=== PATIENT | male | born 1935 | race Caucasian/White ===

== ENCOUNTER → 2017-01-04 | Outpatient (CLI) | payer MEDICARE ==
[~2017-01-04] MED LIST: ACET-2267 PO; AMLO5TAB2 PO; ASP81CT PO; BNZ10T; CHOL200025 PO; CITA20TA7 PO; CLON1TAB3 PO; CLOP75TA28 PO; CLPD75T PO; DEX; DEXA0.5T PO; DEXAMETH; ESOM20CA PO; ESOM20CA32 PO; EZET10TA5; FLUT9.9S NSEACH; GLUC-144 PO; HYDR-3816 PO; KRIL1CAP7 PO; LOSA25TA21 PO; MULT-974 PO; OMEP20CA12; SPIR25TA3 PO; SPRN25T PO; TAMS0.4C2 PO; UBID100C17 PO; citalopram
--- OUTSIDE RECORDS SUMMARY | 2017-01-04 09:25 | XMS REPORT | Continuity of Care Document ---
Author Author [facility] Organization [facility] Address Unknown Phone Unavailable Care Team Providers Care Edging Machine Feeder Name Role Phone Database, Not In PCP Unavailable Source Comments Some departments are not documenting in the electronic medical record. If you do not see the information that you expected, contact Release of Information in the Health Information Management department at [phone] for further assistance in locating additional records.[facility] Active Allergies and Adverse Reactions No Known Allergies Current Medications Prescription Sig. Disp. Refills Start End Date Status Date clopidogrel (PLAVIX) 75 Take 75 mg by mouth Active mg Tab Daily. ezetimibe (ZETIA) 10 mg Take 10 mg by mouth Active tablet Daily. rosuvastatin (CRESTOR) 5 Take 5 mg by mouth Daily. Active mg tablet carvedilol (COREG) 12.5 Take 12.5 mg by mouth Active mg tablet Twice Daily With Meals. spironolactone Take 25 mg by mouth Active (ALDACTONE) 25 mg tablet Daily. citalopram (CELEXA) 10 mg Take 10 mg by mouth Active tablet Daily. dexamethasone (DECADRON) Take 0.25 mg by mouth Active 0.5 mg tablet Daily. ropinirole (REQUIP) 0.5 Take 1 mg by mouth At Active mg tablet Bedtime as needed. aspirin EC 81 mg tablet Take 81 mg by mouth Active Daily. MULTIVITAMINS Take 1 Tab by mouth Active (MULTI-VITAMIN PO) Daily. DOCOSAHEXANOIC ACID/EPA Take 3 Tabs by mouth Active (FISH OIL PO) Daily. lorazepam (ATIVAN) 0.5 mg Take 0.5 mg by mouth Active tablet Three Times Daily as needed. zolpidem (AMBIEN) 5 mg Take 5 mg by mouth At Active tablet Bedtime as needed for Sleep. ranitidine,+, (ZANTAC) Take 150 mg by mouth Active 150 mg tablet Twice Daily. Active Problems Not on file Social History Tobacco Use Types Packs/Day Years Used Date Never Smoker Alcohol Use Drinks/Week oz/Week Comments Yes 1 Cans of 12.0 beer Last Filed Vital Signs Vital Sign Reading Time Taken Blood Pressure 144/87 11/27/2009 12:30 PM REGISTERED RADIATION THERAPIST Pulse 49 11/27/2009 12:30 PM REGISTERED RADIATION THERAPIST Temperature 36.8 C (98.2 F) 11/27/2009 8:13 AM REGISTERED RADIATION THERAPIST Respiratory Rate - - Height 1.829 m (6') 11/26/2009 9:00 AM REGISTERED RADIATION THERAPIST Weight 95.255 kg (210 lb) 11/26/2009 9:00 AM REGISTERED RADIATION THERAPIST Body Mass Index 28.47 11/26/2009 9:00 AM REGISTERED RADIATION THERAPIST Oxygen Saturation 99% 11/27/2009 12:30 PM REGISTERED RADIATION THERAPIST Plan of Care Health Maintenance Due Date Last Done Comments Physical (Comprehensive) 01/16/1942 Exam Pertussis Vaccine 01/16/1946 Tetanus Vaccine 1954 Shingles Vaccine 1997 Prevnar/Pneumovax (#1) 2002 Influenza Vaccine 06/17/2015 Results from Last 3 Months Not on file
[2017-01-04 10:02] LABS: BASOPHILS % (AUTO) 0 % (0-10); EOSINOPHILS # (AUTO) 0.2 10^3/uL (0.0-0.3); EOSINOPHILS % (AUTO) 3 % (0-10); LYMPHOCYTES # (AUTO) 1.8 X 10^3 (1.0-4.0); LYMPHOCYTES % (AUTO) 29 % (12-44); MEAN CORPUSCULAR HEMOGLOBIN 30 PG (25-34); MEAN CORPUSCULAR HGB CONC 34 G/DL (32-36); MEAN CORPUSCULAR VOLUME 87 FL (80-99); MEAN PLATELET VOLUME 10.1 FL (7.4-10.4); MONOCYTES # (AUTO) 0.5 X 10^3 (0.0-1.0); MONOCYTES % (AUTO) 7 % (0-12); NEUTROPHILS # (AUTO) 3.8 X 10^3 (1.8-7.8); NEUTROPHILS % (AUTO) 61 % (42-75); PLATELET COUNT 201 10^3/uL (130-400); RED CELL DISTRIBUTION WIDTH 14.9 % (10.0-14.5); WHITE BLOOD COUNT 6.3 10^3/uL (4.3-11.0)
[2017-01-04 10:24] LABS: ALBUMIN 3.9 G/DL (3.2-4.5); BILIRUBIN,TOTAL 0.8 MG/DL (0.1-1.0); CREATININE SERUM 1.26 MG/DL (0.60-1.30); POTASSIUM 3.9 MMOL/L (3.6-5.0); TOTAL PROTEIN 6.9 G/DL (6.4-8.2)
[2017-01-04 10:45] LABS: THYROID STIMULATING HORMONE 1.8 UIU/ML (0.35-4.94)
== END ==
LOC: LAB 09:21
PROVIDERS: ATTEND Nurse Practitioner Family
DX: I10 Essential (primary) hypertension (principal); I71.4 Abdominal aortic aneurysm, without rupture; I73.9 Peripheral vascular disease, unspecified
CPT/HCPCS: 36415; 80053; 84403; 84443; 85025

== ENCOUNTER → 2017-01-07 | Outpatient (CLI) | payer MEDICARE ==
[~2017-01-07] MED LIST changes: +CATHETER FLUSH 10 ML SYR IV PRN; +IOHEXOL 350 MG/ML 150 ML (OMNIPAQUE 350) VIAL IV ONE; +NS 100 ML (IVPB) BAG IV ONE
--- NOTE | 2017-01-07 14:08 | Diagnostic Imaging Report ---
CT angiogram of the abdomen and pelvis and bilateral lower extremity runoff. INDICATION: Followup AAA repair. COMPARISON: 11/29/15. FINDINGS: CTA abdomen and pelvis: Soft tissue findings demonstrate clear lung bases. Unremarkable liver, spleen, pancreas, and adrenal glands. There are large simple-appearing right renal cysts. There is diverticulosis with no diverticulitis. The prostate is enlarged. There is an infrarenal abdominal aortic aneurysm. There is slight interval increase in its diameter measuring at this time 6.2 x 5.8 cm compared to 6.0 x 5.8 cm previously. This appears to be secondary to development of an endoleak which is most likely a type II endoleak. The source appears to be a lumbar branch at L3 level which has anastomosis with a branch from the proximal aspect of the anterior division of the right internal iliac artery. The endograft and its 2 limbs are patent. There is an old focal dissection flap without flow limitation seen in the mid right external iliac artery. The internal iliac arteries are patent on both sides. There is an ossification developed around the external iliac and common iliac veins on the left side likely secondary to an old hematoma. Patency is not evaluated on this study due to the arterial phase of the exam. Right lower extremity runoff: The right common femoral artery is patent. The right profunda and right SFA are patent with minimal disease. The right popliteal artery is patent. There is prominent calcified plaque in the infrapopliteal vessels. The right anterior tibial artery is patent to the mid calf and is not well evaluated more distally due to calcifications obscuring the lumen with at least moderate to severe disease suggested. The tibioperoneal trunk is patent. The peroneal artery is small in caliber but appears to be faintly opacified to the distal calf. The posterior tibial artery is probably occluded proximally. Left lower extremity runoff: The common femoral artery is patent. The left profunda femoris is patent. The left SFA demonstrates mild to moderate proximal disease. The popliteal artery is patent. The anterior tibial artery demonstrates multiple foci of plaque with at least moderate disease proximally. There is diminished contrast opacification and caliber of the vessel distally compatible with severe disease. The tibioperoneal trunk is patent. The peroneal artery is small in caliber and appears to be occluded in the distal leg. The posterior tibial artery has diffuse plaque with at least moderate disease in the proximal and mid segments. There is probable complete occlusion at the level of the ankle. 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 CTA runoff of the lower extremities: The femoropopliteal segments are patent with no significant disease. There is significant bilateral infrapopliteal disease with multivessel severe stenosis or occlusion as described. Fine details are obscured in the mid and distal calf by beam hardening artifacts from associated prominent atherosclerotic calcifications relative to the size of these vessels. The aneurysm findings and endoleak were discussed with Shai Barahona, vascular PA by Dr. Gibbs at time of dictation. Dictated by: Dictated on workstation # [id number]
== END ==
LOC: RAD 10:14
PROVIDERS: ATTEND Physician Assistant Medical
DX: I71.4 Abdominal aortic aneurysm, without rupture (principal)
CPT/HCPCS: 75635

== ENCOUNTER → 2017-03-22 | Outpatient (CLI) | payer MEDICARE ==
[~2017-03-22] MED LIST changes: +IOHEXOL 350 MG/ML 100 ML (OMNIPAQUE 350) VIAL IV ONE; -IOHEXOL 350 MG/ML 150 ML (OMNIPAQUE 350) VIAL IV ONE
--- NOTE | 2017-03-22 12:05 | Diagnostic Imaging Report ---
TECHNIQUE: The CT angiogram of the abdomen and pelvis was performed without and with intravenous contrast. Coronal and MIP reconstruction images were obtained. COMPARISON: 01/07/2017. CONTRAST: 100 mL of Omnipaque 350 was administered intravenously. FINDINGS: There is an abdominal aortic aneurysm in the infrarenal segment treated with a bifurcating aortoiliac stent graft. The size of the aneurysm is 6.2 x 5.9 cm in maximum axial dimension, similar to 01/07/2017. The previously seen endoleak is less prominent at this time with mildly increased enhancement in the aneurysm sac demonstrated on the delayed phase only. This is suggestive of a slower endoleak compared to the previous exam. The stent graft and its iliac limbs are patent. The renal arteries appear patent. The SMA is patent. 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 This is similar to prior exams including 09/13/2014. The external iliac arteries are patent. There is a large ossification seen surrounding the left common iliac vein, probably related to an old hematoma. Soft tissue findings include a clear appearance of the lung bases. There is diffuse hepatic steatosis. The pancreas, spleen, and adrenals appear unremarkable. Bilateral prominent renal cysts are noted without change. No hydronephrosis. The urinary bladder appears unremarkable. The prostate is enlarged measuring 5.5 cm in transverse dimension. There is diverticulosis. No diverticulitis. No significantly enlarged lymph nodes are seen in the abdomen or pelvis. The osseous structures demonstrate prominent degenerative changes. IMPRESSION: 1. Stable 6.2 cm infrarenal AAA with improvement in the previously seen endoleak. There is improvement in the previously seen endoleak opacifying the sac on the arterial phase. There is, however, evidence of a slow endoleak seen only on the delayed phase imaging. 2. 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 3. Diverticulosis. No definite colitis. 4. Hepatic steatosis. Dictated by: Dictated on workstation # [id number]
== END ==
LOC: RAD 07:48
PROVIDERS: ATTEND Physician Assistant Medical
DX: I71.4 Abdominal aortic aneurysm, without rupture (principal); K76.0 Fatty (change of) liver, not elsewhere classified; K57.30 Diverticulosis of large intestine without perforation or abscess without bleeding
CPT/HCPCS: 74174

== ENCOUNTER → 2017-03-22 | Outpatient (CLI) | payer MEDICARE ==
[~2017-03-22] MED LIST changes: -CATHETER FLUSH 10 ML SYR IV PRN; -IOHEXOL 350 MG/ML 100 ML (OMNIPAQUE 350) VIAL IV ONE; -NS 100 ML (IVPB) BAG IV ONE
[2017-03-22 08:26] LABS: CREATININE SERUM 1.21 MG/DL (0.60-1.30)
== END ==
LOC: LAB 07:53
PROVIDERS: ATTEND Nurse Practitioner Family
DX: Z01.812 Encounter for preprocedural laboratory examination (principal)
CPT/HCPCS: 36415; 82565; 84520

== ENCOUNTER 2017-10-20 05:38 | Outpatient (CLI) | payer MEDICARE ==
[~2017-10-20] VITALS: Ht 182.9 cm; Wt 98.0 kg
[2017-10-20] MEDS ORDERED: LOSA50TA36 PO (15:04)
[2017-10-20] MEDS ORDERED: CETI10TA17 PO (15:04)
[2017-10-20] MEDS ORDERED: ASPI-999 PO (15:04)
[2017-10-20] MEDS ORDERED: PANT40TA3 PO (15:04)
[2017-10-20] MEDS ORDERED: DUTA0.5C14 PO (15:04)
[2017-10-20] MEDS ORDERED: ALLO100T PO (15:04)
[2017-10-20] MEDS ORDERED: CITA20TA7 PO (15:04)
== END 2017-10-20 15:05 ==
LOC: PREOP 05:38
PROVIDERS: ATTEND Surgery
DX: Z01.818 Encounter for other preprocedural examination (principal); R13.10 Dysphagia, unspecified

== ENCOUNTER 2017-10-25 09:13 | Day surgery (SDC) | payer MEDICARE ==
[~2017-10-25] VITALS: Ht 182.9 cm; Wt 98.0 kg
[~2017-10-25 09:13] MED LIST changes: +ALLO100T PO; +ASPI-999 PO; +CETI10TA17 PO; +DUTA0.5C14 PO; +LOSA50TA36 PO; +PANT40TA3 PO
--- OUTSIDE RECORDS SUMMARY | 2017-10-25 09:16 | XMS REPORT | Clinical Summary ---
Author Author [facility] Organization [facility] Address Unknown Phone Unavailable Care Team Providers Care Slash Trimmer Name Role Phone PCP Unavailable Source Comments Some departments are not documenting in the electronic medical record. If you do not see the information that you expected, contact Release of Information in the Health Information Management department at [phone] for further assistance in locating additional records.[facility] Allergies No Known Allergies Current Medications Prescription Sig. [...] Comments Yes 1 Cans of 12.0 beer Sex Assigned at Date Recorded Not on file Last Filed Vital Signs Vital Sign Reading Time Taken Blood Pressure 144/87 11/27/2009 12:30 PM CORK COMPOUNDER Pulse 49 11/27/2009 12:30 PM CORK COMPOUNDER Temperature 36.8 C (98.2 F) 11/27/2009 8:13 AM CORK COMPOUNDER Respiratory Rate - - Oxygen Saturation 99% 11/27/2009 12:30 PM CORK COMPOUNDER Inhaled Oxygen - - Concentration Weight 95.3 kg (210 lb) 11/26/2009 9:00 AM CORK COMPOUNDER Height 182.9 cm (6') 11/26/2009 9:00 AM CORK COMPOUNDER Body Mass Index 28.48 11/26/2009 9:00 AM CORK COMPOUNDER Plan of Treatment Health Maintenance Due Date Last Done Comments PHYSICAL (COMPREHENSIVE) 01/16/1942 EXAM PERTUSSIS VACCINE 01/16/1948 TETANUS VACCINE 1954 SHINGLES VACCINE 1997 PREVNAR/PNEUMOVAX (#1) 2002 INFLUENZA VACCINE 05/17/2017 Results Not on filefrom Last 3 Months
--- OUTSIDE RECORDS SUMMARY | 2017-10-25 09:17 | XMS REPORT | Continuity of Care Document ---
Author Author [facility] Organization [facility] Address Unknown Phone Unavailable Allergies Active Description Code Type Severity Reaction Onset Reported/Identified Relationship to Patient Clinical Status Yes NKANo Known Allergies NKA Miscellaneous Allergy Unknown N/A 12/17/2006 Yes No Known Allergies No Known Allergies Drug Allergy Unknown N/A 2015 Yes iodine iodine Drug Allergy Unknown UNKNOWN 12/29/2016 Medications There is no data. Problems Date Dx Coded Attending Type Code Diagnosis Diagnosed By 09/13/2014 AMELIE SANDERSON MD Ot 401.9 09/13/2014 AMELIE SANDERSON MD Ot 414.01 09/13/2014 AMELIE SANDERSON MD Ot 441.4 09/13/2014 AMELIE SANDERSON MD Ot 786.50 09/13/2014 AMELIE SANDERSON MD Ot 789.06 09/13/2014 AMELIE SANDERSON MD Ot V45.82 12/11/2014 DOUG SINGH MD Ot 729.5 12/11/2014 DOUG SINGH MD Ot 793.7 12/11/2014 DOUG SINGH MD Ot 729.5 12/11/2014 DOUG SINGH MD Ot 793.7 01/09/2015 Ot 593.2 01/09/2015 Ot 599.72 05/27/2015 DOUG SINGH MD Ot 729.5 05/27/2015 DOUG SINGH MD Ot 793.7 05/27/2015 Ot 593.2 05/27/2015 Ot 599.72 06/09/2015 DOUG SINGH MD Ot 729.5 06/09/2015 DOUG SINGH MD Ot 793.7 06/09/2015 Ot 593.2 06/09/2015 Ot 599.72 06/09/2015 MADISON CARLP Ot 715.36 06/09/2015 MADISON CARL TAX PROFESSIONAL Ot 717.3 06/09/2015 MADISON CARL TAX PROFESSIONAL Ot 717.40 06/09/2015 MADISON CARL TAX PROFESSIONAL Ot 726.60 06/09/2015 MADISON CARL TAX PROFESSIONAL Ot 727.43 06/11/2015 FRANCISCO ORDONEZ, DOUG Payan Ot 729.5 06/11/2015 FRANCISCO ORDONEZ, DOUG Payan Ot 793.7 06/11/2015 Ot 593.2 06/11/2015 Ot 599.72 06/11/2015 MADISON CARL TAX PROFESSIONAL Ot 715.36 06/11/2015 MADISON CARL TAX PROFESSIONAL Ot 717.3 06/11/2015 MADISON CARL TAX PROFESSIONAL Ot 717.40 06/11/2015 MADISON CARL TAX PROFESSIONAL Ot 726.60 06/11/2015 MADISON CARL TAX PROFESSIONAL Ot 727.43 06/11/2015 XOCHITL ORDONEZ, EMILEE P Ot 836.0 06/11/2015 XOCHITL ORDONEZ, EMILEE P Ot 836.1 06/11/2015 XOCHITL ORDONEZ, EMILEE P Ot E000.8 06/11/2015 XOCHITL ORDONEZ, EMILEE P Ot E928.9 06/11/2015 XOCHITL ORDONEZ, EMILEE P Ot V72.84 06/11/2015 XOCHITL ORDONEZ, EMILEE P Ot V74.8 06/11/2015 XOCHITL ORDONEZ, EMILEE P Ot 733.92 06/11/2015 XOCHITL ORDONEZ, EMILEE P Ot 836.0 06/11/2015 XOCHITL ORDONEZ, EMILEE P Ot 836.1 06/11/2015 XOCHITL ORDONEZ, EMILEE P Ot E000.8 06/11/2015 XOCHITL ORDONEZ, EMILEE P Ot E927.0 06/11/2015 XOCHITL ORDONEZ, EMILEE P Ot V57.1 06/17/2015 MAIDSON CARL TAX PROFESSIONAL Ot 715.36 06/17/2015 MADISON CARL TAX PROFESSIONAL Ot 717.3 06/17/2015 MADISON CARL TAX PROFESSIONAL Ot 717.40 06/17/2015 MADISON CARL TAX PROFESSIONAL Ot 726.60 06/17/2015 MADISON CARL TAX PROFESSIONAL Ot 727.43 06/26/2015 CARL MADISON Daniela TAX PROFESSIONAL Ot 715.36 06/26/2015 SIDDHARTHA MADISON Daniela TAX PROFESSIONAL Ot 717.3 06/26/2015 SIDDHARTHA MADISON Daniela TAX PROFESSIONAL Ot 717.40 06/26/2015 CARL, MADISON Daniela TAX PROFESSIONAL Ot 726.60 06/26/2015 SIDDHARTHA MADISON Daniela TAX PROFESSIONAL Ot 727.43 11/27/2015 FRANCISCO ORDONEZ, DOUG Payan Ot 729.5 11/27/2015 DOUG SINGH MD Ot 793.7 11/27/2015 Ot 593.2 11/27/2015 Ot 599.72 11/27/2015 SIDDHARTHA MADISON D TAX PROFESSIONAL Ot 715.36 11/27/2015 SIDDHARTHA MADISON Daniela TAX PROFESSIONAL Ot 717.3 11/27/2015 SIDDHARTHA MADISON Daniela TAX PROFESSIONAL Ot 717.40 11/27/2015 SIDDHARTHA MADISON Daniela TAX PROFESSIONAL Ot 726.60 11/27/2015 SIDDHARTHA MADISON D TAX PROFESSIONAL Ot 727.43 11/27/2015 XOCHITL ORDONEZ, EMILEE P Ot 836.0 11/27/2015 XOCHITL ORDONEZ, EMILEE P Ot 836.1 11/27/2015 XOCHITL ORDONEZ, EMILEE P Ot E000.8 11/27/2015 XOCHITL ORDONEZ, EMILEE P Ot E928.9 11/27/2015 XOCHITL ORDONEZ, EMILEE P Ot V72.84 11/27/2015 XOCHITL ORDONEZ, EMILEE P Ot V74.8 11/29/2015 DAPHNE BHATT MD Ot D50.0 IRON DEFICIENCY ANEMIA SECONDARY TO BLOO 11/29/2015 DAPHNE BHATT MD Ot I10 ESSENTIAL (PRIMARY) HYPERTENSION 11/29/2015 DAPHNE BHATT MD Ot 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 11/29/2015 DAPHNE BHATT MD Ot J18.9 PNEUMONIA, UNSPECIFIED ORGANISM 11/29/2015 DAPHNE BHATT MD Ot J95.89 OTH POSTPROC COMPLICATIONS AND DISORDERS 11/29/2015 DAPHNE BHATT MD Ot R09.02 HYPOXEMIA 11/29/2015 DAPHNE BHATT MD, Ot T82.7XXA INFECT/INFLM REACT D/T OTH CARDI/VASC DE 11/29/2015 DAPNHE BHATT MD Ot Z87.891 PERSONAL HISTORY OF NICOTINE DEPENDENCE 11/29/2015 DAPHNE BHATT MD Ot Z95.5 PRESENCE OF CORONARY ANGIOPLASTY IMPLANT 11/29/2015 DAPHNE BHATT MD Ot Z95.828 PRESENCE OF OTHER VASCULAR IMPLANTS AND 11/29/2015 DAPHNE BHATT MD Ot Z98.89 OTHER SPECIFIED POSTPROCEDURAL STATES 04/08/2016 ESPERANZA ORDONEZ, LORENA I Ot N28.1 CYST OF KIDNEY, ACQUIRED 04/08/2016 LORENA MATA MD I Ot N28.1 CYST OF KIDNEY, ACQUIRED 05/04/2016 LORENA MATA MD I Ot N28.1 CYST OF KIDNEY, ACQUIRED 05/18/2016 LORENA MATA MD I Ot N28.1 CYST OF KIDNEY, ACQUIRED 06/17/2016 LORENA MATA MD I Ot N28.1 CYST OF KIDNEY, ACQUIRED 01/04/2017 GARCIA KRAFT TENNIS COACH Ot I10 ESSENTIAL (PRIMARY) HYPERTENSION 01/05/2017 GARCIA KRAFT TENNIS COACH Ot I10 ESSENTIAL (PRIMARY) HYPERTENSION 01/05/2017 GARCIA KRAFT APRN Ot 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, 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 01/05/2017 GARCIA KRAFT TENNIS COACH Ot I73.9 PERIPHERAL VASCULAR DISEASE, UNSPECIFIED 01/05/2017 GARCIA KRAFT TENNIS COACH Ot I10 ESSENTIAL (PRIMARY) HYPERTENSION 01/05/2017 GARCIA KRAFT APRN Ot 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, 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 01/05/2017 GARCIA KRAFT TENNIS COACH Ot I73.9 PERIPHERAL VASCULAR DISEASE, UNSPECIFIED 01/07/2017 LORENA MATA MD I Ot N28.1 CYST OF KIDNEY, ACQUIRED 01/07/2017 MILES HOLLAND PA-C Ot 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, 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 01/10/2017 GARCIA KRAFT TENNIS COACH Ot I10 ESSENTIAL (PRIMARY) HYPERTENSION 01/10/2017 GARCIA KRAFT TENNIS COACH Ot 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, 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 01/10/2017 GARCIA KRAFT APRN Ot I73.9 PERIPHERAL VASCULAR DISEASE, UNSPECIFIED 01/10/2017 SKYLERMILES PA-C Ot 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, 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 01/26/2017 GARCIA KRAFT TENNIS COACH Ot I10 ESSENTIAL (PRIMARY) HYPERTENSION 01/26/2017 GARCIA KRAFT TENNIS COACH Ot 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, 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 01/26/2017 GARCIA KRAFT TENNIS COACH Ot I73.9 PERIPHERAL VASCULAR DISEASE, UNSPECIFIED 01/28/2017 SKYLER MILES Pereira PA-C Ot 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, 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 02/04/2017 SKYLER MILES Pereira PA-C Ot 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 <section xmlns="urn:hl7-org:v3" xmlns:xsi="http:// www.Tag[employer]aur[employer].org/2001/XMLSchema-instance"> <templateId root= "[email or web address]" /> <templateId root= "[email or web address]" /> <code codeSystemName="LOINC" codeSystem= "[id number]" code="82311-5" displayName="Results" /> <title>Results< /title> <text> <table> <thead> <tr> <th>Test</th> <th>Result</th> <th>Range</th> </tr> </thead> < tbody> <tr> <th colspan="10">CBC W/DIFF - 11/17/15 12:00</th> </tr> <tr> <td>EOSINOPHIL #</td> <td>0.2 k/cumm</ td> <td>0.1-0.5</td> </tr> <tr> <td>EOSINOPHIL & #37;</td> <td>3 %</td> <td>2-4</td> </tr> < tr> <td>GRANULOCYTE #</td> <td>3.4 k/cumm</td> <td> 2.0-9.0</td> </tr> <tr> <td>GRANULOCYTE %</td> <td>57 %</td> <td>50-75</td> </tr> <tr> <td>LYMPHOCYTE #</td> <td>1.9 k/cumm</td> <td>1.0-4.0</td> </tr> <tr> <td>LYMPHOCYTE %</td> <td>32 %< /td> <td>20-30</td> </tr> <tr> <td>MEAN CELL HGB </td> <td>29.5 pg</td> <td>27.0-33.0</td> </tr> <tr> <td>MEAN CELL HGB CONCENTRATION</td> <td>34.4 g/dL</td> <td>32.0-37.0</td> </tr> <tr> <td>MEAN CELL VOLUME</td> <td>85.6 fl</td> <td>80.0-100.0</td> </tr> <tr> <td>MONOCYTE #</td> <td>0.5 k/cumm</td> <td>0.1-1.0</td> </tr> <tr> <td>MONOCYTE %</td> <td>8 %</td> <td>4-6</td> </tr> <tr> < td>RED BLOOD CELL</td> <td>4.99 m/cumm</td> <td>4.00-6.00</td > </tr> <tr> <td>RED CELL DISTRIBUTION WIDTH</td> <td>14.4 %</td> <td>11.0-15.6</td> </tr> <tr> <td>WHITE BLOOD CELL</td> <td>6.0 k/cumm</td> <td>5.0- 10.0</td> </tr> <tr> <td>HEMOGLOBIN</td> <td> 14.7 gm/dL</td> <td>14.0-18.0</td> </tr> <tr> < td>HEMATOCRIT</td> <td>42.7 %</td> <td>40.0-54.0</td> </tr> <tr> <td>PLATELET COUNT</td> <td>217 k/cumm</ td> <td>150-450</td> </tr> <tr> <th colspan="10 ">PLT FUNCTION, P2Y12 (PLAVIX) - 11/17/15 12:00</th> </tr> <tr> <td>PLATELET COUNT</td> <td>217 k/cumm</td> <td>150- 450</td> </tr> <tr> <td>PLT FUNCTION P2Y12</td> <td>172 PRU</td> <td>194-418</td> </tr> <tr> < th colspan="10">METABOLIC PANEL, BASIC - 11/17/15 12:00</th> </tr> <tr> <td>POTASSIUM</td> <td>3.9 mmol/L</td> <td>3.5 -5.3</td> </tr> <tr> <td>EST GFR (MDRD)</td> <td >59 mL/min</td> <td>> 59</td> </tr> <tr> <td> ANION GAP</td> <td>13 mmol/L</td> <td>5-15</td> </tr> <tr> <td>GLUCOSE</td> <td>92 mg/dL</td> <td>70 -99</td> </tr> <tr> <td>CALCIUM</td> <td>9.0 mg/ dL</td> <td>8.5-10.1</td> </tr> <tr> <td>BLOOD UREA NITROGEN</td> <td>15 mg/dL</td> <td>7-20</td> </tr > <tr> <td>CREATININE</td> <td>1.2 mg/dL</td> <td>0.7-1.3</td> </tr> <tr> <td>SODIUM</td> <td> 140 mmol/L</td> <td>135-148</td> </tr> <tr> <td> CHLORIDE</td> <td>105 mmol/L</td> <td>98-110</td> </tr > <tr> <td>CARBON DIOXIDE</td> <td>22 mmol/L</td> <td>21-32</td> </tr> <tr> < colspan="10"> HEMOGLOBIN - 11/17/15 18:26</th> </tr> <tr> <td>MEAN CELL VOLUME</td> <td>86.8 fl</td> <td>80.0-100.0</td> < /tr> <tr> <td>HEMOGLOBIN</td> <td>12.4 gm/dL</td> <td>14.0-18.0</td> </tr> <tr> < colspan="10"> HEMATOCRIT - 11/17/15 18:26</th> </tr> <tr> <td>MEAN CELL VOLUME</td> <td>87.0 fl</td> <td>80.0-100.0</td> < /tr> <tr> <td>HEMATOCRIT</td> <td>36.2 %</td> <td>40.0-54.0</td> </tr> <tr> < colspan="10"> URINALYSIS, NO REFLEX CULTURE - 11/17/15 22:45</th> </tr> <tr> <td>UA LEUKOCYTE ESTERASE DIPSTICK</td> <td>TRACE </td> <td>NEGATIVE</td> </tr> <tr> <td>UA NITRITE DIPSTICK</ td> <td>NEGATIVE </td> <td>NEGATIVE</td> </tr> < tr> <td>UA PROTEIN DIPSTICK</td> <td>TRACE </td> <td> NEGATIVE</td> </tr> <tr> <td>UA GLUCOSE DIPSTICK</td> <td>NEGATIVE </td> <td>NEGATIVE</td> </tr> <tr> <td>UA KETONE DIPSTICK</td> <td>1+ </td> <td>NEGATIVE< /td> </tr> <tr> <td>UA UROBILINOGEN DIPSTICK</td> <td>NORMAL </td> <td>NORMAL</td> </tr> <tr> < td>UA BILIRUBIN DIPSTICK</td> <td>NEGATIVE </td> <td>NEGATIVE< /td> </tr> <tr> <td>UA BLOOD DIPSTICK</td> <td>4 + </td> <td>NEGATIVE</td> </tr> <tr> <td>UA SPECIFIC GRAVITY</td> <td>1.015 </td> <td>1.015-1.025</td> </tr> <tr> <td>UR PH</td> <td>5.0 </td> < td>5.0-7.0</td> </tr> <tr> < colspan="10">UA MICROSCOPIC - 11/17/15 22:45</th> </tr> <tr> <td>UA BACTERIA</td> <td>1+ </td> <td>NEGATIVE</td> </tr> <tr> <td>UA MUCUS</td> <td>1+ </td> <td>NEG TO 1+ </td> </tr> <tr> <td>UA RBC</td> <td>50-100 rbc/ hpf</td> <td>0 - 3</td> </tr> <tr> <td>UA VOLUME FOR EXAM</td> <td>12.0 mL</td> <td>(12mL STD)</td> </tr> <tr> <td>UA WBC</td> <td>2-5 wbc/hpf</td> <td>0 - 5</td> </tr> <tr> < colspan="10">CBC - 11/18/15 05:03</th> </tr> <tr> <td>MEAN CELL HGB</td> <td>29.3 pg</td> <td>27.0-33.0</td> </tr> <tr> <td>MEAN CELL HGB CONCENTRATION</td> <td>32.9 g/dL</td> <td>32.0-37.0</td> </tr> <tr> <td>MEAN CELL VOLUME</td > <td>89.2 fl</td> <td>80.0-100.0</td> </tr> <tr > <td>RED BLOOD CELL</td> <td>3.34 m/cumm</td> <td> 4.00-6.00</td> </tr> <tr> <td>RED CELL DISTRIBUTION WIDTH </td> <td>14.4 %</td> <td>11.0-15.6</td> </tr> <tr> <td>WHITE BLOOD CELL</td> <td>9.9 k/cumm</td> <td>5.0-10.0</td> </tr> <tr> <td>HEMOGLOBIN</td> <td>9.8 gm/dL</td> <td>14.0-18.0</td> </tr> <tr> <td>HEMATOCRIT</td> <td>29.8 %</td> <td>40.0-54.0</ td> </tr> <tr> <td>PLATELET COUNT</td> <td>179 k /cumm</td> <td>150-450</td> </tr> <tr> <th colspan="10">METABOLIC PANEL, BASIC - 11/18/15 05:03</th> </tr> < tr> <td>POTASSIUM</td> <td>4.3 mmol/L</td> <td>3.5- 5.3</td> </tr> <tr> <td>EST GFR (MDRD)</td> <td> 59 mL/min</td> <td>> 59</td> </tr> <tr> <td> ANION GAP</td> <td>12 mmol/L</td> <td>5-15</td> </tr> <tr> <td>EST CrCl (CG)</td> <td>> 60 mL/min</td> <td>> 59</td> </tr> <tr> <td>GLUCOSE</td> <td>114 mg/dL</td> <td>70-99</td> </tr> <tr> <td>CALCIUM</td> <td>8.2 mg/dL</td> <td>8.5-10.1</td> </tr> <tr> <td>BLOOD UREA NITROGEN</td> <td>17 mg/dL </td> <td>7-20</td> </tr> <tr> <td>CREATININE</ td> <td>1.2 mg/dL</td> <td>0.7-1.3</td> </tr> < tr> <td>SODIUM</td> <td>141 mmol/L</td> <td>135-148</ td> </tr> <tr> <td>CHLORIDE</td> <td>106 mmol/L< /td> <td>98-110</td> </tr> <tr> <td>CARBON DIOXIDE</td> <td>23 mmol/L</td> <td>21-32</td> </tr> <tr> < colspan="10">CBC - 11/19/15 06:59</th> </tr> <tr> <td>MEAN CELL HGB</td> <td>29.8 pg</td> <td> 27.0-33.0</td> </tr> <tr> <td>MEAN CELL HGB CONCENTRATION </td> <td>33.3 g/dL</td> <td>32.0-37.0</td> </tr> <tr> <td>MEAN CELL VOLUME</td> <td>89.3 fl</td> < td>80.0-100.0</td> </tr> <tr> <td>RED BLOOD CELL</td> <td>3.19 m/cumm</td> <td>4.00-6.00</td> </tr> <tr > <td>RED CELL DISTRIBUTION WIDTH</td> <td>14.3 %</td> <td>11.0-15.6</td> </tr> <tr> <td>WHITE BLOOD CELL </td> <td>11.3 k/cumm</td> <td>5.0-10.0</td> </tr> <tr> <td>HEMOGLOBIN</td> <td>9.5 gm/dL</td> <td> 14.0-18.0</td> </tr> <tr> <td>HEMATOCRIT</td> < td>28.5 %</td> <td>40.0-54.0</td> </tr> <tr> <td>PLATELET COUNT</td> <td>176 k/cumm</td> <td>150-450</td > </tr> <tr> < colspan="10">ARTERIAL BLOOD GAS - 15:44</th> </tr> <tr> <td>COMMENT</td> <td> 2L NC </td> <td /> </tr> <tr> <td>ABG BASE EXCESS</td> <td>-2.8 meq/L</td> <td>-3.0-3.0</td> </tr > <tr> <td>ABG DEVICE</td> <td>NC </td> <td / > </tr> <tr> <td>ABG FIO2</td> <td>0.28 %</ td> <td /> </tr> <tr> <td>ABG BICARBONATE</td> <td>19.6 meq/L</td> <td>23.0-28.0</td> </tr> <tr > <td>ABG VENT MODE</td> <td>2L </td> <td /> < /tr> <tr> <td>ABG PCO2</td> <td>27 mm Hg</td> <td>34-45</td> </tr> <tr> <td>ABG PH</td> <td> 7.48 </td> <td>7.35-7.45</td> </tr> <tr> <td> ABG PO2</td> <td>89 mm Hg</td> <td>75-100</td> </tr> <tr> <td>ABG PATIENT POSITION</td> <td>SF </td> <td /> </tr> <tr> <td>ABG O2 SATURATION</td> < td>97 %</td> <td>93-100</td> </tr> <tr> <td> ABG SITE</td> <td>RT BRACH </td> <td /> </tr> < tr> <th colspan="10">MRSA SURVEILLANCE SCREEN - 11/29/15 15:53</th> </tr> <tr> <td>Microbiology</td> <td> </td> <td /> </tr> <tr> <th colspan="10">CBC - 11/30/15 04: 36</th> </tr> <tr> <td>MEAN CELL HGB</td> <td> 28.9 pg</td> <td>27.0-33.0</td> </tr> <tr> <td> MEAN CELL HGB CONCENTRATION</td> <td>32.7 g/dL</td> <td>32.0- 37.0</td> </tr> <tr> <td>MEAN CELL VOLUME</td> < td>88.2 fl</td> <td>80.0-100.0</td> </tr> <tr> < td>RED BLOOD CELL</td> <td>3.57 m/cumm</td> <td>4.00-6.00</td > </tr> <tr> <td>RED CELL DISTRIBUTION WIDTH</td> <td>15.0 %</td> <td>11.0-15.6</td> </tr> <tr> <td>WHITE BLOOD CELL</td> <td>7.9 k/cumm</td> <td>5.0- 10.0</td> </tr> <tr> <td>HEMOGLOBIN</td> <td> 10.3 gm/dL</td> <td>14.0-18.0</td> </tr> <tr> < td>HEMATOCRIT</td> <td>31.5 %</td> <td>40.0-54.0</td> </tr> <tr> <td>PLATELET COUNT</td> <td>466 k/cumm</ td> <td>150-450</td> </tr> <tr> <th colspan="10 ">METABOLIC PANEL, BASIC - 11/30/15 04:36</th> </tr> <tr> <td>POTASSIUM</td> <td>3.7 mmol/L</td> <td>3.5-5.3</td> </tr> <tr> <td>EST GFR (MDRD)</td> <td>49 mL/min</ td> <td>> 59</td> </tr> <tr> <td>ANION GAP</ td> <td>11 mmol/L</td> <td>5-15</td> </tr> <tr> <td>EST CrCl (CG)</td> <td>51 mL/min</td> <td>> 59</td> </tr> <tr> <td>GLUCOSE</td> <td>139 mg/ dL</td> <td>70-99</td> </tr> <tr> <td>CALCIUM</ td> <td>8.7 mg/dL</td> <td>8.5-10.1</td> </tr> < tr> <td>BLOOD UREA NITROGEN</td> <td>21 mg/dL</td> < td>7-20</td> </tr> <tr> <td>CREATININE</td> <td> 1.4 mg/dL</td> <td>0.7-1.3</td> </tr> <tr> <td> SODIUM</td> <td>140 mmol/L</td> <td>135-148</td> </tr> <tr> <td>CHLORIDE</td> <td>109 mmol/L</td> < td>98-110</td> </tr> <tr> <td>CARBON DIOXIDE</td> <td>20 mmol/L</td> <td>21-32</td> </tr> <tr> < colspan="10">PHOSPHORUS - 11/30/15 04:36</th> </tr> <tr> <td>PHOSPHORUS</td> <td>3.0 mg/dL</td> <td>2.5-4.9</td> </tr> <tr> < colspan="10">CREATINE KINASE (CK/CPK) - 04:36</th> </tr> <tr> <td>CREATINE KINASE (CK/CPK) </td> <td>53 Units/L</td> <td>< 309</td> </tr> <tr> < colspan="10">MAGNESIUM - 11/30/15 04:36</th> </tr> <tr> <td>MAGNESIUM</td> <td>1.9 mg/dL</td> <td >1.8-2.4</td> </tr> <tr> < colspan="10">C REACTIVE PROTEIN - 11/30/15 04:36</th> </tr> <tr> <td>C REACTIVE PROTEIN</td> <td>6.0 mg/dL</td> <td>0.00-0.90</td> </tr > <tr> < colspan="10">SED RATE WESTERGREN - 11/30/15 04:36</th > </tr> <tr> <td>SED RATE WESTERGREN</td> <td> 86 mm/hr</td> <td>0-20</td> </tr> <tr> < colspan="10">VENOUS BLOOD GAS - 11/30/15 04:41</th> </tr> <tr> <td>VBG BASE EXCESS</td> <td>-2.1 mEq/L</td> <td>-3.0- 3.0</td> </tr> <tr> <td>VBG BICARBONATE</td> <td >21.0 meq/L</td> <td>21-30</td> </tr> <tr> <td> VBG PCO2</td> <td>31 mm Hg</td> <td>41-51</td> </tr> <tr> <td>VBG PH</td> <td>7.46 </td> <td>7.33- 7.43</td> </tr> <tr> <td>VBG PO2</td> <td>60 mm Hg</td> <td>35-40</td> </tr> <tr> <td>VBG O2 SATURATION</td> <td>90 %</td> <td>65-75</td> </tr> <tr> <td>COMMENT</td> <td>2L </td> <td /> </tr> <tr> <th colspan="10">BLOOD CULTURE - 11/30/15 10:37< /th> </tr> <tr> <td>Microbiology</td> <td> </td > <td /> </tr> <tr> <th colspan="10">BLOOD CULTURE - 11/30/15 10:48</th> </tr> <tr> <td>Microbiology </td> <td> </td> <td /> </tr> <tr> <th colspan="10">CBC - 12/01/15 04:39</th> </tr> <tr> <td> MEAN CELL HGB</td> <td>28.9 pg</td> <td>27.0-33.0</td> </tr> <tr> <td>MEAN CELL HGB CONCENTRATION</td> <td> 32.9 g/dL</td> <td>32.0-37.0</td> </tr> <tr> <td >MEAN CELL VOLUME</td> <td>87.8 fl</td> <td>80.0-100.0</td> </tr> <tr> <td>RED BLOOD CELL</td> <td>3.53 m/ cumm</td> <td>4.00-6.00</td> </tr> <tr> <td>RED CELL DISTRIBUTION WIDTH</td> <td>14.9 %</td> <td>11.0-15.6 </td> </tr> <tr> <td>WHITE BLOOD CELL</td> <td> 8.9 k/cumm</td> <td>5.0-10.0</td> </tr> <tr> <td >HEMOGLOBIN</td> <td>10.2 gm/dL</td> <td>14.0-18.0</td> </tr> <tr> <td>HEMATOCRIT</td> <td>31.0 %</td> <td>40.0-54.0</td> </tr> <tr> <td>PLATELET COUNT< /td> <td>478 k/cumm</td> <td>150-450</td> </tr> <tr> <th colspan="10">METABOLIC PANEL, BASIC - 12/01/15 04:39</th> </tr> <tr> <td>POTASSIUM</td> <td>3.8 mmol/L</td> <td>3.5-5.3</td> </tr> <tr> <td>EST GFR (MDRD)</ td> <td>53 mL/min</td> <td>> 59</td> </tr> < tr> <td>ANION GAP</td> <td>11 mmol/L</td> <td>5-15</ td> </tr> <tr> <td>EST CrCl (CG)</td> <td>55 mL/ min</td> <td>> 59</td> </tr> <tr> <td>GLUCOSE </td> <td>95 mg/dL</td> <td>70-99</td> </tr> <tr > <td>CALCIUM</td> <td>8.8 mg/dL</td> <td>8.5-10.1</ td> </tr> <tr> <td>BLOOD UREA NITROGEN</td> <td> 27 mg/dL</td> <td>7-20</td> </tr> <tr> <td> CREATININE</td> <td>1.3 mg/dL</td> <td>0.7-1.3</td> </ tr> <tr> <td>SODIUM</td> <td>140 mmol/L</td> < td>135-148</td> </tr> <tr> <td>CHLORIDE</td> <td >108 mmol/L</td> <td>98-110</td> </tr> <tr> <td> CARBON DIOXIDE</td> <td>21 mmol/L</td> <td>21-32</td> < /tr> <tr> < colspan="10">PHOSPHORUS - 12/01/15 04:39</th> </tr> <tr> <td>PHOSPHORUS</td> <td>3.1 mg/dL</td> <td>2.5-4.9</td> </tr> <tr> < colspan="10"> MAGNESIUM - 12/01/15 04:39</th> </tr> <tr> <td>MAGNESIUM< /td> <td>1.8 mg/dL</td> <td>1.8-2.4</td> </tr> < tr> < colspan="10">FERRITIN - 12/01/15 04:39</th> </tr> <tr> <td>FERRITIN</td> <td>175 ng/mL</td> <td>26- 388</td> </tr> <tr> <th colspan="10">IRON W/ BINDING CAPACITY - 12/01/15 04:39</th> </tr> <tr> <td>IRON SATURATION</td> <td>13 % SAT</td> <td>11-46</td> </ tr> <tr> <td>IRON BINDING CAPACITY, TOTAL</td> <td>229 mcg/dL</td> <td>250-450</td> </tr> <tr> <td>IRON </td> <td>30 mcg/dL</td> <td>35-150</td> </tr> < tr> <th colspan="10">CBC - 05/03/16 06:55</th> </tr> <tr > <td>MEAN CELL HGB</td> <td>28.8 pg</td> <td>27.0- 33.0</td> </tr> <tr> <td>MEAN CELL HGB CONCENTRATION</td > <td>33.9 g/dL</td> <td>32.0-37.0</td> </tr> < tr> <td>MEAN CELL VOLUME</td> <td>84.9 fl</td> <td> 80.0-100.0</td> </tr> <tr> <td>RED BLOOD CELL</td> <td>4.65 m/cumm</td> <td>4.00-6.00</td> </tr> <tr> <td>RED CELL DISTRIBUTION WIDTH</td> <td>15.2 %</td> <td>11.0-15.6</td> </tr> <tr> <td>WHITE BLOOD CELL</ td> <td>5.7 k/cumm</td> <td>5.0-10.0</td> </tr> <tr> <td>HEMOGLOBIN</td> <td>13.4 gm/dL</td> <td>14.0 -18.0</td> </tr> <tr> <td>HEMATOCRIT</td> <td> 39.5 %</td> <td>40.0-54.0</td> </tr> <tr> < td>PLATELET COUNT</td> <td>180 k/cumm</td> <td>150-450</td> </tr> <tr> <th colspan="10">PROTHROMBIN TIME WITH INR - 06:55</th> </tr> <tr> <td>INTERNATIONAL NORMAL RATIO</td> <td>0.9 </td> <td>0.9-1.1</td> </tr> <tr> <td>PROTHROMBIN TIME</td> <td>10.9 sec</td> <td> 10.0-12.9</td> </tr> <tr> <th colspan="10">METABOLIC PANEL, BASIC - 05/03/16 06:55</th> </tr> <tr> <td> POTASSIUM</td> <td>4.1 mmol/L</td> <td>3.5-5.3</td> </ tr> <tr> <td>EST GFR (MDRD)</td> <td>53 mL/min</td> <td>> 59</td> </tr> <tr> <td>ANION GAP</td> <td>9 mmol/L</td> <td>5-15</td> </tr> <tr> <td>EST CrCl (CG)</td> <td>55 mL/min</td> <td>> 59</td> </tr> <tr> <td>GLUCOSE</td> <td>103 mg/dL</td> <td>70-99</td> </tr> <tr> <td>CALCIUM</td> <td>9.1 mg/dL</td> <td>8.5-10.1</td> </tr> <tr> <td>BLOOD UREA NITROGEN</td> <td>19 mg/dL</td> <td>7-20 </td> </tr> <tr> <td>CREATININE</td> <td>1.3 mg/ dL</td> <td>0.7-1.3</td> </tr> <tr> <td>SODIUM</ td> <td>139 mmol/L</td> <td>135-148</td> </tr> < tr> <td>CHLORIDE</td> <td>105 mmol/L</td> <td>98-110< /td> </tr> <tr> <td>CARBON DIOXIDE</td> <td>25 mmol/L</td> <td>21-32</td> </tr> <tr> <th colspan="10">Complete blood count (CBC) with automated white blood cell (WBC) differential - 01/04/17 09:40</th> </tr> <tr> <td>Blood leukocytes automated count (number/volume)</td> <td>6.3 10*3/uL</td> <td>4.3-11.0</td> </tr> <tr> <td>Blood erythrocytes automated count (number/volume)</td> <td>4.70 10*6/uL</td > <td>4.35-5.85</td> </tr> <tr> <td>Venous blood hemoglobin measurement (mass/volume)</td> <td>14.0 g/dL</td> <td>13.3-17.7</td> </tr> <tr> <td>Blood hematocrit (volume fraction)</td> <td>41 %</td> <td>40-54</td> </tr> <tr> <td>Automated erythrocyte mean corpuscular volume</ td> <td>87 [foz_us]</td> <td>80-99</td> </tr> < tr> <td>Automated erythrocyte mean corpuscular hemoglobin (mass per erythrocyte)</td> <td>30 pg</td> <td>25-34</td> </tr> <tr> <td>Automated erythrocyte mean corpuscular hemoglobin concentration measurement (mass/volume)</td> <td>34 g/dL</td> <td>32-36</td> </tr> <tr> <td>Automated erythrocyte distribution width ratio</td> <td>14.9 %</td> <td>10.0- 14.5</td> </tr> <tr> <td>Automated blood platelet count ( count/volume)</td> <td>201 10*3/uL</td> <td>130-400</td> </tr> <tr> <td>Automated blood platelet mean volume measurement</td> <td>10.1 [foz_us]</td> <td>7.4-10.4</td> </tr> <tr> <td>Automated blood neutrophils/100 leukocytes</ td> <td>61 %</td> <td>42-75</td> </tr> <tr> <td>Automated blood lymphocytes/100 leukocytes</td> <td>29 &# 37;</td> <td>12-44</td> </tr> <tr> <td>Blood monocytes/100 leukocytes</td> <td>7 %</td> <td>0-12</td> </tr> <tr> <td>Automated blood eosinophils/100 leukocytes </td> <td>3 %</td> <td>0-10</td> </tr> <tr> <td>Automated blood basophils/100 leukocytes</td> <td>0 % </td> <td>0-10</td> </tr> <tr> <td>Blood neutrophils automated count (number/volume)</td> <td>3.8 10*3</td> <td>1.8-7.8</td> </tr> <tr> <td>Blood lymphocytes automated count (number/volume)</td> <td>1.8 10*3</td> <td>1.0 -4.0</td> </tr> <tr> <td>Blood monocytes automated count (number/volume)</td> <td>0.5 10*3</td> <td>0.0-1.0</td> </tr> <tr> <td>Automated eosinophil count</td> <td> 0.2 10*3/uL</td> <td>0.0-0.3</td> </tr> <tr> <td >Automated blood basophil count (count/volume)</td> <td>0.0 10*3/uL</td > <td>0.0-0.1</td> </tr> <tr> <th colspan="10"> Comprehensive metabolic panel - 01/04/17 09:40</th> </tr> <tr> <td>Serum or plasma sodium measurement (moles/volume)</td> <td> 140 mmol/L</td> <td>135-145</td> </tr> <tr> <td> Serum or plasma potassium measurement (moles/volume)</td> <td>3.9 mmol/ L</td> <td>3.6-5.0</td> </tr> <tr> <td>Serum or plasma chloride measurement (moles/volume)</td> <td>107 mmol/L</td> <td>98-107</td> </tr> <tr> <td>Carbon dioxide</td > <td>23 mmol/L</td> <td>21-32</td> </tr> <tr> <td>Serum or plasma anion gap determination (moles/volume)</td> <td>10 mmol/L</td> <td>5-14</td> </tr> <tr> < td>Serum or plasma urea nitrogen measurement (mass/volume)</td> <td>18 mg/dL</td> <td>7-18</td> </tr> <tr> <td>Serum or plasma creatinine measurement (mass/volume)</td> <td>1.26 mg/dL</td > <td>0.60-1.30</td> </tr> <tr> <td>Serum or plasma urea nitrogen/creatinine mass ratio</td> <td>14 </td> < td>NRG</td> </tr> <tr> <td>Serum or plasma creatinine measurement with calculation of estimated glomerular filtration rate</td> <td>55 </td> <td>NRG</td> </tr> <tr> <td> Serum or plasma glucose measurement (mass/volume)</td> <td>100 mg/dL</ td> <td>70-105</td> </tr> <tr> <td>Serum or plasma calcium measurement (mass/volume)</td> <td>9.0 mg/dL</td> <td>8.5-10.1</td> </tr> <tr> <td>Serum or plasma total bilirubin measurement (mass/volume)</td> <td>0.8 mg/dL</td> <td>0.1-1.0</td> </tr> <tr> <td>Serum or plasma alkaline phosphatase measurement (enzymatic activity/volume)</td> <td> 82 U/L</td> <td>40-136</td> </tr> <tr> <td> Serum or plasma aspartate aminotransferase measurement (enzymatic activity/ volume)</td> <td>22 U/L</td> <td>5-34</td> </tr> <tr> <td>Serum or plasma alanine aminotransferase measurement ( enzymatic activity/volume)</td> <td>22 U/L</td> <td>0-55</td> </tr> <tr> <td>Serum or plasma protein measurement (mass /volume)</td> <td>6.9 g/dL</td> <td>6.4-8.2</td> </tr> <tr> <td>Serum or plasma albumin measurement (mass/volume)</td > <td>3.9 g/dL</td> <td>3.2-4.5</td> </tr> <tr> <th colspan="10">THYROID STIMULATING HORMONE - 01/04/17 09:40</th> </tr> <tr> <td>THYROID STIMULATING HORMONE</td> < td>1.80 u[iU]/mL</td> <td>0.35-4.94</td> </tr> <tr> <th colspan="10">Serum or plasma testosterone measurement (mass/volume) - 01/04/17 09:40</th> </tr> <tr> <td>Testosterone [mass or moles/volume] in serum or plasma</td> <td>196 %</td> <td> 241-827</td> </tr> <tr> <th colspan="10">AOO8065 - 08:05</th> </tr> <tr> <td>Serum or plasma urea nitrogen measurement (mass/volume)</td> <td>18 mg/dL</td> <td> 7-18</td> </tr> <tr> <td>Serum or plasma creatinine measurement (mass/volume)</td> <td>1.21 mg/dL</td> <td>0.60- 1.30</td> </tr> <tr> <td>Serum or plasma urea nitrogen/ creatinine mass ratio</td> <td>15 </td> <td>NRG</td> </ tr> <tr> <td>Serum or plasma creatinine measurement with calculation of estimated glomerular filtration rate</td> <td>58 </td> <td>NRG</td> </tr> </tbody> </table> </text> <entry> <organizer moodCode="EVN" classCode="BATTERY"> <templateId root= "2.16.840.1.259829.10.20.22.4.1" /> <id nullFlavor="NA" /> <code codeSystem="local" code="CBCD" displayName="CBC W/DIFF" /> <statusCode code ="completed" /> <component> <observation moodCode="EVN" classCode= "OBS"> <templateId root="216.840.1.773979.08.05.22.4.2" /> < id nullFlavor="NA" /> <code codeSystem="local" code="EO#" displayName= "EOSINOPHIL #" /> <statusCode code="completed" /> < effectiveTime value="" /> <value unit="k/cumm" xsi:type="PQ " value="0.2" /> <referenceRange> <observationRange> <text>0.1-0.5</text> </observationRange> </ referenceRange> </observation> </component> <component> <observation moodCode="EVN" classCode="OBS"> <templateId root= "16.840.1.237900.08.05.224.2" /> <id nullFlavor="NA" /> < code codeSystem="local" code="EO%" displayName="EOSINOPHIL %" /> <statusCode code="completed" /> <effectiveTime value="" /> <value unit="%" xsi:type="PQ" value="3" /> < referenceRange> <observationRange> <text>2-4</text> </observationRange> </referenceRange> </observation> </component> <component> <observation moodCode="EVN" classCode= "OBS"> <templateId root="12.02.840.1.756303.08.05.224.2" /> < id nullFlavor="NA" /> <code codeSystem="local" code="GR#" displayName= "GRANULOCYTE #" /> <statusCode code="completed" /> < effectiveTime value="" /> <value unit="k/cumm" xsi:type="PQ " value="3.4" /> <referenceRange> <observationRange> <text>2.0-9.0</text> </observationRange> </ referenceRange> </observation> </component> <component> <observation moodCode="EVN" classCode="OBS"> <templateId root= "216.840.1.976874.1022.4.2" /> <id nullFlavor="NA" /> < code codeSystem="local" code="GR%" displayName="GRANULOCYTE %" /> <statusCode code="completed" /> <effectiveTime value=" " /> <value unit="%" xsi:type="PQ" value="57" /> < referenceRange> <observationRange> <text>50-75</text> </observationRange> </referenceRange> </observation> </component> <component> <observation moodCode="EVN" classCode= "OBS"> <templateId root="2.840.1.769943.08.05.22.4.2" /> < id nullFlavor="NA" /> <code codeSystem="local" code="LY#" displayName= "LYMPHOCYTE #" /> <statusCode code="completed" /> < effectiveTime value="" /> <value unit="k/cumm" xsi:type="PQ " value="1.9" /> <referenceRange> <observationRange> <text>1.0-4.0</text> </observationRange> </ referenceRange> </observation> </component> <component> <observation moodCode="EVN" classCode="OBS"> <templateId root= "216.840.1.628720.22.4.2" /> <id nullFlavor="NA" /> < code codeSystem="local" code="LY%" displayName="LYMPHOCYTE %" /> <statusCode code="completed" /> <effectiveTime value="" /> <value unit="%" xsi:type="PQ" value="32" /> < interpretationCode codeSystem="local" code="*" /> <referenceRange> <observationRange> <text>20-30</text> </ observationRange> </referenceRange> </observation> </ component> <component> <observation moodCode="EVN" classCode="OBS"> <templateId root="216.840.1.073793.10..4.2" /> <id nullFlavor="NA" /> <code codeSystem="local" code="MCH" displayName= "MEAN CELL HGB" /> <statusCode code="completed" /> < effectiveTime value="[id number]" /> <value unit="pg" xsi:type="PQ" value="29.5" /> <referenceRange> <observationRange> <text>27.0-33.0</text> </observationRange> </ referenceRange> </observation> </component> <component> <observation moodCode="EVN" classCode="OBS"> <templateId root= "12.02.840.1.432753.10..4.2" /> <id nullFlavor="NA" /> < code codeSystem="local" code="MCHC" displayName="MEAN CELL HGB CONCENTRATION" / > <statusCode code="completed" /> <effectiveTime value= "[id number]" /> <value unit="g/dL" xsi:type="PQ" value="34.4" /> <referenceRange> <observationRange> <text>32.0- 37.0</text> </observationRange> </referenceRange> </ observation> </component> <component> <observation moodCode= "EVN" classCode="OBS"> <templateId root="216.840.1.176930.10.2022.4.2 " /> <id nullFlavor="NA" /> <code codeSystem="local" code="MCV " displayName="MEAN CELL VOLUME" /> <statusCode code="completed" /> <effectiveTime value="" /> <value unit="fl" xsi:type ="PQ" value="85.6" /> <referenceRange> <observationRange> <text>80.0-100.0</text> </observationRange> </ referenceRange> </observation> </component> <component> <observation moodCode="EVN" classCode="OBS"> <templateId root= "2.16.840.1.878827.10..4.2" /> <id nullFlavor="NA" /> < code codeSystem="local" code="MO#" displayName="MONOCYTE #" /> < statusCode code="completed" /> <effectiveTime value="" /> <value unit="k/cumm" xsi:type="PQ" value="0.5" /> < referenceRange> <observationRange> <text>0.1-1.0</text> </observationRange> </referenceRange> </observation > </component> <component> <observation moodCode="EVN" classCode="OBS"> <templateId root="2.16.840.1.340553.10...4.2" /> <id nullFlavor="NA" /> <code codeSystem="local" code="MO% " displayName="MONOCYTE %" /> <statusCode code="completed" /> <effectiveTime value="" /> <value unit="%" xsi: type="PQ" value="8" /> <interpretationCode codeSystem="local" code="*" /> <referenceRange> <observationRange> <text>4- 6</text> </observationRange> </referenceRange> </ observation> </component> <component> <observation moodCode= "EVN" classCode="OBS"> <templateId root="2.16.840.1.645984.10..22.4.2 " /> <id nullFlavor="NA" /> <code codeSystem="local" code="RBC " displayName="RED BLOOD CELL" /> <statusCode code="completed" /> <effectiveTime value="" /> <value unit="m/cumm" xsi: type="PQ" value="4.99" /> <referenceRange> <observationRange > <text>4.00-6.00</text> </observationRange> </ referenceRange> </observation> </component> <component> <observation moodCode="EVN" classCode="OBS"> <templateId root= "216.840.1.246670.08.05.22.4.2" /> <id nullFlavor="NA" /> < code codeSystem="local" code="RDW" displayName="RED CELL DISTRIBUTION WIDTH" /> <statusCode code="completed" /> <effectiveTime value= "" /> <value unit="%" xsi:type="PQ" value="14.4" /> <referenceRange> <observationRange> <text>11.0- 15.6</text> </observationRange> </referenceRange> </ observation> </component> <component> <observation moodCode= "EVN" classCode="OBS"> <templateId root="2.16.840.1.185793.10..4.2 " /> <id nullFlavor="NA" /> <code codeSystem="local" code="WBC " displayName="WHITE BLOOD CELL" /> <statusCode code="completed" /> <effectiveTime value="" /> <value unit="k/cumm" xsi: type="PQ" value="6.0" /> <referenceRange> <observationRange > <text>5.0-10.0</text> </observationRange> </ referenceRange> </observation> </component> <component> <observation moodCode="EVN" classCode="OBS"> <templateId root= "216.840.1.924695.10.20.22.4.2" /> <id nullFlavor="NA" /> < code codeSystem="local" code="HGBT" displayName="HEMOGLOBIN" /> < statusCode code="completed" /> <effectiveTime value="" /> <value unit="gm/dL" xsi:type="PQ" value="14.7" /> < referenceRange> <observationRange> <text>14.0-18.0</text > </observationRange> </referenceRange> </observation > </component> <component> <observation moodCode="EVN" classCode="OBS"> <templateId root="840.1.193609.10..4.2" /> <id nullFlavor="NA" /> <code codeSystem="local" code="HCTT" displayName="HEMATOCRIT" /> <statusCode code="completed" /> < effectiveTime value="[id number]" /> <value unit="%" xsi:type="PQ " value="42.7" /> <referenceRange> <observationRange> <text>40.0-54.0</text> </observationRange> </ referenceRange> </observation> </component> <component> <observation moodCode="EVN" classCode="OBS"> <templateId root= "12.02.840.1.609310.10.20.22.4.2" /> <id nullFlavor="NA" /> < code codeSystem="local" code="PLT" displayName="PLATELET COUNT" /> < statusCode code="completed" /> <effectiveTime value="617134775050" /> <value unit="k/cumm" xsi:type="PQ" value="217" /> < referenceRange> <observationRange> <text>150-450</text> </observationRange> </referenceRange> </observation > </component> </organizer> </entry> <entry> <organizer moodCode= "EVN" classCode="BATTERY"> <templateId root="216.840.1.811849.10..22.4.1 " /> <id nullFlavor="NA" /> <code codeSystem="local" code="PLAVIX" displayName="PLT FUNCTION, P2Y12 (PLAVIX)" /> <statusCode code="completed" /> <component> <observation moodCode="EVN" classCode="OBS"> <templateId root="216.840.1.410477.10...4.2" /> <id nullFlavor= "NA" /> <code codeSystem="local" code="PLAVPLT" displayName="PLATELET COUNT" /> <statusCode code="completed" /> <effectiveTime value ="417079553703" /> <value unit="k/cumm" xsi:type="PQ" value="217" /> <referenceRange> <observationRange> <text>150- 450</text> </observationRange> </referenceRange> </ observation> </component> <component> <observation moodCode= "EVN" classCode="OBS"> <templateId root="12.02.840.1.635700.10...4.2 " /> <id nullFlavor="NA" /> <code codeSystem="local" code= "PLTFUN" displayName="PLT FUNCTION P2Y12" /> <statusCode code= "completed" /> <effectiveTime value="495872093888" /> <value unit="PRU" xsi:type="PQ" value="172" /> <interpretationCode codeSystem= "local" code="*" /> <referenceRange> <observationRange> <text>194-418</text> </observationRange> </ referenceRange> </observation> </component> </organizer> </entry > <entry> <organizer moodCode="EVN" classCode="BATTERY"> <templateId root="16.840.1.236847.10..22.4.1" /> <id nullFlavor="NA" /> <code codeSystem="local" code="METAB" displayName="METABOLIC PANEL, BASIC" /> < statusCode code="completed" /> <component> <observation moodCode= "EVN" classCode="OBS"> <templateId root="12.02.840.1.862294.08.05.22.4.2 " /> <id nullFlavor="NA" /> <code codeSystem="local" code="K" displayName="POTASSIUM" /> <statusCode code="completed" /> < effectiveTime value="991496843312" /> <value unit="mmol/L" xsi:type="PQ " value="3.9" /> <referenceRange> <observationRange> <text>3.5-5.3</text> </observationRange> </ referenceRange> </observation> </component> <component> <observation moodCode="EVN" classCode="OBS"> <templateId root= "12.02.840.1.609736.10..4.2" /> <id nullFlavor="NA" /> < code codeSystem="local" code="eGFR" displayName="EST GFR (MDRD)" /> < statusCode code="completed" /> <effectiveTime value="" /> <value unit="mL/min" xsi:type="PQ" value="59" /> < interpretationCode codeSystem="local" code="*" /> <referenceRange> <observationRange> <text>> 59</text> </ observationRange> </referenceRange> </observation> </ component> <component> <observation moodCode="EVN" classCode="OBS"> <templateId root="12.02.840.1.113804.1022.4.2" /> <id nullFlavor="NA" /> <code codeSystem="local" code="GAP" displayName= "ANION GAP" /> <statusCode code="completed" /> <effectiveTime value="" /> <value unit="mmol/L" xsi:type="PQ" value="13" / > <referenceRange> <observationRange> <text>5- 15</text> </observationRange> </referenceRange> </ observation> </component> <component> <observation moodCode= "EVN" classCode="OBS"> <templateId root="840.1.884888.08.05.22.4.2 " /> <id nullFlavor="NA" /> <code codeSystem="local" code="GLU " displayName="GLUCOSE" /> <statusCode code="completed" /> < effectiveTime value="" /> <value unit="mg/dL" xsi:type="PQ " value="92" /> <referenceRange> <observationRange> <text>70-99</text> </observationRange> </ referenceRange> </observation> </component> <component> <observation moodCode="EVN" classCode="OBS"> <templateId root= "12.02.840.1.309749.10.22.4.2" /> <id nullFlavor="NA" /> < code codeSystem="local" code="CA" displayName="CALCIUM" /> <statusCode code="completed" /> <effectiveTime value="" /> < value unit="mg/dL" xsi:type="PQ" value="9.0" /> <referenceRange> <observationRange> <text>8.5-10.1</text> </ observationRange> </referenceRange> </observation> </ component> <component> <observation moodCode="EVN" classCode="OBS"> <templateId root="216.840.1.887375.10..22.4.2" /> <id nullFlavor="NA" /> <code codeSystem="local" code="BUN" displayName= "BLOOD UREA NITROGEN" /> <statusCode code="completed" /> < effectiveTime value="" /> <value unit="mg/dL" xsi:type="PQ " value="15" /> <referenceRange> <observationRange> <text>7-20</text> </observationRange> </referenceRange > </observation> </component> <component> <observation moodCode="EVN" classCode="OBS"> <templateId root= "16.840.1.607847.10..22.4.2" /> <id nullFlavor="NA" /> < code codeSystem="local" code="CREAT" displayName="CREATININE" /> < statusCode code="completed" /> <effectiveTime value="408994810207" /> <value unit="mg/dL" xsi:type="PQ" value="1.2" /> < referenceRange> <observationRange> <text>0.7-1.3</text> </observationRange> </referenceRange> </observation > </component> <component> <observation moodCode="EVN" classCode="OBS"> <templateId root="216.840.1.091815.08.05.22.4.2" /> <id nullFlavor="NA" /> <code codeSystem="local" code="NA" displayName="SODIUM" /> <statusCode code="completed" /> < effectiveTime value="424961045644" /> <value unit="mmol/L" xsi:type="PQ " value="140" /> <referenceRange> <observationRange> <text>135-148</text> </observationRange> </ referenceRange> </observation> </component> <component> <observation moodCode="EVN" classCode="OBS"> <templateId root= "2.16.840.1.666081.10..22.4.2" /> <id nullFlavor="NA" /> < code codeSystem="local" code="CL" displayName="CHLORIDE" /> < statusCode code="completed" /> <effectiveTime value="" /> <value unit="mmol/L" xsi:type="PQ" value="105" /> < referenceRange> <observationRange> <text>98-110</text> </observationRange> </referenceRange> </observation> </component> <component> <observation moodCode="EVN" classCode ="OBS"> <templateId root="2.16.840.1.714144.10..22.4.2" /> < id nullFlavor="NA" /> <code codeSystem="local" code="CO2" displayName= "CARBON DIOXIDE" /> <statusCode code="completed" /> < effectiveTime value="622562945548" /> <value unit="mmol/L" xsi:type="PQ " value="22" /> <referenceRange> <observationRange> <text>21-32</text> </observationRange> </ referenceRange> </observation> </component> </organizer> </entry > <entry> <organizer moodCode="EVN" classCode="BATTERY"> <templateId root="216.840.1.508828.10..22.4.1" /> <id nullFlavor="NA" /> <code codeSystem="local" code="HGB" displayName="HEMOGLOBIN" /> <statusCode code= "completed" /> <component> <observation moodCode="EVN" classCode= "OBS"> <templateId root="16.840.1.613381.08.05.22.4.2" /> < id nullFlavor="NA" /> <code codeSystem="local" code="MCV" displayName= "MEAN CELL VOLUME" /> <statusCode code="completed" /> < effectiveTime value="" /> <value unit="fl" xsi:type="PQ" value="86.8" /> <referenceRange> <observationRange> <text>80.0-100.0</text> </observationRange> </ referenceRange> </observation> </component> <component> <observation moodCode="EVN" classCode="OBS"> <templateId root= "16.840.1.786249.08.05..4.2" /> <id nullFlavor="NA" /> < code codeSystem="local" code="HGBT" displayName="HEMOGLOBIN" /> < statusCode code="completed" /> <effectiveTime value="" /> <value unit="gm/dL" xsi:type="PQ" value="12.4" /> < interpretationCode codeSystem="local" code="*" /> <referenceRange> <observationRange> <text>14.0-18.0</text> </ observationRange> </referenceRange> </observation> </ component> </organizer> </entry> <entry> <organizer moodCode="EVN" classCode="BATTERY"> <templateId root="216.840.1.232963.10..4.1" /> <id nullFlavor="NA" /> <code codeSystem="local" code="HCT" displayName ="HEMATOCRIT" /> <statusCode code="completed" /> <component> < observation moodCode="EVN" classCode="OBS"> <templateId root= "12.02.840.1.881230.08.05.22.4.2" /> <id nullFlavor="NA" /> < code codeSystem="local" code="MCV" displayName="MEAN CELL VOLUME" /> < statusCode code="completed" /> <effectiveTime value="" /> <value unit="fl" xsi:type="PQ" value="87.0" /> <referenceRange > <observationRange> <text>80.0-100.0</text> </observationRange> </referenceRange> </observation> </ component> <component> <observation moodCode="EVN" classCode="OBS"> <templateId root="216.840.1.732733.08.05.22.4.2" /> <id nullFlavor="NA" /> <code codeSystem="local" code="HCTT" displayName= "HEMATOCRIT" /> <statusCode code="completed" /> < effectiveTime value="" /> <value unit="%" xsi:type="PQ " value="36.2" /> <interpretationCode codeSystem="local" code="*" /> <referenceRange> <observationRange> <text>40.0- 54.0</text> </observationRange> </referenceRange> </ observation> </component> </organizer> </entry> <entry> <organizer moodCode="EVN" classCode="BATTERY"> <templateId root= "216.840.1.735905...22.4.1" /> <id nullFlavor="NA" /> <code codeSystem="local" code="UANRC" displayName="URINALYSIS, NO REFLEX CULTURE" /> <statusCode code="completed" /> <component> <observation moodCode="EVN" classCode="OBS"> <templateId root= "12.02.840.1.578456.08.05.22.4.2" /> <id nullFlavor="NA" /> < code codeSystem="local" code="LEUESU" displayName="UA LEUKOCYTE ESTERASE DIPSTICK" /> <statusCode code="completed" /> <effectiveTime value="" /> <value unit="" xsi:type="PQ" value="TRACE" /> <referenceRange> <observationRange> <text> NEGATIVE</text> </observationRange> </referenceRange> </observation> </component> <component> <observation moodCode ="EVN" classCode="OBS"> <templateId root= "840.1.318948.08.05.224.2" /> <id nullFlavor="NA" /> < code codeSystem="local" code="NITRIU" displayName="UA NITRITE DIPSTICK" /> <statusCode code="completed" /> <effectiveTime value=" " /> <value unit="" xsi:type="PQ" value="NEGATIVE" /> < referenceRange> <observationRange> <text>NEGATIVE</text > </observationRange> </referenceRange> </observation > </component> <component> <observation moodCode="EVN" classCode="OBS"> <templateId root="12.02.840.1.427319.08.05.22.4.2" /> <id nullFlavor="NA" /> <code codeSystem="local" code="PROTEIU " displayName="UA PROTEIN DIPSTICK" /> <statusCode code="completed" /> <effectiveTime value="" /> <value unit="" xsi: type="PQ" value="TRACE" /> <referenceRange> < observationRange> <text>NEGATIVE</text> </ observationRange> </referenceRange> </observation> </ component> <component> <observation moodCode="EVN" classCode="OBS"> <templateId root="16.840.1.424051.08.05.22.4.2" /> <id nullFlavor="NA" /> <code codeSystem="local" code="DGLUU" displayName= "UA GLUCOSE DIPSTICK" /> <statusCode code="completed" /> < effectiveTime value="" /> <value unit="" xsi:type="PQ" value="NEGATIVE" /> <referenceRange> <observationRange> <text>NEGATIVE</text> </observationRange> </ referenceRange> </observation> </component> <component> <observation moodCode="EVN" classCode="OBS"> <templateId root= "16.840.1.416885.08.05.22.4.2" /> <id nullFlavor="NA" /> < code codeSystem="local" code="KETONU" displayName="UA KETONE DIPSTICK" /> <statusCode code="completed" /> <effectiveTime value=" " /> <value unit="" xsi:type="PQ" value="1+" /> < interpretationCode codeSystem="local" code="*" /> <referenceRange> <observationRange> <text>NEGATIVE</text> </ observationRange> </referenceRange> </observation> </ component> <component> <observation moodCode="EVN" classCode="OBS"> <templateId root="12.02.840.1.045454.22.4.2" /> <id nullFlavor="NA" /> <code codeSystem="local" code="UROBILU" displayName= "UA UROBILINOGEN DIPSTICK" /> <statusCode code="completed" /> <effectiveTime value="" /> <value unit="" xsi:type="PQ" value="NORMAL" /> <referenceRange> <observationRange> <text>NORMAL</text> </observationRange> </ referenceRange> </observation> </component> <component> <observation moodCode="EVN" classCode="OBS"> <templateId root= "216.840.1.587182.08.05.22.4.2" /> <id nullFlavor="NA" /> < code codeSystem="local" code="BILU" displayName="UA BILIRUBIN DIPSTICK" /> <statusCode code="completed" /> <effectiveTime value=" " /> <value unit="" xsi:type="PQ" value="NEGATIVE" /> < referenceRange> <observationRange> <text>NEGATIVE</text > </observationRange> </referenceRange> </observation > </component> <component> <observation moodCode="EVN" classCode="OBS"> <templateId root="216.840.1.139822.08.05.22.4.2" /> <id nullFlavor="NA" /> <code codeSystem="local" code="WILD" displayName="UA BLOOD DIPSTICK" /> <statusCode code="completed" /> <effectiveTime value="" /> <value unit="" xsi:type= "PQ" value="4+" /> <interpretationCode codeSystem="local" code="*" /> <referenceRange> <observationRange> <text> NEGATIVE</text> </observationRange> </referenceRange> </observation> </component> <component> <observation moodCode ="EVN" classCode="OBS"> <templateId root= "16.840.1.184018.08.05.22.4.2" /> <id nullFlavor="NA" /> < code codeSystem="local" code="SPGRU" displayName="UA SPECIFIC GRAVITY" /> <statusCode code="completed" /> <effectiveTime value="651631669954 " /> <value unit="" xsi:type="PQ" value="1.015" /> < referenceRange> <observationRange> <text>1.015-1.025</ text> </observationRange> </referenceRange> </ observation> </component> <component> <observation moodCode= "EVN" classCode="OBS"> <templateId root="[id number] " /> <id nullFlavor="NA" /> <code codeSystem="local" code="IRVIN " displayName="UR PH" /> <statusCode code="completed" /> < effectiveTime value="" /> <value unit="" xsi:type="PQ" value="5.0" /> <referenceRange> <observationRange> <text>5.0-7.0</text> </observationRange> </ referenceRange> </observation> </component> </organizer> </entry > <entry> <organizer moodCode="EVN" classCode="BATTERY"> <templateId root="[id number]" /> <id nullFlavor="NA" /> <code codeSystem="local" code="UAMICRO" displayName="UA MICROSCOPIC" /> < statusCode code="completed" /> <component> <observation moodCode= "EVN" classCode="OBS"> <templateId root="12.02.840.1.712356.10..22.4.2 " /> <id nullFlavor="NA" /> <code codeSystem="local" code= "BACU" displayName="UA BACTERIA" /> <statusCode code="completed" /> <effectiveTime value="" /> <value unit="" xsi:type= "PQ" value="1+" /> <interpretationCode codeSystem="local" code="*" /> <referenceRange> <observationRange> <text> NEGATIVE</text> </observationRange> </referenceRange> </observation> </component> <component> <observation moodCode ="EVN" classCode="OBS"> <templateId root= "16.840.1.323941.10..4.2" /> <id nullFlavor="NA" /> < code codeSystem="local" code="MUCUSU" displayName="UA MUCUS" /> < statusCode code="completed" /> <effectiveTime value="" /> <value unit="" xsi:type="PQ" value="1+" /> <referenceRange> <observationRange> <text>NEG TO 1+</text> </ observationRange> </referenceRange> </observation> </ component> <component> <observation moodCode="EVN" classCode="OBS"> <templateId root="16.840.1.283065.10...4.2" /> <id nullFlavor="NA" /> <code codeSystem="local" code="RBCU" displayName=" UA RBC" /> <statusCode code="completed" /> <effectiveTime value="" /> <value unit="rbc/hpf" xsi:type="PQ" value="50- 100" /> <interpretationCode codeSystem="local" code="*" /> < referenceRange> <observationRange> <text>0 - 3</text> </observationRange> </referenceRange> </observation> </component> <component> <observation moodCode="EVN" classCode= "OBS"> <templateId root="216.840.1.204585.10..22.4.2" /> < id nullFlavor="NA" /> <code codeSystem="local" code="UAVOL" displayName ="UA VOLUME FOR EXAM" /> <statusCode code="completed" /> < effectiveTime value="[id number]" /> <value unit="mL" xsi:type="PQ" value="12.0" /> <referenceRange> <observationRange> <text>(12mL STD)</text> </observationRange> </ referenceRange> </observation> </component> <component> <observation moodCode="EVN" classCode="OBS"> <templateId root= "12.02.840.1.250540.10..4.2" /> <id nullFlavor="NA" /> < code codeSystem="local" code="WBCU" displayName="UA WBC" /> < statusCode code="completed" /> <effectiveTime value="224682208106" /> <value unit="wbc/hpf" xsi:type="PQ" value="2-5" /> < referenceRange> <observationRange> <text>0 - 5</text> </observationRange> </referenceRange> </observation> </component> </organizer> </entry> <entry> <organizer moodCode="EVN " classCode="BATTERY"> <templateId root="216.840.1.372911.10...4.1" / > <id nullFlavor="NA" /> <code codeSystem="local" code="CBC" displayName="CBC" /> <statusCode code="completed" /> <component> <observation moodCode="EVN" classCode="OBS"> <templateId root= "16.840.1.831752.10.2022.4.2" /> <id nullFlavor="NA" /> < code codeSystem="local" code="MCH" displayName="MEAN CELL HGB" /> < statusCode code="completed" /> <effectiveTime value="" /> <value unit="pg" xsi:type="PQ" value="29.3" /> <referenceRange > <observationRange> <text>27.0-33.0</text> < /observationRange> </referenceRange> </observation> </ component> <component> <observation moodCode="EVN" classCode="OBS"> <templateId root="12.02.840.1.417940..22.4.2" /> <id nullFlavor="NA" /> <code codeSystem="local" code="MCHC" displayName= "MEAN CELL HGB CONCENTRATION" /> <statusCode code="completed" /> <effectiveTime value="" /> <value unit="g/dL" xsi:type= "PQ" value="32.9" /> <referenceRange> <observationRange> <text>32.0-37.0</text> </observationRange> </ referenceRange> </observation> </component> <component> <observation moodCode="EVN" classCode="OBS"> <templateId root= "12.02.840.1.566583.10.20.22.4.2" /> <id nullFlavor="NA" /> < code codeSystem="local" code="MCV" displayName="MEAN CELL VOLUME" /> < statusCode code="completed" /> <effectiveTime value="" /> <value unit="fl" xsi:type="PQ" value="89.2" /> <referenceRange > <observationRange> <text>80.0-100.0</text> </observationRange> </referenceRange> </observation> </ component> <component> <observation moodCode="EVN" classCode="OBS"> <templateId root="216.840.1.500579.10.20.22.4.2" /> <id nullFlavor="NA" /> <code codeSystem="local" code="RBC" displayName=" RED BLOOD CELL" /> <statusCode code="completed" /> < effectiveTime value="[id number]" /> <value unit="m/cumm" xsi:type="PQ " value="3.34" /> <interpretationCode codeSystem="local" code="*" /> <referenceRange> <observationRange> <text>4.00- 6.00</text> </observationRange> </referenceRange> </ observation> </component> <component> <observation moodCode= "EVN" classCode="OBS"> <templateId root="12.02.840.1.980830.10..4.2 " /> <id nullFlavor="NA" /> <code codeSystem="local" code="RDW " displayName="RED CELL DISTRIBUTION WIDTH" /> <statusCode code= "completed" /> <effectiveTime value="927429103181" /> <value unit="%" xsi:type="PQ" value="14.4" /> <referenceRange> <observationRange> <text>11.0-15.6</text> </ observationRange> </referenceRange> </observation> </ component> <component> <observation moodCode="EVN" classCode="OBS"> <templateId root="16.840.1.178565.10.20.22.4.2" /> <id nullFlavor="NA" /> <code codeSystem="local" code="WBC" displayName= "WHITE BLOOD CELL" /> <statusCode code="completed" /> < effectiveTime value="" /> <value unit="k/cumm" xsi:type="PQ " value="9.9" /> <referenceRange> <observationRange> <text>5.0-10.0</text> </observationRange> </ referenceRange> </observation> </component> <component> <observation moodCode="EVN" classCode="OBS"> <templateId root= "216.840.1.462628.10.20.22.4.2" /> <id nullFlavor="NA" /> < code codeSystem="local" code="HGBT" displayName="HEMOGLOBIN" /> < statusCode code="completed" /> <effectiveTime value="" /> <value unit="gm/dL" xsi:type="PQ" value="9.8" /> < interpretationCode codeSystem="local" code="*" /> <referenceRange> <observationRange> <text>14.0-18.0</text> </ observationRange> </referenceRange> </observation> </ component> <component> <observation moodCode="EVN" classCode="OBS"> <templateId root="216.840.1.814847.10.20.22.4.2" /> <id nullFlavor="NA" /> <code codeSystem="local" code="HCTT" displayName= "HEMATOCRIT" /> <statusCode code="completed" /> < effectiveTime value="" /> <value unit="%" xsi:type="PQ " value="29.8" /> <interpretationCode codeSystem="local" code="*" /> <referenceRange> <observationRange> <text>40.0- 54.0</text> </observationRange> </referenceRange> </ observation> </component> <component> <observation moodCode= "EVN" classCode="OBS"> <templateId root="16.840.1.465677.10..22.4.2 " /> <id nullFlavor="NA" /> <code codeSystem="local" code="PLT " displayName="PLATELET COUNT" /> <statusCode code="completed" /> <effectiveTime value="399781551461" /> <value unit="k/cumm" xsi: type="PQ" value="179" /> <referenceRange> <observationRange > <text>150-450</text> </observationRange> </ referenceRange> </observation> </component> </organizer> </entry > <entry> <organizer moodCode="EVN" classCode="BATTERY"> <templateId root="12.02.840.1.230783.10..22.4.1" /> <id nullFlavor="NA" /> <code codeSystem="local" code="METAB" displayName="METABOLIC PANEL, BASIC" /> < statusCode code="completed" /> <component> <observation moodCode= "EVN" classCode="OBS"> <templateId root="16.840.1.081695.10..22.4.2 " /> <id nullFlavor="NA" /> <code codeSystem="local" code="K" displayName="POTASSIUM" /> <statusCode code="completed" /> < effectiveTime value="865389095550" /> <value unit="mmol/L" xsi:type="PQ " value="4.3" /> <referenceRange> <observationRange> <text>3.5-5.3</text> </observationRange> </ referenceRange> </observation> </component> <component> <observation moodCode="EVN" classCode="OBS"> <templateId root= "840.1.809815.10..22.4.2" /> <id nullFlavor="NA" /> < code codeSystem="local" code="eGFR" displayName="EST GFR (MDRD)" /> < statusCode code="completed" /> <effectiveTime value="" /> <value unit="mL/min" xsi:type="PQ" value="59" /> < interpretationCode codeSystem="local" code="*" /> <referenceRange> <observationRange> <text>> 59</text> </ observationRange> </referenceRange> </observation> </ component> <component> <observation moodCode="EVN" classCode="OBS"> <templateId root="16.840.1.682658.10..22.4.2" /> <id nullFlavor="NA" /> <code codeSystem="local" code="GAP" displayName= "ANION GAP" /> <statusCode code="completed" /> <effectiveTime value="" /> <value unit="mmol/L" xsi:type="PQ" value="12" / > <referenceRange> <observationRange> <text>5- 15</text> </observationRange> </referenceRange> </ observation> </component> <component> <observation moodCode= "EVN" classCode="OBS"> <templateId root="16.840.1.891689.10..22.4.2 " /> <id nullFlavor="NA" /> <code codeSystem="local" code= "eCrCl" displayName="EST CrCl (CG)" /> <statusCode code="completed" /> <effectiveTime value="" /> <value unit="mL/min" xsi:type="PQ" value="> 60" /> <referenceRange> < observationRange> <text>> 59</text> </ observationRange> </referenceRange> </observation> </ component> <component> <observation moodCode="EVN" classCode="OBS"> <templateId root="12.02.840.1.666582.10.20.22.4.2" /> <id nullFlavor="NA" /> <code codeSystem="local" code="GLU" displayName= "GLUCOSE" /> <statusCode code="completed" /> <effectiveTime value="" /> <value unit="mg/dL" xsi:type="PQ" value="114" / > <interpretationCode codeSystem="local" code="*" /> < referenceRange> <observationRange> <text>70-99</text> </observationRange> </referenceRange> </observation> </component> <component> <observation moodCode="EVN" classCode= "OBS"> <templateId root="12.02.840.1.281102.10.22.4.2" /> < id nullFlavor="NA" /> <code codeSystem="local" code="CA" displayName= "CALCIUM" /> <statusCode code="completed" /> <effectiveTime value="387900123930" /> <value unit="mg/dL" xsi:type="PQ" value="8.2" / > <interpretationCode codeSystem="local" code="*" /> < referenceRange> <observationRange> <text>8.5-10.1</text > </observationRange> </referenceRange> </observation > </component> <component> <observation moodCode="EVN" classCode="OBS"> <templateId root="12.02.840.1.940059.10.20.22.4.2" /> <id nullFlavor="NA" /> <code codeSystem="local" code="BUN" displayName="BLOOD UREA NITROGEN" /> <statusCode code="completed" /> <effectiveTime value="" /> <value unit="mg/dL" xsi: type="PQ" value="17" /> <referenceRange> <observationRange> <text>7-20</text> </observationRange> </ referenceRange> </observation> </component> <component> <observation moodCode="EVN" classCode="OBS"> <templateId root= "16.840.1.270861.10..22.4.2" /> <id nullFlavor="NA" /> < code codeSystem="local" code="CREAT" displayName="CREATININE" /> < statusCode code="completed" /> <effectiveTime value="549289887632" /> <value unit="mg/dL" xsi:type="PQ" value="1.2" /> < referenceRange> <observationRange> <text>0.7-1.3</text> </observationRange> </referenceRange> </observation > </component> <component> <observation moodCode="EVN" classCode="OBS"> <templateId root="12.02.840.1.531765....4.2" /> <id nullFlavor="NA" /> <code codeSystem="local" code="NA" displayName="SODIUM" /> <statusCode code="completed" /> < effectiveTime value="124799789819" /> <value unit="mmol/L" xsi:type="PQ " value="141" /> <referenceRange> <observationRange> <text>135-148</text> </observationRange> </ referenceRange> </observation> </component> <component> <observation moodCode="EVN" classCode="OBS"> <templateId root= "12.02.840.1.314533....4.2" /> <id nullFlavor="NA" /> < code codeSystem="local" code="CL" displayName="CHLORIDE" /> < statusCode code="completed" /> <effectiveTime value="" /> <value unit="mmol/L" xsi:type="PQ" value="106" /> < referenceRange> <observationRange> <text>98-110</text> </observationRange> </referenceRange> </observation> </component> <component> <observation moodCode="EVN" classCode ="OBS"> <templateId root="16.840.1.915788.08.05.22.4.2" /> < id nullFlavor="NA" /> <code codeSystem="local" code="CO2" displayName= "CARBON DIOXIDE" /> <statusCode code="completed" /> < effectiveTime value="" /> <value unit="mmol/L" xsi:type="PQ " value="23" /> <referenceRange> <observationRange> <text>21-32</text> </observationRange> </ referenceRange> </observation> </component> </organizer> </entry > <entry> <organizer moodCode="EVN" classCode="BATTERY"> <templateId root="16.840.1.396466.08.05.22.4.1" /> <id nullFlavor="NA" /> <code codeSystem="local" code="CBC" displayName="CBC" /> <statusCode code= "completed" /> <component> <observation moodCode="EVN" classCode= "OBS"> <templateId root="12.02.840.1.891147.08.05.22.4.2" /> < id nullFlavor="NA" /> <code codeSystem="local" code="MCH" displayName= "MEAN CELL HGB" /> <statusCode code="completed" /> < effectiveTime value="717584165858" /> <value unit="pg" xsi:type="PQ" value="29.8" /> <referenceRange> <observationRange> <text>27.0-33.0</text> </observationRange> </ referenceRange> </observation> </component> <component> <observation moodCode="EVN" classCode="OBS"> <templateId root= "216.840.1.824802.10..4.2" /> <id nullFlavor="NA" /> < code codeSystem="local" code="MCHC" displayName="MEAN CELL HGB CONCENTRATION" / > <statusCode code="completed" /> <effectiveTime value= "816622004356" /> <value unit="g/dL" xsi:type="PQ" value="33.3" /> <referenceRange> <observationRange> <text>32.0- 37.0</text> </observationRange> </referenceRange> </ observation> </component> <component> <observation moodCode= "EVN" classCode="OBS"> <templateId root="12.02.840.1.786115.10...4.2 " /> <id nullFlavor="NA" /> <code codeSystem="local" code="MCV " displayName="MEAN CELL VOLUME" /> <statusCode code="completed" /> <effectiveTime value="725911868558" /> <value unit="fl" xsi:type ="PQ" value="89.3" /> <referenceRange> <observationRange> <text>80.0-100.0</text> </observationRange> </ referenceRange> </observation> </component> <component> <observation moodCode="EVN" classCode="OBS"> <templateId root= "16.840.1.130592.10..22.4.2" /> <id nullFlavor="NA" /> < code codeSystem="local" code="RBC" displayName="RED BLOOD CELL" /> < statusCode code="completed" /> <effectiveTime value="" /> <value unit="m/cumm" xsi:type="PQ" value="3.19" /> < interpretationCode codeSystem="local" code="*" /> <referenceRange> <observationRange> <text>4.00-6.00</text> </ observationRange> </referenceRange> </observation> </ component> <component> <observation moodCode="EVN" classCode="OBS"> <templateId root="216.840.1.472437.08.05.22.4.2" /> <id nullFlavor="NA" /> <code codeSystem="local" code="RDW" displayName=" RED CELL DISTRIBUTION WIDTH" /> <statusCode code="completed" /> <effectiveTime value="" /> <value unit="%" xsi:type= "PQ" value="14.3" /> <referenceRange> <observationRange> <text>11.0-15.6</text> </observationRange> </ referenceRange> </observation> </component> <component> <observation moodCode="EVN" classCode="OBS"> <templateId root= "216.840.1.590299.08.05.22.4.2" /> <id nullFlavor="NA" /> < code codeSystem="local" code="WBC" displayName="WHITE BLOOD CELL" /> < statusCode code="completed" /> <effectiveTime value="332138015706" /> <value unit="k/cumm" xsi:type="PQ" value="11.3" /> < interpretationCode codeSystem="local" code="*" /> <referenceRange> <observationRange> <text>5.0-10.0</text> </ observationRange> </referenceRange> </observation> </ component> <component> <observation moodCode="EVN" classCode="OBS"> <templateId root="12.02.840.1.897487.10.20.22.4.2" /> <id nullFlavor="NA" /> <code codeSystem="local" code="HGBT" displayName= "HEMOGLOBIN" /> <statusCode code="completed" /> < effectiveTime value="893590075914" /> <value unit="gm/dL" xsi:type="PQ " value="9.5" /> <interpretationCode codeSystem="local" code="*" /> <referenceRange> <observationRange> <text>14.0- 18.0</text> </observationRange> </referenceRange> </ observation> </component> <component> <observation moodCode= "EVN" classCode="OBS"> <templateId root="12.02.840.1.574379.10..22.4.2 " /> <id nullFlavor="NA" /> <code codeSystem="local" code= "HCTT" displayName="HEMATOCRIT" /> <statusCode code="completed" /> <effectiveTime value="298733285729" /> <value unit="%" xsi: type="PQ" value="28.5" /> <interpretationCode codeSystem="local" code= "*" /> <referenceRange> <observationRange> < text>40.0-54.0</text> </observationRange> </referenceRange> </observation> </component> <component> <observation moodCode="EVN" classCode="OBS"> <templateId root= "12.02.840.1.843010.10.20.22.4.2" /> <id nullFlavor="NA" /> < code codeSystem="local" code="PLT" displayName="PLATELET COUNT" /> < statusCode code="completed" /> <effectiveTime value="282600588869" /> <value unit="k/cumm" xsi:type="PQ" value="176" /> < referenceRange> <observationRange> <text>150-450</text> </observationRange> </referenceRange> </observation > </component> </organizer> </entry> <entry> <organizer moodCode= "EVN" classCode="BATTERY"> <templateId root="16.840.1.576118.10..22.4.1 " /> <id nullFlavor="NA" /> <code codeSystem="local" code="ABG" displayName="ARTERIAL BLOOD GAS" /> <statusCode code="completed" /> < component> <observation moodCode="EVN" classCode="OBS"> < templateId root="12.02.840.1.077404.10...4.2" /> <id nullFlavor="NA " /> <code codeSystem="local" code="ABGCOM" displayName="COMMENT" /> <statusCode code="completed" /> <effectiveTime value= "780088578466" /> <value unit="" xsi:type="PQ" value="2L NC" /> <referenceRange> <observationRange> <text /> </observationRange> </referenceRange> </observation> </ component> <component> <observation moodCode="EVN" classCode="OBS"> <templateId root="12.02.840.1.420023.10...4.2" /> <id nullFlavor="NA" /> <code codeSystem="local" code="AMILCAR" displayName=" ABG BASE EXCESS" /> <statusCode code="completed" /> < effectiveTime value="867259009614" /> <value unit="meq/L" xsi:type="PQ " value="-2.8" /> <referenceRange> <observationRange> <text>-3.0-3.0</text> </observationRange> </ referenceRange> </observation> </component> <component> <observation moodCode="EVN" classCode="OBS"> <templateId root= "12.02.840.1.237270.1022.4.2" /> <id nullFlavor="NA" /> < code codeSystem="local" code="HARLEY" displayName="ABG DEVICE" /> < statusCode code="completed" /> <effectiveTime value="260786442757" /> <value unit="" xsi:type="PQ" value="NC" /> <referenceRange> <observationRange> <text /> </observationRange > </referenceRange> </observation> </component> < component> <observation moodCode="EVN" classCode="OBS"> < templateId root="840.1.502874.08.05.22.4.2" /> <id nullFlavor="NA " /> <code codeSystem="local" code="FIO2A" displayName="ABG FIO2" /> <statusCode code="completed" /> <effectiveTime value= "324923454198" /> <value unit="%" xsi:type="PQ" value="0.28" /> <referenceRange> <observationRange> <text /> </observationRange> </referenceRange> </observation> </component> <component> <observation moodCode="EVN" classCode= "OBS"> <templateId root="840.1.142351.1022.4.2" /> < id nullFlavor="NA" /> <code codeSystem="local" code="HCO3A" displayName ="ABG BICARBONATE" /> <statusCode code="completed" /> < effectiveTime value="004401395601" /> <value unit="meq/L" xsi:type="PQ " value="19.6" /> <interpretationCode codeSystem="local" code="*" /> <referenceRange> <observationRange> <text>23.0- 28.0</text> </observationRange> </referenceRange> </ observation> </component> <component> <observation moodCode= "EVN" classCode="OBS"> <templateId root="12.02.840.1.980232.10.20.22.4.2 " /> <id nullFlavor="NA" /> <code codeSystem="local" code= "MODEA" displayName="ABG VENT MODE" /> <statusCode code="completed" /> <effectiveTime value="866773791761" /> <value unit="" xsi: type="PQ" value="2L" /> <referenceRange> <observationRange> <text /> </observationRange> </referenceRange > </observation> </component> <component> <observation moodCode="EVN" classCode="OBS"> <templateId root= "12.02.840.1.356336.10.20.22.4.2" /> <id nullFlavor="NA" /> < code codeSystem="local" code="PCO2A" displayName="ABG PCO2" /> < statusCode code="completed" /> <effectiveTime value="751744004673" /> <value unit="mmHg" xsi:type="PQ" value="27" /> < interpretationCode codeSystem="local" code="*" /> <referenceRange> <observationRange> <text>34-45</text> </ observationRange> </referenceRange> </observation> </ component> <component> <observation moodCode="EVN" classCode="OBS"> <templateId root="840.1.973957.10..22.4.2" /> <id nullFlavor="NA" /> <code codeSystem="local" code="PHAX" displayName= "ABG PH" /> <statusCode code="completed" /> <effectiveTime value="" /> <value unit="" xsi:type="PQ" value="7.48" /> <interpretationCode codeSystem="local" code="*" /> < referenceRange> <observationRange> <text>7.35-7.45</text > </observationRange> </referenceRange> </observation > </component> <component> <observation moodCode="EVN" classCode="OBS"> <templateId root="16.840.1.113276.10...4.2" /> <id nullFlavor="NA" /> <code codeSystem="local" code="PO2A" displayName="ABG PO2" /> <statusCode code="completed" /> < effectiveTime value="" /> <value unit="mmHg" xsi:type="PQ" value="89" /> <referenceRange> <observationRange> <text>75-100</text> </observationRange> </referenceRange > </observation> </component> <component> <observation moodCode="EVN" classCode="OBS"> <templateId root= "16.840.1.202610.10.20.22.4.2" /> <id nullFlavor="NA" /> < code codeSystem="local" code="POSA" displayName="ABG PATIENT POSITION" /> <statusCode code="completed" /> <effectiveTime value="644154695746 " /> <value unit="" xsi:type="PQ" value="SF" /> < referenceRange> <observationRange> <text /> < /observationRange> </referenceRange> </observation> </ component> <component> <observation moodCode="EVN" classCode="OBS"> <templateId root="12.02.840.1.384153.10..22.4.2" /> <id nullFlavor="NA" /> <code codeSystem="local" code="SATA" displayName= "ABG O2 SATURATION" /> <statusCode code="completed" /> < effectiveTime value="540559696853" /> <value unit="%" xsi:type="PQ " value="97" /> <referenceRange> <observationRange> <text>93-100</text> </observationRange> </ referenceRange> </observation> </component> <component> <observation moodCode="EVN" classCode="OBS"> <templateId root= "12.02.840.1.831548.08.05.22.4.2" /> <id nullFlavor="NA" /> < code codeSystem="local" code="SITEA" displayName="ABG SITE" /> < statusCode code="completed" /> <effectiveTime value="460053176774" /> <value unit="" xsi:type="PQ" value="RT BRACH" /> < referenceRange> <observationRange> <text /> < /observationRange> </referenceRange> </observation> </ component> </organizer> </entry> <entry> <organizer moodCode="EVN" classCode="BATTERY"> <templateId root="12.02.840.1.953875.10..22.4.1" /> <id nullFlavor="NA" /> <code codeSystem="local" code="MRSAS" displayName="MRSA SURVEILLANCE SCREEN" /> <statusCode code="completed" /> <component> <observation moodCode="EVN" classCode="OBS"> < templateId root="840.1.119488.10..22.4.2" /> <id nullFlavor="NA " /> <code codeSystem="local" code="MB" displayName="Microbiology" /> <statusCode code="completed" /> <effectiveTime value= "067065552946" /> <value xsi:type="ST" value="<pre><b>MRSA SURVEILLANCE SCREEN</b> See BelowMRSA SURVEILLANCE SCREEN(F) Ruma Date/Time: 11/29/2015 15:53 Viktoria Date/Time: // :SOURCE: ANTERIOR NARESSPEC DESC: See BelowMRSA SURVEILLANCE SCREEN(F) Ruma Date/Time : 11/29/2015 15:53 Viktoira Date/Time: 11/30/2015 14: 15SOURCE: ANTERIOR NARESSPEC DESC: NNO [facility] [place] [address]</pre>" /> <referenceRange> <observationRange> <text /> </observationRange> </referenceRange> </observation> </ component> </organizer> </entry> <entry> <organizer moodCode="EVN" classCode="BATTERY"> <templateId root="216.840.1.834117.10..4.1" /> <id nullFlavor="NA" /> <code codeSystem="local" code="CBC" displayName ="CBC" /> <statusCode code="completed" /> <component> < observation moodCode="EVN" classCode="OBS"> <templateId root= "2.16.840.1.854016.10.20.22.4.2" /> <id nullFlavor="NA" /> < code codeSystem="local" code="MCH" displayName="MEAN CELL HGB" /> < statusCode code="completed" /> <effectiveTime value="851728408721" /> <value unit="pg" xsi:type="PQ" value="28.9" /> <referenceRange > <observationRange> <text>27.0-33.0</text> < /observationRange> </referenceRange> </observation> </ component> <component> <observation moodCode="EVN" classCode="OBS"> <templateId root="16.840.1.843742.10.20.22.4.2" /> <id nullFlavor="NA" /> <code codeSystem="local" code="MCHC" displayName= "MEAN CELL HGB CONCENTRATION" /> <statusCode code="completed" /> <effectiveTime value="" /> <value unit="g/dL" xsi:type= "PQ" value="32.7" /> <referenceRange> <observationRange> <text>32.0-37.0</text> </observationRange> </ referenceRange> </observation> </component> <component> <observation moodCode="EVN" classCode="OBS"> <templateId root= "12.02.840.1.250960.10.22.4.2" /> <id nullFlavor="NA" /> < code codeSystem="local" code="MCV" displayName="MEAN CELL VOLUME" /> < statusCode code="completed" /> <effectiveTime value="[id number]" /> <value unit="fl" xsi:type="PQ" value="88.2" /> <referenceRange > <observationRange> <text>80.0-100.0</text> </observationRange> </referenceRange> </observation> </ component> <component> <observation moodCode="EVN" classCode="OBS"> <templateId root="12.02.840.1.582863.10.20.22.4.2" /> <id nullFlavor="NA" /> <code codeSystem="local" code="RBC" displayName=" RED BLOOD CELL" /> <statusCode code="completed" /> < effectiveTime value="" /> <value unit="m/cumm" xsi:type="PQ " value="3.57" /> <interpretationCode codeSystem="local" code="*" /> <referenceRange> <observationRange> <text>4.00- 6.00</text> </observationRange> </referenceRange> </ observation> </component> <component> <observation moodCode= "EVN" classCode="OBS"> <templateId root="216.840.1.953517.10..22.4.2 " /> <id nullFlavor="NA" /> <code codeSystem="local" code="RDW " displayName="RED CELL DISTRIBUTION WIDTH" /> <statusCode code= "completed" /> <effectiveTime value="" /> <value unit="%" xsi:type="PQ" value="15.0" /> <referenceRange> <observationRange> <text>11.0-15.6</text> </ observationRange> </referenceRange> </observation> </ component> <component> <observation moodCode="EVN" classCode="OBS"> <templateId root="216.840.1.958716.10.20.22.4.2" /> <id nullFlavor="NA" /> <code codeSystem="local" code="WBC" displayName= "WHITE BLOOD CELL" /> <statusCode code="completed" /> < effectiveTime value="[id number]" /> <value unit="k/cumm" xsi:type="PQ " value="7.9" /> <referenceRange> <observationRange> <text>5.0-10.0</text> </observationRange> </ referenceRange> </observation> </component> <component> <observation moodCode="EVN" classCode="OBS"> <templateId root= "840.1.983366.10.20.22.4.2" /> <id nullFlavor="NA" /> < code codeSystem="local" code="HGBT" displayName="HEMOGLOBIN" /> < statusCode code="completed" /> <effectiveTime value="[id number]" /> <value unit="gm/dL" xsi:type="PQ" value="10.3" /> < interpretationCode codeSystem="local" code="*" /> <referenceRange> <observationRange> <text>14.0-18.0</text> </ observationRange> </referenceRange> </observation> </ component> <component> <observation moodCode="EVN" classCode="OBS"> <templateId root="12.02.840.1.231216.10..22.4.2" /> <id nullFlavor="NA" /> <code codeSystem="local" code="HCTT" displayName= "HEMATOCRIT" /> <statusCode code="completed" /> < effectiveTime value="[id number]" /> <value unit="%" xsi:type="PQ " value="31.5" /> <interpretationCode codeSystem="local" code="*" /> <referenceRange> <observationRange> <text>40.0- 54.0</text> </observationRange> </referenceRange> </ observation> </component> <component> <observation moodCode= "EVN" classCode="OBS"> <templateId root="12.02.840.1.596527.10.20.22.4.2 " /> <id nullFlavor="NA" /> <code codeSystem="local" code="PLT " displayName="PLATELET COUNT" /> <statusCode code="completed" /> <effectiveTime value="[id number]" /> <value unit="k/cumm" xsi: type="PQ" value="466" /> <interpretationCode codeSystem="local" code="* " /> <referenceRange> <observationRange> <text> 150-450</text> </observationRange> </referenceRange> </observation> </component> </organizer> </entry> <entry> < organizer moodCode="EVN" classCode="BATTERY"> <templateId root= "12.02.840.1.096597.10..22.4.1" /> <id nullFlavor="NA" /> <code codeSystem="local" code="METAB" displayName="METABOLIC PANEL, BASIC" /> < statusCode code="completed" /> <component> <observation moodCode= "EVN" classCode="OBS"> <templateId root="12.02.840.1.584270.10...4.2 " /> <id nullFlavor="NA" /> <code codeSystem="local" code="K" displayName="POTASSIUM" /> <statusCode code="completed" /> < effectiveTime value="" /> <value unit="mmol/L" xsi:type="PQ " value="3.7" /> <referenceRange> <observationRange> <text>3.5-5.3</text> </observationRange> </ referenceRange> </observation> </component> <component> <observation moodCode="EVN" classCode="OBS"> <templateId root= "12.02.840.1.914340.10..22.4.2" /> <id nullFlavor="NA" /> < code codeSystem="local" code="eGFR" displayName="EST GFR (MDRD)" /> < statusCode code="completed" /> <effectiveTime value="" /> <value unit="mL/min" xsi:type="PQ" value="49" /> < interpretationCode codeSystem="local" code="*" /> <referenceRange> <observationRange> <text>> 59</text> </ observationRange> </referenceRange> </observation> </ component> <component> <observation moodCode="EVN" classCode="OBS"> <templateId root="12.02.840.1.709360.10.20.22.4.2" /> <id nullFlavor="NA" /> <code codeSystem="local" code="GAP" displayName= "ANION GAP" /> <statusCode code="completed" /> <effectiveTime value="" /> <value unit="mmol/L" xsi:type="PQ" value="11" / > <referenceRange> <observationRange> <text>5- 15</text> </observationRange> </referenceRange> </ observation> </component> <component> <observation moodCode= "EVN" classCode="OBS"> <templateId root="12.02.840.1.466054.10...4.2 " /> <id nullFlavor="NA" /> <code codeSystem="local" code= "eCrCl" displayName="EST CrCl (CG)" /> <statusCode code="completed" /> <effectiveTime value="" /> <value unit="mL/min" xsi:type="PQ" value="51" /> <interpretationCode codeSystem="local" code ="*" /> <referenceRange> <observationRange> < text>> 59</text> </observationRange> </referenceRange> </observation> </component> <component> <observation moodCode="EVN" classCode="OBS"> <templateId root= "12.02.840.1.029060.10..22.4.2" /> <id nullFlavor="NA" /> < code codeSystem="local" code="GLU" displayName="GLUCOSE" /> < statusCode code="completed" /> <effectiveTime value="" /> <value unit="mg/dL" xsi:type="PQ" value="139" /> < interpretationCode codeSystem="local" code="*" /> <referenceRange> <observationRange> <text>70-99</text> </ observationRange> </referenceRange> </observation> </ component> <component> <observation moodCode="EVN" classCode="OBS"> <templateId root="12.02.840.1.085975.10.20.22.4.2" /> <id nullFlavor="NA" /> <code codeSystem="local" code="CA" displayName= "CALCIUM" /> <statusCode code="completed" /> <effectiveTime value="" /> <value unit="mg/dL" xsi:type="PQ" value="8.7" / > <referenceRange> <observationRange> <text>8.5 -10.1</text> </observationRange> </referenceRange> </ observation> </component> <component> <observation moodCode= "EVN" classCode="OBS"> <templateId root="12.02.840.1.363396.10.20.22.4.2 " /> <id nullFlavor="NA" /> <code codeSystem="local" code="BUN " displayName="BLOOD UREA NITROGEN" /> <statusCode code="completed" /> <effectiveTime value="" /> <value unit="mg/dL" xsi:type="PQ" value="21" /> <interpretationCode codeSystem="local" code ="*" /> <referenceRange> <observationRange> < text>7-20</text> </observationRange> </referenceRange> </observation> </component> <component> <observation moodCode="EVN" classCode="OBS"> <templateId root= "840.1.545007.10..22.4.2" /> <id nullFlavor="NA" /> < code codeSystem="local" code="CREAT" displayName="CREATININE" /> < statusCode code="completed" /> <effectiveTime value="" /> <value unit="mg/dL" xsi:type="PQ" value="1.4" /> < interpretationCode codeSystem="local" code="*" /> <referenceRange> <observationRange> <text>0.7-1.3</text> </ observationRange> </referenceRange> </observation> </ component> <component> <observation moodCode="EVN" classCode="OBS"> <templateId root="216.840.1.937371.10..22.4.2" /> <id nullFlavor="NA" /> <code codeSystem="local" code="NA" displayName= "SODIUM" /> <statusCode code="completed" /> <effectiveTime value="" /> <value unit="mmol/L" xsi:type="PQ" value="140" /> <referenceRange> <observationRange> <text> 135-148</text> </observationRange> </referenceRange> </observation> </component> <component> <observation moodCode= "EVN" classCode="OBS"> <templateId root="16.840.1.019437.10..22.4.2 " /> <id nullFlavor="NA" /> <code codeSystem="local" code="CL " displayName="CHLORIDE" /> <statusCode code="completed" /> < effectiveTime value="" /> <value unit="mmol/L" xsi:type="PQ " value="109" /> <referenceRange> <observationRange> <text>98-110</text> </observationRange> </ referenceRange> </observation> </component> <component> <observation moodCode="EVN" classCode="OBS"> <templateId root= "216.840.1.314163.10..4.2" /> <id nullFlavor="NA" /> < code codeSystem="local" code="CO2" displayName="CARBON DIOXIDE" /> < statusCode code="completed" /> <effectiveTime value="" /> <value unit="mmol/L" xsi:type="PQ" value="20" /> < interpretationCode codeSystem="local" code="*" /> <referenceRange> <observationRange> <text>21-32</text> </ observationRange> </referenceRange> </observation> </ component> </organizer> </entry> <entry> <organizer moodCode="EVN" classCode="BATTERY"> <templateId root="216.840.1.571075.10..22.4.1" /> <id nullFlavor="NA" /> <code codeSystem="local" code="PHOS" displayName="PHOSPHORUS" /> <statusCode code="completed" /> <component > <observation moodCode="EVN" classCode="OBS"> <templateId root= "216.840.1.022563.10..22.4.2" /> <id nullFlavor="NA" /> < code codeSystem="local" code="PHOS" displayName="PHOSPHORUS" /> < statusCode code="completed" /> <effectiveTime value="" /> <value unit="mg/dL" xsi:type="PQ" value="3.0" /> < referenceRange> <observationRange> <text>2.5-4.9</text> </observationRange> </referenceRange> </observation > </component> </organizer> </entry> <entry> <organizer moodCode= "EVN" classCode="BATTERY"> <templateId root="12.02.840.1.717482.10..4.1 " /> <id nullFlavor="NA" /> <code codeSystem="local" code="CK" displayName="CREATINE KINASE (CK/CPK)" /> <statusCode code="completed" /> <component> <observation moodCode="EVN" classCode="OBS"> < templateId root="12.02.840.1.667679.08.05.22.4.2" /> <id nullFlavor="NA " /> <code codeSystem="local" code="CK" displayName="CREATINE KINASE ( CK/CPK)" /> <statusCode code="completed" /> <effectiveTime value="" /> <value unit="Units/L" xsi:type="PQ" value="53" /> <referenceRange> <observationRange> <text>& lt; 309</text> </observationRange> </referenceRange> </observation> </component> </organizer> </entry> <entry> < organizer moodCode="EVN" classCode="BATTERY"> <templateId root= "12.02.840.1.866329.08.05.22.4.1" /> <id nullFlavor="NA" /> <code codeSystem="local" code="MAG" displayName="MAGNESIUM" /> <statusCode code= "completed" /> <component> <observation moodCode="EVN" classCode= "OBS"> <templateId root="12.02.840.1.388028.08.05.22.4.2" /> < id nullFlavor="NA" /> <code codeSystem="local" code="MAG" displayName= "MAGNESIUM" /> <statusCode code="completed" /> <effectiveTime value="" /> <value unit="mg/dL" xsi:type="PQ" value="1.9" / > <referenceRange> <observationRange> <text>1.8 -2.4</text> </observationRange> </referenceRange> </ observation> </component> </organizer> </entry> <entry> <organizer moodCode="EVN" classCode="BATTERY"> <templateId root= "16.840.1.527204.10..4.1" /> <id nullFlavor="NA" /> <code codeSystem="local" code="CRP" displayName="C REACTIVE PROTEIN" /> < statusCode code="completed" /> <component> <observation moodCode= "EVN" classCode="OBS"> <templateId root="216.840.1.662735.10..4.2 " /> <id nullFlavor="NA" /> <code codeSystem="local" code="CRP " displayName="C REACTIVE PROTEIN" /> <statusCode code="completed" /> <effectiveTime value="345894678474" /> <value unit="mg/dL" xsi :type="PQ" value="6.0" /> <interpretationCode codeSystem="local" code= "*" /> <referenceRange> <observationRange> < text>0.00-0.90</text> </observationRange> </referenceRange> </observation> </component> </organizer> </entry> <entry> < organizer moodCode="EVN" classCode="BATTERY"> <templateId root= "16.840.1.629900.10..4.1" /> <id nullFlavor="NA" /> <code codeSystem="local" code="SEDWES" displayName="SED RATE MERCYREN" /> < statusCode code="completed" /> <component> <observation moodCode= "EVN" classCode="OBS"> <templateId root="2.16.840.1.702702.10.20.22.4.2 " /> <id nullFlavor="NA" /> <code codeSystem="local" code= "SEDWES" displayName="SED RATE MARY" /> <statusCode code= "completed" /> <effectiveTime value="177832818093" /> <value unit="mm/hr" xsi:type="PQ" value="86" /> <interpretationCode codeSystem ="local" code="*" /> <referenceRange> <observationRange> <text>0-20</text> </observationRange> </ referenceRange> </observation> </component> </organizer> </entry > <entry> <organizer moodCode="EVN" classCode="BATTERY"> <templateId root="2.16.840.1.374826.10..22.4.1" /> <id nullFlavor="NA" /> <code codeSystem="local" code="VBG" displayName="VENOUS BLOOD GAS" /> < statusCode code="completed" /> <component> <observation moodCode= "EVN" classCode="OBS"> <templateId root="2.16.840.1.466694.10.20.22.4.2 " /> <id nullFlavor="NA" /> <code codeSystem="local" code="ELMIRA " displayName="VBG BASE EXCESS" /> <statusCode code="completed" /> <effectiveTime value="796782502533" /> <value unit="mEq/L" xsi: type="PQ" value="-2.1" /> <referenceRange> <observationRange > <text>-3.0-3.0</text> </observationRange> </ referenceRange> </observation> </component> <component> <observation moodCode="EVN" classCode="OBS"> <templateId root= "16.840.1.670002.10..22.4.2" /> <id nullFlavor="NA" /> < code codeSystem="local" code="HCO3V" displayName="VBG BICARBONATE" /> < statusCode code="completed" /> <effectiveTime value="" /> <value unit="meq/L" xsi:type="PQ" value="21.0" /> < referenceRange> <observationRange> <text>21-30</text> </observationRange> </referenceRange> </observation> </component> <component> <observation moodCode="EVN" classCode= "OBS"> <templateId root="12.02.840.1.710229.10..4.2" /> < id nullFlavor="NA" /> <code codeSystem="local" code="PCO2V" displayName ="VBG PCO2" /> <statusCode code="completed" /> <effectiveTime value="" /> <value unit="mmHg" xsi:type="PQ" value="31" /> <interpretationCode codeSystem="local" code="*" /> < referenceRange> <observationRange> <text>41-51</text> </observationRange> </referenceRange> </observation> </component> <component> <observation moodCode="EVN" classCode= "OBS"> <templateId root="12.02.840.1.490964.10..22.4.2" /> < id nullFlavor="NA" /> <code codeSystem="local" code="PHV" displayName= "VBG PH" /> <statusCode code="completed" /> <effectiveTime value="" /> <value unit="" xsi:type="PQ" value="7.46" /> <interpretationCode codeSystem="local" code="*" /> < referenceRange> <observationRange> <text>7.33-7.43</text > </observationRange> </referenceRange> </observation > </component> <component> <observation moodCode="EVN" classCode="OBS"> <templateId root="12.02.840.1.907756.10.20.22.4.2" /> <id nullFlavor="NA" /> <code codeSystem="local" code="PO2V" displayName="VBG PO2" /> <statusCode code="completed" /> < effectiveTime value="695021588983" /> <value unit="mmHg" xsi:type="PQ" value="60" /> <interpretationCode codeSystem="local" code="*" /> <referenceRange> <observationRange> <text>35-40</ text> </observationRange> </referenceRange> </ observation> </component> <component> <observation moodCode= "EVN" classCode="OBS"> <templateId root="12.02.840.1.370030.10...4.2 " /> <id nullFlavor="NA" /> <code codeSystem="local" code= "SATV" displayName="VBG O2 SATURATION" /> <statusCode code="completed" /> <effectiveTime value="374379394470" /> <value unit="%" xsi:type="PQ" value="90" /> <interpretationCode codeSystem="local" code ="*" /> <referenceRange> <observationRange> < text>65-75</text> </observationRange> </referenceRange> </observation> </component> <component> <observation moodCode="EVN" classCode="OBS"> <templateId root= "12.02.840.1.820101.10.20.22.4.2" /> <id nullFlavor="NA" /> < code codeSystem="local" code="VBGCOM" displayName="COMMENT" /> < statusCode code="completed" /> <effectiveTime value="020740323302" /> <value unit="" xsi:type="PQ" value="2L" /> <referenceRange> <observationRange> <text /> </observationRange > </referenceRange> </observation> </component> </ organizer> </entry> <entry> <organizer moodCode="EVN" classCode="BATTERY"> <templateId root="2.16.840.1.735938.10.20.22.4.1" /> <id nullFlavor= "NA" /> <code codeSystem="local" code="BC" displayName="BLOOD CULTURE" /> <statusCode code="completed" /> <component> <observation moodCode="EVN" classCode="OBS"> <templateId root= "2.16.840.1.717182.10.20.22.4.2" /> <id nullFlavor="NA" /> < code codeSystem="local" code="MB" displayName="Microbiology" /> < statusCode code="completed" /> <effectiveTime value="743333183533" /> <value xsi:type="ST" value="<pre><b>BLOOD CULTURE</b> See BelowBLOOD CULTURE(F) Ruma Date/Time: 11/30/2015 10:37 Viktoria Date/Time: // :SOURCE: BLOODSPEC DESC: PERIPHERALSee BelowIs this the first BLOOD CULTURE or a possible SEPSIS patient? N: [id number] CULTURE(F ) Ruma Date/Time: 11/30/2015 10:37 Viktoria Date/Time: 12/05/2015 20:53SOURCE: BLOODSPEC DESC: [id number] [facility] [place] [address]</pre>" / > <referenceRange> <observationRange> <text /> </observationRange> </referenceRange> </observation > </component> </organizer> </entry> <entry> <organizer moodCode= "EVN" classCode="BATTERY"> <templateId root="2.16.840.1.469227.10..22.4.1 " /> <id nullFlavor="NA" /> <code codeSystem="local" code="BC" displayName="BLOOD CULTURE" /> <statusCode code="completed" /> < component> <observation moodCode="EVN" classCode="OBS"> < templateId root="2.16.840.1.465169.10..22.4.2" /> <id nullFlavor="NA " /> <code codeSystem="local" code="MB" displayName="Microbiology" /> <statusCode code="completed" /> <effectiveTime value= "434556422086" /> <value xsi:type="ST" value="<pre><b>BLOOD CULTURE</b > See BelowBLOOD CULTURE(F) Ruma Date/Time: 11/30/2015 10:48 Viktoria Date/Time: // :SOURCE: BLOODSPEC DESC: PERIPHERALSee BelowIs this the first BLOOD CULTURE or a possible SEPSIS patient ? N: [id number] CULTURE(F) Ruma Date/Time: 11/30/2015 10:48 Viktoria Date/Time: 12/05/2015 20:53SOURCE: BLOODSPEC DESC : [id number] [place] [address]</pre>" /> <referenceRange> <observationRange> <text /> </observationRange> </referenceRange> </observation> </component> </organizer> </entry> <entry> < organizer moodCode="EVN" classCode="BATTERY"> <templateId root= "2.16.840.1.246588.10..22.4.1" /> <id nullFlavor="NA" /> <code codeSystem="local" code="CBC" displayName="CBC" /> <statusCode code= "completed" /> <component> <observation moodCode="EVN" classCode= "OBS"> <templateId root="216.840.1.719455.10..4.2" /> < id nullFlavor="NA" /> <code codeSystem="local" code="MCH" displayName= "MEAN CELL HGB" /> <statusCode code="completed" /> < effectiveTime value="" /> <value unit="pg" xsi:type="PQ" value="28.9" /> <referenceRange> <observationRange> <text>27.0-33.0</text> </observationRange> </ referenceRange> </observation> </component> <component> <observation moodCode="EVN" classCode="OBS"> <templateId root= "12.02.840.1.372575.08.05.22.4.2" /> <id nullFlavor="NA" /> < code codeSystem="local" code="MCHC" displayName="MEAN CELL HGB CONCENTRATION" / > <statusCode code="completed" /> <effectiveTime value= "" /> <value unit="g/dL" xsi:type="PQ" value="32.9" /> <referenceRange> <observationRange> <text>32.0- 37.0</text> </observationRange> </referenceRange> </ observation> </component> <component> <observation moodCode= "EVN" classCode="OBS"> <templateId root="12.02.840.1.167671.10..4.2 " /> <id nullFlavor="NA" /> <code codeSystem="local" code="MCV " displayName="MEAN CELL VOLUME" /> <statusCode code="completed" /> <effectiveTime value="" /> <value unit="fl" xsi:type ="PQ" value="87.8" /> <referenceRange> <observationRange> <text>80.0-100.0</text> </observationRange> </ referenceRange> </observation> </component> <component> <observation moodCode="EVN" classCode="OBS"> <templateId root= "216.840.1.161720.10.20.22.4.2" /> <id nullFlavor="NA" /> < code codeSystem="local" code="RBC" displayName="RED BLOOD CELL" /> < statusCode code="completed" /> <effectiveTime value="657898670422" /> <value unit="m/cumm" xsi:type="PQ" value="3.53" /> < interpretationCode codeSystem="local" code="*" /> <referenceRange> <observationRange> <text>4.00-6.00</text> </ observationRange> </referenceRange> </observation> </ component> <component> <observation moodCode="EVN" classCode="OBS"> <templateId root="12.02.840.1.364279.22.4.2" /> <id nullFlavor="NA" /> <code codeSystem="local" code="RDW" displayName=" RED CELL DISTRIBUTION WIDTH" /> <statusCode code="completed" /> <effectiveTime value="" /> <value unit="%" xsi:type= "PQ" value="14.9" /> <referenceRange> <observationRange> <text>11.0-15.6</text> </observationRange> </ referenceRange> </observation> </component> <component> <observation moodCode="EVN" classCode="OBS"> <templateId root= "216.840.1.740620.10.2022.4.2" /> <id nullFlavor="NA" /> < code codeSystem="local" code="WBC" displayName="WHITE BLOOD CELL" /> < statusCode code="completed" /> <effectiveTime value="130646075431" /> <value unit="k/cumm" xsi:type="PQ" value="8.9" /> < referenceRange> <observationRange> <text>5.0-10.0</text > </observationRange> </referenceRange> </observation > </component> <component> <observation moodCode="EVN" classCode="OBS"> <templateId root="2.16.840.1.205593.10.20.22.4.2" /> <id nullFlavor="NA" /> <code codeSystem="local" code="HGBT" displayName="HEMOGLOBIN" /> <statusCode code="completed" /> < effectiveTime value="" /> <value unit="gm/dL" xsi:type="PQ " value="10.2" /> <interpretationCode codeSystem="local" code="*" /> <referenceRange> <observationRange> <text>14.0- 18.0</text> </observationRange> </referenceRange> </ observation> </component> <component> <observation moodCode= "EVN" classCode="OBS"> <templateId root="2.16.840.1.213916.10.20.22.4.2 " /> <id nullFlavor="NA" /> <code codeSystem="local" code= "HCTT" displayName="HEMATOCRIT" /> <statusCode code="completed" /> <effectiveTime value="" /> <value unit="%" xsi: type="PQ" value="31.0" /> <interpretationCode codeSystem="local" code= "*" /> <referenceRange> <observationRange> < text>40.0-54.0</text> </observationRange> </referenceRange> </observation> </component> <component> <observation moodCode="EVN" classCode="OBS"> <templateId root= "216.840.1.140850.1022.4.2" /> <id nullFlavor="NA" /> < code codeSystem="local" code="PLT" displayName="PLATELET COUNT" /> < statusCode code="completed" /> <effectiveTime value="119293634424" /> <value unit="k/cumm" xsi:type="PQ" value="478" /> < interpretationCode codeSystem="local" code="*" /> <referenceRange> <observationRange> <text>150-450</text> </ observationRange> </referenceRange> </observation> </ component> </organizer> </entry> <entry> <organizer moodCode="EVN" classCode="BATTERY"> <templateId root="216.840.1.393471.10.22.4.1" /> <id nullFlavor="NA" /> <code codeSystem="local" code="METAB" displayName="METABOLIC PANEL, BASIC" /> <statusCode code="completed" /> <component> <observation moodCode="EVN" classCode="OBS"> < templateId root="216.840.1.759922.10.22.4.2" /> <id nullFlavor="NA " /> <code codeSystem="local" code="K" displayName="POTASSIUM" /> <statusCode code="completed" /> <effectiveTime value="512065551406 " /> <value unit="mmol/L" xsi:type="PQ" value="3.8" /> < referenceRange> <observationRange> <text>3.5-5.3</text> </observationRange> </referenceRange> </observation > </component> <component> <observation moodCode="EVN" classCode="OBS"> <templateId root="2.16.840.1.288759.10...4.2" /> <id nullFlavor="NA" /> <code codeSystem="local" code="eGFR" displayName="EST GFR (MDRD)" /> <statusCode code="completed" /> <effectiveTime value="" /> <value unit="mL/min" xsi:type ="PQ" value="53" /> <interpretationCode codeSystem="local" code="*" /> <referenceRange> <observationRange> <text>&gt ; 59</text> </observationRange> </referenceRange> </ observation> </component> <component> <observation moodCode= "EVN" classCode="OBS"> <templateId root="216.840.1.163564...4.2 " /> <id nullFlavor="NA" /> <code codeSystem="local" code="GAP " displayName="ANION GAP" /> <statusCode code="completed" /> < effectiveTime value="" /> <value unit="mmol/L" xsi:type="PQ " value="11" /> <referenceRange> <observationRange> <text>5-15</text> </observationRange> </referenceRange > </observation> </component> <component> <observation moodCode="EVN" classCode="OBS"> <templateId root= "216.840.1.731873.10..22.4.2" /> <id nullFlavor="NA" /> < code codeSystem="local" code="eCrCl" displayName="EST CrCl (CG)" /> < statusCode code="completed" /> <effectiveTime value="" /> <value unit="mL/min" xsi:type="PQ" value="55" /> < interpretationCode codeSystem="local" code="*" /> <referenceRange> <observationRange> <text>> 59</text> </ observationRange> </referenceRange> </observation> </ component> <component> <observation moodCode="EVN" classCode="OBS"> <templateId root="12.02.840.1.566298.1022.4.2" /> <id nullFlavor="NA" /> <code codeSystem="local" code="GLU" displayName= "GLUCOSE" /> <statusCode code="completed" /> <effectiveTime value="" /> <value unit="mg/dL" xsi:type="PQ" value="95" / > <referenceRange> <observationRange> <text>70- 99</text> </observationRange> </referenceRange> </ observation> </component> <component> <observation moodCode= "EVN" classCode="OBS"> <templateId root="840.1.796491.1022.4.2 " /> <id nullFlavor="NA" /> <code codeSystem="local" code="CA " displayName="CALCIUM" /> <statusCode code="completed" /> < effectiveTime value="" /> <value unit="mg/dL" xsi:type="PQ " value="8.8" /> <referenceRange> <observationRange> <text>8.5-10.1</text> </observationRange> </ referenceRange> </observation> </component> <component> <observation moodCode="EVN" classCode="OBS"> <templateId root= "12.02.840.1.517847.10.2022.4.2" /> <id nullFlavor="NA" /> < code codeSystem="local" code="BUN" displayName="BLOOD UREA NITROGEN" /> <statusCode code="completed" /> <effectiveTime value="[id number]" / > <value unit="mg/dL" xsi:type="PQ" value="27" /> < interpretationCode codeSystem="local" code="*" /> <referenceRange> <observationRange> <text>7-20</text> </ observationRange> </referenceRange> </observation> </ component> <component> <observation moodCode="EVN" classCode="OBS"> <templateId root="216.840.1.770117.10...4.2" /> <id nullFlavor="NA" /> <code codeSystem="local" code="CREAT" displayName= "CREATININE" /> <statusCode code="completed" /> < effectiveTime value="[id number]" /> <value unit="mg/dL" xsi:type="PQ " value="1.3" /> <referenceRange> <observationRange> <text>0.7-1.3</text> </observationRange> </ referenceRange> </observation> </component> <component> <observation moodCode="EVN" classCode="OBS"> <templateId root= "216.840.1.949750.10..22.4.2" /> <id nullFlavor="NA" /> < code codeSystem="local" code="NA" displayName="SODIUM" /> <statusCode code="completed" /> <effectiveTime value="905712289933" /> < value unit="mmol/L" xsi:type="PQ" value="140" /> <referenceRange> <observationRange> <text>135-148</text> </ observationRange> </referenceRange> </observation> </ component> <component> <observation moodCode="EVN" classCode="OBS"> <templateId root="216840.1.782174.08.05.22.4.2" /> <id nullFlavor="NA" /> <code codeSystem="local" code="CL" displayName= "CHLORIDE" /> <statusCode code="completed" /> <effectiveTime value="" /> <value unit="mmol/L" xsi:type="PQ" value="108" /> <referenceRange> <observationRange> <text>98 -110</text> </observationRange> </referenceRange> </ observation> </component> <component> <observation moodCode= "EVN" classCode="OBS"> <templateId root="840.1.432404.08.05.22.4.2 " /> <id nullFlavor="NA" /> <code codeSystem="local" code="CO2 " displayName="CARBON DIOXIDE" /> <statusCode code="completed" /> <effectiveTime value="" /> <value unit="mmol/L" xsi: type="PQ" value="21" /> <referenceRange> <observationRange> <text>21-32</text> </observationRange> </ referenceRange> </observation> </component> </organizer> </entry > <entry> <organizer moodCode="EVN" classCode="BATTERY"> <templateId root="840.1.943689.08.05.22.4.1" /> <id nullFlavor="NA" /> <code codeSystem="local" code="PHOS" displayName="PHOSPHORUS" /> <statusCode code ="completed" /> <component> <observation moodCode="EVN" classCode= "OBS"> <templateId root="12.02.840.1.990846.22.4.2" /> < id nullFlavor="NA" /> <code codeSystem="local" code="PHOS" displayName= "PHOSPHORUS" /> <statusCode code="completed" /> < effectiveTime value="" /> <value unit="mg/dL" xsi:type="PQ " value="3.1" /> <referenceRange> <observationRange> <text>2.5-4.9</text> </observationRange> </ referenceRange> </observation> </component> </organizer> </entry > <entry> <organizer moodCode="EVN" classCode="BATTERY"> <templateId root="216.840.1.205296.10..22.4.1" /> <id nullFlavor="NA" /> <code codeSystem="local" code="MAG" displayName="MAGNESIUM" /> <statusCode code= "completed" /> <component> <observation moodCode="EVN" classCode= "OBS"> <templateId root="216.840.1.253933.10..22.4.2" /> < id nullFlavor="NA" /> <code codeSystem="local" code="MAG" displayName= "MAGNESIUM" /> <statusCode code="completed" /> <effectiveTime value="699546197436" /> <value unit="mg/dL" xsi:type="PQ" value="1.8" / > <referenceRange> <observationRange> <text>1.8 -2.4</text> </observationRange> </referenceRange> </ observation> </component> </organizer> </entry> <entry> <organizer moodCode="EVN" classCode="BATTERY"> <templateId root= "216.840.1.943889.10..22.4.1" /> <id nullFlavor="NA" /> <code codeSystem="local" code="NESTOR" displayName="FERRITIN" /> <statusCode code= "completed" /> <component> <observation moodCode="EVN" classCode= "OBS"> <templateId root="840.1.086748.10..22.4.2" /> < id nullFlavor="NA" /> <code codeSystem="local" code="NESTOR" displayName= "FERRITIN" /> <statusCode code="completed" /> <effectiveTime value="504938023580" /> <value unit="ng/mL" xsi:type="PQ" value="175" / > <referenceRange> <observationRange> <text>26- 388</text> </observationRange> </referenceRange> </ observation> </component> </organizer> </entry> <entry> <organizer moodCode="EVN" classCode="BATTERY"> <templateId root= "840.1.391794.10...4.1" /> <id nullFlavor="NA" /> <code codeSystem="local" code="FETIBC" displayName="IRON W/ BINDING CAPACITY" /> <statusCode code="completed" /> <component> <observation moodCode= "EVN" classCode="OBS"> <templateId root="12.02.840.1.347769.10...4.2 " /> <id nullFlavor="NA" /> <code codeSystem="local" code= "FESAT" displayName="IRON SATURATION" /> <statusCode code="completed" / > <effectiveTime value="571484120076" /> <value unit="%SAT " xsi:type="PQ" value="13" /> <referenceRange> < observationRange> <text>11-46</text> </observationRange > </referenceRange> </observation> </component> < component> <observation moodCode="EVN" classCode="OBS"> < templateId root="12.02.840.1.217237.10.4.2" /> <id nullFlavor="NA " /> <code codeSystem="local" code="TIBC" displayName="IRON BINDING CAPACITY, TOTAL" /> <statusCode code="completed" /> < effectiveTime value="" /> <value unit="mcg/dL" xsi:type="PQ " value="229" /> <interpretationCode codeSystem="local" code="*" /> <referenceRange> <observationRange> <text>250-450 </text> </observationRange> </referenceRange> </ observation> </component> <component> <observation moodCode= "EVN" classCode="OBS"> <templateId root="840.1.296230.08.05.224.2 " /> <id nullFlavor="NA" /> <code codeSystem="local" code= "IRON" displayName="IRON" /> <statusCode code="completed" /> < effectiveTime value="" /> <value unit="mcg/dL" xsi:type="PQ " value="30" /> <interpretationCode codeSystem="local" code="*" /> <referenceRange> <observationRange> <text>35-150</ text> </observationRange> </referenceRange> </ observation> </component> </organizer> </entry> <entry> <organizer moodCode="EVN" classCode="BATTERY"> <templateId root= "840.1.767128.08.05.22.4.1" /> <id nullFlavor="NA" /> <code codeSystem="local" code="CBC" displayName="CBC" /> <statusCode code= "completed" /> <component> <observation moodCode="EVN" classCode= "OBS"> <templateId root="840.1.021819.08.05.22.4.2" /> < id nullFlavor="NA" /> <code codeSystem="local" code="MCH" displayName= "MEAN CELL HGB" /> <statusCode code="completed" /> < effectiveTime value="" /> <value unit="pg" xsi:type="PQ" value="28.8" /> <referenceRange> <observationRange> <text>27.0-33.0</text> </observationRange> </ referenceRange> </observation> </component> <component> <observation moodCode="EVN" classCode="OBS"> <templateId root= "2.16.840.1.772776.10..22.4.2" /> <id nullFlavor="NA" /> < code codeSystem="local" code="MCHC" displayName="MEAN CELL HGB CONCENTRATION" / > <statusCode code="completed" /> <effectiveTime value= "" /> <value unit="g/dL" xsi:type="PQ" value="33.9" /> <referenceRange> <observationRange> <text>32.0- 37.0</text> </observationRange> </referenceRange> </ observation> </component> <component> <observation moodCode= "EVN" classCode="OBS"> <templateId root="2.16.840.1.358498.10..22.4.2 " /> <id nullFlavor="NA" /> <code codeSystem="local" code="MCV " displayName="MEAN CELL VOLUME" /> <statusCode code="completed" /> <effectiveTime value="" /> <value unit="fl" xsi:type ="PQ" value="84.9" /> <referenceRange> <observationRange> <text>80.0-100.0</text> </observationRange> </ referenceRange> </observation> </component> <component> <observation moodCode="EVN" classCode="OBS"> <templateId root= "12.02.840.1.739650.10.20.22.4.2" /> <id nullFlavor="NA" /> < code codeSystem="local" code="RBC" displayName="RED BLOOD CELL" /> < statusCode code="completed" /> <effectiveTime value="" /> <value unit="m/cumm" xsi:type="PQ" value="4.65" /> < referenceRange> <observationRange> <text>4.00-6.00</text > </observationRange> </referenceRange> </observation > </component> <component> <observation moodCode="EVN" classCode="OBS"> <templateId root="12.02.840.1.459716.10..22.4.2" /> <id nullFlavor="NA" /> <code codeSystem="local" code="RDW" displayName="RED CELL DISTRIBUTION WIDTH" /> <statusCode code= "completed" /> <effectiveTime value="" /> <value unit="%" xsi:type="PQ" value="15.2" /> <referenceRange> <observationRange> <text>11.0-15.6</text> </ observationRange> </referenceRange> </observation> </ component> <component> <observation moodCode="EVN" classCode="OBS"> <templateId root="12.02.840.1.526226.10.20.22.4.2" /> <id nullFlavor="NA" /> <code codeSystem="local" code="WBC" displayName= "WHITE BLOOD CELL" /> <statusCode code="completed" /> < effectiveTime value="" /> <value unit="k/cumm" xsi:type="PQ " value="5.7" /> <referenceRange> <observationRange> <text>5.0-10.0</text> </observationRange> </ referenceRange> </observation> </component> <component> <observation moodCode="EVN" classCode="OBS"> <templateId root= "216.840.1.625686.10.20.22.4.2" /> <id nullFlavor="NA" /> < code codeSystem="local" code="HGBT" displayName="HEMOGLOBIN" /> < statusCode code="completed" /> <effectiveTime value="633100402752" /> <value unit="gm/dL" xsi:type="PQ" value="13.4" /> < interpretationCode codeSystem="local" code="*" /> <referenceRange> <observationRange> <text>14.0-18.0</text> </ observationRange> </referenceRange> </observation> </ component> <component> <observation moodCode="EVN" classCode="OBS"> <templateId root="12.02.840.1.545750.10.20.22.4.2" /> <id nullFlavor="NA" /> <code codeSystem="local" code="HCTT" displayName= "HEMATOCRIT" /> <statusCode code="completed" /> < effectiveTime value="056307845660" /> <value unit="%" xsi:type="PQ " value="39.5" /> <interpretationCode codeSystem="local" code="*" /> <referenceRange> <observationRange> <text>40.0- 54.0</text> </observationRange> </referenceRange> </ observation> </component> <component> <observation moodCode= "EVN" classCode="OBS"> <templateId root="16.840.1.040431.10.20.22.4.2 " /> <id nullFlavor="NA" /> <code codeSystem="local" code="PLT " displayName="PLATELET COUNT" /> <statusCode code="completed" /> <effectiveTime value="569651352892" /> <value unit="k/cumm" xsi: type="PQ" value="180" /> <referenceRange> <observationRange > <text>150-450</text> </observationRange> </ referenceRange> </observation> </component> </organizer> </entry > <entry> <organizer moodCode="EVN" classCode="BATTERY"> <templateId root="216.840.1.447095.10..22.4.1" /> <id nullFlavor="NA" /> <code codeSystem="local" code="PT" displayName="PROTHROMBIN TIME WITH INR" /> < statusCode code="completed" /> <component> <observation moodCode= "EVN" classCode="OBS"> <templateId root="216.840.1.991686.10..22.4.2 " /> <id nullFlavor="NA" /> <code codeSystem="local" code= "INRX" displayName="INTERNATIONAL NORMAL RATIO" /> <statusCode code= "completed" /> <effectiveTime value="927869239244" /> <value unit="" xsi:type="PQ" value="0.9" /> <referenceRange> < observationRange> <text>0.9-1.1</text> </ observationRange> </referenceRange> </observation> </ component> <component> <observation moodCode="EVN" classCode="OBS"> <templateId root="216.840.1.389242.10..22.4.2" /> <id nullFlavor="NA" /> <code codeSystem="local" code="PTPAT" displayName= "PROTHROMBIN TIME" /> <statusCode code="completed" /> < effectiveTime value="309952885474" /> <value unit="sec" xsi:type="PQ" value="10.9" /> <referenceRange> <observationRange> <text>10.0-12.9</text> </observationRange> </ referenceRange> </observation> </component> </organizer> </entry > <entry> <organizer moodCode="EVN" classCode="BATTERY"> <templateId root="12.02.840.1.338231.08.05..4.1" /> <id nullFlavor="NA" /> <code codeSystem="local" code="METAB" displayName="METABOLIC PANEL, BASIC" /> < statusCode code="completed" /> <component> <observation moodCode= "EVN" classCode="OBS"> <templateId root="12.02.840.1.473428....4.2 " /> <id nullFlavor="NA" /> <code codeSystem="local" code="K" displayName="POTASSIUM" /> <statusCode code="completed" /> < effectiveTime value="" /> <value unit="mmol/L" xsi:type="PQ " value="4.1" /> <referenceRange> <observationRange> <text>3.5-5.3</text> </observationRange> </ referenceRange> </observation> </component> <component> <observation moodCode="EVN" classCode="OBS"> <templateId root= "840.1.912380.10...4.2" /> <id nullFlavor="NA" /> < code codeSystem="local" code="eGFR" displayName="EST GFR (MDRD)" /> < statusCode code="completed" /> <effectiveTime value="" /> <value unit="mL/min" xsi:type="PQ" value="53" /> < interpretationCode codeSystem="local" code="*" /> <referenceRange> <observationRange> <text>> 59</text> </ observationRange> </referenceRange> </observation> </ component> <component> <observation moodCode="EVN" classCode="OBS"> <templateId root="12.02.840.1.369260.10..22.4.2" /> <id nullFlavor="NA" /> <code codeSystem="local" code="GAP" displayName= "ANION GAP" /> <statusCode code="completed" /> <effectiveTime value="" /> <value unit="mmol/L" xsi:type="PQ" value="9" / > <referenceRange> <observationRange> <text>5- 15</text> </observationRange> </referenceRange> </ observation> </component> <component> <observation moodCode= "EVN" classCode="OBS"> <templateId root="12.02.840.1.653167.10...4.2 " /> <id nullFlavor="NA" /> <code codeSystem="local" code= "eCrCl" displayName="EST CrCl (CG)" /> <statusCode code="completed" /> <effectiveTime value="" /> <value unit="mL/min" xsi:type="PQ" value="55" /> <interpretationCode codeSystem="local" code ="*" /> <referenceRange> <observationRange> < text>> 59</text> </observationRange> </referenceRange> </observation> </component> <component> <observation moodCode="EVN" classCode="OBS"> <templateId root= "12.02.840.1.077351.10..22.4.2" /> <id nullFlavor="NA" /> < code codeSystem="local" code="GLU" displayName="GLUCOSE" /> < statusCode code="completed" /> <effectiveTime value="" /> <value unit="mg/dL" xsi:type="PQ" value="103" /> < interpretationCode codeSystem="local" code="*" /> <referenceRange> <observationRange> <text>70-99</text> </ observationRange> </referenceRange> </observation> </ component> <component> <observation moodCode="EVN" classCode="OBS"> <templateId root="2.16.840.1.980947.10..22.4.2" /> <id nullFlavor="NA" /> <code codeSystem="local" code="CA" displayName= "CALCIUM" /> <statusCode code="completed" /> <effectiveTime value="" /> <value unit="mg/dL" xsi:type="PQ" value="9.1" / > <referenceRange> <observationRange> <text>8.5 -10.1</text> </observationRange> </referenceRange> </ observation> </component> <component> <observation moodCode= "EVN" classCode="OBS"> <templateId root="2.16.840.1.555144.10..22.4.2 " /> <id nullFlavor="NA" /> <code codeSystem="local" code="BUN " displayName="BLOOD UREA NITROGEN" /> <statusCode code="completed" /> <effectiveTime value="" /> <value unit="mg/dL" xsi:type="PQ" value="19" /> <referenceRange> < observationRange> <text>7-20</text> </observationRange> </referenceRange> </observation> </component> < component> <observation moodCode="EVN" classCode="OBS"> < templateId root="216.840.1.519321.10..22.4.2" /> <id nullFlavor="NA " /> <code codeSystem="local" code="CREAT" displayName="CREATININE" /> <statusCode code="completed" /> <effectiveTime value= "" /> <value unit="mg/dL" xsi:type="PQ" value="1.3" /> <referenceRange> <observationRange> <text>0.7-1.3< /text> </observationRange> </referenceRange> </ observation> </component> <component> <observation moodCode= "EVN" classCode="OBS"> <templateId root="216.840.1.593596.10..22.4.2 " /> <id nullFlavor="NA" /> <code codeSystem="local" code="NA " displayName="SODIUM" /> <statusCode code="completed" /> < effectiveTime value="" /> <value unit="mmol/L" xsi:type="PQ " value="139" /> <referenceRange> <observationRange> <text>135-148</text> </observationRange> </ referenceRange> </observation> </component> <component> <observation moodCode="EVN" classCode="OBS"> <templateId root= "16.840.1.776154.10..22.4.2" /> <id nullFlavor="NA" /> < code codeSystem="local" code="CL" displayName="CHLORIDE" /> < statusCode code="completed" /> <effectiveTime value="" /> <value unit="mmol/L" xsi:type="PQ" value="105" /> < referenceRange> <observationRange> <text>98-110</text> </observationRange> </referenceRange> </observation> </component> <component> <observation moodCode="EVN" classCode ="OBS"> <templateId root="2.16.840.1.727651.10.20.22.4.2" /> < id nullFlavor="NA" /> <code codeSystem="local" code="CO2" displayName= "CARBON DIOXIDE" /> <statusCode code="completed" /> < effectiveTime value="158778758531" /> <value unit="mmol/L" xsi:type="PQ " value="25" /> <referenceRange> <observationRange> <text>21-32</text> </observationRange> </ referenceRange> </observation> </component> </organizer> </entry > <entry> <organizer moodCode="EVN" classCode="BATTERY"> <templateId root="2.16.840.1.777241.10..22.4.1" /> <id nullFlavor="NA" /> <code codeSystem="local" code="49242-7" displayName="Complete blood count (CBC) with automated white blood cell (WBC) differential" /> <statusCode code= "completed" /> <component> <observation moodCode="EVN" classCode= "OBS"> <templateId root="2.16.840.1.609993.10.20.22.4.2" /> < id nullFlavor="NA" /> <code codeSystem="local" code="6690-2" displayName="Blood leukocytes automated count (number/volume)" /> < statusCode code="completed" /> <effectiveTime value="507784607111" /> <value unit="10*3/uL" xsi:type="PQ" value="6.3" /> < referenceRange> <observationRange> <text>4.3-11.0</text > </observationRange> </referenceRange> </observation > </component> <component> <observation moodCode="EVN" classCode="OBS"> <templateId root="2.16.840.1.247393.10.20.22.4.2" /> <id nullFlavor="NA" /> <code codeSystem="local" code="789-8" displayName="Blood erythrocytes automated count (number/volume)" /> < statusCode code="completed" /> <effectiveTime value="315629073146" /> <value unit="10*6/uL" xsi:type="PQ" value="4.70" /> < referenceRange> <observationRange> <text>4.35-5.85</text > </observationRange> </referenceRange> </observation > </component> <component> <observation moodCode="EVN" classCode="OBS"> <templateId root="2.16.840.1.623528.10.22.4.2" /> <id nullFlavor="NA" /> <code codeSystem="local" code="66071-7 " displayName="Venous blood hemoglobin measurement (mass/volume)" /> < statusCode code="completed" /> <effectiveTime value="325992247035" /> <value unit="g/dL" xsi:type="PQ" value="14.0" /> < referenceRange> <observationRange> <text>13.3-17.7</text > </observationRange> </referenceRange> </observation > </component> <component> <observation moodCode="EVN" classCode="OBS"> <templateId root="2.16.840.1.507952.10.20.22.4.2" /> <id nullFlavor="NA" /> <code codeSystem="local" code="59319-6 " displayName="Blood hematocrit (volume fraction)" /> <statusCode code= "completed" /> <effectiveTime value="049864581368" /> <value unit="%" xsi:type="PQ" value="41" /> <referenceRange> < observationRange> <text>40-54</text> </observationRange > </referenceRange> </observation> </component> < component> <observation moodCode="EVN" classCode="OBS"> < templateId root="216.840.1.657897.10..22.4.2" /> <id nullFlavor="NA " /> <code codeSystem="local" code="787-2" displayName="Automated erythrocyte mean corpuscular volume" /> <statusCode code="completed" / > <effectiveTime value="476832304491" /> <value unit="[foz_us] " xsi:type="PQ" value="87" /> <referenceRange> < observationRange> <text>80-99</text> </observationRange > </referenceRange> </observation> </component> < component> <observation moodCode="EVN" classCode="OBS"> < templateId root="216.840.1.926534.10...4.2" /> <id nullFlavor="NA " /> <code codeSystem="local" code="785-6" displayName="Automated erythrocyte mean corpuscular hemoglobin (mass per erythrocyte)" /> < statusCode code="completed" /> <effectiveTime value="175437681610" /> <value unit="pg" xsi:type="PQ" value="30" /> <referenceRange> <observationRange> <text>25-34</text> </ observationRange> </referenceRange> </observation> </ component> <component> <observation moodCode="EVN" classCode="OBS"> <templateId root="2.16.840.1.194861.10.20.22.4.2" /> <id nullFlavor="NA" /> <code codeSystem="local" code="786-4" displayName= "Automated erythrocyte mean corpuscular hemoglobin concentration measurement ( mass/volume)" /> <statusCode code="completed" /> < effectiveTime value="699261193347" /> <value unit="g/dL" xsi:type="PQ" value="34" /> <referenceRange> <observationRange> <text>32-36</text> </observationRange> </referenceRange > </observation> </component> <component> <observation moodCode="EVN" classCode="OBS"> <templateId root= "2.16.840.1.500120.10.20.22.4.2" /> <id nullFlavor="NA" /> < code codeSystem="local" code="788-0" displayName="Automated erythrocyte distribution width ratio" /> <statusCode code="completed" /> < effectiveTime value="267586156270" /> <value unit="%" xsi:type="PQ " value="14.9" /> <interpretationCode codeSystem="local" code="" /> <referenceRange> <observationRange> <text>10.0- 14.5</text> </observationRange> </referenceRange> </ observation> </component> <component> <observation moodCode= "EVN" classCode="OBS"> <templateId root="2.16.840.1.043016.10.20.22.4.2 " /> <id nullFlavor="NA" /> <code codeSystem="local" code="777 -3" displayName="Automated blood platelet count (count/volume)" /> < statusCode code="completed" /> <effectiveTime value="738663766487" /> <value unit="10*3/uL" xsi:type="PQ" value="201" /> < referenceRange> <observationRange> <text>130-400</text> </observationRange> </referenceRange> </observation > </component> <component> <observation moodCode="EVN" classCode="OBS"> <templateId root="2.16.840.1.261852.10.20.22.4.2" /> <id nullFlavor="NA" /> <code codeSystem="local" code="24817-0 " displayName="Automated blood platelet mean volume measurement" /> < statusCode code="completed" /> <effectiveTime value="520893499496" /> <value unit="[foz_us]" xsi:type="PQ" value="10.1" /> < referenceRange> <observationRange> <text>7.4-10.4</text > </observationRange> </referenceRange> </observation > </component> <component> <observation moodCode="EVN" classCode="OBS"> <templateId root="216.840.1.863862.10.22.4.2" /> <id nullFlavor="NA" /> <code codeSystem="local" code="770-8" displayName="Automated blood neutrophils/100 leukocytes" /> < statusCode code="completed" /> <effectiveTime value="088757987145" /> <value unit="%" xsi:type="PQ" value="61" /> < referenceRange> <observationRange> <text>42-75</text> </observationRange> </referenceRange> </observation> </component> <component> <observation moodCode="EVN" classCode= "OBS"> <templateId root="2.16.840.1.914018.10.20.22.4.2" /> < id nullFlavor="NA" /> <code codeSystem="local" code="736-9" displayName ="Automated blood lymphocytes/100 leukocytes" /> <statusCode code= "completed" /> <effectiveTime value="318119978730" /> <value unit="%" xsi:type="PQ" value="29" /> <referenceRange> < observationRange> <text>12-44</text> </observationRange > </referenceRange> </observation> </component> < component> <observation moodCode="EVN" classCode="OBS"> < templateId root="2.16.840.1.704009.10..22.4.2" /> <id nullFlavor="NA " /> <code codeSystem="local" code="95806-2" displayName="Blood monocytes/100 leukocytes" /> <statusCode code="completed" /> < effectiveTime value="664605937241" /> <value unit="%" xsi:type="PQ " value="7" /> <referenceRange> <observationRange> <text>0-12</text> </observationRange> </referenceRange > </observation> </component> <component> <observation moodCode="EVN" classCode="OBS"> <templateId root= "2.16.840.1.677872.10..22.4.2" /> <id nullFlavor="NA" /> < code codeSystem="local" code="713-8" displayName="Automated blood eosinophils/ 100 leukocytes" /> <statusCode code="completed" /> < effectiveTime value="349913246553" /> <value unit="%" xsi:type="PQ " value="3" /> <referenceRange> <observationRange> <text>0-10</text> </observationRange> </referenceRange > </observation> </component> <component> <observation moodCode="EVN" classCode="OBS"> <templateId root= "2.16.840.1.346104.10.20.22.4.2" /> <id nullFlavor="NA" /> < code codeSystem="local" code="706-2" displayName="Automated blood basophils/100 leukocytes" /> <statusCode code="completed" /> <effectiveTime value="491249010183" /> <value unit="%" xsi:type="PQ" value="0" /> <referenceRange> <observationRange> <text>0-10 </text> </observationRange> </referenceRange> </ observation> </component> <component> <observation moodCode= "EVN" classCode="OBS"> <templateId root="2.16.840.1.182307.10...4.2 " /> <id nullFlavor="NA" /> <code codeSystem="local" code="751 -8" displayName="Blood neutrophils automated count (number/volume)" /> <statusCode code="completed" /> <effectiveTime value="192216312252" /> <value unit="10*3" xsi:type="PQ" value="3.8" /> < referenceRange> <observationRange> <text>1.8-7.8</text> </observationRange> </referenceRange> </observation > </component> <component> <observation moodCode="EVN" classCode="OBS"> <templateId root="2.16.840.1.177419.10.22.4.2" /> <id nullFlavor="NA" /> <code codeSystem="local" code="731-0" displayName="Blood lymphocytes automated count (number/volume)" /> < statusCode code="completed" /> <effectiveTime value="592573174990" /> <value unit="10*3" xsi:type="PQ" value="1.8" /> < referenceRange> <observationRange> <text>1.0-4.0</text> </observationRange> </referenceRange> </observation > </component> <component> <observation moodCode="EVN" classCode="OBS"> <templateId root="2.16.840.1.119110.10..22.4.2" /> <id nullFlavor="NA" /> <code codeSystem="local" code="742-7" displayName="Blood monocytes automated count (number/volume)" /> < statusCode code="completed" /> <effectiveTime value="030263627200" /> <value unit="10*3" xsi:type="PQ" value="0.5" /> < referenceRange> <observationRange> <text>0.0-1.0</text> </observationRange> </referenceRange> </observation > </component> <component> <observation moodCode="EVN" classCode="OBS"> <templateId root="216.840.1.515301.08.05.22.4.2" /> <id nullFlavor="NA" /> <code codeSystem="local" code="711-2" displayName="Automated eosinophil count" /> <statusCode code="completed " /> <effectiveTime value="230370406121" /> <value unit="10*3/ uL" xsi:type="PQ" value="0.2" /> <referenceRange> < observationRange> <text>0.0-0.3</text> </ observationRange> </referenceRange> </observation> </ component> <component> <observation moodCode="EVN" classCode="OBS"> <templateId root="2.16.840.1.115659.10.22.4.2" /> <id nullFlavor="NA" /> <code codeSystem="local" code="704-7" displayName= "Automated blood basophil count (count/volume)" /> <statusCode code= "completed" /> <effectiveTime value="788493633473" /> <value unit="10*3/uL" xsi:type="PQ" value="0.0" /> <referenceRange> <observationRange> <text>0.0-0.1</text> </ observationRange> </referenceRange> </observation> </ component> </organizer> </entry> <entry> <organizer moodCode="EVN" classCode="BATTERY"> <templateId root="216.840.1.303952.10.20.22.4.1" /> <id nullFlavor="NA" /> <code codeSystem="local" code="76505-2" displayName="Comprehensive metabolic panel" /> <statusCode code="completed " /> <component> <observation moodCode="EVN" classCode="OBS"> <templateId root="2.16.840.1.975739.10..22.4.2" /> <id nullFlavor ="NA" /> <code codeSystem="local" code="2951-2" displayName="Serum or plasma sodium measurement (moles/volume)" /> <statusCode code= "completed" /> <effectiveTime value="280761570335" /> <value unit="mmol/L" xsi:type="PQ" value="140" /> <referenceRange> <observationRange> <text>135-145</text> </ observationRange> </referenceRange> </observation> </ component> <component> <observation moodCode="EVN" classCode="OBS"> <templateId root="2.16.840.1.008730.10..22.4.2" /> <id nullFlavor="NA" /> <code codeSystem="local" code="2823-3" displayName= "Serum or plasma potassium measurement (moles/volume)" /> <statusCode code="completed" /> <effectiveTime value="579974922874" /> < value unit="mmol/L" xsi:type="PQ" value="3.9" /> <referenceRange> <observationRange> <text>3.6-5.0</text> </ observationRange> </referenceRange> </observation> </ component> <component> <observation moodCode="EVN" classCode="OBS"> <templateId root="216.840.1.991887.10..22.4.2" /> <id nullFlavor="NA" /> <code codeSystem="local" code="" displayName= "Serum or plasma chloride measurement (moles/volume)" /> <statusCode code="completed" /> <effectiveTime value="396409690529" /> < value unit="mmol/L" xsi:type="PQ" value="107" /> <referenceRange> <observationRange> <text>98-107</text> </ observationRange> </referenceRange> </observation> </ component> <component> <observation moodCode="EVN" classCode="OBS"> <templateId root="216.840.1.661427.10..4.2" /> <id nullFlavor="NA" /> <code codeSystem="local" code="2028-06" displayName= "Carbon dioxide" /> <statusCode code="completed" /> < effectiveTime value="178499395812" /> <value unit="mmol/L" xsi:type="PQ " value="23" /> <referenceRange> <observationRange> <text>21-32</text> </observationRange> </ referenceRange> </observation> </component> <component> <observation moodCode="EVN" classCode="OBS"> <templateId root= "2.16.840.1.474216.10..22.4.2" /> <id nullFlavor="NA" /> < code codeSystem="local" code="48295-5" displayName="Serum or plasma anion gap determination (moles/volume)" /> <statusCode code="completed" /> <effectiveTime value="721155498148" /> <value unit="mmol/L" xsi: type="PQ" value="10" /> <referenceRange> <observationRange> <text>5-14</text> </observationRange> </ referenceRange> </observation> </component> <component> <observation moodCode="EVN" classCode="OBS"> <templateId root= "2.16.840.1.648346.10.20.22.4.2" /> <id nullFlavor="NA" /> < code codeSystem="local" code="3094-0" displayName="Serum or plasma urea nitrogen measurement (mass/volume)" /> <statusCode code="completed" /> <effectiveTime value="611287298810" /> <value unit="mg/dL" xsi:type="PQ" value="18" /> <referenceRange> < observationRange> <text>7-18</text> </observationRange> </referenceRange> </observation> </component> < component> <observation moodCode="EVN" classCode="OBS"> < templateId root="2.16.840.1.327401.10.20.22.4.2" /> <id nullFlavor="NA " /> <code codeSystem="local" code="2160-0" displayName="Serum or plasma creatinine measurement (mass/volume)" /> <statusCode code= "completed" /> <effectiveTime value="412141808498" /> <value unit="mg/dL" xsi:type="PQ" value="1.26" /> <referenceRange> <observationRange> <text>0.60-1.30</text> </ observationRange> </referenceRange> </observation> </ component> <component> <observation moodCode="EVN" classCode="OBS"> <templateId root="2.16.840.1.728004.10.20.22.4.2" /> <id nullFlavor="NA" /> <code codeSystem="local" code="3097-3" displayName= "Serum or plasma urea nitrogen/creatinine mass ratio" /> <statusCode code="completed" /> <effectiveTime value="632814723781" /> < value unit="" xsi:type="PQ" value="14" /> <referenceRange> < observationRange> <text>NRG</text> </observationRange> </referenceRange> </observation> </component> < component> <observation moodCode="EVN" classCode="OBS"> < templateId root="2.16.840.1.316570.10..22.4.2" /> <id nullFlavor="NA " /> <code codeSystem="local" code="65031-0" displayName="Serum or plasma creatinine measurement with calculation of estimated glomerular filtration rate" /> <statusCode code="completed" /> < effectiveTime value="916567725186" /> <value unit="" xsi:type="PQ" value="55" /> <referenceRange> <observationRange> <text>NRG</text> </observationRange> </referenceRange> </observation> </component> <component> <observation moodCode="EVN" classCode="OBS"> <templateId root= "2.16.840.1.128856.10.20.22.4.2" /> <id nullFlavor="NA" /> < code codeSystem="local" code="2345-7" displayName="Serum or plasma glucose measurement (mass/volume)" /> <statusCode code="completed" /> <effectiveTime value="629238748126" /> <value unit="mg/dL" xsi:type="PQ " value="100" /> <referenceRange> <observationRange> <text>70-105</text> </observationRange> </ referenceRange> </observation> </component> <component> <observation moodCode="EVN" classCode="OBS"> <templateId root= "2.16.840.1.948146.10.20.22.4.2" /> <id nullFlavor="NA" /> < code codeSystem="local" code="24039-0" displayName="Serum or plasma calcium measurement (mass/volume)" /> <statusCode code="completed" /> <effectiveTime value="054741839997" /> <value unit="mg/dL" xsi:type="PQ " value="9.0" /> <referenceRange> <observationRange> <text>8.5-10.1</text> </observationRange> </ referenceRange> </observation> </component> <component> <observation moodCode="EVN" classCode="OBS"> <templateId root= "2.16.840.1.899307.10..22.4.2" /> <id nullFlavor="NA" /> < code codeSystem="local" code="1974-11" displayName="Serum or plasma total bilirubin measurement (mass/volume)" /> <statusCode code="completed" / > <effectiveTime value="996996950520" /> <value unit="mg/dL" xsi:type="PQ" value="0.8" /> <referenceRange> < observationRange> <text>0.1-1.0</text> </ observationRange> </referenceRange> </observation> </ component> <component> <observation moodCode="EVN" classCode="OBS"> <templateId root="2.16.840.1.038139.10.20.22.4.2" /> <id nullFlavor="NA" /> <code codeSystem="local" code="6768-" displayName= "Serum or plasma alkaline phosphatase measurement (enzymatic activity/volume)" / > <statusCode code="completed" /> <effectiveTime value= "090335184320" /> <value unit="U/L" xsi:type="PQ" value="82" /> <referenceRange> <observationRange> <text>40-136</ text> </observationRange> </referenceRange> </ observation> </component> <component> <observation moodCode= "EVN" classCode="OBS"> <templateId root="2.16.840.1.719109.10.20.22.4.2 " /> <id nullFlavor="NA" /> <code codeSystem="local" code= "1920-05" displayName="Serum or plasma aspartate aminotransferase measurement ( enzymatic activity/volume)" /> <statusCode code="completed" /> <effectiveTime value="360441843012" /> <value unit="U/L" xsi:type="PQ " value="22" /> <referenceRange> <observationRange> <text>5-34</text> </observationRange> </referenceRange > </observation> </component> <component> <observation moodCode="EVN" classCode="OBS"> <templateId root= "2.16.840.1.779531.10.20.22.4.2" /> <id nullFlavor="NA" /> < code codeSystem="local" code="1742-03" displayName="Serum or plasma alanine aminotransferase measurement (enzymatic activity/volume)" /> < statusCode code="completed" /> <effectiveTime value="439293945264" /> <value unit="U/L" xsi:type="PQ" value="22" /> <referenceRange > <observationRange> <text>0-55</text> </ observationRange> </referenceRange> </observation> </ component> <component> <observation moodCode="EVN" classCode="OBS"> <templateId root="2.16.840.1.225794.10.20.22.4.2" /> <id nullFlavor="NA" /> <code codeSystem="local" code="2885-2" displayName= "Serum or plasma protein measurement (mass/volume)" /> <statusCode code ="completed" /> <effectiveTime value="987720699641" /> <value unit="g/dL" xsi:type="PQ" value="6.9" /> <referenceRange> < observationRange> <text>6.4-8.2</text> </ observationRange> </referenceRange> </observation> </ component> <component> <observation moodCode="EVN" classCode="OBS"> <templateId root="2.16.840.1.905924.10..22.4.2" /> <id nullFlavor="NA" /> <code codeSystem="local" code="1751-7" displayName= "Serum or plasma albumin measurement (mass/volume)" /> <statusCode code ="completed" /> <effectiveTime value="890857203775" /> <value unit="g/dL" xsi:type="PQ" value="3.9" /> <referenceRange> < observationRange> <text>3.2-4.5</text> </ observationRange> </referenceRange> </observation> </ component> </organizer> </entry> <entry> <organizer moodCode="EVN" classCode="BATTERY"> <templateId root="2.16.840.1.322076.10..22.4.1" /> <id nullFlavor="NA" /> <code codeSystem="local" code="TSH" displayName ="THYROID STIMULATING HORMONE" /> <statusCode code="completed" /> < component> <observation moodCode="EVN" classCode="OBS"> < templateId root="2.16.840.1.262100.10.20.22.4.2" /> <id nullFlavor="NA " /> <code codeSystem="local" code="TSH" displayName="THYROID STIMULATING HORMONE" /> <statusCode code="completed" /> < effectiveTime value="311666835656" /> <value unit="u[iU]/mL" xsi:type= "PQ" value="1.80" /> <referenceRange> <observationRange> <text>0.35-4.94</text> </observationRange> </ referenceRange> </observation> </component> </organizer> </entry > <entry> <organizer moodCode="EVN" classCode="BATTERY"> <templateId root="2.16.840.1.817998.10.20.22.4.1" /> <id nullFlavor="NA" /> <code codeSystem="local" code="2986-8" displayName="Serum or plasma testosterone measurement (mass/volume)" /> <statusCode code="completed" /> < component> <observation moodCode="EVN" classCode="OBS"> < templateId root="2.16.840.1.292347.10.20.22.4.2" /> <id nullFlavor="NA " /> <code codeSystem="local" code="17639-3" displayName="Testosterone [mass or moles/volume] in serum or plasma" /> <statusCode code= "completed" /> <effectiveTime value="846184490299" /> <value unit="%" xsi:type="PQ" value="196" /> <interpretationCode codeSystem="local" code="" /> <referenceRange> < observationRange> <text>241-827</text> </ observationRange> </referenceRange> </observation> </ component> </organizer> </entry> <entry> <organizer moodCode="EVN" classCode="BATTERY"> <templateId root="2.16.840.1.771480.10..22.4.1" /> <id nullFlavor="NA" /> <code codeSystem="local" code="GAG9568" displayName="[id number]" /> <statusCode code="completed" /> <component> <observation moodCode="EVN" classCode="OBS"> <templateId root= "2.16.840.1.071064.10..22.4.2" /> <id nullFlavor="NA" /> < code codeSystem="local" code="3094-0" displayName="Serum or plasma urea nitrogen measurement (mass/volume)" /> <statusCode code="completed" /> <effectiveTime value="244016732164" /> <value unit="mg/dL" xsi:type="PQ" value="18" /> <referenceRange> < observationRange> <text>7-18</text> </observationRange> </referenceRange> </observation> </component> < component> <observation moodCode="EVN" classCode="OBS"> < templateId root="2.16.840.1.772881.10..22.4.2" /> <id nullFlavor="NA " /> <code codeSystem="local" code="2160-0" displayName="Serum or plasma creatinine measurement (mass/volume)" /> <statusCode code= "completed" /> <effectiveTime value="" /> <value unit="mg/dL" xsi:type="PQ" value="1.21" /> <referenceRange> <observationRange> <text>0.60-1.30</text> </ observationRange> </referenceRange> </observation> </ component> <component> <observation moodCode="EVN" classCode="OBS"> <templateId root="2.16.840.1.664164.10.20.22.4.2" /> <id nullFlavor="NA" /> <code codeSystem="local" code="3097-3" displayName= "Serum or plasma urea nitrogen/creatinine mass ratio" /> <statusCode code="completed" /> <effectiveTime value="821085199452" /> < value unit="" xsi:type="PQ" value="15" /> <referenceRange> < observationRange> <text>NRG</text> </observationRange> </referenceRange> </observation> </component> < component> <observation moodCode="EVN" classCode="OBS"> < templateId root="2.16.840.1.574248.10.20.22.4.2" /> <id nullFlavor="NA " /> <code codeSystem="local" code="88733-5" displayName="Serum or plasma creatinine measurement with calculation of estimated glomerular filtration rate" /> <statusCode code="completed" /> < effectiveTime value="972484880838" /> <value unit="" xsi:type="PQ" value="58" /> <referenceRange> <observationRange> <text>NRG</text> </observationRange> </referenceRange> </observation> </component> </organizer> </entry></section> Encounters ACCT No. Visit Date/Time Discharge Status Pt. Type Provider Facility Loc./Unit Complaint [id number] 10/20/2017 05:38:00 10/20/2017 23:59:59 CLS Outpatient WALI SALAZAR DO [facility] PREOP EGD [id number] 03/22/2017 07:53:00 03/22/2017 23:59:59 CLS Outpatient KOURTNEY NANCE [facility] LAB CONTRAST PROTOCOL [id number] 03/22/2017 07:48:00 03/22/2017 23:59:59 CLS Outpatient MILES HOLLAND PA-C [facility] RAD INF RENAL ANEURYSM [id number] 01/07/2017 10:14:00 01/07/2017 23:59:59 CLS Outpatient MILES HOLLAND PA-C [facility] RAD AAA,LE PAD [id number] 01/04/2017 09:21:00 01/04/2017 23:59:59 CLS Outpatient GARCIA KRAFT APRN [facility] LAB AAA,PAD [id number] 04/07/2016 08:49:00 04/07/2016 23:59:59 CLS Outpatient ESPERANZA ORDONEZ, LORENA Angelo [facility] RAD N28.1 [id number] 11/27/2015 14:16:00 11/29/2015 13:50:00 DIS Inpatient NOVA ORDONEZ, DAPHNE Pollock [facility] 4TH WEAKNESS,ANEMIA, HYPOXEMIA [id number] 06/11/2015 08:27:00 06/11/2015 13:50:00 DIS Outpatient EMILEE LEUNG MD [facility] SDC [id number] 06/09/2015 10:24:00 06/09/2015 23:59:59 CLS Outpatient EMILEE LEUNG MD [facility] PREOP [id number] 05/27/2015 15:13:00 05/27/2015 23:59:59 CLS Outpatient MADISON CARL [facility] RAD [id number] 09/13/2014 09:07:00 09/13/2014 14:36:00 DIS Emergency MARIA E ORDONEZ, AMELIE Adler [facility] ER [id number] 05/06/2014 15:10:00 05/06/2014 23:59:59 CLS Outpatient FRANCISCO ORDONEZ, DOUG Payan [facility] RAD [id number] 10/25/2017 11:15:00 PEN Preadmit WALI SALAZAR DO [facility] ENDO DYSPHAGIA [id number] 12/11/2014 10:40:00 Document Registration [id number] 12/29/2016 14:00:00 12/29/2016 14:00:00 DIS Outpatient Jim ORDONEZ, Bhavin Arriola [facility] ER E.RAC [id number] 05/03/2016 05:52:00 05/03/2016 13:50:00 DIS Outpatient Stacie ORDONEZ, Warner Morales [facility] & ER E.CVLO [id number] 11/29/2015 15:25:00 12/03/2015 12:03:00 DIS Inpatient Brandyn ORDONEZ, [facility] ER E.T4 [id number] 11/17/2015 11:06:00 11/19/2015 14:32:00 DIS Inpatient Renetta ORDONEZ, Shun Pollock [facility] & ER E.T2
[2017-10-25] MEDS ORDERED: LACTATED RINGERS 1,000 ML IV STA (09:29)
[2017-10-25 09:47] VITALS: BP 131/88
[2017-10-25] MEDS ORDERED: proPOfol 200 MG/20 ML (DIPRIVAN) VIAL IV ONE (10:30)
--- NOTE | 2017-10-25 11:04 | Progress Note-Pre Operative ---
Pre-Operative Progress Note H&P Reviewed The H&P was reviewed, patient examined and no changes noted. Date Seen by Provider: Oct 25, 2017 Time Seen by Provider: 11:03 Date H&P Reviewed: Oct 25, 2017 Time H&P Reviewed: 11:03 Pre-Operative Diagnosis: dysphagia WALI SALAZAR DO Oct 25, 2017 11:04
--- NOTE | 2017-10-25 11:18 | Progress Note-Post Operative ---
Post-Operative Progess Note Surgeon (s)/Dietary Supervisor (s) Surgeon WALI SALAZAR DO Dietary Supervisor: na Pre-Operative Diagnosis dysphagia Post-Operative Diagnosis hiatal hernia, reflux esophagitis Procedure & Operative Findings Date of Procedure 10/25/17 Procedure Performed/Findings egd c biopsies Anesthesia Type per mda Estimated Blood Loss Estimated blood loss (mL): none Specimens/Packing Specimens Removed antrum, ge WALI SALAZAR DO Oct 25, 2017 11:18
[2017-10-25] MEDS ORDERED: SUCR1TAB36 PO (11:19)
[2017-10-25] MEDS ORDERED: HURRICAINE EXT TUBE (BENZOCAINE) XX ONE (11:30)
[2017-10-25 11:35] VITALS: BP 129/82
[2017-10-25 12:05] VITALS: BP 130/84
[2017-10-25 12:15] VITALS: BP 130/84
--- NOTE | 2017-10-25 23:06 | OPERATIVE REPORT ---
DATE OF SERVICE: 10/25/2017 PREOPERATIVE DIAGNOSIS: Dysphagia. POSTOPERATIVE DIAGNOSES: Hiatal hernia, reflux esophagitis. PROCEDURE: EDG with biopsies. ANESTHESIA: Per MDA. ESTIMATED BLOOD LOSS: None. SURGEON: Wali Kumar DO. INDICATIONS: The patient is an 82-year-old male, who has been having some episodes of dysphagia. He was recommended to have EGD performed. He understands risks and benefits and wished to proceed with procedure. Consent was signed and in the chart. PROCEDURE: The patient was taken to the endoscopy suite, placed in the left lateral recumbent position. Timeout was performed. Scope was inserted in mouth, down the esophagus, stomach and into the duodenum without difficulty. There were no polyps, masses or ulcerations within the duodenum. The scope was slowly retracted back into the stomach where it was further insufflated. Normal appearance of the gastric mucosa. Biopsy of the antrum was obtained. Scope was then retroflexed noting a hiatal hernia. No other pathology noted. Scope was returned to its normal position, slowly withdrawn to the distal esophagus, which has some appearance of reflux esophagitis. Biopsy of the GE junction was obtained. The scope was slowly retracted back noting no other pathology. The patient tolerated procedure well without any complications and was taken to recovery room in stable condition. RECOMMENDATIONS: The patient will follow up on pathology in approximately two to three weeks. He is already on Protonix. We will add some Carafate to see if he has any further improvement of his symptoms. Job ID: [id number] DocumentID: [id number] Dictated Date: 10/25/2017 11:23:48 Hunting Guide Date: 10/25/2017 23:05:16 Dictated By: WALI KUMAR DO
== END 2017-10-25 12:15 | disposition home or self-care (01) ==
LOC: ENDO 09:13
PROVIDERS: ATTEND Surgery
DX: K21.0 Gastro-esophageal reflux disease with esophagitis (principal); K44.9 Diaphragmatic hernia without obstruction or gangrene; I25.10 Atherosclerotic heart disease of native coronary artery without angina pectoris; I10 Essential (primary) hypertension; E78.5 Hyperlipidemia, unspecified; G47.33 Obstructive sleep apnea (adult) (pediatric); F32.9 Major depressive disorder, single episode, unspecified; F41.9 Anxiety disorder, unspecified; Z79.2 Long term (current) use of antibiotics; Z79.899 Other long term (current) drug therapy; Z95.5 Presence of coronary angioplasty implant and graft

== ENCOUNTER → 2017-11-10 | Outpatient (CLI) | payer MEDICARE ==
[~2017-11-10] MED LIST changes: +SUCR1TAB36 PO
--- NOTE | 2017-11-10 16:32 | Diagnostic Imaging Report ---
INDICATION: Bilateral hearing loss. FINDINGS: The external auditory canals are unremarkable. The mastoids are well aerated. Tympanic membranes are not thickened. There is no evidence of erosion of the scutum. Middle ear cavity demonstrates ossicles bilaterally to be unremarkable. Inner ear demonstrates IAC to be unremarkable. The vestibule and semicircular canals are unremarkable. There appear to be normal turns of the cochlea. There does appear to be significant aneurysmal dilatation of the basilar artery measuring approximately 2.0 cm AP x 3.3 cm transverse. IMPRESSION: 1. Unremarkable CT of the IACs. 2. 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 Correlation with CT angiography would be useful if not already performed. Dictated by: Dictated on workstation # [id number]
== END ==
LOC: RAD 11:19
PROVIDERS: ATTEND Otolaryngology
DX: R93.8 Abnormal findings on diagnostic imaging of other specified body structures (principal); H91.93 Unspecified hearing loss, bilateral
CPT/HCPCS: 70480

== ENCOUNTER → 2017-11-16 | Outpatient (CLI) | payer MEDICARE ==
[~2017-11-16] MED LIST changes: +HYDR-34 PO; -HYDR-3816 PO
[2017-11-16 10:33] LABS: CREATININE SERUM 1.23 MG/DL (0.60-1.30)
== END ==
LOC: LAB 09:55
PROVIDERS: ATTEND Family Medicine
DX: I10 Essential (primary) hypertension (principal)
CPT/HCPCS: 36415; 82565; 84520

== ENCOUNTER → 2017-11-16 | Outpatient (CLI) | payer MEDICARE ==
[~2017-11-16] MED LIST changes: +GADOBUTROL 10 MMOL/10 ML (GADAVIST) VIAL IV ONE
--- NOTE | 2017-11-16 15:00 | Diagnostic Imaging Report ---
MRI BRAIN IAC W/WO CONTRAST TECHNIQUE: Pre and postcontrast imaging of the brain was performed. High-resolution imaging of the temporal bones was also performed. INDICATION: Hearing loss. COMPARISON: CT of the temporal bones from 11/10/[address] head from 10/12/2010. FINDINGS: Right IAC: The cisternal portion of the sixth and seventh cranial nerves is normal. There is no abnormal mass in the cerebellopontine angle. The cochlea has normal morphology. The semicircular canals are also normal in appearance. No fluid within the mastoid air cells. 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 At the junction of the left intracranial vertebral artery and ectatic basilar artery, the vessel courses very near to the cisternal portions of the cranial nerves VII and VIII but does not appear to have mass effect upon them. There is no additional CP angle mass. The cochlea and semicircular canals have normal morphology. The cisternal portion of the left trigeminal nerve is contacted by the basilar artery aneurysm. Whole brain imaging: No restricted diffusion to indicate acute infarct. No hydrocephalus or intraparenchymal mass. Global atrophy is present. Periventricular T2/FLAIR hyperintensities in the white matter are compatible with chronic microvascular ischemic disease. Besides the enhancing basilar artery aneurysm, there is no pathologic intracranial enhancement. No abnormal extra-axial fluid collection. No gradient blooming hypointensities to indicate intracranial hemorrhage. IMPRESSION: 1. 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 This aneurysm has increased in size since CT head of 11/12/2009. 2. No structural abnormality of the inner ear on either side. Dictated by: Dictated on workstation # [id number]
== END ==
LOC: RAD 09:57
PROVIDERS: ATTEND Otolaryngology
DX: I67.1 Cerebral aneurysm, nonruptured (principal); H91.93 Unspecified hearing loss, bilateral
CPT/HCPCS: 70553

== ENCOUNTER → 2018-10-20 | Outpatient (CLI) | payer MEDICARE ==
[~2018-10-20] MED LIST changes: -AMLO5TAB2 PO; +AMLO5TAB7 PO; -CITA20TA7 PO; +CITA20TA9 PO; +CLON1TAB13 PO; -CLON1TAB3 PO; -DUTA0.5C14 PO; +DUTA0.5C16 PO; -GADOBUTROL 10 MMOL/10 ML (GADAVIST) VIAL IV ONE; -LOSA25TA21 PO; +LOSA25TA6 PO; -LOSA50TA36 PO; +LOSA50TA7 PO; -SPIR25TA3 PO; +SPIR25TA5 PO
== END ==
LOC: CARD 10:44
PROVIDERS: ATTEND Family Medicine
DX: I10 Essential (primary) hypertension (principal); I25.10 Atherosclerotic heart disease of native coronary artery without angina pectoris; H91.10 Presbycusis, unspecified ear
CPT/HCPCS: 93005

== ENCOUNTER → 2018-11-27 | Outpatient (CLI) | payer MEDICARE ==
[~2018-11-27] MED LIST changes: -AMLO5TAB7 PO; +AMLO5TAB9 PO; +LOSA25TA41 PO; -LOSA25TA6 PO; +LOSA50TA63 PO; -LOSA50TA7 PO
[2018-11-27 14:29] LABS: BASOPHILS % (AUTO) 0 % (0-10); EOSINOPHILS # (AUTO) 0.2 10^3/uL (0.0-0.3); EOSINOPHILS % (AUTO) 3 % (0-10); HEMATOCRIT 42 % (40-54); HEMOGLOBIN 14.9 G/DL (13.3-17.7); LYMPHOCYTES # (AUTO) 2.1 X 10^3 (1.0-4.0); LYMPHOCYTES % (AUTO) 28 % (12-44); MEAN CORPUSCULAR HEMOGLOBIN 31 PG (25-34); MEAN CORPUSCULAR HGB CONC 35 G/DL (32-36); MEAN CORPUSCULAR VOLUME 88 FL (80-99); MEAN PLATELET VOLUME 9.9 FL (7.4-10.4); MONOCYTES # (AUTO) 0.6 X 10^3 (0.0-1.0); MONOCYTES % (AUTO) 8 % (0-12); NEUTROPHILS # (AUTO) 4.6 X 10^3 (1.8-7.8); NEUTROPHILS % (AUTO) 61 % (42-75); PLATELET COUNT 238 10^3/uL (130-400); RED CELL DISTRIBUTION WIDTH 14.7 % (10.0-14.5); WHITE BLOOD COUNT 7.5 10^3/uL (4.3-11.0)
[2018-11-27 14:48] LABS: ALANINE AMINOTRANSFERASE 20 U/L (0-55); ALBUMIN 4.1 GM/DL (3.2-4.5); ALKALINE PHOSPHATASE 78 U/L (40-136); BILIRUBIN,TOTAL 1.4 MG/DL (0.1-1.0); BUN/CREATININE RATIO 14; CALCIUM 9.5 MG/DL (8.5-10.1); CARBON DIOXIDE 20 MMOL/L (21-32); CHLORIDE 109 MMOL/L (98-107); CREATINE KINASE 92 U/L (30-200); GFR ESTIMATED > 60; GLUCOSE 117 MG/DL (70-105); POTASSIUM 3.5 MMOL/L (3.6-5.0); SODIUM 141 MMOL/L (135-145)
[2018-11-27 15:07] LABS: TSH (THYROID ANALYZER) 0.98 UIU/ML (0.35-4.94)
== END ==
LOC: CARD 14:11
PROVIDERS: ATTEND Nurse Practitioner Family
DX: R06.02 Shortness of breath (principal); I25.10 Atherosclerotic heart disease of native coronary artery without angina pectoris; R42 Dizziness and giddiness
CPT/HCPCS: 36415; 80053; 82550; 84443; 84484; 85025

== ENCOUNTER 2018-12-19 12:09 | Observation (INO) | payer MEDICARE ==
[~2018-12-19] VITALS: Ht 182.9 cm; Wt 95.9 kg
--- OUTSIDE RECORDS SUMMARY | 2018-12-19 12:18 | XMS REPORT | Encounter Summary ---
Author Author [facility] Organization [facility] Address Unknown Phone Unavailable Care Team Providers Care Clinical Informatics Educator Name Role Phone Michael Velasquez MD Unavailable Lesley Butcher MD PCP Reason for Visit * Auth/Cert Referred By Contact Referred To Contact Status Reason Specialty Diagnoses / Procedures Diagnoses Cochlear implant follow-up Bilateral hearing loss, unspecified hearing loss type Inactive Meniere's disease of both ears Cochlear implant follow-up [Z48.89, Z96.21] Bilateral hearing loss, unspecified hearing loss type [H91.93] Inactive Meniere's disease of both ears [H81.03] P rocedures [place] ADJT TIS TRNSFR/REARRGMT E/N/E/L DFCT 10 SQ CM/< [place] ADJT TIS TRNSFR/REARRGMT E/N/E/L DFCT 10 SQ CM/< ADJACENT TISSUE TRANSFER PEDICLE FLAP (THINNING OF SCALP ABOVE MAGNET) Encounter Details Care Team Description Date Type Department Yung Moreno MD [address] [facility] [address] [id number] ADJACENT TISSUE TRANSFER PEDICLE FLAP (THINNING OF SCALP ABOVE MAGNET) 11/03/2018 Surgery [facility] [address] [place] [address] Social History Date Tobacco Use Types Packs/Day Years Used Never Smoker Smokeless Tobacco: Never Used Alcohol Use Drinks/Week oz/Week Comments Yes 1 Cans of 12.0 beer Sex Assigned at Date Recorded Not on file Industry Job Start Date Occupation Not on file Not on file Not on file Travel End Travel History Travel Start No recent travel history available. as of this encounter Last Filed Vital Signs Time Taken Vital Sign Reading 11/03/2018 11:45 AM FILTER PRESS OPERATOR Blood Pressure 118/93 11/03/2018 11:45 AM FILTER PRESS OPERATOR Pulse 89 11/03/2018 11:45 AM FILTER PRESS OPERATOR Temperature 37.2 C (99 F) - Respiratory Rate - 11/03/2018 11:45 AM FILTER PRESS OPERATOR Oxygen Saturation 93% - Inhaled Oxygen - Concentration 11/03/2018 7:42 AM FILTER PRESS OPERATOR Weight 97.1 kg (214 lb) 11/03/2018 7:42 AM FILTER PRESS OPERATOR Height 182.9 cm (6') 11/03/2018 7:42 AM FILTER PRESS OPERATOR Body Mass Index 29.02 in this encounter Medications at Time of Discharge Start Date End Date Medication Sig Dispensed Refills allopurinol (ZYLOPRIM) Take 100 mg 0 100 mg tablet by mouth daily. Take with food. atorvastatin (LIPITOR) 40 Take 40 mg by 0 mg tablet mouth daily. carvedilol (COREG) 12.5 Take 12.5 mg 0 mg tablet by mouth Twice Daily With Meals. cholecalciferol (VITAMIN Take 1,000 0 D) 1,000 units tablet Units by mouth daily. citalopram (CELEXA) 10 mg Take 10 mg by 0 tablet mouth Daily. clonazePAM (KLONOPIN) 1 Take 1 mg by 0 mg tablet mouth twice daily. 11/04/2018 clopiDOGrel (PLAVIX) 75 Take one 0 mg tablet tablet by mouth daily. dexamethasone (DECADRON) Take 0.5 mg 0 0.5 mg tablet by mouth twice daily. DOCOSAHEXANOIC ACID/EPA Take 3 Tabs 0 (FISH OIL PO) by mouth Daily. 11/03/2018 docusate (COLACE) 100 mg Take one 60 capsule 0 capsule capsule by mouth twice daily. 11/03/2018 HYDROcodone/acetaminophen Take one 10 tablet 0 (NORCO) 5/325 mg tablet tablet by mouth every 4 hours as needed for Pain Earliest Fill Date: 11/03/18 losartan (COZAAR) 50 mg Take 50 mg by 0 tablet mouth daily. MULTIVITAMINS Take 1 Tab by 0 (MULTI-VITAMIN PO) mouth Daily. spironolactone Take 25 mg by 0 (ALDACTONE) 25 mg tablet mouth Daily. tamsulosin (FLOMAX) 0.4 Take 0.4 mg 0 mg capsule by mouth daily. Do not crush, chew or open capsules. Take 30 minutes following the same meal each day. vitamin B complex (B Take by 0 COMPLEX-VITAMIN B12 PO) mouth. 11/03/2018 11/10/2018 cephalexin (KEFLEX) 500 Take one 21 capsule 0 mg capsule capsule by mouth three times daily for 7 days. as of this encounter Plan of Treatment Not on fileas of this encounter Procedures Comments Procedure Name Priority Date/Time Associated Diagnosis ADJACENT TISSUE TRANSFER 11/03/2018 Cochlear implant PEDICLE FLAP DEFECT 10 SQ 9:50 AM FILTER PRESS OPERATOR follow-up CM OR LESS - LOWER Bilateral hearing loss, EXTREMITY unspecified hearing loss type Inactive Meniere's disease of both ears TELEMETRY STRIPS-SCAN 11/03/2018 12:00 AM FILTER PRESS OPERATOR ECG-SCAN 11/03/2018 12:00 AM FILTER PRESS OPERATOR in this encounter Results * ECG-SCAN (11/03/2018 12:00 AM FILTER PRESS OPERATOR) Narrative Performed At Ordered by an unspecified provider. * TELEMETRY STRIPS-SCAN (11/03/2018 12:00 AM FILTER PRESS OPERATOR) Narrative Performed At Ordered by an unspecified provider. in this encounter Visit Diagnoses Diagnosis Cochlear implant follow-up Other specified aftercare following surgery Bilateral hearing loss, unspecified hearing loss type Inactive Meniere's disease of both ears in this encounter Administered Medications Action Date Dose Rate Site Medication Order MAR Action 11/03/2018 12:09 PM FILTER PRESS OPERATOR 650 mg acetaminophen (TYLENOL) tablet 650 mg Given 650 mg, Oral, EVERY 4 HOURS PRN, Starting Tue11/03/18 at 1200, Until Tue11/03/18 at 1429, Pain non-opioid: may be used alone or in combination with opioid analgesia, TOTAL ACETAMINOPHEN DOSE NOT TO EXCEED 4GM DAILY, 11/03/2018 10:09 AM FILTER PRESS OPERATOR 1,000 mg ceFAZolin (ANCEF) injection Given INTRA-PROCEDURE MED, Starting Tue11/03/18 at 1009, Until Tue11/03/18 at 1047, Intra-op fentaNYL citrate PF (SUBLIMAZE) injection 12.5 mcg 12.5 mcg, Intravenous, EVERY 5 MIN PRN, Starting Tue11/03/18 at 1030, Until Tue11/03/18 at 1429, Pain Injectable, For Pain Score < 4, Maximum total dose of 200 mcg Hold for RR < 10, PACU (only) fentaNYL citrate PF (SUBLIMAZE) injection 25 mcg 25 mcg, Intravenous, EVERY 5 MIN PRN, Starting Tue11/03/18 at 1030, Until Tue11/03/18 at 1429, Pain Injectable, For Pain Score 7-10, Maximum total dose of 200 mcg Hold for RR < 10, PACU (only) fentaNYL citrate PF (SUBLIMAZE) injection 25 mcg 25 mcg, Intravenous, EVERY 5 MIN PRN, Starting Tue11/03/18 at 1030, Until Tue11/03/18 at 1429, Pain Injectable, For Pain Score 4-6, Maximum total dose 200 mcg Hold if RR < 10, PACU (only) haloperidol (HALDOL) injection 1 mg 1 mg, Intravenous, ONCE PRN, 1 dose, Starting Tue11/03/18 at 1030, Until Tue11/03/18 at 1429, Other..., Nausea and Vomiting, First line agent. DO NOT ADMINISTER if given intraoperatively, PACU (only) 11/03/2018 7:58 AM FILTER PRESS OPERATOR 1,000 mL 20 mL/hr lactated ringers infusion Given - New 1,000 mL, 1,000 mL, Intravenous, at 20 Bag mL/hr, CONTINUOUS, Starting Tue11/03/18 at 0730, Until Tue11/03/18 at 1429, Pre-Op LACTATED RINGERS IV SOLP (Cabinet Override) NOW, 1 dose, Tue11/03/18 at 0600, Created by cabinet override, Created by cabinet override, 11/03/2018 10:10 AM FILTER PRESS OPERATOR 9 mL lidocaine 1%/EPINEPHrine 1:100,000 Given injection INTRA-PROCEDURE MED, Starting Tue11/03/18 at 1010, Until Tue11/03/18 at 1047, Intra-op lidocaine PF 1% (10 mg/mL) injection 0.1-2 mL 0.1-2 mL, Injection, NEEDED, Starting Tue11/03/18 at 0716, Until Tue11/03/18 at 1429, Other..., for IV insertion, Pre-Op 11/03/2018 9:00 AM FILTER PRESS OPERATOR 2 mg midazolam (VERSED) oral solution 2 mg Given 2 mg, Oral, ONCE, 1 dose, Tue11/03/18 at 0900, Pre-Op oxyCODONE (ROXICODONE, OXY-IR) tablet 5-10 mg 5-10 mg, Oral, ONCE PRN, 1 dose, Starting Tue11/03/18 at 1030, Until Tue11/03/18 at 1429, Pain PO, For Pain Score <4, PACU (only) promethazine (PHENERGAN) injection 6.25 mg 6.25 mg, Intravenous, EVERY 10 MIN PRN, Starting Tue11/03/18 at 1030, Until Tue11/03/18 at 1429, Other..., nausea/vomiting, Second line agent, give if first line agent ineffective. Give in freely running IV and dilute in 10mL 0.9% sodium chloride. May repeat to total dose of 25 mg from all routes ordered PRN, if no relief in 15 minutes then notify anesthesia physician. PROTECT FROM LIGHT For IV Administration: a. Admin. each dose slowly over at least 5 min. Use lowest effective dose. b. Admin. through a large-bore vein (central venous site preferably). AVOID HAND OR WRIST VEINS UNLESS NO OTHER ALTERNATIVES ARE AVAILABLE. Do NOT administer intra-arterially. c. Check patency of site before admin. Inspect site around catheter tip and extremity for swelling, blanching, bleb formation, stretched and firm skin or coolness. d. Remain in continual contact with the patient during admin. and for 5 minutes following to observe for adverse reactions and monitor injection site. e. Ask patient to report any burning or discomfort during infusion. If extravasation is suspected, stop infusion immediately, implement Extravasation Management Protocol, and notify physician., PACU (only) in this encounter
--- OUTSIDE RECORDS SUMMARY | 2018-12-19 12:18 | XMS REPORT | Encounter Summary ---
Author Author [facility] Organization [facility] Address Unknown Phone Unavailable Care Team Providers Care Airplane First Officer Name Role Phone Michael Velasquez MD Unavailable Lesley Butcher MD PCP Reason for Visit * Reason Comments Post Operative Visit Encounter Details Care Team Description Date Type Department Yung Moreno MD [address] [facility] [address] [place] [address] Inactive Meniere's disease of both ears (Primary Dx) 11/29/2018 Office Visit [facility] - ENT [address] [place] [address] Social History Date Tobacco Use Types Packs/Day [...] Vital Signs Time Taken Vital Sign Reading 11/29/2018 1:29 PM DESKTOP ENGINEER Blood Pressure 116/75 11/29/2018 1:29 PM DESKTOP ENGINEER Pulse 92 - Temperature - - Respiratory Rate - - Oxygen Saturation - - Inhaled Oxygen - Concentration 11/29/2018 1:29 PM DESKTOP ENGINEER Weight 97.1 kg (214 lb) 11/29/2018 1:29 PM DESKTOP ENGINEER Height 182.9 cm (6') 11/29/2018 1:29 PM DESKTOP ENGINEER Body Mass Index 29.02 in this encounter Progress Notes * Yung Moreno MD - 11/29/2018 1:50 PM DESKTOP ENGINEER Date of Service: 11/29/2018 Subjective: Estrada Godoy is a 83 y.o. male. History of Present IllnessLester's magnet is sticking on better now, he does have persistent imbalance, his hearing is also not that greatly improved. Chief Complaint Post Operative Visit PMH, SH, FH, allergies, and medications listed below have been reviewed. History reviewed. No pertinent family history. No Known Allergies Past Surgical History: Procedure Laterality Date COCHLEAR IMPLANT Right 02/24/2018 INSERTION COCHLEAR DEVICE (CPT L8614) performed by Yung Moreno MD at [facility] OR/ Periop TISSUE TRANSFER Right 11/03/2018 ADJACENT TISSUE TRANSFER PEDICLE FLAP (THINNING OF SCALP ABOVE MAGNET) performed by Yung Moreno MD at [facility] OR/Periop CORONARY ANGIOPLASTY x5 HX HEART CATHETERIZATION x8 with stents Social History Socioeconomic History Marital status: Spouse name: Not on file Number of children: Not on file Years of education: Not on file Highest education level: Not on file Social Needs Financial resource strain: Not on file Food insecurity - worry: Not on file Food insecurity - inability: Not on file Transportation needs - medical: Not on file Transportation needs - non-medical: Not on file Occupational History Not on file Tobacco Use Smoking status: Never Smoker Smokeless tobacco: Never Used Substance and Sexual Activity Alcohol use: Yes Alcohol/week: 12.0 oz Types: 1 Cans of beer per week Drug use: No Sexual activity: Not on file Other Topics Concern Not on file Social History Narrative Not on file Review of Systems Constitutional: Negative. HENT: Positive for hearing loss. Eyes: Negative. Respiratory: Negative. Cardiovascular: Negative. Gastrointestinal: Negative. Endocrine: Negative. Genitourinary: Negative. Musculoskeletal: Negative. Skin: Negative. Allergic/Immunologic: Negative. Neurological: Negative. Hematological: Negative. Psychiatric/Behavioral: Negative. Objective: allopurinol (ZYLOPRIM) 100 mg tablet Take 100 mg by mouth daily. Take with food. atorvastatin (LIPITOR) 40 mg tablet Take 40 mg by mouth daily. carvedilol (COREG) 12.5 mg tablet Take 12.5 mg by mouth Twice Daily With Meals. cholecalciferol (VITAMIN D) 1,000 units tablet Take 1,000 Units by mouth daily. citalopram (CELEXA) 10 mg tablet Take 10 mg by mouth Daily. clonazePAM (KLONOPIN) 1 mg tablet Take 1 mg by mouth twice daily. clopiDOGrel (PLAVIX) 75 mg tablet Take one tablet by mouth daily. dexamethasone (DECADRON) 0.5 mg tablet Take 0.5 mg by mouth twice daily. DOCOSAHEXANOIC ACID/EPA (FISH OIL PO) Take 3 Tabs by mouth Daily. docusate (COLACE) 100 mg capsule Take one capsule by mouth twice daily. HYDROcodone/acetaminophen (NORCO) 5/325 mg tablet Take one tablet by mouth every 4 hours as needed for Pain Earliest Fill Date: 11/03/18 losartan (COZAAR) 50 mg tablet Take 50 mg by mouth daily. MULTIVITAMINS (MULTI-VITAMIN PO) Take 1 Tab by mouth Daily. spironolactone (ALDACTONE) 25 mg tablet Take 25 mg by mouth Daily. tamsulosin (FLOMAX) 0.4 mg capsule Take 0.4 mg by mouth daily. Do not crush , chew or open capsules. Take 30 minutes following the same meal each day. vitamin B complex (B COMPLEX-VITAMIN B12 PO) Take by mouth. Vitals: 11/29/18 1329 Weight: 97.1 kg (214 lb) Height: 182.9 cm (72") Body mass index is 29.02 kg/m. Physical Exam Exam today reveals a well-healing incision around the magnet site. He has got the implant on. His eardrums look normal. Neat Appearance: Yes Oral Communication: Yes Clear Voice: Yes Neuro: Left: Right: CN VII 1/6 1/6 CN 3,4,5,6 nl nl CN 9,10,11,12 nl nl Hearing grossly intact Normal respiratory effort No abdominal tenderness Head/Face lesions? N Ext ear/nose lesions? N Spont Nyst N Gaze Nystagmus N Affect Abnormal N Edema/extremity changes? N EOM restriction? N Orientation Abn N Assessment and Plan: Estrada's magnet is sticking on better now, he does have persistent imbalance, his hearing is also not that greatly improved. Exam today reveals a well-healing incision around the magnet site. He has got the implant on. His eardrums look normal. He is status post right cochlear implant, about 9 months out. He had improvement greatly on initial activation, this has not progressed and in fact may have actually regressed. 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 He has undergone fairly aggressive physical therapy for this, he still feels lightheaded and has issues with bending over. I have asked him to continue his vestibular exercises at home as prescribed by his therapist. I am going to have a long discussion with Martha regarding what to do about his implant and why we believe it may have stalled, I will need a CAT scan of his temporal bones to look at at some point in time. I will have him return in about 4-6 months or sooner if needed. In the presence of Yung Moreno MD, I have taken down these notes, Violeta Becerril Scribe. 11/29/2018 2:07 PM TOP ENGINEER in this encounter Plan of Treatment Not on fileas of this encounter Visit Diagnoses Diagnosis Inactive Meniere's disease of both ears - Primary in this encounter
--- OUTSIDE RECORDS SUMMARY | 2018-12-19 12:18 | XMS REPORT | Clinical Summary ---
Author Author [facility] Organization [facility] Address Unknown Phone Unavailable Care Team Providers Care Pocket Setter Name Role Phone Michael Velasquez MD Unavailable Lesley Butcher MD PCP Source Comments Some departments are not documenting in the electronic medical record. If you do not see the information that you expected, contact Release of Information in the Health Information Management department at [phone] for further assistance in locating additional records.[facility] Allergies No Known Allergies Medications End Date Status Medication Sig Dispensed Refills Start Date Active carvedilol (COREG) 12.5 Take 12.5 mg 0 mg tablet by mouth Twice Daily With Meals. Active spironolactone Take 25 mg by 0 (ALDACTONE) 25 mg tablet mouth Daily. Active citalopram (CELEXA) 10 mg Take 10 mg by 0 tablet mouth Daily. Active MULTIVITAMINS Take 1 Tab by 0 (MULTI-VITAMIN PO) mouth Daily. Active DOCOSAHEXANOIC ACID/EPA Take 3 Tabs 0 (FISH OIL PO) by mouth Daily. Active atorvastatin (LIPITOR) 40 Take 40 mg by 0 mg tablet mouth daily. Active clonazePAM (KLONOPIN) 1 Take 1 mg by 0 mg tablet mouth twice daily. Active tamsulosin (FLOMAX) 0.4 Take 0.4 mg 0 mg capsule by mouth daily. Do not crush, chew or open capsules. Take 30 minutes following the same meal each day. Active allopurinol (ZYLOPRIM) Take 100 mg 0 100 mg tablet by mouth daily. Take with food. Active cholecalciferol (VITAMIN Take 1,000 0 D) 1,000 units tablet Units by mouth daily. Active dexamethasone (DECADRON) Take 0.5 mg 0 0.5 mg tablet by mouth twice daily. Active vitamin B complex (B Take by 0 COMPLEX-VITAMIN B12 PO) mouth. Active losartan (COZAAR) 50 mg Take 50 mg by 0 tablet mouth daily. Active clopiDOGrel (PLAVIX) 75 Take one 0 mg tablet tablet by 9 mouth daily. Active HYDROcodone/acetaminophen Take one 10 tablet 0 (NORCO) 5/325 mg tablet tablet by 9 mouth every 4 hours as needed for Pain Earliest Fill Date: 11/03/18 Active docusate (COLACE) 100 mg Take one 60 capsule 0 capsule capsule by 9 mouth twice daily. Active Problems Problem Noted Date Disorder of scalp 11/03/2018 Inactive Meniere's disease of both ears 11/05/2017 Hearing loss, bilateral 11/04/2017 Overview: Added automatically from request for surgery [id number] Encounters Care Team Description Date Type Specialty Kendal Leonardo AUD Sensorineural hearing loss, bilateral 11/29/2018 Clinical Otolaryngology Support Yung Moreno MD Inactive Meniere's disease of both ears (Primary Dx) 11/29/2018 Office Visit Otolaryngology Yung Moreno MD ADJACENT TISSUE TRANSFER PEDICLE FLAP (THINNING OF SCALP ABOVE MAGNET) 11/03/2018 Surgery Yung Rose MD 11/03/2018 Anesthesia Event Yung Moreno MD Disorder of scalp 11/03/2018 Hospital Encounter from Last 3 Months Social History Date Tobacco Use Types Packs/Day Years Used Never Smoker Smokeless Tobacco: Never Used Alcohol Use Drinks/Week oz/Week Comments Yes 1 Cans of 12.0 beer Sex Assigned at Date Recorded Not on file Industry Job Start Date Occupation Not on file Not on file Not on file Travel End Travel History Travel Start No recent travel history available. Last Filed Vital Signs Time Taken Vital Sign Reading 11/29/2018 1:29 PM MARINA SALES AND SERVICE SUPERVISOR Blood Pressure 116/75 11/29/2018 1:29 PM MARINA SALES AND SERVICE SUPERVISOR Pulse 92 11/03/2018 11:45 AM MARINA SALES AND SERVICE SUPERVISOR Temperature 37.2 C (99 F) - Respiratory Rate - 11/03/2018 11:45 AM MARINA SALES AND SERVICE SUPERVISOR Oxygen Saturation 93% - Inhaled Oxygen - Concentration 11/29/2018 1:29 PM MARINA SALES AND SERVICE SUPERVISOR Weight 97.1 kg (214 lb) 11/29/2018 1:29 PM MARINA SALES AND SERVICE SUPERVISOR Height 182.9 cm (6') 11/29/2018 1:29 PM MARINA SALES AND SERVICE SUPERVISOR Body Mass Index 29.02 Plan of Treatment Health Maintenance Due Date Last Done Comments PHYSICAL (COMPREHENSIVE) 01/16/1942 EXAM DTAP/TDAP VACCINES (1 - 1955 Tdap) SHINGLES RECOMBINANT 1987 VACCINE (1 of 2) PNEUMONIA (PCV13/PPSV23) 2002 VACCINES (1 of 2 - PCV13) INFLUENZA VACCINE 05/17/2019 08/14/2010, 09/23/2006, 09/19/2003, Additional history exists Implants Device Identifier Shelf Expiration Date Model / Serial / Lot Implanted Type Area Manufactur er 11/16/2020 CI-1600-04 / [id number] / [id number] Implant Cochlear Hires Ultra Right: Ear UNIDENTIFI [employer] Electrode Sterile ED G - [id number] Implanted: Qty: 1 on 02/24/2018 by Yung Moreno MD Procedures Comments Procedure Name Priority Date/Time Associated Diagnosis AUDIOMETRY WITH Routine 11/29/2018 TYMPANOMETRY 3:55 PM MARINA SALES AND SERVICE SUPERVISOR COCHLEAR IMPLANT Routine 11/29/2018 OUTCOMES-AUDIOGRAM ADJACENT TISSUE TRANSFER 11/03/2018 Cochlear implant PEDICLE FLAP DEFECT 10 SQ 9:50 AM MARINA SALES AND SERVICE SUPERVISOR follow-up CM OR LESS - LOWER Bilateral hearing loss, EXTREMITY unspecified hearing loss type Inactive Meniere's disease of both ears ECG-SCAN 11/03/2018 12:00 AM MARINA SALES AND SERVICE SUPERVISOR TELEMETRY STRIPS-SCAN 11/03/2018 12:00 AM MARINA SALES AND SERVICE SUPERVISOR from Last 3 Months Results * COCHLEAR IMPLANT OUTCOMES-AUDIOGRAM (11/29/2018) Narrative Performed At Performing Organization Address City/State/Zipcode Phone Number IN CLINIC * TELEMETRY STRIPS-SCAN (11/03/2018 12:00 AM MARINA SALES AND SERVICE SUPERVISOR) Narrative Performed At Ordered by an unspecified provider. * ECG-SCAN (11/03/2018 12:00 AM MARINA SALES AND SERVICE SUPERVISOR) Narrative Performed At Ordered by an unspecified provider. from Last 3 Months Insurance Payer Benefit Subscriber ID Type Phone Address Plan / Group MEDICARE MEDICARE xxxxxxxxxx Medicare PART A AND B BCBS VIVEK BCBS xxxxxxxxxxxx Medicare SUPPLEMENT Advance Directives Patient has advance care planning documents on file. For more information, please contact: [facility] [address] [place] [address]
--- OUTSIDE RECORDS SUMMARY | 2018-12-19 12:18 | XMS REPORT | Encounter Summary ---
Author Author [facility] Organization [facility] Address Unknown Phone Unavailable Care Team Providers Care Silk Screen Painter Name Role Phone Michael Velasquez MD Unavailable Lesley Butcher MD PCP Reason for Visit * Reason Comments Cochlear Implant Encounter Details Care Team Description Date Type Department Kendal Leonardo AUD [address] [facility] [address] [place] [address] Sensorineural hearing loss, bilateral 11/29/2018 Clinical [facility] Support Physicians - ENT [address] Level [address] [place] [address] Social History Date Tobacco Use [...] travel history available. as of this encounter Progress Notes * Kendal Leonardo AUD - 11/29/2018 2:00 PM MEDICAL COLLECTOR Estrada Godoy was seen in the clinic today for continued programming of his Advanced Bionics cochlear implant. He is here with his and daughter. Mr. Godoy was seen by Dr. Moreno prior to today's appointment for follow-up after skin flap thinning. 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 He has only worn a hearing aid in the left ear for a number of years. Mr. Godoy' family reports his hearing to have reduced significantly over the last month. They also state his dizziness has gotten worse ("He can fall over at any given time, even when sitting in a chair.") as well as some memory issues all started declining around the same time. Family is wondering if everything is connected or if something is going on with his implant. Internal Device Ear Allergy Specialist Internal Device Initial Stimulation Date Surgery Date Time Post Initial Stimulation Surgeon R Advanced Bionic Toddgen Feliciano MS 03/10/18 02/24/18 8 months Yung Moreno MD Equipment: Ear Processor(s) Serial Number Magnet Strength Processor Condition R Beena CI [id number] good Programming: Impedances: within normal limits Electrodes Deactivated: none Data Logging: Magnet: His magnet is sticking well today M levels were assessed using tonebursts and loudness scaling. Mr. Godoy had some difficulty with the loudness scaling task as he confused pitch and volume. T levels were increased by ~10 steps and the microphone was set to omni directional. Upon activation in live voice, he reported that the clinician's voice was too loud. M levels were globally reduced. Then he reported that the clinician's voice was in a barrel. Clear voice was increased to medium, mid to high frequency M levels were increased, IDR was decreased to 75, and sound relax was disabled. Following these changes, Mr. Godoy reported a clearer, improved sound quality. With his hearing aid placed on the left ear, he noted that the sound quality was better than his walkin settings. He was advised that today's settings are different. It was recommended that he try to adjust to hearing sounds in his environment as his previous setting ( UltraZoom) was very restricting. He was provided with autoUltraZoom as a second program. It was recommended that he use this for restaurant settings. Maps/Programs: Program Beena CI Q90 Processor 1 Omni directional (Processor + Tmic) 2 autoUltraZoom His backup sound processor was programmed Assessment of Aural Rehab Status: START: 2:55, END: 3:30PM An aided soundfield audiogram revealed thresholds at expected levels from 250- 6kHz. Test 11/29/18 (8 months) 06/09/18 (3 months) 04/07/18 (1 month) 11/04/17 (pre-op) Az Bio (quiet) - CI only 45% 49% 53% 32% Az Bio (quiet) - CI + JORDAN 71% 76% 82% 73% Az Bio (+5 dB SNR) - CI + JORDAN 41% 35% 30% 36% CNC (words) - CI only 30% 52% 38% DNT CNC (phonemes) - CI only 49% 73% 61% DNT CNC (words) - CI + JORDAN 54% 64% DNT DNT CNC (phonemes) - CI + JORDAN 71% 81% DNT DNT Evaluation of Aural Rehabilitation Status: 40 min. Hearing Aid: Patient wears a BTE from [employer]. Allergy Specialist: [employer] Model: Serial Numbers: Repair Warranty: L&D Warranty: Battery: 675 Domes: full mold Programs: Volume: Summary: Mr. Godoy shows a slight dip in performance today with the cochlear implant. Multiple changes to his programming settings were made, which may take him time to adjust. It was recommended that he try today's changes and follow-up in 3 months for repeat testing. Recommendations: Mr. Godoy should return to the clinic in 3 months for continued programming and outcome measurements with Nelson Joseph Follow-up with hearing aid provider to have left hearing aid checked. CAL COLLECTOR in this encounter Plan of Treatment Not on fileas of this encounter Procedures Comments Procedure Name Priority Date/Time Associated Diagnosis AUDIOMETRY WITH Routine 11/29/2018 TYMPANOMETRY 3:55 PM MEDICAL COLLECTOR COCHLEAR IMPLANT Routine 11/29/2018 OUTCOMES-AUDIOGRAM in this encounter Visit Diagnoses Diagnosis Sensorineural hearing loss, bilateral in this encounter
--- OUTSIDE RECORDS SUMMARY | 2018-12-19 12:18 | XMS REPORT | Encounter Summary ---
Author Author [facility] Organization [facility] Address Unknown Phone Unavailable Care Team Providers Care Senior Database Programmer Name Role Phone Michael Velasquez MD Unavailable [...] disease of both ears [H81.03] P rocedures [place] ADJT TIS TRNSFR/REARRGMT E/N/E/L DFCT 10 SQ CM/< [place] ADJT TIS TRNSFR/REARRGMT E/N/E/L DFCT 10 SQ CM/< ADJACENT TISSUE TRANSFER PEDICLE FLAP (THINNING OF SCALP ABOVE MAGNET) Encounter Details Care Team Description Date Type Department Yung Rose MD [id number] [place] [address] [phone] 11/03/2018 Anesthesia [place] Operating Room Event [address] [place] [address] Anesthesia Record Responsible Anesthesiologist Anesthesia Start Time Anesthesia Stop Time Procedure Name Yung Rose MD 11/03/18 0942 11/03/18 1052 ADJACENT TISSUE TRANSFER PEDICLE FLAP (THINNING OF SCALP ABOVE MAGNET) (Right Head) Date Time Event Comment 836 0924 AN Equip Check 0942 Anes Start 0942 In Room 0943 An Start Data 0947 An Induction The patient was reevaluated immediately before moderate or deep sedation use and before anesthesia induction. 0949 An Intubation 0951 Anesthesia Ready 0954 Antibiotic Given 1003 Proc Start 1046 An Extubation 1047 an stop data 1051 Handoff to RN I completed my SBAR handoff to the receiving nurse. 1052 an shubham now 1052 An Stop Meds Name Total fentaNYL PF (SUBLIMAZE) injection 75 mcg lidocaine (2%) 200 mg/10mL Injection 80 mg syringe propofol (DIPRIVAN) 200 mg/ 20 mL 170 mg injection (VIAL) ondansetron (ZOFRAN) injection 4 mg dexamethasone (DECADRON) 4 mg/mL 4 mg injection phenylephrine (ANIBAL-SYNEPHRINE) 0.1 mg/mL 550 mcg injection (SYRINGE) dextran 70/hypromellose (GENTEAL TEARS; 2 drop BION TEARS) ophthalmic solution ePHEDrine 50 mg/mL 50 mg in sodium 30 mg chloride PF 0.9% 5 mL IV syringe ceFAZolin (ANCEF) injection 2 g lactated ringers infusion 600 mL * Name O2 N2O Inspired Sevoflurane Inspired Sevoflurane * No blood administrations on file. Removal Type Details Placement Wounds 02/24/18; 1502; Ear; Surgical Incision; 02/24/18 1502 by (NOT for Gelfoam, Mupirocen, Sutures, annette Stockberger, Linda, RN Pressure Injuries) Wounds 11/03/18; 1028; Head; Surgical Incision; 11/03/18 1028 by (NOT for sutures, dermabond, annette Boo-Barron, Darby, Pressure RN Injuries) 11/03/18 1227 by Ama Ledezma, IKE Peripheral 11/03/18; 0757; RN; L; Posterior; Hand; 11/03/18 0757 by Brenna, IV 22 G; 2; 11/03/18; 1227 IKE Garay 11/03/18 1046 by Lillie Peralta CRNA Supraglott 11/03/18; 0949; Ventilated by mask with 11/03/18 0949 by ic Airway oral airway (2); LMA; 5; 2 insertion Lillie Peralta, attempts; Auscultation, End-tidal CO2; EQUINE MANAGER atraumatic; 11/03/18; 1046 in this encounter Social History Date Tobacco Use Types Packs/Day Years Used Never Smoker Smokeless Tobacco: Never Used Alcohol Use Drinks/Week oz/Week Comments Yes 1 Cans of 12.0 beer Sex Assigned at Date Recorded Not on file Industry Job Start Date Occupation Not on file Not on file Not on file Travel End Travel History Travel Start No recent travel history available. as of this encounter Plan of Treatment Not on fileas of this encounter Visit Diagnoses Not on filein this encounter Administered Medications Action Date Dose Rate Site Medication Order MAR Action 11/03/2018 9:54 AM SENIOR SVP 2 g ceFAZolin (ANCEF) injection Given INTRA-PROCEDURE MED, Starting Tue11/03/18 at 0954, Until Tue11/03/18 at 1054, Anesthesia Intra-op 11/03/2018 9:53 AM SENIOR SVP 4 mg dexamethasone (DECADRON) injection Given Intravenous, INTRA-PROCEDURE MED, Starting Tue11/03/18 at 0953, Until Tue11/03/18 at 1054, Anesthesia Intra-op 11/03/2018 9:51 AM SENIOR SVP 2 drops dextran 70/hypromellose (GENTEAL TEARS; Given BION TEARS) ophthalmic solution INTRA-PROCEDURE MED, Starting Tue11/03/18 at 0951, Until Tue11/03/18 at 1054, Anesthesia Intra-op 11/03/2018 10:24 AM SENIOR SVP 10 mg ePHEDrine 50 mg/mL 50 mg in sodium Bolus chloride PF 0.9% 5 mL IV syringe 5 mL, INTRA-PROCEDURE MED(CONT), Starting Tue11/03/18 at 1007, Until Tue11/03/18 at 1054, Anesthesia Intra-op 10 mg Bolus 11/03/2018 10:13 AM SENIOR SVP 10 mg Given - New Bag 11/03/2018 10:07 AM SENIOR SVP 11/03/2018 10:19 AM SENIOR SVP 25 mcg fentaNYL citrate PF (SUBLIMAZE) Given injection INTRA-PROCEDURE MED, Starting Tue11/03/18 at 0947, Until Tue11/03/18 at 1054, Anesthesia Intra-op 50 mcg Given 11/03/2018 9:47 AM SENIOR SVP 11/03/2018 9:47 AM SENIOR SVP 80 mg lidocaine (PF) injection Given INTRA-PROCEDURE MED, Starting Tue11/03/18 at 0947, Until Tue11/03/18 at 1054, Anesthesia Intra-op 11/03/2018 10:22 AM SENIOR SVP 4 mg ondansetron (ZOFRAN) injection Given Intravenous, INTRA-PROCEDURE MED, Starting Tue11/03/18 at 1022, Until Tue11/03/18 at 1054, Anesthesia Intra-op 11/03/2018 10:09 AM SENIOR SVP 100 mcg phenylephrine in NS injection syringe Given Intravenous, INTRA-PROCEDURE MED, Starting Tue11/03/18 at 0956, Until Tue11/03/18 at 1054, Anesthesia Intra-op 100 mcg Given 11/03/2018 10:05 AM SENIOR SVP 100 mcg Given 11/03/2018 10:03 AM SENIOR SVP 11/03/2018 9:55 AM SENIOR SVP 20 mg propofol (DIPRIVAN) injection Given INTRA-PROCEDURE MED, Starting Tue11/03/18 at 0947, Until Tue11/03/18 at 1054, Anesthesia Intra-op 30 mg Given 11/03/2018 9:48 AM SENIOR SVP 120 mg Given 11/03/2018 9:47 AM SENIOR SVP in this encounter
--- OUTSIDE RECORDS SUMMARY | 2018-12-19 12:24 | XMS REPORT | CCD ---
Author Author [facility] Organization [facility] Address [address] [place] [address] Phone Care Team Providers Care Cathode Washer Name Role Phone PP Unavailable CCM Unavailable Summary Purpose Interface Exchange Insurance Providers Payer name Policy type / Coverage type Covered constitution party ID Effective Begin Date Effective End Date WPS Medicare Part B Medicare Part B [id number] 2018 Unknown [facility] Medicare Part B [id number] 2018 Unknown Family history Father Diagnosis Age At Onset Hypertension Unknown Coronary Artery Disease Unknown Sister Diagnosis Age At Onset Heart disease Unknown Mother Diagnosis Age At Onset Coronary Artery Disease Unknown Hypertension Unknown Social History Social History Element Codes Description Effective Dates Marital status Unknown 02/19/2015 Number of children Unknown 2 02/19/2015 Employment Unknown Retired 02/19/[address]: 562884208 Has never smoked or chewed tobacco 02/19/2015 Alcohol history Unknown occasionally drinks alcohol 02/19/2015 Allergies, Adverse Reactions, Alerts Substance Reaction Codes Entered Date Inactivated Date Status bactrim RxNorm: 404431 12/19/2015 No Inactive Date Active ciprofloxacin RxNorm: 04159 02/18/2015 No Inactive Date Active Past Medical History Illness Codes Condition Status Onset Date Resolved Date Obstructive sleep apnea (adult) (pediatric) ICD-9: 327.23 ICD-10: G47.33 Active 12/13/2018 Unknown Other fatigue ICD-9: 780.79 ICD-10: R53.83 Active 11/27/2018 Unknown Other malaise ICD-9: 780.79 ICD-10: R53.81 Active 12/08/2017 Unknown Shortness of breath ICD-9: 786.05 ICD-10: R06.02 Active 11/27/2018 Unknown Dizziness and giddiness ICD-9: 780.4 ICD-10: R42 Active 07/26/2018 Unknown Essential (primary) hypertension ICD-9: 401.1 ICD-10: I10 Active 06/27/2016 Unknown Muscle weakness (generalized) ICD-9: 728.87 ICD-10: M62.81 Active 11/27/2018 Unknown Essential (primary) hypertension ICD-9: 401.9 ICD-10: I10 Active 02/18/2015 Unknown Low back pain ICD-9: 724.2 ICD-10: M54.5 Active 09/26/2018 Unknown Vertigo of central origin, 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 Active 07/26/2018 Unknown Encounter for general adult medical examination with abnormal findings ICD-9: V70.0 ICD-10: Z00.01 Active 08/03/2017 Unknown Encounter for immunization ICD-9: V04.81 ICD-10: Z23 Active 06/27/2016 Unknown Drug-induced adrenocortical insufficiency ICD-9: 255.41 ICD-10: E27.3 Active 06/12/2018 Unknown Weakness ICD-9: 780.79 ICD-10: R53.1 Active 12/15/2015 Unknown Diverticulosis of large intestine without perforation or abscess with bleeding ICD-9: 562.12 ICD-10: K57.31 Active 05/10/2018 Unknown 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 ICD-10: D50.8 Active 04/26/2016 Unknown Major depressive disorder, recurrent, 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 ICD-10: F33.0 Active 06/27/2016 Unknown Sensorineural hearing loss, bilateral ICD-9: 389.11 ICD-10: H90.3 Active 09/01/2017 Unknown Mixed hyperlipidemia ICD-9: 272.2 ICD-10: E78.2 Active 02/16/2016 Unknown Fever, unspecified ICD -9: 780.60 ICD-10: R50.9 Active 12/08/2017 Unknown Benign prostatic hyperplasia without lower urinary tract symptoms ICD-9: 600.00 ICD-10: N40.0 Active 01/03/2017 Unknown Dysphagia, pharyngeal phase ICD-9: 787.23 ICD-10: R13.13 Active 09/29/2017 Unknown Urge incontinence ICD- 9: 788.31 ICD-10: N39.41 Active 09/27/2016 Unknown Laceration without foreign body of right forearm, initial encounter ICD-9: 881.00 ICD-10: S51.811A Active 06/27/2016 Unknown Laceration without foreign body of left forearm, initial encounter ICD-9: 881.00 ICD-10: S51.812A Active 06/27/2016 Unknown Idiopathic gout, left ankle and foot ICD-9: 274.00 ICD-10: M10.072 Active 04/26/2016 Unknown Localized edema ICD-9 : 782.3 ICD-10: R60.0 Active 01/19/2016 Unknown Major depressive disorder, single episode, unspecified ICD-9: 311 ICD-10: F32.9 Active 01/19/2016 Unknown Gout, unspecified ICD- 9: 274.9 ICD-10: M10.9 Active 12/15/2015 Unknown Hypotension, unspecified ICD-9: 458.9 ICD-10: I95.9 Active 12/15/2015 Unknown Dyspnea, unspecified ICD-9: 786.09 ICD-10: R06.00 Active 11/26/2015 Unknown Hypoxemia ICD-9: 799.02 ICD-10: R09.02 Active 11/26/2015 Unknown Gastro-esophageal reflux disease without esophagitis ICD-9: 530.81 ICD-10: K21.9 Active 07/29/2015 Unknown ESSENTIAL HYPERTENSION ICD-9: 401.9 Active 02/18/2015 Unknown Depression Unknown Active 02/19/2015 Unknown Hypertension Unknown Active 02/19/2015 Unknown DEPRESSIVE DISORDER NEC ICD-9: 311 Active 02/18/2015 Unknown Encounter for screening fecal occult blood testing ICD-9: V76.51 Active 02/18/2015 Unknown Enlarged prostate ICD- 9: 600.00 Active 02/18/2015 Unknown Nasal inflammation due to allergen ICD-9: 477.9 Active 2014 Unknown Problems Condition Codes Effective Dates Condition Status Obstructive sleep apnea (adult) (pediatric) ICD-9: 327.23 ICD-10: G47.33 12/13/2018 Active Other fatigue ICD-9: 780.79 ICD-10: R53.83 11/27/2018 Active Other malaise ICD-9: 780.79 ICD-10: R53.81 12/08/2017 Active Shortness of breath ICD-9: 786.05 ICD-10: R06.02 11/27/2018 Active Dizziness and giddiness ICD-9: 780.4 ICD-10: R42 07/26/2018 Active Essential (primary) hypertension ICD-9: 401.1 ICD-10: I10 06/27/2016 Active Muscle weakness (generalized) ICD-9: 728.87 ICD-10: M62.81 11/27/2018 Active Essential (primary) hypertension ICD-9: 401.9 ICD-10: I10 02/18/2015 Active Low back pain ICD-9: 724.2 ICD-10: M54.5 09/26/2018 Active Vertigo of central origin, 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 07/26/2018 Active Encounter for general adult medical examination with abnormal findings ICD-9: V70.0 ICD-10: Z00.01 08/03/2017 Active Encounter for immunization ICD-9: V04.81 ICD-10: Z23 06/27/2016 Active Drug-induced adrenocortical insufficiency ICD-9: 255.41 ICD-10: E27.3 06/12/2018 Active Weakness ICD-9: 780.79 ICD-10: R53.1 12/15/2015 Active Diverticulosis of large intestine without perforation or abscess with bleeding ICD-9: 562.12 ICD-10: K57.31 05/10/2018 Active 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 ICD-10: D50.8 04/26/2016 Active Major depressive disorder, recurrent, 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 ICD-10: F33.0 06/27/2016 Active Sensorineural hearing loss, bilateral ICD-9: 389.11 ICD-10: H90.3 09/01/2017 Active Mixed hyperlipidemia ICD-9: 272.2 ICD-10: E78.2 02/16/2016 Active Fever, unspecified ICD -9: 780.60 ICD-10: R50.9 12/08/2017 Active Benign prostatic hyperplasia without lower urinary tract symptoms ICD-9: 600.00 ICD-10: N40.0 01/03/2017 Active Dysphagia, pharyngeal phase ICD-9: 787.23 ICD-10: R13.13 09/29/2017 Active Urge incontinence ICD- 9: 788.31 ICD-10: N39.41 09/27/2016 Active Laceration without foreign body of right forearm, initial encounter ICD-9: 881.00 ICD-10: S51.811A 06/27/2016 Active Laceration without foreign body of left forearm, initial encounter ICD-9: 881.00 ICD-10: S51.812A 06/27/2016 Active Idiopathic gout, left ankle and foot ICD-9: 274.00 ICD-10: M10.072 04/26/2016 Active Localized edema ICD-9 : 782.3 ICD-10: R60.0 01/19/2016 Active Major depressive disorder, single episode, unspecified ICD-9: 311 ICD-10: F32.9 01/19/2016 Active Gout, unspecified ICD- 9: 274.9 ICD-10: M10.9 12/15/2015 Active Hypotension, unspecified ICD-9: 458.9 ICD-10: I95.9 12/15/2015 Active Dyspnea, unspecified ICD-9: 786.09 ICD-10: R06.00 11/26/2015 Active Hypoxemia ICD-9: 799.02 ICD-10: R09.02 11/26/2015 Active Gastro-esophageal reflux disease without esophagitis ICD-9: 530.81 ICD-10: K21.9 07/29/2015 Active ESSENTIAL HYPERTENSION ICD-9: 401.9 02/18/2015 Active Depression Unknown 02/19/2015 Active Hypertension Unknown 02/19/2015 Active DEPRESSIVE DISORDER NEC ICD-9: 311 02/18/2015 Active Encounter for screening fecal occult blood testing ICD-9: V76.51 02/18/2015 Active Enlarged prostate ICD- 9: 600.00 02/18/2015 Active Nasal inflammation due to allergen ICD-9: 477.9 02/18/2015 Active Medications Medication Codes Instructions Start Date Stop Date Status Fill Instructions pantoprazole 40 mg tablet,delayed release RxNorm: 852768 TAKE ONE TABLET BY MOUTH ONCE DAILY AT BEDTIME 11/27/2018 No Stop Date Active atorvastatin 40 mg tablet RxNorm: 749999 1 Tablet(s) PO daily 09/26/2018 10/25/2018 Inactive dexamethasone 0.5 mg tablet RxNorm: 744427 TAKE 1 TABLET BY MOUTH ONCE DAILY 08/29/2018 No Stop Date Active clonazepam 1 mg tablet RxNorm: 457492 1/2 Tablet(s) PO QHS 05/201812/21/2018 Active allopurinol 100 mg tablet RxNorm: 597166 TAKE ONE TABLET BY MOUTH ONCE DAILY 08/03/2018 No Stop Date Active citalopram 40 mg tablet RxNorm: 015723 TAKE ONE TABLET BY MOUTH ONCE DAILY 06/13/2018 No Stop Date Active Kenalog 40 mg/mL suspension for injection RxNorm: 8823051 Milliliter(s) Inj 06/12/2018 06/12/2018 Inactive clonazepam 1 mg tablet RxNorm: 305734 1 Tablet(s) PO QHS 201708/23/2018 Inactive losartan 50 mg tablet RxNorm: 874715 1/2 Tablet(s) PO daily 05/2018 No Stop Date Active clonazepam 1 mg tablet RxNorm: 844731 1/2 Tablet(s) TAKE ONE TABLET BY MOUTH ONCE DAILY AT BEDTIME AND ONE TABLET THREE TIMES DAILY NEEDED 05/24/2018 06/11/2018 Inactive citalopram 40 mg tablet RxNorm: 563217 1/2 Tablet(s) TAKE ONE TABLET BY MOUTH ONCE DAILY 05/24/2018 09/25/2018 Inactive spironolactone 25 mg tablet RxNorm: 210997 TAKE ONE TABLET BY MOUTH ONCE DAILY 05/22/2018 No Stop Date Active dexamethasone 0.5 mg tablet RxNorm: 779765 TAKE ONE TABLET BY MOUTH ONCE DAILY 02/21/2018 08/28/2018 Inactive Flomax 0.4 mg capsule RxNorm: 795192 TAKE ONE CAPSULE BY MOUTH ONCE DAILY IN THE EVENING 12/19/2017 No Stop Date Active Tamiflu 75 mg capsule RxNorm: 152282 1 Capsule(s) PO BID 201712/12/2017 Inactive clonazepam 1 mg tablet RxNorm: 697387 Tablet(s) TAKE ONE TABLET BY MOUTH ONCE DAILY AT BEDTIME AND ONE TABLET THREE TIMES DAILY NEEDED 11/28/2017 01/26/2018 Inactive pantoprazole 40 mg tablet,delayed release RxNorm: 678903 TAKE ONE TABLET BY MOUTH ONCE DAILY AT BEDTIME 11/07/20172018 Inactive allopurinol 100 mg tablet RxNorm: 245753 TAKE ONE TABLET BY MOUTH ONCE DAILY 10/03/2017 08/02/2018 Inactive pantoprazole 40 mg tablet,delayed release RxNorm: 636408 1 Tablet(s) PO BID 09/01/2017 05/28/2018 Inactive Vitamin B-6 100 mg tablet RxNorm: 513718 1 Tablet(s) PO daily 09/01/2017 06/11/2018 Inactive dutasteride 0.5 mg capsule RxNorm: 331686 1 Capsule(s) PO QPM 09/01/2017 06/11/2018 Inactive spironolactone 25 mg tablet RxNorm: 212627 TAKE ONE TABLET BY MOUTH ONCE DAILY 08/15/2017 05/21/2018 Inactive citalopram 40 mg tablet RxNorm: 041540 TAKE ONE TABLET BY MOUTH ONCE DAILY 08/08/2017 05/04/2018 Inactive dexamethasone 0.5 mg tablet RxNorm: 887103 TAKE ONE TABLET BY MOUTH ONCE DAILY 08/08/2017 11/05/2017 Inactive clonazepam 1 mg tablet RxNorm: 263286 TAKE ONE TABLET BY MOUTH ONCE DAILY AT BEDTIME AND ONE THREE TIMES DAILY NEEDED 05/12/2017 08/08/2017 Inactive clonazepam 1 mg tablet RxNorm: 309495 1 Tablet(s) PO QHS AND 1 TAB PO TID PRN 05/12/2017 05/13/2017 Inactive oxybutynin chloride ER 10 mg tablet,extended release 24 hr RxNorm: 215790 1 Tablet (s) PO daily 04/29/2017 08/02/2017 Inactive dexamethasone 0.5 mg tablet RxNorm: 494850 TAKE ONE TABLET BY MOUTH ONCE DAILY 02/14/2017 04/14/2017 Inactive Flomax 0.4 mg capsule RxNorm: 935203 TAKE ONE CAPSULE BY MOUTH ONCE DAILY IN THE EVENING 02/14/2017 11/10/2017 Inactive pantoprazole 40 mg tablet,delayed release RxNorm: 379371 TAKE ONE TABLET BY MOUTH ONCE DAILY AT BEDTIME 02/14/20172016 Inactive oxybutynin chloride ER 10 mg tablet,extended release 24 hr RxNorm: 447867 1 Tablet (s) PO daily 01/25/2017 04/24/2017 Inactive dexamethasone 0.5 mg tablet RxNorm: 990186 TAKE ONE TABLET BY MOUTH ONCE DAILY 11/10/2016 12/09/2016 Inactive oxybutynin chloride ER 5 mg tablet,extended release 24 hr RxNorm: 578962 1 Tablet( s) PO daily 10/28/2016 10/27/2016 Inactive oxybutynin chloride ER 5 mg tablet,extended release 24 hr RxNorm: 843753 1 Tablet( s) PO daily 10/28/2016 01/24/2017 Inactive Detrol LA 2 mg capsule,extended release RxNorm: 122181 1 Capsule(s) PO QPM 10/26/2016 10/27/2016 Inactive clonazepam 1 mg tablet RxNorm: 062780 1 Tablet(s) PO QHS AND 1 TAB PO TID PRN 10/20/2016 04/17/2017 Inactive dexamethasone 0.5 mg tablet RxNorm: 824930 TAKE ONE TABLET BY MOUTH ONCE DAILY 10/06/2016 11/04/2016 Inactive allopurinol 100 mg tablet RxNorm: 484305 1 Tablet(s) PO daily 09/30/2016 09/24/2017 Inactive Vesicare 5 mg tablet RxNorm: 607260 1 Tablet(s) PO QPM 201512/12/2016 Inactive spironolactone 25 mg tablet RxNorm: 722193 1 Tablet(s) PO daily 08/06/2016 07/31/2017 Inactive citalopram 40 mg tablet RxNorm: 540757 1 Tablet(s) PO daily 09/201606/22/2017 Inactive Plavix 75 mg tablet RxNorm: 812598 1 Tablet(s) PO daily 2015 No Stop Date Active iron ER 159 mg (45 mg iron) tablet,extended release RxNorm: 201795 1 Tablet(s) PO daily 04/27/2016 08/31/2017 Inactive dexamethasone 0.5 mg tablet RxNorm: 910993 1/2 Tablet(s) PO daily 04/27/2016 02/20/2018 Inactive allopurinol 100 mg tablet RxNorm: 108373 1 Tablet(s) PO daily 04/27/2016 09/29/2016 Inactive clonazepam 1 mg tablet RxNorm: 510929 1 Tablet(s) PO QHS and 1 tab po TID prn 04/14/2016 10/07/2016 Inactive allopurinol 100 mg tablet RxNorm: 620103 1 Tablet(s) PO daily 02/17/2016 04/26/2016 Inactive citalopram 20 mg tablet RxNorm: 141246 1 Tablet(s) PO daily 02/201606/27/2016 Inactive Flomax 0.4 mg capsule RxNorm: 233069 1 Capsule(s) PO QPM 201501/13/2017 Inactive [SAVINGS FOR NON-COVERED DRUGS -- BIN:150937, PCN: ASPROD1, Group: XXXXX, ID # [id number], Questions: . THIS IS NOT INSURANCE.] pantoprazole 40 mg tablet,delayed release RxNorm: 446427 1 Tablet(s) PO QHS 01/20/2016 01/13/2017 Inactive Colcrys 0.6 mg tablet RxNorm: 876163 1 Tablet(s) PO daily 201503/05/2016 Inactive take daily x 7 days then daily as needed for gout flair colchicine 0.6 mg tablet RxNorm: 198172 1 Tablet(s) PO BID 01/01/2016 Inactive doxycycline hyclate 100 mg tablet RxNorm: 331081 1 Tablet(s) PO BID 12/19/2015 12/28/2015 Inactive doxycycline hyclate 100 mg tablet RxNorm: 646814 1 Tablet(s) PO BID 12/19/2015 12/18/2015 Inactive allopurinol 100 mg tablet RxNorm: 454034 1 Tablet(s) PO daily 12/16/2015 02/16/2016 Inactive colchicine 0.6 mg tablet RxNorm: 280609 Tablet(s) PO 1.2 mg PO in the morning and 0.6 mg at night for 2 days. 12/16/2015 Inactive allopurinol 100 mg tablet RxNorm: 066862 1 Tablet(s) PO daily 12/16/2015 12/15/2015 Inactive Protonix 40 mg tablet,delayed release RxNorm: 450208 1 Tablet(s) PO daily 12/16/2015 01/14/2016 Inactive Bactrim DS 800 mg-160 mg tablet RxNorm: 722104 1 Tablet(s) PO BID 12/16/2015 12/18/2015 Inactive colchicine 0.6 mg tablet RxNorm: 471134 Tablet(s) PO 1.2 mg for the first dose and 0.6 mg an hour after 12/15/20152015 Inactive dexamethasone 0.5 mg tablet RxNorm: 480059 1 Tablet(s) PO 12/1202/09/2016 Inactive Plavix 75 mg tablet RxNorm: 309882 1 Tablet(s) PO every other day 12/12/2015 04/09/2016 Inactive nitroglycerin 0.4 mg sublingual tablet RxNorm: 746287 1 Tablet(s) SL x3 in 15 min as needed 12/12/2015 04/26/2016 Inactive clonazepam 1 mg tablet RxNorm: 817887 1 Tablet(s) PO QHS and 1 tab po TID prn 12/11/2015 12/03/2016 Inactive [place] 5 mg-325 mg tablet RxNorm: 340620 1-2 Tablet(s) PO Q6 as needed 12/11/2015 09/26/2016 Inactive clonazepam 1 mg tablet RxNorm: 258627 1 Tablet(s) PO QHS and 1 tab po TID prn 12/04/2015 12/10/2015 Inactive Flomax 0.4 mg capsule RxNorm: 672186 1 Capsule(s) PO QPM 201401/19/2016 Inactive [SAVINGS FOR NON-COVERED DRUGS -- BIN:729172, PCN: ASPROD1, Group: XXXXX, ID # [id number], Questions: . THIS IS NOT INSURANCE.] Flomax 0.4 mg capsule RxNorm: 299408 1 Capsule(s) PO QPM 201409/21/2015 Inactive [SAVINGS FOR NON-COVERED DRUGS -- BIN:911547, PCN: ASPROD1, Group: XXXXX, ID # [id number], Questions: . THIS IS NOT INSURANCE.] clonazepam 1 mg tablet RxNorm: 014974 1 Tablet(s) PO QHS 201412/03/2015 Inactive coenzyme Q10 10 mg tablet RxNorm: 665247 1 Tablet(s) PO daily 07/30/2015 01/05/2016 Inactive spironolactone 25 mg tablet RxNorm: 561950 1 Tablet(s) PO daily 07/28/2015 07/21/2016 Inactive spironolactone 25 mg tablet RxNorm: 421917 1 Tablet(s) PO daily 07/22/2015 07/27/2015 Inactive clonazepam 1 mg tablet RxNorm: 802908 1 Tablet(s) PO QHS 201408/28/2015 Inactive losartan 25 mg tablet RxNorm: 810396 1 Tablet(s) PO daily 201403/20/2015 Inactive Flonase Allergy Relief 50 mcg/actuation nasal spray, suspension RxNorm: 1 [place] NASAL BID 02/19/2015 04/26/2016 Inactive [SAVINGS FOR NON-COVERED DRUGS -- BIN:757317, PCN: ASPROD1, Group: XXXXX, ID# [id number], Questions: [phone]. THIS IS NOT INSURANCE.] Flomax 0.4 mg capsule RxNorm: 136875 1 Capsule(s) PO QPM 201409/15/2015 Inactive [SAVINGS FOR NON-COVERED DRUGS -- BIN:104865, PCN: ASPROD1, Group: XXXXX, ID # [id number], Questions: . THIS IS NOT INSURANCE.] citalopram 20 mg tablet RxNorm: 910812 1 Tablet(s) PO daily 03/201503/20/2015 Inactive atenolol 25 mg tablet RxNorm: 278223 1 Tablet(s) PO daily 201403/20/2015 Inactive Lipitor 20 mg tablet RxNorm: 037916 1 Tablet(s) PO daily 201403/20/2015 Inactive vitamin B complex oral RxNorm: 40197 oral No Start Date Active Claritin-D 24 Hour oral RxNorm: 886410 oral No Start Date Active Lipitor oral RxNorm: 20230 oral No Start Date Active cetirizine 10 mg tablet RxNorm: 5198746 1 Tablet(s) PO daily No Start Date Active Aleve 220 mg tablet RxNorm: 655228 Tablet(s) PO as needed No Start Date Active Vitamin D3 1,000 unit capsule RxNorm: 799514 2 Capsule(s) PO daily No Start Date Active Centrum Complete oral RxNorm: 94038 oral No Start Date Active glucosamine HCl 1,500 mg tablet RxNorm: 142164 1 Tablet(s) with 1200 mg chrondroitin PO daily No Start Date 2017 Inactive ranitidine 150 mg tablet RxNorm: 614779 1 Tablet(s) PO TID No Start Date 12/11/2015 Inactive [place] 5 mg-325 mg tablet RxNorm: 220097 1-2 Tablet(s) PO Q6 as needed No Start Date 12/10/2015 Inactive krill oil oral RxNorm : 48460 oral No Start Date 08/07/2018 Inactive Vitamin B-6 100 mg tablet RxNorm: 369675 1 Tablet(s) PO TID No Start Date 08/31/2017 Inactive spironolactone 25 mg tablet RxNorm: 249744 1 Tablet(s) PO daily No Start Date 07/21/2015 Inactive Vitamin D3 oral RxNorm : 2418 oral No Start Date 02/17/2016 Inactive clonazepam 1 mg tablet RxNorm: 499409 1 Tablet(s) PO daily No Start Date 05/22/2015 Inactive Glucosamine oral RxNorm: 4845 oral No Start Date 04/26/2016 Inactive losartan 50 mg tablet RxNorm: 679715 1 Tablet(s) PO daily No Start Date 05/23/2018 Inactive Plavix 75 mg tablet RxNorm: 250681 1 Tablet(s) PO every other day No Start Date 12/11/2015 Inactive Osteo Bi-Flex oral RxNorm: 7411661 oral No Start Date 09/01/2017 Inactive iron ER 159 mg (45 mg iron) tablet,extended release RxNorm: 772169 1 Tablet(s) PO BID No Start Date 04/26/2016 Inactive amlodipine 5 mg tablet RxNorm: 264587 1 Tablet(s) PO daily No Start Date 01/05/2016 Inactive aspirin 81 mg tablet,delayed release RxNorm: 543868 1 Tablet(s) PO daily No Start Date 05/09/2018 Inactive dexamethasone 0.5 mg tablet RxNorm: 484340 1 Tablet(s) PO No Start Date 12/11/2015 Inactive Vitamin B-12 1,000 mcg tablet RxNorm: 072399 6 Tablet(s) PO every other day No Start Date 06/11/2018 Inactive colchicine 0.6 mg tablet RxNorm: 523270 Tablet(s) PO 1.2 mg for the first dose and 0.6 mg an hour after No Start Date Inactive nitroglycerin 0.4 mg sublingual tablet RxNorm: 041656 1 Tablet(s) SL x3 in 15 min as needed No Start Date 12/11/2015 Inactive Fish Oil 1,000 mg capsule RxNorm: 1 Capsule(s) PO daily No Start Date 04/26/2016 Inactive Ecotrin Low Strength 81 mg tablet,enteric coated RxNorm: 4372074 1 Tablet(s) PO daily No Start Date 09/27/2016 Inactive Medication Administered Medication Codes Instructions Start Date Status Kenalog 40 mg/mL suspension for injection RxNorm: 7944282 Milliliter 06/12/2018 No longer Active Immunizations Vaccine Codes Date Status Influenza CVX: 141 07/05/2018 completed Influenza CVX: 141 08/01/2017 completed Pneumococcal CVX: 33 08/01/2017 completed Influenza CVX: 141 06/28/2016 completed Tetanus, Diptheria, Pertussis CVX: 113 completed Tetanus/Diptheria CVX: 113 06/28/2016 completed Pneumococcal Unknown 08/04/2015 completed Influenza CVX: 141 04/16/2014 completed Pneumococcal CVX: 33 05/15/2008 completed Assessments Condition Codes Effective Dates Other malaise ICD-10: R53.81 ICD-9: 780.79 12/13/2018 Shortness of breath ICD-10: R06.02 ICD-9: 786.05 12/13/2018 Obstructive sleep apnea (adult) (pediatric) ICD-10: G47.33 ICD-9: 327.23 12/13/2018 Other fatigue ICD-10: R53.83 ICD-9: 780.79 12/13/2018 Muscle weakness (generalized) ICD-10: M62.81 ICD-9: 728.87 11/27/2018 Dizziness and giddiness ICD-10: R42 ICD-9: 780.4 11/27/2018 Essential (primary) hypertension ICD-10: I10 ICD-9: 401.1 11/27/2018 Vertigo of central origin, right ear ICD-10: H81.41 ICD-9: 386.2 09/26/2018 Essential (primary) hypertension ICD-10: I10 ICD-9: 401.9 09/26/2018 Low back pain ICD-10: M54.5 ICD-9: 724.2 09/26/2018 Encounter for general adult medical examination with abnormal findings ICD-10: Z00.01 ICD-9: V70.0 08/10/2018 Encounter for immunization ICD-10: Z23 ICD-9: V04.81 07/05/2018 Weakness ICD-10: R53.1 ICD-9: 780.79 06/12/2018 Drug-induced adrenocortical insufficiency ICD-10: E27.3 ICD-9: 255.41 06/12/2018 Diverticulosis of large intestine without perforation or abscess with bleeding ICD-10: K57.31 ICD-9: 562.12 05/10/2018 Other iron 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 ICD-9: 280.1 05/10/2018 Major depressive disorder, recurrent, mild ICD-10: F33.0 ICD-9: 296.31 03/27/2018 Sensorineural hearing loss, bilateral ICD-10: H90.3 ICD-9: 389.11 03/27/2018 Mixed hyperlipidemia ICD-10: E78.2 ICD-9: 272.2 01/24/2018 Fever, unspecified ICD-10: R50.9 ICD-9: 780.60 12/08/2017 Dysphagia, pharyngeal phase ICD-10: R13.13 ICD-9: 787.23 09/29/2017 Benign prostatic hyperplasia with lower urinary tract symptoms ICD-10: N40.1 ICD-9: 600.01 09/29/2017 Urge incontinence ICD-10: N39.41 ICD-9: 788.31 01/25/2017 Benign prostatic hyperplasia without lower urinary tract symptoms ICD-10: N40.0 ICD-9: 600.00 01/03/2017 Laceration without foreign body of left forearm, initial encounter ICD-10: S51.812A ICD-9: 881.00 06/28/2016 Laceration without foreign body of right forearm, initial encounter ICD-10: S51.811A ICD-9: 881.00 06/28/2016 Idiopathic gout, left ankle and foot ICD-10: M10.072 ICD-9: 274.00 04/27/2016 Localized edema ICD-10: R60.0 ICD-9: 782.3 01/20/2016 Major depressive disorder, single episode, unspecified ICD- 10: F32.9 ICD-9: 311 01/20/2016 Gout, unspecified ICD-10: M10.9 ICD-9: 274.9 12/16/2015 Hypotension, unspecified ICD-10: I95.9 ICD-9: 458.9 12/16/2015 Dyspnea, unspecified ICD-10: R06.00 ICD-9: 786.09 11/27/2015 Hypoxemia ICD-10: R09.02 ICD-9: 799.02 11/27/2015 Gastro-esophageal reflux disease without esophagitis ICD-10 : K21.9 ICD-9: 530.81 07/30/2015 ESSENTIAL HYPERTENSION ICD-9: 401.9 06/09 Nasal inflammation due to allergen ICD-9: 477.9 02/19/2015 Encounter for screening fecal occult blood testing ICD-9: V76.51 02/19/2015 DEPRESSIVE DISORDER NEC ICD-9: 311 2014 Enlarged prostate ICD-9: 600.00 2014 Reason For Visit Reason For Visit Effective Dates Notes fatigue 12/13/2018 fatigue 11/27/2018 dyspepsia 09/26/2018 Annual Medicare Wellness Exam 08/10/2018 fatigue 07/26/2018 fatigue 06/12/2018 Hospital Follow Up 05/10/2018 hypertension 03/27/2018 diarrhea 01/24/2018 sinus congestion 12/08/2017 hypertension 10/27/2017 hypertension 09/29/2017 hypertension 09/01/2017 Annual Medicare Wellness Exam 08/03/2017 hypertension 04/26/2017 he has been to chiropractor x2. He has been using an inversion table. earache 01/25/2017 earache 10/26/2016 hypertension 09/27/2016 hypertension 06/28/2016 fatigue 04/27/2016 foot pain 02/17/2016 foot pain 01/20/2016 foot pain 01/06/2016 foot pain 12/16/2015 Hospital Follow Up 11/27/2015 hypertension 07/30/2015 hypertension 06/09/2015 urinary retention/hesitancy 04/29/2015 urinary retention/hesitancy 02/19/2015 Results Observation Observation Code Item Item Code Result Date Cbc With Differential Ord2 WBC 10.12 K/ul 10/20/2018 Cbc With Differential Ord2 RBC 4.74 M/ul 10/20/2018 Cbc With Differential Ord2 HGB 14.4 g/dl 10/20/2018 Cbc With Differential Ord2 Neut% 77.2 % 10/20/2018 Cbc With Differential Ord2 HCT 42.7 % 10/20/2018 Cbc With Differential Ord2 MCV 90.1 fl 10/20/2018 Cbc With Differential Ord2 Lymph% 16.7 % 10/20/2018 Cbc With Differential Ord2 MCH 30.4 pg 10/20/2018 Cbc With Differential Ord2 Converse% 5.7 % 10/20/2018 Cbc With Differential Ord2 Eos% 0.3 % 10/20/2018 Cbc With Differential Ord2 MCHC 33.7 pg 10/20/2018 Cbc With Differential Ord2 PLT 229 K/ul 10/20/2018 Cbc With Differential Ord2 Baso% 0.1 % 10/20/2018 Cbc With Differential Ord2 Neut ABS# 7.81 K/ul 10/20/2018 Cbc With Differential Ord2 RDW 15.7 % 10/20/2018 Cbc With Differential Ord2 Lymph ABS# 1.69 K/ul 10/20/2018 Cbc With Differential Ord2 Converse ABS# 0.6 K/ul 10/20/2018 Cbc With Differential Ord2 Eos ABS# 0.0 K/ul 10/20/2018 Cbc With Differential Ord2 Baso ABS# 0.0 K/ul 10/20/2018 Comp Metabolic Etq597 NA 140 mEq/L 10/20/2018 Comp Metabolic Kxq758 K 4.0 mEq/L 10/20/2018 Comp Metabolic Ntz055 CL 104 mEq/L 10/20/2018 Comp Metabolic Sdm651 CO2 28.0 mEq/L 10/20/2018 Comp Metabolic Ats505 ANION GAP 12 10/20/2018 Comp Metabolic Kxz194 GLUCOSE 113 mg/dL 10/20/2018 Comp Metabolic Sit535 Creat 1.0 mg/dL 10/20/2018 Comp Metabolic Hhq217 eGFR 75 ml/min/1.73m2 10/20/2018 Comp Metabolic Gfl897 BUN 18 mg/dL 10/20/2018 Comp Metabolic Xer933 B/C Ratio 17.8 Ratio 10/20/2018 Comp Metabolic Jwa835 CALCIUM 9.8 mg/dL 10/20/2018 Comp Metabolic Zqx281 ALK PHOS 70 U/L 10/20/2018 Comp Metabolic Fqp302 AST(SGOT) 15 U/L 10/20/2018 Comp Metabolic Zrt482 ALT(SGPT) 18 U/L 10/20/2018 Comp Metabolic Fgb813 BILI T 1.1 mg/dL 10/20/2018 Comp Metabolic Ztc807 ALBUMIN 4.4 g/dL 10/20/2018 Comp Metabolic Wbb409 TPRO 6.9 g/dL 10/20/2018 Comp Metabolic Tby511 GLOB 2.5 g/dL 10/20/2018 Comp Metabolic Pik224 A/G Ratio 1.7 Ratio 10/20/2018 Comp Metabolic Jpd245 Osmo 282 mOsmo 10/20/2018 Urinalysis Ord28 U-Color Yellow 07/14/2018 Urinalysis Ord28 U-Clarity Clear 07/14/2018 Urinalysis Ord28 U-Gluc Negative 07/14/2018 Urinalysis Ord28 U-Bili Negative 07/14/2018 Urinalysis Ord28 U-Ketone Negative 07/14/2018 Urinalysis Ord28 U-SG 1.015 07/14/2018 Urinalysis Ord28 U-Blood Trace-intact 07/14/2018 Urinalysis Ord28 U-pH 7.0 07/14/2018 Urinalysis Ord28 U-Protein Negative 07/14/2018 Urinalysis Ord28 U-Urobilin 0.2 E.U./dL E.U./dL 07/14/2018 Urinalysis Ord28 U-Nitrites Negative 07/14/2018 Urinalysis Ord28 U-Leuk Negative 07/14/2018 Urinalysis Ord28 U-Bact None 07/14/2018 Urinalysis Ord28 U-Squamous Epi 0-5 per/HPF 07/14/2018 Urinalysis Ord28 U-Crystal None per/HPF 07/14/2018 Urinalysis Ord28 U-Mucus None 07/14/2018 Urinalysis Ord28 U-Renal tubular epi None 07/14/2018 Urinalysis Ord28 U-RBC 0-2 per/HPF 07/14/2018 Urinalysis Ord28 U-Transitional epi None per/HPF 07/14/2018 Urinalysis Ord28 U-WBC None per/HPF 07/14/2018 Urinalysis Ord28 U-Cast None per/HPF 07/14/2018 Urinalysis Ord28 U-VOL VOLUME SUFFICIENT (10mL) 07/14/2018 Urinalysis Ord28 U-Com Urine saved if culture needed (specimen acceptable for 48 hours from collection if refrigerated) 07/14/2018 Urinalysis Ord28 U-Yeast NEGATIVE 07/14/2018 Cbc With Differential Ord2 WBC 5.50 K/ul 07/14/2018 Cbc With Differential Ord2 RBC 4.76 M/ul 07/14/2018 Cbc With Differential Ord2 HGB 13.8 g/dl 07/14/2018 Cbc With Differential Ord2 HCT 42.4 % 07/14/2018 Cbc With Differential Ord2 Neut% 53.0 % 07/14/2018 Cbc With Differential Ord2 MCV 89.1 fl 07/14/2018 Cbc With Differential Ord2 Lymph% 34.9 % 07/14/2018 Cbc With Differential Ord2 MCH 29.0 pg 07/14/2018 Cbc With Differential Ord2 Converse% 7.5 % 07/14/2018 Cbc With Differential Ord2 Eos% 4.2 % 07/14/2018 Cbc With Differential Ord2 MCHC 32.5 pg 07/14/2018 Cbc With Differential Ord2 Baso% 0.4 % 07/14/2018 Cbc With Differential Ord2 PLT 205 K/ul 07/14/2018 Cbc With Differential Ord2 RDW 14.5 % 07/14/2018 Cbc With Differential Ord2 Neut ABS# 2.92 K/ul 07/14/2018 Cbc With Differential Ord2 Lymph ABS# 1.92 K/ul 07/14/2018 Cbc With Differential Ord2 Converse ABS# 0.4 K/ul 07/14/2018 Cbc With Differential Ord2 Eos ABS# 0.2 K/ul 07/14/2018 Cbc With Differential Ord2 Baso ABS# 0.0 K/ul 07/14/2018 Renal Cwd740 NA 140 mEq/L 07/14/2018 Renal Hbu636 K 4.2 mEq/L 07/14/2018 Renal Vjk306 CL 103 mEq/L 07/14/2018 Renal Zlb887 CO2 29.0 mEq/L 07/14/2018 Renal Jfh494 ANION GAP 12 07/14/2018 Renal Aep294 Osmo 280 mOsmo 07/14/2018 Renal Bmg271 GLUCOSE 95 mg/dL 07/14/2018 Renal Nhx712 BUN 15 mg/dL 07/14/2018 Renal Ymt584 Creat 1.2 mg/dL 07/14/2018 Renal Bla037 eGFR 64 ml/min/1.73m2 07/14/2018 Renal Otp917 B/C Ratio 12.8 Ratio 07/14/2018 Renal Nfp394 CALCIUM 9.6 mg/dL 07/14/2018 Renal Mwr314 PHOS 3.2 mg/dL 07/14/2018 Renal Gml244 ALBUMIN 4.4 g/dL 07/14/2018 Magnesium Ord90 Mag 1.9 mg/dL 06/08/2018 Cbc With Differential Ord2 WBC 6.19 K/ul 06/08/2018 Cbc With Differential Ord2 RBC 4.31 M/ul 06/08/2018 Cbc With Differential Ord2 HGB 12.8 g/dl 06/08/2018 Cbc With Differential Ord2 Neut% 53.9 % 06/08/2018 Cbc With Differential Ord2 HCT 38.9 % 06/08/2018 Cbc With Differential Ord2 MCV 90.3 fl 06/08/2018 Cbc With Differential Ord2 Lymph% 34.6 % 06/08/2018 Cbc With Differential Ord2 MCH 29.7 pg 06/08/2018 Cbc With Differential Ord2 Converse% 8.7 % 06/08/2018 Cbc With Differential Ord2 Eos% 2.6 % 06/08/2018 Cbc With Differential Ord2 MCHC 32.9 pg 06/08/2018 Cbc With Differential Ord2 PLT 257 K/ul 06/08/2018 Cbc With Differential Ord2 Baso% 0.2 % 06/08/2018 Cbc With Differential Ord2 RDW 14.3 % 06/08/2018 Cbc With Differential Ord2 Neut ABS# 3.34 K/ul 06/08/2018 Cbc With Differential Ord2 Lymph ABS# 2.14 K/ul 06/08/2018 Cbc With Differential Ord2 Converse ABS# 0.5 K/ul 06/08/2018 Cbc With Differential Ord2 Eos ABS# 0.2 K/ul 06/08/2018 Cbc With Differential Ord2 Baso ABS# 0.0 K/ul 06/08/2018 Comp Metabolic Ybf519 NA 139 mEq/L 06/08/2018 Comp Metabolic Ani625 K 4.6 mEq/L 06/08/2018 Comp Metabolic Urn377 CL 105 mEq/L 06/08/2018 Comp Metabolic Kzg193 CO2 26.0 mEq/L 06/08/2018 Comp Metabolic Hbu072 ANION GAP 13 06/08/2018 Comp Metabolic Tdz351 GLUCOSE 95 mg/dL 06/08/2018 Comp Metabolic Ejl709 Creat 1.2 mg/dL 06/08/2018 Comp Metabolic Gjs428 eGFR 59 ml/min/1.73m2 06/08/2018 Comp Metabolic Bqt986 BUN 12 mg/dL 06/08/2018 Comp Metabolic Oeg718 B/C Ratio 9.7 Ratio 06/08/2018 Comp Metabolic Zrt714 CALCIUM 9.9 mg/dL 06/08/2018 Comp Metabolic Sli111 ALK PHOS 70 U/L 06/08/2018 Comp Metabolic Lms379 AST(SGOT) 21 U/L 06/08/2018 Comp Metabolic Vof844 ALT(SGPT) 20 U/L 06/08/2018 Comp Metabolic Jbg971 BILI T 1.0 mg/dL 06/08/2018 Comp Metabolic Gbj263 ALBUMIN 4.5 g/dL 06/08/2018 Comp Metabolic Kkr607 TPRO 7.2 g/dL 06/08/2018 Comp Metabolic Lso257 GLOB 2.8 g/dL 06/08/2018 Comp Metabolic Rpa240 A/G Ratio 1.6 Ratio 06/08/2018 Comp Metabolic Wtj993 Osmo 277 mOsmo 06/08/2018 Cbc With Differential Ord2 WBC 5.58 K/ul 05/10/2018 Cbc With Differential Ord2 RBC 3.43 M/ul 05/10/2018 Cbc With Differential Ord2 HGB 10.5 g/dl 05/10/2018 Cbc With Differential Ord2 HCT 31.1 % 05/10/2018 Cbc With Differential Ord2 Neut% 55.1 % 05/10/2018 Cbc With Differential Ord2 MCV 90.7 fl 05/10/2018 Cbc With Differential Ord2 Lymph% 34.8 % 05/10/2018 Cbc With Differential Ord2 MCH 30.6 pg 05/10/2018 Cbc With Differential Ord2 Converse% 6.5 % 05/10/2018 Cbc With Differential Ord2 MCHC 33.8 pg 05/10/2018 Cbc With Differential Ord2 Eos% 3.2 % 05/10/2018 Cbc With Differential Ord2 PLT 330 K/ul 05/10/2018 Cbc With Differential Ord2 Baso% 0.4 % 05/10/2018 Cbc With Differential Ord2 RDW 14.5 % 05/10/2018 Cbc With Differential Ord2 Neut ABS# 3.08 K/ul 05/10/2018 Cbc With Differential Ord2 Lymph ABS# 1.94 K/ul 05/10/2018 Cbc With Differential Ord2 Converse ABS# 0.4 K/ul 05/10/2018 Cbc With Differential Ord2 Eos ABS# 0.2 K/ul 05/10/2018 Cbc With Differential Ord2 Baso ABS# 0.0 K/ul 05/10/2018 Metabolic Ord15 NA 140 mEq/L 05/10/2018 Metabolic Ord15 K 3.5 mEq/L 05/10/2018 Metabolic Ord15 CL 104 mEq/L 05/10/2018 Metabolic Ord15 CO2 26.0 mEq/L 05/10/2018 Metabolic Ord15 GLUCOSE 102 mg/dL 05/10/2018 Metabolic Ord15 BUN 12 mg/dL 05/10/2018 Metabolic Ord15 Creat 1.1 mg/dL 05/10/2018 Metabolic Ord15 B/C Ratio 11.3 Ratio 05/10/2018 Metabolic Ord15 eGFR 71 ml/min/1.73m2 05/10/2018 Metabolic Ord15 Osmo 279 mOsmo 05/10/2018 Metabolic Ord15 ANION GAP 14 05/10/2018 Metabolic Ord15 CALCIUM 8.9 mg/dL 05/10/2018 Total Psa Ord10 PSA 0.92 ng/mL 01/26/2018 Lipid Ord30 CHOL 161 mg/dL 01/26/2018 Lipid Ord30 HDL 38.0 mg/dl 01/26/2018 Lipid Ord30 TRIG 131 mg/dL 01/26/2018 Lipid Ord30 LDL 97 mg/dL 01/26/2018 Lipid Ord30 C/HDL 4.2 Ratio 01/26/2018 Comp Metabolic Ibm332 NA 138 mEq/L 01/26/2018 Comp Metabolic Gqo369 K 4.2 mEq/L 01/26/2018 Comp Metabolic Bcp299 CL 105 mEq/L 01/26/2018 Comp Metabolic Abh419 CO2 23.0 mEq/L 01/26/2018 Comp Metabolic Rqt613 ANION GAP 14 01/26/2018 Comp Metabolic Ljt059 GLUCOSE 89 mg/dL 01/26/2018 Comp Metabolic Vav757 Creat 1.1 mg/dL 01/26/2018 Comp Metabolic Ypu569 eGFR 70 ml/min/1.73m2 01/26/2018 Comp Metabolic Lce965 BUN 18 mg/dL 01/26/2018 Comp Metabolic Wkh277 B/C Ratio 16.8 Ratio 01/26/2018 Comp Metabolic Dch523 CALCIUM 9.2 mg/dL 01/26/2018 Comp Metabolic Fgo409 ALK PHOS 67 U/L 01/26/2018 Comp Metabolic Msh423 AST(SGOT) 31 U/L 01/26/2018 Comp Metabolic Yly405 ALT(SGPT) 23 U/L 01/26/2018 Comp Metabolic Zzd709 BILI T 1.7 mg/dL 01/26/2018 Comp Metabolic Bfg416 ALBUMIN 3.9 g/dL 01/26/2018 Comp Metabolic Gzn469 TPRO 6.7 g/dL 01/26/2018 Comp Metabolic Jjm596 GLOB 2.8 g/dL 01/26/2018 Comp Metabolic Hbh797 A/G Ratio 1.4 Ratio 01/26/2018 Comp Metabolic Cde014 Osmo 277 mOsmo 01/26/2018 Cbc With Differential Ord2 WBC 6.64 K/ul 01/26/2018 Cbc With Differential Ord2 RBC 4.75 M/ul 01/26/2018 Cbc With Differential Ord2 HGB 14.6 g/dl 01/26/2018 Cbc With Differential Ord2 Neut% 54.3 % 01/26/2018 Cbc With Differential Ord2 HCT 43.1 % 01/26/2018 Cbc With Differential Ord2 Lymph% 36.1 % 01/26/2018 Cbc With Differential Ord2 MCV 90.7 fl 01/26/2018 Cbc With Differential Ord2 MCH 30.7 pg 01/26/2018 Cbc With Differential Ord2 Converse% 7.1 % 01/26/2018 Cbc With Differential Ord2 Eos% 2.3 % 01/26/2018 Cbc With Differential Ord2 MCHC 33.9 pg 01/26/2018 Cbc With Differential Ord2 Baso% 0.2 % 01/26/2018 Cbc With Differential Ord2 PLT 217 K/ul 01/26/2018 Cbc With Differential Ord2 RDW 15.1 % 01/26/2018 Cbc With Differential Ord2 Neut ABS# 3.61 K/ul 01/26/2018 Cbc With Differential Ord2 Lymph ABS# 2.40 K/ul 01/26/2018 Cbc With Differential Ord2 Converse ABS# 0.5 K/ul 01/26/2018 Cbc With Differential Ord2 Eos ABS# 0.2 K/ul 01/26/2018 Cbc With Differential Ord2 Baso ABS# 0.0 K/ul 01/26/2018 Tsh Ord6 TSH (3rd IS) 1.81 uIU/mL 01/26/2018 Testosterone Eaj488 Testo 370.3 ng/dL 01/26/2018 C A/B FLU [id number] Influenza A Scr Negative 12/08/2017 C A/B FLU [id number] Influenza B Scr Negative 12/08/2017 C A/B FLU [id number] Influenza Intrp B AG: PRID:PT:NOSE:NOM:IF See Footnote 12/08/2017 Lipid Ord30 CHOL 143 mg/dL 04/11/2017 Lipid Ord30 HDL 36.0 mg/dl 04/11/2017 Lipid Ord30 TRIG 117 mg/dL 04/11/2017 Lipid Ord30 LDL 84 mg/dL 04/11/2017 Lipid Ord30 C/HDL 4.0 Ratio 04/11/2017 Cbc With Differential Ord2 WBC 6.31 K/ul 04/11/2017 Cbc With Differential Ord2 RBC 4.71 M/ul 04/11/2017 Cbc With Differential Ord2 HGB 14.5 g/dl 04/11/2017 Cbc With Differential Ord2 HCT 42.2 % 04/11/2017 Cbc With Differential Ord2 Neut% 58.4 % 04/11/2017 Cbc With Differential Ord2 Lymph% 30.3 % 04/11/2017 Cbc With Differential Ord2 MCV 89.6 fl 04/11/2017 Cbc With Differential Ord2 Converse% 8.1 % 04/11/2017 Cbc With Differential Ord2 MCH 30.8 pg 04/11/2017 Cbc With Differential Ord2 Eos% 3.0 % 04/11/2017 Cbc With Differential Ord2 MCHC 34.4 pg 04/11/2017 Cbc With Differential Ord2 PLT 183 K/ul 04/11/2017 Cbc With Differential Ord2 Baso% 0.2 % 04/11/2017 Cbc With Differential Ord2 Neut ABS# 3.69 K/ul 04/11/2017 Cbc With Differential Ord2 RDW 15.3 % 04/11/2017 Cbc With Differential Ord2 Lymph ABS# 1.91 K/ul 04/11/2017 Cbc With Differential Ord2 Converse ABS# 0.5 K/ul 04/11/2017 Cbc With Differential Ord2 Eos ABS# 0.2 K/ul 04/11/2017 Cbc With Differential Ord2 Baso ABS# 0.0 K/ul 04/11/2017 Comp Metabolic Zbp196 NA 140 mEq/L 04/11/2017 Comp Metabolic Bwx386 K 4.1 mEq/L 04/11/2017 Comp Metabolic Nob547 CL 105 mEq/L 04/11/2017 Comp Metabolic Pbm288 CO2 26.0 mEq/L 04/11/2017 Comp Metabolic Irq517 ANION GAP 13 04/11/2017 Comp Metabolic Vvh344 GLUCOSE 88 mg/dL 04/11/2017 Comp Metabolic Mls963 Creat 1.1 mg/dL 04/11/2017 Comp Metabolic Xhv192 eGFR 66 ml/min/1.73m2 04/11/2017 Comp Metabolic Dzk347 BUN 18 mg/dL 04/11/2017 Comp Metabolic Nih222 B/C Ratio 15.9 Ratio 04/11/2017 Comp Metabolic Jkv216 CALCIUM 9.0 mg/dL 04/11/2017 Comp Metabolic Luo201 ALK PHOS 72 U/L 04/11/2017 Comp Metabolic Jvy790 AST(SGOT) 22 U/L 04/11/2017 Comp Metabolic Ztk433 ALT(SGPT) 26 U/L 04/11/2017 Comp Metabolic Cma333 BILI T 1.0 mg/dL 04/11/2017 Comp Metabolic Upu462 ALBUMIN 4.0 g/dL 04/11/2017 Comp Metabolic Udk361 TPRO 6.4 g/dL 04/11/2017 Comp Metabolic Eep648 GLOB 2.4 g/dL 04/11/2017 Comp Metabolic Tqq303 A/G Ratio 1.6 Ratio 04/11/2017 Comp Metabolic Sae729 Osmo 281 mOsmo 04/11/2017 Vitamin D 25 Oh Pqa0233 VITAMIN D, 25 HYDROXY 65.52 ng/mL Cbc With Differential Ord2 WBC 5.81 K/ul 05/18/2016 Cbc With Differential Ord2 RBC 5.08 M/ul 05/18/2016 Cbc With Differential Ord2 HGB 14.5 g/dl 05/18/2016 Cbc With Differential Ord2 HCT 43.3 % 05/18/2016 Cbc With Differential Ord2 Neut% 58.5 % 05/18/2016 Cbc With Differential Ord2 MCV 85.2 fl 05/18/2016 Cbc With Differential Ord2 Lymph% 31.0 % 05/18/2016 Cbc With Differential Ord2 MCH 28.5 pg 05/18/2016 Cbc With Differential Ord2 Converse% 7.2 % 05/18/2016 Cbc With Differential Ord2 Eos% 3.1 % 05/18/2016 Cbc With Differential Ord2 MCHC 33.5 pg 05/18/2016 Cbc With Differential Ord2 PLT 222 K/ul 05/18/2016 Cbc With Differential Ord2 Baso% 0.2 % 05/18/2016 Cbc With Differential Ord2 RDW 15.8 % 05/18/2016 Cbc With Differential Ord2 Neut ABS# 3.40 K/ul 05/18/2016 Cbc With Differential Ord2 Lymph ABS# 1.80 K/ul 05/18/2016 Cbc With Differential Ord2 Converse ABS# 0.4 K/ul 05/18/2016 Cbc With Differential Ord2 Eos ABS# 0.2 K/ul 05/18/2016 Cbc With Differential Ord2 Baso ABS# 0.0 K/ul 05/18/2016 Magnesium Ord90 Mag 2.0 mg/dL 05/18/2016 Renal Mdx722 NA 139 mEq/L 05/18/2016 Renal Izc996 K 4.0 mEq/L 05/18/2016 Renal Hai135 CL 104 mEq/L 05/18/2016 Renal Uqc360 CO2 27.0 mEq/L 05/18/2016 Renal Gmz922 ANION GAP 12 05/18/2016 Renal Cmw275 Osmo 279 mOsmo 05/18/2016 Renal Vqs298 GLUCOSE 91 mg/dL 05/18/2016 Renal Nvp615 BUN 18 mg/dL 05/18/2016 Renal Udo157 Creat 1.3 mg/dL 05/18/2016 Renal Kgl908 eGFR 59 ml/min/1.73m2 05/18/2016 Renal Brh289 B/C Ratio 14.3 Ratio 05/18/2016 Renal Enc604 CALCIUM 9.3 mg/dL 05/18/2016 Renal Zlq099 PHOS 3.2 mg/dL 05/18/2016 Renal Mlb885 ALBUMIN 4.2 g/dL 05/18/2016 Random Urine Protein/Creatinine Ratio Guh5773 U Prot 15.0 mg/dl 05/18/2016 Random Urine Protein/Creatinine Ratio Efl4782 U CREAT 141.0 mg/dL 05/18/2016 Random Urine Protein/Creatinine Ratio Erm9040 R MTP/Creat Ratio 0.11 05/18/2016 Urinalysis Ord28 U-Color Yellow 05/18/2016 Urinalysis Ord28 U-Clarity Clear 05/18/2016 Urinalysis Ord28 U-Gluc Negative 05/18/2016 Urinalysis Ord28 U-Bili Negative 05/18/2016 Urinalysis Ord28 U-Ketone Negative 05/18/2016 Urinalysis Ord28 U-SG 1.020 05/18/2016 Urinalysis Ord28 U-Blood Small 05/18/2016 Urinalysis Ord28 U-pH 6.5 05/18/2016 Urinalysis Ord28 U-Protein Negative 05/18/2016 Urinalysis Ord28 U-Urobilin 0.2 E.U./dL E.U./dL 05/18/2016 Urinalysis Ord28 U-Nitrites Negative 05/18/2016 Urinalysis Ord28 U-Leuk Negative 05/18/2016 Urinalysis Ord28 U-Bact None 05/18/2016 Urinalysis Ord28 U-Squamous Epi 0-5 per/HPF 05/18/2016 Urinalysis Ord28 U-Crystal None per/HPF 05/18/2016 Urinalysis Ord28 U-Mucus None 05/18/2016 Urinalysis Ord28 U-Renal tubular epi None 05/18/2016 Urinalysis Ord28 U-RBC 0-2 per/HPF 05/18/2016 Urinalysis Ord28 U-Transitional epi None per/HPF 05/18/2016 Urinalysis Ord28 U-WBC None per/HPF 05/18/2016 Urinalysis Ord28 U-Cast None per/HPF 05/18/2016 Urinalysis Ord28 U-VOL VOLUME SUFFICIENT (10mL) 05/18/2016 Urinalysis Ord28 U-Yeast NEGATIVE 05/18/2016 Urinalysis Ord28 U-Com Urine saved if culture needed (specimen acceptable for 48 hours from collection if refrigerated) 05/18/2016 Lipid Ord30 CHOL 157 mg/dL 02/19/2016 Lipid Ord30 HDL 37.0 mg/dl 02/19/2016 Lipid Ord30 TRIG 150 mg/dL 02/19/2016 Lipid Ord30 LDL 90 mg/dL 02/19/2016 Lipid Ord30 C/HDL 4.2 Ratio 02/19/2016 Cbc With Differential Ord2 WBC 5.47 K/ul 02/19/2016 Cbc With Differential Ord2 RBC 4.71 M/ul 02/19/2016 Cbc With Differential Ord2 HGB 13.4 g/dl 02/19/2016 Cbc With Differential Ord2 Neut% 51.9 % 02/19/2016 Cbc With Differential Ord2 HCT 40.4 % 02/19/2016 Cbc With Differential Ord2 MCV 85.8 fl 02/19/2016 Cbc With Differential Ord2 Lymph% 34.9 % 02/19/2016 Cbc With Differential Ord2 MCH 28.5 pg 02/19/2016 Cbc With Differential Ord2 Converse% 9.5 % 02/19/2016 Cbc With Differential Ord2 MCHC 33.2 pg 02/19/2016 Cbc With Differential Ord2 Eos% 3.5 % 02/19/2016 Cbc With Differential Ord2 Baso% 0.2 % 02/19/2016 Cbc With Differential Ord2 PLT 221 K/ul 02/19/2016 Cbc With Differential Ord2 RDW 16.4 % 02/19/2016 Cbc With Differential Ord2 Neut ABS# 2.84 K/ul 02/19/2016 Cbc With Differential Ord2 Lymph ABS# 1.91 K/ul 02/19/2016 Cbc With Differential Ord2 Converse ABS# 0.5 K/ul 02/19/2016 Cbc With Differential Ord2 Eos ABS# 0.2 K/ul 02/19/2016 Cbc With Differential Ord2 Baso ABS# 0.0 K/ul 02/19/2016 Cbc With Differential Ord2 New Analyzer Notice Please note new ref ranges starting 10-29-2015 due to implemntation of new five part differential hematolgy analyzer. 02/19/2016 Tsh Ord6 hTSH II 2.10 uIU/mL 02/19/2016 Comp Metabolic Idx289 NA 138 mEq/L 02/19/2016 Comp Metabolic Xaz206 K 3.8 mEq/L 02/19/2016 Comp Metabolic Uhm056 CL 103 mEq/L 02/19/2016 Comp Metabolic Hpc173 CO2 28.0 mEq/L 02/19/2016 Comp Metabolic Yfm647 ANION GAP 11 02/19/2016 Comp Metabolic Wyx507 GLUCOSE 94 mg/dL 02/19/2016 Comp Metabolic Dgu708 Creat 1.0 mg/dL 02/19/2016 Comp Metabolic Yja356 eGFR 75 ml/min/1.73m2 02/19/2016 Comp Metabolic Tbx587 BUN 18 mg/dL 02/19/2016 Comp Metabolic Nvl645 B/C Ratio 17.6 Ratio 02/19/2016 Comp Metabolic Nay547 CALCIUM 9.6 mg/dL 02/19/2016 Comp Metabolic Fwo965 ALK PHOS 93 U/L 02/19/2016 Comp Metabolic Bln617 AST(SGOT) 23 U/L 02/19/2016 Comp Metabolic Poh975 ALT(SGPT) 19 U/L 02/19/2016 Comp Metabolic Eeu061 BILI T 0.8 mg/dL 02/19/2016 Comp Metabolic Dly227 ALBUMIN 4.1 g/dL 02/19/2016 Comp Metabolic Fzp309 TPRO 6.8 g/dL 02/19/2016 Comp Metabolic Jqz315 GLOB 2.7 g/dL 02/19/2016 Comp Metabolic Rjx393 A/G Ratio 1.5 Ratio 02/19/2016 Comp Metabolic Asi563 Osmo 277 mOsmo 02/19/2016 Uric Acid Ord77 Uric A 6.0 mg/dL 02/19/2016 Total Psa Ord10 PSA 0.82 ng/mL 02/19/2016 Comp Metabolic Huu326 NA 140 mEq/L 12/16/2015 Comp Metabolic Lhg362 K 4.0 mEq/L 12/16/2015 Comp Metabolic Ggu172 CL 105 mEq/L 12/16/2015 Comp Metabolic Fly183 CO2 24.0 mEq/L 12/16/2015 Comp Metabolic Udk064 ANION GAP 15 12/16/2015 Comp Metabolic Osr943 GLUCOSE 85 mg/dL 12/16/2015 Comp Metabolic Qko262 Creat 1.2 mg/dL 12/16/2015 Comp Metabolic Oyi291 eGFR 65 ml/min/1.73m2 12/16/2015 Comp Metabolic Zmy652 BUN 14 mg/dL 12/16/2015 Comp Metabolic Cjb664 B/C Ratio 12.1 Ratio 12/16/2015 Comp Metabolic Rwj802 CALCIUM 9.1 mg/dL 12/16/2015 Comp Metabolic Jyb216 ALK PHOS 162 U/L 12/16/2015 Comp Metabolic Cjv733 AST(SGOT) 14 U/L 12/16/2015 Comp Metabolic Zik725 ALT(SGPT) 17 U/L 12/16/2015 Comp Metabolic Wto734 BILI T 1.0 mg/dL 12/16/2015 Comp Metabolic Dqt241 ALBUMIN 3.4 g/dL 12/16/2015 Comp Metabolic Kwn084 TPRO 6.2 g/dL 12/16/2015 Comp Metabolic Zxo597 GLOB 2.9 g/dL 12/16/2015 Comp Metabolic Tyb738 A/G Ratio 1.2 Ratio 12/16/2015 Comp Metabolic Mcb321 Osmo 279 mOsmo 12/16/2015 Uric Acid Ord77 Uric A 6.1 mg/dL 12/16/2015 Cbc With Differential Ord2 WBC 5.08 K/ul 12/16/2015 Cbc With Differential Ord2 RBC 3.91 M/ul 12/16/2015 Cbc With Differential Ord2 HGB 11.0 g/dl 12/16/2015 Cbc With Differential Ord2 Neut% 59.3 % 12/16/2015 Cbc With Differential Ord2 HCT 34.8 % 12/16/2015 Cbc With Differential Ord2 MCV 89.0 fl 12/16/2015 Cbc With Differential Ord2 Lymph% 29.9 % 12/16/2015 Cbc With Differential Ord2 Converse% 7.5 % 12/16/2015 Cbc With Differential Ord2 MCH 28.1 pg 12/16/2015 Cbc With Differential Ord2 Eos% 3.1 % 12/16/2015 Cbc With Differential Ord2 MCHC 31.6 pg 12/16/2015 Cbc With Differential Ord2 Baso% 0.2 % 12/16/2015 Cbc With Differential Ord2 PLT 231 K/ul 12/16/2015 Cbc With Differential Ord2 RDW 14.7 % 12/16/2015 Cbc With Differential Ord2 Neut ABS# 3.01 K/ul 12/16/2015 Cbc With Differential Ord2 Lymph ABS# 1.52 K/ul 12/16/2015 Cbc With Differential Ord2 Converse ABS# 0.4 K/ul 12/16/2015 Cbc With Differential Ord2 Eos ABS# 0.2 K/ul 12/16/2015 Cbc With Differential Ord2 Baso ABS# 0.0 K/ul 12/16/2015 Cbc With Differential Ord2 New Analyzer Notice Please note new ref ranges starting 10-29-2015 due to implemntation of new five part differential hematolgy analyzer. 12/16/2015 Lipid Ord30 CHOL 156 mg/dL 07/21/2015 Lipid Ord30 HDL 39.0 mg/dl 07/21/2015 Lipid Ord30 TRIG 127 mg/dL 07/21/2015 Lipid Ord30 LDL 92 mg/dL 07/21/2015 Lipid Ord30 C/HDL 4.0 Ratio 07/21/2015 Urine Protein 24Hr Jua402 U Prot 5.1 mg/dl 05/16/2015 Urine Protein 24Hr Bds779 U Prot24 71.5 mg/24hr 05/16/2015 Total Volume Urine Jnv857 TV/24hr 1400 ml 05/16/2015 Total Psa Ord10 PSA 0.70 ng/mL 05/15/2015 Renal Ker017 NA 135 mEq/L 05/15/2015 Renal Jbs253 K 3.9 mEq/L 05/15/2015 Renal Chs388 CL 101 mEq/L 05/15/2015 Renal Rop878 CO2 27.0 mEq/L 05/15/2015 Renal Lbb379 ANION GAP 11 05/15/2015 Renal Aym428 Osmo 274 mOsmo 05/15/2015 Renal Foy469 GLUCOSE 132 mg/dL 05/15/2015 Renal Ooa299 BUN 19 mg/dL 05/15/2015 Renal Cue796 Creat 1.1 mg/dL 05/15/2015 Renal Ajs880 eGFR 67 ml/min/1.73m2 05/15/2015 Renal Hmu094 B/C Ratio 17.0 Ratio 05/15/2015 Renal Uup218 CALCIUM 9.6 mg/dL 05/15/2015 Renal Jhk537 PHOS 3.0 mg/dL 05/15/2015 Renal Zpj424 ALBUMIN 4.3 g/dL 05/15/2015 Cbc With Differential Ord2 WBC 5.1 K/uL 05/15/2015 Cbc With Differential Ord2 LYM 1.7 K/uL 05/15/2015 Cbc With Differential Ord2 LYM% 32.8 % 05/15/2015 Cbc With Differential Ord2 NEUT/GRAN 3.1 K/uL 05/15/2015 Cbc With Differential Ord2 NEUT/GRAN % 60.7 % 05/15/2015 Cbc With Differential Ord2 MID 0.3 K/uL 05/15/2015 Cbc With Differential Ord2 MID% 6.5 % 05/15/2015 Cbc With Differential Ord2 RBC 4.40 M/uL 05/15/2015 Cbc With Differential Ord2 HGB 13.5 g/dL 05/15/2015 Cbc With Differential Ord2 HCT 40.7 % 05/15/2015 Cbc With Differential Ord2 MCV 93 fL 05/15/2015 Cbc With Differential Ord2 MCH 31 pg 05/15/2015 Cbc With Differential Ord2 MCHC 33 g/dL 05/15/2015 Cbc With Differential Ord2 PLT 202 K/uL 05/15/2015 Cbc With Differential Ord2 RDW 15.4 % 05/15/2015 Review of Systems System Result Effective Dates Constitutional No recent illness 2018 Constitutional No night sweats 2018 Constitutional No chills 12/13/2018 Constitutional No diaphoresis 12/13/2018 Constitutional fatigue 12/13/2018 Constitutional No fever 12/13/2018 Constitutional No insomnia 12/13/2018 Constitutional malaise 12/13/2018 Ears/Nose/Throat/Neck dizziness 2018 Ears/Nose/Throat/Neck headache 2018 Cardiovascular No chest pain/pressure Cardiovascular dyspnea 12/13/2018 Cardiovascular No edema 12/13/2018 Respiratory No cough 12/13/2018 Gastrointestinal No abdominal pain 2018 Genitourinary/Nephrology No dysuria 12/13 Musculoskeletal joint complaint 2018 Neurologic No alteration of consciousness 12/13/2018 Neurologic dizziness 12/13/2018 Psychiatric anxiety 12/13/2018 Neurologic memory loss 12/13/2018 Neurologic weakness 12/13/2018 Constitutional fatigue 11/27/2018 Constitutional recent illness 11/27/2018 Constitutional anorexia 11/27/2018 Constitutional No night sweats 2018 Constitutional No chills 11/27/2018 Constitutional No diaphoresis 11/27/2018 Constitutional No fever 11/27/2018 Constitutional No insomnia 11/27/2018 Constitutional No malaise 11/27/2018 Constitutional weight loss 11/27/2018 Constitutional No weight gain 11/27/2018 Eyes No eye discharge 11/27/2018 Ears/Nose/Throat/Neck dizziness 2018 Ears/Nose/Throat/Neck headache 2018 Cardiovascular No chest pain/pressure 08/2019 Cardiovascular dyspnea 11/27/2018 Cardiovascular No edema 11/27/2018 Respiratory No cough 11/27/2018 Gastrointestinal No abdominal pain 2018 Genitourinary/Nephrology No dysuria 11/27 Musculoskeletal joint complaint 2018 Dermatologic No rash 11/27/2018 Neurologic No alteration of consciousness 11/27/2018 Psychiatric anxiety 11/27/2018 Neurologic dizziness 11/27/2018 Endocrine No dry or coarse skin 2018 Hematologic/Lymphatic No abnormal ecchymoses 11/27/2018 Constitutional No chills 09/26/2018 Constitutional No diaphoresis 09/26/2018 Constitutional No fatigue 09/26/2018 Constitutional No fever 09/26/2018 Constitutional insomnia 09/26/2018 Eyes No blindness 09/26/2018 Eyes No vision change 09/26/2018 Ears/Nose/Throat/Neck No dizziness 2017 Ears/Nose/Throat/Neck hearing loss 2017 Ears/Nose/Throat/Neck nasal allergies 08/2018 Ears/Nose/Throat/Neck No sore throat 08/2018 Cardiovascular No chest pain/pressure 08/2018 Cardiovascular No edema 09/26/2018 Cardiovascular No exercise intolerance Cardiovascular No fatigue 09/26/2018 Cardiovascular No palpitations 2017 Cardiovascular No syncope 09/26/2018 Respiratory No chest congestion 2017 Respiratory No cough 09/26/2018 Gastrointestinal No abdominal pain 2017 Gastrointestinal No constipation 2017 Gastrointestinal No diarrhea 09/26/2018 Gastrointestinal No nausea 09/26/2018 Gastrointestinal No vomiting 09/26/2018 Genitourinary/Nephrology No dysuria 09/26 Musculoskeletal No stiffness 09/26/2018 Musculoskeletal No swelling 09/26/2018 Musculoskeletal back pain 09/26/2018 Musculoskeletal No muscle weakness 2017 Musculoskeletal No myalgias 09/26/2018 Dermatologic No rash 09/26/2018 Neurologic No alteration of consciousness 09/26/2018 Neurologic dizziness 09/26/2018 Neurologic No mental status change 2017 Neurologic vertigo 09/26/2018 Psychiatric No anxiety 09/26/2018 Psychiatric depression 09/26/2018 Constitutional No recent illness 2017 Genitourinary/Nephrology nocturia 2017 Constitutional No recent illness 2017 Constitutional No chills 08/10/2018 Constitutional No diaphoresis 08/10/2018 Constitutional No fever 08/10/2018 Eyes No eye erythema 08/10/2018 Ears/Nose/Throat/Neck No nasal discharge 08/10/2018 Cardiovascular No chest pain/pressure Cardiovascular No dyspnea 08/10/2018 Respiratory No cough 08/10/2018 Respiratory No dyspnea 08/10/2018 Neurologic No alteration of consciousness 08/10/2018 Neurologic No mental status change 2017 Constitutional No chills 07/26/2018 Constitutional No diaphoresis 07/26/2018 Constitutional No fatigue 07/26/2018 Constitutional No fever 07/26/2018 Constitutional insomnia 07/26/2018 Eyes No blindness 07/26/2018 Eyes No vision change 07/26/2018 Ears/Nose/Throat/Neck No dizziness 2017 Ears/Nose/Throat/Neck hearing loss 2017 Ears/Nose/Throat/Neck nasal allergies 07/2018 Ears/Nose/Throat/Neck No sore throat 07/2018 Cardiovascular No chest pain/pressure 07/2018 Cardiovascular No edema 07/26/2018 Cardiovascular No exercise intolerance Cardiovascular No fatigue 07/26/2018 Cardiovascular No palpitations 2017 Cardiovascular No syncope 07/26/2018 Respiratory No chest congestion 2017 Respiratory No cough 07/26/2018 Gastrointestinal No abdominal pain 2017 Gastrointestinal No constipation 2017 Gastrointestinal No diarrhea 07/26/2018 Gastrointestinal No nausea 07/26/2018 Gastrointestinal No vomiting 07/26/2018 Genitourinary/Nephrology No dysuria 07/26 Musculoskeletal No stiffness 07/26/2018 Musculoskeletal No swelling 07/26/2018 Musculoskeletal back pain 07/26/2018 Musculoskeletal No muscle weakness 2017 Musculoskeletal No myalgias 07/26/2018 Dermatologic No rash 07/26/2018 Neurologic No alteration of consciousness 07/26/2018 Neurologic No mental status change 2017 Psychiatric No anxiety 07/26/2018 Psychiatric depression 07/26/2018 Constitutional recent illness 07/26/2018 Neurologic dizziness 07/26/2018 Neurologic vertigo 07/26/2018 Constitutional No chills 06/12/2018 Constitutional No diaphoresis 06/12/2018 Constitutional fatigue 06/12/2018 Constitutional No fever 06/12/2018 Constitutional insomnia 06/12/2018 Eyes No blindness 06/12/2018 Eyes No vision change 06/12/2018 Ears/Nose/Throat/Neck No dizziness 2017 Ears/Nose/Throat/Neck hearing loss 2017 Ears/Nose/Throat/Neck nasal allergies Ears/Nose/Throat/Neck No sore throat Cardiovascular No chest pain/pressure Cardiovascular No edema 06/12/2018 Cardiovascular No exercise intolerance Cardiovascular fatigue 06/12/2018 Cardiovascular No palpitations 2017 Cardiovascular No syncope 06/12/2018 Respiratory No chest congestion 2017 Respiratory No cough 06/12/2018 Gastrointestinal No abdominal pain 2017 Gastrointestinal No constipation 2017 Gastrointestinal No diarrhea 06/12/2018 Genitourinary/Nephrology No dysuria 06/12 Musculoskeletal No stiffness 06/12/2018 Musculoskeletal No swelling 06/12/2018 Musculoskeletal back pain 06/12/2018 Musculoskeletal No muscle weakness 2017 Musculoskeletal No myalgias 06/12/2018 Dermatologic No rash 06/12/2018 Neurologic No alteration of consciousness 06/12/2018 Neurologic No mental status change 2017 Psychiatric No anxiety 06/12/2018 Psychiatric depression 06/12/2018 Constitutional No chills 05/10/2018 Constitutional No diaphoresis 05/10/2018 Constitutional fatigue 05/10/2018 Constitutional No fever 05/10/2018 Constitutional insomnia 05/10/2018 Eyes No blindness 05/10/2018 Eyes No vision change 05/10/2018 Ears/Nose/Throat/Neck No dizziness 2017 Ears/Nose/Throat/Neck nasal allergies Ears/Nose/Throat/Neck No sore throat Cardiovascular No chest pain/pressure Cardiovascular No edema 05/10/2018 Cardiovascular No exercise intolerance Cardiovascular No fatigue 05/10/2018 Cardiovascular No palpitations 2017 Cardiovascular No syncope 05/10/2018 Respiratory No chest congestion 2017 Respiratory No cough 05/10/2018 Gastrointestinal No abdominal pain 2017 Gastrointestinal No constipation 2017 Gastrointestinal No diarrhea 05/10/2018 Genitourinary/Nephrology No dysuria 05/10 Genitourinary/Nephrology nocturia 2017 Genitourinary/Nephrology No urinary incontinence 05/10/2018 Musculoskeletal No stiffness 05/10/2018 Musculoskeletal No swelling 05/10/2018 Musculoskeletal No muscle weakness 2017 Musculoskeletal No myalgias 05/10/2018 Dermatologic No rash 05/10/2018 Neurologic No alteration of consciousness 05/10/2018 Neurologic No mental status change 2017 Psychiatric No anxiety 05/10/2018 Psychiatric No depression 05/10/2018 Constitutional recent illness 05/10/2018 Genitourinary/Nephrology urinary urgency 05/10/2018 Constitutional No chills 03/27/2018 Constitutional No diaphoresis 03/27/2018 Constitutional No fatigue 03/27/2018 Constitutional No fever 03/27/2018 Constitutional insomnia 03/27/2018 Eyes No blindness 03/27/2018 Eyes No vision change 03/27/2018 Ears/Nose/Throat/Neck No dizziness 2017 Ears/Nose/Throat/Neck hearing loss 2017 Ears/Nose/Throat/Neck nasal allergies 08/2018 Ears/Nose/Throat/Neck No sore throat 08/2018 Cardiovascular No chest pain/pressure 08/2018 Cardiovascular No edema 03/27/2018 Cardiovascular No exercise intolerance Cardiovascular No fatigue 03/27/2018 Cardiovascular No palpitations 2017 Cardiovascular No syncope 03/27/2018 Respiratory No chest congestion 2017 Respiratory No cough 03/27/2018 Gastrointestinal No abdominal pain 2017 Gastrointestinal No constipation 2017 Gastrointestinal No diarrhea 03/27/2018 Gastrointestinal No nausea 03/27/2018 Gastrointestinal No vomiting 03/27/2018 Genitourinary/Nephrology No dysuria 03/27 Musculoskeletal No stiffness 03/27/2018 Musculoskeletal No swelling 03/27/2018 Musculoskeletal back pain 03/27/2018 Musculoskeletal No muscle weakness 2017 Musculoskeletal No myalgias 03/27/2018 Dermatologic No rash 03/27/2018 Neurologic No alteration of consciousness 03/27/2018 Neurologic No mental status change 2017 Psychiatric No anxiety 03/27/2018 Psychiatric depression 03/27/2018 Constitutional No chills 01/24/2018 Constitutional No diaphoresis 01/24/2018 Constitutional No fatigue 01/24/2018 Constitutional No fever 01/24/2018 Constitutional insomnia 01/24/2018 Eyes No blindness 01/24/2018 Eyes No vision change 01/24/2018 Ears/Nose/Throat/Neck No dizziness 2017 Ears/Nose/Throat/Neck hearing loss 2017 Ears/Nose/Throat/Neck nasal allergies 07/2018 Ears/Nose/Throat/Neck No sore throat 07/2018 Cardiovascular No chest pain/pressure 07/2018 Cardiovascular No edema 01/24/2018 Cardiovascular No exercise intolerance Cardiovascular No fatigue 01/24/2018 Cardiovascular No palpitations 2017 Cardiovascular No syncope 01/24/2018 Respiratory No chest congestion 2017 Respiratory No cough 01/24/2018 Gastrointestinal No abdominal pain 2017 Gastrointestinal No constipation 2017 Gastrointestinal No diarrhea 01/24/2018 Gastrointestinal No nausea 01/24/2018 Gastrointestinal No vomiting 01/24/2018 Genitourinary/Nephrology No dysuria 01/24 Genitourinary/Nephrology urinary urgency 01/24/2018 Genitourinary/Nephrology urinary incontinence 01/24/2018 Genitourinary/Nephrology urinary retention/hesitancy 01/24/2018 Musculoskeletal No stiffness 01/24/2018 Musculoskeletal No swelling 01/24/2018 Musculoskeletal back pain 01/24/2018 Musculoskeletal No muscle weakness 2017 Musculoskeletal No myalgias 01/24/2018 Dermatologic No rash 01/24/2018 Neurologic No alteration of consciousness 01/24/2018 Neurologic No mental status change 2017 Psychiatric No anxiety 01/24/2018 Psychiatric depression 01/24/2018 Genitourinary/Nephrology impotence 2017 Constitutional recent illness 12/08/2017 Constitutional chills 12/08/2017 Constitutional fatigue 12/08/2017 Constitutional fever 12/08/2017 Constitutional malaise 12/08/2017 Eyes No eye erythema 12/08/2017 Ears/Nose/Throat/Neck nasal allergies Ears/Nose/Throat/Neck nasal discharge Ears/Nose/Throat/Neck sore throat 2017 Ears/Nose/Throat/Neck sinus congestion Ears/Nose/Throat/Neck postnasal drip Cardiovascular No chest pain/pressure Respiratory cough 12/08/2017 Respiratory No chest congestion 2017 Respiratory No dyspnea 12/08/2017 Gastrointestinal No abdominal pain 2017 Dermatologic No rash 12/08/2017 Neurologic No alteration of consciousness 12/08/2017 Neurologic No mental status change 2017 Constitutional No chills 10/27/2017 Constitutional No diaphoresis 10/27/2017 Constitutional No fatigue 10/27/2017 Constitutional No fever 10/27/2017 Constitutional insomnia 10/27/2017 Eyes No blindness 10/27/2017 Eyes No vision change 10/27/2017 Ears/Nose/Throat/Neck No dizziness 2017 Ears/Nose/Throat/Neck hearing loss 2017 Ears/Nose/Throat/Neck nasal allergies 08/2018 Ears/Nose/Throat/Neck No sore throat 08/2018 Cardiovascular No chest pain/pressure 08/2018 Cardiovascular No edema 10/27/2017 Cardiovascular No exercise intolerance Cardiovascular No fatigue 10/27/2017 Cardiovascular No palpitations 2017 Cardiovascular No syncope 10/27/2017 Respiratory No chest congestion 2017 Respiratory No cough 10/27/2017 Gastrointestinal No abdominal pain 2017 Gastrointestinal No constipation 2017 Gastrointestinal No diarrhea 10/27/2017 Gastrointestinal No nausea 10/27/2017 Gastrointestinal No vomiting 10/27/2017 Genitourinary/Nephrology No dysuria 10/27 Genitourinary/Nephrology urinary urgency 10/27/2017 Genitourinary/Nephrology urinary incontinence 10/27/2017 Genitourinary/Nephrology urinary retention/hesitancy 10/27/2017 Musculoskeletal No stiffness 10/27/2017 Musculoskeletal No swelling 10/27/2017 Musculoskeletal back pain 10/27/2017 Musculoskeletal No muscle weakness 2017 Musculoskeletal No myalgias 10/27/2017 Dermatologic No rash 10/27/2017 Neurologic No alteration of consciousness 10/27/2017 Neurologic No mental status change 2017 Psychiatric No anxiety 10/27/2017 Psychiatric depression 10/27/2017 Constitutional No chills 09/29/2017 Constitutional No diaphoresis 09/29/2017 Constitutional No fatigue 09/29/2017 Constitutional No fever 09/29/2017 Constitutional insomnia 09/29/2017 Eyes No blindness 09/29/2017 Eyes No vision change 09/29/2017 Ears/Nose/Throat/Neck No dizziness 2016 Ears/Nose/Throat/Neck hearing loss 2016 Ears/Nose/Throat/Neck nasal allergies Ears/Nose/Throat/Neck No sore throat Cardiovascular No chest pain/pressure Cardiovascular No edema 09/29/2017 Cardiovascular No exercise intolerance Cardiovascular No fatigue 09/29/2017 Cardiovascular No palpitations 2016 Cardiovascular No syncope 09/29/2017 Respiratory No chest congestion 2016 Respiratory No cough 09/29/2017 Gastrointestinal No abdominal pain 2016 Gastrointestinal No constipation 2016 Gastrointestinal No diarrhea 09/29/2017 Gastrointestinal No nausea 09/29/2017 Gastrointestinal No vomiting 09/29/2017 Genitourinary/Nephrology No dysuria 09/29 Genitourinary/Nephrology urinary urgency 09/29/2017 Genitourinary/Nephrology urinary incontinence 09/29/2017 Genitourinary/Nephrology urinary retention/hesitancy 09/29/2017 Musculoskeletal No stiffness 09/29/2017 Musculoskeletal No swelling 09/29/2017 Musculoskeletal back pain 09/29/2017 Musculoskeletal No muscle weakness 2016 Musculoskeletal No myalgias 09/29/2017 Dermatologic No rash 09/29/2017 Neurologic No alteration of consciousness 09/29/2017 Neurologic No mental status change 2016 Psychiatric No anxiety 09/29/2017 Psychiatric depression 09/29/2017 Gastrointestinal dysphagia 09/29/2017 Constitutional No chills 09/01/2017 Constitutional No diaphoresis 09/01/2017 Constitutional No fatigue 09/01/2017 Constitutional No fever 09/01/2017 Constitutional insomnia 09/01/2017 Eyes No blindness 09/01/2017 Eyes No vision change 09/01/2017 Ears/Nose/Throat/Neck No dizziness 2016 Ears/Nose/Throat/Neck hearing loss 2016 Ears/Nose/Throat/Neck nasal allergies Ears/Nose/Throat/Neck No sore throat Cardiovascular No chest pain/pressure Cardiovascular No edema 09/01/2017 Cardiovascular No exercise intolerance Cardiovascular No fatigue 09/01/2017 Cardiovascular No palpitations 2016 Cardiovascular No syncope 09/01/2017 Respiratory No chest congestion 2016 Respiratory No cough 09/01/2017 Gastrointestinal No abdominal pain 2016 Gastrointestinal No constipation 2016 Gastrointestinal No diarrhea 09/01/2017 Gastrointestinal No nausea 09/01/2017 Gastrointestinal No vomiting 09/01/2017 Genitourinary/Nephrology No dysuria 09/01 Genitourinary/Nephrology urinary urgency 09/01/2017 Genitourinary/Nephrology urinary incontinence 09/01/2017 Genitourinary/Nephrology urinary retention/hesitancy 09/01/2017 Musculoskeletal No stiffness 09/01/2017 Musculoskeletal No swelling 09/01/2017 Musculoskeletal back pain 09/01/2017 Musculoskeletal No muscle weakness 2016 Musculoskeletal No myalgias 09/01/2017 Dermatologic No rash 09/01/2017 Neurologic No alteration of consciousness 09/01/2017 Neurologic No mental status change 2016 Psychiatric No anxiety 09/01/2017 Psychiatric depression 09/01/2017 Constitutional No recent illness 2016 Constitutional No chills 08/03/2017 Constitutional No diaphoresis 08/03/2017 Constitutional No fever 08/03/2017 Eyes No eye erythema 08/03/2017 Ears/Nose/Throat/Neck No nasal discharge 08/03/2017 Cardiovascular No chest pain/pressure Cardiovascular No dyspnea 08/03/2017 Respiratory No cough 08/03/2017 Respiratory No dyspnea 08/03/2017 Neurologic No alteration of consciousness 08/03/2017 Neurologic No mental status change 2016 Constitutional No chills 04/26/2017 Constitutional No diaphoresis 04/26/2017 Constitutional No fatigue 04/26/2017 Constitutional No fever 04/26/2017 Constitutional insomnia 04/26/2017 Eyes No blindness 04/26/2017 Eyes No vision change 04/26/2017 Ears/Nose/Throat/Neck No dizziness 2016 Ears/Nose/Throat/Neck hearing loss 2016 Ears/Nose/Throat/Neck nasal allergies 08/2017 Ears/Nose/Throat/Neck No sore throat 08/2017 Cardiovascular No chest pain/pressure 08/2017 Cardiovascular No edema 04/26/2017 Cardiovascular No exercise intolerance Cardiovascular No fatigue 04/26/2017 Cardiovascular No palpitations 2016 Cardiovascular No syncope 04/26/2017 Respiratory No chest congestion 2016 Respiratory No cough 04/26/2017 Gastrointestinal No abdominal pain 2016 Gastrointestinal No constipation 2016 Gastrointestinal No diarrhea 04/26/2017 Gastrointestinal No nausea 04/26/2017 Gastrointestinal No vomiting 04/26/2017 Genitourinary/Nephrology No dysuria 04/26 Genitourinary/Nephrology urinary urgency 04/26/2017 Genitourinary/Nephrology urinary incontinence 04/26/2017 Genitourinary/Nephrology urinary retention/hesitancy 04/26/2017 Musculoskeletal No stiffness 04/26/2017 Musculoskeletal No swelling 04/26/2017 Musculoskeletal No muscle weakness 2016 Musculoskeletal No myalgias 04/26/2017 Dermatologic No rash 04/26/2017 Neurologic No alteration of consciousness 04/26/2017 Neurologic No mental status change 2016 Psychiatric No anxiety 04/26/2017 Psychiatric depression 04/26/2017 Musculoskeletal back pain 04/26/2017 Constitutional No chills 01/25/2017 Constitutional No diaphoresis 01/25/2017 Constitutional No fatigue 01/25/2017 Constitutional No fever 01/25/2017 Constitutional insomnia 01/25/2017 Eyes No blindness 01/25/2017 Eyes No vision change 01/25/2017 Ears/Nose/Throat/Neck No dizziness 2016 Ears/Nose/Throat/Neck hearing loss 2016 Ears/Nose/Throat/Neck nasal allergies 08/2017 Ears/Nose/Throat/Neck No sore throat 08/2017 Cardiovascular No chest pain/pressure 08/2017 Cardiovascular No edema 01/25/2017 Cardiovascular No exercise intolerance Cardiovascular No fatigue 01/25/2017 Cardiovascular No palpitations 2016 Cardiovascular No syncope 01/25/2017 Respiratory No chest congestion 2016 Respiratory No cough 01/25/2017 Gastrointestinal No abdominal pain 2016 Gastrointestinal No constipation 2016 Gastrointestinal No diarrhea 01/25/2017 Gastrointestinal No nausea 01/25/2017 Gastrointestinal No vomiting 01/25/2017 Genitourinary/Nephrology No dysuria 01/25 Genitourinary/Nephrology nocturia 2016 Genitourinary/Nephrology urinary urgency 01/25/2017 Genitourinary/Nephrology urinary frequency 01/25/2017 Genitourinary/Nephrology urinary incontinence 01/25/2017 Genitourinary/Nephrology urinary retention/hesitancy 01/25/2017 Musculoskeletal No stiffness 01/25/2017 Musculoskeletal No swelling 01/25/2017 Musculoskeletal No muscle weakness 2016 Musculoskeletal No myalgias 01/25/2017 Dermatologic No rash 01/25/2017 Neurologic No alteration of consciousness 01/25/2017 Neurologic No mental status change 2016 Psychiatric No anxiety 01/25/2017 Psychiatric depression 01/25/2017 Constitutional No chills 10/26/2016 Constitutional No diaphoresis 10/26/2016 Constitutional No fatigue 10/26/2016 Constitutional No fever 10/26/2016 Constitutional insomnia 10/26/2016 Eyes No blindness 10/26/2016 Eyes No vision change 10/26/2016 Ears/Nose/Throat/Neck No dizziness 2016 Ears/Nose/Throat/Neck hearing loss 2016 Ears/Nose/Throat/Neck nasal allergies 07/2017 Ears/Nose/Throat/Neck No sore throat 07/2017 Cardiovascular No chest pain/pressure 07/2017 Cardiovascular No edema 10/26/2016 Cardiovascular No exercise intolerance Cardiovascular No fatigue 10/26/2016 Cardiovascular No palpitations 2016 Cardiovascular No syncope 10/26/2016 Respiratory No chest congestion 2016 Respiratory No cough 10/26/2016 Gastrointestinal No abdominal pain 2016 Gastrointestinal No constipation 2016 Gastrointestinal No diarrhea 10/26/2016 Gastrointestinal No nausea 10/26/2016 Gastrointestinal No vomiting 10/26/2016 Genitourinary/Nephrology No dysuria 10/26 Genitourinary/Nephrology nocturia 2016 Genitourinary/Nephrology urinary urgency 10/26/2016 Genitourinary/Nephrology urinary frequency 10/26/2016 Genitourinary/Nephrology urinary incontinence 10/26/2016 Genitourinary/Nephrology urinary retention/hesitancy 10/26/2016 Musculoskeletal No stiffness 10/26/2016 Musculoskeletal No swelling 10/26/2016 Musculoskeletal No muscle weakness 2016 Musculoskeletal No myalgias 10/26/2016 Dermatologic No rash 10/26/2016 Neurologic No alteration of consciousness 10/26/2016 Neurologic No mental status change 2016 Psychiatric No anxiety 10/26/2016 Psychiatric depression 10/26/2016 Constitutional No chills 09/27/2016 Constitutional No diaphoresis 09/27/2016 Constitutional No fatigue 09/27/2016 Constitutional No fever 09/27/2016 Constitutional insomnia 09/27/2016 Eyes No blindness 09/27/2016 Eyes No vision change 09/27/2016 Ears/Nose/Throat/Neck No dizziness 2015 Ears/Nose/Throat/Neck hearing loss 2015 Ears/Nose/Throat/Neck nasal allergies 09/2016 Ears/Nose/Throat/Neck No sore throat 09/2016 Cardiovascular No chest pain/pressure 09/2016 Cardiovascular No edema 09/27/2016 Cardiovascular No exercise intolerance Cardiovascular No fatigue 09/27/2016 Cardiovascular No palpitations 2015 Cardiovascular No syncope 09/27/2016 Respiratory No chest congestion 2015 Respiratory No cough 09/27/2016 Gastrointestinal No abdominal pain 2015 Gastrointestinal No constipation 2015 Gastrointestinal No diarrhea 09/27/2016 Gastrointestinal No nausea 09/27/2016 Gastrointestinal No vomiting 09/27/2016 Genitourinary/Nephrology No dysuria 09/27 Genitourinary/Nephrology nocturia 2015 Genitourinary/Nephrology urinary urgency 09/27/2016 Genitourinary/Nephrology urinary frequency 09/27/2016 Genitourinary/Nephrology urinary incontinence 09/27/2016 Genitourinary/Nephrology urinary retention/hesitancy 09/27/2016 Musculoskeletal No stiffness 09/27/2016 Musculoskeletal No swelling 09/27/2016 Musculoskeletal No muscle weakness 2015 Musculoskeletal No myalgias 09/27/2016 Dermatologic No rash 09/27/2016 Neurologic No alteration of consciousness 09/27/2016 Neurologic No mental status change 2015 Psychiatric No anxiety 09/27/2016 Psychiatric depression 09/27/2016 Constitutional No chills 06/28/2016 Constitutional No diaphoresis 06/28/2016 Constitutional No fatigue 06/28/2016 Constitutional No fever 06/28/2016 Constitutional insomnia 06/28/2016 Eyes No blindness 06/28/2016 Eyes No vision change 06/28/2016 Ears/Nose/Throat/Neck No dizziness 2015 Ears/Nose/Throat/Neck nasal allergies 09/2016 Ears/Nose/Throat/Neck No sore throat 09/2016 Cardiovascular No chest pain/pressure 09/2016 Cardiovascular No edema 06/28/2016 Cardiovascular No exercise intolerance Cardiovascular No fatigue 06/28/2016 Cardiovascular No palpitations 2015 Cardiovascular No syncope 06/28/2016 Respiratory No chest congestion 2015 Respiratory No cough 06/28/2016 Gastrointestinal No abdominal pain 2015 Gastrointestinal No constipation 2015 Gastrointestinal No diarrhea 06/28/2016 Gastrointestinal No nausea 06/28/2016 Gastrointestinal No vomiting 06/28/2016 Genitourinary/Nephrology No dysuria 06/28 Genitourinary/Nephrology nocturia 2015 Genitourinary/Nephrology urinary urgency 06/28/2016 Genitourinary/Nephrology urinary frequency 06/28/2016 Genitourinary/Nephrology No urinary incontinence 06/28/2016 Genitourinary/Nephrology urinary retention/hesitancy 06/28/2016 Musculoskeletal No stiffness 06/28/2016 Musculoskeletal No swelling 06/28/2016 Musculoskeletal No muscle weakness 2015 Musculoskeletal No myalgias 06/28/2016 Dermatologic No rash 06/28/2016 Neurologic No alteration of consciousness 06/28/2016 Neurologic No mental status change 2015 Ears/Nose/Throat/Neck hearing loss 2015 Dermatologic sores 06/28/2016 Constitutional No chills 04/27/2016 Constitutional No diaphoresis 04/27/2016 Constitutional No fatigue 04/27/2016 Constitutional No fever 04/27/2016 Constitutional insomnia 04/27/2016 Eyes No blindness 04/27/2016 Eyes No vision change 04/27/2016 Ears/Nose/Throat/Neck No dizziness 2015 Ears/Nose/Throat/Neck nasal allergies 09/2016 Ears/Nose/Throat/Neck No sore throat 09/2016 Cardiovascular No chest pain/pressure 09/2016 Cardiovascular No edema 04/27/2016 Cardiovascular No exercise intolerance Cardiovascular No fatigue 04/27/2016 Cardiovascular No palpitations 2015 Cardiovascular No syncope 04/27/2016 Respiratory No chest congestion 2015 Respiratory No cough 04/27/2016 Gastrointestinal No abdominal pain 2015 Gastrointestinal No constipation 2015 Gastrointestinal No diarrhea 04/27/2016 Gastrointestinal No nausea 04/27/2016 Gastrointestinal No vomiting 04/27/2016 Genitourinary/Nephrology No dysuria 04/27 Genitourinary/Nephrology nocturia 2015 Genitourinary/Nephrology urinary urgency 04/27/2016 Genitourinary/Nephrology urinary frequency 04/27/2016 Genitourinary/Nephrology No urinary incontinence 04/27/2016 Genitourinary/Nephrology urinary retention/hesitancy 04/27/2016 Musculoskeletal No stiffness 04/27/2016 Musculoskeletal No swelling 04/27/2016 Musculoskeletal No muscle weakness 2015 Musculoskeletal No myalgias 04/27/2016 Dermatologic No rash 04/27/2016 Neurologic No alteration of consciousness 04/27/2016 Neurologic No mental status change 2015 Constitutional No recent illness 2015 Constitutional No anorexia 02/17/2016 Constitutional No night sweats 2015 Constitutional No chills 02/17/2016 Constitutional No diaphoresis 02/17/2016 Constitutional No fever 02/17/2016 Eyes No blindness 02/17/2016 Eyes No vision change 02/17/2016 Ears/Nose/Throat/Neck No dizziness 2015 Ears/Nose/Throat/Neck nasal allergies 12/2015 Ears/Nose/Throat/Neck No sore throat 12/2015 Cardiovascular No chest pain/pressure 12/2015 Cardiovascular edema 02/17/2016 Cardiovascular No exercise intolerance Cardiovascular No fatigue 02/17/2016 Cardiovascular No palpitations 2015 Cardiovascular No syncope 02/17/2016 Respiratory No chest congestion 2015 Respiratory No cough 02/17/2016 Gastrointestinal No abdominal pain 2015 Gastrointestinal No constipation 2015 Gastrointestinal No diarrhea 02/17/2016 Gastrointestinal No nausea 02/17/2016 Gastrointestinal No vomiting 02/17/2016 Genitourinary/Nephrology No dysuria 02/16 Genitourinary/Nephrology No urinary incontinence 02/17/2016 Musculoskeletal No stiffness 02/17/2016 Musculoskeletal No swelling 02/17/2016 Musculoskeletal No muscle weakness 2015 Musculoskeletal No myalgias 02/17/2016 Neurologic No alteration of consciousness 02/17/2016 Neurologic No mental status change 2015 Psychiatric No anxiety 02/17/2016 Psychiatric No depression 02/17/2016 Dermatologic No erythema 02/17/2016 Constitutional fatigue 02/17/2016 Constitutional No insomnia 02/17/2016 Constitutional No malaise 02/17/2016 Genitourinary/Nephrology nocturia 2015 Musculoskeletal back pain 02/17/2016 Constitutional No recent illness 2015 Constitutional No anorexia 01/20/2016 Constitutional No night sweats 2015 Constitutional No chills 01/20/2016 Constitutional No diaphoresis 01/20/2016 Constitutional fatigue 01/20/2016 Constitutional No fever 01/20/2016 Eyes No blindness 01/20/2016 Eyes No vision change 01/20/2016 Ears/Nose/Throat/Neck No dizziness 2015 Ears/Nose/Throat/Neck nasal allergies 02/2016 Ears/Nose/Throat/Neck No sore throat 02/2016 Cardiovascular No chest pain/pressure 02/2016 Cardiovascular edema 01/20/2016 Cardiovascular No exercise intolerance Cardiovascular No fatigue 01/20/2016 Cardiovascular No palpitations 2015 Cardiovascular No syncope 01/20/2016 Respiratory No chest congestion 2015 Respiratory No cough 01/20/2016 Gastrointestinal No abdominal pain 2015 Gastrointestinal No constipation 2015 Gastrointestinal No diarrhea 01/20/2016 Gastrointestinal No nausea 01/20/2016 Gastrointestinal No vomiting 01/20/2016 Genitourinary/Nephrology No dysuria 01/19 Genitourinary/Nephrology No urinary incontinence 01/20/2016 Musculoskeletal No stiffness 01/20/2016 Musculoskeletal No swelling 01/20/2016 Musculoskeletal No muscle weakness 2015 Musculoskeletal No myalgias 01/20/2016 Dermatologic erythema 01/20/2016 Neurologic No alteration of consciousness 01/20/2016 Neurologic No mental status change 2015 Psychiatric No anxiety 01/20/2016 Psychiatric No depression 01/20/2016 Constitutional No chills 01/06/2016 Constitutional No diaphoresis 01/06/2016 Constitutional fatigue 01/06/2016 Constitutional No fever 01/06/2016 Eyes No blindness 01/06/2016 Eyes No vision change 01/06/2016 Ears/Nose/Throat/Neck No dizziness 2015 Ears/Nose/Throat/Neck nasal allergies Ears/Nose/Throat/Neck No sore throat Cardiovascular No chest pain/pressure Cardiovascular edema 01/06/2016 Cardiovascular No exercise intolerance Cardiovascular No fatigue 01/06/2016 Cardiovascular No palpitations 2015 Cardiovascular No syncope 01/06/2016 Respiratory No chest congestion 2015 Respiratory No cough 01/06/2016 Gastrointestinal No abdominal pain 2015 Gastrointestinal No constipation 2015 Gastrointestinal No diarrhea 01/06/2016 Gastrointestinal No nausea 01/06/2016 Gastrointestinal No vomiting 01/06/2016 Genitourinary/Nephrology No dysuria 01/05 Genitourinary/Nephrology No urinary incontinence 01/06/2016 Musculoskeletal No stiffness 01/06/2016 Musculoskeletal No swelling 01/06/2016 Musculoskeletal No muscle weakness 2015 Musculoskeletal No myalgias 01/06/2016 Neurologic No alteration of consciousness 01/06/2016 Neurologic No mental status change 2015 Psychiatric No anxiety 01/06/2016 Psychiatric No depression 01/06/2016 Constitutional No recent illness 2015 Constitutional No anorexia 01/06/2016 Constitutional No night sweats 2015 Dermatologic erythema 01/06/2016 Constitutional No chills 12/16/2015 Constitutional No diaphoresis 12/16/2015 Constitutional No fatigue 12/16/2015 Constitutional No fever 12/16/2015 Eyes No blindness 12/16/2015 Eyes No vision change 12/16/2015 Ears/Nose/Throat/Neck No dizziness 2015 Ears/Nose/Throat/Neck No nasal allergies 12/16/2015 Ears/Nose/Throat/Neck No sore throat 10/2015 Cardiovascular No chest pain/pressure 10/2015 Respiratory No chest congestion 2015 Respiratory No cough 12/16/2015 Gastrointestinal No abdominal pain 2015 Gastrointestinal No constipation 2015 Gastrointestinal No diarrhea 12/16/2015 Gastrointestinal No nausea 12/16/2015 Gastrointestinal No vomiting 12/16/2015 Genitourinary/Nephrology No dysuria 12/15 Neurologic No alteration of consciousness 12/16/2015 Neurologic No mental status change 2015 Psychiatric anxiety 12/16/2015 Psychiatric No depression 12/16/2015 Constitutional No night sweats 2015 Constitutional recent illness 12/16/2015 Constitutional anorexia 12/16/2015 Constitutional malaise 12/16/2015 Cardiovascular dyspnea 12/16/2015 Cardiovascular fatigue 12/16/2015 Respiratory dyspnea on exertion 2015 Musculoskeletal joint complaint 2015 Dermatologic erythema 12/16/2015 Ears/Nose/Throat/Neck hearing loss 2015 Constitutional No night sweats 2015 Constitutional recent illness 11/27/2015 Constitutional anorexia 11/27/2015 Constitutional malaise 11/27/2015 Eyes No eye erythema 11/27/2015 Eyes No vision change 11/27/2015 Ears/Nose/Throat/Neck No dizziness 2015 Ears/Nose/Throat/Neck hearing loss 2015 Ears/Nose/Throat/Neck No nasal allergies 11/27/2015 Ears/Nose/Throat/Neck No sore throat 08/2016 Cardiovascular No chest pain/pressure 08/2016 Cardiovascular dyspnea 11/27/2015 Cardiovascular fatigue 11/27/2015 Respiratory dyspnea on exertion 2015 Gastrointestinal No abdominal pain 2015 Gastrointestinal No constipation 2015 Gastrointestinal No diarrhea 11/27/2015 Gastrointestinal No nausea 11/27/2015 Gastrointestinal No vomiting 11/27/2015 Genitourinary/Nephrology No dysuria 11/27 Neurologic No alteration of consciousness 11/27/2015 Neurologic No mental status change 2015 Psychiatric anxiety 11/27/2015 Psychiatric No depression 11/27/2015 Constitutional fatigue 11/27/2015 Cardiovascular exercise intolerance 11/27 Respiratory dyspnea 11/27/2015 Constitutional No chills 07/30/2015 Constitutional No diaphoresis 07/30/2015 Constitutional No fatigue 07/30/2015 Constitutional No fever 07/30/2015 Constitutional insomnia 07/30/2015 Eyes No blindness 07/30/2015 Eyes No vision change 07/30/2015 Ears/Nose/Throat/Neck No dizziness 2014 Ears/Nose/Throat/Neck nasal allergies Ears/Nose/Throat/Neck No sore throat Cardiovascular No chest pain/pressure Cardiovascular No edema 07/30/2015 Cardiovascular No exercise intolerance Cardiovascular No fatigue 07/30/2015 Cardiovascular No palpitations 2014 Cardiovascular No syncope 07/30/2015 Respiratory No chest congestion 2014 Respiratory No cough 07/30/2015 Gastrointestinal No abdominal pain 2014 Gastrointestinal No constipation 2014 Gastrointestinal No diarrhea 07/30/2015 Gastrointestinal No nausea 07/30/2015 Gastrointestinal No vomiting 07/30/2015 Genitourinary/Nephrology No dysuria 07/30 Genitourinary/Nephrology nocturia 2014 Genitourinary/Nephrology urinary urgency 07/30/2015 Genitourinary/Nephrology urinary frequency 07/30/2015 Genitourinary/Nephrology No urinary incontinence 07/30/2015 Genitourinary/Nephrology urinary retention/hesitancy 07/30/2015 Musculoskeletal No stiffness 07/30/2015 Musculoskeletal No swelling 07/30/2015 Musculoskeletal No muscle weakness 2014 Musculoskeletal No myalgias 07/30/2015 Dermatologic No rash 07/30/2015 Neurologic No alteration of consciousness 07/30/2015 Neurologic No mental status change 2014 Psychiatric No anxiety 07/30/2015 Psychiatric No depression 07/30/2015 Constitutional No chills 06/09/2015 Constitutional No diaphoresis 06/09/2015 Constitutional No fatigue 06/09/2015 Constitutional No fever 06/09/2015 Constitutional insomnia 06/09/2015 Eyes No blindness 06/09/2015 Eyes No vision change 06/09/2015 Ears/Nose/Throat/Neck No dizziness 2014 Ears/Nose/Throat/Neck nasal allergies Ears/Nose/Throat/Neck No sore throat Cardiovascular No chest pain/pressure Cardiovascular No edema 06/09/2015 Cardiovascular No exercise intolerance Cardiovascular No fatigue 06/09/2015 Cardiovascular No palpitations 2014 Cardiovascular No syncope 06/09/2015 Respiratory No chest congestion 2014 Respiratory No cough 06/09/2015 Gastrointestinal No abdominal pain 2014 Gastrointestinal No constipation 2014 Gastrointestinal No diarrhea 06/09/2015 Gastrointestinal No nausea 06/09/2015 Gastrointestinal No vomiting 06/09/2015 Genitourinary/Nephrology No dysuria 06/09 Genitourinary/Nephrology nocturia 2014 Genitourinary/Nephrology urinary urgency 06/09/2015 Genitourinary/Nephrology urinary frequency 06/09/2015 Genitourinary/Nephrology No urinary incontinence 06/09/2015 Genitourinary/Nephrology urinary retention/hesitancy 06/09/2015 Musculoskeletal No stiffness 06/09/2015 Musculoskeletal No swelling 06/09/2015 Musculoskeletal No muscle weakness 2014 Musculoskeletal No myalgias 06/09/2015 Dermatologic No rash 06/09/2015 Neurologic No alteration of consciousness 06/09/2015 Neurologic No mental status change 2014 Gastrointestinal gastroesophageal reflux 06/09/2015 Constitutional No chills 04/29/2015 Constitutional No diaphoresis 04/29/2015 Constitutional No fatigue 04/29/2015 Constitutional No fever 04/29/2015 Constitutional insomnia 04/29/2015 Eyes No blindness 04/29/2015 Eyes No vision change 04/29/2015 Ears/Nose/Throat/Neck No dizziness 2014 Ears/Nose/Throat/Neck nasal allergies Ears/Nose/Throat/Neck No sore throat Cardiovascular No chest pain/pressure Cardiovascular No edema 04/29/2015 Cardiovascular No exercise intolerance Cardiovascular No fatigue 04/29/2015 Cardiovascular No palpitations 2014 Cardiovascular No syncope 04/29/2015 Respiratory No chest congestion 2014 Respiratory No cough 04/29/2015 Gastrointestinal No abdominal pain 2014 Gastrointestinal No constipation 2014 Gastrointestinal No diarrhea 04/29/2015 Gastrointestinal No nausea 04/29/2015 Gastrointestinal No vomiting 04/29/2015 Genitourinary/Nephrology No dysuria 04/29 Genitourinary/Nephrology nocturia 2014 Genitourinary/Nephrology urinary urgency 04/29/2015 Genitourinary/Nephrology urinary frequency 04/29/2015 Genitourinary/Nephrology No urinary incontinence 04/29/2015 Genitourinary/Nephrology urinary retention/hesitancy 04/29/2015 Musculoskeletal No stiffness 04/29/2015 Musculoskeletal No swelling 04/29/2015 Musculoskeletal No muscle weakness 2014 Musculoskeletal No myalgias 04/29/2015 Dermatologic No rash 04/29/2015 Neurologic No alteration of consciousness 04/29/2015 Neurologic No mental status change 2014 Constitutional recent illness 02/19/2015 Genitourinary/Nephrology No dysuria 02/19 Genitourinary/Nephrology nocturia 2014 Genitourinary/Nephrology No urinary incontinence 02/19/2015 Genitourinary/Nephrology urinary frequency 02/19/2015 Genitourinary/Nephrology urinary urgency 02/19/2015 Constitutional insomnia 02/19/2015 Constitutional No chills 02/19/2015 Constitutional No diaphoresis 02/19/2015 Constitutional No fatigue 02/19/2015 Constitutional No fever 02/19/2015 Ears/Nose/Throat/Neck No dizziness 2014 Ears/Nose/Throat/Neck No sore throat 03/2015 Cardiovascular No chest pain/pressure 03/2015 Cardiovascular No edema 02/19/2015 Cardiovascular No exercise intolerance Cardiovascular No fatigue 02/19/2015 Cardiovascular No palpitations 2014 Cardiovascular No syncope 02/19/2015 Respiratory No chest congestion 2014 Respiratory No cough 02/19/2015 Gastrointestinal No abdominal pain 2014 Gastrointestinal No constipation 2014 Gastrointestinal No diarrhea 02/19/2015 Gastrointestinal No nausea 02/19/2015 Gastrointestinal No vomiting 02/19/2015 Dermatologic No rash 02/19/2015 Neurologic No alteration of consciousness 02/19/2015 Neurologic No mental status change 2014 Genitourinary/Nephrology urinary retention/hesitancy 02/19/2015 Musculoskeletal No stiffness 02/19/2015 Musculoskeletal No swelling 02/19/2015 Musculoskeletal No muscle weakness 2014 Musculoskeletal No myalgias 02/19/2015 Eyes No blindness 02/19/2015 Eyes No vision change 02/19/2015 Ears/Nose/Throat/Neck nasal allergies 03/2015 Physical Exam Exam Name System Name Item Name Status Result Effective Dates Notes Full Exam - General 1994 Constitutional general appearance Development: well developed 12/13/2018 None Full Exam - General 1994 Constitutional general appearance Development: appears stated age 0212/13/2018 None Full Exam - General 1995 Constitutional general appearance Hygiene/Attention to Grooming: good hygiene 12/13/2018 None Full Exam - General 1995 Eyes conjunctiva /eyelids Overall: conjunctiva clear 12/13/2018 None Full Exam - General 1994 Eyes conjunctiva /eyelids Overall: cornea clear 12/13/2018 None Full Exam - General 1994 Eyes conjunctiva /eyelids Overall: eyelids normal 12/13/2018 None Full Exam - General 1994 Eyes pupils and irises Overall: pupils equal, round, reactive to light and accomodation 12/13/2018 None Full Exam - General 1994 Ears/Nose/Throat external ear Overall: normal appearance 12/13/2018 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 Full Exam - General 1994 Ears/Nose/Throat lips/teeth/gingiva Overall: normal dentition 12/13/2018 None Full Exam - General 1994 Ears/Nose/Throat lips/teeth/gingiva Lips: stichtes d/i 12/13/2018 None Full Exam - General 1995 Ears/Nose/Throat oral cavity/pharynx/larynx Overall: oral mucosa clear 12/13/2018 None Full Exam - General 1995 Ears/Nose/Throat oral cavity/pharynx/larynx Overall: oropharyngeal mucosa clear 12/13/2018 None Full Exam - General 1995 Ears/Nose/Throat oral cavity/pharynx/larynx Overall: hypopharynx benign 12/13/2018 None Full Exam - General 1995 Ears/Nose/Throat oral cavity/pharynx/larynx Overall: no masses 12/13/2018 None Full Exam - General 1994 Respiratory auscultation Overall: breath sounds clear bilaterally 12/13/2018 None Full Exam - General 1994 Respiratory respiratory effort/rhythm Overall: no retractions 12/13/2018 None Full Exam - General 1994 Respiratory respiratory effort/rhythm Overall: normal rate 12/13/2018 None Full Exam - General 1994 Cardiovascular extremities Overall: no clubbing 12/13/2018 None Full Exam - General 1994 Cardiovascular auscultation of heart Overall: regular rate 12/13/2018 None Full Exam - General 1994 Cardiovascular auscultation of heart Overall: normal heart sounds 12/13/2018 None Full Exam - General 1994 Cardiovascular auscultation of heart Systolic murmur: midsystolic 12/13/2018 None Full Exam - General 1994 Lymphatic neck nodes Overall: anterior cervical chain benign 12/13/2018 None Full Exam - General 1994 Lymphatic neck nodes Overall: posterior cervical chain benign 12/13/2018 None Full Exam - General 1994 Neurologic cranial nerves Overall: crainial nerves 2 - 12 grossly intact 12/13/2018 None Full Exam - General 1994 Psychiatric orientation/consciousness Overall: oriented to person, place and time 12/13/2018 None Full Exam - General 1994 Psychiatric mood and affect Overall: normal mood and affect 12/13/2018 None Full Exam - General 1994 Constitutional general appearance Development: well developed 11/27/2018 None Full Exam - General 1994 Constitutional general appearance Development: appears stated age 0211/27/2018 None Full Exam - General 1994 Constitutional general appearance Hygiene/Attention to Grooming: good hygiene 11/27/2018 None Full Exam - General 1994 Eyes conjunctiva /eyelids Overall: conjunctiva clear 11/27/2018 None Full Exam - General 1994 Eyes conjunctiva /eyelids Overall: cornea clear 11/27/2018 None Full Exam - General 1994 Eyes conjunctiva /eyelids Overall: eyelids normal 11/27/2018 None Full Exam - General 1994 Eyes pupils and irises Overall: pupils equal, round, reactive to light and accomodation 11/27/2018 None Full Exam - General 1994 Ears/Nose/Throat external ear Overall: normal appearance 11/27/2018 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 Full Exam - General 1994 Ears/Nose/Throat lips/teeth/gingiva Overall: normal dentition 11/27/2018 None Full Exam - General 1994 Ears/Nose/Throat lips/teeth/gingiva Lips: stichtes d/i 11/27/2018 None Full Exam - General 1994 Ears/Nose/Throat oral cavity/pharynx/larynx Overall: oral mucosa clear 11/27/2018 None Full Exam - General 1995 Ears/Nose/Throat oral cavity/pharynx/larynx Overall: oropharyngeal mucosa clear 11/27/2018 None Full Exam - General 1995 Ears/Nose/Throat oral cavity/pharynx/larynx Overall: hypopharynx benign 11/27/2018 None Full Exam - General 1994 Ears/Nose/Throat oral cavity/pharynx/larynx Overall: no masses 11/27/2018 None Full Exam - General 1994 Respiratory auscultation Overall: breath sounds clear bilaterally 11/27/2018 None Full Exam - General 1994 Respiratory respiratory effort/rhythm Overall: no retractions 11/27/2018 None Full Exam - General 1994 Respiratory respiratory effort/rhythm Overall: normal rate 11/27/2018 None Full Exam - General 1994 Cardiovascular extremities Overall: no clubbing 11/27/2018 None Full Exam - General 1994 Cardiovascular auscultation of heart Overall: regular rate 11/27/2018 None Full Exam - General 1994 Cardiovascular auscultation of heart Overall: normal heart sounds 11/27/2018 None Full Exam - General 1994 Cardiovascular auscultation of heart Systolic murmur: midsystolic 11/27/2018 None Full Exam - General 1994 Abdomen abdominal exam Overall: no tenderness 11/27/2018 None Full Exam - General 1994 Abdomen abdominal exam Overall: normal bowel sounds 11/27/2018 None Full Exam - General 1994 Lymphatic neck nodes Overall: anterior cervical chain benign 11/27/2018 None Full Exam - General 1994 Lymphatic neck nodes Overall: posterior cervical chain benign 11/27/2018 None Full Exam - General 1994 Neurologic cranial nerves Overall: crainial nerves 2 - 12 grossly intact 11/27/2018 None Full Exam - General 1994 Psychiatric orientation/consciousness Overall: oriented to person, place and time 11/27/2018 None Full Exam - General 1994 Psychiatric mood and affect Overall: normal mood and affect 11/27/2018 None Full Exam - General 1994 Constitutional general appearance Development: well developed 09/26/2018 None Full Exam - General 1994 Constitutional general appearance Development: appears stated age 1209/26/2018 None Full Exam - General 1994 Constitutional general appearance Hygiene/Attention to Grooming: good hygiene 09/26/2018 None Full Exam - General 1994 Eyes conjunctiva /eyelids Overall: conjunctiva clear 09/26/2018 None Full Exam - General 1994 Eyes conjunctiva /eyelids Overall: cornea clear 09/26/2018 None Full Exam - General 1994 Eyes conjunctiva /eyelids Overall: eyelids normal 09/26/2018 None Full Exam - General 1994 Eyes pupils and irises Overall: pupils equal, round, reactive to light and accomodation 09/26/2018 None Full Exam - General 1994 Ears/Nose/Throat external ear Overall: normal appearance 09/26/2018 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 Full Exam - General 1994 Ears/Nose/Throat lips/teeth/gingiva Overall: normal dentition 09/26/2018 None Full Exam - General 1994 Ears/Nose/Throat oral cavity/pharynx/larynx Overall: oral mucosa clear 09/26/2018 None Full Exam - General 1994 Ears/Nose/Throat oral cavity/pharynx/larynx Overall: oropharyngeal mucosa clear 09/26/2018 None Full Exam - General 1994 Ears/Nose/Throat oral cavity/pharynx/larynx Overall: hypopharynx benign 09/26/2018 None Full Exam - General 1994 Ears/Nose/Throat oral cavity/pharynx/larynx Overall: no masses 09/26/2018 None Full Exam - General 1994 Respiratory auscultation Overall: breath sounds clear bilaterally 09/26/2018 None Full Exam - General 1994 Respiratory respiratory effort/rhythm Overall: no retractions 09/26/2018 None Full Exam - General 1994 Respiratory respiratory effort/rhythm Overall: normal rate 09/26/2018 None Full Exam - General 1994 Cardiovascular extremities Overall: no clubbing 09/26/2018 None Full Exam - General 1994 Cardiovascular auscultation of heart Overall: regular rate 09/26/2018 None Full Exam - General 1994 Cardiovascular auscultation of heart Overall: normal heart sounds 09/26/2018 None Full Exam - General 1994 Cardiovascular auscultation of heart Systolic murmur: midsystolic 09/26/2018 None Full Exam - General 1994 Abdomen abdominal exam Overall: no tenderness 09/26/2018 None Full Exam - General 1994 Abdomen abdominal exam Overall: normal bowel sounds 09/26/2018 None Full Exam - General 1994 Abdomen rectal exam Prostate: enlarged 09/26/2018 None Full Exam - General 1994 Abdomen stool sample obtained Overall: normal appearance 09/26/2018 None Full Exam - General 1994 Abdomen stool sample obtained Overall: occult blood negative 09/26/2018 None Full Exam - General 1994 Neurologic cranial nerves Overall: crainial nerves 2 - 12 grossly intact 09/26/2018 None Full Exam - General 1994 Psychiatric orientation/consciousness Overall: oriented to person, place and time 09/26/2018 None Full Exam - General 1994 Psychiatric mood and affect Overall: normal mood and affect 09/26/2018 None Full Exam - General 1994 Lymphatic neck nodes Overall: anterior cervical chain benign 09/26/2018 None Full Exam - General 1994 Lymphatic neck nodes Overall: posterior cervical chain benign 09/26/2018 None Full Exam - General 1994 Ears/Nose/Throat lips/teeth/gingiva Lips: ulceration 09/26/2018 left lower lip Full Exam - General 1994 Constitutional general appearance Overall: well developed 08/10/2018 None Full Exam - General 1994 Constitutional general appearance Overall: in no acute distress 08/10/2018 None Full Exam - General 1994 Constitutional general appearance Overall: well nourished 08/10/2018 None Full Exam - General 1994 Eyes conjunctiva /eyelids Overall: conjunctiva clear 08/10/2018 None Full Exam - General 1994 Eyes conjunctiva /eyelids Overall: eyelids normal 08/10/2018 None Full Exam - General 1994 Ears/Nose/Throat lips/teeth/gingiva Overall: benign lips 08/10/2018 None Full Exam - General 1994 Respiratory respiratory effort/rhythm Overall: no retractions 08/10/2018 None Full Exam - General 1994 Respiratory respiratory effort/rhythm Overall: normal rate 08/10/2018 None Full Exam - General 1994 Musculoskeletal head and neck Overall: head atraumatic 08/10/2018 None Full Exam - General 1994 Neurologic cranial nerves Overall: crainial nerves 2 - 12 grossly intact 08/10/2018 None Full Exam - General 1994 Psychiatric orientation/consciousness Overall: oriented to person, place and time 08/10/2018 None Full Exam - General 1994 Psychiatric mood and affect Overall: normal mood and affect 08/10/2018 None Full Exam - General 1994 Psychiatric appearance Overall: well-groomed, good eye contact 08/10/2018 None Full Exam - General 1994 Eyes conjunctiva /eyelids Overall: cornea clear 08/10/2018 None Full Exam - General 1994 Constitutional general appearance Development: well developed 07/26/2018 None Full Exam - General 1994 Constitutional general appearance Development: appears stated age 1007/26/2018 None Full Exam - General 1994 Constitutional general appearance Hygiene/Attention to Grooming: good hygiene 07/26/2018 None Full Exam - General 1994 Eyes conjunctiva /eyelids Overall: conjunctiva clear 07/26/2018 None Full Exam - General 1994 Eyes conjunctiva /eyelids Overall: cornea clear 07/26/2018 None Full Exam - General 1994 Eyes conjunctiva /eyelids Overall: eyelids normal 07/26/2018 None Full Exam - General 1994 Eyes pupils and irises Overall: pupils equal, round, reactive to light and accomodation 07/26/2018 None Full Exam - General 1994 Ears/Nose/Throat external ear Overall: normal appearance 07/26/2018 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 Full Exam - General 1994 Ears/Nose/Throat lips/teeth/gingiva Overall: benign lips 07/26/2018 None Full Exam - General 1994 Ears/Nose/Throat lips/teeth/gingiva Overall: normal dentition 07/26/2018 None Full Exam - General 1994 Ears/Nose/Throat oral cavity/pharynx/larynx Overall: oral mucosa clear 07/26/2018 None Full Exam - General 1994 Ears/Nose/Throat oral cavity/pharynx/larynx Overall: oropharyngeal mucosa clear 07/26/2018 None Full Exam - General 1994 Ears/Nose/Throat oral cavity/pharynx/larynx Overall: hypopharynx benign 07/26/2018 None Full Exam - General 1994 Ears/Nose/Throat oral cavity/pharynx/larynx Overall: no masses 07/26/2018 None Full Exam - General 1994 Respiratory auscultation Overall: breath sounds clear bilaterally 07/26/2018 None Full Exam - General 1994 Respiratory respiratory effort/rhythm Overall: no retractions 07/26/2018 None Full Exam - General 1994 Respiratory respiratory effort/rhythm Overall: normal rate 07/26/2018 None Full Exam - General 1994 Cardiovascular extremities Overall: no clubbing 07/26/2018 None Full Exam - General 1994 Cardiovascular auscultation of heart Overall: regular rate 07/26/2018 None Full Exam - General 1994 Cardiovascular auscultation of heart Overall: normal heart sounds 07/26/2018 None Full Exam - General 1994 Cardiovascular auscultation of heart Systolic murmur: midsystolic 07/26/2018 None Full Exam - General 1994 Abdomen abdominal exam Overall: no tenderness 07/26/2018 None Full Exam - General 1994 Abdomen abdominal exam Overall: normal bowel sounds 07/26/2018 None Full Exam - General 1994 Abdomen rectal exam Prostate: enlarged 07/26/2018 None Full Exam - General 1994 Abdomen stool sample obtained Overall: normal appearance 07/26/2018 None Full Exam - General 1994 Abdomen stool sample obtained Overall: occult blood negative 07/26/2018 None Full Exam - General 1994 Neurologic cranial nerves Overall: crainial nerves 2 - 12 grossly intact 07/26/2018 None Full Exam - General 1994 Psychiatric orientation/consciousness Overall: oriented to person, place and time 07/26/2018 None Full Exam - General 1994 Psychiatric mood and affect Overall: normal mood and affect 07/26/2018 None Full Exam - General 1994 Constitutional general appearance Development: well developed 06/12/2018 None Full Exam - General 1994 Constitutional general appearance Development: appears stated age 0806/12/2018 None Full Exam - General 1994 Constitutional general appearance Hygiene/Attention to Grooming: good hygiene 06/12/2018 None Full Exam - General 1994 Eyes conjunctiva /eyelids Overall: conjunctiva clear 06/12/2018 None Full Exam - General 1994 Eyes conjunctiva /eyelids Overall: cornea clear 06/12/2018 None Full Exam - General 1994 Eyes conjunctiva /eyelids Overall: eyelids normal 06/12/2018 None Full Exam - General 1994 Eyes pupils and irises Overall: pupils equal, round, reactive to light and accomodation 06/12/2018 None Full Exam - General 1994 Ears/Nose/Throat external ear Overall: normal appearance 06/12/2018 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 Full Exam - General 1994 Ears/Nose/Throat lips/teeth/gingiva Overall: benign lips 06/12/2018 None Full Exam - General 1994 Ears/Nose/Throat lips/teeth/gingiva Overall: normal dentition 06/12/2018 None Full Exam - General 1994 Ears/Nose/Throat oral cavity/pharynx/larynx Overall: oral mucosa clear 06/12/2018 None Full Exam - General 1994 Ears/Nose/Throat oral cavity/pharynx/larynx Overall: oropharyngeal mucosa clear 06/12/2018 None Full Exam - General 1994 Ears/Nose/Throat oral cavity/pharynx/larynx Overall: hypopharynx benign 06/12/2018 None Full Exam - General 1994 Ears/Nose/Throat oral cavity/pharynx/larynx Overall: no masses 06/12/2018 None Full Exam - General 1994 Respiratory auscultation Overall: breath sounds clear bilaterally 06/12/2018 None Full Exam - General 1994 Respiratory respiratory effort/rhythm Overall: no retractions 06/12/2018 None Full Exam - General 1994 Respiratory respiratory effort/rhythm Overall: normal rate 06/12/2018 None Full Exam - General 1994 Cardiovascular extremities Overall: no clubbing 06/12/2018 None Full Exam - General 1994 Cardiovascular auscultation of heart Overall: regular rate 06/12/2018 None Full Exam - General 1994 Cardiovascular auscultation of heart Overall: normal heart sounds 06/12/2018 None Full Exam - General 1994 Cardiovascular auscultation of heart Systolic murmur: midsystolic 06/12/2018 None Full Exam - General 1994 Abdomen abdominal exam Overall: no tenderness 06/12/2018 None Full Exam - General 1994 Abdomen abdominal exam Overall: normal bowel sounds 06/12/2018 None Full Exam - General 1994 Abdomen rectal exam Prostate: enlarged 06/12/2018 None Full Exam - General 1994 Abdomen stool sample obtained Overall: normal appearance 06/12/2018 None Full Exam - General 1994 Abdomen stool sample obtained Overall: occult blood negative 06/12/2018 None Full Exam - General 1994 Neurologic cranial nerves Overall: crainial nerves 2 - 12 grossly intact 06/12/2018 None Full Exam - General 1994 Psychiatric orientation/consciousness Overall: oriented to person, place and time 06/12/2018 None Full Exam - General 1994 Psychiatric mood and affect Overall: normal mood and affect 06/12/2018 None Full Exam - General 1994 Constitutional general appearance Development: well developed 05/10/2018 None Full Exam - General 1994 Constitutional general appearance Development: appears stated age 0705/10/2018 None Full Exam - General 1994 Constitutional general appearance Hygiene/Attention to Grooming: good hygiene 05/10/2018 None Full Exam - General 1994 Eyes conjunctiva /eyelids Overall: conjunctiva clear 05/10/2018 None Full Exam - General 1994 Eyes conjunctiva /eyelids Overall: cornea clear 05/10/2018 None Full Exam - General 1994 Eyes conjunctiva /eyelids Overall: eyelids normal 05/10/2018 None Full Exam - General 1994 Eyes pupils and irises Overall: pupils equal, round, reactive to light and accomodation 05/10/2018 None Full Exam - General 1994 Ears/Nose/Throat lips/teeth/gingiva Overall: benign lips 05/10/2018 None Full Exam - General 1994 Ears/Nose/Throat lips/teeth/gingiva Overall: normal dentition 05/10/2018 None Full Exam - General 1994 Ears/Nose/Throat oral cavity/pharynx/larynx Overall: oral mucosa clear 05/10/2018 None Full Exam - General 1994 Ears/Nose/Throat oral cavity/pharynx/larynx Overall: oropharyngeal mucosa clear 05/10/2018 None Full Exam - General 1994 Ears/Nose/Throat oral cavity/pharynx/larynx Overall: hypopharynx benign 05/10/2018 None Full Exam - General 1994 Ears/Nose/Throat oral cavity/pharynx/larynx Overall: no masses 05/10/2018 None Full Exam - General 1994 Respiratory auscultation Overall: breath sounds clear bilaterally 05/10/2018 None Full Exam - General 1994 Respiratory respiratory effort/rhythm Overall: no retractions 05/10/2018 None Full Exam - General 1994 Respiratory respiratory effort/rhythm Overall: normal rate 05/10/2018 None Full Exam - General 1994 Cardiovascular extremities Overall: no clubbing 05/10/2018 None Full Exam - General 1994 Cardiovascular auscultation of heart Overall: regular rate 05/10/2018 None Full Exam - General 1994 Cardiovascular auscultation of heart Overall: normal heart sounds 05/10/2018 None Full Exam - General 1994 Cardiovascular auscultation of heart Systolic murmur: midsystolic 05/10/2018 None Full Exam - General 1994 Abdomen abdominal exam Overall: no tenderness 05/10/2018 None Full Exam - General 1994 Abdomen abdominal exam Overall: normal bowel sounds 05/10/2018 None Full Exam - General 1994 Abdomen rectal exam Prostate: enlarged 05/10/2018 None Full Exam - General 1994 Abdomen stool sample obtained Overall: normal appearance 05/10/2018 None Full Exam - General 1994 Abdomen stool sample obtained Overall: occult blood negative 05/10/2018 None Full Exam - General 1994 Neurologic deep tendon reflexes Overall: deep tendon reflexes intact 05/10/2018 None Full Exam - General 1994 Neurologic cranial nerves Overall: crainial nerves 2 - 12 grossly intact 05/10/2018 None Full Exam - General 1994 Psychiatric orientation/consciousness Overall: oriented to person, place and time 05/10/2018 None Full Exam - General 1994 Psychiatric mood and affect Overall: normal mood and affect 05/10/2018 None Full Exam - General 1994 Lymphatic neck nodes Overall: anterior cervical chain benign 05/10/2018 None Full Exam - General 1994 Lymphatic neck nodes Overall: posterior cervical chain benign 05/10/2018 None Full Exam - General 1994 Constitutional general appearance Development: well developed 03/27/2018 None Full Exam - General 1994 Constitutional general appearance Development: appears stated age 0603/27/2018 None Full Exam - General 1994 Constitutional general appearance Hygiene/Attention to Grooming: good hygiene 03/27/2018 None Full Exam - General 1994 Eyes conjunctiva /eyelids Overall: conjunctiva clear 03/27/2018 None Full Exam - General 1994 Eyes conjunctiva /eyelids Overall: cornea clear 03/27/2018 None Full Exam - General 1994 Eyes conjunctiva /eyelids Overall: eyelids normal 03/27/2018 None Full Exam - General 1994 Eyes pupils and irises Overall: pupils equal, round, reactive to light and accomodation 03/27/2018 None Full Exam - General 1994 Ears/Nose/Throat lips/teeth/gingiva Overall: benign lips 03/27/2018 None Full Exam - General 1994 Ears/Nose/Throat lips/teeth/gingiva Overall: normal dentition 03/27/2018 None Full Exam - General 1994 Ears/Nose/Throat oral cavity/pharynx/larynx Overall: oral mucosa clear 03/27/2018 None Full Exam - General 1994 Ears/Nose/Throat oral cavity/pharynx/larynx Overall: oropharyngeal mucosa clear 03/27/2018 None Full Exam - General 1994 Ears/Nose/Throat oral cavity/pharynx/larynx Overall: hypopharynx benign 03/27/2018 None Full Exam - General 1994 Ears/Nose/Throat oral cavity/pharynx/larynx Overall: no masses 03/27/2018 None Full Exam - General 1994 Respiratory auscultation Overall: breath sounds clear bilaterally 03/27/2018 None Full Exam - General 1994 Respiratory respiratory effort/rhythm Overall: no retractions 03/27/2018 None Full Exam - General 1994 Respiratory respiratory effort/rhythm Overall: normal rate 03/27/2018 None Full Exam - General 1994 Cardiovascular extremities Overall: no clubbing 03/27/2018 None Full Exam - General 1994 Cardiovascular auscultation of heart Overall: regular rate 03/27/2018 None Full Exam - General 1994 Cardiovascular auscultation of heart Overall: normal heart sounds 03/27/2018 None Full Exam - General 1994 Cardiovascular auscultation of heart Systolic murmur: midsystolic 03/27/2018 None Full Exam - General 1994 Abdomen abdominal exam Overall: no tenderness 03/27/2018 None Full Exam - General 1994 Abdomen abdominal exam Overall: normal bowel sounds 03/27/2018 None Full Exam - General 1994 Abdomen rectal exam Prostate: enlarged 03/27/2018 None Full Exam - General 1994 Abdomen stool sample obtained Overall: normal appearance 03/27/2018 None Full Exam - General 1994 Abdomen stool sample obtained Overall: occult blood negative 03/27/2018 None Full Exam - General 1994 Neurologic cranial nerves Overall: crainial nerves 2 - 12 grossly intact 03/27/2018 None Full Exam - General 1994 Psychiatric orientation/consciousness Overall: oriented to person, place and time 03/27/2018 None Full Exam - General 1994 Psychiatric mood and affect Overall: normal mood and affect 03/27/2018 None Full Exam - General 1994 Ears/Nose/Throat external ear Overall: normal appearance 03/27/2018 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 Full Exam - General 1994 Constitutional general appearance Development: well developed 01/24/2018 None Full Exam - General 1994 Constitutional general appearance Development: appears stated age 0401/24/2018 None Full Exam - General 1994 Constitutional general appearance Hygiene/Attention to Grooming: good hygiene 01/24/2018 None Full Exam - General 1994 Eyes conjunctiva /eyelids Overall: conjunctiva clear 01/24/2018 None Full Exam - General 1994 Eyes conjunctiva /eyelids Overall: cornea clear 01/24/2018 None Full Exam - General 1994 Eyes conjunctiva /eyelids Overall: eyelids normal 01/24/2018 None Full Exam - General 1994 Eyes pupils and irises Overall: pupils equal, round, reactive to light and accomodation 01/24/2018 None Full Exam - General 1994 Ears/Nose/Throat otoscopic exam Overall: external auditory canals clear 01/24/2018 None Full Exam - General 1994 Ears/Nose/Throat otoscopic exam Tympanic membrane: air- fluid level 01/24/2018 None Full Exam - General 1994 Ears/Nose/Throat otoscopic exam Tympanic membrane: tympanosclerosis 01/24/2018 None Full Exam - General 1994 Ears/Nose/Throat lips/teeth/gingiva Overall: benign lips 01/24/2018 None Full Exam - General 1994 Ears/Nose/Throat lips/teeth/gingiva Overall: normal dentition 01/24/2018 None Full Exam - General 1994 Ears/Nose/Throat oral cavity/pharynx/larynx Overall: oral mucosa clear 01/24/2018 None Full Exam - General 1994 Ears/Nose/Throat oral cavity/pharynx/larynx Overall: oropharyngeal mucosa clear 01/24/2018 None Full Exam - General 1994 Ears/Nose/Throat oral cavity/pharynx/larynx Overall: hypopharynx benign 01/24/2018 None Full Exam - General 1994 Ears/Nose/Throat oral cavity/pharynx/larynx Overall: no masses 01/24/2018 None Full Exam - General 1994 Respiratory auscultation Overall: breath sounds clear bilaterally 01/24/2018 None Full Exam - General 1994 Respiratory respiratory effort/rhythm Overall: no retractions 01/24/2018 None Full Exam - General 1994 Respiratory respiratory effort/rhythm Overall: normal rate 01/24/2018 None Full Exam - General 1994 Cardiovascular extremities Overall: no clubbing 01/24/2018 None Full Exam - General 1994 Cardiovascular auscultation of heart Overall: regular rate 01/24/2018 None Full Exam - General 1994 Cardiovascular auscultation of heart Overall: normal heart sounds 01/24/2018 None Full Exam - General 1994 Cardiovascular auscultation of heart Systolic murmur: midsystolic 01/24/2018 None Full Exam - General 1994 Abdomen abdominal exam Overall: no tenderness 01/24/2018 None Full Exam - General 1994 Abdomen abdominal exam Overall: normal bowel sounds 01/24/2018 None Full Exam - General 1994 Abdomen rectal exam Prostate: enlarged 01/24/2018 None Full Exam - General 1994 Abdomen stool sample obtained Overall: normal appearance 01/24/2018 None Full Exam - General 1994 Abdomen stool sample obtained Overall: occult blood negative 01/24/2018 None Full Exam - General 1994 Integument inspection of skin Location: left arm 01/24/2018 healing lacerations on arms Full Exam - General 1994 Integument inspection of skin Location: right arm 01/24/2018 healing lacerations on arms Full Exam - General 1994 Neurologic deep tendon reflexes Overall: deep tendon reflexes intact 01/24/2018 None Full Exam - General 1994 Neurologic cranial nerves Overall: crainial nerves 2 - 12 grossly intact 01/24/2018 None Full Exam - General 1994 Psychiatric orientation/consciousness Overall: oriented to person, place and time 01/24/2018 None Full Exam - General 1994 Psychiatric mood and affect Overall: normal mood and affect 01/24/2018 None Full Exam - General 1994 Lymphatic neck nodes Overall: anterior cervical chain benign 01/24/2018 None Full Exam - General 1994 Lymphatic neck nodes Overall: posterior cervical chain benign 01/24/2018 None Full Exam - General 1994 Constitutional general appearance Overall: well developed 12/08/2017 None Full Exam - General 1994 Constitutional general appearance Overall: in no acute distress 12/08/2017 None Full Exam - General 1994 Constitutional general appearance Overall: well nourished 12/08/2017 None Full Exam - General 1994 Eyes conjunctiva /eyelids Overall: conjunctiva clear 12/08/2017 None Full Exam - General 1994 Eyes conjunctiva /eyelids Overall: cornea clear 12/08/2017 None Full Exam - General 1994 Eyes conjunctiva /eyelids Overall: eyelids normal 12/08/2017 None Full Exam - General 1995 Ears/Nose/Throat lips/teeth/gingiva Overall: benign lips 12/08/2017 None Full Exam - General 1995 Ears/Nose/Throat oral cavity/pharynx/larynx Overall: oral mucosa clear 12/08/2017 None Full Exam - General 1995 Ears/Nose/Throat oral cavity/pharynx/larynx Posterior Pharynx: clear post nasal drainage 12/08/2017 None Full Exam - General 1994 Ears/Nose/Throat internal nose Sinus tenderness: left maxillary 12/08/2017 None Full Exam - General 1994 Ears/Nose/Throat internal nose Sinus tenderness: right maxillary 12/08/2017 None Full Exam - General 1994 Respiratory auscultation Overall: breath sounds clear bilaterally 12/08/2017 None Full Exam - General 1994 Respiratory auscultation Diffuse: diminished 12/08/2017 None Full Exam - General 1994 Respiratory respiratory effort/rhythm Overall: no retractions 12/08/2017 None Full Exam - General 1994 Respiratory respiratory effort/rhythm Overall: normal rate 12/08/2017 None Full Exam - General 1994 Cardiovascular auscultation of heart Rate: regular rate 12/08/2017 None Full Exam - General 1994 Cardiovascular auscultation of heart Rhythm: regular rhythm 12/08/2017 None Full Exam - General 1994 Cardiovascular auscultation of heart Systolic murmur: midsystolic 12/08/2017 None Full Exam - General 1994 Musculoskeletal head and neck Overall: head atraumatic 12/08/2017 None Full Exam - General 1994 Psychiatric orientation/consciousness Overall: oriented to person, place and time 12/08/2017 None Full Exam - General 1994 Psychiatric mood and affect Overall: normal mood and affect 12/08/2017 None Full Exam - General 1994 Psychiatric appearance Overall: well-groomed, good eye contact 12/08/2017 None Full Exam - General 1994 Constitutional general appearance Development: well developed 10/27/2017 None Full Exam - General 1994 Constitutional general appearance Development: appears stated age 0110/27/2017 None Full Exam - General 1994 Constitutional general appearance Hygiene/Attention to Grooming: good hygiene 10/27/2017 None Full Exam - General 1994 Eyes conjunctiva /eyelids Overall: conjunctiva clear 10/27/2017 None Full Exam - General 1994 Eyes conjunctiva /eyelids Overall: cornea clear 10/27/2017 None Full Exam - General 1994 Eyes conjunctiva /eyelids Overall: eyelids normal 10/27/2017 None Full Exam - General 1994 Eyes pupils and irises Overall: pupils equal, round, reactive to light and accomodation 10/27/2017 None Full Exam - General 1994 Ears/Nose/Throat otoscopic exam Overall: external auditory canals clear 10/27/2017 None Full Exam - General 1994 Ears/Nose/Throat otoscopic exam Tympanic membrane: air- fluid level 10/27/2017 None Full Exam - General 1994 Ears/Nose/Throat otoscopic exam Tympanic membrane: tympanosclerosis 10/27/2017 None Full Exam - General 1994 Ears/Nose/Throat lips/teeth/gingiva Overall: benign lips 10/27/2017 None Full Exam - General 1994 Ears/Nose/Throat lips/teeth/gingiva Overall: normal dentition 10/27/2017 None Full Exam - General 1994 Ears/Nose/Throat oral cavity/pharynx/larynx Overall: oral mucosa clear 10/27/2017 None Full Exam - General 1994 Ears/Nose/Throat oral cavity/pharynx/larynx Overall: oropharyngeal mucosa clear 10/27/2017 None Full Exam - General 1994 Ears/Nose/Throat oral cavity/pharynx/larynx Overall: hypopharynx benign 10/27/2017 None Full Exam - General 1994 Ears/Nose/Throat oral cavity/pharynx/larynx Overall: no masses 10/27/2017 None Full Exam - General 1994 Respiratory auscultation Overall: breath sounds clear bilaterally 10/27/2017 None Full Exam - General 1994 Respiratory respiratory effort/rhythm Overall: no retractions 10/27/2017 None Full Exam - General 1994 Respiratory respiratory effort/rhythm Overall: normal rate 10/27/2017 None Full Exam - General 1994 Cardiovascular extremities Overall: no clubbing 10/27/2017 None Full Exam - General 1994 Cardiovascular auscultation of heart Overall: regular rate 10/27/2017 None Full Exam - General 1994 Cardiovascular auscultation of heart Overall: normal heart sounds 10/27/2017 None Full Exam - General 1994 Cardiovascular auscultation of heart Systolic murmur: midsystolic 10/27/2017 None Full Exam - General 1994 Abdomen abdominal exam Overall: no tenderness 10/27/2017 None Full Exam - General 1994 Abdomen abdominal exam Overall: normal bowel sounds 10/27/2017 None Full Exam - General 1994 Abdomen rectal exam Prostate: enlarged 10/27/2017 None Full Exam - General 1994 Abdomen stool sample obtained Overall: normal appearance 10/27/2017 None Full Exam - General 1994 Abdomen stool sample obtained Overall: occult blood negative 10/27/2017 None Full Exam - General 1994 Integument inspection of skin Location: left arm 10/27/2017 healing lacerations on arms Full Exam - General 1994 Integument inspection of skin Location: right arm 10/27/2017 healing lacerations on arms Full Exam - General 1994 Neurologic deep tendon reflexes Overall: deep tendon reflexes intact 10/27/2017 None Full Exam - General 1994 Neurologic cranial nerves Overall: crainial nerves 2 - 12 grossly intact 10/27/2017 None Full Exam - General 1994 Psychiatric orientation/consciousness Overall: oriented to person, place and time 10/27/2017 None Full Exam - General 1994 Psychiatric mood and affect Overall: normal mood and affect 10/27/2017 None Full Exam - General 1994 Constitutional general appearance Development: well developed 09/29/2017 None Full Exam - General 1994 Constitutional general appearance Development: appears stated age 1209/29/2017 None Full Exam - General 1994 Constitutional general appearance Hygiene/Attention to Grooming: good hygiene 09/29/2017 None Full Exam - General 1994 Eyes pupils and irises Overall: pupils equal, round, reactive to light and accomodation 09/29/2017 None Full Exam - General 1994 Ears/Nose/Throat otoscopic exam Overall: external auditory canals clear 09/29/2017 None Full Exam - General 1994 Ears/Nose/Throat otoscopic exam Tympanic membrane: air- fluid level 09/29/2017 None Full Exam - General 1994 Ears/Nose/Throat otoscopic exam Tympanic membrane: tympanosclerosis 09/29/2017 None Full Exam - General 1994 Ears/Nose/Throat lips/teeth/gingiva Overall: benign lips 09/29/2017 None Full Exam - General 1994 Ears/Nose/Throat lips/teeth/gingiva Overall: normal dentition 09/29/2017 None Full Exam - General 1994 Ears/Nose/Throat oral cavity/pharynx/larynx Overall: oral mucosa clear 09/29/2017 None Full Exam - General 1994 Ears/Nose/Throat oral cavity/pharynx/larynx Overall: oropharyngeal mucosa clear 09/29/2017 None Full Exam - General 1994 Ears/Nose/Throat oral cavity/pharynx/larynx Overall: hypopharynx benign 09/29/2017 None Full Exam - General 1994 Ears/Nose/Throat oral cavity/pharynx/larynx Overall: no masses 09/29/2017 None Full Exam - General 1994 Respiratory auscultation Overall: breath sounds clear bilaterally 09/29/2017 None Full Exam - General 1994 Respiratory respiratory effort/rhythm Overall: no retractions 09/29/2017 None Full Exam - General 1994 Respiratory respiratory effort/rhythm Overall: normal rate 09/29/2017 None Full Exam - General 1994 Cardiovascular extremities Overall: no clubbing 09/29/2017 None Full Exam - General 1994 Cardiovascular auscultation of heart Overall: regular rate 09/29/2017 None Full Exam - General 1994 Cardiovascular auscultation of heart Overall: normal heart sounds 09/29/2017 None Full Exam - General 1994 Cardiovascular auscultation of heart Systolic murmur: midsystolic 09/29/2017 None Full Exam - General 1994 Psychiatric orientation/consciousness Overall: oriented to person, place and time 09/29/2017 None Full Exam - General 1994 Psychiatric mood and affect Overall: normal mood and affect 09/29/2017 None Full Exam - General 1994 Constitutional general appearance Development: well developed 09/01/2017 None Full Exam - General 1994 Constitutional general appearance Development: appears stated age 1109/01/2017 None Full Exam - General 1994 Constitutional general appearance Hygiene/Attention to Grooming: good hygiene 09/01/2017 None Full Exam - General 1994 Eyes conjunctiva /eyelids Overall: conjunctiva clear 09/01/2017 None Full Exam - General 1994 Eyes conjunctiva /eyelids Overall: cornea clear 09/01/2017 None Full Exam - General 1994 Eyes conjunctiva /eyelids Overall: eyelids normal 09/01/2017 None Full Exam - General 1994 Eyes pupils and irises Overall: pupils equal, round, reactive to light and accomodation 09/01/2017 None Full Exam - General 1994 Ears/Nose/Throat otoscopic exam Overall: external auditory canals clear 09/01/2017 None Full Exam - General 1994 Ears/Nose/Throat otoscopic exam Tympanic membrane: air- fluid level 09/01/2017 None Full Exam - General 1994 Ears/Nose/Throat otoscopic exam Tympanic membrane: tympanosclerosis 09/01/2017 None Full Exam - General 1994 Ears/Nose/Throat lips/teeth/gingiva Overall: benign lips 09/01/2017 None Full Exam - General 1994 Ears/Nose/Throat lips/teeth/gingiva Overall: normal dentition 09/01/2017 None Full Exam - General 1994 Ears/Nose/Throat oral cavity/pharynx/larynx Overall: oral mucosa clear 09/01/2017 None Full Exam - General 1994 Ears/Nose/Throat oral cavity/pharynx/larynx Overall: oropharyngeal mucosa clear 09/01/2017 None Full Exam - General 1994 Ears/Nose/Throat oral cavity/pharynx/larynx Overall: hypopharynx benign 09/01/2017 None Full Exam - General 1994 Ears/Nose/Throat oral cavity/pharynx/larynx Overall: no masses 09/01/2017 None Full Exam - General 1994 Respiratory auscultation Overall: breath sounds clear bilaterally 09/01/2017 None Full Exam - General 1994 Respiratory respiratory effort/rhythm Overall: no retractions 09/01/2017 None Full Exam - General 1994 Respiratory respiratory effort/rhythm Overall: normal rate 09/01/2017 None Full Exam - General 1994 Cardiovascular extremities Overall: no clubbing 09/01/2017 None Full Exam - General 1994 Cardiovascular auscultation of heart Overall: regular rate 09/01/2017 None Full Exam - General 1994 Cardiovascular auscultation of heart Overall: normal heart sounds 09/01/2017 None Full Exam - General 1994 Cardiovascular auscultation of heart Systolic murmur: midsystolic 09/01/2017 None Full Exam - General 1994 Abdomen abdominal exam Overall: no tenderness 09/01/2017 None Full Exam - General 1994 Abdomen abdominal exam Overall: normal bowel sounds 09/01/2017 None Full Exam - General 1994 Abdomen rectal exam Prostate: enlarged 09/01/2017 None Full Exam - General 1994 Abdomen stool sample obtained Overall: normal appearance 09/01/2017 None Full Exam - General 1994 Abdomen stool sample obtained Overall: occult blood negative 09/01/2017 None Full Exam - General 1994 Integument inspection of skin Location: left arm 09/01/2017 healing lacerations on arms Full Exam - General 1994 Integument inspection of skin Location: right arm 09/01/2017 healing lacerations on arms Full Exam - General 1994 Neurologic deep tendon reflexes Overall: deep tendon reflexes intact 09/01/2017 None Full Exam - General 1994 Neurologic cranial nerves Overall: crainial nerves 2 - 12 grossly intact 09/01/2017 None Full Exam - General 1994 Psychiatric orientation/consciousness Overall: oriented to person, place and time 09/01/2017 None Full Exam - General 1994 Psychiatric mood and affect Overall: normal mood and affect 09/01/2017 None Full Exam - General 1994 Constitutional general appearance Overall: well developed 08/03/2017 None Full Exam - General 1994 Constitutional general appearance Overall: in no acute distress 08/03/2017 None Full Exam - General 1994 Constitutional general appearance Overall: well nourished 08/03/2017 None Full Exam - General 1994 Eyes conjunctiva /eyelids Overall: conjunctiva clear 08/03/2017 None Full Exam - General 1994 Eyes conjunctiva /eyelids Overall: eyelids normal 08/03/2017 None Full Exam - General 1994 Ears/Nose/Throat lips/teeth/gingiva Overall: benign lips 08/03/2017 None Full Exam - General 1994 Respiratory respiratory effort/rhythm Overall: no retractions 08/03/2017 None Full Exam - General 1994 Respiratory respiratory effort/rhythm Overall: normal rate 08/03/2017 None Full Exam - General 1994 Musculoskeletal head and neck Overall: head atraumatic 08/03/2017 None Full Exam - General 1994 Neurologic cranial nerves Overall: crainial nerves 2 - 12 grossly intact 08/03/2017 None Full Exam - General 1994 Psychiatric orientation/consciousness Overall: oriented to person, place and time 08/03/2017 None Full Exam - General 1994 Psychiatric mood and affect Overall: normal mood and affect 08/03/2017 None Full Exam - General 1994 Psychiatric appearance Overall: well-groomed, good eye contact 08/03/2017 None Full Exam - General 1994 Constitutional general appearance Development: well developed 04/26/2017 None Full Exam - General 1994 Constitutional general appearance Development: appears stated age 0704/26/2017 None Full Exam - General 1994 Constitutional general appearance Hygiene/Attention to Grooming: good hygiene 04/26/2017 None Full Exam - General 1994 Eyes conjunctiva /eyelids Overall: conjunctiva clear 04/26/2017 None Full Exam - General 1994 Eyes conjunctiva /eyelids Overall: cornea clear 04/26/2017 None Full Exam - General 1994 Eyes conjunctiva /eyelids Overall: eyelids normal 04/26/2017 None Full Exam - General 1994 Eyes pupils and irises Overall: pupils equal, round, reactive to light and accomodation 04/26/2017 None Full Exam - General 1994 Ears/Nose/Throat otoscopic exam Overall: external auditory canals clear 04/26/2017 None Full Exam - General 1994 Ears/Nose/Throat otoscopic exam Tympanic membrane: air- fluid level 04/26/2017 None Full Exam - General 1994 Ears/Nose/Throat otoscopic exam Tympanic membrane: tympanosclerosis 04/26/2017 None Full Exam - General 1994 Ears/Nose/Throat lips/teeth/gingiva Overall: benign lips 04/26/2017 None Full Exam - General 1995 Ears/Nose/Throat lips/teeth/gingiva Overall: normal dentition 04/26/2017 None Full Exam - General 1994 Ears/Nose/Throat oral cavity/pharynx/larynx Overall: oral mucosa clear 04/26/2017 None Full Exam - General 1994 Ears/Nose/Throat oral cavity/pharynx/larynx Overall: oropharyngeal mucosa clear 04/26/2017 None Full Exam - General 1994 Ears/Nose/Throat oral cavity/pharynx/larynx Overall: hypopharynx benign 04/26/2017 None Full Exam - General 1994 Ears/Nose/Throat oral cavity/pharynx/larynx Overall: no masses 04/26/2017 None Full Exam - General 1994 Respiratory auscultation Overall: breath sounds clear bilaterally 04/26/2017 None Full Exam - General 1994 Respiratory respiratory effort/rhythm Overall: no retractions 04/26/2017 None Full Exam - General 1994 Respiratory respiratory effort/rhythm Overall: normal rate 04/26/2017 None Full Exam - General 1994 Cardiovascular extremities Overall: no clubbing 04/26/2017 None Full Exam - General 1994 Cardiovascular auscultation of heart Overall: regular rate 04/26/2017 None Full Exam - General 1994 Cardiovascular auscultation of heart Overall: normal heart sounds 04/26/2017 None Full Exam - General 1994 Cardiovascular auscultation of heart Systolic murmur: midsystolic 04/26/2017 None Full Exam - General 1994 Abdomen abdominal exam Overall: no tenderness 04/26/2017 None Full Exam - General 1994 Abdomen abdominal exam Overall: normal bowel sounds 04/26/2017 None Full Exam - General 1994 Abdomen rectal exam Prostate: enlarged 04/26/2017 None Full Exam - General 1994 Abdomen stool sample obtained Overall: normal appearance 04/26/2017 None Full Exam - General 1994 Abdomen stool sample obtained Overall: occult blood negative 04/26/2017 None Full Exam - General 1994 Integument inspection of skin Location: left arm 04/26/2017 healing lacerations on arms Full Exam - General 1994 Integument inspection of skin Location: right arm 04/26/2017 healing lacerations on arms Full Exam - General 1994 Neurologic deep tendon reflexes Overall: deep tendon reflexes intact 04/26/2017 None Full Exam - General 1994 Neurologic cranial nerves Overall: crainial nerves 2 - 12 grossly intact 04/26/2017 None Full Exam - General 1994 Psychiatric orientation/consciousness Overall: oriented to person, place and time 04/26/2017 None Full Exam - General 1994 Psychiatric mood and affect Overall: normal mood and affect 04/26/2017 None Full Exam - General 1994 Constitutional general appearance Development: well developed 01/25/2017 None Full Exam - General 1994 Constitutional general appearance Development: appears stated age 0401/25/2017 None Full Exam - General 1994 Constitutional general appearance Hygiene/Attention to Grooming: good hygiene 01/25/2017 None Full Exam - General 1994 Eyes conjunctiva /eyelids Overall: conjunctiva clear 01/25/2017 None Full Exam - General 1994 Eyes conjunctiva /eyelids Overall: cornea clear 01/25/2017 None Full Exam - General 1994 Eyes conjunctiva /eyelids Overall: eyelids normal 01/25/2017 None Full Exam - General 1994 Eyes pupils and irises Overall: pupils equal, round, reactive to light and accomodation 01/25/2017 None Full Exam - General 1994 Ears/Nose/Throat otoscopic exam Overall: external auditory canals clear 01/25/2017 None Full Exam - General 1994 Ears/Nose/Throat otoscopic exam Tympanic membrane: air- fluid level 01/25/2017 None Full Exam - General 1994 Ears/Nose/Throat otoscopic exam Tympanic membrane: tympanosclerosis 01/25/2017 None Full Exam - General 1994 Ears/Nose/Throat lips/teeth/gingiva Overall: benign lips 01/25/2017 None Full Exam - General 1994 Ears/Nose/Throat lips/teeth/gingiva Overall: normal dentition 01/25/2017 None Full Exam - General 1994 Ears/Nose/Throat oral cavity/pharynx/larynx Overall: oral mucosa clear 01/25/2017 None Full Exam - General 1994 Ears/Nose/Throat oral cavity/pharynx/larynx Overall: oropharyngeal mucosa clear 01/25/2017 None Full Exam - General 1994 Ears/Nose/Throat oral cavity/pharynx/larynx Overall: hypopharynx benign 01/25/2017 None Full Exam - General 1994 Ears/Nose/Throat oral cavity/pharynx/larynx Overall: no masses 01/25/2017 None Full Exam - General 1994 Respiratory auscultation Overall: breath sounds clear bilaterally 01/25/2017 None Full Exam - General 1994 Respiratory respiratory effort/rhythm Overall: no retractions 01/25/2017 None Full Exam - General 1994 Respiratory respiratory effort/rhythm Overall: normal rate 01/25/2017 None Full Exam - General 1994 Cardiovascular extremities Overall: no clubbing 01/25/2017 None Full Exam - General 1994 Cardiovascular auscultation of heart Overall: regular rate 01/25/2017 None Full Exam - General 1994 Cardiovascular auscultation of heart Overall: normal heart sounds 01/25/2017 None Full Exam - General 1994 Cardiovascular auscultation of heart Systolic murmur: midsystolic 01/25/2017 None Full Exam - General 1994 Abdomen abdominal exam Overall: no tenderness 01/25/2017 None Full Exam - General 1994 Abdomen abdominal exam Overall: normal bowel sounds 01/25/2017 None Full Exam - General 1994 Abdomen rectal exam Prostate: enlarged 01/25/2017 None Full Exam - General 1994 Abdomen stool sample obtained Overall: normal appearance 01/25/2017 None Full Exam - General 1994 Abdomen stool sample obtained Overall: occult blood negative 01/25/2017 None Full Exam - General 1994 Integument inspection of skin Location: left arm 01/25/2017 healing lacerations on arms Full Exam - General 1994 Integument inspection of skin Location: right arm 01/25/2017 healing lacerations on arms Full Exam - General 1994 Neurologic deep tendon reflexes Overall: deep tendon reflexes intact 01/25/2017 None Full Exam - General 1994 Neurologic cranial nerves Overall: crainial nerves 2 - 12 grossly intact 01/25/2017 None Full Exam - General 1994 Psychiatric orientation/consciousness Overall: oriented to person, place and time 01/25/2017 None Full Exam - General 1994 Psychiatric mood and affect Overall: normal mood and affect 01/25/2017 None Full Exam - General 1994 Constitutional general appearance Development: well developed 10/26/2016 None Full Exam - General 1994 Constitutional general appearance Development: appears stated age 0110/26/2016 None Full Exam - General 1994 Constitutional general appearance Hygiene/Attention to Grooming: good hygiene 10/26/2016 None Full Exam - General 1994 Eyes conjunctiva /eyelids Overall: conjunctiva clear 10/26/2016 None Full Exam - General 1994 Eyes conjunctiva /eyelids Overall: cornea clear 10/26/2016 None Full Exam - General 1994 Eyes conjunctiva /eyelids Overall: eyelids normal 10/26/2016 None Full Exam - General 1994 Eyes pupils and irises Overall: pupils equal, round, reactive to light and accomodation 10/26/2016 None Full Exam - General 1994 Ears/Nose/Throat otoscopic exam Overall: external auditory canals clear 10/26/2016 None Full Exam - General 1994 Ears/Nose/Throat otoscopic exam Tympanic membrane: air- fluid level 10/26/2016 None Full Exam - General 1994 Ears/Nose/Throat otoscopic exam Tympanic membrane: tympanosclerosis 10/26/2016 None Full Exam - General 1994 Ears/Nose/Throat lips/teeth/gingiva Overall: benign lips 10/26/2016 None Full Exam - General 1994 Ears/Nose/Throat lips/teeth/gingiva Overall: normal dentition 10/26/2016 None Full Exam - General 1994 Ears/Nose/Throat oral cavity/pharynx/larynx Overall: oral mucosa clear 10/26/2016 None Full Exam - General 1994 Ears/Nose/Throat oral cavity/pharynx/larynx Overall: oropharyngeal mucosa clear 10/26/2016 None Full Exam - General 1994 Ears/Nose/Throat oral cavity/pharynx/larynx Overall: hypopharynx benign 10/26/2016 None Full Exam - General 1994 Ears/Nose/Throat oral cavity/pharynx/larynx Overall: no masses 10/26/2016 None Full Exam - General 1994 Respiratory auscultation Overall: breath sounds clear bilaterally 10/26/2016 None Full Exam - General 1994 Respiratory respiratory effort/rhythm Overall: no retractions 10/26/2016 None Full Exam - General 1994 Respiratory respiratory effort/rhythm Overall: normal rate 10/26/2016 None Full Exam - General 1994 Cardiovascular extremities Overall: no clubbing 10/26/2016 None Full Exam - General 1994 Cardiovascular auscultation of heart Overall: regular rate 10/26/2016 None Full Exam - General 1994 Cardiovascular auscultation of heart Overall: normal heart sounds 10/26/2016 None Full Exam - General 1994 Cardiovascular auscultation of heart Systolic murmur: midsystolic 10/26/2016 None Full Exam - General 1994 Abdomen abdominal exam Overall: no tenderness 10/26/2016 None Full Exam - General 1994 Abdomen abdominal exam Overall: normal bowel sounds 10/26/2016 None Full Exam - General 1994 Abdomen rectal exam Prostate: enlarged 10/26/2016 None Full Exam - General 1994 Abdomen stool sample obtained Overall: normal appearance 10/26/2016 None Full Exam - General 1994 Abdomen stool sample obtained Overall: occult blood negative 10/26/2016 None Full Exam - General 1994 Integument inspection of skin Location: left arm 10/26/2016 healing lacerations on arms Full Exam - General 1994 Integument inspection of skin Location: right arm 10/26/2016 healing lacerations on arms Full Exam - General 1994 Neurologic deep tendon reflexes Overall: deep tendon reflexes intact 10/26/2016 None Full Exam - General 1994 Neurologic cranial nerves Overall: crainial nerves 2 - 12 grossly intact 10/26/2016 None Full Exam - General 1994 Psychiatric orientation/consciousness Overall: oriented to person, place and time 10/26/2016 None Full Exam - General 1994 Psychiatric mood and affect Overall: normal mood and affect 10/26/2016 None Full Exam - General 1994 Constitutional general appearance Development: well developed 09/27/2016 None Full Exam - General 1994 Constitutional general appearance Development: appears stated age 1209/27/2016 None Full Exam - General 1994 Constitutional general appearance Hygiene/Attention to Grooming: good hygiene 09/27/2016 None Full Exam - General 1994 Eyes conjunctiva /eyelids Overall: conjunctiva clear 09/27/2016 None Full Exam - General 1994 Eyes conjunctiva /eyelids Overall: cornea clear 09/27/2016 None Full Exam - General 1994 Eyes conjunctiva /eyelids Overall: eyelids normal 09/27/2016 None Full Exam - General 1994 Eyes pupils and irises Overall: pupils equal, round, reactive to light and accomodation 09/27/2016 None Full Exam - General 1994 Ears/Nose/Throat otoscopic exam Overall: external auditory canals clear 09/27/2016 None Full Exam - General 1994 Ears/Nose/Throat otoscopic exam Tympanic membrane: air- fluid level 09/27/2016 None Full Exam - General 1994 Ears/Nose/Throat otoscopic exam Tympanic membrane: tympanosclerosis 09/27/2016 None Full Exam - General 1994 Ears/Nose/Throat lips/teeth/gingiva Overall: benign lips 09/27/2016 None Full Exam - General 1994 Ears/Nose/Throat lips/teeth/gingiva Overall: normal dentition 09/27/2016 None Full Exam - General 1994 Ears/Nose/Throat oral cavity/pharynx/larynx Overall: oral mucosa clear 09/27/2016 None Full Exam - General 1994 Ears/Nose/Throat oral cavity/pharynx/larynx Overall: oropharyngeal mucosa clear 09/27/2016 None Full Exam - General 1994 Ears/Nose/Throat oral cavity/pharynx/larynx Overall: hypopharynx benign 09/27/2016 None Full Exam - General 1994 Ears/Nose/Throat oral cavity/pharynx/larynx Overall: no masses 09/27/2016 None Full Exam - General 1994 Respiratory auscultation Overall: breath sounds clear bilaterally 09/27/2016 None Full Exam - General 1994 Respiratory respiratory effort/rhythm Overall: no retractions 09/27/2016 None Full Exam - General 1994 Respiratory respiratory effort/rhythm Overall: normal rate 09/27/2016 None Full Exam - General 1994 Cardiovascular extremities Overall: no clubbing 09/27/2016 None Full Exam - General 1994 Cardiovascular auscultation of heart Overall: regular rate 09/27/2016 None Full Exam - General 1994 Cardiovascular auscultation of heart Overall: normal heart sounds 09/27/2016 None Full Exam - General 1994 Cardiovascular auscultation of heart Systolic murmur: midsystolic 09/27/2016 None Full Exam - General 1994 Abdomen abdominal exam Overall: no tenderness 09/27/2016 None Full Exam - General 1994 Abdomen abdominal exam Overall: normal bowel sounds 09/27/2016 None Full Exam - General 1994 Abdomen rectal exam Prostate: enlarged 09/27/2016 None Full Exam - General 1994 Abdomen stool sample obtained Overall: normal appearance 09/27/2016 None Full Exam - General 1994 Abdomen stool sample obtained Overall: occult blood negative 09/27/2016 None Full Exam - General 1994 Integument inspection of skin Location: left arm 09/27/2016 healing lacerations on arms Full Exam - General 1994 Integument inspection of skin Location: right arm 09/27/2016 healing lacerations on arms Full Exam - General 1994 Neurologic deep tendon reflexes Overall: deep tendon reflexes intact 09/27/2016 None Full Exam - General 1994 Neurologic cranial nerves Overall: crainial nerves 2 - 12 grossly intact 09/27/2016 None Full Exam - General 1994 Psychiatric orientation/consciousness Overall: oriented to person, place and time 09/27/2016 None Full Exam - General 1994 Psychiatric mood and affect Overall: normal mood and affect 09/27/2016 None Full Exam - General 1994 Constitutional general appearance Development: well developed 06/28/2016 None Full Exam - General 1994 Constitutional general appearance Development: appears stated age 0906/28/2016 None Full Exam - General 1994 Constitutional general appearance Hygiene/Attention to Grooming: good hygiene 06/28/2016 None Full Exam - General 1994 Eyes conjunctiva /eyelids Overall: conjunctiva clear 06/28/2016 None Full Exam - General 1994 Eyes conjunctiva /eyelids Overall: cornea clear 06/28/2016 None Full Exam - General 1994 Eyes conjunctiva /eyelids Overall: eyelids normal 06/28/2016 None Full Exam - General 1994 Eyes pupils and irises Overall: pupils equal, round, reactive to light and accomodation 06/28/2016 None Full Exam - General 1994 Ears/Nose/Throat otoscopic exam Overall: external auditory canals clear 06/28/2016 None Full Exam - General 1994 Ears/Nose/Throat otoscopic exam Tympanic membrane: air- fluid level 06/28/2016 None Full Exam - General 1994 Ears/Nose/Throat otoscopic exam Tympanic membrane: tympanosclerosis 06/28/2016 None Full Exam - General 1994 Ears/Nose/Throat lips/teeth/gingiva Overall: benign lips 06/28/2016 None Full Exam - General 1994 Ears/Nose/Throat lips/teeth/gingiva Overall: normal dentition 06/28/2016 None Full Exam - General 1994 Ears/Nose/Throat oral cavity/pharynx/larynx Overall: oral mucosa clear 06/28/2016 None Full Exam - General 1994 Ears/Nose/Throat oral cavity/pharynx/larynx Overall: oropharyngeal mucosa clear 06/28/2016 None Full Exam - General 1994 Ears/Nose/Throat oral cavity/pharynx/larynx Overall: hypopharynx benign 06/28/2016 None Full Exam - General 1994 Ears/Nose/Throat oral cavity/pharynx/larynx Overall: no masses 06/28/2016 None Full Exam - General 1994 Respiratory auscultation Overall: breath sounds clear bilaterally 06/28/2016 None Full Exam - General 1994 Respiratory respiratory effort/rhythm Overall: no retractions 06/28/2016 None Full Exam - General 1994 Respiratory respiratory effort/rhythm Overall: normal rate 06/28/2016 None Full Exam - General 1994 Cardiovascular extremities Overall: no clubbing 06/28/2016 None Full Exam - General 1994 Cardiovascular auscultation of heart Overall: regular rate 06/28/2016 None Full Exam - General 1994 Cardiovascular auscultation of heart Overall: normal heart sounds 06/28/2016 None Full Exam - General 1994 Cardiovascular auscultation of heart Systolic murmur: midsystolic 06/28/2016 None Full Exam - General 1994 Abdomen abdominal exam Overall: no tenderness 06/28/2016 None Full Exam - General 1994 Abdomen abdominal exam Overall: normal bowel sounds 06/28/2016 None Full Exam - General 1994 Abdomen rectal exam Prostate: enlarged 06/28/2016 None Full Exam - General 1994 Abdomen stool sample obtained Overall: normal appearance 06/28/2016 None Full Exam - General 1994 Abdomen stool sample obtained Overall: occult blood negative 06/28/2016 None Full Exam - General 1994 Neurologic deep tendon reflexes Overall: deep tendon reflexes intact 06/28/2016 None Full Exam - General 1994 Neurologic cranial nerves Overall: crainial nerves 2 - 12 grossly intact 06/28/2016 None Full Exam - General 1994 Psychiatric orientation/consciousness Overall: oriented to person, place and time 06/28/2016 None Full Exam - General 1994 Psychiatric mood and affect Overall: normal mood and affect 06/28/2016 None Full Exam - General 1994 Integument inspection of skin Location: right arm 06/28/2016 healing lacerations on arms Full Exam - General 1994 Integument inspection of skin Location: left arm 06/28/2016 healing lacerations on arms Full Exam - General 1994 Constitutional general appearance Development: well developed 04/27/2016 None Full Exam - General 1994 Constitutional general appearance Development: appears stated age 0704/27/2016 None Full Exam - General 1994 Constitutional general appearance Hygiene/Attention to Grooming: good hygiene 04/27/2016 None Full Exam - General 1994 Eyes conjunctiva /eyelids Overall: conjunctiva clear 04/27/2016 None Full Exam - General 1994 Eyes conjunctiva /eyelids Overall: cornea clear 04/27/2016 None Full Exam - General 1994 Eyes conjunctiva /eyelids Overall: eyelids normal 04/27/2016 None Full Exam - General 1994 Eyes pupils and irises Overall: pupils equal, round, reactive to light and accomodation 04/27/2016 None Full Exam - General 1994 Ears/Nose/Throat otoscopic exam Overall: external auditory canals clear 04/27/2016 None Full Exam - General 1994 Ears/Nose/Throat otoscopic exam Tympanic membrane: air- fluid level 04/27/2016 None Full Exam - General 1994 Ears/Nose/Throat otoscopic exam Tympanic membrane: tympanosclerosis 04/27/2016 None Full Exam - General 1994 Ears/Nose/Throat lips/teeth/gingiva Overall: benign lips 04/27/2016 None Full Exam - General 1994 Ears/Nose/Throat lips/teeth/gingiva Overall: normal dentition 04/27/2016 None Full Exam - General 1994 Ears/Nose/Throat oral cavity/pharynx/larynx Overall: oral mucosa clear 04/27/2016 None Full Exam - General 1994 Ears/Nose/Throat oral cavity/pharynx/larynx Overall: oropharyngeal mucosa clear 04/27/2016 None Full Exam - General 1994 Ears/Nose/Throat oral cavity/pharynx/larynx Overall: hypopharynx benign 04/27/2016 None Full Exam - General 1994 Ears/Nose/Throat oral cavity/pharynx/larynx Overall: no masses 04/27/2016 None Full Exam - General 1994 Respiratory auscultation Overall: breath sounds clear bilaterally 04/27/2016 None Full Exam - General 1994 Respiratory respiratory effort/rhythm Overall: no retractions 04/27/2016 None Full Exam - General 1994 Respiratory respiratory effort/rhythm Overall: normal rate 04/27/2016 None Full Exam - General 1994 Cardiovascular extremities Overall: no clubbing 04/27/2016 None Full Exam - General 1994 Cardiovascular auscultation of heart Overall: regular rate 04/27/2016 None Full Exam - General 1994 Cardiovascular auscultation of heart Overall: normal heart sounds 04/27/2016 None Full Exam - General 1994 Cardiovascular auscultation of heart Systolic murmur: midsystolic 04/27/2016 None Full Exam - General 1994 Abdomen abdominal exam Overall: no tenderness 04/27/2016 None Full Exam - General 1994 Abdomen abdominal exam Overall: normal bowel sounds 04/27/2016 None Full Exam - General 1994 Abdomen rectal exam Prostate: enlarged 04/27/2016 None Full Exam - General 1994 Abdomen stool sample obtained Overall: normal appearance 04/27/2016 None Full Exam - General 1994 Abdomen stool sample obtained Overall: occult blood negative 04/27/2016 None Full Exam - General 1994 Neurologic deep tendon reflexes Overall: deep tendon reflexes intact 04/27/2016 None Full Exam - General 1994 Neurologic cranial nerves Overall: crainial nerves 2 - 12 grossly intact 04/27/2016 None Full Exam - General 1994 Psychiatric orientation/consciousness Overall: oriented to person, place and time 04/27/2016 None Full Exam - General 1994 Psychiatric mood and affect Overall: normal mood and affect 04/27/2016 None Full Exam - General 1994 Constitutional general appearance Development: well developed 02/17/2016 None Full Exam - General 1994 Constitutional general appearance Development: appears stated age 0502/17/2016 None Full Exam - General 1994 Constitutional general appearance Hygiene/Attention to Grooming: good hygiene 02/17/2016 None Full Exam - General 1994 Eyes conjunctiva /eyelids Overall: conjunctiva clear 02/17/2016 None Full Exam - General 1994 Eyes conjunctiva /eyelids Overall: cornea clear 02/17/2016 None Full Exam - General 1994 Eyes conjunctiva /eyelids Overall: eyelids normal 02/17/2016 None Full Exam - General 1994 Eyes pupils and irises Overall: pupils equal, round, reactive to light and accomodation 02/17/2016 None Full Exam - General 1994 Ears/Nose/Throat lips/teeth/gingiva Overall: benign lips 02/17/2016 None Full Exam - General 1994 Ears/Nose/Throat lips/teeth/gingiva Overall: normal dentition 02/17/2016 None Full Exam - General 1994 Ears/Nose/Throat oral cavity/pharynx/larynx Overall: oral mucosa clear 02/17/2016 None Full Exam - General 1994 Ears/Nose/Throat oral cavity/pharynx/larynx Overall: oropharyngeal mucosa clear 02/17/2016 None Full Exam - General 1994 Ears/Nose/Throat oral cavity/pharynx/larynx Overall: hypopharynx benign 02/17/2016 None Full Exam - General 1994 Ears/Nose/Throat oral cavity/pharynx/larynx Overall: no masses 02/17/2016 None Full Exam - General 1994 Respiratory auscultation Overall: breath sounds clear bilaterally 02/17/2016 None Full Exam - General 1994 Respiratory respiratory effort/rhythm Overall: no retractions 02/17/2016 None Full Exam - General 1994 Respiratory respiratory effort/rhythm Overall: normal rate 02/17/2016 None Full Exam - General 1994 Cardiovascular extremities Overall: no clubbing 02/17/2016 None Full Exam - General 1994 Cardiovascular auscultation of heart Overall: regular rate 02/17/2016 None Full Exam - General 1994 Cardiovascular auscultation of heart Overall: normal heart sounds 02/17/2016 None Full Exam - General 1994 Cardiovascular auscultation of heart Systolic murmur: midsystolic 02/17/2016 None Full Exam - General 1994 Abdomen abdominal exam Overall: no tenderness 02/17/2016 None Full Exam - General 1994 Abdomen abdominal exam Overall: normal bowel sounds 02/17/2016 None Full Exam - General 1994 Abdomen stool sample obtained Overall: normal appearance 02/17/2016 None Full Exam - General 1994 Abdomen stool sample obtained Overall: occult blood negative 02/17/2016 None Full Exam - General 1994 Neurologic deep tendon reflexes Overall: deep tendon reflexes intact 02/17/2016 None Full Exam - General 1994 Neurologic cranial nerves Overall: crainial nerves 2 - 12 grossly intact 02/17/2016 None Full Exam - General 1994 Psychiatric orientation/consciousness Overall: oriented to person, place and time 02/17/2016 None Full Exam - General 1994 Psychiatric mood and affect Overall: normal mood and affect 02/17/2016 None Full Exam - General 1994 Musculoskeletal lower extremity Inspection - foot: swelling 02/17/2016 --Improved Full Exam - General 1994 Musculoskeletal lower extremity Inspection - foot: redness 02/17/2016 --Improved Full Exam - General 1994 Constitutional general appearance Development: well developed 01/20/2016 None Full Exam - General 1994 Constitutional general appearance Development: appears stated age 0401/20/2016 None Full Exam - General 1994 Constitutional general appearance Hygiene/Attention to Grooming: good hygiene 01/20/2016 None Full Exam - General 1994 Eyes conjunctiva /eyelids Overall: conjunctiva clear 01/20/2016 None Full Exam - General 1994 Eyes conjunctiva /eyelids Overall: cornea clear 01/20/2016 None Full Exam - General 1994 Eyes conjunctiva /eyelids Overall: eyelids normal 01/20/2016 None Full Exam - General 1994 Eyes pupils and irises Overall: pupils equal, round, reactive to light and accomodation 01/20/2016 None Full Exam - General 1994 Ears/Nose/Throat lips/teeth/gingiva Overall: benign lips 01/20/2016 None Full Exam - General 1994 Ears/Nose/Throat lips/teeth/gingiva Overall: normal dentition 01/20/2016 None Full Exam - General 1994 Ears/Nose/Throat oral cavity/pharynx/larynx Overall: oral mucosa clear 01/20/2016 None Full Exam - General 1994 Ears/Nose/Throat oral cavity/pharynx/larynx Overall: oropharyngeal mucosa clear 01/20/2016 None Full Exam - General 1994 Ears/Nose/Throat oral cavity/pharynx/larynx Overall: hypopharynx benign 01/20/2016 None Full Exam - General 1994 Ears/Nose/Throat oral cavity/pharynx/larynx Overall: no masses 01/20/2016 None Full Exam - General 1994 Respiratory auscultation Overall: breath sounds clear bilaterally 01/20/2016 None Full Exam - General 1994 Respiratory respiratory effort/rhythm Overall: no retractions 01/20/2016 None Full Exam - General 1994 Respiratory respiratory effort/rhythm Overall: normal rate 01/20/2016 None Full Exam - General 1994 Cardiovascular extremities Overall: no clubbing 01/20/2016 None Full Exam - General 1994 Cardiovascular auscultation of heart Overall: regular rate 01/20/2016 None Full Exam - General 1994 Cardiovascular auscultation of heart Overall: normal heart sounds 01/20/2016 None Full Exam - General 1994 Cardiovascular auscultation of heart Systolic murmur: midsystolic 01/20/2016 None Full Exam - General 1994 Abdomen abdominal exam Overall: no tenderness 01/20/2016 None Full Exam - General 1994 Abdomen abdominal exam Overall: normal bowel sounds 01/20/2016 None Full Exam - General 1994 Abdomen stool sample obtained Overall: normal appearance 01/20/2016 None Full Exam - General 1994 Abdomen stool sample obtained Overall: occult blood negative 01/20/2016 None Full Exam - General 1994 Musculoskeletal lower extremity Inspection - foot: swelling 01/20/2016 None Full Exam - General 1994 Musculoskeletal lower extremity Inspection - foot: redness 01/20/2016 --Resolved Full Exam - General 1994 Musculoskeletal lower extremity Palpation - foot: swelling 01/20/2016 None Full Exam - General 1994 Musculoskeletal lower extremity Palpation - foot: tender 01/20/2016 --Resolved Full Exam - General 1994 Neurologic deep tendon reflexes Overall: deep tendon reflexes intact 01/20/2016 None Full Exam - General 1994 Neurologic cranial nerves Overall: crainial nerves 2 - 12 grossly intact 01/20/2016 None Full Exam - General 1994 Psychiatric orientation/consciousness Overall: oriented to person, place and time 01/20/2016 None Full Exam - General 1994 Psychiatric mood and affect Overall: normal mood and affect 01/20/2016 None Full Exam - General 1994 Constitutional general appearance Development: well developed 01/06/2016 None Full Exam - General 1994 Constitutional general appearance Development: appears stated age 0301/06/2016 None Full Exam - General 1994 Constitutional general appearance Hygiene/Attention to Grooming: good hygiene 01/06/2016 None Full Exam - General 1994 Eyes conjunctiva /eyelids Overall: conjunctiva clear 01/06/2016 None Full Exam - General 1994 Eyes conjunctiva /eyelids Overall: cornea clear 01/06/2016 None Full Exam - General 1994 Eyes conjunctiva /eyelids Overall: eyelids normal 01/06/2016 None Full Exam - General 1994 Eyes pupils and irises Overall: pupils equal, round, reactive to light and accomodation 01/06/2016 None Full Exam - General 1994 Ears/Nose/Throat lips/teeth/gingiva Overall: benign lips 01/06/2016 None Full Exam - General 1994 Ears/Nose/Throat lips/teeth/gingiva Overall: normal dentition 01/06/2016 None Full Exam - General 1994 Ears/Nose/Throat oral cavity/pharynx/larynx Overall: oral mucosa clear 01/06/2016 None Full Exam - General 1994 Ears/Nose/Throat oral cavity/pharynx/larynx Overall: oropharyngeal mucosa clear 01/06/2016 None Full Exam - General 1994 Ears/Nose/Throat oral cavity/pharynx/larynx Overall: hypopharynx benign 01/06/2016 None Full Exam - General 1994 Ears/Nose/Throat oral cavity/pharynx/larynx Overall: no masses 01/06/2016 None Full Exam - General 1994 Respiratory auscultation Overall: breath sounds clear bilaterally 01/06/2016 None Full Exam - General 1994 Respiratory respiratory effort/rhythm Overall: no retractions 01/06/2016 None Full Exam - General 1994 Respiratory respiratory effort/rhythm Overall: normal rate 01/06/2016 None Full Exam - General 1994 Cardiovascular extremities Overall: no clubbing 01/06/2016 None Full Exam - General 1994 Cardiovascular auscultation of heart Overall: regular rate 01/06/2016 None Full Exam - General 1994 Cardiovascular auscultation of heart Overall: normal heart sounds 01/06/2016 None Full Exam - General 1994 Cardiovascular auscultation of heart Systolic murmur: midsystolic 01/06/2016 None Full Exam - General 1994 Abdomen abdominal exam Overall: no tenderness 01/06/2016 None Full Exam - General 1994 Abdomen abdominal exam Overall: normal bowel sounds 01/06/2016 None Full Exam - General 1994 Abdomen stool sample obtained Overall: normal appearance 01/06/2016 None Full Exam - General 1994 Abdomen stool sample obtained Overall: occult blood negative 01/06/2016 None Full Exam - General 1994 Neurologic deep tendon reflexes Overall: deep tendon reflexes intact 01/06/2016 None Full Exam - General 1994 Neurologic cranial nerves Overall: crainial nerves 2 - 12 grossly intact 01/06/2016 None Full Exam - General 1994 Psychiatric orientation/consciousness Overall: oriented to person, place and time 01/06/2016 None Full Exam - General 1994 Psychiatric mood and affect Overall: normal mood and affect 01/06/2016 None Full Exam - General 1994 Musculoskeletal lower extremity Inspection - foot: swelling 01/06/2016 None Full Exam - General 1994 Musculoskeletal lower extremity Inspection - foot: redness 01/06/2016 None Full Exam - General 1994 Musculoskeletal lower extremity Palpation - foot: swelling 01/06/2016 None Full Exam - General 1994 Musculoskeletal lower extremity Palpation - foot: tender 01/06/2016 None Full Exam - General 1994 Constitutional general appearance Development: well developed 12/16/2015 None Full Exam - General 1994 Constitutional general appearance Development: appears stated age 0312/16/2015 None Full Exam - General 1994 Constitutional general appearance Hygiene/Attention to Grooming: good hygiene 12/16/2015 None Full Exam - General 1994 Eyes conjunctiva /eyelids Overall: conjunctiva clear 12/16/2015 None Full Exam - General 1994 Eyes conjunctiva /eyelids Overall: cornea clear 12/16/2015 None Full Exam - General 1994 Eyes conjunctiva /eyelids Overall: eyelids normal 12/16/2015 None Full Exam - General 1994 Eyes pupils and irises Overall: pupils equal, round, reactive to light and accomodation 12/16/2015 None Full Exam - General 1994 Ears/Nose/Throat otoscopic exam Overall: external auditory canals clear 12/16/2015 None Full Exam - General 1994 Ears/Nose/Throat otoscopic exam Tympanic membrane: tympanosclerosis 12/16/2015 None Full Exam - General 1994 Ears/Nose/Throat lips/teeth/gingiva Overall: benign lips 12/16/2015 None Full Exam - General 1994 Ears/Nose/Throat lips/teeth/gingiva Overall: normal dentition 12/16/2015 None Full Exam - General 1994 Ears/Nose/Throat oral cavity/pharynx/larynx Overall: oral mucosa clear 12/16/2015 None Full Exam - General 1994 Ears/Nose/Throat oral cavity/pharynx/larynx Overall: oropharyngeal mucosa clear 12/16/2015 None Full Exam - General 1994 Ears/Nose/Throat oral cavity/pharynx/larynx Overall: no masses 12/16/2015 None Full Exam - General 1994 Respiratory auscultation Overall: breath sounds clear bilaterally 12/16/2015 None Full Exam - General 1994 Respiratory respiratory effort/rhythm Overall: no retractions 12/16/2015 None Full Exam - General 1994 Cardiovascular extremities Overall: no clubbing 12/16/2015 None Full Exam - General 1994 Cardiovascular auscultation of heart Overall: regular rate 12/16/2015 None Full Exam - General 1994 Cardiovascular auscultation of heart Overall: normal heart sounds 12/16/2015 None Full Exam - General 1994 Cardiovascular auscultation of heart Systolic murmur: midsystolic 12/16/2015 None Full Exam - General 1994 Abdomen abdominal exam Overall: no tenderness 12/16/2015 None Full Exam - General 1994 Abdomen abdominal exam Overall: normal bowel sounds 12/16/2015 None Full Exam - General 1994 Neurologic cranial nerves Overall: crainial nerves 2 - 12 grossly intact 12/16/2015 None Full Exam - General 1994 Psychiatric orientation/consciousness Overall: oriented to person, place and time 12/16/2015 None Full Exam - General 1994 Constitutional general appearance Evidence of Distress: mild distress 12/16/2015 None Full Exam - General 1994 Constitutional general appearance Evidence of Distress: anxious 12/16/2015 None Full Exam - General 1994 Ears/Nose/Throat otoscopic exam Overall: tympanic membranes clear 12/16/2015 None Full Exam - General 1994 Respiratory respiratory effort/rhythm Rate: tachypnea 12/16/2015 None Full Exam - General 1994 Musculoskeletal lower extremity Inspection - foot: redness 12/16/2015 None Full Exam - General 1994 Musculoskeletal lower extremity Inspection - foot: swelling 12/16/2015 None Full Exam - General 1994 Musculoskeletal lower extremity Palpation - foot: tender 12/16/2015 None Full Exam - General 1994 Musculoskeletal lower extremity Palpation - foot: swelling 12/16/2015 None Full Exam - General 1994 Musculoskeletal lower extremity ROM - foot: pain with ROM 12/16/2015 None Full Exam - General 1994 Psychiatric mood and affect Mood: depressed 12/16/2015 None Full Exam - General 1994 Psychiatric mood and affect Mood: anxious 12/16/2015 None Full Exam - General 1994 Integument inspection of skin Location: inguinal area 12/16/2015 left Full Exam - General 1994 Integument inspection of skin Rash/Lesions: surgical site 12/16/2015 scabbing to area, otherwise healing well Full Exam - General 1994 Constitutional general appearance Development: well developed 11/27/2015 None Full Exam - General 1994 Constitutional general appearance Development: appears stated age 0211/27/2015 None Full Exam - General 1994 Constitutional general appearance Evidence of Distress: mild distress 11/27/2015 None Full Exam - General 1994 Constitutional general appearance Evidence of Distress: anxious 11/27/2015 None Full Exam - General 1994 Constitutional general appearance Hygiene/Attention to Grooming: good hygiene 11/27/2015 None Full Exam - General 1994 Eyes conjunctiva /eyelids Overall: conjunctiva clear 11/27/2015 None Full Exam - General 1994 Eyes conjunctiva /eyelids Overall: cornea clear 11/27/2015 None Full Exam - General 1994 Eyes conjunctiva /eyelids Overall: eyelids normal 11/27/2015 None Full Exam - General 1994 Eyes pupils and irises Overall: pupils equal, round, reactive to light and accomodation 11/27/2015 None Full Exam - General 1994 Ears/Nose/Throat lips/teeth/gingiva Overall: benign lips 11/27/2015 None Full Exam - General 1994 Ears/Nose/Throat lips/teeth/gingiva Overall: normal dentition 11/27/2015 None Full Exam - General 1994 Ears/Nose/Throat oral cavity/pharynx/larynx Overall: oral mucosa clear 11/27/2015 None Full Exam - General 1994 Respiratory auscultation Overall: breath sounds clear bilaterally 11/27/2015 None Full Exam - General 1994 Respiratory respiratory effort/rhythm Overall: no retractions 11/27/2015 None Full Exam - General 1994 Respiratory respiratory effort/rhythm Rate: tachypnea 11/27/2015 None Full Exam - General 1994 Cardiovascular extremities Overall: no clubbing 11/27/2015 None Full Exam - General 1994 Cardiovascular auscultation of heart Overall: regular rate 11/27/2015 None Full Exam - General 1994 Cardiovascular auscultation of heart Overall: normal heart sounds 11/27/2015 None Full Exam - General 1994 Cardiovascular auscultation of heart Systolic murmur: midsystolic 11/27/2015 None Full Exam - General 1994 Abdomen abdominal exam Overall: no tenderness 11/27/2015 None Full Exam - General 1994 Abdomen abdominal exam Overall: normal bowel sounds 11/27/2015 None Full Exam - General 1994 Integument inspection of skin Location: inguinal area 11/27/2015 left Full Exam - General 1994 Integument inspection of skin Rash/Lesions: surgical site 11/27/2015 scabbing to area, otherwise healing well Full Exam - General 1994 Neurologic cranial nerves Overall: crainial nerves 2 - 12 grossly intact 11/27/2015 None Full Exam - General 1994 Psychiatric orientation/consciousness Overall: oriented to person, place and time 11/27/2015 None Full Exam - General 1994 Psychiatric mood and affect Mood: depressed 11/27/2015 None Full Exam - General 1994 Psychiatric mood and affect Mood: anxious 11/27/2015 None Full Exam - General 1994 Constitutional general appearance Development: well developed 07/30/2015 None Full Exam - General 1994 Constitutional general appearance Development: appears stated age 1007/30/2015 None Full Exam - General 1994 Constitutional general appearance Hygiene/Attention to Grooming: good hygiene 07/30/2015 None Full Exam - General 1994 Eyes conjunctiva /eyelids Overall: conjunctiva clear 07/30/2015 None Full Exam - General 1994 Eyes conjunctiva /eyelids Overall: cornea clear 07/30/2015 None Full Exam - General 1994 Eyes conjunctiva /eyelids Overall: eyelids normal 07/30/2015 None Full Exam - General 1994 Eyes pupils and irises Overall: pupils equal, round, reactive to light and accomodation 07/30/2015 None Full Exam - General 1994 Ears/Nose/Throat otoscopic exam Overall: external auditory canals clear 07/30/2015 None Full Exam - General 1994 Ears/Nose/Throat otoscopic exam Tympanic membrane: air- fluid level 07/30/2015 None Full Exam - General 1994 Ears/Nose/Throat otoscopic exam Tympanic membrane: tympanosclerosis 07/30/2015 None Full Exam - General 1994 Ears/Nose/Throat lips/teeth/gingiva Overall: benign lips 07/30/2015 None Full Exam - General 1994 Ears/Nose/Throat lips/teeth/gingiva Overall: normal dentition 07/30/2015 None Full Exam - General 1994 Ears/Nose/Throat oral cavity/pharynx/larynx Overall: oral mucosa clear 07/30/2015 None Full Exam - General 1994 Ears/Nose/Throat oral cavity/pharynx/larynx Overall: oropharyngeal mucosa clear 07/30/2015 None Full Exam - General 1994 Ears/Nose/Throat oral cavity/pharynx/larynx Overall: hypopharynx benign 07/30/2015 None Full Exam - General 1994 Ears/Nose/Throat oral cavity/pharynx/larynx Overall: no masses 07/30/2015 None Full Exam - General 1994 Respiratory auscultation Overall: breath sounds clear bilaterally 07/30/2015 None Full Exam - General 1994 Respiratory respiratory effort/rhythm Overall: no retractions 07/30/2015 None Full Exam - General 1994 Respiratory respiratory effort/rhythm Overall: normal rate 07/30/2015 None Full Exam - General 1994 Cardiovascular extremities Overall: no clubbing 07/30/2015 None Full Exam - General 1994 Cardiovascular auscultation of heart Overall: regular rate 07/30/2015 None Full Exam - General 1994 Cardiovascular auscultation of heart Overall: normal heart sounds 07/30/2015 None Full Exam - General 1994 Cardiovascular auscultation of heart Systolic murmur: midsystolic 07/30/2015 None Full Exam - General 1994 Abdomen abdominal exam Overall: no tenderness 07/30/2015 None Full Exam - General 1994 Abdomen abdominal exam Overall: normal bowel sounds 07/30/2015 None Full Exam - General 1994 Abdomen rectal exam Prostate: enlarged 07/30/2015 None Full Exam - General 1994 Abdomen stool sample obtained Overall: normal appearance 07/30/2015 None Full Exam - General 1994 Abdomen stool sample obtained Overall: occult blood negative 07/30/2015 None Full Exam - General 1994 Neurologic deep tendon reflexes Overall: deep tendon reflexes intact 07/30/2015 None Full Exam - General 1994 Neurologic cranial nerves Overall: crainial nerves 2 - 12 grossly intact 07/30/2015 None Full Exam - General 1994 Psychiatric orientation/consciousness Overall: oriented to person, place and time 07/30/2015 None Full Exam - General 1994 Psychiatric mood and affect Overall: normal mood and affect 07/30/2015 None Full Exam - General 1994 Constitutional general appearance Development: well developed 06/09/2015 None Full Exam - General 1994 Constitutional general appearance Development: appears stated age 0806/09/2015 None Full Exam - General 1994 Constitutional general appearance Hygiene/Attention to Grooming: good hygiene 06/09/2015 None Full Exam - General 1994 Eyes conjunctiva /eyelids Overall: conjunctiva clear 06/09/2015 None Full Exam - General 1994 Eyes conjunctiva /eyelids Overall: cornea clear 06/09/2015 None Full Exam - General 1994 Eyes conjunctiva /eyelids Overall: eyelids normal 06/09/2015 None Full Exam - General 1994 Eyes pupils and irises Overall: pupils equal, round, reactive to light and accomodation 06/09/2015 None Full Exam - General 1994 Ears/Nose/Throat otoscopic exam Overall: external auditory canals clear 06/09/2015 None Full Exam - General 1994 Ears/Nose/Throat otoscopic exam Tympanic membrane: tympanosclerosis 06/09/2015 None Full Exam - General 1994 Ears/Nose/Throat lips/teeth/gingiva Overall: benign lips 06/09/2015 None Full Exam - General 1994 Ears/Nose/Throat lips/teeth/gingiva Overall: normal dentition 06/09/2015 None Full Exam - General 1994 Ears/Nose/Throat oral cavity/pharynx/larynx Overall: oral mucosa clear 06/09/2015 None Full Exam - General 1994 Ears/Nose/Throat oral cavity/pharynx/larynx Overall: oropharyngeal mucosa clear 06/09/2015 None Full Exam - General 1994 Ears/Nose/Throat oral cavity/pharynx/larynx Overall: hypopharynx benign 06/09/2015 None Full Exam - General 1994 Ears/Nose/Throat oral cavity/pharynx/larynx Overall: no masses 06/09/2015 None Full Exam - General 1994 Respiratory auscultation Overall: breath sounds clear bilaterally 06/09/2015 None Full Exam - General 1994 Respiratory respiratory effort/rhythm Overall: no retractions 06/09/2015 None Full Exam - General 1994 Respiratory respiratory effort/rhythm Overall: normal rate 06/09/2015 None Full Exam - General 1994 Cardiovascular extremities Overall: no clubbing 06/09/2015 None Full Exam - General 1994 Cardiovascular auscultation of heart Overall: regular rate 06/09/2015 None Full Exam - General 1994 Cardiovascular auscultation of heart Overall: normal heart sounds 06/09/2015 None Full Exam - General 1994 Cardiovascular auscultation of heart Systolic murmur: midsystolic 06/09/2015 None Full Exam - General 1994 Abdomen abdominal exam Overall: no tenderness 06/09/2015 None Full Exam - General 1994 Abdomen abdominal exam Overall: normal bowel sounds 06/09/2015 None Full Exam - General 1994 Neurologic deep tendon reflexes Overall: deep tendon reflexes intact 06/09/2015 None Full Exam - General 1994 Neurologic cranial nerves Overall: crainial nerves 2 - 12 grossly intact 06/09/2015 None Full Exam - General 1994 Psychiatric orientation/consciousness Overall: oriented to person, place and time 06/09/2015 None Full Exam - General 1994 Psychiatric mood and affect Overall: normal mood and affect 06/09/2015 None Full Exam - General 1994 Abdomen abdominal exam Contour: protuberant 06/09/2015 diastasis recti Full Exam - General 1994 Lymphatic neck nodes Overall: posterior cervical chain benign 06/09/2015 None Full Exam - General 1994 Lymphatic neck nodes Overall: anterior cervical chain benign 06/09/2015 None Full Exam - General 1994 Musculoskeletal gait and station Gait: asymmetric 06/09/2015 None Full Exam - General 1994 Constitutional general appearance Development: well developed 04/29/2015 None Full Exam - General 1994 Constitutional general appearance Development: appears stated age 0704/29/2015 None Full Exam - General 1994 Constitutional general appearance Hygiene/Attention to Grooming: good hygiene 04/29/2015 None Full Exam - General 1994 Eyes conjunctiva /eyelids Overall: conjunctiva clear 04/29/2015 None Full Exam - General 1994 Eyes conjunctiva /eyelids Overall: cornea clear 04/29/2015 None Full Exam - General 1994 Eyes conjunctiva /eyelids Overall: eyelids normal 04/29/2015 None Full Exam - General 1994 Eyes pupils and irises Overall: pupils equal, round, reactive to light and accomodation 04/29/2015 None Full Exam - General 1994 Ears/Nose/Throat otoscopic exam Overall: external auditory canals clear 04/29/2015 None Full Exam - General 1994 Ears/Nose/Throat otoscopic exam Tympanic membrane: air- fluid level 04/29/2015 None Full Exam - General 1994 Ears/Nose/Throat otoscopic exam Tympanic membrane: tympanosclerosis 04/29/2015 None Full Exam - General 1994 Ears/Nose/Throat lips/teeth/gingiva Overall: benign lips 04/29/2015 None Full Exam - General 1994 Ears/Nose/Throat lips/teeth/gingiva Overall: normal dentition 04/29/2015 None Full Exam - General 1994 Ears/Nose/Throat oral cavity/pharynx/larynx Overall: oral mucosa clear 04/29/2015 None Full Exam - General 1994 Ears/Nose/Throat oral cavity/pharynx/larynx Overall: oropharyngeal mucosa clear 04/29/2015 None Full Exam - General 1994 Ears/Nose/Throat oral cavity/pharynx/larynx Overall: hypopharynx benign 04/29/2015 None Full Exam - General 1994 Ears/Nose/Throat oral cavity/pharynx/larynx Overall: no masses 04/29/2015 None Full Exam - General 1994 Respiratory auscultation Overall: breath sounds clear bilaterally 04/29/2015 None Full Exam - General 1994 Respiratory respiratory effort/rhythm Overall: no retractions 04/29/2015 None Full Exam - General 1994 Respiratory respiratory effort/rhythm Overall: normal rate 04/29/2015 None Full Exam - General 1994 Cardiovascular extremities Overall: no clubbing 04/29/2015 None Full Exam - General 1994 Cardiovascular auscultation of heart Overall: regular rate 04/29/2015 None Full Exam - General 1994 Cardiovascular auscultation of heart Overall: normal heart sounds 04/29/2015 None Full Exam - General 1994 Cardiovascular auscultation of heart Systolic murmur: midsystolic 04/29/2015 None Full Exam - General 1994 Abdomen abdominal exam Overall: no tenderness 04/29/2015 None Full Exam - General 1994 Abdomen abdominal exam Overall: normal bowel sounds 04/29/2015 None Full Exam - General 1994 Abdomen rectal exam Prostate: enlarged 04/29/2015 None Full Exam - General 1994 Abdomen stool sample obtained Overall: normal appearance 04/29/2015 None Full Exam - General 1994 Abdomen stool sample obtained Overall: occult blood negative 04/29/2015 None Full Exam - General 1994 Neurologic deep tendon reflexes Overall: deep tendon reflexes intact 04/29/2015 None Full Exam - General 1994 Neurologic cranial nerves Overall: crainial nerves 2 - 12 grossly intact 04/29/2015 None Full Exam - General 1994 Psychiatric orientation/consciousness Overall: oriented to person, place and time 04/29/2015 None Full Exam - General 1994 Psychiatric mood and affect Overall: normal mood and affect 04/29/2015 None Full Exam - General 1994 Constitutional general appearance Development: appears stated age 0502/19/2015 None Full Exam - General 1994 Constitutional general appearance Development: well developed 02/19/2015 None Full Exam - General 1994 Constitutional general appearance Hygiene/Attention to Grooming: good hygiene 02/19/2015 None Full Exam - General 1994 Eyes conjunctiva /eyelids Overall: conjunctiva clear 02/19/2015 None Full Exam - General 1994 Eyes conjunctiva /eyelids Overall: cornea clear 02/19/2015 None Full Exam - General 1994 Eyes conjunctiva /eyelids Overall: eyelids normal 02/19/2015 None Full Exam - General 1994 Eyes pupils and irises Overall: pupils equal, round, reactive to light and accomodation 02/19/2015 None Full Exam - General 1994 Ears/Nose/Throat otoscopic exam Overall: external auditory canals clear 02/19/2015 None Full Exam - General 1994 Ears/Nose/Throat lips/teeth/gingiva Overall: benign lips 02/19/2015 None Full Exam - General 1994 Ears/Nose/Throat lips/teeth/gingiva Overall: normal dentition 02/19/2015 None Full Exam - General 1994 Ears/Nose/Throat oral cavity/pharynx/larynx Overall: hypopharynx benign 02/19/2015 None Full Exam - General 1994 Ears/Nose/Throat oral cavity/pharynx/larynx Overall: no masses 02/19/2015 None Full Exam - General 1994 Ears/Nose/Throat oral cavity/pharynx/larynx Overall: oral mucosa clear 02/19/2015 None Full Exam - General 1994 Ears/Nose/Throat oral cavity/pharynx/larynx Overall: oropharyngeal mucosa clear 02/19/2015 None Full Exam - General 1994 Respiratory auscultation Overall: breath sounds clear bilaterally 02/19/2015 None Full Exam - General 1994 Respiratory respiratory effort/rhythm Overall: no retractions 02/19/2015 None Full Exam - General 1994 Respiratory respiratory effort/rhythm Overall: normal rate 02/19/2015 None Full Exam - General 1994 Cardiovascular extremities Overall: no clubbing 02/19/2015 None Full Exam - General 1994 Cardiovascular auscultation of heart Overall: normal heart sounds 02/19/2015 None Full Exam - General 1994 Cardiovascular auscultation of heart Overall: regular rate 02/19/2015 None Full Exam - General 1994 Abdomen abdominal exam Overall: no tenderness 02/19/2015 None Full Exam - General 1994 Abdomen abdominal exam Overall: normal bowel sounds 02/19/2015 None Full Exam - General 1994 Integument inspection of skin Overall: few scattered moles, no gross abnormalities 02/19/2015 None Full Exam - General 1994 Neurologic deep tendon reflexes Overall: deep tendon reflexes intact 02/19/2015 None Full Exam - General 1994 Neurologic cranial nerves Overall: crainial nerves 2 - 12 grossly intact 02/19/2015 None Full Exam - General 1994 Psychiatric orientation/consciousness Overall: oriented to person, place and time 02/19/2015 None Full Exam - General 1994 Psychiatric mood and affect Overall: normal mood and affect 02/19/2015 None Full Exam - General 1994 Abdomen rectal exam Prostate: enlarged 02/19/2015 None Full Exam - General 1994 Abdomen stool sample obtained Overall: normal appearance 02/19/2015 None Full Exam - General 1994 Abdomen stool sample obtained Overall: occult blood negative 02/19/2015 None Full Exam - General 1994 Cardiovascular auscultation of heart Systolic murmur: midsystolic 02/19/2015 None Full Exam - General 1994 Ears/Nose/Throat otoscopic exam Tympanic membrane: air- fluid level 02/19/2015 None Full Exam - General 1994 Ears/Nose/Throat otoscopic exam Tympanic membrane: tympanosclerosis 02/19/2015 None Procedures Procedure Codes Date PPPS, SUBSEQ VISIT CPT -4: G0439 08/10/2018 ADMIN INFLUENZA VIRUS VAC CPT-4: G0008 07/05/2018 FLU VACC PRSV FREE INC ANTIG Formatting Model/CDA Sections, Assigned to/Sharee Ramirez CPT-4: [id number] 07/05/2018 THER/PROPH/DIAG INJ SC/IM CPT-4: 53357 06/12/2018 TRIAMCINOLONE ACET INJ NOS CPT-4: J3301 06/12/2018 PPPS, SUBSEQ VISIT CPT -4: G0439 08/03/2017 ADMIN INFLUENZA VIRUS VAC CPT-4: G0008 06/28/2016 FLU VACC PRSV FREE INC ANTIG CPT-4: 54443 06/28/2016 TENIVAC TD VACCINE NO PRSRV 7/> IM CPT-4: 28066 06/28/2016 OCCULT BLOOD FECES CPT -4: 44197 02/19/2015 Vital Signs Date Vital 12/13/2018 Blood Pressure 1: 114/78 Code : 8480-6 BMI: 29.4 Code : 56604-8 Heart Rate 1 : 73 bpm Height: 6' SpO2: 93% Weight: 217 lbs 11/27/2018 Blood Pressure 1: 110/70 Code : 8480-6 BMI: 28.5 Code : 66220-0 Heart Rate 1 : 90 bpm Height: 6' SpO2: 95% Temperature: 36.8 (C) / 98.2 (F) Weight: 210 lbs 8 oz 09/26/2018 Blood Pressure 1: 130/80 Code : 8480-6 BMI: 29.6 Code : 18980-0 Heart Rate 1 : 98 bpm Height: 6' SpO2: 93% Weight: 218 lbs 08/10/2018 BMI: 29.4 Code: 22824-5 Height: 6' Weight: 217 lbs 07/26/2018 Blood Pressure 1: 116/72 Code : 8480-6 BMI: 29.4 Code : 28196-3 Heart Rate 1 : 102 bpm Height: 6' SpO2: 96% Weight: 217 lbs 07/05/2018 Blood Pressure 1: 132/72 Code : 8480-6 Heart Rate 1: 60 bpm SpO2: 95% 06/12/2018 Blood Pressure 1: 120/78 Code : 8480-6 BMI: 29.6 Code : 48835-1 Heart Rate 1 : 103 bpm Height: 6' SpO2: 96% Weight: 218 lbs 05/10/2018 Blood Pressure 1: 114/68 Code : 8480-6 BMI: 29.4 Code : 00970-3 Heart Rate 1 : 92 bpm Height: 6' SpO2: 97% Weight: 217 lbs 03/27/2018 Blood Pressure 1: 126/74 Code : 8480-6 BMI: 30.1 Code : 44550-5 Heart Rate 1 : 103 bpm Height: 6' SpO2: 96% Weight: 222 lbs 01/25/2018 Blood Pressure 1: 122/70 Code : 8480-6 Blood Pressure 2: 126/73 Code: 8480-6 Heart Rate 1: 63 bpm SpO2: 94% 01/24/2018 Blood Pressure 1: 110/72 Code : 8480-6 BMI: 29.7 Code : 51251-9 Heart Rate 1 : 88 bpm Height: 6' SpO2: 95% Weight: 219 lbs 12/08/2017 Blood Pressure 1: 120/68 Code : 8480-6 BMI: 30.0 Code : 14577-3 Heart Rate 1 : 91 bpm Height: 6' SpO2: 96% Temperature: 36.7 (C) / 98.1 (F) Weight: 221 lbs 10/27/2017 Blood Pressure 1: 124/76 Code : 8480-6 BMI: 30.1 Code : 50769-0 Heart Rate 1 : 69 bpm Height: 6' SpO2: 95% Weight: 222 lbs 09/29/2017 Blood Pressure 1: 118/66 Code : 8480-6 BMI: 29.9 Code : 74408-2 Heart Rate 1 : 81 bpm Height: 6' SpO2: 95% Weight: 220 lbs 8 oz 09/01/2017 Blood Pressure 1: 122/82 Code : 8480-6 BMI: 29.6 Code : 70870-7 Heart Rate 1 : 75 bpm Height: 6' SpO2: 97% Weight: 218 lbs 08/03/2017 Blood Pressure 1: 120/68 Code : 8480-6 Heart Rate 1: 68 bpm Height: 6' SpO2: 94% Waist Measure (cm): 97 cm 04/26/2017 Blood Pressure 1: 122/72 Code : 8480-6 BMI: 29.4 Code : 00220-2 Heart Rate 1 : 85 bpm Height: 6' SpO2: 92% Weight: 217 lbs 01/25/2017 Blood Pressure 1: 118/78 Code : 8480-6 BMI: 29.4 Code : 89973-6 Heart Rate 1 : 72 bpm Height: 6' SpO2: 94% Temperature: 36.9 (C) / 98.5 (F) Weight: 217 lbs 10/26/2016 Blood Pressure 1: 152/86 Code : 8480-6 BMI: 29.7 Code : 90444-3 Heart Rate 1 : 58 bpm Height: 6' Weight: 219 lbs 09/27/2016 Blood Pressure 1: 138/80 Code : 8480-6 BMI: 29.4 Code : 06829-0 Heart Rate 1 : 52 bpm Height: 6' SpO2: 98% Weight: 217 lbs 06/28/2016 Blood Pressure 1: 128/86 Code : 8480-6 BMI: 29.6 Code : 82828-8 Heart Rate 1 : 69 bpm Height: 6' SpO2: 93% Weight: 218 lbs 04/27/2016 Blood Pressure 1: 118/82 Code : 8480-6 BMI: 29.3 Code : 34254-6 Heart Rate 1 : 85 bpm Height: 6' SpO2: 98% Weight: 216 lbs 02/17/2016 Blood Pressure 1: 132/80 Code : 8480-6 BMI: 28.8 Code : 32579-5 Heart Rate 1 : 94 bpm Height: 6' SpO2: 98% Weight: 212 lbs 01/20/2016 Blood Pressure 1: 120/70 Code : 8480-6 BMI: 29.7 Code : 61596-6 Heart Rate 1 : 87 bpm Height: 6' SpO2: 92% Weight: 219 lbs 01/06/2016 Blood Pressure 1: 122/88 Code : 8480-6 BMI: 28.8 Code : 81250-2 Heart Rate 1 : 83 bpm Height: 6' SpO2: 97% Weight: 212 lbs 12/16/2015 Blood Pressure 1: 98/62 Code : 8480-6 Heart Rate 1: 62 bpm Height: 6' SpO2: 90% Weight: 11/27/2015 Blood Pressure 1: 110/80 Code : 8480-6 Blood Pressure 1: 90/64 Code: 8480-6 Heart Rate 1: 91 bpm Height: 6' SpO2 : 92% Weight: 07/30/2015 Blood Pressure 1: 112/82 Code : 8480-6 BMI: 30.5 Code : 26542-6 Heart Rate 1 : 82 bpm Height: 6' SpO2: 92% Weight: 225 lbs 06/09/2015 Blood Pressure 1: 130/76 Code : 8480-6 BMI: 31.1 Code : 84993-4 Heart Rate 1 : 65 bpm Height: 6' SpO2: 96% Weight: 229 lbs 04/29/2015 Blood Pressure 1: 118/78 Code : 8480-6 BMI: 30.7 Code : 68493-8 Heart Rate 1 : 70 bpm Height: 6' Weight: 226 lbs 02/19/2015 Blood Pressure 1: 118/70 Code : 8480-6 BMI: 29.7 Code : 12247-3 Heart Rate 1 : 68 bpm Height: 6' Weight: 219 lbs Functional Status No Functional Status data History of Present Illness Symptom Name Status Result Effective Date Notes Triggers no known associated factors 12/13/2018 None Exacerbating Factors activity 12/13/2018 None Onset and Resolution ongoing 12/13/2018 None Onset of Symptom months ago 12/13/2018 None Limitation on Activities Denies moderately limits activities 12/13/2018 None Onset and Resolution ongoing 12/13/2018 None Onset of Symptom months ago 12/13/2018 None Quality Denies intermittent 12/13/2018 None Triggers no known associated factors 12/13/2018 None Limitation on Activities moderately limits activities 11/27/2018 None Onset of Symptom _ months ago 11/27/2018 None Frequency of Episodes daily 11/27/2018 None Pertinent Findings dizziness 11/27/2018 at times feels light headed Pertinent Findings lightheadedness 11/27/2018 None Pertinent Findings Denies tachycardia 11/27/2018 None Timing of Episodes no specific time 11/27/2018 None Quality intermittent 09/26/2018 None Onset and Resolution ongoing 09/26/2018 None Onset of Symptom _ months ago 09/26/2018 None Pertinent Findings decreased energy level 09/26/2018 None Pertinent Findings Denies dyspnea 09/26/2018 None Pertinent Findings Denies fever 09/26/2018 None Quality intermittent 09/26/2018 None Onset and Resolution ongoing 09/26/2018 None Onset of Symptom Denies _ months ago 09/26/2018 None Pertinent Findings back pain 09/26/2018 None Pertinent Findings Denies fever 09/26/2018 None Location lumbar-sacral spine 09/26/2018 None Quality constant 08/2018 None Onset and Resolution Denies sudden in onset 09/26/2018 None Onset of Symptom 2 months ago 09/26/2018 None Pertinent Findings Denies extremity numbness 09/26/2018 None Pertinent Findings Denies extremity weakness 09/26/2018 None Pertinent Findings Denies shoulder weakness 09/26/2018 None Pertinent Findings sleep disturbance 09/26/2018 None Annual Medicare Wellness Exam Alcohol Use drinks 1 days per week 08/10/2018 None Annual Medicare Wellness Exam Alcohol Use drinks 1 drinks per day 08/10/2018 None Annual Medicare Wellness Exam Depression (last 6 months) some of the time 08/10/2018 None Annual Medicare Wellness Exam Depression or Hopelessness some of the time 08/10/2018 None Annual Medicare Wellness Exam Describe Your Health fair 08/10/2018 None Annual Medicare Wellness Exam Exercise Habits exercises few days per week 08/10/2018 None Annual Medicare Wellness Exam Interaction with Friends yes 08/10/2018 None Annual Medicare Wellness Exam Social & Emotional Support sometimes 08/10/2018 None Annual Medicare Wellness Exam Smoking and Tobacco Use non smoker 08/10/2018 None Annual Medicare Wellness Exam Aspirin Use no 08/10/2018 None Annual Medicare Wellness Exam Blood Glucose (self reported) desireable (below 100) 08/10/2018 None Annual Medicare Wellness Exam Blood Pressure (self reported ) borderline (120/80 - 139/89) 08/10/2018 None Annual Medicare Wellness Exam Cholesterol (self reported) desireable (below 200) 08/10/2018 None Annual Medicare Wellness Exam Handling Stress often has problems coping 08/10/2018 sometimes Annual Medicare Wellness Exam Hemaglobin A-1C (self reported ) never checked 08/10/2018 None Annual Medicare Wellness Exam Hours of Sleep 8-9 08/10/2018 None Annual Medicare Wellness Exam Interests & Pleasure most of the time 08/10/2018 None Annual Medicare Wellness Exam Life Satisfaction satisfied 08/10/2018 None Annual Medicare Wellness Exam Motor Vehicle Safety always fastens seat belt: y 08/10/2018 None Annual Medicare Wellness Exam Nutrition servings of vegetables / fruit per day: 2-3 08/10/2018 None Annual Medicare Wellness Exam Nutrition servings of high fiber / whole grain per day: 1-2 08/10/2018 None Annual Medicare Wellness Exam Nutrition servings of fried food / high fat foods per day: 1-2 2017 None Annual Medicare Wellness Exam Stress most of the time 08/10/2018 None Annual Medicare Wellness Exam Sun Exposure protects skin when outdoors: n 08/10/2018 None fatigue Onset and Resolution ongoing 07/26/2018 None fatigue Limitation on Activities moderately limits activities 07/26/2018 None fatigue Triggers activity 07/26/2018 None fatigue Triggers exertion 07/26/2018 None fatigue Alleviating Factors rest 07/26/2018 None hypertension Onset and Resolution ongoing 07/26/2018 None hypertension Onset of Symptom during adulthood 07/26/2018 None fatigue Onset and Resolution ongoing 06/12/2018 None fatigue Limitation on Activities moderately limits activities 06/12/2018 None fatigue Triggers activity 06/12/2018 None fatigue Triggers exertion 06/12/2018 None fatigue Alleviating Factors rest 06/12/2018 None Hospital Follow Up _ Other: GI bleed 05/10/2018 None Hospital Follow Up Quality acute illness 05/10/2018 None Hospital Follow Up Quality improving 05/10/2018 None Hospital Follow Up Onset of Symptom 10 days ago 05/10/2018 None Hospital Follow Up Onset and Resolution sudden in onset 05/10/2018 None Hospital Follow Up Pertinent Findings Other: decreased energy 05/10/2018 None hypertension Quality intermittent 03/27/2018 None hypertension Quality primary hypertension 03/27/2018 None hypertension Onset and Resolution ongoing 03/27/2018 None hypertension Onset of Symptom during adulthood 03/27/2018 None hypertension Blood Pressure Values patient checking blood pressure at home - did not bring in readings 03/27/2018 None hypertension Alleviating Factors medication 03/27/2018 None hypertension Pertinent Findings Denies anxiety 03/27/2018 None hypertension Pertinent Findings Denies decreased energy 03/27/2018 None hypertension Pertinent Findings dizziness 03/27/2018 once in a while--if he moves too quickly hypertension Pertinent Findings Denies dyspnea 03/27/2018 None hypertension Pertinent Findings Denies edema 03/27/2018 None fatigue Limitation on Activities moderately limits activities 01/24/2018 None fatigue Onset of Symptom 1 days ago 01/24/2018 None fatigue Frequency of Episodes daily 01/24/2018 None diarrhea Quality acute 01/24/2018 None diarrhea Quality intermittent 01/24/2018 None diarrhea Onset and Resolution gradual in onset 01/24/2018 None diarrhea Onset of Symptom 2-3 years years ago 01/24/2018 None diarrhea Triggers meals 01/24/2018 - he thinks that it is in conjuction with Dr. Mcdonald intake - sinus congestion Location frontal sinuses 12/08/2017 None sinus congestion Quality constant 12/08/2017 None sinus congestion Quality fullness 12/08/2017 None sinus congestion Onset and Resolution sudden in onset 12/08/2017 None sinus congestion Onset of Symptom 1 days ago 12/08/2017 None fever Quality constant 12/08/2017 None fever Onset and Resolution sudden in onset 12/08/2017 None fever Onset of Symptom 1 days ago 12/08/2017 None fatigue Limitation on Activities moderately limits activities 12/08/2017 None fatigue Onset of Symptom 1 days ago 12/08/2017 None fatigue Frequency of Episodes daily 12/08/2017 None hypertension Quality intermittent 10/27/2017 None hypertension Quality primary hypertension 10/27/2017 None hypertension Onset and Resolution ongoing 10/27/2017 None hypertension Onset of Symptom during adulthood 10/27/2017 None hypertension Blood Pressure Values patient checking blood pressure at home - did not bring in readings 10/27/2017 None hypertension Alleviating Factors medication 10/27/2017 None hypertension Pertinent Findings Denies anxiety 10/27/2017 None hypertension Pertinent Findings Denies decreased energy 10/27/2017 None hypertension Pertinent Findings dizziness 10/27/2017 once in a while--if he moves too quickly hypertension Pertinent Findings Denies dyspnea 10/27/2017 None hypertension Pertinent Findings Denies edema 10/27/2017 None urinary retention/hesitancy Quality chronic 10/27/2017 None urinary retention/hesitancy Quality intermittent 10/27/2017 None urinary retention/hesitancy Onset and Resolution ongoing 10/27/2017 None urinary retention/hesitancy Frequency of Episodes daily 10/27/2017 None urinary retention/hesitancy Alleviating Factors medication 10/27/2017 None urinary retention/hesitancy Pertinent Findings nocturia 10/27/2017 None dysphagia Location in the throat 10/27/2017 None dysphagia Quality intermittent 10/27/2017 None dysphagia Onset and Resolution ongoing 10/27/2017 None dysphagia Onset of Symptom 6 months ago 10/27/2017 None dysphagia Alleviating Factors drinking 10/27/2017 None dysphagia Exacerbating Factors eating 10/27/2017 None hypertension Quality intermittent 09/29/2017 None hypertension Quality primary hypertension 09/29/2017 None hypertension Onset and Resolution ongoing 09/29/2017 None hypertension Onset of Symptom during adulthood 09/29/2017 None hypertension Blood Pressure Values patient checking blood pressure at home - did not bring in readings 09/29/2017 None hypertension Alleviating Factors medication 09/29/2017 None hypertension Pertinent Findings dizziness 09/29/2017 once in a while--if he moves too quickly hypertension Pertinent Findings Denies dyspnea 09/29/2017 None urinary retention/hesitancy Quality chronic 09/29/2017 None urinary retention/hesitancy Quality intermittent 09/29/2017 None urinary retention/hesitancy Onset and Resolution ongoing 09/29/2017 None urinary retention/hesitancy Frequency of Episodes daily 09/29/2017 None urinary retention/hesitancy Alleviating Factors medication 09/29/2017 None urinary retention/hesitancy Pertinent Findings nocturia 09/29/2017 None dysphagia Location in the throat 09/29/2017 None dysphagia Quality intermittent 09/29/2017 None dysphagia Onset and Resolution ongoing 09/29/2017 None dysphagia Onset of Symptom 6 months ago 09/29/2017 None dysphagia Alleviating Factors drinking 09/29/2017 None dysphagia Exacerbating Factors eating 09/29/2017 None hypertension Pertinent Findings Denies edema 09/29/2017 None hypertension Pertinent Findings Denies decreased energy 09/29/2017 None hypertension Pertinent Findings Denies anxiety 09/29/2017 None hypertension Quality intermittent 09/01/2017 None hypertension Onset and Resolution ongoing 09/01/2017 None hypertension Blood Pressure Values patient checking blood pressure at home - did not bring in readings 09/01/2017 None hypertension Alleviating Factors medication 09/01/2017 None hypertension Pertinent Findings dizziness 09/01/2017 once in a while--if he moves too quickly hypertension Pertinent Findings Denies dyspnea 09/01/2017 None hypertension Quality primary hypertension 09/01/2017 None hypertension Onset of Symptom during adulthood 09/01/2017 None sinus congestion Quality acute 09/01/2017 None sinus congestion Onset and Resolution sudden in onset 09/01/2017 None sinus congestion Onset of Symptom 1 weeks ago 09/01/2017 None sinus congestion Frequency of Episodes daily 09/01/2017 None sinus congestion Pertinent Findings Denies fever 09/01/2017 None sinus congestion Pertinent Findings cough 09/01/2017 None urinary retention/hesitancy Quality chronic 09/01/2017 None urinary retention/hesitancy Onset and Resolution ongoing 09/01/2017 None urinary retention/hesitancy Quality intermittent 09/01/2017 None urinary retention/hesitancy Alleviating Factors medication 09/01/2017 None urinary retention/hesitancy Pertinent Findings nocturia 09/01/2017 None urinary retention/hesitancy Frequency of Episodes daily 09/01/2017 None dysphagia Onset and Resolution ongoing 09/01/2017 None dysphagia Location in the throat 09/01/2017 None dysphagia Quality intermittent 09/01/2017 None dysphagia Onset of Symptom 6 months ago 09/01/2017 None dysphagia Exacerbating Factors eating 09/01/2017 None dysphagia Alleviating Factors drinking 09/01/2017 None Annual Medicare Wellness Exam Alcohol Use drinks 1 days per week 08/03/2017 None Annual Medicare Wellness Exam Aspirin Use yes 08/03/2017 None Annual Medicare Wellness Exam Blood Glucose (self reported) don't know 08/03/2017 None Annual Medicare Wellness Exam Blood Pressure (self reported ) low / normal (120/80) 08/03/2017 None Annual Medicare Wellness Exam Cholesterol (self reported) desireable (below 200) 08/03/2017 None Annual Medicare Wellness Exam Depression (last 6 months) most of the time 08/03/2017 None Annual Medicare Wellness Exam Depression or Hopelessness most of the time 08/03/2017 None Annual Medicare Wellness Exam Describe Your Health good 08/03/2017 None Annual Medicare Wellness Exam Exercise Habits does not exercise 08/03/2017 None Annual Medicare Wellness Exam Handling Stress usually eusebio effectively 08/03/2017 None Annual Medicare Wellness Exam Hemaglobin A-1C (self reported ) don't know 08/03/2017 None Annual Medicare Wellness Exam Hours of Sleep 8 08/03/2017 None Annual Medicare Wellness Exam Interaction with Friends yes 08/03/2017 None Annual Medicare Wellness Exam Interests & Pleasure daily 08/03/2017 None Annual Medicare Wellness Exam Life Satisfaction very satisfied 08/03/2017 None Annual Medicare Wellness Exam Motor Vehicle Safety always fastens seat belt: y 08/03/2017 None Annual Medicare Wellness Exam Motor Vehicle Safety drives after drinking: n 08/03/2017 None Annual Medicare Wellness Exam Motor Vehicle Safety rides with someone who has been drinking: n 2016 None Annual Medicare Wellness Exam Nutrition servings of fried food / high fat foods per day: 2 2016 None Annual Medicare Wellness Exam Nutrition servings of high fiber / whole grain per day: 2 08/03/2017 None Annual Medicare Wellness Exam Nutrition servings of vegetables / fruit per day: 6 08/03/2017 None Annual Medicare Wellness Exam Smoking and Tobacco Use non smoker 08/03/2017 None Annual Medicare Wellness Exam Social & Emotional Support always 08/03/2017 None Annual Medicare Wellness Exam Stress some of the time 08/03/2017 None Annual Medicare Wellness Exam Sun Exposure protects skin when outdoors: n 08/03/2017 None hypertension Quality intermittent 04/26/2017 None hypertension Onset and Resolution ongoing 04/26/2017 None hypertension Blood Pressure Values patient checking blood pressure at home - did not bring in readings 04/26/2017 he states that his diastolic at home has been as high as 92, but usually in the 80's.he thinks that his systolic has gone up to 150's, but usually comes down to the 130's hypertension Frequency of Episodes daily 04/26/2017 None hypertension Alleviating Factors medication 04/26/2017 None hypertension Pertinent Findings anxiety 04/26/2017 None hypertension Pertinent Findings Denies dizziness 04/26/2017 None hypertension Pertinent Findings Denies dyspnea 04/26/2017 None back pain Location lumbar-sacral spine 04/26/2017 None back pain Limitation on Activities does not limit activities 04/26/2017 None back pain Onset of Symptom 2-3 weeks ago 04/26/2017 None back pain Pertinent Findings Denies extremity numbness 04/26/2017 None back pain Pertinent Findings Denies extremity weakness 04/26/2017 None back pain Pertinent Findings Denies sleep disturbance 04/26/2017 None earache Location both ears 01/25/2017 None hypertension Quality intermittent 01/25/2017 None hypertension Onset and Resolution ongoing 01/25/2017 None hypertension Blood Pressure Values patient checking blood pressure at home - did not bring in readings 01/25/2017 he states that his diastolic at home has been as high as 92, but usually in the 80's.he thinks that his systolic has gone up to 150's, but usually comes down to the 130's hypertension Frequency of Episodes daily 01/25/2017 None hypertension Alleviating Factors medication 01/25/2017 None hypertension Pertinent Findings anxiety 01/25/2017 None hypertension Pertinent Findings Denies dizziness 01/25/2017 None hypertension Pertinent Findings Denies dyspnea 01/25/2017 None hypertension Quality intermittent 10/26/2016 None hypertension Onset and Resolution ongoing 10/26/2016 None hypertension Blood Pressure Values patient checking blood pressure at home - did not bring in readings 10/26/2016 he states that his diastolic at home has been as high as 92, but usually in the 80's.he thinks that his systolic has gone up to 150's, but usually comes down to the 130's hypertension Frequency of Episodes daily 10/26/2016 None hypertension Alleviating Factors medication 10/26/2016 None hypertension Pertinent Findings anxiety 10/26/2016 None hypertension Pertinent Findings Denies dizziness 10/26/2016 None hypertension Pertinent Findings Denies dyspnea 10/26/2016 None earache Location both ears 10/26/2016 None hypertension Quality intermittent 09/27/2016 None hypertension Onset and Resolution ongoing 09/27/2016 None hypertension Blood Pressure Values patient checking blood pressure at home - did not bring in readings 09/27/2016 None hypertension Alleviating Factors medication 09/27/2016 None hypertension Pertinent Findings dizziness 09/27/2016 (occasional) hypertension Pertinent Findings Denies dyspnea 09/27/2016 None hypertension Pertinent Findings Denies edema 09/27/2016 None nocturia Quality intermittent 09/27/2016 None nocturia Onset and Resolution ongoing 09/27/2016 None nocturia Onset of Symptom 5-6 months ago 09/27/2016 None nocturia Frequency of Episodes 3-4 times a night 09/27/2016 None gait abnormality Quality intermittent 09/27/2016 None gait abnormality Quality unsteady 09/27/2016 None gait abnormality Onset and Resolution ongoing 09/27/2016 None gait abnormality Onset of Symptom 3-4+ months ago 09/27/2016 None gait abnormality Frequency of Episodes increasing 09/27/2016 None hypertension Quality intermittent 06/28/2016 None hypertension Onset and Resolution ongoing 06/28/2016 None hypertension Blood Pressure Values patient checking blood pressure at home - did not bring in readings 06/28/2016 None hypertension Frequency of Episodes daily 06/28/2016 None hypertension Alleviating Factors medication 06/28/2016 None hypertension Pertinent Findings anxiety 06/28/2016 None hypertension Pertinent Findings Denies dyspnea 06/28/2016 None hypertension Pertinent Findings Denies dizziness 06/28/2016 None fatigue Onset of Symptom months ago 04/27/2016 None fatigue Pertinent Findings Denies back pain 04/27/2016 None fatigue Pertinent Findings depressed mood 04/27/2016 None depression Quality chronic 04/27/2016 None depression Onset and Resolution improved during the day 04/27/2016 None depression Onset and Resolution ongoing 04/27/2016 None depression Limitation on Activities moderately limits activities 04/27/2016 None depression Frequency of Episodes decreasing 04/27/2016 None depression Triggers stress 04/27/2016 None depression Alleviating Factors medication 04/27/2016 in the past depression Pertinent Findings Denies anxiety 04/27/2016 None depression Pertinent Findings depressed mood 04/27/2016 None depression Pertinent Findings Denies helplessness 04/27/2016 None depression Pertinent Findings Denies hopelessness 04/27/2016 None hypertension Onset and Resolution ongoing 04/27/2016 None hypertension Onset of Symptom during adulthood 04/27/2016 None hypertension Blood Pressure Values patient checking blood pressure at home - did not bring in readings 04/27/2016 None hypertension Pertinent Findings Denies dyspnea 04/27/2016 None hypertension Pertinent Findings dizziness 04/27/2016 -about 1-2 times per week hypertension Pertinent Findings decreased energy 04/27/2016 None fatigue Quality improving 04/27/2016 None fatigue Frequency of Episodes decreasing 04/27/2016 None foot pain Location on the left 02/17/2016 None foot pain Quality dull pain 02/17/2016 None foot pain Quality worsening 02/17/2016 None foot pain Frequency of Episodes daily 02/17/2016 None foot pain Pertinent Findings Denies redness 02/17/2016 None foot pain Pertinent Findings Denies stiffness 02/17/2016 None foot pain Pertinent Findings Denies swelling 02/17/2016 None fatigue Frequency of Episodes daily 02/17/2016 None depression Onset and Resolution ongoing 02/17/2016 None depression Limitation on Activities moderately limits activities 02/17/2016 None depression Triggers stress 02/17/2016 None depression Alleviating Factors medication 02/17/2016 in the past foot pain Onset of Symptom 6 weeks ago 02/17/2016 None fatigue Onset of Symptom _ months ago 02/17/2016 None fatigue Pertinent Findings Denies back pain 02/17/2016 None fatigue Pertinent Findings depressed mood 02/17/2016 None fatigue Pertinent Findings dizziness 02/17/2016 unsteady on feet depression Quality chronic 02/17/2016 None depression Onset and Resolution improved during the day 02/17/2016 None depression Frequency of Episodes decreasing 02/17/2016 None depression Pertinent Findings Denies anxiety 02/17/2016 None depression Pertinent Findings depressed mood 02/17/2016 None depression Pertinent Findings Denies helplessness 02/17/2016 None depression Pertinent Findings Denies hopelessness 02/17/2016 None foot pain Location on the left 01/20/2016 None foot pain Quality dull pain 01/20/2016 None foot pain Quality worsening 01/20/2016 None foot pain Onset of Symptom 2 weeks ago 01/20/2016 None foot pain Frequency of Episodes daily 01/20/2016 None foot pain Pertinent Findings redness 01/20/2016 None foot pain Pertinent Findings stiffness 01/20/2016 None foot pain Pertinent Findings swelling 01/20/2016 None fatigue Frequency of Episodes daily 01/20/2016 None depression Quality chronic 01/20/2016 None depression Quality acute 01/20/2016 None depression Onset and Resolution ongoing 01/20/2016 None depression Frequency of Episodes increasing 01/20/2016 None depression Limitation on Activities moderately limits activities 01/20/2016 None depression Triggers stress 01/20/2016 None depression Alleviating Factors medication 01/20/2016 in the past foot pain Location on the left 01/06/2016 None foot pain Quality dull pain 01/06/2016 None foot pain Quality worsening 01/06/2016 None foot pain Onset of Symptom 2 weeks ago 01/06/2016 None foot pain Frequency of Episodes daily 01/06/2016 None foot pain Pertinent Findings redness 01/06/2016 None foot pain Pertinent Findings stiffness 01/06/2016 None fatigue Frequency of Episodes daily 01/06/2016 None foot pain Pertinent Findings swelling 01/06/2016 None skin lesion Quality mobile 01/06/2016 None skin lesion Location left arm 01/06/2016 by his elbow- movable nodule he wants removed foot pain Location on the left 12/16/2015 None foot pain Quality dull pain 12/16/2015 None foot pain Quality worsening 12/16/2015 None foot pain Onset of Symptom 2 weeks ago 12/16/2015 None foot pain Frequency of Episodes daily 12/16/2015 None foot pain Pertinent Findings redness 12/16/2015 None foot pain Pertinent Findings stiffness 12/16/2015 None fatigue Frequency of Episodes daily 12/16/2015 None Hospital Follow Up _ cardiac disease 11/27/2015 None Hospital Follow Up _ blood clots 11/27/2015 None Hospital Follow Up Onset of Symptom 10 days ago 11/27/2015 None Hospital Follow Up Quality acute 11/27/2015 None Hospital Follow Up Severity severe 11/27/2015 None Hospital Follow Up Pertinent Findings pain 11/27/2015 None Hospital Follow Up Pertinent Findings medication use 11/27/2015 None hypertension Onset and Resolution ongoing 07/30/2015 None hypertension Quality stable 07/30/2015 None hypertension Blood Pressure Values patient checking blood pressure at home - did not bring in readings 07/30/2015 None hypertension Pertinent Findings Denies dizziness 07/30/2015 None hypertension Pertinent Findings Denies dyspnea 07/30/2015 None hypertension Pertinent Findings Denies edema 07/30/2015 None gastroesophageal reflux Quality improving 07/30/2015 Nexium is helping gastroesophageal reflux Onset and Resolution ongoing 07/30/2015 None gastroesophageal reflux Pertinent Findings Denies heartburn 07/30/2015 None gastroesophageal reflux Onset of Symptom during adulthood 07/30/2015 None hypertension Onset of Symptom during adulthood 07/30/2015 None hypertension Severity mild 07/30/2015 None hypertension Quality stable 06/09/2015 None hypertension Onset and Resolution ongoing 06/09/2015 None hypertension Blood Pressure Values patient checking blood pressure at home - did not bring in readings 06/09/2015 None hypertension Pertinent Findings Denies dizziness 06/09/2015 None hypertension Pertinent Findings Denies dyspnea 06/09/2015 None hypertension Pertinent Findings Denies edema 06/09/2015 None gastroesophageal reflux Quality improving 06/09/2015 Nexium is helping gastroesophageal reflux Onset and Resolution ongoing 06/09/2015 None gastroesophageal reflux Pertinent Findings Denies heartburn 06/09/2015 None increased abdominal girth Quality constant 06/09/2015 None increased abdominal girth Onset and Resolution ongoing 06/09/2015 None increased abdominal girth Onset of Symptom 2 months ago 06/09/2015 None increased abdominal girth Pertinent Findings abdominal distension 06/09/2015 None urinary retention/hesitancy Quality intermittent 04/29/2015 None urinary retention/hesitancy Onset of Symptom _ months ago 04/29/2015 None urinary retention/hesitancy Pertinent Findings Denies back pain 04/29/2015 None urinary retention/hesitancy Pertinent Findings Denies bladder pain 04/29/2015 None urinary retention/hesitancy Pertinent Findings Denies fever 04/29/2015 None urinary retention/hesitancy Pertinent Findings nocturia 04/29/2015 None urinary retention/hesitancy Pertinent Findings Denies urinary urgency 04/29/2015 None urinary frequency Quality constant 04/29/2015 None urinary frequency Onset of Symptom 1 months ago 04/29/2015 None urinary frequency Pertinent Findings Denies back pain 04/29/2015 None urinary frequency Pertinent Findings Denies bladder pain 04/29/2015 None urinary frequency Pertinent Findings Denies urinary urgency 04/29/2015 None hypertension Quality stable 04/29/2015 None hypertension Onset and Resolution ongoing 04/29/2015 None hypertension Blood Pressure Values patient checking blood pressure at home - did not bring in readings 04/29/2015 None hypertension Pertinent Findings Denies dizziness 04/29/2015 None hypertension Pertinent Findings Denies dyspnea 04/29/2015 None hypertension Pertinent Findings Denies edema 04/29/2015 None gastroesophageal reflux Quality heartburn 04/29/2015 None gastroesophageal reflux Onset and Resolution ongoing 04/29/2015 None gastroesophageal reflux Quality improving 04/29/2015 None gastroesophageal reflux Pertinent Findings Denies heartburn 04/29/2015 None cyst Quality non-tender 04/29/2015 None cyst Onset and Resolution gradual in onset 04/29/2015 None cyst Location on the right arm 04/29/2015 None urinary retention/hesitancy Quality intermittent 02/19/2015 None urinary retention/hesitancy Onset of Symptom _ months ago 02/19/2015 None urinary retention/hesitancy Pertinent Findings Denies back pain 02/19/2015 None urinary retention/hesitancy Pertinent Findings Denies bladder pain 02/19/2015 None urinary retention/hesitancy Pertinent Findings Denies fever 02/19/2015 None urinary retention/hesitancy Pertinent Findings nocturia 02/19/2015 None urinary retention/hesitancy Pertinent Findings Denies urinary urgency 02/19/2015 None urinary frequency Quality constant 02/19/2015 None urinary frequency Onset of Symptom 1 months ago 02/19/2015 None urinary frequency Pertinent Findings Denies back pain 02/19/2015 None urinary frequency Pertinent Findings Denies bladder pain 02/19/2015 None urinary frequency Pertinent Findings Denies urinary urgency 02/19/2015 None hypertension Quality stable 02/19/2015 None hypertension Onset and Resolution ongoing 02/19/2015 None hypertension Blood Pressure Values patient checking blood pressure at home - did not bring in readings 02/19/2015 None hypertension Pertinent Findings Denies dyspnea 02/19/2015 None hypertension Pertinent Findings Denies dizziness 02/19/2015 None hypertension Pertinent Findings Denies edema 02/19/2015 None Advance Directives No Advance Directive data Encounters Encounter Performer Location Codes ([id number]) [id number] EST. PATIENT, LEVEL IV Diagnosis: Shortness of breath[ICD10: R06.02] Diagnosis: Other fatigue[ICD10: R53.83] Diagnosis: Obstructive sleep apnea (adult) (pediatric)[ICD10: G47.33] Diagnosis: Other malaise[ICD10: R53.81] Lesley Butcher MD, [facility] CPT- 4: 77704 12/13/2018 ([id number]) 91446 EST. PATIENT, LEVEL IV Diagnosis: Shortness of breath[ICD10: R06.02] Diagnosis: Dizziness and giddiness[ICD10: R42] Diagnosis: Other fatigue[ICD10: R53.83] Diagnosis: Essential (primary) hypertension[ICD10: I10] Diagnosis: Muscle weakness (generalized)[ICD10: M62.81] Merline Butcher MD, [facility] CPT-4: 66027 11/27/2018 ([id number]) [id number] EST. PATIENT, LEVEL IV Diagnosis: Essential (primary) hypertension[ICD10: I10] Diagnosis: Vertigo of central origin, right ear[ICD10: H81.41] Diagnosis: Low back pain[ICD10: M54.5] Lesley Butcher MD, [facility] CPT- 4: 30649 09/26/2018 ([id number]) [id number] EST. PATIENT, LEVEL III Diagnosis: Dizziness and giddiness[ICD10: R42] Diagnosis: Vertigo of central origin, right ear[ICD10: H81.41] Diagnosis: Essential (primary) hypertension[ICD10: I10] Lesley Butcher MD, [facility] CPT-4: 50132 07/26/2018 ([id number]) 83979 EST. PATIENT, LEVEL III Diagnosis: Essential (primary) hypertension[ICD10: I10] Lesley Butcher MD, [facility] CPT-4: 68084 06/12/2018 ([id number]) 97947 EST. PATIENT, LEVEL IV Diagnosis: Other iron deficiency anemias[ICD10: D50.8] Diagnosis: Weakness[ICD10: R53.1] Diagnosis: Diverticulosis of large intestine without perforation or abscess with bleeding[ICD10: K57.31] Lesley Butcher MD, [facility] CPT-4: 67572 05/10/2018 ([id number]) 31484 EST. PATIENT, LEVEL IV Diagnosis: Essential (primary) hypertension[ICD10: I10] Diagnosis: Major depressive disorder, recurrent, mild[ICD10: F33.0] Diagnosis: Sensorineural hearing loss, bilateral[ICD10: H90.3] Lesley Butcher MD, [facility] CPT-4: 56838 03/27/2018 ([id number]) Miscellaneous no charge Diagnosis: Essential (primary) hypertension[ICD10: I10] Mady Butcher MD, [facility] CPT-4: 03057 01/25/2018 ([id number]) 77232 EST. PATIENT, LEVEL IV Diagnosis: Essential (primary) hypertension[ICD10: I10] Diagnosis: Sensorineural hearing loss, bilateral[ICD10: H90.3] Diagnosis: Mixed hyperlipidemia[ICD10: E78.2] Diagnosis: Major depressive disorder, recurrent, mild[ICD10: F33.0] Lesley Butcher MD, [facility] CPT-4: 90674 01/24/2018 02999 EST. PATIENT, LEVEL IV Diagnosis: Other malaise[ICD10: R53.81] Diagnosis: Fever, unspecified[ICD10: R50.9] Mady Butcher MD, [facility] CPT- 4: 23911 12/08/2017 ([id number]) 55837 EST. PATIENT, LEVEL III Diagnosis: Essential (primary) hypertension[ICD10: I10] Lesley Butcher MD, [facility] CPT-4: 66899 10/27/2017 ([id number]) 14081 EST. PATIENT, LEVEL III Diagnosis: Benign prostatic hyperplasia with lower urinary tract symptoms[ICD10 : N40.1] Diagnosis: Dysphagia, pharyngeal phase[ICD10: R13.13] Lesley Butcher MD, [facility] CPT-4: 83503 09/29/2017 ([id number]) 98579 EST. PATIENT, LEVEL IV Diagnosis: Essential (primary) hypertension[ICD10: I10] Diagnosis: Major depressive disorder, recurrent, mild[ICD10: F33.0] Diagnosis: Sensorineural hearing loss, bilateral[ICD10: H90.3] Lesley Butcher MD, [facility] CPT-4: 33454 09/01/2017 ([id number]) 31677 EST. PATIENT, LEVEL IV Diagnosis: Essential (primary) hypertension[ICD10: I10] Diagnosis: Major depressive disorder, recurrent, mild[ICD10: F33.0] Diagnosis: Mixed hyperlipidemia[ICD10: E78.2] Lesley Butcher MD, [facility] CPT-4: 99152 04/26/2017 [id number] EST. PATIENT, LEVEL IV Diagnosis: Essential (primary) hypertension[ICD10: I10] Diagnosis: Major depressive disorder, recurrent, mild[ICD10: F33.0] Diagnosis: Urge incontinence[ICD10: N39.41] Lesley Butcehr MD, [facility] CPT-4: 02193 01/25/2017 [id number]) [id number] EST. PATIENT, LEVEL IV Diagnosis: Essential (primary) hypertension[ICD10: I10] Diagnosis: Major depressive disorder, recurrent, mild[ICD10: F33.0] Diagnosis: Urge incontinence[ICD10: N39.41] Lesley Butcher MD, [facility] CPT-4: 46067 10/26/2016 ([id number]) 51038 EST. PATIENT, LEVEL III Diagnosis: Essential (primary) hypertension[ICD10: I10] Diagnosis: Major depressive disorder, recurrent, mild[ICD10: F33.0] Diagnosis: Urge incontinence[ICD10: N39.41] Lesley Butcher MD, [facility] CPT-4: 38255 09/27/2016 [id number]) [id number] EST. PATIENT, LEVEL IV Diagnosis: Essential (primary) hypertension[ICD10: I10] Diagnosis: Encounter for immunization[ICD10: Z23] Diagnosis: Laceration without foreign body of left forearm, initial encounter[ ICD10: S51.812A] Diagnosis: Laceration without foreign body of right forearm, initial encounter[ ICD10: S51.811A] Diagnosis: Major depressive disorder, recurrent, mild[ICD10: F33.0] Lesley Bucther MD, [facility] CPT-4: 80763 06/28/2016 [id number]) [phone] EST. 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 PATIENT, LEVEL IV Diagnosis: Weakness[ICD10: R53.1] Diagnosis: Gout, unspecified[ICD10: M10.9] Diagnosis: Hypotension, unspecified[ICD10: I95.9] Lesley Butcher MD, [facility] CPT-4: 94859 12/16/2015 ([id number]) Patient admitted to the hospital from clinic (NO CHARGE) Diagnosis: Hypoxemia[ICD10: R09.02] Diagnosis: Weakness[ICD10: R53.1] Diagnosis: Dyspnea, unspecified[ICD10: R06.00] Mady Butcher MD, [facility] CPT-4: 57536B 11/27/2015 ([id number]) [id number] EST. PATIENT, LEVEL III Diagnosis: Essential (primary) hypertension[ICD10: I10] Diagnosis: Gastro-esophageal reflux disease without esophagitis[ICD10: K21.9] Lesley Butcher MD, [facility] CPT-4: 55611 07/30/2015 ([id number]) 16218 EST. PATIENT, LEVEL III Diagnosis: ESSENTIAL HYPERTENSION[ICD9: 401.9] [facility] CPT-4: 38005 06/09/2015 ([id number]) 55215 EST. PATIENT, LEVEL III Diagnosis: ESSENTIAL HYPERTENSION[ICD9: 401.9] [facility] CPT-4: 05138 04/29/2015 ([id number]) OFFICE/OUTPATIENT VISIT NEW Diagnosis: ESSENTIAL HYPERTENSION[ICD9: 401.9] Diagnosis: DEPRESSIVE DISORDER NEC[ICD9: 311] Diagnosis: Enlarged prostate[ICD9: 600.00] Diagnosis: Nasal inflammation due to allergen[ICD9: 477.9] [facility] CPT-4: 47927 02/19/2015 Plan of Care Planned Activity Notes Codes Status Date Visit Plan: Shortness of breath - Hx of sleep apnea - will need to get pt an overnight oxygen study - we will call [facility] to set him up for an overnight oxygen. Fatigue/malaise - discussed with pt and his daughter and his . I have recommended that the patient have the oxygen study - we will get him set up to see Dr. Panda to evaluate his CPAP to see if it is effective for his sleep apnea. Ambulatory oxygen was negative - his heart rate got up to 105, oxygen stayed at 96% 12/13/2018 Patient Education: Patient Medication Summary Completed 12/13/2018 Visit Plan: [id number] of breath -patient reports worsening of chronic symptoms -will check EKG and cardiac enzymes to evaluate for acute changes -recommend patient follow up with his quality control specialist, Dr Stokes -patient, and daughter verbalized understanding of plan. Generalized weakness-discussed PT referral after cleared by cardiology -patient' s will call us when she wants to have it set up HTN-no change but monitor at home 11/27/2018 Appointment: Merline Rose WPtel: [address] [place], [place] [id number] (15 min) Moderate 11/27/2018 Patient Education: Patient Medication Summary Completed 11/27/2018 Visit Plan: Hypertension - well controlled - continue with current medications, continue with no added salt diet. Pt has been encouraged to exercise daily. The pt has been advised to call the office if there are any acute concerns about change in blood pressure readings at home. Vertigo - improved - continue with current regimen. Low back pain - keep appt with Dr. Montero - denisse to hold plavix for 72 hours prior to planned back injection. Skin lesion left lower lip - discussed with patient he needs this lesion biopsied since it has not healed after the last two cryotherapy sessions. 09/26/2018 Appointment: Lesley Butcher [facility]Ptel[id number] (15 min) Moderate 09/26/2018 Patient Education: Patient Medication Summary Completed 09/26/2018 Patient Education: Hypertension Completed 09/26/2018 Patient Education: Back Pain Completed 09/26/2018 Visit Plan: Medicare Exam - today we discussed the patients past history, immunizations, preventative exams/evaluations - colonoscopy, fecal occult blood testing, routine labs for renal function, glucose, cholesterol, osteoporosis evaluations, cardiovascular testing and cancer screenings. We have also discussed mental health and the signs/symptoms of depression. The patient was advised of home safety evaluations and the need to make sure that as the aging process continues, we need to be aware of different ways to make the home a safer place to reside. The patient has also been counseled that exercise is necessary - and of utmost importance as we age to help decrease fall risk and to maintain independece in the home. Today we discussed the need for the patient to create paperwork for Advanced directives as well as for the patient to provide this office with a copy of her DOPA paperwork for health care surrogate. 08/10/2018 Appointment: M[facility] Dunne [facility]el[facility] [address] [facility] [facility] - Annual Wellness Visit 08/10/2018 Patient Education: Patient Medication Summary Completed 08/10/2018 Visit Plan: Vertigo - vestibular/cochlearVestibular therapy with Allan Ingram. Hypertension - well controlled - continue with current medications, continue with no added salt diet. Pt has been encouraged to exercise daily. The pt has been advised to call the office if there are any acute concerns about change in blood pressure readings at home. 07/26/2018 Appointment: Lesley Butcher WPtel: [id number] (15 min) Moderate 07/26/2018 Patient Education: Patient Medication Summary Completed 07/26/2018 Appointment: Injection 07/05/2018 Patient Education: Patient Medication Summary Completed 07/05/2018 Visit Plan: Hypertension - well controlled - continue with current medications, continue with no added salt diet. Pt has been encouraged to exercise daily. The pt has been advised to call the office if there are any acute concerns about change in blood pressure readings at home. Generalized weakness - Adrenal insufficiency - kenalog shot today and recommendation for pt to restart his dexamethasone. 06/12/2018 Appointment: Lesley Butcher WPtel: [address] [facility] (15 min) Moderate 06/12/2018 Patient Education: Patient Medication Summary Completed 06/12/2018 Visit Plan: Diverticulosis with recent GI bleeding - improved - continue with supportive care, avoid foods which cause any abdominal pain - monitor symptoms - call if any pain or bleeding recurs. Anemia - check labs today. Weakness - continue with increasing of activity. 05/10/2018 Appointment: Lesley Butcher WPtel: [address] [facility] (30 min) Complex 05/10/2018 Patient Education: Patient Medication Summary Completed 05/10/2018 Visit Plan: Hypertension - well controlled - continue with current medications, continue with no added salt diet. Pt has been encouraged to exercise daily. The pt has been advised to call the office if there are any acute concerns about change in blood pressure readings at home. Chronic Depression and anxiety - the pt has symptoms of chronic anxiety and depression that have been fairly well controlled since the last office visit. The pt has expected periods of exacerbation with abatement of the symptoms with change in situational exposure. No change in current medications. Hearing loss - improved with cochlear implant. 03/27/2018 Appointment: Lesley Butcher WPtel: [address] [facility] [place] (15 min) Moderate 03/27/2018 Patient Education: Patient Medication Summary Completed 03/27/2018 Appointment: Nurse Visit 01/25/2018 Patient Education: Patient Medication Summary Completed 01/25/2018 Visit Plan: Hypertension - well controlled - continue with current medications, continue with no added salt diet. Pt has been encouraged to exercise daily. The pt has been advised to call the office if there are any acute concerns about change in blood pressure readings at home. Chronic Depression and anxiety - the pt has symptoms of chronic anxiety and depression that have been fairly well controlled since the last office visit. The pt has expected periods of exacerbation with abatement of the symptoms with change in situational exposure. No change in current medications. Hearing loss -keep appt at for cochlear implant. Hyperlipidemia - pt has been counseled about appropriate diet, exercise, and need for low fat food choices. I have discussed the need for the patient to take medications as prescribed. If the patient has negative side effects from the medication, they are to CALL the office and not abruptly discontinue the medication without discussion with a practitioner in the office. We will check labs in 3-6 months for follow up on the patient's chronic medical problem and to assure normal liver response to medications. 01/24/2018 Appointment: Lesley Butcher WPtel: [facility] (15 min) Moderate 01/24/2018 Patient Education: Patient Medication Summary Completed 01/24/2018 Visit Plan: Influenza - pt started on tamiflu - pt to start on anti-inflammatories, tylenol and monitor symptoms. Pt to call if not improving. Pt to alert any close contacts as to illness. 12/08/2017 Appointment: Mady Dunne WPtel: [facility] (30 min) Complex 12/08/2017 Patient Education: Patient Medication Summary Completed 12/08/2017 Visit Plan: Hypertension - well controlled - continue with current medications, continue with no added salt diet. Pt has been encouraged to exercise daily. The pt has been advised to call the office if there are any acute concerns about change in blood pressure readings at home. 10/27/2017 Appointment: Lesley Butcher WPtel: [facility] (15 min) Moderate 10/27/2017 Patient Education: Patient Medication Summary Completed 10/27/2017 Referral: External, Ordering Provider Referral Initiated 10/12/2017 Visit Plan: BPH - continue with dutasteride and flomax Dysphagia - referral to Dr. Kumar for EGD - question stricture - dysphagia intermittently - hx of stricture. 09/29/2017 Appointment: Lesley Butcher WPtel: [facility]5 [facility] (15 min) Moderate 09/29/2017 Patient Education: Patient Medication Summary Completed 09/29/2017 Care Plan: Referral Order SNOMED-CT : [id number] Pending 09/29/2017 Visit Plan: Hypertension - well controlled - continue with current medications, continue with no added salt diet. Pt has been encouraged to exercise daily. The pt has been advised to call the office if there are any acute concerns about change in blood pressure readings at home. Chronic Depression and anxiety - the pt has symptoms of chronic anxiety and depression that have been fairly well controlled since the last office visit. The pt has expected periods of exacerbation with abatement of the symptoms with change in situational exposure. No change in current medications. Hearing loss - recommended patient to have an evaluation at [facility] to see if he has potential for cochlear implant. 09/01/2017 Appointment: Lesley Butcher WPtel: [facility] (15 min) Moderate 09/01/2017 Patient Education: Patient Medication Summary Completed 09/01/2017 Care Plan: Referral Order SNOMED-CT : [id number] Pending 09/01/2017 Visit Plan: Medicare Exam - today we discussed the patients past history, immunizations, preventative exams/evaluations - colonoscopy, fecal occult blood testing, routine labs for renal function, glucose, cholesterol, osteoporosis evaluations, cardiovascular testing and cancer screenings. We have also discussed mental health and the signs/symptoms of depression. The patient was advised of home safety evaluations and the need to make sure that as the aging process continues, we need to be aware of different ways to make the home a safer place to reside. The patient has also been counseled that exercise is necessary - and of utmost importance as we age to help decrease fall risk and to maintain independece in the home. Today we discussed the need for the patient to create paperwork for Advanced directives as well as for the patient to provide this office with a copy of her DOPA paperwork for health care surrogate. 08/03/2017 Appointment: Mady Dunne WPtel: [facility] [facility] - Welcome to Medicare visit 08/03/2017 Patient Education: Patient Medication Summary Completed 08/03/2017 Visit Plan: Hypertension - well controlled - continue with current medications, continue with no added salt diet. Pt has been encouraged to exercise daily. The pt has been advised to call the office if there are any acute concerns about change in blood pressure readings at home. Hyperlipidemia - pt has been counseled about appropriate diet, exercise, and need for low fat food choices. I have discussed the need for the patient to take medications as prescribed. If the patient has negative side effects from the medication, they are to CALL the office and not abruptly discontinue the medication without discussion with a practitioner in the office. We will check labs in 3-6 months for follow up on the patient's chronic medical problem and to assure normal liver response to medications. Chronic Depression and anxiety - the pt has symptoms of chronic anxiety and depression that have been fairly well controlled since the last office visit. The pt has expected periods of exacerbation with abatement of the symptoms with change in situational exposure. No change in current medications. 04/26/2017 Appointment: Lesley Butcher WPtel: [id number] (15 min) Moderate 04/26/2017 Patient Education: Patient Medication Summary Completed 04/26/2017 Visit Plan: Hypertension - well controlled - continue with current medications, continue with no added salt diet. Pt has been encouraged to exercise daily. The pt has been advised to call the office if there are any acute concerns about change in blood pressure readings at home. Depression - stable - continue with current medication. Urge incontinence - increase dose of oxybutynin to 10mg daily. 01/25/2017 Appointment: Lesely Butcher WPtel: [id number] (30 min) Complex 01/25/2017 Patient Education: Patient Medication Summary Completed 01/25/2017 Patient Education: Patient Medication Summary Completed 01/03/2017 Care Plan: Total Psa Pending 01/03/2017 Care Plan: Tsh Pending 01/03/2017 Care Plan: Lipid Pending 01/03/2017 Care Plan: Cbc With Differential Pending 01/03/2017 Care Plan: Comp Metabolic Pending 01/03/2017 Visit Plan: Hypertension - well controlled - continue with current medications, continue with no added salt diet. Pt has been encouraged to exercise daily. The pt has been advised to call the office if there are any acute concerns about change in blood pressure readings at home. Depression - stable - continue with current medication. Urge incontinence - rx for detrol LA 10/26/2016 Appointment: Lesley Butcher WPtel: [address] [facility] (15 min) Moderate 10/26/2016 Patient Education: Patient Medication Summary Completed 10/26/2016 Visit Plan: Hypertension - well controlled - continue with current medications, continue with no added salt diet. Pt has been encouraged to exercise daily. The pt has been advised to call the office if there are any acute concerns about change in blood pressure readings at home. Depression - persistent - no change in medication at this time. Urgency of urination - rx for vesicare for pt, call if not improving, call if symptoms of urinary retention occur. 09/27/2016 Appointment: Lesley Butcher WPtel: [address] [facility] (15 min) Moderate 09/27/2016 Patient Education: Patient Medication Summary Completed 09/27/2016 Visit Plan: Hypertension - well controlled - continue with current medications, continue with no added salt diet. Pt has been encouraged to exercise daily. The pt has been advised to call the office if there are any acute concerns about change in blood pressure readings at home. Chronic Depression and anxiety - the pt has symptoms of chronic anxiety and depression that have been fairly well controlled since the last office visit. The pt has expected periods of exacerbation with abatement of the symptoms with change in situational exposure. No change in current medications. tetanus shot today agree with appt with shelli andrea 06/28/2016 Appointment: Lesley Butcher WPtel: [address] [facility] (15 min) Moderate 06/28/2016 Patient Education: Patient Medication Summary Completed 06/28/2016 Visit Plan: Hypertension - well controlled - continue with current medications, continue with no added salt diet. Pt has been encouraged to exercise daily. The pt has been advised to call the office if there are any acute concerns about change in blood pressure readings at home. Gout - chronic - continue with allopurinol. Iron deficiency anemia - continue with oral iron. 04/27/2016 Patient Education: Patient Medication Summary Completed 04/27/2016 Visit Plan: Hypertension - well controlled - continue with current medications, continue with no added salt diet. Pt has been encouraged to exercise daily. The pt has been advised to call the office if there are any acute concerns about change in blood pressure readings at home. Chronic Depression and anxiety - the pt has symptoms of chronic anxiety and depression that have been fairly well controlled since the last office visit. The pt has expected periods of exacerbation with abatement of the symptoms with change in situational exposure. No change in current medications. Hyperlipidemia - pt has been counseled about appropriate diet, exercise, and need for low fat food choices. I have discussed the need for the patient to take medications as prescribed. If the patient has negative side effects from the medication, they are to CALL the office and not abruptly discontinue the medication without discussion with a practitioner in the office. We will check labs in 3-6 months for follow up on the patient's chronic medical problem and to assure normal liver response to medications. Chronic gout-symptoms stable-continue allopurinol Allergies-recommend allergy eye drops-zaditor Freddiees-increase dexamethasone x 1 month 02/17/2016 Visit Plan: Hypertension - well controlled - continue with current medications, continue with no added salt diet. Pt has been encouraged to exercise daily. The pt has been advised to call the office if there are any acute concerns about change in blood pressure readings at home. Chronic Depression and anxiety - the pt has symptoms of chronic anxiety and depression that have been fairly well controlled since the last office visit. The pt has expected periods of exacerbation with abatement of the symptoms with change in situational exposure. No change in current medications. Hyperlipidemia - pt has been counseled about appropriate diet, exercise, and need for low fat food choices. I have discussed the need for the patient to take medications as prescribed. If the patient has negative side effects from the medication, they are to CALL the office and not abruptly discontinue the medication without discussion with a practitioner in the office. We will check labs in 3-6 months for follow up on the patient's chronic medical problem and to assure normal liver response to medications. Chronic gout-symptoms stable-continue allopurinol Allergies-recommend allergy eye drops-zaditor Ygjigargen-increase dexamethasone x 1 month ADDENDUM: Doctor's eval of the patient - I, Dr. Butcher , personally evaluated the patient with the nurse practitioner. I have reviewed the patient's chart, I have reviewed the patient's past medical history, problem list, medication list, and personal history. I agree with the documentation by the nurse practitioner in the HPI, physical exam, and the assessment and plan. 02/17/2016 Appointment: Merline Rose WPtel: [phone] (30 min) Complex 02/17/2016 Patient Education: Patient Medication Summary Completed 02/17/2016 Visit Plan: Gout-improved with recent colchicine-continue allopurinol as directed Depression - uncontrolled - Pt has been counseled about the diagnosis of depression, the potential causes, and risks associated with the diagnosis. The pt denies suicidal ideation, or plans. The patient has been counseled about treatment options, and understands the risks associated with treatment of depression, as well as the risks associated with NOT treating the depression. I believe the pt will benefit from medical intervention and an antidepressant has been appropriately prescribed for this patient. Edema - pt has been advised to elevate legs to prevent dependent edema, compression has been recommended to help to naturally decrease peripheral edema. Diuretic use has been discussed and pt has been instructed in appropriate use of such medication as necessary to further attempt to reduce peripheral edema. 01/20/2016 Appointment: (30 min) Complex 01/20/2016 Patient Education: Patient Medication Summary Completed 01/20/2016 Visit Plan: Gout Attack - pt given rx for medication for treatment of symptoms. Pt to call if symptoms do not improve, and plan to follow up in the office in 2 weeks. Patient instructed to increase water intake. Hypertension - well controlled - continue with current medications, continue with no added salt diet. Pt has been encouraged to exercise daily. The pt has been advised to call the office if there are any acute concerns about change in blood pressure readings at home. Depression-no change in treatment- continue with physical therapy to help with strengthening and continue to monitor symptoms-patient does not want medication at this time. 01/06/2016 Visit Plan: Gout Attack - pt given rx for medication for treatment of symptoms. Pt to call if symptoms do not improve, and plan to follow up in the office in 2 weeks. Patient instructed to increase water intake. Hypertension - well controlled - continue with current medications, continue with no added salt diet. Pt has been encouraged to exercise daily. The pt has been advised to call the office if there are any acute concerns about change in blood pressure readings at home. Depression-no change in treatment- continue with physical therapy to help with strengthening and continue to monitor symptoms-patient does not want medication at this time. 01/06/2016 Appointment: (30 min) Complex 01/06/2016 Patient Education: Patient Medication Summary Completed 01/06/2016 Patient Education: Hypertension Completed 01/06/2016 Visit Plan: Left foot pain - erythematous and edematous - tender to palpation - pt has had been treated twice for gout, will treat for gout and infection, will start on chronic gout medication. Will hold physical therapy during acute attake. Gout Attack - pt given RX for uric Acid Level, and rx for medication for treatment of symptoms. Pt to call if symptoms do not improve, and pt to be given results of labs when available. Generalized weakness - continue physical therapy after gout resolves, will give script for manual wheelchair and shower chair. Notify clinic with any questions or concerns. ADDENDUM: Doctor's eval of the patient - I, Dr. Butcher, personally evaluated the patient with the nurse practitioner. I have reviewed the patient' s chart, I have reviewed the patient's past medical history, problem list, medication list, and personal history. I agree with the documentation by the nurse practitioner in the HPI, physical exam, and the assessment and plan. 12/16/2015 Visit Plan: Left foot pain - erythematous and edematous - tender to palpation - pt has had been treated twice for gout, will treat for gout and infection, will start on chronic gout medication. Will hold physical therapy during acute attake. Gout Attack - pt given RX for uric Acid Level, and rx for medication for treatment of symptoms. Pt to call if symptoms do not improve, and pt to be given results of labs when available. Generalized weakness - continue physical therapy after gout resolves, will give script for manual wheelchair and shower chair. Notify clinic with any questions or concerns. 12/16/2015 Appointment: (30 min) Complex 12/16/2015 Patient Education: Patient Medication Summary Completed 12/16/2015 Appointment: Lesley Butcherl: [address] [facility] (15 min) Moderate 12/04/2015 Appointment: GuadalupeKatiy WPtel: [address] [facility] (15 min) Moderate 12/02/2015 Visit Plan: Admission to Hospital - Dr. Butcher in to see pt. Pt has diagnosis of acute illness necessitating hospital admission from the clinic. I have discussed the diagnosis and need for further work-up and acute hospital stay for the patient's health benefit. ADMIT FROM CLINIC TO HOSPITAL - PT IS ACUTELY ILL, REQUIRES HOSPITALIZATION. THE PATIENT HAS BEEN EVALUATED IN CLINIC AND THIS STANDS THE HOSPITAL HISTORY AND PHYSICAL EXAMINATION. THE PATIENT HAS BEEN SENT TO THE HOSPITAL WITH WRITTEN ORDERS FOR TREATMENT AND EVALUATION OF THE ACUTE ILLNESS. 11/27/2015 Visit Plan: Admission to Hospital - Dr. Butcher in to see pt. Pt has diagnosis of acute illness necessitating hospital admission from the clinic. I have discussed the diagnosis and need for further work-up and acute hospital stay for the patient's health benefit. 11/27/2015 Appointment: (15 min) Moderate 11/27/2015 Patient Education: Patient Medication Summary Completed 11/27/2015 Visit Plan: Hypertension - well controlled - continue with current medications, continue with no added salt diet. Pt has been encouraged to exercise daily. The pt has been advised to call the office if there are any acute concerns about change in blood pressure readings at home. Esophageal Reflux - the patient has been counseled against excessive intake of caffeine, spicy foods, peppermint, and cinnamon - all of which can exacerbate esophageal reflux. The patient is to take medications as prescribed and call the office if the symptoms are not improving. PT TO CALL BACK - HIS WILL HELP HIM DETERMINE IF HE NEEDS THE PREVNAR 13 SHOT HE WILL GET THE FLU SHOT AT THE PHARMACY 07/30/2015 Appointment: Lesley Butcher WPtel: [id number] (15 min) Moderate 07/30/2015 Patient Education: Patient Medication Summary Completed 07/30/2015 Patient Education: Hypertension Completed 07/30/2015 Visit Plan: Hypertension - well controlled - continue with current medications, continue with no added salt diet. Pt has been encouraged to exercise daily. The pt has been advised to call the office if there are any acute concerns about change in blood pressure readings at home. 06/09/2015 Appointment: (15 min) Moderate 06/09/2015 Patient Education: Patient Medication Summary Completed 06/09/2015 Visit Plan: Hypertension - well controlled - continue with current medications, continue with no added salt diet. Pt has been encouraged to exercise daily. The pt has been advised to call the office if there are any acute concerns about change in blood pressure readings at home. 04/29/2015 Appointment: Lesley Butcher WPtel: [id number] (15 min) Moderate 04/29/2015 Patient Education: Patient Medication Summary Completed 04/29/2015 Patient Education: Hypertension Completed 04/29/2015 Visit Plan: Hypertension - well controlled - continue with current medications, continue with no added salt diet. Pt has been encouraged to exercise daily. The pt has been advised to call the office if there are any acute concerns about change in blood pressure readings at home. Enlarged Prostate - recommended pt to start on flomax, monitor output - pt and his aware that it will take several weeks to notice a difference. Hyperlipidemia - pt has been counseled about appropriate diet, exercise, and need for low fat food choices. I have discussed the need for the patient to take medications as prescribed. If the patient has negative side effects from the medication, they are to CALL the office and not abruptly discontinue the medication without discussion with a practitioner in the office. We will check labs in 3-6 months for follow up on the patient's chronic medical problem and to assure normal liver response to medications. Allergies - chronic - recommended pt to use allergy medication as prescribed. Pt has been counseled as to the appropriate use of the medication. Pt to call if allergy symptoms are not controlled with the medication. If using nasal spray, instructions as follows: Nasal spray- use twice daily, one spray per nostril twice daily, after 30 minutes, rinse out nose with saline spray.. Use opposite hand per nostril to spray in the nasal steroid allergy spray. 02/19/2015 Patient Education: Patient Medication Summary Completed 02/19/2015 Patient Education: Hypertension Completed 02/19/2015 Referral: External, Ordering Provider Referral Appointment Requested Referral: [facility] 09/12 Referral info faxed Appointment Requested Referral: [facility] Referral Appointment Requested Instructions Comment CHECK CARDIAC ENYZMES AND EKG . WAV-gprdzcy-hsnfwaqqn of breath -patient reports worsening of chronic symptoms -will check EKG and cardiac enzymes to evaluate for acute changes - recommend patient follow up with his quality control specialist, Dr Stokes -patient, and daughter verbalized understanding of plan. Generalized weakness-discussed PT referral after cleared by cardiology -patient' s will call us when she wants to have it set up HTN-no change but monitor at home . Admission to Hospital - Dr. Butcher in to see pt. Pt has diagnosis of acute illness necessitating hospital admission from the clinic. I have discussed the diagnosis and need for further work-up and acute hospital stay for the patient's health benefit. ADMIT FROM CLINIC TO HOSPITAL - PT IS ACUTELY ILL, REQUIRES HOSPITALIZATION. THE PATIENT HAS BEEN EVALUATED IN CLINIC AND THIS STANDS THE HOSPITAL HISTORY AND PHYSICAL EXAMINATION. THE PATIENT HAS BEEN SENT TO THE HOSPITAL WITH WRITTEN ORDERS FOR TREATMENT AND EVALUATION OF THE ACUTE ILLNESS. . Admission to Hospital - Dr. Butcher in to see pt. Pt has diagnosis of acute illness necessitating hospital admission from the clinic. I have discussed the diagnosis and need for further work-up and acute hospital stay for the patient's health benefit. . Hypertension - well controlled - continue with current medications, continue with no added salt diet. Pt has been encouraged to exercise daily. The pt has been advised to call the office if there are any acute concerns about change in blood pressure readings at home. Take 1/2 tab of Citalopram daily for 2 weeks then take whole tab from then on. . Gout-improved with recent colchicine-continue allopurinol as directed Depression - uncontrolled - Pt has been counseled about the diagnosis of depression, the potential causes, and risks associated with the diagnosis. The pt denies suicidal ideation, or plans. The patient has been counseled about treatment options, and understands the risks associated with treatment of depression, as well as the risks associated with NOT treating the depression. I believe the pt will benefit from medical intervention and an antidepressant has been appropriately prescribed for this patient. Edema - pt has been advised to elevate legs to prevent dependent edema, compression has been recommended to help to naturally decrease peripheral edema. Diuretic use has been discussed and pt has been instructed in appropriate use of such medication as necessary to further attempt to reduce peripheral edema. . Influenza - pt started on tamiflu - pt to start on anti- inflammatories, tylenol and monitor symptoms. Pt to call if not improving. Pt to alert any close contacts as to illness. . Medicare Exam - today we discussed the patients past history, immunizations, preventative exams/evaluations - colonoscopy, fecal occult blood testing, routine labs for renal function, glucose, cholesterol, osteoporosis evaluations, cardiovascular testing and cancer screenings. We have also discussed mental health and the signs/symptoms of depression. The patient was advised of home safety evaluations and the need to make sure that as the aging process continues, we need to be aware of different ways to make the home a safer place to reside. The patient has also been counseled that exercise is necessary - and of utmost importance as we age to help decrease fall risk and to maintain independece in the home. Today we discussed the need for the patient to create paperwork for Advanced directives as well as for the patient to provide this office with a copy of her DOPA paperwork for health care surrogate. . Hypertension - well controlled - continue with current medications, continue with no added salt diet. Pt has been encouraged to exercise daily. The pt has been advised to call the office if there are any acute concerns about change in blood pressure readings at home. Gout - chronic - continue with allopurinol. Iron deficiency anemia - continue with oral iron. add vitamin b12 dissolving tablets - 2000mcg three times a week to your regimen of medication - this may help to improve fatigue. . Hypertension - well controlled - continue with current medications, continue with no added salt diet. Pt has been encouraged to exercise daily. The pt has been advised to call the office if there are any acute concerns about change in blood pressure readings at home. Hyperlipidemia - pt has been counseled about appropriate diet, exercise, and need for low fat food choices. I have discussed the need for the patient to take medications as prescribed. If the patient has negative side effects from the medication, they are to CALL the office and not abruptly discontinue the medication without discussion with a practitioner in the office. We will check labs in 3-6 months for follow up on the patient's chronic medical problem and to assure normal liver response to medications. Chronic Depression and anxiety - the pt has symptoms of chronic anxiety and depression that have been fairly well controlled since the last office visit. The pt has expected periods of exacerbation with abatement of the symptoms with change in situational exposure. No change in current medications. . Shortness of breath - Hx of sleep apnea - will need to get pt an overnight oxygen study - we will call [facility] to set him up for an overnight oxygen. Fatigue/malaise - discussed with pt and his daughter and his . I have recommended that the patient have the oxygen study - we will get him set up to see Dr. Panda to evaluate his CPAP to see if it is effective for his sleep apnea. Ambulatory oxygen was negative - his heart rate got up to 105, oxygen stayed at 96% . Hypertension - well controlled - continue with current medications, continue with no added salt diet. Pt has been encouraged to exercise daily. The pt has been advised to call the office if there are any acute concerns about change in blood pressure readings at home. Enlarged Prostate - recommended pt to start on flomax, monitor output - pt and his aware that it will take several weeks to notice a difference. Hyperlipidemia - pt has been counseled about appropriate diet, exercise, and need for low fat food choices. I have discussed the need for the patient to take medications as prescribed. If the patient has negative side effects from the medication, they are to CALL the office and not abruptly discontinue the medication without discussion with a practitioner in the office. We will check labs in 3-6 months for follow up on the patient's chronic medical problem and to assure normal liver response to medications. Allergies - chronic - recommended pt to use allergy medication as prescribed. Pt has been counseled as to the appropriate use of the medication. Pt to call if allergy symptoms are not controlled with the medication. If using nasal spray, instructions as follows: Nasal spray- use twice daily, one spray per nostril twice daily, after 30 minutes, rinse out nose with saline spray.. Use opposite hand per nostril to spray in the nasal steroid allergy spray. . Vertigo - vestibular/cochlearVestibular therapy with Allan Ingram. Hypertension - well controlled - continue with current medications, continue with no added salt diet. Pt has been encouraged to exercise daily. The pt has been advised to call the office if there are any acute concerns about change in blood pressure readings at home. . Diverticulosis with recent GI bleeding - improved - continue with supportive care, avoid foods which cause any abdominal pain - monitor symptoms - call if any pain or bleeding recurs. Anemia - check labs today. Weakness - continue with increasing of activity. the light-headedness that you are experiencing is called "orthostasis" - it is when your blood pressure is not equilibrating correctly from laying down to sitting or sitting to standing position - it is sluggish in it's response and takes a minute or two to get your blood presure to come up to "normal" from a sitting position. . Hypertension - well controlled - continue with current medications, continue with no added salt diet. Pt has been encouraged to exercise daily. The pt has been advised to call the office if there are any acute concerns about change in blood pressure readings at home. Chronic Depression and anxiety - the pt has symptoms of chronic anxiety and depression that have been fairly well controlled since the last office visit. The pt has expected periods of exacerbation with abatement of the symptoms with change in situational exposure. No change in current medications. Hearing loss - improved with cochlear implant. increase citalopram to 40mg daily . Hypertension - well controlled - continue with current medications, continue with no added salt diet. Pt has been encouraged to exercise daily. The pt has been advised to call the office if there are any acute concerns about change in blood pressure readings at home. Chronic Depression and anxiety - the pt has symptoms of chronic anxiety and depression that have been fairly well controlled since the last office visit. The pt has expected periods of exacerbation with abatement of the symptoms with change in situational exposure. No change in current medications. tetanus shot today agree with appt with shelli andrea . Medicare Exam - today we discussed the patients past history, immunizations, preventative exams/evaluations - colonoscopy, fecal occult blood testing, routine labs for renal function, glucose, cholesterol, osteoporosis evaluations, cardiovascular testing and cancer screenings. We have also discussed mental health and the signs/symptoms of depression. The patient was advised of home safety evaluations and the need to make sure that as the aging process continues, we need to be aware of different ways to make the home a safer place to reside. The patient has also been counseled that exercise is necessary - and of utmost importance as we age to help decrease fall risk and to maintain independece in the home. Today we discussed the need for the patient to create paperwork for Advanced directives as well as for the patient to provide this office with a copy of her DOPA paperwork for health care surrogate. . Hypertension - well controlled - continue with current medications, continue with no added salt diet. Pt has been encouraged to exercise daily. The pt has been advised to call the office if there are any acute concerns about change in blood pressure readings at home. . Hypertension - well controlled - continue with current medications, continue with no added salt diet. Pt has been encouraged to exercise daily. The pt has been advised to call the office if there are any acute concerns about change in blood pressure readings at home. Generalized weakness - Adrenal insufficiency - kenalog shot today and recommendation for pt to restart his dexamethasone. . Gout Attack - pt given rx for medication for treatment of symptoms. Pt to call if symptoms do not improve, and plan to follow up in the office in 2 weeks. Patient instructed to increase water intake. Hypertension - well controlled - continue with current medications, continue with no added salt diet. Pt has been encouraged to exercise daily. The pt has been advised to call the office if there are any acute concerns about change in blood pressure readings at home. Depression-no change in treatment-continue with physical therapy to help with strengthening and continue to monitor symptoms-patient does not want medication at this time. . Gout Attack - pt given rx for medication for treatment of symptoms. Pt to call if symptoms do not improve, and plan to follow up in the office in 2 weeks. Patient instructed to increase water intake. Hypertension - well controlled - continue with current medications, continue with no added salt diet. Pt has been encouraged to exercise daily. The pt has been advised to call the office if there are any acute concerns about change in blood pressure readings at home. Depression-no change in treatment-continue with physical therapy to help with strengthening and continue to monitor symptoms-patient does not want medication at this time. . Hypertension - well controlled - continue with current medications, continue with no added salt diet. Pt has been encouraged to exercise daily. The pt has been advised to call the office if there are any acute concerns about change in blood pressure readings at home. the light-headedness that you are experiencing is called "orthostasis" - it is when your blood pressure is not equilibrating correctly from laying down to sitting or sitting to standing position - it is sluggish in it's response and takes a minute or two to get your blood presure to come up to "normal" from a sitting position. . Hypertension - well controlled - continue with current medications, continue with no added salt diet. Pt has been encouraged to exercise daily. The pt has been advised to call the office if there are any acute concerns about change in blood pressure readings at home. Chronic Depression and anxiety - the pt has symptoms of chronic anxiety and depression that have been fairly well controlled since the last office visit. The pt has expected periods of exacerbation with abatement of the symptoms with change in situational exposure. No change in current medications. Hearing loss -keep appt at for cochlear implant. Hyperlipidemia - pt has been counseled about appropriate diet, exercise, and need for low fat food choices. I have discussed the need for the patient to take medications as prescribed. If the patient has negative side effects from the medication, they are to CALL the office and not abruptly discontinue the medication without discussion with a practitioner in the office. We will check labs in 3-6 months for follow up on the patient's chronic medical problem and to assure normal liver response to medications. Vesicare 5mg - take one pill at supper-time every evening.. Hypertension - well controlled - continue with current medications, continue with no added salt diet. Pt has been encouraged to exercise daily. The pt has been advised to call the office if there are any acute concerns about change in blood pressure readings at home. Depression - persistent - no change in medication at this time. Urgency of urination - rx for vesicare for pt, call if not improving, call if symptoms of urinary retention occur. . Hypertension - well controlled - continue with current medications, continue with no added salt diet. Pt has been encouraged to exercise daily. The pt has been advised to call the office if there are any acute concerns about change in blood pressure readings at home. Chronic Depression and anxiety - the pt has symptoms of chronic anxiety and depression that have been fairly well controlled since the last office visit. The pt has expected periods of exacerbation with abatement of the symptoms with change in situational exposure. No change in current medications. Hearing loss - recommended patient to have an evaluation at [facility] to see if he has potential for cochlear implant. . BPH - continue with dutasteride and flomax Dysphagia - referral to Dr. Kumar for EGD - question stricture - dysphagia intermittently - hx of stricture. . Hypertension - well controlled - continue with current medications, continue with no added salt diet. Pt has been encouraged to exercise daily. The pt has been advised to call the office if there are any acute concerns about change in blood pressure readings at home. Depression - stable - continue with current medication. Urge incontinence - rx for detrol LA Do physical therapy once the gout gets better, after 2 - 3 days. Stop fish oil for now. Dexamethazone - increase to twice a day for 1 week, then go back down to once a day. Hold glucosamine and chondroitin for a few weeks. Use neosporin on incision Will write script for manual wheelchair and shower chair. . Left foot pain - erythematous and edematous - tender to palpation - pt has had been treated twice for gout, will treat for gout and infection, will start on chronic gout medication. Will hold physical therapy during acute attake. Gout Attack - pt given RX for uric Acid Level, and rx for medication for treatment of symptoms. Pt to call if symptoms do not improve, and pt to be given results of labs when available. Generalized weakness - continue physical therapy after gout resolves, will give script for manual wheelchair and shower chair. Notify clinic with any questions or concerns. ADDENDUM: Doctor's eval of the patient - I, Dr. Butcher, personally evaluated the patient with the nurse practitioner. I have reviewed the patient's chart, I have reviewed the patient's past medical history, problem list, medication list, and personal history. I agree with the documentation by the nurse practitioner in the HPI, physical exam, and the assessment and plan. increase oxybutynin to 10mg daily. . Hypertension - well controlled - continue with current medications, continue with no added salt diet. Pt has been encouraged to exercise daily. The pt has been advised to call the office if there are any acute concerns about change in blood pressure readings at home. Depression - stable - continue with current medication. Urge incontinence - increase dose of oxybutynin to 10mg daily. change spironolactone to early afternoon hold the plavix 72 hours prior to planned injection in back and call the filtration plant operator about a biopsy of the lesion on the left lower lip. . Hypertension - well controlled - continue with current medications, continue with no added salt diet. Pt has been encouraged to exercise daily. The pt has been advised to call the office if there are any acute concerns about change in blood pressure readings at home. Vertigo - improved - continue with current regimen. Low back pain - keep appt with Dr. Winston salcedo to hold plavix for 72 hours prior to planned back injection. Skin lesion left lower lip - discussed with patient he needs this lesion biopsied since it has not healed after the last two cryotherapy sessions. CHECK FASTING LABS DEXAMETHASONE 0.5MG-TAKE A FULL TAB DAILY X 1 MONTH THEN DECREASE TO 1/2 PILL DAILY . Hypertension - well controlled - continue with current medications, continue with no added salt diet. Pt has been encouraged to exercise daily. The pt has been advised to call the office if there are any acute concerns about change in blood pressure readings at home. Chronic Depression and anxiety - the pt has symptoms of chronic anxiety and depression that have been fairly well controlled since the last office visit. The pt has expected periods of exacerbation with abatement of the symptoms with change in situational exposure. No change in current medications. Hyperlipidemia - pt has been counseled about appropriate diet, exercise, and need for low fat food choices. I have discussed the need for the patient to take medications as prescribed. If the patient has negative side effects from the medication, they are to CALL the office and not abruptly discontinue the medication without discussion with a practitioner in the office. We will check labs in 3-6 months for follow up on the patient's chronic medical problem and to assure normal liver response to medications. Chronic gout-symptoms stable-continue allopurinol Allergies-recommend allergy eye drops-angela Vang-increase dexamethasone x 1 month CHECK FASTING LABS DEXAMETHASONE 0.5MG-TAKE A FULL TAB DAILY X 1 MONTH THEN DECREASE TO 1/2 PILL DAILY . Hypertension - well controlled - continue with current medications, continue with no added salt diet. Pt has been encouraged to exercise daily. The pt has been advised to call the office if there are any acute concerns about change in blood pressure readings at home. Chronic Depression and anxiety - the pt has symptoms of chronic anxiety and depression that have been fairly well controlled since the last office visit. The pt has expected periods of exacerbation with abatement of the symptoms with change in situational exposure. No change in current medications. Hyperlipidemia - pt has been counseled about appropriate diet, exercise, and need for low fat food choices. I have discussed the need for the patient to take medications as prescribed. If the patient has negative side effects from the medication, they are to CALL the office and not abruptly discontinue the medication without discussion with a practitioner in the office. We will check labs in 3-6 months for follow up on the patient's chronic medical problem and to assure normal liver response to medications. Chronic gout-symptoms stable-continue allopurinol Allergies-recommend allergy eye drops-angela Vang-increase dexamethasone x 1 month ADDENDUM: Doctor's eval of the patient - I, Dr. Butcher, personally evaluated the patient with the nurse practitioner. I have reviewed the patient's chart, I have reviewed the patient's past medical history, problem list, medication list, and personal history. I agree with the documentation by the nurse practitioner in the HPI, physical exam, and the assessment and plan. Do physical therapy once the gout gets better, after 2 - 3 days. Stop fish oil for now. Dexamethazone - increase to twice a day for 1 week, then go back down to once a day. Hold glucosamine and chondroitin for a few weeks. Use neosporin on incision Will write script for manual wheelchair and shower chair. . Left foot pain - erythematous and edematous - tender to palpation - pt has had been treated twice for gout, will treat for gout and infection, will start on chronic gout medication. Will hold physical therapy during acute attake. Gout Attack - pt given RX for uric Acid Level, and rx for medication for treatment of symptoms. Pt to call if symptoms do not improve, and pt to be given results of labs when available. Generalized weakness - continue physical therapy after gout resolves, will give script for manual wheelchair and shower chair. Notify clinic with any questions or concerns. . Hypertension - well controlled - continue with current medications, continue with no added salt diet. Pt has been encouraged to exercise daily. The pt has been advised to call the office if there are any acute concerns about change in blood pressure readings at home. Esophageal Reflux - the patient has been counseled against excessive intake of caffeine, spicy foods, peppermint, and cinnamon - all of which can exacerbate esophageal reflux. The patient is to take medications as prescribed and call the office if the symptoms are not improving. PT TO CALL BACK - HIS WILL HELP HIM DETERMINE IF HE NEEDS THE PREVNAR 13 SHOT HE WILL GET THE FLU SHOT AT THE PHARMACY
--- OUTSIDE RECORDS SUMMARY | 2018-12-19 12:28 | XMS REPORT | CCD ---
Author Author [facility] Organization [facility] Address [address] [place] [address] Phone Care Team Providers Care Suspension Cord Tier Name Role Phone PP Unavailable CCM Unavailable Summary Purpose Interface Exchange Insurance Providers Payer name Policy type / Coverage type Covered republican ID Effective Begin Date Effective End Date WPS Medicare Part B Medicare Part B [id number] 2018 Unknown [facility] Medicare Part B [id number] 2018 Unknown Family history Father Diagnosis Age At Onset Hypertension Unknown Coronary Artery Disease Unknown Sister Diagnosis Age At Onset Heart disease Unknown Mother Diagnosis Age At Onset Coronary Artery Disease Unknown Hypertension Unknown Social History Social History Element Codes Description Effective Dates Marital status Unknown 02/19/2015 Number of children Unknown 2 02/19/2015 Employment Unknown Retired 02/19/[address]: 933367393 Has never smoked or chewed tobacco 02/19/2015 Alcohol history Unknown occasionally drinks alcohol 02/19/2015 Allergies, Adverse Reactions, Alerts Substance Reaction Codes Entered Date Inactivated Date Status bactrim RxNorm: 652480 12/19/2015 No Inactive Date Active ciprofloxacin RxNorm: 18861 02/18/2015 No Inactive Date Active Past Medical History Illness Codes Condition Status Onset Date Resolved Date Dizziness and giddiness ICD-9: 780.4 ICD-10: R42 Active 07/26/2018 Unknown Essential (primary) hypertension ICD-9: 401.1 ICD-10: I10 Active 06/27/2016 Unknown Muscle weakness (generalized) ICD-9: 728.87 ICD-10: M62.81 Active 11/27/2018 Unknown Other fatigue ICD-9: 780.79 ICD-10: R53.83 Active 11/27/2018 Unknown Shortness of breath ICD-9: 786.05 ICD-10: R06.02 Active 11/27/2018 Unknown Essential (primary) hypertension ICD-9: [...] -9: 780.60 ICD-10: R50.9 Active 12/08/2017 Unknown Other malaise ICD-9: 780.79 ICD-10: R53.81 Active 12/08/2017 Unknown Benign prostatic hyperplasia without [...] Problems Condition Codes Effective Dates Condition Status Dizziness and giddiness ICD-9: 780.4 ICD-10: R42 07/26/2018 Active Essential (primary) hypertension ICD-9: 401.1 ICD-10: I10 06/27/2016 Active Muscle weakness (generalized) ICD-9: 728.87 ICD-10: M62.81 11/27/2018 Active Other fatigue ICD-9: 780.79 ICD-10: R53.83 11/27/2018 Active Shortness of breath ICD-9: 786.05 ICD-10: R06.02 11/27/2018 Active Essential (primary) hypertension ICD-9: 401.9 [...] ICD -9: 780.60 ICD-10: R50.9 12/08/2017 Active Other malaise ICD-9: 780.79 ICD-10: R53.81 12/08/2017 Active Benign prostatic hyperplasia without lower [...] Instructions pantoprazole 40 mg tablet,delayed release RxNorm: 054138 TAKE ONE TABLET BY MOUTH ONCE DAILY AT BEDTIME 11/27/2018 No Stop Date Active atorvastatin 40 mg tablet RxNorm: 295920 1 Tablet(s) PO daily 09/26/2018 10/25/2018 Inactive dexamethasone 0.5 mg tablet RxNorm: 373940 TAKE 1 TABLET BY MOUTH ONCE DAILY 08/29/2018 No Stop Date Active clonazepam 1 mg tablet RxNorm: 555027 1/2 Tablet(s) PO QHS 05/201812/21/2018 Active allopurinol 100 mg tablet RxNorm: 998881 TAKE ONE TABLET BY MOUTH ONCE DAILY 08/03/2018 No Stop Date Active citalopram 40 mg tablet RxNorm: 745999 TAKE ONE TABLET BY MOUTH ONCE DAILY 06/13/2018 No Stop Date Active Kenalog 40 mg/mL suspension for injection RxNorm: 3368115 Milliliter(s) Inj 06/12/2018 06/12/2018 Inactive clonazepam 1 mg tablet RxNorm: 601307 1 Tablet(s) PO QHS 201708/23/2018 Inactive losartan 50 mg tablet RxNorm: 660817 1/2 Tablet(s) PO daily 05/2018 No Stop Date Active clonazepam 1 mg tablet RxNorm: 209410 1/2 Tablet(s) TAKE ONE TABLET BY MOUTH ONCE DAILY AT BEDTIME AND ONE TABLET THREE TIMES DAILY NEEDED 05/24/2018 06/11/2018 Inactive citalopram 40 mg tablet RxNorm: 610876 1/2 Tablet(s) TAKE ONE TABLET BY MOUTH ONCE DAILY 05/24/2018 09/25/2018 Inactive spironolactone 25 mg tablet RxNorm: 683109 TAKE ONE TABLET BY MOUTH ONCE DAILY 05/22/2018 No Stop Date Active dexamethasone 0.5 mg tablet RxNorm: 712491 TAKE ONE TABLET BY MOUTH ONCE DAILY 02/21/2018 08/28/2018 Inactive Flomax 0.4 mg capsule RxNorm: 103738 TAKE ONE CAPSULE BY MOUTH ONCE DAILY IN THE EVENING 12/19/2017 No Stop Date Active Tamiflu 75 mg capsule RxNorm: 589084 1 Capsule(s) PO BID 201712/12/2017 Inactive clonazepam 1 mg tablet RxNorm: 023470 Tablet(s) TAKE ONE TABLET BY MOUTH ONCE DAILY AT BEDTIME AND ONE TABLET THREE TIMES DAILY NEEDED 11/28/2017 01/26/2018 Inactive pantoprazole 40 mg tablet,delayed release RxNorm: 861964 TAKE ONE TABLET BY MOUTH ONCE DAILY AT BEDTIME 11/07/20172018 Inactive allopurinol 100 mg tablet RxNorm: 073956 TAKE ONE TABLET BY MOUTH ONCE DAILY 10/03/2017 08/02/2018 Inactive pantoprazole 40 mg tablet,delayed release RxNorm: 898809 1 Tablet(s) PO BID 09/01/2017 05/28/2018 Inactive Vitamin B-6 100 mg tablet RxNorm: 743521 1 Tablet(s) PO daily 09/01/2017 06/11/2018 Inactive dutasteride 0.5 mg capsule RxNorm: 586593 1 Capsule(s) PO QPM 09/01/2017 06/11/2018 Inactive spironolactone 25 mg tablet RxNorm: 946710 TAKE ONE TABLET BY MOUTH ONCE DAILY 08/15/2017 05/21/2018 Inactive citalopram 40 mg tablet RxNorm: 382306 TAKE ONE TABLET BY MOUTH ONCE DAILY 08/08/2017 05/04/2018 Inactive dexamethasone 0.5 mg tablet RxNorm: 716561 TAKE ONE TABLET BY MOUTH ONCE DAILY 08/08/2017 11/05/2017 Inactive clonazepam 1 mg tablet RxNorm: 083824 TAKE ONE TABLET BY MOUTH ONCE DAILY AT BEDTIME AND ONE THREE TIMES DAILY NEEDED 05/12/2017 08/08/2017 Inactive clonazepam 1 mg tablet RxNorm: 369598 1 Tablet(s) PO QHS AND 1 TAB PO TID PRN 05/12/2017 05/13/2017 Inactive oxybutynin chloride ER 10 mg tablet,extended release 24 hr RxNorm: 987563 1 Tablet (s) PO daily 04/29/2017 08/02/2017 Inactive dexamethasone 0.5 mg tablet RxNorm: 009219 TAKE ONE TABLET BY MOUTH ONCE DAILY 02/14/2017 04/14/2017 Inactive Flomax 0.4 mg capsule RxNorm: 527379 TAKE ONE CAPSULE BY MOUTH ONCE DAILY IN THE EVENING 02/14/2017 11/10/2017 Inactive pantoprazole 40 mg tablet,delayed release RxNorm: 815870 TAKE ONE TABLET BY MOUTH ONCE DAILY AT BEDTIME 02/14/20172016 Inactive oxybutynin chloride ER 10 mg tablet,extended release 24 hr RxNorm: 416753 1 Tablet (s) PO daily 01/25/2017 04/24/2017 Inactive dexamethasone 0.5 mg tablet RxNorm: 948063 TAKE ONE TABLET BY MOUTH ONCE DAILY 11/10/2016 12/09/2016 Inactive oxybutynin chloride ER 5 mg tablet,extended release 24 hr RxNorm: 928471 1 Tablet( s) PO daily 10/28/2016 10/27/2016 Inactive oxybutynin chloride ER 5 mg tablet,extended release 24 hr RxNorm: 977271 1 Tablet( s) PO daily 10/28/2016 01/24/2017 Inactive Detrol LA 2 mg capsule,extended release RxNorm: 396631 1 Capsule(s) PO QPM 10/26/2016 10/27/2016 Inactive clonazepam 1 mg tablet RxNorm: 202205 1 Tablet(s) PO QHS AND 1 TAB PO TID PRN 10/20/2016 04/17/2017 Inactive dexamethasone 0.5 mg tablet RxNorm: 913481 TAKE ONE TABLET BY MOUTH ONCE DAILY 10/06/2016 11/04/2016 Inactive allopurinol 100 mg tablet RxNorm: 731519 1 Tablet(s) PO daily 09/30/2016 09/24/2017 Inactive Vesicare 5 mg tablet RxNorm: 197630 1 Tablet(s) PO QPM 201512/12/2016 Inactive spironolactone 25 mg tablet RxNorm: 784192 1 Tablet(s) PO daily 08/06/2016 07/31/2017 Inactive citalopram 40 mg tablet RxNorm: 807243 1 Tablet(s) PO daily 09/201606/22/2017 Inactive Plavix 75 mg tablet RxNorm: 537799 1 Tablet(s) PO daily 2015 No Stop Date Active iron ER 159 mg (45 mg iron) tablet,extended release RxNorm: 801105 1 Tablet(s) PO daily 04/27/2016 08/31/2017 Inactive dexamethasone 0.5 mg tablet RxNorm: 301706 1/2 Tablet(s) PO daily 04/27/2016 02/20/2018 Inactive allopurinol 100 mg tablet RxNorm: 242791 1 Tablet(s) PO daily 04/27/2016 09/29/2016 Inactive clonazepam 1 mg tablet RxNorm: 674667 1 Tablet(s) PO QHS and 1 tab po TID prn 04/14/2016 10/07/2016 Inactive allopurinol 100 mg tablet RxNorm: 055202 1 Tablet(s) PO daily 02/17/2016 04/26/2016 Inactive citalopram 20 mg tablet RxNorm: 097472 1 Tablet(s) PO daily 02/201606/27/2016 Inactive Flomax 0.4 mg capsule RxNorm: 511697 1 Capsule(s) PO QPM 201501/13/2017 Inactive [SAVINGS FOR NON-COVERED DRUGS -- BIN:[id number], PCN: ASPROD1, Group: XXXXX, ID # XXXXXXX, Questions: . THIS IS NOT INSURANCE.] pantoprazole 40 mg tablet,delayed release RxNorm: 211894 1 Tablet(s) PO QHS 01/20/2016 01/13/2017 Inactive Colcrys 0.6 mg tablet RxNorm: 213657 1 Tablet(s) PO daily 201503/05/2016 Inactive take daily x 7 days then daily as needed for gout flair colchicine 0.6 mg tablet RxNorm: 680786 1 Tablet(s) PO BID 01/01/2016 Inactive doxycycline hyclate 100 mg tablet RxNorm: 948817 1 Tablet(s) PO BID 12/19/2015 12/28/2015 Inactive doxycycline hyclate 100 mg tablet RxNorm: 683278 1 Tablet(s) PO BID 12/19/2015 12/18/2015 Inactive allopurinol 100 mg tablet RxNorm: 659816 1 Tablet(s) PO daily 12/16/2015 02/16/2016 Inactive colchicine 0.6 mg tablet RxNorm: 417435 Tablet(s) PO 1.2 mg PO in the morning and 0.6 mg at night for 2 days. 12/16/2015 Inactive allopurinol 100 mg tablet RxNorm: 279568 1 Tablet(s) PO daily 12/16/2015 12/15/2015 Inactive Protonix 40 mg tablet,delayed release RxNorm: 561729 1 Tablet(s) PO daily 12/16/2015 01/14/2016 Inactive Bactrim DS 800 mg-160 mg tablet RxNorm: 325697 1 Tablet(s) PO BID 12/16/2015 12/18/2015 Inactive colchicine 0.6 mg tablet RxNorm: 464123 Tablet(s) PO 1.2 mg for the first dose and 0.6 mg an hour after 12/15/20152015 Inactive dexamethasone 0.5 mg tablet RxNorm: 470692 1 Tablet(s) PO 12/1202/09/2016 Inactive Plavix 75 mg tablet RxNorm: 996779 1 Tablet(s) PO every other day 12/12/2015 04/09/2016 Inactive nitroglycerin 0.4 mg sublingual tablet RxNorm: 912371 1 Tablet(s) SL x3 in 15 min as needed 12/12/2015 04/26/2016 Inactive clonazepam 1 mg tablet RxNorm: 047821 1 Tablet(s) PO QHS and 1 tab po TID prn 12/11/2015 12/03/2016 Inactive [place] 5 mg-325 mg tablet RxNorm: 278407 1-2 Tablet(s) PO Q6 as needed 12/11/2015 09/26/2016 Inactive clonazepam 1 mg tablet RxNorm: 758506 1 Tablet(s) PO QHS and 1 tab po TID prn 12/04/2015 12/10/2015 Inactive Flomax 0.4 mg capsule RxNorm: 297607 1 Capsule(s) PO QPM 201401/19/2016 Inactive [SAVINGS FOR NON-COVERED DRUGS -- BIN:[id number], PCN: ASPROD1, Group: XXXXX, ID # XXXXXXX, Questions: . THIS IS NOT INSURANCE.] Flomax 0.4 mg capsule RxNorm: 493802 1 Capsule(s) PO QPM 201409/21/2015 Inactive [SAVINGS FOR NON-COVERED DRUGS -- BIN:423288, PCN: ASPROD1, Group: XXXXX, ID # [id number], Questions: . THIS IS NOT INSURANCE.] clonazepam 1 mg tablet RxNorm: 020451 1 Tablet(s) PO QHS 201412/03/2015 Inactive coenzyme Q10 10 mg tablet RxNorm: 294148 1 Tablet(s) PO daily 07/30/2015 01/05/2016 Inactive spironolactone 25 mg tablet RxNorm: 138501 1 Tablet(s) PO daily 07/28/2015 07/21/2016 Inactive spironolactone 25 mg tablet RxNorm: 501796 1 Tablet(s) PO daily 07/22/2015 07/27/2015 Inactive clonazepam 1 mg tablet RxNorm: 586820 1 Tablet(s) PO QHS 201408/28/2015 Inactive losartan 25 mg tablet RxNorm: 611845 1 Tablet(s) PO daily 201403/20/2015 Inactive Flonase Allergy Relief 50 mcg/actuation nasal spray, suspension RxNorm: 1 [place] NASAL BID 02/19/2015 04/26/2016 Inactive [SAVINGS FOR NON-COVERED DRUGS -- BIN:[id number], PCN: ASPROD1, Group: XXXXX, ID# [id number], Questions: [phone]. THIS IS NOT INSURANCE.] Flomax 0.4 mg capsule RxNorm: 884832 1 Capsule(s) PO QPM 201409/15/2015 Inactive [SAVINGS FOR NON-COVERED DRUGS -- BIN:842507, PCN: ASPROD1, Group: XXXXX, ID # XXXXXXX, Questions: . THIS IS NOT INSURANCE.] citalopram 20 mg tablet RxNorm: 348961 1 Tablet(s) PO daily 03/201503/20/2015 Inactive atenolol 25 mg tablet RxNorm: 008724 1 Tablet(s) PO daily 201403/20/2015 Inactive Lipitor 20 mg tablet RxNorm: 161165 1 Tablet(s) PO daily 201403/20/2015 Inactive vitamin B complex oral RxNorm: 08266 oral No Start Date Active Claritin-D 24 Hour oral RxNorm: 432975 oral No Start Date Active Lipitor oral RxNorm: 12668 oral No Start Date Active cetirizine 10 mg tablet RxNorm: 1836727 1 Tablet(s) PO daily No Start Date Active Aleve 220 mg tablet RxNorm: 762982 Tablet(s) PO as needed No Start Date Active Vitamin D3 1,000 unit capsule RxNorm: 124687 2 Capsule(s) PO daily No Start Date Active Centrum Complete oral RxNorm: 86863 oral No Start Date Active glucosamine HCl 1,500 mg tablet RxNorm: 953277 1 Tablet(s) with 1200 mg chrondroitin PO daily No Start Date 2017 Inactive ranitidine 150 mg tablet RxNorm: 123927 1 Tablet(s) PO TID No Start Date 12/11/2015 Inactive [place] 5 mg-325 mg tablet RxNorm: 115186 1-2 Tablet(s) PO Q6 as needed No Start Date 12/10/2015 Inactive krill oil oral RxNorm : 85620 oral No Start Date 08/07/2018 Inactive Vitamin B-6 100 mg tablet RxNorm: 340590 1 Tablet(s) PO TID No Start Date 08/31/2017 Inactive spironolactone 25 mg tablet RxNorm: 006954 1 Tablet(s) PO daily No Start Date 07/21/2015 Inactive Vitamin D3 oral RxNorm : 2418 oral No Start Date 02/17/2016 Inactive clonazepam 1 mg tablet RxNorm: 936576 1 Tablet(s) PO daily No Start Date 05/22/2015 Inactive Glucosamine oral RxNorm: 4845 oral No Start Date 04/26/2016 Inactive losartan 50 mg tablet RxNorm: 399434 1 Tablet(s) PO daily No Start Date 05/23/2018 Inactive Plavix 75 mg tablet RxNorm: 765974 1 Tablet(s) PO every other day No Start Date 12/11/2015 Inactive Osteo Bi-Flex oral RxNorm: 3859044 oral No Start Date 09/01/2017 Inactive iron ER 159 mg (45 mg iron) tablet,extended release RxNorm: 368878 1 Tablet(s) PO BID No Start Date 04/26/2016 Inactive amlodipine 5 mg tablet RxNorm: 432097 1 Tablet(s) PO daily No Start Date 01/05/2016 Inactive aspirin 81 mg tablet,delayed release RxNorm: 965860 1 Tablet(s) PO daily No Start Date 05/09/2018 Inactive dexamethasone 0.5 mg tablet RxNorm: 152680 1 Tablet(s) PO No Start Date 12/11/2015 Inactive Vitamin B-12 1,000 mcg tablet RxNorm: 816725 6 Tablet(s) PO every other day No Start Date 06/11/2018 Inactive colchicine 0.6 mg tablet RxNorm: 674643 Tablet(s) PO 1.2 mg for the first dose and 0.6 mg an hour after No Start Date Inactive nitroglycerin 0.4 mg sublingual tablet RxNorm: 807942 1 Tablet(s) SL x3 in 15 min as needed No Start Date 12/11/2015 Inactive Fish Oil 1,000 mg capsule RxNorm: 1 Capsule(s) PO daily No Start Date 04/26/2016 Inactive Ecotrin Low Strength 81 mg tablet,enteric coated RxNorm: 5129469 1 Tablet(s) PO daily No Start Date 09/27/2016 Inactive Medication Administered Medication Codes Instructions Start Date Status Kenalog 40 mg/mL suspension for injection RxNorm: 2231522 Milliliter 06/12/2018 No longer Active Immunizations Vaccine Codes Date Status Influenza CVX: 141 07/05/2018 completed Influenza CVX: 141 08/01/2017 completed Pneumococcal CVX: 33 08/01/2017 completed Influenza CVX: 141 06/28/2016 completed Tetanus, Diptheria, Pertussis CVX: 113 completed Tetanus/Diptheria CVX: 113 06/28/2016 completed Pneumococcal Unknown 08/04/2015 completed Influenza CVX: 141 04/16/2014 completed Pneumococcal CVX: 33 05/15/2008 completed Assessments Condition Codes Effective Dates Muscle weakness (generalized) ICD-10: M62.81 ICD-9: 728.87 11/27/2018 Shortness of breath ICD-10: R06.02 ICD-9: 786.05 11/27/2018 Dizziness and giddiness ICD-10: R42 ICD-9: 780.4 11/27/2018 Other fatigue ICD-10: R53.83 ICD-9: 780.79 11/27/2018 Essential (primary) hypertension ICD-10: I10 ICD-9: [...] Fever, unspecified ICD-10: R50.9 ICD-9: 780.60 12/08/2017 Other malaise ICD-10: R53.81 ICD-9: 780.79 12/08/2017 Dysphagia, pharyngeal phase ICD-10: R13.13 ICD-9: [...] Reason For Visit Effective Dates Notes fatigue 11/27/2018 dyspepsia 09/26/2018 Annual Medicare Wellness [...] 14.4 g/dl 10/20/2018 Cbc With Differential Ord2 HCT 42.7 % 10/20/2018 Cbc With Differential Ord2 Neut% 77.2 % 10/20/2018 Cbc With Differential Ord2 MCV 90.1 fl 10/20/2018 Cbc With Differential Ord2 Lymph% 16.7 % 10/20/2018 Cbc With Differential Ord2 MCH 30.4 pg 10/20/2018 Cbc With Differential Ord2 [place]% 5.7 % 10/20/2018 Cbc With Differential Ord2 MCHC 33.7 pg 10/20/2018 Cbc With Differential Ord2 Eos% 0.3 % 10/20/2018 Cbc With Differential Ord2 PLT 229 K/ul 10/20/2018 Cbc With Differential Ord2 Baso% 0.1 % 10/20/2018 Cbc With Differential Ord2 RDW 15.7 % 10/20/2018 Cbc With Differential Ord2 Neut ABS# 7.81 K/ul 10/20/2018 Cbc With Differential Ord2 Lymph ABS# 1.69 K/ul 10/20/2018 Cbc With Differential Ord2 [place] ABS# 0.6 K/ul 10/20/2018 Cbc With Differential Ord2 Eos ABS# 0.0 K/ul 10/20/2018 Cbc With Differential Ord2 Baso ABS# 0.0 K/ul 10/20/2018 Comp Metabolic Vfu262 NA 140 mEq/L 10/20/2018 Comp Metabolic Jad930 K 4.0 mEq/L 10/20/2018 Comp Metabolic Hbb420 CL 104 mEq/L 10/20/2018 Comp Metabolic Idr814 CO2 28.0 mEq/L 10/20/2018 Comp Metabolic Jdp290 ANION GAP 12 10/20/2018 Comp Metabolic Eeg031 GLUCOSE 113 mg/dL 10/20/2018 Comp Metabolic Zaz689 Creat 1.0 mg/dL 10/20/2018 Comp Metabolic Bcs560 eGFR 75 ml/min/1.73m2 10/20/2018 Comp Metabolic Myv624 BUN 18 mg/dL 10/20/2018 Comp Metabolic Gik876 B/C Ratio 17.8 Ratio 10/20/2018 Comp Metabolic Trr133 CALCIUM 9.8 mg/dL 10/20/2018 Comp Metabolic Nns799 ALK PHOS 70 U/L 10/20/2018 Comp Metabolic Tgw935 AST(SGOT) 15 U/L 10/20/2018 Comp Metabolic Whj560 ALT(SGPT) 18 U/L 10/20/2018 Comp Metabolic Moi818 BILI T 1.1 mg/dL 10/20/2018 Comp Metabolic Ynx088 ALBUMIN 4.4 g/dL 10/20/2018 Comp Metabolic Eul774 TPRO 6.9 g/dL 10/20/2018 Comp Metabolic Qwr526 GLOB 2.5 g/dL 10/20/2018 Comp Metabolic Rjl458 A/G Ratio 1.7 Ratio 10/20/2018 Comp Metabolic Qtc766 Osmo 282 mOsmo 10/20/2018 Urinalysis Ord28 U-Color [...] 29.0 pg 07/14/2018 Cbc With Differential Ord2 [place]% 7.5 % 07/14/2018 Cbc With Differential Ord2 MCHC 32.5 pg 07/14/2018 Cbc With Differential Ord2 Eos% 4.2 % 07/14/2018 Cbc With Differential Ord2 PLT 205 K/ul 07/14/2018 Cbc With Differential Ord2 Baso% 0.4 % 07/14/2018 Cbc With Differential Ord2 RDW 14.5 % 07/14/2018 Cbc With Differential Ord2 Neut ABS# 2.92 K/ul 07/14/2018 Cbc With Differential Ord2 Lymph ABS# 1.92 K/ul 07/14/2018 Cbc With Differential Ord2 [place] ABS# 0.4 K/ul 07/14/2018 Cbc With Differential Ord2 Eos ABS# 0.2 K/ul 07/14/2018 Cbc With Differential Ord2 Baso ABS# 0.0 K/ul 07/14/2018 Renal Odm041 NA 140 mEq/L 07/14/2018 Renal Keh698 K 4.2 mEq/L 07/14/2018 Renal Wrv797 CL 103 mEq/L 07/14/2018 Renal Jaa347 CO2 29.0 mEq/L 07/14/2018 Renal Aor864 ANION GAP 12 07/14/2018 Renal Nhq035 Osmo 280 mOsmo 07/14/2018 Renal Btf145 GLUCOSE 95 mg/dL 07/14/2018 Renal Nen292 BUN 15 mg/dL 07/14/2018 Renal Lua613 Creat 1.2 mg/dL 07/14/2018 Renal Cxp951 eGFR 64 ml/min/1.73m2 07/14/2018 Renal Bkn320 B/C Ratio 12.8 Ratio 07/14/2018 Renal Jhn560 CALCIUM 9.6 mg/dL 07/14/2018 Renal Kdc376 PHOS 3.2 mg/dL 07/14/2018 Renal Suw058 ALBUMIN 4.4 g/dL 07/14/2018 Magnesium Ord90 Mag 1.9 mg/dL 06/08/2018 Cbc With Differential Ord2 WBC 6.19 K/ul 06/08/2018 Cbc With Differential Ord2 RBC 4.31 M/ul 06/08/2018 Cbc With Differential Ord2 HGB 12.8 g/dl 06/08/2018 Cbc With Differential Ord2 HCT 38.9 % 06/08/2018 Cbc With Differential Ord2 Neut% 53.9 % 06/08/2018 Cbc With Differential Ord2 MCV 90.3 fl 06/08/2018 Cbc With Differential Ord2 Lymph% 34.6 % 06/08/2018 Cbc With Differential Ord2 MCH 29.7 pg 06/08/2018 Cbc With Differential Ord2 [place]% 8.7 % 06/08/2018 Cbc With Differential Ord2 MCHC 32.9 pg 06/08/2018 Cbc With Differential Ord2 Eos% 2.6 % 06/08/2018 Cbc With Differential Ord2 PLT 257 K/ul 06/08/2018 Cbc With Differential Ord2 Baso% 0.2 % 06/08/2018 Cbc With Differential Ord2 RDW 14.3 % 06/08/2018 Cbc With Differential Ord2 Neut ABS# 3.34 K/ul 06/08/2018 Cbc With Differential Ord2 Lymph ABS# 2.14 K/ul 06/08/2018 Cbc With Differential Ord2 [place] ABS# 0.5 K/ul 06/08/2018 Cbc With Differential Ord2 Eos ABS# 0.2 K/ul 06/08/2018 Cbc With Differential Ord2 Baso ABS# 0.0 K/ul 06/08/2018 Comp Metabolic Ihe986 NA 139 mEq/L 06/08/2018 Comp Metabolic Kyi899 K 4.6 mEq/L 06/08/2018 Comp Metabolic Ews738 CL 105 mEq/L 06/08/2018 Comp Metabolic Yvv288 CO2 26.0 mEq/L 06/08/2018 Comp Metabolic Kgn724 ANION GAP 13 06/08/2018 Comp Metabolic Nzk731 GLUCOSE 95 mg/dL 06/08/2018 Comp Metabolic Pfd291 Creat 1.2 mg/dL 06/08/2018 Comp Metabolic Ckk645 eGFR 59 ml/min/1.73m2 06/08/2018 Comp Metabolic Ttf270 BUN 12 mg/dL 06/08/2018 Comp Metabolic Qui330 B/C Ratio 9.7 Ratio 06/08/2018 Comp Metabolic Tsr164 CALCIUM 9.9 mg/dL 06/08/2018 Comp Metabolic Wgm138 ALK PHOS 70 U/L 06/08/2018 Comp Metabolic Icv898 AST(SGOT) 21 U/L 06/08/2018 Comp Metabolic Lyb740 ALT(SGPT) 20 U/L 06/08/2018 Comp Metabolic Atu747 BILI T 1.0 mg/dL 06/08/2018 Comp Metabolic Vba406 ALBUMIN 4.5 g/dL 06/08/2018 Comp Metabolic Fdv639 TPRO 7.2 g/dL 06/08/2018 Comp Metabolic Pie255 GLOB 2.8 g/dL 06/08/2018 Comp Metabolic Fbc655 A/G Ratio 1.6 Ratio 06/08/2018 Comp Metabolic Hji707 Osmo 277 mOsmo 06/08/2018 Cbc With Differential [...] 30.6 pg 05/10/2018 Cbc With Differential Ord2 [place]% 6.5 % 05/10/2018 Cbc With Differential Ord2 [...] 1.94 K/ul 05/10/2018 Cbc With Differential Ord2 [place] ABS# 0.4 K/ul 05/10/2018 Cbc With Differential [...] Ord30 C/HDL 4.2 Ratio 01/26/2018 Comp Metabolic Ppw256 NA 138 mEq/L 01/26/2018 Comp Metabolic Ymq748 K 4.2 mEq/L 01/26/2018 Comp Metabolic Hhi904 CL 105 mEq/L 01/26/2018 Comp Metabolic Jmi971 CO2 23.0 mEq/L 01/26/2018 Comp Metabolic Xjp459 ANION GAP 14 01/26/2018 Comp Metabolic Hba221 GLUCOSE 89 mg/dL 01/26/2018 Comp Metabolic Ahm883 Creat 1.1 mg/dL 01/26/2018 Comp Metabolic Evo947 eGFR 70 ml/min/1.73m2 01/26/2018 Comp Metabolic Rvu107 BUN 18 mg/dL 01/26/2018 Comp Metabolic Fhj733 B/C Ratio 16.8 Ratio 01/26/2018 Comp Metabolic Ygn565 CALCIUM 9.2 mg/dL 01/26/2018 Comp Metabolic Yzf250 ALK PHOS 67 U/L 01/26/2018 Comp Metabolic Ufn454 AST(SGOT) 31 U/L 01/26/2018 Comp Metabolic Twm375 ALT(SGPT) 23 U/L 01/26/2018 Comp Metabolic Okm972 BILI T 1.7 mg/dL 01/26/2018 Comp Metabolic Ixx074 ALBUMIN 3.9 g/dL 01/26/2018 Comp Metabolic Zbg760 TPRO 6.7 g/dL 01/26/2018 Comp Metabolic Hwz587 GLOB 2.8 g/dL 01/26/2018 Comp Metabolic Rdq562 A/G Ratio 1.4 Ratio 01/26/2018 Comp Metabolic Ivz602 Osmo 277 mOsmo 01/26/2018 Cbc With Differential Ord2 WBC 6.64 K/ul 01/26/2018 Cbc With Differential Ord2 RBC 4.75 M/ul 01/26/2018 Cbc With Differential Ord2 HGB 14.6 g/dl 01/26/2018 Cbc With Differential Ord2 HCT 43.1 % 01/26/2018 Cbc With Differential Ord2 Neut% 54.3 % 01/26/2018 Cbc With Differential Ord2 MCV 90.7 fl 01/26/2018 Cbc With Differential Ord2 Lymph% 36.1 % 01/26/2018 Cbc With Differential Ord2 MCH 30.7 pg 01/26/2018 Cbc With Differential Ord2 [place]% 7.1 % 01/26/2018 Cbc With Differential Ord2 MCHC 33.9 pg 01/26/2018 Cbc With Differential Ord2 Eos% 2.3 % 01/26/2018 Cbc With Differential Ord2 PLT 217 K/ul 01/26/2018 Cbc With Differential Ord2 Baso% 0.2 % 01/26/2018 Cbc With Differential Ord2 RDW 15.1 % 01/26/2018 Cbc With Differential Ord2 Neut ABS# 3.61 K/ul 01/26/2018 Cbc With Differential Ord2 Lymph ABS# 2.40 K/ul 01/26/2018 Cbc With Differential Ord2 [place] ABS# 0.5 K/ul 01/26/2018 Cbc With Differential Ord2 Eos ABS# 0.2 K/ul 01/26/2018 Cbc With Differential Ord2 Baso ABS# 0.0 K/ul 01/26/2018 Tsh Ord6 TSH (3rd IS) 1.81 uIU/mL 01/26/2018 Testosterone Dhg881 Testo 370.3 ng/dL 01/26/2018 C A/B FLU 6503040 Influenza A Scr Negative 12/08/2017 C A/B FLU [id number] Influenza B Scr Negative 12/08/2017 C A/B FLU [id number] Influenza Intrp B AG: PRID:PT:NOSE:NOM:IF See Footnote [...] 58.4 % 04/11/2017 Cbc With Differential Ord2 MCV 89.6 fl 04/11/2017 Cbc With Differential Ord2 Lymph% 30.3 % 04/11/2017 Cbc With Differential Ord2 MCH 30.8 pg 04/11/2017 Cbc With Differential Ord2 [place]% 8.1 % 04/11/2017 Cbc With Differential Ord2 MCHC 34.4 pg 04/11/2017 Cbc With Differential Ord2 Eos% 3.0 % 04/11/2017 Cbc With Differential Ord2 PLT 183 K/ul 04/11/2017 Cbc With Differential Ord2 Baso% 0.2 % 04/11/2017 Cbc With Differential Ord2 RDW 15.3 % 04/11/2017 Cbc With Differential Ord2 Neut ABS# 3.69 K/ul 04/11/2017 Cbc With Differential Ord2 Lymph ABS# 1.91 K/ul 04/11/2017 Cbc With Differential Ord2 [place] ABS# 0.5 K/ul 04/11/2017 Cbc With Differential Ord2 Eos ABS# 0.2 K/ul 04/11/2017 Cbc With Differential Ord2 Baso ABS# 0.0 K/ul 04/11/2017 Comp Metabolic [id number] NA 140 mEq/L 04/11/2017 Comp Metabolic [id number] K 4.1 mEq/L 04/11/2017 Comp Metabolic Eml309 CL 105 mEq/L 04/11/2017 Comp Metabolic Viy928 CO2 26.0 mEq/L 04/11/2017 Comp Metabolic Rpb956 ANION GAP 13 04/11/2017 Comp Metabolic Wgx265 GLUCOSE 88 mg/dL 04/11/2017 Comp Metabolic Hpb768 Creat 1.1 mg/dL 04/11/2017 Comp Metabolic Afz813 eGFR 66 ml/min/1.73m2 04/11/2017 Comp Metabolic Ovz670 BUN 18 mg/dL 04/11/2017 Comp Metabolic Pge432 B/C Ratio 15.9 Ratio 04/11/2017 Comp Metabolic Xnr745 CALCIUM 9.0 mg/dL 04/11/2017 Comp Metabolic Xlc464 ALK PHOS 72 U/L 04/11/2017 Comp Metabolic Hst982 AST(SGOT) 22 U/L 04/11/2017 Comp Metabolic Qcp669 ALT(SGPT) 26 U/L 04/11/2017 Comp Metabolic Ijm898 BILI T 1.0 mg/dL 04/11/2017 Comp Metabolic Xia529 ALBUMIN 4.0 g/dL 04/11/2017 Comp Metabolic Iid003 TPRO 6.4 g/dL 04/11/2017 Comp Metabolic Fpo093 GLOB 2.4 g/dL 04/11/2017 Comp Metabolic Cst416 A/G Ratio 1.6 Ratio 04/11/2017 Comp Metabolic Kje483 Osmo 281 mOsmo 04/11/2017 Vitamin D 25 Oh Yha1934 VITAMIN D, 25 HYDROXY 65.52 ng/mL Cbc [...] 28.5 pg 05/18/2016 Cbc With Differential Ord2 [place]% 7.2 % 05/18/2016 Cbc With Differential Ord2 MCHC 33.5 pg 05/18/2016 Cbc With Differential Ord2 Eos% 3.1 % 05/18/2016 Cbc With Differential Ord2 PLT 222 K/ul 05/18/2016 Cbc With Differential Ord2 Baso% 0.2 % 05/18/2016 Cbc With Differential Ord2 RDW 15.8 % 05/18/2016 Cbc With Differential Ord2 Neut ABS# 3.40 K/ul 05/18/2016 Cbc With Differential Ord2 Lymph ABS# 1.80 K/ul 05/18/2016 Cbc With Differential Ord2 [place] ABS# 0.4 K/ul 05/18/2016 Cbc With Differential Ord2 Eos ABS# 0.2 K/ul 05/18/2016 Cbc With Differential Ord2 Baso ABS# 0.0 K/ul 05/18/2016 Magnesium Ord90 Mag 2.0 mg/dL 05/18/2016 Renal Ziy960 NA 139 mEq/L 05/18/2016 Renal Qch868 K 4.0 mEq/L 05/18/2016 Renal Ujv243 CL 104 mEq/L 05/18/2016 Renal Wlq413 CO2 27.0 mEq/L 05/18/2016 Renal Dpr113 ANION GAP 12 05/18/2016 Renal Khu906 Osmo 279 mOsmo 05/18/2016 Renal Rrh329 GLUCOSE 91 mg/dL 05/18/2016 Renal Ton695 BUN 18 mg/dL 05/18/2016 Renal Jir766 Creat 1.3 mg/dL 05/18/2016 Renal Ktx930 eGFR 59 ml/min/1.73m2 05/18/2016 Renal Eya016 B/C Ratio 14.3 Ratio 05/18/2016 Renal Lds328 CALCIUM 9.3 mg/dL 05/18/2016 Renal Bjq729 PHOS 3.2 mg/dL 05/18/2016 Renal Cpc259 ALBUMIN 4.2 g/dL 05/18/2016 Random Urine Protein/Creatinine Ratio Jmt2400 U Prot 15.0 mg/dl 05/18/2016 Random Urine Protein/Creatinine Ratio Wlx7387 U CREAT 141.0 mg/dL 05/18/2016 Random Urine Protein/Creatinine Ratio Lrv0881 R MTP/Creat Ratio 0.11 05/18/2016 Urinalysis Ord28 [...] 13.4 g/dl 02/19/2016 Cbc With Differential Ord2 HCT 40.4 % 02/19/2016 Cbc With Differential Ord2 Neut% 51.9 % 02/19/2016 Cbc With Differential Ord2 MCV 85.8 fl 02/19/2016 Cbc With Differential Ord2 Lymph% 34.9 % 02/19/2016 Cbc With Differential Ord2 MCH 28.5 pg 02/19/2016 Cbc With Differential Ord2 [place]% 9.5 % 02/19/2016 Cbc With Differential Ord2 MCHC 33.2 pg 02/19/2016 Cbc With Differential Ord2 Eos% 3.5 % 02/19/2016 Cbc With Differential Ord2 PLT 221 K/ul 02/19/2016 Cbc With Differential Ord2 Baso% 0.2 % 02/19/2016 Cbc With Differential Ord2 RDW 16.4 % 02/19/2016 Cbc With Differential Ord2 Neut ABS# 2.84 K/ul 02/19/2016 Cbc With Differential Ord2 Lymph ABS# 1.91 K/ul 02/19/2016 Cbc With Differential Ord2 [place] ABS# 0.5 K/ul 02/19/2016 Cbc With Differential Ord2 Eos ABS# 0.2 K/ul 02/19/2016 Cbc With Differential Ord2 Baso ABS# 0.0 K/ul 02/19/2016 Cbc With Differential Ord2 New Analyzer Notice Please note new ref ranges starting 10-29-2015 due to implemntation of new five part differential hematolgy analyzer. 02/19/2016 Tsh Ord6 hTSH II 2.10 uIU/mL 02/19/2016 Comp Metabolic Otl768 NA 138 mEq/L 02/19/2016 Comp Metabolic Lxl589 K 3.8 mEq/L 02/19/2016 Comp Metabolic Iwv681 CL 103 mEq/L 02/19/2016 Comp Metabolic Wbf028 CO2 28.0 mEq/L 02/19/2016 Comp Metabolic Koi435 ANION GAP 11 02/19/2016 Comp Metabolic Amf937 GLUCOSE 94 mg/dL 02/19/2016 Comp Metabolic Pxj255 Creat 1.0 mg/dL 02/19/2016 Comp Metabolic Xjt674 eGFR 75 ml/min/1.73m2 02/19/2016 Comp Metabolic Urg169 BUN 18 mg/dL 02/19/2016 Comp Metabolic Lce337 B/C Ratio 17.6 Ratio 02/19/2016 Comp Metabolic Fum447 CALCIUM 9.6 mg/dL 02/19/2016 Comp Metabolic Cvu329 ALK PHOS 93 U/L 02/19/2016 Comp Metabolic Kbp329 AST(SGOT) 23 U/L 02/19/2016 Comp Metabolic Zyu605 ALT(SGPT) 19 U/L 02/19/2016 Comp Metabolic Spk790 BILI T 0.8 mg/dL 02/19/2016 Comp Metabolic Kkc804 ALBUMIN 4.1 g/dL 02/19/2016 Comp Metabolic Jkx983 TPRO 6.8 g/dL 02/19/2016 Comp Metabolic Vdg619 GLOB 2.7 g/dL 02/19/2016 Comp Metabolic Maj362 A/G Ratio 1.5 Ratio 02/19/2016 Comp Metabolic Hcq608 Osmo 277 mOsmo 02/19/2016 Uric Acid Ord77 Uric A 6.0 mg/dL 02/19/2016 Total Psa Ord10 PSA 0.82 ng/mL 02/19/2016 Comp Metabolic Rzm811 NA 140 mEq/L 12/16/2015 Comp Metabolic Ipe474 K 4.0 mEq/L 12/16/2015 Comp Metabolic Iiv129 CL 105 mEq/L 12/16/2015 Comp Metabolic Msl481 CO2 24.0 mEq/L 12/16/2015 Comp Metabolic Oaz552 ANION GAP 15 12/16/2015 Comp Metabolic Emt644 GLUCOSE 85 mg/dL 12/16/2015 Comp Metabolic Vxh995 Creat 1.2 mg/dL 12/16/2015 Comp Metabolic Syu460 eGFR 65 ml/min/1.73m2 12/16/2015 Comp Metabolic Ele749 BUN 14 mg/dL 12/16/2015 Comp Metabolic Lpn520 B/C Ratio 12.1 Ratio 12/16/2015 Comp Metabolic Iwh019 CALCIUM 9.1 mg/dL 12/16/2015 Comp Metabolic Stm718 ALK PHOS 162 U/L 12/16/2015 Comp Metabolic Eat003 AST(SGOT) 14 U/L 12/16/2015 Comp Metabolic Jgk360 ALT(SGPT) 17 U/L 12/16/2015 Comp Metabolic Aet352 BILI T 1.0 mg/dL 12/16/2015 Comp Metabolic Bxn590 ALBUMIN 3.4 g/dL 12/16/2015 Comp Metabolic Zhz188 TPRO 6.2 g/dL 12/16/2015 Comp Metabolic Byg276 GLOB 2.9 g/dL 12/16/2015 Comp Metabolic Pno748 A/G Ratio 1.2 Ratio 12/16/2015 Comp Metabolic Ges219 Osmo 279 mOsmo 12/16/2015 Uric Acid Ord77 Uric A 6.1 mg/dL 12/16/2015 Cbc With Differential Ord2 WBC 5.08 K/ul 12/16/2015 Cbc With Differential Ord2 RBC 3.91 M/ul 12/16/2015 Cbc With Differential Ord2 HGB 11.0 g/dl 12/16/2015 Cbc With Differential Ord2 HCT 34.8 % 12/16/2015 Cbc With Differential Ord2 Neut% 59.3 % 12/16/2015 Cbc With Differential Ord2 MCV 89.0 fl 12/16/2015 Cbc With Differential Ord2 Lymph% 29.9 % 12/16/2015 Cbc With Differential Ord2 [place]% 7.5 % 12/16/2015 Cbc With Differential Ord2 [...] 1.52 K/ul 12/16/2015 Cbc With Differential Ord2 [place] ABS# 0.4 K/ul 12/16/2015 Cbc With Differential [...] C/HDL 4.0 Ratio 07/21/2015 Urine Protein 24Hr Gqf600 U Prot 5.1 mg/dl 05/16/2015 Urine Protein 24Hr Xjv769 U Prot24 71.5 mg/24hr 05/16/2015 Total Volume Urine Cgs194 TV/24hr 1400 ml 05/16/2015 Total Psa Ord10 PSA 0.70 ng/mL 05/15/2015 Renal Ygf877 NA 135 mEq/L 05/15/2015 Renal Joh575 K 3.9 mEq/L 05/15/2015 Renal Emq024 CL 101 mEq/L 05/15/2015 Renal Tok893 CO2 27.0 mEq/L 05/15/2015 Renal Pzw101 ANION GAP 11 05/15/2015 Renal Mvd868 Osmo 274 mOsmo 05/15/2015 Renal Ali182 GLUCOSE 132 mg/dL 05/15/2015 Renal Ctq876 BUN 19 mg/dL 05/15/2015 Renal Sak385 Creat 1.1 mg/dL 05/15/2015 Renal Qju930 eGFR 67 ml/min/1.73m2 05/15/2015 Renal Ozi490 B/C Ratio 17.0 Ratio 05/15/2015 Renal Xcz597 CALCIUM 9.6 mg/dL 05/15/2015 Renal Qui848 PHOS 3.0 mg/dL 05/15/2015 Renal Ukq824 ALBUMIN 4.3 g/dL 05/15/2015 Cbc With Differential [...] of Systems System Result Effective Dates Constitutional fatigue 11/27/2018 Constitutional recent illness 11/27/2018 [...] nourished 12/08/2017 None Full Exam - General 1995 Eyes conjunctiva /eyelids Overall: conjunctiva clear 12/08/2017 None Full Exam - General 1994 Eyes conjunctiva /eyelids Overall: cornea clear 12/08/2017 None Full Exam - General 1994 Eyes conjunctiva /eyelids Overall: eyelids normal 12/08/2017 None Full Exam - General 1994 Ears/Nose/Throat lips/teeth/gingiva Overall: benign lips 12/08/2017 None Full Exam - General 1994 Ears/Nose/Throat oral cavity/pharynx/larynx Overall: oral mucosa clear 12/08/2017 None Full Exam - General 1994 Ears/Nose/Throat oral cavity/pharynx/larynx Posterior Pharynx: clear post [...] clear 10/27/2017 None Full Exam - General 1995 Ears/Nose/Throat oral cavity/pharynx/larynx Overall: hypopharynx benign 10/27/2017 [...] lips 04/26/2017 None Full Exam - General 1994 Ears/Nose/Throat lips/teeth/gingiva Overall: normal dentition 04/26/2017 None [...] clear 10/26/2016 None Full Exam - General 1995 Ears/Nose/Throat otoscopic exam Tympanic membrane: air- fluid level 10/26/2016 None Full Exam - General 1995 Ears/Nose/Throat otoscopic exam Tympanic membrane: tympanosclerosis 10/26/2016 None Full Exam - General 1995 Ears/Nose/Throat lips/teeth/gingiva Overall: benign lips 10/26/2016 None Full Exam - General 1994 Ears/Nose/Throat lips/teeth/gingiva Overall: normal dentition 10/26/2016 None Full Exam - General 1994 Ears/Nose/Throat oral cavity/pharynx/larynx Overall: oral mucosa clear 10/26/2016 None Full Exam - General 1995 Ears/Nose/Throat oral cavity/pharynx/larynx Overall: oropharyngeal mucosa clear 10/26/2016 None Full Exam - General 1995 Ears/Nose/Throat oral cavity/pharynx/larynx Overall: hypopharynx benign 10/26/2016 None Full Exam - General 1995 Ears/Nose/Throat oral cavity/pharynx/larynx Overall: no masses 10/26/2016 [...] Formatting Model/CDA Sections, Assigned to/Sharee Ramirez CPT-4: [id number] 07/05/2018 THER/PROPH/DIAG INJ SC/IM CPT-4: 91110 06/12/2018 TRIAMCINOLONE ACET INJ NOS CPT-4: J3301 06/12/2018 PPPS, SUBSEQ VISIT CPT -4: G0439 08/03/2017 ADMIN INFLUENZA VIRUS VAC CPT-4: G0008 06/28/2016 FLU VACC PRSV FREE INC ANTIG CPT-4: 13783 06/28/2016 TENIVAC TD VACCINE NO PRSRV 7/> IM CPT-4: 02732 06/28/2016 OCCULT BLOOD FECES CPT -4: 62479 02/19/2015 Vital Signs Date Vital 11/27/2018 Blood Pressure 1: 110/70 Code : 8480-6 BMI: 28.5 Code : 50645-0 Heart Rate 1 : 90 bpm Height: 6' SpO2: 95% Temperature: 36.8 (C) / 98.2 (F) Weight: 210 lbs 8 oz 09/26/2018 Blood Pressure 1: 130/80 Code : 8480-6 BMI: 29.6 Code : 78428-4 Heart Rate 1 : 98 bpm Height: 6' SpO2: 93% Weight: 218 lbs 08/10/2018 BMI: 29.4 Code: 73595-2 Height: 6' Weight: 217 lbs 07/26/2018 Blood Pressure 1: 116/72 Code : 8480-6 BMI: 29.4 Code : 18327-4 Heart Rate 1 : 102 bpm Height: 6' SpO2: 96% Weight: 217 lbs 07/05/2018 Blood Pressure 1: 132/72 Code : 8480-6 Heart Rate 1: 60 bpm SpO2: 95% 06/12/2018 Blood Pressure 1: 120/78 Code : 8480-6 BMI: 29.6 Code : 28759-0 Heart Rate 1 : 103 bpm Height: 6' SpO2: 96% Weight: 218 lbs 05/10/2018 Blood Pressure 1: 114/68 Code : 8480-6 BMI: 29.4 Code : 94734-6 Heart Rate 1 : 92 bpm Height: 6' SpO2: 97% Weight: 217 lbs 03/27/2018 Blood Pressure 1: 126/74 Code : 8480-6 BMI: 30.1 Code : 71727-2 Heart Rate 1 : 103 bpm Height: 6' SpO2: 96% Weight: 222 lbs 01/25/2018 Blood Pressure 1: 122/70 Code : 8480-6 Blood Pressure 2: 126/73 Code: 8480-6 Heart Rate 1: 63 bpm SpO2: 94% 01/24/2018 Blood Pressure 1: 11072 Code : 8480-6 BMI: 29.7 Code : 84735-8 Heart Rate 1 : 88 bpm Height: 6' SpO2: 95% Weight: 219 lbs 12/08/2017 Blood Pressure 1: 120/68 Code : 8480-6 BMI: 30.0 Code : 98493-5 Heart Rate 1 : 91 bpm Height: 6' SpO2: 96% Temperature: 36.7 (C) / 98.1 (F) Weight: 221 lbs 10/27/2017 Blood Pressure 1: 124/76 Code : 8480-6 BMI: 30.1 Code : 18281-1 Heart Rate 1 : 69 bpm Height: 6' SpO2: 95% Weight: 222 lbs 09/29/2017 Blood Pressure 1: 118/66 Code : 8480-6 BMI: 29.9 Code : 76170-3 Heart Rate 1 : 81 bpm Height: 6' SpO2: 95% Weight: 220 lbs 8 oz 09/01/2017 Blood Pressure 1: 122/82 Code : 8480-6 BMI: 29.6 Code : 23879-9 Heart Rate 1 : 75 bpm Height: 6' SpO2: 97% Weight: 218 lbs 08/03/2017 Blood Pressure 1: 120/68 Code : 8480-6 Heart Rate 1: 68 bpm Height: 6' SpO2: 94% Waist Measure (cm): 97 cm 04/26/2017 Blood Pressure 1: 122/72 Code : 8480-6 BMI: 29.4 Code : 07802-9 Heart Rate 1 : 85 bpm Height: 6' SpO2: 92% Weight: 217 lbs 01/25/2017 Blood Pressure 1: 118/78 Code : 8480-6 BMI: 29.4 Code : 95396-8 Heart Rate 1 : 72 bpm Height: 6' SpO2: 94% Temperature: 36.9 (C) / 98.5 (F) Weight: 217 lbs 10/26/2016 Blood Pressure 1: 152/86 Code : 8480-6 BMI: 29.7 Code : 16187-9 Heart Rate 1 : 58 bpm Height: 6' Weight: 219 lbs 09/27/2016 Blood Pressure 1: 138/80 Code : 8480-6 BMI: 29.4 Code : 13906-0 Heart Rate 1 : 52 bpm Height: 6' SpO2: 98% Weight: 217 lbs 06/28/2016 Blood Pressure 1: 128/86 Code : 8480-6 BMI: 29.6 Code : 78577-1 Heart Rate 1 : 69 bpm Height: 6' SpO2: 93% Weight: 218 lbs 04/27/2016 Blood Pressure 1: 118/82 Code : 8480-6 BMI: 29.3 Code : 86041-5 Heart Rate 1 : 85 bpm Height: 6' SpO2: 98% Weight: 216 lbs 02/17/2016 Blood Pressure 1: 132/80 Code : 8480-6 BMI: 28.8 Code : 11289-5 Heart Rate 1 : 94 bpm Height: 6' SpO2: 98% Weight: 212 lbs 01/20/2016 Blood Pressure 1: 120/70 Code : 8480-6 BMI: 29.7 Code : 21350-9 Heart Rate 1 : 87 bpm Height: 6' SpO2: 92% Weight: 219 lbs 01/06/2016 Blood Pressure 1: 122/88 Code : 8480-6 BMI: 28.8 Code : 95295-1 Heart Rate 1 : 83 bpm Height: 6' SpO2: 97% Weight: 212 lbs 12/16/2015 Blood Pressure 1: 98/62 Code : 8480-6 Heart Rate 1: 62 bpm Height: 6' SpO2: 90% Weight: 11/27/2015 Blood Pressure 1: 90/64 Code : 8480-6 Blood Pressure 1: 110/80 Code: 8480-6 Heart Rate 1: 91 bpm Height: 6' SpO2: 92% Weight: 07/30/2015 Blood Pressure 1: 112/82 Code : 8480-6 BMI: 30.5 Code : 20774-7 Heart Rate 1 : 82 bpm Height: 6' SpO2: 92% Weight: 225 lbs 06/09/2015 Blood Pressure 1: 130/76 Code : 8480-6 BMI: 31.1 Code : 41717-7 Heart Rate 1 : 65 bpm Height: 6' SpO2: 96% Weight: 229 lbs 04/29/2015 Blood Pressure 1: 118/78 Code : 8480-6 BMI: 30.7 Code : 13475-7 Heart Rate 1 : 70 bpm Height: 6' Weight: 226 lbs 02/19/2015 Blood Pressure 1: 118/70 Code : 8480-6 BMI: 29.7 Code : 79378-6 Heart Rate 1 : 68 bpm Height: 6' Weight: 219 lbs Functional Status No Functional Status data History of Present Illness Symptom Name Status Result Effective Date Notes Limitation on Activities moderately limits activities 11/27/2018 [...] that it is in conjuction with Dr. Tamara kearns - sinus congestion Location frontal sinuses 12/08/2017 [...] Directive data Encounters Encounter Performer Location Codes Date ([id number]) 03030 EST. PATIENT, LEVEL IV Diagnosis: Shortness of breath[ICD10: R06.02] Diagnosis: Dizziness and giddiness[ICD10: R42] Diagnosis: Other fatigue[ICD10: R53.83] Diagnosis: Essential (primary) hypertension[ICD10: I10] Diagnosis: Muscle weakness (generalized)[ICD10: M62.81] Merline Butcher MD, [facility] CPT-4: 41332 11/27/2018 ([id number]) 58126 EST. PATIENT, LEVEL IV Diagnosis: Essential (primary) hypertension[ICD10: I10] Diagnosis: Vertigo of central origin, right ear[ICD10: H81.41] Diagnosis: Low back pain[ICD10: M54.5] Lesley Butcher MD [facility] CPT- 4: 72798 09/26/2018 ([id number]) 96106 EST. PATIENT, LEVEL III Diagnosis: Dizziness and giddiness[ICD10: R42] Diagnosis: Vertigo of central origin, right ear[ICD10: H81.41] Diagnosis: Essential (primary) hypertension[ICD10: I10] Lesley Butcher MD [facility] CPT-4: 97799 07/26/2018 ([id number]) 07187 EST. PATIENT, LEVEL III Diagnosis: Essential (primary) hypertension[ICD10: I10] Lesley Butcher MD [facility] CPT-4: 95349 06/12/2018 ([id number]) 60473 EST. PATIENT, LEVEL IV Diagnosis: Other iron deficiency anemias[ICD10: D50.8] Diagnosis: Weakness[ICD10: R53.1] Diagnosis: Diverticulosis of large intestine without perforation or abscess with bleeding[ICD10: K57.31] Lesley Butcher MD [facility] CPT-4: 40936 05/10/2018 ([id number]) 14593 EST. 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 PATIENT, LEVEL IV Diagnosis: Essential (primary) hypertension[ICD10: I10] Diagnosis: Sensorineural hearing loss, bilateral[ICD10: H90.3] Diagnosis: Mixed hyperlipidemia[ICD10: E78.2] Diagnosis: Major depressive disorder, recurrent, mild[ICD10: F33.0] Lesley Butcher MD [facility] CPT-4: 76110 01/24/2018 85058 EST. PATIENT, LEVEL IV Diagnosis: Other malaise[ICD10: R53.81] Diagnosis: Fever, unspecified[ICD10: R50.9] Mady Butcher MD, [facility] CPT- 4: 69085 12/08/2017 ([id number]) 88662 EST. PATIENT, LEVEL III Diagnosis: Essential (primary) hypertension[ICD10: I10] Lesley Butcher MD [facility] CPT-4: 74098 10/27/2017 ([id number]) 83236 EST. PATIENT, LEVEL III Diagnosis: Benign prostatic hyperplasia with lower urinary tract symptoms[ICD10 : N40.1] Diagnosis: Dysphagia, pharyngeal phase[ICD10: R13.13] Lesley Butcher MD, [facility] CPT-4: 30835 09/29/2017 ([id number]) 98624 EST. PATIENT, LEVEL IV Diagnosis: Essential (primary) hypertension[ICD10: I10] Diagnosis: Major depressive disorder, recurrent, mild[ICD10: F33.0] Diagnosis: Sensorineural hearing loss, bilateral[ICD10: H90.3] Lesley Butcher MD, [facility] CPT-4: 01477 09/01/2017 ([id number]) 07244 EST. PATIENT, LEVEL IV Diagnosis: Essential (primary) hypertension[ICD10: I10] Diagnosis: Major depressive disorder, recurrent, mild[ICD10: F33.0] Diagnosis: Mixed hyperlipidemia[ICD10: E78.2] Lesley Butcher MD [facility] CPT-4: 09461 04/26/2017 ([id number]) 35921 EST. PATIENT, LEVEL IV Diagnosis: Essential (primary) hypertension[ICD10: I10] Diagnosis: Major depressive disorder, recurrent, mild[ICD10: F33.0] Diagnosis: Urge incontinence[ICD10: N39.41] Lesley Butcher MD [facility] CPT-4: 67562 01/25/2017 ([id number]) 18094 EST. PATIENT, LEVEL IV Diagnosis: Essential (primary) hypertension[ICD10: I10] Diagnosis: Major depressive disorder, recurrent, mild[ICD10: F33.0] Diagnosis: Urge incontinence[ICD10: N39.41] Lesley Butcher MD, [facility] CPT-4: 84414 10/26/2016 [id number] 74081 EST. PATIENT, LEVEL III Diagnosis: Essential (primary) hypertension[ICD10: I10] Diagnosis: Major depressive disorder, recurrent, mild[ICD10: F33.0] Diagnosis: Urge incontinence[ICD10: N39.41] Lesley Butcher MD, [facility] CPT-4: 27624 09/27/2016 [id number]) 16480 EST. PATIENT, LEVEL IV Diagnosis: Essential (primary) hypertension[ICD10: I10] Diagnosis: Encounter for immunization[ICD10: Z23] Diagnosis: Laceration without foreign body of left forearm, initial encounter[ ICD10: S51.812A] Diagnosis: Laceration without foreign body of right forearm, initial encounter[ ICD10: S51.811A] Diagnosis: Major depressive disorder, recurrent, mild[ICD10: F33.0] Lesley Butcher MD, [facility] CPT-4: 80037 06/28/2016 [id number]) 06425 EST. PATIENT, LEVEL IV Diagnosis: Essential (primary) hypertension[ICD10: I10] Diagnosis: Idiopathic gout, left ankle and foot[ICD10: M10.072] Diagnosis: Other iron deficiency anemias[ICD10: D50.8] Lesley Butcher MD, [facility] CPT-4: 91473 04/27/2016 ([id number]) 88762 EST. PATIENT, LEVEL V Diagnosis: Essential (primary) hypertension[ICD10: I10] Diagnosis: Major depressive disorder, recurrent, mild[ICD10: F33.0] Diagnosis: Idiopathic gout, left ankle and foot[ICD10: M10.072] Diagnosis: Mixed hyperlipidemia[ICD10: E78.2] Lesley Butcher MD, [facility] CPT-4: 88811 02/17/2016 [id number] 37602 EST. PATIENT, LEVEL IV Diagnosis: Idiopathic gout, left ankle and foot[ICD10: M10.072] Diagnosis: Major depressive disorder, single episode, unspecified[ICD10: F32.9] Diagnosis: Localized edema[ICD10: R60.0] Merline Butcher MD, [facility] CPT-4: 82666 01/20/2016 15766 EST. PATIENT, LEVEL IV Diagnosis: Idiopathic gout, left ankle and foot[ICD10: M10.072] Diagnosis: Essential (primary) hypertension[ICD10: I10] Diagnosis: Major depressive disorder, single episode, unspecified[ICD10: F32.9] Lesley Butcher MD, [facility] CPT-4: 34683 01/06/2016 28200 EST. PATIENT, LEVEL IV Diagnosis: Weakness[ICD10: R53.1] Diagnosis: Gout, unspecified[ICD10: M10.9] Diagnosis: Hypotension, unspecified[ICD10: I95.9] Lesley Butcher MD, [facility] CPT-4: 33989 12/16/2015 ([id number]) Patient admitted to the hospital from clinic (NO CHARGE) Diagnosis: Hypoxemia[ICD10: R09.02] Diagnosis: Weakness[ICD10: R53.1] Diagnosis: Dyspnea, unspecified[ICD10: R06.00] Mady Butcher MD, [facility] CPT-4: 38756B 11/27/2015 ([id number]) 23997 EST. PATIENT, LEVEL III Diagnosis: Essential (primary) hypertension[ICD10: I10] Diagnosis: Gastro-esophageal reflux disease without esophagitis[ICD10: K21.9] Lesley Butcher MD, [facility] CPT-4: 23078 07/30/2015 ([id number]) 46900 EST. PATIENT, LEVEL III Diagnosis: ESSENTIAL HYPERTENSION[ICD9: 401.9] Merline Butcher MD, [facility] CPT-4: 15958 06/09/2015 ([id number]) 80336 EST. PATIENT, LEVEL III Diagnosis: ESSENTIAL HYPERTENSION[ICD9: 401.9] Lesley Butcher MD, [facility] CPT-4: 91584 04/29/2015 ([id number]) OFFICE/OUTPATIENT VISIT NEW Diagnosis: ESSENTIAL HYPERTENSION[ICD9: 401.9] Diagnosis: DEPRESSIVE DISORDER NEC[ICD9: 311] Diagnosis: Enlarged prostate[ICD9: 600.00] Diagnosis: Nasal inflammation due to allergen[ICD9: 477.9] [facility] CPT-4: 24604 02/19/2015 Plan of Care Planned Activity Notes Codes Status Date Visit Plan: TUF-juevtwl-fslwmrotm of breath -patient reports worsening of chronic symptoms -will check EKG and cardiac enzymes to evaluate for acute changes -recommend patient follow up with his poiser, Dr Stokes -patient, and daughter verbalized understanding of plan. Generalized weakness-discussed PT referral after cleared by cardiology -patient' s will call us when she wants to have it set up HTN-no change but monitor at home 11/27/2018 Patient Education: Patient Medication Summary Completed [...] cryotherapy sessions. 09/26/2018 Appointment: Lesley Butcher WPtel: [facility] (15 min) Moderate 09/26/2018 Patient Education: Patient [...] care surrogate. 08/10/2018 Appointment: Mady Dunne WPtel: [facility] [facility] - Annual Wellness Visit 08/10/2018 Patient Education: Patient Medication Summary Completed 08/10/2018 Visit Plan: Vertigo - vestibular/cochlearVestibular therapy with Allan Angelhlman. Hypertension - well controlled - continue with current medications, continue with no added salt diet. Pt has been encouraged to exercise daily. The pt has been advised to call the office if there are any acute concerns about change in blood pressure readings at home. 07/26/2018 Appointment: Lesley Butcher WPtel: Former[facility] named [facility] (15 min) Moderate 07/26/2018 Patient Education: Patient [...] his dexamethasone. 06/12/2018 Appointment: Lesley Butcher WPtel: Formerly named [facility] (15 min) Moderate 06/12/2018 Patient Education: Patient Medication Summary Completed 06/12/2018 Visit Plan: Diverticulosis with recent GI bleeding - improved - continue with supportive care, avoid foods which cause any abdominal pain - monitor symptoms - call if any pain or bleeding recurs. Anemia - check labs today. Weakness - continue with increasing of activity. 05/10/2018 Appointment: Lesley Butcher WPtel: Formerly named [facility] (30 min) Complex 05/10/2018 Patient Education: Patient [...] implant. 03/27/2018 Appointment: Lesley Butcher WPtel: [phone] [facility] (15 min) Moderate 03/27/2018 Patient Education: Patient [...] to medications. 01/24/2018 Appointment: Lesley Butcher WPtel: Formerly named [facility] (15 min) Moderate 01/24/2018 Patient Education: Patient Medication Summary Completed 01/24/2018 Visit Plan: Influenza - pt started on tamiflu - pt to start on anti-inflammatories, tylenol and monitor symptoms. Pt to call if not improving. Pt to alert any close contacts as to illness. 12/08/2017 Appointment: Mady Dunne WPtel: Formerly named [facility] (30 min) Complex 12/08/2017 Patient Education: Patient Medication Summary Completed 12/08/2017 Visit Plan: Hypertension - well controlled - continue with current medications, continue with no added salt diet. Pt has been encouraged to exercise daily. The pt has been advised to call the office if there are any acute concerns about change in blood pressure readings at home. 10/27/2017 Appointment: Lesley Butcher WPtel: [phone] [facility] (15 min) Moderate 10/27/2017 Patient Education: Patient Medication Summary Completed 10/27/2017 Referral: External, Ordering Provider Referral Initiated 10/12/2017 Visit Plan: BPH - continue with dutasteride and flomax Dysphagia - referral to Dr. Kumar for EGD - question stricture - dysphagia intermittently - hx of stricture. 09/29/2017 Appointment: Lesley Butcher WPtel: [phone] [facility] (15 min) Moderate 09/29/2017 Patient Education: Patient Medication Summary Completed 09/29/2017 Care Plan: Referral Order SNOMED-CT : [id number] Pending 09/29/2017 Visit Plan: Hypertension - well [...] recommended patient to have an evaluation at [facility] to see if he has potential for cochlear implant. 09/01/2017 Appointment: Lesley Butcher WPtel: [phone] [facility] [place] (15 min) Moderate 09/01/2017 Patient Education: Patient Medication Summary Completed 09/01/2017 Care Plan: Referral Order SNOMED-CT : 840978587 Pending 09/01/2017 Visit Plan: Medicare Exam - [...] care surrogate. 08/03/2017 Appointment: M[facility] Dunne [facility]Ptel[phone] [facility] [facility] - Welcome to Medicare visit 08/03/2017 Patient [...] medications. 04/26/2017 Appointment: Lesley Butcher WPtel: [phone] [facility] (15 min) Moderate 04/26/2017 Patient Education: Patient [...] of oxybutynin to 10mg daily. 01/25/2017 Appointment: Les[facility] Butcher WPtel: [phone] [facility] (30 min) Complex 01/25/2017 Patient Education: Patient [...] det[place] 10/26/2016 Appointment: Lesley Butcher WPtel: Former[facility] (15 min) Moderate 10/26/2016 Patient Education: Patient [...] retention occur. 09/27/2016 Appointment: Lesley Butcher WPtel: [phone] [facility] (15 min) Moderate 09/27/2016 Patient Education: Patient [...] shot today agree with appt with shelli khalilter 06/28/2016 Appointment: Lesley Butcher WPtel: [phone] [facility] [place] (15 min) Moderate 06/28/2016 Patient Education: Patient [...] eye drops-angela Vang-increase dexamethasone x 1 month 02/17/2016 Visit Plan: [...] and plan. 02/17/2016 Appointment: Merline Rose WPtel: [address] [place], [place] [id number] (30 min) Complex 02/17/2016 Patient Education: Patient [...] clinic with any questions or concerns. 12/16/2015 Visit Plan: Left foot pain - [...] exam, and the assessment and plan. 12/16/2015 Appointment: (30 min) Complex 12/16/2015 Patient Education: Patient Medication Summary Completed 12/16/2015 Appointment: Lesley Butcher WPtel: [phone] [facility] (15 min) Moderate 12/04/2015 Appointment: Lesley Butcher WPtel: [phone] [facility] (15 min) Moderate 12/02/2015 Visit Plan: Admission [...] THE PHARMACY 07/30/2015 Appointment: Lesley Butcher WPtel: [phone] [facility] (15 min) Moderate 07/30/2015 Patient Education: Patient [...] at home. 04/29/2015 Appointment: Lesley Butcher WPtel: [phone] [facility] (15 min) Moderate 04/29/2015 Patient Education: Patient [...] External, Ordering Provider Referral Appointment Requested Referral: [facility] 09/12 Referral info faxed Appointment Requested Referral: [facility] Referral Appointment Requested Instructions Comment . Hypertension - well controlled - continue with current medications, continue with no added salt diet. Pt has been encouraged to exercise daily. The pt has been advised to call the office if there are any acute concerns about change in blood pressure readings at home. change spironolactone to early afternoon hold the plavix 72 hours prior to planned injection in back and call the education program specialist about a biopsy of the lesion on [...] - keep appt with Dr. Montero - okay to hold plavix for 72 hours prior to planned back injection. Skin lesion left lower lip - discussed with patient he needs this lesion biopsied since it has not healed after the last two cryotherapy sessions. CHECK CARDIAC ENYZMES AND EKG . KJP-wfyprhl-bbiqwmxsy of breath -patient reports worsening of chronic symptoms -will check EKG and cardiac enzymes to evaluate for acute changes - recommend patient follow up with his poiser, Dr Stokes -patient, and daughter verbalized understanding of plan. Generalized weakness-discussed PT referral after cleared by cardiology -patient' s will call us when she wants to have it set up HTN-no change but monitor at home . Hypertension - well controlled - continue [...] change in blood pressure readings at home. Vesicare 5mg - take one pill at [...] call if symptoms of urinary retention occur. the light-headedness that you are experiencing is [...] to assure normal liver response to medications. . Admission to Hospital - Dr. Butcher [...] exposure. No change in current medications. . Hypertension - well controlled - continue [...] Hearing loss - improved with cochlear implant. CHECK FASTING LABS DEXAMETHASONE 0.5MG-TAKE A FULL [...] exam, and the assessment and plan. increase citalopram to 40mg daily . Hypertension [...] recommended patient to have an evaluation at [facility] to see if he has potential for cochlear implant. . Hypertension - well controlled - continue [...] Notify clinic with any questions or concerns. increase oxybutynin to 10mg daily. . Hypertension [...] increase dose of oxybutynin to 10mg daily. . Hypertension - [...] GET THE FLU SHOT AT THE PHARMACY . BPH - continue with dutasteride and flomax Dysphagia - referral to Dr. Kumar for EGD - question stricture - dysphagia intermittently - hx of stricture. Do physical therapy once the gout gets [...]
--- OUTSIDE RECORDS SUMMARY | 2018-12-19 12:33 | XMS REPORT | CCD ---
Author Author [facility] Organization [facility] Address [address] [place] [address] Phone Care Team Providers Care Center Sales And Service Associate Name Role Phone PP Unavailable CCM Unavailable Summary Purpose Interface Exchange Insurance Providers Payer name Policy type / Coverage type Covered alliance party ID Effective Begin Date Effective End Date WPS Medicare Part B Medicare Part B [id number] 2018 Unknown [facility] Medicare Part B [id number] 2018 Unknown Family history Father Diagnosis Age At Onset Hypertension Unknown Coronary Artery Disease Unknown Sister Diagnosis Age At Onset Heart disease Unknown Mother Diagnosis Age At Onset Coronary Artery Disease Unknown Hypertension Unknown Social History Social History Element Codes Description Effective Dates Marital status Unknown 02/19/2015 Number of children Unknown 2 02/19/2015 Employment Unknown Retired 02/19/[address]: 208523281 Has never smoked or chewed tobacco 02/19/2015 Alcohol history Unknown occasionally drinks alcohol 02/19/2015 Allergies, Adverse Reactions, Alerts Substance Reaction Codes Entered Date Inactivated Date Status bactrim RxNorm: 863755 12/19/2015 No Inactive Date Active ciprofloxacin RxNorm: 54698 02/18/2015 No Inactive Date Active Past Medical [...] Instructions pantoprazole 40 mg tablet,delayed release RxNorm: 429713 TAKE ONE TABLET BY MOUTH ONCE DAILY AT BEDTIME 11/27/2018 No Stop Date Active atorvastatin 40 mg tablet RxNorm: 491298 1 Tablet(s) PO daily 09/26/2018 10/25/2018 Inactive dexamethasone 0.5 mg tablet RxNorm: 317513 TAKE 1 TABLET BY MOUTH ONCE DAILY 08/29/2018 No Stop Date Active clonazepam 1 mg tablet RxNorm: 226394 1/2 Tablet(s) PO QHS 05/201812/21/2018 Active allopurinol 100 mg tablet RxNorm: 378530 TAKE ONE TABLET BY MOUTH ONCE DAILY 08/03/2018 No Stop Date Active citalopram 40 mg tablet RxNorm: 534360 TAKE ONE TABLET BY MOUTH ONCE DAILY 06/13/2018 No Stop Date Active Kenalog 40 mg/mL suspension for injection RxNorm: 1180977 Milliliter(s) Inj 06/12/2018 06/12/2018 Inactive clonazepam 1 mg tablet RxNorm: 125473 1 Tablet(s) PO QHS 201708/23/2018 Inactive losartan 50 mg tablet RxNorm: 316576 1/2 Tablet(s) PO daily 05/2018 No Stop Date Active clonazepam 1 mg tablet RxNorm: 664394 1/2 Tablet(s) TAKE ONE TABLET BY MOUTH ONCE DAILY AT BEDTIME AND ONE TABLET THREE TIMES DAILY NEEDED 05/24/2018 06/11/2018 Inactive citalopram 40 mg tablet RxNorm: 525248 1/2 Tablet(s) TAKE ONE TABLET BY MOUTH ONCE DAILY 05/24/2018 09/25/2018 Inactive spironolactone 25 mg tablet RxNorm: 389141 TAKE ONE TABLET BY MOUTH ONCE DAILY 05/22/2018 No Stop Date Active dexamethasone 0.5 mg tablet RxNorm: 711713 TAKE ONE TABLET BY MOUTH ONCE DAILY 02/21/2018 08/28/2018 Inactive Flomax 0.4 mg capsule RxNorm: 386373 TAKE ONE CAPSULE BY MOUTH ONCE DAILY IN THE EVENING 12/19/2017 No Stop Date Active Tamiflu 75 mg capsule RxNorm: 941671 1 Capsule(s) PO BID 201712/12/2017 Inactive clonazepam 1 mg tablet RxNorm: 343998 Tablet(s) TAKE ONE TABLET BY MOUTH ONCE DAILY AT BEDTIME AND ONE TABLET THREE TIMES DAILY NEEDED 11/28/2017 01/26/2018 Inactive pantoprazole 40 mg tablet,delayed release RxNorm: 569381 TAKE ONE TABLET BY MOUTH ONCE DAILY AT BEDTIME 11/07/20172018 Inactive allopurinol 100 mg tablet RxNorm: 273598 TAKE ONE TABLET BY MOUTH ONCE DAILY 10/03/2017 08/02/2018 Inactive pantoprazole 40 mg tablet,delayed release RxNorm: 020811 1 Tablet(s) PO BID 09/01/2017 05/28/2018 Inactive Vitamin B-6 100 mg tablet RxNorm: 119925 1 Tablet(s) PO daily 09/01/2017 06/11/2018 Inactive dutasteride 0.5 mg capsule RxNorm: 934766 1 Capsule(s) PO QPM 09/01/2017 06/11/2018 Inactive spironolactone 25 mg tablet RxNorm: 891190 TAKE ONE TABLET BY MOUTH ONCE DAILY 08/15/2017 05/21/2018 Inactive citalopram 40 mg tablet RxNorm: 141495 TAKE ONE TABLET BY MOUTH ONCE DAILY 08/08/2017 05/04/2018 Inactive dexamethasone 0.5 mg tablet RxNorm: 286244 TAKE ONE TABLET BY MOUTH ONCE DAILY 08/08/2017 11/05/2017 Inactive clonazepam 1 mg tablet RxNorm: 674481 TAKE ONE TABLET BY MOUTH ONCE DAILY AT BEDTIME AND ONE THREE TIMES DAILY NEEDED 05/12/2017 08/08/2017 Inactive clonazepam 1 mg tablet RxNorm: 542385 1 Tablet(s) PO QHS AND 1 TAB PO TID PRN 05/12/2017 05/13/2017 Inactive oxybutynin chloride ER 10 mg tablet,extended release 24 hr RxNorm: 259291 1 Tablet (s) PO daily 04/29/2017 08/02/2017 Inactive dexamethasone 0.5 mg tablet RxNorm: 776246 TAKE ONE TABLET BY MOUTH ONCE DAILY 02/14/2017 04/14/2017 Inactive Flomax 0.4 mg capsule RxNorm: 455834 TAKE ONE CAPSULE BY MOUTH ONCE DAILY IN THE EVENING 02/14/2017 11/10/2017 Inactive pantoprazole 40 mg tablet,delayed release RxNorm: 446093 TAKE ONE TABLET BY MOUTH ONCE DAILY AT BEDTIME 02/14/20172016 Inactive oxybutynin chloride ER 10 mg tablet,extended release 24 hr RxNorm: 557546 1 Tablet (s) PO daily 01/25/2017 04/24/2017 Inactive dexamethasone 0.5 mg tablet RxNorm: 399709 TAKE ONE TABLET BY MOUTH ONCE DAILY 11/10/2016 12/09/2016 Inactive oxybutynin chloride ER 5 mg tablet,extended release 24 hr RxNorm: 862338 1 Tablet( s) PO daily 10/28/2016 10/27/2016 Inactive oxybutynin chloride ER 5 mg tablet,extended release 24 hr RxNorm: 744656 1 Tablet( s) PO daily 10/28/2016 01/24/2017 Inactive Detrol LA 2 mg capsule,extended release RxNorm: 382693 1 Capsule(s) PO QPM 10/26/2016 10/27/2016 Inactive clonazepam 1 mg tablet RxNorm: 168563 1 Tablet(s) PO QHS AND 1 TAB PO TID PRN 10/20/2016 04/17/2017 Inactive dexamethasone 0.5 mg tablet RxNorm: 426304 TAKE ONE TABLET BY MOUTH ONCE DAILY 10/06/2016 11/04/2016 Inactive allopurinol 100 mg tablet RxNorm: 352098 1 Tablet(s) PO daily 09/30/2016 09/24/2017 Inactive Vesicare 5 mg tablet RxNorm: 489226 1 Tablet(s) PO QPM 201512/12/2016 Inactive spironolactone 25 mg tablet RxNorm: 909736 1 Tablet(s) PO daily 08/06/2016 07/31/2017 Inactive citalopram 40 mg tablet RxNorm: 949957 1 Tablet(s) PO daily 09/201606/22/2017 Inactive Plavix 75 mg tablet RxNorm: 946392 1 Tablet(s) PO daily 2015 No Stop Date Active iron ER 159 mg (45 mg iron) tablet,extended release RxNorm: 089040 1 Tablet(s) PO daily 04/27/2016 08/31/2017 Inactive dexamethasone 0.5 mg tablet RxNorm: 087380 1/2 Tablet(s) PO daily 04/27/2016 02/20/2018 Inactive allopurinol 100 mg tablet RxNorm: 700943 1 Tablet(s) PO daily 04/27/2016 09/29/2016 Inactive clonazepam 1 mg tablet RxNorm: 365468 1 Tablet(s) PO QHS and 1 tab po TID prn 04/14/2016 10/07/2016 Inactive allopurinol 100 mg tablet RxNorm: 773964 1 Tablet(s) PO daily 02/17/2016 04/26/2016 Inactive citalopram 20 mg tablet RxNorm: 027788 1 Tablet(s) PO daily 02/201606/27/2016 Inactive Flomax 0.4 mg capsule RxNorm: 079217 1 Capsule(s) PO QPM 201501/13/2017 Inactive [SAVINGS FOR NON-COVERED DRUGS -- BIN:904600, PCN: ASPROD1, Group: XXXXX, ID # XXXXXXX, Questions: . THIS IS NOT INSURANCE.] pantoprazole 40 mg tablet,delayed release RxNorm: 666902 1 Tablet(s) PO QHS 01/20/2016 01/13/2017 Inactive Colcrys 0.6 mg tablet RxNorm: 009045 1 Tablet(s) PO daily 201503/05/2016 Inactive take daily x 7 days then daily as needed for gout flair colchicine 0.6 mg tablet RxNorm: 258453 1 Tablet(s) PO BID 01/01/2016 Inactive doxycycline hyclate 100 mg tablet RxNorm: 664422 1 Tablet(s) PO BID 12/19/2015 12/28/2015 Inactive doxycycline hyclate 100 mg tablet RxNorm: 082549 1 Tablet(s) PO BID 12/19/2015 12/18/2015 Inactive allopurinol 100 mg tablet RxNorm: 843429 1 Tablet(s) PO daily 12/16/2015 02/16/2016 Inactive colchicine 0.6 mg tablet RxNorm: 258316 Tablet(s) PO 1.2 mg PO in the morning and 0.6 mg at night for 2 days. 12/16/2015 Inactive allopurinol 100 mg tablet RxNorm: 016637 1 Tablet(s) PO daily 12/16/2015 12/15/2015 Inactive Protonix 40 mg tablet,delayed release RxNorm: 326842 1 Tablet(s) PO daily 12/16/2015 01/14/2016 Inactive Bactrim DS 800 mg-160 mg tablet RxNorm: 129367 1 Tablet(s) PO BID 12/16/2015 12/18/2015 Inactive colchicine 0.6 mg tablet RxNorm: 421593 Tablet(s) PO 1.2 mg for the first dose and 0.6 mg an hour after 12/15/20152015 Inactive dexamethasone 0.5 mg tablet RxNorm: 025299 1 Tablet(s) PO 12/1202/09/2016 Inactive Plavix 75 mg tablet RxNorm: 381894 1 Tablet(s) PO every other day 12/12/2015 04/09/2016 Inactive nitroglycerin 0.4 mg sublingual tablet RxNorm: 779321 1 Tablet(s) SL x3 in 15 min as needed 12/12/2015 04/26/2016 Inactive clonazepam 1 mg tablet RxNorm: 158515 1 Tablet(s) PO QHS and 1 tab po TID prn 12/11/2015 12/03/2016 Inactive Dupo 5 mg-325 mg tablet RxNorm: 191361 1-2 Tablet(s) PO Q6 as needed 12/11/2015 09/26/2016 Inactive clonazepam 1 mg tablet RxNorm: 448743 1 Tablet(s) PO QHS and 1 tab po TID prn 12/04/2015 12/10/2015 Inactive Flomax 0.4 mg capsule RxNorm: 866160 1 Capsule(s) PO QPM 201401/19/2016 Inactive [SAVINGS FOR NON-COVERED DRUGS -- BIN:[id number], PCN: ASPROD1, Group: XXXXX, ID # XXXXXXX, Questions: . THIS IS NOT INSURANCE.] Flomax 0.4 mg capsule RxNorm: 227278 1 Capsule(s) PO QPM 201409/21/2015 Inactive [SAVINGS FOR NON-COVERED DRUGS -- BIN:[id number], PCN: ASPROD1, Group: XXXXX, ID # XXXXXXX, Questions: . THIS IS NOT INSURANCE.] clonazepam 1 mg tablet RxNorm: 965483 1 Tablet(s) PO QHS 201412/03/2015 Inactive coenzyme Q10 10 mg tablet RxNorm: 416214 1 Tablet(s) PO daily 07/30/2015 01/05/2016 Inactive spironolactone 25 mg tablet RxNorm: 977416 1 Tablet(s) PO daily 07/28/2015 07/21/2016 Inactive spironolactone 25 mg tablet RxNorm: 961623 1 Tablet(s) PO daily 07/22/2015 07/27/2015 Inactive clonazepam 1 mg tablet RxNorm: 127612 1 Tablet(s) PO QHS 201408/28/2015 Inactive losartan 25 mg tablet RxNorm: 318753 1 Tablet(s) PO daily 201403/20/2015 Inactive Flonase Allergy Relief 50 mcg/actuation nasal spray, suspension RxNorm: 1 [place] NASAL BID 02/19/2015 04/26/2016 Inactive [SAVINGS FOR NON-COVERED DRUGS -- BIN:[id number], PCN: ASPROD1, Group: XXXXX, ID# XXXXXXX, Questions: [phone]. THIS IS NOT INSURANCE.] Flomax 0.4 mg capsule RxNorm: 105610 1 Capsule(s) PO QPM 201409/15/2015 Inactive [SAVINGS FOR NON-COVERED DRUGS -- BIN:786196, PCN: ASPROD1, Group: XXXXX, ID # XXXXXXX, Questions: . THIS IS NOT INSURANCE.] citalopram 20 mg tablet RxNorm: 607776 1 Tablet(s) PO daily 03/201503/20/2015 Inactive atenolol 25 mg tablet RxNorm: 168172 1 Tablet(s) PO daily 201403/20/2015 Inactive Lipitor 20 mg tablet RxNorm: 966157 1 Tablet(s) PO daily 201403/20/2015 Inactive vitamin B complex oral RxNorm: 76041 oral No Start Date Active Claritin-D 24 Hour oral RxNorm: 208565 oral No Start Date Active Lipitor oral RxNorm: 86171 oral No Start Date Active cetirizine 10 mg tablet RxNorm: 0367645 1 Tablet(s) PO daily No Start Date Active Aleve 220 mg tablet RxNorm: 350890 Tablet(s) PO as needed No Start Date Active Vitamin D3 1,000 unit capsule RxNorm: 385599 2 Capsule(s) PO daily No Start Date Active Centrum Complete oral RxNorm: 33561 oral No Start Date Active glucosamine HCl 1,500 mg tablet RxNorm: 414112 1 Tablet(s) with 1200 mg chrondroitin PO daily No Start Date 2017 Inactive ranitidine 150 mg tablet RxNorm: 166519 1 Tablet(s) PO TID No Start Date 12/11/2015 Inactive Dupo 5 mg-325 mg tablet RxNorm: 794221 1-2 Tablet(s) PO Q6 as needed No Start Date 12/10/2015 Inactive krill oil oral RxNorm : 82630 oral No Start Date 08/07/2018 Inactive Vitamin B-6 100 mg tablet RxNorm: 407773 1 Tablet(s) PO TID No Start Date 08/31/2017 Inactive spironolactone 25 mg tablet RxNorm: 421464 1 Tablet(s) PO daily No Start Date 07/21/2015 Inactive Vitamin D3 oral RxNorm : 2418 oral No Start Date 02/17/2016 Inactive clonazepam 1 mg tablet RxNorm: 544428 1 Tablet(s) PO daily No Start Date 05/22/2015 Inactive Glucosamine oral RxNorm: 4845 oral No Start Date 04/26/2016 Inactive losartan 50 mg tablet RxNorm: 110719 1 Tablet(s) PO daily No Start Date 05/23/2018 Inactive Plavix 75 mg tablet RxNorm: 515642 1 Tablet(s) PO every other day No Start Date 12/11/2015 Inactive Osteo Bi-Flex oral RxNorm: 8904111 oral No Start Date 09/01/2017 Inactive iron ER 159 mg (45 mg iron) tablet,extended release RxNorm: 784445 1 Tablet(s) PO BID No Start Date 04/26/2016 Inactive amlodipine 5 mg tablet RxNorm: 558228 1 Tablet(s) PO daily No Start Date 01/05/2016 Inactive aspirin 81 mg tablet,delayed release RxNorm: 856527 1 Tablet(s) PO daily No Start Date 05/09/2018 Inactive dexamethasone 0.5 mg tablet RxNorm: 395872 1 Tablet(s) PO No Start Date 12/11/2015 Inactive Vitamin B-12 1,000 mcg tablet RxNorm: 909356 6 Tablet(s) PO every other day No Start Date 06/11/2018 Inactive colchicine 0.6 mg tablet RxNorm: 080260 Tablet(s) PO 1.2 mg for the first dose and 0.6 mg an hour after No Start Date Inactive nitroglycerin 0.4 mg sublingual tablet RxNorm: 111298 1 Tablet(s) SL x3 in 15 min as needed No Start Date 12/11/2015 Inactive Fish Oil 1,000 mg capsule RxNorm: 1 Capsule(s) PO daily No Start Date 04/26/2016 Inactive Ecotrin Low Strength 81 mg tablet,enteric coated RxNorm: 9648848 1 Tablet(s) PO daily No Start Date 09/27/2016 Inactive Medication Administered Medication Codes Instructions Start Date Status Kenalog 40 mg/mL suspension for injection RxNorm: 0208158 Milliliter 06/12/2018 No longer Active Immunizations Vaccine [...] 30.4 pg 10/20/2018 Cbc With Differential Ord2 [place]% 5.7 % 10/20/2018 Cbc With Differential Ord2 [...] 1.69 K/ul 10/20/2018 Cbc With Differential Ord2 [place] ABS# 0.6 K/ul 10/20/2018 Cbc With Differential Ord2 Eos ABS# 0.0 K/ul 10/20/2018 Cbc With Differential Ord2 Baso ABS# 0.0 K/ul 10/20/2018 Comp Metabolic Jeq345 NA 140 mEq/L 10/20/2018 Comp Metabolic Tjz554 K 4.0 mEq/L 10/20/2018 Comp Metabolic Qjm878 CL 104 mEq/L 10/20/2018 Comp Metabolic Afh708 CO2 28.0 mEq/L 10/20/2018 Comp Metabolic Xee836 ANION GAP 12 10/20/2018 Comp Metabolic Cby274 GLUCOSE 113 mg/dL 10/20/2018 Comp Metabolic Ono867 Creat 1.0 mg/dL 10/20/2018 Comp Metabolic Lfg711 eGFR 75 ml/min/1.73m2 10/20/2018 Comp Metabolic Tgn081 BUN 18 mg/dL 10/20/2018 Comp Metabolic Zsk143 B/C Ratio 17.8 Ratio 10/20/2018 Comp Metabolic Ijm825 CALCIUM 9.8 mg/dL 10/20/2018 Comp Metabolic Gws234 ALK PHOS 70 U/L 10/20/2018 Comp Metabolic Baq434 AST(SGOT) 15 U/L 10/20/2018 Comp Metabolic Sqq644 ALT(SGPT) 18 U/L 10/20/2018 Comp Metabolic Gzk183 BILI T 1.1 mg/dL 10/20/2018 Comp Metabolic Luk656 ALBUMIN 4.4 g/dL 10/20/2018 Comp Metabolic Npn336 TPRO 6.9 g/dL 10/20/2018 Comp Metabolic Hut440 GLOB 2.5 g/dL 10/20/2018 Comp Metabolic Kzw398 A/G Ratio 1.7 Ratio 10/20/2018 Comp Metabolic Csi922 Osmo 282 mOsmo 10/20/2018 Urinalysis Ord28 U-Color [...] 29.0 pg 07/14/2018 Cbc With Differential Ord2 [place]% 7.5 % 07/14/2018 Cbc With Differential Ord2 [...] 1.92 K/ul 07/14/2018 Cbc With Differential Ord2 [place] ABS# 0.4 K/ul 07/14/2018 Cbc With Differential Ord2 Eos ABS# 0.2 K/ul 07/14/2018 Cbc With Differential Ord2 Baso ABS# 0.0 K/ul 07/14/2018 Renal Pfs145 NA 140 mEq/L 07/14/2018 Renal Bka744 K 4.2 mEq/L 07/14/2018 Renal Eed650 CL 103 mEq/L 07/14/2018 Renal Mjd875 CO2 29.0 mEq/L 07/14/2018 Renal Zcr060 ANION GAP 12 07/14/2018 Renal Xff939 Osmo 280 mOsmo 07/14/2018 Renal Bcu081 GLUCOSE 95 mg/dL 07/14/2018 Renal Twj165 BUN 15 mg/dL 07/14/2018 Renal Xhc400 Creat 1.2 mg/dL 07/14/2018 Renal Ebj339 eGFR 64 ml/min/1.73m2 07/14/2018 Renal Cab010 B/C Ratio 12.8 Ratio 07/14/2018 Renal Zhe454 CALCIUM 9.6 mg/dL 07/14/2018 Renal Cvt573 PHOS 3.2 mg/dL 07/14/2018 Renal Gte603 ALBUMIN 4.4 g/dL 07/14/2018 Magnesium Ord90 Mag [...] 29.7 pg 06/08/2018 Cbc With Differential Ord2 [place]% 8.7 % 06/08/2018 Cbc With Differential Ord2 [...] 2.14 K/ul 06/08/2018 Cbc With Differential Ord2 [place] ABS# 0.5 K/ul 06/08/2018 Cbc With Differential Ord2 Eos ABS# 0.2 K/ul 06/08/2018 Cbc With Differential Ord2 Baso ABS# 0.0 K/ul 06/08/2018 Comp Metabolic Usm125 NA 139 mEq/L 06/08/2018 Comp Metabolic Qzo867 K 4.6 mEq/L 06/08/2018 Comp Metabolic Ltv729 CL 105 mEq/L 06/08/2018 Comp Metabolic Eej593 CO2 26.0 mEq/L 06/08/2018 Comp Metabolic Ock775 ANION GAP 13 06/08/2018 Comp Metabolic Ovn063 GLUCOSE 95 mg/dL 06/08/2018 Comp Metabolic Jux179 Creat 1.2 mg/dL 06/08/2018 Comp Metabolic Kmv998 eGFR 59 ml/min/1.73m2 06/08/2018 Comp Metabolic Myk672 BUN 12 mg/dL 06/08/2018 Comp Metabolic Zpt672 B/C Ratio 9.7 Ratio 06/08/2018 Comp Metabolic Csw398 CALCIUM 9.9 mg/dL 06/08/2018 Comp Metabolic Joj515 ALK PHOS 70 U/L 06/08/2018 Comp Metabolic Jsc700 AST(SGOT) 21 U/L 06/08/2018 Comp Metabolic Tav752 ALT(SGPT) 20 U/L 06/08/2018 Comp Metabolic Sdt837 BILI T 1.0 mg/dL 06/08/2018 Comp Metabolic Xwz385 ALBUMIN 4.5 g/dL 06/08/2018 Comp Metabolic Zij903 TPRO 7.2 g/dL 06/08/2018 Comp Metabolic Wky392 GLOB 2.8 g/dL 06/08/2018 Comp Metabolic Cet667 A/G Ratio 1.6 Ratio 06/08/2018 Comp Metabolic Pdv533 Osmo 277 mOsmo 06/08/2018 Cbc With Differential [...] 30.6 pg 05/10/2018 Cbc With Differential Ord2 [place]% 6.5 % 05/10/2018 Cbc With Differential Ord2 [...] 1.94 K/ul 05/10/2018 Cbc With Differential Ord2 [place] ABS# 0.4 K/ul 05/10/2018 Cbc With Differential [...] Ord30 C/HDL 4.2 Ratio 01/26/2018 Comp Metabolic Cxe729 NA 138 mEq/L 01/26/2018 Comp Metabolic Ext183 K 4.2 mEq/L 01/26/2018 Comp Metabolic Uvl580 CL 105 mEq/L 01/26/2018 Comp Metabolic Oce911 CO2 23.0 mEq/L 01/26/2018 Comp Metabolic Lcs263 ANION GAP 14 01/26/2018 Comp Metabolic Hhr548 GLUCOSE 89 mg/dL 01/26/2018 Comp Metabolic Hcg390 Creat 1.1 mg/dL 01/26/2018 Comp Metabolic Qfv056 eGFR 70 ml/min/1.73m2 01/26/2018 Comp Metabolic Bmy954 BUN 18 mg/dL 01/26/2018 Comp Metabolic Xct639 B/C Ratio 16.8 Ratio 01/26/2018 Comp Metabolic Cwp966 CALCIUM 9.2 mg/dL 01/26/2018 Comp Metabolic Mro983 ALK PHOS 67 U/L 01/26/2018 Comp Metabolic Tgs632 AST(SGOT) 31 U/L 01/26/2018 Comp Metabolic Yxy738 ALT(SGPT) 23 U/L 01/26/2018 Comp Metabolic Ufp256 BILI T 1.7 mg/dL 01/26/2018 Comp Metabolic Nsv241 ALBUMIN 3.9 g/dL 01/26/2018 Comp Metabolic Fwc593 TPRO 6.7 g/dL 01/26/2018 Comp Metabolic Uiz342 GLOB 2.8 g/dL 01/26/2018 Comp Metabolic Fqp012 A/G Ratio 1.4 Ratio 01/26/2018 Comp Metabolic Rgm628 Osmo 277 mOsmo 01/26/2018 Cbc With Differential [...] 30.7 pg 01/26/2018 Cbc With Differential Ord2 [place]% 7.1 % 01/26/2018 Cbc With Differential Ord2 [...] 2.40 K/ul 01/26/2018 Cbc With Differential Ord2 [place] ABS# 0.5 K/ul 01/26/2018 Cbc With Differential Ord2 Eos ABS# 0.2 K/ul 01/26/2018 Cbc With Differential Ord2 Baso ABS# 0.0 K/ul 01/26/2018 Tsh Ord6 TSH (3rd IS) 1.81 uIU/mL 01/26/2018 Testosterone Dnh947 Testo 370.3 ng/dL 01/26/2018 C A/B FLU [id number] Influenza A Scr Negative 12/08/2017 C A/B FLU [id number] Influenza B Scr Negative 12/08/2017 C A/B FLU [id number] Influenza Intrp B AG: PRID:PT:NOSE:NOM:IF See Footnote [...] 30.8 pg 04/11/2017 Cbc With Differential Ord2 [place]% 8.1 % 04/11/2017 Cbc With Differential Ord2 [...] 1.91 K/ul 04/11/2017 Cbc With Differential Ord2 [place] ABS# 0.5 K/ul 04/11/2017 Cbc With Differential Ord2 Eos ABS# 0.2 K/ul 04/11/2017 Cbc With Differential Ord2 Baso ABS# 0.0 K/ul 04/11/2017 Comp Metabolic Xes068 NA 140 mEq/L 04/11/2017 Comp Metabolic Mbn802 K 4.1 mEq/L 04/11/2017 Comp Metabolic Nzv506 CL 105 mEq/L 04/11/2017 Comp Metabolic Dpf018 CO2 26.0 mEq/L 04/11/2017 Comp Metabolic Kwu685 ANION GAP 13 04/11/2017 Comp Metabolic Gtt447 GLUCOSE 88 mg/dL 04/11/2017 Comp Metabolic Yro662 Creat 1.1 mg/dL 04/11/2017 Comp Metabolic Oaq379 eGFR 66 ml/min/1.73m2 04/11/2017 Comp Metabolic Fqj328 BUN 18 mg/dL 04/11/2017 Comp Metabolic Ccu626 B/C Ratio 15.9 Ratio 04/11/2017 Comp Metabolic Fce562 CALCIUM 9.0 mg/dL 04/11/2017 Comp Metabolic Eur311 ALK PHOS 72 U/L 04/11/2017 Comp Metabolic Ujd909 AST(SGOT) 22 U/L 04/11/2017 Comp Metabolic Gla635 ALT(SGPT) 26 U/L 04/11/2017 Comp Metabolic Vpl063 BILI T 1.0 mg/dL 04/11/2017 Comp Metabolic Tnb888 ALBUMIN 4.0 g/dL 04/11/2017 Comp Metabolic Trj345 TPRO 6.4 g/dL 04/11/2017 Comp Metabolic Vkd788 GLOB 2.4 g/dL 04/11/2017 Comp Metabolic Mkf918 A/G Ratio 1.6 Ratio 04/11/2017 Comp Metabolic Fyi752 Osmo 281 mOsmo 04/11/2017 Vitamin D 25 Oh Fpv8957 VITAMIN D, 25 HYDROXY 65.52 ng/mL Cbc [...] 28.5 pg 05/18/2016 Cbc With Differential Ord2 [place]% 7.2 % 05/18/2016 Cbc With Differential Ord2 [...] 1.80 K/ul 05/18/2016 Cbc With Differential Ord2 [place] ABS# 0.4 K/ul 05/18/2016 Cbc With Differential Ord2 Eos ABS# 0.2 K/ul 05/18/2016 Cbc With Differential Ord2 Baso ABS# 0.0 K/ul 05/18/2016 Magnesium Ord90 Mag 2.0 mg/dL 05/18/2016 Renal Xqk072 NA 139 mEq/L 05/18/2016 Renal Cup187 K 4.0 mEq/L 05/18/2016 Renal Lng481 CL 104 mEq/L 05/18/2016 Renal Afu930 CO2 27.0 mEq/L 05/18/2016 Renal Bat671 ANION GAP 12 05/18/2016 Renal Eag340 Osmo 279 mOsmo 05/18/2016 Renal Clr542 GLUCOSE 91 mg/dL 05/18/2016 Renal Ewm622 BUN 18 mg/dL 05/18/2016 Renal Ivk898 Creat 1.3 mg/dL 05/18/2016 Renal Ucr703 eGFR 59 ml/min/1.73m2 05/18/2016 Renal Bfo282 B/C Ratio 14.3 Ratio 05/18/2016 Renal Yvi576 CALCIUM 9.3 mg/dL 05/18/2016 Renal Idf674 PHOS 3.2 mg/dL 05/18/2016 Renal Ppu063 ALBUMIN 4.2 g/dL 05/18/2016 Random Urine Protein/Creatinine Ratio Wtd3589 U Prot 15.0 mg/dl 05/18/2016 Random Urine Protein/Creatinine Ratio Xdw8846 U CREAT 141.0 mg/dL 05/18/2016 Random Urine Protein/Creatinine Ratio Xtk4337 R MTP/Creat Ratio 0.11 05/18/2016 Urinalysis Ord28 [...] 28.5 pg 02/19/2016 Cbc With Differential Ord2 [place]% 9.5 % 02/19/2016 Cbc With Differential Ord2 [...] 1.91 K/ul 02/19/2016 Cbc With Differential Ord2 [place] ABS# 0.5 K/ul 02/19/2016 Cbc With Differential Ord2 Eos ABS# 0.2 K/ul 02/19/2016 Cbc With Differential Ord2 Baso ABS# 0.0 K/ul 02/19/2016 Cbc With Differential Ord2 New Analyzer Notice Please note new ref ranges starting 10-29-2015 due to implemntation of new five part differential hematolgy analyzer. 02/19/2016 Tsh Ord6 hTSH II 2.10 uIU/mL 02/19/2016 Comp Metabolic Idr594 NA 138 mEq/L 02/19/2016 Comp Metabolic Wbp129 K 3.8 mEq/L 02/19/2016 Comp Metabolic Wfc931 CL 103 mEq/L 02/19/2016 Comp Metabolic Urc525 CO2 28.0 mEq/L 02/19/2016 Comp Metabolic Zuv105 ANION GAP 11 02/19/2016 Comp Metabolic Fsg187 GLUCOSE 94 mg/dL 02/19/2016 Comp Metabolic Ogo807 Creat 1.0 mg/dL 02/19/2016 Comp Metabolic Iag703 eGFR 75 ml/min/1.73m2 02/19/2016 Comp Metabolic Jyz149 BUN 18 mg/dL 02/19/2016 Comp Metabolic Myq868 B/C Ratio 17.6 Ratio 02/19/2016 Comp Metabolic Rrk496 CALCIUM 9.6 mg/dL 02/19/2016 Comp Metabolic Slj578 ALK PHOS 93 U/L 02/19/2016 Comp Metabolic Sau241 AST(SGOT) 23 U/L 02/19/2016 Comp Metabolic Ghf085 ALT(SGPT) 19 U/L 02/19/2016 Comp Metabolic Qxs848 BILI T 0.8 mg/dL 02/19/2016 Comp Metabolic Poo519 ALBUMIN 4.1 g/dL 02/19/2016 Comp Metabolic Nzo698 TPRO 6.8 g/dL 02/19/2016 Comp Metabolic Ezo826 GLOB 2.7 g/dL 02/19/2016 Comp Metabolic Xcv170 A/G Ratio 1.5 Ratio 02/19/2016 Comp Metabolic Wfq524 Osmo 277 mOsmo 02/19/2016 Uric Acid Ord77 Uric A 6.0 mg/dL 02/19/2016 Total Psa Ord10 PSA 0.82 ng/mL 02/19/2016 Comp Metabolic Ruf879 NA 140 mEq/L 12/16/2015 Comp Metabolic Wzx530 K 4.0 mEq/L 12/16/2015 Comp Metabolic Ojm873 CL 105 mEq/L 12/16/2015 Comp Metabolic Wna001 CO2 24.0 mEq/L 12/16/2015 Comp Metabolic Gcs788 ANION GAP 15 12/16/2015 Comp Metabolic Edy913 GLUCOSE 85 mg/dL 12/16/2015 Comp Metabolic Adn041 Creat 1.2 mg/dL 12/16/2015 Comp Metabolic Wax860 eGFR 65 ml/min/1.73m2 12/16/2015 Comp Metabolic Pnf040 BUN 14 mg/dL 12/16/2015 Comp Metabolic Ugm932 B/C Ratio 12.1 Ratio 12/16/2015 Comp Metabolic Mlb401 CALCIUM 9.1 mg/dL 12/16/2015 Comp Metabolic Ybu782 ALK PHOS 162 U/L 12/16/2015 Comp Metabolic Gfw377 AST(SGOT) 14 U/L 12/16/2015 Comp Metabolic Agv116 ALT(SGPT) 17 U/L 12/16/2015 Comp Metabolic Neg722 BILI T 1.0 mg/dL 12/16/2015 Comp Metabolic Ski858 ALBUMIN 3.4 g/dL 12/16/2015 Comp Metabolic Qwi036 TPRO 6.2 g/dL 12/16/2015 Comp Metabolic Zkw412 GLOB 2.9 g/dL 12/16/2015 Comp Metabolic Rjq944 A/G Ratio 1.2 Ratio 12/16/2015 Comp Metabolic Jev584 Osmo 279 mOsmo 12/16/2015 Uric Acid Ord77 [...] 29.9 % 12/16/2015 Cbc With Differential Ord2 [place]% 7.5 % 12/16/2015 Cbc With Differential Ord2 [...] 1.52 K/ul 12/16/2015 Cbc With Differential Ord2 [place] ABS# 0.4 K/ul 12/16/2015 Cbc With Differential [...] C/HDL 4.0 Ratio 07/21/2015 Urine Protein 24Hr Ubo873 U Prot 5.1 mg/dl 05/16/2015 Urine Protein 24Hr Qme986 U Prot24 71.5 mg/24hr 05/16/2015 Total Volume Urine Gfd145 TV/24hr 1400 ml 05/16/2015 Total Psa Ord10 PSA 0.70 ng/mL 05/15/2015 Renal Kqz976 NA 135 mEq/L 05/15/2015 Renal Asn501 K 3.9 mEq/L 05/15/2015 Renal Exx540 CL 101 mEq/L 05/15/2015 Renal Qlm898 CO2 27.0 mEq/L 05/15/2015 Renal Shw111 ANION GAP 11 05/15/2015 Renal Pau489 Osmo 274 mOsmo 05/15/2015 Renal Alq672 GLUCOSE 132 mg/dL 05/15/2015 Renal Skz211 BUN 19 mg/dL 05/15/2015 Renal Rnl137 Creat 1.1 mg/dL 05/15/2015 Renal Eyb173 eGFR 67 ml/min/1.73m2 05/15/2015 Renal Ssv728 B/C Ratio 17.0 Ratio 05/15/2015 Renal Yfp329 CALCIUM 9.6 mg/dL 05/15/2015 Renal Lmi956 PHOS 3.0 mg/dL 05/15/2015 Renal Cwm603 ALBUMIN 4.3 g/dL 05/15/2015 Cbc With Differential [...] Formatting Model/CDA Sections, Assigned to/Sharee Ramirez CPT-4: [id number] 07/05/2018 THER/PROPH/DIAG INJ SC/IM CPT-4: 69742 06/12/2018 TRIAMCINOLONE ACET INJ NOS CPT-4: J3301 06/12/2018 PPPS, SUBSEQ VISIT CPT -4: G0439 08/03/2017 ADMIN INFLUENZA VIRUS VAC CPT-4: G0008 06/28/2016 FLU VACC PRSV FREE INC ANTIG CPT-4: 24434 06/28/2016 TENIVAC TD VACCINE NO PRSRV 7/> IM CPT-4: 92950 06/28/2016 OCCULT BLOOD FECES CPT -4: 55070 02/19/2015 Vital Signs Date Vital 11/27/2018 Blood Pressure 1: 110/70 Code : 8480-6 BMI: 28.5 Code : 16205-8 Heart Rate 1 : 90 bpm Height: 6' SpO2: 95% Temperature: 36.8 (C) / 98.2 (F) Weight: 210 lbs 8 oz 09/26/2018 Blood Pressure 1: 130/80 Code : 8480-6 BMI: 29.6 Code : 74822-1 Heart Rate 1 : 98 bpm Height: 6' SpO2: 93% Weight: 218 lbs 08/10/2018 BMI: 29.4 Code: 86511-8 Height: 6' Weight: 217 lbs 07/26/2018 Blood Pressure 1: 116/72 Code : 8480-6 BMI: 29.4 Code : 91004-8 Heart Rate 1 : 102 bpm Height: 6' SpO2: 96% Weight: 217 lbs 07/05/2018 Blood Pressure 1: 132/72 Code : 8480-6 Heart Rate 1: 60 bpm SpO2: 95% 06/12/2018 Blood Pressure 1: 120/78 Code : 8480-6 BMI: 29.6 Code : 30061-5 Heart Rate 1 : 103 bpm Height: 6' SpO2: 96% Weight: 218 lbs 05/10/2018 Blood Pressure 1: 114/68 Code : 8480-6 BMI: 29.4 Code : 11677-1 Heart Rate 1 : 92 bpm Height: 6' SpO2: 97% Weight: 217 lbs 03/27/2018 Blood Pressure 1: 126/74 Code : 8480-6 BMI: 30.1 Code : 93795-0 Heart Rate 1 : 103 bpm Height: 6' SpO2: 96% Weight: 222 lbs 01/25/2018 Blood Pressure 1: 122/70 Code : 8480-6 Blood Pressure 2: 126/73 Code: 8480-6 Heart Rate 1: 63 bpm SpO2: 94% 01/24/2018 Blood Pressure 1: 11072 Code : 8480-6 BMI: 29.7 Code : 62111-2 Heart Rate 1 : 88 bpm Height: 6' SpO2: 95% Weight: 219 lbs 12/08/2017 Blood Pressure 1: 120/68 Code : 8480-6 BMI: 30.0 Code : 87130-9 Heart Rate 1 : 91 bpm Height: 6' SpO2: 96% Temperature: 36.7 (C) / 98.1 (F) Weight: 221 lbs 10/27/2017 Blood Pressure 1: 124/76 Code : 8480-6 BMI: 30.1 Code : 71243-9 Heart Rate 1 : 69 bpm Height: 6' SpO2: 95% Weight: 222 lbs 09/29/2017 Blood Pressure 1: 118/66 Code : 8480-6 BMI: 29.9 Code : 51580-6 Heart Rate 1 : 81 bpm Height: 6' SpO2: 95% Weight: 220 lbs 8 oz 09/01/2017 Blood Pressure 1: 122/82 Code : 8480-6 BMI: 29.6 Code : 26454-3 Heart Rate 1 : 75 bpm Height: 6' SpO2: 97% Weight: 218 lbs 08/03/2017 Blood Pressure 1: 120/68 Code : 8480-6 Heart Rate 1: 68 bpm Height: 6' SpO2: 94% Waist Measure (cm): 97 cm 04/26/2017 Blood Pressure 1: 122/72 Code : 8480-6 BMI: 29.4 Code : 19350-5 Heart Rate 1 : 85 bpm Height: 6' SpO2: 92% Weight: 217 lbs 01/25/2017 Blood Pressure 1: 118/78 Code : 8480-6 BMI: 29.4 Code : 38837-5 Heart Rate 1 : 72 bpm Height: 6' SpO2: 94% Temperature: 36.9 (C) / 98.5 (F) Weight: 217 lbs 10/26/2016 Blood Pressure 1: 152/86 Code : 8480-6 BMI: 29.7 Code : 56681-9 Heart Rate 1 : 58 bpm Height: 6' Weight: 219 lbs 09/27/2016 Blood Pressure 1: 138/80 Code : 8480-6 BMI: 29.4 Code : 44363-6 Heart Rate 1 : 52 bpm Height: 6' SpO2: 98% Weight: 217 lbs 06/28/2016 Blood Pressure 1: 128/86 Code : 8480-6 BMI: 29.6 Code : 08750-6 Heart Rate 1 : 69 bpm Height: 6' SpO2: 93% Weight: 218 lbs 04/27/2016 Blood Pressure 1: 118/82 Code : 8480-6 BMI: 29.3 Code : 81147-6 Heart Rate 1 : 85 bpm Height: 6' SpO2: 98% Weight: 216 lbs 02/17/2016 Blood Pressure 1: 132/80 Code : 8480-6 BMI: 28.8 Code : 49957-2 Heart Rate 1 : 94 bpm Height: 6' SpO2: 98% Weight: 212 lbs 01/20/2016 Blood Pressure 1: 120/70 Code : 8480-6 BMI: 29.7 Code : 49351-3 Heart Rate 1 : 87 bpm Height: 6' SpO2: 92% Weight: 219 lbs 01/06/2016 Blood Pressure 1: 122/88 Code : 8480-6 BMI: 28.8 Code : 36631-9 Heart Rate 1 : 83 bpm Height: [...] Code : 8480-6 BMI: 30.5 Code : 11353-8 Heart Rate 1 : 82 bpm Height: 6' SpO2: 92% Weight: 225 lbs 06/09/2015 Blood Pressure 1: 130/76 Code : 8480-6 BMI: 31.1 Code : 81132-7 Heart Rate 1 : 65 bpm Height: 6' SpO2: 96% Weight: 229 lbs 04/29/2015 Blood Pressure 1: 118/78 Code : 8480-6 BMI: 30.7 Code : 83546-6 Heart Rate 1 : 70 bpm Height: 6' Weight: 226 lbs 02/19/2015 Blood Pressure 1: 118/70 Code : 8480-6 BMI: 29.7 Code : 69626-2 Heart Rate 1 : 68 bpm Height: [...] data Encounters Encounter Performer Location Codes Date ([id number]) 63591 EST. PATIENT, LEVEL IV Diagnosis: Shortness of breath[ICD10: R06.02] Diagnosis: Dizziness and giddiness[ICD10: R42] Diagnosis: Other fatigue[ICD10: R53.83] Diagnosis: Essential (primary) hypertension[ICD10: I10] Diagnosis: Muscle weakness (generalized)[ICD10: M62.81] Merline Butcher MD, [facility] CPT-4: 58855 11/27/2018 ([id number]) 22438 EST. PATIENT, LEVEL IV Diagnosis: Essential (primary) hypertension[ICD10: I10] Diagnosis: Vertigo of central origin, right ear[ICD10: H81.41] Diagnosis: Low back pain[ICD10: M54.5] Lesley Butcher MD [facility] CPT- 4: 13867 09/26/2018 ([id number]) 75237 EST. PATIENT, LEVEL III Diagnosis: Dizziness and giddiness[ICD10: R42] Diagnosis: Vertigo of central origin, right ear[ICD10: H81.41] Diagnosis: Essential (primary) hypertension[ICD10: I10] Lesley Butcher MD [facility] CPT-4: 20697 07/26/2018 ([id number]) 99929 EST. PATIENT, LEVEL III Diagnosis: Essential (primary) hypertension[ICD10: I10] Lesley Butcher MD [facility] CPT-4: 24030 06/12/2018 ([id number]) 61511 EST. PATIENT, LEVEL IV Diagnosis: Other iron deficiency anemias[ICD10: D50.8] Diagnosis: Weakness[ICD10: R53.1] Diagnosis: Diverticulosis of large intestine without perforation or abscess with bleeding[ICD10: K57.31] Lesley Butcher MD [facility] CPT-4: 23598 05/10/2018 ([id number]) 42534 EST. PATIENT, LEVEL IV Diagnosis: Essential (primary) hypertension[ICD10: I10] Diagnosis: Major depressive disorder, recurrent, mild[ICD10: F33.0] Diagnosis: Sensorineural hearing loss, bilateral[ICD10: H90.3] Lesley Butcher MD [facility] CPT-4: 02068 03/27/2018 ([id number]) Miscellaneous no charge Diagnosis: Essential (primary) hypertension[ICD10: I10] Mady Butcher MD [facility] CPT-4: 33174 01/25/2018 ([id number]) 91768 EST. PATIENT, LEVEL IV Diagnosis: Essential (primary) hypertension[ICD10: I10] Diagnosis: Sensorineural hearing loss, bilateral[ICD10: H90.3] Diagnosis: Mixed hyperlipidemia[ICD10: E78.2] Diagnosis: Major depressive disorder, recurrent, mild[ICD10: F33.0] Lesley Butcher MD [facility] CPT-4: 58647 01/24/2018 [id number] EST. PATIENT, LEVEL IV Diagnosis: Other malaise[ICD10: R53.81] Diagnosis: Fever, unspecified[ICD10: R50.9] Mady Butcher MD, [facility] CPT- 4: 97003 12/08/2017 ([id number]) 63786 EST. PATIENT, LEVEL III Diagnosis: Essential (primary) hypertension[ICD10: I10] Lesley Butcher MD [facility] CPT-4: 85668 10/27/2017 ([id number]) 48723 EST. PATIENT, LEVEL III Diagnosis: Benign prostatic hyperplasia with lower urinary tract symptoms[ICD10 : N40.1] Diagnosis: Dysphagia, pharyngeal phase[ICD10: R13.13] Lesley Butcher MD, [facility] CPT-4: 57079 09/29/2017 ([id number]) 92162 EST. PATIENT, LEVEL IV Diagnosis: Essential (primary) hypertension[ICD10: I10] Diagnosis: Major depressive disorder, recurrent, mild[ICD10: F33.0] Diagnosis: Sensorineural hearing loss, bilateral[ICD10: H90.3] Lesley Butcher MD, [facility] CPT-4: 70573 09/01/2017 ([id number]) 76158 EST. PATIENT, LEVEL IV Diagnosis: Essential (primary) hypertension[ICD10: I10] Diagnosis: Major depressive disorder, recurrent, mild[ICD10: F33.0] Diagnosis: Mixed hyperlipidemia[ICD10: E78.2] Lesley Butcher MD [facility] CPT-4: 07954 04/26/2017 ([id number]) 11666 EST. PATIENT, LEVEL IV Diagnosis: Essential (primary) hypertension[ICD10: I10] Diagnosis: Major depressive disorder, recurrent, mild[ICD10: F33.0] Diagnosis: Urge incontinence[ICD10: N39.41] Lesley Butcher MD [facility] CPT-4: 19415 01/25/2017 ([id number]) 44964 EST. PATIENT, LEVEL IV Diagnosis: Essential (primary) hypertension[ICD10: I10] Diagnosis: Major depressive disorder, recurrent, mild[ICD10: F33.0] Diagnosis: Urge incontinence[ICD10: N39.41] Lesley Butcher MD, [facility] CPT-4: 91313 10/26/2016 [id number] 97431 EST. PATIENT, LEVEL III Diagnosis: Essential (primary) hypertension[ICD10: I10] Diagnosis: Major depressive disorder, recurrent, mild[ICD10: F33.0] Diagnosis: Urge incontinence[ICD10: N39.41] Lesley Butcher MD, [facility] CPT-4: 52799 09/27/2016 [id number]) 66054 EST. PATIENT, LEVEL IV Diagnosis: Essential (primary) hypertension[ICD10: I10] Diagnosis: Encounter for immunization[ICD10: Z23] Diagnosis: Laceration without foreign body of left forearm, initial encounter[ ICD10: S51.812A] Diagnosis: Laceration without foreign body of right forearm, initial encounter[ ICD10: S51.811A] Diagnosis: Major depressive disorder, recurrent, mild[ICD10: F33.0] Lesley Butcher MD, [facility] CPT-4: 28014 06/28/2016 [id number]) 73904 EST. PATIENT, LEVEL IV Diagnosis: Essential (primary) hypertension[ICD10: I10] Diagnosis: Idiopathic gout, left ankle and foot[ICD10: M10.072] Diagnosis: Other iron deficiency anemias[ICD10: D50.8] Lesley Butcher MD, [facility] CPT-4: 93315 04/27/2016 ([id number]) 56601 EST. 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 PATIENT, LEVEL IV Diagnosis: Weakness[ICD10: R53.1] Diagnosis: Gout, unspecified[ICD10: M10.9] Diagnosis: Hypotension, unspecified[ICD10: I95.9] Lesley Butcher MD, [facility] CPT-4: 09371 12/16/2015 ([id number]) Patient admitted to the hospital from clinic (NO CHARGE) Diagnosis: Hypoxemia[ICD10: R09.02] Diagnosis: Weakness[ICD10: R53.1] Diagnosis: Dyspnea, unspecified[ICD10: R06.00] Mady Butcher MD, [facility] CPT-4: 11582A 11/27/2015 ([id number]) 38956 EST. PATIENT, LEVEL III Diagnosis: Essential (primary) hypertension[ICD10: I10] Diagnosis: Gastro-esophageal reflux disease without esophagitis[ICD10: K21.9] Lesley Butcher MD, [facility] CPT-4: 70347 07/30/2015 ([id number]) 39537 EST. PATIENT, LEVEL III Diagnosis: ESSENTIAL HYPERTENSION[ICD9: 401.9] Merline Butcher MD, [facility] CPT-4: 01380 06/09/2015 ([id number]) 55819 EST. PATIENT, LEVEL III Diagnosis: ESSENTIAL HYPERTENSION[ICD9: 401.9] Lesley Butcher MD, [facility] CPT-4: 36451 04/29/2015 ([id number]) OFFICE/OUTPATIENT VISIT NEW Diagnosis: ESSENTIAL HYPERTENSION[ICD9: 401.9] Diagnosis: DEPRESSIVE DISORDER NEC[ICD9: 311] Diagnosis: Enlarged prostate[ICD9: 600.00] Diagnosis: Nasal inflammation due to allergen[ICD9: 477.9] [facility] CPT-4: 74897 02/19/2015 Plan of Care Planned Activity Notes Codes Status Date Visit Plan: AJI-lrtmtvv-jkdshsvfp of breath -patient reports worsening of chronic symptoms -will check EKG and cardiac enzymes to evaluate for acute changes -recommend patient follow up with 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 09/26/2018 Appointment: Lesley Butcher [facility]el[facility] (15 min) Moderate 09/26/2018 Patient Education: [...] care surrogate. 08/10/2018 Appointment: Mady Dunne WPtel[facility] [facility] - Annual Wellness Visit 08/10/2018 [...] at home. 07/26/2018 Appointment: Lesley Butcher WPtel: [facility] (15 min) Moderate 07/26/2018 Patient Education: [...] his dexamethasone. 06/12/2018 Appointment: Lesley Butcher WPtel: [facility] (15 min) Moderate 06/12/2018 Patient Education: Patient Medication Summary Completed 06/12/2018 Visit Plan: Diverticulosis with recent GI bleeding - improved - continue with supportive care, avoid foods which cause any abdominal pain - monitor symptoms - call if any pain or bleeding recurs. Anemia - check labs today. Weakness - continue with increasing of activity. 05/10/2018 Appointment: Lesley Butcher WPtel: [facility] (30 min) Complex 05/10/2018 Patient Education: [...] implant. 03/27/2018 Appointment: Lesley Butcher WPtel: [phone] [facility] (15 min) Moderate 03/27/2018 Patient Education: Patient [...] to medications. 01/24/2018 Appointment: Lesley Butcher WPtel: [facility] (15 min) Moderate 01/24/2018 Patient Education: Patient Medication Summary Completed 01/24/2018 Visit Plan: Influenza - pt started on tamiflu - pt to start on anti-inflammatories, tylenol and monitor symptoms. Pt to call if not improving. Pt to alert any close contacts as to illness. 12/08/2017 Appointment: Mady Dunne WPtel[facility] (30 min) Complex 12/08/2017 Patient Education: [...] at home. 10/27/2017 Appointment: [phone] [facility] (15 min) Moderate 10/27/2017 Patient Education: Patient Medication Summary Completed 10/27/2017 Referral: External, Ordering Provider Referral Initiated 10/12/2017 Visit Plan: BPH - continue with dutasteride and flomax Dysphagia - referral to Dr. Kumar for EGD - question stricture - dysphagia intermittently - hx of stricture. 09/29/2017 Appointment: Lesley Butcher WPtel: [phone] [facility] (15 min) Moderate 09/29/2017 Patient Education: Patient Medication Summary Completed 09/29/2017 Care Plan: Referral Order SNOMED-CT : 073533618 Pending 09/29/2017 Visit Plan: Hypertension - well [...] recommended patient to have an evaluation at [facility] to see if he has potential for cochlear implant. 09/01/2017 Appointment: Les[facility] Butcher [facility]Ptel[facility] [phone] [facility] [place] (15 min) Moderate 09/01/2017 Patient Education: Patient Medication Summary Completed 09/01/2017 Care Plan: Referral Order SNOMED-CT : [id number] Pending 09/01/2017 Visit Plan: Medicare Exam - [...] surrogate. 08/03/2017 App[facility]ment: [phone] [facility] [facility] - Welcome to Medicare visit [...] medications. 04/26/2017 Appointment: [facility] But[facility]el[facility] [phone] [facility] (15 min) Moderate 04/26/2017 Patient Education: [...] daily. 01/25/2017 Appointment: [facility] But[facility]Ptel[facility] [phone] [facility] (30 min) Complex 01/25/2017 Patient Education: [...] detrol [place] 10/26/2016 Appointment: Lesley Butcher WPtel: [facility] (15 min) Moderate 10/26/2016 Patient Education: [...] retention occur. 09/27/2016 Appointment: [facility] But[facility]el[phone] [facility] (15 min) Moderate 09/27/2016 Patient Education: [...] khalilter 06/28/2016 Appointment: [facility] But[facility]Ptel[facility] [phone] [facility] [place] (15 min) Moderate 06/28/2016 Patient [...] exam, and the assessment and plan. 02/17/2016 Visit Plan: Hypertension - well controlled [...] drops-angela Vang-increase dexamethasone x 1 month 02/17/2016 Appointment: Merline Rose WPtel: [address] [place], [place] [id number] (30 min) Complex 02/17/2016 Patient Education: Patient [...] Completed 12/16/2015 Appointment: Lesley Butcher WPtel: [phone] [facility] (15 min) Moderate 12/04/2015 Appointment: Lesley Butcher WPtel: [phone] [facility] (15 min) Moderate 12/02/2015 Visit Plan: [...] THE PHARMACY 07/30/2015 Appointment: Lesley Butcher WPtel: [phone] [facility] (15 min) Moderate 07/30/2015 Patient Education: Patient [...] at home. 04/29/2015 Appointment: Lesley Butcher WPtel: [phone] [facility] (15 min) Moderate 04/29/2015 Patient Education: Patient [...] External, Ordering Provider Referral Appointment Requested Referral: [facility] 09/12 Referral info faxed Appointment Requested Referral: [facility] Referral Appointment Requested Instructions Comment change spironolactone to early afternoon hold the plavix 72 hours prior to planned injection in back and call the intelligence applications about a biopsy of the lesion on [...] sessions. CHECK CARDIAC ENYZMES AND EKG . BOP-nlmceer-vfeomaryg of breath -patient reports worsening of chronic symptoms -will check EKG and cardiac enzymes to evaluate for acute changes - recommend patient follow up with his mannequin sander and finisher, Dr Stokes -patient, and daughter verbalized understanding of plan. Generalized weakness-discussed PT referral after cleared by cardiology -patient' s will call us when she wants to have it set up HTN-no change but monitor at home . Gout Attack - pt given rx [...] does not want medication at this time. add vitamin b12 dissolving tablets - 2000mcg [...] exposure. No change in current medications. . Diverticulosis with recent GI bleeding - improved - continue with supportive care, avoid foods which cause any abdominal pain - monitor symptoms - call if any pain or bleeding recurs. Anemia - check labs today. Weakness - continue with increasing of activity. CHECK FASTING LABS DEXAMETHASONE 0.5MG-TAKE A FULL [...] physical exam, and the assessment and plan. . Hypertension - well controlled - continue [...] in blood pressure readings at home. . Medicare Exam - today we discussed [...] recommended patient to have an evaluation at [facility] to see if he has potential for cochlear implant. . Admission to Hospital - Dr. Butcher [...] AND EVALUATION OF THE ACUTE ILLNESS. . Hypertension - well controlled - continue with current medications, continue with no added salt diet. Pt has been encouraged to exercise daily. The pt has been advised to call the office if there are any acute concerns about change in blood pressure readings at home. Gout - chronic - continue with allopurinol. Iron deficiency anemia - continue with oral iron. . BPH - continue with dutasteride and flomax Dysphagia - referral to Dr. Kumar for EGD - question stricture - dysphagia intermittently - hx of stricture. the light-headedness that you are experiencing is [...] Hearing loss - improved with cochlear implant. . Medicare Exam - today we discussed [...] change in blood pressure readings at home. increase oxybutynin to 10mg daily. . Hypertension [...] increase dose of oxybutynin to 10mg daily. the light-headedness that you are experiencing is [...] in blood pressure readings at home. . Influenza - pt started on tamiflu - pt to start on anti- inflammatories, tylenol and monitor symptoms. Pt to call if not improving. Pt to alert any close contacts as to illness. . Hypertension - well controlled - continue [...] Urge incontinence - rx for detrol [place] CHECK FASTING LABS DEXAMETHASONE 0.5MG-TAKE A FULL [...] eye drops-angela Vang-increase dexamethasone x 1 month Do physical therapy once the gout gets [...] today agree with appt with shelli andrea Do physical therapy once the gout gets [...] Notify clinic with any questions or concerns. Vesicare 5mg - take one pill at [...] GET THE FLU SHOT AT THE PHARMACY Take 1/2 tab of Citalopram daily for [...]
--- OUTSIDE RECORDS SUMMARY | 2018-12-19 12:37 | XMS REPORT | CCD ---
Author Author [facility] Organization [facility] Address [address] [place] [address] Phone Care Team Providers Care Teletype Or Varitype Keyboard Operator Name Role Phone PP Unavailable CCM Unavailable Summary Purpose Interface Exchange Insurance Providers Payer name Policy type / Coverage type Covered libertarian ID Effective Begin Date Effective End Date WPS Medicare Part B Medicare Part B [id number] 2018 Unknown [facility] Medicare Part B [id number] 2018 Unknown Family history Father Diagnosis Age At Onset Hypertension Unknown Coronary Artery Disease Unknown Sister Diagnosis Age At Onset Heart disease Unknown Mother Diagnosis Age At Onset Coronary Artery Disease Unknown Hypertension Unknown Social History Social History Element Codes Description Effective Dates Marital status Unknown 02/19/2015 Number of children Unknown 2 02/19/2015 Employment Unknown Retired 02/19/[address]: 986705219 Has never smoked or chewed tobacco 02/19/2015 Alcohol history Unknown occasionally drinks alcohol 02/19/2015 Allergies, Adverse Reactions, Alerts Substance Reaction Codes Entered Date Inactivated Date Status bactrim RxNorm: 270859 12/19/2015 No Inactive Date Active ciprofloxacin RxNorm: 12843 02/18/2015 No Inactive Date Active Past Medical History Illness Codes Condition Status Onset Date Resolved Date Dizziness and giddiness ICD-9: 780.4 ICD-10: R42 Active 07/26/2018 Unknown Other fatigue ICD-9: 780.79 ICD-10: R53.83 [...] ICD-9: V70.0 ICD-10: Z00.01 Active 08/03/2017 Unknown Essential (primary) hypertension ICD-9: 401.1 ICD-10: I10 Active 06/27/2016 Unknown Encounter for immunization ICD-9: V04.81 ICD-10: [...] giddiness ICD-9: 780.4 ICD-10: R42 07/26/2018 Active Other fatigue ICD-9: 780.79 ICD-10: R53.83 11/27/2018 Active Shortness of breath ICD-9: 786.05 ICD-10: R06.02 11/27/2018 Active Essential (primary) hypertension ICD-9: 401.9 ICD-10: I10 02/18/2015 Active Low back pain ICD-9: 724.2 ICD-10: M54.5 09/26/2018 Active Vertigo of central origin, 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 07/26/2018 Active Encounter for general adult medical examination with abnormal findings ICD-9: V70.0 ICD-10: Z00.01 08/03/2017 Active Essential (primary) hypertension ICD-9: 401.1 ICD-10: I10 06/27/2016 Active Encounter for immunization ICD-9: V04.81 ICD-10: [...] Instructions pantoprazole 40 mg tablet,delayed release RxNorm: 843722 TAKE ONE TABLET BY MOUTH ONCE DAILY AT BEDTIME 11/27/2018 No Stop Date Active atorvastatin 40 mg tablet RxNorm: 819214 1 Tablet(s) PO daily 09/26/2018 10/25/2018 Inactive dexamethasone 0.5 mg tablet RxNorm: 401547 TAKE 1 TABLET BY MOUTH ONCE DAILY 08/29/2018 No Stop Date Active clonazepam 1 mg tablet RxNorm: 428916 1/2 Tablet(s) PO QHS 05/201812/21/2018 Active allopurinol 100 mg tablet RxNorm: 568995 TAKE ONE TABLET BY MOUTH ONCE DAILY 08/03/2018 No Stop Date Active citalopram 40 mg tablet RxNorm: 576018 TAKE ONE TABLET BY MOUTH ONCE DAILY 06/13/2018 No Stop Date Active Kenalog 40 mg/mL suspension for injection RxNorm: 4979434 Milliliter(s) Inj 06/12/2018 06/12/2018 Inactive clonazepam 1 mg tablet RxNorm: 825417 1 Tablet(s) PO QHS 201708/23/2018 Inactive losartan 50 mg tablet RxNorm: 828319 1/2 Tablet(s) PO daily 05/2018 No Stop Date Active clonazepam 1 mg tablet RxNorm: 451642 1/2 Tablet(s) TAKE ONE TABLET BY MOUTH ONCE DAILY AT BEDTIME AND ONE TABLET THREE TIMES DAILY NEEDED 05/24/2018 06/11/2018 Inactive citalopram 40 mg tablet RxNorm: 391975 1/2 Tablet(s) TAKE ONE TABLET BY MOUTH ONCE DAILY 05/24/2018 09/25/2018 Inactive spironolactone 25 mg tablet RxNorm: 542921 TAKE ONE TABLET BY MOUTH ONCE DAILY 05/22/2018 No Stop Date Active dexamethasone 0.5 mg tablet RxNorm: 524786 TAKE ONE TABLET BY MOUTH ONCE DAILY 02/21/2018 08/28/2018 Inactive Flomax 0.4 mg capsule RxNorm: 560103 TAKE ONE CAPSULE BY MOUTH ONCE DAILY IN THE EVENING 12/19/2017 No Stop Date Active Tamiflu 75 mg capsule RxNorm: 536743 1 Capsule(s) PO BID 201712/12/2017 Inactive clonazepam 1 mg tablet RxNorm: 754299 Tablet(s) TAKE ONE TABLET BY MOUTH ONCE DAILY AT BEDTIME AND ONE TABLET THREE TIMES DAILY NEEDED 11/28/2017 01/26/2018 Inactive pantoprazole 40 mg tablet,delayed release RxNorm: 220004 TAKE ONE TABLET BY MOUTH ONCE DAILY AT BEDTIME 11/07/20172018 Inactive allopurinol 100 mg tablet RxNorm: 617315 TAKE ONE TABLET BY MOUTH ONCE DAILY 10/03/2017 08/02/2018 Inactive pantoprazole 40 mg tablet,delayed release RxNorm: 877146 1 Tablet(s) PO BID 09/01/2017 05/28/2018 Inactive Vitamin B-6 100 mg tablet RxNorm: 664894 1 Tablet(s) PO daily 09/01/2017 06/11/2018 Inactive dutasteride 0.5 mg capsule RxNorm: 630061 1 Capsule(s) PO QPM 09/01/2017 06/11/2018 Inactive spironolactone 25 mg tablet RxNorm: 575858 TAKE ONE TABLET BY MOUTH ONCE DAILY 08/15/2017 05/21/2018 Inactive citalopram 40 mg tablet RxNorm: 515526 TAKE ONE TABLET BY MOUTH ONCE DAILY 08/08/2017 05/04/2018 Inactive dexamethasone 0.5 mg tablet RxNorm: 132297 TAKE ONE TABLET BY MOUTH ONCE DAILY 08/08/2017 11/05/2017 Inactive clonazepam 1 mg tablet RxNorm: 690804 TAKE ONE TABLET BY MOUTH ONCE DAILY AT BEDTIME AND ONE THREE TIMES DAILY NEEDED 05/12/2017 08/08/2017 Inactive clonazepam 1 mg tablet RxNorm: 362950 1 Tablet(s) PO QHS AND 1 TAB PO TID PRN 05/12/2017 05/13/2017 Inactive oxybutynin chloride ER 10 mg tablet,extended release 24 hr RxNorm: 899400 1 Tablet (s) PO daily 04/29/2017 08/02/2017 Inactive dexamethasone 0.5 mg tablet RxNorm: 188712 TAKE ONE TABLET BY MOUTH ONCE DAILY 02/14/2017 04/14/2017 Inactive Flomax 0.4 mg capsule RxNorm: 562648 TAKE ONE CAPSULE BY MOUTH ONCE DAILY IN THE EVENING 02/14/2017 11/10/2017 Inactive pantoprazole 40 mg tablet,delayed release RxNorm: 920946 TAKE ONE TABLET BY MOUTH ONCE DAILY AT BEDTIME 02/14/20172016 Inactive oxybutynin chloride ER 10 mg tablet,extended release 24 hr RxNorm: 736618 1 Tablet (s) PO daily 01/25/2017 04/24/2017 Inactive dexamethasone 0.5 mg tablet RxNorm: 409883 TAKE ONE TABLET BY MOUTH ONCE DAILY 11/10/2016 12/09/2016 Inactive oxybutynin chloride ER 5 mg tablet,extended release 24 hr RxNorm: 669452 1 Tablet( s) PO daily 10/28/2016 10/27/2016 Inactive oxybutynin chloride ER 5 mg tablet,extended release 24 hr RxNorm: 179409 1 Tablet( s) PO daily 10/28/2016 01/24/2017 Inactive Detrol LA 2 mg capsule,extended release RxNorm: 492680 1 Capsule(s) PO QPM 10/26/2016 10/27/2016 Inactive clonazepam 1 mg tablet RxNorm: 030164 1 Tablet(s) PO QHS AND 1 TAB PO TID PRN 10/20/2016 04/17/2017 Inactive dexamethasone 0.5 mg tablet RxNorm: 822941 TAKE ONE TABLET BY MOUTH ONCE DAILY 10/06/2016 11/04/2016 Inactive allopurinol 100 mg tablet RxNorm: 007514 1 Tablet(s) PO daily 09/30/2016 09/24/2017 Inactive Vesicare 5 mg tablet RxNorm: 883070 1 Tablet(s) PO QPM 201512/12/2016 Inactive spironolactone 25 mg tablet RxNorm: 847346 1 Tablet(s) PO daily 08/06/2016 07/31/2017 Inactive citalopram 40 mg tablet RxNorm: 801463 1 Tablet(s) PO daily 09/201606/22/2017 Inactive Plavix 75 mg tablet RxNorm: 169504 1 Tablet(s) PO daily 2015 No Stop Date Active iron ER 159 mg (45 mg iron) tablet,extended release RxNorm: 549492 1 Tablet(s) PO daily 04/27/2016 08/31/2017 Inactive dexamethasone 0.5 mg tablet RxNorm: 293085 1/2 Tablet(s) PO daily 04/27/2016 02/20/2018 Inactive allopurinol 100 mg tablet RxNorm: 523387 1 Tablet(s) PO daily 04/27/2016 09/29/2016 Inactive clonazepam 1 mg tablet RxNorm: 045889 1 Tablet(s) PO QHS and 1 tab po TID prn 04/14/2016 10/07/2016 Inactive allopurinol 100 mg tablet RxNorm: 860214 1 Tablet(s) PO daily 02/17/2016 04/26/2016 Inactive citalopram 20 mg tablet RxNorm: 833323 1 Tablet(s) PO daily 02/201606/27/2016 Inactive Flomax 0.4 mg capsule RxNorm: 517237 1 Capsule(s) PO QPM 201501/13/2017 Inactive [SAVINGS FOR NON-COVERED DRUGS -- BIN:[id number], PCN: ASPROD1, Group: XXXXX, ID # XXXXXXX, Questions: . THIS IS NOT INSURANCE.] pantoprazole 40 mg tablet,delayed release RxNorm: 419513 1 Tablet(s) PO QHS 01/20/2016 01/13/2017 Inactive Colcrys 0.6 mg tablet RxNorm: 372760 1 Tablet(s) PO daily 201503/05/2016 Inactive take daily x 7 days then daily as needed for gout flair colchicine 0.6 mg tablet RxNorm: 219421 1 Tablet(s) PO BID 01/01/2016 Inactive doxycycline hyclate 100 mg tablet RxNorm: 827139 1 Tablet(s) PO BID 12/19/2015 12/28/2015 Inactive doxycycline hyclate 100 mg tablet RxNorm: 489087 1 Tablet(s) PO BID 12/19/2015 12/18/2015 Inactive allopurinol 100 mg tablet RxNorm: 475943 1 Tablet(s) PO daily 12/16/2015 02/16/2016 Inactive colchicine 0.6 mg tablet RxNorm: 394185 Tablet(s) PO 1.2 mg PO in the morning and 0.6 mg at night for 2 days. 12/16/2015 Inactive allopurinol 100 mg tablet RxNorm: 087077 1 Tablet(s) PO daily 12/16/2015 12/15/2015 Inactive Protonix 40 mg tablet,delayed release RxNorm: 148280 1 Tablet(s) PO daily 12/16/2015 01/14/2016 Inactive Bactrim DS 800 mg-160 mg tablet RxNorm: 503970 1 Tablet(s) PO BID 12/16/2015 12/18/2015 Inactive colchicine 0.6 mg tablet RxNorm: 716091 Tablet(s) PO 1.2 mg for the first dose and 0.6 mg an hour after 12/15/20152015 Inactive dexamethasone 0.5 mg tablet RxNorm: 419662 1 Tablet(s) PO 12/1202/09/2016 Inactive Plavix 75 mg tablet RxNorm: 733346 1 Tablet(s) PO every other day 12/12/2015 04/09/2016 Inactive nitroglycerin 0.4 mg sublingual tablet RxNorm: 943113 1 Tablet(s) SL x3 in 15 min as needed 12/12/2015 04/26/2016 Inactive clonazepam 1 mg tablet RxNorm: 550807 1 Tablet(s) PO QHS and 1 tab po TID prn 12/11/2015 12/03/2016 Inactive [place] 5 mg-325 mg tablet RxNorm: 285987 1-2 Tablet(s) PO Q6 as needed 12/11/2015 09/26/2016 Inactive clonazepam 1 mg tablet RxNorm: 567537 1 Tablet(s) PO QHS and 1 tab po TID prn 12/04/2015 12/10/2015 Inactive Flomax 0.4 mg capsule RxNorm: 835004 1 Capsule(s) PO QPM 201401/19/2016 Inactive [SAVINGS FOR NON-COVERED DRUGS -- BIN:[id number], PCN: ASPROD1, Group: XXXXX, ID # [id number], Questions: . THIS IS NOT INSURANCE.] Flomax 0.4 mg capsule RxNorm: 026679 1 Capsule(s) PO QPM 201409/21/2015 Inactive [SAVINGS FOR NON-COVERED DRUGS -- BIN:036320, PCN: ASPROD1, Group: XXXXX, ID # XXXXXXX, Questions: . THIS IS NOT INSURANCE.] clonazepam 1 mg tablet RxNorm: 849246 1 Tablet(s) PO QHS 201412/03/2015 Inactive coenzyme Q10 10 mg tablet RxNorm: 465152 1 Tablet(s) PO daily 07/30/2015 01/05/2016 Inactive spironolactone 25 mg tablet RxNorm: 757401 1 Tablet(s) PO daily 07/28/2015 07/21/2016 Inactive spironolactone 25 mg tablet RxNorm: 019900 1 Tablet(s) PO daily 07/22/2015 07/27/2015 Inactive clonazepam 1 mg tablet RxNorm: 575725 1 Tablet(s) PO QHS 201408/28/2015 Inactive losartan 25 mg tablet RxNorm: 463234 1 Tablet(s) PO daily 201403/20/2015 Inactive Flonase Allergy Relief 50 mcg/actuation nasal spray, suspension RxNorm: 1 [place] NASAL BID 02/19/2015 04/26/2016 Inactive [SAVINGS FOR NON-COVERED DRUGS -- BIN:750241, PCN: ASPROD1, Group: XXXXX, ID# XXXXXXX, Questions: [phone]. THIS IS NOT INSURANCE.] Flomax 0.4 mg capsule RxNorm: 801629 1 Capsule(s) PO QPM 201409/15/2015 Inactive [SAVINGS FOR NON-COVERED DRUGS -- BIN:343766, N: ASPROD1, Group: XXXXX, ID # XXXXXXX, Questions: . THIS IS NOT INSURANCE.] citalopram 20 mg tablet RxNorm: 793991 1 Tablet(s) PO daily 03/201503/20/2015 Inactive atenolol 25 mg tablet RxNorm: 615484 1 Tablet(s) PO daily 201403/20/2015 Inactive Lipitor 20 mg tablet RxNorm: 764617 1 Tablet(s) PO daily 201403/20/2015 Inactive vitamin B complex oral RxNorm: 19757 oral No Start Date Active Claritin-D 24 Hour oral RxNorm: 214327 oral No Start Date Active Lipitor oral RxNorm: 16383 oral No Start Date Active cetirizine 10 mg tablet RxNorm: 5940374 1 Tablet(s) PO daily No Start Date Active Aleve 220 mg tablet RxNorm: 365572 Tablet(s) PO as needed No Start Date Active Vitamin D3 1,000 unit capsule RxNorm: 083074 2 Capsule(s) PO daily No Start Date Active Centrum Complete oral RxNorm: 19170 oral No Start Date Active glucosamine HCl 1,500 mg tablet RxNorm: 476673 1 Tablet(s) with 1200 mg chrondroitin PO daily No Start Date 2017 Inactive ranitidine 150 mg tablet RxNorm: 442576 1 Tablet(s) PO TID No Start Date 12/11/2015 Inactive [place] 5 mg-325 mg tablet RxNorm: 748411 1-2 Tablet(s) PO Q6 as needed No Start Date 12/10/2015 Inactive krill oil oral RxNorm : 05096 oral No Start Date 08/07/2018 Inactive Vitamin B-6 100 mg tablet RxNorm: 657329 1 Tablet(s) PO TID No Start Date 08/31/2017 Inactive spironolactone 25 mg tablet RxNorm: 869790 1 Tablet(s) PO daily No Start Date 07/21/2015 Inactive Vitamin D3 oral RxNorm : 2418 oral No Start Date 02/17/2016 Inactive clonazepam 1 mg tablet RxNorm: 693925 1 Tablet(s) PO daily No Start Date 05/22/2015 Inactive Glucosamine oral RxNorm: 4845 oral No Start Date 04/26/2016 Inactive losartan 50 mg tablet RxNorm: 008960 1 Tablet(s) PO daily No Start Date 05/23/2018 Inactive Plavix 75 mg tablet RxNorm: 253587 1 Tablet(s) PO every other day No Start Date 12/11/2015 Inactive Osteo Bi-Flex oral RxNorm: 9857338 oral No Start Date 09/01/2017 Inactive iron ER 159 mg (45 mg iron) tablet,extended release RxNorm: 058064 1 Tablet(s) PO BID No Start Date 04/26/2016 Inactive amlodipine 5 mg tablet RxNorm: 268086 1 Tablet(s) PO daily No Start Date 01/05/2016 Inactive aspirin 81 mg tablet,delayed release RxNorm: 501739 1 Tablet(s) PO daily No Start Date 05/09/2018 Inactive dexamethasone 0.5 mg tablet RxNorm: 115014 1 Tablet(s) PO No Start Date 12/11/2015 Inactive Vitamin B-12 1,000 mcg tablet RxNorm: 716752 6 Tablet(s) PO every other day No Start Date 06/11/2018 Inactive colchicine 0.6 mg tablet RxNorm: 147331 Tablet(s) PO 1.2 mg for the first dose and 0.6 mg an hour after No Start Date Inactive nitroglycerin 0.4 mg sublingual tablet RxNorm: 944400 1 Tablet(s) SL x3 in 15 min as needed No Start Date 12/11/2015 Inactive Fish Oil 1,000 mg capsule RxNorm: 1 Capsule(s) PO daily No Start Date 04/26/2016 Inactive Ecotrin Low Strength 81 mg tablet,enteric coated RxNorm: 4990378 1 Tablet(s) PO daily No Start Date 09/27/2016 Inactive Medication Administered Medication Codes Instructions Start Date Status Kenalog 40 mg/mL suspension for injection RxNorm: 3480361 Milliliter 06/12/2018 No longer Active Immunizations Vaccine Codes Date Status Influenza CVX: 141 07/05/2018 completed Influenza CVX: 141 08/01/2017 completed Pneumococcal CVX: 33 08/01/2017 completed Influenza CVX: 141 06/28/2016 completed Tetanus, Diptheria, Pertussis CVX: 113 completed Tetanus/Diptheria CVX: 113 06/28/2016 completed Pneumococcal Unknown 08/04/2015 completed Influenza CVX: 141 04/16/2014 completed Pneumococcal CVX: 33 05/15/2008 completed Assessments Condition Codes Effective Dates Vertigo of central origin, right ear ICD-10: H81.41 ICD-9: 386.2 09/26/2018 Essential (primary) hypertension ICD-10: I10 ICD-9: 401.9 09/26/2018 Low back pain ICD-10: M54.5 ICD-9: 724.2 09/26/2018 Encounter for general adult medical examination with abnormal findings ICD-10: Z00.01 ICD-9: V70.0 08/10/2018 Dizziness and giddiness ICD-10: R42 ICD-9: 780.4 07/26/2018 Essential (primary) hypertension ICD-10: I10 ICD-9: 401.1 07/26/2018 Encounter for immunization ICD-10: Z23 ICD-9: V04.81 [...] Visit Reason For Visit Effective Dates Notes dyspepsia 09/26/2018 Annual Medicare Wellness Exam 08/10/2018 [...] 30.4 pg 10/20/2018 Cbc With Differential Ord2 [place]% 5.7 % 10/20/2018 Cbc With Differential Ord2 [...] 1.69 K/ul 10/20/2018 Cbc With Differential Ord2 [place] ABS# 0.6 K/ul 10/20/2018 Cbc With Differential Ord2 Eos ABS# 0.0 K/ul 10/20/2018 Cbc With Differential Ord2 Baso ABS# 0.0 K/ul 10/20/2018 Comp Metabolic Qcd563 NA 140 mEq/L 10/20/2018 Comp Metabolic Kqx519 K 4.0 mEq/L 10/20/2018 Comp Metabolic Mqz276 CL 104 mEq/L 10/20/2018 Comp Metabolic Tgr811 CO2 28.0 mEq/L 10/20/2018 Comp Metabolic Pio964 ANION GAP 12 10/20/2018 Comp Metabolic Tih855 GLUCOSE 113 mg/dL 10/20/2018 Comp Metabolic Zkx777 Creat 1.0 mg/dL 10/20/2018 Comp Metabolic Ssa100 eGFR 75 ml/min/1.73m2 10/20/2018 Comp Metabolic Qvh685 BUN 18 mg/dL 10/20/2018 Comp Metabolic Wzw773 B/C Ratio 17.8 Ratio 10/20/2018 Comp Metabolic Qcx490 CALCIUM 9.8 mg/dL 10/20/2018 Comp Metabolic Zdm314 ALK PHOS 70 U/L 10/20/2018 Comp Metabolic Vms387 AST(SGOT) 15 U/L 10/20/2018 Comp Metabolic Tts021 ALT(SGPT) 18 U/L 10/20/2018 Comp Metabolic Nqr051 BILI T 1.1 mg/dL 10/20/2018 Comp Metabolic Gpn794 ALBUMIN 4.4 g/dL 10/20/2018 Comp Metabolic Njc322 TPRO 6.9 g/dL 10/20/2018 Comp Metabolic Pth721 GLOB 2.5 g/dL 10/20/2018 Comp Metabolic Ojy669 A/G Ratio 1.7 Ratio 10/20/2018 Comp Metabolic Pra365 Osmo 282 mOsmo 10/20/2018 Urinalysis Ord28 U-Color [...] 29.0 pg 07/14/2018 Cbc With Differential Ord2 [place]% 7.5 % 07/14/2018 Cbc With Differential Ord2 [...] 1.92 K/ul 07/14/2018 Cbc With Differential Ord2 [place] ABS# 0.4 K/ul 07/14/2018 Cbc With Differential Ord2 Eos ABS# 0.2 K/ul 07/14/2018 Cbc With Differential Ord2 Baso ABS# 0.0 K/ul 07/14/2018 Renal Fay504 NA 140 mEq/L 07/14/2018 Renal Ayj343 K 4.2 mEq/L 07/14/2018 Renal Eoq221 CL 103 mEq/L 07/14/2018 Renal Taf243 CO2 29.0 mEq/L 07/14/2018 Renal Cpy517 ANION GAP 12 07/14/2018 Renal Kgs479 Osmo 280 mOsmo 07/14/2018 Renal Csc486 GLUCOSE 95 mg/dL 07/14/2018 Renal Zoz655 BUN 15 mg/dL 07/14/2018 Renal Qaz102 Creat 1.2 mg/dL 07/14/2018 Renal Esa066 eGFR 64 ml/min/1.73m2 07/14/2018 Renal Nfa472 B/C Ratio 12.8 Ratio 07/14/2018 Renal Wap904 CALCIUM 9.6 mg/dL 07/14/2018 Renal Jbt320 PHOS 3.2 mg/dL 07/14/2018 Renal Ohu380 ALBUMIN 4.4 g/dL 07/14/2018 Magnesium Ord90 Mag [...] 29.7 pg 06/08/2018 Cbc With Differential Ord2 [place]% 8.7 % 06/08/2018 Cbc With Differential Ord2 [...] 2.14 K/ul 06/08/2018 Cbc With Differential Ord2 [place] ABS# 0.5 K/ul 06/08/2018 Cbc With Differential Ord2 Eos ABS# 0.2 K/ul 06/08/2018 Cbc With Differential Ord2 Baso ABS# 0.0 K/ul 06/08/2018 Comp Metabolic Gnr204 NA 139 mEq/L 06/08/2018 Comp Metabolic Xcc804 K 4.6 mEq/L 06/08/2018 Comp Metabolic Bbh234 CL 105 mEq/L 06/08/2018 Comp Metabolic Ddw492 CO2 26.0 mEq/L 06/08/2018 Comp Metabolic Pyo016 ANION GAP 13 06/08/2018 Comp Metabolic Gxh414 GLUCOSE 95 mg/dL 06/08/2018 Comp Metabolic Hup030 Creat 1.2 mg/dL 06/08/2018 Comp Metabolic Jjg914 eGFR 59 ml/min/1.73m2 06/08/2018 Comp Metabolic Zhx449 BUN 12 mg/dL 06/08/2018 Comp Metabolic Wuq238 B/C Ratio 9.7 Ratio 06/08/2018 Comp Metabolic Tcj693 CALCIUM 9.9 mg/dL 06/08/2018 Comp Metabolic Zab355 ALK PHOS 70 U/L 06/08/2018 Comp Metabolic Chy393 AST(SGOT) 21 U/L 06/08/2018 Comp Metabolic Zrk594 ALT(SGPT) 20 U/L 06/08/2018 Comp Metabolic Fmu864 BILI T 1.0 mg/dL 06/08/2018 Comp Metabolic Dge457 ALBUMIN 4.5 g/dL 06/08/2018 Comp Metabolic Znc497 TPRO 7.2 g/dL 06/08/2018 Comp Metabolic Mzz800 GLOB 2.8 g/dL 06/08/2018 Comp Metabolic Lgi641 A/G Ratio 1.6 Ratio 06/08/2018 Comp Metabolic Zah441 Osmo 277 mOsmo 06/08/2018 Cbc With Differential [...] 30.6 pg 05/10/2018 Cbc With Differential Ord2 [place]% 6.5 % 05/10/2018 Cbc With Differential Ord2 [...] 1.94 K/ul 05/10/2018 Cbc With Differential Ord2 [place] ABS# 0.4 K/ul 05/10/2018 Cbc With Differential [...] Ord30 C/HDL 4.2 Ratio 01/26/2018 Comp Metabolic Hnq291 NA 138 mEq/L 01/26/2018 Comp Metabolic Ogk457 K 4.2 mEq/L 01/26/2018 Comp Metabolic Vvc787 CL 105 mEq/L 01/26/2018 Comp Metabolic Qcm156 CO2 23.0 mEq/L 01/26/2018 Comp Metabolic Blt883 ANION GAP 14 01/26/2018 Comp Metabolic Yji174 GLUCOSE 89 mg/dL 01/26/2018 Comp Metabolic Yxp373 Creat 1.1 mg/dL 01/26/2018 Comp Metabolic Ukc077 eGFR 70 ml/min/1.73m2 01/26/2018 Comp Metabolic Exd160 BUN 18 mg/dL 01/26/2018 Comp Metabolic Lpf811 B/C Ratio 16.8 Ratio 01/26/2018 Comp Metabolic Xwq630 CALCIUM 9.2 mg/dL 01/26/2018 Comp Metabolic Vdf127 ALK PHOS 67 U/L 01/26/2018 Comp Metabolic Xyi325 AST(SGOT) 31 U/L 01/26/2018 Comp Metabolic Cyd297 ALT(SGPT) 23 U/L 01/26/2018 Comp Metabolic Kcm009 BILI T 1.7 mg/dL 01/26/2018 Comp Metabolic Nsq812 ALBUMIN 3.9 g/dL 01/26/2018 Comp Metabolic Yzi750 TPRO 6.7 g/dL 01/26/2018 Comp Metabolic Yut718 GLOB 2.8 g/dL 01/26/2018 Comp Metabolic Gsg750 A/G Ratio 1.4 Ratio 01/26/2018 Comp Metabolic Caj269 Osmo 277 mOsmo 01/26/2018 Cbc With Differential [...] 30.7 pg 01/26/2018 Cbc With Differential Ord2 [place]% 7.1 % 01/26/2018 Cbc With Differential Ord2 [...] 2.40 K/ul 01/26/2018 Cbc With Differential Ord2 [place] ABS# 0.5 K/ul 01/26/2018 Cbc With Differential Ord2 Eos ABS# 0.2 K/ul 01/26/2018 Cbc With Differential Ord2 Baso ABS# 0.0 K/ul 01/26/2018 Tsh Ord6 TSH (3rd IS) 1.81 uIU/mL 01/26/2018 Testosterone Mfk609 Testo 370.3 ng/dL 01/26/2018 C A/B FLU [id number] Influenza A Scr Negative 12/08/2017 C A/B FLU [id number] Influenza B Scr Negative 12/08/2017 C A/B FLU [id number] Influenza Intrp B AG: PRID:PT:NOSE:NOM:IF See Footnote [...] 30.8 pg 04/11/2017 Cbc With Differential Ord2 [place]% 8.1 % 04/11/2017 Cbc With Differential Ord2 [...] 1.91 K/ul 04/11/2017 Cbc With Differential Ord2 [place] ABS# 0.5 K/ul 04/11/2017 Cbc With Differential Ord2 Eos ABS# 0.2 K/ul 04/11/2017 Cbc With Differential Ord2 Baso ABS# 0.0 K/ul 04/11/2017 Comp Metabolic Yef760 NA 140 mEq/L 04/11/2017 Comp Metabolic Odf845 K 4.1 mEq/L 04/11/2017 Comp Metabolic Ayl054 CL 105 mEq/L 04/11/2017 Comp Metabolic Xbo499 CO2 26.0 mEq/L 04/11/2017 Comp Metabolic Wgl595 ANION GAP 13 04/11/2017 Comp Metabolic Xib299 GLUCOSE 88 mg/dL 04/11/2017 Comp Metabolic Fmo684 Creat 1.1 mg/dL 04/11/2017 Comp Metabolic Qov542 eGFR 66 ml/min/1.73m2 04/11/2017 Comp Metabolic Lvl997 BUN 18 mg/dL 04/11/2017 Comp Metabolic Wfx626 B/C Ratio 15.9 Ratio 04/11/2017 Comp Metabolic Qih507 CALCIUM 9.0 mg/dL 04/11/2017 Comp Metabolic Evt499 ALK PHOS 72 U/L 04/11/2017 Comp Metabolic Eol862 AST(SGOT) 22 U/L 04/11/2017 Comp Metabolic Akg609 ALT(SGPT) 26 U/L 04/11/2017 Comp Metabolic Mnz760 BILI T 1.0 mg/dL 04/11/2017 Comp Metabolic Vix029 ALBUMIN 4.0 g/dL 04/11/2017 Comp Metabolic Rst554 TPRO 6.4 g/dL 04/11/2017 Comp Metabolic Aay434 GLOB 2.4 g/dL 04/11/2017 Comp Metabolic Wvb814 A/G Ratio 1.6 Ratio 04/11/2017 Comp Metabolic Abj663 Osmo 281 mOsmo 04/11/2017 Vitamin D 25 Oh Tih6612 VITAMIN D, 25 HYDROXY 65.52 ng/mL Cbc [...] 28.5 pg 05/18/2016 Cbc With Differential Ord2 [place]% 7.2 % 05/18/2016 Cbc With Differential Ord2 [...] 1.80 K/ul 05/18/2016 Cbc With Differential Ord2 [place] ABS# 0.4 K/ul 05/18/2016 Cbc With Differential Ord2 Eos ABS# 0.2 K/ul 05/18/2016 Cbc With Differential Ord2 Baso ABS# 0.0 K/ul 05/18/2016 Magnesium Ord90 Mag 2.0 mg/dL 05/18/2016 Renal Rse333 NA 139 mEq/L 05/18/2016 Renal Ayj721 K 4.0 mEq/L 05/18/2016 Renal Cwl019 CL 104 mEq/L 05/18/2016 Renal Fzy069 CO2 27.0 mEq/L 05/18/2016 Renal Jkb898 ANION GAP 12 05/18/2016 Renal Xko314 Osmo 279 mOsmo 05/18/2016 Renal Foz991 GLUCOSE 91 mg/dL 05/18/2016 Renal Yaa176 BUN 18 mg/dL 05/18/2016 Renal Tol508 Creat 1.3 mg/dL 05/18/2016 Renal Snp234 eGFR 59 ml/min/1.73m2 05/18/2016 Renal Qfq715 B/C Ratio 14.3 Ratio 05/18/2016 Renal Yuk905 CALCIUM 9.3 mg/dL 05/18/2016 Renal Www489 PHOS 3.2 mg/dL 05/18/2016 Renal Mbv593 ALBUMIN 4.2 g/dL 05/18/2016 Random Urine Protein/Creatinine Ratio Qtb0994 U Prot 15.0 mg/dl 05/18/2016 Random Urine Protein/Creatinine Ratio Ihm0012 U CREAT 141.0 mg/dL 05/18/2016 Random Urine Protein/Creatinine Ratio Jdk6862 R MTP/Creat Ratio 0.11 05/18/2016 Urinalysis Ord28 [...] 28.5 pg 02/19/2016 Cbc With Differential Ord2 [place]% 9.5 % 02/19/2016 Cbc With Differential Ord2 [...] 1.91 K/ul 02/19/2016 Cbc With Differential Ord2 [place] ABS# 0.5 K/ul 02/19/2016 Cbc With Differential Ord2 Eos ABS# 0.2 K/ul 02/19/2016 Cbc With Differential Ord2 Baso ABS# 0.0 K/ul 02/19/2016 Cbc With Differential Ord2 New Analyzer Notice Please note new ref ranges starting 10-29-2015 due to implemntation of new five part differential hematolgy analyzer. 02/19/2016 Tsh Ord6 hTSH II 2.10 uIU/mL 02/19/2016 Comp Metabolic Izh115 NA 138 mEq/L 02/19/2016 Comp Metabolic Swi465 K 3.8 mEq/L 02/19/2016 Comp Metabolic Ofh434 CL 103 mEq/L 02/19/2016 Comp Metabolic Uzb082 CO2 28.0 mEq/L 02/19/2016 Comp Metabolic Jxe647 ANION GAP 11 02/19/2016 Comp Metabolic Fui947 GLUCOSE 94 mg/dL 02/19/2016 Comp Metabolic Bfx727 Creat 1.0 mg/dL 02/19/2016 Comp Metabolic Vxu509 eGFR 75 ml/min/1.73m2 02/19/2016 Comp Metabolic Eie699 BUN 18 mg/dL 02/19/2016 Comp Metabolic Qzh266 B/C Ratio 17.6 Ratio 02/19/2016 Comp Metabolic Shj964 CALCIUM 9.6 mg/dL 02/19/2016 Comp Metabolic Oli213 ALK PHOS 93 U/L 02/19/2016 Comp Metabolic Utx860 AST(SGOT) 23 U/L 02/19/2016 Comp Metabolic Lnz740 ALT(SGPT) 19 U/L 02/19/2016 Comp Metabolic Pud321 BILI T 0.8 mg/dL 02/19/2016 Comp Metabolic Pbu987 ALBUMIN 4.1 g/dL 02/19/2016 Comp Metabolic Rok258 TPRO 6.8 g/dL 02/19/2016 Comp Metabolic Mlp854 GLOB 2.7 g/dL 02/19/2016 Comp Metabolic Oqk126 A/G Ratio 1.5 Ratio 02/19/2016 Comp Metabolic Xsu290 Osmo 277 mOsmo 02/19/2016 Uric Acid Ord77 Uric A 6.0 mg/dL 02/19/2016 Total Psa Ord10 PSA 0.82 ng/mL 02/19/2016 Comp Metabolic Wcq400 NA 140 mEq/L 12/16/2015 Comp Metabolic Jkz431 K 4.0 mEq/L 12/16/2015 Comp Metabolic Ruj121 CL 105 mEq/L 12/16/2015 Comp Metabolic Dtz488 CO2 24.0 mEq/L 12/16/2015 Comp Metabolic Rsv099 ANION GAP 15 12/16/2015 Comp Metabolic Keb160 GLUCOSE 85 mg/dL 12/16/2015 Comp Metabolic Hec678 Creat 1.2 mg/dL 12/16/2015 Comp Metabolic Lns546 eGFR 65 ml/min/1.73m2 12/16/2015 Comp Metabolic Azp059 BUN 14 mg/dL 12/16/2015 Comp Metabolic Dpr151 B/C Ratio 12.1 Ratio 12/16/2015 Comp Metabolic Etw800 CALCIUM 9.1 mg/dL 12/16/2015 Comp Metabolic Qjc723 ALK PHOS 162 U/L 12/16/2015 Comp Metabolic Zju748 AST(SGOT) 14 U/L 12/16/2015 Comp Metabolic Heh517 ALT(SGPT) 17 U/L 12/16/2015 Comp Metabolic Dit579 BILI T 1.0 mg/dL 12/16/2015 Comp Metabolic Epz125 ALBUMIN 3.4 g/dL 12/16/2015 Comp Metabolic Eht804 TPRO 6.2 g/dL 12/16/2015 Comp Metabolic Oxa940 GLOB 2.9 g/dL 12/16/2015 Comp Metabolic Vdr678 A/G Ratio 1.2 Ratio 12/16/2015 Comp Metabolic Lvj148 Osmo 279 mOsmo 12/16/2015 Uric Acid Ord77 [...] 29.9 % 12/16/2015 Cbc With Differential Ord2 Camas% 7.5 % 12/16/2015 Cbc With Differential Ord2 [...] 1.52 K/ul 12/16/2015 Cbc With Differential Ord2 Camas ABS# 0.4 K/ul 12/16/2015 Cbc With Differential [...] C/HDL 4.0 Ratio 07/21/2015 Urine Protein 24Hr Enl369 U Prot 5.1 mg/dl 05/16/2015 Urine Protein 24Hr Nvk975 U Prot24 71.5 mg/24hr 05/16/2015 Total Volume Urine Btu081 TV/24hr 1400 ml 05/16/2015 Total Psa Ord10 PSA 0.70 ng/mL 05/15/2015 Renal Jox018 NA 135 mEq/L 05/15/2015 Renal Zvg243 K 3.9 mEq/L 05/15/2015 Renal Vlw646 CL 101 mEq/L 05/15/2015 Renal Fab250 CO2 27.0 mEq/L 05/15/2015 Renal Mnr119 ANION GAP 11 05/15/2015 Renal Adk917 Osmo 274 mOsmo 05/15/2015 Renal Cpb563 GLUCOSE 132 mg/dL 05/15/2015 Renal Rmp624 BUN 19 mg/dL 05/15/2015 Renal Glc128 Creat 1.1 mg/dL 05/15/2015 Renal Pkm888 eGFR 67 ml/min/1.73m2 05/15/2015 Renal Uvm030 B/C Ratio 17.0 Ratio 05/15/2015 Renal Qkt413 CALCIUM 9.6 mg/dL 05/15/2015 Renal Hit649 PHOS 3.0 mg/dL 05/15/2015 Renal Idx092 ALBUMIN 4.3 g/dL 05/15/2015 Cbc With Differential [...] Systems System Result Effective Dates Constitutional No chills 09/26/2018 Constitutional No diaphoresis [...] Formatting Model/CDA Sections, Assigned to/Sharee Ramirez CPT-4: 79124Jydmgfu 07/05/2018 THER/PROPH/DIAG INJ SC/IM CPT-4: 34678 06/12/2018 TRIAMCINOLONE ACET INJ NOS CPT-4: J3301 06/12/2018 PPPS, SUBSEQ VISIT CPT -4: G0439 08/03/2017 ADMIN INFLUENZA VIRUS VAC CPT-4: G0008 06/28/2016 FLU VACC PRSV FREE INC ANTIG CPT-4: 67367 06/28/2016 TENIVAC TD VACCINE NO PRSRV 7/> IM CPT-4: 89928 06/28/2016 OCCULT BLOOD FECES CPT -4: 64060 02/19/2015 Vital Signs Date Vital 09/26/2018 Blood Pressure 1: 130/80 Code : 8480-6 BMI: 29.6 Code : 65352-0 Heart Rate 1 : 98 bpm Height: 6' SpO2: 93% Weight: 218 lbs 08/10/2018 BMI: 29.4 Code: 34493-7 Height: 6' Weight: 217 lbs 07/26/2018 Blood Pressure 1: 116/72 Code : 8480-6 BMI: 29.4 Code : 40950-8 Heart Rate 1 : 102 bpm Height: 6' SpO2: 96% Weight: 217 lbs 07/05/2018 Blood Pressure 1: 132/72 Code : 8480-6 Heart Rate 1: 60 bpm SpO2: 95% 06/12/2018 Blood Pressure 1: 120/78 Code : 8480-6 BMI: 29.6 Code : 11747-8 Heart Rate 1 : 103 bpm Height: 6' SpO2: 96% Weight: 218 lbs 05/10/2018 Blood Pressure 1: 114/68 Code : 8480-6 BMI: 29.4 Code : 94785-2 Heart Rate 1 : 92 bpm Height: 6' SpO2: 97% Weight: 217 lbs 03/27/2018 Blood Pressure 1: 126/74 Code : 8480-6 BMI: 30.1 Code : 58764-7 Heart Rate 1 : 103 bpm Height: 6' SpO2: 96% Weight: 222 lbs 01/25/2018 Blood Pressure 1: 122/70 Code : 8480-6 Blood Pressure 2: 12673 Code: 8480-6 Heart Rate 1: 63 bpm SpO2: 94% 01/24/2018 Blood Pressure 1: 11072 Code : 8480-6 BMI: 29.7 Code : 62243-2 Heart Rate 1 : 88 bpm Height: 6' SpO2: 95% Weight: 219 lbs 12/08/2017 Blood Pressure 1: 12068 Code : 8480-6 BMI: 30.0 Code : 87494-2 Heart Rate 1 : 91 bpm Height: 6' SpO2: 96% Temperature: 36.7 (C) / 98.1 (F) Weight: 221 lbs 10/27/2017 Blood Pressure 1: 124/76 Code : 8480-6 BMI: 30.1 Code : 42539-6 Heart Rate 1 : 69 bpm Height: 6' SpO2: 95% Weight: 222 lbs 09/29/2017 Blood Pressure 1: 118 Code : 8480-6 BMI: 29.9 Code : 03867-0 Heart Rate 1 : 81 bpm Height: 6' SpO2: 95% Weight: 220 lbs 8 oz 09/01/2017 Blood Pressure 1: 122/82 Code : 8480-6 BMI: 29.6 Code : 02235-5 Heart Rate 1 : 75 bpm Height: 6' SpO2: 97% Weight: 218 lbs 08/03/2017 Blood Pressure 1: 12068 Code : 8480-6 Heart Rate 1: 68 bpm Height: 6' SpO2: 94% Waist Measure (cm): 97 cm 04/26/2017 Blood Pressure 1: 122/72 Code : 8480-6 BMI: 29.4 Code : 74173-1 Heart Rate 1 : 85 bpm Height: 6' SpO2: 92% Weight: 217 lbs 01/25/2017 Blood Pressure 1: 118/78 Code : 8480-6 BMI: 29.4 Code : 49386-6 Heart Rate 1 : 72 bpm Height: 6' SpO2: 94% Temperature: 36.9 (C) / 98.5 (F) Weight: 217 lbs 10/26/2016 Blood Pressure 1: 152/86 Code : 8480-6 BMI: 29.7 Code : 48471-5 Heart Rate 1 : 58 bpm Height: 6' Weight: 219 lbs 09/27/2016 Blood Pressure 1: 138/80 Code : 8480-6 BMI: 29.4 Code : 19261-8 Heart Rate 1 : 52 bpm Height: 6' SpO2: 98% Weight: 217 lbs 06/28/2016 Blood Pressure 1: 128/86 Code : 8480-6 BMI: 29.6 Code : 94625-4 Heart Rate 1 : 69 bpm Height: 6' SpO2: 93% Weight: 218 lbs 04/27/2016 Blood Pressure 1: 118/82 Code : 8480-6 BMI: 29.3 Code : 72013-8 Heart Rate 1 : 85 bpm Height: 6' SpO2: 98% Weight: 216 lbs 02/17/2016 Blood Pressure 1: 132/80 Code : 8480-6 BMI: 28.8 Code : 20560-9 Heart Rate 1 : 94 bpm Height: 6' SpO2: 98% Weight: 212 lbs 01/20/2016 Blood Pressure 1: 120/70 Code : 8480-6 BMI: 29.7 Code : 81169-6 Heart Rate 1 : 87 bpm Height: 6' SpO2: 92% Weight: 219 lbs 01/06/2016 Blood Pressure 1: 122/88 Code : 8480-6 BMI: 28.8 Code : 64612-5 Heart Rate 1 : 83 bpm Height: [...] Code : 8480-6 BMI: 30.5 Code : 67159-6 Heart Rate 1 : 82 bpm Height: 6' SpO2: 92% Weight: 225 lbs 06/09/2015 Blood Pressure 1: 130/76 Code : 8480-6 BMI: 31.1 Code : 29744-5 Heart Rate 1 : 65 bpm Height: 6' SpO2: 96% Weight: 229 lbs 04/29/2015 Blood Pressure 1: 118/78 Code : 8480-6 BMI: 30.7 Code : 08192-8 Heart Rate 1 : 70 bpm Height: 6' Weight: 226 lbs 02/19/2015 Blood Pressure 1: 118/70 Code : 8480-6 BMI: 29.7 Code : 94936-1 Heart Rate 1 : 68 bpm Height: 6' Weight: 219 lbs Functional Status No Functional Status data History of Present Illness Symptom Name Status Result Effective Date Notes Quality intermittent 09/26/2018 None Onset and Resolution [...] data Encounters Encounter Performer Location Codes Date ([id number]) 31114 EST. PATIENT, LEVEL IV Diagnosis: Essential (primary) hypertension[ICD10: I10] Diagnosis: Vertigo of central origin, right ear[ICD10: H81.41] Diagnosis: Low back pain[ICD10: M54.5] Lesley Butcher MD, [facility] CPT- 4: 80242 09/26/2018 ([id number]) 56005 EST. PATIENT, LEVEL III Diagnosis: Dizziness and giddiness[ICD10: R42] Diagnosis: Vertigo of central origin, right ear[ICD10: H81.41] Diagnosis: Essential (primary) hypertension[ICD10: I10] Lesley Butcher MD, [facility] CPT-4: 10754 07/26/2018 ([id number]) 50152 EST. PATIENT, LEVEL III Diagnosis: Essential (primary) hypertension[ICD10: I10] Lesley Butcher MD, [facility] CPT-4: 69404 06/12/2018 ([id number]) 18382 EST. PATIENT, LEVEL IV Diagnosis: Other iron deficiency anemias[ICD10: D50.8] Diagnosis: Weakness[ICD10: R53.1] Diagnosis: Diverticulosis of large intestine without perforation or abscess with bleeding[ICD10: K57.31] Lesley Butcher MD, [facility] CPT-4: 97772 05/10/2018 ([id number]) 62300 EST. PATIENT, LEVEL IV Diagnosis: Essential (primary) hypertension[ICD10: I10] Diagnosis: Major depressive disorder, recurrent, mild[ICD10: F33.0] Diagnosis: Sensorineural hearing loss, bilateral[ICD10: H90.3] Lesley Butcher MD, [facility] CPT-4: 62637 03/27/2018 ([id number]) Miscellaneous no charge Diagnosis: Essential (primary) hypertension[ICD10: I10] Mady Butcher MD, [facility] CPT-4: 52003 01/25/2018 ([id number]) 76274 EST. PATIENT, LEVEL IV Diagnosis: Essential (primary) hypertension[ICD10: I10] Diagnosis: Sensorineural hearing loss, bilateral[ICD10: H90.3] Diagnosis: Mixed hyperlipidemia[ICD10: E78.2] Diagnosis: Major depressive disorder, recurrent, mild[ICD10: F33.0] Lesley Butcher MD, [facility] CPT-4: 41780 01/24/2018 72744 EST. PATIENT, LEVEL IV Diagnosis: Other malaise[ICD10: R53.81] Diagnosis: Fever, unspecified[ICD10: R50.9] Mady Butcher MD, [facility] CPT- 4: 72366 12/08/2017 ([id number]) 50883 EST. PATIENT, LEVEL III Diagnosis: Essential (primary) hypertension[ICD10: I10] Lesley Butcher MD, [facility] CPT-4: 76552 10/27/2017 ([id number]) 03878 EST. PATIENT, LEVEL III Diagnosis: Benign prostatic hyperplasia with lower urinary tract symptoms[ICD10 : N40.1] Diagnosis: Dysphagia, pharyngeal phase[ICD10: R13.13] Lesley Butcher MD, [facility] CPT-4: 24444 09/29/2017 ([id number]) 63077 EST. PATIENT, LEVEL IV Diagnosis: Essential (primary) hypertension[ICD10: I10] Diagnosis: Major depressive disorder, recurrent, mild[ICD10: F33.0] Diagnosis: Sensorineural hearing loss, bilateral[ICD10: H90.3] Lesley Butcher MD, [facility] CPT-4: 10890 09/01/2017 ([id number]) 30551 EST. PATIENT, LEVEL IV Diagnosis: Essential (primary) hypertension[ICD10: I10] Diagnosis: Major depressive disorder, recurrent, mild[ICD10: F33.0] Diagnosis: Mixed hyperlipidemia[ICD10: E78.2] Lesley Butcher MD, [facility] CPT-4: 63142 04/26/2017 ([id number]) 81562 EST. PATIENT, LEVEL IV Diagnosis: Essential (primary) hypertension[ICD10: I10] Diagnosis: Major depressive disorder, recurrent, mild[ICD10: F33.0] Diagnosis: Urge incontinence[ICD10: N39.41] Lesley Butcher MD, [facility] CPT-4: 61487 01/25/2017 ([id number]) 20506 EST. PATIENT, LEVEL IV Diagnosis: Essential (primary) hypertension[ICD10: I10] Diagnosis: Major depressive disorder, recurrent, mild[ICD10: F33.0] Diagnosis: Urge incontinence[ICD10: N39.41] Lesley Butcher MD, [facility] CPT-4: 67106 10/26/2016 [id number]) 78871 EST. PATIENT, LEVEL III Diagnosis: Essential (primary) hypertension[ICD10: I10] Diagnosis: Major depressive disorder, recurrent, mild[ICD10: F33.0] Diagnosis: Urge incontinence[ICD10: N39.41] Lesley Butcher MD, [facility] CPT-4: 42825 09/27/2016 ([id number]) 20451 EST. PATIENT, LEVEL IV Diagnosis: Essential (primary) hypertension[ICD10: I10] Diagnosis: Encounter for immunization[ICD10: Z23] Diagnosis: Laceration without foreign body of left forearm, initial encounter[ ICD10: S51.812A] Diagnosis: Laceration without foreign body of right forearm, initial encounter[ ICD10: S51.811A] Diagnosis: Major depressive disorder, recurrent, mild[ICD10: F33.0] Lesley Butcher MD, [facility] CPT-4: 03951 06/28/2016 ([id number]) 92347 EST. PATIENT, LEVEL IV Diagnosis: Essential (primary) hypertension[ICD10: I10] Diagnosis: Idiopathic gout, left ankle and foot[ICD10: M10.072] Diagnosis: Other iron deficiency anemias[ICD10: D50.8] Lesley Butcher MD, [facility] CPT-4: 37495 04/27/2016 ([id number]) 81106 EST. PATIENT, LEVEL V Diagnosis: Essential (primary) hypertension[ICD10: I10] Diagnosis: Major depressive disorder, recurrent, mild[ICD10: F33.0] Diagnosis: Idiopathic gout, left ankle and foot[ICD10: M10.072] Diagnosis: Mixed hyperlipidemia[ICD10: E78.2] Lesley Butcher MD, [facility] CPT-4: 86932 02/17/2016 ([id number]) 43548 EST. PATIENT, LEVEL IV Diagnosis: Idiopathic gout, left ankle and foot[ICD10: M10.072] Diagnosis: Major depressive disorder, single episode, unspecified[ICD10: F32.9] Diagnosis: Localized edema[ICD10: R60.0] Merline Butcher MD, [facility] CPT-4: 89539 01/20/2016 12110 EST. PATIENT, LEVEL IV Diagnosis: Idiopathic gout, left ankle and foot[ICD10: M10.072] Diagnosis: Essential (primary) hypertension[ICD10: I10] Diagnosis: Major depressive disorder, single episode, unspecified[ICD10: F32.9] Lesley Butcher MD, [facility] CPT-4: 73340 01/06/2016 18761 EST. PATIENT, LEVEL IV Diagnosis: Weakness[ICD10: R53.1] Diagnosis: Gout, unspecified[ICD10: M10.9] Diagnosis: Hypotension, unspecified[ICD10: I95.9] Lesley Butcher MD, [facility] CPT-4: 40292 12/16/2015 ([id number]) Patient admitted to the hospital from clinic (NO CHARGE) Diagnosis: Hypoxemia[ICD10: R09.02] Diagnosis: Weakness[ICD10: R53.1] Diagnosis: Dyspnea, unspecified[ICD10: R06.00] Mady Butcher MD, [facility] CPT-4: 99220T 11/27/2015 ([id number]) 72704 EST. PATIENT, LEVEL III Diagnosis: Essential (primary) hypertension[ICD10: I10] Diagnosis: Gastro-esophageal reflux disease without esophagitis[ICD10: K21.9] Lesley Butcher MD, [facility] CPT-4: 64358 07/30/2015 ([id number] 29129 EST. PATIENT, LEVEL III Diagnosis: ESSENTIAL HYPERTENSION[ICD9: 401.9] Merline Rose Lesley Butcher MD, [facility] CPT-4: 32216 06/09/2015 ([id number]) 66903 EST. PATIENT, LEVEL III Diagnosis: ESSENTIAL HYPERTENSION[ICD9: 401.9] [facility] CPT-4: 38081 04/29/2015 ([id number]) OFFICE/OUTPATIENT VISIT NEW Diagnosis: ESSENTIAL HYPERTENSION[ICD9: 401.9] Diagnosis: DEPRESSIVE DISORDER NEC[ICD9: 311] Diagnosis: Enlarged prostate[ICD9: 600.00] Diagnosis: Nasal inflammation due to allergen[ICD9: 477.9] [facility] CPT-4: 51636 02/19/2015 Plan of Care Planned Activity Notes Codes Status Date Visit Plan: Hypertension - well controlled - [...] cryotherapy sessions. 09/26/2018 Appointment: Lesley Butcher WPtel: [address] [place], [place] [phone] (15 min) Moderate 09/26/2018 Patient Education: Patient [...] care surrogate. 08/10/2018 Appointment: Mady Dunne WPtel: [phone] [facility] [facility] - Annual Wellness Visit 08/10/2018 Patient Education: [...] at home. 07/26/2018 Appointment: Lesley Butcher WPtel: [facility]9 [facility] (15 min) Moderate 07/26/2018 Patient Education: Patient [...] his dexamethasone. 06/12/2018 Appointment: Lesley Butcher WPtel: [facility]7 [facility] (15 min) Moderate 06/12/2018 Patient Education: Patient Medication Summary Completed 06/12/2018 Visit Plan: Diverticulosis with recent GI bleeding - improved - continue with supportive care, avoid foods which cause any abdominal pain - monitor symptoms - call if any pain or bleeding recurs. Anemia - check labs today. Weakness - continue with increasing of activity. 05/10/2018 Appointment: Lesley Butcher WPtel: [facility] (30 min) Complex 05/10/2018 Patient Education: [...] cochlear implant. 03/27/2018 Appointment: [phone] (15 min) Moderate 03/27/2018 Patient Education: Patient [...] to medications. 01/24/2018 Appointment: Lesley Butcher WPtel: [facility] (15 min) Moderate 01/24/2018 Patient Education: Patient Medication Summary Completed 01/24/2018 Visit Plan: Influenza - pt started on tamiflu - pt to start on anti-inflammatories, tylenol and monitor symptoms. Pt to call if not improving. Pt to alert any close contacts as to illness. 12/08/2017 Appointment: [phone] (30 min) Complex 12/08/2017 Patient Education: Patient Medication Summary Completed 12/08/2017 Visit Plan: Hypertension - well controlled - continue with current medications, continue with no added salt diet. Pt has been encouraged to exercise daily. The pt has been advised to call the office if there are any acute concerns about change in blood pressure readings at home. 10/27/2017 Appointment: Lesley Butcher WPtel: [phone] [facility] (15 min) Moderate 10/27/2017 Patient Education: Patient Medication Summary Completed 10/27/2017 Referral: External, Ordering Provider Referral Initiated 10/12/2017 Visit Plan: BPH - continue with dutasteride and flomax Dysphagia - referral to Dr. Kumar for EGD - question stricture - dysphagia intermittently - hx of stricture. 09/29/2017 Appointment: Lesley Butcher [facility]Ptel[phone] [place] (15 min) Moderate 09/29/2017 Patient Education: Patient Medication Summary Completed 09/29/2017 Care Plan: Referral Order SNOMED-CT : [id number] Pending 09/29/2017 Visit Plan: Hypertension - well [...] recommended patient to have an evaluation at [facility] to see if he has potential for cochlear implant. 09/01/2017 Appointment: Lesley Butcher WPtel: [phone] [facility] [place] (15 min) Moderate 09/01/2017 Patient Education: Patient Medication Summary Completed 09/01/2017 Care Plan: Referral Order SNOMED-CT : [id number] Pending 09/01/2017 Visit Plan: Medicare Exam - [...] surrogate. 08/03/2017 Appointment: Mady Dunne WPtel: [phone] [facility] - Welcome to Medicare visit 08/03/2017 Patient [...] medications. 04/26/2017 Appointment: Lesley Butcher WPtel: [phone] [facility] [place] [place] (15 min) Moderate 04/26/2017 Patient Education: Patient [...] daily. 01/25/2017 Appointment: Lesley Butcher WPtel: [phone] [facility] (30 min) Complex 01/25/2017 Patient Education: Patient [...] [place] 10/26/2016 Appointment: Lesley Butcher WPtel: [phone] [facility] (15 min) Moderate 10/26/2016 Patient Education: Patient [...] retention occur. 09/27/2016 Appointment: Lesley Butcher WPtel: [phone] [facility] (15 min) Moderate 09/27/2016 Patient Education: Patient [...] shelli khalilter 06/28/2016 Appointment: Lesley Butcher WPtel: [address] [place], [place] [address] (15 min) Moderate 06/28/2016 Patient Education: Patient [...] Chronic gout-symptoms stable-continue allopurinol Allergies-recommend allergy eye drops-nagela Vang-increase dexamethasone x 1 month 02/17/2016 Appointment: Merline Rose WPtel: [address] [place], [place] [phone] (30 min) Complex 02/17/2016 Patient Education: Patient [...] Summary Completed 12/16/2015 Appointment: Lesley Butcher WPtel: [facility] (15 min) Moderate 12/04/2015 Appointment: Lesley Butcher WPtel: [facility] (15 min) Moderate 12/02/2015 Visit Plan: Admission to Hospital - Dr. Butcher in to see pt. Pt has diagnosis of acute illness necessitating hospital admission from the clinic. I have discussed the diagnosis and need for further work-up and acute hospital stay for the patient's health benefit. 11/27/2015 Visit Plan: Admission to Hospital - [...] AND EVALUATION OF THE ACUTE ILLNESS. 11/27/2015 Appointment: (15 min) Moderate 11/27/2015 Patient [...] PHARMACY 07/30/2015 Appointment: Lesley Butcher WPtel: [phone] [facility] (15 min) Moderate 07/30/2015 Patient Education: [...] at home. 04/29/2015 Appointment: Lesley Butcher WPtel: [phone] [facility] (15 min) Moderate 04/29/2015 Patient Education: Patient [...] External, Ordering Provider Referral Appointment Requested Referral: [facility] 09/12 Referral info faxed Appointment Requested Referral: [facility] Referral Appointment Requested Instructions Comment . Hypertension - well controlled - continue with current medications, continue with no added salt diet. Pt has been encouraged to exercise daily. The pt has been advised to call the office if there are any acute concerns about change in blood pressure readings at home. . Gout Attack - pt given rx [...] for pt to restart his dexamethasone. . Hypertension - well controlled - continue [...] her DOPA paperwork for health care surrogate. increase citalopram to 40mg daily . Hypertension [...] today agree with appt with shelli andrea CHECK FASTING LABS DEXAMETHASONE 0.5MG-TAKE A FULL [...] physical exam, and the assessment and plan. CHECK FASTING LABS DEXAMETHASONE 0.5MG-TAKE A FULL [...] eye drops-angela Vang-increase dexamethasone x 1 month the light-headedness that you are experiencing is [...] Hearing loss - improved with cochlear implant. change spironolactone to early afternoon hold the plavix 72 hours prior to planned injection in back and call the osd clerk about a biopsy of the lesion on [...] healed after the last two cryotherapy sessions. . Diverticulosis with recent GI bleeding - improved - continue with supportive care, avoid foods which cause any abdominal pain - monitor symptoms - call if any pain or bleeding recurs. Anemia - check labs today. Weakness - continue with increasing of activity. . Vertigo - vestibular/cochlearVestibular therapy with Allan [...] spray in the nasal steroid allergy spray. add vitamin b12 dissolving tablets - 2000mcg [...] anemia - continue with oral iron. . Medicare Exam - today we discussed [...] DOPA paperwork for health care surrogate. . Influenza - pt started on tamiflu - pt to start on anti- inflammatories, tylenol and monitor symptoms. Pt to call if not improving. Pt to alert any close contacts as to illness. Take 1/2 tab of Citalopram daily for [...] further attempt to reduce peripheral edema. . Hypertension - well controlled - continue with current medications, continue with no added salt diet. Pt has been encouraged to exercise daily. The pt has been advised to call the office if there are any acute concerns about change in blood pressure readings at home. . Admission to Hospital - Dr. Butcher in to see pt. Pt has diagnosis of acute illness necessitating hospital admission from the clinic. I have discussed the diagnosis and need for further work-up and acute hospital stay for the patient's health benefit. . Admission to Hospital - Dr. Butcher [...] TREATMENT AND EVALUATION OF THE ACUTE ILLNESS. the light-headedness that you are experiencing is [...] recommended patient to have an evaluation at [facility] to see if he has potential for [...]
--- OUTSIDE RECORDS SUMMARY | 2018-12-19 12:41 | XMS REPORT | CCD ---
Author Author [facility] Organization [facility] Address [address] [place] [address] Phone Care Team Providers Care Government Instructor Name Role Phone PP Unavailable CCM Unavailable Summary Purpose Interface Exchange Insurance Providers Payer name Policy type / Coverage type Covered democrat ID Effective Begin Date Effective End Date WPS Medicare Part B Medicare Part B [id number] 2018 Unknown [facility] Medicare Part B [id number] 2018 Unknown Family history Father Diagnosis Age At Onset Hypertension Unknown Coronary Artery Disease Unknown Sister Diagnosis Age At Onset Heart disease Unknown Mother Diagnosis Age At Onset Coronary Artery Disease Unknown Hypertension Unknown Social History Social History Element Codes Description Effective Dates Marital status Unknown 02/19/2015 Number of children Unknown 2 02/19/2015 Employment Unknown Retired 02/19/[address]: 716779844 Has never smoked or chewed tobacco 02/19/2015 Alcohol history Unknown occasionally drinks alcohol 02/19/2015 Allergies, Adverse Reactions, Alerts Substance Reaction Codes Entered Date Inactivated Date Status bactrim RxNorm: 689032 12/19/2015 No Inactive Date Active ciprofloxacin RxNorm: 78972 02/18/2015 No Inactive Date Active Past Medical History Illness Codes Condition Status Onset Date Resolved Date Essential (primary) hypertension ICD-9: 401.9 ICD-10: I10 Active 02/18/2015 Unknown Low back pain ICD-9: 724.2 ICD-10: M54.5 Active 09/26/2018 Unknown Vertigo of central origin, 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 Active 07/26/2018 Unknown Encounter for general adult medical examination with abnormal findings ICD-9: V70.0 ICD-10: Z00.01 Active 08/03/2017 Unknown Dizziness and giddiness ICD-9: 780.4 ICD-10: [...] Problems Condition Codes Effective Dates Condition Status Essential (primary) hypertension ICD-9: 401.9 ICD-10: I10 02/18/2015 Active Low back pain ICD-9: 724.2 ICD-10: M54.5 09/26/2018 Active Vertigo of central origin, 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 07/26/2018 Active Encounter for general adult medical examination with abnormal findings ICD-9: V70.0 ICD-10: Z00.01 08/03/2017 Active Dizziness and giddiness ICD-9: 780.4 ICD-10: [...] Start Date Stop Date Status Fill Instructions atorvastatin 40 mg tablet RxNorm: 919432 1 Tablet(s) PO daily 09/26/2018 10/25/2018 Active dexamethasone 0.5 mg tablet RxNorm: 793392 TAKE 1 TABLET BY MOUTH ONCE DAILY 08/29/2018 No Stop Date Active clonazepam 1 mg tablet RxNorm: 397879 1/2 Tablet(s) PO QHS 05/201812/21/2018 Active allopurinol 100 mg tablet RxNorm: 014283 TAKE ONE TABLET BY MOUTH ONCE DAILY 08/03/2018 No Stop Date Active citalopram 40 mg tablet RxNorm: 945091 TAKE ONE TABLET BY MOUTH ONCE DAILY 06/13/2018 No Stop Date Active Kenalog 40 mg/mL suspension for injection RxNorm: 1661004 Milliliter(s) Inj 06/12/2018 06/12/2018 Inactive clonazepam 1 mg tablet RxNorm: 377592 1 Tablet(s) PO QHS 201708/23/2018 Inactive losartan 50 mg tablet RxNorm: 843394 1/2 Tablet(s) PO daily 05/2018 No Stop Date Active clonazepam 1 mg tablet RxNorm: 653400 1/2 Tablet(s) TAKE ONE TABLET BY MOUTH ONCE DAILY AT BEDTIME AND ONE TABLET THREE TIMES DAILY NEEDED 05/24/2018 06/11/2018 Inactive citalopram 40 mg tablet RxNorm: 066102 1/2 Tablet(s) TAKE ONE TABLET BY MOUTH ONCE DAILY 05/24/2018 09/25/2018 Inactive spironolactone 25 mg tablet RxNorm: 300862 TAKE ONE TABLET BY MOUTH ONCE DAILY 05/22/2018 No Stop Date Active dexamethasone 0.5 mg tablet RxNorm: 074962 TAKE ONE TABLET BY MOUTH ONCE DAILY 02/21/2018 08/28/2018 Inactive Flomax 0.4 mg capsule RxNorm: 944198 TAKE ONE CAPSULE BY MOUTH ONCE DAILY IN THE EVENING 12/19/2017 No Stop Date Active Tamiflu 75 mg capsule RxNorm: 789245 1 Capsule(s) PO BID 201712/12/2017 Inactive clonazepam 1 mg tablet RxNorm: 765519 Tablet(s) TAKE ONE TABLET BY MOUTH ONCE DAILY AT BEDTIME AND ONE TABLET THREE TIMES DAILY NEEDED 11/28/2017 01/26/2018 Inactive pantoprazole 40 mg tablet,delayed release RxNorm: 024829 TAKE ONE TABLET BY MOUTH ONCE DAILY AT BEDTIME 11/07/2017 No Stop Date Active allopurinol 100 mg tablet RxNorm: 624131 TAKE ONE TABLET BY MOUTH ONCE DAILY 10/03/2017 08/02/2018 Inactive pantoprazole 40 mg tablet,delayed release RxNorm: 268756 1 Tablet(s) PO BID 09/01/2017 05/28/2018 Inactive Vitamin B-6 100 mg tablet RxNorm: 248734 1 Tablet(s) PO daily 09/01/2017 06/11/2018 Inactive dutasteride 0.5 mg capsule RxNorm: 973421 1 Capsule(s) PO QPM 09/01/2017 06/11/2018 Inactive spironolactone 25 mg tablet RxNorm: 814769 TAKE ONE TABLET BY MOUTH ONCE DAILY 08/15/2017 05/21/2018 Inactive citalopram 40 mg tablet RxNorm: 443123 TAKE ONE TABLET BY MOUTH ONCE DAILY 08/08/2017 05/04/2018 Inactive dexamethasone 0.5 mg tablet RxNorm: 084370 TAKE ONE TABLET BY MOUTH ONCE DAILY 08/08/2017 11/05/2017 Inactive clonazepam 1 mg tablet RxNorm: 308822 TAKE ONE TABLET BY MOUTH ONCE DAILY AT BEDTIME AND ONE THREE TIMES DAILY NEEDED 05/12/2017 08/08/2017 Inactive clonazepam 1 mg tablet RxNorm: 284744 1 Tablet(s) PO QHS AND 1 TAB PO TID PRN 05/12/2017 05/13/2017 Inactive oxybutynin chloride ER 10 mg tablet,extended release 24 hr RxNorm: 823401 1 Tablet (s) PO daily 04/29/2017 08/02/2017 Inactive dexamethasone 0.5 mg tablet RxNorm: 223631 TAKE ONE TABLET BY MOUTH ONCE DAILY 02/14/2017 04/14/2017 Inactive Flomax 0.4 mg capsule RxNorm: 299188 TAKE ONE CAPSULE BY MOUTH ONCE DAILY IN THE EVENING 02/14/2017 11/10/2017 Inactive pantoprazole 40 mg tablet,delayed release RxNorm: 113142 TAKE ONE TABLET BY MOUTH ONCE DAILY AT BEDTIME 02/14/20172016 Inactive oxybutynin chloride ER 10 mg tablet,extended release 24 hr RxNorm: 243584 1 Tablet (s) PO daily 01/25/2017 04/24/2017 Inactive dexamethasone 0.5 mg tablet RxNorm: 365536 TAKE ONE TABLET BY MOUTH ONCE DAILY 11/10/2016 12/09/2016 Inactive oxybutynin chloride ER 5 mg tablet,extended release 24 hr RxNorm: 601678 1 Tablet( s) PO daily 10/28/2016 10/27/2016 Inactive oxybutynin chloride ER 5 mg tablet,extended release 24 hr RxNorm: 733812 1 Tablet( s) PO daily 10/28/2016 01/24/2017 Inactive Detrol LA 2 mg capsule,extended release RxNorm: 912883 1 Capsule(s) PO QPM 10/26/2016 10/27/2016 Inactive clonazepam 1 mg tablet RxNorm: 898755 1 Tablet(s) PO QHS AND 1 TAB PO TID PRN 10/20/2016 04/17/2017 Inactive dexamethasone 0.5 mg tablet RxNorm: 833455 TAKE ONE TABLET BY MOUTH ONCE DAILY 10/06/2016 11/04/2016 Inactive allopurinol 100 mg tablet RxNorm: 614939 1 Tablet(s) PO daily 09/30/2016 09/24/2017 Inactive Vesicare 5 mg tablet RxNorm: 144875 1 Tablet(s) PO QPM 201512/12/2016 Inactive spironolactone 25 mg tablet RxNorm: 876074 1 Tablet(s) PO daily 08/06/2016 07/31/2017 Inactive citalopram 40 mg tablet RxNorm: 652783 1 Tablet(s) PO daily 09/201606/22/2017 Inactive Plavix 75 mg tablet RxNorm: 272090 1 Tablet(s) PO daily 2015 No Stop Date Active iron ER 159 mg (45 mg iron) tablet,extended release RxNorm: 234959 1 Tablet(s) PO daily 04/27/2016 08/31/2017 Inactive dexamethasone 0.5 mg tablet RxNorm: 066413 1/2 Tablet(s) PO daily 04/27/2016 02/20/2018 Inactive allopurinol 100 mg tablet RxNorm: 791593 1 Tablet(s) PO daily 04/27/2016 09/29/2016 Inactive clonazepam 1 mg tablet RxNorm: 202506 1 Tablet(s) PO QHS and 1 tab po TID prn 04/14/2016 10/07/2016 Inactive allopurinol 100 mg tablet RxNorm: 823698 1 Tablet(s) PO daily 02/17/2016 04/26/2016 Inactive citalopram 20 mg tablet RxNorm: 866952 1 Tablet(s) PO daily 02/201606/27/2016 Inactive Flomax 0.4 mg capsule RxNorm: 021281 1 Capsule(s) PO QPM 201501/13/2017 Inactive [SAVINGS FOR NON-COVERED DRUGS -- BIN:[id number], PCN: ASPROD1, Group: XXXXX, ID # XXXXXXX, Questions: . THIS IS NOT INSURANCE.] pantoprazole 40 mg tablet,delayed release RxNorm: 237680 1 Tablet(s) PO QHS 01/20/2016 01/13/2017 Inactive Colcrys 0.6 mg tablet RxNorm: 457664 1 Tablet(s) PO daily 201503/05/2016 Inactive take daily x 7 days then daily as needed for gout flair colchicine 0.6 mg tablet RxNorm: 362538 1 Tablet(s) PO BID 01/01/2016 Inactive doxycycline hyclate 100 mg tablet RxNorm: 308182 1 Tablet(s) PO BID 12/19/2015 12/28/2015 Inactive doxycycline hyclate 100 mg tablet RxNorm: 820035 1 Tablet(s) PO BID 12/19/2015 12/18/2015 Inactive allopurinol 100 mg tablet RxNorm: 206170 1 Tablet(s) PO daily 12/16/2015 02/16/2016 Inactive colchicine 0.6 mg tablet RxNorm: 901497 Tablet(s) PO 1.2 mg PO in the morning and 0.6 mg at night for 2 days. 12/16/2015 Inactive allopurinol 100 mg tablet RxNorm: 014791 1 Tablet(s) PO daily 12/16/2015 12/15/2015 Inactive Protonix 40 mg tablet,delayed release RxNorm: 582466 1 Tablet(s) PO daily 12/16/2015 01/14/2016 Inactive Bactrim DS 800 mg-160 mg tablet RxNorm: 496149 1 Tablet(s) PO BID 12/16/2015 12/18/2015 Inactive colchicine 0.6 mg tablet RxNorm: 191987 Tablet(s) PO 1.2 mg for the first dose and 0.6 mg an hour after 12/15/20152015 Inactive dexamethasone 0.5 mg tablet RxNorm: 109617 1 Tablet(s) PO 12/1202/09/2016 Inactive Plavix 75 mg tablet RxNorm: 564626 1 Tablet(s) PO every other day 12/12/2015 04/09/2016 Inactive nitroglycerin 0.4 mg sublingual tablet RxNorm: 860400 1 Tablet(s) SL x3 in 15 min as needed 12/12/2015 04/26/2016 Inactive clonazepam 1 mg tablet RxNorm: 254271 1 Tablet(s) PO QHS and 1 tab po TID prn 12/11/2015 12/03/2016 Inactive Goode 5 mg-325 mg tablet RxNorm: 539931 1-2 Tablet(s) PO Q6 as needed 12/11/2015 09/26/2016 Inactive clonazepam 1 mg tablet RxNorm: 842082 1 Tablet(s) PO QHS and 1 tab po TID prn 12/04/2015 12/10/2015 Inactive Flomax 0.4 mg capsule RxNorm: 943019 1 Capsule(s) PO QPM 201401/19/2016 Inactive [SAVINGS FOR NON-COVERED DRUGS -- BIN:[id number], PCN: ASPROD1, Group: XXXXX, ID # XXXXXXX, Questions: . THIS IS NOT INSURANCE.] Flomax 0.4 mg capsule RxNorm: 380595 1 Capsule(s) PO QPM 201409/21/2015 Inactive [SAVINGS FOR NON-COVERED DRUGS -- BIN:511265, PCN: ASPROD1, Group: XXXXX, ID # XXXXXXX, Questions: . THIS IS NOT INSURANCE.] clonazepam 1 mg tablet RxNorm: 450192 1 Tablet(s) PO QHS 201412/03/2015 Inactive coenzyme Q10 10 mg tablet RxNorm: 918115 1 Tablet(s) PO daily 07/30/2015 01/05/2016 Inactive spironolactone 25 mg tablet RxNorm: 374687 1 Tablet(s) PO daily 07/28/2015 07/21/2016 Inactive spironolactone 25 mg tablet RxNorm: 258336 1 Tablet(s) PO daily 07/22/2015 07/27/2015 Inactive clonazepam 1 mg tablet RxNorm: 222914 1 Tablet(s) PO QHS 201408/28/2015 Inactive losartan 25 mg tablet RxNorm: 494191 1 Tablet(s) PO daily 201403/20/2015 Inactive Flonase Allergy Relief 50 mcg/actuation nasal spray, suspension RxNorm: 1 [place] NASAL BID 02/19/2015 04/26/2016 Inactive [SAVINGS FOR NON-COVERED DRUGS -- BIN:322602, PCN: ASPROD1, Group: XXXXX, ID# XXXXXXX, Questions: . THIS IS NOT INSURANCE.] Flomax 0.4 mg capsule RxNorm: 361063 1 Capsule(s) PO QPM 201409/15/2015 Inactive [SAVINGS FOR NON-COVERED DRUGS -- BIN:960574, PCN: ASPROD1, Group: XXXXX, ID # XXXXXXX, Questions: . THIS IS NOT INSURANCE.] citalopram 20 mg tablet RxNorm: 117385 1 Tablet(s) PO daily 03/201503/20/2015 Inactive atenolol 25 mg tablet RxNorm: 287235 1 Tablet(s) PO daily 201403/20/2015 Inactive Lipitor 20 mg tablet RxNorm: 487073 1 Tablet(s) PO daily 201403/20/2015 Inactive vitamin B complex oral RxNorm: 81700 oral No Start Date Active Claritin-D 24 Hour oral RxNorm: 153629 oral No Start Date Active cetirizine 10 mg tablet RxNorm: 4086311 1 Tablet(s) PO daily No Start Date Active Aleve 220 mg tablet RxNorm: 550938 Tablet(s) PO as needed No Start Date Active Vitamin D3 1,000 unit capsule RxNorm: 277490 2 Capsule(s) PO daily No Start Date Active Centrum Complete oral RxNorm: 59542 oral No Start Date Active glucosamine HCl 1,500 mg tablet RxNorm: 045847 1 Tablet(s) with 1200 mg chrondroitin PO daily No Start Date 2017 Inactive ranitidine 150 mg tablet RxNorm: 502652 1 Tablet(s) PO TID No Start Date 12/11/2015 Inactive Goode 5 mg-325 mg tablet RxNorm: 279804 1-2 Tablet(s) PO Q6 as needed No Start Date 12/10/2015 Inactive krill oil oral RxNorm : 70197 oral No Start Date 08/07/2018 Inactive Vitamin B-6 100 mg tablet RxNorm: 765677 1 Tablet(s) PO TID No Start Date 08/31/2017 Inactive spironolactone 25 mg tablet RxNorm: 803414 1 Tablet(s) PO daily No Start Date 07/21/2015 Inactive Vitamin D3 oral RxNorm : 2418 oral No Start Date 02/17/2016 Inactive clonazepam 1 mg tablet RxNorm: 670355 1 Tablet(s) PO daily No Start Date 05/22/2015 Inactive Glucosamine oral RxNorm: 4845 oral No Start Date 04/26/2016 Inactive losartan 50 mg tablet RxNorm: 665382 1 Tablet(s) PO daily No Start Date 05/23/2018 Inactive Plavix 75 mg tablet RxNorm: 767924 1 Tablet(s) PO every other day No Start Date 12/11/2015 Inactive Osteo Bi-Flex oral RxNorm: 0294511 oral No Start Date 09/01/2017 Inactive iron ER 159 mg (45 mg iron) tablet,extended release RxNorm: 850672 1 Tablet(s) PO BID No Start Date 04/26/2016 Inactive amlodipine 5 mg tablet RxNorm: 340268 1 Tablet(s) PO daily No Start Date 01/05/2016 Inactive aspirin 81 mg tablet,delayed release RxNorm: 545995 1 Tablet(s) PO daily No Start Date 05/09/2018 Inactive dexamethasone 0.5 mg tablet RxNorm: 677537 1 Tablet(s) PO No Start Date 12/11/2015 Inactive Vitamin B-12 1,000 mcg tablet RxNorm: 424312 6 Tablet(s) PO every other day No Start Date 06/11/2018 Inactive colchicine 0.6 mg tablet RxNorm: 813872 Tablet(s) PO 1.2 mg for the first dose and 0.6 mg an hour after No Start Date Inactive nitroglycerin 0.4 mg sublingual tablet RxNorm: 768801 1 Tablet(s) SL x3 in 15 min as needed No Start Date 12/11/2015 Inactive Fish Oil 1,000 mg capsule RxNorm: 1 Capsule(s) PO daily No Start Date 04/26/2016 Inactive Ecotrin Low Strength 81 mg tablet,enteric coated RxNorm: 0935214 1 Tablet(s) PO daily No Start Date 09/27/2016 Inactive Medication Administered Medication Codes Instructions Start Date Status Kenalog 40 mg/mL suspension for injection RxNorm: 1452900 Milliliter 06/12/2018 No longer Active Immunizations Vaccine [...] 30.4 pg 10/20/2018 Cbc With Differential Ord2 [place]% 5.7 % 10/20/2018 Cbc With Differential Ord2 [...] 1.69 K/ul 10/20/2018 Cbc With Differential Ord2 [place] ABS# 0.6 K/ul 10/20/2018 Cbc With Differential Ord2 Eos ABS# 0.0 K/ul 10/20/2018 Cbc With Differential Ord2 Baso ABS# 0.0 K/ul 10/20/2018 Urinalysis Ord28 U-Color Yellow 07/14/2018 Urinalysis [...] 29.0 pg 07/14/2018 Cbc With Differential Ord2 [place]% 7.5 % 07/14/2018 Cbc With Differential Ord2 [...] 1.92 K/ul 07/14/2018 Cbc With Differential Ord2 [place] ABS# 0.4 K/ul 07/14/2018 Cbc With Differential Ord2 Eos ABS# 0.2 K/ul 07/14/2018 Cbc With Differential Ord2 Baso ABS# 0.0 K/ul 07/14/2018 Renal Itv573 NA 140 mEq/L 07/14/2018 Renal Hyd096 K 4.2 mEq/L 07/14/2018 Renal Zfb667 CL 103 mEq/L 07/14/2018 Renal Ppu633 CO2 29.0 mEq/L 07/14/2018 Renal Wqp696 ANION GAP 12 07/14/2018 Renal Hdu364 Osmo 280 mOsmo 07/14/2018 Renal Tor425 GLUCOSE 95 mg/dL 07/14/2018 Renal Hke745 BUN 15 mg/dL 07/14/2018 Renal Fba640 Creat 1.2 mg/dL 07/14/2018 Renal Tbm822 eGFR 64 ml/min/1.73m2 07/14/2018 Renal Txa885 B/C Ratio 12.8 Ratio 07/14/2018 Renal Zjt442 CALCIUM 9.6 mg/dL 07/14/2018 Renal Unr727 PHOS 3.2 mg/dL 07/14/2018 Renal Umk015 ALBUMIN 4.4 g/dL 07/14/2018 Magnesium Ord90 Mag [...] 29.7 pg 06/08/2018 Cbc With Differential Ord2 [place]% 8.7 % 06/08/2018 Cbc With Differential Ord2 [...] 2.14 K/ul 06/08/2018 Cbc With Differential Ord2 [place] ABS# 0.5 K/ul 06/08/2018 Cbc With Differential Ord2 Eos ABS# 0.2 K/ul 06/08/2018 Cbc With Differential Ord2 Baso ABS# 0.0 K/ul 06/08/2018 Comp Metabolic Bjt754 NA 139 mEq/L 06/08/2018 Comp Metabolic Wyr469 K 4.6 mEq/L 06/08/2018 Comp Metabolic Clt968 CL 105 mEq/L 06/08/2018 Comp Metabolic Amm018 CO2 26.0 mEq/L 06/08/2018 Comp Metabolic Zpo218 ANION GAP 13 06/08/2018 Comp Metabolic Cnh943 GLUCOSE 95 mg/dL 06/08/2018 Comp Metabolic Fqx349 Creat 1.2 mg/dL 06/08/2018 Comp Metabolic Isf301 eGFR 59 ml/min/1.73m2 06/08/2018 Comp Metabolic Qgg054 BUN 12 mg/dL 06/08/2018 Comp Metabolic Pea497 B/C Ratio 9.7 Ratio 06/08/2018 Comp Metabolic Ssj689 CALCIUM 9.9 mg/dL 06/08/2018 Comp Metabolic Qmh891 ALK PHOS 70 U/L 06/08/2018 Comp Metabolic Ply575 AST(SGOT) 21 U/L 06/08/2018 Comp Metabolic Gim286 ALT(SGPT) 20 U/L 06/08/2018 Comp Metabolic Wrl982 BILI T 1.0 mg/dL 06/08/2018 Comp Metabolic Nlq630 ALBUMIN 4.5 g/dL 06/08/2018 Comp Metabolic Czo871 TPRO 7.2 g/dL 06/08/2018 Comp Metabolic Tem957 GLOB 2.8 g/dL 06/08/2018 Comp Metabolic Cvj791 A/G Ratio 1.6 Ratio 06/08/2018 Comp Metabolic Ipb899 Osmo 277 mOsmo 06/08/2018 Cbc With Differential Ord2 WBC 5.58 K/ul 05/10/2018 Cbc With Differential Ord2 RBC 3.43 M/ul 05/10/2018 Cbc With Differential Ord2 HGB 10.5 g/dl 05/10/2018 Cbc With Differential Ord2 Neut% 55.1 % 05/10/2018 Cbc With Differential Ord2 HCT 31.1 % 05/10/2018 Cbc With Differential Ord2 Lymph% 34.8 % 05/10/2018 Cbc With Differential Ord2 MCV 90.7 fl 05/10/2018 Cbc With Differential Ord2 MCH 30.6 pg 05/10/2018 Cbc With Differential Ord2 [place]% 6.5 % 05/10/2018 Cbc With Differential Ord2 [...] 1.94 K/ul 05/10/2018 Cbc With Differential Ord2 [place] ABS# 0.4 K/ul 05/10/2018 Cbc With Differential [...] Ord30 C/HDL 4.2 Ratio 01/26/2018 Comp Metabolic Rgq796 NA 138 mEq/L 01/26/2018 Comp Metabolic Fyq013 K 4.2 mEq/L 01/26/2018 Comp Metabolic Ahk251 CL 105 mEq/L 01/26/2018 Comp Metabolic Xas381 CO2 23.0 mEq/L 01/26/2018 Comp Metabolic Tea506 ANION GAP 14 01/26/2018 Comp Metabolic Vhv284 GLUCOSE 89 mg/dL 01/26/2018 Comp Metabolic Aff040 Creat 1.1 mg/dL 01/26/2018 Comp Metabolic Jot181 eGFR 70 ml/min/1.73m2 01/26/2018 Comp Metabolic Nbu744 BUN 18 mg/dL 01/26/2018 Comp Metabolic Tss585 B/C Ratio 16.8 Ratio 01/26/2018 Comp Metabolic Pwy887 CALCIUM 9.2 mg/dL 01/26/2018 Comp Metabolic Sej574 ALK PHOS 67 U/L 01/26/2018 Comp Metabolic Tpy904 AST(SGOT) 31 U/L 01/26/2018 Comp Metabolic Zsq252 ALT(SGPT) 23 U/L 01/26/2018 Comp Metabolic Irl227 BILI T 1.7 mg/dL 01/26/2018 Comp Metabolic Fog046 ALBUMIN 3.9 g/dL 01/26/2018 Comp Metabolic Kkl776 TPRO 6.7 g/dL 01/26/2018 Comp Metabolic Qrq710 GLOB 2.8 g/dL 01/26/2018 Comp Metabolic Djm037 A/G Ratio 1.4 Ratio 01/26/2018 Comp Metabolic Lwx219 Osmo 277 mOsmo 01/26/2018 Cbc With Differential [...] 30.7 pg 01/26/2018 Cbc With Differential Ord2 [place]% 7.1 % 01/26/2018 Cbc With Differential Ord2 [...] 2.40 K/ul 01/26/2018 Cbc With Differential Ord2 [place] ABS# 0.5 K/ul 01/26/2018 Cbc With Differential Ord2 Eos ABS# 0.2 K/ul 01/26/2018 Cbc With Differential Ord2 Baso ABS# 0.0 K/ul 01/26/2018 Tsh Ord6 TSH (3rd IS) 1.81 uIU/mL 01/26/2018 Testosterone Tma809 Testo 370.3 ng/dL 01/26/2018 C A/B FLU 1416069 Influenza A Scr Negative 12/08/2017 C A/B FLU [id number] Influenza B Scr Negative 12/08/2017 C A/B FLU [id number] Influenza Intrp B AG: PRID:PT:NOSE:NOM:IF See Footnote [...] 89.6 fl 04/11/2017 Cbc With Differential Ord2 [place]% 8.1 % 04/11/2017 Cbc With Differential Ord2 [...] 1.91 K/ul 04/11/2017 Cbc With Differential Ord2 [place] ABS# 0.5 K/ul 04/11/2017 Cbc With Differential Ord2 Eos ABS# 0.2 K/ul 04/11/2017 Cbc With Differential Ord2 Baso ABS# 0.0 K/ul 04/11/2017 Comp Metabolic Msv535 NA 140 mEq/L 04/11/2017 Comp Metabolic Fgb749 K 4.1 mEq/L 04/11/2017 Comp Metabolic Tlm333 CL 105 mEq/L 04/11/2017 Comp Metabolic Wtq694 CO2 26.0 mEq/L 04/11/2017 Comp Metabolic Zox930 ANION GAP 13 04/11/2017 Comp Metabolic Qaf476 GLUCOSE 88 mg/dL 04/11/2017 Comp Metabolic Roo424 Creat 1.1 mg/dL 04/11/2017 Comp Metabolic Vij672 eGFR 66 ml/min/1.73m2 04/11/2017 Comp Metabolic Nqb249 BUN 18 mg/dL 04/11/2017 Comp Metabolic Vjb629 B/C Ratio 15.9 Ratio 04/11/2017 Comp Metabolic Nwf534 CALCIUM 9.0 mg/dL 04/11/2017 Comp Metabolic Yds249 ALK PHOS 72 U/L 04/11/2017 Comp Metabolic Fwc158 AST(SGOT) 22 U/L 04/11/2017 Comp Metabolic Njl250 ALT(SGPT) 26 U/L 04/11/2017 Comp Metabolic Img886 BILI T 1.0 mg/dL 04/11/2017 Comp Metabolic Dqd000 ALBUMIN 4.0 g/dL 04/11/2017 Comp Metabolic Tmv540 TPRO 6.4 g/dL 04/11/2017 Comp Metabolic Yys810 GLOB 2.4 g/dL 04/11/2017 Comp Metabolic Ygf733 A/G Ratio 1.6 Ratio 04/11/2017 Comp Metabolic Cuw513 Osmo 281 mOsmo 04/11/2017 Vitamin D 25 Oh Mch3564 VITAMIN D, 25 HYDROXY 65.52 ng/mL Cbc [...] 28.5 pg 05/18/2016 Cbc With Differential Ord2 [place]% 7.2 % 05/18/2016 Cbc With Differential Ord2 [...] 1.80 K/ul 05/18/2016 Cbc With Differential Ord2 [place] ABS# 0.4 K/ul 05/18/2016 Cbc With Differential Ord2 Eos ABS# 0.2 K/ul 05/18/2016 Cbc With Differential Ord2 Baso ABS# 0.0 K/ul 05/18/2016 Magnesium Ord90 Mag 2.0 mg/dL 05/18/2016 Renal Epw115 NA 139 mEq/L 05/18/2016 Renal Zow069 K 4.0 mEq/L 05/18/2016 Renal Qqq348 CL 104 mEq/L 05/18/2016 Renal Egc416 CO2 27.0 mEq/L 05/18/2016 Renal Uje768 ANION GAP 12 05/18/2016 Renal Zrk810 Osmo 279 mOsmo 05/18/2016 Renal Fgd781 GLUCOSE 91 mg/dL 05/18/2016 Renal Tqe828 BUN 18 mg/dL 05/18/2016 Renal Bvf344 Creat 1.3 mg/dL 05/18/2016 Renal Hkn472 eGFR 59 ml/min/1.73m2 05/18/2016 Renal Wun225 B/C Ratio 14.3 Ratio 05/18/2016 Renal Vyn895 CALCIUM 9.3 mg/dL 05/18/2016 Renal Uhw685 PHOS 3.2 mg/dL 05/18/2016 Renal Qph422 ALBUMIN 4.2 g/dL 05/18/2016 Random Urine Protein/Creatinine Ratio Pmd7944 U Prot 15.0 mg/dl 05/18/2016 Random Urine Protein/Creatinine Ratio Ppq5656 U CREAT 141.0 mg/dL 05/18/2016 Random Urine Protein/Creatinine Ratio Sum7168 R MTP/Creat Ratio 0.11 05/18/2016 Urinalysis Ord28 [...] 28.5 pg 02/19/2016 Cbc With Differential Ord2 [place]% 9.5 % 02/19/2016 Cbc With Differential Ord2 [...] 1.91 K/ul 02/19/2016 Cbc With Differential Ord2 [place] ABS# 0.5 K/ul 02/19/2016 Cbc With Differential Ord2 Eos ABS# 0.2 K/ul 02/19/2016 Cbc With Differential Ord2 Baso ABS# 0.0 K/ul 02/19/2016 Cbc With Differential Ord2 New Analyzer Notice Please note new ref ranges starting 10-29-2015 due to implemntation of new five part differential hematolgy analyzer. 02/19/2016 Tsh Ord6 hTSH II 2.10 uIU/mL 02/19/2016 Comp Metabolic Xdq239 NA 138 mEq/L 02/19/2016 Comp Metabolic Eja098 K 3.8 mEq/L 02/19/2016 Comp Metabolic Ywg784 CL 103 mEq/L 02/19/2016 Comp Metabolic Pdk508 CO2 28.0 mEq/L 02/19/2016 Comp Metabolic Sgt631 ANION GAP 11 02/19/2016 Comp Metabolic Wdq218 GLUCOSE 94 mg/dL 02/19/2016 Comp Metabolic Nhc228 Creat 1.0 mg/dL 02/19/2016 Comp Metabolic Kmc819 eGFR 75 ml/min/1.73m2 02/19/2016 Comp Metabolic Mlj391 BUN 18 mg/dL 02/19/2016 Comp Metabolic Zfp213 B/C Ratio 17.6 Ratio 02/19/2016 Comp Metabolic Rfh069 CALCIUM 9.6 mg/dL 02/19/2016 Comp Metabolic Rvc611 ALK PHOS 93 U/L 02/19/2016 Comp Metabolic Zcs128 AST(SGOT) 23 U/L 02/19/2016 Comp Metabolic Ryx975 ALT(SGPT) 19 U/L 02/19/2016 Comp Metabolic Lwh044 BILI T 0.8 mg/dL 02/19/2016 Comp Metabolic Tdv728 ALBUMIN 4.1 g/dL 02/19/2016 Comp Metabolic Jnx387 TPRO 6.8 g/dL 02/19/2016 Comp Metabolic Hat247 GLOB 2.7 g/dL 02/19/2016 Comp Metabolic Plx398 A/G Ratio 1.5 Ratio 02/19/2016 Comp Metabolic Blg904 Osmo 277 mOsmo 02/19/2016 Uric Acid Ord77 Uric A 6.0 mg/dL 02/19/2016 Total Psa Ord10 PSA 0.82 ng/mL 02/19/2016 Comp Metabolic Rla946 NA 140 mEq/L 12/16/2015 Comp Metabolic Krj898 K 4.0 mEq/L 12/16/2015 Comp Metabolic Xcr319 CL 105 mEq/L 12/16/2015 Comp Metabolic Bns575 CO2 24.0 mEq/L 12/16/2015 Comp Metabolic Ctq483 ANION GAP 15 12/16/2015 Comp Metabolic Lrv542 GLUCOSE 85 mg/dL 12/16/2015 Comp Metabolic Ngg034 Creat 1.2 mg/dL 12/16/2015 Comp Metabolic Oju059 eGFR 65 ml/min/1.73m2 12/16/2015 Comp Metabolic Fzy678 BUN 14 mg/dL 12/16/2015 Comp Metabolic Udo729 B/C Ratio 12.1 Ratio 12/16/2015 Comp Metabolic Yaj643 CALCIUM 9.1 mg/dL 12/16/2015 Comp Metabolic Tuz042 ALK PHOS 162 U/L 12/16/2015 Comp Metabolic Fxk791 AST(SGOT) 14 U/L 12/16/2015 Comp Metabolic Hht715 ALT(SGPT) 17 U/L 12/16/2015 Comp Metabolic Nwp275 BILI T 1.0 mg/dL 12/16/2015 Comp Metabolic Xfp414 ALBUMIN 3.4 g/dL 12/16/2015 Comp Metabolic Alm021 TPRO 6.2 g/dL 12/16/2015 Comp Metabolic Mxx290 GLOB 2.9 g/dL 12/16/2015 Comp Metabolic Dec386 A/G Ratio 1.2 Ratio 12/16/2015 Comp Metabolic Dsp378 Osmo 279 mOsmo 12/16/2015 Uric Acid Ord77 [...] 29.9 % 12/16/2015 Cbc With Differential Ord2 [place]% 7.5 % 12/16/2015 Cbc With Differential Ord2 [...] 1.52 K/ul 12/16/2015 Cbc With Differential Ord2 [place] ABS# 0.4 K/ul 12/16/2015 Cbc With Differential [...] C/HDL 4.0 Ratio 07/21/2015 Urine Protein 24Hr [id number] U Prot 5.1 mg/dl 05/16/2015 Urine Protein 24Hr Xmt163 U Prot24 71.5 mg/24hr 05/16/2015 Total Volume Urine [id number] TV/24hr 1400 ml 05/16/2015 Total Psa Ord10 PSA 0.70 ng/mL 05/15/2015 Renal Rkw048 NA 135 mEq/L 05/15/2015 Renal Jkl849 K 3.9 mEq/L 05/15/2015 Renal Vaq305 CL 101 mEq/L 05/15/2015 Renal Dlo841 CO2 27.0 mEq/L 05/15/2015 Renal Nhn229 ANION GAP 11 05/15/2015 Renal Wgh070 Osmo 274 mOsmo 05/15/2015 Renal Jln273 GLUCOSE 132 mg/dL 05/15/2015 Renal Gvj692 BUN 19 mg/dL 05/15/2015 Renal Bkg925 Creat 1.1 mg/dL 05/15/2015 Renal Vum652 eGFR 67 ml/min/1.73m2 05/15/2015 Renal Eeg720 B/C Ratio 17.0 Ratio 05/15/2015 Renal Muf525 CALCIUM 9.6 mg/dL 05/15/2015 Renal Ilu404 PHOS 3.0 mg/dL 05/15/2015 Renal Dsa670 ALBUMIN 4.3 g/dL 05/15/2015 Cbc With Differential [...] Formatting Model/CDA Sections, Assigned to/Sharee Ramirez CPT-4: 08886Glbcbys 07/05/2018 THER/PROPH/DIAG INJ SC/IM CPT-4: 01225 06/12/2018 TRIAMCINOLONE ACET INJ NOS CPT-4: J3301 06/12/2018 PPPS, SUBSEQ VISIT CPT -4: G0439 08/03/2017 ADMIN INFLUENZA VIRUS VAC CPT-4: G0008 06/28/2016 FLU VACC PRSV FREE INC ANTIG CPT-4: 16026 06/28/2016 TENIVAC TD VACCINE NO PRSRV 7/> IM CPT-4: 04752 06/28/2016 OCCULT BLOOD FECES CPT -4: 16957 02/19/2015 Vital Signs Date Vital 09/26/2018 Blood Pressure 1: 130/80 Code : 8480-6 BMI: 29.6 Code : 00436-7 Heart Rate 1 : 98 bpm Height: 6' SpO2: 93% Weight: 218 lbs 08/10/2018 BMI: 29.4 Code: 72490-1 Height: 6' Weight: 217 lbs 07/26/2018 Blood Pressure 1: 116/72 Code : 8480-6 BMI: 29.4 Code : 45646-3 Heart Rate 1 : 102 bpm Height: 6' SpO2: 96% Weight: 217 lbs 07/05/2018 Blood Pressure 1: 132/72 Code : 8480-6 Heart Rate 1: 60 bpm SpO2: 95% 06/12/2018 Blood Pressure 1: 120/78 Code : 8480-6 BMI: 29.6 Code : 28349-9 Heart Rate 1 : 103 bpm Height: 6' SpO2: 96% Weight: 218 lbs 05/10/2018 Blood Pressure 1: 114/68 Code : 8480-6 BMI: 29.4 Code : 67500-6 Heart Rate 1 : 92 bpm Height: 6' SpO2: 97% Weight: 217 lbs 03/27/2018 Blood Pressure 1: 126/74 Code : 8480-6 BMI: 30.1 Code : 26674-6 Heart Rate 1 : 103 bpm Height: 6' SpO2: 96% Weight: 222 lbs 01/25/2018 Blood Pressure 1: 122/70 Code : 8480-6 Blood Pressure 2: 12673 Code: 8480-6 Heart Rate 1: 63 bpm SpO2: 94% 01/24/2018 Blood Pressure 1: 11072 Code : 8480-6 BMI: 29.7 Code : 82138-5 Heart Rate 1 : 88 bpm Height: 6' SpO2: 95% Weight: 219 lbs 12/08/2017 Blood Pressure 1: 12068 Code : 8480-6 BMI: 30.0 Code : 74435-8 Heart Rate 1 : 91 bpm Height: 6' SpO2: 96% Temperature: 36.7 (C) / 98.1 (F) Weight: 221 lbs 10/27/2017 Blood Pressure 1: 124/76 Code : 8480-6 BMI: 30.1 Code : 25867-3 Heart Rate 1 : 69 bpm Height: 6' SpO2: 95% Weight: 222 lbs 09/29/2017 Blood Pressure 1: 118/66 Code : 8480-6 BMI: 29.9 Code : 99413-2 Heart Rate 1 : 81 bpm Height: 6' SpO2: 95% Weight: 220 lbs 8 oz 09/01/2017 Blood Pressure 1: 122/82 Code : 8480-6 BMI: 29.6 Code : 92903-8 Heart Rate 1 : 75 bpm Height: 6' SpO2: 97% Weight: 218 lbs 08/03/2017 Blood Pressure 1: 120/68 Code : 8480-6 Heart Rate 1: 68 bpm Height: 6' SpO2: 94% Waist Measure (cm): 97 cm 04/26/2017 Blood Pressure 1: 122/72 Code : 8480-6 BMI: 29.4 Code : 58452-6 Heart Rate 1 : 85 bpm Height: 6' SpO2: 92% Weight: 217 lbs 01/25/2017 Blood Pressure 1: 118/78 Code : 8480-6 BMI: 29.4 Code : 01192-6 Heart Rate 1 : 72 bpm Height: 6' SpO2: 94% Temperature: 36.9 (C) / 98.5 (F) Weight: 217 lbs 10/26/2016 Blood Pressure 1: 152/86 Code : 8480-6 BMI: 29.7 Code : 22687-2 Heart Rate 1 : 58 bpm Height: 6' Weight: 219 lbs 09/27/2016 Blood Pressure 1: 138/80 Code : 8480-6 BMI: 29.4 Code : 73447-8 Heart Rate 1 : 52 bpm Height: 6' SpO2: 98% Weight: 217 lbs 06/28/2016 Blood Pressure 1: 128/86 Code : 8480-6 BMI: 29.6 Code : 99888-2 Heart Rate 1 : 69 bpm Height: 6' SpO2: 93% Weight: 218 lbs 04/27/2016 Blood Pressure 1: 118/82 Code : 8480-6 BMI: 29.3 Code : 14409-2 Heart Rate 1 : 85 bpm Height: 6' SpO2: 98% Weight: 216 lbs 02/17/2016 Blood Pressure 1: 132/80 Code : 8480-6 BMI: 28.8 Code : 34275-1 Heart Rate 1 : 94 bpm Height: 6' SpO2: 98% Weight: 212 lbs 01/20/2016 Blood Pressure 1: 120/70 Code : 8480-6 BMI: 29.7 Code : 82758-1 Heart Rate 1 : 87 bpm Height: 6' SpO2: 92% Weight: 219 lbs 01/06/2016 Blood Pressure 1: 122/88 Code : 8480-6 BMI: 28.8 Code : 30836-0 Heart Rate 1 : 83 bpm Height: [...] Code : 8480-6 BMI: 30.5 Code : 81857-0 Heart Rate 1 : 82 bpm Height: 6' SpO2: 92% Weight: 225 lbs 06/09/2015 Blood Pressure 1: 130/76 Code : 8480-6 BMI: 31.1 Code : 19981-6 Heart Rate 1 : 65 bpm Height: 6' SpO2: 96% Weight: 229 lbs 04/29/2015 Blood Pressure 1: 118/78 Code : 8480-6 BMI: 30.7 Code : 95904-0 Heart Rate 1 : 70 bpm Height: 6' Weight: 226 lbs 02/19/2015 Blood Pressure 1: 118/70 Code : 8480-6 BMI: 29.7 Code : 87918-4 Heart Rate 1 : 68 bpm Height: [...] data Encounters Encounter Performer Location Codes Date ([id number]) 81235 EST. PATIENT, LEVEL IV Diagnosis: Essential (primary) hypertension[ICD10: I10] Diagnosis: Vertigo of central origin, right ear[ICD10: H81.41] Diagnosis: Low back pain[ICD10: M54.5] Lesley Butcher MD, [facility] CPT- 4: 90330 09/26/2018 ([id number]) 91295 EST. PATIENT, LEVEL III Diagnosis: Dizziness and giddiness[ICD10: R42] Diagnosis: Vertigo of central origin, right ear[ICD10: H81.41] Diagnosis: Essential (primary) hypertension[ICD10: I10] Lesley Butcher MD, [facility] CPT-4: 19374 07/26/2018 ([id number]) 09890 EST. PATIENT, LEVEL III Diagnosis: Essential (primary) hypertension[ICD10: I10] Lesley Butcher MD, [facility] CPT-4: 48870 06/12/2018 ([id number]) 19620 EST. PATIENT, LEVEL IV Diagnosis: Other iron deficiency anemias[ICD10: D50.8] Diagnosis: Weakness[ICD10: R53.1] Diagnosis: Diverticulosis of large intestine without perforation or abscess with bleeding[ICD10: K57.31] Lesley Butcher MD, [facility] CPT-4: 61643 05/10/2018 ([id number]) 90470 EST. PATIENT, LEVEL IV Diagnosis: Essential (primary) hypertension[ICD10: I10] Diagnosis: Major depressive disorder, recurrent, mild[ICD10: F33.0] Diagnosis: Sensorineural hearing loss, bilateral[ICD10: H90.3] Lesley Butcher MD, [facility] CPT-4: 44795 03/27/2018 ([id number]) Miscellaneous no charge Diagnosis: Essential (primary) hypertension[ICD10: I10] Mady Butcher MD, [facility] CPT-4: 56363 01/25/2018 ([id number]) 71620 EST. PATIENT, LEVEL IV Diagnosis: Essential (primary) hypertension[ICD10: I10] Diagnosis: Sensorineural hearing loss, bilateral[ICD10: H90.3] Diagnosis: Mixed hyperlipidemia[ICD10: E78.2] Diagnosis: Major depressive disorder, recurrent, mild[ICD10: F33.0] Lesley Butcher MD, [facility] CPT-4: 75094 01/24/2018 40180 EST. PATIENT, LEVEL IV Diagnosis: Other malaise[ICD10: R53.81] Diagnosis: Fever, unspecified[ICD10: R50.9] Mady Butcher MD, [facility] CPT- 4: 49346 12/08/2017 ([id number]) 97437 EST. PATIENT, LEVEL III Diagnosis: Essential (primary) hypertension[ICD10: I10] Lesley Butcher MD, [facility] CPT-4: 61937 10/27/2017 ([id number]) 20239 EST. PATIENT, LEVEL III Diagnosis: Benign prostatic hyperplasia with lower urinary tract symptoms[ICD10 : N40.1] Diagnosis: Dysphagia, pharyngeal phase[ICD10: R13.13] Lesley Butcher MD, [facility] CPT-4: 48614 09/29/2017 ([id number]) 37076 EST. PATIENT, LEVEL IV Diagnosis: Essential (primary) hypertension[ICD10: I10] Diagnosis: Major depressive disorder, recurrent, mild[ICD10: F33.0] Diagnosis: Sensorineural hearing loss, bilateral[ICD10: H90.3] Lesley Butcher MD, [facility] CPT-4: 91067 09/01/2017 ([id number]) 49766 EST. PATIENT, LEVEL IV Diagnosis: Essential (primary) hypertension[ICD10: I10] Diagnosis: Major depressive disorder, recurrent, mild[ICD10: F33.0] Diagnosis: Mixed hyperlipidemia[ICD10: E78.2] Lesley Butcher MD, [facility] CPT-4: 80371 04/26/2017 ([id number]) 10898 EST. PATIENT, LEVEL IV Diagnosis: Essential (primary) hypertension[ICD10: I10] Diagnosis: Major depressive disorder, recurrent, mild[ICD10: F33.0] Diagnosis: Urge incontinence[ICD10: N39.41] Lesley Butcher MD, [facility] CPT-4: 43172 01/25/2017 ([id number]) 38964 EST. PATIENT, LEVEL IV Diagnosis: Essential (primary) hypertension[ICD10: I10] Diagnosis: Major depressive disorder, recurrent, mild[ICD10: F33.0] Diagnosis: Urge incontinence[ICD10: N39.41] Lesley Butcher MD, [facility] CPT-4: 06397 10/26/2016 ([id number]) 91168 EST. PATIENT, LEVEL III Diagnosis: Essential (primary) hypertension[ICD10: I10] Diagnosis: Major depressive disorder, recurrent, mild[ICD10: F33.0] Diagnosis: Urge incontinence[ICD10: N39.41] Lesley Butcher MD, [facility] CPT-4: 84161 09/27/2016 ([id number]) 78181 EST. PATIENT, LEVEL IV Diagnosis: Essential (primary) hypertension[ICD10: I10] Diagnosis: Encounter for immunization[ICD10: Z23] Diagnosis: Laceration without foreign body of left forearm, initial encounter[ ICD10: S51.812A] Diagnosis: Laceration without foreign body of right forearm, initial encounter[ ICD10: S51.811A] Diagnosis: Major depressive disorder, recurrent, mild[ICD10: F33.0] Lesley Butcher MD, [facility] CPT-4: 48652 06/28/2016 [id number]) 60848 EST. PATIENT, LEVEL IV Diagnosis: Essential (primary) hypertension[ICD10: I10] Diagnosis: Idiopathic gout, left ankle and foot[ICD10: M10.072] Diagnosis: Other iron deficiency anemias[ICD10: D50.8] Lesley Butcher MD, [facility] CPT-4: 02111 04/27/2016 ([id number]) 25876 EST. 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 PATIENT, LEVEL IV Diagnosis: Weakness[ICD10: R53.1] Diagnosis: Gout, unspecified[ICD10: M10.9] Diagnosis: Hypotension, unspecified[ICD10: I95.9] Lesley Butcher MD, [facility] CPT-4: 19200 12/16/2015 ([id number]) Patient admitted to the hospital from clinic (NO CHARGE) Diagnosis: Hypoxemia[ICD10: R09.02] Diagnosis: Weakness[ICD10: R53.1] Diagnosis: Dyspnea, unspecified[ICD10: R06.00] Mady Butcher MD, [facility] CPT-4: 06377R 11/27/2015 ([id number]) 84138 EST. PATIENT, LEVEL III Diagnosis: Essential (primary) hypertension[ICD10: I10] Diagnosis: Gastro-esophageal reflux disease without esophagitis[ICD10: K21.9] Lesley Butcher MD, [facility] CPT-4: 86495 07/30/2015 ([id number]) 12570 EST. PATIENT, LEVEL III Diagnosis: ESSENTIAL HYPERTENSION[ICD9: 401.9] Merline Rose Lesley Butcher MD, [facility] CPT-4: 74751 06/09/2015 ([id number]) 98976 EST. PATIENT, LEVEL III Diagnosis: ESSENTIAL HYPERTENSION[ICD9: 401.9] Lesley Butcher MD, [facility] CPT-4: 67095 04/29/2015 ([id number]) OFFICE/OUTPATIENT VISIT NEW Diagnosis: ESSENTIAL HYPERTENSION[ICD9: 401.9] Diagnosis: DEPRESSIVE DISORDER NEC[ICD9: 311] Diagnosis: Enlarged prostate[ICD9: 600.00] Diagnosis: Nasal inflammation due to allergen[ICD9: 477.9] Lesley Butcher MD, [facility] CPT-4: 11788 02/19/2015 Plan of Care Planned Activity Notes [...] cryotherapy sessions. 09/26/2018 Appointment: Lesley Butcher WPtel: [address] [place], [place] [address] (15 min) Moderate 09/26/2018 Patient Education: Patient [...] care surrogate. 08/10/2018 Appointment: Mady Dunne WPtel: [facility]1 [facility] [facility] - Annual Wellness Visit 08/10/2018 Patient [...] at home. 07/26/2018 Appointment: Lesley Butcher WPtel: [facility]4 [facility] (15 min) Moderate 07/26/2018 Patient Education: Patient [...] his dexamethasone. 06/12/2018 Appointment: Lesley Butcher WPtel: [facility] (15 min) Moderate 06/12/2018 Patient Education: Patient Medication Summary Completed 06/12/2018 Visit Plan: Diverticulosis with recent GI bleeding - improved - continue with supportive care, avoid foods which cause any abdominal pain - monitor symptoms - call if any pain or bleeding recurs. Anemia - check labs today. Weakness - continue with increasing of activity. 05/10/2018 Appointment: Lesley Butcher WPtel: [facility]6 [facility] (30 min) Complex 05/10/2018 Patient Education: Patient [...] cochlear implant. 03/27/2018 Appointment: Lesley Butcher WPtel: [facility]4 [facility] (15 min) Moderate 03/27/2018 Patient Education: Patient [...] to medications. 01/24/2018 Appointment: [phone] [facility] (15 min) Moderate 01/24/2018 Patient Education: Patient Medication Summary Completed 01/24/2018 Visit Plan: Influenza - pt started on tamiflu - pt to start on anti-inflammatories, tylenol and monitor symptoms. Pt to call if not improving. Pt to alert any close contacts as to illness. 12/08/2017 Appointment: Mady Dunne WPtel: [facility]5 [facility] (30 min) Complex 12/08/2017 Patient Education: Patient Medication Summary Completed 12/08/2017 Visit Plan: Hypertension - well controlled - continue with current medications, continue with no added salt diet. Pt has been encouraged to exercise daily. The pt has been advised to call the office if there are any acute concerns about change in blood pressure readings at home. 10/27/2017 Appointment: Lesley Butcher WPtel: [address] [place], [place] [address] (15 min) Moderate 10/27/2017 Patient Education: Patient Medication Summary Completed 10/27/2017 Referral: External, Ordering Provider Referral Initiated 10/12/2017 Visit Plan: BPH - continue with dutasteride and flomax Dysphagia - referral to Dr. Kumar for EGD - question stricture - dysphagia intermittently - hx of stricture. 09/29/2017 Appointment: Lesley Butcher WPtel: [address] [place], [place] [address] (15 min) Moderate 09/29/2017 Patient Education: Patient Medication Summary Completed 09/29/2017 Care Plan: Referral Order SNOMED-CT : [id number] Pending 09/29/2017 Visit Plan: Hypertension - well [...] recommended patient to have an evaluation at [facility] to see if he has potential for cochlear implant. 09/01/2017 Appointment: eLsley Butcher WPtel: [facility]8 [place] [phone] (15 min) Moderate 09/01/2017 Patient Education: Patient Medication Summary Completed 09/01/2017 Care Plan: Referral Order SNOMED-CT : [id number] Pending 09/01/2017 Visit Plan: Medicare Exam - [...] [phone] [place] [place] - Welcome to Medicare visit 08/03/2017 Patient [...] medications. 04/26/2017 Appointment: Lesley Butcher WPtel: [phone] [facility] (15 min) Moderate 04/26/2017 Patient Education: Patient [...] 10mg daily. 01/25/2017 Appointment: Lesley Butcher WPtel: [facility]8 [facility] (30 min) Complex 01/25/2017 Patient Education: Patient [...] [place] 10/26/2016 Appointment: Lesley Butcher WPtel: [facility]8 [facility] (15 min) Moderate 10/26/2016 Patient Education: Patient [...] retention occur. 09/27/2016 Appointment: Lesley Butcher WPtel: [facility] (15 min) Moderate 09/27/2016 Patient Education: [...] shelli andrea 06/28/2016 Appointment: Lesley Butcher WPtel: [phone] [facility] (15 min) Moderate 06/28/2016 Patient Education: Patient [...] gout-symptoms stable-continue allopurinol Allergies-recommend allergy eye drops-zaditor Menieres-increase dexamethasone x 1 month 02/17/2016 Visit Plan: [...] gout-symptoms stable-continue allopurinol Allergies-recommend allergy eye drops-zaditor Menieres-increase dexamethasone x 1 month ADDENDUM: Doctor's eval [...] and plan. 02/17/2016 Appointment: Merline Rose WPtel: [address] [place], [place] [phone] (30 min) Complex 02/17/2016 Patient Education: Patient [...] Summary Completed 12/16/2015 Appointment: Lesley Butcher WPtel: [facility]5 [facility] (15 min) Moderate 12/04/2015 Appointment: Lesley Butcher WPtel: [facility]5 [facility] (15 min) Moderate 12/02/2015 Visit Plan: Admission [...] PHARMACY 07/30/2015 Appointment: Lesley Butcher WPtel: [phone] [facility] (15 min) Moderate 07/30/2015 Patient Education: Patient [...] home. 04/29/2015 Appointment: Lesley Butcher WPtel: [phone] [facility] (15 min) Moderate 04/29/2015 Patient Education: Patient [...] External, Ordering Provider Referral Appointment Requested Referral: [facility] 09/12 Referral info faxed Appointment Requested Referral: [facility] Referral Appointment Requested Instructions Comment . [...] in the nasal steroid allergy spray. . Diverticulosis with recent GI bleeding - improved - continue with supportive care, avoid foods which cause any abdominal pain - monitor symptoms - call if any pain or bleeding recurs. Anemia - check labs today. Weakness - continue with increasing of activity. change spironolactone to early afternoon hold the plavix 72 hours prior to planned injection in back and call the intelligent systems engineer about a biopsy of the lesion on [...] healed after the last two cryotherapy sessions. the light-headedness that you are experiencing is [...] hospital stay for the patient's health benefit. Vesicare 5mg - take one pill at [...] call if symptoms of urinary retention occur. Take 1/2 tab of Citalopram daily for [...] recommended patient to have an evaluation at [facility] to see if he has potential for [...] exposure. No change in current medications. . BPH - continue with dutasteride and flomax Dysphagia - referral to Dr. Kumar for EGD - question stricture - dysphagia intermittently - hx of stricture. . Vertigo - vestibular/cochlearVestibular therapy with Allan [...] GET THE FLU SHOT AT THE PHARMACY increase citalopram to 40mg daily . Hypertension [...]
--- OUTSIDE RECORDS SUMMARY | 2018-12-19 12:44 | XMS REPORT | CCD ---
Author Author [facility] Organization [facility] Address [address] [place] [address] Phone Care Team Providers Care Sprinkler Helper Name Role Phone PP Unavailable CCM Unavailable Summary Purpose Interface Exchange Insurance Providers Payer name Policy type / Coverage type Covered green party ID Effective Begin Date Effective End Date WPS Medicare Part B Medicare Part B [id number] 2018 Unknown [facility] Medicare Part B [id number] 2018 Unknown Family history Father Diagnosis Age At Onset Hypertension Unknown Coronary Artery Disease Unknown Sister Diagnosis Age At Onset Heart disease Unknown Mother Diagnosis Age At Onset Coronary Artery Disease Unknown Hypertension Unknown Social History Social History Element Codes Description Effective Dates Marital status Unknown 02/19/2015 Number of children Unknown 2 02/19/2015 Employment Unknown Retired 02/19/[address]: 164432134 Has never smoked or chewed tobacco 02/19/2015 Alcohol history Unknown occasionally drinks alcohol 02/19/2015 Allergies, Adverse Reactions, Alerts Substance Reaction Codes Entered Date Inactivated Date Status bactrim RxNorm: 738703 12/19/2015 No Inactive Date Active ciprofloxacin RxNorm: 92029 02/18/2015 No Inactive Date Active Past Medical [...] Fill Instructions atorvastatin 40 mg tablet RxNorm: 256663 1 Tablet(s) PO daily 09/26/2018 10/25/2018 Active dexamethasone 0.5 mg tablet RxNorm: 224453 TAKE 1 TABLET BY MOUTH ONCE DAILY 08/29/2018 No Stop Date Active clonazepam 1 mg tablet RxNorm: 823577 1/2 Tablet(s) PO QHS 05/201812/21/2018 Active allopurinol 100 mg tablet RxNorm: 733906 TAKE ONE TABLET BY MOUTH ONCE DAILY 08/03/2018 No Stop Date Active citalopram 40 mg tablet RxNorm: 737206 TAKE ONE TABLET BY MOUTH ONCE DAILY 06/13/2018 No Stop Date Active Kenalog 40 mg/mL suspension for injection RxNorm: 2220451 Milliliter(s) Inj 06/12/2018 06/12/2018 Inactive clonazepam 1 mg tablet RxNorm: 874647 1 Tablet(s) PO QHS 201708/23/2018 Inactive losartan 50 mg tablet RxNorm: 321160 1/2 Tablet(s) PO daily 05/2018 No Stop Date Active clonazepam 1 mg tablet RxNorm: 074066 1/2 Tablet(s) TAKE ONE TABLET BY MOUTH ONCE DAILY AT BEDTIME AND ONE TABLET THREE TIMES DAILY NEEDED 05/24/2018 06/11/2018 Inactive citalopram 40 mg tablet RxNorm: 725385 1/2 Tablet(s) TAKE ONE TABLET BY MOUTH ONCE DAILY 05/24/2018 09/25/2018 Inactive spironolactone 25 mg tablet RxNorm: 731358 TAKE ONE TABLET BY MOUTH ONCE DAILY 05/22/2018 No Stop Date Active dexamethasone 0.5 mg tablet RxNorm: 679040 TAKE ONE TABLET BY MOUTH ONCE DAILY 02/21/2018 08/28/2018 Inactive Flomax 0.4 mg capsule RxNorm: 173333 TAKE ONE CAPSULE BY MOUTH ONCE DAILY IN THE EVENING 12/19/2017 No Stop Date Active Tamiflu 75 mg capsule RxNorm: 500121 1 Capsule(s) PO BID 201712/12/2017 Inactive clonazepam 1 mg tablet RxNorm: 205016 Tablet(s) TAKE ONE TABLET BY MOUTH ONCE DAILY AT BEDTIME AND ONE TABLET THREE TIMES DAILY NEEDED 11/28/2017 01/26/2018 Inactive pantoprazole 40 mg tablet,delayed release RxNorm: 495900 TAKE ONE TABLET BY MOUTH ONCE DAILY AT BEDTIME 11/07/2017 No Stop Date Active allopurinol 100 mg tablet RxNorm: 977952 TAKE ONE TABLET BY MOUTH ONCE DAILY 10/03/2017 08/02/2018 Inactive pantoprazole 40 mg tablet,delayed release RxNorm: 823435 1 Tablet(s) PO BID 09/01/2017 05/28/2018 Inactive Vitamin B-6 100 mg tablet RxNorm: 240349 1 Tablet(s) PO daily 09/01/2017 06/11/2018 Inactive dutasteride 0.5 mg capsule RxNorm: 010819 1 Capsule(s) PO QPM 09/01/2017 06/11/2018 Inactive spironolactone 25 mg tablet RxNorm: 056636 TAKE ONE TABLET BY MOUTH ONCE DAILY 08/15/2017 05/21/2018 Inactive citalopram 40 mg tablet RxNorm: 583094 TAKE ONE TABLET BY MOUTH ONCE DAILY 08/08/2017 05/04/2018 Inactive dexamethasone 0.5 mg tablet RxNorm: 799639 TAKE ONE TABLET BY MOUTH ONCE DAILY 08/08/2017 11/05/2017 Inactive clonazepam 1 mg tablet RxNorm: 520791 TAKE ONE TABLET BY MOUTH ONCE DAILY AT BEDTIME AND ONE THREE TIMES DAILY NEEDED 05/12/2017 08/08/2017 Inactive clonazepam 1 mg tablet RxNorm: 925388 1 Tablet(s) PO QHS AND 1 TAB PO TID PRN 05/12/2017 05/13/2017 Inactive oxybutynin chloride ER 10 mg tablet,extended release 24 hr RxNorm: 318756 1 Tablet (s) PO daily 04/29/2017 08/02/2017 Inactive dexamethasone 0.5 mg tablet RxNorm: 374237 TAKE ONE TABLET BY MOUTH ONCE DAILY 02/14/2017 04/14/2017 Inactive Flomax 0.4 mg capsule RxNorm: 637721 TAKE ONE CAPSULE BY MOUTH ONCE DAILY IN THE EVENING 02/14/2017 11/10/2017 Inactive pantoprazole 40 mg tablet,delayed release RxNorm: 312000 TAKE ONE TABLET BY MOUTH ONCE DAILY AT BEDTIME 02/14/20172016 Inactive oxybutynin chloride ER 10 mg tablet,extended release 24 hr RxNorm: 584407 1 Tablet (s) PO daily 01/25/2017 04/24/2017 Inactive dexamethasone 0.5 mg tablet RxNorm: 891562 TAKE ONE TABLET BY MOUTH ONCE DAILY 11/10/2016 12/09/2016 Inactive oxybutynin chloride ER 5 mg tablet,extended release 24 hr RxNorm: 630152 1 Tablet( s) PO daily 10/28/2016 10/27/2016 Inactive oxybutynin chloride ER 5 mg tablet,extended release 24 hr RxNorm: 638038 1 Tablet( s) PO daily 10/28/2016 01/24/2017 Inactive Detrol LA 2 mg capsule,extended release RxNorm: 490018 1 Capsule(s) PO QPM 10/26/2016 10/27/2016 Inactive clonazepam 1 mg tablet RxNorm: 132369 1 Tablet(s) PO QHS AND 1 TAB PO TID PRN 10/20/2016 04/17/2017 Inactive dexamethasone 0.5 mg tablet RxNorm: 096374 TAKE ONE TABLET BY MOUTH ONCE DAILY 10/06/2016 11/04/2016 Inactive allopurinol 100 mg tablet RxNorm: 029829 1 Tablet(s) PO daily 09/30/2016 09/24/2017 Inactive Vesicare 5 mg tablet RxNorm: 380992 1 Tablet(s) PO QPM 201512/12/2016 Inactive spironolactone 25 mg tablet RxNorm: 979149 1 Tablet(s) PO daily 08/06/2016 07/31/2017 Inactive citalopram 40 mg tablet RxNorm: 143115 1 Tablet(s) PO daily 09/201606/22/2017 Inactive Plavix 75 mg tablet RxNorm: 335827 1 Tablet(s) PO daily 2015 No Stop Date Active iron ER 159 mg (45 mg iron) tablet,extended release RxNorm: 516850 1 Tablet(s) PO daily 04/27/2016 08/31/2017 Inactive dexamethasone 0.5 mg tablet RxNorm: 713197 1/2 Tablet(s) PO daily 04/27/2016 02/20/2018 Inactive allopurinol 100 mg tablet RxNorm: 269289 1 Tablet(s) PO daily 04/27/2016 09/29/2016 Inactive clonazepam 1 mg tablet RxNorm: 706447 1 Tablet(s) PO QHS and 1 tab po TID prn 04/14/2016 10/07/2016 Inactive allopurinol 100 mg tablet RxNorm: 570251 1 Tablet(s) PO daily 02/17/2016 04/26/2016 Inactive citalopram 20 mg tablet RxNorm: 565440 1 Tablet(s) PO daily 02/201606/27/2016 Inactive Flomax 0.4 mg capsule RxNorm: 106555 1 Capsule(s) PO QPM 201501/13/2017 Inactive [SAVINGS FOR NON-COVERED DRUGS -- BIN:[id number], PCN: ASPROD1, Group: XXXXX, ID # XXXXXXX, Questions: . THIS IS NOT INSURANCE.] pantoprazole 40 mg tablet,delayed release RxNorm: 643058 1 Tablet(s) PO QHS 01/20/2016 01/13/2017 Inactive Colcrys 0.6 mg tablet RxNorm: 812104 1 Tablet(s) PO daily 201503/05/2016 Inactive take daily x 7 days then daily as needed for gout flair colchicine 0.6 mg tablet RxNorm: 524633 1 Tablet(s) PO BID 01/01/2016 Inactive doxycycline hyclate 100 mg tablet RxNorm: 580961 1 Tablet(s) PO BID 12/19/2015 12/28/2015 Inactive doxycycline hyclate 100 mg tablet RxNorm: 786848 1 Tablet(s) PO BID 12/19/2015 12/18/2015 Inactive allopurinol 100 mg tablet RxNorm: 306604 1 Tablet(s) PO daily 12/16/2015 02/16/2016 Inactive colchicine 0.6 mg tablet RxNorm: 138512 Tablet(s) PO 1.2 mg PO in the morning and 0.6 mg at night for 2 days. 12/16/2015 Inactive allopurinol 100 mg tablet RxNorm: 389586 1 Tablet(s) PO daily 12/16/2015 12/15/2015 Inactive Protonix 40 mg tablet,delayed release RxNorm: 943225 1 Tablet(s) PO daily 12/16/2015 01/14/2016 Inactive Bactrim DS 800 mg-160 mg tablet RxNorm: 877732 1 Tablet(s) PO BID 12/16/2015 12/18/2015 Inactive colchicine 0.6 mg tablet RxNorm: 234290 Tablet(s) PO 1.2 mg for the first dose and 0.6 mg an hour after 12/15/20152015 Inactive dexamethasone 0.5 mg tablet RxNorm: 957963 1 Tablet(s) PO 12/1202/09/2016 Inactive Plavix 75 mg tablet RxNorm: 159865 1 Tablet(s) PO every other day 12/12/2015 04/09/2016 Inactive nitroglycerin 0.4 mg sublingual tablet RxNorm: 712696 1 Tablet(s) SL x3 in 15 min as needed 12/12/2015 04/26/2016 Inactive clonazepam 1 mg tablet RxNorm: 055833 1 Tablet(s) PO QHS and 1 tab po TID prn 12/11/2015 12/03/2016 Inactive [place] 5 mg-325 mg tablet RxNorm: 868836 1-2 Tablet(s) PO Q6 as needed 12/11/2015 09/26/2016 Inactive clonazepam 1 mg tablet RxNorm: 318070 1 Tablet(s) PO QHS and 1 tab po TID prn 12/04/2015 12/10/2015 Inactive Flomax 0.4 mg capsule RxNorm: 779023 1 Capsule(s) PO QPM 201401/19/2016 Inactive [SAVINGS FOR NON-COVERED DRUGS -- BIN:[id number], PCN: ASPROD1, Group: XXXXX, ID # XXXXXXX, Questions: . THIS IS NOT INSURANCE.] Flomax 0.4 mg capsule RxNorm: 586452 1 Capsule(s) PO QPM 201409/21/2015 Inactive [SAVINGS FOR NON-COVERED DRUGS -- BIN:336324, PCN: ASPROD1, Group: XXXXX, ID # XXXXXXX, Questions: . THIS IS NOT INSURANCE.] clonazepam 1 mg tablet RxNorm: 422668 1 Tablet(s) PO QHS 201412/03/2015 Inactive coenzyme Q10 10 mg tablet RxNorm: 867691 1 Tablet(s) PO daily 07/30/2015 01/05/2016 Inactive spironolactone 25 mg tablet RxNorm: 349558 1 Tablet(s) PO daily 07/28/2015 07/21/2016 Inactive spironolactone 25 mg tablet RxNorm: 967637 1 Tablet(s) PO daily 07/22/2015 07/27/2015 Inactive clonazepam 1 mg tablet RxNorm: 330456 1 Tablet(s) PO QHS 201408/28/2015 Inactive losartan 25 mg tablet RxNorm: 746111 1 Tablet(s) PO daily 201403/20/2015 Inactive Flonase Allergy Relief 50 mcg/actuation nasal spray, suspension RxNorm: 1 [place] NASAL BID 02/19/2015 04/26/2016 Inactive [SAVINGS FOR NON-COVERED DRUGS -- BIN:[id number], PCN: ASPROD1, Group: XXXXX, ID# XXXXXXX, Questions: [phone]. THIS IS NOT INSURANCE.] Flomax 0.4 mg capsule RxNorm: 947903 1 Capsule(s) PO QPM 201409/15/2015 Inactive [SAVINGS FOR NON-COVERED DRUGS -- BIN:449307, PCN: ASPROD1, Group: XXXXX, ID # XXXXXXX, Questions: . THIS IS NOT INSURANCE.] citalopram 20 mg tablet RxNorm: 545071 1 Tablet(s) PO daily 03/201503/20/2015 Inactive atenolol 25 mg tablet RxNorm: 042538 1 Tablet(s) PO daily 201403/20/2015 Inactive Lipitor 20 mg tablet RxNorm: 062037 1 Tablet(s) PO daily 201403/20/2015 Inactive vitamin B complex oral RxNorm: 96807 oral No Start Date Active Claritin-D 24 Hour oral RxNorm: 409278 oral No Start Date Active cetirizine 10 mg tablet RxNorm: 7441744 1 Tablet(s) PO daily No Start Date Active Aleve 220 mg tablet RxNorm: 756527 Tablet(s) PO as needed No Start Date Active Vitamin D3 1,000 unit capsule RxNorm: 656394 2 Capsule(s) PO daily No Start Date Active Centrum Complete oral RxNorm: 94382 oral No Start Date Active glucosamine HCl 1,500 mg tablet RxNorm: 100068 1 Tablet(s) with 1200 mg chrondroitin PO daily No Start Date 2017 Inactive ranitidine 150 mg tablet RxNorm: 206045 1 Tablet(s) PO TID No Start Date 12/11/2015 Inactive [place] 5 mg-325 mg tablet RxNorm: 679367 1-2 Tablet(s) PO Q6 as needed No Start Date 12/10/2015 Inactive krill oil oral RxNorm : 74363 oral No Start Date 08/07/2018 Inactive Vitamin B-6 100 mg tablet RxNorm: 988119 1 Tablet(s) PO TID No Start Date 08/31/2017 Inactive spironolactone 25 mg tablet RxNorm: 375436 1 Tablet(s) PO daily No Start Date 07/21/2015 Inactive Vitamin D3 oral RxNorm : 2418 oral No Start Date 02/17/2016 Inactive clonazepam 1 mg tablet RxNorm: 815590 1 Tablet(s) PO daily No Start Date 05/22/2015 Inactive Glucosamine oral RxNorm: 4845 oral No Start Date 04/26/2016 Inactive losartan 50 mg tablet RxNorm: 233997 1 Tablet(s) PO daily No Start Date 05/23/2018 Inactive Plavix 75 mg tablet RxNorm: 910589 1 Tablet(s) PO every other day No Start Date 12/11/2015 Inactive Osteo Bi-Flex oral RxNorm: 1918564 oral No Start Date 09/01/2017 Inactive iron ER 159 mg (45 mg iron) tablet,extended release RxNorm: 414766 1 Tablet(s) PO BID No Start Date 04/26/2016 Inactive amlodipine 5 mg tablet RxNorm: 172491 1 Tablet(s) PO daily No Start Date 01/05/2016 Inactive aspirin 81 mg tablet,delayed release RxNorm: 761472 1 Tablet(s) PO daily No Start Date 05/09/2018 Inactive dexamethasone 0.5 mg tablet RxNorm: 738316 1 Tablet(s) PO No Start Date 12/11/2015 Inactive Vitamin B-12 1,000 mcg tablet RxNorm: 002335 6 Tablet(s) PO every other day No Start Date 06/11/2018 Inactive colchicine 0.6 mg tablet RxNorm: 751907 Tablet(s) PO 1.2 mg for the first dose and 0.6 mg an hour after No Start Date Inactive nitroglycerin 0.4 mg sublingual tablet RxNorm: 951966 1 Tablet(s) SL x3 in 15 min as needed No Start Date 12/11/2015 Inactive Fish Oil 1,000 mg capsule RxNorm: 1 Capsule(s) PO daily No Start Date 04/26/2016 Inactive Ecotrin Low Strength 81 mg tablet,enteric coated RxNorm: 4930272 1 Tablet(s) PO daily No Start Date 09/27/2016 Inactive Medication Administered Medication Codes Instructions Start Date Status Kenalog 40 mg/mL suspension for injection RxNorm: 2020253 Milliliter 06/12/2018 No longer Active Immunizations Vaccine [...] abnormal findings ICD-10: Z00.01 ICD-9: V70.0 08/10/2018 Essential (primary) hypertension ICD-10: I10 ICD-9: 401.1 07/26/2018 Dizziness and giddiness ICD-10: R42 ICD-9: 780.4 07/26/2018 Encounter for immunization ICD-10: Z23 ICD-9: [...] unspecified ICD- 10: F32.9 ICD-9: 311 01/20/2016 Hypotension, unspecified ICD-10: I95.9 ICD-9: 458.9 12/16/2015 Gout, unspecified ICD-10: M10.9 ICD-9: 274.9 12/16/2015 Hypoxemia ICD-10: R09.02 ICD-9: 799.02 11/27/2015 Dyspnea, unspecified ICD-10: R06.00 ICD-9: 786.09 11/27/2015 Gastro-esophageal reflux disease without esophagitis ICD-10 [...] Observation Code Item Item Code Result Date Urinalysis Ord28 U-Color Yellow 07/14/2018 Urinalysis Ord28 [...] 29.0 pg 07/14/2018 Cbc With Differential Ord2 Russell% 7.5 % 07/14/2018 Cbc With Differential Ord2 [...] 1.92 K/ul 07/14/2018 Cbc With Differential Ord2 Russell ABS# 0.4 K/ul 07/14/2018 Cbc With Differential Ord2 Eos ABS# 0.2 K/ul 07/14/2018 Cbc With Differential Ord2 Baso ABS# 0.0 K/ul 07/14/2018 Renal Wjl258 NA 140 mEq/L 07/14/2018 Renal Ssi120 K 4.2 mEq/L 07/14/2018 Renal Boe691 CL 103 mEq/L 07/14/2018 Renal Xgf749 CO2 29.0 mEq/L 07/14/2018 Renal Blm059 ANION GAP 12 07/14/2018 Renal Fva168 Osmo 280 mOsmo 07/14/2018 Renal Akr543 GLUCOSE 95 mg/dL 07/14/2018 Renal Fri095 BUN 15 mg/dL 07/14/2018 Renal Cdz867 Creat 1.2 mg/dL 07/14/2018 Renal Smt048 eGFR 64 ml/min/1.73m2 07/14/2018 Renal Jmo054 B/C Ratio 12.8 Ratio 07/14/2018 Renal Wxu715 CALCIUM 9.6 mg/dL 07/14/2018 Renal Qmx360 PHOS 3.2 mg/dL 07/14/2018 Renal Wdo515 ALBUMIN 4.4 g/dL 07/14/2018 Magnesium Ord90 Mag [...] 29.7 pg 06/08/2018 Cbc With Differential Ord2 Russell% 8.7 % 06/08/2018 Cbc With Differential Ord2 [...] 2.14 K/ul 06/08/2018 Cbc With Differential Ord2 Russell ABS# 0.5 K/ul 06/08/2018 Cbc With Differential Ord2 Eos ABS# 0.2 K/ul 06/08/2018 Cbc With Differential Ord2 Baso ABS# 0.0 K/ul 06/08/2018 Comp Metabolic Bbs051 NA 139 mEq/L 06/08/2018 Comp Metabolic Vqk705 K 4.6 mEq/L 06/08/2018 Comp Metabolic Nqf931 CL 105 mEq/L 06/08/2018 Comp Metabolic Rba781 CO2 26.0 mEq/L 06/08/2018 Comp Metabolic Sfa238 ANION GAP 13 06/08/2018 Comp Metabolic Evn409 GLUCOSE 95 mg/dL 06/08/2018 Comp Metabolic Pvq275 Creat 1.2 mg/dL 06/08/2018 Comp Metabolic Wpa054 eGFR 59 ml/min/1.73m2 06/08/2018 Comp Metabolic Vwm923 BUN 12 mg/dL 06/08/2018 Comp Metabolic Nns130 B/C Ratio 9.7 Ratio 06/08/2018 Comp Metabolic Kvb384 CALCIUM 9.9 mg/dL 06/08/2018 Comp Metabolic Qst612 ALK PHOS 70 U/L 06/08/2018 Comp Metabolic Jou032 AST(SGOT) 21 U/L 06/08/2018 Comp Metabolic Qbu243 ALT(SGPT) 20 U/L 06/08/2018 Comp Metabolic Xvq692 BILI T 1.0 mg/dL 06/08/2018 Comp Metabolic Epp046 ALBUMIN 4.5 g/dL 06/08/2018 Comp Metabolic Fal023 TPRO 7.2 g/dL 06/08/2018 Comp Metabolic Eig144 GLOB 2.8 g/dL 06/08/2018 Comp Metabolic Ops602 A/G Ratio 1.6 Ratio 06/08/2018 Comp Metabolic Lnj358 Osmo 277 mOsmo 06/08/2018 Cbc With Differential [...] 90.7 fl 05/10/2018 Cbc With Differential Ord2 Russell% 6.5 % 05/10/2018 Cbc With Differential Ord2 MCH 30.6 pg 05/10/2018 Cbc With Differential Ord2 MCHC 33.8 pg 05/10/2018 Cbc With Differential Ord2 Eos% 3.2 % 05/10/2018 Cbc With Differential Ord2 PLT 330 K/ul 05/10/2018 Cbc With Differential Ord2 Baso% 0.4 % 05/10/2018 Cbc With Differential Ord2 Neut ABS# 3.08 K/ul 05/10/2018 Cbc With Differential Ord2 RDW 14.5 % 05/10/2018 Cbc With Differential Ord2 Lymph ABS# 1.94 K/ul 05/10/2018 Cbc With Differential Ord2 Russell ABS# 0.4 K/ul 05/10/2018 Cbc With Differential [...] Ord30 C/HDL 4.2 Ratio 01/26/2018 Comp Metabolic Iki892 NA 138 mEq/L 01/26/2018 Comp Metabolic Jbd247 K 4.2 mEq/L 01/26/2018 Comp Metabolic Xsm014 CL 105 mEq/L 01/26/2018 Comp Metabolic Lui222 CO2 23.0 mEq/L 01/26/2018 Comp Metabolic Vvy674 ANION GAP 14 01/26/2018 Comp Metabolic Xgv896 GLUCOSE 89 mg/dL 01/26/2018 Comp Metabolic Xzm749 Creat 1.1 mg/dL 01/26/2018 Comp Metabolic Qpk044 eGFR 70 ml/min/1.73m2 01/26/2018 Comp Metabolic Xuq820 BUN 18 mg/dL 01/26/2018 Comp Metabolic Hqd233 B/C Ratio 16.8 Ratio 01/26/2018 Comp Metabolic Kbe632 CALCIUM 9.2 mg/dL 01/26/2018 Comp Metabolic Zwf809 ALK PHOS 67 U/L 01/26/2018 Comp Metabolic Nlw075 AST(SGOT) 31 U/L 01/26/2018 Comp Metabolic Kjt722 ALT(SGPT) 23 U/L 01/26/2018 Comp Metabolic Klc189 BILI T 1.7 mg/dL 01/26/2018 Comp Metabolic Kbq999 ALBUMIN 3.9 g/dL 01/26/2018 Comp Metabolic Fkg376 TPRO 6.7 g/dL 01/26/2018 Comp Metabolic Hyv364 GLOB 2.8 g/dL 01/26/2018 Comp Metabolic Pqc586 A/G Ratio 1.4 Ratio 01/26/2018 Comp Metabolic Vda992 Osmo 277 mOsmo 01/26/2018 Cbc With Differential [...] 30.7 pg 01/26/2018 Cbc With Differential Ord2 Russell% 7.1 % 01/26/2018 Cbc With Differential Ord2 [...] 2.40 K/ul 01/26/2018 Cbc With Differential Ord2 Russell ABS# 0.5 K/ul 01/26/2018 Cbc With Differential Ord2 Eos ABS# 0.2 K/ul 01/26/2018 Cbc With Differential Ord2 Baso ABS# 0.0 K/ul 01/26/2018 Tsh Ord6 TSH (3rd IS) 1.81 uIU/mL 01/26/2018 Testosterone Ugv175 Testo 370.3 ng/dL 01/26/2018 C A/B FLU [id number] Influenza A Scr Negative 12/08/2017 C A/B FLU [id number] Influenza B Scr Negative 12/08/2017 C A/B FLU [id number] Influenza Intrp B AG: PRID:PT:NOSE:NOM:IF See Footnote [...] 89.6 fl 04/11/2017 Cbc With Differential Ord2 Russell% 8.1 % 04/11/2017 Cbc With Differential Ord2 [...] 1.91 K/ul 04/11/2017 Cbc With Differential Ord2 [place] ABS# 0.5 K/ul 04/11/2017 Cbc With Differential Ord2 Eos ABS# 0.2 K/ul 04/11/2017 Cbc With Differential Ord2 Baso ABS# 0.0 K/ul 04/11/2017 Comp Metabolic Vyr965 NA 140 mEq/L 04/11/2017 Comp Metabolic Key048 K 4.1 mEq/L 04/11/2017 Comp Metabolic Ian492 CL 105 mEq/L 04/11/2017 Comp Metabolic Nzj433 CO2 26.0 mEq/L 04/11/2017 Comp Metabolic Bdm651 ANION GAP 13 04/11/2017 Comp Metabolic Twv611 GLUCOSE 88 mg/dL 04/11/2017 Comp Metabolic Ctd186 Creat 1.1 mg/dL 04/11/2017 Comp Metabolic Vjh259 eGFR 66 ml/min/1.73m2 04/11/2017 Comp Metabolic Qfz357 BUN 18 mg/dL 04/11/2017 Comp Metabolic Gmq084 B/C Ratio 15.9 Ratio 04/11/2017 Comp Metabolic Bpo942 CALCIUM 9.0 mg/dL 04/11/2017 Comp Metabolic Zzx239 ALK PHOS 72 U/L 04/11/2017 Comp Metabolic Syv022 AST(SGOT) 22 U/L 04/11/2017 Comp Metabolic Qye439 ALT(SGPT) 26 U/L 04/11/2017 Comp Metabolic Ozz356 BILI T 1.0 mg/dL 04/11/2017 Comp Metabolic Ctw360 ALBUMIN 4.0 g/dL 04/11/2017 Comp Metabolic Dzq370 TPRO 6.4 g/dL 04/11/2017 Comp Metabolic Rmv353 GLOB 2.4 g/dL 04/11/2017 Comp Metabolic Fhv839 A/G Ratio 1.6 Ratio 04/11/2017 Comp Metabolic Fxy456 Osmo 281 mOsmo 04/11/2017 Vitamin D 25 Oh Bwl1642 VITAMIN D, 25 HYDROXY 65.52 ng/mL Cbc [...] 28.5 pg 05/18/2016 Cbc With Differential Ord2 Russell% 7.2 % 05/18/2016 Cbc With Differential Ord2 [...] 1.80 K/ul 05/18/2016 Cbc With Differential Ord2 [place] ABS# 0.4 K/ul 05/18/2016 Cbc With Differential Ord2 Eos ABS# 0.2 K/ul 05/18/2016 Cbc With Differential Ord2 Baso ABS# 0.0 K/ul 05/18/2016 Magnesium Ord90 Mag 2.0 mg/dL 05/18/2016 Renal Yby414 NA 139 mEq/L 05/18/2016 Renal Mao902 K 4.0 mEq/L 05/18/2016 Renal Tms862 CL 104 mEq/L 05/18/2016 Renal Gew155 CO2 27.0 mEq/L 05/18/2016 Renal Yyf261 ANION GAP 12 05/18/2016 Renal Wnw220 Osmo 279 mOsmo 05/18/2016 Renal Mmu913 GLUCOSE 91 mg/dL 05/18/2016 Renal Uhh202 BUN 18 mg/dL 05/18/2016 Renal Ewr300 Creat 1.3 mg/dL 05/18/2016 Renal Yqb459 eGFR 59 ml/min/1.73m2 05/18/2016 Renal Ntl934 B/C Ratio 14.3 Ratio 05/18/2016 Renal Stv209 CALCIUM 9.3 mg/dL 05/18/2016 Renal Xay363 PHOS 3.2 mg/dL 05/18/2016 Renal Gxk836 ALBUMIN 4.2 g/dL 05/18/2016 Random Urine Protein/Creatinine Ratio Lbs0849 U Prot 15.0 mg/dl 05/18/2016 Random Urine Protein/Creatinine Ratio Maw6920 U CREAT 141.0 mg/dL 05/18/2016 Random Urine Protein/Creatinine Ratio Xnn9135 R MTP/Creat Ratio 0.11 05/18/2016 Urinalysis Ord28 [...] 28.5 pg 02/19/2016 Cbc With Differential Ord2 Russell% 9.5 % 02/19/2016 Cbc With Differential Ord2 [...] 1.91 K/ul 02/19/2016 Cbc With Differential Ord2 [place] ABS# 0.5 K/ul 02/19/2016 Cbc With Differential Ord2 Eos ABS# 0.2 K/ul 02/19/2016 Cbc With Differential Ord2 Baso ABS# 0.0 K/ul 02/19/2016 Cbc With Differential Ord2 New Analyzer Notice Please note new ref ranges starting 10-29-2015 due to implemntation of new five part differential hematolgy analyzer. 02/19/2016 Tsh Ord6 hTSH II 2.10 uIU/mL 02/19/2016 Comp Metabolic Kqt813 NA 138 mEq/L 02/19/2016 Comp Metabolic Inm341 K 3.8 mEq/L 02/19/2016 Comp Metabolic Pin806 CL 103 mEq/L 02/19/2016 Comp Metabolic Gxg842 CO2 28.0 mEq/L 02/19/2016 Comp Metabolic Xiz380 ANION GAP 11 02/19/2016 Comp Metabolic Ikm610 GLUCOSE 94 mg/dL 02/19/2016 Comp Metabolic Tcw449 Creat 1.0 mg/dL 02/19/2016 Comp Metabolic Dew277 eGFR 75 ml/min/1.73m2 02/19/2016 Comp Metabolic Shu318 BUN 18 mg/dL 02/19/2016 Comp Metabolic Etn575 B/C Ratio 17.6 Ratio 02/19/2016 Comp Metabolic Spl327 CALCIUM 9.6 mg/dL 02/19/2016 Comp Metabolic Vrw793 ALK PHOS 93 U/L 02/19/2016 Comp Metabolic Nil547 AST(SGOT) 23 U/L 02/19/2016 Comp Metabolic Osi338 ALT(SGPT) 19 U/L 02/19/2016 Comp Metabolic Kxb258 BILI T 0.8 mg/dL 02/19/2016 Comp Metabolic Dvn779 ALBUMIN 4.1 g/dL 02/19/2016 Comp Metabolic Dnk574 TPRO 6.8 g/dL 02/19/2016 Comp Metabolic Lpi181 GLOB 2.7 g/dL 02/19/2016 Comp Metabolic Sqm618 A/G Ratio 1.5 Ratio 02/19/2016 Comp Metabolic Jgg103 Osmo 277 mOsmo 02/19/2016 Uric Acid Ord77 Uric A 6.0 mg/dL 02/19/2016 Total Psa Ord10 PSA 0.82 ng/mL 02/19/2016 Comp Metabolic Pyt429 NA 140 mEq/L 12/16/2015 Comp Metabolic Nue600 K 4.0 mEq/L 12/16/2015 Comp Metabolic Ubp552 CL 105 mEq/L 12/16/2015 Comp Metabolic Khb049 CO2 24.0 mEq/L 12/16/2015 Comp Metabolic Bky292 ANION GAP 15 12/16/2015 Comp Metabolic Qxp196 GLUCOSE 85 mg/dL 12/16/2015 Comp Metabolic Rja698 Creat 1.2 mg/dL 12/16/2015 Comp Metabolic Brt344 eGFR 65 ml/min/1.73m2 12/16/2015 Comp Metabolic Geh683 BUN 14 mg/dL 12/16/2015 Comp Metabolic Edg936 B/C Ratio 12.1 Ratio 12/16/2015 Comp Metabolic Cte094 CALCIUM 9.1 mg/dL 12/16/2015 Comp Metabolic Vqk413 ALK PHOS 162 U/L 12/16/2015 Comp Metabolic Ivl357 AST(SGOT) 14 U/L 12/16/2015 Comp Metabolic Vzs662 ALT(SGPT) 17 U/L 12/16/2015 Comp Metabolic Hqf132 BILI T 1.0 mg/dL 12/16/2015 Comp Metabolic Pqd885 ALBUMIN 3.4 g/dL 12/16/2015 Comp Metabolic Wfg644 TPRO 6.2 g/dL 12/16/2015 Comp Metabolic Auw378 GLOB 2.9 g/dL 12/16/2015 Comp Metabolic Kfy923 A/G Ratio 1.2 Ratio 12/16/2015 Comp Metabolic Trc047 Osmo 279 mOsmo 12/16/2015 Uric Acid Ord77 [...] 29.9 % 12/16/2015 Cbc With Differential Ord2 Russell% 7.5 % 12/16/2015 Cbc With Differential Ord2 [...] 1.52 K/ul 12/16/2015 Cbc With Differential Ord2 Russell ABS# 0.4 K/ul 12/16/2015 Cbc With Differential [...] C/HDL 4.0 Ratio 07/21/2015 Urine Protein 24Hr Chb447 U Prot 5.1 mg/dl 05/16/2015 Urine Protein 24Hr Cvc481 U Prot24 71.5 mg/24hr 05/16/2015 Total Volume Urine Ixi891 TV/24hr 1400 ml 05/16/2015 Total Psa Ord10 PSA 0.70 ng/mL 05/15/2015 Renal Sbz577 NA 135 mEq/L 05/15/2015 Renal Gjl792 K 3.9 mEq/L 05/15/2015 Renal Wjo424 CL 101 mEq/L 05/15/2015 Renal Fnk572 CO2 27.0 mEq/L 05/15/2015 Renal Fka156 ANION GAP 11 05/15/2015 Renal Saa884 Osmo 274 mOsmo 05/15/2015 Renal Pfd709 GLUCOSE 132 mg/dL 05/15/2015 Renal Tzg773 BUN 19 mg/dL 05/15/2015 Renal Ojg316 Creat 1.1 mg/dL 05/15/2015 Renal Lsj883 eGFR 67 ml/min/1.73m2 05/15/2015 Renal Kkj353 B/C Ratio 17.0 Ratio 05/15/2015 Renal Mtr421 CALCIUM 9.6 mg/dL 05/15/2015 Renal Dha984 PHOS 3.0 mg/dL 05/15/2015 Renal Nnt437 ALBUMIN 4.3 g/dL 05/15/2015 Cbc With Differential [...] Formatting Model/CDA Sections, Assigned to/Sharee Ramirez CPT-4: [id number] 07/05/2018 THER/PROPH/DIAG INJ SC/IM CPT-4: 15707 06/12/2018 TRIAMCINOLONE ACET INJ NOS CPT-4: J3301 06/12/2018 PPPS, SUBSEQ VISIT CPT -4: G0439 08/03/2017 ADMIN INFLUENZA VIRUS VAC CPT-4: G0008 06/28/2016 FLU VACC PRSV FREE INC ANTIG CPT-4: 23923 06/28/2016 TENIVAC TD VACCINE NO PRSRV 7/> IM CPT-4: 29247 06/28/2016 OCCULT BLOOD FECES CPT -4: 27455 02/19/2015 Vital Signs Date Vital 09/26/2018 Blood Pressure 1: 130/80 Code : 8480-6 BMI: 29.6 Code : 13781-2 Heart Rate 1 : 98 bpm Height: 6' SpO2: 93% Weight: 218 lbs 08/10/2018 BMI: 29.4 Code: 01170-1 Height: 6' Weight: 217 lbs 07/26/2018 Blood Pressure 1: 116/72 Code : 8480-6 BMI: 29.4 Code : 58138-6 Heart Rate 1 : 102 bpm Height: 6' SpO2: 96% Weight: 217 lbs 07/05/2018 Blood Pressure 1: 132/72 Code : 8480-6 Heart Rate 1: 60 bpm SpO2: 95% 06/12/2018 Blood Pressure 1: 120/78 Code : 8480-6 BMI: 29.6 Code : 06805-8 Heart Rate 1 : 103 bpm Height: 6' SpO2: 96% Weight: 218 lbs 05/10/2018 Blood Pressure 1: 114/68 Code : 8480-6 BMI: 29.4 Code : 28935-2 Heart Rate 1 : 92 bpm Height: 6' SpO2: 97% Weight: 217 lbs 03/27/2018 Blood Pressure 1: 126/74 Code : 8480-6 BMI: 30.1 Code : 30110-0 Heart Rate 1 : 103 bpm Height: 6' SpO2: 96% Weight: 222 lbs 01/25/2018 Blood Pressure 1: 122/70 Code : 8480-6 Blood Pressure 2: 126/73 Code: 8480-6 Heart Rate 1: 63 bpm SpO2: 94% 01/24/2018 Blood Pressure 1: 110/72 Code : 8480-6 BMI: 29.7 Code : 24462-8 Heart Rate 1 : 88 bpm Height: 6' SpO2: 95% Weight: 219 lbs 12/08/2017 Blood Pressure 1: 120/68 Code : 8480-6 BMI: 30.0 Code : 23461-0 Heart Rate 1 : 91 bpm Height: 6' SpO2: 96% Temperature: 36.7 (C) / 98.1 (F) Weight: 221 lbs 10/27/2017 Blood Pressure 1: 124/76 Code : 8480-6 BMI: 30.1 Code : 02840-9 Heart Rate 1 : 69 bpm Height: 6' SpO2: 95% Weight: 222 lbs 09/29/2017 Blood Pressure 1: 118/66 Code : 8480-6 BMI: 29.9 Code : 38392-9 Heart Rate 1 : 81 bpm Height: 6' SpO2: 95% Weight: 220 lbs 8 oz 09/01/2017 Blood Pressure 1: 122/82 Code : 8480-6 BMI: 29.6 Code : 58803-4 Heart Rate 1 : 75 bpm Height: 6' SpO2: 97% Weight: 218 lbs 08/03/2017 Blood Pressure 1: 120/68 Code : 8480-6 Heart Rate 1: 68 bpm Height: 6' SpO2: 94% Waist Measure (cm): 97 cm 04/26/2017 Blood Pressure 1: 122/72 Code : 8480-6 BMI: 29.4 Code : 91934-2 Heart Rate 1 : 85 bpm Height: 6' SpO2: 92% Weight: 217 lbs 01/25/2017 Blood Pressure 1: 118/78 Code : 8480-6 BMI: 29.4 Code : 84138-6 Heart Rate 1 : 72 bpm Height: 6' SpO2: 94% Temperature: 36.9 (C) / 98.5 (F) Weight: 217 lbs 10/26/2016 Blood Pressure 1: 152/86 Code : 8480-6 BMI: 29.7 Code : 45357-3 Heart Rate 1 : 58 bpm Height: 6' Weight: 219 lbs 09/27/2016 Blood Pressure 1: 138/80 Code : 8480-6 BMI: 29.4 Code : 63714-3 Heart Rate 1 : 52 bpm Height: 6' SpO2: 98% Weight: 217 lbs 06/28/2016 Blood Pressure 1: 128/86 Code : 8480-6 BMI: 29.6 Code : 69328-9 Heart Rate 1 : 69 bpm Height: 6' SpO2: 93% Weight: 218 lbs 04/27/2016 Blood Pressure 1: 118/82 Code : 8480-6 BMI: 29.3 Code : 14574-3 Heart Rate 1 : 85 bpm Height: 6' SpO2: 98% Weight: 216 lbs 02/17/2016 Blood Pressure 1: 132/80 Code : 8480-6 BMI: 28.8 Code : 90230-1 Heart Rate 1 : 94 bpm Height: 6' SpO2: 98% Weight: 212 lbs 01/20/2016 Blood Pressure 1: 120/70 Code : 8480-6 BMI: 29.7 Code : 94337-2 Heart Rate 1 : 87 bpm Height: 6' SpO2: 92% Weight: 219 lbs 01/06/2016 Blood Pressure 1: 122/88 Code : 8480-6 BMI: 28.8 Code : 46389-9 Heart Rate 1 : 83 bpm Height: [...] Code : 8480-6 BMI: 30.5 Code : 01788-4 Heart Rate 1 : 82 bpm Height: 6' SpO2: 92% Weight: 225 lbs 06/09/2015 Blood Pressure 1: 130/76 Code : 8480-6 BMI: 31.1 Code : 97886-0 Heart Rate 1 : 65 bpm Height: 6' SpO2: 96% Weight: 229 lbs 04/29/2015 Blood Pressure 1: 118/78 Code : 8480-6 BMI: 30.7 Code : 97769-7 Heart Rate 1 : 70 bpm Height: 6' Weight: 226 lbs 02/19/2015 Blood Pressure 1: 118/70 Code : 8480-6 BMI: 29.7 Code : 78961-8 Heart Rate 1 : 68 bpm Height: [...] data Encounters Encounter Performer Location Codes Date ([id number]) 74341 EST. PATIENT, LEVEL IV Diagnosis: Essential (primary) hypertension[ICD10: I10] Diagnosis: Vertigo of central origin, right ear[ICD10: H81.41] Diagnosis: Low back pain[ICD10: M54.5] [facility] CPT- 4: 16186 09/26/2018 ([id number]) 26281 EST. PATIENT, LEVEL III Diagnosis: Dizziness and giddiness[ICD10: R42] Diagnosis: Vertigo of central origin, right ear[ICD10: H81.41] Diagnosis: Essential (primary) hypertension[ICD10: I10] [facility] CPT-4: 87158 07/26/2018 ([id number]) 58228 EST. PATIENT, LEVEL III Diagnosis: Essential (primary) hypertension[ICD10: I10] Lesley Butcher MD [facility] CPT-4: 93340 06/12/2018 ([id number]) 47292 EST. PATIENT, LEVEL IV Diagnosis: Other iron deficiency anemias[ICD10: D50.8] Diagnosis: Weakness[ICD10: R53.1] Diagnosis: Diverticulosis of large intestine without perforation or abscess with bleeding[ICD10: K57.31] Lesley Butcher MD [facility] CPT-4: 36846 05/10/2018 ([id number]) 97809 EST. PATIENT, LEVEL IV Diagnosis: Essential (primary) hypertension[ICD10: I10] Diagnosis: Major depressive disorder, recurrent, mild[ICD10: F33.0] Diagnosis: Sensorineural hearing loss, bilateral[ICD10: H90.3] Lesley Butcher MD [facility] CPT-4: 29235 03/27/2018 ([id number]) Miscellaneous no charge Diagnosis: Essential (primary) hypertension[ICD10: I10] Mady Butcher MD, [facility] CPT-4: 96031 01/25/2018 ([id number]) 20814 EST. PATIENT, LEVEL IV Diagnosis: Essential (primary) hypertension[ICD10: I10] Diagnosis: Sensorineural hearing loss, bilateral[ICD10: H90.3] Diagnosis: Mixed hyperlipidemia[ICD10: E78.2] Diagnosis: Major depressive disorder, recurrent, mild[ICD10: F33.0] Lesley Butcher MD, [facility] CPT-4: 23605 01/24/2018 07934 EST. PATIENT, LEVEL IV Diagnosis: Other malaise[ICD10: R53.81] Diagnosis: Fever, unspecified[ICD10: R50.9] Mady Butcher MD, [facility] CPT- 4: 81643 12/08/2017 ([id number]) 31314 EST. PATIENT, LEVEL III Diagnosis: Essential (primary) hypertension[ICD10: I10] Lesley Butcher MD [facility] CPT-4: 92205 10/27/2017 ([id number]) 17153 EST. PATIENT, LEVEL III Diagnosis: Benign prostatic hyperplasia with lower urinary tract symptoms[ICD10 : N40.1] Diagnosis: Dysphagia, pharyngeal phase[ICD10: R13.13] Lesley Butcher MD [facility] CPT-4: 85193 09/29/2017 ([id number]) 80163 EST. PATIENT, LEVEL IV Diagnosis: Essential (primary) hypertension[ICD10: I10] Diagnosis: Major depressive disorder, recurrent, mild[ICD10: F33.0] Diagnosis: Sensorineural hearing loss, bilateral[ICD10: H90.3] Lesley Butcher MD [facility] CPT-4: 94704 09/01/2017 ([id number]) 80404 EST. PATIENT, LEVEL IV Diagnosis: Essential (primary) hypertension[ICD10: I10] Diagnosis: Major depressive disorder, recurrent, mild[ICD10: F33.0] Diagnosis: Mixed hyperlipidemia[ICD10: E78.2] Lesley Butcher MD [facility] CPT-4: 70185 04/26/2017 ([id number]) 20503 EST. PATIENT, LEVEL IV Diagnosis: Essential (primary) hypertension[ICD10: I10] Diagnosis: Major depressive disorder, recurrent, mild[ICD10: F33.0] Diagnosis: Urge incontinence[ICD10: N39.41] Lesley Butcher MD [facility] CPT-4: 82107 01/25/2017 ([id number]) 89411 EST. PATIENT, LEVEL IV Diagnosis: Essential (primary) hypertension[ICD10: I10] Diagnosis: Major depressive disorder, recurrent, mild[ICD10: F33.0] Diagnosis: Urge incontinence[ICD10: N39.41] Lesley Butcher MD [facility] CPT-4: 89935 10/26/2016 ([id number]) 02996 EST. PATIENT, LEVEL III Diagnosis: Essential (primary) hypertension[ICD10: I10] Diagnosis: Major depressive disorder, recurrent, mild[ICD10: F33.0] Diagnosis: Urge incontinence[ICD10: N39.41] Lesley Butcher MD [facility] CPT-4: 25891 09/27/2016 ([id number]) 74422 EST. PATIENT, LEVEL IV Diagnosis: Essential (primary) hypertension[ICD10: I10] Diagnosis: Encounter for immunization[ICD10: Z23] Diagnosis: Laceration without foreign body of left forearm, initial encounter[ ICD10: S51.812A] Diagnosis: Laceration without foreign body of right forearm, initial encounter[ ICD10: S51.811A] Diagnosis: Major depressive disorder, recurrent, mild[ICD10: F33.0] Lesley Butcher MD, [facility] CPT-4: 07837 06/28/2016 ([id number]) 15150 EST. 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 CPT-4: 46257 04/27/2016 ([id number]) 06127 EST. 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 CPT-4: 67900 02/17/2016 ([id number]) 98953 EST. 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 CPT-4: 01118 01/20/2016 82633 EST. 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 CPT-4: 59379 01/06/2016 29364 EST. PATIENT, LEVEL IV Diagnosis: Weakness[ICD10: R53.1] Diagnosis: Gout, unspecified[ICD10: M10.9] Diagnosis: Hypotension, unspecified[ICD10: I95.9] Lesley Butcher MD, [facility] CPT-4: 53168 12/16/2015 ([id number]) Patient admitted to the hospital from clinic (NO CHARGE) Diagnosis: Hypoxemia[ICD10: R09.02] Diagnosis: Weakness[ICD10: R53.1] Diagnosis: Dyspnea, unspecified[ICD10: R06.00] Mady Butcher MD, [facility] CPT-4: 87482U 11/27/2015 ([id number]) 19220 EST. PATIENT, LEVEL III Diagnosis: Essential (primary) hypertension[ICD10: I10] Diagnosis: Gastro-esophageal reflux disease without esophagitis[ICD10: K21.9] Lesley Butcher MD, [facility] CPT-4: 11444 07/30/2015 ([id number]) 58636 EST. PATIENT, LEVEL III Diagnosis: ESSENTIAL HYPERTENSION[ICD9: 401.9] Merline Butcher MD, [facility] CPT-4: 75455 06/09/2015 ([id number]) 56029 EST. PATIENT, LEVEL III Diagnosis: ESSENTIAL HYPERTENSION[ICD9: 401.9] Lesley Butcher MD, [facility] CPT-4: 43100 04/29/2015 ([id number]) OFFICE/OUTPATIENT VISIT NEW Diagnosis: ESSENTIAL HYPERTENSION[ICD9: 401.9] Diagnosis: DEPRESSIVE DISORDER NEC[ICD9: 311] Diagnosis: Enlarged prostate[ICD9: 600.00] Diagnosis: Nasal inflammation due to allergen[ICD9: 477.9] Lesley Butcher MD, [facility] CPT-4: 96829 02/19/2015 Plan of Care Planned Activity Notes [...] cryotherapy sessions. 09/26/2018 [phone] (15 min) Moderate 09/26/2018 Patient Education: [...] surrogate. 08/10/2018 [phone] [facility] - Annual Wellness Visit 08/10/2018 Patient [...] home. 07/26/2018 App[facility]ment[facility] [phone] [facility] (15 min) Moderate 07/26/2018 Patient Education: [...] dexamethasone. 06/12/2018 Appointment: Lesley Butcher WPtel: [phone] [facility] (15 min) Moderate 06/12/2018 Patient Education: Patient Medication Summary Completed 06/12/2018 Visit Plan: Diverticulosis with recent GI bleeding - improved - continue with supportive care, avoid foods which cause any abdominal pain - monitor symptoms - call if any pain or bleeding recurs. Anemia - check labs today. Weakness - continue with increasing of activity. 05/10/2018 App[facility]ment[facility] [phone] [facility] (30 min) Complex 05/10/2018 Patient Education: [...] cochlear implant. 03/27/2018 Appointment: Lesley Butcher WPtel: [phone] [facility] (15 min) Moderate 03/27/2018 Patient Education: [...] to medications. 01/24/2018 Appointment: Lesley Butcher WPtel: [facility] (15 min) Moderate 01/24/2018 Patient Education: Patient Medication Summary Completed 01/24/2018 Visit Plan: Influenza - pt started on tamiflu - pt to start on anti-inflammatories, tylenol and monitor symptoms. Pt to call if not improving. Pt to alert any close contacts as to illness. 12/08/2017 Appointment: Mady Dunne WPtel: [facility] (30 min) Complex 12/08/2017 Patient [...] at home. 10/27/2017 Appointment: Lesley Butcher WPtel: [facility] (15 min) Moderate 10/27/2017 Patient Education: Patient Medication Summary Completed 10/27/2017 Referral: External, Ordering Provider Referral Initiated 10/12/2017 Visit Plan: BPH - continue with dutasteride and flomax Dysphagia - referral to Dr. Kumar for EGD - question stricture - dysphagia intermittently - hx of stricture. 09/29/2017 Appointment: [facility] (15 min) Moderate 09/29/2017 Patient Education: Patient Medication Summary Completed 09/29/2017 Care Plan: Referral Order SNOMED-CT : [id number] Pending 09/29/2017 Visit Plan: Hypertension - well [...] implant. 09/01/2017 App[facility]ment: [facility] [phone] [facility] (15 min) Moderate 09/01/2017 Patient Education: Patient Medication Summary Completed 09/01/2017 Care Plan: Referral Order SNOMED-CT : [id number] Pending 09/01/2017 Visit Plan: Medicare Exam - [...] care surrogate. 08/03/2017 Appointment[phone] [facility] - Welcome to Medicare visit 08/03/2017 [...] current medications. 04/26/2017 Appointment: Lesley Butcher WPtel: [phone] [facility] (15 min) Moderate 04/26/2017 Patient Education: Patient [...] 10mg daily. 01/25/2017 Appointment: [facility] [phone] [facility] (30 min) Complex 01/25/2017 Patient Education: [...] [place] 10/26/2016 Appointment: Lesley Butcher WPtel: [facility] (15 min) Moderate 10/26/2016 Patient Education: Patient [...] occur. 09/27/2016 Appointment: Lesley Butcher WPtel: [phone] [facility] (15 min) Moderate 09/27/2016 Patient Education: [...] shelli andrea 06/28/2016 Appointment: Lesley Butcher WPtel: [facility] (15 min) Moderate 06/28/2016 Patient Education: [...] and plan. 02/17/2016 Appointment[phone] [facility] (30 min) Complex 02/17/2016 Patient Education: Patient [...] Completed 12/16/2015 App[facility]ment[facility] [phone] [facility] (15 min) Moderate 12/04/2015 Appointment: [facility] Butcher [facility]Ptel: [facility] [place] (15 min) Moderate 12/02/2015 Visit Plan: Admission [...] PHARMACY 07/30/2015 Appointment: [facility] [phone] [facility] [place] (15 min) Moderate 07/30/2015 Patient Education: Patient [...] home. 04/29/2015 Appointment: [facility] [phone] [facility] (15 min) Moderate 04/29/2015 Patient Education: Patient [...] External, Ordering Provider Referral Appointment Requested Referral: [facility] 09/12 Referral info faxed Appointment Requested Referral: [facility] Referral Appointment Requested Instructions Comment . [...] planned injection in back and call the cloth shader about a biopsy of the lesion on [...] if symptoms of urinary retention occur. . BPH - continue with dutasteride and [...] GET THE FLU SHOT AT THE PHARMACY CHECK FASTING LABS DEXAMETHASONE 0.5MG-TAKE A FULL [...] Chronic gout-symptoms stable-continue allopurinol Allergies-recommend allergy eye drops-anegla Vang-increase dexamethasone x 1 month ADDENDUM: Doctor's [...]
--- OUTSIDE RECORDS SUMMARY | 2018-12-19 12:48 | XMS REPORT | CCD ---
Author Author [facility] Organization [facility] Address [address] [place] [address] Phone Care Team Providers Care Assembler Cards And Announcements Name Role Phone PP Unavailable CCM Unavailable Summary Purpose Interface Exchange Insurance Providers Payer name Policy type / Coverage type Covered alliance party ID Effective Begin Date Effective End Date WPS Medicare Part B Medicare Part B [id number] 2018 Unknown [facility] Medicare Part B [id number] 2018 Unknown Family history Father Diagnosis Age At Onset Hypertension Unknown Coronary Artery Disease Unknown Sister Diagnosis Age At Onset Heart disease Unknown Mother Diagnosis Age At Onset Coronary Artery Disease Unknown Hypertension Unknown Social History Social History Element Codes Description Effective Dates Marital status Unknown 02/19/2015 Number of children Unknown 2 02/19/2015 Employment Unknown Retired 02/19/[address]: 990223628 Has never smoked or chewed tobacco 02/19/2015 Alcohol history Unknown occasionally drinks alcohol 02/19/2015 Allergies, Adverse Reactions, Alerts Substance Reaction Codes Entered Date Inactivated Date Status bactrim RxNorm: 383103 12/19/2015 No Inactive Date Active ciprofloxacin RxNorm: 82180 02/18/2015 No Inactive Date Active Past Medical History Illness Codes Condition Status Onset Date Resolved Date Encounter for general adult medical examination with abnormal findings ICD-9: V70.0 ICD-10: Z00.01 Active 08/03/2017 Unknown Dizziness and giddiness ICD-9: 780.4 ICD-10: R42 Active 07/26/2018 Unknown Essential (primary) hypertension ICD-9: 401.1 ICD-10: I10 Active 06/27/2016 Unknown Vertigo of central origin, 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 Active 07/26/2018 Unknown Encounter for immunization ICD-9: V04.81 ICD-10: [...] ICD-9: 389.11 ICD-10: H90.3 Active 09/01/2017 Unknown Essential (primary) hypertension ICD-9: 401.9 ICD-10: I10 Active 02/18/2015 Unknown Mixed hyperlipidemia ICD-9: 272.2 ICD-10: E78.2 [...] Problems Condition Codes Effective Dates Condition Status Encounter for general adult medical examination with abnormal findings ICD-9: V70.0 ICD-10: Z00.01 08/03/2017 Active Dizziness and giddiness ICD-9: 780.4 ICD-10: R42 07/26/2018 Active Essential (primary) hypertension ICD-9: 401.1 ICD-10: I10 06/27/2016 Active Vertigo of central origin, 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 07/26/2018 Active Encounter for immunization ICD-9: V04.81 ICD-10: [...] bilateral ICD-9: 389.11 ICD-10: H90.3 09/01/2017 Active Essential (primary) hypertension ICD-9: 401.9 ICD-10: I10 02/18/2015 Active Mixed hyperlipidemia ICD-9: 272.2 ICD-10: E78.2 [...] Start Date Stop Date Status Fill Instructions dexamethasone 0.5 mg tablet RxNorm: 039652 TAKE 1 TABLET BY MOUTH ONCE DAILY 08/29/2018 No Stop Date Active clonazepam 1 mg tablet RxNorm: 002773 1/2 Tablet(s) PO QHS 05/201812/21/2018 Active allopurinol 100 mg tablet RxNorm: 326735 TAKE ONE TABLET BY MOUTH ONCE DAILY 08/03/2018 No Stop Date Active citalopram 40 mg tablet RxNorm: 047172 TAKE ONE TABLET BY MOUTH ONCE DAILY 06/13/2018 No Stop Date Active Kenalog 40 mg/mL suspension for injection RxNorm: 3861989 Milliliter(s) Inj 06/12/2018 06/12/2018 Inactive clonazepam 1 mg tablet RxNorm: 170195 1 Tablet(s) PO QHS 201708/23/2018 Inactive citalopram 40 mg tablet RxNorm: 774264 1/2 Tablet(s) TAKE ONE TABLET BY MOUTH ONCE DAILY 05/24/2018 02/17/2019 Active losartan 50 mg tablet RxNorm: 002887 1/2 Tablet(s) PO daily 05/2018 No Stop Date Active clonazepam 1 mg tablet RxNorm: 958266 1/2 Tablet(s) TAKE ONE TABLET BY MOUTH ONCE DAILY AT BEDTIME AND ONE TABLET THREE TIMES DAILY NEEDED 05/24/2018 06/11/2018 Inactive spironolactone 25 mg tablet RxNorm: 140026 TAKE ONE TABLET BY MOUTH ONCE DAILY 05/22/2018 No Stop Date Active dexamethasone 0.5 mg tablet RxNorm: 578667 TAKE ONE TABLET BY MOUTH ONCE DAILY 02/21/2018 08/28/2018 Inactive Flomax 0.4 mg capsule RxNorm: 160972 TAKE ONE CAPSULE BY MOUTH ONCE DAILY IN THE EVENING 12/19/2017 No Stop Date Active Tamiflu 75 mg capsule RxNorm: 411216 1 Capsule(s) PO BID 201712/12/2017 Inactive clonazepam 1 mg tablet RxNorm: 465734 Tablet(s) TAKE ONE TABLET BY MOUTH ONCE DAILY AT BEDTIME AND ONE TABLET THREE TIMES DAILY NEEDED 11/28/2017 01/26/2018 Inactive pantoprazole 40 mg tablet,delayed release RxNorm: 367243 TAKE ONE TABLET BY MOUTH ONCE DAILY AT BEDTIME 11/07/2017 No Stop Date Active allopurinol 100 mg tablet RxNorm: 257537 TAKE ONE TABLET BY MOUTH ONCE DAILY 10/03/2017 08/02/2018 Inactive pantoprazole 40 mg tablet,delayed release RxNorm: 279815 1 Tablet(s) PO BID 09/01/2017 05/28/2018 Inactive Vitamin B-6 100 mg tablet RxNorm: 376472 1 Tablet(s) PO daily 09/01/2017 06/11/2018 Inactive dutasteride 0.5 mg capsule RxNorm: 756783 1 Capsule(s) PO QPM 09/01/2017 06/11/2018 Inactive spironolactone 25 mg tablet RxNorm: 604273 TAKE ONE TABLET BY MOUTH ONCE DAILY 08/15/2017 05/21/2018 Inactive citalopram 40 mg tablet RxNorm: 168990 TAKE ONE TABLET BY MOUTH ONCE DAILY 08/08/2017 05/04/2018 Inactive dexamethasone 0.5 mg tablet RxNorm: 552810 TAKE ONE TABLET BY MOUTH ONCE DAILY 08/08/2017 11/05/2017 Inactive clonazepam 1 mg tablet RxNorm: 255461 TAKE ONE TABLET BY MOUTH ONCE DAILY AT BEDTIME AND ONE THREE TIMES DAILY NEEDED 05/12/2017 08/08/2017 Inactive clonazepam 1 mg tablet RxNorm: 387116 1 Tablet(s) PO QHS AND 1 TAB PO TID PRN 05/12/2017 05/13/2017 Inactive oxybutynin chloride ER 10 mg tablet,extended release 24 hr RxNorm: 160851 1 Tablet (s) PO daily 04/29/2017 08/02/2017 Inactive dexamethasone 0.5 mg tablet RxNorm: 447113 TAKE ONE TABLET BY MOUTH ONCE DAILY 02/14/2017 04/14/2017 Inactive Flomax 0.4 mg capsule RxNorm: 284235 TAKE ONE CAPSULE BY MOUTH ONCE DAILY IN THE EVENING 02/14/2017 11/10/2017 Inactive pantoprazole 40 mg tablet,delayed release RxNorm: 327402 TAKE ONE TABLET BY MOUTH ONCE DAILY AT BEDTIME 02/14/20172016 Inactive oxybutynin chloride ER 10 mg tablet,extended release 24 hr RxNorm: 242882 1 Tablet (s) PO daily 01/25/2017 04/24/2017 Inactive dexamethasone 0.5 mg tablet RxNorm: 600657 TAKE ONE TABLET BY MOUTH ONCE DAILY 11/10/2016 12/09/2016 Inactive oxybutynin chloride ER 5 mg tablet,extended release 24 hr RxNorm: 740692 1 Tablet( s) PO daily 10/28/2016 10/27/2016 Inactive oxybutynin chloride ER 5 mg tablet,extended release 24 hr RxNorm: 349183 1 Tablet( s) PO daily 10/28/2016 01/24/2017 Inactive Detrol LA 2 mg capsule,extended release RxNorm: 879649 1 Capsule(s) PO QPM 10/26/2016 10/27/2016 Inactive clonazepam 1 mg tablet RxNorm: 235534 1 Tablet(s) PO QHS AND 1 TAB PO TID PRN 10/20/2016 04/17/2017 Inactive dexamethasone 0.5 mg tablet RxNorm: 694511 TAKE ONE TABLET BY MOUTH ONCE DAILY 10/06/2016 11/04/2016 Inactive allopurinol 100 mg tablet RxNorm: 157183 1 Tablet(s) PO daily 09/30/2016 09/24/2017 Inactive Vesicare 5 mg tablet RxNorm: 503877 1 Tablet(s) PO QPM 201512/12/2016 Inactive spironolactone 25 mg tablet RxNorm: 887295 1 Tablet(s) PO daily 08/06/2016 07/31/2017 Inactive citalopram 40 mg tablet RxNorm: 265182 1 Tablet(s) PO daily 09/201606/22/2017 Inactive Plavix 75 mg tablet RxNorm: 733284 1 Tablet(s) PO daily 2015 No Stop Date Active iron ER 159 mg (45 mg iron) tablet,extended release RxNorm: 705927 1 Tablet(s) PO daily 04/27/2016 08/31/2017 Inactive dexamethasone 0.5 mg tablet RxNorm: 865398 1/2 Tablet(s) PO daily 04/27/2016 02/20/2018 Inactive allopurinol 100 mg tablet RxNorm: 636320 1 Tablet(s) PO daily 04/27/2016 09/29/2016 Inactive clonazepam 1 mg tablet RxNorm: 943526 1 Tablet(s) PO QHS and 1 tab po TID prn 04/14/2016 10/07/2016 Inactive allopurinol 100 mg tablet RxNorm: 604457 1 Tablet(s) PO daily 02/17/2016 04/26/2016 Inactive citalopram 20 mg tablet RxNorm: 360504 1 Tablet(s) PO daily 02/201606/27/2016 Inactive Flomax 0.4 mg capsule RxNorm: 161720 1 Capsule(s) PO QPM 201501/13/2017 Inactive [SAVINGS FOR NON-COVERED DRUGS -- BIN:[id number], PCN: ASPROD1, Group: XXXXX, ID # XXXXXXX, Questions: . THIS IS NOT INSURANCE.] pantoprazole 40 mg tablet,delayed release RxNorm: 430150 1 Tablet(s) PO QHS 01/20/2016 01/13/2017 Inactive Colcrys 0.6 mg tablet RxNorm: 516477 1 Tablet(s) PO daily 201503/05/2016 Inactive take daily x 7 days then daily as needed for gout flair colchicine 0.6 mg tablet RxNorm: 577243 1 Tablet(s) PO BID 01/01/2016 Inactive doxycycline hyclate 100 mg tablet RxNorm: 135280 1 Tablet(s) PO BID 12/19/2015 12/28/2015 Inactive doxycycline hyclate 100 mg tablet RxNorm: 656007 1 Tablet(s) PO BID 12/19/2015 12/18/2015 Inactive allopurinol 100 mg tablet RxNorm: 475485 1 Tablet(s) PO daily 12/16/2015 02/16/2016 Inactive colchicine 0.6 mg tablet RxNorm: 853517 Tablet(s) PO 1.2 mg PO in the morning and 0.6 mg at night for 2 days. 12/16/2015 Inactive allopurinol 100 mg tablet RxNorm: 801618 1 Tablet(s) PO daily 12/16/2015 12/15/2015 Inactive Protonix 40 mg tablet,delayed release RxNorm: 044536 1 Tablet(s) PO daily 12/16/2015 01/14/2016 Inactive Bactrim DS 800 mg-160 mg tablet RxNorm: 192723 1 Tablet(s) PO BID 12/16/2015 12/18/2015 Inactive colchicine 0.6 mg tablet RxNorm: 113144 Tablet(s) PO 1.2 mg for the first dose and 0.6 mg an hour after 12/15/20152015 Inactive dexamethasone 0.5 mg tablet RxNorm: 721398 1 Tablet(s) PO 12/1202/09/2016 Inactive Plavix 75 mg tablet RxNorm: 423200 1 Tablet(s) PO every other day 12/12/2015 04/09/2016 Inactive nitroglycerin 0.4 mg sublingual tablet RxNorm: 864816 1 Tablet(s) SL x3 in 15 min as needed 12/12/2015 04/26/2016 Inactive clonazepam 1 mg tablet RxNorm: 307176 1 Tablet(s) PO QHS and 1 tab po TID prn 12/11/2015 12/03/2016 Inactive [place] 5 mg-325 mg tablet RxNorm: 251701 1-2 Tablet(s) PO Q6 as needed 12/11/2015 09/26/2016 Inactive clonazepam 1 mg tablet RxNorm: 129438 1 Tablet(s) PO QHS and 1 tab po TID prn 12/04/2015 12/10/2015 Inactive Flomax 0.4 mg capsule RxNorm: 163973 1 Capsule(s) PO QPM 201401/19/2016 Inactive [SAVINGS FOR NON-COVERED DRUGS -- BIN:[id number], PCN: ASPROD1, Group: XXXXX, ID # XXXXXXX, Questions: . THIS IS NOT INSURANCE.] Flomax 0.4 mg capsule RxNorm: 724298 1 Capsule(s) PO QPM 201409/21/2015 Inactive [SAVINGS FOR NON-COVERED DRUGS -- BIN:[id number], PCN: ASPROD1, Group: XXXXX, ID # XXXXXXX, Questions: . THIS IS NOT INSURANCE.] clonazepam 1 mg tablet RxNorm: 787881 1 Tablet(s) PO QHS 201412/03/2015 Inactive coenzyme Q10 10 mg tablet RxNorm: 990846 1 Tablet(s) PO daily 07/30/2015 01/05/2016 Inactive spironolactone 25 mg tablet RxNorm: 504500 1 Tablet(s) PO daily 07/28/2015 07/21/2016 Inactive spironolactone 25 mg tablet RxNorm: 609487 1 Tablet(s) PO daily 07/22/2015 07/27/2015 Inactive clonazepam 1 mg tablet RxNorm: 962655 1 Tablet(s) PO QHS 201408/28/2015 Inactive losartan 25 mg tablet RxNorm: 077490 1 Tablet(s) PO daily 201403/20/2015 Inactive Flonase Allergy Relief 50 mcg/actuation nasal spray, suspension RxNorm: 1 [place] NASAL BID 02/19/2015 04/26/2016 Inactive [SAVINGS FOR NON-COVERED DRUGS -- BIN:[id number], PCN: ASPROD1, Group: XXXXX, ID# [id number], Questions: [phone]. THIS IS NOT INSURANCE.] Flomax 0.4 mg capsule RxNorm: 825525 1 Capsule(s) PO QPM 201409/15/2015 Inactive [SAVINGS FOR NON-COVERED DRUGS -- BIN:[id number], PCN: ASPROD1, Group: XXXXX, ID # XXXXXXX, Questions: . THIS IS NOT INSURANCE.] citalopram 20 mg tablet RxNorm: 985447 1 Tablet(s) PO daily 03/201503/20/2015 Inactive atenolol 25 mg tablet RxNorm: 328978 1 Tablet(s) PO daily 201403/20/2015 Inactive Lipitor 20 mg tablet RxNorm: 015899 1 Tablet(s) PO daily 201403/20/2015 Inactive vitamin B complex oral RxNorm: 85632 oral No Start Date Active Claritin-D 24 Hour oral RxNorm: 134191 oral No Start Date Active cetirizine 10 mg tablet RxNorm: 3886779 1 Tablet(s) PO daily No Start Date Active Aleve 220 mg tablet RxNorm: 454538 Tablet(s) PO as needed No Start Date Active Vitamin D3 1,000 unit capsule RxNorm: 255731 2 Capsule(s) PO daily No Start Date Active Centrum Complete oral RxNorm: 99135 oral No Start Date Active glucosamine HCl 1,500 mg tablet RxNorm: 759677 1 Tablet(s) with 1200 mg chrondroitin PO daily No Start Date 2017 Inactive ranitidine 150 mg tablet RxNorm: 929249 1 Tablet(s) PO TID No Start Date 12/11/2015 Inactive [place] 5 mg-325 mg tablet RxNorm: 471927 1-2 Tablet(s) PO Q6 as needed No Start Date 12/10/2015 Inactive krill oil oral RxNorm : 78987 oral No Start Date 08/07/2018 Inactive Vitamin B-6 100 mg tablet RxNorm: 957558 1 Tablet(s) PO TID No Start Date 08/31/2017 Inactive spironolactone 25 mg tablet RxNorm: 046156 1 Tablet(s) PO daily No Start Date 07/21/2015 Inactive Vitamin D3 oral RxNorm : 2418 oral No Start Date 02/17/2016 Inactive clonazepam 1 mg tablet RxNorm: 990320 1 Tablet(s) PO daily No Start Date 05/22/2015 Inactive Glucosamine oral RxNorm: 4845 oral No Start Date 04/26/2016 Inactive losartan 50 mg tablet RxNorm: 637724 1 Tablet(s) PO daily No Start Date 05/23/2018 Inactive Plavix 75 mg tablet RxNorm: 678763 1 Tablet(s) PO every other day No Start Date 12/11/2015 Inactive Osteo Bi-Flex oral RxNorm: 9414153 oral No Start Date 09/01/2017 Inactive iron ER 159 mg (45 mg iron) tablet,extended release RxNorm: 156591 1 Tablet(s) PO BID No Start Date 04/26/2016 Inactive amlodipine 5 mg tablet RxNorm: 851174 1 Tablet(s) PO daily No Start Date 01/05/2016 Inactive aspirin 81 mg tablet,delayed release RxNorm: 717228 1 Tablet(s) PO daily No Start Date 05/09/2018 Inactive dexamethasone 0.5 mg tablet RxNorm: 022181 1 Tablet(s) PO No Start Date 12/11/2015 Inactive Vitamin B-12 1,000 mcg tablet RxNorm: 088139 6 Tablet(s) PO every other day No Start Date 06/11/2018 Inactive colchicine 0.6 mg tablet RxNorm: 711809 Tablet(s) PO 1.2 mg for the first dose and 0.6 mg an hour after No Start Date Inactive nitroglycerin 0.4 mg sublingual tablet RxNorm: 891814 1 Tablet(s) SL x3 in 15 min as needed No Start Date 12/11/2015 Inactive Fish Oil 1,000 mg capsule RxNorm: 1 Capsule(s) PO daily No Start Date 04/26/2016 Inactive Ecotrin Low Strength 81 mg tablet,enteric coated RxNorm: 9479340 1 Tablet(s) PO daily No Start Date 09/27/2016 Inactive Medication Administered Medication Codes Instructions Start Date Status Kenalog 40 mg/mL suspension for injection RxNorm: 6064003 Milliliter 06/12/2018 No longer Active Immunizations Vaccine Codes Date Status Influenza CVX: 141 07/05/2018 completed Influenza CVX: 141 08/01/2017 completed Pneumococcal CVX: 33 08/01/2017 completed Influenza CVX: 141 06/28/2016 completed Tetanus, Diptheria, Pertussis CVX: 113 completed Tetanus/Diptheria CVX: 113 06/28/2016 completed Pneumococcal Unknown 08/04/2015 completed Influenza CVX: 141 04/16/2014 completed Pneumococcal CVX: 33 05/15/2008 completed Assessments Condition Codes Effective Dates Encounter for general adult medical examination with abnormal findings ICD-10: Z00.01 ICD-9: V70.0 08/10/2018 Vertigo of central origin, right ear ICD-10: H81.41 ICD-9: 386.2 07/26/2018 Dizziness and giddiness ICD-10: R42 ICD-9: [...] loss, bilateral ICD-10: H90.3 ICD-9: 389.11 03/27/2018 Essential (primary) hypertension ICD-10: I10 ICD-9: 401.9 01/25/2018 Mixed hyperlipidemia ICD-10: E78.2 ICD-9: 272.2 01/24/2018 [...] Visit Reason For Visit Effective Dates Notes Annual Medicare Wellness Exam 08/10/2018 fatigue 07/26/2018 [...] U-VOL VOLUME SUFFICIENT (10mL) 07/14/2018 Urinalysis Ord28 U-Yeast NEGATIVE 07/14/2018 Urinalysis Ord28 U-Com Urine saved if culture needed (specimen acceptable for 48 hours from collection if refrigerated) 07/14/2018 Cbc With Differential Ord2 WBC 5.50 K/ul 07/14/2018 Cbc With Differential Ord2 RBC 4.76 M/ul 07/14/2018 Cbc With Differential Ord2 HGB 13.8 g/dl 07/14/2018 Cbc With Differential Ord2 Neut% 53.0 % 07/14/2018 Cbc With Differential Ord2 HCT 42.4 % 07/14/2018 Cbc With Differential Ord2 Lymph% 34.9 % 07/14/2018 Cbc With Differential Ord2 MCV 89.1 fl 07/14/2018 Cbc With Differential Ord2 [place]% 7.5 % 07/14/2018 Cbc With Differential Ord2 MCH 29.0 pg 07/14/2018 Cbc With Differential Ord2 MCHC 32.5 pg 07/14/2018 Cbc With Differential Ord2 Eos% 4.2 % 07/14/2018 Cbc With Differential Ord2 Baso% 0.4 % 07/14/2018 Cbc With Differential Ord2 PLT 205 K/ul 07/14/2018 Cbc With Differential Ord2 RDW 14.5 % 07/14/2018 Cbc With Differential Ord2 Neut ABS# 2.92 K/ul 07/14/2018 Cbc With Differential Ord2 Lymph ABS# 1.92 K/ul 07/14/2018 Cbc With Differential Ord2 [place] ABS# 0.4 K/ul 07/14/2018 Cbc With Differential Ord2 Eos ABS# 0.2 K/ul 07/14/2018 Cbc With Differential Ord2 Baso ABS# 0.0 K/ul 07/14/2018 Renal Elp211 NA 140 mEq/L 07/14/2018 Renal Ssm566 K 4.2 mEq/L 07/14/2018 Renal Faj748 CL 103 mEq/L 07/14/2018 Renal Pcf935 CO2 29.0 mEq/L 07/14/2018 Renal Lcw804 ANION GAP 12 07/14/2018 Renal Ifw420 Osmo 280 mOsmo 07/14/2018 Renal Vql237 GLUCOSE 95 mg/dL 07/14/2018 Renal Urf120 BUN 15 mg/dL 07/14/2018 Renal Emq035 Creat 1.2 mg/dL 07/14/2018 Renal Fbz774 eGFR 64 ml/min/1.73m2 07/14/2018 Renal Hvs061 B/C Ratio 12.8 Ratio 07/14/2018 Renal Dca739 CALCIUM 9.6 mg/dL 07/14/2018 Renal Ypf191 PHOS 3.2 mg/dL 07/14/2018 Renal Mlq022 ALBUMIN 4.4 g/dL 07/14/2018 Comp Metabolic Uvq623 NA 139 mEq/L 06/08/2018 Comp Metabolic Hjg965 K 4.6 mEq/L 06/08/2018 Comp Metabolic Bsj799 CL 105 mEq/L 06/08/2018 Comp Metabolic Bxl855 CO2 26.0 mEq/L 06/08/2018 Comp Metabolic Cmj266 ANION GAP 13 06/08/2018 Comp Metabolic Pth287 GLUCOSE 95 mg/dL 06/08/2018 Comp Metabolic Ylo636 Creat 1.2 mg/dL 06/08/2018 Comp Metabolic Wax434 eGFR 59 ml/min/1.73m2 06/08/2018 Comp Metabolic Cxj896 BUN 12 mg/dL 06/08/2018 Comp Metabolic Zqa939 B/C Ratio 9.7 Ratio 06/08/2018 Comp Metabolic Elb281 CALCIUM 9.9 mg/dL 06/08/2018 Comp Metabolic Fzi123 ALK PHOS 70 U/L 06/08/2018 Comp Metabolic Vup031 AST(SGOT) 21 U/L 06/08/2018 Comp Metabolic Jxz020 ALT(SGPT) 20 U/L 06/08/2018 Comp Metabolic Fwo443 BILI T 1.0 mg/dL 06/08/2018 Comp Metabolic Wnj172 ALBUMIN 4.5 g/dL 06/08/2018 Comp Metabolic Kak845 TPRO 7.2 g/dL 06/08/2018 Comp Metabolic Ire282 GLOB 2.8 g/dL 06/08/2018 Comp Metabolic Rgm196 A/G Ratio 1.6 Ratio 06/08/2018 Comp Metabolic Aep319 Osmo 277 mOsmo 06/08/2018 Cbc With Differential Ord2 WBC 6.19 K/ul 06/08/2018 Cbc With Differential Ord2 RBC 4.31 M/ul 06/08/2018 Cbc With Differential Ord2 HGB 12.8 g/dl 06/08/2018 Cbc With Differential Ord2 HCT 38.9 % 06/08/2018 Cbc With Differential Ord2 Neut% 53.9 % 06/08/2018 Cbc With Differential Ord2 Lymph% 34.6 % 06/08/2018 Cbc With Differential Ord2 MCV 90.3 fl 06/08/2018 Cbc With Differential Ord2 MCH 29.7 pg 06/08/2018 Cbc With Differential Ord2 [place]% 8.7 % 06/08/2018 Cbc With Differential Ord2 [...] 2.14 K/ul 06/08/2018 Cbc With Differential Ord2 [place] ABS# 0.5 K/ul 06/08/2018 Cbc With Differential Ord2 Eos ABS# 0.2 K/ul 06/08/2018 Cbc With Differential Ord2 Baso ABS# 0.0 K/ul 06/08/2018 Magnesium Ord90 Mag 1.9 mg/dL 06/08/2018 Cbc With Differential Ord2 WBC 5.58 K/ul 05/10/2018 Cbc With Differential Ord2 RBC 3.43 M/ul 05/10/2018 Cbc With Differential Ord2 HGB 10.5 g/dl 05/10/2018 Cbc With Differential Ord2 Neut% 55.1 % 05/10/2018 Cbc With Differential Ord2 HCT 31.1 % 05/10/2018 Cbc With Differential Ord2 MCV 90.7 fl 05/10/2018 Cbc With Differential Ord2 Lymph% 34.8 % 05/10/2018 Cbc With Differential Ord2 [place]% 6.5 % 05/10/2018 Cbc With Differential Ord2 MCH 30.6 pg 05/10/2018 Cbc With Differential Ord2 Eos% 3.2 % 05/10/2018 Cbc With Differential Ord2 MCHC 33.8 pg 05/10/2018 Cbc With Differential Ord2 PLT 330 K/ul 05/10/2018 Cbc With Differential Ord2 Baso% 0.4 % 05/10/2018 Cbc With Differential Ord2 RDW 14.5 % 05/10/2018 Cbc With Differential Ord2 Neut ABS# 3.08 K/ul 05/10/2018 Cbc With Differential Ord2 Lymph ABS# 1.94 K/ul 05/10/2018 Cbc With Differential Ord2 [place] ABS# 0.4 K/ul 05/10/2018 Cbc With Differential [...] 05/10/2018 Metabolic Ord15 CALCIUM 8.9 mg/dL 05/10/2018 Tsh Ord6 TSH (3rd IS) 1.81 uIU/mL 01/26/2018 Testosterone Jsg521 Testo 370.3 ng/dL 01/26/2018 Comp Metabolic Swh789 NA 138 mEq/L 01/26/2018 Comp Metabolic Ema014 K 4.2 mEq/L 01/26/2018 Comp Metabolic Fay466 CL 105 mEq/L 01/26/2018 Comp Metabolic Lbp905 CO2 23.0 mEq/L 01/26/2018 Comp Metabolic Cfv009 ANION GAP 14 01/26/2018 Comp Metabolic Svr597 GLUCOSE 89 mg/dL 01/26/2018 Comp Metabolic Mfh226 Creat 1.1 mg/dL 01/26/2018 Comp Metabolic Nlg702 eGFR 70 ml/min/1.73m2 01/26/2018 Comp Metabolic Wsw235 BUN 18 mg/dL 01/26/2018 Comp Metabolic Ibb660 B/C Ratio 16.8 Ratio 01/26/2018 Comp Metabolic Joz207 CALCIUM 9.2 mg/dL 01/26/2018 Comp Metabolic Msx070 ALK PHOS 67 U/L 01/26/2018 Comp Metabolic Sxn890 AST(SGOT) 31 U/L 01/26/2018 Comp Metabolic Hvx796 ALT(SGPT) 23 U/L 01/26/2018 Comp Metabolic Lmw506 BILI T 1.7 mg/dL 01/26/2018 Comp Metabolic Tmi659 ALBUMIN 3.9 g/dL 01/26/2018 Comp Metabolic Tdf103 TPRO 6.7 g/dL 01/26/2018 Comp Metabolic Ckq490 GLOB 2.8 g/dL 01/26/2018 Comp Metabolic Ndz202 A/G Ratio 1.4 Ratio 01/26/2018 Comp Metabolic Qjb646 Osmo 277 mOsmo 01/26/2018 Total Psa Ord10 PSA 0.92 ng/mL 01/26/2018 Cbc With Differential Ord2 WBC 6.64 K/ul 01/26/2018 Cbc With Differential Ord2 RBC 4.75 M/ul 01/26/2018 Cbc With Differential Ord2 HGB 14.6 g/dl 01/26/2018 Cbc With Differential Ord2 Neut% 54.3 % 01/26/2018 Cbc With Differential Ord2 HCT 43.1 % 01/26/2018 Cbc With Differential Ord2 Lymph% 36.1 % 01/26/2018 Cbc With Differential Ord2 MCV 90.7 fl 01/26/2018 Cbc With Differential Ord2 [place]% 7.1 % 01/26/2018 Cbc With Differential Ord2 MCH 30.7 pg 01/26/2018 Cbc With Differential Ord2 Eos% 2.3 % 01/26/2018 Cbc With Differential Ord2 MCHC 33.9 pg 01/26/2018 Cbc With Differential Ord2 Baso% 0.2 % 01/26/2018 Cbc With Differential Ord2 PLT 217 K/ul 01/26/2018 Cbc With Differential Ord2 Neut ABS# 3.61 K/ul 01/26/2018 Cbc With Differential Ord2 RDW 15.1 % 01/26/2018 Cbc With Differential Ord2 Lymph ABS# 2.40 K/ul 01/26/2018 Cbc With Differential Ord2 [place] ABS# 0.5 K/ul 01/26/2018 Cbc With Differential Ord2 Eos ABS# 0.2 K/ul 01/26/2018 Cbc With Differential Ord2 Baso ABS# 0.0 K/ul 01/26/2018 Lipid Ord30 CHOL 161 mg/dL 01/26/2018 Lipid Ord30 HDL 38.0 mg/dl 01/26/2018 Lipid Ord30 TRIG 131 mg/dL 01/26/2018 Lipid Ord30 LDL 97 mg/dL 01/26/2018 Lipid Ord30 C/HDL 4.2 Ratio 01/26/2018 C A/B FLU [id number] Influenza A Scr Negative 12/08/2017 C A/B FLU [id number] Influenza B Scr Negative 12/08/2017 C A/B FLU [id number] Influenza Intrp B AG: PRID:PT:NOSE:NOM:IF See Footnote [...] 89.6 fl 04/11/2017 Cbc With Differential Ord2 MCH 30.8 pg 04/11/2017 Cbc With Differential Ord2 [place]% 8.1 % 04/11/2017 Cbc With Differential Ord2 Eos% 3.0 % 04/11/2017 Cbc With Differential Ord2 MCHC 34.4 pg 04/11/2017 Cbc With Differential Ord2 Baso% 0.2 % 04/11/2017 Cbc With Differential Ord2 PLT 183 K/ul 04/11/2017 Cbc With Differential Ord2 Neut ABS# 3.69 K/ul 04/11/2017 Cbc With Differential Ord2 RDW 15.3 % 04/11/2017 Cbc With Differential Ord2 Lymph ABS# 1.91 K/ul 04/11/2017 Cbc With Differential Ord2 [place] ABS# 0.5 K/ul 04/11/2017 Cbc With Differential Ord2 Eos ABS# 0.2 K/ul 04/11/2017 Cbc With Differential Ord2 Baso ABS# 0.0 K/ul 04/11/2017 Comp Metabolic Ndb204 NA 140 mEq/L 04/11/2017 Comp Metabolic Ptm931 K 4.1 mEq/L 04/11/2017 Comp Metabolic Iim636 CL 105 mEq/L 04/11/2017 Comp Metabolic Aot404 CO2 26.0 mEq/L 04/11/2017 Comp Metabolic Biq686 ANION GAP 13 04/11/2017 Comp Metabolic Ruu070 GLUCOSE 88 mg/dL 04/11/2017 Comp Metabolic Vpa072 Creat 1.1 mg/dL 04/11/2017 Comp Metabolic Dzy593 eGFR 66 ml/min/1.73m2 04/11/2017 Comp Metabolic Kyb400 BUN 18 mg/dL 04/11/2017 Comp Metabolic Qen808 B/C Ratio 15.9 Ratio 04/11/2017 Comp Metabolic Kis212 CALCIUM 9.0 mg/dL 04/11/2017 Comp Metabolic Sdw147 ALK PHOS 72 U/L 04/11/2017 Comp Metabolic Vyx712 AST(SGOT) 22 U/L 04/11/2017 Comp Metabolic Bpv412 ALT(SGPT) 26 U/L 04/11/2017 Comp Metabolic Hrv772 BILI T 1.0 mg/dL 04/11/2017 Comp Metabolic Jac810 ALBUMIN 4.0 g/dL 04/11/2017 Comp Metabolic Fqv607 TPRO 6.4 g/dL 04/11/2017 Comp Metabolic Lxf529 GLOB 2.4 g/dL 04/11/2017 Comp Metabolic Vzt443 A/G Ratio 1.6 Ratio 04/11/2017 Comp Metabolic Mja568 Osmo 281 mOsmo 04/11/2017 Vitamin D 25 Oh [id number] VITAMIN D, 25 HYDROXY 65.52 ng/mL Urinalysis Ord28 U-Color Yellow 05/18/2016 Urinalysis Ord28 [...] 48 hours from collection if refrigerated) 05/18/2016 Cbc With Differential Ord2 WBC 5.81 K/ul [...] 28.5 pg 05/18/2016 Cbc With Differential Ord2 [place]% 7.2 % 05/18/2016 Cbc With Differential Ord2 Eos% 3.1 % 05/18/2016 Cbc With Differential Ord2 MCHC 33.5 pg 05/18/2016 Cbc With Differential Ord2 PLT 222 K/ul 05/18/2016 Cbc With Differential Ord2 Baso% 0.2 % 05/18/2016 Cbc With Differential Ord2 Neut ABS# 3.40 K/ul 05/18/2016 Cbc With Differential Ord2 RDW 15.8 % 05/18/2016 Cbc With Differential Ord2 Lymph ABS# 1.80 K/ul 05/18/2016 Cbc With Differential Ord2 [place] ABS# 0.4 K/ul 05/18/2016 Cbc With Differential Ord2 Eos ABS# 0.2 K/ul 05/18/2016 Cbc With Differential Ord2 Baso ABS# 0.0 K/ul 05/18/2016 Random Urine Protein/Creatinine Ratio Xin3948 U Prot 15.0 mg/dl 05/18/2016 Random Urine Protein/Creatinine Ratio Oqg8569 U CREAT 141.0 mg/dL 05/18/2016 Random Urine Protein/Creatinine Ratio Ajz9356 R MTP/Creat Ratio 0.11 05/18/2016 Renal Shm773 NA 139 mEq/L 05/18/2016 Renal Haf806 K 4.0 mEq/L 05/18/2016 Renal Qps868 CL 104 mEq/L 05/18/2016 Renal Gut263 CO2 27.0 mEq/L 05/18/2016 Renal Rms494 ANION GAP 12 05/18/2016 Renal Vyn638 Osmo 279 mOsmo 05/18/2016 Renal Gpx656 GLUCOSE 91 mg/dL 05/18/2016 Renal Ufd983 BUN 18 mg/dL 05/18/2016 Renal Uvn888 Creat 1.3 mg/dL 05/18/2016 Renal Sga884 eGFR 59 ml/min/1.73m2 05/18/2016 Renal Vif181 B/C Ratio 14.3 Ratio 05/18/2016 Renal Tpd980 CALCIUM 9.3 mg/dL 05/18/2016 Renal Tqb641 PHOS 3.2 mg/dL 05/18/2016 Renal Srv365 ALBUMIN 4.2 g/dL 05/18/2016 Magnesium Ord90 Mag 2.0 mg/dL 05/18/2016 Comp Metabolic Mot339 NA 138 mEq/L 02/19/2016 Comp Metabolic Bme115 K 3.8 mEq/L 02/19/2016 Comp Metabolic Xxb864 CL 103 mEq/L 02/19/2016 Comp Metabolic Qgx944 CO2 28.0 mEq/L 02/19/2016 Comp Metabolic Dsp481 ANION GAP 11 02/19/2016 Comp Metabolic Bsj577 GLUCOSE 94 mg/dL 02/19/2016 Comp Metabolic Ool489 Creat 1.0 mg/dL 02/19/2016 Comp Metabolic Udd014 eGFR 75 ml/min/1.73m2 02/19/2016 Comp Metabolic Piv855 BUN 18 mg/dL 02/19/2016 Comp Metabolic Zhi628 B/C Ratio 17.6 Ratio 02/19/2016 Comp Metabolic Flx445 CALCIUM 9.6 mg/dL 02/19/2016 Comp Metabolic Dup418 ALK PHOS 93 U/L 02/19/2016 Comp Metabolic Pdp620 AST(SGOT) 23 U/L 02/19/2016 Comp Metabolic Rjb668 ALT(SGPT) 19 U/L 02/19/2016 Comp Metabolic Pcy085 BILI T 0.8 mg/dL 02/19/2016 Comp Metabolic Ztx467 ALBUMIN 4.1 g/dL 02/19/2016 Comp Metabolic Frj178 TPRO 6.8 g/dL 02/19/2016 Comp Metabolic Bii030 GLOB 2.7 g/dL 02/19/2016 Comp Metabolic Sgo973 A/G Ratio 1.5 Ratio 02/19/2016 Comp Metabolic Qgz017 Osmo 277 mOsmo 02/19/2016 Cbc With Differential Ord2 WBC 5.47 K/ul 02/19/2016 Cbc With Differential Ord2 RBC 4.71 M/ul 02/19/2016 Cbc With Differential Ord2 HGB 13.4 g/dl 02/19/2016 Cbc With Differential Ord2 HCT 40.4 % 02/19/2016 Cbc With Differential Ord2 Neut% 51.9 % 02/19/2016 Cbc With Differential Ord2 Lymph% 34.9 % 02/19/2016 Cbc With Differential Ord2 MCV 85.8 fl 02/19/2016 Cbc With Differential Ord2 MCH 28.5 pg 02/19/2016 Cbc With Differential Ord2 [place]% 9.5 % 02/19/2016 Cbc With Differential Ord2 [...] 1.91 K/ul 02/19/2016 Cbc With Differential Ord2 [place] ABS# 0.5 K/ul 02/19/2016 Cbc With Differential Ord2 Eos ABS# 0.2 K/ul 02/19/2016 Cbc With Differential Ord2 Baso ABS# 0.0 K/ul 02/19/2016 Cbc With Differential Ord2 New Analyzer Notice Please note new ref ranges starting 10-29-2015 due to implemntation of new five part differential hematolgy analyzer. 02/19/2016 Tsh Ord6 hTSH II 2.10 uIU/mL 02/19/2016 Total Psa Ord10 PSA 0.82 ng/mL 02/19/2016 Lipid Ord30 CHOL 157 mg/dL 02/19/2016 Lipid Ord30 HDL 37.0 mg/dl 02/19/2016 Lipid Ord30 TRIG 150 mg/dL 02/19/2016 Lipid Ord30 LDL 90 mg/dL 02/19/2016 Lipid Ord30 C/HDL 4.2 Ratio 02/19/2016 Uric Acid Ord77 Uric A 6.0 mg/dL 02/19/2016 Comp Metabolic Uzm010 NA 140 mEq/L 12/16/2015 Comp Metabolic Beq645 K 4.0 mEq/L 12/16/2015 Comp Metabolic Phl553 CL 105 mEq/L 12/16/2015 Comp Metabolic Omj595 CO2 24.0 mEq/L 12/16/2015 Comp Metabolic Jba254 ANION GAP 15 12/16/2015 Comp Metabolic Kru801 GLUCOSE 85 mg/dL 12/16/2015 Comp Metabolic Vhl622 Creat 1.2 mg/dL 12/16/2015 Comp Metabolic Acw460 eGFR 65 ml/min/1.73m2 12/16/2015 Comp Metabolic Kwl345 BUN 14 mg/dL 12/16/2015 Comp Metabolic Ihi143 B/C Ratio 12.1 Ratio 12/16/2015 Comp Metabolic Kgv106 CALCIUM 9.1 mg/dL 12/16/2015 Comp Metabolic Brp116 ALK PHOS 162 U/L 12/16/2015 Comp Metabolic Pmx831 AST(SGOT) 14 U/L 12/16/2015 Comp Metabolic Wkr133 ALT(SGPT) 17 U/L 12/16/2015 Comp Metabolic Arg898 BILI T 1.0 mg/dL 12/16/2015 Comp Metabolic Hoe516 ALBUMIN 3.4 g/dL 12/16/2015 Comp Metabolic Pfh008 TPRO 6.2 g/dL 12/16/2015 Comp Metabolic Dxn300 GLOB 2.9 g/dL 12/16/2015 Comp Metabolic Ukw500 A/G Ratio 1.2 Ratio 12/16/2015 Comp Metabolic Ire295 Osmo 279 mOsmo 12/16/2015 Uric Acid Ord77 Uric A 6.1 mg/dL 12/16/2015 Cbc With Differential Ord2 WBC 5.08 K/ul 12/16/2015 Cbc With Differential Ord2 RBC 3.91 M/ul 12/16/2015 Cbc With Differential Ord2 HGB 11.0 g/dl 12/16/2015 Cbc With Differential Ord2 Neut% 59.3 % 12/16/2015 Cbc With Differential Ord2 HCT 34.8 % 12/16/2015 Cbc With Differential Ord2 Lymph% 29.9 % 12/16/2015 Cbc With Differential Ord2 MCV 89.0 fl 12/16/2015 Cbc With Differential Ord2 MCH 28.1 pg 12/16/2015 Cbc With Differential Ord2 [place]% 7.5 % 12/16/2015 Cbc With Differential Ord2 Eos% 3.1 % 12/16/2015 Cbc With Differential Ord2 MCHC 31.6 pg 12/16/2015 Cbc With Differential Ord2 PLT 231 K/ul 12/16/2015 Cbc With Differential Ord2 Baso% 0.2 % 12/16/2015 Cbc With Differential Ord2 Neut ABS# 3.01 K/ul 12/16/2015 Cbc With Differential Ord2 RDW 14.7 % 12/16/2015 Cbc With Differential Ord2 Lymph ABS# 1.52 K/ul 12/16/2015 Cbc With Differential Ord2 [place] ABS# 0.4 K/ul 12/16/2015 Cbc With Differential [...] 07/21/2015 Lipid Ord30 C/HDL 4.0 Ratio 07/21/2015 Total Volume Urine Xzb359 TV/24hr 1400 ml 05/16/2015 Urine Protein 24Hr Opj480 U Prot 5.1 mg/dl 05/16/2015 Urine Protein 24Hr Sww439 U Prot24 71.5 mg/24hr 05/16/2015 Cbc With Differential Ord2 WBC 5.1 K/uL [...] With Differential Ord2 RDW 15.4 % 05/15/2015 Renal Lch296 NA 135 mEq/L 05/15/2015 Renal Tef994 K 3.9 mEq/L 05/15/2015 Renal Vwf253 CL 101 mEq/L 05/15/2015 Renal Kds303 CO2 27.0 mEq/L 05/15/2015 Renal Baq662 ANION GAP 11 05/15/2015 Renal Xzm429 Osmo 274 mOsmo 05/15/2015 Renal Gca261 GLUCOSE 132 mg/dL 05/15/2015 Renal Aer560 BUN 19 mg/dL 05/15/2015 Renal Wxk947 Creat 1.1 mg/dL 05/15/2015 Renal Aua158 eGFR 67 ml/min/1.73m2 05/15/2015 Renal Lax027 B/C Ratio 17.0 Ratio 05/15/2015 Renal Fjr821 CALCIUM 9.6 mg/dL 05/15/2015 Renal Kpn762 PHOS 3.0 mg/dL 05/15/2015 Renal Xhj823 ALBUMIN 4.3 g/dL 05/15/2015 Total Psa Ord10 PSA 0.70 ng/mL 05/15/2015 Review of Systems System Result Effective Dates Constitutional No recent illness 2017 Constitutional No [...] lips 10/26/2016 None Full Exam - General 1995 Ears/Nose/Throat lips/teeth/gingiva Overall: normal dentition 10/26/2016 None [...] Formatting Model/CDA Sections, Assigned to/Sharee Ramirez CPT-4: 43142Tidizgc 07/05/2018 THER/PROPH/DIAG INJ SC/IM CPT-4: 82386 06/12/2018 TRIAMCINOLONE ACET INJ NOS CPT-4: J3301 06/12/2018 PPPS, SUBSEQ VISIT CPT -4: G0439 08/03/2017 ADMIN INFLUENZA VIRUS VAC CPT-4: G0008 06/28/2016 FLU VACC PRSV FREE INC ANTIG CPT-4: 91826 06/28/2016 TENIVAC TD VACCINE NO PRSRV 7/> IM CPT-4: 56145 06/28/2016 OCCULT BLOOD FECES CPT -4: 45638 02/19/2015 Vital Signs Date Vital 08/10/2018 BMI: 29.4 Code: 70017-4 Height: 6' Weight: 217 lbs 07/26/2018 Blood Pressure 1: 116/72 Code : 8480-6 BMI: 29.4 Code : 83089-6 Heart Rate 1 : 102 bpm Height: 6' SpO2: 96% Weight: 217 lbs 07/05/2018 Blood Pressure 1: 132/72 Code : 8480-6 Heart Rate 1: 60 bpm SpO2: 95% 06/12/2018 Blood Pressure 1: 120/78 Code : 8480-6 BMI: 29.6 Code : 87583-2 Heart Rate 1 : 103 bpm Height: 6' SpO2: 96% Weight: 218 lbs 05/10/2018 Blood Pressure 1: 114/68 Code : 8480-6 BMI: 29.4 Code : 64143-8 Heart Rate 1 : 92 bpm Height: 6' SpO2: 97% Weight: 217 lbs 03/27/2018 Blood Pressure 1: 126/74 Code : 8480-6 BMI: 30.1 Code : 97364-5 Heart Rate 1 : 103 bpm Height: 6' SpO2: 96% Weight: 222 lbs 01/25/2018 Blood Pressure 1: 122/70 Code : 8480-6 Blood Pressure 2: 126/73 Code: 8480-6 Heart Rate 1: 63 bpm SpO2: 94% 01/24/2018 Blood Pressure 1: 110/72 Code : 8480-6 BMI: 29.7 Code : 56403-6 Heart Rate 1 : 88 bpm Height: 6' SpO2: 95% Weight: 219 lbs 12/08/2017 Blood Pressure 1: 120/68 Code : 8480-6 BMI: 30.0 Code : 46580-3 Heart Rate 1 : 91 bpm Height: 6' SpO2: 96% Temperature: 36.7 (C) / 98.1 (F) Weight: 221 lbs 10/27/2017 Blood Pressure 1: 124/76 Code : 8480-6 BMI: 30.1 Code : 09777-0 Heart Rate 1 : 69 bpm Height: 6' SpO2: 95% Weight: 222 lbs 09/29/2017 Blood Pressure 1: 118/66 Code : 8480-6 BMI: 29.9 Code : 33049-5 Heart Rate 1 : 81 bpm Height: 6' SpO2: 95% Weight: 220 lbs 8 oz 09/01/2017 Blood Pressure 1: 122/82 Code : 8480-6 BMI: 29.6 Code : 33314-3 Heart Rate 1 : 75 bpm Height: 6' SpO2: 97% Weight: 218 lbs 08/03/2017 Blood Pressure 1: 120/68 Code : 8480-6 Heart Rate 1: 68 bpm Height: 6' SpO2: 94% Waist Measure (cm): 97 cm 04/26/2017 Blood Pressure 1: 122/72 Code : 8480-6 BMI: 29.4 Code : 09476-1 Heart Rate 1 : 85 bpm Height: 6' SpO2: 92% Weight: 217 lbs 01/25/2017 Blood Pressure 1: 118/78 Code : 8480-6 BMI: 29.4 Code : 29137-9 Heart Rate 1 : 72 bpm Height: 6' SpO2: 94% Temperature: 36.9 (C) / 98.5 (F) Weight: 217 lbs 10/26/2016 Blood Pressure 1: 152/86 Code : 8480-6 BMI: 29.7 Code : 53930-7 Heart Rate 1 : 58 bpm Height: 6' Weight: 219 lbs 09/27/2016 Blood Pressure 1: 138/80 Code : 8480-6 BMI: 29.4 Code : 31780-0 Heart Rate 1 : 52 bpm Height: 6' SpO2: 98% Weight: 217 lbs 06/28/2016 Blood Pressure 1: 128/86 Code : 8480-6 BMI: 29.6 Code : 29427-0 Heart Rate 1 : 69 bpm Height: 6' SpO2: 93% Weight: 218 lbs 04/27/2016 Blood Pressure 1: 118/82 Code : 8480-6 BMI: 29.3 Code : 99508-2 Heart Rate 1 : 85 bpm Height: 6' SpO2: 98% Weight: 216 lbs 02/17/2016 Blood Pressure 1: 132/80 Code : 8480-6 BMI: 28.8 Code : 15221-5 Heart Rate 1 : 94 bpm Height: 6' SpO2: 98% Weight: 212 lbs 01/20/2016 Blood Pressure 1: 120/70 Code : 8480-6 BMI: 29.7 Code : 76092-1 Heart Rate 1 : 87 bpm Height: 6' SpO2: 92% Weight: 219 lbs 01/06/2016 Blood Pressure 1: 122/88 Code : 8480-6 BMI: 28.8 Code : 23509-5 Heart Rate 1 : 83 bpm Height: [...] Code : 8480-6 BMI: 30.5 Code : 50149-7 Heart Rate 1 : 82 bpm Height: 6' SpO2: 92% Weight: 225 lbs 06/09/2015 Blood Pressure 1: 130/76 Code : 8480-6 BMI: 31.1 Code : 90310-6 Heart Rate 1 : 65 bpm Height: 6' SpO2: 96% Weight: 229 lbs 04/29/2015 Blood Pressure 1: 118/78 Code : 8480-6 BMI: 30.7 Code : 38711-1 Heart Rate 1 : 70 bpm Height: 6' Weight: 226 lbs 02/19/2015 Blood Pressure 1: 118/70 Code : 8480-6 BMI: 29.7 Code : 24785-2 Heart Rate 1 : 68 bpm Height: 6' Weight: 219 lbs Functional Status No Functional Status data History of Present Illness Symptom Name Status Result Effective Date Notes Annual Medicare Wellness Exam Alcohol Use drinks [...] data Encounters Encounter Performer Location Codes Date ([id number]) 64414 EST. PATIENT, LEVEL III Diagnosis: Dizziness and giddiness[ICD10: R42] Diagnosis: Vertigo of central origin, right ear[ICD10: H81.41] Diagnosis: Essential (primary) hypertension[ICD10: I10] Lesley Butcher MD, [facility] CPT-4: 36822 07/26/2018 ([id number]) 05638 EST. PATIENT, LEVEL III Diagnosis: Essential (primary) hypertension[ICD10: I10] Lesley Butcher MD, [facility] CPT-4: 96658 06/12/2018 ([id number]) 01986 EST. PATIENT, LEVEL IV Diagnosis: Other iron deficiency anemias[ICD10: D50.8] Diagnosis: Weakness[ICD10: R53.1] Diagnosis: Diverticulosis of large intestine without perforation or abscess with bleeding[ICD10: K57.31] Lesley Butcher MD, [facility] CPT-4: 09945 05/10/2018 ([id number]) 40449 EST. PATIENT, LEVEL IV Diagnosis: Essential (primary) hypertension[ICD10: I10] Diagnosis: Major depressive disorder, recurrent, mild[ICD10: F33.0] Diagnosis: Sensorineural hearing loss, bilateral[ICD10: H90.3] Lesley Butcher MD, [facility] CPT-4: 79142 03/27/2018 ([id number]) Miscellaneous no charge Diagnosis: Essential (primary) hypertension[ICD10: I10] Mady Butcher MD, [facility] CPT-4: 56639 01/25/2018 ([id number]) 59718 EST. PATIENT, LEVEL IV Diagnosis: Essential (primary) hypertension[ICD10: I10] Diagnosis: Sensorineural hearing loss, bilateral[ICD10: H90.3] Diagnosis: Mixed hyperlipidemia[ICD10: E78.2] Diagnosis: Major depressive disorder, recurrent, mild[ICD10: F33.0] Lesley Butcher MD, [facility] CPT-4: 56618 01/24/2018 02576 EST. PATIENT, LEVEL IV Diagnosis: Other malaise[ICD10: R53.81] Diagnosis: Fever, unspecified[ICD10: R50.9] Mady Butcher MD, [facility] CPT- 4: 13022 12/08/2017 ([id number]) 32668 EST. PATIENT, LEVEL III Diagnosis: Essential (primary) hypertension[ICD10: I10] Lesley Butcher MD, [facility] CPT-4: 91833 10/27/2017 ([id number]) 35073 EST. PATIENT, LEVEL III Diagnosis: Benign prostatic hyperplasia with lower urinary tract symptoms[ICD10 : N40.1] Diagnosis: Dysphagia, pharyngeal phase[ICD10: R13.13] Lesley Butcher MD, [facility] CPT-4: 98777 09/29/2017 ([id number]) 67117 EST. PATIENT, LEVEL IV Diagnosis: Essential (primary) hypertension[ICD10: I10] Diagnosis: Major depressive disorder, recurrent, mild[ICD10: F33.0] Diagnosis: Sensorineural hearing loss, bilateral[ICD10: H90.3] Lesley Butcher MD, [facility] CPT-4: 08035 09/01/2017 ([id number]) 41607 EST. PATIENT, LEVEL IV Diagnosis: Essential (primary) hypertension[ICD10: I10] Diagnosis: Major depressive disorder, recurrent, mild[ICD10: F33.0] Diagnosis: Mixed hyperlipidemia[ICD10: E78.2] Lesley Butcher MD, [facility] CPT-4: 50444 04/26/2017 ([id number]) 83919 EST. PATIENT, LEVEL IV Diagnosis: Essential (primary) hypertension[ICD10: I10] Diagnosis: Major depressive disorder, recurrent, mild[ICD10: F33.0] Diagnosis: Urge incontinence[ICD10: N39.41] Lesley Butcher MD, [facility] CPT-4: 22257 01/25/2017 ([id number]) 73754 EST. PATIENT, LEVEL IV Diagnosis: Essential (primary) hypertension[ICD10: I10] Diagnosis: Major depressive disorder, recurrent, mild[ICD10: F33.0] Diagnosis: Urge incontinence[ICD10: N39.41] Lesley Butcher MD, [facility] CPT-4: 09396 10/26/2016 ([id number]) 00278 EST. PATIENT, LEVEL III Diagnosis: Essential (primary) hypertension[ICD10: I10] Diagnosis: Major depressive disorder, recurrent, mild[ICD10: F33.0] Diagnosis: Urge incontinence[ICD10: N39.41] Lesley Butcher MD, [facility] CPT-4: 09834 09/27/2016 ([id number]) 61266 EST. PATIENT, LEVEL IV Diagnosis: Essential (primary) hypertension[ICD10: I10] Diagnosis: Encounter for immunization[ICD10: Z23] Diagnosis: Laceration without foreign body of left forearm, initial encounter[ ICD10: S51.812A] Diagnosis: Laceration without foreign body of right forearm, initial encounter[ ICD10: S51.811A] Diagnosis: Major depressive disorder, recurrent, mild[ICD10: F33.0] Lesley Butcher MD, [facility] CPT-4: 98073 06/28/2016 ([id number]) 18340 EST. PATIENT, LEVEL IV Diagnosis: Essential (primary) hypertension[ICD10: I10] Diagnosis: Idiopathic gout, left ankle and foot[ICD10: M10.072] Diagnosis: Other iron deficiency anemias[ICD10: D50.8] Lesley Butcher MD, [facility] CPT-4: 44745 04/27/2016 [id number]) 47076 EST. PATIENT, LEVEL V Diagnosis: Essential (primary) hypertension[ICD10: I10] Diagnosis: Major depressive disorder, recurrent, mild[ICD10: F33.0] Diagnosis: Idiopathic gout, left ankle and foot[ICD10: M10.072] Diagnosis: Mixed hyperlipidemia[ICD10: E78.2] Lesley Butcher MD, [facility] CPT-4: 56609 02/17/2016 ([id number]) 20370 EST. PATIENT, LEVEL IV Diagnosis: Idiopathic gout, left ankle and foot[ICD10: M10.072] Diagnosis: Major depressive disorder, single episode, unspecified[ICD10: F32.9] Diagnosis: Localized edema[ICD10: R60.0] Merline Butcher MD, [facility] CPT-4: 80187 01/20/2016 [id number] EST. PATIENT, LEVEL IV Diagnosis: Idiopathic gout, left ankle and foot[ICD10: M10.072] Diagnosis: Essential (primary) hypertension[ICD10: I10] Diagnosis: Major depressive disorder, single episode, unspecified[ICD10: F32.9] Lesley Butcher MD, [facility] CPT-4: 07042 01/06/2016 68211 EST. PATIENT, LEVEL IV Diagnosis: Weakness[ICD10: R53.1] Diagnosis: Gout, unspecified[ICD10: M10.9] Diagnosis: Hypotension, unspecified[ICD10: I95.9] Lesley Butcher MD, [facility] CPT-4: 08913 12/16/2015 ([id number]) Patient admitted to the hospital from clinic (NO CHARGE) Diagnosis: Hypoxemia[ICD10: R09.02] Diagnosis: Weakness[ICD10: R53.1] Diagnosis: Dyspnea, unspecified[ICD10: R06.00] Mady Butcher MD, [facility] CPT-4: 00230J 11/27/2015 ([id number]) 87124 EST. PATIENT, LEVEL III Diagnosis: Essential (primary) hypertension[ICD10: I10] Diagnosis: Gastro-esophageal reflux disease without esophagitis[ICD10: K21.9] Lesley Butcher MD, [facility] CPT-4: 06873 07/30/2015 ([id number]) 03503 EST. PATIENT, LEVEL III Diagnosis: ESSENTIAL HYPERTENSION[ICD9: 401.9] Merline Butcher MD, [facility] CPT-4: 15721 06/09/2015 ([id number]) 35243 EST. PATIENT, LEVEL III Diagnosis: ESSENTIAL HYPERTENSION[ICD9: 401.9] Lesley Butcher MD, [facility] CPT-4: 24929 04/29/2015 ([id number]) OFFICE/OUTPATIENT VISIT NEW Diagnosis: ESSENTIAL HYPERTENSION[ICD9: 401.9] Diagnosis: DEPRESSIVE DISORDER NEC[ICD9: 311] Diagnosis: Enlarged prostate[ICD9: 600.00] Diagnosis: Nasal inflammation due to allergen[ICD9: 477.9] Lesley Butcher MD, [facility] CPT-4: 08201 02/19/2015 Plan of Care Planned Activity Notes Codes Status Date Visit Plan: Medicare Exam - today we [...] care surrogate. 08/10/2018 Appointment: Mady Dunne WPtel: [facility] [facility] - Annual Wellness Visit 08/10/2018 [...] at home. 07/26/2018 Appointment: Lesley Butcher WPtel: [facility] (15 min) Moderate 07/26/2018 Patient Education: Patient [...] his dexamethasone. 06/12/2018 Appointment: [facility]Ptel[facility] (15 min) Moderate 06/12/2018 Patient Education: Patient Medication Summary Completed 06/12/2018 Visit Plan: Diverticulosis with recent GI bleeding - improved - continue with supportive care, avoid foods which cause any abdominal pain - monitor symptoms - call if any pain or bleeding recurs. Anemia - check labs today. Weakness - continue with increasing of activity. 05/10/2018 Appointment: Lesley Butcher WPtel[facility] (30 min) Complex 05/10/2018 Patient Education: Patient [...] implant. 03/27/2018 Appointment: [facility]el[phone] (15 min) Moderate 03/27/2018 Patient Education: Patient [...] to medications. 01/24/2018 Appointment: [facility] But[facility]el[phone] (15 min) Moderate 01/24/2018 Patient Education: Patient Medication Summary Completed 01/24/2018 Visit Plan: Influenza - pt started on tamiflu - pt to start on anti-inflammatories, tylenol and monitor symptoms. Pt to call if not improving. Pt to alert any close contacts as to illness. 12/08/2017 [phone] (30 min) Complex 12/08/2017 Patient Education: [...] at home. 10/27/2017 Appointment: Lesley Butcher WPtel: [facility] (15 min) Moderate 10/27/2017 Patient Education: Patient Medication Summary Completed 10/27/2017 Referral: External, Ordering Provider Referral Initiated 10/12/2017 Visit Plan: BPH - continue with dutasteride and flomax Dysphagia - referral to Dr. Kumar for EGD - question stricture - dysphagia intermittently - hx of stricture. 09/29/2017 Appointment: Lesley Butcher WPtel: [facility] (15 min) Moderate 09/29/2017 Patient Education: Patient Medication Summary Completed 09/29/2017 Care Plan: Referral Order SNOMED-CT : [id number] Pending 09/29/2017 Visit Plan: Hypertension - well [...] recommended patient to have an evaluation at [facility] to see if he has potential for cochlear implant. 09/01/2017 Appointment: Lesley Butcher WPtel: [facility] [place] (15 min) Moderate 09/01/2017 Patient Education: Patient Medication Summary Completed 09/01/2017 Care Plan: Referral Order SNOMED-CT : [id number] Pending 09/01/2017 Visit Plan: Medicare Exam - [...] care surrogate. 08/03/2017 Appointment: [phone] [facility] - Welcome to Medicare visit [...] current medications. 04/26/2017 Appointment: [facility] But[facility]Ptel[phone] (15 min) Moderate 04/26/2017 Patient Education: Patient [...] of oxybutynin to 10mg daily. 01/25/2017 Appointment: Lseley Butcher WPtel: [phone] [facility] (30 min) Complex 01/25/2017 Patient Education: Patient [...] detrol [place] 10/26/2016 Appointment: Lesley Butcher WPtel: [facility] (15 min) Moderate 10/26/2016 Patient Education: Patient [...] retention occur. 09/27/2016 Appointment: Lesley Butcher WPtel: [phone] [facility] (15 min) Moderate 09/27/2016 Patient Education: Patient [...] shelli andrea 06/28/2016 Appointment: Lesley Butcher WPtel: [facility] [place] (15 min) Moderate 06/28/2016 Patient Education: [...] and plan. 02/17/2016 Appointment: Merline Rose WPtel: [address] [place], [place] [phone] (30 min) Complex 02/17/2016 Patient Education: Patient [...] Completed 12/16/2015 Appointment: [facility] But[facility]Ptel[phone] [facility] (15 min) Moderate 12/04/2015 Appointment: [facility] Butcher [facility]Ptel[phone] [facility] (15 min) Moderate 12/02/2015 Visit Plan: Admission [...] THE PHARMACY 07/30/2015 Appointment: Lesley Butcher WPtel: [facility] (15 min) Moderate 07/30/2015 Patient Education: Patient [...] at home. 04/29/2015 Appointment: Lesley Butcher WPtel: [facility] (15 min) Moderate 04/29/2015 Patient Education: Patient [...] External, Ordering Provider Referral Appointment Requested Referral: [facility] 09/12 Referral info faxed Appointment Requested Referral: [facility] Referral Appointment Requested Instructions Comment . Hypertension [...] anemia - continue with oral iron. . Influenza - pt started on tamiflu [...] in the nasal steroid allergy spray. . Hypertension - well controlled - continue with current medications, continue with no added salt diet. Pt has been encouraged to exercise daily. The pt has been advised to call the office if there are any acute concerns about change in blood pressure readings at home. Depression - stable - continue with current medication. Urge incontinence - rx for detrol [place] . Diverticulosis with recent GI bleeding - [...] eye drops-zaditor Menieres-increase dexamethasone x 1 month CHECK FASTING LABS [...] exam, and the assessment and plan. . Medicare Exam - today we discussed [...] in blood pressure readings at home. . BPH - continue with dutasteride and [...] recommended patient to have an evaluation at [facility] to see if he has potential for cochlear implant. Vesicare 5mg - take one pill at [...] further attempt to reduce peripheral edema. . Medicare Exam - today we discussed [...] her DOPA paperwork for health care surrogate. add vitamin b12 dissolving tablets - 2000mcg [...] situational exposure. No change in current medications. Do physical therapy once the gout gets [...] exam, and the assessment and plan. . Vertigo - vestibular/cochlearVestibular therapy with Allan [...] agree with appt with shelli andrea . Hypertension - well controlled - continue [...] does not want medication at this time. Do physical therapy once the gout gets [...]
--- NOTE | 2018-12-19 12:51 | NUR ---
NOTIFIED OF BUSY ER WITH LONG WAIT TIME. ALSO NOTIFIED TO LET REGISTRATION KNOW OF ANY CHANGES.
--- OUTSIDE RECORDS SUMMARY | 2018-12-19 12:52 | XMS REPORT | CCD ---
Author Author [facility] Organization [facility] Address [address] [place] [address] Phone Care Team Providers Care Watch Train Inspector Name Role Phone PP Unavailable CCM Unavailable Summary Purpose Interface Exchange Insurance Providers Payer name Policy type / Coverage type Covered libertarian ID Effective Begin Date Effective End Date WPS Medicare Part B Medicare Part B [id number] 2018 Unknown [facility] Medicare Part B [id number] 2018 Unknown Family history Father Diagnosis Age At Onset Hypertension Unknown Coronary Artery Disease Unknown Sister Diagnosis Age At Onset Heart disease Unknown Mother Diagnosis Age At Onset Coronary Artery Disease Unknown Hypertension Unknown Social History Social History Element Codes Description Effective Dates Marital status Unknown 02/19/2015 Number of children Unknown 2 02/19/2015 Employment Unknown Retired 02/19/[address]: 419212653 Has never smoked or chewed tobacco 02/19/2015 Alcohol history Unknown occasionally drinks alcohol 02/19/2015 Allergies, Adverse Reactions, Alerts Substance Reaction Codes Entered Date Inactivated Date Status bactrim RxNorm: 724157 12/19/2015 No Inactive Date Active ciprofloxacin RxNorm: 72314 02/18/2015 No Inactive Date Active Past Medical [...] Start Date Stop Date Status Fill Instructions clonazepam 1 mg tablet RxNorm: 761450 1/2 Tablet(s) PO QHS 05/201812/21/2018 Active allopurinol 100 mg tablet RxNorm: 728864 TAKE ONE TABLET BY MOUTH ONCE DAILY 08/03/2018 No Stop Date Active citalopram 40 mg tablet RxNorm: 264386 TAKE ONE TABLET BY MOUTH ONCE DAILY 06/13/2018 No Stop Date Active Kenalog 40 mg/mL suspension for injection RxNorm: 0702653 Milliliter(s) Inj 06/12/2018 06/12/2018 Inactive clonazepam 1 mg tablet RxNorm: 067757 1 Tablet(s) PO QHS 201708/23/2018 Inactive citalopram 40 mg tablet RxNorm: 254992 1/2 Tablet(s) TAKE ONE TABLET BY MOUTH ONCE DAILY 05/24/2018 02/17/2019 Active losartan 50 mg tablet RxNorm: 545367 1/2 Tablet(s) PO daily 05/2018 No Stop Date Active clonazepam 1 mg tablet RxNorm: 995397 1/2 Tablet(s) TAKE ONE TABLET BY MOUTH ONCE DAILY AT BEDTIME AND ONE TABLET THREE TIMES DAILY NEEDED 05/24/2018 06/11/2018 Inactive spironolactone 25 mg tablet RxNorm: 053312 TAKE ONE TABLET BY MOUTH ONCE DAILY 05/22/2018 No Stop Date Active dexamethasone 0.5 mg tablet RxNorm: 144767 TAKE ONE TABLET BY MOUTH ONCE DAILY 02/21/2018 No Stop Date Active Flomax 0.4 mg capsule RxNorm: 564324 TAKE ONE CAPSULE BY MOUTH ONCE DAILY IN THE EVENING 12/19/2017 No Stop Date Active Tamiflu 75 mg capsule RxNorm: 714113 1 Capsule(s) PO BID 201712/12/2017 Inactive clonazepam 1 mg tablet RxNorm: 187033 Tablet(s) TAKE ONE TABLET BY MOUTH ONCE DAILY AT BEDTIME AND ONE TABLET THREE TIMES DAILY NEEDED 11/28/2017 01/26/2018 Inactive pantoprazole 40 mg tablet,delayed release RxNorm: 417295 TAKE ONE TABLET BY MOUTH ONCE DAILY AT BEDTIME 11/07/2017 No Stop Date Active allopurinol 100 mg tablet RxNorm: 995531 TAKE ONE TABLET BY MOUTH ONCE DAILY 10/03/2017 08/02/2018 Inactive pantoprazole 40 mg tablet,delayed release RxNorm: 079159 1 Tablet(s) PO BID 09/01/2017 05/28/2018 Inactive Vitamin B-6 100 mg tablet RxNorm: 103905 1 Tablet(s) PO daily 09/01/2017 06/11/2018 Inactive dutasteride 0.5 mg capsule RxNorm: 139150 1 Capsule(s) PO QPM 09/01/2017 06/11/2018 Inactive spironolactone 25 mg tablet RxNorm: 059258 TAKE ONE TABLET BY MOUTH ONCE DAILY 08/15/2017 05/21/2018 Inactive citalopram 40 mg tablet RxNorm: 584861 TAKE ONE TABLET BY MOUTH ONCE DAILY 08/08/2017 05/04/2018 Inactive dexamethasone 0.5 mg tablet RxNorm: 111500 TAKE ONE TABLET BY MOUTH ONCE DAILY 08/08/2017 11/05/2017 Inactive clonazepam 1 mg tablet RxNorm: 708315 TAKE ONE TABLET BY MOUTH ONCE DAILY AT BEDTIME AND ONE THREE TIMES DAILY NEEDED 05/12/2017 08/08/2017 Inactive clonazepam 1 mg tablet RxNorm: 804058 1 Tablet(s) PO QHS AND 1 TAB PO TID PRN 05/12/2017 05/13/2017 Inactive oxybutynin chloride ER 10 mg tablet,extended release 24 hr RxNorm: 782558 1 Tablet (s) PO daily 04/29/2017 08/02/2017 Inactive dexamethasone 0.5 mg tablet RxNorm: 713331 TAKE ONE TABLET BY MOUTH ONCE DAILY 02/14/2017 04/14/2017 Inactive Flomax 0.4 mg capsule RxNorm: 600265 TAKE ONE CAPSULE BY MOUTH ONCE DAILY IN THE EVENING 02/14/2017 11/10/2017 Inactive pantoprazole 40 mg tablet,delayed release RxNorm: 002821 TAKE ONE TABLET BY MOUTH ONCE DAILY AT BEDTIME 02/14/20172016 Inactive oxybutynin chloride ER 10 mg tablet,extended release 24 hr RxNorm: 426591 1 Tablet (s) PO daily 01/25/2017 04/24/2017 Inactive dexamethasone 0.5 mg tablet RxNorm: 925092 TAKE ONE TABLET BY MOUTH ONCE DAILY 11/10/2016 12/09/2016 Inactive oxybutynin chloride ER 5 mg tablet,extended release 24 hr RxNorm: 279075 1 Tablet( s) PO daily 10/28/2016 10/27/2016 Inactive oxybutynin chloride ER 5 mg tablet,extended release 24 hr RxNorm: 811708 1 Tablet( s) PO daily 10/28/2016 01/24/2017 Inactive Detrol LA 2 mg capsule,extended release RxNorm: 910749 1 Capsule(s) PO QPM 10/26/2016 10/27/2016 Inactive clonazepam 1 mg tablet RxNorm: 649722 1 Tablet(s) PO QHS AND 1 TAB PO TID PRN 10/20/2016 04/17/2017 Inactive dexamethasone 0.5 mg tablet RxNorm: 556014 TAKE ONE TABLET BY MOUTH ONCE DAILY 10/06/2016 11/04/2016 Inactive allopurinol 100 mg tablet RxNorm: 565677 1 Tablet(s) PO daily 09/30/2016 09/24/2017 Inactive Vesicare 5 mg tablet RxNorm: 057599 1 Tablet(s) PO QPM 201512/12/2016 Inactive spironolactone 25 mg tablet RxNorm: 348191 1 Tablet(s) PO daily 08/06/2016 07/31/2017 Inactive citalopram 40 mg tablet RxNorm: 538740 1 Tablet(s) PO daily 09/201606/22/2017 Inactive Plavix 75 mg tablet RxNorm: 536741 1 Tablet(s) PO daily 2015 No Stop Date Active iron ER 159 mg (45 mg iron) tablet,extended release RxNorm: 600534 1 Tablet(s) PO daily 04/27/2016 08/31/2017 Inactive dexamethasone 0.5 mg tablet RxNorm: 851374 1/2 Tablet(s) PO daily 04/27/2016 02/20/2018 Inactive allopurinol 100 mg tablet RxNorm: 471103 1 Tablet(s) PO daily 04/27/2016 09/29/2016 Inactive clonazepam 1 mg tablet RxNorm: 234289 1 Tablet(s) PO QHS and 1 tab po TID prn 04/14/2016 10/07/2016 Inactive allopurinol 100 mg tablet RxNorm: 986520 1 Tablet(s) PO daily 02/17/2016 04/26/2016 Inactive citalopram 20 mg tablet RxNorm: 616982 1 Tablet(s) PO daily 02/201606/27/2016 Inactive Flomax 0.4 mg capsule RxNorm: 747312 1 Capsule(s) PO QPM 201501/13/2017 Inactive [SAVINGS FOR NON-COVERED DRUGS -- BIN:[id number], PCN: ASPROD1, Group: XXXXX, ID # XXXXXXX, Questions: . THIS IS NOT INSURANCE.] pantoprazole 40 mg tablet,delayed release RxNorm: 730907 1 Tablet(s) PO QHS 01/20/2016 01/13/2017 Inactive Colcrys 0.6 mg tablet RxNorm: 826355 1 Tablet(s) PO daily 201503/05/2016 Inactive take daily x 7 days then daily as needed for gout flair colchicine 0.6 mg tablet RxNorm: 109890 1 Tablet(s) PO BID 01/01/2016 Inactive doxycycline hyclate 100 mg tablet RxNorm: 238016 1 Tablet(s) PO BID 12/19/2015 12/28/2015 Inactive doxycycline hyclate 100 mg tablet RxNorm: 679996 1 Tablet(s) PO BID 12/19/2015 12/18/2015 Inactive allopurinol 100 mg tablet RxNorm: 290696 1 Tablet(s) PO daily 12/16/2015 02/16/2016 Inactive colchicine 0.6 mg tablet RxNorm: 053987 Tablet(s) PO 1.2 mg PO in the morning and 0.6 mg at night for 2 days. 12/16/2015 Inactive allopurinol 100 mg tablet RxNorm: 761861 1 Tablet(s) PO daily 12/16/2015 12/15/2015 Inactive Protonix 40 mg tablet,delayed release RxNorm: 803241 1 Tablet(s) PO daily 12/16/2015 01/14/2016 Inactive Bactrim DS 800 mg-160 mg tablet RxNorm: 091930 1 Tablet(s) PO BID 12/16/2015 12/18/2015 Inactive colchicine 0.6 mg tablet RxNorm: 739676 Tablet(s) PO 1.2 mg for the first dose and 0.6 mg an hour after 12/15/20152015 Inactive dexamethasone 0.5 mg tablet RxNorm: 998827 1 Tablet(s) PO 12/1202/09/2016 Inactive Plavix 75 mg tablet RxNorm: 414642 1 Tablet(s) PO every other day 12/12/2015 04/09/2016 Inactive nitroglycerin 0.4 mg sublingual tablet RxNorm: 964238 1 Tablet(s) SL x3 in 15 min as needed 12/12/2015 04/26/2016 Inactive clonazepam 1 mg tablet RxNorm: 357281 1 Tablet(s) PO QHS and 1 tab po TID prn 12/11/2015 12/03/2016 Inactive L[place] 5 mg-325 mg tablet RxNorm: 774658 1-2 Tablet(s) PO Q6 as needed 12/11/2015 09/26/2016 Inactive clonazepam 1 mg tablet RxNorm: 802916 1 Tablet(s) PO QHS and 1 tab po TID prn 12/04/2015 12/10/2015 Inactive Flomax 0.4 mg capsule RxNorm: 970827 1 Capsule(s) PO QPM 201401/19/2016 Inactive [SAVINGS FOR NON-COVERED DRUGS -- BIN:[id number], N: ASPROD1, Group: XXXXX, ID # XXXXXXX, Questions: . THIS IS NOT INSURANCE.] Flomax 0.4 mg capsule RxNorm: 005831 1 Capsule(s) PO QPM 201409/21/2015 Inactive [SAVINGS FOR NON-COVERED DRUGS -- BIN:928307, PCN: ASPROD1, Group: XXXXX, ID # XXXXXXX, Questions: . THIS IS NOT INSURANCE.] clonazepam 1 mg tablet RxNorm: 472336 1 Tablet(s) PO QHS 201412/03/2015 Inactive coenzyme Q10 10 mg tablet RxNorm: 827817 1 Tablet(s) PO daily 07/30/2015 01/05/2016 Inactive spironolactone 25 mg tablet RxNorm: 660871 1 Tablet(s) PO daily 07/28/2015 07/21/2016 Inactive spironolactone 25 mg tablet RxNorm: 542831 1 Tablet(s) PO daily 07/22/2015 07/27/2015 Inactive clonazepam 1 mg tablet RxNorm: 119789 1 Tablet(s) PO QHS 201408/28/2015 Inactive losartan 25 mg tablet RxNorm: 912953 1 Tablet(s) PO daily 201403/20/2015 Inactive Flonase Allergy Relief 50 mcg/actuation nasal spray, suspension RxNorm: 1 [place] NASAL BID 02/19/2015 04/26/2016 Inactive [SAVINGS FOR NON-COVERED DRUGS -- BIN:[id number], PCN: ASPROD1, Group: XXXXX, ID# XXXXXXX, Questions: [phone]. THIS IS NOT INSURANCE.] Flomax 0.4 mg capsule RxNorm: 414369 1 Capsule(s) PO QPM 201409/15/2015 Inactive [SAVINGS FOR NON-COVERED DRUGS -- BIN:670255, PCN: ASPROD1, Group: XXXXX, ID # XXXXXXX, Questions: . THIS IS NOT INSURANCE.] citalopram 20 mg tablet RxNorm: 354881 1 Tablet(s) PO daily 03/201503/20/2015 Inactive atenolol 25 mg tablet RxNorm: 019072 1 Tablet(s) PO daily 201403/20/2015 Inactive Lipitor 20 mg tablet RxNorm: 643020 1 Tablet(s) PO daily 201403/20/2015 Inactive vitamin B complex oral RxNorm: 50127 oral No Start Date Active Claritin-D 24 Hour oral RxNorm: 650477 oral No Start Date Active cetirizine 10 mg tablet RxNorm: 4304240 1 Tablet(s) PO daily No Start Date Active Aleve 220 mg tablet RxNorm: 554799 Tablet(s) PO as needed No Start Date Active Vitamin D3 1,000 unit capsule RxNorm: 377317 2 Capsule(s) PO daily No Start Date Active Centrum Complete oral RxNorm: 26870 oral No Start Date Active glucosamine HCl 1,500 mg tablet RxNorm: 825128 1 Tablet(s) with 1200 mg chrondroitin PO daily No Start Date 2017 Inactive ranitidine 150 mg tablet RxNorm: 174893 1 Tablet(s) PO TID No Start Date 12/11/2015 Inactive Luling 5 mg-325 mg tablet RxNorm: 986748 1-2 Tablet(s) PO Q6 as needed No Start Date 12/10/2015 Inactive krill oil oral RxNorm : 78888 oral No Start Date 08/07/2018 Inactive Vitamin B-6 100 mg tablet RxNorm: 624657 1 Tablet(s) PO TID No Start Date 08/31/2017 Inactive spironolactone 25 mg tablet RxNorm: 794943 1 Tablet(s) PO daily No Start Date 07/21/2015 Inactive Vitamin D3 oral RxNorm : 2418 oral No Start Date 02/17/2016 Inactive clonazepam 1 mg tablet RxNorm: 048423 1 Tablet(s) PO daily No Start Date 05/22/2015 Inactive Glucosamine oral RxNorm: 4845 oral No Start Date 04/26/2016 Inactive losartan 50 mg tablet RxNorm: 145858 1 Tablet(s) PO daily No Start Date 05/23/2018 Inactive Plavix 75 mg tablet RxNorm: 313026 1 Tablet(s) PO every other day No Start Date 12/11/2015 Inactive Osteo Bi-Flex oral RxNorm: 1458682 oral No Start Date 09/01/2017 Inactive iron ER 159 mg (45 mg iron) tablet,extended release RxNorm: 945376 1 Tablet(s) PO BID No Start Date 04/26/2016 Inactive amlodipine 5 mg tablet RxNorm: 329891 1 Tablet(s) PO daily No Start Date 01/05/2016 Inactive aspirin 81 mg tablet,delayed release RxNorm: 888214 1 Tablet(s) PO daily No Start Date 05/09/2018 Inactive dexamethasone 0.5 mg tablet RxNorm: 022930 1 Tablet(s) PO No Start Date 12/11/2015 Inactive Vitamin B-12 1,000 mcg tablet RxNorm: 278442 6 Tablet(s) PO every other day No Start Date 06/11/2018 Inactive colchicine 0.6 mg tablet RxNorm: 194656 Tablet(s) PO 1.2 mg for the first dose and 0.6 mg an hour after No Start Date Inactive nitroglycerin 0.4 mg sublingual tablet RxNorm: 585306 1 Tablet(s) SL x3 in 15 min as needed No Start Date 12/11/2015 Inactive Fish Oil 1,000 mg capsule RxNorm: 1 Capsule(s) PO daily No Start Date 04/26/2016 Inactive Ecotrin Low Strength 81 mg tablet,enteric coated RxNorm: 6143162 1 Tablet(s) PO daily No Start Date 09/27/2016 Inactive Medication Administered Medication Codes Instructions Start Date Status Kenalog 40 mg/mL suspension for injection RxNorm: 1291459 Milliliter 06/12/2018 No longer Active Immunizations Vaccine [...] 29.0 pg 07/14/2018 Cbc With Differential Ord2 Henry% 7.5 % 07/14/2018 Cbc With Differential Ord2 MCHC 32.5 pg 07/14/2018 Cbc With Differential Ord2 Eos% 4.2 % 07/14/2018 Cbc With Differential Ord2 PLT 205 K/ul 07/14/2018 Cbc With Differential Ord2 Baso% 0.4 % 07/14/2018 Cbc With Differential Ord2 Neut ABS# 2.92 K/ul 07/14/2018 Cbc With Differential Ord2 RDW 14.5 % 07/14/2018 Cbc With Differential Ord2 Lymph ABS# 1.92 K/ul 07/14/2018 Cbc With Differential Ord2 Henry ABS# 0.4 K/ul 07/14/2018 Cbc With Differential Ord2 Eos ABS# 0.2 K/ul 07/14/2018 Cbc With Differential Ord2 Baso ABS# 0.0 K/ul 07/14/2018 Renal Uke473 NA 140 mEq/L 07/14/2018 Renal Uyi102 K 4.2 mEq/L 07/14/2018 Renal Qrx360 CL 103 mEq/L 07/14/2018 Renal Mtn683 CO2 29.0 mEq/L 07/14/2018 Renal Iqa871 ANION GAP 12 07/14/2018 Renal Vyk326 Osmo 280 mOsmo 07/14/2018 Renal Uic358 GLUCOSE 95 mg/dL 07/14/2018 Renal Pjm067 BUN 15 mg/dL 07/14/2018 Renal Hdz730 Creat 1.2 mg/dL 07/14/2018 Renal Rlb055 eGFR 64 ml/min/1.73m2 07/14/2018 Renal Ihw802 B/C Ratio 12.8 Ratio 07/14/2018 Renal Fjz095 CALCIUM 9.6 mg/dL 07/14/2018 Renal Rmb116 PHOS 3.2 mg/dL 07/14/2018 Renal Nto655 ALBUMIN 4.4 g/dL 07/14/2018 Magnesium Ord90 Mag 1.9 mg/dL 06/08/2018 Cbc With Differential Ord2 WBC 6.19 K/ul 06/08/2018 Cbc With Differential Ord2 RBC 4.31 M/ul 06/08/2018 Cbc With Differential Ord2 HGB 12.8 g/dl 06/08/2018 Cbc With Differential Ord2 Neut% 53.9 % 06/08/2018 Cbc With Differential Ord2 HCT 38.9 % 06/08/2018 Cbc With Differential Ord2 Lymph% 34.6 % 06/08/2018 Cbc With Differential Ord2 MCV 90.3 fl 06/08/2018 Cbc With Differential Ord2 Henry% 8.7 % 06/08/2018 Cbc With Differential Ord2 MCH 29.7 pg 06/08/2018 Cbc With Differential Ord2 MCHC 32.9 pg 06/08/2018 Cbc With Differential Ord2 Eos% 2.6 % 06/08/2018 Cbc With Differential Ord2 Baso% 0.2 % 06/08/2018 Cbc With Differential Ord2 PLT 257 K/ul 06/08/2018 Cbc With Differential Ord2 RDW 14.3 % 06/08/2018 Cbc With Differential Ord2 Neut ABS# 3.34 K/ul 06/08/2018 Cbc With Differential Ord2 Lymph ABS# 2.14 K/ul 06/08/2018 Cbc With Differential Ord2 Henry ABS# 0.5 K/ul 06/08/2018 Cbc With Differential Ord2 Eos ABS# 0.2 K/ul 06/08/2018 Cbc With Differential Ord2 Baso ABS# 0.0 K/ul 06/08/2018 Comp Metabolic Boy239 NA 139 mEq/L 06/08/2018 Comp Metabolic Zsa507 K 4.6 mEq/L 06/08/2018 Comp Metabolic Ymo417 CL 105 mEq/L 06/08/2018 Comp Metabolic Byw435 CO2 26.0 mEq/L 06/08/2018 Comp Metabolic Ily580 ANION GAP 13 06/08/2018 Comp Metabolic Duo983 GLUCOSE 95 mg/dL 06/08/2018 Comp Metabolic Aze063 Creat 1.2 mg/dL 06/08/2018 Comp Metabolic Jtq555 eGFR 59 ml/min/1.73m2 06/08/2018 Comp Metabolic Gvq821 BUN 12 mg/dL 06/08/2018 Comp Metabolic Gah498 B/C Ratio 9.7 Ratio 06/08/2018 Comp Metabolic Kdh493 CALCIUM 9.9 mg/dL 06/08/2018 Comp Metabolic Rfn725 ALK PHOS 70 U/L 06/08/2018 Comp Metabolic Gyp864 AST(SGOT) 21 U/L 06/08/2018 Comp Metabolic Oni428 ALT(SGPT) 20 U/L 06/08/2018 Comp Metabolic Ons858 BILI T 1.0 mg/dL 06/08/2018 Comp Metabolic Iby156 ALBUMIN 4.5 g/dL 06/08/2018 Comp Metabolic Ciu137 TPRO 7.2 g/dL 06/08/2018 Comp Metabolic Sws166 GLOB 2.8 g/dL 06/08/2018 Comp Metabolic Uux921 A/G Ratio 1.6 Ratio 06/08/2018 Comp Metabolic Ehy510 Osmo 277 mOsmo 06/08/2018 Cbc With Differential [...] 90.7 fl 05/10/2018 Cbc With Differential Ord2 Henry% 6.5 % 05/10/2018 Cbc With Differential Ord2 MCH 30.6 pg 05/10/2018 Cbc With Differential Ord2 MCHC 33.8 pg 05/10/2018 Cbc With Differential Ord2 Eos% 3.2 % 05/10/2018 Cbc With Differential Ord2 Baso% 0.4 % 05/10/2018 Cbc With Differential Ord2 PLT 330 K/ul 05/10/2018 Cbc With Differential Ord2 Neut ABS# 3.08 K/ul 05/10/2018 Cbc With Differential Ord2 RDW 14.5 % 05/10/2018 Cbc With Differential Ord2 Lymph ABS# 1.94 K/ul 05/10/2018 Cbc With Differential Ord2 Henry ABS# 0.4 K/ul 05/10/2018 Cbc With Differential [...] Ord30 C/HDL 4.2 Ratio 01/26/2018 Comp Metabolic Ekq265 NA 138 mEq/L 01/26/2018 Comp Metabolic Edi180 K 4.2 mEq/L 01/26/2018 Comp Metabolic Uaz470 CL 105 mEq/L 01/26/2018 Comp Metabolic Eii247 CO2 23.0 mEq/L 01/26/2018 Comp Metabolic Euu792 ANION GAP 14 01/26/2018 Comp Metabolic Qct542 GLUCOSE 89 mg/dL 01/26/2018 Comp Metabolic Jvq475 Creat 1.1 mg/dL 01/26/2018 Comp Metabolic Xfd360 eGFR 70 ml/min/1.73m2 01/26/2018 Comp Metabolic Hmr166 BUN 18 mg/dL 01/26/2018 Comp Metabolic Ofp692 B/C Ratio 16.8 Ratio 01/26/2018 Comp Metabolic Aud890 CALCIUM 9.2 mg/dL 01/26/2018 Comp Metabolic Ckc896 ALK PHOS 67 U/L 01/26/2018 Comp Metabolic Sru164 AST(SGOT) 31 U/L 01/26/2018 Comp Metabolic Ufw767 ALT(SGPT) 23 U/L 01/26/2018 Comp Metabolic Jxi338 BILI T 1.7 mg/dL 01/26/2018 Comp Metabolic Phk654 ALBUMIN 3.9 g/dL 01/26/2018 Comp Metabolic Yba217 TPRO 6.7 g/dL 01/26/2018 Comp Metabolic Dvy817 GLOB 2.8 g/dL 01/26/2018 Comp Metabolic Ihr558 A/G Ratio 1.4 Ratio 01/26/2018 Comp Metabolic Yee829 Osmo 277 mOsmo 01/26/2018 Cbc With Differential [...] 90.7 fl 01/26/2018 Cbc With Differential Ord2 Henry% 7.1 % 01/26/2018 Cbc With Differential Ord2 MCH 30.7 pg 01/26/2018 Cbc With Differential Ord2 MCHC 33.9 pg 01/26/2018 Cbc With Differential Ord2 Eos% 2.3 % 01/26/2018 Cbc With Differential Ord2 PLT 217 K/ul 01/26/2018 Cbc With Differential Ord2 Baso% 0.2 % 01/26/2018 Cbc With Differential Ord2 RDW 15.1 % 01/26/2018 Cbc With Differential Ord2 Neut ABS# 3.61 K/ul 01/26/2018 Cbc With Differential Ord2 Lymph ABS# 2.40 K/ul 01/26/2018 Cbc With Differential Ord2 Henry ABS# 0.5 K/ul 01/26/2018 Cbc With Differential Ord2 Eos ABS# 0.2 K/ul 01/26/2018 Cbc With Differential Ord2 Baso ABS# 0.0 K/ul 01/26/2018 Tsh Ord6 TSH (3rd IS) 1.81 uIU/mL 01/26/2018 Testosterone Ucn673 Testo 370.3 ng/dL 01/26/2018 C A/B FLU [id number] Influenza A Scr Negative 12/08/2017 C A/B FLU [id number] Influenza B Scr Negative 12/08/2017 C A/B FLU [id number] Influenza Intrp B AG: PRID:PT:NOSE:NOM:IF See Footnote [...] 14.5 g/dl 04/11/2017 Cbc With Differential Ord2 Neut% 58.4 % 04/11/2017 Cbc With Differential Ord2 HCT 42.2 % 04/11/2017 Cbc With Differential Ord2 Lymph% 30.3 % 04/11/2017 Cbc With Differential Ord2 MCV 89.6 fl 04/11/2017 Cbc With Differential Ord2 Henry% 8.1 % 04/11/2017 Cbc With Differential Ord2 [...] 1.91 K/ul 04/11/2017 Cbc With Differential Ord2 Henry ABS# 0.5 K/ul 04/11/2017 Cbc With Differential Ord2 Eos ABS# 0.2 K/ul 04/11/2017 Cbc With Differential Ord2 Baso ABS# 0.0 K/ul 04/11/2017 Comp Metabolic Nde471 NA 140 mEq/L 04/11/2017 Comp Metabolic Tzu578 K 4.1 mEq/L 04/11/2017 Comp Metabolic Ntv551 CL 105 mEq/L 04/11/2017 Comp Metabolic Hud463 CO2 26.0 mEq/L 04/11/2017 Comp Metabolic Dtv633 ANION GAP 13 04/11/2017 Comp Metabolic Fds632 GLUCOSE 88 mg/dL 04/11/2017 Comp Metabolic Mda634 Creat 1.1 mg/dL 04/11/2017 Comp Metabolic Vta128 eGFR 66 ml/min/1.73m2 04/11/2017 Comp Metabolic Nxh688 BUN 18 mg/dL 04/11/2017 Comp Metabolic Wda907 B/C Ratio 15.9 Ratio 04/11/2017 Comp Metabolic Hok821 CALCIUM 9.0 mg/dL 04/11/2017 Comp Metabolic Ypc706 ALK PHOS 72 U/L 04/11/2017 Comp Metabolic Epy055 AST(SGOT) 22 U/L 04/11/2017 Comp Metabolic Uzr771 ALT(SGPT) 26 U/L 04/11/2017 Comp Metabolic Aff498 BILI T 1.0 mg/dL 04/11/2017 Comp Metabolic Qby863 ALBUMIN 4.0 g/dL 04/11/2017 Comp Metabolic Cop038 TPRO 6.4 g/dL 04/11/2017 Comp Metabolic Eau285 GLOB 2.4 g/dL 04/11/2017 Comp Metabolic Vjb843 A/G Ratio 1.6 Ratio 04/11/2017 Comp Metabolic Pyq377 Osmo 281 mOsmo 04/11/2017 Vitamin D 25 Oh Zfj5601 VITAMIN D, 25 HYDROXY 65.52 ng/mL Cbc [...] 28.5 pg 05/18/2016 Cbc With Differential Ord2 Henry% 7.2 % 05/18/2016 Cbc With Differential Ord2 Eos% 3.1 % 05/18/2016 Cbc With Differential Ord2 MCHC 33.5 pg 05/18/2016 Cbc With Differential Ord2 Baso% 0.2 % 05/18/2016 Cbc With Differential Ord2 PLT 222 K/ul 05/18/2016 Cbc With Differential Ord2 RDW 15.8 % 05/18/2016 Cbc With Differential Ord2 Neut ABS# 3.40 K/ul 05/18/2016 Cbc With Differential Ord2 Lymph ABS# 1.80 K/ul 05/18/2016 Cbc With Differential Ord2 Henry ABS# 0.4 K/ul 05/18/2016 Cbc With Differential Ord2 Eos ABS# 0.2 K/ul 05/18/2016 Cbc With Differential Ord2 Baso ABS# 0.0 K/ul 05/18/2016 Magnesium Ord90 Mag 2.0 mg/dL 05/18/2016 Renal Sbo973 NA 139 mEq/L 05/18/2016 Renal Vpt879 K 4.0 mEq/L 05/18/2016 Renal Zwj945 CL 104 mEq/L 05/18/2016 Renal Tcs554 CO2 27.0 mEq/L 05/18/2016 Renal Waq106 ANION GAP 12 05/18/2016 Renal Rbj212 Osmo 279 mOsmo 05/18/2016 Renal Cdy002 GLUCOSE 91 mg/dL 05/18/2016 Renal Xnc656 BUN 18 mg/dL 05/18/2016 Renal Ort248 Creat 1.3 mg/dL 05/18/2016 Renal Plt725 eGFR 59 ml/min/1.73m2 05/18/2016 Renal Iaz543 B/C Ratio 14.3 Ratio 05/18/2016 Renal Zpn277 CALCIUM 9.3 mg/dL 05/18/2016 Renal Wtk356 PHOS 3.2 mg/dL 05/18/2016 Renal Uqr927 ALBUMIN 4.2 g/dL 05/18/2016 Random Urine Protein/Creatinine Ratio Lmz7200 U Prot 15.0 mg/dl 05/18/2016 Random Urine Protein/Creatinine Ratio Qpl0915 U CREAT 141.0 mg/dL 05/18/2016 Random Urine Protein/Creatinine Ratio Tyd4964 R MTP/Creat Ratio 0.11 05/18/2016 Urinalysis Ord28 [...] 40.4 % 02/19/2016 Cbc With Differential Ord2 Lymph% 34.9 % 02/19/2016 Cbc With Differential Ord2 MCV 85.8 fl 02/19/2016 Cbc With Differential Ord2 Henry% 9.5 % 02/19/2016 Cbc With Differential Ord2 MCH 28.5 pg 02/19/2016 Cbc With Differential Ord2 Eos% 3.5 % 02/19/2016 Cbc With Differential Ord2 MCHC 33.2 pg 02/19/2016 Cbc With Differential Ord2 PLT 221 K/ul 02/19/2016 Cbc With Differential Ord2 Baso% 0.2 % 02/19/2016 Cbc With Differential Ord2 Neut ABS# 2.84 K/ul 02/19/2016 Cbc With Differential Ord2 RDW 16.4 % 02/19/2016 Cbc With Differential Ord2 Lymph ABS# 1.91 K/ul 02/19/2016 Cbc With Differential Ord2 Henry ABS# 0.5 K/ul 02/19/2016 Cbc With Differential Ord2 Eos ABS# 0.2 K/ul 02/19/2016 Cbc With Differential Ord2 Baso ABS# 0.0 K/ul 02/19/2016 Cbc With Differential Ord2 New Analyzer Notice Please note new ref ranges starting 10-29-2015 due to implemntation of new five part differential hematolgy analyzer. 02/19/2016 Tsh Ord6 hTSH II 2.10 uIU/mL 02/19/2016 Comp Metabolic Stk133 NA 138 mEq/L 02/19/2016 Comp Metabolic Wre037 K 3.8 mEq/L 02/19/2016 Comp Metabolic Abj619 CL 103 mEq/L 02/19/2016 Comp Metabolic Uye642 CO2 28.0 mEq/L 02/19/2016 Comp Metabolic Fwr961 ANION GAP 11 02/19/2016 Comp Metabolic Jcs523 GLUCOSE 94 mg/dL 02/19/2016 Comp Metabolic Izc587 Creat 1.0 mg/dL 02/19/2016 Comp Metabolic Mny493 eGFR 75 ml/min/1.73m2 02/19/2016 Comp Metabolic Ikq581 BUN 18 mg/dL 02/19/2016 Comp Metabolic Dmf630 B/C Ratio 17.6 Ratio 02/19/2016 Comp Metabolic Awe098 CALCIUM 9.6 mg/dL 02/19/2016 Comp Metabolic Vpr149 ALK PHOS 93 U/L 02/19/2016 Comp Metabolic Mns500 AST(SGOT) 23 U/L 02/19/2016 Comp Metabolic Gvz730 ALT(SGPT) 19 U/L 02/19/2016 Comp Metabolic Qce664 BILI T 0.8 mg/dL 02/19/2016 Comp Metabolic Lbo167 ALBUMIN 4.1 g/dL 02/19/2016 Comp Metabolic Qau722 TPRO 6.8 g/dL 02/19/2016 Comp Metabolic Ixv158 GLOB 2.7 g/dL 02/19/2016 Comp Metabolic Tdc427 A/G Ratio 1.5 Ratio 02/19/2016 Comp Metabolic Jfv977 Osmo 277 mOsmo 02/19/2016 Uric Acid Ord77 Uric A 6.0 mg/dL 02/19/2016 Total Psa Ord10 PSA 0.82 ng/mL 02/19/2016 Comp Metabolic Fyf446 NA 140 mEq/L 12/16/2015 Comp Metabolic Cep151 K 4.0 mEq/L 12/16/2015 Comp Metabolic Izs859 CL 105 mEq/L 12/16/2015 Comp Metabolic Fhq371 CO2 24.0 mEq/L 12/16/2015 Comp Metabolic Ihe223 ANION GAP 15 12/16/2015 Comp Metabolic Aeh600 GLUCOSE 85 mg/dL 12/16/2015 Comp Metabolic Ymk751 Creat 1.2 mg/dL 12/16/2015 Comp Metabolic Wqd752 eGFR 65 ml/min/1.73m2 12/16/2015 Comp Metabolic Vzs428 BUN 14 mg/dL 12/16/2015 Comp Metabolic Lzs693 B/C Ratio 12.1 Ratio 12/16/2015 Comp Metabolic Enw622 CALCIUM 9.1 mg/dL 12/16/2015 Comp Metabolic Hqz951 ALK PHOS 162 U/L 12/16/2015 Comp Metabolic Nal684 AST(SGOT) 14 U/L 12/16/2015 Comp Metabolic Jkd622 ALT(SGPT) 17 U/L 12/16/2015 Comp Metabolic Qgl663 BILI T 1.0 mg/dL 12/16/2015 Comp Metabolic Iao439 ALBUMIN 3.4 g/dL 12/16/2015 Comp Metabolic Obe528 TPRO 6.2 g/dL 12/16/2015 Comp Metabolic Qyq067 GLOB 2.9 g/dL 12/16/2015 Comp Metabolic Tyc063 A/G Ratio 1.2 Ratio 12/16/2015 Comp Metabolic Rzr479 Osmo 279 mOsmo 12/16/2015 Uric Acid Ord77 [...] 29.9 % 12/16/2015 Cbc With Differential Ord2 MCH 28.1 pg 12/16/2015 Cbc With Differential Ord2 Henry% 7.5 % 12/16/2015 Cbc With Differential Ord2 [...] 1.52 K/ul 12/16/2015 Cbc With Differential Ord2 Henry ABS# 0.4 K/ul 12/16/2015 Cbc With Differential [...] C/HDL 4.0 Ratio 07/21/2015 Total Volume Urine Lyy456 TV/24hr 1400 ml 05/16/2015 Urine Protein 24Hr Alm372 U Prot 5.1 mg/dl 05/16/2015 Urine Protein 24Hr Dwn656 U Prot24 71.5 mg/24hr 05/16/2015 Cbc With [...] Differential Ord2 RDW 15.4 % 05/15/2015 Renal Tuo710 NA 135 mEq/L 05/15/2015 Renal Dbd519 K 3.9 mEq/L 05/15/2015 Renal Aue200 CL 101 mEq/L 05/15/2015 Renal Dik984 CO2 27.0 mEq/L 05/15/2015 Renal Fch599 ANION GAP 11 05/15/2015 Renal Fcs455 Osmo 274 mOsmo 05/15/2015 Renal Xge117 GLUCOSE 132 mg/dL 05/15/2015 Renal Ojg430 BUN 19 mg/dL 05/15/2015 Renal Ksb106 Creat 1.1 mg/dL 05/15/2015 Renal Ift818 eGFR 67 ml/min/1.73m2 05/15/2015 Renal Inc094 B/C Ratio 17.0 Ratio 05/15/2015 Renal Yqw390 CALCIUM 9.6 mg/dL 05/15/2015 Renal Ovm214 PHOS 3.0 mg/dL 05/15/2015 Renal Yqe708 ALBUMIN 4.3 g/dL 05/15/2015 Total Psa Ord10 [...] Formatting Model/CDA Sections, Assigned to/Sharee Ramirez CPT-4: 54049Ijzwlpe 07/05/2018 THER/PROPH/DIAG INJ SC/IM CPT-4: 47386 06/12/2018 TRIAMCINOLONE ACET INJ NOS CPT-4: J3301 06/12/2018 PPPS, SUBSEQ VISIT CPT -4: G0439 08/03/2017 ADMIN INFLUENZA VIRUS VAC CPT-4: G0008 06/28/2016 FLU VACC PRSV FREE INC ANTIG CPT-4: 11787 06/28/2016 TENIVAC TD VACCINE NO PRSRV 7/> IM CPT-4: 00026 06/28/2016 OCCULT BLOOD FECES CPT -4: 72444 02/19/2015 Vital Signs Date Vital 08/10/2018 BMI: 29.4 Code: 88212-4 Height: 6' Weight: 217 lbs 07/26/2018 Blood Pressure 1: 116/72 Code : 8480-6 BMI: 29.4 Code : 47744-5 Heart Rate 1 : 102 bpm Height: 6' SpO2: 96% Weight: 217 lbs 07/05/2018 Blood Pressure 1: 132/72 Code : 8480-6 Heart Rate 1: 60 bpm SpO2: 95% 06/12/2018 Blood Pressure 1: 120/78 Code : 8480-6 BMI: 29.6 Code : 84434-6 Heart Rate 1 : 103 bpm Height: 6' SpO2: 96% Weight: 218 lbs 05/10/2018 Blood Pressure 1: 114/68 Code : 8480-6 BMI: 29.4 Code : 50138-0 Heart Rate 1 : 92 bpm Height: 6' SpO2: 97% Weight: 217 lbs 03/27/2018 Blood Pressure 1: 126/74 Code : 8480-6 BMI: 30.1 Code : 03269-3 Heart Rate 1 : 103 bpm Height: 6' SpO2: 96% Weight: 222 lbs 01/25/2018 Blood Pressure 1: 122/70 Code : 8480-6 Blood Pressure 2: 126/73 Code: 8480-6 Heart Rate 1: 63 bpm SpO2: 94% 01/24/2018 Blood Pressure 1: 110/72 Code : 8480-6 BMI: 29.7 Code : 14774-3 Heart Rate 1 : 88 bpm Height: 6' SpO2: 95% Weight: 219 lbs 12/08/2017 Blood Pressure 1: 120/68 Code : 8480-6 BMI: 30.0 Code : 24244-9 Heart Rate 1 : 91 bpm Height: 6' SpO2: 96% Temperature: 36.7 (C) / 98.1 (F) Weight: 221 lbs 10/27/2017 Blood Pressure 1: 124/76 Code : 8480-6 BMI: 30.1 Code : 39886-5 Heart Rate 1 : 69 bpm Height: 6' SpO2: 95% Weight: 222 lbs 09/29/2017 Blood Pressure 1: 118 Code : 8480-6 BMI: 29.9 Code : 86498-1 Heart Rate 1 : 81 bpm Height: 6' SpO2: 95% Weight: 220 lbs 8 oz 09/01/2017 Blood Pressure 1: 122/82 Code : 8480-6 BMI: 29.6 Code : 20590-2 Heart Rate 1 : 75 bpm Height: 6' SpO2: 97% Weight: 218 lbs 08/03/2017 Blood Pressure 1: 120/68 Code : 8480-6 Heart Rate 1: 68 bpm Height: 6' SpO2: 94% Waist Measure (cm): 97 cm 04/26/2017 Blood Pressure 1: 122/72 Code : 8480-6 BMI: 29.4 Code : 54852-4 Heart Rate 1 : 85 bpm Height: 6' SpO2: 92% Weight: 217 lbs 01/25/2017 Blood Pressure 1: 118/78 Code : 8480-6 BMI: 29.4 Code : 66184-2 Heart Rate 1 : 72 bpm Height: 6' SpO2: 94% Temperature: 36.9 (C) / 98.5 (F) Weight: 217 lbs 10/26/2016 Blood Pressure 1: 152/86 Code : 8480-6 BMI: 29.7 Code : 40981-4 Heart Rate 1 : 58 bpm Height: 6' Weight: 219 lbs 09/27/2016 Blood Pressure 1: 138/80 Code : 8480-6 BMI: 29.4 Code : 80091-0 Heart Rate 1 : 52 bpm Height: 6' SpO2: 98% Weight: 217 lbs 06/28/2016 Blood Pressure 1: 128/86 Code : 8480-6 BMI: 29.6 Code : 29855-7 Heart Rate 1 : 69 bpm Height: 6' SpO2: 93% Weight: 218 lbs 04/27/2016 Blood Pressure 1: 118/82 Code : 8480-6 BMI: 29.3 Code : 54043-0 Heart Rate 1 : 85 bpm Height: 6' SpO2: 98% Weight: 216 lbs 02/17/2016 Blood Pressure 1: 132/80 Code : 8480-6 BMI: 28.8 Code : 98748-7 Heart Rate 1 : 94 bpm Height: 6' SpO2: 98% Weight: 212 lbs 01/20/2016 Blood Pressure 1: 120/70 Code : 8480-6 BMI: 29.7 Code : 28172-1 Heart Rate 1 : 87 bpm Height: 6' SpO2: 92% Weight: 219 lbs 01/06/2016 Blood Pressure 1: 122/88 Code : 8480-6 BMI: 28.8 Code : 29425-7 Heart Rate 1 : 83 bpm Height: [...] Code : 8480-6 BMI: 30.5 Code : 51117-2 Heart Rate 1 : 82 bpm Height: 6' SpO2: 92% Weight: 225 lbs 06/09/2015 Blood Pressure 1: 130/76 Code : 8480-6 BMI: 31.1 Code : 94368-0 Heart Rate 1 : 65 bpm Height: 6' SpO2: 96% Weight: 229 lbs 04/29/2015 Blood Pressure 1: 118/78 Code : 8480-6 BMI: 30.7 Code : 31808-8 Heart Rate 1 : 70 bpm Height: 6' Weight: 226 lbs 02/19/2015 Blood Pressure 1: 118/70 Code : 8480-6 BMI: 29.7 Code : 73679-9 Heart Rate 1 : 68 bpm Height: [...] data Encounters Encounter Performer Location Codes Date EST. PATIENT, LEVEL III Diagnosis: Dizziness and giddiness[ICD10: R42] Diagnosis: Vertigo of central origin, right ear[ICD10: H81.41] Diagnosis: Essential (primary) hypertension[ICD10: I10] Lesley Butcher MD, [facility] CPT-4: 57792 07/26/2018 ([id number]) [id number] EST. PATIENT, LEVEL III Diagnosis: Essential (primary) hypertension[ICD10: I10] Lesley Butcher MD, [facility] CPT-4: 57785 06/12/2018 [id number]) 85705 EST. PATIENT, LEVEL IV Diagnosis: Other iron deficiency anemias[ICD10: D50.8] Diagnosis: Weakness[ICD10: R53.1] Diagnosis: Diverticulosis of large intestine without perforation or abscess with bleeding[ICD10: K57.31] Lesley Butcher MD, [facility] CPT-4: 13866 05/10/2018 ([id number]) 91280 EST. PATIENT, LEVEL IV Diagnosis: Essential (primary) hypertension[ICD10: I10] Diagnosis: Major depressive disorder, recurrent, mild[ICD10: F33.0] Diagnosis: Sensorineural hearing loss, bilateral[ICD10: H90.3] Lesley Butcher MD, [facility] CPT-4: 57515 03/27/2018 ([id number]) Miscellaneous no charge Diagnosis: Essential (primary) hypertension[ICD10: I10] Mady Butcher MD, [facility] CPT-4: 58189 01/25/2018 ([id number]) 97317 EST. PATIENT, LEVEL IV Diagnosis: Essential (primary) hypertension[ICD10: I10] Diagnosis: Sensorineural hearing loss, bilateral[ICD10: H90.3] Diagnosis: Mixed hyperlipidemia[ICD10: E78.2] Diagnosis: Major depressive disorder, recurrent, mild[ICD10: F33.0] Lesley Butcher MD, [facility] CPT-4: 63761 01/24/2018 [id number] EST. PATIENT, LEVEL IV Diagnosis: Other malaise[ICD10: R53.81] Diagnosis: Fever, unspecified[ICD10: R50.9] Mady Butcher MD, [facility] CPT- 4: 23195 12/08/2017 ([id number]) 52354 EST. PATIENT, LEVEL III Diagnosis: Essential (primary) hypertension[ICD10: I10] Lesley Butcher MD, [facility] CPT-4: 38732 10/27/2017 ([id number]) 74297 EST. PATIENT, LEVEL III Diagnosis: Benign prostatic hyperplasia with lower urinary tract symptoms[ICD10 : N40.1] Diagnosis: Dysphagia, pharyngeal phase[ICD10: R13.13] Lesley Butcher MD, [facility] CPT-4: 92917 09/29/2017 ([id number]) 03599 EST. PATIENT, LEVEL IV Diagnosis: Essential (primary) hypertension[ICD10: I10] Diagnosis: Major depressive disorder, recurrent, mild[ICD10: F33.0] Diagnosis: Sensorineural hearing loss, bilateral[ICD10: H90.3] Lesley Butcher MD, [facility] CPT-4: 01404 09/01/2017 ([id number]) 38375 EST. PATIENT, LEVEL IV Diagnosis: Essential (primary) hypertension[ICD10: I10] Diagnosis: Major depressive disorder, recurrent, mild[ICD10: F33.0] Diagnosis: Mixed hyperlipidemia[ICD10: E78.2] Lesley Butcher MD, [facility] CPT-4: 44273 04/26/2017 ([id number]) 09319 EST. PATIENT, LEVEL IV Diagnosis: Essential (primary) hypertension[ICD10: I10] Diagnosis: Major depressive disorder, recurrent, mild[ICD10: F33.0] Diagnosis: Urge incontinence[ICD10: N39.41] Lesley Butcher MD, [facility] CPT-4: 45503 01/25/2017 ([id number]) 07155 EST. PATIENT, LEVEL IV Diagnosis: Essential (primary) hypertension[ICD10: I10] Diagnosis: Major depressive disorder, recurrent, mild[ICD10: F33.0] Diagnosis: Urge incontinence[ICD10: N39.41] Lesley Butcher MD, [facility] CPT-4: 94787 10/26/2016 ([id number]) 39583 EST. PATIENT, LEVEL III Diagnosis: Essential (primary) hypertension[ICD10: I10] Diagnosis: Major depressive disorder, recurrent, mild[ICD10: F33.0] Diagnosis: Urge incontinence[ICD10: N39.41] Lesley Butcher MD, [facility] CPT-4: 42681 09/27/2016 [id number]) 44629 EST. PATIENT, LEVEL IV Diagnosis: Essential (primary) hypertension[ICD10: I10] Diagnosis: Encounter for immunization[ICD10: Z23] Diagnosis: Laceration without foreign body of left forearm, initial encounter[ ICD10: S51.812A] Diagnosis: Laceration without foreign body of right forearm, initial encounter[ ICD10: S51.811A] Diagnosis: Major depressive disorder, recurrent, mild[ICD10: F33.0] Lesley Butcher MD, [facility] CPT-4: 54351 06/28/2016 ([id number]) 22039 EST. 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 PATIENT, LEVEL IV Diagnosis: Weakness[ICD10: R53.1] Diagnosis: Gout, unspecified[ICD10: M10.9] Diagnosis: Hypotension, unspecified[ICD10: I95.9] Lesley Butcher MD, [facility] CPT-4: 88601 12/16/2015 ([id number]) Patient admitted to the hospital from clinic (NO CHARGE) Diagnosis: Hypoxemia[ICD10: R09.02] Diagnosis: Weakness[ICD10: R53.1] Diagnosis: Dyspnea, unspecified[ICD10: R06.00] Mady Butcher MD, [facility] CPT-4: 51311H 11/27/2015 ([id number]) 23651 EST. PATIENT, LEVEL III Diagnosis: Essential (primary) hypertension[ICD10: I10] Diagnosis: Gastro-esophageal reflux disease without esophagitis[ICD10: K21.9] Lesley Butcher MD, [facility] CPT-4: 41164 07/30/2015 ([id number]) 76498 EST. PATIENT, LEVEL III Diagnosis: ESSENTIAL HYPERTENSION[ICD9: 401.9] Merline Butcher MD, [facility] CPT-4: 78613 06/09/2015 ([id number]) 79854 EST. PATIENT, LEVEL III Diagnosis: ESSENTIAL HYPERTENSION[ICD9: 401.9] Lesley Butcher MD, [facility] CPT-4: 21968 04/29/2015 ([id number]) OFFICE/OUTPATIENT VISIT NEW Diagnosis: ESSENTIAL HYPERTENSION[ICD9: 401.9] Diagnosis: DEPRESSIVE DISORDER NEC[ICD9: 311] Diagnosis: Enlarged prostate[ICD9: 600.00] Diagnosis: Nasal inflammation due to allergen[ICD9: 477.9] Leslye Butcher MD, [facility] CPT-4: 50706 02/19/2015 Plan of Care Planned Activity Notes Codes Status Date Appointment: Mady Dunne [facility]el[facility] [facility] - Annual Wellness Visit 08/10/2018 Patient Education: Patient Medication Summary Completed 08/10/2018 Appointment: Lesley Butcher WPtel: [facility] (15 min) Moderate 07/26/2018 Patient Education: Patient Medication Summary Completed 07/26/2018 Appointment: Injection 07/05/2018 Patient Education: Patient Medication Summary Completed 07/05/2018 Appointment: Lesley Butcher WPtel: [facility] (15 min) Moderate 06/12/2018 Patient Education: Patient Medication Summary Completed 06/12/2018 Appointment: Lesley Butcher WPtel: [phone] [facility] [place] (30 min) Complex 05/10/2018 Patient Education: Patient Medication Summary Completed 05/10/2018 Appointment: Les[facility] Butcher [facility]el[phone] [facility] [place] (15 min) Moderate 03/27/2018 Patient Education: Patient Medication Summary Completed 03/27/2018 Appointment: Nurse Visit 01/25/2018 Patient Education: Patient Medication Summary Completed 01/25/2018 Appointment: Lesley Butcher WPtel: [phone] [facility] [place] (15 min) Moderate 01/24/2018 Patient Education: Patient Medication Summary Completed 01/24/2018 Appointment: [facility]ne [facility] [phone] [facility] [place] (30 min) Complex 12/08/2017 Patient Education: Patient Medication Summary Completed 12/08/2017 Appointment: Lesley Butcher [facility]Ptel[facility] [phone] [facility] [place] (15 min) Moderate 10/27/2017 Patient Education: Patient Medication Summary Completed 10/27/2017 Referral: External, Ordering Provider Referral Initiated 10/12/2017 Appointment: Lesley Butcher [facility]Ptel[facility] [phone] [facility] [place] (15 min) Moderate 09/29/2017 Patient Education: Patient Medication Summary Completed 09/29/2017 Care Plan: Referral Order SNOMED-CT : [id number] Pending 09/29/2017 Appointment: Lesley Butcher [facility]Ptel[facility] [phone] [facility] [place] (15 min) Moderate 09/01/2017 Patient Education: Patient Medication Summary Completed 09/01/2017 Care Plan: Referral Order SNOMED-CT : [id number] Pending 09/01/2017 Appointment: [facility]ne [facility]el[facility] [phone] [facility] [place] [facility] - Welcome to Medicare visit 08/03/2017 Patient Education: Patient Medication Summary Completed 08/03/2017 Appointment: Lesley Butcher WPtel: [phone] [facility] [place] (15 min) Moderate 04/26/2017 Patient Education: Patient Medication Summary Completed 04/26/2017 Appointment: Lesley Butcher WPtel: [phone] [facility] [place] (30 min) Complex 01/25/2017 Patient Education: Patient Medication Summary Completed 01/25/2017 Patient Education: Patient Medication Summary Completed 01/03/2017 Care Plan: Total Psa Pending 01/03/2017 Care Plan: Tsh Pending 01/03/2017 Care Plan: Lipid Pending 01/03/2017 Care Plan: Cbc With Differential Pending 01/03/2017 Care Plan: Comp Metabolic Pending 01/03/2017 Appointment: Lesley Butcher WPtel: [phone] [facility] [place] (15 min) Moderate 10/26/2016 Patient Education: Patient Medication Summary Completed 10/26/2016 Appointment: Lesley Butcher WPtel: [phone] [facility] [place] (15 min) Moderate 09/27/2016 Patient Education: Patient Medication Summary Completed 09/27/2016 Appointment: Lesley Butcher [facility]Ptel: [phone] [facility] (15 min) Moderate 06/28/2016 Patient Education: Patient Medication Summary Completed 06/28/2016 Patient Education: Patient Medication Summary Completed 04/27/2016 Appointment: [facility] [phone] [facility] [place] (30 min) Complex 02/17/2016 Patient Education: Patient Medication Summary Completed 02/17/2016 Appointment: (30 min) Complex 01/20/2016 Patient Education: Patient Medication Summary Completed 01/20/2016 Appointment: (30 min) Complex 01/06/2016 Patient Education: Patient Medication Summary Completed 01/06/2016 Patient Education: Hypertension Completed 01/06/2016 Appointment: (30 min) Complex 12/16/2015 Patient Education: Patient Medication Summary Completed 12/16/2015 Appointment: Guadalupe[place]ley WPtel[facility] [phone] [facility] (15 min) Moderate 12/04/2015 Appointment: [place], Lesley WPtel: [phone] [facility] (15 min) Moderate 12/02/2015 Appointment: (15 min) Moderate 11/27/2015 Patient Education: Patient Medication Summary Completed 11/27/2015 Appointment: Lesley Butcher WPtel: [phone] [facility] (15 min) Moderate 07/30/2015 Patient Education: Patient Medication Summary Completed 07/30/2015 Patient Education: Hypertension Completed 07/30/2015 Appointment: (15 min) Moderate 06/09/2015 Patient Education: Patient Medication Summary Completed 06/09/2015 Appointment: Lesley Butcher WPtel: [facility] [place] (15 min) Moderate 04/29/2015 Patient Education: Patient Medication Summary Completed 04/29/2015 Patient Education: Hypertension Completed 04/29/2015 Patient Education: Patient Medication Summary Completed 02/19/2015 Patient Education: Hypertension Completed 02/19/2015 Referral: External, Ordering Provider Referral Appointment Requested Referral: [facility] 09/12 Referral info faxed Appointment Requested Referral: [facility] Referral Appointment Requested Instructions No Instructions
--- OUTSIDE RECORDS SUMMARY | 2018-12-19 12:55 | XMS REPORT | CCD ---
Author Author [facility] Organization [facility] Address [address] [place] [address] Phone Care Team Providers Care Plant Operations Coordinator Name Role Phone PP Unavailable CCM Unavailable Summary Purpose Interface Exchange Insurance Providers Payer name Policy type / Coverage type Covered republican ID Effective Begin Date Effective End Date WPS Medicare Part B Medicare Part B [id number] 2018 Unknown [facility] Medicare Part B [id number] 2018 Unknown Family history Father Diagnosis Age At Onset Hypertension Unknown Coronary Artery Disease Unknown Sister Diagnosis Age At Onset Heart disease Unknown Mother Diagnosis Age At Onset Coronary Artery Disease Unknown Hypertension Unknown Social History Social History Element Codes Description Effective Dates Marital status Unknown 02/19/2015 Number of children Unknown 2 02/19/2015 Employment Unknown Retired 02/19/[address]: 859995005 Has never smoked or chewed tobacco 02/19/2015 Alcohol history Unknown occasionally drinks alcohol 02/19/2015 Allergies, Adverse Reactions, Alerts Substance Reaction Codes Entered Date Inactivated Date Status bactrim RxNorm: 669508 12/19/2015 No Inactive Date Active ciprofloxacin RxNorm: 97756 02/18/2015 No Inactive Date Active Past Medical History Illness Codes Condition Status Onset Date Resolved Date Diverticulosis of large intestine without perforation or abscess with bleeding ICD-9: 562.12 ICD-10: K57.31 Active 05/10/2018 Unknown 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 ICD-10: 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 Active 04/26/2016 Unknown Weakness ICD-9: 780.79 ICD-10: R53.1 Active 12/15/2015 Unknown Essential (primary) hypertension ICD-9: 401.1 ICD-10: I10 Active 06/27/2016 Unknown Major depressive disorder, recurrent, mild ICD-9: [...] ICD-9: 787.23 ICD-10: R13.13 Active 09/29/2017 Unknown Encounter for general adult medical examination with abnormal findings ICD-9: V70.0 ICD-10: Z00.01 Active 08/03/2017 Unknown Urge incontinence ICD- 9: 788.31 ICD-10: N39.41 Active 09/27/2016 Unknown Encounter for immunization ICD-9: V04.81 ICD-10: Z23 Active 06/27/2016 Unknown Laceration without foreign body of left forearm, initial encounter ICD-9: 881.00 ICD-10: S51.812A Active 06/27/2016 Unknown Laceration without foreign body of right forearm, initial encounter ICD-9: 881.00 ICD-10: S51.811A Active 06/27/2016 Unknown Idiopathic gout, left ankle [...] Problems Condition Codes Effective Dates Condition Status Diverticulosis of large intestine without perforation or abscess with bleeding ICD-9: 562.12 ICD-10: K57.31 05/10/2018 Active 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 ICD-10: D50.8 04/26/2016 Active Weakness ICD-9: 780.79 ICD-10: R53.1 12/15/2015 Active Essential (primary) hypertension ICD-9: 401.1 ICD-10: I10 06/27/2016 Active Major depressive disorder, recurrent, mild ICD-9: [...] phase ICD-9: 787.23 ICD-10: R13.13 09/29/2017 Active Encounter for general adult medical examination with abnormal findings ICD-9: V70.0 ICD-10: Z00.01 08/03/2017 Active Urge incontinence ICD- 9: 788.31 ICD-10: N39.41 09/27/2016 Active Encounter for immunization ICD-9: V04.81 ICD-10: Z23 06/27/2016 Active Laceration without foreign body of left forearm, initial encounter ICD-9: 881.00 ICD-10: S51.812A 06/27/2016 Active Laceration without foreign body of right forearm, initial encounter ICD-9: 881.00 ICD-10: S51.811A 06/27/2016 Active Idiopathic gout, left ankle and [...] Fill Instructions clonazepam 1 mg tablet RxNorm: 852586 1/2 Tablet(s) TAKE ONE TABLET BY MOUTH ONCE DAILY AT BEDTIME AND ONE TABLET THREE TIMES DAILY NEEDED 05/24/2018 07/22/2018 Active citalopram 40 mg tablet RxNorm: 267303 1/2 Tablet(s) TAKE ONE TABLET BY MOUTH ONCE DAILY 05/24/2018 02/17/2019 Active losartan 50 mg tablet RxNorm: 136205 1/2 Tablet(s) PO daily 05/2018 No Stop Date Active spironolactone 25 mg tablet RxNorm: 434747 TAKE ONE TABLET BY MOUTH ONCE DAILY 05/22/2018 No Stop Date Active dexamethasone 0.5 mg tablet RxNorm: 570984 TAKE ONE TABLET BY MOUTH ONCE DAILY 02/21/2018 No Stop Date Active Flomax 0.4 mg capsule RxNorm: 563613 TAKE ONE CAPSULE BY MOUTH ONCE DAILY IN THE EVENING 12/19/2017 No Stop Date Active Tamiflu 75 mg capsule RxNorm: 880168 1 Capsule(s) PO BID 201712/12/2017 Inactive clonazepam 1 mg tablet RxNorm: 693543 Tablet(s) TAKE ONE TABLET BY MOUTH ONCE DAILY AT BEDTIME AND ONE TABLET THREE TIMES DAILY NEEDED 11/28/2017 01/26/2018 Inactive pantoprazole 40 mg tablet,delayed release RxNorm: 258986 TAKE ONE TABLET BY MOUTH ONCE DAILY AT BEDTIME 11/07/2017 No Stop Date Active allopurinol 100 mg tablet RxNorm: 298406 TAKE ONE TABLET BY MOUTH ONCE DAILY 10/03/2017 No Stop Date Active pantoprazole 40 mg tablet,delayed release RxNorm: 631881 1 Tablet(s) PO BID 09/01/2017 05/28/2018 Inactive Vitamin B-6 100 mg tablet RxNorm: 454950 1 Tablet(s) PO daily 09/01/2017 No Stop Date Active dutasteride 0.5 mg capsule RxNorm: 282042 1 Capsule(s) PO QPM 09/01/2017 08/26/2018 Active spironolactone 25 mg tablet RxNorm: 469434 TAKE ONE TABLET BY MOUTH ONCE DAILY 08/15/2017 05/21/2018 Inactive citalopram 40 mg tablet RxNorm: 512922 TAKE ONE TABLET BY MOUTH ONCE DAILY 08/08/2017 05/04/2018 Inactive dexamethasone 0.5 mg tablet RxNorm: 294110 TAKE ONE TABLET BY MOUTH ONCE DAILY 08/08/2017 11/05/2017 Inactive clonazepam 1 mg tablet RxNorm: 138010 TAKE ONE TABLET BY MOUTH ONCE DAILY AT BEDTIME AND ONE THREE TIMES DAILY NEEDED 05/12/2017 08/08/2017 Inactive clonazepam 1 mg tablet RxNorm: 422374 1 Tablet(s) PO QHS AND 1 TAB PO TID PRN 05/12/2017 05/13/2017 Inactive oxybutynin chloride ER 10 mg tablet,extended release 24 hr RxNorm: 771663 1 Tablet (s) PO daily 04/29/2017 08/02/2017 Inactive dexamethasone 0.5 mg tablet RxNorm: 979922 TAKE ONE TABLET BY MOUTH ONCE DAILY 02/14/2017 04/14/2017 Inactive Flomax 0.4 mg capsule RxNorm: 778815 TAKE ONE CAPSULE BY MOUTH ONCE DAILY IN THE EVENING 02/14/2017 11/10/2017 Inactive pantoprazole 40 mg tablet,delayed release RxNorm: 962146 TAKE ONE TABLET BY MOUTH ONCE DAILY AT BEDTIME 02/14/20172016 Inactive oxybutynin chloride ER 10 mg tablet,extended release 24 hr RxNorm: 497731 1 Tablet (s) PO daily 01/25/2017 04/24/2017 Inactive dexamethasone 0.5 mg tablet RxNorm: 762766 TAKE ONE TABLET BY MOUTH ONCE DAILY 11/10/2016 12/09/2016 Inactive oxybutynin chloride ER 5 mg tablet,extended release 24 hr RxNorm: 549545 1 Tablet( s) PO daily 10/28/2016 10/27/2016 Inactive oxybutynin chloride ER 5 mg tablet,extended release 24 hr RxNorm: 614879 1 Tablet( s) PO daily 10/28/2016 01/24/2017 Inactive Detrol LA 2 mg capsule,extended release RxNorm: 275504 1 Capsule(s) PO QPM 10/26/2016 10/27/2016 Inactive clonazepam 1 mg tablet RxNorm: 496447 1 Tablet(s) PO QHS AND 1 TAB PO TID PRN 10/20/2016 04/17/2017 Inactive dexamethasone 0.5 mg tablet RxNorm: 884522 TAKE ONE TABLET BY MOUTH ONCE DAILY 10/06/2016 11/04/2016 Inactive allopurinol 100 mg tablet RxNorm: 287490 1 Tablet(s) PO daily 09/30/2016 09/24/2017 Inactive Vesicare 5 mg tablet RxNorm: 869676 1 Tablet(s) PO QPM 201512/12/2016 Inactive spironolactone 25 mg tablet RxNorm: 858430 1 Tablet(s) PO daily 08/06/2016 07/31/2017 Inactive citalopram 40 mg tablet RxNorm: 896707 1 Tablet(s) PO daily 09/201606/22/2017 Inactive Plavix 75 mg tablet RxNorm: 828814 1 Tablet(s) PO daily 2015 No Stop Date Active iron ER 159 mg (45 mg iron) tablet,extended release RxNorm: 578839 1 Tablet(s) PO daily 04/27/2016 08/31/2017 Inactive dexamethasone 0.5 mg tablet RxNorm: 688865 1/2 Tablet(s) PO daily 04/27/2016 02/20/2018 Inactive allopurinol 100 mg tablet RxNorm: 270603 1 Tablet(s) PO daily 04/27/2016 09/29/2016 Inactive clonazepam 1 mg tablet RxNorm: 828598 1 Tablet(s) PO QHS and 1 tab po TID prn 04/14/2016 10/07/2016 Inactive allopurinol 100 mg tablet RxNorm: 810051 1 Tablet(s) PO daily 02/17/2016 04/26/2016 Inactive citalopram 20 mg tablet RxNorm: 309787 1 Tablet(s) PO daily 02/201606/27/2016 Inactive Flomax 0.4 mg capsule RxNorm: 210340 1 Capsule(s) PO QPM 201501/13/2017 Inactive [SAVINGS FOR NON-COVERED DRUGS -- BIN:053020, PCN: ASPROD1, Group: XXXXX, ID # XXXXXXX, Questions: . THIS IS NOT INSURANCE.] pantoprazole 40 mg tablet,delayed release RxNorm: 838430 1 Tablet(s) PO QHS 01/20/2016 01/13/2017 Inactive Colcrys 0.6 mg tablet RxNorm: 397898 1 Tablet(s) PO daily 201503/05/2016 Inactive take daily x 7 days then daily as needed for gout flair colchicine 0.6 mg tablet RxNorm: 177379 1 Tablet(s) PO BID 01/01/2016 Inactive doxycycline hyclate 100 mg tablet RxNorm: 015084 1 Tablet(s) PO BID 12/19/2015 12/28/2015 Inactive doxycycline hyclate 100 mg tablet RxNorm: 897401 1 Tablet(s) PO BID 12/19/2015 12/18/2015 Inactive allopurinol 100 mg tablet RxNorm: 676372 1 Tablet(s) PO daily 12/16/2015 02/16/2016 Inactive colchicine 0.6 mg tablet RxNorm: 002944 Tablet(s) PO 1.2 mg PO in the morning and 0.6 mg at night for 2 days. 12/16/2015 Inactive allopurinol 100 mg tablet RxNorm: 493355 1 Tablet(s) PO daily 12/16/2015 12/15/2015 Inactive Protonix 40 mg tablet,delayed release RxNorm: 968923 1 Tablet(s) PO daily 12/16/2015 01/14/2016 Inactive Bactrim DS 800 mg-160 mg tablet RxNorm: 254162 1 Tablet(s) PO BID 12/16/2015 12/18/2015 Inactive colchicine 0.6 mg tablet RxNorm: 597688 Tablet(s) PO 1.2 mg for the first dose and 0.6 mg an hour after 12/15/20152015 Inactive dexamethasone 0.5 mg tablet RxNorm: 387180 1 Tablet(s) PO 12/1202/09/2016 Inactive Plavix 75 mg tablet RxNorm: 500456 1 Tablet(s) PO every other day 12/12/2015 04/09/2016 Inactive nitroglycerin 0.4 mg sublingual tablet RxNorm: 845833 1 Tablet(s) SL x3 in 15 min as needed 12/12/2015 04/26/2016 Inactive clonazepam 1 mg tablet RxNorm: 533833 1 Tablet(s) PO QHS and 1 tab po TID prn 12/11/2015 12/03/2016 Inactive [place] 5 mg-325 mg tablet RxNorm: 952229 1-2 Tablet(s) PO Q6 as needed 12/11/2015 09/26/2016 Inactive clonazepam 1 mg tablet RxNorm: 529479 1 Tablet(s) PO QHS and 1 tab po TID prn 12/04/2015 12/10/2015 Inactive Flomax 0.4 mg capsule RxNorm: 739130 1 Capsule(s) PO QPM 12/07/ 2015 01/19/2016 Inactive [SAVINGS FOR NON-COVERED DRUGS -- BIN:283289, PCN: ASPROD1, Group: XXXXX, ID # XXXXXXX, Questions: . THIS IS NOT INSURANCE.] Flomax 0.4 mg capsule RxNorm: 523341 1 Capsule(s) PO QPM 201409/21/2015 Inactive [SAVINGS FOR NON-COVERED DRUGS -- BIN:485583, PCN: ASPROD1, Group: XXXXX, ID # XXXXXXX, Questions: . THIS IS NOT INSURANCE.] clonazepam 1 mg tablet RxNorm: 789064 1 Tablet(s) PO QHS 201412/03/2015 Inactive coenzyme Q10 10 mg tablet RxNorm: 410069 1 Tablet(s) PO daily 07/30/2015 01/05/2016 Inactive spironolactone 25 mg tablet RxNorm: 191011 1 Tablet(s) PO daily 07/28/2015 07/21/2016 Inactive spironolactone 25 mg tablet RxNorm: 851792 1 Tablet(s) PO daily 07/22/2015 07/27/2015 Inactive clonazepam 1 mg tablet RxNorm: 204062 1 Tablet(s) PO QHS 201408/28/2015 Inactive losartan 25 mg tablet RxNorm: 727917 1 Tablet(s) PO daily 201403/20/2015 Inactive Flonase Allergy Relief 50 mcg/actuation nasal spray, suspension RxNorm: 1 [place] NASAL BID 02/19/2015 04/26/2016 Inactive [SAVINGS FOR NON-COVERED DRUGS -- BIN:060629, PCN: ASPROD1, Group: XXXXX, ID# [id number], Questions: [phone]. THIS IS NOT INSURANCE.] Flomax 0.4 mg capsule RxNorm: 110041 1 Capsule(s) PO QPM 201409/15/2015 Inactive [SAVINGS FOR NON-COVERED DRUGS -- BIN:964787, PCN: ASPROD1, Group: XXXXX, ID # XXXXXXX, Questions: . THIS IS NOT INSURANCE.] citalopram 20 mg tablet RxNorm: 565378 1 Tablet(s) PO daily 03/201503/20/2015 Inactive atenolol 25 mg tablet RxNorm: 530015 1 Tablet(s) PO daily 201403/20/2015 Inactive Lipitor 20 mg tablet RxNorm: 709327 1 Tablet(s) PO daily 201403/20/2015 Inactive glucosamine HCl 1,500 mg tablet RxNorm: 558687 1 Tablet(s) with 1200 mg chrondroitin PO daily No Start Date Active krill oil oral RxNorm : 31349 oral No Start Date Active cetirizine 10 mg tablet RxNorm: 0924104 1 Tablet(s) PO daily No Start Date Active Vitamin B-12 1,000 mcg tablet RxNorm: 665774 6 Tablet(s) PO every other day No Start Date Active Aleve 220 mg tablet RxNorm: 946892 Tablet(s) PO as needed No Start Date Active Vitamin D3 1,000 unit capsule RxNorm: 871230 2 Capsule(s) PO daily No Start Date Active Centrum Complete oral RxNorm: 06055 oral No Start Date Active ranitidine 150 mg tablet RxNorm: 350378 1 Tablet(s) PO TID No Start Date 12/11/2015 Inactive [place] 5 mg-325 mg tablet RxNorm: 532248 1-2 Tablet(s) PO Q6 as needed No Start Date 12/10/2015 Inactive Vitamin B-6 100 mg tablet RxNorm: 836746 1 Tablet(s) PO TID No Start Date 08/31/2017 Inactive spironolactone 25 mg tablet RxNorm: 826237 1 Tablet(s) PO daily No Start Date 07/21/2015 Inactive Vitamin D3 oral RxNorm : 2418 oral No Start Date 02/17/2016 Inactive clonazepam 1 mg tablet RxNorm: 615091 1 Tablet(s) PO daily No Start Date 05/22/2015 Inactive Glucosamine oral RxNorm: 4845 oral No Start Date 04/26/2016 Inactive losartan 50 mg tablet RxNorm: 345171 1 Tablet(s) PO daily No Start Date 05/23/2018 Inactive Plavix 75 mg tablet RxNorm: 503445 1 Tablet(s) PO every other day No Start Date 12/11/2015 Inactive Osteo Bi-Flex oral RxNorm: 4789650 oral No Start Date 09/01/2017 Inactive iron ER 159 mg (45 mg iron) tablet,extended release RxNorm: 629461 1 Tablet(s) PO BID No Start Date 04/26/2016 Inactive amlodipine 5 mg tablet RxNorm: 595892 1 Tablet(s) PO daily No Start Date 01/05/2016 Inactive aspirin 81 mg tablet,delayed release RxNorm: 370903 1 Tablet(s) PO daily No Start Date 05/09/2018 Inactive dexamethasone 0.5 mg tablet RxNorm: 107213 1 Tablet(s) PO No Start Date 12/11/2015 Inactive colchicine 0.6 mg tablet RxNorm: 584798 Tablet(s) PO 1.2 mg for the first dose and 0.6 mg an hour after No Start Date Inactive nitroglycerin 0.4 mg sublingual tablet RxNorm: 960262 1 Tablet(s) SL x3 in 15 min as needed No Start Date 12/11/2015 Inactive Fish Oil 1,000 mg capsule RxNorm: 1 Capsule(s) PO daily No Start Date 04/26/2016 Inactive Ecotrin Low Strength 81 mg tablet,enteric coated RxNorm: 0262796 1 Tablet(s) PO daily No Start Date 09/27/2016 Inactive Medication Administered No Medication Administered data Immunizations Vaccine Codes Date Status Influenza CVX: 141 08/01/2017 completed Pneumococcal CVX: 33 08/01/2017 completed Influenza CVX: 141 06/28/2016 completed Tetanus, Diptheria, Pertussis CVX: 113 completed Tetanus/Diptheria CVX: 113 06/28/2016 completed Pneumococcal Unknown 08/04/2015 completed Influenza CVX: 141 04/16/2014 completed Pneumococcal CVX: 33 05/15/2008 completed Assessments Condition Codes Effective Dates Weakness ICD-10: R53.1 ICD-9: 780.79 05/10/2018 Diverticulosis of large intestine without perforation or abscess with bleeding ICD-10: K57.31 ICD-9: 562.12 05/10/2018 Other iron 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 ICD-9: 280.1 05/10/2018 Essential (primary) hypertension ICD-10: I10 ICD-9: 401.1 03/27/2018 Major depressive disorder, recurrent, mild ICD-10: F33.0 [...] tract symptoms ICD-10: N40.1 ICD-9: 600.01 09/29/2017 Encounter for general adult medical examination with abnormal findings ICD-10: Z00.01 ICD-9: V70.0 08/03/2017 Urge incontinence ICD-10: N39.41 ICD-9: 788.31 01/25/2017 Benign prostatic hyperplasia without lower urinary tract symptoms ICD-10: N40.0 ICD-9: 600.00 01/03/2017 Encounter for immunization ICD-10: Z23 ICD-9: V04.81 06/28/2016 Laceration without foreign body of left forearm, [...] Visit Reason For Visit Effective Dates Notes Hospital Follow Up 05/10/2018 hypertension 03/27/2018 diarrhea [...] Result Date Cbc With Differential Ord2 WBC 6.19 K/ul [...] 29.7 pg 06/08/2018 Cbc With Differential Ord2 [place]% 8.7 % 06/08/2018 Cbc With Differential Ord2 [...] 2.14 K/ul 06/08/2018 Cbc With Differential Ord2 [place] ABS# 0.5 K/ul 06/08/2018 Cbc With Differential Ord2 Eos ABS# 0.2 K/ul 06/08/2018 Cbc With Differential Ord2 Baso ABS# 0.0 K/ul 06/08/2018 Cbc With Differential Ord2 WBC 5.58 K/ul 05/10/2018 Cbc With Differential Ord2 RBC 3.43 M/ul 05/10/2018 Cbc With Differential Ord2 HGB 10.5 g/dl 05/10/2018 Cbc With Differential Ord2 HCT 31.1 % 05/10/2018 Cbc With Differential Ord2 Neut% 55.1 % 05/10/2018 Cbc With Differential Ord2 Lymph% 34.8 % 05/10/2018 Cbc With Differential Ord2 MCV 90.7 fl 05/10/2018 Cbc With Differential Ord2 MCH 30.6 pg 05/10/2018 Cbc With Differential Ord2 Tate% 6.5 % 05/10/2018 Cbc With Differential Ord2 Eos% 3.2 % 05/10/2018 Cbc With Differential Ord2 MCHC 33.8 pg 05/10/2018 Cbc With Differential Ord2 PLT 330 K/ul 05/10/2018 Cbc With Differential Ord2 Baso% 0.4 % 05/10/2018 Cbc With Differential Ord2 Neut ABS# 3.08 K/ul 05/10/2018 Cbc With Differential Ord2 RDW 14.5 % 05/10/2018 Cbc With Differential Ord2 Lymph ABS# 1.94 K/ul 05/10/2018 Cbc With Differential Ord2 [place] ABS# 0.4 K/ul 05/10/2018 Cbc With Differential [...] Ord30 C/HDL 4.2 Ratio 01/26/2018 Comp Metabolic Jtd620 NA 138 mEq/L 01/26/2018 Comp Metabolic Tpi480 K 4.2 mEq/L 01/26/2018 Comp Metabolic Kjt413 CL 105 mEq/L 01/26/2018 Comp Metabolic Qex122 CO2 23.0 mEq/L 01/26/2018 Comp Metabolic Ape659 ANION GAP 14 01/26/2018 Comp Metabolic Xkv697 GLUCOSE 89 mg/dL 01/26/2018 Comp Metabolic Pkw711 Creat 1.1 mg/dL 01/26/2018 Comp Metabolic Zvx554 eGFR 70 ml/min/1.73m2 01/26/2018 Comp Metabolic Sei813 BUN 18 mg/dL 01/26/2018 Comp Metabolic Kaj407 B/C Ratio 16.8 Ratio 01/26/2018 Comp Metabolic Xll483 CALCIUM 9.2 mg/dL 01/26/2018 Comp Metabolic Nmx306 ALK PHOS 67 U/L 01/26/2018 Comp Metabolic Eoc279 AST(SGOT) 31 U/L 01/26/2018 Comp Metabolic Ota365 ALT(SGPT) 23 U/L 01/26/2018 Comp Metabolic Wvx546 BILI T 1.7 mg/dL 01/26/2018 Comp Metabolic Agk429 ALBUMIN 3.9 g/dL 01/26/2018 Comp Metabolic Hxa150 TPRO 6.7 g/dL 01/26/2018 Comp Metabolic Lji195 GLOB 2.8 g/dL 01/26/2018 Comp Metabolic Xsf714 A/G Ratio 1.4 Ratio 01/26/2018 Comp Metabolic Xwo495 Osmo 277 mOsmo 01/26/2018 Cbc With Differential [...] 90.7 fl 01/26/2018 Cbc With Differential Ord2 Tate% 7.1 % 01/26/2018 Cbc With Differential Ord2 MCH 30.7 pg 01/26/2018 Cbc With Differential Ord2 Eos% 2.3 % 01/26/2018 Cbc With Differential Ord2 MCHC 33.9 pg 01/26/2018 Cbc With Differential Ord2 PLT 217 K/ul 01/26/2018 Cbc With Differential Ord2 Baso% 0.2 % 01/26/2018 Cbc With Differential Ord2 RDW 15.1 % 01/26/2018 Cbc With Differential Ord2 Neut ABS# 3.61 K/ul 01/26/2018 Cbc With Differential Ord2 Lymph ABS# 2.40 K/ul 01/26/2018 Cbc With Differential Ord2 [place] ABS# 0.5 K/ul 01/26/2018 Cbc With Differential Ord2 Eos ABS# 0.2 K/ul 01/26/2018 Cbc With Differential Ord2 Baso ABS# 0.0 K/ul 01/26/2018 Tsh Ord6 TSH (3rd IS) 1.81 uIU/mL 01/26/2018 Testosterone Bms891 Testo 370.3 ng/dL 01/26/2018 C A/B FLU 8094295 Influenza A Scr Negative 12/08/2017 C A/B FLU 4401561 Influenza B Scr Negative 12/08/2017 C A/B FLU 9702144 Influenza Intrp B AG: PRID:PT:NOSE:NOM:IF See Footnote [...] 89.6 fl 04/11/2017 Cbc With Differential Ord2 [place]% 8.1 % 04/11/2017 Cbc With Differential Ord2 MCH 30.8 pg 04/11/2017 Cbc With Differential Ord2 MCHC 34.4 pg 04/11/2017 Cbc With Differential Ord2 Eos% 3.0 % 04/11/2017 Cbc With Differential Ord2 PLT 183 K/ul 04/11/2017 Cbc With Differential Ord2 Baso% 0.2 % 04/11/2017 Cbc With Differential Ord2 Neut ABS# 3.69 K/ul 04/11/2017 Cbc With Differential Ord2 RDW 15.3 % 04/11/2017 Cbc With Differential Ord2 Lymph ABS# 1.91 K/ul 04/11/2017 Cbc With Differential Ord2 [place] ABS# 0.5 K/ul 04/11/2017 Cbc With Differential Ord2 Eos ABS# 0.2 K/ul 04/11/2017 Cbc With Differential Ord2 Baso ABS# 0.0 K/ul 04/11/2017 Comp Metabolic Foy219 NA 140 mEq/L 04/11/2017 Comp Metabolic Vci142 K 4.1 mEq/L 04/11/2017 Comp Metabolic Zqt709 CL 105 mEq/L 04/11/2017 Comp Metabolic Zdz106 CO2 26.0 mEq/L 04/11/2017 Comp Metabolic Xhq946 ANION GAP 13 04/11/2017 Comp Metabolic Qyg705 GLUCOSE 88 mg/dL 04/11/2017 Comp Metabolic Xbp913 Creat 1.1 mg/dL 04/11/2017 Comp Metabolic Wku032 eGFR 66 ml/min/1.73m2 04/11/2017 Comp Metabolic Yns226 BUN 18 mg/dL 04/11/2017 Comp Metabolic Wtv235 B/C Ratio 15.9 Ratio 04/11/2017 Comp Metabolic Hxa554 CALCIUM 9.0 mg/dL 04/11/2017 Comp Metabolic Rav518 ALK PHOS 72 U/L 04/11/2017 Comp Metabolic Mcj217 AST(SGOT) 22 U/L 04/11/2017 Comp Metabolic Pwd928 ALT(SGPT) 26 U/L 04/11/2017 Comp Metabolic Jek336 BILI T 1.0 mg/dL 04/11/2017 Comp Metabolic Iok812 ALBUMIN 4.0 g/dL 04/11/2017 Comp Metabolic Hct201 TPRO 6.4 g/dL 04/11/2017 Comp Metabolic Vaz218 GLOB 2.4 g/dL 04/11/2017 Comp Metabolic Heq927 A/G Ratio 1.6 Ratio 04/11/2017 Comp Metabolic Ahn432 Osmo 281 mOsmo 04/11/2017 Vitamin D 25 Oh Awp1247 VITAMIN D, 25 HYDROXY 65.52 ng/mL Cbc With Differential Ord2 WBC 5.81 K/ul 05/18/2016 Cbc With Differential Ord2 RBC 5.08 M/ul 05/18/2016 Cbc With Differential Ord2 HGB 14.5 g/dl 05/18/2016 Cbc With Differential Ord2 HCT 43.3 % 05/18/2016 Cbc With Differential Ord2 Neut% 58.5 % 05/18/2016 Cbc With Differential Ord2 Lymph% 31.0 % 05/18/2016 Cbc With Differential Ord2 MCV 85.2 fl 05/18/2016 Cbc With Differential Ord2 [place]% 7.2 % 05/18/2016 Cbc With Differential Ord2 MCH 28.5 pg 05/18/2016 Cbc With Differential Ord2 MCHC 33.5 pg 05/18/2016 Cbc With Differential Ord2 Eos% 3.1 % 05/18/2016 Cbc With Differential Ord2 PLT 222 K/ul 05/18/2016 Cbc With Differential Ord2 Baso% 0.2 % 05/18/2016 Cbc With Differential Ord2 RDW 15.8 % 05/18/2016 Cbc With Differential Ord2 Neut ABS# 3.40 K/ul 05/18/2016 Cbc With Differential Ord2 Lymph ABS# 1.80 K/ul 05/18/2016 Cbc With Differential Ord2 [place] ABS# 0.4 K/ul 05/18/2016 Cbc With Differential Ord2 Eos ABS# 0.2 K/ul 05/18/2016 Cbc With Differential Ord2 Baso ABS# 0.0 K/ul 05/18/2016 Magnesium Ord90 Mag 2.0 mg/dL 05/18/2016 Renal Ini091 NA 139 mEq/L 05/18/2016 Renal Yma430 K 4.0 mEq/L 05/18/2016 Renal Ydg660 CL 104 mEq/L 05/18/2016 Renal Wjc967 CO2 27.0 mEq/L 05/18/2016 Renal Atk923 ANION GAP 12 05/18/2016 Renal Zlu278 Osmo 279 mOsmo 05/18/2016 Renal Ekb642 GLUCOSE 91 mg/dL 05/18/2016 Renal Tzq181 BUN 18 mg/dL 05/18/2016 Renal Eai639 Creat 1.3 mg/dL 05/18/2016 Renal Nyx415 eGFR 59 ml/min/1.73m2 05/18/2016 Renal Ztn479 B/C Ratio 14.3 Ratio 05/18/2016 Renal Tlk723 CALCIUM 9.3 mg/dL 05/18/2016 Renal Zjx277 PHOS 3.2 mg/dL 05/18/2016 Renal Qpy030 ALBUMIN 4.2 g/dL 05/18/2016 Random Urine Protein/Creatinine Ratio Nlg3182 U Prot 15.0 mg/dl 05/18/2016 Random Urine Protein/Creatinine Ratio Drw0229 U CREAT 141.0 mg/dL 05/18/2016 Random Urine Protein/Creatinine Ratio Wgp4283 R MTP/Creat Ratio 0.11 05/18/2016 Urinalysis Ord28 [...] 28.5 pg 02/19/2016 Cbc With Differential Ord2 [place]% 9.5 % 02/19/2016 Cbc With Differential Ord2 Eos% 3.5 % 02/19/2016 Cbc With Differential Ord2 MCHC 33.2 pg 02/19/2016 Cbc With Differential Ord2 PLT 221 K/ul 02/19/2016 Cbc With Differential Ord2 Baso% 0.2 % 02/19/2016 Cbc With Differential Ord2 Neut ABS# 2.84 K/ul 02/19/2016 Cbc With Differential Ord2 RDW 16.4 % 02/19/2016 Cbc With Differential Ord2 Lymph ABS# 1.91 K/ul 02/19/2016 Cbc With Differential Ord2 [place] ABS# 0.5 K/ul 02/19/2016 Cbc With Differential Ord2 Eos ABS# 0.2 K/ul 02/19/2016 Cbc With Differential Ord2 Baso ABS# 0.0 K/ul 02/19/2016 Cbc With Differential Ord2 New Analyzer Notice Please note new ref ranges starting 10-29-2015 due to implemntation of new five part differential hematolgy analyzer. 02/19/2016 Tsh Ord6 hTSH II 2.10 uIU/mL 02/19/2016 Comp Metabolic Ckg701 NA 138 mEq/L 02/19/2016 Comp Metabolic Rzg385 K 3.8 mEq/L 02/19/2016 Comp Metabolic Mgh505 CL 103 mEq/L 02/19/2016 Comp Metabolic Bxl169 CO2 28.0 mEq/L 02/19/2016 Comp Metabolic Vnn417 ANION GAP 11 02/19/2016 Comp Metabolic Rgp227 GLUCOSE 94 mg/dL 02/19/2016 Comp Metabolic Ojx483 Creat 1.0 mg/dL 02/19/2016 Comp Metabolic Lky863 eGFR 75 ml/min/1.73m2 02/19/2016 Comp Metabolic Cqd061 BUN 18 mg/dL 02/19/2016 Comp Metabolic Mki484 B/C Ratio 17.6 Ratio 02/19/2016 Comp Metabolic Xls771 CALCIUM 9.6 mg/dL 02/19/2016 Comp Metabolic Ztf288 ALK PHOS 93 U/L 02/19/2016 Comp Metabolic Vou170 AST(SGOT) 23 U/L 02/19/2016 Comp Metabolic Btq837 ALT(SGPT) 19 U/L 02/19/2016 Comp Metabolic Jzm962 BILI T 0.8 mg/dL 02/19/2016 Comp Metabolic Ixr721 ALBUMIN 4.1 g/dL 02/19/2016 Comp Metabolic Xry059 TPRO 6.8 g/dL 02/19/2016 Comp Metabolic Pvs168 GLOB 2.7 g/dL 02/19/2016 Comp Metabolic Oli908 A/G Ratio 1.5 Ratio 02/19/2016 Comp Metabolic Pke605 Osmo 277 mOsmo 02/19/2016 Uric Acid Ord77 Uric A 6.0 mg/dL 02/19/2016 Total Psa Ord10 PSA 0.82 ng/mL 02/19/2016 Comp Metabolic Sob413 NA 140 mEq/L 12/16/2015 Comp Metabolic Ssk137 K 4.0 mEq/L 12/16/2015 Comp Metabolic Ksa264 CL 105 mEq/L 12/16/2015 Comp Metabolic Dtq855 CO2 24.0 mEq/L 12/16/2015 Comp Metabolic Lco084 ANION GAP 15 12/16/2015 Comp Metabolic Eqi112 GLUCOSE 85 mg/dL 12/16/2015 Comp Metabolic Huz875 Creat 1.2 mg/dL 12/16/2015 Comp Metabolic Cfk419 eGFR 65 ml/min/1.73m2 12/16/2015 Comp Metabolic Mfc867 BUN 14 mg/dL 12/16/2015 Comp Metabolic Hef494 B/C Ratio 12.1 Ratio 12/16/2015 Comp Metabolic Fng997 CALCIUM 9.1 mg/dL 12/16/2015 Comp Metabolic Ked524 ALK PHOS 162 U/L 12/16/2015 Comp Metabolic Hyn633 AST(SGOT) 14 U/L 12/16/2015 Comp Metabolic Ydn141 ALT(SGPT) 17 U/L 12/16/2015 Comp Metabolic Riz852 BILI T 1.0 mg/dL 12/16/2015 Comp Metabolic Ozu662 ALBUMIN 3.4 g/dL 12/16/2015 Comp Metabolic Hpb483 TPRO 6.2 g/dL 12/16/2015 Comp Metabolic Ytw010 GLOB 2.9 g/dL 12/16/2015 Comp Metabolic Let985 A/G Ratio 1.2 Ratio 12/16/2015 Comp Metabolic Sfc308 Osmo 279 mOsmo 12/16/2015 Uric Acid Ord77 [...] 29.9 % 12/16/2015 Cbc With Differential Ord2 Tate% 7.5 % 12/16/2015 Cbc With Differential Ord2 [...] 1.52 K/ul 12/16/2015 Cbc With Differential Ord2 Tate ABS# 0.4 K/ul 12/16/2015 Cbc With Differential [...] C/HDL 4.0 Ratio 07/21/2015 Urine Protein 24Hr Dms837 U Prot 5.1 mg/dl 05/16/2015 Urine Protein 24Hr Jgq006 U Prot24 71.5 mg/24hr 05/16/2015 Total Volume Urine Amw484 TV/24hr 1400 ml 05/16/2015 Cbc With Differential Ord2 WBC 5.1 [...] Differential Ord2 RDW 15.4 % 05/15/2015 Renal Mwx474 NA 135 mEq/L 05/15/2015 Renal Ubs035 K 3.9 mEq/L 05/15/2015 Renal Wbk612 CL 101 mEq/L 05/15/2015 Renal Awb177 CO2 27.0 mEq/L 05/15/2015 Renal Nyt097 ANION GAP 11 05/15/2015 Renal Rpg787 Osmo 274 mOsmo 05/15/2015 Renal Jib038 GLUCOSE 132 mg/dL 05/15/2015 Renal Lll572 BUN 19 mg/dL 05/15/2015 Renal Pdy533 Creat 1.1 mg/dL 05/15/2015 Renal Mlj940 eGFR 67 ml/min/1.73m2 05/15/2015 Renal Pzm648 B/C Ratio 17.0 Ratio 05/15/2015 Renal Npj417 CALCIUM 9.6 mg/dL 05/15/2015 Renal Cht613 PHOS 3.0 mg/dL 05/15/2015 Renal Ouy942 ALBUMIN 4.3 g/dL 05/15/2015 Total Psa Ord10 PSA 0.70 ng/mL 05/15/2015 Review of Systems System Result Effective Dates Constitutional No chills 05/10/2018 Constitutional No diaphoresis [...] lips 10/27/2017 None Full Exam - General 1995 Ears/Nose/Throat lips/teeth/gingiva Overall: normal dentition 10/27/2017 None Full Exam - General 1995 [...] redness 12/16/2015 None Full Exam - General 1995 Musculoskeletal lower extremity Inspection - foot: swelling [...] Date PPPS, SUBSEQ VISIT CPT -4: G0439 08/03/2017 ADMIN INFLUENZA VIRUS VAC CPT-4: G0008 06/28/2016 FLU VACC PRSV FREE INC ANTIG CPT-4: 41272 06/28/2016 TENIVAC TD VACCINE NO PRSRV 7/> IM CPT-4: 98010 06/28/2016 OCCULT BLOOD FECES CPT -4: 78173 02/19/2015 Vital Signs Date Vital 05/10/2018 Blood Pressure 1: 114/68 Code : 8480-6 BMI: 29.4 Code : 47417-0 Heart Rate 1 : 92 bpm Height: 6' SpO2: 97% Weight: 217 lbs 03/27/2018 Blood Pressure 1: 126/74 Code : 8480-6 BMI: 30.1 Code : 10575-0 Heart Rate 1 : 103 bpm Height: 6' SpO2: 96% Weight: 222 lbs 01/25/2018 Blood Pressure 1: 122/70 Code : 8480-6 Blood Pressure 2: 126/73 Code: 8480-6 Heart Rate 1: 63 bpm SpO2: 94% 01/24/2018 Blood Pressure 1: 110/72 Code : 8480-6 BMI: 29.7 Code : 04722-6 Heart Rate 1 : 88 bpm Height: 6' SpO2: 95% Weight: 219 lbs 12/08/2017 Blood Pressure 1: 120/68 Code : 8480-6 BMI: 30.0 Code : 58850-3 Heart Rate 1 : 91 bpm Height: 6' SpO2: 96% Temperature: 36.7 (C) / 98.1 (F) Weight: 221 lbs 10/27/2017 Blood Pressure 1: 124/76 Code : 8480-6 BMI: 30.1 Code : 52377-8 Heart Rate 1 : 69 bpm Height: 6' SpO2: 95% Weight: 222 lbs 09/29/2017 Blood Pressure 1: 118 Code : 8480-6 BMI: 29.9 Code : 26128-2 Heart Rate 1 : 81 bpm Height: 6' SpO2: 95% Weight: 220 lbs 8 oz 09/01/2017 Blood Pressure 1: 122/82 Code : 8480-6 BMI: 29.6 Code : 66486-8 Heart Rate 1 : 75 bpm Height: 6' SpO2: 97% Weight: 218 lbs 08/03/2017 Blood Pressure 1: 120/68 Code : 8480-6 Heart Rate 1: 68 bpm Height: 6' SpO2: 94% Waist Measure (cm): 97 cm 04/26/2017 Blood Pressure 1: 122/72 Code : 8480-6 BMI: 29.4 Code : 62781-9 Heart Rate 1 : 85 bpm Height: 6' SpO2: 92% Weight: 217 lbs 01/25/2017 Blood Pressure 1: 118/78 Code : 8480-6 BMI: 29.4 Code : 39606-0 Heart Rate 1 : 72 bpm Height: 6' SpO2: 94% Temperature: 36.9 (C) / 98.5 (F) Weight: 217 lbs 10/26/2016 Blood Pressure 1: 152/86 Code : 8480-6 BMI: 29.7 Code : 64181-7 Heart Rate 1 : 58 bpm Height: 6' Weight: 219 lbs 09/27/2016 Blood Pressure 1: 138/80 Code : 8480-6 BMI: 29.4 Code : 98223-3 Heart Rate 1 : 52 bpm Height: 6' SpO2: 98% Weight: 217 lbs 06/28/2016 Blood Pressure 1: 128/86 Code : 8480-6 BMI: 29.6 Code : 86903-2 Heart Rate 1 : 69 bpm Height: 6' SpO2: 93% Weight: 218 lbs 04/27/2016 Blood Pressure 1: 118/82 Code : 8480-6 BMI: 29.3 Code : 02571-2 Heart Rate 1 : 85 bpm Height: 6' SpO2: 98% Weight: 216 lbs 02/17/2016 Blood Pressure 1: 132/80 Code : 8480-6 BMI: 28.8 Code : 38861-2 Heart Rate 1 : 94 bpm Height: 6' SpO2: 98% Weight: 212 lbs 01/20/2016 Blood Pressure 1: 120/70 Code : 8480-6 BMI: 29.7 Code : 14616-1 Heart Rate 1 : 87 bpm Height: 6' SpO2: 92% Weight: 219 lbs 01/06/2016 Blood Pressure 1: 122/88 Code : 8480-6 BMI: 28.8 Code : 64342-2 Heart Rate 1 : 83 bpm Height: [...] Code : 8480-6 BMI: 30.5 Code : 55732-1 Heart Rate 1 : 82 bpm Height: 6' SpO2: 92% Weight: 225 lbs 06/09/2015 Blood Pressure 1: 130/76 Code : 8480-6 BMI: 31.1 Code : 56087-1 Heart Rate 1 : 65 bpm Height: 6' SpO2: 96% Weight: 229 lbs 04/29/2015 Blood Pressure 1: 118/78 Code : 8480-6 BMI: 30.7 Code : 00916-1 Heart Rate 1 : 70 bpm Height: 6' Weight: 226 lbs 02/19/2015 Blood Pressure 1: 118/70 Code : 8480-6 BMI: 29.7 Code : 90229-2 Heart Rate 1 : 68 bpm Height: 6' Weight: 219 lbs Functional Status No Functional Status data History of Present Illness Symptom Name Status Result Effective Date Notes Hospital Follow Up _ Other: GI bleed [...] data Encounters Encounter Performer Location Codes Date ([id number]) 64335 EST. PATIENT, LEVEL IV Diagnosis: Other iron deficiency anemias[ICD10: D50.8] Diagnosis: Weakness[ICD10: R53.1] Diagnosis: Diverticulosis of large intestine without perforation or abscess with bleeding[ICD10: K57.31] Lesley Butcher MD, [facility] CPT-4: 67527 05/10/2018 ([id number]) 86402 EST. PATIENT, LEVEL IV Diagnosis: Essential (primary) hypertension[ICD10: I10] Diagnosis: Major depressive disorder, recurrent, mild[ICD10: F33.0] Diagnosis: Sensorineural hearing loss, bilateral[ICD10: H90.3] [facility] CPT-4: 68768 03/27/2018 ([id number]) Miscellaneous no charge Diagnosis: Essential (primary) hypertension[ICD10: I10] Mady Butcher MD, [facility] CPT-4: 25898 01/25/2018 ([id number]) 87117 EST. PATIENT, LEVEL IV Diagnosis: Essential (primary) hypertension[ICD10: I10] Diagnosis: Sensorineural hearing loss, bilateral[ICD10: H90.3] Diagnosis: Mixed hyperlipidemia[ICD10: E78.2] Diagnosis: Major depressive disorder, recurrent, mild[ICD10: F33.0] Lesley Butcher MD [facility] CPT-4: 10817 01/24/2018 83905 EST. PATIENT, LEVEL IV Diagnosis: Other malaise[ICD10: R53.81] Diagnosis: Fever, unspecified[ICD10: R50.9] Mady Butcher MD, [facility] CPT- 4: 91087 12/08/2017 ([id number]) 24159 EST. PATIENT, LEVEL III Diagnosis: Essential (primary) hypertension[ICD10: I10] Lesley Butcher MD [facility] CPT-4: 57316 10/27/2017 ([id number]) 94873 EST. PATIENT, LEVEL III Diagnosis: Benign prostatic hyperplasia with lower urinary tract symptoms[ICD10 : N40.1] Diagnosis: Dysphagia, pharyngeal phase[ICD10: R13.13] Lesley Butcher MD [facility] CPT-4: 99582 09/29/2017 ([id number]) 10899 EST. PATIENT, LEVEL IV Diagnosis: Essential (primary) hypertension[ICD10: I10] Diagnosis: Major depressive disorder, recurrent, mild[ICD10: F33.0] Diagnosis: Sensorineural hearing loss, bilateral[ICD10: H90.3] Lesley Butcher MD, [facility] CPT-4: 21851 09/01/2017 ([id number]) 89498 EST. PATIENT, LEVEL IV Diagnosis: Essential (primary) hypertension[ICD10: I10] Diagnosis: Major depressive disorder, recurrent, mild[ICD10: F33.0] Diagnosis: Mixed hyperlipidemia[ICD10: E78.2] Lesley Butcher MD, [facility] CPT-4: 34445 04/26/2017 ([id number]) 30025 EST. PATIENT, LEVEL IV Diagnosis: Essential (primary) hypertension[ICD10: I10] Diagnosis: Major depressive disorder, recurrent, mild[ICD10: F33.0] Diagnosis: Urge incontinence[ICD10: N39.41] Lesley Butcher MD, [facility] CPT-4: 38151 01/25/2017 [id number]) 40914 EST. PATIENT, LEVEL IV Diagnosis: Essential (primary) hypertension[ICD10: I10] Diagnosis: Major depressive disorder, recurrent, mild[ICD10: F33.0] Diagnosis: Urge incontinence[ICD10: N39.41] Lesley Butcher MD, [facility] CPT-4: 70043 10/26/2016 [id number]) 34598 EST. PATIENT, LEVEL III Diagnosis: Essential (primary) hypertension[ICD10: I10] Diagnosis: Major depressive disorder, recurrent, mild[ICD10: F33.0] Diagnosis: Urge incontinence[ICD10: N39.41] Lesley Butcher MD, [facility] CPT-4: 64296 09/27/2016 [id number]) 68927 EST. PATIENT, LEVEL IV Diagnosis: Essential (primary) hypertension[ICD10: I10] Diagnosis: Encounter for immunization[ICD10: Z23] Diagnosis: Laceration without foreign body of left forearm, initial encounter[ ICD10: S51.812A] Diagnosis: Laceration without foreign body of right forearm, initial encounter[ ICD10: S51.811A] Diagnosis: Major depressive disorder, recurrent, mild[ICD10: F33.0] Lesley Butcher MD, [facility] CPT-4: 85700 06/28/2016 [id number]) 95123 EST. 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 PATIENT, LEVEL IV Diagnosis: Weakness[ICD10: R53.1] Diagnosis: Gout, unspecified[ICD10: M10.9] Diagnosis: Hypotension, unspecified[ICD10: I95.9] Lesley Butcher MD, [facility] CPT-4: 67230 12/16/2015 ([id number]) Patient admitted to the hospital from clinic (NO CHARGE) Diagnosis: Hypoxemia[ICD10: R09.02] Diagnosis: Weakness[ICD10: R53.1] Diagnosis: Dyspnea, unspecified[ICD10: R06.00] Mady Butcher MD, [facility] CPT-4: 27513S 11/27/2015 ([id number]) 37867 EST. PATIENT, LEVEL III Diagnosis: Essential (primary) hypertension[ICD10: I10] Diagnosis: Gastro-esophageal reflux disease without esophagitis[ICD10: K21.9] Lesley Butcher MD, [facility] CPT-4: 86104 07/30/2015 ([id number]) 54616 EST. PATIENT, LEVEL III Diagnosis: ESSENTIAL HYPERTENSION[ICD9: 401.9] Merline Butcher MD, [facility] CPT-4: 25808 06/09/2015 ([id number]) 73146 EST. PATIENT, LEVEL III Diagnosis: ESSENTIAL HYPERTENSION[ICD9: 401.9] [facility] CPT-4: 85692 04/29/2015 ([id number]) OFFICE/OUTPATIENT VISIT NEW Diagnosis: ESSENTIAL HYPERTENSION[ICD9: 401.9] Diagnosis: DEPRESSIVE DISORDER NEC[ICD9: 311] Diagnosis: Enlarged prostate[ICD9: 600.00] Diagnosis: Nasal inflammation due to allergen[ICD9: 477.9] [facility] CPT-4: 54691 02/19/2015 Plan of Care Planned Activity Notes Codes Status Date Visit Plan: Diverticulosis with recent GI bleeding - improved - continue with supportive care, avoid foods which cause any abdominal pain - monitor symptoms - call if any pain or bleeding recurs. Anemia - check labs today. Weakness - continue with increasing of activity. 05/10/2018 Appointment: Lesley Butcher WPtel: [phone] [facility] (30 min) Complex 05/10/2018 Patient Education: Patient [...] cochlear implant. 03/27/2018 [phone] ([facility] min) Moderate 03/27/2018 Patient Education: Patient [...] medications. 01/24/2018 Appointment: Lesley Butcher WPtel: [phone] [facility] (15 min) Moderate 01/24/2018 Patient Education: Patient Medication Summary Completed 01/24/2018 Visit Plan: Influenza - pt started on tamiflu - pt to start on anti-inflammatories, tylenol and monitor symptoms. Pt to call if not improving. Pt to alert any close contacts as to illness. 12/08/2017 App[facility]ment[phone] [facility] ([facility] min) Complex 12/08/2017 Patient Education: [...] at home. 10/27/2017 Appointment: [phone] [facility] (15 min) Moderate 10/27/2017 Patient Education: Patient Medication Summary Completed 10/27/2017 Referral: External, Ordering Provider Referral Initiated 10/12/2017 Visit Plan: BPH - continue with dutasteride and flomax Dysphagia - referral to Dr. Kumar for EGD - question stricture - dysphagia intermittently - hx of stricture. 09/29/2017 Appointment: [phone] [id number] (15 min) Moderate 09/29/2017 Patient Education: Patient Medication Summary Completed 09/29/2017 Care Plan: Referral Order SNOMED-CT : [id number] Pending 09/29/2017 Visit Plan: Hypertension - well [...] recommended patient to have an evaluation at [facility] to see if he has potential for cochlear implant. 09/01/2017 Appointment: Lesley Butcher WPtel: [facility] (15 min) Moderate 09/01/2017 Patient Education: Patient Medication Summary Completed 09/01/2017 Care Plan: Referral Order SNOMED-CT : [id number] Pending 09/01/2017 Visit Plan: Medicare Exam - [...] surrogate. 08/03/2017 Appointment: [facility] Dunne [facility]Ptel[phone] [facility] [facility] - Welcome to Medicare visit [...] medications. 04/26/2017 Appointment: [phone] [facility] (15 min) Moderate 04/26/2017 Patient Education: [...] 10mg daily. 01/25/2017 Appointment: [phone] [facility] (30 min) Complex 01/25/2017 Patient Education: [...] detrol [place] 10/26/2016 Appointment: Lesley Butcher WPtel: [phone] [facility] (15 min) Moderate 10/26/2016 Patient Education: Patient [...] occur. 09/27/2016 Appointment: Lesley Butcher WPtel: [phone] [facility] (15 min) Moderate 09/27/2016 Patient Education: Patient [...] shelli andrea 06/28/2016 Appointment: [facility] [phone] [facility] (15 min) Moderate 06/28/2016 Patient Education: Patient [...] and plan. 02/17/2016 Appointment: Merline Rose WPtel: [facility] [phone] (30 min) Complex 02/17/2016 Patient Education: [...] Summary Completed 12/16/2015 Appointment: Lesley Butcher WPtel: [address] [place], [place] [address] (15 min) Moderate 12/04/2015 Appointment: [phone] [facility] (15 min) Moderate 12/02/2015 Visit Plan: Admission [...] PHARMACY 07/30/2015 Appointment: [phone] [facility] [place] (15 min) Moderate 07/30/2015 Patient [...] home. 04/29/2015 App[facility]ment: [phone] [facility] (15 min[facility] Moderate 04/29/2015 Patient Education: [...] External, Ordering Provider Referral Appointment Requested Referral: [facility] 09/12 Referral info faxed Appointment Requested Referral: [facility] Referral Appointment Requested Instructions Comment . Gout Attack - pt given rx [...] change in blood pressure readings at home. Do physical therapy once the gout gets [...] incontinence - rx for detrol [place] . BPH - continue with dutasteride and [...] recommended patient to have an evaluation at [facility] to see if he [...] change in blood pressure readings at home. Do physical therapy once the gout gets [...] THE FLU SHOT AT THE PHARMACY increase oxybutynin to 10mg daily. . Hypertension [...]
--- OUTSIDE RECORDS SUMMARY | 2018-12-19 12:58 | XMS REPORT | CCD ---
Author Author [facility] Organization [facility] Address [address] [place] [address] Phone Care Team Providers Care Lathe Setup Operator Name Role Phone PP Unavailable CCM Unavailable Summary Purpose Interface Exchange Insurance Providers Payer name Policy type / Coverage type Covered constitution party ID Effective Begin Date Effective End Date WPS Medicare Part B Medicare Part B [id number] Unknown Unknown [facility] Medicare Part B [id number] Unknown Unknown Family history Father Diagnosis Age At Onset Hypertension Unknown Coronary Artery Disease Unknown Sister Diagnosis Age At Onset Heart disease Unknown Mother Diagnosis Age At Onset Coronary Artery Disease Unknown Hypertension Unknown Social History Social History Element Codes Description Effective Dates Marital status Unknown 02/19/2015 Number of children Unknown 2 02/19/2015 Employment Unknown Retired 02/19/[address]: 843560128 Has never smoked or chewed tobacco 02/19/2015 Alcohol history Unknown occasionally drinks alcohol 02/19/2015 Allergies, Adverse Reactions, Alerts Allergies, Adverse Reactions, Alerts data not found Past Medical History Illness Codes Condition Status Onset Date Resolved Date Essential (primary) hypertension ICD-9: 401.1 ICD-10: I10 Active 06/27/2016 Unknown Benign prostatic hyperplasia without lower urinary tract symptoms ICD-9: 600.00 ICD-10: N40.0 Active 01/03/2017 Unknown Dysphagia, pharyngeal phase ICD-9: 787.23 ICD-10: R13.13 Active 09/29/2017 Unknown Major depressive disorder, recurrent, 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 ICD-10: F33.0 Active 06/27/2016 Unknown Sensorineural hearing loss, bilateral ICD-9: 389.11 ICD-10: H90.3 Active 09/01/2017 Unknown Encounter for general adult medical examination with abnormal findings ICD-9: V70.0 ICD-10: Z00.01 Active 08/03/2017 Unknown Mixed hyperlipidemia ICD-9: 272.2 ICD-10: E78.2 Active 02/16/2016 Unknown Urge incontinence ICD- 9: 788.31 ICD-10: N39.41 Active 09/27/2016 Unknown Essential (primary) hypertension ICD-9: 401.9 ICD-10: I10 Active 02/18/2015 Unknown Encounter for immunization ICD-9: V04.81 ICD-10: Z23 Active 06/27/2016 Unknown Laceration without foreign body of right forearm, initial encounter ICD-9: 881.00 ICD-10: S51.811A Active 06/27/2016 Unknown Laceration without foreign body of left forearm, initial encounter ICD-9: 881.00 ICD-10: S51.812A Active 06/27/2016 Unknown Idiopathic gout, left ankle and foot ICD-9: 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.00 ICD-10: M10.072 Active 04/26/2016 Unknown 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 ICD-10: D50.8 Active 04/26/2016 Unknown Localized edema ICD-9 : 782.3 ICD-10: R60.0 Active 01/19/2016 Unknown Major depressive disorder, single episode, unspecified ICD-9: 311 ICD-10: F32.9 Active 01/19/2016 Unknown Gout, unspecified ICD- 9: 274.9 ICD-10: M10.9 Active 12/15/2015 Unknown Hypotension, unspecified ICD-9: 458.9 ICD-10: I95.9 Active 12/15/2015 Unknown Weakness ICD-9: 780.79 ICD-10: R53.1 Active 12/15/2015 Unknown Dyspnea, unspecified ICD-9: 786.09 [...] Dates Condition Status Essential (primary) hypertension ICD-9: 401.1 ICD-10: I10 06/27/2016 Active Benign prostatic hyperplasia without lower urinary tract symptoms ICD-9: 600.00 ICD-10: N40.0 01/03/2017 Active Dysphagia, pharyngeal phase ICD-9: 787.23 ICD-10: R13.13 09/29/2017 Active Major depressive disorder, recurrent, 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 ICD-10: F33.0 06/27/2016 Active Sensorineural hearing loss, bilateral ICD-9: 389.11 ICD-10: H90.3 09/01/2017 Active Encounter for general adult medical examination with abnormal findings ICD-9: V70.0 ICD-10: Z00.01 08/03/2017 Active Mixed hyperlipidemia ICD-9: 272.2 ICD-10: E78.2 02/16/2016 Active Urge incontinence ICD- 9: 788.31 ICD-10: N39.41 09/27/2016 Active Essential (primary) hypertension ICD-9: 401.9 ICD-10: I10 02/18/2015 Active Encounter for immunization ICD-9: V04.81 ICD-10: Z23 06/27/2016 Active Laceration without foreign body of right forearm, initial encounter ICD-9: 881.00 ICD-10: S51.811A 06/27/2016 Active Laceration without foreign body of left forearm, initial encounter ICD-9: 881.00 ICD-10: S51.812A 06/27/2016 Active Idiopathic gout, left ankle and foot ICD-9: 274.00 ICD-10: M10.072 04/26/2016 Active 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 ICD-10: D50.8 04/26/2016 Active Localized edema ICD-9 : 782.3 ICD-10: R60.0 01/19/2016 Active Major depressive disorder, single episode, unspecified ICD-9: 311 ICD-10: F32.9 01/19/2016 Active Gout, unspecified ICD- 9: 274.9 ICD-10: M10.9 12/15/2015 Active Hypotension, unspecified ICD-9: 458.9 ICD-10: I95.9 12/15/2015 Active Weakness ICD-9: 780.79 ICD-10: R53.1 12/15/2015 Active Dyspnea, unspecified ICD-9: 786.09 ICD-10: [...] Fill Instructions clonazepam 1 mg tablet RxNorm: 452042 Tablet(s) TAKE ONE TABLET BY MOUTH ONCE DAILY AT BEDTIME AND ONE TABLET THREE TIMES DAILY NEEDED 11/28/2017 01/26/2018 Active pantoprazole 40 mg tablet,delayed release RxNorm: 048555 TAKE ONE TABLET BY MOUTH ONCE DAILY AT BEDTIME 11/07/2017 No Stop Date Active allopurinol 100 mg tablet RxNorm: 536461 TAKE ONE TABLET BY MOUTH ONCE DAILY 10/03/2017 No Stop Date Active pantoprazole 40 mg tablet,delayed release RxNorm: 693641 1 Tablet(s) PO BID 09/01/2017 05/28/2018 Active Vitamin B-6 100 mg tablet RxNorm: 455108 1 Tablet(s) PO daily 09/01/2017 No Stop Date Active dutasteride 0.5 mg capsule RxNorm: 603151 1 Capsule(s) PO QPM 09/01/2017 08/26/2018 Active spironolactone 25 mg tablet RxNorm: 973756 TAKE ONE TABLET BY MOUTH ONCE DAILY 08/15/2017 No Stop Date Active citalopram 40 mg tablet RxNorm: 216795 TAKE ONE TABLET BY MOUTH ONCE DAILY 08/08/2017 05/04/2018 Active dexamethasone 0.5 mg tablet RxNorm: 959409 TAKE ONE TABLET BY MOUTH ONCE DAILY 08/08/2017 11/05/2017 Inactive clonazepam 1 mg tablet RxNorm: 004941 TAKE ONE TABLET BY MOUTH ONCE DAILY AT BEDTIME AND ONE THREE TIMES DAILY NEEDED 05/12/2017 08/08/2017 Inactive clonazepam 1 mg tablet RxNorm: 214100 1 Tablet(s) PO QHS AND 1 TAB PO TID PRN 05/12/2017 05/13/2017 Inactive oxybutynin chloride ER 10 mg tablet,extended release 24 hr RxNorm: 999154 1 Tablet (s) PO daily 04/29/2017 08/02/2017 Inactive Flomax 0.4 mg capsule RxNorm: 232698 TAKE ONE CAPSULE BY MOUTH ONCE DAILY IN THE EVENING 02/14/2017 11/10/2017 Inactive dexamethasone 0.5 mg tablet RxNorm: 779616 TAKE ONE TABLET BY MOUTH ONCE DAILY 02/14/2017 04/14/2017 Inactive pantoprazole 40 mg tablet,delayed release RxNorm: 688495 TAKE ONE TABLET BY MOUTH ONCE DAILY AT BEDTIME 02/14/20172016 Inactive oxybutynin chloride ER 10 mg tablet,extended release 24 hr RxNorm: 059300 1 Tablet (s) PO daily 01/25/2017 04/24/2017 Inactive dexamethasone 0.5 mg tablet RxNorm: 398945 TAKE ONE TABLET BY MOUTH ONCE DAILY 11/10/2016 12/09/2016 Inactive oxybutynin chloride ER 5 mg tablet,extended release 24 hr RxNorm: 502105 1 Tablet( s) PO daily 10/28/2016 10/27/2016 Inactive oxybutynin chloride ER 5 mg tablet,extended release 24 hr RxNorm: 381101 1 Tablet( s) PO daily 10/28/2016 01/24/2017 Inactive Detrol LA 2 mg capsule,extended release RxNorm: 106673 1 Capsule(s) PO QPM 10/26/2016 10/27/2016 Inactive clonazepam 1 mg tablet RxNorm: 761587 1 Tablet(s) PO QHS AND 1 TAB PO TID PRN 10/20/2016 04/17/2017 Inactive dexamethasone 0.5 mg tablet RxNorm: 884375 TAKE ONE TABLET BY MOUTH ONCE DAILY 10/06/2016 11/04/2016 Inactive allopurinol 100 mg tablet RxNorm: 473195 1 Tablet(s) PO daily 09/30/2016 09/24/2017 Inactive Vesicare 5 mg tablet RxNorm: 443736 1 Tablet(s) PO QPM 201512/12/2016 Inactive spironolactone 25 mg tablet RxNorm: 082720 1 Tablet(s) PO daily 08/06/2016 07/31/2017 Inactive citalopram 40 mg tablet RxNorm: 349087 1 Tablet(s) PO daily 09/201606/22/2017 Inactive dexamethasone 0.5 mg tablet RxNorm: 525920 1/2 Tablet(s) PO daily 04/27/2016 No Stop Date Active Plavix 75 mg tablet RxNorm: 046313 1 Tablet(s) PO daily 2015 No Stop Date Active iron ER 159 mg (45 mg iron) tablet,extended release RxNorm: 666165 1 Tablet(s) PO daily 04/27/2016 08/31/2017 Inactive allopurinol 100 mg tablet RxNorm: 989104 1 Tablet(s) PO daily 04/27/2016 09/29/2016 Inactive clonazepam 1 mg tablet RxNorm: 502841 1 Tablet(s) PO QHS and 1 tab po TID prn 04/14/2016 10/07/2016 Inactive allopurinol 100 mg tablet RxNorm: 734103 1 Tablet(s) PO daily 02/17/2016 04/26/2016 Inactive citalopram 20 mg tablet RxNorm: 425660 1 Tablet(s) PO daily 02/201606/27/2016 Inactive Flomax 0.4 mg capsule RxNorm: 746292 1 Capsule(s) PO QPM 201501/13/2017 Inactive [SAVINGS FOR NON-COVERED DRUGS -- BIN:038011, PCN: ASPROD1, Group: XXXXX, ID # XXXXXXX, Questions: . THIS IS NOT INSURANCE.] pantoprazole 40 mg tablet,delayed release RxNorm: 378663 1 Tablet(s) PO QHS 01/20/2016 01/13/2017 Inactive Colcrys 0.6 mg tablet RxNorm: 550459 1 Tablet(s) PO daily 201503/05/2016 Inactive take daily x 7 days then daily as needed for gout flair colchicine 0.6 mg tablet RxNorm: 238537 1 Tablet(s) PO BID 01/01/2016 Inactive doxycycline hyclate 100 mg tablet RxNorm: 797491 1 Tablet(s) PO BID 12/19/2015 12/28/2015 Inactive doxycycline hyclate 100 mg tablet RxNorm: 467694 1 Tablet(s) PO BID 12/19/2015 12/18/2015 Inactive allopurinol 100 mg tablet RxNorm: 690584 1 Tablet(s) PO daily 12/16/2015 02/16/2016 Inactive colchicine 0.6 mg tablet RxNorm: 556445 Tablet(s) PO 1.2 mg PO in the morning and 0.6 mg at night for 2 days. 12/16/2015 Inactive allopurinol 100 mg tablet RxNorm: 617318 1 Tablet(s) PO daily 12/16/2015 12/15/2015 Inactive Protonix 40 mg tablet,delayed release RxNorm: 095081 1 Tablet(s) PO daily 12/16/2015 01/14/2016 Inactive Bactrim DS 800 mg-160 mg tablet RxNorm: 345557 1 Tablet(s) PO BID 12/16/2015 12/18/2015 Inactive colchicine 0.6 mg tablet RxNorm: 287454 Tablet(s) PO 1.2 mg for the first dose and 0.6 mg an hour after 12/15/20152015 Inactive dexamethasone 0.5 mg tablet RxNorm: 941999 1 Tablet(s) PO 12/1202/09/2016 Inactive Plavix 75 mg tablet RxNorm: 411527 1 Tablet(s) PO every other day 12/12/2015 04/09/2016 Inactive nitroglycerin 0.4 mg sublingual tablet RxNorm: 265063 1 Tablet(s) SL x3 in 15 min as needed 12/12/2015 04/26/2016 Inactive clonazepam 1 mg tablet RxNorm: 288881 1 Tablet(s) PO QHS and 1 tab po TID prn 12/11/2015 12/03/2016 Inactive [place] 5 mg-325 mg tablet RxNorm: 176523 1-2 Tablet(s) PO Q6 as needed 12/11/2015 09/26/2016 Inactive clonazepam 1 mg tablet RxNorm: 701116 1 Tablet(s) PO QHS and 1 tab po TID prn 12/04/2015 12/10/2015 Inactive Flomax 0.4 mg capsule RxNorm: 109545 1 Capsule(s) PO QPM 201401/19/2016 Inactive [SAVINGS FOR NON-COVERED DRUGS -- BIN:[id number], PCN: ASPROD1, Group: XXXXX, ID # XXXXXXX, Questions: . THIS IS NOT INSURANCE.] Flomax 0.4 mg capsule RxNorm: 614862 1 Capsule(s) PO QPM 201409/21/2015 Inactive [SAVINGS FOR NON-COVERED DRUGS -- BIN:137482, PCN: ASPROD1, Group: XXXXX, ID # XXXXXXX, Questions: . THIS IS NOT INSURANCE.] clonazepam 1 mg tablet RxNorm: 163895 1 Tablet(s) PO QHS 201412/03/2015 Inactive coenzyme Q10 10 mg tablet RxNorm: 679111 1 Tablet(s) PO daily 07/30/2015 01/05/2016 Inactive spironolactone 25 mg tablet RxNorm: 126816 1 Tablet(s) PO daily 07/28/2015 07/21/2016 Inactive spironolactone 25 mg tablet RxNorm: 045074 1 Tablet(s) PO daily 07/22/2015 07/27/2015 Inactive clonazepam 1 mg tablet RxNorm: 131957 1 Tablet(s) PO QHS 201408/28/2015 Inactive losartan 25 mg tablet RxNorm: 196654 1 Tablet(s) PO daily 201403/20/2015 Inactive Flonase Allergy Relief 50 mcg/actuation nasal spray, suspension RxNorm: 1 [place] NASAL BID 02/19/2015 04/26/2016 Inactive [SAVINGS FOR NON-COVERED DRUGS -- BIN:[id number], PCN: ASPROD1, Group: XXXXX, ID# XXXXXXX, Questions: [phone]. THIS IS NOT INSURANCE.] Flomax 0.4 mg capsule RxNorm: 503231 1 Capsule(s) PO QPM 201409/15/2015 Inactive [SAVINGS FOR NON-COVERED DRUGS -- BIN:870353, PCN: ASPROD1, Group: XXXXX, ID # XXXXXXX, Questions: . THIS IS NOT INSURANCE.] citalopram 20 mg tablet RxNorm: 896012 1 Tablet(s) PO daily 03/201503/20/2015 Inactive atenolol 25 mg tablet RxNorm: 499103 1 Tablet(s) PO daily 201403/20/2015 Inactive Lipitor 20 mg tablet RxNorm: 759809 1 Tablet(s) PO daily 201403/20/2015 Inactive glucosamine HCl 1,500 mg tablet RxNorm: 634414 1 Tablet(s) with 1200 mg chrondroitin PO daily No Start Date Active krill oil oral RxNorm : 49456 oral No Start Date Active cetirizine 10 mg tablet RxNorm: 8809897 1 Tablet(s) PO daily No Start Date Active losartan 50 mg tablet RxNorm: 444238 1 Tablet(s) PO daily No Start Date Active aspirin 81 mg tablet,delayed release RxNorm: 647782 1 Tablet(s) PO daily No Start Date Active Vitamin B-12 1,000 mcg tablet RxNorm: 617959 6 Tablet(s) PO every other day No Start Date Active Aleve 220 mg tablet RxNorm: 541340 Tablet(s) PO as needed No Start Date Active Vitamin D3 1,000 unit capsule RxNorm: 588977 2 Capsule(s) PO daily No Start Date Active Centrum Complete oral RxNorm: 39551 oral No Start Date Active ranitidine 150 mg tablet RxNorm: 449064 1 Tablet(s) PO TID No Start Date 12/11/2015 Inactive [place] 5 mg-325 mg tablet RxNorm: 018531 1-2 Tablet(s) PO Q6 as needed No Start Date 12/10/2015 Inactive Vitamin B-6 100 mg tablet RxNorm: 779665 1 Tablet(s) PO TID No Start Date 08/31/2017 Inactive spironolactone 25 mg tablet RxNorm: 034622 1 Tablet(s) PO daily No Start Date 07/21/2015 Inactive Vitamin D3 oral RxNorm : 2418 oral No Start Date 02/17/2016 Inactive clonazepam 1 mg tablet RxNorm: 920914 1 Tablet(s) PO daily No Start Date 05/22/2015 Inactive Glucosamine oral RxNorm: 4845 oral No Start Date 04/26/2016 Inactive Plavix 75 mg tablet RxNorm: 850593 1 Tablet(s) PO every other day No Start Date 12/11/2015 Inactive Osteo Bi-Flex oral RxNorm: 4883263 oral No Start Date 09/01/2017 Inactive iron ER 159 mg (45 mg iron) tablet,extended release RxNorm: 781536 1 Tablet(s) PO BID No Start Date 04/26/2016 Inactive amlodipine 5 mg tablet RxNorm: 354599 1 Tablet(s) PO daily No Start Date 01/05/2016 Inactive dexamethasone 0.5 mg tablet RxNorm: 972122 1 Tablet(s) PO No Start Date 12/11/2015 Inactive colchicine 0.6 mg tablet RxNorm: 912480 Tablet(s) PO 1.2 mg for the first dose and 0.6 mg an hour after No Start Date Inactive nitroglycerin 0.4 mg sublingual tablet RxNorm: 410620 1 Tablet(s) SL x3 in 15 min as needed No Start Date 12/11/2015 Inactive Fish Oil 1,000 mg capsule RxNorm: 1 Capsule(s) PO daily No Start Date 04/26/2016 Inactive Ecotrin Low Strength 81 mg tablet,enteric coated RxNorm: 7564259 1 Tablet(s) PO daily No Start Date [...] 05/15/2008 completed Assessments Condition Codes Effective Dates Essential (primary) hypertension ICD-10: I10 ICD-9: 401.1 10/27/2017 Dysphagia, pharyngeal phase ICD-10: R13.13 ICD-9: 787.23 09/29/2017 Benign prostatic hyperplasia with lower urinary tract symptoms ICD-10: N40.1 ICD-9: 600.01 09/29/2017 Major depressive disorder, recurrent, mild ICD-10: F33.0 ICD-9: 296.31 09/01/2017 Sensorineural hearing loss, bilateral ICD-10: H90.3 ICD-9: 389.11 09/01/2017 Encounter for general adult medical examination with abnormal findings ICD-10: Z00.01 ICD-9: V70.0 08/03/2017 Mixed hyperlipidemia ICD-10: E78.2 ICD-9: 272.2 04/26/2017 Urge incontinence ICD-10: N39.41 ICD-9: 788.31 01/25/2017 Essential (primary) hypertension ICD-10: I10 ICD-9: 401.9 01/03/2017 Benign prostatic hyperplasia without lower urinary tract symptoms ICD-10: N40.0 ICD-9: 600.00 01/03/2017 Encounter for immunization ICD-10: Z23 ICD-9: V04.81 06/28/2016 Laceration without foreign body of left forearm, initial encounter ICD-10: S51.812A ICD-9: 881.00 06/28/2016 Laceration without foreign body of right forearm, initial encounter ICD-10: S51.811A ICD-9: 881.00 06/28/2016 Other iron 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 ICD-9: 280.1 04/27/2016 Idiopathic gout, left ankle and foot ICD-10: M10.072 ICD-9: 274.00 04/27/2016 Localized edema ICD-10: R60.0 ICD-9: 782.3 01/20/2016 Major depressive disorder, single episode, unspecified ICD- 10: F32.9 ICD-9: 311 01/20/2016 Gout, unspecified ICD-10: M10.9 ICD-9: 274.9 12/16/2015 Hypotension, unspecified ICD-10: I95.9 ICD-9: 458.9 12/16/2015 Weakness ICD-10: R53.1 ICD-9: 780.79 12/16/2015 Dyspnea, unspecified ICD-10: R06.00 ICD-9: 786.09 [...] Visit Reason For Visit Effective Dates Notes hypertension 10/27/2017 hypertension 09/29/2017 hypertension 09/01/2017 Annual [...] Observation Code Item Item Code Result Date Lipid Ord30 CHOL 143 mg/dL 04/11/2017 Lipid [...] 42.2 % 04/11/2017 Cbc With Differential Ord2 MCV 89.6 fl 04/11/2017 Cbc With Differential Ord2 Lymph% 30.3 % 04/11/2017 Cbc With Differential Ord2 MCH 30.8 pg 04/11/2017 Cbc With Differential Ord2 [place]% 8.1 % 04/11/2017 Cbc With Differential Ord2 [...] 1.91 K/ul 04/11/2017 Cbc With Differential Ord2 [place] ABS# 0.5 K/ul 04/11/2017 Cbc With Differential Ord2 Eos ABS# 0.2 K/ul 04/11/2017 Cbc With Differential Ord2 Baso ABS# 0.0 K/ul 04/11/2017 Comp Metabolic Ndx731 NA 140 mEq/L 04/11/2017 Comp Metabolic Ueb371 K 4.1 mEq/L 04/11/2017 Comp Metabolic Jak847 CL 105 mEq/L 04/11/2017 Comp Metabolic Bip190 CO2 26.0 mEq/L 04/11/2017 Comp Metabolic Cmi587 ANION GAP 13 04/11/2017 Comp Metabolic Zzh399 GLUCOSE 88 mg/dL 04/11/2017 Comp Metabolic Qgs772 Creat 1.1 mg/dL 04/11/2017 Comp Metabolic Pdl267 eGFR 66 ml/min/1.73m2 04/11/2017 Comp Metabolic Dzt857 BUN 18 mg/dL 04/11/2017 Comp Metabolic Nnr191 B/C Ratio 15.9 Ratio 04/11/2017 Comp Metabolic Fdn718 CALCIUM 9.0 mg/dL 04/11/2017 Comp Metabolic Qiv753 ALK PHOS 72 U/L 04/11/2017 Comp Metabolic Xig191 AST(SGOT) 22 U/L 04/11/2017 Comp Metabolic Ypj939 ALT(SGPT) 26 U/L 04/11/2017 Comp Metabolic Jek675 BILI T 1.0 mg/dL 04/11/2017 Comp Metabolic Ncn772 ALBUMIN 4.0 g/dL 04/11/2017 Comp Metabolic Bqt950 TPRO 6.4 g/dL 04/11/2017 Comp Metabolic Rlq182 GLOB 2.4 g/dL 04/11/2017 Comp Metabolic Yas496 A/G Ratio 1.6 Ratio 04/11/2017 Comp Metabolic Rsj381 Osmo 281 mOsmo 04/11/2017 Vitamin D 25 Oh Yvm1992 VITAMIN D, 25 HYDROXY 65.52 ng/mL Cbc [...] 85.2 fl 05/18/2016 Cbc With Differential Ord2 [place]% 7.2 % 05/18/2016 Cbc With Differential Ord2 [...] 1.80 K/ul 05/18/2016 Cbc With Differential Ord2 [place] ABS# 0.4 K/ul 05/18/2016 Cbc With Differential Ord2 Eos ABS# 0.2 K/ul 05/18/2016 Cbc With Differential Ord2 Baso ABS# 0.0 K/ul 05/18/2016 Magnesium Ord90 Mag 2.0 mg/dL 05/18/2016 Renal Pdt553 NA 139 mEq/L 05/18/2016 Renal Zli949 K 4.0 mEq/L 05/18/2016 Renal Jky077 CL 104 mEq/L 05/18/2016 Renal Mmw169 CO2 27.0 mEq/L 05/18/2016 Renal Irt928 ANION GAP 12 05/18/2016 Renal Rnr582 Osmo 279 mOsmo 05/18/2016 Renal Xby020 GLUCOSE 91 mg/dL 05/18/2016 Renal Rtv437 BUN 18 mg/dL 05/18/2016 Renal Ddn432 Creat 1.3 mg/dL 05/18/2016 Renal Wop650 eGFR 59 ml/min/1.73m2 05/18/2016 Renal Lyd055 B/C Ratio 14.3 Ratio 05/18/2016 Renal Don983 CALCIUM 9.3 mg/dL 05/18/2016 Renal Lxc971 PHOS 3.2 mg/dL 05/18/2016 Renal Blw102 ALBUMIN 4.2 g/dL 05/18/2016 Random Urine Protein/Creatinine Ratio Fec8978 U Prot 15.0 mg/dl 05/18/2016 Random Urine Protein/Creatinine Ratio Cnx8745 U CREAT 141.0 mg/dL 05/18/2016 Random Urine Protein/Creatinine Ratio Qiy4605 R MTP/Creat Ratio 0.11 05/18/2016 Urinalysis Ord28 [...] 28.5 pg 02/19/2016 Cbc With Differential Ord2 [place]% 9.5 % 02/19/2016 Cbc With Differential Ord2 [...] 1.91 K/ul 02/19/2016 Cbc With Differential Ord2 [place] ABS# 0.5 K/ul 02/19/2016 Cbc With Differential Ord2 Eos ABS# 0.2 K/ul 02/19/2016 Cbc With Differential Ord2 Baso ABS# 0.0 K/ul 02/19/2016 Cbc With Differential Ord2 New Analyzer Notice Please note new ref ranges starting 10-29-2015 due to implemntation of new five part differential hematolgy analyzer. 02/19/2016 Tsh Ord6 hTSH II 2.10 uIU/mL 02/19/2016 Comp Metabolic Fcl739 NA 138 mEq/L 02/19/2016 Comp Metabolic Dhc850 K 3.8 mEq/L 02/19/2016 Comp Metabolic Bmw691 CL 103 mEq/L 02/19/2016 Comp Metabolic Ait085 CO2 28.0 mEq/L 02/19/2016 Comp Metabolic Otp206 ANION GAP 11 02/19/2016 Comp Metabolic Cpt211 GLUCOSE 94 mg/dL 02/19/2016 Comp Metabolic Eor099 Creat 1.0 mg/dL 02/19/2016 Comp Metabolic Gbd314 eGFR 75 ml/min/1.73m2 02/19/2016 Comp Metabolic Kpf168 BUN 18 mg/dL 02/19/2016 Comp Metabolic Tnv715 B/C Ratio 17.6 Ratio 02/19/2016 Comp Metabolic Tls648 CALCIUM 9.6 mg/dL 02/19/2016 Comp Metabolic Tbm349 ALK PHOS 93 U/L 02/19/2016 Comp Metabolic Vtz487 AST(SGOT) 23 U/L 02/19/2016 Comp Metabolic Cih635 ALT(SGPT) 19 U/L 02/19/2016 Comp Metabolic Hpe829 BILI T 0.8 mg/dL 02/19/2016 Comp Metabolic Spe233 ALBUMIN 4.1 g/dL 02/19/2016 Comp Metabolic Wzi375 TPRO 6.8 g/dL 02/19/2016 Comp Metabolic Kpr022 GLOB 2.7 g/dL 02/19/2016 Comp Metabolic Kkh727 A/G Ratio 1.5 Ratio 02/19/2016 Comp Metabolic Syn341 Osmo 277 mOsmo 02/19/2016 Uric Acid Ord77 Uric A 6.0 mg/dL 02/19/2016 Total Psa Ord10 PSA 0.82 ng/mL 02/19/2016 Comp Metabolic Oko543 NA 140 mEq/L 12/16/2015 Comp Metabolic Cyh393 K 4.0 mEq/L 12/16/2015 Comp Metabolic Nqc625 CL 105 mEq/L 12/16/2015 Comp Metabolic Nst080 CO2 24.0 mEq/L 12/16/2015 Comp Metabolic Tpk428 ANION GAP 15 12/16/2015 Comp Metabolic Dqz884 GLUCOSE 85 mg/dL 12/16/2015 Comp Metabolic Dge598 Creat 1.2 mg/dL 12/16/2015 Comp Metabolic Dui421 eGFR 65 ml/min/1.73m2 12/16/2015 Comp Metabolic Few707 BUN 14 mg/dL 12/16/2015 Comp Metabolic Wlj651 B/C Ratio 12.1 Ratio 12/16/2015 Comp Metabolic Hlu861 CALCIUM 9.1 mg/dL 12/16/2015 Comp Metabolic Uyl999 ALK PHOS 162 U/L 12/16/2015 Comp Metabolic Mvr200 AST(SGOT) 14 U/L 12/16/2015 Comp Metabolic Xyn983 ALT(SGPT) 17 U/L 12/16/2015 Comp Metabolic Luy572 BILI T 1.0 mg/dL 12/16/2015 Comp Metabolic Yvq568 ALBUMIN 3.4 g/dL 12/16/2015 Comp Metabolic Zzu271 TPRO 6.2 g/dL 12/16/2015 Comp Metabolic Lgs348 GLOB 2.9 g/dL 12/16/2015 Comp Metabolic Ohs473 A/G Ratio 1.2 Ratio 12/16/2015 Comp Metabolic Hox238 Osmo 279 mOsmo 12/16/2015 Uric Acid Ord77 [...] 28.1 pg 12/16/2015 Cbc With Differential Ord2 [place]% 7.5 % 12/16/2015 Cbc With Differential Ord2 Eos% 3.1 % 12/16/2015 Cbc With Differential Ord2 MCHC 31.6 pg 12/16/2015 Cbc With Differential Ord2 PLT 231 K/ul 12/16/2015 Cbc With Differential Ord2 Baso% 0.2 % 12/16/2015 Cbc With Differential Ord2 RDW 14.7 % 12/16/2015 Cbc With Differential Ord2 Neut ABS# 3.01 K/ul 12/16/2015 Cbc With Differential Ord2 Lymph ABS# 1.52 K/ul 12/16/2015 Cbc With Differential Ord2 [place] ABS# 0.4 K/ul 12/16/2015 Cbc With Differential Ord2 Eos ABS# 0.2 K/ul 12/16/2015 Cbc With Differential Ord2 Baso ABS# 0.0 K/ul 12/16/2015 Cbc With Differential Ord2 New Analyzer Notice Please note new ref ranges starting 1-13-2016 due to implemntation of new five part differential hematolgy analyzer. 12/16/2015 Lipid Ord30 CHOL 156 mg/dL 07/21/2015 Lipid Ord30 HDL 39.0 mg/dl 07/21/2015 Lipid Ord30 TRIG 127 mg/dL 07/21/2015 Lipid Ord30 LDL 92 mg/dL 07/21/2015 Lipid Ord30 C/HDL 4.0 Ratio 07/21/2015 Urine Protein 24Hr Wjt676 U Prot 5.1 mg/dl 05/16/2015 Urine Protein 24Hr Acx782 U Prot24 71.5 mg/24hr 05/16/2015 Total Volume Urine Kox966 TV/24hr 1400 ml 05/16/2015 Cbc With Differential [...] Differential Ord2 RDW 15.4 % 05/15/2015 Renal Kqs835 NA 135 mEq/L 05/15/2015 Renal Dnu496 K 3.9 mEq/L 05/15/2015 Renal Rby187 CL 101 mEq/L 05/15/2015 Renal Rqf124 CO2 27.0 mEq/L 05/15/2015 Renal Xcp276 ANION GAP 11 05/15/2015 Renal Coa611 Osmo 274 mOsmo 05/15/2015 Renal Xkq160 GLUCOSE 132 mg/dL 05/15/2015 Renal Udy707 BUN 19 mg/dL 05/15/2015 Renal Hit440 Creat 1.1 mg/dL 05/15/2015 Renal Bmz545 eGFR 67 ml/min/1.73m2 05/15/2015 Renal Nfd538 B/C Ratio 17.0 Ratio 05/15/2015 Renal Fyg636 CALCIUM 9.6 mg/dL 05/15/2015 Renal Nju711 PHOS 3.0 mg/dL 05/15/2015 Renal Jkq593 ALBUMIN 4.3 g/dL 05/15/2015 Total Psa Ord10 PSA 0.70 ng/mL 05/15/2015 Review of Systems System Result Effective Dates Constitutional No chills 10/27/2017 Constitutional No diaphoresis [...] hygiene 10/26/2016 None Full Exam - General 1995 Eyes conjunctiva /eyelids Overall: conjunctiva clear 10/26/2016 [...] FLU VACC PRSV FREE INC ANTIG CPT-4: 73141 06/28/2016 TENIVAC TD VACCINE NO PRSRV 7/> IM CPT-4: 50585 06/28/2016 OCCULT BLOOD FECES CPT -4: 31337 02/19/2015 Vital Signs Date Vital 10/27/2017 Blood Pressure 1: 124/76 Code : 8480-6 BMI: 30.1 Code : 37142-9 Heart Rate 1 : 69 bpm Height: 6' SpO2: 95% Weight: 222 lbs 09/29/2017 Blood Pressure 1: 118/66 Code : 8480-6 BMI: 29.9 Code : 36658-0 Heart Rate 1 : 81 bpm Height: 6' SpO2: 95% Weight: 220 lbs 8 oz 09/01/2017 Blood Pressure 1: 122/82 Code : 8480-6 BMI: 29.6 Code : 44576-8 Heart Rate 1 : 75 bpm Height: 6' SpO2: 97% Weight: 218 lbs 08/03/2017 Blood Pressure 1: 120/68 Code : 8480-6 Heart Rate 1: 68 bpm Height: 6' SpO2: 94% Waist Measure (cm): 97 cm 04/26/2017 Blood Pressure 1: 122/72 Code : 8480-6 BMI: 29.4 Code : 25925-7 Heart Rate 1 : 85 bpm Height: 6' SpO2: 92% Weight: 217 lbs 01/25/2017 Blood Pressure 1: 118/78 Code : 8480-6 BMI: 29.4 Code : 22140-5 Heart Rate 1 : 72 bpm Height: 6' SpO2: 94% Temperature: 36.9 (C) / 98.5 (F) Weight: 217 lbs 10/26/2016 Blood Pressure 1: 152/86 Code : 8480-6 BMI: 29.7 Code : 90909-9 Heart Rate 1 : 58 bpm Height: 6' Weight: 219 lbs 09/27/2016 Blood Pressure 1: 138/80 Code : 8480-6 BMI: 29.4 Code : 67424-4 Heart Rate 1 : 52 bpm Height: 6' SpO2: 98% Weight: 217 lbs 06/28/2016 Blood Pressure 1: 128/86 Code : 8480-6 BMI: 29.6 Code : 34901-7 Heart Rate 1 : 69 bpm Height: 6' SpO2: 93% Weight: 218 lbs 04/27/2016 Blood Pressure 1: 118/82 Code : 8480-6 BMI: 29.3 Code : 10371-6 Heart Rate 1 : 85 bpm Height: 6' SpO2: 98% Weight: 216 lbs 02/17/2016 Blood Pressure 1: 132/80 Code : 8480-6 BMI: 28.8 Code : 06758-9 Heart Rate 1 : 94 bpm Height: 6' SpO2: 98% Weight: 212 lbs 01/20/2016 Blood Pressure 1: 120/70 Code : 8480-6 BMI: 29.7 Code : 32957-3 Heart Rate 1 : 87 bpm Height: 6' SpO2: 92% Weight: 219 lbs 01/06/2016 Blood Pressure 1: 122/88 Code : 8480-6 BMI: 28.8 Code : 57611-0 Heart Rate 1 : 83 bpm Height: [...] Code : 8480-6 BMI: 30.5 Code : 50814-2 Heart Rate 1 : 82 bpm Height: 6' SpO2: 92% Weight: 225 lbs 06/09/2015 Blood Pressure 1: 130/76 Code : 8480-6 BMI: 31.1 Code : 47453-9 Heart Rate 1 : 65 bpm Height: 6' SpO2: 96% Weight: 229 lbs 04/29/2015 Blood Pressure 1: 118/78 Code : 8480-6 BMI: 30.7 Code : 15515-3 Heart Rate 1 : 70 bpm Height: 6' Weight: 226 lbs 02/19/2015 Blood Pressure 1: 118/70 Code : 8480-6 BMI: 29.7 Code : 77389-9 Heart Rate 1 : 68 bpm Height: 6' Weight: 219 lbs Functional Status No Functional Status data History of Present Illness Symptom Name Status Result Effective Date Notes hypertension Quality intermittent 10/27/2017 None hypertension Quality [...] data Encounters Encounter Performer Location Codes Date ([id number]) 50979 EST. PATIENT, LEVEL III Diagnosis: Essential (primary) hypertension[ICD10: I10] [facility] CPT-4: 33840 10/27/2017 ([id number]) 44566 EST. PATIENT, LEVEL III Diagnosis: Benign prostatic hyperplasia with lower urinary tract symptoms[ICD10 : N40.1] Diagnosis: Dysphagia, pharyngeal phase[ICD10: R13.13] [facility] CPT-4: 05787 09/29/2017 ([id number]) 70328 EST. PATIENT, LEVEL IV Diagnosis: Essential (primary) hypertension[ICD10: I10] Diagnosis: Major depressive disorder, recurrent, mild[ICD10: F33.0] Diagnosis: Sensorineural hearing loss, bilateral[ICD10: H90.3] Lesley Butcher MD, [facility] CPT-4: 22770 09/01/2017 ([id number]) 86350 EST. PATIENT, LEVEL IV Diagnosis: Essential (primary) hypertension[ICD10: I10] Diagnosis: Major depressive disorder, recurrent, mild[ICD10: F33.0] Diagnosis: Mixed hyperlipidemia[ICD10: E78.2] Lesley Butcher MD, [facility] CPT-4: 95575 04/26/2017 ([id number]) 83140 EST. PATIENT, LEVEL IV Diagnosis: Essential (primary) hypertension[ICD10: I10] Diagnosis: Major depressive disorder, recurrent, mild[ICD10: F33.0] Diagnosis: Urge incontinence[ICD10: N39.41] Lesley Butcher MD, [facility] CPT-4: 56043 01/25/2017 ([id number]) 55846 EST. PATIENT, LEVEL IV Diagnosis: Essential (primary) hypertension[ICD10: I10] Diagnosis: Major depressive disorder, recurrent, mild[ICD10: F33.0] Diagnosis: Urge incontinence[ICD10: N39.41] Lesley Butcher MD, [facility] CPT-4: 44349 10/26/2016 ([id number]) 43476 EST. PATIENT, LEVEL III Diagnosis: Essential (primary) hypertension[ICD10: I10] Diagnosis: Major depressive disorder, recurrent, mild[ICD10: F33.0] Diagnosis: Urge incontinence[ICD10: N39.41] Lesley Butcher MD, [facility] CPT-4: 34489 09/27/2016 ([id number]) 38692 EST. PATIENT, LEVEL IV Diagnosis: Essential (primary) hypertension[ICD10: I10] Diagnosis: Encounter for immunization[ICD10: Z23] Diagnosis: Laceration without foreign body of left forearm, initial encounter[ ICD10: S51.812A] Diagnosis: Laceration without foreign body of right forearm, initial encounter[ ICD10: S51.811A] Diagnosis: Major depressive disorder, recurrent, mild[ICD10: F33.0] Lesley Butcher MD, [facility] CPT-4: 10085 06/28/2016 ([id number]) 94590 EST. 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 PATIENT, LEVEL IV Diagnosis: Weakness[ICD10: R53.1] Diagnosis: Gout, unspecified[ICD10: M10.9] Diagnosis: Hypotension, unspecified[ICD10: I95.9] Lesley Butcher MD, [facility] CPT-4: 58610 12/16/2015 ([id number]) Patient admitted to the hospital from clinic (NO CHARGE) Diagnosis: Hypoxemia[ICD10: R09.02] Diagnosis: Weakness[ICD10: R53.1] Diagnosis: Dyspnea, unspecified[ICD10: R06.00] Mady Butcher MD, [facility] CPT-4: 24047Y 11/27/2015 ([id number]) 15155 EST. PATIENT, LEVEL III Diagnosis: Essential (primary) hypertension[ICD10: I10] Diagnosis: Gastro-esophageal reflux disease without esophagitis[ICD10: K21.9] Lesley Butcher MD, [facility] CPT-4: 56914 07/30/2015 ([id number]) 28911 EST. PATIENT, LEVEL III Diagnosis: ESSENTIAL HYPERTENSION[ICD9: 401.9] Merline Butcher MD, [facility] CPT-4: 77108 06/09/2015 ([id number]) 21528 EST. PATIENT, LEVEL III Diagnosis: ESSENTIAL HYPERTENSION[ICD9: 401.9] Lesley Butcher MD, [facility] CPT-4: 89501 04/29/2015 ([id number]) OFFICE/OUTPATIENT VISIT NEW Diagnosis: ESSENTIAL HYPERTENSION[ICD9: 401.9] Diagnosis: DEPRESSIVE DISORDER NEC[ICD9: 311] Diagnosis: Enlarged prostate[ICD9: 600.00] Diagnosis: Nasal inflammation due to allergen[ICD9: 477.9] Lesley Butcher MD, [facility] CPT-4: 89366 02/19/2015 Plan of Care Planned Activity Notes Codes Status Date Visit Plan: Hypertension - well controlled - continue with current medications, continue with no added salt diet. Pt has been encouraged to exercise daily. The pt has been advised to call the office if there are any acute concerns about change in blood pressure readings at home. 10/27/2017 Appointment: Lesley Butcher WPtel: [address] [place], [place] [phone] (15 min) Moderate 10/27/2017 Patient Education: Patient Medication Summary Completed 10/27/2017 Referral: External, Ordering Provider Referral Initiated 10/12/2017 Visit Plan: BPH - continue with dutasteride and flomax Dysphagia - referral to Dr. Kumar for EGD - question stricture - dysphagia intermittently - hx of stricture. 09/29/2017 [phone] [phone] (15 min) Moderate 09/29/2017 Patient Education: Patient Medication Summary Completed 09/29/2017 Care Plan: Referral Order SNOMED-CT : 560784642 Pending 09/29/2017 Visit Plan: Hypertension - well [...] recommended patient to have an evaluation at [facility] to see if he has potential for cochlear implant. 09/01/2017 Appointment: Lesley Butcher WPtel: [phone] [facility] [place] (15 min) Moderate 09/01/2017 Patient Education: Patient Medication Summary Completed 09/01/2017 Care Plan: Referral Order SNOMED-CT : 052445109 Pending 09/01/2017 Visit Plan: Medicare Exam - [...] surrogate. 08/03/2017 Appointment: [facility] [phone] [phone] [facility] - Welcome to Medicare visit 08/03/2017 Patient [...] medications. 04/26/2017 App[facility]ment: [facility] [phone] [phone] (15 min) Moderate 04/26/2017 Patient Education: [...] 10mg daily. 01/25/2017 App[facility]ment: [phone] [phone] (30 min) Complex 01/25/2017 Patient Education: Patient [...] [place] 10/26/2016 Appointment: Lesley Butcher WPtel: [phone] [facility] [place] (15 min) Moderate 10/26/2016 Patient Education: Patient [...] occur. 09/27/2016 Appointment: Lesley Butcher WPtel: [phone] [phone] (15 min) Moderate 09/27/2016 Patient Education: Patient [...] andrea 06/28/2016 Appointment: Lesley Butcher WPtel: [phone] [phone] (15 min) Moderate 06/28/2016 Patient Education: Patient [...] gout-symptoms stable-continue allopurinol Allergies-recommend allergy eye drops-angela Ygvaleria-increase dexamethasone x 1 month 02/17/2016 Appointment: MiltonMerline WPtel: [address] [place], [place] [phone] (30 min) Complex 02/17/2016 Patient Education: Patient [...] Summary Completed 12/16/2015 Appointment: Lesley Butcher WPtel: [address] [place], [place] [id number] (15 min) Moderate 12/04/2015 [facility]ment: [facility] [phone] [phone] (15 min) Moderate 12/02/2015 Visit Plan: [...] PHARMACY 07/30/2015 App[facility]ment: [phone] [phone] (15 min) Moderate 07/30/2015 Patient Education: Patient [...] home. 04/29/2015 App[facility]ment: [facility] [phone] [phone] (15 min) Moderate 04/29/2015 Patient Education: Patient [...] External, Ordering Provider Referral Appointment Requested Referral: [facility] 09/12 Referral info faxed Appointment Requested Referral: [facility] Referral Appointment Requested Instructions Comment . [...] in blood pressure readings at home. increase citalopram to 40mg daily . Hypertension [...] eye drops-angela Vang-increase dexamethasone x 1 month . Hypertension - well controlled - continue [...] her DOPA paperwork for health care surrogate. Take 1/2 tab of Citalopram daily for [...] TREATMENT AND EVALUATION OF THE ACUTE ILLNESS. Vesicare 5mg - take one pill at [...] recommended patient to have an evaluation at [facility] to see if he has potential for [...]
--- OUTSIDE RECORDS SUMMARY | 2018-12-19 13:01 | XMS REPORT | CCD ---
Author Author [facility] Organization [facility] Address [address] [place] [address] Phone Care Team Providers Care Fence Setter Name Role Phone PP Unavailable CCM Unavailable Summary Purpose Interface Exchange Insurance Providers Payer name Policy type / Coverage type Covered democrat ID Effective Begin Date Effective End Date WPS Medicare Part B Medicare Part B [id number] Unknown Unknown [facility] Medicare Part B [id number] Unknown Unknown Family history Father Diagnosis Age At Onset Hypertension Unknown Coronary Artery Disease Unknown Sister Diagnosis Age At Onset Heart disease Unknown Mother Diagnosis Age At Onset Coronary Artery Disease Unknown Hypertension Unknown Social History Social History Element Codes Description Effective Dates Marital status Unknown 02/19/2015 Number of children Unknown 2 02/19/2015 Employment Unknown Retired 02/19/[address]: 499936016 Has never smoked or chewed tobacco 02/19/2015 [...] Instructions pantoprazole 40 mg tablet,delayed release RxNorm: 691115 TAKE ONE TABLET BY MOUTH ONCE DAILY AT BEDTIME 11/07/2017 No Stop Date Active allopurinol 100 mg tablet RxNorm: 857912 TAKE ONE TABLET BY MOUTH ONCE DAILY 10/03/2017 No Stop Date Active pantoprazole 40 mg tablet,delayed release RxNorm: 639878 1 Tablet(s) PO BID 09/01/2017 05/28/2018 Active Vitamin B-6 100 mg tablet RxNorm: 285373 1 Tablet(s) PO daily 09/01/2017 No Stop Date Active dutasteride 0.5 mg capsule RxNorm: 383430 1 Capsule(s) PO QPM 09/01/2017 08/26/2018 Active spironolactone 25 mg tablet RxNorm: 608976 TAKE ONE TABLET BY MOUTH ONCE DAILY 08/15/2017 No Stop Date Active citalopram 40 mg tablet RxNorm: 597779 TAKE ONE TABLET BY MOUTH ONCE DAILY 08/08/2017 05/04/2018 Active dexamethasone 0.5 mg tablet RxNorm: 606359 TAKE ONE TABLET BY MOUTH ONCE DAILY 08/08/2017 11/05/2017 Inactive clonazepam 1 mg tablet RxNorm: 310538 TAKE ONE TABLET BY MOUTH ONCE DAILY AT BEDTIME AND ONE THREE TIMES DAILY NEEDED 05/12/2017 08/09/2017 Inactive clonazepam 1 mg tablet RxNorm: 176873 1 Tablet(s) PO QHS AND 1 TAB PO TID PRN 05/12/2017 05/13/2017 Inactive oxybutynin chloride ER 10 mg tablet,extended release 24 hr RxNorm: 412707 1 Tablet (s) PO daily 04/29/2017 08/02/2017 Inactive Flomax 0.4 mg capsule RxNorm: 169112 TAKE ONE CAPSULE BY MOUTH ONCE DAILY IN THE EVENING 02/14/2017 11/10/2017 Active dexamethasone 0.5 mg tablet RxNorm: 205136 TAKE ONE TABLET BY MOUTH ONCE DAILY 02/14/2017 04/14/2017 Inactive pantoprazole 40 mg tablet,delayed release RxNorm: 616084 TAKE ONE TABLET BY MOUTH ONCE DAILY AT BEDTIME 02/14/20172016 Inactive oxybutynin chloride ER 10 mg tablet,extended release 24 hr RxNorm: 534596 1 Tablet (s) PO daily 01/25/2017 04/24/2017 Inactive dexamethasone 0.5 mg tablet RxNorm: 664387 TAKE ONE TABLET BY MOUTH ONCE DAILY 11/10/2016 12/09/2016 Inactive oxybutynin chloride ER 5 mg tablet,extended release 24 hr RxNorm: 501428 1 Tablet( s) PO daily 10/28/2016 10/27/2016 Inactive oxybutynin chloride ER 5 mg tablet,extended release 24 hr RxNorm: 746170 1 Tablet( s) PO daily 10/28/2016 01/24/2017 Inactive Detrol LA 2 mg capsule,extended release RxNorm: 968578 1 Capsule(s) PO QPM 10/26/2016 10/27/2016 Inactive clonazepam 1 mg tablet RxNorm: 093419 1 Tablet(s) PO QHS AND 1 TAB PO TID PRN 10/20/2016 04/17/2017 Inactive dexamethasone 0.5 mg tablet RxNorm: 193511 TAKE ONE TABLET BY MOUTH ONCE DAILY 10/06/2016 11/04/2016 Inactive allopurinol 100 mg tablet RxNorm: 796094 1 Tablet(s) PO daily 09/30/2016 09/24/2017 Inactive Vesicare 5 mg tablet RxNorm: 950785 1 Tablet(s) PO QPM 201512/12/2016 Inactive spironolactone 25 mg tablet RxNorm: 873241 1 Tablet(s) PO daily 08/06/2016 07/31/2017 Inactive citalopram 40 mg tablet RxNorm: 418029 1 Tablet(s) PO daily 09/201606/22/2017 Inactive dexamethasone 0.5 mg tablet RxNorm: 314589 1/2 Tablet(s) PO daily 04/27/2016 No Stop Date Active Plavix 75 mg tablet RxNorm: 955591 1 Tablet(s) PO daily 2015 No Stop Date Active iron ER 159 mg (45 mg iron) tablet,extended release RxNorm: 276663 1 Tablet(s) PO daily 04/27/2016 08/31/2017 Inactive allopurinol 100 mg tablet RxNorm: 145057 1 Tablet(s) PO daily 04/27/2016 09/29/2016 Inactive clonazepam 1 mg tablet RxNorm: 207087 1 Tablet(s) PO QHS and 1 tab po TID prn 04/14/2016 10/07/2016 Inactive allopurinol 100 mg tablet RxNorm: 763478 1 Tablet(s) PO daily 02/17/2016 04/26/2016 Inactive citalopram 20 mg tablet RxNorm: 313249 1 Tablet(s) PO daily 02/201606/27/2016 Inactive Flomax 0.4 mg capsule RxNorm: 154575 1 Capsule(s) PO QPM 201501/13/2017 Inactive [SAVINGS FOR NON-COVERED DRUGS -- BIN:[id number], PCN: ASPROD1, Group: XXXXX, ID # [id number], Questions: . THIS IS NOT INSURANCE.] pantoprazole 40 mg tablet,delayed release RxNorm: 399362 1 Tablet(s) PO QHS 01/20/2016 01/13/2017 Inactive Colcrys 0.6 mg tablet RxNorm: 175509 1 Tablet(s) PO daily 201503/05/2016 Inactive take daily x 7 days then daily as needed for gout flair colchicine 0.6 mg tablet RxNorm: 787723 1 Tablet(s) PO BID 01/01/2016 Inactive doxycycline hyclate 100 mg tablet RxNorm: 471625 1 Tablet(s) PO BID 12/19/2015 12/28/2015 Inactive doxycycline hyclate 100 mg tablet RxNorm: 538815 1 Tablet(s) PO BID 12/19/2015 12/18/2015 Inactive allopurinol 100 mg tablet RxNorm: 462332 1 Tablet(s) PO daily 12/16/2015 02/16/2016 Inactive colchicine 0.6 mg tablet RxNorm: 143372 Tablet(s) PO 1.2 mg PO in the morning and 0.6 mg at night for 2 days. 12/16/2015 Inactive allopurinol 100 mg tablet RxNorm: 574700 1 Tablet(s) PO daily 12/16/2015 12/15/2015 Inactive Protonix 40 mg tablet,delayed release RxNorm: 451971 1 Tablet(s) PO daily 12/16/2015 01/14/2016 Inactive Bactrim DS 800 mg-160 mg tablet RxNorm: 381831 1 Tablet(s) PO BID 12/16/2015 12/18/2015 Inactive colchicine 0.6 mg tablet RxNorm: 664436 Tablet(s) PO 1.2 mg for the first dose and 0.6 mg an hour after 12/15/20152015 Inactive dexamethasone 0.5 mg tablet RxNorm: 306304 1 Tablet(s) PO 12/1202/09/2016 Inactive Plavix 75 mg tablet RxNorm: 858765 1 Tablet(s) PO every other day 12/12/2015 04/09/2016 Inactive nitroglycerin 0.4 mg sublingual tablet RxNorm: 294112 1 Tablet(s) SL x3 in 15 min as needed 12/12/2015 04/26/2016 Inactive clonazepam 1 mg tablet RxNorm: 518195 1 Tablet(s) PO QHS and 1 tab po TID prn 12/11/2015 12/03/2016 Inactive [place] 5 mg-325 mg tablet RxNorm: 466769 1-2 Tablet(s) PO Q6 as needed 12/11/2015 09/26/2016 Inactive clonazepam 1 mg tablet RxNorm: 237062 1 Tablet(s) PO QHS and 1 tab po TID prn 12/04/2015 12/10/2015 Inactive Flomax 0.4 mg capsule RxNorm: 464589 1 Capsule(s) PO QPM 201401/19/2016 Inactive [SAVINGS FOR NON-COVERED DRUGS -- BIN:[id number], PCN: ASPROD1, Group: XXXXX, ID # XXXXXXX, Questions: . THIS IS NOT INSURANCE.] Flomax 0.4 mg capsule RxNorm: 053171 1 Capsule(s) PO QPM 201409/21/2015 Inactive [SAVINGS FOR NON-COVERED DRUGS -- BIN:549400, PCN: ASPROD1, Group: XXXXX, ID # [id number], Questions: . THIS IS NOT INSURANCE.] clonazepam 1 mg tablet RxNorm: 342875 1 Tablet(s) PO QHS 201412/03/2015 Inactive coenzyme Q10 10 mg tablet RxNorm: 446656 1 Tablet(s) PO daily 07/30/2015 01/05/2016 Inactive spironolactone 25 mg tablet RxNorm: 851172 1 Tablet(s) PO daily 07/28/2015 07/21/2016 Inactive spironolactone 25 mg tablet RxNorm: 221484 1 Tablet(s) PO daily 07/22/2015 07/27/2015 Inactive clonazepam 1 mg tablet RxNorm: 083637 1 Tablet(s) PO QHS 201408/28/2015 Inactive losartan 25 mg tablet RxNorm: 311482 1 Tablet(s) PO daily 201403/20/2015 Inactive Flonase Allergy Relief 50 mcg/actuation nasal spray, suspension RxNorm: 1 Walker NASAL BID 02/19/2015 04/26/2016 Inactive [SAVINGS FOR NON-COVERED DRUGS -- BIN:835167, PCN: ASPROD1, Group: XXXXX, ID# [id number], Questions: [phone]. THIS IS NOT INSURANCE.] Flomax 0.4 mg capsule RxNorm: 517873 1 Capsule(s) PO QPM 201409/15/2015 Inactive [SAVINGS FOR NON-COVERED DRUGS -- BIN:655576, PCN: ASPROD1, Group: XXXXX, ID # XXXXXXX, Questions: . THIS IS NOT INSURANCE.] citalopram 20 mg tablet RxNorm: 102811 1 Tablet(s) PO daily 03/201503/20/2015 Inactive atenolol 25 mg tablet RxNorm: 518854 1 Tablet(s) PO daily 201403/20/2015 Inactive Lipitor 20 mg tablet RxNorm: 820040 1 Tablet(s) PO daily 201403/20/2015 Inactive glucosamine HCl 1,500 mg tablet RxNorm: 460735 1 Tablet(s) with 1200 mg chrondroitin PO daily No Start Date Active krill oil oral RxNorm : 77802 oral No Start Date Active cetirizine 10 mg tablet RxNorm: 1897224 1 Tablet(s) PO daily No Start Date Active losartan 50 mg tablet RxNorm: 747698 1 Tablet(s) PO daily No Start Date Active aspirin 81 mg tablet,delayed release RxNorm: 747045 1 Tablet(s) PO daily No Start Date Active Vitamin B-12 1,000 mcg tablet RxNorm: 614078 6 Tablet(s) PO every other day No Start Date Active Aleve 220 mg tablet RxNorm: 530219 Tablet(s) PO as needed No Start Date Active Vitamin D3 1,000 unit capsule RxNorm: 810121 2 Capsule(s) PO daily No Start Date Active Centrum Complete oral RxNorm: 25533 oral No Start Date Active ranitidine 150 mg tablet RxNorm: 907763 1 Tablet(s) PO TID No Start Date 12/11/2015 Inactive [place] 5 mg-325 mg tablet RxNorm: 281522 1-2 Tablet(s) PO Q6 as needed No Start Date 12/10/2015 Inactive Vitamin B-6 100 mg tablet RxNorm: 462600 1 Tablet(s) PO TID No Start Date 08/31/2017 Inactive spironolactone 25 mg tablet RxNorm: 205546 1 Tablet(s) PO daily No Start Date 07/21/2015 Inactive Vitamin D3 oral RxNorm : 2418 oral No Start Date 02/17/2016 Inactive clonazepam 1 mg tablet RxNorm: 996290 1 Tablet(s) PO daily No Start Date 05/22/2015 Inactive Glucosamine oral RxNorm: 4845 oral No Start Date 04/26/2016 Inactive Plavix 75 mg tablet RxNorm: 696752 1 Tablet(s) PO every other day No Start Date 12/11/2015 Inactive Osteo Bi-Flex oral RxNorm: 4298844 oral No Start Date 09/01/2017 Inactive iron ER 159 mg (45 mg iron) tablet,extended release RxNorm: 149701 1 Tablet(s) PO BID No Start Date 04/26/2016 Inactive amlodipine 5 mg tablet RxNorm: 845927 1 Tablet(s) PO daily No Start Date 01/05/2016 Inactive dexamethasone 0.5 mg tablet RxNorm: 117921 1 Tablet(s) PO No Start Date 12/11/2015 Inactive colchicine 0.6 mg tablet RxNorm: 789576 Tablet(s) PO 1.2 mg for the first dose and 0.6 mg an hour after No Start Date Inactive nitroglycerin 0.4 mg sublingual tablet RxNorm: 523413 1 Tablet(s) SL x3 in 15 min as needed No Start Date 12/11/2015 Inactive Fish Oil 1,000 mg capsule RxNorm: 1 Capsule(s) PO daily No Start Date 04/26/2016 Inactive Ecotrin Low Strength 81 mg tablet,enteric coated RxNorm: 6310836 1 Tablet(s) PO daily No Start Date [...] V04.81 06/28/2016 Laceration without foreign body of right forearm, initial encounter ICD-10: S51.811A ICD-9: 881.00 06/28/2016 Laceration without foreign body of left forearm, initial encounter ICD-10: S51.812A ICD-9: 881.00 06/28/2016 Idiopathic gout, left ankle and foot ICD-10: M10.072 ICD-9: 274.00 04/27/2016 Other iron 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 ICD-9: 280.1 04/27/2016 Major depressive disorder, single episode, unspecified ICD- 10: F32.9 ICD-9: 311 01/20/2016 Localized edema ICD-10: R60.0 ICD-9: 782.3 01/20/2016 Gout, unspecified ICD-10: M10.9 ICD-9: 274.9 [...] 04/11/2017 Lipid Ord30 C/HDL 4.0 Ratio 04/11/2017 Comp Metabolic Mtf057 NA 140 mEq/L 04/11/2017 Comp Metabolic Aad434 K 4.1 mEq/L 04/11/2017 Comp Metabolic Glz664 CL 105 mEq/L 04/11/2017 Comp Metabolic Ocr072 CO2 26.0 mEq/L 04/11/2017 Comp Metabolic Rtz570 ANION GAP 13 04/11/2017 Comp Metabolic Bxp416 GLUCOSE 88 mg/dL 04/11/2017 Comp Metabolic Wie279 Creat 1.1 mg/dL 04/11/2017 Comp Metabolic Yay583 eGFR 66 ml/min/1.73m2 04/11/2017 Comp Metabolic Kfx435 BUN 18 mg/dL 04/11/2017 Comp Metabolic Tso312 B/C Ratio 15.9 Ratio 04/11/2017 Comp Metabolic Bwn954 CALCIUM 9.0 mg/dL 04/11/2017 Comp Metabolic Mgc121 ALK PHOS 72 U/L 04/11/2017 Comp Metabolic Gwi986 AST(SGOT) 22 U/L 04/11/2017 Comp Metabolic Mya093 ALT(SGPT) 26 U/L 04/11/2017 Comp Metabolic Zmq956 BILI T 1.0 mg/dL 04/11/2017 Comp Metabolic Djp317 ALBUMIN 4.0 g/dL 04/11/2017 Comp Metabolic Utw505 TPRO 6.4 g/dL 04/11/2017 Comp Metabolic Wmx278 GLOB 2.4 g/dL 04/11/2017 Comp Metabolic Bjb718 A/G Ratio 1.6 Ratio 04/11/2017 Comp Metabolic Chk442 Osmo 281 mOsmo 04/11/2017 Cbc With Differential Ord2 WBC 6.31 [...] 30.8 pg 04/11/2017 Cbc With Differential Ord2 Mora% 8.1 % 04/11/2017 Cbc With Differential Ord2 Eos% 3.0 % 04/11/2017 Cbc With Differential Ord2 MCHC 34.4 pg 04/11/2017 Cbc With Differential Ord2 Baso% 0.2 % 04/11/2017 Cbc With Differential Ord2 PLT 183 K/ul 04/11/2017 Cbc With Differential Ord2 RDW 15.3 % 04/11/2017 Cbc With Differential Ord2 Neut ABS# 3.69 K/ul 04/11/2017 Cbc With Differential Ord2 Lymph ABS# 1.91 K/ul 04/11/2017 Cbc With Differential Ord2 Mora ABS# 0.5 K/ul 04/11/2017 Cbc With Differential Ord2 Eos ABS# 0.2 K/ul 04/11/2017 Cbc With Differential Ord2 Baso ABS# 0.0 K/ul 04/11/2017 Vitamin D 25 Oh Axz6627 VITAMIN D, 25 HYDROXY 65.52 ng/mL Renal Dre276 NA 139 mEq/L 05/18/2016 Renal Jtx404 K 4.0 mEq/L 05/18/2016 Renal Hmw039 CL 104 mEq/L 05/18/2016 Renal Nvy735 CO2 27.0 mEq/L 05/18/2016 Renal Eya924 ANION GAP 12 05/18/2016 Renal Hur346 Osmo 279 mOsmo 05/18/2016 Renal Wnm478 GLUCOSE 91 mg/dL 05/18/2016 Renal Jzp327 BUN 18 mg/dL 05/18/2016 Renal Sok711 Creat 1.3 mg/dL 05/18/2016 Renal Kel159 eGFR 59 ml/min/1.73m2 05/18/2016 Renal Crb055 B/C Ratio 14.3 Ratio 05/18/2016 Renal Zew210 CALCIUM 9.3 mg/dL 05/18/2016 Renal Zrz668 PHOS 3.2 mg/dL 05/18/2016 Renal Nty578 ALBUMIN 4.2 g/dL 05/18/2016 Urinalysis Ord28 U-Color Yellow 05/18/2016 Urinalysis [...] 48 hours from collection if refrigerated) 05/18/2016 Random Urine Protein/Creatinine Ratio [id number] U Prot 15.0 mg/dl 05/18/2016 Random Urine Protein/Creatinine Ratio Wxq2201 U CREAT 141.0 mg/dL 05/18/2016 Random Urine Protein/Creatinine Ratio Cnn5323 R MTP/Creat Ratio 0.11 05/18/2016 Magnesium Ord90 Mag 2.0 mg/dL 05/18/2016 Cbc With Differential Ord2 WBC 5.81 K/ul 05/18/2016 Cbc With Differential Ord2 RBC 5.08 M/ul 05/18/2016 Cbc With Differential Ord2 HGB 14.5 g/dl 05/18/2016 Cbc With Differential Ord2 HCT 43.3 % 05/18/2016 Cbc With Differential Ord2 Neut% 58.5 % 05/18/2016 Cbc With Differential Ord2 Lymph% 31.0 % 05/18/2016 Cbc With Differential Ord2 MCV 85.2 fl 05/18/2016 Cbc With Differential Ord2 Mora% 7.2 % 05/18/2016 Cbc With Differential Ord2 [...] 1.80 K/ul 05/18/2016 Cbc With Differential Ord2 Mora ABS# 0.4 K/ul 05/18/2016 Cbc With Differential Ord2 Eos ABS# 0.2 K/ul 05/18/2016 Cbc With Differential Ord2 Baso ABS# 0.0 K/ul 05/18/2016 Comp Metabolic Cun854 NA 138 mEq/L 02/19/2016 Comp Metabolic Qee600 K 3.8 mEq/L 02/19/2016 Comp Metabolic Bve275 CL 103 mEq/L 02/19/2016 Comp Metabolic Ulu862 CO2 28.0 mEq/L 02/19/2016 Comp Metabolic Bzf988 ANION GAP 11 02/19/2016 Comp Metabolic Ffl169 GLUCOSE 94 mg/dL 02/19/2016 Comp Metabolic Klp217 Creat 1.0 mg/dL 02/19/2016 Comp Metabolic Ddt421 eGFR 75 ml/min/1.73m2 02/19/2016 Comp Metabolic Hza670 BUN 18 mg/dL 02/19/2016 Comp Metabolic Bpv091 B/C Ratio 17.6 Ratio 02/19/2016 Comp Metabolic Ssj702 CALCIUM 9.6 mg/dL 02/19/2016 Comp Metabolic Fot519 ALK PHOS 93 U/L 02/19/2016 Comp Metabolic Ggb716 AST(SGOT) 23 U/L 02/19/2016 Comp Metabolic Aeo645 ALT(SGPT) 19 U/L 02/19/2016 Comp Metabolic Xwg355 BILI T 0.8 mg/dL 02/19/2016 Comp Metabolic Snr999 ALBUMIN 4.1 g/dL 02/19/2016 Comp Metabolic Jfl358 TPRO 6.8 g/dL 02/19/2016 Comp Metabolic Czg882 GLOB 2.7 g/dL 02/19/2016 Comp Metabolic Cjk341 A/G Ratio 1.5 Ratio 02/19/2016 Comp Metabolic Uli402 Osmo 277 mOsmo 02/19/2016 Lipid Ord30 CHOL 157 mg/dL 02/19/2016 Lipid Ord30 HDL 37.0 mg/dl 02/19/2016 Lipid Ord30 TRIG 150 mg/dL 02/19/2016 Lipid Ord30 LDL 90 mg/dL 02/19/2016 Lipid Ord30 C/HDL 4.2 Ratio 02/19/2016 Uric Acid Ord77 Uric A 6.0 mg/dL 02/19/2016 Cbc With Differential Ord2 WBC 5.47 [...] 28.5 pg 02/19/2016 Cbc With Differential Ord2 Mora% 9.5 % 02/19/2016 Cbc With Differential Ord2 [...] 1.91 K/ul 02/19/2016 Cbc With Differential Ord2 Mora ABS# 0.5 K/ul 02/19/2016 Cbc With Differential Ord2 Eos ABS# 0.2 K/ul 02/19/2016 Cbc With Differential Ord2 Baso ABS# 0.0 K/ul 02/19/2016 Cbc With Differential Ord2 New Analyzer Notice Please note new ref ranges starting 10-29-2015 due to implemntation of new five part differential hematolgy analyzer. 02/19/2016 Tsh Ord6 hTSH II 2.10 uIU/mL 02/19/2016 Total Psa Ord10 PSA 0.82 ng/mL 02/19/2016 Uric Acid Ord77 Uric A 6.1 mg/dL 12/16/2015 Comp Metabolic Oqf410 NA 140 mEq/L 12/16/2015 Comp Metabolic Soi652 K 4.0 mEq/L 12/16/2015 Comp Metabolic Lti321 CL 105 mEq/L 12/16/2015 Comp Metabolic Bqd851 CO2 24.0 mEq/L 12/16/2015 Comp Metabolic Fbd453 ANION GAP 15 12/16/2015 Comp Metabolic Qop626 GLUCOSE 85 mg/dL 12/16/2015 Comp Metabolic Dxx465 Creat 1.2 mg/dL 12/16/2015 Comp Metabolic Scq705 eGFR 65 ml/min/1.73m2 12/16/2015 Comp Metabolic Aft476 BUN 14 mg/dL 12/16/2015 Comp Metabolic Uif444 B/C Ratio 12.1 Ratio 12/16/2015 Comp Metabolic Mwr980 CALCIUM 9.1 mg/dL 12/16/2015 Comp Metabolic Yzp603 ALK PHOS 162 U/L 12/16/2015 Comp Metabolic Ift660 AST(SGOT) 14 U/L 12/16/2015 Comp Metabolic Jmj534 ALT(SGPT) 17 U/L 12/16/2015 Comp Metabolic Mkf546 BILI T 1.0 mg/dL 12/16/2015 Comp Metabolic Xzs691 ALBUMIN 3.4 g/dL 12/16/2015 Comp Metabolic Ebw966 TPRO 6.2 g/dL 12/16/2015 Comp Metabolic Mrd779 GLOB 2.9 g/dL 12/16/2015 Comp Metabolic Apf253 A/G Ratio 1.2 Ratio 12/16/2015 Comp Metabolic Rmw238 Osmo 279 mOsmo 12/16/2015 Cbc With Differential Ord2 WBC 5.08 K/ul 12/16/2015 Cbc With Differential Ord2 RBC 3.91 M/ul 12/16/2015 Cbc With Differential Ord2 HGB 11.0 g/dl 12/16/2015 Cbc With Differential Ord2 HCT 34.8 % 12/16/2015 Cbc With Differential Ord2 Neut% 59.3 % 12/16/2015 Cbc With Differential Ord2 Lymph% 29.9 % 12/16/2015 Cbc With Differential Ord2 MCV 89.0 fl 12/16/2015 Cbc With Differential Ord2 Mora% 7.5 % 12/16/2015 Cbc With Differential Ord2 [...] 1.52 K/ul 12/16/2015 Cbc With Differential Ord2 Mora ABS# 0.4 K/ul 12/16/2015 Cbc With Differential [...] C/HDL 4.0 Ratio 07/21/2015 Urine Protein 24Hr Pga989 U Prot 5.1 mg/dl 05/16/2015 Urine Protein 24Hr Naq384 U Prot24 71.5 mg/24hr 05/16/2015 Total Volume Urine Ihe532 TV/24hr 1400 ml 05/16/2015 Cbc With Differential [...] Differential Ord2 RDW 15.4 % 05/15/2015 Renal Kun284 NA 135 mEq/L 05/15/2015 Renal Tkd085 K 3.9 mEq/L 05/15/2015 Renal Zzc519 CL 101 mEq/L 05/15/2015 Renal Jht353 CO2 27.0 mEq/L 05/15/2015 Renal Dio714 ANION GAP 11 05/15/2015 Renal Lil220 Osmo 274 mOsmo 05/15/2015 Renal Kpx072 GLUCOSE 132 mg/dL 05/15/2015 Renal Kqa345 BUN 19 mg/dL 05/15/2015 Renal Jaw224 Creat 1.1 mg/dL 05/15/2015 Renal Fov001 eGFR 67 ml/min/1.73m2 05/15/2015 Renal Czi219 B/C Ratio 17.0 Ratio 05/15/2015 Renal Xas510 CALCIUM 9.6 mg/dL 05/15/2015 Renal Svg449 PHOS 3.0 mg/dL 05/15/2015 Renal Cxh601 ALBUMIN 4.3 g/dL 05/15/2015 Total Psa Ord10 [...] FLU VACC PRSV FREE INC ANTIG CPT-4: 61219 06/28/2016 TENIVAC TD VACCINE NO PRSRV 7/> IM CPT-4: 25504 06/28/2016 OCCULT BLOOD FECES CPT -4: 85733 02/19/2015 Vital Signs Date Vital 10/27/2017 Blood Pressure 1: 124/76 Code : 8480-6 BMI: 30.1 Code : 35733-2 Heart Rate 1 : 69 bpm Height: 6' SpO2: 95% Weight: 222 lbs 09/29/2017 Blood Pressure 1: 118/66 Code : 8480-6 BMI: 29.9 Code : 43468-9 Heart Rate 1 : 81 bpm Height: 6' SpO2: 95% Weight: 220 lbs 8 oz 09/01/2017 Blood Pressure 1: 122/82 Code : 8480-6 BMI: 29.6 Code : 83000-0 Heart Rate 1 : 75 bpm Height: 6' SpO2: 97% Weight: 218 lbs 08/03/2017 Blood Pressure 1: 120/68 Code : 8480-6 Heart Rate 1: 68 bpm Height: 6' SpO2: 94% Waist Measure (cm): 97 cm 04/26/2017 Blood Pressure 1: 122/72 Code : 8480-6 BMI: 29.4 Code : 27298-8 Heart Rate 1 : 85 bpm Height: 6' SpO2: 92% Weight: 217 lbs 01/25/2017 Blood Pressure 1: 118/78 Code : 8480-6 BMI: 29.4 Code : 68770-6 Heart Rate 1 : 72 bpm Height: 6' SpO2: 94% Temperature: 36.9 (C) / 98.5 (F) Weight: 217 lbs 10/26/2016 Blood Pressure 1: 152/86 Code : 8480-6 BMI: 29.7 Code : 86515-2 Heart Rate 1 : 58 bpm Height: 6' Weight: 219 lbs 09/27/2016 Blood Pressure 1: 138/80 Code : 8480-6 BMI: 29.4 Code : 50909-7 Heart Rate 1 : 52 bpm Height: 6' SpO2: 98% Weight: 217 lbs 06/28/2016 Blood Pressure 1: 128/86 Code : 8480-6 BMI: 29.6 Code : 95382-8 Heart Rate 1 : 69 bpm Height: 6' SpO2: 93% Weight: 218 lbs 04/27/2016 Blood Pressure 1: 118/82 Code : 8480-6 BMI: 29.3 Code : 82933-7 Heart Rate 1 : 85 bpm Height: 6' SpO2: 98% Weight: 216 lbs 02/17/2016 Blood Pressure 1: 132/80 Code : 8480-6 BMI: 28.8 Code : 76087-1 Heart Rate 1 : 94 bpm Height: 6' SpO2: 98% Weight: 212 lbs 01/20/2016 Blood Pressure 1: 120/70 Code : 8480-6 BMI: 29.7 Code : 62954-0 Heart Rate 1 : 87 bpm Height: 6' SpO2: 92% Weight: 219 lbs 01/06/2016 Blood Pressure 1: 122/88 Code : 8480-6 BMI: 28.8 Code : 18757-4 Heart Rate 1 : 83 bpm Height: [...] Code : 8480-6 BMI: 30.5 Code : 78676-1 Heart Rate 1 : 82 bpm Height: 6' SpO2: 92% Weight: 225 lbs 06/09/2015 Blood Pressure 1: 130/76 Code : 8480-6 BMI: 31.1 Code : 96971-3 Heart Rate 1 : 65 bpm Height: 6' SpO2: 96% Weight: 229 lbs 04/29/2015 Blood Pressure 1: 118/78 Code : 8480-6 BMI: 30.7 Code : 47225-2 Heart Rate 1 : 70 bpm Height: 6' Weight: 226 lbs 02/19/2015 Blood Pressure 1: 118/70 Code : 8480-6 BMI: 29.7 Code : 84222-1 Heart Rate 1 : 68 bpm Height: [...] data Encounters Encounter Performer Location Codes Date ([id number]) 24486 EST. PATIENT, LEVEL III Diagnosis: Essential (primary) hypertension[ICD10: I10] [facility] CPT-4: 83522 10/27/2017 ([id number]) 14015 EST. PATIENT, LEVEL III Diagnosis: Benign prostatic hyperplasia with lower urinary tract symptoms[ICD10 : N40.1] Diagnosis: Dysphagia, pharyngeal phase[ICD10: R13.13] [facility] CPT-4: 15397 09/29/2017 ([id number]) 87507 EST. PATIENT, LEVEL IV Diagnosis: Essential (primary) hypertension[ICD10: I10] Diagnosis: Major depressive disorder, recurrent, mild[ICD10: F33.0] Diagnosis: Sensorineural hearing loss, bilateral[ICD10: H90.3] [facility], [facility] CPT-4: 16261 09/01/2017 ([id number]) 17787 EST. PATIENT, LEVEL IV Diagnosis: Essential (primary) hypertension[ICD10: I10] Diagnosis: Major depressive disorder, recurrent, mild[ICD10: F33.0] Diagnosis: Mixed hyperlipidemia[ICD10: E78.2] [facility], [facility] CPT-4: 91484 04/26/2017 ([id number]) 83442 EST. PATIENT, LEVEL IV Diagnosis: Essential (primary) hypertension[ICD10: I10] Diagnosis: Major depressive disorder, recurrent, mild[ICD10: F33.0] Diagnosis: Urge incontinence[ICD10: N39.41] [facility], [facility] CPT-4: 80450 01/25/2017 ([id number]) 14734 EST. PATIENT, LEVEL IV Diagnosis: Essential (primary) hypertension[ICD10: I10] Diagnosis: Major depressive disorder, recurrent, mild[ICD10: F33.0] Diagnosis: Urge incontinence[ICD10: N39.41] [facility], [facility] CPT-4: 19912 10/26/2016 ([id number]) 33415 EST. PATIENT, LEVEL III Diagnosis: Essential (primary) hypertension[ICD10: I10] Diagnosis: Major depressive disorder, recurrent, mild[ICD10: F33.0] Diagnosis: Urge incontinence[ICD10: N39.41] [facility], [facility] CPT-4: 92904 09/27/2016 [id number]) [id number] EST. PATIENT, LEVEL IV Diagnosis: Essential (primary) hypertension[ICD10: I10] Diagnosis: Encounter for immunization[ICD10: Z23] Diagnosis: Laceration without foreign body of left forearm, initial encounter[ ICD10: S51.812A] Diagnosis: Laceration without foreign body of right forearm, initial encounter[ ICD10: S51.811A] Diagnosis: Major depressive disorder, recurrent, mild[ICD10: F33.0] Lesley Butcher MD, [facility] CPT-4: 90853 06/28/2016 ([id number]) [id number] EST. PATIENT, LEVEL IV Diagnosis: Essential (primary) hypertension[ICD10: I10] Diagnosis: Idiopathic gout, left ankle and foot[ICD10: M10.072] Diagnosis: Other iron deficiency anemias[ICD10: D50.8] Lesley Butcher MD, [facility] CPT-4: 05939 04/27/2016 ([id number]) [id number] EST. PATIENT, LEVEL V Diagnosis: Essential (primary) hypertension[ICD10: I10] Diagnosis: Major depressive disorder, recurrent, mild[ICD10: F33.0] Diagnosis: Idiopathic gout, left ankle and foot[ICD10: M10.072] Diagnosis: Mixed hyperlipidemia[ICD10: E78.2] Lesley Butcher MD, [facility] CPT-4: 88054 02/17/2016 ([id number]) [id number] EST. PATIENT, LEVEL IV Diagnosis: Idiopathic gout, left ankle and foot[ICD10: M10.072] Diagnosis: Major depressive disorder, single episode, unspecified[ICD10: F32.9] Diagnosis: Localized edema[ICD10: R60.0] Merline Butcher MD, [facility] CPT-4: 11170 01/20/2016 [id number] EST. PATIENT, LEVEL IV Diagnosis: Idiopathic gout, left ankle and foot[ICD10: M10.072] Diagnosis: Essential (primary) hypertension[ICD10: I10] Diagnosis: Major depressive disorder, single episode, unspecified[ICD10: F32.9] Lesley Butcher MD, [facility] CPT-4: 40244 01/06/2016 69053 EST. PATIENT, LEVEL IV Diagnosis: Weakness[ICD10: R53.1] Diagnosis: Gout, unspecified[ICD10: M10.9] Diagnosis: Hypotension, unspecified[ICD10: I95.9] Lesley Butcher MD, [facility] CPT-4: 09978 12/16/2015 ([id number]) Patient admitted to the hospital from clinic (NO CHARGE) Diagnosis: Hypoxemia[ICD10: R09.02] Diagnosis: Weakness[ICD10: R53.1] Diagnosis: Dyspnea, unspecified[ICD10: R06.00] Mady Butcher MD, [facility] CPT-4: 68990X 11/27/2015 ([id number]) 45097 EST. PATIENT, LEVEL III Diagnosis: Essential (primary) hypertension[ICD10: I10] Diagnosis: Gastro-esophageal reflux disease without esophagitis[ICD10: K21.9] Lesley Butcher MD, [facility] CPT-4: 56744 07/30/2015 ([id number]) 44362 EST. PATIENT, LEVEL III Diagnosis: ESSENTIAL HYPERTENSION[ICD9: 401.9] Merline Butcher MD, [facility] CPT-4: 23070 06/09/2015 ([id number]) 51880 EST. PATIENT, LEVEL III Diagnosis: ESSENTIAL HYPERTENSION[ICD9: 401.9] Lesley Butcher MD, [facility] CPT-4: 22039 04/29/2015 ([id number]) OFFICE/OUTPATIENT VISIT NEW Diagnosis: ESSENTIAL HYPERTENSION[ICD9: 401.9] Diagnosis: DEPRESSIVE DISORDER NEC[ICD9: 311] Diagnosis: Enlarged prostate[ICD9: 600.00] Diagnosis: Nasal inflammation due to allergen[ICD9: 477.9] Lesley Butcher MD, [facility] CPT-4: 24483 02/19/2015 Plan of Care Planned Activity Notes Codes Status Date Visit Plan: Hypertension - well controlled - continue with current medications, continue with no added salt diet. Pt has been encouraged to exercise daily. The pt has been advised to call the office if there are any acute concerns about change in blood pressure readings at home. 10/27/2017 Appointment: Lesley Butcher WPtel: [address] [place], [place] [id number] (15 min) Moderate 10/27/2017 Patient Education: Patient Medication Summary Completed 10/27/2017 Referral: External, Ordering Provider Referral Initiated 10/12/2017 Visit Plan: BPH - continue with dutasteride and flomax Dysphagia - referral to Dr. Kumar for EGD - question stricture - dysphagia intermittently - hx of stricture. 09/29/2017 Appointment: Lesley Butcher WPtel: [address] [place], [place] [id number] (15 min) Moderate 09/29/2017 Patient Education: Patient Medication Summary Completed 09/29/2017 Care Plan: Referral Order SNOMED-CT : 557360431 Pending 09/29/2017 Visit Plan: Hypertension - well [...] recommended patient to have an evaluation at [facility] to see if he has potential for cochlear implant. 09/01/2017 [facility] [phone] [phone] (15 min) Moderate 09/01/2017 Patient Education: Patient Medication Summary Completed 09/01/2017 Care Plan: Referral Order SNOMED-CT : [id number] Pending 09/01/2017 Visit Plan: Medicare Exam - [...] surrogate. 08/03/2017 [facility] [phone] [phone] [facility] - Welcome to [facility] visit 08/03/2017 [...] medications. 04/26/2017 Appointment: Lesley Butcher WPtel: [phone] [facility] (15 min) Moderate 04/26/2017 Patient Education: [...] 10mg daily. 01/25/2017 App[facility]ment: [facility] [phone] [phone] (30 min) Complex 01/25/2017 Patient Education: [...] detrol [place] 10/26/2016 Appointment: Lesley Butcher WPtel: [address] [place], [place] [id number] (15 min) Moderate 10/26/2016 Patient Education: [...] occur. 09/27/2016 Appointment: Lesley Butcher WPtel: [phone] [facility] (15 min) Moderate 09/27/2016 Patient Education: [...] shelli andrea 06/28/2016 Appointment: Lesley Butcher WPtel: [facility] (15 min) Moderate 06/28/2016 Patient Education: [...] plan. 02/17/2016 App[facility]ment: [facility] [phone] [phone] (30 min) Complex 02/17/2016 Patient Education: Patient [...] Completed 12/16/2015 [facility]ment: [facility] [phone] [phone] (15 min) Moderate 12/04/2015 Appointment: [facility] Buthcer [facility] [phone] [phone] [place] (15 min) Moderate 12/02/2015 Visit [...] PHARMACY 07/30/2015 App[facility]ment: [facility] [phone] [facility] [place] (15 min) Moderate 07/30/2015 Patient [...] home. 04/29/2015 App[facility]ment: [facility] [phone] [phone] (15 min) Moderate 04/29/2015 Patient Education: [...] External, Ordering Provider Referral Appointment Requested Referral: [facility] 09/12 Referral info faxed Appointment Requested Referral: [facility] Referral Appointment Requested Instructions Comment . [...] does not want medication at this time. increase citalopram to 40mg daily . Hypertension [...] eye drops-angela Vang-increase dexamethasone x 1 month increase oxybutynin to 10mg daily. . Hypertension [...] dose of oxybutynin to 10mg daily. . BPH - continue with dutasteride and flomax Dysphagia - referral to Dr. Kumar for EGD - question stricture - dysphagia intermittently - hx of stricture. . Admission to Hospital - Dr. Butcher [...] TREATMENT AND EVALUATION OF THE ACUTE ILLNESS. CHECK FASTING LABS DEXAMETHASONE 0.5MG-TAKE A FULL [...] exam, and the assessment and plan. . Gout Attack - pt given rx [...] GET THE FLU SHOT AT THE PHARMACY Do physical therapy once the gout gets [...] Notify clinic with any questions or concerns. Do physical therapy once the gout gets [...] incontinence - rx for detrol [place] . Hypertension - well controlled - continue [...] recommended patient to have an evaluation at [facility] to see if he has potential [...] if symptoms of urinary retention occur. . Admission to Hospital - Dr. Butcher [...]
--- OUTSIDE RECORDS SUMMARY | 2018-12-19 13:04 | XMS REPORT | CCD ---
Author Author [facility] Organization [facility] Address [address] [place] [address] Phone Care Team Providers Care Capping Machine Operator Name Role Phone PP Unavailable CCM Unavailable Summary Purpose Interface Exchange Insurance Providers Payer name Policy type / Coverage type Covered alliance party ID Effective Begin Date Effective End Date WPS Medicare Part B Medicare Part B [id number] Unknown Unknown [facility] Medicare Part B [id number] Unknown Unknown Family history Father Diagnosis Age At Onset Hypertension Unknown Coronary Artery Disease Unknown Sister Diagnosis Age At Onset Heart disease Unknown Mother Diagnosis Age At Onset Coronary Artery Disease Unknown Hypertension Unknown Social History Social History Element Codes Description Effective Dates Marital status Unknown 02/19/2015 Number of children Unknown 2 02/19/2015 Employment Unknown Retired 02/19/[address]: 918297908 Has never smoked or chewed tobacco 02/19/2015 [...] Instructions pantoprazole 40 mg tablet,delayed release RxNorm: 583868 TAKE ONE TABLET BY MOUTH ONCE DAILY AT BEDTIME 11/07/2017 No Stop Date Active allopurinol 100 mg tablet RxNorm: 151261 TAKE ONE TABLET BY MOUTH ONCE DAILY 10/03/2017 No Stop Date Active pantoprazole 40 mg tablet,delayed release RxNorm: 856665 1 Tablet(s) PO BID 09/01/2017 05/28/2018 Active Vitamin B-6 100 mg tablet RxNorm: 690983 1 Tablet(s) PO daily 09/01/2017 No Stop Date Active dutasteride 0.5 mg capsule RxNorm: 384690 1 Capsule(s) PO QPM 09/01/2017 08/26/2018 Active spironolactone 25 mg tablet RxNorm: 671279 TAKE ONE TABLET BY MOUTH ONCE DAILY 08/15/2017 No Stop Date Active citalopram 40 mg tablet RxNorm: 516796 TAKE ONE TABLET BY MOUTH ONCE DAILY 08/08/2017 05/04/2018 Active dexamethasone 0.5 mg tablet RxNorm: 646135 TAKE ONE TABLET BY MOUTH ONCE DAILY 08/08/2017 11/05/2017 Inactive clonazepam 1 mg tablet RxNorm: 198792 1 Tablet(s) PO QHS AND 1 TAB PO TID PRN 05/12/2017 05/13/2017 Inactive clonazepam 1 mg tablet RxNorm: 500702 TAKE ONE TABLET BY MOUTH ONCE DAILY AT BEDTIME AND ONE THREE TIMES DAILY NEEDED 05/12/2017 08/09/2017 Inactive oxybutynin chloride ER 10 mg tablet,extended release 24 hr RxNorm: 418491 1 Tablet (s) PO daily 04/29/2017 08/02/2017 Inactive Flomax 0.4 mg capsule RxNorm: 768939 TAKE ONE CAPSULE BY MOUTH ONCE DAILY IN THE EVENING 02/14/2017 11/10/2017 Inactive dexamethasone 0.5 mg tablet RxNorm: 463678 TAKE ONE TABLET BY MOUTH ONCE DAILY 02/14/2017 04/14/2017 Inactive pantoprazole 40 mg tablet,delayed release RxNorm: 999981 TAKE ONE TABLET BY MOUTH ONCE DAILY AT BEDTIME 02/14/20172016 Inactive oxybutynin chloride ER 10 mg tablet,extended release 24 hr RxNorm: 066709 1 Tablet (s) PO daily 01/25/2017 04/24/2017 Inactive dexamethasone 0.5 mg tablet RxNorm: 044430 TAKE ONE TABLET BY MOUTH ONCE DAILY 11/10/2016 12/09/2016 Inactive oxybutynin chloride ER 5 mg tablet,extended release 24 hr RxNorm: 393193 1 Tablet( s) PO daily 10/28/2016 10/27/2016 Inactive oxybutynin chloride ER 5 mg tablet,extended release 24 hr RxNorm: 404633 1 Tablet( s) PO daily 10/28/2016 01/24/2017 Inactive Detrol LA 2 mg capsule,extended release RxNorm: 139875 1 Capsule(s) PO QPM 10/26/2016 10/27/2016 Inactive clonazepam 1 mg tablet RxNorm: 661263 1 Tablet(s) PO QHS AND 1 TAB PO TID PRN 10/20/2016 04/17/2017 Inactive dexamethasone 0.5 mg tablet RxNorm: 778270 TAKE ONE TABLET BY MOUTH ONCE DAILY 10/06/2016 11/04/2016 Inactive allopurinol 100 mg tablet RxNorm: 187785 1 Tablet(s) PO daily 09/30/2016 09/24/2017 Inactive Vesicare 5 mg tablet RxNorm: 202565 1 Tablet(s) PO QPM 201512/12/2016 Inactive spironolactone 25 mg tablet RxNorm: 985541 1 Tablet(s) PO daily 08/06/2016 07/31/2017 Inactive citalopram 40 mg tablet RxNorm: 435105 1 Tablet(s) PO daily 09/201606/22/2017 Inactive dexamethasone 0.5 mg tablet RxNorm: 297469 1/2 Tablet(s) PO daily 04/27/2016 No Stop Date Active Plavix 75 mg tablet RxNorm: 905378 1 Tablet(s) PO daily 2015 No Stop Date Active iron ER 159 mg (45 mg iron) tablet,extended release RxNorm: 300735 1 Tablet(s) PO daily 04/27/2016 08/31/2017 Inactive allopurinol 100 mg tablet RxNorm: 642694 1 Tablet(s) PO daily 04/27/2016 09/29/2016 Inactive clonazepam 1 mg tablet RxNorm: 748319 1 Tablet(s) PO QHS and 1 tab po TID prn 04/14/2016 10/07/2016 Inactive allopurinol 100 mg tablet RxNorm: 494854 1 Tablet(s) PO daily 02/17/2016 04/26/2016 Inactive citalopram 20 mg tablet RxNorm: 958041 1 Tablet(s) PO daily 02/201606/27/2016 Inactive Flomax 0.4 mg capsule RxNorm: 351801 1 Capsule(s) PO QPM 201501/13/2017 Inactive [SAVINGS FOR NON-COVERED DRUGS -- BIN:[id number], PCN: ASPROD1, Group: XXXXX, ID # XXXXXXX, Questions: . THIS IS NOT INSURANCE.] pantoprazole 40 mg tablet,delayed release RxNorm: 288582 1 Tablet(s) PO QHS 01/20/2016 01/13/2017 Inactive Colcrys 0.6 mg tablet RxNorm: 242274 1 Tablet(s) PO daily 201503/05/2016 Inactive take daily x 7 days then daily as needed for gout flair colchicine 0.6 mg tablet RxNorm: 443638 1 Tablet(s) PO BID 01/01/2016 Inactive doxycycline hyclate 100 mg tablet RxNorm: 119391 1 Tablet(s) PO BID 12/19/2015 12/28/2015 Inactive doxycycline hyclate 100 mg tablet RxNorm: 612194 1 Tablet(s) PO BID 12/19/2015 12/18/2015 Inactive allopurinol 100 mg tablet RxNorm: 118410 1 Tablet(s) PO daily 12/16/2015 02/16/2016 Inactive colchicine 0.6 mg tablet RxNorm: 316701 Tablet(s) PO 1.2 mg PO in the morning and 0.6 mg at night for 2 days. 12/16/2015 Inactive allopurinol 100 mg tablet RxNorm: 555803 1 Tablet(s) PO daily 12/16/2015 12/15/2015 Inactive Protonix 40 mg tablet,delayed release RxNorm: 069734 1 Tablet(s) PO daily 12/16/2015 01/14/2016 Inactive Bactrim DS 800 mg-160 mg tablet RxNorm: 195933 1 Tablet(s) PO BID 12/16/2015 12/18/2015 Inactive colchicine 0.6 mg tablet RxNorm: 960086 Tablet(s) PO 1.2 mg for the first dose and 0.6 mg an hour after 12/15/20152015 Inactive dexamethasone 0.5 mg tablet RxNorm: 021884 1 Tablet(s) PO 12/1202/09/2016 Inactive Plavix 75 mg tablet RxNorm: 074191 1 Tablet(s) PO every other day 12/12/2015 04/09/2016 Inactive nitroglycerin 0.4 mg sublingual tablet RxNorm: 362763 1 Tablet(s) SL x3 in 15 min as needed 12/12/2015 04/26/2016 Inactive clonazepam 1 mg tablet RxNorm: 319785 1 Tablet(s) PO QHS and 1 tab po TID prn 12/11/2015 12/03/2016 Inactive Ionia 5 mg-325 mg tablet RxNorm: 877227 1-2 Tablet(s) PO Q6 as needed 12/11/2015 09/26/2016 Inactive clonazepam 1 mg tablet RxNorm: 001685 1 Tablet(s) PO QHS and 1 tab po TID prn 12/04/2015 12/10/2015 Inactive Flomax 0.4 mg capsule RxNorm: 428833 1 Capsule(s) PO QPM 201401/19/2016 Inactive [SAVINGS FOR NON-COVERED DRUGS -- BIN:727929, PCN: ASPROD1, Group: XXXXX, ID # XXXXXXX, Questions: . THIS IS NOT INSURANCE.] Flomax 0.4 mg capsule RxNorm: 859441 1 Capsule(s) PO QPM 201409/21/2015 Inactive [SAVINGS FOR NON-COVERED DRUGS -- BIN:368971, PCN: ASPROD1, Group: XXXXX, ID # XXXXXXX, Questions: . THIS IS NOT INSURANCE.] clonazepam 1 mg tablet RxNorm: 853081 1 Tablet(s) PO QHS 201412/03/2015 Inactive coenzyme Q10 10 mg tablet RxNorm: 614906 1 Tablet(s) PO daily 07/30/2015 01/05/2016 Inactive spironolactone 25 mg tablet RxNorm: 516644 1 Tablet(s) PO daily 07/28/2015 07/21/2016 Inactive spironolactone 25 mg tablet RxNorm: 273813 1 Tablet(s) PO daily 07/22/2015 07/27/2015 Inactive clonazepam 1 mg tablet RxNorm: 716198 1 Tablet(s) PO QHS 201408/28/2015 Inactive losartan 25 mg tablet RxNorm: 727235 1 Tablet(s) PO daily 201403/20/2015 Inactive Flonase Allergy Relief 50 mcg/actuation nasal spray, suspension RxNorm: 1 Ramey NASAL BID 02/19/2015 04/26/2016 Inactive [SAVINGS FOR NON-COVERED DRUGS -- BIN:135270, PCN: ASPROD1, Group: XXXXX, ID# XXXXXXX, Questions: [phone]. THIS IS NOT INSURANCE.] Flomax 0.4 mg capsule RxNorm: 115527 1 Capsule(s) PO QPM 201409/15/2015 Inactive [SAVINGS FOR NON-COVERED DRUGS -- BIN:389012, PCN: ASPROD1, Group: XXXXX, ID # XXXXXXX, Questions: . THIS IS NOT INSURANCE.] citalopram 20 mg tablet RxNorm: 685063 1 Tablet(s) PO daily 03/201503/20/2015 Inactive atenolol 25 mg tablet RxNorm: 508651 1 Tablet(s) PO daily 201403/20/2015 Inactive Lipitor 20 mg tablet RxNorm: 586454 1 Tablet(s) PO daily 201403/20/2015 Inactive glucosamine HCl 1,500 mg tablet RxNorm: 481265 1 Tablet(s) with 1200 mg chrondroitin PO daily No Start Date Active krill oil oral RxNorm : 57291 oral No Start Date Active cetirizine 10 mg tablet RxNorm: 8692659 1 Tablet(s) PO daily No Start Date Active losartan 50 mg tablet RxNorm: 977669 1 Tablet(s) PO daily No Start Date Active aspirin 81 mg tablet,delayed release RxNorm: 147482 1 Tablet(s) PO daily No Start Date Active Vitamin B-12 1,000 mcg tablet RxNorm: 257386 6 Tablet(s) PO every other day No Start Date Active Aleve 220 mg tablet RxNorm: 679853 Tablet(s) PO as needed No Start Date Active Vitamin D3 1,000 unit capsule RxNorm: 137098 2 Capsule(s) PO daily No Start Date Active Centrum Complete oral RxNorm: 08454 oral No Start Date Active ranitidine 150 mg tablet RxNorm: 191709 1 Tablet(s) PO TID No Start Date 12/11/2015 Inactive Ionia 5 mg-325 mg tablet RxNorm: 456465 1-2 Tablet(s) PO Q6 as needed No Start Date 12/10/2015 Inactive Vitamin B-6 100 mg tablet RxNorm: 043596 1 Tablet(s) PO TID No Start Date 08/31/2017 Inactive spironolactone 25 mg tablet RxNorm: 197394 1 Tablet(s) PO daily No Start Date 07/21/2015 Inactive Vitamin D3 oral RxNorm : 2418 oral No Start Date 02/17/2016 Inactive clonazepam 1 mg tablet RxNorm: 284632 1 Tablet(s) PO daily No Start Date 05/22/2015 Inactive Glucosamine oral RxNorm: 4845 oral No Start Date 04/26/2016 Inactive Plavix 75 mg tablet RxNorm: 731893 1 Tablet(s) PO every other day No Start Date 12/11/2015 Inactive Osteo Bi-Flex oral RxNorm: 3684623 oral No Start Date 09/01/2017 Inactive iron ER 159 mg (45 mg iron) tablet,extended release RxNorm: 332045 1 Tablet(s) PO BID No Start Date 04/26/2016 Inactive amlodipine 5 mg tablet RxNorm: 409863 1 Tablet(s) PO daily No Start Date 01/05/2016 Inactive dexamethasone 0.5 mg tablet RxNorm: 983495 1 Tablet(s) PO No Start Date 12/11/2015 Inactive colchicine 0.6 mg tablet RxNorm: 784015 Tablet(s) PO 1.2 mg for the first dose and 0.6 mg an hour after No Start Date Inactive nitroglycerin 0.4 mg sublingual tablet RxNorm: 219440 1 Tablet(s) SL x3 in 15 min as needed No Start Date 12/11/2015 Inactive Fish Oil 1,000 mg capsule RxNorm: 1 Capsule(s) PO daily No Start Date 04/26/2016 Inactive Ecotrin Low Strength 81 mg tablet,enteric coated RxNorm: 1397385 1 Tablet(s) PO daily No Start Date [...] 30.8 pg 04/11/2017 Cbc With Differential Ord2 Perkins% 8.1 % 04/11/2017 Cbc With Differential Ord2 MCHC 34.4 pg 04/11/2017 Cbc With Differential Ord2 Eos% 3.0 % 04/11/2017 Cbc With Differential Ord2 Baso% 0.2 % 04/11/2017 Cbc With Differential Ord2 PLT 183 K/ul 04/11/2017 Cbc With Differential Ord2 Neut ABS# 3.69 K/ul 04/11/2017 Cbc With Differential Ord2 RDW 15.3 % 04/11/2017 Cbc With Differential Ord2 Lymph ABS# 1.91 K/ul 04/11/2017 Cbc With Differential Ord2 Perkins ABS# 0.5 K/ul 04/11/2017 Cbc With Differential Ord2 Eos ABS# 0.2 K/ul 04/11/2017 Cbc With Differential Ord2 Baso ABS# 0.0 K/ul 04/11/2017 Comp Metabolic Uec668 NA 140 mEq/L 04/11/2017 Comp Metabolic Yoi088 K 4.1 mEq/L 04/11/2017 Comp Metabolic Crd239 CL 105 mEq/L 04/11/2017 Comp Metabolic Gys008 CO2 26.0 mEq/L 04/11/2017 Comp Metabolic Cap155 ANION GAP 13 04/11/2017 Comp Metabolic Nhg305 GLUCOSE 88 mg/dL 04/11/2017 Comp Metabolic Hvm563 Creat 1.1 mg/dL 04/11/2017 Comp Metabolic Lor458 eGFR 66 ml/min/1.73m2 04/11/2017 Comp Metabolic Jjr158 BUN 18 mg/dL 04/11/2017 Comp Metabolic Xlb834 B/C Ratio 15.9 Ratio 04/11/2017 Comp Metabolic Atv541 CALCIUM 9.0 mg/dL 04/11/2017 Comp Metabolic Svk740 ALK PHOS 72 U/L 04/11/2017 Comp Metabolic Eho159 AST(SGOT) 22 U/L 04/11/2017 Comp Metabolic Kac048 ALT(SGPT) 26 U/L 04/11/2017 Comp Metabolic Nif301 BILI T 1.0 mg/dL 04/11/2017 Comp Metabolic Gmy672 ALBUMIN 4.0 g/dL 04/11/2017 Comp Metabolic Ftz079 TPRO 6.4 g/dL 04/11/2017 Comp Metabolic Mmh660 GLOB 2.4 g/dL 04/11/2017 Comp Metabolic Oik196 A/G Ratio 1.6 Ratio 04/11/2017 Comp Metabolic Ekr664 Osmo 281 mOsmo 04/11/2017 Vitamin D 25 Oh Sly5641 VITAMIN D, 25 HYDROXY 65.52 ng/mL Cbc [...] 28.5 pg 05/18/2016 Cbc With Differential Ord2 Perkins% 7.2 % 05/18/2016 Cbc With Differential Ord2 [...] 1.80 K/ul 05/18/2016 Cbc With Differential Ord2 Perkins ABS# 0.4 K/ul 05/18/2016 Cbc With Differential Ord2 Eos ABS# 0.2 K/ul 05/18/2016 Cbc With Differential Ord2 Baso ABS# 0.0 K/ul 05/18/2016 Magnesium Ord90 Mag 2.0 mg/dL 05/18/2016 Renal Otb009 NA 139 mEq/L 05/18/2016 Renal Vca942 K 4.0 mEq/L 05/18/2016 Renal Fgh353 CL 104 mEq/L 05/18/2016 Renal Kxy439 CO2 27.0 mEq/L 05/18/2016 Renal Nsc907 ANION GAP 12 05/18/2016 Renal Rse050 Osmo 279 mOsmo 05/18/2016 Renal Agz666 GLUCOSE 91 mg/dL 05/18/2016 Renal Fzq674 BUN 18 mg/dL 05/18/2016 Renal Xph326 Creat 1.3 mg/dL 05/18/2016 Renal Cbz434 eGFR 59 ml/min/1.73m2 05/18/2016 Renal Cfi045 B/C Ratio 14.3 Ratio 05/18/2016 Renal Gix595 CALCIUM 9.3 mg/dL 05/18/2016 Renal Wux759 PHOS 3.2 mg/dL 05/18/2016 Renal Mje914 ALBUMIN 4.2 g/dL 05/18/2016 Random Urine Protein/Creatinine Ratio Xcd5636 U Prot 15.0 mg/dl 05/18/2016 Random Urine Protein/Creatinine Ratio Uhb3215 U CREAT 141.0 mg/dL 05/18/2016 Random Urine Protein/Creatinine Ratio Muq9536 R MTP/Creat Ratio 0.11 05/18/2016 Urinalysis Ord28 [...] 28.5 pg 02/19/2016 Cbc With Differential Ord2 Perkins% 9.5 % 02/19/2016 Cbc With Differential Ord2 [...] 1.91 K/ul 02/19/2016 Cbc With Differential Ord2 Perkins ABS# 0.5 K/ul 02/19/2016 Cbc With Differential Ord2 Eos ABS# 0.2 K/ul 02/19/2016 Cbc With Differential Ord2 Baso ABS# 0.0 K/ul 02/19/2016 Cbc With Differential Ord2 New Analyzer Notice Please note new ref ranges starting 10-29-2015 due to implemntation of new five part differential hematolgy analyzer. 02/19/2016 Tsh Ord6 hTSH II 2.10 uIU/mL 02/19/2016 Comp Metabolic Rnl686 NA 138 mEq/L 02/19/2016 Comp Metabolic Xgx164 K 3.8 mEq/L 02/19/2016 Comp Metabolic Mcv874 CL 103 mEq/L 02/19/2016 Comp Metabolic Xee780 CO2 28.0 mEq/L 02/19/2016 Comp Metabolic Xkw524 ANION GAP 11 02/19/2016 Comp Metabolic Pjb597 GLUCOSE 94 mg/dL 02/19/2016 Comp Metabolic Miw518 Creat 1.0 mg/dL 02/19/2016 Comp Metabolic Alv868 eGFR 75 ml/min/1.73m2 02/19/2016 Comp Metabolic Lto486 BUN 18 mg/dL 02/19/2016 Comp Metabolic Flg935 B/C Ratio 17.6 Ratio 02/19/2016 Comp Metabolic Vrq781 CALCIUM 9.6 mg/dL 02/19/2016 Comp Metabolic Wah016 ALK PHOS 93 U/L 02/19/2016 Comp Metabolic Kst416 AST(SGOT) 23 U/L 02/19/2016 Comp Metabolic Mbu565 ALT(SGPT) 19 U/L 02/19/2016 Comp Metabolic Szo014 BILI T 0.8 mg/dL 02/19/2016 Comp Metabolic Kfl394 ALBUMIN 4.1 g/dL 02/19/2016 Comp Metabolic Cyy356 TPRO 6.8 g/dL 02/19/2016 Comp Metabolic Kyk123 GLOB 2.7 g/dL 02/19/2016 Comp Metabolic Dyb151 A/G Ratio 1.5 Ratio 02/19/2016 Comp Metabolic Dfx730 Osmo 277 mOsmo 02/19/2016 Uric Acid Ord77 Uric A 6.0 mg/dL 02/19/2016 Total Psa Ord10 PSA 0.82 ng/mL 02/19/2016 Comp Metabolic Sbc920 NA 140 mEq/L 12/16/2015 Comp Metabolic Vle594 K 4.0 mEq/L 12/16/2015 Comp Metabolic Ltb996 CL 105 mEq/L 12/16/2015 Comp Metabolic Zko599 CO2 24.0 mEq/L 12/16/2015 Comp Metabolic Tgc192 ANION GAP 15 12/16/2015 Comp Metabolic Afm269 GLUCOSE 85 mg/dL 12/16/2015 Comp Metabolic Rop442 Creat 1.2 mg/dL 12/16/2015 Comp Metabolic Wah512 eGFR 65 ml/min/1.73m2 12/16/2015 Comp Metabolic Vni707 BUN 14 mg/dL 12/16/2015 Comp Metabolic Fjs476 B/C Ratio 12.1 Ratio 12/16/2015 Comp Metabolic Qiy732 CALCIUM 9.1 mg/dL 12/16/2015 Comp Metabolic Adn597 ALK PHOS 162 U/L 12/16/2015 Comp Metabolic Xjk508 AST(SGOT) 14 U/L 12/16/2015 Comp Metabolic Lso311 ALT(SGPT) 17 U/L 12/16/2015 Comp Metabolic Phn151 BILI T 1.0 mg/dL 12/16/2015 Comp Metabolic Cvr716 ALBUMIN 3.4 g/dL 12/16/2015 Comp Metabolic Mbx161 TPRO 6.2 g/dL 12/16/2015 Comp Metabolic Kkc049 GLOB 2.9 g/dL 12/16/2015 Comp Metabolic Lro130 A/G Ratio 1.2 Ratio 12/16/2015 Comp Metabolic Oew678 Osmo 279 mOsmo 12/16/2015 Uric Acid Ord77 [...] 28.1 pg 12/16/2015 Cbc With Differential Ord2 Perkins% 7.5 % 12/16/2015 Cbc With Differential Ord2 MCHC 31.6 pg 12/16/2015 Cbc With Differential Ord2 Eos% 3.1 % 12/16/2015 Cbc With Differential Ord2 Baso% 0.2 % 12/16/2015 Cbc With Differential Ord2 PLT 231 K/ul 12/16/2015 Cbc With Differential Ord2 RDW 14.7 % 12/16/2015 Cbc With Differential Ord2 Neut ABS# 3.01 K/ul 12/16/2015 Cbc With Differential Ord2 Lymph ABS# 1.52 K/ul 12/16/2015 Cbc With Differential Ord2 Perkins ABS# 0.4 K/ul 12/16/2015 Cbc With Differential [...] C/HDL 4.0 Ratio 07/21/2015 Urine Protein 24Hr Zxq767 U Prot 5.1 mg/dl 05/16/2015 Urine Protein 24Hr Jhc343 U Prot24 71.5 mg/24hr 05/16/2015 Total Volume Urine Nch844 TV/24hr 1400 ml 05/16/2015 Cbc With Differential [...] Differential Ord2 RDW 15.4 % 05/15/2015 Renal Ult972 NA 135 mEq/L 05/15/2015 Renal Vir052 K 3.9 mEq/L 05/15/2015 Renal Znb296 CL 101 mEq/L 05/15/2015 Renal Mqs860 CO2 27.0 mEq/L 05/15/2015 Renal Jfw818 ANION GAP 11 05/15/2015 Renal Iji392 Osmo 274 mOsmo 05/15/2015 Renal Fit992 GLUCOSE 132 mg/dL 05/15/2015 Renal Alq027 BUN 19 mg/dL 05/15/2015 Renal Zdk250 Creat 1.1 mg/dL 05/15/2015 Renal Ohe896 eGFR 67 ml/min/1.73m2 05/15/2015 Renal Mbk977 B/C Ratio 17.0 Ratio 05/15/2015 Renal Tnh501 CALCIUM 9.6 mg/dL 05/15/2015 Renal Dgw975 PHOS 3.0 mg/dL 05/15/2015 Renal Top280 ALBUMIN 4.3 g/dL 05/15/2015 Total Psa Ord10 [...] FLU VACC PRSV FREE INC ANTIG CPT-4: 35790 06/28/2016 TENIVAC TD VACCINE NO PRSRV 7/> IM CPT-4: 10901 06/28/2016 OCCULT BLOOD FECES CPT -4: 67364 02/19/2015 Vital Signs Date Vital 10/27/2017 Blood Pressure 1: 124/76 Code : 8480-6 BMI: 30.1 Code : 05166-3 Heart Rate 1 : 69 bpm Height: 6' SpO2: 95% Weight: 222 lbs 09/29/2017 Blood Pressure 1: 118/66 Code : 8480-6 BMI: 29.9 Code : 93968-6 Heart Rate 1 : 81 bpm Height: 6' SpO2: 95% Weight: 220 lbs 8 oz 09/01/2017 Blood Pressure 1: 122/82 Code : 8480-6 BMI: 29.6 Code : 26011-2 Heart Rate 1 : 75 bpm Height: 6' SpO2: 97% Weight: 218 lbs 08/03/2017 Blood Pressure 1: 120/68 Code : 8480-6 Heart Rate 1: 68 bpm Height: 6' SpO2: 94% Waist Measure (cm): 97 cm 04/26/2017 Blood Pressure 1: 122/72 Code : 8480-6 BMI: 29.4 Code : 12597-5 Heart Rate 1 : 85 bpm Height: 6' SpO2: 92% Weight: 217 lbs 01/25/2017 Blood Pressure 1: 118/78 Code : 8480-6 BMI: 29.4 Code : 35338-7 Heart Rate 1 : 72 bpm Height: 6' SpO2: 94% Temperature: 36.9 (C) / 98.5 (F) Weight: 217 lbs 10/26/2016 Blood Pressure 1: 152/86 Code : 8480-6 BMI: 29.7 Code : 77780-0 Heart Rate 1 : 58 bpm Height: 6' Weight: 219 lbs 09/27/2016 Blood Pressure 1: 138/80 Code : 8480-6 BMI: 29.4 Code : 86289-3 Heart Rate 1 : 52 bpm Height: 6' SpO2: 98% Weight: 217 lbs 06/28/2016 Blood Pressure 1: 128/86 Code : 8480-6 BMI: 29.6 Code : 44902-0 Heart Rate 1 : 69 bpm Height: 6' SpO2: 93% Weight: 218 lbs 04/27/2016 Blood Pressure 1: 118/82 Code : 8480-6 BMI: 29.3 Code : 34458-7 Heart Rate 1 : 85 bpm Height: 6' SpO2: 98% Weight: 216 lbs 02/17/2016 Blood Pressure 1: 132/80 Code : 8480-6 BMI: 28.8 Code : 28161-0 Heart Rate 1 : 94 bpm Height: 6' SpO2: 98% Weight: 212 lbs 01/20/2016 Blood Pressure 1: 120/70 Code : 8480-6 BMI: 29.7 Code : 52259-7 Heart Rate 1 : 87 bpm Height: 6' SpO2: 92% Weight: 219 lbs 01/06/2016 Blood Pressure 1: 122/88 Code : 8480-6 BMI: 28.8 Code : 86949-0 Heart Rate 1 : 83 bpm Height: [...] Code : 8480-6 BMI: 30.5 Code : 72356-0 Heart Rate 1 : 82 bpm Height: 6' SpO2: 92% Weight: 225 lbs 06/09/2015 Blood Pressure 1: 130/76 Code : 8480-6 BMI: 31.1 Code : 12719-7 Heart Rate 1 : 65 bpm Height: 6' SpO2: 96% Weight: 229 lbs 04/29/2015 Blood Pressure 1: 118/78 Code : 8480-6 BMI: 30.7 Code : 72502-4 Heart Rate 1 : 70 bpm Height: 6' Weight: 226 lbs 02/19/2015 Blood Pressure 1: 118/70 Code : 8480-6 BMI: 29.7 Code : 89834-9 Heart Rate 1 : 68 bpm Height: [...] data Encounters Encounter Performer Location Codes Date ([id number]) 67254 EST. PATIENT, LEVEL III Diagnosis: Essential (primary) hypertension[ICD10: I10] [facility] CPT-4: 61842 10/27/2017 ([id number]) 42908 EST. PATIENT, LEVEL III Diagnosis: Benign prostatic hyperplasia with lower urinary tract symptoms[ICD10 : N40.1] Diagnosis: Dysphagia, pharyngeal phase[ICD10: R13.13] [facility] CPT-4: 07286 09/29/2017 ([id number]) 75686 EST. PATIENT, LEVEL IV Diagnosis: Essential (primary) hypertension[ICD10: I10] Diagnosis: Major depressive disorder, recurrent, mild[ICD10: F33.0] Diagnosis: Sensorineural hearing loss, bilateral[ICD10: H90.3] [facility], [facility] CPT-4: 73392 09/01/2017 ([id number]) 38923 EST. PATIENT, LEVEL IV Diagnosis: Essential (primary) hypertension[ICD10: I10] Diagnosis: Major depressive disorder, recurrent, mild[ICD10: F33.0] Diagnosis: Mixed hyperlipidemia[ICD10: E78.2] [facility] MD, [facility] CPT-4: 91496 04/26/2017 ([id number]) 56371 EST. PATIENT, LEVEL IV Diagnosis: Essential (primary) hypertension[ICD10: I10] Diagnosis: Major depressive disorder, recurrent, mild[ICD10: F33.0] Diagnosis: Urge incontinence[ICD10: N39.41] [facility], [facility] CPT-4: 42893 01/25/2017 ([id number]) 15740 EST. PATIENT, LEVEL IV Diagnosis: Essential (primary) hypertension[ICD10: I10] Diagnosis: Major depressive disorder, recurrent, mild[ICD10: F33.0] Diagnosis: Urge incontinence[ICD10: N39.41] [facility] MD, [facility] CPT-4: 78528 10/26/2016 ([id number]) 48610 EST. PATIENT, LEVEL III Diagnosis: Essential (primary) hypertension[ICD10: I10] Diagnosis: Major depressive disorder, recurrent, mild[ICD10: F33.0] Diagnosis: Urge incontinence[ICD10: N39.41] [facility], [facility] CPT-4: 07844 09/27/2016 [id number]) [id number] EST. PATIENT, LEVEL IV Diagnosis: Essential (primary) hypertension[ICD10: I10] Diagnosis: Encounter for immunization[ICD10: Z23] Diagnosis: Laceration without foreign body of left forearm, initial encounter[ ICD10: S51.812A] Diagnosis: Laceration without foreign body of right forearm, initial encounter[ ICD10: S51.811A] Diagnosis: Major depressive disorder, recurrent, mild[ICD10: F33.0] [facility], [facility] CPT-4: 83455 06/28/2016 ([id number]) 16507 EST. PATIENT, LEVEL IV Diagnosis: Essential (primary) hypertension[ICD10: I10] Diagnosis: Idiopathic gout, left ankle and foot[ICD10: M10.072] Diagnosis: Other iron deficiency anemias[ICD10: D50.8] [facility] MD, [facility] CPT-4: 89236 04/27/2016 ([id number]) 59861 EST. PATIENT, LEVEL V Diagnosis: Essential (primary) hypertension[ICD10: I10] Diagnosis: Major depressive disorder, recurrent, mild[ICD10: F33.0] Diagnosis: Idiopathic gout, left ankle and foot[ICD10: M10.072] Diagnosis: Mixed hyperlipidemia[ICD10: E78.2] [facility], [facility] CPT-4: 88450 02/17/2016 ([id number]) 87006 EST. PATIENT, LEVEL IV Diagnosis: Idiopathic gout, left ankle and foot[ICD10: M10.072] Diagnosis: Major depressive disorder, single episode, unspecified[ICD10: F32.9] Diagnosis: Localized edema[ICD10: R60.0] Merlien Butcher MD, [facility] CPT-4: 77363 01/20/2016 13229 EST. PATIENT, LEVEL IV Diagnosis: Idiopathic gout, left ankle and foot[ICD10: M10.072] Diagnosis: Essential (primary) hypertension[ICD10: I10] Diagnosis: Major depressive disorder, single episode, unspecified[ICD10: F32.9] Lesley Butcher MD, [facility] CPT-4: 19360 01/06/2016 15310 EST. PATIENT, LEVEL IV Diagnosis: Weakness[ICD10: R53.1] Diagnosis: Gout, unspecified[ICD10: M10.9] Diagnosis: Hypotension, unspecified[ICD10: I95.9] Lesley Butcher MD, [facility] CPT-4: 14740 12/16/2015 ([id number]) Patient admitted to the hospital from clinic (NO CHARGE) Diagnosis: Hypoxemia[ICD10: R09.02] Diagnosis: Weakness[ICD10: R53.1] Diagnosis: Dyspnea, unspecified[ICD10: R06.00] Mady Butcher MD, [facility] CPT-4: 20909V 11/27/2015 ([id number]) 82187 EST. PATIENT, LEVEL III Diagnosis: Essential (primary) hypertension[ICD10: I10] Diagnosis: Gastro-esophageal reflux disease without esophagitis[ICD10: K21.9] Lesley Butcher MD, [facility] CPT-4: 50075 07/30/2015 ([id number]) [id number] EST. PATIENT, LEVEL III Diagnosis: ESSENTIAL HYPERTENSION[ICD9: 401.9] Merline Butcher MD, [facility] CPT-4: 63846 06/09/2015 ([id number]) [id number] EST. PATIENT, LEVEL III Diagnosis: ESSENTIAL HYPERTENSION[ICD9: 401.9] Lesley Butcher MD, [facility] CPT-4: 55499 04/29/2015 ([id number]) OFFICE/OUTPATIENT VISIT NEW Diagnosis: ESSENTIAL HYPERTENSION[ICD9: 401.9] Diagnosis: DEPRESSIVE DISORDER NEC[ICD9: 311] Diagnosis: Enlarged prostate[ICD9: 600.00] Diagnosis: Nasal inflammation due to allergen[ICD9: 477.9] Lesley Butcher MD, [facility] CPT-4: 85438 02/19/2015 Plan of Care Planned Activity Notes Codes Status Date Visit Plan: Hypertension - well controlled - continue with current medications, continue with no added salt diet. Pt has been encouraged to exercise daily. The pt has been advised to call the office if there are any acute concerns about change in blood pressure readings at home. 10/27/2017 Appointment: Lesley Butcher WPtel: [address] [place], [place] [id number] (15 min) Moderate 10/27/2017 Patient Education: Patient Medication Summary Completed 10/27/2017 Referral: External, Ordering Provider Referral Initiated 10/12/2017 Visit Plan: BPH - continue with dutasteride and flomax Dysphagia - referral to Dr. Kumar for EGD - question stricture - dysphagia intermittently - hx of stricture. 09/29/2017 Appointment: Lesley Butcher WPtel: [address] [place], [place] [id number] (15 min) Moderate 09/29/2017 Patient Education: Patient Medication Summary Completed 09/29/2017 Care Plan: Referral Order SNOMED-CT : 518792455 Pending 09/29/2017 Visit Plan: Hypertension - well [...] recommended patient to have an evaluation at [facility] to see if he has potential for cochlear implant. 09/01/2017 [facility]ment[facility] [phone] [phone] (15 min) Moderate 09/01/2017 Patient Education: Patient Medication Summary Completed 09/01/2017 Care Plan: Referral Order SNOMED-CT : [id number] Pending 09/01/2017 Visit Plan: Medicare Exam - [...] care surrogate. 08/03/2017 [facility] [phone] [phone] [facility] - Welcome to Medicare visit [...] medications. 04/26/2017 Appointment: Lesley Butcher WPtel: [phone] [facility] (15 min) Moderate 04/26/2017 Patient Education: Patient [...] of oxybutynin to 10mg daily. 01/25/2017 Appointment: eLsley Butcher [facility]el[facility] [phone] [facility] (30 min) Complex 01/25/2017 Patient Education: Patient [...] [place] 10/26/2016 Appointment: Lesley Butcher WPtel: [address] [place], [place] [email or web address] (15 min) Moderate 10/26/2016 Patient Education: Patient [...] occur. 09/27/2016 Appointment: Lesley Butcher WPtel: [phone] [facility] (15 min) Moderate 09/27/2016 Patient Education: [...] Appointment: Lesley Butcher WPtel: [facility] (15 min) Moderate 06/28/2016 Patient Education: Patient [...] 1 month 02/17/2016 Appointment: [facility] [phone] [phone] (30 min) Complex 02/17/2016 Patient Education: [...] Completed 12/16/2015 [facility]: [facility] [phone] [phone] (15 min) Moderate 12/04/2015 Appointment: [facility]el[facility] [phone] [facility] [place] (15 min) Moderate 12/02/2015 Visit Plan: [...] PHARMACY 07/30/2015 Appointment: [facility] [phone] [facility] [place] (15 min) Moderate 07/30/2015 Patient Education: [...] home. 04/29/2015 Appointment: [facility] But[facility]el[facility] [phone] [facility] (15 min) Moderate 04/29/2015 Patient Education: Patient [...] External, Ordering Provider Referral Appointment Requested Referral: [facility] Referral info faxed Appointment Requested Referral: [facility] Referral Appointment Requested Instructions Comment add vitamin b12 dissolving tablets - 2000mcg [...] spray in the nasal steroid allergy spray. CHECK FASTING LABS DEXAMETHASONE 0.5MG-TAKE A FULL [...] increase dose of oxybutynin to 10mg daily. Do physical therapy once the gout gets [...] recommended patient to have an evaluation at [facility] to see if he has [...] deficiency anemia - continue with oral iron. CHECK FASTING LABS DEXAMETHASONE 0.5MG-TAKE A FULL [...]
--- OUTSIDE RECORDS SUMMARY | 2018-12-19 13:06 | XMS REPORT | Continuity of Care Document ---
Author Author [facility] Organization [facility] & Address Unknown Phone Unavailable Allergies Active Description Code Type Severity Reaction Onset Reported/Identified Relationship to Patient Clinical Status Yes NO KNOWN DRUG ALLERGIES UNKNOWN NO KNOWN DRUG ALLERG Yes NKANo Known Allergies NKA Miscellaneous Allergy Unknown N/A 12/17/2006 Yes No Known Drug Allergy Drug Allergy Unknown N/A 11/13/2015 Yes No Known Drug Category Allergy Drug Allergy Unknown N/A 11/13/2015 Yes No Known Environment Allergy Environmental Allergy Unknown N/A 11/13/2015 Yes No Known Food Allergy Food Allergy Unknown N/A 11/13/2015 Yes No Known Allergies No Known Allergies Drug Allergy Unknown N/A 2015 Yes iodine iodine Drug Allergy Unknown UNKNOWN 12/29/2016 Yes iodine iodine Drug Allergy Unknown UNKNOWN 12/29/2016 Yes NO KNOWN DRUG ALLERGIES [id number] Drug Allergy N/A N/A 02/08/2017 Yes iodine iodine Drug Allergy Moderate ITCHING 02/03/2018 Yes iodine iodine Drug Allergy Moderate ITCHING 02/03/2018 Medications Medication Packaging Start Date Stop Date Route Dosage Sig Aspir-81 81 mg tablet,delayed release 11/13/2015 81 mg take 1 (one) by Oral route daily chondroitin sulfate A sodium (bulk) 88 % powder 11/13/2015 88 % 1 (one) daily CoQ-10 100 mg capsule Capsule 11/13 100 mg take 2 (two) Capsule by Oral route daily nitroglycerin 0.4 mg sublingual tablet 11/13/2015 0.4 mg take 1 (one) by Sublingual route daily as needed Plavix 75 mg tablet Tablet 2015 75 mg take 1 ( one) Tablet by Oral route EVERY OTHER DAY Krill Oil (Cameron 3 & 6) 1,500 mg-165 mg-67.5 mg capsule 11/13/2015 07/14/2016 1,500-165-67.5 mg take 1 (one) Capsule by Oral route daily glucosamine HCl 1,500 mg tablet 11/13/2015 07/14/2016 1,500 mg take 1 (one) Tablet by Oral route daily Flomax 0.4 mg capsule 11/13/2015 0.4 mg take 1 (one ) by Oral route daily multivitamin tablet 11/13/2015 1 (one) by Oral route daily Vitamin D3 2,000 unit capsule 2,000 unit 1 (one) by Oral route daily spironolactone 25 mg tablet 11/13 25 mg take 1 ( one) Tablet by Oral route daily NexIUM 20 mg capsule,delayed release 11/13/2015 07/14/2016 20 mg take 1 (one) by Oral route daily citalopram 20 mg tablet 201507/14/2016 20 mg take 1 (one) Tablet by Oral route daily clonazePAM 1 mg tablet 2015 1 mg take 1 ( one) Tablet by Oral route daily dexamethasone 0.5 mg tablet 11/13 0.5 mg take 1 (one) Tablet by Oral route daily losartan 25 mg tablet 11/13/2015 07/14/2016 25 mg take 1 (one) Tablet by Oral route daily amLODIPine 5 mg tablet 201507/14/2016 5 mg take 1 (one) Tablet by Oral route daily apple cider vinegar 300 mg tablet 07/14/2016 300 mg take 1 (one) Tablet by Oral route daily Aleve 220 mg capsule Capsule 2015 220 mg take 2 ( two) Capsule by Oral route daily as needed Iron 21/7 150 mg iron (21)-400 mcg (7) tablet 07/14/2016 150 mg iron(21) - 400 mcg (7) 1 (one) by Oral route daily Vitamin B-6 100 mg tablet 2015 100 mg take 1 ( one) Tablet by Oral route daily allopurinol 100 mg tablet 2015 100 mg take 1 ( one) Tablet by Oral route daily pantoprazole 40 mg tablet,delayed release 07/14/2016 40 mg take 1 (one) by Oral route daily LACTATED RINGERS 1000CC IV BAG INJ ml 04/30/2018 04/30/2018 ONCE&1949 Problems Date Dx Coded Attending Type Code Diagnosis Diagnosed By 09/13/2014 AMELIE SANDERSON MD Ot 401.9 09/13/2014 AMELIE SANDERSON MD Ot 414.01 09/13/2014 MARIA E ORDONEZ, AMELIE Adler Ot 441.4 09/13/2014 MARIA E ORDONEZ, AMELIE Adler Ot 786.50 09/13/2014 MARIA E ORDONEZ, AMELIE Adler Ot 789.06 09/13/2014 MARIA E ORDONEZ, AMELIE Adler Ot V45.82 12/11/2014 FRANCISCO ORDONEZ, DOUG M Ot 729.5 12/11/2014 FRANCISCO ORDONEZ, DOUG M Ot 793.7 12/11/2014 FRANCISCO ORDONEZ, DOUG M Ot 729.5 12/11/2014 FRANCISCO ORDONEZ, DOUG M Ot 793.7 01/09/2015 Ot 593.2 01/09/2015 Ot 599.72 05/27/2015 FRANCISCO ORDONEZ, DOUG M Ot 729.5 05/27/2015 FRANCISCO ORDONEZ, DOUG M Ot 793.7 05/27/2015 Ot 593.2 05/27/2015 Ot 599.72 06/09/2015 FRANCISCO ORDONEZ, DOUG M Ot 729.5 06/09/2015 FRANCISCO ORDONEZ, DOUG M Ot 793.7 06/09/2015 Ot 593.2 06/09/2015 Ot 599.72 06/09/2015 MADISON CARL DOUGH MIXER HELPER Ot 715.36 06/09/2015 MADISON CARL DOUGH MIXER HELPER Ot 717.3 06/09/2015 MADISON CARL DOUGH MIXER HELPER Ot 717.40 06/09/2015 MADISON CARL DOUGH MIXER HELPER Ot 726.60 06/09/2015 MADISON CARL DOUGH MIXER HELPER Ot 727.43 06/11/2015 FRANCISCO ORDONEZ, DOUG M Ot 729.5 06/11/2015 FRANCISCO ORDONEZ, DOUG Payan Ot 793.7 06/11/2015 Ot 593.2 06/11/2015 Ot 599.72 06/11/2015 MADISON CARL DOUGH MIXER HELPER Ot 715.36 06/11/2015 MADISON CARLP Ot 717.3 06/11/2015 MADISON CARL DOUGH MIXER HELPER Ot 717.40 06/11/2015 MADISON CARL DOUGH MIXER HELPER Ot 726.60 06/11/2015 MADISON CARL DOUGH MIXER HELPER Ot 727.43 06/11/2015 XOCHITL ORDONEZ, EMILEE P [...] XOCHITL ORDONEZ, EMILEE P Ot V57.1 06/17/2015 MADISON CARL DOUGH MIXER HELPER Ot 715.36 06/17/2015 MADISON CARL DOUGH MIXER HELPER Ot 717.3 06/17/2015 MADISON CARL DOUGH MIXER HELPER Ot 717.40 06/17/2015 MADISON CARL DOUGH MIXER HELPER Ot 726.60 06/17/2015 MADISON CARL DOUGH MIXER HELPER Ot 727.43 06/26/2015 MADISON CARL DOUGH MIXER HELPER Ot 715.36 06/26/2015 MADISON CARL DOUGH MIXER HELPER Ot 717.3 06/26/2015 MADISON CARL DOUGH MIXER HELPER Ot 717.40 06/26/2015 MADISON CARL DOUGH MIXER HELPER Ot 726.60 06/26/2015 MADISON CARL DOUGH MIXER HELPER Ot 727.43 11/27/2015 FRANCISCO ORDONEZ, DOUG Payan Ot 729.5 11/27/2015 DOUG SINGH MD Ot 793.7 11/27/2015 Ot 593.2 11/27/2015 Ot 599.72 11/27/2015 MADISON CARL DOUGH MIXER HELPER Ot 715.36 11/27/2015 MADISON CARL DOUGH MIXER HELPER Ot 717.3 11/27/2015 MADISON CARL DOUGH MIXER HELPER Ot 717.40 11/27/2015 MADISON CARL DOUGH MIXER HELPER Ot 726.60 11/27/2015 MADISON CARL DOUGH MIXER HELPER Ot 727.43 11/27/2015 XOCHITL ORDONEZ, EMILEE P [...] MD Ot R09.02 HYPOXEMIA 11/29/2015 DAPHNE BHATT MD Ot T82.7XXA INFECT/INFLM REACT D/T OTH CARDI/VASC DE 11/29/2015 DAPHNE BHATT MD Ot Z87.891 PERSONAL HISTORY OF NICOTINE DEPENDENCE 11/29/2015 DAPHNE BHATT MD Ot Z95.5 PRESENCE OF CORONARY ANGIOPLASTY IMPLANT 11/29/2015 DAPHNE BHATT MD Ot Z95.828 PRESENCE OF OTHER VASCULAR IMPLANTS AND 11/29/2015 DAPHNE BHATT MD Ot Z98.89 OTHER SPECIFIED POSTPROCEDURAL STATES 04/08/2016 LORENA MATA MD I Ot N28.1 CYST OF KIDNEY, ACQUIRED 04/08/2016 LORENA MATA MD I Ot N28.1 CYST OF KIDNEY, ACQUIRED 05/04/2016 LORENA MATA MD I Ot N28.1 CYST OF KIDNEY, ACQUIRED 05/18/2016 LORENA MATA MD I Ot N28.1 CYST OF KIDNEY, ACQUIRED 06/17/2016 ESPERANZA ORDONEZ, LORENA I Ot N28.1 CYST OF KIDNEY, ACQUIRED 08/20/2016 Nancie ORDONEZ, Jesus Suarez E66.9 Obesity, unspecified Shun White 08/20/2016 Nancie ORDONEZ, Jesus Suarez I10 Essential (primary) hypertension Shun White 08/20/2016 Nancie ORDONEZ, Jesus Suarez I71.4 Abdominal aortic aneurysm, without rupture Shun White 01/04/2017 GARCIA KRAFT JOURNEYMAN CARPENTER Ot I10 ESSENTIAL (PRIMARY) HYPERTENSION 01/05/2017 GARCIA KRAFT JOURNEYMAN CARPENTER Ot I10 ESSENTIAL (PRIMARY) HYPERTENSION 01/05/2017 GARCIA KRAFT JOURNEYMAN CARPENTER Ot 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, 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 01/05/2017 GARCIA KRAFT JOURNEYMAN CARPENTER Ot I73.9 PERIPHERAL VASCULAR DISEASE, UNSPECIFIED 01/05/2017 GARCIA KRAFT JOURNEYMAN CARPENTER Ot I10 ESSENTIAL (PRIMARY) HYPERTENSION 01/05/2017 GARCIA KRAFT JOURNEYMAN CARPENTER Ot 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, 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 01/05/2017 GARCIA KRAFT APRN Ot I73.9 PERIPHERAL VASCULAR DISEASE, UNSPECIFIED 01/07/2017 ESPERANZA ORDONEZ, LORENA I Ot N28.1 CYST OF KIDNEY, ACQUIRED 01/07/2017 MILES HOLLAND-C Ot 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, 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 01/10/2017 GARCIA KRAFT JOURNEYMAN CARPENTER Ot I10 ESSENTIAL (PRIMARY) HYPERTENSION 01/10/2017 GARCIA KRAFT APRN Ot 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, 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 01/10/2017 GARCIA KRAFT JOURNEYMAN CARPENTER Ot I73.9 PERIPHERAL VASCULAR DISEASE, UNSPECIFIED 01/10/2017 MILES HOLLAND-C Ot 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, 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 01/26/2017 GARCIA KRAFT JOURNEYMAN CARPENTER Ot I10 ESSENTIAL (PRIMARY) HYPERTENSION 01/26/2017 GARCIA KRAFT JOURNEYMAN CARPENTER Ot 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, 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 01/26/2017 GARCIA KRAFT APRN Ot I73.9 PERIPHERAL VASCULAR DISEASE, UNSPECIFIED 01/28/2017 MILES HOLLAND-C Ot 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, 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 02/04/2017 SKYLER MILES Pereira BEAR-C Ot 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, 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 02/08/2017 ROBERT ORDONEZ, CORINNE Petersen Other T82.898A OTH COMPLICATION OF VASCULAR PROSTH DEV/GRFT, INIT 02/08/2017 ROBERT ORDONEZ, CORINNE Petersen Other Z01.812 ENCOUNTER FOR PREPROCEDURAL LABORATORY EXAMINATION 03/21/2017 ESPERANZA ORDONEZ, LORENA Angelo Ot N28.1 CYST OF KIDNEY, ACQUIRED 03/21/2017 MILES HOLLAND Randall PA-C Ot 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, 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 03/22/2017 KOURTNEY NANCE Ot Z01.812 ENCOUNTER FOR PREPROCEDURAL LABORATORY E 03/23/2017 MILES HOLLAND-C Ot 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, 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 03/23/2017 MILES HOLLAND-C Ot K57.30 DVRTCLOS OF LG INT W/O PERFORATION OR AB 03/23/2017 MILES HOLLAND Randall BEAR-C Ot K76.0 FATTY (CHANGE OF) LIVER, NOT ELSEWHERE C 04/12/2017 KOURTNEY NANCE Ot Z01.812 ENCOUNTER FOR PREPROCEDURAL LABORATORY E 04/20/2017 MILES HOLLAND-C Ot 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, 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 04/20/2017 MILES HOLLAND Randall PA-C Ot K57.30 DVRTCLOS OF LG INT W/O PERFORATION OR AB 04/20/2017 MILES HOLLAND-C Ot K76.0 FATTY (CHANGE OF) LIVER, NOT ELSEWHERE C 04/25/2017 MILES HOLLAND Randall BEAR-C Ot 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, 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 04/25/2017 MILES HOLLAND PA-C Ot K57.30 DVRTCLOS OF LG INT W/O PERFORATION OR AB 04/25/2017 MILES HOLLAND-C Ot K76.0 FATTY (CHANGE OF) LIVER, NOT ELSEWHERE C 10/21/2017 WALI SALAZAR DO Ot R13.10 DYSPHAGIA, UNSPECIFIED 10/21/2017 WALI SALAZAR DO Ot Z01.818 ENCOUNTER FOR OTHER PREPROCEDURAL EXAMIN 10/25/2017 ABENA, GARCIA M JOURNEYMAN CARPENTER Ot I10 ESSENTIAL (PRIMARY) HYPERTENSION 10/25/2017 GARCIA KRAFT JOURNEYMAN CARPENTER Ot 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, 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 10/25/2017 GARCIA KRAFT JOURNEYMAN CARPENTER Ot I73.9 PERIPHERAL VASCULAR DISEASE, UNSPECIFIED 10/25/2017 SALAZAR DOPEDROTT D Ot E78.5 HYPERLIPIDEMIA, UNSPECIFIED 10/25/2017 MARTIN DOPEDROTT D Ot F32.9 MAJOR DEPRESSIVE DISORDER, SINGLE EPISOD 10/25/2017 SALAZAR DO, WALI D Ot F41.9 ANXIETY DISORDER, UNSPECIFIED 10/25/2017 SALAZAR DO, WALI D Ot G47.33 OBSTRUCTIVE SLEEP APNEA (ADULT) (PEDIATR 10/25/2017 MARTIN DO WALI D Ot I10 ESSENTIAL (PRIMARY) HYPERTENSION 10/25/2017 MARTIN GERBER WALI D Ot I25.10 ATHSCL HEART DISEASE OF [place] CORONARY 10/25/2017 MARTIN GERBER WALI D Ot K21.0 GASTRO-ESOPHAGEAL REFLUX DISEASE WITH ES 10/25/2017 PEDRO SALAZAR DOTT D Ot K44.9 DIAPHRAGMATIC HERNIA WITHOUT OBSTRUCTION 10/25/2017 MARTIN GERBER WALI D Ot Z79.2 FINANCIAL PLANNING ADVISER (CURRENT) USE OF ANTIBIOTICS 10/25/2017 PEDRO SALAZAR DOTT D Ot Z79.899 OTHER FINANCIAL PLANNING ADVISER (CURRENT) DRUG THERAPY 10/25/2017 PEDRO SALAZAR DOTT D Ot Z95.5 PRESENCE OF CORONARY ANGIOPLASTY IMPLANT 10/27/2017 PEDRO SALAZAR DOTT D Ot E78.5 HYPERLIPIDEMIA, UNSPECIFIED 10/27/2017 MARTIN GERBER WALI D Ot F32.9 MAJOR DEPRESSIVE DISORDER, SINGLE EPISOD 10/27/2017 MARTIN DO, WALI D Ot F41.9 ANXIETY DISORDER, UNSPECIFIED 10/27/2017 SALAZAR DO, WALI D Ot G47.33 OBSTRUCTIVE SLEEP APNEA (ADULT) (PEDIATR 10/27/2017 MARTIN DO WALI D Ot I10 ESSENTIAL (PRIMARY) HYPERTENSION 10/27/2017 MARTIN GERBER WALI D Ot I25.10 ATHSCL HEART DISEASE OF [place] CORONARY 10/27/2017 MARTIN DO WALI D Ot K21.0 GASTRO-ESOPHAGEAL REFLUX DISEASE WITH ES 10/27/2017 MARTIN DO WALI D Ot K44.9 DIAPHRAGMATIC HERNIA WITHOUT OBSTRUCTION 10/27/2017 SALAZAR DO WALI D Ot Z79.2 FINANCIAL PLANNING ADVISER (CURRENT) USE OF ANTIBIOTICS 10/27/2017 [facility] WALI D Ot Z79.899 OTHER FINANCIAL PLANNING ADVISER (CURRENT) DRUG THERAPY 10/27/2017 SALAZAR DO, WALI D Ot Z95.5 PRESENCE OF CORONARY ANGIOPLASTY IMPLANT 10/28/2017 SALAZAR DO, WALI D Ot E78.5 HYPERLIPIDEMIA, UNSPECIFIED 10/28/2017 SALAZAR DO, WALI D Ot F32.9 MAJOR DEPRESSIVE DISORDER, SINGLE EPISOD 10/28/2017 SALAZAR DO, WALI D Ot F41.9 ANXIETY DISORDER, UNSPECIFIED 10/28/2017 SALAZAR DO, WALI D Ot G47.33 OBSTRUCTIVE SLEEP APNEA (ADULT) (PEDIATR 10/28/2017 [facility] Ot I10 ESSENTIAL (PRIMARY) HYPERTENSION 10/28/2017 [facility] Ot I25.10 ATHSCL HEART DISEASE OF [place] CORONARY 10/28/2017 [facility] Ot K21.0 GASTRO-ESOPHAGEAL REFLUX DISEASE WITH ES 10/28/2017 [facility] Ot K44.9 DIAPHRAGMATIC HERNIA WITHOUT OBSTRUCTION 10/28/2017 [facility], WALI D Ot Z79.2 FINANCIAL PLANNING ADVISER (CURRENT) USE OF ANTIBIOTICS 10/28/2017 [facility] WALI D Ot Z79.899 OTHER FINANCIAL PLANNING ADVISER (CURRENT) DRUG THERAPY 10/28/2017 [facility] WALI D Ot Z95.5 PRESENCE OF CORONARY ANGIOPLASTY IMPLANT 11/14/2017 TIERRA DE MD Ot H91.93 UNSPECIFIED HEARING LOSS, BILATERAL 11/14/2017 TIERRA DE MD Ot R93.8 ABNORMAL FINDINGS ON DIAGNOSTIC IMAGING 11/15/2017 GARCIA KRAFT JOURNEYMAN CARPENTER Ot I10 ESSENTIAL (PRIMARY) HYPERTENSION 11/15/2017 GARCIA KRAFT JOURNEYMAN CARPENTER Ot 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, 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 11/15/2017 GARCIA KRAFT APRN Ot I73.9 PERIPHERAL VASCULAR DISEASE, UNSPECIFIED 11/15/2017 TIERRA DE MD Ot H91.93 UNSPECIFIED HEARING LOSS, BILATERAL 11/15/2017 TIERRA DE MD Ot R93.8 ABNORMAL FINDINGS ON DIAGNOSTIC IMAGING 11/17/2017 TIERRA DE MD, Ot H91.93 UNSPECIFIED HEARING LOSS, BILATERAL 11/17/2017 TIERRA DE MD Ot 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, NONRUPTURED 11/17/2017 NOVA ORDONEZ, DAPHNE A Ot I10 ESSENTIAL (PRIMARY) HYPERTENSION 11/22/2017 KENISHA ORDONEZ, TIERRA Ot H91.93 UNSPECIFIED HEARING LOSS, BILATERAL 11/22/2017 KENSIHA ORDONEZ, TIERRA Ot 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, NONRUPTURED 12/02/2017 KENISHA ORDONEZ, TIERRA Ot H91.93 UNSPECIFIED HEARING LOSS, BILATERAL 12/02/2017 KENISHA ORDONEZ, TIERRA Ot R93.8 ABNORMAL FINDINGS ON DIAGNOSTIC IMAGING 12/07/2017 KENISHA ORDONEZ, TIERRA Ot H91.93 UNSPECIFIED HEARING LOSS, BILATERAL 12/07/2017 KENISHA ORDONEZ, TIERRA Ot R93.8 ABNORMAL FINDINGS ON DIAGNOSTIC IMAGING 12/08/2017 KENISHA ORDONEZ, TIERRA Ot H91.93 UNSPECIFIED HEARING LOSS, BILATERAL 12/08/2017 KENISHA ORDONEZ, TIERRA Ot 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, NONRUPTURED 12/08/2017 NOVA ORDONEZ, DAPHNE A Ot I10 ESSENTIAL (PRIMARY) HYPERTENSION 04/30/2018 Chase Nickerson 285.1 ACUTE POSTHEMORRHAGIC ANEMIA 04/30/2018 Chase Nickerson 578.1 BLOOD IN STOOL 04/30/2018 Chase Nickerson 578.9 HEMORRHAGE OF GASTROINTESTINAL TRACT, UNSPECIFIED 04/30/2018 Chase Nickerson 780.79 OTHER MALAISE AND FATIGUE 04/30/2018 Chase Nickerson D62 ACUTE POSTHEMORRHAGIC ANEMIA 04/30/2018 Chase Nickerson K92.1 MELENA 04/30/2018 Chase Nickerson K92.2 GASTROINTESTINAL HEMORRHAGE, UNSPECIFIED 04/30/2018 Chase Nickerson R53.83 OTHER FATIGUE 04/30/2018 Kirit Shahid MD D12.3 BENIGN NEOPLASM OF TRANSVERSE COLON 04/30/2018 Kirit Shahid MD D62 ACUTE POSTHEMORRHAGIC ANEMIA 04/30/2018 Kirit Shahid MD F32.9 MAJOR DEPRESSIVE DISORDER, SINGLE EPISODE, UNSPECI 04/30/2018 Kirit Shahid MD G25.81 RESTLESS LEGS SYNDROME 04/30/2018 Kirit Shahid MD G47.33 OBSTRUCTIVE SLEEP APNEA (ADULT) (PEDIATRIC) 04/30/2018 Kirit Shahid MD 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, LEFT EAR 04/30/2018 Kirit Shahid MD I25.10 ATHSCL HEART DISEASE OF [place] CORONARY ARTERY W/O 04/30/2018 Kirit Shahid MD I73.9 PERIPHERAL VASCULAR DISEASE, UNSPECIFIED 04/30/2018 Kirit Shahid MD 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 04/30/2018 Kirit Shahid MD I95.9 HYPOTENSION, UNSPECIFIED 04/30/2018 Kirit Shahid MD K21.9 GASTRO-ESOPHAGEAL REFLUX DISEASE WITHOUT ESOPHAGIT 04/30/2018 Kirit Shahid MD 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 04/30/2018 Kirit Shahid MD K64.8 OTHER HEMORRHOIDS 04/30/2018 Kirit Shahid MD K92.2 GASTROINTESTINAL HEMORRHAGE, UNSPECIFIED 04/30/2018 Kirit Shahid MD M10.9 GOUT, UNSPECIFIED 04/30/2018 Kirit Shahid MD N17.9 ACUTE KIDNEY FAILURE, UNSPECIFIED 04/30/2018 Kirit Shahid MD T82.330A LEAKAGE OF AORTIC (BIFURCATION) GRAFT (REPLACEMENT 04/30/2018 Kirit Shahid MD Z79.02 FINANCIAL PLANNING ADVISER (CURRENT) USE OF ANTITHROMBOTICS/ANTIPLA 04/30/2018 Kirit Shahid MD Z79.82 INTERMEDIATE (CURRENT) USE OF ASPIRIN 04/30/2018 Kirit Shahid MD Z90.49 ACQUIRED ABSENCE OF OTHER SPECIFIED PARTS OF DIGES 04/30/2018 Kirit Shahid MD Z91.041 RADIOGRAPHIC DYE ALLERGY STATUS 04/30/2018 Kirit Shahid MD Z95.5 PRESENCE OF CORONARY ANGIOPLASTY IMPLANT AND GRAFT 04/30/2018 Kirit Shahid MD Z96.21 COCHLEAR IMPLANT STATUS 08/01/2018 ESPERANZALORENA HOLMAN I I10 Essential (primary) hypertension LORENA MATA I 10/24/2018 DAPHNE BHATT MD Ot H91.10 PRESBYCUSIS, UNSPECIFIED EAR 10/24/2018 DAPHNE BHATT MD Ot I10 ESSENTIAL (PRIMARY) HYPERTENSION 10/24/2018 DAPHNE BHATT MD Ot I25.10 ATHSCL HEART DISEASE OF [place] CORONARY 10/26/2018 DAPHNE BHATT MD Ot H91.10 PRESBYCUSIS, UNSPECIFIED EAR 10/26/2018 NOVA ORDONEZ, DAPHNE A Ot I10 ESSENTIAL (PRIMARY) HYPERTENSION 10/26/2018 NOVA ORDONEZ, DAPHNE A Ot I25.10 ATHSCL HEART DISEASE OF [place] CORONARY 11/10/2018 NOVA ORDONEZ, DAPHNE A Ot H91.10 PRESBYCUSIS, UNSPECIFIED EAR 11/10/2018 NOVA ORDONEZ, DAPHNE A Ot I10 ESSENTIAL (PRIMARY) HYPERTENSION 11/10/2018 NOVA ORDONEZ, DAPHNE A Ot I25.10 ATHSCL HEART DISEASE OF [place] CORONARY 11/15/2018 NOVA ORDONEZ, DAPHNE A Ot H91.10 PRESBYCUSIS, UNSPECIFIED EAR 11/15/2018 NOVA ORDONEZ, DAPHNE A Ot I10 ESSENTIAL (PRIMARY) HYPERTENSION 11/15/2018 NOVA ORDONEZ, DAPHNE A Ot I25.10 ATHSCL HEART DISEASE OF [place] CORONARY 11/28/2018 KOURTNEY NANCE DOUGH MIXER HELPER Ot I25.10 ATHSCL HEART DISEASE OF [place] CORONARY 11/28/2018 KOURTNEY NANCE DOUGH MIXER HELPER Ot R06.02 SHORTNESS OF BREATH 11/28/2018 KOURTNEY NANCE DOUGH MIXER HELPER Ot R42 DIZZINESS AND GIDDINESS 12/19/2018 KOURTNEY NANCE DOUGH MIXER HELPER Ot I25.10 ATHSCL HEART DISEASE OF [place] CORONARY 12/19/2018 KOURTNEY NANCE DOUGH MIXER HELPER Ot R06.02 SHORTNESS OF BREATH 12/19/2018 KOURTNEY NANCE DOUGH MIXER HELPER Ot R42 DIZZINESS AND GIDDINESS Procedures Code Description [place] [address] Office or other outpatient visit for the evaluation and management of an established patient, which Shun White 08/19/2016 [id number] Office or other outpatient visit for the evaluation and management of an established patient, which Shun White 09/20/2016 [id number] ULTRASOUND RETROPERITONEAL LIMITED TORRIE KEYS 02/23/2017 [id number] INSPECTION OF UPPER INTESTINAL TRACT, Memo Arevalo MD [id number] INSPECTION OF LOWER INTESTINAL TRACT, ALIREZA Root MD, Memo Suarez [id number] ASSISTANCE WITH RESPIRATORY VENTILATION, 24-96 HRS Kirit Shahid MD 04/30/2018 [id number] Office or other outpatient visit for the evaluation and management of an established patient, which ESPERANZAELLIE ArriolaDaniela Angelo 08/01/2018 [id number] Office or other outpatient visit for the evaluation and management of an established patient, which ESPERANZA LORENA Angelo 08/24/2018 <section xmlns="urn:hl7-org:v3" xmlns:xsi="http:// www.3.org/2001/XMLSchema-instance"> <templateId root= "[id number]" /> <templateId root= "[id number]" /> <code codeSystemName="LOINC" codeSystem= "[id number]" code="35088-9" displayName="Results" /> <title>Results< /title> <text> <table> <thead> [...] <td>CARBON DIOXIDE</td> <td>22 mmol/L</td> <td>21-32</td> </tr> <tr> <th colspan="10"> HEMOGLOBIN - 11/17/15 18:26</th> </tr> <tr> <td>MEAN CELL VOLUME</td> <td>86.8 fl</td> <td>80.0-100.0</td> < /tr> <tr> <td>HEMOGLOBIN</td> <td>12.4 gm/dL</td> <td>14.0-18.0</td> </tr> <tr> <th colspan="10"> HEMATOCRIT - 11/17/15 18:26</th> </tr> <tr> <td>MEAN CELL VOLUME</td> <td>87.0 fl</td> <td>80.0-100.0</td> < /tr> <tr> <td>HEMATOCRIT</td> <td>36.2 %</td> <td>40.0-54.0</td> </tr> <tr> <th colspan="10"> URINALYSIS, NO REFLEX CULTURE - 11/17/15 [...] COUNT</td> <td>176 k/cumm</td> <td>150-450</td > </tr> <tr> <th colspan="10">ARTERIAL BLOOD GAS - 15:44</th> </tr> <tr> [...] WESTERGREN</td> <td> 86 mm/hr</td> <td>0-20</td> </tr> <tr> <th colspan="10">VENOUS BLOOD GAS - 11/30/15 04:41</th> </tr> [...] DIOXIDE</td> <td>21 mmol/L</td> <td>21-32</td> < /tr> <tr> <th colspan="10">PHOSPHORUS - 12/01/15 04:39</th> </tr> <tr> <td>PHOSPHORUS</td> <td>3.1 mg/dL</td> <td>2.5-4.9</td> </tr> <tr> <th colspan="10"> MAGNESIUM - 12/01/15 04:39</th> </tr> <tr> <td>MAGNESIUM< /td> <td>1.8 mg/dL</td> <td>1.8-2.4</td> </tr> < tr> <th colspan="10">FERRITIN - 12/01/15 04:39</th> </tr> <tr> <td>FERRITIN</td> <td>175 ng/mL</td> <td>26- 388</td> </tr> <tr> < colspan="10">IRON W/ BINDING CAPACITY - 12/01/15 04:39</th> [...] DIOXIDE</td> <td>25 mmol/L</td> <td>21-32</td> </tr> <tr> <th colspan="10">Creatinine, Serum - 06/03/16 03:45</th> </tr> <tr> <td>Creatinine, Serum</td> <td>1.3 </td> <td>0.6-1.4</ td> </tr> <tr> <th colspan="10">GFR, Estimated - 03:45</th> </tr> <tr> <td>eGFR</td> <td>59 ML /MIN</td> <td>NRG</td> </tr> <tr> <th colspan= "10">CBC With Platelet and Differential - 06/03/16 03:45</th> </tr> <tr> <td>Hematocrit (HCT)</td> <td>43.3 %</td> <td>42.0-52.0</td> </tr> <tr> <td>Hemoglobin (Hgb)</td > <td>14.5 G/DL</td> <td>14.0-18.0</td> </tr> < tr> <td>WBC</td> <td>5.81 K/UL</td> <td>4.8-10.8</td > </tr> <tr> <th colspan="10">Potassium (K), Serum - 03:45</th> </tr> <tr> <td>Potassium (K), Serum</td > <td>4.0 MEQ/L</td> <td>3.2-5.2</td> </tr> <tr > <th colspan="10">Vitamin D, 25-Hydroxy - 06/03/16 03:45</th> < /tr> <tr> <td>Vitamin D,25-Hydroxy</td> <td>65.52 NG/ML </td> <td>25-80</td> </tr> <tr> <th colspan="10 ">Uri Marion CA/CR ratio - 06/03/16 03:45</th> </tr> <tr> < td>Creatinine, Random U</td> <td>141.0 MG/DL</td> <td>NRG</td > </tr> <tr> <td>Protein,Total, Rdm U</td> <td> 15.0 MG/DL</td> <td>NRG</td> </tr> <tr> <td> Protein/Creat Ratio</td> <td>0.11 </td> <td>NRG</td> </ tr> <tr> <th colspan="10">CT ANGIOGR ABD W/O&amp;W - 03/01 09:12</th> </tr> <tr> <td>Misc. Result, see notes for description</td> <td>See Attached Document </td> <td>NRG</ td> </tr> <tr> <td>CT ANGIOGR ABD W/O&W</td> <td>See Attached Document </td> <td>NRG</td> </tr> <tr > <th colspan="10">Complete blood count (CBC) with automated white blood cell (WBC) differential - 01/04/17 09:40</th> </tr> <tr> <td>Blood leukocytes automated count (number/volume)</td> <td> 6.3 10*3/uL</td> <td>4.3-11.0</td> </tr> <tr> < td>Blood erythrocytes automated count (number/volume)</td> <td>4.70 10* 6/uL</td> <td>4.35-5.85</td> </tr> <tr> <td> Venous blood hemoglobin measurement (mass/volume)</td> <td>14.0 g/dL</ td> <td>13.3-17.7</td> </tr> <tr> <td>Blood hematocrit (volume fraction)</td> <td>41 %</td> <td>40-54< /td> </tr> <tr> <td>Automated erythrocyte mean corpuscular volume</td> <td>87 [foz_us]</td> <td>80-99</td> </tr> <tr> <td>Automated erythrocyte mean corpuscular hemoglobin (mass per erythrocyte)</td> <td>30 pg</td> <td>25- 34</td> </tr> <tr> <td>Automated erythrocyte mean corpuscular hemoglobin concentration measurement (mass/volume)</td> <td >34 g/dL</td> <td>32-36</td> </tr> <tr> <td> Automated erythrocyte distribution width ratio</td> <td>14.9 %</td > <td>10.0-14.5</td> </tr> <tr> <td>Automated blood platelet count (count/volume)</td> <td>201 10*3/uL</td> <td>130-400</td> </tr> <tr> <td>Automated blood platelet mean volume measurement</td> <td>10.1 [foz_us]</td> <td>7.4- 10.4</td> </tr> <tr> <td>Automated blood neutrophils/100 leukocytes</td> <td>61 %</td> <td>42-75</td> </tr> <tr> <td>Automated blood lymphocytes/100 leukocytes</td> <td>29 %</td> <td>12-44</td> </tr> <tr> <td>Blood monocytes/100 leukocytes</td> <td>7 %</td> <td>0 -12</td> </tr> <tr> <td>Automated blood eosinophils/100 leukocytes</td> <td>3 %</td> <td>0-10</td> </tr> <tr> <td>Automated blood basophils/100 leukocytes</td> < td>0 %</td> <td>0-10</td> </tr> <tr> <td> Blood neutrophils automated count (number/volume)</td> <td>3.8 10*3</td > <td>1.8-7.8</td> </tr> <tr> <td>Blood lymphocytes automated count (number/volume)</td> <td>1.8 10*3</td> <td>1.0-4.0</td> </tr> <tr> <td>Blood monocytes automated count (number/volume)</td> <td>0.5 10*3</td> <td>0.0 -1.0</td> </tr> <tr> <td>Automated eosinophil count</td> <td>0.2 10*3/uL</td> <td>0.0-0.3</td> </tr> <tr > <td>Automated blood basophil count (count/volume)</td> <td> 0.0 10*3/uL</td> <td>0.0-0.1</td> </tr> <tr> < th colspan="10">Comprehensive metabolic panel - 01/04/17 09:40</th> </tr > <tr> <td>Serum or plasma sodium measurement (moles/volume)</td > <td>140 mmol/L</td> <td>135-145</td> </tr> <tr > <td>Serum or plasma potassium measurement (moles/volume)</td> <td>3.9 mmol/L</td> <td>3.6-5.0</td> </tr> <tr> <td>Serum or plasma chloride measurement (moles/volume)</td> <td> 107 mmol/L</td> <td>98-107</td> </tr> <tr> <td> Carbon dioxide</td> <td>23 mmol/L</td> <td>21-32</td> < /tr> <tr> <td>Serum or plasma anion gap determination (moles/ volume)</td> <td>10 mmol/L</td> <td>5-14</td> </tr> <tr> <td>Serum or plasma urea nitrogen measurement (mass/volume)</ td> <td>18 mg/dL</td> <td>7-18</td> </tr> <tr> <td>Serum or plasma creatinine measurement (mass/volume)</td> <td>1.26 mg/dL</td> <td>0.60-1.30</td> </tr> <tr> <td>Serum or plasma urea nitrogen/creatinine mass ratio</td> <td>14 </td> <td>NRG</td> </tr> <tr> <td>Serum or plasma creatinine measurement with calculation of estimated glomerular filtration rate</td> <td>55 </td> <td>NRG</td> </tr> <tr> <td>Serum or plasma glucose measurement (mass/volume)</td> <td>100 mg/dL</td> <td>70-105</td> </tr> <tr> <td>Serum or plasma calcium measurement (mass/volume)</td> <td> 9.0 mg/dL</td> <td>8.5-10.1</td> </tr> <tr> <td> Serum or plasma total bilirubin measurement (mass/volume)</td> <td>0.8 mg/dL</td> <td>0.1-1.0</td> </tr> <tr> <td> Serum or plasma alkaline phosphatase measurement (enzymatic activity/volume)</td > <td>82 U/L</td> <td>40-136</td> </tr> <tr> <td>Serum or plasma aspartate aminotransferase measurement (enzymatic activity/volume)</td> <td>22 U/L</td> <td>5-34</td> </ tr> <tr> <td>Serum or plasma alanine aminotransferase measurement (enzymatic activity/volume)</td> <td>22 U/L</td> < td>0-55</td> </tr> <tr> <td>Serum or plasma protein measurement (mass/volume)</td> <td>6.9 g/dL</td> <td>6.4-8.2</ td> </tr> <tr> <td>Serum or plasma albumin measurement ( mass/volume)</td> <td>3.9 g/dL</td> <td>3.2-4.5</td> </ tr> <tr> <th colspan="10">THYROID STIMULATING HORMONE - 09:40</th> </tr> <tr> <td>THYROID STIMULATING HORMONE< /td> <td>1.80 u[iU]/mL</td> <td>0.35-4.94</td> </tr> <tr> <th colspan="10">Serum or plasma testosterone measurement ( mass/volume) - 01/04/17 09:40</th> </tr> <tr> <td> Testosterone [mass or moles/volume] in serum or plasma</td> <td>196 &# 37;</td> <td>241-827</td> </tr> <tr> <th colspan ="10">[id number] - 03/22/17 08:05</th> </tr> <tr> <td>Serum or plasma urea nitrogen measurement (mass/volume)</td> <td>18 mg/dL</td > <td>7-18</td> </tr> <tr> <td>Serum or plasma creatinine measurement (mass/volume)</td> <td>1.21 mg/dL</td> <td>0.60-1.30</td> </tr> <tr> <td>Serum or plasma urea nitrogen/creatinine mass ratio</td> <td>15 </td> <td>NRG</td> </tr> <tr> <td>Serum or plasma creatinine measurement with calculation of estimated glomerular filtration rate</td> <td>58 </ td> <td>NRG</td> </tr> <tr> < colspan="10"> [id number] - 11/16/17 10:09</th> </tr> <tr> <td>Serum or plasma urea nitrogen measurement (mass/volume)</td> <td>15 mg/dL</td> <td>7-18</td> </tr> <tr> <td>Serum or plasma creatinine measurement (mass/volume)</td> <td>1.23 mg/dL</td> <td>0.60-1.30</td> </tr> <tr> <td>Serum or plasma urea nitrogen/creatinine mass ratio</td> <td>12 </td> <td>NRG</td> </tr> <tr> <td>Serum or plasma creatinine measurement with calculation of estimated glomerular filtration rate</td> <td>57 </ td> <td>NRG</td> </tr> <tr> < colspan="10"> CBC W/DIFF - 02/03/18 10:50</th> </tr> <tr> <td>BASOPHIL #</td> <td>0.0 k/cumm</td> <td>0.0-0.2</td> </tr> <tr> <td>BASOPHIL %</td> <td>0.3 %</td> < td>0-1</td> </tr> <tr> <td>EOSINOPHIL #</td> <td >0.1 k/cumm</td> <td>0.1-0.5</td> </tr> <tr> <td >EOSINOPHIL %</td> <td>1.9 %</td> <td>2-4</td> </tr> <tr> <td>GRANULOCYTE #</td> <td>4.0 k/cumm</td> <td>2.0-9.0</td> </tr> <tr> <td>GRANULOCYTE &#37 ;</td> <td>59.1 %</td> <td>50-75</td> </tr> <tr> <td>LYMPHOCYTE #</td> <td>2.1 k/cumm</td> <td> 1.0-4.0</td> </tr> <tr> <td>LYMPHOCYTE %</td> <td>30.7 %</td> <td>20-30</td> </tr> <tr> <td>MEAN CELL HGB</td> <td>30.7 pg</td> <td>27.0-33.0</td> </tr> <tr> <td>MEAN CELL HGB CONCENTRATION</td> <td>34.6 g/dL</td> <td>32.0-37.0</td> </tr> <tr> <td>MEAN CELL VOLUME</td> <td>88.8 fl</td> <td>80.0-100.0</ td> </tr> <tr> <td>MONOCYTE #</td> <td>0.5 k/ cumm</td> <td>0.1-1.0</td> </tr> <tr> <td> MONOCYTE %</td> <td>7.3 %</td> <td>4-6</td> </ tr> <tr> <td>MEAN PLATELET VOLUME</td> <td>9.8 fl</td> <td>8.5-10.9</td> </tr> <tr> <td>RED BLOOD CELL </td> <td>4.56 m/cumm</td> <td>4.00-6.00</td> </tr> <tr> <td>RED CELL DISTRIBUTION WIDTH</td> <td>14.4 %< /td> <td>11.0-15.6</td> </tr> <tr> <td>WHITE BLOOD CELL</td> <td>6.7 k/cumm</td> <td>5.0-10.0</td> < /tr> <tr> <td>HEMOGLOBIN</td> <td>14.0 gm/dL</td> <td>14.0-18.0</td> </tr> <tr> <td>HEMATOCRIT</td> <td>40.5 %</td> <td>40.0-54.0</td> </tr> <tr > <td>PLATELET COUNT</td> <td>197 k/cumm</td> <td>150 -400</td> </tr> <tr> <td>IMMATURE GRANULOCYTE %</td> <td>0.7 %</td> <td>0.0-0.6</td> </tr> <tr> <td>NRBC %</td> <td>0.0 /100 WBC</td> <td>0.0- 0.0</td> </tr> <tr> <td>IMMATURE GRANULOCYTE #</td> <td>0.05 k/cumm</td> <td>0.00-0.09</td> </tr> <tr> <th colspan="10">PROTHROMBIN TIME WITH INR - 02/03/18 10:50</th> </tr> <tr> <td>INTERNATIONAL NORMAL RATIO</td> <td> 1.0 </td> <td>0.9-1.1</td> </tr> <tr> <td> PROTHROMBIN TIME</td> <td>11.6 sec</td> <td>10.0-12.8</td> </tr> <tr> < colspan="10">METABOLIC PANEL, BASIC - 10:50</th> </tr> <tr> <td>POTASSIUM</td> <td> 4.0 mmol/L</td> <td>3.5-5.3</td> </tr> <tr> <td> EST GFR (MDRD)</td> <td>53 mL/min</td> <td>> 59</td> </tr> <tr> <td>ANION GAP</td> <td>5 mmol/L</td> <td>5-15</td> </tr> <tr> <td>EST CrCl (CG)</td> <td>56 mL/min</td> <td>> 59</td> </tr> <tr> <td>GLUCOSE</td> <td>93 mg/dL</td> <td>70-99</td> </tr> <tr> <td>CALCIUM</td> <td>9.0 mg/dL</td> <td>8.5-10.1</td> </tr> <tr> <td>BLOOD UREA NITROGEN< /td> <td>19 mg/dL</td> <td>7-20</td> </tr> <tr> <td>CREATININE</td> <td>1.3 mg/dL</td> <td>0.7-1.3</ td> </tr> <tr> <td>SODIUM</td> <td>140 mmol/L</ td> <td>135-148</td> </tr> <tr> <td>CHLORIDE</td > <td>107 mmol/L</td> <td>98-110</td> </tr> <tr > <td>CARBON DIOXIDE</td> <td>28 mmol/L</td> <td>21- 32</td> </tr> <tr> <th colspan="10">LIPID PANEL - 10:50</th> </tr> <tr> <td>CHOLESTEROL/HDL RATIO</td> <td>3.7 </td> <td> < 5.0</td> </tr> <tr> <td>LDL CHOLESTEROL</td> <td>87 mg/dL</td> <td>< 100< /td> </tr> <tr> <td>VLDL CHOLESTEROL</td> <td> 16 mg/dL</td> <td>< 30</td> </tr> <tr> <td> TRIGLYCERIDES</td> <td>80 mg/dL</td> <td>< 150</td> </tr> <tr> <td>CHOLESTEROL</td> <td>141 mg/dL</td> <td>< 200</td> </tr> <tr> <td>HDL CHOLESTEROL</ td> <td>38 mg/dL</td> <td>> 39</td> </tr> <tr > <th colspan="10">METABOLIC PANEL, BASIC - 02/04/18 12:26</th> </tr> <tr> <td>POTASSIUM</td> <td>3.5 mmol/L</td> <td>3.5-5.3</td> </tr> <tr> <td>EST GFR (MDRD)</td> <td>53 mL/min</td> <td>> 59</td> </tr> <tr> <td>ANION GAP</td> <td>10 mmol/L</td> <td>5-15</td> </tr> <tr> <td>EST CrCl (CG)</td> <td>56 mL/min </td> <td>> 59</td> </tr> <tr> <td>GLUCOSE</ td> <td>96 mg/dL</td> <td>70-99</td> </tr> <tr> <td>CALCIUM</td> <td>9.1 mg/dL</td> <td>8.5-10.1</td > </tr> <tr> <td>BLOOD UREA NITROGEN</td> <td> 19 mg/dL</td> <td>7-20</td> </tr> <tr> <td> CREATININE</td> <td>1.3 mg/dL</td> <td>0.7-1.3</td> </ tr> <tr> <td>SODIUM</td> <td>143 mmol/L</td> < td>135-148</td> </tr> <tr> <td>CHLORIDE</td> <td >107 mmol/L</td> <td>98-110</td> </tr> <tr> <td> CARBON DIOXIDE</td> <td>26 mmol/L</td> <td>21-32</td> < /tr> <tr> < colspan="10">TYPE/SCREEN - 04/30/18 19:50</th> </tr> <tr> <td>ABO/RH</td> <td>O POSITIVE </td> <td /> </tr> <tr> <td>ANTIBODY SCREEN</td> <td> POSITIVE </td> <td /> </tr> <tr> < colspan="10">CBC W/DIFF - 05/01/18 00:10</th> </tr> <tr> <td>BASOPHIL #</td> <td>0.0 k/cumm</td> <td>0.0-0.2</td> </tr> <tr> <td>BASOPHIL %</td> <td>0.2 %</td > <td>0-1</td> </tr> <tr> <td>EOSINOPHIL #</td> <td>0.0 k/cumm</td> <td>0.1-0.5</td> </tr> <tr > <td>EOSINOPHIL %</td> <td>0.1 %</td> <td>2- 4</td> </tr> <tr> <td>GRANULOCYTE #</td> <td> 15.1 k/cumm</td> <td>2.0-9.0</td> </tr> <tr> <td >GRANULOCYTE %</td> <td>81.0 %</td> <td>50-75</td> </tr> <tr> <td>LYMPHOCYTE #</td> <td>2.3 k/cumm</ td> <td>1.0-4.0</td> </tr> <tr> <td>LYMPHOCYTE & #37;</td> <td>12.4 %</td> <td>20-30</td> </tr> <tr> <td>MEAN CELL HGB</td> <td>30.9 pg</td> <td> 27.0-33.0</td> </tr> <tr> <td>MEAN CELL HGB CONCENTRATION </td> <td>34.2 g/dL</td> <td>32.0-37.0</td> </tr> <tr> <td>MEAN CELL VOLUME</td> <td>90.4 fl</td> < td>80.0-100.0</td> </tr> <tr> <td>MONOCYTE #</td> <td>1.1 k/cumm</td> <td>0.1-1.0</td> </tr> <tr> <td>MONOCYTE %</td> <td>5.7 %</td> <td>4-6</td> </tr> <tr> <td>MEAN PLATELET VOLUME</td> <td> 10.3 fl</td> <td>8.5-10.9</td> </tr> <tr> <td> RED BLOOD CELL</td> <td>3.85 m/cumm</td> <td>4.00-6.00</td> </tr> <tr> <td>RED CELL DISTRIBUTION WIDTH</td> < td>13.8 %</td> <td>11.0-15.6</td> </tr> <tr> <td>WHITE BLOOD CELL</td> <td>18.7 k/cumm</td> <td>5.0-10.0< /td> </tr> <tr> <td>HEMOGLOBIN</td> <td>11.9 gm/ dL</td> <td>14.0-18.0</td> </tr> <tr> <td> HEMATOCRIT</td> <td>34.8 %</td> <td>40.0-54.0</td> </tr> <tr> <td>NRBC %</td> <td>0.0 /100 WBC</td> <td>0.0-0.0</td> </tr> <tr> <td>PLATELET COUNT</ td> <td>277 k/cumm</td> <td>150-400</td> </tr> < tr> <td>IMMATURE GRANULOCYTE %</td> <td>0.6 %</td> <td>0.0-0.6</td> </tr> <tr> <td>IMMATURE GRANULOCYTE #</td> <td>0.12 k/cumm</td> <td>0.00-0.09</td> </tr> <tr> <th colspan="10">PROTHROMBIN TIME WITH INR - 00:53</th> </tr> <tr> <td>INTERNATIONAL NORMAL RATIO</td> <td>1.1 </td> <td>0.9-1.1</td> </tr> <tr> <td>PROTHROMBIN TIME</td> <td>12.3 sec</td> <td> 10.0-12.8</td> </tr> <tr> <th colspan="10">METABOLIC PANEL, COMPREHN - 05/01/18 00:53</th> </tr> <tr> <td> POTASSIUM</td> <td>4.5 mmol/L</td> <td>3.5-5.3</td> </ tr> <tr> <td>EST GFR (MDRD)</td> <td>49 mL/min</td> <td>> 59</td> </tr> <tr> <td>ANION GAP</td> <td>17 mmol/L</td> <td>5-15</td> </tr> <tr> <td>EST CrCl (CG)</td> <td>50 mL/min</td> <td>> 59</td > </tr> <tr> <td>GLUCOSE</td> <td>179 mg/dL</td > <td>70-99</td> </tr> <tr> <td>CALCIUM</td> <td>8.6 mg/dL</td> <td>8.5-10.1</td> </tr> <tr> <td>BLOOD UREA NITROGEN</td> <td>24 mg/dL</td> <td>7- 20</td> </tr> <tr> <td>CREATININE</td> <td>1.4 mg/dL</td> <td>0.7-1.3</td> </tr> <tr> <td> SODIUM</td> <td>142 mmol/L</td> <td>135-148</td> </tr> <tr> <td>CHLORIDE</td> <td>106 mmol/L</td> < td>98-110</td> </tr> <tr> <td>AST/SGOT</td> <td> 22 Units/L</td> <td>10-37</td> </tr> <tr> <td> ALT/SGPT</td> <td>33 Units/L</td> <td>< 66</td> </tr > <tr> <td>CARBON DIOXIDE</td> <td>19 mmol/L</td> <td>21-32</td> </tr> <tr> <td>TOTAL PROTEIN</td> <td>6.6 gm/dL</td> <td>6.4-8.2</td> </tr> <tr> <td>ALBUMIN</td> <td>3.4 gm/dL</td> <td>3.4-5.0</td> </tr> <tr> <td>BILI TOTAL</td> <td>1.2 mg/dL</td > <td>0.0-1.0</td> </tr> <tr> <td>ALKALINE PHOSPHATASE TOTAL</td> <td>67 IU/L</td> <td>45-117</td> </tr> <tr> < colspan="10">CBC - 05/01/18 06:00</th> < /tr> <tr> <td>MEAN CELL HGB</td> <td>31.1 pg</td> <td>27.0-33.0</td> </tr> <tr> <td>MEAN CELL HGB CONCENTRATION</td> <td>34.9 g/dL</td> <td>32.0-37.0</td> </tr> <tr> <td>MEAN CELL VOLUME</td> <td>89.2 fl</td > <td>80.0-100.0</td> </tr> <tr> <td>MEAN PLATELET VOLUME</td> <td>9.9 fl</td> <td>8.5-10.9</td> </tr> <tr> <td>RED BLOOD CELL</td> <td>3.34 m/cumm</td > <td>4.00-6.00</td> </tr> <tr> <td>RED CELL DISTRIBUTION WIDTH</td> <td>13.9 %</td> <td>11.0-15.6</td > </tr> <tr> <td>WHITE BLOOD CELL</td> <td>15.6 k/cumm</td> <td>5.0-10.0</td> </tr> <tr> <td> HEMOGLOBIN</td> <td>10.4 gm/dL</td> <td>14.0-18.0</td> </tr> <tr> <td>HEMATOCRIT</td> <td>29.8 %</td> <td>40.0-54.0</td> </tr> <tr> <td>NRBC %</td> <td>0.0 /100 WBC</td> <td>0.0-0.0</td> </tr> <tr > <td>PLATELET COUNT</td> <td>160 k/cumm</td> <td>150 -400</td> </tr> <tr> <th colspan="10">CBC W/DIFF - 14:21</th> </tr> <tr> <td>BASOPHIL #</td> <td >0.0 k/cumm</td> <td>0.0-0.2</td> </tr> <tr> <td >BASOPHIL %</td> <td>0.2 %</td> <td>0-1</td> </ tr> <tr> <td>EOSINOPHIL #</td> <td>0.0 k/cumm</td> <td>0.1-0.5</td> </tr> <tr> <td>EOSINOPHIL %</ td> <td>0.1 %</td> <td>2-4</td> </tr> <tr> <td>GRANULOCYTE #</td> <td>10.7 k/cumm</td> <td>2.0- 9.0</td> </tr> <tr> <td>GRANULOCYTE %</td> < td>79.2 %</td> <td>50-75</td> </tr> <tr> <td >LYMPHOCYTE #</td> <td>2.0 k/cumm</td> <td>1.0-4.0</td> </tr> <tr> <td>LYMPHOCYTE %</td> <td>14.7 %</ td> <td>20-30</td> </tr> <tr> <td>MEAN CELL HGB< /td> <td>30.9 pg</td> <td>27.0-33.0</td> </tr> < tr> <td>MEAN CELL HGB CONCENTRATION</td> <td>33.8 g/dL</td> <td>32.0-37.0</td> </tr> <tr> <td>MEAN CELL VOLUME</td> <td>91.2 fl</td> <td>80.0-100.0</td> </tr> <tr> <td>MONOCYTE #</td> <td>0.7 k/cumm</td> <td>0.1-1.0</td> </tr> <tr> <td>MONOCYTE %</td> <td>5.3 %</td> <td>4-6</td> </tr> <tr> <td>MEAN PLATELET VOLUME</td> <td>10.1 fl</td> <td>8.5-10.9</ td> </tr> <tr> <td>RED BLOOD CELL</td> <td>2.85 m/cumm</td> <td>4.00-6.00</td> </tr> <tr> <td> RED CELL DISTRIBUTION WIDTH</td> <td>14.0 %</td> <td>11.0- 15.6</td> </tr> <tr> <td>WHITE BLOOD CELL</td> < td>13.5 k/cumm</td> <td>5.0-10.0</td> </tr> <tr> <td>HEMOGLOBIN</td> <td>8.8 gm/dL</td> <td>14.0-18.0</td> </tr> <tr> <td>HEMATOCRIT</td> <td>26.0 %</td > <td>40.0-54.0</td> </tr> <tr> <td>NRBC %</ td> <td>0.0 /100 WBC</td> <td>0.0-0.0</td> </tr> <tr> <td>PLATELET COUNT</td> <td>158 k/cumm</td> < td>150-400</td> </tr> <tr> <td>IMMATURE GRANULOCYTE % </td> <td>0.5 %</td> <td>0.0-0.6</td> </tr> <tr> <td>IMMATURE GRANULOCYTE #</td> <td>0.07 k/cumm</td> <td>0.00-0.09</td> </tr> <tr> < colspan="10"> GLUCOSE (POC) - 05/01/18 16:33</th> </tr> <tr> <td> GLUCOSE (POC)</td> <td>92 mg/dL</td> <td>70-99</td> </ tr> <tr> < colspan="10">HEMOGLOBIN - 05/01/18 19:53</th> </tr> <tr> <td>MEAN CELL VOLUME</td> <td>92.0 fl</td > <td>80.0-100.0</td> </tr> <tr> <td>HEMOGLOBIN< /td> <td>9.0 gm/dL</td> <td>14.0-18.0</td> </tr> <tr> < colspan="10">GLUCOSE (POC) - 05/01/18 21:22</th> </tr > <tr> <td>GLUCOSE (POC)</td> <td>119 mg/dL</td> <td>70-99</td> </tr> <tr> < colspan="10">CBC W/ DIFF - 05/02/18 03:17</th> </tr> <tr> <td>BASOPHIL #</td > <td>0.0 k/cumm</td> <td>0.0-0.2</td> </tr> <tr > <td>BASOPHIL %</td> <td>0.1 %</td> <td>0-1< /td> </tr> <tr> <td>EOSINOPHIL #</td> <td>0.0 k/ cumm</td> <td>0.1-0.5</td> </tr> <tr> <td> EOSINOPHIL %</td> <td>0.0 %</td> <td>2-4</td> < /tr> <tr> <td>GRANULOCYTE #</td> <td>9.4 k/cumm</td> <td>2.0-9.0</td> </tr> <tr> <td>GRANULOCYTE % </td> <td>91.5 %</td> <td>50-75</td> </tr> < tr> <td>LYMPHOCYTE #</td> <td>0.6 k/cumm</td> <td>1.0 -4.0</td> </tr> <tr> <td>LYMPHOCYTE %</td> < td>6.0 %</td> <td>20-30</td> </tr> <tr> <td> MEAN CELL HGB</td> <td>31.2 pg</td> <td>27.0-33.0</td> </tr> <tr> <td>MEAN CELL HGB CONCENTRATION</td> <td> 34.4 g/dL</td> <td>32.0-37.0</td> </tr> <tr> <td >MEAN CELL VOLUME</td> <td>90.7 fl</td> <td>80.0-100.0</td> </tr> <tr> <td>MONOCYTE #</td> <td>0.2 k/cumm</td > <td>0.1-1.0</td> </tr> <tr> <td>MONOCYTE % </td> <td>1.7 %</td> <td>4-6</td> </tr> <tr > <td>MEAN PLATELET VOLUME</td> <td>10.1 fl</td> <td> 8.5-10.9</td> </tr> <tr> <td>RED BLOOD CELL</td> <td>3.01 m/cumm</td> <td>4.00-6.00</td> </tr> <tr> <td>RED CELL DISTRIBUTION WIDTH</td> <td>13.9 %</td> <td>11.0-15.6</td> </tr> <tr> <td>WHITE BLOOD CELL</td > <td>10.3 k/cumm</td> <td>5.0-10.0</td> </tr> < tr> <td>HEMOGLOBIN</td> <td>9.4 gm/dL</td> <td>14.0- 18.0</td> </tr> <tr> <td>HEMATOCRIT</td> <td> 27.3 %</td> <td>40.0-54.0</td> </tr> <tr> < td>NRBC %</td> <td>0.0 /100 WBC</td> <td>0.0-0.0</td> </tr> <tr> <td>PLATELET COUNT</td> <td>157 k/cumm</ td> <td>150-400</td> </tr> <tr> <td>IMMATURE GRANULOCYTE %</td> <td>0.7 %</td> <td>0.0-0.6</td> </tr> <tr> <td>IMMATURE GRANULOCYTE #</td> <td> 0.07 k/cumm</td> <td>0.00-0.09</td> </tr> <tr> < th colspan="10">[facility] 03:17</th> </tr> <tr> <td>POTASSIUM</td> <td>4.4 mmol/L</td> <td> 3.5-5.3</td> </tr> <tr> <td>EST GFR (MDRD)</td> <td>53 mL/min</td> <td>> 59</td> </tr> <tr> < td>ANION GAP</td> <td>9 mmol/L</td> <td>5-15</td> </tr > <tr> <td>EST CrCl (CG)</td> <td>54 mL/min</td> <td>> 59</td> </tr> <tr> <td>GLUCOSE</td> <td>139 mg/dL</td> <td>70-99</td> </tr> <tr> < td>CALCIUM</td> <td>8.2 mg/dL</td> <td>8.5-10.1</td> </ tr> <tr> <td>BLOOD UREA NITROGEN</td> <td>22 mg/dL</td > <td>7-20</td> </tr> <tr> <td>CREATININE</td> <td>1.3 mg/dL</td> <td>0.7-1.3</td> </tr> <tr> <td>SODIUM</td> <td>139 mmol/L</td> <td>135-148</td> </tr> <tr> <td>CHLORIDE</td> <td>108 mmol/L</td > <td>98-110</td> </tr> <tr> <td>AST/SGOT</td> <td>24 Units/L</td> <td>10-37</td> </tr> <tr> <td>ALT/SGPT</td> <td>28 Units/L</td> <td>< 66</td > </tr> <tr> <td>CARBON DIOXIDE</td> <td>22 mmol /L</td> <td>21-32</td> </tr> <tr> <td>TOTAL PROTEIN</td> <td>5.6 gm/dL</td> <td>6.4-8.2</td> </tr> <tr> <td>ALBUMIN</td> <td>2.8 gm/dL</td> <td> 3.4-5.0</td> </tr> <tr> <td>BILI TOTAL</td> <td> 1.2 mg/dL</td> <td>0.0-1.0</td> </tr> <tr> <td> ALKALINE PHOSPHATASE TOTAL</td> <td>50 IU/L</td> <td>45-117</ td> </tr> <tr> <th colspan="10">GLUCOSE (POC) - 05/02/18 11:35</th> </tr> <tr> <td>GLUCOSE (POC)</td> <td >100 mg/dL</td> <td>70-99</td> </tr> <tr> <th colspan="10">GLUCOSE (POC) - 05/02/18 16:14</th> </tr> <tr> <td>GLUCOSE (POC)</td> <td>90 mg/dL</td> <td>70-99</td> </tr> <tr> <th colspan="10">CBC - 05/02/18 16:14</th> </tr> <tr> <td>MEAN CELL HGB</td> <td>31.1 pg</td> <td>27.0-33.0</td> </tr> <tr> <td>MEAN CELL HGB CONCENTRATION</td> <td>33.9 g/dL</td> <td>32.0-37.0</td> </tr> <tr> <td>MEAN CELL VOLUME</td> <td>91.9 fl </td> <td>80.0-100.0</td> </tr> <tr> <td>MEAN PLATELET VOLUME</td> <td>10.5 fl</td> <td>8.5-10.9</td> </tr> <tr> <td>RED BLOOD CELL</td> <td>2.73 m/cumm</ td> <td>4.00-6.00</td> </tr> <tr> <td>RED CELL DISTRIBUTION WIDTH</td> <td>13.9 %</td> <td>11.0-15.6</td > </tr> <tr> <td>WHITE BLOOD CELL</td> <td>8.2 k /cumm</td> <td>5.0-10.0</td> </tr> <tr> <td> HEMOGLOBIN</td> <td>8.5 gm/dL</td> <td>14.0-18.0</td> < /tr> <tr> <td>HEMATOCRIT</td> <td>25.1 %</td> <td>40.0-54.0</td> </tr> <tr> <td>NRBC %</td> <td>0.0 /100 WBC</td> <td>0.0-0.0</td> </tr> <tr > <td>PLATELET COUNT</td> <td>155 k/cumm</td> <td>150 -400</td> </tr> <tr> <th colspan="10">CBC W/DIFF - 04:08</th> </tr> <tr> <td>BASOPHIL #</td> <td >0.0 k/cumm</td> <td>0.0-0.2</td> </tr> <tr> <td >BASOPHIL %</td> <td>0.3 %</td> <td>0-1</td> </ tr> <tr> <td>EOSINOPHIL #</td> <td>0.2 k/cumm</td> <td>0.1-0.5</td> </tr> <tr> <td>EOSINOPHIL %</ td> <td>2.4 %</td> <td>2-4</td> </tr> <tr> <td>GRANULOCYTE #</td> <td>4.3 k/cumm</td> <td>2.0- 9.0</td> </tr> <tr> <td>GRANULOCYTE %</td> < td>64.3 %</td> <td>50-75</td> </tr> <tr> <td >LYMPHOCYTE #</td> <td>1.8 k/cumm</td> <td>1.0-4.0</td> </tr> <tr> <td>LYMPHOCYTE %</td> <td>26.5 %</ td> <td>20-30</td> </tr> <tr> <td>MEAN CELL HGB< /td> <td>30.7 pg</td> <td>27.0-33.0</td> </tr> < tr> <td>MEAN CELL HGB CONCENTRATION</td> <td>34.2 g/dL</td> <td>32.0-37.0</td> </tr> <tr> <td>MEAN CELL VOLUME</td> <td>89.9 fl</td> <td>80.0-100.0</td> </tr> <tr> <td>MONOCYTE #</td> <td>0.4 k/cumm</td> <td>0.1-1.0</td> </tr> <tr> <td>MONOCYTE %</td> <td>5.7 %</td> <td>4-6</td> </tr> <tr> <td>MEAN PLATELET VOLUME</td> <td>10.2 fl</td> <td>8.5-10.9</ td> </tr> <tr> <td>RED BLOOD CELL</td> <td>2.67 m/cumm</td> <td>4.00-6.00</td> </tr> <tr> <td> RED CELL DISTRIBUTION WIDTH</td> <td>13.8 %</td> <td>11.0- 15.6</td> </tr> <tr> <td>WHITE BLOOD CELL</td> < td>6.6 k/cumm</td> <td>5.0-10.0</td> </tr> <tr> <td>HEMOGLOBIN</td> <td>8.2 gm/dL</td> <td>14.0-18.0</td> </tr> <tr> <td>HEMATOCRIT</td> <td>24.0 %</td> <td>40.0-54.0</td> </tr> <tr> <td>NRBC %</ td> <td>0.0 /100 WBC</td> <td>0.0-0.0</td> </tr> <tr> <td>PLATELET COUNT</td> <td>152 k/cumm</td> < td>150-400</td> </tr> <tr> <td>IMMATURE GRANULOCYTE % </td> <td>0.8 %</td> <td>0.0-0.6</td> </tr> <tr> <td>IMMATURE GRANULOCYTE #</td> <td>0.05 k/cumm</td> <td>0.00-0.09</td> </tr> <tr> <th colspan="10"> METABOLIC PANEL, BASIC - 05/03/18 04:08</th> </tr> <tr> < td>POTASSIUM</td> <td>3.7 mmol/L</td> <td>3.5-5.3</td> </tr> <tr> <td>EST GFR (MDRD)</td> <td>> 60 mL/min</ td> <td>> 59</td> </tr> <tr> <td>ANION GAP</ td> <td>10 mmol/L</td> <td>5-15</td> </tr> <tr> <td>EST CrCl (CG)</td> <td>> 60 mL/min</td> <td>& gt; 59</td> </tr> <tr> <td>GLUCOSE</td> <td>92 mg/dL</td> <td>70-99</td> </tr> <tr> <td>CALCIUM </td> <td>8.1 mg/dL</td> <td>8.5-10.1</td> </tr> <tr> <td>BLOOD UREA NITROGEN</td> <td>17 mg/dL</td> <td>7-20</td> </tr> <tr> <td>CREATININE</td> < td>1.1 mg/dL</td> <td>0.7-1.3</td> </tr> <tr> < td>SODIUM</td> <td>140 mmol/L</td> <td>135-148</td> </ tr> <tr> <td>CHLORIDE</td> <td>108 mmol/L</td> <td>98-110</td> </tr> <tr> <td>CARBON DIOXIDE</td> <td>22 mmol/L</td> <td>21-32</td> </tr> <tr> <th colspan="10">PHOSPHORUS - 05/03/18 04:08</th> </tr> <tr> <td>PHOSPHORUS</td> <td>2.5 mg/dL</td> <td>2.5-4.9</ td> </tr> <tr> <th colspan="10">MAGNESIUM - 05/03/18 04: 08</th> </tr> <tr> <td>MAGNESIUM</td> <td>1.5 mg /dL</td> <td>1.8-2.4</td> </tr> <tr> <th colspan ="10">HGB HCT - 05/03/18 14:30</th> </tr> <tr> <td> MEAN CELL VOLUME</td> <td>90.9 fl</td> <td>80.0-100.0</td> </tr> <tr> <td>HEMOGLOBIN</td> <td>8.4 gm/dL</td> <td>14.0-18.0</td> </tr> <tr> <td>HEMATOCRIT</ td> <td>25.1 %</td> <td>40.0-54.0</td> </tr> <tr> < colspan="10">RENAL FUNCTION PANEL - 05/03/18 14:30</th> </tr> <tr> <td>POTASSIUM</td> <td>3.5 mmol/L</td> <td>3.5-5.3</td> </tr> <tr> <td>EST GFR (MDRD)</ td> <td>58 mL/min</td> <td>> 59</td> </tr> < tr> <td>ANION GAP</td> <td>11 mmol/L</td> <td>5-15</ td> </tr> <tr> <td>EST CrCl (CG)</td> <td>60 mL/ min</td> <td>> 59</td> </tr> <tr> <td>GLUCOSE </td> <td>90 mg/dL</td> <td>70-99</td> </tr> <tr > <td>CALCIUM</td> <td>8.2 mg/dL</td> <td>8.5-10.1</ td> </tr> <tr> <td>BLOOD UREA NITROGEN</td> <td> 14 mg/dL</td> <td>7-20</td> </tr> <tr> <td> CREATININE</td> <td>1.2 mg/dL</td> <td>0.7-1.3</td> </ tr> <tr> <td>SODIUM</td> <td>141 mmol/L</td> < td>135-148</td> </tr> <tr> <td>CHLORIDE</td> <td >107 mmol/L</td> <td>98-110</td> </tr> <tr> <td> CARBON DIOXIDE</td> <td>23 mmol/L</td> <td>21-32</td> < /tr> <tr> <td>ALBUMIN</td> <td>2.8 gm/dL</td> <td>3.4-5.0</td> </tr> <tr> <td>PHOSPHORUS</td> <td>3.1 mg/dL</td> <td>2.5-4.9</td> </tr> <tr> < th colspan="10">MAGNESIUM - 05/03/18 14:30</th> </tr> <tr> <td>MAGNESIUM</td> <td>1.9 mg/dL</td> <td>1.8-2.4</td> </tr> <tr> <th colspan="10">CBC W/DIFF - 05/04/18 03:44</th > </tr> <tr> <td>BASOPHIL #</td> <td>0.0 k/cumm< /td> <td>0.0-0.2</td> </tr> <tr> <td>BASOPHIL &# 37;</td> <td>0.2 %</td> <td>0-1</td> </tr> < tr> <td>EOSINOPHIL #</td> <td>0.2 k/cumm</td> <td>0.1 -0.5</td> </tr> <tr> <td>EOSINOPHIL %</td> < td>2.6 %</td> <td>2-4</td> </tr> <tr> <td> GRANULOCYTE #</td> <td>4.0 k/cumm</td> <td>2.0-9.0</td> </tr> <tr> <td>GRANULOCYTE %</td> <td>64.9 %< /td> <td>50-75</td> </tr> <tr> <td>LYMPHOCYTE #< /td> <td>1.5 k/cumm</td> <td>1.0-4.0</td> </tr> <tr> <td>LYMPHOCYTE %</td> <td>24.1 %</td> < td>20-30</td> </tr> <tr> <td>MEAN CELL HGB</td> <td>31.3 pg</td> <td>27.0-33.0</td> </tr> <tr> < td>MEAN CELL HGB CONCENTRATION</td> <td>34.9 g/dL</td> <td> 32.0-37.0</td> </tr> <tr> <td>MEAN CELL VOLUME</td> <td>89.8 fl</td> <td>80.0-100.0</td> </tr> <tr> <td>MONOCYTE #</td> <td>0.4 k/cumm</td> <td>0.1-1.0</td > </tr> <tr> <td>MONOCYTE %</td> <td>7.2 &# 37;</td> <td>4-6</td> </tr> <tr> <td>MEAN PLATELET VOLUME</td> <td>9.8 fl</td> <td>8.5-10.9</td> </tr> <tr> <td>RED BLOOD CELL</td> <td>2.65 m/cumm</td > <td>4.00-6.00</td> </tr> <tr> <td>RED CELL DISTRIBUTION WIDTH</td> <td>13.7 %</td> <td>11.0-15.6</td > </tr> <tr> <td>WHITE BLOOD CELL</td> <td>6.1 k /cumm</td> <td>5.0-10.0</td> </tr> <tr> <td> HEMOGLOBIN</td> <td>8.3 gm/dL</td> <td>14.0-18.0</td> < /tr> <tr> <td>HEMATOCRIT</td> <td>23.8 %</td> <td>40.0-54.0</td> </tr> <tr> <td>NRBC %</td> <td>0.0 /100 WBC</td> <td>0.0-0.0</td> </tr> <tr > <td>PLATELET COUNT</td> <td>171 k/cumm</td> <td>150 -400</td> </tr> <tr> <td>IMMATURE GRANULOCYTE %</td> <td>1.0 %</td> <td>0.0-0.6</td> </tr> <tr> <td>IMMATURE GRANULOCYTE #</td> <td>0.06 k/cumm</td> <td>0.00-0.09</td> </tr> <tr> <th colspan="10"> METABOLIC PANEL, BASIC - 05/04/18 03:44</th> </tr> <tr> < td>POTASSIUM</td> <td>3.3 mmol/L</td> <td>3.5-5.3</td> </tr> <tr> <td>EST GFR (MDRD)</td> <td>> 60 mL/min</ td> <td>> 59</td> </tr> <tr> <td>ANION GAP</ td> <td>9 mmol/L</td> <td>5-15</td> </tr> <tr> <td>EST CrCl (CG)</td> <td>> 60 mL/min</td> <td>& gt; 59</td> </tr> <tr> <td>GLUCOSE</td> <td>95 mg/dL</td> <td>70-99</td> </tr> <tr> <td>CALCIUM </td> <td>8.3 mg/dL</td> <td>8.5-10.1</td> </tr> <tr> <td>BLOOD UREA NITROGEN</td> <td>11 mg/dL</td> <td>7-20</td> </tr> <tr> <td>CREATININE</td> < td>1.1 mg/dL</td> <td>0.7-1.3</td> </tr> <tr> < td>SODIUM</td> <td>140 mmol/L</td> <td>135-148</td> </ tr> <tr> <td>CHLORIDE</td> <td>108 mmol/L</td> <td>98-110</td> </tr> <tr> <td>CARBON DIOXIDE</td> <td>23 mmol/L</td> <td>21-32</td> </tr> <tr> <th colspan="10">PHOSPHORUS - 05/04/18 03:44</th> </tr> <tr> <td>PHOSPHORUS</td> <td>3.5 mg/dL</td> <td>2.5-4.9</ td> </tr> <tr> <th colspan="10">MAGNESIUM - 05/04/18 03: 44</th> </tr> <tr> <td>MAGNESIUM</td> <td>1.7 mg /dL</td> <td>1.8-2.4</td> </tr> <tr> <th colspan ="10">CBC W/DIFF - 05/05/18 06:00</th> </tr> <tr> <td> BASOPHIL #</td> <td>0.0 k/cumm</td> <td>0.0-0.2</td> </ tr> <tr> <td>BASOPHIL %</td> <td>0.3 %</td> <td>0-1</td> </tr> <tr> <td>EOSINOPHIL #</td> <td>0.2 k/cumm</td> <td>0.1-0.5</td> </tr> <tr> <td>EOSINOPHIL %</td> <td>2.5 %</td> <td>2-4</ td> </tr> <tr> <td>GRANULOCYTE #</td> <td>3.8 k/ cumm</td> <td>2.0-9.0</td> </tr> <tr> <td> GRANULOCYTE %</td> <td>63.4 %</td> <td>50-75</td> </tr> <tr> <td>LYMPHOCYTE #</td> <td>1.6 k/cumm</td > <td>1.0-4.0</td> </tr> <tr> <td>LYMPHOCYTE &# 37;</td> <td>26.2 %</td> <td>20-30</td> </tr> <tr> <td>MEAN CELL HGB</td> <td>30.3 pg</td> <td> 27.0-33.0</td> </tr> <tr> <td>MEAN CELL HGB CONCENTRATION </td> <td>33.7 g/dL</td> <td>32.0-37.0</td> </tr> <tr> <td>MEAN CELL VOLUME</td> <td>89.8 fl</td> < td>80.0-100.0</td> </tr> <tr> <td>MONOCYTE #</td> <td>0.4 k/cumm</td> <td>0.1-1.0</td> </tr> <tr> <td>MONOCYTE %</td> <td>6.6 %</td> <td>4-6</td> </tr> <tr> <td>MEAN PLATELET VOLUME</td> <td>9.5 fl</td> <td>8.5-10.9</td> </tr> <tr> <td>RED BLOOD CELL</td> <td>2.94 m/cumm</td> <td>4.00-6.00</td> </tr> <tr> <td>RED CELL DISTRIBUTION WIDTH</td> <td> 13.9 %</td> <td>11.0-15.6</td> </tr> <tr> < td>WHITE BLOOD CELL</td> <td>6.0 k/cumm</td> <td>5.0-10.0</td > </tr> <tr> <td>HEMOGLOBIN</td> <td>8.9 gm/dL</ td> <td>14.0-18.0</td> </tr> <tr> <td>HEMATOCRIT </td> <td>26.4 %</td> <td>40.0-54.0</td> </tr> <tr> <td>NRBC %</td> <td>0.0 /100 WBC</td> < td>0.0-0.0</td> </tr> <tr> <td>PLATELET COUNT</td> <td>231 k/cumm</td> <td>150-400</td> </tr> <tr> <td>IMMATURE GRANULOCYTE %</td> <td>1.0 %</td> < td>0.0-0.6</td> </tr> <tr> <td>IMMATURE GRANULOCYTE #</td > <td>0.06 k/cumm</td> <td>0.00-0.09</td> </tr> <tr> < colspan="10">METABOLIC PANEL, BASIC - 05/05/18 06:00</th> </tr> <tr> <td>POTASSIUM</td> <td>3.7 mmol/L</td> <td>3.5-5.3</td> </tr> <tr> <td>EST GFR (MDRD)</ td> <td>> 60 mL/min</td> <td>> 59</td> </tr> <tr> <td>ANION GAP</td> <td>9 mmol/L</td> <td>5- 15</td> </tr> <tr> <td>EST CrCl (CG)</td> <td>& gt; 60 mL/min</td> <td>> 59</td> </tr> <tr> < td>GLUCOSE</td> <td>101 mg/dL</td> <td>70-99</td> </tr > <tr> <td>CALCIUM</td> <td>8.6 mg/dL</td> <td >8.5-10.1</td> </tr> <tr> <td>BLOOD UREA NITROGEN</td> <td>9 mg/dL</td> <td>7-20</td> </tr> <tr> <td>CREATININE</td> <td>1.1 mg/dL</td> <td>0.7-1.3</td> </tr> <tr> <td>SODIUM</td> <td>142 mmol/L</td> <td>135-148</td> </tr> <tr> <td>CHLORIDE</td> <td>110 mmol/L</td> <td>98-110</td> </tr> <tr> <td>CARBON DIOXIDE</td> <td>23 mmol/L</td> <td>21-32</td > </tr> <tr> < colspan="10">MAGNESIUM - 05/05/18 06:00< /th> </tr> <tr> <td>MAGNESIUM</td> <td>2.1 mg/dL </td> <td>1.8-2.4</td> </tr> <tr> <th colspan= "10">Complete blood count (CBC) with automated white blood cell (WBC) differential - 11/27/18 14:23</th> </tr> <tr> <td>Blood leukocytes automated count (number/volume)</td> <td>7.5 10*3/uL</td> <td>4.3-11.0</td> </tr> <tr> <td>Blood erythrocytes automated count (number/volume)</td> <td>4.81 10*6/uL</td > <td>4.35-5.85</td> </tr> <tr> <td>Venous blood hemoglobin measurement (mass/volume)</td> <td>14.9 g/dL</td> <td>13.3-17.7</td> </tr> <tr> <td>Blood hematocrit (volume fraction)</td> <td>42 %</td> <td>40-54</td> </tr> <tr> <td>Automated erythrocyte mean corpuscular volume</ td> <td>88 [foz_us]</td> <td>80-99</td> </tr> < tr> <td>Automated erythrocyte mean corpuscular hemoglobin (mass per erythrocyte)</td> <td>31 pg</td> <td>25-34</td> </tr> <tr> <td>Automated erythrocyte mean corpuscular hemoglobin concentration measurement (mass/volume)</td> <td>35 g/dL</td> <td>32-36</td> </tr> <tr> <td>Automated erythrocyte distribution width ratio</td> <td>14.7 %</td> <td>10.0- 14.5</td> </tr> <tr> <td>Automated blood platelet count ( count/volume)</td> <td>238 10*3/uL</td> <td>130-400</td> </tr> <tr> <td>Automated blood platelet mean volume measurement</td> <td>9.9 [foz_us]</td> <td>7.4-10.4</td> </tr> <tr> <td>Automated blood neutrophils/100 leukocytes</td > <td>61 %</td> <td>42-75</td> </tr> <tr> <td>Automated blood lymphocytes/100 leukocytes</td> <td>28 &#37 ;</td> <td>12-44</td> </tr> <tr> <td>Blood monocytes/100 leukocytes</td> <td>8 %</td> <td>0-12</td> </tr> <tr> <td>Automated blood eosinophils/100 leukocytes </td> <td>3 %</td> <td>0-10</td> </tr> <tr> <td>Automated blood basophils/100 leukocytes</td> <td>0 % </td> <td>0-10</td> </tr> <tr> <td>Blood neutrophils automated count (number/volume)</td> <td>4.6 10*3</td> <td>1.8-7.8</td> </tr> <tr> <td>Blood lymphocytes automated count (number/volume)</td> <td>2.1 10*3</td> <td>1.0 -4.0</td> </tr> <tr> <td>Blood monocytes automated count (number/volume)</td> <td>0.6 10*3</td> <td>0.0-1.0</td> </tr> <tr> <td>Automated eosinophil count</td> <td> 0.2 10*3/uL</td> <td>0.0-0.3</td> </tr> <tr> <td >Automated blood basophil count (count/volume)</td> <td>0.0 10*3/uL</td > <td>0.0-0.1</td> </tr> <tr> <th colspan="10"> Comprehensive metabolic panel - 11/27/18 14:23</th> </tr> <tr> <td>Serum or plasma sodium measurement (moles/volume)</td> <td> 141 mmol/L</td> <td>135-145</td> </tr> <tr> <td> Serum or plasma potassium measurement (moles/volume)</td> <td>3.5 mmol/ L</td> <td>3.6-5.0</td> </tr> <tr> <td>Serum or plasma chloride measurement (moles/volume)</td> <td>109 mmol/L</td> <td>98-107</td> </tr> <tr> <td>Carbon dioxide</td > <td>20 mmol/L</td> <td>21-32</td> </tr> <tr> <td>Serum or plasma anion gap determination (moles/volume)</td> <td>12 mmol/L</td> <td>5-14</td> </tr> <tr> < td>Serum or plasma urea nitrogen measurement (mass/volume)</td> <td>15 mg/dL</td> <td>7-18</td> </tr> <tr> <td>Serum or plasma creatinine measurement (mass/volume)</td> <td>1.10 mg/dL</td > <td>0.60-1.30</td> </tr> <tr> <td>Serum or plasma urea nitrogen/creatinine mass ratio</td> <td>14 </td> < td>NRG</td> </tr> <tr> <td>Serum or plasma creatinine measurement with calculation of estimated glomerular filtration rate</td> <td>> </td> <td>NRG</td> </tr> <tr> <td> Serum or plasma glucose measurement (mass/volume)</td> <td>117 mg/dL</ td> <td>70-105</td> </tr> <tr> <td>Serum or plasma calcium measurement (mass/volume)</td> <td>9.5 mg/dL</td> <td>8.5-10.1</td> </tr> <tr> <td>Serum or plasma total bilirubin measurement (mass/volume)</td> <td>1.4 mg/dL</td> <td>0.1-1.0</td> </tr> <tr> <td>Serum or plasma alkaline phosphatase measurement (enzymatic activity/volume)</td> <td> 78 U/L</td> <td>40-136</td> </tr> <tr> <td> Serum or plasma aspartate aminotransferase measurement (enzymatic activity/ volume)</td> <td>21 U/L</td> <td>5-34</td> </tr> <tr> <td>Serum or plasma alanine aminotransferase measurement ( enzymatic activity/volume)</td> <td>20 U/L</td> <td>0-55</td> </tr> <tr> <td>Serum or plasma protein measurement (mass /volume)</td> <td>7.0 g/dL</td> <td>6.4-8.2</td> </tr> <tr> <td>Serum or plasma albumin measurement (mass/volume)</td > <td>4.1 g/dL</td> <td>3.2-4.5</td> </tr> <tr> <td>CALCIUM CORRECTED</td> <td>9.4 mg/dL</td> <td> 8.5-10.1</td> </tr> <tr> <th colspan="10">Serum or plasma creatine kinase measurement (enzymatic activity/volume) - 11/27/18 14:23< /th> </tr> <tr> <td>Serum or plasma creatine kinase measurement (enzymatic activity/volume)</td> <td>92 U/L</td> < td>30-200</td> </tr> <tr> <th colspan="10">Serum or plasma troponin i.cardiac measurement (mass/volume) - 11/27/18 14:23</th> </tr> <tr> <td>Serum or plasma troponin i.cardiac measurement (mass/volume)</td> <td>< ng/mL</td> <td><0.028</td> </tr> <tr> <th colspan="10">Serum or plasma thyrotropin measurement by detection limit <=0.05 miu/l (units/volume) - 11/27/18 14:23</ th> </tr> <tr> <td>Serum or plasma thyrotropin measurement by detection limit <=0.05 miu/l (units/volume)</td> <td> 0.98 u[iU]/mL</td> <td>0.35-4.94</td> </tr> </tbody> </ table> </text> <entry> <organizer moodCode="EVN" classCode="BATTERY"> <templateId root="[id number]" /> <id nullFlavor="NA" / > <code codeSystem="local" code="CBCD" displayName="CBC W/DIFF" /> < statusCode code="completed" /> <component> <observation moodCode= "EVN" classCode="OBS"> <templateId root="[id number].2 " /> <id nullFlavor="NA" /> <code codeSystem="local" code="EO# " displayName="EOSINOPHIL #" /> <statusCode code="completed" /> <effectiveTime value="[id number]" /> <value unit="k/cumm" xsi:type ="PQ" value="0.2" /> <referenceRange> <observationRange> <text>0.1-0.5</text> </observationRange> </ referenceRange> </observation> </component> <component> <observation moodCode="EVN" classCode="OBS"> <templateId root= "[id number]..4.2" /> <id nullFlavor="NA" /> < code codeSystem="local" code="EO%" displayName="EOSINOPHIL %" /> <statusCode code="completed" /> <effectiveTime value="[id number]" /> <value unit="%" xsi:type="PQ" value="3" /> < referenceRange> <observationRange> <text>2-4</text> </observationRange> </referenceRange> </observation> </component> <component> <observation moodCode="EVN" classCode= "OBS"> <templateId root="[id number]" /> < id nullFlavor="NA" /> <code codeSystem="local" code="GR#" displayName= "GRANULOCYTE #" /> <statusCode code="completed" /> < effectiveTime value="[id number]" /> <value unit="k/cumm" xsi:type="PQ " value="3.4" /> <referenceRange> <observationRange> <text>2.0-9.0</text> </observationRange> </ referenceRange> </observation> </component> <component> <observation moodCode="EVN" classCode="OBS"> <templateId root= "[id number]" /> <id nullFlavor="NA" /> < code codeSystem="local" code="GR%" displayName="GRANULOCYTE %" /> <statusCode code="completed" /> <effectiveTime value=" " /> <value unit="%" xsi:type="PQ" value="57" /> < referenceRange> <observationRange> <text>50-75</text> </observationRange> </referenceRange> </observation> </component> <component> <observation moodCode="EVN" classCode= "OBS"> <templateId root="[id number]..4.2" /> < id nullFlavor="NA" /> <code codeSystem="local" code="LY#" displayName= "LYMPHOCYTE #" /> <statusCode code="completed" /> < effectiveTime value="" /> <value unit="k/cumm" xsi:type="PQ " value="1.9" /> <referenceRange> <observationRange> <text>1.0-4.0</text> </observationRange> </ referenceRange> </observation> </component> <component> <observation moodCode="EVN" classCode="OBS"> <templateId root= "2.16.840.1.768586.104.2" /> <id nullFlavor="NA" /> < code codeSystem="local" code="LY%" displayName="LYMPHOCYTE %" /> <statusCode code="completed" /> <effectiveTime value="" /> <value unit="%" xsi:type="PQ" value="32" /> < interpretationCode codeSystem="local" code="*" /> <referenceRange> <observationRange> <text>20-30</text> </ observationRange> </referenceRange> </observation> </ component> <component> <observation moodCode="EVN" classCode="OBS"> <templateId root="[id number].2" /> <id nullFlavor="NA" /> <code codeSystem="local" code="MCH" displayName= "MEAN CELL HGB" /> <statusCode code="completed" /> < effectiveTime value="" /> <value unit="pg" xsi:type="PQ" value="29.5" /> <referenceRange> <observationRange> <text>27.0-33.0</text> </observationRange> </ referenceRange> </observation> </component> <component> <observation moodCode="EVN" classCode="OBS"> <templateId root= "[id number].2" /> <id nullFlavor="NA" /> < code codeSystem="local" code="MCHC" displayName="MEAN CELL HGB CONCENTRATION" / > <statusCode code="completed" /> <effectiveTime value= "" /> <value unit="g/dL" xsi:type="PQ" value="34.4" /> <referenceRange> <observationRange> <text>32.0- 37.0</text> </observationRange> </referenceRange> </ observation> </component> <component> <observation moodCode= "EVN" classCode="OBS"> <templateId root="[id number].2 " /> <id nullFlavor="NA" /> <code codeSystem="local" code="MCV " displayName="MEAN CELL VOLUME" /> <statusCode code="completed" /> <effectiveTime value="" /> <value unit="fl" xsi:type ="PQ" value="85.6" /> <referenceRange> <observationRange> <text>80.0-100.0</text> </observationRange> </ referenceRange> </observation> </component> <component> <observation moodCode="EVN" classCode="OBS"> <templateId root= "[id number]" /> <id nullFlavor="NA" /> < code codeSystem="local" code="MO#" displayName="MONOCYTE #" /> < statusCode code="completed" /> <effectiveTime value="" /> <value unit="k/cumm" xsi:type="PQ" value="0.5" /> < referenceRange> <observationRange> <text>0.1-1.0</text> </observationRange> </referenceRange> </observation > </component> <component> <observation moodCode="EVN" classCode="OBS"> <templateId root="216.840.1.853606.08.05.22.4.2" /> <id nullFlavor="NA" /> <code codeSystem="local" code="MO% " displayName="MONOCYTE %" /> <statusCode code="completed" /> <effectiveTime value="" /> <value unit="%" xsi: type="PQ" value="8" /> <interpretationCode codeSystem="local" code="*" /> <referenceRange> <observationRange> <text>4- 6</text> </observationRange> </referenceRange> </ observation> </component> <component> <observation moodCode= "EVN" classCode="OBS"> <templateId root="216.840.1.719969.10.22.4.2 " /> <id nullFlavor="NA" /> <code codeSystem="local" code="RBC " displayName="RED BLOOD CELL" /> <statusCode code="completed" /> <effectiveTime value="" /> <value unit="m/cumm" xsi: type="PQ" value="4.99" /> <referenceRange> <observationRange > <text>4.00-6.00</text> </observationRange> </ referenceRange> </observation> </component> <component> <observation moodCode="EVN" classCode="OBS"> <templateId root= "216.840.1.170029.10..22.4.2" /> <id nullFlavor="NA" /> < code codeSystem="local" code="RDW" displayName="RED CELL DISTRIBUTION WIDTH" /> <statusCode code="completed" /> <effectiveTime value= "[id number]" /> <value unit="%" xsi:type="PQ" value="14.4" /> <referenceRange> <observationRange> <text>11.0- 15.6</text> </observationRange> </referenceRange> </ observation> </component> <component> <observation moodCode= "EVN" classCode="OBS"> <templateId root="216.840.1.247210.10...4.2 " /> <id nullFlavor="NA" /> <code codeSystem="local" code="WBC " displayName="WHITE BLOOD CELL" /> <statusCode code="completed" /> <effectiveTime value="[id number]" /> <value unit="k/cumm" xsi: type="PQ" value="6.0" /> <referenceRange> <observationRange > <text>5.0-10.0</text> </observationRange> </ referenceRange> </observation> </component> <component> <observation moodCode="EVN" classCode="OBS"> <templateId root= "2.16.840.1.288530.10.20.22.4.2" /> <id nullFlavor="NA" /> < code codeSystem="local" code="HGBT" displayName="HEMOGLOBIN" /> < statusCode code="completed" /> <effectiveTime value="" /> <value unit="gm/dL" xsi:type="PQ" value="14.7" /> < referenceRange> <observationRange> <text>14.0-18.0</text > </observationRange> </referenceRange> </observation > </component> <component> <observation moodCode="EVN" classCode="OBS"> <templateId root="2.16.840.1.685590.10..22.4.2" /> <id nullFlavor="NA" /> <code codeSystem="local" code="HCTT" displayName="HEMATOCRIT" /> <statusCode code="completed" /> < effectiveTime value="" /> <value unit="%" xsi:type="PQ " value="42.7" /> <referenceRange> <observationRange> <text>40.0-54.0</text> </observationRange> </ referenceRange> </observation> </component> <component> <observation moodCode="EVN" classCode="OBS"> <templateId root= "2.16.840.1.260639.10..22.4.2" /> <id nullFlavor="NA" /> < code codeSystem="local" code="PLT" displayName="PLATELET COUNT" /> < statusCode code="completed" /> <effectiveTime value="" /> <value unit="k/cumm" xsi:type="PQ" value="217" /> < referenceRange> <observationRange> <text>150-450</text> </observationRange> </referenceRange> </observation > </component> </organizer> </entry> <entry> <organizer moodCode= "EVN" classCode="BATTERY"> <templateId root="2.16.840.1.158934.10.20.22.4.1 " /> <id nullFlavor="NA" /> <code codeSystem="local" code="PLAVIX" displayName="PLT FUNCTION, P2Y12 (PLAVIX)" /> <statusCode code="completed" /> <component> <observation moodCode="EVN" classCode="OBS"> <templateId root="2.16.840.1.856244.10..22.4.2" /> <id nullFlavor= "NA" /> <code codeSystem="local" code="PLAVPLT" displayName="PLATELET COUNT" /> <statusCode code="completed" /> <effectiveTime value ="" /> <value unit="k/cumm" xsi:type="PQ" value="217" /> <referenceRange> <observationRange> <text>150- 450</text> </observationRange> </referenceRange> </ observation> </component> <component> <observation moodCode= "EVN" classCode="OBS"> <templateId root="2.16.840.1.784791.10..22.4.2 " /> <id nullFlavor="NA" /> <code codeSystem="local" code= "PLTFUN" displayName="PLT FUNCTION P2Y12" /> <statusCode code= "completed" /> <effectiveTime value="" /> <value unit="PRU" xsi:type="PQ" value="172" /> <interpretationCode codeSystem= "local" code="*" /> <referenceRange> <observationRange> <text>194-418</text> </observationRange> </ referenceRange> </observation> </component> </organizer> </entry > <entry> <organizer moodCode="EVN" classCode="BATTERY"> <templateId root="12.02.840.1.395748...4.1" /> <id nullFlavor="NA" /> <code codeSystem="local" code="METAB" displayName="METABOLIC PANEL, BASIC" /> < statusCode code="completed" /> <component> <observation moodCode= "EVN" classCode="OBS"> <templateId root="840.1.568275.08.05.22.4.2 " /> <id nullFlavor="NA" /> <code codeSystem="local" code="K" displayName="POTASSIUM" /> <statusCode code="completed" /> < effectiveTime value="[id number]" /> <value unit="mmol/L" xsi:type="PQ " value="3.9" /> <referenceRange> <observationRange> <text>3.5-5.3</text> </observationRange> </ referenceRange> </observation> </component> <component> <observation moodCode="EVN" classCode="OBS"> <templateId root= "12.02.840.1.306978.08.05.22.4.2" /> <id nullFlavor="NA" /> < code codeSystem="local" code="eGFR" displayName="EST GFR (MDRD)" /> < statusCode code="completed" /> <effectiveTime value="" /> <value unit="mL/min" xsi:type="PQ" value="59" /> < interpretationCode codeSystem="local" code="*" /> <referenceRange> <observationRange> <text>> 59</text> </ observationRange> </referenceRange> </observation> </ component> <component> <observation moodCode="EVN" classCode="OBS"> <templateId root="12.02.840.1.876074.08.05.22.4.2" /> <id nullFlavor="NA" /> <code codeSystem="local" code="GAP" displayName= "ANION GAP" /> <statusCode code="completed" /> <effectiveTime value="" /> <value unit="mmol/L" xsi:type="PQ" value="13" / > <referenceRange> <observationRange> <text>5- 15</text> </observationRange> </referenceRange> </ observation> </component> <component> <observation moodCode= "EVN" classCode="OBS"> <templateId root="2.16.840.1.616678...4.2 " /> <id nullFlavor="NA" /> <code codeSystem="local" code="GLU " displayName="GLUCOSE" /> <statusCode code="completed" /> < effectiveTime value="" /> <value unit="mg/dL" xsi:type="PQ " value="92" /> <referenceRange> <observationRange> <text>70-99</text> </observationRange> </ referenceRange> </observation> </component> <component> <observation moodCode="EVN" classCode="OBS"> <templateId root= "2.16.840.1.913892.10..4.2" /> <id nullFlavor="NA" /> < code codeSystem="local" code="CA" displayName="CALCIUM" /> <statusCode code="completed" /> <effectiveTime value="" /> < value unit="mg/dL" xsi:type="PQ" value="9.0" /> <referenceRange> <observationRange> <text>8.5-10.1</text> </ observationRange> </referenceRange> </observation> </ component> <component> <observation moodCode="EVN" classCode="OBS"> <templateId root="216.840.1.237752.10..22.4.2" /> <id nullFlavor="NA" /> <code codeSystem="local" code="BUN" displayName= "BLOOD UREA NITROGEN" /> <statusCode code="completed" /> < effectiveTime value="" /> <value unit="mg/dL" xsi:type="PQ " value="15" /> <referenceRange> <observationRange> <text>7-20</text> </observationRange> </referenceRange > </observation> </component> <component> <observation moodCode="EVN" classCode="OBS"> <templateId root= "[id number]..22.4.2" /> <id nullFlavor="NA" /> < code codeSystem="local" code="CREAT" displayName="CREATININE" /> < statusCode code="completed" /> <effectiveTime value="" /> <value unit="mg/dL" xsi:type="PQ" value="1.2" /> < referenceRange> <observationRange> <text>0.7-1.3</text> </observationRange> </referenceRange> </observation > </component> <component> <observation moodCode="EVN" classCode="OBS"> <templateId root="216.840.1.897231.10..22.4.2" /> <id nullFlavor="NA" /> <code codeSystem="local" code="NA" displayName="SODIUM" /> <statusCode code="completed" /> < effectiveTime value="[id number]" /> <value unit="mmol/L" xsi:type="PQ " value="140" /> <referenceRange> <observationRange> <text>135-148</text> </observationRange> </ referenceRange> </observation> </component> <component> <observation moodCode="EVN" classCode="OBS"> <templateId root= "[id number]..4.2" /> <id nullFlavor="NA" /> < code codeSystem="local" code="CL" displayName="CHLORIDE" /> < statusCode code="completed" /> <effectiveTime value="[id number]" /> <value unit="mmol/L" xsi:type="PQ" value="105" /> < referenceRange> <observationRange> <text>98-110</text> </observationRange> </referenceRange> </observation> </component> <component> <observation moodCode="EVN" classCode ="OBS"> <templateId root="[id number]2.4.2" /> < id nullFlavor="NA" /> <code codeSystem="local" code="CO2" displayName= "CARBON DIOXIDE" /> <statusCode code="completed" /> < effectiveTime value="[id number]" /> <value unit="mmol/L" xsi:type="PQ " value="22" /> <referenceRange> <observationRange> <text>21-32</text> </observationRange> </ referenceRange> </observation> </component> </organizer> </entry > <entry> <organizer moodCode="EVN" classCode="BATTERY"> <templateId root="[id number]..4.1" /> <id nullFlavor="NA" /> <code codeSystem="local" code="HGB" displayName="HEMOGLOBIN" /> <statusCode code= "completed" /> <component> <observation moodCode="EVN" classCode= "OBS"> <templateId root="840.1.797216.22.4.2" /> < id nullFlavor="NA" /> <code codeSystem="local" code="MCV" displayName= "MEAN CELL VOLUME" /> <statusCode code="completed" /> < effectiveTime value="" /> <value unit="fl" xsi:type="PQ" value="86.8" /> <referenceRange> <observationRange> <text>80.0-100.0</text> </observationRange> </ referenceRange> </observation> </component> <component> <observation moodCode="EVN" classCode="OBS"> <templateId root= "840.1.524338.08.05.22.4.2" /> <id nullFlavor="NA" /> < code codeSystem="local" code="HGBT" displayName="HEMOGLOBIN" /> < statusCode code="completed" /> <effectiveTime value="" /> <value unit="gm/dL" xsi:type="PQ" value="12.4" /> < interpretationCode codeSystem="local" code="*" /> <referenceRange> <observationRange> <text>14.0-18.0</text> </ observationRange> </referenceRange> </observation> </ component> </organizer> </entry> <entry> <organizer moodCode="EVN" classCode="BATTERY"> <templateId root="840.1.425447.22.4.1" /> <id nullFlavor="NA" /> <code codeSystem="local" code="HCT" displayName ="HEMATOCRIT" /> <statusCode code="completed" /> <component> < observation moodCode="EVN" classCode="OBS"> <templateId root= "840.1.535578.08.05.22.4.2" /> <id nullFlavor="NA" /> < code codeSystem="local" code="MCV" displayName="MEAN CELL VOLUME" /> < statusCode code="completed" /> <effectiveTime value="" /> <value unit="fl" xsi:type="PQ" value="87.0" /> <referenceRange > <observationRange> <text>80.0-100.0</text> </observationRange> </referenceRange> </observation> </ component> <component> <observation moodCode="EVN" classCode="OBS"> <templateId root="840.1.213520.08.05.22.4.2" /> <id nullFlavor="NA" /> <code codeSystem="local" code="HCTT" displayName= "HEMATOCRIT" /> <statusCode code="completed" /> < effectiveTime value="" /> <value unit="%" xsi:type="PQ " value="36.2" /> <interpretationCode codeSystem="local" code="*" /> <referenceRange> <observationRange> <text>40.0- 54.0</text> </observationRange> </referenceRange> </ observation> </component> </organizer> </entry> <entry> <organizer moodCode="EVN" classCode="BATTERY"> <templateId root= "12.02.840.1.401997.08.05.22.4.1" /> <id nullFlavor="NA" /> <code codeSystem="local" code="UANRC" displayName="URINALYSIS, NO REFLEX CULTURE" /> <statusCode code="completed" /> <component> <observation moodCode="EVN" classCode="OBS"> <templateId root= "840.1.057046.08.05.22.4.2" /> <id nullFlavor="NA" /> < code codeSystem="local" code="LEUESU" displayName="UA LEUKOCYTE ESTERASE DIPSTICK" /> <statusCode code="completed" /> <effectiveTime value="" /> <value unit="" xsi:type="PQ" value="TRACE" /> <referenceRange> <observationRange> <text> NEGATIVE</text> </observationRange> </referenceRange> </observation> </component> <component> <observation moodCode ="EVN" classCode="OBS"> <templateId root= "216.840.1.627048.10...4.2" /> <id nullFlavor="NA" /> < code codeSystem="local" code="NITRIU" displayName="UA NITRITE DIPSTICK" /> <statusCode code="completed" /> <effectiveTime value=" " /> <value unit="" xsi:type="PQ" value="NEGATIVE" /> < referenceRange> <observationRange> <text>NEGATIVE</text > </observationRange> </referenceRange> </observation > </component> <component> <observation moodCode="EVN" classCode="OBS"> <templateId root="16.840.1.270106.10...4.2" /> <id nullFlavor="NA" /> <code codeSystem="local" code="PROTEIU " displayName="UA PROTEIN DIPSTICK" /> <statusCode code="completed" /> <effectiveTime value="" /> <value unit="" xsi: type="PQ" value="TRACE" /> <referenceRange> < observationRange> <text>NEGATIVE</text> </ observationRange> </referenceRange> </observation> </ component> <component> <observation moodCode="EVN" classCode="OBS"> <templateId root="216.840.1.733789.10.22.4.2" /> <id nullFlavor="NA" /> <code codeSystem="local" code="DGLUU" displayName= "UA GLUCOSE DIPSTICK" /> <statusCode code="completed" /> < effectiveTime value="" /> <value unit="" xsi:type="PQ" value="NEGATIVE" /> <referenceRange> <observationRange> <text>NEGATIVE</text> </observationRange> </ referenceRange> </observation> </component> <component> <observation moodCode="EVN" classCode="OBS"> <templateId root= "216.840.1.315026.10..4.2" /> <id nullFlavor="NA" /> < code codeSystem="local" code="KETONU" displayName="UA KETONE DIPSTICK" /> <statusCode code="completed" /> <effectiveTime value=" " /> <value unit="" xsi:type="PQ" value="1+" /> < interpretationCode codeSystem="local" code="*" /> <referenceRange> <observationRange> <text>NEGATIVE</text> </ observationRange> </referenceRange> </observation> </ component> <component> <observation moodCode="EVN" classCode="OBS"> <templateId root="12.02.840.1.567733.10..4.2" /> <id nullFlavor="NA" /> <code codeSystem="local" code="UROBILU" displayName= "UA UROBILINOGEN DIPSTICK" /> <statusCode code="completed" /> <effectiveTime value="" /> <value unit="" xsi:type="PQ" value="NORMAL" /> <referenceRange> <observationRange> <text>NORMAL</text> </observationRange> </ referenceRange> </observation> </component> <component> <observation moodCode="EVN" classCode="OBS"> <templateId root= "2.16.840.1.095222.10..4.2" /> <id nullFlavor="NA" /> < code codeSystem="local" code="BILU" displayName="UA BILIRUBIN DIPSTICK" /> <statusCode code="completed" /> <effectiveTime value=" " /> <value unit="" xsi:type="PQ" value="NEGATIVE" /> < referenceRange> <observationRange> <text>NEGATIVE</text > </observationRange> </referenceRange> </observation > </component> <component> <observation moodCode="EVN" classCode="OBS"> <templateId root="216.840.1.627962.08.05.22.4.2" /> <id nullFlavor="NA" /> <code codeSystem="local" code="WILD" displayName="UA BLOOD DIPSTICK" /> <statusCode code="completed" /> <effectiveTime value="" /> <value unit="" xsi:type= "PQ" value="4+" /> <interpretationCode codeSystem="local" code="*" /> <referenceRange> <observationRange> <text> NEGATIVE</text> </observationRange> </referenceRange> </observation> </component> <component> <observation moodCode ="EVN" classCode="OBS"> <templateId root= "216.840.1.693085...4.2" /> <id nullFlavor="NA" /> < code codeSystem="local" code="SPGRU" displayName="UA SPECIFIC GRAVITY" /> <statusCode code="completed" /> <effectiveTime value=" " /> <value unit="" xsi:type="PQ" value="1.015" /> < referenceRange> <observationRange> <text>1.015-1.025</ text> </observationRange> </referenceRange> </ observation> </component> <component> <observation moodCode= "EVN" classCode="OBS"> <templateId root="16.840.1.786331.08.05.22.4.2 " /> <id nullFlavor="NA" /> <code codeSystem="local" code="IRVIN " displayName="UR PH" /> <statusCode code="completed" /> < effectiveTime value="" /> <value unit="" xsi:type="PQ" value="5.0" /> <referenceRange> <observationRange> <text>5.0-7.0</text> </observationRange> </ referenceRange> </observation> </component> </organizer> </entry > <entry> <organizer moodCode="EVN" classCode="BATTERY"> <templateId root="840.1.903348.08.05.22.4.1" /> <id nullFlavor="NA" /> <code codeSystem="local" code="UAMICRO" displayName="UA MICROSCOPIC" /> < statusCode code="completed" /> <component> <observation moodCode= "EVN" classCode="OBS"> <templateId root="12.02.840.1.116129.10.4.2 " /> <id nullFlavor="NA" /> <code codeSystem="local" code= "BACU" displayName="UA BACTERIA" /> <statusCode code="completed" /> <effectiveTime value="" /> <value unit="" xsi:type= "PQ" value="1+" /> <interpretationCode codeSystem="local" code="*" /> <referenceRange> <observationRange> <text> NEGATIVE</text> </observationRange> </referenceRange> </observation> </component> <component> <observation moodCode ="EVN" classCode="OBS"> <templateId root= "16.840.1.526972.10.20.22.4.2" /> <id nullFlavor="NA" /> < code codeSystem="local" code="MUCUSU" displayName="UA MUCUS" /> < statusCode code="completed" /> <effectiveTime value="" /> <value unit="" xsi:type="PQ" value="1+" /> <referenceRange> <observationRange> <text>NEG TO 1+</text> </ observationRange> </referenceRange> </observation> </ component> <component> <observation moodCode="EVN" classCode="OBS"> <templateId root="12.02.840.1.493802.10...4.2" /> <id nullFlavor="NA" /> <code codeSystem="local" code="RBCU" displayName=" UA RBC" /> <statusCode code="completed" /> <effectiveTime value="" /> <value unit="rbc/hpf" xsi:type="PQ" value="50- 100" /> <interpretationCode codeSystem="local" code="*" /> < referenceRange> <observationRange> <text>0 - 3</text> </observationRange> </referenceRange> </observation> </component> <component> <observation moodCode="EVN" classCode= "OBS"> <templateId root="12.02.840.1.089203.10.20.22.4.2" /> < id nullFlavor="NA" /> <code codeSystem="local" code="UAVOL" displayName ="UA VOLUME FOR EXAM" /> <statusCode code="completed" /> < effectiveTime value="" /> <value unit="mL" xsi:type="PQ" value="12.0" /> <referenceRange> <observationRange> <text>(12mL STD)</text> </observationRange> </ referenceRange> </observation> </component> <component> <observation moodCode="EVN" classCode="OBS"> <templateId root= "840.1.135566.10..4.2" /> <id nullFlavor="NA" /> < code codeSystem="local" code="WBCU" displayName="UA WBC" /> < statusCode code="completed" /> <effectiveTime value="" /> <value unit="wbc/hpf" xsi:type="PQ" value="2-5" /> < referenceRange> <observationRange> <text>0 - 5</text> </observationRange> </referenceRange> </observation> </component> </organizer> </entry> <entry> <organizer moodCode="EVN " classCode="BATTERY"> <templateId root="12.02.840.1.513348.10..4.1" / > <id nullFlavor="NA" /> <code codeSystem="local" code="CBC" displayName="CBC" /> <statusCode code="completed" /> <component> <observation moodCode="EVN" classCode="OBS"> <templateId root= "12.02.840.1.997392...4.2" /> <id nullFlavor="NA" /> < code codeSystem="local" code="MCH" displayName="MEAN CELL HGB" /> < statusCode code="completed" /> <effectiveTime value="[id number]" /> <value unit="pg" xsi:type="PQ" value="29.3" /> <referenceRange > <observationRange> <text>27.0-33.0</text> < /observationRange> </referenceRange> </observation> </ component> <component> <observation moodCode="EVN" classCode="OBS"> <templateId root="216.840.1.977255.10.20.22.4.2" /> <id nullFlavor="NA" /> <code codeSystem="local" code="MCHC" displayName= "MEAN CELL HGB CONCENTRATION" /> <statusCode code="completed" /> <effectiveTime value="" /> <value unit="g/dL" xsi:type= "PQ" value="32.9" /> <referenceRange> <observationRange> <text>32.0-37.0</text> </observationRange> </ referenceRange> </observation> </component> <component> <observation moodCode="EVN" classCode="OBS"> <templateId root= "840.1.730033.10..4.2" /> <id nullFlavor="NA" /> < code codeSystem="local" code="MCV" displayName="MEAN CELL VOLUME" /> < statusCode code="completed" /> <effectiveTime value="" /> <value unit="fl" xsi:type="PQ" value="89.2" /> <referenceRange > <observationRange> <text>80.0-100.0</text> </observationRange> </referenceRange> </observation> </ component> <component> <observation moodCode="EVN" classCode="OBS"> <templateId root="12.02.840.1.594197.10.20.22.4.2" /> <id nullFlavor="NA" /> <code codeSystem="local" code="RBC" displayName=" RED BLOOD CELL" /> <statusCode code="completed" /> < effectiveTime value="" /> <value unit="m/cumm" xsi:type="PQ " value="3.34" /> <interpretationCode codeSystem="local" code="*" /> <referenceRange> <observationRange> <text>4.00- 6.00</text> </observationRange> </referenceRange> </ observation> </component> <component> <observation moodCode= "EVN" classCode="OBS"> <templateId root="2.16.840.1.915021.10..22.4.2 " /> <id nullFlavor="NA" /> <code codeSystem="local" code="RDW " displayName="RED CELL DISTRIBUTION WIDTH" /> <statusCode code= "completed" /> <effectiveTime value="" /> <value unit="%" xsi:type="PQ" value="14.4" /> <referenceRange> <observationRange> <text>11.0-15.6</text> </ observationRange> </referenceRange> </observation> </ component> <component> <observation moodCode="EVN" classCode="OBS"> <templateId root="2.16.840.1.424150.10..22.4.2" /> <id nullFlavor="NA" /> <code codeSystem="local" code="WBC" displayName= "WHITE BLOOD CELL" /> <statusCode code="completed" /> < effectiveTime value="" /> <value unit="k/cumm" xsi:type="PQ " value="9.9" /> <referenceRange> <observationRange> <text>5.0-10.0</text> </observationRange> </ referenceRange> </observation> </component> <component> <observation moodCode="EVN" classCode="OBS"> <templateId root= "216.840.1.544005.10...4.2" /> <id nullFlavor="NA" /> < code codeSystem="local" code="HGBT" displayName="HEMOGLOBIN" /> < statusCode code="completed" /> <effectiveTime value="" /> <value unit="gm/dL" xsi:type="PQ" value="9.8" /> < interpretationCode codeSystem="local" code="*" /> <referenceRange> <observationRange> <text>14.0-18.0</text> </ observationRange> </referenceRange> </observation> </ component> <component> <observation moodCode="EVN" classCode="OBS"> <templateId root="216.840.1.257258.08.05.22.4.2" /> <id nullFlavor="NA" /> <code codeSystem="local" code="HCTT" displayName= "HEMATOCRIT" /> <statusCode code="completed" /> < effectiveTime value="" /> <value unit="%" xsi:type="PQ " value="29.8" /> <interpretationCode codeSystem="local" code="*" /> <referenceRange> <observationRange> <text>40.0- 54.0</text> </observationRange> </referenceRange> </ observation> </component> <component> <observation moodCode= "EVN" classCode="OBS"> <templateId root="216.840.1.507472.10..22.4.2 " /> <id nullFlavor="NA" /> <code codeSystem="local" code="PLT " displayName="PLATELET COUNT" /> <statusCode code="completed" /> <effectiveTime value="" /> <value unit="k/cumm" xsi: type="PQ" value="179" /> <referenceRange> <observationRange > <text>150-450</text> </observationRange> </ referenceRange> </observation> </component> </organizer> </entry > <entry> <organizer moodCode="EVN" classCode="BATTERY"> <templateId root="12.02.840.1.675384.10..22.4.1" /> <id nullFlavor="NA" /> <code codeSystem="local" code="METAB" displayName="METABOLIC PANEL, BASIC" /> < statusCode code="completed" /> <component> <observation moodCode= "EVN" classCode="OBS"> <templateId root="12.02.840.1.750257.10...4.2 " /> <id nullFlavor="NA" /> <code codeSystem="local" code="K" displayName="POTASSIUM" /> <statusCode code="completed" /> < effectiveTime value="" /> <value unit="mmol/L" xsi:type="PQ " value="4.3" /> <referenceRange> <observationRange> <text>3.5-5.3</text> </observationRange> </ referenceRange> </observation> </component> <component> <observation moodCode="EVN" classCode="OBS"> <templateId root= "12.02.840.1.684169.10..22.4.2" /> <id nullFlavor="NA" /> < code codeSystem="local" code="eGFR" displayName="EST GFR (MDRD)" /> < statusCode code="completed" /> <effectiveTime value="" /> <value unit="mL/min" xsi:type="PQ" value="59" /> < interpretationCode codeSystem="local" code="*" /> <referenceRange> <observationRange> <text>> 59</text> </ observationRange> </referenceRange> </observation> </ component> <component> <observation moodCode="EVN" classCode="OBS"> <templateId root="12.02.840.1.611901.10...4.2" /> <id nullFlavor="NA" /> <code codeSystem="local" code="GAP" displayName= "ANION GAP" /> <statusCode code="completed" /> <effectiveTime value="808454073143" /> <value unit="mmol/L" xsi:type="PQ" value="12" / > <referenceRange> <observationRange> <text>5- 15</text> </observationRange> </referenceRange> </ observation> </component> <component> <observation moodCode= "EVN" classCode="OBS"> <templateId root="12.02.840.1.446279.10..4.2 " /> <id nullFlavor="NA" /> <code codeSystem="local" code= "eCrCl" displayName="EST CrCl (CG)" /> <statusCode code="completed" /> <effectiveTime value="465609911099" /> <value unit="mL/min" xsi:type="PQ" value="> 60" /> <referenceRange> < observationRange> <text>> 59</text> </ observationRange> </referenceRange> </observation> </ component> <component> <observation moodCode="EVN" classCode="OBS"> <templateId root="12.02.840.1.964829.10..22.4.2" /> <id nullFlavor="NA" /> <code codeSystem="local" code="GLU" displayName= "GLUCOSE" /> <statusCode code="completed" /> <effectiveTime value="517331504017" /> <value unit="mg/dL" xsi:type="PQ" value="114" / > <interpretationCode codeSystem="local" code="*" /> < referenceRange> <observationRange> <text>70-99</text> </observationRange> </referenceRange> </observation> </component> <component> <observation moodCode="EVN" classCode= "OBS"> <templateId root="216.840.1.463156.10.20.22.4.2" /> < id nullFlavor="NA" /> <code codeSystem="local" code="CA" displayName= "CALCIUM" /> <statusCode code="completed" /> <effectiveTime value="994874189086" /> <value unit="mg/dL" xsi:type="PQ" value="8.2" / > <interpretationCode codeSystem="local" code="*" /> < referenceRange> <observationRange> <text>8.5-10.1</text > </observationRange> </referenceRange> </observation > </component> <component> <observation moodCode="EVN" classCode="OBS"> <templateId root="216.840.1.538190.10.20.22.4.2" /> <id nullFlavor="NA" /> <code codeSystem="local" code="BUN" displayName="BLOOD UREA NITROGEN" /> <statusCode code="completed" /> <effectiveTime value="671510278576" /> <value unit="mg/dL" xsi: type="PQ" value="17" /> <referenceRange> <observationRange> <text>7-20</text> </observationRange> </ referenceRange> </observation> </component> <component> <observation moodCode="EVN" classCode="OBS"> <templateId root= "216.840.1.065632.10..22.4.2" /> <id nullFlavor="NA" /> < code codeSystem="local" code="CREAT" displayName="CREATININE" /> < statusCode code="completed" /> <effectiveTime value="" /> <value unit="mg/dL" xsi:type="PQ" value="1.2" /> < referenceRange> <observationRange> <text>0.7-1.3</text> </observationRange> </referenceRange> </observation > </component> <component> <observation moodCode="EVN" classCode="OBS"> <templateId root="216.840.1.964163.10..4.2" /> <id nullFlavor="NA" /> <code codeSystem="local" code="NA" displayName="SODIUM" /> <statusCode code="completed" /> < effectiveTime value="" /> <value unit="mmol/L" xsi:type="PQ " value="141" /> <referenceRange> <observationRange> <text>135-148</text> </observationRange> </ referenceRange> </observation> </component> <component> <observation moodCode="EVN" classCode="OBS"> <templateId root= "16.840.1.336667.10.22.4.2" /> <id nullFlavor="NA" /> < code codeSystem="local" code="CL" displayName="CHLORIDE" /> < statusCode code="completed" /> <effectiveTime value="" /> <value unit="mmol/L" xsi:type="PQ" value="106" /> < referenceRange> <observationRange> <text>98-110</text> </observationRange> </referenceRange> </observation> </component> <component> <observation moodCode="EVN" classCode ="OBS"> <templateId root="216.840.1.783716.10..22.4.2" /> < id nullFlavor="NA" /> <code codeSystem="local" code="CO2" displayName= "CARBON DIOXIDE" /> <statusCode code="completed" /> < effectiveTime value="203246378388" /> <value unit="mmol/L" xsi:type="PQ " value="23" /> <referenceRange> <observationRange> <text>21-32</text> </observationRange> </ referenceRange> </observation> </component> </organizer> </entry > <entry> <organizer moodCode="EVN" classCode="BATTERY"> <templateId root="216.840.1.072634.10..22.4.1" /> <id nullFlavor="NA" /> <code codeSystem="local" code="CBC" displayName="CBC" /> <statusCode code= "completed" /> <component> <observation moodCode="EVN" classCode= "OBS"> <templateId root="216.840.1.292904.10..22.4.2" /> < id nullFlavor="NA" /> <code codeSystem="local" code="MCH" displayName= "MEAN CELL HGB" /> <statusCode code="completed" /> < effectiveTime value="330458331353" /> <value unit="pg" xsi:type="PQ" value="29.8" /> <referenceRange> <observationRange> <text>27.0-33.0</text> </observationRange> </ referenceRange> </observation> </component> <component> <observation moodCode="EVN" classCode="OBS"> <templateId root= "2.16.840.1.939050.22.4.2" /> <id nullFlavor="NA" /> < code codeSystem="local" code="MCHC" displayName="MEAN CELL HGB CONCENTRATION" / > <statusCode code="completed" /> <effectiveTime value= "" /> <value unit="g/dL" xsi:type="PQ" value="33.3" /> <referenceRange> <observationRange> <text>32.0- 37.0</text> </observationRange> </referenceRange> </ observation> </component> <component> <observation moodCode= "EVN" classCode="OBS"> <templateId root="12.02.840.1.680634.08.05.22.4.2 " /> <id nullFlavor="NA" /> <code codeSystem="local" code="MCV " displayName="MEAN CELL VOLUME" /> <statusCode code="completed" /> <effectiveTime value="" /> <value unit="fl" xsi:type ="PQ" value="89.3" /> <referenceRange> <observationRange> <text>80.0-100.0</text> </observationRange> </ referenceRange> </observation> </component> <component> <observation moodCode="EVN" classCode="OBS"> <templateId root= "12.02.840.1.098863.10.4.2" /> <id nullFlavor="NA" /> < code codeSystem="local" code="RBC" displayName="RED BLOOD CELL" /> < statusCode code="completed" /> <effectiveTime value="470385379489" /> <value unit="m/cumm" xsi:type="PQ" value="3.19" /> < interpretationCode codeSystem="local" code="*" /> <referenceRange> <observationRange> <text>4.00-6.00</text> </ observationRange> </referenceRange> </observation> </ component> <component> <observation moodCode="EVN" classCode="OBS"> <templateId root="12.02.840.1.252881.10.20.22.4.2" /> <id nullFlavor="NA" /> <code codeSystem="local" code="RDW" displayName=" RED CELL DISTRIBUTION WIDTH" /> <statusCode code="completed" /> <effectiveTime value="633270394067" /> <value unit="%" xsi:type= "PQ" value="14.3" /> <referenceRange> <observationRange> <text>11.0-15.6</text> </observationRange> </ referenceRange> </observation> </component> <component> <observation moodCode="EVN" classCode="OBS"> <templateId root= "12.02.840.1.518872.10.22.4.2" /> <id nullFlavor="NA" /> < code codeSystem="local" code="WBC" displayName="WHITE BLOOD CELL" /> < statusCode code="completed" /> <effectiveTime value="929082497219" /> <value unit="k/cumm" xsi:type="PQ" value="11.3" /> < interpretationCode codeSystem="local" code="*" /> <referenceRange> <observationRange> <text>5.0-10.0</text> </ observationRange> </referenceRange> </observation> </ component> <component> <observation moodCode="EVN" classCode="OBS"> <templateId root="12.02.840.1.087960.10.20.22.4.2" /> <id nullFlavor="NA" /> <code codeSystem="local" code="HGBT" displayName= "HEMOGLOBIN" /> <statusCode code="completed" /> < effectiveTime value="911426910646" /> <value unit="gm/dL" xsi:type="PQ " value="9.5" /> <interpretationCode codeSystem="local" code="*" /> <referenceRange> <observationRange> <text>14.0- 18.0</text> </observationRange> </referenceRange> </ observation> </component> <component> <observation moodCode= "EVN" classCode="OBS"> <templateId root="2.16.840.1.366979.10.20.22.4.2 " /> <id nullFlavor="NA" /> <code codeSystem="local" code= "HCTT" displayName="HEMATOCRIT" /> <statusCode code="completed" /> <effectiveTime value="969091150527" /> <value unit="%" xsi: type="PQ" value="28.5" /> <interpretationCode codeSystem="local" code= "*" /> <referenceRange> <observationRange> < text>40.0-54.0</text> </observationRange> </referenceRange> </observation> </component> <component> <observation moodCode="EVN" classCode="OBS"> <templateId root= "2.16.840.1.788791.10.20.22.4.2" /> <id nullFlavor="NA" /> < code codeSystem="local" code="PLT" displayName="PLATELET COUNT" /> < statusCode code="completed" /> <effectiveTime value="170069740226" /> <value unit="k/cumm" xsi:type="PQ" value="176" /> < referenceRange> <observationRange> <text>150-450</text> </observationRange> </referenceRange> </observation > </component> </organizer> </entry> <entry> <organizer moodCode= "EVN" classCode="BATTERY"> <templateId root="2.16.840.1.385735.10...4.1 " /> <id nullFlavor="NA" /> <code codeSystem="local" code="ABG" displayName="ARTERIAL BLOOD GAS" /> <statusCode code="completed" /> < component> <observation moodCode="EVN" classCode="OBS"> < templateId root="16.840.1.454937...4.2" /> <id nullFlavor="NA " /> <code codeSystem="local" code="ABGCOM" displayName="COMMENT" /> <statusCode code="completed" /> <effectiveTime value= "709589041056" /> <value unit="" xsi:type="PQ" value="2L NC" /> <referenceRange> <observationRange> <text /> </observationRange> </referenceRange> </observation> </ component> <component> <observation moodCode="EVN" classCode="OBS"> <templateId root="16.840.1.763169.08.05.22.4.2" /> <id nullFlavor="NA" /> <code codeSystem="local" code="AMILCAR" displayName=" ABG BASE EXCESS" /> <statusCode code="completed" /> < effectiveTime value="059174432152" /> <value unit="meq/L" xsi:type="PQ " value="-2.8" /> <referenceRange> <observationRange> <text>-3.0-3.0</text> </observationRange> </ referenceRange> </observation> </component> <component> <observation moodCode="EVN" classCode="OBS"> <templateId root= "16.840.1.887432.08.05.22.4.2" /> <id nullFlavor="NA" /> < code codeSystem="local" code="HARLEY" displayName="ABG DEVICE" /> < statusCode code="completed" /> <effectiveTime value="" /> <value unit="" xsi:type="PQ" value="NC" /> <referenceRange> <observationRange> <text /> </observationRange > </referenceRange> </observation> </component> < component> <observation moodCode="EVN" classCode="OBS"> < templateId root="216.840.1.005357.08.05.22.4.2" /> <id nullFlavor="NA " /> <code codeSystem="local" code="FIO2A" displayName="ABG FIO2" /> <statusCode code="completed" /> <effectiveTime value= "" /> <value unit="%" xsi:type="PQ" value="0.28" /> <referenceRange> <observationRange> <text /> </observationRange> </referenceRange> </observation> </component> <component> <observation moodCode="EVN" classCode= "OBS"> <templateId root="216.840.1.846140.10.4.2" /> < id nullFlavor="NA" /> <code codeSystem="local" code="HCO3A" displayName ="ABG BICARBONATE" /> <statusCode code="completed" /> < effectiveTime value="" /> <value unit="meq/L" xsi:type="PQ " value="19.6" /> <interpretationCode codeSystem="local" code="*" /> <referenceRange> <observationRange> <text>23.0- 28.0</text> </observationRange> </referenceRange> </ observation> </component> <component> <observation moodCode= "EVN" classCode="OBS"> <templateId root="16.840.1.277095.10...4.2 " /> <id nullFlavor="NA" /> <code codeSystem="local" code= "MODEA" displayName="ABG VENT MODE" /> <statusCode code="completed" /> <effectiveTime value="" /> <value unit="" xsi: type="PQ" value="2L" /> <referenceRange> <observationRange> <text /> </observationRange> </referenceRange > </observation> </component> <component> <observation moodCode="EVN" classCode="OBS"> <templateId root= "16.840.1.405846.10...4.2" /> <id nullFlavor="NA" /> < code codeSystem="local" code="PCO2A" displayName="ABG PCO2" /> < statusCode code="completed" /> <effectiveTime value="" /> <value unit="mmHg" xsi:type="PQ" value="27" /> < interpretationCode codeSystem="local" code="*" /> <referenceRange> <observationRange> <text>34-45</text> </ observationRange> </referenceRange> </observation> </ component> <component> <observation moodCode="EVN" classCode="OBS"> <templateId root="12.02.840.1.744165.10..22.4.2" /> <id nullFlavor="NA" /> <code codeSystem="local" code="PHAX" displayName= "ABG PH" /> <statusCode code="completed" /> <effectiveTime value="[id number]" /> <value unit="" xsi:type="PQ" value="7.48" /> <interpretationCode codeSystem="local" code="*" /> < referenceRange> <observationRange> <text>7.35-7.45</text > </observationRange> </referenceRange> </observation > </component> <component> <observation moodCode="EVN" classCode="OBS"> <templateId root="16.840.1.390367.10.22.4.2" /> <id nullFlavor="NA" /> <code codeSystem="local" code="PO2A" displayName="ABG PO2" /> <statusCode code="completed" /> < effectiveTime value="" /> <value unit="mmHg" xsi:type="PQ" value="89" /> <referenceRange> <observationRange> <text>75-100</text> </observationRange> </referenceRange > </observation> </component> <component> <observation moodCode="EVN" classCode="OBS"> <templateId root= "12.02.840.1.622467.10.4.2" /> <id nullFlavor="NA" /> < code codeSystem="local" code="POSA" displayName="ABG PATIENT POSITION" /> <statusCode code="completed" /> <effectiveTime value=" " /> <value unit="" xsi:type="PQ" value="SF" /> < referenceRange> <observationRange> <text /> < /observationRange> </referenceRange> </observation> </ component> <component> <observation moodCode="EVN" classCode="OBS"> <templateId root="12.02.840.1.428536.1022.4.2" /> <id nullFlavor="NA" /> <code codeSystem="local" code="SATA" displayName= "ABG O2 SATURATION" /> <statusCode code="completed" /> < effectiveTime value="129091339190" /> <value unit="%" xsi:type="PQ " value="97" /> <referenceRange> <observationRange> <text>93-100</text> </observationRange> </ referenceRange> </observation> </component> <component> <observation moodCode="EVN" classCode="OBS"> <templateId root= "216.840.1.713574.10.4.2" /> <id nullFlavor="NA" /> < code codeSystem="local" code="SITEA" displayName="ABG SITE" /> < statusCode code="completed" /> <effectiveTime value="052246379964" /> <value unit="" xsi:type="PQ" value="RT BRACH" /> < referenceRange> <observationRange> <text /> < /observationRange> </referenceRange> </observation> </ component> </organizer> </entry> <entry> <organizer moodCode="EVN" classCode="BATTERY"> <templateId root="216.840.1.228677.10..4.1" /> <id nullFlavor="NA" /> <code codeSystem="local" code="MRSAS" displayName="MRSA SURVEILLANCE SCREEN" /> <statusCode code="completed" /> <component> <observation moodCode="EVN" classCode="OBS"> < templateId root="216.840.1.741012.10..4.2" /> <id nullFlavor="NA " /> <code codeSystem="local" code="MB" displayName="Microbiology" /> <statusCode code="completed" /> <effectiveTime value= "[id number]" /> <value xsi:type="ST" value="<pre><b>MRSA SURVEILLANCE SCREEN</b> See BelowMRSA SURVEILLANCE SCREEN(F) Ruma Date/Time: 11/29/2015 15:53 Viktoria Date/Time: // :SOURCE: ANTERIOR NARESSPEC DESC: See BelowMRSA SURVEILLANCE SCREEN(F) Ruma Date/Time : 11/29/2015 15:53 Viktoria Date/Time: 11/30/2015 14: 15SOURCE: ANTERIOR NARESSPEC DESC: NNO METHICILLIN RESISTANT STAPH [facility]UREUS [facility]ATEDST[facility] [place] [facility] [place] [address]</pre>" /> <referenceRange> <observationRange> <text /> </observationRange> </referenceRange> </observation> </ component> </organizer> </entry> <entry> <organizer moodCode="EVN" classCode="BATTERY"> <templateId root="2.16.840.1.311804.10.20.22.4.1" /> <id nullFlavor="NA" /> <code codeSystem="local" code="CBC" displayName ="CBC" /> <statusCode code="completed" /> <component> < observation moodCode="EVN" classCode="OBS"> <templateId root= "2.16.840.1.271387.10..22.4.2" /> <id nullFlavor="NA" /> < code codeSystem="local" code="MCH" displayName="MEAN CELL HGB" /> < statusCode code="completed" /> <effectiveTime value="565473078628" /> <value unit="pg" xsi:type="PQ" value="28.9" /> <referenceRange > <observationRange> <text>27.0-33.0</text> < /observationRange> </referenceRange> </observation> </ component> <component> <observation moodCode="EVN" classCode="OBS"> <templateId root="2.16.840.1.987258.10.20.22.4.2" /> <id nullFlavor="NA" /> <code codeSystem="local" code="MCHC" displayName= "MEAN CELL HGB CONCENTRATION" /> <statusCode code="completed" /> <effectiveTime value="" /> <value unit="g/dL" xsi:type= "PQ" value="32.7" /> <referenceRange> <observationRange> <text>32.0-37.0</text> </observationRange> </ referenceRange> </observation> </component> <component> <observation moodCode="EVN" classCode="OBS"> <templateId root= "16.840.1.654169.10.20.22.4.2" /> <id nullFlavor="NA" /> < code codeSystem="local" code="MCV" displayName="MEAN CELL VOLUME" /> < statusCode code="completed" /> <effectiveTime value="" /> <value unit="fl" xsi:type="PQ" value="88.2" /> <referenceRange > <observationRange> <text>80.0-100.0</text> </observationRange> </referenceRange> </observation> </ component> <component> <observation moodCode="EVN" classCode="OBS"> <templateId root="16.840.1.551124.10.20.22.4.2" /> <id nullFlavor="NA" /> <code codeSystem="local" code="RBC" displayName=" RED BLOOD CELL" /> <statusCode code="completed" /> < effectiveTime value="" /> <value unit="m/cumm" xsi:type="PQ " value="3.57" /> <interpretationCode codeSystem="local" code="*" /> <referenceRange> <observationRange> <text>4.00- 6.00</text> </observationRange> </referenceRange> </ observation> </component> <component> <observation moodCode= "EVN" classCode="OBS"> <templateId root="12.02.840.1.746675.10.2022.4.2 " /> <id nullFlavor="NA" /> <code codeSystem="local" code="RDW " displayName="RED CELL DISTRIBUTION WIDTH" /> <statusCode code= "completed" /> <effectiveTime value="" /> <value unit="%" xsi:type="PQ" value="15.0" /> <referenceRange> <observationRange> <text>11.0-15.6</text> </ observationRange> </referenceRange> </observation> </ component> <component> <observation moodCode="EVN" classCode="OBS"> <templateId root="12.02.840.1.894771.1022.4.2" /> <id nullFlavor="NA" /> <code codeSystem="local" code="WBC" displayName= "WHITE BLOOD CELL" /> <statusCode code="completed" /> < effectiveTime value="" /> <value unit="k/cumm" xsi:type="PQ " value="7.9" /> <referenceRange> <observationRange> <text>5.0-10.0</text> </observationRange> </ referenceRange> </observation> </component> <component> <observation moodCode="EVN" classCode="OBS"> <templateId root= "12.02.840.1.870380.10.2022.4.2" /> <id nullFlavor="NA" /> < code codeSystem="local" code="HGBT" displayName="HEMOGLOBIN" /> < statusCode code="completed" /> <effectiveTime value="281253068482" /> <value unit="gm/dL" xsi:type="PQ" value="10.3" /> < interpretationCode codeSystem="local" code="*" /> <referenceRange> <observationRange> <text>14.0-18.0</text> </ observationRange> </referenceRange> </observation> </ component> <component> <observation moodCode="EVN" classCode="OBS"> <templateId root="216.840.1.681608.10...4.2" /> <id nullFlavor="NA" /> <code codeSystem="local" code="HCTT" displayName= "HEMATOCRIT" /> <statusCode code="completed" /> < effectiveTime value="534888317495" /> <value unit="%" xsi:type="PQ " value="31.5" /> <interpretationCode codeSystem="local" code="*" /> <referenceRange> <observationRange> <text>40.0- 54.0</text> </observationRange> </referenceRange> </ observation> </component> <component> <observation moodCode= "EVN" classCode="OBS"> <templateId root="216.840.1.562495.10...4.2 " /> <id nullFlavor="NA" /> <code codeSystem="local" code="PLT " displayName="PLATELET COUNT" /> <statusCode code="completed" /> <effectiveTime value="" /> <value unit="k/cumm" xsi: type="PQ" value="466" /> <interpretationCode codeSystem="local" code="* " /> <referenceRange> <observationRange> <text> 150-450</text> </observationRange> </referenceRange> </observation> </component> </organizer> </entry> <entry> < organizer moodCode="EVN" classCode="BATTERY"> <templateId root= "216.840.1.245116.10..22.4.1" /> <id nullFlavor="NA" /> <code codeSystem="local" code="METAB" displayName="METABOLIC PANEL, BASIC" /> < statusCode code="completed" /> <component> <observation moodCode= "EVN" classCode="OBS"> <templateId root="12.02.840.1.419667.10...4.2 " /> <id nullFlavor="NA" /> <code codeSystem="local" code="K" displayName="POTASSIUM" /> <statusCode code="completed" /> < effectiveTime value="" /> <value unit="mmol/L" xsi:type="PQ " value="3.7" /> <referenceRange> <observationRange> <text>3.5-5.3</text> </observationRange> </ referenceRange> </observation> </component> <component> <observation moodCode="EVN" classCode="OBS"> <templateId root= "840.1.405358.08.05.22.4.2" /> <id nullFlavor="NA" /> < code codeSystem="local" code="eGFR" displayName="EST GFR (MDRD)" /> < statusCode code="completed" /> <effectiveTime value="" /> <value unit="mL/min" xsi:type="PQ" value="49" /> < interpretationCode codeSystem="local" code="*" /> <referenceRange> <observationRange> <text>> 59</text> </ observationRange> </referenceRange> </observation> </ component> <component> <observation moodCode="EVN" classCode="OBS"> <templateId root="12.02.840.1.062890.10.22.4.2" /> <id nullFlavor="NA" /> <code codeSystem="local" code="GAP" displayName= "ANION GAP" /> <statusCode code="completed" /> <effectiveTime value="" /> <value unit="mmol/L" xsi:type="PQ" value="11" / > <referenceRange> <observationRange> <text>5- 15</text> </observationRange> </referenceRange> </ observation> </component> <component> <observation moodCode= "EVN" classCode="OBS"> <templateId root="216.840.1.763114.10.20.22.4.2 " /> <id nullFlavor="NA" /> <code codeSystem="local" code= "eCrCl" displayName="EST CrCl (CG)" /> <statusCode code="completed" /> <effectiveTime value="" /> <value unit="mL/min" xsi:type="PQ" value="51" /> <interpretationCode codeSystem="local" code ="*" /> <referenceRange> <observationRange> < text>> 59</text> </observationRange> </referenceRange> </observation> </component> <component> <observation moodCode="EVN" classCode="OBS"> <templateId root= "216.840.1.420450.10.20.22.4.2" /> <id nullFlavor="NA" /> < code codeSystem="local" code="GLU" displayName="GLUCOSE" /> < statusCode code="completed" /> <effectiveTime value="" /> <value unit="mg/dL" xsi:type="PQ" value="139" /> < interpretationCode codeSystem="local" code="*" /> <referenceRange> <observationRange> <text>70-99</text> </ observationRange> </referenceRange> </observation> </ component> <component> <observation moodCode="EVN" classCode="OBS"> <templateId root="16.840.1.369606.10.20.22.4.2" /> <id nullFlavor="NA" /> <code codeSystem="local" code="CA" displayName= "CALCIUM" /> <statusCode code="completed" /> <effectiveTime value="" /> <value unit="mg/dL" xsi:type="PQ" value="8.7" / > <referenceRange> <observationRange> <text>8.5 -10.1</text> </observationRange> </referenceRange> </ observation> </component> <component> <observation moodCode= "EVN" classCode="OBS"> <templateId root="16.840.1.153384.10.22.4.2 " /> <id nullFlavor="NA" /> <code codeSystem="local" code="BUN " displayName="BLOOD UREA NITROGEN" /> <statusCode code="completed" /> <effectiveTime value="" /> <value unit="mg/dL" xsi:type="PQ" value="21" /> <interpretationCode codeSystem="local" code ="*" /> <referenceRange> <observationRange> < text>7-20</text> </observationRange> </referenceRange> </observation> </component> <component> <observation moodCode="EVN" classCode="OBS"> <templateId root= "12.02.840.1.959762.10..22.4.2" /> <id nullFlavor="NA" /> < code codeSystem="local" code="CREAT" displayName="CREATININE" /> < statusCode code="completed" /> <effectiveTime value="" /> <value unit="mg/dL" xsi:type="PQ" value="1.4" /> < interpretationCode codeSystem="local" code="*" /> <referenceRange> <observationRange> <text>0.7-1.3</text> </ observationRange> </referenceRange> </observation> </ component> <component> <observation moodCode="EVN" classCode="OBS"> <templateId root="216.840.1.412381.10..22.4.2" /> <id nullFlavor="NA" /> <code codeSystem="local" code="NA" displayName= "SODIUM" /> <statusCode code="completed" /> <effectiveTime value="" /> <value unit="mmol/L" xsi:type="PQ" value="140" /> <referenceRange> <observationRange> <text> 135-148</text> </observationRange> </referenceRange> </observation> </component> <component> <observation moodCode= "EVN" classCode="OBS"> <templateId root="12.02.840.1.171027.10..4.2 " /> <id nullFlavor="NA" /> <code codeSystem="local" code="CL " displayName="CHLORIDE" /> <statusCode code="completed" /> < effectiveTime value="" /> <value unit="mmol/L" xsi:type="PQ " value="109" /> <referenceRange> <observationRange> <text>98-110</text> </observationRange> </ referenceRange> </observation> </component> <component> <observation moodCode="EVN" classCode="OBS"> <templateId root= "12.02.840.1.115588.10.22.4.2" /> <id nullFlavor="NA" /> < code codeSystem="local" code="CO2" displayName="CARBON DIOXIDE" /> < statusCode code="completed" /> <effectiveTime value="" /> <value unit="mmol/L" xsi:type="PQ" value="20" /> < interpretationCode codeSystem="local" code="*" /> <referenceRange> <observationRange> <text>21-32</text> </ observationRange> </referenceRange> </observation> </ component> </organizer> </entry> <entry> <organizer moodCode="EVN" classCode="BATTERY"> <templateId root="216.840.1.899912.10..22.4.1" /> <id nullFlavor="NA" /> <code codeSystem="local" code="PHOS" displayName="PHOSPHORUS" /> <statusCode code="completed" /> <component > <observation moodCode="EVN" classCode="OBS"> <templateId root= "216.840.1.634760.10..22.4.2" /> <id nullFlavor="NA" /> < code codeSystem="local" code="PHOS" displayName="PHOSPHORUS" /> < statusCode code="completed" /> <effectiveTime value="" /> <value unit="mg/dL" xsi:type="PQ" value="3.0" /> < referenceRange> <observationRange> <text>2.5-4.9</text> </observationRange> </referenceRange> </observation > </component> </organizer> </entry> <entry> <organizer moodCode= "EVN" classCode="BATTERY"> <templateId root="216.840.1.306738.10..22.4.1 " /> <id nullFlavor="NA" /> <code codeSystem="local" code="CK" displayName="CREATINE KINASE (CK/CPK)" /> <statusCode code="completed" /> <component> <observation moodCode="EVN" classCode="OBS"> < templateId root="16.840.1.210731.10..22.4.2" /> <id nullFlavor="NA " /> <code codeSystem="local" code="CK" displayName="CREATINE KINASE ( CK/CPK)" /> <statusCode code="completed" /> <effectiveTime value="" /> <value unit="Units/L" xsi:type="PQ" value="53" /> <referenceRange> <observationRange> <text>& lt; 309</text> </observationRange> </referenceRange> </observation> </component> </organizer> </entry> <entry> < organizer moodCode="EVN" classCode="BATTERY"> <templateId root= "216.840.1.895622.10..22.4.1" /> <id nullFlavor="NA" /> <code codeSystem="local" code="MAG" displayName="MAGNESIUM" /> <statusCode code= "completed" /> <component> <observation moodCode="EVN" classCode= "OBS"> <templateId root="216.840.1.597265.10..22.4.2" /> < id nullFlavor="NA" /> <code codeSystem="local" code="MAG" displayName= "MAGNESIUM" /> <statusCode code="completed" /> <effectiveTime value="" /> <value unit="mg/dL" xsi:type="PQ" value="1.9" / > <referenceRange> <observationRange> <text>1.8 -2.4</text> </observationRange> </referenceRange> </ observation> </component> </organizer> </entry> <entry> <organizer moodCode="EVN" classCode="BATTERY"> <templateId root= "2840.1.717337.08.05.22.4.1" /> <id nullFlavor="NA" /> <code codeSystem="local" code="CRP" displayName="C REACTIVE PROTEIN" /> < statusCode code="completed" /> <component> <observation moodCode= "EVN" classCode="OBS"> <templateId root="840.1.398812.08.05.22.4.2 " /> <id nullFlavor="NA" /> <code codeSystem="local" code="CRP " displayName="C REACTIVE PROTEIN" /> <statusCode code="completed" /> <effectiveTime value="951544929811" /> <value unit="mg/dL" xsi :type="PQ" value="6.0" /> <interpretationCode codeSystem="local" code= "*" /> <referenceRange> <observationRange> < text>0.00-0.90</text> </observationRange> </referenceRange> </observation> </component> </organizer> </entry> <entry> < organizer moodCode="EVN" classCode="BATTERY"> <templateId root= "840.1.657560.08.05.22.4.1" /> <id nullFlavor="NA" /> <code codeSystem="local" code="SEDWES" displayName="SED RATE WESTERGREN" /> < statusCode code="completed" /> <component> <observation moodCode= "EVN" classCode="OBS"> <templateId root="12.02.840.1.114807.08.05.22.4.2 " /> <id nullFlavor="NA" /> <code codeSystem="local" code= "SEDWES" displayName="SED RATE WESTERGREN" /> <statusCode code= "completed" /> <effectiveTime value="003467812188" /> <value unit="mm/hr" xsi:type="PQ" value="86" /> <interpretationCode codeSystem ="local" code="*" /> <referenceRange> <observationRange> <text>0-20</text> </observationRange> </ referenceRange> </observation> </component> </organizer> </entry > <entry> <organizer moodCode="EVN" classCode="BATTERY"> <templateId root="12.02.840.1.565468.10.22.4.1" /> <id nullFlavor="NA" /> <code codeSystem="local" code="VBG" displayName="VENOUS BLOOD GAS" /> < statusCode code="completed" /> <component> <observation moodCode= "EVN" classCode="OBS"> <templateId root="16.840.1.674918.10..4.2 " /> <id nullFlavor="NA" /> <code codeSystem="local" code="ELMIRA " displayName="VBG BASE EXCESS" /> <statusCode code="completed" /> <effectiveTime value="" /> <value unit="mEq/L" xsi: type="PQ" value="-2.1" /> <referenceRange> <observationRange > <text>-3.0-3.0</text> </observationRange> </ referenceRange> </observation> </component> <component> <observation moodCode="EVN" classCode="OBS"> <templateId root= "12.02.840.1.289383.10.22.4.2" /> <id nullFlavor="NA" /> < code codeSystem="local" code="HCO3V" displayName="VBG BICARBONATE" /> < statusCode code="completed" /> <effectiveTime value="689507189537" /> <value unit="meq/L" xsi:type="PQ" value="21.0" /> < referenceRange> <observationRange> <text>21-30</text> </observationRange> </referenceRange> </observation> </component> <component> <observation moodCode="EVN" classCode= "OBS"> <templateId root="12.02.840.1.779040.10.20.22.4.2" /> < id nullFlavor="NA" /> <code codeSystem="local" code="PCO2V" displayName ="VBG PCO2" /> <statusCode code="completed" /> <effectiveTime value="" /> <value unit="mmHg" xsi:type="PQ" value="31" /> <interpretationCode codeSystem="local" code="*" /> < referenceRange> <observationRange> <text>41-51</text> </observationRange> </referenceRange> </observation> </component> <component> <observation moodCode="EVN" classCode= "OBS"> <templateId root="12.02.840.1.355044.10..22.4.2" /> < id nullFlavor="NA" /> <code codeSystem="local" code="PHV" displayName= "VBG PH" /> <statusCode code="completed" /> <effectiveTime value="" /> <value unit="" xsi:type="PQ" value="7.46" /> <interpretationCode codeSystem="local" code="*" /> < referenceRange> <observationRange> <text>7.33-7.43</text > </observationRange> </referenceRange> </observation > </component> <component> <observation moodCode="EVN" classCode="OBS"> <templateId root="12.02.840.1.892934.10.20.22.4.2" /> <id nullFlavor="NA" /> <code codeSystem="local" code="PO2V" displayName="VBG PO2" /> <statusCode code="completed" /> < effectiveTime value="679627865284" /> <value unit="mmHg" xsi:type="PQ" value="60" /> <interpretationCode codeSystem="local" code="*" /> <referenceRange> <observationRange> <text>35-40</ text> </observationRange> </referenceRange> </ observation> </component> <component> <observation moodCode= "EVN" classCode="OBS"> <templateId root="2.16.840.1.436583.10.20.22.4.2 " /> <id nullFlavor="NA" /> <code codeSystem="local" code= "SATV" displayName="VBG O2 SATURATION" /> <statusCode code="completed" /> <effectiveTime value="660658034468" /> <value unit="%" xsi:type="PQ" value="90" /> <interpretationCode codeSystem="local" code ="*" /> <referenceRange> <observationRange> < text>65-75</text> </observationRange> </referenceRange> </observation> </component> <component> <observation moodCode="EVN" classCode="OBS"> <templateId root= "2.16.840.1.640766.10..22.4.2" /> <id nullFlavor="NA" /> < code codeSystem="local" code="VBGCOM" displayName="COMMENT" /> < statusCode code="completed" /> <effectiveTime value="268963069043" /> <value unit="" xsi:type="PQ" value="2L" /> <referenceRange> <observationRange> <text /> </observationRange > </referenceRange> </observation> </component> </ organizer> </entry> <entry> <organizer moodCode="EVN" classCode="BATTERY"> <templateId root="2.16.840.1.186886.10..22.4.1" /> <id nullFlavor= "NA" /> <code codeSystem="local" code="BC" displayName="BLOOD CULTURE" /> <statusCode code="completed" /> <component> <observation moodCode="EVN" classCode="OBS"> <templateId root= "2.16.840.1.083084.10..22.4.2" /> <id nullFlavor="NA" /> < code codeSystem="local" code="MB" displayName="Microbiology" /> < statusCode code="completed" /> <effectiveTime value="367536674049" /> <value xsi:type="ST" value="<pre><b>BLOOD CULTURE</b> See BelowBLOOD CULTURE(F) Ruma Date/Time: 11/30/2015 10:37 Viktoria Date/Time: // :SOURCE: BLOODSPEC DESC: PERIPHERALSee BelowIs this the first BLOOD CULTURE or a possible SEPSIS patient? N: [id number] CULTURE(F ) Ruma Date/Time: 11/30/2015 10:37 Viktoria Date/Time: 12/05/2015 20:53SOURCE: BLOODSPEC DESC: [id number] [facility] [place] [address]</pre>" / > <referenceRange> <observationRange> <text /> </observationRange> </referenceRange> </observation > </component> </organizer> </entry> <entry> <organizer moodCode= "EVN" classCode="BATTERY"> <templateId root="2.16.840.1.861138.10..22.4.1 " /> <id nullFlavor="NA" /> <code codeSystem="local" code="BC" displayName="BLOOD CULTURE" /> <statusCode code="completed" /> < component> <observation moodCode="EVN" classCode="OBS"> < templateId root="216.840.1.404701.10.4.2" /> <id nullFlavor="NA " /> <code codeSystem="local" code="MB" displayName="Microbiology" /> <statusCode code="completed" /> <effectiveTime value= "242662519908" /> <value xsi:type="ST" value="<pre><b>BLOOD CULTURE</b > See BelowBLOOD CULTURE(F) Ruma Date/Time: 11/30/2015 10:48 Viktoria Date/Time: // :SOURCE: BLOODSPEC DESC: PERIPHERALSee BelowIs this the first BLOOD CULTURE or a possible SEPSIS patient ? N: [id number] CULTURE(F) Ruma Date/Time: 11/30/2015 10:48 Viktoria Date/Time: 12/05/2015 20:53SOURCE: BLOODSPEC DESC : [id number] [facility] [place] [address]</pre>" /> <referenceRange> <observationRange> <text /> </observationRange> </referenceRange> </observation> </component> </organizer> </entry> <entry> < organizer moodCode="EVN" classCode="BATTERY"> <templateId root= "216.840.1.707269.10.4.1" /> <id nullFlavor="NA" /> <code codeSystem="local" code="CBC" displayName="CBC" /> <statusCode code= "completed" /> <component> <observation moodCode="EVN" classCode= "OBS"> <templateId root="2.16.840.1.140773.10.4.2" /> < id nullFlavor="NA" /> <code codeSystem="local" code="MCH" displayName= "MEAN CELL HGB" /> <statusCode code="completed" /> < effectiveTime value="" /> <value unit="pg" xsi:type="PQ" value="28.9" /> <referenceRange> <observationRange> <text>27.0-33.0</text> </observationRange> </ referenceRange> </observation> </component> <component> <observation moodCode="EVN" classCode="OBS"> <templateId root= "216.840.1.380372.10.20.22.4.2" /> <id nullFlavor="NA" /> < code codeSystem="local" code="[facility]" displayName="MEAN CELL HGB CONCENTRATION" / > <statusCode code="completed" /> <effectiveTime value= "" /> <value unit="g/dL" xsi:type="PQ" value="32.9" /> <referenceRange> <observationRange> <text>32.0- 37.0</text> </observationRange> </referenceRange> </ observation> </component> <component> <observation moodCode= "EVN" classCode="OBS"> <templateId root="216.840.1.030517.10.22.4.2 " /> <id nullFlavor="NA" /> <code codeSystem="local" code="MCV " displayName="MEAN CELL VOLUME" /> <statusCode code="completed" /> <effectiveTime value="" /> <value unit="fl" xsi:type ="PQ" value="87.8" /> <referenceRange> <observationRange> <text>80.0-100.0</text> </observationRange> </ referenceRange> </observation> </component> <component> <observation moodCode="EVN" classCode="OBS"> <templateId root= "216.840.1.830052.10.20.22.4.2" /> <id nullFlavor="NA" /> < code codeSystem="local" code="RBC" displayName="RED BLOOD CELL" /> < statusCode code="completed" /> <effectiveTime value="" /> <value unit="m/cumm" xsi:type="PQ" value="3.53" /> < interpretationCode codeSystem="local" code="*" /> <referenceRange> <observationRange> <text>4.00-6.00</text> </ observationRange> </referenceRange> </observation> </ component> <component> <observation moodCode="EVN" classCode="OBS"> <templateId root="2.16.840.1.614106...4.2" /> <id nullFlavor="NA" /> <code codeSystem="local" code="RDW" displayName=" RED CELL DISTRIBUTION WIDTH" /> <statusCode code="completed" /> <effectiveTime value="" /> <value unit="%" xsi:type= "PQ" value="14.9" /> <referenceRange> <observationRange> <text>11.0-15.6</text> </observationRange> </ referenceRange> </observation> </component> <component> <observation moodCode="EVN" classCode="OBS"> <templateId root= "2.16.840.1.199644.22.4.2" /> <id nullFlavor="NA" /> < code codeSystem="local" code="WBC" displayName="WHITE BLOOD CELL" /> < statusCode code="completed" /> <effectiveTime value="" /> <value unit="k/cumm" xsi:type="PQ" value="8.9" /> < referenceRange> <observationRange> <text>5.0-10.0</text > </observationRange> </referenceRange> </observation > </component> <component> <observation moodCode="EVN" classCode="OBS"> <templateId root="216.840.1.265339.08.05.22.4.2" /> <id nullFlavor="NA" /> <code codeSystem="local" code="HGBT" displayName="HEMOGLOBIN" /> <statusCode code="completed" /> < effectiveTime value="" /> <value unit="gm/dL" xsi:type="PQ " value="10.2" /> <interpretationCode codeSystem="local" code="*" /> <referenceRange> <observationRange> <text>14.0- 18.0</text> </observationRange> </referenceRange> </ observation> </component> <component> <observation moodCode= "EVN" classCode="OBS"> <templateId root="2.840.1.293273.08.05.224.2 " /> <id nullFlavor="NA" /> <code codeSystem="local" code= "HCTT" displayName="HEMATOCRIT" /> <statusCode code="completed" /> <effectiveTime value="[id number]" /> <value unit="%" xsi: type="PQ" value="31.0" /> <interpretationCode codeSystem="local" code= "*" /> <referenceRange> <observationRange> < text>40.0-54.0</text> </observationRange> </referenceRange> </observation> </component> <component> <observation moodCode="EVN" classCode="OBS"> <templateId root= "216.840.1.128832.1022.4.2" /> <id nullFlavor="NA" /> < code codeSystem="local" code="PLT" displayName="PLATELET COUNT" /> < statusCode code="completed" /> <effectiveTime value="[id number]" /> <value unit="k/cumm" xsi:type="PQ" value="478" /> < interpretationCode codeSystem="local" code="*" /> <referenceRange> <observationRange> <text>150-450</text> </ observationRange> </referenceRange> </observation> </ component> </organizer> </entry> <entry> <organizer moodCode="EVN" classCode="BATTERY"> <templateId root="16.840.1.625724.10..22.4.1" /> <id nullFlavor="NA" /> <code codeSystem="local" code="METAB" displayName="METABOLIC PANEL, BASIC" /> <statusCode code="completed" /> <component> <observation moodCode="EVN" classCode="OBS"> < templateId root="16.840.1.709569.10...4.2" /> <id nullFlavor="NA " /> <code codeSystem="local" code="K" displayName="POTASSIUM" /> <statusCode code="completed" /> <effectiveTime value="[id number] " /> <value unit="mmol/L" xsi:type="PQ" value="3.8" /> < referenceRange> <observationRange> <text>3.5-5.3</text> </observationRange> </referenceRange> </observation > </component> <component> <observation moodCode="EVN" classCode="OBS"> <templateId root="16.840.1.421715.10...4.2" /> <id nullFlavor="NA" /> <code codeSystem="local" code="eGFR" displayName="EST GFR (MDRD)" /> <statusCode code="completed" /> <effectiveTime value="" /> <value unit="mL/min" xsi:type ="PQ" value="53" /> <interpretationCode codeSystem="local" code="*" /> <referenceRange> <observationRange> <text>&gt ; 59</text> </observationRange> </referenceRange> </ observation> </component> <component> <observation moodCode= "EVN" classCode="OBS"> <templateId root="216.840.1.942993.10...4.2 " /> <id nullFlavor="NA" /> <code codeSystem="local" code="GAP " displayName="ANION GAP" /> <statusCode code="completed" /> < effectiveTime value="" /> <value unit="mmol/L" xsi:type="PQ " value="11" /> <referenceRange> <observationRange> <text>5-15</text> </observationRange> </referenceRange > </observation> </component> <component> <observation moodCode="EVN" classCode="OBS"> <templateId root= "216.840.1.444886.10...4.2" /> <id nullFlavor="NA" /> < code codeSystem="local" code="eCrCl" displayName="EST CrCl (CG)" /> < statusCode code="completed" /> <effectiveTime value="" /> <value unit="mL/min" xsi:type="PQ" value="55" /> < interpretationCode codeSystem="local" code="*" /> <referenceRange> <observationRange> <text>> 59</text> </ observationRange> </referenceRange> </observation> </ component> <component> <observation moodCode="EVN" classCode="OBS"> <templateId root="216.840.1.706252.10...4.2" /> <id nullFlavor="NA" /> <code codeSystem="local" code="GLU" displayName= "GLUCOSE" /> <statusCode code="completed" /> <effectiveTime value="" /> <value unit="mg/dL" xsi:type="PQ" value="95" / > <referenceRange> <observationRange> <text>70- 99</text> </observationRange> </referenceRange> </ observation> </component> <component> <observation moodCode= "EVN" classCode="OBS"> <templateId root="2.16.840.1.880896.10...4.2 " /> <id nullFlavor="NA" /> <code codeSystem="local" code="CA " displayName="CALCIUM" /> <statusCode code="completed" /> < effectiveTime value="" /> <value unit="mg/dL" xsi:type="PQ " value="8.8" /> <referenceRange> <observationRange> <text>8.5-10.1</text> </observationRange> </ referenceRange> </observation> </component> <component> <observation moodCode="EVN" classCode="OBS"> <templateId root= "216.840.1.741505.10...4.2" /> <id nullFlavor="NA" /> < code codeSystem="local" code="BUN" displayName="BLOOD UREA NITROGEN" /> <statusCode code="completed" /> <effectiveTime value="" / > <value unit="mg/dL" xsi:type="PQ" value="27" /> < interpretationCode codeSystem="local" code="*" /> <referenceRange> <observationRange> <text>7-20</text> </ observationRange> </referenceRange> </observation> </ component> <component> <observation moodCode="EVN" classCode="OBS"> <templateId root="216.840.1.557218.10.20.22.4.2" /> <id nullFlavor="NA" /> <code codeSystem="local" code="CREAT" displayName= "CREATININE" /> <statusCode code="completed" /> < effectiveTime value="" /> <value unit="mg/dL" xsi:type="PQ " value="1.3" /> <referenceRange> <observationRange> <text>0.7-1.3</text> </observationRange> </ referenceRange> </observation> </component> <component> <observation moodCode="EVN" classCode="OBS"> <templateId root= "216.840.1.966080.10..22.4.2" /> <id nullFlavor="NA" /> < code codeSystem="local" code="NA" displayName="SODIUM" /> <statusCode code="completed" /> <effectiveTime value="" /> < value unit="mmol/L" xsi:type="PQ" value="140" /> <referenceRange> <observationRange> <text>135-148</text> </ observationRange> </referenceRange> </observation> </ component> <component> <observation moodCode="EVN" classCode="OBS"> <templateId root="16.840.1.990469.10.20.22.4.2" /> <id nullFlavor="NA" /> <code codeSystem="local" code="CL" displayName= "CHLORIDE" /> <statusCode code="completed" /> <effectiveTime value="661509055707" /> <value unit="mmol/L" xsi:type="PQ" value="108" /> <referenceRange> <observationRange> <text>98 -110</text> </observationRange> </referenceRange> </ observation> </component> <component> <observation moodCode= "EVN" classCode="OBS"> <templateId root="2.16.840.1.957382.10...4.2 " /> <id nullFlavor="NA" /> <code codeSystem="local" code="CO2 " displayName="CARBON DIOXIDE" /> <statusCode code="completed" /> <effectiveTime value="" /> <value unit="mmol/L" xsi: type="PQ" value="21" /> <referenceRange> <observationRange> <text>21-32</text> </observationRange> </ referenceRange> </observation> </component> </organizer> </entry > <entry> <organizer moodCode="EVN" classCode="BATTERY"> <templateId root="2.16.840.1.719583.10..22.4.1" /> <id nullFlavor="NA" /> <code codeSystem="local" code="PHOS" displayName="PHOSPHORUS" /> <statusCode code ="completed" /> <component> <observation moodCode="EVN" classCode= "OBS"> <templateId root="2.16.840.1.712777.10..22.4.2" /> < id nullFlavor="NA" /> <code codeSystem="local" code="PHOS" displayName= "PHOSPHORUS" /> <statusCode code="completed" /> < effectiveTime value="" /> <value unit="mg/dL" xsi:type="PQ " value="3.1" /> <referenceRange> <observationRange> <text>2.5-4.9</text> </observationRange> </ referenceRange> </observation> </component> </organizer> </entry > <entry> <organizer moodCode="EVN" classCode="BATTERY"> <templateId root="840.1.336234.22.4.1" /> <id nullFlavor="NA" /> <code codeSystem="local" code="MAG" displayName="MAGNESIUM" /> <statusCode code= "completed" /> <component> <observation moodCode="EVN" classCode= "OBS"> <templateId root="840.1.529971.08.05.22.4.2" /> < id nullFlavor="NA" /> <code codeSystem="local" code="MAG" displayName= "MAGNESIUM" /> <statusCode code="completed" /> <effectiveTime value="" /> <value unit="mg/dL" xsi:type="PQ" value="1.8" / > <referenceRange> <observationRange> <text>1.8 -2.4</text> </observationRange> </referenceRange> </ observation> </component> </organizer> </entry> <entry> <organizer moodCode="EVN" classCode="BATTERY"> <templateId root= "840.1.517331.08.05.22.4.1" /> <id nullFlavor="NA" /> <code codeSystem="local" code="NESTOR" displayName="FERRITIN" /> <statusCode code= "completed" /> <component> <observation moodCode="EVN" classCode= "OBS"> <templateId root="840.1.968634.22.4.2" /> < id nullFlavor="NA" /> <code codeSystem="local" code="NESTOR" displayName= "FERRITIN" /> <statusCode code="completed" /> <effectiveTime value="438022944876" /> <value unit="ng/mL" xsi:type="PQ" value="175" / > <referenceRange> <observationRange> <text>26- 388</text> </observationRange> </referenceRange> </ observation> </component> </organizer> </entry> <entry> <organizer moodCode="EVN" classCode="BATTERY"> <templateId root= "12.02.840.1.229326.10..22.4.1" /> <id nullFlavor="NA" /> <code codeSystem="local" code="FETIBC" displayName="IRON W/ BINDING CAPACITY" /> <statusCode code="completed" /> <component> <observation moodCode= "EVN" classCode="OBS"> <templateId root="12.02.840.1.284785.10..22.4.2 " /> <id nullFlavor="NA" /> <code codeSystem="local" code= "FESAT" displayName="IRON SATURATION" /> <statusCode code="completed" / > <effectiveTime value="" /> <value unit="%SAT " xsi:type="PQ" value="13" /> <referenceRange> < observationRange> <text>11-46</text> </observationRange > </referenceRange> </observation> </component> < component> <observation moodCode="EVN" classCode="OBS"> < templateId root="12.02.840.1.510819.1022.4.2" /> <id nullFlavor="NA " /> <code codeSystem="local" code="TIBC" displayName="IRON BINDING CAPACITY, TOTAL" /> <statusCode code="completed" /> < effectiveTime value="" /> <value unit="mcg/dL" xsi:type="PQ " value="229" /> <interpretationCode codeSystem="local" code="*" /> <referenceRange> <observationRange> <text>250-450 </text> </observationRange> </referenceRange> </ observation> </component> <component> <observation moodCode= "EVN" classCode="OBS"> <templateId root="216.840.1.150081.10.20.22.4.2 " /> <id nullFlavor="NA" /> <code codeSystem="local" code= "IRON" displayName="IRON" /> <statusCode code="completed" /> < effectiveTime value="619812730306" /> <value unit="mcg/dL" xsi:type="PQ " value="30" /> <interpretationCode codeSystem="local" code="*" /> <referenceRange> <observationRange> <text>35-150</ text> </observationRange> </referenceRange> </ observation> </component> </organizer> </entry> <entry> <organizer moodCode="EVN" classCode="BATTERY"> <templateId root= "216.840.1.584518.10..22.4.1" /> <id nullFlavor="NA" /> <code codeSystem="local" code="CBC" displayName="CBC" /> <statusCode code= "completed" /> <component> <observation moodCode="EVN" classCode= "OBS"> <templateId root="16.840.1.068445.10.20.22.4.2" /> < id nullFlavor="NA" /> <code codeSystem="local" code="MCH" displayName= "MEAN CELL HGB" /> <statusCode code="completed" /> < effectiveTime value="788686610533" /> <value unit="pg" xsi:type="PQ" value="28.8" /> <referenceRange> <observationRange> <text>27.0-33.0</text> </observationRange> </ referenceRange> </observation> </component> <component> <observation moodCode="EVN" classCode="OBS"> <templateId root= "216.840.1.392247.10..22.4.2" /> <id nullFlavor="NA" /> < code codeSystem="local" code="[facility]CHC" displayName="MEAN CELL HGB CONCENTRATION" / > <statusCode code="completed" /> <effectiveTime value= "" /> <value unit="g/dL" xsi:type="PQ" value="33.9" /> <referenceRange> <observationRange> <text>32.0- 37.0</text> </observationRange> </referenceRange> </ observation> </component> <component> <observation moodCode= "EVN" classCode="OBS"> <templateId root="16.840.1.396144.08.05.22.4.2 " /> <id nullFlavor="NA" /> <code codeSystem="local" code="MCV " displayName="MEAN CELL VOLUME" /> <statusCode code="completed" /> <effectiveTime value="" /> <value unit="fl" xsi:type ="PQ" value="84.9" /> <referenceRange> <observationRange> <text>80.0-100.0</text> </observationRange> </ referenceRange> </observation> </component> <component> <observation moodCode="EVN" classCode="OBS"> <templateId root= "216.840.1.525490.10..22.4.2" /> <id nullFlavor="NA" /> < code codeSystem="local" code="RBC" displayName="RED BLOOD CELL" /> < statusCode code="completed" /> <effectiveTime value="" /> <value unit="m/cumm" xsi:type="PQ" value="4.65" /> < referenceRange> <observationRange> <text>4.00-6.00</text > </observationRange> </referenceRange> </observation > </component> <component> <observation moodCode="EVN" classCode="OBS"> <templateId root="216.840.1.581076.10.20.22.4.2" /> <id nullFlavor="NA" /> <code codeSystem="local" code="RDW" displayName="RED CELL DISTRIBUTION WIDTH" /> <statusCode code= "completed" /> <effectiveTime value="224362599821" /> <value unit="%" xsi:type="PQ" value="15.2" /> <referenceRange> <observationRange> <text>11.0-15.6</text> </ observationRange> </referenceRange> </observation> </ component> <component> <observation moodCode="EVN" classCode="OBS"> <templateId root="840.1.413829.10.20.22.4.2" /> <id nullFlavor="NA" /> <code codeSystem="local" code="WBC" displayName= "WHITE BLOOD CELL" /> <statusCode code="completed" /> < effectiveTime value="632059977324" /> <value unit="k/cumm" xsi:type="PQ " value="5.7" /> <referenceRange> <observationRange> <text>5.0-10.0</text> </observationRange> </ referenceRange> </observation> </component> <component> <observation moodCode="EVN" classCode="OBS"> <templateId root= "16.840.1.928748.10.20.22.4.2" /> <id nullFlavor="NA" /> < code codeSystem="local" code="HGBT" displayName="HEMOGLOBIN" /> < statusCode code="completed" /> <effectiveTime value="903366187832" /> <value unit="gm/dL" xsi:type="PQ" value="13.4" /> < interpretationCode codeSystem="local" code="*" /> <referenceRange> <observationRange> <text>14.0-18.0</text> </ observationRange> </referenceRange> </observation> </ component> <component> <observation moodCode="EVN" classCode="OBS"> <templateId root="2.16.840.1.583537.10.20.22.4.2" /> <id nullFlavor="NA" /> <code codeSystem="local" code="HCTT" displayName= "HEMATOCRIT" /> <statusCode code="completed" /> < effectiveTime value="479862943049" /> <value unit="%" xsi:type="PQ " value="39.5" /> <interpretationCode codeSystem="local" code="*" /> <referenceRange> <observationRange> <text>40.0- 54.0</text> </observationRange> </referenceRange> </ observation> </component> <component> <observation moodCode= "EVN" classCode="OBS"> <templateId root="2.16.840.1.223660.10.20.22.4.2 " /> <id nullFlavor="NA" /> <code codeSystem="local" code="PLT " displayName="PLATELET COUNT" /> <statusCode code="completed" /> <effectiveTime value="079898836044" /> <value unit="k/cumm" xsi: type="PQ" value="180" /> <referenceRange> <observationRange > <text>150-450</text> </observationRange> </ referenceRange> </observation> </component> </organizer> </entry > <entry> <organizer moodCode="EVN" classCode="BATTERY"> <templateId root="12.02.840.1.221559.10..22.4.1" /> <id nullFlavor="NA" /> <code codeSystem="local" code="PT" displayName="PROTHROMBIN TIME WITH INR" /> < statusCode code="completed" /> <component> <observation moodCode= "EVN" classCode="OBS"> <templateId root="12.02.840.1.594965.10..22.4.2 " /> <id nullFlavor="NA" /> <code codeSystem="local" code= "INRX" displayName="INTERNATIONAL NORMAL RATIO" /> <statusCode code= "completed" /> <effectiveTime value="" /> <value unit="" xsi:type="PQ" value="0.9" /> <referenceRange> < observationRange> <text>0.9-1.1</text> </ observationRange> </referenceRange> </observation> </ component> <component> <observation moodCode="EVN" classCode="OBS"> <templateId root="840.1.205729.10..22.4.2" /> <id nullFlavor="NA" /> <code codeSystem="local" code="PTPAT" displayName= "PROTHROMBIN TIME" /> <statusCode code="completed" /> < effectiveTime value="" /> <value unit="sec" xsi:type="PQ" value="10.9" /> <referenceRange> <observationRange> <text>10.0-12.9</text> </observationRange> </ referenceRange> </observation> </component> </organizer> </entry > <entry> <organizer moodCode="EVN" classCode="BATTERY"> <templateId root="12.02.830.1.151527.10..22.4.1" /> <id nullFlavor="NA" /> <code codeSystem="local" code="METAB" displayName="METABOLIC PANEL, BASIC" /> < statusCode code="completed" /> <component> <observation moodCode= "EVN" classCode="OBS"> <templateId root="12.02.840.1.111504....4.2 " /> <id nullFlavor="NA" /> <code codeSystem="local" code="K" displayName="POTASSIUM" /> <statusCode code="completed" /> < effectiveTime value="" /> <value unit="mmol/L" xsi:type="PQ " value="4.1" /> <referenceRange> <observationRange> <text>3.5-5.3</text> </observationRange> </ referenceRange> </observation> </component> <component> <observation moodCode="EVN" classCode="OBS"> <templateId root= "12.02.840.1.052468.08.05.22.4.2" /> <id nullFlavor="NA" /> < code codeSystem="local" code="eGFR" displayName="EST GFR (MDRD)" /> < statusCode code="completed" /> <effectiveTime value="" /> <value unit="mL/min" xsi:type="PQ" value="53" /> < interpretationCode codeSystem="local" code="*" /> <referenceRange> <observationRange> <text>> 59</text> </ observationRange> </referenceRange> </observation> </ component> <component> <observation moodCode="EVN" classCode="OBS"> <templateId root="12.02.840.1.643573...4.2" /> <id nullFlavor="NA" /> <code codeSystem="local" code="GAP" displayName= "ANION GAP" /> <statusCode code="completed" /> <effectiveTime value="" /> <value unit="mmol/L" xsi:type="PQ" value="9" / > <referenceRange> <observationRange> <text>5- 15</text> </observationRange> </referenceRange> </ observation> </component> <component> <observation moodCode= "EVN" classCode="OBS"> <templateId root="2.16.840.1.214804.10..22.4.2 " /> <id nullFlavor="NA" /> <code codeSystem="local" code= "eCrCl" displayName="EST CrCl (CG)" /> <statusCode code="completed" /> <effectiveTime value="" /> <value unit="mL/min" xsi:type="PQ" value="55" /> <interpretationCode codeSystem="local" code ="*" /> <referenceRange> <observationRange> < text>> 59</text> </observationRange> </referenceRange> </observation> </component> <component> <observation moodCode="EVN" classCode="OBS"> <templateId root= "2.16.840.1.342442.10..22.4.2" /> <id nullFlavor="NA" /> < code codeSystem="local" code="GLU" displayName="GLUCOSE" /> < statusCode code="completed" /> <effectiveTime value="" /> <value unit="mg/dL" xsi:type="PQ" value="103" /> < interpretationCode codeSystem="local" code="*" /> <referenceRange> <observationRange> <text>70-99</text> </ observationRange> </referenceRange> </observation> </ component> <component> <observation moodCode="EVN" classCode="OBS"> <templateId root="216.840.1.552180.1022.4.2" /> <id nullFlavor="NA" /> <code codeSystem="local" code="CA" displayName= "CALCIUM" /> <statusCode code="completed" /> <effectiveTime value="" /> <value unit="mg/dL" xsi:type="PQ" value="9.1" / > <referenceRange> <observationRange> <text>8.5 -10.1</text> </observationRange> </referenceRange> </ observation> </component> <component> <observation moodCode= "EVN" classCode="OBS"> <templateId root="16.840.1.852236.22.4.2 " /> <id nullFlavor="NA" /> <code codeSystem="local" code="BUN " displayName="BLOOD UREA NITROGEN" /> <statusCode code="completed" /> <effectiveTime value="" /> <value unit="mg/dL" xsi:type="PQ" value="19" /> <referenceRange> < observationRange> <text>7-20</text> </observationRange> </referenceRange> </observation> </component> < component> <observation moodCode="EVN" classCode="OBS"> < templateId root="16.840.1.239116.10.22.4.2" /> <id nullFlavor="NA " /> <code codeSystem="local" code="CREAT" displayName="CREATININE" /> <statusCode code="completed" /> <effectiveTime value= "" /> <value unit="mg/dL" xsi:type="PQ" value="1.3" /> <referenceRange> <observationRange> <text>0.7-1.3< /text> </observationRange> </referenceRange> </ observation> </component> <component> <observation moodCode= "EVN" classCode="OBS"> <templateId root="216.840.1.974632.10..22.4.2 " /> <id nullFlavor="NA" /> <code codeSystem="local" code="NA " displayName="SODIUM" /> <statusCode code="completed" /> < effectiveTime value="" /> <value unit="mmol/L" xsi:type="PQ " value="139" /> <referenceRange> <observationRange> <text>135-148</text> </observationRange> </ referenceRange> </observation> </component> <component> <observation moodCode="EVN" classCode="OBS"> <templateId root= "16.840.1.670104.10..4.2" /> <id nullFlavor="NA" /> < code codeSystem="local" code="CL" displayName="CHLORIDE" /> < statusCode code="completed" /> <effectiveTime value="" /> <value unit="mmol/L" xsi:type="PQ" value="105" /> < referenceRange> <observationRange> <text>98-110</text> </observationRange> </referenceRange> </observation> </component> <component> <observation moodCode="EVN" classCode ="OBS"> <templateId root="16.840.1.035396.10.2022.4.2" /> < id nullFlavor="NA" /> <code codeSystem="local" code="CO2" displayName= "CARBON DIOXIDE" /> <statusCode code="completed" /> < effectiveTime value="272716910383" /> <value unit="mmol/L" xsi:type="PQ " value="25" /> <referenceRange> <observationRange> <text>21-32</text> </observationRange> </ referenceRange> </observation> </component> </organizer> </entry > <entry> <organizer moodCode="EVN" classCode="BATTERY"> <templateId root="16.840.1.435590.10..4.1" /> <id nullFlavor="NA" /> <code codeSystem="local" code="966215" displayName="Creatinine, Serum" /> < statusCode code="completed" /> <component> <observation moodCode= "EVN" classCode="OBS"> <templateId root="216.840.1.259513.10..4.2 " /> <id nullFlavor="NA" /> <code codeSystem="local" code= "184805" displayName="Creatinine, Serum" /> <statusCode code="completed " /> <effectiveTime value="281432883086" /> <value unit="" xsi :type="PQ" value="1.3" /> <referenceRange> <observationRange > <text>0.6-1.4</text> </observationRange> </ referenceRange> </observation> </component> </organizer> </entry > <entry> <organizer moodCode="EVN" classCode="BATTERY"> <templateId root="16.840.1.770486.10..4.1" /> <id nullFlavor="NA" /> <code codeSystem="local" code="191034" displayName="GFR, Estimated" /> < statusCode code="completed" /> <component> <observation moodCode= "EVN" classCode="OBS"> <templateId root="840.1.771404.10..22.4.2 " /> <id nullFlavor="NA" /> <code codeSystem="local" code= "231831" displayName="eGFR" /> <statusCode code="completed" /> <effectiveTime value="177079136642" /> <value unit="ML/MIN" xsi:type= "PQ" value="59" /> <referenceRange> <observationRange> <text>NRG</text> </observationRange> </ referenceRange> </observation> </component> </organizer> </entry > <entry> <organizer moodCode="EVN" classCode="BATTERY"> <templateId root="216.840.1.625173.10..22.4.1" /> <id nullFlavor="NA" /> <code codeSystem="local" code="393115" displayName="CBC With Platelet and Differential " /> <statusCode code="completed" /> <component> <observation moodCode="EVN" classCode="OBS"> <templateId root= "216.840.1.522869.10..22.4.2" /> <id nullFlavor="NA" /> < code codeSystem="local" code="267703" displayName="Hematocrit (HCT)" /> <statusCode code="completed" /> <effectiveTime value="874530903381" / > <value unit="%" xsi:type="PQ" value="43.3" /> < referenceRange> <observationRange> <text>42.0-52.0</text > </observationRange> </referenceRange> </observation > </component> <component> <observation moodCode="EVN" classCode="OBS"> <templateId root="216.840.1.771199.10..22.4.2" /> <id nullFlavor="NA" /> <code codeSystem="local" code="558295" displayName="Hemoglobin (Hgb)" /> <statusCode code="completed" /> <effectiveTime value="450835786931" /> <value unit="G/DL" xsi:type ="PQ" value="14.5" /> <referenceRange> <observationRange> <text>14.0-18.0</text> </observationRange> </ referenceRange> </observation> </component> <component> <observation moodCode="EVN" classCode="OBS"> <templateId root= "16.840.1.547245.08.05.22.4.2" /> <id nullFlavor="NA" /> < code codeSystem="local" code="383729" displayName="WBC" /> <statusCode code="completed" /> <effectiveTime value="793421861723" /> < value unit="K/UL" xsi:type="PQ" value="5.81" /> <referenceRange> <observationRange> <text>4.8-10.8</text> </ observationRange> </referenceRange> </observation> </ component> </organizer> </entry> <entry> <organizer moodCode="EVN" classCode="BATTERY"> <templateId root="12.02.840.1.820097.22.4.1" /> <id nullFlavor="NA" /> <code codeSystem="local" code="579977" displayName="Potassium (K), Serum" /> <statusCode code="completed" /> <component> <observation moodCode="EVN" classCode="OBS"> < templateId root="16.840.1.255559.10..22.4.2" /> <id nullFlavor="NA " /> <code codeSystem="local" code="763290" displayName="Potassium (K) , Serum" /> <statusCode code="completed" /> <effectiveTime value="104645523909" /> <value unit="MEQ/L" xsi:type="PQ" value="4.0" / > <referenceRange> <observationRange> <text>3.2 -5.2</text> </observationRange> </referenceRange> </ observation> </component> </organizer> </entry> <entry> <organizer moodCode="EVN" classCode="BATTERY"> <templateId root= "216.840.1.269577.10..22.4.1" /> <id nullFlavor="NA" /> <code codeSystem="local" code="374135" displayName="Vitamin D, 25-Hydroxy" /> < statusCode code="completed" /> <component> <observation moodCode= "EVN" classCode="OBS"> <templateId root="16.840.1.652234.10..22.4.2 " /> <id nullFlavor="NA" /> <code codeSystem="local" code= "654474" displayName="Vitamin D,25-Hydroxy" /> <statusCode code= "completed" /> <effectiveTime value="444939516470" /> <value unit="NG/ML" xsi:type="PQ" value="65.52" /> <referenceRange> <observationRange> <text>25-80</text> </ observationRange> </referenceRange> </observation> </ component> </organizer> </entry> <entry> <organizer moodCode="EVN" classCode="BATTERY"> <templateId root="12.02.840.1.944521.10.20.22.4.1" /> <id nullFlavor="NA" /> <code codeSystem="local" code="054958" displayName="Uri Marion CA/CR ratio" /> <statusCode code="completed" /> <component> <observation moodCode="EVN" classCode="OBS"> < templateId root="216.840.1.874617.10..4.2" /> <id nullFlavor="NA " /> <code codeSystem="local" code="710993" displayName="Creatinine, Random U" /> <statusCode code="completed" /> <effectiveTime value="997655687530" /> <value unit="MG/DL" xsi:type="PQ" value="141.0 " /> <referenceRange> <observationRange> <text> NRG</text> </observationRange> </referenceRange> </ observation> </component> <component> <observation moodCode= "EVN" classCode="OBS"> <templateId root="2.840.1.443131.08.05.22.4.2 " /> <id nullFlavor="NA" /> <code codeSystem="local" code= "007244" displayName="Protein,Total, Rdm U" /> <statusCode code= "completed" /> <effectiveTime value="226420566551" /> <value unit="MG/DL" xsi:type="PQ" value="15.0" /> <referenceRange> <observationRange> <text>NRG</text> </observationRange> </referenceRange> </observation> </component> < component> <observation moodCode="EVN" classCode="OBS"> < templateId root="216.840.1.883007.10..4.2" /> <id nullFlavor="NA " /> <code codeSystem="local" code="873187" displayName="Protein/Creat Ratio" /> <statusCode code="completed" /> <effectiveTime value ="267427551689" /> <value unit="" xsi:type="PQ" value="0.11" /> <referenceRange> <observationRange> <text>NRG</text> </observationRange> </referenceRange> </observation > </component> </organizer> </entry> <entry> <organizer moodCode= "EVN" classCode="BATTERY"> <templateId root="216.840.1.522633.10..22.4.1 " /> <id nullFlavor="NA" /> <code codeSystem="local" code="885530" displayName="CT ANGIOGR ABD W/O&amp;W" /> <statusCode code= "completed" /> <component> <observation moodCode="EVN" classCode= "OBS"> <templateId root="216.840.1.856203.10..22.4.2" /> < id nullFlavor="NA" /> <code codeSystem="local" code="028952" displayName="Misc. Result, see notes for description" /> <statusCode code="completed" /> <effectiveTime value="215280390683" /> < value unit="" xsi:type="PQ" value="See Attached Document" /> < referenceRange> <observationRange> <text>NRG</text> </observationRange> </referenceRange> </observation> </component> <component> <observation moodCode="EVN" classCode= "OBS"> <templateId root="216.840.1.078730.10..22.4.2" /> < id nullFlavor="NA" /> <code codeSystem="local" code="643535" displayName="CT ANGIOGR ABD W/O&W" /> <statusCode code="completed" /> <effectiveTime value="109890852666" /> <value unit="" xsi: type="PQ" value="See Attached Document" /> <referenceRange> <observationRange> <text>NRG</text> </observationRange> </referenceRange> </observation> </component> </ organizer> </entry> <entry> <organizer moodCode="EVN" classCode="BATTERY"> <templateId root="216.840.1.699537.10.20.22.4.1" /> <id nullFlavor= "NA" /> <code codeSystem="local" code="26231-5" displayName="Complete blood count (CBC) with automated white blood cell (WBC) differential" /> < statusCode code="completed" /> <component> <observation moodCode= "EVN" classCode="OBS"> <templateId root="216.840.1.344667.10.20.22.4.2 " /> <id nullFlavor="NA" /> <code codeSystem="local" code= "6690-2" displayName="Blood leukocytes automated count (number/volume)" /> <statusCode code="completed" /> <effectiveTime value="115552805580 " /> <value unit="10*3/uL" xsi:type="PQ" value="6.3" /> < referenceRange> <observationRange> <text>4.3-11.0</text > </observationRange> </referenceRange> </observation > </component> <component> <observation moodCode="EVN" classCode="OBS"> <templateId root="16.840.1.470129.10.20.22.4.2" /> <id nullFlavor="NA" /> <code codeSystem="local" code="789-8" displayName="Blood erythrocytes automated count (number/volume)" /> < statusCode code="completed" /> <effectiveTime value="170417875608" /> <value unit="10*6/uL" xsi:type="PQ" value="4.70" /> < referenceRange> <observationRange> <text>4.35-5.85</text > </observationRange> </referenceRange> </observation > </component> <component> <observation moodCode="EVN" classCode="OBS"> <templateId root="2.16.840.1.963447.10.20.22.4.2" /> <id nullFlavor="NA" /> <code codeSystem="local" code="67668-1 " displayName="Venous blood hemoglobin measurement (mass/volume)" /> < statusCode code="completed" /> <effectiveTime value="471011936305" /> <value unit="g/dL" xsi:type="PQ" value="14.0" /> < referenceRange> <observationRange> <text>13.3-17.7</text > </observationRange> </referenceRange> </observation > </component> <component> <observation moodCode="EVN" classCode="OBS"> <templateId root="16.840.1.657006.10.20.22.4.2" /> <id nullFlavor="NA" /> <code codeSystem="local" code="88863-9 " displayName="Blood hematocrit (volume fraction)" /> <statusCode code= "completed" /> <effectiveTime value="785058295107" /> <value unit="%" xsi:type="PQ" value="41" /> <referenceRange> < observationRange> <text>40-54</text> </observationRange > </referenceRange> </observation> </component> < component> <observation moodCode="EVN" classCode="OBS"> < templateId root="2.16.840.1.124338.10.20.22.4.2" /> <id nullFlavor="NA " /> <code codeSystem="local" code="787-2" displayName="Automated erythrocyte mean corpuscular volume" /> <statusCode code="completed" / > <effectiveTime value="200139909735" /> <value unit="[foz_us] " xsi:type="PQ" value="87" /> <referenceRange> < observationRange> <text>80-99</text> </observationRange > </referenceRange> </observation> </component> < component> <observation moodCode="EVN" classCode="OBS"> < templateId root="2.16.840.1.222096.10.20.22.4.2" /> <id nullFlavor="NA " /> <code codeSystem="local" code="785-6" displayName="Automated erythrocyte mean corpuscular hemoglobin (mass per erythrocyte)" /> < statusCode code="completed" /> <effectiveTime value="103746049325" /> <value unit="pg" xsi:type="PQ" value="30" /> <referenceRange> <observationRange> <text>25-34</text> </ observationRange> </referenceRange> </observation> </ component> <component> <observation moodCode="EVN" classCode="OBS"> <templateId root="2.16.840.1.277265.10.20.22.4.2" /> <id nullFlavor="NA" /> <code codeSystem="local" code="786-4" displayName= "Automated erythrocyte mean corpuscular hemoglobin concentration measurement ( mass/volume)" /> <statusCode code="completed" /> < effectiveTime value="829566985933" /> <value unit="g/dL" xsi:type="PQ" value="34" /> <referenceRange> <observationRange> <text>32-36</text> </observationRange> </referenceRange > </observation> </component> <component> <observation moodCode="EVN" classCode="OBS"> <templateId root= "2.16.840.1.280546.10.20.22.4.2" /> <id nullFlavor="NA" /> < code codeSystem="local" code="788-0" displayName="Automated erythrocyte distribution width ratio" /> <statusCode code="completed" /> < effectiveTime value="" /> <value unit="%" xsi:type="PQ " value="14.9" /> <interpretationCode codeSystem="local" code="" /> <referenceRange> <observationRange> <text>10.0- 14.5</text> </observationRange> </referenceRange> </ observation> </component> <component> <observation moodCode= "EVN" classCode="OBS"> <templateId root="216.840.1.138566.10..22.4.2 " /> <id nullFlavor="NA" /> <code codeSystem="local" code="777 -3" displayName="Automated blood platelet count (count/volume)" /> < statusCode code="completed" /> <effectiveTime value="" /> <value unit="10*3/uL" xsi:type="PQ" value="201" /> < referenceRange> <observationRange> <text>130-400</text> </observationRange> </referenceRange> </observation > </component> <component> <observation moodCode="EVN" classCode="OBS"> <templateId root="2.16.840.1.641684.10..22.4.2" /> <id nullFlavor="NA" /> <code codeSystem="local" code="12495-2 " displayName="Automated blood platelet mean volume measurement" /> < statusCode code="completed" /> <effectiveTime value="" /> <value unit="[foz_us]" xsi:type="PQ" value="10.1" /> < referenceRange> <observationRange> <text>7.4-10.4</text > </observationRange> </referenceRange> </observation > </component> <component> <observation moodCode="EVN" classCode="OBS"> <templateId root="2.16.840.1.373819.10.20.22.4.2" /> <id nullFlavor="NA" /> <code codeSystem="local" code="770-8" displayName="Automated blood neutrophils/100 leukocytes" /> < statusCode code="completed" /> <effectiveTime value="976917936215" /> <value unit="%" xsi:type="PQ" value="61" /> < referenceRange> <observationRange> <text>42-75</text> </observationRange> </referenceRange> </observation> </component> <component> <observation moodCode="EVN" classCode= "OBS"> <templateId root="216.840.1.987781.10..22.4.2" /> < id nullFlavor="NA" /> <code codeSystem="local" code="736-9" displayName ="Automated blood lymphocytes/100 leukocytes" /> <statusCode code= "completed" /> <effectiveTime value="590895131060" /> <value unit="%" xsi:type="PQ" value="29" /> <referenceRange> < observationRange> <text>12-44</text> </observationRange > </referenceRange> </observation> </component> < component> <observation moodCode="EVN" classCode="OBS"> < templateId root="2.16.840.1.453493.10.20.22.4.2" /> <id nullFlavor="NA " /> <code codeSystem="local" code="99627-7" displayName="Blood monocytes/100 leukocytes" /> <statusCode code="completed" /> < effectiveTime value="210117806119" /> <value unit="%" xsi:type="PQ " value="7" /> <referenceRange> <observationRange> <text>0-12</text> </observationRange> </referenceRange > </observation> </component> <component> <observation moodCode="EVN" classCode="OBS"> <templateId root= "2.16.840.1.033508.10.20.22.4.2" /> <id nullFlavor="NA" /> < code codeSystem="local" code="713-8" displayName="Automated blood eosinophils/ 100 leukocytes" /> <statusCode code="completed" /> < effectiveTime value="414556271406" /> <value unit="%" xsi:type="PQ " value="3" /> <referenceRange> <observationRange> <text>0-10</text> </observationRange> </referenceRange > </observation> </component> <component> <observation moodCode="EVN" classCode="OBS"> <templateId root= "2.16.840.1.266979.10.20.22.4.2" /> <id nullFlavor="NA" /> < code codeSystem="local" code="706-2" displayName="Automated blood basophils/100 leukocytes" /> <statusCode code="completed" /> <effectiveTime value="951727304298" /> <value unit="%" xsi:type="PQ" value="0" /> <referenceRange> <observationRange> <text>0-10 </text> </observationRange> </referenceRange> </ observation> </component> <component> <observation moodCode= "EVN" classCode="OBS"> <templateId root="2.16.840.1.247890.10.20.22.4.2 " /> <id nullFlavor="NA" /> <code codeSystem="local" code="751 -8" displayName="Blood neutrophils automated count (number/volume)" /> <statusCode code="completed" /> <effectiveTime value="204716987321" /> <value unit="10*3" xsi:type="PQ" value="3.8" /> < referenceRange> <observationRange> <text>1.8-7.8</text> </observationRange> </referenceRange> </observation > </component> <component> <observation moodCode="EVN" classCode="OBS"> <templateId root="216.840.1.074327.10..22.4.2" /> <id nullFlavor="NA" /> <code codeSystem="local" code="731-0" displayName="Blood lymphocytes automated count (number/volume)" /> < statusCode code="completed" /> <effectiveTime value="758895426504" /> <value unit="10*3" xsi:type="PQ" value="1.8" /> < referenceRange> <observationRange> <text>1.0-4.0</text> </observationRange> </referenceRange> </observation > </component> <component> <observation moodCode="EVN" classCode="OBS"> <templateId root="216.840.1.173107.10.20.22.4.2" /> <id nullFlavor="NA" /> <code codeSystem="local" code="742-7" displayName="Blood monocytes automated count (number/volume)" /> < statusCode code="completed" /> <effectiveTime value="679476563983" /> <value unit="10*3" xsi:type="PQ" value="0.5" /> < referenceRange> <observationRange> <text>0.0-1.0</text> </observationRange> </referenceRange> </observation > </component> <component> <observation moodCode="EVN" classCode="OBS"> <templateId root="216.840.1.546676.10...4.2" /> <id nullFlavor="NA" /> <code codeSystem="local" code="711-2" displayName="Automated eosinophil count" /> <statusCode code="completed " /> <effectiveTime value="149970580976" /> <value unit="10*3/ uL" xsi:type="PQ" value="0.2" /> <referenceRange> < observationRange> <text>0.0-0.3</text> </ observationRange> </referenceRange> </observation> </ component> <component> <observation moodCode="EVN" classCode="OBS"> <templateId root="216.840.1.784226.10..4.2" /> <id nullFlavor="NA" /> <code codeSystem="local" code="704-7" displayName= "Automated blood basophil count (count/volume)" /> <statusCode code= "completed" /> <effectiveTime value="701603833938" /> <value unit="10*3/uL" xsi:type="PQ" value="0.0" /> <referenceRange> <observationRange> <text>0.0-0.1</text> </ observationRange> </referenceRange> </observation> </ component> </organizer> </entry> <entry> <organizer moodCode="EVN" classCode="BATTERY"> <templateId root="2.16.840.1.700676.10..4.1" /> <id nullFlavor="NA" /> <code codeSystem="local" code="49257-1" displayName="Comprehensive metabolic panel" /> <statusCode code="completed " /> <component> <observation moodCode="EVN" classCode="OBS"> <templateId root="216.840.1.981274.10.20.22.4.2" /> <id nullFlavor ="NA" /> <code codeSystem="local" code="2951-2" displayName="Serum or plasma sodium measurement (moles/volume)" /> <statusCode code= "completed" /> <effectiveTime value="683709369042" /> <value unit="mmol/L" xsi:type="PQ" value="140" /> <referenceRange> <observationRange> <text>135-145</text> </ observationRange> </referenceRange> </observation> </ component> <component> <observation moodCode="EVN" classCode="OBS"> <templateId root="16.840.1.816104.10..22.4.2" /> <id nullFlavor="NA" /> <code codeSystem="local" code="2823-3" displayName= "Serum or plasma potassium measurement (moles/volume)" /> <statusCode code="completed" /> <effectiveTime value="998185240179" /> < value unit="mmol/L" xsi:type="PQ" value="3.9" /> <referenceRange> <observationRange> <text>3.6-5.0</text> </ observationRange> </referenceRange> </observation> </ component> <component> <observation moodCode="EVN" classCode="OBS"> <templateId root="16.840.1.923371.10.20.22.4.2" /> <id nullFlavor="NA" /> <code codeSystem="local" code="" displayName= "Serum or plasma chloride measurement (moles/volume)" /> <statusCode code="completed" /> <effectiveTime value="392227942470" /> < value unit="mmol/L" xsi:type="PQ" value="107" /> <referenceRange> <observationRange> <text>98-107</text> </ observationRange> </referenceRange> </observation> </ component> <component> <observation moodCode="EVN" classCode="OBS"> <templateId root="2.16.840.1.692712.10.20.22.4.2" /> <id nullFlavor="NA" /> <code codeSystem="local" code="2028-06" displayName= "Carbon dioxide" /> <statusCode code="completed" /> < effectiveTime value="372251583518" /> <value unit="mmol/L" xsi:type="PQ " value="23" /> <referenceRange> <observationRange> <text>21-32</text> </observationRange> </ referenceRange> </observation> </component> <component> <observation moodCode="EVN" classCode="OBS"> <templateId root= "2.16.840.1.036206.10.20.22.4.2" /> <id nullFlavor="NA" /> < code codeSystem="local" code="96434-5" displayName="Serum or plasma anion gap determination (moles/volume)" /> <statusCode code="completed" /> <effectiveTime value="796644139087" /> <value unit="mmol/L" xsi: type="PQ" value="10" /> <referenceRange> <observationRange> <text>5-14</text> </observationRange> </ referenceRange> </observation> </component> <component> <observation moodCode="EVN" classCode="OBS"> <templateId root= "2.16.840.1.806789.10.20.22.4.2" /> <id nullFlavor="NA" /> < code codeSystem="local" code="3094-0" displayName="Serum or plasma urea nitrogen measurement (mass/volume)" /> <statusCode code="completed" /> <effectiveTime value="402864076224" /> <value unit="mg/dL" xsi:type="PQ" value="18" /> <referenceRange> < observationRange> <text>7-18</text> </observationRange> </referenceRange> </observation> </component> < component> <observation moodCode="EVN" classCode="OBS"> < templateId root="216.840.1.471198.10..22.4.2" /> <id nullFlavor="NA " /> <code codeSystem="local" code="2160-0" displayName="Serum or plasma creatinine measurement (mass/volume)" /> <statusCode code= "completed" /> <effectiveTime value="919237763149" /> <value unit="mg/dL" xsi:type="PQ" value="1.26" /> <referenceRange> <observationRange> <text>0.60-1.30</text> </ observationRange> </referenceRange> </observation> </ component> <component> <observation moodCode="EVN" classCode="OBS"> <templateId root="16.840.1.312397.10..22.4.2" /> <id nullFlavor="NA" /> <code codeSystem="local" code="3097-3" displayName= "Serum or plasma urea nitrogen/creatinine mass ratio" /> <statusCode code="completed" /> <effectiveTime value="370125955845" /> < value unit="" xsi:type="PQ" value="14" /> <referenceRange> < observationRange> <text>NRG</text> </observationRange> </referenceRange> </observation> </component> < component> <observation moodCode="EVN" classCode="OBS"> < templateId root="2.16.840.1.101151.10.20.22.4.2" /> <id nullFlavor="NA " /> <code codeSystem="local" code="46219-9" displayName="Serum or plasma creatinine measurement with calculation of estimated glomerular filtration rate" /> <statusCode code="completed" /> < effectiveTime value="927723622593" /> <value unit="" xsi:type="PQ" value="55" /> <referenceRange> <observationRange> <text>NRG</text> </observationRange> </referenceRange> </observation> </component> <component> <observation moodCode="EVN" classCode="OBS"> <templateId root= "216.840.1.203629.10..22.4.2" /> <id nullFlavor="NA" /> < code codeSystem="local" code="2345-7" displayName="Serum or plasma glucose measurement (mass/volume)" /> <statusCode code="completed" /> <effectiveTime value="116263137762" /> <value unit="mg/dL" xsi:type="PQ " value="100" /> <referenceRange> <observationRange> <text>70-105</text> </observationRange> </ referenceRange> </observation> </component> <component> <observation moodCode="EVN" classCode="OBS"> <templateId root= "216.840.1.191190.10.20.22.4.2" /> <id nullFlavor="NA" /> < code codeSystem="local" code="02849-0" displayName="Serum or plasma calcium measurement (mass/volume)" /> <statusCode code="completed" /> <effectiveTime value="883994656710" /> <value unit="mg/dL" xsi:type="PQ " value="9.0" /> <referenceRange> <observationRange> <text>8.5-10.1</text> </observationRange> </ referenceRange> </observation> </component> <component> <observation moodCode="EVN" classCode="OBS"> <templateId root= "2.16.840.1.147758.10.20.22.4.2" /> <id nullFlavor="NA" /> < code codeSystem="local" code="1974-11" displayName="Serum or plasma total bilirubin measurement (mass/volume)" /> <statusCode code="completed" / > <effectiveTime value="664806487258" /> <value unit="mg/dL" xsi:type="PQ" value="0.8" /> <referenceRange> < observationRange> <text>0.1-1.0</text> </ observationRange> </referenceRange> </observation> </ component> <component> <observation moodCode="EVN" classCode="OBS"> <templateId root="2.16.840.1.465562.10.20.22.4.2" /> <id nullFlavor="NA" /> <code codeSystem="local" code="6768-6" displayName= "Serum or plasma alkaline phosphatase measurement (enzymatic activity/volume)" / > <statusCode code="completed" /> <effectiveTime value= "927830390535" /> <value unit="U/L" xsi:type="PQ" value="82" /> <referenceRange> <observationRange> <text>40-136</ text> </observationRange> </referenceRange> </ observation> </component> <component> <observation moodCode= "EVN" classCode="OBS"> <templateId root="2.16.840.1.090173.10.20.22.4.2 " /> <id nullFlavor="NA" /> <code codeSystem="local" code= "1920-05" displayName="Serum or plasma aspartate aminotransferase measurement ( enzymatic activity/volume)" /> <statusCode code="completed" /> <effectiveTime value="917474659521" /> <value unit="U/L" xsi:type="PQ " value="22" /> <referenceRange> <observationRange> <text>5-34</text> </observationRange> </referenceRange > </observation> </component> <component> <observation moodCode="EVN" classCode="OBS"> <templateId root= "16.840.1.026327.10..22.4.2" /> <id nullFlavor="NA" /> < code codeSystem="local" code="17411-22" displayName="Serum or plasma alanine aminotransferase measurement (enzymatic activity/volume)" /> < statusCode code="completed" /> <effectiveTime value="293201561123" /> <value unit="U/L" xsi:type="PQ" value="22" /> <referenceRange > <observationRange> <text>0-55</text> </ observationRange> </referenceRange> </observation> </ component> <component> <observation moodCode="EVN" classCode="OBS"> <templateId root="16.840.1.513606.10.20.22.4.2" /> <id nullFlavor="NA" /> <code codeSystem="local" code="2885-" displayName= "Serum or plasma protein measurement (mass/volume)" /> <statusCode code ="completed" /> <effectiveTime value="510512349130" /> <value unit="g/dL" xsi:type="PQ" value="6.9" /> <referenceRange> < observationRange> <text>6.4-8.2</text> </ observationRange> </referenceRange> </observation> </ component> <component> <observation moodCode="EVN" classCode="OBS"> <templateId root="16.840.1.067808.10.20.22.4.2" /> <id nullFlavor="NA" /> <code codeSystem="local" code="1751-" displayName= "Serum or plasma albumin measurement (mass/volume)" /> <statusCode code ="completed" /> <effectiveTime value="472687134039" /> <value unit="g/dL" xsi:type="PQ" value="3.9" /> <referenceRange> < observationRange> <text>3.2-4.5</text> </ observationRange> </referenceRange> </observation> </ component> </organizer> </entry> <entry> <organizer moodCode="EVN" classCode="BATTERY"> <templateId root="16.840.1.917235.10..22.4.1" /> <id nullFlavor="NA" /> <code codeSystem="local" code="TSH" displayName ="THYROID STIMULATING HORMONE" /> <statusCode code="completed" /> < component> <observation moodCode="EVN" classCode="OBS"> < templateId root="16.840.1.621975.10.20.22.4.2" /> <id nullFlavor="NA " /> <code codeSystem="local" code="TSH" displayName="THYROID STIMULATING HORMONE" /> <statusCode code="completed" /> < effectiveTime value="670472895337" /> <value unit="u[iU]/mL" xsi:type= "PQ" value="1.80" /> <referenceRange> <observationRange> <text>0.35-4.94</text> </observationRange> </ referenceRange> </observation> </component> </organizer> </entry > <entry> <organizer moodCode="EVN" classCode="BATTERY"> <templateId root="216.840.1.713267.10.20.22.4.1" /> <id nullFlavor="NA" /> <code codeSystem="local" code="2986-8" displayName="Serum or plasma testosterone measurement (mass/volume)" /> <statusCode code="completed" /> < component> <observation moodCode="EVN" classCode="OBS"> < templateId root="216.840.1.968365.10..22.4.2" /> <id nullFlavor="NA " /> <code codeSystem="local" code="44544-8" displayName="Testosterone [mass or moles/volume] in serum or plasma" /> <statusCode code= "completed" /> <effectiveTime value="474954430874" /> <value unit="%" xsi:type="PQ" value="196" /> <interpretationCode codeSystem="local" code="" /> <referenceRange> < observationRange> <text>241-347</text> </ observationRange> </referenceRange> </observation> </ component> </organizer> </entry> <entry> <organizer moodCode="EVN" classCode="BATTERY"> <templateId root="216.840.1.782571.10.20.22.4.1" /> <id nullFlavor="NA" /> <code codeSystem="local" code="KCE1749" displayName="[id number]" /> <statusCode code="completed" /> <component> <observation moodCode="EVN" classCode="OBS"> <templateId root= "12.02.840.1.142359.10.20.22.4.2" /> <id nullFlavor="NA" /> < code codeSystem="local" code="3094-0" displayName="Serum or plasma urea nitrogen measurement (mass/volume)" /> <statusCode code="completed" /> <effectiveTime value="785290774175" /> <value unit="mg/dL" xsi:type="PQ" value="18" /> <referenceRange> < observationRange> <text>7-18</text> </observationRange> </referenceRange> </observation> </component> < component> <observation moodCode="EVN" classCode="OBS"> < templateId root="2.16.840.1.349052.10.20.22.4.2" /> <id nullFlavor="NA " /> <code codeSystem="local" code="2160-0" displayName="Serum or plasma creatinine measurement (mass/volume)" /> <statusCode code= "completed" /> <effectiveTime value="330837410619" /> <value unit="mg/dL" xsi:type="PQ" value="1.21" /> <referenceRange> <observationRange> <text>0.60-1.30</text> </ observationRange> </referenceRange> </observation> </ component> <component> <observation moodCode="EVN" classCode="OBS"> <templateId root="2.16.840.1.042678.10.20.22.4.2" /> <id nullFlavor="NA" /> <code codeSystem="local" code="3097-3" displayName= "Serum or plasma urea nitrogen/creatinine mass ratio" /> <statusCode code="completed" /> <effectiveTime value="882280911322" /> < value unit="" xsi:type="PQ" value="15" /> <referenceRange> < observationRange> <text>NRG</text> </observationRange> </referenceRange> </observation> </component> < component> <observation moodCode="EVN" classCode="OBS"> < templateId root="216.840.1.114972.10.20.22.4.2" /> <id nullFlavor="NA " /> <code codeSystem="local" code="18761-7" displayName="Serum or plasma creatinine measurement with calculation of estimated glomerular filtration rate" /> <statusCode code="completed" /> < effectiveTime value="797415857823" /> <value unit="" xsi:type="PQ" value="58" /> <referenceRange> <observationRange> <text>NRG</text> </observationRange> </referenceRange> </observation> </component> </organizer> </entry> <entry> < organizer moodCode="EVN" classCode="BATTERY"> <templateId root= "216.840.1.138594.10.20.22.4.1" /> <id nullFlavor="NA" /> <code codeSystem="local" code="UFL4815" displayName="[id number]" /> <statusCode code ="completed" /> <component> <observation moodCode="EVN" classCode= "OBS"> <templateId root="216.840.1.655721.10.20.22.4.2" /> < id nullFlavor="NA" /> <code codeSystem="local" code="3094-0" displayName="Serum or plasma urea nitrogen measurement (mass/volume)" /> <statusCode code="completed" /> <effectiveTime value="667592609159" /> <value unit="mg/dL" xsi:type="PQ" value="15" /> < referenceRange> <observationRange> <text>7-18</text> </observationRange> </referenceRange> </observation> </component> <component> <observation moodCode="EVN" classCode= "OBS"> <templateId root="2.16.840.1.368085.10..22.4.2" /> < id nullFlavor="NA" /> <code codeSystem="local" code="2160-0" displayName="Serum or plasma creatinine measurement (mass/volume)" /> < statusCode code="completed" /> <effectiveTime value="430989459752" /> <value unit="mg/dL" xsi:type="PQ" value="1.23" /> < referenceRange> <observationRange> <text>0.60-1.30</text > </observationRange> </referenceRange> </observation > </component> <component> <observation moodCode="EVN" classCode="OBS"> <templateId root="216.840.1.968067.10..4.2" /> <id nullFlavor="NA" /> <code codeSystem="local" code="3097-3" displayName="Serum or plasma urea nitrogen/creatinine mass ratio" /> < statusCode code="completed" /> <effectiveTime value="635676016163" /> <value unit="" xsi:type="PQ" value="12" /> <referenceRange> <observationRange> <text>NRG</text> </ observationRange> </referenceRange> </observation> </ component> <component> <observation moodCode="EVN" classCode="OBS"> <templateId root="2.16.840.1.616572.10..22.4.2" /> <id nullFlavor="NA" /> <code codeSystem="local" code="29391-9" displayName= "Serum or plasma creatinine measurement with calculation of estimated glomerular filtration rate" /> <statusCode code="completed" /> <effectiveTime value="323863731236" /> <value unit="" xsi:type="PQ" value="57" /> <referenceRange> <observationRange> <text>NRG</text> </observationRange> </referenceRange> </observation> </component> </organizer> </entry> <entry> < organizer moodCode="EVN" classCode="BATTERY"> <templateId root= "12.02.840.1.808093.08.05.22.4.1" /> <id nullFlavor="NA" /> <code codeSystem="local" code="CBCD" displayName="CBC W/DIFF" /> <statusCode code ="completed" /> <component> <observation moodCode="EVN" classCode= "OBS"> <templateId root="12.02.840.1.626987.08.05.22.4.2" /> < id nullFlavor="NA" /> <code codeSystem="local" code="BA#" displayName= "BASOPHIL #" /> <statusCode code="completed" /> < effectiveTime value="213080537666" /> <value unit="k/cumm" xsi:type="PQ " value="0.0" /> <referenceRange> <observationRange> <text>0.0-0.2</text> </observationRange> </ referenceRange> </observation> </component> <component> <observation moodCode="EVN" classCode="OBS"> <templateId root= "12.02.840.1.652831.10..4.2" /> <id nullFlavor="NA" /> < code codeSystem="local" code="BA%" displayName="BASOPHIL %" /> <statusCode code="completed" /> <effectiveTime value="381669585108" /> <value unit="%" xsi:type="PQ" value="0.3" /> < referenceRange> <observationRange> <text>0-1</text> </observationRange> </referenceRange> </observation> </component> <component> <observation moodCode="EVN" classCode= "OBS"> <templateId root="216.840.1.541781.10..22.4.2" /> < id nullFlavor="NA" /> <code codeSystem="local" code="EO#" displayName= "EOSINOPHIL #" /> <statusCode code="completed" /> < effectiveTime value="966843082848" /> <value unit="k/cumm" xsi:type="PQ " value="0.1" /> <referenceRange> <observationRange> <text>0.1-0.5</text> </observationRange> </ referenceRange> </observation> </component> <component> <observation moodCode="EVN" classCode="OBS"> <templateId root= "16.840.1.673685.10...4.2" /> <id nullFlavor="NA" /> < code codeSystem="local" code="EO%" displayName="EOSINOPHIL %" /> <statusCode code="completed" /> <effectiveTime value="325526219284" /> <value unit="%" xsi:type="PQ" value="1.9" /> < interpretationCode codeSystem="local" code="*" /> <referenceRange> <observationRange> <text>2-4</text> </ observationRange> </referenceRange> </observation> </ component> <component> <observation moodCode="EVN" classCode="OBS"> <templateId root="16.840.1.043157.10..22.4.2" /> <id nullFlavor="NA" /> <code codeSystem="local" code="GR#" displayName= "GRANULOCYTE #" /> <statusCode code="completed" /> < effectiveTime value="" /> <value unit="k/cumm" xsi:type="PQ " value="4.0" /> <referenceRange> <observationRange> <text>2.0-9.0</text> </observationRange> </ referenceRange> </observation> </component> <component> <observation moodCode="EVN" classCode="OBS"> <templateId root= "2.16.840.1.326675.10...4.2" /> <id nullFlavor="NA" /> < code codeSystem="local" code="GR%" displayName="GRANULOCYTE %" /> <statusCode code="completed" /> <effectiveTime value="763242392554 " /> <value unit="%" xsi:type="PQ" value="59.1" /> < referenceRange> <observationRange> <text>50-75</text> </observationRange> </referenceRange> </observation> </component> <component> <observation moodCode="EVN" classCode= "OBS"> <templateId root="2.16.840.1.670233.10...4.2" /> < id nullFlavor="NA" /> <code codeSystem="local" code="LY#" displayName= "LYMPHOCYTE #" /> <statusCode code="completed" /> < effectiveTime value="945694994779" /> <value unit="k/cumm" xsi:type="PQ " value="2.1" /> <referenceRange> <observationRange> <text>1.0-4.0</text> </observationRange> </ referenceRange> </observation> </component> <component> <observation moodCode="EVN" classCode="OBS"> <templateId root= "216.840.1.021572.10.20.22.4.2" /> <id nullFlavor="NA" /> < code codeSystem="local" code="LY%" displayName="LYMPHOCYTE %" /> <statusCode code="completed" /> <effectiveTime value="" /> <value unit="%" xsi:type="PQ" value="30.7" /> < interpretationCode codeSystem="local" code="*" /> <referenceRange> <observationRange> <text>20-30</text> </ observationRange> </referenceRange> </observation> </ component> <component> <observation moodCode="EVN" classCode="OBS"> <templateId root="12.02.840.1.479558.10.4.2" /> <id nullFlavor="NA" /> <code codeSystem="local" code="MCH" displayName= "MEAN CELL HGB" /> <statusCode code="completed" /> < effectiveTime value="" /> <value unit="pg" xsi:type="PQ" value="30.7" /> <referenceRange> <observationRange> <text>27.0-33.0</text> </observationRange> </ referenceRange> </observation> </component> <component> <observation moodCode="EVN" classCode="OBS"> <templateId root= "16.840.1.623859.10.20.22.4.2" /> <id nullFlavor="NA" /> < code codeSystem="local" code="MCHC" displayName="MEAN CELL HGB CONCENTRATION" / > <statusCode code="completed" /> <effectiveTime value= "" /> <value unit="g/dL" xsi:type="PQ" value="34.6" /> <referenceRange> <observationRange> <text>32.0- 37.0</text> </observationRange> </referenceRange> </ observation> </component> <component> <observation moodCode= "EVN" classCode="OBS"> <templateId root="12.02.840.1.212217.10.20.22.4.2 " /> <id nullFlavor="NA" /> <code codeSystem="local" code="MCV " displayName="MEAN CELL VOLUME" /> <statusCode code="completed" /> <effectiveTime value="981030235694" /> <value unit="fl" xsi:type ="PQ" value="88.8" /> <referenceRange> <observationRange> <text>80.0-100.0</text> </observationRange> </ referenceRange> </observation> </component> <component> <observation moodCode="EVN" classCode="OBS"> <templateId root= "840.1.170501.10..4.2" /> <id nullFlavor="NA" /> < code codeSystem="local" code="MO#" displayName="MONOCYTE #" /> < statusCode code="completed" /> <effectiveTime value="167841855276" /> <value unit="k/cumm" xsi:type="PQ" value="0.5" /> < referenceRange> <observationRange> <text>0.1-1.0</text> </observationRange> </referenceRange> </observation > </component> <component> <observation moodCode="EVN" classCode="OBS"> <templateId root="12.02.840.1.564055.10.20.22.4.2" /> <id nullFlavor="NA" /> <code codeSystem="local" code="MO% " displayName="MONOCYTE %" /> <statusCode code="completed" /> <effectiveTime value="217517035807" /> <value unit="%" xsi: type="PQ" value="7.3" /> <interpretationCode codeSystem="local" code="* " /> <referenceRange> <observationRange> <text> 4-6</text> </observationRange> </referenceRange> </ observation> </component> <component> <observation moodCode= "EVN" classCode="OBS"> <templateId root="2.16.840.1.247342.10..22.4.2 " /> <id nullFlavor="NA" /> <code codeSystem="local" code= "MPVT" displayName="MEAN PLATELET VOLUME" /> <statusCode code= "completed" /> <effectiveTime value="502592299150" /> <value unit="fl" xsi:type="PQ" value="9.8" /> <referenceRange> < observationRange> <text>8.5-10.9</text> </ observationRange> </referenceRange> </observation> </ component> <component> <observation moodCode="EVN" classCode="OBS"> <templateId root="16.840.1.474156.10.20.22.4.2" /> <id nullFlavor="NA" /> <code codeSystem="local" code="RBC" displayName=" RED BLOOD CELL" /> <statusCode code="completed" /> < effectiveTime value="034732495228" /> <value unit="m/cumm" xsi:type="PQ " value="4.56" /> <referenceRange> <observationRange> <text>4.00-6.00</text> </observationRange> </ referenceRange> </observation> </component> <component> <observation moodCode="EVN" classCode="OBS"> <templateId root= "16.840.1.026464.10..22.4.2" /> <id nullFlavor="NA" /> < code codeSystem="local" code="RDW" displayName="RED CELL DISTRIBUTION WIDTH" /> <statusCode code="completed" /> <effectiveTime value= "" /> <value unit="%" xsi:type="PQ" value="14.4" /> <referenceRange> <observationRange> <text>11.0- 15.6</text> </observationRange> </referenceRange> </ observation> </component> <component> <observation moodCode= "EVN" classCode="OBS"> <templateId root="12.02.840.1.448006...4.2 " /> <id nullFlavor="NA" /> <code codeSystem="local" code="WBC " displayName="WHITE BLOOD CELL" /> <statusCode code="completed" /> <effectiveTime value="" /> <value unit="k/cumm" xsi: type="PQ" value="6.7" /> <referenceRange> <observationRange > <text>5.0-10.0</text> </observationRange> </ referenceRange> </observation> </component> <component> <observation moodCode="EVN" classCode="OBS"> <templateId root= "12.02.840.1.898970.10.2022.4.2" /> <id nullFlavor="NA" /> < code codeSystem="local" code="HGBT" displayName="HEMOGLOBIN" /> < statusCode code="completed" /> <effectiveTime value="726253373583" /> <value unit="gm/dL" xsi:type="PQ" value="14.0" /> < referenceRange> <observationRange> <text>14.0-18.0</text > </observationRange> </referenceRange> </observation > </component> <component> <observation moodCode="EVN" classCode="OBS"> <templateId root="216.840.1.362608.10..4.2" /> <id nullFlavor="NA" /> <code codeSystem="local" code="HCTT" displayName="HEMATOCRIT" /> <statusCode code="completed" /> < effectiveTime value="312269106796" /> <value unit="%" xsi:type="PQ " value="40.5" /> <referenceRange> <observationRange> <text>40.0-54.0</text> </observationRange> </ referenceRange> </observation> </component> <component> <observation moodCode="EVN" classCode="OBS"> <templateId root= "12.02.840.1.934076.08.05.22.4.2" /> <id nullFlavor="NA" /> < code codeSystem="local" code="PLTT" displayName="PLATELET COUNT" /> < statusCode code="completed" /> <effectiveTime value="773604371567" /> <value unit="k/cumm" xsi:type="PQ" value="197" /> < referenceRange> <observationRange> <text>150-400</text> </observationRange> </referenceRange> </observation > </component> <component> <observation moodCode="EVN" classCode="OBS"> <templateId root="12.02.840.1.907375...4.2" /> <id nullFlavor="NA" /> <code codeSystem="local" code="IG% " displayName="IMMATURE GRANULOCYTE %" /> <statusCode code= "completed" /> <effectiveTime value="439367842759" /> <value unit="%" xsi:type="PQ" value="0.7" /> <interpretationCode codeSystem="local" code="*" /> <referenceRange> < observationRange> <text>0.0-0.6</text> </ observationRange> </referenceRange> </observation> </ component> <component> <observation moodCode="EVN" classCode="OBS"> <templateId root="2.16.840.1.980921.10..22.4.2" /> <id nullFlavor="NA" /> <code codeSystem="local" code="NRBC%" displayName="NRBC %" /> <statusCode code="completed" /> < effectiveTime value="035779563864" /> <value unit="/100WBC" xsi:type= "PQ" value="0.0" /> <referenceRange> <observationRange> <text>0.0-0.0</text> </observationRange> </ referenceRange> </observation> </component> <component> <observation moodCode="EVN" classCode="OBS"> <templateId root= "2.16.840.1.313723.10.20.22.4.2" /> <id nullFlavor="NA" /> < code codeSystem="local" code="IG#" displayName="IMMATURE GRANULOCYTE #" /> <statusCode code="completed" /> <effectiveTime value="976353525644 " /> <value unit="k/cumm" xsi:type="PQ" value="0.05" /> < referenceRange> <observationRange> <text>0.00-0.09</text > </observationRange> </referenceRange> </observation > </component> </organizer> </entry> <entry> <organizer moodCode= "EVN" classCode="BATTERY"> <templateId root="216.840.1.089635.10...4.1 " /> <id nullFlavor="NA" /> <code codeSystem="local" code="PT" displayName="PROTHROMBIN TIME WITH INR" /> <statusCode code="completed" /> <component> <observation moodCode="EVN" classCode="OBS"> < templateId root="12.02.840.1.409544.08.05.22.4.2" /> <id nullFlavor="NA " /> <code codeSystem="local" code="INRX" displayName="INTERNATIONAL NORMAL RATIO" /> <statusCode code="completed" /> < effectiveTime value="" /> <value unit="" xsi:type="PQ" value="1.0" /> <referenceRange> <observationRange> <text>0.9-1.1</text> </observationRange> </ referenceRange> </observation> </component> <component> <observation moodCode="EVN" classCode="OBS"> <templateId root= "16.840.1.954295.08.05.22.4.2" /> <id nullFlavor="NA" /> < code codeSystem="local" code="PTPAT" displayName="PROTHROMBIN TIME" /> <statusCode code="completed" /> <effectiveTime value="" /> <value unit="sec" xsi:type="PQ" value="11.6" /> < referenceRange> <observationRange> <text>10.0-12.8</text > </observationRange> </referenceRange> </observation > </component> </organizer> </entry> <entry> <organizer moodCode= "EVN" classCode="BATTERY"> <templateId root="216.840.1.323959.08.05.22.4.1 " /> <id nullFlavor="NA" /> <code codeSystem="local" code="METAB" displayName="METABOLIC PANEL, BASIC" /> <statusCode code="completed" /> <component> <observation moodCode="EVN" classCode="OBS"> < templateId root="12.02.840.1.055291.08.05.22.4.2" /> <id nullFlavor="NA " /> <code codeSystem="local" code="K" displayName="POTASSIUM" /> <statusCode code="completed" /> <effectiveTime value="661109599679 " /> <value unit="mmol/L" xsi:type="PQ" value="4.0" /> < referenceRange> <observationRange> <text>3.5-5.3</text> </observationRange> </referenceRange> </observation > </component> <component> <observation moodCode="EVN" classCode="OBS"> <templateId root="840.1.791621.08.05.22.4.2" /> <id nullFlavor="NA" /> <code codeSystem="local" code="eGFR" displayName="EST GFR (MDRD)" /> <statusCode code="completed" /> <effectiveTime value="053117161436" /> <value unit="mL/min" xsi:type ="PQ" value="53" /> <interpretationCode codeSystem="local" code="*" /> <referenceRange> <observationRange> <text>&gt ; 59</text> </observationRange> </referenceRange> </ observation> </component> <component> <observation moodCode= "EVN" classCode="OBS"> <templateId root="12.02.840.1.898357.08.05.22.4.2 " /> <id nullFlavor="NA" /> <code codeSystem="local" code="GAP " displayName="ANION GAP" /> <statusCode code="completed" /> < effectiveTime value="958953340430" /> <value unit="mmol/L" xsi:type="PQ " value="5" /> <referenceRange> <observationRange> <text>5-15</text> </observationRange> </referenceRange > </observation> </component> <component> <observation moodCode="EVN" classCode="OBS"> <templateId root= "216.840.1.159124.10..22.4.2" /> <id nullFlavor="NA" /> < code codeSystem="local" code="eCrCl" displayName="EST CrCl (CG)" /> < statusCode code="completed" /> <effectiveTime value="112893756198" /> <value unit="mL/min" xsi:type="PQ" value="56" /> < interpretationCode codeSystem="local" code="*" /> <referenceRange> <observationRange> <text>> 59</text> </ observationRange> </referenceRange> </observation> </ component> <component> <observation moodCode="EVN" classCode="OBS"> <templateId root="216.840.1.486905.10.20.22.4.2" /> <id nullFlavor="NA" /> <code codeSystem="local" code="GLU" displayName= "GLUCOSE" /> <statusCode code="completed" /> <effectiveTime value="793342616013" /> <value unit="mg/dL" xsi:type="PQ" value="93" / > <referenceRange> <observationRange> <text>70- 99</text> </observationRange> </referenceRange> </ observation> </component> <component> <observation moodCode= "EVN" classCode="OBS"> <templateId root="216.840.1.015537.10.22.4.2 " /> <id nullFlavor="NA" /> <code codeSystem="local" code="CA " displayName="CALCIUM" /> <statusCode code="completed" /> < effectiveTime value="794175333481" /> <value unit="mg/dL" xsi:type="PQ " value="9.0" /> <referenceRange> <observationRange> <text>8.5-10.1</text> </observationRange> </ referenceRange> </observation> </component> <component> <observation moodCode="EVN" classCode="OBS"> <templateId root= "16.840.1.189912.10..4.2" /> <id nullFlavor="NA" /> < code codeSystem="local" code="BUN" displayName="BLOOD UREA NITROGEN" /> <statusCode code="completed" /> <effectiveTime value="499016501994" / > <value unit="mg/dL" xsi:type="PQ" value="19" /> < referenceRange> <observationRange> <text>7-20</text> </observationRange> </referenceRange> </observation> </component> <component> <observation moodCode="EVN" classCode= "OBS"> <templateId root="16.840.1.439757.08.05.22.4.2" /> < id nullFlavor="NA" /> <code codeSystem="local" code="CREAT" displayName ="CREATININE" /> <statusCode code="completed" /> < effectiveTime value="576382630181" /> <value unit="mg/dL" xsi:type="PQ " value="1.3" /> <referenceRange> <observationRange> <text>0.7-1.3</text> </observationRange> </ referenceRange> </observation> </component> <component> <observation moodCode="EVN" classCode="OBS"> <templateId root= "216.840.1.046854.10..22.4.2" /> <id nullFlavor="NA" /> < code codeSystem="local" code="NA" displayName="SODIUM" /> <statusCode code="completed" /> <effectiveTime value="" /> < value unit="mmol/L" xsi:type="PQ" value="140" /> <referenceRange> <observationRange> <text>135-148</text> </ observationRange> </referenceRange> </observation> </ component> <component> <observation moodCode="EVN" classCode="OBS"> <templateId root="216.840.1.788363...4.2" /> <id nullFlavor="NA" /> <code codeSystem="local" code="CL" displayName= "CHLORIDE" /> <statusCode code="completed" /> <effectiveTime value="" /> <value unit="mmol/L" xsi:type="PQ" value="107" /> <referenceRange> <observationRange> <text>98 -110</text> </observationRange> </referenceRange> </ observation> </component> <component> <observation moodCode= "EVN" classCode="OBS"> <templateId root="216.840.1.065852.10..22.4.2 " /> <id nullFlavor="NA" /> <code codeSystem="local" code="CO2 " displayName="CARBON DIOXIDE" /> <statusCode code="completed" /> <effectiveTime value="" /> <value unit="mmol/L" xsi: type="PQ" value="28" /> <referenceRange> <observationRange> <text>21-32</text> </observationRange> </ referenceRange> </observation> </component> </organizer> </entry > <entry> <organizer moodCode="EVN" classCode="BATTERY"> <templateId root="216.840.1.868176.10..22.4.1" /> <id nullFlavor="NA" /> <code codeSystem="local" code="HDLPRO" displayName="LIPID PANEL" /> <statusCode code="completed" /> <component> <observation moodCode="EVN" classCode="OBS"> <templateId root="216.840.1.836688...4.2" /> <id nullFlavor="NA" /> <code codeSystem="local" code="CHOL/HDL " displayName="CHOLESTEROL/HDL RATIO" /> <statusCode code="completed" / > <effectiveTime value="384911820735" /> <value unit="" xsi: type="PQ" value="3.7" /> <referenceRange> <observationRange > <text> < 5.0</text> </observationRange> </ referenceRange> </observation> </component> <component> <observation moodCode="EVN" classCode="OBS"> <templateId root= "16.840.1.765625.08.05.22.4.2" /> <id nullFlavor="NA" /> < code codeSystem="local" code="LDLX" displayName="LDL CHOLESTEROL" /> < statusCode code="completed" /> <effectiveTime value="116069503603" /> <value unit="mg/dL" xsi:type="PQ" value="87" /> < referenceRange> <observationRange> <text>< 100</text > </observationRange> </referenceRange> </observation > </component> <component> <observation moodCode="EVN" classCode="OBS"> <templateId root="216.840.1.264574.10..22.4.2" /> <id nullFlavor="NA" /> <code codeSystem="local" code="VLDL" displayName="VLDL CHOLESTEROL" /> <statusCode code="completed" /> <effectiveTime value="" /> <value unit="mg/dL" xsi: type="PQ" value="16" /> <referenceRange> <observationRange> <text>< 30</text> </observationRange> </ referenceRange> </observation> </component> <component> <observation moodCode="EVN" classCode="OBS"> <templateId root= "216.840.1.034636.10...4.2" /> <id nullFlavor="NA" /> < code codeSystem="local" code="TRIG" displayName="TRIGLYCERIDES" /> < statusCode code="completed" /> <effectiveTime value="" /> <value unit="mg/dL" xsi:type="PQ" value="80" /> < referenceRange> <observationRange> <text>< 150</text > </observationRange> </referenceRange> </observation > </component> <component> <observation moodCode="EVN" classCode="OBS"> <templateId root="16.840.1.378677.10..22.4.2" /> <id nullFlavor="NA" /> <code codeSystem="local" code="CHOL" displayName="CHOLESTEROL" /> <statusCode code="completed" /> < effectiveTime value="437174509811" /> <value unit="mg/dL" xsi:type="PQ " value="141" /> <referenceRange> <observationRange> <text>< 200</text> </observationRange> </ referenceRange> </observation> </component> <component> <observation moodCode="EVN" classCode="OBS"> <templateId root= "16.840.1.836870.1022.4.2" /> <id nullFlavor="NA" /> < code codeSystem="local" code="HDL" displayName="HDL CHOLESTEROL" /> < statusCode code="completed" /> <effectiveTime value="466925987850" /> <value unit="mg/dL" xsi:type="PQ" value="38" /> < interpretationCode codeSystem="local" code="*" /> <referenceRange> <observationRange> <text>> 39</text> </ observationRange> </referenceRange> </observation> </ component> </organizer> </entry> <entry> <organizer moodCode="EVN" classCode="BATTERY"> <templateId root="12.02.840.1.217591.10..4.1" /> <id nullFlavor="NA" /> <code codeSystem="local" code="METAB" displayName="METABOLIC PANEL, BASIC" /> <statusCode code="completed" /> <component> <observation moodCode="EVN" classCode="OBS"> < templateId root="12.02.840.1.017274.1022.4.2" /> <id nullFlavor="NA " /> <code codeSystem="local" code="K" displayName="POTASSIUM" /> <statusCode code="completed" /> <effectiveTime value="843565465354 " /> <value unit="mmol/L" xsi:type="PQ" value="3.5" /> < referenceRange> <observationRange> <text>3.5-5.3</text> </observationRange> </referenceRange> </observation > </component> <component> <observation moodCode="EVN" classCode="OBS"> <templateId root="216.840.1.245286.10..4.2" /> <id nullFlavor="NA" /> <code codeSystem="local" code="eGFR" displayName="EST GFR (MDRD)" /> <statusCode code="completed" /> <effectiveTime value="" /> <value unit="mL/min" xsi:type ="PQ" value="53" /> <interpretationCode codeSystem="local" code="*" /> <referenceRange> <observationRange> <text>&gt ; 59</text> </observationRange> </referenceRange> </ observation> </component> <component> <observation moodCode= "EVN" classCode="OBS"> <templateId root="16.840.1.048945.08.05.22.4.2 " /> <id nullFlavor="NA" /> <code codeSystem="local" code="GAP " displayName="ANION GAP" /> <statusCode code="completed" /> < effectiveTime value="" /> <value unit="mmol/L" xsi:type="PQ " value="10" /> <referenceRange> <observationRange> <text>5-15</text> </observationRange> </referenceRange > </observation> </component> <component> <observation moodCode="EVN" classCode="OBS"> <templateId root= "216.840.1.036707.10..4.2" /> <id nullFlavor="NA" /> < code codeSystem="local" code="eCrCl" displayName="EST CrCl (CG)" /> < statusCode code="completed" /> <effectiveTime value="620929165228" /> <value unit="mL/min" xsi:type="PQ" value="56" /> < interpretationCode codeSystem="local" code="*" /> <referenceRange> <observationRange> <text>> 59</text> </ observationRange> </referenceRange> </observation> </ component> <component> <observation moodCode="EVN" classCode="OBS"> <templateId root="12.02.840.1.229994.1022.4.2" /> <id nullFlavor="NA" /> <code codeSystem="local" code="GLU" displayName= "GLUCOSE" /> <statusCode code="completed" /> <effectiveTime value="" /> <value unit="mg/dL" xsi:type="PQ" value="96" / > <referenceRange> <observationRange> <text>70- 99</text> </observationRange> </referenceRange> </ observation> </component> <component> <observation moodCode= "EVN" classCode="OBS"> <templateId root="840.1.528919.08.05.22.4.2 " /> <id nullFlavor="NA" /> <code codeSystem="local" code="CA " displayName="CALCIUM" /> <statusCode code="completed" /> < effectiveTime value="" /> <value unit="mg/dL" xsi:type="PQ " value="9.1" /> <referenceRange> <observationRange> <text>8.5-10.1</text> </observationRange> </ referenceRange> </observation> </component> <component> <observation moodCode="EVN" classCode="OBS"> <templateId root= "12.02.840.1.983450.2022.4.2" /> <id nullFlavor="NA" /> < code codeSystem="local" code="BUN" displayName="BLOOD UREA NITROGEN" /> <statusCode code="completed" /> <effectiveTime value="" / > <value unit="mg/dL" xsi:type="PQ" value="19" /> < referenceRange> <observationRange> <text>7-20</text> </observationRange> </referenceRange> </observation> </component> <component> <observation moodCode="EVN" classCode= "OBS"> <templateId root="216.840.1.541683.10..22.4.2" /> < id nullFlavor="NA" /> <code codeSystem="local" code="CREAT" displayName ="CREATININE" /> <statusCode code="completed" /> < effectiveTime value="424089110701" /> <value unit="mg/dL" xsi:type="PQ " value="1.3" /> <referenceRange> <observationRange> <text>0.7-1.3</text> </observationRange> </ referenceRange> </observation> </component> <component> <observation moodCode="EVN" classCode="OBS"> <templateId root= "216.840.1.206585.10..22.4.2" /> <id nullFlavor="NA" /> < code codeSystem="local" code="NA" displayName="SODIUM" /> <statusCode code="completed" /> <effectiveTime value="094980847985" /> < value unit="mmol/L" xsi:type="PQ" value="143" /> <referenceRange> <observationRange> <text>135-148</text> </ observationRange> </referenceRange> </observation> </ component> <component> <observation moodCode="EVN" classCode="OBS"> <templateId root="2840.1.192548.08.05.22.4.2" /> <id nullFlavor="NA" /> <code codeSystem="local" code="CL" displayName= "CHLORIDE" /> <statusCode code="completed" /> <effectiveTime value="600637329359" /> <value unit="mmol/L" xsi:type="PQ" value="107" /> <referenceRange> <observationRange> <text>98 -110</text> </observationRange> </referenceRange> </ observation> </component> <component> <observation moodCode= "EVN" classCode="OBS"> <templateId root="840.1.869978.08.05.224.2 " /> <id nullFlavor="NA" /> <code codeSystem="local" code="CO2 " displayName="CARBON DIOXIDE" /> <statusCode code="completed" /> <effectiveTime value="065459103087" /> <value unit="mmol/L" xsi: type="PQ" value="26" /> <referenceRange> <observationRange> <text>21-32</text> </observationRange> </ referenceRange> </observation> </component> </organizer> </entry > <entry> <organizer moodCode="EVN" classCode="BATTERY"> <templateId root="840.1.932589.08.05.22.4.1" /> <id nullFlavor="NA" /> <code codeSystem="local" code="JBP205" displayName="TYPE/SCREEN" /> <statusCode code="completed" /> <component> <observation moodCode="EVN" classCode="OBS"> <templateId root="12.02.840.1.984392.22.4.2" /> <id nullFlavor="NA" /> <code codeSystem="local" code="Twz321" displayName="ABO/RH" /> <statusCode code="completed" /> < effectiveTime value="" /> <value unit="" xsi:type="PQ" value="O POSITIVE" /> <referenceRange> <observationRange> <text /> </observationRange> </referenceRange> </observation> </component> <component> <observation moodCode="EVN" classCode="OBS"> <templateId root= "12.02.840.1.252026.08.05.22.4.2" /> <id nullFlavor="NA" /> < code codeSystem="local" code="Uyb403" displayName="ANTIBODY SCREEN" /> <statusCode code="completed" /> <effectiveTime value="" /> <value unit="" xsi:type="PQ" value=" POSITIVE" /> < referenceRange> <observationRange> <text /> < /observationRange> </referenceRange> </observation> </ component> </organizer> </entry> <entry> <organizer moodCode="EVN" classCode="BATTERY"> <templateId root="840.1.386126.08.05.22.4.1" /> <id nullFlavor="NA" /> <code codeSystem="local" code="CBCD" displayName="CBC W/DIFF" /> <statusCode code="completed" /> <component > <observation moodCode="EVN" classCode="OBS"> <templateId root= "12.02.840.1.196130.08.05.22.4.2" /> <id nullFlavor="NA" /> < code codeSystem="local" code="BA#" displayName="BASOPHIL #" /> < statusCode code="completed" /> <effectiveTime value="607249348750" /> <value unit="k/cumm" xsi:type="PQ" value="0.0" /> < referenceRange> <observationRange> <text>0.0-0.2</text> </observationRange> </referenceRange> </observation > </component> <component> <observation moodCode="EVN" classCode="OBS"> <templateId root="12.02.840.1.657052.10.20.22.4.2" /> <id nullFlavor="NA" /> <code codeSystem="local" code="BA% " displayName="BASOPHIL %" /> <statusCode code="completed" /> <effectiveTime value="707611170384" /> <value unit="%" xsi: type="PQ" value="0.2" /> <referenceRange> <observationRange > <text>0-1</text> </observationRange> </ referenceRange> </observation> </component> <component> <observation moodCode="EVN" classCode="OBS"> <templateId root= "12.02.840.1.781439...4.2" /> <id nullFlavor="NA" /> < code codeSystem="local" code="EO#" displayName="EOSINOPHIL #" /> < statusCode code="completed" /> <effectiveTime value="422745671649" /> <value unit="k/cumm" xsi:type="PQ" value="0.0" /> < interpretationCode codeSystem="local" code="*" /> <referenceRange> <observationRange> <text>0.1-0.5</text> </ observationRange> </referenceRange> </observation> </ component> <component> <observation moodCode="EVN" classCode="OBS"> <templateId root="16.840.1.179646.10...4.2" /> <id nullFlavor="NA" /> <code codeSystem="local" code="EO%" displayName= "EOSINOPHIL %" /> <statusCode code="completed" /> < effectiveTime value="706986030428" /> <value unit="%" xsi:type="PQ " value="0.1" /> <interpretationCode codeSystem="local" code="*" /> <referenceRange> <observationRange> <text>2-4</ text> </observationRange> </referenceRange> </ observation> </component> <component> <observation moodCode= "EVN" classCode="OBS"> <templateId root="216.840.1.581311.08.05.224.2 " /> <id nullFlavor="NA" /> <code codeSystem="local" code="GR# " displayName="GRANULOCYTE #" /> <statusCode code="completed" /> <effectiveTime value="609432129345" /> <value unit="k/cumm" xsi: type="PQ" value="15.1" /> <interpretationCode codeSystem="local" code= "*" /> <referenceRange> <observationRange> < text>2.0-9.0</text> </observationRange> </referenceRange> </observation> </component> <component> <observation moodCode="EVN" classCode="OBS"> <templateId root= "216.840.1.740644.10.4.2" /> <id nullFlavor="NA" /> < code codeSystem="local" code="GR%" displayName="GRANULOCYTE %" /> <statusCode code="completed" /> <effectiveTime value="083264620456 " /> <value unit="%" xsi:type="PQ" value="81.0" /> < interpretationCode codeSystem="local" code="*" /> <referenceRange> <observationRange> <text>50-75</text> </ observationRange> </referenceRange> </observation> </ component> <component> <observation moodCode="EVN" classCode="OBS"> <templateId root="16.840.1.878933.10.20.22.4.2" /> <id nullFlavor="NA" /> <code codeSystem="local" code="LY#" displayName= "LYMPHOCYTE #" /> <statusCode code="completed" /> < effectiveTime value="379257735874" /> <value unit="k/cumm" xsi:type="PQ " value="2.3" /> <referenceRange> <observationRange> <text>1.0-4.0</text> </observationRange> </ referenceRange> </observation> </component> <component> <observation moodCode="EVN" classCode="OBS"> <templateId root= "12.02.840.1.828619.10...4.2" /> <id nullFlavor="NA" /> < code codeSystem="local" code="LY%" displayName="LYMPHOCYTE %" /> <statusCode code="completed" /> <effectiveTime value="712150919111" /> <value unit="%" xsi:type="PQ" value="12.4" /> < interpretationCode codeSystem="local" code="*" /> <referenceRange> <observationRange> <text>20-30</text> </ observationRange> </referenceRange> </observation> </ component> <component> <observation moodCode="EVN" classCode="OBS"> <templateId root="16.840.1.328981.10.20.22.4.2" /> <id nullFlavor="NA" /> <code codeSystem="local" code="MCH" displayName= "MEAN CELL HGB" /> <statusCode code="completed" /> < effectiveTime value="052266252168" /> <value unit="pg" xsi:type="PQ" value="30.9" /> <referenceRange> <observationRange> <text>27.0-33.0</text> </observationRange> </ referenceRange> </observation> </component> <component> <observation moodCode="EVN" classCode="OBS"> <templateId root= "216.840.1.617020.10.20.22.4.2" /> <id nullFlavor="NA" /> < code codeSystem="local" code="MCHC" displayName="MEAN CELL HGB CONCENTRATION" / > <statusCode code="completed" /> <effectiveTime value= "202675033991" /> <value unit="g/dL" xsi:type="PQ" value="34.2" /> <referenceRange> <observationRange> <text>32.0- 37.0</text> </observationRange> </referenceRange> </ observation> </component> <component> <observation moodCode= "EVN" classCode="OBS"> <templateId root="216.840.1.724051.10.20.22.4.2 " /> <id nullFlavor="NA" /> <code codeSystem="local" code="MCV " displayName="MEAN CELL VOLUME" /> <statusCode code="completed" /> <effectiveTime value="927710084605" /> <value unit="fl" xsi:type ="PQ" value="90.4" /> <referenceRange> <observationRange> <text>80.0-100.0</text> </observationRange> </ referenceRange> </observation> </component> <component> <observation moodCode="EVN" classCode="OBS"> <templateId root= "2.16.840.1.214044.10.20.22.4.2" /> <id nullFlavor="NA" /> < code codeSystem="local" code="MO#" displayName="MONOCYTE #" /> < statusCode code="completed" /> <effectiveTime value="504056236323" /> <value unit="k/cumm" xsi:type="PQ" value="1.1" /> < interpretationCode codeSystem="local" code="*" /> <referenceRange> <observationRange> <text>0.1-1.0</text> </ observationRange> </referenceRange> </observation> </ component> <component> <observation moodCode="EVN" classCode="OBS"> <templateId root="12.02.840.1.791762..22.4.2" /> <id nullFlavor="NA" /> <code codeSystem="local" code="MO%" displayName= "MONOCYTE %" /> <statusCode code="completed" /> < effectiveTime value="769751001217" /> <value unit="%" xsi:type="PQ " value="5.7" /> <referenceRange> <observationRange> <text>4-6</text> </observationRange> </referenceRange > </observation> </component> <component> <observation moodCode="EVN" classCode="OBS"> <templateId root= "12.02.840.1.510652.10.22.4.2" /> <id nullFlavor="NA" /> < code codeSystem="local" code="MPVT" displayName="MEAN PLATELET VOLUME" /> <statusCode code="completed" /> <effectiveTime value="582801936480 " /> <value unit="fl" xsi:type="PQ" value="10.3" /> < referenceRange> <observationRange> <text>8.5-10.9</text > </observationRange> </referenceRange> </observation > </component> <component> <observation moodCode="EVN" classCode="OBS"> <templateId root="216.840.1.767497.10.20.22.4.2" /> <id nullFlavor="NA" /> <code codeSystem="local" code="RBC" displayName="RED BLOOD CELL" /> <statusCode code="completed" /> <effectiveTime value="141842618763" /> <value unit="m/cumm" xsi:type ="PQ" value="3.85" /> <interpretationCode codeSystem="local" code="*" / > <referenceRange> <observationRange> <text> 4.00-6.00</text> </observationRange> </referenceRange> </observation> </component> <component> <observation moodCode="EVN" classCode="OBS"> <templateId root= "840.1.369233.10..4.2" /> <id nullFlavor="NA" /> < code codeSystem="local" code="RDW" displayName="RED CELL DISTRIBUTION WIDTH" /> <statusCode code="completed" /> <effectiveTime value= "416789823195" /> <value unit="%" xsi:type="PQ" value="13.8" /> <referenceRange> <observationRange> <text>11.0- 15.6</text> </observationRange> </referenceRange> </ observation> </component> <component> <observation moodCode= "EVN" classCode="OBS"> <templateId root="16.840.1.316681.10.20.22.4.2 " /> <id nullFlavor="NA" /> <code codeSystem="local" code="WBC " displayName="WHITE BLOOD CELL" /> <statusCode code="completed" /> <effectiveTime value="966118737390" /> <value unit="k/cumm" xsi: type="PQ" value="18.7" /> <interpretationCode codeSystem="local" code= "*" /> <referenceRange> <observationRange> < text>5.0-10.0</text> </observationRange> </referenceRange> </observation> </component> <component> <observation moodCode="EVN" classCode="OBS"> <templateId root= "2.16.840.1.369400.10.20.22.4.2" /> <id nullFlavor="NA" /> < code codeSystem="local" code="HGBT" displayName="HEMOGLOBIN" /> < statusCode code="completed" /> <effectiveTime value="722454307284" /> <value unit="gm/dL" xsi:type="PQ" value="11.9" /> < interpretationCode codeSystem="local" code="*" /> <referenceRange> <observationRange> <text>14.0-18.0</text> </ observationRange> </referenceRange> </observation> </ component> <component> <observation moodCode="EVN" classCode="OBS"> <templateId root="2.16.840.1.453475.10.20.22.4.2" /> <id nullFlavor="NA" /> <code codeSystem="local" code="HCTT" displayName= "HEMATOCRIT" /> <statusCode code="completed" /> < effectiveTime value="647764125912" /> <value unit="%" xsi:type="PQ " value="34.8" /> <interpretationCode codeSystem="local" code="*" /> <referenceRange> <observationRange> <text>40.0- 54.0</text> </observationRange> </referenceRange> </ observation> </component> <component> <observation moodCode= "EVN" classCode="OBS"> <templateId root="2.16.840.1.374069.10..4.2 " /> <id nullFlavor="NA" /> <code codeSystem="local" code= "NRBC%" displayName="NRBC %" /> <statusCode code="completed" / > <effectiveTime value="583724490525" /> <value unit="/100WBC " xsi:type="PQ" value="0.0" /> <referenceRange> < observationRange> <text>0.0-0.0</text> </ observationRange> </referenceRange> </observation> </ component> <component> <observation moodCode="EVN" classCode="OBS"> <templateId root="12.02.840.1.196091.08.05.224.2" /> <id nullFlavor="NA" /> <code codeSystem="local" code="PLTT" displayName= "PLATELET COUNT" /> <statusCode code="completed" /> < effectiveTime value="723143576871" /> <value unit="k/cumm" xsi:type="PQ " value="277" /> <referenceRange> <observationRange> <text>150-400</text> </observationRange> </ referenceRange> </observation> </component> <component> <observation moodCode="EVN" classCode="OBS"> <templateId root= "216.840.1.993787.10..4.2" /> <id nullFlavor="NA" /> < code codeSystem="local" code="IG%" displayName="IMMATURE GRANULOCYTE %" /> <statusCode code="completed" /> <effectiveTime value= "553604434751" /> <value unit="%" xsi:type="PQ" value="0.6" /> <referenceRange> <observationRange> <text>0.0-0.6< /text> </observationRange> </referenceRange> </ observation> </component> <component> <observation moodCode= "EVN" classCode="OBS"> <templateId root="840.1.147040.08.05.22.4.2 " /> <id nullFlavor="NA" /> <code codeSystem="local" code="IG# " displayName="IMMATURE GRANULOCYTE #" /> <statusCode code="completed" /> <effectiveTime value="344296701703" /> <value unit="k/cumm " xsi:type="PQ" value="0.12" /> <interpretationCode codeSystem="local" code="*" /> <referenceRange> <observationRange> <text>0.00-0.09</text> </observationRange> </ referenceRange> </observation> </component> </organizer> </entry > <entry> <organizer moodCode="EVN" classCode="BATTERY"> <templateId root="840.1.300595.08.05.22.4.1" /> <id nullFlavor="NA" /> <code codeSystem="local" code="PT" displayName="PROTHROMBIN TIME WITH INR" /> < statusCode code="completed" /> <component> <observation moodCode= "EVN" classCode="OBS"> <templateId root="840.1.799201.08.05.22.4.2 " /> <id nullFlavor="NA" /> <code codeSystem="local" code= "INRX" displayName="INTERNATIONAL NORMAL RATIO" /> <statusCode code= "completed" /> <effectiveTime value="245968668391" /> <value unit="" xsi:type="PQ" value="1.1" /> <referenceRange> < observationRange> <text>0.9-1.1</text> </ observationRange> </referenceRange> </observation> </ component> <component> <observation moodCode="EVN" classCode="OBS"> <templateId root="12.02.840.1.477104.22.4.2" /> <id nullFlavor="NA" /> <code codeSystem="local" code="PTPAT" displayName= "PROTHROMBIN TIME" /> <statusCode code="completed" /> < effectiveTime value="006023143151" /> <value unit="sec" xsi:type="PQ" value="12.3" /> <referenceRange> <observationRange> <text>10.0-12.8</text> </observationRange> </ referenceRange> </observation> </component> </organizer> </entry > <entry> <organizer moodCode="EVN" classCode="BATTERY"> <templateId root="12.02.840.1.251652.22.4.1" /> <id nullFlavor="NA" /> <code codeSystem="local" code="METABC" displayName="METABOLIC PANEL, COMPREHN" /> <statusCode code="completed" /> <component> <observation moodCode= "EVN" classCode="OBS"> <templateId root="12.02.840.1.355247.22.4.2 " /> <id nullFlavor="NA" /> <code codeSystem="local" code="K" displayName="POTASSIUM" /> <statusCode code="completed" /> < effectiveTime value="443138850298" /> <value unit="mmol/L" xsi:type="PQ " value="4.5" /> <referenceRange> <observationRange> <text>3.5-5.3</text> </observationRange> </ referenceRange> </observation> </component> <component> <observation moodCode="EVN" classCode="OBS"> <templateId root= "12.02.840.1.444953.10.20.22.4.2" /> <id nullFlavor="NA" /> < code codeSystem="local" code="eGFR" displayName="EST GFR (MDRD)" /> < statusCode code="completed" /> <effectiveTime value="532270204971" /> <value unit="mL/min" xsi:type="PQ" value="49" /> < interpretationCode codeSystem="local" code="*" /> <referenceRange> <observationRange> <text>> 59</text> </ observationRange> </referenceRange> </observation> </ component> <component> <observation moodCode="EVN" classCode="OBS"> <templateId root="12.02.840.1.675311.10...4.2" /> <id nullFlavor="NA" /> <code codeSystem="local" code="GAP" displayName= "ANION GAP" /> <statusCode code="completed" /> <effectiveTime value="371172811063" /> <value unit="mmol/L" xsi:type="PQ" value="17" / > <interpretationCode codeSystem="local" code="*" /> < referenceRange> <observationRange> <text>5-15</text> </observationRange> </referenceRange> </observation> </component> <component> <observation moodCode="EVN" classCode= "OBS"> <templateId root="12.02.840.1.132784.10.20.22.4.2" /> < id nullFlavor="NA" /> <code codeSystem="local" code="eCrCl" displayName ="EST CrCl (CG)" /> <statusCode code="completed" /> < effectiveTime value="428026785961" /> <value unit="mL/min" xsi:type="PQ " value="50" /> <interpretationCode codeSystem="local" code="*" /> <referenceRange> <observationRange> <text>> 59< /text> </observationRange> </referenceRange> </ observation> </component> <component> <observation moodCode= "EVN" classCode="OBS"> <templateId root="2.16.840.1.081425.10..22.4.2 " /> <id nullFlavor="NA" /> <code codeSystem="local" code="GLU " displayName="GLUCOSE" /> <statusCode code="completed" /> < effectiveTime value="957345415639" /> <value unit="mg/dL" xsi:type="PQ " value="179" /> <interpretationCode codeSystem="local" code="*" /> <referenceRange> <observationRange> <text>70-99</ text> </observationRange> </referenceRange> </ observation> </component> <component> <observation moodCode= "EVN" classCode="OBS"> <templateId root="216.840.1.256957.10..22.4.2 " /> <id nullFlavor="NA" /> <code codeSystem="local" code="CA " displayName="CALCIUM" /> <statusCode code="completed" /> < effectiveTime value="490448525612" /> <value unit="mg/dL" xsi:type="PQ " value="8.6" /> <referenceRange> <observationRange> <text>8.5-10.1</text> </observationRange> </ referenceRange> </observation> </component> <component> <observation moodCode="EVN" classCode="OBS"> <templateId root= "216.840.1.351802.10..4.2" /> <id nullFlavor="NA" /> < code codeSystem="local" code="BUN" displayName="BLOOD UREA NITROGEN" /> <statusCode code="completed" /> <effectiveTime value="792179741998" / > <value unit="mg/dL" xsi:type="PQ" value="24" /> < interpretationCode codeSystem="local" code="*" /> <referenceRange> <observationRange> <text>7-20</text> </ observationRange> </referenceRange> </observation> </ component> <component> <observation moodCode="EVN" classCode="OBS"> <templateId root="16.840.1.390988.08.05.22.4.2" /> <id nullFlavor="NA" /> <code codeSystem="local" code="CREAT" displayName= "CREATININE" /> <statusCode code="completed" /> < effectiveTime value="966207322338" /> <value unit="mg/dL" xsi:type="PQ " value="1.4" /> <interpretationCode codeSystem="local" code="*" /> <referenceRange> <observationRange> <text>0.7-1.3 </text> </observationRange> </referenceRange> </ observation> </component> <component> <observation moodCode= "EVN" classCode="OBS"> <templateId root="216.840.1.582051.10..4.2 " /> <id nullFlavor="NA" /> <code codeSystem="local" code="NA " displayName="SODIUM" /> <statusCode code="completed" /> < effectiveTime value="681724278495" /> <value unit="mmol/L" xsi:type="PQ " value="142" /> <referenceRange> <observationRange> <text>135-148</text> </observationRange> </ referenceRange> </observation> </component> <component> <observation moodCode="EVN" classCode="OBS"> <templateId root= "216.840.1.300381.10..22.4.2" /> <id nullFlavor="NA" /> < code codeSystem="local" code="CL" displayName="CHLORIDE" /> < statusCode code="completed" /> <effectiveTime value="549404214069" /> <value unit="mmol/L" xsi:type="PQ" value="106" /> < referenceRange> <observationRange> <text>98-110</text> </observationRange> </referenceRange> </observation> </component> <component> <observation moodCode="EVN" classCode ="OBS"> <templateId root="12.02.840.1.788273.10...4.2" /> < id nullFlavor="NA" /> <code codeSystem="local" code="AST" displayName= "AST/SGOT" /> <statusCode code="completed" /> <effectiveTime value="534946608295" /> <value unit="Units/L" xsi:type="PQ" value="22" /> <referenceRange> <observationRange> <text>10 -37</text> </observationRange> </referenceRange> </ observation> </component> <component> <observation moodCode= "EVN" classCode="OBS"> <templateId root="12.02.840.1.739127.10.20.22.4.2 " /> <id nullFlavor="NA" /> <code codeSystem="local" code="ALT " displayName="ALT/SGPT" /> <statusCode code="completed" /> < effectiveTime value="008591063577" /> <value unit="Units/L" xsi:type= "PQ" value="33" /> <referenceRange> <observationRange> <text>< 66</text> </observationRange> </ referenceRange> </observation> </component> <component> <observation moodCode="EVN" classCode="OBS"> <templateId root= "12.02.840.1.601252.102022.4.2" /> <id nullFlavor="NA" /> < code codeSystem="local" code="CO2" displayName="CARBON DIOXIDE" /> < statusCode code="completed" /> <effectiveTime value="543717853424" /> <value unit="mmol/L" xsi:type="PQ" value="19" /> < interpretationCode codeSystem="local" code="*" /> <referenceRange> <observationRange> <text>21-32</text> </ observationRange> </referenceRange> </observation> </ component> <component> <observation moodCode="EVN" classCode="OBS"> <templateId root="16.840.1.024046.10.2022.4.2" /> <id nullFlavor="NA" /> <code codeSystem="local" code="TP" displayName= "TOTAL PROTEIN" /> <statusCode code="completed" /> < effectiveTime value="675201513189" /> <value unit="gm/dL" xsi:type="PQ " value="6.6" /> <referenceRange> <observationRange> <text>6.4-8.2</text> </observationRange> </ referenceRange> </observation> </component> <component> <observation moodCode="EVN" classCode="OBS"> <templateId root= "12.02.840.1.631644.22.4.2" /> <id nullFlavor="NA" /> < code codeSystem="local" code="ALB" displayName="ALBUMIN" /> < statusCode code="completed" /> <effectiveTime value="339439633572" /> <value unit="gm/dL" xsi:type="PQ" value="3.4" /> < referenceRange> <observationRange> <text>3.4-5.0</text> </observationRange> </referenceRange> </observation > </component> <component> <observation moodCode="EVN" classCode="OBS"> <templateId root="12.02.840.1.739440.08.05.22.4.2" /> <id nullFlavor="NA" /> <code codeSystem="local" code="BILTOT" displayName="BILI TOTAL" /> <statusCode code="completed" /> < effectiveTime value="498989531692" /> <value unit="mg/dL" xsi:type="PQ " value="1.2" /> <interpretationCode codeSystem="local" code="*" /> <referenceRange> <observationRange> <text>0.0-1.0 </text> </observationRange> </referenceRange> </ observation> </component> <component> <observation moodCode= "EVN" classCode="OBS"> <templateId root="12.02.840.1.161356.1022.4.2 " /> <id nullFlavor="NA" /> <code codeSystem="local" code= "ALKP" displayName="ALKALINE PHOSPHATASE TOTAL" /> <statusCode code= "completed" /> <effectiveTime value="530083330756" /> <value unit="IU/L" xsi:type="PQ" value="67" /> <referenceRange> < observationRange> <text>45-117</text> </observationRange > </referenceRange> </observation> </component> </ organizer> </entry> <entry> <organizer moodCode="EVN" classCode="BATTERY"> <templateId root="216.840.1.787444.10..22.4.1" /> <id nullFlavor= "NA" /> <code codeSystem="local" code="CBC" displayName="CBC" /> < statusCode code="completed" /> <component> <observation moodCode= "EVN" classCode="OBS"> <templateId root="216.840.1.538498.10..22.4.2 " /> <id nullFlavor="NA" /> <code codeSystem="local" code="MCH " displayName="MEAN CELL HGB" /> <statusCode code="completed" /> <effectiveTime value="" /> <value unit="pg" xsi:type= "PQ" value="31.1" /> <referenceRange> <observationRange> <text>27.0-33.0</text> </observationRange> </ referenceRange> </observation> </component> <component> <observation moodCode="EVN" classCode="OBS"> <templateId root= "216.840.1.404476.10..22.4.2" /> <id nullFlavor="NA" /> < code codeSystem="local" code="MCHC" displayName="MEAN CELL HGB CONCENTRATION" / > <statusCode code="completed" /> <effectiveTime value= "822816626619" /> <value unit="g/dL" xsi:type="PQ" value="34.9" /> <referenceRange> <observationRange> <text>32.0- 37.0</text> </observationRange> </referenceRange> </ observation> </component> <component> <observation moodCode= "EVN" classCode="OBS"> <templateId root="12.02.840.1.239370.10.2022.4.2 " /> <id nullFlavor="NA" /> <code codeSystem="local" code="MCV " displayName="MEAN CELL VOLUME" /> <statusCode code="completed" /> <effectiveTime value="008825453258" /> <value unit="fl" xsi:type ="PQ" value="89.2" /> <referenceRange> <observationRange> <text>80.0-100.0</text> </observationRange> </ referenceRange> </observation> </component> <component> <observation moodCode="EVN" classCode="OBS"> <templateId root= "840.1.012093.102022.4.2" /> <id nullFlavor="NA" /> < code codeSystem="local" code="MPVT" displayName="MEAN PLATELET VOLUME" /> <statusCode code="completed" /> <effectiveTime value="866135141270 " /> <value unit="fl" xsi:type="PQ" value="9.9" /> < referenceRange> <observationRange> <text>8.5-10.9</text > </observationRange> </referenceRange> </observation > </component> <component> <observation moodCode="EVN" classCode="OBS"> <templateId root="12.02.840.1.665790.10.20.22.4.2" /> <id nullFlavor="NA" /> <code codeSystem="local" code="RBC" displayName="RED BLOOD CELL" /> <statusCode code="completed" /> <effectiveTime value="508884996844" /> <value unit="m/cumm" xsi:type ="PQ" value="3.34" /> <interpretationCode codeSystem="local" code="*" / > <referenceRange> <observationRange> <text> 4.00-6.00</text> </observationRange> </referenceRange> </observation> </component> <component> <observation moodCode="EVN" classCode="OBS"> <templateId root= "216.840.1.133978.10.20.22.4.2" /> <id nullFlavor="NA" /> < code codeSystem="local" code="RDW" displayName="RED CELL DISTRIBUTION WIDTH" /> <statusCode code="completed" /> <effectiveTime value= "580158253834" /> <value unit="%" xsi:type="PQ" value="13.9" /> <referenceRange> <observationRange> <text>11.0- 15.6</text> </observationRange> </referenceRange> </ observation> </component> <component> <observation moodCode= "EVN" classCode="OBS"> <templateId root="12.02.840.1.556543.10..22.4.2 " /> <id nullFlavor="NA" /> <code codeSystem="local" code="WBC " displayName="WHITE BLOOD CELL" /> <statusCode code="completed" /> <effectiveTime value="617270769667" /> <value unit="k/cumm" xsi: type="PQ" value="15.6" /> <interpretationCode codeSystem="local" code= "*" /> <referenceRange> <observationRange> < text>5.0-10.0</text> </observationRange> </referenceRange> </observation> </component> <component> <observation moodCode="EVN" classCode="OBS"> <templateId root= "12.02.840.1.341436.10.20.22.4.2" /> <id nullFlavor="NA" /> < code codeSystem="local" code="HGBT" displayName="HEMOGLOBIN" /> < statusCode code="completed" /> <effectiveTime value="011839717519" /> <value unit="gm/dL" xsi:type="PQ" value="10.4" /> < interpretationCode codeSystem="local" code="*" /> <referenceRange> <observationRange> <text>14.0-18.0</text> </ observationRange> </referenceRange> </observation> </ component> <component> <observation moodCode="EVN" classCode="OBS"> <templateId root="2.16.840.1.341167.10..4.2" /> <id nullFlavor="NA" /> <code codeSystem="local" code="HCTT" displayName= "HEMATOCRIT" /> <statusCode code="completed" /> < effectiveTime value="" /> <value unit="%" xsi:type="PQ " value="29.8" /> <interpretationCode codeSystem="local" code="*" /> <referenceRange> <observationRange> <text>40.0- 54.0</text> </observationRange> </referenceRange> </ observation> </component> <component> <observation moodCode= "EVN" classCode="OBS"> <templateId root="2.16.840.1.150269.10.2022.4.2 " /> <id nullFlavor="NA" /> <code codeSystem="local" code= "NRBC%" displayName="NRBC %" /> <statusCode code="completed" / > <effectiveTime value="" /> <value unit="/100WBC " xsi:type="PQ" value="0.0" /> <referenceRange> < observationRange> <text>0.0-0.0</text> </ observationRange> </referenceRange> </observation> </ component> <component> <observation moodCode="EVN" classCode="OBS"> <templateId root="216.840.1.809772.10.22.4.2" /> <id nullFlavor="NA" /> <code codeSystem="local" code="PLTT" displayName= "PLATELET COUNT" /> <statusCode code="completed" /> < effectiveTime value="022856795838" /> <value unit="k/cumm" xsi:type="PQ " value="160" /> <referenceRange> <observationRange> <text>150-400</text> </observationRange> </ referenceRange> </observation> </component> </organizer> </entry > <entry> <organizer moodCode="EVN" classCode="BATTERY"> <templateId root="216.840.1.677470.10.22.4.1" /> <id nullFlavor="NA" /> <code codeSystem="local" code="CBCD" displayName="CBC W/DIFF" /> <statusCode code ="completed" /> <component> <observation moodCode="EVN" classCode= "OBS"> <templateId root="2.16.840.1.845744.10..22.4.2" /> < id nullFlavor="NA" /> <code codeSystem="local" code="BA#" displayName= "BASOPHIL #" /> <statusCode code="completed" /> < effectiveTime value="668923754689" /> <value unit="k/cumm" xsi:type="PQ " value="0.0" /> <referenceRange> <observationRange> <text>0.0-0.2</text> </observationRange> </ referenceRange> </observation> </component> <component> <observation moodCode="EVN" classCode="OBS"> <templateId root= "16.840.1.291188.10.20.22.4.2" /> <id nullFlavor="NA" /> < code codeSystem="local" code="BA%" displayName="BASOPHIL %" /> <statusCode code="completed" /> <effectiveTime value="010326989926" /> <value unit="%" xsi:type="PQ" value="0.2" /> < referenceRange> <observationRange> <text>0-1</text> </observationRange> </referenceRange> </observation> </component> <component> <observation moodCode="EVN" classCode= "OBS"> <templateId root="12.02.840.1.006890.10.22.4.2" /> < id nullFlavor="NA" /> <code codeSystem="local" code="EO#" displayName= "EOSINOPHIL #" /> <statusCode code="completed" /> < effectiveTime value="899835218753" /> <value unit="k/cumm" xsi:type="PQ " value="0.0" /> <interpretationCode codeSystem="local" code="*" /> <referenceRange> <observationRange> <text>0.1-0.5 </text> </observationRange> </referenceRange> </ observation> </component> <component> <observation moodCode= "EVN" classCode="OBS"> <templateId root="16.840.1.810023.10.2022.4.2 " /> <id nullFlavor="NA" /> <code codeSystem="local" code="EO& #37;" displayName="EOSINOPHIL %" /> <statusCode code="completed" / > <effectiveTime value="594685973697" /> <value unit="%" xsi:type="PQ" value="0.1" /> <interpretationCode codeSystem="local" code="*" /> <referenceRange> <observationRange> <text>2-4</text> </observationRange> </referenceRange> </observation> </component> <component> <observation moodCode="EVN" classCode="OBS"> <templateId root= "216.840.1.440259.102022.4.2" /> <id nullFlavor="NA" /> < code codeSystem="local" code="GR#" displayName="GRANULOCYTE #" /> < statusCode code="completed" /> <effectiveTime value="506023113680" /> <value unit="k/cumm" xsi:type="PQ" value="10.7" /> < interpretationCode codeSystem="local" code="*" /> <referenceRange> <observationRange> <text>2.0-9.0</text> </ observationRange> </referenceRange> </observation> </ component> <component> <observation moodCode="EVN" classCode="OBS"> <templateId root="216.840.1.843408.10.20.22.4.2" /> <id nullFlavor="NA" /> <code codeSystem="local" code="GR%" displayName= "GRANULOCYTE %" /> <statusCode code="completed" /> < effectiveTime value="821502413387" /> <value unit="%" xsi:type="PQ " value="79.2" /> <interpretationCode codeSystem="local" code="*" /> <referenceRange> <observationRange> <text>50-75< /text> </observationRange> </referenceRange> </ observation> </component> <component> <observation moodCode= "EVN" classCode="OBS"> <templateId root="12.02.840.1.667036.10.20.22.4.2 " /> <id nullFlavor="NA" /> <code codeSystem="local" code="LY# " displayName="LYMPHOCYTE #" /> <statusCode code="completed" /> <effectiveTime value="784122089956" /> <value unit="k/cumm" xsi:type ="PQ" value="2.0" /> <referenceRange> <observationRange> <text>1.0-4.0</text> </observationRange> </ referenceRange> </observation> </component> <component> <observation moodCode="EVN" classCode="OBS"> <templateId root= "12.02.840.1.252313.102022.4.2" /> <id nullFlavor="NA" /> < code codeSystem="local" code="LY%" displayName="LYMPHOCYTE %" /> <statusCode code="completed" /> <effectiveTime value="781888028086" /> <value unit="%" xsi:type="PQ" value="14.7" /> < interpretationCode codeSystem="local" code="*" /> <referenceRange> <observationRange> <text>20-30</text> </ observationRange> </referenceRange> </observation> </ component> <component> <observation moodCode="EVN" classCode="OBS"> <templateId root="12.02.840.1.745298.10.2022.4.2" /> <id nullFlavor="NA" /> <code codeSystem="local" code="MCH" displayName= "MEAN CELL HGB" /> <statusCode code="completed" /> < effectiveTime value="498490532504" /> <value unit="pg" xsi:type="PQ" value="30.9" /> <referenceRange> <observationRange> <text>27.0-33.0</text> </observationRange> </ referenceRange> </observation> </component> <component> <observation moodCode="EVN" classCode="OBS"> <templateId root= "12.02.840.1.171047.10.20.22.4.2" /> <id nullFlavor="NA" /> < code codeSystem="local" code="MCHC" displayName="MEAN CELL HGB CONCENTRATION" / > <statusCode code="completed" /> <effectiveTime value= "050886441040" /> <value unit="g/dL" xsi:type="PQ" value="33.8" /> <referenceRange> <observationRange> <text>32.0- 37.0</text> </observationRange> </referenceRange> </ observation> </component> <component> <observation moodCode= "EVN" classCode="OBS"> <templateId root="840.1.269924.10.2022.4.2 " /> <id nullFlavor="NA" /> <code codeSystem="local" code="MCV " displayName="MEAN CELL VOLUME" /> <statusCode code="completed" /> <effectiveTime value="443237731161" /> <value unit="fl" xsi:type ="PQ" value="91.2" /> <referenceRange> <observationRange> <text>80.0-100.0</text> </observationRange> </ referenceRange> </observation> </component> <component> <observation moodCode="EVN" classCode="OBS"> <templateId root= "840.1.749699.10.20.22.4.2" /> <id nullFlavor="NA" /> < code codeSystem="local" code="MO#" displayName="MONOCYTE #" /> < statusCode code="completed" /> <effectiveTime value="542483186238" /> <value unit="k/cumm" xsi:type="PQ" value="0.7" /> < referenceRange> <observationRange> <text>0.1-1.0</text> </observationRange> </referenceRange> </observation > </component> <component> <observation moodCode="EVN" classCode="OBS"> <templateId root="216.840.1.128390.10...4.2" /> <id nullFlavor="NA" /> <code codeSystem="local" code="MO% " displayName="MONOCYTE %" /> <statusCode code="completed" /> <effectiveTime value="014510755065" /> <value unit="%" xsi: type="PQ" value="5.3" /> <referenceRange> <observationRange > <text>4-6</text> </observationRange> </ referenceRange> </observation> </component> <component> <observation moodCode="EVN" classCode="OBS"> <templateId root= "216.840.1.840836.10..22.4.2" /> <id nullFlavor="NA" /> < code codeSystem="local" code="MPVT" displayName="MEAN PLATELET VOLUME" /> <statusCode code="completed" /> <effectiveTime value="371364468149 " /> <value unit="fl" xsi:type="PQ" value="10.1" /> < referenceRange> <observationRange> <text>8.5-10.9</text > </observationRange> </referenceRange> </observation > </component> <component> <observation moodCode="EVN" classCode="OBS"> <templateId root="216.840.1.556440.08.05.22.4.2" /> <id nullFlavor="NA" /> <code codeSystem="local" code="RBC" displayName="RED BLOOD CELL" /> <statusCode code="completed" /> <effectiveTime value="894359768771" /> <value unit="m/cumm" xsi:type ="PQ" value="2.85" /> <interpretationCode codeSystem="local" code="*" / > <referenceRange> <observationRange> <text> 4.00-6.00</text> </observationRange> </referenceRange> </observation> </component> <component> <observation moodCode="EVN" classCode="OBS"> <templateId root= "16.840.1.400413.08.05.22.4.2" /> <id nullFlavor="NA" /> < code codeSystem="local" code="RDW" displayName="RED CELL DISTRIBUTION WIDTH" /> <statusCode code="completed" /> <effectiveTime value= "519550880488" /> <value unit="%" xsi:type="PQ" value="14.0" /> <referenceRange> <observationRange> <text>11.0- 15.6</text> </observationRange> </referenceRange> </ observation> </component> <component> <observation moodCode= "EVN" classCode="OBS"> <templateId root="12.02.840.1.234669..22.4.2 " /> <id nullFlavor="NA" /> <code codeSystem="local" code="WBC " displayName="WHITE BLOOD CELL" /> <statusCode code="completed" /> <effectiveTime value="100679941092" /> <value unit="k/cumm" xsi: type="PQ" value="13.5" /> <interpretationCode codeSystem="local" code= "*" /> <referenceRange> <observationRange> < text>5.0-10.0</text> </observationRange> </referenceRange> </observation> </component> <component> <observation moodCode="EVN" classCode="OBS"> <templateId root= "16.840.1.325440.10.20.22.4.2" /> <id nullFlavor="NA" /> < code codeSystem="local" code="HGBT" displayName="HEMOGLOBIN" /> < statusCode code="completed" /> <effectiveTime value="434825746403" /> <value unit="gm/dL" xsi:type="PQ" value="8.8" /> < interpretationCode codeSystem="local" code="*" /> <referenceRange> <observationRange> <text>14.0-18.0</text> </ observationRange> </referenceRange> </observation> </ component> <component> <observation moodCode="EVN" classCode="OBS"> <templateId root="12.02.840.1.298225.10..22.4.2" /> <id nullFlavor="NA" /> <code codeSystem="local" code="HCTT" displayName= "HEMATOCRIT" /> <statusCode code="completed" /> < effectiveTime value="496824251168" /> <value unit="%" xsi:type="PQ " value="26.0" /> <interpretationCode codeSystem="local" code="*" /> <referenceRange> <observationRange> <text>40.0- 54.0</text> </observationRange> </referenceRange> </ observation> </component> <component> <observation moodCode= "EVN" classCode="OBS"> <templateId root="16.840.1.278587.10.20.22.4.2 " /> <id nullFlavor="NA" /> <code codeSystem="local" code= "NRBC%" displayName="NRBC %" /> <statusCode code="completed" / > <effectiveTime value="298732264765" /> <value unit="/100WBC " xsi:type="PQ" value="0.0" /> <referenceRange> < observationRange> <text>0.0-0.0</text> </ observationRange> </referenceRange> </observation> </ component> <component> <observation moodCode="EVN" classCode="OBS"> <templateId root="2.16.840.1.104149.10..22.4.2" /> <id nullFlavor="NA" /> <code codeSystem="local" code="PLTT" displayName= "PLATELET COUNT" /> <statusCode code="completed" /> < effectiveTime value="498845266682" /> <value unit="k/cumm" xsi:type="PQ " value="158" /> <referenceRange> <observationRange> <text>150-400</text> </observationRange> </ referenceRange> </observation> </component> <component> <observation moodCode="EVN" classCode="OBS"> <templateId root= "2.16.840.1.808943.10..22.4.2" /> <id nullFlavor="NA" /> < code codeSystem="local" code="IG%" displayName="IMMATURE GRANULOCYTE %" /> <statusCode code="completed" /> <effectiveTime value= "150977401314" /> <value unit="%" xsi:type="PQ" value="0.5" /> <referenceRange> <observationRange> <text>0.0-0.6< /text> </observationRange> </referenceRange> </ observation> </component> <component> <observation moodCode= "EVN" classCode="OBS"> <templateId root="2.16.840.1.101127.10.20.22.4.2 " /> <id nullFlavor="NA" /> <code codeSystem="local" code="IG# " displayName="IMMATURE GRANULOCYTE #" /> <statusCode code="completed" /> <effectiveTime value="191606250553" /> <value unit="k/cumm " xsi:type="PQ" value="0.07" /> <referenceRange> < observationRange> <text>0.00-0.09</text> </ observationRange> </referenceRange> </observation> </ component> </organizer> </entry> <entry> <organizer moodCode="EVN" classCode="BATTERY"> <templateId root="2.16.840.1.709223.10.20.22.4.1" /> <id nullFlavor="NA" /> <code codeSystem="local" code="GLUMON" displayName="GLUCOSE (POC)" /> <statusCode code="completed" /> < component> <observation moodCode="EVN" classCode="OBS"> < templateId root="2.16.840.1.180481.10.20.22.4.2" /> <id nullFlavor="NA " /> <code codeSystem="local" code="GLUMON" displayName="GLUCOSE (POC) " /> <statusCode code="completed" /> <effectiveTime value= "252915100807" /> <value unit="mg/dL" xsi:type="PQ" value="92" /> <referenceRange> <observationRange> <text>70-99</ text> </observationRange> </referenceRange> </ observation> </component> </organizer> </entry> <entry> <organizer moodCode="EVN" classCode="BATTERY"> <templateId root= "216.840.1.145958.10..4.1" /> <id nullFlavor="NA" /> <code codeSystem="local" code="HGB" displayName="HEMOGLOBIN" /> <statusCode code= "completed" /> <component> <observation moodCode="EVN" classCode= "OBS"> <templateId root="12.02.840.1.197100.08.05.22.4.2" /> < id nullFlavor="NA" /> <code codeSystem="local" code="MCV" displayName= "MEAN CELL VOLUME" /> <statusCode code="completed" /> < effectiveTime value="" /> <value unit="fl" xsi:type="PQ" value="92.0" /> <referenceRange> <observationRange> <text>80.0-100.0</text> </observationRange> </ referenceRange> </observation> </component> <component> <observation moodCode="EVN" classCode="OBS"> <templateId root= "[id number]" /> <id nullFlavor="NA" /> < code codeSystem="local" code="HGBT" displayName="HEMOGLOBIN" /> < statusCode code="completed" /> <effectiveTime value="[id number]" /> <value unit="gm/dL" xsi:type="PQ" value="9.0" /> < interpretationCode codeSystem="local" code="*" /> <referenceRange> <observationRange> <text>14.0-18.0</text> </ observationRange> </referenceRange> </observation> </ component> </organizer> </entry> <entry> <organizer moodCode="EVN" classCode="BATTERY"> <templateId root="216.840.1.859697.08.05.22.4.1" /> <id nullFlavor="NA" /> <code codeSystem="local" code="GLUMON" displayName="GLUCOSE (POC)" /> <statusCode code="completed" /> < component> <observation moodCode="EVN" classCode="OBS"> < templateId root="840.1.511818.08.05.22.4.2" /> <id nullFlavor="NA " /> <code codeSystem="local" code="GLUMON" displayName="GLUCOSE (POC) " /> <statusCode code="completed" /> <effectiveTime value= "920163678313" /> <value unit="mg/dL" xsi:type="PQ" value="119" /> <interpretationCode codeSystem="local" code="*" /> < referenceRange> <observationRange> <text>70-99</text> </observationRange> </referenceRange> </observation> </component> </organizer> </entry> <entry> <organizer moodCode="EVN " classCode="BATTERY"> <templateId root="840.1.796705.08.05.22.4.1" / > <id nullFlavor="NA" /> <code codeSystem="local" code="CBCD" displayName="CBC W/DIFF" /> <statusCode code="completed" /> <component > <observation moodCode="EVN" classCode="OBS"> <templateId root= "840.1.232882.08.05.22.4.2" /> <id nullFlavor="NA" /> < code codeSystem="local" code="BA#" displayName="BASOPHIL #" /> < statusCode code="completed" /> <effectiveTime value="073403395353" /> <value unit="k/cumm" xsi:type="PQ" value="0.0" /> < referenceRange> <observationRange> <text>0.0-0.2</text> </observationRange> </referenceRange> </observation > </component> <component> <observation moodCode="EVN" classCode="OBS"> <templateId root="12.02.840.1.389400.10.20.22.4.2" /> <id nullFlavor="NA" /> <code codeSystem="local" code="BA% " displayName="BASOPHIL %" /> <statusCode code="completed" /> <effectiveTime value="739014913405" /> <value unit="%" xsi: type="PQ" value="0.1" /> <referenceRange> <observationRange > <text>0-1</text> </observationRange> </ referenceRange> </observation> </component> <component> <observation moodCode="EVN" classCode="OBS"> <templateId root= "12.02.840.1.540685...4.2" /> <id nullFlavor="NA" /> < code codeSystem="local" code="EO#" displayName="EOSINOPHIL #" /> < statusCode code="completed" /> <effectiveTime value="887043341959" /> <value unit="k/cumm" xsi:type="PQ" value="0.0" /> < interpretationCode codeSystem="local" code="*" /> <referenceRange> <observationRange> <text>0.1-0.5</text> </ observationRange> </referenceRange> </observation> </ component> <component> <observation moodCode="EVN" classCode="OBS"> <templateId root="12.02.840.1.825511.10.20.22.4.2" /> <id nullFlavor="NA" /> <code codeSystem="local" code="EO%" displayName= "EOSINOPHIL %" /> <statusCode code="completed" /> < effectiveTime value="935123095055" /> <value unit="%" xsi:type="PQ " value="0.0" /> <interpretationCode codeSystem="local" code="*" /> <referenceRange> <observationRange> <text>2-4</ text> </observationRange> </referenceRange> </ observation> </component> <component> <observation moodCode= "EVN" classCode="OBS"> <templateId root="216.840.1.479930.08.05.224.2 " /> <id nullFlavor="NA" /> <code codeSystem="local" code="GR# " displayName="GRANULOCYTE #" /> <statusCode code="completed" /> <effectiveTime value="" /> <value unit="k/cumm" xsi: type="PQ" value="9.4" /> <interpretationCode codeSystem="local" code="* " /> <referenceRange> <observationRange> <text> 2.0-9.0</text> </observationRange> </referenceRange> </observation> </component> <component> <observation moodCode= "EVN" classCode="OBS"> <templateId root="216.840.1.513103.10.4.2 " /> <id nullFlavor="NA" /> <code codeSystem="local" code="GR& #37;" displayName="GRANULOCYTE %" /> <statusCode code="completed" / > <effectiveTime value="500965578692" /> <value unit="%" xsi:type="PQ" value="91.5" /> <interpretationCode codeSystem="local" code="*" /> <referenceRange> <observationRange> <text>50-75</text> </observationRange> </referenceRange> </observation> </component> <component> <observation moodCode="EVN" classCode="OBS"> <templateId root= "216.840.1.085029.10.2022.4.2" /> <id nullFlavor="NA" /> < code codeSystem="local" code="LY#" displayName="LYMPHOCYTE #" /> < statusCode code="completed" /> <effectiveTime value="441597398898" /> <value unit="k/cumm" xsi:type="PQ" value="0.6" /> < interpretationCode codeSystem="local" code="*" /> <referenceRange> <observationRange> <text>1.0-4.0</text> </ observationRange> </referenceRange> </observation> </ component> <component> <observation moodCode="EVN" classCode="OBS"> <templateId root="16.840.1.227991.10.22.4.2" /> <id nullFlavor="NA" /> <code codeSystem="local" code="LY%" displayName= "LYMPHOCYTE %" /> <statusCode code="completed" /> < effectiveTime value="808287743792" /> <value unit="%" xsi:type="PQ " value="6.0" /> <interpretationCode codeSystem="local" code="*" /> <referenceRange> <observationRange> <text>20-30</ text> </observationRange> </referenceRange> </ observation> </component> <component> <observation moodCode= "EVN" classCode="OBS"> <templateId root="216.840.1.682436.10.2022.4.2 " /> <id nullFlavor="NA" /> <code codeSystem="local" code="MCH " displayName="MEAN CELL HGB" /> <statusCode code="completed" /> <effectiveTime value="418063725385" /> <value unit="pg" xsi:type= "PQ" value="31.2" /> <referenceRange> <observationRange> <text>27.0-33.0</text> </observationRange> </ referenceRange> </observation> </component> <component> <observation moodCode="EVN" classCode="OBS"> <templateId root= "2.16.840.1.454361.10...4.2" /> <id nullFlavor="NA" /> < code codeSystem="local" code="MCHC" displayName="MEAN CELL HGB CONCENTRATION" / > <statusCode code="completed" /> <effectiveTime value= "513296053353" /> <value unit="g/dL" xsi:type="PQ" value="34.4" /> <referenceRange> <observationRange> <text>32.0- 37.0</text> </observationRange> </referenceRange> </ observation> </component> <component> <observation moodCode= "EVN" classCode="OBS"> <templateId root="2.16.840.1.407557.10...4.2 " /> <id nullFlavor="NA" /> <code codeSystem="local" code="MCV " displayName="MEAN CELL VOLUME" /> <statusCode code="completed" /> <effectiveTime value="826928541423" /> <value unit="fl" xsi:type ="PQ" value="90.7" /> <referenceRange> <observationRange> <text>80.0-100.0</text> </observationRange> </ referenceRange> </observation> </component> <component> <observation moodCode="EVN" classCode="OBS"> <templateId root= "840.1.308669.10.2022.4.2" /> <id nullFlavor="NA" /> < code codeSystem="local" code="MO#" displayName="MONOCYTE #" /> < statusCode code="completed" /> <effectiveTime value="361150661254" /> <value unit="k/cumm" xsi:type="PQ" value="0.2" /> < referenceRange> <observationRange> <text>0.1-1.0</text> </observationRange> </referenceRange> </observation > </component> <component> <observation moodCode="EVN" classCode="OBS"> <templateId root="840.1.087602.1022.4.2" /> <id nullFlavor="NA" /> <code codeSystem="local" code="MO% " displayName="MONOCYTE %" /> <statusCode code="completed" /> <effectiveTime value="314921867618" /> <value unit="%" xsi: type="PQ" value="1.7" /> <interpretationCode codeSystem="local" code="* " /> <referenceRange> <observationRange> <text> 4-6</text> </observationRange> </referenceRange> </ observation> </component> <component> <observation moodCode= "EVN" classCode="OBS"> <templateId root="12.02.840.1.433293.10.2022.4.2 " /> <id nullFlavor="NA" /> <code codeSystem="local" code= "MPVT" displayName="MEAN PLATELET VOLUME" /> <statusCode code= "completed" /> <effectiveTime value="045037572596" /> <value unit="fl" xsi:type="PQ" value="10.1" /> <referenceRange> < observationRange> <text>8.5-10.9</text> </ observationRange> </referenceRange> </observation> </ component> <component> <observation moodCode="EVN" classCode="OBS"> <templateId root="216.840.1.964128.10..22.4.2" /> <id nullFlavor="NA" /> <code codeSystem="local" code="RBC" displayName=" RED BLOOD CELL" /> <statusCode code="completed" /> < effectiveTime value="891518281641" /> <value unit="m/cumm" xsi:type="PQ " value="3.01" /> <interpretationCode codeSystem="local" code="*" /> <referenceRange> <observationRange> <text>4.00- 6.00</text> </observationRange> </referenceRange> </ observation> </component> <component> <observation moodCode= "EVN" classCode="OBS"> <templateId root="12.02.840.1.505826...4.2 " /> <id nullFlavor="NA" /> <code codeSystem="local" code="RDW " displayName="RED CELL DISTRIBUTION WIDTH" /> <statusCode code= "completed" /> <effectiveTime value="647469407397" /> <value unit="%" xsi:type="PQ" value="13.9" /> <referenceRange> <observationRange> <text>11.0-15.6</text> </ observationRange> </referenceRange> </observation> </ component> <component> <observation moodCode="EVN" classCode="OBS"> <templateId root="216.840.1.388458.10..22.4.2" /> <id nullFlavor="NA" /> <code codeSystem="local" code="WBC" displayName= "WHITE BLOOD CELL" /> <statusCode code="completed" /> < effectiveTime value="" /> <value unit="k/cumm" xsi:type="PQ " value="10.3" /> <interpretationCode codeSystem="local" code="*" /> <referenceRange> <observationRange> <text>5.0- 10.0</text> </observationRange> </referenceRange> </ observation> </component> <component> <observation moodCode= "EVN" classCode="OBS"> <templateId root="216.840.1.738355.1022.4.2 " /> <id nullFlavor="NA" /> <code codeSystem="local" code= "HGBT" displayName="HEMOGLOBIN" /> <statusCode code="completed" /> <effectiveTime value="" /> <value unit="gm/dL" xsi: type="PQ" value="9.4" /> <interpretationCode codeSystem="local" code="* " /> <referenceRange> <observationRange> <text> 14.0-18.0</text> </observationRange> </referenceRange> </observation> </component> <component> <observation moodCode="EVN" classCode="OBS"> <templateId root= "216.840.1.011514.10.2022.4.2" /> <id nullFlavor="NA" /> < code codeSystem="local" code="HCTT" displayName="HEMATOCRIT" /> < statusCode code="completed" /> <effectiveTime value="313854587082" /> <value unit="%" xsi:type="PQ" value="27.3" /> < interpretationCode codeSystem="local" code="*" /> <referenceRange> <observationRange> <text>40.0-54.0</text> </ observationRange> </referenceRange> </observation> </ component> <component> <observation moodCode="EVN" classCode="OBS"> <templateId root="216.840.1.711103.10.20.22.4.2" /> <id nullFlavor="NA" /> <code codeSystem="local" code="NRBC%" displayName="NRBC %" /> <statusCode code="completed" /> < effectiveTime value="017701423456" /> <value unit="/100WBC" xsi:type= "PQ" value="0.0" /> <referenceRange> <observationRange> <text>0.0-0.0</text> </observationRange> </ referenceRange> </observation> </component> <component> <observation moodCode="EVN" classCode="OBS"> <templateId root= "12.02.840.1.019786.10.22.4.2" /> <id nullFlavor="NA" /> < code codeSystem="local" code="PLTT" displayName="PLATELET COUNT" /> < statusCode code="completed" /> <effectiveTime value="183811359860" /> <value unit="k/cumm" xsi:type="PQ" value="157" /> < referenceRange> <observationRange> <text>150-400</text> </observationRange> </referenceRange> </observation > </component> <component> <observation moodCode="EVN" classCode="OBS"> <templateId root="12.02.840.1.251087.10.2022.4.2" /> <id nullFlavor="NA" /> <code codeSystem="local" code="IG% " displayName="IMMATURE GRANULOCYTE %" /> <statusCode code= "completed" /> <effectiveTime value="668014454974" /> <value unit="%" xsi:type="PQ" value="0.7" /> <interpretationCode codeSystem="local" code="*" /> <referenceRange> < observationRange> <text>0.0-0.6</text> </ observationRange> </referenceRange> </observation> </ component> <component> <observation moodCode="EVN" classCode="OBS"> <templateId root="840.1.624471.1022.4.2" /> <id nullFlavor="NA" /> <code codeSystem="local" code="IG#" displayName= "IMMATURE GRANULOCYTE #" /> <statusCode code="completed" /> < effectiveTime value="741653311898" /> <value unit="k/cumm" xsi:type="PQ " value="0.07" /> <referenceRange> <observationRange> <text>0.00-0.09</text> </observationRange> </ referenceRange> </observation> </component> </organizer> </entry > <entry> <organizer moodCode="EVN" classCode="BATTERY"> <templateId root="840.1.946469.10.4.1" /> <id nullFlavor="NA" /> <code codeSystem="local" code="METABC" displayName="METABOLIC PANEL, COMPREHN" /> <statusCode code="completed" /> <component> <observation moodCode= "EVN" classCode="OBS"> <templateId root="840.1.273705.1022.4.2 " /> <id nullFlavor="NA" /> <code codeSystem="local" code="K" displayName="POTASSIUM" /> <statusCode code="completed" /> < effectiveTime value="623640955475" /> <value unit="mmol/L" xsi:type="PQ " value="4.4" /> <referenceRange> <observationRange> <text>3.5-5.3</text> </observationRange> </ referenceRange> </observation> </component> <component> <observation moodCode="EVN" classCode="OBS"> <templateId root= "12.02.840.1.527396.08.05.22.4.2" /> <id nullFlavor="NA" /> < code codeSystem="local" code="eGFR" displayName="EST GFR (MDRD)" /> < statusCode code="completed" /> <effectiveTime value="357664055328" /> <value unit="mL/min" xsi:type="PQ" value="53" /> < interpretationCode codeSystem="local" code="*" /> <referenceRange> <observationRange> <text>> 59</text> </ observationRange> </referenceRange> </observation> </ component> <component> <observation moodCode="EVN" classCode="OBS"> <templateId root="12.02.840.1.975956.08.05.22.4.2" /> <id nullFlavor="NA" /> <code codeSystem="local" code="GAP" displayName= "ANION GAP" /> <statusCode code="completed" /> <effectiveTime value="523070645165" /> <value unit="mmol/L" xsi:type="PQ" value="9" / > <referenceRange> <observationRange> <text>5- 15</text> </observationRange> </referenceRange> </ observation> </component> <component> <observation moodCode= "EVN" classCode="OBS"> <templateId root="12.02.840.1.406684.08.05.22.4.2 " /> <id nullFlavor="NA" /> <code codeSystem="local" code= "eCrCl" displayName="EST CrCl (CG)" /> <statusCode code="completed" /> <effectiveTime value="157700618003" /> <value unit="mL/min" xsi:type="PQ" value="54" /> <interpretationCode codeSystem="local" code ="*" /> <referenceRange> <observationRange> < text>> 59</text> </observationRange> </referenceRange> </observation> </component> <component> <observation moodCode="EVN" classCode="OBS"> <templateId root= "12.02.840.1.038145.08.05.22.4.2" /> <id nullFlavor="NA" /> < code codeSystem="local" code="GLU" displayName="GLUCOSE" /> < statusCode code="completed" /> <effectiveTime value="" /> <value unit="mg/dL" xsi:type="PQ" value="139" /> < interpretationCode codeSystem="local" code="*" /> <referenceRange> <observationRange> <text>70-99</text> </ observationRange> </referenceRange> </observation> </ component> <component> <observation moodCode="EVN" classCode="OBS"> <templateId root="12.02.840.1.247926.08.05.22.4.2" /> <id nullFlavor="NA" /> <code codeSystem="local" code="CA" displayName= "CALCIUM" /> <statusCode code="completed" /> <effectiveTime value="925721713440" /> <value unit="mg/dL" xsi:type="PQ" value="8.2" / > <interpretationCode codeSystem="local" code="*" /> < referenceRange> <observationRange> <text>8.5-10.1</text > </observationRange> </referenceRange> </observation > </component> <component> <observation moodCode="EVN" classCode="OBS"> <templateId root="16.840.1.367290.10.20.22.4.2" /> <id nullFlavor="NA" /> <code codeSystem="local" code="BUN" displayName="BLOOD UREA NITROGEN" /> <statusCode code="completed" /> <effectiveTime value="414015363317" /> <value unit="mg/dL" xsi: type="PQ" value="22" /> <interpretationCode codeSystem="local" code="* " /> <referenceRange> <observationRange> <text> 7-20</text> </observationRange> </referenceRange> </ observation> </component> <component> <observation moodCode= "EVN" classCode="OBS"> <templateId root="12.02.840.1.733043.10.22.4.2 " /> <id nullFlavor="NA" /> <code codeSystem="local" code= "CREAT" displayName="CREATININE" /> <statusCode code="completed" /> <effectiveTime value="977873217561" /> <value unit="mg/dL" xsi: type="PQ" value="1.3" /> <referenceRange> <observationRange > <text>0.7-1.3</text> </observationRange> </ referenceRange> </observation> </component> <component> <observation moodCode="EVN" classCode="OBS"> <templateId root= "12.02.840.1.229664.10.20.22.4.2" /> <id nullFlavor="NA" /> < code codeSystem="local" code="NA" displayName="SODIUM" /> <statusCode code="completed" /> <effectiveTime value="251577353887" /> < value unit="mmol/L" xsi:type="PQ" value="139" /> <referenceRange> <observationRange> <text>135-148</text> </ observationRange> </referenceRange> </observation> </ component> <component> <observation moodCode="EVN" classCode="OBS"> <templateId root="16.840.1.765272.08.05.22.4.2" /> <id nullFlavor="NA" /> <code codeSystem="local" code="CL" displayName= "CHLORIDE" /> <statusCode code="completed" /> <effectiveTime value="800006869306" /> <value unit="mmol/L" xsi:type="PQ" value="108" /> <referenceRange> <observationRange> <text>98 -110</text> </observationRange> </referenceRange> </ observation> </component> <component> <observation moodCode= "EVN" classCode="OBS"> <templateId root="12.02.840.1.089615.08.05.22.4.2 " /> <id nullFlavor="NA" /> <code codeSystem="local" code="AST " displayName="AST/SGOT" /> <statusCode code="completed" /> < effectiveTime value="421396412528" /> <value unit="Units/L" xsi:type= "PQ" value="24" /> <referenceRange> <observationRange> <text>10-37</text> </observationRange> </ referenceRange> </observation> </component> <component> <observation moodCode="EVN" classCode="OBS"> <templateId root= "16.840.1.746917.08.05.22.4.2" /> <id nullFlavor="NA" /> < code codeSystem="local" code="ALT" displayName="ALT/SGPT" /> < statusCode code="completed" /> <effectiveTime value="300996546081" /> <value unit="Units/L" xsi:type="PQ" value="28" /> < referenceRange> <observationRange> <text>< 66</text> </observationRange> </referenceRange> </observation > </component> <component> <observation moodCode="EVN" classCode="OBS"> <templateId root="216.840.1.867566.10...4.2" /> <id nullFlavor="NA" /> <code codeSystem="local" code="CO2" displayName="CARBON DIOXIDE" /> <statusCode code="completed" /> <effectiveTime value="042085861751" /> <value unit="mmol/L" xsi:type ="PQ" value="22" /> <referenceRange> <observationRange> <text>21-32</text> </observationRange> </ referenceRange> </observation> </component> <component> <observation moodCode="EVN" classCode="OBS"> <templateId root= "216.840.1.197324.10..22.4.2" /> <id nullFlavor="NA" /> < code codeSystem="local" code="TP" displayName="TOTAL PROTEIN" /> < statusCode code="completed" /> <effectiveTime value="152312004211" /> <value unit="gm/dL" xsi:type="PQ" value="5.6" /> < interpretationCode codeSystem="local" code="*" /> <referenceRange> <observationRange> <text>6.4-8.2</text> </ observationRange> </referenceRange> </observation> </ component> <component> <observation moodCode="EVN" classCode="OBS"> <templateId root="12.02.840.1.283451.10..22.4.2" /> <id nullFlavor="NA" /> <code codeSystem="local" code="ALB" displayName= "ALBUMIN" /> <statusCode code="completed" /> <effectiveTime value="" /> <value unit="gm/dL" xsi:type="PQ" value="2.8" / > <interpretationCode codeSystem="local" code="*" /> < referenceRange> <observationRange> <text>3.4-5.0</text> </observationRange> </referenceRange> </observation > </component> <component> <observation moodCode="EVN" classCode="OBS"> <templateId root="12.02.840.1.634936.08.05.22.4.2" /> <id nullFlavor="NA" /> <code codeSystem="local" code="BILTOT" displayName="BILI TOTAL" /> <statusCode code="completed" /> < effectiveTime value="" /> <value unit="mg/dL" xsi:type="PQ " value="1.2" /> <interpretationCode codeSystem="local" code="*" /> <referenceRange> <observationRange> <text>0.0-1.0 </text> </observationRange> </referenceRange> </ observation> </component> <component> <observation moodCode= "EVN" classCode="OBS"> <templateId root="12.02.840.1.816642.1022.4.2 " /> <id nullFlavor="NA" /> <code codeSystem="local" code= "ALKP" displayName="ALKALINE PHOSPHATASE TOTAL" /> <statusCode code= "completed" /> <effectiveTime value="" /> <value unit="IU/L" xsi:type="PQ" value="50" /> <referenceRange> < observationRange> <text>45-117</text> </observationRange > </referenceRange> </observation> </component> </ organizer> </entry> <entry> <organizer moodCode="EVN" classCode="BATTERY"> <templateId root="216.840.1.542650.10.20.22.4.1" /> <id nullFlavor= "NA" /> <code codeSystem="local" code="GLUMON" displayName="GLUCOSE (POC)" /> <statusCode code="completed" /> <component> <observation moodCode="EVN" classCode="OBS"> <templateId root= "216.840.1.683412.10.20.22.4.2" /> <id nullFlavor="NA" /> < code codeSystem="local" code="GLUMON" displayName="GLUCOSE (POC)" /> < statusCode code="completed" /> <effectiveTime value="848522422362" /> <value unit="mg/dL" xsi:type="PQ" value="100" /> < interpretationCode codeSystem="local" code="*" /> <referenceRange> <observationRange> <text>70-99</text> </ observationRange> </referenceRange> </observation> </ component> </organizer> </entry> <entry> <organizer moodCode="EVN" classCode="BATTERY"> <templateId root="216.840.1.137174.10..22.4.1" /> <id nullFlavor="NA" /> <code codeSystem="local" code="GLUMON" displayName="GLUCOSE (POC)" /> <statusCode code="completed" /> < component> <observation moodCode="EVN" classCode="OBS"> < templateId root="16.840.1.361412.10.22.4.2" /> <id nullFlavor="NA " /> <code codeSystem="local" code="GLUMON" displayName="GLUCOSE (POC) " /> <statusCode code="completed" /> <effectiveTime value= "236122007734" /> <value unit="mg/dL" xsi:type="PQ" value="90" /> <referenceRange> <observationRange> <text>70-99</ text> </observationRange> </referenceRange> </ observation> </component> </organizer> </entry> <entry> <organizer moodCode="EVN" classCode="BATTERY"> <templateId root= "12.02.840.1.145131.10..4.1" /> <id nullFlavor="NA" /> <code codeSystem="local" code="CBC" displayName="CBC" /> <statusCode code= "completed" /> <component> <observation moodCode="EVN" classCode= "OBS"> <templateId root="12.02.840.1.325051.08.05.22.4.2" /> < id nullFlavor="NA" /> <code codeSystem="local" code="MCH" displayName= "MEAN CELL HGB" /> <statusCode code="completed" /> < effectiveTime value="283729178293" /> <value unit="pg" xsi:type="PQ" value="31.1" /> <referenceRange> <observationRange> <text>27.0-33.0</text> </observationRange> </ referenceRange> </observation> </component> <component> <observation moodCode="EVN" classCode="OBS"> <templateId root= "12.02.840.1.093420.08.05.22.4.2" /> <id nullFlavor="NA" /> < code codeSystem="local" code="MCHC" displayName="MEAN CELL HGB CONCENTRATION" / > <statusCode code="completed" /> <effectiveTime value= "424761750561" /> <value unit="g/dL" xsi:type="PQ" value="33.9" /> <referenceRange> <observationRange> <text>32.0- 37.0</text> </observationRange> </referenceRange> </ observation> </component> <component> <observation moodCode= "EVN" classCode="OBS"> <templateId root="2.16.840.1.228439.10..22.4.2 " /> <id nullFlavor="NA" /> <code codeSystem="local" code="MCV " displayName="MEAN CELL VOLUME" /> <statusCode code="completed" /> <effectiveTime value="" /> <value unit="fl" xsi:type ="PQ" value="91.9" /> <referenceRange> <observationRange> <text>80.0-100.0</text> </observationRange> </ referenceRange> </observation> </component> <component> <observation moodCode="EVN" classCode="OBS"> <templateId root= "2.16.840.1.827509.10..22.4.2" /> <id nullFlavor="NA" /> < code codeSystem="local" code="MPVT" displayName="MEAN PLATELET VOLUME" /> <statusCode code="completed" /> <effectiveTime value="666232951210 " /> <value unit="fl" xsi:type="PQ" value="10.5" /> < referenceRange> <observationRange> <text>8.5-10.9</text > </observationRange> </referenceRange> </observation > </component> <component> <observation moodCode="EVN" classCode="OBS"> <templateId root="16.840.1.070209.10..22.4.2" /> <id nullFlavor="NA" /> <code codeSystem="local" code="RBC" displayName="RED BLOOD CELL" /> <statusCode code="completed" /> <effectiveTime value="189660978369" /> <value unit="m/cumm" xsi:type ="PQ" value="2.73" /> <interpretationCode codeSystem="local" code="*" / > <referenceRange> <observationRange> <text> 4.00-6.00</text> </observationRange> </referenceRange> </observation> </component> <component> <observation moodCode="EVN" classCode="OBS"> <templateId root= "16.840.1.749137.08.05.22.4.2" /> <id nullFlavor="NA" /> < code codeSystem="local" code="RDW" displayName="RED CELL DISTRIBUTION WIDTH" /> <statusCode code="completed" /> <effectiveTime value= "624790206811" /> <value unit="%" xsi:type="PQ" value="13.9" /> <referenceRange> <observationRange> <text>11.0- 15.6</text> </observationRange> </referenceRange> </ observation> </component> <component> <observation moodCode= "EVN" classCode="OBS"> <templateId root="16.840.1.891860.10..22.4.2 " /> <id nullFlavor="NA" /> <code codeSystem="local" code="WBC " displayName="WHITE BLOOD CELL" /> <statusCode code="completed" /> <effectiveTime value="471987434513" /> <value unit="k/cumm" xsi: type="PQ" value="8.2" /> <referenceRange> <observationRange > <text>5.0-10.0</text> </observationRange> </ referenceRange> </observation> </component> <component> <observation moodCode="EVN" classCode="OBS"> <templateId root= "12.02.840.1.792434.10.20.22.4.2" /> <id nullFlavor="NA" /> < code codeSystem="local" code="HGBT" displayName="HEMOGLOBIN" /> < statusCode code="completed" /> <effectiveTime value="420206784299" /> <value unit="gm/dL" xsi:type="PQ" value="8.5" /> < interpretationCode codeSystem="local" code="*" /> <referenceRange> <observationRange> <text>14.0-18.0</text> </ observationRange> </referenceRange> </observation> </ component> <component> <observation moodCode="EVN" classCode="OBS"> <templateId root="12.02.840.1.688660.10..4.2" /> <id nullFlavor="NA" /> <code codeSystem="local" code="HCTT" displayName= "HEMATOCRIT" /> <statusCode code="completed" /> < effectiveTime value="255855924748" /> <value unit="%" xsi:type="PQ " value="25.1" /> <interpretationCode codeSystem="local" code="*" /> <referenceRange> <observationRange> <text>40.0- 54.0</text> </observationRange> </referenceRange> </ observation> </component> <component> <observation moodCode= "EVN" classCode="OBS"> <templateId root="12.02.840.1.273101.10.20.22.4.2 " /> <id nullFlavor="NA" /> <code codeSystem="local" code= "NRBC%" displayName="NRBC %" /> <statusCode code="completed" / > <effectiveTime value="503290654804" /> <value unit="/100WBC " xsi:type="PQ" value="0.0" /> <referenceRange> < observationRange> <text>0.0-0.0</text> </ observationRange> </referenceRange> </observation> </ component> <component> <observation moodCode="EVN" classCode="OBS"> <templateId root="840.1.503219.08.05.22.4.2" /> <id nullFlavor="NA" /> <code codeSystem="local" code="PLTT" displayName= "PLATELET COUNT" /> <statusCode code="completed" /> < effectiveTime value="113609222709" /> <value unit="k/cumm" xsi:type="PQ " value="155" /> <referenceRange> <observationRange> <text>150-400</text> </observationRange> </ referenceRange> </observation> </component> </organizer> </entry > <entry> <organizer moodCode="EVN" classCode="BATTERY"> <templateId root="840.1.506815.08.05.22.4.1" /> <id nullFlavor="NA" /> <code codeSystem="local" code="CBCD" displayName="CBC W/DIFF" /> <statusCode code ="completed" /> <component> <observation moodCode="EVN" classCode= "OBS"> <templateId root="12.02.840.1.616768.22.4.2" /> < id nullFlavor="NA" /> <code codeSystem="local" code="BA#" displayName= "BASOPHIL #" /> <statusCode code="completed" /> < effectiveTime value="046378445363" /> <value unit="k/cumm" xsi:type="PQ " value="0.0" /> <referenceRange> <observationRange> <text>0.0-0.2</text> </observationRange> </ referenceRange> </observation> </component> <component> <observation moodCode="EVN" classCode="OBS"> <templateId root= "216.840.1.536278.10...4.2" /> <id nullFlavor="NA" /> < code codeSystem="local" code="BA%" displayName="BASOPHIL %" /> <statusCode code="completed" /> <effectiveTime value="840068159358" /> <value unit="%" xsi:type="PQ" value="0.3" /> < referenceRange> <observationRange> <text>0-1</text> </observationRange> </referenceRange> </observation> </component> <component> <observation moodCode="EVN" classCode= "OBS"> <templateId root="216.840.1.402220.10..22.4.2" /> < id nullFlavor="NA" /> <code codeSystem="local" code="EO#" displayName= "EOSINOPHIL #" /> <statusCode code="completed" /> < effectiveTime value="587530439945" /> <value unit="k/cumm" xsi:type="PQ " value="0.2" /> <referenceRange> <observationRange> <text>0.1-0.5</text> </observationRange> </ referenceRange> </observation> </component> <component> <observation moodCode="EVN" classCode="OBS"> <templateId root= "216.840.1.339683.10.2022.4.2" /> <id nullFlavor="NA" /> < code codeSystem="local" code="EO%" displayName="EOSINOPHIL %" /> <statusCode code="completed" /> <effectiveTime value="794138333025" /> <value unit="%" xsi:type="PQ" value="2.4" /> < referenceRange> <observationRange> <text>2-4</text> </observationRange> </referenceRange> </observation> </component> <component> <observation moodCode="EVN" classCode= "OBS"> <templateId root="16.840.1.048833.10.22.4.2" /> < id nullFlavor="NA" /> <code codeSystem="local" code="GR#" displayName= "GRANULOCYTE #" /> <statusCode code="completed" /> < effectiveTime value="391759533778" /> <value unit="k/cumm" xsi:type="PQ " value="4.3" /> <referenceRange> <observationRange> <text>2.0-9.0</text> </observationRange> </ referenceRange> </observation> </component> <component> <observation moodCode="EVN" classCode="OBS"> <templateId root= "12.02.840.1.981244.10.2022.4.2" /> <id nullFlavor="NA" /> < code codeSystem="local" code="GR%" displayName="GRANULOCYTE %" /> <statusCode code="completed" /> <effectiveTime value="228688283380 " /> <value unit="%" xsi:type="PQ" value="64.3" /> < referenceRange> <observationRange> <text>50-75</text> </observationRange> </referenceRange> </observation> </component> <component> <observation moodCode="EVN" classCode= "OBS"> <templateId root="216.840.1.717251.10.4.2" /> < id nullFlavor="NA" /> <code codeSystem="local" code="LY#" displayName= "LYMPHOCYTE #" /> <statusCode code="completed" /> < effectiveTime value="403382104572" /> <value unit="k/cumm" xsi:type="PQ " value="1.8" /> <referenceRange> <observationRange> <text>1.0-4.0</text> </observationRange> </ referenceRange> </observation> </component> <component> <observation moodCode="EVN" classCode="OBS"> <templateId root= "12.02.840.1.642337.08.05.224.2" /> <id nullFlavor="NA" /> < code codeSystem="local" code="LY%" displayName="LYMPHOCYTE %" /> <statusCode code="completed" /> <effectiveTime value="921745771237" /> <value unit="%" xsi:type="PQ" value="26.5" /> < referenceRange> <observationRange> <text>20-30</text> </observationRange> </referenceRange> </observation> </component> <component> <observation moodCode="EVN" classCode= "OBS"> <templateId root="12.02.840.1.694839.08.05.22.4.2" /> < id nullFlavor="NA" /> <code codeSystem="local" code="MCH" displayName= "MEAN CELL HGB" /> <statusCode code="completed" /> < effectiveTime value="428066317338" /> <value unit="pg" xsi:type="PQ" value="30.7" /> <referenceRange> <observationRange> <text>27.0-33.0</text> </observationRange> </ referenceRange> </observation> </component> <component> <observation moodCode="EVN" classCode="OBS"> <templateId root= "216.840.1.129417.10..22.4.2" /> <id nullFlavor="NA" /> < code codeSystem="local" code="MCHC" displayName="MEAN CELL HGB CONCENTRATION" / > <statusCode code="completed" /> <effectiveTime value= "143257131610" /> <value unit="g/dL" xsi:type="PQ" value="34.2" /> <referenceRange> <observationRange> <text>32.0- 37.0</text> </observationRange> </referenceRange> </ observation> </component> <component> <observation moodCode= "EVN" classCode="OBS"> <templateId root="12.02.840.1.611914.10..4.2 " /> <id nullFlavor="NA" /> <code codeSystem="local" code="MCV " displayName="MEAN CELL VOLUME" /> <statusCode code="completed" /> <effectiveTime value="681074472328" /> <value unit="fl" xsi:type ="PQ" value="89.9" /> <referenceRange> <observationRange> <text>80.0-100.0</text> </observationRange> </ referenceRange> </observation> </component> <component> <observation moodCode="EVN" classCode="OBS"> <templateId root= "216.840.1.293126.10.20.22.4.2" /> <id nullFlavor="NA" /> < code codeSystem="local" code="MO#" displayName="MONOCYTE #" /> < statusCode code="completed" /> <effectiveTime value="312636746116" /> <value unit="k/cumm" xsi:type="PQ" value="0.4" /> < referenceRange> <observationRange> <text>0.1-1.0</text> </observationRange> </referenceRange> </observation > </component> <component> <observation moodCode="EVN" classCode="OBS"> <templateId root="2.16.840.1.581195.10...4.2" /> <id nullFlavor="NA" /> <code codeSystem="local" code="MO% " displayName="MONOCYTE %" /> <statusCode code="completed" /> <effectiveTime value="638539577369" /> <value unit="%" xsi: type="PQ" value="5.7" /> <referenceRange> <observationRange > <text>4-6</text> </observationRange> </ referenceRange> </observation> </component> <component> <observation moodCode="EVN" classCode="OBS"> <templateId root= "2.16.840.1.647407....4.2" /> <id nullFlavor="NA" /> < code codeSystem="local" code="MPVT" displayName="MEAN PLATELET VOLUME" /> <statusCode code="completed" /> <effectiveTime value="928538327607 " /> <value unit="fl" xsi:type="PQ" value="10.2" /> < referenceRange> <observationRange> <text>8.5-10.9</text > </observationRange> </referenceRange> </observation > </component> <component> <observation moodCode="EVN" classCode="OBS"> <templateId root="216.840.1.820408.10..22.4.2" /> <id nullFlavor="NA" /> <code codeSystem="local" code="RBC" displayName="RED BLOOD CELL" /> <statusCode code="completed" /> <effectiveTime value="501730644174" /> <value unit="m/cumm" xsi:type ="PQ" value="2.67" /> <interpretationCode codeSystem="local" code="*" / > <referenceRange> <observationRange> <text> 4.00-6.00</text> </observationRange> </referenceRange> </observation> </component> <component> <observation moodCode="EVN" classCode="OBS"> <templateId root= "216.840.1.864248.08.05.22.4.2" /> <id nullFlavor="NA" /> < code codeSystem="local" code="RDW" displayName="RED CELL DISTRIBUTION WIDTH" /> <statusCode code="completed" /> <effectiveTime value= "486801647205" /> <value unit="%" xsi:type="PQ" value="13.8" /> <referenceRange> <observationRange> <text>11.0- 15.6</text> </observationRange> </referenceRange> </ observation> </component> <component> <observation moodCode= "EVN" classCode="OBS"> <templateId root="216.840.1.671017.10..22.4.2 " /> <id nullFlavor="NA" /> <code codeSystem="local" code="WBC " displayName="WHITE BLOOD CELL" /> <statusCode code="completed" /> <effectiveTime value="328650707031" /> <value unit="k/cumm" xsi: type="PQ" value="6.6" /> <referenceRange> <observationRange > <text>5.0-10.0</text> </observationRange> </ referenceRange> </observation> </component> <component> <observation moodCode="EVN" classCode="OBS"> <templateId root= "216.840.1.711266.10..4.2" /> <id nullFlavor="NA" /> < code codeSystem="local" code="HGBT" displayName="HEMOGLOBIN" /> < statusCode code="completed" /> <effectiveTime value="352275568097" /> <value unit="gm/dL" xsi:type="PQ" value="8.2" /> < interpretationCode codeSystem="local" code="*" /> <referenceRange> <observationRange> <text>14.0-18.0</text> </ observationRange> </referenceRange> </observation> </ component> <component> <observation moodCode="EVN" classCode="OBS"> <templateId root="12.02.840.1.330111.08.05.22.4.2" /> <id nullFlavor="NA" /> <code codeSystem="local" code="HCTT" displayName= "HEMATOCRIT" /> <statusCode code="completed" /> < effectiveTime value="395157410498" /> <value unit="%" xsi:type="PQ " value="24.0" /> <interpretationCode codeSystem="local" code="*" /> <referenceRange> <observationRange> <text>40.0- 54.0</text> </observationRange> </referenceRange> </ observation> </component> <component> <observation moodCode= "EVN" classCode="OBS"> <templateId root="216.840.1.710006.08.05.22.4.2 " /> <id nullFlavor="NA" /> <code codeSystem="local" code= "NRBC%" displayName="NRBC %" /> <statusCode code="completed" / > <effectiveTime value="583083706253" /> <value unit="/100WBC " xsi:type="PQ" value="0.0" /> <referenceRange> < observationRange> <text>0.0-0.0</text> </ observationRange> </referenceRange> </observation> </ component> <component> <observation moodCode="EVN" classCode="OBS"> <templateId root="2.16.840.1.810231.08.05.224.2" /> <id nullFlavor="NA" /> <code codeSystem="local" code="PLTT" displayName= "PLATELET COUNT" /> <statusCode code="completed" /> < effectiveTime value="374266441594" /> <value unit="k/cumm" xsi:type="PQ " value="152" /> <referenceRange> <observationRange> <text>150-400</text> </observationRange> </ referenceRange> </observation> </component> <component> <observation moodCode="EVN" classCode="OBS"> <templateId root= "2.16.840.1.326883.08.05.22.4.2" /> <id nullFlavor="NA" /> < code codeSystem="local" code="IG%" displayName="IMMATURE GRANULOCYTE %" /> <statusCode code="completed" /> <effectiveTime value= "372294988883" /> <value unit="%" xsi:type="PQ" value="0.8" /> <interpretationCode codeSystem="local" code="*" /> < referenceRange> <observationRange> <text>0.0-0.6</text> </observationRange> </referenceRange> </observation > </component> <component> <observation moodCode="EVN" classCode="OBS"> <templateId root="12.02.840.1.015547.1022.4.2" /> <id nullFlavor="NA" /> <code codeSystem="local" code="IG#" displayName="IMMATURE GRANULOCYTE #" /> <statusCode code="completed" / > <effectiveTime value="336929895713" /> <value unit="k/cumm" xsi:type="PQ" value="0.05" /> <referenceRange> < observationRange> <text>0.00-0.09</text> </ observationRange> </referenceRange> </observation> </ component> </organizer> </entry> <entry> <organizer moodCode="EVN" classCode="BATTERY"> <templateId root="12.02.840.1.215073.10..4.1" /> <id nullFlavor="NA" /> <code codeSystem="local" code="METAB" displayName="METABOLIC PANEL, BASIC" /> <statusCode code="completed" /> <component> <observation moodCode="EVN" classCode="OBS"> < templateId root="12.02.840.1.748590.08.05.22.4.2" /> <id nullFlavor="NA " /> <code codeSystem="local" code="K" displayName="POTASSIUM" /> <statusCode code="completed" /> <effectiveTime value="765416034622 " /> <value unit="mmol/L" xsi:type="PQ" value="3.7" /> < referenceRange> <observationRange> <text>3.5-5.3</text> </observationRange> </referenceRange> </observation > </component> <component> <observation moodCode="EVN" classCode="OBS"> <templateId root="216.840.1.320099.10..4.2" /> <id nullFlavor="NA" /> <code codeSystem="local" code="eGFR" displayName="EST GFR (MDRD)" /> <statusCode code="completed" /> <effectiveTime value="" /> <value unit="mL/min" xsi:type ="PQ" value="> 60" /> <referenceRange> <observationRange > <text>> 59</text> </observationRange> </ referenceRange> </observation> </component> <component> <observation moodCode="EVN" classCode="OBS"> <templateId root= "216.840.1.290943.08.05.22.4.2" /> <id nullFlavor="NA" /> < code codeSystem="local" code="GAP" displayName="ANION GAP" /> < statusCode code="completed" /> <effectiveTime value="" /> <value unit="mmol/L" xsi:type="PQ" value="10" /> < referenceRange> <observationRange> <text>5-15</text> </observationRange> </referenceRange> </observation> </component> <component> <observation moodCode="EVN" classCode= "OBS"> <templateId root="16.840.1.696154.10..22.4.2" /> < id nullFlavor="NA" /> <code codeSystem="local" code="eCrCl" displayName ="EST CrCl (CG)" /> <statusCode code="completed" /> < effectiveTime value="" /> <value unit="mL/min" xsi:type="PQ " value="> 60" /> <referenceRange> <observationRange> <text>> 59</text> </observationRange> </ referenceRange> </observation> </component> <component> <observation moodCode="EVN" classCode="OBS"> <templateId root= "12.02.840.1.994769.10.20.22.4.2" /> <id nullFlavor="NA" /> < code codeSystem="local" code="GLU" displayName="GLUCOSE" /> < statusCode code="completed" /> <effectiveTime value="017994583279" /> <value unit="mg/dL" xsi:type="PQ" value="92" /> < referenceRange> <observationRange> <text>70-99</text> </observationRange> </referenceRange> </observation> </component> <component> <observation moodCode="EVN" classCode= "OBS"> <templateId root="12.02.840.1.273121.10.20.22.4.2" /> < id nullFlavor="NA" /> <code codeSystem="local" code="CA" displayName= "CALCIUM" /> <statusCode code="completed" /> <effectiveTime value="796901675070" /> <value unit="mg/dL" xsi:type="PQ" value="8.1" / > <interpretationCode codeSystem="local" code="*" /> < referenceRange> <observationRange> <text>8.5-10.1</text > </observationRange> </referenceRange> </observation > </component> <component> <observation moodCode="EVN" classCode="OBS"> <templateId root="12.02.840.1.151591.10.20.22.4.2" /> <id nullFlavor="NA" /> <code codeSystem="local" code="BUN" displayName="BLOOD UREA NITROGEN" /> <statusCode code="completed" /> <effectiveTime value="012286488147" /> <value unit="mg/dL" xsi: type="PQ" value="17" /> <referenceRange> <observationRange> <text>7-20</text> </observationRange> </ referenceRange> </observation> </component> <component> <observation moodCode="EVN" classCode="OBS"> <templateId root= "16.840.1.432553.10..22.4.2" /> <id nullFlavor="NA" /> < code codeSystem="local" code="CREAT" displayName="CREATININE" /> < statusCode code="completed" /> <effectiveTime value="991001713109" /> <value unit="mg/dL" xsi:type="PQ" value="1.1" /> < referenceRange> <observationRange> <text>0.7-1.3</text> </observationRange> </referenceRange> </observation > </component> <component> <observation moodCode="EVN" classCode="OBS"> <templateId root="12.02.840.1.315476.10...4.2" /> <id nullFlavor="NA" /> <code codeSystem="local" code="NA" displayName="SODIUM" /> <statusCode code="completed" /> < effectiveTime value="367220192192" /> <value unit="mmol/L" xsi:type="PQ " value="140" /> <referenceRange> <observationRange> <text>135-148</text> </observationRange> </ referenceRange> </observation> </component> <component> <observation moodCode="EVN" classCode="OBS"> <templateId root= "12.02.840.1.002901.10..22.4.2" /> <id nullFlavor="NA" /> < code codeSystem="local" code="CL" displayName="CHLORIDE" /> < statusCode code="completed" /> <effectiveTime value="689992010097" /> <value unit="mmol/L" xsi:type="PQ" value="108" /> < referenceRange> <observationRange> <text>98-110</text> </observationRange> </referenceRange> </observation> </component> <component> <observation moodCode="EVN" classCode ="OBS"> <templateId root="16.840.1.104340.08.05.22.4.2" /> < id nullFlavor="NA" /> <code codeSystem="local" code="CO2" displayName= "CARBON DIOXIDE" /> <statusCode code="completed" /> < effectiveTime value="998586753008" /> <value unit="mmol/L" xsi:type="PQ " value="22" /> <referenceRange> <observationRange> <text>21-32</text> </observationRange> </ referenceRange> </observation> </component> </organizer> </entry > <entry> <organizer moodCode="EVN" classCode="BATTERY"> <templateId root="216.840.1.521634.08.05.22.4.1" /> <id nullFlavor="NA" /> <code codeSystem="local" code="PHOS" displayName="PHOSPHORUS" /> <statusCode code ="completed" /> <component> <observation moodCode="EVN" classCode= "OBS"> <templateId root="16.840.1.324235.08.05.22.4.2" /> < id nullFlavor="NA" /> <code codeSystem="local" code="PHOS" displayName= "PHOSPHORUS" /> <statusCode code="completed" /> < effectiveTime value="019900569915" /> <value unit="mg/dL" xsi:type="PQ " value="2.5" /> <referenceRange> <observationRange> <text>2.5-4.9</text> </observationRange> </ referenceRange> </observation> </component> </organizer> </entry > <entry> <organizer moodCode="EVN" classCode="BATTERY"> <templateId root="16.840.1.747016.10..22.4.1" /> <id nullFlavor="NA" /> <code codeSystem="local" code="MAG" displayName="MAGNESIUM" /> <statusCode code= "completed" /> <component> <observation moodCode="EVN" classCode= "OBS"> <templateId root="16.840.1.348810.10...4.2" /> < id nullFlavor="NA" /> <code codeSystem="local" code="MAG" displayName= "MAGNESIUM" /> <statusCode code="completed" /> <effectiveTime value="382298440489" /> <value unit="mg/dL" xsi:type="PQ" value="1.5" / > <interpretationCode codeSystem="local" code="*" /> < referenceRange> <observationRange> <text>1.8-2.4</text> </observationRange> </referenceRange> </observation > </component> </organizer> </entry> <entry> <organizer moodCode= "EVN" classCode="BATTERY"> <templateId root="16.840.1.695366.10..4.1 " /> <id nullFlavor="NA" /> <code codeSystem="local" code="HH" displayName="HGB HCT" /> <statusCode code="completed" /> <component > <observation moodCode="EVN" classCode="OBS"> <templateId root= "12.02.840.1.991148.10.2022.4.2" /> <id nullFlavor="NA" /> < code codeSystem="local" code="MCV" displayName="MEAN CELL VOLUME" /> < statusCode code="completed" /> <effectiveTime value="735012093647" /> <value unit="fl" xsi:type="PQ" value="90.9" /> <referenceRange > <observationRange> <text>80.0-100.0</text> </observationRange> </referenceRange> </observation> </ component> <component> <observation moodCode="EVN" classCode="OBS"> <templateId root="12.02.840.1.420810.1022.4.2" /> <id nullFlavor="NA" /> <code codeSystem="local" code="HGBT" displayName= "HEMOGLOBIN" /> <statusCode code="completed" /> < effectiveTime value="579411985533" /> <value unit="gm/dL" xsi:type="PQ " value="8.4" /> <interpretationCode codeSystem="local" code="*" /> <referenceRange> <observationRange> <text>14.0- 18.0</text> </observationRange> </referenceRange> </ observation> </component> <component> <observation moodCode= "EVN" classCode="OBS"> <templateId root="12.02.840.1.653605.10.2022.4.2 " /> <id nullFlavor="NA" /> <code codeSystem="local" code= "HCTT" displayName="HEMATOCRIT" /> <statusCode code="completed" /> <effectiveTime value="143767047861" /> <value unit="%" xsi: type="PQ" value="25.1" /> <interpretationCode codeSystem="local" code= "*" /> <referenceRange> <observationRange> < text>40.0-54.0</text> </observationRange> </referenceRange> </observation> </component> </organizer> </entry> <entry> < organizer moodCode="EVN" classCode="BATTERY"> <templateId root= "16.840.1.116276.10.4.1" /> <id nullFlavor="NA" /> <code codeSystem="local" code="RENAL" displayName="RENAL FUNCTION PANEL" /> < statusCode code="completed" /> <component> <observation moodCode= "EVN" classCode="OBS"> <templateId root="16.840.1.292516.10..4.2 " /> <id nullFlavor="NA" /> <code codeSystem="local" code="K" displayName="POTASSIUM" /> <statusCode code="completed" /> < effectiveTime value="260873372353" /> <value unit="mmol/L" xsi:type="PQ " value="3.5" /> <referenceRange> <observationRange> <text>3.5-5.3</text> </observationRange> </ referenceRange> </observation> </component> <component> <observation moodCode="EVN" classCode="OBS"> <templateId root= "12.02.840.1.719517.10..22.4.2" /> <id nullFlavor="NA" /> < code codeSystem="local" code="eGFR" displayName="EST GFR (MDRD)" /> < statusCode code="completed" /> <effectiveTime value="563324604525" /> <value unit="mL/min" xsi:type="PQ" value="58" /> < interpretationCode codeSystem="local" code="*" /> <referenceRange> <observationRange> <text>> 59</text> </ observationRange> </referenceRange> </observation> </ component> <component> <observation moodCode="EVN" classCode="OBS"> <templateId root="12.02.840.1.875704.10.20.22.4.2" /> <id nullFlavor="NA" /> <code codeSystem="local" code="GAP" displayName= "ANION GAP" /> <statusCode code="completed" /> <effectiveTime value="347518116381" /> <value unit="mmol/L" xsi:type="PQ" value="11" / > <referenceRange> <observationRange> <text>5- 15</text> </observationRange> </referenceRange> </ observation> </component> <component> <observation moodCode= "EVN" classCode="OBS"> <templateId root="[id number] " /> <id nullFlavor="NA" /> <code codeSystem="local" code= "eCrCl" displayName="EST CrCl (CG)" /> <statusCode code="completed" /> <effectiveTime value="[id number]" /> <value unit="mL/min" xsi:type="PQ" value="60" /> <referenceRange> < observationRange> <text>> 59</text> </ observationRange> </referenceRange> </observation> </ component> <component> <observation moodCode="EVN" classCode="OBS"> <templateId root="12.02.840.1.760423.10.20.22.4.2" /> <id nullFlavor="NA" /> <code codeSystem="local" code="GLU" displayName= "GLUCOSE" /> <statusCode code="completed" /> <effectiveTime value="529499208467" /> <value unit="mg/dL" xsi:type="PQ" value="90" / > <referenceRange> <observationRange> <text>70- 99</text> </observationRange> </referenceRange> </ observation> </component> <component> <observation moodCode= "EVN" classCode="OBS"> <templateId root="216.840.1.258047.08.05.22.4.2 " /> <id nullFlavor="NA" /> <code codeSystem="local" code="CA " displayName="CALCIUM" /> <statusCode code="completed" /> < effectiveTime value="225627906520" /> <value unit="mg/dL" xsi:type="PQ " value="8.2" /> <interpretationCode codeSystem="local" code="*" /> <referenceRange> <observationRange> <text>8.5- 10.1</text> </observationRange> </referenceRange> </ observation> </component> <component> <observation moodCode= "EVN" classCode="OBS"> <templateId root="16.840.1.429862..22.4.2 " /> <id nullFlavor="NA" /> <code codeSystem="local" code="BUN " displayName="BLOOD UREA NITROGEN" /> <statusCode code="completed" /> <effectiveTime value="043720121334" /> <value unit="mg/dL" xsi:type="PQ" value="14" /> <referenceRange> < observationRange> <text>7-20</text> </observationRange> </referenceRange> </observation> </component> < component> <observation moodCode="EVN" classCode="OBS"> < templateId root="16.840.1.961520.22.4.2" /> <id nullFlavor="NA " /> <code codeSystem="local" code="CREAT" displayName="CREATININE" /> <statusCode code="completed" /> <effectiveTime value= "357128771966" /> <value unit="mg/dL" xsi:type="PQ" value="1.2" /> <referenceRange> <observationRange> <text>0.7-1.3< /text> </observationRange> </referenceRange> </ observation> </component> <component> <observation moodCode= "EVN" classCode="OBS"> <templateId root="2.16.840.1.524181.08.05.22.4.2 " /> <id nullFlavor="NA" /> <code codeSystem="local" code="NA " displayName="SODIUM" /> <statusCode code="completed" /> < effectiveTime value="675304048355" /> <value unit="mmol/L" xsi:type="PQ " value="141" /> <referenceRange> <observationRange> <text>135-148</text> </observationRange> </ referenceRange> </observation> </component> <component> <observation moodCode="EVN" classCode="OBS"> <templateId root= "2.16.840.1.651794.08.05.22.4.2" /> <id nullFlavor="NA" /> < code codeSystem="local" code="CL" displayName="CHLORIDE" /> < statusCode code="completed" /> <effectiveTime value="012444345205" /> <value unit="mmol/L" xsi:type="PQ" value="107" /> < referenceRange> <observationRange> <text>98-110</text> </observationRange> </referenceRange> </observation> </component> <component> <observation moodCode="EVN" classCode ="OBS"> <templateId root="16.840.1.509299.10.20.22.4.2" /> < id nullFlavor="NA" /> <code codeSystem="local" code="CO2" displayName= "CARBON DIOXIDE" /> <statusCode code="completed" /> < effectiveTime value="845201339231" /> <value unit="mmol/L" xsi:type="PQ " value="23" /> <referenceRange> <observationRange> <text>21-32</text> </observationRange> </ referenceRange> </observation> </component> <component> <observation moodCode="EVN" classCode="OBS"> <templateId root= "12.02.840.1.114805.10.22.4.2" /> <id nullFlavor="NA" /> < code codeSystem="local" code="ALB" displayName="ALBUMIN" /> < statusCode code="completed" /> <effectiveTime value="503718498739" /> <value unit="gm/dL" xsi:type="PQ" value="2.8" /> < interpretationCode codeSystem="local" code="*" /> <referenceRange> <observationRange> <text>3.4-5.0</text> </ observationRange> </referenceRange> </observation> </ component> <component> <observation moodCode="EVN" classCode="OBS"> <templateId root="12.02.840.1.312545.10.20.22.4.2" /> <id nullFlavor="NA" /> <code codeSystem="local" code="PHOS" displayName= "PHOSPHORUS" /> <statusCode code="completed" /> < effectiveTime value="961395576249" /> <value unit="mg/dL" xsi:type="PQ " value="3.1" /> <referenceRange> <observationRange> <text>2.5-4.9</text> </observationRange> </ referenceRange> </observation> </component> </organizer> </entry > <entry> <organizer moodCode="EVN" classCode="BATTERY"> <templateId root="12.02.840.1.147099.10..22.4.1" /> <id nullFlavor="NA" /> <code codeSystem="local" code="MAG" displayName="MAGNESIUM" /> <statusCode code= "completed" /> <component> <observation moodCode="EVN" classCode= "OBS"> <templateId root="840.1.370753...4.2" /> < id nullFlavor="NA" /> <code codeSystem="local" code="MAG" displayName= "MAGNESIUM" /> <statusCode code="completed" /> <effectiveTime value="291942919395" /> <value unit="mg/dL" xsi:type="PQ" value="1.9" / > <referenceRange> <observationRange> <text>1.8 -2.4</text> </observationRange> </referenceRange> </ observation> </component> </organizer> </entry> <entry> <organizer moodCode="EVN" classCode="BATTERY"> <templateId root= "840.1.892506.10..22.4.1" /> <id nullFlavor="NA" /> <code codeSystem="local" code="CBCD" displayName="CBC W/DIFF" /> <statusCode code ="completed" /> <component> <observation moodCode="EVN" classCode= "OBS"> <templateId root="12.02.840.1.677413.10..22.4.2" /> < id nullFlavor="NA" /> <code codeSystem="local" code="BA#" displayName= "BASOPHIL #" /> <statusCode code="completed" /> < effectiveTime value="270711917966" /> <value unit="k/cumm" xsi:type="PQ " value="0.0" /> <referenceRange> <observationRange> <text>0.0-0.2</text> </observationRange> </ referenceRange> </observation> </component> <component> <observation moodCode="EVN" classCode="OBS"> <templateId root= "2.16.840.1.045651.10..4.2" /> <id nullFlavor="NA" /> < code codeSystem="local" code="BA%" displayName="BASOPHIL %" /> <statusCode code="completed" /> <effectiveTime value="469601209166" /> <value unit="%" xsi:type="PQ" value="0.2" /> < referenceRange> <observationRange> <text>0-1</text> </observationRange> </referenceRange> </observation> </component> <component> <observation moodCode="EVN" classCode= "OBS"> <templateId root="2.16.840.1.953741.10...4.2" /> < id nullFlavor="NA" /> <code codeSystem="local" code="EO#" displayName= "EOSINOPHIL #" /> <statusCode code="completed" /> < effectiveTime value="972720309111" /> <value unit="k/cumm" xsi:type="PQ " value="0.2" /> <referenceRange> <observationRange> <text>0.1-0.5</text> </observationRange> </ referenceRange> </observation> </component> <component> <observation moodCode="EVN" classCode="OBS"> <templateId root= "12.02.840.1.813550.10.20.22.4.2" /> <id nullFlavor="NA" /> < code codeSystem="local" code="EO%" displayName="EOSINOPHIL %" /> <statusCode code="completed" /> <effectiveTime value="723521140014" /> <value unit="%" xsi:type="PQ" value="2.6" /> < referenceRange> <observationRange> <text>2-4</text> </observationRange> </referenceRange> </observation> </component> <component> <observation moodCode="EVN" classCode= "OBS"> <templateId root="12.02.840.1.915702.10.2022.4.2" /> < id nullFlavor="NA" /> <code codeSystem="local" code="GR#" displayName= "GRANULOCYTE #" /> <statusCode code="completed" /> < effectiveTime value="" /> <value unit="k/cumm" xsi:type="PQ " value="4.0" /> <referenceRange> <observationRange> <text>2.0-9.0</text> </observationRange> </ referenceRange> </observation> </component> <component> <observation moodCode="EVN" classCode="OBS"> <templateId root= "12.02.840.1.889197.10.20.22.4.2" /> <id nullFlavor="NA" /> < code codeSystem="local" code="GR%" displayName="GRANULOCYTE %" /> <statusCode code="completed" /> <effectiveTime value="032488525150 " /> <value unit="%" xsi:type="PQ" value="64.9" /> < referenceRange> <observationRange> <text>50-75</text> </observationRange> </referenceRange> </observation> </component> <component> <observation moodCode="EVN" classCode= "OBS"> <templateId root="16.840.1.603220.10..4.2" /> < id nullFlavor="NA" /> <code codeSystem="local" code="LY#" displayName= "LYMPHOCYTE #" /> <statusCode code="completed" /> < effectiveTime value="816270183501" /> <value unit="k/cumm" xsi:type="PQ " value="1.5" /> <referenceRange> <observationRange> <text>1.0-4.0</text> </observationRange> </ referenceRange> </observation> </component> <component> <observation moodCode="EVN" classCode="OBS"> <templateId root= "12.02.840.1.555425.104.2" /> <id nullFlavor="NA" /> < code codeSystem="local" code="LY%" displayName="LYMPHOCYTE %" /> <statusCode code="completed" /> <effectiveTime value="195665298793" /> <value unit="%" xsi:type="PQ" value="24.1" /> < referenceRange> <observationRange> <text>20-30</text> </observationRange> </referenceRange> </observation> </component> <component> <observation moodCode="EVN" classCode= "OBS"> <templateId root="12.02.840.1.925794.10.2022.4.2" /> < id nullFlavor="NA" /> <code codeSystem="local" code="MCH" displayName= "MEAN CELL HGB" /> <statusCode code="completed" /> < effectiveTime value="008754022443" /> <value unit="pg" xsi:type="PQ" value="31.3" /> <referenceRange> <observationRange> <text>27.0-33.0</text> </observationRange> </ referenceRange> </observation> </component> <component> <observation moodCode="EVN" classCode="OBS"> <templateId root= "216.840.1.146973.10..4.2" /> <id nullFlavor="NA" /> < code codeSystem="local" code="MCHC" displayName="MEAN CELL HGB CONCENTRATION" / > <statusCode code="completed" /> <effectiveTime value= "487109879444" /> <value unit="g/dL" xsi:type="PQ" value="34.9" /> <referenceRange> <observationRange> <text>32.0- 37.0</text> </observationRange> </referenceRange> </ observation> </component> <component> <observation moodCode= "EVN" classCode="OBS"> <templateId root="12.02.840.1.234106.10..4.2 " /> <id nullFlavor="NA" /> <code codeSystem="local" code="MCV " displayName="MEAN CELL VOLUME" /> <statusCode code="completed" /> <effectiveTime value="593358645698" /> <value unit="fl" xsi:type ="PQ" value="89.8" /> <referenceRange> <observationRange> <text>80.0-100.0</text> </observationRange> </ referenceRange> </observation> </component> <component> <observation moodCode="EVN" classCode="OBS"> <templateId root= "12.02.840.1.037557.10..22.4.2" /> <id nullFlavor="NA" /> < code codeSystem="local" code="MO#" displayName="MONOCYTE #" /> < statusCode code="completed" /> <effectiveTime value="164464981889" /> <value unit="k/cumm" xsi:type="PQ" value="0.4" /> < referenceRange> <observationRange> <text>0.1-1.0</text> </observationRange> </referenceRange> </observation > </component> <component> <observation moodCode="EVN" classCode="OBS"> <templateId root="2.16.840.1.631931.08.05.22.4.2" /> <id nullFlavor="NA" /> <code codeSystem="local" code="MO% " displayName="MONOCYTE %" /> <statusCode code="completed" /> <effectiveTime value="236075655434" /> <value unit="%" xsi: type="PQ" value="7.2" /> <interpretationCode codeSystem="local" code="* " /> <referenceRange> <observationRange> <text> 4-6</text> </observationRange> </referenceRange> </ observation> </component> <component> <observation moodCode= "EVN" classCode="OBS"> <templateId root="216.840.1.864155.10.4.2 " /> <id nullFlavor="NA" /> <code codeSystem="local" code= "MPVT" displayName="MEAN PLATELET VOLUME" /> <statusCode code= "completed" /> <effectiveTime value="209137359314" /> <value unit="fl" xsi:type="PQ" value="9.8" /> <referenceRange> < observationRange> <text>8.5-10.9</text> </ observationRange> </referenceRange> </observation> </ component> <component> <observation moodCode="EVN" classCode="OBS"> <templateId root="216.840.1.146844.10..4.2" /> <id nullFlavor="NA" /> <code codeSystem="local" code="RBC" displayName=" RED BLOOD CELL" /> <statusCode code="completed" /> < effectiveTime value="" /> <value unit="m/cumm" xsi:type="PQ " value="2.65" /> <interpretationCode codeSystem="local" code="*" /> <referenceRange> <observationRange> <text>4.00- 6.00</text> </observationRange> </referenceRange> </ observation> </component> <component> <observation moodCode= "EVN" classCode="OBS"> <templateId root="12.02.840.1.463140.08.05.22.4.2 " /> <id nullFlavor="NA" /> <code codeSystem="local" code="RDW " displayName="RED CELL DISTRIBUTION WIDTH" /> <statusCode code= "completed" /> <effectiveTime value="640750920068" /> <value unit="%" xsi:type="PQ" value="13.7" /> <referenceRange> <observationRange> <text>11.0-15.6</text> </ observationRange> </referenceRange> </observation> </ component> <component> <observation moodCode="EVN" classCode="OBS"> <templateId root="216.840.1.593388.22.4.2" /> <id nullFlavor="NA" /> <code codeSystem="local" code="WBC" displayName= "WHITE BLOOD CELL" /> <statusCode code="completed" /> < effectiveTime value="" /> <value unit="k/cumm" xsi:type="PQ " value="6.1" /> <referenceRange> <observationRange> <text>5.0-10.0</text> </observationRange> </ referenceRange> </observation> </component> <component> <observation moodCode="EVN" classCode="OBS"> <templateId root= "12.02.840.1.922776.22.4.2" /> <id nullFlavor="NA" /> < code codeSystem="local" code="HGBT" displayName="HEMOGLOBIN" /> < statusCode code="completed" /> <effectiveTime value="590521458812" /> <value unit="gm/dL" xsi:type="PQ" value="8.3" /> < interpretationCode codeSystem="local" code="*" /> <referenceRange> <observationRange> <text>14.0-18.0</text> </ observationRange> </referenceRange> </observation> </ component> <component> <observation moodCode="EVN" classCode="OBS"> <templateId root="12.02.840.1.329918..22.4.2" /> <id nullFlavor="NA" /> <code codeSystem="local" code="HCTT" displayName= "HEMATOCRIT" /> <statusCode code="completed" /> < effectiveTime value="602781134768" /> <value unit="%" xsi:type="PQ " value="23.8" /> <interpretationCode codeSystem="local" code="*" /> <referenceRange> <observationRange> <text>40.0- 54.0</text> </observationRange> </referenceRange> </ observation> </component> <component> <observation moodCode= "EVN" classCode="OBS"> <templateId root="840.1.473237.10.22.4.2 " /> <id nullFlavor="NA" /> <code codeSystem="local" code= "NRBC%" displayName="NRBC %" /> <statusCode code="completed" / > <effectiveTime value="316443563297" /> <value unit="/100WBC " xsi:type="PQ" value="0.0" /> <referenceRange> < observationRange> <text>0.0-0.0</text> </ observationRange> </referenceRange> </observation> </ component> <component> <observation moodCode="EVN" classCode="OBS"> <templateId root="12.02.840.1.715670.08.05.22.4.2" /> <id nullFlavor="NA" /> <code codeSystem="local" code="PLTT" displayName= "PLATELET COUNT" /> <statusCode code="completed" /> < effectiveTime value="033952908953" /> <value unit="k/cumm" xsi:type="PQ " value="171" /> <referenceRange> <observationRange> <text>150-400</text> </observationRange> </ referenceRange> </observation> </component> <component> <observation moodCode="EVN" classCode="OBS"> <templateId root= "12.02.840.1.830836.08.05.22.4.2" /> <id nullFlavor="NA" /> < code codeSystem="local" code="IG%" displayName="IMMATURE GRANULOCYTE %" /> <statusCode code="completed" /> <effectiveTime value= "577756230572" /> <value unit="%" xsi:type="PQ" value="1.0" /> <interpretationCode codeSystem="local" code="*" /> < referenceRange> <observationRange> <text>0.0-0.6</text> </observationRange> </referenceRange> </observation > </component> <component> <observation moodCode="EVN" classCode="OBS"> <templateId root="840.1.692301.1022.4.2" /> <id nullFlavor="NA" /> <code codeSystem="local" code="IG#" displayName="IMMATURE GRANULOCYTE #" /> <statusCode code="completed" / > <effectiveTime value="590642775256" /> <value unit="k/cumm" xsi:type="PQ" value="0.06" /> <referenceRange> < observationRange> <text>0.00-0.09</text> </ observationRange> </referenceRange> </observation> </ component> </organizer> </entry> <entry> <organizer moodCode="EVN" classCode="BATTERY"> <templateId root="840.1.964685.22.4.1" /> <id nullFlavor="NA" /> <code codeSystem="local" code="METAB" displayName="METABOLIC PANEL, BASIC" /> <statusCode code="completed" /> <component> <observation moodCode="EVN" classCode="OBS"> < templateId root="840.1.337151.1022.4.2" /> <id nullFlavor="NA " /> <code codeSystem="local" code="K" displayName="POTASSIUM" /> <statusCode code="completed" /> <effectiveTime value="191835392249 " /> <value unit="mmol/L" xsi:type="PQ" value="3.3" /> < interpretationCode codeSystem="local" code="*" /> <referenceRange> <observationRange> <text>3.5-5.3</text> </ observationRange> </referenceRange> </observation> </ component> <component> <observation moodCode="EVN" classCode="OBS"> <templateId root="16.840.1.099174.10.4.2" /> <id nullFlavor="NA" /> <code codeSystem="local" code="eGFR" displayName= "EST GFR (MDRD)" /> <statusCode code="completed" /> < effectiveTime value="535755238962" /> <value unit="mL/min" xsi:type="PQ " value="> 60" /> <referenceRange> <observationRange> <text>> 59</text> </observationRange> </ referenceRange> </observation> </component> <component> <observation moodCode="EVN" classCode="OBS"> <templateId root= "12.02.840.1.087694.08.05.224.2" /> <id nullFlavor="NA" /> < code codeSystem="local" code="GAP" displayName="ANION GAP" /> < statusCode code="completed" /> <effectiveTime value="404712397767" /> <value unit="mmol/L" xsi:type="PQ" value="9" /> < referenceRange> <observationRange> <text>5-15</text> </observationRange> </referenceRange> </observation> </component> <component> <observation moodCode="EVN" classCode= "OBS"> <templateId root="12.02.840.1.171715.08.05.22.4.2" /> < id nullFlavor="NA" /> <code codeSystem="local" code="eCrCl" displayName ="EST CrCl (CG)" /> <statusCode code="completed" /> < effectiveTime value="946705034001" /> <value unit="mL/min" xsi:type="PQ " value="> 60" /> <referenceRange> <observationRange> <text>> 59</text> </observationRange> </ referenceRange> </observation> </component> <component> <observation moodCode="EVN" classCode="OBS"> <templateId root= "12.02.840.1.645808.10..22.4.2" /> <id nullFlavor="NA" /> < code codeSystem="local" code="GLU" displayName="GLUCOSE" /> < statusCode code="completed" /> <effectiveTime value="314316452099" /> <value unit="mg/dL" xsi:type="PQ" value="95" /> < referenceRange> <observationRange> <text>70-99</text> </observationRange> </referenceRange> </observation> </component> <component> <observation moodCode="EVN" classCode= "OBS"> <templateId root="12.02.840.1.532322...4.2" /> < id nullFlavor="NA" /> <code codeSystem="local" code="CA" displayName= "CALCIUM" /> <statusCode code="completed" /> <effectiveTime value="680123485195" /> <value unit="mg/dL" xsi:type="PQ" value="8.3" / > <interpretationCode codeSystem="local" code="*" /> < referenceRange> <observationRange> <text>8.5-10.1</text > </observationRange> </referenceRange> </observation > </component> <component> <observation moodCode="EVN" classCode="OBS"> <templateId root="12.02.840.1.891725.10..22.4.2" /> <id nullFlavor="NA" /> <code codeSystem="local" code="BUN" displayName="BLOOD UREA NITROGEN" /> <statusCode code="completed" /> <effectiveTime value="843562050128" /> <value unit="mg/dL" xsi: type="PQ" value="11" /> <referenceRange> <observationRange> <text>7-20</text> </observationRange> </ referenceRange> </observation> </component> <component> <observation moodCode="EVN" classCode="OBS"> <templateId root= "2.16.840.1.026618.10..22.4.2" /> <id nullFlavor="NA" /> < code codeSystem="local" code="CREAT" displayName="CREATININE" /> < statusCode code="completed" /> <effectiveTime value="385754732525" /> <value unit="mg/dL" xsi:type="PQ" value="1.1" /> < referenceRange> <observationRange> <text>0.7-1.3</text> </observationRange> </referenceRange> </observation > </component> <component> <observation moodCode="EVN" classCode="OBS"> <templateId root="216.840.1.020792.10..22.4.2" /> <id nullFlavor="NA" /> <code codeSystem="local" code="NA" displayName="SODIUM" /> <statusCode code="completed" /> < effectiveTime value="613027810888" /> <value unit="mmol/L" xsi:type="PQ " value="140" /> <referenceRange> <observationRange> <text>135-148</text> </observationRange> </ referenceRange> </observation> </component> <component> <observation moodCode="EVN" classCode="OBS"> <templateId root= "2.16.840.1.051028.22.4.2" /> <id nullFlavor="NA" /> < code codeSystem="local" code="CL" displayName="CHLORIDE" /> < statusCode code="completed" /> <effectiveTime value="771759945765" /> <value unit="mmol/L" xsi:type="PQ" value="108" /> < referenceRange> <observationRange> <text>98-110</text> </observationRange> </referenceRange> </observation> </component> <component> <observation moodCode="EVN" classCode ="OBS"> <templateId root="840.1.411953.08.05.22.4.2" /> < id nullFlavor="NA" /> <code codeSystem="local" code="CO2" displayName= "CARBON DIOXIDE" /> <statusCode code="completed" /> < effectiveTime value="093110162645" /> <value unit="mmol/L" xsi:type="PQ " value="23" /> <referenceRange> <observationRange> <text>21-32</text> </observationRange> </ referenceRange> </observation> </component> </organizer> </entry > <entry> <organizer moodCode="EVN" classCode="BATTERY"> <templateId root="840.1.659117.08.05.22.4.1" /> <id nullFlavor="NA" /> <code codeSystem="local" code="PHOS" displayName="PHOSPHORUS" /> <statusCode code ="completed" /> <component> <observation moodCode="EVN" classCode= "OBS"> <templateId root="840.1.984704.22.4.2" /> < id nullFlavor="NA" /> <code codeSystem="local" code="PHOS" displayName= "PHOSPHORUS" /> <statusCode code="completed" /> < effectiveTime value="706110331814" /> <value unit="mg/dL" xsi:type="PQ " value="3.5" /> <referenceRange> <observationRange> <text>2.5-4.9</text> </observationRange> </ referenceRange> </observation> </component> </organizer> </entry > <entry> <organizer moodCode="EVN" classCode="BATTERY"> <templateId root="12.02.840.1.630662.10..22.4.1" /> <id nullFlavor="NA" /> <code codeSystem="local" code="MAG" displayName="MAGNESIUM" /> <statusCode code= "completed" /> <component> <observation moodCode="EVN" classCode= "OBS"> <templateId root="12.02.840.1.437006.10..22.4.2" /> < id nullFlavor="NA" /> <code codeSystem="local" code="MAG" displayName= "MAGNESIUM" /> <statusCode code="completed" /> <effectiveTime value="992239372277" /> <value unit="mg/dL" xsi:type="PQ" value="1.7" / > <interpretationCode codeSystem="local" code="*" /> < referenceRange> <observationRange> <text>1.8-2.4</text> </observationRange> </referenceRange> </observation > </component> </organizer> </entry> <entry> <organizer moodCode= "EVN" classCode="BATTERY"> <templateId root="12.02.840.1.009920.10.20.22.4.1 " /> <id nullFlavor="NA" /> <code codeSystem="local" code="CBCD" displayName="CBC W/DIFF" /> <statusCode code="completed" /> <component > <observation moodCode="EVN" classCode="OBS"> <templateId root= "216.840.1.166004.08.05.22.4.2" /> <id nullFlavor="NA" /> < code codeSystem="local" code="BA#" displayName="BASOPHIL #" /> < statusCode code="completed" /> <effectiveTime value="" /> <value unit="k/cumm" xsi:type="PQ" value="0.0" /> < referenceRange> <observationRange> <text>0.0-0.2</text> </observationRange> </referenceRange> </observation > </component> <component> <observation moodCode="EVN" classCode="OBS"> <templateId root="12.02.840.1.752804.08.05.224.2" /> <id nullFlavor="NA" /> <code codeSystem="local" code="BA% " displayName="BASOPHIL %" /> <statusCode code="completed" /> <effectiveTime value="" /> <value unit="%" xsi: type="PQ" value="0.3" /> <referenceRange> <observationRange > <text>0-1</text> </observationRange> </ referenceRange> </observation> </component> <component> <observation moodCode="EVN" classCode="OBS"> <templateId root= "12.02.840.1.756233.08.05.22.4.2" /> <id nullFlavor="NA" /> < code codeSystem="local" code="EO#" displayName="EOSINOPHIL #" /> < statusCode code="completed" /> <effectiveTime value="" /> <value unit="k/cumm" xsi:type="PQ" value="0.2" /> < referenceRange> <observationRange> <text>0.1-0.5</text> </observationRange> </referenceRange> </observation > </component> <component> <observation moodCode="EVN" classCode="OBS"> <templateId root="[id number]" /> <id nullFlavor="NA" /> <code codeSystem="local" code="EO% " displayName="EOSINOPHIL %" /> <statusCode code="completed" /> <effectiveTime value="" /> <value unit="%" xsi: type="PQ" value="2.5" /> <referenceRange> <observationRange > <text>2-4</text> </observationRange> </ referenceRange> </observation> </component> <component> <observation moodCode="EVN" classCode="OBS"> <templateId root= "12.02.840.1.810886.10..4.2" /> <id nullFlavor="NA" /> < code codeSystem="local" code="GR#" displayName="GRANULOCYTE #" /> < statusCode code="completed" /> <effectiveTime value="" /> <value unit="k/cumm" xsi:type="PQ" value="3.8" /> < referenceRange> <observationRange> <text>2.0-9.0</text> </observationRange> </referenceRange> </observation > </component> <component> <observation moodCode="EVN" classCode="OBS"> <templateId root="216.840.1.123922.10.20.22.4.2" /> <id nullFlavor="NA" /> <code codeSystem="local" code="GR% " displayName="GRANULOCYTE %" /> <statusCode code="completed" /> <effectiveTime value="" /> <value unit="%" xsi: type="PQ" value="63.4" /> <referenceRange> <observationRange > <text>50-75</text> </observationRange> </ referenceRange> </observation> </component> <component> <observation moodCode="EVN" classCode="OBS"> <templateId root= "2.16.840.1.941278.10.22.4.2" /> <id nullFlavor="NA" /> < code codeSystem="local" code="LY#" displayName="LYMPHOCYTE #" /> < statusCode code="completed" /> <effectiveTime value="" /> <value unit="k/cumm" xsi:type="PQ" value="1.6" /> < referenceRange> <observationRange> <text>1.0-4.0</text> </observationRange> </referenceRange> </observation > </component> <component> <observation moodCode="EVN" classCode="OBS"> <templateId root="2.16.840.1.038502.10.22.4.2" /> <id nullFlavor="NA" /> <code codeSystem="local" code="LY% " displayName="LYMPHOCYTE %" /> <statusCode code="completed" /> <effectiveTime value="" /> <value unit="%" xsi: type="PQ" value="26.2" /> <referenceRange> <observationRange > <text>20-30</text> </observationRange> </ referenceRange> </observation> </component> <component> <observation moodCode="EVN" classCode="OBS"> <templateId root= "16.840.1.888865.10.20.22.4.2" /> <id nullFlavor="NA" /> < code codeSystem="local" code="MCH" displayName="MEAN CELL HGB" /> < statusCode code="completed" /> <effectiveTime value="" /> <value unit="pg" xsi:type="PQ" value="30.3" /> <referenceRange > <observationRange> <text>27.0-33.0</text> < /observationRange> </referenceRange> </observation> </ component> <component> <observation moodCode="EVN" classCode="OBS"> <templateId root="12.02.840.1.687517.10..22.4.2" /> <id nullFlavor="NA" /> <code codeSystem="local" code="MCHC" displayName= "MEAN CELL HGB CONCENTRATION" /> <statusCode code="completed" /> <effectiveTime value="" /> <value unit="g/dL" xsi:type= "PQ" value="33.7" /> <referenceRange> <observationRange> <text>32.0-37.0</text> </observationRange> </ referenceRange> </observation> </component> <component> <observation moodCode="EVN" classCode="OBS"> <templateId root= "12.02.840.1.448622.10.2022.4.2" /> <id nullFlavor="NA" /> < code codeSystem="local" code="MCV" displayName="MEAN CELL VOLUME" /> < statusCode code="completed" /> <effectiveTime value="" /> <value unit="fl" xsi:type="PQ" value="89.8" /> <referenceRange > <observationRange> <text>80.0-100.0</text> </observationRange> </referenceRange> </observation> </ component> <component> <observation moodCode="EVN" classCode="OBS"> <templateId root="16.840.1.193530.10..22.4.2" /> <id nullFlavor="NA" /> <code codeSystem="local" code="MO#" displayName= "MONOCYTE #" /> <statusCode code="completed" /> < effectiveTime value="" /> <value unit="k/cumm" xsi:type="PQ " value="0.4" /> <referenceRange> <observationRange> <text>0.1-1.0</text> </observationRange> </ referenceRange> </observation> </component> <component> <observation moodCode="EVN" classCode="OBS"> <templateId root= "12.02.840.1.983637.08.05.22.4.2" /> <id nullFlavor="NA" /> < code codeSystem="local" code="MO%" displayName="MONOCYTE %" /> <statusCode code="completed" /> <effectiveTime value="" /> <value unit="%" xsi:type="PQ" value="6.6" /> < interpretationCode codeSystem="local" code="*" /> <referenceRange> <observationRange> <text>4-6</text> </ observationRange> </referenceRange> </observation> </ component> <component> <observation moodCode="EVN" classCode="OBS"> <templateId root="12.02.840.1.452040...4.2" /> <id nullFlavor="NA" /> <code codeSystem="local" code="MPVT" displayName= "MEAN PLATELET VOLUME" /> <statusCode code="completed" /> < effectiveTime value="" /> <value unit="fl" xsi:type="PQ" value="9.5" /> <referenceRange> <observationRange> <text>8.5-10.9</text> </observationRange> </ referenceRange> </observation> </component> <component> <observation moodCode="EVN" classCode="OBS"> <templateId root= "16.840.1.719857.10.20.22.4.2" /> <id nullFlavor="NA" /> < code codeSystem="local" code="RBC" displayName="RED BLOOD CELL" /> < statusCode code="completed" /> <effectiveTime value="" /> <value unit="m/cumm" xsi:type="PQ" value="2.94" /> < interpretationCode codeSystem="local" code="*" /> <referenceRange> <observationRange> <text>4.00-6.00</text> </ observationRange> </referenceRange> </observation> </ component> <component> <observation moodCode="EVN" classCode="OBS"> <templateId root="16.840.1.226668.10.20.22.4.2" /> <id nullFlavor="NA" /> <code codeSystem="local" code="RDW" displayName=" RED CELL DISTRIBUTION WIDTH" /> <statusCode code="completed" /> <effectiveTime value="" /> <value unit="%" xsi:type= "PQ" value="13.9" /> <referenceRange> <observationRange> <text>11.0-15.6</text> </observationRange> </ referenceRange> </observation> </component> <component> <observation moodCode="EVN" classCode="OBS"> <templateId root= "16.840.1.888307.10.20.22.4.2" /> <id nullFlavor="NA" /> < code codeSystem="local" code="WBC" displayName="WHITE BLOOD CELL" /> < statusCode code="completed" /> <effectiveTime value="" /> <value unit="k/cumm" xsi:type="PQ" value="6.0" /> < referenceRange> <observationRange> <text>5.0-10.0</text > </observationRange> </referenceRange> </observation > </component> <component> <observation moodCode="EVN" classCode="OBS"> <templateId root="12.02.840.1.943115.1022.4.2" /> <id nullFlavor="NA" /> <code codeSystem="local" code="HGBT" displayName="HEMOGLOBIN" /> <statusCode code="completed" /> < effectiveTime value="" /> <value unit="gm/dL" xsi:type="PQ " value="8.9" /> <interpretationCode codeSystem="local" code="*" /> <referenceRange> <observationRange> <text>14.0- 18.0</text> </observationRange> </referenceRange> </ observation> </component> <component> <observation moodCode= "EVN" classCode="OBS"> <templateId root="12.02.840.1.403494.10.20.22.4.2 " /> <id nullFlavor="NA" /> <code codeSystem="local" code= "HCTT" displayName="HEMATOCRIT" /> <statusCode code="completed" /> <effectiveTime value="" /> <value unit="%" xsi: type="PQ" value="26.4" /> <interpretationCode codeSystem="local" code= "*" /> <referenceRange> <observationRange> < text>40.0-54.0</text> </observationRange> </referenceRange> </observation> </component> <component> <observation moodCode="EVN" classCode="OBS"> <templateId root= "216.840.1.641636.10...4.2" /> <id nullFlavor="NA" /> < code codeSystem="local" code="NRBC%" displayName="NRBC %" /> < statusCode code="completed" /> <effectiveTime value="" /> <value unit="/100WBC" xsi:type="PQ" value="0.0" /> < referenceRange> <observationRange> <text>0.0-0.0</text> </observationRange> </referenceRange> </observation > </component> <component> <observation moodCode="EVN" classCode="OBS"> <templateId root="12.02.840.1.389240.10..4.2" /> <id nullFlavor="NA" /> <code codeSystem="local" code="PLTT" displayName="PLATELET COUNT" /> <statusCode code="completed" /> <effectiveTime value="" /> <value unit="k/cumm" xsi:type ="PQ" value="231" /> <referenceRange> <observationRange> <text>150-400</text> </observationRange> </ referenceRange> </observation> </component> <component> <observation moodCode="EVN" classCode="OBS"> <templateId root= "216.840.1.759058.10.20.22.4.2" /> <id nullFlavor="NA" /> < code codeSystem="local" code="IG%" displayName="IMMATURE GRANULOCYTE %" /> <statusCode code="completed" /> <effectiveTime value= "" /> <value unit="%" xsi:type="PQ" value="1.0" /> <interpretationCode codeSystem="local" code="*" /> < referenceRange> <observationRange> <text>0.0-0.6</text> </observationRange> </referenceRange> </observation > </component> <component> <observation moodCode="EVN" classCode="OBS"> <templateId root="12.02.840.1.082824.08.05.22.4.2" /> <id nullFlavor="NA" /> <code codeSystem="local" code="IG#" displayName="IMMATURE GRANULOCYTE #" /> <statusCode code="completed" / > <effectiveTime value="" /> <value unit="k/cumm" xsi:type="PQ" value="0.06" /> <referenceRange> < observationRange> <text>0.00-0.09</text> </ observationRange> </referenceRange> </observation> </ component> </organizer> </entry> <entry> <organizer moodCode="EVN" classCode="BATTERY"> <templateId root="840.1.807533.08.05.22.4.1" /> <id nullFlavor="NA" /> <code codeSystem="local" code="METAB" displayName="METABOLIC PANEL, BASIC" /> <statusCode code="completed" /> <component> <observation moodCode="EVN" classCode="OBS"> < templateId root="12.02.840.1.843816.08.05.22.4.2" /> <id nullFlavor="NA " /> <code codeSystem="local" code="K" displayName="POTASSIUM" /> <statusCode code="completed" /> <effectiveTime value=" " /> <value unit="mmol/L" xsi:type="PQ" value="3.7" /> < referenceRange> <observationRange> <text>3.5-5.3</text> </observationRange> </referenceRange> </observation > </component> <component> <observation moodCode="EVN" classCode="OBS"> <templateId root="12.02.840.1.282332.10..22.4.2" /> <id nullFlavor="NA" /> <code codeSystem="local" code="eGFR" displayName="EST GFR (MDRD)" /> <statusCode code="completed" /> <effectiveTime value="" /> <value unit="mL/min" xsi:type ="PQ" value="> 60" /> <referenceRange> <observationRange > <text>> 59</text> </observationRange> </ referenceRange> </observation> </component> <component> <observation moodCode="EVN" classCode="OBS"> <templateId root= "12.02.840.1.559904.10...4.2" /> <id nullFlavor="NA" /> < code codeSystem="local" code="GAP" displayName="ANION GAP" /> < statusCode code="completed" /> <effectiveTime value="" /> <value unit="mmol/L" xsi:type="PQ" value="9" /> < referenceRange> <observationRange> <text>5-15</text> </observationRange> </referenceRange> </observation> </component> <component> <observation moodCode="EVN" classCode= "OBS"> <templateId root="12.02.840.1.752574.08.05.224.2" /> < id nullFlavor="NA" /> <code codeSystem="local" code="eCrCl" displayName ="EST CrCl (CG)" /> <statusCode code="completed" /> < effectiveTime value="" /> <value unit="mL/min" xsi:type="PQ " value="> 60" /> <referenceRange> <observationRange> <text>> 59</text> </observationRange> </ referenceRange> </observation> </component> <component> <observation moodCode="EVN" classCode="OBS"> <templateId root= "2.16.840.1.130251.08.05.224.2" /> <id nullFlavor="NA" /> < code codeSystem="local" code="GLU" displayName="GLUCOSE" /> < statusCode code="completed" /> <effectiveTime value="" /> <value unit="mg/dL" xsi:type="PQ" value="101" /> < interpretationCode codeSystem="local" code="*" /> <referenceRange> <observationRange> <text>70-99</text> </ observationRange> </referenceRange> </observation> </ component> <component> <observation moodCode="EVN" classCode="OBS"> <templateId root="2.16.840.1.427853.08.05.22.4.2" /> <id nullFlavor="NA" /> <code codeSystem="local" code="CA" displayName= "CALCIUM" /> <statusCode code="completed" /> <effectiveTime value="" /> <value unit="mg/dL" xsi:type="PQ" value="8.6" / > <referenceRange> <observationRange> <text>8.5 -10.1</text> </observationRange> </referenceRange> </ observation> </component> <component> <observation moodCode= "EVN" classCode="OBS"> <templateId root="2.16.840.1.679905.10..22.4.2 " /> <id nullFlavor="NA" /> <code codeSystem="local" code="BUN " displayName="BLOOD UREA NITROGEN" /> <statusCode code="completed" /> <effectiveTime value="" /> <value unit="mg/dL" xsi:type="PQ" value="9" /> <referenceRange> < observationRange> <text>7-20</text> </observationRange> </referenceRange> </observation> </component> < component> <observation moodCode="EVN" classCode="OBS"> < templateId root="216.840.1.613129...4.2" /> <id nullFlavor="NA " /> <code codeSystem="local" code="CREAT" displayName="CREATININE" /> <statusCode code="completed" /> <effectiveTime value= "" /> <value unit="mg/dL" xsi:type="PQ" value="1.1" /> <referenceRange> <observationRange> <text>0.7-1.3< /text> </observationRange> </referenceRange> </ observation> </component> <component> <observation moodCode= "EVN" classCode="OBS"> <templateId root="16.840.1.802288.10..22.4.2 " /> <id nullFlavor="NA" /> <code codeSystem="local" code="NA " displayName="SODIUM" /> <statusCode code="completed" /> < effectiveTime value="" /> <value unit="mmol/L" xsi:type="PQ " value="142" /> <referenceRange> <observationRange> <text>135-148</text> </observationRange> </ referenceRange> </observation> </component> <component> <observation moodCode="EVN" classCode="OBS"> <templateId root= "216.840.1.486111.10...4.2" /> <id nullFlavor="NA" /> < code codeSystem="local" code="CL" displayName="CHLORIDE" /> < statusCode code="completed" /> <effectiveTime value="" /> <value unit="mmol/L" xsi:type="PQ" value="110" /> < referenceRange> <observationRange> <text>98-110</text> </observationRange> </referenceRange> </observation> </component> <component> <observation moodCode="EVN" classCode ="OBS"> <templateId root="216.840.1.169380.08.05.22.4.2" /> < id nullFlavor="NA" /> <code codeSystem="local" code="CO2" displayName= "CARBON DIOXIDE" /> <statusCode code="completed" /> < effectiveTime value="" /> <value unit="mmol/L" xsi:type="PQ " value="23" /> <referenceRange> <observationRange> <text>21-32</text> </observationRange> </ referenceRange> </observation> </component> </organizer> </entry > <entry> <organizer moodCode="EVN" classCode="BATTERY"> <templateId root="216.840.1.833321.10...4.1" /> <id nullFlavor="NA" /> <code codeSystem="local" code="MAG" displayName="MAGNESIUM" /> <statusCode code= "completed" /> <component> <observation moodCode="EVN" classCode= "OBS"> <templateId root="2.16.840.1.368790.10.20.22.4.2" /> < id nullFlavor="NA" /> <code codeSystem="local" code="MAG" displayName= "MAGNESIUM" /> <statusCode code="completed" /> <effectiveTime value="[id number]" /> <value unit="mg/dL" xsi:type="PQ" value="2.1" / > <referenceRange> <observationRange> <text>1.8 -2.4</text> </observationRange> </referenceRange> </ observation> </component> </organizer> </entry> <entry> <organizer moodCode="EVN" classCode="BATTERY"> <templateId root= "2.16.840.1.360234.10.20.22.4.1" /> <id nullFlavor="NA" /> <code codeSystem="local" code="58827-1" displayName="Complete blood count (CBC) with automated white blood cell (WBC) differential" /> <statusCode code= "completed" /> <component> <observation moodCode="EVN" classCode= "OBS"> <templateId root="2.16.840.1.214499.10.20.22.4.2" /> < id nullFlavor="NA" /> <code codeSystem="local" code="6690-2" displayName="Blood leukocytes automated count (number/volume)" /> < statusCode code="completed" /> <effectiveTime value="[id number]" /> <value unit="10*3/uL" xsi:type="PQ" value="7.5" /> < referenceRange> <observationRange> <text>4.3-11.0</text > </observationRange> </referenceRange> </observation > </component> <component> <observation moodCode="EVN" classCode="OBS"> <templateId root="216.840.1.442869.10.20.22.4.2" /> <id nullFlavor="NA" /> <code codeSystem="local" code="789-8" displayName="Blood erythrocytes automated count (number/volume)" /> < statusCode code="completed" /> <effectiveTime value="" /> <value unit="10*6/uL" xsi:type="PQ" value="4.81" /> < referenceRange> <observationRange> <text>4.35-5.85</text > </observationRange> </referenceRange> </observation > </component> <component> <observation moodCode="EVN" classCode="OBS"> <templateId root="16.840.1.870379.10..22.4.2" /> <id nullFlavor="NA" /> <code codeSystem="local" code="58980-9 " displayName="Venous blood hemoglobin measurement (mass/volume)" /> < statusCode code="completed" /> <effectiveTime value="" /> <value unit="g/dL" xsi:type="PQ" value="14.9" /> < referenceRange> <observationRange> <text>13.3-17.7</text > </observationRange> </referenceRange> </observation > </component> <component> <observation moodCode="EVN" classCode="OBS"> <templateId root="16.840.1.370621.10.20.22.4.2" /> <id nullFlavor="NA" /> <code codeSystem="local" code="31517-0 " displayName="Blood hematocrit (volume fraction)" /> <statusCode code= "completed" /> <effectiveTime value="" /> <value unit="%" xsi:type="PQ" value="42" /> <referenceRange> < observationRange> <text>40-54</text> </observationRange > </referenceRange> </observation> </component> < component> <observation moodCode="EVN" classCode="OBS"> < templateId root="16.840.1.064817.10.20.22.4.2" /> <id nullFlavor="NA " /> <code codeSystem="local" code="787-2" displayName="Automated erythrocyte mean corpuscular volume" /> <statusCode code="completed" / > <effectiveTime value="" /> <value unit="[foz_us] " xsi:type="PQ" value="88" /> <referenceRange> < observationRange> <text>80-99</text> </observationRange > </referenceRange> </observation> </component> < component> <observation moodCode="EVN" classCode="OBS"> < templateId root="12.02.840.1.563704.10..22.4.2" /> <id nullFlavor="NA " /> <code codeSystem="local" code="785-6" displayName="Automated erythrocyte mean corpuscular hemoglobin (mass per erythrocyte)" /> < statusCode code="completed" /> <effectiveTime value="" /> <value unit="pg" xsi:type="PQ" value="31" /> <referenceRange> <observationRange> <text>25-34</text> </ observationRange> </referenceRange> </observation> </ component> <component> <observation moodCode="EVN" classCode="OBS"> <templateId root="12.02.840.1.778459.10.20.22.4.2" /> <id nullFlavor="NA" /> <code codeSystem="local" code="786-4" displayName= "Automated erythrocyte mean corpuscular hemoglobin concentration measurement ( mass/volume)" /> <statusCode code="completed" /> < effectiveTime value="" /> <value unit="g/dL" xsi:type="PQ" value="35" /> <referenceRange> <observationRange> <text>32-36</text> </observationRange> </referenceRange > </observation> </component> <component> <observation moodCode="EVN" classCode="OBS"> <templateId root= "2.16.840.1.875603.10.20.22.4.2" /> <id nullFlavor="NA" /> < code codeSystem="local" code="788-0" displayName="Automated erythrocyte distribution width ratio" /> <statusCode code="completed" /> < effectiveTime value="" /> <value unit="%" xsi:type="PQ " value="14.7" /> <interpretationCode codeSystem="local" code="" /> <referenceRange> <observationRange> <text>10.0- 14.5</text> </observationRange> </referenceRange> </ observation> </component> <component> <observation moodCode= "EVN" classCode="OBS"> <templateId root="2.16.840.1.988586.10.20.22.4.2 " /> <id nullFlavor="NA" /> <code codeSystem="local" code="777 -3" displayName="Automated blood platelet count (count/volume)" /> < statusCode code="completed" /> <effectiveTime value="" /> <value unit="10*3/uL" xsi:type="PQ" value="238" /> < referenceRange> <observationRange> <text>130-400</text> </observationRange> </referenceRange> </observation > </component> <component> <observation moodCode="EVN" classCode="OBS"> <templateId root="2.16.840.1.642809.10..22.4.2" /> <id nullFlavor="NA" /> <code codeSystem="local" code="59400-2 " displayName="Automated blood platelet mean volume measurement" /> < statusCode code="completed" /> <effectiveTime value="" /> <value unit="[[facility]]" xsi:type="PQ" value="9.9" /> < referenceRange> <observationRange> <text>7.4-10.4</text > </observationRange> </referenceRange> </observation > </component> <component> <observation moodCode="EVN" classCode="OBS"> <templateId root="2.16.840.1.739492.08.05.22.4.2" /> <id nullFlavor="NA" /> <code codeSystem="local" code="770-8" displayName="Automated blood neutrophils/100 leukocytes" /> < statusCode code="completed" /> <effectiveTime value="" /> <value unit="%" xsi:type="PQ" value="61" /> < referenceRange> <observationRange> <text>42-75</text> </observationRange> </referenceRange> </observation> </component> <component> <observation moodCode="EVN" classCode= "OBS"> <templateId root="2.16.840.1.432729.10.20.22.4.2" /> < id nullFlavor="NA" /> <code codeSystem="local" code="736-9" displayName ="Automated blood lymphocytes/100 leukocytes" /> <statusCode code= "completed" /> <effectiveTime value="" /> <value unit="%" xsi:type="PQ" value="28" /> <referenceRange> < observationRange> <text>12-44</text> </observationRange > </referenceRange> </observation> </component> < component> <observation moodCode="EVN" classCode="OBS"> < templateId root="2.16.840.1.615518.10.20.22.4.2" /> <id nullFlavor="NA " /> <code codeSystem="local" code="84867-2" displayName="Blood monocytes/100 leukocytes" /> <statusCode code="completed" /> < effectiveTime value="[id number]" /> <value unit="%" xsi:type="PQ " value="8" /> <referenceRange> <observationRange> <text>0-12</text> </observationRange> </referenceRange > </observation> </component> <component> <observation moodCode="EVN" classCode="OBS"> <templateId root= "2.16.840.1.897466.10..22.4.2" /> <id nullFlavor="NA" /> < code codeSystem="local" code="713-8" displayName="Automated blood eosinophils/ 100 leukocytes" /> <statusCode code="completed" /> < effectiveTime value="[id number]" /> <value unit="%" xsi:type="PQ " value="3" /> <referenceRange> <observationRange> <text>0-10</text> </observationRange> </referenceRange > </observation> </component> <component> <observation moodCode="EVN" classCode="OBS"> <templateId root= "2.16.840.1.923000.10.20.22.4.2" /> <id nullFlavor="NA" /> < code codeSystem="local" code="706-2" displayName="Automated blood basophils/100 leukocytes" /> <statusCode code="completed" /> <effectiveTime value="" /> <value unit="%" xsi:type="PQ" value="0" /> <referenceRange> <observationRange> <text>0-10 </text> </observationRange> </referenceRange> </ observation> </component> <component> <observation moodCode= "EVN" classCode="OBS"> <templateId root="2.16.840.1.580656.10.20.22.4.2 " /> <id nullFlavor="NA" /> <code codeSystem="local" code="751 -8" displayName="Blood neutrophils automated count (number/volume)" /> <statusCode code="completed" /> <effectiveTime value="" /> <value unit="10*3" xsi:type="PQ" value="4.6" /> < referenceRange> <observationRange> <text>1.8-7.8</text> </observationRange> </referenceRange> </observation > </component> <component> <observation moodCode="EVN" classCode="OBS"> <templateId root="2.16.840.1.968676.10.20.22.4.2" /> <id nullFlavor="NA" /> <code codeSystem="local" code="731-0" displayName="Blood lymphocytes automated count (number/volume)" /> < statusCode code="completed" /> <effectiveTime value="" /> <value unit="10*3" xsi:type="PQ" value="2.1" /> < referenceRange> <observationRange> <text>1.0-4.0</text> </observationRange> </referenceRange> </observation > </component> <component> <observation moodCode="EVN" classCode="OBS"> <templateId root="2.16.840.1.502058.10.20.22.4.2" /> <id nullFlavor="NA" /> <code codeSystem="local" code="742-7" displayName="Blood monocytes automated count (number/volume)" /> < statusCode code="completed" /> <effectiveTime value="" /> <value unit="10*3" xsi:type="PQ" value="0.6" /> < referenceRange> <observationRange> <text>0.0-1.0</text> </observationRange> </referenceRange> </observation > </component> <component> <observation moodCode="EVN" classCode="OBS"> <templateId root="2.16.840.1.521999...4.2" /> <id nullFlavor="NA" /> <code codeSystem="local" code="711-2" displayName="Automated eosinophil count" /> <statusCode code="completed " /> <effectiveTime value="" /> <value unit="10*3/ uL" xsi:type="PQ" value="0.2" /> <referenceRange> < observationRange> <text>0.0-0.3</text> </ observationRange> </referenceRange> </observation> </ component> <component> <observation moodCode="EVN" classCode="OBS"> <templateId root="216.840.1.332114.10.20.22.4.2" /> <id nullFlavor="NA" /> <code codeSystem="local" code="704-7" displayName= "Automated blood basophil count (count/volume)" /> <statusCode code= "completed" /> <effectiveTime value="" /> <value unit="10*3/uL" xsi:type="PQ" value="0.0" /> <referenceRange> <observationRange> <text>0.0-0.1</text> </ observationRange> </referenceRange> </observation> </ component> </organizer> </entry> <entry> <organizer moodCode="EVN" classCode="BATTERY"> <templateId root="216.840.1.561436.10..22.4.1" /> <id nullFlavor="NA" /> <code codeSystem="local" code="18086-7" displayName="Comprehensive metabolic panel" /> <statusCode code="completed " /> <component> <observation moodCode="EVN" classCode="OBS"> <templateId root="216.840.1.845799.10..22.4.2" /> <id nullFlavor ="NA" /> <code codeSystem="local" code="2951-2" displayName="Serum or plasma sodium measurement (moles/volume)" /> <statusCode code= "completed" /> <effectiveTime value="" /> <value unit="mmol/L" xsi:type="PQ" value="141" /> <referenceRange> <observationRange> <text>135-145</text> </ observationRange> </referenceRange> </observation> </ component> <component> <observation moodCode="EVN" classCode="OBS"> <templateId root="16.840.1.721618.10..22.4.2" /> <id nullFlavor="NA" /> <code codeSystem="local" code="2823-3" displayName= "Serum or plasma potassium measurement (moles/volume)" /> <statusCode code="completed" /> <effectiveTime value="260162097310" /> < value unit="mmol/L" xsi:type="PQ" value="3.5" /> <interpretationCode codeSystem="local" code="" /> <referenceRange> < observationRange> <text>3.6-5.0</text> </ observationRange> </referenceRange> </observation> </ component> <component> <observation moodCode="EVN" classCode="OBS"> <templateId root="12.02.840.1.467356.10...4.2" /> <id nullFlavor="NA" /> <code codeSystem="local" code="" displayName= "Serum or plasma chloride measurement (moles/volume)" /> <statusCode code="completed" /> <effectiveTime value="" /> < value unit="mmol/L" xsi:type="PQ" value="109" /> <interpretationCode codeSystem="local" code="" /> <referenceRange> < observationRange> <text>98-107</text> </observationRange > </referenceRange> </observation> </component> < component> <observation moodCode="EVN" classCode="OBS"> < templateId root="12.02.840.1.811443.10...4.2" /> <id nullFlavor="NA " /> <code codeSystem="local" code="2028-06" displayName="Carbon dioxide " /> <statusCode code="completed" /> <effectiveTime value= "" /> <value unit="mmol/L" xsi:type="PQ" value="20" /> <interpretationCode codeSystem="local" code="" /> < referenceRange> <observationRange> <text>21-32</text> </observationRange> </referenceRange> </observation> </component> <component> <observation moodCode="EVN" classCode= "OBS"> <templateId root="840.1.596198.10.20.22.4.2" /> < id nullFlavor="NA" /> <code codeSystem="local" code="75928-8" displayName="Serum or plasma anion gap determination (moles/volume)" /> <statusCode code="completed" /> <effectiveTime value="" / > <value unit="mmol/L" xsi:type="PQ" value="12" /> < referenceRange> <observationRange> <text>5-14</text> </observationRange> </referenceRange> </observation> </component> <component> <observation moodCode="EVN" classCode= "OBS"> <templateId root="216.840.1.079509.10.20.22.4.2" /> < id nullFlavor="NA" /> <code codeSystem="local" code="3094-0" displayName="Serum or plasma urea nitrogen measurement (mass/volume)" /> <statusCode code="completed" /> <effectiveTime value="" /> <value unit="mg/dL" xsi:type="PQ" value="15" /> < referenceRange> <observationRange> <text>7-18</text> </observationRange> </referenceRange> </observation> </component> <component> <observation moodCode="EVN" classCode= "OBS"> <templateId root="216.840.1.062865.10.20.22.4.2" /> < id nullFlavor="NA" /> <code codeSystem="local" code="2160-0" displayName="Serum or plasma creatinine measurement (mass/volume)" /> < statusCode code="completed" /> <effectiveTime value="" /> <value unit="mg/dL" xsi:type="PQ" value="1.10" /> < referenceRange> <observationRange> <text>0.60-1.30</text > </observationRange> </referenceRange> </observation > </component> <component> <observation moodCode="EVN" classCode="OBS"> <templateId root="2.16.840.1.536385.10..22.4.2" /> <id nullFlavor="NA" /> <code codeSystem="local" code="3097-3" displayName="Serum or plasma urea nitrogen/creatinine mass ratio" /> < statusCode code="completed" /> <effectiveTime value="887161331666" /> <value unit="" xsi:type="PQ" value="14" /> <referenceRange> <observationRange> <text>NRG</text> </ observationRange> </referenceRange> </observation> </ component> <component> <observation moodCode="EVN" classCode="OBS"> <templateId root="216.840.1.679640.10..22.4.2" /> <id nullFlavor="NA" /> <code codeSystem="local" code="34879-1" displayName= "Serum or plasma creatinine measurement with calculation of estimated glomerular filtration rate" /> <statusCode code="completed" /> <effectiveTime value="492055054003" /> <value unit="" xsi:type="PQ" value=">" /> <referenceRange> <observationRange> <text>NRG</text> </observationRange> </referenceRange > </observation> </component> <component> <observation moodCode="EVN" classCode="OBS"> <templateId root= "216.840.1.018772.10..22.4.2" /> <id nullFlavor="NA" /> < code codeSystem="local" code="2345-7" displayName="Serum or plasma glucose measurement (mass/volume)" /> <statusCode code="completed" /> <effectiveTime value="" /> <value unit="mg/dL" xsi:type="PQ " value="117" /> <interpretationCode codeSystem="local" code="" /> <referenceRange> <observationRange> <text>70-105 </text> </observationRange> </referenceRange> </ observation> </component> <component> <observation moodCode= "EVN" classCode="OBS"> <templateId root="2.16.840.1.803826.10.20.22.4.2 " /> <id nullFlavor="NA" /> <code codeSystem="local" code= "19248-3" displayName="Serum or plasma calcium measurement (mass/volume)" /> <statusCode code="completed" /> <effectiveTime value= "" /> <value unit="mg/dL" xsi:type="PQ" value="9.5" /> <referenceRange> <observationRange> <text>8.5-10.1 </text> </observationRange> </referenceRange> </ observation> </component> <component> <observation moodCode= "EVN" classCode="OBS"> <templateId root="2.16.840.1.779292.10.20.22.4.2 " /> <id nullFlavor="NA" /> <code codeSystem="local" code= "1974-11" displayName="Serum or plasma total bilirubin measurement (mass/volume) " /> <statusCode code="completed" /> <effectiveTime value= "" /> <value unit="mg/dL" xsi:type="PQ" value="1.4" /> <interpretationCode codeSystem="local" code="" /> < referenceRange> <observationRange> <text>0.1-1.0</text> </observationRange> </referenceRange> </observation > </component> <component> <observation moodCode="EVN" classCode="OBS"> <templateId root="2.16.840.1.752976.10..22.4.2" /> <id nullFlavor="NA" /> <code codeSystem="local" code="6768-" displayName="Serum or plasma alkaline phosphatase measurement (enzymatic activity/volume)" /> <statusCode code="completed" /> < effectiveTime value="" /> <value unit="U/L" xsi:type="PQ" value="78" /> <referenceRange> <observationRange> <text>40-136</text> </observationRange> </referenceRange > </observation> </component> <component> <observation moodCode="EVN" classCode="OBS"> <templateId root= "2.16.840.1.654875.10.22.4.2" /> <id nullFlavor="NA" /> < code codeSystem="local" code="1920-05" displayName="Serum or plasma aspartate aminotransferase measurement (enzymatic activity/volume)" /> < statusCode code="completed" /> <effectiveTime value="993584044991" /> <value unit="U/L" xsi:type="PQ" value="21" /> <referenceRange > <observationRange> <text>5-34</text> </ observationRange> </referenceRange> </observation> </ component> <component> <observation moodCode="EVN" classCode="OBS"> <templateId root="2.16.840.1.347125.10..22.4.2" /> <id nullFlavor="NA" /> <code codeSystem="local" code="17411-22" displayName= "Serum or plasma alanine aminotransferase measurement (enzymatic activity/volume )" /> <statusCode code="completed" /> <effectiveTime value= "" /> <value unit="U/L" xsi:type="PQ" value="20" /> <referenceRange> <observationRange> <text>0-55</text > </observationRange> </referenceRange> </observation > </component> <component> <observation moodCode="EVN" classCode="OBS"> <templateId root="2.16.840.1.696071...4.2" /> <id nullFlavor="NA" /> <code codeSystem="local" code="2885-" displayName="Serum or plasma protein measurement (mass/volume)" /> < statusCode code="completed" /> <effectiveTime value="696913662889" /> <value unit="g/dL" xsi:type="PQ" value="7.0" /> < referenceRange> <observationRange> <text>6.4-8.2</text> </observationRange> </referenceRange> </observation > </component> <component> <observation moodCode="EVN" classCode="OBS"> <templateId root="2.16.840.1.938143.08.05.22.4.2" /> <id nullFlavor="NA" /> <code codeSystem="local" code="1751-7" displayName="Serum or plasma albumin measurement (mass/volume)" /> < statusCode code="completed" /> <effectiveTime value="866895169953" /> <value unit="g/dL" xsi:type="PQ" value="4.1" /> < referenceRange> <observationRange> <text>3.2-4.5</text> </observationRange> </referenceRange> </observation > </component> <component> <observation moodCode="EVN" classCode="OBS"> <templateId root="2.16.840.1.725802.10.4.2" /> <id nullFlavor="NA" /> <code codeSystem="local" code= "CALCIUMCORR" displayName="CALCIUM CORRECTED" /> <statusCode code= "completed" /> <effectiveTime value="" /> <value unit="mg/dL" xsi:type="PQ" value="9.4" /> <referenceRange> < observationRange> <text>8.5-10.1</text> </ observationRange> </referenceRange> </observation> </ component> </organizer> </entry> <entry> <organizer moodCode="EVN" classCode="BATTERY"> <templateId root="2.16.840.1.374250.10...4.1" /> <id nullFlavor="NA" /> <code codeSystem="local" code="2157-03" displayName="Serum or plasma creatine kinase measurement (enzymatic activity/ volume)" /> <statusCode code="completed" /> <component> < observation moodCode="EVN" classCode="OBS"> <templateId root= "2.16.840.1.939169.10...4.2" /> <id nullFlavor="NA" /> < code codeSystem="local" code="2157-03" displayName="Serum or plasma creatine kinase measurement (enzymatic activity/volume)" /> <statusCode code= "completed" /> <effectiveTime value="330996759960" /> <value unit="U/L" xsi:type="PQ" value="92" /> <referenceRange> < observationRange> <text>30-200</text> </observationRange > </referenceRange> </observation> </component> </ organizer> </entry> <entry> <organizer moodCode="EVN" classCode="BATTERY"> <templateId root="2.16.840.1.236568.10..22.4.1" /> <id nullFlavor= "NA" /> <code codeSystem="local" code="16564-2" displayName="Serum or plasma troponin i.cardiac measurement (mass/volume)" /> <statusCode code= "completed" /> <component> <observation moodCode="EVN" classCode= "OBS"> <templateId root="216.840.1.232924.10..4.2" /> < id nullFlavor="NA" /> <code codeSystem="local" code="02644-8" displayName="Serum or plasma troponin i.cardiac measurement (mass/volume)" /> <statusCode code="completed" /> <effectiveTime value= "180238022238" /> <value unit="ng/mL" xsi:type="PQ" value="<" /> <referenceRange> <observationRange> <text>< 0.028</text> </observationRange> </referenceRange> </ observation> </component> </organizer> </entry> <entry> <organizer moodCode="EVN" classCode="BATTERY"> <templateId root= "216.840.1.447217.10..4.1" /> <id nullFlavor="NA" /> <code codeSystem="local" code="81187-5" displayName="Serum or plasma thyrotropin measurement by detection limit <=0.05 miu/l (units/volume)" /> < statusCode code="completed" /> <component> <observation moodCode= "EVN" classCode="OBS"> <templateId root="2.16.840.1.926134.10..22.4.2 " /> <id nullFlavor="NA" /> <code codeSystem="local" code= "77073-8" displayName="Serum or plasma thyrotropin measurement by detection limit <=0.05 miu/l (units/volume)" /> <statusCode code="completed" / > <effectiveTime value="658487264797" /> <value unit="u[iU]/mL " xsi:type="PQ" value="0.98" /> <referenceRange> < observationRange> <text>0.35-4.94</text> </ observationRange> </referenceRange> </observation> </ component> </organizer> </entry></section> Encounters ACCT No. Visit Date/Time Discharge Status Pt. Type Provider Facility Loc./Unit Complaint [id number] 02/03/2018 10:20:00 02/04/2018 12:30:00 DIS Outpatient Brandyn ORDONEZ, [facility] E.CVLO [id number] 12/29/2016 14:00:00 12/29/2016 14:00:00 DIS [facility]AC [id number] 05/03/2016 05:52:00 05/03/2016 13:50:00 DIS [facility] E.CV[facility] [id number] 11/29/2015 15:25:00 12/03/2015 12:03:00 DIS Inpatient Brandyn ORDONEZ, [facility] ER E.T4 [id number] 11/17/2015 11:06:00 11/19/2015 14:32:00 DIS Inpatient Renetta ORDONEZ, [facility] ER E.T2 [id number] 02/28/2017 00:00:00 DIS Document Registration [id number] 06/04/2018 10:22:17 06/04/2018 23:59:59 CLS Outpatient Nancie ORDONEZ, [facility] [id number] 04/30/2018 23:47:00 05/05/2018 12:19:00 DIS Inpatient Kleber ORDONEZ, [facility] W.3TN [id number] 02/03/2018 12:30:00 02/03/2018 12:30:00 CAN Outpatient Brandyn ORDONEZ, [facility] [id number] 02/07/2018 05:01:27 ACT Document Registration [id number] 02/08/2017 09:20:00 02/08/2017 12:45:00 DIS Outpatient ROBERT ORDONEZ, CORINNE Petersen [facility] XRAY [id number] 11/27/2018 14:11:00 11/27/2018 23:59:59 CLS Outpatient KOURTNEY NANCE [facility] CARD SOB,CAD,DIZZINESS [id number] 10/20/2018 10:44:00 10/20/2018 23:59:59 CLS Outpatient DAPHNE BHATT MD [facility] CARD HTN,CAD [id number] 11/16/2017 09:57:00 11/16/2017 23:59:59 CLS Outpatient TIERRA DE MD [facility] RAD H91.93 HEARING LOSS [id number] 11/16/2017 09:55:00 11/16/2017 23:59:59 CLS Outpatient DAPHNE BHATT MD [facility] LAB CONTRAST PROTOCOL [id number] 11/10/2017 11:19:00 11/10/2017 23:59:59 CLS Outpatient TIERRA DE MD [facility] RAD BILAT HEARING LOSS [id number] 10/25/2017 09:13:00 10/25/2017 12:15:00 DIS Outpatient WALI SALAZAR DO [facility] ENDO DYSPHAGIA [id number] 10/20/2017 05:38:00 10/20/2017 15:05:00 DIS Outpatient WALI SALAZAR DO [facility] PREOP EGD [id number] 03/22/2017 07:53:00 03/22/2017 23:59:59 CLS Outpatient KOURTNEY NANCE [facility] LAB CONTRAST PROTOCOL [id number] 03/22/2017 07:48:00 03/22/2017 23:59:59 CLS Outpatient MILES HOLLAND PA-C [facility] RAD INF RENAL ANEURYSM [id number] 01/07/2017 10:14:00 01/07/2017 23:59:59 CLS Outpatient MILES HOLLAND PA-C [facility] RAD AAA,LE PAD [id number] 01/04/2017 09:21:00 01/04/2017 23:59:59 CLS Outpatient GARCIA KRAFT APRN [facility] LAB AAA,PAD [id number] 04/07/2016 08:49:00 04/07/2016 23:59:59 CLS Outpatient LORENA MATA MD, I [facility] RAD N28.1 [id number] 11/27/2015 14:16:00 11/29/2015 13:50:00 DIS Inpatient NOVA ORDONEZ, DAPHNE Pollock [facility] 4TH WEAKNESS,ANEMIA, HYPOXEMIA [id number] 06/11/2015 08:27:00 06/11/2015 13:50:00 DIS Outpatient EMILEE LEUNG MD [facility] SDC [id number] 06/09/2015 10:24:00 06/09/2015 23:59:59 CLS Outpatient EMILEE LEUNG MD [facility] PREOP [id number] 05/27/2015 15:13:00 05/27/2015 23:59:59 CLS Outpatient MADISON CARL [facility] RAD [id number] 09/13/2014 09:07:00 09/13/2014 14:36:00 DIS Emergency AMELIE SANDERSON MD [facility] ER [id number] 05/06/2014 15:10:00 05/06/2014 23:59:59 CLS Outpatient DOUG SINGH MD [facility] RAD [id number] 12/19/2018 12:12:00 ACT Emergency EVON MENDOZA MD [facility] ER BLEEDING FROM RECTUM [id number] 12/11/2014 10:40:00 Document Registration [id number] 08/18/2017 11:02:39 08/18/2017 23:59:59 CLS Outpatient [id number] 08/17/2018 08:24:24 08/17/2018 23:59:59 CLS Outpatient LORENA MATA I [id number] 07/14/2016 09:30:00 07/14/2016 09:30:00 DIS Outpatient SHUN WHITE, S/P CARMEN [id number] 12/16/2015 09:45:00 12/16/2015 23:59:59 CLS Outpatient SHUN WHITE s/p carmen [id number] 11/12/2015 12:03:00 11/12/2015 12:03:00 DIS Outpatient SHUN WHITE [id number] 04/30/2018 19:43:00 04/30/2018 21:43:00 DIS Outpatient Chase Nickerson [id number] 04/30/2018 19:51:40 Document Registration
[2018-12-19] MEDS ORDERED: NS IV 1000 ML 1,000 ML IV ONE (15:16)
[2018-12-19 15:35] LABS: BASOPHILS % (AUTO) 0 % (0-10); EOSINOPHILS # (AUTO) 0.3 10^3/uL (0.0-0.3); EOSINOPHILS % (AUTO) 4 % (0-10); HEMATOCRIT 39 % (40-54); HEMOGLOBIN 13.4 G/DL (13.3-17.7); LYMPHOCYTES # (AUTO) 2.2 X 10^3 (1.0-4.0); LYMPHOCYTES % (AUTO) 35 % (12-44); MEAN CORPUSCULAR HEMOGLOBIN 31 PG (25-34); MEAN CORPUSCULAR HGB CONC 35 G/DL (32-36); MEAN CORPUSCULAR VOLUME 89 FL (80-99); MEAN PLATELET VOLUME 10.5 FL (7.4-10.4); MONOCYTES # (AUTO) 0.5 X 10^3 (0.0-1.0); MONOCYTES % (AUTO) 8 % (0-12); NEUTROPHILS # (AUTO) 3.3 X 10^3 (1.8-7.8); NEUTROPHILS % (AUTO) 53 % (42-75); PLATELET COUNT 234 10^3/uL (130-400); RED CELL DISTRIBUTION WIDTH 13.9 % (10.0-14.5); WHITE BLOOD COUNT 6.2 10^3/uL (4.3-11.0)
--- NOTE | 2018-12-19 15:52 | ED GI ---
General Chief Complaint: Abdominal/GI Problems Stated Complaint: BLEEDING FROM RECTUM Nursing Triage Note: ARRIVED VIA AMB TO TRIAGE. COMPLAINS OF PASSING BLOOD IN HIS STOOL STARTING YESTERDAY. HX OF GI BLEED AND ANEMIA. Sepsis Screen: No Definite Risk Source of Information: Patient Exam Limitations: No Limitations History of Present Illness Date Seen by Provider: Dec 19, 2018 Time Seen by Provider: 15:07 Initial Comments Here with report of passing blood in his stools that started yesterday. Apparently had some blood in his stool yesterday morning and then he got better yesterday afternoon. They called his doctor yesterday who said if it was better that was fine but if it returned then they should present to the emergency department. Patient was doing better yesterday afternoon's was not worried but this morning he had a bowel movement that was dark red and then had blood. Also has blood on the toilet paper. Has had this previously and was found to have diverticulosis that was bleeding. Does have abdominal aortic aneurysm as well but this is reportedly stable. Recently had stress test and echocardiogram which were normal per the patient and family as well. Otherwise denies complaint. Timing/Duration: 1-2 Days, Intermittent Severity/Quality: Mild, Other (rectal bleeding but no pain) Location: Other (rectal bleeding) Radiation: No Radiation Activities at Onset: None Associated Symptoms: No Back Pain, No Chest Pain, No Fever/Chills, No Nausea/ Vomiting, No Shortness of Air, No Weakness Allergies and Home Medications Allergies Coded Allergies: amoxicillin (Verified Allergy, Severe, RASH, 12/19/18) clavulanic acid (Verified Allergy, Severe, RASH, 12/19/18) Home Medications Acetaminophen 500 Mg Tablet, 1,000 MG PO DAILY PRN for PAIN OR FEVER, (Reported) Allopurinol 100 Mg Tablet, 100 MG PO DAILY, (Reported) Aspirin 81 Mg Tab.chew, 81 MG PO DAILY, (Reported) Cetirizine HCl 10 Mg Tablet, 10 MG PO DAILY, (Reported) Cholecalciferol (Vitamin D3) 2,000 Unit Tablet, 2,000 UNIT PO DAILY@1200, ( Reported) Citalopram Hydrobromide 20 Mg Tablet, 20 MG PO DAILY, (Reported) Clonazepam 1 Mg Tablet, 1 MG PO HS, (Reported) Clopidogrel Bisulfate 75 Mg Tablet, 75 MG PO DAILY, (Reported) Dexamethasone 0.5 Mg Tablet, 0.25 MG PO DAILY, (Reported) TAKE 1/2 OF (.5MG) TAB Dutasteride 0.5 Mg Capsule, 0.5 MG PO DAILY, (Reported) Fluticasone Propionate 9.9 Ml [place].susp, 1 SPRAY NSEACH HS PRN for ALLERGIES, ( Reported) Glucosamine HCl/Chondr Arora A Na 1 Each Tablet, 1 TAB PO DAILY@1200, (Reported) Krill/Wake-3/Dha/Epa/Lipids 1 Each Capsule, 500 MG PO DAILY@1200, (Reported) Losartan Potassium 50 Mg Tablet, 50 MG PO DAILY, (Reported) Multivitamin 1 Each Tablet, 0.5 TAB PO HS, (Reported) Pantoprazole Sodium 40 Mg Tablet.dr, 40 MG PO DAILY, (Reported) Spironolactone 25 Mg Tablet, 25 MG PO DAILY, (Reported) Sucralfate 1 Gm Tablet, 1 GM PO QID Prescribed by: WALI SALAZAR on 10/25/17 1119 Tamsulosin HCl 0.4 Mg Cap.er.24h, 0.4 MG PO HS, (Reported) Ubidecarenone 100 Mg Capsule, 100 MG PO HS, (Reported) Patient Home Medication List Home Medication List Reviewed: Yes Review of Systems Review of Systems Constitutional: see HPI; No chills, No fever EENTM: No Symptoms Reported Respiratory: Denies Cough, Denies Shortness of Air Cardiovascular: Denies Chest Pain, Denies Edema Gastrointestinal: Denies Constipated, Denies Diarrhea, Denies Nausea; Rectal Bleeding; Denies Vomiting Genitourinary: No Symptoms Reported Musculoskeletal: no symptoms reported All Other Systems Reviewed Negative Unless Noted: Yes Past Pdxjeum-Qrdunu-Ooqidg Hx Past Med/Social Hx: Reviewed Nursing Past Med/Soc Hx Patient Social History Alcohol Use: Denies Use Recreational Drug Use: No 2nd Hand Smoke Exposure: No Recent Foreign Travel: No Contact w/Someone Who Travel: No Recent Infectious Disease Expo: No Recent Hopitalizations: No Immunizations Up To Date Date of Pneumonia Vaccine: Jun 11, 2017 Date of Influenza Vaccine: Jul 08, 2017 Seasonal Allergies Seasonal Allergies: No Past Medical History Surgeries: Yes (HEART STENTS X8, HEART BALLOONS X5, BILAT INGUINAL HERNIA, ) Coronary Stent, Gallbladder Respiratory: Yes (USES CPAP) Sleep Apnea Currently Using CPAP: Yes Currently Using BIPAP: No Cardiac: Yes (STENTS X8 TOTAL, 5 HEART BALLOON PROCEDURES) Aneurysm, Hypertension Neurological: No Reproductive Disorders: No Sexually Transmitted Disease: No HIV/AIDS: No Gastrointestinal: Yes (dysphagi) Abdominal Hernia Musculoskeletal: Yes Arthritis Endocrine: No Loss of Vision: Denies Hearing Impairment: Hard of Hearing, Hearing Aide Left Cancer: No Psychosocial: No Integumentary: No Blood Disorders: No Family Medical History Reviewed Nursing Family Hx Heart Disease, Hypertension Physical Exam Vital Signs Vital Signs - First Documented 12/19/18 12:40 Temp 98.0 Pulse 104 Resp 16 B/P (MAP) 107/90 (96) Pulse Ox 91 O2 Delivery Room Air Capillary Refill : Less Than 3 Seconds Height/Weight/BMI Height: 6'0.00" Weight: 213lbs. 0.0oz. 96.143484er; 29.3 BMI Method:Stated General Appearance: WD/WN, no apparent distress HEENT: PERRL/EOMI, pharynx normal Neck: full range of motion, supple Respiratory: lungs clear, normal breath sounds Cardiovascular: regular rate, rhythm, no murmur Gastrointestinal: non tender, soft Extremities: non-tender, normal inspection Back: normal inspection, no CVA tenderness, no vertebral tenderness Neurologic/Psychiatric: alert, oriented x 3 Skin: normal color, warm/dry Progress/Results/Core Measures Results/Orders Lab Results Laboratory Tests Test 12/19/18 15:26 Range/Units White Blood Count 6.2 4.3-11.0 10^3/uL Red Blood Count 4.33 L 4.35-5.85 10^6/uL Hemoglobin 13.4 13.3-17.7 G/DL Hematocrit 39 L 40-54 % Mean Corpuscular Volume 89 80-99 FL Mean Corpuscular Hemoglobin 31 25-34 PG Mean Corpuscular Hemoglobin Concent 35 32-36 G/DL Red Cell Distribution Width 13.9 10.0-14.5 % Platelet Count 234 130-400 10^3/uL Mean Platelet Volume 10.5 H 7.4-10.4 FL Neutrophils (%) (Auto) 53 42-75 % Lymphocytes (%) (Auto) 35 12-44 % Monocytes (%) (Auto) 8 0-12 % Eosinophils (%) (Auto) 4 0-10 % Basophils (%) (Auto) 0 0-10 % Neutrophils # (Auto) 3.3 1.8-7.8 X 10^3 Lymphocytes # (Auto) 2.2 1.0-4.0 X 10^3 Monocytes # (Auto) 0.5 0.0-1.0 X 10^3 Eosinophils # (Auto) 0.3 0.0-0.3 10^3/uL Basophils # (Auto) 0.0 0.0-0.1 10^3/uL Sodium Level 140 135-145 MMOL/L Potassium Level 4.0 3.6-5.0 MMOL/L Chloride Level 106 98-107 MMOL/L Carbon Dioxide Level 22 21-32 MMOL/L Anion Gap 12 5-14 MMOL/L Blood Urea Nitrogen 14 7-18 MG/DL Creatinine 1.03 0.60-1.30 MG/DL Estimat Glomerular Filtration Rate > 60 BUN/Creatinine Ratio 14 Glucose Level 85 70-105 MG/DL Calcium Level 9.2 8.5-10.1 MG/DL Corrected Calcium 9.3 8.5-10.1 MG/DL Total Bilirubin 1.5 H 0.1-1.0 MG/DL Aspartate Amino Transf (AST/SGOT) 28 5-34 U/L Alanine Aminotransferase (ALT/SGPT) 25 0-55 U/L Alkaline Phosphatase 85 40-136 U/L C-Reactive Protein High Sensitivity 0.25 0.00-0.50 MG/DL Total Protein 6.5 6.4-8.2 GM/DL Albumin 3.9 3.2-4.5 GM/DL My Orders Orders - EVON MENDOZA MD Cbc With Automated Diff (12/19/18 15:16) Comprehensive Metabolic Panel (12/19/18 15:16) Hs C Reactive Protein (12/19/18 15:16) Saline Lock/Iv-Start (12/19/18 15:16) Ns Iv 1000 Ml (Sodium Chloride 0.9%) (12/19/18 15:16) Fecal Occult Bedside (12/19/18 15:16) Ct Abdomen/Pelvis W (12/19/18 17:06) Diphenhydramine Injection (Benadryl Inje (12/19/18 17:06) Methylprednisolone Sod Succ (Solu-Medrol (12/19/18 17:06) Iohexol Injection (Omnipaque 350 Mg/Ml 1 (12/19/18 17:15) Received Contrast (Contrast Received) (12/19/18 17:15) Ns (Ivpb) (Sodium Chloride 0.9% Ivpb Bag (12/19/18 17:15) Medications Given in ED Current Medications Medications Dose Ordered Sig/Jesse Route Start Time Stop Time Status Last Admin Dose Admin Iohexol 100 ml ONCE ONCE IV 12/19/18 17:15 12/19/18 17:16 DC 12/19/18 17:47 100 ML Sodium Chloride 100 ml ONCE ONCE IV 12/19/18 17:15 12/19/18 17:16 DC 12/19/18 17:47 80 ML Sodium Chloride 1,000 ml @ 0 mls/hr Q0M ONCE IV 12/19/18 15:16 12/19/18 15:18 DC 12/19/18 15:34 1,000 MLS/HR Vital Signs/I&O 12/19/18 12:40 Temp 98.0 Pulse 104 Resp 16 B/P (MAP) 107/90 (96) Pulse Ox 91 O2 Delivery Room Air Blood Pressure Mean: 96 Progress Progress Note : Progress Note Seen and evaluated. IV, labs, normal saline 1 L bolus. We will Hemoccult stool. Anticipate CT scan pending creatinine studies. Patient does get itching with IV contrast so pretreatment with Benadryl and Solu-Medrol will be done. He states that slowly had to do usually and he has no problems with contrast after that. Monitor patient. 1700: Patient does have appropriate creatinine for CT with contrast. Benadryl 25 mg IV and Solu-Medrol [address] abdomen pelvis with contrast ordered. Monitor patient. 1845: We will admit the patient here for the rectal bleeding. I did discuss the case with Dr. BHATT and she accepts patient for admission. Patient and family request Dr. Harvey for consult so that was added for the morning. I did discuss the case with Dr. Stokes at [facility] regarding patient's aneurysm. He is not concerned at current size and endoleak is this is chronic. He does want to see him after hospitalization in the next few weeks. I will cloud the films to [facility] so he can see a contrast enhanced films done today. All findings concerns were discussed with patient and family who agree with plan. Admit, observation status. Diagnostic Imaging Diagonstic Imaging: CT Plain Films/CT/US/NM/MRI: abdomen, pelvis Comments [facility] [place], [place] NAME: ANA WALKER [facility] REC#: [id number] PT STATUS: REG ER : 1935 PHYSICIAN: EVON MENDOZA MD ADMIT DATE: 12/19/18/ER Draft Date of Exam:12/19/18 CT ABDOMEN/PELVIS W PROCEDURE: CT abdomen and pelvis with contrast. TECHNIQUE: Multiple contiguous axial images were obtained through the abdomen and pelvis after administration of intravenous contrast. INDICATION: Abdominal aortic aneurysm and repair. COMPARISON: Study compared with post stent graft protocol CT abdomen and pelvis performed 03/22/2017. FINDINGS: An aortic stent graft device remains patent and is in stable position. Aneurysmal sac today measures 6.8 x 6.1 cm, previously 6.1 x 5.5 cm, increased. An endoleak present within the mid sac eccentric to the right inferiorly is present; the source is not defined. No aneurysmal rupture. No perianeurysmal fluid collection. 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 There is post-stenotic dilatation, unruptured with fusiform aneurysmal distention at 1.8 cm. This is also unchanged. There are no findings of end organ ischemia. The liver, spleen, adrenals, and pancreas are unremarkable. There are bilateral renal cortical cysts, simple and benign. No hydronephrosis. There is a small hiatal hernia with some herniation of fat and trace peritoneal fluid posterior to the heart, unchanged. There is noninflamed diverticulosis of the sigmoid colon. There are postsurgical changes of bypass at the left external iliac, common femoral, and proximal SFA. This is stable. IMPRESSION: 1. Increased aneurysmal sac size with endoleak; however, the type and source of the endoleak not defined. No evidence for rupture. 2. Postsurgical changes to the left iliofemoral artery without obstruction. 3. No findings of end organ ischemia. Noninflamed diverticulosis, benign renal cysts, retrocardiac small hiatal hernia, and fatty hernia are stable. No acute appearing abnormality. Dictated on workstation # [id number] Dict: 12/19/18 2280 Trans: 12/19/18 1813 [id number] Interpreted by: KATE RIGGS Electronically signed by: Departure Communication (Admissions) Time/Spoke to Admitting Phy: 18:46 Impression Primary Impression: Rectal bleeding Additional Impressions: Diverticulosis Qualified Codes: K57.31 - Diverticulosis of large intestine without perforation or abscess with bleeding Abdominal aortic aneurysm (AAA) greater than 5.5 cm in diameter in male Disposition: 09 ADMITTED INPATIENT Condition: Stable Admissions Decision to Admit Reason: Admit from ER (General) Decision to Admit/Date: Dec 19, 2018 Time/Decision to Admit Time: 18:46 Departure-Patient Inst. Referrals: DAPHNE BHATT MD (PCP/Family) Primary Care Physician EVON MENDOZA MD Dec 19, 2018 15:52
[2018-12-19 15:55] LABS: ALANINE AMINOTRANSFERASE 25 U/L (0-55); ALBUMIN 3.9 GM/DL (3.2-4.5); ALKALINE PHOSPHATASE 85 U/L (40-136); BILIRUBIN,TOTAL 1.5 MG/DL (0.1-1.0); BUN/CREATININE RATIO 14; CALCIUM 9.2 MG/DL (8.5-10.1); CARBON DIOXIDE 22 MMOL/L (21-32); CHLORIDE 106 MMOL/L (98-107); CREATININE SERUM 1.03 MG/DL (0.60-1.30); GFR ESTIMATED > 60; GLUCOSE 85 MG/DL (70-105); SODIUM 140 MMOL/L (135-145); TOTAL PROTEIN 6.5 GM/DL (6.4-8.2)
[2018-12-19] MEDS ORDERED: diphenhydrAMINE 50 MG/ML INJ (BENADRYL) IV STA (17:06)
[2018-12-19] MEDS ORDERED: methylPREDNISolone 125 MG (Solu-MEDROL) VIAL IV STA (17:06)
[2018-12-19] MEDS ORDERED: NS 100 ML (IVPB) BAG IV ONE (17:15)
[2018-12-19] MEDS ORDERED: IOHEXOL 350 MG/ML 100 ML (OMNIPAQUE 350) VIAL IV ONE (17:15)
[2018-12-19] MEDS ORDERED: RECEIVED CONTRAST 20 ML VIAL IV SCH (17:15)
--- NOTE | 2018-12-19 18:14 | Diagnostic Imaging Report ---
PROCEDURE: CT abdomen and pelvis with contrast. TECHNIQUE: Multiple contiguous axial images were obtained through the abdomen and pelvis after administration of intravenous contrast. INDICATION: Abdominal aortic aneurysm and repair. COMPARISON: Study compared with post stent graft protocol CT abdomen and pelvis performed 03/22/2017. FINDINGS: An aortic stent graft device remains patent and is in stable position. Aneurysmal sac today measures 6.8 x 6.1 cm, previously 6.1 x 5.5 cm, increased. An endoleak present within the mid sac eccentric to the right inferiorly is present; the source is not defined. No aneurysmal rupture. No perianeurysmal fluid collection. 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 There is post-stenotic dilatation, unruptured with fusiform aneurysmal distention at 1.8 cm. This is also unchanged. There are no findings of end organ ischemia. The liver, spleen, adrenals, and pancreas are unremarkable. There are bilateral renal cortical cysts, simple and benign. No hydronephrosis. There is a small hiatal hernia with some herniation of fat and trace peritoneal fluid posterior to the heart, unchanged. There is noninflamed diverticulosis of the sigmoid colon. There are postsurgical changes of bypass at the left external iliac, common femoral, and proximal SFA. This is stable. IMPRESSION: 1. Increased aneurysmal sac size with endoleak; however, the type and source of the endoleak not defined. No evidence for rupture. 2. Postsurgical changes to the left iliofemoral artery without obstruction. 3. No findings of end organ ischemia. Noninflamed diverticulosis, benign renal cysts, retrocardiac small hiatal hernia, and fatty hernia are stable. No acute appearing abnormality. Dictated by: Dictated on workstation # [id number]
--- NOTE | 2018-12-19 18:46 | NUR ---
CALLED FOR ROOM
[2018-12-19 19:15] VITALS: BP 146/94
--- OUTSIDE RECORDS SUMMARY | 2018-12-19 19:40 | XMS REPORT | Clinical Summary ---
Author Author [facility] Organization [facility] Address Unknown Phone Unavailable Care Team Providers [employer] Name Role Phone Michael Velasquez MD Unavailable Lesley Butcher MD PCP Source Comments Some departments are not documenting in the electronic medical record. If you do not see the information that you expected, contact Release of Information in the Health Information Management department at [phone] for further assistance in locating additional records.[facility] Allergies No Known Allergies Medications End [...] Overview: Added automatically from request for surgery [id number] Encounters Care Team Description Date Type Specialty [...] Taken Vital Sign Reading 11/29/2018 1:29 PM PAPER FOLDER Blood Pressure 116/75 11/29/2018 1:29 PM PAPER FOLDER Pulse 92 11/03/2018 11:45 AM PAPER FOLDER Temperature 37.2 C (99 F) - Respiratory Rate - 11/03/2018 11:45 AM PAPER FOLDER Oxygen Saturation 93% - Inhaled Oxygen - Concentration 11/29/2018 1:29 PM PAPER FOLDER Weight 97.1 kg (214 lb) 11/29/2018 1:29 PM PAPER FOLDER Height 182.9 cm (6') 11/29/2018 1:29 PM PAPER FOLDER Body Mass Index 29.02 Plan of Treatment [...] Type Area Manufactur er 11/16/2020 [id number]-[id number] / [id number] / [id number] Implant Cochlear Hires Ultra Right: Ear UNIDENTIFI [employer] Sterile ED G - [id number] Implanted: Qty: 1 on 02/24/2018 by Yung Moreno MD Procedures Comments Procedure Name Priority Date/Time Associated Diagnosis AUDIOMETRY WITH Routine 11/29/2018 TYMPANOMETRY 3:55 PM PAPER FOLDER COCHLEAR IMPLANT Routine 11/29/2018 OUTCOMES-AUDIOGRAM ADJACENT TISSUE TRANSFER 11/03/2018 Cochlear implant PEDICLE FLAP DEFECT 10 SQ 9:50 AM PAPER FOLDER follow-up CM OR LESS - LOWER Bilateral hearing loss, EXTREMITY unspecified hearing loss type Inactive Meniere's disease of both ears ECG-SCAN 11/03/2018 12:00 AM PAPER FOLDER TELEMETRY STRIPS-SCAN 11/03/2018 12:00 AM PAPER FOLDER from Last 3 Months Results * COCHLEAR IMPLANT OUTCOMES-AUDIOGRAM (11/29/2018) Narrative Performed At Performing Organization Address City/State/Zipcode Phone Number IN CLINIC * TELEMETRY STRIPS-SCAN (11/03/2018 12:00 AM PAPER FOLDER) Narrative Performed At Ordered by an unspecified provider. * ECG-SCAN (11/03/2018 12:00 AM PAPER FOLDER) Narrative Performed At Ordered by an unspecified provider. from Last 3 Months Insurance Payer Benefit Subscriber ID Type Phone Address Plan / Group MEDICARE MEDICARE xxxxxxxxxx Medicare PART A AND B BCBS VIVEK BCBS xxxxxxxxxxxx Medicare SUPPLEMENT Advance Directives Patient has advance care planning documents on file. For more information, please contact: [facility] [address] [place] [address]
--- OUTSIDE RECORDS SUMMARY | 2018-12-19 19:40 | XMS REPORT | Encounter Summary ---
Author Author [facility] Address Unknown Phone Unavailable Care Team Providers Care Marriage Counselor Name Role Phone Michael Velasquez MD Unavailable [...] disease of both ears [H81.03] P rocedures ME ADJT TIS TRNSFR/REARRGMT E/N/E/L DFCT 10 SQ CM/< ME ADJT TIS TRNSFR/REARRGMT E/N/E/L DFCT 10 SQ CM/< ADJACENT TISSUE TRANSFER PEDICLE FLAP (THINNING OF SCALP ABOVE MAGNET) Encounter Details Care Team Description Date Type Department Yung Moreno MD [address] [facility] [address] [address] [phone] Disorder of scalp 11/03/2018 [facility] [place] Operating Room Encounter [address] [place] [address] Social History Date Tobacco Use Types Packs/Day [...] Taken Vital Sign Reading 11/03/2018 11:45 AM SUSPENDER CUTTER Blood Pressure 118/93 11/03/2018 11:45 AM SUSPENDER CUTTER Pulse 89 11/03/2018 11:45 AM SUSPENDER CUTTER Temperature 37.2 C (99 F) - Respiratory Rate - 11/03/2018 11:45 AM SUSPENDER CUTTER Oxygen Saturation 93% - Inhaled Oxygen - Concentration 11/03/2018 7:42 AM SUSPENDER CUTTER Weight 97.1 kg (214 lb) 11/03/2018 7:42 AM SUSPENDER CUTTER Height 182.9 cm (6') 11/03/2018 7:42 AM SUSPENDER CUTTER Body Mass Index 29.02 in this encounter Discharge Instructions * Pre-Anesthesia Patient Instructions* Brigitte Simms RN - 10/16/2018 2:27 PM SUSPENDER CUTTER GENERAL INFORMATION Before you come to the hospital Make arrangements for a responsible adult to drive you home and stay with you for 24 hours following surgery. Bath/Shower Instructions Take a bath or shower with antibacterial soap the night before or the morning of your procedure. Use clean towels. Put on clean clothes after bath or shower. Avoid using lotion and oils. If you are having surgery above the waist, wear a shirt that fastens up the front. Sleep on clean sheets if bath or shower is done the night before procedure. Leave money, credit cards, jewelry, and any other valuables at home. The [facility] is not responsible for the loss or breakage of personal items. Remove nail kinyarwanda, makeup and all jewelry (including piercings) before coming to the hospital. The morning of your procedure: brush your teeth and tongue do not smoke do not shave the area where you will have surgery What to bring to the hospital ID/ Insurance Card Retirement Officer card Official documents for legal guardianship Copy of your Living Will, Advanced Directives, and/or Durable Power of Bathing Suit Maker Small bag with a few personal belongings Walker,cane, or motorized scooter Cases for glasses/hearing aids/contact lens (bring solutions for contacts) Dress in clean, loose, comfortable clothing Eating or drinking before surgery Do not eat or drink anything after 11:00 p.m. the day before your procedure ( including gum, mints, candy, or chewing tobacco) OR follow the specific instructions you were given by your Surgeon. You may have WATER ONLY up to 2 hours before arriving at the hospital. Other instructions: Other instructionsNotify your surgeon if: you become ill with a cough, fever, sore throat, nausea, vomiting or flu- like symptoms you have any open wounds/sores that are red, painful, draining, or are new since you last saw the doctor you need to cancel your procedure You will receive a call with your surgery arrival time from between 2:30pm and 4:30pm the last business day before your procedure. If you do not receive a call, please call [phone] before 4:30pm or [phone] after 4:30pm. Notify us at [facility]: if you need to cancel your procedure if you are going to [place] [address] ? Park in the P5 parking garage located at [address] [place] [address]. ? [employer] parking is available in front of [facility] between the hours of 7:00 am and 4:00 pm Tuesday through Tuesday. ? If parking in the P5 garage, take the east elevators in the parking garage to the second level and walk to the entrance of the [facility]. ? Enter through the 1st floor main entrance and check in with Information Desk. ENDER CUTTER * Pre-Anesthesia Medication Instructions* Brigitte Simms RN - 10/16/2018 2:36 PM SUSPENDER CUTTER YOUR MEDICATIONS: allopurinol (ZYLOPRIM) 100 mg tablet Take 100 [...] Take 1 mg by mouth twice daily. clopidogrel (PLAVIX) 75 mg Tab Take 75 mg by mouth Daily. dexamethasone (DECADRON) 0.5 mg tablet Take 0.5 mg by mouth twice daily. DOCOSAHEXANOIC ACID/EPA (FISH OIL PO) Take 3 Tabs by mouth Daily. lorazepam (ATIVAN) 0.5 mg tablet Take 0.5 mg by mouth Three Times Daily as needed. MULTIVITAMINS (MULTI-VITAMIN PO) Take 1 Tab by mouth Daily. spironolactone (ALDACTONE) 25 mg tablet Take 25 mg by mouth Daily. tamsulosin (FLOMAX) 0.4 mg capsule Take 0.4 mg by mouth daily. Do not crush , chew or open capsules. Take 30 minutes following the same meal each day. vitamin B complex (B COMPLEX-VITAMIN B12 PO) Take by mouth. YOUR MEDICATION INSTRUCTIONS FOR SURGERY: Before surgery Stop the following vitamins, herbals, and natural supplements 14 days before surgery: Multivitamins Fish Oil Vitamin B complex Stop the following medications 7 days before surgery: Anti-inflammatory medications such as ibuprofen (Advil, Motrin) and naproxen (Aleve) You may use acetaminophen (Tylenol) Please follow these instructions regarding your blood thinner medications: Plavix: Pharmacist will contact you regarding this medication Morning of surgery On the morning of surgery, do NOT take these medications: Remaining vitamins/supplements Ointments/creams/lotions Allopurinol Vitamin D Aldactone On the morning of surgery, take ONLY these medications with a sip (1-2 ounces) of water: Carvedilol Clonazepam Dexamethasone If needed: Lorazepam Other information Before surgery, please contact Brigitte RAMIRES, with any medicine updates or questions. E-mail: [email or web address] Before going home from the hospital, please ask your doctor when you should re- start your medicines that were stopped before surgery. ENDER CUTTER in this encounter Medications at Time of [...] for 7 days. as of this encounter Progress Notes * Ata Sanchez - 10/18/2018 8:10 AM SUSPENDER CUTTER Pre-Operative Assessment Clinic (PAC) Medication Plan: Estrada Godoy was consulted by PAC triage nurse on 10/16/18. As part of the phone call, patient was given pre-op medication instructions for upcoming surgery on 11/03/[address] Moreno. PAC triage nurse requested PAC pharmacist consult for pre-operative instructions for patient's clopidogrel (Plavix) regimen. Per Allison with Dr. Butcher (cardiology), Estrada Godoy may hold clopidogrel for 5 days prior to surgery. The plan above was communicated to the patient's during follow-up phone call on 10/18/18 and they verbalized understanding. Ata Sanchez, PharmD ENDER CUTTER * Brigitte Simms RN - 10/16/2018 2:41 PM SUSPENDER CUTTER PAC Phone Triage Note: PAC phone triage completed for procedure on 11/03/18. Patient/ were the informants for this information. This patient was scheduled for a PAC clinic visit. called this afternoon stating patient will be having labs and EKG via his PCP prior to his procedure. She stated they lived 2 [place]/2 hours away and felt it was too difficult to drive that far for a clinic visit. The PAC visit was canceled and an assessment completed over the phone. The patient denies chest pain, palpitations or SOA. He is compliant with his CPAP. He states he could walk 2 blocks and remain asymptomatic. They were advised to stop vitamins herbals and supplements 14 days prior to his procedure and avoid NSAIDS 7 days prior. He was advised he may take Carvedilol, Clonazepam, Dexamethasone and if needed, Lorazepam with sips of water only and may continue sips until 2 hours prior to check in at Admissions. Pre op instructions completed including NPO after 11 PM. They were advised PAC pharmacist would contact them re: Plavix but continue to take this until contacted. They verified understanding of all instructions. stated she would have results of lab and EKG faxed to PAC chart RN to be placed in procedure chart. No further questions at this time. ENDER CUTTER * Brigitte Simms RN - 10/16/2018 9:12 AM SUSPENDER CUTTER PAC Phone triage Note: PAC clinic visit scheduled for 10/25/18 @ 8 am. Patient has a hx of CAD, SYL, HTN , Hyperlipidemia. The patient was advised to stop vitamins (MVI, B-complex, and Fish Oil) 14 days prior to his procedure. The patient/family was agreeable to this visit. Location and contact information provided. This RN's contact information provided as well. There were no further questions at this time. ENDER CUTTER in this encounter H&P Notes * Mere Davis MD - 11/03/2018 9:01 AM SUSPENDER CUTTER Admission History and Physical Examination Name: Estrada Godoy Admission Date: 11/03/2018 Assessment/Plan: Active Problems: * No active hospital problems. * I have seen and examined the patient. The patient denies recent fever, chills, shortness of breath, or chest pain. To OR today with Dr. Moreno for right scalp soft tissue rearrangement Written informed consent was obtained and placed in the chart, all questions answered. The risks, benefits, and alternatives to the procedure were discussed with the patient, who demonstrated understanding of the above and wishes to proceed. Mere Davis MD [id number] __ Primary Care Physician: Lesley Butcher Chief Complaint: Cochlear implant revision History of Present Illness: Estrada Godoy is a 83 y.o. male with history of previous right cochlear implant who presents today for surgery. He has had chronic lightheadedness and disequilibrium since his right cochlear implant. He also has issues where the magnet will fall off if he bends over or if he gets too close to a car door. He also notes as well as his family that he has had a decline in function of the right cochlear implant over the past 2 month. He is here for revision of the overlying tissue of the CI. Past Medical History: Diagnosis Date Coronary artery disease Hearing loss SYL on CPAP Past Surgical History: Procedure Laterality Date COCHLEAR IMPLANT Right 02/24/2018 INSERTION COCHLEAR DEVICE (CPT L8614) performed by Yung Moreno MD at [facility] OR/ Periop CORONARY ANGIOPLASTY x5 HX HEART CATHETERIZATION x8 with stents Family history reviewed; non-contributory Social History Socioeconomic History Marital status: Spouse [...] file Social History Narrative Not on file Immunizations (includes history and patient reported): There is no immunization history on file for this patient. Allergies: Patient has no known allergies. Medications: Medications Prior to Admission Medication Sig allopurinol (ZYLOPRIM) 100 mg tablet Take 100 [...] Take 1 mg by mouth twice daily. clopidogrel (PLAVIX) 75 mg Tab Take 75 mg by mouth Daily. dexamethasone (DECADRON) 0.5 mg tablet Take 0.5 mg by mouth twice daily. DOCOSAHEXANOIC ACID/EPA (FISH OIL PO) Take 3 Tabs by mouth Daily. losartan (COZAAR) 50 mg tablet Take 50 [...] (B COMPLEX-VITAMIN B12 PO) Take by mouth. Review of Systems: All 13 point ROS negative except for HPI above Physical Exam: Vital Signs: Last Filed In 24 Hours Vital Signs: 24 Hour Range BP: 127/93 (11/03 0800) Temp: 37.1 C (98.8 F) (11/03 741) Pulse: 90 (11/03 741) Respirations: 21 PER MINUTE (11/03 741) SpO2: 94 % (11/03 741) O2 Delivery: None (Room Air) (11/03 741) Height: 182.9 cm (72") (11/03 741) BP: (127-140)/(93-99) Temp: [37.1 C (98.8 F)] Pulse: [90] Respirations: [21 PER MINUTE] SpO2: [94 %] O2 Delivery: None (Room Air) Neat Appearance: Yes Oral Communication: Yes Clear Voice: Yes Neuro: Left: Right: CN VII 6 10/22 CN 3,4,5,6 nl nl CN 9,10,11,12 nl nl Hearing grossly intact Normal respiratory effort No abdominal tenderness Head/Face lesions? N Ext ear/nose lesions? N Spont Nyst N Gaze Nystagmus N Affect Abnormal N Edema/extremity changes? N EOM restriction? N Orientation Abn N Lab/Radiology/Other Diagnostic Tests: reviewed Mere Davis MD Pager ENDER CUTTER Associated attestation - Yung Moreno MD - 11/03/2018 10:50 AM SUSPENDER CUTTER I agree. JL. in this encounter Miscellaneous Notes * Operative Report (DICTATED ONLY) - Yung Moreno MD - 11/03/2018 10:24 AM SUSPENDER CUTTER [address] [address] PATIENT NAME: ESTRADA GODOY MR#/PT#: [id number] Page 2 OPERATIVE REPORT DATE OF OPERATION: 11/03/2018 SURGEON: Yung Moreno M.D. SAILING INSTRUCTOR(S): Dr. Mere Werner. PREOPERATIVE DIAGNOSIS: 1. Bilateral sensorineural hearing loss. 2. Excess scalp thickness for cochlear implant. POSTOPERATIVE DIAGNOSIS: 1. Bilateral sensorineural hearing loss. 2. Excess scalp thickness for cochlear implant. OPERATIVE PROCEDURE: Local soft tissue rearrangement around the right ear for thinning of the scalp. This was above a cochlear implant. ANESTHESIA: General endotracheal tube anesthesia was used. INDICATIONS FOR OPERATIVE PROCEDURE: Mr. Godoy is an 83-year-old male who I performed a right cochlear implant on several months ago, despite the time wait, this strongest magnet does not set on his head, and it drains batteries. Because of this, I did discuss a right scalp thinning. Risks of damage to the device, scarring, bleeding and infection were discussed. DESCRIPTION AND FINDINGS OF OPERATIVE PROCEDURE: Intraoperative findings: Device was above his ear, magnet was directly above his external auditory canal. Superior incision was made and the temporalis muscle removed from above it. The galea had temporal vessels coursing through it, which made debulking this area not optimal. Satisfactory general LMA anesthesia was induced. The head of bed was turned to 90 degrees counter-clockwise. I had used the magnet to identify where the device was implanted. Superior incision around it at least 1.5 cm away from the imprint of the magnet and device. I performed a clipping and infiltrated 8 mL of 1% lidocaine with epinephrine in the planned incision site. The right temporal region was prepped and draped. We made an incision through the scalp with a 15 blade and used bipolar only. We encountered several vessels in the galeal layer. These were cauterized. We made our way down to the temporalis fascia. The temporalis fascia was removed sharply followed by an incision in the temporalis muscle, which was elevated down to identify the device magnet. The temporalis muscle was resected over the area of the magnet. The back of the galea was cauterized along its undersurface. We closed the wound in layers after copiously irrigating out with Ancef saline using 3-0 Vicryl sutures as well as Dermabond. A dressing was placed on his wound. He was aroused from anesthesia in satisfactory condition. ESTIMATED BLOOD LOSS: About 25 mL. SPECIMENS REMOVED: There were no specimens sent. COMPLICATIONS: No complications were noted. Magalis Palacios / NIRMAL /[id number] cc: - Yung Moreno M.D. ENDER CUTTER * Procedures (Immed Post or Bedside) - Mere Davis MD - 11/03/2018 9:43 AM SUSPENDER CUTTER Brief Operative Note Name: Estrada Godoy is a 83 y.o. 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 Right previous cochlear implant. Magnet in place. Overlying temporalis muscie and subcutaneous tissue over magnet reduced. Davison dressing placed at end of case Estimated Blood Loss: 30 cc Specimen(s) Removed/Disposition: none Complications: None Implants: None Drains: None Disposition: PACU - stable Mere Davis MD Pager ENDER CUTTER Associated attestation - Yung Moreno MD - 11/03/2018 10:50 AM SUSPENDER CUTTER I agree and was present the entire case. JL in this encounter Plan of Treatment Not on fileas of this encounter Procedures Comments Procedure Name Priority Date/Time Associated Diagnosis ADJACENT TISSUE TRANSFER 11/03/2018 Cochlear implant PEDICLE FLAP DEFECT 10 SQ 9:50 AM SUSPENDER CUTTER follow-up CM OR LESS - LOWER Bilateral hearing loss, EXTREMITY unspecified hearing loss type Inactive Meniere's disease of both ears TELEMETRY STRIPS-SCAN 11/03/2018 12:00 AM SUSPENDER CUTTER ECG-SCAN 11/03/2018 12:00 AM SUSPENDER CUTTER in this encounter Results * ECG-SCAN (11/03/2018 12:00 AM SUSPENDER CUTTER) Narrative Performed At Ordered by an unspecified provider. * TELEMETRY STRIPS-SCAN (11/03/2018 12:00 AM SUSPENDER CUTTER) Narrative Performed At Ordered by an unspecified provider. in this encounter Visit Diagnoses Diagnosis Sensorineural hearing loss (SNHL) of both ears - Primary in this encounter Administered Medications Action Date Dose Rate Site Medication Order MAR Action 11/03/2018 12:09 PM SUSPENDER CUTTER 650 mg acetaminophen (TYLENOL) tablet 650 mg Given 650 mg, Oral, EVERY 4 HOURS PRN, Starting Tue11/03/18 at 1200, Until Tue11/03/18 at 1429, Pain non-opioid: may be used alone or in combination with opioid analgesia, TOTAL ACETAMINOPHEN DOSE NOT TO EXCEED 4GM DAILY, fentaNYL citrate PF (SUBLIMAZE) injection 12.5 mcg [...] given intraoperatively, PACU (only) 11/03/2018 7:58 AM SUSPENDER CUTTER 1,000 mL 20 mL/hr lactated ringers infusion Given - New 1,000 mL, 1,000 mL, Intravenous, at 20 Bag mL/hr, CONTINUOUS, Starting Tue11/03/18 at 0730, Until Tue11/03/18 at 1429, Pre-Op LACTATED RINGERS IV SOLP (Cabinet Override) NOW, 1 dose, Tue11/03/18 at 0600, Created by cabinet override, Created by cabinet override, lidocaine PF 1% (10 mg/mL) injection 0.1-2 mL 0.1-2 mL, Injection, NEEDED, Starting Tue11/03/18 at 0716, Until Tue11/03/18 at 1429, Other..., for IV insertion, Pre-Op 11/03/2018 9:00 AM SUSPENDER CUTTER 2 mg midazolam (VERSED) oral solution 2 [...]
--- OUTSIDE RECORDS SUMMARY | 2018-12-19 19:40 | XMS REPORT | Encounter Summary ---
Author Author [facility] Organization [facility] Address Unknown Phone Unavailable Care Team Providers Care Buying Agent Name Role Phone Michael Velasquez MD Unavailable Lesley Butcher MD PCP Reason for Visit * Reason Comments Post Operative Visit Encounter Details Care Team Description Date Type Department Yung Moreno MD [address] [facility] [address] [place] [address] Inactive Meniere's disease of both ears (Primary Dx) 11/29/2018 Office Visit [facility] - ENT [address] [place] [address] Social History Date Tobacco Use [...] Taken Vital Sign Reading 11/29/2018 1:29 PM PREPARATION OPERATOR Blood Pressure 116/75 11/29/2018 1:29 PM PREPARATION OPERATOR Pulse 92 - Temperature - - Respiratory Rate - - Oxygen Saturation - - Inhaled Oxygen - Concentration 11/29/2018 1:29 PM PREPARATION OPERATOR Weight 97.1 kg (214 lb) 11/29/2018 1:29 PM PREPARATION OPERATOR Height 182.9 cm (6') 11/29/2018 1:29 PM PREPARATION OPERATOR Body Mass Index 29.02 in this encounter Progress Notes * Yung Moreno MD - 11/29/2018 1:50 PM PREPARATION OPERATOR Date of Service: 11/29/2018 Subjective: Estrada Godoy [...] L8614) performed by Yung Moreno MD at [facility] OR/ Periop TISSUE TRANSFER Right 11/03/2018 ADJACENT TISSUE TRANSFER PEDICLE FLAP (THINNING OF SCALP ABOVE MAGNET) performed by Yung Moreno MD at [facility] OR/Periop CORONARY ANGIOPLASTY x5 HX HEART [...] notes, Violeta Becerril Scribe. 11/29/2018 2:07 PM ARATION OPERATOR in this encounter Plan of Treatment Not on fileas of this encounter Visit Diagnoses Diagnosis Inactive Meniere's disease of both ears - Primary in this encounter
--- OUTSIDE RECORDS SUMMARY | 2018-12-19 19:40 | XMS REPORT | Encounter Summary ---
Author Author [facility] Organization [facility] Address Unknown Phone Unavailable Care Team Providers Care Electric Motor Repair Supervisor Name Role Phone Michale Velasquez MD Unavailable Lesley Butcher MD PCP Reason for Visit * Reason Comments Cochlear Implant Encounter Details Care Team Description Date Type Department Kendal Leonardo AUD [address] Orth[facility] [address] [place] [address] Sensorineural hearing loss, bilateral 11/29/2018 Clinical [facility] - ENT [address] [place] [address] Social History Date Tobacco Use [...] Kendal Leonardo AUD - 11/29/2018 2:00 PM STERILIZER OPERATOR Estrada Godoy was seen in the clinic [...] on with his implant. Internal Device Ear Drum Drier Operator Internal Device Initial Stimulation Date Surgery Date Time Post Initial Stimulation Surgeon R Advanced Bionic Toddgen Feliciano MS 03/10/18 02/24/18 8 months Yung Moreno MD Equipment: Ear Processor(s) Serial Number Magnet Strength Processor Condition R Beena CI [id number] good Programming: Impedances: within normal limits [...] Hearing Aid: Patient wears a BTE from [employer]. Drum Drier Operator: [employer] Model: Serial Numbers: Repair Warranty: L&D [...] provider to have left hearing aid checked. ILIZER OPERATOR in this encounter Plan of Treatment Not on fileas of this encounter Procedures Comments Procedure Name Priority Date/Time Associated Diagnosis AUDIOMETRY WITH Routine 11/29/2018 TYMPANOMETRY 3:55 PM STERILIZER OPERATOR COCHLEAR IMPLANT Routine 11/29/2018 OUTCOMES-AUDIOGRAM in this encounter Visit Diagnoses Diagnosis Sensorineural hearing loss, bilateral in this encounter
--- OUTSIDE RECORDS SUMMARY | 2018-12-19 19:40 | XMS REPORT | Encounter Summary ---
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] P rocedures PA ADJT TIS TRNSFR/REARRGMT E/N/E/L DFCT 10 SQ CM/< PA ADJT TIS TRNSFR/REARRGMT E/N/E/L DFCT 10 SQ CM/< ADJACENT TISSUE TRANSFER PEDICLE FLAP (THINNING OF SCALP ABOVE MAGNET) Encounter Details Care Team Description Date Type Department Yung Rose MD [address] [place] [address] [phone] 11/03/2018 Anesthesia [place] Operating Room Event [address] [place] [address] Anesthesia Record Responsible Anesthesiologist Anesthesia Start Time [...] insertion Lillie Peralta, attempts; Auscultation, End-tidal CO2; AUTO TRANSMISSION TECHNICIAN atraumatic; 11/03/18; 1046 in this encounter Social [...] Medication Order MAR Action 11/03/2018 9:54 AM FOOD BAGGING MACHINE OPERATOR 2 g ceFAZolin (ANCEF) injection Given INTRA-PROCEDURE MED, Starting Tue11/03/18 at 0954, Until Tue11/03/18 at 1054, Anesthesia Intra-op 11/03/2018 9:53 AM FOOD BAGGING MACHINE OPERATOR 4 mg dexamethasone (DECADRON) injection Given Intravenous, INTRA-PROCEDURE MED, Starting Tue11/03/18 at 0953, Until Tue11/03/18 at 1054, Anesthesia Intra-op 11/03/2018 9:51 AM FOOD BAGGING MACHINE OPERATOR 2 drops dextran 70/hypromellose (GENTEAL TEARS; Given BION TEARS) ophthalmic solution INTRA-PROCEDURE MED, Starting Tue11/03/18 at 0951, Until Tue11/03/18 at 1054, Anesthesia Intra-op 11/03/2018 10:24 AM FOOD BAGGING MACHINE OPERATOR 10 mg ePHEDrine 50 mg/mL 50 mg in sodium Bolus chloride PF 0.9% 5 mL IV syringe 5 mL, INTRA-PROCEDURE MED(CONT), Starting Tue11/03/18 at 1007, Until Tue11/03/18 at 1054, Anesthesia Intra-op 10 mg Bolus 11/03/2018 10:13 AM FOOD BAGGING MACHINE OPERATOR 10 mg Given - New Bag 11/03/2018 10:07 AM FOOD BAGGING MACHINE OPERATOR 11/03/2018 10:19 AM FOOD BAGGING MACHINE OPERATOR 25 mcg fentaNYL citrate PF (SUBLIMAZE) Given injection INTRA-PROCEDURE MED, Starting Tue11/03/18 at 0947, Until Tue11/03/18 at 1054, Anesthesia Intra-op 50 mcg Given 11/03/2018 9:47 AM FOOD BAGGING MACHINE OPERATOR 11/03/2018 9:47 AM FOOD BAGGING MACHINE OPERATOR 80 mg lidocaine (PF) injection Given INTRA-PROCEDURE MED, Starting Tue11/03/18 at 0947, Until Tue11/03/18 at 1054, Anesthesia Intra-op 11/03/2018 10:22 AM FOOD BAGGING MACHINE OPERATOR 4 mg ondansetron (ZOFRAN) injection Given Intravenous, INTRA-PROCEDURE MED, Starting Tue11/03/18 at 1022, Until Tue11/03/18 at 1054, Anesthesia Intra-op 11/03/2018 10:09 AM FOOD BAGGING MACHINE OPERATOR 100 mcg phenylephrine in NS injection syringe Given Intravenous, INTRA-PROCEDURE MED, Starting Tue11/03/18 at 0956, Until Tue11/03/18 at 1054, Anesthesia Intra-op 100 mcg Given 11/03/2018 10:05 AM FOOD BAGGING MACHINE OPERATOR 100 mcg Given 11/03/2018 10:03 AM FOOD BAGGING MACHINE OPERATOR 11/03/2018 9:55 AM FOOD BAGGING MACHINE OPERATOR 20 mg propofol (DIPRIVAN) injection Given INTRA-PROCEDURE MED, Starting Tue11/03/18 at 0947, Until Tue11/03/18 at 1054, Anesthesia Intra-op 30 mg Given 11/03/2018 9:48 AM FOOD BAGGING MACHINE OPERATOR 120 mg Given 11/03/2018 9:47 AM FOOD BAGGING MACHINE OPERATOR in this encounter
--- OUTSIDE RECORDS SUMMARY | 2018-12-19 19:40 | XMS REPORT | Encounter Summary ---
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] P rocedures CO ADJT TIS TRNSFR/REARRGMT E/N/E/L DFCT 10 SQ CM/< CO ADJT TIS TRNSFR/REARRGMT E/N/E/L DFCT 10 SQ CM/< ADJACENT TISSUE TRANSFER PEDICLE FLAP (THINNING OF SCALP ABOVE MAGNET) Encounter Details Care Team Description Date Type Department Yung Moreno MD [address] [facility] [address] [phone] ADJACENT TISSUE TRANSFER PEDICLE FLAP (THINNING OF SCALP ABOVE MAGNET) 11/03/2018 Surgery [facility] Operating Room [address] [place] [address] Social History Date Tobacco Use Types Packs/Day [...] Taken Vital Sign Reading 11/03/2018 11:45 AM JAIL KEEPER Blood Pressure 118/93 11/03/2018 11:45 AM JAIL KEEPER Pulse 89 11/03/2018 11:45 AM JAIL KEEPER Temperature 37.2 C (99 F) - Respiratory Rate - 11/03/2018 11:45 AM JAIL KEEPER Oxygen Saturation 93% - Inhaled Oxygen - Concentration 11/03/2018 7:42 AM JAIL KEEPER Weight 97.1 kg (214 lb) 11/03/2018 7:42 AM JAIL KEEPER Height 182.9 cm (6') 11/03/2018 7:42 AM JAIL KEEPER Body Mass Index 29.02 in this encounter [...] PEDICLE FLAP DEFECT 10 SQ 9:50 AM JAIL KEEPER follow-up CM OR LESS - LOWER Bilateral hearing loss, EXTREMITY unspecified hearing loss type Inactive Meniere's disease of both ears TELEMETRY STRIPS-SCAN 11/03/2018 12:00 AM JAIL KEEPER ECG-SCAN 11/03/2018 12:00 AM JAIL KEEPER in this encounter Results * ECG-SCAN (11/03/2018 12:00 AM JAIL KEEPER) Narrative Performed At Ordered by an unspecified provider. * TELEMETRY STRIPS-SCAN (11/03/2018 12:00 AM JAIL KEEPER) Narrative Performed At Ordered by an unspecified provider. in this encounter Visit Diagnoses Diagnosis Cochlear implant follow-up Other specified aftercare following surgery Bilateral hearing loss, unspecified hearing loss type Inactive Meniere's disease of both ears in this encounter Administered Medications Action Date Dose Rate Site Medication Order MAR Action 11/03/2018 12:09 PM JAIL KEEPER 650 mg acetaminophen (TYLENOL) tablet 650 mg Given 650 mg, Oral, EVERY 4 HOURS PRN, Starting Tue11/03/18 at 1200, Until Tue11/03/18 at 1429, Pain non-opioid: may be used alone or in combination with opioid analgesia, TOTAL ACETAMINOPHEN DOSE NOT TO EXCEED 4GM DAILY, 11/03/2018 10:09 AM JAIL KEEPER 1,000 mg ceFAZolin (ANCEF) injection Given INTRA-PROCEDURE [...] given intraoperatively, PACU (only) 11/03/2018 7:58 AM JAIL KEEPER 1,000 mL 20 mL/hr lactated ringers infusion Given - New 1,000 mL, 1,000 mL, Intravenous, at 20 Bag mL/hr, CONTINUOUS, Starting Tue11/03/18 at 0730, Until Tue11/03/18 at 1429, Pre-Op LACTATED RINGERS IV SOLP (Cabinet Override) NOW, 1 dose, Tue11/03/18 at 0600, Created by cabinet override, Created by cabinet override, 11/03/2018 10:10 AM JAIL KEEPER 9 mL lidocaine 1%/EPINEPHrine 1:100,000 Given injection INTRA-PROCEDURE MED, Starting Tue11/03/18 at 1010, Until Tue11/03/18 at 1047, Intra-op lidocaine PF 1% (10 mg/mL) injection 0.1-2 mL 0.1-2 mL, Injection, NEEDED, Starting Tue11/03/18 at 0716, Until Tue11/03/18 at 1429, Other..., for IV insertion, Pre-Op 11/03/2018 9:00 AM JAIL KEEPER 2 mg midazolam (VERSED) oral solution 2 [...]
--- NOTE | 2018-12-19 20:10 | NUR ---
ANA WALKER admitted to room 427-1, with an admitting diagnosis of RECTAL BLEAD AND DIVERTICULOSIS, on 12/19/18 from ED via WC, accompanied by DAUGHTER AND ED STAFF. ANA WALKER introduced to surroundings, call light, bed controls, phone, TV, temperature control, lights, meal times, smoking policy, visitor policy, side rail policy, bathrooms and showers. Patient Rights given to patient in the handbook. ANA WALKER verbalizes understanding that [facility] is not responsible for the loss or damage to any personal effects or valuables that are kept in the patients posession during their hospitalization. Patient Care Plans and Discharge Planning were discussed with the pt and family. ANA WALKER verbalizes understanding of Interdisciplinary Patient Education. Patient and/or family were informed about the Rapid Response Team and its purpose.
--- OUTSIDE RECORDS SUMMARY | 2018-12-19 20:18 | XMS REPORT | Continuity of Care Document ---
Author Author [facility] Organization [facility] & Address Unknown Phone Unavailable Allergies [...] UNKNOWN 12/29/2016 Yes NO KNOWN DRUG ALLERGIES [id number] Drug Allergy N/A N/A 02/08/2017 Yes iodine iodine Drug Allergy Moderate ITCHING 02/03/2018 Yes iodine iodine Drug Allergy Moderate ITCHING 02/03/2018 Yes amoxicillin [id number] Drug Allergy Severe RASH 12/19/2018 Yes clavulanic acid [id number] Drug Allergy Severe RASH 12/19/2018 Medications Medication Packaging Start Date Stop Date [...] Oral route EVERY OTHER DAY Krill Oil ([place] 3 & 6) 1,500 mg-165 mg-67.5 mg [...] 09/13/2014 AMELIE SANDERSON MD Ot V45.82 12/11/2014 FRANCISCO ORDONEZ, DOUG Payan Ot 729.5 12/11/2014 FRANCISCO ORDONEZ, DOUG Payan Ot 793.7 12/11/2014 FRANCISCO ORDONEZ, DOUG Payan Ot 729.5 12/11/2014 FRANCISCO ORDONEZ, DOUG Payan Ot 793.7 01/09/2015 Ot 593.2 01/09/2015 Ot 599.72 05/27/2015 FRANCISCO ORDONEZ, DOUG Payan Ot 729.5 05/27/2015 DOUG SINGH MD Ot 793.7 05/27/2015 Ot 593.2 05/27/2015 Ot 599.72 06/09/2015 FRANCISCO ORDONEZ, DOUG Payan Ot 729.5 06/09/2015 FRANCISCO ORDONEZ, DOUG Payan Ot 793.7 06/09/2015 Ot 593.2 06/09/2015 Ot 599.72 06/09/2015 MADISON CARLP Ot 715.36 06/09/2015 MADISON CARL SPRING FORMER HAND Ot 717.3 06/09/2015 MADISON CARL SPRING FORMER HAND Ot 717.40 06/09/2015 MADISON CARL SPRING FORMER HAND Ot 726.60 06/09/2015 MADISON CARL SPRING FORMER HAND Ot 727.43 06/11/2015 DOUG SINGH MD Ot 729.5 06/11/2015 DOUG SINGH MD Ot 793.7 06/11/2015 Ot 593.2 06/11/2015 Ot 599.72 06/11/2015 MADISON CARL SPRING FORMER HAND Ot 715.36 06/11/2015 MADISON CARL SPRING FORMER HAND Ot 717.3 06/11/2015 MADISON CARL SPRING FORMER HAND Ot 717.40 06/11/2015 MADISON CARL SPRING FORMER HAND Ot 726.60 06/11/2015 MADISON CARL SPRING FORMER HAND Ot 727.43 06/11/2015 XOCHITL ORDONEZ, EMILEE P [...] ORDONEZ, EMILEE P Ot E000.8 06/11/2015 XOCHITL ORDONZE, EMILEE P Ot E927.0 06/11/2015 XOCHITL ORDONEZ, EMILEE P Ot V57.1 06/17/2015 MADISON CARL SPRING FORMER HAND Ot 715.36 06/17/2015 MADISON CARL SPRING FORMER HAND Ot 717.3 06/17/2015 MADISON CARL SPRING FORMER HAND Ot 717.40 06/17/2015 MADISON CARL SPRING FORMER HAND Ot 726.60 06/17/2015 MADISON CARL SPRING FORMER HAND Ot 727.43 06/26/2015 MADISON CARL SPRING FORMER HAND Ot 715.36 06/26/2015 MADISON CARL SPRING FORMER HAND Ot 717.3 06/26/2015 MADISON CARL SPRING FORMER HAND Ot 717.40 06/26/2015 MADISON CARL SPRING FORMER HAND Ot 726.60 06/26/2015 MADISON CARL SPRING FORMER HAND Ot 727.43 11/27/2015 FRANCISCO ORDONEZ, DOUG Payan Ot 729.5 11/27/2015 DOUG SINGH MD Ot 793.7 11/27/2015 Ot 593.2 11/27/2015 Ot 599.72 11/27/2015 MADISON CARL SPRING FORMER HAND Ot 715.36 11/27/2015 MADISON CARL SPRING FORMER HAND Ot 717.3 11/27/2015 MADISON CARL SPRING FORMER HAND Ot 717.40 11/27/2015 MADISON CARL SPRING FORMER HAND Ot 726.60 11/27/2015 MADISON CARL SPRING FORMER HAND Ot 727.43 11/27/2015 XOCHITL ORDONEZ, EMILEE P Ot 836.0 11/27/2015 XOCHITL ORDONEZ, EMILEE P Ot 836.1 11/27/2015 XOCHITL RODONEZ, EMILEE P Ot E000.8 11/27/2015 XOCHITL ORDONEZ, EMILEE P Ot E928.9 11/27/2015 OXCHITL ORDONEZ, EMILEE P Ot V72.84 11/27/2015 XOCHITL ORDONEZ, EMILEE P Ot V74.8 11/29/2015 NOVA ORDONEZ, DAPHNE Pollock Ot D50.0 IRON DEFICIENCY ANEMIA SECONDARY TO [...] OTHER SPECIFIED POSTPROCEDURAL STATES 04/08/2016 LORENA MATA MD, I Ot N28.1 CYST OF KIDNEY, ACQUIRED 04/08/2016 LORENA MATA MD, I Ot N28.1 CYST OF KIDNEY, ACQUIRED 05/04/2016 ESPERANZA MD, LORENA I Ot N28.1 CYST OF KIDNEY, [...] without rupture Shun White 01/04/2017 GARCIA KRAFT FEED WEIGHER Ot I10 ESSENTIAL (PRIMARY) HYPERTENSION 01/05/2017 GARCIA KRAFT FEED WEIGHER Ot I10 ESSENTIAL (PRIMARY) HYPERTENSION 01/05/2017 GARCIA KRAFT FEED WEIGHER Ot 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, 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 01/05/2017 GARCIA KRAFT FEED WEIGHER Ot I73.9 PERIPHERAL VASCULAR DISEASE, UNSPECIFIED 01/05/2017 GARCIA KRAFT FEED WEIGHER Ot I10 ESSENTIAL (PRIMARY) HYPERTENSION 01/05/2017 GARCIA KRAFT FEED WEIGHER Ot 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, 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 01/05/2017 GARCIA KRAFT FEED WEIGHER Ot I73.9 PERIPHERAL VASCULAR DISEASE, UNSPECIFIED 01/07/2017 ESPERANZA ORDONEZ, LORENA I Ot N28.1 CYST OF KIDNEY, ACQUIRED 01/07/2017 MILES HOLLAND-C Ot 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, 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 01/10/2017 GARCIA KRAFT FEED WEIGHER Ot I10 ESSENTIAL (PRIMARY) HYPERTENSION 01/10/2017 GARCIA KRAFT FEED WEIGHER Ot 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, 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 01/10/2017 GARCIA KRAFT FEED WEIGHER Ot I73.9 PERIPHERAL VASCULAR DISEASE, UNSPECIFIED 01/10/2017 MILES HOLLAND PA-C Ot 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, 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 01/26/2017 GARCIA KRAFT FEED WEIGHER Ot I10 ESSENTIAL (PRIMARY) HYPERTENSION 01/26/2017 GARCIA KRAFT FEED WEIGHER Ot 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, 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 01/26/2017 GARCIA KRAFT FEED WEIGHER Ot I73.9 PERIPHERAL VASCULAR DISEASE, UNSPECIFIED 01/28/2017 SKYLERMILES PA-C Ot 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, 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 02/04/2017 MILES HOLLAND Randall BEAR-C Ot 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, 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 02/08/2017 ROBERT ORDONEZ, CORINNE Petersen Other T82.898A OTH COMPLICATION OF VASCULAR PROSTH DEV/GRFT, INIT 02/08/2017 ROBERT ORDONEZ, CORINNE Petersen Other Z01.812 ENCOUNTER FOR PREPROCEDURAL LABORATORY EXAMINATION 03/21/2017 ESPERANZA ORDONEZ, LORENA I Ot N28.1 CYST OF KIDNEY, ACQUIRED 03/21/2017 SKYLER MILES Pereira PA-C Ot 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, 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 03/22/2017 KOURTNEY NANCE Ot Z01.812 ENCOUNTER FOR PREPROCEDURAL LABORATORY E 03/23/2017 SKYLER MILES Pereira BEAR-C Ot 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, 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 03/23/2017 MILES HOLLAND Randall PA-C Ot K57.30 DVRTCLOS OF LG INT W/O PERFORATION OR AB 03/23/2017 MILES HOLLAND Randall PA-C Ot K76.0 FATTY (CHANGE OF) LIVER, NOT ELSEWHERE C 04/12/2017 KOURTNEY NANCE Ot Z01.812 ENCOUNTER FOR PREPROCEDURAL LABORATORY E 04/20/2017 SKYLER MILES Pereira PA-C Ot 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, 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 04/20/2017 MILES HOLLAND Randall PA-C Ot K57.30 DVRTCLOS OF LG INT W/O PERFORATION OR AB 04/20/2017 MILES HOLLAND Randall PA-C Ot K76.0 FATTY (CHANGE OF) LIVER, NOT ELSEWHERE C 04/25/2017 SKYLER MILES Pereira PA-C Ot 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, 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 04/25/2017 MILES HOLLAND PA-C Ot K57.30 DVRTCLOS OF LG INT W/O PERFORATION OR AB 04/25/2017 MILES HOLLAND PA-C Ot K76.0 FATTY (CHANGE OF) LIVER, NOT ELSEWHERE C 10/21/2017 WALI SALAZAR DO Ot R13.10 DYSPHAGIA, UNSPECIFIED 10/21/2017 WALI SALAZAR DO D Ot Z01.818 ENCOUNTER FOR OTHER PREPROCEDURAL EXAMIN 10/25/2017 GARCIA KRAFT FEED WEIGHER Ot I10 ESSENTIAL (PRIMARY) HYPERTENSION 10/25/2017 GARCIA KRAFT FEED WEIGHER Ot 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, 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 10/25/2017 GARCIA KRAFT FEED WEIGHER Ot I73.9 PERIPHERAL VASCULAR DISEASE, UNSPECIFIED 10/25/2017 WALI SALAZAR DO Ot E78.5 HYPERLIPIDEMIA, UNSPECIFIED 10/25/2017 PEDRO SALAZAR DOTT D Ot F32.9 MAJOR DEPRESSIVE DISORDER, SINGLE EPISOD 10/25/2017 PEDRO SALAZAR DOTT D Ot F41.9 ANXIETY DISORDER, UNSPECIFIED 10/25/2017 WALI SALAZAR DO D Ot G47.33 OBSTRUCTIVE SLEEP APNEA (ADULT) (PEDIATR 10/25/2017 PEDRO SALAZAR DOTT D Ot I10 ESSENTIAL (PRIMARY) HYPERTENSION 10/25/2017 WALI SALAZAR DO D Ot I25.10 ATHSCL HEART DISEASE OF [place] CORONARY 10/25/2017 WALI SALAZAR DO D Ot K21.0 GASTRO-ESOPHAGEAL REFLUX DISEASE WITH ES 10/25/2017 WALI SALAZAR DO D Ot K44.9 DIAPHRAGMATIC HERNIA WITHOUT OBSTRUCTION 10/25/2017 WALI SALAZAR DO D Ot Z79.2 FDC (CURRENT) USE OF ANTIBIOTICS 10/25/2017 WALI SALAZAR DO D Ot Z79.899 OTHER FDC (CURRENT) DRUG THERAPY 10/25/2017 WALI SALAZAR DO Ot Z95.5 PRESENCE OF CORONARY ANGIOPLASTY IMPLANT 10/27/2017 WALI SALAZAR DO Ot E78.5 HYPERLIPIDEMIA, UNSPECIFIED 10/27/2017 PEDRO SALAZAR DOTT D Ot F32.9 MAJOR DEPRESSIVE DISORDER, SINGLE EPISOD 10/27/2017 MARTIN GERBER, WALI D Ot F41.9 ANXIETY DISORDER, UNSPECIFIED 10/27/2017 PEDRO SALAZAR DOTT D Ot G47.33 OBSTRUCTIVE SLEEP APNEA (ADULT) (PEDIATR 10/27/2017 MARTIN GERBER WALI D Ot I10 ESSENTIAL (PRIMARY) HYPERTENSION 10/27/2017 PEDRO SALAZAR DOTT D Ot I25.10 ATHSCL HEART DISEASE OF [place] CORONARY 10/27/2017 SALAZAR DO, WALI D Ot K21.0 GASTRO-ESOPHAGEAL REFLUX DISEASE WITH ES 10/27/2017 SALAZAR DO, WALI D Ot K44.9 DIAPHRAGMATIC HERNIA WITHOUT OBSTRUCTION 10/27/2017 SALAZAR DO, WALI D Ot Z79.2 TAILMAN (CURRENT) USE OF ANTIBIOTICS 10/27/2017 SALAZAR DO WALI D Ot Z79.899 OTHER TAILMAN (CURRENT) DRUG THERAPY 10/27/2017 SALAZAR DO WALI D Ot Z95.5 PRESENCE OF CORONARY ANGIOPLASTY IMPLANT 10/28/2017 SALAAZR DO WALI D Ot E78.5 HYPERLIPIDEMIA, UNSPECIFIED 10/28/2017 SALAZAR DO WALI D Ot F32.9 MAJOR DEPRESSIVE DISORDER, SINGLE EPISOD 10/28/2017 SALAZAR DOWALI D Ot F41.9 ANXIETY DISORDER, UNSPECIFIED 10/28/2017 SALAZAR DO WALI D Ot G47.33 OBSTRUCTIVE SLEEP APNEA (ADULT) (PEDIATR 10/28/2017 SALAZAR DOPEDROTT D Ot I10 ESSENTIAL (PRIMARY) HYPERTENSION 10/28/2017 WALI SALAZAR DO D Ot I25.10 ATHSCL HEART DISEASE OF [place] CORONARY 10/28/2017 SALAZAR DOWALI D Ot K21.0 GASTRO-ESOPHAGEAL REFLUX DISEASE WITH ES 10/28/2017 SALAZAR DO, WALI D Ot K44.9 DIAPHRAGMATIC HERNIA WITHOUT OBSTRUCTION 10/28/2017 SALAZAR DOWALI D Ot Z79.2 TAIL[place] (CURRENT) USE OF ANTIBIOTICS 10/28/2017 SALAZAR DO WALI D Ot Z79.899 OTHER FDC (CURRENT) DRUG THERAPY 10/28/2017 SALAZAR DOWALI D Ot Z95.5 PRESENCE OF CORONARY ANGIOPLASTY IMPLANT 11/14/2017 TIERRA DE MD Ot H91.93 UNSPECIFIED HEARING LOSS, BILATERAL 11/14/2017 TIERRA DE MD Ot R93.8 ABNORMAL FINDINGS ON DIAGNOSTIC IMAGING 11/15/2017 GARCIA KRAFT APRN Ot I10 ESSENTIAL (PRIMARY) HYPERTENSION 11/15/2017 GARCIA KRAFT APRN Ot 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, 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 11/15/2017 GARCIA KRAFT APRN Ot I73.9 PERIPHERAL VASCULAR DISEASE, UNSPECIFIED 11/15/2017 TIERRA DE MD Ot H91.93 UNSPECIFIED HEARING LOSS, BILATERAL 11/15/2017 TIERRA DE MD Ot R93.8 ABNORMAL FINDINGS ON DIAGNOSTIC IMAGING 11/17/2017 KENISHA ORDONEZ, TIERRA Ot H91.93 UNSPECIFIED HEARING LOSS, BILATERAL 11/17/2017 KENISHA ORDONEZ, TIERRA Ot 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, NONRUPTURED 11/17/2017 NOVA ORDONEZ, DAPHNE Pollock Ot I10 ESSENTIAL (PRIMARY) HYPERTENSION 11/22/2017 KENISHA ORDONEZ, TIERRA Ot H91.93 UNSPECIFIED HEARING LOSS, BILATERAL 11/22/2017 KENISHA ORDONEZ, TIERRA Ot 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, [...] CEREBRAL ANEURYSM, NONRUPTURED 12/08/2017 NOVA ORDONEZ, DAPHNE Pollock Ot I10 ESSENTIAL (PRIMARY) HYPERTENSION 04/30/2018 Chase [...] OBSTRUCTIVE SLEEP APNEA (ADULT) (PEDIATRIC) 04/30/2018 Kirit Shaihd MD 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, LEFT EAR 04/30/2018 Kirit Shahid MD I25.10 ATHSCL HEART DISEASE OF [place] CORONARY ARTERY W/O 04/30/2018 Kirit Shahid MD I73.9 PERIPHERAL VASCULAR DISEASE, UNSPECIFIED 04/30/2018 Kirit Shahid MD 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 04/30/2018 Kirit hSahid MD I95.9 HYPOTENSION, UNSPECIFIED 04/30/2018 Kirit Shahid [...] GRAFT (REPLACEMENT 04/30/2018 Kirit Shahid MD Z79.02 FDC (CURRENT) USE OF ANTITHROMBOTICS/ANTIPLA 04/30/2018 Kirit Shahid MD Z79.82 FDC (CURRENT) USE OF ASPIRIN 04/30/2018 Kirit hSahid MD Z90.49 ACQUIRED ABSENCE OF OTHER SPECIFIED PARTS OF DIGES 04/30/2018 Kirit Shahid MD Z91.041 RADIOGRAPHIC DYE ALLERGY STATUS 04/30/2018 Kirit Shahid MD Z95.5 PRESENCE OF CORONARY ANGIOPLASTY IMPLANT AND GRAFT 04/30/2018 Kirit Shahid MD Z96.21 COCHLEAR IMPLANT STATUS 08/01/2018 ESPERANZALORENA HOLMAN I I10 Essential (primary) hypertension LORENA MATA I 10/24/2018 DAPHNE BHATT MD Ot H91.10 PRESBYCUSIS, UNSPECIFIED EAR 10/24/2018 DAPHNE BHATT MD, Ot I10 ESSENTIAL (PRIMARY) HYPERTENSION 10/24/2018 NOVA MD, DAPHNE A Ot I25.10 ATHSCL HEART DISEASE OF [place] CORONARY 10/26/2018 NOVA ORDONEZ, DAPHNE Pollock Ot H91.10 PRESBYCUSIS, UNSPECIFIED EAR 10/26/2018 NOVA ORDONEZ, DAPHNE A Ot I10 ESSENTIAL (PRIMARY) HYPERTENSION 10/26/2018 NOVA ORDONEZ, DAPHNE A Ot I25.10 ATHSCL HEART DISEASE OF [place] CORONARY 11/10/2018 NOVA ORDONEZ, DAPHNE Pollock Ot H91.10 PRESBYCUSIS, UNSPECIFIED EAR 11/10/2018 NOVA ORDONEZ, DAPHNE A Ot I10 ESSENTIAL (PRIMARY) HYPERTENSION 11/10/2018 NOVA ORDONEZ, DAPHNE A Ot I25.10 ATHSCL HEART DISEASE OF [place] CORONARY 11/15/2018 NOVA ORDONEZ, DAPHNE Pollock Ot H91.10 PRESBYCUSIS, UNSPECIFIED EAR 11/15/2018 NOVA ORDONEZ, DAPHNE A Ot I10 ESSENTIAL (PRIMARY) HYPERTENSION 11/15/2018 NOVA ORDONEZ, DAPHNE A Ot I25.10 ATHSCL HEART DISEASE OF [place] CORONARY 11/28/2018 KOURTNEY NANCE SPRING FORMER HAND Ot I25.10 ATHSCL HEART DISEASE OF [place] CORONARY 11/28/2018 KOURTNEY NANCE SPRING FORMER HAND Ot R06.02 SHORTNESS OF BREATH 11/28/2018 KOURTNEY NANCE SPRING FORMER HAND Ot R42 DIZZINESS AND GIDDINESS 12/19/2018 KOURTNEY NANCE SPRING FORMER HAND Ot I25.10 ATHSCL HEART DISEASE OF [place] CORONARY 12/19/2018 KOURTNEY NANCE SPRING FORMER HAND Ot R06.02 SHORTNESS OF BREATH 12/19/2018 KOURTNEY NANCE SPRING FORMER HAND Ot R42 DIZZINESS AND GIDDINESS Procedures Code Description [place] [id number] Office or other outpatient visit for the evaluation and management of an established patient, which Shun White 08/19/2016 [id number] Office or other outpatient visit for the evaluation and management of an established patient, which Shun White 09/20/2016 [id number] ULTRASOUND RETROPERITONEAL LIMITED VALENTNIA KEYSASH 02/23/2017 [id number] INSPECTION OF UPPER INTESTINAL TRACT, Memo Arevalo MD [id number] INSPECTION OF LOWER INTESTINAL TRACT, Memo Arevalo MD [id number] ASSISTANCE WITH RESPIRATORY VENTILATION, 24-96 HRS Kirit Shahid MD 04/30/2018 [id number] Office or other outpatient visit for the evaluation and management of an established patient, which LORENA MATA I 08/01/2018 [id number] Office or other outpatient visit for the evaluation and management of an established patient, which LORENA MATA I 08/24/2018 <section xmlns="urn:hl7-org:v3" xmlns:xsi="http:// www.[employer].org/2001/XMLSchema-instance"> <templateId root= "[email or web address]" /> <templateId root= "[email or web address]" /> <code codeSystemName="LOINC" codeSystem= "[id number]" code="34264-8" displayName="Results" /> <title>Results< /title> <text> <table> <thead> [...] DIOXIDE</td> <td>23 mmol/L</td> <td>21-32</td> </tr> <tr> <th colspan="10">CBC - 11/19/15 06:59</th> </tr> <tr> <td>MEAN [...] <td>CARBON DIOXIDE</td> <td>25 mmol/L</td> <td>21-32</td> </tr> <tr> < colspan="10">Creatinine, Serum - 06/03/16 03:45</th> </tr> <tr> [...] </td> <td>25-80</td> </tr> <tr> <th colspan="10 ">[facility] [place] HI/CR ratio - 06/03/16 03:45</th> </tr> <tr> < [...] &# 37;</td> <td>241-827</td> </tr> <tr> <th colspan ="10">[id number] - 03/22/17 08:05</th> </tr> <tr> <td>Serum or plasma urea nitrogen measurement (mass/volume)</td> <td>18 mg/dL</td > <td>7-18</td> </tr> <tr> <td>Serum or plasma creatinine measurement (mass/volume)</td> <td>1.21 mg/dL</td> <td>0.60-1.30</td> </tr> <tr> <td>Serum or plasma urea nitrogen/creatinine mass ratio</td> <td>15 </td> <td>NRG</td> </tr> <tr> <td>Serum or plasma creatinine measurement with calculation of estimated glomerular filtration rate</td> <td>58 </ td> <td>NRG</td> </tr> <tr> < colspan="10"> [id number] - 11/16/17 10:09</th> </tr> <tr> <td>Serum or [...] PROTHROMBIN TIME</td> <td>11.6 sec</td> <td>10.0-12.8</td> </tr> <tr> <th colspan="10">METABOLIC PANEL, BASIC - 10:50</th> </tr> <tr> [...] DIOXIDE</td> <td>26 mmol/L</td> <td>21-32</td> < /tr> <tr> <th colspan="10">TYPE/SCREEN - 04/30/18 19:50</th> </tr> <tr> <td>ABO/RH</td> [...] GRANULOCYTE #</td> <td>0.07 k/cumm</td> <td>0.00-0.09</td> </tr> <tr> <th colspan="10"> GLUCOSE (POC) - 05/01/18 16:33</th> </tr> <tr> <td> GLUCOSE (POC)</td> <td>92 mg/dL</td> <td>70-99</td> </ tr> <tr> <th colspan="10">HEMOGLOBIN - 05/01/18 19:53</th> </tr> <tr> <td>MEAN CELL VOLUME</td> <td>92.0 fl</td > <td>80.0-100.0</td> </tr> <tr> <td>HEMOGLOBIN< /td> <td>9.0 gm/dL</td> <td>14.0-18.0</td> </tr> <tr> <th colspan="10">GLUCOSE (POC) - 05/01/18 21:22</th> </tr > <tr> <td>GLUCOSE (POC)</td> <td>119 mg/dL</td> <td>70-99</td> </tr> <tr> <th colspan="10">CBC W/ DIFF - 05/02/18 03:17</th> </tr> [...] <td>0.00-0.09</td> </tr> <tr> < th colspan="10">[facility] - 05/02/18 03:17</th> </tr> <tr> <td>POTASSIUM</td> [...] COUNT</td> <td>155 k/cumm</td> <td>150 -400</td> </tr> <tr> < colspan="10">CBC W/DIFF - 04:08</th> </tr> <tr> <td>BASOPHIL [...] <td>HEMATOCRIT</ td> <td>25.1 %</td> <td>40.0-54.0</td> </tr> <tr> <th colspan="10">RENAL FUNCTION PANEL - 05/03/18 14:30</th> </tr> [...] <td>PHOSPHORUS</td> <td>3.1 mg/dL</td> <td>2.5-4.9</td> </tr> <tr> < colspan="10">MAGNESIUM - 05/03/18 14:30</th> </tr> <tr> <td>MAGNESIUM</td> [...] <td>MAGNESIUM</td> <td>1.7 mg /dL</td> <td>1.8-2.4</td> </tr> <tr> < colspan ="10">CBC W/DIFF - 05/05/18 06:00</th> </tr> [...] #</td > <td>0.06 k/cumm</td> <td>0.00-0.09</td> </tr> <tr> <th colspan="10">METABOLIC PANEL, BASIC - 05/05/18 06:00</th> </tr> [...] DIOXIDE</td> <td>23 mmol/L</td> <td>21-32</td > </tr> <tr> <th colspan="10">MAGNESIUM - 05/05/18 06:00< /th> </tr> <tr> [...] (count/volume)</td> <td>0.0 10*3/uL</td > <td>0.0-0.1</td> </tr> <tr> < colspan="10"> Comprehensive metabolic panel - 11/27/18 14:23</th> [...] miu/l (units/volume)</td> <td> 0.98 u[iU]/mL</td> <td>0.35-4.94</td> </tr> <tr> <th colspan="10">Complete blood count (CBC) with automated white blood cell ( WBC) differential - 12/19/18 15:26</th> </tr> <tr> <td> Blood leukocytes automated count (number/volume)</td> <td>6.2 10*3/uL</ td> <td>4.3-11.0</td> </tr> <tr> <td>Blood erythrocytes automated count (number/volume)</td> <td>4.33 10*6/uL</td > <td>4.35-5.85</td> </tr> <tr> <td>Venous blood hemoglobin measurement (mass/volume)</td> <td>13.4 g/dL</td> <td>13.3-17.7</td> </tr> <tr> <td>Blood hematocrit (volume fraction)</td> <td>39 %</td> <td>40-54</td> </tr> <tr> <td>Automated erythrocyte mean corpuscular volume</ td> <td>89 [foz_us]</td> <td>80-99</td> </tr> < tr> <td>Automated erythrocyte mean corpuscular hemoglobin (mass per erythrocyte)</td> <td>31 pg</td> <td>25-34</td> </tr> <tr> <td>Automated erythrocyte mean corpuscular hemoglobin concentration measurement (mass/volume)</td> <td>35 g/dL</td> <td>32-36</td> </tr> <tr> <td>Automated erythrocyte distribution width ratio</td> <td>13.9 %</td> <td>10.0- 14.5</td> </tr> <tr> <td>Automated blood platelet count ( count/volume)</td> <td>234 10*3/uL</td> <td>130-400</td> </tr> <tr> <td>Automated blood platelet mean volume measurement</td> <td>10.5 [foz_us]</td> <td>7.4-10.4</td> </tr> <tr> <td>Automated blood neutrophils/100 leukocytes</ td> <td>53 %</td> <td>42-75</td> </tr> <tr> <td>Automated blood lymphocytes/100 leukocytes</td> <td>35 &# 37;</td> <td>12-44</td> </tr> <tr> <td>Blood monocytes/100 leukocytes</td> <td>8 %</td> <td>0-12</td> </tr> <tr> <td>Automated blood eosinophils/100 leukocytes </td> <td>4 %</td> <td>0-10</td> </tr> <tr> <td>Automated blood basophils/100 leukocytes</td> <td>0 % </td> <td>0-10</td> </tr> <tr> <td>Blood neutrophils automated count (number/volume)</td> <td>3.3 10*3</td> <td>1.8-7.8</td> </tr> <tr> <td>Blood lymphocytes automated count (number/volume)</td> <td>2.2 10*3</td> <td>1.0 -4.0</td> </tr> <tr> <td>Blood monocytes automated count (number/volume)</td> <td>0.5 10*3</td> <td>0.0-1.0</td> </tr> <tr> <td>Automated eosinophil count</td> <td> 0.3 10*3/uL</td> <td>0.0-0.3</td> </tr> <tr> <td >Automated blood basophil count (count/volume)</td> <td>0.0 10*3/uL</td > <td>0.0-0.1</td> </tr> <tr> <th colspan="10"> Comprehensive metabolic panel - 12/19/18 15:26</th> </tr> <tr> <td>Serum or plasma sodium measurement (moles/volume)</td> <td> 140 mmol/L</td> <td>135-145</td> </tr> <tr> <td> Serum or plasma potassium measurement (moles/volume)</td> <td>4.0 mmol/ L</td> <td>3.6-5.0</td> </tr> <tr> <td>Serum or plasma chloride measurement (moles/volume)</td> <td>106 mmol/L</td> <td>98-107</td> </tr> <tr> <td>Carbon dioxide</td > <td>22 mmol/L</td> <td>21-32</td> </tr> <tr> <td>Serum or plasma anion gap determination (moles/volume)</td> <td>12 mmol/L</td> <td>5-14</td> </tr> <tr> < td>Serum or plasma urea nitrogen measurement (mass/volume)</td> <td>14 mg/dL</td> <td>7-18</td> </tr> <tr> <td>Serum or plasma creatinine measurement (mass/volume)</td> <td>1.03 mg/dL</td > <td>0.60-1.30</td> </tr> <tr> <td>Serum or plasma urea nitrogen/creatinine mass ratio</td> <td>14 </td> < td>NRG</td> </tr> <tr> <td>Serum or plasma creatinine measurement with calculation of estimated glomerular filtration rate</td> <td>> </td> <td>NRG</td> </tr> <tr> <td> Serum or plasma glucose measurement (mass/volume)</td> <td>85 mg/dL</td > <td>70-105</td> </tr> <tr> <td>Serum or plasma calcium measurement (mass/volume)</td> <td>9.2 mg/dL</td> <td>8.5-10.1</td> </tr> <tr> <td>Serum or plasma total bilirubin measurement (mass/volume)</td> <td>1.5 mg/dL</td> <td>0.1-1.0</td> </tr> <tr> <td>Serum or plasma alkaline phosphatase measurement (enzymatic activity/volume)</td> <td> 85 U/L</td> <td>40-136</td> </tr> <tr> <td> Serum or plasma aspartate aminotransferase measurement (enzymatic activity/ volume)</td> <td>28 U/L</td> <td>5-34</td> </tr> <tr> <td>Serum or plasma alanine aminotransferase measurement ( enzymatic activity/volume)</td> <td>25 U/L</td> <td>0-55</td> </tr> <tr> <td>Serum or plasma protein measurement (mass /volume)</td> <td>6.5 g/dL</td> <td>6.4-8.2</td> </tr> <tr> <td>Serum or plasma albumin measurement (mass/volume)</td > <td>3.9 g/dL</td> <td>3.2-4.5</td> </tr> <tr> <td>CALCIUM CORRECTED</td> <td>9.3 mg/dL</td> <td> 8.5-10.1</td> </tr> <tr> <th colspan="10">Serum or plasma C reactive protein measurement (mass/volume) - 12/19/18 15:26</th> </tr> <tr> <td>Serum or plasma C reactive protein measurement (mass/volume)</td> <td>0.25 mg/dL</td> <td>0.00-0.50</td> </tr> </tbody> </table> </text> <entry> <organizer moodCode= "EVN" classCode="BATTERY"> <templateId root="[id number] " /> <id nullFlavor="NA" /> <code codeSystem="local" code="CBCD" displayName="CBC W/DIFF" /> <statusCode code="completed" /> <component > <observation moodCode="EVN" classCode="OBS"> <templateId root= "[id number]" /> <id nullFlavor="NA" /> < code codeSystem="local" code="EO#" displayName="EOSINOPHIL #" /> < statusCode code="completed" /> <effectiveTime value="[id number]" /> <value unit="k/cumm" xsi:type="PQ" value="0.2" /> < referenceRange> <observationRange> <text>0.1-0.5</text> </observationRange> </referenceRange> </observation > </component> <component> <observation moodCode="EVN" classCode="OBS"> <templateId root="[id number]" /> <id nullFlavor="NA" /> <code codeSystem="local" code="EO% " displayName="EOSINOPHIL %" /> <statusCode code="completed" /> <effectiveTime value="" /> <value unit="%" xsi: type="PQ" value="3" /> <referenceRange> <observationRange> <text>2-4</text> </observationRange> </ referenceRange> </observation> </component> <component> <observation moodCode="EVN" classCode="OBS"> <templateId root= "[id number]" /> <id nullFlavor="NA" /> < code codeSystem="local" code="GR#" displayName="GRANULOCYTE #" /> < statusCode code="completed" /> <effectiveTime value="" /> <value unit="k/cumm" xsi:type="PQ" value="3.4" /> < referenceRange> <observationRange> <text>2.0-9.0</text> </observationRange> </referenceRange> </observation > </component> <component> <observation moodCode="EVN" classCode="OBS"> <templateId root="[id number]" /> <id nullFlavor="NA" /> <code codeSystem="local" code="GR% " displayName="GRANULOCYTE %" /> <statusCode code="completed" /> <effectiveTime value="" /> <value unit="%" xsi: type="PQ" value="57" /> <referenceRange> <observationRange> <text>50-75</text> </observationRange> </ referenceRange> </observation> </component> <component> <observation moodCode="EVN" classCode="OBS"> <templateId root= "[id number]" /> <id nullFlavor="NA" /> < code codeSystem="local" code="LY#" displayName="LYMPHOCYTE #" /> < statusCode code="completed" /> <effectiveTime value="" /> <value unit="k/cumm" xsi:type="PQ" value="1.9" /> < referenceRange> <observationRange> <text>1.0-4.0</text> </observationRange> </referenceRange> </observation > </component> <component> <observation moodCode="EVN" classCode="OBS"> <templateId root="2.16.840.1.750790.08.05.22.4.2" /> <id nullFlavor="NA" /> <code codeSystem="local" code="LY% " displayName="LYMPHOCYTE %" /> <statusCode code="completed" /> <effectiveTime value="" /> <value unit="%" xsi: type="PQ" value="32" /> <interpretationCode codeSystem="local" code="* " /> <referenceRange> <observationRange> <text> 20-30</text> </observationRange> </referenceRange> </ observation> </component> <component> <observation moodCode= "EVN" classCode="OBS"> <templateId root="216.840.1.902425.08.05.22.4.2 " /> <id nullFlavor="NA" /> <code codeSystem="local" code="MCH " displayName="MEAN CELL HGB" /> <statusCode code="completed" /> <effectiveTime value="" /> <value unit="pg" xsi:type= "PQ" value="29.5" /> <referenceRange> <observationRange> <text>27.0-33.0</text> </observationRange> </ referenceRange> </observation> </component> <component> <observation moodCode="EVN" classCode="OBS"> <templateId root= "2.16.840.1.839825.08.05.22.4.2" /> <id nullFlavor="NA" /> < code codeSystem="local" code="MCHC" displayName="MEAN CELL HGB CONCENTRATION" / > <statusCode code="completed" /> <effectiveTime value= "" /> <value unit="g/dL" xsi:type="PQ" value="34.4" /> <referenceRange> <observationRange> <text>32.0- 37.0</text> </observationRange> </referenceRange> </ observation> </component> <component> <observation moodCode= "EVN" classCode="OBS"> <templateId root="2.16.840.1.612326.08.05.22.4.2 " /> <id nullFlavor="NA" /> <code codeSystem="local" code="MCV " displayName="MEAN CELL VOLUME" /> <statusCode code="completed" /> <effectiveTime value="" /> <value unit="fl" xsi:type ="PQ" value="85.6" /> <referenceRange> <observationRange> <text>80.0-100.0</text> </observationRange> </ referenceRange> </observation> </component> <component> <observation moodCode="EVN" classCode="OBS"> <templateId root= "16.840.1.051593.10..22.4.2" /> <id nullFlavor="NA" /> < code codeSystem="local" code="MO#" displayName="MONOCYTE #" /> < statusCode code="completed" /> <effectiveTime value="" /> <value unit="k/cumm" xsi:type="PQ" value="0.5" /> < referenceRange> <observationRange> <text>0.1-1.0</text> </observationRange> </referenceRange> </observation > </component> <component> <observation moodCode="EVN" classCode="OBS"> <templateId root="16.840.1.741345.10..4.2" /> <id nullFlavor="NA" /> <code codeSystem="local" code="MO% " displayName="MONOCYTE %" /> <statusCode code="completed" /> <effectiveTime value="" /> <value unit="%" xsi: type="PQ" value="8" /> <interpretationCode codeSystem="local" code="*" /> <referenceRange> <observationRange> <text>4- 6</text> </observationRange> </referenceRange> </ observation> </component> <component> <observation moodCode= "EVN" classCode="OBS"> <templateId root="16.840.1.222164...4.2 " /> <id nullFlavor="NA" /> <code codeSystem="local" code="RBC " displayName="RED BLOOD CELL" /> <statusCode code="completed" /> <effectiveTime value="" /> <value unit="m/cumm" xsi: type="PQ" value="4.99" /> <referenceRange> <observationRange > <text>4.00-6.00</text> </observationRange> </ referenceRange> </observation> </component> <component> <observation moodCode="EVN" classCode="OBS"> <templateId root= "216.840.1.526306.10..22.4.2" /> <id nullFlavor="NA" /> < code codeSystem="local" code="RDW" displayName="RED CELL DISTRIBUTION WIDTH" /> <statusCode code="completed" /> <effectiveTime value= "[id number]" /> <value unit="%" xsi:type="PQ" value="14.4" /> <referenceRange> <observationRange> <text>11.0- 15.6</text> </observationRange> </referenceRange> </ observation> </component> <component> <observation moodCode= "EVN" classCode="OBS"> <templateId root="16.840.1.057505.10...4.2 " /> <id nullFlavor="NA" /> <code codeSystem="local" code="WBC " displayName="WHITE BLOOD CELL" /> <statusCode code="completed" /> <effectiveTime value="[id number]" /> <value unit="k/cumm" xsi: type="PQ" value="6.0" /> <referenceRange> <observationRange > <text>5.0-10.0</text> </observationRange> </ referenceRange> </observation> </component> <component> <observation moodCode="EVN" classCode="OBS"> <templateId root= "216.840.1.860891.10..22.4.2" /> <id nullFlavor="NA" /> < code codeSystem="local" code="HGBT" displayName="HEMOGLOBIN" /> < statusCode code="completed" /> <effectiveTime value="" /> <value unit="gm/dL" xsi:type="PQ" value="14.7" /> < referenceRange> <observationRange> <text>14.0-18.0</text > </observationRange> </referenceRange> </observation > </component> <component> <observation moodCode="EVN" classCode="OBS"> <templateId root="2.16.840.1.964164.10.20.22.4.2" /> <id nullFlavor="NA" /> <code codeSystem="local" code="HCTT" displayName="HEMATOCRIT" /> <statusCode code="completed" /> < effectiveTime value="" /> <value unit="%" xsi:type="PQ " value="42.7" /> <referenceRange> <observationRange> <text>40.0-54.0</text> </observationRange> </ referenceRange> </observation> </component> <component> <observation moodCode="EVN" classCode="OBS"> <templateId root= "2.16.840.1.238808.10.20.22.4.2" /> <id nullFlavor="NA" /> < code codeSystem="local" code="PLT" displayName="PLATELET COUNT" /> < statusCode code="completed" /> <effectiveTime value="" /> <value unit="k/cumm" xsi:type="PQ" value="217" /> < referenceRange> <observationRange> <text>150-450</text> </observationRange> </referenceRange> </observation > </component> </organizer> </entry> <entry> <organizer moodCode= "EVN" classCode="BATTERY"> <templateId root="16.840.1.448981.10..22.4.1 " /> <id nullFlavor="NA" /> <code codeSystem="local" code="PLAVIX" displayName="PLT FUNCTION, P2Y12 (PLAVIX)" /> <statusCode code="completed" /> <component> <observation moodCode="EVN" classCode="OBS"> <templateId root="12.02.840.1.794567.10..4.2" /> <id nullFlavor= "NA" /> <code codeSystem="local" code="PLAVPLT" displayName="PLATELET COUNT" /> <statusCode code="completed" /> <effectiveTime value ="" /> <value unit="k/cumm" xsi:type="PQ" value="217" /> <referenceRange> <observationRange> <text>150- 450</text> </observationRange> </referenceRange> </ observation> </component> <component> <observation moodCode= "EVN" classCode="OBS"> <templateId root="12.02.840.1.590070.10..4.2 " /> <id nullFlavor="NA" /> <code codeSystem="local" code= "PLTFUN" displayName="PLT FUNCTION P2Y12" /> <statusCode code= "completed" /> <effectiveTime value="" /> <value unit="PRU" xsi:type="PQ" value="172" /> <interpretationCode codeSystem= "local" code="*" /> <referenceRange> <observationRange> <text>194-418</text> </observationRange> </ referenceRange> </observation> </component> </organizer> </entry > <entry> <organizer moodCode="EVN" classCode="BATTERY"> <templateId root="840.1.830129.10..22.4.1" /> <id nullFlavor="NA" /> <code codeSystem="local" code="METAB" displayName="METABOLIC PANEL, BASIC" /> < statusCode code="completed" /> <component> <observation moodCode= "EVN" classCode="OBS"> <templateId root="12.02.840.1.583176.08.05.22.4.2 " /> <id nullFlavor="NA" /> <code codeSystem="local" code="K" displayName="POTASSIUM" /> <statusCode code="completed" /> < effectiveTime value="[id number]" /> <value unit="mmol/L" xsi:type="PQ " value="3.9" /> <referenceRange> <observationRange> <text>3.5-5.3</text> </observationRange> </ referenceRange> </observation> </component> <component> <observation moodCode="EVN" classCode="OBS"> <templateId root= "840.1.485818.08.05.22.4.2" /> <id nullFlavor="NA" /> < code codeSystem="local" code="eGFR" displayName="EST GFR (MDRD)" /> < statusCode code="completed" /> <effectiveTime value="" /> <value unit="mL/min" xsi:type="PQ" value="59" /> < interpretationCode codeSystem="local" code="*" /> <referenceRange> <observationRange> <text>> 59</text> </ observationRange> </referenceRange> </observation> </ component> <component> <observation moodCode="EVN" classCode="OBS"> <templateId root="12.02.840.1.005056.08.05.22.4.2" /> <id nullFlavor="NA" /> <code codeSystem="local" code="GAP" displayName= "ANION GAP" /> <statusCode code="completed" /> <effectiveTime value="" /> <value unit="mmol/L" xsi:type="PQ" value="13" / > <referenceRange> <observationRange> <text>5- 15</text> </observationRange> </referenceRange> </ observation> </component> <component> <observation moodCode= "EVN" classCode="OBS"> <templateId root="216.840.1.567068.10..22.4.2 " /> <id nullFlavor="NA" /> <code codeSystem="local" code="GLU " displayName="GLUCOSE" /> <statusCode code="completed" /> < effectiveTime value="" /> <value unit="mg/dL" xsi:type="PQ " value="92" /> <referenceRange> <observationRange> <text>70-99</text> </observationRange> </ referenceRange> </observation> </component> <component> <observation moodCode="EVN" classCode="OBS"> <templateId root= "216.840.1.040756.10..22.4.2" /> <id nullFlavor="NA" /> < code codeSystem="local" code="CA" displayName="CALCIUM" /> <statusCode code="completed" /> <effectiveTime value="" /> < value unit="mg/dL" xsi:type="PQ" value="9.0" /> <referenceRange> <observationRange> <text>8.5-10.1</text> </ observationRange> </referenceRange> </observation> </ component> <component> <observation moodCode="EVN" classCode="OBS"> <templateId root="2.16.840.1.055649.10..22.4.2" /> <id nullFlavor="NA" /> <code codeSystem="local" code="BUN" displayName= "BLOOD UREA NITROGEN" /> <statusCode code="completed" /> < effectiveTime value="" /> <value unit="mg/dL" xsi:type="PQ " value="15" /> <referenceRange> <observationRange> <text>7-20</text> </observationRange> </referenceRange > </observation> </component> <component> <observation moodCode="EVN" classCode="OBS"> <templateId root= "2.16.840.1.512751.10..22.4.2" /> <id nullFlavor="NA" /> < code codeSystem="local" code="CREAT" displayName="CREATININE" /> < statusCode code="completed" /> <effectiveTime value="" /> <value unit="mg/dL" xsi:type="PQ" value="1.2" /> < referenceRange> <observationRange> <text>0.7-1.3</text> </observationRange> </referenceRange> </observation > </component> <component> <observation moodCode="EVN" classCode="OBS"> <templateId root="216.840.1.114335..22.4.2" /> <id nullFlavor="NA" /> <code codeSystem="local" code="NA" displayName="SODIUM" /> <statusCode code="completed" /> < effectiveTime value="" /> <value unit="mmol/L" xsi:type="PQ " value="140" /> <referenceRange> <observationRange> <text>135-148</text> </observationRange> </ referenceRange> </observation> </component> <component> <observation moodCode="EVN" classCode="OBS"> <templateId root= "12.02.840.1.654520...4.2" /> <id nullFlavor="NA" /> < code codeSystem="local" code="CL" displayName="CHLORIDE" /> < statusCode code="completed" /> <effectiveTime value="974339971677" /> <value unit="mmol/L" xsi:type="PQ" value="105" /> < referenceRange> <observationRange> <text>98-110</text> </observationRange> </referenceRange> </observation> </component> <component> <observation moodCode="EVN" classCode ="OBS"> <templateId root="12.02.840.1.865437.08.05.22.4.2" /> < id nullFlavor="NA" /> <code codeSystem="local" code="CO2" displayName= "CARBON DIOXIDE" /> <statusCode code="completed" /> < effectiveTime value="[id number]" /> <value unit="mmol/L" xsi:type="PQ " value="22" /> <referenceRange> <observationRange> <text>21-32</text> </observationRange> </ referenceRange> </observation> </component> </organizer> </entry > <entry> <organizer moodCode="EVN" classCode="BATTERY"> <templateId root="12.02.840.1.635580.10...4.1" /> <id nullFlavor="NA" /> <code codeSystem="local" code="HGB" displayName="HEMOGLOBIN" /> <statusCode code= "completed" /> <component> <observation moodCode="EVN" classCode= "OBS"> <templateId root="12.02.840.1.258008.22.4.2" /> < id nullFlavor="NA" /> <code codeSystem="local" code="MCV" displayName= "MEAN CELL VOLUME" /> <statusCode code="completed" /> < effectiveTime value="" /> <value unit="fl" xsi:type="PQ" value="86.8" /> <referenceRange> <observationRange> <text>80.0-100.0</text> </observationRange> </ referenceRange> </observation> </component> <component> <observation moodCode="EVN" classCode="OBS"> <templateId root= "840.1.778858.08.05.22.4.2" /> <id nullFlavor="NA" /> < code codeSystem="local" code="HGBT" displayName="HEMOGLOBIN" /> < statusCode code="completed" /> <effectiveTime value="" /> <value unit="gm/dL" xsi:type="PQ" value="12.4" /> < interpretationCode codeSystem="local" code="*" /> <referenceRange> <observationRange> <text>14.0-18.0</text> </ observationRange> </referenceRange> </observation> </ component> </organizer> </entry> <entry> <organizer moodCode="EVN" classCode="BATTERY"> <templateId root="12.02.840.1.468372.22.4.1" /> <id nullFlavor="NA" /> <code codeSystem="local" code="HCT" displayName ="HEMATOCRIT" /> <statusCode code="completed" /> <component> < observation moodCode="EVN" classCode="OBS"> <templateId root= "12.02.840.1.695661.22.4.2" /> <id nullFlavor="NA" /> < code codeSystem="local" code="MCV" displayName="MEAN CELL VOLUME" /> < statusCode code="completed" /> <effectiveTime value="" /> <value unit="fl" xsi:type="PQ" value="87.0" /> <referenceRange > <observationRange> <text>80.0-100.0</text> </observationRange> </referenceRange> </observation> </ component> <component> <observation moodCode="EVN" classCode="OBS"> <templateId root="840.1.787359.22.4.2" /> <id nullFlavor="NA" /> <code codeSystem="local" code="HCTT" displayName= "HEMATOCRIT" /> <statusCode code="completed" /> < effectiveTime value="" /> <value unit="%" xsi:type="PQ " value="36.2" /> <interpretationCode codeSystem="local" code="*" /> <referenceRange> <observationRange> <text>40.0- 54.0</text> </observationRange> </referenceRange> </ observation> </component> </organizer> </entry> <entry> <organizer moodCode="EVN" classCode="BATTERY"> <templateId root= "840.1.596931.22.4.1" /> <id nullFlavor="NA" /> <code codeSystem="local" code="UANRC" displayName="URINALYSIS, NO REFLEX CULTURE" /> <statusCode code="completed" /> <component> <observation moodCode="EVN" classCode="OBS"> <templateId root= "840.1.815481.102022.4.2" /> <id nullFlavor="NA" /> < code codeSystem="local" code="LEUESU" displayName="UA LEUKOCYTE ESTERASE DIPSTICK" /> <statusCode code="completed" /> <effectiveTime value="" /> <value unit="" xsi:type="PQ" value="TRACE" /> <referenceRange> <observationRange> <text> NEGATIVE</text> </observationRange> </referenceRange> </observation> </component> <component> <observation moodCode ="EVN" classCode="OBS"> <templateId root= "16.840.1.879955.10..22.4.2" /> <id nullFlavor="NA" /> < code codeSystem="local" code="NITRIU" displayName="UA NITRITE DIPSTICK" /> <statusCode code="completed" /> <effectiveTime value=" " /> <value unit="" xsi:type="PQ" value="NEGATIVE" /> < referenceRange> <observationRange> <text>NEGATIVE</text > </observationRange> </referenceRange> </observation > </component> <component> <observation moodCode="EVN" classCode="OBS"> <templateId root="16.840.1.098866.10..22.4.2" /> <id nullFlavor="NA" /> <code codeSystem="local" code="PROTEIU " displayName="UA PROTEIN DIPSTICK" /> <statusCode code="completed" /> <effectiveTime value="" /> <value unit="" xsi: type="PQ" value="TRACE" /> <referenceRange> < observationRange> <text>NEGATIVE</text> </ observationRange> </referenceRange> </observation> </ component> <component> <observation moodCode="EVN" classCode="OBS"> <templateId root="12.02.840.1.986917.08.05.22.4.2" /> <id nullFlavor="NA" /> <code codeSystem="local" code="DGLUU" displayName= "UA GLUCOSE DIPSTICK" /> <statusCode code="completed" /> < effectiveTime value="" /> <value unit="" xsi:type="PQ" value="NEGATIVE" /> <referenceRange> <observationRange> <text>NEGATIVE</text> </observationRange> </ referenceRange> </observation> </component> <component> <observation moodCode="EVN" classCode="OBS"> <templateId root= "216.840.1.073194.08.05.224.2" /> <id nullFlavor="NA" /> < code codeSystem="local" code="KETONU" displayName="UA KETONE DIPSTICK" /> <statusCode code="completed" /> <effectiveTime value=" " /> <value unit="" xsi:type="PQ" value="1+" /> < interpretationCode codeSystem="local" code="*" /> <referenceRange> <observationRange> <text>NEGATIVE</text> </ observationRange> </referenceRange> </observation> </ component> <component> <observation moodCode="EVN" classCode="OBS"> <templateId root="16.840.1.134924.08.05.224.2" /> <id nullFlavor="NA" /> <code codeSystem="local" code="UROBILU" displayName= "UA UROBILINOGEN DIPSTICK" /> <statusCode code="completed" /> <effectiveTime value="" /> <value unit="" xsi:type="PQ" value="NORMAL" /> <referenceRange> <observationRange> <text>NORMAL</text> </observationRange> </ referenceRange> </observation> </component> <component> <observation moodCode="EVN" classCode="OBS"> <templateId root= "16.840.1.596960.10..4.2" /> <id nullFlavor="NA" /> < code codeSystem="local" code="BILU" displayName="UA BILIRUBIN DIPSTICK" /> <statusCode code="completed" /> <effectiveTime value=" " /> <value unit="" xsi:type="PQ" value="NEGATIVE" /> < referenceRange> <observationRange> <text>NEGATIVE</text > </observationRange> </referenceRange> </observation > </component> <component> <observation moodCode="EVN" classCode="OBS"> <templateId root="216.840.1.238863.08.05.22.4.2" /> <id nullFlavor="NA" /> <code codeSystem="local" code="WILD" displayName="UA BLOOD DIPSTICK" /> <statusCode code="completed" /> <effectiveTime value="" /> <value unit="" xsi:type= "PQ" value="4+" /> <interpretationCode codeSystem="local" code="*" /> <referenceRange> <observationRange> <text> NEGATIVE</text> </observationRange> </referenceRange> </observation> </component> <component> <observation moodCode ="EVN" classCode="OBS"> <templateId root= "16.840.1.433081.08.05.22.4.2" /> <id nullFlavor="NA" /> < code codeSystem="local" code="SPGRU" displayName="UA SPECIFIC GRAVITY" /> <statusCode code="completed" /> <effectiveTime value=" " /> <value unit="" xsi:type="PQ" value="1.015" /> < referenceRange> <observationRange> <text>1.015-1.025</ text> </observationRange> </referenceRange> </ observation> </component> <component> <observation moodCode= "EVN" classCode="OBS"> <templateId root="16.840.1.867710.10.22.4.2 " /> <id nullFlavor="NA" /> <code codeSystem="local" code="IRVIN " displayName="UR PH" /> <statusCode code="completed" /> < effectiveTime value="" /> <value unit="" xsi:type="PQ" value="5.0" /> <referenceRange> <observationRange> <text>5.0-7.0</text> </observationRange> </ referenceRange> </observation> </component> </organizer> </entry > <entry> <organizer moodCode="EVN" classCode="BATTERY"> <templateId root="12.02.840.1.132561.08.05.22.4.1" /> <id nullFlavor="NA" /> <code codeSystem="local" code="UAMICRO" displayName="UA MICROSCOPIC" /> < statusCode code="completed" /> <component> <observation moodCode= "EVN" classCode="OBS"> <templateId root="12.02.840.1.757406.10.20.22.4.2 " /> <id nullFlavor="NA" /> <code codeSystem="local" code= "BACU" displayName="UA BACTERIA" /> <statusCode code="completed" /> <effectiveTime value="" /> <value unit="" xsi:type= "PQ" value="1+" /> <interpretationCode codeSystem="local" code="*" /> <referenceRange> <observationRange> <text> NEGATIVE</text> </observationRange> </referenceRange> </observation> </component> <component> <observation moodCode ="EVN" classCode="OBS"> <templateId root= "16.840.1.641984.10.4.2" /> <id nullFlavor="NA" /> < code codeSystem="local" code="MUCUSU" displayName="UA MUCUS" /> < statusCode code="completed" /> <effectiveTime value="" /> <value unit="" xsi:type="PQ" value="1+" /> <referenceRange> <observationRange> <text>NEG TO 1+</text> </ observationRange> </referenceRange> </observation> </ component> <component> <observation moodCode="EVN" classCode="OBS"> <templateId root="12.02.840.1.582987.08.05.22.4.2" /> <id nullFlavor="NA" /> <code codeSystem="local" code="RBCU" displayName=" UA RBC" /> <statusCode code="completed" /> <effectiveTime value="" /> <value unit="rbc/hpf" xsi:type="PQ" value="50- 100" /> <interpretationCode codeSystem="local" code="*" /> < referenceRange> <observationRange> <text>0 - 3</text> </observationRange> </referenceRange> </observation> </component> <component> <observation moodCode="EVN" classCode= "OBS"> <templateId root="12.02.840.1.856906...4.2" /> < id nullFlavor="NA" /> <code codeSystem="local" code="UAVOL" displayName ="UA VOLUME FOR EXAM" /> <statusCode code="completed" /> < effectiveTime value="" /> <value unit="mL" xsi:type="PQ" value="12.0" /> <referenceRange> <observationRange> <text>(12mL STD)</text> </observationRange> </ referenceRange> </observation> </component> <component> <observation moodCode="EVN" classCode="OBS"> <templateId root= "840.1.797683.08.05.22.4.2" /> <id nullFlavor="NA" /> < code codeSystem="local" code="WBCU" displayName="UA WBC" /> < statusCode code="completed" /> <effectiveTime value="" /> <value unit="wbc/hpf" xsi:type="PQ" value="2-5" /> < referenceRange> <observationRange> <text>0 - 5</text> </observationRange> </referenceRange> </observation> </component> </organizer> </entry> <entry> <organizer moodCode="EVN " classCode="BATTERY"> <templateId root="840.1.806444.08.05.22.4.1" / > <id nullFlavor="NA" /> <code codeSystem="local" code="CBC" displayName="CBC" /> <statusCode code="completed" /> <component> <observation moodCode="EVN" classCode="OBS"> <templateId root= "840.1.245341.22.4.2" /> <id nullFlavor="NA" /> < code codeSystem="local" code="MCH" displayName="MEAN CELL HGB" /> < statusCode code="completed" /> <effectiveTime value="[id number]" /> <value unit="pg" xsi:type="PQ" value="29.3" /> <referenceRange > <observationRange> <text>27.0-33.0</text> < /observationRange> </referenceRange> </observation> </ component> <component> <observation moodCode="EVN" classCode="OBS"> <templateId root="16.840.1.755190.10.20.22.4.2" /> <id nullFlavor="NA" /> <code codeSystem="local" code="MCHC" displayName= "MEAN CELL HGB CONCENTRATION" /> <statusCode code="completed" /> <effectiveTime value="" /> <value unit="g/dL" xsi:type= "PQ" value="32.9" /> <referenceRange> <observationRange> <text>32.0-37.0</text> </observationRange> </ referenceRange> </observation> </component> <component> <observation moodCode="EVN" classCode="OBS"> <templateId root= "840.1.901211.10.20.22.4.2" /> <id nullFlavor="NA" /> < code codeSystem="local" code="MCV" displayName="MEAN CELL VOLUME" /> < statusCode code="completed" /> <effectiveTime value="[id number]" /> <value unit="fl" xsi:type="PQ" value="89.2" /> <referenceRange > <observationRange> <text>80.0-100.0</text> </observationRange> </referenceRange> </observation> </ component> <component> <observation moodCode="EVN" classCode="OBS"> <templateId root="12.02.840.1.074814.10.20.22.4.2" /> <id nullFlavor="NA" /> <code codeSystem="local" code="RBC" displayName=" RED BLOOD CELL" /> <statusCode code="completed" /> < effectiveTime value="" /> <value unit="m/cumm" xsi:type="PQ " value="3.34" /> <interpretationCode codeSystem="local" code="*" /> <referenceRange> <observationRange> <text>4.00- 6.00</text> </observationRange> </referenceRange> </ observation> </component> <component> <observation moodCode= "EVN" classCode="OBS"> <templateId root="2.16.840.1.745999.10.20.22.4.2 " /> <id nullFlavor="NA" /> <code codeSystem="local" code="RDW " displayName="RED CELL DISTRIBUTION WIDTH" /> <statusCode code= "completed" /> <effectiveTime value="" /> <value unit="%" xsi:type="PQ" value="14.4" /> <referenceRange> <observationRange> <text>11.0-15.6</text> </ observationRange> </referenceRange> </observation> </ component> <component> <observation moodCode="EVN" classCode="OBS"> <templateId root="2.16.840.1.363155.10..22.4.2" /> <id nullFlavor="NA" /> <code codeSystem="local" code="WBC" displayName= "WHITE BLOOD CELL" /> <statusCode code="completed" /> < effectiveTime value="" /> <value unit="k/cumm" xsi:type="PQ " value="9.9" /> <referenceRange> <observationRange> <text>5.0-10.0</text> </observationRange> </ referenceRange> </observation> </component> <component> <observation moodCode="EVN" classCode="OBS"> <templateId root= "12.02.840.1.964219.10..22.4.2" /> <id nullFlavor="NA" /> < code codeSystem="local" code="HGBT" displayName="HEMOGLOBIN" /> < statusCode code="completed" /> <effectiveTime value="" /> <value unit="gm/dL" xsi:type="PQ" value="9.8" /> < interpretationCode codeSystem="local" code="*" /> <referenceRange> <observationRange> <text>14.0-18.0</text> </ observationRange> </referenceRange> </observation> </ component> <component> <observation moodCode="EVN" classCode="OBS"> <templateId root="12.02.840.1.475559.10.4.2" /> <id nullFlavor="NA" /> <code codeSystem="local" code="HCTT" displayName= "HEMATOCRIT" /> <statusCode code="completed" /> < effectiveTime value="" /> <value unit="%" xsi:type="PQ " value="29.8" /> <interpretationCode codeSystem="local" code="*" /> <referenceRange> <observationRange> <text>40.0- 54.0</text> </observationRange> </referenceRange> </ observation> </component> <component> <observation moodCode= "EVN" classCode="OBS"> <templateId root="12.02.840.1.008796.10.22.4.2 " /> <id nullFlavor="NA" /> <code codeSystem="local" code="PLT " displayName="PLATELET COUNT" /> <statusCode code="completed" /> <effectiveTime value="" /> <value unit="k/cumm" xsi: type="PQ" value="179" /> <referenceRange> <observationRange > <text>150-450</text> </observationRange> </ referenceRange> </observation> </component> </organizer> </entry > <entry> <organizer moodCode="EVN" classCode="BATTERY"> <templateId root="12.02.840.1.472810.10.22.4.1" /> <id nullFlavor="NA" /> <code codeSystem="local" code="METAB" displayName="METABOLIC PANEL, BASIC" /> < statusCode code="completed" /> <component> <observation moodCode= "EVN" classCode="OBS"> <templateId root="12.02.840.1.518721...4.2 " /> <id nullFlavor="NA" /> <code codeSystem="local" code="K" displayName="POTASSIUM" /> <statusCode code="completed" /> < effectiveTime value="" /> <value unit="mmol/L" xsi:type="PQ " value="4.3" /> <referenceRange> <observationRange> <text>3.5-5.3</text> </observationRange> </ referenceRange> </observation> </component> <component> <observation moodCode="EVN" classCode="OBS"> <templateId root= "840.1.628969....4.2" /> <id nullFlavor="NA" /> < code codeSystem="local" code="eGFR" displayName="EST GFR (MDRD)" /> < statusCode code="completed" /> <effectiveTime value="" /> <value unit="mL/min" xsi:type="PQ" value="59" /> < interpretationCode codeSystem="local" code="*" /> <referenceRange> <observationRange> <text>> 59</text> </ observationRange> </referenceRange> </observation> </ component> <component> <observation moodCode="EVN" classCode="OBS"> <templateId root="16.840.1.481116.10..4.2" /> <id nullFlavor="NA" /> <code codeSystem="local" code="GAP" displayName= "ANION GAP" /> <statusCode code="completed" /> <effectiveTime value="" /> <value unit="mmol/L" xsi:type="PQ" value="12" / > <referenceRange> <observationRange> <text>5- 15</text> </observationRange> </referenceRange> </ observation> </component> <component> <observation moodCode= "EVN" classCode="OBS"> <templateId root="12.02.840.1.177037.08.05.22.4.2 " /> <id nullFlavor="NA" /> <code codeSystem="local" code= "eCrCl" displayName="EST CrCl (CG)" /> <statusCode code="completed" /> <effectiveTime value="" /> <value unit="mL/min" xsi:type="PQ" value="> 60" /> <referenceRange> < observationRange> <text>> 59</text> </ observationRange> </referenceRange> </observation> </ component> <component> <observation moodCode="EVN" classCode="OBS"> <templateId root="12.02.840.1.871367.10.4.2" /> <id nullFlavor="NA" /> <code codeSystem="local" code="GLU" displayName= "GLUCOSE" /> <statusCode code="completed" /> <effectiveTime value="" /> <value unit="mg/dL" xsi:type="PQ" value="114" / > <interpretationCode codeSystem="local" code="*" /> < referenceRange> <observationRange> <text>70-99</text> </observationRange> </referenceRange> </observation> </component> <component> <observation moodCode="EVN" classCode= "OBS"> <templateId root="216.840.1.416639.10..22.4.2" /> < id nullFlavor="NA" /> <code codeSystem="local" code="CA" displayName= "CALCIUM" /> <statusCode code="completed" /> <effectiveTime value="" /> <value unit="mg/dL" xsi:type="PQ" value="8.2" / > <interpretationCode codeSystem="local" code="*" /> < referenceRange> <observationRange> <text>8.5-10.1</text > </observationRange> </referenceRange> </observation > </component> <component> <observation moodCode="EVN" classCode="OBS"> <templateId root="216.840.1.492546.10..22.4.2" /> <id nullFlavor="NA" /> <code codeSystem="local" code="BUN" displayName="BLOOD UREA NITROGEN" /> <statusCode code="completed" /> <effectiveTime value="" /> <value unit="mg/dL" xsi: type="PQ" value="17" /> <referenceRange> <observationRange> <text>7-20</text> </observationRange> </ referenceRange> </observation> </component> <component> <observation moodCode="EVN" classCode="OBS"> <templateId root= "216.840.1.831920.22.4.2" /> <id nullFlavor="NA" /> < code codeSystem="local" code="CREAT" displayName="CREATININE" /> < statusCode code="completed" /> <effectiveTime value="" /> <value unit="mg/dL" xsi:type="PQ" value="1.2" /> < referenceRange> <observationRange> <text>0.7-1.3</text> </observationRange> </referenceRange> </observation > </component> <component> <observation moodCode="EVN" classCode="OBS"> <templateId root="216.840.1.493251.08.05.22.4.2" /> <id nullFlavor="NA" /> <code codeSystem="local" code="NA" displayName="SODIUM" /> <statusCode code="completed" /> < effectiveTime value="" /> <value unit="mmol/L" xsi:type="PQ " value="141" /> <referenceRange> <observationRange> <text>135-148</text> </observationRange> </ referenceRange> </observation> </component> <component> <observation moodCode="EVN" classCode="OBS"> <templateId root= "216.840.1.100231.08.05.22.4.2" /> <id nullFlavor="NA" /> < code codeSystem="local" code="CL" displayName="CHLORIDE" /> < statusCode code="completed" /> <effectiveTime value="" /> <value unit="mmol/L" xsi:type="PQ" value="106" /> < referenceRange> <observationRange> <text>98-110</text> </observationRange> </referenceRange> </observation> </component> <component> <observation moodCode="EVN" classCode ="OBS"> <templateId root="12.02.840.1.882706.10..4.2" /> < id nullFlavor="NA" /> <code codeSystem="local" code="CO2" displayName= "CARBON DIOXIDE" /> <statusCode code="completed" /> < effectiveTime value="302140972156" /> <value unit="mmol/L" xsi:type="PQ " value="23" /> <referenceRange> <observationRange> <text>21-32</text> </observationRange> </ referenceRange> </observation> </component> </organizer> </entry > <entry> <organizer moodCode="EVN" classCode="BATTERY"> <templateId root="12.02.840.1.136251.10..4.1" /> <id nullFlavor="NA" /> <code codeSystem="local" code="CBC" displayName="CBC" /> <statusCode code= "completed" /> <component> <observation moodCode="EVN" classCode= "OBS"> <templateId root="12.02.840.1.864240.10...4.2" /> < id nullFlavor="NA" /> <code codeSystem="local" code="MCH" displayName= "MEAN CELL HGB" /> <statusCode code="completed" /> < effectiveTime value="507018382738" /> <value unit="pg" xsi:type="PQ" value="29.8" /> <referenceRange> <observationRange> <text>27.0-33.0</text> </observationRange> </ referenceRange> </observation> </component> <component> <observation moodCode="EVN" classCode="OBS"> <templateId root= "12.02.840.1.470816.08.05.22.4.2" /> <id nullFlavor="NA" /> < code codeSystem="local" code="MCHC" displayName="MEAN CELL HGB CONCENTRATION" / > <statusCode code="completed" /> <effectiveTime value= "" /> <value unit="g/dL" xsi:type="PQ" value="33.3" /> <referenceRange> <observationRange> <text>32.0- 37.0</text> </observationRange> </referenceRange> </ observation> </component> <component> <observation moodCode= "EVN" classCode="OBS"> <templateId root="2.16.840.1.313773.08.05.22.4.2 " /> <id nullFlavor="NA" /> <code codeSystem="local" code="MCV " displayName="MEAN CELL VOLUME" /> <statusCode code="completed" /> <effectiveTime value="" /> <value unit="fl" xsi:type ="PQ" value="89.3" /> <referenceRange> <observationRange> <text>80.0-100.0</text> </observationRange> </ referenceRange> </observation> </component> <component> <observation moodCode="EVN" classCode="OBS"> <templateId root= "2.16.840.1.156107...4.2" /> <id nullFlavor="NA" /> < code codeSystem="local" code="RBC" displayName="RED BLOOD CELL" /> < statusCode code="completed" /> <effectiveTime value="" /> <value unit="m/cumm" xsi:type="PQ" value="3.19" /> < interpretationCode codeSystem="local" code="*" /> <referenceRange> <observationRange> <text>4.00-6.00</text> </ observationRange> </referenceRange> </observation> </ component> <component> <observation moodCode="EVN" classCode="OBS"> <templateId root="16.840.1.884536.10.2022.4.2" /> <id nullFlavor="NA" /> <code codeSystem="local" code="RDW" displayName=" RED CELL DISTRIBUTION WIDTH" /> <statusCode code="completed" /> <effectiveTime value="605604207960" /> <value unit="%" xsi:type= "PQ" value="14.3" /> <referenceRange> <observationRange> <text>11.0-15.6</text> </observationRange> </ referenceRange> </observation> </component> <component> <observation moodCode="EVN" classCode="OBS"> <templateId root= "12.02.840.1.256278.08.05.22.4.2" /> <id nullFlavor="NA" /> < code codeSystem="local" code="WBC" displayName="WHITE BLOOD CELL" /> < statusCode code="completed" /> <effectiveTime value="088513900549" /> <value unit="k/cumm" xsi:type="PQ" value="11.3" /> < interpretationCode codeSystem="local" code="*" /> <referenceRange> <observationRange> <text>5.0-10.0</text> </ observationRange> </referenceRange> </observation> </ component> <component> <observation moodCode="EVN" classCode="OBS"> <templateId root="12.02.840.1.875760.22.4.2" /> <id nullFlavor="NA" /> <code codeSystem="local" code="HGBT" displayName= "HEMOGLOBIN" /> <statusCode code="completed" /> < effectiveTime value="572086130877" /> <value unit="gm/dL" xsi:type="PQ " value="9.5" /> <interpretationCode codeSystem="local" code="*" /> <referenceRange> <observationRange> <text>14.0- 18.0</text> </observationRange> </referenceRange> </ observation> </component> <component> <observation moodCode= "EVN" classCode="OBS"> <templateId root="2.16.840.1.802983.10.20.22.4.2 " /> <id nullFlavor="NA" /> <code codeSystem="local" code= "HCTT" displayName="HEMATOCRIT" /> <statusCode code="completed" /> <effectiveTime value="915817333010" /> <value unit="%" xsi: type="PQ" value="28.5" /> <interpretationCode codeSystem="local" code= "*" /> <referenceRange> <observationRange> < text>40.0-54.0</text> </observationRange> </referenceRange> </observation> </component> <component> <observation moodCode="EVN" classCode="OBS"> <templateId root= "2.16.840.1.462895.10.20.22.4.2" /> <id nullFlavor="NA" /> < code codeSystem="local" code="PLT" displayName="PLATELET COUNT" /> < statusCode code="completed" /> <effectiveTime value="906964360611" /> <value unit="k/cumm" xsi:type="PQ" value="176" /> < referenceRange> <observationRange> <text>150-450</text> </observationRange> </referenceRange> </observation > </component> </organizer> </entry> <entry> <organizer moodCode= "EVN" classCode="BATTERY"> <templateId root="16.840.1.295691.10..22.4.1 " /> <id nullFlavor="NA" /> <code codeSystem="local" code="ABG" displayName="ARTERIAL BLOOD GAS" /> <statusCode code="completed" /> < component> <observation moodCode="EVN" classCode="OBS"> < templateId root="12.02.840.1.757035.08.05.22.4.2" /> <id nullFlavor="NA " /> <code codeSystem="local" code="ABGCOM" displayName="COMMENT" /> <statusCode code="completed" /> <effectiveTime value= "998969534409" /> <value unit="" xsi:type="PQ" value="2L NC" /> <referenceRange> <observationRange> <text /> </observationRange> </referenceRange> </observation> </ component> <component> <observation moodCode="EVN" classCode="OBS"> <templateId root="840.1.956073.08.05.22.4.2" /> <id nullFlavor="NA" /> <code codeSystem="local" code="AMILCAR" displayName=" ABG BASE EXCESS" /> <statusCode code="completed" /> < effectiveTime value="" /> <value unit="meq/L" xsi:type="PQ " value="-2.8" /> <referenceRange> <observationRange> <text>-3.0-3.0</text> </observationRange> </ referenceRange> </observation> </component> <component> <observation moodCode="EVN" classCode="OBS"> <templateId root= "12.02.840.1.974332.08.05.22.4.2" /> <id nullFlavor="NA" /> < code codeSystem="local" code="HARLEY" displayName="ABG DEVICE" /> < statusCode code="completed" /> <effectiveTime value="" /> <value unit="" xsi:type="PQ" value="NC" /> <referenceRange> <observationRange> <text /> </observationRange > </referenceRange> </observation> </component> < component> <observation moodCode="EVN" classCode="OBS"> < templateId root="216.840.1.170163.10.20.22.4.2" /> <id nullFlavor="NA " /> <code codeSystem="local" code="FIO2A" displayName="ABG FIO2" /> <statusCode code="completed" /> <effectiveTime value= "" /> <value unit="%" xsi:type="PQ" value="0.28" /> <referenceRange> <observationRange> <text /> </observationRange> </referenceRange> </observation> </component> <component> <observation moodCode="EVN" classCode= "OBS"> <templateId root="2.16.840.1.620054.10.20.22.4.2" /> < id nullFlavor="NA" /> <code codeSystem="local" code="HCO3A" displayName ="ABG BICARBONATE" /> <statusCode code="completed" /> < effectiveTime value="" /> <value unit="meq/L" xsi:type="PQ " value="19.6" /> <interpretationCode codeSystem="local" code="*" /> <referenceRange> <observationRange> <text>23.0- 28.0</text> </observationRange> </referenceRange> </ observation> </component> <component> <observation moodCode= "EVN" classCode="OBS"> <templateId root="12.02.840.1.375291.10..4.2 " /> <id nullFlavor="NA" /> <code codeSystem="local" code= "MODEA" displayName="ABG VENT MODE" /> <statusCode code="completed" /> <effectiveTime value="" /> <value unit="" xsi: type="PQ" value="2L" /> <referenceRange> <observationRange> <text /> </observationRange> </referenceRange > </observation> </component> <component> <observation moodCode="EVN" classCode="OBS"> <templateId root= "840.1.691000.10.4.2" /> <id nullFlavor="NA" /> < code codeSystem="local" code="PCO2A" displayName="ABG PCO2" /> < statusCode code="completed" /> <effectiveTime value="" /> <value unit="mmHg" xsi:type="PQ" value="27" /> < interpretationCode codeSystem="local" code="*" /> <referenceRange> <observationRange> <text>34-45</text> </ observationRange> </referenceRange> </observation> </ component> <component> <observation moodCode="EVN" classCode="OBS"> <templateId root="12.02.840.1.015564.10.22.4.2" /> <id nullFlavor="NA" /> <code codeSystem="local" code="PHAX" displayName= "ABG PH" /> <statusCode code="completed" /> <effectiveTime value="319685818991" /> <value unit="" xsi:type="PQ" value="7.48" /> <interpretationCode codeSystem="local" code="*" /> < referenceRange> <observationRange> <text>7.35-7.45</text > </observationRange> </referenceRange> </observation > </component> <component> <observation moodCode="EVN" classCode="OBS"> <templateId root="216.840.1.037435.10.20.22.4.2" /> <id nullFlavor="NA" /> <code codeSystem="local" code="PO2A" displayName="ABG PO2" /> <statusCode code="completed" /> < effectiveTime value="247211622193" /> <value unit="mmHg" xsi:type="PQ" value="89" /> <referenceRange> <observationRange> <text>75-100</text> </observationRange> </referenceRange > </observation> </component> <component> <observation moodCode="EVN" classCode="OBS"> <templateId root= "16.840.1.577744.10..4.2" /> <id nullFlavor="NA" /> < code codeSystem="local" code="POSA" displayName="ABG PATIENT POSITION" /> <statusCode code="completed" /> <effectiveTime value="888259463907 " /> <value unit="" xsi:type="PQ" value="SF" /> < referenceRange> <observationRange> <text /> < /observationRange> </referenceRange> </observation> </ component> <component> <observation moodCode="EVN" classCode="OBS"> <templateId root="16.840.1.025054.10..22.4.2" /> <id nullFlavor="NA" /> <code codeSystem="local" code="SATA" displayName= "ABG O2 SATURATION" /> <statusCode code="completed" /> < effectiveTime value="821804709392" /> <value unit="%" xsi:type="PQ " value="97" /> <referenceRange> <observationRange> <text>93-100</text> </observationRange> </ referenceRange> </observation> </component> <component> <observation moodCode="EVN" classCode="OBS"> <templateId root= "2.16.840.1.878142.10..22.4.2" /> <id nullFlavor="NA" /> < code codeSystem="local" code="SITEA" displayName="ABG SITE" /> < statusCode code="completed" /> <effectiveTime value="418172478561" /> <value unit="" xsi:type="PQ" value="RT BRACH" /> < referenceRange> <observationRange> <text /> < /observationRange> </referenceRange> </observation> </ component> </organizer> </entry> <entry> <organizer moodCode="EVN" classCode="BATTERY"> <templateId root="2.16.840.1.405207.10..22.4.1" /> <id nullFlavor="NA" /> <code codeSystem="local" code="MRSAS" displayName="MRSA SURVEILLANCE SCREEN" /> <statusCode code="completed" /> <component> <observation moodCode="EVN" classCode="OBS"> < templateId root="216.840.1.262778.10.20.22.4.2" /> <id nullFlavor="NA " /> <code codeSystem="local" code="MB" displayName="Microbiology" /> <statusCode code="completed" /> <effectiveTime value= "267221029782" /> <value xsi:type="ST" value="<pre><b>MRSA SURVEILLANCE SCREEN</b> See BelowMRSA SURVEILLANCE SCREEN(F) Ruma Date/Time: 11/29/2015 15:53 Viktoria Date/Time: // :SOURCE: ANTERIOR NARESSPEC DESC: See BelowMRSA SURVEILLANCE SCREEN(F) Ruma Date/Time : 11/29/2015 15:53 Viktoria Date/Time: 11/30/2015 14: 15SOURCE: ANTERIOR NARESSPEC DESC: NNO [facility]ETH[facility]IST[facility] [place] [address]</pre>" /> <referenceRange> <observationRange> <text /> </observationRange> </referenceRange> </observation> </ component> </organizer> </entry> <entry> <organizer moodCode="EVN" classCode="BATTERY"> <templateId root="216.840.1.419276.10.20.22.4.1" /> <id nullFlavor="NA" /> <code codeSystem="local" code="CBC" displayName ="CBC" /> <statusCode code="completed" /> <component> < observation moodCode="EVN" classCode="OBS"> <templateId root= "216.840.1.779721.10.20.22.4.2" /> <id nullFlavor="NA" /> < code codeSystem="local" code="MCH" displayName="MEAN CELL HGB" /> < statusCode code="completed" /> <effectiveTime value="077500541276" /> <value unit="pg" xsi:type="PQ" value="28.9" /> <referenceRange > <observationRange> <text>27.0-33.0</text> < /observationRange> </referenceRange> </observation> </ component> <component> <observation moodCode="EVN" classCode="OBS"> <templateId root="216.840.1.638582.10.20.22.4.2" /> <id nullFlavor="NA" /> <code codeSystem="local" code="MCHC" displayName= "MEAN CELL HGB CONCENTRATION" /> <statusCode code="completed" /> <effectiveTime value="" /> <value unit="g/dL" xsi:type= "PQ" value="32.7" /> <referenceRange> <observationRange> <text>32.0-37.0</text> </observationRange> </ referenceRange> </observation> </component> <component> <observation moodCode="EVN" classCode="OBS"> <templateId root= "16.840.1.271762.10.20.22.4.2" /> <id nullFlavor="NA" /> < code codeSystem="local" code="MCV" displayName="MEAN CELL VOLUME" /> < statusCode code="completed" /> <effectiveTime value="" /> <value unit="fl" xsi:type="PQ" value="88.2" /> <referenceRange > <observationRange> <text>80.0-100.0</text> </observationRange> </referenceRange> </observation> </ component> <component> <observation moodCode="EVN" classCode="OBS"> <templateId root="16.840.1.606774.10.20.22.4.2" /> <id nullFlavor="NA" /> <code codeSystem="local" code="RBC" displayName=" RED BLOOD CELL" /> <statusCode code="completed" /> < effectiveTime value="" /> <value unit="m/cumm" xsi:type="PQ " value="3.57" /> <interpretationCode codeSystem="local" code="*" /> <referenceRange> <observationRange> <text>4.00- 6.00</text> </observationRange> </referenceRange> </ observation> </component> <component> <observation moodCode= "EVN" classCode="OBS"> <templateId root="16.840.1.665520.10.2022.4.2 " /> <id nullFlavor="NA" /> <code codeSystem="local" code="RDW " displayName="RED CELL DISTRIBUTION WIDTH" /> <statusCode code= "completed" /> <effectiveTime value="" /> <value unit="%" xsi:type="PQ" value="15.0" /> <referenceRange> <observationRange> <text>11.0-15.6</text> </ observationRange> </referenceRange> </observation> </ component> <component> <observation moodCode="EVN" classCode="OBS"> <templateId root="12.02.840.1.966940.102022.4.2" /> <id nullFlavor="NA" /> <code codeSystem="local" code="WBC" displayName= "WHITE BLOOD CELL" /> <statusCode code="completed" /> < effectiveTime value="" /> <value unit="k/cumm" xsi:type="PQ " value="7.9" /> <referenceRange> <observationRange> <text>5.0-10.0</text> </observationRange> </ referenceRange> </observation> </component> <component> <observation moodCode="EVN" classCode="OBS"> <templateId root= "12.02.840.1.473563.10.20.22.4.2" /> <id nullFlavor="NA" /> < code codeSystem="local" code="HGBT" displayName="HEMOGLOBIN" /> < statusCode code="completed" /> <effectiveTime value="082520103893" /> <value unit="gm/dL" xsi:type="PQ" value="10.3" /> < interpretationCode codeSystem="local" code="*" /> <referenceRange> <observationRange> <text>14.0-18.0</text> </ observationRange> </referenceRange> </observation> </ component> <component> <observation moodCode="EVN" classCode="OBS"> <templateId root="216.840.1.497266.10.20.22.4.2" /> <id nullFlavor="NA" /> <code codeSystem="local" code="HCTT" displayName= "HEMATOCRIT" /> <statusCode code="completed" /> < effectiveTime value="921508720931" /> <value unit="%" xsi:type="PQ " value="31.5" /> <interpretationCode codeSystem="local" code="*" /> <referenceRange> <observationRange> <text>40.0- 54.0</text> </observationRange> </referenceRange> </ observation> </component> <component> <observation moodCode= "EVN" classCode="OBS"> <templateId root="216.840.1.327396.10...4.2 " /> <id nullFlavor="NA" /> <code codeSystem="local" code="PLT " displayName="PLATELET COUNT" /> <statusCode code="completed" /> <effectiveTime value="240615921855" /> <value unit="k/cumm" xsi: type="PQ" value="466" /> <interpretationCode codeSystem="local" code="* " /> <referenceRange> <observationRange> <text> 150-450</text> </observationRange> </referenceRange> </observation> </component> </organizer> </entry> <entry> < organizer moodCode="EVN" classCode="BATTERY"> <templateId root= "216.840.1.221292.10.20.22.4.1" /> <id nullFlavor="NA" /> <code codeSystem="local" code="METAB" displayName="METABOLIC PANEL, BASIC" /> < statusCode code="completed" /> <component> <observation moodCode= "EVN" classCode="OBS"> <templateId root="12.02.840.1.731092.10.2022.4.2 " /> <id nullFlavor="NA" /> <code codeSystem="local" code="K" displayName="POTASSIUM" /> <statusCode code="completed" /> < effectiveTime value="" /> <value unit="mmol/L" xsi:type="PQ " value="3.7" /> <referenceRange> <observationRange> <text>3.5-5.3</text> </observationRange> </ referenceRange> </observation> </component> <component> <observation moodCode="EVN" classCode="OBS"> <templateId root= "840.1.157218.08.05.22.4.2" /> <id nullFlavor="NA" /> < code codeSystem="local" code="eGFR" displayName="EST GFR (MDRD)" /> < statusCode code="completed" /> <effectiveTime value="" /> <value unit="mL/min" xsi:type="PQ" value="49" /> < interpretationCode codeSystem="local" code="*" /> <referenceRange> <observationRange> <text>> 59</text> </ observationRange> </referenceRange> </observation> </ component> <component> <observation moodCode="EVN" classCode="OBS"> <templateId root="12.02.840.1.872286.10..22.4.2" /> <id nullFlavor="NA" /> <code codeSystem="local" code="GAP" displayName= "ANION GAP" /> <statusCode code="completed" /> <effectiveTime value="" /> <value unit="mmol/L" xsi:type="PQ" value="11" / > <referenceRange> <observationRange> <text>5- 15</text> </observationRange> </referenceRange> </ observation> </component> <component> <observation moodCode= "EVN" classCode="OBS"> <templateId root="216.840.1.228328.10..22.4.2 " /> <id nullFlavor="NA" /> <code codeSystem="local" code= "eCrCl" displayName="EST CrCl (CG)" /> <statusCode code="completed" /> <effectiveTime value="" /> <value unit="mL/min" xsi:type="PQ" value="51" /> <interpretationCode codeSystem="local" code ="*" /> <referenceRange> <observationRange> < text>> 59</text> </observationRange> </referenceRange> </observation> </component> <component> <observation moodCode="EVN" classCode="OBS"> <templateId root= "16.840.1.433682.10..22.4.2" /> <id nullFlavor="NA" /> < code codeSystem="local" code="GLU" displayName="GLUCOSE" /> < statusCode code="completed" /> <effectiveTime value="" /> <value unit="mg/dL" xsi:type="PQ" value="139" /> < interpretationCode codeSystem="local" code="*" /> <referenceRange> <observationRange> <text>70-99</text> </ observationRange> </referenceRange> </observation> </ component> <component> <observation moodCode="EVN" classCode="OBS"> <templateId root="16.840.1.320533.10.22.4.2" /> <id nullFlavor="NA" /> <code codeSystem="local" code="CA" displayName= "CALCIUM" /> <statusCode code="completed" /> <effectiveTime value="" /> <value unit="mg/dL" xsi:type="PQ" value="8.7" / > <referenceRange> <observationRange> <text>8.5 -10.1</text> </observationRange> </referenceRange> </ observation> </component> <component> <observation moodCode= "EVN" classCode="OBS"> <templateId root="16.840.1.862914..22.4.2 " /> <id nullFlavor="NA" /> <code codeSystem="local" code="BUN " displayName="BLOOD UREA NITROGEN" /> <statusCode code="completed" /> <effectiveTime value="" /> <value unit="mg/dL" xsi:type="PQ" value="21" /> <interpretationCode codeSystem="local" code ="*" /> <referenceRange> <observationRange> < text>7-20</text> </observationRange> </referenceRange> </observation> </component> <component> <observation moodCode="EVN" classCode="OBS"> <templateId root= "12.02.840.1.504817.10..22.4.2" /> <id nullFlavor="NA" /> < code codeSystem="local" code="CREAT" displayName="CREATININE" /> < statusCode code="completed" /> <effectiveTime value="" /> <value unit="mg/dL" xsi:type="PQ" value="1.4" /> < interpretationCode codeSystem="local" code="*" /> <referenceRange> <observationRange> <text>0.7-1.3</text> </ observationRange> </referenceRange> </observation> </ component> <component> <observation moodCode="EVN" classCode="OBS"> <templateId root="216.840.1.777236.10..22.4.2" /> <id nullFlavor="NA" /> <code codeSystem="local" code="NA" displayName= "SODIUM" /> <statusCode code="completed" /> <effectiveTime value="" /> <value unit="mmol/L" xsi:type="PQ" value="140" /> <referenceRange> <observationRange> <text> 135-148</text> </observationRange> </referenceRange> </observation> </component> <component> <observation moodCode= "EVN" classCode="OBS"> <templateId root="12.02.840.1.690070.10.22.4.2 " /> <id nullFlavor="NA" /> <code codeSystem="local" code="CL " displayName="CHLORIDE" /> <statusCode code="completed" /> < effectiveTime value="" /> <value unit="mmol/L" xsi:type="PQ " value="109" /> <referenceRange> <observationRange> <text>98-110</text> </observationRange> </ referenceRange> </observation> </component> <component> <observation moodCode="EVN" classCode="OBS"> <templateId root= "12.02.840.1.980294.10..22.4.2" /> <id nullFlavor="NA" /> < code codeSystem="local" code="CO2" displayName="CARBON DIOXIDE" /> < statusCode code="completed" /> <effectiveTime value="" /> <value unit="mmol/L" xsi:type="PQ" value="20" /> < interpretationCode codeSystem="local" code="*" /> <referenceRange> <observationRange> <text>21-32</text> </ observationRange> </referenceRange> </observation> </ component> </organizer> </entry> <entry> <organizer moodCode="EVN" classCode="BATTERY"> <templateId root="16.840.1.057988.10..22.4.1" /> <id nullFlavor="NA" /> <code codeSystem="local" code="PHOS" displayName="PHOSPHORUS" /> <statusCode code="completed" /> <component > <observation moodCode="EVN" classCode="OBS"> <templateId root= "216.840.1.232787.10..22.4.2" /> <id nullFlavor="NA" /> < code codeSystem="local" code="PHOS" displayName="PHOSPHORUS" /> < statusCode code="completed" /> <effectiveTime value="[id number]" /> <value unit="mg/dL" xsi:type="PQ" value="3.0" /> < referenceRange> <observationRange> <text>2.5-4.9</text> </observationRange> </referenceRange> </observation > </component> </organizer> </entry> <entry> <organizer moodCode= "EVN" classCode="BATTERY"> <templateId root="216.840.1.183704.10..22.4.1 " /> <id nullFlavor="NA" /> <code codeSystem="local" code="CK" displayName="CREATINE KINASE (CK/CPK)" /> <statusCode code="completed" /> <component> <observation moodCode="EVN" classCode="OBS"> < templateId root="12.02.840.1.566595.10..4.2" /> <id nullFlavor="NA " /> <code codeSystem="local" code="CK" displayName="CREATINE KINASE ( CK/CPK)" /> <statusCode code="completed" /> <effectiveTime value="" /> <value unit="Units/L" xsi:type="PQ" value="53" /> <referenceRange> <observationRange> <text>& lt; 309</text> </observationRange> </referenceRange> </observation> </component> </organizer> </entry> <entry> < organizer moodCode="EVN" classCode="BATTERY"> <templateId root= "12.02.840.1.300926.08.05.22.4.1" /> <id nullFlavor="NA" /> <code codeSystem="local" code="MAG" displayName="MAGNESIUM" /> <statusCode code= "completed" /> <component> <observation moodCode="EVN" classCode= "OBS"> <templateId root="216.840.1.010757.08.05.22.4.2" /> < id nullFlavor="NA" /> <code codeSystem="local" code="MAG" displayName= "MAGNESIUM" /> <statusCode code="completed" /> <effectiveTime value="" /> <value unit="mg/dL" xsi:type="PQ" value="1.9" / > <referenceRange> <observationRange> <text>1.8 -2.4</text> </observationRange> </referenceRange> </ observation> </component> </organizer> </entry> <entry> <organizer moodCode="EVN" classCode="BATTERY"> <templateId root= "16.840.1.607514.08.05.22.4.1" /> <id nullFlavor="NA" /> <code codeSystem="local" code="CRP" displayName="C REACTIVE PROTEIN" /> < statusCode code="completed" /> <component> <observation moodCode= "EVN" classCode="OBS"> <templateId root="840.1.893352.08.05.22.4.2 " /> <id nullFlavor="NA" /> <code codeSystem="local" code="CRP " displayName="C REACTIVE PROTEIN" /> <statusCode code="completed" /> <effectiveTime value="" /> <value unit="mg/dL" xsi :type="PQ" value="6.0" /> <interpretationCode codeSystem="local" code= "*" /> <referenceRange> <observationRange> < text>0.00-0.90</text> </observationRange> </referenceRange> </observation> </component> </organizer> </entry> <entry> < organizer moodCode="EVN" classCode="BATTERY"> <templateId root= "840.1.067161.08.05.22.4.1" /> <id nullFlavor="NA" /> <code codeSystem="local" code="SEDWES" displayName="SED RATE WESTERGREN" /> < statusCode code="completed" /> <component> <observation moodCode= "EVN" classCode="OBS"> <templateId root="12.02.840.1.271103.08.05.22.4.2 " /> <id nullFlavor="NA" /> <code codeSystem="local" code= "SEDWES" displayName="SED RATE WESTERGREN" /> <statusCode code= "completed" /> <effectiveTime value="" /> <value unit="mm/hr" xsi:type="PQ" value="86" /> <interpretationCode codeSystem ="local" code="*" /> <referenceRange> <observationRange> <text>0-20</text> </observationRange> </ referenceRange> </observation> </component> </organizer> </entry > <entry> <organizer moodCode="EVN" classCode="BATTERY"> <templateId root="12.02.840.1.251416.10..22.4.1" /> <id nullFlavor="NA" /> <code codeSystem="local" code="VBG" displayName="VENOUS BLOOD GAS" /> < statusCode code="completed" /> <component> <observation moodCode= "EVN" classCode="OBS"> <templateId root="16.840.1.786652.10...4.2 " /> <id nullFlavor="NA" /> <code codeSystem="local" code="ELMIRA " displayName="VBG BASE EXCESS" /> <statusCode code="completed" /> <effectiveTime value="" /> <value unit="mEq/L" xsi: type="PQ" value="-2.1" /> <referenceRange> <observationRange > <text>-3.0-3.0</text> </observationRange> </ referenceRange> </observation> </component> <component> <observation moodCode="EVN" classCode="OBS"> <templateId root= "12.02.840.1.297946.10.22.4.2" /> <id nullFlavor="NA" /> < code codeSystem="local" code="HCO3V" displayName="VBG BICARBONATE" /> < statusCode code="completed" /> <effectiveTime value="" /> <value unit="meq/L" xsi:type="PQ" value="21.0" /> < referenceRange> <observationRange> <text>21-30</text> </observationRange> </referenceRange> </observation> </component> <component> <observation moodCode="EVN" classCode= "OBS"> <templateId root="12.02.840.1.981702.10.20.22.4.2" /> < id nullFlavor="NA" /> <code codeSystem="local" code="PCO2V" displayName ="VBG PCO2" /> <statusCode code="completed" /> <effectiveTime value="" /> <value unit="mmHg" xsi:type="PQ" value="31" /> <interpretationCode codeSystem="local" code="*" /> < referenceRange> <observationRange> <text>41-51</text> </observationRange> </referenceRange> </observation> </component> <component> <observation moodCode="EVN" classCode= "OBS"> <templateId root="12.02.840.1.073237.10.22.4.2" /> < id nullFlavor="NA" /> <code codeSystem="local" code="PHV" displayName= "VBG PH" /> <statusCode code="completed" /> <effectiveTime value="" /> <value unit="" xsi:type="PQ" value="7.46" /> <interpretationCode codeSystem="local" code="*" /> < referenceRange> <observationRange> <text>7.33-7.43</text > </observationRange> </referenceRange> </observation > </component> <component> <observation moodCode="EVN" classCode="OBS"> <templateId root="12.02.840.1.294050.10.20.22.4.2" /> <id nullFlavor="NA" /> <code codeSystem="local" code="PO2V" displayName="VBG PO2" /> <statusCode code="completed" /> < effectiveTime value="462538948006" /> <value unit="mmHg" xsi:type="PQ" value="60" /> <interpretationCode codeSystem="local" code="*" /> <referenceRange> <observationRange> <text>35-40</ text> </observationRange> </referenceRange> </ observation> </component> <component> <observation moodCode= "EVN" classCode="OBS"> <templateId root="2.16.840.1.328006.10.20.22.4.2 " /> <id nullFlavor="NA" /> <code codeSystem="local" code= "SATV" displayName="VBG O2 SATURATION" /> <statusCode code="completed" /> <effectiveTime value="176171228924" /> <value unit="%" xsi:type="PQ" value="90" /> <interpretationCode codeSystem="local" code ="*" /> <referenceRange> <observationRange> < text>65-75</text> </observationRange> </referenceRange> </observation> </component> <component> <observation moodCode="EVN" classCode="OBS"> <templateId root= "2.16.840.1.331787.10..22.4.2" /> <id nullFlavor="NA" /> < code codeSystem="local" code="VBGCOM" displayName="COMMENT" /> < statusCode code="completed" /> <effectiveTime value="101175427487" /> <value unit="" xsi:type="PQ" value="2L" /> <referenceRange> <observationRange> <text /> </observationRange > </referenceRange> </observation> </component> </ organizer> </entry> <entry> <organizer moodCode="EVN" classCode="BATTERY"> <templateId root="2.16.840.1.529841.10..22.4.1" /> <id nullFlavor= "NA" /> <code codeSystem="local" code="BC" displayName="BLOOD CULTURE" /> <statusCode code="completed" /> <component> <observation moodCode="EVN" classCode="OBS"> <templateId root= "2.16.840.1.736306.10..4.2" /> <id nullFlavor="NA" /> < code codeSystem="local" code="MB" displayName="Microbiology" /> < statusCode code="completed" /> <effectiveTime value="559933916805" /> <value xsi:type="ST" value="<pre><b>BLOOD CULTURE</b> See BelowBLOOD CULTURE(F) Ruma Date/Time: 11/30/2015 10:37 Viktoria Date/Time: // :SOURCE: BLOODSPEC DESC: PERIPHERALSee BelowIs this the first BLOOD CULTURE or a possible SEPSIS patient? N: [id number] CULTURE(F ) Ruma Date/Time: 11/30/2015 10:37 Viktoria Date/Time: 12/05/2015 20:53SOURCE: BLOODSPEC DESC: [id number] [facility] [place] [address]</pre>" / > <referenceRange> <observationRange> <text /> </observationRange> </referenceRange> </observation > </component> </organizer> </entry> <entry> <organizer moodCode= "EVN" classCode="BATTERY"> <templateId root="2.16.840.1.557470.10...4.1 " /> <id nullFlavor="NA" /> <code codeSystem="local" code="BC" displayName="BLOOD CULTURE" /> <statusCode code="completed" /> < component> <observation moodCode="EVN" classCode="OBS"> < templateId root="216.840.1.975892.10..4.2" /> <id nullFlavor="NA " /> <code codeSystem="local" code="MB" displayName="Microbiology" /> <statusCode code="completed" /> <effectiveTime value= "641046225387" /> <value xsi:type="ST" value="<pre><b>BLOOD CULTURE</b > See BelowBLOOD CULTURE(F) Ruma Date/Time: 11/30/2015 10:48 Viktoria Date/Time: // :SOURCE: BLOODSPEC DESC: PERIPHERALSee BelowIs this the first BLOOD CULTURE or a possible SEPSIS patient ? N: [id number] CULTURE(F) Ruma Date/Time: 11/30/2015 10:48 Viktoria Date/Time: 12/05/2015 20:53SOURCE: BLOODSPEC DESC : [id number] [facility] [facility] [place] [address]</pre>" /> <referenceRange> <observationRange> <text /> </observationRange> </referenceRange> </observation> </component> </organizer> </entry> <entry> < organizer moodCode="EVN" classCode="BATTERY"> <templateId root= "16.840.1.239847.10..4.1" /> <id nullFlavor="NA" /> <code codeSystem="local" code="CBC" displayName="CBC" /> <statusCode code= "completed" /> <component> <observation moodCode="EVN" classCode= "OBS"> <templateId root="216.840.1.775211.10..22.4.2" /> < id nullFlavor="NA" /> <code codeSystem="local" code="MCH" displayName= "MEAN CELL HGB" /> <statusCode code="completed" /> < effectiveTime value="182048217781" /> <value unit="pg" xsi:type="PQ" value="28.9" /> <referenceRange> <observationRange> <text>27.0-33.0</text> </observationRange> </ referenceRange> </observation> </component> <component> <observation moodCode="EVN" classCode="OBS"> <templateId root= "216.840.1.206908.10..22.4.2" /> <id nullFlavor="NA" /> < code codeSystem="local" code="MCHC" displayName="MEAN CELL HGB CONCENTRATION" / > <statusCode code="completed" /> <effectiveTime value= "" /> <value unit="g/dL" xsi:type="PQ" value="32.9" /> <referenceRange> <observationRange> <text>32.0- 37.0</text> </observationRange> </referenceRange> </ observation> </component> <component> <observation moodCode= "EVN" classCode="OBS"> <templateId root="16.840.1.244213.10...4.2 " /> <id nullFlavor="NA" /> <code codeSystem="local" code="MCV " displayName="MEAN CELL VOLUME" /> <statusCode code="completed" /> <effectiveTime value="" /> <value unit="fl" xsi:type ="PQ" value="87.8" /> <referenceRange> <observationRange> <text>80.0-100.0</text> </observationRange> </ referenceRange> </observation> </component> <component> <observation moodCode="EVN" classCode="OBS"> <templateId root= "216.840.1.728248.10..22.4.2" /> <id nullFlavor="NA" /> < code codeSystem="local" code="RBC" displayName="RED BLOOD CELL" /> < statusCode code="completed" /> <effectiveTime value="" /> <value unit="m/cumm" xsi:type="PQ" value="3.53" /> < interpretationCode codeSystem="local" code="*" /> <referenceRange> <observationRange> <text>4.00-6.00</text> </ observationRange> </referenceRange> </observation> </ component> <component> <observation moodCode="EVN" classCode="OBS"> <templateId root="2.16.840.1.243230.10..22.4.2" /> <id nullFlavor="NA" /> <code codeSystem="local" code="RDW" displayName=" RED CELL DISTRIBUTION WIDTH" /> <statusCode code="completed" /> <effectiveTime value="" /> <value unit="%" xsi:type= "PQ" value="14.9" /> <referenceRange> <observationRange> <text>11.0-15.6</text> </observationRange> </ referenceRange> </observation> </component> <component> <observation moodCode="EVN" classCode="OBS"> <templateId root= "2.16.840.1.112981.10..22.4.2" /> <id nullFlavor="NA" /> < code codeSystem="local" code="WBC" displayName="WHITE BLOOD CELL" /> < statusCode code="completed" /> <effectiveTime value="" /> <value unit="k/cumm" xsi:type="PQ" value="8.9" /> < referenceRange> <observationRange> <text>5.0-10.0</text > </observationRange> </referenceRange> </observation > </component> <component> <observation moodCode="EVN" classCode="OBS"> <templateId root="216.840.1.994306.10.22.4.2" /> <id nullFlavor="NA" /> <code codeSystem="local" code="HGBT" displayName="HEMOGLOBIN" /> <statusCode code="completed" /> < effectiveTime value="" /> <value unit="gm/dL" xsi:type="PQ " value="10.2" /> <interpretationCode codeSystem="local" code="*" /> <referenceRange> <observationRange> <text>14.0- 18.0</text> </observationRange> </referenceRange> </ observation> </component> <component> <observation moodCode= "EVN" classCode="OBS"> <templateId root="12.02.840.1.508105.08.05.22.4.2 " /> <id nullFlavor="NA" /> <code codeSystem="local" code= "HCTT" displayName="HEMATOCRIT" /> <statusCode code="completed" /> <effectiveTime value="" /> <value unit="%" xsi: type="PQ" value="31.0" /> <interpretationCode codeSystem="local" code= "*" /> <referenceRange> <observationRange> < text>40.0-54.0</text> </observationRange> </referenceRange> </observation> </component> <component> <observation moodCode="EVN" classCode="OBS"> <templateId root= "16.840.1.040405.10.2022.4.2" /> <id nullFlavor="NA" /> < code codeSystem="local" code="PLT" displayName="PLATELET COUNT" /> < statusCode code="completed" /> <effectiveTime value="101171224832" /> <value unit="k/cumm" xsi:type="PQ" value="478" /> < interpretationCode codeSystem="local" code="*" /> <referenceRange> <observationRange> <text>150-450</text> </ observationRange> </referenceRange> </observation> </ component> </organizer> </entry> <entry> <organizer moodCode="EVN" classCode="BATTERY"> <templateId root="12.02.840.1.265510.10..22.4.1" /> <id nullFlavor="NA" /> <code codeSystem="local" code="METAB" displayName="METABOLIC PANEL, BASIC" /> <statusCode code="completed" /> <component> <observation moodCode="EVN" classCode="OBS"> < templateId root="12.02.840.1.216148.10...4.2" /> <id nullFlavor="NA " /> <code codeSystem="local" code="K" displayName="POTASSIUM" /> <statusCode code="completed" /> <effectiveTime value=" " /> <value unit="mmol/L" xsi:type="PQ" value="3.8" /> < referenceRange> <observationRange> <text>3.5-5.3</text> </observationRange> </referenceRange> </observation > </component> <component> <observation moodCode="EVN" classCode="OBS"> <templateId root="12.02.840.1.016606.10...4.2" /> <id nullFlavor="NA" /> <code codeSystem="local" code="eGFR" displayName="EST GFR (MDRD)" /> <statusCode code="completed" /> <effectiveTime value="" /> <value unit="mL/min" xsi:type ="PQ" value="53" /> <interpretationCode codeSystem="local" code="*" /> <referenceRange> <observationRange> <text>&gt ; 59</text> </observationRange> </referenceRange> </ observation> </component> <component> <observation moodCode= "EVN" classCode="OBS"> <templateId root="216.840.1.047424.10..22.4.2 " /> <id nullFlavor="NA" /> <code codeSystem="local" code="GAP " displayName="ANION GAP" /> <statusCode code="completed" /> < effectiveTime value="" /> <value unit="mmol/L" xsi:type="PQ " value="11" /> <referenceRange> <observationRange> <text>5-15</text> </observationRange> </referenceRange > </observation> </component> <component> <observation moodCode="EVN" classCode="OBS"> <templateId root= "12.02.840.1.015332.10...4.2" /> <id nullFlavor="NA" /> < code codeSystem="local" code="eCrCl" displayName="EST CrCl (CG)" /> < statusCode code="completed" /> <effectiveTime value="" /> <value unit="mL/min" xsi:type="PQ" value="55" /> < interpretationCode codeSystem="local" code="*" /> <referenceRange> <observationRange> <text>> 59</text> </ observationRange> </referenceRange> </observation> </ component> <component> <observation moodCode="EVN" classCode="OBS"> <templateId root="12.02.840.1.263782.10..22.4.2" /> <id nullFlavor="NA" /> <code codeSystem="local" code="GLU" displayName= "GLUCOSE" /> <statusCode code="completed" /> <effectiveTime value="382070189320" /> <value unit="mg/dL" xsi:type="PQ" value="95" / > <referenceRange> <observationRange> <text>70- 99</text> </observationRange> </referenceRange> </ observation> </component> <component> <observation moodCode= "EVN" classCode="OBS"> <templateId root="216.840.1.566471.10..22.4.2 " /> <id nullFlavor="NA" /> <code codeSystem="local" code="CA " displayName="CALCIUM" /> <statusCode code="completed" /> < effectiveTime value="" /> <value unit="mg/dL" xsi:type="PQ " value="8.8" /> <referenceRange> <observationRange> <text>8.5-10.1</text> </observationRange> </ referenceRange> </observation> </component> <component> <observation moodCode="EVN" classCode="OBS"> <templateId root= "2.16.840.1.201676.10..22.4.2" /> <id nullFlavor="NA" /> < code codeSystem="local" code="BUN" displayName="BLOOD UREA NITROGEN" /> <statusCode code="completed" /> <effectiveTime value="059192812269" / > <value unit="mg/dL" xsi:type="PQ" value="27" /> < interpretationCode codeSystem="local" code="*" /> <referenceRange> <observationRange> <text>7-20</text> </ observationRange> </referenceRange> </observation> </ component> <component> <observation moodCode="EVN" classCode="OBS"> <templateId root="216.840.1.553572.10..22.4.2" /> <id nullFlavor="NA" /> <code codeSystem="local" code="CREAT" displayName= "CREATININE" /> <statusCode code="completed" /> < effectiveTime value="" /> <value unit="mg/dL" xsi:type="PQ " value="1.3" /> <referenceRange> <observationRange> <text>0.7-1.3</text> </observationRange> </ referenceRange> </observation> </component> <component> <observation moodCode="EVN" classCode="OBS"> <templateId root= "16.840.1.743096.10..4.2" /> <id nullFlavor="NA" /> < code codeSystem="local" code="NA" displayName="SODIUM" /> <statusCode code="completed" /> <effectiveTime value="" /> < value unit="mmol/L" xsi:type="PQ" value="140" /> <referenceRange> <observationRange> <text>135-148</text> </ observationRange> </referenceRange> </observation> </ component> <component> <observation moodCode="EVN" classCode="OBS"> <templateId root="12.02.840.1.950771.10..22.4.2" /> <id nullFlavor="NA" /> <code codeSystem="local" code="CL" displayName= "CHLORIDE" /> <statusCode code="completed" /> <effectiveTime value="631967801647" /> <value unit="mmol/L" xsi:type="PQ" value="108" /> <referenceRange> <observationRange> <text>98 -110</text> </observationRange> </referenceRange> </ observation> </component> <component> <observation moodCode= "EVN" classCode="OBS"> <templateId root="2.16.840.1.952847.10..22.4.2 " /> <id nullFlavor="NA" /> <code codeSystem="local" code="CO2 " displayName="CARBON DIOXIDE" /> <statusCode code="completed" /> <effectiveTime value="" /> <value unit="mmol/L" xsi: type="PQ" value="21" /> <referenceRange> <observationRange> <text>21-32</text> </observationRange> </ referenceRange> </observation> </component> </organizer> </entry > <entry> <organizer moodCode="EVN" classCode="BATTERY"> <templateId root="2.16.840.1.974136.10..22.4.1" /> <id nullFlavor="NA" /> <code codeSystem="local" code="PHOS" displayName="PHOSPHORUS" /> <statusCode code ="completed" /> <component> <observation moodCode="EVN" classCode= "OBS"> <templateId root="2.16.840.1.253367.10..22.4.2" /> < id nullFlavor="NA" /> <code codeSystem="local" code="PHOS" displayName= "PHOSPHORUS" /> <statusCode code="completed" /> < effectiveTime value="" /> <value unit="mg/dL" xsi:type="PQ " value="3.1" /> <referenceRange> <observationRange> <text>2.5-4.9</text> </observationRange> </ referenceRange> </observation> </component> </organizer> </entry > <entry> <organizer moodCode="EVN" classCode="BATTERY"> <templateId root="16.840.1.921316.10..4.1" /> <id nullFlavor="NA" /> <code codeSystem="local" code="MAG" displayName="MAGNESIUM" /> <statusCode code= "completed" /> <component> <observation moodCode="EVN" classCode= "OBS"> <templateId root="12.02.840.1.040904.08.05.22.4.2" /> < id nullFlavor="NA" /> <code codeSystem="local" code="MAG" displayName= "MAGNESIUM" /> <statusCode code="completed" /> <effectiveTime value="" /> <value unit="mg/dL" xsi:type="PQ" value="1.8" / > <referenceRange> <observationRange> <text>1.8 -2.4</text> </observationRange> </referenceRange> </ observation> </component> </organizer> </entry> <entry> <organizer moodCode="EVN" classCode="BATTERY"> <templateId root= "12.02.840.1.838610.08.05.22.4.1" /> <id nullFlavor="NA" /> <code codeSystem="local" code="NESTOR" displayName="FERRITIN" /> <statusCode code= "completed" /> <component> <observation moodCode="EVN" classCode= "OBS"> <templateId root="12.02.840.1.536232.08.05.22.4.2" /> < id nullFlavor="NA" /> <code codeSystem="local" code="NESTOR" displayName= "FERRITIN" /> <statusCode code="completed" /> <effectiveTime value="" /> <value unit="ng/mL" xsi:type="PQ" value="175" / > <referenceRange> <observationRange> <text>26- 388</text> </observationRange> </referenceRange> </ observation> </component> </organizer> </entry> <entry> <organizer moodCode="EVN" classCode="BATTERY"> <templateId root= "216.840.1.813458.10..22.4.1" /> <id nullFlavor="NA" /> <code codeSystem="local" code="FETIBC" displayName="IRON W/ BINDING CAPACITY" /> <statusCode code="completed" /> <component> <observation moodCode= "EVN" classCode="OBS"> <templateId root="216.840.1.401098..22.4.2 " /> <id nullFlavor="NA" /> <code codeSystem="local" code= "FESAT" displayName="IRON SATURATION" /> <statusCode code="completed" / > <effectiveTime value="" /> <value unit="%SAT " xsi:type="PQ" value="13" /> <referenceRange> < observationRange> <text>11-46</text> </observationRange > </referenceRange> </observation> </component> < component> <observation moodCode="EVN" classCode="OBS"> < templateId root="216.840.1.884016.1022.4.2" /> <id nullFlavor="NA " /> <code codeSystem="local" code="TIBC" displayName="IRON BINDING CAPACITY, TOTAL" /> <statusCode code="completed" /> < effectiveTime value="536936845354" /> <value unit="mcg/dL" xsi:type="PQ " value="229" /> <interpretationCode codeSystem="local" code="*" /> <referenceRange> <observationRange> <text>250-450 </text> </observationRange> </referenceRange> </ observation> </component> <component> <observation moodCode= "EVN" classCode="OBS"> <templateId root="216.840.1.801307.10..4.2 " /> <id nullFlavor="NA" /> <code codeSystem="local" code= "IRON" displayName="IRON" /> <statusCode code="completed" /> < effectiveTime value="822410078310" /> <value unit="mcg/dL" xsi:type="PQ " value="30" /> <interpretationCode codeSystem="local" code="*" /> <referenceRange> <observationRange> <text>35-150</ text> </observationRange> </referenceRange> </ observation> </component> </organizer> </entry> <entry> <organizer moodCode="EVN" classCode="BATTERY"> <templateId root= "216.840.1.349679.10..22.4.1" /> <id nullFlavor="NA" /> <code codeSystem="local" code="CBC" displayName="CBC" /> <statusCode code= "completed" /> <component> <observation moodCode="EVN" classCode= "OBS"> <templateId root="216.840.1.772319.10..22.4.2" /> < id nullFlavor="NA" /> <code codeSystem="local" code="MCH" displayName= "MEAN CELL HGB" /> <statusCode code="completed" /> < effectiveTime value="267375660084" /> <value unit="pg" xsi:type="PQ" value="28.8" /> <referenceRange> <observationRange> <text>27.0-33.0</text> </observationRange> </ referenceRange> </observation> </component> <component> <observation moodCode="EVN" classCode="OBS"> <templateId root= "16.840.1.656192.10..22.4.2" /> <id nullFlavor="NA" /> < code codeSystem="local" code="MCHC" displayName="MEAN CELL HGB CONCENTRATION" / > <statusCode code="completed" /> <effectiveTime value= "" /> <value unit="g/dL" xsi:type="PQ" value="33.9" /> <referenceRange> <observationRange> <text>32.0- 37.0</text> </observationRange> </referenceRange> </ observation> </component> <component> <observation moodCode= "EVN" classCode="OBS"> <templateId root="12.02.840.1.415104.10..4.2 " /> <id nullFlavor="NA" /> <code codeSystem="local" code="MCV " displayName="MEAN CELL VOLUME" /> <statusCode code="completed" /> <effectiveTime value="" /> <value unit="fl" xsi:type ="PQ" value="84.9" /> <referenceRange> <observationRange> <text>80.0-100.0</text> </observationRange> </ referenceRange> </observation> </component> <component> <observation moodCode="EVN" classCode="OBS"> <templateId root= "12.02.840.1.093075.10.20.22.4.2" /> <id nullFlavor="NA" /> < code codeSystem="local" code="RBC" displayName="RED BLOOD CELL" /> < statusCode code="completed" /> <effectiveTime value="" /> <value unit="m/cumm" xsi:type="PQ" value="4.65" /> < referenceRange> <observationRange> <text>4.00-6.00</text > </observationRange> </referenceRange> </observation > </component> <component> <observation moodCode="EVN" classCode="OBS"> <templateId root="216.840.1.204923.10.20.22.4.2" /> <id nullFlavor="NA" /> <code codeSystem="local" code="RDW" displayName="RED CELL DISTRIBUTION WIDTH" /> <statusCode code= "completed" /> <effectiveTime value="184560957521" /> <value unit="%" xsi:type="PQ" value="15.2" /> <referenceRange> <observationRange> <text>11.0-15.6</text> </ observationRange> </referenceRange> </observation> </ component> <component> <observation moodCode="EVN" classCode="OBS"> <templateId root="840.1.784102.10.2022.4.2" /> <id nullFlavor="NA" /> <code codeSystem="local" code="WBC" displayName= "WHITE BLOOD CELL" /> <statusCode code="completed" /> < effectiveTime value="003264110696" /> <value unit="k/cumm" xsi:type="PQ " value="5.7" /> <referenceRange> <observationRange> <text>5.0-10.0</text> </observationRange> </ referenceRange> </observation> </component> <component> <observation moodCode="EVN" classCode="OBS"> <templateId root= "12.02.840.1.520601.10.20.22.4.2" /> <id nullFlavor="NA" /> < code codeSystem="local" code="HGBT" displayName="HEMOGLOBIN" /> < statusCode code="completed" /> <effectiveTime value="593499214300" /> <value unit="gm/dL" xsi:type="PQ" value="13.4" /> < interpretationCode codeSystem="local" code="*" /> <referenceRange> <observationRange> <text>14.0-18.0</text> </ observationRange> </referenceRange> </observation> </ component> <component> <observation moodCode="EVN" classCode="OBS"> <templateId root="2.16.840.1.080122.10.20.22.4.2" /> <id nullFlavor="NA" /> <code codeSystem="local" code="HCTT" displayName= "HEMATOCRIT" /> <statusCode code="completed" /> < effectiveTime value="660683458095" /> <value unit="%" xsi:type="PQ " value="39.5" /> <interpretationCode codeSystem="local" code="*" /> <referenceRange> <observationRange> <text>40.0- 54.0</text> </observationRange> </referenceRange> </ observation> </component> <component> <observation moodCode= "EVN" classCode="OBS"> <templateId root="2.16.840.1.557644.10.20.22.4.2 " /> <id nullFlavor="NA" /> <code codeSystem="local" code="PLT " displayName="PLATELET COUNT" /> <statusCode code="completed" /> <effectiveTime value="025982283941" /> <value unit="k/cumm" xsi: type="PQ" value="180" /> <referenceRange> <observationRange > <text>150-450</text> </observationRange> </ referenceRange> </observation> </component> </organizer> </entry > <entry> <organizer moodCode="EVN" classCode="BATTERY"> <templateId root="216.840.1.192901.10..22.4.1" /> <id nullFlavor="NA" /> <code codeSystem="local" code="PT" displayName="PROTHROMBIN TIME WITH INR" /> < statusCode code="completed" /> <component> <observation moodCode= "EVN" classCode="OBS"> <templateId root="12.02.840.1.006119.10...4.2 " /> <id nullFlavor="NA" /> <code codeSystem="local" code= "INRX" displayName="INTERNATIONAL NORMAL RATIO" /> <statusCode code= "completed" /> <effectiveTime value="" /> <value unit="" xsi:type="PQ" value="0.9" /> <referenceRange> < observationRange> <text>0.9-1.1</text> </ observationRange> </referenceRange> </observation> </ component> <component> <observation moodCode="EVN" classCode="OBS"> <templateId root="216.840.1.713669.10...4.2" /> <id nullFlavor="NA" /> <code codeSystem="local" code="PTPAT" displayName= "PROTHROMBIN TIME" /> <statusCode code="completed" /> < effectiveTime value="" /> <value unit="sec" xsi:type="PQ" value="10.9" /> <referenceRange> <observationRange> <text>10.0-12.9</text> </observationRange> </ referenceRange> </observation> </component> </organizer> </entry > <entry> <organizer moodCode="EVN" classCode="BATTERY"> <templateId root="216.840.1.624821...22.4.1" /> <id nullFlavor="NA" /> <code codeSystem="local" code="METAB" displayName="METABOLIC PANEL, BASIC" /> < statusCode code="completed" /> <component> <observation moodCode= "EVN" classCode="OBS"> <templateId root="16.840.1.798425....4.2 " /> <id nullFlavor="NA" /> <code codeSystem="local" code="K" displayName="POTASSIUM" /> <statusCode code="completed" /> < effectiveTime value="" /> <value unit="mmol/L" xsi:type="PQ " value="4.1" /> <referenceRange> <observationRange> <text>3.5-5.3</text> </observationRange> </ referenceRange> </observation> </component> <component> <observation moodCode="EVN" classCode="OBS"> <templateId root= "840.1.932776.08.05.22.4.2" /> <id nullFlavor="NA" /> < code codeSystem="local" code="eGFR" displayName="EST GFR (MDRD)" /> < statusCode code="completed" /> <effectiveTime value="" /> <value unit="mL/min" xsi:type="PQ" value="53" /> < interpretationCode codeSystem="local" code="*" /> <referenceRange> <observationRange> <text>> 59</text> </ observationRange> </referenceRange> </observation> </ component> <component> <observation moodCode="EVN" classCode="OBS"> <templateId root="12.02.840.1.208706....4.2" /> <id nullFlavor="NA" /> <code codeSystem="local" code="GAP" displayName= "ANION GAP" /> <statusCode code="completed" /> <effectiveTime value="" /> <value unit="mmol/L" xsi:type="PQ" value="9" / > <referenceRange> <observationRange> <text>5- 15</text> </observationRange> </referenceRange> </ observation> </component> <component> <observation moodCode= "EVN" classCode="OBS"> <templateId root="2.16.840.1.423741.10.20.22.4.2 " /> <id nullFlavor="NA" /> <code codeSystem="local" code= "eCrCl" displayName="EST CrCl (CG)" /> <statusCode code="completed" /> <effectiveTime value="" /> <value unit="mL/min" xsi:type="PQ" value="55" /> <interpretationCode codeSystem="local" code ="*" /> <referenceRange> <observationRange> < text>> 59</text> </observationRange> </referenceRange> </observation> </component> <component> <observation moodCode="EVN" classCode="OBS"> <templateId root= "2.16.840.1.447475.10..22.4.2" /> <id nullFlavor="NA" /> < code codeSystem="local" code="GLU" displayName="GLUCOSE" /> < statusCode code="completed" /> <effectiveTime value="" /> <value unit="mg/dL" xsi:type="PQ" value="103" /> < interpretationCode codeSystem="local" code="*" /> <referenceRange> <observationRange> <text>70-99</text> </ observationRange> </referenceRange> </observation> </ component> <component> <observation moodCode="EVN" classCode="OBS"> <templateId root="216.840.1.830303.10..22.4.2" /> <id nullFlavor="NA" /> <code codeSystem="local" code="CA" displayName= "CALCIUM" /> <statusCode code="completed" /> <effectiveTime value="" /> <value unit="mg/dL" xsi:type="PQ" value="9.1" / > <referenceRange> <observationRange> <text>8.5 -10.1</text> </observationRange> </referenceRange> </ observation> </component> <component> <observation moodCode= "EVN" classCode="OBS"> <templateId root="216.840.1.615408...4.2 " /> <id nullFlavor="NA" /> <code codeSystem="local" code="BUN " displayName="BLOOD UREA NITROGEN" /> <statusCode code="completed" /> <effectiveTime value="" /> <value unit="mg/dL" xsi:type="PQ" value="19" /> <referenceRange> < observationRange> <text>7-20</text> </observationRange> </referenceRange> </observation> </component> < component> <observation moodCode="EVN" classCode="OBS"> < templateId root="16.840.1.016258.10..22.4.2" /> <id nullFlavor="NA " /> <code codeSystem="local" code="CREAT" displayName="CREATININE" /> <statusCode code="completed" /> <effectiveTime value= "" /> <value unit="mg/dL" xsi:type="PQ" value="1.3" /> <referenceRange> <observationRange> <text>0.7-1.3< /text> </observationRange> </referenceRange> </ observation> </component> <component> <observation moodCode= "EVN" classCode="OBS"> <templateId root="216.840.1.777281.10..22.4.2 " /> <id nullFlavor="NA" /> <code codeSystem="local" code="NA " displayName="SODIUM" /> <statusCode code="completed" /> < effectiveTime value="" /> <value unit="mmol/L" xsi:type="PQ " value="139" /> <referenceRange> <observationRange> <text>135-148</text> </observationRange> </ referenceRange> </observation> </component> <component> <observation moodCode="EVN" classCode="OBS"> <templateId root= "12.02.840.1.062642.10...4.2" /> <id nullFlavor="NA" /> < code codeSystem="local" code="CL" displayName="CHLORIDE" /> < statusCode code="completed" /> <effectiveTime value="" /> <value unit="mmol/L" xsi:type="PQ" value="105" /> < referenceRange> <observationRange> <text>98-110</text> </observationRange> </referenceRange> </observation> </component> <component> <observation moodCode="EVN" classCode ="OBS"> <templateId root="12.02.840.1.661715.10..22.4.2" /> < id nullFlavor="NA" /> <code codeSystem="local" code="CO2" displayName= "CARBON DIOXIDE" /> <statusCode code="completed" /> < effectiveTime value="742975063900" /> <value unit="mmol/L" xsi:type="PQ " value="25" /> <referenceRange> <observationRange> <text>21-32</text> </observationRange> </ referenceRange> </observation> </component> </organizer> </entry > <entry> <organizer moodCode="EVN" classCode="BATTERY"> <templateId root="12.02.840.1.136152.22.4.1" /> <id nullFlavor="NA" /> <code codeSystem="local" code="419117" displayName="Creatinine, Serum" /> < statusCode code="completed" /> <component> <observation moodCode= "EVN" classCode="OBS"> <templateId root="12.02.840.1.083337.10.22.4.2 " /> <id nullFlavor="NA" /> <code codeSystem="local" code= "959510" displayName="Creatinine, Serum" /> <statusCode code="completed " /> <effectiveTime value="025177229740" /> <value unit="" xsi :type="PQ" value="1.3" /> <referenceRange> <observationRange > <text>0.6-1.4</text> </observationRange> </ referenceRange> </observation> </component> </organizer> </entry > <entry> <organizer moodCode="EVN" classCode="BATTERY"> <templateId root="16.840.1.071198.22.4.1" /> <id nullFlavor="NA" /> <code codeSystem="local" code="357880" displayName="GFR, Estimated" /> < statusCode code="completed" /> <component> <observation moodCode= "EVN" classCode="OBS"> <templateId root="12.02.840.1.290132.08.05.22.4.2 " /> <id nullFlavor="NA" /> <code codeSystem="local" code= "843786" displayName="eGFR" /> <statusCode code="completed" /> <effectiveTime value="169001928634" /> <value unit="ML/MIN" xsi:type= "PQ" value="59" /> <referenceRange> <observationRange> <text>NRG</text> </observationRange> </ referenceRange> </observation> </component> </organizer> </entry > <entry> <organizer moodCode="EVN" classCode="BATTERY"> <templateId root="2.16.840.1.424278.10..4.1" /> <id nullFlavor="NA" /> <code codeSystem="local" code="554522" displayName="CBC With Platelet and Differential " /> <statusCode code="completed" /> <component> <observation moodCode="EVN" classCode="OBS"> <templateId root= "216.840.1.850962.10...4.2" /> <id nullFlavor="NA" /> < code codeSystem="local" code="826077" displayName="Hematocrit (HCT)" /> <statusCode code="completed" /> <effectiveTime value="064486426703" / > <value unit="%" xsi:type="PQ" value="43.3" /> < referenceRange> <observationRange> <text>42.0-52.0</text > </observationRange> </referenceRange> </observation > </component> <component> <observation moodCode="EVN" classCode="OBS"> <templateId root="216.840.1.491744.10..22.4.2" /> <id nullFlavor="NA" /> <code codeSystem="local" code="151202" displayName="Hemoglobin (Hgb)" /> <statusCode code="completed" /> <effectiveTime value="773951492237" /> <value unit="G/DL" xsi:type ="PQ" value="14.5" /> <referenceRange> <observationRange> <text>14.0-18.0</text> </observationRange> </ referenceRange> </observation> </component> <component> <observation moodCode="EVN" classCode="OBS"> <templateId root= "12.02.840.1.670048.10.22.4.2" /> <id nullFlavor="NA" /> < code codeSystem="local" code="417793" displayName="WBC" /> <statusCode code="completed" /> <effectiveTime value="280279229736" /> < value unit="K/UL" xsi:type="PQ" value="5.81" /> <referenceRange> <observationRange> <text>4.8-10.8</text> </ observationRange> </referenceRange> </observation> </ component> </organizer> </entry> <entry> <organizer moodCode="EVN" classCode="BATTERY"> <templateId root="16.840.1.533184.10.22.4.1" /> <id nullFlavor="NA" /> <code codeSystem="local" code="938978" displayName="Potassium (K), Serum" /> <statusCode code="completed" /> <component> <observation moodCode="EVN" classCode="OBS"> < templateId root="12.02.840.1.593191.10.2022.4.2" /> <id nullFlavor="NA " /> <code codeSystem="local" code="394833" displayName="Potassium (K) , Serum" /> <statusCode code="completed" /> <effectiveTime value="899504537697" /> <value unit="MEQ/L" xsi:type="PQ" value="4.0" / > <referenceRange> <observationRange> <text>3.2 -5.2</text> </observationRange> </referenceRange> </ observation> </component> </organizer> </entry> <entry> <organizer moodCode="EVN" classCode="BATTERY"> <templateId root= "216.840.1.540613.10..22.4.1" /> <id nullFlavor="NA" /> <code codeSystem="local" code="460823" displayName="Vitamin D, 25-Hydroxy" /> < statusCode code="completed" /> <component> <observation moodCode= "EVN" classCode="OBS"> <templateId root="216.840.1.420469.10...4.2 " /> <id nullFlavor="NA" /> <code codeSystem="local" code= "628164" displayName="Vitamin D,25-Hydroxy" /> <statusCode code= "completed" /> <effectiveTime value="688887277138" /> <value unit="NG/ML" xsi:type="PQ" value="65.52" /> <referenceRange> <observationRange> <text>25-80</text> </ observationRange> </referenceRange> </observation> </ component> </organizer> </entry> <entry> <organizer moodCode="EVN" classCode="BATTERY"> <templateId root="216.840.1.451310.10..4.1" /> <id nullFlavor="NA" /> <code codeSystem="local" code="861557" displayName="[place] HI/CR ratio" /> <statusCode code="completed" /> <component> <observation moodCode="EVN" classCode="OBS"> < templateId root="216.840.1.119907.10..4.2" /> <id nullFlavor="NA " /> <code codeSystem="local" code="182410" displayName="Creatinine, Random U" /> <statusCode code="completed" /> <effectiveTime value="209171993978" /> <value unit="MG/DL" xsi:type="PQ" value="141.0 " /> <referenceRange> <observationRange> <text> NRG</text> </observationRange> </referenceRange> </ observation> </component> <component> <observation moodCode= "EVN" classCode="OBS"> <templateId root="216.840.1.625320...4.2 " /> <id nullFlavor="NA" /> <code codeSystem="local" code= "343476" displayName="Protein,Total, Rdm U" /> <statusCode code= "completed" /> <effectiveTime value="704676201244" /> <value unit="MG/DL" xsi:type="PQ" value="15.0" /> <referenceRange> <observationRange> <text>NRG</text> </observationRange> </referenceRange> </observation> </component> < component> <observation moodCode="EVN" classCode="OBS"> < templateId root="16.840.1.472978.10...4.2" /> <id nullFlavor="NA " /> <code codeSystem="local" code="536391" displayName="Protein/Creat Ratio" /> <statusCode code="completed" /> <effectiveTime value ="546448253965" /> <value unit="" xsi:type="PQ" value="0.11" /> <referenceRange> <observationRange> <text>NRG</text> </observationRange> </referenceRange> </observation > </component> </organizer> </entry> <entry> <organizer moodCode= "EVN" classCode="BATTERY"> <templateId root="216.840.1.488672.10.20.22.4.1 " /> <id nullFlavor="NA" /> <code codeSystem="local" code="463878" displayName="CT ANGIOGR ABD W/O&amp;W" /> <statusCode code= "completed" /> <component> <observation moodCode="EVN" classCode= "OBS"> <templateId root="2.16.840.1.990735.10..22.4.2" /> < id nullFlavor="NA" /> <code codeSystem="local" code="672201" displayName="Misc. Result, see notes for description" /> <statusCode code="completed" /> <effectiveTime value="493788601634" /> < value unit="" xsi:type="PQ" value="See Attached Document" /> < referenceRange> <observationRange> <text>NRG</text> </observationRange> </referenceRange> </observation> </component> <component> <observation moodCode="EVN" classCode= "OBS"> <templateId root="216.840.1.136507.10..22.4.2" /> < id nullFlavor="NA" /> <code codeSystem="local" code="973833" displayName="CT ANGIOGR ABD W/O&W" /> <statusCode code="completed" /> <effectiveTime value="363873780020" /> <value unit="" xsi: type="PQ" value="See Attached Document" /> <referenceRange> <observationRange> <text>NRG</text> </observationRange> </referenceRange> </observation> </component> </ organizer> </entry> <entry> <organizer moodCode="EVN" classCode="BATTERY"> <templateId root="216.840.1.536006.10.20.22.4.1" /> <id nullFlavor= "NA" /> <code codeSystem="local" code="34748-3" displayName="Complete blood count (CBC) with automated white blood cell (WBC) differential" /> < statusCode code="completed" /> <component> <observation moodCode= "EVN" classCode="OBS"> <templateId root="216.840.1.606207.10.20.22.4.2 " /> <id nullFlavor="NA" /> <code codeSystem="local" code= "6690-2" displayName="Blood leukocytes automated count (number/volume)" /> <statusCode code="completed" /> <effectiveTime value="020582118001 " /> <value unit="10*3/uL" xsi:type="PQ" value="6.3" /> < referenceRange> <observationRange> <text>4.3-11.0</text > </observationRange> </referenceRange> </observation > </component> <component> <observation moodCode="EVN" classCode="OBS"> <templateId root="16.840.1.780844.10.20.22.4.2" /> <id nullFlavor="NA" /> <code codeSystem="local" code="789-8" displayName="Blood erythrocytes automated count (number/volume)" /> < statusCode code="completed" /> <effectiveTime value="009150778252" /> <value unit="10*6/uL" xsi:type="PQ" value="4.70" /> < referenceRange> <observationRange> <text>4.35-5.85</text > </observationRange> </referenceRange> </observation > </component> <component> <observation moodCode="EVN" classCode="OBS"> <templateId root="216.840.1.808980.10.20.22.4.2" /> <id nullFlavor="NA" /> <code codeSystem="local" code="12012-9 " displayName="Venous blood hemoglobin measurement (mass/volume)" /> < statusCode code="completed" /> <effectiveTime value="639516312932" /> <value unit="g/dL" xsi:type="PQ" value="14.0" /> < referenceRange> <observationRange> <text>13.3-17.7</text > </observationRange> </referenceRange> </observation > </component> <component> <observation moodCode="EVN" classCode="OBS"> <templateId root="12.02.840.1.256072.10.20.22.4.2" /> <id nullFlavor="NA" /> <code codeSystem="local" code="48605-8 " displayName="Blood hematocrit (volume fraction)" /> <statusCode code= "completed" /> <effectiveTime value="881594246874" /> <value unit="%" xsi:type="PQ" value="41" /> <referenceRange> < observationRange> <text>40-54</text> </observationRange > </referenceRange> </observation> </component> < component> <observation moodCode="EVN" classCode="OBS"> < templateId root="16.840.1.002293.10.20.22.4.2" /> <id nullFlavor="NA " /> <code codeSystem="local" code="787-2" displayName="Automated erythrocyte mean corpuscular volume" /> <statusCode code="completed" / > <effectiveTime value="586421966328" /> <value unit="[foz_us] " xsi:type="PQ" value="87" /> <referenceRange> < observationRange> <text>80-99</text> </observationRange > </referenceRange> </observation> </component> < component> <observation moodCode="EVN" classCode="OBS"> < templateId root="2.16.840.1.539833.10.20.22.4.2" /> <id nullFlavor="NA " /> <code codeSystem="local" code="785-6" displayName="Automated erythrocyte mean corpuscular hemoglobin (mass per erythrocyte)" /> < statusCode code="completed" /> <effectiveTime value="608463385206" /> <value unit="pg" xsi:type="PQ" value="30" /> <referenceRange> <observationRange> <text>25-34</text> </ observationRange> </referenceRange> </observation> </ component> <component> <observation moodCode="EVN" classCode="OBS"> <templateId root="2.16.840.1.384218.10.20.22.4.2" /> <id nullFlavor="NA" /> <code codeSystem="local" code="786-4" displayName= "Automated erythrocyte mean corpuscular hemoglobin concentration measurement ( mass/volume)" /> <statusCode code="completed" /> < effectiveTime value="880217181791" /> <value unit="g/dL" xsi:type="PQ" value="34" /> <referenceRange> <observationRange> <text>32-36</text> </observationRange> </referenceRange > </observation> </component> <component> <observation moodCode="EVN" classCode="OBS"> <templateId root= "2.16.840.1.400394.10.20.22.4.2" /> <id nullFlavor="NA" /> < code codeSystem="local" code="788-0" displayName="Automated erythrocyte distribution width ratio" /> <statusCode code="completed" /> < effectiveTime value="712520087455" /> <value unit="%" xsi:type="PQ " value="14.9" /> <interpretationCode codeSystem="local" code="" /> <referenceRange> <observationRange> <text>10.0- 14.5</text> </observationRange> </referenceRange> </ observation> </component> <component> <observation moodCode= "EVN" classCode="OBS"> <templateId root="2.16.840.1.646373.10..22.4.2 " /> <id nullFlavor="NA" /> <code codeSystem="local" code="777 -3" displayName="Automated blood platelet count (count/volume)" /> < statusCode code="completed" /> <effectiveTime value="107417962020" /> <value unit="10*3/uL" xsi:type="PQ" value="201" /> < referenceRange> <observationRange> <text>130-400</text> </observationRange> </referenceRange> </observation > </component> <component> <observation moodCode="EVN" classCode="OBS"> <templateId root="216.840.1.590750.10.20.22.4.2" /> <id nullFlavor="NA" /> <code codeSystem="local" code="41471-2 " displayName="Automated blood platelet mean volume measurement" /> < statusCode code="completed" /> <effectiveTime value="" /> <value unit="[foz_us]" xsi:type="PQ" value="10.1" /> < referenceRange> <observationRange> <text>7.4-10.4</text > </observationRange> </referenceRange> </observation > </component> <component> <observation moodCode="EVN" classCode="OBS"> <templateId root="2.16.840.1.364010.10.20.22.4.2" /> <id nullFlavor="NA" /> <code codeSystem="local" code="770-8" displayName="Automated blood neutrophils/100 leukocytes" /> < statusCode code="completed" /> <effectiveTime value="149356040966" /> <value unit="%" xsi:type="PQ" value="61" /> < referenceRange> <observationRange> <text>42-75</text> </observationRange> </referenceRange> </observation> </component> <component> <observation moodCode="EVN" classCode= "OBS"> <templateId root="216.840.1.265891.10..22.4.2" /> < id nullFlavor="NA" /> <code codeSystem="local" code="736-9" displayName ="Automated blood lymphocytes/100 leukocytes" /> <statusCode code= "completed" /> <effectiveTime value="462591705865" /> <value unit="%" xsi:type="PQ" value="29" /> <referenceRange> < observationRange> <text>12-44</text> </observationRange > </referenceRange> </observation> </component> < component> <observation moodCode="EVN" classCode="OBS"> < templateId root="2.16.840.1.702585.10.20.22.4.2" /> <id nullFlavor="NA " /> <code codeSystem="local" code="07684-3" displayName="Blood monocytes/100 leukocytes" /> <statusCode code="completed" /> < effectiveTime value="053920215288" /> <value unit="%" xsi:type="PQ " value="7" /> <referenceRange> <observationRange> <text>0-12</text> </observationRange> </referenceRange > </observation> </component> <component> <observation moodCode="EVN" classCode="OBS"> <templateId root= "2.16.840.1.461226.10.20.22.4.2" /> <id nullFlavor="NA" /> < code codeSystem="local" code="713-8" displayName="Automated blood eosinophils/ 100 leukocytes" /> <statusCode code="completed" /> < effectiveTime value="283126111099" /> <value unit="%" xsi:type="PQ " value="3" /> <referenceRange> <observationRange> <text>0-10</text> </observationRange> </referenceRange > </observation> </component> <component> <observation moodCode="EVN" classCode="OBS"> <templateId root= "2.16.840.1.805200.10.20.22.4.2" /> <id nullFlavor="NA" /> < code codeSystem="local" code="706-2" displayName="Automated blood basophils/100 leukocytes" /> <statusCode code="completed" /> <effectiveTime value="589134475014" /> <value unit="%" xsi:type="PQ" value="0" /> <referenceRange> <observationRange> <text>0-10 </text> </observationRange> </referenceRange> </ observation> </component> <component> <observation moodCode= "EVN" classCode="OBS"> <templateId root="840.1.464094.10.20.22.4.2 " /> <id nullFlavor="NA" /> <code codeSystem="local" code="751 -8" displayName="Blood neutrophils automated count (number/volume)" /> <statusCode code="completed" /> <effectiveTime value="118319639800" /> <value unit="10*3" xsi:type="PQ" value="3.8" /> < referenceRange> <observationRange> <text>1.8-7.8</text> </observationRange> </referenceRange> </observation > </component> <component> <observation moodCode="EVN" classCode="OBS"> <templateId root="216.840.1.803035.10.20.22.4.2" /> <id nullFlavor="NA" /> <code codeSystem="local" code="731-0" displayName="Blood lymphocytes automated count (number/volume)" /> < statusCode code="completed" /> <effectiveTime value="415924403863" /> <value unit="10*3" xsi:type="PQ" value="1.8" /> < referenceRange> <observationRange> <text>1.0-4.0</text> </observationRange> </referenceRange> </observation > </component> <component> <observation moodCode="EVN" classCode="OBS"> <templateId root="16.840.1.178985.10.20.22.4.2" /> <id nullFlavor="NA" /> <code codeSystem="local" code="742-7" displayName="Blood monocytes automated count (number/volume)" /> < statusCode code="completed" /> <effectiveTime value="389069663546" /> <value unit="10*3" xsi:type="PQ" value="0.5" /> < referenceRange> <observationRange> <text>0.0-1.0</text> </observationRange> </referenceRange> </observation > </component> <component> <observation moodCode="EVN" classCode="OBS"> <templateId root="216.840.1.722935.10.20.22.4.2" /> <id nullFlavor="NA" /> <code codeSystem="local" code="711-2" displayName="Automated eosinophil count" /> <statusCode code="completed " /> <effectiveTime value="956549126068" /> <value unit="10*3/ uL" xsi:type="PQ" value="0.2" /> <referenceRange> < observationRange> <text>0.0-0.3</text> </ observationRange> </referenceRange> </observation> </ component> <component> <observation moodCode="EVN" classCode="OBS"> <templateId root="16.840.1.873593.10...4.2" /> <id nullFlavor="NA" /> <code codeSystem="local" code="704-7" displayName= "Automated blood basophil count (count/volume)" /> <statusCode code= "completed" /> <effectiveTime value="397698843400" /> <value unit="10*3/uL" xsi:type="PQ" value="0.0" /> <referenceRange> <observationRange> <text>0.0-0.1</text> </ observationRange> </referenceRange> </observation> </ component> </organizer> </entry> <entry> <organizer moodCode="EVN" classCode="BATTERY"> <templateId root="216.840.1.328057.10.20.22.4.1" /> <id nullFlavor="NA" /> <code codeSystem="local" code="59640-2" displayName="Comprehensive metabolic panel" /> <statusCode code="completed " /> <component> <observation moodCode="EVN" classCode="OBS"> <templateId root="216.840.1.940122.10.20.22.4.2" /> <id nullFlavor ="NA" /> <code codeSystem="local" code="2951-2" displayName="Serum or plasma sodium measurement (moles/volume)" /> <statusCode code= "completed" /> <effectiveTime value="984763452608" /> <value unit="mmol/L" xsi:type="PQ" value="140" /> <referenceRange> <observationRange> <text>135-145</text> </ observationRange> </referenceRange> </observation> </ component> <component> <observation moodCode="EVN" classCode="OBS"> <templateId root="16.840.1.783856.10..22.4.2" /> <id nullFlavor="NA" /> <code codeSystem="local" code="2823-3" displayName= "Serum or plasma potassium measurement (moles/volume)" /> <statusCode code="completed" /> <effectiveTime value="110523410235" /> < value unit="mmol/L" xsi:type="PQ" value="3.9" /> <referenceRange> <observationRange> <text>3.6-5.0</text> </ observationRange> </referenceRange> </observation> </ component> <component> <observation moodCode="EVN" classCode="OBS"> <templateId root="16.840.1.714433.10.20.22.4.2" /> <id nullFlavor="NA" /> <code codeSystem="local" code="2075-0" displayName= "Serum or plasma chloride measurement (moles/volume)" /> <statusCode code="completed" /> <effectiveTime value="831490810038" /> < value unit="mmol/L" xsi:type="PQ" value="107" /> <referenceRange> <observationRange> <text>98-107</text> </ observationRange> </referenceRange> </observation> </ component> <component> <observation moodCode="EVN" classCode="OBS"> <templateId root="2.16.840.1.728498.10.20.22.4.2" /> <id nullFlavor="NA" /> <code codeSystem="local" code="2028-06" displayName= "Carbon dioxide" /> <statusCode code="completed" /> < effectiveTime value="335664492657" /> <value unit="mmol/L" xsi:type="PQ " value="23" /> <referenceRange> <observationRange> <text>21-32</text> </observationRange> </ referenceRange> </observation> </component> <component> <observation moodCode="EVN" classCode="OBS"> <templateId root= "216.840.1.746305.10.20.22.4.2" /> <id nullFlavor="NA" /> < code codeSystem="local" code="32928-4" displayName="Serum or plasma anion gap determination (moles/volume)" /> <statusCode code="completed" /> <effectiveTime value="780857766389" /> <value unit="mmol/L" xsi: type="PQ" value="10" /> <referenceRange> <observationRange> <text>5-14</text> </observationRange> </ referenceRange> </observation> </component> <component> <observation moodCode="EVN" classCode="OBS"> <templateId root= "12.02.840.1.026783.10.20.22.4.2" /> <id nullFlavor="NA" /> < code codeSystem="local" code="3094-0" displayName="Serum or plasma urea nitrogen measurement (mass/volume)" /> <statusCode code="completed" /> <effectiveTime value="233154228061" /> <value unit="mg/dL" xsi:type="PQ" value="18" /> <referenceRange> < observationRange> <text>7-18</text> </observationRange> </referenceRange> </observation> </component> < component> <observation moodCode="EVN" classCode="OBS"> < templateId root="216.840.1.319596.10.20.22.4.2" /> <id nullFlavor="NA " /> <code codeSystem="local" code="2160-0" displayName="Serum or plasma creatinine measurement (mass/volume)" /> <statusCode code= "completed" /> <effectiveTime value="005828749946" /> <value unit="mg/dL" xsi:type="PQ" value="1.26" /> <referenceRange> <observationRange> <text>0.60-1.30</text> </ observationRange> </referenceRange> </observation> </ component> <component> <observation moodCode="EVN" classCode="OBS"> <templateId root="16.840.1.181701.10.20.22.4.2" /> <id nullFlavor="NA" /> <code codeSystem="local" code="3097-3" displayName= "Serum or plasma urea nitrogen/creatinine mass ratio" /> <statusCode code="completed" /> <effectiveTime value="205334173511" /> < value unit="" xsi:type="PQ" value="14" /> <referenceRange> < observationRange> <text>NRG</text> </observationRange> </referenceRange> </observation> </component> < component> <observation moodCode="EVN" classCode="OBS"> < templateId root="2.16.840.1.602434.10.20.22.4.2" /> <id nullFlavor="NA " /> <code codeSystem="local" code="03343-0" displayName="Serum or plasma creatinine measurement with calculation of estimated glomerular filtration rate" /> <statusCode code="completed" /> < effectiveTime value="881175495735" /> <value unit="" xsi:type="PQ" value="55" /> <referenceRange> <observationRange> <text>NRG</text> </observationRange> </referenceRange> </observation> </component> <component> <observation moodCode="EVN" classCode="OBS"> <templateId root= "216.840.1.020618.10..22.4.2" /> <id nullFlavor="NA" /> < code codeSystem="local" code="2345-7" displayName="Serum or plasma glucose measurement (mass/volume)" /> <statusCode code="completed" /> <effectiveTime value="474179059240" /> <value unit="mg/dL" xsi:type="PQ " value="100" /> <referenceRange> <observationRange> <text>70-105</text> </observationRange> </ referenceRange> </observation> </component> <component> <observation moodCode="EVN" classCode="OBS"> <templateId root= "2.16.840.1.966779.10..22.4.2" /> <id nullFlavor="NA" /> < code codeSystem="local" code="05798-2" displayName="Serum or plasma calcium measurement (mass/volume)" /> <statusCode code="completed" /> <effectiveTime value="484088019463" /> <value unit="mg/dL" xsi:type="PQ " value="9.0" /> <referenceRange> <observationRange> <text>8.5-10.1</text> </observationRange> </ referenceRange> </observation> </component> <component> <observation moodCode="EVN" classCode="OBS"> <templateId root= "216.840.1.962183.10.20.22.4.2" /> <id nullFlavor="NA" /> < code codeSystem="local" code="1974-11" displayName="Serum or plasma total bilirubin measurement (mass/volume)" /> <statusCode code="completed" / > <effectiveTime value="760445936296" /> <value unit="mg/dL" xsi:type="PQ" value="0.8" /> <referenceRange> < observationRange> <text>0.1-1.0</text> </ observationRange> </referenceRange> </observation> </ component> <component> <observation moodCode="EVN" classCode="OBS"> <templateId root="16.840.1.685195.10.20.22.4.2" /> <id nullFlavor="NA" /> <code codeSystem="local" code="6768-" displayName= "Serum or plasma alkaline phosphatase measurement (enzymatic activity/volume)" / > <statusCode code="completed" /> <effectiveTime value= "317978640274" /> <value unit="U/L" xsi:type="PQ" value="82" /> <referenceRange> <observationRange> <text>40-136</ text> </observationRange> </referenceRange> </ observation> </component> <component> <observation moodCode= "EVN" classCode="OBS"> <templateId root="840.1.515506.10.20.22.4.2 " /> <id nullFlavor="NA" /> <code codeSystem="local" code= "1920-05" displayName="Serum or plasma aspartate aminotransferase measurement ( enzymatic activity/volume)" /> <statusCode code="completed" /> <effectiveTime value="586388406832" /> <value unit="U/L" xsi:type="PQ " value="22" /> <referenceRange> <observationRange> <text>5-34</text> </observationRange> </referenceRange > </observation> </component> <component> <observation moodCode="EVN" classCode="OBS"> <templateId root= "16.840.1.274798.10.20.22.4.2" /> <id nullFlavor="NA" /> < code codeSystem="local" code="1742" displayName="Serum or plasma alanine aminotransferase measurement (enzymatic activity/volume)" /> < statusCode code="completed" /> <effectiveTime value="968058740140" /> <value unit="U/L" xsi:type="PQ" value="22" /> <referenceRange > <observationRange> <text>0-55</text> </ observationRange> </referenceRange> </observation> </ component> <component> <observation moodCode="EVN" classCode="OBS"> <templateId root="16.840.1.138562.10.20.22.4.2" /> <id nullFlavor="NA" /> <code codeSystem="local" code="2885-2" displayName= "Serum or plasma protein measurement (mass/volume)" /> <statusCode code ="completed" /> <effectiveTime value="165000111487" /> <value unit="g/dL" xsi:type="PQ" value="6.9" /> <referenceRange> < observationRange> <text>6.4-8.2</text> </ observationRange> </referenceRange> </observation> </ component> <component> <observation moodCode="EVN" classCode="OBS"> <templateId root="216.840.1.510967.10.20.22.4.2" /> <id nullFlavor="NA" /> <code codeSystem="local" code="1751-7" displayName= "Serum or plasma albumin measurement (mass/volume)" /> <statusCode code ="completed" /> <effectiveTime value="151547321574" /> <value unit="g/dL" xsi:type="PQ" value="3.9" /> <referenceRange> < observationRange> <text>3.2-4.5</text> </ observationRange> </referenceRange> </observation> </ component> </organizer> </entry> <entry> <organizer moodCode="EVN" classCode="BATTERY"> <templateId root="16.840.1.993040.10..22.4.1" /> <id nullFlavor="NA" /> <code codeSystem="local" code="TSH" displayName ="THYROID STIMULATING HORMONE" /> <statusCode code="completed" /> < component> <observation moodCode="EVN" classCode="OBS"> < templateId root="12.02.840.1.517177.10.20.22.4.2" /> <id nullFlavor="NA " /> <code codeSystem="local" code="TSH" displayName="THYROID STIMULATING HORMONE" /> <statusCode code="completed" /> < effectiveTime value="245005871301" /> <value unit="u[iU]/mL" xsi:type= "PQ" value="1.80" /> <referenceRange> <observationRange> <text>0.35-4.94</text> </observationRange> </ referenceRange> </observation> </component> </organizer> </entry > <entry> <organizer moodCode="EVN" classCode="BATTERY"> <templateId root="216.840.1.484982.10..22.4.1" /> <id nullFlavor="NA" /> <code codeSystem="local" code="2986-8" displayName="Serum or plasma testosterone measurement (mass/volume)" /> <statusCode code="completed" /> < component> <observation moodCode="EVN" classCode="OBS"> < templateId root="216.840.1.544721.10..4.2" /> <id nullFlavor="NA " /> <code codeSystem="local" code="49172-8" displayName="Testosterone [mass or moles/volume] in serum or plasma" /> <statusCode code= "completed" /> <effectiveTime value="623011857878" /> <value unit="%" xsi:type="PQ" value="196" /> <interpretationCode codeSystem="local" code="" /> <referenceRange> < observationRange> <text>764-855</text> </ observationRange> </referenceRange> </observation> </ component> </organizer> </entry> <entry> <organizer moodCode="EVN" classCode="BATTERY"> <templateId root="216.840.1.251749.10..22.4.1" /> <id nullFlavor="NA" /> <code codeSystem="local" code="CVD5290" displayName="[id number]" /> <statusCode code="completed" /> <component> <observation moodCode="EVN" classCode="OBS"> <templateId root= "216.840.1.170382.10..22.4.2" /> <id nullFlavor="NA" /> < code codeSystem="local" code="3094-0" displayName="Serum or plasma urea nitrogen measurement (mass/volume)" /> <statusCode code="completed" /> <effectiveTime value="558844948617" /> <value unit="mg/dL" xsi:type="PQ" value="18" /> <referenceRange> < observationRange> <text>7-18</text> </observationRange> </referenceRange> </observation> </component> < component> <observation moodCode="EVN" classCode="OBS"> < templateId root="216.840.1.991349.10..22.4.2" /> <id nullFlavor="NA " /> <code codeSystem="local" code="2160-0" displayName="Serum or plasma creatinine measurement (mass/volume)" /> <statusCode code= "completed" /> <effectiveTime value="221627208138" /> <value unit="mg/dL" xsi:type="PQ" value="1.21" /> <referenceRange> <observationRange> <text>0.60-1.30</text> </ observationRange> </referenceRange> </observation> </ component> <component> <observation moodCode="EVN" classCode="OBS"> <templateId root="12.02.840.1.906521.10..22.4.2" /> <id nullFlavor="NA" /> <code codeSystem="local" code="3097-3" displayName= "Serum or plasma urea nitrogen/creatinine mass ratio" /> <statusCode code="completed" /> <effectiveTime value="815465201142" /> < value unit="" xsi:type="PQ" value="15" /> <referenceRange> < observationRange> <text>NRG</text> </observationRange> </referenceRange> </observation> </component> < component> <observation moodCode="EVN" classCode="OBS"> < templateId root="2.16.840.1.203313.10..22.4.2" /> <id nullFlavor="NA " /> <code codeSystem="local" code="95662-9" displayName="Serum or plasma creatinine measurement with calculation of estimated glomerular filtration rate" /> <statusCode code="completed" /> < effectiveTime value="158600115347" /> <value unit="" xsi:type="PQ" value="58" /> <referenceRange> <observationRange> <text>NRG</text> </observationRange> </referenceRange> </observation> </component> </organizer> </entry> <entry> < organizer moodCode="EVN" classCode="BATTERY"> <templateId root= "2.16.840.1.999632.10..22.4.1" /> <id nullFlavor="NA" /> <code codeSystem="local" code="PLP6169" displayName="[id number]" /> <statusCode code ="completed" /> <component> <observation moodCode="EVN" classCode= "OBS"> <templateId root="2.16.840.1.289111.10..22.4.2" /> < id nullFlavor="NA" /> <code codeSystem="local" code="3094-0" displayName="Serum or plasma urea nitrogen measurement (mass/volume)" /> <statusCode code="completed" /> <effectiveTime value="393571427819" /> <value unit="mg/dL" xsi:type="PQ" value="15" /> < referenceRange> <observationRange> <text>7-18</text> </observationRange> </referenceRange> </observation> </component> <component> <observation moodCode="EVN" classCode= "OBS"> <templateId root="2.16.840.1.435645.10.20.22.4.2" /> < id nullFlavor="NA" /> <code codeSystem="local" code="2160-0" displayName="Serum or plasma creatinine measurement (mass/volume)" /> < statusCode code="completed" /> <effectiveTime value="133576814340" /> <value unit="mg/dL" xsi:type="PQ" value="1.23" /> < referenceRange> <observationRange> <text>0.60-1.30</text > </observationRange> </referenceRange> </observation > </component> <component> <observation moodCode="EVN" classCode="OBS"> <templateId root="2.16.840.1.703702.10...4.2" /> <id nullFlavor="NA" /> <code codeSystem="local" code="3097-3" displayName="Serum or plasma urea nitrogen/creatinine mass ratio" /> < statusCode code="completed" /> <effectiveTime value="432051098391" /> <value unit="" xsi:type="PQ" value="12" /> <referenceRange> <observationRange> <text>NRG</text> </ observationRange> </referenceRange> </observation> </ component> <component> <observation moodCode="EVN" classCode="OBS"> <templateId root="2.16.840.1.779683.10.20.22.4.2" /> <id nullFlavor="NA" /> <code codeSystem="local" code="96768-8" displayName= "Serum or plasma creatinine measurement with calculation of estimated glomerular filtration rate" /> <statusCode code="completed" /> <effectiveTime value="206116999134" /> <value unit="" xsi:type="PQ" value="57" /> <referenceRange> <observationRange> <text>NRG</text> </observationRange> </referenceRange> </observation> </component> </organizer> </entry> <entry> < organizer moodCode="EVN" classCode="BATTERY"> <templateId root= "840.1.178202.10.4.1" /> <id nullFlavor="NA" /> <code codeSystem="local" code="CBCD" displayName="CBC W/DIFF" /> <statusCode code ="completed" /> <component> <observation moodCode="EVN" classCode= "OBS"> <templateId root="12.02.840.1.216892.08.05.22.4.2" /> < id nullFlavor="NA" /> <code codeSystem="local" code="BA#" displayName= "BASOPHIL #" /> <statusCode code="completed" /> < effectiveTime value="248240331895" /> <value unit="k/cumm" xsi:type="PQ " value="0.0" /> <referenceRange> <observationRange> <text>0.0-0.2</text> </observationRange> </ referenceRange> </observation> </component> <component> <observation moodCode="EVN" classCode="OBS"> <templateId root= "12.02.840.1.704569.1022.4.2" /> <id nullFlavor="NA" /> < code codeSystem="local" code="BA%" displayName="BASOPHIL %" /> <statusCode code="completed" /> <effectiveTime value="947015123022" /> <value unit="%" xsi:type="PQ" value="0.3" /> < referenceRange> <observationRange> <text>0-1</text> </observationRange> </referenceRange> </observation> </component> <component> <observation moodCode="EVN" classCode= "OBS"> <templateId root="12.02.840.1.866204.10.20.22.4.2" /> < id nullFlavor="NA" /> <code codeSystem="local" code="EO#" displayName= "EOSINOPHIL #" /> <statusCode code="completed" /> < effectiveTime value="451972588426" /> <value unit="k/cumm" xsi:type="PQ " value="0.1" /> <referenceRange> <observationRange> <text>0.1-0.5</text> </observationRange> </ referenceRange> </observation> </component> <component> <observation moodCode="EVN" classCode="OBS"> <templateId root= "12.02.840.1.315995.10..4.2" /> <id nullFlavor="NA" /> < code codeSystem="local" code="EO%" displayName="EOSINOPHIL %" /> <statusCode code="completed" /> <effectiveTime value="456637391519" /> <value unit="%" xsi:type="PQ" value="1.9" /> < interpretationCode codeSystem="local" code="*" /> <referenceRange> <observationRange> <text>2-4</text> </ observationRange> </referenceRange> </observation> </ component> <component> <observation moodCode="EVN" classCode="OBS"> <templateId root="12.02.840.1.594174.10..22.4.2" /> <id nullFlavor="NA" /> <code codeSystem="local" code="GR#" displayName= "GRANULOCYTE #" /> <statusCode code="completed" /> < effectiveTime value="077723915776" /> <value unit="k/cumm" xsi:type="PQ " value="4.0" /> <referenceRange> <observationRange> <text>2.0-9.0</text> </observationRange> </ referenceRange> </observation> </component> <component> <observation moodCode="EVN" classCode="OBS"> <templateId root= "2.16.840.1.006464.10..22.4.2" /> <id nullFlavor="NA" /> < code codeSystem="local" code="GR%" displayName="GRANULOCYTE %" /> <statusCode code="completed" /> <effectiveTime value="088848196074 " /> <value unit="%" xsi:type="PQ" value="59.1" /> < referenceRange> <observationRange> <text>50-75</text> </observationRange> </referenceRange> </observation> </component> <component> <observation moodCode="EVN" classCode= "OBS"> <templateId root="2.16.840.1.139124.10..22.4.2" /> < id nullFlavor="NA" /> <code codeSystem="local" code="LY#" displayName= "LYMPHOCYTE #" /> <statusCode code="completed" /> < effectiveTime value="287040910865" /> <value unit="k/cumm" xsi:type="PQ " value="2.1" /> <referenceRange> <observationRange> <text>1.0-4.0</text> </observationRange> </ referenceRange> </observation> </component> <component> <observation moodCode="EVN" classCode="OBS"> <templateId root= "216.840.1.529447.10.20.22.4.2" /> <id nullFlavor="NA" /> < code codeSystem="local" code="LY%" displayName="LYMPHOCYTE %" /> <statusCode code="completed" /> <effectiveTime value="431104692863" /> <value unit="%" xsi:type="PQ" value="30.7" /> < interpretationCode codeSystem="local" code="*" /> <referenceRange> <observationRange> <text>20-30</text> </ observationRange> </referenceRange> </observation> </ component> <component> <observation moodCode="EVN" classCode="OBS"> <templateId root="12.02.840.1.189305.10.22.4.2" /> <id nullFlavor="NA" /> <code codeSystem="local" code="MCH" displayName= "MEAN CELL HGB" /> <statusCode code="completed" /> < effectiveTime value="" /> <value unit="pg" xsi:type="PQ" value="30.7" /> <referenceRange> <observationRange> <text>27.0-33.0</text> </observationRange> </ referenceRange> </observation> </component> <component> <observation moodCode="EVN" classCode="OBS"> <templateId root= "12.02.840.1.341672.10.20.22.4.2" /> <id nullFlavor="NA" /> < code codeSystem="local" code="MCHC" displayName="MEAN CELL HGB CONCENTRATION" / > <statusCode code="completed" /> <effectiveTime value= "606849516380" /> <value unit="g/dL" xsi:type="PQ" value="34.6" /> <referenceRange> <observationRange> <text>32.0- 37.0</text> </observationRange> </referenceRange> </ observation> </component> <component> <observation moodCode= "EVN" classCode="OBS"> <templateId root="12.02.840.1.564043.10.20.22.4.2 " /> <id nullFlavor="NA" /> <code codeSystem="local" code="MCV " displayName="MEAN CELL VOLUME" /> <statusCode code="completed" /> <effectiveTime value="787970725927" /> <value unit="fl" xsi:type ="PQ" value="88.8" /> <referenceRange> <observationRange> <text>80.0-100.0</text> </observationRange> </ referenceRange> </observation> </component> <component> <observation moodCode="EVN" classCode="OBS"> <templateId root= "840.1.294150...4.2" /> <id nullFlavor="NA" /> < code codeSystem="local" code="MO#" displayName="MONOCYTE #" /> < statusCode code="completed" /> <effectiveTime value="234363156001" /> <value unit="k/cumm" xsi:type="PQ" value="0.5" /> < referenceRange> <observationRange> <text>0.1-1.0</text> </observationRange> </referenceRange> </observation > </component> <component> <observation moodCode="EVN" classCode="OBS"> <templateId root="12.02.840.1.212981.10.2022.4.2" /> <id nullFlavor="NA" /> <code codeSystem="local" code="MO% " displayName="MONOCYTE %" /> <statusCode code="completed" /> <effectiveTime value="011546883764" /> <value unit="%" xsi: type="PQ" value="7.3" /> <interpretationCode codeSystem="local" code="* " /> <referenceRange> <observationRange> <text> 4-6</text> </observationRange> </referenceRange> </ observation> </component> <component> <observation moodCode= "EVN" classCode="OBS"> <templateId root="16.840.1.207617.10.20.22.4.2 " /> <id nullFlavor="NA" /> <code codeSystem="local" code= "MPVT" displayName="MEAN PLATELET VOLUME" /> <statusCode code= "completed" /> <effectiveTime value="268623886277" /> <value unit="fl" xsi:type="PQ" value="9.8" /> <referenceRange> < observationRange> <text>8.5-10.9</text> </ observationRange> </referenceRange> </observation> </ component> <component> <observation moodCode="EVN" classCode="OBS"> <templateId root="12.02.840.1.932068.10.20.22.4.2" /> <id nullFlavor="NA" /> <code codeSystem="local" code="RBC" displayName=" RED BLOOD CELL" /> <statusCode code="completed" /> < effectiveTime value="774596359247" /> <value unit="m/cumm" xsi:type="PQ " value="4.56" /> <referenceRange> <observationRange> <text>4.00-6.00</text> </observationRange> </ referenceRange> </observation> </component> <component> <observation moodCode="EVN" classCode="OBS"> <templateId root= "2.16.840.1.321328.10.22.4.2" /> <id nullFlavor="NA" /> < code codeSystem="local" code="RDW" displayName="RED CELL DISTRIBUTION WIDTH" /> <statusCode code="completed" /> <effectiveTime value= "749371964293" /> <value unit="%" xsi:type="PQ" value="14.4" /> <referenceRange> <observationRange> <text>11.0- 15.6</text> </observationRange> </referenceRange> </ observation> </component> <component> <observation moodCode= "EVN" classCode="OBS"> <templateId root="16.840.1.144506.08.05.22.4.2 " /> <id nullFlavor="NA" /> <code codeSystem="local" code="WBC " displayName="WHITE BLOOD CELL" /> <statusCode code="completed" /> <effectiveTime value="861993076578" /> <value unit="k/cumm" xsi: type="PQ" value="6.7" /> <referenceRange> <observationRange > <text>5.0-10.0</text> </observationRange> </ referenceRange> </observation> </component> <component> <observation moodCode="EVN" classCode="OBS"> <templateId root= "12.02.840.1.235111..22.4.2" /> <id nullFlavor="NA" /> < code codeSystem="local" code="HGBT" displayName="HEMOGLOBIN" /> < statusCode code="completed" /> <effectiveTime value="545753393363" /> <value unit="gm/dL" xsi:type="PQ" value="14.0" /> < referenceRange> <observationRange> <text>14.0-18.0</text > </observationRange> </referenceRange> </observation > </component> <component> <observation moodCode="EVN" classCode="OBS"> <templateId root="2.16.840.1.395291.10..4.2" /> <id nullFlavor="NA" /> <code codeSystem="local" code="HCTT" displayName="HEMATOCRIT" /> <statusCode code="completed" /> < effectiveTime value="" /> <value unit="%" xsi:type="PQ " value="40.5" /> <referenceRange> <observationRange> <text>40.0-54.0</text> </observationRange> </ referenceRange> </observation> </component> <component> <observation moodCode="EVN" classCode="OBS"> <templateId root= "12.02.840.1.875616.08.05.22.4.2" /> <id nullFlavor="NA" /> < code codeSystem="local" code="PLTT" displayName="PLATELET COUNT" /> < statusCode code="completed" /> <effectiveTime value="" /> <value unit="k/cumm" xsi:type="PQ" value="197" /> < referenceRange> <observationRange> <text>150-400</text> </observationRange> </referenceRange> </observation > </component> <component> <observation moodCode="EVN" classCode="OBS"> <templateId root="216.840.1.269385...4.2" /> <id nullFlavor="NA" /> <code codeSystem="local" code="IG% " displayName="IMMATURE GRANULOCYTE %" /> <statusCode code= "completed" /> <effectiveTime value="" /> <value unit="%" xsi:type="PQ" value="0.7" /> <interpretationCode codeSystem="local" code="*" /> <referenceRange> < observationRange> <text>0.0-0.6</text> </ observationRange> </referenceRange> </observation> </ component> <component> <observation moodCode="EVN" classCode="OBS"> <templateId root="16.840.1.679786.10.4.2" /> <id nullFlavor="NA" /> <code codeSystem="local" code="NRBC%" displayName="NRBC %" /> <statusCode code="completed" /> < effectiveTime value="203699929521" /> <value unit="/100WBC" xsi:type= "PQ" value="0.0" /> <referenceRange> <observationRange> <text>0.0-0.0</text> </observationRange> </ referenceRange> </observation> </component> <component> <observation moodCode="EVN" classCode="OBS"> <templateId root= "12.02.840.1.209744.10..4.2" /> <id nullFlavor="NA" /> < code codeSystem="local" code="IG#" displayName="IMMATURE GRANULOCYTE #" /> <statusCode code="completed" /> <effectiveTime value="349845335466 " /> <value unit="k/cumm" xsi:type="PQ" value="0.05" /> < referenceRange> <observationRange> <text>0.00-0.09</text > </observationRange> </referenceRange> </observation > </component> </organizer> </entry> <entry> <organizer moodCode= "EVN" classCode="BATTERY"> <templateId root="16.840.1.990683.10..22.4.1 " /> <id nullFlavor="NA" /> <code codeSystem="local" code="PT" displayName="PROTHROMBIN TIME WITH INR" /> <statusCode code="completed" /> <component> <observation moodCode="EVN" classCode="OBS"> < templateId root="16.840.1.980797.08.05.22.4.2" /> <id nullFlavor="NA " /> <code codeSystem="local" code="INRX" displayName="INTERNATIONAL NORMAL RATIO" /> <statusCode code="completed" /> < effectiveTime value="" /> <value unit="" xsi:type="PQ" value="1.0" /> <referenceRange> <observationRange> <text>0.9-1.1</text> </observationRange> </ referenceRange> </observation> </component> <component> <observation moodCode="EVN" classCode="OBS"> <templateId root= "12.02.840.1.011430.08.05.22.4.2" /> <id nullFlavor="NA" /> < code codeSystem="local" code="PTPAT" displayName="PROTHROMBIN TIME" /> <statusCode code="completed" /> <effectiveTime value="" /> <value unit="sec" xsi:type="PQ" value="11.6" /> < referenceRange> <observationRange> <text>10.0-12.8</text > </observationRange> </referenceRange> </observation > </component> </organizer> </entry> <entry> <organizer moodCode= "EVN" classCode="BATTERY"> <templateId root="216.840.1.980939...22.4.1 " /> <id nullFlavor="NA" /> <code codeSystem="local" code="METAB" displayName="METABOLIC PANEL, BASIC" /> <statusCode code="completed" /> <component> <observation moodCode="EVN" classCode="OBS"> < templateId root="16.840.1.245655.10..22.4.2" /> <id nullFlavor="NA " /> <code codeSystem="local" code="K" displayName="POTASSIUM" /> <statusCode code="completed" /> <effectiveTime value="161409647427 " /> <value unit="mmol/L" xsi:type="PQ" value="4.0" /> < referenceRange> <observationRange> <text>3.5-5.3</text> </observationRange> </referenceRange> </observation > </component> <component> <observation moodCode="EVN" classCode="OBS"> <templateId root="12.02.840.1.717638.10.4.2" /> <id nullFlavor="NA" /> <code codeSystem="local" code="eGFR" displayName="EST GFR (MDRD)" /> <statusCode code="completed" /> <effectiveTime value="014207013588" /> <value unit="mL/min" xsi:type ="PQ" value="53" /> <interpretationCode codeSystem="local" code="*" /> <referenceRange> <observationRange> <text>&gt ; 59</text> </observationRange> </referenceRange> </ observation> </component> <component> <observation moodCode= "EVN" classCode="OBS"> <templateId root="12.02.840.1.923776.10.22.4.2 " /> <id nullFlavor="NA" /> <code codeSystem="local" code="GAP " displayName="ANION GAP" /> <statusCode code="completed" /> < effectiveTime value="524710024195" /> <value unit="mmol/L" xsi:type="PQ " value="5" /> <referenceRange> <observationRange> <text>5-15</text> </observationRange> </referenceRange > </observation> </component> <component> <observation moodCode="EVN" classCode="OBS"> <templateId root= "216.840.1.917581.10..22.4.2" /> <id nullFlavor="NA" /> < code codeSystem="local" code="eCrCl" displayName="EST CrCl (CG)" /> < statusCode code="completed" /> <effectiveTime value="947876023099" /> <value unit="mL/min" xsi:type="PQ" value="56" /> < interpretationCode codeSystem="local" code="*" /> <referenceRange> <observationRange> <text>> 59</text> </ observationRange> </referenceRange> </observation> </ component> <component> <observation moodCode="EVN" classCode="OBS"> <templateId root="16.840.1.092650.10..22.4.2" /> <id nullFlavor="NA" /> <code codeSystem="local" code="GLU" displayName= "GLUCOSE" /> <statusCode code="completed" /> <effectiveTime value="719822086570" /> <value unit="mg/dL" xsi:type="PQ" value="93" / > <referenceRange> <observationRange> <text>70- 99</text> </observationRange> </referenceRange> </ observation> </component> <component> <observation moodCode= "EVN" classCode="OBS"> <templateId root="16.840.1.633311.08.05.22.4.2 " /> <id nullFlavor="NA" /> <code codeSystem="local" code="CA " displayName="CALCIUM" /> <statusCode code="completed" /> < effectiveTime value="075123391174" /> <value unit="mg/dL" xsi:type="PQ " value="9.0" /> <referenceRange> <observationRange> <text>8.5-10.1</text> </observationRange> </ referenceRange> </observation> </component> <component> <observation moodCode="EVN" classCode="OBS"> <templateId root= "216.840.1.430135.08.05.22.4.2" /> <id nullFlavor="NA" /> < code codeSystem="local" code="BUN" displayName="BLOOD UREA NITROGEN" /> <statusCode code="completed" /> <effectiveTime value="000714066041" / > <value unit="mg/dL" xsi:type="PQ" value="19" /> < referenceRange> <observationRange> <text>7-20</text> </observationRange> </referenceRange> </observation> </component> <component> <observation moodCode="EVN" classCode= "OBS"> <templateId root="16.840.1.235564.08.05.22.4.2" /> < id nullFlavor="NA" /> <code codeSystem="local" code="CREAT" displayName ="CREATININE" /> <statusCode code="completed" /> < effectiveTime value="" /> <value unit="mg/dL" xsi:type="PQ " value="1.3" /> <referenceRange> <observationRange> <text>0.7-1.3</text> </observationRange> </ referenceRange> </observation> </component> <component> <observation moodCode="EVN" classCode="OBS"> <templateId root= "216.840.1.861388.10..22.4.2" /> <id nullFlavor="NA" /> < code codeSystem="local" code="NA" displayName="SODIUM" /> <statusCode code="completed" /> <effectiveTime value="" /> < value unit="mmol/L" xsi:type="PQ" value="140" /> <referenceRange> <observationRange> <text>135-148</text> </ observationRange> </referenceRange> </observation> </ component> <component> <observation moodCode="EVN" classCode="OBS"> <templateId root="216.840.1.849832.10..22.4.2" /> <id nullFlavor="NA" /> <code codeSystem="local" code="CL" displayName= "CHLORIDE" /> <statusCode code="completed" /> <effectiveTime value="" /> <value unit="mmol/L" xsi:type="PQ" value="107" /> <referenceRange> <observationRange> <text>98 -110</text> </observationRange> </referenceRange> </ observation> </component> <component> <observation moodCode= "EVN" classCode="OBS"> <templateId root="216.840.1.117624.10..22.4.2 " /> <id nullFlavor="NA" /> <code codeSystem="local" code="CO2 " displayName="CARBON DIOXIDE" /> <statusCode code="completed" /> <effectiveTime value="963548902916" /> <value unit="mmol/L" xsi: type="PQ" value="28" /> <referenceRange> <observationRange> <text>21-32</text> </observationRange> </ referenceRange> </observation> </component> </organizer> </entry > <entry> <organizer moodCode="EVN" classCode="BATTERY"> <templateId root="2.16.840.1.335699.10..22.4.1" /> <id nullFlavor="NA" /> <code codeSystem="local" code="HDLPRO" displayName="LIPID PANEL" /> <statusCode code="completed" /> <component> <observation moodCode="EVN" classCode="OBS"> <templateId root="2.16.840.1.677744.10...4.2" /> <id nullFlavor="NA" /> <code codeSystem="local" code="CHOL/HDL " displayName="CHOLESTEROL/HDL RATIO" /> <statusCode code="completed" / > <effectiveTime value="892082927109" /> <value unit="" xsi: type="PQ" value="3.7" /> <referenceRange> <observationRange > <text> < 5.0</text> </observationRange> </ referenceRange> </observation> </component> <component> <observation moodCode="EVN" classCode="OBS"> <templateId root= "2.16.840.1.157378.10...4.2" /> <id nullFlavor="NA" /> < code codeSystem="local" code="LDLX" displayName="LDL CHOLESTEROL" /> < statusCode code="completed" /> <effectiveTime value="" /> <value unit="mg/dL" xsi:type="PQ" value="87" /> < referenceRange> <observationRange> <text>< 100</text > </observationRange> </referenceRange> </observation > </component> <component> <observation moodCode="EVN" classCode="OBS"> <templateId root="216.840.1.699657.10.20.22.4.2" /> <id nullFlavor="NA" /> <code codeSystem="local" code="VLDL" displayName="VLDL CHOLESTEROL" /> <statusCode code="completed" /> <effectiveTime value="320471538070" /> <value unit="mg/dL" xsi: type="PQ" value="16" /> <referenceRange> <observationRange> <text>< 30</text> </observationRange> </ referenceRange> </observation> </component> <component> <observation moodCode="EVN" classCode="OBS"> <templateId root= "16.840.1.608227.10..22.4.2" /> <id nullFlavor="NA" /> < code codeSystem="local" code="TRIG" displayName="TRIGLYCERIDES" /> < statusCode code="completed" /> <effectiveTime value="" /> <value unit="mg/dL" xsi:type="PQ" value="80" /> < referenceRange> <observationRange> <text>< 150</text > </observationRange> </referenceRange> </observation > </component> <component> <observation moodCode="EVN" classCode="OBS"> <templateId root="16.840.1.555674.10.20.22.4.2" /> <id nullFlavor="NA" /> <code codeSystem="local" code="CHOL" displayName="CHOLESTEROL" /> <statusCode code="completed" /> < effectiveTime value="644629089014" /> <value unit="mg/dL" xsi:type="PQ " value="141" /> <referenceRange> <observationRange> <text>< 200</text> </observationRange> </ referenceRange> </observation> </component> <component> <observation moodCode="EVN" classCode="OBS"> <templateId root= "216.840.1.171469.1022.4.2" /> <id nullFlavor="NA" /> < code codeSystem="local" code="HDL" displayName="HDL CHOLESTEROL" /> < statusCode code="completed" /> <effectiveTime value="895485975715" /> <value unit="mg/dL" xsi:type="PQ" value="38" /> < interpretationCode codeSystem="local" code="*" /> <referenceRange> <observationRange> <text>> 39</text> </ observationRange> </referenceRange> </observation> </ component> </organizer> </entry> <entry> <organizer moodCode="EVN" classCode="BATTERY"> <templateId root="216.840.1.474130.10.22.4.1" /> <id nullFlavor="NA" /> <code codeSystem="local" code="METAB" displayName="METABOLIC PANEL, BASIC" /> <statusCode code="completed" /> <component> <observation moodCode="EVN" classCode="OBS"> < templateId root="216.840.1.363319.10.22.4.2" /> <id nullFlavor="NA " /> <code codeSystem="local" code="K" displayName="POTASSIUM" /> <statusCode code="completed" /> <effectiveTime value="173513809611 " /> <value unit="mmol/L" xsi:type="PQ" value="3.5" /> < referenceRange> <observationRange> <text>3.5-5.3</text> </observationRange> </referenceRange> </observation > </component> <component> <observation moodCode="EVN" classCode="OBS"> <templateId root="2.16.840.1.246783.10..22.4.2" /> <id nullFlavor="NA" /> <code codeSystem="local" code="eGFR" displayName="EST GFR (MDRD)" /> <statusCode code="completed" /> <effectiveTime value="" /> <value unit="mL/min" xsi:type ="PQ" value="53" /> <interpretationCode codeSystem="local" code="*" /> <referenceRange> <observationRange> <text>&gt ; 59</text> </observationRange> </referenceRange> </ observation> </component> <component> <observation moodCode= "EVN" classCode="OBS"> <templateId root="216.840.1.192328.08.05.22.4.2 " /> <id nullFlavor="NA" /> <code codeSystem="local" code="GAP " displayName="ANION GAP" /> <statusCode code="completed" /> < effectiveTime value="" /> <value unit="mmol/L" xsi:type="PQ " value="10" /> <referenceRange> <observationRange> <text>5-15</text> </observationRange> </referenceRange > </observation> </component> <component> <observation moodCode="EVN" classCode="OBS"> <templateId root= "216.840.1.971210.10...4.2" /> <id nullFlavor="NA" /> < code codeSystem="local" code="eCrCl" displayName="EST CrCl (CG)" /> < statusCode code="completed" /> <effectiveTime value="" /> <value unit="mL/min" xsi:type="PQ" value="56" /> < interpretationCode codeSystem="local" code="*" /> <referenceRange> <observationRange> <text>> 59</text> </ observationRange> </referenceRange> </observation> </ component> <component> <observation moodCode="EVN" classCode="OBS"> <templateId root="12.02.840.1.511777.10..4.2" /> <id nullFlavor="NA" /> <code codeSystem="local" code="GLU" displayName= "GLUCOSE" /> <statusCode code="completed" /> <effectiveTime value="" /> <value unit="mg/dL" xsi:type="PQ" value="96" / > <referenceRange> <observationRange> <text>70- 99</text> </observationRange> </referenceRange> </ observation> </component> <component> <observation moodCode= "EVN" classCode="OBS"> <templateId root="12.02.840.1.163296.08.05.22.4.2 " /> <id nullFlavor="NA" /> <code codeSystem="local" code="CA " displayName="CALCIUM" /> <statusCode code="completed" /> < effectiveTime value="" /> <value unit="mg/dL" xsi:type="PQ " value="9.1" /> <referenceRange> <observationRange> <text>8.5-10.1</text> </observationRange> </ referenceRange> </observation> </component> <component> <observation moodCode="EVN" classCode="OBS"> <templateId root= "12.02.840.1.897766.10.22.4.2" /> <id nullFlavor="NA" /> < code codeSystem="local" code="BUN" displayName="BLOOD UREA NITROGEN" /> <statusCode code="completed" /> <effectiveTime value="666596345736" / > <value unit="mg/dL" xsi:type="PQ" value="19" /> < referenceRange> <observationRange> <text>7-20</text> </observationRange> </referenceRange> </observation> </component> <component> <observation moodCode="EVN" classCode= "OBS"> <templateId root="216.840.1.474902.10..22.4.2" /> < id nullFlavor="NA" /> <code codeSystem="local" code="CREAT" displayName ="CREATININE" /> <statusCode code="completed" /> < effectiveTime value="850894890543" /> <value unit="mg/dL" xsi:type="PQ " value="1.3" /> <referenceRange> <observationRange> <text>0.7-1.3</text> </observationRange> </ referenceRange> </observation> </component> <component> <observation moodCode="EVN" classCode="OBS"> <templateId root= "12.02.840.1.887812...22.4.2" /> <id nullFlavor="NA" /> < code codeSystem="local" code="NA" displayName="SODIUM" /> <statusCode code="completed" /> <effectiveTime value="130957773472" /> < value unit="mmol/L" xsi:type="PQ" value="143" /> <referenceRange> <observationRange> <text>135-148</text> </ observationRange> </referenceRange> </observation> </ component> <component> <observation moodCode="EVN" classCode="OBS"> <templateId root="12.02.840.1.760094.08.05.22.4.2" /> <id nullFlavor="NA" /> <code codeSystem="local" code="CL" displayName= "CHLORIDE" /> <statusCode code="completed" /> <effectiveTime value="400353914040" /> <value unit="mmol/L" xsi:type="PQ" value="107" /> <referenceRange> <observationRange> <text>98 -110</text> </observationRange> </referenceRange> </ observation> </component> <component> <observation moodCode= "EVN" classCode="OBS"> <templateId root="840.1.340545.08.05.224.2 " /> <id nullFlavor="NA" /> <code codeSystem="local" code="CO2 " displayName="CARBON DIOXIDE" /> <statusCode code="completed" /> <effectiveTime value="" /> <value unit="mmol/L" xsi: type="PQ" value="26" /> <referenceRange> <observationRange> <text>21-32</text> </observationRange> </ referenceRange> </observation> </component> </organizer> </entry > <entry> <organizer moodCode="EVN" classCode="BATTERY"> <templateId root="12.02.840.1.959606.08.05.22.4.1" /> <id nullFlavor="NA" /> <code codeSystem="local" code="[id number]" displayName="TYPE/SCREEN" /> <statusCode code="completed" /> <component> <observation moodCode="EVN" classCode="OBS"> <templateId root="16.840.1.984276.08.05.22.4.2" /> <id nullFlavor="NA" /> <code codeSystem="local" code="Llg963" displayName="ABO/RH" /> <statusCode code="completed" /> < effectiveTime value="" /> <value unit="" xsi:type="PQ" value="O POSITIVE" /> <referenceRange> <observationRange> <text /> </observationRange> </referenceRange> </observation> </component> <component> <observation moodCode="EVN" classCode="OBS"> <templateId root= "12.02.840.1.111714.08.05.224.2" /> <id nullFlavor="NA" /> < code codeSystem="local" code="Vpz047" displayName="ANTIBODY SCREEN" /> <statusCode code="completed" /> <effectiveTime value="" /> <value unit="" xsi:type="PQ" value=" POSITIVE" /> < referenceRange> <observationRange> <text /> < /observationRange> </referenceRange> </observation> </ component> </organizer> </entry> <entry> <organizer moodCode="EVN" classCode="BATTERY"> <templateId root="12.02.840.1.739398.08.05.22.4.1" /> <id nullFlavor="NA" /> <code codeSystem="local" code="CBCD" displayName="CBC W/DIFF" /> <statusCode code="completed" /> <component > <observation moodCode="EVN" classCode="OBS"> <templateId root= "12.02.840.1.778842.08.05.22.4.2" /> <id nullFlavor="NA" /> < code codeSystem="local" code="BA#" displayName="BASOPHIL #" /> < statusCode code="completed" /> <effectiveTime value="015116844954" /> <value unit="k/cumm" xsi:type="PQ" value="0.0" /> < referenceRange> <observationRange> <text>0.0-0.2</text> </observationRange> </referenceRange> </observation > </component> <component> <observation moodCode="EVN" classCode="OBS"> <templateId root="12.02.840.1.705311.10.20.22.4.2" /> <id nullFlavor="NA" /> <code codeSystem="local" code="BA% " displayName="BASOPHIL %" /> <statusCode code="completed" /> <effectiveTime value="361464108504" /> <value unit="%" xsi: type="PQ" value="0.2" /> <referenceRange> <observationRange > <text>0-1</text> </observationRange> </ referenceRange> </observation> </component> <component> <observation moodCode="EVN" classCode="OBS"> <templateId root= "12.02.840.1.329813...4.2" /> <id nullFlavor="NA" /> < code codeSystem="local" code="EO#" displayName="EOSINOPHIL #" /> < statusCode code="completed" /> <effectiveTime value="908109783520" /> <value unit="k/cumm" xsi:type="PQ" value="0.0" /> < interpretationCode codeSystem="local" code="*" /> <referenceRange> <observationRange> <text>0.1-0.5</text> </ observationRange> </referenceRange> </observation> </ component> <component> <observation moodCode="EVN" classCode="OBS"> <templateId root="12.02.840.1.993196.10.20.22.4.2" /> <id nullFlavor="NA" /> <code codeSystem="local" code="EO%" displayName= "EOSINOPHIL %" /> <statusCode code="completed" /> < effectiveTime value="440973640323" /> <value unit="%" xsi:type="PQ " value="0.1" /> <interpretationCode codeSystem="local" code="*" /> <referenceRange> <observationRange> <text>2-4</ text> </observationRange> </referenceRange> </ observation> </component> <component> <observation moodCode= "EVN" classCode="OBS"> <templateId root="2.16.840.1.788052.10.4.2 " /> <id nullFlavor="NA" /> <code codeSystem="local" code="GR# " displayName="GRANULOCYTE #" /> <statusCode code="completed" /> <effectiveTime value="056803528993" /> <value unit="k/cumm" xsi: type="PQ" value="15.1" /> <interpretationCode codeSystem="local" code= "*" /> <referenceRange> <observationRange> < text>2.0-9.0</text> </observationRange> </referenceRange> </observation> </component> <component> <observation moodCode="EVN" classCode="OBS"> <templateId root= "2.16.840.1.282746.10.4.2" /> <id nullFlavor="NA" /> < code codeSystem="local" code="GR%" displayName="GRANULOCYTE %" /> <statusCode code="completed" /> <effectiveTime value="229225748778 " /> <value unit="%" xsi:type="PQ" value="81.0" /> < interpretationCode codeSystem="local" code="*" /> <referenceRange> <observationRange> <text>50-75</text> </ observationRange> </referenceRange> </observation> </ component> <component> <observation moodCode="EVN" classCode="OBS"> <templateId root="12.02.840.1.003755.10.20.22.4.2" /> <id nullFlavor="NA" /> <code codeSystem="local" code="LY#" displayName= "LYMPHOCYTE #" /> <statusCode code="completed" /> < effectiveTime value="492092192204" /> <value unit="k/cumm" xsi:type="PQ " value="2.3" /> <referenceRange> <observationRange> <text>1.0-4.0</text> </observationRange> </ referenceRange> </observation> </component> <component> <observation moodCode="EVN" classCode="OBS"> <templateId root= "12.02.840.1.641290.10.22.4.2" /> <id nullFlavor="NA" /> < code codeSystem="local" code="LY%" displayName="LYMPHOCYTE %" /> <statusCode code="completed" /> <effectiveTime value="514942326597" /> <value unit="%" xsi:type="PQ" value="12.4" /> < interpretationCode codeSystem="local" code="*" /> <referenceRange> <observationRange> <text>20-30</text> </ observationRange> </referenceRange> </observation> </ component> <component> <observation moodCode="EVN" classCode="OBS"> <templateId root="12.02.840.1.566583.10.2022.4.2" /> <id nullFlavor="NA" /> <code codeSystem="local" code="MCH" displayName= "MEAN CELL HGB" /> <statusCode code="completed" /> < effectiveTime value="141355121319" /> <value unit="pg" xsi:type="PQ" value="30.9" /> <referenceRange> <observationRange> <text>27.0-33.0</text> </observationRange> </ referenceRange> </observation> </component> <component> <observation moodCode="EVN" classCode="OBS"> <templateId root= "216.840.1.666868.10..22.4.2" /> <id nullFlavor="NA" /> < code codeSystem="local" code="MCHC" displayName="MEAN CELL HGB CONCENTRATION" / > <statusCode code="completed" /> <effectiveTime value= "504648992591" /> <value unit="g/dL" xsi:type="PQ" value="34.2" /> <referenceRange> <observationRange> <text>32.0- 37.0</text> </observationRange> </referenceRange> </ observation> </component> <component> <observation moodCode= "EVN" classCode="OBS"> <templateId root="216.840.1.921957.10..22.4.2 " /> <id nullFlavor="NA" /> <code codeSystem="local" code="MCV " displayName="MEAN CELL VOLUME" /> <statusCode code="completed" /> <effectiveTime value="622211188708" /> <value unit="fl" xsi:type ="PQ" value="90.4" /> <referenceRange> <observationRange> <text>80.0-100.0</text> </observationRange> </ referenceRange> </observation> </component> <component> <observation moodCode="EVN" classCode="OBS"> <templateId root= "216.840.1.890718.22.4.2" /> <id nullFlavor="NA" /> < code codeSystem="local" code="MO#" displayName="MONOCYTE #" /> < statusCode code="completed" /> <effectiveTime value="423759932226" /> <value unit="k/cumm" xsi:type="PQ" value="1.1" /> < interpretationCode codeSystem="local" code="*" /> <referenceRange> <observationRange> <text>0.1-1.0</text> </ observationRange> </referenceRange> </observation> </ component> <component> <observation moodCode="EVN" classCode="OBS"> <templateId root="12.02.840.1.722292.08.05.22.4.2" /> <id nullFlavor="NA" /> <code codeSystem="local" code="MO%" displayName= "MONOCYTE %" /> <statusCode code="completed" /> < effectiveTime value="764488183496" /> <value unit="%" xsi:type="PQ " value="5.7" /> <referenceRange> <observationRange> <text>4-6</text> </observationRange> </referenceRange > </observation> </component> <component> <observation moodCode="EVN" classCode="OBS"> <templateId root= "12.02.840.1.897563.1022.4.2" /> <id nullFlavor="NA" /> < code codeSystem="local" code="MPVT" displayName="MEAN PLATELET VOLUME" /> <statusCode code="completed" /> <effectiveTime value="291241208728 " /> <value unit="fl" xsi:type="PQ" value="10.3" /> < referenceRange> <observationRange> <text>8.5-10.9</text > </observationRange> </referenceRange> </observation > </component> <component> <observation moodCode="EVN" classCode="OBS"> <templateId root="12.02.840.1.960787.10.20.22.4.2" /> <id nullFlavor="NA" /> <code codeSystem="local" code="RBC" displayName="RED BLOOD CELL" /> <statusCode code="completed" /> <effectiveTime value="547428166657" /> <value unit="m/cumm" xsi:type ="PQ" value="3.85" /> <interpretationCode codeSystem="local" code="*" / > <referenceRange> <observationRange> <text> 4.00-6.00</text> </observationRange> </referenceRange> </observation> </component> <component> <observation moodCode="EVN" classCode="OBS"> <templateId root= "840.1.867772.10..4.2" /> <id nullFlavor="NA" /> < code codeSystem="local" code="RDW" displayName="RED CELL DISTRIBUTION WIDTH" /> <statusCode code="completed" /> <effectiveTime value= "916109326532" /> <value unit="%" xsi:type="PQ" value="13.8" /> <referenceRange> <observationRange> <text>11.0- 15.6</text> </observationRange> </referenceRange> </ observation> </component> <component> <observation moodCode= "EVN" classCode="OBS"> <templateId root="12.02.840.1.560617.10.20.22.4.2 " /> <id nullFlavor="NA" /> <code codeSystem="local" code="WBC " displayName="WHITE BLOOD CELL" /> <statusCode code="completed" /> <effectiveTime value="227409438678" /> <value unit="k/cumm" xsi: type="PQ" value="18.7" /> <interpretationCode codeSystem="local" code= "*" /> <referenceRange> <observationRange> < text>5.0-10.0</text> </observationRange> </referenceRange> </observation> </component> <component> <observation moodCode="EVN" classCode="OBS"> <templateId root= "2.16.840.1.539359.10.20.22.4.2" /> <id nullFlavor="NA" /> < code codeSystem="local" code="HGBT" displayName="HEMOGLOBIN" /> < statusCode code="completed" /> <effectiveTime value="444948672359" /> <value unit="gm/dL" xsi:type="PQ" value="11.9" /> < interpretationCode codeSystem="local" code="*" /> <referenceRange> <observationRange> <text>14.0-18.0</text> </ observationRange> </referenceRange> </observation> </ component> <component> <observation moodCode="EVN" classCode="OBS"> <templateId root="2.16.840.1.055268.10.20.22.4.2" /> <id nullFlavor="NA" /> <code codeSystem="local" code="HCTT" displayName= "HEMATOCRIT" /> <statusCode code="completed" /> < effectiveTime value="357304417077" /> <value unit="%" xsi:type="PQ " value="34.8" /> <interpretationCode codeSystem="local" code="*" /> <referenceRange> <observationRange> <text>40.0- 54.0</text> </observationRange> </referenceRange> </ observation> </component> <component> <observation moodCode= "EVN" classCode="OBS"> <templateId root="2.16.840.1.297953.10..4.2 " /> <id nullFlavor="NA" /> <code codeSystem="local" code= "NRBC%" displayName="NRBC %" /> <statusCode code="completed" / > <effectiveTime value="763587750872" /> <value unit="/100WBC " xsi:type="PQ" value="0.0" /> <referenceRange> < observationRange> <text>0.0-0.0</text> </ observationRange> </referenceRange> </observation> </ component> <component> <observation moodCode="EVN" classCode="OBS"> <templateId root="216.840.1.497601.08.05.22.4.2" /> <id nullFlavor="NA" /> <code codeSystem="local" code="PLTT" displayName= "PLATELET COUNT" /> <statusCode code="completed" /> < effectiveTime value="626629506558" /> <value unit="k/cumm" xsi:type="PQ " value="277" /> <referenceRange> <observationRange> <text>150-400</text> </observationRange> </ referenceRange> </observation> </component> <component> <observation moodCode="EVN" classCode="OBS"> <templateId root= "2.16.840.1.740548.10..4.2" /> <id nullFlavor="NA" /> < code codeSystem="local" code="IG%" displayName="IMMATURE GRANULOCYTE %" /> <statusCode code="completed" /> <effectiveTime value= "114210663878" /> <value unit="%" xsi:type="PQ" value="0.6" /> <referenceRange> <observationRange> <text>0.0-0.6< /text> </observationRange> </referenceRange> </ observation> </component> <component> <observation moodCode= "EVN" classCode="OBS"> <templateId root="840.1.620330.08.05.22.4.2 " /> <id nullFlavor="NA" /> <code codeSystem="local" code="IG# " displayName="IMMATURE GRANULOCYTE #" /> <statusCode code="completed" /> <effectiveTime value="208069742758" /> <value unit="k/cumm " xsi:type="PQ" value="0.12" /> <interpretationCode codeSystem="local" code="*" /> <referenceRange> <observationRange> <text>0.00-0.09</text> </observationRange> </ referenceRange> </observation> </component> </organizer> </entry > <entry> <organizer moodCode="EVN" classCode="BATTERY"> <templateId root="840.1.646286.08.05.22.4.1" /> <id nullFlavor="NA" /> <code codeSystem="local" code="PT" displayName="PROTHROMBIN TIME WITH INR" /> < statusCode code="completed" /> <component> <observation moodCode= "EVN" classCode="OBS"> <templateId root="840.1.071843.08.05.22.4.2 " /> <id nullFlavor="NA" /> <code codeSystem="local" code= "INRX" displayName="INTERNATIONAL NORMAL RATIO" /> <statusCode code= "completed" /> <effectiveTime value="108871038535" /> <value unit="" xsi:type="PQ" value="1.1" /> <referenceRange> < observationRange> <text>0.9-1.1</text> </ observationRange> </referenceRange> </observation> </ component> <component> <observation moodCode="EVN" classCode="OBS"> <templateId root="16.840.1.112825.1022.4.2" /> <id nullFlavor="NA" /> <code codeSystem="local" code="PTPAT" displayName= "PROTHROMBIN TIME" /> <statusCode code="completed" /> < effectiveTime value="229733164828" /> <value unit="sec" xsi:type="PQ" value="12.3" /> <referenceRange> <observationRange> <text>10.0-12.8</text> </observationRange> </ referenceRange> </observation> </component> </organizer> </entry > <entry> <organizer moodCode="EVN" classCode="BATTERY"> <templateId root="12.02.840.1.489708.22.4.1" /> <id nullFlavor="NA" /> <code codeSystem="local" code="METABC" displayName="METABOLIC PANEL, COMPREHN" /> <statusCode code="completed" /> <component> <observation moodCode= "EVN" classCode="OBS"> <templateId root="12.02.840.1.778719.22.4.2 " /> <id nullFlavor="NA" /> <code codeSystem="local" code="K" displayName="POTASSIUM" /> <statusCode code="completed" /> < effectiveTime value="643048772515" /> <value unit="mmol/L" xsi:type="PQ " value="4.5" /> <referenceRange> <observationRange> <text>3.5-5.3</text> </observationRange> </ referenceRange> </observation> </component> <component> <observation moodCode="EVN" classCode="OBS"> <templateId root= "12.02.840.1.244586.10.20.22.4.2" /> <id nullFlavor="NA" /> < code codeSystem="local" code="eGFR" displayName="EST GFR (MDRD)" /> < statusCode code="completed" /> <effectiveTime value="409736518276" /> <value unit="mL/min" xsi:type="PQ" value="49" /> < interpretationCode codeSystem="local" code="*" /> <referenceRange> <observationRange> <text>> 59</text> </ observationRange> </referenceRange> </observation> </ component> <component> <observation moodCode="EVN" classCode="OBS"> <templateId root="840.1.634122.10...4.2" /> <id nullFlavor="NA" /> <code codeSystem="local" code="GAP" displayName= "ANION GAP" /> <statusCode code="completed" /> <effectiveTime value="239567210485" /> <value unit="mmol/L" xsi:type="PQ" value="17" / > <interpretationCode codeSystem="local" code="*" /> < referenceRange> <observationRange> <text>5-15</text> </observationRange> </referenceRange> </observation> </component> <component> <observation moodCode="EVN" classCode= "OBS"> <templateId root="12.02.840.1.501354.10.20.22.4.2" /> < id nullFlavor="NA" /> <code codeSystem="local" code="eCrCl" displayName ="EST CrCl (CG)" /> <statusCode code="completed" /> < effectiveTime value="643572586624" /> <value unit="mL/min" xsi:type="PQ " value="50" /> <interpretationCode codeSystem="local" code="*" /> <referenceRange> <observationRange> <text>> 59< /text> </observationRange> </referenceRange> </ observation> </component> <component> <observation moodCode= "EVN" classCode="OBS"> <templateId root="216.840.1.262852.10.20.22.4.2 " /> <id nullFlavor="NA" /> <code codeSystem="local" code="GLU " displayName="GLUCOSE" /> <statusCode code="completed" /> < effectiveTime value="558981722882" /> <value unit="mg/dL" xsi:type="PQ " value="179" /> <interpretationCode codeSystem="local" code="*" /> <referenceRange> <observationRange> <text>70-99</ text> </observationRange> </referenceRange> </ observation> </component> <component> <observation moodCode= "EVN" classCode="OBS"> <templateId root="2.16.840.1.743383.10.20.22.4.2 " /> <id nullFlavor="NA" /> <code codeSystem="local" code="CA " displayName="CALCIUM" /> <statusCode code="completed" /> < effectiveTime value="360955099730" /> <value unit="mg/dL" xsi:type="PQ " value="8.6" /> <referenceRange> <observationRange> <text>8.5-10.1</text> </observationRange> </ referenceRange> </observation> </component> <component> <observation moodCode="EVN" classCode="OBS"> <templateId root= "16.840.1.479088.10..22.4.2" /> <id nullFlavor="NA" /> < code codeSystem="local" code="BUN" displayName="BLOOD UREA NITROGEN" /> <statusCode code="completed" /> <effectiveTime value="021034066675" / > <value unit="mg/dL" xsi:type="PQ" value="24" /> < interpretationCode codeSystem="local" code="*" /> <referenceRange> <observationRange> <text>7-20</text> </ observationRange> </referenceRange> </observation> </ component> <component> <observation moodCode="EVN" classCode="OBS"> <templateId root="12.02.840.1.757014.08.05.22.4.2" /> <id nullFlavor="NA" /> <code codeSystem="local" code="CREAT" displayName= "CREATININE" /> <statusCode code="completed" /> < effectiveTime value="297369648622" /> <value unit="mg/dL" xsi:type="PQ " value="1.4" /> <interpretationCode codeSystem="local" code="*" /> <referenceRange> <observationRange> <text>0.7-1.3 </text> </observationRange> </referenceRange> </ observation> </component> <component> <observation moodCode= "EVN" classCode="OBS"> <templateId root="12.02.840.1.934522..22.4.2 " /> <id nullFlavor="NA" /> <code codeSystem="local" code="NA " displayName="SODIUM" /> <statusCode code="completed" /> < effectiveTime value="648812067252" /> <value unit="mmol/L" xsi:type="PQ " value="142" /> <referenceRange> <observationRange> <text>135-148</text> </observationRange> </ referenceRange> </observation> </component> <component> <observation moodCode="EVN" classCode="OBS"> <templateId root= "16.840.1.721320.10..22.4.2" /> <id nullFlavor="NA" /> < code codeSystem="local" code="CL" displayName="CHLORIDE" /> < statusCode code="completed" /> <effectiveTime value="691482377549" /> <value unit="mmol/L" xsi:type="PQ" value="106" /> < referenceRange> <observationRange> <text>98-110</text> </observationRange> </referenceRange> </observation> </component> <component> <observation moodCode="EVN" classCode ="OBS"> <templateId root="12.02.840.1.073477.10...4.2" /> < id nullFlavor="NA" /> <code codeSystem="local" code="AST" displayName= "AST/SGOT" /> <statusCode code="completed" /> <effectiveTime value="470695581367" /> <value unit="Units/L" xsi:type="PQ" value="22" /> <referenceRange> <observationRange> <text>10 -37</text> </observationRange> </referenceRange> </ observation> </component> <component> <observation moodCode= "EVN" classCode="OBS"> <templateId root="12.02.840.1.141739.10.20.22.4.2 " /> <id nullFlavor="NA" /> <code codeSystem="local" code="ALT " displayName="ALT/SGPT" /> <statusCode code="completed" /> < effectiveTime value="719702198769" /> <value unit="Units/L" xsi:type= "PQ" value="33" /> <referenceRange> <observationRange> <text>< 66</text> </observationRange> </ referenceRange> </observation> </component> <component> <observation moodCode="EVN" classCode="OBS"> <templateId root= "16.840.1.601724.08.05.22.4.2" /> <id nullFlavor="NA" /> < code codeSystem="local" code="CO2" displayName="CARBON DIOXIDE" /> < statusCode code="completed" /> <effectiveTime value="472115348612" /> <value unit="mmol/L" xsi:type="PQ" value="19" /> < interpretationCode codeSystem="local" code="*" /> <referenceRange> <observationRange> <text>21-32</text> </ observationRange> </referenceRange> </observation> </ component> <component> <observation moodCode="EVN" classCode="OBS"> <templateId root="12.02.840.1.434970.08.05.22.4.2" /> <id nullFlavor="NA" /> <code codeSystem="local" code="TP" displayName= "TOTAL PROTEIN" /> <statusCode code="completed" /> < effectiveTime value="065449487677" /> <value unit="gm/dL" xsi:type="PQ " value="6.6" /> <referenceRange> <observationRange> <text>6.4-8.2</text> </observationRange> </ referenceRange> </observation> </component> <component> <observation moodCode="EVN" classCode="OBS"> <templateId root= "12.02.840.1.474008.08.05.22.4.2" /> <id nullFlavor="NA" /> < code codeSystem="local" code="ALB" displayName="ALBUMIN" /> < statusCode code="completed" /> <effectiveTime value="739681601316" /> <value unit="gm/dL" xsi:type="PQ" value="3.4" /> < referenceRange> <observationRange> <text>3.4-5.0</text> </observationRange> </referenceRange> </observation > </component> <component> <observation moodCode="EVN" classCode="OBS"> <templateId root="216.840.1.965215.08.05.22.4.2" /> <id nullFlavor="NA" /> <code codeSystem="local" code="BILTOT" displayName="BILI TOTAL" /> <statusCode code="completed" /> < effectiveTime value="499630044156" /> <value unit="mg/dL" xsi:type="PQ " value="1.2" /> <interpretationCode codeSystem="local" code="*" /> <referenceRange> <observationRange> <text>0.0-1.0 </text> </observationRange> </referenceRange> </ observation> </component> <component> <observation moodCode= "EVN" classCode="OBS"> <templateId root="216.840.1.927405.08.05.22.4.2 " /> <id nullFlavor="NA" /> <code codeSystem="local" code= "ALKP" displayName="ALKALINE PHOSPHATASE TOTAL" /> <statusCode code= "completed" /> <effectiveTime value="800195787775" /> <value unit="IU/L" xsi:type="PQ" value="67" /> <referenceRange> < observationRange> <text>45-117</text> </observationRange > </referenceRange> </observation> </component> </ organizer> </entry> <entry> <organizer moodCode="EVN" classCode="BATTERY"> <templateId root="216.840.1.789216.10..22.4.1" /> <id nullFlavor= "NA" /> <code codeSystem="local" code="CBC" displayName="CBC" /> < statusCode code="completed" /> <component> <observation moodCode= "EVN" classCode="OBS"> <templateId root="216.840.1.786908.10...4.2 " /> <id nullFlavor="NA" /> <code codeSystem="local" code="MCH " displayName="MEAN CELL HGB" /> <statusCode code="completed" /> <effectiveTime value="" /> <value unit="pg" xsi:type= "PQ" value="31.1" /> <referenceRange> <observationRange> <text>27.0-33.0</text> </observationRange> </ referenceRange> </observation> </component> <component> <observation moodCode="EVN" classCode="OBS"> <templateId root= "216.840.1.249374.10..22.4.2" /> <id nullFlavor="NA" /> < code codeSystem="local" code="MCHC" displayName="MEAN CELL HGB CONCENTRATION" / > <statusCode code="completed" /> <effectiveTime value= "028366576804" /> <value unit="g/dL" xsi:type="PQ" value="34.9" /> <referenceRange> <observationRange> <text>32.0- 37.0</text> </observationRange> </referenceRange> </ observation> </component> <component> <observation moodCode= "EVN" classCode="OBS"> <templateId root="840.1.048520.10.20.22.4.2 " /> <id nullFlavor="NA" /> <code codeSystem="local" code="MCV " displayName="MEAN CELL VOLUME" /> <statusCode code="completed" /> <effectiveTime value="995875631066" /> <value unit="fl" xsi:type ="PQ" value="89.2" /> <referenceRange> <observationRange> <text>80.0-100.0</text> </observationRange> </ referenceRange> </observation> </component> <component> <observation moodCode="EVN" classCode="OBS"> <templateId root= "840.1.345426.102022.4.2" /> <id nullFlavor="NA" /> < code codeSystem="local" code="MPVT" displayName="MEAN PLATELET VOLUME" /> <statusCode code="completed" /> <effectiveTime value="922954513945 " /> <value unit="fl" xsi:type="PQ" value="9.9" /> < referenceRange> <observationRange> <text>8.5-10.9</text > </observationRange> </referenceRange> </observation > </component> <component> <observation moodCode="EVN" classCode="OBS"> <templateId root="840.1.642266.10.20.22.4.2" /> <id nullFlavor="NA" /> <code codeSystem="local" code="RBC" displayName="RED BLOOD CELL" /> <statusCode code="completed" /> <effectiveTime value="500438673665" /> <value unit="m/cumm" xsi:type ="PQ" value="3.34" /> <interpretationCode codeSystem="local" code="*" / > <referenceRange> <observationRange> <text> 4.00-6.00</text> </observationRange> </referenceRange> </observation> </component> <component> <observation moodCode="EVN" classCode="OBS"> <templateId root= "216.840.1.778416.10.20.22.4.2" /> <id nullFlavor="NA" /> < code codeSystem="local" code="RDW" displayName="RED CELL DISTRIBUTION WIDTH" /> <statusCode code="completed" /> <effectiveTime value= "412331869766" /> <value unit="%" xsi:type="PQ" value="13.9" /> <referenceRange> <observationRange> <text>11.0- 15.6</text> </observationRange> </referenceRange> </ observation> </component> <component> <observation moodCode= "EVN" classCode="OBS"> <templateId root="12.02.840.1.472515.10.22.4.2 " /> <id nullFlavor="NA" /> <code codeSystem="local" code="WBC " displayName="WHITE BLOOD CELL" /> <statusCode code="completed" /> <effectiveTime value="047423756020" /> <value unit="k/cumm" xsi: type="PQ" value="15.6" /> <interpretationCode codeSystem="local" code= "*" /> <referenceRange> <observationRange> < text>5.0-10.0</text> </observationRange> </referenceRange> </observation> </component> <component> <observation moodCode="EVN" classCode="OBS"> <templateId root= "12.02.840.1.285888.10.20.22.4.2" /> <id nullFlavor="NA" /> < code codeSystem="local" code="HGBT" displayName="HEMOGLOBIN" /> < statusCode code="completed" /> <effectiveTime value="" /> <value unit="gm/dL" xsi:type="PQ" value="10.4" /> < interpretationCode codeSystem="local" code="*" /> <referenceRange> <observationRange> <text>14.0-18.0</text> </ observationRange> </referenceRange> </observation> </ component> <component> <observation moodCode="EVN" classCode="OBS"> <templateId root="2.16.840.1.898203.10..22.4.2" /> <id nullFlavor="NA" /> <code codeSystem="local" code="HCTT" displayName= "HEMATOCRIT" /> <statusCode code="completed" /> < effectiveTime value="" /> <value unit="%" xsi:type="PQ " value="29.8" /> <interpretationCode codeSystem="local" code="*" /> <referenceRange> <observationRange> <text>40.0- 54.0</text> </observationRange> </referenceRange> </ observation> </component> <component> <observation moodCode= "EVN" classCode="OBS"> <templateId root="2.16.840.1.834679.10.20.22.4.2 " /> <id nullFlavor="NA" /> <code codeSystem="local" code= "NRBC%" displayName="NRBC %" /> <statusCode code="completed" / > <effectiveTime value="" /> <value unit="/100WBC " xsi:type="PQ" value="0.0" /> <referenceRange> < observationRange> <text>0.0-0.0</text> </ observationRange> </referenceRange> </observation> </ component> <component> <observation moodCode="EVN" classCode="OBS"> <templateId root="216.840.1.541441.10..22.4.2" /> <id nullFlavor="NA" /> <code codeSystem="local" code="PLTT" displayName= "PLATELET COUNT" /> <statusCode code="completed" /> < effectiveTime value="971886364417" /> <value unit="k/cumm" xsi:type="PQ " value="160" /> <referenceRange> <observationRange> <text>150-400</text> </observationRange> </ referenceRange> </observation> </component> </organizer> </entry > <entry> <organizer moodCode="EVN" classCode="BATTERY"> <templateId root="216.840.1.748393.10..22.4.1" /> <id nullFlavor="NA" /> <code codeSystem="local" code="CBCD" displayName="CBC W/DIFF" /> <statusCode code ="completed" /> <component> <observation moodCode="EVN" classCode= "OBS"> <templateId root="2.16.840.1.402521.10..22.4.2" /> < id nullFlavor="NA" /> <code codeSystem="local" code="BA#" displayName= "BASOPHIL #" /> <statusCode code="completed" /> < effectiveTime value="743454103545" /> <value unit="k/cumm" xsi:type="PQ " value="0.0" /> <referenceRange> <observationRange> <text>0.0-0.2</text> </observationRange> </ referenceRange> </observation> </component> <component> <observation moodCode="EVN" classCode="OBS"> <templateId root= "12.02.840.1.783196.10.20.22.4.2" /> <id nullFlavor="NA" /> < code codeSystem="local" code="BA%" displayName="BASOPHIL %" /> <statusCode code="completed" /> <effectiveTime value="337426898655" /> <value unit="%" xsi:type="PQ" value="0.2" /> < referenceRange> <observationRange> <text>0-1</text> </observationRange> </referenceRange> </observation> </component> <component> <observation moodCode="EVN" classCode= "OBS"> <templateId root="12.02.840.1.268343.10.22.4.2" /> < id nullFlavor="NA" /> <code codeSystem="local" code="EO#" displayName= "EOSINOPHIL #" /> <statusCode code="completed" /> < effectiveTime value="383442694039" /> <value unit="k/cumm" xsi:type="PQ " value="0.0" /> <interpretationCode codeSystem="local" code="*" /> <referenceRange> <observationRange> <text>0.1-0.5 </text> </observationRange> </referenceRange> </ observation> </component> <component> <observation moodCode= "EVN" classCode="OBS"> <templateId root="12.02.840.1.924130.10.2022.4.2 " /> <id nullFlavor="NA" /> <code codeSystem="local" code="EO& #37;" displayName="EOSINOPHIL %" /> <statusCode code="completed" / > <effectiveTime value="824976333345" /> <value unit="%" xsi:type="PQ" value="0.1" /> <interpretationCode codeSystem="local" code="*" /> <referenceRange> <observationRange> <text>2-4</text> </observationRange> </referenceRange> </observation> </component> <component> <observation moodCode="EVN" classCode="OBS"> <templateId root= "12.02.840.1.336782.08.05.22.4.2" /> <id nullFlavor="NA" /> < code codeSystem="local" code="GR#" displayName="GRANULOCYTE #" /> < statusCode code="completed" /> <effectiveTime value="500126338634" /> <value unit="k/cumm" xsi:type="PQ" value="10.7" /> < interpretationCode codeSystem="local" code="*" /> <referenceRange> <observationRange> <text>2.0-9.0</text> </ observationRange> </referenceRange> </observation> </ component> <component> <observation moodCode="EVN" classCode="OBS"> <templateId root="12.02.840.1.277707.08.05.22.4.2" /> <id nullFlavor="NA" /> <code codeSystem="local" code="GR%" displayName= "GRANULOCYTE %" /> <statusCode code="completed" /> < effectiveTime value="274714342735" /> <value unit="%" xsi:type="PQ " value="79.2" /> <interpretationCode codeSystem="local" code="*" /> <referenceRange> <observationRange> <text>50-75< /text> </observationRange> </referenceRange> </ observation> </component> <component> <observation moodCode= "EVN" classCode="OBS"> <templateId root="840.1.215330.10.2022.4.2 " /> <id nullFlavor="NA" /> <code codeSystem="local" code="LY# " displayName="LYMPHOCYTE #" /> <statusCode code="completed" /> <effectiveTime value="082588773815" /> <value unit="k/cumm" xsi:type ="PQ" value="2.0" /> <referenceRange> <observationRange> <text>1.0-4.0</text> </observationRange> </ referenceRange> </observation> </component> <component> <observation moodCode="EVN" classCode="OBS"> <templateId root= "12.02.840.1.595347.1022.4.2" /> <id nullFlavor="NA" /> < code codeSystem="local" code="LY%" displayName="LYMPHOCYTE %" /> <statusCode code="completed" /> <effectiveTime value="023013865869" /> <value unit="%" xsi:type="PQ" value="14.7" /> < interpretationCode codeSystem="local" code="*" /> <referenceRange> <observationRange> <text>20-30</text> </ observationRange> </referenceRange> </observation> </ component> <component> <observation moodCode="EVN" classCode="OBS"> <templateId root="12.02.840.1.284866.10.2022.4.2" /> <id nullFlavor="NA" /> <code codeSystem="local" code="MCH" displayName= "MEAN CELL HGB" /> <statusCode code="completed" /> < effectiveTime value="210378260429" /> <value unit="pg" xsi:type="PQ" value="30.9" /> <referenceRange> <observationRange> <text>27.0-33.0</text> </observationRange> </ referenceRange> </observation> </component> <component> <observation moodCode="EVN" classCode="OBS"> <templateId root= "12.02.840.1.270032.10.2022.4.2" /> <id nullFlavor="NA" /> < code codeSystem="local" code="MCHC" displayName="MEAN CELL HGB CONCENTRATION" / > <statusCode code="completed" /> <effectiveTime value= "317866412848" /> <value unit="g/dL" xsi:type="PQ" value="33.8" /> <referenceRange> <observationRange> <text>32.0- 37.0</text> </observationRange> </referenceRange> </ observation> </component> <component> <observation moodCode= "EVN" classCode="OBS"> <templateId root="12.02.840.1.908564.10..4.2 " /> <id nullFlavor="NA" /> <code codeSystem="local" code="MCV " displayName="MEAN CELL VOLUME" /> <statusCode code="completed" /> <effectiveTime value="572297822644" /> <value unit="fl" xsi:type ="PQ" value="91.2" /> <referenceRange> <observationRange> <text>80.0-100.0</text> </observationRange> </ referenceRange> </observation> </component> <component> <observation moodCode="EVN" classCode="OBS"> <templateId root= "12.02.840.1.632249.10.20.4.2" /> <id nullFlavor="NA" /> < code codeSystem="local" code="MO#" displayName="MONOCYTE #" /> < statusCode code="completed" /> <effectiveTime value="064865062093" /> <value unit="k/cumm" xsi:type="PQ" value="0.7" /> < referenceRange> <observationRange> <text>0.1-1.0</text> </observationRange> </referenceRange> </observation > </component> <component> <observation moodCode="EVN" classCode="OBS"> <templateId root="216.840.1.812454.10..4.2" /> <id nullFlavor="NA" /> <code codeSystem="local" code="MO% " displayName="MONOCYTE %" /> <statusCode code="completed" /> <effectiveTime value="831294133686" /> <value unit="%" xsi: type="PQ" value="5.3" /> <referenceRange> <observationRange > <text>4-6</text> </observationRange> </ referenceRange> </observation> </component> <component> <observation moodCode="EVN" classCode="OBS"> <templateId root= "16.840.1.875261.08.05.22.4.2" /> <id nullFlavor="NA" /> < code codeSystem="local" code="MPVT" displayName="MEAN PLATELET VOLUME" /> <statusCode code="completed" /> <effectiveTime value="616697745628 " /> <value unit="fl" xsi:type="PQ" value="10.1" /> < referenceRange> <observationRange> <text>8.5-10.9</text > </observationRange> </referenceRange> </observation > </component> <component> <observation moodCode="EVN" classCode="OBS"> <templateId root="16.840.1.083669.22.4.2" /> <id nullFlavor="NA" /> <code codeSystem="local" code="RBC" displayName="RED BLOOD CELL" /> <statusCode code="completed" /> <effectiveTime value="905588348075" /> <value unit="m/cumm" xsi:type ="PQ" value="2.85" /> <interpretationCode codeSystem="local" code="*" / > <referenceRange> <observationRange> <text> 4.00-6.00</text> </observationRange> </referenceRange> </observation> </component> <component> <observation moodCode="EVN" classCode="OBS"> <templateId root= "216.840.1.613544.08.05.22.4.2" /> <id nullFlavor="NA" /> < code codeSystem="local" code="RDW" displayName="RED CELL DISTRIBUTION WIDTH" /> <statusCode code="completed" /> <effectiveTime value= "403019895588" /> <value unit="%" xsi:type="PQ" value="14.0" /> <referenceRange> <observationRange> <text>11.0- 15.6</text> </observationRange> </referenceRange> </ observation> </component> <component> <observation moodCode= "EVN" classCode="OBS"> <templateId root="216.840.1.084836.08.05.22.4.2 " /> <id nullFlavor="NA" /> <code codeSystem="local" code="WBC " displayName="WHITE BLOOD CELL" /> <statusCode code="completed" /> <effectiveTime value="975089936267" /> <value unit="k/cumm" xsi: type="PQ" value="13.5" /> <interpretationCode codeSystem="local" code= "*" /> <referenceRange> <observationRange> < text>5.0-10.0</text> </observationRange> </referenceRange> </observation> </component> <component> <observation moodCode="EVN" classCode="OBS"> <templateId root= "12.02.840.1.512394.10.20.22.4.2" /> <id nullFlavor="NA" /> < code codeSystem="local" code="HGBT" displayName="HEMOGLOBIN" /> < statusCode code="completed" /> <effectiveTime value="254214419332" /> <value unit="gm/dL" xsi:type="PQ" value="8.8" /> < interpretationCode codeSystem="local" code="*" /> <referenceRange> <observationRange> <text>14.0-18.0</text> </ observationRange> </referenceRange> </observation> </ component> <component> <observation moodCode="EVN" classCode="OBS"> <templateId root="12.02.840.1.507328.10..22.4.2" /> <id nullFlavor="NA" /> <code codeSystem="local" code="HCTT" displayName= "HEMATOCRIT" /> <statusCode code="completed" /> < effectiveTime value="285148315770" /> <value unit="%" xsi:type="PQ " value="26.0" /> <interpretationCode codeSystem="local" code="*" /> <referenceRange> <observationRange> <text>40.0- 54.0</text> </observationRange> </referenceRange> </ observation> </component> <component> <observation moodCode= "EVN" classCode="OBS"> <templateId root="12.02.840.1.311048.10.20.22.4.2 " /> <id nullFlavor="NA" /> <code codeSystem="local" code= "NRBC%" displayName="NRBC %" /> <statusCode code="completed" / > <effectiveTime value="002164124769" /> <value unit="/100WBC " xsi:type="PQ" value="0.0" /> <referenceRange> < observationRange> <text>0.0-0.0</text> </ observationRange> </referenceRange> </observation> </ component> <component> <observation moodCode="EVN" classCode="OBS"> <templateId root="2.16.840.1.691419.10..22.4.2" /> <id nullFlavor="NA" /> <code codeSystem="local" code="PLTT" displayName= "PLATELET COUNT" /> <statusCode code="completed" /> < effectiveTime value="369580456601" /> <value unit="k/cumm" xsi:type="PQ " value="158" /> <referenceRange> <observationRange> <text>150-400</text> </observationRange> </ referenceRange> </observation> </component> <component> <observation moodCode="EVN" classCode="OBS"> <templateId root= "2.16.840.1.253098.10..22.4.2" /> <id nullFlavor="NA" /> < code codeSystem="local" code="IG%" displayName="IMMATURE GRANULOCYTE %" /> <statusCode code="completed" /> <effectiveTime value= "240522527164" /> <value unit="%" xsi:type="PQ" value="0.5" /> <referenceRange> <observationRange> <text>0.0-0.6< /text> </observationRange> </referenceRange> </ observation> </component> <component> <observation moodCode= "EVN" classCode="OBS"> <templateId root="840.1.211266.10.20.22.4.2 " /> <id nullFlavor="NA" /> <code codeSystem="local" code="IG# " displayName="IMMATURE GRANULOCYTE #" /> <statusCode code="completed" /> <effectiveTime value="113495358991" /> <value unit="k/cumm " xsi:type="PQ" value="0.07" /> <referenceRange> < observationRange> <text>0.00-0.09</text> </ observationRange> </referenceRange> </observation> </ component> </organizer> </entry> <entry> <organizer moodCode="EVN" classCode="BATTERY"> <templateId root="12.02.840.1.928881.10.20.22.4.1" /> <id nullFlavor="NA" /> <code codeSystem="local" code="GLUMON" displayName="GLUCOSE (POC)" /> <statusCode code="completed" /> < component> <observation moodCode="EVN" classCode="OBS"> < templateId root="12.02.840.1.711623.10.20.22.4.2" /> <id nullFlavor="NA " /> <code codeSystem="local" code="GLUMON" displayName="GLUCOSE (POC) " /> <statusCode code="completed" /> <effectiveTime value= "539833243924" /> <value unit="mg/dL" xsi:type="PQ" value="92" /> <referenceRange> <observationRange> <text>70-99</ text> </observationRange> </referenceRange> </ observation> </component> </organizer> </entry> <entry> <organizer moodCode="EVN" classCode="BATTERY"> <templateId root= "840.1.589493.10..22.4.1" /> <id nullFlavor="NA" /> <code codeSystem="local" code="HGB" displayName="HEMOGLOBIN" /> <statusCode code= "completed" /> <component> <observation moodCode="EVN" classCode= "OBS"> <templateId root="12.02.840.1.120730.08.05.22.4.2" /> < id nullFlavor="NA" /> <code codeSystem="local" code="MCV" displayName= "MEAN CELL VOLUME" /> <statusCode code="completed" /> < effectiveTime value="" /> <value unit="fl" xsi:type="PQ" value="92.0" /> <referenceRange> <observationRange> <text>80.0-100.0</text> </observationRange> </ referenceRange> </observation> </component> <component> <observation moodCode="EVN" classCode="OBS"> <templateId root= "12.02.840.1.751864.08.05.22.4.2" /> <id nullFlavor="NA" /> < code codeSystem="local" code="HGBT" displayName="HEMOGLOBIN" /> < statusCode code="completed" /> <effectiveTime value="" /> <value unit="gm/dL" xsi:type="PQ" value="9.0" /> < interpretationCode codeSystem="local" code="*" /> <referenceRange> <observationRange> <text>14.0-18.0</text> </ observationRange> </referenceRange> </observation> </ component> </organizer> </entry> <entry> <organizer moodCode="EVN" classCode="BATTERY"> <templateId root="12.02.840.1.112972.08.05.22.4.1" /> <id nullFlavor="NA" /> <code codeSystem="local" code="GLUMON" displayName="GLUCOSE (POC)" /> <statusCode code="completed" /> < component> <observation moodCode="EVN" classCode="OBS"> < templateId root="840.1.330998.08.05.224.2" /> <id nullFlavor="NA " /> <code codeSystem="local" code="GLUMON" displayName="GLUCOSE (POC) " /> <statusCode code="completed" /> <effectiveTime value= "003047501810" /> <value unit="mg/dL" xsi:type="PQ" value="119" /> <interpretationCode codeSystem="local" code="*" /> < referenceRange> <observationRange> <text>70-99</text> </observationRange> </referenceRange> </observation> </component> </organizer> </entry> <entry> <organizer moodCode="EVN " classCode="BATTERY"> <templateId root="840.1.187613.08.05.224.1" / > <id nullFlavor="NA" /> <code codeSystem="local" code="CBCD" displayName="CBC W/DIFF" /> <statusCode code="completed" /> <component > <observation moodCode="EVN" classCode="OBS"> <templateId root= "840.1.896850.10.4.2" /> <id nullFlavor="NA" /> < code codeSystem="local" code="BA#" displayName="BASOPHIL #" /> < statusCode code="completed" /> <effectiveTime value="158888708978" /> <value unit="k/cumm" xsi:type="PQ" value="0.0" /> < referenceRange> <observationRange> <text>0.0-0.2</text> </observationRange> </referenceRange> </observation > </component> <component> <observation moodCode="EVN" classCode="OBS"> <templateId root="12.02.840.1.486792.10.20.22.4.2" /> <id nullFlavor="NA" /> <code codeSystem="local" code="BA% " displayName="BASOPHIL %" /> <statusCode code="completed" /> <effectiveTime value="188717970090" /> <value unit="%" xsi: type="PQ" value="0.1" /> <referenceRange> <observationRange > <text>0-1</text> </observationRange> </ referenceRange> </observation> </component> <component> <observation moodCode="EVN" classCode="OBS"> <templateId root= "12.02.840.1.883850.10..4.2" /> <id nullFlavor="NA" /> < code codeSystem="local" code="EO#" displayName="EOSINOPHIL #" /> < statusCode code="completed" /> <effectiveTime value="441368651433" /> <value unit="k/cumm" xsi:type="PQ" value="0.0" /> < interpretationCode codeSystem="local" code="*" /> <referenceRange> <observationRange> <text>0.1-0.5</text> </ observationRange> </referenceRange> </observation> </ component> <component> <observation moodCode="EVN" classCode="OBS"> <templateId root="12.02.840.1.323349.10.2022.4.2" /> <id nullFlavor="NA" /> <code codeSystem="local" code="EO%" displayName= "EOSINOPHIL %" /> <statusCode code="completed" /> < effectiveTime value="375819456996" /> <value unit="%" xsi:type="PQ " value="0.0" /> <interpretationCode codeSystem="local" code="*" /> <referenceRange> <observationRange> <text>2-4</ text> </observationRange> </referenceRange> </ observation> </component> <component> <observation moodCode= "EVN" classCode="OBS"> <templateId root="2.16.840.1.781811.10..4.2 " /> <id nullFlavor="NA" /> <code codeSystem="local" code="GR# " displayName="GRANULOCYTE #" /> <statusCode code="completed" /> <effectiveTime value="" /> <value unit="k/cumm" xsi: type="PQ" value="9.4" /> <interpretationCode codeSystem="local" code="* " /> <referenceRange> <observationRange> <text> 2.0-9.0</text> </observationRange> </referenceRange> </observation> </component> <component> <observation moodCode= "EVN" classCode="OBS"> <templateId root="2.16.840.1.707075.102022.4.2 " /> <id nullFlavor="NA" /> <code codeSystem="local" code="GR& #37;" displayName="GRANULOCYTE %" /> <statusCode code="completed" / > <effectiveTime value="850811875882" /> <value unit="%" xsi:type="PQ" value="91.5" /> <interpretationCode codeSystem="local" code="*" /> <referenceRange> <observationRange> <text>50-75</text> </observationRange> </referenceRange> </observation> </component> <component> <observation moodCode="EVN" classCode="OBS"> <templateId root= "16.840.1.582645.10.4.2" /> <id nullFlavor="NA" /> < code codeSystem="local" code="LY#" displayName="LYMPHOCYTE #" /> < statusCode code="completed" /> <effectiveTime value="186133687125" /> <value unit="k/cumm" xsi:type="PQ" value="0.6" /> < interpretationCode codeSystem="local" code="*" /> <referenceRange> <observationRange> <text>1.0-4.0</text> </ observationRange> </referenceRange> </observation> </ component> <component> <observation moodCode="EVN" classCode="OBS"> <templateId root="16.840.1.068919.10.4.2" /> <id nullFlavor="NA" /> <code codeSystem="local" code="LY%" displayName= "LYMPHOCYTE %" /> <statusCode code="completed" /> < effectiveTime value="540331783403" /> <value unit="%" xsi:type="PQ " value="6.0" /> <interpretationCode codeSystem="local" code="*" /> <referenceRange> <observationRange> <text>20-30</ text> </observationRange> </referenceRange> </ observation> </component> <component> <observation moodCode= "EVN" classCode="OBS"> <templateId root="16.840.1.947003.10.2022.4.2 " /> <id nullFlavor="NA" /> <code codeSystem="local" code="MCH " displayName="MEAN CELL HGB" /> <statusCode code="completed" /> <effectiveTime value="316798574296" /> <value unit="pg" xsi:type= "PQ" value="31.2" /> <referenceRange> <observationRange> <text>27.0-33.0</text> </observationRange> </ referenceRange> </observation> </component> <component> <observation moodCode="EVN" classCode="OBS"> <templateId root= "2.16.840.1.805036.10.20.22.4.2" /> <id nullFlavor="NA" /> < code codeSystem="local" code="MCHC" displayName="MEAN CELL HGB CONCENTRATION" / > <statusCode code="completed" /> <effectiveTime value= "499263668753" /> <value unit="g/dL" xsi:type="PQ" value="34.4" /> <referenceRange> <observationRange> <text>32.0- 37.0</text> </observationRange> </referenceRange> </ observation> </component> <component> <observation moodCode= "EVN" classCode="OBS"> <templateId root="2.16.840.1.266910.10.20.22.4.2 " /> <id nullFlavor="NA" /> <code codeSystem="local" code="MCV " displayName="MEAN CELL VOLUME" /> <statusCode code="completed" /> <effectiveTime value="326035562477" /> <value unit="fl" xsi:type ="PQ" value="90.7" /> <referenceRange> <observationRange> <text>80.0-100.0</text> </observationRange> </ referenceRange> </observation> </component> <component> <observation moodCode="EVN" classCode="OBS"> <templateId root= "12.02.840.1.600759.10.2022.4.2" /> <id nullFlavor="NA" /> < code codeSystem="local" code="MO#" displayName="MONOCYTE #" /> < statusCode code="completed" /> <effectiveTime value="247462179413" /> <value unit="k/cumm" xsi:type="PQ" value="0.2" /> < referenceRange> <observationRange> <text>0.1-1.0</text> </observationRange> </referenceRange> </observation > </component> <component> <observation moodCode="EVN" classCode="OBS"> <templateId root="12.02.840.1.174505.1022.4.2" /> <id nullFlavor="NA" /> <code codeSystem="local" code="MO% " displayName="MONOCYTE %" /> <statusCode code="completed" /> <effectiveTime value="194370524698" /> <value unit="%" xsi: type="PQ" value="1.7" /> <interpretationCode codeSystem="local" code="* " /> <referenceRange> <observationRange> <text> 4-6</text> </observationRange> </referenceRange> </ observation> </component> <component> <observation moodCode= "EVN" classCode="OBS"> <templateId root="12.02.840.1.229671.10.2022.4.2 " /> <id nullFlavor="NA" /> <code codeSystem="local" code= "MPVT" displayName="MEAN PLATELET VOLUME" /> <statusCode code= "completed" /> <effectiveTime value="099654373224" /> <value unit="fl" xsi:type="PQ" value="10.1" /> <referenceRange> < observationRange> <text>8.5-10.9</text> </ observationRange> </referenceRange> </observation> </ component> <component> <observation moodCode="EVN" classCode="OBS"> <templateId root="216.840.1.522778.10.20.22.4.2" /> <id nullFlavor="NA" /> <code codeSystem="local" code="RBC" displayName=" RED BLOOD CELL" /> <statusCode code="completed" /> < effectiveTime value="790897225380" /> <value unit="m/cumm" xsi:type="PQ " value="3.01" /> <interpretationCode codeSystem="local" code="*" /> <referenceRange> <observationRange> <text>4.00- 6.00</text> </observationRange> </referenceRange> </ observation> </component> <component> <observation moodCode= "EVN" classCode="OBS"> <templateId root="12.02.840.1.752056.10..4.2 " /> <id nullFlavor="NA" /> <code codeSystem="local" code="RDW " displayName="RED CELL DISTRIBUTION WIDTH" /> <statusCode code= "completed" /> <effectiveTime value="774591020714" /> <value unit="%" xsi:type="PQ" value="13.9" /> <referenceRange> <observationRange> <text>11.0-15.6</text> </ observationRange> </referenceRange> </observation> </ component> <component> <observation moodCode="EVN" classCode="OBS"> <templateId root="16.840.1.208343.10.20.22.4.2" /> <id nullFlavor="NA" /> <code codeSystem="local" code="WBC" displayName= "WHITE BLOOD CELL" /> <statusCode code="completed" /> < effectiveTime value="010255728987" /> <value unit="k/cumm" xsi:type="PQ " value="10.3" /> <interpretationCode codeSystem="local" code="*" /> <referenceRange> <observationRange> <text>5.0- 10.0</text> </observationRange> </referenceRange> </ observation> </component> <component> <observation moodCode= "EVN" classCode="OBS"> <templateId root="2.16.840.1.502526.10..22.4.2 " /> <id nullFlavor="NA" /> <code codeSystem="local" code= "HGBT" displayName="HEMOGLOBIN" /> <statusCode code="completed" /> <effectiveTime value="250382408750" /> <value unit="gm/dL" xsi: type="PQ" value="9.4" /> <interpretationCode codeSystem="local" code="* " /> <referenceRange> <observationRange> <text> 14.0-18.0</text> </observationRange> </referenceRange> </observation> </component> <component> <observation moodCode="EVN" classCode="OBS"> <templateId root= "216.840.1.756245.10.20.22.4.2" /> <id nullFlavor="NA" /> < code codeSystem="local" code="HCTT" displayName="HEMATOCRIT" /> < statusCode code="completed" /> <effectiveTime value="687669271747" /> <value unit="%" xsi:type="PQ" value="27.3" /> < interpretationCode codeSystem="local" code="*" /> <referenceRange> <observationRange> <text>40.0-54.0</text> </ observationRange> </referenceRange> </observation> </ component> <component> <observation moodCode="EVN" classCode="OBS"> <templateId root="2.16.840.1.018648.10..4.2" /> <id nullFlavor="NA" /> <code codeSystem="local" code="NRBC%" displayName="NRBC %" /> <statusCode code="completed" /> < effectiveTime value="756697833405" /> <value unit="/100WBC" xsi:type= "PQ" value="0.0" /> <referenceRange> <observationRange> <text>0.0-0.0</text> </observationRange> </ referenceRange> </observation> </component> <component> <observation moodCode="EVN" classCode="OBS"> <templateId root= "[id number]" /> <id nullFlavor="NA" /> < code codeSystem="local" code="PLTT" displayName="PLATELET COUNT" /> < statusCode code="completed" /> <effectiveTime value="[id number]" /> <value unit="k/cumm" xsi:type="PQ" value="157" /> < referenceRange> <observationRange> <text>150-400</text> </observationRange> </referenceRange> </observation > </component> <component> <observation moodCode="EVN" classCode="OBS"> <templateId root="216.840.1.296710.08.05.22.4.2" /> <id nullFlavor="NA" /> <code codeSystem="local" code="IG% " displayName="IMMATURE GRANULOCYTE %" /> <statusCode code= "completed" /> <effectiveTime value="936599133773" /> <value unit="%" xsi:type="PQ" value="0.7" /> <interpretationCode codeSystem="local" code="*" /> <referenceRange> < observationRange> <text>0.0-0.6</text> </ observationRange> </referenceRange> </observation> </ component> <component> <observation moodCode="EVN" classCode="OBS"> <templateId root="840.1.368682.10.4.2" /> <id nullFlavor="NA" /> <code codeSystem="local" code="IG#" displayName= "IMMATURE GRANULOCYTE #" /> <statusCode code="completed" /> < effectiveTime value="426697115675" /> <value unit="k/cumm" xsi:type="PQ " value="0.07" /> <referenceRange> <observationRange> <text>0.00-0.09</text> </observationRange> </ referenceRange> </observation> </component> </organizer> </entry > <entry> <organizer moodCode="EVN" classCode="BATTERY"> <templateId root="840.1.733015.22.4.1" /> <id nullFlavor="NA" /> <code codeSystem="local" code="METABC" displayName="METABOLIC PANEL, COMPREHN" /> <statusCode code="completed" /> <component> <observation moodCode= "EVN" classCode="OBS"> <templateId root="840.1.190138.22.4.2 " /> <id nullFlavor="NA" /> <code codeSystem="local" code="K" displayName="POTASSIUM" /> <statusCode code="completed" /> < effectiveTime value="896490345624" /> <value unit="mmol/L" xsi:type="PQ " value="4.4" /> <referenceRange> <observationRange> <text>3.5-5.3</text> </observationRange> </ referenceRange> </observation> </component> <component> <observation moodCode="EVN" classCode="OBS"> <templateId root= "12.02.840.1.228568.08.05.22.4.2" /> <id nullFlavor="NA" /> < code codeSystem="local" code="eGFR" displayName="EST GFR (MDRD)" /> < statusCode code="completed" /> <effectiveTime value="801165809151" /> <value unit="mL/min" xsi:type="PQ" value="53" /> < interpretationCode codeSystem="local" code="*" /> <referenceRange> <observationRange> <text>> 59</text> </ observationRange> </referenceRange> </observation> </ component> <component> <observation moodCode="EVN" classCode="OBS"> <templateId root="12.02.840.1.878628.08.05.22.4.2" /> <id nullFlavor="NA" /> <code codeSystem="local" code="GAP" displayName= "ANION GAP" /> <statusCode code="completed" /> <effectiveTime value="558965909098" /> <value unit="mmol/L" xsi:type="PQ" value="9" / > <referenceRange> <observationRange> <text>5- 15</text> </observationRange> </referenceRange> </ observation> </component> <component> <observation moodCode= "EVN" classCode="OBS"> <templateId root="12.02.840.1.024808...4.2 " /> <id nullFlavor="NA" /> <code codeSystem="local" code= "eCrCl" displayName="EST CrCl (CG)" /> <statusCode code="completed" /> <effectiveTime value="270357614877" /> <value unit="mL/min" xsi:type="PQ" value="54" /> <interpretationCode codeSystem="local" code ="*" /> <referenceRange> <observationRange> < text>> 59</text> </observationRange> </referenceRange> </observation> </component> <component> <observation moodCode="EVN" classCode="OBS"> <templateId root= "216.840.1.675912.08.05.22.4.2" /> <id nullFlavor="NA" /> < code codeSystem="local" code="GLU" displayName="GLUCOSE" /> < statusCode code="completed" /> <effectiveTime value="" /> <value unit="mg/dL" xsi:type="PQ" value="139" /> < interpretationCode codeSystem="local" code="*" /> <referenceRange> <observationRange> <text>70-99</text> </ observationRange> </referenceRange> </observation> </ component> <component> <observation moodCode="EVN" classCode="OBS"> <templateId root="16.840.1.139277.08.05.22.4.2" /> <id nullFlavor="NA" /> <code codeSystem="local" code="CA" displayName= "CALCIUM" /> <statusCode code="completed" /> <effectiveTime value="844932384428" /> <value unit="mg/dL" xsi:type="PQ" value="8.2" / > <interpretationCode codeSystem="local" code="*" /> < referenceRange> <observationRange> <text>8.5-10.1</text > </observationRange> </referenceRange> </observation > </component> <component> <observation moodCode="EVN" classCode="OBS"> <templateId root="216.840.1.065967.10.20.22.4.2" /> <id nullFlavor="NA" /> <code codeSystem="local" code="BUN" displayName="BLOOD UREA NITROGEN" /> <statusCode code="completed" /> <effectiveTime value="354591127945" /> <value unit="mg/dL" xsi: type="PQ" value="22" /> <interpretationCode codeSystem="local" code="* " /> <referenceRange> <observationRange> <text> 7-20</text> </observationRange> </referenceRange> </ observation> </component> <component> <observation moodCode= "EVN" classCode="OBS"> <templateId root="12.02.840.1.067917.08.05.22.4.2 " /> <id nullFlavor="NA" /> <code codeSystem="local" code= "CREAT" displayName="CREATININE" /> <statusCode code="completed" /> <effectiveTime value="549184477586" /> <value unit="mg/dL" xsi: type="PQ" value="1.3" /> <referenceRange> <observationRange > <text>0.7-1.3</text> </observationRange> </ referenceRange> </observation> </component> <component> <observation moodCode="EVN" classCode="OBS"> <templateId root= "12.02.840.1.527091.10..22.4.2" /> <id nullFlavor="NA" /> < code codeSystem="local" code="NA" displayName="SODIUM" /> <statusCode code="completed" /> <effectiveTime value="139706751869" /> < value unit="mmol/L" xsi:type="PQ" value="139" /> <referenceRange> <observationRange> <text>135-148</text> </ observationRange> </referenceRange> </observation> </ component> <component> <observation moodCode="EVN" classCode="OBS"> <templateId root="216.840.1.981393.10..4.2" /> <id nullFlavor="NA" /> <code codeSystem="local" code="CL" displayName= "CHLORIDE" /> <statusCode code="completed" /> <effectiveTime value="859180284813" /> <value unit="mmol/L" xsi:type="PQ" value="108" /> <referenceRange> <observationRange> <text>98 -110</text> </observationRange> </referenceRange> </ observation> </component> <component> <observation moodCode= "EVN" classCode="OBS"> <templateId root="2.840.1.355429...4.2 " /> <id nullFlavor="NA" /> <code codeSystem="local" code="AST " displayName="AST/SGOT" /> <statusCode code="completed" /> < effectiveTime value="690279479445" /> <value unit="Units/L" xsi:type= "PQ" value="24" /> <referenceRange> <observationRange> <text>10-37</text> </observationRange> </ referenceRange> </observation> </component> <component> <observation moodCode="EVN" classCode="OBS"> <templateId root= "216.840.1.685431.10.22.4.2" /> <id nullFlavor="NA" /> < code codeSystem="local" code="ALT" displayName="ALT/SGPT" /> < statusCode code="completed" /> <effectiveTime value="017429324921" /> <value unit="Units/L" xsi:type="PQ" value="28" /> < referenceRange> <observationRange> <text>< 66</text> </observationRange> </referenceRange> </observation > </component> <component> <observation moodCode="EVN" classCode="OBS"> <templateId root="216.840.1.948570.10.20.22.4.2" /> <id nullFlavor="NA" /> <code codeSystem="local" code="CO2" displayName="CARBON DIOXIDE" /> <statusCode code="completed" /> <effectiveTime value="460851150250" /> <value unit="mmol/L" xsi:type ="PQ" value="22" /> <referenceRange> <observationRange> <text>21-32</text> </observationRange> </ referenceRange> </observation> </component> <component> <observation moodCode="EVN" classCode="OBS"> <templateId root= "16.840.1.175058.10.20.22.4.2" /> <id nullFlavor="NA" /> < code codeSystem="local" code="TP" displayName="TOTAL PROTEIN" /> < statusCode code="completed" /> <effectiveTime value="382131677512" /> <value unit="gm/dL" xsi:type="PQ" value="5.6" /> < interpretationCode codeSystem="local" code="*" /> <referenceRange> <observationRange> <text>6.4-8.2</text> </ observationRange> </referenceRange> </observation> </ component> <component> <observation moodCode="EVN" classCode="OBS"> <templateId root="12.02.840.1.894347.10..22.4.2" /> <id nullFlavor="NA" /> <code codeSystem="local" code="ALB" displayName= "ALBUMIN" /> <statusCode code="completed" /> <effectiveTime value="484670781455" /> <value unit="gm/dL" xsi:type="PQ" value="2.8" / > <interpretationCode codeSystem="local" code="*" /> < referenceRange> <observationRange> <text>3.4-5.0</text> </observationRange> </referenceRange> </observation > </component> <component> <observation moodCode="EVN" classCode="OBS"> <templateId root="840.1.790277.08.05.22.4.2" /> <id nullFlavor="NA" /> <code codeSystem="local" code="BILTOT" displayName="BILI TOTAL" /> <statusCode code="completed" /> < effectiveTime value="330875945825" /> <value unit="mg/dL" xsi:type="PQ " value="1.2" /> <interpretationCode codeSystem="local" code="*" /> <referenceRange> <observationRange> <text>0.0-1.0 </text> </observationRange> </referenceRange> </ observation> </component> <component> <observation moodCode= "EVN" classCode="OBS"> <templateId root="12.02.840.1.482237.1022.4.2 " /> <id nullFlavor="NA" /> <code codeSystem="local" code= "ALKP" displayName="ALKALINE PHOSPHATASE TOTAL" /> <statusCode code= "completed" /> <effectiveTime value="822108380497" /> <value unit="IU/L" xsi:type="PQ" value="50" /> <referenceRange> < observationRange> <text>45-117</text> </observationRange > </referenceRange> </observation> </component> </ organizer> </entry> <entry> <organizer moodCode="EVN" classCode="BATTERY"> <templateId root="12.02.840.1.378181.10..22.4.1" /> <id nullFlavor= "NA" /> <code codeSystem="local" code="GLUMON" displayName="GLUCOSE (POC)" /> <statusCode code="completed" /> <component> <observation moodCode="EVN" classCode="OBS"> <templateId root= "12.02.840.1.007689.10..22.4.2" /> <id nullFlavor="NA" /> < code codeSystem="local" code="GLUMON" displayName="GLUCOSE (POC)" /> < statusCode code="completed" /> <effectiveTime value="042485190419" /> <value unit="mg/dL" xsi:type="PQ" value="100" /> < interpretationCode codeSystem="local" code="*" /> <referenceRange> <observationRange> <text>70-99</text> </ observationRange> </referenceRange> </observation> </ component> </organizer> </entry> <entry> <organizer moodCode="EVN" classCode="BATTERY"> <templateId root="12.02.840.1.826376.10..22.4.1" /> <id nullFlavor="NA" /> <code codeSystem="local" code="GLUMON" displayName="GLUCOSE (POC)" /> <statusCode code="completed" /> < component> <observation moodCode="EVN" classCode="OBS"> < templateId root="840.1.699289.10..22.4.2" /> <id nullFlavor="NA " /> <code codeSystem="local" code="GLUMON" displayName="GLUCOSE (POC) " /> <statusCode code="completed" /> <effectiveTime value= "008493609140" /> <value unit="mg/dL" xsi:type="PQ" value="90" /> <referenceRange> <observationRange> <text>70-99</ text> </observationRange> </referenceRange> </ observation> </component> </organizer> </entry> <entry> <organizer moodCode="EVN" classCode="BATTERY"> <templateId root= "12.02.840.1.192833.10..22.4.1" /> <id nullFlavor="NA" /> <code codeSystem="local" code="CBC" displayName="CBC" /> <statusCode code= "completed" /> <component> <observation moodCode="EVN" classCode= "OBS"> <templateId root="12.02.840.1.465307.10..22.4.2" /> < id nullFlavor="NA" /> <code codeSystem="local" code="MCH" displayName= "MEAN CELL HGB" /> <statusCode code="completed" /> < effectiveTime value="417642122905" /> <value unit="pg" xsi:type="PQ" value="31.1" /> <referenceRange> <observationRange> <text>27.0-33.0</text> </observationRange> </ referenceRange> </observation> </component> <component> <observation moodCode="EVN" classCode="OBS"> <templateId root= "12.02.840.1.835575.10.20.22.4.2" /> <id nullFlavor="NA" /> < code codeSystem="local" code="MCHC" displayName="MEAN CELL HGB CONCENTRATION" / > <statusCode code="completed" /> <effectiveTime value= "627182969927" /> <value unit="g/dL" xsi:type="PQ" value="33.9" /> <referenceRange> <observationRange> <text>32.0- 37.0</text> </observationRange> </referenceRange> </ observation> </component> <component> <observation moodCode= "EVN" classCode="OBS"> <templateId root="216.840.1.196518.10.20.22.4.2 " /> <id nullFlavor="NA" /> <code codeSystem="local" code="MCV " displayName="MEAN CELL VOLUME" /> <statusCode code="completed" /> <effectiveTime value="" /> <value unit="fl" xsi:type ="PQ" value="91.9" /> <referenceRange> <observationRange> <text>80.0-100.0</text> </observationRange> </ referenceRange> </observation> </component> <component> <observation moodCode="EVN" classCode="OBS"> <templateId root= "216.840.1.589990.10.20.22.4.2" /> <id nullFlavor="NA" /> < code codeSystem="local" code="MPVT" displayName="MEAN PLATELET VOLUME" /> <statusCode code="completed" /> <effectiveTime value="621629319405 " /> <value unit="fl" xsi:type="PQ" value="10.5" /> < referenceRange> <observationRange> <text>8.5-10.9</text > </observationRange> </referenceRange> </observation > </component> <component> <observation moodCode="EVN" classCode="OBS"> <templateId root="216.840.1.889275.10.20.22.4.2" /> <id nullFlavor="NA" /> <code codeSystem="local" code="RBC" displayName="RED BLOOD CELL" /> <statusCode code="completed" /> <effectiveTime value="" /> <value unit="m/cumm" xsi:type ="PQ" value="2.73" /> <interpretationCode codeSystem="local" code="*" / > <referenceRange> <observationRange> <text> 4.00-6.00</text> </observationRange> </referenceRange> </observation> </component> <component> <observation moodCode="EVN" classCode="OBS"> <templateId root= "16.840.1.826280.10...4.2" /> <id nullFlavor="NA" /> < code codeSystem="local" code="RDW" displayName="RED CELL DISTRIBUTION WIDTH" /> <statusCode code="completed" /> <effectiveTime value= "458130585226" /> <value unit="%" xsi:type="PQ" value="13.9" /> <referenceRange> <observationRange> <text>11.0- 15.6</text> </observationRange> </referenceRange> </ observation> </component> <component> <observation moodCode= "EVN" classCode="OBS"> <templateId root="12.02.840.1.760959.10.20.22.4.2 " /> <id nullFlavor="NA" /> <code codeSystem="local" code="WBC " displayName="WHITE BLOOD CELL" /> <statusCode code="completed" /> <effectiveTime value="873249901681" /> <value unit="k/cumm" xsi: type="PQ" value="8.2" /> <referenceRange> <observationRange > <text>5.0-10.0</text> </observationRange> </ referenceRange> </observation> </component> <component> <observation moodCode="EVN" classCode="OBS"> <templateId root= "216.840.1.381004.10.20.22.4.2" /> <id nullFlavor="NA" /> < code codeSystem="local" code="HGBT" displayName="HEMOGLOBIN" /> < statusCode code="completed" /> <effectiveTime value="566431356509" /> <value unit="gm/dL" xsi:type="PQ" value="8.5" /> < interpretationCode codeSystem="local" code="*" /> <referenceRange> <observationRange> <text>14.0-18.0</text> </ observationRange> </referenceRange> </observation> </ component> <component> <observation moodCode="EVN" classCode="OBS"> <templateId root="12.02.840.1.591172.10..22.4.2" /> <id nullFlavor="NA" /> <code codeSystem="local" code="HCTT" displayName= "HEMATOCRIT" /> <statusCode code="completed" /> < effectiveTime value="661055178384" /> <value unit="%" xsi:type="PQ " value="25.1" /> <interpretationCode codeSystem="local" code="*" /> <referenceRange> <observationRange> <text>40.0- 54.0</text> </observationRange> </referenceRange> </ observation> </component> <component> <observation moodCode= "EVN" classCode="OBS"> <templateId root="16.840.1.364059.10.20.22.4.2 " /> <id nullFlavor="NA" /> <code codeSystem="local" code= "NRBC%" displayName="NRBC %" /> <statusCode code="completed" / > <effectiveTime value="163642794563" /> <value unit="/100WBC " xsi:type="PQ" value="0.0" /> <referenceRange> < observationRange> <text>0.0-0.0</text> </ observationRange> </referenceRange> </observation> </ component> <component> <observation moodCode="EVN" classCode="OBS"> <templateId root="12.02.840.1.652936.08.05.224.2" /> <id nullFlavor="NA" /> <code codeSystem="local" code="PLTT" displayName= "PLATELET COUNT" /> <statusCode code="completed" /> < effectiveTime value="250015446960" /> <value unit="k/cumm" xsi:type="PQ " value="155" /> <referenceRange> <observationRange> <text>150-400</text> </observationRange> </ referenceRange> </observation> </component> </organizer> </entry > <entry> <organizer moodCode="EVN" classCode="BATTERY"> <templateId root="12.02.840.1.572463.08.05.224.1" /> <id nullFlavor="NA" /> <code codeSystem="local" code="CBCD" displayName="CBC W/DIFF" /> <statusCode code ="completed" /> <component> <observation moodCode="EVN" classCode= "OBS"> <templateId root="12.02.840.1.258484.10.4.2" /> < id nullFlavor="NA" /> <code codeSystem="local" code="BA#" displayName= "BASOPHIL #" /> <statusCode code="completed" /> < effectiveTime value="832725427337" /> <value unit="k/cumm" xsi:type="PQ " value="0.0" /> <referenceRange> <observationRange> <text>0.0-0.2</text> </observationRange> </ referenceRange> </observation> </component> <component> <observation moodCode="EVN" classCode="OBS"> <templateId root= "216.840.1.466268.10...4.2" /> <id nullFlavor="NA" /> < code codeSystem="local" code="BA%" displayName="BASOPHIL %" /> <statusCode code="completed" /> <effectiveTime value="363296963059" /> <value unit="%" xsi:type="PQ" value="0.3" /> < referenceRange> <observationRange> <text>0-1</text> </observationRange> </referenceRange> </observation> </component> <component> <observation moodCode="EVN" classCode= "OBS"> <templateId root="216.840.1.960476.10...4.2" /> < id nullFlavor="NA" /> <code codeSystem="local" code="EO#" displayName= "EOSINOPHIL #" /> <statusCode code="completed" /> < effectiveTime value="493557397981" /> <value unit="k/cumm" xsi:type="PQ " value="0.2" /> <referenceRange> <observationRange> <text>0.1-0.5</text> </observationRange> </ referenceRange> </observation> </component> <component> <observation moodCode="EVN" classCode="OBS"> <templateId root= "216.840.1.772140.08.05.22.4.2" /> <id nullFlavor="NA" /> < code codeSystem="local" code="EO%" displayName="EOSINOPHIL %" /> <statusCode code="completed" /> <effectiveTime value="355582994108" /> <value unit="%" xsi:type="PQ" value="2.4" /> < referenceRange> <observationRange> <text>2-4</text> </observationRange> </referenceRange> </observation> </component> <component> <observation moodCode="EVN" classCode= "OBS"> <templateId root="12.02.840.1.773246.08.05.224.2" /> < id nullFlavor="NA" /> <code codeSystem="local" code="GR#" displayName= "GRANULOCYTE #" /> <statusCode code="completed" /> < effectiveTime value="961090915567" /> <value unit="k/cumm" xsi:type="PQ " value="4.3" /> <referenceRange> <observationRange> <text>2.0-9.0</text> </observationRange> </ referenceRange> </observation> </component> <component> <observation moodCode="EVN" classCode="OBS"> <templateId root= "12.02.840.1.880251.08.05.22.4.2" /> <id nullFlavor="NA" /> < code codeSystem="local" code="GR%" displayName="GRANULOCYTE %" /> <statusCode code="completed" /> <effectiveTime value="453878336790 " /> <value unit="%" xsi:type="PQ" value="64.3" /> < referenceRange> <observationRange> <text>50-75</text> </observationRange> </referenceRange> </observation> </component> <component> <observation moodCode="EVN" classCode= "OBS"> <templateId root="216.840.1.918694.104.2" /> < id nullFlavor="NA" /> <code codeSystem="local" code="LY#" displayName= "LYMPHOCYTE #" /> <statusCode code="completed" /> < effectiveTime value="040846096998" /> <value unit="k/cumm" xsi:type="PQ " value="1.8" /> <referenceRange> <observationRange> <text>1.0-4.0</text> </observationRange> </ referenceRange> </observation> </component> <component> <observation moodCode="EVN" classCode="OBS"> <templateId root= "12.02.840.1.986290.08.05.224.2" /> <id nullFlavor="NA" /> < code codeSystem="local" code="LY%" displayName="LYMPHOCYTE %" /> <statusCode code="completed" /> <effectiveTime value="403057760107" /> <value unit="%" xsi:type="PQ" value="26.5" /> < referenceRange> <observationRange> <text>20-30</text> </observationRange> </referenceRange> </observation> </component> <component> <observation moodCode="EVN" classCode= "OBS"> <templateId root="16.840.1.537369.08.05.224.2" /> < id nullFlavor="NA" /> <code codeSystem="local" code="MCH" displayName= "MEAN CELL HGB" /> <statusCode code="completed" /> < effectiveTime value="501902221713" /> <value unit="pg" xsi:type="PQ" value="30.7" /> <referenceRange> <observationRange> <text>27.0-33.0</text> </observationRange> </ referenceRange> </observation> </component> <component> <observation moodCode="EVN" classCode="OBS"> <templateId root= "216.840.1.770129.10..22.4.2" /> <id nullFlavor="NA" /> < code codeSystem="local" code="MCHC" displayName="MEAN CELL HGB CONCENTRATION" / > <statusCode code="completed" /> <effectiveTime value= "703811428726" /> <value unit="g/dL" xsi:type="PQ" value="34.2" /> <referenceRange> <observationRange> <text>32.0- 37.0</text> </observationRange> </referenceRange> </ observation> </component> <component> <observation moodCode= "EVN" classCode="OBS"> <templateId root="12.02.840.1.752526.10...4.2 " /> <id nullFlavor="NA" /> <code codeSystem="local" code="MCV " displayName="MEAN CELL VOLUME" /> <statusCode code="completed" /> <effectiveTime value="958353031372" /> <value unit="fl" xsi:type ="PQ" value="89.9" /> <referenceRange> <observationRange> <text>80.0-100.0</text> </observationRange> </ referenceRange> </observation> </component> <component> <observation moodCode="EVN" classCode="OBS"> <templateId root= "216.840.1.494284.10..22.4.2" /> <id nullFlavor="NA" /> < code codeSystem="local" code="MO#" displayName="MONOCYTE #" /> < statusCode code="completed" /> <effectiveTime value="528829712241" /> <value unit="k/cumm" xsi:type="PQ" value="0.4" /> < referenceRange> <observationRange> <text>0.1-1.0</text> </observationRange> </referenceRange> </observation > </component> <component> <observation moodCode="EVN" classCode="OBS"> <templateId root="2.16.840.1.234998.10.20.22.4.2" /> <id nullFlavor="NA" /> <code codeSystem="local" code="MO% " displayName="MONOCYTE %" /> <statusCode code="completed" /> <effectiveTime value="270241462132" /> <value unit="%" xsi: type="PQ" value="5.7" /> <referenceRange> <observationRange > <text>4-6</text> </observationRange> </ referenceRange> </observation> </component> <component> <observation moodCode="EVN" classCode="OBS"> <templateId root= "2.16.840.1.434603.10..22.4.2" /> <id nullFlavor="NA" /> < code codeSystem="local" code="MPVT" displayName="MEAN PLATELET VOLUME" /> <statusCode code="completed" /> <effectiveTime value="784572135118 " /> <value unit="fl" xsi:type="PQ" value="10.2" /> < referenceRange> <observationRange> <text>8.5-10.9</text > </observationRange> </referenceRange> </observation > </component> <component> <observation moodCode="EVN" classCode="OBS"> <templateId root="16.840.1.883211.10.20.22.4.2" /> <id nullFlavor="NA" /> <code codeSystem="local" code="RBC" displayName="RED BLOOD CELL" /> <statusCode code="completed" /> <effectiveTime value="695069206389" /> <value unit="m/cumm" xsi:type ="PQ" value="2.67" /> <interpretationCode codeSystem="local" code="*" / > <referenceRange> <observationRange> <text> 4.00-6.00</text> </observationRange> </referenceRange> </observation> </component> <component> <observation moodCode="EVN" classCode="OBS"> <templateId root= "16.840.1.685267.10..4.2" /> <id nullFlavor="NA" /> < code codeSystem="local" code="RDW" displayName="RED CELL DISTRIBUTION WIDTH" /> <statusCode code="completed" /> <effectiveTime value= "572224956219" /> <value unit="%" xsi:type="PQ" value="13.8" /> <referenceRange> <observationRange> <text>11.0- 15.6</text> </observationRange> </referenceRange> </ observation> </component> <component> <observation moodCode= "EVN" classCode="OBS"> <templateId root="12.02.840.1.665303.10..22.4.2 " /> <id nullFlavor="NA" /> <code codeSystem="local" code="WBC " displayName="WHITE BLOOD CELL" /> <statusCode code="completed" /> <effectiveTime value="[id number]" /> <value unit="k/cumm" xsi: type="PQ" value="6.6" /> <referenceRange> <observationRange > <text>5.0-10.0</text> </observationRange> </ referenceRange> </observation> </component> <component> <observation moodCode="EVN" classCode="OBS"> <templateId root= "[id number]" /> <id nullFlavor="NA" /> < code codeSystem="local" code="HGBT" displayName="HEMOGLOBIN" /> < statusCode code="completed" /> <effectiveTime value="784469318743" /> <value unit="gm/dL" xsi:type="PQ" value="8.2" /> < interpretationCode codeSystem="local" code="*" /> <referenceRange> <observationRange> <text>14.0-18.0</text> </ observationRange> </referenceRange> </observation> </ component> <component> <observation moodCode="EVN" classCode="OBS"> <templateId root="12.02.840.1.993107...4.2" /> <id nullFlavor="NA" /> <code codeSystem="local" code="HCTT" displayName= "HEMATOCRIT" /> <statusCode code="completed" /> < effectiveTime value="955814095505" /> <value unit="%" xsi:type="PQ " value="24.0" /> <interpretationCode codeSystem="local" code="*" /> <referenceRange> <observationRange> <text>40.0- 54.0</text> </observationRange> </referenceRange> </ observation> </component> <component> <observation moodCode= "EVN" classCode="OBS"> <templateId root="12.02.840.1.852563.10.20.22.4.2 " /> <id nullFlavor="NA" /> <code codeSystem="local" code= "NRBC%" displayName="NRBC %" /> <statusCode code="completed" / > <effectiveTime value="252209221910" /> <value unit="/100WBC " xsi:type="PQ" value="0.0" /> <referenceRange> < observationRange> <text>0.0-0.0</text> </ observationRange> </referenceRange> </observation> </ component> <component> <observation moodCode="EVN" classCode="OBS"> <templateId root="2.16.840.1.033692.08.05.22.4.2" /> <id nullFlavor="NA" /> <code codeSystem="local" code="PLTT" displayName= "PLATELET COUNT" /> <statusCode code="completed" /> < effectiveTime value="541836867744" /> <value unit="k/cumm" xsi:type="PQ " value="152" /> <referenceRange> <observationRange> <text>150-400</text> </observationRange> </ referenceRange> </observation> </component> <component> <observation moodCode="EVN" classCode="OBS"> <templateId root= "2.16.840.1.975347.08.05.22.4.2" /> <id nullFlavor="NA" /> < code codeSystem="local" code="IG%" displayName="IMMATURE GRANULOCYTE %" /> <statusCode code="completed" /> <effectiveTime value= "794477605031" /> <value unit="%" xsi:type="PQ" value="0.8" /> <interpretationCode codeSystem="local" code="*" /> < referenceRange> <observationRange> <text>0.0-0.6</text> </observationRange> </referenceRange> </observation > </component> <component> <observation moodCode="EVN" classCode="OBS"> <templateId root="216.840.1.203640.08.05.22.4.2" /> <id nullFlavor="NA" /> <code codeSystem="local" code="IG#" displayName="IMMATURE GRANULOCYTE #" /> <statusCode code="completed" / > <effectiveTime value="006095320044" /> <value unit="k/cumm" xsi:type="PQ" value="0.05" /> <referenceRange> < observationRange> <text>0.00-0.09</text> </ observationRange> </referenceRange> </observation> </ component> </organizer> </entry> <entry> <organizer moodCode="EVN" classCode="BATTERY"> <templateId root="16.840.1.098032.1022.4.1" /> <id nullFlavor="NA" /> <code codeSystem="local" code="METAB" displayName="METABOLIC PANEL, BASIC" /> <statusCode code="completed" /> <component> <observation moodCode="EVN" classCode="OBS"> < templateId root="216.840.1.583253.10..4.2" /> <id nullFlavor="NA " /> <code codeSystem="local" code="K" displayName="POTASSIUM" /> <statusCode code="completed" /> <effectiveTime value="985989755721 " /> <value unit="mmol/L" xsi:type="PQ" value="3.7" /> < referenceRange> <observationRange> <text>3.5-5.3</text> </observationRange> </referenceRange> </observation > </component> <component> <observation moodCode="EVN" classCode="OBS"> <templateId root="216.840.1.651530.10..22.4.2" /> <id nullFlavor="NA" /> <code codeSystem="local" code="eGFR" displayName="EST GFR (MDRD)" /> <statusCode code="completed" /> <effectiveTime value="" /> <value unit="mL/min" xsi:type ="PQ" value="> 60" /> <referenceRange> <observationRange > <text>> 59</text> </observationRange> </ referenceRange> </observation> </component> <component> <observation moodCode="EVN" classCode="OBS"> <templateId root= "216.840.1.675720....4.2" /> <id nullFlavor="NA" /> < code codeSystem="local" code="GAP" displayName="ANION GAP" /> < statusCode code="completed" /> <effectiveTime value="" /> <value unit="mmol/L" xsi:type="PQ" value="10" /> < referenceRange> <observationRange> <text>5-15</text> </observationRange> </referenceRange> </observation> </component> <component> <observation moodCode="EVN" classCode= "OBS"> <templateId root="16.840.1.746997.10..22.4.2" /> < id nullFlavor="NA" /> <code codeSystem="local" code="eCrCl" displayName ="EST CrCl (CG)" /> <statusCode code="completed" /> < effectiveTime value="247245437902" /> <value unit="mL/min" xsi:type="PQ " value="> 60" /> <referenceRange> <observationRange> <text>> 59</text> </observationRange> </ referenceRange> </observation> </component> <component> <observation moodCode="EVN" classCode="OBS"> <templateId root= "12.02.840.1.373488.10..4.2" /> <id nullFlavor="NA" /> < code codeSystem="local" code="GLU" displayName="GLUCOSE" /> < statusCode code="completed" /> <effectiveTime value="426234193090" /> <value unit="mg/dL" xsi:type="PQ" value="92" /> < referenceRange> <observationRange> <text>70-99</text> </observationRange> </referenceRange> </observation> </component> <component> <observation moodCode="EVN" classCode= "OBS"> <templateId root="840.1.447119.08.05.22.4.2" /> < id nullFlavor="NA" /> <code codeSystem="local" code="CA" displayName= "CALCIUM" /> <statusCode code="completed" /> <effectiveTime value="178736736638" /> <value unit="mg/dL" xsi:type="PQ" value="8.1" / > <interpretationCode codeSystem="local" code="*" /> < referenceRange> <observationRange> <text>8.5-10.1</text > </observationRange> </referenceRange> </observation > </component> <component> <observation moodCode="EVN" classCode="OBS"> <templateId root="12.02.840.1.328587...4.2" /> <id nullFlavor="NA" /> <code codeSystem="local" code="BUN" displayName="BLOOD UREA NITROGEN" /> <statusCode code="completed" /> <effectiveTime value="961781306582" /> <value unit="mg/dL" xsi: type="PQ" value="17" /> <referenceRange> <observationRange> <text>7-20</text> </observationRange> </ referenceRange> </observation> </component> <component> <observation moodCode="EVN" classCode="OBS"> <templateId root= "2.16.840.1.075034.10..4.2" /> <id nullFlavor="NA" /> < code codeSystem="local" code="CREAT" displayName="CREATININE" /> < statusCode code="completed" /> <effectiveTime value="435671635038" /> <value unit="mg/dL" xsi:type="PQ" value="1.1" /> < referenceRange> <observationRange> <text>0.7-1.3</text> </observationRange> </referenceRange> </observation > </component> <component> <observation moodCode="EVN" classCode="OBS"> <templateId root="216.840.1.557559.08.05.22.4.2" /> <id nullFlavor="NA" /> <code codeSystem="local" code="NA" displayName="SODIUM" /> <statusCode code="completed" /> < effectiveTime value="976302728808" /> <value unit="mmol/L" xsi:type="PQ " value="140" /> <referenceRange> <observationRange> <text>135-148</text> </observationRange> </ referenceRange> </observation> </component> <component> <observation moodCode="EVN" classCode="OBS"> <templateId root= "216.840.1.691529.10...4.2" /> <id nullFlavor="NA" /> < code codeSystem="local" code="CL" displayName="CHLORIDE" /> < statusCode code="completed" /> <effectiveTime value="423097891054" /> <value unit="mmol/L" xsi:type="PQ" value="108" /> < referenceRange> <observationRange> <text>98-110</text> </observationRange> </referenceRange> </observation> </component> <component> <observation moodCode="EVN" classCode ="OBS"> <templateId root="216.840.1.208409.08.05.22.4.2" /> < id nullFlavor="NA" /> <code codeSystem="local" code="CO2" displayName= "CARBON DIOXIDE" /> <statusCode code="completed" /> < effectiveTime value="464659562320" /> <value unit="mmol/L" xsi:type="PQ " value="22" /> <referenceRange> <observationRange> <text>21-32</text> </observationRange> </ referenceRange> </observation> </component> </organizer> </entry > <entry> <organizer moodCode="EVN" classCode="BATTERY"> <templateId root="216.840.1.626645.08.05.22.4.1" /> <id nullFlavor="NA" /> <code codeSystem="local" code="PHOS" displayName="PHOSPHORUS" /> <statusCode code ="completed" /> <component> <observation moodCode="EVN" classCode= "OBS"> <templateId root="16.840.1.134020.08.05.22.4.2" /> < id nullFlavor="NA" /> <code codeSystem="local" code="PHOS" displayName= "PHOSPHORUS" /> <statusCode code="completed" /> < effectiveTime value="452949127570" /> <value unit="mg/dL" xsi:type="PQ " value="2.5" /> <referenceRange> <observationRange> <text>2.5-4.9</text> </observationRange> </ referenceRange> </observation> </component> </organizer> </entry > <entry> <organizer moodCode="EVN" classCode="BATTERY"> <templateId root="12.02.840.1.098578.10..4.1" /> <id nullFlavor="NA" /> <code codeSystem="local" code="MAG" displayName="MAGNESIUM" /> <statusCode code= "completed" /> <component> <observation moodCode="EVN" classCode= "OBS"> <templateId root="16.840.1.551961.10..4.2" /> < id nullFlavor="NA" /> <code codeSystem="local" code="MAG" displayName= "MAGNESIUM" /> <statusCode code="completed" /> <effectiveTime value="871476294027" /> <value unit="mg/dL" xsi:type="PQ" value="1.5" / > <interpretationCode codeSystem="local" code="*" /> < referenceRange> <observationRange> <text>1.8-2.4</text> </observationRange> </referenceRange> </observation > </component> </organizer> </entry> <entry> <organizer moodCode= "EVN" classCode="BATTERY"> <templateId root="12.02.840.1.326872.08.05.22.4.1 " /> <id nullFlavor="NA" /> <code codeSystem="local" code="HH" displayName="HGB HCT" /> <statusCode code="completed" /> <component > <observation moodCode="EVN" classCode="OBS"> <templateId root= "12.02.840.1.226277.10.20.22.4.2" /> <id nullFlavor="NA" /> < code codeSystem="local" code="MCV" displayName="MEAN CELL VOLUME" /> < statusCode code="completed" /> <effectiveTime value="639531039011" /> <value unit="fl" xsi:type="PQ" value="90.9" /> <referenceRange > <observationRange> <text>80.0-100.0</text> </observationRange> </referenceRange> </observation> </ component> <component> <observation moodCode="EVN" classCode="OBS"> <templateId root="840.1.937917.1022.4.2" /> <id nullFlavor="NA" /> <code codeSystem="local" code="HGBT" displayName= "HEMOGLOBIN" /> <statusCode code="completed" /> < effectiveTime value="645342573985" /> <value unit="gm/dL" xsi:type="PQ " value="8.4" /> <interpretationCode codeSystem="local" code="*" /> <referenceRange> <observationRange> <text>14.0- 18.0</text> </observationRange> </referenceRange> </ observation> </component> <component> <observation moodCode= "EVN" classCode="OBS"> <templateId root="840.1.212188.10.2022.4.2 " /> <id nullFlavor="NA" /> <code codeSystem="local" code= "HCTT" displayName="HEMATOCRIT" /> <statusCode code="completed" /> <effectiveTime value="470939951786" /> <value unit="%" xsi: type="PQ" value="25.1" /> <interpretationCode codeSystem="local" code= "*" /> <referenceRange> <observationRange> < text>40.0-54.0</text> </observationRange> </referenceRange> </observation> </component> </organizer> </entry> <entry> < organizer moodCode="EVN" classCode="BATTERY"> <templateId root= "12.02.840.1.528790.10..4.1" /> <id nullFlavor="NA" /> <code codeSystem="local" code="RENAL" displayName="RENAL FUNCTION PANEL" /> < statusCode code="completed" /> <component> <observation moodCode= "EVN" classCode="OBS"> <templateId root="12.02.840.1.782073.10..4.2 " /> <id nullFlavor="NA" /> <code codeSystem="local" code="K" displayName="POTASSIUM" /> <statusCode code="completed" /> < effectiveTime value="940217010347" /> <value unit="mmol/L" xsi:type="PQ " value="3.5" /> <referenceRange> <observationRange> <text>3.5-5.3</text> </observationRange> </ referenceRange> </observation> </component> <component> <observation moodCode="EVN" classCode="OBS"> <templateId root= "12.02.840.1.116917.10.4.2" /> <id nullFlavor="NA" /> < code codeSystem="local" code="eGFR" displayName="EST GFR (MDRD)" /> < statusCode code="completed" /> <effectiveTime value="430776070748" /> <value unit="mL/min" xsi:type="PQ" value="58" /> < interpretationCode codeSystem="local" code="*" /> <referenceRange> <observationRange> <text>> 59</text> </ observationRange> </referenceRange> </observation> </ component> <component> <observation moodCode="EVN" classCode="OBS"> <templateId root="16.840.1.748278.10...4.2" /> <id nullFlavor="NA" /> <code codeSystem="local" code="GAP" displayName= "ANION GAP" /> <statusCode code="completed" /> <effectiveTime value="193682089277" /> <value unit="mmol/L" xsi:type="PQ" value="11" / > <referenceRange> <observationRange> <text>5- 15</text> </observationRange> </referenceRange> </ observation> </component> <component> <observation moodCode= "EVN" classCode="OBS"> <templateId root="12.02.840.1.323931.08.05.22.4.2 " /> <id nullFlavor="NA" /> <code codeSystem="local" code= "eCrCl" displayName="EST CrCl (CG)" /> <statusCode code="completed" /> <effectiveTime value="263025949908" /> <value unit="mL/min" xsi:type="PQ" value="60" /> <referenceRange> < observationRange> <text>> 59</text> </ observationRange> </referenceRange> </observation> </ component> <component> <observation moodCode="EVN" classCode="OBS"> <templateId root="12.02.840.1.901984.10...4.2" /> <id nullFlavor="NA" /> <code codeSystem="local" code="GLU" displayName= "GLUCOSE" /> <statusCode code="completed" /> <effectiveTime value="396368671701" /> <value unit="mg/dL" xsi:type="PQ" value="90" / > <referenceRange> <observationRange> <text>70- 99</text> </observationRange> </referenceRange> </ observation> </component> <component> <observation moodCode= "EVN" classCode="OBS"> <templateId root="216.840.1.569268.10..22.4.2 " /> <id nullFlavor="NA" /> <code codeSystem="local" code="CA " displayName="CALCIUM" /> <statusCode code="completed" /> < effectiveTime value="865356575737" /> <value unit="mg/dL" xsi:type="PQ " value="8.2" /> <interpretationCode codeSystem="local" code="*" /> <referenceRange> <observationRange> <text>8.5- 10.1</text> </observationRange> </referenceRange> </ observation> </component> <component> <observation moodCode= "EVN" classCode="OBS"> <templateId root="16.840.1.997419.10..22.4.2 " /> <id nullFlavor="NA" /> <code codeSystem="local" code="BUN " displayName="BLOOD UREA NITROGEN" /> <statusCode code="completed" /> <effectiveTime value="823717457581" /> <value unit="mg/dL" xsi:type="PQ" value="14" /> <referenceRange> < observationRange> <text>7-20</text> </observationRange> </referenceRange> </observation> </component> < component> <observation moodCode="EVN" classCode="OBS"> < templateId root="216.840.1.550718.10..4.2" /> <id nullFlavor="NA " /> <code codeSystem="local" code="CREAT" displayName="CREATININE" /> <statusCode code="completed" /> <effectiveTime value= "670528496182" /> <value unit="mg/dL" xsi:type="PQ" value="1.2" /> <referenceRange> <observationRange> <text>0.7-1.3< /text> </observationRange> </referenceRange> </ observation> </component> <component> <observation moodCode= "EVN" classCode="OBS"> <templateId root="2.16.840.1.198786.08.05.22.4.2 " /> <id nullFlavor="NA" /> <code codeSystem="local" code="NA " displayName="SODIUM" /> <statusCode code="completed" /> < effectiveTime value="789785108555" /> <value unit="mmol/L" xsi:type="PQ " value="141" /> <referenceRange> <observationRange> <text>135-148</text> </observationRange> </ referenceRange> </observation> </component> <component> <observation moodCode="EVN" classCode="OBS"> <templateId root= "2.16.840.1.978668.10..4.2" /> <id nullFlavor="NA" /> < code codeSystem="local" code="CL" displayName="CHLORIDE" /> < statusCode code="completed" /> <effectiveTime value="841321864023" /> <value unit="mmol/L" xsi:type="PQ" value="107" /> < referenceRange> <observationRange> <text>98-110</text> </observationRange> </referenceRange> </observation> </component> <component> <observation moodCode="EVN" classCode ="OBS"> <templateId root="16.840.1.324116.10.22.4.2" /> < id nullFlavor="NA" /> <code codeSystem="local" code="CO2" displayName= "CARBON DIOXIDE" /> <statusCode code="completed" /> < effectiveTime value="819497699674" /> <value unit="mmol/L" xsi:type="PQ " value="23" /> <referenceRange> <observationRange> <text>21-32</text> </observationRange> </ referenceRange> </observation> </component> <component> <observation moodCode="EVN" classCode="OBS"> <templateId root= "12.02.840.1.581678.08.05.22.4.2" /> <id nullFlavor="NA" /> < code codeSystem="local" code="ALB" displayName="ALBUMIN" /> < statusCode code="completed" /> <effectiveTime value="994008754701" /> <value unit="gm/dL" xsi:type="PQ" value="2.8" /> < interpretationCode codeSystem="local" code="*" /> <referenceRange> <observationRange> <text>3.4-5.0</text> </ observationRange> </referenceRange> </observation> </ component> <component> <observation moodCode="EVN" classCode="OBS"> <templateId root="12.02.840.1.695185.10.2022.4.2" /> <id nullFlavor="NA" /> <code codeSystem="local" code="PHOS" displayName= "PHOSPHORUS" /> <statusCode code="completed" /> < effectiveTime value="017054528200" /> <value unit="mg/dL" xsi:type="PQ " value="3.1" /> <referenceRange> <observationRange> <text>2.5-4.9</text> </observationRange> </ referenceRange> </observation> </component> </organizer> </entry > <entry> <organizer moodCode="EVN" classCode="BATTERY"> <templateId root="12.02.840.1.070322.10.22.4.1" /> <id nullFlavor="NA" /> <code codeSystem="local" code="MAG" displayName="MAGNESIUM" /> <statusCode code= "completed" /> <component> <observation moodCode="EVN" classCode= "OBS"> <templateId root="840.1.129380.08.05.22.4.2" /> < id nullFlavor="NA" /> <code codeSystem="local" code="MAG" displayName= "MAGNESIUM" /> <statusCode code="completed" /> <effectiveTime value="281522646965" /> <value unit="mg/dL" xsi:type="PQ" value="1.9" / > <referenceRange> <observationRange> <text>1.8 -2.4</text> </observationRange> </referenceRange> </ observation> </component> </organizer> </entry> <entry> <organizer moodCode="EVN" classCode="BATTERY"> <templateId root= "840.1.087785.08.05.22.4.1" /> <id nullFlavor="NA" /> <code codeSystem="local" code="CBCD" displayName="CBC W/DIFF" /> <statusCode code ="completed" /> <component> <observation moodCode="EVN" classCode= "OBS"> <templateId root="12.02.840.1.274821.10..22.4.2" /> < id nullFlavor="NA" /> <code codeSystem="local" code="BA#" displayName= "BASOPHIL #" /> <statusCode code="completed" /> < effectiveTime value="772584184443" /> <value unit="k/cumm" xsi:type="PQ " value="0.0" /> <referenceRange> <observationRange> <text>0.0-0.2</text> </observationRange> </ referenceRange> </observation> </component> <component> <observation moodCode="EVN" classCode="OBS"> <templateId root= "2.16.840.1.879978.10..22.4.2" /> <id nullFlavor="NA" /> < code codeSystem="local" code="BA%" displayName="BASOPHIL %" /> <statusCode code="completed" /> <effectiveTime value="192946411726" /> <value unit="%" xsi:type="PQ" value="0.2" /> < referenceRange> <observationRange> <text>0-1</text> </observationRange> </referenceRange> </observation> </component> <component> <observation moodCode="EVN" classCode= "OBS"> <templateId root="2.16.840.1.095268.10..22.4.2" /> < id nullFlavor="NA" /> <code codeSystem="local" code="EO#" displayName= "EOSINOPHIL #" /> <statusCode code="completed" /> < effectiveTime value="909540812070" /> <value unit="k/cumm" xsi:type="PQ " value="0.2" /> <referenceRange> <observationRange> <text>0.1-0.5</text> </observationRange> </ referenceRange> </observation> </component> <component> <observation moodCode="EVN" classCode="OBS"> <templateId root= "16.840.1.759331.10.20.22.4.2" /> <id nullFlavor="NA" /> < code codeSystem="local" code="EO%" displayName="EOSINOPHIL %" /> <statusCode code="completed" /> <effectiveTime value="905862584716" /> <value unit="%" xsi:type="PQ" value="2.6" /> < referenceRange> <observationRange> <text>2-4</text> </observationRange> </referenceRange> </observation> </component> <component> <observation moodCode="EVN" classCode= "OBS"> <templateId root="12.02.840.1.024797.10.2022.4.2" /> < id nullFlavor="NA" /> <code codeSystem="local" code="GR#" displayName= "GRANULOCYTE #" /> <statusCode code="completed" /> < effectiveTime value="134009216649" /> <value unit="k/cumm" xsi:type="PQ " value="4.0" /> <referenceRange> <observationRange> <text>2.0-9.0</text> </observationRange> </ referenceRange> </observation> </component> <component> <observation moodCode="EVN" classCode="OBS"> <templateId root= "12.02.840.1.360864.10.20.22.4.2" /> <id nullFlavor="NA" /> < code codeSystem="local" code="GR%" displayName="GRANULOCYTE %" /> <statusCode code="completed" /> <effectiveTime value="324878186408 " /> <value unit="%" xsi:type="PQ" value="64.9" /> < referenceRange> <observationRange> <text>50-75</text> </observationRange> </referenceRange> </observation> </component> <component> <observation moodCode="EVN" classCode= "OBS"> <templateId root="16.840.1.718702.08.05.22.4.2" /> < id nullFlavor="NA" /> <code codeSystem="local" code="LY#" displayName= "LYMPHOCYTE #" /> <statusCode code="completed" /> < effectiveTime value="661851705710" /> <value unit="k/cumm" xsi:type="PQ " value="1.5" /> <referenceRange> <observationRange> <text>1.0-4.0</text> </observationRange> </ referenceRange> </observation> </component> <component> <observation moodCode="EVN" classCode="OBS"> <templateId root= "12.02.840.1.241287.08.05.224.2" /> <id nullFlavor="NA" /> < code codeSystem="local" code="LY%" displayName="LYMPHOCYTE %" /> <statusCode code="completed" /> <effectiveTime value="476723960252" /> <value unit="%" xsi:type="PQ" value="24.1" /> < referenceRange> <observationRange> <text>20-30</text> </observationRange> </referenceRange> </observation> </component> <component> <observation moodCode="EVN" classCode= "OBS"> <templateId root="12.02.840.1.648378.10.4.2" /> < id nullFlavor="NA" /> <code codeSystem="local" code="MCH" displayName= "MEAN CELL HGB" /> <statusCode code="completed" /> < effectiveTime value="357003553714" /> <value unit="pg" xsi:type="PQ" value="31.3" /> <referenceRange> <observationRange> <text>27.0-33.0</text> </observationRange> </ referenceRange> </observation> </component> <component> <observation moodCode="EVN" classCode="OBS"> <templateId root= "16.840.1.532120.10..22.4.2" /> <id nullFlavor="NA" /> < code codeSystem="local" code="MCHC" displayName="MEAN CELL HGB CONCENTRATION" / > <statusCode code="completed" /> <effectiveTime value= "716353453764" /> <value unit="g/dL" xsi:type="PQ" value="34.9" /> <referenceRange> <observationRange> <text>32.0- 37.0</text> </observationRange> </referenceRange> </ observation> </component> <component> <observation moodCode= "EVN" classCode="OBS"> <templateId root="12.02.840.1.500470.10..22.4.2 " /> <id nullFlavor="NA" /> <code codeSystem="local" code="MCV " displayName="MEAN CELL VOLUME" /> <statusCode code="completed" /> <effectiveTime value="919370569057" /> <value unit="fl" xsi:type ="PQ" value="89.8" /> <referenceRange> <observationRange> <text>80.0-100.0</text> </observationRange> </ referenceRange> </observation> </component> <component> <observation moodCode="EVN" classCode="OBS"> <templateId root= "16.840.1.176207.10.20.22.4.2" /> <id nullFlavor="NA" /> < code codeSystem="local" code="MO#" displayName="MONOCYTE #" /> < statusCode code="completed" /> <effectiveTime value="177232752872" /> <value unit="k/cumm" xsi:type="PQ" value="0.4" /> < referenceRange> <observationRange> <text>0.1-1.0</text> </observationRange> </referenceRange> </observation > </component> <component> <observation moodCode="EVN" classCode="OBS"> <templateId root="216.840.1.967541.10.20.22.4.2" /> <id nullFlavor="NA" /> <code codeSystem="local" code="MO% " displayName="MONOCYTE %" /> <statusCode code="completed" /> <effectiveTime value="[id number]" /> <value unit="%" xsi: type="PQ" value="7.2" /> <interpretationCode codeSystem="local" code="* " /> <referenceRange> <observationRange> <text> 4-6</text> </observationRange> </referenceRange> </ observation> </component> <component> <observation moodCode= "EVN" classCode="OBS"> <templateId root="[id number] " /> <id nullFlavor="NA" /> <code codeSystem="local" code= "MPVT" displayName="MEAN PLATELET VOLUME" /> <statusCode code= "completed" /> <effectiveTime value="[id number]" /> <value unit="fl" xsi:type="PQ" value="9.8" /> <referenceRange> < observationRange> <text>8.5-10.9</text> </ observationRange> </referenceRange> </observation> </ component> <component> <observation moodCode="EVN" classCode="OBS"> <templateId root="216.840.1.547168.10..22.4.2" /> <id nullFlavor="NA" /> <code codeSystem="local" code="RBC" displayName=" RED BLOOD CELL" /> <statusCode code="completed" /> < effectiveTime value="727366195327" /> <value unit="m/cumm" xsi:type="PQ " value="2.65" /> <interpretationCode codeSystem="local" code="*" /> <referenceRange> <observationRange> <text>4.00- 6.00</text> </observationRange> </referenceRange> </ observation> </component> <component> <observation moodCode= "EVN" classCode="OBS"> <templateId root="16.840.1.333155.08.05.22.4.2 " /> <id nullFlavor="NA" /> <code codeSystem="local" code="RDW " displayName="RED CELL DISTRIBUTION WIDTH" /> <statusCode code= "completed" /> <effectiveTime value="792508083639" /> <value unit="%" xsi:type="PQ" value="13.7" /> <referenceRange> <observationRange> <text>11.0-15.6</text> </ observationRange> </referenceRange> </observation> </ component> <component> <observation moodCode="EVN" classCode="OBS"> <templateId root="216.840.1.916644.10..22.4.2" /> <id nullFlavor="NA" /> <code codeSystem="local" code="WBC" displayName= "WHITE BLOOD CELL" /> <statusCode code="completed" /> < effectiveTime value="263768514593" /> <value unit="k/cumm" xsi:type="PQ " value="6.1" /> <referenceRange> <observationRange> <text>5.0-10.0</text> </observationRange> </ referenceRange> </observation> </component> <component> <observation moodCode="EVN" classCode="OBS"> <templateId root= "216.840.1.871471...22.4.2" /> <id nullFlavor="NA" /> < code codeSystem="local" code="HGBT" displayName="HEMOGLOBIN" /> < statusCode code="completed" /> <effectiveTime value="277142880865" /> <value unit="gm/dL" xsi:type="PQ" value="8.3" /> < interpretationCode codeSystem="local" code="*" /> <referenceRange> <observationRange> <text>14.0-18.0</text> </ observationRange> </referenceRange> </observation> </ component> <component> <observation moodCode="EVN" classCode="OBS"> <templateId root="12.02.840.1.180399.22.4.2" /> <id nullFlavor="NA" /> <code codeSystem="local" code="HCTT" displayName= "HEMATOCRIT" /> <statusCode code="completed" /> < effectiveTime value="352976205773" /> <value unit="%" xsi:type="PQ " value="23.8" /> <interpretationCode codeSystem="local" code="*" /> <referenceRange> <observationRange> <text>40.0- 54.0</text> </observationRange> </referenceRange> </ observation> </component> <component> <observation moodCode= "EVN" classCode="OBS"> <templateId root="12.02.840.1.030687.08.05.22.4.2 " /> <id nullFlavor="NA" /> <code codeSystem="local" code= "NRBC%" displayName="NRBC %" /> <statusCode code="completed" / > <effectiveTime value="" /> <value unit="/100WBC " xsi:type="PQ" value="0.0" /> <referenceRange> < observationRange> <text>0.0-0.0</text> </ observationRange> </referenceRange> </observation> </ component> <component> <observation moodCode="EVN" classCode="OBS"> <templateId root="216.840.1.392851.08.05.22.4.2" /> <id nullFlavor="NA" /> <code codeSystem="local" code="PLTT" displayName= "PLATELET COUNT" /> <statusCode code="completed" /> < effectiveTime value="" /> <value unit="k/cumm" xsi:type="PQ " value="171" /> <referenceRange> <observationRange> <text>150-400</text> </observationRange> </ referenceRange> </observation> </component> <component> <observation moodCode="EVN" classCode="OBS"> <templateId root= "216.840.1.303278.08.05.22.4.2" /> <id nullFlavor="NA" /> < code codeSystem="local" code="IG%" displayName="IMMATURE GRANULOCYTE %" /> <statusCode code="completed" /> <effectiveTime value= "" /> <value unit="%" xsi:type="PQ" value="1.0" /> <interpretationCode codeSystem="local" code="*" /> < referenceRange> <observationRange> <text>0.0-0.6</text> </observationRange> </referenceRange> </observation > </component> <component> <observation moodCode="EVN" classCode="OBS"> <templateId root="12.02.840.1.817006.1022.4.2" /> <id nullFlavor="NA" /> <code codeSystem="local" code="IG#" displayName="IMMATURE GRANULOCYTE #" /> <statusCode code="completed" / > <effectiveTime value="474719439394" /> <value unit="k/cumm" xsi:type="PQ" value="0.06" /> <referenceRange> < observationRange> <text>0.00-0.09</text> </ observationRange> </referenceRange> </observation> </ component> </organizer> </entry> <entry> <organizer moodCode="EVN" classCode="BATTERY"> <templateId root="12.02.840.1.588026.1022.4.1" /> <id nullFlavor="NA" /> <code codeSystem="local" code="METAB" displayName="METABOLIC PANEL, BASIC" /> <statusCode code="completed" /> <component> <observation moodCode="EVN" classCode="OBS"> < templateId root="12.02.840.1.786633.22.4.2" /> <id nullFlavor="NA " /> <code codeSystem="local" code="K" displayName="POTASSIUM" /> <statusCode code="completed" /> <effectiveTime value="280042049279 " /> <value unit="mmol/L" xsi:type="PQ" value="3.3" /> < interpretationCode codeSystem="local" code="*" /> <referenceRange> <observationRange> <text>3.5-5.3</text> </ observationRange> </referenceRange> </observation> </ component> <component> <observation moodCode="EVN" classCode="OBS"> <templateId root="216.840.1.340063.08.05.22.4.2" /> <id nullFlavor="NA" /> <code codeSystem="local" code="eGFR" displayName= "EST GFR (MDRD)" /> <statusCode code="completed" /> < effectiveTime value="412107049324" /> <value unit="mL/min" xsi:type="PQ " value="> 60" /> <referenceRange> <observationRange> <text>> 59</text> </observationRange> </ referenceRange> </observation> </component> <component> <observation moodCode="EVN" classCode="OBS"> <templateId root= "12.02.840.1.930575.08.05.22.4.2" /> <id nullFlavor="NA" /> < code codeSystem="local" code="GAP" displayName="ANION GAP" /> < statusCode code="completed" /> <effectiveTime value="452587264541" /> <value unit="mmol/L" xsi:type="PQ" value="9" /> < referenceRange> <observationRange> <text>5-15</text> </observationRange> </referenceRange> </observation> </component> <component> <observation moodCode="EVN" classCode= "OBS"> <templateId root="16.840.1.920579.08.05.22.4.2" /> < id nullFlavor="NA" /> <code codeSystem="local" code="eCrCl" displayName ="EST CrCl (CG)" /> <statusCode code="completed" /> < effectiveTime value="445235869386" /> <value unit="mL/min" xsi:type="PQ " value="> 60" /> <referenceRange> <observationRange> <text>> 59</text> </observationRange> </ referenceRange> </observation> </component> <component> <observation moodCode="EVN" classCode="OBS"> <templateId root= "12.02.840.1.623030.10.20.22.4.2" /> <id nullFlavor="NA" /> < code codeSystem="local" code="GLU" displayName="GLUCOSE" /> < statusCode code="completed" /> <effectiveTime value="965064869360" /> <value unit="mg/dL" xsi:type="PQ" value="95" /> < referenceRange> <observationRange> <text>70-99</text> </observationRange> </referenceRange> </observation> </component> <component> <observation moodCode="EVN" classCode= "OBS"> <templateId root="840.1.966451.10...4.2" /> < id nullFlavor="NA" /> <code codeSystem="local" code="CA" displayName= "CALCIUM" /> <statusCode code="completed" /> <effectiveTime value="439540317616" /> <value unit="mg/dL" xsi:type="PQ" value="8.3" / > <interpretationCode codeSystem="local" code="*" /> < referenceRange> <observationRange> <text>8.5-10.1</text > </observationRange> </referenceRange> </observation > </component> <component> <observation moodCode="EVN" classCode="OBS"> <templateId root="12.02.840.1.617091.10.20.22.4.2" /> <id nullFlavor="NA" /> <code codeSystem="local" code="BUN" displayName="BLOOD UREA NITROGEN" /> <statusCode code="completed" /> <effectiveTime value="506928944863" /> <value unit="mg/dL" xsi: type="PQ" value="11" /> <referenceRange> <observationRange> <text>7-20</text> </observationRange> </ referenceRange> </observation> </component> <component> <observation moodCode="EVN" classCode="OBS"> <templateId root= "216.840.1.484622.10...4.2" /> <id nullFlavor="NA" /> < code codeSystem="local" code="CREAT" displayName="CREATININE" /> < statusCode code="completed" /> <effectiveTime value="790974664260" /> <value unit="mg/dL" xsi:type="PQ" value="1.1" /> < referenceRange> <observationRange> <text>0.7-1.3</text> </observationRange> </referenceRange> </observation > </component> <component> <observation moodCode="EVN" classCode="OBS"> <templateId root="216.840.1.985384.10...4.2" /> <id nullFlavor="NA" /> <code codeSystem="local" code="NA" displayName="SODIUM" /> <statusCode code="completed" /> < effectiveTime value="679911217520" /> <value unit="mmol/L" xsi:type="PQ " value="140" /> <referenceRange> <observationRange> <text>135-148</text> </observationRange> </ referenceRange> </observation> </component> <component> <observation moodCode="EVN" classCode="OBS"> <templateId root= "216840.1.684814.08.05.22.4.2" /> <id nullFlavor="NA" /> < code codeSystem="local" code="CL" displayName="CHLORIDE" /> < statusCode code="completed" /> <effectiveTime value="051557630348" /> <value unit="mmol/L" xsi:type="PQ" value="108" /> < referenceRange> <observationRange> <text>98-110</text> </observationRange> </referenceRange> </observation> </component> <component> <observation moodCode="EVN" classCode ="OBS"> <templateId root="840.1.604918.08.05.22.4.2" /> < id nullFlavor="NA" /> <code codeSystem="local" code="CO2" displayName= "CARBON DIOXIDE" /> <statusCode code="completed" /> < effectiveTime value="634098230437" /> <value unit="mmol/L" xsi:type="PQ " value="23" /> <referenceRange> <observationRange> <text>21-32</text> </observationRange> </ referenceRange> </observation> </component> </organizer> </entry > <entry> <organizer moodCode="EVN" classCode="BATTERY"> <templateId root="840.1.685669.08.05.22.4.1" /> <id nullFlavor="NA" /> <code codeSystem="local" code="PHOS" displayName="PHOSPHORUS" /> <statusCode code ="completed" /> <component> <observation moodCode="EVN" classCode= "OBS"> <templateId root="12.02.840.1.997957.22.4.2" /> < id nullFlavor="NA" /> <code codeSystem="local" code="PHOS" displayName= "PHOSPHORUS" /> <statusCode code="completed" /> < effectiveTime value="629463792462" /> <value unit="mg/dL" xsi:type="PQ " value="3.5" /> <referenceRange> <observationRange> <text>2.5-4.9</text> </observationRange> </ referenceRange> </observation> </component> </organizer> </entry > <entry> <organizer moodCode="EVN" classCode="BATTERY"> <templateId root="12.02.840.1.438591.10..22.4.1" /> <id nullFlavor="NA" /> <code codeSystem="local" code="MAG" displayName="MAGNESIUM" /> <statusCode code= "completed" /> <component> <observation moodCode="EVN" classCode= "OBS"> <templateId root="12.02.840.1.349630.10..22.4.2" /> < id nullFlavor="NA" /> <code codeSystem="local" code="MAG" displayName= "MAGNESIUM" /> <statusCode code="completed" /> <effectiveTime value="742139394475" /> <value unit="mg/dL" xsi:type="PQ" value="1.7" / > <interpretationCode codeSystem="local" code="*" /> < referenceRange> <observationRange> <text>1.8-2.4</text> </observationRange> </referenceRange> </observation > </component> </organizer> </entry> <entry> <organizer moodCode= "EVN" classCode="BATTERY"> <templateId root="12.02.840.1.485234.10.20.22.4.1 " /> <id nullFlavor="NA" /> <code codeSystem="local" code="CBCD" displayName="CBC W/DIFF" /> <statusCode code="completed" /> <component > <observation moodCode="EVN" classCode="OBS"> <templateId root= "216.840.1.463801.10.4.2" /> <id nullFlavor="NA" /> < code codeSystem="local" code="BA#" displayName="BASOPHIL #" /> < statusCode code="completed" /> <effectiveTime value="" /> <value unit="k/cumm" xsi:type="PQ" value="0.0" /> < referenceRange> <observationRange> <text>0.0-0.2</text> </observationRange> </referenceRange> </observation > </component> <component> <observation moodCode="EVN" classCode="OBS"> <templateId root="12.02.840.1.345905.08.05.224.2" /> <id nullFlavor="NA" /> <code codeSystem="local" code="BA% " displayName="BASOPHIL %" /> <statusCode code="completed" /> <effectiveTime value="" /> <value unit="%" xsi: type="PQ" value="0.3" /> <referenceRange> <observationRange > <text>0-1</text> </observationRange> </ referenceRange> </observation> </component> <component> <observation moodCode="EVN" classCode="OBS"> <templateId root= "16.840.1.117221.10.4.2" /> <id nullFlavor="NA" /> < code codeSystem="local" code="EO#" displayName="EOSINOPHIL #" /> < statusCode code="completed" /> <effectiveTime value="" /> <value unit="k/cumm" xsi:type="PQ" value="0.2" /> < referenceRange> <observationRange> <text>0.1-0.5</text> </observationRange> </referenceRange> </observation > </component> <component> <observation moodCode="EVN" classCode="OBS"> <templateId root="216.840.1.824793.10...4.2" /> <id nullFlavor="NA" /> <code codeSystem="local" code="EO% " displayName="EOSINOPHIL %" /> <statusCode code="completed" /> <effectiveTime value="" /> <value unit="%" xsi: type="PQ" value="2.5" /> <referenceRange> <observationRange > <text>2-4</text> </observationRange> </ referenceRange> </observation> </component> <component> <observation moodCode="EVN" classCode="OBS"> <templateId root= "12.02.840.1.927721.10..4.2" /> <id nullFlavor="NA" /> < code codeSystem="local" code="GR#" displayName="GRANULOCYTE #" /> < statusCode code="completed" /> <effectiveTime value="" /> <value unit="k/cumm" xsi:type="PQ" value="3.8" /> < referenceRange> <observationRange> <text>2.0-9.0</text> </observationRange> </referenceRange> </observation > </component> <component> <observation moodCode="EVN" classCode="OBS"> <templateId root="12.02.840.1.284779.10.20.22.4.2" /> <id nullFlavor="NA" /> <code codeSystem="local" code="GR% " displayName="GRANULOCYTE %" /> <statusCode code="completed" /> <effectiveTime value="" /> <value unit="%" xsi: type="PQ" value="63.4" /> <referenceRange> <observationRange > <text>50-75</text> </observationRange> </ referenceRange> </observation> </component> <component> <observation moodCode="EVN" classCode="OBS"> <templateId root= "216.840.1.709342.10.20.22.4.2" /> <id nullFlavor="NA" /> < code codeSystem="local" code="LY#" displayName="LYMPHOCYTE #" /> < statusCode code="completed" /> <effectiveTime value="" /> <value unit="k/cumm" xsi:type="PQ" value="1.6" /> < referenceRange> <observationRange> <text>1.0-4.0</text> </observationRange> </referenceRange> </observation > </component> <component> <observation moodCode="EVN" classCode="OBS"> <templateId root="216.840.1.798394.10.20.22.4.2" /> <id nullFlavor="NA" /> <code codeSystem="local" code="LY% " displayName="LYMPHOCYTE %" /> <statusCode code="completed" /> <effectiveTime value="" /> <value unit="%" xsi: type="PQ" value="26.2" /> <referenceRange> <observationRange > <text>20-30</text> </observationRange> </ referenceRange> </observation> </component> <component> <observation moodCode="EVN" classCode="OBS"> <templateId root= "216.840.1.996953.10..22.4.2" /> <id nullFlavor="NA" /> < code codeSystem="local" code="MCH" displayName="MEAN CELL HGB" /> < statusCode code="completed" /> <effectiveTime value="" /> <value unit="pg" xsi:type="PQ" value="30.3" /> <referenceRange > <observationRange> <text>27.0-33.0</text> < /observationRange> </referenceRange> </observation> </ component> <component> <observation moodCode="EVN" classCode="OBS"> <templateId root="12.02.840.1.271852.10..4.2" /> <id nullFlavor="NA" /> <code codeSystem="local" code="MCHC" displayName= "MEAN CELL HGB CONCENTRATION" /> <statusCode code="completed" /> <effectiveTime value="" /> <value unit="g/dL" xsi:type= "PQ" value="33.7" /> <referenceRange> <observationRange> <text>32.0-37.0</text> </observationRange> </ referenceRange> </observation> </component> <component> <observation moodCode="EVN" classCode="OBS"> <templateId root= "12.02.840.1.738431.10..22.4.2" /> <id nullFlavor="NA" /> < code codeSystem="local" code="MCV" displayName="MEAN CELL VOLUME" /> < statusCode code="completed" /> <effectiveTime value="" /> <value unit="fl" xsi:type="PQ" value="89.8" /> <referenceRange > <observationRange> <text>80.0-100.0</text> </observationRange> </referenceRange> </observation> </ component> <component> <observation moodCode="EVN" classCode="OBS"> <templateId root="2.16.840.1.871565.10.22.4.2" /> <id nullFlavor="NA" /> <code codeSystem="local" code="MO#" displayName= "MONOCYTE #" /> <statusCode code="completed" /> < effectiveTime value="" /> <value unit="k/cumm" xsi:type="PQ " value="0.4" /> <referenceRange> <observationRange> <text>0.1-1.0</text> </observationRange> </ referenceRange> </observation> </component> <component> <observation moodCode="EVN" classCode="OBS"> <templateId root= "216.840.1.246317.08.05.224.2" /> <id nullFlavor="NA" /> < code codeSystem="local" code="MO%" displayName="MONOCYTE %" /> <statusCode code="completed" /> <effectiveTime value="" /> <value unit="%" xsi:type="PQ" value="6.6" /> < interpretationCode codeSystem="local" code="*" /> <referenceRange> <observationRange> <text>4-6</text> </ observationRange> </referenceRange> </observation> </ component> <component> <observation moodCode="EVN" classCode="OBS"> <templateId root="216.840.1.481364.08.05.22.4.2" /> <id nullFlavor="NA" /> <code codeSystem="local" code="MPVT" displayName= "MEAN PLATELET VOLUME" /> <statusCode code="completed" /> < effectiveTime value="" /> <value unit="fl" xsi:type="PQ" value="9.5" /> <referenceRange> <observationRange> <text>8.5-10.9</text> </observationRange> </ referenceRange> </observation> </component> <component> <observation moodCode="EVN" classCode="OBS"> <templateId root= "216.840.1.092263.10.2022.4.2" /> <id nullFlavor="NA" /> < code codeSystem="local" code="RBC" displayName="RED BLOOD CELL" /> < statusCode code="completed" /> <effectiveTime value="" /> <value unit="m/cumm" xsi:type="PQ" value="2.94" /> < interpretationCode codeSystem="local" code="*" /> <referenceRange> <observationRange> <text>4.00-6.00</text> </ observationRange> </referenceRange> </observation> </ component> <component> <observation moodCode="EVN" classCode="OBS"> <templateId root="216.840.1.089646.10.2022.4.2" /> <id nullFlavor="NA" /> <code codeSystem="local" code="RDW" displayName=" RED CELL DISTRIBUTION WIDTH" /> <statusCode code="completed" /> <effectiveTime value="" /> <value unit="%" xsi:type= "PQ" value="13.9" /> <referenceRange> <observationRange> <text>11.0-15.6</text> </observationRange> </ referenceRange> </observation> </component> <component> <observation moodCode="EVN" classCode="OBS"> <templateId root= "12.02.840.1.031667.102022.4.2" /> <id nullFlavor="NA" /> < code codeSystem="local" code="WBC" displayName="WHITE BLOOD CELL" /> < statusCode code="completed" /> <effectiveTime value="" /> <value unit="k/cumm" xsi:type="PQ" value="6.0" /> < referenceRange> <observationRange> <text>5.0-10.0</text > </observationRange> </referenceRange> </observation > </component> <component> <observation moodCode="EVN" classCode="OBS"> <templateId root="840.1.630092.22.4.2" /> <id nullFlavor="NA" /> <code codeSystem="local" code="HGBT" displayName="HEMOGLOBIN" /> <statusCode code="completed" /> < effectiveTime value="" /> <value unit="gm/dL" xsi:type="PQ " value="8.9" /> <interpretationCode codeSystem="local" code="*" /> <referenceRange> <observationRange> <text>14.0- 18.0</text> </observationRange> </referenceRange> </ observation> </component> <component> <observation moodCode= "EVN" classCode="OBS"> <templateId root="12.02.840.1.443976.10.2022.4.2 " /> <id nullFlavor="NA" /> <code codeSystem="local" code= "HCTT" displayName="HEMATOCRIT" /> <statusCode code="completed" /> <effectiveTime value="" /> <value unit="%" xsi: type="PQ" value="26.4" /> <interpretationCode codeSystem="local" code= "*" /> <referenceRange> <observationRange> < text>40.0-54.0</text> </observationRange> </referenceRange> </observation> </component> <component> <observation moodCode="EVN" classCode="OBS"> <templateId root= "216.840.1.038127.10.20.22.4.2" /> <id nullFlavor="NA" /> < code codeSystem="local" code="NRBC%" displayName="NRBC %" /> < statusCode code="completed" /> <effectiveTime value="" /> <value unit="/100WBC" xsi:type="PQ" value="0.0" /> < referenceRange> <observationRange> <text>0.0-0.0</text> </observationRange> </referenceRange> </observation > </component> <component> <observation moodCode="EVN" classCode="OBS"> <templateId root="840.1.705563.10.22.4.2" /> <id nullFlavor="NA" /> <code codeSystem="local" code="PLTT" displayName="PLATELET COUNT" /> <statusCode code="completed" /> <effectiveTime value="" /> <value unit="k/cumm" xsi:type ="PQ" value="231" /> <referenceRange> <observationRange> <text>150-400</text> </observationRange> </ referenceRange> </observation> </component> <component> <observation moodCode="EVN" classCode="OBS"> <templateId root= "12.02.840.1.192881.10.20.22.4.2" /> <id nullFlavor="NA" /> < code codeSystem="local" code="IG%" displayName="IMMATURE GRANULOCYTE %" /> <statusCode code="completed" /> <effectiveTime value= "" /> <value unit="%" xsi:type="PQ" value="1.0" /> <interpretationCode codeSystem="local" code="*" /> < referenceRange> <observationRange> <text>0.0-0.6</text> </observationRange> </referenceRange> </observation > </component> <component> <observation moodCode="EVN" classCode="OBS"> <templateId root="840.1.855145.08.05.22.4.2" /> <id nullFlavor="NA" /> <code codeSystem="local" code="IG#" displayName="IMMATURE GRANULOCYTE #" /> <statusCode code="completed" / > <effectiveTime value="" /> <value unit="k/cumm" xsi:type="PQ" value="0.06" /> <referenceRange> < observationRange> <text>0.00-0.09</text> </ observationRange> </referenceRange> </observation> </ component> </organizer> </entry> <entry> <organizer moodCode="EVN" classCode="BATTERY"> <templateId root="12.02.840.1.385506.08.05.22.4.1" /> <id nullFlavor="NA" /> <code codeSystem="local" code="METAB" displayName="METABOLIC PANEL, BASIC" /> <statusCode code="completed" /> <component> <observation moodCode="EVN" classCode="OBS"> < templateId root="840.1.909162.08.05.22.4.2" /> <id nullFlavor="NA " /> <code codeSystem="local" code="K" displayName="POTASSIUM" /> <statusCode code="completed" /> <effectiveTime value=" " /> <value unit="mmol/L" xsi:type="PQ" value="3.7" /> < referenceRange> <observationRange> <text>3.5-5.3</text> </observationRange> </referenceRange> </observation > </component> <component> <observation moodCode="EVN" classCode="OBS"> <templateId root="12.02.840.1.227601.10..4.2" /> <id nullFlavor="NA" /> <code codeSystem="local" code="eGFR" displayName="EST GFR (MDRD)" /> <statusCode code="completed" /> <effectiveTime value="" /> <value unit="mL/min" xsi:type ="PQ" value="> 60" /> <referenceRange> <observationRange > <text>> 59</text> </observationRange> </ referenceRange> </observation> </component> <component> <observation moodCode="EVN" classCode="OBS"> <templateId root= "12.02.840.1.131325.08.05.22.4.2" /> <id nullFlavor="NA" /> < code codeSystem="local" code="GAP" displayName="ANION GAP" /> < statusCode code="completed" /> <effectiveTime value="" /> <value unit="mmol/L" xsi:type="PQ" value="9" /> < referenceRange> <observationRange> <text>5-15</text> </observationRange> </referenceRange> </observation> </component> <component> <observation moodCode="EVN" classCode= "OBS"> <templateId root="16.840.1.197655.10..22.4.2" /> < id nullFlavor="NA" /> <code codeSystem="local" code="eCrCl" displayName ="EST CrCl (CG)" /> <statusCode code="completed" /> < effectiveTime value="" /> <value unit="mL/min" xsi:type="PQ " value="> 60" /> <referenceRange> <observationRange> <text>> 59</text> </observationRange> </ referenceRange> </observation> </component> <component> <observation moodCode="EVN" classCode="OBS"> <templateId root= "2.16.840.1.541076.10..22.4.2" /> <id nullFlavor="NA" /> < code codeSystem="local" code="GLU" displayName="GLUCOSE" /> < statusCode code="completed" /> <effectiveTime value="" /> <value unit="mg/dL" xsi:type="PQ" value="101" /> < interpretationCode codeSystem="local" code="*" /> <referenceRange> <observationRange> <text>70-99</text> </ observationRange> </referenceRange> </observation> </ component> <component> <observation moodCode="EVN" classCode="OBS"> <templateId root="2.16.840.1.100873.10..22.4.2" /> <id nullFlavor="NA" /> <code codeSystem="local" code="CA" displayName= "CALCIUM" /> <statusCode code="completed" /> <effectiveTime value="" /> <value unit="mg/dL" xsi:type="PQ" value="8.6" / > <referenceRange> <observationRange> <text>8.5 -10.1</text> </observationRange> </referenceRange> </ observation> </component> <component> <observation moodCode= "EVN" classCode="OBS"> <templateId root="216.840.1.592296.10..22.4.2 " /> <id nullFlavor="NA" /> <code codeSystem="local" code="BUN " displayName="BLOOD UREA NITROGEN" /> <statusCode code="completed" /> <effectiveTime value="" /> <value unit="mg/dL" xsi:type="PQ" value="9" /> <referenceRange> < observationRange> <text>7-20</text> </observationRange> </referenceRange> </observation> </component> < component> <observation moodCode="EVN" classCode="OBS"> < templateId root="216.840.1.921065.10..22.4.2" /> <id nullFlavor="NA " /> <code codeSystem="local" code="CREAT" displayName="CREATININE" /> <statusCode code="completed" /> <effectiveTime value= "" /> <value unit="mg/dL" xsi:type="PQ" value="1.1" /> <referenceRange> <observationRange> <text>0.7-1.3< /text> </observationRange> </referenceRange> </ observation> </component> <component> <observation moodCode= "EVN" classCode="OBS"> <templateId root="16.840.1.180481.10.20.22.4.2 " /> <id nullFlavor="NA" /> <code codeSystem="local" code="NA " displayName="SODIUM" /> <statusCode code="completed" /> < effectiveTime value="" /> <value unit="mmol/L" xsi:type="PQ " value="142" /> <referenceRange> <observationRange> <text>135-148</text> </observationRange> </ referenceRange> </observation> </component> <component> <observation moodCode="EVN" classCode="OBS"> <templateId root= "2.16.840.1.772937.10..4.2" /> <id nullFlavor="NA" /> < code codeSystem="local" code="CL" displayName="CHLORIDE" /> < statusCode code="completed" /> <effectiveTime value="" /> <value unit="mmol/L" xsi:type="PQ" value="110" /> < referenceRange> <observationRange> <text>98-110</text> </observationRange> </referenceRange> </observation> </component> <component> <observation moodCode="EVN" classCode ="OBS"> <templateId root="216.840.1.205715.08.05.22.4.2" /> < id nullFlavor="NA" /> <code codeSystem="local" code="CO2" displayName= "CARBON DIOXIDE" /> <statusCode code="completed" /> < effectiveTime value="" /> <value unit="mmol/L" xsi:type="PQ " value="23" /> <referenceRange> <observationRange> <text>21-32</text> </observationRange> </ referenceRange> </observation> </component> </organizer> </entry > <entry> <organizer moodCode="EVN" classCode="BATTERY"> <templateId root="216.840.1.239784.10...4.1" /> <id nullFlavor="NA" /> <code codeSystem="local" code="MAG" displayName="MAGNESIUM" /> <statusCode code= "completed" /> <component> <observation moodCode="EVN" classCode= "OBS"> <templateId root="216.840.1.955578.10.20.22.4.2" /> < id nullFlavor="NA" /> <code codeSystem="local" code="MAG" displayName= "MAGNESIUM" /> <statusCode code="completed" /> <effectiveTime value="[id number]" /> <value unit="mg/dL" xsi:type="PQ" value="2.1" / > <referenceRange> <observationRange> <text>1.8 -2.4</text> </observationRange> </referenceRange> </ observation> </component> </organizer> </entry> <entry> <organizer moodCode="EVN" classCode="BATTERY"> <templateId root= "216.840.1.090907.10.20.22.4.1" /> <id nullFlavor="NA" /> <code codeSystem="local" code="77528-1" displayName="Complete blood count (CBC) with automated white blood cell (WBC) differential" /> <statusCode code= "completed" /> <component> <observation moodCode="EVN" classCode= "OBS"> <templateId root="16.840.1.963999.10.20.22.4.2" /> < id nullFlavor="NA" /> <code codeSystem="local" code="6690-2" displayName="Blood leukocytes automated count (number/volume)" /> < statusCode code="completed" /> <effectiveTime value="[id number]" /> <value unit="10*3/uL" xsi:type="PQ" value="7.5" /> < referenceRange> <observationRange> <text>4.3-11.0</text > </observationRange> </referenceRange> </observation > </component> <component> <observation moodCode="EVN" classCode="OBS"> <templateId root="840.1.180222.10.20.22.4.2" /> <id nullFlavor="NA" /> <code codeSystem="local" code="789-8" displayName="Blood erythrocytes automated count (number/volume)" /> < statusCode code="completed" /> <effectiveTime value="" /> <value unit="10*6/uL" xsi:type="PQ" value="4.81" /> < referenceRange> <observationRange> <text>4.35-5.85</text > </observationRange> </referenceRange> </observation > </component> <component> <observation moodCode="EVN" classCode="OBS"> <templateId root="216.840.1.817318.10.20.22.4.2" /> <id nullFlavor="NA" /> <code codeSystem="local" code="09757-2 " displayName="Venous blood hemoglobin measurement (mass/volume)" /> < statusCode code="completed" /> <effectiveTime value="" /> <value unit="g/dL" xsi:type="PQ" value="14.9" /> < referenceRange> <observationRange> <text>13.3-17.7</text > </observationRange> </referenceRange> </observation > </component> <component> <observation moodCode="EVN" classCode="OBS"> <templateId root="2.16.840.1.335653.10.20.22.4.2" /> <id nullFlavor="NA" /> <code codeSystem="local" code="96949-4 " displayName="Blood hematocrit (volume fraction)" /> <statusCode code= "completed" /> <effectiveTime value="" /> <value unit="%" xsi:type="PQ" value="42" /> <referenceRange> < observationRange> <text>40-54</text> </observationRange > </referenceRange> </observation> </component> < component> <observation moodCode="EVN" classCode="OBS"> < templateId root="12.02.840.1.601178.10.20.22.4.2" /> <id nullFlavor="NA " /> <code codeSystem="local" code="787-2" displayName="Automated erythrocyte mean corpuscular volume" /> <statusCode code="completed" / > <effectiveTime value="" /> <value unit="[foz_us] " xsi:type="PQ" value="88" /> <referenceRange> < observationRange> <text>80-99</text> </observationRange > </referenceRange> </observation> </component> < component> <observation moodCode="EVN" classCode="OBS"> < templateId root="12.02.840.1.013519.10..22.4.2" /> <id nullFlavor="NA " /> <code codeSystem="local" code="785-6" displayName="Automated erythrocyte mean corpuscular hemoglobin (mass per erythrocyte)" /> < statusCode code="completed" /> <effectiveTime value="" /> <value unit="pg" xsi:type="PQ" value="31" /> <referenceRange> <observationRange> <text>25-34</text> </ observationRange> </referenceRange> </observation> </ component> <component> <observation moodCode="EVN" classCode="OBS"> <templateId root="12.02.840.1.818254.10.20.22.4.2" /> <id nullFlavor="NA" /> <code codeSystem="local" code="786-4" displayName= "Automated erythrocyte mean corpuscular hemoglobin concentration measurement ( mass/volume)" /> <statusCode code="completed" /> < effectiveTime value="" /> <value unit="g/dL" xsi:type="PQ" value="35" /> <referenceRange> <observationRange> <text>32-36</text> </observationRange> </referenceRange > </observation> </component> <component> <observation moodCode="EVN" classCode="OBS"> <templateId root= "2.16.840.1.606628.10.20.22.4.2" /> <id nullFlavor="NA" /> < code codeSystem="local" code="788-0" displayName="Automated erythrocyte distribution width ratio" /> <statusCode code="completed" /> < effectiveTime value="" /> <value unit="%" xsi:type="PQ " value="14.7" /> <interpretationCode codeSystem="local" code="" /> <referenceRange> <observationRange> <text>10.0- 14.5</text> </observationRange> </referenceRange> </ observation> </component> <component> <observation moodCode= "EVN" classCode="OBS"> <templateId root="2.16.840.1.856034.10.20.22.4.2 " /> <id nullFlavor="NA" /> <code codeSystem="local" code="777 -3" displayName="Automated blood platelet count (count/volume)" /> < statusCode code="completed" /> <effectiveTime value="" /> <value unit="10*3/uL" xsi:type="PQ" value="238" /> < referenceRange> <observationRange> <text>130-400</text> </observationRange> </referenceRange> </observation > </component> <component> <observation moodCode="EVN" classCode="OBS"> <templateId root="2.16.840.1.146558.10.20.22.4.2" /> <id nullFlavor="NA" /> <code codeSystem="local" code="60492-6 " displayName="Automated blood platelet mean volume measurement" /> < statusCode code="completed" /> <effectiveTime value="" /> <value unit="[foz_us]" xsi:type="PQ" value="9.9" /> < referenceRange> <observationRange> <text>7.4-10.4</text > </observationRange> </referenceRange> </observation > </component> <component> <observation moodCode="EVN" classCode="OBS"> <templateId root="2.16.840.1.534482..22.4.2" /> <id nullFlavor="NA" /> <code codeSystem="local" code="770-8" displayName="Automated blood neutrophils/100 leukocytes" /> < statusCode code="completed" /> <effectiveTime value="" /> <value unit="%" xsi:type="PQ" value="61" /> < referenceRange> <observationRange> <text>42-75</text> </observationRange> </referenceRange> </observation> </component> <component> <observation moodCode="EVN" classCode= "OBS"> <templateId root="216.840.1.624596.10.20.22.4.2" /> < id nullFlavor="NA" /> <code codeSystem="local" code="736-9" displayName ="Automated blood lymphocytes/100 leukocytes" /> <statusCode code= "completed" /> <effectiveTime value="" /> <value unit="%" xsi:type="PQ" value="28" /> <referenceRange> < observationRange> <text>12-44</text> </observationRange > </referenceRange> </observation> </component> < component> <observation moodCode="EVN" classCode="OBS"> < templateId root="2.16.840.1.525417.10.20.22.4.2" /> <id nullFlavor="NA " /> <code codeSystem="local" code="34287-2" displayName="Blood monocytes/100 leukocytes" /> <statusCode code="completed" /> < effectiveTime value="781516176743" /> <value unit="%" xsi:type="PQ " value="8" /> <referenceRange> <observationRange> <text>0-12</text> </observationRange> </referenceRange > </observation> </component> <component> <observation moodCode="EVN" classCode="OBS"> <templateId root= "216.840.1.405503.10.20.22.4.2" /> <id nullFlavor="NA" /> < code codeSystem="local" code="713-8" displayName="Automated blood eosinophils/ 100 leukocytes" /> <statusCode code="completed" /> < effectiveTime value="857978098820" /> <value unit="%" xsi:type="PQ " value="3" /> <referenceRange> <observationRange> <text>0-10</text> </observationRange> </referenceRange > </observation> </component> <component> <observation moodCode="EVN" classCode="OBS"> <templateId root= "2.16.840.1.173574.10.20.22.4.2" /> <id nullFlavor="NA" /> < code codeSystem="local" code="706-2" displayName="Automated blood basophils/100 leukocytes" /> <statusCode code="completed" /> <effectiveTime value="" /> <value unit="%" xsi:type="PQ" value="0" /> <referenceRange> <observationRange> <text>0-10 </text> </observationRange> </referenceRange> </ observation> </component> <component> <observation moodCode= "EVN" classCode="OBS"> <templateId root="2.16.840.1.651687.10.20.22.4.2 " /> <id nullFlavor="NA" /> <code codeSystem="local" code="751 -8" displayName="Blood neutrophils automated count (number/volume)" /> <statusCode code="completed" /> <effectiveTime value="103578206941" /> <value unit="10*3" xsi:type="PQ" value="4.6" /> < referenceRange> <observationRange> <text>1.8-7.8</text> </observationRange> </referenceRange> </observation > </component> <component> <observation moodCode="EVN" classCode="OBS"> <templateId root="2.16.840.1.716278.10.20.22.4.2" /> <id nullFlavor="NA" /> <code codeSystem="local" code="731-0" displayName="Blood lymphocytes automated count (number/volume)" /> < statusCode code="completed" /> <effectiveTime value="645206694029" /> <value unit="10*3" xsi:type="PQ" value="2.1" /> < referenceRange> <observationRange> <text>1.0-4.0</text> </observationRange> </referenceRange> </observation > </component> <component> <observation moodCode="EVN" classCode="OBS"> <templateId root="216.840.1.729894.10.20.22.4.2" /> <id nullFlavor="NA" /> <code codeSystem="local" code="742-7" displayName="Blood monocytes automated count (number/volume)" /> < statusCode code="completed" /> <effectiveTime value="" /> <value unit="10*3" xsi:type="PQ" value="0.6" /> < referenceRange> <observationRange> <text>0.0-1.0</text> </observationRange> </referenceRange> </observation > </component> <component> <observation moodCode="EVN" classCode="OBS"> <templateId root="16.840.1.089646.22.4.2" /> <id nullFlavor="NA" /> <code codeSystem="local" code="711-2" displayName="Automated eosinophil count" /> <statusCode code="completed " /> <effectiveTime value="" /> <value unit="10*3/ uL" xsi:type="PQ" value="0.2" /> <referenceRange> < observationRange> <text>0.0-0.3</text> </ observationRange> </referenceRange> </observation> </ component> <component> <observation moodCode="EVN" classCode="OBS"> <templateId root="16.840.1.485877.10.2022.4.2" /> <id nullFlavor="NA" /> <code codeSystem="local" code="704-7" displayName= "Automated blood basophil count (count/volume)" /> <statusCode code= "completed" /> <effectiveTime value="" /> <value unit="10*3/uL" xsi:type="PQ" value="0.0" /> <referenceRange> <observationRange> <text>0.0-0.1</text> </ observationRange> </referenceRange> </observation> </ component> </organizer> </entry> <entry> <organizer moodCode="EVN" classCode="BATTERY"> <templateId root="2.16.840.1.628721.10..22.4.1" /> <id nullFlavor="NA" /> <code codeSystem="local" code="33900-3" displayName="Comprehensive metabolic panel" /> <statusCode code="completed " /> <component> <observation moodCode="EVN" classCode="OBS"> <templateId root="2.16.840.1.126334.10..22.4.2" /> <id nullFlavor ="NA" /> <code codeSystem="local" code="2951-2" displayName="Serum or plasma sodium measurement (moles/volume)" /> <statusCode code= "completed" /> <effectiveTime value="" /> <value unit="mmol/L" xsi:type="PQ" value="141" /> <referenceRange> <observationRange> <text>135-145</text> </ observationRange> </referenceRange> </observation> </ component> <component> <observation moodCode="EVN" classCode="OBS"> <templateId root="216.840.1.294256.10..22.4.2" /> <id nullFlavor="NA" /> <code codeSystem="local" code="2823-3" displayName= "Serum or plasma potassium measurement (moles/volume)" /> <statusCode code="completed" /> <effectiveTime value="" /> < value unit="mmol/L" xsi:type="PQ" value="3.5" /> <interpretationCode codeSystem="local" code="" /> <referenceRange> < observationRange> <text>3.6-5.0</text> </ observationRange> </referenceRange> </observation> </ component> <component> <observation moodCode="EVN" classCode="OBS"> <templateId root="2.16.840.1.586419.10..4.2" /> <id nullFlavor="NA" /> <code codeSystem="local" code="" displayName= "Serum or plasma chloride measurement (moles/volume)" /> <statusCode code="completed" /> <effectiveTime value="" /> < value unit="mmol/L" xsi:type="PQ" value="109" /> <interpretationCode codeSystem="local" code="" /> <referenceRange> < observationRange> <text>98-107</text> </observationRange > </referenceRange> </observation> </component> < component> <observation moodCode="EVN" classCode="OBS"> < templateId root="2.16.840.1.873594.08.05.22.4.2" /> <id nullFlavor="NA " /> <code codeSystem="local" code="2028-06" displayName="Carbon dioxide " /> <statusCode code="completed" /> <effectiveTime value= "" /> <value unit="mmol/L" xsi:type="PQ" value="20" /> <interpretationCode codeSystem="local" code="" /> < referenceRange> <observationRange> <text>21-32</text> </observationRange> </referenceRange> </observation> </component> <component> <observation moodCode="EVN" classCode= "OBS"> <templateId root="2.16.840.1.885944.10..22.4.2" /> < id nullFlavor="NA" /> <code codeSystem="local" code="21835-4" displayName="Serum or plasma anion gap determination (moles/volume)" /> <statusCode code="completed" /> <effectiveTime value="717545112253" / > <value unit="mmol/L" xsi:type="PQ" value="12" /> < referenceRange> <observationRange> <text>5-14</text> </observationRange> </referenceRange> </observation> </component> <component> <observation moodCode="EVN" classCode= "OBS"> <templateId root="2.16.840.1.187566.10..22.4.2" /> < id nullFlavor="NA" /> <code codeSystem="local" code="3094-0" displayName="Serum or plasma urea nitrogen measurement (mass/volume)" /> <statusCode code="completed" /> <effectiveTime value="" /> <value unit="mg/dL" xsi:type="PQ" value="15" /> < referenceRange> <observationRange> <text>7-18</text> </observationRange> </referenceRange> </observation> </component> <component> <observation moodCode="EVN" classCode= "OBS"> <templateId root="2.16.840.1.762520.10..22.4.2" /> < id nullFlavor="NA" /> <code codeSystem="local" code="2160-0" displayName="Serum or plasma creatinine measurement (mass/volume)" /> < statusCode code="completed" /> <effectiveTime value="225192206562" /> <value unit="mg/dL" xsi:type="PQ" value="1.10" /> < referenceRange> <observationRange> <text>0.60-1.30</text > </observationRange> </referenceRange> </observation > </component> <component> <observation moodCode="EVN" classCode="OBS"> <templateId root="2.16.840.1.084502.10..22.4.2" /> <id nullFlavor="NA" /> <code codeSystem="local" code="3097-3" displayName="Serum or plasma urea nitrogen/creatinine mass ratio" /> < statusCode code="completed" /> <effectiveTime value="240842353002" /> <value unit="" xsi:type="PQ" value="14" /> <referenceRange> <observationRange> <text>NRG</text> </ observationRange> </referenceRange> </observation> </ component> <component> <observation moodCode="EVN" classCode="OBS"> <templateId root="216.840.1.479007.10...4.2" /> <id nullFlavor="NA" /> <code codeSystem="local" code="54765-6" displayName= "Serum or plasma creatinine measurement with calculation of estimated glomerular filtration rate" /> <statusCode code="completed" /> <effectiveTime value="435302582511" /> <value unit="" xsi:type="PQ" value=">" /> <referenceRange> <observationRange> <text>NRG</text> </observationRange> </referenceRange > </observation> </component> <component> <observation moodCode="EVN" classCode="OBS"> <templateId root= "2.16.840.1.949961.10..22.4.2" /> <id nullFlavor="NA" /> < code codeSystem="local" code="2345-7" displayName="Serum or plasma glucose measurement (mass/volume)" /> <statusCode code="completed" /> <effectiveTime value="807724761600" /> <value unit="mg/dL" xsi:type="PQ " value="117" /> <interpretationCode codeSystem="local" code="" /> <referenceRange> <observationRange> <text>70-105 </text> </observationRange> </referenceRange> </ observation> </component> <component> <observation moodCode= "EVN" classCode="OBS"> <templateId root="2.16.840.1.994473.10.20.22.4.2 " /> <id nullFlavor="NA" /> <code codeSystem="local" code= "20514-9" displayName="Serum or plasma calcium measurement (mass/volume)" /> <statusCode code="completed" /> <effectiveTime value= "" /> <value unit="mg/dL" xsi:type="PQ" value="9.5" /> <referenceRange> <observationRange> <text>8.5-10.1 </text> </observationRange> </referenceRange> </ observation> </component> <component> <observation moodCode= "EVN" classCode="OBS"> <templateId root="2.16.840.1.928783.10.20.22.4.2 " /> <id nullFlavor="NA" /> <code codeSystem="local" code= "1974-11" displayName="Serum or plasma total bilirubin measurement (mass/volume) " /> <statusCode code="completed" /> <effectiveTime value= "" /> <value unit="mg/dL" xsi:type="PQ" value="1.4" /> <interpretationCode codeSystem="local" code="" /> < referenceRange> <observationRange> <text>0.1-1.0</text> </observationRange> </referenceRange> </observation > </component> <component> <observation moodCode="EVN" classCode="OBS"> <templateId root="2.16.840.1.817511.10..22.4.2" /> <id nullFlavor="NA" /> <code codeSystem="local" code="6768-" displayName="Serum or plasma alkaline phosphatase measurement (enzymatic activity/volume)" /> <statusCode code="completed" /> < effectiveTime value="" /> <value unit="U/L" xsi:type="PQ" value="78" /> <referenceRange> <observationRange> <text>40-136</text> </observationRange> </referenceRange > </observation> </component> <component> <observation moodCode="EVN" classCode="OBS"> <templateId root= "2.16.840.1.716239.10..22.4.2" /> <id nullFlavor="NA" /> < code codeSystem="local" code="1920-05" displayName="Serum or plasma aspartate aminotransferase measurement (enzymatic activity/volume)" /> < statusCode code="completed" /> <effectiveTime value="" /> <value unit="U/L" xsi:type="PQ" value="21" /> <referenceRange > <observationRange> <text>5-34</text> </ observationRange> </referenceRange> </observation> </ component> <component> <observation moodCode="EVN" classCode="OBS"> <templateId root="2.16.840.1.905685.10..22.4.2" /> <id nullFlavor="NA" /> <code codeSystem="local" code="17411-22" displayName= "Serum or plasma alanine aminotransferase measurement (enzymatic activity/volume )" /> <statusCode code="completed" /> <effectiveTime value= "" /> <value unit="U/L" xsi:type="PQ" value="20" /> <referenceRange> <observationRange> <text>0-55</text > </observationRange> </referenceRange> </observation > </component> <component> <observation moodCode="EVN" classCode="OBS"> <templateId root="2.16.840.1.180786.10..22.4.2" /> <id nullFlavor="NA" /> <code codeSystem="local" code="2885-2" displayName="Serum or plasma protein measurement (mass/volume)" /> < statusCode code="completed" /> <effectiveTime value="996244239582" /> <value unit="g/dL" xsi:type="PQ" value="7.0" /> < referenceRange> <observationRange> <text>6.4-8.2</text> </observationRange> </referenceRange> </observation > </component> <component> <observation moodCode="EVN" classCode="OBS"> <templateId root="2.16.840.1.364548....4.2" /> <id nullFlavor="NA" /> <code codeSystem="local" code="1751-7" displayName="Serum or plasma albumin measurement (mass/volume)" /> < statusCode code="completed" /> <effectiveTime value="305197869979" /> <value unit="g/dL" xsi:type="PQ" value="4.1" /> < referenceRange> <observationRange> <text>3.2-4.5</text> </observationRange> </referenceRange> </observation > </component> <component> <observation moodCode="EVN" classCode="OBS"> <templateId root="2.16.840.1.792908.10..22.4.2" /> <id nullFlavor="NA" /> <code codeSystem="local" code= "CALCIUMCORR" displayName="CALCIUM CORRECTED" /> <statusCode code= "completed" /> <effectiveTime value="185697389523" /> <value unit="mg/dL" xsi:type="PQ" value="9.4" /> <referenceRange> < observationRange> <text>8.5-10.1</text> </ observationRange> </referenceRange> </observation> </ component> </organizer> </entry> <entry> <organizer moodCode="EVN" classCode="BATTERY"> <templateId root="2.16.840.1.245953.10..22.4.1" /> <id nullFlavor="NA" /> <code codeSystem="local" code="2157-03" displayName="Serum or plasma creatine kinase measurement (enzymatic activity/ volume)" /> <statusCode code="completed" /> <component> < observation moodCode="EVN" classCode="OBS"> <templateId root= "2.16.840.1.513865.10.20.22.4.2" /> <id nullFlavor="NA" /> < code codeSystem="local" code="2157-03" displayName="Serum or plasma creatine kinase measurement (enzymatic activity/volume)" /> <statusCode code= "completed" /> <effectiveTime value="406989179601" /> <value unit="U/L" xsi:type="PQ" value="92" /> <referenceRange> < observationRange> <text>30-200</text> </observationRange > </referenceRange> </observation> </component> </ organizer> </entry> <entry> <organizer moodCode="EVN" classCode="BATTERY"> <templateId root="2.16.840.1.673599.10...4.1" /> <id nullFlavor= "NA" /> <code codeSystem="local" code="61755-0" displayName="Serum or plasma troponin i.cardiac measurement (mass/volume)" /> <statusCode code= "completed" /> <component> <observation moodCode="EVN" classCode= "OBS"> <templateId root="2.16.840.1.125754.10..4.2" /> < id nullFlavor="NA" /> <code codeSystem="local" code="88410-6" displayName="Serum or plasma troponin i.cardiac measurement (mass/volume)" /> <statusCode code="completed" /> <effectiveTime value= "750387376855" /> <value unit="ng/mL" xsi:type="PQ" value="<" /> <referenceRange> <observationRange> <text>< 0.028</text> </observationRange> </referenceRange> </ observation> </component> </organizer> </entry> <entry> <organizer moodCode="EVN" classCode="BATTERY"> <templateId root= "2.16.840.1.799877.08.05.22.4.1" /> <id nullFlavor="NA" /> <code codeSystem="local" code="18862-8" displayName="Serum or plasma thyrotropin measurement by detection limit <=0.05 miu/l (units/volume)" /> < statusCode code="completed" /> <component> <observation moodCode= "EVN" classCode="OBS"> <templateId root="2.16.840.1.331059.10..22.4.2 " /> <id nullFlavor="NA" /> <code codeSystem="local" code= "98070-8" displayName="Serum or plasma thyrotropin measurement by detection limit <=0.05 miu/l (units/volume)" /> <statusCode code="completed" / > <effectiveTime value="142893420730" /> <value unit="u[iU]/mL " xsi:type="PQ" value="0.98" /> <referenceRange> < observationRange> <text>0.35-4.94</text> </ observationRange> </referenceRange> </observation> </ component> </organizer> </entry> <entry> <organizer moodCode="EVN" classCode="BATTERY"> <templateId root="216.840.1.101162.10.20.22.4.1" /> <id nullFlavor="NA" /> <code codeSystem="local" code="90842-9" displayName="Complete blood count (CBC) with automated white blood cell (WBC) differential" /> <statusCode code="completed" /> <component> < observation moodCode="EVN" classCode="OBS"> <templateId root= "216.840.1.651388.10.20.22.4.2" /> <id nullFlavor="NA" /> < code codeSystem="local" code="6690-2" displayName="Blood leukocytes automated count (number/volume)" /> <statusCode code="completed" /> < effectiveTime value="071216846723" /> <value unit="10*3/uL" xsi:type= "PQ" value="6.2" /> <referenceRange> <observationRange> <text>4.3-11.0</text> </observationRange> </ referenceRange> </observation> </component> <component> <observation moodCode="EVN" classCode="OBS"> <templateId root= "216.840.1.448707.10.20.22.4.2" /> <id nullFlavor="NA" /> < code codeSystem="local" code="789-8" displayName="Blood erythrocytes automated count (number/volume)" /> <statusCode code="completed" /> < effectiveTime value="286616895887" /> <value unit="10*6/uL" xsi:type= "PQ" value="4.33" /> <interpretationCode codeSystem="local" code="" / > <referenceRange> <observationRange> <text> 4.35-5.85</text> </observationRange> </referenceRange> </observation> </component> <component> <observation moodCode="EVN" classCode="OBS"> <templateId root= "2.16.840.1.021095.10.20.22.4.2" /> <id nullFlavor="NA" /> < code codeSystem="local" code="44568-7" displayName="Venous blood hemoglobin measurement (mass/volume)" /> <statusCode code="completed" /> <effectiveTime value="" /> <value unit="g/dL" xsi:type="PQ " value="13.4" /> <referenceRange> <observationRange> <text>13.3-17.7</text> </observationRange> </ referenceRange> </observation> </component> <component> <observation moodCode="EVN" classCode="OBS"> <templateId root= "2.16.840.1.567709.10.20.22.4.2" /> <id nullFlavor="NA" /> < code codeSystem="local" code="80847-4" displayName="Blood hematocrit (volume fraction)" /> <statusCode code="completed" /> <effectiveTime value="" /> <value unit="%" xsi:type="PQ" value="39" / > <interpretationCode codeSystem="local" code="" /> < referenceRange> <observationRange> <text>40-54</text> </observationRange> </referenceRange> </observation> </component> <component> <observation moodCode="EVN" classCode= "OBS"> <templateId root="2.16.840.1.480347.10..22.4.2" /> < id nullFlavor="NA" /> <code codeSystem="local" code="787-2" displayName ="Automated erythrocyte mean corpuscular volume" /> <statusCode code= "completed" /> <effectiveTime value="481836615363" /> <value unit="[foz_us]" xsi:type="PQ" value="89" /> <referenceRange> <observationRange> <text>80-99</text> </ observationRange> </referenceRange> </observation> </ component> <component> <observation moodCode="EVN" classCode="OBS"> <templateId root="2.16.840.1.714478.10..4.2" /> <id nullFlavor="NA" /> <code codeSystem="local" code="785-6" displayName= "Automated erythrocyte mean corpuscular hemoglobin (mass per erythrocyte)" /> <statusCode code="completed" /> <effectiveTime value= "690310709849" /> <value unit="pg" xsi:type="PQ" value="31" /> <referenceRange> <observationRange> <text>25-34</text > </observationRange> </referenceRange> </observation > </component> <component> <observation moodCode="EVN" classCode="OBS"> <templateId root="2.16.840.1.358288.10...4.2" /> <id nullFlavor="NA" /> <code codeSystem="local" code="786-4" displayName="Automated erythrocyte mean corpuscular hemoglobin concentration measurement (mass/volume)" /> <statusCode code="completed" /> <effectiveTime value="112718194917" /> <value unit="g/dL" xsi:type="PQ " value="35" /> <referenceRange> <observationRange> <text>32-36</text> </observationRange> </ referenceRange> </observation> </component> <component> <observation moodCode="EVN" classCode="OBS"> <templateId root= "2.16.840.1.019483.10.22.4.2" /> <id nullFlavor="NA" /> < code codeSystem="local" code="788-0" displayName="Automated erythrocyte distribution width ratio" /> <statusCode code="completed" /> < effectiveTime value="915992740402" /> <value unit="%" xsi:type="PQ " value="13.9" /> <referenceRange> <observationRange> <text>10.0-14.5</text> </observationRange> </ referenceRange> </observation> </component> <component> <observation moodCode="EVN" classCode="OBS"> <templateId root= "216.840.1.205052...4.2" /> <id nullFlavor="NA" /> < code codeSystem="local" code="777-3" displayName="Automated blood platelet count (count/volume)" /> <statusCode code="completed" /> < effectiveTime value="973830301281" /> <value unit="10*3/uL" xsi:type= "PQ" value="234" /> <referenceRange> <observationRange> <text>130-400</text> </observationRange> </ referenceRange> </observation> </component> <component> <observation moodCode="EVN" classCode="OBS"> <templateId root= "2.16.840.1.578326.2022.4.2" /> <id nullFlavor="NA" /> < code codeSystem="local" code="46566-4" displayName="Automated blood platelet mean volume measurement" /> <statusCode code="completed" /> < effectiveTime value="511578185108" /> <value unit="[[facility]]" xsi:type= "PQ" value="10.5" /> <interpretationCode codeSystem="local" code="" / > <referenceRange> <observationRange> <text>7.4 -10.4</text> </observationRange> </referenceRange> </ observation> </component> <component> <observation moodCode= "EVN" classCode="OBS"> <templateId root="2.16.840.1.350059.10..22.4.2 " /> <id nullFlavor="NA" /> <code codeSystem="local" code="770 -8" displayName="Automated blood neutrophils/100 leukocytes" /> < statusCode code="completed" /> <effectiveTime value="" /> <value unit="%" xsi:type="PQ" value="53" /> < referenceRange> <observationRange> <text>42-75</text> </observationRange> </referenceRange> </observation> </component> <component> <observation moodCode="EVN" classCode= "OBS"> <templateId root="2.16.840.1.076255.10.20.22.4.2" /> < id nullFlavor="NA" /> <code codeSystem="local" code="736-9" displayName ="Automated blood lymphocytes/100 leukocytes" /> <statusCode code= "completed" /> <effectiveTime value="" /> <value unit="%" xsi:type="PQ" value="35" /> <referenceRange> < observationRange> <text>12-44</text> </observationRange > </referenceRange> </observation> </component> < component> <observation moodCode="EVN" classCode="OBS"> < templateId root="2.16.840.1.446076.10..22.4.2" /> <id nullFlavor="NA " /> <code codeSystem="local" code="11573-6" displayName="Blood monocytes/100 leukocytes" /> <statusCode code="completed" /> < effectiveTime value="407470736369" /> <value unit="%" xsi:type="PQ " value="8" /> <referenceRange> <observationRange> <text>0-12</text> </observationRange> </referenceRange > </observation> </component> <component> <observation moodCode="EVN" classCode="OBS"> <templateId root= "216.840.1.116886.10...4.2" /> <id nullFlavor="NA" /> < code codeSystem="local" code="713-8" displayName="Automated blood eosinophils/ 100 leukocytes" /> <statusCode code="completed" /> < effectiveTime value="220210105197" /> <value unit="%" xsi:type="PQ " value="4" /> <referenceRange> <observationRange> <text>0-10</text> </observationRange> </referenceRange > </observation> </component> <component> <observation moodCode="EVN" classCode="OBS"> <templateId root= "2.16.840.1.568927.10.20.22.4.2" /> <id nullFlavor="NA" /> < code codeSystem="local" code="706-2" displayName="Automated blood basophils/100 leukocytes" /> <statusCode code="completed" /> <effectiveTime value="309722890853" /> <value unit="%" xsi:type="PQ" value="0" /> <referenceRange> <observationRange> <text>0-10 </text> </observationRange> </referenceRange> </ observation> </component> <component> <observation moodCode= "EVN" classCode="OBS"> <templateId root="216.840.1.283932.10.20.22.4.2 " /> <id nullFlavor="NA" /> <code codeSystem="local" code="751 -8" displayName="Blood neutrophils automated count (number/volume)" /> <statusCode code="completed" /> <effectiveTime value="162028180943" /> <value unit="10*3" xsi:type="PQ" value="3.3" /> < referenceRange> <observationRange> <text>1.8-7.8</text> </observationRange> </referenceRange> </observation > </component> <component> <observation moodCode="EVN" classCode="OBS"> <templateId root="216.840.1.196401.1022.4.2" /> <id nullFlavor="NA" /> <code codeSystem="local" code="731-0" displayName="Blood lymphocytes automated count (number/volume)" /> < statusCode code="completed" /> <effectiveTime value="335935750065" /> <value unit="10*3" xsi:type="PQ" value="2.2" /> < referenceRange> <observationRange> <text>1.0-4.0</text> </observationRange> </referenceRange> </observation > </component> <component> <observation moodCode="EVN" classCode="OBS"> <templateId root="216.840.1.633372..22.4.2" /> <id nullFlavor="NA" /> <code codeSystem="local" code="742-7" displayName="Blood monocytes automated count (number/volume)" /> < statusCode code="completed" /> <effectiveTime value="410349569277" /> <value unit="10*3" xsi:type="PQ" value="0.5" /> < referenceRange> <observationRange> <text>0.0-1.0</text> </observationRange> </referenceRange> </observation > </component> <component> <observation moodCode="EVN" classCode="OBS"> <templateId root="216.840.1.922954.08.05.22.4.2" /> <id nullFlavor="NA" /> <code codeSystem="local" code="711-2" displayName="Automated eosinophil count" /> <statusCode code="completed " /> <effectiveTime value="781242980366" /> <value unit="10*3/ uL" xsi:type="PQ" value="0.3" /> <referenceRange> < observationRange> <text>0.0-0.3</text> </ observationRange> </referenceRange> </observation> </ component> <component> <observation moodCode="EVN" classCode="OBS"> <templateId root="216.840.1.325294.08.05.22.4.2" /> <id nullFlavor="NA" /> <code codeSystem="local" code="704-7" displayName= "Automated blood basophil count (count/volume)" /> <statusCode code= "completed" /> <effectiveTime value="" /> <value unit="10*3/uL" xsi:type="PQ" value="0.0" /> <referenceRange> <observationRange> <text>0.0-0.1</text> </ observationRange> </referenceRange> </observation> </ component> </organizer> </entry> <entry> <organizer moodCode="EVN" classCode="BATTERY"> <templateId root="2.16.840.1.061617.10..22.4.1" /> <id nullFlavor="NA" /> <code codeSystem="local" code="31064-0" displayName="Comprehensive metabolic panel" /> <statusCode code="completed " /> <component> <observation moodCode="EVN" classCode="OBS"> <templateId root="2.16.840.1.238331.10..22.4.2" /> <id nullFlavor ="NA" /> <code codeSystem="local" code="2951-2" displayName="Serum or plasma sodium measurement (moles/volume)" /> <statusCode code= "completed" /> <effectiveTime value="287599271461" /> <value unit="mmol/L" xsi:type="PQ" value="140" /> <referenceRange> <observationRange> <text>135-145</text> </ observationRange> </referenceRange> </observation> </ component> <component> <observation moodCode="EVN" classCode="OBS"> <templateId root="2.16.840.1.362132.10..22.4.2" /> <id nullFlavor="NA" /> <code codeSystem="local" code="2823-3" displayName= "Serum or plasma potassium measurement (moles/volume)" /> <statusCode code="completed" /> <effectiveTime value="" /> < value unit="mmol/L" xsi:type="PQ" value="4.0" /> <referenceRange> <observationRange> <text>3.6-5.0</text> </ observationRange> </referenceRange> </observation> </ component> <component> <observation moodCode="EVN" classCode="OBS"> <templateId root="2.16.840.1.752332.10..4.2" /> <id nullFlavor="NA" /> <code codeSystem="local" code="" displayName= "Serum or plasma chloride measurement (moles/volume)" /> <statusCode code="completed" /> <effectiveTime value="497377562662" /> < value unit="mmol/L" xsi:type="PQ" value="106" /> <referenceRange> <observationRange> <text>98-107</text> </ observationRange> </referenceRange> </observation> </ component> <component> <observation moodCode="EVN" classCode="OBS"> <templateId root="12.02.840.1.756443.10..4.2" /> <id nullFlavor="NA" /> <code codeSystem="local" code="2028-06" displayName= "Carbon dioxide" /> <statusCode code="completed" /> < effectiveTime value="343395295800" /> <value unit="mmol/L" xsi:type="PQ " value="22" /> <referenceRange> <observationRange> <text>21-32</text> </observationRange> </ referenceRange> </observation> </component> <component> <observation moodCode="EVN" classCode="OBS"> <templateId root= "216.840.1.443734.10..22.4.2" /> <id nullFlavor="NA" /> < code codeSystem="local" code="85391-1" displayName="Serum or plasma anion gap determination (moles/volume)" /> <statusCode code="completed" /> <effectiveTime value="600371773013" /> <value unit="mmol/L" xsi: type="PQ" value="12" /> <referenceRange> <observationRange> <text>5-14</text> </observationRange> </ referenceRange> </observation> </component> <component> <observation moodCode="EVN" classCode="OBS"> <templateId root= "2.16.840.1.959944.10..22.4.2" /> <id nullFlavor="NA" /> < code codeSystem="local" code="3094-0" displayName="Serum or plasma urea nitrogen measurement (mass/volume)" /> <statusCode code="completed" /> <effectiveTime value="291231649677" /> <value unit="mg/dL" xsi:type="PQ" value="14" /> <referenceRange> < observationRange> <text>7-18</text> </observationRange> </referenceRange> </observation> </component> < component> <observation moodCode="EVN" classCode="OBS"> < templateId root="2.16.840.1.839988.10...4.2" /> <id nullFlavor="NA " /> <code codeSystem="local" code="2160-0" displayName="Serum or plasma creatinine measurement (mass/volume)" /> <statusCode code= "completed" /> <effectiveTime value="645982721222" /> <value unit="mg/dL" xsi:type="PQ" value="1.03" /> <referenceRange> <observationRange> <text>0.60-1.30</text> </ observationRange> </referenceRange> </observation> </ component> <component> <observation moodCode="EVN" classCode="OBS"> <templateId root="2.16.840.1.784979.10..22.4.2" /> <id nullFlavor="NA" /> <code codeSystem="local" code="3097-3" displayName= "Serum or plasma urea nitrogen/creatinine mass ratio" /> <statusCode code="completed" /> <effectiveTime value="184963859190" /> < value unit="" xsi:type="PQ" value="14" /> <referenceRange> < observationRange> <text>NRG</text> </observationRange> </referenceRange> </observation> </component> < component> <observation moodCode="EVN" classCode="OBS"> < templateId root="2.16.840.1.159072.10..22.4.2" /> <id nullFlavor="NA " /> <code codeSystem="local" code="63732-8" displayName="Serum or plasma creatinine measurement with calculation of estimated glomerular filtration rate" /> <statusCode code="completed" /> < effectiveTime value="757457650632" /> <value unit="" xsi:type="PQ" value=">" /> <referenceRange> <observationRange> <text>NRG</text> </observationRange> </referenceRange > </observation> </component> <component> <observation moodCode="EVN" classCode="OBS"> <templateId root= "2.16.840.1.383395.10..22.4.2" /> <id nullFlavor="NA" /> < code codeSystem="local" code="2345-7" displayName="Serum or plasma glucose measurement (mass/volume)" /> <statusCode code="completed" /> <effectiveTime value="389894290779" /> <value unit="mg/dL" xsi:type="PQ " value="85" /> <referenceRange> <observationRange> <text>70-105</text> </observationRange> </ referenceRange> </observation> </component> <component> <observation moodCode="EVN" classCode="OBS"> <templateId root= "216.840.1.886534.10..22.4.2" /> <id nullFlavor="NA" /> < code codeSystem="local" code="14676-3" displayName="Serum or plasma calcium measurement (mass/volume)" /> <statusCode code="completed" /> <effectiveTime value="823577018150" /> <value unit="mg/dL" xsi:type="PQ " value="9.2" /> <referenceRange> <observationRange> <text>8.5-10.1</text> </observationRange> </ referenceRange> </observation> </component> <component> <observation moodCode="EVN" classCode="OBS"> <templateId root= "12.02.840.1.801117.10.22.4.2" /> <id nullFlavor="NA" /> < code codeSystem="local" code="1974-11" displayName="Serum or plasma total bilirubin measurement (mass/volume)" /> <statusCode code="completed" / > <effectiveTime value="772629037574" /> <value unit="mg/dL" xsi:type="PQ" value="1.5" /> <interpretationCode codeSystem="local" code="" /> <referenceRange> <observationRange> <text>0.1-1.0</text> </observationRange> </referenceRange > </observation> </component> <component> <observation moodCode="EVN" classCode="OBS"> <templateId root= "16.840.1.952136.10.20.22.4.2" /> <id nullFlavor="NA" /> < code codeSystem="local" code="6768-6" displayName="Serum or plasma alkaline phosphatase measurement (enzymatic activity/volume)" /> <statusCode code="completed" /> <effectiveTime value="813877490894" /> < value unit="U/L" xsi:type="PQ" value="85" /> <referenceRange> <observationRange> <text>40-136</text> </ observationRange> </referenceRange> </observation> </ component> <component> <observation moodCode="EVN" classCode="OBS"> <templateId root="2.16.840.1.001477.10.20.22.4.2" /> <id nullFlavor="NA" /> <code codeSystem="local" code="1920-05" displayName= "Serum or plasma aspartate aminotransferase measurement (enzymatic activity/ volume)" /> <statusCode code="completed" /> <effectiveTime value="018910523929" /> <value unit="U/L" xsi:type="PQ" value="28" /> <referenceRange> <observationRange> <text>5-34< /text> </observationRange> </referenceRange> </ observation> </component> <component> <observation moodCode= "EVN" classCode="OBS"> <templateId root="2.16.840.1.049372.10.20.22.4.2 " /> <id nullFlavor="NA" /> <code codeSystem="local" code= "1742-03" displayName="Serum or plasma alanine aminotransferase measurement ( enzymatic activity/volume)" /> <statusCode code="completed" /> <effectiveTime value="774338413834" /> <value unit="U/L" xsi:type="PQ " value="25" /> <referenceRange> <observationRange> <text>0-55</text> </observationRange> </referenceRange > </observation> </component> <component> <observation moodCode="EVN" classCode="OBS"> <templateId root= "16.840.1.462343.10.20.22.4.2" /> <id nullFlavor="NA" /> < code codeSystem="local" code="2885-2" displayName="Serum or plasma protein measurement (mass/volume)" /> <statusCode code="completed" /> <effectiveTime value="903528983081" /> <value unit="g/dL" xsi:type="PQ " value="6.5" /> <referenceRange> <observationRange> <text>6.4-8.2</text> </observationRange> </ referenceRange> </observation> </component> <component> <observation moodCode="EVN" classCode="OBS"> <templateId root= "16.840.1.169577.10..22.4.2" /> <id nullFlavor="NA" /> < code codeSystem="local" code="1751-7" displayName="Serum or plasma albumin measurement (mass/volume)" /> <statusCode code="completed" /> <effectiveTime value="154844257310" /> <value unit="g/dL" xsi:type="PQ " value="3.9" /> <referenceRange> <observationRange> <text>3.2-4.5</text> </observationRange> </ referenceRange> </observation> </component> <component> <observation moodCode="EVN" classCode="OBS"> <templateId root= "16.840.1.940221.10..22.4.2" /> <id nullFlavor="NA" /> < code codeSystem="local" code="CALCIUMCORR" displayName="CALCIUM CORRECTED" /> <statusCode code="completed" /> <effectiveTime value= "154076301448" /> <value unit="mg/dL" xsi:type="PQ" value="9.3" /> <referenceRange> <observationRange> <text>8.5-10.1 </text> </observationRange> </referenceRange> </ observation> </component> </organizer> </entry> <entry> <organizer moodCode="EVN" classCode="BATTERY"> <templateId root= "2.16.840.1.775994.10.20.22.4.1" /> <id nullFlavor="NA" /> <code codeSystem="local" code="1988-02" displayName="Serum or plasma C reactive protein measurement (mass/volume)" /> <statusCode code="completed" /> <component> <observation moodCode="EVN" classCode="OBS"> < templateId root="2.16.840.1.410743.10.20.22.4.2" /> <id nullFlavor="NA " /> <code codeSystem="local" code="1988-02" displayName="Serum or plasma C reactive protein measurement (mass/volume)" /> <statusCode code="completed" /> <effectiveTime value="256807979736" /> < value unit="mg/dL" xsi:type="PQ" value="0.25" /> <referenceRange> <observationRange> <text>0.00-0.50</text> </ observationRange> </referenceRange> </observation> </ component> </organizer> </entry></section> Encounters ACCT No. Visit Date/Time Discharge Status Pt. Type Provider Facility Loc./Unit Complaint [id number] 02/03/2018 10:20:00 02/04/2018 12:30:00 DIS Outpatient Brandyn ORDONEZ, [facility] & BRANDAN SIMPSON [id number] 12/29/2016 14:00:00 12/29/2016 14:00:00 DIS Outpatient Jim ORDONEZ, Bhavin [facility]ro[facility] & BRANDAN CARLOS [id number] 05/03/2016 05:52:00 05/03/2016 13:50:00 DIS Outpatient Stacie ORDONEZ, [facility] & ER E.CVLO [id number] 11/29/2015 15:25:00 12/03/2015 12:03:00 DIS Inpatient Brandyn ORDONEZ, [facility] & ER E.T4 [id number] 11/17/2015 11:06:00 11/19/2015 14:32:00 DIS Inpatient Renetta ORDONEZ, Shun Maris [facility] & ER E.T2 [id number] 02/28/2017 00:00:00 DIS Document Registration [id number] 06/04/2018 10:22:17 06/04/2018 23:59:59 CLS Outpatient Nancie ORDONEZ, Jesus Suarez [id number] 04/30/2018 23:47:00 05/05/2018 12:19:00 DIS Inpatient Kleber ORDONEZ, [address] [id number] 02/03/2018 12:30:00 02/03/2018 12:30:00 CAN Outpatient Brandyn ORDONEZ, [facility] 02/07/2018 05:01:27 ACT Document Registration [id number] 02/08/2017 09:20:00 02/08/2017 12:45:00 DIS Outpatient ROBERT ORDONEZ, [facility] XRAY [id number] 11/27/2018 14:11:00 11/27/2018 23:59:59 CLS Outpatient KOURTNEY NANCE [facility] CARD SOB,CAD,DIZZINESS [id number] 10/20/2018 10:44:00 10/20/2018 23:59:59 CLS Outpatient DAPHNE BHATT MD [facility] CARD HTN,CAD [id number] 11/16/2017 09:57:00 11/16/2017 23:59:59 CLS Outpatient TIERRA DE MD [facility] RAD H91.93 HEARING LOSS [id number] 11/16/2017 09:55:00 11/16/2017 23:59:59 CLS Outpatient DAPHNE BHATT MD [facility] LAB CONTRAST PROTOCOL [id number] 11/10/2017 11:19:00 11/10/2017 23:59:59 CLS Outpatient TIERRA DE MD [facility] RAD BILAT HEARING LOSS [id number] 10/25/2017 09:13:00 10/25/2017 12:15:00 DIS Outpatient WALI SALAZAR DO [facility] ENDO DYSPHAGIA [id number] 10/20/2017 05:38:00 10/20/2017 15:05:00 DIS Outpatient WALI SALAZAR DO [facility] PREOP EGD [id number] 03/22/2017 07:53:00 03/22/2017 23:59:59 CLS Outpatient KOURTNEY NANCE [facility] LAB CONTRAST PROTOCOL [id number] 03/22/2017 07:48:00 03/22/2017 23:59:59 CLS Outpatient MILES HOLLAND PA-C [facility] RAD INF RENAL ANEURYSM [id number] 01/07/2017 10:14:00 01/07/2017 23:59:59 CLS Outpatient MILES HOLLAND PA-C [facility] RAD AAA,LE PAD [id number] 01/04/2017 09:21:00 01/04/2017 23:59:59 CLS Outpatient GARCIA KRAFT APRN [facility] LAB AAA,PAD [id number] 04/07/2016 08:49:00 04/07/2016 23:59:59 CLS Outpatient ESPERANZA ORDONEZ, LORENA Angelo [facility] RAD N28.1 [id number] 11/27/2015 14:16:00 11/29/2015 13:50:00 DIS Inpatient NOVA ORDONEZ, DAPHNE Pollock [facility] 4TH WEAKNESS,ANEMIA, HYPOXEMIA [id number] 06/11/2015 08:27:00 06/11/2015 13:50:00 DIS Outpatient EMILEE LEUNG [facility] [facility] [id number] 06/09/2015 10:24:00 06/09/2015 23:59:59 CLS Outpatient EMILEE LEUNG MD [facility] PREOP [id number] 05/27/2015 15:13:00 05/27/2015 23:59:59 CLS Outpatient SIDDHARTHA MADISONCLIVE ARMAS [facility] RAD [id number] 09/13/2014 09:07:00 09/13/2014 14:36:00 DIS Emergency MARIA E ORDONEZ, AMELIE Adler [facility] ER [id number] 05/06/2014 15:10:00 05/06/2014 23:59:59 CLS Outpatient FRANCISCO ORDONEZ, DOUG Payan [facility] RAD [id number] 12/19/2018 18:48:00 ACT Inpatient NOVA ORDONEZ, DAPHNE Pollock [facility] 4TH RECTAL BLEED,DIVERTICULITIS [id number] 12/11/2014 10:40:00 Document Registration [id number] 08/18/2017 11:02:39 08/18/2017 23:59:59 CLS Outpatient [id number] 08/17/2018 08:24:24 08/17/2018 23:59:59 CLS Outpatient LORENA MATA I [id number] 07/14/2016 09:30:00 07/14/2016 09:30:00 DIS Outpatient SHUN WHITE, S/P EVAR [id number] 12/16/2015 09:45:00 12/16/2015 23:59:59 CLS Outpatient SHUN WHITE aaa s/p evar [id number] 11/12/2015 12:03:00 11/12/2015 12:03:00 DIS Outpatient SHUN WHITE [id number] 04/30/2018 19:43:00 04/30/2018 21:43:00 DIS Outpatient Chase Nickerson [id number] 04/30/2018 19:51:40 Document Registration
[2018-12-19 20:30] VITALS: BP 160/88
[2018-12-19] MEDS ORDERED: ONDANSETRON 4 MG/2 ML (SDV) Z0FRAN IV PRN (20:30)
[2018-12-19] MEDS ORDERED: CATHETER FLUSH 10 ML SYR IV PRN (20:30)
[2018-12-19] MEDS ORDERED: NS IV 1000 ML 1,000 ML IV SCH (20:30)
[2018-12-20] VITALS: BP 167/87
[2018-12-20 04:43] VITALS: BP 167/78
[2018-12-20 05:51] LABS: BASOPHILS % (AUTO) 0 % (0-10); EOSINOPHILS % (AUTO) 0 % (0-10); HEMATOCRIT 38 % (40-54); HEMOGLOBIN 13.1 G/DL (13.3-17.7); LYMPHOCYTES # (AUTO) 0.8 X 10^3 (1.0-4.0); LYMPHOCYTES % (AUTO) 14 % (12-44); MEAN CORPUSCULAR HEMOGLOBIN 31 PG (25-34); MEAN CORPUSCULAR HGB CONC 34 G/DL (32-36); MEAN CORPUSCULAR VOLUME 90 FL (80-99); MEAN PLATELET VOLUME 10.6 FL (7.4-10.4); MONOCYTES # (AUTO) 0.2 X 10^3 (0.0-1.0); MONOCYTES % (AUTO) 3 % (0-12); NEUTROPHILS # (AUTO) 4.7 X 10^3 (1.8-7.8); NEUTROPHILS % (AUTO) 83 % (42-75); PLATELET COUNT 215 10^3/uL (130-400); RED CELL DISTRIBUTION WIDTH 13.5 % (10.0-14.5); WHITE BLOOD COUNT 5.6 10^3/uL (4.3-11.0)
[2018-12-20 06:22] LABS: ALANINE AMINOTRANSFERASE 22 U/L (0-55); ALBUMIN 3.8 GM/DL (3.2-4.5); ALKALINE PHOSPHATASE 76 U/L (40-136); BILIRUBIN,TOTAL 1.5 MG/DL (0.1-1.0); BUN/CREATININE RATIO 14; CALCIUM 9.5 MG/DL (8.5-10.1); CARBON DIOXIDE 20 MMOL/L (21-32); CHLORIDE 108 MMOL/L (98-107); CREATININE SERUM 0.98 MG/DL (0.60-1.30); GFR ESTIMATED > 60; GLUCOSE 135 MG/DL (70-105); POTASSIUM 4.1 MMOL/L (3.6-5.0); SODIUM 136 MMOL/L (135-145); TOTAL PROTEIN 6.2 GM/DL (6.4-8.2)
[2018-12-20 08:00] VITALS: BP 140/78
--- NOTE | 2018-12-20 08:37 | History & Physicial ---
History of Present Illness History of Present Illness Reason for visit/HPI PT REPORTED TO THE HOSPITAL FOR ACUTE GI BLEEDING 2 DAYS IN A ROW WITH TWO BOWEL MOVEMENTS. HIS CALLED THE OFFICE ON TUESDAY REPORTING THAT HE HAD SOME BLOOD IN HIS STOOL. THEY WERE INSTRUCTED TO GO TO THE HOSPITAL IF LARGE BLOOD OR IF RECURRENT BLOODY STOOLS. APPARENTLY HE DID NOT HAVE ANY MORE STOOLS ON TUESDAY, HOWEVER YESTERDAY AROUND 11AM HE HAD A RECURRENT BLOODY STOOL AND THEY WENT TO THE HOSPITAL. HE HAS HX OF ABD AORTIC ANEURYSM, PREVIOUS GI BLEED AND CAD. HIS FAMILY REPORTS THAT HE HAD STRAWBERRIES AND SUNFLOWER SEEDS THIS PAST WEEK. THIS IS H AND P AND SHORT STAY SUMMARY Date of Admission Dec 19, 2018 at 18:48 Date Seen by a Provider: Dec 20, 2018 Time Seen by a Provider: 08:55 I consulted on this patient on 12/20/18 08:37 Attending Physician Daphne Butcher MD Admitting Physician Daphne Butcher MD Consult Allergies and Home Medications Allergies Coded Allergies: amoxicillin (Verified Allergy, Severe, RASH, 12/19/18) clavulanic acid (Verified Allergy, Severe, RASH, 12/19/18) Home Medications Acetaminophen 500 Mg Tablet, 1,000 MG PO DAILY PRN for PAIN OR FEVER, (Reported) Allopurinol 100 Mg Tablet, 100 MG PO DAILY, (Reported) Aspirin 81 Mg Tab.chew, 81 MG PO DAILY, (Reported) Cetirizine HCl 10 Mg Tablet, 10 MG PO DAILY, (Reported) Cholecalciferol (Vitamin D3) 2,000 Unit Tablet, 2,000 UNIT PO DAILY@1200, ( Reported) Citalopram Hydrobromide 20 Mg Tablet, 20 MG PO DAILY, (Reported) Clonazepam 1 Mg Tablet, 1 MG PO HS, (Reported) Clopidogrel Bisulfate 75 Mg Tablet, 75 MG PO DAILY, (Reported) Dexamethasone 0.5 Mg Tablet, 0.25 MG PO DAILY, (Reported) TAKE 1/2 OF (.5MG) TAB Dutasteride 0.5 Mg Capsule, 0.5 MG PO DAILY, (Reported) Fluticasone Propionate 9.9 Ml [place].susp, 1 SPRAY NSEACH HS PRN for ALLERGIES, ( Reported) Glucosamine HCl/Chondr Arora A Na 1 Each Tablet, 1 TAB PO DAILY@1200, (Reported) Krill/[place]-3/Dha/Epa/Lipids 1 Each Capsule, 500 MG PO DAILY@1200, (Reported) Losartan Potassium 50 Mg Tablet, 50 MG PO DAILY, (Reported) Multivitamin 1 Each Tablet, 0.5 TAB PO HS, (Reported) Pantoprazole Sodium 40 Mg Tablet.dr, 40 MG PO DAILY, (Reported) Spironolactone 25 Mg Tablet, 25 MG PO DAILY, (Reported) Sucralfate 1 Gm Tablet, 1 GM PO QID Prescribed by: WALI SALAZAR on 10/25/17 1119 Tamsulosin HCl 0.4 Mg Cap.er.24h, 0.4 MG PO HS, (Reported) Ubidecarenone 100 Mg Capsule, 100 MG PO HS, (Reported) Patient Home Medication List Home Medication List Reviewed: Yes Past Ifyonxv-Qrniwh-Vseznh Hx Patient Social History Marrital Status: Living Status: LIVES AT HOME WITH SPOUSE Employed/Student: retired Alcohol Use: Denies Use Recreational Drug Use: No Smoking Status: Never a Smoker 2nd Hand Smoke Exposure: No Physical Abuse Screen: No Sexual Abuse: No Recent Foreign Travel: No Contact w/other who traveled: No Recent Hopitalizations: No Recent Infectious Disease Expo: No Immunizations Up To Date Date of Pneumonia Vaccine: Jun 11, 2017 Date of Influenza Vaccine: Jul 08, 2018 Seasonal Allergies Seasonal Allergies: No Surgeries Yes (HEART STENTS X8, HEART BALLOONS X5, BILAT INGUINAL HERNIA, ) Coronary Stent, Gallbladder Respiratory Yes (USES CPAP) Currently Using CPAP: Yes Currently Using BIPAP: No Cardiovascular Yes (STENTS X8 TOTAL, 5 HEART BALLOON PROCEDURES) Aneurysm, Hypertension Neurological No Reproductive System Hx Reproductive Disorders: No Sexually Transmitted Disease: No HIV/AIDS: No Gastrointestinal Yes (dysphagi) Abdominal Hernia Musculoskeletal Yes Arthritis Endocrine History of Endocrine Disorders: No HEENT Loss of Vision: Denies Hearing Impairment: Hard of Hearing, Hearing Aide Left Cancer No Psychosocial History of Psychiatric Problem: No Integumentary History of Skin or Integumenta: No Blood Transfusions History of Blood Disorders: No Reviewed Nursing Assessment Reviewed/Agree w Nursing PMH: Yes Family Medical History Significant Family History: Heart Disease, Hypertension Review of Systems Constitutional: No chills, No fever; malaise; No weakness EENTM: hearing loss (HAS COCHLEAR IMPLANT); No hoarseness, No throat pain Respiratory: No cough, No dyspnea on exertion, No short of breath Cardiovascular: No chest pain, No edema; Hx of Intervention Gastrointestinal: abdominal pain; No loss of appetite, No nausea, No vomiting; other (HEMATOCHEZIA) Genitourinary: no symptoms reported Musculoskeletal: No back pain, No muscle weakness Skin: no symptoms reported Psychiatric/Neurological: Denies Anxiety; Depressed (CHRONIC); Denies Weakness Physical Exam Vital Signs Vital Signs - First Documented 12/19/18 12:40 Temp 98.0 Pulse 104 Resp 16 B/P (MAP) 107/90 (96) Pulse Ox 91 O2 Delivery Room Air Capillary Refill : Less Than 3 SecondsLess Than 3 Seconds Height, Weight, BMI Height: 6'0.00" Weight: 211lbs. 6.0oz. 95.848781wk; 28.7 BMI Method:Stated General Appearance: No Apparent Distress, WD/WN Eyes: Bilateral Eye Normal Inspection, Bilateral Eye PERRL, Bilateral Eye EOMI HEENT: PERRL/EOMI Neck: Full Range of Motion, Supple Respiratory: Chest Non Tender, Lungs Clear, Normal Breath Sounds, No Accessory Muscle Use Cardiovascular: Regular Rate, Rhythm, No Edema, Normal Peripheral Pulses Gastrointestinal: Normal Bowel Sounds, Non Tender, Soft Rectal: Deferred Back: Normal Inspection Extremity: Normal Capillary Refill, Normal Inspection, Non Tender, No Calf Tenderness, No Pedal Edema Neurologic/Psychiatric: Alert, Oriented x3, No Motor/Sensory Deficits, Normal 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 PRITCHARD - WITH STABLE HGB - WILL DO SCOPE OUTPATIENT. ANEMIA - STABLE - VERY MINIMAL DECREASE WITH THE MORNING LAB. 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 DR. MENDOZA DISCUSSED WITH DR. GASPAR YESTERDAY PRIOR TO ADMISSION OF MICHAEL TO THIS FACILITY. DEPRESSION - STABLE CONTINUE WITH CITALOPRAM. DISCUSSED WITH SURGEON - HE WILL TALK TO PT AND PLAN ON SCOPE AN OUTPATIENT - IF THERE ARE ANY OTHER RECURRENT EPISODES WHICH DO NOT RENÉE, WILL THEN HAVE MORE EMERGENT SCOPE. Admission Diagnosis ACUTE LOWER GI BLEED ANEMIA HYPERTENSION CORONARY ARTERY DISEASE ABDOMINAL AORTIC ANEURYSM WITH ENDOLEAK DEPRESSION Admission Status: Observation Clinical Quality Measures DVT/VTE Risk/Contraindication: Risk Factor Score Per Nursin RFS Level Per Nursing on Admit: 2=Moderate DAPHNE BUTCHER MD Dec 20, 2018 08:37
--- NOTE | 2018-12-20 09:22 | Discharge Inst-Complex ---
PDI Med Rec & Follow Up Appt. Continued Medications: Acetaminophen (Tylenol Extra Strength) 500 Mg Tablet 1000 MG PO DAILY PRN for PAIN OR FEVER Allopurinol (Allopurinol) 100 Mg Tablet 100 MG PO DAILY, TAB Aspirin (Aspirin) 81 Mg Tab.chew 81 MG PO DAILY, TAB Cetirizine HCl (Cetirizine HCl) 10 Mg Tablet 10 MG PO DAILY, TAB Cholecalciferol (Vitamin D3) (Vitamin D3) 2,000 Unit Tablet 2000 UNIT PO DAILY@1200, TAB Citalopram Hydrobromide (Citalopram HBr) 20 Mg Tablet 20 MG PO DAILY, TAB Clonazepam (Clonazepam) 1 Mg Tablet 1 MG PO HS, TAB Clopidogrel Bisulfate (Clopidogrel) 75 Mg Tablet 75 MG PO DAILY Dexamethasone (Dexamethasone) 0.5 Mg Tablet 0.25 MG PO DAILY, TAB TAKE 1/2 OF (.5MG) TAB Dutasteride (Dutasteride) 0.5 Mg Capsule 0.5 MG PO DAILY, CAP Fluticasone Propionate (Flonase Allergy Relief) 9.9 Ml [place].susp 1 SPRAY NSEACH HS PRN for ALLERGIES Glucosamine HCl/Chondr Arora A Na (Osteo Bi-Flex Caplet) 1 Each Tablet 1 TAB PO DAILY@1200 Krill/[place]az[place]-3/Dha/Epa/Lipids ([place]az[place]-3 Krill Oil 500 mg Sfgl) 1 Each Capsule 500 MG PO DAILY@1200, CAP Losartan Potassium (Losartan Potassium) 50 Mg Tablet 50 MG PO DAILY, TAB Multivitamin (Multi-Vitamin Daily) 1 Each Tablet 0.5 TAB PO HS Pantoprazole Sodium (Pantoprazole Sodium) 40 Mg Tablet.dr 40 MG PO DAILY, TAB Spironolactone (Spironolactone) 25 Mg Tablet 25 MG PO DAILY Sucralfate (Carafate) 1 Gm Tablet 1 GM PO QID, #120 TAB Tamsulosin HCl (Tamsulosin HCl) 0.4 Mg Cap.er.24h 0.4 MG PO HS, CAP Ubidecarenone (Coq-10) 100 Mg Capsule 100 MG PO HS, CAP Prescription: Transmitted to Pharmacy Activity, Diet and PDI Resume Normal Activity: Yes Discharge Diet: Regular Diet Driving Instructions: No Driving for 24 Hours Symptoms to Reoprt to : Appetite Changes, Fever Over 101 Degrees F, Pain/ Pressure in Chest, Cough Up/Vomit Blood For Problems or Questions: Contact Your Physician, Go to Emergency Room DAPHNE BHATT MD Dec 20, 2018 09:22
[2018-12-20] MEDS ORDERED: SPIRONOLACTONE 25 MG (ALDACTONE) TAB PO SCH (09:30)
[2018-12-20] MEDS ORDERED: PANTOPRAZOLE 40 MG (PROTONIX) TAB PO SCH (09:30)
[2018-12-20] MEDS ORDERED: SUCRALFATE 1 GM (CARAFATE) TAB PO SCH (09:30)
[2018-12-20] MEDS ORDERED: CLOPIDOGREL 75 MG (PLAVIX) TABLET PO SCH (09:30)
[2018-12-20] MEDS ORDERED: LOSARTAN 50 MG (COZAAR) TAB PO SCH (09:30)
[2018-12-20] MEDS ORDERED: DEXAMETHASONE 1 MG TAB (DECADRON) PO SCH (10:00)
[2018-12-20 12:00] VITALS: BP 145/62
--- NOTE | 2018-12-20 12:54 | NUR ---
Pt is Jain. provided prayer, Communion and ashes for Benjy Tuesday.
--- NOTE | 2018-12-20 15:58 | CONSULTATION REPORT ---
DATE OF SERVICE: 12/20/2018 ATTENDING PRIMARY CARE PHYSICIAN: Lesley Butcher MD. HISTORY OF PRESENT ILLNESS: The patient is an 83-year-old male who was brought in by his due to rectal bleeding for two days. They report that he has had significant gastrointestinal bleeding in 04/2018 requiring a colonoscopy and some form of intervention. This was then in . He reported that they remembered the diagnosis of having a diverticular bleed at that time. At this time around, his bleeding was not a near significant; however, they report that he did have dark stools that were covered with maroon several times. He did not have any vasovagal episodes at home. He does have a significant history of coronary artery disease as well as peripheral arterial disease and abdominal aortic aneurysm. He is currently on Plavix as well. Since being admitted, his hemoglobin has been stable and his last bowel movement was more normal brown color with no blood. Upon further questioning, he does report that he has had some issues with gastroesophageal reflux disease and was placed on Protonix approximately two to three years ago. He does not report any abdominal pain. PAST MEDICAL HISTORY: Menetrier disease, coronary artery disease, peripheral vascular disease, hearing loss, hypertension, and sleep apnea. PAST SURGICAL HISTORY: Bilateral inguinal hernia repair, multiple cardiac catheterizations with a total of 8 stents, laparoscopic cholecystectomy and right cochlear implant. ALLERGIES: AUGMENTIN. MEDICATIONS: Allopurinol 100 mg daily, aspirin 81 mg daily, cetirizine 10 mg daily, citalopram 20 mg daily, clonazepam 1 mg daily, Plavix 75 mg daily, dexamethasone 0.5 mg daily, dutasteride 0.5 mg daily, fluticasone spray p.r.n., losartan 30 mg daily, Protonix 40 mg daily, spironolactone 25 mg daily, Carafate 1 gram q.i.d., and tamsulosin 0.4 mg daily. SOCIAL HISTORY: Negative smoke, negative alcohol. FAMILY HISTORY: Noncontributory. VITAL SIGNS: Temperature is 97.4, blood pressure 145/62, pulse 69, respirations 18, and pulse ox 95% on room air. REVIEW OF SYSTEMS: Well-nourished male, in no acute distress. He is not experiencing any shortness of breath or difficulty breathing. No chest pain, palpitations or diaphoresis. No nausea or vomiting, with mild intermittent episodes of epigastric discomfort. No hematemesis, no coffee ground emesis. Episode of rectal bleeding, which was described as dark mixed with red maroon colored stool. No fever or chills, no recent inadvertent weight loss. All other review of systems is negative. PHYSICAL EXAMINATION: CHEST: Clear. Good breath sounds bilaterally. HEART: Regular, no murmurs. EXTREMITIES: No lower extremity edema, negative Homans sign. HEENT: No scleral icterus. NECK: No cervical lymphadenopathy. ABDOMEN: Soft, nontender, nondistended. SKIN: Warm, dry. LABORATORY DATA: WBC is 5.6, hemoglobin 13.1, hematocrit 38, and platelets 215. BUN is 14, creatinine 0.98). ASSESSMENT AND PLAN: An 83-year-old male with lower and possible upper gastrointestinal bleeding based on the characteristics of his stool for approximately two days. His hemoglobin has been stable and he did have a recent bowel movement, which was normal in consistency and color. Most likely, etiology of his bleeding was due to a diverticular bleed which was self-limited and stopped on its own; however, he does have a history of gastroesophageal reflux disease and may have an atypical form of gastritis or ulceration due to the black and dark nature of his stools as well. We will proceed with an outpatient EGD and colonoscopy simultaneously, which he may schedule any time by a calling the office. Job ID: [id number] DocumentID: [id number] Dictated Date: 12/20/2018 15:31:05 Sewage Screen Operator Date: 12/20/2018 15:57:08 Dictated By: RAMÓN PRITCHARD MD [facility] CENTERDaniela
[2018-12-20 16:58] VITALS: BP 145/62
== END 2018-12-20 16:23 | disposition home or self-care (01) ==
LOC: EDUNIT# 12:09 → ER 12:12 → 4TH 18:48
PROVIDERS: ADMIT Family Medicine; ATTEND Family Medicine
DX: K92.2 Gastrointestinal hemorrhage, unspecified (principal); D64.9 Anemia, unspecified; I71.4 Abdominal aortic aneurysm, without rupture; I25.10 Atherosclerotic heart disease of native coronary artery without angina pectoris; I10 Essential (primary) hypertension; G47.30 Sleep apnea, unspecified; F32.9 Major depressive disorder, single episode, unspecified; K21.9 Gastro-esophageal reflux disease without esophagitis; Z79.02 Long term (current) use of antithrombotics/antiplatelets; Z79.82 Long term (current) use of aspirin; Z79.899 Other long term (current) drug therapy; Z95.5 Presence of coronary angioplasty implant and graft
CPT/HCPCS: 36415; 74177; 80053; 85025; 86141; G0378

== ENCOUNTER 2018-12-26 10:50 | Outpatient (CLI) | payer MEDICARE ==
[~2018-12-26] VITALS: Ht 182.9 cm; Wt 95.9 kg
[~2018-12-26 10:50] MED LIST changes: +ATOR40TA PO; +TAMS0.4C98 PO; +VITA1TAB17 PO
== END 2018-12-26 11:38 | disposition home or self-care (01) ==
LOC: PREOP 10:50
PROVIDERS: ATTEND Surgery
DX: Z01.818 Encounter for other preprocedural examination (principal)

== ENCOUNTER 2019-01-08 20:36 | Outpatient (CLI) | payer MEDICARE | END 2019-01-09 06:40 | disposition home or self-care (01) | LOC: SLEEP 20:36 | PROVIDERS: ATTEND Otolaryngology Otolaryngology/Facial Plastic Surgery | DX: G47.33 Obstructive sleep apnea (adult) (pediatric) (principal) | CPT/HCPCS: 95811 ==

== ENCOUNTER → 2019-01-15 | Outpatient (CLI) | payer MEDICARE ==
--- NOTE | 2019-01-15 12:11 | Diagnostic Imaging Report ---
Indication: Left rib pain. Time of exam: 11 00 a.m. Multiple views of the left ribs were obtained. No displaced rib fracture is detected. No parenchymal contusion, effusion or pneumothorax is seen. Impression: No acute abnormality is detected. Dictated by: Dictated on workstation # [id number]
== END ==
LOC: RAD 10:47
PROVIDERS: ATTEND Nurse Practitioner Family
DX: R07.81 Pleurodynia (principal); W19.XXXA Unspecified fall, initial encounter
CPT/HCPCS: 71100

== ENCOUNTER 2019-01-25 11:44 | Outpatient (CLI) | payer MEDICARE | END 2019-01-25 12:30 | disposition home or self-care (01) | LOC: SLEEP 11:44 | PROVIDERS: ATTEND Otolaryngology Otolaryngology/Facial Plastic Surgery | DX: G47.33 Obstructive sleep apnea (adult) (pediatric) (principal); R06.83 Snoring ==

== ENCOUNTER 2019-02-07 15:32 | Emergency (ER) | payer MEDICARE ==
[~2019-02-07] VITALS: Ht 182.9 cm; Wt 93.0 kg
[2019-02-07] MEDS ORDERED: NS IV 1000 ML 1,000 ML ONE (16:13)
[2019-02-07] MEDS ORDERED: NS IV 1000 ML 1,000 ML IV SCH ×2 (16:15→20:02)
--- NOTE | 2019-02-07 16:15 | ED General ---
General Chief Complaint: Neurological Problems Stated Complaint: POST-OP WEAKNESS Nursing Triage Note: Pt to ED in wheelchair. Pt needed assistance from the car as pt could not bear weight. Pt accompanied by daughter and . Family reports pt had been in [facility] today for chemical stress test when pt became ill on the way home. Pt began experiencing extreme weakness, confusion, and had incontinence of bowel and bladder. Nursing Sepsis Screen: No Definite Risk Source of Information: Patient Exam Limitations: No Limitations (SINCERE NGUYEN MD) History of Present Illness Date Seen by Provider: Feb 07, 2019 Time Seen by Provider: 16:23 Initial Comments Patient had chemical stress test at [facility] today. Became nauseated and vomited after procedure. [place] better after some IV medication. He was discharged. On arrival developed weakness and had explosive diarrhea ( incontinent). He became so weak he could not stand by himself. He also is very confused. Symptoms have improved on arrival here. (SINCERE NGUYEN MD) Allergies and Home Medications Allergies Coded Allergies: amoxicillin (Verified Allergy, Severe, RASH, 12/26/18) clavulanic acid (Verified Allergy, Severe, RASH, 12/26/18) Iodinated Contrast- Oral and IV Dye (Verified Allergy, Unknown, 12/26/18) Home Medications Acetaminophen 500 Mg Tablet, 1,000 MG PO DAILY PRN for PAIN OR FEVER, (Reported) Allopurinol 100 Mg Tablet, 100 MG PO DAILY, (Reported) Atorvastatin Calcium 40 Mg Tablet, 40 MG PO HS, (Reported) Cetirizine HCl 10 Mg Tablet, 10 MG PO DAILY, (Reported) Cholecalciferol (Vitamin D3) 2,000 Unit Tablet, 2,000 UNIT PO DAILY@1200, ( Reported) Citalopram Hydrobromide 20 Mg Tablet, 20 MG PO DAILY, (Reported) Clopidogrel Bisulfate 75 Mg Tablet, 75 MG PO DAILY, (Reported) Fluticasone Propionate 9.9 Ml [place].susp, 1 SPRAY NSEACH HS PRN for ALLERGIES, ( Reported) Losartan Potassium 50 Mg Tablet, 50 MG PO DAILY, (Reported) Multivitamin 1 Each Tablet, 0.5 TAB PO HS, (Reported) Ondansetron 4 Mg Tab.rapdis, 4 MG PO Q6H PRN for NAUSEA/VOMITING Prescribed by: MARIIA BANEGAS on 02/07/192037 Pantoprazole Sodium 40 Mg Tablet.dr, 40 MG PO DAILY, (Reported) Spironolactone 25 Mg Tablet, 25 MG PO DAILY, (Reported) Sucralfate 1 Gm Tablet, 1 GM PO QID Prescribed by: WALI SALAZAR on 10/25/17 1119 Tamsulosin HCl 0.4 Mg Cap, 0.4 MG PO HS, (Reported) Vitamin B Complex 1 Each Tablet, 1 EACH PO DAILY, (Reported) Patient Home Medication List Home Medication List Reviewed: Yes (MARIIA BANEGAS) Review of Systems Review of Systems Constitutional: dizziness; No fever; malaise, weakness EENTM: hearing loss Respiratory: no symptoms reported Gastrointestinal: No abdominal pain; diarrhea, nausea, vomiting Musculoskeletal: no symptoms reported (SINCERE NGUYEN MD) All Other Systems Reviewed Negative Unless Noted: Yes (SINCERE NGUYEN MD) Past Jvzlvat-Sxdyke-Ccodrb Hx Patient Social History Alcohol Use: Denies Use Recreational Drug Use: No 2nd Hand Smoke Exposure: No Recent Foreign Travel: No Contact w/Someone Who Travel: No Recent Infectious Disease Expo: No Recent Hopitalizations: Yes (12/2018-DIVERTICULITIS/GI BLEED) Physical Abuse: No Sexual Abuse: No (SINCERE NGUYEN MD) Immunizations Up To Date Date of Pneumonia Vaccine: Jun 11, 2017 Date of Influenza Vaccine: Jul 08, 2018 (SINCERE NGUYEN MD) Seasonal Allergies Seasonal Allergies: Yes (SINCERE NGUYEN MD) Past Medical History Surgeries: Yes (HEART STENTS X8, HEART BALLOONS X5, BILAT INGUINAL HERNIA, ) Coronary Stent, Gallbladder Respiratory: Yes (USES CPAP) Sleep Apnea Currently Using CPAP: Yes Currently Using BIPAP: No Cardiac: Yes (STENTS X8 TOTAL, 5 HEART BALLOON PROCEDURES) Aneurysm, Hypertension Neurological: No Reproductive Disorders: No Sexually Transmitted Disease: No HIV/AIDS: No Genitourinary: Yes Kidney Stones Gastrointestinal: Yes Abdominal Hernia, Diverticulosis Musculoskeletal: Yes Arthritis Endocrine: No HEENT: Yes (READING GLASSES) 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 6.0oz. 92.086286pw; 28.7 BMI Method:Stated General Appearance: WD/WN, Anxious Eyes: Bilateral Eye Normal Inspection, Bilateral Eye PERRL, Bilateral Eye EOMI HEENT: PERRL/EOMI, Pharynx Normal Neck: Supple Respiratory: Lungs Clear, Normal Breath Sounds Cardiovascular: Regular Rate, Rhythm, No Edema Gastrointestinal: Non Tender, Soft Back: Normal Inspection Extremity: Normal Range of Motion Neurologic/Psychiatric: Alert, No Motor/Sensory Deficits, Normal Mood/Affect Skin: Normal Color, Warm/Dry (SINCERE NGUYEN MD) Focused Exam Lactate Level 02/07/19 16:25: Lactic Acid Level 1.86 (MARIIA BANEGAS) Lactic Acid Level (MARIIA BANEGAS) Progress/Results/Core Measures Suspected Sepsis Recent Fever Within 48 Hours: No Infection Criteria Present: None New/Unexplained Altered Menta: No Sepsis Screen: No Definite Risk SIRS Temperature:98.0 Pulse: 82 Respiratory Rate: 17 Blood Pressure 160 /112 Mean: 128 (SINCERE NGUYEN MD) Results/Orders Lab Results Laboratory Tests Test 02/07/19 15:47 02/07/19 16:25 Range/Units Glucometer 131 H 70-110 MG/DL White Blood Count 12.7 H 4.3-11.0 10^3/uL Red Blood Count 4.58 4.35-5.85 10^6/uL Hemoglobin 13.8 13.3-17.7 G/DL Hematocrit 41 40-54 % Mean Corpuscular Volume 89 80-99 FL Mean Corpuscular Hemoglobin 30 25-34 PG Mean Corpuscular Hemoglobin Concent 34 32-36 G/DL Red Cell Distribution Width 13.6 10.0-14.5 % Platelet Count 236 130-400 10^3/uL Mean Platelet Volume 9.9 7.4-10.4 FL Neutrophils (%) (Auto) 80 H 42-75 % Lymphocytes (%) (Auto) 12 12-44 % Monocytes (%) (Auto) 7 0-12 % Eosinophils (%) (Auto) 0 0-10 % Basophils (%) (Auto) 0 0-10 % Neutrophils # (Auto) 10.2 H 1.8-7.8 X 10^3 Lymphocytes # (Auto) 1.6 1.0-4.0 X 10^3 Monocytes # (Auto) 0.9 0.0-1.0 X 10^3 Eosinophils # (Auto) 0.0 0.0-0.3 10^3/uL Basophils # (Auto) 0.0 0.0-0.1 10^3/uL Sodium Level 139 135-145 MMOL/L Potassium Level 3.9 3.6-5.0 MMOL/L Chloride Level 107 98-107 MMOL/L Carbon Dioxide Level 21 21-32 MMOL/L Anion Gap 11 5-14 MMOL/L Blood Urea Nitrogen 15 7-18 MG/DL Creatinine 1.04 0.60-1.30 MG/DL Estimat Glomerular Filtration Rate > 60 BUN/Creatinine Ratio 14 Glucose Level 103 70-105 MG/DL Lactic Acid Level 1.86 0.50-2.00 MMOL/L Calcium Level 10.0 8.5-10.1 MG/DL Corrected Calcium 9.8 8.5-10.1 MG/DL Magnesium Level 1.6 L 1.8-2.4 MG/DL Total Bilirubin 1.8 H 0.1-1.0 MG/DL Aspartate Amino Transf (AST/SGOT) 17 5-34 U/L Alanine Aminotransferase (ALT/SGPT) 18 0-55 U/L Alkaline Phosphatase 82 40-136 U/L Troponin I < 0.028 <0.028 NG/ML Total Protein 7.1 6.4-8.2 GM/DL Albumin 4.2 3.2-4.5 GM/DL Lipase 18 8-78 U/L (MARIIA BANEGAS) My Orders Orders - MARIIA BANEGAS Ed Iv/Invasive Line Start (02/07/19 20:02) Ns Iv 1000 Ml (Sodium Chloride 0.9%) (02/07/19 20:02) Magnesium 1 Gm/100 Ml Ivpb (Magnesium Arora (02/07/19 20:15) Loperamide Capsule (Imodium Capsule) (02/07/19 20:45) Rx-Ondansetron Po (Rx-Zofran Po) (02/07/19 20:39) (MARIIA BANEGAS) Medications Given in ED Current Medications Medications Dose Ordered Sig/Jesse Route Start Time Stop Time Status Last Admin Dose Admin Loperamide HCl 4 mg ONCE ONCE PO 02/07/19 20:45 02/07/19 20:46 DC 02/07/19 20:50 4 MG Magnesium Sulfate/ Dextrose 100 ml @ 100 mls/hr ONCE ONCE IV 02/07/19 20:15 02/07/19 21:14 DC 02/07/19 20:38 100 MLS/HR Sodium Chloride 1,000 ml ONCE ONCE IV 02/07/19 18:00 02/07/19 18:01 DC 02/07/19 17:58 1,000 ML (MARIIA BANEGAS) Vital Signs/I&O 02/07/19 21:30 Temp 98.0 Pulse 64 Resp 17 B/P (MAP) 152/83 (106) Pulse Ox 96 O2 Delivery Room Air (MARIIA BANEGAS) Vital Signs/I&O Capillary Refill : Less Than 3 Seconds (SINCERE NGUYEN MD) Blood Pressure Mean: 128 Progress Note #1: Progress Note Nursing reports patient's received all of his IV fluids. Not able to get up. He' s had another couple episodes of urinary incontinence since being here. We'll possibly benefit from stay inpatient. Progress Note #2: Time: 20:12 Progress Note Hospital is on diversion [facility] beds. Spoke with the Dr. Butcher and discussed the case and she thinks that most this could probably be managed at home with some Imodium, nausea medicines, briefs. We discussed with the family only and they're biggest concern is just how to get him from the car back into the house to lay down. They're going to call some other family members to come give them some help. We'll go ahead and give him a third liter fluids to help take him up and give him 1 g of magnesium as well as anticipated may still have loose stools. I reviewed the rest of his history labs and examined the patient. He did receive half a milligram of Ativan earlier but since he is experiencing some delirium probably secondary to a viral GI bug it would not be advisable to continue to treat him with benzos and keeping him in a familiar environment would be superior to a foreign environment. (MARIIA BANEGAS) ECG Initial ECG Impression Date: Feb 07, 2019 Initial ECG Impression Time: 16:28 Initial ECG Rate: 100 Initial ECG Rhythm: Normal Sinus Initial ECG Intervals: Normal Initial ECG Impression: Nonspecific Changes (SINCERE NGUYEN MD) Diagnostic Imaging Diagonstic Imaging: Xray Plain Films/CT/US/NM/MRI: chest Comments NAME: ANA WALKER [facility] REC#: [id number] PHYSICIAN: SINCERE NGUYEN MD CC: EVON HUMPHREY MD; SINCERE NGUYEN MD Page 1 of 1 RADIOLOGY REPORT [facility] [place] CC: EVON HUMPHREY MD; SINCERE NGUYEN MD Page 1 of 1 RADIOLOGY REPORT NAME: ANA WALKER [facility] REC#: [id number] PT STATUS: REG ER : 1937 PHYSICIAN: SINCERE NGUYEN MD ADMIT DATE: 02/07/19/ER Signed Date of Exam: 02/07/19 CHEST 1 VIEW, AP/PA ONLY INDICATION: Shortness of breath and weakness. EXAMINATION: Portable chest at 4:18 p.m. FINDINGS: Heart size and pulmonary vascularity are normal. Lungs are clear. There are no effusions or pneumothoraces. IMPRESSION: Negative chest. Dictated by: Dictated on workstation # [id number] Dict: 02/07/19 1624 Trans: 02/07/19 1722 Interpreted by: EVON HUMPHREY MD Electronically signed by: EVON HUMPHREY MD 02/07/19 1722 Reviewed: Reviewed by Me (MARIIA BANEGAS) Departure Impression Primary Impression: Gastroenteritis and colitis, viral Additional Impression: Delirium Disposition: 01 HOME, SELF-CARE Condition: Stable Departure-Patient Inst. Decision time for Depature: 21:17 (MARIIA BANEGAS) Referrals: DAPHNE BUTCHER MD (PCP/Family) Primary Care Physician Patient Instructions: Delirium (Confusion) (DC), Viral Gastroenteritis, Adult ( DC) Add. Discharge Instructions: He has diarrhea given 2 tablets of loperamide followed by one tablet every 4 hours afterwards that he still having watery stools. Use the Zofran 1 tablet under the tongue every 6 hours as needed for nausea. You can treat his body aches with Tylenol and/or Motrin. Plan to follow up Tuesday with primary care provider. We advised to return to the ER if you're having difficulty controlling his nausea vomiting or diarrhea despite the medications provided. All discharge instructions reviewed with patient and/or family. Voiced understanding. Scripts Ondansetron (Ondansetron Odt) 4 Mg Tab.rapdis 4 MG PO Q6H PRN for NAUSEA/VOMITING, #14 TAB 0 Refills Prov: MARIIA BANEGAS 02/07/19 SINCERE NGUYEN MD Feb 07, 2019 16:15 MARIIA BANEGAS Feb 07, 2019 19:19
--- NOTE | 2019-02-07 16:26 | Diagnostic Imaging Report ---
INDICATION: Shortness of breath and weakness. EXAMINATION: Portable chest at 4:18 p.m. FINDINGS: Heart size and pulmonary vascularity are normal. Lungs are clear. There are no effusions or pneumothoraces. IMPRESSION: Negative chest. Dictated by: Dictated on workstation # [id number]
[2019-02-07 16:35] LABS: BASOPHILS % (AUTO) 0 % (0-10); EOSINOPHILS % (AUTO) 0 % (0-10); HEMATOCRIT 41 % (40-54); HEMOGLOBIN 13.8 G/DL (13.3-17.7); LYMPHOCYTES # (AUTO) 1.6 X 10^3 (1.0-4.0); LYMPHOCYTES % (AUTO) 12 % (12-44); MEAN CORPUSCULAR HEMOGLOBIN 30 PG (25-34); MEAN CORPUSCULAR HGB CONC 34 G/DL (32-36); MEAN CORPUSCULAR VOLUME 89 FL (80-99); MEAN PLATELET VOLUME 9.9 FL (7.4-10.4); MONOCYTES # (AUTO) 0.9 X 10^3 (0.0-1.0); MONOCYTES % (AUTO) 7 % (0-12); NEUTROPHILS # (AUTO) 10.2 X 10^3 (1.8-7.8); NEUTROPHILS % (AUTO) 80 % (42-75); PLATELET COUNT 236 10^3/uL (130-400); RED CELL DISTRIBUTION WIDTH 13.6 % (10.0-14.5); WHITE BLOOD COUNT 12.7 10^3/uL (4.3-11.0)
[2019-02-07] MEDS ORDERED: LORazepam INJ 2 MG/ML (ATIVAN) VIAL ONE (16:49)
[2019-02-07 16:58] LABS: ALANINE AMINOTRANSFERASE 18 U/L (0-55); ALBUMIN 4.2 GM/DL (3.2-4.5); ALKALINE PHOSPHATASE 82 U/L (40-136); BILIRUBIN,TOTAL 1.8 MG/DL (0.1-1.0); BUN/CREATININE RATIO 14; CARBON DIOXIDE 21 MMOL/L (21-32); CHLORIDE 107 MMOL/L (98-107); CREATININE SERUM 1.04 MG/DL (0.60-1.30); GFR ESTIMATED > 60; GLUCOSE 103 MG/DL (70-105); MAGNESIUM 1.6 MG/DL (1.8-2.4); POTASSIUM 3.9 MMOL/L (3.6-5.0); SODIUM 139 MMOL/L (135-145); TOTAL PROTEIN 7.1 GM/DL (6.4-8.2)
[2019-02-07] MEDS ORDERED: LORazepam INJ 2 MG/ML (ATIVAN) VIAL IVP PRN (17:00)
[2019-02-07] MEDS ORDERED: NS 1000 ML IV BAG IV ONE (18:00)
[2019-02-07] MEDS ORDERED: MAGNESIUM 1 GM/100 ML IVPB 100 ML IV ONE (20:15)
[2019-02-07] MEDS ORDERED: ONDA4TAB11 PO (20:38)
[2019-02-07] MEDS ORDERED: RX-ONDANSETRON 4 MG ODT (ZOFRAN) PPK #4 PO STA (20:39)
[2019-02-07] MEDS ORDERED: LOPERAMIDE 2 MG (IMODIUM) CAP PO ONE (20:45)
[2019-02-07 21:30] VITALS: BP 152/83
== END 2019-02-07 21:30 | disposition home or self-care (01) ==
LOC: EDUNIT# 15:32 → ER 15:34
DX: A08.4 Viral intestinal infection, unspecified (principal); R41.0 Disorientation, unspecified; G47.30 Sleep apnea, unspecified; I10 Essential (primary) hypertension; Z82.49 Family history of ischemic heart disease and other diseases of the circulatory system; Z87.19 Personal history of other diseases of the digestive system; Z87.442 Personal history of urinary calculi; Z88.0 Allergy status to penicillin; Z88.8 Allergy status to other drugs, medicaments and biological substances; Z91.041 Radiographic dye allergy status; Z79.02 Long term (current) use of antithrombotics/antiplatelets; Z95.5 Presence of coronary angioplasty implant and graft; Z98.890 Other specified postprocedural states
CPT/HCPCS: 36415; 51702; 71045; 80053; 82962; 83605; 83690; 83735; 84484; 85025; 93005; 93041

== ENCOUNTER → 2019-03-15 | Outpatient (CLI) | payer MEDICARE ==
[~2019-03-15] MED LIST changes: +ONDA4TAB11 PO
--- NOTE | 2019-03-15 08:58 | Diagnostic Imaging Report ---
Indication: Abdominal aortic aneurysm, status post repair 8 months ago. Correlation is made with prior CT study from 12/19/2018. Treated abdominal aortic aneurysm with an aortic stent graft is again seen. The AP dimensions of the excluded aneurysm sac is approximately 6.4 cm AP compared with 6.[address] Transverse dimension is approximately 7.1 cm compared with 6.8 cm. No definite flow in the excluded aneurysm sac is identified. No liat-aortic fluid collection is identified. Impression: Overall similar to slight increase in size to the treated infrarenal abdominal aortic aneurysm when compared with CT study from 12/19/2018. Prior CT did demonstrate an endoleak. No perianeurysmal fluid collection is identified. Dictated by: Dictated on workstation # [id number]
== END ==
LOC: RAD 07:34
PROVIDERS: ATTEND Nurse Practitioner Family
DX: I71.4 Abdominal aortic aneurysm, without rupture (principal); Z98.890 Other specified postprocedural states
CPT/HCPCS: 76775

== ENCOUNTER 2019-03-23 17:54 | Emergency (ER) | payer MEDICARE ==
[~2019-03-23] VITALS: Ht 182.9 cm; Wt 93.2 kg
[2019-03-23] MEDS ORDERED: TETANUS,DIPTH,PERTUSS P/F (BOOSTRIX) 0.5 ML VIAL IM ONE (18:15)
--- NOTE | 2019-03-23 18:29 | ED Head Injury ---
General Chief Complaint: Laceration Stated Complaint: FALL,HEAD LAC Nursing Triage Note: PT WAS WALKING OUTSIDE AND HIT HIS HEAD ON A TREE BRANCH. PT IS ON BLOOD THINNERS. PT HAS AN EXISTING ANURESYM. PT DENIES LOC OR NECK TENDERNESS. PT UNSURE WHEN LAST TDAP WAS. Source: patient Exam Limitations: no limitations History of Present Illness Date Seen by Provider: Mar 23, 2019 Time Seen by Provider: 18:00 Initial Comments 84-year-old male who presents to the emergency room with complaints of hitting his head on a tree branch. He reports that he was pulling a broken tree branch down out of the tree when it came loose and struck him on the scalp. He denies loss of consciousness, neck pain, or other injuries. He has a small puncture to the right side of his scalp. He reports that he is on blood thinners and has a existing aneurysm. He is unsure of last tetanus vaccine. Occurred: just prior to arrival Loss of Consciousness: no loss of consciousness Allergies and Home Medications Allergies Coded Allergies: amoxicillin (Verified Allergy, Severe, RASH, 12/26/18) clavulanic acid (Verified Allergy, Severe, RASH, 12/26/18) Iodinated Contrast- Oral and IV Dye (Verified Allergy, Unknown, 12/26/18) Home Medications Acetaminophen 500 Mg Tablet, 1,000 MG PO DAILY PRN for PAIN OR FEVER, (Reported) Allopurinol 100 Mg Tablet, 100 MG PO DAILY, (Reported) Atorvastatin Calcium 40 Mg Tablet, 40 MG PO HS, (Reported) Cetirizine HCl 10 Mg Tablet, 10 MG PO DAILY, (Reported) Cholecalciferol (Vitamin D3) 2,000 Unit Tablet, 2,000 UNIT PO DAILY@1200, (Reported) Citalopram Hydrobromide 20 Mg Tablet, 20 MG PO DAILY, (Reported) Clopidogrel Bisulfate 75 Mg Tablet, 75 MG PO DAILY, (Reported) Fluticasone Propionate 9.9 Ml [place].susp, 1 SPRAY NSEACH HS PRN for ALLERGIES, (Reported) Losartan Potassium 50 Mg Tablet, 50 MG PO DAILY, (Reported) Multivitamin 1 Each Tablet, 0.5 TAB PO HS, (Reported) Ondansetron 4 Mg Tab.rapdis, 4 MG PO Q6H PRN for NAUSEA/VOMITING Prescribed by: MARIIA BANEGAS on 02/07/192037 Pantoprazole Sodium 40 Mg Tablet.dr, 40 MG PO DAILY, (Reported) Spironolactone 25 Mg Tablet, 25 MG PO DAILY, (Reported) Sucralfate 1 Gm Tablet, 1 GM PO QID Prescribed by: WALI SALAZAR on 10/25/17 1119 Tamsulosin HCl 0.4 Mg Cap, 0.4 MG PO HS, (Reported) Vitamin B Complex 1 Each Tablet, 1 EACH PO DAILY, (Reported) Patient Home Medication List Home Medication List Reviewed: Yes Review of Systems Review of Systems Constitutional: see HPI; No chills, No fever Skin: see HPI, other (puncture wound to scalp) All Other Systems Reviewed Negative Unless Noted: Yes Past Gvcoked-Ruxilr-Mtaiyk Hx Past Med/Social Hx: Reviewed Nursing Past Med/Soc Hx Patient Social History Alcohol Use: Denies Use Recreational Drug Use: No Smoking Status: Never a Smoker 2nd Hand Smoke Exposure: No Recent Foreign Travel: No Contact w/Someone Who Travel: No Recent Infectious Disease Expo: No Recent Hopitalizations: Yes (12/2018-DIVERTICULITIS/GI BLEED) Physical Abuse: No Sexual Abuse: No Mistreated: No Fear: No Immunizations Up To Date Date of Pneumonia Vaccine: Jun 11, 2017 Date of Influenza Vaccine: Jul 08, 2018 Seasonal Allergies Seasonal Allergies: Yes Past Medical History Surgeries: Yes (HEART STENTS X8, HEART BALLOONS X5, BILAT INGUINAL HERNIA, ) Coronary Stent, Gallbladder Respiratory: Yes (USES CPAP) Sleep Apnea Currently Using CPAP: Yes Currently Using BIPAP: No Cardiac: Yes (STENTS X8 TOTAL, 5 HEART BALLOON PROCEDURES) Aneurysm, Hypertension Neurological: No Reproductive Disorders: No Sexually Transmitted Disease: No HIV/AIDS: No Genitourinary: Yes Kidney Stones Gastrointestinal: Yes Abdominal Hernia, Diverticulosis Musculoskeletal: Yes Arthritis Endocrine: No HEENT: Yes (READING GLASSES) Loss of Vision: Bilateral Hearing Impairment: Hard of Hearing, Bilateral Hearing Aide Cancer: No Psychosocial: No Integumentary: No Blood Disorders: No Adverse Reaction/Blood Tranf: No (N/A) Family Medical History Reviewed Nursing Family Hx Heart Disease, Hypertension Physical Exam Vital Signs Vital Signs - First Documented 03/23/19 17:58 Temp 97.6 Pulse 68 Resp 18 B/P (MAP) 149/91 (110) Pulse Ox 94 O2 Delivery Room Air Capillary Refill : Less Than 3 Seconds Height, Weight, BMI Height: 6'0" Weight: 205lbs. 6.0oz. 93.212932qv; 28.7 BMI Method:Stated General Appearance: WD/WN, no apparent distress Cardiovascular: normal peripheral pulses, regular rate, rhythm, no edema, no gallop, no JVD, no murmur Respiratory: chest non-tender, lungs clear, normal breath sounds, no respiratory distress, no accessory muscle use Extremities: normal capillary refill Psychiatric: alert, oriented x 3 Crainal Nerves: normal hearing, normal speech, PERRL Coordination/Gait: normal finger to nose, normal gait Motor/Sensory: no motor deficit, no sensory deficit Skin: normal color, warm/dry, other (puncture wound to the right side of scalp. Was cleaned and irrigated with normal saline and Betasept. Bleeding is controlled. Sterile dressing was applied.) [place] Coma Score Best Eye Response: (4) Open Spontaneously Best Verbal Response: (5) Oriented Best Motor Response: (6) Obeys Commands [place]ona Total: 15 Progress/Results/Core Measures Results/Orders My Orders Medications Given in ED Vital Signs/I&O Blood Pressure Mean: 110 Departure Impression Primary Impression: Puncture wound of scalp Disposition: 01 HOME, SELF-CARE Condition: Stable/Unchanged Departure-Patient Inst. Decision time for Depature: 20:21 Referrals: DAPHNE BHATT MD (PCP/Family) Primary Care Physician Patient Instructions: Skin Abrasions (DC) Add. Discharge Instructions: Resume your home medications as previously prescribed. Keep your appointment as scheduled with your neurovascular surgeon for management of your aneurysm. Return back to the emergency room for worsening symptoms or concerns as needed. All discharge instructions reviewed with patient and/or family. Voiced understanding. SARA MARQUEZ Mar 23, 2019 18:29
--- OUTSIDE RECORDS SUMMARY | 2019-03-23 19:03 | XMS REPORT | Encounter Summary ---
Author Author [facility] Organization [facility] Address Unknown Phone Unavailable Care Team Providers Care Merchandise Flow Team Member Name Role Phone Michael Velasquez MD Unavailable Lesley Butcher MD PCP Reason for Visit * Reason Comments Appointment Cochlear Implant Encounter Details Care Team Description Date Type Department Mirella Kent AUD Appointment (Cochlear Implant) 01/02/2019 Telephone [facility] [address] [facility] [address] [place] [address] Social History Date Tobacco Use Types Packs/Day Years Used Never Smoker Smokeless Tobacco: Never Used Alcohol Use Drinks/Week oz/Week Comments Yes 1 Cans of 12.0 beer Sex Assigned at Date Recorded Not on file Industry Job Start Date Occupation Not on file Not on file Not on file Travel End Travel History Travel Start No recent travel history available. documented as of this encounter Miscellaneous Notes * Telephone Encounter - Mirella Kent AUD - 01/02/2019 9:53 PM CDT Spoke to patient's who requested sooner appointment than one scheduled in 2018. Since having skin flap thinned and programming 11/19/18, they do not feel he is he aring well and report his magnet still does not stick. This is not an acute pro blem. Appointment 3 weeks sooner was made at their convenience. documented in this encounter Plan of Treatment Not on filedocumented as of this encounter Visit Diagnoses Not on filedocumented in this encounter
--- OUTSIDE RECORDS SUMMARY | 2019-03-23 19:03 | XMS REPORT | Clinical Summary ---
Author Author [facility] Organization [facility] Address Unknown Phone Unavailable Care Team Providers Care Traveling Auditor Name Role Phone Michael Velasquez MD Unavailable Lesley Butcher MD PCP Source Comments Some departments are not documenting in the electronic medical record. If you d o not see the information that you expected, contact Release of Information in [facility] [employer] Information Management department at [phone] for further assistan ce in locating additional records.[facility] Allergies No Known Allergies Medications End [...] Overview: Added automatically from request for surgery [id number] Encounters Care Team Description Date Type Specialty Karis Castro AUD Dizziness 02/05/2019 Procedure visit Otolaryngology Monalisa Leon AUD Sensorineural hearing loss (SNHL) of both ears 02/05/2019 Clinical Otolaryngology Support Mirella Kent AUD Appointment (Cochlear Implant) 01/02/2019 Telephone Otolaryngology from Last 3 Months Social History Date [...] Taken Vital Sign Reading 11/29/2018 1:29 PM ENROLLMENT MANAGEMENT COORDINATOR Blood Pressure 116/75 11/29/2018 1:29 PM ENROLLMENT MANAGEMENT COORDINATOR Pulse 92 11/03/2018 11:45 AM ENROLLMENT MANAGEMENT COORDINATOR Temperature 37.2 C (99 F) - Respiratory Rate - 11/03/2018 11:45 AM ENROLLMENT MANAGEMENT COORDINATOR Oxygen Saturation 93% - Inhaled Oxygen - Concentration 11/29/2018 1:29 PM ENROLLMENT MANAGEMENT COORDINATOR Weight 97.1 kg (214 lb) 11/29/2018 1:29 PM ENROLLMENT MANAGEMENT COORDINATOR Height 182.9 cm (6') 11/29/2018 1:29 PM ENROLLMENT MANAGEMENT COORDINATOR Body Mass Index 29.02 Plan of Treatment Health Maintenance Due Date Last Done Comments PHYSICAL (COMPREHENSIVE) 01/16/1942 EXAM DTAP/TDAP VACCINES (1 - 1955 Tdap) SHINGLES RECOMBINANT 1987 VACCINE (1 of 2) PNEUMONIA (PCV13/PPSV23) 2002 VACCINES (1 of 2 - PCV13) INFLUENZA VACCINE 07/17/2019 08/14/2010, 09/23/2006, 09/19/2003, Additional history exists Implants Device Identifier Shelf Expiration Date Model / Serial / Lot Implanted Type Area Manufactur er 11/16/2020 CI-[id number] / [id number] / [id number] Implant Cochlear Hires Ultra Right: Ear UNIDENTIFI [employer] Electrode Sterile ED MFG - [id number] Implanted: Qty: 1 on 02/24/2018 by Yung Moreno MD Procedures Comments Procedure Name Priority Date/Time Associated Diagnosis COCHLEAR IMPLANT Routine 02/07/2019 OUTCOMES-AUDIOGRAM SINUSOIDAL ROTATIONAL Routine 02/05/2019 TEST SINUSOIDAL ROTATIONAL Routine 02/05/2019 TEST from Last 3 Months Results * COCHLEAR IMPLANT OUTCOMES-AUDIOGRAM (02/07/2019) Narrative Performed At Performing Organization Address City/State/Zipcode Phone Number IN CLINIC * SINUSOIDAL ROTATIONAL TEST (02/05/2019) Narrative Performed At Performing Organization Address City/State/Zipcode Phone Number IN CLINIC * SINUSOIDAL ROTATIONAL TEST (02/05/2019) Narrative Performed At Performing Organization Address City/State/Zipcode Phone Number IN CLINIC from Last 3 Months Insurance Type Payer Benefit Subscriber ID Effective Phone Address Plan / Dates Group Medicare MEDICARE MEDICARE xxxxxxxxxx 2001-P PART A AND resent B Medicare BS BCBS xxxxxxxxxxxx 2017-P SUPPLEMENT resent Advance Directives Patient has advance care planning documents on file. For more information, graham song contact: [facility] [address] [place] [address]
--- OUTSIDE RECORDS SUMMARY | 2019-03-23 19:03 | XMS REPORT | Encounter Summary ---
Author Author [facility] Organization [facility] Address Unknown Phone Unavailable Care Team Providers Care Rfid Technician Name Role Phone Michael Velasquez MD Unavailable Lesley Butcher MD PCP Reason for Visit * Reason Comments Vestibular Testing Encounter Details Care Team Description Date Type Department Karis Castro, AUD [address] [place] [address] Dizziness 02/05/[address] [facility] [address] [place] [address] Social History Date Tobacco Use [...] history available. documented as of this encounter Plan of Treatment Not on filedocumented as of this encounter Procedures Comments Procedure Name Priority Date/Time Associated Diagnosis SINUSOIDAL ROTATIONAL Routine 02/05/2019 TEST SINUSOIDAL ROTATIONAL Routine 02/05/2019 TEST documented in this encounter Visit Diagnoses Diagnosis Dizziness Dizziness and giddiness documented in this encounter
--- OUTSIDE RECORDS SUMMARY | 2019-03-23 19:03 | XMS REPORT | Encounter Summary ---
Author Author [facility] Organization [facility] Address Unknown Phone Unavailable Care Team Providers Care Manganese Heater Name Role Phone Michael Velasquez MD Unavailable Lesley Butcher MD PCP Reason for Visit * Reason Comments Cochlear Implant Encounter Details Care Team Description Date Type Department Monalisa Leon AUD Sensorineural hearing loss (SNHL) of both ears 02/05/2019 Clinical [facility] [address] [place] [address] Social History Date Tobacco Use [...] history available. documented as of this encounter Progress Notes * Monalisa Leon AUD - 02/05/2019 1:30 PM CDT Estrada Godoy was seen in the clinic today for continued programming of h is [employer] cochlear implant. He is here with his and daughter. 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 He has only worn a hearing aid in the left ear for a number of years. Mr. Godoy continues to be very dizzy. He is utilizing a cane now. and daughter report he has fallen a number of times and has many medical issues sin ce I saw him last. Family thinks he is hearing worse - almost like it was befor e the implant. They are wondering if it is his hearing or if something else is going on such as memory. Internal Device Ear Water Plant Operator Internal Device Initial Stimulation Date Surgery Date Time Post Initial Stimulation Surgeon R [employer] Linda Feliciano MS 03/10/18 02/24/18 11 months Yung Moreno MD Equipment: Ear Processor(s) Serial Number Magnet Strength Processor Condition R Beena CI [id number] good Equipment: good - primary cable is starting to fray. Counseled to watch this an d when it does break to contact [employer] to ship a replacement cable. Mr. Walt raphael ontinues to report his processor to fall off his ear often. His ears are not ve ry stiff so I wonder if the process is heavy enough to be coming off his ear. I recommend we try an earmold on the processor to help with retention. He will t ry his old hearing aid earmold (possibly having it re-tubed by his hearing aid p erson near where he lives). I swapped out his tone hook with the earmold adapte d tone hook today. Incision site: healing well Magnet site: good - attaching better than previously but still on the looser iván e after skin flap thinning. Otoscopy: DNT Programming: Impedances: within normal limits Electrodes Deactiveated: none Data Logging: Ms were measured to most comfortable volume in sound bursts then balanced for loudness on each electrode across the array. Map is fairly stable. Mr. Godoy reports good sound quality. Ms were inc reased slightly to balance volume with his hearing aid in the contralateral ear. Maps/Programs: Program Beena CI Q90 Processor 1 Omni directional 2 autoUltraZoom *Back up was programmed the same. Aided Testing: Testing was completed today with a Beena CI processor in the right ear and his B eltone BTE in the left ear. Test 11/04/17 (pre-op) 04/07/18 (1 month) 06/09/18 (3 months) 11/29/18 (8 months) 02/05/19 (11 months) [employer] (quiet) - CI only 32% 53% 49% 45% 59% [employer] (quiet) - CI + JORDAN 73% 82% 76% 71% 77% [employer] (+5 dB SNR) - CI + JORDAN 36% 30% 35% 41% 37% CNC (words) - CI only DNT 38% 52% 30% DNT CNC (phonemes) - CI only DNT 61% 73% 49% DNT CNC (words) - CI + JORDAN DNT DNT 64% 54% DNT CNC (phonemes) - CI + JORDAN DNT DNT 81% 71% DNT Evaluation of Aural Rehabilitation Status: 35 min. Aided soundfield thresholds are within acceptable limits at all test frequenc ies. Outcomes with his CI are good - in fact, slightly better than at his 1 month visit. Re-testing of his left (non-implant ear) indicate stable thresholds but a dec rease in WRS. The decrease of 20% in WRS in his better hearing side will have a n impact on his overall perceived understanding abilities. Hearing Aid: Patient wears a BTE from [employer] Water Plant Operator: [employer] Model: Serial Numbers: Repair Warranty: L&D Warranty: Battery: 675 Domes: full mold Programs: Volume: Summary: Programming was completed to Mr. Godoy' satisfaction. Soundfield audiogram indicate acceptable thresholds at all tested frequencies. Outcomes are stable i f not improved from where they were at his last visit. Testing of his left (non -implant ear) indicate stable thresholds but a decrease in WRS. This 20% decrea se in WRS in the left ear will have an impact on his perceived hearing status. As far as his dizziness, Maksim Taylor, completed rotary chair today. Res ults indicate worse results than previously tested in July. This is telling us that Mr. Godoy is not compensating for his vestibular weakness on the rig ht side. He reports his current vestibular therapist says there is nothing more that he can do. His family was counseled to continue with vestibular therapy b ut it may be best to find a different therapist. They are open to this. I do not believe Mr. Godoy decrease in understanding is an issue with his he aring. Aided thresholds are good and performance is about the same as it was at his 1 month visit when he and the family reported he was hearing great. The de crease in his better hearing ear will have an impact on his understanding but no t to the extent his family is reporting. Family is reporting other concerns for memory that are non-auditory (ex: "He won't remember that he ate breakfast this morning or that he cut the grass yesterday."). In Dr. Moreno's last note, he ment ioned getting a CT scan. I will speak with him about moving forward with this ( family would like this to be completed in [place] if possible) and possibly a ref erral to neuro/neuro-psych for memory concerns. Recommendations: Mr. Godoy should return to the clinic in 6 months for re-programming and pos sible outcomes but we can push back to 1 year if he is not having any troubles. documented in this encounter Plan of Treatment Not on filedocumented as of this encounter Procedures Comments Procedure Name Priority Date/Time Associated Diagnosis COCHLEAR IMPLANT Routine 02/07/2019 OUTCOMES-AUDIOGRAM documented in this encounter Visit Diagnoses Diagnosis Sensorineural hearing loss (SNHL) of both ears documented in this encounter
--- NOTE | 2019-03-23 19:08 | Diagnostic Imaging Report ---
PROCEDURE: CT head without contrast. TECHNIQUE: Multiple contiguous axial images were obtained through the brain without the use of intravenous contrast. Auto Exposure Controls were utilized during the CT exam to meet ALARA standards for radiation dose reduction. INDICATION: Head injury. COMPARISON: November 10, 2017. FINDINGS: Mild atrophy, particularly central atrophy. However, ventricular size has increased since the prior examination. Cochlear device is identified overlying the right skull. There is resulting beam hardening artifact which limits evaluation of the adjacent structures. No midline shift. 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 This measures up to 2.5 cm in transverse dimension. There is resulting mass effect upon the radha. 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 Scattered vascular calcifications. The orbits are unremarkable. High right parietal scalp swelling and hematoma. Postsurgical changes of a right mastoidectomy. The calvarium is intact. The paranasal sinuses are clear. IMPRESSION: Prominence of the ventricular system, increased since the prior examination from October 2017. This may relate to developing hydrocephalus. Worsening central atrophy felt less likely given the degree of change. 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 This appears stable to slightly increased in size since the prior exam. Interval placement of a right cochlear device which slightly limits evaluation. Right parietal scalp hematoma without underlying calvarial fracture. Background chronic ischemic changes. Dictated by: Dictated on workstation # [id number]
--- OUTSIDE RECORDS SUMMARY | 2019-03-23 19:08 | XMS REPORT | CCD ---
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 Name Role Phone PP Unavailable CCM Unavailable Summary Purpose Interface Exchange Insurance Providers Payer name Policy type / Coverage type Covered constitution party ID Effective Begin Date Effective End Date WPS Medicare Part B Medicare Part B [id number] 2018 Unknown [facility] Medicare Part B [id number] 2018 Unknown Family history Father Diagnosis Age At Onset Hypertension Unknown Coronary Artery Disease Unknown Sister Diagnosis Age At Onset Heart disease Unknown Mother Diagnosis Age At Onset Coronary Artery Disease Unknown Hypertension Unknown Social History Social History Element Codes Description Effective Dates Marital status Unknown 02/19/2015 Number of children Unknown 2 02/19/2015 Employment Unknown Retired 02/19/[address]: 316868710 Has never smoked or chewed tobacco 02/19/2015 Alcohol history Unknown occasionally drinks alcohol 02/19/2015 Allergies, Adverse Reactions, Alerts Substance Reaction Codes Entered Date Inactivated Date Status bactrim RxNorm: 356867 12/19/2015 No Inactive Date Active ciprofloxacin RxNorm: 64179 02/18/2015 No Inactive Date Active Past Medical History Illness Codes Condition Status Onset Date Resolved Date Abdominal aortic aneurysm, without rupture ICD-9: 441.4 ICD-10: I71.4 Active 03/05/2019 Unknown Essential (primary) hypertension ICD-9: 401.1 ICD-10: I10 Active 06/27/2016 Unknown Unsteadiness on feet ICD- 9: 781.2 ICD-10: R26.81 Active 03/05/2019 Unknown Frequency of micturition ICD-9: 788.41 ICD-10: R35.0 Active 02/12/2019 Unknown Paroxysmal atrial fibrillation ICD-9: 427.31 ICD-10: I48.0 Active 02/12/2019 Unknown Dizziness and giddiness ICD-9: 780.4 ICD-10: R42 Active 07/26/2018 Unknown Dyspnea, unspecified ICD- 9: 786.09 ICD-10: R06.00 Active 11/26/2015 Unknown Mixed hyperlipidemia ICD- 9: 272.2 ICD-10: E78.2 Active 02/16/2016 Unknown Vertigo of central origin, 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 Active 07/26/2018 Unknown Pleurodynia ICD-9: 786.50 ICD-10: R07.81 Active 2019 Unknown Other allergic rhinitis ICD-9: 477.8 ICD-10: J30.89 Active 01/08/2019 Unknown Obstructive sleep apnea (adult) (pediatric) ICD-9: 327.23 ICD-10: G47.33 Active 12/13/2018 Unknown Other fatigue ICD-9: 780.79 ICD-10: R53.83 Active 11/27/2018 Unknown Other malaise ICD-9: 780.79 ICD-10: R53.81 Active 12/08/2017 Unknown Shortness of breath ICD- 9: 786.05 ICD-10: R06.02 Active 11/27/2018 Unknown Muscle weakness (generalized) ICD-9: 728.87 ICD-10: M62.81 Active 11/27/2018 Unknown Essential (primary) hypertension ICD-9: 401.9 ICD-10: I10 Active 02/18/2015 Unknown Low back pain ICD-9: 724.2 ICD-10: M54.5 Active 09/26/2018 Unknown Encounter for general adult medical examination [...] ICD-9: 389.11 ICD-10: H90.3 Active 09/01/2017 Unknown Fever, unspecified ICD- 9: 780.60 ICD-10: R50.9 Active 12/08/2017 Unknown Benign prostatic hyperplasia without lower urinary tract symptoms ICD-9: 600.00 ICD-10: N40.0 Active 01/03/2017 Unknown Dysphagia, pharyngeal phase ICD-9: 787.23 ICD-10: R13.13 Active 09/29/2017 Unknown Urge incontinence ICD-9: 788.31 ICD-10: N39.41 Active 09/27/2016 Unknown Laceration without foreign body of right forearm, initial encounter ICD-9: 881.00 ICD-10: S51.811A Active 06/27/2016 Unknown Laceration without foreign body of left forearm, initial encounter ICD-9: 881.00 ICD-10: S51.812A Active 06/27/2016 Unknown Idiopathic gout, left ankle and foot ICD-9: 274.00 ICD-10: M10.072 Active 04/26/2016 Unknown Localized edema ICD-9: 782.3 ICD-10: R60.0 Active 01/19/2016 Unknown Major depressive disorder, single episode, unspecified ICD-9: 311 ICD-10: F32.9 Active 01/19/2016 Unknown Gout, unspecified ICD-9: 274.9 ICD-10: M10.9 Active 12/15/2015 Unknown Hypotension, unspecified ICD-9: 458.9 ICD-10: I95.9 Active 12/15/2015 Unknown Hypoxemia ICD-9: 799.02 ICD-10: R09.02 Active 11/26/2015 Unknown Gastro-esophageal reflux disease without esophagitis ICD-9: 530.81 ICD-10: K21.9 Active 07/29/2015 Unknown ESSENTIAL HYPERTENSION ICD-9: 401.9 Active 02/18/2015 Unknown Depression Unknown Active 02/19/2015 Unknown Hypertension Unknown Active 02/19/2015 Unknown DEPRESSIVE DISORDER NEC ICD-9: 311 Active 02/18/2015 Unknown Encounter for screening fecal occult blood testing ICD-9: V76.51 Active 02/18/2015 Unknown Enlarged prostate ICD-9: 600.00 Active 02/18/2015 Unknown Nasal inflammation due to allergen ICD-9: 477.9 Active 02/18/2015 Unknown Problems Condition Codes Effective Dates Condition Status Abdominal aortic aneurysm, without rupture ICD-9: 441.4 ICD-10: I71.4 03/05/2019 Active Essential (primary) hypertension ICD-9: 401.1 ICD-10: I10 06/27/2016 Active Unsteadiness on feet ICD- 9: 781.2 ICD-10: R26.81 03/05/2019 Active Frequency of micturition ICD-9: 788.41 ICD-10: R35.0 02/12/2019 Active Paroxysmal atrial fibrillation ICD-9: 427.31 ICD-10: I48.0 02/12/2019 Active Dizziness and giddiness ICD-9: 780.4 ICD-10: R42 07/26/2018 Active Dyspnea, unspecified ICD- 9: 786.09 ICD-10: R06.00 11/26/2015 Active Mixed hyperlipidemia ICD- 9: 272.2 ICD-10: E78.2 02/16/2016 Active Vertigo of central origin, 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 07/26/2018 Active Pleurodynia ICD-9: 786.50 ICD-10: R07.81 2019 Active Other allergic rhinitis ICD-9: 477.8 ICD-10: J30.89 01/08/2019 Active Obstructive sleep apnea (adult) (pediatric) ICD-9: 327.23 ICD-10: G47.33 12/13/2018 Active Other fatigue ICD-9: 780.79 ICD-10: R53.83 11/27/2018 Active Other malaise ICD-9: 780.79 ICD-10: R53.81 12/08/2017 Active Shortness of breath ICD- 9: 786.05 ICD-10: R06.02 11/27/2018 Active Muscle weakness (generalized) ICD-9: 728.87 ICD-10: M62.81 11/27/2018 Active Essential (primary) hypertension ICD-9: 401.9 ICD-10: I10 02/18/2015 Active Low back pain ICD-9: 724.2 ICD-10: M54.5 09/26/2018 Active Encounter for general adult medical examination [...] bilateral ICD-9: 389.11 ICD-10: H90.3 09/01/2017 Active Fever, unspecified ICD- 9: 780.60 ICD-10: R50.9 12/08/2017 Active Benign prostatic hyperplasia without lower urinary tract symptoms ICD-9: 600.00 ICD-10: N40.0 01/03/2017 Active Dysphagia, pharyngeal phase ICD-9: 787.23 ICD-10: R13.13 09/29/2017 Active Urge incontinence ICD-9: 788.31 ICD-10: N39.41 09/27/2016 Active Laceration without foreign body of right forearm, initial encounter ICD-9: 881.00 ICD-10: S51.811A 06/27/2016 Active Laceration without foreign body of left forearm, initial encounter ICD-9: 881.00 ICD-10: S51.812A 06/27/2016 Active Idiopathic gout, left ankle and foot ICD-9: 274.00 ICD-10: M10.072 04/26/2016 Active Localized edema ICD-9: 782.3 ICD-10: R60.0 01/19/2016 Active Major depressive disorder, single episode, unspecified ICD-9: 311 ICD-10: F32.9 01/19/2016 Active Gout, unspecified ICD-9: 274.9 ICD-10: M10.9 12/15/2015 Active Hypotension, unspecified ICD-9: 458.9 ICD-10: I95.9 12/15/2015 Active Hypoxemia ICD-9: 799.02 ICD-10: R09.02 11/26/2015 Active Gastro-esophageal reflux disease without esophagitis ICD-9: 530.81 ICD-10: K21.9 07/29/2015 Active ESSENTIAL HYPERTENSION ICD-9: 401.9 02/18/2015 Active Depression Unknown 02/19/2015 Active Hypertension Unknown 02/19/2015 Active DEPRESSIVE DISORDER NEC ICD-9: 311 02/18/2015 Active Encounter for screening fecal occult blood testing ICD-9: V76.51 02/18/2015 Active Enlarged prostate ICD-9: 600.00 02/18/2015 Active Nasal inflammation due to allergen ICD-9: 477.9 02/18/2015 Active Medications Medication Codes Instructions Start Date Stop Date Status Fill Instructions nitroglycerin 0.4 mg sublingual tablet RxNorm: 836200 1 Tablet(s) SL x3 in 15 min as needed 03/05/2019 No Stop Date Active losartan 50 mg tablet RxNorm: 636219 1 Tablet(s) PO daily 02/16/2019 02/10/2020 Active Requip 0.25 mg tablet RxNorm: 449156 1 Tablet(s) PO QHS 01/29/2019 01/23/2020 Active Flomax 0.4 mg capsule RxNorm: 599338 TAKE 1 CAPSULE BY MOUTH ONCE DAILY IN THE EVENING 01/25/2019 No Stop Date Active Requip 0.25 mg tablet RxNorm: 364186 1 Tablet(s) PO QHS 2019 01/28/2019 Inactive pantoprazole 40 mg tablet,delayed release RxNorm: 912794 TAKE ONE TABLET BY MOUTH ONCE DAILY AT BEDTIME 11/27/2018 No Stop Date Active atorvastatin 40 mg tablet RxNorm: 890269 1 Tablet(s) PO daily 09/26/2018 10/25/2018 Inactive dexamethasone 0.5 mg tablet RxNorm: 377599 TAKE 1 TABLET BY MOUTH ONCE DAILY 08/29/2018 No Stop Date Active clonazepam 1 mg tablet RxNorm: 638560 1/2 Tablet(s) PO QHS 08/24/2018 12/21/2018 Inactive allopurinol 100 mg tablet RxNorm: 670862 TAKE ONE TABLET BY MOUTH ONCE DAILY 08/03/2018 No Stop Date Active citalopram 40 mg tablet RxNorm: 456140 TAKE ONE TABLET BY MOUTH ONCE DAILY 06/13/2018 No Stop Date Active Kenalog 40 mg/mL suspension for injection RxNorm: 5265821 Milliliter(s) Inj 06/12/2018 06/12/2018 Inactive clonazepam 1 mg tablet RxNorm: 114214 1 Tablet(s) PO QHS 06/12/2018 08/23/2018 Inactive clonazepam 1 mg tablet RxNorm: 169656 1/2 Tablet(s) TAKE ONE TABLET BY MOUTH ONCE DAILY AT BEDTIME AND ONE TABLET THREE TIMES DAILY NEEDED 05/24/2018 06/11/2018 Inactive citalopram 40 mg tablet RxNorm: 481745 1/2 Tablet(s) TAKE ONE TABLET BY MOUTH ONCE DAILY 05/24/2018 09/25/2018 Inactive losartan 50 mg tablet RxNorm: 181701 1/2 Tablet(s) PO daily 05/24/2018 02/15/2019 Inactive spironolactone 25 mg tablet RxNorm: 231056 TAKE ONE TABLET BY MOUTH ONCE DAILY 05/22/2018 No Stop Date Active dexamethasone 0.5 mg tablet RxNorm: 329884 TAKE ONE TABLET BY MOUTH ONCE DAILY 02/21/2018 08/28/2018 Inactive Flomax 0.4 mg capsule RxNorm: 063093 TAKE ONE CAPSULE BY MOUTH ONCE DAILY IN THE EVENING 12/19/2017 01/24/2019 Inactive Tamiflu 75 mg capsule RxNorm: 820012 1 Capsule(s) PO BID 12/08/2017 12/12/2017 Inactive clonazepam 1 mg tablet RxNorm: 300574 Tablet(s) TAKE ONE TABLET BY MOUTH ONCE DAILY AT BEDTIME AND ONE TABLET THREE TIMES DAILY NEEDED 11/28/2017 01/26/2018 Inactive pantoprazole 40 mg tablet,delayed release RxNorm: 391303 TAKE ONE TABLET BY MOUTH ONCE DAILY AT BEDTIME 11/07/2017 11/26/2018 Inactive allopurinol 100 mg tablet RxNorm: 582699 TAKE ONE TABLET BY MOUTH ONCE DAILY 10/03/2017 08/02/2018 Inactive pantoprazole 40 mg tablet,delayed release RxNorm: 529830 1 Tablet(s) PO BID 09/01/2017 05/28/2018 Inactive Vitamin B-6 100 mg tablet RxNorm: 065159 1 Tablet(s) PO daily 09/01/2017 06/11/2018 Inactive dutasteride 0.5 mg capsule RxNorm: 824704 1 Capsule(s) PO QPM 09/01/2017 06/11/2018 Inactive spironolactone 25 mg tablet RxNorm: 790199 TAKE ONE TABLET BY MOUTH ONCE DAILY 08/15/2017 05/21/2018 Inactive citalopram 40 mg tablet RxNorm: 004481 TAKE ONE TABLET BY MOUTH ONCE DAILY 08/08/2017 05/04/2018 Inactive dexamethasone 0.5 mg tablet RxNorm: 888629 TAKE ONE TABLET BY MOUTH ONCE DAILY 08/08/2017 11/05/2017 Inactive clonazepam 1 mg tablet RxNorm: 220634 TAKE ONE TABLET BY MOUTH ONCE DAILY AT BEDTIME AND ONE THREE TIMES DAILY NEEDED 05/12/2017 08/08/2017 Inactive clonazepam 1 mg tablet RxNorm: 013377 1 Tablet(s) PO QHS AND 1 TAB PO TID PRN 05/12/2017 05/13/2017 Inactive oxybutynin chloride ER 10 mg tablet,extended release 24 hr RxNorm: 912877 1 Tablet(s) PO daily 04/29/2017 08/02/2017 Inactive dexamethasone 0.5 mg tablet RxNorm: 758334 TAKE ONE TABLET BY MOUTH ONCE DAILY 02/14/2017 04/14/2017 Inactive Flomax 0.4 mg capsule RxNorm: 074965 TAKE ONE CAPSULE BY MOUTH ONCE DAILY IN THE EVENING 02/14/2017 11/10/2017 Inactive pantoprazole 40 mg tablet,delayed release RxNorm: 386011 TAKE ONE TABLET BY MOUTH ONCE DAILY AT BEDTIME 02/14/2017 08/31/2017 Inactive oxybutynin chloride ER 10 mg tablet,extended release 24 hr RxNorm: 471683 1 Tablet(s) PO daily 01/25/2017 04/24/2017 Inactive dexamethasone 0.5 mg tablet RxNorm: 431041 TAKE ONE TABLET BY MOUTH ONCE DAILY 11/10/2016 12/09/2016 Inactive oxybutynin chloride ER 5 mg tablet,extended release 24 hr RxNorm: 445200 1 Tablet(s) PO daily 10/28/2016 10/27/2016 Inactive oxybutynin chloride ER 5 mg tablet,extended release 24 hr RxNorm: 808006 1 Tablet(s) PO daily 10/28/2016 01/24/2017 Inactive Detrol LA 2 mg capsule,extended release RxNorm: 919696 1 Capsule(s) PO QPM 10/26/2016 10/27/2016 Inactive clonazepam 1 mg tablet RxNorm: 303162 1 Tablet(s) PO QHS AND 1 TAB PO TID PRN 10/20/2016 04/17/2017 Inactive dexamethasone 0.5 mg tablet RxNorm: 248751 TAKE ONE TABLET BY MOUTH ONCE DAILY 10/06/2016 11/04/2016 Inactive allopurinol 100 mg tablet RxNorm: 928148 1 Tablet(s) PO daily 09/30/2016 09/24/2017 Inactive Vesicare 5 mg tablet RxNorm: 395213 1 Tablet(s) PO QPM 09/27/2016 12/12/2016 Inactive spironolactone 25 mg tablet RxNorm: 174641 1 Tablet(s) PO daily 08/06/2016 07/31/2017 Inactive citalopram 40 mg tablet RxNorm: 876043 1 Tablet(s) PO daily 06/28/2016 06/22/2017 Inactive iron ER 159 mg (45 mg iron) tablet,extended release RxNorm: 159730 1 Tablet(s) PO daily 04/27/2016 08/31/2017 Inactive dexamethasone 0.5 mg tablet RxNorm: 685664 1/2 Tablet(s) PO daily 04/27/2016 02/20/2018 Inactive allopurinol 100 mg tablet RxNorm: 368246 1 Tablet(s) PO daily 04/27/2016 09/29/2016 Inactive Plavix 75 mg tablet RxNorm: 236944 1 Tablet(s) PO daily 04/27/2016 02/11/2019 Inactive clonazepam 1 mg tablet RxNorm: 373560 1 Tablet(s) PO QHS and 1 tab po TID prn 04/14/2016 10/07/2016 Inactive allopurinol 100 mg tablet RxNorm: 270528 1 Tablet(s) PO daily 02/17/2016 04/26/2016 Inactive citalopram 20 mg tablet RxNorm: 707832 1 Tablet(s) PO daily 01/20/2016 06/27/2016 Inactive Flomax 0.4 mg capsule RxNorm: 342558 1 Capsule(s) PO QPM 01/20/2016 01/13/2017 Inactive [SAVINGS FOR NON-COVERED DRUGS -- BIN:[id number], PCN: ASPROD1, Group: XXXXX, ID# [id number], Questions: . THIS IS NOT INSURANCE.] pantoprazole 40 mg tablet,delayed release RxNorm: 585473 1 Tablet(s) PO QHS 01/20/2016 01/13/2017 Inactive Colcrys 0.6 mg tablet RxNorm: 362587 1 Tablet(s) PO daily 01/06/2016 03/05/2016 Inactive take daily x 7 days then daily as needed for gout flair colchicine 0.6 mg tablet RxNorm: 225666 1 Tablet(s) PO BID 12/30/2015 01/01/2016 Inactive doxycycline hyclate 100 mg tablet RxNorm: 216202 1 Tablet(s) PO BID 12/19/2015 12/28/2015 Inactive doxycycline hyclate 100 mg tablet RxNorm: 155592 1 Tablet(s) PO BID 12/19/2015 12/18/2015 Inactive allopurinol 100 mg tablet RxNorm: 410906 1 Tablet(s) PO daily 12/16/2015 02/16/2016 Inactive colchicine 0.6 mg tablet RxNorm: 795440 Tablet(s) PO 1.2 mg PO in the morning and 0.6 mg at night for 2 days. 12/16/2015 12/29/2015 Inactive allopurinol 100 mg tablet RxNorm: 692726 1 Tablet(s) PO daily 12/16/2015 12/15/2015 Inactive Protonix 40 mg tablet,delayed release RxNorm: 378005 1 Tablet(s) PO daily 12/16/2015 01/14/2016 Inactive Bactrim DS 800 mg-160 mg tablet RxNorm: 213649 1 Tablet(s) PO BID 12/16/2015 12/18/2015 Inactive colchicine 0.6 mg tablet RxNorm: 018118 Tablet(s) PO 1.2 mg for the first dose and 0.6 mg an hour after 12/15/2015 12/15/2015 Inactive dexamethasone 0.5 mg tablet RxNorm: 015671 1 Tablet(s) PO 12/12/2015 02/09/2016 Inactive Plavix 75 mg tablet RxNorm: 841103 1 Tablet(s) PO every other day 12/12/2015 04/09/2016 Inactive nitroglycerin 0.4 mg sublingual tablet RxNorm: 417926 1 Tablet(s) SL x3 in 15 min as needed 12/12/2015 04/26/2016 Inactive clonazepam 1 mg tablet RxNorm: 296248 1 Tablet(s) PO QHS and 1 tab po TID prn 12/11/2015 12/03/2016 Inactive Alpine 5 mg-325 mg tablet RxNorm: 092660 1-2 Tablet(s) PO Q6 as needed 12/11/2015 09/26/2016 Inactive clonazepam 1 mg tablet RxNorm: 886250 1 Tablet(s) PO QHS and 1 tab po TID prn 12/04/2015 12/10/2015 Inactive Flomax 0.4 mg capsule RxNorm: 675899 1 Capsule(s) PO QPM 09/22/2015 01/19/2016 Inactive [SAVINGS FOR NON-COVERED DRUGS -- BIN:[id number], PCN: ASPROD1, Group: XXXXX, ID# [id number], Questions: . THIS IS NOT INSURANCE.] Flomax 0.4 mg capsule RxNorm: 727704 1 Capsule(s) PO QPM 09/16/2015 09/21/2015 Inactive [SAVINGS FOR NON-COVERED DRUGS -- BIN:848342, PCN: ASPROD1, Group: XXXXX, ID# [id number], Questions: . THIS IS NOT INSURANCE.] clonazepam 1 mg tablet RxNorm: 809589 1 Tablet(s) PO QHS 08/29/2015 12/03/2015 Inactive coenzyme Q10 10 mg tablet RxNorm: 146563 1 Tablet(s) PO daily 07/30/2015 01/05/2016 Inactive spironolactone 25 mg tablet RxNorm: 368854 1 Tablet(s) PO daily 07/28/2015 07/21/2016 Inactive spironolactone 25 mg tablet RxNorm: 428312 1 Tablet(s) PO daily 07/22/2015 07/27/2015 Inactive clonazepam 1 mg tablet RxNorm: 455637 1 Tablet(s) PO QHS 05/23/2015 08/28/2015 Inactive losartan 25 mg tablet RxNorm: 067579 1 Tablet(s) PO daily 02/19/2015 03/20/2015 Inactive Flonase Allergy Relief 50 mcg/actuation nasal spray,suspension RxNorm: 1 [place] NASAL BID 02/19/2015 04/26/2016 Inactive [SAVINGS FOR NON-COVERED DRUGS -- BIN:260270, PCN: ASPROD1, Group: XXXXX, ID# [id number], Questions: . THIS IS NOT INSURANCE.] Flomax 0.4 mg capsule RxNorm: 875146 1 Capsule(s) PO QPM 02/19/2015 09/15/2015 Inactive [SAVINGS FOR NON-COVERED DRUGS -- BIN:750635, PCN: ASPROD1, Group: XXXXX, ID# XXXXXXX, Questions: . THIS IS NOT INSURANCE.] citalopram 20 mg tablet RxNorm: 888567 1 Tablet(s) PO daily 02/19/2015 03/20/2015 Inactive atenolol 25 mg tablet RxNorm: 585534 1 Tablet(s) PO daily 02/19/2015 03/20/2015 Inactive Lipitor 20 mg tablet RxNorm: 720488 1 Tablet(s) PO daily 02/19/2015 03/20/2015 Inactive vitamin B complex oral RxNorm: 07238 oral No Start Date Active Rachel oral RxNorm: 071850 oral No Start Date Active Lipitor oral RxNorm: 52132 oral No Start Date Active warfarin 3 mg tablet RxNorm: 363176 1 Tablet(s) PO daily No Start Date Active managed by waste picker Dr Deleon aspirin 81 mg capsule,delayed release RxNorm: 668888 1 Capsule(s) PO daily No Start Date Active Aleve 220 mg tablet RxNorm: 309594 Tablet(s) PO as needed No Start Date Active Vitamin D3 1,000 unit capsule RxNorm: 024120 2 Capsule(s) PO daily No Start Date Active Centrum Complete oral RxNorm: 91056 oral No Start Date Active Carafate 1 gram tablet RxNorm: 306680 1 Tablet(s) PO every other day No Start Date Active glucosamine HCl 1,500 mg tablet RxNorm: 965661 1 Tablet(s) with 1200 mg chrondroitin PO daily No Start Date 08/01/2018 Inactive Claritin-D 24 Hour oral RxNorm: 168737 oral No Start Date 01/07/2019 Inactive ranitidine 150 mg tablet RxNorm: 934584 1 Tablet(s) PO TID No Start Date 12/11/2015 Inactive Alpine 5 mg-325 mg tablet RxNorm: 015720 1-2 Tablet(s) PO Q6 as needed No Start Date 12/10/2015 Inactive krill oil oral RxNorm: 61059 oral No Start Date 08/07/2018 Inactive Vitamin B-6 100 mg tablet RxNorm: 198358 1 Tablet(s) PO TID No Start Date 08/31/2017 Inactive spironolactone 25 mg tablet RxNorm: 861779 1 Tablet(s) PO daily No Start Date 07/21/2015 Inactive Vitamin D3 oral RxNorm: 2418 oral No Start Date 02/17/2016 Inactive clonazepam 1 mg tablet RxNorm: 102503 1 Tablet(s) PO daily No Start Date 05/22/2015 Inactive Glucosamine oral RxNorm: 4845 oral No Start Date 04/26/2016 Inactive cetirizine 10 mg tablet RxNorm: 8316272 1 Tablet(s) PO daily No Start Date 01/07/2019 Inactive losartan 50 mg tablet RxNorm: 846628 1 Tablet(s) PO daily No Start Date 05/23/2018 Inactive Plavix 75 mg tablet RxNorm: 776987 1 Tablet(s) PO every other day No Start Date 12/11/2015 Inactive Osteo Bi-Flex oral RxNorm: 9576255 oral No Start Date 09/01/2017 Inactive iron ER 159 mg (45 mg iron) tablet,extended release RxNorm: 788864 1 Tablet(s) PO BID No Start Date 04/26/2016 Inactive amlodipine 5 mg tablet RxNorm: 753353 1 Tablet(s) PO daily No Start Date 01/05/2016 Inactive aspirin 81 mg tablet,delayed release RxNorm: 319365 1 Tablet(s) PO daily No Start Date 05/09/2018 Inactive dexamethasone 0.5 mg tablet RxNorm: 840459 1 Tablet(s) PO No Start Date 12/11/2015 Inactive Vitamin B-12 1,000 mcg tablet RxNorm: 397681 6 Tablet(s) PO every other day No Start Date 06/11/2018 Inactive colchicine 0.6 mg tablet RxNorm: 544678 Tablet(s) PO 1.2 mg for the first dose and 0.6 mg an hour after No Start Date 12/14/2015 Inactive nitroglycerin 0.4 mg sublingual tablet RxNorm: 588259 1 Tablet(s) SL x3 in 15 min as needed No Start Date 12/11/2015 Inactive Fish Oil 1,000 mg capsule RxNorm: 1 Capsule(s) PO daily No Start Date 04/26/2016 Inactive Ecotrin Low Strength 81 mg tablet,enteric coated RxNorm: 5799450 1 Tablet(s) PO daily No Start Date 09/27/2016 Inactive Medication Administered Medication Codes Instructions Start Date Status Kenalog 40 mg/mL suspension for injection RxNorm: 0986459 Milliliter 06/12/2018 No longer Active Immunizations Vaccine Codes Date Status Influenza CVX: 141 07/05/2018 completed Influenza CVX: 141 08/01/2017 completed Pneumococcal CVX: 33 08/01/2017 completed Influenza CVX: 141 06/28/2016 completed Tetanus, Diptheria, Pertussis CVX: 113 06/28/2016 completed Tetanus/Diptheria CVX: 113 06/28/2016 completed Pneumococcal Unknown 08/04/2015 completed Influenza CVX: 141 04/16/2014 completed Pneumococcal CVX: 33 05/15/2008 completed Assessments Condition Codes Effective Dates Essential (primary) hypertension ICD-10: I10 ICD-9: 401.1 03/05/2019 Unsteadiness on feet ICD-10: R26.81 ICD-9: 781.2 03/05/2019 Abdominal aortic aneurysm, without rupture ICD-10: I71.4 ICD-9: 441.4 03/05/2019 Frequency of micturition ICD-10: R35.0 ICD-9: 788.41 02/12/2019 Paroxysmal atrial fibrillation ICD-10: I48.0 ICD-9: 427.31 02/12/2019 Vertigo of central origin, right ear ICD-10: H81.41 ICD-9: 386.2 01/29/2019 Dizziness and giddiness ICD-10: R42 ICD-9: 780.4 01/29/2019 Pleurodynia ICD-10: R07.81 ICD-9: 786.50 2019 Other allergic rhinitis ICD-10: J30.89 ICD-9: 477.8 01/08/2019 Other fatigue ICD-10: R53.83 ICD-9: 780.79 12/25/2018 Obstructive sleep apnea (adult) (pediatric) ICD-10: G47.33 ICD-9: 327.23 12/25/2018 Other malaise ICD-10: R53.81 ICD-9: 780.79 12/25/2018 Shortness of breath ICD-10: R06.02 ICD-9: 786.05 12/13/2018 Muscle weakness (generalized) ICD-10: M62.81 ICD-9: 728.87 11/27/2018 Essential (primary) hypertension ICD-10: I10 ICD-9: 401.9 [...] 01/20/2016 Major depressive disorder, single episode, unspecified ICD-10: F32.9 ICD-9: 311 01/20/2016 Gout, unspecified ICD-10: M10.9 ICD-9: 274.9 12/16/2015 Hypotension, unspecified ICD-10: I95.9 ICD-9: 458.9 12/16/2015 Dyspnea, unspecified ICD-10: R06.00 ICD-9: 786.09 11/27/2015 Hypoxemia ICD-10: R09.02 ICD-9: 799.02 11/27/2015 Gastro-esophageal reflux disease without esophagitis ICD-10: K21.9 ICD-9: 530.81 07/30/2015 ESSENTIAL HYPERTENSION ICD-9: 401.9 06/09/2015 Nasal inflammation due to allergen ICD-9: 477.9 02/19/2015 Encounter for screening fecal occult blood testing ICD-9: V76.51 02/19/2015 DEPRESSIVE DISORDER NEC ICD-9: 311 02/19/2015 Enlarged prostate ICD-9: 600.00 02/19/2015 Reason For Visit Reason For Visit Effective Dates Notes fatigue 03/05/2019 Hospital Follow Up 02/12/2019 fatigue 01/29/2019 flank pain 2019 fatigue 01/08/2019 fatigue 12/25/2018 fatigue 12/13/2018 fatigue 11/27/2018 dyspepsia 09/26/2018 Annual [...] 30.4 pg 10/20/2018 Cbc With Differential Ord2 [place]% 5.7 % 10/20/2018 Cbc With Differential Ord2 [...] 1.69 K/ul 10/20/2018 Cbc With Differential Ord2 [place] ABS# 0.6 K/ul 10/20/2018 Cbc With Differential Ord2 Eos ABS# 0.0 K/ul 10/20/2018 Cbc With Differential Ord2 Baso ABS# 0.0 K/ul 10/20/2018 Comp Metabolic Xmm309 NA 140 mEq/L 10/20/2018 Comp Metabolic Utm611 K 4.0 mEq/L 10/20/2018 Comp Metabolic Thp213 CL 104 mEq/L 10/20/2018 Comp Metabolic Pkv851 CO2 28.0 mEq/L 10/20/2018 Comp Metabolic Bvt987 ANION GAP 12 10/20/2018 Comp Metabolic Yac928 GLUCOSE 113 mg/dL 10/20/2018 Comp Metabolic Ecv060 Creat 1.0 mg/dL 10/20/2018 Comp Metabolic Eij975 eGFR 75 ml/min/1.73m2 10/20/2018 Comp Metabolic Lrr810 BUN 18 mg/dL 10/20/2018 Comp Metabolic Vts827 B/C Ratio 17.8 Ratio 10/20/2018 Comp Metabolic Pvo704 CALCIUM 9.8 mg/dL 10/20/2018 Comp Metabolic Agv296 ALK PHOS 70 U/L 10/20/2018 Comp Metabolic Qpo644 AST(SGOT) 15 U/L 10/20/2018 Comp Metabolic Zdy094 ALT(SGPT) 18 U/L 10/20/2018 Comp Metabolic Xdt428 BILI T 1.1 mg/dL 10/20/2018 Comp Metabolic Nfy883 ALBUMIN 4.4 g/dL 10/20/2018 Comp Metabolic Fxa968 TPRO 6.9 g/dL 10/20/2018 Comp Metabolic Ilu624 GLOB 2.5 g/dL 10/20/2018 Comp Metabolic Mdk715 A/G Ratio 1.7 Ratio 10/20/2018 Comp Metabolic Ldo992 Osmo 282 mOsmo 10/20/2018 Urinalysis Ord28 U-Color [...] 29.0 pg 07/14/2018 Cbc With Differential Ord2 [place]% 7.5 % 07/14/2018 Cbc With Differential Ord2 [...] 1.92 K/ul 07/14/2018 Cbc With Differential Ord2 Toombs ABS# 0.4 K/ul 07/14/2018 Cbc With Differential Ord2 Eos ABS# 0.2 K/ul 07/14/2018 Cbc With Differential Ord2 Baso ABS# 0.0 K/ul 07/14/2018 Renal Zby831 NA 140 mEq/L 07/14/2018 Renal Jyl870 K 4.2 mEq/L 07/14/2018 Renal Qpr292 CL 103 mEq/L 07/14/2018 Renal Yds520 CO2 29.0 mEq/L 07/14/2018 Renal Hkg589 ANION GAP 12 07/14/2018 Renal Nkj254 Osmo 280 mOsmo 07/14/2018 Renal Tim631 GLUCOSE 95 mg/dL 07/14/2018 Renal Hhv665 BUN 15 mg/dL 07/14/2018 Renal Myn643 Creat 1.2 mg/dL 07/14/2018 Renal Uyw673 eGFR 64 ml/min/1.73m2 07/14/2018 Renal Lis317 B/C Ratio 12.8 Ratio 07/14/2018 Renal Kfy480 CALCIUM 9.6 mg/dL 07/14/2018 Renal Paw216 PHOS 3.2 mg/dL 07/14/2018 Renal Lfb247 ALBUMIN 4.4 g/dL 07/14/2018 Magnesium Ord90 Mag [...] 29.7 pg 06/08/2018 Cbc With Differential Ord2 [place]% 8.7 % 06/08/2018 Cbc With Differential Ord2 [...] 2.14 K/ul 06/08/2018 Cbc With Differential Ord2 [place] ABS# 0.5 K/ul 06/08/2018 Cbc With Differential Ord2 Eos ABS# 0.2 K/ul 06/08/2018 Cbc With Differential Ord2 Baso ABS# 0.0 K/ul 06/08/2018 Comp Metabolic Kiy739 NA 139 mEq/L 06/08/2018 Comp Metabolic Mfw908 K 4.6 mEq/L 06/08/2018 Comp Metabolic Nky304 CL 105 mEq/L 06/08/2018 Comp Metabolic Hrd222 CO2 26.0 mEq/L 06/08/2018 Comp Metabolic Syu627 ANION GAP 13 06/08/2018 Comp Metabolic Vgq895 GLUCOSE 95 mg/dL 06/08/2018 Comp Metabolic Xzv305 Creat 1.2 mg/dL 06/08/2018 Comp Metabolic Buu353 eGFR 59 ml/min/1.73m2 06/08/2018 Comp Metabolic Yzf997 BUN 12 mg/dL 06/08/2018 Comp Metabolic Cnh118 B/C Ratio 9.7 Ratio 06/08/2018 Comp Metabolic Hfm135 CALCIUM 9.9 mg/dL 06/08/2018 Comp Metabolic Bdw732 ALK PHOS 70 U/L 06/08/2018 Comp Metabolic Qlu782 AST(SGOT) 21 U/L 06/08/2018 Comp Metabolic Shx024 ALT(SGPT) 20 U/L 06/08/2018 Comp Metabolic Krf556 BILI T 1.0 mg/dL 06/08/2018 Comp Metabolic Plo074 ALBUMIN 4.5 g/dL 06/08/2018 Comp Metabolic Crw825 TPRO 7.2 g/dL 06/08/2018 Comp Metabolic Gox699 GLOB 2.8 g/dL 06/08/2018 Comp Metabolic Kpe369 A/G Ratio 1.6 Ratio 06/08/2018 Comp Metabolic Ebw093 Osmo 277 mOsmo 06/08/2018 Cbc With Differential [...] 30.6 pg 05/10/2018 Cbc With Differential Ord2 [place]% 6.5 % 05/10/2018 Cbc With Differential Ord2 [...] 1.94 K/ul 05/10/2018 Cbc With Differential Ord2 [place] ABS# 0.4 K/ul 05/10/2018 Cbc With Differential [...] Ord30 C/HDL 4.2 Ratio 01/26/2018 Comp Metabolic Lig403 NA 138 mEq/L 01/26/2018 Comp Metabolic Uhi243 K 4.2 mEq/L 01/26/2018 Comp Metabolic Pgi210 CL 105 mEq/L 01/26/2018 Comp Metabolic Wkj263 CO2 23.0 mEq/L 01/26/2018 Comp Metabolic Asx013 ANION GAP 14 01/26/2018 Comp Metabolic Rvh512 GLUCOSE 89 mg/dL 01/26/2018 Comp Metabolic Keq818 Creat 1.1 mg/dL 01/26/2018 Comp Metabolic Zra327 eGFR 70 ml/min/1.73m2 01/26/2018 Comp Metabolic Zjn947 BUN 18 mg/dL 01/26/2018 Comp Metabolic Xce721 B/C Ratio 16.8 Ratio 01/26/2018 Comp Metabolic Ywk954 CALCIUM 9.2 mg/dL 01/26/2018 Comp Metabolic Ihl669 ALK PHOS 67 U/L 01/26/2018 Comp Metabolic Uzs810 AST(SGOT) 31 U/L 01/26/2018 Comp Metabolic Nwp987 ALT(SGPT) 23 U/L 01/26/2018 Comp Metabolic Wvx530 BILI T 1.7 mg/dL 01/26/2018 Comp Metabolic Lvn369 ALBUMIN 3.9 g/dL 01/26/2018 Comp Metabolic Lfx269 TPRO 6.7 g/dL 01/26/2018 Comp Metabolic Vqz977 GLOB 2.8 g/dL 01/26/2018 Comp Metabolic Hvo717 A/G Ratio 1.4 Ratio 01/26/2018 Comp Metabolic Zah873 Osmo 277 mOsmo 01/26/2018 Cbc With Differential [...] 30.7 pg 01/26/2018 Cbc With Differential Ord2 [place]% 7.1 % 01/26/2018 Cbc With Differential Ord2 [...] 2.40 K/ul 01/26/2018 Cbc With Differential Ord2 [place] ABS# 0.5 K/ul 01/26/2018 Cbc With Differential Ord2 Eos ABS# 0.2 K/ul 01/26/2018 Cbc With Differential Ord2 Baso ABS# 0.0 K/ul 01/26/2018 Tsh Ord6 TSH (3rd IS) 1.81 uIU/mL 01/26/2018 Testosterone Ohv032 Testo 370.3 ng/dL 01/26/2018 C A/B FLU [id number] Influenza A Scr Negative 12/08/2017 C A/B FLU [id number] Influenza B Scr Negative 12/08/2017 C A/B FLU [id number] Influenza Intrp B AG:PRID:PT:NOSE:NOM:IF See Footnote 12/08/2017 Lipid Ord30 CHOL 143 [...] 30.8 pg 04/11/2017 Cbc With Differential Ord2 [place]% 8.1 % 04/11/2017 Cbc With Differential Ord2 [...] 1.91 K/ul 04/11/2017 Cbc With Differential Ord2 [place] ABS# 0.5 K/ul 04/11/2017 Cbc With Differential Ord2 Eos ABS# 0.2 K/ul 04/11/2017 Cbc With Differential Ord2 Baso ABS# 0.0 K/ul 04/11/2017 Comp Metabolic Kwf792 NA 140 mEq/L 04/11/2017 Comp Metabolic Acn606 K 4.1 mEq/L 04/11/2017 Comp Metabolic Ocl391 CL 105 mEq/L 04/11/2017 Comp Metabolic Jqm768 CO2 26.0 mEq/L 04/11/2017 Comp Metabolic Hii458 ANION GAP 13 04/11/2017 Comp Metabolic Xkb389 GLUCOSE 88 mg/dL 04/11/2017 Comp Metabolic Nxk498 Creat 1.1 mg/dL 04/11/2017 Comp Metabolic Qos203 eGFR 66 ml/min/1.73m2 04/11/2017 Comp Metabolic Jdf318 BUN 18 mg/dL 04/11/2017 Comp Metabolic Vfd877 B/C Ratio 15.9 Ratio 04/11/2017 Comp Metabolic Cpi733 CALCIUM 9.0 mg/dL 04/11/2017 Comp Metabolic Crx433 ALK PHOS 72 U/L 04/11/2017 Comp Metabolic Rph116 AST(SGOT) 22 U/L 04/11/2017 Comp Metabolic Qrx850 ALT(SGPT) 26 U/L 04/11/2017 Comp Metabolic Dxb450 BILI T 1.0 mg/dL 04/11/2017 Comp Metabolic Ovx234 ALBUMIN 4.0 g/dL 04/11/2017 Comp Metabolic Vfy141 TPRO 6.4 g/dL 04/11/2017 Comp Metabolic Ydm254 GLOB 2.4 g/dL 04/11/2017 Comp Metabolic Sra020 A/G Ratio 1.6 Ratio 04/11/2017 Comp Metabolic Eqq858 Osmo 281 mOsmo 04/11/2017 Vitamin D 25 Oh Pfh3967 VITAMIN D, 25 HYDROXY 65.52 ng/mL 05/19/2016 Cbc With Differential Ord2 WBC 5.81 K/ul [...] 28.5 pg 05/18/2016 Cbc With Differential Ord2 [place]% 7.2 % 05/18/2016 Cbc With Differential Ord2 [...] 1.80 K/ul 05/18/2016 Cbc With Differential Ord2 [place] ABS# 0.4 K/ul 05/18/2016 Cbc With Differential Ord2 Eos ABS# 0.2 K/ul 05/18/2016 Cbc With Differential Ord2 Baso ABS# 0.0 K/ul 05/18/2016 Magnesium Ord90 Mag 2.0 mg/dL 05/18/2016 Renal Hlw688 NA 139 mEq/L 05/18/2016 Renal Mkz520 K 4.0 mEq/L 05/18/2016 Renal Bxz236 CL 104 mEq/L 05/18/2016 Renal Zdr742 CO2 27.0 mEq/L 05/18/2016 Renal Oal146 ANION GAP 12 05/18/2016 Renal Iqe383 Osmo 279 mOsmo 05/18/2016 Renal Ikc593 GLUCOSE 91 mg/dL 05/18/2016 Renal Vvk836 BUN 18 mg/dL 05/18/2016 Renal Lsv301 Creat 1.3 mg/dL 05/18/2016 Renal Oko998 eGFR 59 ml/min/1.73m2 05/18/2016 Renal Hnu535 B/C Ratio 14.3 Ratio 05/18/2016 Renal Wtn963 CALCIUM 9.3 mg/dL 05/18/2016 Renal Nap804 PHOS 3.2 mg/dL 05/18/2016 Renal Qan975 ALBUMIN 4.2 g/dL 05/18/2016 Random Urine Protein/Creatinine Ratio Gnn9852 U Prot 15.0 mg/dl 05/18/2016 Random Urine Protein/Creatinine Ratio Lsh9594 U CREAT 141.0 mg/dL 05/18/2016 Random Urine Protein/Creatinine Ratio Fkl4047 R MTP/Creat Ratio 0.11 05/18/2016 Urinalysis Ord28 [...] 28.5 pg 02/19/2016 Cbc With Differential Ord2 [place]% 9.5 % 02/19/2016 Cbc With Differential Ord2 [...] 1.91 K/ul 02/19/2016 Cbc With Differential Ord2 [place] ABS# 0.5 K/ul 02/19/2016 Cbc With Differential Ord2 Eos ABS# 0.2 K/ul 02/19/2016 Cbc With Differential Ord2 Baso ABS# 0.0 K/ul 02/19/2016 Cbc With Differential Ord2 New Analyzer Notice Please note new ref ranges starting 10-29-2015 due to implemntation of new five part differential hematolgy analyzer. 02/19/2016 Tsh Ord6 hTSH II 2.10 uIU/mL 02/19/2016 Comp Metabolic Ugh868 NA 138 mEq/L 02/19/2016 Comp Metabolic Aoo234 K 3.8 mEq/L 02/19/2016 Comp Metabolic Ehs525 CL 103 mEq/L 02/19/2016 Comp Metabolic Dmo444 CO2 28.0 mEq/L 02/19/2016 Comp Metabolic Nrv489 ANION GAP 11 02/19/2016 Comp Metabolic Zme208 GLUCOSE 94 mg/dL 02/19/2016 Comp Metabolic Jha131 Creat 1.0 mg/dL 02/19/2016 Comp Metabolic Dcb267 eGFR 75 ml/min/1.73m2 02/19/2016 Comp Metabolic Pxx083 BUN 18 mg/dL 02/19/2016 Comp Metabolic Iae178 B/C Ratio 17.6 Ratio 02/19/2016 Comp Metabolic Frq845 CALCIUM 9.6 mg/dL 02/19/2016 Comp Metabolic Fld704 ALK PHOS 93 U/L 02/19/2016 Comp Metabolic Rkv749 AST(SGOT) 23 U/L 02/19/2016 Comp Metabolic Tty847 ALT(SGPT) 19 U/L 02/19/2016 Comp Metabolic Gps442 BILI T 0.8 mg/dL 02/19/2016 Comp Metabolic Ndx372 ALBUMIN 4.1 g/dL 02/19/2016 Comp Metabolic Awd620 TPRO 6.8 g/dL 02/19/2016 Comp Metabolic Cip809 GLOB 2.7 g/dL 02/19/2016 Comp Metabolic Lij484 A/G Ratio 1.5 Ratio 02/19/2016 Comp Metabolic Vfy454 Osmo 277 mOsmo 02/19/2016 Uric Acid Ord77 Uric A 6.0 mg/dL 02/19/2016 Total Psa Ord10 PSA 0.82 ng/mL 02/19/2016 Comp Metabolic Aut838 NA 140 mEq/L 12/16/2015 Comp Metabolic Ruh626 K 4.0 mEq/L 12/16/2015 Comp Metabolic Jlg567 CL 105 mEq/L 12/16/2015 Comp Metabolic Uai904 CO2 24.0 mEq/L 12/16/2015 Comp Metabolic Jgl605 ANION GAP 15 12/16/2015 Comp Metabolic Jjd703 GLUCOSE 85 mg/dL 12/16/2015 Comp Metabolic Mbs558 Creat 1.2 mg/dL 12/16/2015 Comp Metabolic Brk706 eGFR 65 ml/min/1.73m2 12/16/2015 Comp Metabolic Cgt571 BUN 14 mg/dL 12/16/2015 Comp Metabolic Pun081 B/C Ratio 12.1 Ratio 12/16/2015 Comp Metabolic Vxb097 CALCIUM 9.1 mg/dL 12/16/2015 Comp Metabolic Gbd372 ALK PHOS 162 U/L 12/16/2015 Comp Metabolic Gwl149 AST(SGOT) 14 U/L 12/16/2015 Comp Metabolic Hfu974 ALT(SGPT) 17 U/L 12/16/2015 Comp Metabolic Xeq942 BILI T 1.0 mg/dL 12/16/2015 Comp Metabolic Oct839 ALBUMIN 3.4 g/dL 12/16/2015 Comp Metabolic Lod566 TPRO 6.2 g/dL 12/16/2015 Comp Metabolic Jcf974 GLOB 2.9 g/dL 12/16/2015 Comp Metabolic Anf533 A/G Ratio 1.2 Ratio 12/16/2015 Comp Metabolic Cot269 Osmo 279 mOsmo 12/16/2015 Uric Acid Ord77 [...] 29.9 % 12/16/2015 Cbc With Differential Ord2 [place]% 7.5 % 12/16/2015 Cbc With Differential Ord2 [...] 1.52 K/ul 12/16/2015 Cbc With Differential Ord2 [place] ABS# 0.4 K/ul 12/16/2015 Cbc With Differential [...] C/HDL 4.0 Ratio 07/21/2015 Urine Protein 24Hr Czk559 U Prot 5.1 mg/dl 05/16/2015 Urine Protein 24Hr Zki165 U Prot24 71.5 mg/24hr 05/16/2015 Total Volume Urine Rvb350 TV/24hr 1400 ml 05/16/2015 Total Psa Ord10 PSA 0.70 ng/mL 05/15/2015 Renal Qoc760 NA 135 mEq/L 05/15/2015 Renal Ojm886 K 3.9 mEq/L 05/15/2015 Renal Ybr558 CL 101 mEq/L 05/15/2015 Renal Oej303 CO2 27.0 mEq/L 05/15/2015 Renal Awd883 ANION GAP 11 05/15/2015 Renal Ihd316 Osmo 274 mOsmo 05/15/2015 Renal Smt740 GLUCOSE 132 mg/dL 05/15/2015 Renal Deg920 BUN 19 mg/dL 05/15/2015 Renal Sxk089 Creat 1.1 mg/dL 05/15/2015 Renal Wpp364 eGFR 67 ml/min/1.73m2 05/15/2015 Renal Zlo852 B/C Ratio 17.0 Ratio 05/15/2015 Renal Rsj750 CALCIUM 9.6 mg/dL 05/15/2015 Renal Wgu297 PHOS 3.0 mg/dL 05/15/2015 Renal Fmx570 ALBUMIN 4.3 g/dL 05/15/2015 Cbc With Differential [...] Result Effective Dates Constitutional No recent illness 03/05/2019 Constitutional No night sweats 03/05/2019 Constitutional No chills 03/05/2019 Constitutional No diaphoresis 03/05/2019 Constitutional No fatigue 03/05/2019 Constitutional No fever 03/05/2019 Constitutional insomnia 03/05/2019 Constitutional malaise 03/05/2019 Eyes No blindness 03/05/2019 Eyes No vision change 03/05/2019 Ears/Nose/Throat/Neck No dizziness 03/05/2019 Ears/Nose/Throat/Neck headache 03/05/2019 Ears/Nose/Throat/Neck hearing loss 03/05/2019 Ears/Nose/Throat/Neck nasal allergies 03/05/2019 Ears/Nose/Throat/Neck No sore throat 03/05/2019 Cardiovascular No chest pain/pressure 03/05/2019 Cardiovascular dyspnea 03/05/2019 Cardiovascular No edema 03/05/2019 Cardiovascular exercise intolerance 03/05/2019 Cardiovascular fatigue 03/05/2019 Cardiovascular No palpitations 03/05/2019 Cardiovascular No syncope 03/05/2019 Respiratory No chest congestion 03/05/2019 Respiratory No cough 03/05/2019 Respiratory dyspnea on exertion 03/05/2019 Gastrointestinal No abdominal pain 03/05/2019 Gastrointestinal No constipation 03/05/2019 Gastrointestinal No diarrhea 03/05/2019 Gastrointestinal No nausea 03/05/2019 Gastrointestinal No vomiting 03/05/2019 Genitourinary/Nephrology No dysuria 03/05/2019 Genitourinary/Nephrology nocturia 03/05/2019 Musculoskeletal No stiffness 03/05/2019 Musculoskeletal No swelling 03/05/2019 Musculoskeletal back pain 03/05/2019 Musculoskeletal joint complaint 03/05/2019 Musculoskeletal muscle weakness 03/05/2019 Musculoskeletal No myalgias 03/05/2019 Dermatologic No rash 03/05/2019 Neurologic No alteration of consciousness 03/05/2019 Neurologic dizziness 03/05/2019 Neurologic memory loss 03/05/2019 Neurologic No mental status change 03/05/2019 Neurologic vertigo 03/05/2019 Neurologic weakness 03/05/2019 Psychiatric anxiety 03/05/2019 Psychiatric depression 03/05/2019 Constitutional No recent illness 02/12/2019 Constitutional No night sweats 02/12/2019 Constitutional No chills 02/12/2019 Constitutional No diaphoresis 02/12/2019 Constitutional No fatigue 02/12/2019 Constitutional No fever 02/12/2019 Constitutional insomnia 02/12/2019 Constitutional malaise 02/12/2019 Eyes No blindness 02/12/2019 Eyes No vision change 02/12/2019 Ears/Nose/Throat/Neck No dizziness 02/12/2019 Ears/Nose/Throat/Neck headache 02/12/2019 Ears/Nose/Throat/Neck hearing loss 02/12/2019 Ears/Nose/Throat/Neck nasal allergies 02/12/2019 Ears/Nose/Throat/Neck No sore throat 02/12/2019 Cardiovascular No chest pain/pressure 02/12/2019 Cardiovascular dyspnea 02/12/2019 Cardiovascular No edema 02/12/2019 Cardiovascular exercise intolerance 02/12/2019 Cardiovascular fatigue 02/12/2019 Cardiovascular No palpitations 02/12/2019 Cardiovascular No syncope 02/12/2019 Respiratory No chest congestion 02/12/2019 Respiratory No cough 02/12/2019 Respiratory dyspnea on exertion 02/12/2019 Gastrointestinal No abdominal pain 02/12/2019 Gastrointestinal No constipation 02/12/2019 Gastrointestinal No nausea 02/12/2019 Gastrointestinal No vomiting 02/12/2019 Genitourinary/Nephrology No dysuria 02/12/2019 Genitourinary/Nephrology nocturia 02/12/2019 Musculoskeletal No stiffness 02/12/2019 Musculoskeletal No swelling 02/12/2019 Musculoskeletal back pain 02/12/2019 Musculoskeletal joint complaint 02/12/2019 Musculoskeletal No muscle weakness 02/12/2019 Musculoskeletal No myalgias 02/12/2019 Dermatologic No rash 02/12/2019 Neurologic No alteration of consciousness 02/12/2019 Neurologic dizziness 02/12/2019 Neurologic memory loss 02/12/2019 Neurologic No mental status change 02/12/2019 Neurologic vertigo 02/12/2019 Neurologic weakness 02/12/2019 Psychiatric anxiety 02/12/2019 Psychiatric depression 02/12/2019 Gastrointestinal No diarrhea 02/12/2019 Genitourinary/Nephrology urinary urgency 02/12/2019 Genitourinary/Nephrology urinary frequency 02/12/2019 Constitutional No recent illness 01/29/2019 Constitutional No chills 01/29/2019 Constitutional No diaphoresis 01/29/2019 Constitutional No fatigue 01/29/2019 Constitutional No fever 01/29/2019 Constitutional insomnia 01/29/2019 Eyes No blindness 01/29/2019 Eyes No vision change 01/29/2019 Ears/Nose/Throat/Neck No dizziness 01/29/2019 Ears/Nose/Throat/Neck hearing loss 01/29/2019 Ears/Nose/Throat/Neck nasal allergies 01/29/2019 Ears/Nose/Throat/Neck No sore throat 01/29/2019 Cardiovascular No chest pain/pressure 01/29/2019 Cardiovascular No edema 01/29/2019 Cardiovascular exercise intolerance 01/29/2019 Cardiovascular fatigue 01/29/2019 Cardiovascular No palpitations 01/29/2019 Respiratory No chest congestion 01/29/2019 Respiratory No cough 01/29/2019 Gastrointestinal No abdominal pain 01/29/2019 Gastrointestinal No constipation 01/29/2019 Gastrointestinal No diarrhea 01/29/2019 Gastrointestinal No nausea 01/29/2019 Gastrointestinal No vomiting 01/29/2019 Genitourinary/Nephrology No dysuria 01/29/2019 Genitourinary/Nephrology nocturia 01/29/2019 Musculoskeletal No stiffness 01/29/2019 Musculoskeletal No swelling 01/29/2019 Musculoskeletal back pain 01/29/2019 Musculoskeletal No muscle weakness 01/29/2019 Musculoskeletal No myalgias 01/29/2019 Dermatologic No rash 01/29/2019 Neurologic No alteration of consciousness 01/29/2019 Neurologic dizziness 01/29/2019 Neurologic No mental status change 01/29/2019 Neurologic vertigo 01/29/2019 Psychiatric anxiety 01/29/2019 Psychiatric depression 01/29/2019 Constitutional No night sweats 01/29/2019 Constitutional malaise 01/29/2019 Ears/Nose/Throat/Neck headache 01/29/2019 Cardiovascular dyspnea 01/29/2019 Musculoskeletal joint complaint 01/29/2019 Neurologic memory loss 01/29/2019 Neurologic weakness 01/29/2019 Cardiovascular No syncope 01/29/2019 Respiratory dyspnea on exertion 01/29/2019 Constitutional No recent illness 2019 Constitutional No chills 2019 Constitutional No fever 2019 Eyes No eye erythema 2019 Ears/Nose/Throat/Neck No nasal discharge 2019 Cardiovascular No chest pain/pressure 2019 Cardiovascular No dyspnea 2019 Respiratory No cough 2019 Respiratory No dyspnea 2019 Musculoskeletal joint complaint 2019 Neurologic No alteration of consciousness 2019 Neurologic No mental status change 2019 Constitutional No recent illness 01/08/2019 Constitutional No night sweats 01/08/2019 Constitutional No chills 01/08/2019 Constitutional No diaphoresis 01/08/2019 Constitutional fatigue 01/08/2019 Constitutional No fever 01/08/2019 Constitutional No insomnia 01/08/2019 Constitutional malaise 01/08/2019 Ears/Nose/Throat/Neck dizziness 01/08/2019 Ears/Nose/Throat/Neck headache 01/08/2019 Cardiovascular No chest pain/pressure 01/08/2019 Cardiovascular dyspnea 01/08/2019 Cardiovascular No edema 01/08/2019 Respiratory No cough 01/08/2019 Gastrointestinal No abdominal pain 01/08/2019 Genitourinary/Nephrology No dysuria 01/08/2019 Musculoskeletal joint complaint 01/08/2019 Neurologic No alteration of consciousness 01/08/2019 Neurologic dizziness 01/08/2019 Neurologic memory loss 01/08/2019 Neurologic weakness 01/08/2019 Psychiatric anxiety 01/08/2019 Constitutional No recent illness 12/25/2018 Constitutional No night sweats 12/25/2018 Constitutional No chills 12/25/2018 Constitutional No diaphoresis 12/25/2018 Constitutional fatigue 12/25/2018 Constitutional No fever 12/25/2018 Constitutional No insomnia 12/25/2018 Constitutional malaise 12/25/2018 Ears/Nose/Throat/Neck dizziness 12/25/2018 Cardiovascular No chest pain/pressure 12/25/2018 Cardiovascular dyspnea 12/25/2018 Cardiovascular No edema 12/25/2018 Respiratory No cough 12/25/2018 Gastrointestinal No abdominal pain 12/25/2018 Musculoskeletal joint complaint 12/25/2018 Neurologic No alteration of consciousness 12/25/2018 Neurologic dizziness 12/25/2018 Neurologic memory loss 12/25/2018 Neurologic weakness 12/25/2018 Eyes No eye erythema 12/25/2018 Constitutional No recent illness 12/13/2018 Constitutional No night sweats 12/13/2018 Constitutional No chills 12/13/2018 Constitutional No diaphoresis 12/13/2018 Constitutional fatigue 12/13/2018 Constitutional No fever 12/13/2018 Constitutional No insomnia 12/13/2018 Constitutional malaise 12/13/2018 Ears/Nose/Throat/Neck dizziness 12/13/2018 Ears/Nose/Throat/Neck headache 12/13/2018 Cardiovascular No chest pain/pressure 12/13/2018 Cardiovascular dyspnea 12/13/2018 Cardiovascular No edema 12/13/2018 Respiratory No cough 12/13/2018 Gastrointestinal No abdominal pain 12/13/2018 Genitourinary/Nephrology No dysuria 12/13/2018 Musculoskeletal joint complaint 12/13/2018 Neurologic No alteration of consciousness 12/13/2018 Neurologic dizziness 12/13/2018 Psychiatric anxiety 12/13/2018 Neurologic memory loss 12/13/2018 Neurologic weakness 12/13/2018 Constitutional fatigue 11/27/2018 Constitutional recent illness 11/27/2018 Constitutional anorexia 11/27/2018 Constitutional No night sweats 11/27/2018 Constitutional No chills 11/27/2018 Constitutional No diaphoresis 11/27/2018 Constitutional No fever 11/27/2018 Constitutional No insomnia 11/27/2018 Constitutional No malaise 11/27/2018 Constitutional weight loss 11/27/2018 Constitutional No weight gain 11/27/2018 Eyes No eye discharge 11/27/2018 Ears/Nose/Throat/Neck dizziness 11/27/2018 Ears/Nose/Throat/Neck headache 11/27/2018 Cardiovascular No chest pain/pressure 11/27/2018 Cardiovascular dyspnea 11/27/2018 Cardiovascular No edema 11/27/2018 Respiratory No cough 11/27/2018 Gastrointestinal No abdominal pain 11/27/2018 Genitourinary/Nephrology No dysuria 11/27/2018 Musculoskeletal joint complaint 11/27/2018 Dermatologic No rash 11/27/2018 Neurologic No alteration of consciousness 11/27/2018 Psychiatric anxiety 11/27/2018 Neurologic dizziness 11/27/2018 Endocrine No dry or coarse skin 11/27/2018 Hematologic/Lymphatic No abnormal ecchymoses 11/27/2018 Constitutional No chills 09/26/2018 Constitutional No diaphoresis 09/26/2018 Constitutional No fatigue 09/26/2018 Constitutional No fever 09/26/2018 Constitutional insomnia 09/26/2018 Eyes No blindness 09/26/2018 Eyes No vision change 09/26/2018 Ears/Nose/Throat/Neck No dizziness 09/26/2018 Ears/Nose/Throat/Neck hearing loss 09/26/2018 Ears/Nose/Throat/Neck nasal allergies 09/26/2018 Ears/Nose/Throat/Neck No sore throat 09/26/2018 Cardiovascular No chest pain/pressure 09/26/2018 Cardiovascular No edema 09/26/2018 Cardiovascular No exercise intolerance 09/26/2018 Cardiovascular No fatigue 09/26/2018 Cardiovascular No palpitations 09/26/2018 Cardiovascular No syncope 09/26/2018 Respiratory No chest congestion 09/26/2018 Respiratory No cough 09/26/2018 Gastrointestinal No abdominal pain 09/26/2018 Gastrointestinal No constipation 09/26/2018 Gastrointestinal No diarrhea 09/26/2018 Gastrointestinal No nausea 09/26/2018 Gastrointestinal No vomiting 09/26/2018 Genitourinary/Nephrology No dysuria 09/26/2018 Musculoskeletal No stiffness 09/26/2018 Musculoskeletal No swelling 09/26/2018 Musculoskeletal back pain 09/26/2018 Musculoskeletal No muscle weakness 09/26/2018 Musculoskeletal No myalgias 09/26/2018 Dermatologic No rash 09/26/2018 Neurologic No alteration of consciousness 09/26/2018 Neurologic dizziness 09/26/2018 Neurologic No mental status change 09/26/2018 Neurologic vertigo 09/26/2018 Psychiatric No anxiety 09/26/2018 Psychiatric depression 09/26/2018 Constitutional No recent illness 09/26/2018 Genitourinary/Nephrology nocturia 09/26/2018 Constitutional No recent illness 08/10/2018 Constitutional No chills 08/10/2018 Constitutional No diaphoresis 08/10/2018 Constitutional No fever 08/10/2018 Eyes No eye erythema 08/10/2018 Ears/Nose/Throat/Neck No nasal discharge 08/10/2018 Cardiovascular No chest pain/pressure 08/10/2018 Cardiovascular No dyspnea 08/10/2018 Respiratory No cough 08/10/2018 Respiratory No dyspnea 08/10/2018 Neurologic No alteration of consciousness 08/10/2018 Neurologic No mental status change 08/10/2018 Constitutional No chills 07/26/2018 Constitutional No diaphoresis 07/26/2018 Constitutional No fatigue 07/26/2018 Constitutional No fever 07/26/2018 Constitutional insomnia 07/26/2018 Eyes No blindness 07/26/2018 Eyes No vision change 07/26/2018 Ears/Nose/Throat/Neck No dizziness 07/26/2018 Ears/Nose/Throat/Neck hearing loss 07/26/2018 Ears/Nose/Throat/Neck nasal allergies 07/26/2018 Ears/Nose/Throat/Neck No sore throat 07/26/2018 Cardiovascular No chest pain/pressure 07/26/2018 Cardiovascular No edema 07/26/2018 Cardiovascular No exercise intolerance 07/26/2018 Cardiovascular No fatigue 07/26/2018 Cardiovascular No palpitations 07/26/2018 Cardiovascular No syncope 07/26/2018 Respiratory No chest congestion 07/26/2018 Respiratory No cough 07/26/2018 Gastrointestinal No abdominal pain 07/26/2018 Gastrointestinal No constipation 07/26/2018 Gastrointestinal No diarrhea 07/26/2018 Gastrointestinal No nausea 07/26/2018 Gastrointestinal No vomiting 07/26/2018 Genitourinary/Nephrology No dysuria 07/26/2018 Musculoskeletal No stiffness 07/26/2018 Musculoskeletal No swelling 07/26/2018 Musculoskeletal back pain 07/26/2018 Musculoskeletal No muscle weakness 07/26/2018 Musculoskeletal No myalgias 07/26/2018 Dermatologic No rash 07/26/2018 Neurologic No alteration of consciousness 07/26/2018 Neurologic No mental status change 07/26/2018 Psychiatric No anxiety 07/26/2018 Psychiatric depression 07/26/2018 Constitutional recent illness 07/26/2018 Neurologic dizziness 07/26/2018 Neurologic vertigo 07/26/2018 Constitutional No chills 06/12/2018 Constitutional No diaphoresis 06/12/2018 Constitutional fatigue 06/12/2018 Constitutional No fever 06/12/2018 Constitutional insomnia 06/12/2018 Eyes No blindness 06/12/2018 Eyes No vision change 06/12/2018 Ears/Nose/Throat/Neck No dizziness 06/12/2018 Ears/Nose/Throat/Neck hearing loss 06/12/2018 Ears/Nose/Throat/Neck nasal allergies 06/12/2018 Ears/Nose/Throat/Neck No sore throat 06/12/2018 Cardiovascular No chest pain/pressure 06/12/2018 Cardiovascular No edema 06/12/2018 Cardiovascular No exercise intolerance 06/12/2018 Cardiovascular fatigue 06/12/2018 Cardiovascular No palpitations 06/12/2018 Cardiovascular No syncope 06/12/2018 Respiratory No chest congestion 06/12/2018 Respiratory No cough 06/12/2018 Gastrointestinal No abdominal pain 06/12/2018 Gastrointestinal No constipation 06/12/2018 Gastrointestinal No diarrhea 06/12/2018 Genitourinary/Nephrology No dysuria 06/12/2018 Musculoskeletal No stiffness 06/12/2018 Musculoskeletal No swelling 06/12/2018 Musculoskeletal back pain 06/12/2018 Musculoskeletal No muscle weakness 06/12/2018 Musculoskeletal No myalgias 06/12/2018 Dermatologic No rash 06/12/2018 Neurologic No alteration of consciousness 06/12/2018 Neurologic No mental status change 06/12/2018 Psychiatric No anxiety 06/12/2018 Psychiatric depression 06/12/2018 Constitutional No chills 05/10/2018 Constitutional No diaphoresis 05/10/2018 Constitutional fatigue 05/10/2018 Constitutional No fever 05/10/2018 Constitutional insomnia 05/10/2018 Eyes No blindness 05/10/2018 Eyes No vision change 05/10/2018 Ears/Nose/Throat/Neck No dizziness 05/10/2018 Ears/Nose/Throat/Neck nasal allergies 05/10/2018 Ears/Nose/Throat/Neck No sore throat 05/10/2018 Cardiovascular No chest pain/pressure 05/10/2018 Cardiovascular No edema 05/10/2018 Cardiovascular No exercise intolerance 05/10/2018 Cardiovascular No fatigue 05/10/2018 Cardiovascular No palpitations 05/10/2018 Cardiovascular No syncope 05/10/2018 Respiratory No chest congestion 05/10/2018 Respiratory No cough 05/10/2018 Gastrointestinal No abdominal pain 05/10/2018 Gastrointestinal No constipation 05/10/2018 Gastrointestinal No diarrhea 05/10/2018 Genitourinary/Nephrology No dysuria 05/10/2018 Genitourinary/Nephrology nocturia 05/10/2018 Genitourinary/Nephrology No urinary incontinence 05/10/2018 Musculoskeletal No stiffness 05/10/2018 Musculoskeletal No swelling 05/10/2018 Musculoskeletal No muscle weakness 05/10/2018 Musculoskeletal No myalgias 05/10/2018 Dermatologic No rash 05/10/2018 Neurologic No alteration of consciousness 05/10/2018 Neurologic No mental status change 05/10/2018 Psychiatric No anxiety 05/10/2018 Psychiatric No depression 05/10/2018 Constitutional recent illness 05/10/2018 Genitourinary/Nephrology urinary urgency 05/10/2018 Constitutional No chills 03/27/2018 Constitutional No diaphoresis 03/27/2018 Constitutional No fatigue 03/27/2018 Constitutional No fever 03/27/2018 Constitutional insomnia 03/27/2018 Eyes No blindness 03/27/2018 Eyes No vision change 03/27/2018 Ears/Nose/Throat/Neck No dizziness 03/27/2018 Ears/Nose/Throat/Neck hearing loss 03/27/2018 Ears/Nose/Throat/Neck nasal allergies 03/27/2018 Ears/Nose/Throat/Neck No sore throat 03/27/2018 Cardiovascular No chest pain/pressure 03/27/2018 Cardiovascular No edema 03/27/2018 Cardiovascular No exercise intolerance 03/27/2018 Cardiovascular No fatigue 03/27/2018 Cardiovascular No palpitations 03/27/2018 Cardiovascular No syncope 03/27/2018 Respiratory No chest congestion 03/27/2018 Respiratory No cough 03/27/2018 Gastrointestinal No abdominal pain 03/27/2018 Gastrointestinal No constipation 03/27/2018 Gastrointestinal No diarrhea 03/27/2018 Gastrointestinal No nausea 03/27/2018 Gastrointestinal No vomiting 03/27/2018 Genitourinary/Nephrology No dysuria 03/27/2018 Musculoskeletal No stiffness 03/27/2018 Musculoskeletal No swelling 03/27/2018 Musculoskeletal back pain 03/27/2018 Musculoskeletal No muscle weakness 03/27/2018 Musculoskeletal No myalgias 03/27/2018 Dermatologic No rash 03/27/2018 Neurologic No alteration of consciousness 03/27/2018 Neurologic No mental status change 03/27/2018 Psychiatric No anxiety 03/27/2018 Psychiatric depression 03/27/2018 Constitutional No chills 01/24/2018 Constitutional No diaphoresis 01/24/2018 Constitutional No fatigue 01/24/2018 Constitutional No fever 01/24/2018 Constitutional insomnia 01/24/2018 Eyes No blindness 01/24/2018 Eyes No vision change 01/24/2018 Ears/Nose/Throat/Neck No dizziness 01/24/2018 Ears/Nose/Throat/Neck hearing loss 01/24/2018 Ears/Nose/Throat/Neck nasal allergies 01/24/2018 Ears/Nose/Throat/Neck No sore throat 01/24/2018 Cardiovascular No chest pain/pressure 01/24/2018 Cardiovascular No edema 01/24/2018 Cardiovascular No exercise intolerance 01/24/2018 Cardiovascular No fatigue 01/24/2018 Cardiovascular No palpitations 01/24/2018 Cardiovascular No syncope 01/24/2018 Respiratory No chest congestion 01/24/2018 Respiratory No cough 01/24/2018 Gastrointestinal No abdominal pain 01/24/2018 Gastrointestinal No constipation 01/24/2018 Gastrointestinal No diarrhea 01/24/2018 Gastrointestinal No nausea 01/24/2018 Gastrointestinal No vomiting 01/24/2018 Genitourinary/Nephrology No dysuria 01/24/2018 Genitourinary/Nephrology urinary urgency 01/24/2018 Genitourinary/Nephrology urinary incontinence 01/24/2018 Genitourinary/Nephrology urinary retention/hesitancy 01/24/2018 Musculoskeletal No stiffness 01/24/2018 Musculoskeletal No swelling 01/24/2018 Musculoskeletal back pain 01/24/2018 Musculoskeletal No muscle weakness 01/24/2018 Musculoskeletal No myalgias 01/24/2018 Dermatologic No rash 01/24/2018 Neurologic No alteration of consciousness 01/24/2018 Neurologic No mental status change 01/24/2018 Psychiatric No anxiety 01/24/2018 Psychiatric depression 01/24/2018 Genitourinary/Nephrology impotence 01/24/2018 Constitutional recent illness 12/08/2017 Constitutional chills 12/08/2017 Constitutional fatigue 12/08/2017 Constitutional fever 12/08/2017 Constitutional malaise 12/08/2017 Eyes No eye erythema 12/08/2017 Ears/Nose/Throat/Neck nasal allergies 12/08/2017 Ears/Nose/Throat/Neck nasal discharge 12/08/2017 Ears/Nose/Throat/Neck sore throat 12/08/2017 Ears/Nose/Throat/Neck sinus congestion 12/08/2017 Ears/Nose/Throat/Neck postnasal drip 12/08/2017 Cardiovascular No chest pain/pressure 12/08/2017 Respiratory cough 12/08/2017 Respiratory No chest congestion 12/08/2017 Respiratory No dyspnea 12/08/2017 Gastrointestinal No abdominal pain 12/08/2017 Dermatologic No rash 12/08/2017 Neurologic No alteration of consciousness 12/08/2017 Neurologic No mental status change 12/08/2017 Constitutional No chills 10/27/2017 Constitutional No diaphoresis 10/27/2017 Constitutional No fatigue 10/27/2017 Constitutional No fever 10/27/2017 Constitutional insomnia 10/27/2017 Eyes No blindness 10/27/2017 Eyes No vision change 10/27/2017 Ears/Nose/Throat/Neck No dizziness 10/27/2017 Ears/Nose/Throat/Neck hearing loss 10/27/2017 Ears/Nose/Throat/Neck nasal allergies 10/27/2017 Ears/Nose/Throat/Neck No sore throat 10/27/2017 Cardiovascular No chest pain/pressure 10/27/2017 Cardiovascular No edema 10/27/2017 Cardiovascular No exercise intolerance 10/27/2017 Cardiovascular No fatigue 10/27/2017 Cardiovascular No palpitations 10/27/2017 Cardiovascular No syncope 10/27/2017 Respiratory No chest congestion 10/27/2017 Respiratory No cough 10/27/2017 Gastrointestinal No abdominal pain 10/27/2017 Gastrointestinal No constipation 10/27/2017 Gastrointestinal No diarrhea 10/27/2017 Gastrointestinal No nausea 10/27/2017 Gastrointestinal No vomiting 10/27/2017 Genitourinary/Nephrology No dysuria 10/27/2017 Genitourinary/Nephrology urinary urgency 10/27/2017 Genitourinary/Nephrology urinary incontinence 10/27/2017 Genitourinary/Nephrology urinary retention/hesitancy 10/27/2017 Musculoskeletal No stiffness 10/27/2017 Musculoskeletal No swelling 10/27/2017 Musculoskeletal back pain 10/27/2017 Musculoskeletal No muscle weakness 10/27/2017 Musculoskeletal No myalgias 10/27/2017 Dermatologic No rash 10/27/2017 Neurologic No alteration of consciousness 10/27/2017 Neurologic No mental status change 10/27/2017 Psychiatric No anxiety 10/27/2017 Psychiatric depression 10/27/2017 Constitutional No chills 09/29/2017 Constitutional No diaphoresis 09/29/2017 Constitutional No fatigue 09/29/2017 Constitutional No fever 09/29/2017 Constitutional insomnia 09/29/2017 Eyes No blindness 09/29/2017 Eyes No vision change 09/29/2017 Ears/Nose/Throat/Neck No dizziness 09/29/2017 Ears/Nose/Throat/Neck hearing loss 09/29/2017 Ears/Nose/Throat/Neck nasal allergies 09/29/2017 Ears/Nose/Throat/Neck No sore throat 09/29/2017 Cardiovascular No chest pain/pressure 09/29/2017 Cardiovascular No edema 09/29/2017 Cardiovascular No exercise intolerance 09/29/2017 Cardiovascular No fatigue 09/29/2017 Cardiovascular No palpitations 09/29/2017 Cardiovascular No syncope 09/29/2017 Respiratory No chest congestion 09/29/2017 Respiratory No cough 09/29/2017 Gastrointestinal No abdominal pain 09/29/2017 Gastrointestinal No constipation 09/29/2017 Gastrointestinal No diarrhea 09/29/2017 Gastrointestinal No nausea 09/29/2017 Gastrointestinal No vomiting 09/29/2017 Genitourinary/Nephrology No dysuria 09/29/2017 Genitourinary/Nephrology urinary urgency 09/29/2017 Genitourinary/Nephrology urinary incontinence 09/29/2017 Genitourinary/Nephrology urinary retention/hesitancy 09/29/2017 Musculoskeletal No stiffness 09/29/2017 Musculoskeletal No swelling 09/29/2017 Musculoskeletal back pain 09/29/2017 Musculoskeletal No muscle weakness 09/29/2017 Musculoskeletal No myalgias 09/29/2017 Dermatologic No rash 09/29/2017 Neurologic No alteration of consciousness 09/29/2017 Neurologic No mental status change 09/29/2017 Psychiatric No anxiety 09/29/2017 Psychiatric depression 09/29/2017 Gastrointestinal dysphagia 09/29/2017 Constitutional No chills 09/01/2017 Constitutional No diaphoresis 09/01/2017 Constitutional No fatigue 09/01/2017 Constitutional No fever 09/01/2017 Constitutional insomnia 09/01/2017 Eyes No blindness 09/01/2017 Eyes No vision change 09/01/2017 Ears/Nose/Throat/Neck No dizziness 09/01/2017 Ears/Nose/Throat/Neck hearing loss 09/01/2017 Ears/Nose/Throat/Neck nasal allergies 09/01/2017 Ears/Nose/Throat/Neck No sore throat 09/01/2017 Cardiovascular No chest pain/pressure 09/01/2017 Cardiovascular No edema 09/01/2017 Cardiovascular No exercise intolerance 09/01/2017 Cardiovascular No fatigue 09/01/2017 Cardiovascular No palpitations 09/01/2017 Cardiovascular No syncope 09/01/2017 Respiratory No chest congestion 09/01/2017 Respiratory No cough 09/01/2017 Gastrointestinal No abdominal pain 09/01/2017 Gastrointestinal No constipation 09/01/2017 Gastrointestinal No diarrhea 09/01/2017 Gastrointestinal No nausea 09/01/2017 Gastrointestinal No vomiting 09/01/2017 Genitourinary/Nephrology No dysuria 09/01/2017 Genitourinary/Nephrology urinary urgency 09/01/2017 Genitourinary/Nephrology urinary incontinence 09/01/2017 Genitourinary/Nephrology urinary retention/hesitancy 09/01/2017 Musculoskeletal No stiffness 09/01/2017 Musculoskeletal No swelling 09/01/2017 Musculoskeletal back pain 09/01/2017 Musculoskeletal No muscle weakness 09/01/2017 Musculoskeletal No myalgias 09/01/2017 Dermatologic No rash 09/01/2017 Neurologic No alteration of consciousness 09/01/2017 Neurologic No mental status change 09/01/2017 Psychiatric No anxiety 09/01/2017 Psychiatric depression 09/01/2017 Constitutional No recent illness 08/03/2017 Constitutional No chills 08/03/2017 Constitutional No diaphoresis 08/03/2017 Constitutional No fever 08/03/2017 Eyes No eye erythema 08/03/2017 Ears/Nose/Throat/Neck No nasal discharge 08/03/2017 Cardiovascular No chest pain/pressure 08/03/2017 Cardiovascular No dyspnea 08/03/2017 Respiratory No cough 08/03/2017 Respiratory No dyspnea 08/03/2017 Neurologic No alteration of consciousness 08/03/2017 Neurologic No mental status change 08/03/2017 Constitutional No chills 04/26/2017 Constitutional No diaphoresis 04/26/2017 Constitutional No fatigue 04/26/2017 Constitutional No fever 04/26/2017 Constitutional insomnia 04/26/2017 Eyes No blindness 04/26/2017 Eyes No vision change 04/26/2017 Ears/Nose/Throat/Neck No dizziness 04/26/2017 Ears/Nose/Throat/Neck hearing loss 04/26/2017 Ears/Nose/Throat/Neck nasal allergies 04/26/2017 Ears/Nose/Throat/Neck No sore throat 04/26/2017 Cardiovascular No chest pain/pressure 04/26/2017 Cardiovascular No edema 04/26/2017 Cardiovascular No exercise intolerance 04/26/2017 Cardiovascular No fatigue 04/26/2017 Cardiovascular No palpitations 04/26/2017 Cardiovascular No syncope 04/26/2017 Respiratory No chest congestion 04/26/2017 Respiratory No cough 04/26/2017 Gastrointestinal No abdominal pain 04/26/2017 Gastrointestinal No constipation 04/26/2017 Gastrointestinal No diarrhea 04/26/2017 Gastrointestinal No nausea 04/26/2017 Gastrointestinal No vomiting 04/26/2017 Genitourinary/Nephrology No dysuria 04/26/2017 Genitourinary/Nephrology urinary urgency 04/26/2017 Genitourinary/Nephrology urinary incontinence 04/26/2017 Genitourinary/Nephrology urinary retention/hesitancy 04/26/2017 Musculoskeletal No stiffness 04/26/2017 Musculoskeletal No swelling 04/26/2017 Musculoskeletal No muscle weakness 04/26/2017 Musculoskeletal No myalgias 04/26/2017 Dermatologic No rash 04/26/2017 Neurologic No alteration of consciousness 04/26/2017 Neurologic No mental status change 04/26/2017 Psychiatric No anxiety 04/26/2017 Psychiatric depression 04/26/2017 Musculoskeletal back pain 04/26/2017 Constitutional No chills 01/25/2017 Constitutional No diaphoresis 01/25/2017 Constitutional No fatigue 01/25/2017 Constitutional No fever 01/25/2017 Constitutional insomnia 01/25/2017 Eyes No blindness 01/25/2017 Eyes No vision change 01/25/2017 Ears/Nose/Throat/Neck No dizziness 01/25/2017 Ears/Nose/Throat/Neck hearing loss 01/25/2017 Ears/Nose/Throat/Neck nasal allergies 01/25/2017 Ears/Nose/Throat/Neck No sore throat 01/25/2017 Cardiovascular No chest pain/pressure 01/25/2017 Cardiovascular No edema 01/25/2017 Cardiovascular No exercise intolerance 01/25/2017 Cardiovascular No fatigue 01/25/2017 Cardiovascular No palpitations 01/25/2017 Cardiovascular No syncope 01/25/2017 Respiratory No chest congestion 01/25/2017 Respiratory No cough 01/25/2017 Gastrointestinal No abdominal pain 01/25/2017 Gastrointestinal No constipation 01/25/2017 Gastrointestinal No diarrhea 01/25/2017 Gastrointestinal No nausea 01/25/2017 Gastrointestinal No vomiting 01/25/2017 Genitourinary/Nephrology No dysuria 01/25/2017 Genitourinary/Nephrology nocturia 01/25/2017 Genitourinary/Nephrology urinary urgency 01/25/2017 Genitourinary/Nephrology urinary frequency 01/25/2017 Genitourinary/Nephrology urinary incontinence 01/25/2017 Genitourinary/Nephrology urinary retention/hesitancy 01/25/2017 Musculoskeletal No stiffness 01/25/2017 Musculoskeletal No swelling 01/25/2017 Musculoskeletal No muscle weakness 01/25/2017 Musculoskeletal No myalgias 01/25/2017 Dermatologic No rash 01/25/2017 Neurologic No alteration of consciousness 01/25/2017 Neurologic No mental status change 01/25/2017 Psychiatric No anxiety 01/25/2017 Psychiatric depression 01/25/2017 Constitutional No chills 10/26/2016 Constitutional No diaphoresis 10/26/2016 Constitutional No fatigue 10/26/2016 Constitutional No fever 10/26/2016 Constitutional insomnia 10/26/2016 Eyes No blindness 10/26/2016 Eyes No vision change 10/26/2016 Ears/Nose/Throat/Neck No dizziness 10/26/2016 Ears/Nose/Throat/Neck hearing loss 10/26/2016 Ears/Nose/Throat/Neck nasal allergies 10/26/2016 Ears/Nose/Throat/Neck No sore throat 10/26/2016 Cardiovascular No chest pain/pressure 10/26/2016 Cardiovascular No edema 10/26/2016 Cardiovascular No exercise intolerance 10/26/2016 Cardiovascular No fatigue 10/26/2016 Cardiovascular No palpitations 10/26/2016 Cardiovascular No syncope 10/26/2016 Respiratory No chest congestion 10/26/2016 Respiratory No cough 10/26/2016 Gastrointestinal No abdominal pain 10/26/2016 Gastrointestinal No constipation 10/26/2016 Gastrointestinal No diarrhea 10/26/2016 Gastrointestinal No nausea 10/26/2016 Gastrointestinal No vomiting 10/26/2016 Genitourinary/Nephrology No dysuria 10/26/2016 Genitourinary/Nephrology nocturia 10/26/2016 Genitourinary/Nephrology urinary urgency 10/26/2016 Genitourinary/Nephrology urinary frequency 10/26/2016 Genitourinary/Nephrology urinary incontinence 10/26/2016 Genitourinary/Nephrology urinary retention/hesitancy 10/26/2016 Musculoskeletal No stiffness 10/26/2016 Musculoskeletal No swelling 10/26/2016 Musculoskeletal No muscle weakness 10/26/2016 Musculoskeletal No myalgias 10/26/2016 Dermatologic No rash 10/26/2016 Neurologic No alteration of consciousness 10/26/2016 Neurologic No mental status change 10/26/2016 Psychiatric No anxiety 10/26/2016 Psychiatric depression 10/26/2016 Constitutional No chills 09/27/2016 Constitutional No diaphoresis 09/27/2016 Constitutional No fatigue 09/27/2016 Constitutional No fever 09/27/2016 Constitutional insomnia 09/27/2016 Eyes No blindness 09/27/2016 Eyes No vision change 09/27/2016 Ears/Nose/Throat/Neck No dizziness 09/27/2016 Ears/Nose/Throat/Neck hearing loss 09/27/2016 Ears/Nose/Throat/Neck nasal allergies 09/27/2016 Ears/Nose/Throat/Neck No sore throat 09/27/2016 Cardiovascular No chest pain/pressure 09/27/2016 Cardiovascular No edema 09/27/2016 Cardiovascular No exercise intolerance 09/27/2016 Cardiovascular No fatigue 09/27/2016 Cardiovascular No palpitations 09/27/2016 Cardiovascular No syncope 09/27/2016 Respiratory No chest congestion 09/27/2016 Respiratory No cough 09/27/2016 Gastrointestinal No abdominal pain 09/27/2016 Gastrointestinal No constipation 09/27/2016 Gastrointestinal No diarrhea 09/27/2016 Gastrointestinal No nausea 09/27/2016 Gastrointestinal No vomiting 09/27/2016 Genitourinary/Nephrology No dysuria 09/27/2016 Genitourinary/Nephrology nocturia 09/27/2016 Genitourinary/Nephrology urinary urgency 09/27/2016 Genitourinary/Nephrology urinary frequency 09/27/2016 Genitourinary/Nephrology urinary incontinence 09/27/2016 Genitourinary/Nephrology urinary retention/hesitancy 09/27/2016 Musculoskeletal No stiffness 09/27/2016 Musculoskeletal No swelling 09/27/2016 Musculoskeletal No muscle weakness 09/27/2016 Musculoskeletal No myalgias 09/27/2016 Dermatologic No rash 09/27/2016 Neurologic No alteration of consciousness 09/27/2016 Neurologic No mental status change 09/27/2016 Psychiatric No anxiety 09/27/2016 Psychiatric depression 09/27/2016 Constitutional No chills 06/28/2016 Constitutional No diaphoresis 06/28/2016 Constitutional No fatigue 06/28/2016 Constitutional No fever 06/28/2016 Constitutional insomnia 06/28/2016 Eyes No blindness 06/28/2016 Eyes No vision change 06/28/2016 Ears/Nose/Throat/Neck No dizziness 06/28/2016 Ears/Nose/Throat/Neck nasal allergies 06/28/2016 Ears/Nose/Throat/Neck No sore throat 06/28/2016 Cardiovascular No chest pain/pressure 06/28/2016 Cardiovascular No edema 06/28/2016 Cardiovascular No exercise intolerance 06/28/2016 Cardiovascular No fatigue 06/28/2016 Cardiovascular No palpitations 06/28/2016 Cardiovascular No syncope 06/28/2016 Respiratory No chest congestion 06/28/2016 Respiratory No cough 06/28/2016 Gastrointestinal No abdominal pain 06/28/2016 Gastrointestinal No constipation 06/28/2016 Gastrointestinal No diarrhea 06/28/2016 Gastrointestinal No nausea 06/28/2016 Gastrointestinal No vomiting 06/28/2016 Genitourinary/Nephrology No dysuria 06/28/2016 Genitourinary/Nephrology nocturia 06/28/2016 Genitourinary/Nephrology urinary urgency 06/28/2016 Genitourinary/Nephrology urinary frequency 06/28/2016 Genitourinary/Nephrology No urinary incontinence 06/28/2016 Genitourinary/Nephrology urinary retention/hesitancy 06/28/2016 Musculoskeletal No stiffness 06/28/2016 Musculoskeletal No swelling 06/28/2016 Musculoskeletal No muscle weakness 06/28/2016 Musculoskeletal No myalgias 06/28/2016 Dermatologic No rash 06/28/2016 Neurologic No alteration of consciousness 06/28/2016 Neurologic No mental status change 06/28/2016 Ears/Nose/Throat/Neck hearing loss 06/28/2016 Dermatologic sores 06/28/2016 Constitutional No chills 04/27/2016 Constitutional No diaphoresis 04/27/2016 Constitutional No fatigue 04/27/2016 Constitutional No fever 04/27/2016 Constitutional insomnia 04/27/2016 Eyes No blindness 04/27/2016 Eyes No vision change 04/27/2016 Ears/Nose/Throat/Neck No dizziness 04/27/2016 Ears/Nose/Throat/Neck nasal allergies 04/27/2016 Ears/Nose/Throat/Neck No sore throat 04/27/2016 Cardiovascular No chest pain/pressure 04/27/2016 Cardiovascular No edema 04/27/2016 Cardiovascular No exercise intolerance 04/27/2016 Cardiovascular No fatigue 04/27/2016 Cardiovascular No palpitations 04/27/2016 Cardiovascular No syncope 04/27/2016 Respiratory No chest congestion 04/27/2016 Respiratory No cough 04/27/2016 Gastrointestinal No abdominal pain 04/27/2016 Gastrointestinal No constipation 04/27/2016 Gastrointestinal No diarrhea 04/27/2016 Gastrointestinal No nausea 04/27/2016 Gastrointestinal No vomiting 04/27/2016 Genitourinary/Nephrology No dysuria 04/27/2016 Genitourinary/Nephrology nocturia 04/27/2016 Genitourinary/Nephrology urinary urgency 04/27/2016 Genitourinary/Nephrology urinary frequency 04/27/2016 Genitourinary/Nephrology No urinary incontinence 04/27/2016 Genitourinary/Nephrology urinary retention/hesitancy 04/27/2016 Musculoskeletal No stiffness 04/27/2016 Musculoskeletal No swelling 04/27/2016 Musculoskeletal No muscle weakness 04/27/2016 Musculoskeletal No myalgias 04/27/2016 Dermatologic No rash 04/27/2016 Neurologic No alteration of consciousness 04/27/2016 Neurologic No mental status change 04/27/2016 Constitutional No recent illness 02/17/2016 Constitutional No anorexia 02/17/2016 Constitutional No night sweats 02/17/2016 Constitutional No chills 02/17/2016 Constitutional No diaphoresis 02/17/2016 Constitutional No fever 02/17/2016 Eyes No blindness 02/17/2016 Eyes No vision change 02/17/2016 Ears/Nose/Throat/Neck No dizziness 02/17/2016 Ears/Nose/Throat/Neck nasal allergies 02/17/2016 Ears/Nose/Throat/Neck No sore throat 02/17/2016 Cardiovascular No chest pain/pressure 02/17/2016 Cardiovascular edema 02/17/2016 Cardiovascular No exercise intolerance 02/17/2016 Cardiovascular No fatigue 02/17/2016 Cardiovascular No palpitations 02/17/2016 Cardiovascular No syncope 02/17/2016 Respiratory No chest congestion 02/17/2016 Respiratory No cough 02/17/2016 Gastrointestinal No abdominal pain 02/17/2016 Gastrointestinal No constipation 02/17/2016 Gastrointestinal No diarrhea 02/17/2016 Gastrointestinal No nausea 02/17/2016 Gastrointestinal No vomiting 02/17/2016 Genitourinary/Nephrology No dysuria 02/17/2016 Genitourinary/Nephrology No urinary incontinence 02/17/2016 Musculoskeletal No stiffness 02/17/2016 Musculoskeletal No swelling 02/17/2016 Musculoskeletal No muscle weakness 02/17/2016 Musculoskeletal No myalgias 02/17/2016 Neurologic No alteration of consciousness 02/17/2016 Neurologic No mental status change 02/17/2016 Psychiatric No anxiety 02/17/2016 Psychiatric No depression 02/17/2016 Dermatologic No erythema 02/17/2016 Constitutional fatigue 02/17/2016 Constitutional No insomnia 02/17/2016 Constitutional No malaise 02/17/2016 Genitourinary/Nephrology nocturia 02/17/2016 Musculoskeletal back pain 02/17/2016 Constitutional No recent illness 01/20/2016 Constitutional No anorexia 01/20/2016 Constitutional No night sweats 01/20/2016 Constitutional No chills 01/20/2016 Constitutional No diaphoresis 01/20/2016 Constitutional fatigue 01/20/2016 Constitutional No fever 01/20/2016 Eyes No blindness 01/20/2016 Eyes No vision change 01/20/2016 Ears/Nose/Throat/Neck No dizziness 01/20/2016 Ears/Nose/Throat/Neck nasal allergies 01/20/2016 Ears/Nose/Throat/Neck No sore throat 01/20/2016 Cardiovascular No chest pain/pressure 01/20/2016 Cardiovascular edema 01/20/2016 Cardiovascular No exercise intolerance 01/20/2016 Cardiovascular No fatigue 01/20/2016 Cardiovascular No palpitations 01/20/2016 Cardiovascular No syncope 01/20/2016 Respiratory No chest congestion 01/20/2016 Respiratory No cough 01/20/2016 Gastrointestinal No abdominal pain 01/20/2016 Gastrointestinal No constipation 01/20/2016 Gastrointestinal No diarrhea 01/20/2016 Gastrointestinal No nausea 01/20/2016 Gastrointestinal No vomiting 01/20/2016 Genitourinary/Nephrology No dysuria 01/20/2016 Genitourinary/Nephrology No urinary incontinence 01/20/2016 Musculoskeletal No stiffness 01/20/2016 Musculoskeletal No swelling 01/20/2016 Musculoskeletal No muscle weakness 01/20/2016 Musculoskeletal No myalgias 01/20/2016 Dermatologic erythema 01/20/2016 Neurologic No alteration of consciousness 01/20/2016 Neurologic No mental status change 01/20/2016 Psychiatric No anxiety 01/20/2016 Psychiatric No depression 01/20/2016 Constitutional No chills 01/06/2016 Constitutional No diaphoresis 01/06/2016 Constitutional fatigue 01/06/2016 Constitutional No fever 01/06/2016 Eyes No blindness 01/06/2016 Eyes No vision change 01/06/2016 Ears/Nose/Throat/Neck No dizziness 01/06/2016 Ears/Nose/Throat/Neck nasal allergies 01/06/2016 Ears/Nose/Throat/Neck No sore throat 01/06/2016 Cardiovascular No chest pain/pressure 01/06/2016 Cardiovascular edema 01/06/2016 Cardiovascular No exercise intolerance 01/06/2016 Cardiovascular No fatigue 01/06/2016 Cardiovascular No palpitations 01/06/2016 Cardiovascular No syncope 01/06/2016 Respiratory No chest congestion 01/06/2016 Respiratory No cough 01/06/2016 Gastrointestinal No abdominal pain 01/06/2016 Gastrointestinal No constipation 01/06/2016 Gastrointestinal No diarrhea 01/06/2016 Gastrointestinal No nausea 01/06/2016 Gastrointestinal No vomiting 01/06/2016 Genitourinary/Nephrology No dysuria 01/06/2016 Genitourinary/Nephrology No urinary incontinence 01/06/2016 Musculoskeletal No stiffness 01/06/2016 Musculoskeletal No swelling 01/06/2016 Musculoskeletal No muscle weakness 01/06/2016 Musculoskeletal No myalgias 01/06/2016 Neurologic No alteration of consciousness 01/06/2016 Neurologic No mental status change 01/06/2016 Psychiatric No anxiety 01/06/2016 Psychiatric No depression 01/06/2016 Constitutional No recent illness 01/06/2016 Constitutional No anorexia 01/06/2016 Constitutional No night sweats 01/06/2016 Dermatologic erythema 01/06/2016 Constitutional No chills 12/16/2015 Constitutional No diaphoresis 12/16/2015 Constitutional No fatigue 12/16/2015 Constitutional No fever 12/16/2015 Eyes No blindness 12/16/2015 Eyes No vision change 12/16/2015 Ears/Nose/Throat/Neck No dizziness 12/16/2015 Ears/Nose/Throat/Neck No nasal allergies 12/16/2015 Ears/Nose/Throat/Neck No sore throat 12/16/2015 Cardiovascular No chest pain/pressure 12/16/2015 Respiratory No chest congestion 12/16/2015 Respiratory No cough 12/16/2015 Gastrointestinal No abdominal pain 12/16/2015 Gastrointestinal No constipation 12/16/2015 Gastrointestinal No diarrhea 12/16/2015 Gastrointestinal No nausea 12/16/2015 Gastrointestinal No vomiting 12/16/2015 Genitourinary/Nephrology No dysuria 12/16/2015 Neurologic No alteration of consciousness 12/16/2015 Neurologic No mental status change 12/16/2015 Psychiatric anxiety 12/16/2015 Psychiatric No depression 12/16/2015 Constitutional No night sweats 12/16/2015 Constitutional recent illness 12/16/2015 Constitutional anorexia 12/16/2015 Constitutional malaise 12/16/2015 Cardiovascular dyspnea 12/16/2015 Cardiovascular fatigue 12/16/2015 Respiratory dyspnea on exertion 12/16/2015 Musculoskeletal joint complaint 12/16/2015 Dermatologic erythema 12/16/2015 Ears/Nose/Throat/Neck hearing loss 12/16/2015 Constitutional No night sweats 11/27/2015 Constitutional recent illness 11/27/2015 Constitutional anorexia 11/27/2015 Constitutional malaise 11/27/2015 Eyes No eye erythema 11/27/2015 Eyes No vision change 11/27/2015 Ears/Nose/Throat/Neck No dizziness 11/27/2015 Ears/Nose/Throat/Neck hearing loss 11/27/2015 Ears/Nose/Throat/Neck No nasal allergies 11/27/2015 Ears/Nose/Throat/Neck No sore throat 11/27/2015 Cardiovascular No chest pain/pressure 11/27/2015 Cardiovascular dyspnea 11/27/2015 Cardiovascular fatigue 11/27/2015 Respiratory dyspnea on exertion 11/27/2015 Gastrointestinal No abdominal pain 11/27/2015 Gastrointestinal No constipation 11/27/2015 Gastrointestinal No diarrhea 11/27/2015 Gastrointestinal No nausea 11/27/2015 Gastrointestinal No vomiting 11/27/2015 Genitourinary/Nephrology No dysuria 11/27/2015 Neurologic No alteration of consciousness 11/27/2015 Neurologic No mental status change 11/27/2015 Psychiatric anxiety 11/27/2015 Psychiatric No depression 11/27/2015 Constitutional fatigue 11/27/2015 Cardiovascular exercise intolerance 11/27/2015 Respiratory dyspnea 11/27/2015 Constitutional No chills 07/30/2015 Constitutional No diaphoresis 07/30/2015 Constitutional No fatigue 07/30/2015 Constitutional No fever 07/30/2015 Constitutional insomnia 07/30/2015 Eyes No blindness 07/30/2015 Eyes No vision change 07/30/2015 Ears/Nose/Throat/Neck No dizziness 07/30/2015 Ears/Nose/Throat/Neck nasal allergies 07/30/2015 Ears/Nose/Throat/Neck No sore throat 07/30/2015 Cardiovascular No chest pain/pressure 07/30/2015 Cardiovascular No edema 07/30/2015 Cardiovascular No exercise intolerance 07/30/2015 Cardiovascular No fatigue 07/30/2015 Cardiovascular No palpitations 07/30/2015 Cardiovascular No syncope 07/30/2015 Respiratory No chest congestion 07/30/2015 Respiratory No cough 07/30/2015 Gastrointestinal No abdominal pain 07/30/2015 Gastrointestinal No constipation 07/30/2015 Gastrointestinal No diarrhea 07/30/2015 Gastrointestinal No nausea 07/30/2015 Gastrointestinal No vomiting 07/30/2015 Genitourinary/Nephrology No dysuria 07/30/2015 Genitourinary/Nephrology nocturia 07/30/2015 Genitourinary/Nephrology urinary urgency 07/30/2015 Genitourinary/Nephrology urinary frequency 07/30/2015 Genitourinary/Nephrology No urinary incontinence 07/30/2015 Genitourinary/Nephrology urinary retention/hesitancy 07/30/2015 Musculoskeletal No stiffness 07/30/2015 Musculoskeletal No swelling 07/30/2015 Musculoskeletal No muscle weakness 07/30/2015 Musculoskeletal No myalgias 07/30/2015 Dermatologic No rash 07/30/2015 Neurologic No alteration of consciousness 07/30/2015 Neurologic No mental status change 07/30/2015 Psychiatric No anxiety 07/30/2015 Psychiatric No depression 07/30/2015 Constitutional No chills 06/09/2015 Constitutional No diaphoresis 06/09/2015 Constitutional No fatigue 06/09/2015 Constitutional No fever 06/09/2015 Constitutional insomnia 06/09/2015 Eyes No blindness 06/09/2015 Eyes No vision change 06/09/2015 Ears/Nose/Throat/Neck No dizziness 06/09/2015 Ears/Nose/Throat/Neck nasal allergies 06/09/2015 Ears/Nose/Throat/Neck No sore throat 06/09/2015 Cardiovascular No chest pain/pressure 06/09/2015 Cardiovascular No edema 06/09/2015 Cardiovascular No exercise intolerance 06/09/2015 Cardiovascular No fatigue 06/09/2015 Cardiovascular No palpitations 06/09/2015 Cardiovascular No syncope 06/09/2015 Respiratory No chest congestion 06/09/2015 Respiratory No cough 06/09/2015 Gastrointestinal No abdominal pain 06/09/2015 Gastrointestinal No constipation 06/09/2015 Gastrointestinal No diarrhea 06/09/2015 Gastrointestinal No nausea 06/09/2015 Gastrointestinal No vomiting 06/09/2015 Genitourinary/Nephrology No dysuria 06/09/2015 Genitourinary/Nephrology nocturia 06/09/2015 Genitourinary/Nephrology urinary urgency 06/09/2015 Genitourinary/Nephrology urinary frequency 06/09/2015 Genitourinary/Nephrology No urinary incontinence 06/09/2015 Genitourinary/Nephrology urinary retention/hesitancy 06/09/2015 Musculoskeletal No stiffness 06/09/2015 Musculoskeletal No swelling 06/09/2015 Musculoskeletal No muscle weakness 06/09/2015 Musculoskeletal No myalgias 06/09/2015 Dermatologic No rash 06/09/2015 Neurologic No alteration of consciousness 06/09/2015 Neurologic No mental status change 06/09/2015 Gastrointestinal gastroesophageal reflux 06/09/2015 Constitutional No chills 04/29/2015 Constitutional No diaphoresis 04/29/2015 Constitutional No fatigue 04/29/2015 Constitutional No fever 04/29/2015 Constitutional insomnia 04/29/2015 Eyes No blindness 04/29/2015 Eyes No vision change 04/29/2015 Ears/Nose/Throat/Neck No dizziness 04/29/2015 Ears/Nose/Throat/Neck nasal allergies 04/29/2015 Ears/Nose/Throat/Neck No sore throat 04/29/2015 Cardiovascular No chest pain/pressure 04/29/2015 Cardiovascular No edema 04/29/2015 Cardiovascular No exercise intolerance 04/29/2015 Cardiovascular No fatigue 04/29/2015 Cardiovascular No palpitations 04/29/2015 Cardiovascular No syncope 04/29/2015 Respiratory No chest congestion 04/29/2015 Respiratory No cough 04/29/2015 Gastrointestinal No abdominal pain 04/29/2015 Gastrointestinal No constipation 04/29/2015 Gastrointestinal No diarrhea 04/29/2015 Gastrointestinal No nausea 04/29/2015 Gastrointestinal No vomiting 04/29/2015 Genitourinary/Nephrology No dysuria 04/29/2015 Genitourinary/Nephrology nocturia 04/29/2015 Genitourinary/Nephrology urinary urgency 04/29/2015 Genitourinary/Nephrology urinary frequency 04/29/2015 Genitourinary/Nephrology No urinary incontinence 04/29/2015 Genitourinary/Nephrology urinary retention/hesitancy 04/29/2015 Musculoskeletal No stiffness 04/29/2015 Musculoskeletal No swelling 04/29/2015 Musculoskeletal No muscle weakness 04/29/2015 Musculoskeletal No myalgias 04/29/2015 Dermatologic No rash 04/29/2015 Neurologic No alteration of consciousness 04/29/2015 Neurologic No mental status change 04/29/2015 Constitutional recent illness 02/19/2015 Genitourinary/Nephrology No dysuria 02/19/2015 Genitourinary/Nephrology nocturia 02/19/2015 Genitourinary/Nephrology No urinary incontinence 02/19/2015 Genitourinary/Nephrology urinary frequency 02/19/2015 Genitourinary/Nephrology urinary urgency 02/19/2015 Constitutional insomnia 02/19/2015 Constitutional No chills 02/19/2015 Constitutional No diaphoresis 02/19/2015 Constitutional No fatigue 02/19/2015 Constitutional No fever 02/19/2015 Ears/Nose/Throat/Neck No dizziness 02/19/2015 Ears/Nose/Throat/Neck No sore throat 02/19/2015 Cardiovascular No chest pain/pressure 02/19/2015 Cardiovascular No edema 02/19/2015 Cardiovascular No exercise intolerance 02/19/2015 Cardiovascular No fatigue 02/19/2015 Cardiovascular No palpitations 02/19/2015 Cardiovascular No syncope 02/19/2015 Respiratory No chest congestion 02/19/2015 Respiratory No cough 02/19/2015 Gastrointestinal No abdominal pain 02/19/2015 Gastrointestinal No constipation 02/19/2015 Gastrointestinal No diarrhea 02/19/2015 Gastrointestinal No nausea 02/19/2015 Gastrointestinal No vomiting 02/19/2015 Dermatologic No rash 02/19/2015 Neurologic No alteration of consciousness 02/19/2015 Neurologic No mental status change 02/19/2015 Genitourinary/Nephrology urinary retention/hesitancy 02/19/2015 Musculoskeletal No stiffness 02/19/2015 Musculoskeletal No swelling 02/19/2015 Musculoskeletal No muscle weakness 02/19/2015 Musculoskeletal No myalgias 02/19/2015 Eyes No blindness 02/19/2015 Eyes No vision change 02/19/2015 Ears/Nose/Throat/Neck nasal allergies 02/19/2015 Physical Exam Exam Name System Name Item Name Status Result Effective Dates Notes Full Exam - General 1994 Constitutional general appearance Development: well developed 03/05/2019 None Full Exam - General 1994 Constitutional general appearance Development: appears stated age 0503/05/2019 None Full Exam - General 1994 Constitutional general appearance Hygiene/Attention to Grooming: good hygiene 03/05/2019 None Full Exam - General 1994 Eyes conjunctiva/eyelids Overall: conjunctiva clear 03/05/2019 None Full Exam - General 1994 Eyes conjunctiva/eyelids Overall: cornea clear 03/05/2019 None Full Exam - General 1994 Eyes conjunctiva/eyelids Overall: eyelids normal 03/05/2019 None Full Exam - General 1994 Eyes pupils and irises Overall: pupils equal, round, reactive to light and accomodation 03/05/2019 None Full Exam - General 1994 Ears/Nose/Throat external ear Overall: normal appearance 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 Full Exam - General 1994 Ears/Nose/Throat lips/teeth/gingiva Overall: normal dentition 03/05/2019 None Full Exam - General 1994 Ears/Nose/Throat lips/teeth/gingiva Lips: ulceration 03/05/2019 left lower lip Full Exam - General 1994 Ears/Nose/Throat oral cavity/pharynx/larynx Overall: oral mucosa clear 03/05/2019 None Full Exam - General 1994 Ears/Nose/Throat oral cavity/pharynx/larynx Overall: oropharyngeal mucosa clear 03/05/2019 None Full Exam - General 1994 Ears/Nose/Throat oral cavity/pharynx/larynx Overall: hypopharynx benign 03/05/2019 None Full Exam - General 1994 Ears/Nose/Throat oral cavity/pharynx/larynx Overall: no masses 03/05/2019 None Full Exam - General 1994 Respiratory auscultation Overall: breath sounds clear bilaterally 03/05/2019 None Full Exam - General 1994 Respiratory respiratory effort/rhythm Overall: no retractions 03/05/2019 None Full Exam - General 1994 Respiratory respiratory effort/rhythm Overall: normal rate 03/05/2019 None Full Exam - General 1994 Cardiovascular extremities Overall: no clubbing 03/05/2019 None Full Exam - General 1994 Cardiovascular auscultation of heart Overall: regular rate 03/05/2019 None Full Exam - General 1994 Cardiovascular auscultation of heart Overall: normal heart sounds 03/05/2019 None Full Exam - General 1994 Cardiovascular auscultation of heart Systolic murmur: midsystolic 03/05/2019 None Full Exam - General 1994 Abdomen abdominal exam Overall: no tenderness 03/05/2019 None Full Exam - General 1994 Abdomen abdominal exam Overall: normal bowel sounds 03/05/2019 None Full Exam - General 1994 Abdomen rectal exam Prostate: enlarged 03/05/2019 None Full Exam - General 1994 Abdomen stool sample obtained Overall: normal appearance 03/05/2019 None Full Exam - General 1994 Abdomen stool sample obtained Overall: occult blood negative 03/05/2019 None Full Exam - General 1994 Lymphatic neck nodes Overall: anterior cervical chain benign 03/05/2019 None Full Exam - General 1994 Lymphatic neck nodes Overall: posterior cervical chain benign 03/05/2019 None Full Exam - General 1994 Neurologic cranial nerves Overall: crainial nerves 2 - 12 grossly intact 03/05/2019 None Full Exam - General 1994 Psychiatric orientation/consciousness Overall: oriented to person, place and time 03/05/2019 None Full Exam - General 1994 Psychiatric mood and affect Overall: normal mood and affect 03/05/2019 None Full Exam - General 1994 Constitutional general appearance Development: well developed 02/12/2019 None Full Exam - General 1994 Constitutional general appearance Development: appears stated age 0402/12/2019 None Full Exam - General 1994 Constitutional general appearance Hygiene/Attention to Grooming: good hygiene 02/12/2019 None Full Exam - General 1994 Eyes conjunctiva/eyelids Overall: conjunctiva clear 02/12/2019 None Full Exam - General 1994 Eyes conjunctiva/eyelids Overall: cornea clear 02/12/2019 None Full Exam - General 1994 Eyes conjunctiva/eyelids Overall: eyelids normal 02/12/2019 None Full Exam - General 1994 Eyes pupils and irises Overall: pupils equal, round, reactive to light and accomodation 02/12/2019 None Full Exam - General 1994 Ears/Nose/Throat external ear Overall: normal appearance 02/12/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 Full Exam - General 1994 Ears/Nose/Throat lips/teeth/gingiva Overall: normal dentition 02/12/2019 None Full Exam - General 1994 Ears/Nose/Throat oral cavity/pharynx/larynx Overall: oral mucosa clear 02/12/2019 None Full Exam - General 1994 Ears/Nose/Throat oral cavity/pharynx/larynx Overall: oropharyngeal mucosa clear 02/12/2019 None Full Exam - General 1994 Ears/Nose/Throat oral cavity/pharynx/larynx Overall: hypopharynx benign 02/12/2019 None Full Exam - General 1994 Ears/Nose/Throat oral cavity/pharynx/larynx Overall: no masses 02/12/2019 None Full Exam - General 1994 Respiratory auscultation Overall: breath sounds clear bilaterally 02/12/2019 None Full Exam - General 1994 Respiratory respiratory effort/rhythm Overall: no retractions 02/12/2019 None Full Exam - General 1994 Respiratory respiratory effort/rhythm Overall: normal rate 02/12/2019 None Full Exam - General 1994 Cardiovascular extremities Overall: no clubbing 02/12/2019 None Full Exam - General 1994 Cardiovascular auscultation of heart Overall: regular rate 02/12/2019 None Full Exam - General 1994 Cardiovascular auscultation of heart Overall: normal heart sounds 02/12/2019 None Full Exam - General 1994 Cardiovascular auscultation of heart Systolic murmur: midsystolic 02/12/2019 None Full Exam - General 1994 Abdomen abdominal exam Overall: no tenderness 02/12/2019 None Full Exam - General 1994 Abdomen abdominal exam Overall: normal bowel sounds 02/12/2019 None Full Exam - General 1994 Abdomen stool sample obtained Overall: normal appearance 02/12/2019 None Full Exam - General 1994 Abdomen stool sample obtained Overall: occult blood negative 02/12/2019 None Full Exam - General 1994 Lymphatic neck nodes Overall: anterior cervical chain benign 02/12/2019 None Full Exam - General 1994 Lymphatic neck nodes Overall: posterior cervical chain benign 02/12/2019 None Full Exam - General 1994 Neurologic cranial nerves Overall: crainial nerves 2 - 12 grossly intact 02/12/2019 None Full Exam - General 1994 Psychiatric orientation/consciousness Overall: oriented to person, place and time 02/12/2019 None Full Exam - General 1994 Psychiatric mood and affect Overall: normal mood and affect 02/12/2019 None Full Exam - General 1994 Constitutional general appearance Development: well developed 01/29/2019 None Full Exam - General 1994 Constitutional general appearance Development: appears stated age 0401/29/2019 None Full Exam - General 1994 Constitutional general appearance Hygiene/Attention to Grooming: good hygiene 01/29/2019 None Full Exam - General 1994 Eyes conjunctiva/eyelids Overall: conjunctiva clear 01/29/2019 None Full Exam - General 1994 Eyes conjunctiva/eyelids Overall: cornea clear 01/29/2019 None Full Exam - General 1994 Eyes conjunctiva/eyelids Overall: eyelids normal 01/29/2019 None Full Exam - General 1994 Eyes pupils and irises Overall: pupils equal, round, reactive to light and accomodation 01/29/2019 None Full Exam - General 1994 Ears/Nose/Throat external ear Overall: normal appearance 01/29/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 Full Exam - General 1994 Ears/Nose/Throat lips/teeth/gingiva Overall: normal dentition 01/29/2019 None Full Exam - General 1994 Ears/Nose/Throat lips/teeth/gingiva Lips: ulceration 01/29/2019 left lower lip Full Exam - General 1994 Ears/Nose/Throat oral cavity/pharynx/larynx Overall: oral mucosa clear 01/29/2019 None Full Exam - General 1994 Ears/Nose/Throat oral cavity/pharynx/larynx Overall: oropharyngeal mucosa clear 01/29/2019 None Full Exam - General 1994 Ears/Nose/Throat oral cavity/pharynx/larynx Overall: hypopharynx benign 01/29/2019 None Full Exam - General 1994 Ears/Nose/Throat oral cavity/pharynx/larynx Overall: no masses 01/29/2019 None Full Exam - General 1994 Respiratory auscultation Overall: breath sounds clear bilaterally 01/29/2019 None Full Exam - General 1994 Respiratory respiratory effort/rhythm Overall: no retractions 01/29/2019 None Full Exam - General 1994 Respiratory respiratory effort/rhythm Overall: normal rate 01/29/2019 None Full Exam - General 1994 Cardiovascular extremities Overall: no clubbing 01/29/2019 None Full Exam - General 1994 Cardiovascular auscultation of heart Overall: regular rate 01/29/2019 None Full Exam - General 1994 Cardiovascular auscultation of heart Overall: normal heart sounds 01/29/2019 None Full Exam - General 1994 Cardiovascular auscultation of heart Systolic murmur: midsystolic 01/29/2019 None Full Exam - General 1994 Abdomen abdominal exam Overall: no tenderness 01/29/2019 None Full Exam - General 1994 Abdomen abdominal exam Overall: normal bowel sounds 01/29/2019 None Full Exam - General 1994 Abdomen rectal exam Prostate: enlarged 01/29/2019 None Full Exam - General 1994 Abdomen stool sample obtained Overall: normal appearance 01/29/2019 None Full Exam - General 1994 Abdomen stool sample obtained Overall: occult blood negative 01/29/2019 None Full Exam - General 1994 Lymphatic neck nodes Overall: anterior cervical chain benign 01/29/2019 None Full Exam - General 1994 Lymphatic neck nodes Overall: posterior cervical chain benign 01/29/2019 None Full Exam - General 1994 Neurologic cranial nerves Overall: crainial nerves 2 - 12 grossly intact 01/29/2019 None Full Exam - General 1994 Psychiatric orientation/consciousness Overall: oriented to person, place and time 01/29/2019 None Full Exam - General 1994 Psychiatric mood and affect Overall: normal mood and affect 01/29/2019 None Full Exam - Orthopedics Constitutional general appearance Overall: well nourished 2019 None Full Exam - Orthopedics Constitutional general appearance Overall: well developed 2019 None Full Exam - Orthopedics Constitutional general appearance Overall: in no acute distress 2019 None Full Exam - Orthopedics Eyes conjunctiva/eyelids Overall: conjunctiva clear 2019 None Full Exam - Orthopedics Eyes conjunctiva/eyelids Overall: eyelids normal 2019 None Full Exam - Orthopedics Ears/Nose/Throat lips/teeth/gingiva Overall: benign lips 2019 None Full Exam - Orthopedics Ears/Nose/Throat oral cavity/pharynx/larynx Overall: oral mucosa clear 2019 None Full Exam - Orthopedics Respiratory respiratory effort/rhythm Overall: no retractions 2019 None Full Exam - Orthopedics Respiratory respiratory effort/rhythm Overall: normal rate 2019 None Full Exam - Orthopedics Psychiatric orientation/consciousness Overall: oriented to person, place and time 2019 None Full Exam - Orthopedics Psychiatric mood and affect Overall: normal mood and affect 2019 None Full Exam - Orthopedics Psychiatric appearance Overall: well-groomed, good eye contact 2019 None Full Exam - Orthopedics MS: head/neck insp & palp - H/N Overall: head atraumatic 2019 None Full Exam - Orthopedics MS: spine/rib/pelvis insp & palp - S/R/P Ribs/trunk inspection: normal ribs and sternum 2019 tender to palpation on left anterior lower ribs Full Exam - General 1994 Constitutional general appearance Development: well developed 01/08/2019 None Full Exam - General 1994 Constitutional general appearance Development: appears stated age 0301/08/2019 None Full Exam - General 1994 Constitutional general appearance Hygiene/Attention to Grooming: good hygiene 01/08/2019 None Full Exam - General 1994 Eyes conjunctiva/eyelids Overall: conjunctiva clear 01/08/2019 None Full Exam - General 1994 Eyes conjunctiva/eyelids Overall: cornea clear 01/08/2019 None Full Exam - General 1994 Eyes conjunctiva/eyelids Overall: eyelids normal 01/08/2019 None Full Exam - General 1994 Eyes pupils and irises Overall: pupils equal, round, reactive to light and accomodation 01/08/2019 None Full Exam - General 1994 Ears/Nose/Throat external ear Overall: normal appearance 01/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 Full Exam - General 1994 Ears/Nose/Throat lips/teeth/gingiva Overall: normal dentition 01/08/2019 None Full Exam - General 1994 Ears/Nose/Throat oral cavity/pharynx/larynx Overall: oral mucosa clear 01/08/2019 None Full Exam - General 1994 Ears/Nose/Throat oral cavity/pharynx/larynx Overall: oropharyngeal mucosa clear 01/08/2019 None Full Exam - General 1994 Ears/Nose/Throat oral cavity/pharynx/larynx Overall: hypopharynx benign 01/08/2019 None Full Exam - General 1994 Ears/Nose/Throat oral cavity/pharynx/larynx Overall: no masses 01/08/2019 None Full Exam - General 1994 Respiratory auscultation Overall: breath sounds clear bilaterally 01/08/2019 None Full Exam - General 1994 Respiratory respiratory effort/rhythm Overall: no retractions 01/08/2019 None Full Exam - General 1994 Respiratory respiratory effort/rhythm Overall: normal rate 01/08/2019 None Full Exam - General 1994 Cardiovascular extremities Overall: no clubbing 01/08/2019 None Full Exam - General 1994 Cardiovascular auscultation of heart Overall: regular rate 01/08/2019 None Full Exam - General 1994 Cardiovascular auscultation of heart Overall: normal heart sounds 01/08/2019 None Full Exam - General 1994 Cardiovascular auscultation of heart Systolic murmur: midsystolic 01/08/2019 None Full Exam - General 1994 Lymphatic neck nodes Overall: anterior cervical chain benign 01/08/2019 None Full Exam - General 1994 Lymphatic neck nodes Overall: posterior cervical chain benign 01/08/2019 None Full Exam - General 1994 Neurologic cranial nerves Overall: crainial nerves 2 - 12 grossly intact 01/08/2019 None Full Exam - General 1994 Psychiatric orientation/consciousness Overall: oriented to person, place and time 01/08/2019 None Full Exam - General 1994 Psychiatric mood and affect Overall: normal mood and affect 01/08/2019 None Full Exam - General 1994 Constitutional general appearance Development: well developed 12/25/2018 None Full Exam - General 1994 Constitutional general appearance Development: appears stated age 0312/25/2018 None Full Exam - General 1994 Constitutional general appearance Hygiene/Attention to Grooming: good hygiene 12/25/2018 None Full Exam - General 1994 Eyes conjunctiva/eyelids Overall: conjunctiva clear 12/25/2018 None Full Exam - General 1994 Eyes conjunctiva/eyelids Overall: cornea clear 12/25/2018 None Full Exam - General 1994 Eyes conjunctiva/eyelids Overall: eyelids normal 12/25/2018 None Full Exam - General 1994 Eyes pupils and irises Overall: pupils equal, round, reactive to light and accomodation 12/25/2018 None Full Exam - General 1994 Ears/Nose/Throat external ear Overall: normal appearance 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/2018 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 Full Exam - General 1994 Ears/Nose/Throat lips/teeth/gingiva Overall: normal dentition 12/25/2018 None Full Exam - General 1994 Ears/Nose/Throat lips/teeth/gingiva Lips: stichtes d/i 12/25/2018 None Full Exam - General 1994 Ears/Nose/Throat oral cavity/pharynx/larynx Overall: oral mucosa clear 12/25/2018 None Full Exam - General 1994 Ears/Nose/Throat oral cavity/pharynx/larynx Overall: oropharyngeal mucosa clear 12/25/2018 None Full Exam - General 1995 Ears/Nose/Throat oral cavity/pharynx/larynx Overall: hypopharynx benign 12/25/2018 None Full Exam - General 1995 Ears/Nose/Throat oral cavity/pharynx/larynx Overall: no masses 12/25/2018 None Full Exam - General 1994 Respiratory auscultation Overall: breath sounds clear bilaterally 12/25/2018 None Full Exam - General 1994 Respiratory respiratory effort/rhythm Overall: no retractions 12/25/2018 None Full Exam - General 1994 Respiratory respiratory effort/rhythm Overall: normal rate 12/25/2018 None Full Exam - General 1994 Cardiovascular extremities Overall: no clubbing 12/25/2018 None Full Exam - General 1994 Cardiovascular auscultation of heart Overall: regular rate 12/25/2018 None Full Exam - General 1994 Cardiovascular auscultation of heart Overall: normal heart sounds 12/25/2018 None Full Exam - General 1994 Cardiovascular auscultation of heart Systolic murmur: midsystolic 12/25/2018 None Full Exam - General 1994 Neurologic cranial nerves Overall: crainial nerves 2 - 12 grossly intact 12/25/2018 None Full Exam - General 1994 Psychiatric orientation/consciousness Overall: oriented to person, place and time 12/25/2018 None Full Exam - General 1994 Psychiatric mood and affect Overall: normal mood and affect 12/25/2018 None Full Exam - General 1994 Musculoskeletal head and neck Overall: head atraumatic 12/25/2018 None Full Exam - General 1994 Musculoskeletal gait and station Gait: unable to turn quickly 12/25/2018 None Full Exam - General 1994 Constitutional general appearance Development: well developed 12/13/2018 None Full Exam - General 1994 Constitutional general appearance Development: appears stated age 0212/13/2018 None Full Exam - General 1994 Constitutional general appearance Hygiene/Attention to Grooming: good hygiene 12/13/2018 None Full Exam - General 1994 Eyes conjunctiva/eyelids Overall: conjunctiva clear 12/13/2018 None Full Exam - General 1994 Eyes conjunctiva/eyelids Overall: cornea clear 12/13/2018 None Full Exam - General 1994 Eyes conjunctiva/eyelids Overall: eyelids normal 12/13/2018 None Full Exam - General 1994 Eyes pupils and irises Overall: pupils equal, round, reactive to light and accomodation 12/13/2018 None Full Exam - General 1994 Ears/Nose/Throat external ear Overall: normal appearance 12/13/2018 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 Full Exam - General 1995 Ears/Nose/Throat lips/teeth/gingiva Overall: normal dentition 12/13/2018 None Full Exam - General 1995 Ears/Nose/Throat lips/teeth/gingiva Lips: stichtes d/i 12/13/2018 None Full Exam - General 1995 Ears/Nose/Throat oral cavity/pharynx/larynx Overall: oral mucosa clear 12/13/2018 None Full Exam - General 1995 Ears/Nose/Throat oral cavity/pharynx/larynx Overall: oropharyngeal mucosa clear 12/13/2018 None Full Exam - General 1995 Ears/Nose/Throat oral cavity/pharynx/larynx Overall: hypopharynx benign 12/13/2018 None Full Exam - General 1994 Ears/Nose/Throat oral cavity/pharynx/larynx Overall: no masses 12/13/2018 [...] None Full Exam - General 1994 Eyes conjunctiva/eyelids Overall: conjunctiva clear 11/27/2018 None Full Exam - General 1994 Eyes conjunctiva/eyelids Overall: cornea clear 11/27/2018 None Full Exam - General 1994 Eyes conjunctiva/eyelids Overall: eyelids normal 11/27/2018 None Full Exam [...] 1994 Ears/Nose/Throat oral cavity/pharynx/larynx Overall: hypopharynx benign 11/27/2018 [...] None Full Exam - General 1994 Eyes conjunctiva/eyelids Overall: conjunctiva clear 09/26/2018 None Full Exam - General 1994 Eyes conjunctiva/eyelids Overall: cornea clear 09/26/2018 None Full Exam - General 1994 Eyes conjunctiva/eyelids Overall: eyelids normal 09/26/2018 None Full Exam [...] None Full Exam - General 1994 Eyes conjunctiva/eyelids Overall: conjunctiva clear 08/10/2018 None Full Exam - General 1994 Eyes conjunctiva/eyelids Overall: eyelids normal 08/10/2018 None Full Exam [...] None Full Exam - General 1994 Eyes conjunctiva/eyelids Overall: cornea clear 08/10/2018 None Full Exam - General 1994 Constitutional general appearance Development: well developed 07/26/2018 None Full Exam - General 1994 Constitutional general appearance Development: appears stated age 1007/26/2018 None Full Exam - General 1994 Constitutional general appearance Hygiene/Attention to Grooming: good hygiene 07/26/2018 None Full Exam - General 1994 Eyes conjunctiva/eyelids Overall: conjunctiva clear 07/26/2018 None Full Exam - General 1994 Eyes conjunctiva/eyelids Overall: cornea clear 07/26/2018 None Full Exam - General 1994 Eyes conjunctiva/eyelids Overall: eyelids normal 07/26/2018 None Full Exam [...] None Full Exam - General 1994 Eyes conjunctiva/eyelids Overall: conjunctiva clear 06/12/2018 None Full Exam - General 1994 Eyes conjunctiva/eyelids Overall: cornea clear 06/12/2018 None Full Exam - General 1994 Eyes conjunctiva/eyelids Overall: eyelids normal 06/12/2018 None Full Exam [...] None Full Exam - General 1994 Eyes conjunctiva/eyelids Overall: conjunctiva clear 05/10/2018 None Full Exam - General 1994 Eyes conjunctiva/eyelids Overall: cornea clear 05/10/2018 None Full Exam - General 1994 Eyes conjunctiva/eyelids Overall: eyelids normal 05/10/2018 None Full Exam [...] None Full Exam - General 1994 Eyes conjunctiva/eyelids Overall: conjunctiva clear 03/27/2018 None Full Exam - General 1994 Eyes conjunctiva/eyelids Overall: cornea clear 03/27/2018 None Full Exam - General 1994 Eyes conjunctiva/eyelids Overall: eyelids normal 03/27/2018 None Full Exam [...] None Full Exam - General 1994 Eyes conjunctiva/eyelids Overall: conjunctiva clear 01/24/2018 None Full Exam - General 1994 Eyes conjunctiva/eyelids Overall: cornea clear 01/24/2018 None Full Exam - General 1994 Eyes conjunctiva/eyelids Overall: eyelids normal 01/24/2018 None Full Exam - General 1994 Eyes pupils and irises Overall: pupils equal, round, reactive to light and accomodation 01/24/2018 None Full Exam - General 1994 Ears/Nose/Throat otoscopic exam Overall: external auditory canals clear 01/24/2018 None Full Exam - General 1994 Ears/Nose/Throat otoscopic exam Tympanic membrane: air-fluid level 01/24/2018 None Full Exam - General [...] None Full Exam - General 1994 Eyes conjunctiva/eyelids Overall: conjunctiva clear 12/08/2017 None Full Exam - General 1994 Eyes conjunctiva/eyelids Overall: cornea clear 12/08/2017 None Full Exam - General 1994 Eyes conjunctiva/eyelids Overall: eyelids normal 12/08/2017 None Full Exam [...] None Full Exam - General 1994 Eyes conjunctiva/eyelids Overall: conjunctiva clear 10/27/2017 None Full Exam - General 1994 Eyes conjunctiva/eyelids Overall: cornea clear 10/27/2017 None Full Exam - General 1994 Eyes conjunctiva/eyelids Overall: eyelids normal 10/27/2017 None Full Exam - General 1994 Eyes pupils and irises Overall: pupils equal, round, reactive to light and accomodation 10/27/2017 None Full Exam - General 1994 Ears/Nose/Throat otoscopic exam Overall: external auditory canals clear 10/27/2017 None Full Exam - General 1994 Ears/Nose/Throat otoscopic exam Tympanic membrane: air-fluid level 10/27/2017 None Full Exam - General [...] General 1994 Ears/Nose/Throat otoscopic exam Tympanic membrane: air-fluid level 09/29/2017 None Full Exam - General [...] None Full Exam - General 1994 Eyes conjunctiva/eyelids Overall: conjunctiva clear 09/01/2017 None Full Exam - General 1994 Eyes conjunctiva/eyelids Overall: cornea clear 09/01/2017 None Full Exam - General 1994 Eyes conjunctiva/eyelids Overall: eyelids normal 09/01/2017 None Full Exam - General 1994 Eyes pupils and irises Overall: pupils equal, round, reactive to light and accomodation 09/01/2017 None Full Exam - General 1994 Ears/Nose/Throat otoscopic exam Overall: external auditory canals clear 09/01/2017 None Full Exam - General 1994 Ears/Nose/Throat otoscopic exam Tympanic membrane: air-fluid level 09/01/2017 None Full Exam - General [...] None Full Exam - General 1994 Eyes conjunctiva/eyelids Overall: conjunctiva clear 08/03/2017 None Full Exam - General 1994 Eyes conjunctiva/eyelids Overall: eyelids normal 08/03/2017 None Full Exam [...] None Full Exam - General 1994 Eyes conjunctiva/eyelids Overall: conjunctiva clear 04/26/2017 None Full Exam - General 1994 Eyes conjunctiva/eyelids Overall: cornea clear 04/26/2017 None Full Exam - General 1994 Eyes conjunctiva/eyelids Overall: eyelids normal 04/26/2017 None Full Exam - General 1994 Eyes pupils and irises Overall: pupils equal, round, reactive to light and accomodation 04/26/2017 None Full Exam - General 1994 Ears/Nose/Throat otoscopic exam Overall: external auditory canals clear 04/26/2017 None Full Exam - General 1994 Ears/Nose/Throat otoscopic exam Tympanic membrane: air-fluid level 04/26/2017 None Full Exam - General 1994 Ears/Nose/Throat otoscopic exam Tympanic membrane: tympanosclerosis 04/26/2017 None Full Exam - General 1994 Ears/Nose/Throat lips/teeth/gingiva Overall: benign lips 04/26/2017 None Full Exam - General 1994 Ears/Nose/Throat lips/teeth/gingiva Overall: normal dentition 04/26/2017 None Full Exam - General 1994 Ears/Nose/Throat oral cavity/pharynx/larynx Overall: oral mucosa clear 04/26/2017 None Full Exam - General 1995 [...] None Full Exam - General 1994 Eyes conjunctiva/eyelids Overall: conjunctiva clear 01/25/2017 None Full Exam - General 1994 Eyes conjunctiva/eyelids Overall: cornea clear 01/25/2017 None Full Exam - General 1994 Eyes conjunctiva/eyelids Overall: eyelids normal 01/25/2017 None Full Exam - General 1994 Eyes pupils and irises Overall: pupils equal, round, reactive to light and accomodation 01/25/2017 None Full Exam - General 1994 Ears/Nose/Throat otoscopic exam Overall: external auditory canals clear 01/25/2017 None Full Exam - General 1994 Ears/Nose/Throat otoscopic exam Tympanic membrane: air-fluid level 01/25/2017 None Full Exam - General [...] None Full Exam - General 1994 Eyes conjunctiva/eyelids Overall: conjunctiva clear 10/26/2016 None Full Exam - General 1994 Eyes conjunctiva/eyelids Overall: cornea clear 10/26/2016 None Full Exam - General 1994 Eyes conjunctiva/eyelids Overall: eyelids normal 10/26/2016 None Full Exam - General 1994 Eyes pupils and irises Overall: pupils equal, round, reactive to light and accomodation 10/26/2016 None Full Exam - General 1994 Ears/Nose/Throat otoscopic exam Overall: external auditory canals clear 10/26/2016 None Full Exam - General 1994 Ears/Nose/Throat otoscopic exam Tympanic membrane: air-fluid level 10/26/2016 None Full Exam - General [...] None Full Exam - General 1994 Eyes conjunctiva/eyelids Overall: conjunctiva clear 09/27/2016 None Full Exam - General 1994 Eyes conjunctiva/eyelids Overall: cornea clear 09/27/2016 None Full Exam - General 1994 Eyes conjunctiva/eyelids Overall: eyelids normal 09/27/2016 None Full Exam - General 1994 Eyes pupils and irises Overall: pupils equal, round, reactive to light and accomodation 09/27/2016 None Full Exam - General 1994 Ears/Nose/Throat otoscopic exam Overall: external auditory canals clear 09/27/2016 None Full Exam - General 1994 Ears/Nose/Throat otoscopic exam Tympanic membrane: air-fluid level 09/27/2016 None Full Exam - General [...] None Full Exam - General 1994 Eyes conjunctiva/eyelids Overall: conjunctiva clear 06/28/2016 None Full Exam - General 1994 Eyes conjunctiva/eyelids Overall: cornea clear 06/28/2016 None Full Exam - General 1994 Eyes conjunctiva/eyelids Overall: eyelids normal 06/28/2016 None Full Exam - General 1994 Eyes pupils and irises Overall: pupils equal, round, reactive to light and accomodation 06/28/2016 None Full Exam - General 1994 Ears/Nose/Throat otoscopic exam Overall: external auditory canals clear 06/28/2016 None Full Exam - General 1994 Ears/Nose/Throat otoscopic exam Tympanic membrane: air-fluid level 06/28/2016 None Full Exam - General [...] None Full Exam - General 1994 Eyes conjunctiva/eyelids Overall: conjunctiva clear 04/27/2016 None Full Exam - General 1994 Eyes conjunctiva/eyelids Overall: cornea clear 04/27/2016 None Full Exam - General 1994 Eyes conjunctiva/eyelids Overall: eyelids normal 04/27/2016 None Full Exam - General 1994 Eyes pupils and irises Overall: pupils equal, round, reactive to light and accomodation 04/27/2016 None Full Exam - General 1994 Ears/Nose/Throat otoscopic exam Overall: external auditory canals clear 04/27/2016 None Full Exam - General 1994 Ears/Nose/Throat otoscopic exam Tympanic membrane: air-fluid level 04/27/2016 None Full Exam - General [...] None Full Exam - General 1994 Eyes conjunctiva/eyelids Overall: conjunctiva clear 02/17/2016 None Full Exam - General 1994 Eyes conjunctiva/eyelids Overall: cornea clear 02/17/2016 None Full Exam - General 1994 Eyes conjunctiva/eyelids Overall: eyelids normal 02/17/2016 None Full Exam [...] None Full Exam - General 1994 Eyes conjunctiva/eyelids Overall: conjunctiva clear 01/20/2016 None Full Exam - General 1994 Eyes conjunctiva/eyelids Overall: cornea clear 01/20/2016 None Full Exam - General 1994 Eyes conjunctiva/eyelids Overall: eyelids normal 01/20/2016 None Full Exam [...] None Full Exam - General 1994 Eyes conjunctiva/eyelids Overall: conjunctiva clear 01/06/2016 None Full Exam - General 1994 Eyes conjunctiva/eyelids Overall: cornea clear 01/06/2016 None Full Exam - General 1994 Eyes conjunctiva/eyelids Overall: eyelids normal 01/06/2016 None Full Exam [...] None Full Exam - General 1994 Eyes conjunctiva/eyelids Overall: conjunctiva clear 12/16/2015 None Full Exam - General 1994 Eyes conjunctiva/eyelids Overall: cornea clear 12/16/2015 None Full Exam - General 1994 Eyes conjunctiva/eyelids Overall: eyelids normal 12/16/2015 None Full Exam [...] None Full Exam - General 1994 Eyes conjunctiva/eyelids Overall: conjunctiva clear 11/27/2015 None Full Exam - General 1994 Eyes conjunctiva/eyelids Overall: cornea clear 11/27/2015 None Full Exam - General 1994 Eyes conjunctiva/eyelids Overall: eyelids normal 11/27/2015 None Full Exam [...] None Full Exam - General 1994 Eyes conjunctiva/eyelids Overall: conjunctiva clear 07/30/2015 None Full Exam - General 1994 Eyes conjunctiva/eyelids Overall: cornea clear 07/30/2015 None Full Exam - General 1994 Eyes conjunctiva/eyelids Overall: eyelids normal 07/30/2015 None Full Exam - General 1994 Eyes pupils and irises Overall: pupils equal, round, reactive to light and accomodation 07/30/2015 None Full Exam - General 1994 Ears/Nose/Throat otoscopic exam Overall: external auditory canals clear 07/30/2015 None Full Exam - General 1994 Ears/Nose/Throat otoscopic exam Tympanic membrane: air-fluid level 07/30/2015 None Full Exam - General [...] None Full Exam - General 1994 Eyes conjunctiva/eyelids Overall: conjunctiva clear 06/09/2015 None Full Exam - General 1994 Eyes conjunctiva/eyelids Overall: cornea clear 06/09/2015 None Full Exam - General 1994 Eyes conjunctiva/eyelids Overall: eyelids normal 06/09/2015 None Full Exam [...] None Full Exam - General 1994 Eyes conjunctiva/eyelids Overall: conjunctiva clear 04/29/2015 None Full Exam - General 1994 Eyes conjunctiva/eyelids Overall: cornea clear 04/29/2015 None Full Exam - General 1994 Eyes conjunctiva/eyelids Overall: eyelids normal 04/29/2015 None Full Exam - General 1994 Eyes pupils and irises Overall: pupils equal, round, reactive to light and accomodation 04/29/2015 None Full Exam - General 1994 Ears/Nose/Throat otoscopic exam Overall: external auditory canals clear 04/29/2015 None Full Exam - General 1994 Ears/Nose/Throat otoscopic exam Tympanic membrane: air-fluid level 04/29/2015 None Full Exam - General [...] None Full Exam - General 1994 Eyes conjunctiva/eyelids Overall: conjunctiva clear 02/19/2015 None Full Exam - General 1994 Eyes conjunctiva/eyelids Overall: cornea clear 02/19/2015 None Full Exam - General 1994 Eyes conjunctiva/eyelids Overall: eyelids normal 02/19/2015 None Full Exam [...] General 1994 Ears/Nose/Throat otoscopic exam Tympanic membrane: air-fluid level 02/19/2015 None Full Exam - General 1994 Ears/Nose/Throat otoscopic exam Tympanic membrane: tympanosclerosis 02/19/2015 None Procedures Procedure Codes Date PPPS, SUBSEQ VISIT CPT- 4: G0439 08/10/2018 ADMIN INFLUENZA VIRUS VAC CPT-4: G0008 07/05/2018 FLU VACC PRSV FREE INC ANTIG Formatting Model/CDA Sections, Assigned to/Sharee Ramirez CPT-4: [id number] 07/05/2018 THER/PROPH/DIAG INJ SC/IM CPT-4: 90870 06/12/2018 TRIAMCINOLONE ACET INJ NOS CPT-4: J3301 06/12/2018 PPPS, SUBSEQ VISIT CPT- 4: G0439 08/03/2017 ADMIN INFLUENZA VIRUS VAC CPT-4: G0008 06/28/2016 FLU VACC PRSV FREE INC ANTIG CPT-4: 81901 06/28/2016 TENIVAC TD VACCINE NO PRSRV 7/> IM CPT-4: 02735 06/28/2016 OCCULT BLOOD FECES CPT- 4: 45861 02/19/2015 Vital Signs Date Vital 03/05/2019 Blood Pressure 1: 128/76 Code: 8480-6 BMI: 28.5 Code: 44390-6 Heart Rate 1: 85 bpm Height: 6' SpO2: 96% Weight: 210 lbs 02/12/2019 Blood Pressure 1: 110/70 Code: 8480-6 BMI: 28.5 Code: 95362-8 Heart Rate 1: 70 bpm Height: 6' SpO2: 93% Weight: 210 lbs 01/29/2019 Blood Pressure 1: 110/78 Code: 8480-6 BMI: 28.5 Code: 35542-7 Heart Rate 1: 98 bpm Height: 6' SpO2: 90% Weight: 210 lbs 2019 Blood Pressure 1: 136/74 Code: 8480-6 BMI: 28.6 Code: 54767-0 Heart Rate 1: 97 bpm Height: 6' SpO2: 94% Weight: 211 lbs 01/08/2019 Blood Pressure 1: 128/86 Code: 8480-6 BMI: 28.6 Code: 20309-3 Heart Rate 1: 96 bpm Height: 6' SpO2: 97% Weight: 211 lbs 12/25/2018 Blood Pressure 1: 112/62 Code: 8480-6 BMI: 28.6 Code: 52823-8 Heart Rate 1: 76 bpm Height: 6' SpO2: 96% Weight: 211 lbs 12/13/2018 Blood Pressure 1: 114/78 Code: 8480-6 BMI: 29.4 Code: 89230-8 Heart Rate 1: 73 bpm Height: 6' SpO2: 93% Weight: 217 lbs 11/27/2018 Blood Pressure 1: 110/70 Code: 8480-6 BMI: 28.5 Code: 75212-5 Heart Rate 1: 90 bpm Height: 6' SpO2: 95% Temperature: 36.8 (C) / 98.2 (F) Weight: 210 lbs 8 oz 09/26/2018 Blood Pressure 1: 130/80 Code: 8480-6 BMI: 29.6 Code: 63353-3 Heart Rate 1: 98 bpm Height: 6' SpO2: 93% Weight: 218 lbs 08/10/2018 BMI: 29.4 Code: 48091-0 Height: 6' Weight: 217 lbs 07/26/2018 Blood Pressure 1: 116/72 Code: 8480-6 BMI: 29.4 Code: 91050-7 Heart Rate 1: 102 bpm Height: 6' SpO2: 96% Weight: 217 lbs 07/05/2018 Blood Pressure 1: 132/72 Code: 8480-6 Heart Rate 1: 60 bpm SpO2: 95% 06/12/2018 Blood Pressure 1: 120/78 Code: 8480-6 BMI: 29.6 Code: 15403-5 Heart Rate 1: 103 bpm Height: 6' SpO2: 96% Weight: 218 lbs 05/10/2018 Blood Pressure 1: 114/68 Code: 8480-6 BMI: 29.4 Code: 14957-1 Heart Rate 1: 92 bpm Height: 6' SpO2: 97% Weight: 217 lbs 03/27/2018 Blood Pressure 1: 126/74 Code: 8480-6 BMI: 30.1 Code: 09644-3 Heart Rate 1: 103 bpm Height: 6' SpO2: 96% Weight: 222 lbs 01/25/2018 Blood Pressure 1: 122/70 Code: 8480-6 Blood Pressure 2: 126/73 Code: 8480-6 Heart Rate 1: 63 bpm SpO2: 94% 01/24/2018 Blood Pressure 1: 110/72 Code: 8480-6 BMI: 29.7 Code: 91733-5 Heart Rate 1: 88 bpm Height: 6' SpO2: 95% Weight: 219 lbs 12/08/2017 Blood Pressure 1: 120/68 Code: 8480-6 BMI: 30.0 Code: 84188-1 Heart Rate 1: 91 bpm Height: 6' SpO2: 96% Temperature: 36.7 (C) / 98.1 (F) Weight: 221 lbs 10/27/2017 Blood Pressure 1: 124/76 Code: 8480-6 BMI: 30.1 Code: 65750-9 Heart Rate 1: 69 bpm Height: 6' SpO2: 95% Weight: 222 lbs 09/29/2017 Blood Pressure 1: 118/66 Code: 8480-6 BMI: 29.9 Code: 10750-0 Heart Rate 1: 81 bpm Height: 6' SpO2: 95% Weight: 220 lbs 8 oz 09/01/2017 Blood Pressure 1: 122/82 Code: 8480-6 BMI: 29.6 Code: 39625-1 Heart Rate 1: 75 bpm Height: 6' SpO2: 97% Weight: 218 lbs 08/03/2017 Blood Pressure 1: 120/68 Code: 8480-6 Heart Rate 1: 68 bpm Height: 6' SpO2: 94% Waist Measure (cm): 97 cm 04/26/2017 Blood Pressure 1: 122/72 Code: 8480-6 BMI: 29.4 Code: 94059-8 Heart Rate 1: 85 bpm Height: 6' SpO2: 92% Weight: 217 lbs 01/25/2017 Blood Pressure 1: 118/78 Code: 8480-6 BMI: 29.4 Code: 75595-4 Heart Rate 1: 72 bpm Height: 6' SpO2: 94% Temperature: 36.9 (C) / 98.5 (F) Weight: 217 lbs 10/26/2016 Blood Pressure 1: 152/86 Code: 8480-6 BMI: 29.7 Code: 83480-0 Heart Rate 1: 58 bpm Height: 6' Weight: 219 lbs 09/27/2016 Blood Pressure 1: 138/80 Code: 8480-6 BMI: 29.4 Code: 70691-0 Heart Rate 1: 52 bpm Height: 6' SpO2: 98% Weight: 217 lbs 06/28/2016 Blood Pressure 1: 128/86 Code: 8480-6 BMI: 29.6 Code: 68201-9 Heart Rate 1: 69 bpm Height: 6' SpO2: 93% Weight: 218 lbs 04/27/2016 Blood Pressure 1: 118/82 Code: 8480-6 BMI: 29.3 Code: 36127-3 Heart Rate 1: 85 bpm Height: 6' SpO2: 98% Weight: 216 lbs 02/17/2016 Blood Pressure 1: 132/80 Code: 8480-6 BMI: 28.8 Code: 98576-2 Heart Rate 1: 94 bpm Height: 6' SpO2: 98% Weight: 212 lbs 01/20/2016 Blood Pressure 1: 120/70 Code: 8480-6 BMI: 29.7 Code: 94952-9 Heart Rate 1: 87 bpm Height: 6' SpO2: 92% Weight: 219 lbs 01/06/2016 Blood Pressure 1: 122/88 Code: 8480-6 BMI: 28.8 Code: 86707-5 Heart Rate 1: 83 bpm Height: 6' SpO2: 97% Weight: 212 lbs 12/16/2015 Blood Pressure 1: 98/62 Code: 8480-6 Heart Rate 1: 62 bpm Height: 6' SpO2: 90% Weight: 11/27/2015 Blood Pressure 1: 90/64 Code: 8480-6 Blood Pressure 1: 110/80 Code: 8480-6 Heart Rate 1: 91 bpm Height: 6' SpO2: 92% Weight: 07/30/2015 Blood Pressure 1: 112/82 Code: 8480-6 BMI: 30.5 Code: 11734-3 Heart Rate 1: 82 bpm Height: 6' SpO2: 92% Weight: 225 lbs 06/09/2015 Blood Pressure 1: 130/76 Code: 8480-6 BMI: 31.1 Code: 49404-5 Heart Rate 1: 65 bpm Height: 6' SpO2: 96% Weight: 229 lbs 04/29/2015 Blood Pressure 1: 118/78 Code: 8480-6 BMI: 30.7 Code: 26145-3 Heart Rate 1: 70 bpm Height: 6' Weight: 226 lbs 02/19/2015 Blood Pressure 1: 118/70 Code: 8480-6 BMI: 29.7 Code: 88591-2 Heart Rate 1: 68 bpm Height: 6' Weight: 219 lbs Functional Status No Functional Status data History of Present Illness Symptom Name Status Result Effective Date Notes Onset and Resolution ongoing 03/05/2019 None Onset of Symptom months ago 03/05/2019 None Frequency of Episodes increasing 03/05/2019 None Triggers no known associated factors 03/05/2019 None Quality worsening 03/05/2019 None Onset and Resolution ongoing 03/05/2019 None Onset of Symptom during adulthood 03/05/2019 None _ cardiac disease 02/12/2019 None Onset of Symptom 1 weeks ago 02/12/2019 None Pertinent Findings Denies pain 02/12/2019 None Quality acute illness 02/12/2019 None Location N/V/D 02/12/2019 None Onset and Resolution resolved 02/12/2019 None Severity moderate 02/12/2019 None Significant Medical Conditions acute illness 02/12/2019 None Mechanism of injury unknown 02/12/2019 None Alleviating Factors medication 02/12/2019 None Alleviating Factors rest 02/12/2019 None Onset and Resolution ongoing 01/29/2019 None Onset of Symptom months ago 01/29/2019 None Triggers no known associated factors 01/29/2019 None Frequency of Episodes increasing 01/29/2019 None Quality worsening 01/29/2019 None Quality unsteady 01/29/2019 None Onset and Resolution ongoing 01/29/2019 None Assistive devices cane 01/29/2019 None Location on the left 2019 None Quality aching 2019 None Quality intermittent 2019 None Quality dull 2019 None Onset and Resolution sudden in onset 2019 None Onset of Symptom 2 days ago 2019 None Limitation on Activities Denies moderately limits activities 01/08/2019 None Onset of Symptom months ago 01/08/2019 None Triggers no known associated factors 01/08/2019 None Exacerbating Factors activity 01/08/2019 None Onset and Resolution ongoing 01/08/2019 None Location in both nares 01/08/2019 None Onset and Resolution ongoing 01/08/2019 None Onset of Symptom during adulthood 01/08/2019 None Severity mild 01/08/2019 None Frequency of Episodes increasing 01/08/2019 None Significant Medical Conditions allergic rhinitis 01/08/2019 None Significant Medications antihistamines 01/08/2019 None Triggers no known associated factors 01/08/2019 None Pertinent Findings Denies cough 01/08/2019 None Pertinent Findings Denies fever 01/08/2019 None Onset and Resolution ongoing 12/25/2018 None Onset of Symptom months ago 12/25/2018 None Limitation on Activities Denies moderately limits activities 12/25/2018 None Triggers no known associated factors 12/25/2018 None Exacerbating Factors activity 12/25/2018 None Onset and Resolution ongoing 12/25/2018 None Onset of Symptom months ago 12/25/2018 None Triggers no known associated factors 12/25/2018 None Quality Denies intermittent 12/25/2018 None Triggers no known associated factors 12/13/2018 [...] Location lumbar-sacral spine 09/26/2018 None Quality constant 09/26/2018 None Onset and Resolution Denies sudden in [...] Annual Medicare Wellness Exam Blood Pressure (self reported) borderline (120/80 - 139/89) 08/10/2018 None Annual Medicare Wellness Exam Cholesterol (self reported) desireable (below 200) 08/10/2018 None Annual Medicare Wellness Exam Handling Stress often has problems coping 08/10/2018 sometimes Annual Medicare Wellness Exam Hemaglobin A-1C (self reported) never checked 08/10/2018 None Annual Medicare Wellness [...] / high fat foods per day: 1-2 08/10/2018 None Annual Medicare Wellness Exam Stress most [...] Annual Medicare Wellness Exam Blood Pressure (self reported) low / normal (120/80) 08/03/2017 None Annual [...] Annual Medicare Wellness Exam Hemaglobin A-1C (self reported) don't know 08/03/2017 None Annual [...] with someone who has been drinking: n 08/03/2017 None Annual Medicare Wellness Exam Nutrition servings of fried food / high fat foods per day: 2 08/03/2017 None Annual Medicare [...] data Encounters Encounter Performer Location Codes Date [id number]) [id number] EST. PATIENT, LEVEL IV Diagnosis: Essential (primary) hypertension[ICD10: I10] Diagnosis: Unsteadiness on feet[ICD10: R26.81] Diagnosis: Abdominal aortic aneurysm, without rupture[ICD10: I71.4] Lesley Butcher MD, [facility] CPT-4: 76356 03/05/2019 [id number]) 61875 EST. PATIENT, LEVEL IV Diagnosis: Paroxysmal atrial fibrillation[ICD10: I48.0] Diagnosis: Essential (primary) hypertension[ICD10: I10] Diagnosis: Frequency of micturition[ICD10: R35.0] Merline Butcher MD, [facility] CPT-4: 58727 02/12/2019 [id number]) 73429 EST. PATIENT, LEVEL V Diagnosis: Essential (primary) hypertension[ICD10: I10] Diagnosis: Dizziness and giddiness[ICD10: R42] Diagnosis: Vertigo of central origin, right ear[ICD10: H81.41] Lesley Butcher MD, [facility] CPT-4: 59053 01/29/2019 84910 EST. PATIENT, LEVEL III Diagnosis: Pleurodynia[ICD10: R07.81] [facility] CPT-4: 56133 2019 69583 54670 EST. PATIENT, LEVEL III Diagnosis: Other allergic rhinitis[ICD10: J30.89] [facility] CPT-4: 71756 01/08/2019 56913 EST. PATIENT, LEVEL IV Diagnosis: Other fatigue[ICD10: R53.83] Diagnosis: Obstructive sleep apnea (adult) (pediatric)[ICD10: G47.33] Diagnosis: Other malaise[ICD10: R53.81] Mady Butcher MD, [facility] CPT-4: 41748 12/25/2018 ([id number]) 96845 EST. PATIENT, LEVEL IV Diagnosis: Shortness of breath[ICD10: R06.02] Diagnosis: Other fatigue[ICD10: R53.83] Diagnosis: Obstructive sleep apnea (adult) (pediatric)[ICD10: G47.33] Diagnosis: Other malaise[ICD10: R53.81] Lesley Butcher MD, [facility] CPT-4: 94264 12/13/2018 ([id number]) 42053 EST. PATIENT, LEVEL IV Diagnosis: Shortness of breath[ICD10: R06.02] Diagnosis: Dizziness and giddiness[ICD10: R42] Diagnosis: Other fatigue[ICD10: R53.83] Diagnosis: Essential (primary) hypertension[ICD10: I10] Diagnosis: Muscle weakness (generalized)[ICD10: M62.81] Merline Butcher MD, [facility] CPT-4: 20017 11/27/2018 ([id number]) 64132 EST. PATIENT, LEVEL IV Diagnosis: Essential (primary) hypertension[ICD10: I10] Diagnosis: Vertigo of central origin, right ear[ICD10: H81.41] Diagnosis: Low back pain[ICD10: M54.5] Lesley Butcher MD, [facility] CPT-4: 73985 09/26/2018 ([id number]) 06734 EST. PATIENT, LEVEL III Diagnosis: Dizziness and giddiness[ICD10: R42] Diagnosis: Vertigo of central origin, right ear[ICD10: H81.41] Diagnosis: Essential (primary) hypertension[ICD10: I10] Lesley Butcher MD, [facility] CPT-4: 06044 07/26/2018 ([id number]) 83672 EST. PATIENT, LEVEL III Diagnosis: Essential (primary) hypertension[ICD10: I10] Lesley Butcher MD, [facility] CPT-4: 50404 06/12/2018 ([id number]) 16920 EST. PATIENT, LEVEL IV Diagnosis: Other iron deficiency anemias[ICD10: D50.8] Diagnosis: Weakness[ICD10: R53.1] Diagnosis: Diverticulosis of large intestine without perforation or abscess with bleeding[ICD10: K57.31] Lesley Butcher MD, [facility] CPT-4: 03935 05/10/2018 ([id number]) 92319 EST. PATIENT, LEVEL IV Diagnosis: Essential (primary) hypertension[ICD10: I10] Diagnosis: Major depressive disorder, recurrent, mild[ICD10: F33.0] Diagnosis: Sensorineural hearing loss, bilateral[ICD10: H90.3] Lesley Butcher MD, [facility] CPT-4: 13673 03/27/2018 ([id number]) Miscellaneous no charge Diagnosis: Essential (primary) hypertension[ICD10: I10] Mady Butcher MD, [facility] CPT-4: 07765 01/25/2018 ([id number]) 10204 EST. PATIENT, LEVEL IV Diagnosis: Essential (primary) hypertension[ICD10: I10] Diagnosis: Sensorineural hearing loss, bilateral[ICD10: H90.3] Diagnosis: Mixed hyperlipidemia[ICD10: E78.2] Diagnosis: Major depressive disorder, recurrent, mild[ICD10: F33.0] Lesley Butcher MD, [facility] CPT-4: 55794 01/24/2018 24727 EST. PATIENT, LEVEL IV Diagnosis: Other malaise[ICD10: R53.81] Diagnosis: Fever, unspecified[ICD10: R50.9] Mady Butcher MD, [facility] CPT-4: 45616 12/08/2017 ([id number]) 07993 EST. PATIENT, LEVEL III Diagnosis: Essential (primary) hypertension[ICD10: I10] Lesley Butcher MD, [facility] CPT-4: 27478 10/27/2017 ([id number]) 15307 EST. PATIENT, LEVEL III Diagnosis: Benign prostatic hyperplasia with lower urinary tract symptoms[ICD10: N40.1] Diagnosis: Dysphagia, pharyngeal phase[ICD10: R13.13] Lesley Butcher MD, [facility] CPT-4: 69344 09/29/2017 ([id number]) 41042 EST. PATIENT, LEVEL IV Diagnosis: Essential (primary) hypertension[ICD10: I10] Diagnosis: Major depressive disorder, recurrent, mild[ICD10: F33.0] Diagnosis: Sensorineural hearing loss, bilateral[ICD10: H90.3] Lesley Butcher MD, [facility] CPT-4: 27187 09/01/2017 ([id number]) 79774 EST. PATIENT, LEVEL IV Diagnosis: Essential (primary) hypertension[ICD10: I10] Diagnosis: Major depressive disorder, recurrent, mild[ICD10: F33.0] Diagnosis: Mixed hyperlipidemia[ICD10: E78.2] Lesley Butcher MD, [facility] CPT- 4: 16211 04/26/2017 ([id number]) 60640 EST. PATIENT, LEVEL IV Diagnosis: Essential (primary) hypertension[ICD10: I10] Diagnosis: Major depressive disorder, recurrent, mild[ICD10: F33.0] Diagnosis: Urge incontinence[ICD10: N39.41] Lesley Butcher MD, [facility] CPT-4: 47313 01/25/2017 ([id number]) 92134 EST. PATIENT, LEVEL IV Diagnosis: Essential (primary) hypertension[ICD10: I10] Diagnosis: Major depressive disorder, recurrent, mild[ICD10: F33.0] Diagnosis: Urge incontinence[ICD10: N39.41] Lesley Butcher MD, [facility] CPT-4: 26782 10/26/2016 ([id number]) 64594 EST. PATIENT, LEVEL III Diagnosis: Essential (primary) hypertension[ICD10: I10] Diagnosis: Major depressive disorder, recurrent, mild[ICD10: F33.0] Diagnosis: Urge incontinence[ICD10: N39.41] Lesley Butcher MD, [facility] CPT-4: 30707 09/27/2016 ([id number]) 28374 EST. PATIENT, LEVEL IV Diagnosis: Essential (primary) hypertension[ICD10: I10] Diagnosis: Encounter for immunization[ICD10: Z23] Diagnosis: Laceration without foreign body of left forearm, initial encounter[ICD10: S51.812A] Diagnosis: Laceration without foreign body of right forearm, initial encounter[ICD10: S51.811A] Diagnosis: Major depressive disorder, recurrent, mild[ICD10: F33.0] Lesley Butcher MD, [facility] CPT-4: 85322 06/28/2016 ([id number]) 44120 EST. 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 PATIENT, LEVEL IV Diagnosis: Weakness[ICD10: R53.1] Diagnosis: Gout, unspecified[ICD10: M10.9] Diagnosis: Hypotension, unspecified[ICD10: I95.9] Lesley Butcher MD, [facility] CPT-4: 43506 12/16/2015 ([id number]) Patient admitted to the hospital from clinic (NO CHARGE) Diagnosis: Hypoxemia[ICD10: R09.02] Diagnosis: Weakness[ICD10: R53.1] Diagnosis: Dyspnea, unspecified[ICD10: R06.00] Mady Butcher MD, [facility] CPT- 4: 30168R 11/27/2015 ([id number]) 76777 EST. PATIENT, LEVEL III Diagnosis: Essential (primary) hypertension[ICD10: I10] Diagnosis: Gastro-esophageal reflux disease without esophagitis[ICD10: K21.9] Lesley Butcher MD, [facility] CPT-4: 90007 07/30/2015 ([id number]) 41735 EST. PATIENT, LEVEL III Diagnosis: ESSENTIAL HYPERTENSION[ICD9: 401.9] Merline Milton Butcher MD, [facility] CPT-4: 93803 06/09/2015 ([id number]) 38279 EST. PATIENT, LEVEL III Diagnosis: ESSENTIAL HYPERTENSION[ICD9: 401.9] Lesley Butcher MD, [facility] CPT- 4: 01056 04/29/2015 ([id number]) OFFICE/OUTPATIENT VISIT NEW Diagnosis: ESSENTIAL HYPERTENSION[ICD9: 401.9] Diagnosis: DEPRESSIVE DISORDER NEC[ICD9: 311] Diagnosis: Enlarged prostate[ICD9: 600.00] Diagnosis: Nasal inflammation due to allergen[ICD9: 477.9] Lesley Butcher MD, [facility] CPT-4: 01805 02/19/2015 Plan of Care Planned Activity Notes Codes Status Date Visit Plan: Back weakness/pain, unsteadiness on feet - I have recommended a script for therapy for pinamonti strengthening, balance, back exercises Abdominal aortic aneurysm - will need CT angio of abdominal aorta Hypertension - well controlled - continue with current medications, continue with no added salt diet. Pt has been encouraged to exercise daily. The pt has been advised to call the office if there are any acute concerns about change in blood pressure readings at home. I spent 45 minutes with the patient and his family in direct contact and discussion. 03/05/2019 Appointment: Lesley Butcher WPtel: [address] [place], [place] [phone] (15 min) Moderate 03/05/2019 Patient Education: Patient Medication Summary Completed 03/05/2019 Visit Plan: Afib-new diagnosis with cardiology -Dr Deleon -now on coumadin-will return to [place] in 2 weeks to discuss watchman device NCY-myjinapshm-vk changes Urinary frequency and urgency -check UA -patient unable to void at appt -will bring back sample 02/12/2019 Appointment: Merline Rose tel: [address] [place], [place] [phone] (30 min) Complex 02/12/2019 Patient Education: Patient Medication Summary Completed 02/12/2019 Visit Plan: Hypertension - well controlled - continue with current medications, continue with no added salt diet. Pt has been encouraged to exercise daily. The pt has been advised to call the office if there are any acute concerns about change in blood pressure readings at home. Dizziness/BPPV - discussed with patient and his family - will have patient see Allan Ingram for continued vertigo therapy - he has not been doing the exercises or his therapy sessions. He did feel a little bit better when doing the therapy - but he stopped because he was doing other therapies and did not have time for all of the therapy sessions. 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 They have a potential appt pending. 01/29/2019 Visit Plan: Hypertension - well controlled - continue with current medications, continue with no added salt diet. Pt has been encouraged to exercise daily. The pt has been advised to call the office if there are any acute concerns about change in blood pressure readings at home. Dizziness/BPPV - discussed with patient and his family - will have patient see Allan Ingram for continued vertigo therapy - he has not been doing the exercises or his therapy sessions. He did feel a little bit better when doing the therapy - but he stopped because he was doing other therapies and did not have time for all of the therapy sessions. 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 They have a potential appt pending. I spent 45 minutes with the patient and his family in direct contact and discussion. 01/29/2019 Appointment: Lesley Butcherl: [phone] [facility] (30 min) Complex 01/29/2019 Patient Education: Patient Medication Summary Completed 01/29/2019 Visit Plan: Left rib pain - x-ray pending - The pt is to use prn antiinflammatories to manage acute pain. The patient is to call the office if the pain is worsening or does not improve. 2019 Appointment: Mady Dunne WPtel: [phone] [phone] (30 min) Complex 2019 Patient Education: Patient Medication Summary Completed 2019 Visit Plan: Allergies - chronic - recommended pt to [...] spray in the nasal steroid allergy spray. 01/08/2019 Appointment: Merline Rose WPtel: [phone] [phone] [place] (30 min) Complex 01/08/2019 Patient Education: Patient Medication Summary Completed 01/08/2019 Visit Plan: Fatigue, shortness of breath, dizziness - pt is to continue PT, pt is to follow up with Dr. Panda and Dr. Harvey and is to notify clinic with any changes in the current treatment plan. 12/25/2018 Appointment: Mady Dunne WPtel: [phone] [phone] (15 min) Moderate 12/25/2018 Patient Education: Patient Medication Summary Completed 12/25/2018 Visit Plan: Shortness of breath - Hx [...] to 105, oxygen stayed at 96% 12/13/2018 Appointment: Lesley Butcher WPtel: [phone] [facility] (15 min) Moderate 12/13/2018 Patient Education: Patient Medication Summary Completed 12/13/2018 Visit Plan: BYX-fldunsc-jcypnzwmi of breath -patient reports worsening of chronic symptoms -will check EKG and cardiac enzymes to evaluate for acute changes -recommend patient follow up with his waste picker, Dr Sharyn vu -patient, and daughter verbalized understanding of plan. Generalized weakness-discussed PT referral after cleared by cardiology -patient's will call us when she wants to have it set up HTN-no change but monitor at home 11/27/2018 Appointment: Merline Rose WPtel: [phone] [phone] [place] (15 min) Moderate 11/27/2018 Patient Education: Patient [...] cryotherapy sessions. 09/26/2018 Appointment: Lesley Butcher WPtel: [phone] [facility] [place] (15 min) Moderate 09/26/2018 Patient Education: Patient [...] surrogate. 08/10/2018 Appointment: Mady Dunne WPtel: [phone] [facility] [facility] - Annual Wellness Visit 08/10/2018 Patient Education: Patient Medication Summary Completed 08/10/2018 Visit Plan: Vertigo - vestibular/cochlearVestibular therapy with Allan Ingram. Hypertension - well controlled - continue with current medications, continue with no added salt diet. Pt has been encouraged to exercis e daily. The pt has been advised to call the office if there are any acute concerns about change in blood pressure readings at home. 07/26/2018 Appointment: Lesley Butcher WPtel: [facility] (15 min) Moderate 07/26/2018 Patient Education: Patient [...] his dexamethasone. 06/12/2018 Appointment: Lesley Butcher WPtel: [phone] [facility] (15 min) Moderate 06/12/2018 Patient Education: Patient Medication Summary Completed 06/12/2018 Visit Plan: Diverticulosis with recent GI bleeding - improved - continue with supportive care, avoid foods which cause any abdominal pain - monitor symptoms - call if any pain or bleeding recurs. Anemia - check labs today. Weakness - continue with increasing of activity. 05/10/2018 Appointment: Lesley Butcher WPtel: [phone] [facility] (30 min) Complex 05/10/2018 Patient Education: [...] implant. 03/27/2018 Appointment: Lesley Butcher WPtel: [phone] [facility] (15 min) Moderate 03/27/2018 Patient Education: [...] to medications. 01/24/2018 Appointment: [facility] (15 min) Moderate 01/24/2018 Patient Education: Patient Medication Summary Completed 01/24/2018 Visit Plan: Influenza - pt started on tamiflu - pt to start on anti-inflammatories, tylenol and monitor symptoms. Pt to call if not improving. Pt to alert any close contacts as to illness. 12/08/2017 Appointment: Mady Dunne WPtel: [facility] (30 min) Complex 12/08/2017 Patient Education: Patient Medication Summary Completed 12/08/2017 Visit Plan: Hypertension - well controlled - continue with current medications, continue with no added salt diet. Pt has been encouraged to exercise daily. The pt has been advised to call the office if there are any acute concerns about change in blood pressure readings at home. 10/27/2017 Appointment: Lesley Butcher WPtel: [facility] (15 min) Moderate 10/27/2017 Patient Education: Patient Medication Summary Completed 10/27/2017 Referral: External, Ordering Provider Referral Initiated 10/12/2017 Visit Plan: BPH - continue with dutasteride and flomax Dysphagia - referral to Dr. Kumar for EGD - question stricture - dysphagia intermittently - hx of stricture. 09/29/2017 Appointment: Lesley Butcher WPtel: [facility] (15 min) Moderate 09/29/2017 Patient Education: Patient Medication Summary Completed 09/29/2017 Care Plan: Referral Order SNOMED-CT : [id number] Pending 09/29/2017 Visit Plan: Hypertension - well [...] recommended patient to have an evaluation at [facility] to see if he has potential for cochlear implant. 09/01/2017 Appointment: [facility] [phone] [facility] (15 min) Moderate 09/01/2017 Patient Education: Patient Medication Summary Completed 09/01/2017 Care Plan: Referral Order SNOMED-CT : [id number] Pending 09/01/2017 Visit Plan: Medicare Exam - [...] care surrogate. 08/03/2017 [facility]ment[phone] [facility] Welcome [facility] visit [...] current medications. 04/26/2017 Appointment: Lesley Butcher WPtel: [phone] [facility] (15 min) Moderate 04/26/2017 Patient Education: [...] 10mg daily. 01/25/2017 Appointment: Lesley Butcher WPtel: [phone] [facility] (30 min) Complex 01/25/2017 Patient Education: Patient [...] detrol [place] 10/26/2016 Appointment: Lesley Butcher WPtel: [facility] (15 min) Moderate 10/26/2016 Patient Education: [...] retention occur. 09/27/2016 Appointment: [phone] [facility] (15 min) Moderate 09/27/2016 Patient Education: [...] shelli andrea 06/28/2016 Appointment: [facility] [phone] [facility] (15 min) Moderate 06/28/2016 Patient Education: [...] and plan. 02/17/2016 Appointment: Merline Rose WPtel: [address] [place], [place] [phone] (30 min) [facility] 02/17/2016 Patient Education: Patient Medication Summary Completed [...] Summary Completed 12/16/2015 Appointment: Lesley Butcher WPtel[facility] (15 min) Moderate 12/04/2015 Appointment: Lesley Butcher WPtel: [facility] (15 min) Moderate 12/02/2015 Visit Plan: [...] PHARMACY 07/30/2015 Appointment: Les[facility] But[facility]Ptel[facility] [phone] [facility] (15 min) Moderate 07/30/2015 Patient Education: Patient [...] at home. 04/29/2015 Appointment: Les[facility] But[facility]el[facility] [phone] [facility] (15 min) Moderate 04/29/2015 Patient Education: [...] External, Ordering Provider Referral Appointment Requested Referral: [facility] 09/12 Referral info faxed Appointment Requested Referral: [facility] Referral Appointment Requested Instructions Comment . Gout [...] does not want medication at this time. CHECK UA TODAY . Afib-new diagnosis with cardiology -Dr Deleon -now on coumadin-will return to [place] in 2 weeks to discuss watchman device ITM-afvodmhxzu-xf changes Urinary frequency and urgency -check UA -patient unable to void at appt -will bring back sample . Hypertension - well controlled - continue [...] any close contacts as to illness. . Back weakness/pain, unsteadiness on feet - I have recommended a script for therapy for pinamonti strengthening, balance, back exercises Abdominal aortic aneurysm - will need CT angio of abdominal aorta Hypertension - well controlled - continue with current medications, continue with no added salt diet. Pt has been encouraged to exercise daily. The pt has been advised to call the office if there are any acute concerns about change in blood pressure readings at home. I spent 45 minutes with the patient and his family in direct contact and discussion. CHECK CARDIAC ENYZMES AND EKG . RNI-xeqvqlw-uicyneadl of breath -patient reports worsening of chronic symptoms -will check EKG and cardiac enzymes to evaluate for acute changes -recommend patient follow up with his waste picker, Dr Stokes -patient, and daughter verbalized understanding of plan. Generalized weakness-discussed PT referral after cleared by cardiology - patient's will call us when she wants to have it set up HTN-no change but monitor at home RACHEL [employer] DAILY FOR ALLERGIES . Allergies - chronic - recommended pt to [...] planned injection in back and call the environmental engineering assistant about a biopsy of the lesion on [...] loss - improved with cochlear implant. . Hypertension - well controlled - continue with current medications, continue with no added salt diet. Pt has been encouraged to exercise daily. The pt has been advised to call the office if there are any acute concerns about change in blood pressure readings at home. Dizziness/BPPV - discussed with patient and his family - will have patient see Allan Ingram for continued vertigo therapy - he has not been doing the exercises or his therapy sessions. He did feel a little bit better when doing the therapy - but he stopped because he was doing other therapies and did not have time for all of the therapy sessions. 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 They have a potential appt pending. . Hypertension - well controlled - continue with current medications, continue with no added salt diet. Pt has been encouraged to exercise daily. The pt has been advised to call the office if there are any acute concerns about change in blood pressure readings at home. Dizziness/BPPV - discussed with patient and his family - will have patient see Allan Ingram for continued vertigo therapy - he has not been doing the exercises or his therapy sessions. He did feel a little bit better when doing the therapy - but he stopped because he was doing other therapies and did not have time for all of the therapy sessions. 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 They have a potential appt pending. I spent 45 minutes with the patient and his family in direct contact and discussion. CHECK FASTING LABS DEXAMETHASONE 0.5MG-TAKE A FULL [...] recommended patient to have an evaluation at [facility] to see if he has potential for [...] Notify clinic with any questions or concerns. Use Incentive spirometer for 10 deep breaths an hour while awake to help prevent pneumonia use joe wrap to the ribs as needed for pain stop lipitor x 2 weeks to see if your symptoms improve restart requip for restless legs Will call to Dr. Panda's office to see if they have the sleep study report. . Left rib pain - x-ray pending - The pt is to use prn antiinflammatories to manage acute pain. The patient is to call the office if the pain is worsening or does not improve. . Shortness of breath - Hx of sleep apnea - will need to get pt an overnight oxygen study - we will call [facility] to set him up for an overnight [...] to 105, oxygen stayed at 96% . Fatigue, shortness of breath, dizziness - pt is to continue PT, pt is to follow up with Dr. Panda and Dr. Harvey and is to notify clinic with any changes in the current treatment plan. increase oxybutynin to 10mg daily. . [...]
--- OUTSIDE RECORDS SUMMARY | 2019-03-23 19:11 | XMS REPORT | CCD ---
Author Author [facility] Organization [facility] Address [address] [place] [address] Phone Care Team Providers Care Interface Analyst Name Role Phone PP Unavailable CCM Unavailable Summary Purpose Interface Exchange Insurance Providers Payer name Policy type / Coverage type Covered republican ID Effective Begin Date Effective End Date WPS Medicare Part B Medicare Part B [id number] Unknown Unknown [facility] Medicare Part B [id number] Unknown Unknown Family history Father Diagnosis Age At Onset Hypertension Unknown Coronary Artery Disease Unknown Mother Diagnosis Age At Onset Coronary Artery Disease Unknown Hypertension Unknown Social History Social History Element Codes Description Effective Dates Marital status Unknown 02/19/2015 Number of children Unknown 2 02/19/2015 Employment Unknown Retired 02/19/[address]: 817702484 Has never smoked or chewed tobacco 02/19/2015 Alcohol history Unknown occasionally drinks alcohol 02/19/2015 Allergies, Adverse Reactions, Alerts Allergies, Adverse Reactions, Alerts data not found Past Medical History Illness Codes Condition Status Onset Date Resolved Date Essential (primary) hypertension ICD-9: 401.1 ICD-10: I10 Active 06/27/2016 Unknown Major depressive disorder, recurrent, 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 ICD-10: F33.0 Active 06/27/2016 Unknown Mixed hyperlipidemia ICD- 9: 272.2 ICD-10: E78.2 Active 02/16/2016 Unknown Urge incontinence ICD-9: 788.31 ICD-10: N39.41 Active 09/27/2016 Unknown Benign prostatic hyperplasia without lower urinary tract symptoms ICD-9: 600.00 ICD-10: N40.0 Active 01/03/2017 Unknown Essential (primary) hypertension ICD-9: 401.9 ICD-10: [...] ICD-10: D50.8 Active 04/26/2016 Unknown Localized edema ICD-9: 782.3 ICD-10: R60.0 Active 01/19/2016 Unknown Major depressive disorder, single episode, unspecified ICD-9: 311 ICD-10: F32.9 Active 01/19/2016 Unknown Gout, unspecified ICD-9: 274.9 ICD-10: M10.9 Active 12/15/2015 Unknown Hypotension, unspecified ICD-9: 458.9 ICD-10: I95.9 Active 12/15/2015 Unknown Weakness ICD-9: 780.79 ICD-10: R53.1 Active 12/15/2015 Unknown Dyspnea, unspecified ICD- 9: 786.09 ICD-10: R06.00 Active 11/26/2015 Unknown Hypoxemia [...] 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 ICD-10: F33.0 06/27/2016 Active Mixed hyperlipidemia ICD- 9: 272.2 ICD-10: E78.2 02/16/2016 Active Urge incontinence ICD-9: 788.31 ICD-10: N39.41 09/27/2016 Active Benign prostatic hyperplasia without lower urinary tract symptoms ICD-9: 600.00 ICD-10: N40.0 01/03/2017 Active Essential (primary) hypertension ICD-9: 401.9 ICD-10: [...] 280.1 ICD-10: D50.8 04/26/2016 Active Localized edema ICD-9: 782.3 ICD-10: R60.0 01/19/2016 Active Major depressive disorder, single episode, unspecified ICD-9: 311 ICD-10: F32.9 01/19/2016 Active Gout, unspecified ICD-9: 274.9 ICD-10: M10.9 12/15/2015 Active Hypotension, unspecified ICD-9: 458.9 ICD-10: I95.9 12/15/2015 Active Weakness ICD-9: 780.79 ICD-10: R53.1 12/15/2015 Active Dyspnea, unspecified ICD- 9: 786.09 ICD-10: R06.00 11/26/2015 Active Hypoxemia ICD-9: [...] Start Date Stop Date Status Fill Instructions oxybutynin chloride ER 10 mg tablet,extended release 24 hr RxNorm: 707674 1 Tablet(s) PO daily 04/29/2017 10/25/2017 Active dexamethasone 0.5 mg tablet RxNorm: 757347 TAKE ONE TABLET BY MOUTH ONCE DAILY 02/14/2017 04/14/2017 Inactive Flomax 0.4 mg capsule RxNorm: 756954 TAKE ONE CAPSULE BY MOUTH ONCE DAILY IN THE EVENING 02/14/2017 11/10/2017 Active pantoprazole 40 mg tablet,delayed release RxNorm: 170535 TAKE ONE TABLET BY MOUTH ONCE DAILY AT BEDTIME 02/14/2017 11/10/2017 Active oxybutynin chloride ER 10 mg tablet,extended release 24 hr RxNorm: 839356 1 Tablet(s) PO daily 01/25/2017 04/24/2017 Inactive dexamethasone 0.5 mg tablet RxNorm: 692210 TAKE ONE TABLET BY MOUTH ONCE DAILY 11/10/2016 12/09/2016 Inactive oxybutynin chloride ER 5 mg tablet,extended release 24 hr RxNorm: 685658 1 Tablet(s) PO daily 10/28/2016 10/27/2016 Inactive oxybutynin chloride ER 5 mg tablet,extended release 24 hr RxNorm: 709504 1 Tablet(s) PO daily 10/28/2016 01/24/2017 Inactive Detrol LA 2 mg capsule,extended release RxNorm: 285599 1 Capsule(s) PO QPM 10/26/2016 10/27/2016 Inactive clonazepam 1 mg tablet RxNorm: 039912 1 Tablet(s) PO QHS AND 1 TAB PO TID PRN 10/20/2016 04/17/2017 Inactive dexamethasone 0.5 mg tablet RxNorm: 619220 TAKE ONE TABLET BY MOUTH ONCE DAILY 10/06/2016 11/04/2016 Inactive allopurinol 100 mg tablet RxNorm: 480077 1 Tablet(s) PO daily 09/30/2016 09/24/2017 Active Vesicare 5 mg tablet RxNorm: 986449 1 Tablet(s) PO QPM 09/27/2016 12/12/2016 Inactive spironolactone 25 mg tablet RxNorm: 291574 1 Tablet(s) PO daily 08/06/2016 07/31/2017 Active citalopram 40 mg tablet RxNorm: 650945 1 Tablet(s) PO daily 06/28/2016 06/22/2017 Active iron ER 159 mg (45 mg iron) tablet,extended release RxNorm: 512451 1 Tablet(s) PO daily 04/27/2016 No Stop Date Active dexamethasone 0.5 mg tablet RxNorm: 644006 1/2 Tablet(s) PO daily 04/27/2016 No Stop Date Active Plavix 75 mg tablet RxNorm: 175183 1 Tablet(s) PO daily 04/27/2016 No Stop Date Active allopurinol 100 mg tablet RxNorm: 570735 1 Tablet(s) PO daily 04/27/2016 09/29/2016 Inactive clonazepam 1 mg tablet RxNorm: 575262 1 Tablet(s) PO QHS and 1 tab po TID prn 04/14/2016 10/07/2016 Inactive allopurinol 100 mg tablet RxNorm: 968020 1 Tablet(s) PO daily 02/17/2016 04/26/2016 Inactive citalopram 20 mg tablet RxNorm: 604597 1 Tablet(s) PO daily 01/20/2016 06/27/2016 Inactive Flomax 0.4 mg capsule RxNorm: 346045 1 Capsule(s) PO QPM 01/20/2016 01/13/2017 Inactive [SAVINGS FOR NON-COVERED DRUGS -- BIN:[id number], PCN: ASPROD1, Group: XXXXX, ID# XXXXXXX, Questions: . THIS IS NOT INSURANCE.] pantoprazole 40 mg tablet,delayed release RxNorm: 806181 1 Tablet(s) PO QHS 01/20/2016 01/13/2017 Inactive Colcrys 0.6 mg tablet RxNorm: 401986 1 Tablet(s) PO daily 01/06/2016 03/05/2016 Inactive take daily x 7 days then daily as needed for gout flair colchicine 0.6 mg tablet RxNorm: 220703 1 Tablet(s) PO BID 12/30/2015 01/01/2016 Inactive doxycycline hyclate 100 mg tablet RxNorm: 918403 1 Tablet(s) PO BID 12/19/2015 12/28/2015 Inactive doxycycline hyclate 100 mg tablet RxNorm: 895290 1 Tablet(s) PO BID 12/19/2015 12/18/2015 Inactive allopurinol 100 mg tablet RxNorm: 542799 1 Tablet(s) PO daily 12/16/2015 02/16/2016 Inactive colchicine 0.6 mg tablet RxNorm: 790950 Tablet(s) PO 1.2 mg PO in the morning and 0.6 mg at night for 2 days. 12/16/2015 12/29/2015 Inactive allopurinol 100 mg tablet RxNorm: 484789 1 Tablet(s) PO daily 12/16/2015 12/15/2015 Inactive Protonix 40 mg tablet,delayed release RxNorm: 956797 1 Tablet(s) PO daily 12/16/2015 01/14/2016 Inactive Bactrim DS 800 mg-160 mg tablet RxNorm: 325053 1 Tablet(s) PO BID 12/16/2015 12/18/2015 Inactive colchicine 0.6 mg tablet RxNorm: 367580 Tablet(s) PO 1.2 mg for the first dose and 0.6 mg an hour after 12/15/2015 12/15/2015 Inactive dexamethasone 0.5 mg tablet RxNorm: 657013 1 Tablet(s) PO 12/12/2015 02/09/2016 Inactive Plavix 75 mg tablet RxNorm: 469329 1 Tablet(s) PO every other day 12/12/2015 04/09/2016 Inactive nitroglycerin 0.4 mg sublingual tablet RxNorm: 199553 1 Tablet(s) SL x3 in 15 min as needed 12/12/2015 04/26/2016 Inactive clonazepam 1 mg tablet RxNorm: 479858 1 Tablet(s) PO QHS and 1 tab po TID prn 12/11/2015 12/03/2016 Inactive [place] 5 mg-325 mg tablet RxNorm: 821636 1-2 Tablet(s) PO Q6 as needed 12/11/2015 09/26/2016 Inactive clonazepam 1 mg tablet RxNorm: 979111 1 Tablet(s) PO QHS and 1 tab po TID prn 12/04/2015 12/10/2015 Inactive Flomax 0.4 mg capsule RxNorm: 663284 1 Capsule(s) PO QPM 09/22/2015 01/19/2016 Inactive [SAVINGS FOR NON-COVERED DRUGS -- BIN:560949, PCN: ASPROD1, Group: XXXXX, ID# XXXXXXX, Questions: . THIS IS NOT INSURANCE.] Flomax 0.4 mg capsule RxNorm: 067342 1 Capsule(s) PO QPM 09/16/2015 09/21/2015 Inactive [SAVINGS FOR NON-COVERED DRUGS -- BIN:662359, PCN: ASPROD1, Group: XXXXX, ID# XXXXXXX, Questions: . THIS IS NOT INSURANCE.] clonazepam 1 mg tablet RxNorm: 391659 1 Tablet(s) PO QHS 08/29/2015 12/03/2015 Inactive coenzyme Q10 10 mg tablet RxNorm: 870203 1 Tablet(s) PO daily 07/30/2015 01/05/2016 Inactive spironolactone 25 mg tablet RxNorm: 878705 1 Tablet(s) PO daily 07/28/2015 07/21/2016 Inactive spironolactone 25 mg tablet RxNorm: 025537 1 Tablet(s) PO daily 07/22/2015 07/27/2015 Inactive clonazepam 1 mg tablet RxNorm: 923470 1 Tablet(s) PO QHS 05/23/2015 08/28/2015 Inactive losartan 25 mg tablet RxNorm: 501627 1 Tablet(s) PO daily 02/19/2015 03/20/2015 Inactive Flonase Allergy Relief 50 mcg/actuation nasal spray,suspension RxNorm: 1 [place] NASAL BID 02/19/2015 04/26/2016 Inactive [SAVINGS FOR NON-COVERED DRUGS -- BIN:102841, PCN: ASPROD1, Group: XXXXX, ID# XXXXXXX, Questions: . THIS IS NOT INSURANCE.] Flomax 0.4 mg capsule RxNorm: 605547 1 Capsule(s) PO QPM 02/19/2015 09/15/2015 Inactive [SAVINGS FOR NON-COVERED DRUGS -- BIN:735833, PCN: ASPROD1, Group: XXXXX, ID# XXXXXXX, Questions: . THIS IS NOT INSURANCE.] citalopram 20 mg tablet RxNorm: 115035 1 Tablet(s) PO daily 02/19/2015 03/20/2015 Inactive atenolol 25 mg tablet RxNorm: 382331 1 Tablet(s) PO daily 02/19/2015 03/20/2015 Inactive Lipitor 20 mg tablet RxNorm: 618167 1 Tablet(s) PO daily 02/19/2015 03/20/2015 Inactive glucosamine HCl 1,500 mg tablet RxNorm: 124246 1 Tablet(s) with 1200 mg chrondroitin PO daily No Start Date Active krill oil oral RxNorm: 70323 oral No Start Date Active Vitamin B-6 100 mg tablet RxNorm: 170184 1 Tablet(s) PO TID No Start Date Active Osteo Bi-Flex oral RxNorm: 0388800 oral No Start Date Active aspirin 81 mg tablet,delayed release RxNorm: 720139 1 Tablet(s) PO daily No Start Date Active Aleve 220 mg tablet RxNorm: 923663 Tablet(s) PO as needed No Start Date Active Vitamin D3 1,000 unit capsule RxNorm: 364706 2 Capsule(s) PO daily No Start Date Active Centrum Complete oral RxNorm: 67170 oral No Start Date Active ranitidine 150 mg tablet RxNorm: 689078 1 Tablet(s) PO TID No Start Date 12/11/2015 Inactive [place] 5 mg-325 mg tablet RxNorm: 241613 1-2 Tablet(s) PO Q6 as needed No Start Date 12/10/2015 Inactive spironolactone 25 mg tablet RxNorm: 891236 1 Tablet(s) PO daily No Start Date 07/21/2015 Inactive Vitamin D3 oral RxNorm: 2418 oral No Start Date 02/17/2016 Inactive clonazepam 1 mg tablet RxNorm: 349990 1 Tablet(s) PO daily No Start Date 05/22/2015 Inactive Glucosamine oral RxNorm: 4845 oral No Start Date 04/26/2016 Inactive Plavix 75 mg tablet RxNorm: 337678 1 Tablet(s) PO every other day No Start Date 12/11/2015 Inactive iron ER 159 mg (45 mg iron) tablet,extended release RxNorm: 835371 1 Tablet(s) PO BID No Start Date 04/26/2016 Inactive amlodipine 5 mg tablet RxNorm: 087023 1 Tablet(s) PO daily No Start Date 01/05/2016 Inactive dexamethasone 0.5 mg tablet RxNorm: 072321 1 Tablet(s) PO No Start Date 12/11/2015 Inactive colchicine 0.6 mg tablet RxNorm: 730625 Tablet(s) PO 1.2 mg for the first dose and 0.6 mg an hour after No Start Date 12/14/2015 Inactive nitroglycerin 0.4 mg sublingual tablet RxNorm: 955765 1 Tablet(s) SL x3 in 15 min as needed No Start Date 12/11/2015 Inactive Fish Oil 1,000 mg capsule RxNorm: 1 Capsule(s) PO daily No Start Date 04/26/2016 Inactive Ecotrin Low Strength 81 mg tablet,enteric coated RxNorm: 2090740 1 Tablet(s) PO daily No Start Date 09/27/2016 Inactive Medication Administered No Medication Administered data Immunizations Vaccine Codes Date Status Influenza CVX: 141 06/28/2016 completed Tetanus, Diptheria, Pertussis CVX: 113 06/28/2016 completed Tetanus/Diptheria CVX: 113 06/28/2016 completed Pneumococcal Unknown 08/04/2015 completed Influenza CVX: 141 04/16/2014 completed Pneumococcal CVX: 33 05/15/2008 completed Assessments Condition Codes Effective Dates Mixed hyperlipidemia ICD-10: E78.2 ICD-9: 272.2 04/26/2017 Major depressive disorder, recurrent, mild ICD-10: F33.0 ICD-9: 296.31 04/26/2017 Essential (primary) hypertension ICD-10: I10 ICD-9: 401.1 04/26/2017 Urge incontinence ICD-10: N39.41 ICD-9: 788.31 [...] 530.81 07/30/2015 ESSENTIAL HYPERTENSION ICD-9: 401.9 06/09/2015 Encounter for screening fecal occult blood testing ICD-9: V76.51 02/19/2015 DEPRESSIVE DISORDER NEC ICD-9: 311 02/19/2015 Enlarged prostate ICD-9: 600.00 02/19/2015 Nasal inflammation due to allergen ICD-9: 477.9 02/19/2015 Reason For Visit Reason For Visit Effective Dates Notes hypertension 04/26/2017 he has been to chiropractor [...] 30.8 pg 04/11/2017 Cbc With Differential Ord2 [place]% 8.1 % 04/11/2017 Cbc With Differential Ord2 [...] 1.91 K/ul 04/11/2017 Cbc With Differential Ord2 [place] ABS# 0.5 K/ul 04/11/2017 Cbc With Differential Ord2 Eos ABS# 0.2 K/ul 04/11/2017 Cbc With Differential Ord2 Baso ABS# 0.0 K/ul 04/11/2017 Comp Metabolic Mjf521 NA 140 mEq/L 04/11/2017 Comp Metabolic Xti392 K 4.1 mEq/L 04/11/2017 Comp Metabolic Gja369 CL 105 mEq/L 04/11/2017 Comp Metabolic Hxw794 CO2 26.0 mEq/L 04/11/2017 Comp Metabolic Ntq254 ANION GAP 13 04/11/2017 Comp Metabolic Evh477 GLUCOSE 88 mg/dL 04/11/2017 Comp Metabolic Hog582 Creat 1.1 mg/dL 04/11/2017 Comp Metabolic Zmn842 eGFR 66 ml/min/1.73m2 04/11/2017 Comp Metabolic Edt564 BUN 18 mg/dL 04/11/2017 Comp Metabolic Zjo573 B/C Ratio 15.9 Ratio 04/11/2017 Comp Metabolic Qwa540 CALCIUM 9.0 mg/dL 04/11/2017 Comp Metabolic Rru359 ALK PHOS 72 U/L 04/11/2017 Comp Metabolic Svj667 AST(SGOT) 22 U/L 04/11/2017 Comp Metabolic Wrq940 ALT(SGPT) 26 U/L 04/11/2017 Comp Metabolic Xqw999 BILI T 1.0 mg/dL 04/11/2017 Comp Metabolic Gao537 ALBUMIN 4.0 g/dL 04/11/2017 Comp Metabolic Sfj085 TPRO 6.4 g/dL 04/11/2017 Comp Metabolic Bqo459 GLOB 2.4 g/dL 04/11/2017 Comp Metabolic Hcl955 A/G Ratio 1.6 Ratio 04/11/2017 Comp Metabolic Dbn877 Osmo 281 mOsmo 04/11/2017 Vitamin D 25 Oh Jbr1746 VITAMIN D, 25 HYDROXY 65.52 ng/mL 05/19/2016 [...] 85.2 fl 05/18/2016 Cbc With Differential Ord2 [place]% 7.2 % 05/18/2016 Cbc With Differential Ord2 [...] 1.80 K/ul 05/18/2016 Cbc With Differential Ord2 [place] ABS# 0.4 K/ul 05/18/2016 Cbc With Differential Ord2 Eos ABS# 0.2 K/ul 05/18/2016 Cbc With Differential Ord2 Baso ABS# 0.0 K/ul 05/18/2016 Urinalysis Ord28 U-Color Yellow 05/18/2016 Urinalysis [...] if refrigerated) 05/18/2016 Random Urine Protein/Creatinine Ratio Yzz6441 U Prot 15.0 mg/dl 05/18/2016 Random Urine Protein/Creatinine Ratio Rnz6043 U CREAT 141.0 mg/dL 05/18/2016 Random Urine Protein/Creatinine Ratio Xsw9598 R MTP/Creat Ratio 0.11 05/18/2016 Renal Iar402 NA 139 mEq/L 05/18/2016 Renal Chi934 K 4.0 mEq/L 05/18/2016 Renal Cdm631 CL 104 mEq/L 05/18/2016 Renal Gqg253 CO2 27.0 mEq/L 05/18/2016 Renal Vkz343 ANION GAP 12 05/18/2016 Renal Nnm262 Osmo 279 mOsmo 05/18/2016 Renal Hov946 GLUCOSE 91 mg/dL 05/18/2016 Renal Muo684 BUN 18 mg/dL 05/18/2016 Renal Jpc657 Creat 1.3 mg/dL 05/18/2016 Renal Coa531 eGFR 59 ml/min/1.73m2 05/18/2016 Renal Tca239 B/C Ratio 14.3 Ratio 05/18/2016 Renal Czc547 CALCIUM 9.3 mg/dL 05/18/2016 Renal Qzz108 PHOS 3.2 mg/dL 05/18/2016 Renal Ohs135 ALBUMIN 4.2 g/dL 05/18/2016 Magnesium Ord90 Mag 2.0 mg/dL 05/18/2016 Lipid Ord30 CHOL 157 mg/dL 02/19/2016 [...] 28.5 pg 02/19/2016 Cbc With Differential Ord2 [place]% 9.5 % 02/19/2016 Cbc With Differential Ord2 [...] 1.91 K/ul 02/19/2016 Cbc With Differential Ord2 [place] ABS# 0.5 K/ul 02/19/2016 Cbc With Differential Ord2 Eos ABS# 0.2 K/ul 02/19/2016 Cbc With Differential Ord2 Baso ABS# 0.0 K/ul 02/19/2016 Cbc With Differential Ord2 New Analyzer Notice Please note new ref ranges starting 10-29-2015 due to implemntation of new five part differential hematolgy analyzer. 02/19/2016 Total Psa Ord10 PSA 0.82 ng/mL 02/19/2016 Uric Acid Ord77 Uric A 6.0 mg/dL 02/19/2016 Comp Metabolic Xtt057 NA 138 mEq/L 02/19/2016 Comp Metabolic Jlo340 K 3.8 mEq/L 02/19/2016 Comp Metabolic Eyf963 CL 103 mEq/L 02/19/2016 Comp Metabolic Gbx797 CO2 28.0 mEq/L 02/19/2016 Comp Metabolic Rzn406 ANION GAP 11 02/19/2016 Comp Metabolic Oqa518 GLUCOSE 94 mg/dL 02/19/2016 Comp Metabolic Wwa745 Creat 1.0 mg/dL 02/19/2016 Comp Metabolic Mqb393 eGFR 75 ml/min/1.73m2 02/19/2016 Comp Metabolic Jte412 BUN 18 mg/dL 02/19/2016 Comp Metabolic Ivq425 B/C Ratio 17.6 Ratio 02/19/2016 Comp Metabolic Fvu589 CALCIUM 9.6 mg/dL 02/19/2016 Comp Metabolic Esa053 ALK PHOS 93 U/L 02/19/2016 Comp Metabolic Sob846 AST(SGOT) 23 U/L 02/19/2016 Comp Metabolic Lym718 ALT(SGPT) 19 U/L 02/19/2016 Comp Metabolic Gys967 BILI T 0.8 mg/dL 02/19/2016 Comp Metabolic Kop638 ALBUMIN 4.1 g/dL 02/19/2016 Comp Metabolic Cff701 TPRO 6.8 g/dL 02/19/2016 Comp Metabolic Mtn384 GLOB 2.7 g/dL 02/19/2016 Comp Metabolic Nsg630 A/G Ratio 1.5 Ratio 02/19/2016 Comp Metabolic Rbx579 Osmo 277 mOsmo 02/19/2016 Tsh Ord6 hTSH II 2.10 uIU/mL 02/19/2016 Uric Acid Ord77 Uric A 6.1 [...] 28.1 pg 12/16/2015 Cbc With Differential Ord2 [place]% 7.5 % 12/16/2015 Cbc With Differential Ord2 [...] 1.52 K/ul 12/16/2015 Cbc With Differential Ord2 [place] ABS# 0.4 K/ul 12/16/2015 Cbc With Differential Ord2 Eos ABS# 0.2 K/ul 12/16/2015 Cbc With Differential Ord2 Baso ABS# 0.0 K/ul 12/16/2015 Cbc With Differential Ord2 New Analyzer Notice Please note new ref ranges starting 10-29-2015 due to implemntation of new five part differential hematolgy analyzer. 12/16/2015 Comp Metabolic Dwg529 NA 140 mEq/L 12/16/2015 Comp Metabolic Lat852 K 4.0 mEq/L 12/16/2015 Comp Metabolic Txd692 CL 105 mEq/L 12/16/2015 Comp Metabolic Ffn974 CO2 24.0 mEq/L 12/16/2015 Comp Metabolic Rsq564 ANION GAP 15 12/16/2015 Comp Metabolic Gte980 GLUCOSE 85 mg/dL 12/16/2015 Comp Metabolic Ivb418 Creat 1.2 mg/dL 12/16/2015 Comp Metabolic Sqg280 eGFR 65 ml/min/1.73m2 12/16/2015 Comp Metabolic Osn312 BUN 14 mg/dL 12/16/2015 Comp Metabolic Htm874 B/C Ratio 12.1 Ratio 12/16/2015 Comp Metabolic Wng663 CALCIUM 9.1 mg/dL 12/16/2015 Comp Metabolic Wiu161 ALK PHOS 162 U/L 12/16/2015 Comp Metabolic Ktx519 AST(SGOT) 14 U/L 12/16/2015 Comp Metabolic Fhr397 ALT(SGPT) 17 U/L 12/16/2015 Comp Metabolic Nnu288 BILI T 1.0 mg/dL 12/16/2015 Comp Metabolic Cqa616 ALBUMIN 3.4 g/dL 12/16/2015 Comp Metabolic Yxt787 TPRO 6.2 g/dL 12/16/2015 Comp Metabolic Oja234 GLOB 2.9 g/dL 12/16/2015 Comp Metabolic Xjr662 A/G Ratio 1.2 Ratio 12/16/2015 Comp Metabolic Rbc023 Osmo 279 mOsmo 12/16/2015 Lipid Ord30 CHOL 156 mg/dL 07/21/2015 Lipid Ord30 HDL 39.0 mg/dl 07/21/2015 Lipid Ord30 TRIG 127 mg/dL 07/21/2015 Lipid Ord30 LDL 92 mg/dL 07/21/2015 Lipid Ord30 C/HDL 4.0 Ratio 07/21/2015 Urine Protein 24Hr Cdy705 U Prot 5.1 mg/dl 05/16/2015 Urine Protein 24Hr Rxd748 U Prot24 71.5 mg/24hr 05/16/2015 Total Volume Urine Uls146 TV/24hr 1400 ml 05/16/2015 Cbc With Differential [...] Differential Ord2 RDW 15.4 % 05/15/2015 Renal Ovy274 NA 135 mEq/L 05/15/2015 Renal Upb075 K 3.9 mEq/L 05/15/2015 Renal Lcm027 CL 101 mEq/L 05/15/2015 Renal Drg564 CO2 27.0 mEq/L 05/15/2015 Renal Vzx012 ANION GAP 11 05/15/2015 Renal Nfw482 Osmo 274 mOsmo 05/15/2015 Renal Bpn754 GLUCOSE 132 mg/dL 05/15/2015 Renal Kad551 BUN 19 mg/dL 05/15/2015 Renal Vol197 Creat 1.1 mg/dL 05/15/2015 Renal Sby023 eGFR 67 ml/min/1.73m2 05/15/2015 Renal Hnm513 B/C Ratio 17.0 Ratio 05/15/2015 Renal Bin108 CALCIUM 9.6 mg/dL 05/15/2015 Renal Jwu134 PHOS 3.0 mg/dL 05/15/2015 Renal Qef664 ALBUMIN 4.3 g/dL 05/15/2015 Total Psa Ord10 PSA 0.70 ng/mL 05/15/2015 Review of Systems System Result Effective Dates Constitutional No chills 04/26/2017 Constitutional No diaphoresis [...] tympanosclerosis 02/19/2015 None Procedures Procedure Codes Date ADMIN INFLUENZA VIRUS VAC CPT-4: K6160Ahrmlor 06/28/2016 FLU VACC PRSV FREE INC ANTIG CPT-4: 55902Fjxwcjy 06/28/2016 TENIVAC TD VACCINE NO PRSRV 7/> IM CPT-4: 42073Kzphvsl 06/28/2016 OCCULT BLOOD FECES CPT-4: 78259Myukdeh 02/19/2015 Vital Signs Date Vital 04/26/2017 Blood Pressure 1: 122/72 Code: 8480-6 BMI: 29.4 Code: 69545-0 Heart Rate 1: 85 bpm Height: 6' SpO2: 92% Weight: 217 lbs 01/25/2017 Blood Pressure 1: 118/78 Code: 8480-6 BMI: 29.4 Code: 45321-4 Heart Rate 1: 72 bpm Height: 6' SpO2: 94% Temperature: 36.9 (C) / 98.5 (F) Weight: 217 lbs 10/26/2016 Blood Pressure 1: 152/86 Code: 8480-6 BMI: 29.7 Code: 06502-3 Heart Rate 1: 58 bpm Height: 6' Weight: 219 lbs 09/27/2016 Blood Pressure 1: 138/80 Code: 8480-6 BMI: 29.4 Code: 63441-6 Heart Rate 1: 52 bpm Height: 6' SpO2: 98% Weight: 217 lbs 06/28/2016 Blood Pressure 1: 128/86 Code: 8480-6 BMI: 29.6 Code: 92831-1 Heart Rate 1: 69 bpm Height: 6' SpO2: 93% Weight: 218 lbs 04/27/2016 Blood Pressure 1: 118/82 Code: 8480-6 BMI: 29.3 Code: 65286-9 Heart Rate 1: 85 bpm Height: 6' SpO2: 98% Weight: 216 lbs 02/17/2016 Blood Pressure 1: 132/80 Code: 8480-6 BMI: 28.8 Code: 21794-3 Heart Rate 1: 94 bpm Height: 6' SpO2: 98% Weight: 212 lbs 01/20/2016 Blood Pressure 1: 120/70 Code: 8480-6 BMI: 29.7 Code: 22193-0 Heart Rate 1: 87 bpm Height: 6' SpO2: 92% Weight: 219 lbs 01/06/2016 Blood Pressure 1: 122/88 Code: 8480-6 BMI: 28.8 Code: 40462-6 Heart Rate 1: 83 bpm Height: 6' SpO2: 97% Weight: 212 lbs 12/16/2015 Blood Pressure 1: 98/62 Code: 8480-6 Heart Rate 1: 62 bpm Height: 6' SpO2: 90% Weight: 11/27/2015 Blood Pressure 1: 90/64 Code: 8480-6 Blood Pressure 1: 110/80 Code: 8480-6 Heart Rate 1: 91 bpm Height: 6' SpO2: 92% Weight: 07/30/2015 Blood Pressure 1: 112/82 Code: 8480-6 BMI: 30.5 Code: 16366-3 Heart Rate 1: 82 bpm Height: 6' SpO2: 92% Weight: 225 lbs 06/09/2015 Blood Pressure 1: 130/76 Code: 8480-6 BMI: 31.1 Code: 34360-4 Heart Rate 1: 65 bpm Height: 6' SpO2: 96% Weight: 229 lbs 04/29/2015 Blood Pressure 1: 118/78 Code: 8480-6 BMI: 30.7 Code: 58475-7 Heart Rate 1: 70 bpm Height: 6' Weight: 226 lbs 02/19/2015 Blood Pressure 1: 118/70 Code: 8480-6 BMI: 29.7 Code: 42170-5 Heart Rate 1: 68 bpm Height: 6' Weight: 219 lbs Functional Status No Functional Status data History of Present Illness Symptom Name Status Result Effective Date Notes hypertension Quality intermittent 04/26/2017 None hypertension Onset [...] data Encounters Encounter Performer Location Codes Date ([id number]) [id number] EST. PATIENT, LEVEL IV Diagnosis: Essential (primary) hypertension[ICD10: I10] Diagnosis: Major depressive disorder, recurrent, mild[ICD10: F33.0] Diagnosis: Mixed hyperlipidemia[ICD10: E78.2] Lesley Butcher MD, [facility] CPT- 4: 05844 04/26/2017 ([id number]) 14415 EST. PATIENT, LEVEL IV Diagnosis: Essential (primary) hypertension[ICD10: I10] Diagnosis: Major depressive disorder, recurrent, mild[ICD10: F33.0] Diagnosis: Urge incontinence[ICD10: N39.41] [facility] CPT-4: 41606 01/25/2017 ([id number]) [id number] EST. PATIENT, LEVEL IV Diagnosis: Essential (primary) hypertension[ICD10: I10] Diagnosis: Major depressive disorder, recurrent, mild[ICD10: F33.0] Diagnosis: Urge incontinence[ICD10: N39.41] Lesley Butcher MD, [facility] CPT-4: 40169 10/26/2016 [id number]) [id number] EST. PATIENT, LEVEL III Diagnosis: Essential (primary) hypertension[ICD10: I10] Diagnosis: Major depressive disorder, recurrent, mild[ICD10: F33.0] Diagnosis: Urge incontinence[ICD10: N39.41] Lesley Butcher MD, [facility] CPT-4: 64383 09/27/2016 [id number]) [id number] EST. PATIENT, LEVEL IV Diagnosis: Essential (primary) hypertension[ICD10: I10] Diagnosis: Encounter for immunization[ICD10: Z23] Diagnosis: Laceration without foreign body of left forearm, initial encounter[ICD10: S51.812A] Diagnosis: Laceration without foreign body of right forearm, initial encounter[ICD10: S51.811A] Diagnosis: Major depressive disorder, recurrent, mild[ICD10: F33.0] Lesley Butcher MD, [facility] CPT-4: 81878 06/28/2016 [id number]) [id number] EST. 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 PATIENT, LEVEL V Diagnosis: Essential (primary) hypertension[ICD10: I10] Diagnosis: Major depressive disorder, recurrent, mild[ICD10: F33.0] Diagnosis: Idiopathic gout, left ankle and foot[ICD10: M10.072] Diagnosis: Mixed hyperlipidemia[ICD10: E78.2] Lesley Butcher MD, [facility] CPT- 4: 74557 02/17/2016 [id number]) [id number] EST. PATIENT, LEVEL IV Diagnosis: Idiopathic gout, left ankle and foot[ICD10: M10.072] Diagnosis: Major depressive disorder, single episode, unspecified[ICD10: F32.9] Diagnosis: Localized edema[ICD10: R60.0] Merline Butcher MD, [facility] CPT-4: 14764 01/20/2016 [id number] EST. 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 PATIENT, LEVEL IV Diagnosis: Weakness[ICD10: R53.1] Diagnosis: Gout, unspecified[ICD10: M10.9] Diagnosis: Hypotension, unspecified[ICD10: I95.9] Lesley Butcher MD, [facility] CPT-4: 76361 12/16/2015 ([id number]) Patient admitted to the hospital from clinic (NO CHARGE) Diagnosis: Hypoxemia[ICD10: R09.02] Diagnosis: Weakness[ICD10: R53.1] Diagnosis: Dyspnea, unspecified[ICD10: R06.00] Mady Butcher MD, [facility] CPT- 4: 69562G 11/27/2015 ([id number]) 54368 EST. PATIENT, LEVEL III Diagnosis: Essential (primary) hypertension[ICD10: I10] Diagnosis: Gastro-esophageal reflux disease without esophagitis[ICD10: K21.9] Lesley Butcher MD, [facility] CPT-4: 40907 07/30/2015 ([id number]) 12978 EST. PATIENT, LEVEL III Diagnosis: ESSENTIAL HYPERTENSION[ICD9: 401.9] Merline Butcher MD, [facility] CPT-4: 88153 06/09/2015 ([id number]) 90509 EST. PATIENT, LEVEL III Diagnosis: ESSENTIAL HYPERTENSION[ICD9: 401.9] Lesley Butcher MD, [facility] CPT- 4: 98280 04/29/2015 ([id number]) OFFICE/OUTPATIENT VISIT NEW Diagnosis: ESSENTIAL HYPERTENSION[ICD9: 401.9] Diagnosis: DEPRESSIVE DISORDER NEC[ICD9: 311] Diagnosis: Enlarged prostate[ICD9: 600.00] Diagnosis: Nasal inflammation due to allergen[ICD9: 477.9] [facility] CPT-4: 24922 02/19/2015 Plan of Care Planned Activity Notes Codes Status Date Visit Plan: Hypertension - well controlled - continue with current medications, continue with no added salt diet. Pt has been encouraged to exercise daily.The pt has been advised to call the office if there are any acute concerns about change in blood pressure readings at home.Hyperlipidemia - pt has been counseled about appropriate [...] and to assure normal liver response to medications.Chronic Depression and anxiety - the pt has symptoms of chronic anxiety and depression that have been fairly well controlled since the last office visit. The pt has expected periods of exacerbation with abatement of the symptoms with change in situational exposure. No change in current medications. 04/26/2017 Appointment: Lesley uBtcher WPtel: [address] [place], [place] [id number] (15 min) Moderate 04/26/2017 Patient Education: Patient Medication Summary Completed 04/26/2017 Visit Plan: Hypertension - well controlled - continue with current medications, continue with no added salt diet. Pt has been encouraged to exercise daily.The pt has been advised to call the office if there are any acute concerns about change in blood pressure readings at home.Depression - stable - continue with current medication.Urge incontinence - increase dose of oxybutynin to 10mg daily. 01/25/2017 Appointment: Lesley Butcher WPtel: [address] [place], [place] [id number] (30 min) Complex 01/25/2017 Patient Education: Patient [...] diet. Pt has been encouraged to exercise daily.The pt has been advised to call the office if there are any acute concerns about change in blood pressure readings at home.Depression - stable - continue with current medication.Urge incontinence - rx for detrol [place] 10/26/2016 Appointment: Lesley Butcher WPtel: [phone] [id number] (15 min) Moderate 10/26/2016 Patient Education: Patient Medication Summary Completed 10/26/2016 Visit Plan: Hypertension - well controlled - continue with current medications, continue with no added salt diet. Pt has been encouraged to exercise daily.The pt has been advised to call the office if there are any acute concerns about change in blood pressure readings at home.Depression - persistent - no change in medication at this time.Urgency of urination - rx for vesicare for pt, call if not improving, call if symptoms of urinary retention occur. 09/27/2016 Appointment: Lesley Butcher WPtel: [id number] (15 min) Moderate 09/27/2016 Patient Education: Patient Medication Summary Completed 09/27/2016 Visit Plan: Hypertension - well controlled - continue with current medications, continue with no added salt diet. Pt has been encouraged to exercise daily.The pt has been advised to call the office if there are any acute concerns about change in blood pressure readings at home.Chronic Depression and anxiety - the pt has symptoms of chronic anxiety and depression that have been fairly well controlled since the last office visit. The pt has expected periods of exacerbation with abatement of the symptoms with change in situational exposure. No change in current medications.tetanus shot todayagree with appt with shelli andrea 06/28/2016 Appointment: Lesley Butcher WPtel: [id number] (15 min) Moderate 06/28/2016 Patient Education: Patient Medication Summary Completed 06/28/2016 Visit Plan: Hypertension - well controlled - continue with current medications, continue with no added salt diet. Pt has been encouraged to exercise daily.The pt has been advised to call the office if there are any acute concerns about change in blood pressure readings at home.Gout - chronic - continue with allopurinol.Iron deficiency anemia - continue with oral iron. 04/27/2016 Patient Education: Patient Medication Summary Completed 04/27/2016 Visit Plan: Hypertension - well controlled - continue with current medications, continue with no added salt diet. Pt has been encouraged to exercise daily.The pt has been advised to call the office if there are any acute concerns about change in blood pressure readings at home.Chronic Depression and anxiety - the pt has symptoms of chronic anxiety and depression that have been fairly well controlled since the last office visit. The pt has expected periods of exacerbation with abatement of the symptoms with change in situational exposure. No change in current medications.Hyperlipidemia - pt has been counseled about appropriate [...] and to assure normal liver response to medications.Chronic gout-symptoms stable-continue allopurinol Allergies- recommend allergy eye drops-angela Vang-increase dexamethasone x 1 [...] diet. Pt has been encouraged to exercise daily.The pt has been advised to call the office if there are any acute concerns about change in blood pressure readings at home.Chronic Depression and anxiety - the pt has symptoms of chronic anxiety and depression that have been fairly well controlled since the last office visit. The pt has expected periods of exacerbation with abatement of the symptoms with change in situational exposure. No change in current medications.Hyperlipidemia - pt has been counseled about appropriate [...] and to assure normal liver response to medications.Chronic gout-symptoms stable-continue allopurinol Allergies- recommend allergy eye drops-angela Vang-increase dexamethasone x 1 month 02/17/2016 Appointment: Merline Rose WPtel: [address] [place], [place] [id number] (30 min) Complex 02/17/2016 Patient Education: Patient [...] the risks associated with NOT treating the depression.I believe the pt will benefit from medical intervention and an antidepressant has been appropriately prescribed for this patient.Edema - pt has been advised to elevate [...] diet. Pt has been encouraged to exercise daily.The pt has been advised to call the office if there are any acute concerns about change in blood pressure readings at home.Depression-no change in treatment-continue with physical therapy to [...] diet. Pt has been encouraged to exercise daily.The pt has been advised to call the office if there are any acute concerns about change in blood pressure readings at home.Depression-no change in treatment-continue with physical therapy to [...] to be given results of labs when available.Generalized weakness - continue physical therapy after gout [...] to be given results of labs when available.Generalized weakness - continue physical therapy after gout resolves, will give script for manual wheelchair and shower chair. Notify clinic with any questions or concerns. 12/16/2015 Appointment: (30 min) Complex 12/16/2015 Patient Education: Patient Medication Summary Completed 12/16/2015 Appointment: Lesley Butcher WPtel: [phone] [id number] (15 min) Moderate 12/04/2015 Appointment: Lesley Butcher WPtel: [id number] (15 min) Moderate 12/02/2015 Visit Plan: Admission [...] acute hospital stay for the patient's health benefit.ADMIT FROM CLINIC TO HOSPITAL - PT IS [...] diet. Pt has been encouraged to exercise daily.The pt has been advised to call the office if there are any acute concerns about change in blood pressure readings at home.Esophageal Reflux - the patient has been counseled against excessive intake of caffeine, spicy foods, peppermint, and cinnamon - all of which can exacerbate esophageal reflux.The patient is to take medications as prescribed and call the office if the symptoms are not improving.PT TO CALL BACK - HIS WILL HELP HIM DETERMINE IF HE NEEDS THE PREVNAR 13 SHOTHE WILL GET THE FLU SHOT AT THE PHARMACY 07/30/2015 Appointment: Lesley Butcher WPtel: [phone] [id number] (15 min) Moderate 07/30/2015 Patient Education: Patient Medication Summary Completed 07/30/2015 Patient Education: Hypertension Completed 07/30/2015 Visit Plan: Hypertension - well controlled - continue with current medications, continue with no added salt diet. Pt has been encouraged to exercise daily.The pt has been advised to call the office if there are any acute concerns about change in blood pressure readings at home. 06/09/2015 Appointment: (15 min) Moderate 06/09/2015 Patient Education: Patient Medication Summary Completed 06/09/2015 Visit Plan: Hypertension - well controlled - continue with current medications, continue with no added salt diet. Pt has been encouraged to exercise daily.The pt has been advised to call the office if there are any acute concerns about change in blood pressure readings at home. 04/29/2015 Appointment: Lesley Butcher WPtel: [id number] (15 min) Moderate 04/29/2015 Patient Education: Patient Medication Summary Completed 04/29/2015 Patient Education: Hypertension Completed 04/29/2015 Visit Plan: Hypertension - well controlled - continue with current medications, continue with no added salt diet. Pt has been encouraged to exercise daily.The pt has been advised to call the office if there are any acute concerns about change in blood pressure readings at home.Enlarged Prostate - recommended pt to start on flomax, monitor output - pt and his aware that it will take several weeks to notice a difference.Hyperlipidemia - pt has been counseled about appropriate [...] and to assure normal liver response to medications.Allergies - chronic - recommended pt to use allergy medication as p rescribed. Pt has been counseled as to the appropriate use of the medication. Pt to call if allergy symptoms are not controlled with the medication.If using nasal spray, instructions as follows: Nasal spray- use twice daily, one spray per nostril twice daily, after 30 minutes, rinse out nose with saline spray.. Use opposite hand per nostril to spray in the nasal steroid allergy spray. 02/19/2015 Patient Education: Patient Medication Summary Completed 02/19/2015 Patient Education: Hypertension Completed 02/19/2015 Instructions Comment . Hypertension - well controlled [...] deficiency anemia - continue with oral iron. Take 1/2 tab of Citalopram daily for [...]
--- OUTSIDE RECORDS SUMMARY | 2019-03-23 19:13 | XMS REPORT | CCD ---
Author Author [facility] Organization [facility] Address [address] [place] [address] Phone Care Team Providers Care Dispatcher Street Department Name Role Phone PP Unavailable CCM Unavailable Summary Purpose Interface Exchange Insurance Providers Payer name Policy type / Coverage type Covered democrat ID Effective Begin Date Effective End Date WPS Medicare Part B Medicare Part B [id number] Unknown Unknown [facility] Medicare Part B [id number] Unknown Unknown Family history Father Diagnosis Age At Onset Hypertension Unknown Coronary Artery Disease Unknown Mother Diagnosis Age At Onset Coronary Artery Disease Unknown Hypertension Unknown Social History Social History Element Codes Description Effective Dates Marital status Unknown 02/19/2015 Number of children Unknown 2 02/19/2015 Employment Unknown Retired 02/19/[address]: 729401124 Has never smoked or chewed tobacco 02/19/2015 [...] Fill Instructions dexamethasone 0.5 mg tablet RxNorm: 274480 TAKE ONE TABLET BY MOUTH ONCE DAILY 02/14/2017 04/14/2017 Inactive Flomax 0.4 mg capsule RxNorm: 954644 TAKE ONE CAPSULE BY MOUTH ONCE DAILY IN THE EVENING 02/14/2017 11/10/2017 Active pantoprazole 40 mg tablet,delayed release RxNorm: 404941 TAKE ONE TABLET BY MOUTH ONCE DAILY AT BEDTIME 02/14/2017 11/10/2017 Active oxybutynin chloride ER 10 mg tablet,extended release 24 hr RxNorm: 402013 1 Tablet(s) PO daily 01/25/2017 04/24/2017 Inactive dexamethasone 0.5 mg tablet RxNorm: 003544 TAKE ONE TABLET BY MOUTH ONCE DAILY 11/10/2016 12/09/2016 Inactive oxybutynin chloride ER 5 mg tablet,extended release 24 hr RxNorm: 713839 1 Tablet(s) PO daily 10/28/2016 10/27/2016 Inactive oxybutynin chloride ER 5 mg tablet,extended release 24 hr RxNorm: 080286 1 Tablet(s) PO daily 10/28/2016 01/24/2017 Inactive Detrol LA 2 mg capsule,extended release RxNorm: 896209 1 Capsule(s) PO QPM 10/26/2016 10/27/2016 Inactive clonazepam 1 mg tablet RxNorm: 373473 1 Tablet(s) PO QHS AND 1 TAB PO TID PRN 10/20/2016 04/17/2017 Inactive dexamethasone 0.5 mg tablet RxNorm: 289838 TAKE ONE TABLET BY MOUTH ONCE DAILY 10/06/2016 11/04/2016 Inactive allopurinol 100 mg tablet RxNorm: 376276 1 Tablet(s) PO daily 09/30/2016 09/24/2017 Active Vesicare 5 mg tablet RxNorm: 617582 1 Tablet(s) PO QPM 09/27/2016 12/12/2016 Inactive spironolactone 25 mg tablet RxNorm: 268698 1 Tablet(s) PO daily 08/06/2016 07/31/2017 Active citalopram 40 mg tablet RxNorm: 033350 1 Tablet(s) PO daily 06/28/2016 06/22/2017 Active iron ER 159 mg (45 mg iron) tablet,extended release RxNorm: 677335 1 Tablet(s) PO daily 04/27/2016 No Stop Date Active dexamethasone 0.5 mg tablet RxNorm: 688465 1/2 Tablet(s) PO daily 04/27/2016 No Stop Date Active Plavix 75 mg tablet RxNorm: 355871 1 Tablet(s) PO daily 04/27/2016 No Stop Date Active allopurinol 100 mg tablet RxNorm: 081716 1 Tablet(s) PO daily 04/27/2016 09/29/2016 Inactive clonazepam 1 mg tablet RxNorm: 504092 1 Tablet(s) PO QHS and 1 tab po TID prn 04/14/2016 10/07/2016 Inactive allopurinol 100 mg tablet RxNorm: 135665 1 Tablet(s) PO daily 02/17/2016 04/26/2016 Inactive citalopram 20 mg tablet RxNorm: 603764 1 Tablet(s) PO daily 01/20/2016 06/27/2016 Inactive Flomax 0.4 mg capsule RxNorm: 971681 1 Capsule(s) PO QPM 01/20/2016 01/13/2017 Inactive [SAVINGS FOR NON-COVERED DRUGS -- BIN:[id number], PCN: ASPROD1, Group: XXXXX, ID# XXXXXXX, Questions: . THIS IS NOT INSURANCE.] pantoprazole 40 mg tablet,delayed release RxNorm: 229889 1 Tablet(s) PO QHS 01/20/2016 01/13/2017 Inactive Colcrys 0.6 mg tablet RxNorm: 450579 1 Tablet(s) PO daily 01/06/2016 03/05/2016 Inactive take daily x 7 days then daily as needed for gout flair colchicine 0.6 mg tablet RxNorm: 839435 1 Tablet(s) PO BID 12/30/2015 01/01/2016 Inactive doxycycline hyclate 100 mg tablet RxNorm: 104904 1 Tablet(s) PO BID 12/19/2015 12/28/2015 Inactive doxycycline hyclate 100 mg tablet RxNorm: 538402 1 Tablet(s) PO BID 12/19/2015 12/18/2015 Inactive allopurinol 100 mg tablet RxNorm: 934177 1 Tablet(s) PO daily 12/16/2015 02/16/2016 Inactive colchicine 0.6 mg tablet RxNorm: 684847 Tablet(s) PO 1.2 mg PO in the morning and 0.6 mg at night for 2 days. 12/16/2015 12/29/2015 Inactive allopurinol 100 mg tablet RxNorm: 796645 1 Tablet(s) PO daily 12/16/2015 12/15/2015 Inactive Protonix 40 mg tablet,delayed release RxNorm: 716038 1 Tablet(s) PO daily 12/16/2015 01/14/2016 Inactive Bactrim DS 800 mg-160 mg tablet RxNorm: 066752 1 Tablet(s) PO BID 12/16/2015 12/18/2015 Inactive colchicine 0.6 mg tablet RxNorm: 650056 Tablet(s) PO 1.2 mg for the first dose and 0.6 mg an hour after 12/15/2015 12/15/2015 Inactive dexamethasone 0.5 mg tablet RxNorm: 971136 1 Tablet(s) PO 12/12/2015 02/09/2016 Inactive Plavix 75 mg tablet RxNorm: 790623 1 Tablet(s) PO every other day 12/12/2015 04/09/2016 Inactive nitroglycerin 0.4 mg sublingual tablet RxNorm: 555558 1 Tablet(s) SL x3 in 15 min as needed 12/12/2015 04/26/2016 Inactive clonazepam 1 mg tablet RxNorm: 826978 1 Tablet(s) PO QHS and 1 tab po TID prn 12/11/2015 12/03/2016 Inactive Vale 5 mg-325 mg tablet RxNorm: 627725 1-2 Tablet(s) PO Q6 as needed 12/11/2015 09/26/2016 Inactive clonazepam 1 mg tablet RxNorm: 887265 1 Tablet(s) PO QHS and 1 tab po TID prn 12/04/2015 12/10/2015 Inactive Flomax 0.4 mg capsule RxNorm: 924337 1 Capsule(s) PO QPM 09/22/2015 01/19/2016 Inactive [SAVINGS FOR NON-COVERED DRUGS -- BIN:[id number], PCN: ASPROD1, Group: XXXXX, ID# XXXXXXX, Questions: . THIS IS NOT INSURANCE.] Flomax 0.4 mg capsule RxNorm: 988370 1 Capsule(s) PO QPM 09/16/2015 09/21/2015 Inactive [SAVINGS FOR NON-COVERED DRUGS -- BIN:202814, PCN: ASPROD1, Group: XXXXX, ID# XXXXXXX, Questions: . THIS IS NOT INSURANCE.] clonazepam 1 mg tablet RxNorm: 685112 1 Tablet(s) PO QHS 08/29/2015 12/03/2015 Inactive coenzyme Q10 10 mg tablet RxNorm: 076887 1 Tablet(s) PO daily 07/30/2015 01/05/2016 Inactive spironolactone 25 mg tablet RxNorm: 736143 1 Tablet(s) PO daily 07/28/2015 07/21/2016 Inactive spironolactone 25 mg tablet RxNorm: 948722 1 Tablet(s) PO daily 07/22/2015 07/27/2015 Inactive clonazepam 1 mg tablet RxNorm: 081555 1 Tablet(s) PO QHS 05/23/2015 08/28/2015 Inactive losartan 25 mg tablet RxNorm: 012820 1 Tablet(s) PO daily 02/19/2015 03/20/2015 Inactive Flonase Allergy Relief 50 mcg/actuation nasal spray,suspension RxNorm: 1 Bruni NASAL BID 02/19/2015 04/26/2016 Inactive [SAVINGS FOR NON-COVERED DRUGS -- BIN:851145, PCN: ASPROD1, Group: XXXXX, ID# XXXXXXX, Questions: . THIS IS NOT INSURANCE.] Flomax 0.4 mg capsule RxNorm: 251103 1 Capsule(s) PO QPM 02/19/2015 09/15/2015 Inactive [SAVINGS FOR NON-COVERED DRUGS -- BIN:726566, PCN: ASPROD1, Group: XXXXX, ID# XXXXXXX, Questions: . THIS IS NOT INSURANCE.] citalopram 20 mg tablet RxNorm: 185222 1 Tablet(s) PO daily 02/19/2015 03/20/2015 Inactive atenolol 25 mg tablet RxNorm: 805627 1 Tablet(s) PO daily 02/19/2015 03/20/2015 Inactive Lipitor 20 mg tablet RxNorm: 395373 1 Tablet(s) PO daily 02/19/2015 03/20/2015 Inactive glucosamine HCl 1,500 mg tablet RxNorm: 919783 1 Tablet(s) with 1200 mg chrondroitin PO daily No Start Date Active krill oil oral RxNorm: 19091 oral No Start Date Active Vitamin B-6 100 mg tablet RxNorm: 845191 1 Tablet(s) PO TID No Start Date Active Osteo Bi-Flex oral RxNorm: 9675029 oral No Start Date Active aspirin 81 mg tablet,delayed release RxNorm: 574150 1 Tablet(s) PO daily No Start Date Active Aleve 220 mg tablet RxNorm: 121408 Tablet(s) PO as needed No Start Date Active Vitamin D3 1,000 unit capsule RxNorm: 844477 2 Capsule(s) PO daily No Start Date Active Centrum Complete oral RxNorm: 54379 oral No Start Date Active ranitidine 150 mg tablet RxNorm: 656185 1 Tablet(s) PO TID No Start Date 12/11/2015 Inactive Vale 5 mg-325 mg tablet RxNorm: 590962 1-2 Tablet(s) PO Q6 as needed No Start Date 12/10/2015 Inactive spironolactone 25 mg tablet RxNorm: 006644 1 Tablet(s) PO daily No Start Date 07/21/2015 Inactive Vitamin D3 oral RxNorm: 2418 oral No Start Date 02/17/2016 Inactive clonazepam 1 mg tablet RxNorm: 967962 1 Tablet(s) PO daily No Start Date 05/22/2015 Inactive Glucosamine oral RxNorm: 4845 oral No Start Date 04/26/2016 Inactive Plavix 75 mg tablet RxNorm: 216973 1 Tablet(s) PO every other day No Start Date 12/11/2015 Inactive iron ER 159 mg (45 mg iron) tablet,extended release RxNorm: 598624 1 Tablet(s) PO BID No Start Date 04/26/2016 Inactive amlodipine 5 mg tablet RxNorm: 547779 1 Tablet(s) PO daily No Start Date 01/05/2016 Inactive dexamethasone 0.5 mg tablet RxNorm: 284780 1 Tablet(s) PO No Start Date 12/11/2015 Inactive colchicine 0.6 mg tablet RxNorm: 788987 Tablet(s) PO 1.2 mg for the first dose and 0.6 mg an hour after No Start Date 12/14/2015 Inactive nitroglycerin 0.4 mg sublingual tablet RxNorm: 285554 1 Tablet(s) SL x3 in 15 min as needed No Start Date 12/11/2015 Inactive Fish Oil 1,000 mg capsule RxNorm: 1 Capsule(s) PO daily No Start Date 04/26/2016 Inactive Ecotrin Low Strength 81 mg tablet,enteric coated RxNorm: 9207150 1 Tablet(s) PO daily No Start Date [...] 89.6 fl 04/11/2017 Cbc With Differential Ord2 [place]% 8.1 % 04/11/2017 Cbc With Differential Ord2 [...] 1.91 K/ul 04/11/2017 Cbc With Differential Ord2 [place] ABS# 0.5 K/ul 04/11/2017 Cbc With Differential Ord2 Eos ABS# 0.2 K/ul 04/11/2017 Cbc With Differential Ord2 Baso ABS# 0.0 K/ul 04/11/2017 Comp Metabolic Uqp874 NA 140 mEq/L 04/11/2017 Comp Metabolic Eif727 K 4.1 mEq/L 04/11/2017 Comp Metabolic Ulk109 CL 105 mEq/L 04/11/2017 Comp Metabolic Tvv186 CO2 26.0 mEq/L 04/11/2017 Comp Metabolic Edo545 ANION GAP 13 04/11/2017 Comp Metabolic Aoo753 GLUCOSE 88 mg/dL 04/11/2017 Comp Metabolic Fer561 Creat 1.1 mg/dL 04/11/2017 Comp Metabolic Fri549 eGFR 66 ml/min/1.73m2 04/11/2017 Comp Metabolic Qhu197 BUN 18 mg/dL 04/11/2017 Comp Metabolic Bxp285 B/C Ratio 15.9 Ratio 04/11/2017 Comp Metabolic Nur135 CALCIUM 9.0 mg/dL 04/11/2017 Comp Metabolic Qwc091 ALK PHOS 72 U/L 04/11/2017 Comp Metabolic Jrn636 AST(SGOT) 22 U/L 04/11/2017 Comp Metabolic Yvl709 ALT(SGPT) 26 U/L 04/11/2017 Comp Metabolic Jrj227 BILI T 1.0 mg/dL 04/11/2017 Comp Metabolic Zbe608 ALBUMIN 4.0 g/dL 04/11/2017 Comp Metabolic Syf995 TPRO 6.4 g/dL 04/11/2017 Comp Metabolic Uxk635 GLOB 2.4 g/dL 04/11/2017 Comp Metabolic Prh597 A/G Ratio 1.6 Ratio 04/11/2017 Comp Metabolic Xfk810 Osmo 281 mOsmo 04/11/2017 Vitamin D 25 Oh Phu0770 VITAMIN D, 25 HYDROXY 65.52 ng/mL 05/19/2016 Cbc With Differential Ord2 WBC 5.81 K/ul 05/18/2016 Cbc With Differential Ord2 RBC 5.08 M/ul 05/18/2016 Cbc With Differential Ord2 HGB 14.5 g/dl 05/18/2016 Cbc With Differential Ord2 Neut% 58.5 % 05/18/2016 Cbc With Differential Ord2 HCT 43.3 % 05/18/2016 Cbc With Differential Ord2 Lymph% 31.0 % 05/18/2016 Cbc With Differential Ord2 MCV 85.2 fl 05/18/2016 Cbc With Differential Ord2 MCH 28.5 pg 05/18/2016 Cbc With Differential Ord2 [place]% 7.2 % 05/18/2016 Cbc With Differential Ord2 [...] 1.80 K/ul 05/18/2016 Cbc With Differential Ord2 [place] ABS# 0.4 K/ul 05/18/2016 Cbc With Differential Ord2 Eos ABS# 0.2 K/ul 05/18/2016 Cbc With Differential Ord2 Baso ABS# 0.0 K/ul 05/18/2016 Magnesium Ord90 Mag 2.0 mg/dL 05/18/2016 Renal Jqs912 NA 139 mEq/L 05/18/2016 Renal Hhl580 K 4.0 mEq/L 05/18/2016 Renal Cuu959 CL 104 mEq/L 05/18/2016 Renal Itb749 CO2 27.0 mEq/L 05/18/2016 Renal Veu606 ANION GAP 12 05/18/2016 Renal Bpx468 Osmo 279 mOsmo 05/18/2016 Renal Zxm465 GLUCOSE 91 mg/dL 05/18/2016 Renal Agc219 BUN 18 mg/dL 05/18/2016 Renal Nmm727 Creat 1.3 mg/dL 05/18/2016 Renal Nrg052 eGFR 59 ml/min/1.73m2 05/18/2016 Renal Tat440 B/C Ratio 14.3 Ratio 05/18/2016 Renal Xzq714 CALCIUM 9.3 mg/dL 05/18/2016 Renal Ooh646 PHOS 3.2 mg/dL 05/18/2016 Renal Fzz450 ALBUMIN 4.2 g/dL 05/18/2016 Random Urine Protein/Creatinine Ratio Xgp4028 U Prot 15.0 mg/dl 05/18/2016 Random Urine Protein/Creatinine Ratio Aow2083 U CREAT 141.0 mg/dL 05/18/2016 Random Urine Protein/Creatinine Ratio Eee4463 R MTP/Creat Ratio 0.11 05/18/2016 Urinalysis Ord28 [...] 85.8 fl 02/19/2016 Cbc With Differential Ord2 [place]% 9.5 % 02/19/2016 Cbc With Differential Ord2 [...] 1.91 K/ul 02/19/2016 Cbc With Differential Ord2 [place] ABS# 0.5 K/ul 02/19/2016 Cbc With Differential Ord2 Eos ABS# 0.2 K/ul 02/19/2016 Cbc With Differential Ord2 Baso ABS# 0.0 K/ul 02/19/2016 Cbc With Differential Ord2 New Analyzer Notice Please note new ref ranges starting 10-29-2015 due to implemntation of new five part differential hematolgy analyzer. 02/19/2016 Tsh Ord6 hTSH II 2.10 uIU/mL 02/19/2016 Comp Metabolic Bsx423 NA 138 mEq/L 02/19/2016 Comp Metabolic Ykt455 K 3.8 mEq/L 02/19/2016 Comp Metabolic Sow019 CL 103 mEq/L 02/19/2016 Comp Metabolic Enn791 CO2 28.0 mEq/L 02/19/2016 Comp Metabolic Eaq524 ANION GAP 11 02/19/2016 Comp Metabolic Mxg283 GLUCOSE 94 mg/dL 02/19/2016 Comp Metabolic Ipc060 Creat 1.0 mg/dL 02/19/2016 Comp Metabolic Uqi012 eGFR 75 ml/min/1.73m2 02/19/2016 Comp Metabolic Hgm321 BUN 18 mg/dL 02/19/2016 Comp Metabolic Slr463 B/C Ratio 17.6 Ratio 02/19/2016 Comp Metabolic Yfh545 CALCIUM 9.6 mg/dL 02/19/2016 Comp Metabolic Qih947 ALK PHOS 93 U/L 02/19/2016 Comp Metabolic Mer466 AST(SGOT) 23 U/L 02/19/2016 Comp Metabolic Jsb912 ALT(SGPT) 19 U/L 02/19/2016 Comp Metabolic Jrk821 BILI T 0.8 mg/dL 02/19/2016 Comp Metabolic Qut149 ALBUMIN 4.1 g/dL 02/19/2016 Comp Metabolic Soh518 TPRO 6.8 g/dL 02/19/2016 Comp Metabolic Hiz468 GLOB 2.7 g/dL 02/19/2016 Comp Metabolic Vse329 A/G Ratio 1.5 Ratio 02/19/2016 Comp Metabolic Jun041 Osmo 277 mOsmo 02/19/2016 Uric Acid Ord77 Uric A 6.0 mg/dL 02/19/2016 Total Psa Ord10 PSA 0.82 ng/mL 02/19/2016 Comp Metabolic Ouk612 NA 140 mEq/L 12/16/2015 Comp Metabolic Wwq651 K 4.0 mEq/L 12/16/2015 Comp Metabolic Hhe164 CL 105 mEq/L 12/16/2015 Comp Metabolic Fmm402 CO2 24.0 mEq/L 12/16/2015 Comp Metabolic Wev421 ANION GAP 15 12/16/2015 Comp Metabolic Qla504 GLUCOSE 85 mg/dL 12/16/2015 Comp Metabolic Seg986 Creat 1.2 mg/dL 12/16/2015 Comp Metabolic Jip810 eGFR 65 ml/min/1.73m2 12/16/2015 Comp Metabolic Jjd696 BUN 14 mg/dL 12/16/2015 Comp Metabolic Auk029 B/C Ratio 12.1 Ratio 12/16/2015 Comp Metabolic Nov818 CALCIUM 9.1 mg/dL 12/16/2015 Comp Metabolic Rya072 ALK PHOS 162 U/L 12/16/2015 Comp Metabolic Aev586 AST(SGOT) 14 U/L 12/16/2015 Comp Metabolic Dmm641 ALT(SGPT) 17 U/L 12/16/2015 Comp Metabolic Pve589 BILI T 1.0 mg/dL 12/16/2015 Comp Metabolic Ick851 ALBUMIN 3.4 g/dL 12/16/2015 Comp Metabolic Wgg706 TPRO 6.2 g/dL 12/16/2015 Comp Metabolic Jqx390 GLOB 2.9 g/dL 12/16/2015 Comp Metabolic Bux071 A/G Ratio 1.2 Ratio 12/16/2015 Comp Metabolic Sez623 Osmo 279 mOsmo 12/16/2015 Uric Acid Ord77 [...] 28.1 pg 12/16/2015 Cbc With Differential Ord2 [place]% 7.5 % 12/16/2015 Cbc With Differential Ord2 [...] 1.52 K/ul 12/16/2015 Cbc With Differential Ord2 [place] ABS# 0.4 K/ul 12/16/2015 Cbc With Differential [...] C/HDL 4.0 Ratio 07/21/2015 Urine Protein 24Hr Ckv008 U Prot 5.1 mg/dl 05/16/2015 Urine Protein 24Hr Vly609 U Prot24 71.5 mg/24hr 05/16/2015 Total Volume Urine Yrh402 TV/24hr 1400 ml 05/16/2015 Cbc With Differential [...] Differential Ord2 RDW 15.4 % 05/15/2015 Renal Lbb647 NA 135 mEq/L 05/15/2015 Renal Jpc307 K 3.9 mEq/L 05/15/2015 Renal Fcj533 CL 101 mEq/L 05/15/2015 Renal Owm623 CO2 27.0 mEq/L 05/15/2015 Renal Bwc207 ANION GAP 11 05/15/2015 Renal Asx191 Osmo 274 mOsmo 05/15/2015 Renal Obc287 GLUCOSE 132 mg/dL 05/15/2015 Renal Ehz534 BUN 19 mg/dL 05/15/2015 Renal Baq161 Creat 1.1 mg/dL 05/15/2015 Renal Mbi877 eGFR 67 ml/min/1.73m2 05/15/2015 Renal Kfb905 B/C Ratio 17.0 Ratio 05/15/2015 Renal Fkg706 CALCIUM 9.6 mg/dL 05/15/2015 Renal Jiz030 PHOS 3.0 mg/dL 05/15/2015 Renal Efr557 ALBUMIN 4.3 g/dL 05/15/2015 Total Psa Ord10 [...] accomodation 04/26/2017 None Full Exam - General 1995 Ears/Nose/Throat otoscopic exam Overall: external auditory canals clear 04/26/2017 None Full Exam - General 1994 Ears/Nose/Throat otoscopic exam Tympanic membrane: air-fluid level 04/26/2017 None Full Exam - General 1994 Ears/Nose/Throat otoscopic exam Tympanic membrane: tympanosclerosis 04/26/2017 None Full Exam - General 1995 Ears/Nose/Throat lips/teeth/gingiva Overall: benign lips 04/26/2017 None [...] General 1995 Ears/Nose/Throat otoscopic exam Tympanic membrane: air-fluid level [...] Codes Date ADMIN INFLUENZA VIRUS VAC CPT-4: [id number] 06/28/2016 FLU VACC PRSV FREE INC ANTIG CPT-4: 35685Ttumdrz 06/28/2016 TENIVAC TD VACCINE NO PRSRV 7/> IM CPT-4: 28190Uuenjmi 06/28/2016 OCCULT BLOOD FECES CPT-4: 30103Zpaweoy 02/19/2015 Vital Signs Date Vital 04/26/2017 Blood Pressure 1: 122/72 Code: 8480-6 BMI: 29.4 Code: 73750-3 Heart Rate 1: 85 bpm Height: 6' SpO2: 92% Weight: 217 lbs 01/25/2017 Blood Pressure 1: 118/78 Code: 8480-6 BMI: 29.4 Code: 78059-3 Heart Rate 1: 72 bpm Height: 6' SpO2: 94% Temperature: 36.9 (C) / 98.5 (F) Weight: 217 lbs 10/26/2016 Blood Pressure 1: 152/86 Code: 8480-6 BMI: 29.7 Code: 32305-6 Heart Rate 1: 58 bpm Height: 6' Weight: 219 lbs 09/27/2016 Blood Pressure 1: 138/80 Code: 8480-6 BMI: 29.4 Code: 53372-2 Heart Rate 1: 52 bpm Height: 6' SpO2: 98% Weight: 217 lbs 06/28/2016 Blood Pressure 1: 128/86 Code: 8480-6 BMI: 29.6 Code: 28237-1 Heart Rate 1: 69 bpm Height: 6' SpO2: 93% Weight: 218 lbs 04/27/2016 Blood Pressure 1: 118/82 Code: 8480-6 BMI: 29.3 Code: 99714-0 Heart Rate 1: 85 bpm Height: 6' SpO2: 98% Weight: 216 lbs 02/17/2016 Blood Pressure 1: 132/80 Code: 8480-6 BMI: 28.8 Code: 78722-4 Heart Rate 1: 94 bpm Height: 6' SpO2: 98% Weight: 212 lbs 01/20/2016 Blood Pressure 1: 120/70 Code: 8480-6 BMI: 29.7 Code: 10907-9 Heart Rate 1: 87 bpm Height: 6' SpO2: 92% Weight: 219 lbs 01/06/2016 Blood Pressure 1: 122/88 Code: 8480-6 BMI: 28.8 Code: 53971-0 Heart Rate 1: 83 bpm Height: 6' SpO2: 97% Weight: 212 lbs 12/16/2015 Blood Pressure 1: 98/62 Code: 8480-6 Heart Rate 1: 62 bpm Height: 6' SpO2: 90% Weight: 11/27/2015 Blood Pressure 1: 110/80 Code: 8480-6 Blood Pressure 1: 90/64 Code: 8480-6 Heart Rate 1: 91 bpm Height: 6' SpO2: 92% Weight: 07/30/2015 Blood Pressure 1: 112/82 Code: 8480-6 BMI: 30.5 Code: 65312-4 Heart Rate 1: 82 bpm Height: 6' SpO2: 92% Weight: 225 lbs 06/09/2015 Blood Pressure 1: 130/76 Code: 8480-6 BMI: 31.1 Code: 86874-6 Heart Rate 1: 65 bpm Height: 6' SpO2: 96% Weight: 229 lbs 04/29/2015 Blood Pressure 1: 118/78 Code: 8480-6 BMI: 30.7 Code: 22677-6 Heart Rate 1: 70 bpm Height: 6' Weight: 226 lbs 02/19/2015 Blood Pressure 1: 118/70 Code: 8480-6 BMI: 29.7 Code: 36429-7 Heart Rate 1: 68 bpm Height: 6' [...] data Encounters Encounter Performer Location Codes Date ([id number]) [id number] EST. PATIENT, LEVEL IV Diagnosis: Essential (primary) hypertension[ICD10: I10] Diagnosis: Major depressive disorder, recurrent, mild[ICD10: F33.0] Diagnosis: Mixed hyperlipidemia[ICD10: E78.2] Lesley Butcher MD, [facility] CPT- 4: 60017 04/26/2017 [id number]) 96466 EST. PATIENT, LEVEL IV Diagnosis: Essential (primary) hypertension[ICD10: I10] Diagnosis: Major depressive disorder, recurrent, mild[ICD10: F33.0] Diagnosis: Urge incontinence[ICD10: N39.41] Lesley Butcher MD, [facility] CPT-4: 93366 01/25/2017 [id number]) 08353 EST. PATIENT, LEVEL IV Diagnosis: Essential (primary) hypertension[ICD10: I10] Diagnosis: Major depressive disorder, recurrent, mild[ICD10: F33.0] Diagnosis: Urge incontinence[ICD10: N39.41] Lesley Butcher MD, [facility] CPT-4: 53624 10/26/2016 ([id number]) 14913 EST. 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 PATIENT, LEVEL IV Diagnosis: Essential (primary) hypertension[ICD10: I10] Diagnosis: Encounter for immunization[ICD10: Z23] Diagnosis: Laceration without foreign body of left forearm, initial encounter[ICD10: S51.812A] Diagnosis: Laceration without foreign body of right forearm, initial encounter[ICD10: S51.811A] Diagnosis: Major depressive disorder, recurrent, mild[ICD10: F33.0] Lesley Butcher MD, [facility] CPT-4: 97159 06/28/2016 ([id number]) 11508 EST. 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 PATIENT, LEVEL V Diagnosis: Essential (primary) hypertension[ICD10: I10] Diagnosis: Major depressive disorder, recurrent, mild[ICD10: F33.0] Diagnosis: Idiopathic gout, left ankle and foot[ICD10: M10.072] Diagnosis: Mixed hyperlipidemia[ICD10: E78.2] Lesley Butcher MD, [facility] CPT- 4: 62849 02/17/2016 ([id number]) 57732 EST. PATIENT, LEVEL IV Diagnosis: Idiopathic gout, left ankle and foot[ICD10: M10.072] Diagnosis: Major depressive disorder, single episode, unspecified[ICD10: F32.9] Diagnosis: Localized edema[ICD10: R60.0] Merline Butcher MD [facility] CPT-4: 59421 01/20/2016 13350 EST. PATIENT, LEVEL IV Diagnosis: Idiopathic gout, left ankle and foot[ICD10: M10.072] Diagnosis: Essential (primary) hypertension[ICD10: I10] Diagnosis: Major depressive disorder, single episode, unspecified[ICD10: F32.9] Lesley Butcher MD [facility] CPT-4: 70119 01/06/2016 18371 EST. PATIENT, LEVEL IV Diagnosis: Weakness[ICD10: R53.1] Diagnosis: Gout, unspecified[ICD10: M10.9] Diagnosis: Hypotension, unspecified[ICD10: I95.9] Lesley Butcher MD [facility] CPT-4: 17068 12/16/2015 ([id number]) Patient admitted to the hospital from clinic (NO CHARGE) Diagnosis: Hypoxemia[ICD10: R09.02] Diagnosis: Weakness[ICD10: R53.1] Diagnosis: Dyspnea, unspecified[ICD10: R06.00] Mady Butcher MD, [facility] CPT- 4: 89072Z 11/27/2015 ([id number]) 67918 EST. PATIENT, LEVEL III Diagnosis: Essential (primary) hypertension[ICD10: I10] Diagnosis: Gastro-esophageal reflux disease without esophagitis[ICD10: K21.9] Lesley Butcher MD [facility] CPT-4: 00379 07/30/2015 ([id number]) 95309 EST. PATIENT, LEVEL III Diagnosis: ESSENTIAL HYPERTENSION[ICD9: 401.9] Merline Butcher MD [facility] CPT-4: 63863 06/09/2015 ([id number]) 11448 EST. PATIENT, LEVEL III Diagnosis: ESSENTIAL HYPERTENSION[ICD9: 401.9] Lesley Butcher MD [facility] CPT- 4: 83608 04/29/2015 ([id number]) OFFICE/OUTPATIENT VISIT NEW Diagnosis: ESSENTIAL HYPERTENSION[ICD9: 401.9] Diagnosis: DEPRESSIVE DISORDER NEC[ICD9: 311] Diagnosis: Enlarged prostate[ICD9: 600.00] Diagnosis: Nasal inflammation due to allergen[ICD9: 477.9] Lesley Butcher MD [facility] CPT-4: 49406 02/19/2015 Plan of Care Planned Activity Notes [...] exposure. No change in current medications. 04/26/2017 Patient Education: Patient Medication Summary Completed [...] 10mg daily. 01/25/2017 Appointment: Lesley Butcher WPtel: [address] [place], [place] [phone] (30 min) [facility] 01/25/2017 Patient Education: Patient Medication Summary Completed [...] detrol LA 10/26/2016 Appointment: Lesley Butcher WPtel: [facility] (15 min) Moderate 10/26/2016 Patient Education: [...] retention occur. 09/27/2016 Appointment: Lesley Butcher WPtel: [id number] (15 min) Moderate 09/27/2016 Patient Education: [...] shelli andrea 06/28/2016 Appointment: Lesley Butcher WPtel: [id number] (15 min) Moderate 06/28/2016 Patient Education: [...] 1 month 02/17/2016 Appointment: Merline Rose [facility]Ptel[phone] (30 min) Complex 02/17/2016 Patient [...] Completed 12/16/2015 Appointment: Les[facility] Butcher [phone] [facility] (15 min) Moderate 12/04/2015 Appointment: Lesley Butcher [...] [phone] ([facility] min) Moderate 07/30/2015 Patient Education: [...] at home. 04/29/2015 Appointment: Lesley Butcher WPtel[facility] (15 min) Moderate 04/29/2015 Patient [...] eye drops-zaditor Menieres-increase dexamethasone x 1 month . Hypertension - [...]
--- OUTSIDE RECORDS SUMMARY | 2019-03-23 19:15 | XMS REPORT | CCD ---
Author Author [facility] Organization [facility] Address [address] [place] [address] Phone Care Team Providers Care Housekeeping Coordinator Name Role Phone PP Unavailable CCM Unavailable Summary Purpose Interface Exchange Insurance Providers Payer name Policy type / Coverage type Covered constitution party ID Effective Begin Date Effective End Date WPS Medicare Part B Medicare Part B [id number] Unknown Unknown [facility] Medicare Part B [id number] Unknown Unknown Family history Father Diagnosis Age At Onset Hypertension Unknown Coronary Artery Disease Unknown Mother Diagnosis Age At Onset Coronary Artery Disease Unknown Hypertension Unknown Social History Social History Element Codes Description Effective Dates Marital status Unknown 02/19/2015 Number of children Unknown 2 02/19/2015 Employment Unknown Retired 02/19/[address]: [id number] Has never smoked or chewed tobacco 02/19/2015 Alcohol history Unknown occasionally drinks alcohol 02/19/2015 Allergies, Adverse Reactions, Alerts Allergies, Adverse Reactions, Alerts data not found Past Medical History Illness Codes Condition Status Onset Date Resolved Date Essential (primary) hypertension ICD-9: 401.1 ICD-10: I10 Active 06/27/2016 Unknown Major depressive disorder, recurrent, 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 ICD-10: F33.0 Active 06/27/2016 Unknown Urge incontinence ICD-9: 788.31 ICD-10: N39.41 Active 09/27/2016 Unknown Benign prostatic hyperplasia without lower urinary tract symptoms ICD-9: 600.00 ICD-10: N40.0 Active 01/03/2017 Unknown Essential (primary) hypertension ICD-9: 401.9 ICD-10: I10 Active 02/18/2015 Unknown Mixed hyperlipidemia ICD- 9: 272.2 ICD-10: E78.2 Active 02/16/2016 Unknown Encounter for immunization ICD-9: V04.81 ICD-10: [...] 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 ICD-10: F33.0 06/27/2016 Active Urge incontinence ICD-9: 788.31 ICD-10: N39.41 09/27/2016 Active Benign prostatic hyperplasia without lower urinary tract symptoms ICD-9: 600.00 ICD-10: N40.0 01/03/2017 Active Essential (primary) hypertension ICD-9: 401.9 ICD-10: I10 02/18/2015 Active Mixed hyperlipidemia ICD- 9: 272.2 ICD-10: E78.2 02/16/2016 Active Encounter for immunization ICD-9: V04.81 ICD-10: [...] Fill Instructions dexamethasone 0.5 mg tablet RxNorm: 883865 TAKE ONE TABLET BY MOUTH ONCE DAILY 02/14/2017 04/14/2017 Active Flomax 0.4 mg capsule RxNorm: 959994 TAKE ONE CAPSULE BY MOUTH ONCE DAILY IN THE EVENING 02/14/2017 11/10/2017 Active pantoprazole 40 mg tablet,delayed release RxNorm: 879536 TAKE ONE TABLET BY MOUTH ONCE DAILY AT BEDTIME 02/14/2017 11/10/2017 Active oxybutynin chloride ER 10 mg tablet,extended release 24 hr RxNorm: 252667 1 Tablet(s) PO daily 01/25/2017 04/24/2017 Active dexamethasone 0.5 mg tablet RxNorm: 196479 TAKE ONE TABLET BY MOUTH ONCE DAILY 11/10/2016 12/09/2016 Inactive oxybutynin chloride ER 5 mg tablet,extended release 24 hr RxNorm: 116017 1 Tablet(s) PO daily 10/28/2016 10/27/2016 Inactive oxybutynin chloride ER 5 mg tablet,extended release 24 hr RxNorm: 822106 1 Tablet(s) PO daily 10/28/2016 01/24/2017 Inactive Detrol LA 2 mg capsule,extended release RxNorm: 781788 1 Capsule(s) PO QPM 10/26/2016 10/27/2016 Inactive clonazepam 1 mg tablet RxNorm: 406433 1 Tablet(s) PO QHS AND 1 TAB PO TID PRN 10/20/2016 04/17/2017 Active dexamethasone 0.5 mg tablet RxNorm: 070732 TAKE ONE TABLET BY MOUTH ONCE DAILY 10/06/2016 11/04/2016 Inactive allopurinol 100 mg tablet RxNorm: 690757 1 Tablet(s) PO daily 09/30/2016 09/24/2017 Active Vesicare 5 mg tablet RxNorm: 905676 1 Tablet(s) PO QPM 09/27/2016 12/12/2016 Inactive spironolactone 25 mg tablet RxNorm: 638353 1 Tablet(s) PO daily 08/06/2016 07/31/2017 Active citalopram 40 mg tablet RxNorm: 893730 1 Tablet(s) PO daily 06/28/2016 06/22/2017 Active iron ER 159 mg (45 mg iron) tablet,extended release RxNorm: 167402 1 Tablet(s) PO daily 04/27/2016 No Stop Date Active dexamethasone 0.5 mg tablet RxNorm: 229969 1/2 Tablet(s) PO daily 04/27/2016 No Stop Date Active Plavix 75 mg tablet RxNorm: 475699 1 Tablet(s) PO daily 04/27/2016 No Stop Date Active allopurinol 100 mg tablet RxNorm: 800039 1 Tablet(s) PO daily 04/27/2016 09/29/2016 Inactive clonazepam 1 mg tablet RxNorm: 323896 1 Tablet(s) PO QHS and 1 tab po TID prn 04/14/2016 10/07/2016 Inactive allopurinol 100 mg tablet RxNorm: 116059 1 Tablet(s) PO daily 02/17/2016 04/26/2016 Inactive citalopram 20 mg tablet RxNorm: 847877 1 Tablet(s) PO daily 01/20/2016 06/27/2016 Inactive Flomax 0.4 mg capsule RxNorm: 417196 1 Capsule(s) PO QPM 01/20/2016 01/13/2017 Inactive [SAVINGS FOR NON-COVERED DRUGS -- BIN:[id number], PCN: ASPROD1, Group: XXXXX, ID# XXXXXXX, Questions: . THIS IS NOT INSURANCE.] pantoprazole 40 mg tablet,delayed release RxNorm: 386162 1 Tablet(s) PO QHS 01/20/2016 01/13/2017 Inactive Colcrys 0.6 mg tablet RxNorm: 793908 1 Tablet(s) PO daily 01/06/2016 03/05/2016 Inactive take daily x 7 days then daily as needed for gout flair colchicine 0.6 mg tablet RxNorm: 897657 1 Tablet(s) PO BID 12/30/2015 01/01/2016 Inactive doxycycline hyclate 100 mg tablet RxNorm: 559469 1 Tablet(s) PO BID 12/19/2015 12/28/2015 Inactive doxycycline hyclate 100 mg tablet RxNorm: 037316 1 Tablet(s) PO BID 12/19/2015 12/18/2015 Inactive allopurinol 100 mg tablet RxNorm: 522659 1 Tablet(s) PO daily 12/16/2015 02/16/2016 Inactive colchicine 0.6 mg tablet RxNorm: 289078 Tablet(s) PO 1.2 mg PO in the morning and 0.6 mg at night for 2 days. 12/16/2015 12/29/2015 Inactive allopurinol 100 mg tablet RxNorm: 731984 1 Tablet(s) PO daily 12/16/2015 12/15/2015 Inactive Protonix 40 mg tablet,delayed release RxNorm: 032039 1 Tablet(s) PO daily 12/16/2015 01/14/2016 Inactive Bactrim DS 800 mg-160 mg tablet RxNorm: 124098 1 Tablet(s) PO BID 12/16/2015 12/18/2015 Inactive colchicine 0.6 mg tablet RxNorm: 687498 Tablet(s) PO 1.2 mg for the first dose and 0.6 mg an hour after 12/15/2015 12/15/2015 Inactive dexamethasone 0.5 mg tablet RxNorm: 233706 1 Tablet(s) PO 12/12/2015 02/09/2016 Inactive Plavix 75 mg tablet RxNorm: 935861 1 Tablet(s) PO every other day 12/12/2015 04/09/2016 Inactive nitroglycerin 0.4 mg sublingual tablet RxNorm: 845660 1 Tablet(s) SL x3 in 15 min as needed 12/12/2015 04/26/2016 Inactive clonazepam 1 mg tablet RxNorm: 924401 1 Tablet(s) PO QHS and 1 tab po TID prn 12/11/2015 12/03/2016 Inactive Keystone 5 mg-325 mg tablet RxNorm: 241800 1-2 Tablet(s) PO Q6 as needed 12/11/2015 09/26/2016 Inactive clonazepam 1 mg tablet RxNorm: 482579 1 Tablet(s) PO QHS and 1 tab po TID prn 12/04/2015 12/10/2015 Inactive Flomax 0.4 mg capsule RxNorm: 706449 1 Capsule(s) PO QPM 09/22/2015 01/19/2016 Inactive [SAVINGS FOR NON-COVERED DRUGS -- BIN:380043, PCN: ASPROD1, Group: XXXXX, ID# XXXXXXX, Questions: . THIS IS NOT INSURANCE.] Flomax 0.4 mg capsule RxNorm: 549591 1 Capsule(s) PO QPM 09/16/2015 09/21/2015 Inactive [SAVINGS FOR NON-COVERED DRUGS -- BIN:019512, PCN: ASPROD1, Group: XXXXX, ID# XXXXXXX, Questions: . THIS IS NOT INSURANCE.] clonazepam 1 mg tablet RxNorm: 514086 1 Tablet(s) PO QHS 08/29/2015 12/03/2015 Inactive coenzyme Q10 10 mg tablet RxNorm: 663267 1 Tablet(s) PO daily 07/30/2015 01/05/2016 Inactive spironolactone 25 mg tablet RxNorm: 717716 1 Tablet(s) PO daily 07/28/2015 07/21/2016 Inactive spironolactone 25 mg tablet RxNorm: 475744 1 Tablet(s) PO daily 07/22/2015 07/27/2015 Inactive clonazepam 1 mg tablet RxNorm: 215842 1 Tablet(s) PO QHS 05/23/2015 08/28/2015 Inactive losartan 25 mg tablet RxNorm: 778040 1 Tablet(s) PO daily 02/19/2015 03/20/2015 Inactive Flonase Allergy Relief 50 mcg/actuation nasal spray,suspension RxNorm: 1 Perry NASAL BID 02/19/2015 04/26/2016 Inactive [SAVINGS FOR NON-COVERED DRUGS -- BIN:[id number], PCN: ASPROD1, Group: XXXXX, ID# XXXXXXX, Questions: . THIS IS NOT INSURANCE.] Flomax 0.4 mg capsule RxNorm: 787019 1 Capsule(s) PO QPM 02/19/2015 09/15/2015 Inactive [SAVINGS FOR NON-COVERED DRUGS -- BIN:755132, PCN: ASPROD1, Group: XXXXX, ID# XXXXXXX, Questions: . THIS IS NOT INSURANCE.] citalopram 20 mg tablet RxNorm: 322166 1 Tablet(s) PO daily 02/19/2015 03/20/2015 Inactive atenolol 25 mg tablet RxNorm: 873481 1 Tablet(s) PO daily 02/19/2015 03/20/2015 Inactive Lipitor 20 mg tablet RxNorm: 276012 1 Tablet(s) PO daily 02/19/2015 03/20/2015 Inactive glucosamine HCl 1,500 mg tablet RxNorm: 190356 1 Tablet(s) with 1200 mg chrondroitin PO daily No Start Date Active krill oil oral RxNorm: 84257 oral No Start Date Active Vitamin B-6 100 mg tablet RxNorm: 054103 1 Tablet(s) PO TID No Start Date Active Osteo Bi-Flex oral RxNorm: 7755843 oral No Start Date Active aspirin 81 mg tablet,delayed release RxNorm: 032410 1 Tablet(s) PO daily No Start Date Active Aleve 220 mg tablet RxNorm: 415730 Tablet(s) PO as needed No Start Date Active Vitamin D3 1,000 unit capsule RxNorm: 737523 2 Capsule(s) PO daily No Start Date Active Centrum Complete oral RxNorm: 66910 oral No Start Date Active ranitidine 150 mg tablet RxNorm: 899961 1 Tablet(s) PO TID No Start Date 12/11/2015 Inactive Keystone 5 mg-325 mg tablet RxNorm: 717944 1-2 Tablet(s) PO Q6 as needed No Start Date 12/10/2015 Inactive spironolactone 25 mg tablet RxNorm: 103271 1 Tablet(s) PO daily No Start Date 07/21/2015 Inactive Vitamin D3 oral RxNorm: 2418 oral No Start Date 02/17/2016 Inactive clonazepam 1 mg tablet RxNorm: 640800 1 Tablet(s) PO daily No Start Date 05/22/2015 Inactive Glucosamine oral RxNorm: 4845 oral No Start Date 04/26/2016 Inactive Plavix 75 mg tablet RxNorm: 361377 1 Tablet(s) PO every other day No Start Date 12/11/2015 Inactive iron ER 159 mg (45 mg iron) tablet,extended release RxNorm: 147706 1 Tablet(s) PO BID No Start Date 04/26/2016 Inactive amlodipine 5 mg tablet RxNorm: 836628 1 Tablet(s) PO daily No Start Date 01/05/2016 Inactive dexamethasone 0.5 mg tablet RxNorm: 317893 1 Tablet(s) PO No Start Date 12/11/2015 Inactive colchicine 0.6 mg tablet RxNorm: 112681 Tablet(s) PO 1.2 mg for the first dose and 0.6 mg an hour after No Start Date 12/14/2015 Inactive nitroglycerin 0.4 mg sublingual tablet RxNorm: 005702 1 Tablet(s) SL x3 in 15 min as needed No Start Date 12/11/2015 Inactive Fish Oil 1,000 mg capsule RxNorm: 1 Capsule(s) PO daily No Start Date 04/26/2016 Inactive Ecotrin Low Strength 81 mg tablet,enteric coated RxNorm: 2491626 1 Tablet(s) PO daily No Start Date 09/27/2016 Inactive Medication Administered No Medication Administered data Immunizations Vaccine Codes Date Status Influenza CVX: 141 06/28/2016 completed Tetanus, Diptheria, Pertussis CVX: 113 06/28/2016 completed Tetanus/Diptheria CVX: 113 06/28/2016 completed Pneumococcal Unknown 08/04/2015 completed Influenza CVX: 141 04/16/2014 completed Pneumococcal CVX: 33 05/15/2008 completed Assessments Condition Codes Effective Dates Urge incontinence ICD-10: N39.41 ICD-9: 788.31 01/25/2017 Major depressive disorder, recurrent, mild ICD-10: F33.0 ICD-9: 296.31 01/25/2017 Essential (primary) hypertension ICD-10: I10 ICD-9: 401.1 01/25/2017 Essential (primary) hypertension ICD-10: I10 ICD-9: 401.9 01/03/2017 Mixed hyperlipidemia ICD-10: E78.2 ICD-9: 272.2 01/03/2017 Benign prostatic hyperplasia without lower urinary [...] Visit Reason For Visit Effective Dates Notes earache 01/25/2017 earache 10/26/2016 hypertension 09/27/2016 hypertension [...] 89.6 fl 04/11/2017 Cbc With Differential Ord2 [place]% 8.1 % 04/11/2017 Cbc With Differential Ord2 [...] 1.91 K/ul 04/11/2017 Cbc With Differential Ord2 [place] ABS# 0.5 K/ul 04/11/2017 Cbc With Differential Ord2 Eos ABS# 0.2 K/ul 04/11/2017 Cbc With Differential Ord2 Baso ABS# 0.0 K/ul 04/11/2017 Comp Metabolic Whv957 NA 140 mEq/L 04/11/2017 Comp Metabolic Xka863 K 4.1 mEq/L 04/11/2017 Comp Metabolic Ptr653 CL 105 mEq/L 04/11/2017 Comp Metabolic Fzi953 CO2 26.0 mEq/L 04/11/2017 Comp Metabolic Kor939 ANION GAP 13 04/11/2017 Comp Metabolic Tct740 GLUCOSE 88 mg/dL 04/11/2017 Comp Metabolic Hkm438 Creat 1.1 mg/dL 04/11/2017 Comp Metabolic Quq398 eGFR 66 ml/min/1.73m2 04/11/2017 Comp Metabolic Tit168 BUN 18 mg/dL 04/11/2017 Comp Metabolic Vkq432 B/C Ratio 15.9 Ratio 04/11/2017 Comp Metabolic Auh565 CALCIUM 9.0 mg/dL 04/11/2017 Comp Metabolic Zai319 ALK PHOS 72 U/L 04/11/2017 Comp Metabolic Emj524 AST(SGOT) 22 U/L 04/11/2017 Comp Metabolic Ojw170 ALT(SGPT) 26 U/L 04/11/2017 Comp Metabolic Voe390 BILI T 1.0 mg/dL 04/11/2017 Comp Metabolic Qvj155 ALBUMIN 4.0 g/dL 04/11/2017 Comp Metabolic Xyu168 TPRO 6.4 g/dL 04/11/2017 Comp Metabolic Ihp645 GLOB 2.4 g/dL 04/11/2017 Comp Metabolic Asf341 A/G Ratio 1.6 Ratio 04/11/2017 Comp Metabolic Liu811 Osmo 281 mOsmo 04/11/2017 Vitamin D 25 Oh Hol7003 VITAMIN D, 25 HYDROXY 65.52 ng/mL 05/19/2016 [...] 28.5 pg 05/18/2016 Cbc With Differential Ord2 [place]% 7.2 % 05/18/2016 Cbc With Differential Ord2 MCHC 33.5 pg 05/18/2016 Cbc With Differential Ord2 Eos% 3.1 % 05/18/2016 Cbc With Differential Ord2 Baso% 0.2 % 05/18/2016 Cbc With Differential Ord2 PLT 222 K/ul 05/18/2016 Cbc With Differential Ord2 RDW 15.8 % 05/18/2016 Cbc With Differential Ord2 Neut ABS# 3.40 K/ul 05/18/2016 Cbc With Differential Ord2 Lymph ABS# 1.80 K/ul 05/18/2016 Cbc With Differential Ord2 [place] ABS# 0.4 K/ul 05/18/2016 Cbc With Differential Ord2 Eos ABS# 0.2 K/ul 05/18/2016 Cbc With Differential Ord2 Baso ABS# 0.0 K/ul 05/18/2016 Magnesium Ord90 Mag 2.0 mg/dL 05/18/2016 Renal Fak178 NA 139 mEq/L 05/18/2016 Renal Rhf042 K 4.0 mEq/L 05/18/2016 Renal Tmf594 CL 104 mEq/L 05/18/2016 Renal Mgn300 CO2 27.0 mEq/L 05/18/2016 Renal Hyj811 ANION GAP 12 05/18/2016 Renal Znd133 Osmo 279 mOsmo 05/18/2016 Renal Bcg764 GLUCOSE 91 mg/dL 05/18/2016 Renal Tck042 BUN 18 mg/dL 05/18/2016 Renal Mbj466 Creat 1.3 mg/dL 05/18/2016 Renal Isf075 eGFR 59 ml/min/1.73m2 05/18/2016 Renal Hso878 B/C Ratio 14.3 Ratio 05/18/2016 Renal Iyz591 CALCIUM 9.3 mg/dL 05/18/2016 Renal Lec546 PHOS 3.2 mg/dL 05/18/2016 Renal Cyw747 ALBUMIN 4.2 g/dL 05/18/2016 Random Urine Protein/Creatinine Ratio Jpl6442 U Prot 15.0 mg/dl 05/18/2016 Random Urine Protein/Creatinine Ratio Cuw7553 U CREAT 141.0 mg/dL 05/18/2016 Random Urine Protein/Creatinine Ratio Hgp0298 R MTP/Creat Ratio 0.11 05/18/2016 Urinalysis Ord28 [...] 28.5 pg 02/19/2016 Cbc With Differential Ord2 [place]% 9.5 % 02/19/2016 Cbc With Differential Ord2 Eos% 3.5 % 02/19/2016 Cbc With Differential Ord2 MCHC 33.2 pg 02/19/2016 Cbc With Differential Ord2 Baso% 0.2 % 02/19/2016 Cbc With Differential Ord2 PLT 221 K/ul 02/19/2016 Cbc With Differential Ord2 RDW 16.4 % 02/19/2016 Cbc With Differential Ord2 Neut ABS# 2.84 K/ul 02/19/2016 Cbc With Differential Ord2 Lymph ABS# 1.91 K/ul 02/19/2016 Cbc With Differential Ord2 [place] ABS# 0.5 K/ul 02/19/2016 Cbc With Differential Ord2 Eos ABS# 0.2 K/ul 02/19/2016 Cbc With Differential Ord2 Baso ABS# 0.0 K/ul 02/19/2016 Cbc With Differential Ord2 New Analyzer Notice Please note new ref ranges starting 10-29-2015 due to implemntation of new five part differential hematolgy analyzer. 02/19/2016 Tsh Ord6 hTSH II 2.10 uIU/mL 02/19/2016 Comp Metabolic Bnz799 NA 138 mEq/L 02/19/2016 Comp Metabolic Pre057 K 3.8 mEq/L 02/19/2016 Comp Metabolic Fam629 CL 103 mEq/L 02/19/2016 Comp Metabolic Lbr661 CO2 28.0 mEq/L 02/19/2016 Comp Metabolic Zoe779 ANION GAP 11 02/19/2016 Comp Metabolic Emp588 GLUCOSE 94 mg/dL 02/19/2016 Comp Metabolic Cuw686 Creat 1.0 mg/dL 02/19/2016 Comp Metabolic Sto060 eGFR 75 ml/min/1.73m2 02/19/2016 Comp Metabolic Ndo969 BUN 18 mg/dL 02/19/2016 Comp Metabolic Fqt960 B/C Ratio 17.6 Ratio 02/19/2016 Comp Metabolic Lmd944 CALCIUM 9.6 mg/dL 02/19/2016 Comp Metabolic Sck090 ALK PHOS 93 U/L 02/19/2016 Comp Metabolic Flx780 AST(SGOT) 23 U/L 02/19/2016 Comp Metabolic Isw006 ALT(SGPT) 19 U/L 02/19/2016 Comp Metabolic Uof412 BILI T 0.8 mg/dL 02/19/2016 Comp Metabolic Lej141 ALBUMIN 4.1 g/dL 02/19/2016 Comp Metabolic Fbp640 TPRO 6.8 g/dL 02/19/2016 Comp Metabolic Fbo518 GLOB 2.7 g/dL 02/19/2016 Comp Metabolic Owd078 A/G Ratio 1.5 Ratio 02/19/2016 Comp Metabolic Dws180 Osmo 277 mOsmo 02/19/2016 Uric Acid Ord77 Uric A 6.0 mg/dL 02/19/2016 Total Psa Ord10 PSA 0.82 ng/mL 02/19/2016 Comp Metabolic Fgr737 NA 140 mEq/L 12/16/2015 Comp Metabolic Vtp579 K 4.0 mEq/L 12/16/2015 Comp Metabolic Zcc960 CL 105 mEq/L 12/16/2015 Comp Metabolic Vrg885 CO2 24.0 mEq/L 12/16/2015 Comp Metabolic Gce805 ANION GAP 15 12/16/2015 Comp Metabolic Bnl115 GLUCOSE 85 mg/dL 12/16/2015 Comp Metabolic Bke885 Creat 1.2 mg/dL 12/16/2015 Comp Metabolic Zma576 eGFR 65 ml/min/1.73m2 12/16/2015 Comp Metabolic Vlp530 BUN 14 mg/dL 12/16/2015 Comp Metabolic Hrp546 B/C Ratio 12.1 Ratio 12/16/2015 Comp Metabolic Nit963 CALCIUM 9.1 mg/dL 12/16/2015 Comp Metabolic Sfd315 ALK PHOS 162 U/L 12/16/2015 Comp Metabolic Hcz690 AST(SGOT) 14 U/L 12/16/2015 Comp Metabolic Ecb749 ALT(SGPT) 17 U/L 12/16/2015 Comp Metabolic Kqr376 BILI T 1.0 mg/dL 12/16/2015 Comp Metabolic Ziq952 ALBUMIN 3.4 g/dL 12/16/2015 Comp Metabolic Uls088 TPRO 6.2 g/dL 12/16/2015 Comp Metabolic Beo363 GLOB 2.9 g/dL 12/16/2015 Comp Metabolic Nfw774 A/G Ratio 1.2 Ratio 12/16/2015 Comp Metabolic Web446 Osmo 279 mOsmo 12/16/2015 Uric Acid Ord77 [...] 28.1 pg 12/16/2015 Cbc With Differential Ord2 [place]% 7.5 % 12/16/2015 Cbc With Differential Ord2 [...] 1.52 K/ul 12/16/2015 Cbc With Differential Ord2 [place] ABS# 0.4 K/ul 12/16/2015 Cbc With Differential [...] C/HDL 4.0 Ratio 07/21/2015 Total Volume Urine Arl010 TV/24hr 1400 ml 05/16/2015 Urine Protein 24Hr Nhm729 U Prot 5.1 mg/dl 05/16/2015 Urine Protein 24Hr Boy450 U Prot24 71.5 mg/24hr 05/16/2015 Cbc With [...] Differential Ord2 RDW 15.4 % 05/15/2015 Renal Gtg087 NA 135 mEq/L 05/15/2015 Renal Ovb539 K 3.9 mEq/L 05/15/2015 Renal Ase407 CL 101 mEq/L 05/15/2015 Renal Vip162 CO2 27.0 mEq/L 05/15/2015 Renal Mqu353 ANION GAP 11 05/15/2015 Renal Ygj667 Osmo 274 mOsmo 05/15/2015 Renal Bej178 GLUCOSE 132 mg/dL 05/15/2015 Renal Htu642 BUN 19 mg/dL 05/15/2015 Renal Rzq481 Creat 1.1 mg/dL 05/15/2015 Renal Uew529 eGFR 67 ml/min/1.73m2 05/15/2015 Renal Jhd242 B/C Ratio 17.0 Ratio 05/15/2015 Renal Kpf889 CALCIUM 9.6 mg/dL 05/15/2015 Renal Cib005 PHOS 3.0 mg/dL 05/15/2015 Renal Cvz783 ALBUMIN 4.3 g/dL 05/15/2015 Total Psa Ord10 PSA 0.70 ng/mL 05/15/2015 Review of Systems System Result Effective Dates Constitutional No chills 01/25/2017 Constitutional No diaphoresis [...] Codes Date ADMIN INFLUENZA VIRUS VAC CPT-4: [id number] 06/28/2016 FLU VACC PRSV FREE INC ANTIG CPT-4: 35167Iyhqttg 06/28/2016 TENIVAC TD VACCINE NO PRSRV 7/> IM CPT-4: 49740Gtcjdsl 06/28/2016 OCCULT BLOOD FECES CPT-4: 76642Ltjouch 02/19/2015 Vital Signs Date Vital 01/25/2017 Blood Pressure 1: 118/78 Code: 8480-6 BMI: 29.4 Code: 75449-5 Heart Rate 1: 72 bpm Height: 6' SpO2: 94% Temperature: 36.9 (C) / 98.5 (F) Weight: 217 lbs 10/26/2016 Blood Pressure 1: 152/86 Code: 8480-6 BMI: 29.7 Code: 50196-0 Heart Rate 1: 58 bpm Height: 6' Weight: 219 lbs 09/27/2016 Blood Pressure 1: 138/80 Code: 8480-6 BMI: 29.4 Code: 87593-6 Heart Rate 1: 52 bpm Height: 6' SpO2: 98% Weight: 217 lbs 06/28/2016 Blood Pressure 1: 128/86 Code: 8480-6 BMI: 29.6 Code: 83638-4 Heart Rate 1: 69 bpm Height: 6' SpO2: 93% Weight: 218 lbs 04/27/2016 Blood Pressure 1: 118/82 Code: 8480-6 BMI: 29.3 Code: 46032-8 Heart Rate 1: 85 bpm Height: 6' SpO2: 98% Weight: 216 lbs 02/17/2016 Blood Pressure 1: 132/80 Code: 8480-6 BMI: 28.8 Code: 12219-8 Heart Rate 1: 94 bpm Height: 6' SpO2: 98% Weight: 212 lbs 01/20/2016 Blood Pressure 1: 120/70 Code: 8480-6 BMI: 29.7 Code: 58679-6 Heart Rate 1: 87 bpm Height: 6' SpO2: 92% Weight: 219 lbs 01/06/2016 Blood Pressure 1: 122/88 Code: 8480-6 BMI: 28.8 Code: 42817-8 Heart Rate 1: 83 bpm Height: 6' SpO2: 97% Weight: 212 lbs 12/16/2015 Blood Pressure 1: 98/62 Code: 8480-6 Heart Rate 1: 62 bpm Height: 6' SpO2: 90% Weight: 11/27/2015 Blood Pressure 1: 110/80 Code: 8480-6 Blood Pressure 1: 90/64 Code: 8480-6 Heart Rate 1: 91 bpm Height: 6' SpO2: 92% Weight: 07/30/2015 Blood Pressure 1: 112/82 Code: 8480-6 BMI: 30.5 Code: 66918-5 Heart Rate 1: 82 bpm Height: 6' SpO2: 92% Weight: 225 lbs 06/09/2015 Blood Pressure 1: 130/76 Code: 8480-6 BMI: 31.1 Code: 78760-2 Heart Rate 1: 65 bpm Height: 6' SpO2: 96% Weight: 229 lbs 04/29/2015 Blood Pressure 1: 118/78 Code: 8480-6 BMI: 30.7 Code: 72639-8 Heart Rate 1: 70 bpm Height: 6' Weight: 226 lbs 02/19/2015 Blood Pressure 1: 118/70 Code: 8480-6 BMI: 29.7 Code: 10666-4 Heart Rate 1: 68 bpm Height: 6' Weight: 219 lbs Functional Status No Functional Status data History of Present Illness Symptom Name Status Result Effective Date Notes earache Location both ears 01/25/2017 None hypertension [...] data Encounters Encounter Performer Location Codes Date ([id number]) [id number] EST. PATIENT, LEVEL IV Diagnosis: Essential (primary) hypertension[ICD10: I10] Diagnosis: Major depressive disorder, recurrent, mild[ICD10: F33.0] Diagnosis: Urge incontinence[ICD10: N39.41] Lesley Butcher MD, [facility] CPT-4: 59375 01/25/2017 ([id number]) 54756 EST. PATIENT, LEVEL IV Diagnosis: Essential (primary) hypertension[ICD10: I10] Diagnosis: Major depressive disorder, recurrent, mild[ICD10: F33.0] Diagnosis: Urge incontinence[ICD10: N39.41] Lesley Butcher MD, [facility] CPT-4: 91670 10/26/2016 ([id number]) 83213 EST. PATIENT, LEVEL III Diagnosis: Essential (primary) hypertension[ICD10: I10] Diagnosis: Major depressive disorder, recurrent, mild[ICD10: F33.0] Diagnosis: Urge incontinence[ICD10: N39.41] Lesley Butcher MD, [facility] CPT-4: 03964 09/27/2016 ([id number]) 34979 EST. PATIENT, LEVEL IV Diagnosis: Essential (primary) hypertension[ICD10: I10] Diagnosis: Encounter for immunization[ICD10: Z23] Diagnosis: Laceration without foreign body of left forearm, initial encounter[ICD10: S51.812A] Diagnosis: Laceration without foreign body of right forearm, initial encounter[ICD10: S51.811A] Diagnosis: Major depressive disorder, recurrent, mild[ICD10: F33.0] Lesley Butcher MD, [facility] CPT-4: 73690 06/28/2016 ([id number]) 66088 EST. 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 PATIENT, LEVEL V Diagnosis: Essential (primary) hypertension[ICD10: I10] Diagnosis: Major depressive disorder, recurrent, mild[ICD10: F33.0] Diagnosis: Idiopathic gout, left ankle and foot[ICD10: M10.072] Diagnosis: Mixed hyperlipidemia[ICD10: E78.2] Lesley Butcher MD, [facility] CPT- 4: 84382 02/17/2016 ([id number]) 76146 EST. PATIENT, LEVEL IV Diagnosis: Idiopathic gout, left ankle and foot[ICD10: M10.072] Diagnosis: Major depressive disorder, single episode, unspecified[ICD10: F32.9] Diagnosis: Localized edema[ICD10: R60.0] Merline Butcher MD, [facility] CPT-4: 40299 01/20/2016 [id number] EST. PATIENT, LEVEL IV Diagnosis: Idiopathic gout, left ankle and foot[ICD10: M10.072] Diagnosis: Essential (primary) hypertension[ICD10: I10] Diagnosis: Major depressive disorder, single episode, unspecified[ICD10: F32.9] Lesley Butcher MD, [facility] CPT-4: 63417 01/06/2016 [id number] EST. PATIENT, LEVEL IV Diagnosis: Weakness[ICD10: R53.1] Diagnosis: Gout, unspecified[ICD10: M10.9] Diagnosis: Hypotension, unspecified[ICD10: I95.9] Lesley Butcher MD, [facility] CPT-4: 65599 12/16/2015 ([id number]) Patient admitted to the hospital from clinic (NO CHARGE) Diagnosis: Hypoxemia[ICD10: R09.02] Diagnosis: Weakness[ICD10: R53.1] Diagnosis: Dyspnea, unspecified[ICD10: R06.00] Mady Butcher MD, [facility] CPT- 4: 23522U 11/27/2015 ([id number]) [id number] EST. PATIENT, LEVEL III Diagnosis: Essential (primary) hypertension[ICD10: I10] Diagnosis: Gastro-esophageal reflux disease without esophagitis[ICD10: K21.9] Lesley Butcher MD, [facility] CPT-4: 26623 07/30/2015 ([id number]) [id number] EST. PATIENT, LEVEL III Diagnosis: ESSENTIAL HYPERTENSION[ICD9: 401.9] Merline Butcher MD, [facility] CPT-4: 32543 06/09/2015 ([id number]) 91917 EST. PATIENT, LEVEL III Diagnosis: ESSENTIAL HYPERTENSION[ICD9: 401.9] Lesley Butcher MD, [facility] CPT- 4: 73464 04/29/2015 ([id number]) OFFICE/OUTPATIENT VISIT NEW Diagnosis: ESSENTIAL HYPERTENSION[ICD9: 401.9] Diagnosis: DEPRESSIVE DISORDER NEC[ICD9: 311] Diagnosis: Enlarged prostate[ICD9: 600.00] Diagnosis: Nasal inflammation due to allergen[ICD9: 477.9] Lesley Butcher MD, [facility] CPT-4: 75713 02/19/2015 Plan of Care Planned Activity Notes [...] daily. 01/25/2017 Appointment: Lesley Butcher WPtel: [phone] [id number] (30 min) Complex 01/25/2017 Patient Education: [...] [place] 10/26/2016 Appointment: Lesley Butcher WPtel: [phone] [facility] (15 min) Moderate 10/26/2016 Patient Education: [...] retention occur. 09/27/2016 Appointment: Lesley Butcher WPtel: [facility] (15 min) Moderate 09/27/2016 Patient Education: [...] and[place] 06/28/2016 Appointment: [phone] [place] (15 min) Moderate 06/28/2016 Patient Education: [...] 1 month 02/17/2016 Appointment: Merline Rose WPtel: [address] [place], [place] [phone] (30 min) Complex 02/17/2016 Patient Education: Patient [...] Completed 12/16/2015 Appointment: Lesley Butcher WPtel: [phone] [facility] (15 min) Moderate 12/04/2015 Appointment: Lesley Butcher WPtel: [facility] (15 min) Moderate 12/02/2015 Visit Plan: [...] PHARMACY 07/30/2015 Appointment: Lesley Butcher WPtel: [phone] [facility] (15 min) Moderate 07/30/2015 Patient Education: Patient [...] at home. 04/29/2015 Appointment: Lesley Butcher WPtel: [address] [facility] (15 min) Moderate 04/29/2015 Patient Education: [...]
--- OUTSIDE RECORDS SUMMARY | 2019-03-23 19:20 | XMS REPORT | CCD ---
Author Author [facility] Organization [facility] Address [address] [place] [address] Phone Care Team Providers Care Bolt Header Name Role Phone PP Unavailable CCM Unavailable Summary Purpose Interface Exchange Insurance Providers Payer name Policy type / Coverage type Covered constitution party ID Effective Begin Date Effective End Date WPS Medicare Part B Medicare Part B [id number] 2018 Unknown [facility] Medicare Part B [id number] 2018 Unknown Family history Father Diagnosis Age At Onset Hypertension Unknown Coronary Artery Disease Unknown Sister Diagnosis Age At Onset Heart disease Unknown Mother Diagnosis Age At Onset Coronary Artery Disease Unknown Hypertension Unknown Social History Social History Element Codes Description Effective Dates Marital status Unknown 02/19/2015 Number of children Unknown 2 02/19/2015 Employment Unknown Retired 02/19/[address]: 114760131 Has never smoked or chewed tobacco 02/19/2015 Alcohol history Unknown occasionally drinks alcohol 02/19/2015 Allergies, Adverse Reactions, Alerts Substance Reaction Codes Entered Date Inactivated Date Status bactrim RxNorm: 511893 12/19/2015 No Inactive Date Active ciprofloxacin RxNorm: 19413 02/18/2015 No Inactive Date Active Past Medical History Illness Codes Condition Status Onset Date Resolved Date Essential (primary) hypertension ICD-9: 401.1 ICD-10: I10 Active 06/27/2016 Unknown Frequency of micturition ICD-9: 788.41 ICD-10: [...] hypertension ICD-9: 401.1 ICD-10: I10 06/27/2016 Active Frequency of micturition ICD-9: 788.41 ICD-10: [...] Start Date Stop Date Status Fill Instructions losartan 50 mg tablet RxNorm: 287013 1 Tablet(s) PO daily 02/16/2019 02/10/2020 Active Requip 0.25 mg tablet RxNorm: 432439 1 Tablet(s) PO QHS 01/29/2019 01/23/2020 Active Flomax 0.4 mg capsule RxNorm: 095938 TAKE 1 CAPSULE BY MOUTH ONCE DAILY IN THE EVENING 01/25/2019 No Stop Date Active Requip 0.25 mg tablet RxNorm: 751193 1 Tablet(s) PO QHS 2019 01/28/2019 Inactive pantoprazole 40 mg tablet,delayed release RxNorm: 115922 TAKE ONE TABLET BY MOUTH ONCE DAILY AT BEDTIME 11/27/2018 No Stop Date Active atorvastatin 40 mg tablet RxNorm: 260246 1 Tablet(s) PO daily 09/26/2018 10/25/2018 Inactive dexamethasone 0.5 mg tablet RxNorm: 364194 TAKE 1 TABLET BY MOUTH ONCE DAILY 08/29/2018 No Stop Date Active clonazepam 1 mg tablet RxNorm: 664303 1/2 Tablet(s) PO QHS 08/24/2018 12/21/2018 Inactive allopurinol 100 mg tablet RxNorm: 394188 TAKE ONE TABLET BY MOUTH ONCE DAILY 08/03/2018 No Stop Date Active citalopram 40 mg tablet RxNorm: 015394 TAKE ONE TABLET BY MOUTH ONCE DAILY 06/13/2018 No Stop Date Active Kenalog 40 mg/mL suspension for injection RxNorm: 7665673 Milliliter(s) Inj 06/12/2018 06/12/2018 Inactive clonazepam 1 mg tablet RxNorm: 678254 1 Tablet(s) PO QHS 06/12/2018 08/23/2018 Inactive clonazepam 1 mg tablet RxNorm: 646965 1/2 Tablet(s) TAKE ONE TABLET BY MOUTH ONCE DAILY AT BEDTIME AND ONE TABLET THREE TIMES DAILY NEEDED 05/24/2018 06/11/2018 Inactive citalopram 40 mg tablet RxNorm: 210271 1/2 Tablet(s) TAKE ONE TABLET BY MOUTH ONCE DAILY 05/24/2018 09/25/2018 Inactive losartan 50 mg tablet RxNorm: 187636 1/2 Tablet(s) PO daily 05/24/2018 02/15/2019 Inactive spironolactone 25 mg tablet RxNorm: 159139 TAKE ONE TABLET BY MOUTH ONCE DAILY 05/22/2018 No Stop Date Active dexamethasone 0.5 mg tablet RxNorm: 808048 TAKE ONE TABLET BY MOUTH ONCE DAILY 02/21/2018 08/28/2018 Inactive Flomax 0.4 mg capsule RxNorm: 446679 TAKE ONE CAPSULE BY MOUTH ONCE DAILY IN THE EVENING 12/19/2017 01/24/2019 Inactive Tamiflu 75 mg capsule RxNorm: 823743 1 Capsule(s) PO BID 12/08/2017 12/12/2017 Inactive clonazepam 1 mg tablet RxNorm: 876608 Tablet(s) TAKE ONE TABLET BY MOUTH ONCE DAILY AT BEDTIME AND ONE TABLET THREE TIMES DAILY NEEDED 11/28/2017 01/26/2018 Inactive pantoprazole 40 mg tablet,delayed release RxNorm: 709997 TAKE ONE TABLET BY MOUTH ONCE DAILY AT BEDTIME 11/07/2017 11/26/2018 Inactive allopurinol 100 mg tablet RxNorm: 089154 TAKE ONE TABLET BY MOUTH ONCE DAILY 10/03/2017 08/02/2018 Inactive pantoprazole 40 mg tablet,delayed release RxNorm: 142750 1 Tablet(s) PO BID 09/01/2017 05/28/2018 Inactive Vitamin B-6 100 mg tablet RxNorm: 563695 1 Tablet(s) PO daily 09/01/2017 06/11/2018 Inactive dutasteride 0.5 mg capsule RxNorm: 615130 1 Capsule(s) PO QPM 09/01/2017 06/11/2018 Inactive spironolactone 25 mg tablet RxNorm: 863568 TAKE ONE TABLET BY MOUTH ONCE DAILY 08/15/2017 05/21/2018 Inactive citalopram 40 mg tablet RxNorm: 902275 TAKE ONE TABLET BY MOUTH ONCE DAILY 08/08/2017 05/04/2018 Inactive dexamethasone 0.5 mg tablet RxNorm: 583088 TAKE ONE TABLET BY MOUTH ONCE DAILY 08/08/2017 11/05/2017 Inactive clonazepam 1 mg tablet RxNorm: 833193 TAKE ONE TABLET BY MOUTH ONCE DAILY AT BEDTIME AND ONE THREE TIMES DAILY NEEDED 05/12/2017 08/08/2017 Inactive clonazepam 1 mg tablet RxNorm: 086286 1 Tablet(s) PO QHS AND 1 TAB PO TID PRN 05/12/2017 05/13/2017 Inactive oxybutynin chloride ER 10 mg tablet,extended release 24 hr RxNorm: 220716 1 Tablet(s) PO daily 04/29/2017 08/02/2017 Inactive dexamethasone 0.5 mg tablet RxNorm: 545917 TAKE ONE TABLET BY MOUTH ONCE DAILY 02/14/2017 04/14/2017 Inactive Flomax 0.4 mg capsule RxNorm: 938799 TAKE ONE CAPSULE BY MOUTH ONCE DAILY IN THE EVENING 02/14/2017 11/10/2017 Inactive pantoprazole 40 mg tablet,delayed release RxNorm: 514839 TAKE ONE TABLET BY MOUTH ONCE DAILY AT BEDTIME 02/14/2017 08/31/2017 Inactive oxybutynin chloride ER 10 mg tablet,extended release 24 hr RxNorm: 359053 1 Tablet(s) PO daily 01/25/2017 04/24/2017 Inactive dexamethasone 0.5 mg tablet RxNorm: 623793 TAKE ONE TABLET BY MOUTH ONCE DAILY 11/10/2016 12/09/2016 Inactive oxybutynin chloride ER 5 mg tablet,extended release 24 hr RxNorm: 799428 1 Tablet(s) PO daily 10/28/2016 10/27/2016 Inactive oxybutynin chloride ER 5 mg tablet,extended release 24 hr RxNorm: 979500 1 Tablet(s) PO daily 10/28/2016 01/24/2017 Inactive Detrol LA 2 mg capsule,extended release RxNorm: 812988 1 Capsule(s) PO QPM 10/26/2016 10/27/2016 Inactive clonazepam 1 mg tablet RxNorm: 060217 1 Tablet(s) PO QHS AND 1 TAB PO TID PRN 10/20/2016 04/17/2017 Inactive dexamethasone 0.5 mg tablet RxNorm: 457880 TAKE ONE TABLET BY MOUTH ONCE DAILY 10/06/2016 11/04/2016 Inactive allopurinol 100 mg tablet RxNorm: 222004 1 Tablet(s) PO daily 09/30/2016 09/24/2017 Inactive Vesicare 5 mg tablet RxNorm: 384446 1 Tablet(s) PO QPM 09/27/2016 12/12/2016 Inactive spironolactone 25 mg tablet RxNorm: 944033 1 Tablet(s) PO daily 08/06/2016 07/31/2017 Inactive citalopram 40 mg tablet RxNorm: 940080 1 Tablet(s) PO daily 06/28/2016 06/22/2017 Inactive iron ER 159 mg (45 mg iron) tablet,extended release RxNorm: 215465 1 Tablet(s) PO daily 04/27/2016 08/31/2017 Inactive dexamethasone 0.5 mg tablet RxNorm: 004758 1/2 Tablet(s) PO daily 04/27/2016 02/20/2018 Inactive allopurinol 100 mg tablet RxNorm: 664227 1 Tablet(s) PO daily 04/27/2016 09/29/2016 Inactive Plavix 75 mg tablet RxNorm: 310848 1 Tablet(s) PO daily 04/27/2016 02/11/2019 Inactive clonazepam 1 mg tablet RxNorm: 032324 1 Tablet(s) PO QHS and 1 tab po TID prn 04/14/2016 10/07/2016 Inactive allopurinol 100 mg tablet RxNorm: 667404 1 Tablet(s) PO daily 02/17/2016 04/26/2016 Inactive citalopram 20 mg tablet RxNorm: 993956 1 Tablet(s) PO daily 01/20/2016 06/27/2016 Inactive Flomax 0.4 mg capsule RxNorm: 957401 1 Capsule(s) PO QPM 01/20/2016 01/13/2017 Inactive [SAVINGS FOR NON-COVERED DRUGS -- BIN:[id number], PCN: ASPROD1, Group: XXXXX, ID# XXXXXXX, Questions: . THIS IS NOT INSURANCE.] pantoprazole 40 mg tablet,delayed release RxNorm: 300963 1 Tablet(s) PO QHS 01/20/2016 01/13/2017 Inactive Colcrys 0.6 mg tablet RxNorm: 117303 1 Tablet(s) PO daily 01/06/2016 03/05/2016 Inactive take daily x 7 days then daily as needed for gout flair colchicine 0.6 mg tablet RxNorm: 967074 1 Tablet(s) PO BID 12/30/2015 01/01/2016 Inactive doxycycline hyclate 100 mg tablet RxNorm: 800228 1 Tablet(s) PO BID 12/19/2015 12/28/2015 Inactive doxycycline hyclate 100 mg tablet RxNorm: 318482 1 Tablet(s) PO BID 12/19/2015 12/18/2015 Inactive allopurinol 100 mg tablet RxNorm: 606368 1 Tablet(s) PO daily 12/16/2015 02/16/2016 Inactive colchicine 0.6 mg tablet RxNorm: 054148 Tablet(s) PO 1.2 mg PO in the morning and 0.6 mg at night for 2 days. 12/16/2015 12/29/2015 Inactive allopurinol 100 mg tablet RxNorm: 052353 1 Tablet(s) PO daily 12/16/2015 12/15/2015 Inactive Protonix 40 mg tablet,delayed release RxNorm: 658175 1 Tablet(s) PO daily 12/16/2015 01/14/2016 Inactive Bactrim DS 800 mg-160 mg tablet RxNorm: 147339 1 Tablet(s) PO BID 12/16/2015 12/18/2015 Inactive colchicine 0.6 mg tablet RxNorm: 830123 Tablet(s) PO 1.2 mg for the first dose and 0.6 mg an hour after 12/15/2015 12/15/2015 Inactive dexamethasone 0.5 mg tablet RxNorm: 448872 1 Tablet(s) PO 12/12/2015 02/09/2016 Inactive Plavix 75 mg tablet RxNorm: 981354 1 Tablet(s) PO every other day 12/12/2015 04/09/2016 Inactive nitroglycerin 0.4 mg sublingual tablet RxNorm: 442923 1 Tablet(s) SL x3 in 15 min as needed 12/12/2015 04/26/2016 Inactive clonazepam 1 mg tablet RxNorm: 758639 1 Tablet(s) PO QHS and 1 tab po TID prn 12/11/2015 12/03/2016 Inactive [place] 5 mg-325 mg tablet RxNorm: 159974 1-2 Tablet(s) PO Q6 as needed 12/11/2015 09/26/2016 Inactive clonazepam 1 mg tablet RxNorm: 836416 1 Tablet(s) PO QHS and 1 tab po TID prn 12/04/2015 12/10/2015 Inactive Flomax 0.4 mg capsule RxNorm: 986196 1 Capsule(s) PO QPM 09/22/2015 01/19/2016 Inactive [SAVINGS FOR NON-COVERED DRUGS -- BIN:[id number], PCN: ASPROD1, Group: XXXXX, ID# XXXXXXX, Questions: . THIS IS NOT INSURANCE.] Flomax 0.4 mg capsule RxNorm: 017130 1 Capsule(s) PO QPM 09/16/2015 09/21/2015 Inactive [SAVINGS FOR NON-COVERED DRUGS -- BIN:[id number], PCN: ASPROD1, Group: XXXXX, ID# XXXXXXX, Questions: . THIS IS NOT INSURANCE.] clonazepam 1 mg tablet RxNorm: 902629 1 Tablet(s) PO QHS 08/29/2015 12/03/2015 Inactive coenzyme Q10 10 mg tablet RxNorm: 985485 1 Tablet(s) PO daily 07/30/2015 01/05/2016 Inactive spironolactone 25 mg tablet RxNorm: 180294 1 Tablet(s) PO daily 07/28/2015 07/21/2016 Inactive spironolactone 25 mg tablet RxNorm: 458637 1 Tablet(s) PO daily 07/22/2015 07/27/2015 Inactive clonazepam 1 mg tablet RxNorm: 551890 1 Tablet(s) PO QHS 05/23/2015 08/28/2015 Inactive losartan 25 mg tablet RxNorm: 962948 1 Tablet(s) PO daily 02/19/2015 03/20/2015 Inactive Flonase Allergy Relief 50 mcg/actuation nasal spray,suspension RxNorm: 1 [place] NASAL BID 02/19/2015 04/26/2016 Inactive [SAVINGS FOR NON-COVERED DRUGS -- BIN:[id number], PCN: ASPROD1, Group: XXXXX, ID# XXXXXXX, Questions: . THIS IS NOT INSURANCE.] Flomax 0.4 mg capsule RxNorm: 152099 1 Capsule(s) PO QPM 02/19/2015 09/15/2015 Inactive [SAVINGS FOR NON-COVERED DRUGS -- BIN:[id number], PCN: ASPROD1, Group: XXXXX, ID# XXXXXXX, Questions: . THIS IS NOT INSURANCE.] citalopram 20 mg tablet RxNorm: 241417 1 Tablet(s) PO daily 02/19/2015 03/20/2015 Inactive atenolol 25 mg tablet RxNorm: 635455 1 Tablet(s) PO daily 02/19/2015 03/20/2015 Inactive Lipitor 20 mg tablet RxNorm: 802878 1 Tablet(s) PO daily 02/19/2015 03/20/2015 Inactive vitamin B complex oral RxNorm: 83499 oral No Start Date Active Rachel oral RxNorm: 313066 oral No Start Date Active Lipitor oral RxNorm: 80436 oral No Start Date Active warfarin 3 mg tablet RxNorm: 893331 1 Tablet(s) PO daily No Start Date Active managed by strategic alliances manager Dr Deleon aspirin 81 mg capsule,delayed release RxNorm: 407972 1 Capsule(s) PO daily No Start Date Active Aleve 220 mg tablet RxNorm: 687936 Tablet(s) PO as needed No Start Date Active Vitamin D3 1,000 unit capsule RxNorm: 066706 2 Capsule(s) PO daily No Start Date Active Centrum Complete oral RxNorm: 08478 oral No Start Date Active Carafate 1 gram tablet RxNorm: 326363 1 Tablet(s) PO every other day No Start Date Active glucosamine HCl 1,500 mg tablet RxNorm: 633561 1 Tablet(s) with 1200 mg chrondroitin PO daily No Start Date 08/01/2018 Inactive Claritin-D 24 Hour oral RxNorm: 278229 oral No Start Date 01/07/2019 Inactive ranitidine 150 mg tablet RxNorm: 424848 1 Tablet(s) PO TID No Start Date 12/11/2015 Inactive [place] 5 mg-325 mg tablet RxNorm: 349025 1-2 Tablet(s) PO Q6 as needed No Start Date 12/10/2015 Inactive krill oil oral RxNorm: 36472 oral No Start Date 08/07/2018 Inactive Vitamin B-6 100 mg tablet RxNorm: 739741 1 Tablet(s) PO TID No Start Date 08/31/2017 Inactive spironolactone 25 mg tablet RxNorm: 219298 1 Tablet(s) PO daily No Start Date 07/21/2015 Inactive Vitamin D3 oral RxNorm: 2418 oral No Start Date 02/17/2016 Inactive clonazepam 1 mg tablet RxNorm: 689376 1 Tablet(s) PO daily No Start Date 05/22/2015 Inactive Glucosamine oral RxNorm: 4845 oral No Start Date 04/26/2016 Inactive cetirizine 10 mg tablet RxNorm: 0482052 1 Tablet(s) PO daily No Start Date 01/07/2019 Inactive losartan 50 mg tablet RxNorm: 285617 1 Tablet(s) PO daily No Start Date 05/23/2018 Inactive Plavix 75 mg tablet RxNorm: 517093 1 Tablet(s) PO every other day No Start Date 12/11/2015 Inactive Osteo Bi-Flex oral RxNorm: 1756840 oral No Start Date 09/01/2017 Inactive iron ER 159 mg (45 mg iron) tablet,extended release RxNorm: 016261 1 Tablet(s) PO BID No Start Date 04/26/2016 Inactive amlodipine 5 mg tablet RxNorm: 540131 1 Tablet(s) PO daily No Start Date 01/05/2016 Inactive aspirin 81 mg tablet,delayed release RxNorm: 911826 1 Tablet(s) PO daily No Start Date 05/09/2018 Inactive dexamethasone 0.5 mg tablet RxNorm: 401568 1 Tablet(s) PO No Start Date 12/11/2015 Inactive Vitamin B-12 1,000 mcg tablet RxNorm: 835083 6 Tablet(s) PO every other day No Start Date 06/11/2018 Inactive colchicine 0.6 mg tablet RxNorm: 800344 Tablet(s) PO 1.2 mg for the first dose and 0.6 mg an hour after No Start Date 12/14/2015 Inactive nitroglycerin 0.4 mg sublingual tablet RxNorm: 577906 1 Tablet(s) SL x3 in 15 min as needed No Start Date 12/11/2015 Inactive Fish Oil 1,000 mg capsule RxNorm: 1 Capsule(s) PO daily No Start Date 04/26/2016 Inactive Ecotrin Low Strength 81 mg tablet,enteric coated RxNorm: 9560137 1 Tablet(s) PO daily No Start Date 09/27/2016 Inactive Medication Administered Medication Codes Instructions Start Date Status Kenalog 40 mg/mL suspension for injection RxNorm: 7942669 Milliliter 06/12/2018 No longer Active Immunizations Vaccine Codes Date Status Influenza CVX: 141 07/05/2018 completed Influenza CVX: 141 08/01/2017 completed Pneumococcal CVX: 33 08/01/2017 completed Influenza CVX: 141 06/28/2016 completed Tetanus, Diptheria, Pertussis CVX: 113 06/28/2016 completed Tetanus/Diptheria CVX: 113 06/28/2016 completed Pneumococcal Unknown 08/04/2015 completed Influenza CVX: 141 04/16/2014 completed Pneumococcal CVX: 33 05/15/2008 completed Assessments Condition Codes Effective Dates Frequency of micturition ICD-10: R35.0 ICD-9: 788.41 02/12/2019 Essential (primary) hypertension ICD-10: I10 ICD-9: 401.1 02/12/2019 Paroxysmal atrial fibrillation ICD-10: I48.0 ICD-9: [...] Visit Effective Dates Notes Hospital Follow Up 02/12/2019 fatigue 01/29/2019 flank [...] 30.4 pg 10/20/2018 Cbc With Differential Ord2 [facility]% 5.7 % 10/20/2018 Cbc With Differential Ord2 [...] 1.69 K/ul 10/20/2018 Cbc With Differential Ord2 [facility] [place] ABS# 0.6 K/ul 10/20/2018 Cbc With Differential Ord2 Eos ABS# 0.0 K/ul 10/20/2018 Cbc With Differential Ord2 Baso ABS# 0.0 K/ul 10/20/2018 Comp Metabolic Nav335 NA 140 mEq/L 10/20/2018 Comp Metabolic Dnf277 K 4.0 mEq/L 10/20/2018 Comp Metabolic Dhy107 CL 104 mEq/L 10/20/2018 Comp Metabolic Bwf764 CO2 28.0 mEq/L 10/20/2018 Comp Metabolic Hgy780 ANION GAP 12 10/20/2018 Comp Metabolic Bgb208 GLUCOSE 113 mg/dL 10/20/2018 Comp Metabolic Wuf710 Creat 1.0 mg/dL 10/20/2018 Comp Metabolic Ysn135 eGFR 75 ml/min/1.73m2 10/20/2018 Comp Metabolic Pbp825 BUN 18 mg/dL 10/20/2018 Comp Metabolic Sah862 B/C Ratio 17.8 Ratio 10/20/2018 Comp Metabolic Ywh963 CALCIUM 9.8 mg/dL 10/20/2018 Comp Metabolic Iwo800 ALK PHOS 70 U/L 10/20/2018 Comp Metabolic Zmt585 AST(SGOT) 15 U/L 10/20/2018 Comp Metabolic Gbl296 ALT(SGPT) 18 U/L 10/20/2018 Comp Metabolic Msh221 BILI T 1.1 mg/dL 10/20/2018 Comp Metabolic Ygv811 ALBUMIN 4.4 g/dL 10/20/2018 Comp Metabolic Nyr755 TPRO 6.9 g/dL 10/20/2018 Comp Metabolic Lzr061 GLOB 2.5 g/dL 10/20/2018 Comp Metabolic Kgt023 A/G Ratio 1.7 Ratio 10/20/2018 Comp Metabolic Cro297 Osmo 282 mOsmo 10/20/2018 Urinalysis Ord28 U-Color [...] 29.0 pg 07/14/2018 Cbc With Differential Ord2 [facility] [place]% 7.5 % 07/14/2018 Cbc With Differential Ord2 [...] 1.92 K/ul 07/14/2018 Cbc With Differential Ord2 [facility] ABS# 0.4 K/ul 07/14/2018 Cbc With Differential Ord2 Eos ABS# 0.2 K/ul 07/14/2018 Cbc With Differential Ord2 Baso ABS# 0.0 K/ul 07/14/2018 Renal Nmb696 NA 140 mEq/L 07/14/2018 Renal Upz306 K 4.2 mEq/L 07/14/2018 Renal Emh059 CL 103 mEq/L 07/14/2018 Renal Ysu648 CO2 29.0 mEq/L 07/14/2018 Renal Nbh433 ANION GAP 12 07/14/2018 Renal Fxq073 Osmo 280 mOsmo 07/14/2018 Renal Cdn847 GLUCOSE 95 mg/dL 07/14/2018 Renal Tiu396 BUN 15 mg/dL 07/14/2018 Renal Nwq852 Creat 1.2 mg/dL 07/14/2018 Renal Ccv837 eGFR 64 ml/min/1.73m2 07/14/2018 Renal Hew869 B/C Ratio 12.8 Ratio 07/14/2018 Renal Qhh784 CALCIUM 9.6 mg/dL 07/14/2018 Renal Rvc897 PHOS 3.2 mg/dL 07/14/2018 Renal Agz942 ALBUMIN 4.4 g/dL 07/14/2018 Magnesium Ord90 Mag [...] 29.7 pg 06/08/2018 Cbc With Differential Ord2 [facility] [place]% 8.7 % 06/08/2018 Cbc With Differential Ord2 [...] 2.14 K/ul 06/08/2018 Cbc With Differential Ord2 [facility] [place] ABS# 0.5 K/ul 06/08/2018 Cbc With Differential Ord2 Eos ABS# 0.2 K/ul 06/08/2018 Cbc With Differential Ord2 Baso ABS# 0.0 K/ul 06/08/2018 Comp Metabolic Jjn841 NA 139 mEq/L 06/08/2018 Comp Metabolic Nfz179 K 4.6 mEq/L 06/08/2018 Comp Metabolic Llk786 CL 105 mEq/L 06/08/2018 Comp Metabolic Tby522 CO2 26.0 mEq/L 06/08/2018 Comp Metabolic Ocb978 ANION GAP 13 06/08/2018 Comp Metabolic Rgn254 GLUCOSE 95 mg/dL 06/08/2018 Comp Metabolic Lpa257 Creat 1.2 mg/dL 06/08/2018 Comp Metabolic Abz709 eGFR 59 ml/min/1.73m2 06/08/2018 Comp Metabolic Teb460 BUN 12 mg/dL 06/08/2018 Comp Metabolic Dhw033 B/C Ratio 9.7 Ratio 06/08/2018 Comp Metabolic Tqm216 CALCIUM 9.9 mg/dL 06/08/2018 Comp Metabolic Xtt281 ALK PHOS 70 U/L 06/08/2018 Comp Metabolic Saj667 AST(SGOT) 21 U/L 06/08/2018 Comp Metabolic Nmx753 ALT(SGPT) 20 U/L 06/08/2018 Comp Metabolic Iml352 BILI T 1.0 mg/dL 06/08/2018 Comp Metabolic Csz754 ALBUMIN 4.5 g/dL 06/08/2018 Comp Metabolic Sum944 TPRO 7.2 g/dL 06/08/2018 Comp Metabolic Otn411 GLOB 2.8 g/dL 06/08/2018 Comp Metabolic Lhv098 A/G Ratio 1.6 Ratio 06/08/2018 Comp Metabolic Zpd540 Osmo 277 mOsmo 06/08/2018 Cbc With Differential [...] 30.6 pg 05/10/2018 Cbc With Differential Ord2 [facility] [place]% 6.5 % 05/10/2018 Cbc With Differential Ord2 [...] 1.94 K/ul 05/10/2018 Cbc With Differential Ord2 [facility] ABS# 0.4 K/ul 05/10/2018 Cbc With Differential [...] Ord30 C/HDL 4.2 Ratio 01/26/2018 Comp Metabolic Wyy119 NA 138 mEq/L 01/26/2018 Comp Metabolic Ukl463 K 4.2 mEq/L 01/26/2018 Comp Metabolic Thi699 CL 105 mEq/L 01/26/2018 Comp Metabolic Nya105 CO2 23.0 mEq/L 01/26/2018 Comp Metabolic Pcr368 ANION GAP 14 01/26/2018 Comp Metabolic Uip785 GLUCOSE 89 mg/dL 01/26/2018 Comp Metabolic Xwc325 Creat 1.1 mg/dL 01/26/2018 Comp Metabolic Eet591 eGFR 70 ml/min/1.73m2 01/26/2018 Comp Metabolic Ypb475 BUN 18 mg/dL 01/26/2018 Comp Metabolic Apz558 B/C Ratio 16.8 Ratio 01/26/2018 Comp Metabolic Eqr139 CALCIUM 9.2 mg/dL 01/26/2018 Comp Metabolic Zhc442 ALK PHOS 67 U/L 01/26/2018 Comp Metabolic Byk956 AST(SGOT) 31 U/L 01/26/2018 Comp Metabolic Jjh880 ALT(SGPT) 23 U/L 01/26/2018 Comp Metabolic Zuj192 BILI T 1.7 mg/dL 01/26/2018 Comp Metabolic Sxv928 ALBUMIN 3.9 g/dL 01/26/2018 Comp Metabolic Kfh933 TPRO 6.7 g/dL 01/26/2018 Comp Metabolic Xhr878 GLOB 2.8 g/dL 01/26/2018 Comp Metabolic Icb097 A/G Ratio 1.4 Ratio 01/26/2018 Comp Metabolic Yup907 Osmo 277 mOsmo 01/26/2018 Cbc With Differential [...] 30.7 pg 01/26/2018 Cbc With Differential Ord2 [facility]% 7.1 % 01/26/2018 Cbc With Differential Ord2 [...] 2.40 K/ul 01/26/2018 Cbc With Differential Ord2 [facility] ABS# 0.5 K/ul 01/26/2018 Cbc With Differential Ord2 Eos ABS# 0.2 K/ul 01/26/2018 Cbc With Differential Ord2 Baso ABS# 0.0 K/ul 01/26/2018 Tsh Ord6 TSH (3rd IS) 1.81 uIU/mL 01/26/2018 Testosterone Ppp169 Testo 370.3 ng/dL 01/26/2018 C A/B FLU [id number] Influenza A Scr Negative 12/08/2017 C A/B FLU [id number] Influenza B Scr Negative 12/08/2017 C A/B FLU [id number] Influenza Intrp B AG:PRID:PT:NOSE:NOM:IF See Footnote 12/08/2017 [...] 30.8 pg 04/11/2017 Cbc With Differential Ord2 [facility] [place]% 8.1 % 04/11/2017 Cbc With Differential Ord2 [...] 1.91 K/ul 04/11/2017 Cbc With Differential Ord2 [facility] [place] ABS# 0.5 K/ul 04/11/2017 Cbc With Differential Ord2 Eos ABS# 0.2 K/ul 04/11/2017 Cbc With Differential Ord2 Baso ABS# 0.0 K/ul 04/11/2017 Comp Metabolic Prs665 NA 140 mEq/L 04/11/2017 Comp Metabolic Soh979 K 4.1 mEq/L 04/11/2017 Comp Metabolic Bxh191 CL 105 mEq/L 04/11/2017 Comp Metabolic Ltx095 CO2 26.0 mEq/L 04/11/2017 Comp Metabolic Jvh150 ANION GAP 13 04/11/2017 Comp Metabolic Frm900 GLUCOSE 88 mg/dL 04/11/2017 Comp Metabolic Nbm958 Creat 1.1 mg/dL 04/11/2017 Comp Metabolic Bbm750 eGFR 66 ml/min/1.73m2 04/11/2017 Comp Metabolic Iam981 BUN 18 mg/dL 04/11/2017 Comp Metabolic Fxs647 B/C Ratio 15.9 Ratio 04/11/2017 Comp Metabolic Mwj940 CALCIUM 9.0 mg/dL 04/11/2017 Comp Metabolic Tyu313 ALK PHOS 72 U/L 04/11/2017 Comp Metabolic Cet730 AST(SGOT) 22 U/L 04/11/2017 Comp Metabolic Bsx642 ALT(SGPT) 26 U/L 04/11/2017 Comp Metabolic Ffu625 BILI T 1.0 mg/dL 04/11/2017 Comp Metabolic Ecw650 ALBUMIN 4.0 g/dL 04/11/2017 Comp Metabolic Alc760 TPRO 6.4 g/dL 04/11/2017 Comp Metabolic Rum696 GLOB 2.4 g/dL 04/11/2017 Comp Metabolic Iuo173 A/G Ratio 1.6 Ratio 04/11/2017 Comp Metabolic Sdl753 Osmo 281 mOsmo 04/11/2017 Vitamin D 25 Oh Rqj8427 VITAMIN D, 25 HYDROXY 65.52 ng/mL 05/19/2016 [...] 28.5 pg 05/18/2016 Cbc With Differential Ord2 [facility]% 7.2 % 05/18/2016 Cbc With Differential Ord2 [...] 1.80 K/ul 05/18/2016 Cbc With Differential Ord2 [facility] ABS# 0.4 K/ul 05/18/2016 Cbc With Differential Ord2 Eos ABS# 0.2 K/ul 05/18/2016 Cbc With Differential Ord2 Baso ABS# 0.0 K/ul 05/18/2016 Magnesium Ord90 Mag 2.0 mg/dL 05/18/2016 Renal Qfp220 NA 139 mEq/L 05/18/2016 Renal Reo867 K 4.0 mEq/L 05/18/2016 Renal Aoz510 CL 104 mEq/L 05/18/2016 Renal Sab734 CO2 27.0 mEq/L 05/18/2016 Renal Kgl020 ANION GAP 12 05/18/2016 Renal Gfx279 Osmo 279 mOsmo 05/18/2016 Renal Yrd687 GLUCOSE 91 mg/dL 05/18/2016 Renal Dzt672 BUN 18 mg/dL 05/18/2016 Renal Ckc035 Creat 1.3 mg/dL 05/18/2016 Renal Udi143 eGFR 59 ml/min/1.73m2 05/18/2016 Renal Rhy068 B/C Ratio 14.3 Ratio 05/18/2016 Renal Pcl847 CALCIUM 9.3 mg/dL 05/18/2016 Renal Msg613 PHOS 3.2 mg/dL 05/18/2016 Renal Tvj628 ALBUMIN 4.2 g/dL 05/18/2016 Random Urine Protein/Creatinine Ratio Yfs1666 U Prot 15.0 mg/dl 05/18/2016 Random Urine Protein/Creatinine Ratio Ebm6583 U CREAT 141.0 mg/dL 05/18/2016 Random Urine Protein/Creatinine Ratio Ggw2956 R MTP/Creat Ratio 0.11 05/18/2016 Urinalysis Ord28 [...] 28.5 pg 02/19/2016 Cbc With Differential Ord2 [facility]% 9.5 % 02/19/2016 Cbc With Differential Ord2 [...] 1.91 K/ul 02/19/2016 Cbc With Differential Ord2 [facility] ABS# 0.5 K/ul 02/19/2016 Cbc With Differential Ord2 Eos ABS# 0.2 K/ul 02/19/2016 Cbc With Differential Ord2 Baso ABS# 0.0 K/ul 02/19/2016 Cbc With Differential Ord2 New Analyzer Notice Please note new ref ranges starting 10-29-2015 due to implemntation of new five part differential hematolgy analyzer. 02/19/2016 Tsh Ord6 hTSH II 2.10 uIU/mL 02/19/2016 Comp Metabolic [id number] NA 138 mEq/L 02/19/2016 Comp Metabolic Hbb668 K 3.8 mEq/L 02/19/2016 Comp Metabolic Nsf632 CL 103 mEq/L 02/19/2016 Comp Metabolic Any551 CO2 28.0 mEq/L 02/19/2016 Comp Metabolic Stn389 ANION GAP 11 02/19/2016 Comp Metabolic Qop861 GLUCOSE 94 mg/dL 02/19/2016 Comp Metabolic Fex806 Creat 1.0 mg/dL 02/19/2016 Comp Metabolic Dgf425 eGFR 75 ml/min/1.73m2 02/19/2016 Comp Metabolic Oni538 BUN 18 mg/dL 02/19/2016 Comp Metabolic Aoz164 B/C Ratio 17.6 Ratio 02/19/2016 Comp Metabolic Imp266 CALCIUM 9.6 mg/dL 02/19/2016 Comp Metabolic Blp197 ALK PHOS 93 U/L 02/19/2016 Comp Metabolic Lgo040 AST(SGOT) 23 U/L 02/19/2016 Comp Metabolic Wno679 ALT(SGPT) 19 U/L 02/19/2016 Comp Metabolic Qxr387 BILI T 0.8 mg/dL 02/19/2016 Comp Metabolic Txx700 ALBUMIN 4.1 g/dL 02/19/2016 Comp Metabolic Zec457 TPRO 6.8 g/dL 02/19/2016 Comp Metabolic Vop886 GLOB 2.7 g/dL 02/19/2016 Comp Metabolic Lrp984 A/G Ratio 1.5 Ratio 02/19/2016 Comp Metabolic Vzb118 Osmo 277 mOsmo 02/19/2016 Uric Acid Ord77 Uric A 6.0 mg/dL 02/19/2016 Total Psa Ord10 PSA 0.82 ng/mL 02/19/2016 Comp Metabolic Bod506 NA 140 mEq/L 12/16/2015 Comp Metabolic Vnj488 K 4.0 mEq/L 12/16/2015 Comp Metabolic Cbn223 CL 105 mEq/L 12/16/2015 Comp Metabolic Qgt593 CO2 24.0 mEq/L 12/16/2015 Comp Metabolic Wbx197 ANION GAP 15 12/16/2015 Comp Metabolic Ybq650 GLUCOSE 85 mg/dL 12/16/2015 Comp Metabolic Mgb448 Creat 1.2 mg/dL 12/16/2015 Comp Metabolic Rqt922 eGFR 65 ml/min/1.73m2 12/16/2015 Comp Metabolic Irt997 BUN 14 mg/dL 12/16/2015 Comp Metabolic Ggt752 B/C Ratio 12.1 Ratio 12/16/2015 Comp Metabolic Zgu989 CALCIUM 9.1 mg/dL 12/16/2015 Comp Metabolic Szj155 ALK PHOS 162 U/L 12/16/2015 Comp Metabolic Hzk590 AST(SGOT) 14 U/L 12/16/2015 Comp Metabolic Gln323 ALT(SGPT) 17 U/L 12/16/2015 Comp Metabolic Xlh595 BILI T 1.0 mg/dL 12/16/2015 Comp Metabolic Pku900 ALBUMIN 3.4 g/dL 12/16/2015 Comp Metabolic Mya894 TPRO 6.2 g/dL 12/16/2015 Comp Metabolic Gim119 GLOB 2.9 g/dL 12/16/2015 Comp Metabolic Vur210 A/G Ratio 1.2 Ratio 12/16/2015 Comp Metabolic Ziu990 Osmo 279 mOsmo 12/16/2015 Uric Acid Ord77 [...] 29.9 % 12/16/2015 Cbc With Differential Ord2 [facility]% 7.5 % 12/16/2015 Cbc With Differential Ord2 [...] 1.52 K/ul 12/16/2015 Cbc With Differential Ord2 [facility] ABS# 0.4 K/ul 12/16/2015 Cbc With Differential [...] C/HDL 4.0 Ratio 07/21/2015 Urine Protein 24Hr Vun905 U Prot 5.1 mg/dl 05/16/2015 Urine Protein 24Hr Zfe849 U Prot24 71.5 mg/24hr 05/16/2015 Total Volume Urine Qzz908 TV/24hr 1400 ml 05/16/2015 Total Psa Ord10 PSA 0.70 ng/mL 05/15/2015 Renal Ynf523 NA 135 mEq/L 05/15/2015 Renal Byu329 K 3.9 mEq/L 05/15/2015 Renal Yfm904 CL 101 mEq/L 05/15/2015 Renal Lzp606 CO2 27.0 mEq/L 05/15/2015 Renal Dmi260 ANION GAP 11 05/15/2015 Renal Oth829 Osmo 274 mOsmo 05/15/2015 Renal Kss582 GLUCOSE 132 mg/dL 05/15/2015 Renal Pvm375 BUN 19 mg/dL 05/15/2015 Renal Ddr731 Creat 1.1 mg/dL 05/15/2015 Renal Rac458 eGFR 67 ml/min/1.73m2 05/15/2015 Renal Twp733 B/C Ratio 17.0 Ratio 05/15/2015 Renal Nes559 CALCIUM 9.6 mg/dL 05/15/2015 Renal Cin958 PHOS 3.0 mg/dL 05/15/2015 Renal Iya138 ALBUMIN 4.3 g/dL 05/15/2015 Cbc With Differential [...] Result Effective Dates Constitutional No recent illness 02/12/2019 Constitutional No [...] accomodation 12/25/2018 None Full Exam - General 1995 Ears/Nose/Throat external ear Overall: normal appearance 12/25/2018 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 Full Exam - General 1995 Ears/Nose/Throat lips/teeth/gingiva Overall: normal dentition 12/25/2018 None Full Exam - General 1995 Ears/Nose/Throat lips/teeth/gingiva Lips: stichtes d/i 12/25/2018 None Full Exam - General 1995 Ears/Nose/Throat oral cavity/pharynx/larynx Overall: oral mucosa clear 12/25/2018 None Full Exam - General 1995 Ears/Nose/Throat oral cavity/pharynx/larynx Overall: oropharyngeal mucosa clear 12/25/2018 None Full Exam - General 1995 Ears/Nose/Throat oral cavity/pharynx/larynx Overall: hypopharynx benign 12/25/2018 None Full Exam - General 1994 Ears/Nose/Throat oral cavity/pharynx/larynx Overall: no masses 12/25/2018 [...] None Full Exam - General 1995 Eyes conjunctiva/eyelids Overall: conjunctiva clear 12/13/2018 None Full Exam - General 1995 Eyes conjunctiva/eyelids Overall: cornea clear 12/13/2018 None Full Exam - General 1995 Eyes conjunctiva/eyelids Overall: eyelids normal 12/13/2018 None Full Exam - General 1994 Eyes pupils and irises Overall: pupils equal, round, reactive to light and accomodation 12/13/2018 None Full Exam - General 1995 Ears/Nose/Throat external ear Overall: normal appearance 12/13/2018 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 Full Exam - General 1995 Ears/Nose/Throat lips/teeth/gingiva Overall: normal dentition 12/13/2018 None Full Exam - General 1995 Ears/Nose/Throat lips/teeth/gingiva Lips: stichtes d/i 12/13/2018 None Full Exam - General 1994 [...] age 0211/27/2018 None Full Exam - General 1995 Constitutional [...] dentition 11/27/2018 None Full Exam - General 1995 Ears/Nose/Throat lips/teeth/gingiva Lips: stichtes d/i 11/27/2018 None [...] dentition 10/26/2016 None Full Exam - General 1995 [...] level 02/19/2015 None Full Exam - General 1995 Ears/Nose/Throat otoscopic exam Tympanic membrane: tympanosclerosis 02/19/2015 None Procedures Procedure Codes Date PPPS, SUBSEQ VISIT CPT- 4: G0439 08/10/2018 ADMIN INFLUENZA VIRUS VAC CPT-4: G0008 07/05/2018 FLU VACC PRSV FREE INC ANTIG Formatting Model/CDA Sections, Assigned to/Sharee Ramirez CPT-4: 57384Uhokxjx 07/05/2018 THER/PROPH/DIAG INJ SC/IM CPT-4: 81949 06/12/2018 TRIAMCINOLONE ACET INJ NOS CPT-4: J3301 06/12/2018 PPPS, SUBSEQ VISIT CPT- 4: G0439 08/03/2017 ADMIN INFLUENZA VIRUS VAC CPT-4: G0008 06/28/2016 FLU VACC PRSV FREE INC ANTIG CPT-4: 73255 06/28/2016 TENIVAC TD VACCINE NO PRSRV 7/> IM CPT-4: 92908 06/28/2016 OCCULT BLOOD FECES CPT- 4: 57318 02/19/2015 Vital Signs Date Vital 02/12/2019 Blood Pressure 1: 110/70 Code: 8480-6 BMI: 28.5 Code: 69136-2 Heart Rate 1: 70 bpm Height: 6' SpO2: 93% Weight: 210 lbs 01/29/2019 Blood Pressure 1: 110/78 Code: 8480-6 BMI: 28.5 Code: 47244-4 Heart Rate 1: 98 bpm Height: 6' SpO2: 90% Weight: 210 lbs 2019 Blood Pressure 1: 136/74 Code: 8480-6 BMI: 28.6 Code: 10723-3 Heart Rate 1: 97 bpm Height: 6' SpO2: 94% Weight: 211 lbs 01/08/2019 Blood Pressure 1: 128/86 Code: 8480-6 BMI: 28.6 Code: 89336-1 Heart Rate 1: 96 bpm Height: 6' SpO2: 97% Weight: 211 lbs 12/25/2018 Blood Pressure 1: 112/62 Code: 8480-6 BMI: 28.6 Code: 49219-3 Heart Rate 1: 76 bpm Height: 6' SpO2: 96% Weight: 211 lbs 12/13/2018 Blood Pressure 1: 114/78 Code: 8480-6 BMI: 29.4 Code: 98512-7 Heart Rate 1: 73 bpm Height: 6' SpO2: 93% Weight: 217 lbs 11/27/2018 Blood Pressure 1: 110/70 Code: 8480-6 BMI: 28.5 Code: 91310-6 Heart Rate 1: 90 bpm Height: 6' SpO2: 95% Temperature: 36.8 (C) / 98.2 (F) Weight: 210 lbs 8 oz 09/26/2018 Blood Pressure 1: 130/80 Code: 8480-6 BMI: 29.6 Code: 41606-7 Heart Rate 1: 98 bpm Height: 6' SpO2: 93% Weight: 218 lbs 08/10/2018 BMI: 29.4 Code: 62189-9 Height: 6' Weight: 217 lbs 07/26/2018 Blood Pressure 1: 11672 Code: 8480-6 BMI: 29.4 Code: 17294-3 Heart Rate 1: 102 bpm Height: 6' SpO2: 96% Weight: 217 lbs 07/05/2018 Blood Pressure 1: 132/72 Code: 8480-6 Heart Rate 1: 60 bpm SpO2: 95% 06/12/2018 Blood Pressure 1: 120/78 Code: 8480-6 BMI: 29.6 Code: 22486-2 Heart Rate 1: 103 bpm Height: 6' SpO2: 96% Weight: 218 lbs 05/10/2018 Blood Pressure 1: 114/68 Code: 8480-6 BMI: 29.4 Code: 38133-2 Heart Rate 1: 92 bpm Height: 6' SpO2: 97% Weight: 217 lbs 03/27/2018 Blood Pressure 1: 126/74 Code: 8480-6 BMI: 30.1 Code: 57253-6 Heart Rate 1: 103 bpm Height: 6' SpO2: 96% Weight: 222 lbs 01/25/2018 Blood Pressure 1: 122/70 Code: 8480-6 Blood Pressure 2: 126/73 Code: 8480-6 Heart Rate 1: 63 bpm SpO2: 94% 01/24/2018 Blood Pressure 1: 110/72 Code: 8480-6 BMI: 29.7 Code: 06502-2 Heart Rate 1: 88 bpm Height: 6' SpO2: 95% Weight: 219 lbs 12/08/2017 Blood Pressure 1: 120/68 Code: 8480-6 BMI: 30.0 Code: 88600-4 Heart Rate 1: 91 bpm Height: 6' SpO2: 96% Temperature: 36.7 (C) / 98.1 (F) Weight: 221 lbs 10/27/2017 Blood Pressure 1: 124/76 Code: 8480-6 BMI: 30.1 Code: 17679-5 Heart Rate 1: 69 bpm Height: 6' SpO2: 95% Weight: 222 lbs 09/29/2017 Blood Pressure 1: 118/66 Code: 8480-6 BMI: 29.9 Code: 91632-1 Heart Rate 1: 81 bpm Height: 6' SpO2: 95% Weight: 220 lbs 8 oz 09/01/2017 Blood Pressure 1: 122/82 Code: 8480-6 BMI: 29.6 Code: 04445-0 Heart Rate 1: 75 bpm Height: 6' SpO2: 97% Weight: 218 lbs 08/03/2017 Blood Pressure 1: 120/68 Code: 8480-6 Heart Rate 1: 68 bpm Height: 6' SpO2: 94% Waist Measure (cm): 97 cm 04/26/2017 Blood Pressure 1: 122/72 Code: 8480-6 BMI: 29.4 Code: 86665-6 Heart Rate 1: 85 bpm Height: 6' SpO2: 92% Weight: 217 lbs 01/25/2017 Blood Pressure 1: 118/78 Code: 8480-6 BMI: 29.4 Code: 23982-1 Heart Rate 1: 72 bpm Height: 6' SpO2: 94% Temperature: 36.9 (C) / 98.5 (F) Weight: 217 lbs 10/26/2016 Blood Pressure 1: 152/86 Code: 8480-6 BMI: 29.7 Code: 81166-3 Heart Rate 1: 58 bpm Height: 6' Weight: 219 lbs 09/27/2016 Blood Pressure 1: 138/80 Code: 8480-6 BMI: 29.4 Code: 83794-5 Heart Rate 1: 52 bpm Height: 6' SpO2: 98% Weight: 217 lbs 06/28/2016 Blood Pressure 1: 128/86 Code: 8480-6 BMI: 29.6 Code: 75764-4 Heart Rate 1: 69 bpm Height: 6' SpO2: 93% Weight: 218 lbs 04/27/2016 Blood Pressure 1: 118/82 Code: 8480-6 BMI: 29.3 Code: 92290-8 Heart Rate 1: 85 bpm Height: 6' SpO2: 98% Weight: 216 lbs 02/17/2016 Blood Pressure 1: 132/80 Code: 8480-6 BMI: 28.8 Code: 02006-1 Heart Rate 1: 94 bpm Height: 6' SpO2: 98% Weight: 212 lbs 01/20/2016 Blood Pressure 1: 120/70 Code: 8480-6 BMI: 29.7 Code: 98101-5 Heart Rate 1: 87 bpm Height: 6' SpO2: 92% Weight: 219 lbs 01/06/2016 Blood Pressure 1: 122/88 Code: 8480-6 BMI: 28.8 Code: 35373-9 Heart Rate 1: 83 bpm Height: 6' SpO2: 97% Weight: 212 lbs 12/16/2015 Blood Pressure 1: 98/62 Code: 8480-6 Heart Rate 1: 62 bpm Height: 6' SpO2: 90% Weight: 11/27/2015 Blood Pressure 1: 90/64 Code: 8480-6 Blood Pressure 1: 110/80 Code: 8480-6 Heart Rate 1: 91 bpm Height: 6' SpO2: 92% Weight: 07/30/2015 Blood Pressure 1: 112/82 Code: 8480-6 BMI: 30.5 Code: 11516-6 Heart Rate 1: 82 bpm Height: 6' SpO2: 92% Weight: 225 lbs 06/09/2015 Blood Pressure 1: 130/76 Code: 8480-6 BMI: 31.1 Code: 62442-6 Heart Rate 1: 65 bpm Height: 6' SpO2: 96% Weight: 229 lbs 04/29/2015 Blood Pressure 1: 118/78 Code: 8480-6 BMI: 30.7 Code: 28353-4 Heart Rate 1: 70 bpm Height: 6' Weight: 226 lbs 02/19/2015 Blood Pressure 1: 118/70 Code: 8480-6 BMI: 29.7 Code: 51809-7 Heart Rate 1: 68 bpm Height: 6' Weight: 219 lbs Functional Status No Functional Status data History of Present Illness Symptom Name Status Result Effective Date Notes _ cardiac disease 02/12/2019 None Onset of [...] data Encounters Encounter Performer Location Codes Date ([id number]) [id number] EST. PATIENT, LEVEL IV Diagnosis: Paroxysmal atrial fibrillation[ICD10: I48.0] Diagnosis: Essential (primary) hypertension[ICD10: I10] Diagnosis: Frequency of micturition[ICD10: R35.0] Merline Butcher MD, [facility] CPT-4: 26931 02/12/2019 ([id number]) 97399 EST. PATIENT, LEVEL V Diagnosis: Essential (primary) hypertension[ICD10: I10] Diagnosis: Dizziness and giddiness[ICD10: R42] Diagnosis: Vertigo of central origin, right ear[ICD10: H81.41] Lesley Butcher MD, [facility] CPT-4: 52055 01/29/2019 64201 EST. PATIENT, LEVEL III Diagnosis: Pleurodynia[ICD10: R07.81] Mady Butcher MD, [facility] CPT-4: 35185 2019 ([id number]) 93034 EST. PATIENT, LEVEL III Diagnosis: Other allergic rhinitis[ICD10: J30.89] Merline Butcher MD, [facility] CPT-4: 74825 01/08/2019 33082 EST. PATIENT, LEVEL IV Diagnosis: Other fatigue[ICD10: R53.83] Diagnosis: Obstructive sleep apnea (adult) (pediatric)[ICD10: G47.33] Diagnosis: Other malaise[ICD10: R53.81] Mady Butcher MD, [facility] CPT-4: 51018 12/25/2018 ([id number]) 01412 EST. PATIENT, LEVEL IV Diagnosis: Shortness of breath[ICD10: R06.02] Diagnosis: Other fatigue[ICD10: R53.83] Diagnosis: Obstructive sleep apnea (adult) (pediatric)[ICD10: G47.33] Diagnosis: Other malaise[ICD10: R53.81] Lesley Butcher MD, [facility] CPT-4: 69928 12/13/2018 ([id number]) 16366 EST. PATIENT, LEVEL IV Diagnosis: Shortness of breath[ICD10: R06.02] Diagnosis: Dizziness and giddiness[ICD10: R42] Diagnosis: Other fatigue[ICD10: R53.83] Diagnosis: Essential (primary) hypertension[ICD10: I10] Diagnosis: Muscle weakness (generalized)[ICD10: M62.81] Merline Butcher MD, [facility] CPT-4: 87383 11/27/2018 ([id number]) 84667 EST. PATIENT, LEVEL IV Diagnosis: Essential (primary) hypertension[ICD10: I10] Diagnosis: Vertigo of central origin, right ear[ICD10: H81.41] Diagnosis: Low back pain[ICD10: M54.5] Lesley Butcher MD, [facility] CPT-4: 15420 09/26/2018 ([id number]) 87114 EST. PATIENT, LEVEL III Diagnosis: Dizziness and giddiness[ICD10: R42] Diagnosis: Vertigo of central origin, right ear[ICD10: H81.41] Diagnosis: Essential (primary) hypertension[ICD10: I10] Lesley Butcher MD, [facility] CPT-4: 08299 07/26/2018 ([id number]) 01963 EST. PATIENT, LEVEL III Diagnosis: Essential (primary) hypertension[ICD10: I10] Lesley Butcher MD, [facility] CPT-4: 34841 06/12/2018 ([id number]) 57499 EST. PATIENT, LEVEL IV Diagnosis: Other iron deficiency anemias[ICD10: D50.8] Diagnosis: Weakness[ICD10: R53.1] Diagnosis: Diverticulosis of large intestine without perforation or abscess with bleeding[ICD10: K57.31] Lesley Butcher MD, [facility] CPT-4: 55353 05/10/2018 ([id number]) 06024 EST. PATIENT, LEVEL IV Diagnosis: Essential (primary) hypertension[ICD10: I10] Diagnosis: Major depressive disorder, recurrent, mild[ICD10: F33.0] Diagnosis: Sensorineural hearing loss, bilateral[ICD10: H90.3] Lesley Butcher MD, [facility] CPT-4: 57440 03/27/2018 ([id number]) Miscellaneous no charge Diagnosis: Essential (primary) hypertension[ICD10: I10] Mady Butcher MD, [facility] CPT-4: 03154 01/25/2018 ([id number]) 29259 EST. PATIENT, LEVEL IV Diagnosis: Essential (primary) hypertension[ICD10: I10] Diagnosis: Sensorineural hearing loss, bilateral[ICD10: H90.3] Diagnosis: Mixed hyperlipidemia[ICD10: E78.2] Diagnosis: Major depressive disorder, recurrent, mild[ICD10: F33.0] Lesley Butcher MD, [facility] CPT-4: 08580 01/24/2018 [id number] EST. PATIENT, LEVEL IV Diagnosis: Other malaise[ICD10: R53.81] Diagnosis: Fever, unspecified[ICD10: R50.9] Mady Butcher MD, [facility] CPT-4: 28434 12/08/2017 ([id number]) 40286 EST. PATIENT, LEVEL III Diagnosis: Essential (primary) hypertension[ICD10: I10] Lesley Butcher MD, [facility] CPT-4: 01768 10/27/2017 ([id number]) 02664 EST. PATIENT, LEVEL III Diagnosis: Benign prostatic hyperplasia with lower urinary tract symptoms[ICD10: N40.1] Diagnosis: Dysphagia, pharyngeal phase[ICD10: R13.13] Lesley Butcher MD, [facility] CPT-4: 51223 09/29/2017 ([id number]) 66194 EST. PATIENT, LEVEL IV Diagnosis: Essential (primary) hypertension[ICD10: I10] Diagnosis: Major depressive disorder, recurrent, mild[ICD10: F33.0] Diagnosis: Sensorineural hearing loss, bilateral[ICD10: H90.3] Lesley Butcher MD, [facility] CPT-4: 06042 09/01/2017 ([id number]) 42823 EST. PATIENT, LEVEL IV Diagnosis: Essential (primary) hypertension[ICD10: I10] Diagnosis: Major depressive disorder, recurrent, mild[ICD10: F33.0] Diagnosis: Mixed hyperlipidemia[ICD10: E78.2] Lesley Butcher MD, [facility] CPT- 4: 97107 04/26/2017 [id number]) 84060 EST. PATIENT, LEVEL IV Diagnosis: Essential (primary) hypertension[ICD10: I10] Diagnosis: Major depressive disorder, recurrent, mild[ICD10: F33.0] Diagnosis: Urge incontinence[ICD10: N39.41] Lesley Butcher MD, [facility] CPT-4: 13889 01/25/2017 [id number]) 77761 EST. PATIENT, LEVEL IV Diagnosis: Essential (primary) hypertension[ICD10: I10] Diagnosis: Major depressive disorder, recurrent, mild[ICD10: F33.0] Diagnosis: Urge incontinence[ICD10: N39.41] Lesley Butcher MD, [facility] CPT-4: 43156 10/26/2016 [id number]) 30568 EST. PATIENT, LEVEL III Diagnosis: Essential (primary) hypertension[ICD10: I10] Diagnosis: Major depressive disorder, recurrent, mild[ICD10: F33.0] Diagnosis: Urge incontinence[ICD10: N39.41] Lesley Butcher MD, [facility] CPT-4: 52461 09/27/2016 [id number]) 06548 EST. PATIENT, LEVEL IV Diagnosis: Essential (primary) hypertension[ICD10: I10] Diagnosis: Encounter for immunization[ICD10: Z23] Diagnosis: Laceration without foreign body of left forearm, initial encounter[ICD10: S51.812A] Diagnosis: Laceration without foreign body of right forearm, initial encounter[ICD10: S51.811A] Diagnosis: Major depressive disorder, recurrent, mild[ICD10: F33.0] Lesley Butcher MD, [facility] CPT-4: 97611 06/28/2016 [id number]) 66742 EST. 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 PATIENT, LEVEL V Diagnosis: Essential (primary) hypertension[ICD10: I10] Diagnosis: Major depressive disorder, recurrent, mild[ICD10: F33.0] Diagnosis: Idiopathic gout, left ankle and foot[ICD10: M10.072] Diagnosis: Mixed hyperlipidemia[ICD10: E78.2] Lesley Butcher MD, [facility] CPT- 4: 17850 02/17/2016 ([id number]) 72703 EST. 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 PATIENT, LEVEL IV Diagnosis: Weakness[ICD10: R53.1] Diagnosis: Gout, unspecified[ICD10: M10.9] Diagnosis: Hypotension, unspecified[ICD10: I95.9] Lesley Butcher MD, [facility] CPT-4: 80950 12/16/2015 ([id number]) Patient admitted to the hospital from clinic (NO CHARGE) Diagnosis: Hypoxemia[ICD10: R09.02] Diagnosis: Weakness[ICD10: R53.1] Diagnosis: Dyspnea, unspecified[ICD10: R06.00] Mady Butcher MD, [facility] CPT- 4: 31747L 11/27/2015 ([id number]) 06504 EST. PATIENT, LEVEL III Diagnosis: Essential (primary) hypertension[ICD10: I10] Diagnosis: Gastro-esophageal reflux disease without esophagitis[ICD10: K21.9] [facility] CPT-4: 01264 07/30/2015 ([id number]) 33296 EST. PATIENT, LEVEL III Diagnosis: ESSENTIAL HYPERTENSION[ICD9: 401.9] [facility] CPT-4: 32868 06/09/2015 ([id number]) 81774 EST. PATIENT, LEVEL III Diagnosis: ESSENTIAL HYPERTENSION[ICD9: 401.9] [facility] CPT- 4: 09512 04/29/2015 ([id number]) OFFICE/OUTPATIENT VISIT NEW Diagnosis: ESSENTIAL HYPERTENSION[ICD9: 401.9] Diagnosis: DEPRESSIVE DISORDER NEC[ICD9: 311] Diagnosis: Enlarged prostate[ICD9: 600.00] Diagnosis: Nasal inflammation due to allergen[ICD9: 477.9] [facility] CPT-4: 46696 02/19/2015 Plan of Care Planned Activity Notes Codes Status Date Visit Plan: Afib-new diagnosis with cardiology -Dr Deleon -now on coumadin-will return to [place] in 2 weeks to discuss watchman device NUW-dnrudoweqw-fz changes Urinary frequency and urgency -check UA -patient unable to void at appt -will bring back sample 02/12/2019 Appointment: Merline Rose WPtel: [address] [place], [place] [phone] (30 min) [facility] 02/12/2019 Patient Education: Patient Medication Summary Completed [...] when he had previous blockages - his strategic alliances manager in [place] does not seem to be as interested as his family would like - they are wondering about transitioning back to someone from his previous strategic alliances manager group. They have a potential appt pending. [...] when he had previous blockages - his strategic alliances manager in [place] does not seem to be as interested as his family would like - they are wondering about transitioning back to someone from his previous strategic alliances manager group. They have a potential appt pending. I spent 45 minutes with the patient and his family in direct contact and discussion. 01/29/2019 Appointment: Lesley Butcher WPtel: [facility] (30 min) Complex 01/29/2019 Patient Education: Patient Medication Summary Completed 01/29/2019 Visit Plan: Left rib pain - x-ray pending - The pt is to use prn antiinflammatories to manage acute pain. The patient is to call the office if the pain is worsening or does not improve. 2019 Appointment[phone] [facility] ([facility] min) Complex 2019 Patient Education: Patient [...] allergy spray. 01/08/2019 Appointment: Merline Rose WPtel: [phone] [phone] (30 min) Complex 01/08/2019 Patient Education: Patient Medication Summary Completed 01/08/2019 Visit Plan: Fatigue, shortness of breath, dizziness - pt is to continue PT, pt is to follow up with Dr. Panda and Dr. Harvey and is to notify clinic with any changes in the current treatment plan. 12/25/2018 Appointment: Mady Dunne WPtel: [phone] [facility] (15 min) Moderate 12/25/2018 Patient Education: Patient Medication Summary Completed 12/25/2018 Visit Plan: Shortness of breath - Hx of sleep apnea - will need to get pt an overnight oxygen study - we will call [facility] to set him up for an overnight [...] 96% 12/13/2018 Appointment: Les[facility] Butcher [facility]Ptel[facility] [phone] [facility] (15 min) Moderate 12/13/2018 Patient Education: Patient Medication Summary Completed 12/13/2018 Visit Plan: CXA-fcyfxxf-frdeakxni of breath -patient reports worsening of chronic symptoms -will check EKG and cardiac enzymes to evaluate for acute changes -recommend patient follow up with his strategic alliances manager, Dr Sharyn vu -patient, and daughter verbalized understanding of plan. Generalized weakness-discussed PT referral after cleared by cardiology -patient's will call us when she wants to have it set up HTN-no change but monitor at home 11/27/2018 Appointment: Merline Rose WPtel: [phone] [phone] (15 min) Moderate 11/27/2018 Patient Education: Patient [...] sessions. 09/26/2018 Appointment: Les[facility] Butcher [facility]el[facility] [phone] [facility] (15 min) Moderate 09/26/2018 Patient Education: Patient [...] care surrogate. 08/10/2018 Appointment: [phone] [facility] - Annual Wellness Visit 08/10/2018 Patient [...] home. 07/26/2018 Appointment: Lesley Butcher WPtel: [phone] [facility] (15 min) Moderate 07/26/2018 Patient Education: [...] his dexamethasone. 06/12/2018 Appointment: Lesley Butcher WPtel: [phone] [facility] (15 min) Moderate 06/12/2018 Patient Education: Patient Medication Summary Completed 06/12/2018 Visit Plan: Diverticulosis with recent GI bleeding - improved - continue with supportive care, avoid foods which cause any abdominal pain - monitor symptoms - call if any pain or bleeding recurs. Anemia - check labs today. Weakness - continue with increasing of activity. 05/10/2018 Appointment: [facility] But[facility]el[phone] [facility] (30 min) Complex 05/10/2018 Patient Education: Patient [...] implant. 03/27/2018 Appointment: Lesley Butcher WPtel: [phone] [facility] (15 min) Moderate 03/27/2018 Patient Education: [...] to medications. 01/24/2018 Appointment: Lesley Butcher WPtel: [facility] (15 min) Moderate 01/24/2018 Patient Education: Patient Medication Summary Completed 01/24/2018 Visit Plan: Influenza - pt started on tamiflu - pt to start on anti-inflammatories, tylenol and monitor symptoms. Pt to call if not improving. Pt to alert any close contacts as to illness. 12/08/2017 Appointment: Mady Dunne WPtel[facility] (30 min) Complex 12/08/2017 Patient Education: Patient Medication Summary Completed 12/08/2017 Visit Plan: Hypertension - well controlled - continue with current medications, continue with no added salt diet. Pt has been encouraged to exercise daily. The pt has been advised to call the office if there are any acute concerns about change in blood pressure readings at home. 10/27/2017 Appointment: Lesley Butcher W[facility]el[facility] [phone] [facility] (15 min) Moderate 10/27/2017 Patient Education: Patient Medication Summary Completed 10/27/2017 Referral: External, Ordering Provider Referral Initiated 10/12/2017 Visit Plan: BPH - continue with dutasteride and flomax Dysphagia - referral to Dr. Kumar for EGD - question stricture - dysphagia intermittently - hx of stricture. 09/29/2017 Appointment: [facility] But[phone] (15 min) Moderate 09/29/2017 Patient Education: Patient Medication Summary Completed 09/29/2017 Care Plan: Referral Order SNOMED-CT : 260551814 Pending 09/29/2017 Visit Plan: Hypertension - well [...] recommended patient to have an evaluation at [facility] to see if he has potential for cochlear implant. 09/01/2017 Appointment: Les[facility] Butcher [facility]el[phone] [place] (15 min) Moderate 09/01/2017 Patient Education: Patient Medication Summary Completed 09/01/2017 Care Plan: Referral Order SNOMED-CT : [id number] Pending 09/01/2017 Visit Plan: Medicare Exam - [...] surrogate. 08/03/2017 App[facility]ment[phone] [facility] - Welcome to Medicare visit [...] current medications. 04/26/2017 Appointment: Lesley Butcher WPtel: [facility] [place] (15 min) Moderate 04/26/2017 Patient Education: Patient [...] daily. 01/25/2017 Appointment: Les[facility] Butcher [facility]Ptel[phone] [place] (30 min) Complex 01/25/2017 Patient Education: Patient [...] [place] 10/26/2016 Appointment: Lesley Butcher WPtel: [phone] [facility] (15 min) Moderate 10/26/2016 Patient Education: Patient [...] retention occur. 09/27/2016 Appointment: Lesley Butcher WPtel: [facility] (15 min) Moderate 09/27/2016 Patient Education: [...] shelli andrea 06/28/2016 Appointment: Lesley Butcher WPtel: [phone] [facility] (15 min) Moderate 06/28/2016 Patient Education: [...] 1 month 02/17/2016 Appointment: Merline Rose WPtel: [address] [place], [place] [id number] (30 min) Complex 02/17/2016 Patient Education: Patient [...] Completed 12/16/2015 Appointment: Lesley Butcher WPtel: [phone] [facility] (15 min) Moderate 12/04/2015 Appointment: Lesley Butcher WPtel: [phone] [facility] (15 min) Moderate 12/02/2015 Visit Plan: Admission [...] THE PHARMACY 07/30/2015 Appointment: Lesley Butcher WPtel: [facility] [place] [id number] (15 min) Moderate 07/30/2015 Patient Education: Patient [...] home. 04/29/2015 Appointment: Lesley Butcher WPtel: [phone] [facility] (15 min) Moderate 04/29/2015 Patient Education: [...] [place] Referral Appointment Requested Instructions Comment . Hypertension [...] eye drops-zaditor Menieres-increase dexamethasone x 1 month the light-headedness that [...] planned injection in back and call the tool filer about a biopsy of the lesion on [...] situational exposure. No change in current medications. CHECK UA TODAY . Afib-new diagnosis with cardiology -Dr Deleon -now on coumadin-will return to [place] in 2 weeks to discuss watchman device AYC-kuhcjvudrf-vd changes Urinary frequency and urgency -check UA -[facility] -will bring back sample . Hypertension - [...] change in blood pressure readings at home. RACHEL 180MG DAILY FOR ALLERGIES . Allergies [...] in the nasal steroid allergy spray. . Admission to Hospital - Dr. Butcher [...] AND EVALUATION OF THE ACUTE ILLNESS. CHECK CARDIAC ENYZMES AND EKG . WPE-jyxpeea-bcgkltafu of breath -patient reports worsening of chronic symptoms -will check EKG and cardiac enzymes to evaluate for acute changes -recommend patient follow up with his strategic alliances manager, Dr Stokes -patient, and daughter verbalized understanding of plan. Generalized weakness-discussed PT referral after cleared by cardiology - patient's will call us when she wants to have it set up HTN-no change but monitor at home the light-headedness that you are experiencing is [...] recommended patient to have an evaluation at [facility] to see if he has potential for cochlear implant. . BPH - continue with dutasteride and flomax Dysphagia - referral to Dr. Kmuar for EGD - question stricture - dysphagia [...] THE FLU SHOT AT THE PHARMACY . Hypertension - well controlled - continue [...] when he had previous blockages - his strategic alliances manager in [place] does not seem to be as interested as his family would like - they are wondering about transitioning back to someone from his previous strategic alliances manager group. They have a potential appt pending. [...] when he had previous blockages - his strategic alliances manager in [place] does not seem to be as interested as his family would like - they are wondering about transitioning back to someone from his previous strategic alliances manager group. They have a potential appt pending. I spent 45 minutes with the patient and his family in direct contact and discussion.
--- OUTSIDE RECORDS SUMMARY | 2019-03-23 19:25 | XMS REPORT | CCD ---
Author Author [facility] Organization [facility] Address [address] [place] [address] Phone Care Team Providers Care Mumps Developer Name Role Phone PP Unavailable CCM Unavailable Summary Purpose Interface Exchange Insurance Providers Payer name Policy type / Coverage type Covered constitution party ID Effective Begin Date Effective End Date WPS Medicare Part B Medicare Part B [id number] 2018 Unknown [facility] Medicare Part B [id number] 2018 Unknown Family history Father Diagnosis Age At Onset Hypertension Unknown Coronary Artery Disease Unknown Sister Diagnosis Age At Onset Heart disease Unknown Mother Diagnosis Age At Onset Coronary Artery Disease Unknown Hypertension Unknown Social History Social History Element Codes Description Effective Dates Marital status Unknown 02/19/2015 Number of children Unknown 2 02/19/2015 Employment Unknown Retired 02/19/[address]: 360735276 Has never smoked or chewed tobacco 02/19/2015 Alcohol history Unknown occasionally drinks alcohol 02/19/2015 Allergies, Adverse Reactions, Alerts Substance Reaction Codes Entered Date Inactivated Date Status bactrim RxNorm: 431708 12/19/2015 No Inactive Date Active ciprofloxacin RxNorm: 42163 02/18/2015 No Inactive Date Active Past Medical [...] Start Date Stop Date Status Fill Instructions Requip 0.25 mg tablet RxNorm: 970951 1 Tablet(s) PO QHS 01/29/2019 01/23/2020 Active Flomax 0.4 mg capsule RxNorm: 156908 TAKE 1 CAPSULE BY MOUTH ONCE DAILY IN THE EVENING 01/25/2019 No Stop Date Active Requip 0.25 mg tablet RxNorm: 862122 1 Tablet(s) PO QHS 2019 01/28/2019 Inactive pantoprazole 40 mg tablet,delayed release RxNorm: 134403 TAKE ONE TABLET BY MOUTH ONCE DAILY AT BEDTIME 11/27/2018 No Stop Date Active atorvastatin 40 mg tablet RxNorm: 099466 1 Tablet(s) PO daily 09/26/2018 10/25/2018 Inactive dexamethasone 0.5 mg tablet RxNorm: 355194 TAKE 1 TABLET BY MOUTH ONCE DAILY 08/29/2018 No Stop Date Active clonazepam 1 mg tablet RxNorm: 111844 1/2 Tablet(s) PO QHS 08/24/2018 12/21/2018 Inactive allopurinol 100 mg tablet RxNorm: 691601 TAKE ONE TABLET BY MOUTH ONCE DAILY 08/03/2018 No Stop Date Active citalopram 40 mg tablet RxNorm: 405149 TAKE ONE TABLET BY MOUTH ONCE DAILY 06/13/2018 No Stop Date Active Kenalog 40 mg/mL suspension for injection RxNorm: 0999198 Milliliter(s) Inj 06/12/2018 06/12/2018 Inactive clonazepam 1 mg tablet RxNorm: 858866 1 Tablet(s) PO QHS 06/12/2018 08/23/2018 Inactive losartan 50 mg tablet RxNorm: 220207 1/2 Tablet(s) PO daily 05/24/2018 No Stop Date Active clonazepam 1 mg tablet RxNorm: 403876 1/2 Tablet(s) TAKE ONE TABLET BY MOUTH ONCE DAILY AT BEDTIME AND ONE TABLET THREE TIMES DAILY NEEDED 05/24/2018 06/11/2018 Inactive citalopram 40 mg tablet RxNorm: 104031 1/2 Tablet(s) TAKE ONE TABLET BY MOUTH ONCE DAILY 05/24/2018 09/25/2018 Inactive spironolactone 25 mg tablet RxNorm: 325010 TAKE ONE TABLET BY MOUTH ONCE DAILY 05/22/2018 No Stop Date Active dexamethasone 0.5 mg tablet RxNorm: 761821 TAKE ONE TABLET BY MOUTH ONCE DAILY 02/21/2018 08/28/2018 Inactive Flomax 0.4 mg capsule RxNorm: 185253 TAKE ONE CAPSULE BY MOUTH ONCE DAILY IN THE EVENING 12/19/2017 01/24/2019 Inactive Tamiflu 75 mg capsule RxNorm: 715573 1 Capsule(s) PO BID 12/08/2017 12/12/2017 Inactive clonazepam 1 mg tablet RxNorm: 532217 Tablet(s) TAKE ONE TABLET BY MOUTH ONCE DAILY AT BEDTIME AND ONE TABLET THREE TIMES DAILY NEEDED 11/28/2017 01/26/2018 Inactive pantoprazole 40 mg tablet,delayed release RxNorm: 029668 TAKE ONE TABLET BY MOUTH ONCE DAILY AT BEDTIME 11/07/2017 11/26/2018 Inactive allopurinol 100 mg tablet RxNorm: 014931 TAKE ONE TABLET BY MOUTH ONCE DAILY 10/03/2017 08/02/2018 Inactive pantoprazole 40 mg tablet,delayed release RxNorm: 345724 1 Tablet(s) PO BID 09/01/2017 05/28/2018 Inactive Vitamin B-6 100 mg tablet RxNorm: 875260 1 Tablet(s) PO daily 09/01/2017 06/11/2018 Inactive dutasteride 0.5 mg capsule RxNorm: 460000 1 Capsule(s) PO QPM 09/01/2017 06/11/2018 Inactive spironolactone 25 mg tablet RxNorm: 298187 TAKE ONE TABLET BY MOUTH ONCE DAILY 08/15/2017 05/21/2018 Inactive citalopram 40 mg tablet RxNorm: 325431 TAKE ONE TABLET BY MOUTH ONCE DAILY 08/08/2017 05/04/2018 Inactive dexamethasone 0.5 mg tablet RxNorm: 413995 TAKE ONE TABLET BY MOUTH ONCE DAILY 08/08/2017 11/05/2017 Inactive clonazepam 1 mg tablet RxNorm: 774878 TAKE ONE TABLET BY MOUTH ONCE DAILY AT BEDTIME AND ONE THREE TIMES DAILY NEEDED 05/12/2017 08/08/2017 Inactive clonazepam 1 mg tablet RxNorm: 962883 1 Tablet(s) PO QHS AND 1 TAB PO TID PRN 05/12/2017 05/13/2017 Inactive oxybutynin chloride ER 10 mg tablet,extended release 24 hr RxNorm: 466779 1 Tablet(s) PO daily 04/29/2017 08/02/2017 Inactive dexamethasone 0.5 mg tablet RxNorm: 284707 TAKE ONE TABLET BY MOUTH ONCE DAILY 02/14/2017 04/14/2017 Inactive Flomax 0.4 mg capsule RxNorm: 145106 TAKE ONE CAPSULE BY MOUTH ONCE DAILY IN THE EVENING 02/14/2017 11/10/2017 Inactive pantoprazole 40 mg tablet,delayed release RxNorm: 263345 TAKE ONE TABLET BY MOUTH ONCE DAILY AT BEDTIME 02/14/2017 08/31/2017 Inactive oxybutynin chloride ER 10 mg tablet,extended release 24 hr RxNorm: 609334 1 Tablet(s) PO daily 01/25/2017 04/24/2017 Inactive dexamethasone 0.5 mg tablet RxNorm: 422723 TAKE ONE TABLET BY MOUTH ONCE DAILY 11/10/2016 12/09/2016 Inactive oxybutynin chloride ER 5 mg tablet,extended release 24 hr RxNorm: 423561 1 Tablet(s) PO daily 10/28/2016 10/27/2016 Inactive oxybutynin chloride ER 5 mg tablet,extended release 24 hr RxNorm: 700558 1 Tablet(s) PO daily 10/28/2016 01/24/2017 Inactive Detrol LA 2 mg capsule,extended release RxNorm: 197513 1 Capsule(s) PO QPM 10/26/2016 10/27/2016 Inactive clonazepam 1 mg tablet RxNorm: 476912 1 Tablet(s) PO QHS AND 1 TAB PO TID PRN 10/20/2016 04/17/2017 Inactive dexamethasone 0.5 mg tablet RxNorm: 097973 TAKE ONE TABLET BY MOUTH ONCE DAILY 10/06/2016 11/04/2016 Inactive allopurinol 100 mg tablet RxNorm: 001902 1 Tablet(s) PO daily 09/30/2016 09/24/2017 Inactive Vesicare 5 mg tablet RxNorm: 493436 1 Tablet(s) PO QPM 09/27/2016 12/12/2016 Inactive spironolactone 25 mg tablet RxNorm: 646612 1 Tablet(s) PO daily 08/06/2016 07/31/2017 Inactive citalopram 40 mg tablet RxNorm: 579885 1 Tablet(s) PO daily 06/28/2016 06/22/2017 Inactive iron ER 159 mg (45 mg iron) tablet,extended release RxNorm: 551199 1 Tablet(s) PO daily 04/27/2016 08/31/2017 Inactive dexamethasone 0.5 mg tablet RxNorm: 397956 1/2 Tablet(s) PO daily 04/27/2016 02/20/2018 Inactive allopurinol 100 mg tablet RxNorm: 133740 1 Tablet(s) PO daily 04/27/2016 09/29/2016 Inactive Plavix 75 mg tablet RxNorm: 929572 1 Tablet(s) PO daily 04/27/2016 02/11/2019 Inactive clonazepam 1 mg tablet RxNorm: 335528 1 Tablet(s) PO QHS and 1 tab po TID prn 04/14/2016 10/07/2016 Inactive allopurinol 100 mg tablet RxNorm: 538372 1 Tablet(s) PO daily 02/17/2016 04/26/2016 Inactive citalopram 20 mg tablet RxNorm: 941163 1 Tablet(s) PO daily 01/20/2016 06/27/2016 Inactive Flomax 0.4 mg capsule RxNorm: 839173 1 Capsule(s) PO QPM 01/20/2016 01/13/2017 Inactive [SAVINGS FOR NON-COVERED DRUGS -- BIN:[id number], PCN: ASPROD1, Group: XXXXX, ID# XXXXXXX, Questions: . THIS IS NOT INSURANCE.] pantoprazole 40 mg tablet,delayed release RxNorm: 295894 1 Tablet(s) PO QHS 01/20/2016 01/13/2017 Inactive Colcrys 0.6 mg tablet RxNorm: 070887 1 Tablet(s) PO daily 01/06/2016 03/05/2016 Inactive take daily x 7 days then daily as needed for gout flair colchicine 0.6 mg tablet RxNorm: 050081 1 Tablet(s) PO BID 12/30/2015 01/01/2016 Inactive doxycycline hyclate 100 mg tablet RxNorm: 535548 1 Tablet(s) PO BID 12/19/2015 12/28/2015 Inactive doxycycline hyclate 100 mg tablet RxNorm: 034291 1 Tablet(s) PO BID 12/19/2015 12/18/2015 Inactive allopurinol 100 mg tablet RxNorm: 113049 1 Tablet(s) PO daily 12/16/2015 02/16/2016 Inactive colchicine 0.6 mg tablet RxNorm: 850242 Tablet(s) PO 1.2 mg PO in the morning and 0.6 mg at night for 2 days. 12/16/2015 12/29/2015 Inactive allopurinol 100 mg tablet RxNorm: 281325 1 Tablet(s) PO daily 12/16/2015 12/15/2015 Inactive Protonix 40 mg tablet,delayed release RxNorm: 319771 1 Tablet(s) PO daily 12/16/2015 01/14/2016 Inactive Bactrim DS 800 mg-160 mg tablet RxNorm: 224850 1 Tablet(s) PO BID 12/16/2015 12/18/2015 Inactive colchicine 0.6 mg tablet RxNorm: 850274 Tablet(s) PO 1.2 mg for the first dose and 0.6 mg an hour after 12/15/2015 12/15/2015 Inactive dexamethasone 0.5 mg tablet RxNorm: 223808 1 Tablet(s) PO 12/12/2015 02/09/2016 Inactive Plavix 75 mg tablet RxNorm: 449251 1 Tablet(s) PO every other day 12/12/2015 04/09/2016 Inactive nitroglycerin 0.4 mg sublingual tablet RxNorm: 773345 1 Tablet(s) SL x3 in 15 min as needed 12/12/2015 04/26/2016 Inactive clonazepam 1 mg tablet RxNorm: 483712 1 Tablet(s) PO QHS and 1 tab po TID prn 12/11/2015 12/03/2016 Inactive Alexis 5 mg-325 mg tablet RxNorm: 321975 1-2 Tablet(s) PO Q6 as needed 12/11/2015 09/26/2016 Inactive clonazepam 1 mg tablet RxNorm: 094559 1 Tablet(s) PO QHS and 1 tab po TID prn 12/04/2015 12/10/2015 Inactive Flomax 0.4 mg capsule RxNorm: 140890 1 Capsule(s) PO QPM 09/22/2015 01/19/2016 Inactive [SAVINGS FOR NON-COVERED DRUGS -- BIN:[id number], PCN: ASPROD1, Group: XXXXX, ID# XXXXXXX, Questions: . THIS IS NOT INSURANCE.] Flomax 0.4 mg capsule RxNorm: 330696 1 Capsule(s) PO QPM 09/16/2015 09/21/2015 Inactive [SAVINGS FOR NON-COVERED DRUGS -- BIN:[id number], PCN: ASPROD1, Group: XXXXX, ID# XXXXXXX, Questions: . THIS IS NOT INSURANCE.] clonazepam 1 mg tablet RxNorm: 039270 1 Tablet(s) PO QHS 08/29/2015 12/03/2015 Inactive coenzyme Q10 10 mg tablet RxNorm: 322986 1 Tablet(s) PO daily 07/30/2015 01/05/2016 Inactive spironolactone 25 mg tablet RxNorm: 624625 1 Tablet(s) PO daily 07/28/2015 07/21/2016 Inactive spironolactone 25 mg tablet RxNorm: 124077 1 Tablet(s) PO daily 07/22/2015 07/27/2015 Inactive clonazepam 1 mg tablet RxNorm: 040358 1 Tablet(s) PO QHS 05/23/2015 08/28/2015 Inactive losartan 25 mg tablet RxNorm: 914840 1 Tablet(s) PO daily 02/19/2015 03/20/2015 Inactive Flonase Allergy Relief 50 mcg/actuation nasal spray,suspension RxNorm: 1 [place] NASAL BID 02/19/2015 04/26/2016 Inactive [SAVINGS FOR NON-COVERED DRUGS -- BIN:[id number], PCN: ASPROD1, Group: XXXXX, ID# XXXXXXX, Questions: . THIS IS NOT INSURANCE.] Flomax 0.4 mg capsule RxNorm: 037689 1 Capsule(s) PO QPM 02/19/2015 09/15/2015 Inactive [SAVINGS FOR NON-COVERED DRUGS -- BIN:381339, PCN: ASPROD1, Group: XXXXX, ID# XXXXXXX, Questions: . THIS IS NOT INSURANCE.] citalopram 20 mg tablet RxNorm: 654764 1 Tablet(s) PO daily 02/19/2015 03/20/2015 Inactive atenolol 25 mg tablet RxNorm: 080748 1 Tablet(s) PO daily 02/19/2015 03/20/2015 Inactive Lipitor 20 mg tablet RxNorm: 631290 1 Tablet(s) PO daily 02/19/2015 03/20/2015 Inactive vitamin B complex oral RxNorm: 50887 oral No Start Date Active Rachel oral RxNorm: 351562 oral No Start Date Active Lipitor oral RxNorm: 14796 oral No Start Date Active warfarin 3 mg tablet RxNorm: 973964 1 Tablet(s) PO daily No Start Date Active managed by structures engineer Dr Deleon aspirin 81 mg capsule,delayed release RxNorm: 908805 1 Capsule(s) PO daily No Start Date Active Aleve 220 mg tablet RxNorm: 603038 Tablet(s) PO as needed No Start Date Active Vitamin D3 1,000 unit capsule RxNorm: 766050 2 Capsule(s) PO daily No Start Date Active Centrum Complete oral RxNorm: 26029 oral No Start Date Active Carafate 1 gram tablet RxNorm: 777187 1 Tablet(s) PO every other day No Start Date Active glucosamine HCl 1,500 mg tablet RxNorm: 365987 1 Tablet(s) with 1200 mg chrondroitin PO daily No Start Date 08/01/2018 Inactive Claritin-D 24 Hour oral RxNorm: 549618 oral No Start Date 01/07/2019 Inactive ranitidine 150 mg tablet RxNorm: 021343 1 Tablet(s) PO TID No Start Date 12/11/2015 Inactive Alexis 5 mg-325 mg tablet RxNorm: 934756 1-2 Tablet(s) PO Q6 as needed No Start Date 12/10/2015 Inactive krill oil oral RxNorm: 72199 oral No Start Date 08/07/2018 Inactive Vitamin B-6 100 mg tablet RxNorm: 480654 1 Tablet(s) PO TID No Start Date 08/31/2017 Inactive spironolactone 25 mg tablet RxNorm: 860156 1 Tablet(s) PO daily No Start Date 07/21/2015 Inactive Vitamin D3 oral RxNorm: 2418 oral No Start Date 02/17/2016 Inactive clonazepam 1 mg tablet RxNorm: 035877 1 Tablet(s) PO daily No Start Date 05/22/2015 Inactive Glucosamine oral RxNorm: 4845 oral No Start Date 04/26/2016 Inactive cetirizine 10 mg tablet RxNorm: 8765839 1 Tablet(s) PO daily No Start Date 01/07/2019 Inactive losartan 50 mg tablet RxNorm: 993859 1 Tablet(s) PO daily No Start Date 05/23/2018 Inactive Plavix 75 mg tablet RxNorm: 938113 1 Tablet(s) PO every other day No Start Date 12/11/2015 Inactive Osteo Bi-Flex oral RxNorm: 8811661 oral No Start Date 09/01/2017 Inactive iron ER 159 mg (45 mg iron) tablet,extended release RxNorm: 585046 1 Tablet(s) PO BID No Start Date 04/26/2016 Inactive amlodipine 5 mg tablet RxNorm: 250729 1 Tablet(s) PO daily No Start Date 01/05/2016 Inactive aspirin 81 mg tablet,delayed release RxNorm: 500158 1 Tablet(s) PO daily No Start Date 05/09/2018 Inactive dexamethasone 0.5 mg tablet RxNorm: 777053 1 Tablet(s) PO No Start Date 12/11/2015 Inactive Vitamin B-12 1,000 mcg tablet RxNorm: 154786 6 Tablet(s) PO every other day No Start Date 06/11/2018 Inactive colchicine 0.6 mg tablet RxNorm: 510755 Tablet(s) PO 1.2 mg for the first dose and 0.6 mg an hour after No Start Date 12/14/2015 Inactive nitroglycerin 0.4 mg sublingual tablet RxNorm: 794042 1 Tablet(s) SL x3 in 15 min as needed No Start Date 12/11/2015 Inactive Fish Oil 1,000 mg capsule RxNorm: 1 Capsule(s) PO daily No Start Date 04/26/2016 Inactive Ecotrin Low Strength 81 mg tablet,enteric coated RxNorm: 2992263 1 Tablet(s) PO daily No Start Date 09/27/2016 Inactive Medication Administered Medication Codes Instructions Start Date Status Kenalog 40 mg/mL suspension for injection RxNorm: 1415563 Milliliter 06/12/2018 No longer Active Immunizations Vaccine [...] 30.4 pg 10/20/2018 Cbc With Differential Ord2 [place]% 5.7 % 10/20/2018 Cbc With Differential Ord2 [...] 1.69 K/ul 10/20/2018 Cbc With Differential Ord2 [place] ABS# 0.6 K/ul 10/20/2018 Cbc With Differential Ord2 Eos ABS# 0.0 K/ul 10/20/2018 Cbc With Differential Ord2 Baso ABS# 0.0 K/ul 10/20/2018 Comp Metabolic Uli215 NA 140 mEq/L 10/20/2018 Comp Metabolic Jjw490 K 4.0 mEq/L 10/20/2018 Comp Metabolic Cir932 CL 104 mEq/L 10/20/2018 Comp Metabolic Wxn217 CO2 28.0 mEq/L 10/20/2018 Comp Metabolic Obh165 ANION GAP 12 10/20/2018 Comp Metabolic Abs593 GLUCOSE 113 mg/dL 10/20/2018 Comp Metabolic Gau748 Creat 1.0 mg/dL 10/20/2018 Comp Metabolic Gjk462 eGFR 75 ml/min/1.73m2 10/20/2018 Comp Metabolic Bil433 BUN 18 mg/dL 10/20/2018 Comp Metabolic Hem633 B/C Ratio 17.8 Ratio 10/20/2018 Comp Metabolic Eoa812 CALCIUM 9.8 mg/dL 10/20/2018 Comp Metabolic Hxp974 ALK PHOS 70 U/L 10/20/2018 Comp Metabolic Lqe345 AST(SGOT) 15 U/L 10/20/2018 Comp Metabolic Vyz266 ALT(SGPT) 18 U/L 10/20/2018 Comp Metabolic Sfe018 BILI T 1.1 mg/dL 10/20/2018 Comp Metabolic Gar327 ALBUMIN 4.4 g/dL 10/20/2018 Comp Metabolic Toi460 TPRO 6.9 g/dL 10/20/2018 Comp Metabolic Hir530 GLOB 2.5 g/dL 10/20/2018 Comp Metabolic Lyr049 A/G Ratio 1.7 Ratio 10/20/2018 Comp Metabolic Fkc283 Osmo 282 mOsmo 10/20/2018 Urinalysis Ord28 U-Color [...] 29.0 pg 07/14/2018 Cbc With Differential Ord2 [place]% 7.5 % 07/14/2018 Cbc With Differential Ord2 [...] 1.92 K/ul 07/14/2018 Cbc With Differential Ord2 [place] ABS# 0.4 K/ul 07/14/2018 Cbc With Differential Ord2 Eos ABS# 0.2 K/ul 07/14/2018 Cbc With Differential Ord2 Baso ABS# 0.0 K/ul 07/14/2018 Renal Njg198 NA 140 mEq/L 07/14/2018 Renal Qgp124 K 4.2 mEq/L 07/14/2018 Renal Kpr305 CL 103 mEq/L 07/14/2018 Renal Fnf564 CO2 29.0 mEq/L 07/14/2018 Renal Ndd752 ANION GAP 12 07/14/2018 Renal Xem995 Osmo 280 mOsmo 07/14/2018 Renal Crg481 GLUCOSE 95 mg/dL 07/14/2018 Renal Acv303 BUN 15 mg/dL 07/14/2018 Renal Xil891 Creat 1.2 mg/dL 07/14/2018 Renal Ebq482 eGFR 64 ml/min/1.73m2 07/14/2018 Renal Ygm769 B/C Ratio 12.8 Ratio 07/14/2018 Renal Sok978 CALCIUM 9.6 mg/dL 07/14/2018 Renal Hiy472 PHOS 3.2 mg/dL 07/14/2018 Renal Azj662 ALBUMIN 4.4 g/dL 07/14/2018 Magnesium Ord90 Mag [...] 29.7 pg 06/08/2018 Cbc With Differential Ord2 [place]% 8.7 % 06/08/2018 Cbc With Differential Ord2 [...] 2.14 K/ul 06/08/2018 Cbc With Differential Ord2 [place] ABS# 0.5 K/ul 06/08/2018 Cbc With Differential Ord2 Eos ABS# 0.2 K/ul 06/08/2018 Cbc With Differential Ord2 Baso ABS# 0.0 K/ul 06/08/2018 Comp Metabolic Duv483 NA 139 mEq/L 06/08/2018 Comp Metabolic Exl899 K 4.6 mEq/L 06/08/2018 Comp Metabolic Xwi987 CL 105 mEq/L 06/08/2018 Comp Metabolic Vrb481 CO2 26.0 mEq/L 06/08/2018 Comp Metabolic Wyw875 ANION GAP 13 06/08/2018 Comp Metabolic Hiy128 GLUCOSE 95 mg/dL 06/08/2018 Comp Metabolic Ocf872 Creat 1.2 mg/dL 06/08/2018 Comp Metabolic Vdu572 eGFR 59 ml/min/1.73m2 06/08/2018 Comp Metabolic Rdq147 BUN 12 mg/dL 06/08/2018 Comp Metabolic Ttb648 B/C Ratio 9.7 Ratio 06/08/2018 Comp Metabolic Vyz890 CALCIUM 9.9 mg/dL 06/08/2018 Comp Metabolic Cnk052 ALK PHOS 70 U/L 06/08/2018 Comp Metabolic Tlu864 AST(SGOT) 21 U/L 06/08/2018 Comp Metabolic Fbg119 ALT(SGPT) 20 U/L 06/08/2018 Comp Metabolic Srf103 BILI T 1.0 mg/dL 06/08/2018 Comp Metabolic Npf786 ALBUMIN 4.5 g/dL 06/08/2018 Comp Metabolic Bps959 TPRO 7.2 g/dL 06/08/2018 Comp Metabolic Ace495 GLOB 2.8 g/dL 06/08/2018 Comp Metabolic Pzk522 A/G Ratio 1.6 Ratio 06/08/2018 Comp Metabolic Czs117 Osmo 277 mOsmo 06/08/2018 Cbc With Differential [...] 30.6 pg 05/10/2018 Cbc With Differential Ord2 [place]% 6.5 % 05/10/2018 Cbc With Differential Ord2 [...] 1.94 K/ul 05/10/2018 Cbc With Differential Ord2 [place] ABS# 0.4 K/ul 05/10/2018 Cbc With Differential [...] Ord30 C/HDL 4.2 Ratio 01/26/2018 Comp Metabolic Jij276 NA 138 mEq/L 01/26/2018 Comp Metabolic Upu067 K 4.2 mEq/L 01/26/2018 Comp Metabolic Bzy186 CL 105 mEq/L 01/26/2018 Comp Metabolic Fqn714 CO2 23.0 mEq/L 01/26/2018 Comp Metabolic Xjl548 ANION GAP 14 01/26/2018 Comp Metabolic Vst805 GLUCOSE 89 mg/dL 01/26/2018 Comp Metabolic Bfs465 Creat 1.1 mg/dL 01/26/2018 Comp Metabolic Vqx229 eGFR 70 ml/min/1.73m2 01/26/2018 Comp Metabolic Ahn630 BUN 18 mg/dL 01/26/2018 Comp Metabolic Hcx395 B/C Ratio 16.8 Ratio 01/26/2018 Comp Metabolic Wpo377 CALCIUM 9.2 mg/dL 01/26/2018 Comp Metabolic Qmn966 ALK PHOS 67 U/L 01/26/2018 Comp Metabolic Ruk571 AST(SGOT) 31 U/L 01/26/2018 Comp Metabolic Mvr180 ALT(SGPT) 23 U/L 01/26/2018 Comp Metabolic Unk358 BILI T 1.7 mg/dL 01/26/2018 Comp Metabolic Ldc292 ALBUMIN 3.9 g/dL 01/26/2018 Comp Metabolic Hfp252 TPRO 6.7 g/dL 01/26/2018 Comp Metabolic Evc346 GLOB 2.8 g/dL 01/26/2018 Comp Metabolic Nha393 A/G Ratio 1.4 Ratio 01/26/2018 Comp Metabolic Aue270 Osmo 277 mOsmo 01/26/2018 Cbc With Differential [...] 30.7 pg 01/26/2018 Cbc With Differential Ord2 [place]% 7.1 % 01/26/2018 Cbc With Differential Ord2 [...] 2.40 K/ul 01/26/2018 Cbc With Differential Ord2 [place] ABS# 0.5 K/ul 01/26/2018 Cbc With Differential Ord2 Eos ABS# 0.2 K/ul 01/26/2018 Cbc With Differential Ord2 Baso ABS# 0.0 K/ul 01/26/2018 Tsh Ord6 TSH (3rd IS) 1.81 uIU/mL 01/26/2018 Testosterone Rxs658 Testo 370.3 ng/dL 01/26/2018 C A/B FLU [id number] Influenza A Scr Negative 12/08/2017 C A/B FLU [id number] Influenza B Scr Negative 12/08/2017 C A/B FLU [id number] Influenza Intrp B AG:PRID:PT:NOSE:NOM:IF See Footnote 12/08/2017 [...] 30.8 pg 04/11/2017 Cbc With Differential Ord2 [place]% 8.1 % 04/11/2017 Cbc With Differential Ord2 [...] 1.91 K/ul 04/11/2017 Cbc With Differential Ord2 [place] ABS# 0.5 K/ul 04/11/2017 Cbc With Differential Ord2 Eos ABS# 0.2 K/ul 04/11/2017 Cbc With Differential Ord2 Baso ABS# 0.0 K/ul 04/11/2017 Comp Metabolic Nyd247 NA 140 mEq/L 04/11/2017 Comp Metabolic Oyg053 K 4.1 mEq/L 04/11/2017 Comp Metabolic Mbe945 CL 105 mEq/L 04/11/2017 Comp Metabolic Mli565 CO2 26.0 mEq/L 04/11/2017 Comp Metabolic Vay950 ANION GAP 13 04/11/2017 Comp Metabolic Zkt436 GLUCOSE 88 mg/dL 04/11/2017 Comp Metabolic Bdh475 Creat 1.1 mg/dL 04/11/2017 Comp Metabolic Anc265 eGFR 66 ml/min/1.73m2 04/11/2017 Comp Metabolic Vdv287 BUN 18 mg/dL 04/11/2017 Comp Metabolic Bzw492 B/C Ratio 15.9 Ratio 04/11/2017 Comp Metabolic Ggu885 CALCIUM 9.0 mg/dL 04/11/2017 Comp Metabolic Hlj373 ALK PHOS 72 U/L 04/11/2017 Comp Metabolic Ykz922 AST(SGOT) 22 U/L 04/11/2017 Comp Metabolic Sao107 ALT(SGPT) 26 U/L 04/11/2017 Comp Metabolic Xww494 BILI T 1.0 mg/dL 04/11/2017 Comp Metabolic Nca900 ALBUMIN 4.0 g/dL 04/11/2017 Comp Metabolic Lum593 TPRO 6.4 g/dL 04/11/2017 Comp Metabolic Dmg713 GLOB 2.4 g/dL 04/11/2017 Comp Metabolic Eyo945 A/G Ratio 1.6 Ratio 04/11/2017 Comp Metabolic Req723 Osmo 281 mOsmo 04/11/2017 Vitamin D 25 Oh Pgy7217 VITAMIN D, 25 HYDROXY 65.52 ng/mL 05/19/2016 [...] 28.5 pg 05/18/2016 Cbc With Differential Ord2 [place]% 7.2 % 05/18/2016 Cbc With Differential Ord2 [...] 1.80 K/ul 05/18/2016 Cbc With Differential Ord2 [place] ABS# 0.4 K/ul 05/18/2016 Cbc With Differential Ord2 Eos ABS# 0.2 K/ul 05/18/2016 Cbc With Differential Ord2 Baso ABS# 0.0 K/ul 05/18/2016 Magnesium Ord90 Mag 2.0 mg/dL 05/18/2016 Renal Eza125 NA 139 mEq/L 05/18/2016 Renal Irb316 K 4.0 mEq/L 05/18/2016 Renal Mmh244 CL 104 mEq/L 05/18/2016 Renal Zpm662 CO2 27.0 mEq/L 05/18/2016 Renal Iix347 ANION GAP 12 05/18/2016 Renal Aja595 Osmo 279 mOsmo 05/18/2016 Renal Ybu580 GLUCOSE 91 mg/dL 05/18/2016 Renal Uih786 BUN 18 mg/dL 05/18/2016 Renal Ixc505 Creat 1.3 mg/dL 05/18/2016 Renal Yro254 eGFR 59 ml/min/1.73m2 05/18/2016 Renal Knt340 B/C Ratio 14.3 Ratio 05/18/2016 Renal Dux010 CALCIUM 9.3 mg/dL 05/18/2016 Renal Jlb377 PHOS 3.2 mg/dL 05/18/2016 Renal Gsa290 ALBUMIN 4.2 g/dL 05/18/2016 Random Urine Protein/Creatinine Ratio Jln3143 U Prot 15.0 mg/dl 05/18/2016 Random Urine Protein/Creatinine Ratio Fjp5746 U CREAT 141.0 mg/dL 05/18/2016 Random Urine Protein/Creatinine Ratio Osk2880 R MTP/Creat Ratio 0.11 05/18/2016 Urinalysis Ord28 [...] 28.5 pg 02/19/2016 Cbc With Differential Ord2 [place]% 9.5 % 02/19/2016 Cbc With Differential Ord2 [...] 1.91 K/ul 02/19/2016 Cbc With Differential Ord2 [place] ABS# 0.5 K/ul 02/19/2016 Cbc With Differential Ord2 Eos ABS# 0.2 K/ul 02/19/2016 Cbc With Differential Ord2 Baso ABS# 0.0 K/ul 02/19/2016 Cbc With Differential Ord2 New Analyzer Notice Please note new ref ranges starting 10-29-2015 due to implemntation of new five part differential hematolgy analyzer. 02/19/2016 Tsh Ord6 hTSH II 2.10 uIU/mL 02/19/2016 Comp Metabolic Aya776 NA 138 mEq/L 02/19/2016 Comp Metabolic Jrn461 K 3.8 mEq/L 02/19/2016 Comp Metabolic Qot048 CL 103 mEq/L 02/19/2016 Comp Metabolic Ece236 CO2 28.0 mEq/L 02/19/2016 Comp Metabolic Kbw973 ANION GAP 11 02/19/2016 Comp Metabolic Gzf239 GLUCOSE 94 mg/dL 02/19/2016 Comp Metabolic Eyz040 Creat 1.0 mg/dL 02/19/2016 Comp Metabolic Vzr929 eGFR 75 ml/min/1.73m2 02/19/2016 Comp Metabolic Oem891 BUN 18 mg/dL 02/19/2016 Comp Metabolic Xyt115 B/C Ratio 17.6 Ratio 02/19/2016 Comp Metabolic Jkt232 CALCIUM 9.6 mg/dL 02/19/2016 Comp Metabolic Eli656 ALK PHOS 93 U/L 02/19/2016 Comp Metabolic Yjx740 AST(SGOT) 23 U/L 02/19/2016 Comp Metabolic Isp627 ALT(SGPT) 19 U/L 02/19/2016 Comp Metabolic Mtw952 BILI T 0.8 mg/dL 02/19/2016 Comp Metabolic Jin592 ALBUMIN 4.1 g/dL 02/19/2016 Comp Metabolic Jmp353 TPRO 6.8 g/dL 02/19/2016 Comp Metabolic Obr125 GLOB 2.7 g/dL 02/19/2016 Comp Metabolic Etl345 A/G Ratio 1.5 Ratio 02/19/2016 Comp Metabolic Yxj530 Osmo 277 mOsmo 02/19/2016 Uric Acid Ord77 Uric A 6.0 mg/dL 02/19/2016 Total Psa Ord10 PSA 0.82 ng/mL 02/19/2016 Comp Metabolic Sig160 NA 140 mEq/L 12/16/2015 Comp Metabolic Aui715 K 4.0 mEq/L 12/16/2015 Comp Metabolic Wha734 CL 105 mEq/L 12/16/2015 Comp Metabolic Uwa489 CO2 24.0 mEq/L 12/16/2015 Comp Metabolic Msc305 ANION GAP 15 12/16/2015 Comp Metabolic Dkc865 GLUCOSE 85 mg/dL 12/16/2015 Comp Metabolic Fga684 Creat 1.2 mg/dL 12/16/2015 Comp Metabolic Ujf602 eGFR 65 ml/min/1.73m2 12/16/2015 Comp Metabolic Tgr561 BUN 14 mg/dL 12/16/2015 Comp Metabolic Fpg883 B/C Ratio 12.1 Ratio 12/16/2015 Comp Metabolic Uiv288 CALCIUM 9.1 mg/dL 12/16/2015 Comp Metabolic Dbc122 ALK PHOS 162 U/L 12/16/2015 Comp Metabolic Kmq336 AST(SGOT) 14 U/L 12/16/2015 Comp Metabolic Qsi016 ALT(SGPT) 17 U/L 12/16/2015 Comp Metabolic Avk365 BILI T 1.0 mg/dL 12/16/2015 Comp Metabolic Okr013 ALBUMIN 3.4 g/dL 12/16/2015 Comp Metabolic Zzv158 TPRO 6.2 g/dL 12/16/2015 Comp Metabolic Fcp615 GLOB 2.9 g/dL 12/16/2015 Comp Metabolic Uhl860 A/G Ratio 1.2 Ratio 12/16/2015 Comp Metabolic Qfy455 Osmo 279 mOsmo 12/16/2015 Uric Acid Ord77 [...] 29.9 % 12/16/2015 Cbc With Differential Ord2 [place]% 7.5 % 12/16/2015 Cbc With Differential Ord2 [...] 1.52 K/ul 12/16/2015 Cbc With Differential Ord2 [place] ABS# 0.4 K/ul 12/16/2015 Cbc With Differential [...] C/HDL 4.0 Ratio 07/21/2015 Urine Protein 24Hr Bzt287 U Prot 5.1 mg/dl 05/16/2015 Urine Protein 24Hr Ykw096 U Prot24 71.5 mg/24hr 05/16/2015 Total Volume Urine Vkj413 TV/24hr 1400 ml 05/16/2015 Total Psa Ord10 PSA 0.70 ng/mL 05/15/2015 Renal Iqx361 NA 135 mEq/L 05/15/2015 Renal Xuc149 K 3.9 mEq/L 05/15/2015 Renal Kwc463 CL 101 mEq/L 05/15/2015 Renal Qlw053 CO2 27.0 mEq/L 05/15/2015 Renal Sdl299 ANION GAP 11 05/15/2015 Renal Iun689 Osmo 274 mOsmo 05/15/2015 Renal Lve360 GLUCOSE 132 mg/dL 05/15/2015 Renal Zmh758 BUN 19 mg/dL 05/15/2015 Renal Fvv896 Creat 1.1 mg/dL 05/15/2015 Renal Omt052 eGFR 67 ml/min/1.73m2 05/15/2015 Renal Rqw145 B/C Ratio 17.0 Ratio 05/15/2015 Renal Ygg417 CALCIUM 9.6 mg/dL 05/15/2015 Renal Udt455 PHOS 3.0 mg/dL 05/15/2015 Renal Lfu158 ALBUMIN 4.3 g/dL 05/15/2015 Cbc With Differential [...] clear 01/08/2019 None Full Exam - General 1995 Ears/Nose/Throat oral cavity/pharynx/larynx Overall: oropharyngeal mucosa clear 01/08/2019 None Full Exam - General 1995 Ears/Nose/Throat oral cavity/pharynx/larynx Overall: hypopharynx benign 01/08/2019 [...] Formatting Model/CDA Sections, Assigned to/Sharee Ramirez CPT-4: [id number] 07/05/2018 THER/PROPH/DIAG INJ SC/IM CPT-4: 62298 06/12/2018 TRIAMCINOLONE ACET INJ NOS CPT-4: J3301 06/12/2018 PPPS, SUBSEQ VISIT CPT- 4: G0439 08/03/2017 ADMIN INFLUENZA VIRUS VAC CPT-4: G0008 06/28/2016 FLU VACC PRSV FREE INC ANTIG CPT-4: 68148 06/28/2016 TENIVAC TD VACCINE NO PRSRV 7/> IM CPT-4: 84348 06/28/2016 OCCULT BLOOD FECES CPT- 4: 14230 02/19/2015 Vital Signs Date Vital 02/12/2019 Blood Pressure 1: 110/70 Code: 8480-6 BMI: 28.5 Code: 96874-6 Heart Rate 1: 70 bpm Height: 6' SpO2: 93% Weight: 210 lbs 01/29/2019 Blood Pressure 1: 110/78 Code: 8480-6 BMI: 28.5 Code: 72654-6 Heart Rate 1: 98 bpm Height: 6' SpO2: 90% Weight: 210 lbs 2019 Blood Pressure 1: 136/74 Code: 8480-6 BMI: 28.6 Code: 11614-1 Heart Rate 1: 97 bpm Height: 6' SpO2: 94% Weight: 211 lbs 01/08/2019 Blood Pressure 1: 128/86 Code: 8480-6 BMI: 28.6 Code: 68178-9 Heart Rate 1: 96 bpm Height: 6' SpO2: 97% Weight: 211 lbs 12/25/2018 Blood Pressure 1: 112/62 Code: 8480-6 BMI: 28.6 Code: 59741-7 Heart Rate 1: 76 bpm Height: 6' SpO2: 96% Weight: 211 lbs 12/13/2018 Blood Pressure 1: 114/78 Code: 8480-6 BMI: 29.4 Code: 05780-1 Heart Rate 1: 73 bpm Height: 6' SpO2: 93% Weight: 217 lbs 11/27/2018 Blood Pressure 1: 110/70 Code: 8480-6 BMI: 28.5 Code: 16194-7 Heart Rate 1: 90 bpm Height: 6' SpO2: 95% Temperature: 36.8 (C) / 98.2 (F) Weight: 210 lbs 8 oz 09/26/2018 Blood Pressure 1: 130/80 Code: 8480-6 BMI: 29.6 Code: 89626-2 Heart Rate 1: 98 bpm Height: 6' SpO2: 93% Weight: 218 lbs 08/10/2018 BMI: 29.4 Code: 33003-2 Height: 6' Weight: 217 lbs 07/26/2018 Blood Pressure 1: 116/72 Code: 8480-6 BMI: 29.4 Code: 00583-9 Heart Rate 1: 102 bpm Height: 6' SpO2: 96% Weight: 217 lbs 07/05/2018 Blood Pressure 1: 132/72 Code: 8480-6 Heart Rate 1: 60 bpm SpO2: 95% 06/12/2018 Blood Pressure 1: 120/78 Code: 8480-6 BMI: 29.6 Code: 17637-9 Heart Rate 1: 103 bpm Height: 6' SpO2: 96% Weight: 218 lbs 05/10/2018 Blood Pressure 1: 114/68 Code: 8480-6 BMI: 29.4 Code: 01944-0 Heart Rate 1: 92 bpm Height: 6' SpO2: 97% Weight: 217 lbs 03/27/2018 Blood Pressure 1: 126/74 Code: 8480-6 BMI: 30.1 Code: 81913-8 Heart Rate 1: 103 bpm Height: 6' SpO2: 96% Weight: 222 lbs 01/25/2018 Blood Pressure 1: 122/70 Code: 8480-6 Blood Pressure 2: 126/73 Code: 8480-6 Heart Rate 1: 63 bpm SpO2: 94% 01/24/2018 Blood Pressure 1: 110/72 Code: 8480-6 BMI: 29.7 Code: 77152-0 Heart Rate 1: 88 bpm Height: 6' SpO2: 95% Weight: 219 lbs 12/08/2017 Blood Pressure 1: 120/68 Code: 8480-6 BMI: 30.0 Code: 82192-2 Heart Rate 1: 91 bpm Height: 6' SpO2: 96% Temperature: 36.7 (C) / 98.1 (F) Weight: 221 lbs 10/27/2017 Blood Pressure 1: 124/76 Code: 8480-6 BMI: 30.1 Code: 36044-3 Heart Rate 1: 69 bpm Height: 6' SpO2: 95% Weight: 222 lbs 09/29/2017 Blood Pressure 1: 118/66 Code: 8480-6 BMI: 29.9 Code: 81586-8 Heart Rate 1: 81 bpm Height: 6' SpO2: 95% Weight: 220 lbs 8 oz 09/01/2017 Blood Pressure 1: 122/82 Code: 8480-6 BMI: 29.6 Code: 83851-6 Heart Rate 1: 75 bpm Height: 6' SpO2: 97% Weight: 218 lbs 08/03/2017 Blood Pressure 1: 120/68 Code: 8480-6 Heart Rate 1: 68 bpm Height: 6' SpO2: 94% Waist Measure (cm): 97 cm 04/26/2017 Blood Pressure 1: 122/72 Code: 8480-6 BMI: 29.4 Code: 55449-4 Heart Rate 1: 85 bpm Height: 6' SpO2: 92% Weight: 217 lbs 01/25/2017 Blood Pressure 1: 118/78 Code: 8480-6 BMI: 29.4 Code: 90952-5 Heart Rate 1: 72 bpm Height: 6' SpO2: 94% Temperature: 36.9 (C) / 98.5 (F) Weight: 217 lbs 10/26/2016 Blood Pressure 1: 152/86 Code: 8480-6 BMI: 29.7 Code: 49403-6 Heart Rate 1: 58 bpm Height: 6' Weight: 219 lbs 09/27/2016 Blood Pressure 1: 138/80 Code: 8480-6 BMI: 29.4 Code: 65292-5 Heart Rate 1: 52 bpm Height: 6' SpO2: 98% Weight: 217 lbs 06/28/2016 Blood Pressure 1: 128/86 Code: 8480-6 BMI: 29.6 Code: 69201-3 Heart Rate 1: 69 bpm Height: 6' SpO2: 93% Weight: 218 lbs 04/27/2016 Blood Pressure 1: 118/82 Code: 8480-6 BMI: 29.3 Code: 44398-8 Heart Rate 1: 85 bpm Height: 6' SpO2: 98% Weight: 216 lbs 02/17/2016 Blood Pressure 1: 132/80 Code: 8480-6 BMI: 28.8 Code: 26791-7 Heart Rate 1: 94 bpm Height: 6' SpO2: 98% Weight: 212 lbs 01/20/2016 Blood Pressure 1: 120/70 Code: 8480-6 BMI: 29.7 Code: 47088-1 Heart Rate 1: 87 bpm Height: 6' SpO2: 92% Weight: 219 lbs 01/06/2016 Blood Pressure 1: 122/88 Code: 8480-6 BMI: 28.8 Code: 21796-6 Heart Rate 1: 83 bpm Height: 6' SpO2: 97% Weight: 212 lbs 12/16/2015 Blood Pressure 1: 98/62 Code: 8480-6 Heart Rate 1: 62 bpm Height: 6' SpO2: 90% Weight: 11/27/2015 Blood Pressure 1: 90/64 Code: 8480-6 Blood Pressure 1: 110/80 Code: 8480-6 Heart Rate 1: 91 bpm Height: 6' SpO2: 92% Weight: 07/30/2015 Blood Pressure 1: 112/82 Code: 8480-6 BMI: 30.5 Code: 97197-4 Heart Rate 1: 82 bpm Height: 6' SpO2: 92% Weight: 225 lbs 06/09/2015 Blood Pressure 1: 130/76 Code: 8480-6 BMI: 31.1 Code: 53914-6 Heart Rate 1: 65 bpm Height: 6' SpO2: 96% Weight: 229 lbs 04/29/2015 Blood Pressure 1: 118/78 Code: 8480-6 BMI: 30.7 Code: 10034-8 Heart Rate 1: 70 bpm Height: 6' Weight: 226 lbs 02/19/2015 Blood Pressure 1: 118/70 Code: 8480-6 BMI: 29.7 Code: 41276-8 Heart Rate 1: 68 bpm Height: 6' [...] Performer Location Codes Date EST. PATIENT, LEVEL IV Diagnosis: Paroxysmal atrial fibrillation[ICD10: I48.0] Diagnosis: Essential (primary) hypertension[ICD10: I10] Diagnosis: Frequency of micturition[ICD10: R35.0] Merline Butcher MD, [facility] CPT-4: 61317 02/12/2019 ([id number]) 19886 EST. PATIENT, LEVEL V Diagnosis: Essential (primary) hypertension[ICD10: I10] Diagnosis: Dizziness and giddiness[ICD10: R42] Diagnosis: Vertigo of central origin, right ear[ICD10: H81.41] Lesley Butcher MD, [facility] CPT-4: 59365 01/29/2019 97630 EST. PATIENT, LEVEL III Diagnosis: Pleurodynia[ICD10: R07.81] Mady Butcher MD, [facility] CPT-4: 12697 2019 ([id number]) 12154 EST. PATIENT, LEVEL III Diagnosis: Other allergic rhinitis[ICD10: J30.89] Merline Butcher MD, [facility] CPT-4: 66942 01/08/2019 70161 EST. PATIENT, LEVEL IV Diagnosis: Other fatigue[ICD10: R53.83] Diagnosis: Obstructive sleep apnea (adult) (pediatric)[ICD10: G47.33] Diagnosis: Other malaise[ICD10: R53.81] Mady Butcher MD, [facility] CPT-4: 32495 12/25/2018 ([id number]) 10086 EST. PATIENT, LEVEL IV Diagnosis: Shortness of breath[ICD10: R06.02] Diagnosis: Other fatigue[ICD10: R53.83] Diagnosis: Obstructive sleep apnea (adult) (pediatric)[ICD10: G47.33] Diagnosis: Other malaise[ICD10: R53.81] Lesley Butcher MD, [facility] CPT-4: 10135 12/13/2018 ([id number]) 97006 EST. PATIENT, LEVEL IV Diagnosis: Shortness of breath[ICD10: R06.02] Diagnosis: Dizziness and giddiness[ICD10: R42] Diagnosis: Other fatigue[ICD10: R53.83] Diagnosis: Essential (primary) hypertension[ICD10: I10] Diagnosis: Muscle weakness (generalized)[ICD10: M62.81] Merline Butcher MD, [facility] CPT-4: 53261 11/27/2018 ([id number]) 22131 EST. PATIENT, LEVEL IV Diagnosis: Essential (primary) hypertension[ICD10: I10] Diagnosis: Vertigo of central origin, right ear[ICD10: H81.41] Diagnosis: Low back pain[ICD10: M54.5] Lesley Butcher MD, [facility] CPT-4: 69959 09/26/2018 ([id number]) 67462 EST. PATIENT, LEVEL III Diagnosis: Dizziness and giddiness[ICD10: R42] Diagnosis: Vertigo of central origin, right ear[ICD10: H81.41] Diagnosis: Essential (primary) hypertension[ICD10: I10] Lesley Butcher MD, [facility] CPT-4: 53383 07/26/2018 ([id number]) 25005 EST. PATIENT, LEVEL III Diagnosis: Essential (primary) hypertension[ICD10: I10] Lesley Butcher MD, [facility] CPT-4: 27563 06/12/2018 ([id number]) 06813 EST. PATIENT, LEVEL IV Diagnosis: Other iron deficiency anemias[ICD10: D50.8] Diagnosis: Weakness[ICD10: R53.1] Diagnosis: Diverticulosis of large intestine without perforation or abscess with bleeding[ICD10: K57.31] Lesley Butcher MD, [facility] CPT-4: 19029 05/10/2018 ([id number]) 33263 EST. PATIENT, LEVEL IV Diagnosis: Essential (primary) hypertension[ICD10: I10] Diagnosis: Major depressive disorder, recurrent, mild[ICD10: F33.0] Diagnosis: Sensorineural hearing loss, bilateral[ICD10: H90.3] Lesley Butcher MD, [facility] CPT-4: 70783 03/27/2018 ([id number]) Miscellaneous no charge Diagnosis: Essential (primary) hypertension[ICD10: I10] Mady Butcher MD, [facility] CPT-4: 28335 01/25/2018 ([id number]) 49363 EST. PATIENT, LEVEL IV Diagnosis: Essential (primary) hypertension[ICD10: I10] Diagnosis: Sensorineural hearing loss, bilateral[ICD10: H90.3] Diagnosis: Mixed hyperlipidemia[ICD10: E78.2] Diagnosis: Major depressive disorder, recurrent, mild[ICD10: F33.0] Lesley Butcher MD, [facility] CPT-4: 57777 01/24/2018 41488 EST. PATIENT, LEVEL IV Diagnosis: Other malaise[ICD10: R53.81] Diagnosis: Fever, unspecified[ICD10: R50.9] Mady Butcher MD, [facility] CPT-4: 77589 12/08/2017 ([id number]) 43427 EST. PATIENT, LEVEL III Diagnosis: Essential (primary) hypertension[ICD10: I10] Lesley Butcher MD, [facility] CPT-4: 76300 10/27/2017 ([id number]) 65505 EST. PATIENT, LEVEL III Diagnosis: Benign prostatic hyperplasia with lower urinary tract symptoms[ICD10: N40.1] Diagnosis: Dysphagia, pharyngeal phase[ICD10: R13.13] Lesley Butcher MD, [facility] CPT-4: 25979 09/29/2017 ([id number]) 43935 EST. PATIENT, LEVEL IV Diagnosis: Essential (primary) hypertension[ICD10: I10] Diagnosis: Major depressive disorder, recurrent, mild[ICD10: F33.0] Diagnosis: Sensorineural hearing loss, bilateral[ICD10: H90.3] Lesley Butcher MD, [facility] CPT-4: 32145 09/01/2017 ([id number]) 32771 EST. PATIENT, LEVEL IV Diagnosis: Essential (primary) hypertension[ICD10: I10] Diagnosis: Major depressive disorder, recurrent, mild[ICD10: F33.0] Diagnosis: Mixed hyperlipidemia[ICD10: E78.2] Lesley Butcher MD [facility] CPT- 4: 59152 04/26/2017 13539 84704 EST. PATIENT, LEVEL IV Diagnosis: Essential (primary) hypertension[ICD10: I10] Diagnosis: Major depressive disorder, recurrent, mild[ICD10: F33.0] Diagnosis: Urge incontinence[ICD10: N39.41] Lesley Butcher MD, [facility] CPT-4: 06435 01/25/2017 ([id number]) 78668 EST. PATIENT, LEVEL IV Diagnosis: Essential (primary) hypertension[ICD10: I10] Diagnosis: Major depressive disorder, recurrent, mild[ICD10: F33.0] Diagnosis: Urge incontinence[ICD10: N39.41] Lesley Butcher MD [facility] CPT-4: 17909 10/26/2016 ([id number]) 11053 EST. PATIENT, LEVEL III Diagnosis: Essential (primary) hypertension[ICD10: I10] Diagnosis: Major depressive disorder, recurrent, mild[ICD10: F33.0] Diagnosis: Urge incontinence[ICD10: N39.41] Lesley Butcher MD [facility] CPT-4: 81279 09/27/2016 ([id number]) 37746 EST. PATIENT, LEVEL IV Diagnosis: Essential (primary) hypertension[ICD10: I10] Diagnosis: Encounter for immunization[ICD10: Z23] Diagnosis: Laceration without foreign body of left forearm, initial encounter[ICD10: S51.812A] Diagnosis: Laceration without foreign body of right forearm, initial encounter[ICD10: S51.811A] Diagnosis: Major depressive disorder, recurrent, mild[ICD10: F33.0] Lesley Butcher MD, [facility] CPT-4: 02583 06/28/2016 [id number]) 18395 EST. 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 PATIENT, LEVEL IV Diagnosis: Weakness[ICD10: R53.1] Diagnosis: Gout, unspecified[ICD10: M10.9] Diagnosis: Hypotension, unspecified[ICD10: I95.9] Lesley Butcher MD, [facility] CPT-4: 65566 12/16/2015 ([id number]) Patient admitted to the hospital from clinic (NO CHARGE) Diagnosis: Hypoxemia[ICD10: R09.02] Diagnosis: Weakness[ICD10: R53.1] Diagnosis: Dyspnea, unspecified[ICD10: R06.00] Mady Butcher MD, [facility] CPT- 4: 43972D 11/27/2015 ([id number]) 27304 EST. PATIENT, LEVEL III Diagnosis: Essential (primary) hypertension[ICD10: I10] Diagnosis: Gastro-esophageal reflux disease without esophagitis[ICD10: K21.9] Lesley Butcher MD, [facility] CPT-4: 75894 07/30/2015 ([id number]) 10184 EST. PATIENT, LEVEL III Diagnosis: ESSENTIAL HYPERTENSION[ICD9: 401.9] Merline Milton Butcher MD, [facility] CPT-4: 79923 06/09/2015 ([id number]) 87710 EST. PATIENT, LEVEL III Diagnosis: ESSENTIAL HYPERTENSION[ICD9: 401.9] [facility] CPT- 4: 64855 04/29/2015 ([id number]) OFFICE/OUTPATIENT VISIT NEW Diagnosis: ESSENTIAL HYPERTENSION[ICD9: 401.9] Diagnosis: DEPRESSIVE DISORDER NEC[ICD9: 311] Diagnosis: Enlarged prostate[ICD9: 600.00] Diagnosis: Nasal inflammation due to allergen[ICD9: 477.9] Lesley Butcher MD, [facility] CPT-4: 98393 02/19/2015 Plan of Care Planned Activity Notes Codes Status Date Visit Plan: Afib-new diagnosis with cardiology -Dr Deleon -now on coumadin-will return to [place] in 2 weeks to discuss watchman device SCM-hvaqbfalql-be changes Urinary frequency and urgency -check UA -patient unable to void at appt -will bring back sample 02/12/2019 Patient Education: Patient Medication Summary Completed [...] when he had previous blockages - his structures engineer in [place] does not seem to be as interested as his family would like - they are wondering about transitioning back to someone from his previous structures engineer group. They have a potential appt pending. [...] when he had previous blockages - his structures engineer in [place] does not seem to be as interested as his family would like - they are wondering about transitioning back to someone from his previous structures engineer group. They have a potential appt pending. I spent 45 minutes with the patient and his family in direct contact and discussion. 01/29/2019 Appointment: Lesley Butcher WPtel: [facility] (30 min) Complex 01/29/2019 Patient Education: Patient Medication Summary Completed 01/29/2019 Visit Plan: Left rib pain - x-ray pending - The pt is to use prn antiinflammatories to manage acute pain. The patient is to call the office if the pain is worsening or does not improve. 2019 Appointment: Mady Dunne WPtel: [facility] (30 min) Complex 2019 Patient Education: Patient [...] allergy spray. 01/08/2019 Appointment: Merline Rose WPtel: [phone] (30 min) Complex 01/08/2019 Patient Education: Patient Medication Summary Completed 01/08/2019 Visit Plan: Fatigue, shortness of breath, dizziness - pt is to continue PT, pt is to follow up with Dr. Panda and Dr. Harvey and is to notify clinic with any changes in the current treatment plan. 12/25/2018 Appointment: Mady Dunne WPtel: [phone] [facility] (15 min) Moderate 12/25/2018 Patient Education: Patient [...] at 96% 12/13/2018 Appointment: Lesley Butcher WPtel: [phone] [facility] (15 min) Moderate 12/13/2018 Patient Education: Patient Medication Summary Completed 12/13/2018 Visit Plan: IBN-zofqmxh-tfmdbhoze of breath -patient reports worsening of chronic symptoms -will check EKG and cardiac enzymes to evaluate for acute changes -recommend patient follow up with his structures engineer, Dr Sharyn vu -patient, and daughter verbalized understanding of plan. Generalized weakness-discussed PT referral after cleared by cardiology -patient's will call us when she wants to have it set up HTN-no change but monitor at home 11/27/2018 Appointment: Merline Rose WPtel: [phone] [phone] [place] (15 min) Moderate 11/27/2018 Patient Education: [...] sessions. 09/26/2018 [phone] ([facility]) Mod[facility] 09/26/2018 Patient Education: [...] surrogate. 08/10/2018 [phone] [facility] - Annual Wellness Visit 08/10/2018 Patient Education: [...] at home. 07/26/2018 Appointment: [phone] (15 min) Moderate 07/26/2018 Patient Education: [...] his dexamethasone. 06/12/2018 Appointment: [phone] (15 min) Moderate 06/12/2018 Patient Education: Patient Medication Summary Completed 06/12/2018 Visit Plan: Diverticulosis with recent GI bleeding - improved - continue with supportive care, avoid foods which cause any abdominal pain - monitor symptoms - call if any pain or bleeding recurs. Anemia - check labs today. Weakness - continue with increasing of activity. 05/10/2018 Appointment: [phone] (30 min) Complex 05/10/2018 Patient Education: [...] implant. 03/27/2018 Appointment: [phone] (15 min) Moderate 03/27/2018 Patient Education: [...] to medications. 01/24/2018 Appointment: Lesley Butcher WPtel: [facility] (15 min) Moderate 01/24/2018 Patient Education: Patient Medication Summary Completed 01/24/2018 Visit Plan: Influenza - pt started on tamiflu - pt to start on anti-inflammatories, tylenol and monitor symptoms. Pt to call if not improving. Pt to alert any close contacts as to illness. 12/08/2017 Appointment: Mady Dunne WPtel: [facility] (30 min) Complex 12/08/2017 Patient Education: Patient Medication Summary Completed 12/08/2017 Visit Plan: Hypertension - well controlled - continue with current medications, continue with no added salt diet. Pt has been encouraged to exercise daily. The pt has been advised to call the office if there are any acute concerns about change in blood pressure readings at home. 10/27/2017 Appointment: Les[facility] But[facility]Ptel[facility] (15 min) Moderate 10/27/2017 Patient Education: Patient Medication Summary Completed 10/27/2017 Referral: External, Ordering Provider Referral Initiated 10/12/2017 Visit Plan: BPH - continue with dutasteride and flomax Dysphagia - referral to Dr. Kumar for EGD - question stricture - dysphagia intermittently - hx of stricture. 09/29/2017 Appointment: [phone] (15 min) Moderate 09/29/2017 Patient Education: Patient Medication Summary Completed 09/29/2017 Care Plan: Referral Order SNOMED-CT : [id number] Pending 09/29/2017 Visit Plan: Hypertension - well [...] recommended patient to have an evaluation at [facility] to see if he has potential for cochlear implant. 09/01/2017 Appointment: Lesley Butcher WPtel: [phone] [facility] (15 min) Moderate 09/01/2017 Patient Education: Patient Medication Summary Completed 09/01/2017 Care Plan: Referral Order SNOMED-CT : [id number] Pending 09/01/2017 Visit Plan: Medicare Exam - [...] surrogate. 08/03/2017 Appointment: [facility]el[phone] [facility] - Welcome to Medicare visit 08/03/2017 Patient [...] medications. 04/26/2017 Appointment: [phone] (15 min) Moderate 04/26/2017 Patient Education: [...] 10mg daily. 01/25/2017 Appointment: [phone] (30 min) Complex 01/25/2017 Patient Education: [...] [place] 10/26/2016 Appointment: Lesley Butcher WPtel: [phone] [facility] (15 min) Moderate 10/26/2016 Patient Education: Patient [...] occur. 09/27/2016 Appointment: Lesley Butcher WPtel: [phone] [facility] (15 min) Moderate 09/27/2016 Patient Education: Patient [...] andrea 06/28/2016 Appointment: Lesley Butcher WPtel: [phone] [facility] (15 min) Moderate 06/28/2016 Patient Education: Patient [...] Ygvaleria-increase dexamethasone x 1 month 02/17/2016 Appointment: Milton Merline WPtel: [address] [place], [place] [phone] (30 min) Complex 02/17/2016 Patient Education: Patient [...] Summary Completed 12/16/2015 Appointment: Lesley Butcher WPtel: [address] [place] [address] (15 min) Moderate 12/04/2015 Appointment: [facility]el[phone] (15 min) Moderate 12/02/2015 Visit [...] home. 04/29/2015 Appointment: [facility]el[phone] (15 min) Moderate 04/29/2015 Patient [...] planned injection in back and call the superintendent police about a biopsy of the lesion on [...] -Dr Deleon -now on coumadin-will return to [place] in 2 weeks to discuss watchman device AKO-xzfmufwftj-sa changes Urinary frequency and urgency -check [facility] -[facility] . Hypertension - [...] ILLNESS. CHECK CARDIAC ENYZMES AND EKG . NQP-jxkjlri-lkjajvygi of breath -patient reports worsening of chronic symptoms -will check EKG and cardiac enzymes to evaluate for acute changes -recommend patient follow up with his structures engineer, Dr Stokes -patient, and daughter verbalized understanding [...] recommended patient to have an evaluation at [facility] to see if he has [...] when he had previous blockages - his structures engineer in [place] does not seem to be as interested as his family would like - they are wondering about transitioning back to someone from his previous structures engineer group. They have a potential appt pending. [...] when he had previous blockages - his structures engineer in [place] does not seem to be as interested as his family would like - they are wondering about transitioning back to someone from his previous structures engineer group. They have a potential appt pending. I spent 45 minutes with the patient and his family in direct contact and [email or web address]
--- OUTSIDE RECORDS SUMMARY | 2019-03-23 19:30 | XMS REPORT | CCD ---
Author Author [facility] Organization [facility] Address [address] [place] [address] Phone Care Team Providers Care Solutions Development Analyst Name Role Phone PP Unavailable CCM Unavailable Summary Purpose Interface Exchange Insurance Providers Payer name Policy type / Coverage type Covered constitution party ID Effective Begin Date Effective End Date WPS Medicare Part B Medicare Part B [id number] 2018 Unknown [facility] Medicare Part B [id number] 2018 Unknown Family history Father Diagnosis Age At Onset Hypertension Unknown Coronary Artery Disease Unknown Sister Diagnosis Age At Onset Heart disease Unknown Mother Diagnosis Age At Onset Coronary Artery Disease Unknown Hypertension Unknown Social History Social History Element Codes Description Effective Dates Marital status Unknown 02/19/2015 Number of children Unknown 2 02/19/2015 Employment Unknown Retired 02/19/[address]: 867365896 Has never smoked or chewed tobacco 02/19/2015 Alcohol history Unknown occasionally drinks alcohol 02/19/2015 Allergies, Adverse Reactions, Alerts Substance Reaction Codes Entered Date Inactivated Date Status bactrim RxNorm: 658408 12/19/2015 No Inactive Date Active ciprofloxacin RxNorm: 49434 02/18/2015 No Inactive Date Active Past Medical [...] Fill Instructions Requip 0.25 mg tablet RxNorm: 432130 1 Tablet(s) PO QHS 01/29/2019 01/23/2020 Active Flomax 0.4 mg capsule RxNorm: 083991 TAKE 1 CAPSULE BY MOUTH ONCE DAILY IN THE EVENING 01/25/2019 No Stop Date Active Requip 0.25 mg tablet RxNorm: 862968 1 Tablet(s) PO QHS 2019 01/28/2019 Inactive pantoprazole 40 mg tablet,delayed release RxNorm: 330780 TAKE ONE TABLET BY MOUTH ONCE DAILY AT BEDTIME 11/27/2018 No Stop Date Active atorvastatin 40 mg tablet RxNorm: 865700 1 Tablet(s) PO daily 09/26/2018 10/25/2018 Inactive dexamethasone 0.5 mg tablet RxNorm: 634996 TAKE 1 TABLET BY MOUTH ONCE DAILY 08/29/2018 No Stop Date Active clonazepam 1 mg tablet RxNorm: 629125 1/2 Tablet(s) PO QHS 08/24/2018 12/21/2018 Inactive allopurinol 100 mg tablet RxNorm: 922708 TAKE ONE TABLET BY MOUTH ONCE DAILY 08/03/2018 No Stop Date Active citalopram 40 mg tablet RxNorm: 579574 TAKE ONE TABLET BY MOUTH ONCE DAILY 06/13/2018 No Stop Date Active Kenalog 40 mg/mL suspension for injection RxNorm: 8981853 Milliliter(s) Inj 06/12/2018 06/12/2018 Inactive clonazepam 1 mg tablet RxNorm: 148830 1 Tablet(s) PO QHS 06/12/2018 08/23/2018 Inactive losartan 50 mg tablet RxNorm: 969643 1/2 Tablet(s) PO daily 05/24/2018 No Stop Date Active clonazepam 1 mg tablet RxNorm: 752287 1/2 Tablet(s) TAKE ONE TABLET BY MOUTH ONCE DAILY AT BEDTIME AND ONE TABLET THREE TIMES DAILY NEEDED 05/24/2018 06/11/2018 Inactive citalopram 40 mg tablet RxNorm: 770886 1/2 Tablet(s) TAKE ONE TABLET BY MOUTH ONCE DAILY 05/24/2018 09/25/2018 Inactive spironolactone 25 mg tablet RxNorm: 967035 TAKE ONE TABLET BY MOUTH ONCE DAILY 05/22/2018 No Stop Date Active dexamethasone 0.5 mg tablet RxNorm: 698777 TAKE ONE TABLET BY MOUTH ONCE DAILY 02/21/2018 08/28/2018 Inactive Flomax 0.4 mg capsule RxNorm: 315492 TAKE ONE CAPSULE BY MOUTH ONCE DAILY IN THE EVENING 12/19/2017 01/24/2019 Inactive Tamiflu 75 mg capsule RxNorm: 554835 1 Capsule(s) PO BID 12/08/2017 12/12/2017 Inactive clonazepam 1 mg tablet RxNorm: 793831 Tablet(s) TAKE ONE TABLET BY MOUTH ONCE DAILY AT BEDTIME AND ONE TABLET THREE TIMES DAILY NEEDED 11/28/2017 01/26/2018 Inactive pantoprazole 40 mg tablet,delayed release RxNorm: 055356 TAKE ONE TABLET BY MOUTH ONCE DAILY AT BEDTIME 11/07/2017 11/26/2018 Inactive allopurinol 100 mg tablet RxNorm: 497305 TAKE ONE TABLET BY MOUTH ONCE DAILY 10/03/2017 08/02/2018 Inactive pantoprazole 40 mg tablet,delayed release RxNorm: 147158 1 Tablet(s) PO BID 09/01/2017 05/28/2018 Inactive Vitamin B-6 100 mg tablet RxNorm: 173609 1 Tablet(s) PO daily 09/01/2017 06/11/2018 Inactive dutasteride 0.5 mg capsule RxNorm: 935229 1 Capsule(s) PO QPM 09/01/2017 06/11/2018 Inactive spironolactone 25 mg tablet RxNorm: 629203 TAKE ONE TABLET BY MOUTH ONCE DAILY 08/15/2017 05/21/2018 Inactive citalopram 40 mg tablet RxNorm: 570612 TAKE ONE TABLET BY MOUTH ONCE DAILY 08/08/2017 05/04/2018 Inactive dexamethasone 0.5 mg tablet RxNorm: 196057 TAKE ONE TABLET BY MOUTH ONCE DAILY 08/08/2017 11/05/2017 Inactive clonazepam 1 mg tablet RxNorm: 844584 TAKE ONE TABLET BY MOUTH ONCE DAILY AT BEDTIME AND ONE THREE TIMES DAILY NEEDED 05/12/2017 08/08/2017 Inactive clonazepam 1 mg tablet RxNorm: 175494 1 Tablet(s) PO QHS AND 1 TAB PO TID PRN 05/12/2017 05/13/2017 Inactive oxybutynin chloride ER 10 mg tablet,extended release 24 hr RxNorm: 920987 1 Tablet(s) PO daily 04/29/2017 08/02/2017 Inactive dexamethasone 0.5 mg tablet RxNorm: 809494 TAKE ONE TABLET BY MOUTH ONCE DAILY 02/14/2017 04/14/2017 Inactive Flomax 0.4 mg capsule RxNorm: 414702 TAKE ONE CAPSULE BY MOUTH ONCE DAILY IN THE EVENING 02/14/2017 11/10/2017 Inactive pantoprazole 40 mg tablet,delayed release RxNorm: 945838 TAKE ONE TABLET BY MOUTH ONCE DAILY AT BEDTIME 02/14/2017 08/31/2017 Inactive oxybutynin chloride ER 10 mg tablet,extended release 24 hr RxNorm: 248279 1 Tablet(s) PO daily 01/25/2017 04/24/2017 Inactive dexamethasone 0.5 mg tablet RxNorm: 386960 TAKE ONE TABLET BY MOUTH ONCE DAILY 11/10/2016 12/09/2016 Inactive oxybutynin chloride ER 5 mg tablet,extended release 24 hr RxNorm: 859082 1 Tablet(s) PO daily 10/28/2016 10/27/2016 Inactive oxybutynin chloride ER 5 mg tablet,extended release 24 hr RxNorm: 332663 1 Tablet(s) PO daily 10/28/2016 01/24/2017 Inactive Detrol LA 2 mg capsule,extended release RxNorm: 579445 1 Capsule(s) PO QPM 10/26/2016 10/27/2016 Inactive clonazepam 1 mg tablet RxNorm: 889007 1 Tablet(s) PO QHS AND 1 TAB PO TID PRN 10/20/2016 04/17/2017 Inactive dexamethasone 0.5 mg tablet RxNorm: 073410 TAKE ONE TABLET BY MOUTH ONCE DAILY 10/06/2016 11/04/2016 Inactive allopurinol 100 mg tablet RxNorm: 652500 1 Tablet(s) PO daily 09/30/2016 09/24/2017 Inactive Vesicare 5 mg tablet RxNorm: 125348 1 Tablet(s) PO QPM 09/27/2016 12/12/2016 Inactive spironolactone 25 mg tablet RxNorm: 958305 1 Tablet(s) PO daily 08/06/2016 07/31/2017 Inactive citalopram 40 mg tablet RxNorm: 037812 1 Tablet(s) PO daily 06/28/2016 06/22/2017 Inactive iron ER 159 mg (45 mg iron) tablet,extended release RxNorm: 951928 1 Tablet(s) PO daily 04/27/2016 08/31/2017 Inactive dexamethasone 0.5 mg tablet RxNorm: 024307 1/2 Tablet(s) PO daily 04/27/2016 02/20/2018 Inactive allopurinol 100 mg tablet RxNorm: 223688 1 Tablet(s) PO daily 04/27/2016 09/29/2016 Inactive Plavix 75 mg tablet RxNorm: 489533 1 Tablet(s) PO daily 04/27/2016 02/11/2019 Inactive clonazepam 1 mg tablet RxNorm: 705774 1 Tablet(s) PO QHS and 1 tab po TID prn 04/14/2016 10/07/2016 Inactive allopurinol 100 mg tablet RxNorm: 629187 1 Tablet(s) PO daily 02/17/2016 04/26/2016 Inactive citalopram 20 mg tablet RxNorm: 381426 1 Tablet(s) PO daily 01/20/2016 06/27/2016 Inactive Flomax 0.4 mg capsule RxNorm: 136280 1 Capsule(s) PO QPM 01/20/2016 01/13/2017 Inactive [SAVINGS FOR NON-COVERED DRUGS -- BIN:[id number], PCN: ASPROD1, Group: XXXXX, ID# XXXXXXX, Questions: . THIS IS NOT INSURANCE.] pantoprazole 40 mg tablet,delayed release RxNorm: 540211 1 Tablet(s) PO QHS 01/20/2016 01/13/2017 Inactive Colcrys 0.6 mg tablet RxNorm: 703523 1 Tablet(s) PO daily 01/06/2016 03/05/2016 Inactive take daily x 7 days then daily as needed for gout flair colchicine 0.6 mg tablet RxNorm: 077337 1 Tablet(s) PO BID 12/30/2015 01/01/2016 Inactive doxycycline hyclate 100 mg tablet RxNorm: 486910 1 Tablet(s) PO BID 12/19/2015 12/28/2015 Inactive doxycycline hyclate 100 mg tablet RxNorm: 101929 1 Tablet(s) PO BID 12/19/2015 12/18/2015 Inactive allopurinol 100 mg tablet RxNorm: 442744 1 Tablet(s) PO daily 12/16/2015 02/16/2016 Inactive colchicine 0.6 mg tablet RxNorm: 592861 Tablet(s) PO 1.2 mg PO in the morning and 0.6 mg at night for 2 days. 12/16/2015 12/29/2015 Inactive allopurinol 100 mg tablet RxNorm: 938917 1 Tablet(s) PO daily 12/16/2015 12/15/2015 Inactive Protonix 40 mg tablet,delayed release RxNorm: 039175 1 Tablet(s) PO daily 12/16/2015 01/14/2016 Inactive Bactrim DS 800 mg-160 mg tablet RxNorm: 027907 1 Tablet(s) PO BID 12/16/2015 12/18/2015 Inactive colchicine 0.6 mg tablet RxNorm: 389570 Tablet(s) PO 1.2 mg for the first dose and 0.6 mg an hour after 12/15/2015 12/15/2015 Inactive dexamethasone 0.5 mg tablet RxNorm: 927005 1 Tablet(s) PO 12/12/2015 02/09/2016 Inactive Plavix 75 mg tablet RxNorm: 200843 1 Tablet(s) PO every other day 12/12/2015 04/09/2016 Inactive nitroglycerin 0.4 mg sublingual tablet RxNorm: 141012 1 Tablet(s) SL x3 in 15 min as needed 12/12/2015 04/26/2016 Inactive clonazepam 1 mg tablet RxNorm: 976813 1 Tablet(s) PO QHS and 1 tab po TID prn 12/11/2015 12/03/2016 Inactive [place] 5 mg-325 mg tablet RxNorm: 498963 1-2 Tablet(s) PO Q6 as needed 12/11/2015 09/26/2016 Inactive clonazepam 1 mg tablet RxNorm: 780112 1 Tablet(s) PO QHS and 1 tab po TID prn 12/04/2015 12/10/2015 Inactive Flomax 0.4 mg capsule RxNorm: 030823 1 Capsule(s) PO QPM 09/22/2015 01/19/2016 Inactive [SAVINGS FOR NON-COVERED DRUGS -- BIN:[id number], PCN: ASPROD1, Group: XXXXX, ID# XXXXXXX, Questions: . THIS IS NOT INSURANCE.] Flomax 0.4 mg capsule RxNorm: 175196 1 Capsule(s) PO QPM 09/16/2015 09/21/2015 Inactive [SAVINGS FOR NON-COVERED DRUGS -- BIN:[id number], PCN: ASPROD1, Group: XXXXX, ID# XXXXXXX, Questions: . THIS IS NOT INSURANCE.] clonazepam 1 mg tablet RxNorm: 997107 1 Tablet(s) PO QHS 08/29/2015 12/03/2015 Inactive coenzyme Q10 10 mg tablet RxNorm: 659422 1 Tablet(s) PO daily 07/30/2015 01/05/2016 Inactive spironolactone 25 mg tablet RxNorm: 876638 1 Tablet(s) PO daily 07/28/2015 07/21/2016 Inactive spironolactone 25 mg tablet RxNorm: 968442 1 Tablet(s) PO daily 07/22/2015 07/27/2015 Inactive clonazepam 1 mg tablet RxNorm: 789230 1 Tablet(s) PO QHS 05/23/2015 08/28/2015 Inactive losartan 25 mg tablet RxNorm: 947767 1 Tablet(s) PO daily 02/19/2015 03/20/2015 Inactive Flonase Allergy Relief 50 mcg/actuation nasal spray,suspension RxNorm: 1 [place] NASAL BID 02/19/2015 04/26/2016 Inactive [SAVINGS FOR NON-COVERED DRUGS -- BIN:[id number], PCN: ASPROD1, Group: XXXXX, ID# XXXXXXX, Questions: . THIS IS NOT INSURANCE.] Flomax 0.4 mg capsule RxNorm: 084298 1 Capsule(s) PO QPM 02/19/2015 09/15/2015 Inactive [SAVINGS FOR NON-COVERED DRUGS -- BIN:347576, PCN: ASPROD1, Group: XXXXX, ID# XXXXXXX, Questions: . THIS IS NOT INSURANCE.] citalopram 20 mg tablet RxNorm: 958330 1 Tablet(s) PO daily 02/19/2015 03/20/2015 Inactive atenolol 25 mg tablet RxNorm: 620282 1 Tablet(s) PO daily 02/19/2015 03/20/2015 Inactive Lipitor 20 mg tablet RxNorm: 200620 1 Tablet(s) PO daily 02/19/2015 03/20/2015 Inactive vitamin B complex oral RxNorm: 16413 oral No Start Date Active Rachel oral RxNorm: 335155 oral No Start Date Active Lipitor oral RxNorm: 12742 oral No Start Date Active warfarin 3 mg tablet RxNorm: 254743 1 Tablet(s) PO daily No Start Date Active managed by brush stainer Dr Deleon aspirin 81 mg capsule,delayed release RxNorm: 804398 1 Capsule(s) PO daily No Start Date Active Aleve 220 mg tablet RxNorm: 190639 Tablet(s) PO as needed No Start Date Active Vitamin D3 1,000 unit capsule RxNorm: 470028 2 Capsule(s) PO daily No Start Date Active Centrum Complete oral RxNorm: 43171 oral No Start Date Active Carafate 1 gram tablet RxNorm: 483794 1 Tablet(s) PO every other day No Start Date Active glucosamine HCl 1,500 mg tablet RxNorm: 851356 1 Tablet(s) with 1200 mg chrondroitin PO daily No Start Date 08/01/2018 Inactive Claritin-D 24 Hour oral RxNorm: 342755 oral No Start Date 01/07/2019 Inactive ranitidine 150 mg tablet RxNorm: 205934 1 Tablet(s) PO TID No Start Date 12/11/2015 Inactive [place] 5 mg-325 mg tablet RxNorm: 768810 1-2 Tablet(s) PO Q6 as needed No Start Date 12/10/2015 Inactive krill oil oral RxNorm: 06638 oral No Start Date 08/07/2018 Inactive Vitamin B-6 100 mg tablet RxNorm: 121704 1 Tablet(s) PO TID No Start Date 08/31/2017 Inactive spironolactone 25 mg tablet RxNorm: 593292 1 Tablet(s) PO daily No Start Date 07/21/2015 Inactive Vitamin D3 oral RxNorm: 2418 oral No Start Date 02/17/2016 Inactive clonazepam 1 mg tablet RxNorm: 951389 1 Tablet(s) PO daily No Start Date 05/22/2015 Inactive Glucosamine oral RxNorm: 4845 oral No Start Date 04/26/2016 Inactive cetirizine 10 mg tablet RxNorm: 8045467 1 Tablet(s) PO daily No Start Date 01/07/2019 Inactive losartan 50 mg tablet RxNorm: 202014 1 Tablet(s) PO daily No Start Date 05/23/2018 Inactive Plavix 75 mg tablet RxNorm: 791019 1 Tablet(s) PO every other day No Start Date 12/11/2015 Inactive Osteo Bi-Flex oral RxNorm: 4950954 oral No Start Date 09/01/2017 Inactive iron ER 159 mg (45 mg iron) tablet,extended release RxNorm: 846729 1 Tablet(s) PO BID No Start Date 04/26/2016 Inactive amlodipine 5 mg tablet RxNorm: 505422 1 Tablet(s) PO daily No Start Date 01/05/2016 Inactive aspirin 81 mg tablet,delayed release RxNorm: 497859 1 Tablet(s) PO daily No Start Date 05/09/2018 Inactive dexamethasone 0.5 mg tablet RxNorm: 091501 1 Tablet(s) PO No Start Date 12/11/2015 Inactive Vitamin B-12 1,000 mcg tablet RxNorm: 877855 6 Tablet(s) PO every other day No Start Date 06/11/2018 Inactive colchicine 0.6 mg tablet RxNorm: 859413 Tablet(s) PO 1.2 mg for the first dose and 0.6 mg an hour after No Start Date 12/14/2015 Inactive nitroglycerin 0.4 mg sublingual tablet RxNorm: 839526 1 Tablet(s) SL x3 in 15 min as needed No Start Date 12/11/2015 Inactive Fish Oil 1,000 mg capsule RxNorm: 1 Capsule(s) PO daily No Start Date 04/26/2016 Inactive Ecotrin Low Strength 81 mg tablet,enteric coated RxNorm: 9937838 1 Tablet(s) PO daily No Start Date 09/27/2016 Inactive Medication Administered Medication Codes Instructions Start Date Status Kenalog 40 mg/mL suspension for injection RxNorm: 4283389 Milliliter 06/12/2018 No longer Active Immunizations Vaccine [...] 30.4 pg 10/20/2018 Cbc With Differential Ord2 Cobb% 5.7 % 10/20/2018 Cbc With Differential Ord2 [...] 1.69 K/ul 10/20/2018 Cbc With Differential Ord2 Cobb ABS# 0.6 K/ul 10/20/2018 Cbc With Differential Ord2 Eos ABS# 0.0 K/ul 10/20/2018 Cbc With Differential Ord2 Baso ABS# 0.0 K/ul 10/20/2018 Comp Metabolic Pyb081 NA 140 mEq/L 10/20/2018 Comp Metabolic Ghl851 K 4.0 mEq/L 10/20/2018 Comp Metabolic Akc407 CL 104 mEq/L 10/20/2018 Comp Metabolic Ykx887 CO2 28.0 mEq/L 10/20/2018 Comp Metabolic Inh573 ANION GAP 12 10/20/2018 Comp Metabolic Irp170 GLUCOSE 113 mg/dL 10/20/2018 Comp Metabolic Wqn283 Creat 1.0 mg/dL 10/20/2018 Comp Metabolic Hjh987 eGFR 75 ml/min/1.73m2 10/20/2018 Comp Metabolic Eik738 BUN 18 mg/dL 10/20/2018 Comp Metabolic Est850 B/C Ratio 17.8 Ratio 10/20/2018 Comp Metabolic Jvg975 CALCIUM 9.8 mg/dL 10/20/2018 Comp Metabolic Ruv732 ALK PHOS 70 U/L 10/20/2018 Comp Metabolic Txe797 AST(SGOT) 15 U/L 10/20/2018 Comp Metabolic Shv403 ALT(SGPT) 18 U/L 10/20/2018 Comp Metabolic Xdn368 BILI T 1.1 mg/dL 10/20/2018 Comp Metabolic Idu245 ALBUMIN 4.4 g/dL 10/20/2018 Comp Metabolic Xqu139 TPRO 6.9 g/dL 10/20/2018 Comp Metabolic Hyi613 GLOB 2.5 g/dL 10/20/2018 Comp Metabolic Fuz329 A/G Ratio 1.7 Ratio 10/20/2018 Comp Metabolic Rsy652 Osmo 282 mOsmo 10/20/2018 Urinalysis Ord28 U-Color [...] 29.0 pg 07/14/2018 Cbc With Differential Ord2 Cobb% 7.5 % 07/14/2018 Cbc With Differential Ord2 [...] 1.92 K/ul 07/14/2018 Cbc With Differential Ord2 Cobb ABS# 0.4 K/ul 07/14/2018 Cbc With Differential Ord2 Eos ABS# 0.2 K/ul 07/14/2018 Cbc With Differential Ord2 Baso ABS# 0.0 K/ul 07/14/2018 Renal Jvm840 NA 140 mEq/L 07/14/2018 Renal Bkb936 K 4.2 mEq/L 07/14/2018 Renal Lsb955 CL 103 mEq/L 07/14/2018 Renal Pxx002 CO2 29.0 mEq/L 07/14/2018 Renal Yfa340 ANION GAP 12 07/14/2018 Renal Uev707 Osmo 280 mOsmo 07/14/2018 Renal Uwh477 GLUCOSE 95 mg/dL 07/14/2018 Renal Znw664 BUN 15 mg/dL 07/14/2018 Renal Lvo576 Creat 1.2 mg/dL 07/14/2018 Renal Lmm002 eGFR 64 ml/min/1.73m2 07/14/2018 Renal Asd339 B/C Ratio 12.8 Ratio 07/14/2018 Renal Wiz743 CALCIUM 9.6 mg/dL 07/14/2018 Renal Yzo250 PHOS 3.2 mg/dL 07/14/2018 Renal Aby599 ALBUMIN 4.4 g/dL 07/14/2018 Magnesium Ord90 Mag [...] 29.7 pg 06/08/2018 Cbc With Differential Ord2 Cobb% 8.7 % 06/08/2018 Cbc With Differential Ord2 [...] 2.14 K/ul 06/08/2018 Cbc With Differential Ord2 Cobb ABS# 0.5 K/ul 06/08/2018 Cbc With Differential Ord2 Eos ABS# 0.2 K/ul 06/08/2018 Cbc With Differential Ord2 Baso ABS# 0.0 K/ul 06/08/2018 Comp Metabolic Wjf220 NA 139 mEq/L 06/08/2018 Comp Metabolic Wce389 K 4.6 mEq/L 06/08/2018 Comp Metabolic Aia698 CL 105 mEq/L 06/08/2018 Comp Metabolic Jkw435 CO2 26.0 mEq/L 06/08/2018 Comp Metabolic Hum196 ANION GAP 13 06/08/2018 Comp Metabolic Pox758 GLUCOSE 95 mg/dL 06/08/2018 Comp Metabolic Nxn253 Creat 1.2 mg/dL 06/08/2018 Comp Metabolic Izx578 eGFR 59 ml/min/1.73m2 06/08/2018 Comp Metabolic Qtr784 BUN 12 mg/dL 06/08/2018 Comp Metabolic Isw450 B/C Ratio 9.7 Ratio 06/08/2018 Comp Metabolic Puj143 CALCIUM 9.9 mg/dL 06/08/2018 Comp Metabolic Nnw617 ALK PHOS 70 U/L 06/08/2018 Comp Metabolic Clv473 AST(SGOT) 21 U/L 06/08/2018 Comp Metabolic Elu835 ALT(SGPT) 20 U/L 06/08/2018 Comp Metabolic Usf269 BILI T 1.0 mg/dL 06/08/2018 Comp Metabolic Ata492 ALBUMIN 4.5 g/dL 06/08/2018 Comp Metabolic Omb047 TPRO 7.2 g/dL 06/08/2018 Comp Metabolic Ibl980 GLOB 2.8 g/dL 06/08/2018 Comp Metabolic Pfr077 A/G Ratio 1.6 Ratio 06/08/2018 Comp Metabolic Isa738 Osmo 277 mOsmo 06/08/2018 Cbc With Differential [...] 30.6 pg 05/10/2018 Cbc With Differential Ord2 Cobb% 6.5 % 05/10/2018 Cbc With Differential Ord2 [...] 1.94 K/ul 05/10/2018 Cbc With Differential Ord2 Cobb ABS# 0.4 K/ul 05/10/2018 Cbc With Differential [...] Ord30 C/HDL 4.2 Ratio 01/26/2018 Comp Metabolic Zvn318 NA 138 mEq/L 01/26/2018 Comp Metabolic Bod279 K 4.2 mEq/L 01/26/2018 Comp Metabolic Gua519 CL 105 mEq/L 01/26/2018 Comp Metabolic Deo924 CO2 23.0 mEq/L 01/26/2018 Comp Metabolic Boo450 ANION GAP 14 01/26/2018 Comp Metabolic Yzd897 GLUCOSE 89 mg/dL 01/26/2018 Comp Metabolic Ugh408 Creat 1.1 mg/dL 01/26/2018 Comp Metabolic Luq184 eGFR 70 ml/min/1.73m2 01/26/2018 Comp Metabolic Mtl318 BUN 18 mg/dL 01/26/2018 Comp Metabolic Sbf982 B/C Ratio 16.8 Ratio 01/26/2018 Comp Metabolic Hvq192 CALCIUM 9.2 mg/dL 01/26/2018 Comp Metabolic Per952 ALK PHOS 67 U/L 01/26/2018 Comp Metabolic Eow407 AST(SGOT) 31 U/L 01/26/2018 Comp Metabolic Rgv572 ALT(SGPT) 23 U/L 01/26/2018 Comp Metabolic Haq924 BILI T 1.7 mg/dL 01/26/2018 Comp Metabolic Xst167 ALBUMIN 3.9 g/dL 01/26/2018 Comp Metabolic Qkx958 TPRO 6.7 g/dL 01/26/2018 Comp Metabolic Bbw382 GLOB 2.8 g/dL 01/26/2018 Comp Metabolic Wgm332 A/G Ratio 1.4 Ratio 01/26/2018 Comp Metabolic Jgw865 Osmo 277 mOsmo 01/26/2018 Cbc With Differential [...] 30.7 pg 01/26/2018 Cbc With Differential Ord2 Cobb% 7.1 % 01/26/2018 Cbc With Differential Ord2 [...] 2.40 K/ul 01/26/2018 Cbc With Differential Ord2 Cobb ABS# 0.5 K/ul 01/26/2018 Cbc With Differential Ord2 Eos ABS# 0.2 K/ul 01/26/2018 Cbc With Differential Ord2 Baso ABS# 0.0 K/ul 01/26/2018 Tsh Ord6 TSH (3rd IS) 1.81 uIU/mL 01/26/2018 Testosterone Ybi596 Testo 370.3 ng/dL 01/26/2018 C A/B FLU [id number] Influenza A Scr Negative 12/08/2017 C A/B FLU [id number] Influenza B Scr Negative 12/08/2017 C A/B FLU [id number] Influenza Intrp B AG:PRID:PT:NOSE:NOM:IF See Footnote 12/08/2017 [...] 30.8 pg 04/11/2017 Cbc With Differential Ord2 Cobb% 8.1 % 04/11/2017 Cbc With Differential Ord2 [...] 1.91 K/ul 04/11/2017 Cbc With Differential Ord2 Cobb ABS# 0.5 K/ul 04/11/2017 Cbc With Differential Ord2 Eos ABS# 0.2 K/ul 04/11/2017 Cbc With Differential Ord2 Baso ABS# 0.0 K/ul 04/11/2017 Comp Metabolic Idv790 NA 140 mEq/L 04/11/2017 Comp Metabolic Urw356 K 4.1 mEq/L 04/11/2017 Comp Metabolic Pcg456 CL 105 mEq/L 04/11/2017 Comp Metabolic Bap851 CO2 26.0 mEq/L 04/11/2017 Comp Metabolic Jwb910 ANION GAP 13 04/11/2017 Comp Metabolic Quo560 GLUCOSE 88 mg/dL 04/11/2017 Comp Metabolic Zmr305 Creat 1.1 mg/dL 04/11/2017 Comp Metabolic Twn208 eGFR 66 ml/min/1.73m2 04/11/2017 Comp Metabolic Ctw989 BUN 18 mg/dL 04/11/2017 Comp Metabolic Vid652 B/C Ratio 15.9 Ratio 04/11/2017 Comp Metabolic Uky777 CALCIUM 9.0 mg/dL 04/11/2017 Comp Metabolic Gmm842 ALK PHOS 72 U/L 04/11/2017 Comp Metabolic Ylq468 AST(SGOT) 22 U/L 04/11/2017 Comp Metabolic Oxz180 ALT(SGPT) 26 U/L 04/11/2017 Comp Metabolic Vlt048 BILI T 1.0 mg/dL 04/11/2017 Comp Metabolic Kns774 ALBUMIN 4.0 g/dL 04/11/2017 Comp Metabolic Pgd712 TPRO 6.4 g/dL 04/11/2017 Comp Metabolic Ekw645 GLOB 2.4 g/dL 04/11/2017 Comp Metabolic Vma666 A/G Ratio 1.6 Ratio 04/11/2017 Comp Metabolic Hkv585 Osmo 281 mOsmo 04/11/2017 Vitamin D 25 Oh Cvl1943 VITAMIN D, 25 HYDROXY 65.52 ng/mL 05/19/2016 [...] 28.5 pg 05/18/2016 Cbc With Differential Ord2 Cobb% 7.2 % 05/18/2016 Cbc With Differential Ord2 [...] 1.80 K/ul 05/18/2016 Cbc With Differential Ord2 Cobb ABS# 0.4 K/ul 05/18/2016 Cbc With Differential Ord2 Eos ABS# 0.2 K/ul 05/18/2016 Cbc With Differential Ord2 Baso ABS# 0.0 K/ul 05/18/2016 Magnesium Ord90 Mag 2.0 mg/dL 05/18/2016 Renal Fwd784 NA 139 mEq/L 05/18/2016 Renal Ukj581 K 4.0 mEq/L 05/18/2016 Renal Xhq375 CL 104 mEq/L 05/18/2016 Renal Wml315 CO2 27.0 mEq/L 05/18/2016 Renal Vkh166 ANION GAP 12 05/18/2016 Renal Koi534 Osmo 279 mOsmo 05/18/2016 Renal Uyv894 GLUCOSE 91 mg/dL 05/18/2016 Renal Gso015 BUN 18 mg/dL 05/18/2016 Renal Htw132 Creat 1.3 mg/dL 05/18/2016 Renal Dzg491 eGFR 59 ml/min/1.73m2 05/18/2016 Renal Mqm620 B/C Ratio 14.3 Ratio 05/18/2016 Renal Pfi002 CALCIUM 9.3 mg/dL 05/18/2016 Renal Gnw187 PHOS 3.2 mg/dL 05/18/2016 Renal Emi090 ALBUMIN 4.2 g/dL 05/18/2016 Random Urine Protein/Creatinine Ratio Ffq6660 U Prot 15.0 mg/dl 05/18/2016 Random Urine Protein/Creatinine Ratio Gju3136 U CREAT 141.0 mg/dL 05/18/2016 Random Urine Protein/Creatinine Ratio Ves2735 R MTP/Creat Ratio 0.11 05/18/2016 Urinalysis Ord28 [...] 28.5 pg 02/19/2016 Cbc With Differential Ord2 Cobb% 9.5 % 02/19/2016 Cbc With Differential Ord2 [...] 1.91 K/ul 02/19/2016 Cbc With Differential Ord2 Cobb ABS# 0.5 K/ul 02/19/2016 Cbc With Differential Ord2 Eos ABS# 0.2 K/ul 02/19/2016 Cbc With Differential Ord2 Baso ABS# 0.0 K/ul 02/19/2016 Cbc With Differential Ord2 New Analyzer Notice Please note new ref ranges starting 10-29-2015 due to implemntation of new five part differential hematolgy analyzer. 02/19/2016 Tsh Ord6 hTSH II 2.10 uIU/mL 02/19/2016 Comp Metabolic Tjy320 NA 138 mEq/L 02/19/2016 Comp Metabolic Isv460 K 3.8 mEq/L 02/19/2016 Comp Metabolic Sst326 CL 103 mEq/L 02/19/2016 Comp Metabolic Yia091 CO2 28.0 mEq/L 02/19/2016 Comp Metabolic Ujo182 ANION GAP 11 02/19/2016 Comp Metabolic Nzb228 GLUCOSE 94 mg/dL 02/19/2016 Comp Metabolic Vib672 Creat 1.0 mg/dL 02/19/2016 Comp Metabolic Stl944 eGFR 75 ml/min/1.73m2 02/19/2016 Comp Metabolic Emg011 BUN 18 mg/dL 02/19/2016 Comp Metabolic Tkr177 B/C Ratio 17.6 Ratio 02/19/2016 Comp Metabolic Ypl352 CALCIUM 9.6 mg/dL 02/19/2016 Comp Metabolic Aec919 ALK PHOS 93 U/L 02/19/2016 Comp Metabolic Bti407 AST(SGOT) 23 U/L 02/19/2016 Comp Metabolic Nnr489 ALT(SGPT) 19 U/L 02/19/2016 Comp Metabolic Osl498 BILI T 0.8 mg/dL 02/19/2016 Comp Metabolic Wwy776 ALBUMIN 4.1 g/dL 02/19/2016 Comp Metabolic Fzh026 TPRO 6.8 g/dL 02/19/2016 Comp Metabolic Vfb100 GLOB 2.7 g/dL 02/19/2016 Comp Metabolic Rxl387 A/G Ratio 1.5 Ratio 02/19/2016 Comp Metabolic Klr448 Osmo 277 mOsmo 02/19/2016 Uric Acid Ord77 Uric A 6.0 mg/dL 02/19/2016 Total Psa Ord10 PSA 0.82 ng/mL 02/19/2016 Comp Metabolic Rod897 NA 140 mEq/L 12/16/2015 Comp Metabolic Pmk771 K 4.0 mEq/L 12/16/2015 Comp Metabolic Gra753 CL 105 mEq/L 12/16/2015 Comp Metabolic Paj650 CO2 24.0 mEq/L 12/16/2015 Comp Metabolic Wmw769 ANION GAP 15 12/16/2015 Comp Metabolic Qmb962 GLUCOSE 85 mg/dL 12/16/2015 Comp Metabolic Jvw921 Creat 1.2 mg/dL 12/16/2015 Comp Metabolic Fvo896 eGFR 65 ml/min/1.73m2 12/16/2015 Comp Metabolic Ove046 BUN 14 mg/dL 12/16/2015 Comp Metabolic Xfy863 B/C Ratio 12.1 Ratio 12/16/2015 Comp Metabolic Paa344 CALCIUM 9.1 mg/dL 12/16/2015 Comp Metabolic Xvm495 ALK PHOS 162 U/L 12/16/2015 Comp Metabolic Lou948 AST(SGOT) 14 U/L 12/16/2015 Comp Metabolic Rgv007 ALT(SGPT) 17 U/L 12/16/2015 Comp Metabolic Lrr177 BILI T 1.0 mg/dL 12/16/2015 Comp Metabolic Xbs803 ALBUMIN 3.4 g/dL 12/16/2015 Comp Metabolic Byy429 TPRO 6.2 g/dL 12/16/2015 Comp Metabolic Rho130 GLOB 2.9 g/dL 12/16/2015 Comp Metabolic Wbh678 A/G Ratio 1.2 Ratio 12/16/2015 Comp Metabolic Lgv604 Osmo 279 mOsmo 12/16/2015 Uric Acid Ord77 [...] 29.9 % 12/16/2015 Cbc With Differential Ord2 Cobb% 7.5 % 12/16/2015 Cbc With Differential Ord2 [...] 1.52 K/ul 12/16/2015 Cbc With Differential Ord2 Cobb ABS# 0.4 K/ul 12/16/2015 Cbc With Differential [...] C/HDL 4.0 Ratio 07/21/2015 Urine Protein 24Hr Ixk747 U Prot 5.1 mg/dl 05/16/2015 Urine Protein 24Hr Hzr981 U Prot24 71.5 mg/24hr 05/16/2015 Total Volume Urine Avy520 TV/24hr 1400 ml 05/16/2015 Total Psa Ord10 PSA 0.70 ng/mL 05/15/2015 Renal Thx479 NA 135 mEq/L 05/15/2015 Renal Qkm949 K 3.9 mEq/L 05/15/2015 Renal Qlg187 CL 101 mEq/L 05/15/2015 Renal Mje555 CO2 27.0 mEq/L 05/15/2015 Renal Lab008 ANION GAP 11 05/15/2015 Renal Ryk256 Osmo 274 mOsmo 05/15/2015 Renal Rfa578 GLUCOSE 132 mg/dL 05/15/2015 Renal Umj709 BUN 19 mg/dL 05/15/2015 Renal Vji990 Creat 1.1 mg/dL 05/15/2015 Renal Vco794 eGFR 67 ml/min/1.73m2 05/15/2015 Renal Alh972 B/C Ratio 17.0 Ratio 05/15/2015 Renal Llj321 CALCIUM 9.6 mg/dL 05/15/2015 Renal Ucj125 PHOS 3.0 mg/dL 05/15/2015 Renal Bgv529 ALBUMIN 4.3 g/dL 05/15/2015 Cbc With Differential [...] Formatting Model/CDA Sections, Assigned to/Sharee Ramirez CPT-4: 67123Skvkrtp 07/05/2018 THER/PROPH/DIAG INJ SC/IM CPT-4: 64086 06/12/2018 TRIAMCINOLONE ACET INJ NOS CPT-4: J3301 06/12/2018 PPPS, SUBSEQ VISIT CPT- 4: G0439 08/03/2017 ADMIN INFLUENZA VIRUS VAC CPT-4: G0008 06/28/2016 FLU VACC PRSV FREE INC ANTIG CPT-4: 89964 06/28/2016 TENIVAC TD VACCINE NO PRSRV 7/> IM CPT-4: 85939 06/28/2016 OCCULT BLOOD FECES CPT- 4: 22003 02/19/2015 Vital Signs Date Vital 02/12/2019 Blood Pressure 1: 110/70 Code: 8480-6 BMI: 28.5 Code: 70052-8 Heart Rate 1: 70 bpm Height: 6' SpO2: 93% Weight: 210 lbs 01/29/2019 Blood Pressure 1: 110/78 Code: 8480-6 BMI: 28.5 Code: 46267-2 Heart Rate 1: 98 bpm Height: 6' SpO2: 90% Weight: 210 lbs 2019 Blood Pressure 1: 136/74 Code: 8480-6 BMI: 28.6 Code: 54094-5 Heart Rate 1: 97 bpm Height: 6' SpO2: 94% Weight: 211 lbs 01/08/2019 Blood Pressure 1: 128/86 Code: 8480-6 BMI: 28.6 Code: 55540-1 Heart Rate 1: 96 bpm Height: 6' SpO2: 97% Weight: 211 lbs 12/25/2018 Blood Pressure 1: 112/62 Code: 8480-6 BMI: 28.6 Code: 63152-7 Heart Rate 1: 76 bpm Height: 6' SpO2: 96% Weight: 211 lbs 12/13/2018 Blood Pressure 1: 114/78 Code: 8480-6 BMI: 29.4 Code: 66289-4 Heart Rate 1: 73 bpm Height: 6' SpO2: 93% Weight: 217 lbs 11/27/2018 Blood Pressure 1: 110/70 Code: 8480-6 BMI: 28.5 Code: 03137-5 Heart Rate 1: 90 bpm Height: 6' SpO2: 95% Temperature: 36.8 (C) / 98.2 (F) Weight: 210 lbs 8 oz 09/26/2018 Blood Pressure 1: 130/80 Code: 8480-6 BMI: 29.6 Code: 45656-0 Heart Rate 1: 98 bpm Height: 6' SpO2: 93% Weight: 218 lbs 08/10/2018 BMI: 29.4 Code: 50689-0 Height: 6' Weight: 217 lbs 07/26/2018 Blood Pressure 1: 116/72 Code: 8480-6 BMI: 29.4 Code: 05094-8 Heart Rate 1: 102 bpm Height: 6' SpO2: 96% Weight: 217 lbs 07/05/2018 Blood Pressure 1: 132/72 Code: 8480-6 Heart Rate 1: 60 bpm SpO2: 95% 06/12/2018 Blood Pressure 1: 120/78 Code: 8480-6 BMI: 29.6 Code: 86239-7 Heart Rate 1: 103 bpm Height: 6' SpO2: 96% Weight: 218 lbs 05/10/2018 Blood Pressure 1: 114/68 Code: 8480-6 BMI: 29.4 Code: 88532-7 Heart Rate 1: 92 bpm Height: 6' SpO2: 97% Weight: 217 lbs 03/27/2018 Blood Pressure 1: 126/74 Code: 8480-6 BMI: 30.1 Code: 04889-8 Heart Rate 1: 103 bpm Height: 6' SpO2: 96% Weight: 222 lbs 01/25/2018 Blood Pressure 1: 122/70 Code: 8480-6 Blood Pressure 2: 126/73 Code: 8480-6 Heart Rate 1: 63 bpm SpO2: 94% 01/24/2018 Blood Pressure 1: 110/72 Code: 8480-6 BMI: 29.7 Code: 89251-5 Heart Rate 1: 88 bpm Height: 6' SpO2: 95% Weight: 219 lbs 12/08/2017 Blood Pressure 1: 120/68 Code: 8480-6 BMI: 30.0 Code: 94020-4 Heart Rate 1: 91 bpm Height: 6' SpO2: 96% Temperature: 36.7 (C) / 98.1 (F) Weight: 221 lbs 10/27/2017 Blood Pressure 1: 124/76 Code: 8480-6 BMI: 30.1 Code: 26776-5 Heart Rate 1: 69 bpm Height: 6' SpO2: 95% Weight: 222 lbs 09/29/2017 Blood Pressure 1: 118/66 Code: 8480-6 BMI: 29.9 Code: 30367-8 Heart Rate 1: 81 bpm Height: 6' SpO2: 95% Weight: 220 lbs 8 oz 09/01/2017 Blood Pressure 1: 122/82 Code: 8480-6 BMI: 29.6 Code: 77098-5 Heart Rate 1: 75 bpm Height: 6' SpO2: 97% Weight: 218 lbs 08/03/2017 Blood Pressure 1: 120/68 Code: 8480-6 Heart Rate 1: 68 bpm Height: 6' SpO2: 94% Waist Measure (cm): 97 cm 04/26/2017 Blood Pressure 1: 122/72 Code: 8480-6 BMI: 29.4 Code: 58273-2 Heart Rate 1: 85 bpm Height: 6' SpO2: 92% Weight: 217 lbs 01/25/2017 Blood Pressure 1: 118/78 Code: 8480-6 BMI: 29.4 Code: 62383-5 Heart Rate 1: 72 bpm Height: 6' SpO2: 94% Temperature: 36.9 (C) / 98.5 (F) Weight: 217 lbs 10/26/2016 Blood Pressure 1: 152/86 Code: 8480-6 BMI: 29.7 Code: 94192-1 Heart Rate 1: 58 bpm Height: 6' Weight: 219 lbs 09/27/2016 Blood Pressure 1: 138/80 Code: 8480-6 BMI: 29.4 Code: 69125-7 Heart Rate 1: 52 bpm Height: 6' SpO2: 98% Weight: 217 lbs 06/28/2016 Blood Pressure 1: 128/86 Code: 8480-6 BMI: 29.6 Code: 64483-4 Heart Rate 1: 69 bpm Height: 6' SpO2: 93% Weight: 218 lbs 04/27/2016 Blood Pressure 1: 118/82 Code: 8480-6 BMI: 29.3 Code: 87957-7 Heart Rate 1: 85 bpm Height: 6' SpO2: 98% Weight: 216 lbs 02/17/2016 Blood Pressure 1: 132/80 Code: 8480-6 BMI: 28.8 Code: 20600-0 Heart Rate 1: 94 bpm Height: 6' SpO2: 98% Weight: 212 lbs 01/20/2016 Blood Pressure 1: 120/70 Code: 8480-6 BMI: 29.7 Code: 92654-2 Heart Rate 1: 87 bpm Height: 6' SpO2: 92% Weight: 219 lbs 01/06/2016 Blood Pressure 1: 122/88 Code: 8480-6 BMI: 28.8 Code: 30778-3 Heart Rate 1: 83 bpm Height: 6' SpO2: 97% Weight: 212 lbs 12/16/2015 Blood Pressure 1: 98/62 Code: 8480-6 Heart Rate 1: 62 bpm Height: 6' SpO2: 90% Weight: 11/27/2015 Blood Pressure 1: 90/64 Code: 8480-6 Blood Pressure 1: 110/80 Code: 8480-6 Heart Rate 1: 91 bpm Height: 6' SpO2: 92% Weight: 07/30/2015 Blood Pressure 1: 112/82 Code: 8480-6 BMI: 30.5 Code: 32609-5 Heart Rate 1: 82 bpm Height: 6' SpO2: 92% Weight: 225 lbs 06/09/2015 Blood Pressure 1: 130/76 Code: 8480-6 BMI: 31.1 Code: 90786-5 Heart Rate 1: 65 bpm Height: 6' SpO2: 96% Weight: 229 lbs 04/29/2015 Blood Pressure 1: 118/78 Code: 8480-6 BMI: 30.7 Code: 74645-3 Heart Rate 1: 70 bpm Height: 6' Weight: 226 lbs 02/19/2015 Blood Pressure 1: 118/70 Code: 8480-6 BMI: 29.7 Code: 75110-2 Heart Rate 1: 68 bpm Height: 6' [...] Frequency of micturition[ICD10: R35.0] Merline Butcher MD, [facility] CPT-4: 23210 02/12/2019 ([id number]) 94838 EST. PATIENT, LEVEL V Diagnosis: Essential (primary) hypertension[ICD10: I10] Diagnosis: Dizziness and giddiness[ICD10: R42] Diagnosis: Vertigo of central origin, right ear[ICD10: H81.41] Lesley Butcher MD, [facility] CPT-4: 99086 01/29/2019 90561 EST. PATIENT, LEVEL III Diagnosis: Pleurodynia[ICD10: R07.81] Mady Butcher MD, [facility] CPT-4: 78673 2019 ([id number]) 98943 EST. PATIENT, LEVEL III Diagnosis: Other allergic rhinitis[ICD10: J30.89] Merline Butcher MD, [facility] CPT-4: 60759 01/08/2019 21184 EST. PATIENT, LEVEL IV Diagnosis: Other fatigue[ICD10: R53.83] Diagnosis: Obstructive sleep apnea (adult) (pediatric)[ICD10: G47.33] Diagnosis: Other malaise[ICD10: R53.81] Mady Butcher MD, [facility] CPT-4: 91090 12/25/2018 ([id number]) 65590 EST. PATIENT, LEVEL IV Diagnosis: Shortness of breath[ICD10: R06.02] Diagnosis: Other fatigue[ICD10: R53.83] Diagnosis: Obstructive sleep apnea (adult) (pediatric)[ICD10: G47.33] Diagnosis: Other malaise[ICD10: R53.81] Lesley Butcher MD, [facility] CPT-4: 15626 12/13/2018 ([id number]) 65689 EST. PATIENT, LEVEL IV Diagnosis: Shortness of breath[ICD10: R06.02] Diagnosis: Dizziness and giddiness[ICD10: R42] Diagnosis: Other fatigue[ICD10: R53.83] Diagnosis: Essential (primary) hypertension[ICD10: I10] Diagnosis: Muscle weakness (generalized)[ICD10: M62.81] Merline Butcher MD, [facility] CPT-4: 99420 11/27/2018 ([id number]) 91281 EST. PATIENT, LEVEL IV Diagnosis: Essential (primary) hypertension[ICD10: I10] Diagnosis: Vertigo of central origin, right ear[ICD10: H81.41] Diagnosis: Low back pain[ICD10: M54.5] Lesley Butcher MD, [facility] CPT-4: 52811 09/26/2018 ([id number]) 44376 EST. PATIENT, LEVEL III Diagnosis: Dizziness and giddiness[ICD10: R42] Diagnosis: Vertigo of central origin, right ear[ICD10: H81.41] Diagnosis: Essential (primary) hypertension[ICD10: I10] Lesley Butcher MD, [facility] CPT-4: 12402 07/26/2018 ([id number]) 86960 EST. PATIENT, LEVEL III Diagnosis: Essential (primary) hypertension[ICD10: I10] Lesley Butcher MD, [facility] CPT-4: 90973 06/12/2018 ([id number]) 71175 EST. PATIENT, LEVEL IV Diagnosis: Other iron deficiency anemias[ICD10: D50.8] Diagnosis: Weakness[ICD10: R53.1] Diagnosis: Diverticulosis of large intestine without perforation or abscess with bleeding[ICD10: K57.31] Lesley Butcher MD, [facility] CPT-4: 95214 05/10/2018 ([id number]) 95310 EST. PATIENT, LEVEL IV Diagnosis: Essential (primary) hypertension[ICD10: I10] Diagnosis: Major depressive disorder, recurrent, mild[ICD10: F33.0] Diagnosis: Sensorineural hearing loss, bilateral[ICD10: H90.3] Lesley Butcher MD, [facility] CPT-4: 04822 03/27/2018 ([id number]) Miscellaneous no charge Diagnosis: Essential (primary) hypertension[ICD10: I10] Mady Butcher MD, [facility] CPT-4: 24948 01/25/2018 ([id number]) 03782 EST. PATIENT, LEVEL IV Diagnosis: Essential (primary) hypertension[ICD10: I10] Diagnosis: Sensorineural hearing loss, bilateral[ICD10: H90.3] Diagnosis: Mixed hyperlipidemia[ICD10: E78.2] Diagnosis: Major depressive disorder, recurrent, mild[ICD10: F33.0] Lesley Butcher MD, [facility] CPT-4: 99668 01/24/2018 [id number] EST. PATIENT, LEVEL IV Diagnosis: Other malaise[ICD10: R53.81] Diagnosis: Fever, unspecified[ICD10: R50.9] Mady Butcher MD, [facility] CPT-4: 65325 12/08/2017 ([id number]) 95703 EST. PATIENT, LEVEL III Diagnosis: Essential (primary) hypertension[ICD10: I10] Lesley Butcher MD, [facility] CPT-4: 14676 10/27/2017 ([id number]) 29319 EST. PATIENT, LEVEL III Diagnosis: Benign prostatic hyperplasia with lower urinary tract symptoms[ICD10: N40.1] Diagnosis: Dysphagia, pharyngeal phase[ICD10: R13.13] Lesley Butcher MD, [facility] CPT-4: 67884 09/29/2017 ([id number]) 02090 EST. PATIENT, LEVEL IV Diagnosis: Essential (primary) hypertension[ICD10: I10] Diagnosis: Major depressive disorder, recurrent, mild[ICD10: F33.0] Diagnosis: Sensorineural hearing loss, bilateral[ICD10: H90.3] Lesley Butcher MD, [facility] CPT-4: 07471 09/01/2017 ([id number]) 81811 EST. PATIENT, LEVEL IV Diagnosis: Essential (primary) hypertension[ICD10: I10] Diagnosis: Major depressive disorder, recurrent, mild[ICD10: F33.0] Diagnosis: Mixed hyperlipidemia[ICD10: E78.2] Lesley Butcher MD [facility] CPT- 4: 71659 04/26/2017 [id number] 07434 EST. PATIENT, LEVEL IV Diagnosis: Essential (primary) hypertension[ICD10: I10] Diagnosis: Major depressive disorder, recurrent, mild[ICD10: F33.0] Diagnosis: Urge incontinence[ICD10: N39.41] Lesley Butcher MD, [facility] CPT-4: 54321 01/25/2017 ([id number]) 75491 EST. PATIENT, LEVEL IV Diagnosis: Essential (primary) hypertension[ICD10: I10] Diagnosis: Major depressive disorder, recurrent, mild[ICD10: F33.0] Diagnosis: Urge incontinence[ICD10: N39.41] Lesley Butcher MD [facility] CPT-4: 21440 10/26/2016 ([id number]) 75489 EST. PATIENT, LEVEL III Diagnosis: Essential (primary) hypertension[ICD10: I10] Diagnosis: Major depressive disorder, recurrent, mild[ICD10: F33.0] Diagnosis: Urge incontinence[ICD10: N39.41] Lesley Butcher MD [facility] CPT-4: 80478 09/27/2016 ([id number]) 74680 EST. PATIENT, LEVEL IV Diagnosis: Essential (primary) hypertension[ICD10: I10] Diagnosis: Encounter for immunization[ICD10: Z23] Diagnosis: Laceration without foreign body of left forearm, initial encounter[ICD10: S51.812A] Diagnosis: Laceration without foreign body of right forearm, initial encounter[ICD10: S51.811A] Diagnosis: Major depressive disorder, recurrent, mild[ICD10: F33.0] Lesley Butcher MD, [facility] CPT-4: 28074 06/28/2016 [id number]) 45103 EST. PATIENT, LEVEL IV Diagnosis: Essential (primary) hypertension[ICD10: I10] Diagnosis: Idiopathic gout, left ankle and foot[ICD10: M10.072] Diagnosis: Other iron deficiency anemias[ICD10: D50.8] Lesley Butcher MD, [facility] CPT-4: 63442 04/27/2016 ([id number]) 85653 EST. PATIENT, LEVEL V Diagnosis: Essential (primary) hypertension[ICD10: I10] Diagnosis: Major depressive disorder, recurrent, mild[ICD10: F33.0] Diagnosis: Idiopathic gout, left ankle and foot[ICD10: M10.072] Diagnosis: Mixed hyperlipidemia[ICD10: E78.2] Lesley Butcher MD, [facility] CPT- 4: 01373 02/17/2016 ([id number]) 27176 EST. 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 PATIENT, LEVEL IV Diagnosis: Weakness[ICD10: R53.1] Diagnosis: Gout, unspecified[ICD10: M10.9] Diagnosis: Hypotension, unspecified[ICD10: I95.9] Lesley Butcher MD, [facility] CPT-4: 03720 12/16/2015 ([id number]) Patient admitted to the hospital from clinic (NO CHARGE) Diagnosis: Hypoxemia[ICD10: R09.02] Diagnosis: Weakness[ICD10: R53.1] Diagnosis: Dyspnea, unspecified[ICD10: R06.00] Mady Butcher MD, [facility] CPT- 4: 06828K 11/27/2015 ([id number]) 65517 EST. PATIENT, LEVEL III Diagnosis: Essential (primary) hypertension[ICD10: I10] Diagnosis: Gastro-esophageal reflux disease without esophagitis[ICD10: K21.9] Lesley Butcher MD, [facility] CPT-4: 06186 07/30/2015 ([id number]) 93432 EST. PATIENT, LEVEL III Diagnosis: ESSENTIAL HYPERTENSION[ICD9: 401.9] Merline Milton Butcher MD, [facility] CPT-4: 61628 06/09/2015 ([id number]) 22247 EST. PATIENT, LEVEL III Diagnosis: ESSENTIAL HYPERTENSION[ICD9: 401.9] [facility] CPT- 4: 93781 04/29/2015 ([id number]) OFFICE/OUTPATIENT VISIT NEW Diagnosis: ESSENTIAL HYPERTENSION[ICD9: 401.9] Diagnosis: DEPRESSIVE DISORDER NEC[ICD9: 311] Diagnosis: Enlarged prostate[ICD9: 600.00] Diagnosis: Nasal inflammation due to allergen[ICD9: 477.9] Lesley Butcher MD, [facility] CPT-4: 88800 02/19/2015 Plan of Care Planned Activity Notes Codes Status Date Visit Plan: Afib-new diagnosis with cardiology -Dr Deleon -now on coumadin-will return to [place] in 2 weeks to discuss watchman device NPP-mrujwaweng-bk changes Urinary frequency and urgency -check UA [...] when he had previous blockages - his brush stainer in [place] does not seem to be as interested as his family would like - they are wondering about transitioning back to someone from his previous brush stainer group. They have a potential appt pending. [...] when he had previous blockages - his brush stainer in [place] does not seem to be as interested as his family would like - they are wondering about transitioning back to someone from his previous brush stainer group. They have a potential appt pending. I spent 45 minutes with the patient and his family in direct contact and discussion. 01/29/2019 Appointment: Lesley Butcher WPtel: [facility] (30 min) Complex 01/29/2019 Patient Education: Patient Medication Summary Completed 01/29/2019 Visit Plan: Left rib pain - x-ray pending - The pt is to use prn antiinflammatories to manage acute pain. The patient is to call the office if the pain is worsening or does not improve. 2019 Appointment: Mady Dunne WPtel: [facility] (30 min) Complex 2019 Patient Education: Patient [...] allergy spray. 01/08/2019 Appointment: Merline Rose WPtel: [phone] (30 min) Complex 01/08/2019 Patient Education: Patient Medication Summary Completed 01/08/2019 Visit Plan: Fatigue, shortness of breath, dizziness - pt is to continue PT, pt is to follow up with Dr. Panda and Dr. Harvey and is to notify clinic with any changes in the current treatment plan. 12/25/2018 Appointment: Mady Dunne WPtel: [phone] [facility] (15 min) Moderate 12/25/2018 Patient Education: Patient Medication Summary Completed 12/25/2018 Visit Plan: Shortness of breath - Hx of sleep apnea - will need to get pt an overnight oxygen study - we will call [facility] to set him up for an [...] at 96% 12/13/2018 Appointment: Lesley Butcher WPtel: [phone] [facility] (15 min) Moderate 12/13/2018 Patient Education: Patient Medication Summary Completed 12/13/2018 Visit Plan: BWW-qlruyen-pezvbzssr of breath -patient reports worsening of chronic symptoms -will check EKG and cardiac enzymes to evaluate for acute changes -recommend patient follow up with his brush stainer, Dr Sharyn vu -patient, and daughter verbalized understanding of plan. Generalized weakness-discussed PT referral after cleared by cardiology -patient's will call us when she wants to have it set up HTN-no change but monitor at home 11/27/2018 Appointment: Merline Rose WPtel: [phone] [phone] [place] (15 min) Moderate 11/27/2018 Patient Education: [...] sessions. 09/26/2018 [facility]ment: [phone] ([facility] min) Moderate 09/26/2018 Patient Education: Patient [...] surrogate. 08/10/2018 [facility]ment[phone] [facility] - Annual Wellness Visit 08/10/2018 Patient [...] at home. 07/26/2018 Appointment: Les[facility] But[facility]el[phone] [facility] (15 min) Moderate 07/26/2018 Patient Education: Patient [...] his dexamethasone. 06/12/2018 Appointment: Les[facility] Butcher [facility]Ptel: [phone] [facility] (15 min) Moderate 06/12/2018 Patient Education: Patient Medication Summary Completed 06/12/2018 Visit Plan: Diverticulosis with recent GI bleeding - improved - continue with supportive care, avoid foods which cause any abdominal pain - monitor symptoms - call if any pain or bleeding recurs. Anemia - check labs today. Weakness - continue with increasing of activity. 05/10/2018 Appointment: Lesley Butcher [facility]Ptel[phone] [facility] (30 min) Complex 05/10/2018 Patient Education: Patient [...] implant. 03/27/2018 Appointment: Lesley Butcher WPtel: [phone] [facility] (15 min) Moderate 03/27/2018 Patient Education: Patient [...] to medications. 01/24/2018 Appointment: Lesley Butcher WPtel: [facility] (15 min) Moderate 01/24/2018 Patient Education: Patient Medication Summary Completed 01/24/2018 Visit Plan: Influenza - pt started on tamiflu - pt to start on anti-inflammatories, tylenol and monitor symptoms. Pt to call if not improving. Pt to alert any close contacts as to illness. 12/08/2017 Appointment: Mady Dunne WPtel: [facility] (30 min) Complex 12/08/2017 Patient Education: Patient Medication Summary Completed 12/08/2017 Visit Plan: Hypertension - well controlled - continue with current medications, continue with no added salt diet. Pt has been encouraged to exercise daily. The pt has been advised to call the office if there are any acute concerns about change in blood pressure readings at home. 10/27/2017 Appointment: Lesley Butcher WPtel: [facility] (15 min) Moderate 10/27/2017 Patient Education: Patient Medication Summary Completed 10/27/2017 Referral: External, Ordering Provider Referral Initiated 10/12/2017 Visit Plan: BPH - continue with dutasteride and flomax Dysphagia - referral to Dr. Kumar for EGD - question stricture - dysphagia intermittently - hx of stricture. 09/29/2017 Appointment: Lesley Butcher [facility]Ptel: [phone] [facility] (15 min) Moderate 09/29/2017 Patient Education: Patient Medication Summary Completed 09/29/2017 Care Plan: Referral Order SNOMED-CT : [id number] Pending 09/29/2017 Visit Plan: Hypertension - well [...] recommended patient to have an evaluation at [facility] to see if he has potential for cochlear implant. 09/01/2017 Appointment: Lesley Butcher WPtel: [phone] [email or web address] (15 min) Moderate 09/01/2017 Patient Education: Patient Medication Summary Completed 09/01/2017 Care Plan: Referral Order SNOMED-CT : [id number] Pending 09/01/2017 Visit Plan: Medicare Exam - [...] surrogate. 08/03/2017 Appointment: [facility] Dunne [facility]Ptel[phone] [facility] [facility] - Welcome to Medicare visit 08/03/2017 [...] medications. 04/26/2017 Appointment: Lesley Butcher WPtel: [phone] [facility] (15 min) Moderate 04/26/2017 Patient Education: Patient [...] daily. 01/25/2017 Appointment: Lesley Butcher WPtel: [phone] [facility] (30 min) Complex 01/25/2017 Patient Education: Patient [...] [place] 10/26/2016 Appointment: Lesley Butcher WPtel: [phone] [facility] (15 min) Moderate 10/26/2016 Patient Education: [...] occur. 09/27/2016 Appointment: Lesley Butcher WPtel: [phone] [facility] (15 min) Moderate 09/27/2016 Patient Education: [...] andrea 06/28/2016 Appointment: Lesley Butcher WPtel: [phone] [facility] (15 min) Moderate 06/28/2016 Patient Education: [...] 1 month 02/17/2016 Appointment: Milton Merline WPtel: [address] [place] [phone] (30 min) Complex 02/17/2016 Patient Education: Patient [...] Summary Completed 12/16/2015 Appointment: Lesley Butcher WPtel: [address] [place] [address] (15 min) Moderate 12/04/2015 Appointment: Les[facility] Butcher WPtel: [phone] [facility] (15 min) Moderate 12/02/2015 Visit Plan: Admission [...] PHARMACY 07/30/2015 Appointment: Lesley Butcher WPtel: [phone] [facility] (15 min) Moderate 07/30/2015 Patient Education: Patient [...] home. 04/29/2015 Appointment: Lesley Butcher WPtel: [phone] [facility] (15 min) Moderate 04/29/2015 Patient Education: Patient [...] External, Ordering Provider Referral Appointment Requested Referral: [facility] 09/12 Referral info faxed Appointment Requested Referral: [facility] Referral Appointment Requested Instructions Comment . [...] gout-symptoms stable-continue allopurinol Allergies-recommend allergy eye drops-angela aVng-increase dexamethasone x 1 month ADDENDUM: Doctor's eval [...] planned injection in back and call the manager transplant about a biopsy of the lesion on [...] -Dr Deleon -now on coumadin-will return to [place] in 2 weeks to discuss watchman device DXU-sznnndkbpd-oh changes Urinary frequency and urgency -check UA -[facility] -will bring back sample . Hypertension - [...] ILLNESS. CHECK CARDIAC ENYZMES AND EKG . KRC-gdzbtvm-xqjdshzji of breath -patient reports worsening of chronic symptoms -will check EKG and cardiac enzymes to evaluate for acute changes -recommend patient follow up with his brush stainer, Dr Stokes -patient, and daughter verbalized understanding [...] recommended patient to have an evaluation at [facility] to see if he [...] when he had previous blockages - his brush stainer in [place] does not seem to be as interested as his family would like - they are wondering about transitioning back to someone from his previous brush stainer group. They have a potential appt pending. [...] when he had previous blockages - his brush stainer in [place] does not seem to be as interested as his family would like - they are wondering about transitioning back to someone from his previous brush stainer group. They have a potential appt pending. I spent 45 minutes with the patient and his family in direct contact and discussion.
--- NOTE | 2019-03-23 19:35 | NUR ---
i helped pt with urinal. ua saved if needed.
--- OUTSIDE RECORDS SUMMARY | 2019-03-23 19:35 | XMS REPORT | CCD ---
Author Author [facility] Organization [facility] Address [address] [place] [address] Phone Care Team Providers Care Urban Gardening Specialist Name Role Phone PP Unavailable CCM Unavailable Summary Purpose Interface Exchange Insurance Providers Payer name Policy type / Coverage type Covered libertarian ID Effective Begin Date Effective End Date WPS Medicare Part B Medicare Part B [id number] 2018 Unknown [facility] Medicare Part B [id number] 2018 Unknown Family history Father Diagnosis Age At Onset Hypertension Unknown Coronary Artery Disease Unknown Sister Diagnosis Age At Onset Heart disease Unknown Mother Diagnosis Age At Onset Coronary Artery Disease Unknown Hypertension Unknown Social History Social History Element Codes Description Effective Dates Marital status Unknown 02/19/2015 Number of children Unknown 2 02/19/2015 Employment Unknown Retired 02/19/[address]: 122202527 Has never smoked or chewed tobacco 02/19/2015 Alcohol history Unknown occasionally drinks alcohol 02/19/2015 Allergies, Adverse Reactions, Alerts Substance Reaction Codes Entered Date Inactivated Date Status bactrim RxNorm: 351767 12/19/2015 No Inactive Date Active ciprofloxacin RxNorm: 01927 02/18/2015 No Inactive Date Active Past Medical History Illness Codes Condition Status Onset Date Resolved Date Dizziness and giddiness ICD-9: 780.4 ICD-10: R42 Active 07/26/2018 Unknown Dyspnea, unspecified ICD- 9: 786.09 ICD-10: R06.00 Active 11/26/2015 Unknown Essential (primary) hypertension ICD-9: 401.1 ICD-10: I10 Active 06/27/2016 Unknown Mixed hyperlipidemia ICD- 9: [...] ICD- 9: 786.09 ICD-10: R06.00 11/26/2015 Active Essential (primary) hypertension ICD-9: 401.1 ICD-10: I10 06/27/2016 Active Mixed hyperlipidemia ICD- 9: 272.2 [...] Fill Instructions Requip 0.25 mg tablet RxNorm: 095723 1 Tablet(s) PO QHS 01/29/2019 01/23/2020 Active Flomax 0.4 mg capsule RxNorm: 252632 TAKE 1 CAPSULE BY MOUTH ONCE DAILY IN THE EVENING 01/25/2019 No Stop Date Active Requip 0.25 mg tablet RxNorm: 067288 1 Tablet(s) PO QHS 2019 01/28/2019 Inactive pantoprazole 40 mg tablet,delayed release RxNorm: 253485 TAKE ONE TABLET BY MOUTH ONCE DAILY AT BEDTIME 11/27/2018 No Stop Date Active atorvastatin 40 mg tablet RxNorm: 053935 1 Tablet(s) PO daily 09/26/2018 10/25/2018 Inactive dexamethasone 0.5 mg tablet RxNorm: 800103 TAKE 1 TABLET BY MOUTH ONCE DAILY 08/29/2018 No Stop Date Active clonazepam 1 mg tablet RxNorm: 177055 1/2 Tablet(s) PO QHS 08/24/2018 12/21/2018 Inactive allopurinol 100 mg tablet RxNorm: 523725 TAKE ONE TABLET BY MOUTH ONCE DAILY 08/03/2018 No Stop Date Active citalopram 40 mg tablet RxNorm: 471712 TAKE ONE TABLET BY MOUTH ONCE DAILY 06/13/2018 No Stop Date Active Kenalog 40 mg/mL suspension for injection RxNorm: 4952035 Milliliter(s) Inj 06/12/2018 06/12/2018 Inactive clonazepam 1 mg tablet RxNorm: 189399 1 Tablet(s) PO QHS 06/12/2018 08/23/2018 Inactive losartan 50 mg tablet RxNorm: 885368 1/2 Tablet(s) PO daily 05/24/2018 No Stop Date Active clonazepam 1 mg tablet RxNorm: 072561 1/2 Tablet(s) TAKE ONE TABLET BY MOUTH ONCE DAILY AT BEDTIME AND ONE TABLET THREE TIMES DAILY NEEDED 05/24/2018 06/11/2018 Inactive citalopram 40 mg tablet RxNorm: 402863 1/2 Tablet(s) TAKE ONE TABLET BY MOUTH ONCE DAILY 05/24/2018 09/25/2018 Inactive spironolactone 25 mg tablet RxNorm: 030977 TAKE ONE TABLET BY MOUTH ONCE DAILY 05/22/2018 No Stop Date Active dexamethasone 0.5 mg tablet RxNorm: 223268 TAKE ONE TABLET BY MOUTH ONCE DAILY 02/21/2018 08/28/2018 Inactive Flomax 0.4 mg capsule RxNorm: 847323 TAKE ONE CAPSULE BY MOUTH ONCE DAILY IN THE EVENING 12/19/2017 01/24/2019 Inactive Tamiflu 75 mg capsule RxNorm: 158825 1 Capsule(s) PO BID 12/08/2017 12/12/2017 Inactive clonazepam 1 mg tablet RxNorm: 365914 Tablet(s) TAKE ONE TABLET BY MOUTH ONCE DAILY AT BEDTIME AND ONE TABLET THREE TIMES DAILY NEEDED 11/28/2017 01/26/2018 Inactive pantoprazole 40 mg tablet,delayed release RxNorm: 997290 TAKE ONE TABLET BY MOUTH ONCE DAILY AT BEDTIME 11/07/2017 11/26/2018 Inactive allopurinol 100 mg tablet RxNorm: 479144 TAKE ONE TABLET BY MOUTH ONCE DAILY 10/03/2017 08/02/2018 Inactive pantoprazole 40 mg tablet,delayed release RxNorm: 781731 1 Tablet(s) PO BID 09/01/2017 05/28/2018 Inactive Vitamin B-6 100 mg tablet RxNorm: 530900 1 Tablet(s) PO daily 09/01/2017 06/11/2018 Inactive dutasteride 0.5 mg capsule RxNorm: 688033 1 Capsule(s) PO QPM 09/01/2017 06/11/2018 Inactive spironolactone 25 mg tablet RxNorm: 649172 TAKE ONE TABLET BY MOUTH ONCE DAILY 08/15/2017 05/21/2018 Inactive citalopram 40 mg tablet RxNorm: 326518 TAKE ONE TABLET BY MOUTH ONCE DAILY 08/08/2017 05/04/2018 Inactive dexamethasone 0.5 mg tablet RxNorm: 776196 TAKE ONE TABLET BY MOUTH ONCE DAILY 08/08/2017 11/05/2017 Inactive clonazepam 1 mg tablet RxNorm: 512552 TAKE ONE TABLET BY MOUTH ONCE DAILY AT BEDTIME AND ONE THREE TIMES DAILY NEEDED 05/12/2017 08/08/2017 Inactive clonazepam 1 mg tablet RxNorm: 876884 1 Tablet(s) PO QHS AND 1 TAB PO TID PRN 05/12/2017 05/13/2017 Inactive oxybutynin chloride ER 10 mg tablet,extended release 24 hr RxNorm: 094100 1 Tablet(s) PO daily 04/29/2017 08/02/2017 Inactive dexamethasone 0.5 mg tablet RxNorm: 629093 TAKE ONE TABLET BY MOUTH ONCE DAILY 02/14/2017 04/14/2017 Inactive Flomax 0.4 mg capsule RxNorm: 241677 TAKE ONE CAPSULE BY MOUTH ONCE DAILY IN THE EVENING 02/14/2017 11/10/2017 Inactive pantoprazole 40 mg tablet,delayed release RxNorm: 474363 TAKE ONE TABLET BY MOUTH ONCE DAILY AT BEDTIME 02/14/2017 08/31/2017 Inactive oxybutynin chloride ER 10 mg tablet,extended release 24 hr RxNorm: 498700 1 Tablet(s) PO daily 01/25/2017 04/24/2017 Inactive dexamethasone 0.5 mg tablet RxNorm: 511776 TAKE ONE TABLET BY MOUTH ONCE DAILY 11/10/2016 12/09/2016 Inactive oxybutynin chloride ER 5 mg tablet,extended release 24 hr RxNorm: 277187 1 Tablet(s) PO daily 10/28/2016 10/27/2016 Inactive oxybutynin chloride ER 5 mg tablet,extended release 24 hr RxNorm: 317930 1 Tablet(s) PO daily 10/28/2016 01/24/2017 Inactive Detrol LA 2 mg capsule,extended release RxNorm: 829429 1 Capsule(s) PO QPM 10/26/2016 10/27/2016 Inactive clonazepam 1 mg tablet RxNorm: 468493 1 Tablet(s) PO QHS AND 1 TAB PO TID PRN 10/20/2016 04/17/2017 Inactive dexamethasone 0.5 mg tablet RxNorm: 950572 TAKE ONE TABLET BY MOUTH ONCE DAILY 10/06/2016 11/04/2016 Inactive allopurinol 100 mg tablet RxNorm: 051118 1 Tablet(s) PO daily 09/30/2016 09/24/2017 Inactive Vesicare 5 mg tablet RxNorm: 349469 1 Tablet(s) PO QPM 09/27/2016 12/12/2016 Inactive spironolactone 25 mg tablet RxNorm: 717380 1 Tablet(s) PO daily 08/06/2016 07/31/2017 Inactive citalopram 40 mg tablet RxNorm: 672473 1 Tablet(s) PO daily 06/28/2016 06/22/2017 Inactive Plavix 75 mg tablet RxNorm: 281794 1 Tablet(s) PO daily 04/27/2016 No Stop Date Active iron ER 159 mg (45 mg iron) tablet,extended release RxNorm: 619625 1 Tablet(s) PO daily 04/27/2016 08/31/2017 Inactive dexamethasone 0.5 mg tablet RxNorm: 702586 1/2 Tablet(s) PO daily 04/27/2016 02/20/2018 Inactive allopurinol 100 mg tablet RxNorm: 867950 1 Tablet(s) PO daily 04/27/2016 09/29/2016 Inactive clonazepam 1 mg tablet RxNorm: 684938 1 Tablet(s) PO QHS and 1 tab po TID prn 04/14/2016 10/07/2016 Inactive allopurinol 100 mg tablet RxNorm: 240310 1 Tablet(s) PO daily 02/17/2016 04/26/2016 Inactive citalopram 20 mg tablet RxNorm: 429674 1 Tablet(s) PO daily 01/20/2016 06/27/2016 Inactive Flomax 0.4 mg capsule RxNorm: 198667 1 Capsule(s) PO QPM 01/20/2016 01/13/2017 Inactive [SAVINGS FOR NON-COVERED DRUGS -- BIN:[id number], PCN: ASPROD1, Group: XXXXX, ID# [id number], Questions: . THIS IS NOT INSURANCE.] pantoprazole 40 mg tablet,delayed release RxNorm: 595821 1 Tablet(s) PO QHS 01/20/2016 01/13/2017 Inactive Colcrys 0.6 mg tablet RxNorm: 875647 1 Tablet(s) PO daily 01/06/2016 03/05/2016 Inactive take daily x 7 days then daily as needed for gout flair colchicine 0.6 mg tablet RxNorm: 629046 1 Tablet(s) PO BID 12/30/2015 01/01/2016 Inactive doxycycline hyclate 100 mg tablet RxNorm: 858286 1 Tablet(s) PO BID 12/19/2015 12/28/2015 Inactive doxycycline hyclate 100 mg tablet RxNorm: 260937 1 Tablet(s) PO BID 12/19/2015 12/18/2015 Inactive allopurinol 100 mg tablet RxNorm: 991163 1 Tablet(s) PO daily 12/16/2015 02/16/2016 Inactive colchicine 0.6 mg tablet RxNorm: 279950 Tablet(s) PO 1.2 mg PO in the morning and 0.6 mg at night for 2 days. 12/16/2015 12/29/2015 Inactive allopurinol 100 mg tablet RxNorm: 326319 1 Tablet(s) PO daily 12/16/2015 12/15/2015 Inactive Protonix 40 mg tablet,delayed release RxNorm: 808335 1 Tablet(s) PO daily 12/16/2015 01/14/2016 Inactive Bactrim DS 800 mg-160 mg tablet RxNorm: 703573 1 Tablet(s) PO BID 12/16/2015 12/18/2015 Inactive colchicine 0.6 mg tablet RxNorm: 626151 Tablet(s) PO 1.2 mg for the first dose and 0.6 mg an hour after 12/15/2015 12/15/2015 Inactive dexamethasone 0.5 mg tablet RxNorm: 987287 1 Tablet(s) PO 12/12/2015 02/09/2016 Inactive Plavix 75 mg tablet RxNorm: 220760 1 Tablet(s) PO every other day 12/12/2015 04/09/2016 Inactive nitroglycerin 0.4 mg sublingual tablet RxNorm: 508299 1 Tablet(s) SL x3 in 15 min as needed 12/12/2015 04/26/2016 Inactive clonazepam 1 mg tablet RxNorm: 776095 1 Tablet(s) PO QHS and 1 tab po TID prn 12/11/2015 12/03/2016 Inactive Lapwai 5 mg-325 mg tablet RxNorm: 954568 1-2 Tablet(s) PO Q6 as needed 12/11/2015 09/26/2016 Inactive clonazepam 1 mg tablet RxNorm: 800527 1 Tablet(s) PO QHS and 1 tab po TID prn 12/04/2015 12/10/2015 Inactive Flomax 0.4 mg capsule RxNorm: 009216 1 Capsule(s) PO QPM 09/22/2015 01/19/2016 Inactive [SAVINGS FOR NON-COVERED DRUGS -- BIN:[id number], PCN: ASPROD1, Group: XXXXX, ID# [id number], Questions: . THIS IS NOT INSURANCE.] Flomax 0.4 mg capsule RxNorm: 672616 1 Capsule(s) PO QPM 09/16/2015 09/21/2015 Inactive [SAVINGS FOR NON-COVERED DRUGS -- BIN:[id number], PCN: ASPROD1, Group: XXXXX, ID# XXXXXXX, Questions: . THIS IS NOT INSURANCE.] clonazepam 1 mg tablet RxNorm: 593043 1 Tablet(s) PO QHS 08/29/2015 12/03/2015 Inactive coenzyme Q10 10 mg tablet RxNorm: 052618 1 Tablet(s) PO daily 07/30/2015 01/05/2016 Inactive spironolactone 25 mg tablet RxNorm: 471837 1 Tablet(s) PO daily 07/28/2015 07/21/2016 Inactive spironolactone 25 mg tablet RxNorm: 355569 1 Tablet(s) PO daily 07/22/2015 07/27/2015 Inactive clonazepam 1 mg tablet RxNorm: 188720 1 Tablet(s) PO QHS 05/23/2015 08/28/2015 Inactive losartan 25 mg tablet RxNorm: 835783 1 Tablet(s) PO daily 02/19/2015 03/20/2015 Inactive Flonase Allergy Relief 50 mcg/actuation nasal spray,suspension RxNorm: 1 [place] NASAL BID 02/19/2015 04/26/2016 Inactive [SAVINGS FOR NON-COVERED DRUGS -- BIN:[id number], PCN: ASPROD1, Group: XXXXX, ID# XXXXXXX, Questions: . THIS IS NOT INSURANCE.] Flomax 0.4 mg capsule RxNorm: 436850 1 Capsule(s) PO QPM 02/19/2015 09/15/2015 Inactive [SAVINGS FOR NON-COVERED DRUGS -- BIN:303750, PCN: ASPROD1, Group: XXXXX, ID# XXXXXXX, Questions: . THIS IS NOT INSURANCE.] citalopram 20 mg tablet RxNorm: 720923 1 Tablet(s) PO daily 02/19/2015 03/20/2015 Inactive atenolol 25 mg tablet RxNorm: 927834 1 Tablet(s) PO daily 02/19/2015 03/20/2015 Inactive Lipitor 20 mg tablet RxNorm: 922728 1 Tablet(s) PO daily 02/19/2015 03/20/2015 Inactive vitamin B complex oral RxNorm: 58031 oral No Start Date Active Rachel oral RxNorm: 903091 oral No Start Date Active Lipitor oral RxNorm: 82179 oral No Start Date Active Aleve 220 mg tablet RxNorm: 565200 Tablet(s) PO as needed No Start Date Active Vitamin D3 1,000 unit capsule RxNorm: 244229 2 Capsule(s) PO daily No Start Date Active Centrum Complete oral RxNorm: 31712 oral No Start Date Active Carafate 1 gram tablet RxNorm: 276167 1 Tablet(s) PO every other day No Start Date Active glucosamine HCl 1,500 mg tablet RxNorm: 410979 1 Tablet(s) with 1200 mg chrondroitin PO daily No Start Date 08/01/2018 Inactive Claritin-D 24 Hour oral RxNorm: 670950 oral No Start Date 01/07/2019 Inactive ranitidine 150 mg tablet RxNorm: 300899 1 Tablet(s) PO TID No Start Date 12/11/2015 Inactive Lapwai 5 mg-325 mg tablet RxNorm: 656803 1-2 Tablet(s) PO Q6 as needed No Start Date 12/10/2015 Inactive krill oil oral RxNorm: 62689 oral No Start Date 08/07/2018 Inactive Vitamin B-6 100 mg tablet RxNorm: 622121 1 Tablet(s) PO TID No Start Date 08/31/2017 Inactive spironolactone 25 mg tablet RxNorm: 896242 1 Tablet(s) PO daily No Start Date 07/21/2015 Inactive Vitamin D3 oral RxNorm: 2418 oral No Start Date 02/17/2016 Inactive clonazepam 1 mg tablet RxNorm: 273058 1 Tablet(s) PO daily No Start Date 05/22/2015 Inactive Glucosamine oral RxNorm: 4845 oral No Start Date 04/26/2016 Inactive cetirizine 10 mg tablet RxNorm: 8589294 1 Tablet(s) PO daily No Start Date 01/07/2019 Inactive losartan 50 mg tablet RxNorm: 331097 1 Tablet(s) PO daily No Start Date 05/23/2018 Inactive Plavix 75 mg tablet RxNorm: 932530 1 Tablet(s) PO every other day No Start Date 12/11/2015 Inactive Osteo Bi-Flex oral RxNorm: 9397595 oral No Start Date 09/01/2017 Inactive iron ER 159 mg (45 mg iron) tablet,extended release RxNorm: 718716 1 Tablet(s) PO BID No Start Date 04/26/2016 Inactive amlodipine 5 mg tablet RxNorm: 644231 1 Tablet(s) PO daily No Start Date 01/05/2016 Inactive aspirin 81 mg tablet,delayed release RxNorm: 236002 1 Tablet(s) PO daily No Start Date 05/09/2018 Inactive dexamethasone 0.5 mg tablet RxNorm: 693264 1 Tablet(s) PO No Start Date 12/11/2015 Inactive Vitamin B-12 1,000 mcg tablet RxNorm: 241774 6 Tablet(s) PO every other day No Start Date 06/11/2018 Inactive colchicine 0.6 mg tablet RxNorm: 613426 Tablet(s) PO 1.2 mg for the first dose and 0.6 mg an hour after No Start Date 12/14/2015 Inactive nitroglycerin 0.4 mg sublingual tablet RxNorm: 542590 1 Tablet(s) SL x3 in 15 min as needed No Start Date 12/11/2015 Inactive Fish Oil 1,000 mg capsule RxNorm: 1 Capsule(s) PO daily No Start Date 04/26/2016 Inactive Ecotrin Low Strength 81 mg tablet,enteric coated RxNorm: 1112208 1 Tablet(s) PO daily No Start Date 09/27/2016 Inactive Medication Administered Medication Codes Instructions Start Date Status Kenalog 40 mg/mL suspension for injection RxNorm: 6263500 Milliliter 06/12/2018 No longer Active Immunizations Vaccine [...] and giddiness ICD-10: R42 ICD-9: 780.4 01/29/2019 Essential (primary) hypertension ICD-10: I10 ICD-9: 401.1 01/29/2019 Pleurodynia ICD-10: R07.81 ICD-9: 786.50 2019 [...] Reason For Visit Effective Dates Notes fatigue 01/29/2019 flank pain 2019 fatigue 01/08/2019 [...] 30.4 pg 10/20/2018 Cbc With Differential Ord2 [place]% 5.7 % 10/20/2018 Cbc With Differential Ord2 [...] 1.69 K/ul 10/20/2018 Cbc With Differential Ord2 [place] ABS# 0.6 K/ul 10/20/2018 Cbc With Differential Ord2 Eos ABS# 0.0 K/ul 10/20/2018 Cbc With Differential Ord2 Baso ABS# 0.0 K/ul 10/20/2018 Comp Metabolic Evm672 NA 140 mEq/L 10/20/2018 Comp Metabolic Rls686 K 4.0 mEq/L 10/20/2018 Comp Metabolic Zdh669 CL 104 mEq/L 10/20/2018 Comp Metabolic Fxl741 CO2 28.0 mEq/L 10/20/2018 Comp Metabolic Bmj049 ANION GAP 12 10/20/2018 Comp Metabolic Shv973 GLUCOSE 113 mg/dL 10/20/2018 Comp Metabolic Pbi134 Creat 1.0 mg/dL 10/20/2018 Comp Metabolic Iqo182 eGFR 75 ml/min/1.73m2 10/20/2018 Comp Metabolic Mkn643 BUN 18 mg/dL 10/20/2018 Comp Metabolic Abf402 B/C Ratio 17.8 Ratio 10/20/2018 Comp Metabolic Gil632 CALCIUM 9.8 mg/dL 10/20/2018 Comp Metabolic Pvy780 ALK PHOS 70 U/L 10/20/2018 Comp Metabolic Ylp623 AST(SGOT) 15 U/L 10/20/2018 Comp Metabolic Uzc593 ALT(SGPT) 18 U/L 10/20/2018 Comp Metabolic Otv147 BILI T 1.1 mg/dL 10/20/2018 Comp Metabolic Xuw291 ALBUMIN 4.4 g/dL 10/20/2018 Comp Metabolic Dnq793 TPRO 6.9 g/dL 10/20/2018 Comp Metabolic Uih737 GLOB 2.5 g/dL 10/20/2018 Comp Metabolic Kpg272 A/G Ratio 1.7 Ratio 10/20/2018 Comp Metabolic Dys261 Osmo 282 mOsmo 10/20/2018 Urinalysis Ord28 U-Color [...] 29.0 pg 07/14/2018 Cbc With Differential Ord2 [place]% 7.5 % 07/14/2018 Cbc With Differential Ord2 [...] 1.92 K/ul 07/14/2018 Cbc With Differential Ord2 [place] ABS# 0.4 K/ul 07/14/2018 Cbc With Differential Ord2 Eos ABS# 0.2 K/ul 07/14/2018 Cbc With Differential Ord2 Baso ABS# 0.0 K/ul 07/14/2018 Renal Qqd194 NA 140 mEq/L 07/14/2018 Renal Eio010 K 4.2 mEq/L 07/14/2018 Renal Szy734 CL 103 mEq/L 07/14/2018 Renal Qvb991 CO2 29.0 mEq/L 07/14/2018 Renal Abb056 ANION GAP 12 07/14/2018 Renal Wud471 Osmo 280 mOsmo 07/14/2018 Renal Efw517 GLUCOSE 95 mg/dL 07/14/2018 Renal Bsd842 BUN 15 mg/dL 07/14/2018 Renal Wqx219 Creat 1.2 mg/dL 07/14/2018 Renal Tzj956 eGFR 64 ml/min/1.73m2 07/14/2018 Renal Oem694 B/C Ratio 12.8 Ratio 07/14/2018 Renal Lty624 CALCIUM 9.6 mg/dL 07/14/2018 Renal Mcc663 PHOS 3.2 mg/dL 07/14/2018 Renal Say135 ALBUMIN 4.4 g/dL 07/14/2018 Magnesium Ord90 Mag [...] 29.7 pg 06/08/2018 Cbc With Differential Ord2 [place]% 8.7 % 06/08/2018 Cbc With Differential Ord2 [...] 2.14 K/ul 06/08/2018 Cbc With Differential Ord2 [place] ABS# 0.5 K/ul 06/08/2018 Cbc With Differential Ord2 Eos ABS# 0.2 K/ul 06/08/2018 Cbc With Differential Ord2 Baso ABS# 0.0 K/ul 06/08/2018 Comp Metabolic Amx086 NA 139 mEq/L 06/08/2018 Comp Metabolic Bzp097 K 4.6 mEq/L 06/08/2018 Comp Metabolic Qrm641 CL 105 mEq/L 06/08/2018 Comp Metabolic Zey458 CO2 26.0 mEq/L 06/08/2018 Comp Metabolic Tnp227 ANION GAP 13 06/08/2018 Comp Metabolic Nhs177 GLUCOSE 95 mg/dL 06/08/2018 Comp Metabolic Ngd902 Creat 1.2 mg/dL 06/08/2018 Comp Metabolic Lho305 eGFR 59 ml/min/1.73m2 06/08/2018 Comp Metabolic Tyf969 BUN 12 mg/dL 06/08/2018 Comp Metabolic Exn286 B/C Ratio 9.7 Ratio 06/08/2018 Comp Metabolic Mzv369 CALCIUM 9.9 mg/dL 06/08/2018 Comp Metabolic Rcl415 ALK PHOS 70 U/L 06/08/2018 Comp Metabolic Ujm762 AST(SGOT) 21 U/L 06/08/2018 Comp Metabolic Upt003 ALT(SGPT) 20 U/L 06/08/2018 Comp Metabolic Ucn371 BILI T 1.0 mg/dL 06/08/2018 Comp Metabolic Bxl076 ALBUMIN 4.5 g/dL 06/08/2018 Comp Metabolic Ysa141 TPRO 7.2 g/dL 06/08/2018 Comp Metabolic Zej516 GLOB 2.8 g/dL 06/08/2018 Comp Metabolic Rhr770 A/G Ratio 1.6 Ratio 06/08/2018 Comp Metabolic Pnv435 Osmo 277 mOsmo 06/08/2018 Cbc With Differential [...] 30.6 pg 05/10/2018 Cbc With Differential Ord2 [place]% 6.5 % 05/10/2018 Cbc With Differential Ord2 [...] 1.94 K/ul 05/10/2018 Cbc With Differential Ord2 [place] ABS# 0.4 K/ul 05/10/2018 Cbc With Differential [...] Ord30 C/HDL 4.2 Ratio 01/26/2018 Comp Metabolic Pra600 NA 138 mEq/L 01/26/2018 Comp Metabolic Njx047 K 4.2 mEq/L 01/26/2018 Comp Metabolic Iqg088 CL 105 mEq/L 01/26/2018 Comp Metabolic Shw968 CO2 23.0 mEq/L 01/26/2018 Comp Metabolic Rjc652 ANION GAP 14 01/26/2018 Comp Metabolic Kdn944 GLUCOSE 89 mg/dL 01/26/2018 Comp Metabolic Xin882 Creat 1.1 mg/dL 01/26/2018 Comp Metabolic Oiy482 eGFR 70 ml/min/1.73m2 01/26/2018 Comp Metabolic Gif772 BUN 18 mg/dL 01/26/2018 Comp Metabolic Mfn452 B/C Ratio 16.8 Ratio 01/26/2018 Comp Metabolic Ibl957 CALCIUM 9.2 mg/dL 01/26/2018 Comp Metabolic Oan253 ALK PHOS 67 U/L 01/26/2018 Comp Metabolic Dpa534 AST(SGOT) 31 U/L 01/26/2018 Comp Metabolic Hcb006 ALT(SGPT) 23 U/L 01/26/2018 Comp Metabolic Fjj645 BILI T 1.7 mg/dL 01/26/2018 Comp Metabolic Tcn948 ALBUMIN 3.9 g/dL 01/26/2018 Comp Metabolic Nch849 TPRO 6.7 g/dL 01/26/2018 Comp Metabolic Fvq067 GLOB 2.8 g/dL 01/26/2018 Comp Metabolic Qwg522 A/G Ratio 1.4 Ratio 01/26/2018 Comp Metabolic Bkp205 Osmo 277 mOsmo 01/26/2018 Cbc With Differential [...] 30.7 pg 01/26/2018 Cbc With Differential Ord2 [place]% 7.1 % 01/26/2018 Cbc With Differential Ord2 [...] 2.40 K/ul 01/26/2018 Cbc With Differential Ord2 [place] ABS# 0.5 K/ul 01/26/2018 Cbc With Differential Ord2 Eos ABS# 0.2 K/ul 01/26/2018 Cbc With Differential Ord2 Baso ABS# 0.0 K/ul 01/26/2018 Tsh Ord6 TSH (3rd IS) 1.81 uIU/mL 01/26/2018 Testosterone Vbt546 Testo 370.3 ng/dL 01/26/2018 C A/B FLU [id number] Influenza A Scr Negative 12/08/2017 C A/B FLU [id number] Influenza B Scr Negative 12/08/2017 C A/B FLU [id number] Influenza Intrp B AG:PRID:PT:NOSE:NOM:IF See Footnote 12/08/2017 [...] 30.8 pg 04/11/2017 Cbc With Differential Ord2 [place]% 8.1 % 04/11/2017 Cbc With Differential Ord2 [...] 1.91 K/ul 04/11/2017 Cbc With Differential Ord2 [place] ABS# 0.5 K/ul 04/11/2017 Cbc With Differential Ord2 Eos ABS# 0.2 K/ul 04/11/2017 Cbc With Differential Ord2 Baso ABS# 0.0 K/ul 04/11/2017 Comp Metabolic Mkq789 NA 140 mEq/L 04/11/2017 Comp Metabolic Zff432 K 4.1 mEq/L 04/11/2017 Comp Metabolic Fpw834 CL 105 mEq/L 04/11/2017 Comp Metabolic Rqq275 CO2 26.0 mEq/L 04/11/2017 Comp Metabolic Ula014 ANION GAP 13 04/11/2017 Comp Metabolic Qtx165 GLUCOSE 88 mg/dL 04/11/2017 Comp Metabolic Bma213 Creat 1.1 mg/dL 04/11/2017 Comp Metabolic Pxl227 eGFR 66 ml/min/1.73m2 04/11/2017 Comp Metabolic Uvo396 BUN 18 mg/dL 04/11/2017 Comp Metabolic Yow634 B/C Ratio 15.9 Ratio 04/11/2017 Comp Metabolic Yfs993 CALCIUM 9.0 mg/dL 04/11/2017 Comp Metabolic Bno687 ALK PHOS 72 U/L 04/11/2017 Comp Metabolic Bmi714 AST(SGOT) 22 U/L 04/11/2017 Comp Metabolic Cvk212 ALT(SGPT) 26 U/L 04/11/2017 Comp Metabolic Wky120 BILI T 1.0 mg/dL 04/11/2017 Comp Metabolic Gdu531 ALBUMIN 4.0 g/dL 04/11/2017 Comp Metabolic Qri696 TPRO 6.4 g/dL 04/11/2017 Comp Metabolic Cgd406 GLOB 2.4 g/dL 04/11/2017 Comp Metabolic Mgv011 A/G Ratio 1.6 Ratio 04/11/2017 Comp Metabolic Kny367 Osmo 281 mOsmo 04/11/2017 Vitamin D 25 Oh Vkt2319 VITAMIN D, 25 HYDROXY 65.52 ng/mL 05/19/2016 [...] 28.5 pg 05/18/2016 Cbc With Differential Ord2 [place]% 7.2 % 05/18/2016 Cbc With Differential Ord2 [...] 1.80 K/ul 05/18/2016 Cbc With Differential Ord2 [place] ABS# 0.4 K/ul 05/18/2016 Cbc With Differential Ord2 Eos ABS# 0.2 K/ul 05/18/2016 Cbc With Differential Ord2 Baso ABS# 0.0 K/ul 05/18/2016 Magnesium Ord90 Mag 2.0 mg/dL 05/18/2016 Renal Unf984 NA 139 mEq/L 05/18/2016 Renal Nbc494 K 4.0 mEq/L 05/18/2016 Renal Vyq783 CL 104 mEq/L 05/18/2016 Renal Cyv406 CO2 27.0 mEq/L 05/18/2016 Renal Rco721 ANION GAP 12 05/18/2016 Renal Sea634 Osmo 279 mOsmo 05/18/2016 Renal Ceg000 GLUCOSE 91 mg/dL 05/18/2016 Renal Dmw559 BUN 18 mg/dL 05/18/2016 Renal Lcc036 Creat 1.3 mg/dL 05/18/2016 Renal Qhz346 eGFR 59 ml/min/1.73m2 05/18/2016 Renal Vby985 B/C Ratio 14.3 Ratio 05/18/2016 Renal Dqx631 CALCIUM 9.3 mg/dL 05/18/2016 Renal Opq377 PHOS 3.2 mg/dL 05/18/2016 Renal Jyw258 ALBUMIN 4.2 g/dL 05/18/2016 Random Urine Protein/Creatinine Ratio Gxl4958 U Prot 15.0 mg/dl 05/18/2016 Random Urine Protein/Creatinine Ratio Oqi4596 U CREAT 141.0 mg/dL 05/18/2016 Random Urine Protein/Creatinine Ratio Kzu0522 R MTP/Creat Ratio 0.11 05/18/2016 Urinalysis Ord28 [...] 28.5 pg 02/19/2016 Cbc With Differential Ord2 [place]% 9.5 % 02/19/2016 Cbc With Differential Ord2 [...] 1.91 K/ul 02/19/2016 Cbc With Differential Ord2 [place] ABS# 0.5 K/ul 02/19/2016 Cbc With Differential Ord2 Eos ABS# 0.2 K/ul 02/19/2016 Cbc With Differential Ord2 Baso ABS# 0.0 K/ul 02/19/2016 Cbc With Differential Ord2 New Analyzer Notice Please note new ref ranges starting 10-29-2015 due to implemntation of new five part differential hematolgy analyzer. 02/19/2016 Tsh Ord6 hTSH II 2.10 uIU/mL 02/19/2016 Comp Metabolic Iyp593 NA 138 mEq/L 02/19/2016 Comp Metabolic Gvn179 K 3.8 mEq/L 02/19/2016 Comp Metabolic Qig876 CL 103 mEq/L 02/19/2016 Comp Metabolic Azq430 CO2 28.0 mEq/L 02/19/2016 Comp Metabolic Mlr624 ANION GAP 11 02/19/2016 Comp Metabolic Upk052 GLUCOSE 94 mg/dL 02/19/2016 Comp Metabolic Fbw831 Creat 1.0 mg/dL 02/19/2016 Comp Metabolic Sgb893 eGFR 75 ml/min/1.73m2 02/19/2016 Comp Metabolic Wvm699 BUN 18 mg/dL 02/19/2016 Comp Metabolic Lgn263 B/C Ratio 17.6 Ratio 02/19/2016 Comp Metabolic Ffo332 CALCIUM 9.6 mg/dL 02/19/2016 Comp Metabolic Ujo504 ALK PHOS 93 U/L 02/19/2016 Comp Metabolic Cky227 AST(SGOT) 23 U/L 02/19/2016 Comp Metabolic Qec795 ALT(SGPT) 19 U/L 02/19/2016 Comp Metabolic Ppe549 BILI T 0.8 mg/dL 02/19/2016 Comp Metabolic Cis191 ALBUMIN 4.1 g/dL 02/19/2016 Comp Metabolic Wme536 TPRO 6.8 g/dL 02/19/2016 Comp Metabolic Fdt264 GLOB 2.7 g/dL 02/19/2016 Comp Metabolic Dtb008 A/G Ratio 1.5 Ratio 02/19/2016 Comp Metabolic Esy610 Osmo 277 mOsmo 02/19/2016 Uric Acid Ord77 Uric A 6.0 mg/dL 02/19/2016 Total Psa Ord10 PSA 0.82 ng/mL 02/19/2016 Comp Metabolic Hse653 NA 140 mEq/L 12/16/2015 Comp Metabolic Jma142 K 4.0 mEq/L 12/16/2015 Comp Metabolic Gnb489 CL 105 mEq/L 12/16/2015 Comp Metabolic Uxh235 CO2 24.0 mEq/L 12/16/2015 Comp Metabolic Rpw459 ANION GAP 15 12/16/2015 Comp Metabolic Beu388 GLUCOSE 85 mg/dL 12/16/2015 Comp Metabolic Cak765 Creat 1.2 mg/dL 12/16/2015 Comp Metabolic Hxn911 eGFR 65 ml/min/1.73m2 12/16/2015 Comp Metabolic Ogo933 BUN 14 mg/dL 12/16/2015 Comp Metabolic Rtd845 B/C Ratio 12.1 Ratio 12/16/2015 Comp Metabolic Ars593 CALCIUM 9.1 mg/dL 12/16/2015 Comp Metabolic Muv828 ALK PHOS 162 U/L 12/16/2015 Comp Metabolic Tcs439 AST(SGOT) 14 U/L 12/16/2015 Comp Metabolic Mjw064 ALT(SGPT) 17 U/L 12/16/2015 Comp Metabolic Eyi749 BILI T 1.0 mg/dL 12/16/2015 Comp Metabolic Kuc653 ALBUMIN 3.4 g/dL 12/16/2015 Comp Metabolic Pzv638 TPRO 6.2 g/dL 12/16/2015 Comp Metabolic Ena206 GLOB 2.9 g/dL 12/16/2015 Comp Metabolic Kxv893 A/G Ratio 1.2 Ratio 12/16/2015 Comp Metabolic Pzg150 Osmo 279 mOsmo 12/16/2015 Uric Acid Ord77 [...] 29.9 % 12/16/2015 Cbc With Differential Ord2 [place]% 7.5 % 12/16/2015 Cbc With Differential Ord2 [...] 1.52 K/ul 12/16/2015 Cbc With Differential Ord2 [place] ABS# 0.4 K/ul 12/16/2015 Cbc With Differential [...] C/HDL 4.0 Ratio 07/21/2015 Urine Protein 24Hr Toa427 U Prot 5.1 mg/dl 05/16/2015 Urine Protein 24Hr Wvr361 U Prot24 71.5 mg/24hr 05/16/2015 Total Volume Urine Lfc839 TV/24hr 1400 ml 05/16/2015 Total Psa Ord10 PSA 0.70 ng/mL 05/15/2015 Renal Iyz705 NA 135 mEq/L 05/15/2015 Renal Bru925 K 3.9 mEq/L 05/15/2015 Renal Bjq932 CL 101 mEq/L 05/15/2015 Renal Meb865 CO2 27.0 mEq/L 05/15/2015 Renal Efo631 ANION GAP 11 05/15/2015 Renal Pbf480 Osmo 274 mOsmo 05/15/2015 Renal Jzh700 GLUCOSE 132 mg/dL 05/15/2015 Renal Uki156 BUN 19 mg/dL 05/15/2015 Renal Csk049 Creat 1.1 mg/dL 05/15/2015 Renal Vjb383 eGFR 67 ml/min/1.73m2 05/15/2015 Renal Dfi237 B/C Ratio 17.0 Ratio 05/15/2015 Renal Qgz841 CALCIUM 9.6 mg/dL 05/15/2015 Renal Snz998 PHOS 3.0 mg/dL 05/15/2015 Renal Sgg059 ALBUMIN 4.3 g/dL 05/15/2015 Cbc With Differential [...] Result Effective Dates Constitutional No recent illness 01/29/2019 Constitutional No [...] dentition 01/08/2019 None Full Exam - General 1995 [...] hygiene 12/25/2018 None Full Exam - General 1995 Eyes conjunctiva/eyelids Overall: conjunctiva clear 12/25/2018 None Full Exam - General 1995 Eyes conjunctiva/eyelids Overall: cornea clear 12/25/2018 None Full Exam - General 1995 Eyes conjunctiva/eyelids Overall: eyelids normal 12/25/2018 None [...] 1994 Ears/Nose/Throat oral cavity/pharynx/larynx Overall: hypopharynx benign 12/13/2018 [...] clubbing 12/13/2018 None Full Exam - General 1995 Cardiovascular auscultation of heart Overall: regular rate [...] tympanosclerosis 10/27/2017 None Full Exam - General 1995 Ears/Nose/Throat lips/teeth/gingiva Overall: benign lips 10/27/2017 None [...] General 1995 Eyes conjunctiva/eyelids Overall: conjunctiva clear 10/26/2016 None Full Exam - General 1994 Eyes conjunctiva/eyelids Overall: cornea clear 10/26/2016 None Full Exam - General 1994 Eyes conjunctiva/eyelids Overall: eyelids normal 10/26/2016 None Full Exam - General 1994 Eyes pupils and irises Overall: pupils equal, round, reactive to light and accomodation 10/26/2016 None Full Exam - General 1995 [...] Formatting Model/CDA Sections, Assigned to/Sharee Ramirez CPT-4: 34082Ophdhaz 07/05/2018 THER/PROPH/DIAG INJ SC/IM CPT-4: 18806 06/12/2018 TRIAMCINOLONE ACET INJ NOS CPT-4: J3301 06/12/2018 PPPS, SUBSEQ VISIT CPT- 4: G0439 08/03/2017 ADMIN INFLUENZA VIRUS VAC CPT-4: G0008 06/28/2016 FLU VACC PRSV FREE INC ANTIG CPT-4: 46380 06/28/2016 TENIVAC TD VACCINE NO PRSRV 7/> IM CPT-4: 46967 06/28/2016 OCCULT BLOOD FECES CPT- 4: 11038 02/19/2015 Vital Signs Date Vital 01/29/2019 Blood Pressure 1: 110/78 Code: 8480-6 BMI: 28.5 Code: 74078-4 Heart Rate 1: 98 bpm Height: 6' SpO2: 90% Weight: 210 lbs 2019 Blood Pressure 1: 136/74 Code: 8480-6 BMI: 28.6 Code: 67686-8 Heart Rate 1: 97 bpm Height: 6' SpO2: 94% Weight: 211 lbs 01/08/2019 Blood Pressure 1: 128/86 Code: 8480-6 BMI: 28.6 Code: 81916-9 Heart Rate 1: 96 bpm Height: 6' SpO2: 97% Weight: 211 lbs 12/25/2018 Blood Pressure 1: 112/62 Code: 8480-6 BMI: 28.6 Code: 65122-6 Heart Rate 1: 76 bpm Height: 6' SpO2: 96% Weight: 211 lbs 12/13/2018 Blood Pressure 1: 114/78 Code: 8480-6 BMI: 29.4 Code: 09969-3 Heart Rate 1: 73 bpm Height: 6' SpO2: 93% Weight: 217 lbs 11/27/2018 Blood Pressure 1: 110/70 Code: 8480-6 BMI: 28.5 Code: 51920-5 Heart Rate 1: 90 bpm Height: 6' SpO2: 95% Temperature: 36.8 (C) / 98.2 (F) Weight: 210 lbs 8 oz 09/26/2018 Blood Pressure 1: 130/80 Code: 8480-6 BMI: 29.6 Code: 94092-4 Heart Rate 1: 98 bpm Height: 6' SpO2: 93% Weight: 218 lbs 08/10/2018 BMI: 29.4 Code: 82698-7 Height: 6' Weight: 217 lbs 07/26/2018 Blood Pressure 1: 116/72 Code: 8480-6 BMI: 29.4 Code: 80086-8 Heart Rate 1: 102 bpm Height: 6' SpO2: 96% Weight: 217 lbs 07/05/2018 Blood Pressure 1: 132/72 Code: 8480-6 Heart Rate 1: 60 bpm SpO2: 95% 06/12/2018 Blood Pressure 1: 120/78 Code: 8480-6 BMI: 29.6 Code: 64426-8 Heart Rate 1: 103 bpm Height: 6' SpO2: 96% Weight: 218 lbs 05/10/2018 Blood Pressure 1: 114/68 Code: 8480-6 BMI: 29.4 Code: 61797-3 Heart Rate 1: 92 bpm Height: 6' SpO2: 97% Weight: 217 lbs 03/27/2018 Blood Pressure 1: 126/74 Code: 8480-6 BMI: 30.1 Code: 92176-5 Heart Rate 1: 103 bpm Height: 6' SpO2: 96% Weight: 222 lbs 01/25/2018 Blood Pressure 1: 122/70 Code: 8480-6 Blood Pressure 2: 126/73 Code: 8480-6 Heart Rate 1: 63 bpm SpO2: 94% 01/24/2018 Blood Pressure 1: 110/72 Code: 8480-6 BMI: 29.7 Code: 73079-0 Heart Rate 1: 88 bpm Height: 6' SpO2: 95% Weight: 219 lbs 12/08/2017 Blood Pressure 1: 120/68 Code: 8480-6 BMI: 30.0 Code: 52699-5 Heart Rate 1: 91 bpm Height: 6' SpO2: 96% Temperature: 36.7 (C) / 98.1 (F) Weight: 221 lbs 10/27/2017 Blood Pressure 1: 124/76 Code: 8480-6 BMI: 30.1 Code: 83757-8 Heart Rate 1: 69 bpm Height: 6' SpO2: 95% Weight: 222 lbs 09/29/2017 Blood Pressure 1: 11866 Code: 8480-6 BMI: 29.9 Code: 92471-1 Heart Rate 1: 81 bpm Height: 6' SpO2: 95% Weight: 220 lbs 8 oz 09/01/2017 Blood Pressure 1: 122/82 Code: 8480-6 BMI: 29.6 Code: 36429-9 Heart Rate 1: 75 bpm Height: 6' SpO2: 97% Weight: 218 lbs 08/03/2017 Blood Pressure 1: 120/68 Code: 8480-6 Heart Rate 1: 68 bpm Height: 6' SpO2: 94% Waist Measure (cm): 97 cm 04/26/2017 Blood Pressure 1: 122/72 Code: 8480-6 BMI: 29.4 Code: 82967-7 Heart Rate 1: 85 bpm Height: 6' SpO2: 92% Weight: 217 lbs 01/25/2017 Blood Pressure 1: 118/78 Code: 8480-6 BMI: 29.4 Code: 77498-8 Heart Rate 1: 72 bpm Height: 6' SpO2: 94% Temperature: 36.9 (C) / 98.5 (F) Weight: 217 lbs 10/26/2016 Blood Pressure 1: 152/86 Code: 8480-6 BMI: 29.7 Code: 99359-8 Heart Rate 1: 58 bpm Height: 6' Weight: 219 lbs 09/27/2016 Blood Pressure 1: 138/80 Code: 8480-6 BMI: 29.4 Code: 86670-6 Heart Rate 1: 52 bpm Height: 6' SpO2: 98% Weight: 217 lbs 06/28/2016 Blood Pressure 1: 128/86 Code: 8480-6 BMI: 29.6 Code: 47452-6 Heart Rate 1: 69 bpm Height: 6' SpO2: 93% Weight: 218 lbs 04/27/2016 Blood Pressure 1: 118/82 Code: 8480-6 BMI: 29.3 Code: 95109-7 Heart Rate 1: 85 bpm Height: 6' SpO2: 98% Weight: 216 lbs 02/17/2016 Blood Pressure 1: 132/80 Code: 8480-6 BMI: 28.8 Code: 34521-1 Heart Rate 1: 94 bpm Height: 6' SpO2: 98% Weight: 212 lbs 01/20/2016 Blood Pressure 1: 120/70 Code: 8480-6 BMI: 29.7 Code: 62917-2 Heart Rate 1: 87 bpm Height: 6' SpO2: 92% Weight: 219 lbs 01/06/2016 Blood Pressure 1: 122/88 Code: 8480-6 BMI: 28.8 Code: 67678-0 Heart Rate 1: 83 bpm Height: 6' SpO2: 97% Weight: 212 lbs 12/16/2015 Blood Pressure 1: 98/62 Code: 8480-6 Heart Rate 1: 62 bpm Height: 6' SpO2: 90% Weight: 11/27/2015 Blood Pressure 1: 90/64 Code: 8480-6 Blood Pressure 1: 110/80 Code: 8480-6 Heart Rate 1: 91 bpm Height: 6' SpO2: 92% Weight: 07/30/2015 Blood Pressure 1: 112/82 Code: 8480-6 BMI: 30.5 Code: 61529-4 Heart Rate 1: 82 bpm Height: 6' SpO2: 92% Weight: 225 lbs 06/09/2015 Blood Pressure 1: 130/76 Code: 8480-6 BMI: 31.1 Code: 13655-5 Heart Rate 1: 65 bpm Height: 6' SpO2: 96% Weight: 229 lbs 04/29/2015 Blood Pressure 1: 118/78 Code: 8480-6 BMI: 30.7 Code: 47289-1 Heart Rate 1: 70 bpm Height: 6' Weight: 226 lbs 02/19/2015 Blood Pressure 1: 118/70 Code: 8480-6 BMI: 29.7 Code: 16501-0 Heart Rate 1: 68 bpm Height: 6' Weight: 219 lbs Functional Status No Functional Status data History of Present Illness Symptom Name Status Result Effective Date Notes Onset and Resolution ongoing 01/29/2019 None Onset [...] data Encounters Encounter Performer Location Codes Date ( [id number] EST. PATIENT, LEVEL IV Diagnosis: Essential (primary) hypertension[ICD10: I10] Diagnosis: Dizziness and giddiness[ICD10: R42] Diagnosis: Vertigo of central origin, right ear[ICD10: H81.41] Lesley Butcher MD, [facility] CPT-4: 00587 01/29/2019 [id number] EST. PATIENT, LEVEL III Diagnosis: Pleurodynia[ICD10: R07.81] Mady Butcher MD, [facility] CPT-4: 11984 2019 ([id number]) 25736 EST. PATIENT, LEVEL III Diagnosis: Other allergic rhinitis[ICD10: J30.89] Merline Butcher MD, [facility] CPT-4: 85608 01/08/2019 30048 EST. PATIENT, LEVEL IV Diagnosis: Other fatigue[ICD10: R53.83] Diagnosis: Obstructive sleep apnea (adult) (pediatric)[ICD10: G47.33] Diagnosis: Other malaise[ICD10: R53.81] Mady Butcher MD, [facility] CPT-4: 38584 12/25/2018 ([id number]) 44306 EST. PATIENT, LEVEL IV Diagnosis: Shortness of breath[ICD10: R06.02] Diagnosis: Other fatigue[ICD10: R53.83] Diagnosis: Obstructive sleep apnea (adult) (pediatric)[ICD10: G47.33] Diagnosis: Other malaise[ICD10: R53.81] Lesley Butcher MD, [facility] CPT-4: 12624 12/13/2018 ([id number]) 69664 EST. PATIENT, LEVEL IV Diagnosis: Shortness of breath[ICD10: R06.02] Diagnosis: Dizziness and giddiness[ICD10: R42] Diagnosis: Other fatigue[ICD10: R53.83] Diagnosis: Essential (primary) hypertension[ICD10: I10] Diagnosis: Muscle weakness (generalized)[ICD10: M62.81] Merline Butcher MD, [facility] CPT-4: 67828 11/27/2018 ([id number]) 00213 EST. PATIENT, LEVEL IV Diagnosis: Essential (primary) hypertension[ICD10: I10] Diagnosis: Vertigo of central origin, right ear[ICD10: H81.41] Diagnosis: Low back pain[ICD10: M54.5] Lesley Butcher MD [facility] CPT-4: 12874 09/26/2018 ([id number]) 78189 EST. PATIENT, LEVEL III Diagnosis: Dizziness and giddiness[ICD10: R42] Diagnosis: Vertigo of central origin, right ear[ICD10: H81.41] Diagnosis: Essential (primary) hypertension[ICD10: I10] Lesley Butcher MD [facility] CPT-4: 18546 07/26/2018 ([id number]) 73564 EST. PATIENT, LEVEL III Diagnosis: Essential (primary) hypertension[ICD10: I10] Lesley Butcher MD, [facility] CPT-4: 18246 06/12/2018 ([id number]) 02832 EST. PATIENT, LEVEL IV Diagnosis: Other iron deficiency anemias[ICD10: D50.8] Diagnosis: Weakness[ICD10: R53.1] Diagnosis: Diverticulosis of large intestine without perforation or abscess with bleeding[ICD10: K57.31] Lesley Butcher MD [facility] CPT-4: 02898 05/10/2018 ([id number]) 56736 EST. PATIENT, LEVEL IV Diagnosis: Essential (primary) hypertension[ICD10: I10] Diagnosis: Major depressive disorder, recurrent, mild[ICD10: F33.0] Diagnosis: Sensorineural hearing loss, bilateral[ICD10: H90.3] Lesley Butcher MD, [facility] CPT-4: 87964 03/27/2018 ([id number]) Miscellaneous no charge Diagnosis: Essential (primary) hypertension[ICD10: I10] Mady Butcher MD, [facility] CPT-4: 73109 01/25/2018 ([id number]) 87923 EST. PATIENT, LEVEL IV Diagnosis: Essential (primary) hypertension[ICD10: I10] Diagnosis: Sensorineural hearing loss, bilateral[ICD10: H90.3] Diagnosis: Mixed hyperlipidemia[ICD10: E78.2] Diagnosis: Major depressive disorder, recurrent, mild[ICD10: F33.0] Lesley Butcher MD, [facility] CPT-4: 29519 01/24/2018 44485 EST. PATIENT, LEVEL IV Diagnosis: Other malaise[ICD10: R53.81] Diagnosis: Fever, unspecified[ICD10: R50.9] Mady Butcher MD, [facility] CPT-4: 84193 12/08/2017 ([id number]) 64740 EST. PATIENT, LEVEL III Diagnosis: Essential (primary) hypertension[ICD10: I10] Lesley Butcher MD, [facility] CPT-4: 56852 10/27/2017 ([id number]) 21704 EST. PATIENT, LEVEL III Diagnosis: Benign prostatic hyperplasia with lower urinary tract symptoms[ICD10: N40.1] Diagnosis: Dysphagia, pharyngeal phase[ICD10: R13.13] Lesley Butcher MD, [facility] CPT-4: 10342 09/29/2017 ([id number]) 37821 EST. PATIENT, LEVEL IV Diagnosis: Essential (primary) hypertension[ICD10: I10] Diagnosis: Major depressive disorder, recurrent, mild[ICD10: F33.0] Diagnosis: Sensorineural hearing loss, bilateral[ICD10: H90.3] Lesley Butcher MD, [facility] CPT-4: 69396 09/01/2017 ([id number]) 34558 EST. PATIENT, LEVEL IV Diagnosis: Essential (primary) hypertension[ICD10: I10] Diagnosis: Major depressive disorder, recurrent, mild[ICD10: F33.0] Diagnosis: Mixed hyperlipidemia[ICD10: E78.2] Lesley Butcher MD, [facility] CPT- 4: 00543 04/26/2017 ([id number]) 71735 EST. PATIENT, LEVEL IV Diagnosis: Essential (primary) hypertension[ICD10: I10] Diagnosis: Major depressive disorder, recurrent, mild[ICD10: F33.0] Diagnosis: Urge incontinence[ICD10: N39.41] Lesley Butcher MD, [facility] CPT-4: 89156 01/25/2017 [id number]) 54966 EST. PATIENT, LEVEL IV Diagnosis: Essential (primary) hypertension[ICD10: I10] Diagnosis: Major depressive disorder, recurrent, mild[ICD10: F33.0] Diagnosis: Urge incontinence[ICD10: N39.41] Lesley Butcher MD, [facility] CPT-4: 38940 10/26/2016 [id number] 82084 EST. PATIENT, LEVEL III Diagnosis: Essential (primary) hypertension[ICD10: I10] Diagnosis: Major depressive disorder, recurrent, mild[ICD10: F33.0] Diagnosis: Urge incontinence[ICD10: N39.41] Lesley Butcher MD, [facility] CPT-4: 53744 09/27/2016 ([id number]) 61856 EST. PATIENT, LEVEL IV Diagnosis: Essential (primary) hypertension[ICD10: I10] Diagnosis: Encounter for immunization[ICD10: Z23] Diagnosis: Laceration without foreign body of left forearm, initial encounter[ICD10: S51.812A] Diagnosis: Laceration without foreign body of right forearm, initial encounter[ICD10: S51.811A] Diagnosis: Major depressive disorder, recurrent, mild[ICD10: F33.0] Lesely Butcher MD, [facility] CPT-4: 85797 06/28/2016 [id number]) 05906 EST. PATIENT, LEVEL IV Diagnosis: Essential (primary) hypertension[ICD10: I10] Diagnosis: Idiopathic gout, left ankle and foot[ICD10: M10.072] Diagnosis: Other iron deficiency anemias[ICD10: D50.8] Lesley Butcher MD, [facility] CPT-4: 92826 04/27/2016 30832 35498 EST. PATIENT, LEVEL V Diagnosis: Essential (primary) hypertension[ICD10: I10] Diagnosis: Major depressive disorder, recurrent, mild[ICD10: F33.0] Diagnosis: Idiopathic gout, left ankle and foot[ICD10: M10.072] Diagnosis: Mixed hyperlipidemia[ICD10: E78.2] Lesley Butcher MD, [facility] CPT- 4: 19452 02/17/2016 ([id number]) 21150 EST. 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 PATIENT, LEVEL IV Diagnosis: Idiopathic gout, left ankle and foot[ICD10: M10.072] Diagnosis: Essential (primary) hypertension[ICD10: I10] Diagnosis: Major depressive disorder, single episode, unspecified[ICD10: F32.9] Lesley Butcher MD, [facility] CPT-4: 96319 01/06/2016 54530 EST. PATIENT, LEVEL IV Diagnosis: Weakness[ICD10: R53.1] Diagnosis: Gout, unspecified[ICD10: M10.9] Diagnosis: Hypotension, unspecified[ICD10: I95.9] Lesley Butcher MD, [facility] CPT-4: 30652 12/16/2015 ([id number]) Patient admitted to the hospital from clinic (NO CHARGE) Diagnosis: Hypoxemia[ICD10: R09.02] Diagnosis: Weakness[ICD10: R53.1] Diagnosis: Dyspnea, unspecified[ICD10: R06.00] Mady Butcher MD, [facility] CPT- 4: 39344K 11/27/2015 ([id number]) 12407 EST. PATIENT, LEVEL III Diagnosis: Essential (primary) hypertension[ICD10: I10] Diagnosis: Gastro-esophageal reflux disease without esophagitis[ICD10: K21.9] Lesley Butcher MD, [facility] CPT-4: 99976 07/30/2015 ([id number]) 02966 EST. PATIENT, LEVEL III Diagnosis: ESSENTIAL HYPERTENSION[ICD9: 401.9] Merline Butcher MD, [facility] CPT-4: 90451 06/09/2015 ([id number]) 93772 EST. 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 They have a potential appt pending. 01/29/2019 Patient Education: Patient Medication Summary Completed 01/29/2019 Patient Education: Cholesterol Management Completed 01/29/2019 Visit Plan: Left rib pain - x-ray pending - The pt is to use prn antiinflammatories to manage acute pain. The patient is to call the office if the pain is worsening or does not improve. 2019 Appointment: Mady Dunne WPtel: [address] [place], [place] [address] (30 min) [facility] 2019 Patient Education: Patient Medication Summary Completed [...] allergy spray. 01/08/2019 Appointment: Merline Rose WPtel: [phone] (30 min) Complex 01/08/2019 Patient Education: Patient Medication Summary Completed 01/08/2019 Visit Plan: Fatigue, shortness of breath, dizziness - pt is to continue PT, pt is to follow up with Dr. Panda and Dr. Harvey and is to notify clinic with any changes in the current treatment plan. 12/25/2018 Appointment: Mady Dunne WPtel: [facility] (15 min) Moderate 12/25/2018 Patient Education: Patient [...] at 96% 12/13/2018 Appointment: Lesley Butcher WPtel: [facility] (15 min) Moderate 12/13/2018 Patient Education: Patient Medication Summary Completed 12/13/2018 Visit Plan: SJZ-flpmynu-pbvsvdcrr of breath -patient reports worsening of chronic symptoms -will check EKG and cardiac enzymes to evaluate for acute changes -recommend patient follow up with his molybdenum steamer operator, Dr Sharyn vu -patient, and daughter verbalized understanding of plan. Generalized weakness-discussed PT referral after cleared by cardiology -patient's will call us when she wants to have it set up HTN-no change but monitor at home 11/27/2018 Appointment: Merline Rose WPtel: [phone] (15 min) Moderate 11/27/2018 Patient Education: Patient [...] cryotherapy sessions. 09/26/2018 App[facility]ment[phone] [facility] ([facility] min) Moderate 09/26/2018 Patient Education: [...] care surrogate. 08/10/2018 [phone] [facility] [facility] - Annual Wellness Visit 08/10/2018 [...] home. 07/26/2018 Appointment: Lesley Butcher WPtel: [phone] [facility] (15 min) Moderate 07/26/2018 Patient Education: [...] dexamethasone. 06/12/2018 Appointment: Lesley Butcher WPtel: [phone] [facility] (15 min) Moderate 06/12/2018 Patient Education: Patient Medication Summary Completed 06/12/2018 Visit Plan: Diverticulosis with recent GI bleeding - improved - continue with supportive care, avoid foods which cause any abdominal pain - monitor symptoms - call if any pain or bleeding recurs. Anemia - check labs today. Weakness - continue with increasing of activity. 05/10/2018 Appointment: Lesley Butcher WPtel: [phone] [facility] (30 min) Complex 05/10/2018 Patient Education: [...] implant. 03/27/2018 Appointment: Lesley Butcher WPtel: [phone] [facility] (15 min) Moderate 03/27/2018 Patient Education: [...] to medications. 01/24/2018 Appointment: [facility] But[facility]el[facility] ([facility] min) Moderate 01/24/2018 Patient Education: Patient Medication Summary Completed 01/24/2018 Visit Plan: Influenza - pt started on tamiflu - pt to start on anti-inflammatories, tylenol and monitor symptoms. Pt to call if not improving. Pt to alert any close contacts as to illness. 12/08/2017 Appointment: [phone] (30 min) Complex 12/08/2017 Patient Education: [...] at home. 10/27/2017 Appointment: [facility] [phone] [facility] (15 min) Moderate 10/27/2017 Patient Education: Patient Medication Summary Completed 10/27/2017 Referral: External, Ordering Provider Referral Initiated 10/12/2017 Visit Plan: BPH - continue with dutasteride and flomax Dysphagia - referral to Dr. Kumar for EGD - question stricture - dysphagia intermittently - hx of stricture. 09/29/2017 Appointment: Lesley Butcher [facility]Ptel[facility] (15 min) Moderate 09/29/2017 Patient Education: Patient Medication Summary Completed 09/29/2017 Care Plan: Referral Order SNOMED-CT : [id number] Pending 09/29/2017 Visit Plan: Hypertension - well [...] recommended patient to have an evaluation at [facility] to see if he has potential for cochlear implant. 09/01/2017 Appointment: Lesley Butcher WPtel[facility] [place] (15 min) Moderate 09/01/2017 Patient Education: Patient Medication Summary Completed 09/01/2017 Care Plan: Referral Order SNOMED-CT : [id number] Pending 09/01/2017 Visit Plan: Medicare Exam - [...] care surrogate. 08/03/2017 Appointment: [facility]el[facility] [phone] [facility] [facility] - Welcome to Medicare visit [...] current medications. 04/26/2017 Appointment: Les[facility] But[facility]el[facility] [phone] [facility] (15 min) Moderate 04/26/2017 Patient Education: [...] 10mg daily. 01/25/2017 Appointment: [facility]el[facility] [phone] [facility] (30 min) Complex 01/25/2017 Patient Education: [...] [place] 10/26/2016 Appointment: Lesley Butcher WPtel: [facility] (15 min) Moderate 10/26/2016 Patient Education: Patient [...] retention occur. 09/27/2016 Appointment: Lesley Butcher WPtel: [facility] (15 min) Moderate 09/27/2016 Patient Education: Patient [...] shelli andrea 06/28/2016 Appointment: Lesley Butcher WPtel: [facility] (15 min) Moderate 06/28/2016 Patient Education: Patient [...] 1 month 02/17/2016 Appointment: Merline Rose WPtel: [address] [place] [phone] (30 min) Complex 02/17/2016 Patient Education: Patient [...] Summary Completed 12/16/2015 Appointment: Lesley Butcher WPtel: [phone] [facility] (15 min) Moderate 12/04/2015 Appointment: Lesley Butcher WPtel: [facility] (15 min) Moderate 12/02/2015 Visit Plan: [...] THE PHARMACY 07/30/2015 Appointment: Lesley Butcher WPtel: [facility] (15 min) Moderate 07/30/2015 Patient Education: [...] home. 04/29/2015 Appointment: [facility] But[facility]Ptel[facility] [phone] [facility] (15 min) Moderate 04/29/2015 Patient Education: [...] planned injection in back and call the compliance testing analyst about a biopsy of the lesion on [...] ILLNESS. CHECK CARDIAC ENYZMES AND EKG . WBJ-wmbsoub-vnhidfmyy of breath -patient reports worsening of chronic symptoms -will check EKG and cardiac enzymes to evaluate for acute changes -recommend patient follow up with his molybdenum steamer operator, Dr Stokes -patient, and daughter verbalized understanding [...] recommended patient to have an evaluation at 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 They have a potential appt pending.
--- OUTSIDE RECORDS SUMMARY | 2019-03-23 19:40 | XMS REPORT | CCD ---
Author Author [facility] Organization [facility] Address [address] [place] [address] Phone Care Team Providers Care Ethylene Plant Helper Name Role Phone PP Unavailable CCM Unavailable Summary Purpose Interface Exchange Insurance Providers Payer name Policy type / Coverage type Covered green party ID Effective Begin Date Effective End Date WPS Medicare Part B Medicare Part B [id number] 2018 Unknown [facility] Medicare Part B [id number] Unknown Family history Father Diagnosis Age At Onset Hypertension Unknown Coronary Artery Disease Unknown Sister Diagnosis Age At Onset Heart disease Unknown Mother Diagnosis Age At Onset Coronary Artery Disease Unknown Hypertension Unknown Social History Social History Element Codes Description Effective Dates Marital status Unknown 02/19/2015 Number of children Unknown 2 02/19/2015 Employment Unknown Retired 02/19/[address]: 153889649 Has never smoked or chewed tobacco 02/19/2015 Alcohol history Unknown occasionally drinks alcohol 02/19/2015 Allergies, Adverse Reactions, Alerts Substance Reaction Codes Entered Date Inactivated Date Status bactrim RxNorm: 125300 12/19/2015 No Inactive Date Active ciprofloxacin RxNorm: 88326 02/18/2015 No Inactive Date Active Past Medical History Illness Codes Condition Status Onset Date Resolved Date Pleurodynia ICD-9: 786.50 ICD-10: R07.81 Active 2019 Unknown Other allergic rhinitis ICD-9: 477.8 ICD-10: J30.89 Active 01/08/2019 Unknown Obstructive sleep apnea (adult) (pediatric) ICD-9: 327.23 ICD-10: G47.33 Active 12/13/2018 Unknown Other fatigue ICD-9: 780.79 ICD-10: R53.83 Active 11/27/2018 Unknown Other malaise ICD-9: 780.79 ICD-10: R53.81 Active 12/08/2017 Unknown Shortness of breath ICD- 9: 786.05 ICD-10: R06.02 Active 11/27/2018 Unknown Dizziness [...] ICD-10: H90.3 Active 09/01/2017 Unknown Mixed hyperlipidemia ICD- 9: 272.2 ICD-10: E78.2 Active 02/16/2016 Unknown Fever, unspecified ICD- 9: 780.60 ICD-10: [...] ICD-10: I95.9 Active 12/15/2015 Unknown Dyspnea, unspecified ICD- 9: [...] Problems Condition Codes Effective Dates Condition Status Pleurodynia ICD-9: 786.50 ICD-10: R07.81 2019 Active Other allergic rhinitis ICD-9: 477.8 ICD-10: J30.89 01/08/2019 Active Obstructive sleep apnea (adult) (pediatric) ICD-9: 327.23 ICD-10: G47.33 12/13/2018 Active Other fatigue ICD-9: 780.79 ICD-10: R53.83 11/27/2018 Active Other malaise ICD-9: 780.79 ICD-10: R53.81 12/08/2017 Active Shortness of breath ICD- 9: 786.05 ICD-10: R06.02 11/27/2018 Active Dizziness and [...] 389.11 ICD-10: H90.3 09/01/2017 Active Mixed hyperlipidemia ICD- 9: 272.2 ICD-10: E78.2 02/16/2016 Active Fever, unspecified ICD- 9: 780.60 ICD-10: [...] 458.9 ICD-10: I95.9 12/15/2015 Active Dyspnea, unspecified ICD- 9: 786.09 [...] Fill Instructions Requip 0.25 mg tablet RxNorm: 994260 1 Tablet(s) PO QHS 2019 02/13/2019 Active pantoprazole 40 mg tablet,delayed release RxNorm: 174693 TAKE ONE TABLET BY MOUTH ONCE DAILY AT BEDTIME 11/27/2018 No Stop Date Active atorvastatin 40 mg tablet RxNorm: 823013 1 Tablet(s) PO daily 09/26/2018 10/25/2018 Inactive dexamethasone 0.5 mg tablet RxNorm: 741148 TAKE 1 TABLET BY MOUTH ONCE DAILY 08/29/2018 No Stop Date Active clonazepam 1 mg tablet RxNorm: 838133 1/2 Tablet(s) PO QHS 08/24/2018 12/21/2018 Inactive allopurinol 100 mg tablet RxNorm: 790993 TAKE ONE TABLET BY MOUTH ONCE DAILY 08/03/2018 No Stop Date Active citalopram 40 mg tablet RxNorm: 047056 TAKE ONE TABLET BY MOUTH ONCE DAILY 06/13/2018 No Stop Date Active Kenalog 40 mg/mL suspension for injection RxNorm: 5443712 Milliliter(s) Inj 06/12/2018 06/12/2018 Inactive clonazepam 1 mg tablet RxNorm: 681153 1 Tablet(s) PO QHS 06/12/2018 08/23/2018 Inactive losartan 50 mg tablet RxNorm: 623909 1/2 Tablet(s) PO daily 05/24/2018 No Stop Date Active clonazepam 1 mg tablet RxNorm: 855897 1/2 Tablet(s) TAKE ONE TABLET BY MOUTH ONCE DAILY AT BEDTIME AND ONE TABLET THREE TIMES DAILY NEEDED 05/24/2018 06/11/2018 Inactive citalopram 40 mg tablet RxNorm: 949555 1/2 Tablet(s) TAKE ONE TABLET BY MOUTH ONCE DAILY 05/24/2018 09/25/2018 Inactive spironolactone 25 mg tablet RxNorm: 570676 TAKE ONE TABLET BY MOUTH ONCE DAILY 05/22/2018 No Stop Date Active dexamethasone 0.5 mg tablet RxNorm: 042222 TAKE ONE TABLET BY MOUTH ONCE DAILY 02/21/2018 08/28/2018 Inactive Flomax 0.4 mg capsule RxNorm: 251753 TAKE ONE CAPSULE BY MOUTH ONCE DAILY IN THE EVENING 12/19/2017 No Stop Date Active Tamiflu 75 mg capsule RxNorm: 855471 1 Capsule(s) PO BID 12/08/2017 12/12/2017 Inactive clonazepam 1 mg tablet RxNorm: 431906 Tablet(s) TAKE ONE TABLET BY MOUTH ONCE DAILY AT BEDTIME AND ONE TABLET THREE TIMES DAILY NEEDED 11/28/2017 01/26/2018 Inactive pantoprazole 40 mg tablet,delayed release RxNorm: 679786 TAKE ONE TABLET BY MOUTH ONCE DAILY AT BEDTIME 11/07/2017 11/26/2018 Inactive allopurinol 100 mg tablet RxNorm: 367274 TAKE ONE TABLET BY MOUTH ONCE DAILY 10/03/2017 08/02/2018 Inactive pantoprazole 40 mg tablet,delayed release RxNorm: 273162 1 Tablet(s) PO BID 09/01/2017 05/28/2018 Inactive Vitamin B-6 100 mg tablet RxNorm: 093914 1 Tablet(s) PO daily 09/01/2017 06/11/2018 Inactive dutasteride 0.5 mg capsule RxNorm: 356357 1 Capsule(s) PO QPM 09/01/2017 06/11/2018 Inactive spironolactone 25 mg tablet RxNorm: 187605 TAKE ONE TABLET BY MOUTH ONCE DAILY 08/15/2017 05/21/2018 Inactive citalopram 40 mg tablet RxNorm: 363419 TAKE ONE TABLET BY MOUTH ONCE DAILY 08/08/2017 05/04/2018 Inactive dexamethasone 0.5 mg tablet RxNorm: 712884 TAKE ONE TABLET BY MOUTH ONCE DAILY 08/08/2017 11/05/2017 Inactive clonazepam 1 mg tablet RxNorm: 068095 TAKE ONE TABLET BY MOUTH ONCE DAILY AT BEDTIME AND ONE THREE TIMES DAILY NEEDED 05/12/2017 08/08/2017 Inactive clonazepam 1 mg tablet RxNorm: 775751 1 Tablet(s) PO QHS AND 1 TAB PO TID PRN 05/12/2017 05/13/2017 Inactive oxybutynin chloride ER 10 mg tablet,extended release 24 hr RxNorm: 409297 1 Tablet(s) PO daily 04/29/2017 08/02/2017 Inactive dexamethasone 0.5 mg tablet RxNorm: 832759 TAKE ONE TABLET BY MOUTH ONCE DAILY 02/14/2017 04/14/2017 Inactive Flomax 0.4 mg capsule RxNorm: 185417 TAKE ONE CAPSULE BY MOUTH ONCE DAILY IN THE EVENING 02/14/2017 11/10/2017 Inactive pantoprazole 40 mg tablet,delayed release RxNorm: 540492 TAKE ONE TABLET BY MOUTH ONCE DAILY AT BEDTIME 02/14/2017 08/31/2017 Inactive oxybutynin chloride ER 10 mg tablet,extended release 24 hr RxNorm: 212037 1 Tablet(s) PO daily 01/25/2017 04/24/2017 Inactive dexamethasone 0.5 mg tablet RxNorm: 406369 TAKE ONE TABLET BY MOUTH ONCE DAILY 11/10/2016 12/09/2016 Inactive oxybutynin chloride ER 5 mg tablet,extended release 24 hr RxNorm: 915775 1 Tablet(s) PO daily 10/28/2016 10/27/2016 Inactive oxybutynin chloride ER 5 mg tablet,extended release 24 hr RxNorm: 617090 1 Tablet(s) PO daily 10/28/2016 01/24/2017 Inactive Detrol LA 2 mg capsule,extended release RxNorm: 724288 1 Capsule(s) PO QPM 10/26/2016 10/27/2016 Inactive clonazepam 1 mg tablet RxNorm: 016722 1 Tablet(s) PO QHS AND 1 TAB PO TID PRN 10/20/2016 04/17/2017 Inactive dexamethasone 0.5 mg tablet RxNorm: 920995 TAKE ONE TABLET BY MOUTH ONCE DAILY 10/06/2016 11/04/2016 Inactive allopurinol 100 mg tablet RxNorm: 741645 1 Tablet(s) PO daily 09/30/2016 09/24/2017 Inactive Vesicare 5 mg tablet RxNorm: 743081 1 Tablet(s) PO QPM 09/27/2016 12/12/2016 Inactive spironolactone 25 mg tablet RxNorm: 447774 1 Tablet(s) PO daily 08/06/2016 07/31/2017 Inactive citalopram 40 mg tablet RxNorm: 976875 1 Tablet(s) PO daily 06/28/2016 06/22/2017 Inactive Plavix 75 mg tablet RxNorm: 726127 1 Tablet(s) PO daily 04/27/2016 No Stop Date Active iron ER 159 mg (45 mg iron) tablet,extended release RxNorm: 883331 1 Tablet(s) PO daily 04/27/2016 08/31/2017 Inactive dexamethasone 0.5 mg tablet RxNorm: 891066 1/2 Tablet(s) PO daily 04/27/2016 02/20/2018 Inactive allopurinol 100 mg tablet RxNorm: 093063 1 Tablet(s) PO daily 04/27/2016 09/29/2016 Inactive clonazepam 1 mg tablet RxNorm: 740311 1 Tablet(s) PO QHS and 1 tab po TID prn 04/14/2016 10/07/2016 Inactive allopurinol 100 mg tablet RxNorm: 504135 1 Tablet(s) PO daily 02/17/2016 04/26/2016 Inactive citalopram 20 mg tablet RxNorm: 457310 1 Tablet(s) PO daily 01/20/2016 06/27/2016 Inactive Flomax 0.4 mg capsule RxNorm: 416500 1 Capsule(s) PO QPM 01/20/2016 01/13/2017 Inactive [SAVINGS FOR NON-COVERED DRUGS -- BIN:[id number], PCN: ASPROD1, Group: XXXXX, ID# [id number], Questions: . THIS IS NOT INSURANCE.] pantoprazole 40 mg tablet,delayed release RxNorm: 046576 1 Tablet(s) PO QHS 01/20/2016 01/13/2017 Inactive Colcrys 0.6 mg tablet RxNorm: 175208 1 Tablet(s) PO daily 01/06/2016 03/05/2016 Inactive take daily x 7 days then daily as needed for gout flair colchicine 0.6 mg tablet RxNorm: 210341 1 Tablet(s) PO BID 12/30/2015 01/01/2016 Inactive doxycycline hyclate 100 mg tablet RxNorm: 208589 1 Tablet(s) PO BID 12/19/2015 12/28/2015 Inactive doxycycline hyclate 100 mg tablet RxNorm: 883893 1 Tablet(s) PO BID 12/19/2015 12/18/2015 Inactive allopurinol 100 mg tablet RxNorm: 327058 1 Tablet(s) PO daily 12/16/2015 02/16/2016 Inactive colchicine 0.6 mg tablet RxNorm: 035229 Tablet(s) PO 1.2 mg PO in the morning and 0.6 mg at night for 2 days. 12/16/2015 12/29/2015 Inactive allopurinol 100 mg tablet RxNorm: 991521 1 Tablet(s) PO daily 12/16/2015 12/15/2015 Inactive Protonix 40 mg tablet,delayed release RxNorm: 001939 1 Tablet(s) PO daily 12/16/2015 01/14/2016 Inactive Bactrim DS 800 mg-160 mg tablet RxNorm: 637381 1 Tablet(s) PO BID 12/16/2015 12/18/2015 Inactive colchicine 0.6 mg tablet RxNorm: 260590 Tablet(s) PO 1.2 mg for the first dose and 0.6 mg an hour after 12/15/2015 12/15/2015 Inactive dexamethasone 0.5 mg tablet RxNorm: 991937 1 Tablet(s) PO 12/12/2015 02/09/2016 Inactive Plavix 75 mg tablet RxNorm: 131734 1 Tablet(s) PO every other day 12/12/2015 04/09/2016 Inactive nitroglycerin 0.4 mg sublingual tablet RxNorm: 087397 1 Tablet(s) SL x3 in 15 min as needed 12/12/2015 04/26/2016 Inactive clonazepam 1 mg tablet RxNorm: 804752 1 Tablet(s) PO QHS and 1 tab po TID prn 12/11/2015 12/03/2016 Inactive [place] 5 mg-325 mg tablet RxNorm: 439403 1-2 Tablet(s) PO Q6 as needed 12/11/2015 09/26/2016 Inactive clonazepam 1 mg tablet RxNorm: 265087 1 Tablet(s) PO QHS and 1 tab po TID prn 12/04/2015 12/10/2015 Inactive Flomax 0.4 mg capsule RxNorm: 741674 1 Capsule(s) PO QPM 09/22/2015 01/19/2016 Inactive [SAVINGS FOR NON-COVERED DRUGS -- BIN:[id number], PCN: ASPROD1, Group: XXXXX, ID# [id number], Questions: . THIS IS NOT INSURANCE.] Flomax 0.4 mg capsule RxNorm: 580967 1 Capsule(s) PO QPM 09/16/2015 09/21/2015 Inactive [SAVINGS FOR NON-COVERED DRUGS -- BIN:584332, PCN: ASPROD1, Group: XXXXX, ID# XXXXXXX, Questions: . THIS IS NOT INSURANCE.] clonazepam 1 mg tablet RxNorm: 849363 1 Tablet(s) PO QHS 08/29/2015 12/03/2015 Inactive coenzyme Q10 10 mg tablet RxNorm: 762071 1 Tablet(s) PO daily 07/30/2015 01/05/2016 Inactive spironolactone 25 mg tablet RxNorm: 048783 1 Tablet(s) PO daily 07/28/2015 07/21/2016 Inactive spironolactone 25 mg tablet RxNorm: 591263 1 Tablet(s) PO daily 07/22/2015 07/27/2015 Inactive clonazepam 1 mg tablet RxNorm: 757923 1 Tablet(s) PO QHS 05/23/2015 08/28/2015 Inactive losartan 25 mg tablet RxNorm: 557406 1 Tablet(s) PO daily 02/19/2015 03/20/2015 Inactive Flonase Allergy Relief 50 mcg/actuation nasal spray,suspension RxNorm: 1 [place] NASAL BID 02/19/2015 04/26/2016 Inactive [SAVINGS FOR NON-COVERED DRUGS -- BIN:[id number], PCN: ASPROD1, Group: XXXXX, ID# XXXXXXX, Questions: . THIS IS NOT INSURANCE.] Flomax 0.4 mg capsule RxNorm: 097127 1 Capsule(s) PO QPM 02/19/2015 09/15/2015 Inactive [SAVINGS FOR NON-COVERED DRUGS -- BIN:745453, PCN: ASPROD1, Group: XXXXX, ID# XXXXXXX, Questions: . THIS IS NOT INSURANCE.] citalopram 20 mg tablet RxNorm: 708640 1 Tablet(s) PO daily 02/19/2015 03/20/2015 Inactive atenolol 25 mg tablet RxNorm: 474004 1 Tablet(s) PO daily 02/19/2015 03/20/2015 Inactive Lipitor 20 mg tablet RxNorm: 368104 1 Tablet(s) PO daily 02/19/2015 03/20/2015 Inactive vitamin B complex oral RxNorm: 53566 oral No Start Date Active Lipitor oral RxNorm: 19218 oral No Start Date Active Aleve 220 mg tablet RxNorm: 372880 Tablet(s) PO as needed No Start Date Active Vitamin D3 1,000 unit capsule RxNorm: 720882 2 Capsule(s) PO daily No Start Date Active Centrum Complete oral RxNorm: 33871 oral No Start Date Active glucosamine HCl 1,500 mg tablet RxNorm: 421050 1 Tablet(s) with 1200 mg chrondroitin PO daily No Start Date 08/01/2018 Inactive Claritin-D 24 Hour oral RxNorm: 855282 oral No Start Date 01/07/2019 Inactive ranitidine 150 mg tablet RxNorm: 039994 1 Tablet(s) PO TID No Start Date 12/11/2015 Inactive [place] 5 mg-325 mg tablet RxNorm: 758710 1-2 Tablet(s) PO Q6 as needed No Start Date 12/10/2015 Inactive krill oil oral RxNorm: 48251 oral No Start Date 08/07/2018 Inactive Vitamin B-6 100 mg tablet RxNorm: 027853 1 Tablet(s) PO TID No Start Date 08/31/2017 Inactive spironolactone 25 mg tablet RxNorm: 992932 1 Tablet(s) PO daily No Start Date 07/21/2015 Inactive Vitamin D3 oral RxNorm: 2418 oral No Start Date 02/17/2016 Inactive clonazepam 1 mg tablet RxNorm: 128818 1 Tablet(s) PO daily No Start Date 05/22/2015 Inactive Glucosamine oral RxNorm: 4845 oral No Start Date 04/26/2016 Inactive cetirizine 10 mg tablet RxNorm: 1938901 1 Tablet(s) PO daily No Start Date 01/07/2019 Inactive losartan 50 mg tablet RxNorm: 460634 1 Tablet(s) PO daily No Start Date 05/23/2018 Inactive Plavix 75 mg tablet RxNorm: 537543 1 Tablet(s) PO every other day No Start Date 12/11/2015 Inactive Osteo Bi-Flex oral RxNorm: 0668547 oral No Start Date 09/01/2017 Inactive iron ER 159 mg (45 mg iron) tablet,extended release RxNorm: 327905 1 Tablet(s) PO BID No Start Date 04/26/2016 Inactive amlodipine 5 mg tablet RxNorm: 390014 1 Tablet(s) PO daily No Start Date 01/05/2016 Inactive aspirin 81 mg tablet,delayed release RxNorm: 940235 1 Tablet(s) PO daily No Start Date 05/09/2018 Inactive dexamethasone 0.5 mg tablet RxNorm: 520099 1 Tablet(s) PO No Start Date 12/11/2015 Inactive Vitamin B-12 1,000 mcg tablet RxNorm: 786459 6 Tablet(s) PO every other day No Start Date 06/11/2018 Inactive colchicine 0.6 mg tablet RxNorm: 886580 Tablet(s) PO 1.2 mg for the first dose and 0.6 mg an hour after No Start Date 12/14/2015 Inactive nitroglycerin 0.4 mg sublingual tablet RxNorm: 180547 1 Tablet(s) SL x3 in 15 min as needed No Start Date 12/11/2015 Inactive Fish Oil 1,000 mg capsule RxNorm: 1 Capsule(s) PO daily No Start Date 04/26/2016 Inactive Ecotrin Low Strength 81 mg tablet,enteric coated RxNorm: 0405736 1 Tablet(s) PO daily No Start Date 09/27/2016 Inactive Medication Administered Medication Codes Instructions Start Date Status Kenalog 40 mg/mL suspension for injection RxNorm: 7494661 Milliliter 06/12/2018 No longer Active Immunizations Vaccine Codes Date Status Influenza CVX: 141 07/05/2018 completed Influenza CVX: 141 08/01/2017 completed Pneumococcal CVX: 33 08/01/2017 completed Influenza CVX: 141 06/28/2016 completed Tetanus, Diptheria, Pertussis CVX: 113 06/28/2016 completed Tetanus/Diptheria CVX: 113 06/28/2016 completed Pneumococcal Unknown 08/04/2015 completed Influenza CVX: 141 04/16/2014 completed Pneumococcal CVX: 33 05/15/2008 completed Assessments Condition Codes Effective Dates Pleurodynia ICD-10: R07.81 ICD-9: 786.50 2019 Other [...] Visit Reason For Visit Effective Dates Notes flank pain 2019 fatigue 01/08/2019 fatigue 12/25/2018 [...] 30.4 pg 10/20/2018 Cbc With Differential Ord2 Noble% 5.7 % 10/20/2018 Cbc With Differential Ord2 [...] 1.69 K/ul 10/20/2018 Cbc With Differential Ord2 Noble ABS# 0.6 K/ul 10/20/2018 Cbc With Differential Ord2 Eos ABS# 0.0 K/ul 10/20/2018 Cbc With Differential Ord2 Baso ABS# 0.0 K/ul 10/20/2018 Comp Metabolic Lxv081 NA 140 mEq/L 10/20/2018 Comp Metabolic Auy501 K 4.0 mEq/L 10/20/2018 Comp Metabolic Jmp855 CL 104 mEq/L 10/20/2018 Comp Metabolic Irc528 CO2 28.0 mEq/L 10/20/2018 Comp Metabolic Arr306 ANION GAP 12 10/20/2018 Comp Metabolic Mzf814 GLUCOSE 113 mg/dL 10/20/2018 Comp Metabolic Tcj967 Creat 1.0 mg/dL 10/20/2018 Comp Metabolic Sif710 eGFR 75 ml/min/1.73m2 10/20/2018 Comp Metabolic Ijc298 BUN 18 mg/dL 10/20/2018 Comp Metabolic Aby649 B/C Ratio 17.8 Ratio 10/20/2018 Comp Metabolic Hxt347 CALCIUM 9.8 mg/dL 10/20/2018 Comp Metabolic Cya520 ALK PHOS 70 U/L 10/20/2018 Comp Metabolic Aox056 AST(SGOT) 15 U/L 10/20/2018 Comp Metabolic Dnn603 ALT(SGPT) 18 U/L 10/20/2018 Comp Metabolic Dek602 BILI T 1.1 mg/dL 10/20/2018 Comp Metabolic Gno801 ALBUMIN 4.4 g/dL 10/20/2018 Comp Metabolic Jtl110 TPRO 6.9 g/dL 10/20/2018 Comp Metabolic Hgc297 GLOB 2.5 g/dL 10/20/2018 Comp Metabolic Fpx641 A/G Ratio 1.7 Ratio 10/20/2018 Comp Metabolic Yoe622 Osmo 282 mOsmo 10/20/2018 Urinalysis Ord28 U-Color [...] 29.0 pg 07/14/2018 Cbc With Differential Ord2 Noble% 7.5 % 07/14/2018 Cbc With Differential Ord2 [...] 1.92 K/ul 07/14/2018 Cbc With Differential Ord2 [place] ABS# 0.4 K/ul 07/14/2018 Cbc With Differential Ord2 Eos ABS# 0.2 K/ul 07/14/2018 Cbc With Differential Ord2 Baso ABS# 0.0 K/ul 07/14/2018 Renal Vwh183 NA 140 mEq/L 07/14/2018 Renal Thw281 K 4.2 mEq/L 07/14/2018 Renal Jcy263 CL 103 mEq/L 07/14/2018 Renal Hfe197 CO2 29.0 mEq/L 07/14/2018 Renal Uwa190 ANION GAP 12 07/14/2018 Renal Liv932 Osmo 280 mOsmo 07/14/2018 Renal Msx187 GLUCOSE 95 mg/dL 07/14/2018 Renal Gwe374 BUN 15 mg/dL 07/14/2018 Renal Xel492 Creat 1.2 mg/dL 07/14/2018 Renal Gmc998 eGFR 64 ml/min/1.73m2 07/14/2018 Renal Yud438 B/C Ratio 12.8 Ratio 07/14/2018 Renal Jth954 CALCIUM 9.6 mg/dL 07/14/2018 Renal Zot502 PHOS 3.2 mg/dL 07/14/2018 Renal Jel584 ALBUMIN 4.4 g/dL 07/14/2018 Magnesium Ord90 Mag [...] 29.7 pg 06/08/2018 Cbc With Differential Ord2 Noble% 8.7 % 06/08/2018 Cbc With Differential Ord2 [...] 2.14 K/ul 06/08/2018 Cbc With Differential Ord2 [place] ABS# 0.5 K/ul 06/08/2018 Cbc With Differential Ord2 Eos ABS# 0.2 K/ul 06/08/2018 Cbc With Differential Ord2 Baso ABS# 0.0 K/ul 06/08/2018 Comp Metabolic Kaq495 NA 139 mEq/L 06/08/2018 Comp Metabolic Hyw663 K 4.6 mEq/L 06/08/2018 Comp Metabolic Nei866 CL 105 mEq/L 06/08/2018 Comp Metabolic Jlc226 CO2 26.0 mEq/L 06/08/2018 Comp Metabolic Zci184 ANION GAP 13 06/08/2018 Comp Metabolic Dwm371 GLUCOSE 95 mg/dL 06/08/2018 Comp Metabolic Xhn011 Creat 1.2 mg/dL 06/08/2018 Comp Metabolic Dyb606 eGFR 59 ml/min/1.73m2 06/08/2018 Comp Metabolic Olq885 BUN 12 mg/dL 06/08/2018 Comp Metabolic Tuv248 B/C Ratio 9.7 Ratio 06/08/2018 Comp Metabolic Tot200 CALCIUM 9.9 mg/dL 06/08/2018 Comp Metabolic Ubq513 ALK PHOS 70 U/L 06/08/2018 Comp Metabolic Uzv714 AST(SGOT) 21 U/L 06/08/2018 Comp Metabolic Gcg628 ALT(SGPT) 20 U/L 06/08/2018 Comp Metabolic Vfm546 BILI T 1.0 mg/dL 06/08/2018 Comp Metabolic Ajv675 ALBUMIN 4.5 g/dL 06/08/2018 Comp Metabolic Aiv964 TPRO 7.2 g/dL 06/08/2018 Comp Metabolic Exj715 GLOB 2.8 g/dL 06/08/2018 Comp Metabolic Yim076 A/G Ratio 1.6 Ratio 06/08/2018 Comp Metabolic Dei438 Osmo 277 mOsmo 06/08/2018 Cbc With Differential [...] 30.6 pg 05/10/2018 Cbc With Differential Ord2 Noble% 6.5 % 05/10/2018 Cbc With Differential Ord2 [...] 1.94 K/ul 05/10/2018 Cbc With Differential Ord2 [place] ABS# 0.4 K/ul 05/10/2018 Cbc With Differential [...] Ord30 C/HDL 4.2 Ratio 01/26/2018 Comp Metabolic Btn295 NA 138 mEq/L 01/26/2018 Comp Metabolic Jls112 K 4.2 mEq/L 01/26/2018 Comp Metabolic Rik908 CL 105 mEq/L 01/26/2018 Comp Metabolic Jfm609 CO2 23.0 mEq/L 01/26/2018 Comp Metabolic Hsw503 ANION GAP 14 01/26/2018 Comp Metabolic Byq720 GLUCOSE 89 mg/dL 01/26/2018 Comp Metabolic Fum985 Creat 1.1 mg/dL 01/26/2018 Comp Metabolic Nwt294 eGFR 70 ml/min/1.73m2 01/26/2018 Comp Metabolic Wpt084 BUN 18 mg/dL 01/26/2018 Comp Metabolic Opd510 B/C Ratio 16.8 Ratio 01/26/2018 Comp Metabolic Orc857 CALCIUM 9.2 mg/dL 01/26/2018 Comp Metabolic Ooo870 ALK PHOS 67 U/L 01/26/2018 Comp Metabolic Tfi585 AST(SGOT) 31 U/L 01/26/2018 Comp Metabolic Pff941 ALT(SGPT) 23 U/L 01/26/2018 Comp Metabolic Who258 BILI T 1.7 mg/dL 01/26/2018 Comp Metabolic Mbq196 ALBUMIN 3.9 g/dL 01/26/2018 Comp Metabolic Egu105 TPRO 6.7 g/dL 01/26/2018 Comp Metabolic Ofn589 GLOB 2.8 g/dL 01/26/2018 Comp Metabolic Vgz059 A/G Ratio 1.4 Ratio 01/26/2018 Comp Metabolic Rsx962 Osmo 277 mOsmo 01/26/2018 Cbc With Differential [...] 30.7 pg 01/26/2018 Cbc With Differential Ord2 Noble% 7.1 % 01/26/2018 Cbc With Differential Ord2 [...] 2.40 K/ul 01/26/2018 Cbc With Differential Ord2 [place] ABS# 0.5 K/ul 01/26/2018 Cbc With Differential Ord2 Eos ABS# 0.2 K/ul 01/26/2018 Cbc With Differential Ord2 Baso ABS# 0.0 K/ul 01/26/2018 Tsh Ord6 TSH (3rd IS) 1.81 uIU/mL 01/26/2018 Testosterone Tnm075 Testo 370.3 ng/dL 01/26/2018 C A/B FLU [id number] Influenza A Scr Negative 12/08/2017 C A/B FLU 5048694 Influenza B Scr Negative 12/08/2017 C A/B FLU [id number] Influenza Intrp B AG:PRID:PT:NOSE:NOM:IF See Footnote 12/08/2017 [...] 30.8 pg 04/11/2017 Cbc With Differential Ord2 Noble% 8.1 % 04/11/2017 Cbc With Differential Ord2 [...] 1.91 K/ul 04/11/2017 Cbc With Differential Ord2 [place] ABS# 0.5 K/ul 04/11/2017 Cbc With Differential Ord2 Eos ABS# 0.2 K/ul 04/11/2017 Cbc With Differential Ord2 Baso ABS# 0.0 K/ul 04/11/2017 Comp Metabolic Jsk616 NA 140 mEq/L 04/11/2017 Comp Metabolic Jfm867 K 4.1 mEq/L 04/11/2017 Comp Metabolic Zzo684 CL 105 mEq/L 04/11/2017 Comp Metabolic Tld502 CO2 26.0 mEq/L 04/11/2017 Comp Metabolic Qwm866 ANION GAP 13 04/11/2017 Comp Metabolic Iqi201 GLUCOSE 88 mg/dL 04/11/2017 Comp Metabolic Rrg787 Creat 1.1 mg/dL 04/11/2017 Comp Metabolic Gbb617 eGFR 66 ml/min/1.73m2 04/11/2017 Comp Metabolic Vju161 BUN 18 mg/dL 04/11/2017 Comp Metabolic Uaz735 B/C Ratio 15.9 Ratio 04/11/2017 Comp Metabolic Gep745 CALCIUM 9.0 mg/dL 04/11/2017 Comp Metabolic Bmn203 ALK PHOS 72 U/L 04/11/2017 Comp Metabolic Lnr418 AST(SGOT) 22 U/L 04/11/2017 Comp Metabolic Ufh461 ALT(SGPT) 26 U/L 04/11/2017 Comp Metabolic Jlt067 BILI T 1.0 mg/dL 04/11/2017 Comp Metabolic Yvv216 ALBUMIN 4.0 g/dL 04/11/2017 Comp Metabolic Bfa040 TPRO 6.4 g/dL 04/11/2017 Comp Metabolic Fzf630 GLOB 2.4 g/dL 04/11/2017 Comp Metabolic Fwp787 A/G Ratio 1.6 Ratio 04/11/2017 Comp Metabolic Qcn199 Osmo 281 mOsmo 04/11/2017 Vitamin D 25 Oh Cqb1689 VITAMIN D, 25 HYDROXY 65.52 ng/mL 05/19/2016 [...] 28.5 pg 05/18/2016 Cbc With Differential Ord2 Noble% 7.2 % 05/18/2016 Cbc With Differential Ord2 [...] 1.80 K/ul 05/18/2016 Cbc With Differential Ord2 [place] ABS# 0.4 K/ul 05/18/2016 Cbc With Differential Ord2 Eos ABS# 0.2 K/ul 05/18/2016 Cbc With Differential Ord2 Baso ABS# 0.0 K/ul 05/18/2016 Magnesium Ord90 Mag 2.0 mg/dL 05/18/2016 Renal Gpd445 NA 139 mEq/L 05/18/2016 Renal Qjg422 K 4.0 mEq/L 05/18/2016 Renal Bsu469 CL 104 mEq/L 05/18/2016 Renal Xic120 CO2 27.0 mEq/L 05/18/2016 Renal Abt257 ANION GAP 12 05/18/2016 Renal Xmm487 Osmo 279 mOsmo 05/18/2016 Renal Ctp404 GLUCOSE 91 mg/dL 05/18/2016 Renal Wqs565 BUN 18 mg/dL 05/18/2016 Renal Gul166 Creat 1.3 mg/dL 05/18/2016 Renal Yks080 eGFR 59 ml/min/1.73m2 05/18/2016 Renal Jgr774 B/C Ratio 14.3 Ratio 05/18/2016 Renal Tzo741 CALCIUM 9.3 mg/dL 05/18/2016 Renal Nrb181 PHOS 3.2 mg/dL 05/18/2016 Renal Rsw300 ALBUMIN 4.2 g/dL 05/18/2016 Random Urine Protein/Creatinine Ratio [id number] U Prot 15.0 mg/dl 05/18/2016 Random Urine Protein/Creatinine Ratio [id number] U CREAT 141.0 mg/dL 05/18/2016 Random Urine Protein/Creatinine Ratio [id number] R MTP/Creat Ratio 0.11 05/18/2016 Urinalysis Ord28 [...] 28.5 pg 02/19/2016 Cbc With Differential Ord2 Noble% 9.5 % 02/19/2016 Cbc With Differential Ord2 [...] 1.91 K/ul 02/19/2016 Cbc With Differential Ord2 Noble ABS# 0.5 K/ul 02/19/2016 Cbc With Differential Ord2 Eos ABS# 0.2 K/ul 02/19/2016 Cbc With Differential Ord2 Baso ABS# 0.0 K/ul 02/19/2016 Cbc With Differential Ord2 New Analyzer Notice Please note new ref ranges starting 10-29-2015 due to implemntation of new five part differential hematolgy analyzer. 02/19/2016 Tsh Ord6 hTSH II 2.10 uIU/mL 02/19/2016 Comp Metabolic Kik887 NA 138 mEq/L 02/19/2016 Comp Metabolic Xvd808 K 3.8 mEq/L 02/19/2016 Comp Metabolic Wit004 CL 103 mEq/L 02/19/2016 Comp Metabolic Lla561 CO2 28.0 mEq/L 02/19/2016 Comp Metabolic Wmh251 ANION GAP 11 02/19/2016 Comp Metabolic Uzg392 GLUCOSE 94 mg/dL 02/19/2016 Comp Metabolic Djs942 Creat 1.0 mg/dL 02/19/2016 Comp Metabolic Bxp934 eGFR 75 ml/min/1.73m2 02/19/2016 Comp Metabolic Vnk418 BUN 18 mg/dL 02/19/2016 Comp Metabolic Zbe802 B/C Ratio 17.6 Ratio 02/19/2016 Comp Metabolic Tdh804 CALCIUM 9.6 mg/dL 02/19/2016 Comp Metabolic Lkd484 ALK PHOS 93 U/L 02/19/2016 Comp Metabolic Dnb066 AST(SGOT) 23 U/L 02/19/2016 Comp Metabolic Hne355 ALT(SGPT) 19 U/L 02/19/2016 Comp Metabolic Piv890 BILI T 0.8 mg/dL 02/19/2016 Comp Metabolic Aeu949 ALBUMIN 4.1 g/dL 02/19/2016 Comp Metabolic Hpk637 TPRO 6.8 g/dL 02/19/2016 Comp Metabolic Lwo766 GLOB 2.7 g/dL 02/19/2016 Comp Metabolic Kiz889 A/G Ratio 1.5 Ratio 02/19/2016 Comp Metabolic Szi569 Osmo 277 mOsmo 02/19/2016 Uric Acid Ord77 Uric A 6.0 mg/dL 02/19/2016 Total Psa Ord10 PSA 0.82 ng/mL 02/19/2016 Comp Metabolic Fqy677 NA 140 mEq/L 12/16/2015 Comp Metabolic Fzs929 K 4.0 mEq/L 12/16/2015 Comp Metabolic Zke993 CL 105 mEq/L 12/16/2015 Comp Metabolic Uzi732 CO2 24.0 mEq/L 12/16/2015 Comp Metabolic Yre741 ANION GAP 15 12/16/2015 Comp Metabolic Tkr298 GLUCOSE 85 mg/dL 12/16/2015 Comp Metabolic Uoz904 Creat 1.2 mg/dL 12/16/2015 Comp Metabolic Pvr654 eGFR 65 ml/min/1.73m2 12/16/2015 Comp Metabolic Oqx209 BUN 14 mg/dL 12/16/2015 Comp Metabolic Zcd009 B/C Ratio 12.1 Ratio 12/16/2015 Comp Metabolic Vbg884 CALCIUM 9.1 mg/dL 12/16/2015 Comp Metabolic Ppx597 ALK PHOS 162 U/L 12/16/2015 Comp Metabolic Arr375 AST(SGOT) 14 U/L 12/16/2015 Comp Metabolic Ihi939 ALT(SGPT) 17 U/L 12/16/2015 Comp Metabolic Lzr759 BILI T 1.0 mg/dL 12/16/2015 Comp Metabolic Eom522 ALBUMIN 3.4 g/dL 12/16/2015 Comp Metabolic Zdc780 TPRO 6.2 g/dL 12/16/2015 Comp Metabolic Sth099 GLOB 2.9 g/dL 12/16/2015 Comp Metabolic Stj228 A/G Ratio 1.2 Ratio 12/16/2015 Comp Metabolic Dfr463 Osmo 279 mOsmo 12/16/2015 Uric Acid Ord77 [...] 29.9 % 12/16/2015 Cbc With Differential Ord2 Noble% 7.5 % 12/16/2015 Cbc With Differential Ord2 [...] 1.52 K/ul 12/16/2015 Cbc With Differential Ord2 Noble ABS# 0.4 K/ul 12/16/2015 Cbc With Differential [...] C/HDL 4.0 Ratio 07/21/2015 Urine Protein 24Hr Vak446 U Prot 5.1 mg/dl 05/16/2015 Urine Protein 24Hr Igf373 U Prot24 71.5 mg/24hr 05/16/2015 Total Volume Urine Skb145 TV/24hr 1400 ml 05/16/2015 Total Psa Ord10 PSA 0.70 ng/mL 05/15/2015 Renal Jdo224 NA 135 mEq/L 05/15/2015 Renal Sow116 K 3.9 mEq/L 05/15/2015 Renal Dgr694 CL 101 mEq/L 05/15/2015 Renal Aun263 CO2 27.0 mEq/L 05/15/2015 Renal Txv007 ANION GAP 11 05/15/2015 Renal Pie500 Osmo 274 mOsmo 05/15/2015 Renal Ftr850 GLUCOSE 132 mg/dL 05/15/2015 Renal Jvm110 BUN 19 mg/dL 05/15/2015 Renal Puk740 Creat 1.1 mg/dL 05/15/2015 Renal Eqn463 eGFR 67 ml/min/1.73m2 05/15/2015 Renal Qkd736 B/C Ratio 17.0 Ratio 05/15/2015 Renal Kmj520 CALCIUM 9.6 mg/dL 05/15/2015 Renal Cgf010 PHOS 3.0 mg/dL 05/15/2015 Renal Osn903 ALBUMIN 4.3 g/dL 05/15/2015 Cbc With Differential [...] Result Effective Dates Constitutional No recent illness 2019 Constitutional No [...] Result Effective Dates Notes Full Exam - Orthopedics Constitutional general appearance [...] 1994 Ears/Nose/Throat oral cavity/pharynx/larynx Overall: hypopharynx benign 12/25/2018 [...] General 1995 Ears/Nose/Throat lips/teeth/gingiva Overall: normal dentition 11/27/2018 None [...] Formatting Model/CDA Sections, Assigned to/Sharee Ramirez CPT-4: [id number] 07/05/2018 THER/PROPH/DIAG INJ SC/IM CPT-4: 80451 06/12/2018 TRIAMCINOLONE ACET INJ NOS CPT-4: J3301 06/12/2018 PPPS, SUBSEQ VISIT CPT- 4: G0439 08/03/2017 ADMIN INFLUENZA VIRUS VAC CPT-4: G0008 06/28/2016 FLU VACC PRSV FREE INC ANTIG CPT-4: 59270 06/28/2016 TENIVAC TD VACCINE NO PRSRV 7/> IM CPT-4: 39119 06/28/2016 OCCULT BLOOD FECES CPT- 4: 40883 02/19/2015 Vital Signs Date Vital 2019 Blood Pressure 1: 136/74 Code: 8480-6 BMI: 28.6 Code: 43103-7 Heart Rate 1: 97 bpm Height: 6' SpO2: 94% Weight: 211 lbs 01/08/2019 Blood Pressure 1: 128/86 Code: 8480-6 BMI: 28.6 Code: 52891-2 Heart Rate 1: 96 bpm Height: 6' SpO2: 97% Weight: 211 lbs 12/25/2018 Blood Pressure 1: 112/62 Code: 8480-6 BMI: 28.6 Code: 00754-5 Heart Rate 1: 76 bpm Height: 6' SpO2: 96% Weight: 211 lbs 12/13/2018 Blood Pressure 1: 114/78 Code: 8480-6 BMI: 29.4 Code: 33539-0 Heart Rate 1: 73 bpm Height: 6' SpO2: 93% Weight: 217 lbs 11/27/2018 Blood Pressure 1: 110/70 Code: 8480-6 BMI: 28.5 Code: 05416-3 Heart Rate 1: 90 bpm Height: 6' SpO2: 95% Temperature: 36.8 (C) / 98.2 (F) Weight: 210 lbs 8 oz 09/26/2018 Blood Pressure 1: 130/80 Code: 8480-6 BMI: 29.6 Code: 87522-2 Heart Rate 1: 98 bpm Height: 6' SpO2: 93% Weight: 218 lbs 08/10/2018 BMI: 29.4 Code: 26662-7 Height: 6' Weight: 217 lbs 07/26/2018 Blood Pressure 1: 116/72 Code: 8480-6 BMI: 29.4 Code: 54315-7 Heart Rate 1: 102 bpm Height: 6' SpO2: 96% Weight: 217 lbs 07/05/2018 Blood Pressure 1: 132/72 Code: 8480-6 Heart Rate 1: 60 bpm SpO2: 95% 06/12/2018 Blood Pressure 1: 120/78 Code: 8480-6 BMI: 29.6 Code: 65445-8 Heart Rate 1: 103 bpm Height: 6' SpO2: 96% Weight: 218 lbs 05/10/2018 Blood Pressure 1: 114/68 Code: 8480-6 BMI: 29.4 Code: 77441-6 Heart Rate 1: 92 bpm Height: 6' SpO2: 97% Weight: 217 lbs 03/27/2018 Blood Pressure 1: 126/74 Code: 8480-6 BMI: 30.1 Code: 65403-5 Heart Rate 1: 103 bpm Height: 6' SpO2: 96% Weight: 222 lbs 01/25/2018 Blood Pressure 1: 122/70 Code: 8480-6 Blood Pressure 2: 126/73 Code: 8480-6 Heart Rate 1: 63 bpm SpO2: 94% 01/24/2018 Blood Pressure 1: 110/72 Code: 8480-6 BMI: 29.7 Code: 87622-1 Heart Rate 1: 88 bpm Height: 6' SpO2: 95% Weight: 219 lbs 12/08/2017 Blood Pressure 1: 12068 Code: 8480-6 BMI: 30.0 Code: 16248-1 Heart Rate 1: 91 bpm Height: 6' SpO2: 96% Temperature: 36.7 (C) / 98.1 (F) Weight: 221 lbs 10/27/2017 Blood Pressure 1: 124/76 Code: 8480-6 BMI: 30.1 Code: 20486-1 Heart Rate 1: 69 bpm Height: 6' SpO2: 95% Weight: 222 lbs 09/29/2017 Blood Pressure 1: 118/66 Code: 8480-6 BMI: 29.9 Code: 74202-1 Heart Rate 1: 81 bpm Height: 6' SpO2: 95% Weight: 220 lbs 8 oz 09/01/2017 Blood Pressure 1: 122/82 Code: 8480-6 BMI: 29.6 Code: 77392-3 Heart Rate 1: 75 bpm Height: 6' SpO2: 97% Weight: 218 lbs 08/03/2017 Blood Pressure 1: 120/68 Code: 8480-6 Heart Rate 1: 68 bpm Height: 6' SpO2: 94% Waist Measure (cm): 97 cm 04/26/2017 Blood Pressure 1: 122/72 Code: 8480-6 BMI: 29.4 Code: 67955-8 Heart Rate 1: 85 bpm Height: 6' SpO2: 92% Weight: 217 lbs 01/25/2017 Blood Pressure 1: 118/78 Code: 8480-6 BMI: 29.4 Code: 86935-6 Heart Rate 1: 72 bpm Height: 6' SpO2: 94% Temperature: 36.9 (C) / 98.5 (F) Weight: 217 lbs 10/26/2016 Blood Pressure 1: 152/86 Code: 8480-6 BMI: 29.7 Code: 18381-9 Heart Rate 1: 58 bpm Height: 6' Weight: 219 lbs 09/27/2016 Blood Pressure 1: 138/80 Code: 8480-6 BMI: 29.4 Code: 63575-2 Heart Rate 1: 52 bpm Height: 6' SpO2: 98% Weight: 217 lbs 06/28/2016 Blood Pressure 1: 128/86 Code: 8480-6 BMI: 29.6 Code: 97280-8 Heart Rate 1: 69 bpm Height: 6' SpO2: 93% Weight: 218 lbs 04/27/2016 Blood Pressure 1: 11882 Code: 8480-6 BMI: 29.3 Code: 84011-6 Heart Rate 1: 85 bpm Height: 6' SpO2: 98% Weight: 216 lbs 02/17/2016 Blood Pressure 1: 132/80 Code: 8480-6 BMI: 28.8 Code: 12769-8 Heart Rate 1: 94 bpm Height: 6' SpO2: 98% Weight: 212 lbs 01/20/2016 Blood Pressure 1: 120/70 Code: 8480-6 BMI: 29.7 Code: 51795-5 Heart Rate 1: 87 bpm Height: 6' SpO2: 92% Weight: 219 lbs 01/06/2016 Blood Pressure 1: 122/88 Code: 8480-6 BMI: 28.8 Code: 47852-1 Heart Rate 1: 83 bpm Height: 6' SpO2: 97% Weight: 212 lbs 12/16/2015 Blood Pressure 1: 98/62 Code: 8480-6 Heart Rate 1: 62 bpm Height: 6' SpO2: 90% Weight: 11/27/2015 Blood Pressure 1: 90/64 Code: 8480-6 Blood Pressure 1: 110/80 Code: 8480-6 Heart Rate 1: 91 bpm Height: 6' SpO2: 92% Weight: 07/30/2015 Blood Pressure 1: 112/82 Code: 8480-6 BMI: 30.5 Code: 83768-3 Heart Rate 1: 82 bpm Height: 6' SpO2: 92% Weight: 225 lbs 06/09/2015 Blood Pressure 1: 130/76 Code: 8480-6 BMI: 31.1 Code: 25964-3 Heart Rate 1: 65 bpm Height: 6' SpO2: 96% Weight: 229 lbs 04/29/2015 Blood Pressure 1: 118/78 Code: 8480-6 BMI: 30.7 Code: 16765-4 Heart Rate 1: 70 bpm Height: 6' Weight: 226 lbs 02/19/2015 Blood Pressure 1: 118/70 Code: 8480-6 BMI: 29.7 Code: 45033-2 Heart Rate 1: 68 bpm Height: 6' Weight: 219 lbs Functional Status No Functional Status data History of Present Illness Symptom Name Status Result Effective Date Notes Location on the left 2019 None Quality [...] Codes Date EST. PATIENT, LEVEL III Diagnosis: Pleurodynia[ICD10: R07.81] Mady Butcher MD, [facility] CPT-4: 56651 2019 [id number]) 83305 EST. PATIENT, LEVEL III Diagnosis: Other allergic rhinitis[ICD10: J30.89] Merline Butcher MD, [facility] CPT-4: 92886 01/08/2019 73517 EST. PATIENT, LEVEL IV Diagnosis: Other fatigue[ICD10: R53.83] Diagnosis: Obstructive sleep apnea (adult) (pediatric)[ICD10: G47.33] Diagnosis: Other malaise[ICD10: R53.81] Mady Butcher MD, [facility] CPT-4: 24102 12/25/2018 [id number]) 40850 EST. PATIENT, LEVEL IV Diagnosis: Shortness of breath[ICD10: R06.02] Diagnosis: Other fatigue[ICD10: R53.83] Diagnosis: Obstructive sleep apnea (adult) (pediatric)[ICD10: G47.33] Diagnosis: Other malaise[ICD10: R53.81] Lesley Butcher MD, [facility] CPT-4: 74428 12/13/2018 [id number]) 58787 EST. PATIENT, LEVEL IV Diagnosis: Shortness of breath[ICD10: R06.02] Diagnosis: Dizziness and giddiness[ICD10: R42] Diagnosis: Other fatigue[ICD10: R53.83] Diagnosis: Essential (primary) hypertension[ICD10: I10] Diagnosis: Muscle weakness (generalized)[ICD10: M62.81] Merline Butcher MD [facility] CPT-4: 62786 11/27/2018 ([id number]) 37614 EST. PATIENT, LEVEL IV Diagnosis: Essential (primary) hypertension[ICD10: I10] Diagnosis: Vertigo of central origin, right ear[ICD10: H81.41] Diagnosis: Low back pain[ICD10: M54.5] Lesley Butcher MD [facility] CPT-4: 24209 09/26/2018 ([id number]) 35782 EST. PATIENT, LEVEL III Diagnosis: Dizziness and giddiness[ICD10: R42] Diagnosis: Vertigo of central origin, right ear[ICD10: H81.41] Diagnosis: Essential (primary) hypertension[ICD10: I10] Lesley Butcher MD [facility] CPT-4: 37869 07/26/2018 ([id number]) 41667 EST. PATIENT, LEVEL III Diagnosis: Essential (primary) hypertension[ICD10: I10] Lesley Butcher MD [facility] CPT-4: 57379 06/12/2018 ([id number]) 86492 EST. PATIENT, LEVEL IV Diagnosis: Other iron deficiency anemias[ICD10: D50.8] Diagnosis: Weakness[ICD10: R53.1] Diagnosis: Diverticulosis of large intestine without perforation or abscess with bleeding[ICD10: K57.31] Lesley Butcher MD [facility] CPT-4: 67312 05/10/2018 ([id number]) 51438 EST. PATIENT, LEVEL IV Diagnosis: Essential (primary) hypertension[ICD10: I10] Diagnosis: Major depressive disorder, recurrent, mild[ICD10: F33.0] Diagnosis: Sensorineural hearing loss, bilateral[ICD10: H90.3] Lesley Butcher MD [facility] CPT-4: 13418 03/27/2018 ([id number]) Miscellaneous no charge Diagnosis: Essential (primary) hypertension[ICD10: I10] Mady Butcher MD [facility] CPT-4: 94078 01/25/2018 ([id number]) 59305 EST. PATIENT, LEVEL IV Diagnosis: Essential (primary) hypertension[ICD10: I10] Diagnosis: Sensorineural hearing loss, bilateral[ICD10: H90.3] Diagnosis: Mixed hyperlipidemia[ICD10: E78.2] Diagnosis: Major depressive disorder, recurrent, mild[ICD10: F33.0] Lesley Butcher MD, [facility] CPT-4: 05323 01/24/2018 88885 EST. PATIENT, LEVEL IV Diagnosis: Other malaise[ICD10: R53.81] Diagnosis: Fever, unspecified[ICD10: R50.9] Mady Butcher MD, [facility] CPT-4: 63937 12/08/2017 ([id number]) 82719 EST. PATIENT, LEVEL III Diagnosis: Essential (primary) hypertension[ICD10: I10] Lesley Butcher MD, [facility] CPT-4: 99498 10/27/2017 ([id number]) 50842 EST. PATIENT, LEVEL III Diagnosis: Benign prostatic hyperplasia with lower urinary tract symptoms[ICD10: N40.1] Diagnosis: Dysphagia, pharyngeal phase[ICD10: R13.13] Lesley Butcher MD, [facility] CPT-4: 64089 09/29/2017 ([id number]) 53160 EST. PATIENT, LEVEL IV Diagnosis: Essential (primary) hypertension[ICD10: I10] Diagnosis: Major depressive disorder, recurrent, mild[ICD10: F33.0] Diagnosis: Sensorineural hearing loss, bilateral[ICD10: H90.3] Lesley Butcher MD, [facility] CPT-4: 00259 09/01/2017 ([id number]) 53414 EST. PATIENT, LEVEL IV Diagnosis: Essential (primary) hypertension[ICD10: I10] Diagnosis: Major depressive disorder, recurrent, mild[ICD10: F33.0] Diagnosis: Mixed hyperlipidemia[ICD10: E78.2] Lesley Butcher MD, [facility] CPT- 4: 16063 04/26/2017 ([id number]) 21510 EST. PATIENT, LEVEL IV Diagnosis: Essential (primary) hypertension[ICD10: I10] Diagnosis: Major depressive disorder, recurrent, mild[ICD10: F33.0] Diagnosis: Urge incontinence[ICD10: N39.41] Lesley Butcher MD [facility] CPT-4: 22706 01/25/2017 [id number]) 91780 EST. PATIENT, LEVEL IV Diagnosis: Essential (primary) hypertension[ICD10: I10] Diagnosis: Major depressive disorder, recurrent, mild[ICD10: F33.0] Diagnosis: Urge incontinence[ICD10: N39.41] Lesley Butcher MD, [facility] CPT-4: 32269 10/26/2016 ([id number]) 78260 EST. PATIENT, LEVEL III Diagnosis: Essential (primary) hypertension[ICD10: I10] Diagnosis: Major depressive disorder, recurrent, mild[ICD10: F33.0] Diagnosis: Urge incontinence[ICD10: N39.41] Lesley Butcher MD, [facility] CPT-4: 76102 09/27/2016 ([id number]) 79332 EST. PATIENT, LEVEL IV Diagnosis: Essential (primary) hypertension[ICD10: I10] Diagnosis: Encounter for immunization[ICD10: Z23] Diagnosis: Laceration without foreign body of left forearm, initial encounter[ICD10: S51.812A] Diagnosis: Laceration without foreign body of right forearm, initial encounter[ICD10: S51.811A] Diagnosis: Major depressive disorder, recurrent, mild[ICD10: F33.0] Lesley Butcher MD, [facility] CPT-4: 97931 06/28/2016 [id number]) 50264 EST. PATIENT, LEVEL IV Diagnosis: Essential (primary) hypertension[ICD10: I10] Diagnosis: Idiopathic gout, left ankle and foot[ICD10: M10.072] Diagnosis: Other iron deficiency anemias[ICD10: D50.8] Lesley Butcher MD, [facility] CPT-4: 54125 04/27/2016 89561 51986 EST. 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 PATIENT, LEVEL IV Diagnosis: Idiopathic gout, left ankle and foot[ICD10: M10.072] Diagnosis: Essential (primary) hypertension[ICD10: I10] Diagnosis: Major depressive disorder, single episode, unspecified[ICD10: F32.9] Lesley Butcher MD, [facility] CPT-4: 64231 01/06/2016 73754 EST. PATIENT, LEVEL IV Diagnosis: Weakness[ICD10: R53.1] Diagnosis: Gout, unspecified[ICD10: M10.9] Diagnosis: Hypotension, unspecified[ICD10: I95.9] Lesley Butcher MD, [facility] CPT-4: 14239 12/16/2015 ([id number]) Patient admitted to the hospital from clinic (NO CHARGE) Diagnosis: Hypoxemia[ICD10: R09.02] Diagnosis: Weakness[ICD10: R53.1] Diagnosis: Dyspnea, unspecified[ICD10: R06.00] Mady Butcher MD, [facility] CPT- 4: 91965A 11/27/2015 ([id number]) 14637 EST. PATIENT, LEVEL III Diagnosis: Essential (primary) hypertension[ICD10: I10] Diagnosis: Gastro-esophageal reflux disease without esophagitis[ICD10: K21.9] Lesley Butcher MD, [facility] CPT-4: 17583 07/30/2015 ([id number]) 82765 EST. PATIENT, LEVEL III Diagnosis: ESSENTIAL HYPERTENSION[ICD9: 401.9] Merline Butcher MD, [facility] CPT-4: 41702 06/09/2015 ([id number]) 90792 EST. PATIENT, LEVEL III Diagnosis: ESSENTIAL HYPERTENSION[ICD9: 401.9] Lesley Butcher MD, [facility] CPT- 4: 48880 04/29/2015 ([id number]) OFFICE/OUTPATIENT VISIT NEW Diagnosis: ESSENTIAL HYPERTENSION[ICD9: 401.9] Diagnosis: DEPRESSIVE DISORDER NEC[ICD9: 311] Diagnosis: Enlarged prostate[ICD9: 600.00] Diagnosis: Nasal inflammation due to allergen[ICD9: 477.9] [facility] CPT-4: 72605 02/19/2015 Plan of Care Planned Activity Notes Codes Status Date Visit Plan: Left rib pain - x-ray pending - The pt is to use prn antiinflammatories to manage acute pain. The patient is to call the office if the pain is worsening or does not improve. 2019 Patient Education: Patient Medication Summary Completed [...] allergy spray. 01/08/2019 Appointment: Merline Rose WPtel: [id number] (30 min) Complex 01/08/2019 Patient Education: Patient Medication Summary Completed 01/08/2019 Visit Plan: Fatigue, shortness of breath, dizziness - pt is to continue PT, pt is to follow up with Dr. Panad and Dr. Harvey and is to notify clinic with any changes in the current treatment plan. 12/25/2018 App[facility]ment[phone] (15 min) Moderate 12/25/2018 Patient Education: Patient [...] at 96% 12/13/2018 Appointment: Lesley Butcher WPtel: [phone] [facility] (15 min) Moderate 12/13/2018 Patient Education: Patient Medication Summary Completed 12/13/2018 Visit Plan: WCN-yrdrcbq-sqmuworxc of breath -patient reports worsening of chronic symptoms -will check EKG and cardiac enzymes to evaluate for acute changes -recommend patient follow up with his specialty molder, Dr Sharyn vu -patient, and daughter verbalized understanding of plan. Generalized weakness-discussed PT referral after cleared by cardiology -patient's will call us when she wants to have it set up HTN-no change but monitor at home 11/27/2018 Appointment: Merline Rose WPtel: [phone] [id number] [place] (15 min) Moderate 11/27/2018 Patient Education: [...] sessions. 09/26/2018 Appointment: Lesley Butcher WPtel: [phone] [facility] [place] (15 min) Moderate 09/26/2018 Patient Education: [...] care surrogate. 08/10/2018 Appointment: Mady Dunne WPtel: [id number] [place] [address] - Annual Wellness Visit 08/10/2018 Patient Education: [...] at home. 07/26/2018 Appointment: Lesley Butcher WPtel: [id number] (15 min) Moderate 07/26/2018 Patient Education: [...] dexamethasone. 06/12/2018 Appointment: Lesley Butcher WPtel: [phone] [facility] (15 min) Moderate 06/12/2018 Patient Education: Patient Medication Summary Completed 06/12/2018 Visit Plan: Diverticulosis with recent GI bleeding - improved - continue with supportive care, avoid foods which cause any abdominal pain - monitor symptoms - call if any pain or bleeding recurs. Anemia - check labs today. Weakness - continue with increasing of activity. 05/10/2018 Appointment: [facility] But[phone] (30 min) Complex 05/10/2018 Patient Education: Patient [...] implant. 03/27/2018 Appointment: Lesley Butcher [facility]Ptel: [phone] (15 min) Moderate 03/27/2018 Patient Education: Patient [...] to medications. 01/24/2018 Appointment: Lesley Butcher WPtel: [facility] (15 min) Moderate 01/24/2018 Patient Education: Patient Medication Summary Completed 01/24/2018 Visit Plan: Influenza - pt started on tamiflu - pt to start on anti-inflammatories, tylenol and monitor symptoms. Pt to call if not improving. Pt to alert any close contacts as to illness. 12/08/2017 Appointment: Mady Dunne WPtel: [id number] (30 min) Complex 12/08/2017 Patient Education: Patient Medication Summary Completed 12/08/2017 Visit Plan: Hypertension - well controlled - continue with current medications, continue with no added salt diet. Pt has been encouraged to exercise daily. The pt has been advised to call the office if there are any acute concerns about change in blood pressure readings at home. 10/27/2017 Appointment: Lesley Butcher WPtel: [id number] (15 min) Moderate 10/27/2017 Patient Education: Patient Medication Summary Completed 10/27/2017 Referral: External, Ordering Provider Referral Initiated 10/12/2017 Visit Plan: BPH - continue with dutasteride and flomax Dysphagia - referral to Dr. Kumar for EGD - question stricture - dysphagia intermittently - hx of stricture. 09/29/2017 Appointment: Lesley Butcher WPtel: [id number] (15 min) Moderate 09/29/2017 Patient Education: Patient Medication Summary Completed 09/29/2017 Care Plan: Referral Order SNOMED-CT : [id number] Pending 09/29/2017 Visit Plan: Hypertension - well [...] recommended patient to have an evaluation at [facility] to see if he has potential for cochlear implant. 09/01/2017 Appointment: Lesley Butcher [facility]Ptel[phone] (15 min) Moderate 09/01/2017 Patient Education: Patient Medication Summary Completed 09/01/2017 Care Plan: Referral Order SNOMED-CT : [id number] Pending 09/01/2017 Visit Plan: Medicare Exam - [...] surrogate. 08/03/2017 Appointment: [phone] [facility] - Welcome to Medicare visit [...] current medications. 04/26/2017 Appointment: Lesley Butcher WPtel: [phone] [id number] (15 min) Moderate 04/26/2017 Patient Education: Patient [...] daily. 01/25/2017 Appointment: Lesley Butcher WPtel: [phone] [id number] (30 min) Complex 01/25/2017 Patient Education: Patient [...] detrol [place] 10/26/2016 Appointment: Lesley Butcher WPtel: [phone] (15 min) Moderate 10/26/2016 Patient Education: Patient [...] occur. 09/27/2016 Appointment: Lesley Butcher WPtel: [phone] (15 min) Moderate 09/27/2016 Patient Education: Patient [...] shelli andrea 06/28/2016 Appointment: Lesley Butcher WPtel: [phone] [place] (15 min) Moderate 06/28/2016 Patient Education: Patient [...] drops-zaditor Menieres-increase dexamethasone x 1 month 02/17/2016 Appointment: Merline Rose WPtel: [address] [place] [address] (30 min) Complex 02/17/2016 Patient Education: Patient [...] Summary Completed 12/16/2015 Appointment: Lesley Butcher WPtel: [facility] (15 min) Moderate 12/04/2015 Appointment: Lesley Butcher WPtel: [facility] [place] (15 min) Moderate 12/02/2015 Visit Plan: Admission [...] 07/30/2015 Appointment: Lesley Butcher WPtel: [phone] [place] (15 min) Moderate 07/30/2015 Patient Education: Patient [...] home. 04/29/2015 Appointment: Lesley Butcher WPtel: [facility] [place] (15 min) Moderate 04/29/2015 Patient Education: Patient [...] External, Ordering Provider Referral Appointment Requested Referral: [facility] 09/12 Referral info faxed Appointment Requested Referral: [facility] Referral Appointment Requested Instructions Comment . [...] planned injection in back and call the district court bailiff about a biopsy of the lesion on [...] ILLNESS. CHECK CARDIAC ENYZMES AND EKG . EHU-tmyqvpj-imoceezqw of breath -patient reports worsening of chronic symptoms -will check EKG and cardiac enzymes to evaluate for acute changes -recommend patient follow up with his specialty molder, Dr Stokes -patient, and daughter verbalized understanding [...] recommended patient to have an evaluation at [facility] to see if he has potential [...]
--- OUTSIDE RECORDS SUMMARY | 2019-03-23 19:45 | XMS REPORT | CCD ---
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 Name Role Phone PP Unavailable CCM Unavailable Summary Purpose Interface Exchange Insurance Providers Payer name Policy type / Coverage type Covered republican ID Effective Begin Date Effective End Date WPS Medicare Part B Medicare Part B [id number] 2018 Unknown [facility] Medicare Part B [id number] Unknown Family history Father Diagnosis Age At Onset Hypertension Unknown Coronary Artery Disease Unknown Sister Diagnosis Age At Onset Heart disease Unknown Mother Diagnosis Age At Onset Coronary Artery Disease Unknown Hypertension Unknown Social History Social History Element Codes Description Effective Dates Marital status Unknown 02/19/2015 Number of children Unknown 2 02/19/2015 Employment Unknown Retired 02/19/[address]: 433999684 Has never smoked or chewed tobacco 02/19/2015 Alcohol history Unknown occasionally drinks alcohol 02/19/2015 Allergies, Adverse Reactions, Alerts Substance Reaction Codes Entered Date Inactivated Date Status bactrim RxNorm: 569445 12/19/2015 No Inactive Date Active ciprofloxacin RxNorm: 08480 02/18/2015 No Inactive Date Active Past Medical [...] Fill Instructions Requip 0.25 mg tablet RxNorm: 908513 1 Tablet(s) PO QHS 2019 02/13/2019 Active pantoprazole 40 mg tablet,delayed release RxNorm: 154199 TAKE ONE TABLET BY MOUTH ONCE DAILY AT BEDTIME 11/27/2018 No Stop Date Active atorvastatin 40 mg tablet RxNorm: 824539 1 Tablet(s) PO daily 09/26/2018 10/25/2018 Inactive dexamethasone 0.5 mg tablet RxNorm: 591409 TAKE 1 TABLET BY MOUTH ONCE DAILY 08/29/2018 No Stop Date Active clonazepam 1 mg tablet RxNorm: 303914 1/2 Tablet(s) PO QHS 08/24/2018 12/21/2018 Inactive allopurinol 100 mg tablet RxNorm: 026611 TAKE ONE TABLET BY MOUTH ONCE DAILY 08/03/2018 No Stop Date Active citalopram 40 mg tablet RxNorm: 518393 TAKE ONE TABLET BY MOUTH ONCE DAILY 06/13/2018 No Stop Date Active Kenalog 40 mg/mL suspension for injection RxNorm: 7175067 Milliliter(s) Inj 06/12/2018 06/12/2018 Inactive clonazepam 1 mg tablet RxNorm: 109127 1 Tablet(s) PO QHS 06/12/2018 08/23/2018 Inactive losartan 50 mg tablet RxNorm: 488648 1/2 Tablet(s) PO daily 05/24/2018 No Stop Date Active clonazepam 1 mg tablet RxNorm: 492575 1/2 Tablet(s) TAKE ONE TABLET BY MOUTH ONCE DAILY AT BEDTIME AND ONE TABLET THREE TIMES DAILY NEEDED 05/24/2018 06/11/2018 Inactive citalopram 40 mg tablet RxNorm: 520983 1/2 Tablet(s) TAKE ONE TABLET BY MOUTH ONCE DAILY 05/24/2018 09/25/2018 Inactive spironolactone 25 mg tablet RxNorm: 518835 TAKE ONE TABLET BY MOUTH ONCE DAILY 05/22/2018 No Stop Date Active dexamethasone 0.5 mg tablet RxNorm: 488079 TAKE ONE TABLET BY MOUTH ONCE DAILY 02/21/2018 08/28/2018 Inactive Flomax 0.4 mg capsule RxNorm: 709024 TAKE ONE CAPSULE BY MOUTH ONCE DAILY IN THE EVENING 12/19/2017 No Stop Date Active Tamiflu 75 mg capsule RxNorm: 238692 1 Capsule(s) PO BID 12/08/2017 12/12/2017 Inactive clonazepam 1 mg tablet RxNorm: 233528 Tablet(s) TAKE ONE TABLET BY MOUTH ONCE DAILY AT BEDTIME AND ONE TABLET THREE TIMES DAILY NEEDED 11/28/2017 01/26/2018 Inactive pantoprazole 40 mg tablet,delayed release RxNorm: 067101 TAKE ONE TABLET BY MOUTH ONCE DAILY AT BEDTIME 11/07/2017 11/26/2018 Inactive allopurinol 100 mg tablet RxNorm: 902891 TAKE ONE TABLET BY MOUTH ONCE DAILY 10/03/2017 08/02/2018 Inactive pantoprazole 40 mg tablet,delayed release RxNorm: 973124 1 Tablet(s) PO BID 09/01/2017 05/28/2018 Inactive Vitamin B-6 100 mg tablet RxNorm: 533102 1 Tablet(s) PO daily 09/01/2017 06/11/2018 Inactive dutasteride 0.5 mg capsule RxNorm: 151052 1 Capsule(s) PO QPM 09/01/2017 06/11/2018 Inactive spironolactone 25 mg tablet RxNorm: 234079 TAKE ONE TABLET BY MOUTH ONCE DAILY 08/15/2017 05/21/2018 Inactive citalopram 40 mg tablet RxNorm: 473255 TAKE ONE TABLET BY MOUTH ONCE DAILY 08/08/2017 05/04/2018 Inactive dexamethasone 0.5 mg tablet RxNorm: 130894 TAKE ONE TABLET BY MOUTH ONCE DAILY 08/08/2017 11/05/2017 Inactive clonazepam 1 mg tablet RxNorm: 928777 TAKE ONE TABLET BY MOUTH ONCE DAILY AT BEDTIME AND ONE THREE TIMES DAILY NEEDED 05/12/2017 08/08/2017 Inactive clonazepam 1 mg tablet RxNorm: 472218 1 Tablet(s) PO QHS AND 1 TAB PO TID PRN 05/12/2017 05/13/2017 Inactive oxybutynin chloride ER 10 mg tablet,extended release 24 hr RxNorm: 663595 1 Tablet(s) PO daily 04/29/2017 08/02/2017 Inactive dexamethasone 0.5 mg tablet RxNorm: 386469 TAKE ONE TABLET BY MOUTH ONCE DAILY 02/14/2017 04/14/2017 Inactive Flomax 0.4 mg capsule RxNorm: 730542 TAKE ONE CAPSULE BY MOUTH ONCE DAILY IN THE EVENING 02/14/2017 11/10/2017 Inactive pantoprazole 40 mg tablet,delayed release RxNorm: 236838 TAKE ONE TABLET BY MOUTH ONCE DAILY AT BEDTIME 02/14/2017 08/31/2017 Inactive oxybutynin chloride ER 10 mg tablet,extended release 24 hr RxNorm: 841200 1 Tablet(s) PO daily 01/25/2017 04/24/2017 Inactive dexamethasone 0.5 mg tablet RxNorm: 046713 TAKE ONE TABLET BY MOUTH ONCE DAILY 11/10/2016 12/09/2016 Inactive oxybutynin chloride ER 5 mg tablet,extended release 24 hr RxNorm: 050300 1 Tablet(s) PO daily 10/28/2016 10/27/2016 Inactive oxybutynin chloride ER 5 mg tablet,extended release 24 hr RxNorm: 406678 1 Tablet(s) PO daily 10/28/2016 01/24/2017 Inactive Detrol LA 2 mg capsule,extended release RxNorm: 506525 1 Capsule(s) PO QPM 10/26/2016 10/27/2016 Inactive clonazepam 1 mg tablet RxNorm: 571645 1 Tablet(s) PO QHS AND 1 TAB PO TID PRN 10/20/2016 04/17/2017 Inactive dexamethasone 0.5 mg tablet RxNorm: 275953 TAKE ONE TABLET BY MOUTH ONCE DAILY 10/06/2016 11/04/2016 Inactive allopurinol 100 mg tablet RxNorm: 738478 1 Tablet(s) PO daily 09/30/2016 09/24/2017 Inactive Vesicare 5 mg tablet RxNorm: 355155 1 Tablet(s) PO QPM 09/27/2016 12/12/2016 Inactive spironolactone 25 mg tablet RxNorm: 587408 1 Tablet(s) PO daily 08/06/2016 07/31/2017 Inactive citalopram 40 mg tablet RxNorm: 968662 1 Tablet(s) PO daily 06/28/2016 06/22/2017 Inactive Plavix 75 mg tablet RxNorm: 048135 1 Tablet(s) PO daily 04/27/2016 No Stop Date Active iron ER 159 mg (45 mg iron) tablet,extended release RxNorm: 858251 1 Tablet(s) PO daily 04/27/2016 08/31/2017 Inactive dexamethasone 0.5 mg tablet RxNorm: 017459 1/2 Tablet(s) PO daily 04/27/2016 02/20/2018 Inactive allopurinol 100 mg tablet RxNorm: 418912 1 Tablet(s) PO daily 04/27/2016 09/29/2016 Inactive clonazepam 1 mg tablet RxNorm: 927126 1 Tablet(s) PO QHS and 1 tab po TID prn 04/14/2016 10/07/2016 Inactive allopurinol 100 mg tablet RxNorm: 455976 1 Tablet(s) PO daily 02/17/2016 04/26/2016 Inactive citalopram 20 mg tablet RxNorm: 757161 1 Tablet(s) PO daily 01/20/2016 06/27/2016 Inactive Flomax 0.4 mg capsule RxNorm: 880100 1 Capsule(s) PO QPM 01/20/2016 01/13/2017 Inactive [SAVINGS FOR NON-COVERED DRUGS -- BIN:[id number], PCN: ASPROD1, Group: XXXXX, ID# XXXXXXX, Questions: . THIS IS NOT INSURANCE.] pantoprazole 40 mg tablet,delayed release RxNorm: 082607 1 Tablet(s) PO QHS 01/20/2016 01/13/2017 Inactive Colcrys 0.6 mg tablet RxNorm: 550374 1 Tablet(s) PO daily 01/06/2016 03/05/2016 Inactive take daily x 7 days then daily as needed for gout flair colchicine 0.6 mg tablet RxNorm: 433921 1 Tablet(s) PO BID 12/30/2015 01/01/2016 Inactive doxycycline hyclate 100 mg tablet RxNorm: 056529 1 Tablet(s) PO BID 12/19/2015 12/28/2015 Inactive doxycycline hyclate 100 mg tablet RxNorm: 781157 1 Tablet(s) PO BID 12/19/2015 12/18/2015 Inactive allopurinol 100 mg tablet RxNorm: 618010 1 Tablet(s) PO daily 12/16/2015 02/16/2016 Inactive colchicine 0.6 mg tablet RxNorm: 777503 Tablet(s) PO 1.2 mg PO in the morning and 0.6 mg at night for 2 days. 12/16/2015 12/29/2015 Inactive allopurinol 100 mg tablet RxNorm: 339971 1 Tablet(s) PO daily 12/16/2015 12/15/2015 Inactive Protonix 40 mg tablet,delayed release RxNorm: 126889 1 Tablet(s) PO daily 12/16/2015 01/14/2016 Inactive Bactrim DS 800 mg-160 mg tablet RxNorm: 205866 1 Tablet(s) PO BID 12/16/2015 12/18/2015 Inactive colchicine 0.6 mg tablet RxNorm: 822288 Tablet(s) PO 1.2 mg for the first dose and 0.6 mg an hour after 12/15/2015 12/15/2015 Inactive dexamethasone 0.5 mg tablet RxNorm: 527728 1 Tablet(s) PO 12/12/2015 02/09/2016 Inactive Plavix 75 mg tablet RxNorm: 429235 1 Tablet(s) PO every other day 12/12/2015 04/09/2016 Inactive nitroglycerin 0.4 mg sublingual tablet RxNorm: 023566 1 Tablet(s) SL x3 in 15 min as needed 12/12/2015 04/26/2016 Inactive clonazepam 1 mg tablet RxNorm: 971917 1 Tablet(s) PO QHS and 1 tab po TID prn 12/11/2015 12/03/2016 Inactive [place] 5 mg-325 mg tablet RxNorm: 138238 1-2 Tablet(s) PO Q6 as needed 12/11/2015 09/26/2016 Inactive clonazepam 1 mg tablet RxNorm: 392546 1 Tablet(s) PO QHS and 1 tab po TID prn 12/04/2015 12/10/2015 Inactive Flomax 0.4 mg capsule RxNorm: 006691 1 Capsule(s) PO QPM 09/22/2015 01/19/2016 Inactive [SAVINGS FOR NON-COVERED DRUGS -- BIN:[id number], PCN: ASPROD1, Group: XXXXX, ID# [id number], Questions: . THIS IS NOT INSURANCE.] Flomax 0.4 mg capsule RxNorm: 731736 1 Capsule(s) PO QPM 09/16/2015 09/21/2015 Inactive [SAVINGS FOR NON-COVERED DRUGS -- BIN:030687, PCN: ASPROD1, Group: XXXXX, ID# XXXXXXX, Questions: . THIS IS NOT INSURANCE.] clonazepam 1 mg tablet RxNorm: 712885 1 Tablet(s) PO QHS 08/29/2015 12/03/2015 Inactive coenzyme Q10 10 mg tablet RxNorm: 950048 1 Tablet(s) PO daily 07/30/2015 01/05/2016 Inactive spironolactone 25 mg tablet RxNorm: 821699 1 Tablet(s) PO daily 07/28/2015 07/21/2016 Inactive spironolactone 25 mg tablet RxNorm: 276390 1 Tablet(s) PO daily 07/22/2015 07/27/2015 Inactive clonazepam 1 mg tablet RxNorm: 803980 1 Tablet(s) PO QHS 05/23/2015 08/28/2015 Inactive losartan 25 mg tablet RxNorm: 235168 1 Tablet(s) PO daily 02/19/2015 03/20/2015 Inactive Flonase Allergy Relief 50 mcg/actuation nasal spray,suspension RxNorm: 1 [place] NASAL BID 02/19/2015 04/26/2016 Inactive [SAVINGS FOR NON-COVERED DRUGS -- BIN:[id number], PCN: ASPROD1, Group: XXXXX, ID# XXXXXXX, Questions: . THIS IS NOT INSURANCE.] Flomax 0.4 mg capsule RxNorm: 875713 1 Capsule(s) PO QPM 02/19/2015 09/15/2015 Inactive [SAVINGS FOR NON-COVERED DRUGS -- BIN:466057, PCN: ASPROD1, Group: XXXXX, ID# XXXXXXX, Questions: . THIS IS NOT INSURANCE.] citalopram 20 mg tablet RxNorm: 196290 1 Tablet(s) PO daily 02/19/2015 03/20/2015 Inactive atenolol 25 mg tablet RxNorm: 469562 1 Tablet(s) PO daily 02/19/2015 03/20/2015 Inactive Lipitor 20 mg tablet RxNorm: 604677 1 Tablet(s) PO daily 02/19/2015 03/20/2015 Inactive vitamin B complex oral RxNorm: 77299 oral No Start Date Active Lipitor oral RxNorm: 20769 oral No Start Date Active Aleve 220 mg tablet RxNorm: 483836 Tablet(s) PO as needed No Start Date Active Vitamin D3 1,000 unit capsule RxNorm: 445883 2 Capsule(s) PO daily No Start Date Active Centrum Complete oral RxNorm: 39099 oral No Start Date Active glucosamine HCl 1,500 mg tablet RxNorm: 628133 1 Tablet(s) with 1200 mg chrondroitin PO daily No Start Date 08/01/2018 Inactive Claritin-D 24 Hour oral RxNorm: 312091 oral No Start Date 01/07/2019 Inactive ranitidine 150 mg tablet RxNorm: 679290 1 Tablet(s) PO TID No Start Date 12/11/2015 Inactive [place] 5 mg-325 mg tablet RxNorm: 003636 1-2 Tablet(s) PO Q6 as needed No Start Date 12/10/2015 Inactive krill oil oral RxNorm: 15717 oral No Start Date 08/07/2018 Inactive Vitamin B-6 100 mg tablet RxNorm: 692603 1 Tablet(s) PO TID No Start Date 08/31/2017 Inactive spironolactone 25 mg tablet RxNorm: 631497 1 Tablet(s) PO daily No Start Date 07/21/2015 Inactive Vitamin D3 oral RxNorm: 2418 oral No Start Date 02/17/2016 Inactive clonazepam 1 mg tablet RxNorm: 708218 1 Tablet(s) PO daily No Start Date 05/22/2015 Inactive Glucosamine oral RxNorm: 4845 oral No Start Date 04/26/2016 Inactive cetirizine 10 mg tablet RxNorm: 8018835 1 Tablet(s) PO daily No Start Date 01/07/2019 Inactive losartan 50 mg tablet RxNorm: 791976 1 Tablet(s) PO daily No Start Date 05/23/2018 Inactive Plavix 75 mg tablet RxNorm: 760081 1 Tablet(s) PO every other day No Start Date 12/11/2015 Inactive Osteo Bi-Flex oral RxNorm: 9950008 oral No Start Date 09/01/2017 Inactive iron ER 159 mg (45 mg iron) tablet,extended release RxNorm: 082756 1 Tablet(s) PO BID No Start Date 04/26/2016 Inactive amlodipine 5 mg tablet RxNorm: 268560 1 Tablet(s) PO daily No Start Date 01/05/2016 Inactive aspirin 81 mg tablet,delayed release RxNorm: 474353 1 Tablet(s) PO daily No Start Date 05/09/2018 Inactive dexamethasone 0.5 mg tablet RxNorm: 943903 1 Tablet(s) PO No Start Date 12/11/2015 Inactive Vitamin B-12 1,000 mcg tablet RxNorm: 677957 6 Tablet(s) PO every other day No Start Date 06/11/2018 Inactive colchicine 0.6 mg tablet RxNorm: 481008 Tablet(s) PO 1.2 mg for the first dose and 0.6 mg an hour after No Start Date 12/14/2015 Inactive nitroglycerin 0.4 mg sublingual tablet RxNorm: 656471 1 Tablet(s) SL x3 in 15 min as needed No Start Date 12/11/2015 Inactive Fish Oil 1,000 mg capsule RxNorm: 1 Capsule(s) PO daily No Start Date 04/26/2016 Inactive Ecotrin Low Strength 81 mg tablet,enteric coated RxNorm: 9488653 1 Tablet(s) PO daily No Start Date 09/27/2016 Inactive Medication Administered Medication Codes Instructions Start Date Status Kenalog 40 mg/mL suspension for injection RxNorm: 7417425 Milliliter 06/12/2018 No longer Active Immunizations Vaccine [...] 30.4 pg 10/20/2018 Cbc With Differential Ord2 [place]% 5.7 % 10/20/2018 Cbc With Differential Ord2 [...] 1.69 K/ul 10/20/2018 Cbc With Differential Ord2 [place] ABS# 0.6 K/ul 10/20/2018 Cbc With Differential Ord2 Eos ABS# 0.0 K/ul 10/20/2018 Cbc With Differential Ord2 Baso ABS# 0.0 K/ul 10/20/2018 Comp Metabolic Too671 NA 140 mEq/L 10/20/2018 Comp Metabolic Ais451 K 4.0 mEq/L 10/20/2018 Comp Metabolic Kgy818 CL 104 mEq/L 10/20/2018 Comp Metabolic Jjf510 CO2 28.0 mEq/L 10/20/2018 Comp Metabolic Tth730 ANION GAP 12 10/20/2018 Comp Metabolic Zeu146 GLUCOSE 113 mg/dL 10/20/2018 Comp Metabolic Rfs493 Creat 1.0 mg/dL 10/20/2018 Comp Metabolic Zfh968 eGFR 75 ml/min/1.73m2 10/20/2018 Comp Metabolic Nqr067 BUN 18 mg/dL 10/20/2018 Comp Metabolic Rrb210 B/C Ratio 17.8 Ratio 10/20/2018 Comp Metabolic Sil569 CALCIUM 9.8 mg/dL 10/20/2018 Comp Metabolic Btv328 ALK PHOS 70 U/L 10/20/2018 Comp Metabolic Bzd155 AST(SGOT) 15 U/L 10/20/2018 Comp Metabolic Nxh131 ALT(SGPT) 18 U/L 10/20/2018 Comp Metabolic Xam838 BILI T 1.1 mg/dL 10/20/2018 Comp Metabolic Ici307 ALBUMIN 4.4 g/dL 10/20/2018 Comp Metabolic Lfb031 TPRO 6.9 g/dL 10/20/2018 Comp Metabolic Blb991 GLOB 2.5 g/dL 10/20/2018 Comp Metabolic Nmt646 A/G Ratio 1.7 Ratio 10/20/2018 Comp Metabolic Lya761 Osmo 282 mOsmo 10/20/2018 Urinalysis Ord28 U-Color [...] 29.0 pg 07/14/2018 Cbc With Differential Ord2 [place]% 7.5 % 07/14/2018 Cbc With Differential Ord2 [...] 1.92 K/ul 07/14/2018 Cbc With Differential Ord2 [place] ABS# 0.4 K/ul 07/14/2018 Cbc With Differential Ord2 Eos ABS# 0.2 K/ul 07/14/2018 Cbc With Differential Ord2 Baso ABS# 0.0 K/ul 07/14/2018 Renal And803 NA 140 mEq/L 07/14/2018 Renal Wkz820 K 4.2 mEq/L 07/14/2018 Renal Hbu032 CL 103 mEq/L 07/14/2018 Renal Tqi730 CO2 29.0 mEq/L 07/14/2018 Renal Uff228 ANION GAP 12 07/14/2018 Renal Cbg069 Osmo 280 mOsmo 07/14/2018 Renal Ohk802 GLUCOSE 95 mg/dL 07/14/2018 Renal Lfb991 BUN 15 mg/dL 07/14/2018 Renal Zyp918 Creat 1.2 mg/dL 07/14/2018 Renal Zfn621 eGFR 64 ml/min/1.73m2 07/14/2018 Renal Rwm138 B/C Ratio 12.8 Ratio 07/14/2018 Renal Rtb428 CALCIUM 9.6 mg/dL 07/14/2018 Renal Gua777 PHOS 3.2 mg/dL 07/14/2018 Renal Sho252 ALBUMIN 4.4 g/dL 07/14/2018 Magnesium Ord90 Mag [...] 29.7 pg 06/08/2018 Cbc With Differential Ord2 [place]% 8.7 % 06/08/2018 Cbc With Differential Ord2 [...] 2.14 K/ul 06/08/2018 Cbc With Differential Ord2 [place] ABS# 0.5 K/ul 06/08/2018 Cbc With Differential Ord2 Eos ABS# 0.2 K/ul 06/08/2018 Cbc With Differential Ord2 Baso ABS# 0.0 K/ul 06/08/2018 Comp Metabolic Fzh269 NA 139 mEq/L 06/08/2018 Comp Metabolic Han685 K 4.6 mEq/L 06/08/2018 Comp Metabolic Nic038 CL 105 mEq/L 06/08/2018 Comp Metabolic Kgw712 CO2 26.0 mEq/L 06/08/2018 Comp Metabolic Cuj617 ANION GAP 13 06/08/2018 Comp Metabolic Odr878 GLUCOSE 95 mg/dL 06/08/2018 Comp Metabolic Tym940 Creat 1.2 mg/dL 06/08/2018 Comp Metabolic Cmm464 eGFR 59 ml/min/1.73m2 06/08/2018 Comp Metabolic Mbt332 BUN 12 mg/dL 06/08/2018 Comp Metabolic Sex808 B/C Ratio 9.7 Ratio 06/08/2018 Comp Metabolic Jol920 CALCIUM 9.9 mg/dL 06/08/2018 Comp Metabolic Adu323 ALK PHOS 70 U/L 06/08/2018 Comp Metabolic Ril197 AST(SGOT) 21 U/L 06/08/2018 Comp Metabolic Vkc819 ALT(SGPT) 20 U/L 06/08/2018 Comp Metabolic Wlk602 BILI T 1.0 mg/dL 06/08/2018 Comp Metabolic Gso760 ALBUMIN 4.5 g/dL 06/08/2018 Comp Metabolic Uvr275 TPRO 7.2 g/dL 06/08/2018 Comp Metabolic Lzz333 GLOB 2.8 g/dL 06/08/2018 Comp Metabolic Iny022 A/G Ratio 1.6 Ratio 06/08/2018 Comp Metabolic Ule037 Osmo 277 mOsmo 06/08/2018 Cbc With Differential [...] 30.6 pg 05/10/2018 Cbc With Differential Ord2 [place]% 6.5 % 05/10/2018 Cbc With Differential Ord2 [...] 1.94 K/ul 05/10/2018 Cbc With Differential Ord2 [place] ABS# 0.4 K/ul 05/10/2018 Cbc With Differential [...] Ord30 C/HDL 4.2 Ratio 01/26/2018 Comp Metabolic Elo246 NA 138 mEq/L 01/26/2018 Comp Metabolic Dyp328 K 4.2 mEq/L 01/26/2018 Comp Metabolic Yku690 CL 105 mEq/L 01/26/2018 Comp Metabolic Wdc434 CO2 23.0 mEq/L 01/26/2018 Comp Metabolic Gsk745 ANION GAP 14 01/26/2018 Comp Metabolic Tch946 GLUCOSE 89 mg/dL 01/26/2018 Comp Metabolic Gft838 Creat 1.1 mg/dL 01/26/2018 Comp Metabolic Iem155 eGFR 70 ml/min/1.73m2 01/26/2018 Comp Metabolic Lan735 BUN 18 mg/dL 01/26/2018 Comp Metabolic Tyt283 B/C Ratio 16.8 Ratio 01/26/2018 Comp Metabolic Ugn691 CALCIUM 9.2 mg/dL 01/26/2018 Comp Metabolic Jno779 ALK PHOS 67 U/L 01/26/2018 Comp Metabolic Cam799 AST(SGOT) 31 U/L 01/26/2018 Comp Metabolic Plx296 ALT(SGPT) 23 U/L 01/26/2018 Comp Metabolic Dkg434 BILI T 1.7 mg/dL 01/26/2018 Comp Metabolic Oun543 ALBUMIN 3.9 g/dL 01/26/2018 Comp Metabolic Wbq839 TPRO 6.7 g/dL 01/26/2018 Comp Metabolic Amk392 GLOB 2.8 g/dL 01/26/2018 Comp Metabolic Nnc500 A/G Ratio 1.4 Ratio 01/26/2018 Comp Metabolic Gfn164 Osmo 277 mOsmo 01/26/2018 Cbc With Differential [...] 30.7 pg 01/26/2018 Cbc With Differential Ord2 [place]% 7.1 % 01/26/2018 Cbc With Differential Ord2 [...] 2.40 K/ul 01/26/2018 Cbc With Differential Ord2 [place] ABS# 0.5 K/ul 01/26/2018 Cbc With Differential Ord2 Eos ABS# 0.2 K/ul 01/26/2018 Cbc With Differential Ord2 Baso ABS# 0.0 K/ul 01/26/2018 Tsh Ord6 TSH (3rd IS) 1.81 uIU/mL 01/26/2018 Testosterone Nmt426 Testo 370.3 ng/dL 01/26/2018 C A/B FLU [id number] Influenza A Scr Negative 12/08/2017 C A/B FLU 8798000 Influenza B Scr Negative 12/08/2017 C A/B FLU [id number] Influenza Intrp B AG:PRID:PT:NOSE:NOM:IF See Footnote 12/08/2017 [...] 30.8 pg 04/11/2017 Cbc With Differential Ord2 [place]% 8.1 % 04/11/2017 Cbc With Differential Ord2 [...] 1.91 K/ul 04/11/2017 Cbc With Differential Ord2 [place] ABS# 0.5 K/ul 04/11/2017 Cbc With Differential Ord2 Eos ABS# 0.2 K/ul 04/11/2017 Cbc With Differential Ord2 Baso ABS# 0.0 K/ul 04/11/2017 Comp Metabolic Nyi673 NA 140 mEq/L 04/11/2017 Comp Metabolic Gfs963 K 4.1 mEq/L 04/11/2017 Comp Metabolic Fhf938 CL 105 mEq/L 04/11/2017 Comp Metabolic Fkr911 CO2 26.0 mEq/L 04/11/2017 Comp Metabolic Ujc514 ANION GAP 13 04/11/2017 Comp Metabolic Wyd975 GLUCOSE 88 mg/dL 04/11/2017 Comp Metabolic Seh767 Creat 1.1 mg/dL 04/11/2017 Comp Metabolic Dcf066 eGFR 66 ml/min/1.73m2 04/11/2017 Comp Metabolic Llc057 BUN 18 mg/dL 04/11/2017 Comp Metabolic Azl001 B/C Ratio 15.9 Ratio 04/11/2017 Comp Metabolic Kzt823 CALCIUM 9.0 mg/dL 04/11/2017 Comp Metabolic Ley309 ALK PHOS 72 U/L 04/11/2017 Comp Metabolic Zwl423 AST(SGOT) 22 U/L 04/11/2017 Comp Metabolic Ain123 ALT(SGPT) 26 U/L 04/11/2017 Comp Metabolic Har477 BILI T 1.0 mg/dL 04/11/2017 Comp Metabolic Zpm618 ALBUMIN 4.0 g/dL 04/11/2017 Comp Metabolic Ycm504 TPRO 6.4 g/dL 04/11/2017 Comp Metabolic Nye939 GLOB 2.4 g/dL 04/11/2017 Comp Metabolic Siq280 A/G Ratio 1.6 Ratio 04/11/2017 Comp Metabolic Nnq019 Osmo 281 mOsmo 04/11/2017 Vitamin D 25 Oh Orm1934 VITAMIN D, 25 HYDROXY 65.52 ng/mL 05/19/2016 [...] 28.5 pg 05/18/2016 Cbc With Differential Ord2 [place]% 7.2 % 05/18/2016 Cbc With Differential Ord2 [...] 1.80 K/ul 05/18/2016 Cbc With Differential Ord2 [place] ABS# 0.4 K/ul 05/18/2016 Cbc With Differential Ord2 Eos ABS# 0.2 K/ul 05/18/2016 Cbc With Differential Ord2 Baso ABS# 0.0 K/ul 05/18/2016 Magnesium Ord90 Mag 2.0 mg/dL 05/18/2016 Renal Yvj830 NA 139 mEq/L 05/18/2016 Renal Fvp868 K 4.0 mEq/L 05/18/2016 Renal Nad163 CL 104 mEq/L 05/18/2016 Renal Dby083 CO2 27.0 mEq/L 05/18/2016 Renal Gfa683 ANION GAP 12 05/18/2016 Renal Afz386 Osmo 279 mOsmo 05/18/2016 Renal Jts535 GLUCOSE 91 mg/dL 05/18/2016 Renal Qwc215 BUN 18 mg/dL 05/18/2016 Renal Dwj240 Creat 1.3 mg/dL 05/18/2016 Renal Bys847 eGFR 59 ml/min/1.73m2 05/18/2016 Renal Gat224 B/C Ratio 14.3 Ratio 05/18/2016 Renal Xtz786 CALCIUM 9.3 mg/dL 05/18/2016 Renal Poh620 PHOS 3.2 mg/dL 05/18/2016 Renal Gkl743 ALBUMIN 4.2 g/dL 05/18/2016 Random Urine Protein/Creatinine Ratio Aso1161 U Prot 15.0 mg/dl 05/18/2016 Random Urine Protein/Creatinine Ratio Ykv1636 U CREAT 141.0 mg/dL 05/18/2016 Random Urine Protein/Creatinine Ratio Xro1798 R MTP/Creat Ratio 0.11 05/18/2016 Urinalysis Ord28 [...] 28.5 pg 02/19/2016 Cbc With Differential Ord2 [place]% 9.5 % 02/19/2016 Cbc With Differential Ord2 [...] 1.91 K/ul 02/19/2016 Cbc With Differential Ord2 [place] ABS# 0.5 K/ul 02/19/2016 Cbc With Differential Ord2 Eos ABS# 0.2 K/ul 02/19/2016 Cbc With Differential Ord2 Baso ABS# 0.0 K/ul 02/19/2016 Cbc With Differential Ord2 New Analyzer Notice Please note new ref ranges starting 10-29-2015 due to implemntation of new five part differential hematolgy analyzer. 02/19/2016 Tsh Ord6 hTSH II 2.10 uIU/mL 02/19/2016 Comp Metabolic Kho616 NA 138 mEq/L 02/19/2016 Comp Metabolic Zlm166 K 3.8 mEq/L 02/19/2016 Comp Metabolic Wsu707 CL 103 mEq/L 02/19/2016 Comp Metabolic Vnv946 CO2 28.0 mEq/L 02/19/2016 Comp Metabolic Tti413 ANION GAP 11 02/19/2016 Comp Metabolic Fza398 GLUCOSE 94 mg/dL 02/19/2016 Comp Metabolic Rrr541 Creat 1.0 mg/dL 02/19/2016 Comp Metabolic Exk772 eGFR 75 ml/min/1.73m2 02/19/2016 Comp Metabolic Ipt074 BUN 18 mg/dL 02/19/2016 Comp Metabolic Bdp585 B/C Ratio 17.6 Ratio 02/19/2016 Comp Metabolic Dzu836 CALCIUM 9.6 mg/dL 02/19/2016 Comp Metabolic Vel103 ALK PHOS 93 U/L 02/19/2016 Comp Metabolic Jrn349 AST(SGOT) 23 U/L 02/19/2016 Comp Metabolic Xhd380 ALT(SGPT) 19 U/L 02/19/2016 Comp Metabolic Tje143 BILI T 0.8 mg/dL 02/19/2016 Comp Metabolic Lfn337 ALBUMIN 4.1 g/dL 02/19/2016 Comp Metabolic Ixd642 TPRO 6.8 g/dL 02/19/2016 Comp Metabolic Lcq892 GLOB 2.7 g/dL 02/19/2016 Comp Metabolic Kkv173 A/G Ratio 1.5 Ratio 02/19/2016 Comp Metabolic Lct794 Osmo 277 mOsmo 02/19/2016 Uric Acid Ord77 Uric A 6.0 mg/dL 02/19/2016 Total Psa Ord10 PSA 0.82 ng/mL 02/19/2016 Comp Metabolic Rud346 NA 140 mEq/L 12/16/2015 Comp Metabolic Rtm758 K 4.0 mEq/L 12/16/2015 Comp Metabolic Vnx430 CL 105 mEq/L 12/16/2015 Comp Metabolic Qan166 CO2 24.0 mEq/L 12/16/2015 Comp Metabolic Yyg989 ANION GAP 15 12/16/2015 Comp Metabolic Jcr761 GLUCOSE 85 mg/dL 12/16/2015 Comp Metabolic Iqi401 Creat 1.2 mg/dL 12/16/2015 Comp Metabolic Zmz344 eGFR 65 ml/min/1.73m2 12/16/2015 Comp Metabolic Esg273 BUN 14 mg/dL 12/16/2015 Comp Metabolic Xxi835 B/C Ratio 12.1 Ratio 12/16/2015 Comp Metabolic Yod525 CALCIUM 9.1 mg/dL 12/16/2015 Comp Metabolic Zir271 ALK PHOS 162 U/L 12/16/2015 Comp Metabolic Yxf396 AST(SGOT) 14 U/L 12/16/2015 Comp Metabolic Xfi561 ALT(SGPT) 17 U/L 12/16/2015 Comp Metabolic Vvx467 BILI T 1.0 mg/dL 12/16/2015 Comp Metabolic Efv221 ALBUMIN 3.4 g/dL 12/16/2015 Comp Metabolic Bej206 TPRO 6.2 g/dL 12/16/2015 Comp Metabolic Zwq442 GLOB 2.9 g/dL 12/16/2015 Comp Metabolic Hmf598 A/G Ratio 1.2 Ratio 12/16/2015 Comp Metabolic Uby746 Osmo 279 mOsmo 12/16/2015 Uric Acid Ord77 [...] 29.9 % 12/16/2015 Cbc With Differential Ord2 [place]% 7.5 % 12/16/2015 Cbc With Differential Ord2 [...] 1.52 K/ul 12/16/2015 Cbc With Differential Ord2 [place] ABS# 0.4 K/ul 12/16/2015 Cbc With Differential [...] C/HDL 4.0 Ratio 07/21/2015 Urine Protein 24Hr Fag733 U Prot 5.1 mg/dl 05/16/2015 Urine Protein 24Hr Oal283 U Prot24 71.5 mg/24hr 05/16/2015 Total Volume Urine Dgk406 TV/24hr 1400 ml 05/16/2015 Total Psa Ord10 PSA 0.70 ng/mL 05/15/2015 Renal Kwj883 NA 135 mEq/L 05/15/2015 Renal Emu699 K 3.9 mEq/L 05/15/2015 Renal Prk634 CL 101 mEq/L 05/15/2015 Renal Jls743 CO2 27.0 mEq/L 05/15/2015 Renal Cgh921 ANION GAP 11 05/15/2015 Renal Ssb767 Osmo 274 mOsmo 05/15/2015 Renal Scc525 GLUCOSE 132 mg/dL 05/15/2015 Renal Lpc901 BUN 19 mg/dL 05/15/2015 Renal Dow296 Creat 1.1 mg/dL 05/15/2015 Renal Bxt736 eGFR 67 ml/min/1.73m2 05/15/2015 Renal Exg641 B/C Ratio 17.0 Ratio 05/15/2015 Renal Cji428 CALCIUM 9.6 mg/dL 05/15/2015 Renal Ehv715 PHOS 3.0 mg/dL 05/15/2015 Renal Swm810 ALBUMIN 4.3 g/dL 05/15/2015 Cbc With Differential [...] Formatting Model/CDA Sections, Assigned to/Sharee Ramirez CPT-4: [id number] 07/05/2018 THER/PROPH/DIAG INJ SC/IM CPT-4: 66918 06/12/2018 TRIAMCINOLONE ACET INJ NOS CPT-4: J3301 06/12/2018 PPPS, SUBSEQ VISIT CPT- 4: G0439 08/03/2017 ADMIN INFLUENZA VIRUS VAC CPT-4: G0008 06/28/2016 FLU VACC PRSV FREE INC ANTIG CPT-4: 09233 06/28/2016 TENIVAC TD VACCINE NO PRSRV 7/> IM CPT-4: 13939 06/28/2016 OCCULT BLOOD FECES CPT- 4: 75322 02/19/2015 Vital Signs Date Vital 2019 Blood Pressure 1: 136/74 Code: 8480-6 BMI: 28.6 Code: 27693-9 Heart Rate 1: 97 bpm Height: 6' SpO2: 94% Weight: 211 lbs 01/08/2019 Blood Pressure 1: 128/86 Code: 8480-6 BMI: 28.6 Code: 71084-1 Heart Rate 1: 96 bpm Height: 6' SpO2: 97% Weight: 211 lbs 12/25/2018 Blood Pressure 1: 112/62 Code: 8480-6 BMI: 28.6 Code: 97132-3 Heart Rate 1: 76 bpm Height: 6' SpO2: 96% Weight: 211 lbs 12/13/2018 Blood Pressure 1: 114/78 Code: 8480-6 BMI: 29.4 Code: 29894-2 Heart Rate 1: 73 bpm Height: 6' SpO2: 93% Weight: 217 lbs 11/27/2018 Blood Pressure 1: 110/70 Code: 8480-6 BMI: 28.5 Code: 98651-2 Heart Rate 1: 90 bpm Height: 6' SpO2: 95% Temperature: 36.8 (C) / 98.2 (F) Weight: 210 lbs 8 oz 09/26/2018 Blood Pressure 1: 130/80 Code: 8480-6 BMI: 29.6 Code: 11479-8 Heart Rate 1: 98 bpm Height: 6' SpO2: 93% Weight: 218 lbs 08/10/2018 BMI: 29.4 Code: 39517-4 Height: 6' Weight: 217 lbs 07/26/2018 Blood Pressure 1: 116/72 Code: 8480-6 BMI: 29.4 Code: 87466-0 Heart Rate 1: 102 bpm Height: 6' SpO2: 96% Weight: 217 lbs 07/05/2018 Blood Pressure 1: 132/72 Code: 8480-6 Heart Rate 1: 60 bpm SpO2: 95% 06/12/2018 Blood Pressure 1: 120/78 Code: 8480-6 BMI: 29.6 Code: 22561-3 Heart Rate 1: 103 bpm Height: 6' SpO2: 96% Weight: 218 lbs 05/10/2018 Blood Pressure 1: 114/68 Code: 8480-6 BMI: 29.4 Code: 70836-2 Heart Rate 1: 92 bpm Height: 6' SpO2: 97% Weight: 217 lbs 03/27/2018 Blood Pressure 1: 126/74 Code: 8480-6 BMI: 30.1 Code: 36485-9 Heart Rate 1: 103 bpm Height: 6' SpO2: 96% Weight: 222 lbs 01/25/2018 Blood Pressure 1: 122/70 Code: 8480-6 Blood Pressure 2: 126/73 Code: 8480-6 Heart Rate 1: 63 bpm SpO2: 94% 01/24/2018 Blood Pressure 1: 110/72 Code: 8480-6 BMI: 29.7 Code: 00525-5 Heart Rate 1: 88 bpm Height: 6' SpO2: 95% Weight: 219 lbs 12/08/2017 Blood Pressure 1: 12068 Code: 8480-6 BMI: 30.0 Code: 09740-3 Heart Rate 1: 91 bpm Height: 6' SpO2: 96% Temperature: 36.7 (C) / 98.1 (F) Weight: 221 lbs 10/27/2017 Blood Pressure 1: 124/76 Code: 8480-6 BMI: 30.1 Code: 14523-8 Heart Rate 1: 69 bpm Height: 6' SpO2: 95% Weight: 222 lbs 09/29/2017 Blood Pressure 1: 118/66 Code: 8480-6 BMI: 29.9 Code: 62141-7 Heart Rate 1: 81 bpm Height: 6' SpO2: 95% Weight: 220 lbs 8 oz 09/01/2017 Blood Pressure 1: 122/82 Code: 8480-6 BMI: 29.6 Code: 88854-4 Heart Rate 1: 75 bpm Height: 6' SpO2: 97% Weight: 218 lbs 08/03/2017 Blood Pressure 1: 120/68 Code: 8480-6 Heart Rate 1: 68 bpm Height: 6' SpO2: 94% Waist Measure (cm): 97 cm 04/26/2017 Blood Pressure 1: 122/72 Code: 8480-6 BMI: 29.4 Code: 16821-0 Heart Rate 1: 85 bpm Height: 6' SpO2: 92% Weight: 217 lbs 01/25/2017 Blood Pressure 1: 118/78 Code: 8480-6 BMI: 29.4 Code: 47982-0 Heart Rate 1: 72 bpm Height: 6' SpO2: 94% Temperature: 36.9 (C) / 98.5 (F) Weight: 217 lbs 10/26/2016 Blood Pressure 1: 152/86 Code: 8480-6 BMI: 29.7 Code: 74089-0 Heart Rate 1: 58 bpm Height: 6' Weight: 219 lbs 09/27/2016 Blood Pressure 1: 138/80 Code: 8480-6 BMI: 29.4 Code: 64567-1 Heart Rate 1: 52 bpm Height: 6' SpO2: 98% Weight: 217 lbs 06/28/2016 Blood Pressure 1: 128/86 Code: 8480-6 BMI: 29.6 Code: 92656-1 Heart Rate 1: 69 bpm Height: 6' SpO2: 93% Weight: 218 lbs 04/27/2016 Blood Pressure 1: 11882 Code: 8480-6 BMI: 29.3 Code: 73518-2 Heart Rate 1: 85 bpm Height: 6' SpO2: 98% Weight: 216 lbs 02/17/2016 Blood Pressure 1: 132/80 Code: 8480-6 BMI: 28.8 Code: 54106-0 Heart Rate 1: 94 bpm Height: 6' SpO2: 98% Weight: 212 lbs 01/20/2016 Blood Pressure 1: 120/70 Code: 8480-6 BMI: 29.7 Code: 09719-0 Heart Rate 1: 87 bpm Height: 6' SpO2: 92% Weight: 219 lbs 01/06/2016 Blood Pressure 1: 122/88 Code: 8480-6 BMI: 28.8 Code: 09986-0 Heart Rate 1: 83 bpm Height: 6' SpO2: 97% Weight: 212 lbs 12/16/2015 Blood Pressure 1: 98/62 Code: 8480-6 Heart Rate 1: 62 bpm Height: 6' SpO2: 90% Weight: 11/27/2015 Blood Pressure 1: 90/64 Code: 8480-6 Blood Pressure 1: 110/80 Code: 8480-6 Heart Rate 1: 91 bpm Height: 6' SpO2: 92% Weight: 07/30/2015 Blood Pressure 1: 112/82 Code: 8480-6 BMI: 30.5 Code: 70292-2 Heart Rate 1: 82 bpm Height: 6' SpO2: 92% Weight: 225 lbs 06/09/2015 Blood Pressure 1: 130/76 Code: 8480-6 BMI: 31.1 Code: 50393-8 Heart Rate 1: 65 bpm Height: 6' SpO2: 96% Weight: 229 lbs 04/29/2015 Blood Pressure 1: 118/78 Code: 8480-6 BMI: 30.7 Code: 85036-3 Heart Rate 1: 70 bpm Height: 6' Weight: 226 lbs 02/19/2015 Blood Pressure 1: 118/70 Code: 8480-6 BMI: 29.7 Code: 74061-1 Heart Rate 1: 68 bpm Height: 6' [...] III Diagnosis: Pleurodynia[ICD10: R07.81] Mady Butcher MD, [facility] CPT-4: 69621 2019 [id number]) 98238 EST. PATIENT, LEVEL III Diagnosis: Other allergic rhinitis[ICD10: J30.89] Merline Butcher MD, [facility] CPT-4: 50989 01/08/2019 57567 EST. PATIENT, LEVEL IV Diagnosis: Other fatigue[ICD10: R53.83] Diagnosis: Obstructive sleep apnea (adult) (pediatric)[ICD10: G47.33] Diagnosis: Other malaise[ICD10: R53.81] Mady Butcher MD, [facility] CPT-4: 85559 12/25/2018 [id number]) 44173 EST. PATIENT, LEVEL IV Diagnosis: Shortness of breath[ICD10: R06.02] Diagnosis: Other fatigue[ICD10: R53.83] Diagnosis: Obstructive sleep apnea (adult) (pediatric)[ICD10: G47.33] Diagnosis: Other malaise[ICD10: R53.81] Lesley Butcher MD, [facility] CPT-4: 93189 12/13/2018 [id number]) 26958 EST. PATIENT, LEVEL IV Diagnosis: Shortness of breath[ICD10: R06.02] Diagnosis: Dizziness and giddiness[ICD10: R42] Diagnosis: Other fatigue[ICD10: R53.83] Diagnosis: Essential (primary) hypertension[ICD10: I10] Diagnosis: Muscle weakness (generalized)[ICD10: M62.81] Merline Butcher MD [facility] CPT-4: 50711 11/27/2018 ([id number]) 76028 EST. PATIENT, LEVEL IV Diagnosis: Essential (primary) hypertension[ICD10: I10] Diagnosis: Vertigo of central origin, right ear[ICD10: H81.41] Diagnosis: Low back pain[ICD10: M54.5] Lesley Butcher MD [facility] CPT-4: 90209 09/26/2018 ([id number]) 98328 EST. PATIENT, LEVEL III Diagnosis: Dizziness and giddiness[ICD10: R42] Diagnosis: Vertigo of central origin, right ear[ICD10: H81.41] Diagnosis: Essential (primary) hypertension[ICD10: I10] Lesley Butcher MD [facility] CPT-4: 32564 07/26/2018 ([id number]) 61138 EST. PATIENT, LEVEL III Diagnosis: Essential (primary) hypertension[ICD10: I10] Lesley Butcher MD [facility] CPT-4: 43504 06/12/2018 ([id number]) 06540 EST. PATIENT, LEVEL IV Diagnosis: Other iron deficiency anemias[ICD10: D50.8] Diagnosis: Weakness[ICD10: R53.1] Diagnosis: Diverticulosis of large intestine without perforation or abscess with bleeding[ICD10: K57.31] Lesley Butcher MD [facility] CPT-4: 27488 05/10/2018 ([id number]) 46452 EST. PATIENT, LEVEL IV Diagnosis: Essential (primary) hypertension[ICD10: I10] Diagnosis: Major depressive disorder, recurrent, mild[ICD10: F33.0] Diagnosis: Sensorineural hearing loss, bilateral[ICD10: H90.3] Lesley Butcher MD [facility] CPT-4: 95419 03/27/2018 ([id number]) Miscellaneous no charge Diagnosis: Essential (primary) hypertension[ICD10: I10] Mady Butcher MD [facility] CPT-4: 97324 01/25/2018 ([id number]) 82277 EST. PATIENT, LEVEL IV Diagnosis: Essential (primary) hypertension[ICD10: I10] Diagnosis: Sensorineural hearing loss, bilateral[ICD10: H90.3] Diagnosis: Mixed hyperlipidemia[ICD10: E78.2] Diagnosis: Major depressive disorder, recurrent, mild[ICD10: F33.0] Lesley Butcher MD, [facility] CPT-4: 14742 01/24/2018 45300 EST. PATIENT, LEVEL IV Diagnosis: Other malaise[ICD10: R53.81] Diagnosis: Fever, unspecified[ICD10: R50.9] Mady Butcher MD, [facility] CPT-4: 61086 12/08/2017 ([id number]) 01178 EST. PATIENT, LEVEL III Diagnosis: Essential (primary) hypertension[ICD10: I10] Lesley Butcher MD, [facility] CPT-4: 94243 10/27/2017 ([id number]) 11373 EST. PATIENT, LEVEL III Diagnosis: Benign prostatic hyperplasia with lower urinary tract symptoms[ICD10: N40.1] Diagnosis: Dysphagia, pharyngeal phase[ICD10: R13.13] Lesley Butcher MD, [facility] CPT-4: 04205 09/29/2017 ([id number]) 77573 EST. PATIENT, LEVEL IV Diagnosis: Essential (primary) hypertension[ICD10: I10] Diagnosis: Major depressive disorder, recurrent, mild[ICD10: F33.0] Diagnosis: Sensorineural hearing loss, bilateral[ICD10: H90.3] Lesley Butcher MD, [facility] CPT-4: 07246 09/01/2017 ([id number]) 23845 EST. PATIENT, LEVEL IV Diagnosis: Essential (primary) hypertension[ICD10: I10] Diagnosis: Major depressive disorder, recurrent, mild[ICD10: F33.0] Diagnosis: Mixed hyperlipidemia[ICD10: E78.2] Lesley Butcher MD, [facility] CPT- 4: 86104 04/26/2017 ([id number]) 85150 EST. PATIENT, LEVEL IV Diagnosis: Essential (primary) hypertension[ICD10: I10] Diagnosis: Major depressive disorder, recurrent, mild[ICD10: F33.0] Diagnosis: Urge incontinence[ICD10: N39.41] Lesley Butcher MD [facility] CPT-4: 93456 01/25/2017 [id number]) 56654 EST. PATIENT, LEVEL IV Diagnosis: Essential (primary) hypertension[ICD10: I10] Diagnosis: Major depressive disorder, recurrent, mild[ICD10: F33.0] Diagnosis: Urge incontinence[ICD10: N39.41] Lesley Butcher MD, [facility] CPT-4: 96114 10/26/2016 ([id number]) 27995 EST. PATIENT, LEVEL III Diagnosis: Essential (primary) hypertension[ICD10: I10] Diagnosis: Major depressive disorder, recurrent, mild[ICD10: F33.0] Diagnosis: Urge incontinence[ICD10: N39.41] Lesley Butcher MD, [facility] CPT-4: 48036 09/27/2016 ([id number]) 25658 EST. PATIENT, LEVEL IV Diagnosis: Essential (primary) hypertension[ICD10: I10] Diagnosis: Encounter for immunization[ICD10: Z23] Diagnosis: Laceration without foreign body of left forearm, initial encounter[ICD10: S51.812A] Diagnosis: Laceration without foreign body of right forearm, initial encounter[ICD10: S51.811A] Diagnosis: Major depressive disorder, recurrent, mild[ICD10: F33.0] Lesley Butcher MD, [facility] CPT-4: 89232 06/28/2016 [id number]) 21216 EST. 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 PATIENT, LEVEL IV Diagnosis: Weakness[ICD10: R53.1] Diagnosis: Gout, unspecified[ICD10: M10.9] Diagnosis: Hypotension, unspecified[ICD10: I95.9] Lesley Butcher MD, [facility] CPT-4: 57666 12/16/2015 ([id number]) Patient admitted to the hospital from clinic (NO CHARGE) Diagnosis: Hypoxemia[ICD10: R09.02] Diagnosis: Weakness[ICD10: R53.1] Diagnosis: Dyspnea, unspecified[ICD10: R06.00] Mady Butcher MD, [facility] CPT- 4: 84702F 11/27/2015 ([id number]) 68235 EST. PATIENT, LEVEL III Diagnosis: Essential (primary) hypertension[ICD10: I10] Diagnosis: Gastro-esophageal reflux disease without esophagitis[ICD10: K21.9] Lesley Butcher MD, [facility] CPT-4: 59795 07/30/2015 ([id number]) 44656 EST. PATIENT, LEVEL III Diagnosis: ESSENTIAL HYPERTENSION[ICD9: 401.9] Merline Butcher MD, [facility] CPT-4: 67542 06/09/2015 ([id number]) 06934 EST. PATIENT, LEVEL III Diagnosis: ESSENTIAL HYPERTENSION[ICD9: 401.9] Lesley Butcher MD, [facility] CPT- 4: 93104 04/29/2015 ([id number]) OFFICE/OUTPATIENT VISIT NEW Diagnosis: ESSENTIAL HYPERTENSION[ICD9: 401.9] Diagnosis: DEPRESSIVE DISORDER NEC[ICD9: 311] Diagnosis: Enlarged prostate[ICD9: 600.00] Diagnosis: Nasal inflammation due to allergen[ICD9: 477.9] [facility] CPT-4: 23555 02/19/2015 Plan of Care Planned Activity Notes [...] allergy spray. 01/08/2019 Appointment: Merline Rose WPtel: [phone] (30 min) Complex 01/08/2019 Patient Education: Patient Medication Summary Completed 01/08/2019 Visit Plan: Fatigue, shortness of breath, dizziness - pt is to continue PT, pt is to follow up with Dr. Panda and Dr. Harvey and is to notify clinic with any changes in the current treatment plan. 12/25/2018 [phone] (15 min) Moderate 12/25/2018 Patient Education: Patient [...] at 96% 12/13/2018 Appointment: Lesley Butcher WPtel: [phone] [facility] (15 min) Moderate 12/13/2018 Patient Education: Patient Medication Summary Completed 12/13/2018 Visit Plan: OBF-gvtxqrb-ahywbpgma of breath -patient reports worsening of chronic symptoms -will check EKG and cardiac enzymes to evaluate for acute changes -recommend patient follow up with his rn anesthesiology, Dr Sharyn vu -patient, and daughter verbalized understanding of plan. Generalized weakness-discussed PT referral after cleared by cardiology -patient's will call us when she wants to have it set up HTN-no change but monitor at home 11/27/2018 Appointment: Merline Rose WPtel: [phone] [phone] [place] (15 min) Moderate 11/27/2018 Patient [...] Appointment: Lesley Butcher WPtel: [phone] [facility] [place] (15 min) Moderate 09/26/2018 Patient [...] care surrogate. 08/10/2018 Appointment: Mady Dunne WPtel: [facility] [place] [address] - Annual Wellness Visit 08/10/2018 Patient Education: [...] at home. 07/26/2018 Appointment: Lesley Butcher WPtel: [facility] (15 min) Moderate 07/26/2018 Patient Education: [...] dexamethasone. 06/12/2018 Appointment: Lesley Butcher WPtel: [phone] [facility] (15 min) Moderate 06/12/2018 Patient Education: Patient Medication Summary Completed 06/12/2018 Visit Plan: Diverticulosis with recent GI bleeding - improved - continue with supportive care, avoid foods which cause any abdominal pain - monitor symptoms - call if any pain or bleeding recurs. Anemia - check labs today. Weakness - continue with increasing of activity. 05/10/2018 App[facility]ment: [phone] (30 min) Complex 05/10/2018 Patient Education: [...] implant. 03/27/2018 Appointment: [phone] [facility] (15 min) Moderate 03/27/2018 Patient Education: [...] to medications. 01/24/2018 Appointment: Lesley Butcher WPtel: [facility] (15 min) Moderate 01/24/2018 Patient Education: Patient Medication Summary Completed 01/24/2018 Visit Plan: Influenza - pt started on tamiflu - pt to start on anti-inflammatories, tylenol and monitor symptoms. Pt to call if not improving. Pt to alert any close contacts as to illness. 12/08/2017 Appointment: Mady Dunne WPtel: [facility] (30 min) Complex 12/08/2017 Patient Education: [...] at home. 10/27/2017 Appointment: Lesley Butcher WPtel: [facility]8 [facility] (15 min) Moderate 10/27/2017 Patient Education: Patient Medication Summary Completed 10/27/2017 Referral: External, Ordering Provider Referral Initiated 10/12/2017 Visit Plan: BPH - continue with dutasteride and flomax Dysphagia - referral to Dr. Kumar for EGD - question stricture - dysphagia intermittently - hx of stricture. 09/29/2017 Appointment: Lesley Butcher WPtel: [facility]8 [facility] (15 min) Moderate 09/29/2017 Patient Education: Patient Medication Summary Completed 09/29/2017 Care Plan: Referral Order SNOMED-CT : 972936601 Pending 09/29/2017 Visit Plan: Hypertension - well [...] recommended patient to have an evaluation at [facility] to see if he has potential for cochlear implant. 09/01/2017 Appointment: [phone] [facility] (15 min) Moderate 09/01/2017 Patient Education: Patient Medication Summary Completed 09/01/2017 Care Plan: Referral Order SNOMED-CT : [id number] Pending 09/01/2017 Visit Plan: Medicare Exam - [...] care surrogate. 08/03/2017 App[facility]ment[phone] M[facility] - Welcome to Medicare visit 08/03/2017 [...] medications. 04/26/2017 Appointment: Lesley Butcher WPtel: [phone] [facility] (15 min) Moderate 04/26/2017 Patient Education: [...] daily. 01/25/2017 Appointment: Lesley Butcher WPtel: [phone] [facility] (30 min) Complex 01/25/2017 Patient Education: [...] [place] 10/26/2016 Appointment: [phone] [facility] (15 min) Moderate 10/26/2016 Patient Education: [...] occur. 09/27/2016 Appointment: [facility] [phone] [facility] (15 min) Moderate 09/27/2016 Patient Education: [...] andrea 06/28/2016 Appointment: [facility]el[facility] [phone] [facility] (15 min) Moderate 06/28/2016 Patient Education: [...] 1 month 02/17/2016 Appointment: Merline Rose WPtel: [address] [place] [phone] (30 min) Complex 02/17/2016 Patient Education: Patient [...] Summary Completed 12/16/2015 Appointment: Lesley Butcher WPtel: [facility] (15 min) Moderate 12/04/2015 Appointment: Lesley Butcher WPtel: [facility] (15 min) Moderate 12/02/2015 Visit Plan: [...] PHARMACY 07/30/2015 Appointment: [facility]el[facility] [phone] [facility] (15 min) Moderate 07/30/2015 Patient Education: [...] at home. 04/29/2015 Appointment: [facility] But[facility]el[facility] [phone] [facility] (15 min) Moderate 04/29/2015 Patient Education: [...] External, Ordering Provider Referral Appointment Requested Referral: [facility] 09/12 Referral info faxed Appointment Requested Referral: [facility] Referral Appointment Requested Instructions Comment [...] planned injection in back and call the director of orthopedics about a biopsy of the lesion on [...] ILLNESS. CHECK CARDIAC ENYZMES AND EKG . UZK-koglkkz-ltkeyqdev of breath -patient reports worsening of chronic symptoms -will check EKG and cardiac enzymes to evaluate for acute changes -recommend patient follow up with his rn anesthesiology, Dr Stokes -patient, and daughter verbalized understanding [...] recommended patient to have an evaluation at [facility] to see if he has [...]
--- OUTSIDE RECORDS SUMMARY | 2019-03-23 19:49 | XMS REPORT | CCD ---
Author Author [facility] Organization [facility] Address [address] [place] [address] Phone Care Team Providers Care Prototype Engineer Manager Name Role Phone PP Unavailable CCM Unavailable Summary Purpose Interface Exchange Insurance Providers Payer name Policy type / Coverage type Covered republican ID Effective Begin Date Effective End Date WPS Medicare Part B Medicare Part B [id number] 2018 Unknown [facility] Medicare Part B [id number] Unknown Family history Father Diagnosis Age At Onset Hypertension Unknown Coronary Artery Disease Unknown Sister Diagnosis Age At Onset Heart disease Unknown Mother Diagnosis Age At Onset Coronary Artery Disease Unknown Hypertension Unknown Social History Social History Element Codes Description Effective Dates Marital status Unknown 02/19/2015 Number of children Unknown 2 02/19/2015 Employment Unknown Retired 02/19/[address]: 475803666 Has never smoked or chewed tobacco 02/19/2015 Alcohol history Unknown occasionally drinks alcohol 02/19/2015 Allergies, Adverse Reactions, Alerts Substance Reaction Codes Entered Date Inactivated Date Status bactrim RxNorm: 969811 12/19/2015 No Inactive Date Active ciprofloxacin RxNorm: 18383 02/18/2015 No Inactive Date Active Past Medical [...] Fill Instructions Requip 0.25 mg tablet RxNorm: 741607 1 Tablet(s) PO QHS 2019 02/13/2019 Active pantoprazole 40 mg tablet,delayed release RxNorm: 415768 TAKE ONE TABLET BY MOUTH ONCE DAILY AT BEDTIME 11/27/2018 No Stop Date Active atorvastatin 40 mg tablet RxNorm: 993458 1 Tablet(s) PO daily 09/26/2018 10/25/2018 Inactive dexamethasone 0.5 mg tablet RxNorm: 265917 TAKE 1 TABLET BY MOUTH ONCE DAILY 08/29/2018 No Stop Date Active clonazepam 1 mg tablet RxNorm: 167487 1/2 Tablet(s) PO QHS 08/24/2018 12/21/2018 Inactive allopurinol 100 mg tablet RxNorm: 099406 TAKE ONE TABLET BY MOUTH ONCE DAILY 08/03/2018 No Stop Date Active citalopram 40 mg tablet RxNorm: 149586 TAKE ONE TABLET BY MOUTH ONCE DAILY 06/13/2018 No Stop Date Active Kenalog 40 mg/mL suspension for injection RxNorm: 8097768 Milliliter(s) Inj 06/12/2018 06/12/2018 Inactive clonazepam 1 mg tablet RxNorm: 577160 1 Tablet(s) PO QHS 06/12/2018 08/23/2018 Inactive losartan 50 mg tablet RxNorm: 092955 1/2 Tablet(s) PO daily 05/24/2018 No Stop Date Active clonazepam 1 mg tablet RxNorm: 924868 1/2 Tablet(s) TAKE ONE TABLET BY MOUTH ONCE DAILY AT BEDTIME AND ONE TABLET THREE TIMES DAILY NEEDED 05/24/2018 06/11/2018 Inactive citalopram 40 mg tablet RxNorm: 016150 1/2 Tablet(s) TAKE ONE TABLET BY MOUTH ONCE DAILY 05/24/2018 09/25/2018 Inactive spironolactone 25 mg tablet RxNorm: 635242 TAKE ONE TABLET BY MOUTH ONCE DAILY 05/22/2018 No Stop Date Active dexamethasone 0.5 mg tablet RxNorm: 207102 TAKE ONE TABLET BY MOUTH ONCE DAILY 02/21/2018 08/28/2018 Inactive Flomax 0.4 mg capsule RxNorm: 864060 TAKE ONE CAPSULE BY MOUTH ONCE DAILY IN THE EVENING 12/19/2017 No Stop Date Active Tamiflu 75 mg capsule RxNorm: 617231 1 Capsule(s) PO BID 12/08/2017 12/12/2017 Inactive clonazepam 1 mg tablet RxNorm: 353950 Tablet(s) TAKE ONE TABLET BY MOUTH ONCE DAILY AT BEDTIME AND ONE TABLET THREE TIMES DAILY NEEDED 11/28/2017 01/26/2018 Inactive pantoprazole 40 mg tablet,delayed release RxNorm: 620690 TAKE ONE TABLET BY MOUTH ONCE DAILY AT BEDTIME 11/07/2017 11/26/2018 Inactive allopurinol 100 mg tablet RxNorm: 925124 TAKE ONE TABLET BY MOUTH ONCE DAILY 10/03/2017 08/02/2018 Inactive pantoprazole 40 mg tablet,delayed release RxNorm: 967198 1 Tablet(s) PO BID 09/01/2017 05/28/2018 Inactive Vitamin B-6 100 mg tablet RxNorm: 016008 1 Tablet(s) PO daily 09/01/2017 06/11/2018 Inactive dutasteride 0.5 mg capsule RxNorm: 811928 1 Capsule(s) PO QPM 09/01/2017 06/11/2018 Inactive spironolactone 25 mg tablet RxNorm: 041126 TAKE ONE TABLET BY MOUTH ONCE DAILY 08/15/2017 05/21/2018 Inactive citalopram 40 mg tablet RxNorm: 548090 TAKE ONE TABLET BY MOUTH ONCE DAILY 08/08/2017 05/04/2018 Inactive dexamethasone 0.5 mg tablet RxNorm: 811206 TAKE ONE TABLET BY MOUTH ONCE DAILY 08/08/2017 11/05/2017 Inactive clonazepam 1 mg tablet RxNorm: 807310 TAKE ONE TABLET BY MOUTH ONCE DAILY AT BEDTIME AND ONE THREE TIMES DAILY NEEDED 05/12/2017 08/08/2017 Inactive clonazepam 1 mg tablet RxNorm: 291297 1 Tablet(s) PO QHS AND 1 TAB PO TID PRN 05/12/2017 05/13/2017 Inactive oxybutynin chloride ER 10 mg tablet,extended release 24 hr RxNorm: 904202 1 Tablet(s) PO daily 04/29/2017 08/02/2017 Inactive dexamethasone 0.5 mg tablet RxNorm: 768423 TAKE ONE TABLET BY MOUTH ONCE DAILY 02/14/2017 04/14/2017 Inactive Flomax 0.4 mg capsule RxNorm: 068273 TAKE ONE CAPSULE BY MOUTH ONCE DAILY IN THE EVENING 02/14/2017 11/10/2017 Inactive pantoprazole 40 mg tablet,delayed release RxNorm: 141785 TAKE ONE TABLET BY MOUTH ONCE DAILY AT BEDTIME 02/14/2017 08/31/2017 Inactive oxybutynin chloride ER 10 mg tablet,extended release 24 hr RxNorm: 783863 1 Tablet(s) PO daily 01/25/2017 04/24/2017 Inactive dexamethasone 0.5 mg tablet RxNorm: 990731 TAKE ONE TABLET BY MOUTH ONCE DAILY 11/10/2016 12/09/2016 Inactive oxybutynin chloride ER 5 mg tablet,extended release 24 hr RxNorm: 595440 1 Tablet(s) PO daily 10/28/2016 10/27/2016 Inactive oxybutynin chloride ER 5 mg tablet,extended release 24 hr RxNorm: 147548 1 Tablet(s) PO daily 10/28/2016 01/24/2017 Inactive Detrol LA 2 mg capsule,extended release RxNorm: 239771 1 Capsule(s) PO QPM 10/26/2016 10/27/2016 Inactive clonazepam 1 mg tablet RxNorm: 518950 1 Tablet(s) PO QHS AND 1 TAB PO TID PRN 10/20/2016 04/17/2017 Inactive dexamethasone 0.5 mg tablet RxNorm: 332214 TAKE ONE TABLET BY MOUTH ONCE DAILY 10/06/2016 11/04/2016 Inactive allopurinol 100 mg tablet RxNorm: 378666 1 Tablet(s) PO daily 09/30/2016 09/24/2017 Inactive Vesicare 5 mg tablet RxNorm: 882842 1 Tablet(s) PO QPM 09/27/2016 12/12/2016 Inactive spironolactone 25 mg tablet RxNorm: 179780 1 Tablet(s) PO daily 08/06/2016 07/31/2017 Inactive citalopram 40 mg tablet RxNorm: 315479 1 Tablet(s) PO daily 06/28/2016 06/22/2017 Inactive Plavix 75 mg tablet RxNorm: 138412 1 Tablet(s) PO daily 04/27/2016 No Stop Date Active iron ER 159 mg (45 mg iron) tablet,extended release RxNorm: 061764 1 Tablet(s) PO daily 04/27/2016 08/31/2017 Inactive dexamethasone 0.5 mg tablet RxNorm: 356116 1/2 Tablet(s) PO daily 04/27/2016 02/20/2018 Inactive allopurinol 100 mg tablet RxNorm: 440780 1 Tablet(s) PO daily 04/27/2016 09/29/2016 Inactive clonazepam 1 mg tablet RxNorm: 931426 1 Tablet(s) PO QHS and 1 tab po TID prn 04/14/2016 10/07/2016 Inactive allopurinol 100 mg tablet RxNorm: 173249 1 Tablet(s) PO daily 02/17/2016 04/26/2016 Inactive citalopram 20 mg tablet RxNorm: 991257 1 Tablet(s) PO daily 01/20/2016 06/27/2016 Inactive Flomax 0.4 mg capsule RxNorm: 008720 1 Capsule(s) PO QPM 01/20/2016 01/13/2017 Inactive [SAVINGS FOR NON-COVERED DRUGS -- BIN:[id number], PCN: ASPROD1, Group: XXXXX, ID# XXXXXXX, Questions: . THIS IS NOT INSURANCE.] pantoprazole 40 mg tablet,delayed release RxNorm: 216972 1 Tablet(s) PO QHS 01/20/2016 01/13/2017 Inactive Colcrys 0.6 mg tablet RxNorm: 784276 1 Tablet(s) PO daily 01/06/2016 03/05/2016 Inactive take daily x 7 days then daily as needed for gout flair colchicine 0.6 mg tablet RxNorm: 649143 1 Tablet(s) PO BID 12/30/2015 01/01/2016 Inactive doxycycline hyclate 100 mg tablet RxNorm: 623569 1 Tablet(s) PO BID 12/19/2015 12/28/2015 Inactive doxycycline hyclate 100 mg tablet RxNorm: 831480 1 Tablet(s) PO BID 12/19/2015 12/18/2015 Inactive allopurinol 100 mg tablet RxNorm: 733477 1 Tablet(s) PO daily 12/16/2015 02/16/2016 Inactive colchicine 0.6 mg tablet RxNorm: 623841 Tablet(s) PO 1.2 mg PO in the morning and 0.6 mg at night for 2 days. 12/16/2015 12/29/2015 Inactive allopurinol 100 mg tablet RxNorm: 380043 1 Tablet(s) PO daily 12/16/2015 12/15/2015 Inactive Protonix 40 mg tablet,delayed release RxNorm: 598243 1 Tablet(s) PO daily 12/16/2015 01/14/2016 Inactive Bactrim DS 800 mg-160 mg tablet RxNorm: 802122 1 Tablet(s) PO BID 12/16/2015 12/18/2015 Inactive colchicine 0.6 mg tablet RxNorm: 758765 Tablet(s) PO 1.2 mg for the first dose and 0.6 mg an hour after 12/15/2015 12/15/2015 Inactive dexamethasone 0.5 mg tablet RxNorm: 127296 1 Tablet(s) PO 12/12/2015 02/09/2016 Inactive Plavix 75 mg tablet RxNorm: 680462 1 Tablet(s) PO every other day 12/12/2015 04/09/2016 Inactive nitroglycerin 0.4 mg sublingual tablet RxNorm: 006803 1 Tablet(s) SL x3 in 15 min as needed 12/12/2015 04/26/2016 Inactive clonazepam 1 mg tablet RxNorm: 817699 1 Tablet(s) PO QHS and 1 tab po TID prn 12/11/2015 12/03/2016 Inactive [place] 5 mg-325 mg tablet RxNorm: 595962 1-2 Tablet(s) PO Q6 as needed 12/11/2015 09/26/2016 Inactive clonazepam 1 mg tablet RxNorm: 810127 1 Tablet(s) PO QHS and 1 tab po TID prn 12/04/2015 12/10/2015 Inactive Flomax 0.4 mg capsule RxNorm: 495359 1 Capsule(s) PO QPM 09/22/2015 01/19/2016 Inactive [SAVINGS FOR NON-COVERED DRUGS -- BIN:[id number], PCN: ASPROD1, Group: XXXXX, ID# XXXXXXX, Questions: . THIS IS NOT INSURANCE.] Flomax 0.4 mg capsule RxNorm: 332517 1 Capsule(s) PO QPM 09/16/2015 09/21/2015 Inactive [SAVINGS FOR NON-COVERED DRUGS -- BIN:[id number], PCN: ASPROD1, Group: XXXXX, ID# XXXXXXX, Questions: . THIS IS NOT INSURANCE.] clonazepam 1 mg tablet RxNorm: 151290 1 Tablet(s) PO QHS 08/29/2015 12/03/2015 Inactive coenzyme Q10 10 mg tablet RxNorm: 160304 1 Tablet(s) PO daily 07/30/2015 01/05/2016 Inactive spironolactone 25 mg tablet RxNorm: 277102 1 Tablet(s) PO daily 07/28/2015 07/21/2016 Inactive spironolactone 25 mg tablet RxNorm: 469414 1 Tablet(s) PO daily 07/22/2015 07/27/2015 Inactive clonazepam 1 mg tablet RxNorm: 796543 1 Tablet(s) PO QHS 05/23/2015 08/28/2015 Inactive losartan 25 mg tablet RxNorm: 043734 1 Tablet(s) PO daily 02/19/2015 03/20/2015 Inactive Flonase Allergy Relief 50 mcg/actuation nasal spray,suspension RxNorm: 1 [place] NASAL BID 02/19/2015 04/26/2016 Inactive [SAVINGS FOR NON-COVERED DRUGS -- BIN:[id number], PCN: ASPROD1, Group: XXXXX, ID# XXXXXXX, Questions: . THIS IS NOT INSURANCE.] Flomax 0.4 mg capsule RxNorm: 692693 1 Capsule(s) PO QPM 02/19/2015 09/15/2015 Inactive [SAVINGS FOR NON-COVERED DRUGS -- BIN:[id number], PCN: ASPROD1, Group: XXXXX, ID# XXXXXXX, Questions: . THIS IS NOT INSURANCE.] citalopram 20 mg tablet RxNorm: 367518 1 Tablet(s) PO daily 02/19/2015 03/20/2015 Inactive atenolol 25 mg tablet RxNorm: 554008 1 Tablet(s) PO daily 02/19/2015 03/20/2015 Inactive Lipitor 20 mg tablet RxNorm: 067387 1 Tablet(s) PO daily 02/19/2015 03/20/2015 Inactive vitamin B complex oral RxNorm: 43037 oral No Start Date Active Lipitor oral RxNorm: 47155 oral No Start Date Active Aleve 220 mg tablet RxNorm: 680586 Tablet(s) PO as needed No Start Date Active Vitamin D3 1,000 unit capsule RxNorm: 560408 2 Capsule(s) PO daily No Start Date Active Centrum Complete oral RxNorm: 50473 oral No Start Date Active glucosamine HCl 1,500 mg tablet RxNorm: 471251 1 Tablet(s) with 1200 mg chrondroitin PO daily No Start Date 08/01/2018 Inactive Claritin-D 24 Hour oral RxNorm: 689549 oral No Start Date 01/07/2019 Inactive ranitidine 150 mg tablet RxNorm: 079228 1 Tablet(s) PO TID No Start Date 12/11/2015 Inactive [place] 5 mg-325 mg tablet RxNorm: 085017 1-2 Tablet(s) PO Q6 as needed No Start Date 12/10/2015 Inactive krill oil oral RxNorm: 06833 oral No Start Date 08/07/2018 Inactive Vitamin B-6 100 mg tablet RxNorm: 252058 1 Tablet(s) PO TID No Start Date 08/31/2017 Inactive spironolactone 25 mg tablet RxNorm: 206214 1 Tablet(s) PO daily No Start Date 07/21/2015 Inactive Vitamin D3 oral RxNorm: 2418 oral No Start Date 02/17/2016 Inactive clonazepam 1 mg tablet RxNorm: 835388 1 Tablet(s) PO daily No Start Date 05/22/2015 Inactive Glucosamine oral RxNorm: 4845 oral No Start Date 04/26/2016 Inactive cetirizine 10 mg tablet RxNorm: 9035749 1 Tablet(s) PO daily No Start Date 01/07/2019 Inactive losartan 50 mg tablet RxNorm: 888469 1 Tablet(s) PO daily No Start Date 05/23/2018 Inactive Plavix 75 mg tablet RxNorm: 762096 1 Tablet(s) PO every other day No Start Date 12/11/2015 Inactive Osteo Bi-Flex oral RxNorm: 3251054 oral No Start Date 09/01/2017 Inactive iron ER 159 mg (45 mg iron) tablet,extended release RxNorm: 254831 1 Tablet(s) PO BID No Start Date 04/26/2016 Inactive amlodipine 5 mg tablet RxNorm: 692145 1 Tablet(s) PO daily No Start Date 01/05/2016 Inactive aspirin 81 mg tablet,delayed release RxNorm: 818871 1 Tablet(s) PO daily No Start Date 05/09/2018 Inactive dexamethasone 0.5 mg tablet RxNorm: 146838 1 Tablet(s) PO No Start Date 12/11/2015 Inactive Vitamin B-12 1,000 mcg tablet RxNorm: 400107 6 Tablet(s) PO every other day No Start Date 06/11/2018 Inactive colchicine 0.6 mg tablet RxNorm: 003687 Tablet(s) PO 1.2 mg for the first dose and 0.6 mg an hour after No Start Date 12/14/2015 Inactive nitroglycerin 0.4 mg sublingual tablet RxNorm: 596533 1 Tablet(s) SL x3 in 15 min as needed No Start Date 12/11/2015 Inactive Fish Oil 1,000 mg capsule RxNorm: 1 Capsule(s) PO daily No Start Date 04/26/2016 Inactive Ecotrin Low Strength 81 mg tablet,enteric coated RxNorm: 8791666 1 Tablet(s) PO daily No Start Date 09/27/2016 Inactive Medication Administered Medication Codes Instructions Start Date Status Kenalog 40 mg/mL suspension for injection RxNorm: 9850810 Milliliter 06/12/2018 No longer Active Immunizations Vaccine [...] 30.4 pg 10/20/2018 Cbc With Differential Ord2 [place]% 5.7 % 10/20/2018 Cbc With Differential Ord2 [...] 1.69 K/ul 10/20/2018 Cbc With Differential Ord2 [place] ABS# 0.6 K/ul 10/20/2018 Cbc With Differential Ord2 Eos ABS# 0.0 K/ul 10/20/2018 Cbc With Differential Ord2 Baso ABS# 0.0 K/ul 10/20/2018 Comp Metabolic Kcp166 NA 140 mEq/L 10/20/2018 Comp Metabolic Yrg072 K 4.0 mEq/L 10/20/2018 Comp Metabolic Qfz094 CL 104 mEq/L 10/20/2018 Comp Metabolic Ede910 CO2 28.0 mEq/L 10/20/2018 Comp Metabolic Uhn261 ANION GAP 12 10/20/2018 Comp Metabolic Sbi351 GLUCOSE 113 mg/dL 10/20/2018 Comp Metabolic Xar024 Creat 1.0 mg/dL 10/20/2018 Comp Metabolic Xbd155 eGFR 75 ml/min/1.73m2 10/20/2018 Comp Metabolic Oky809 BUN 18 mg/dL 10/20/2018 Comp Metabolic Lpe322 B/C Ratio 17.8 Ratio 10/20/2018 Comp Metabolic Ewu252 CALCIUM 9.8 mg/dL 10/20/2018 Comp Metabolic Sxx236 ALK PHOS 70 U/L 10/20/2018 Comp Metabolic Czu480 AST(SGOT) 15 U/L 10/20/2018 Comp Metabolic Msk845 ALT(SGPT) 18 U/L 10/20/2018 Comp Metabolic Hmy532 BILI T 1.1 mg/dL 10/20/2018 Comp Metabolic Lai203 ALBUMIN 4.4 g/dL 10/20/2018 Comp Metabolic Eka589 TPRO 6.9 g/dL 10/20/2018 Comp Metabolic Ztb098 GLOB 2.5 g/dL 10/20/2018 Comp Metabolic Ver254 A/G Ratio 1.7 Ratio 10/20/2018 Comp Metabolic Qwo764 Osmo 282 mOsmo 10/20/2018 Urinalysis Ord28 U-Color [...] 29.0 pg 07/14/2018 Cbc With Differential Ord2 [place]% 7.5 % 07/14/2018 Cbc With Differential Ord2 [...] 1.92 K/ul 07/14/2018 Cbc With Differential Ord2 [place] ABS# 0.4 K/ul 07/14/2018 Cbc With Differential Ord2 Eos ABS# 0.2 K/ul 07/14/2018 Cbc With Differential Ord2 Baso ABS# 0.0 K/ul 07/14/2018 Renal Gof716 NA 140 mEq/L 07/14/2018 Renal Bfe301 K 4.2 mEq/L 07/14/2018 Renal Khv995 CL 103 mEq/L 07/14/2018 Renal Aqt512 CO2 29.0 mEq/L 07/14/2018 Renal Tfy457 ANION GAP 12 07/14/2018 Renal Nia395 Osmo 280 mOsmo 07/14/2018 Renal Bgr278 GLUCOSE 95 mg/dL 07/14/2018 Renal Sju483 BUN 15 mg/dL 07/14/2018 Renal Nkn607 Creat 1.2 mg/dL 07/14/2018 Renal Cbq359 eGFR 64 ml/min/1.73m2 07/14/2018 Renal Zkn075 B/C Ratio 12.8 Ratio 07/14/2018 Renal Zrg596 CALCIUM 9.6 mg/dL 07/14/2018 Renal Fsy621 PHOS 3.2 mg/dL 07/14/2018 Renal Zzk840 ALBUMIN 4.4 g/dL 07/14/2018 Magnesium Ord90 Mag [...] 29.7 pg 06/08/2018 Cbc With Differential Ord2 [place]% 8.7 % 06/08/2018 Cbc With Differential Ord2 [...] 2.14 K/ul 06/08/2018 Cbc With Differential Ord2 [place] ABS# 0.5 K/ul 06/08/2018 Cbc With Differential Ord2 Eos ABS# 0.2 K/ul 06/08/2018 Cbc With Differential Ord2 Baso ABS# 0.0 K/ul 06/08/2018 Comp Metabolic Kgv507 NA 139 mEq/L 06/08/2018 Comp Metabolic Rve159 K 4.6 mEq/L 06/08/2018 Comp Metabolic Xor400 CL 105 mEq/L 06/08/2018 Comp Metabolic Smj496 CO2 26.0 mEq/L 06/08/2018 Comp Metabolic Ilq319 ANION GAP 13 06/08/2018 Comp Metabolic Dmi949 GLUCOSE 95 mg/dL 06/08/2018 Comp Metabolic Deb139 Creat 1.2 mg/dL 06/08/2018 Comp Metabolic Asg829 eGFR 59 ml/min/1.73m2 06/08/2018 Comp Metabolic Fbt577 BUN 12 mg/dL 06/08/2018 Comp Metabolic Nll412 B/C Ratio 9.7 Ratio 06/08/2018 Comp Metabolic Jld754 CALCIUM 9.9 mg/dL 06/08/2018 Comp Metabolic Jak753 ALK PHOS 70 U/L 06/08/2018 Comp Metabolic Kgq812 AST(SGOT) 21 U/L 06/08/2018 Comp Metabolic Slg517 ALT(SGPT) 20 U/L 06/08/2018 Comp Metabolic Kaf600 BILI T 1.0 mg/dL 06/08/2018 Comp Metabolic Tse844 ALBUMIN 4.5 g/dL 06/08/2018 Comp Metabolic Xjp158 TPRO 7.2 g/dL 06/08/2018 Comp Metabolic Xvq737 GLOB 2.8 g/dL 06/08/2018 Comp Metabolic Eux736 A/G Ratio 1.6 Ratio 06/08/2018 Comp Metabolic Tta612 Osmo 277 mOsmo 06/08/2018 Cbc With Differential [...] 30.6 pg 05/10/2018 Cbc With Differential Ord2 [place]% 6.5 % 05/10/2018 Cbc With Differential Ord2 [...] 1.94 K/ul 05/10/2018 Cbc With Differential Ord2 [place] ABS# 0.4 K/ul 05/10/2018 Cbc With Differential [...] Ord30 C/HDL 4.2 Ratio 01/26/2018 Comp Metabolic Cvn732 NA 138 mEq/L 01/26/2018 Comp Metabolic Hav242 K 4.2 mEq/L 01/26/2018 Comp Metabolic Svg121 CL 105 mEq/L 01/26/2018 Comp Metabolic Uic029 CO2 23.0 mEq/L 01/26/2018 Comp Metabolic Obu807 ANION GAP 14 01/26/2018 Comp Metabolic Duu620 GLUCOSE 89 mg/dL 01/26/2018 Comp Metabolic Xud676 Creat 1.1 mg/dL 01/26/2018 Comp Metabolic Zrv832 eGFR 70 ml/min/1.73m2 01/26/2018 Comp Metabolic Fzb917 BUN 18 mg/dL 01/26/2018 Comp Metabolic Mhu234 B/C Ratio 16.8 Ratio 01/26/2018 Comp Metabolic Jmd541 CALCIUM 9.2 mg/dL 01/26/2018 Comp Metabolic Loi342 ALK PHOS 67 U/L 01/26/2018 Comp Metabolic Opy800 AST(SGOT) 31 U/L 01/26/2018 Comp Metabolic Zep395 ALT(SGPT) 23 U/L 01/26/2018 Comp Metabolic Jsf661 BILI T 1.7 mg/dL 01/26/2018 Comp Metabolic Kcs730 ALBUMIN 3.9 g/dL 01/26/2018 Comp Metabolic Cim671 TPRO 6.7 g/dL 01/26/2018 Comp Metabolic Esa074 GLOB 2.8 g/dL 01/26/2018 Comp Metabolic Jbx249 A/G Ratio 1.4 Ratio 01/26/2018 Comp Metabolic Mgp835 Osmo 277 mOsmo 01/26/2018 Cbc With Differential [...] 30.7 pg 01/26/2018 Cbc With Differential Ord2 [place]itch[place]% 7.1 % 01/26/2018 Cbc With Differential Ord2 [...] 2.40 K/ul 01/26/2018 Cbc With Differential Ord2 [place] ABS# 0.5 K/ul 01/26/2018 Cbc With Differential Ord2 Eos ABS# 0.2 K/ul 01/26/2018 Cbc With Differential Ord2 Baso ABS# 0.0 K/ul 01/26/2018 Tsh Ord6 TSH (3rd IS) 1.81 uIU/mL 01/26/2018 Testosterone Jxs084 Testo 370.3 ng/dL 01/26/2018 C A/B FLU [id number] Influenza A Scr Negative 12/08/2017 C A/B FLU [id number] Influenza B Scr Negative 12/08/2017 C A/B FLU [id number] Influenza Intrp B AG:PRID:PT:NOSE:NOM:IF See Footnote 12/08/2017 [...] 30.8 pg 04/11/2017 Cbc With Differential Ord2 [place]% 8.1 % 04/11/2017 Cbc With Differential Ord2 [...] 1.91 K/ul 04/11/2017 Cbc With Differential Ord2 [place] ABS# 0.5 K/ul 04/11/2017 Cbc With Differential Ord2 Eos ABS# 0.2 K/ul 04/11/2017 Cbc With Differential Ord2 Baso ABS# 0.0 K/ul 04/11/2017 Comp Metabolic Zmc390 NA 140 mEq/L 04/11/2017 Comp Metabolic Biv157 K 4.1 mEq/L 04/11/2017 Comp Metabolic Mty024 CL 105 mEq/L 04/11/2017 Comp Metabolic Apq632 CO2 26.0 mEq/L 04/11/2017 Comp Metabolic Xoq672 ANION GAP 13 04/11/2017 Comp Metabolic Myu583 GLUCOSE 88 mg/dL 04/11/2017 Comp Metabolic Faf875 Creat 1.1 mg/dL 04/11/2017 Comp Metabolic Oiy504 eGFR 66 ml/min/1.73m2 04/11/2017 Comp Metabolic Ywf454 BUN 18 mg/dL 04/11/2017 Comp Metabolic Pmy329 B/C Ratio 15.9 Ratio 04/11/2017 Comp Metabolic Zfp926 CALCIUM 9.0 mg/dL 04/11/2017 Comp Metabolic Cpu740 ALK PHOS 72 U/L 04/11/2017 Comp Metabolic Dgj191 AST(SGOT) 22 U/L 04/11/2017 Comp Metabolic Bsu910 ALT(SGPT) 26 U/L 04/11/2017 Comp Metabolic Umt367 BILI T 1.0 mg/dL 04/11/2017 Comp Metabolic Iup652 ALBUMIN 4.0 g/dL 04/11/2017 Comp Metabolic Nbt924 TPRO 6.4 g/dL 04/11/2017 Comp Metabolic Lyn943 GLOB 2.4 g/dL 04/11/2017 Comp Metabolic Kxg535 A/G Ratio 1.6 Ratio 04/11/2017 Comp Metabolic Jnw415 Osmo 281 mOsmo 04/11/2017 Vitamin D 25 Oh Iwa7681 VITAMIN D, 25 HYDROXY 65.52 ng/mL 05/19/2016 [...] 28.5 pg 05/18/2016 Cbc With Differential Ord2 [place]itch[place]% 7.2 % 05/18/2016 Cbc With Differential Ord2 [...] 1.80 K/ul 05/18/2016 Cbc With Differential Ord2 [place] ABS# 0.4 K/ul 05/18/2016 Cbc With Differential Ord2 Eos ABS# 0.2 K/ul 05/18/2016 Cbc With Differential Ord2 Baso ABS# 0.0 K/ul 05/18/2016 Magnesium Ord90 Mag 2.0 mg/dL 05/18/2016 Renal Exh505 NA 139 mEq/L 05/18/2016 Renal Mco509 K 4.0 mEq/L 05/18/2016 Renal Yep264 CL 104 mEq/L 05/18/2016 Renal Lfm092 CO2 27.0 mEq/L 05/18/2016 Renal Szh100 ANION GAP 12 05/18/2016 Renal Yzb194 Osmo 279 mOsmo 05/18/2016 Renal Uci671 GLUCOSE 91 mg/dL 05/18/2016 Renal Djp598 BUN 18 mg/dL 05/18/2016 Renal Dxw273 Creat 1.3 mg/dL 05/18/2016 Renal Vsy925 eGFR 59 ml/min/1.73m2 05/18/2016 Renal Mms826 B/C Ratio 14.3 Ratio 05/18/2016 Renal Xto749 CALCIUM 9.3 mg/dL 05/18/2016 Renal Lxo973 PHOS 3.2 mg/dL 05/18/2016 Renal Gur628 ALBUMIN 4.2 g/dL 05/18/2016 Random Urine Protein/Creatinine Ratio Ign6431 U Prot 15.0 mg/dl 05/18/2016 Random Urine Protein/Creatinine Ratio Wsq7315 U CREAT 141.0 mg/dL 05/18/2016 Random Urine Protein/Creatinine Ratio Dcs8310 R MTP/Creat Ratio 0.11 05/18/2016 Urinalysis Ord28 [...] 28.5 pg 02/19/2016 Cbc With Differential Ord2 [place]% 9.5 % 02/19/2016 Cbc With Differential Ord2 [...] 1.91 K/ul 02/19/2016 Cbc With Differential Ord2 [place] ABS# 0.5 K/ul 02/19/2016 Cbc With Differential Ord2 Eos ABS# 0.2 K/ul 02/19/2016 Cbc With Differential Ord2 Baso ABS# 0.0 K/ul 02/19/2016 Cbc With Differential Ord2 New Analyzer Notice Please note new ref ranges starting 10-29-2015 due to implemntation of new five part differential hematolgy analyzer. 02/19/2016 Tsh Ord6 hTSH II 2.10 uIU/mL 02/19/2016 Comp Metabolic Myn322 NA 138 mEq/L 02/19/2016 Comp Metabolic Kzy822 K 3.8 mEq/L 02/19/2016 Comp Metabolic Twi109 CL 103 mEq/L 02/19/2016 Comp Metabolic Jla470 CO2 28.0 mEq/L 02/19/2016 Comp Metabolic Jet732 ANION GAP 11 02/19/2016 Comp Metabolic Gbo037 GLUCOSE 94 mg/dL 02/19/2016 Comp Metabolic Vsq842 Creat 1.0 mg/dL 02/19/2016 Comp Metabolic Jrt148 eGFR 75 ml/min/1.73m2 02/19/2016 Comp Metabolic Mfq260 BUN 18 mg/dL 02/19/2016 Comp Metabolic Mmg415 B/C Ratio 17.6 Ratio 02/19/2016 Comp Metabolic Xnn396 CALCIUM 9.6 mg/dL 02/19/2016 Comp Metabolic Gmp772 ALK PHOS 93 U/L 02/19/2016 Comp Metabolic Skh062 AST(SGOT) 23 U/L 02/19/2016 Comp Metabolic Yzg953 ALT(SGPT) 19 U/L 02/19/2016 Comp Metabolic Pqz588 BILI T 0.8 mg/dL 02/19/2016 Comp Metabolic Iiv002 ALBUMIN 4.1 g/dL 02/19/2016 Comp Metabolic Ntz754 TPRO 6.8 g/dL 02/19/2016 Comp Metabolic Zqt522 GLOB 2.7 g/dL 02/19/2016 Comp Metabolic Cqd543 A/G Ratio 1.5 Ratio 02/19/2016 Comp Metabolic Gkl207 Osmo 277 mOsmo 02/19/2016 Uric Acid Ord77 Uric A 6.0 mg/dL 02/19/2016 Total Psa Ord10 PSA 0.82 ng/mL 02/19/2016 Comp Metabolic Vkp173 NA 140 mEq/L 12/16/2015 Comp Metabolic Eky413 K 4.0 mEq/L 12/16/2015 Comp Metabolic Vct508 CL 105 mEq/L 12/16/2015 Comp Metabolic Mib022 CO2 24.0 mEq/L 12/16/2015 Comp Metabolic Jia130 ANION GAP 15 12/16/2015 Comp Metabolic Lmw745 GLUCOSE 85 mg/dL 12/16/2015 Comp Metabolic Yzt348 Creat 1.2 mg/dL 12/16/2015 Comp Metabolic Ibz465 eGFR 65 ml/min/1.73m2 12/16/2015 Comp Metabolic Qmu947 BUN 14 mg/dL 12/16/2015 Comp Metabolic Nki052 B/C Ratio 12.1 Ratio 12/16/2015 Comp Metabolic Qwd329 CALCIUM 9.1 mg/dL 12/16/2015 Comp Metabolic Ahs945 ALK PHOS 162 U/L 12/16/2015 Comp Metabolic Fxy907 AST(SGOT) 14 U/L 12/16/2015 Comp Metabolic Iej836 ALT(SGPT) 17 U/L 12/16/2015 Comp Metabolic Xde686 BILI T 1.0 mg/dL 12/16/2015 Comp Metabolic Tfz500 ALBUMIN 3.4 g/dL 12/16/2015 Comp Metabolic Hsg645 TPRO 6.2 g/dL 12/16/2015 Comp Metabolic Qml497 GLOB 2.9 g/dL 12/16/2015 Comp Metabolic Uhx548 A/G Ratio 1.2 Ratio 12/16/2015 Comp Metabolic Wcj299 Osmo 279 mOsmo 12/16/2015 Uric Acid Ord77 [...] 29.9 % 12/16/2015 Cbc With Differential Ord2 Ritchie% 7.5 % 12/16/2015 Cbc With Differential Ord2 [...] 1.52 K/ul 12/16/2015 Cbc With Differential Ord2 Ritchie ABS# 0.4 K/ul 12/16/2015 Cbc With Differential [...] C/HDL 4.0 Ratio 07/21/2015 Urine Protein 24Hr Agz897 U Prot 5.1 mg/dl 05/16/2015 Urine Protein 24Hr Gne460 U Prot24 71.5 mg/24hr 05/16/2015 Total Volume Urine Kwq228 TV/24hr 1400 ml 05/16/2015 Total Psa Ord10 PSA 0.70 ng/mL 05/15/2015 Renal Zzr397 NA 135 mEq/L 05/15/2015 Renal Hom210 K 3.9 mEq/L 05/15/2015 Renal Tcj329 CL 101 mEq/L 05/15/2015 Renal Pia292 CO2 27.0 mEq/L 05/15/2015 Renal Uqu831 ANION GAP 11 05/15/2015 Renal Wni689 Osmo 274 mOsmo 05/15/2015 Renal Bfg509 GLUCOSE 132 mg/dL 05/15/2015 Renal Vaw091 BUN 19 mg/dL 05/15/2015 Renal Huq387 Creat 1.1 mg/dL 05/15/2015 Renal Mlo862 eGFR 67 ml/min/1.73m2 05/15/2015 Renal Oqq690 B/C Ratio 17.0 Ratio 05/15/2015 Renal Kso667 CALCIUM 9.6 mg/dL 05/15/2015 Renal Pbq732 PHOS 3.0 mg/dL 05/15/2015 Renal Wag397 ALBUMIN 4.3 g/dL 05/15/2015 Cbc With Differential [...] Formatting Model/CDA Sections, Assigned to/Sharee Ramirez CPT-4: 33627Uzidvni 07/05/2018 THER/PROPH/DIAG INJ SC/IM CPT-4: 41250 06/12/2018 TRIAMCINOLONE ACET INJ NOS CPT-4: J3301 06/12/2018 PPPS, SUBSEQ VISIT CPT- 4: G0439 08/03/2017 ADMIN INFLUENZA VIRUS VAC CPT-4: G0008 06/28/2016 FLU VACC PRSV FREE INC ANTIG CPT-4: 86157 06/28/2016 TENIVAC TD VACCINE NO PRSRV 7/> IM CPT-4: 16425 06/28/2016 OCCULT BLOOD FECES CPT- 4: 07036 02/19/2015 Vital Signs Date Vital 2019 Blood Pressure 1: 136/74 Code: 8480-6 BMI: 28.6 Code: 26213-8 Heart Rate 1: 97 bpm Height: 6' SpO2: 94% Weight: 211 lbs 01/08/2019 Blood Pressure 1: 128/86 Code: 8480-6 BMI: 28.6 Code: 67263-4 Heart Rate 1: 96 bpm Height: 6' SpO2: 97% Weight: 211 lbs 12/25/2018 Blood Pressure 1: 112/62 Code: 8480-6 BMI: 28.6 Code: 45753-0 Heart Rate 1: 76 bpm Height: 6' SpO2: 96% Weight: 211 lbs 12/13/2018 Blood Pressure 1: 114/78 Code: 8480-6 BMI: 29.4 Code: 56825-5 Heart Rate 1: 73 bpm Height: 6' SpO2: 93% Weight: 217 lbs 11/27/2018 Blood Pressure 1: 110/70 Code: 8480-6 BMI: 28.5 Code: 16377-4 Heart Rate 1: 90 bpm Height: 6' SpO2: 95% Temperature: 36.8 (C) / 98.2 (F) Weight: 210 lbs 8 oz 09/26/2018 Blood Pressure 1: 130/80 Code: 8480-6 BMI: 29.6 Code: 03590-2 Heart Rate 1: 98 bpm Height: 6' SpO2: 93% Weight: 218 lbs 08/10/2018 BMI: 29.4 Code: 59040-6 Height: 6' Weight: 217 lbs 07/26/2018 Blood Pressure 1: 116/72 Code: 8480-6 BMI: 29.4 Code: 37606-1 Heart Rate 1: 102 bpm Height: 6' SpO2: 96% Weight: 217 lbs 07/05/2018 Blood Pressure 1: 132/72 Code: 8480-6 Heart Rate 1: 60 bpm SpO2: 95% 06/12/2018 Blood Pressure 1: 120/78 Code: 8480-6 BMI: 29.6 Code: 82448-7 Heart Rate 1: 103 bpm Height: 6' SpO2: 96% Weight: 218 lbs 05/10/2018 Blood Pressure 1: 114/68 Code: 8480-6 BMI: 29.4 Code: 40923-2 Heart Rate 1: 92 bpm Height: 6' SpO2: 97% Weight: 217 lbs 03/27/2018 Blood Pressure 1: 126/74 Code: 8480-6 BMI: 30.1 Code: 18110-1 Heart Rate 1: 103 bpm Height: 6' SpO2: 96% Weight: 222 lbs 01/25/2018 Blood Pressure 1: 122/70 Code: 8480-6 Blood Pressure 2: 126/73 Code: 8480-6 Heart Rate 1: 63 bpm SpO2: 94% 01/24/2018 Blood Pressure 1: 110/72 Code: 8480-6 BMI: 29.7 Code: 19864-4 Heart Rate 1: 88 bpm Height: 6' SpO2: 95% Weight: 219 lbs 12/08/2017 Blood Pressure 1: 12068 Code: 8480-6 BMI: 30.0 Code: 55731-4 Heart Rate 1: 91 bpm Height: 6' SpO2: 96% Temperature: 36.7 (C) / 98.1 (F) Weight: 221 lbs 10/27/2017 Blood Pressure 1: 124/76 Code: 8480-6 BMI: 30.1 Code: 28647-0 Heart Rate 1: 69 bpm Height: 6' SpO2: 95% Weight: 222 lbs 09/29/2017 Blood Pressure 1: 118/66 Code: 8480-6 BMI: 29.9 Code: 34724-0 Heart Rate 1: 81 bpm Height: 6' SpO2: 95% Weight: 220 lbs 8 oz 09/01/2017 Blood Pressure 1: 122/82 Code: 8480-6 BMI: 29.6 Code: 26256-8 Heart Rate 1: 75 bpm Height: 6' SpO2: 97% Weight: 218 lbs 08/03/2017 Blood Pressure 1: 120/68 Code: 8480-6 Heart Rate 1: 68 bpm Height: 6' SpO2: 94% Waist Measure (cm): 97 cm 04/26/2017 Blood Pressure 1: 122/72 Code: 8480-6 BMI: 29.4 Code: 09213-1 Heart Rate 1: 85 bpm Height: 6' SpO2: 92% Weight: 217 lbs 01/25/2017 Blood Pressure 1: 118/78 Code: 8480-6 BMI: 29.4 Code: 90636-1 Heart Rate 1: 72 bpm Height: 6' SpO2: 94% Temperature: 36.9 (C) / 98.5 (F) Weight: 217 lbs 10/26/2016 Blood Pressure 1: 152/86 Code: 8480-6 BMI: 29.7 Code: 28016-7 Heart Rate 1: 58 bpm Height: 6' Weight: 219 lbs 09/27/2016 Blood Pressure 1: 138/80 Code: 8480-6 BMI: 29.4 Code: 03252-6 Heart Rate 1: 52 bpm Height: 6' SpO2: 98% Weight: 217 lbs 06/28/2016 Blood Pressure 1: 128/86 Code: 8480-6 BMI: 29.6 Code: 20921-9 Heart Rate 1: 69 bpm Height: 6' SpO2: 93% Weight: 218 lbs 04/27/2016 Blood Pressure 1: 11882 Code: 8480-6 BMI: 29.3 Code: 20051-9 Heart Rate 1: 85 bpm Height: 6' SpO2: 98% Weight: 216 lbs 02/17/2016 Blood Pressure 1: 132/80 Code: 8480-6 BMI: 28.8 Code: 46060-2 Heart Rate 1: 94 bpm Height: 6' SpO2: 98% Weight: 212 lbs 01/20/2016 Blood Pressure 1: 120/70 Code: 8480-6 BMI: 29.7 Code: 53340-8 Heart Rate 1: 87 bpm Height: 6' SpO2: 92% Weight: 219 lbs 01/06/2016 Blood Pressure 1: 122/88 Code: 8480-6 BMI: 28.8 Code: 89821-8 Heart Rate 1: 83 bpm Height: 6' SpO2: 97% Weight: 212 lbs 12/16/2015 Blood Pressure 1: 98/62 Code: 8480-6 Heart Rate 1: 62 bpm Height: 6' SpO2: 90% Weight: 11/27/2015 Blood Pressure 1: 90/64 Code: 8480-6 Blood Pressure 1: 110/80 Code: 8480-6 Heart Rate 1: 91 bpm Height: 6' SpO2: 92% Weight: 07/30/2015 Blood Pressure 1: 112/82 Code: 8480-6 BMI: 30.5 Code: 65097-6 Heart Rate 1: 82 bpm Height: 6' SpO2: 92% Weight: 225 lbs 06/09/2015 Blood Pressure 1: 130/76 Code: 8480-6 BMI: 31.1 Code: 68966-1 Heart Rate 1: 65 bpm Height: 6' SpO2: 96% Weight: 229 lbs 04/29/2015 Blood Pressure 1: 118/78 Code: 8480-6 BMI: 30.7 Code: 09326-3 Heart Rate 1: 70 bpm Height: 6' Weight: 226 lbs 02/19/2015 Blood Pressure 1: 118/70 Code: 8480-6 BMI: 29.7 Code: 97788-2 Heart Rate 1: 68 bpm Height: 6' [...] III Diagnosis: Pleurodynia[ICD10: R07.81] Mady Butcher MD, [facility] CPT-4: 45130 2019 [id number]) 00293 EST. PATIENT, LEVEL III Diagnosis: Other allergic rhinitis[ICD10: J30.89] Merline Butcher MD, [facility] CPT-4: 16512 01/08/2019 19839 EST. PATIENT, LEVEL IV Diagnosis: Other fatigue[ICD10: R53.83] Diagnosis: Obstructive sleep apnea (adult) (pediatric)[ICD10: G47.33] Diagnosis: Other malaise[ICD10: R53.81] Mady Butcher MD, [facility] CPT-4: 85131 12/25/2018 [id number]) 67621 EST. PATIENT, LEVEL IV Diagnosis: Shortness of breath[ICD10: R06.02] Diagnosis: Other fatigue[ICD10: R53.83] Diagnosis: Obstructive sleep apnea (adult) (pediatric)[ICD10: G47.33] Diagnosis: Other malaise[ICD10: R53.81] Lesley Butcher MD, [facility] CPT-4: 28150 12/13/2018 [id number]) 42175 EST. PATIENT, LEVEL IV Diagnosis: Shortness of breath[ICD10: R06.02] Diagnosis: Dizziness and giddiness[ICD10: R42] Diagnosis: Other fatigue[ICD10: R53.83] Diagnosis: Essential (primary) hypertension[ICD10: I10] Diagnosis: Muscle weakness (generalized)[ICD10: M62.81] Merline Butcher MD [facility] CPT-4: 34474 11/27/2018 ([id number]) 25111 EST. PATIENT, LEVEL IV Diagnosis: Essential (primary) hypertension[ICD10: I10] Diagnosis: Vertigo of central origin, right ear[ICD10: H81.41] Diagnosis: Low back pain[ICD10: M54.5] Lesley Butcher MD [facility] CPT-4: 13231 09/26/2018 ([id number]) 60178 EST. PATIENT, LEVEL III Diagnosis: Dizziness and giddiness[ICD10: R42] Diagnosis: Vertigo of central origin, right ear[ICD10: H81.41] Diagnosis: Essential (primary) hypertension[ICD10: I10] Lesley Butcher MD [facility] CPT-4: 54443 07/26/2018 ([id number]) 02926 EST. PATIENT, LEVEL III Diagnosis: Essential (primary) hypertension[ICD10: I10] Lesley Butcher MD [facility] CPT-4: 30344 06/12/2018 ([id number]) 87793 EST. PATIENT, LEVEL IV Diagnosis: Other iron deficiency anemias[ICD10: D50.8] Diagnosis: Weakness[ICD10: R53.1] Diagnosis: Diverticulosis of large intestine without perforation or abscess with bleeding[ICD10: K57.31] Lesley Butcher MD [facility] CPT-4: 34706 05/10/2018 ([id number]) 59248 EST. PATIENT, LEVEL IV Diagnosis: Essential (primary) hypertension[ICD10: I10] Diagnosis: Major depressive disorder, recurrent, mild[ICD10: F33.0] Diagnosis: Sensorineural hearing loss, bilateral[ICD10: H90.3] Lesley Butcher MD [facility] CPT-4: 78626 03/27/2018 ([id number]) Miscellaneous no charge Diagnosis: Essential (primary) hypertension[ICD10: I10] Mady Butcher MD [facility] CPT-4: 47113 01/25/2018 ([id number]) 08282 EST. PATIENT, LEVEL IV Diagnosis: Essential (primary) hypertension[ICD10: I10] Diagnosis: Sensorineural hearing loss, bilateral[ICD10: H90.3] Diagnosis: Mixed hyperlipidemia[ICD10: E78.2] Diagnosis: Major depressive disorder, recurrent, mild[ICD10: F33.0] Lesley Butcher MD, [facility] CPT-4: 07694 01/24/2018 36394 EST. PATIENT, LEVEL IV Diagnosis: Other malaise[ICD10: R53.81] Diagnosis: Fever, unspecified[ICD10: R50.9] Mady Btucher MD, [facility] CPT-4: 97269 12/08/2017 ([id number]) 07789 EST. PATIENT, LEVEL III Diagnosis: Essential (primary) hypertension[ICD10: I10] Lesley Butcher MD, [facility] CPT-4: 26531 10/27/2017 ([id number]) 42345 EST. PATIENT, LEVEL III Diagnosis: Benign prostatic hyperplasia with lower urinary tract symptoms[ICD10: N40.1] Diagnosis: Dysphagia, pharyngeal phase[ICD10: R13.13] Lesley Butcher MD, [facility] CPT-4: 47156 09/29/2017 ([id number]) 86480 EST. PATIENT, LEVEL IV Diagnosis: Essential (primary) hypertension[ICD10: I10] Diagnosis: Major depressive disorder, recurrent, mild[ICD10: F33.0] Diagnosis: Sensorineural hearing loss, bilateral[ICD10: H90.3] Lesley Butcher MD, [facility] CPT-4: 54417 09/01/2017 ([id number]) 91293 EST. PATIENT, LEVEL IV Diagnosis: Essential (primary) hypertension[ICD10: I10] Diagnosis: Major depressive disorder, recurrent, mild[ICD10: F33.0] Diagnosis: Mixed hyperlipidemia[ICD10: E78.2] Lesley Butcher MD, [facility] CPT- 4: 47807 04/26/2017 ([id number]) 10496 EST. PATIENT, LEVEL IV Diagnosis: Essential (primary) hypertension[ICD10: I10] Diagnosis: Major depressive disorder, recurrent, mild[ICD10: F33.0] Diagnosis: Urge incontinence[ICD10: N39.41] Lesley Butcher MD [facility] CPT-4: 56501 01/25/2017 [id number]) 00657 EST. PATIENT, LEVEL IV Diagnosis: Essential (primary) hypertension[ICD10: I10] Diagnosis: Major depressive disorder, recurrent, mild[ICD10: F33.0] Diagnosis: Urge incontinence[ICD10: N39.41] Lesley Butcher MD, [facility] CPT-4: 21669 10/26/2016 ([id number]) 05941 EST. PATIENT, LEVEL III Diagnosis: Essential (primary) hypertension[ICD10: I10] Diagnosis: Major depressive disorder, recurrent, mild[ICD10: F33.0] Diagnosis: Urge incontinence[ICD10: N39.41] Lesley Butcher MD, [facility] CPT-4: 11755 09/27/2016 ([id number]) 51851 EST. PATIENT, LEVEL IV Diagnosis: Essential (primary) hypertension[ICD10: I10] Diagnosis: Encounter for immunization[ICD10: Z23] Diagnosis: Laceration without foreign body of left forearm, initial encounter[ICD10: S51.812A] Diagnosis: Laceration without foreign body of right forearm, initial encounter[ICD10: S51.811A] Diagnosis: Major depressive disorder, recurrent, mild[ICD10: F33.0] Lesley Butcher MD, [facility] CPT-4: 63390 06/28/2016 [id number]) 48492 EST. 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 PATIENT, LEVEL IV Diagnosis: Weakness[ICD10: R53.1] Diagnosis: Gout, unspecified[ICD10: M10.9] Diagnosis: Hypotension, unspecified[ICD10: I95.9] Lesley Butcher MD, [facility] CPT-4: 11652 12/16/2015 ([id number]) Patient admitted to the hospital from clinic (NO CHARGE) Diagnosis: Hypoxemia[ICD10: R09.02] Diagnosis: Weakness[ICD10: R53.1] Diagnosis: Dyspnea, unspecified[ICD10: R06.00] Mady Butcher MD, [facility] CPT- 4: 82153O 11/27/2015 ([id number]) 45993 EST. PATIENT, LEVEL III Diagnosis: Essential (primary) hypertension[ICD10: I10] Diagnosis: Gastro-esophageal reflux disease without esophagitis[ICD10: K21.9] Lesley Butcher MD, [facility] CPT-4: 42150 07/30/2015 ([id number]) 83014 EST. PATIENT, LEVEL III Diagnosis: ESSENTIAL HYPERTENSION[ICD9: 401.9] Merline Butcher MD, [facility] CPT-4: 93259 06/09/2015 ([id number]) 65586 EST. PATIENT, LEVEL III Diagnosis: ESSENTIAL HYPERTENSION[ICD9: 401.9] Lesley Butcher MD, [facility] CPT- 4: 29018 04/29/2015 ([id number]) OFFICE/OUTPATIENT VISIT NEW Diagnosis: ESSENTIAL HYPERTENSION[ICD9: 401.9] Diagnosis: DEPRESSIVE DISORDER NEC[ICD9: 311] Diagnosis: Enlarged prostate[ICD9: 600.00] Diagnosis: Nasal inflammation due to allergen[ICD9: 477.9] [facility] CPT-4: 62337 02/19/2015 Plan of Care Planned Activity Notes [...] 01/08/2019 Appointment: Merline Rose WPtel: [phone] (30 min) Complex 01/08/2019 Patient Education: Patient Medication Summary Completed 01/08/2019 Visit Plan: Fatigue, shortness of breath, dizziness - pt is to continue PT, pt is to follow up with Dr. Panda and Dr. Harvey and is to notify clinic with any changes in the current treatment plan. 12/25/2018 [phone] ([facility] min) Moderate 12/25/2018 Patient Education: [...] at 96% 12/13/2018 Appointment: Lesley Butcher WPtel: [phone] [facility] (15 min) Moderate 12/13/2018 Patient Education: Patient Medication Summary Completed 12/13/2018 Visit Plan: HNC-jkfcvyn-eyyozeyqy of breath -patient reports worsening of chronic symptoms -will check EKG and cardiac enzymes to evaluate for acute changes -recommend patient follow up with his v belt finisher, Dr Sharyn vu -patient, and daughter verbalized understanding of plan. Generalized weakness-discussed PT referral after cleared by cardiology -patient's will call us when she wants to have it set up HTN-no change but monitor at home 11/27/2018 Appointment: Merline Rose WPtel: [phone] [phone] [place] (15 min) Moderate 11/27/2018 Patient Education: [...] Appointment: Lesley Butcher WPtel: [phone] [facility] [place] (15 min) Moderate 09/26/2018 Patient Education: [...] care surrogate. 08/10/2018 Appointment: Mady Dunne WPtel: [facility]9 [facility] [place] [address] - Annual Wellness Visit 08/10/2018 Patient Education: [...] at home. 07/26/2018 Appointment: Lesley Butcher WPtel: [facility] (15 min) Moderate 07/26/2018 Patient Education: Patient [...] Appointment: Lesley Butcher WPtel: [phone] [facility] (15 min) Moderate 06/12/2018 Patient Education: Patient Medication Summary Completed 06/12/2018 Visit Plan: Diverticulosis with recent GI bleeding - improved - continue with supportive care, avoid foods which cause any abdominal pain - monitor symptoms - call if any pain or bleeding recurs. Anemia - check labs today. Weakness - continue with increasing of activity. 05/10/2018 Appointment: [phone] (30 min) Complex 05/10/2018 Patient Education: [...] implant. 03/27/2018 Appointment: [phone] (15 min) Moderate 03/27/2018 Patient Education: [...] 01/24/2018 Appointment: Lesley Butcher WPtel: [facility] (15 min) Moderate 01/24/2018 Patient Education: Patient Medication Summary Completed 01/24/2018 Visit Plan: Influenza - pt started on tamiflu - pt to start on anti-inflammatories, tylenol and monitor symptoms. Pt to call if not improving. Pt to alert any close contacts as to illness. 12/08/2017 Appointment: Mady Dunne WPtel: [facility] (30 min) Complex 12/08/2017 Patient Education: [...] 10/27/2017 Appointment: Lesley Butcher WPtel: [facility]6 [facility] (15 min) Moderate 10/27/2017 Patient Education: Patient Medication Summary Completed 10/27/2017 Referral: External, Ordering Provider Referral Initiated 10/12/2017 Visit Plan: BPH - continue with dutasteride and flomax Dysphagia - referral to Dr. Kumar for EGD - question stricture - dysphagia intermittently - hx of stricture. 09/29/2017 Appointment: Lesley Butcher WPtel: [facility] (15 min) Moderate 09/29/2017 Patient Education: Patient Medication Summary Completed 09/29/2017 Care Plan: Referral Order SNOMED-CT : [id number] Pending 09/29/2017 Visit Plan: Hypertension - well [...] recommended patient to have an evaluation at [facility] to see if he has potential for cochlear implant. 09/01/2017 Appointment: [phone] (15 min) Moderate 09/01/2017 Patient Education: Patient Medication Summary Completed 09/01/2017 Care Plan: Referral Order SNOMED-CT : [id number] Pending 09/01/2017 Visit Plan: Medicare Exam - [...] care surrogate. 08/03/2017 App[facility]ment[phone] [facility] - Welcome to Medicare visit [...] current medications. 04/26/2017 Appointment: Lesley Butcher WPtel: [phone] [facility] (15 min) Moderate 04/26/2017 Patient Education: [...] Appointment: Lesley Butcher WPtel: [phone] [facility] (30 min) Complex 01/25/2017 Patient Education: Patient [...] [place] 10/26/2016 Appointment: [facility]el[phone] (15 min) Moderate 10/26/2016 Patient Education: [...] occur. 09/27/2016 Appointment: [phone] (15 min) Moderate 09/27/2016 Patient Education: [...] andrea 06/28/2016 Appointment: [facility]Ptel[phone] [facility] (15 min) Moderate 06/28/2016 Patient Education: [...] 1 month 02/17/2016 Appointment: Merline Rose WPtel: [address] [place] [phone] (30 min) Complex 02/17/2016 Patient Education: Patient [...] Summary Completed 12/16/2015 Appointment: Lesley Butcher WPtel: [facility] (15 min) Moderate 12/04/2015 Appointment: Lesley Butcher WPtel: [facility] (15 min) Moderate 12/02/2015 Visit Plan: [...] FLU SHOT AT THE PHARMACY 07/30/2015 Appointment: Leslye Butcher [facility]el[phone] [facility] (15 min) Moderate 07/30/2015 Patient Education: [...] home. 04/29/2015 Appointment: [facility] But[facility]el[phone] [facility] (15 min) Moderate 04/29/2015 Patient Education: [...] External, Ordering Provider Referral Appointment Requested Referral: [facility] 09/12 Referral info faxed Appointment Requested Referral: [facility] Referral Appointment Requested Instructions Comment [...] planned injection in back and call the mechatronics technician about a biopsy of the lesion on [...] ILLNESS. CHECK CARDIAC ENYZMES AND EKG . FVL-ohcftao-mxhaifsvz of breath -patient reports worsening of chronic symptoms -will check EKG and cardiac enzymes to evaluate for acute changes -recommend patient follow up with his v belt finisher, Dr Stokes -patient, and daughter verbalized [...] recommended patient to have an evaluation at [facility] to see if he has potential for [...]
--- OUTSIDE RECORDS SUMMARY | 2019-03-23 19:54 | XMS REPORT | CCD ---
Author Author [facility] Organization [facility] Address [address] [place] [address] Phone Care Team Providers Care Sales Merchandise Associate Name Role Phone PP Unavailable CCM Unavailable Summary Purpose Interface Exchange Insurance Providers Payer name Policy type / Coverage type Covered democrat ID Effective Begin Date Effective End Date WPS Medicare Part B Medicare Part B [id number] 2018 Unknown [facility] Medicare Part B [id number] 2018 Unknown Family history Father Diagnosis Age At Onset Hypertension Unknown Coronary Artery Disease Unknown Sister Diagnosis Age At Onset Heart disease Unknown Mother Diagnosis Age At Onset Coronary Artery Disease Unknown Hypertension Unknown Social History Social History Element Codes Description Effective Dates Marital status Unknown 02/19/2015 Number of children Unknown 2 02/19/2015 Employment Unknown Retired 02/19/[address]: 748756468 Has never smoked or chewed tobacco 02/19/2015 Alcohol history Unknown occasionally drinks alcohol 02/19/2015 Allergies, Adverse Reactions, Alerts Substance Reaction Codes Entered Date Inactivated Date Status bactrim RxNorm: 938793 12/19/2015 No Inactive Date Active ciprofloxacin RxNorm: 64572 02/18/2015 No Inactive Date Active Past Medical History Illness Codes Condition Status Onset Date Resolved Date Other allergic rhinitis ICD-9: 477.8 ICD-10: J30.89 [...] Problems Condition Codes Effective Dates Condition Status Other allergic rhinitis ICD-9: 477.8 ICD-10: J30.89 [...] Instructions pantoprazole 40 mg tablet,delayed release RxNorm: 725894 TAKE ONE TABLET BY MOUTH ONCE DAILY AT BEDTIME 11/27/2018 No Stop Date Active atorvastatin 40 mg tablet RxNorm: 602794 1 Tablet(s) PO daily 09/26/2018 10/25/2018 Inactive dexamethasone 0.5 mg tablet RxNorm: 440426 TAKE 1 TABLET BY MOUTH ONCE DAILY 08/29/2018 No Stop Date Active clonazepam 1 mg tablet RxNorm: 265017 1/2 Tablet(s) PO QHS 08/24/2018 12/21/2018 Inactive allopurinol 100 mg tablet RxNorm: 566221 TAKE ONE TABLET BY MOUTH ONCE DAILY 08/03/2018 No Stop Date Active citalopram 40 mg tablet RxNorm: 213773 TAKE ONE TABLET BY MOUTH ONCE DAILY 06/13/2018 No Stop Date Active Kenalog 40 mg/mL suspension for injection RxNorm: 6605667 Milliliter(s) Inj 06/12/2018 06/12/2018 Inactive clonazepam 1 mg tablet RxNorm: 792261 1 Tablet(s) PO QHS 06/12/2018 08/23/2018 Inactive losartan 50 mg tablet RxNorm: 793984 1/2 Tablet(s) PO daily 05/24/2018 No Stop Date Active clonazepam 1 mg tablet RxNorm: 768765 1/2 Tablet(s) TAKE ONE TABLET BY MOUTH ONCE DAILY AT BEDTIME AND ONE TABLET THREE TIMES DAILY NEEDED 05/24/2018 06/11/2018 Inactive citalopram 40 mg tablet RxNorm: 130942 1/2 Tablet(s) TAKE ONE TABLET BY MOUTH ONCE DAILY 05/24/2018 09/25/2018 Inactive spironolactone 25 mg tablet RxNorm: 212075 TAKE ONE TABLET BY MOUTH ONCE DAILY 05/22/2018 No Stop Date Active dexamethasone 0.5 mg tablet RxNorm: 560274 TAKE ONE TABLET BY MOUTH ONCE DAILY 02/21/2018 08/28/2018 Inactive Flomax 0.4 mg capsule RxNorm: 791366 TAKE ONE CAPSULE BY MOUTH ONCE DAILY IN THE EVENING 12/19/2017 No Stop Date Active Tamiflu 75 mg capsule RxNorm: 043229 1 Capsule(s) PO BID 12/08/2017 12/12/2017 Inactive clonazepam 1 mg tablet RxNorm: 173807 Tablet(s) TAKE ONE TABLET BY MOUTH ONCE DAILY AT BEDTIME AND ONE TABLET THREE TIMES DAILY NEEDED 11/28/2017 01/26/2018 Inactive pantoprazole 40 mg tablet,delayed release RxNorm: 814163 TAKE ONE TABLET BY MOUTH ONCE DAILY AT BEDTIME 11/07/2017 11/26/2018 Inactive allopurinol 100 mg tablet RxNorm: 887606 TAKE ONE TABLET BY MOUTH ONCE DAILY 10/03/2017 08/02/2018 Inactive pantoprazole 40 mg tablet,delayed release RxNorm: 038500 1 Tablet(s) PO BID 09/01/2017 05/28/2018 Inactive Vitamin B-6 100 mg tablet RxNorm: 004247 1 Tablet(s) PO daily 09/01/2017 06/11/2018 Inactive dutasteride 0.5 mg capsule RxNorm: 710640 1 Capsule(s) PO QPM 09/01/2017 06/11/2018 Inactive spironolactone 25 mg tablet RxNorm: 272655 TAKE ONE TABLET BY MOUTH ONCE DAILY 08/15/2017 05/21/2018 Inactive citalopram 40 mg tablet RxNorm: 854959 TAKE ONE TABLET BY MOUTH ONCE DAILY 08/08/2017 05/04/2018 Inactive dexamethasone 0.5 mg tablet RxNorm: 548695 TAKE ONE TABLET BY MOUTH ONCE DAILY 08/08/2017 11/05/2017 Inactive clonazepam 1 mg tablet RxNorm: 903939 TAKE ONE TABLET BY MOUTH ONCE DAILY AT BEDTIME AND ONE THREE TIMES DAILY NEEDED 05/12/2017 08/08/2017 Inactive clonazepam 1 mg tablet RxNorm: 649750 1 Tablet(s) PO QHS AND 1 TAB PO TID PRN 05/12/2017 05/13/2017 Inactive oxybutynin chloride ER 10 mg tablet,extended release 24 hr RxNorm: 664965 1 Tablet(s) PO daily 04/29/2017 08/02/2017 Inactive dexamethasone 0.5 mg tablet RxNorm: 262300 TAKE ONE TABLET BY MOUTH ONCE DAILY 02/14/2017 04/14/2017 Inactive Flomax 0.4 mg capsule RxNorm: 261536 TAKE ONE CAPSULE BY MOUTH ONCE DAILY IN THE EVENING 02/14/2017 11/10/2017 Inactive pantoprazole 40 mg tablet,delayed release RxNorm: 151870 TAKE ONE TABLET BY MOUTH ONCE DAILY AT BEDTIME 02/14/2017 08/31/2017 Inactive oxybutynin chloride ER 10 mg tablet,extended release 24 hr RxNorm: 872166 1 Tablet(s) PO daily 01/25/2017 04/24/2017 Inactive dexamethasone 0.5 mg tablet RxNorm: 389605 TAKE ONE TABLET BY MOUTH ONCE DAILY 11/10/2016 12/09/2016 Inactive oxybutynin chloride ER 5 mg tablet,extended release 24 hr RxNorm: 209437 1 Tablet(s) PO daily 10/28/2016 10/27/2016 Inactive oxybutynin chloride ER 5 mg tablet,extended release 24 hr RxNorm: 516796 1 Tablet(s) PO daily 10/28/2016 01/24/2017 Inactive Detrol LA 2 mg capsule,extended release RxNorm: 072567 1 Capsule(s) PO QPM 10/26/2016 10/27/2016 Inactive clonazepam 1 mg tablet RxNorm: 539698 1 Tablet(s) PO QHS AND 1 TAB PO TID PRN 10/20/2016 04/17/2017 Inactive dexamethasone 0.5 mg tablet RxNorm: 356743 TAKE ONE TABLET BY MOUTH ONCE DAILY 10/06/2016 11/04/2016 Inactive allopurinol 100 mg tablet RxNorm: 661544 1 Tablet(s) PO daily 09/30/2016 09/24/2017 Inactive Vesicare 5 mg tablet RxNorm: 980291 1 Tablet(s) PO QPM 09/27/2016 12/12/2016 Inactive spironolactone 25 mg tablet RxNorm: 953712 1 Tablet(s) PO daily 08/06/2016 07/31/2017 Inactive citalopram 40 mg tablet RxNorm: 129935 1 Tablet(s) PO daily 06/28/2016 06/22/2017 Inactive Plavix 75 mg tablet RxNorm: 659299 1 Tablet(s) PO daily 04/27/2016 No Stop Date Active iron ER 159 mg (45 mg iron) tablet,extended release RxNorm: 567344 1 Tablet(s) PO daily 04/27/2016 08/31/2017 Inactive dexamethasone 0.5 mg tablet RxNorm: 778981 1/2 Tablet(s) PO daily 04/27/2016 02/20/2018 Inactive allopurinol 100 mg tablet RxNorm: 375614 1 Tablet(s) PO daily 04/27/2016 09/29/2016 Inactive clonazepam 1 mg tablet RxNorm: 710073 1 Tablet(s) PO QHS and 1 tab po TID prn 04/14/2016 10/07/2016 Inactive allopurinol 100 mg tablet RxNorm: 154355 1 Tablet(s) PO daily 02/17/2016 04/26/2016 Inactive citalopram 20 mg tablet RxNorm: 757124 1 Tablet(s) PO daily 01/20/2016 06/27/2016 Inactive Flomax 0.4 mg capsule RxNorm: 281839 1 Capsule(s) PO QPM 01/20/2016 01/13/2017 Inactive [SAVINGS FOR NON-COVERED DRUGS -- BIN:[id number], PCN: ASPROD1, Group: XXXXX, ID# [id number], Questions: . THIS IS NOT INSURANCE.] pantoprazole 40 mg tablet,delayed release RxNorm: 385977 1 Tablet(s) PO QHS 01/20/2016 01/13/2017 Inactive Colcrys 0.6 mg tablet RxNorm: 325329 1 Tablet(s) PO daily 01/06/2016 03/05/2016 Inactive take daily x 7 days then daily as needed for gout flair colchicine 0.6 mg tablet RxNorm: 226588 1 Tablet(s) PO BID 12/30/2015 01/01/2016 Inactive doxycycline hyclate 100 mg tablet RxNorm: 968108 1 Tablet(s) PO BID 12/19/2015 12/28/2015 Inactive doxycycline hyclate 100 mg tablet RxNorm: 200625 1 Tablet(s) PO BID 12/19/2015 12/18/2015 Inactive allopurinol 100 mg tablet RxNorm: 515351 1 Tablet(s) PO daily 12/16/2015 02/16/2016 Inactive colchicine 0.6 mg tablet RxNorm: 268655 Tablet(s) PO 1.2 mg PO in the morning and 0.6 mg at night for 2 days. 12/16/2015 12/29/2015 Inactive allopurinol 100 mg tablet RxNorm: 646503 1 Tablet(s) PO daily 12/16/2015 12/15/2015 Inactive Protonix 40 mg tablet,delayed release RxNorm: 720200 1 Tablet(s) PO daily 12/16/2015 01/14/2016 Inactive Bactrim DS 800 mg-160 mg tablet RxNorm: 818663 1 Tablet(s) PO BID 12/16/2015 12/18/2015 Inactive colchicine 0.6 mg tablet RxNorm: 219739 Tablet(s) PO 1.2 mg for the first dose and 0.6 mg an hour after 12/15/2015 12/15/2015 Inactive dexamethasone 0.5 mg tablet RxNorm: 200798 1 Tablet(s) PO 12/12/2015 02/09/2016 Inactive Plavix 75 mg tablet RxNorm: 254742 1 Tablet(s) PO every other day 12/12/2015 04/09/2016 Inactive nitroglycerin 0.4 mg sublingual tablet RxNorm: 558030 1 Tablet(s) SL x3 in 15 min as needed 12/12/2015 04/26/2016 Inactive clonazepam 1 mg tablet RxNorm: 831068 1 Tablet(s) PO QHS and 1 tab po TID prn 12/11/2015 12/03/2016 Inactive [place] 5 mg-325 mg tablet RxNorm: 173300 1-2 Tablet(s) PO Q6 as needed 12/11/2015 09/26/2016 Inactive clonazepam 1 mg tablet RxNorm: 817860 1 Tablet(s) PO QHS and 1 tab po TID prn 12/04/2015 12/10/2015 Inactive Flomax 0.4 mg capsule RxNorm: 290673 1 Capsule(s) PO QPM 09/22/2015 01/19/2016 Inactive [SAVINGS FOR NON-COVERED DRUGS -- BIN:[id number], PCN: ASPROD1, Group: XXXXX, ID# XXXXXXX, Questions: . THIS IS NOT INSURANCE.] Flomax 0.4 mg capsule RxNorm: 067487 1 Capsule(s) PO QPM 09/16/2015 09/21/2015 Inactive [SAVINGS FOR NON-COVERED DRUGS -- BIN:[id number], PCN: ASPROD1, Group: XXXXX, ID# XXXXXXX, Questions: . THIS IS NOT INSURANCE.] clonazepam 1 mg tablet RxNorm: 159581 1 Tablet(s) PO QHS 08/29/2015 12/03/2015 Inactive coenzyme Q10 10 mg tablet RxNorm: 167968 1 Tablet(s) PO daily 07/30/2015 01/05/2016 Inactive spironolactone 25 mg tablet RxNorm: 401804 1 Tablet(s) PO daily 07/28/2015 07/21/2016 Inactive spironolactone 25 mg tablet RxNorm: 783686 1 Tablet(s) PO daily 07/22/2015 07/27/2015 Inactive clonazepam 1 mg tablet RxNorm: 176920 1 Tablet(s) PO QHS 05/23/2015 08/28/2015 Inactive losartan 25 mg tablet RxNorm: 174641 1 Tablet(s) PO daily 02/19/2015 03/20/2015 Inactive Flonase Allergy Relief 50 mcg/actuation nasal spray,suspension RxNorm: 1 [place] NASAL BID 02/19/2015 04/26/2016 Inactive [SAVINGS FOR NON-COVERED DRUGS -- BIN:[id number], PCN: ASPROD1, Group: XXXXX, ID# XXXXXXX, Questions: . THIS IS NOT INSURANCE.] Flomax 0.4 mg capsule RxNorm: 565572 1 Capsule(s) PO QPM 02/19/2015 09/15/2015 Inactive [SAVINGS FOR NON-COVERED DRUGS -- BIN:730946, PCN: ASPROD1, Group: XXXXX, ID# XXXXXXX, Questions: . THIS IS NOT INSURANCE.] citalopram 20 mg tablet RxNorm: 972945 1 Tablet(s) PO daily 02/19/2015 03/20/2015 Inactive atenolol 25 mg tablet RxNorm: 384672 1 Tablet(s) PO daily 02/19/2015 03/20/2015 Inactive Lipitor 20 mg tablet RxNorm: 876709 1 Tablet(s) PO daily 02/19/2015 03/20/2015 Inactive vitamin B complex oral RxNorm: 38479 oral No Start Date Active Lipitor oral RxNorm: 43996 oral No Start Date Active Aleve 220 mg tablet RxNorm: 855260 Tablet(s) PO as needed No Start Date Active Vitamin D3 1,000 unit capsule RxNorm: 173622 2 Capsule(s) PO daily No Start Date Active Centrum Complete oral RxNorm: 04378 oral No Start Date Active glucosamine HCl 1,500 mg tablet RxNorm: 923562 1 Tablet(s) with 1200 mg chrondroitin PO daily No Start Date 08/01/2018 Inactive Claritin-D 24 Hour oral RxNorm: 741096 oral No Start Date 01/07/2019 Inactive ranitidine 150 mg tablet RxNorm: 135757 1 Tablet(s) PO TID No Start Date 12/11/2015 Inactive [place] 5 mg-325 mg tablet RxNorm: 333249 1-2 Tablet(s) PO Q6 as needed No Start Date 12/10/2015 Inactive krill oil oral RxNorm: 40630 oral No Start Date 08/07/2018 Inactive Vitamin B-6 100 mg tablet RxNorm: 360539 1 Tablet(s) PO TID No Start Date 08/31/2017 Inactive spironolactone 25 mg tablet RxNorm: 434775 1 Tablet(s) PO daily No Start Date 07/21/2015 Inactive Vitamin D3 oral RxNorm: 2418 oral No Start Date 02/17/2016 Inactive clonazepam 1 mg tablet RxNorm: 065904 1 Tablet(s) PO daily No Start Date 05/22/2015 Inactive Glucosamine oral RxNorm: 4845 oral No Start Date 04/26/2016 Inactive cetirizine 10 mg tablet RxNorm: 0815987 1 Tablet(s) PO daily No Start Date 01/07/2019 Inactive losartan 50 mg tablet RxNorm: 903069 1 Tablet(s) PO daily No Start Date 05/23/2018 Inactive Plavix 75 mg tablet RxNorm: 328808 1 Tablet(s) PO every other day No Start Date 12/11/2015 Inactive Osteo Bi-Flex oral RxNorm: 0554252 oral No Start Date 09/01/2017 Inactive iron ER 159 mg (45 mg iron) tablet,extended release RxNorm: 777113 1 Tablet(s) PO BID No Start Date 04/26/2016 Inactive amlodipine 5 mg tablet RxNorm: 427253 1 Tablet(s) PO daily No Start Date 01/05/2016 Inactive aspirin 81 mg tablet,delayed release RxNorm: 588260 1 Tablet(s) PO daily No Start Date 05/09/2018 Inactive dexamethasone 0.5 mg tablet RxNorm: 250047 1 Tablet(s) PO No Start Date 12/11/2015 Inactive Vitamin B-12 1,000 mcg tablet RxNorm: 959519 6 Tablet(s) PO every other day No Start Date 06/11/2018 Inactive colchicine 0.6 mg tablet RxNorm: 067464 Tablet(s) PO 1.2 mg for the first dose and 0.6 mg an hour after No Start Date 12/14/2015 Inactive nitroglycerin 0.4 mg sublingual tablet RxNorm: 316071 1 Tablet(s) SL x3 in 15 min as needed No Start Date 12/11/2015 Inactive Fish Oil 1,000 mg capsule RxNorm: 1 Capsule(s) PO daily No Start Date 04/26/2016 Inactive Ecotrin Low Strength 81 mg tablet,enteric coated RxNorm: 5121684 1 Tablet(s) PO daily No Start Date 09/27/2016 Inactive Medication Administered Medication Codes Instructions Start Date Status Kenalog 40 mg/mL suspension for injection RxNorm: 5760418 Milliliter 06/12/2018 No longer Active Immunizations Vaccine Codes Date Status Influenza CVX: 141 07/05/2018 completed Influenza CVX: 141 08/01/2017 completed Pneumococcal CVX: 33 08/01/2017 completed Influenza CVX: 141 06/28/2016 completed Tetanus, Diptheria, Pertussis CVX: 113 06/28/2016 completed Tetanus/Diptheria CVX: 113 06/28/2016 completed Pneumococcal Unknown 08/04/2015 completed Influenza CVX: 141 04/16/2014 completed Pneumococcal CVX: 33 05/15/2008 completed Assessments Condition Codes Effective Dates Other allergic rhinitis ICD-10: J30.89 ICD-9: 477.8 [...] Reason For Visit Effective Dates Notes fatigue 01/08/2019 fatigue 12/25/2018 fatigue 12/13/2018 fatigue [...] 30.4 pg 10/20/2018 Cbc With Differential Ord2 [place]% 5.7 % 10/20/2018 Cbc With Differential Ord2 [...] 1.69 K/ul 10/20/2018 Cbc With Differential Ord2 [place] ABS# 0.6 K/ul 10/20/2018 Cbc With Differential Ord2 Eos ABS# 0.0 K/ul 10/20/2018 Cbc With Differential Ord2 Baso ABS# 0.0 K/ul 10/20/2018 Comp Metabolic Jgw878 NA 140 mEq/L 10/20/2018 Comp Metabolic Ibz980 K 4.0 mEq/L 10/20/2018 Comp Metabolic Gpw211 CL 104 mEq/L 10/20/2018 Comp Metabolic Lvw724 CO2 28.0 mEq/L 10/20/2018 Comp Metabolic Nin719 ANION GAP 12 10/20/2018 Comp Metabolic Byu592 GLUCOSE 113 mg/dL 10/20/2018 Comp Metabolic Dng135 Creat 1.0 mg/dL 10/20/2018 Comp Metabolic Eli133 eGFR 75 ml/min/1.73m2 10/20/2018 Comp Metabolic Llo253 BUN 18 mg/dL 10/20/2018 Comp Metabolic Coz713 B/C Ratio 17.8 Ratio 10/20/2018 Comp Metabolic Nlc413 CALCIUM 9.8 mg/dL 10/20/2018 Comp Metabolic Qio583 ALK PHOS 70 U/L 10/20/2018 Comp Metabolic Rin765 AST(SGOT) 15 U/L 10/20/2018 Comp Metabolic Exg765 ALT(SGPT) 18 U/L 10/20/2018 Comp Metabolic Uqk332 BILI T 1.1 mg/dL 10/20/2018 Comp Metabolic Grs226 ALBUMIN 4.4 g/dL 10/20/2018 Comp Metabolic Tid600 TPRO 6.9 g/dL 10/20/2018 Comp Metabolic Xch142 GLOB 2.5 g/dL 10/20/2018 Comp Metabolic Hfh773 A/G Ratio 1.7 Ratio 10/20/2018 Comp Metabolic Tgi194 Osmo 282 mOsmo 10/20/2018 Urinalysis Ord28 U-Color [...] 29.0 pg 07/14/2018 Cbc With Differential Ord2 [place]% 7.5 % 07/14/2018 Cbc With Differential Ord2 [...] 1.92 K/ul 07/14/2018 Cbc With Differential Ord2 [place] ABS# 0.4 K/ul 07/14/2018 Cbc With Differential Ord2 Eos ABS# 0.2 K/ul 07/14/2018 Cbc With Differential Ord2 Baso ABS# 0.0 K/ul 07/14/2018 Renal Lwb929 NA 140 mEq/L 07/14/2018 Renal Kgj409 K 4.2 mEq/L 07/14/2018 Renal Lsb191 CL 103 mEq/L 07/14/2018 Renal Hjm389 CO2 29.0 mEq/L 07/14/2018 Renal Xdq149 ANION GAP 12 07/14/2018 Renal Udg081 Osmo 280 mOsmo 07/14/2018 Renal Faj253 GLUCOSE 95 mg/dL 07/14/2018 Renal Raf994 BUN 15 mg/dL 07/14/2018 Renal Bru581 Creat 1.2 mg/dL 07/14/2018 Renal Nxw935 eGFR 64 ml/min/1.73m2 07/14/2018 Renal Ubt235 B/C Ratio 12.8 Ratio 07/14/2018 Renal Bst846 CALCIUM 9.6 mg/dL 07/14/2018 Renal Gix068 PHOS 3.2 mg/dL 07/14/2018 Renal Pjt567 ALBUMIN 4.4 g/dL 07/14/2018 Magnesium Ord90 Mag [...] 29.7 pg 06/08/2018 Cbc With Differential Ord2 [place]% 8.7 % 06/08/2018 Cbc With Differential Ord2 [...] 2.14 K/ul 06/08/2018 Cbc With Differential Ord2 [place] ABS# 0.5 K/ul 06/08/2018 Cbc With Differential Ord2 Eos ABS# 0.2 K/ul 06/08/2018 Cbc With Differential Ord2 Baso ABS# 0.0 K/ul 06/08/2018 Comp Metabolic Dbz910 NA 139 mEq/L 06/08/2018 Comp Metabolic Ybq993 K 4.6 mEq/L 06/08/2018 Comp Metabolic Jft440 CL 105 mEq/L 06/08/2018 Comp Metabolic Dbj380 CO2 26.0 mEq/L 06/08/2018 Comp Metabolic Lkt658 ANION GAP 13 06/08/2018 Comp Metabolic Ged995 GLUCOSE 95 mg/dL 06/08/2018 Comp Metabolic Dyc304 Creat 1.2 mg/dL 06/08/2018 Comp Metabolic Kor000 eGFR 59 ml/min/1.73m2 06/08/2018 Comp Metabolic Isa760 BUN 12 mg/dL 06/08/2018 Comp Metabolic Oky409 B/C Ratio 9.7 Ratio 06/08/2018 Comp Metabolic Wud426 CALCIUM 9.9 mg/dL 06/08/2018 Comp Metabolic Tjh935 ALK PHOS 70 U/L 06/08/2018 Comp Metabolic Ywm806 AST(SGOT) 21 U/L 06/08/2018 Comp Metabolic Far713 ALT(SGPT) 20 U/L 06/08/2018 Comp Metabolic Xee881 BILI T 1.0 mg/dL 06/08/2018 Comp Metabolic Tkn338 ALBUMIN 4.5 g/dL 06/08/2018 Comp Metabolic Sts085 TPRO 7.2 g/dL 06/08/2018 Comp Metabolic Wmu751 GLOB 2.8 g/dL 06/08/2018 Comp Metabolic Jks433 A/G Ratio 1.6 Ratio 06/08/2018 Comp Metabolic Mxc699 Osmo 277 mOsmo 06/08/2018 Cbc With Differential [...] 30.6 pg 05/10/2018 Cbc With Differential Ord2 [place]% 6.5 % 05/10/2018 Cbc With Differential Ord2 [...] 1.94 K/ul 05/10/2018 Cbc With Differential Ord2 [place] ABS# 0.4 K/ul 05/10/2018 Cbc With Differential [...] Ord30 C/HDL 4.2 Ratio 01/26/2018 Comp Metabolic Hka252 NA 138 mEq/L 01/26/2018 Comp Metabolic Wht512 K 4.2 mEq/L 01/26/2018 Comp Metabolic Rli251 CL 105 mEq/L 01/26/2018 Comp Metabolic Jmq405 CO2 23.0 mEq/L 01/26/2018 Comp Metabolic Gvb332 ANION GAP 14 01/26/2018 Comp Metabolic Wra568 GLUCOSE 89 mg/dL 01/26/2018 Comp Metabolic Fzh581 Creat 1.1 mg/dL 01/26/2018 Comp Metabolic Nrb632 eGFR 70 ml/min/1.73m2 01/26/2018 Comp Metabolic Drp668 BUN 18 mg/dL 01/26/2018 Comp Metabolic Hbx354 B/C Ratio 16.8 Ratio 01/26/2018 Comp Metabolic Whn255 CALCIUM 9.2 mg/dL 01/26/2018 Comp Metabolic Ldg340 ALK PHOS 67 U/L 01/26/2018 Comp Metabolic Mfs169 AST(SGOT) 31 U/L 01/26/2018 Comp Metabolic Ffz678 ALT(SGPT) 23 U/L 01/26/2018 Comp Metabolic Mkn284 BILI T 1.7 mg/dL 01/26/2018 Comp Metabolic Rwm599 ALBUMIN 3.9 g/dL 01/26/2018 Comp Metabolic Iie137 TPRO 6.7 g/dL 01/26/2018 Comp Metabolic Fyx055 GLOB 2.8 g/dL 01/26/2018 Comp Metabolic Ttd647 A/G Ratio 1.4 Ratio 01/26/2018 Comp Metabolic Onx584 Osmo 277 mOsmo 01/26/2018 Cbc With Differential [...] 30.7 pg 01/26/2018 Cbc With Differential Ord2 [place]% 7.1 % 01/26/2018 Cbc With Differential Ord2 [...] 2.40 K/ul 01/26/2018 Cbc With Differential Ord2 [place] ABS# 0.5 K/ul 01/26/2018 Cbc With Differential Ord2 Eos ABS# 0.2 K/ul 01/26/2018 Cbc With Differential Ord2 Baso ABS# 0.0 K/ul 01/26/2018 Tsh Ord6 TSH (3rd IS) 1.81 uIU/mL 01/26/2018 Testosterone Umy337 Testo 370.3 ng/dL 01/26/2018 C A/B FLU [id number] Influenza A Scr Negative 12/08/2017 C A/B FLU [id number] Influenza B Scr Negative 12/08/2017 C A/B FLU [id number] Influenza Intrp B AG:PRID:PT:NOSE:NOM:IF See Footnote 12/08/2017 [...] 30.8 pg 04/11/2017 Cbc With Differential Ord2 [place]% 8.1 % 04/11/2017 Cbc With Differential Ord2 [...] 1.91 K/ul 04/11/2017 Cbc With Differential Ord2 [place] ABS# 0.5 K/ul 04/11/2017 Cbc With Differential Ord2 Eos ABS# 0.2 K/ul 04/11/2017 Cbc With Differential Ord2 Baso ABS# 0.0 K/ul 04/11/2017 Comp Metabolic Xax356 NA 140 mEq/L 04/11/2017 Comp Metabolic Kyf604 K 4.1 mEq/L 04/11/2017 Comp Metabolic Xgz946 CL 105 mEq/L 04/11/2017 Comp Metabolic Oin773 CO2 26.0 mEq/L 04/11/2017 Comp Metabolic Xjv384 ANION GAP 13 04/11/2017 Comp Metabolic Fcc199 GLUCOSE 88 mg/dL 04/11/2017 Comp Metabolic Cfv482 Creat 1.1 mg/dL 04/11/2017 Comp Metabolic Lqz313 eGFR 66 ml/min/1.73m2 04/11/2017 Comp Metabolic Ltb070 BUN 18 mg/dL 04/11/2017 Comp Metabolic Hph382 B/C Ratio 15.9 Ratio 04/11/2017 Comp Metabolic Fzn397 CALCIUM 9.0 mg/dL 04/11/2017 Comp Metabolic Mvz487 ALK PHOS 72 U/L 04/11/2017 Comp Metabolic Yre016 AST(SGOT) 22 U/L 04/11/2017 Comp Metabolic Kei336 ALT(SGPT) 26 U/L 04/11/2017 Comp Metabolic Acd080 BILI T 1.0 mg/dL 04/11/2017 Comp Metabolic Yzs802 ALBUMIN 4.0 g/dL 04/11/2017 Comp Metabolic Fea445 TPRO 6.4 g/dL 04/11/2017 Comp Metabolic Bra954 GLOB 2.4 g/dL 04/11/2017 Comp Metabolic Eqh584 A/G Ratio 1.6 Ratio 04/11/2017 Comp Metabolic Jlk887 Osmo 281 mOsmo 04/11/2017 Vitamin D 25 Oh Czh7819 VITAMIN D, 25 HYDROXY 65.52 ng/mL 05/19/2016 [...] 28.5 pg 05/18/2016 Cbc With Differential Ord2 [place]% 7.2 % 05/18/2016 Cbc With Differential Ord2 [...] 1.80 K/ul 05/18/2016 Cbc With Differential Ord2 [place] ABS# 0.4 K/ul 05/18/2016 Cbc With Differential Ord2 Eos ABS# 0.2 K/ul 05/18/2016 Cbc With Differential Ord2 Baso ABS# 0.0 K/ul 05/18/2016 Magnesium Ord90 Mag 2.0 mg/dL 05/18/2016 Renal Lgr299 NA 139 mEq/L 05/18/2016 Renal Ved016 K 4.0 mEq/L 05/18/2016 Renal Uxu631 CL 104 mEq/L 05/18/2016 Renal Sju857 CO2 27.0 mEq/L 05/18/2016 Renal Lhp995 ANION GAP 12 05/18/2016 Renal Jxf909 Osmo 279 mOsmo 05/18/2016 Renal Upk138 GLUCOSE 91 mg/dL 05/18/2016 Renal Nxu090 BUN 18 mg/dL 05/18/2016 Renal Xvb715 Creat 1.3 mg/dL 05/18/2016 Renal Ykc079 eGFR 59 ml/min/1.73m2 05/18/2016 Renal Dmv719 B/C Ratio 14.3 Ratio 05/18/2016 Renal Ahf830 CALCIUM 9.3 mg/dL 05/18/2016 Renal Rnp963 PHOS 3.2 mg/dL 05/18/2016 Renal Kvh957 ALBUMIN 4.2 g/dL 05/18/2016 Random Urine Protein/Creatinine Ratio Edq3986 U Prot 15.0 mg/dl 05/18/2016 Random Urine Protein/Creatinine Ratio Vdb3471 U CREAT 141.0 mg/dL 05/18/2016 Random Urine Protein/Creatinine Ratio Gyj9422 R MTP/Creat Ratio 0.11 05/18/2016 Urinalysis Ord28 [...] 28.5 pg 02/19/2016 Cbc With Differential Ord2 [place]% 9.5 % 02/19/2016 Cbc With Differential Ord2 [...] 1.91 K/ul 02/19/2016 Cbc With Differential Ord2 [place] ABS# 0.5 K/ul 02/19/2016 Cbc With Differential Ord2 Eos ABS# 0.2 K/ul 02/19/2016 Cbc With Differential Ord2 Baso ABS# 0.0 K/ul 02/19/2016 Cbc With Differential Ord2 New Analyzer Notice Please note new ref ranges starting 10-29-2015 due to implemntation of new five part differential hematolgy analyzer. 02/19/2016 Tsh Ord6 hTSH II 2.10 uIU/mL 02/19/2016 Comp Metabolic Ozb376 NA 138 mEq/L 02/19/2016 Comp Metabolic Qpq460 K 3.8 mEq/L 02/19/2016 Comp Metabolic Pxc391 CL 103 mEq/L 02/19/2016 Comp Metabolic Yhf397 CO2 28.0 mEq/L 02/19/2016 Comp Metabolic Ace230 ANION GAP 11 02/19/2016 Comp Metabolic Ffp591 GLUCOSE 94 mg/dL 02/19/2016 Comp Metabolic Hrt265 Creat 1.0 mg/dL 02/19/2016 Comp Metabolic Bht777 eGFR 75 ml/min/1.73m2 02/19/2016 Comp Metabolic Xzj035 BUN 18 mg/dL 02/19/2016 Comp Metabolic Cqm741 B/C Ratio 17.6 Ratio 02/19/2016 Comp Metabolic Nej930 CALCIUM 9.6 mg/dL 02/19/2016 Comp Metabolic Qiw506 ALK PHOS 93 U/L 02/19/2016 Comp Metabolic Rpn830 AST(SGOT) 23 U/L 02/19/2016 Comp Metabolic Nym801 ALT(SGPT) 19 U/L 02/19/2016 Comp Metabolic Itc262 BILI T 0.8 mg/dL 02/19/2016 Comp Metabolic Zhu996 ALBUMIN 4.1 g/dL 02/19/2016 Comp Metabolic Ryv518 TPRO 6.8 g/dL 02/19/2016 Comp Metabolic Xqo721 GLOB 2.7 g/dL 02/19/2016 Comp Metabolic Vbx086 A/G Ratio 1.5 Ratio 02/19/2016 Comp Metabolic Fgz500 Osmo 277 mOsmo 02/19/2016 Uric Acid Ord77 Uric A 6.0 mg/dL 02/19/2016 Total Psa Ord10 PSA 0.82 ng/mL 02/19/2016 Comp Metabolic Bvg314 NA 140 mEq/L 12/16/2015 Comp Metabolic Nro958 K 4.0 mEq/L 12/16/2015 Comp Metabolic Dys934 CL 105 mEq/L 12/16/2015 Comp Metabolic Vdd773 CO2 24.0 mEq/L 12/16/2015 Comp Metabolic Nsp354 ANION GAP 15 12/16/2015 Comp Metabolic Ria542 GLUCOSE 85 mg/dL 12/16/2015 Comp Metabolic Sqe587 Creat 1.2 mg/dL 12/16/2015 Comp Metabolic Lph457 eGFR 65 ml/min/1.73m2 12/16/2015 Comp Metabolic Jqd739 BUN 14 mg/dL 12/16/2015 Comp Metabolic Kni581 B/C Ratio 12.1 Ratio 12/16/2015 Comp Metabolic Mqx825 CALCIUM 9.1 mg/dL 12/16/2015 Comp Metabolic Vil021 ALK PHOS 162 U/L 12/16/2015 Comp Metabolic Qqg209 AST(SGOT) 14 U/L 12/16/2015 Comp Metabolic Fga556 ALT(SGPT) 17 U/L 12/16/2015 Comp Metabolic Lcj924 BILI T 1.0 mg/dL 12/16/2015 Comp Metabolic Uhm461 ALBUMIN 3.4 g/dL 12/16/2015 Comp Metabolic Aan555 TPRO 6.2 g/dL 12/16/2015 Comp Metabolic Wpk370 GLOB 2.9 g/dL 12/16/2015 Comp Metabolic Fwo010 A/G Ratio 1.2 Ratio 12/16/2015 Comp Metabolic Dul421 Osmo 279 mOsmo 12/16/2015 Uric Acid Ord77 [...] 29.9 % 12/16/2015 Cbc With Differential Ord2 [place]% 7.5 % 12/16/2015 Cbc With Differential Ord2 [...] 1.52 K/ul 12/16/2015 Cbc With Differential Ord2 [place] ABS# 0.4 K/ul 12/16/2015 Cbc With Differential [...] C/HDL 4.0 Ratio 07/21/2015 Urine Protein 24Hr Ovi947 U Prot 5.1 mg/dl 05/16/2015 Urine Protein 24Hr Fjo119 U Prot24 71.5 mg/24hr 05/16/2015 Total Volume Urine Jqg833 TV/24hr 1400 ml 05/16/2015 Total Psa Ord10 PSA 0.70 ng/mL 05/15/2015 Renal Pkj959 NA 135 mEq/L 05/15/2015 Renal Fek100 K 3.9 mEq/L 05/15/2015 Renal Woz162 CL 101 mEq/L 05/15/2015 Renal Dsk370 CO2 27.0 mEq/L 05/15/2015 Renal Hlz430 ANION GAP 11 05/15/2015 Renal Xny509 Osmo 274 mOsmo 05/15/2015 Renal Saw968 GLUCOSE 132 mg/dL 05/15/2015 Renal Zhu976 BUN 19 mg/dL 05/15/2015 Renal Aje149 Creat 1.1 mg/dL 05/15/2015 Renal Btn859 eGFR 67 ml/min/1.73m2 05/15/2015 Renal Vbm390 B/C Ratio 17.0 Ratio 05/15/2015 Renal Axv956 CALCIUM 9.6 mg/dL 05/15/2015 Renal Gcs959 PHOS 3.0 mg/dL 05/15/2015 Renal Djv880 ALBUMIN 4.3 g/dL 05/15/2015 Cbc With Differential [...] Result Effective Dates Constitutional No recent illness 01/08/2019 Constitutional No [...] rate 12/25/2018 None Full Exam - General 1995 Cardiovascular extremities Overall: no clubbing 12/25/2018 None [...] Formatting Model/CDA Sections, Assigned to/Sharee Ramirez CPT-4: 94226Hqwehlq 07/05/2018 THER/PROPH/DIAG INJ SC/IM CPT-4: 34253 06/12/2018 TRIAMCINOLONE ACET INJ NOS CPT-4: J3301 06/12/2018 PPPS, SUBSEQ VISIT CPT- 4: G0439 08/03/2017 ADMIN INFLUENZA VIRUS VAC CPT-4: G0008 06/28/2016 FLU VACC PRSV FREE INC ANTIG CPT-4: 91159 06/28/2016 TENIVAC TD VACCINE NO PRSRV 7/> IM CPT-4: 33545 06/28/2016 OCCULT BLOOD FECES CPT- 4: 92395 02/19/2015 Vital Signs Date Vital 01/08/2019 Blood Pressure 1: 128/86 Code: 8480-6 BMI: 28.6 Code: 55376-6 Heart Rate 1: 96 bpm Height: 6' SpO2: 97% Weight: 211 lbs 12/25/2018 Blood Pressure 1: 112/62 Code: 8480-6 BMI: 28.6 Code: 10714-3 Heart Rate 1: 76 bpm Height: 6' SpO2: 96% Weight: 211 lbs 12/13/2018 Blood Pressure 1: 114/78 Code: 8480-6 BMI: 29.4 Code: 88177-4 Heart Rate 1: 73 bpm Height: 6' SpO2: 93% Weight: 217 lbs 11/27/2018 Blood Pressure 1: 110/70 Code: 8480-6 BMI: 28.5 Code: 76608-9 Heart Rate 1: 90 bpm Height: 6' SpO2: 95% Temperature: 36.8 (C) / 98.2 (F) Weight: 210 lbs 8 oz 09/26/2018 Blood Pressure 1: 130/80 Code: 8480-6 BMI: 29.6 Code: 65996-5 Heart Rate 1: 98 bpm Height: 6' SpO2: 93% Weight: 218 lbs 08/10/2018 BMI: 29.4 Code: 86982-9 Height: 6' Weight: 217 lbs 07/26/2018 Blood Pressure 1: 116/72 Code: 8480-6 BMI: 29.4 Code: 14011-6 Heart Rate 1: 102 bpm Height: 6' SpO2: 96% Weight: 217 lbs 07/05/2018 Blood Pressure 1: 132/72 Code: 8480-6 Heart Rate 1: 60 bpm SpO2: 95% 06/12/2018 Blood Pressure 1: 120/78 Code: 8480-6 BMI: 29.6 Code: 83498-7 Heart Rate 1: 103 bpm Height: 6' SpO2: 96% Weight: 218 lbs 05/10/2018 Blood Pressure 1: 114/68 Code: 8480-6 BMI: 29.4 Code: 03031-8 Heart Rate 1: 92 bpm Height: 6' SpO2: 97% Weight: 217 lbs 03/27/2018 Blood Pressure 1: 126/74 Code: 8480-6 BMI: 30.1 Code: 93152-8 Heart Rate 1: 103 bpm Height: 6' SpO2: 96% Weight: 222 lbs 01/25/2018 Blood Pressure 1: 122/70 Code: 8480-6 Blood Pressure 2: 126/73 Code: 8480-6 Heart Rate 1: 63 bpm SpO2: 94% 01/24/2018 Blood Pressure 1: 110/72 Code: 8480-6 BMI: 29.7 Code: 89522-1 Heart Rate 1: 88 bpm Height: 6' SpO2: 95% Weight: 219 lbs 12/08/2017 Blood Pressure 1: 120/68 Code: 8480-6 BMI: 30.0 Code: 43039-5 Heart Rate 1: 91 bpm Height: 6' SpO2: 96% Temperature: 36.7 (C) / 98.1 (F) Weight: 221 lbs 10/27/2017 Blood Pressure 1: 124/76 Code: 8480-6 BMI: 30.1 Code: 45141-7 Heart Rate 1: 69 bpm Height: 6' SpO2: 95% Weight: 222 lbs 09/29/2017 Blood Pressure 1: 118/66 Code: 8480-6 BMI: 29.9 Code: 12567-9 Heart Rate 1: 81 bpm Height: 6' SpO2: 95% Weight: 220 lbs 8 oz 09/01/2017 Blood Pressure 1: 122/82 Code: 8480-6 BMI: 29.6 Code: 73189-3 Heart Rate 1: 75 bpm Height: 6' SpO2: 97% Weight: 218 lbs 08/03/2017 Blood Pressure 1: 120/68 Code: 8480-6 Heart Rate 1: 68 bpm Height: 6' SpO2: 94% Waist Measure (cm): 97 cm 04/26/2017 Blood Pressure 1: 122/72 Code: 8480-6 BMI: 29.4 Code: 97919-9 Heart Rate 1: 85 bpm Height: 6' SpO2: 92% Weight: 217 lbs 01/25/2017 Blood Pressure 1: 118/78 Code: 8480-6 BMI: 29.4 Code: 34133-3 Heart Rate 1: 72 bpm Height: 6' SpO2: 94% Temperature: 36.9 (C) / 98.5 (F) Weight: 217 lbs 10/26/2016 Blood Pressure 1: 152/86 Code: 8480-6 BMI: 29.7 Code: 78318-9 Heart Rate 1: 58 bpm Height: 6' Weight: 219 lbs 09/27/2016 Blood Pressure 1: 138/80 Code: 8480-6 BMI: 29.4 Code: 21352-3 Heart Rate 1: 52 bpm Height: 6' SpO2: 98% Weight: 217 lbs 06/28/2016 Blood Pressure 1: 128/86 Code: 8480-6 BMI: 29.6 Code: 77553-7 Heart Rate 1: 69 bpm Height: 6' SpO2: 93% Weight: 218 lbs 04/27/2016 Blood Pressure 1: 118/82 Code: 8480-6 BMI: 29.3 Code: 83943-5 Heart Rate 1: 85 bpm Height: 6' SpO2: 98% Weight: 216 lbs 02/17/2016 Blood Pressure 1: 132/80 Code: 8480-6 BMI: 28.8 Code: 37401-6 Heart Rate 1: 94 bpm Height: 6' SpO2: 98% Weight: 212 lbs 01/20/2016 Blood Pressure 1: 120/70 Code: 8480-6 BMI: 29.7 Code: 04899-5 Heart Rate 1: 87 bpm Height: 6' SpO2: 92% Weight: 219 lbs 01/06/2016 Blood Pressure 1: 122/88 Code: 8480-6 BMI: 28.8 Code: 14151-1 Heart Rate 1: 83 bpm Height: 6' SpO2: 97% Weight: 212 lbs 12/16/2015 Blood Pressure 1: 98/62 Code: 8480-6 Heart Rate 1: 62 bpm Height: 6' SpO2: 90% Weight: 11/27/2015 Blood Pressure 1: 90/64 Code: 8480-6 Blood Pressure 1: 110/80 Code: 8480-6 Heart Rate 1: 91 bpm Height: 6' SpO2: 92% Weight: 07/30/2015 Blood Pressure 1: 112/82 Code: 8480-6 BMI: 30.5 Code: 65130-6 Heart Rate 1: 82 bpm Height: 6' SpO2: 92% Weight: 225 lbs 06/09/2015 Blood Pressure 1: 130/76 Code: 8480-6 BMI: 31.1 Code: 31275-3 Heart Rate 1: 65 bpm Height: 6' SpO2: 96% Weight: 229 lbs 04/29/2015 Blood Pressure 1: 118/78 Code: 8480-6 BMI: 30.7 Code: 60891-5 Heart Rate 1: 70 bpm Height: 6' Weight: 226 lbs 02/19/2015 Blood Pressure 1: 118/70 Code: 8480-6 BMI: 29.7 Code: 68905-3 Heart Rate 1: 68 bpm Height: 6' Weight: 219 lbs Functional Status No Functional Status data History of Present Illness Symptom Name Status Result Effective Date Notes Limitation on Activities Denies moderately limits activities [...] Directive data Encounters Encounter Performer Location Codes ([id number]) 52278 EST. PATIENT, LEVEL III Diagnosis: Other allergic rhinitis[ICD10: J30.89] Merline Butcher MD, [facility] CPT-4: 04507 01/08/2019 [id number] EST. PATIENT, LEVEL IV Diagnosis: Other fatigue[ICD10: R53.83] Diagnosis: Obstructive sleep apnea (adult) (pediatric)[ICD10: G47.33] Diagnosis: Other malaise[ICD10: R53.81] Mady Butcher MD, [facility] CPT-4: 88242 12/25/2018 ([id number]) 22466 EST. PATIENT, LEVEL IV Diagnosis: Shortness of breath[ICD10: R06.02] Diagnosis: Other fatigue[ICD10: R53.83] Diagnosis: Obstructive sleep apnea (adult) (pediatric)[ICD10: G47.33] Diagnosis: Other malaise[ICD10: R53.81] Lesley Butcher MD, [facility] CPT-4: 23269 12/13/2018 ([id number]) 96843 EST. PATIENT, LEVEL IV Diagnosis: Shortness of breath[ICD10: R06.02] Diagnosis: Dizziness and giddiness[ICD10: R42] Diagnosis: Other fatigue[ICD10: R53.83] Diagnosis: Essential (primary) hypertension[ICD10: I10] Diagnosis: Muscle weakness (generalized)[ICD10: M62.81] Merline Butcher MD, [facility] CPT-4: 64413 11/27/2018 ([id number]) 13167 EST. PATIENT, LEVEL IV Diagnosis: Essential (primary) hypertension[ICD10: I10] Diagnosis: Vertigo of central origin, right ear[ICD10: H81.41] Diagnosis: Low back pain[ICD10: M54.5] Lesley Butcher MD, [facility] CPT-4: 54767 09/26/2018 ([id number]) 06875 EST. PATIENT, LEVEL III Diagnosis: Dizziness and giddiness[ICD10: R42] Diagnosis: Vertigo of central origin, right ear[ICD10: H81.41] Diagnosis: Essential (primary) hypertension[ICD10: I10] Lesley Butcher MD, [facility] CPT-4: 17398 07/26/2018 ([id number]) 17971 EST. PATIENT, LEVEL III Diagnosis: Essential (primary) hypertension[ICD10: I10] Lesley Butcher MD [facility] CPT-4: 65398 06/12/2018 ([id number]) 70085 EST. PATIENT, LEVEL IV Diagnosis: Other iron deficiency anemias[ICD10: D50.8] Diagnosis: Weakness[ICD10: R53.1] Diagnosis: Diverticulosis of large intestine without perforation or abscess with bleeding[ICD10: K57.31] Lesley Butcher MD [facility] CPT-4: 89533 05/10/2018 ([id number]) 63212 EST. PATIENT, LEVEL IV Diagnosis: Essential (primary) hypertension[ICD10: I10] Diagnosis: Major depressive disorder, recurrent, mild[ICD10: F33.0] Diagnosis: Sensorineural hearing loss, bilateral[ICD10: H90.3] Lesley Butcher MD [facility] CPT-4: 21908 03/27/2018 ([id number]) Miscellaneous no charge Diagnosis: Essential (primary) hypertension[ICD10: I10] Mady Butcher MD, [facility] CPT-4: 42704 01/25/2018 ([id number]) 23791 EST. PATIENT, LEVEL IV Diagnosis: Essential (primary) hypertension[ICD10: I10] Diagnosis: Sensorineural hearing loss, bilateral[ICD10: H90.3] Diagnosis: Mixed hyperlipidemia[ICD10: E78.2] Diagnosis: Major depressive disorder, recurrent, mild[ICD10: F33.0] Lesley Butcher MD [facility] CPT-4: 00726 01/24/2018 20654 EST. PATIENT, LEVEL IV Diagnosis: Other malaise[ICD10: R53.81] Diagnosis: Fever, unspecified[ICD10: R50.9] Mady Butcher MD [facility] CPT-4: 15305 12/08/2017 ([id number]) 46552 EST. PATIENT, LEVEL III Diagnosis: Essential (primary) hypertension[ICD10: I10] Lesley Butcher MD [facility] CPT-4: 38038 10/27/2017 ([id number]) 76576 EST. PATIENT, LEVEL III Diagnosis: Benign prostatic hyperplasia with lower urinary tract symptoms[ICD10: N40.1] Diagnosis: Dysphagia, pharyngeal phase[ICD10: R13.13] Lesley Butcher MD, [facility] CPT-4: 50811 09/29/2017 ([id number]) 54430 EST. PATIENT, LEVEL IV Diagnosis: Essential (primary) hypertension[ICD10: I10] Diagnosis: Major depressive disorder, recurrent, mild[ICD10: F33.0] Diagnosis: Sensorineural hearing loss, bilateral[ICD10: H90.3] Lesley Butcher MD, [facility] CPT-4: 79529 09/01/2017 ([id number]) 05636 EST. PATIENT, LEVEL IV Diagnosis: Essential (primary) hypertension[ICD10: I10] Diagnosis: Major depressive disorder, recurrent, mild[ICD10: F33.0] Diagnosis: Mixed hyperlipidemia[ICD10: E78.2] Lesley Butcher MD, [facility] CPT- 4: 48908 04/26/2017 ([id number]) 62052 EST. PATIENT, LEVEL IV Diagnosis: Essential (primary) hypertension[ICD10: I10] Diagnosis: Major depressive disorder, recurrent, mild[ICD10: F33.0] Diagnosis: Urge incontinence[ICD10: N39.41] Lesley Butcher MD, [facility] CPT-4: 82366 01/25/2017 ([id number]) 92317 EST. PATIENT, LEVEL IV Diagnosis: Essential (primary) hypertension[ICD10: I10] Diagnosis: Major depressive disorder, recurrent, mild[ICD10: F33.0] Diagnosis: Urge incontinence[ICD10: N39.41] Lesley Butcher MD, [facility] CPT-4: 28891 10/26/2016 ([id number]) 83987 EST. PATIENT, LEVEL III Diagnosis: Essential (primary) hypertension[ICD10: I10] Diagnosis: Major depressive disorder, recurrent, mild[ICD10: F33.0] Diagnosis: Urge incontinence[ICD10: N39.41] Lesley Butcher MD, [facility] CPT-4: 55660 09/27/2016 ([id number]) 74781 EST. PATIENT, LEVEL IV Diagnosis: Essential (primary) hypertension[ICD10: I10] Diagnosis: Encounter for immunization[ICD10: Z23] Diagnosis: Laceration without foreign body of left forearm, initial encounter[ICD10: S51.812A] Diagnosis: Laceration without foreign body of right forearm, initial encounter[ICD10: S51.811A] Diagnosis: Major depressive disorder, recurrent, mild[ICD10: F33.0] Lesley Butcher MD, [facility] CPT-4: 50036 06/28/2016 ([id number]) 84419 EST. 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 PATIENT, LEVEL IV Diagnosis: Weakness[ICD10: R53.1] Diagnosis: Gout, unspecified[ICD10: M10.9] Diagnosis: Hypotension, unspecified[ICD10: I95.9] Lesley Butcher MD, [facility] CPT-4: 14844 12/16/2015 ([id number]) Patient admitted to the hospital from clinic (NO CHARGE) Diagnosis: Hypoxemia[ICD10: R09.02] Diagnosis: Weakness[ICD10: R53.1] Diagnosis: Dyspnea, unspecified[ICD10: R06.00] Mady Uzair Butcher MD, [facility] CPT- 4: 62150V 11/27/2015 ([id number]) 38599 EST. PATIENT, LEVEL III Diagnosis: Essential (primary) hypertension[ICD10: I10] Diagnosis: Gastro-esophageal reflux disease without esophagitis[ICD10: K21.9] Lesley Butcher MD, [facility] CPT-4: 13136 07/30/2015 ([id number]) 81709 EST. PATIENT, LEVEL III Diagnosis: ESSENTIAL HYPERTENSION[ICD9: 401.9] Merlinebc Butcher MD, [facility] CPT-4: 89800 06/09/2015 ([id number]) 18828 EST. PATIENT, LEVEL III Diagnosis: ESSENTIAL HYPERTENSION[ICD9: 401.9] Lesley Butchre MD, [facility] CPT- 4: 39226 04/29/2015 ([id number]) OFFICE/OUTPATIENT VISIT NEW Diagnosis: ESSENTIAL HYPERTENSION[ICD9: 401.9] Diagnosis: DEPRESSIVE DISORDER NEC[ICD9: 311] Diagnosis: Enlarged prostate[ICD9: 600.00] Diagnosis: Nasal inflammation due to allergen[ICD9: 477.9] Lesley Butcher MD, [facility] CPT-4: 79713 02/19/2015 Plan of Care Planned Activity Notes Codes Status Date Visit Plan: Allergies - chronic - recommended [...] in the nasal steroid allergy spray. 01/08/2019 Patient Education: Patient Medication Summary Completed 01/08/2019 Visit Plan: Fatigue, shortness of breath, dizziness - pt is to continue PT, pt is to follow up with Dr. Panda and Dr. Harvey and is to notify clinic with any changes in the current treatment plan. 12/25/2018 Appointment: Mady Dunne WPtel: [phone] [facility] (15 min) Moderate 12/25/2018 Patient Education: Patient [...] 96% 12/13/2018 Appointment: Lesley Butcher WPtel: [phone] [facility] (15 min) Moderate 12/13/2018 Patient Education: Patient Medication Summary Completed 12/13/2018 Visit Plan: LCP-bpllszp-prcfbhqwk of breath -patient reports worsening of chronic symptoms -will check EKG and cardiac enzymes to evaluate for acute changes -recommend patient follow up with his international operations manager, Dr Sharyn vu -patient, and daughter verbalized understanding of plan. Generalized weakness-discussed PT referral after cleared by cardiology -patient's will call us when she wants to have it set up HTN-no change but monitor at home 11/27/2018 [facility]ment: [phone] [place] (15 min) Moderate 11/27/2018 Patient Education: [...] - keep appt with Dr. Montero - mikeay to hold plavix for 72 hours prior to planned back injection. Skin lesion left lower lip - discussed with patient he needs this lesion biopsied since it has not healed after the last two cryotherapy sessions. 09/26/2018 Appointment: [phone] (15 min) Moderate 09/26/2018 Patient Education: Patient [...] surrogate. 08/10/2018 Appointment: [facility]el[phone] [facility] [facility] - Annual Wellness Visit 08/10/2018 Patient [...] home. 07/26/2018 Appointment: Les[facility] Butcher [phone] [facility] (15 min) Moderate 07/26/2018 Patient Education: Patient [...] his dexamethasone. 06/12/2018 Appointment: Lesley Butcher WPtel: [phone] [facility] (15 min) Moderate 06/12/2018 Patient Education: Patient Medication Summary Completed 06/12/2018 Visit Plan: Diverticulosis with recent GI bleeding - improved - continue with supportive care, avoid foods which cause any abdominal pain - monitor symptoms - call if any pain or bleeding recurs. Anemia - check labs today. Weakness - continue with increasing of activity. 05/10/2018 Appointment: Lesley Butcher WPtel: [phone] [facility] (30 min) Complex 05/10/2018 Patient Education: [...] cochlear implant. 03/27/2018 Appointment: Lesley Butcher WPtel: [phone] [facility] (15 min) Moderate 03/27/2018 Patient Education: [...] medications. 01/24/2018 Appointment: Lesley Butcher WPtel: [phone] [facility] (15 min) Moderate 01/24/2018 Patient Education: Patient Medication Summary Completed 01/24/2018 Visit Plan: Influenza - pt started on tamiflu - pt to start on anti-inflammatories, tylenol and monitor symptoms. Pt to call if not improving. Pt to alert any close contacts as to illness. 12/08/2017 Appointment: [facility]el[phone] [facility] (30 min) Complex 12/08/2017 Patient Education: [...] home. 10/27/2017 Appointment: Les[facility] But[phone] [facility] (15 min) Moderate 10/27/2017 Patient Education: Patient Medication Summary Completed 10/27/2017 Referral: External, Ordering Provider Referral Initiated 10/12/2017 Visit Plan: BPH - continue with dutasteride and flomax Dysphagia - referral to Dr. Kumar for EGD - question stricture - dysphagia intermittently - hx of stricture. 09/29/2017 Appointment: Les[facility] Butcher [facility]el[phone] [facility] (15 min) Moderate 09/29/2017 Patient Education: Patient Medication Summary Completed 09/29/2017 Care Plan: Referral Order SNOMED-CT : [id number] Pending 09/29/2017 Visit Plan: Hypertension - well [...] recommended patient to have an evaluation at [facility] to see if he has potential for cochlear implant. 09/01/2017 Appointment: Lesley Butcher WPtel: [facility] (15 min) Moderate 09/01/2017 Patient Education: Patient Medication Summary Completed 09/01/2017 Care Plan: Referral Order SNOMED-CT : [id number] Pending 09/01/2017 Visit Plan: Medicare Exam - [...] surrogate. 08/03/2017 Appointment: M[facility] Dunne [facility]Ptel[phone] [facility] [facility] - Welcome to Medicare visit [...] medications. 04/26/2017 Appointment: Lesley Butcher [facility]Ptel[phone] [facility] (15 min) Moderate 04/26/2017 Patient Education: Patient [...] daily. 01/25/2017 Appointment: Les[facility] Butcher [facility]el[phone] (30 min) Complex 01/25/2017 Patient Education: Patient [...] detrol [place] 10/26/2016 Appointment: Lesley Butcher WPtel: [phone] [facility] (15 min) Moderate 10/26/2016 Patient Education: [...] occur. 09/27/2016 Appointment: Lesley Butcher WPtel: [phone] [facility] (15 min) Moderate 09/27/2016 Patient Education: [...] andrea 06/28/2016 Appointment: Les[facility] Butcher [facility]Ptel[facility] [phone] [facility] (15 min) Moderate 06/28/2016 Patient Education: Patient [...] Vang-increase dexamethasone x 1 month 02/17/2016 Appointment: Milton Merline WPtel: [facility] (30 min) Complex 02/17/2016 Patient Education: [...] Summary Completed 12/16/2015 Appointment: Lesley Butcher WPtel: [address] [place], [place] [address] (15 min) Moderate 12/04/2015 Appointment: Les[facility] Butcher [facility]Ptel: [phone] [facility] (15 min) Moderate 12/02/2015 Visit Plan: Admission [...] PHARMACY 07/30/2015 Appointment: Lesley Butcher [facility]Ptel[facility] [phone] [facility] (15 min) Moderate 07/30/2015 Patient Education: Patient [...] home. 04/29/2015 Appointment: Lesley Butcher [facility]Ptel: [phone] [facility] (15 min) Moderate 04/29/2015 Patient Education: Patient [...] External, Ordering Provider Referral Appointment Requested Referral: [facility] 09/12 Referral info faxed Appointment Requested Referral: [facility] Referral Appointment Requested Instructions Comment [...] planned injection in back and call the buncher operator about a biopsy of the lesion [...] ILLNESS. CHECK CARDIAC ENYZMES AND EKG . SSW-ljxgcpk-ynmoslzqr of breath -patient reports worsening of chronic symptoms -will check EKG and cardiac enzymes to evaluate for acute changes -recommend patient follow up with his international operations manager, Dr Stokes -patient, and daughter verbalized [...] recommended patient to have an evaluation at [facility] to see if he has [...] clinic with any questions or concerns. . Shortness of breath - Hx of [...]
--- OUTSIDE RECORDS SUMMARY | 2019-03-23 19:59 | XMS REPORT | CCD ---
Author Author [facility] Organization [facility] Address [address] [place] [address] Phone Care Team Providers Care Larry Car Operator Name Role Phone PP Unavailable CCM Unavailable Summary Purpose Interface Exchange Insurance Providers Payer name Policy type / Coverage type Covered republican ID Effective Begin Date Effective End Date WPS Medicare Part B Medicare Part B [id number] 2018 Unknown [facility] Medicare Part B [id number] 2018 Unknown Family history Father Diagnosis Age At Onset Hypertension Unknown Coronary Artery Disease Unknown Sister Diagnosis Age At Onset Heart disease Unknown Mother Diagnosis Age At Onset Coronary Artery Disease Unknown Hypertension Unknown Social History Social History Element Codes Description Effective Dates Marital status Unknown 02/19/2015 Number of children Unknown 2 02/19/2015 Employment Unknown Retired 02/19/[address]: 199487435 Has never smoked or chewed tobacco 02/19/2015 Alcohol history Unknown occasionally drinks alcohol 02/19/2015 Allergies, Adverse Reactions, Alerts Substance Reaction Codes Entered Date Inactivated Date Status bactrim RxNorm: 796070 12/19/2015 No Inactive Date Active ciprofloxacin RxNorm: 54392 02/18/2015 No Inactive Date Active Past Medical [...] Instructions pantoprazole 40 mg tablet,delayed release RxNorm: 336510 TAKE ONE TABLET BY MOUTH ONCE DAILY AT BEDTIME 11/27/2018 No Stop Date Active atorvastatin 40 mg tablet RxNorm: 819126 1 Tablet(s) PO daily 09/26/2018 10/25/2018 Inactive dexamethasone 0.5 mg tablet RxNorm: 512040 TAKE 1 TABLET BY MOUTH ONCE DAILY 08/29/2018 No Stop Date Active clonazepam 1 mg tablet RxNorm: 992274 1/2 Tablet(s) PO QHS 08/24/2018 12/21/2018 Inactive allopurinol 100 mg tablet RxNorm: 447994 TAKE ONE TABLET BY MOUTH ONCE DAILY 08/03/2018 No Stop Date Active citalopram 40 mg tablet RxNorm: 720773 TAKE ONE TABLET BY MOUTH ONCE DAILY 06/13/2018 No Stop Date Active Kenalog 40 mg/mL suspension for injection RxNorm: 4346680 Milliliter(s) Inj 06/12/2018 06/12/2018 Inactive clonazepam 1 mg tablet RxNorm: 585534 1 Tablet(s) PO QHS 06/12/2018 08/23/2018 Inactive losartan 50 mg tablet RxNorm: 931985 1/2 Tablet(s) PO daily 05/24/2018 No Stop Date Active clonazepam 1 mg tablet RxNorm: 279776 1/2 Tablet(s) TAKE ONE TABLET BY MOUTH ONCE DAILY AT BEDTIME AND ONE TABLET THREE TIMES DAILY NEEDED 05/24/2018 06/11/2018 Inactive citalopram 40 mg tablet RxNorm: 439326 1/2 Tablet(s) TAKE ONE TABLET BY MOUTH ONCE DAILY 05/24/2018 09/25/2018 Inactive spironolactone 25 mg tablet RxNorm: 899158 TAKE ONE TABLET BY MOUTH ONCE DAILY 05/22/2018 No Stop Date Active dexamethasone 0.5 mg tablet RxNorm: 986775 TAKE ONE TABLET BY MOUTH ONCE DAILY 02/21/2018 08/28/2018 Inactive Flomax 0.4 mg capsule RxNorm: 623100 TAKE ONE CAPSULE BY MOUTH ONCE DAILY IN THE EVENING 12/19/2017 No Stop Date Active Tamiflu 75 mg capsule RxNorm: 036307 1 Capsule(s) PO BID 12/08/2017 12/12/2017 Inactive clonazepam 1 mg tablet RxNorm: 764854 Tablet(s) TAKE ONE TABLET BY MOUTH ONCE DAILY AT BEDTIME AND ONE TABLET THREE TIMES DAILY NEEDED 11/28/2017 01/26/2018 Inactive pantoprazole 40 mg tablet,delayed release RxNorm: 106012 TAKE ONE TABLET BY MOUTH ONCE DAILY AT BEDTIME 11/07/2017 11/26/2018 Inactive allopurinol 100 mg tablet RxNorm: 206652 TAKE ONE TABLET BY MOUTH ONCE DAILY 10/03/2017 08/02/2018 Inactive pantoprazole 40 mg tablet,delayed release RxNorm: 006110 1 Tablet(s) PO BID 09/01/2017 05/28/2018 Inactive Vitamin B-6 100 mg tablet RxNorm: 392092 1 Tablet(s) PO daily 09/01/2017 06/11/2018 Inactive dutasteride 0.5 mg capsule RxNorm: 758346 1 Capsule(s) PO QPM 09/01/2017 06/11/2018 Inactive spironolactone 25 mg tablet RxNorm: 082894 TAKE ONE TABLET BY MOUTH ONCE DAILY 08/15/2017 05/21/2018 Inactive citalopram 40 mg tablet RxNorm: 137186 TAKE ONE TABLET BY MOUTH ONCE DAILY 08/08/2017 05/04/2018 Inactive dexamethasone 0.5 mg tablet RxNorm: 736912 TAKE ONE TABLET BY MOUTH ONCE DAILY 08/08/2017 11/05/2017 Inactive clonazepam 1 mg tablet RxNorm: 029467 TAKE ONE TABLET BY MOUTH ONCE DAILY AT BEDTIME AND ONE THREE TIMES DAILY NEEDED 05/12/2017 08/08/2017 Inactive clonazepam 1 mg tablet RxNorm: 200615 1 Tablet(s) PO QHS AND 1 TAB PO TID PRN 05/12/2017 05/13/2017 Inactive oxybutynin chloride ER 10 mg tablet,extended release 24 hr RxNorm: 887845 1 Tablet(s) PO daily 04/29/2017 08/02/2017 Inactive dexamethasone 0.5 mg tablet RxNorm: 180534 TAKE ONE TABLET BY MOUTH ONCE DAILY 02/14/2017 04/14/2017 Inactive Flomax 0.4 mg capsule RxNorm: 850468 TAKE ONE CAPSULE BY MOUTH ONCE DAILY IN THE EVENING 02/14/2017 11/10/2017 Inactive pantoprazole 40 mg tablet,delayed release RxNorm: 486843 TAKE ONE TABLET BY MOUTH ONCE DAILY AT BEDTIME 02/14/2017 08/31/2017 Inactive oxybutynin chloride ER 10 mg tablet,extended release 24 hr RxNorm: 485688 1 Tablet(s) PO daily 01/25/2017 04/24/2017 Inactive dexamethasone 0.5 mg tablet RxNorm: 552312 TAKE ONE TABLET BY MOUTH ONCE DAILY 11/10/2016 12/09/2016 Inactive oxybutynin chloride ER 5 mg tablet,extended release 24 hr RxNorm: 380074 1 Tablet(s) PO daily 10/28/2016 10/27/2016 Inactive oxybutynin chloride ER 5 mg tablet,extended release 24 hr RxNorm: 298909 1 Tablet(s) PO daily 10/28/2016 01/24/2017 Inactive Detrol LA 2 mg capsule,extended release RxNorm: 548023 1 Capsule(s) PO QPM 10/26/2016 10/27/2016 Inactive clonazepam 1 mg tablet RxNorm: 961120 1 Tablet(s) PO QHS AND 1 TAB PO TID PRN 10/20/2016 04/17/2017 Inactive dexamethasone 0.5 mg tablet RxNorm: 314454 TAKE ONE TABLET BY MOUTH ONCE DAILY 10/06/2016 11/04/2016 Inactive allopurinol 100 mg tablet RxNorm: 138206 1 Tablet(s) PO daily 09/30/2016 09/24/2017 Inactive Vesicare 5 mg tablet RxNorm: 069848 1 Tablet(s) PO QPM 09/27/2016 12/12/2016 Inactive spironolactone 25 mg tablet RxNorm: 883556 1 Tablet(s) PO daily 08/06/2016 07/31/2017 Inactive citalopram 40 mg tablet RxNorm: 983199 1 Tablet(s) PO daily 06/28/2016 06/22/2017 Inactive Plavix 75 mg tablet RxNorm: 349550 1 Tablet(s) PO daily 04/27/2016 No Stop Date Active iron ER 159 mg (45 mg iron) tablet,extended release RxNorm: 751551 1 Tablet(s) PO daily 04/27/2016 08/31/2017 Inactive dexamethasone 0.5 mg tablet RxNorm: 878810 1/2 Tablet(s) PO daily 04/27/2016 02/20/2018 Inactive allopurinol 100 mg tablet RxNorm: 595826 1 Tablet(s) PO daily 04/27/2016 09/29/2016 Inactive clonazepam 1 mg tablet RxNorm: 925395 1 Tablet(s) PO QHS and 1 tab po TID prn 04/14/2016 10/07/2016 Inactive allopurinol 100 mg tablet RxNorm: 558286 1 Tablet(s) PO daily 02/17/2016 04/26/2016 Inactive citalopram 20 mg tablet RxNorm: 719917 1 Tablet(s) PO daily 01/20/2016 06/27/2016 Inactive Flomax 0.4 mg capsule RxNorm: 827284 1 Capsule(s) PO QPM 01/20/2016 01/13/2017 Inactive [SAVINGS FOR NON-COVERED DRUGS -- BIN:[id number], PCN: ASPROD1, Group: XXXXX, ID# [id number], Questions: . THIS IS NOT INSURANCE.] pantoprazole 40 mg tablet,delayed release RxNorm: 248672 1 Tablet(s) PO QHS 01/20/2016 01/13/2017 Inactive Colcrys 0.6 mg tablet RxNorm: 653394 1 Tablet(s) PO daily 01/06/2016 03/05/2016 Inactive take daily x 7 days then daily as needed for gout flair colchicine 0.6 mg tablet RxNorm: 328914 1 Tablet(s) PO BID 12/30/2015 01/01/2016 Inactive doxycycline hyclate 100 mg tablet RxNorm: 138788 1 Tablet(s) PO BID 12/19/2015 12/28/2015 Inactive doxycycline hyclate 100 mg tablet RxNorm: 097142 1 Tablet(s) PO BID 12/19/2015 12/18/2015 Inactive allopurinol 100 mg tablet RxNorm: 190050 1 Tablet(s) PO daily 12/16/2015 02/16/2016 Inactive colchicine 0.6 mg tablet RxNorm: 276906 Tablet(s) PO 1.2 mg PO in the morning and 0.6 mg at night for 2 days. 12/16/2015 12/29/2015 Inactive allopurinol 100 mg tablet RxNorm: 898580 1 Tablet(s) PO daily 12/16/2015 12/15/2015 Inactive Protonix 40 mg tablet,delayed release RxNorm: 016630 1 Tablet(s) PO daily 12/16/2015 01/14/2016 Inactive Bactrim DS 800 mg-160 mg tablet RxNorm: 378454 1 Tablet(s) PO BID 12/16/2015 12/18/2015 Inactive colchicine 0.6 mg tablet RxNorm: 960922 Tablet(s) PO 1.2 mg for the first dose and 0.6 mg an hour after 12/15/2015 12/15/2015 Inactive dexamethasone 0.5 mg tablet RxNorm: 278851 1 Tablet(s) PO 12/12/2015 02/09/2016 Inactive Plavix 75 mg tablet RxNorm: 460247 1 Tablet(s) PO every other day 12/12/2015 04/09/2016 Inactive nitroglycerin 0.4 mg sublingual tablet RxNorm: 535006 1 Tablet(s) SL x3 in 15 min as needed 12/12/2015 04/26/2016 Inactive clonazepam 1 mg tablet RxNorm: 712629 1 Tablet(s) PO QHS and 1 tab po TID prn 12/11/2015 12/03/2016 Inactive [place] 5 mg-325 mg tablet RxNorm: 308457 1-2 Tablet(s) PO Q6 as needed 12/11/2015 09/26/2016 Inactive clonazepam 1 mg tablet RxNorm: 121619 1 Tablet(s) PO QHS and 1 tab po TID prn 12/04/2015 12/10/2015 Inactive Flomax 0.4 mg capsule RxNorm: 503333 1 Capsule(s) PO QPM 09/22/2015 01/19/2016 Inactive [SAVINGS FOR NON-COVERED DRUGS -- BIN:[id number], PCN: ASPROD1, Group: XXXXX, ID# [id number], Questions: . THIS IS NOT INSURANCE.] Flomax 0.4 mg capsule RxNorm: 129618 1 Capsule(s) PO QPM 09/16/2015 09/21/2015 Inactive [SAVINGS FOR NON-COVERED DRUGS -- BIN:[id number], PCN: ASPROD1, Group: XXXXX, ID# [id number], Questions: . THIS IS NOT INSURANCE.] clonazepam 1 mg tablet RxNorm: 860694 1 Tablet(s) PO QHS 08/29/2015 12/03/2015 Inactive coenzyme Q10 10 mg tablet RxNorm: 630597 1 Tablet(s) PO daily 07/30/2015 01/05/2016 Inactive spironolactone 25 mg tablet RxNorm: 311033 1 Tablet(s) PO daily 07/28/2015 07/21/2016 Inactive spironolactone 25 mg tablet RxNorm: 286843 1 Tablet(s) PO daily 07/22/2015 07/27/2015 Inactive clonazepam 1 mg tablet RxNorm: 625005 1 Tablet(s) PO QHS 05/23/2015 08/28/2015 Inactive losartan 25 mg tablet RxNorm: 788826 1 Tablet(s) PO daily 02/19/2015 03/20/2015 Inactive Flonase Allergy Relief 50 mcg/actuation nasal spray,suspension RxNorm: 1 [place] NASAL BID 02/19/2015 04/26/2016 Inactive [SAVINGS FOR NON-COVERED DRUGS -- BIN:[id number], PCN: ASPROD1, Group: XXXXX, ID# [id number], Questions: . THIS IS NOT INSURANCE.] Flomax 0.4 mg capsule RxNorm: 452771 1 Capsule(s) PO QPM 02/19/2015 09/15/2015 Inactive [SAVINGS FOR NON-COVERED DRUGS -- BIN:[id number], PCN: ASPROD1, Group: XXXXX, ID# [id number], Questions: . THIS IS NOT INSURANCE.] citalopram 20 mg tablet RxNorm: 797784 1 Tablet(s) PO daily 02/19/2015 03/20/2015 Inactive atenolol 25 mg tablet RxNorm: 889902 1 Tablet(s) PO daily 02/19/2015 03/20/2015 Inactive Lipitor 20 mg tablet RxNorm: 389000 1 Tablet(s) PO daily 02/19/2015 03/20/2015 Inactive vitamin B complex oral RxNorm: 02176 oral No Start Date Active Claritin-D 24 Hour oral RxNorm: 005277 oral No Start Date Active Lipitor oral RxNorm: 19169 oral No Start Date Active cetirizine 10 mg tablet RxNorm: 5991683 1 Tablet(s) PO daily No Start Date Active Aleve 220 mg tablet RxNorm: 326377 Tablet(s) PO as needed No Start Date Active Vitamin D3 1,000 unit capsule RxNorm: 025577 2 Capsule(s) PO daily No Start Date Active Centrum Complete oral RxNorm: 73551 oral No Start Date Active glucosamine HCl 1,500 mg tablet RxNorm: 264911 1 Tablet(s) with 1200 mg chrondroitin PO daily No Start Date 08/01/2018 Inactive ranitidine 150 mg tablet RxNorm: 524424 1 Tablet(s) PO TID No Start Date 12/11/2015 Inactive [place] 5 mg-325 mg tablet RxNorm: 611094 1-2 Tablet(s) PO Q6 as needed No Start Date 12/10/2015 Inactive krill oil oral RxNorm: 68390 oral No Start Date 08/07/2018 Inactive Vitamin B-6 100 mg tablet RxNorm: 013488 1 Tablet(s) PO TID No Start Date 08/31/2017 Inactive spironolactone 25 mg tablet RxNorm: 837957 1 Tablet(s) PO daily No Start Date 07/21/2015 Inactive Vitamin D3 oral RxNorm: 2418 oral No Start Date 02/17/2016 Inactive clonazepam 1 mg tablet RxNorm: 625059 1 Tablet(s) PO daily No Start Date 05/22/2015 Inactive Glucosamine oral RxNorm: 4845 oral No Start Date 04/26/2016 Inactive losartan 50 mg tablet RxNorm: 500710 1 Tablet(s) PO daily No Start Date 05/23/2018 Inactive Plavix 75 mg tablet RxNorm: 079634 1 Tablet(s) PO every other day No Start Date 12/11/2015 Inactive Osteo Bi-Flex oral RxNorm: 1958564 oral No Start Date 09/01/2017 Inactive iron ER 159 mg (45 mg iron) tablet,extended release RxNorm: 669368 1 Tablet(s) PO BID No Start Date 04/26/2016 Inactive amlodipine 5 mg tablet RxNorm: 990099 1 Tablet(s) PO daily No Start Date 01/05/2016 Inactive aspirin 81 mg tablet,delayed release RxNorm: 559639 1 Tablet(s) PO daily No Start Date 05/09/2018 Inactive dexamethasone 0.5 mg tablet RxNorm: 130410 1 Tablet(s) PO No Start Date 12/11/2015 Inactive Vitamin B-12 1,000 mcg tablet RxNorm: 690466 6 Tablet(s) PO every other day No Start Date 06/11/2018 Inactive colchicine 0.6 mg tablet RxNorm: 303978 Tablet(s) PO 1.2 mg for the first dose and 0.6 mg an hour after No Start Date 12/14/2015 Inactive nitroglycerin 0.4 mg sublingual tablet RxNorm: 169947 1 Tablet(s) SL x3 in 15 min as needed No Start Date 12/11/2015 Inactive Fish Oil 1,000 mg capsule RxNorm: 1 Capsule(s) PO daily No Start Date 04/26/2016 Inactive Ecotrin Low Strength 81 mg tablet,enteric coated RxNorm: 4152330 1 Tablet(s) PO daily No Start Date 09/27/2016 Inactive Medication Administered Medication Codes Instructions Start Date Status Kenalog 40 mg/mL suspension for injection RxNorm: 0111430 Milliliter 06/12/2018 No longer Active Immunizations Vaccine Codes Date Status Influenza CVX: 141 07/05/2018 completed Influenza CVX: 141 08/01/2017 completed Pneumococcal CVX: 33 08/01/2017 completed Influenza CVX: 141 06/28/2016 completed Tetanus, Diptheria, Pertussis CVX: 113 06/28/2016 completed Tetanus/Diptheria CVX: 113 06/28/2016 completed Pneumococcal Unknown 08/04/2015 completed Influenza CVX: 141 04/16/2014 completed Pneumococcal CVX: 33 05/15/2008 completed Assessments Condition Codes Effective Dates Other fatigue ICD-10: R53.83 ICD-9: 780.79 12/25/2018 [...] Reason For Visit Effective Dates Notes fatigue 12/25/2018 fatigue 12/13/2018 fatigue 11/27/2018 dyspepsia [...] 30.4 pg 10/20/2018 Cbc With Differential Ord2 [place]% 5.7 % 10/20/2018 Cbc With Differential Ord2 [...] 1.69 K/ul 10/20/2018 Cbc With Differential Ord2 [place] ABS# 0.6 K/ul 10/20/2018 Cbc With Differential Ord2 Eos ABS# 0.0 K/ul 10/20/2018 Cbc With Differential Ord2 Baso ABS# 0.0 K/ul 10/20/2018 Comp Metabolic Rqw714 NA 140 mEq/L 10/20/2018 Comp Metabolic Bat307 K 4.0 mEq/L 10/20/2018 Comp Metabolic Ssh202 CL 104 mEq/L 10/20/2018 Comp Metabolic Mkl324 CO2 28.0 mEq/L 10/20/2018 Comp Metabolic Duv522 ANION GAP 12 10/20/2018 Comp Metabolic Lhy254 GLUCOSE 113 mg/dL 10/20/2018 Comp Metabolic Vse886 Creat 1.0 mg/dL 10/20/2018 Comp Metabolic Csv895 eGFR 75 ml/min/1.73m2 10/20/2018 Comp Metabolic Uqc648 BUN 18 mg/dL 10/20/2018 Comp Metabolic Rig370 B/C Ratio 17.8 Ratio 10/20/2018 Comp Metabolic Sam941 CALCIUM 9.8 mg/dL 10/20/2018 Comp Metabolic Xin170 ALK PHOS 70 U/L 10/20/2018 Comp Metabolic Ixj355 AST(SGOT) 15 U/L 10/20/2018 Comp Metabolic Xoe431 ALT(SGPT) 18 U/L 10/20/2018 Comp Metabolic Dlf456 BILI T 1.1 mg/dL 10/20/2018 Comp Metabolic Xjv227 ALBUMIN 4.4 g/dL 10/20/2018 Comp Metabolic Sbp000 TPRO 6.9 g/dL 10/20/2018 Comp Metabolic Trr157 GLOB 2.5 g/dL 10/20/2018 Comp Metabolic Jzn960 A/G Ratio 1.7 Ratio 10/20/2018 Comp Metabolic Myk233 Osmo 282 mOsmo 10/20/2018 Urinalysis Ord28 U-Color [...] 29.0 pg 07/14/2018 Cbc With Differential Ord2 [place]% 7.5 % 07/14/2018 Cbc With Differential Ord2 [...] 1.92 K/ul 07/14/2018 Cbc With Differential Ord2 [place] ABS# 0.4 K/ul 07/14/2018 Cbc With Differential Ord2 Eos ABS# 0.2 K/ul 07/14/2018 Cbc With Differential Ord2 Baso ABS# 0.0 K/ul 07/14/2018 Renal Hbv672 NA 140 mEq/L 07/14/2018 Renal Nqi405 K 4.2 mEq/L 07/14/2018 Renal Cyg534 CL 103 mEq/L 07/14/2018 Renal Pmc226 CO2 29.0 mEq/L 07/14/2018 Renal Fzl864 ANION GAP 12 07/14/2018 Renal Sbn484 Osmo 280 mOsmo 07/14/2018 Renal Hmj662 GLUCOSE 95 mg/dL 07/14/2018 Renal Dba689 BUN 15 mg/dL 07/14/2018 Renal Zic353 Creat 1.2 mg/dL 07/14/2018 Renal Nrf281 eGFR 64 ml/min/1.73m2 07/14/2018 Renal Ofa846 B/C Ratio 12.8 Ratio 07/14/2018 Renal Rtw032 CALCIUM 9.6 mg/dL 07/14/2018 Renal Eep076 PHOS 3.2 mg/dL 07/14/2018 Renal Pnd910 ALBUMIN 4.4 g/dL 07/14/2018 Magnesium Ord90 Mag [...] 29.7 pg 06/08/2018 Cbc With Differential Ord2 [place]% 8.7 % 06/08/2018 Cbc With Differential Ord2 [...] 2.14 K/ul 06/08/2018 Cbc With Differential Ord2 [place] ABS# 0.5 K/ul 06/08/2018 Cbc With Differential Ord2 Eos ABS# 0.2 K/ul 06/08/2018 Cbc With Differential Ord2 Baso ABS# 0.0 K/ul 06/08/2018 Comp Metabolic Ncg276 NA 139 mEq/L 06/08/2018 Comp Metabolic Igz170 K 4.6 mEq/L 06/08/2018 Comp Metabolic Iav443 CL 105 mEq/L 06/08/2018 Comp Metabolic Nxp321 CO2 26.0 mEq/L 06/08/2018 Comp Metabolic Dic512 ANION GAP 13 06/08/2018 Comp Metabolic Chl740 GLUCOSE 95 mg/dL 06/08/2018 Comp Metabolic Uai505 Creat 1.2 mg/dL 06/08/2018 Comp Metabolic Kpq580 eGFR 59 ml/min/1.73m2 06/08/2018 Comp Metabolic Lfk321 BUN 12 mg/dL 06/08/2018 Comp Metabolic Pwi493 B/C Ratio 9.7 Ratio 06/08/2018 Comp Metabolic Apg894 CALCIUM 9.9 mg/dL 06/08/2018 Comp Metabolic Ozg176 ALK PHOS 70 U/L 06/08/2018 Comp Metabolic Imj054 AST(SGOT) 21 U/L 06/08/2018 Comp Metabolic Phb918 ALT(SGPT) 20 U/L 06/08/2018 Comp Metabolic Shl530 BILI T 1.0 mg/dL 06/08/2018 Comp Metabolic Kzl609 ALBUMIN 4.5 g/dL 06/08/2018 Comp Metabolic Rtl076 TPRO 7.2 g/dL 06/08/2018 Comp Metabolic Wth409 GLOB 2.8 g/dL 06/08/2018 Comp Metabolic Sqm000 A/G Ratio 1.6 Ratio 06/08/2018 Comp Metabolic Xoy745 Osmo 277 mOsmo 06/08/2018 Cbc With Differential [...] 30.6 pg 05/10/2018 Cbc With Differential Ord2 [place]% 6.5 % 05/10/2018 Cbc With Differential Ord2 [...] 1.94 K/ul 05/10/2018 Cbc With Differential Ord2 [place] ABS# 0.4 K/ul 05/10/2018 Cbc With Differential [...] Ord30 C/HDL 4.2 Ratio 01/26/2018 Comp Metabolic Luf908 NA 138 mEq/L 01/26/2018 Comp Metabolic Gpy409 K 4.2 mEq/L 01/26/2018 Comp Metabolic Jkm361 CL 105 mEq/L 01/26/2018 Comp Metabolic Hpv247 CO2 23.0 mEq/L 01/26/2018 Comp Metabolic Fay127 ANION GAP 14 01/26/2018 Comp Metabolic Yei647 GLUCOSE 89 mg/dL 01/26/2018 Comp Metabolic Buw072 Creat 1.1 mg/dL 01/26/2018 Comp Metabolic Eoh582 eGFR 70 ml/min/1.73m2 01/26/2018 Comp Metabolic Raj741 BUN 18 mg/dL 01/26/2018 Comp Metabolic Qun454 B/C Ratio 16.8 Ratio 01/26/2018 Comp Metabolic Poe795 CALCIUM 9.2 mg/dL 01/26/2018 Comp Metabolic Qcc737 ALK PHOS 67 U/L 01/26/2018 Comp Metabolic Dqp731 AST(SGOT) 31 U/L 01/26/2018 Comp Metabolic Pex830 ALT(SGPT) 23 U/L 01/26/2018 Comp Metabolic Zdt595 BILI T 1.7 mg/dL 01/26/2018 Comp Metabolic Jxk236 ALBUMIN 3.9 g/dL 01/26/2018 Comp Metabolic Rgs873 TPRO 6.7 g/dL 01/26/2018 Comp Metabolic Obk752 GLOB 2.8 g/dL 01/26/2018 Comp Metabolic Nrl799 A/G Ratio 1.4 Ratio 01/26/2018 Comp Metabolic Fiw900 Osmo 277 mOsmo 01/26/2018 Cbc With Differential [...] 30.7 pg 01/26/2018 Cbc With Differential Ord2 [place]% 7.1 % 01/26/2018 Cbc With Differential Ord2 [...] 2.40 K/ul 01/26/2018 Cbc With Differential Ord2 [place] ABS# 0.5 K/ul 01/26/2018 Cbc With Differential Ord2 Eos ABS# 0.2 K/ul 01/26/2018 Cbc With Differential Ord2 Baso ABS# 0.0 K/ul 01/26/2018 Tsh Ord6 TSH (3rd IS) 1.81 uIU/mL 01/26/2018 Testosterone Sfl559 Testo 370.3 ng/dL 01/26/2018 C A/B FLU [id number] Influenza A Scr Negative 12/08/2017 C A/B FLU [id number] Influenza B Scr Negative 12/08/2017 C A/B FLU [id number] Influenza Intrp B AG:PRID:PT:NOSE:NOM:IF See Footnote 12/08/2017 [...] 30.8 pg 04/11/2017 Cbc With Differential Ord2 [place]% 8.1 % 04/11/2017 Cbc With Differential Ord2 [...] 1.91 K/ul 04/11/2017 Cbc With Differential Ord2 [place] ABS# 0.5 K/ul 04/11/2017 Cbc With Differential Ord2 Eos ABS# 0.2 K/ul 04/11/2017 Cbc With Differential Ord2 Baso ABS# 0.0 K/ul 04/11/2017 Comp Metabolic Psw460 NA 140 mEq/L 04/11/2017 Comp Metabolic Uet260 K 4.1 mEq/L 04/11/2017 Comp Metabolic Sak338 CL 105 mEq/L 04/11/2017 Comp Metabolic Jkc907 CO2 26.0 mEq/L 04/11/2017 Comp Metabolic Lqs816 ANION GAP 13 04/11/2017 Comp Metabolic Hqn441 GLUCOSE 88 mg/dL 04/11/2017 Comp Metabolic Egz696 Creat 1.1 mg/dL 04/11/2017 Comp Metabolic Kkc140 eGFR 66 ml/min/1.73m2 04/11/2017 Comp Metabolic Wpi848 BUN 18 mg/dL 04/11/2017 Comp Metabolic Hby105 B/C Ratio 15.9 Ratio 04/11/2017 Comp Metabolic Uro586 CALCIUM 9.0 mg/dL 04/11/2017 Comp Metabolic Zhw089 ALK PHOS 72 U/L 04/11/2017 Comp Metabolic Naa829 AST(SGOT) 22 U/L 04/11/2017 Comp Metabolic Vzc068 ALT(SGPT) 26 U/L 04/11/2017 Comp Metabolic Llf521 BILI T 1.0 mg/dL 04/11/2017 Comp Metabolic Wfu657 ALBUMIN 4.0 g/dL 04/11/2017 Comp Metabolic Jrx216 TPRO 6.4 g/dL 04/11/2017 Comp Metabolic Loc366 GLOB 2.4 g/dL 04/11/2017 Comp Metabolic Zev186 A/G Ratio 1.6 Ratio 04/11/2017 Comp Metabolic Bhf934 Osmo 281 mOsmo 04/11/2017 Vitamin D 25 Oh Nld1910 VITAMIN D, 25 HYDROXY 65.52 ng/mL 05/19/2016 [...] 28.5 pg 05/18/2016 Cbc With Differential Ord2 [place]% 7.2 % 05/18/2016 Cbc With Differential Ord2 [...] 1.80 K/ul 05/18/2016 Cbc With Differential Ord2 [place] ABS# 0.4 K/ul 05/18/2016 Cbc With Differential Ord2 Eos ABS# 0.2 K/ul 05/18/2016 Cbc With Differential Ord2 Baso ABS# 0.0 K/ul 05/18/2016 Magnesium Ord90 Mag 2.0 mg/dL 05/18/2016 Renal Csw846 NA 139 mEq/L 05/18/2016 Renal Wzo153 K 4.0 mEq/L 05/18/2016 Renal Rhg557 CL 104 mEq/L 05/18/2016 Renal Cmy174 CO2 27.0 mEq/L 05/18/2016 Renal Dfj220 ANION GAP 12 05/18/2016 Renal Jzj532 Osmo 279 mOsmo 05/18/2016 Renal Cdm574 GLUCOSE 91 mg/dL 05/18/2016 Renal Bwc168 BUN 18 mg/dL 05/18/2016 Renal Rlf447 Creat 1.3 mg/dL 05/18/2016 Renal Zoz753 eGFR 59 ml/min/1.73m2 05/18/2016 Renal Pit045 B/C Ratio 14.3 Ratio 05/18/2016 Renal Cjh746 CALCIUM 9.3 mg/dL 05/18/2016 Renal Ycg647 PHOS 3.2 mg/dL 05/18/2016 Renal Nfy727 ALBUMIN 4.2 g/dL 05/18/2016 Random Urine Protein/Creatinine Ratio Ayd9618 U Prot 15.0 mg/dl 05/18/2016 Random Urine Protein/Creatinine Ratio Bke5125 U CREAT 141.0 mg/dL 05/18/2016 Random Urine Protein/Creatinine Ratio Uez5202 R MTP/Creat Ratio 0.11 05/18/2016 Urinalysis Ord28 [...] 28.5 pg 02/19/2016 Cbc With Differential Ord2 [place]% 9.5 % 02/19/2016 Cbc With Differential Ord2 [...] 1.91 K/ul 02/19/2016 Cbc With Differential Ord2 [place] ABS# 0.5 K/ul 02/19/2016 Cbc With Differential Ord2 Eos ABS# 0.2 K/ul 02/19/2016 Cbc With Differential Ord2 Baso ABS# 0.0 K/ul 02/19/2016 Cbc With Differential Ord2 New Analyzer Notice Please note new ref ranges starting 10-29-2015 due to implemntation of new five part differential hematolgy analyzer. 02/19/2016 Tsh Ord6 hTSH II 2.10 uIU/mL 02/19/2016 Comp Metabolic Blt072 NA 138 mEq/L 02/19/2016 Comp Metabolic Uit357 K 3.8 mEq/L 02/19/2016 Comp Metabolic Qzm714 CL 103 mEq/L 02/19/2016 Comp Metabolic Kch679 CO2 28.0 mEq/L 02/19/2016 Comp Metabolic Bvx064 ANION GAP 11 02/19/2016 Comp Metabolic Xgu763 GLUCOSE 94 mg/dL 02/19/2016 Comp Metabolic Ufz757 Creat 1.0 mg/dL 02/19/2016 Comp Metabolic Ecd411 eGFR 75 ml/min/1.73m2 02/19/2016 Comp Metabolic Khw862 BUN 18 mg/dL 02/19/2016 Comp Metabolic Gqo946 B/C Ratio 17.6 Ratio 02/19/2016 Comp Metabolic Uiw157 CALCIUM 9.6 mg/dL 02/19/2016 Comp Metabolic Ihx331 ALK PHOS 93 U/L 02/19/2016 Comp Metabolic Tln610 AST(SGOT) 23 U/L 02/19/2016 Comp Metabolic Fqh567 ALT(SGPT) 19 U/L 02/19/2016 Comp Metabolic Epq634 BILI T 0.8 mg/dL 02/19/2016 Comp Metabolic Jel268 ALBUMIN 4.1 g/dL 02/19/2016 Comp Metabolic Ndw633 TPRO 6.8 g/dL 02/19/2016 Comp Metabolic Rnn357 GLOB 2.7 g/dL 02/19/2016 Comp Metabolic Ahm846 A/G Ratio 1.5 Ratio 02/19/2016 Comp Metabolic Bjc750 Osmo 277 mOsmo 02/19/2016 Uric Acid Ord77 Uric A 6.0 mg/dL 02/19/2016 Total Psa Ord10 PSA 0.82 ng/mL 02/19/2016 Comp Metabolic Bfo246 NA 140 mEq/L 12/16/2015 Comp Metabolic Ccl295 K 4.0 mEq/L 12/16/2015 Comp Metabolic Oxa124 CL 105 mEq/L 12/16/2015 Comp Metabolic Cbs724 CO2 24.0 mEq/L 12/16/2015 Comp Metabolic Muj449 ANION GAP 15 12/16/2015 Comp Metabolic Mxc082 GLUCOSE 85 mg/dL 12/16/2015 Comp Metabolic Lrq736 Creat 1.2 mg/dL 12/16/2015 Comp Metabolic Clm998 eGFR 65 ml/min/1.73m2 12/16/2015 Comp Metabolic Miz034 BUN 14 mg/dL 12/16/2015 Comp Metabolic Kyt437 B/C Ratio 12.1 Ratio 12/16/2015 Comp Metabolic Wpi354 CALCIUM 9.1 mg/dL 12/16/2015 Comp Metabolic Svp214 ALK PHOS 162 U/L 12/16/2015 Comp Metabolic Mbt705 AST(SGOT) 14 U/L 12/16/2015 Comp Metabolic Aty110 ALT(SGPT) 17 U/L 12/16/2015 Comp Metabolic Erk809 BILI T 1.0 mg/dL 12/16/2015 Comp Metabolic Jgg674 ALBUMIN 3.4 g/dL 12/16/2015 Comp Metabolic Tnc982 TPRO 6.2 g/dL 12/16/2015 Comp Metabolic Mnb201 GLOB 2.9 g/dL 12/16/2015 Comp Metabolic Dhm961 A/G Ratio 1.2 Ratio 12/16/2015 Comp Metabolic Ntf336 Osmo 279 mOsmo 12/16/2015 Uric Acid Ord77 [...] 29.9 % 12/16/2015 Cbc With Differential Ord2 Metcalfe% 7.5 % 12/16/2015 Cbc With Differential Ord2 [...] 1.52 K/ul 12/16/2015 Cbc With Differential Ord2 Metcalfe ABS# 0.4 K/ul 12/16/2015 Cbc With Differential [...] C/HDL 4.0 Ratio 07/21/2015 Urine Protein 24Hr Gdk365 U Prot 5.1 mg/dl 05/16/2015 Urine Protein 24Hr Yua346 U Prot24 71.5 mg/24hr 05/16/2015 Total Volume Urine Pol898 TV/24hr 1400 ml 05/16/2015 Total Psa Ord10 PSA 0.70 ng/mL 05/15/2015 Renal Mvr542 NA 135 mEq/L 05/15/2015 Renal Uti177 K 3.9 mEq/L 05/15/2015 Renal Ryw304 CL 101 mEq/L 05/15/2015 Renal Mfc277 CO2 27.0 mEq/L 05/15/2015 Renal Ilc826 ANION GAP 11 05/15/2015 Renal Cni745 Osmo 274 mOsmo 05/15/2015 Renal Wmi724 GLUCOSE 132 mg/dL 05/15/2015 Renal Aol909 BUN 19 mg/dL 05/15/2015 Renal Xos958 Creat 1.1 mg/dL 05/15/2015 Renal Xbz071 eGFR 67 ml/min/1.73m2 05/15/2015 Renal Sst361 B/C Ratio 17.0 Ratio 05/15/2015 Renal Gwf895 CALCIUM 9.6 mg/dL 05/15/2015 Renal Eoj135 PHOS 3.0 mg/dL 05/15/2015 Renal Dhn150 ALBUMIN 4.3 g/dL 05/15/2015 Cbc With Differential [...] Result Effective Dates Constitutional No recent illness 12/25/2018 Constitutional No [...] masses 12/25/2018 None Full Exam - General 1995 Respiratory auscultation Overall: breath sounds clear bilaterally 12/25/2018 None Full Exam - General 1995 Respiratory respiratory effort/rhythm Overall: no retractions 12/25/2018 None Full Exam - General 1994 Respiratory respiratory effort/rhythm Overall: normal rate 12/25/2018 None Full Exam - General 1995 Cardiovascular extremities Overall: no clubbing 12/25/2018 None Full Exam - General 1995 [...] hygiene 11/27/2018 None Full Exam - General 1995 Eyes conjunctiva/eyelids Overall: conjunctiva clear 11/27/2018 None Full Exam - General 1995 Eyes conjunctiva/eyelids Overall: cornea clear 11/27/2018 None Full Exam - General 1995 Eyes conjunctiva/eyelids Overall: eyelids normal 11/27/2018 None [...] Formatting Model/CDA Sections, Assigned to/Sharee Ramirez CPT-4: [id number] 07/05/2018 THER/PROPH/DIAG INJ SC/IM CPT-4: 39259 06/12/2018 TRIAMCINOLONE ACET INJ NOS CPT-4: J3301 06/12/2018 PPPS, SUBSEQ VISIT CPT- 4: G0439 08/03/2017 ADMIN INFLUENZA VIRUS VAC CPT-4: G0008 06/28/2016 FLU VACC PRSV FREE INC ANTIG CPT-4: 82894 06/28/2016 TENIVAC TD VACCINE NO PRSRV 7/> IM CPT-4: 71548 06/28/2016 OCCULT BLOOD FECES CPT- 4: 08280 02/19/2015 Vital Signs Date Vital 12/25/2018 Blood Pressure 1: 112/62 Code: 8480-6 BMI: 28.6 Code: 44412-0 Heart Rate 1: 76 bpm Height: 6' SpO2: 96% Weight: 211 lbs 12/13/2018 Blood Pressure 1: 114/78 Code: 8480-6 BMI: 29.4 Code: 26082-3 Heart Rate 1: 73 bpm Height: 6' SpO2: 93% Weight: 217 lbs 11/27/2018 Blood Pressure 1: 110/70 Code: 8480-6 BMI: 28.5 Code: 58986-6 Heart Rate 1: 90 bpm Height: 6' SpO2: 95% Temperature: 36.8 (C) / 98.2 (F) Weight: 210 lbs 8 oz 09/26/2018 Blood Pressure 1: 130/80 Code: 8480-6 BMI: 29.6 Code: 99278-9 Heart Rate 1: 98 bpm Height: 6' SpO2: 93% Weight: 218 lbs 08/10/2018 BMI: 29.4 Code: 07031-0 Height: 6' Weight: 217 lbs 07/26/2018 Blood Pressure 1: 116/72 Code: 8480-6 BMI: 29.4 Code: 88282-6 Heart Rate 1: 102 bpm Height: 6' SpO2: 96% Weight: 217 lbs 07/05/2018 Blood Pressure 1: 132/72 Code: 8480-6 Heart Rate 1: 60 bpm SpO2: 95% 06/12/2018 Blood Pressure 1: 120/78 Code: 8480-6 BMI: 29.6 Code: 41285-8 Heart Rate 1: 103 bpm Height: 6' SpO2: 96% Weight: 218 lbs 05/10/2018 Blood Pressure 1: 114/68 Code: 8480-6 BMI: 29.4 Code: 95016-9 Heart Rate 1: 92 bpm Height: 6' SpO2: 97% Weight: 217 lbs 03/27/2018 Blood Pressure 1: 126/74 Code: 8480-6 BMI: 30.1 Code: 72319-0 Heart Rate 1: 103 bpm Height: 6' SpO2: 96% Weight: 222 lbs 01/25/2018 Blood Pressure 1: 122/70 Code: 8480-6 Blood Pressure 2: 126/73 Code: 8480-6 Heart Rate 1: 63 bpm SpO2: 94% 01/24/2018 Blood Pressure 1: 110/72 Code: 8480-6 BMI: 29.7 Code: 20187-1 Heart Rate 1: 88 bpm Height: 6' SpO2: 95% Weight: 219 lbs 12/08/2017 Blood Pressure 1: 120/68 Code: 8480-6 BMI: 30.0 Code: 76802-0 Heart Rate 1: 91 bpm Height: 6' SpO2: 96% Temperature: 36.7 (C) / 98.1 (F) Weight: 221 lbs 10/27/2017 Blood Pressure 1: 124/76 Code: 8480-6 BMI: 30.1 Code: 66577-7 Heart Rate 1: 69 bpm Height: 6' SpO2: 95% Weight: 222 lbs 09/29/2017 Blood Pressure 1: 118/66 Code: 8480-6 BMI: 29.9 Code: 32149-7 Heart Rate 1: 81 bpm Height: 6' SpO2: 95% Weight: 220 lbs 8 oz 09/01/2017 Blood Pressure 1: 122/82 Code: 8480-6 BMI: 29.6 Code: 89471-4 Heart Rate 1: 75 bpm Height: 6' SpO2: 97% Weight: 218 lbs 08/03/2017 Blood Pressure 1: 120/68 Code: 8480-6 Heart Rate 1: 68 bpm Height: 6' SpO2: 94% Waist Measure (cm): 97 cm 04/26/2017 Blood Pressure 1: 122/72 Code: 8480-6 BMI: 29.4 Code: 58210-2 Heart Rate 1: 85 bpm Height: 6' SpO2: 92% Weight: 217 lbs 01/25/2017 Blood Pressure 1: 118/78 Code: 8480-6 BMI: 29.4 Code: 51442-3 Heart Rate 1: 72 bpm Height: 6' SpO2: 94% Temperature: 36.9 (C) / 98.5 (F) Weight: 217 lbs 10/26/2016 Blood Pressure 1: 152/86 Code: 8480-6 BMI: 29.7 Code: 51213-6 Heart Rate 1: 58 bpm Height: 6' Weight: 219 lbs 09/27/2016 Blood Pressure 1: 138/80 Code: 8480-6 BMI: 29.4 Code: 71672-5 Heart Rate 1: 52 bpm Height: 6' SpO2: 98% Weight: 217 lbs 06/28/2016 Blood Pressure 1: 128/86 Code: 8480-6 BMI: 29.6 Code: 87318-2 Heart Rate 1: 69 bpm Height: 6' SpO2: 93% Weight: 218 lbs 04/27/2016 Blood Pressure 1: 118/82 Code: 8480-6 BMI: 29.3 Code: 79303-3 Heart Rate 1: 85 bpm Height: 6' SpO2: 98% Weight: 216 lbs 02/17/2016 Blood Pressure 1: 132/80 Code: 8480-6 BMI: 28.8 Code: 19763-5 Heart Rate 1: 94 bpm Height: 6' SpO2: 98% Weight: 212 lbs 01/20/2016 Blood Pressure 1: 120/70 Code: 8480-6 BMI: 29.7 Code: 93160-9 Heart Rate 1: 87 bpm Height: 6' SpO2: 92% Weight: 219 lbs 01/06/2016 Blood Pressure 1: 122/88 Code: 8480-6 BMI: 28.8 Code: 72293-2 Heart Rate 1: 83 bpm Height: 6' SpO2: 97% Weight: 212 lbs 12/16/2015 Blood Pressure 1: 98/62 Code: 8480-6 Heart Rate 1: 62 bpm Height: 6' SpO2: 90% Weight: 11/27/2015 Blood Pressure 1: 90/64 Code: 8480-6 Blood Pressure 1: 110/80 Code: 8480-6 Heart Rate 1: 91 bpm Height: 6' SpO2: 92% Weight: 07/30/2015 Blood Pressure 1: 112/82 Code: 8480-6 BMI: 30.5 Code: 93968-9 Heart Rate 1: 82 bpm Height: 6' SpO2: 92% Weight: 225 lbs 06/09/2015 Blood Pressure 1: 130/76 Code: 8480-6 BMI: 31.1 Code: 93596-6 Heart Rate 1: 65 bpm Height: 6' SpO2: 96% Weight: 229 lbs 04/29/2015 Blood Pressure 1: 118/78 Code: 8480-6 BMI: 30.7 Code: 03487-1 Heart Rate 1: 70 bpm Height: 6' Weight: 226 lbs 02/19/2015 Blood Pressure 1: 118/70 Code: 8480-6 BMI: 29.7 Code: 28293-3 Heart Rate 1: 68 bpm Height: 6' Weight: 219 lbs Functional Status No Functional Status data History of Present Illness Symptom Name Status Result Effective Date Notes Onset and Resolution ongoing 12/25/2018 None Onset [...] data Encounters Encounter Performer Location Codes Date 58812 EST. PATIENT, LEVEL IV Diagnosis: Other fatigue[ICD10: R53.83] Diagnosis: Obstructive sleep apnea (adult) (pediatric)[ICD10: G47.33] Diagnosis: Other malaise[ICD10: R53.81] [facility] CPT-4: 87450 12/25/2018 [id number]) 20267 EST. PATIENT, LEVEL IV Diagnosis: Shortness of breath[ICD10: R06.02] Diagnosis: Other fatigue[ICD10: R53.83] Diagnosis: Obstructive sleep apnea (adult) (pediatric)[ICD10: G47.33] Diagnosis: Other malaise[ICD10: R53.81] Lesley Butcher MD, [facility] CPT-4: 60751 12/13/2018 ([id number]) 67327 EST. PATIENT, LEVEL IV Diagnosis: Shortness of breath[ICD10: R06.02] Diagnosis: Dizziness and giddiness[ICD10: R42] Diagnosis: Other fatigue[ICD10: R53.83] Diagnosis: Essential (primary) hypertension[ICD10: I10] Diagnosis: Muscle weakness (generalized)[ICD10: M62.81] Merline Butcher MD, [facility] CPT-4: 56166 11/27/2018 ([id number]) 57660 EST. PATIENT, LEVEL IV Diagnosis: Essential (primary) hypertension[ICD10: I10] Diagnosis: Vertigo of central origin, right ear[ICD10: H81.41] Diagnosis: Low back pain[ICD10: M54.5] Lesley Butcher MD, [facility] CPT-4: 72487 09/26/2018 ([id number]) 64153 EST. PATIENT, LEVEL III Diagnosis: Dizziness and giddiness[ICD10: R42] Diagnosis: Vertigo of central origin, right ear[ICD10: H81.41] Diagnosis: Essential (primary) hypertension[ICD10: I10] Lesley Butcher MD [facility] CPT-4: 28510 07/26/2018 ([id number]) 02210 EST. PATIENT, LEVEL III Diagnosis: Essential (primary) hypertension[ICD10: I10] Lesley Butcher MD, [facility] CPT-4: 38982 06/12/2018 ([id number]) 35686 EST. PATIENT, LEVEL IV Diagnosis: Other iron deficiency anemias[ICD10: D50.8] Diagnosis: Weakness[ICD10: R53.1] Diagnosis: Diverticulosis of large intestine without perforation or abscess with bleeding[ICD10: K57.31] Lesley Butcher MD, [facility] CPT-4: 28201 05/10/2018 ([id number]) 75074 EST. PATIENT, LEVEL IV Diagnosis: Essential (primary) hypertension[ICD10: I10] Diagnosis: Major depressive disorder, recurrent, mild[ICD10: F33.0] Diagnosis: Sensorineural hearing loss, bilateral[ICD10: H90.3] Lesley Butcher MD, [facility] CPT-4: 20373 03/27/2018 ([id number]) Miscellaneous no charge Diagnosis: Essential (primary) hypertension[ICD10: I10] Mady Butcher MD, [facility] CPT-4: 49970 01/25/2018 ([id number]) 51733 EST. PATIENT, LEVEL IV Diagnosis: Essential (primary) hypertension[ICD10: I10] Diagnosis: Sensorineural hearing loss, bilateral[ICD10: H90.3] Diagnosis: Mixed hyperlipidemia[ICD10: E78.2] Diagnosis: Major depressive disorder, recurrent, mild[ICD10: F33.0] Lesley Butcher MD, [facility] CPT-4: 82468 01/24/2018 47776 EST. PATIENT, LEVEL IV Diagnosis: Other malaise[ICD10: R53.81] Diagnosis: Fever, unspecified[ICD10: R50.9] Mady Butcher MD, [facility] CPT-4: 58740 12/08/2017 ([id number]) 19994 EST. PATIENT, LEVEL III Diagnosis: Essential (primary) hypertension[ICD10: I10] Lesley Butcher MD, [facility] CPT-4: 61377 10/27/2017 ([id number]) 85721 EST. PATIENT, LEVEL III Diagnosis: Benign prostatic hyperplasia with lower urinary tract symptoms[ICD10: N40.1] Diagnosis: Dysphagia, pharyngeal phase[ICD10: R13.13] Lesley Butcher MD, [facility] CPT-4: 98697 09/29/2017 ([id number]) 15416 EST. PATIENT, LEVEL IV Diagnosis: Essential (primary) hypertension[ICD10: I10] Diagnosis: Major depressive disorder, recurrent, mild[ICD10: F33.0] Diagnosis: Sensorineural hearing loss, bilateral[ICD10: H90.3] Lesley Butcher MD, [facility] CPT-4: 75319 09/01/2017 ([id number]) 16898 EST. PATIENT, LEVEL IV Diagnosis: Essential (primary) hypertension[ICD10: I10] Diagnosis: Major depressive disorder, recurrent, mild[ICD10: F33.0] Diagnosis: Mixed hyperlipidemia[ICD10: E78.2] Lesley Butcher MD, [facility] CPT- 4: 34022 04/26/2017 ([id number]) 65082 EST. PATIENT, LEVEL IV Diagnosis: Essential (primary) hypertension[ICD10: I10] Diagnosis: Major depressive disorder, recurrent, mild[ICD10: F33.0] Diagnosis: Urge incontinence[ICD10: N39.41] Lesley Butcher MD, [facility] CPT-4: 36506 01/25/2017 ([id number]) 39856 EST. PATIENT, LEVEL IV Diagnosis: Essential (primary) hypertension[ICD10: I10] Diagnosis: Major depressive disorder, recurrent, mild[ICD10: F33.0] Diagnosis: Urge incontinence[ICD10: N39.41] Lesley Butcher MD [facility] CPT-4: 51954 10/26/2016 ([id number]) 85071 EST. PATIENT, LEVEL III Diagnosis: Essential (primary) hypertension[ICD10: I10] Diagnosis: Major depressive disorder, recurrent, mild[ICD10: F33.0] Diagnosis: Urge incontinence[ICD10: N39.41] Lesley Butcher MD, [facility] CPT-4: 10042 09/27/2016 ([id number]) 67778 EST. PATIENT, LEVEL IV Diagnosis: Essential (primary) hypertension[ICD10: I10] Diagnosis: Encounter for immunization[ICD10: Z23] Diagnosis: Laceration without foreign body of left forearm, initial encounter[ICD10: S51.812A] Diagnosis: Laceration without foreign body of right forearm, initial encounter[ICD10: S51.811A] Diagnosis: Major depressive disorder, recurrent, mild[ICD10: F33.0] Lesley Butcher MD, [facility] CPT-4: 32612 06/28/2016 ([id number]) 74185 EST. 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 PATIENT, LEVEL IV Diagnosis: Weakness[ICD10: R53.1] Diagnosis: Gout, unspecified[ICD10: M10.9] Diagnosis: Hypotension, unspecified[ICD10: I95.9] Lesley Butcher MD, [facility] CPT-4: 39347 12/16/2015 ([id number]) Patient admitted to the hospital from clinic (NO CHARGE) Diagnosis: Hypoxemia[ICD10: R09.02] Diagnosis: Weakness[ICD10: R53.1] Diagnosis: Dyspnea, unspecified[ICD10: R06.00] Mady Butcher MD, [facility] CPT- 4: 51301L 11/27/2015 ([id number]) 36982 EST. PATIENT, LEVEL III Diagnosis: Essential (primary) hypertension[ICD10: I10] Diagnosis: Gastro-esophageal reflux disease without esophagitis[ICD10: K21.9] Lesley Butcher MD, [facility] CPT-4: 65694 07/30/2015 ([id number]) 43915 EST. PATIENT, LEVEL III Diagnosis: ESSENTIAL HYPERTENSION[ICD9: 401.9] Merline Rose [facility] CPT-4: 08898 06/09/2015 ([id number]) 99561 EST. PATIENT, LEVEL III Diagnosis: ESSENTIAL HYPERTENSION[ICD9: 401.9] Lesley Butcher MD, [facility] CPT- 4: 48088 04/29/2015 ([id number]) OFFICE/OUTPATIENT VISIT NEW Diagnosis: ESSENTIAL HYPERTENSION[ICD9: 401.9] Diagnosis: DEPRESSIVE DISORDER NEC[ICD9: 311] Diagnosis: Enlarged prostate[ICD9: 600.00] Diagnosis: Nasal inflammation due to allergen[ICD9: 477.9] Lesley Butcher MD, [facility] CPT-4: 70127 02/19/2015 Plan of Care Planned Activity Notes Codes Status Date Visit Plan: Fatigue, shortness of breath, dizziness - pt is to continue PT, pt is to follow up with Dr. Panda and Dr. Harvey and is to notify clinic with any changes in the current treatment plan. 12/25/2018 Patient Education: Patient Medication Summary Completed 12/25/2018 Visit Plan: Shortness of breath - Hx of sleep apnea - will need to get pt an overnight oxygen study [facility] [...] at 96% 12/13/2018 Appointment: Lesley Butcher WPtel: [address] [place], [place] [address] (15 min) Moderate 12/13/2018 Patient Education: Patient Medication Summary Completed 12/13/2018 Visit Plan: DTB-esxfptd-bbohbmxze of breath -patient reports worsening of chronic symptoms -will check EKG and cardiac enzymes to evaluate for acute changes -recommend patient follow up with his rewinder operator, Dr Sharyn vu -patient, and daughter verbalized understanding of plan. Generalized weakness-discussed PT referral after cleared by cardiology -patient's will call us when she wants to have it set up HTN-no change but monitor at home 11/27/2018 Appointment: Merline Rose WPtel: [phone] [phone] [place] (15 min) Moderate 11/27/2018 Patient [...] sessions. 09/26/2018 Appointment: Lesley Butcher WPtel: [phone] [facility] [place] (15 min) Moderate 09/26/2018 Patient Education: [...] surrogate. 08/10/2018 Appointment: Mady Dunne WPtel: [phone] [facility] [facility] - Annual Wellness Visit 08/10/2018 Patient [...] at home. 07/26/2018 Appointment: Lesley Butcher WPtel: [facility] (15 min) Moderate 07/26/2018 Patient Education: Patient [...] his dexamethasone. 06/12/2018 Appointment: Lesley Butcher WPtel: [address] [place], [place] [phone] (15 min) Moderate 06/12/2018 Patient Education: Patient Medication Summary Completed 06/12/2018 Visit Plan: Diverticulosis with recent GI bleeding - improved - continue with supportive care, avoid foods which cause any abdominal pain - monitor symptoms - call if any pain or bleeding recurs. Anemia - check labs today. Weakness - continue with increasing of activity. 05/10/2018 Appointment: Lesley Butcher WPtel: [address] [place], [place] [address] (30 min) Complex 05/10/2018 Patient Education: Patient [...] implant. 03/27/2018 [phone] ([facility] min) Moderate 03/27/2018 Patient Education: [...] to medications. 01/24/2018 Appointment: Lesley Butcher WPtel: [facility] (15 min) Moderate 01/24/2018 Patient Education: Patient Medication Summary Completed 01/24/2018 Visit Plan: Influenza - pt started on tamiflu - pt to start on anti-inflammatories, tylenol and monitor symptoms. Pt to call if not improving. Pt to alert any close contacts as to illness. 12/08/2017 [facility]ment[phone] ([facility] min) Complex 12/08/2017 Patient Education: [...] home. 10/27/2017 Appointment: [facility]el[phone] [facility] (15 min) Moderate 10/27/2017 Patient Education: Patient Medication Summary Completed 10/27/2017 Referral: External, Ordering Provider Referral Initiated 10/12/2017 Visit Plan: BPH - continue with dutasteride and flomax Dysphagia - referral to Dr. Kumar for EGD - question stricture - dysphagia intermittently - hx of stricture. 09/29/2017 Appointment: Lesley Butcehr WPtel: [facility] (15 min) Moderate 09/29/2017 Patient Education: Patient Medication Summary Completed 09/29/2017 Care Plan: Referral Order SNOMED-CT : [id number] Pending 09/29/2017 Visit Plan: Hypertension - well [...] recommended patient to have an evaluation at [facility] to see if he has potential for cochlear implant. 09/01/2017 Appointment: [facility]el[phone] [facility] [place] (15 min) Moderate 09/01/2017 Patient Education: Patient Medication Summary Completed 09/01/2017 Care Plan: Referral Order SNOMED-CT : [id number] Pending 09/01/2017 Visit Plan: Medicare Exam - [...] surrogate. 08/03/2017 Appointment: [facility]el[phone] [facility] [facility] - Welcome to Medicare visit 08/03/2017 [...] No change in current medications. 04/26/2017 Appointment: eLsley Butcher [facility]Ptel[phone] [facility] (15 min) Moderate 04/26/2017 Patient Education: [...] 10mg daily. 01/25/2017 Appointment: Lesley Butcher WPtel: [facility]5 [facility] (30 min) Complex 01/25/2017 Patient Education: Patient [...] detrol [place] 10/26/2016 Appointment: Lesley Butcher WPtel: [facility] (15 min) Moderate 10/26/2016 Patient Education: Patient [...] retention occur. 09/27/2016 Appointment: Lesley Butcher WPtel: [facility] (15 min) Moderate 09/27/2016 Patient Education: [...] andrea 06/28/2016 Appointment: [facility]Ptel[facility] [phone] [facility] [place] (15 min) Moderate 06/28/2016 Patient [...] 1 month 02/17/2016 Appointment: Merline Rose WPtel: [address] [place], [place] [phone] (30 min) Complex 02/17/2016 Patient Education: Patient [...] Completed 12/16/2015 Appointment: [facility]Ptel[facility] [phone] [facility] (15 min) Moderate 12/04/2015 Appointment: [facility]Ptel[facility] [phone] [facility] (15 min) Moderate 12/02/2015 Visit Plan: [...] PHARMACY 07/30/2015 Appointment: Lesley Butcher WPtel: [phone] [facility] (15 min) Moderate 07/30/2015 Patient Education: Patient [...] blood pressure readings at home. 04/29/2015 Appointment: GuadalupeKati brary WPtel: [phone] [facility] (15 min) Moderate 04/29/2015 Patient Education: Patient [...] External, Ordering Provider Referral Appointment Requested Referral: [facility] 09/12 Referral info faxed Appointment Requested Referral: [facility] Referral Appointment Requested Instructions Comment [...] planned injection in back and call the real estate marketing coordinator about a biopsy of the lesion on [...] ILLNESS. CHECK CARDIAC ENYZMES AND EKG . DSD-yjztnlx-mzofghnta of breath -patient reports worsening of chronic symptoms -will check EKG and cardiac enzymes to evaluate for acute changes -recommend patient follow up with his rewinder operator, Dr Stokes -patient, and daughter verbalized [...] recommended patient to have an evaluation at [facility] to see if he has potential [...] overnight oxygen study - [facility] for an [facility] [...]
--- OUTSIDE RECORDS SUMMARY | 2019-03-23 20:03 | XMS REPORT | CCD ---
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 Name Role Phone PP Unavailable CCM Unavailable Summary Purpose Interface Exchange Insurance Providers Payer name Policy type / Coverage type Covered democrat ID Effective Begin Date Effective End Date WPS Medicare Part B Medicare Part B [id number] 2018 Unknown [facility] Medicare Part B [id number] 2018 Unknown Family history Father Diagnosis Age At Onset Hypertension Unknown Coronary Artery Disease Unknown Sister Diagnosis Age At Onset Heart disease Unknown Mother Diagnosis Age At Onset Coronary Artery Disease Unknown Hypertension Unknown Social History Social History Element Codes Description Effective Dates Marital status Unknown 02/19/2015 Number of children Unknown 2 02/19/2015 Employment Unknown Retired 02/19/[address]: 793861308 Has never smoked or chewed tobacco 02/19/2015 Alcohol history Unknown occasionally drinks alcohol 02/19/2015 Allergies, Adverse Reactions, Alerts Substance Reaction Codes Entered Date Inactivated Date Status bactrim RxNorm: 887106 12/19/2015 No Inactive Date Active ciprofloxacin RxNorm: 82940 02/18/2015 No Inactive Date Active Past Medical [...] Instructions pantoprazole 40 mg tablet,delayed release RxNorm: 878952 TAKE ONE TABLET BY MOUTH ONCE DAILY AT BEDTIME 11/27/2018 No Stop Date Active atorvastatin 40 mg tablet RxNorm: 547829 1 Tablet(s) PO daily 09/26/2018 10/25/2018 Inactive dexamethasone 0.5 mg tablet RxNorm: 493712 TAKE 1 TABLET BY MOUTH ONCE DAILY 08/29/2018 No Stop Date Active clonazepam 1 mg tablet RxNorm: 056879 1/2 Tablet(s) PO QHS 08/24/2018 12/21/2018 Inactive allopurinol 100 mg tablet RxNorm: 958455 TAKE ONE TABLET BY MOUTH ONCE DAILY 08/03/2018 No Stop Date Active citalopram 40 mg tablet RxNorm: 497227 TAKE ONE TABLET BY MOUTH ONCE DAILY 06/13/2018 No Stop Date Active Kenalog 40 mg/mL suspension for injection RxNorm: 9514743 Milliliter(s) Inj 06/12/2018 06/12/2018 Inactive clonazepam 1 mg tablet RxNorm: 109021 1 Tablet(s) PO QHS 06/12/2018 08/23/2018 Inactive losartan 50 mg tablet RxNorm: 082349 1/2 Tablet(s) PO daily 05/24/2018 No Stop Date Active clonazepam 1 mg tablet RxNorm: 925325 1/2 Tablet(s) TAKE ONE TABLET BY MOUTH ONCE DAILY AT BEDTIME AND ONE TABLET THREE TIMES DAILY NEEDED 05/24/2018 06/11/2018 Inactive citalopram 40 mg tablet RxNorm: 429718 1/2 Tablet(s) TAKE ONE TABLET BY MOUTH ONCE DAILY 05/24/2018 09/25/2018 Inactive spironolactone 25 mg tablet RxNorm: 916945 TAKE ONE TABLET BY MOUTH ONCE DAILY 05/22/2018 No Stop Date Active dexamethasone 0.5 mg tablet RxNorm: 139456 TAKE ONE TABLET BY MOUTH ONCE DAILY 02/21/2018 08/28/2018 Inactive Flomax 0.4 mg capsule RxNorm: 567382 TAKE ONE CAPSULE BY MOUTH ONCE DAILY IN THE EVENING 12/19/2017 No Stop Date Active Tamiflu 75 mg capsule RxNorm: 838327 1 Capsule(s) PO BID 12/08/2017 12/12/2017 Inactive clonazepam 1 mg tablet RxNorm: 835824 Tablet(s) TAKE ONE TABLET BY MOUTH ONCE DAILY AT BEDTIME AND ONE TABLET THREE TIMES DAILY NEEDED 11/28/2017 01/26/2018 Inactive pantoprazole 40 mg tablet,delayed release RxNorm: 615174 TAKE ONE TABLET BY MOUTH ONCE DAILY AT BEDTIME 11/07/2017 11/26/2018 Inactive allopurinol 100 mg tablet RxNorm: 802237 TAKE ONE TABLET BY MOUTH ONCE DAILY 10/03/2017 08/02/2018 Inactive pantoprazole 40 mg tablet,delayed release RxNorm: 718603 1 Tablet(s) PO BID 09/01/2017 05/28/2018 Inactive Vitamin B-6 100 mg tablet RxNorm: 974482 1 Tablet(s) PO daily 09/01/2017 06/11/2018 Inactive dutasteride 0.5 mg capsule RxNorm: 514377 1 Capsule(s) PO QPM 09/01/2017 06/11/2018 Inactive spironolactone 25 mg tablet RxNorm: 198535 TAKE ONE TABLET BY MOUTH ONCE DAILY 08/15/2017 05/21/2018 Inactive citalopram 40 mg tablet RxNorm: 688284 TAKE ONE TABLET BY MOUTH ONCE DAILY 08/08/2017 05/04/2018 Inactive dexamethasone 0.5 mg tablet RxNorm: 328645 TAKE ONE TABLET BY MOUTH ONCE DAILY 08/08/2017 11/05/2017 Inactive clonazepam 1 mg tablet RxNorm: 134679 TAKE ONE TABLET BY MOUTH ONCE DAILY AT BEDTIME AND ONE THREE TIMES DAILY NEEDED 05/12/2017 08/08/2017 Inactive clonazepam 1 mg tablet RxNorm: 921139 1 Tablet(s) PO QHS AND 1 TAB PO TID PRN 05/12/2017 05/13/2017 Inactive oxybutynin chloride ER 10 mg tablet,extended release 24 hr RxNorm: 073250 1 Tablet(s) PO daily 04/29/2017 08/02/2017 Inactive dexamethasone 0.5 mg tablet RxNorm: 749086 TAKE ONE TABLET BY MOUTH ONCE DAILY 02/14/2017 04/14/2017 Inactive Flomax 0.4 mg capsule RxNorm: 374847 TAKE ONE CAPSULE BY MOUTH ONCE DAILY IN THE EVENING 02/14/2017 11/10/2017 Inactive pantoprazole 40 mg tablet,delayed release RxNorm: 663732 TAKE ONE TABLET BY MOUTH ONCE DAILY AT BEDTIME 02/14/2017 08/31/2017 Inactive oxybutynin chloride ER 10 mg tablet,extended release 24 hr RxNorm: 773579 1 Tablet(s) PO daily 01/25/2017 04/24/2017 Inactive dexamethasone 0.5 mg tablet RxNorm: 476919 TAKE ONE TABLET BY MOUTH ONCE DAILY 11/10/2016 12/09/2016 Inactive oxybutynin chloride ER 5 mg tablet,extended release 24 hr RxNorm: 362063 1 Tablet(s) PO daily 10/28/2016 10/27/2016 Inactive oxybutynin chloride ER 5 mg tablet,extended release 24 hr RxNorm: 661010 1 Tablet(s) PO daily 10/28/2016 01/24/2017 Inactive Detrol LA 2 mg capsule,extended release RxNorm: 303888 1 Capsule(s) PO QPM 10/26/2016 10/27/2016 Inactive clonazepam 1 mg tablet RxNorm: 222592 1 Tablet(s) PO QHS AND 1 TAB PO TID PRN 10/20/2016 04/17/2017 Inactive dexamethasone 0.5 mg tablet RxNorm: 740773 TAKE ONE TABLET BY MOUTH ONCE DAILY 10/06/2016 11/04/2016 Inactive allopurinol 100 mg tablet RxNorm: 230148 1 Tablet(s) PO daily 09/30/2016 09/24/2017 Inactive Vesicare 5 mg tablet RxNorm: 158439 1 Tablet(s) PO QPM 09/27/2016 12/12/2016 Inactive spironolactone 25 mg tablet RxNorm: 270554 1 Tablet(s) PO daily 08/06/2016 07/31/2017 Inactive citalopram 40 mg tablet RxNorm: 356769 1 Tablet(s) PO daily 06/28/2016 06/22/2017 Inactive Plavix 75 mg tablet RxNorm: 860786 1 Tablet(s) PO daily 04/27/2016 No Stop Date Active iron ER 159 mg (45 mg iron) tablet,extended release RxNorm: 320803 1 Tablet(s) PO daily 04/27/2016 08/31/2017 Inactive dexamethasone 0.5 mg tablet RxNorm: 309212 1/2 Tablet(s) PO daily 04/27/2016 02/20/2018 Inactive allopurinol 100 mg tablet RxNorm: 930501 1 Tablet(s) PO daily 04/27/2016 09/29/2016 Inactive clonazepam 1 mg tablet RxNorm: 003369 1 Tablet(s) PO QHS and 1 tab po TID prn 04/14/2016 10/07/2016 Inactive allopurinol 100 mg tablet RxNorm: 365041 1 Tablet(s) PO daily 02/17/2016 04/26/2016 Inactive citalopram 20 mg tablet RxNorm: 582075 1 Tablet(s) PO daily 01/20/2016 06/27/2016 Inactive Flomax 0.4 mg capsule RxNorm: 385843 1 Capsule(s) PO QPM 01/20/2016 01/13/2017 Inactive [SAVINGS FOR NON-COVERED DRUGS -- BIN:[id number], PCN: ASPROD1, Group: XXXXX, ID# [id number], Questions: . THIS IS NOT INSURANCE.] pantoprazole 40 mg tablet,delayed release RxNorm: 745367 1 Tablet(s) PO QHS 01/20/2016 01/13/2017 Inactive Colcrys 0.6 mg tablet RxNorm: 373816 1 Tablet(s) PO daily 01/06/2016 03/05/2016 Inactive take daily x 7 days then daily as needed for gout flair colchicine 0.6 mg tablet RxNorm: 443603 1 Tablet(s) PO BID 12/30/2015 01/01/2016 Inactive doxycycline hyclate 100 mg tablet RxNorm: 959699 1 Tablet(s) PO BID 12/19/2015 12/28/2015 Inactive doxycycline hyclate 100 mg tablet RxNorm: 245490 1 Tablet(s) PO BID 12/19/2015 12/18/2015 Inactive allopurinol 100 mg tablet RxNorm: 985986 1 Tablet(s) PO daily 12/16/2015 02/16/2016 Inactive colchicine 0.6 mg tablet RxNorm: 401524 Tablet(s) PO 1.2 mg PO in the morning and 0.6 mg at night for 2 days. 12/16/2015 12/29/2015 Inactive allopurinol 100 mg tablet RxNorm: 225821 1 Tablet(s) PO daily 12/16/2015 12/15/2015 Inactive Protonix 40 mg tablet,delayed release RxNorm: 139939 1 Tablet(s) PO daily 12/16/2015 01/14/2016 Inactive Bactrim DS 800 mg-160 mg tablet RxNorm: 679217 1 Tablet(s) PO BID 12/16/2015 12/18/2015 Inactive colchicine 0.6 mg tablet RxNorm: 697288 Tablet(s) PO 1.2 mg for the first dose and 0.6 mg an hour after 12/15/2015 12/15/2015 Inactive dexamethasone 0.5 mg tablet RxNorm: 057790 1 Tablet(s) PO 12/12/2015 02/09/2016 Inactive Plavix 75 mg tablet RxNorm: 024613 1 Tablet(s) PO every other day 12/12/2015 04/09/2016 Inactive nitroglycerin 0.4 mg sublingual tablet RxNorm: 466560 1 Tablet(s) SL x3 in 15 min as needed 12/12/2015 04/26/2016 Inactive clonazepam 1 mg tablet RxNorm: 062349 1 Tablet(s) PO QHS and 1 tab po TID prn 12/11/2015 12/03/2016 Inactive [place] 5 mg-325 mg tablet RxNorm: 989045 1-2 Tablet(s) PO Q6 as needed 12/11/2015 09/26/2016 Inactive clonazepam 1 mg tablet RxNorm: 117513 1 Tablet(s) PO QHS and 1 tab po TID prn 12/04/2015 12/10/2015 Inactive Flomax 0.4 mg capsule RxNorm: 836552 1 Capsule(s) PO QPM 09/22/2015 01/19/2016 Inactive [SAVINGS FOR NON-COVERED DRUGS -- BIN:110672, PCN: ASPROD1, Group: XXXXX, ID# [id number], Questions: . THIS IS NOT INSURANCE.] Flomax 0.4 mg capsule RxNorm: 686819 1 Capsule(s) PO QPM 09/16/2015 09/21/2015 Inactive [SAVINGS FOR NON-COVERED DRUGS -- BIN:[id number], PCN: ASPROD1, Group: XXXXX, ID# [id number], Questions: . THIS IS NOT INSURANCE.] clonazepam 1 mg tablet RxNorm: 894385 1 Tablet(s) PO QHS 08/29/2015 12/03/2015 Inactive coenzyme Q10 10 mg tablet RxNorm: 196260 1 Tablet(s) PO daily 07/30/2015 01/05/2016 Inactive spironolactone 25 mg tablet RxNorm: 882574 1 Tablet(s) PO daily 07/28/2015 07/21/2016 Inactive spironolactone 25 mg tablet RxNorm: 806465 1 Tablet(s) PO daily 07/22/2015 07/27/2015 Inactive clonazepam 1 mg tablet RxNorm: 514617 1 Tablet(s) PO QHS 05/23/2015 08/28/2015 Inactive losartan 25 mg tablet RxNorm: 818206 1 Tablet(s) PO daily 02/19/2015 03/20/2015 Inactive Flonase Allergy Relief 50 mcg/actuation nasal spray,suspension RxNorm: 1 [place] NASAL BID 02/19/2015 04/26/2016 Inactive [SAVINGS FOR NON-COVERED DRUGS -- BIN:964000, PCN: ASPROD1, Group: XXXXX, ID# [id number], Questions: . THIS IS NOT INSURANCE.] Flomax 0.4 mg capsule RxNorm: 995489 1 Capsule(s) PO QPM 02/19/2015 09/15/2015 Inactive [SAVINGS FOR NON-COVERED DRUGS -- BIN:085762, PCN: ASPROD1, Group: XXXXX, ID# XXXXXXX, Questions: . THIS IS NOT INSURANCE.] citalopram 20 mg tablet RxNorm: 718119 1 Tablet(s) PO daily 02/19/2015 03/20/2015 Inactive atenolol 25 mg tablet RxNorm: 694646 1 Tablet(s) PO daily 02/19/2015 03/20/2015 Inactive Lipitor 20 mg tablet RxNorm: 962055 1 Tablet(s) PO daily 02/19/2015 03/20/2015 Inactive vitamin B complex oral RxNorm: 38266 oral No Start Date Active Claritin-D 24 Hour oral RxNorm: 742519 oral No Start Date Active Lipitor oral RxNorm: 20927 oral No Start Date Active cetirizine 10 mg tablet RxNorm: 8345722 1 Tablet(s) PO daily No Start Date Active Aleve 220 mg tablet RxNorm: 602035 Tablet(s) PO as needed No Start Date Active Vitamin D3 1,000 unit capsule RxNorm: 732126 2 Capsule(s) PO daily No Start Date Active Centrum Complete oral RxNorm: 71910 oral No Start Date Active glucosamine HCl 1,500 mg tablet RxNorm: 284166 1 Tablet(s) with 1200 mg chrondroitin PO daily No Start Date 08/01/2018 Inactive ranitidine 150 mg tablet RxNorm: 333588 1 Tablet(s) PO TID No Start Date 12/11/2015 Inactive [place] 5 mg-325 mg tablet RxNorm: 074130 1-2 Tablet(s) PO Q6 as needed No Start Date 12/10/2015 Inactive krill oil oral RxNorm: 90549 oral No Start Date 08/07/2018 Inactive Vitamin B-6 100 mg tablet RxNorm: 563870 1 Tablet(s) PO TID No Start Date 08/31/2017 Inactive spironolactone 25 mg tablet RxNorm: 122096 1 Tablet(s) PO daily No Start Date 07/21/2015 Inactive Vitamin D3 oral RxNorm: 2418 oral No Start Date 02/17/2016 Inactive clonazepam 1 mg tablet RxNorm: 265083 1 Tablet(s) PO daily No Start Date 05/22/2015 Inactive Glucosamine oral RxNorm: 4845 oral No Start Date 04/26/2016 Inactive losartan 50 mg tablet RxNorm: 533375 1 Tablet(s) PO daily No Start Date 05/23/2018 Inactive Plavix 75 mg tablet RxNorm: 804128 1 Tablet(s) PO every other day No Start Date 12/11/2015 Inactive Osteo Bi-Flex oral RxNorm: 5007557 oral No Start Date 09/01/2017 Inactive iron ER 159 mg (45 mg iron) tablet,extended release RxNorm: 750921 1 Tablet(s) PO BID No Start Date 04/26/2016 Inactive amlodipine 5 mg tablet RxNorm: 389746 1 Tablet(s) PO daily No Start Date 01/05/2016 Inactive aspirin 81 mg tablet,delayed release RxNorm: 826225 1 Tablet(s) PO daily No Start Date 05/09/2018 Inactive dexamethasone 0.5 mg tablet RxNorm: 125232 1 Tablet(s) PO No Start Date 12/11/2015 Inactive Vitamin B-12 1,000 mcg tablet RxNorm: 853150 6 Tablet(s) PO every other day No Start Date 06/11/2018 Inactive colchicine 0.6 mg tablet RxNorm: 430286 Tablet(s) PO 1.2 mg for the first dose and 0.6 mg an hour after No Start Date 12/14/2015 Inactive nitroglycerin 0.4 mg sublingual tablet RxNorm: 508365 1 Tablet(s) SL x3 in 15 min as needed No Start Date 12/11/2015 Inactive Fish Oil 1,000 mg capsule RxNorm: 1 Capsule(s) PO daily No Start Date 04/26/2016 Inactive Ecotrin Low Strength 81 mg tablet,enteric coated RxNorm: 9392109 1 Tablet(s) PO daily No Start Date 09/27/2016 Inactive Medication Administered Medication Codes Instructions Start Date Status Kenalog 40 mg/mL suspension for injection RxNorm: 8101604 Milliliter 06/12/2018 No longer Active Immunizations Vaccine [...] 30.4 pg 10/20/2018 Cbc With Differential Ord2 [place]% 5.7 % 10/20/2018 Cbc With Differential Ord2 [...] 1.69 K/ul 10/20/2018 Cbc With Differential Ord2 [place] ABS# 0.6 K/ul 10/20/2018 Cbc With Differential Ord2 Eos ABS# 0.0 K/ul 10/20/2018 Cbc With Differential Ord2 Baso ABS# 0.0 K/ul 10/20/2018 Comp Metabolic Doo433 NA 140 mEq/L 10/20/2018 Comp Metabolic Zzc348 K 4.0 mEq/L 10/20/2018 Comp Metabolic Gnw341 CL 104 mEq/L 10/20/2018 Comp Metabolic Oss369 CO2 28.0 mEq/L 10/20/2018 Comp Metabolic Pcw879 ANION GAP 12 10/20/2018 Comp Metabolic Ehd696 GLUCOSE 113 mg/dL 10/20/2018 Comp Metabolic Bds164 Creat 1.0 mg/dL 10/20/2018 Comp Metabolic Pxo838 eGFR 75 ml/min/1.73m2 10/20/2018 Comp Metabolic Ivw782 BUN 18 mg/dL 10/20/2018 Comp Metabolic Omu907 B/C Ratio 17.8 Ratio 10/20/2018 Comp Metabolic Pvi508 CALCIUM 9.8 mg/dL 10/20/2018 Comp Metabolic Cht392 ALK PHOS 70 U/L 10/20/2018 Comp Metabolic Url394 AST(SGOT) 15 U/L 10/20/2018 Comp Metabolic Rkm923 ALT(SGPT) 18 U/L 10/20/2018 Comp Metabolic Vmp813 BILI T 1.1 mg/dL 10/20/2018 Comp Metabolic Qzi297 ALBUMIN 4.4 g/dL 10/20/2018 Comp Metabolic Pok357 TPRO 6.9 g/dL 10/20/2018 Comp Metabolic Gjg643 GLOB 2.5 g/dL 10/20/2018 Comp Metabolic Rdj451 A/G Ratio 1.7 Ratio 10/20/2018 Comp Metabolic Mog280 Osmo 282 mOsmo 10/20/2018 Urinalysis Ord28 U-Color [...] 29.0 pg 07/14/2018 Cbc With Differential Ord2 [place]% 7.5 % 07/14/2018 Cbc With Differential Ord2 [...] 1.92 K/ul 07/14/2018 Cbc With Differential Ord2 [place] ABS# 0.4 K/ul 07/14/2018 Cbc With Differential Ord2 Eos ABS# 0.2 K/ul 07/14/2018 Cbc With Differential Ord2 Baso ABS# 0.0 K/ul 07/14/2018 Renal Kvu200 NA 140 mEq/L 07/14/2018 Renal Tqe519 K 4.2 mEq/L 07/14/2018 Renal Rvx342 CL 103 mEq/L 07/14/2018 Renal Wcx004 CO2 29.0 mEq/L 07/14/2018 Renal Jom567 ANION GAP 12 07/14/2018 Renal Yuk867 Osmo 280 mOsmo 07/14/2018 Renal Nnr753 GLUCOSE 95 mg/dL 07/14/2018 Renal Asu370 BUN 15 mg/dL 07/14/2018 Renal Zta731 Creat 1.2 mg/dL 07/14/2018 Renal Qfw267 eGFR 64 ml/min/1.73m2 07/14/2018 Renal Coz528 B/C Ratio 12.8 Ratio 07/14/2018 Renal Bqh354 CALCIUM 9.6 mg/dL 07/14/2018 Renal Mon896 PHOS 3.2 mg/dL 07/14/2018 Renal Mqb296 ALBUMIN 4.4 g/dL 07/14/2018 Magnesium Ord90 Mag [...] 29.7 pg 06/08/2018 Cbc With Differential Ord2 [place]% 8.7 % 06/08/2018 Cbc With Differential Ord2 [...] 2.14 K/ul 06/08/2018 Cbc With Differential Ord2 [place] ABS# 0.5 K/ul 06/08/2018 Cbc With Differential Ord2 Eos ABS# 0.2 K/ul 06/08/2018 Cbc With Differential Ord2 Baso ABS# 0.0 K/ul 06/08/2018 Comp Metabolic Mfa403 NA 139 mEq/L 06/08/2018 Comp Metabolic Zzy218 K 4.6 mEq/L 06/08/2018 Comp Metabolic Hgd941 CL 105 mEq/L 06/08/2018 Comp Metabolic Yfi997 CO2 26.0 mEq/L 06/08/2018 Comp Metabolic Ndm855 ANION GAP 13 06/08/2018 Comp Metabolic Ped050 GLUCOSE 95 mg/dL 06/08/2018 Comp Metabolic Hoa883 Creat 1.2 mg/dL 06/08/2018 Comp Metabolic Oxb532 eGFR 59 ml/min/1.73m2 06/08/2018 Comp Metabolic Kzj391 BUN 12 mg/dL 06/08/2018 Comp Metabolic Owo788 B/C Ratio 9.7 Ratio 06/08/2018 Comp Metabolic Mac443 CALCIUM 9.9 mg/dL 06/08/2018 Comp Metabolic Hjs974 ALK PHOS 70 U/L 06/08/2018 Comp Metabolic Vkr722 AST(SGOT) 21 U/L 06/08/2018 Comp Metabolic Nyj700 ALT(SGPT) 20 U/L 06/08/2018 Comp Metabolic Yyp373 BILI T 1.0 mg/dL 06/08/2018 Comp Metabolic Kkc875 ALBUMIN 4.5 g/dL 06/08/2018 Comp Metabolic Hfl602 TPRO 7.2 g/dL 06/08/2018 Comp Metabolic Kcc471 GLOB 2.8 g/dL 06/08/2018 Comp Metabolic Fsu798 A/G Ratio 1.6 Ratio 06/08/2018 Comp Metabolic Vkj951 Osmo 277 mOsmo 06/08/2018 Cbc With Differential [...] 30.6 pg 05/10/2018 Cbc With Differential Ord2 [place]% 6.5 % 05/10/2018 Cbc With Differential Ord2 [...] 1.94 K/ul 05/10/2018 Cbc With Differential Ord2 [place] ABS# 0.4 K/ul 05/10/2018 Cbc With Differential [...] Ord30 C/HDL 4.2 Ratio 01/26/2018 Comp Metabolic Yzj534 NA 138 mEq/L 01/26/2018 Comp Metabolic Zbd587 K 4.2 mEq/L 01/26/2018 Comp Metabolic Phv056 CL 105 mEq/L 01/26/2018 Comp Metabolic Dqg847 CO2 23.0 mEq/L 01/26/2018 Comp Metabolic Esn269 ANION GAP 14 01/26/2018 Comp Metabolic Bwl436 GLUCOSE 89 mg/dL 01/26/2018 Comp Metabolic Sau172 Creat 1.1 mg/dL 01/26/2018 Comp Metabolic Xgy263 eGFR 70 ml/min/1.73m2 01/26/2018 Comp Metabolic Rqw447 BUN 18 mg/dL 01/26/2018 Comp Metabolic Txh806 B/C Ratio 16.8 Ratio 01/26/2018 Comp Metabolic Iws654 CALCIUM 9.2 mg/dL 01/26/2018 Comp Metabolic Niq507 ALK PHOS 67 U/L 01/26/2018 Comp Metabolic Tnx747 AST(SGOT) 31 U/L 01/26/2018 Comp Metabolic Sfh597 ALT(SGPT) 23 U/L 01/26/2018 Comp Metabolic Rlr889 BILI T 1.7 mg/dL 01/26/2018 Comp Metabolic Hvn313 ALBUMIN 3.9 g/dL 01/26/2018 Comp Metabolic Tvx070 TPRO 6.7 g/dL 01/26/2018 Comp Metabolic Bdi354 GLOB 2.8 g/dL 01/26/2018 Comp Metabolic Ogj673 A/G Ratio 1.4 Ratio 01/26/2018 Comp Metabolic Qph775 Osmo 277 mOsmo 01/26/2018 Cbc With Differential [...] 30.7 pg 01/26/2018 Cbc With Differential Ord2 [place]% 7.1 % 01/26/2018 Cbc With Differential Ord2 [...] 2.40 K/ul 01/26/2018 Cbc With Differential Ord2 [place] ABS# 0.5 K/ul 01/26/2018 Cbc With Differential Ord2 Eos ABS# 0.2 K/ul 01/26/2018 Cbc With Differential Ord2 Baso ABS# 0.0 K/ul 01/26/2018 Tsh Ord6 TSH (3rd IS) 1.81 uIU/mL 01/26/2018 Testosterone Vsh716 Testo 370.3 ng/dL 01/26/2018 C A/B FLU [id number] Influenza A Scr Negative 12/08/2017 C A/B FLU [id number] Influenza B Scr Negative 12/08/2017 C A/B FLU [id number] Influenza Intrp B AG:PRID:PT:NOSE:NOM:IF See Footnote 12/08/2017 [...] 30.8 pg 04/11/2017 Cbc With Differential Ord2 [place]% 8.1 % 04/11/2017 Cbc With Differential Ord2 [...] 1.91 K/ul 04/11/2017 Cbc With Differential Ord2 [place] ABS# 0.5 K/ul 04/11/2017 Cbc With Differential Ord2 Eos ABS# 0.2 K/ul 04/11/2017 Cbc With Differential Ord2 Baso ABS# 0.0 K/ul 04/11/2017 Comp Metabolic Scz094 NA 140 mEq/L 04/11/2017 Comp Metabolic Zfp354 K 4.1 mEq/L 04/11/2017 Comp Metabolic Fwi906 CL 105 mEq/L 04/11/2017 Comp Metabolic Fje698 CO2 26.0 mEq/L 04/11/2017 Comp Metabolic Yez109 ANION GAP 13 04/11/2017 Comp Metabolic Lkg512 GLUCOSE 88 mg/dL 04/11/2017 Comp Metabolic Vhe899 Creat 1.1 mg/dL 04/11/2017 Comp Metabolic Zyc789 eGFR 66 ml/min/1.73m2 04/11/2017 Comp Metabolic Qcx579 BUN 18 mg/dL 04/11/2017 Comp Metabolic Hzl371 B/C Ratio 15.9 Ratio 04/11/2017 Comp Metabolic Yip436 CALCIUM 9.0 mg/dL 04/11/2017 Comp Metabolic Rti580 ALK PHOS 72 U/L 04/11/2017 Comp Metabolic Gin756 AST(SGOT) 22 U/L 04/11/2017 Comp Metabolic Vqk915 ALT(SGPT) 26 U/L 04/11/2017 Comp Metabolic Jgp579 BILI T 1.0 mg/dL 04/11/2017 Comp Metabolic Bob396 ALBUMIN 4.0 g/dL 04/11/2017 Comp Metabolic Ula540 TPRO 6.4 g/dL 04/11/2017 Comp Metabolic Sos774 GLOB 2.4 g/dL 04/11/2017 Comp Metabolic Qpb545 A/G Ratio 1.6 Ratio 04/11/2017 Comp Metabolic Hfx978 Osmo 281 mOsmo 04/11/2017 Vitamin D 25 Oh Cne3378 VITAMIN D, 25 HYDROXY 65.52 ng/mL 05/19/2016 [...] 28.5 pg 05/18/2016 Cbc With Differential Ord2 [place]% 7.2 % 05/18/2016 Cbc With Differential Ord2 [...] 1.80 K/ul 05/18/2016 Cbc With Differential Ord2 [place] ABS# 0.4 K/ul 05/18/2016 Cbc With Differential Ord2 Eos ABS# 0.2 K/ul 05/18/2016 Cbc With Differential Ord2 Baso ABS# 0.0 K/ul 05/18/2016 Magnesium Ord90 Mag 2.0 mg/dL 05/18/2016 Renal Bqd735 NA 139 mEq/L 05/18/2016 Renal Okc250 K 4.0 mEq/L 05/18/2016 Renal Qeq533 CL 104 mEq/L 05/18/2016 Renal Mwd455 CO2 27.0 mEq/L 05/18/2016 Renal Fkb637 ANION GAP 12 05/18/2016 Renal Qsi587 Osmo 279 mOsmo 05/18/2016 Renal Dyl095 GLUCOSE 91 mg/dL 05/18/2016 Renal Pcs535 BUN 18 mg/dL 05/18/2016 Renal Rek803 Creat 1.3 mg/dL 05/18/2016 Renal Sxa857 eGFR 59 ml/min/1.73m2 05/18/2016 Renal Ucg759 B/C Ratio 14.3 Ratio 05/18/2016 Renal Ylm675 CALCIUM 9.3 mg/dL 05/18/2016 Renal Zuf590 PHOS 3.2 mg/dL 05/18/2016 Renal Dlb254 ALBUMIN 4.2 g/dL 05/18/2016 Random Urine Protein/Creatinine Ratio Fbj3090 U Prot 15.0 mg/dl 05/18/2016 Random Urine Protein/Creatinine Ratio Cfc0948 U CREAT 141.0 mg/dL 05/18/2016 Random Urine Protein/Creatinine Ratio Htt7509 R MTP/Creat Ratio 0.11 05/18/2016 Urinalysis Ord28 [...] 28.5 pg 02/19/2016 Cbc With Differential Ord2 [place]% 9.5 % 02/19/2016 Cbc With Differential Ord2 [...] 1.91 K/ul 02/19/2016 Cbc With Differential Ord2 [place] ABS# 0.5 K/ul 02/19/2016 Cbc With Differential Ord2 Eos ABS# 0.2 K/ul 02/19/2016 Cbc With Differential Ord2 Baso ABS# 0.0 K/ul 02/19/2016 Cbc With Differential Ord2 New Analyzer Notice Please note new ref ranges starting 10-29-2015 due to implemntation of new five part differential hematolgy analyzer. 02/19/2016 Tsh Ord6 hTSH II 2.10 uIU/mL 02/19/2016 Comp Metabolic Zxs082 NA 138 mEq/L 02/19/2016 Comp Metabolic Gmp979 K 3.8 mEq/L 02/19/2016 Comp Metabolic Vpz376 CL 103 mEq/L 02/19/2016 Comp Metabolic Lyd968 CO2 28.0 mEq/L 02/19/2016 Comp Metabolic Obw965 ANION GAP 11 02/19/2016 Comp Metabolic Etk725 GLUCOSE 94 mg/dL 02/19/2016 Comp Metabolic Xcu411 Creat 1.0 mg/dL 02/19/2016 Comp Metabolic Uak332 eGFR 75 ml/min/1.73m2 02/19/2016 Comp Metabolic Mer791 BUN 18 mg/dL 02/19/2016 Comp Metabolic Btx751 B/C Ratio 17.6 Ratio 02/19/2016 Comp Metabolic Sye490 CALCIUM 9.6 mg/dL 02/19/2016 Comp Metabolic Mzj973 ALK PHOS 93 U/L 02/19/2016 Comp Metabolic Zyx996 AST(SGOT) 23 U/L 02/19/2016 Comp Metabolic Qyc757 ALT(SGPT) 19 U/L 02/19/2016 Comp Metabolic Ntp252 BILI T 0.8 mg/dL 02/19/2016 Comp Metabolic Poq486 ALBUMIN 4.1 g/dL 02/19/2016 Comp Metabolic Pgp796 TPRO 6.8 g/dL 02/19/2016 Comp Metabolic Qks970 GLOB 2.7 g/dL 02/19/2016 Comp Metabolic Dfz174 A/G Ratio 1.5 Ratio 02/19/2016 Comp Metabolic Gmd461 Osmo 277 mOsmo 02/19/2016 Uric Acid Ord77 Uric A 6.0 mg/dL 02/19/2016 Total Psa Ord10 PSA 0.82 ng/mL 02/19/2016 Comp Metabolic Wlk926 NA 140 mEq/L 12/16/2015 Comp Metabolic Exw645 K 4.0 mEq/L 12/16/2015 Comp Metabolic Ilh000 CL 105 mEq/L 12/16/2015 Comp Metabolic Mpf602 CO2 24.0 mEq/L 12/16/2015 Comp Metabolic Qqu477 ANION GAP 15 12/16/2015 Comp Metabolic Klw102 GLUCOSE 85 mg/dL 12/16/2015 Comp Metabolic Umw586 Creat 1.2 mg/dL 12/16/2015 Comp Metabolic Kfw296 eGFR 65 ml/min/1.73m2 12/16/2015 Comp Metabolic Mpw539 BUN 14 mg/dL 12/16/2015 Comp Metabolic Age507 B/C Ratio 12.1 Ratio 12/16/2015 Comp Metabolic Zgy596 CALCIUM 9.1 mg/dL 12/16/2015 Comp Metabolic Xeo343 ALK PHOS 162 U/L 12/16/2015 Comp Metabolic Pth102 AST(SGOT) 14 U/L 12/16/2015 Comp Metabolic Fwq639 ALT(SGPT) 17 U/L 12/16/2015 Comp Metabolic Cqw483 BILI T 1.0 mg/dL 12/16/2015 Comp Metabolic Hda434 ALBUMIN 3.4 g/dL 12/16/2015 Comp Metabolic Hnu470 TPRO 6.2 g/dL 12/16/2015 Comp Metabolic Moo551 GLOB 2.9 g/dL 12/16/2015 Comp Metabolic Mgj633 A/G Ratio 1.2 Ratio 12/16/2015 Comp Metabolic Fef806 Osmo 279 mOsmo 12/16/2015 Uric Acid Ord77 [...] 29.9 % 12/16/2015 Cbc With Differential Ord2 [place]% 7.5 % 12/16/2015 Cbc With Differential Ord2 [...] 1.52 K/ul 12/16/2015 Cbc With Differential Ord2 [place] ABS# 0.4 K/ul 12/16/2015 Cbc With Differential [...] C/HDL 4.0 Ratio 07/21/2015 Urine Protein 24Hr Mkn219 U Prot 5.1 mg/dl 05/16/2015 Urine Protein 24Hr Mth288 U Prot24 71.5 mg/24hr 05/16/2015 Total Volume Urine Yrl984 TV/24hr 1400 ml 05/16/2015 Total Psa Ord10 PSA 0.70 ng/mL 05/15/2015 Renal Nhk115 NA 135 mEq/L 05/15/2015 Renal Bsc677 K 3.9 mEq/L 05/15/2015 Renal Clb883 CL 101 mEq/L 05/15/2015 Renal Ujl468 CO2 27.0 mEq/L 05/15/2015 Renal Noe835 ANION GAP 11 05/15/2015 Renal Ylu994 Osmo 274 mOsmo 05/15/2015 Renal Ffu815 GLUCOSE 132 mg/dL 05/15/2015 Renal Sdy788 BUN 19 mg/dL 05/15/2015 Renal Wnt759 Creat 1.1 mg/dL 05/15/2015 Renal Bdf310 eGFR 67 ml/min/1.73m2 05/15/2015 Renal Wsw353 B/C Ratio 17.0 Ratio 05/15/2015 Renal Gwo709 CALCIUM 9.6 mg/dL 05/15/2015 Renal Atm048 PHOS 3.0 mg/dL 05/15/2015 Renal Odm711 ALBUMIN 4.3 g/dL 05/15/2015 Cbc With Differential [...] Formatting Model/CDA Sections, Assigned to/Sharee Ramirez CPT-4: [id number] 07/05/2018 THER/PROPH/DIAG INJ SC/IM CPT-4: 47058 06/12/2018 TRIAMCINOLONE ACET INJ NOS CPT-4: J3301 06/12/2018 PPPS, SUBSEQ VISIT CPT- 4: G0439 08/03/2017 ADMIN INFLUENZA VIRUS VAC CPT-4: G0008 06/28/2016 FLU VACC PRSV FREE INC ANTIG CPT-4: 78429 06/28/2016 TENIVAC TD VACCINE NO PRSRV 7/> IM CPT-4: 52176 06/28/2016 OCCULT BLOOD FECES CPT- 4: 93265 02/19/2015 Vital Signs Date Vital 12/25/2018 Blood Pressure 1: 112/62 Code: 8480-6 BMI: 28.6 Code: 40449-5 Heart Rate 1: 76 bpm Height: 6' SpO2: 96% Weight: 211 lbs 12/13/2018 Blood Pressure 1: 114/78 Code: 8480-6 BMI: 29.4 Code: 57136-0 Heart Rate 1: 73 bpm Height: 6' SpO2: 93% Weight: 217 lbs 11/27/2018 Blood Pressure 1: 110/70 Code: 8480-6 BMI: 28.5 Code: 03465-7 Heart Rate 1: 90 bpm Height: 6' SpO2: 95% Temperature: 36.8 (C) / 98.2 (F) Weight: 210 lbs 8 oz 09/26/2018 Blood Pressure 1: 130/80 Code: 8480-6 BMI: 29.6 Code: 89441-2 Heart Rate 1: 98 bpm Height: 6' SpO2: 93% Weight: 218 lbs 08/10/2018 BMI: 29.4 Code: 82580-4 Height: 6' Weight: 217 lbs 07/26/2018 Blood Pressure 1: 116/72 Code: 8480-6 BMI: 29.4 Code: 30680-5 Heart Rate 1: 102 bpm Height: 6' SpO2: 96% Weight: 217 lbs 07/05/2018 Blood Pressure 1: 132/72 Code: 8480-6 Heart Rate 1: 60 bpm SpO2: 95% 06/12/2018 Blood Pressure 1: 120/78 Code: 8480-6 BMI: 29.6 Code: 53904-9 Heart Rate 1: 103 bpm Height: 6' SpO2: 96% Weight: 218 lbs 05/10/2018 Blood Pressure 1: 114/68 Code: 8480-6 BMI: 29.4 Code: 46219-2 Heart Rate 1: 92 bpm Height: 6' SpO2: 97% Weight: 217 lbs 03/27/2018 Blood Pressure 1: 126/74 Code: 8480-6 BMI: 30.1 Code: 03223-8 Heart Rate 1: 103 bpm Height: 6' SpO2: 96% Weight: 222 lbs 01/25/2018 Blood Pressure 1: 122/70 Code: 8480-6 Blood Pressure 2: 126/73 Code: 8480-6 Heart Rate 1: 63 bpm SpO2: 94% 01/24/2018 Blood Pressure 1: 110/72 Code: 8480-6 BMI: 29.7 Code: 08271-8 Heart Rate 1: 88 bpm Height: 6' SpO2: 95% Weight: 219 lbs 12/08/2017 Blood Pressure 1: 120/68 Code: 8480-6 BMI: 30.0 Code: 78441-1 Heart Rate 1: 91 bpm Height: 6' SpO2: 96% Temperature: 36.7 (C) / 98.1 (F) Weight: 221 lbs 10/27/2017 Blood Pressure 1: 124/76 Code: 8480-6 BMI: 30.1 Code: 68604-0 Heart Rate 1: 69 bpm Height: 6' SpO2: 95% Weight: 222 lbs 09/29/2017 Blood Pressure 1: 118/66 Code: 8480-6 BMI: 29.9 Code: 20437-3 Heart Rate 1: 81 bpm Height: 6' SpO2: 95% Weight: 220 lbs 8 oz 09/01/2017 Blood Pressure 1: 122/82 Code: 8480-6 BMI: 29.6 Code: 18419-1 Heart Rate 1: 75 bpm Height: 6' SpO2: 97% Weight: 218 lbs 08/03/2017 Blood Pressure 1: 120/68 Code: 8480-6 Heart Rate 1: 68 bpm Height: 6' SpO2: 94% Waist Measure (cm): 97 cm 04/26/2017 Blood Pressure 1: 122/72 Code: 8480-6 BMI: 29.4 Code: 22380-7 Heart Rate 1: 85 bpm Height: 6' SpO2: 92% Weight: 217 lbs 01/25/2017 Blood Pressure 1: 118/78 Code: 8480-6 BMI: 29.4 Code: 29599-0 Heart Rate 1: 72 bpm Height: 6' SpO2: 94% Temperature: 36.9 (C) / 98.5 (F) Weight: 217 lbs 10/26/2016 Blood Pressure 1: 152/86 Code: 8480-6 BMI: 29.7 Code: 13915-6 Heart Rate 1: 58 bpm Height: 6' Weight: 219 lbs 09/27/2016 Blood Pressure 1: 138/80 Code: 8480-6 BMI: 29.4 Code: 58059-1 Heart Rate 1: 52 bpm Height: 6' SpO2: 98% Weight: 217 lbs 06/28/2016 Blood Pressure 1: 128/86 Code: 8480-6 BMI: 29.6 Code: 17157-7 Heart Rate 1: 69 bpm Height: 6' SpO2: 93% Weight: 218 lbs 04/27/2016 Blood Pressure 1: 118/82 Code: 8480-6 BMI: 29.3 Code: 50335-8 Heart Rate 1: 85 bpm Height: 6' SpO2: 98% Weight: 216 lbs 02/17/2016 Blood Pressure 1: 132/80 Code: 8480-6 BMI: 28.8 Code: 93745-4 Heart Rate 1: 94 bpm Height: 6' SpO2: 98% Weight: 212 lbs 01/20/2016 Blood Pressure 1: 120/70 Code: 8480-6 BMI: 29.7 Code: 40742-7 Heart Rate 1: 87 bpm Height: 6' SpO2: 92% Weight: 219 lbs 01/06/2016 Blood Pressure 1: 122/88 Code: 8480-6 BMI: 28.8 Code: 98335-6 Heart Rate 1: 83 bpm Height: 6' SpO2: 97% Weight: 212 lbs 12/16/2015 Blood Pressure 1: 98/62 Code: 8480-6 Heart Rate 1: 62 bpm Height: 6' SpO2: 90% Weight: 11/27/2015 Blood Pressure 1: 90/64 Code: 8480-6 Blood Pressure 1: 110/80 Code: 8480-6 Heart Rate 1: 91 bpm Height: 6' SpO2: 92% Weight: 07/30/2015 Blood Pressure 1: 112/82 Code: 8480-6 BMI: 30.5 Code: 56070-3 Heart Rate 1: 82 bpm Height: 6' SpO2: 92% Weight: 225 lbs 06/09/2015 Blood Pressure 1: 130/76 Code: 8480-6 BMI: 31.1 Code: 19012-2 Heart Rate 1: 65 bpm Height: 6' SpO2: 96% Weight: 229 lbs 04/29/2015 Blood Pressure 1: 118/78 Code: 8480-6 BMI: 30.7 Code: 48038-5 Heart Rate 1: 70 bpm Height: 6' Weight: 226 lbs 02/19/2015 Blood Pressure 1: 118/70 Code: 8480-6 BMI: 29.7 Code: 97618-4 Heart Rate 1: 68 bpm Height: 6' [...] that it is in conjuction with Dr. Mcdoanld intake - sinus congestion Location frontal sinuses [...] data Encounters Encounter Performer Location Codes Date 42803 EST. PATIENT, LEVEL IV Diagnosis: Other fatigue[ICD10: R53.83] Diagnosis: Obstructive sleep apnea (adult) (pediatric)[ICD10: G47.33] Diagnosis: Other malaise[ICD10: R53.81] [facility] CPT-4: 86440 12/25/[id number]) 55264 EST. PATIENT, LEVEL IV Diagnosis: Shortness of breath[ICD10: R06.02] Diagnosis: Other fatigue[ICD10: R53.83] Diagnosis: Obstructive sleep apnea (adult) (pediatric)[ICD10: G47.33] Diagnosis: Other malaise[ICD10: R53.81] Lesley Butcher MD, [facility] CPT-4: 83332 12/13/2018 ([id number]) 72276 EST. PATIENT, LEVEL IV Diagnosis: Shortness of breath[ICD10: R06.02] Diagnosis: Dizziness and giddiness[ICD10: R42] Diagnosis: Other fatigue[ICD10: R53.83] Diagnosis: Essential (primary) hypertension[ICD10: I10] Diagnosis: Muscle weakness (generalized)[ICD10: M62.81] Merline Butcher MD, [facility] CPT-4: 61535 11/27/2018 ([id number]) 84807 EST. PATIENT, LEVEL IV Diagnosis: Essential (primary) hypertension[ICD10: I10] Diagnosis: Vertigo of central origin, right ear[ICD10: H81.41] Diagnosis: Low back pain[ICD10: M54.5] Lesley Butcher MD, [facility] CPT-4: 75987 09/26/2018 ([id number]) 98008 EST. PATIENT, LEVEL III Diagnosis: Dizziness and giddiness[ICD10: R42] Diagnosis: Vertigo of central origin, right ear[ICD10: H81.41] Diagnosis: Essential (primary) hypertension[ICD10: I10] Lesley Butcher MD [facility] CPT-4: 38211 07/26/2018 ([id number]) 30746 EST. PATIENT, LEVEL III Diagnosis: Essential (primary) hypertension[ICD10: I10] Lesley Butcher MD, [facility] CPT-4: 38179 06/12/2018 ([id number]) 85178 EST. PATIENT, LEVEL IV Diagnosis: Other iron deficiency anemias[ICD10: D50.8] Diagnosis: Weakness[ICD10: R53.1] Diagnosis: Diverticulosis of large intestine without perforation or abscess with bleeding[ICD10: K57.31] Lesley Butcher MD, [facility] CPT-4: 32378 05/10/2018 ([id number]) 69855 EST. PATIENT, LEVEL IV Diagnosis: Essential (primary) hypertension[ICD10: I10] Diagnosis: Major depressive disorder, recurrent, mild[ICD10: F33.0] Diagnosis: Sensorineural hearing loss, bilateral[ICD10: H90.3] Lesley Butcher MD, [facility] CPT-4: 40846 03/27/2018 ([id number]) Miscellaneous no charge Diagnosis: Essential (primary) hypertension[ICD10: I10] Mady Butcher MD, [facility] CPT-4: 68747 01/25/2018 ([id number]) 08085 EST. PATIENT, LEVEL IV Diagnosis: Essential (primary) hypertension[ICD10: I10] Diagnosis: Sensorineural hearing loss, bilateral[ICD10: H90.3] Diagnosis: Mixed hyperlipidemia[ICD10: E78.2] Diagnosis: Major depressive disorder, recurrent, mild[ICD10: F33.0] Lesley Butcher MD, [facility] CPT-4: 45856 01/24/2018 06115 EST. PATIENT, LEVEL IV Diagnosis: Other malaise[ICD10: R53.81] Diagnosis: Fever, unspecified[ICD10: R50.9] Mady Butcher MD, [facility] CPT-4: 73177 12/08/2017 ([id number]) 23643 EST. PATIENT, LEVEL III Diagnosis: Essential (primary) hypertension[ICD10: I10] Lesley Butcher MD, [facility] CPT-4: 45992 10/27/2017 ([id number]) 92633 EST. PATIENT, LEVEL III Diagnosis: Benign prostatic hyperplasia with lower urinary tract symptoms[ICD10: N40.1] Diagnosis: Dysphagia, pharyngeal phase[ICD10: R13.13] Lesley Butcher MD, [facility] CPT-4: 07212 09/29/2017 ([id number]) 79496 EST. PATIENT, LEVEL IV Diagnosis: Essential (primary) hypertension[ICD10: I10] Diagnosis: Major depressive disorder, recurrent, mild[ICD10: F33.0] Diagnosis: Sensorineural hearing loss, bilateral[ICD10: H90.3] Lesley Butcher MD, [facility] CPT-4: 50362 09/01/2017 ([id number]) 02199 EST. PATIENT, LEVEL IV Diagnosis: Essential (primary) hypertension[ICD10: I10] Diagnosis: Major depressive disorder, recurrent, mild[ICD10: F33.0] Diagnosis: Mixed hyperlipidemia[ICD10: E78.2] Lesley Butcher MD, [facility] CPT- 4: 52514 04/26/2017 ([id number]) 26403 EST. PATIENT, LEVEL IV Diagnosis: Essential (primary) hypertension[ICD10: I10] Diagnosis: Major depressive disorder, recurrent, mild[ICD10: F33.0] Diagnosis: Urge incontinence[ICD10: N39.41] Lesley Butcher MD, [facility] CPT-4: 50815 01/25/2017 ([id number]) 20639 EST. PATIENT, LEVEL IV Diagnosis: Essential (primary) hypertension[ICD10: I10] Diagnosis: Major depressive disorder, recurrent, mild[ICD10: F33.0] Diagnosis: Urge incontinence[ICD10: N39.41] Lesley Butcher MD [facility] CPT-4: 66412 10/26/2016 ([id number]) 51324 EST. PATIENT, LEVEL III Diagnosis: Essential (primary) hypertension[ICD10: I10] Diagnosis: Major depressive disorder, recurrent, mild[ICD10: F33.0] Diagnosis: Urge incontinence[ICD10: N39.41] Lesley Butcher MD, [facility] CPT-4: 91741 09/27/2016 ([id number]) 17197 EST. PATIENT, LEVEL IV Diagnosis: Essential (primary) hypertension[ICD10: I10] Diagnosis: Encounter for immunization[ICD10: Z23] Diagnosis: Laceration without foreign body of left forearm, initial encounter[ICD10: S51.812A] Diagnosis: Laceration without foreign body of right forearm, initial encounter[ICD10: S51.811A] Diagnosis: Major depressive disorder, recurrent, mild[ICD10: F33.0] Lesley Butcher MD, [facility] CPT-4: 22149 06/28/2016 ([id number]) 63293 EST. 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 CPT-4: 32400 04/27/2016 ([id number]) 64498 EST. 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 CPT- 4: 00313 02/17/2016 ([id number]) 45613 EST. 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 CPT-4: 99804 01/20/2016 26408 EST. 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 CPT-4: 13827 01/06/2016 22169 EST. PATIENT, LEVEL IV Diagnosis: Weakness[ICD10: R53.1] Diagnosis: Gout, unspecified[ICD10: M10.9] Diagnosis: Hypotension, unspecified[ICD10: I95.9] Lesley Butcher MD, [facility] CPT-4: 77862 12/16/2015 ([id number]) Patient admitted to the hospital from clinic (NO CHARGE) Diagnosis: Hypoxemia[ICD10: R09.02] Diagnosis: Weakness[ICD10: R53.1] Diagnosis: Dyspnea, unspecified[ICD10: R06.00] Mady Butcher MD, [facility] CPT- 4: 48932P 11/27/2015 ([id number]) 48052 EST. PATIENT, LEVEL III Diagnosis: Essential (primary) hypertension[ICD10: I10] Diagnosis: Gastro-esophageal reflux disease without esophagitis[ICD10: K21.9] Lesley Butcher MD, [facility] CPT-4: 21482 07/30/2015 ([id number]) 44037 EST. PATIENT, LEVEL III Diagnosis: ESSENTIAL HYPERTENSION[ICD9: 401.9] Merline Rose [facility] CPT-4: 72804 06/09/2015 ([id number]) 33235 EST. PATIENT, LEVEL III Diagnosis: ESSENTIAL HYPERTENSION[ICD9: 401.9] Lesley Butcher MD, [facility] CPT- 4: 78069 04/29/2015 ([id number]) OFFICE/OUTPATIENT VISIT NEW Diagnosis: ESSENTIAL HYPERTENSION[ICD9: 401.9] Diagnosis: DEPRESSIVE DISORDER NEC[ICD9: 311] Diagnosis: Enlarged prostate[ICD9: 600.00] Diagnosis: Nasal inflammation due to allergen[ICD9: 477.9] Lesley Butcher MD, [facility] CPT-4: 92639 02/19/2015 Plan of Care Planned Activity Notes [...] [facility] [...] at 96% 12/13/2018 Appointment: Lesley Butcher WPtel: [address] [place], [place] [phone] (15 min) Moderate 12/13/2018 Patient Education: Patient Medication Summary Completed 12/13/2018 Visit Plan: OCB-ywzagbe-ajlzjsoox of breath -patient reports worsening of chronic symptoms -will check EKG and cardiac enzymes to evaluate for acute changes -recommend patient follow up with his parking enforcement manager, Dr Sharyn vu -patient, and daughter verbalized understanding of plan. Generalized weakness-discussed PT referral after cleared by cardiology -patient's will call us when she wants to have it set up HTN-no change but monitor at home 11/27/2018 Appointment: Merline Rose WPtel: [phone] [phone] [place] (15 min) Moderate 11/27/2018 Patient Education: [...] sessions. 09/26/2018 Appointment: Lesley Butcher WPtel: [phone] [facility] [place] (15 min) Moderate 09/26/2018 Patient [...] surrogate. 08/10/2018 Appointment: Mady Dunne WPtel: [phone] [facility] [facility] - Annual Wellness Visit 08/10/2018 Patient [...] at home. 07/26/2018 Appointment: Lesley Butcher WPtel: [facility] (15 min) Moderate 07/26/2018 Patient Education: [...] his dexamethasone. 06/12/2018 Appointment: Lesley Butcher WPtel: [address] [place], [place] [phone] (15 min) Moderate 06/12/2018 Patient Education: Patient Medication Summary Completed 06/12/2018 Visit Plan: Diverticulosis with recent GI bleeding - improved - continue with supportive care, avoid foods which cause any abdominal pain - monitor symptoms - call if any pain or bleeding recurs. Anemia - check labs today. Weakness - continue with increasing of activity. 05/10/2018 Appointment: Lesley Butcher WPtel: [address] [place], [place] [phone] (30 min) Complex 05/10/2018 Patient Education: Patient [...] implant. 03/27/2018 [phone] [facility] ([facility] min) Moderate 03/27/2018 Patient Education: [...] to medications. 01/24/2018 Appointment: Lesley Butcher WPtel[facility] (15 min) Moderate 01/24/2018 Patient Education: Patient Medication Summary Completed 01/24/2018 Visit Plan: Influenza - pt started on tamiflu - pt to start on anti-inflammatories, tylenol and monitor symptoms. Pt to call if not improving. Pt to alert any close contacts as to illness. 12/08/2017 [phone] ([facility] min) Complex 12/08/2017 Patient [...] home. 10/27/2017 Appointment: [facility]Ptel[facility] [phone] [facility] (15 min) Moderate 10/27/2017 Patient Education: Patient Medication Summary Completed 10/27/2017 Referral: External, Ordering Provider Referral Initiated 10/12/2017 Visit Plan: BPH - continue with dutasteride and flomax Dysphagia - referral to Dr. Kumar for EGD - question stricture - dysphagia intermittently - hx of stricture. 09/29/2017 Appointment: Lesley Butcher WPtel: [facility] (15 min) Moderate 09/29/2017 Patient Education: Patient Medication Summary Completed 09/29/2017 Care Plan: Referral Order SNOMED-CT : [id number] Pending 09/29/2017 Visit Plan: Hypertension - well [...] recommended patient to have an evaluation at [facility] to see if he has potential for cochlear implant. 09/01/2017 Appointment: [facility]Ptel[facility] [phone] [facility] [place] (15 min) Moderate 09/01/2017 Patient Education: Patient Medication Summary Completed 09/01/2017 Care Plan: Referral Order SNOMED-CT : [id number] Pending 09/01/2017 Visit Plan: Medicare Exam - [...] surrogate. 08/03/2017 App[facility]ment: [phone] [facility] [facility] - Welcome to Medicare visit 08/03/2017 [...] medications. 04/26/2017 Appointment: [facility]Ptel[facility] [phone] [facility] (15 min) Moderate 04/26/2017 Patient Education: [...] 10mg daily. 01/25/2017 Appointment: Lesley Butcher WPtel: [facility] (30 min) Complex 01/25/2017 Patient Education: [...] [place] 10/26/2016 Appointment: Lesley Butcher WPtel: [facility] (15 min) Moderate 10/26/2016 Patient [...] retention occur. 09/27/2016 Appointment: Lesley Butcher WPtel[facility] (15 min) Moderate 09/27/2016 Patient Education: [...] andrea 06/28/2016 Appointment: [facility]Ptel[facility] [phone] [facility] [place] (15 min) Moderate 06/28/2016 Patient [...] 1 month 02/17/2016 Appointment: Merline Rose WPtel: [address] [place], [place] [phone] (30 min) Complex 02/17/2016 Patient Education: Patient [...] Completed 12/16/2015 Appointment: [facility]Ptel[facility] [phone] [facility] (15 min) Moderate 12/04/2015 Appointment: [facility]Ptel[facility] [phone] [facility] (15 min) Moderate 12/02/2015 Visit Plan: [...] THE PHARMACY 07/30/2015 Appointment: Lesley Butcher WPtel: [phone] [facility] (15 min) Moderate 07/30/2015 Patient Education: [...] at home. 04/29/2015 Appointment: GuadalupeKati brary WPtel: [phone] [facility] (15 min) Moderate 04/29/2015 Patient Education: [...] External, Ordering Provider Referral Appointment Requested Referral: [facility] 09/12 Referral info faxed Appointment Requested Referral: [facility] Referral Appointment Requested Instructions Comment . Hypertension [...] planned injection in back and call the auto parker about a biopsy of the lesion on [...] ILLNESS. CHECK CARDIAC ENYZMES AND EKG . GPM-cljqihe-ygqufuhop of breath -patient reports worsening of chronic symptoms -will check EKG and cardiac enzymes to evaluate for acute changes -recommend patient follow up with his parking enforcement manager, Dr Stokes -patient, and daughter verbalized [...] recommended patient to have an evaluation at [facility] to see if he has potential for cochlear implant. . BPH - continue with dutasteride and flomax Dysphagia - referral to Dr. Kuamr for EGD - question stricture - dysphagia [...] [facility] [...]
[2019-03-23 20:31] VITALS: BP 149/91
--- OUTSIDE RECORDS SUMMARY | 2019-03-23 20:40 | XMS REPORT | Continuity of Care Document ---
Author Organization Unknown Address Unknown Allergies Active Description Code Type Severity Reaction Onset Reported/Identified Relationship to Patient Clinical Status Yes NKANo Known Allergies NKA Miscellaneous Allergy Unknown N/A 12/17/2006 Yes No Known Allergies No Known Allergies Drug Allergy Unknown N/A 11/29/2015 Yes iodine iodine Drug Allergy Unknown UNKNOWN 12/29/2016 Yes iodine iodine Drug Allergy Unknown UNKNOWN 12/29/2016 Yes iodine iodine Drug Allergy Moderate ITCHING 02/03/2018 Yes iodine iodine Drug Allergy Moderate ITCHING 02/03/2018 Yes amoxicillin [id number] Drug Allergy Severe RASH 12/26/2018 Yes clavulanic acid [id number] Drug Allergy Severe RASH 12/26/2018 Yes Iodinated Contrast- Oral and IV Dye [id number] Drug Allergy Unknown N/A 12/26/2018 Medications There is no data. Problems Date [...] Payan Ot 729.5 06/09/2015 FRANCISCO ORDONEZ, DOUG M Ot 793.7 06/09/2015 Ot 593.2 06/09/2015 Ot 599.72 06/09/2015 MADISON CARL TACO MAKER Ot 715.36 06/09/2015 MADISON CARL TACO MAKER Ot 717.3 06/09/2015 MADISON CARL TACO MAKER Ot 717.40 06/09/2015 MADISON CARL TACO MAKER Ot 726.60 06/09/2015 MADISON CARL TACO MAKER Ot 727.43 06/11/2015 FRANCISCO ORDONEZ, DOUG Payan Ot 729.5 06/11/2015 FRANCISCO ORDONEZ, DOUG Payan Ot 793.7 06/11/2015 Ot 593.2 06/11/2015 Ot 599.72 06/11/2015 MADISON CARL TACO MAKER Ot 715.36 06/11/2015 MADISON CARL TACO MAKER Ot 717.3 06/11/2015 MADISON CARL TACO MAKER Ot 717.40 06/11/2015 MADISON CARL TACO MAKER Ot 726.60 06/11/2015 MADISON CARL TACO MAKER Ot 727.43 06/11/2015 XOCHITL ORDONEZ, EMILEE P [...] XOCHITL ORDONEZ, EMILEE P Ot V57.1 06/17/2015 SIDDHARTHA MADISON D TACO MAKER Ot 715.36 06/17/2015 SIDDHARTHA MADISON D TACO MAKER Ot 717.3 06/17/2015 SIDDHARTHA MADISON Daniela TACO MAKER Ot 717.40 06/17/2015 SIDDHARTHA MADISON Daniela TACO MAKER Ot 726.60 06/17/2015 SIDDHARTHA MADISON Daniela TACO MAKER Ot 727.43 06/26/2015 SIDDHARTHA MADISON Daniela TACO MAKER Ot 715.36 06/26/2015 SIDDHARTHA MADISON Daniela TACO MAKER Ot 717.3 06/26/2015 SIDDHARTHA MADISON Daniela TACO MAKER Ot 717.40 06/26/2015 SIDDHARTHA MADISON D TACO MAKER Ot 726.60 06/26/2015 SIDDHARTHA MADISON D TACO MAKER Ot 727.43 11/27/2015 FRANCISCO ORDONEZ, DOUG Payan Ot 729.5 11/27/2015 FRANCISCO ORDONEZ, DOUG Payan Ot 793.7 11/27/2015 Ot 593.2 11/27/2015 Ot 599.72 11/27/2015 SIDDHARTHA MADISON D TACO MAKER Ot 715.36 11/27/2015 SIDDHARTHA MADISON Daniela TACO MAKER Ot 717.3 11/27/2015 SIDDHARTHA MADISON Daniela TACO MAKER Ot 717.40 11/27/2015 SIDDHARTHA MADISON Daniela TACO MAKER Ot 726.60 11/27/2015 SIDDHARTHA MADIOSN Daniela TACO MAKER Ot 727.43 11/27/2015 XOCHITL ORDONEZ, EMILEE P Ot 836.0 11/27/2015 XOCHITL ORDONEZ, EMILEE P Ot 836.1 11/27/2015 XOCHITL ORDONEZ, EMILEE P Ot E000.8 11/27/2015 XOCHITL ORDONEZ, EMILEE Pettit Ot E928.9 11/27/2015 XOCHITL ORDONEZ, EMILEE Pettit Ot V72.84 11/27/2015 XOCHITL ORDONEZ, EMILEE Pettit Ot V74.8 11/29/2015 NOVA ORDONEZ, DAPHNE Pollock Ot D50.0 IRON DEFICIENCY ANEMIA SECONDARY TO BLOO 11/29/2015 NOVA ORDONEZ, DAPHNE Pollock Ot I10 ESSENTIAL (PRIMARY) HYPERTENSION 11/29/2015 NOVA ORDONEZ, DAPHNE Pollock Ot 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.] CYST OF KIDNEY, ACQUIRED 01/04/2017 GARCIA KRAFT TOOL INSPECTOR Ot I10 ESSENTIAL (PRIMARY) HYPERTENSION 01/05/2017 GARCIA KRAFT TOOL INSPECTOR Ot I10 ESSENTIAL (PRIMARY) HYPERTENSION 01/05/2017 GARCIA KRAFT TOOL INSPECTOR Ot 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, 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 01/05/2017 GARCIA KRAFT TOOL INSPECTOR Ot I73.9 PERIPHERAL VASCULAR DISEASE, UNSPECIFIED 01/05/2017 GARCIA KRAFT TOOL INSPECTOR Ot I10 ESSENTIAL (PRIMARY) HYPERTENSION 01/05/2017 GARCIA KRAFT TOOL INSPECTOR Ot 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, 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 01/05/2017 GARCIA KRAFT TOOL INSPECTOR Ot I73.9 PERIPHERAL VASCULAR DISEASE, UNSPECIFIED 01/07/2017 LORENA MATA MD I Ot N28.1 CYST OF KIDNEY, ACQUIRED 01/07/2017 HOLLANDSHAI GIPSON BEAR-C Ot 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, 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 01/10/2017 GARCIA KRAFT TOOL INSPECTOR Ot I10 ESSENTIAL (PRIMARY) HYPERTENSION 01/10/2017 GARCIA KRAFT TOOL INSPECTOR Ot 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, 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 01/10/2017 GARCIA KRAFT TOOL INSPECTOR Ot I73.9 PERIPHERAL VASCULAR DISEASE, UNSPECIFIED 01/10/2017 HOLLANDSHAI GIPSON BEAR-C Ot 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, 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 01/26/2017 GARCIA KRAFT TOOL INSPECTOR Ot I10 ESSENTIAL (PRIMARY) HYPERTENSION 01/26/2017 GARCIA KRAFT TOOL INSPECTOR Ot 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, 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 01/26/2017 GARCIA KRAFT TOOL INSPECTOR Ot I73.9 PERIPHERAL VASCULAR DISEASE, UNSPECIFIED 01/28/2017 SKYLERSHAI Randall SIFUENTES-C Ot 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, 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 02/04/2017 SKYLER SHAI Randall SIFUENTES-C Ot 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, 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 03/21/2017 LORENA MATA MD I Ot N28.1 CYST OF KIDNEY, ACQUIRED 03/21/2017 SHAI HOLLAND-C Ot 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, 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 03/22/2017 KOURTNEY NANCE Ot Z01.812 ENCOUNTER FOR PREPROCEDURAL LABORATORY E 03/23/2017 SHAI HOLLAND-C Ot 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, 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 03/23/2017 SHAI HOLLAND-C Ot K57.30 DVRTCLOS OF LG INT W/O PERFORATION OR AB 03/23/2017 SHAI HOLLAND-C Ot K76.0 FATTY (CHANGE OF) LIVER, NOT ELSEWHERE C 04/12/2017 KOURTNEY NANCE Ot Z01.812 ENCOUNTER FOR PREPROCEDURAL LABORATORY E 04/20/2017 SHAI HOLLAND-C Ot 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, 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 04/20/2017 SHAI HOLLAND PA-C Ot K57.30 DVRTCLOS OF LG INT W/O PERFORATION OR AB 04/20/2017 SHAI HOLLAND-C Ot K76.0 FATTY (CHANGE OF) LIVER, NOT ELSEWHERE C 04/25/2017 SHAI HOLLAND PA-C Ot 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, 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 04/25/2017 SHAI HOLLAND PA-C Ot K57.30 DVRTCLOS OF LG INT W/O PERFORATION OR AB 04/25/2017 SHAI HOLLAND PA-C Ot K76.0 FATTY (CHANGE OF) LIVER, NOT ELSEWHERE C 10/20/2017 WALI SALAZAR DO Ot R13.10 DYSPHAGIA, UNSPECIFIED 10/20/2017 WALI SALAZAR DO Ot Z01.818 ENCOUNTER FOR OTHER PREPROCEDURAL EXAMIN 10/21/2017 WALI SALAZAR DO Ot R13.10 DYSPHAGIA, UNSPECIFIED 10/21/2017 WALI SALAZAR DO Ot Z01.818 ENCOUNTER FOR OTHER PREPROCEDURAL EXAMIN 10/25/2017 GARCIA KRAFT TOOL INSPECTOR Ot I10 ESSENTIAL (PRIMARY) HYPERTENSION 10/25/2017 GARCIA KRAFT TOOL INSPECTOR Ot 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, 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 10/25/2017 GARCIA KRAFT TOOL INSPECTOR Ot I73.9 PERIPHERAL VASCULAR DISEASE, UNSPECIFIED 10/25/2017 WALI SALAZAR DO Ot E78.5 HYPERLIPIDEMIA, UNSPECIFIED 10/25/2017 WALI SALAZAR DO Ot F32.9 MAJOR DEPRESSIVE DISORDER, SINGLE EPISOD 10/25/2017 WALI SALAZAR DO Ot F41.9 ANXIETY DISORDER, UNSPECIFIED 10/25/2017 WALI SALAZAR DO Ot G47.33 OBSTRUCTIVE SLEEP APNEA (ADULT) (PEDIATR 10/25/2017 WALI SALAZAR DO Ot I10 ESSENTIAL (PRIMARY) HYPERTENSION 10/25/2017 WALI SALAZAR DO Ot I25.10 ATHSCL HEART DISEASE OF [place] CORONARY 10/25/2017 WALI SALAZAR DO Ot K21.0 GASTRO-ESOPHAGEAL REFLUX DISEASE WITH ES 10/25/2017 WALI SALAZAR DO Ot K44.9 DIAPHRAGMATIC HERNIA WITHOUT OBSTRUCTION 10/25/2017 WALI SALAZAR DO Ot Z79.2 PRINTED CIRCUIT BOARD PANELS DEBURRER (CURRENT) USE OF ANTIBIOTICS 10/25/2017 WALI SALAZAR DO Ot Z79.899 OTHER PRINTED CIRCUIT BOARD PANELS DEBURRER (CURRENT) DRUG THERAPY 10/25/2017 SALAZAR DO, WALI D Ot Z95.5 PRESENCE OF CORONARY ANGIOPLASTY IMPLANT 10/27/2017 SALAZAR DO, WALI D Ot E78.5 HYPERLIPIDEMIA, UNSPECIFIED 10/27/2017 SALAZAR DO, WALI D Ot F32.9 MAJOR DEPRESSIVE DISORDER, SINGLE EPISOD 10/27/2017 SALAZAR DO, WALI D Ot F41.9 ANXIETY DISORDER, UNSPECIFIED 10/27/2017 SALAZAR DO, WALI D Ot G47.33 OBSTRUCTIVE SLEEP APNEA (ADULT) (PEDIATR 10/27/2017 SALAZAR DO, WALI D Ot I10 ESSENTIAL (PRIMARY) HYPERTENSION 10/27/2017 SALAZAR DO, WALI D Ot I25.10 ATHSCL HEART DISEASE OF [place] CORONARY 10/27/2017 SALAZAR DO, WALI D Ot K21.0 GASTRO-ESOPHAGEAL REFLUX DISEASE WITH ES 10/27/2017 SALAZAR DO, WALI D Ot K44.9 DIAPHRAGMATIC HERNIA WITHOUT OBSTRUCTION 10/27/2017 SALAZAR DO, WALI D Ot Z79.2 PRINTED CIRCUIT BOARD PANELS DEBURRER (CURRENT) USE OF ANTIBIOTICS 10/27/2017 SALAZAR DO, WALI D Ot Z79.899 OTHER PRINTED CIRCUIT BOARD PANELS DEBURRER (CURRENT) DRUG THERAPY 10/27/2017 SALAZAR DO, WALI D Ot Z95.5 PRESENCE OF CORONARY ANGIOPLASTY IMPLANT 10/28/2017 MARTIN DO, WALI D Ot E78.5 HYPERLIPIDEMIA, UNSPECIFIED 10/28/2017 SALAZAR DO, WALI D Ot F32.9 MAJOR DEPRESSIVE DISORDER, SINGLE EPISOD 10/28/2017 SALAZAR DO, WALI D Ot F41.9 ANXIETY DISORDER, UNSPECIFIED 10/28/2017 SALAZAR DO, WALI D Ot G47.33 OBSTRUCTIVE SLEEP APNEA (ADULT) (PEDIATR 10/28/2017 SALAZAR DO, WALI D Ot I10 ESSENTIAL (PRIMARY) HYPERTENSION 10/28/2017 SALAZAR DO, WALI D Ot I25.10 ATHSCL HEART DISEASE OF [place] CORONARY 10/28/2017 SALAZAR DO, WALI D Ot K21.0 GASTRO-ESOPHAGEAL REFLUX DISEASE WITH ES 10/28/2017 SALAZAR DO, WALI D Ot K44.9 DIAPHRAGMATIC HERNIA WITHOUT OBSTRUCTION 10/28/2017 SALAZAR DO, WALI D Ot Z79.2 PRINTED CIRCUIT BOARD PANELS DEBURRER (CURRENT) USE OF ANTIBIOTICS 10/28/2017 SALAZAR DO, WALI D Ot Z79.899 OTHER PRINTED CIRCUIT BOARD PANELS DEBURRER (CURRENT) DRUG THERAPY 10/28/2017 WALI SALAZAR DO Ot Z95.5 PRESENCE OF CORONARY ANGIOPLASTY IMPLANT 11/14/2017 TIERRA DE MD Ot H91.93 UNSPECIFIED HEARING LOSS, BILATERAL 11/14/2017 TIERRA DE MD Ot R93.8 ABNORMAL FINDINGS ON DIAGNOSTIC IMAGING 11/15/2017 GARCIA KRAFT TOOL INSPECTOR Ot I10 ESSENTIAL (PRIMARY) HYPERTENSION 11/15/2017 GARCIA KRAFT TOOL INSPECTOR Ot 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, 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 11/15/2017 GARCIA KRAFT TOOL INSPECTOR Ot I73.9 PERIPHERAL VASCULAR DISEASE, UNSPECIFIED 11/15/2017 TIERRA DE MD Ot H91.93 UNSPECIFIED HEARING LOSS, BILATERAL 11/15/2017 TIERRA DE MD Ot R93.8 ABNORMAL FINDINGS ON DIAGNOSTIC IMAGING 11/17/2017 TIERRA DE MD, Ot H91.93 UNSPECIFIED HEARING LOSS, BILATERAL 11/17/2017 TIERRA DE MD Ot 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, NONRUPTURED 11/17/2017 DAPHNE BUTCHER MD Ot I10 ESSENTIAL (PRIMARY) HYPERTENSION 11/22/2017 TIERRA DE MD Ot H91.93 UNSPECIFIED HEARING LOSS, BILATERAL 11/22/2017 TIERRA DE MD Ot 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, NONRUPTURED 12/02/2017 TIERRA DE MD, Ot H91.93 UNSPECIFIED HEARING LOSS, BILATERAL 12/02/2017 TIERRA DE MD Ot R93.8 ABNORMAL FINDINGS ON DIAGNOSTIC IMAGING 12/07/2017 TIERRA DE MD, Ot H91.93 UNSPECIFIED HEARING LOSS, BILATERAL 12/07/2017 TIERRA DE MD Ot R93.8 ABNORMAL FINDINGS ON DIAGNOSTIC IMAGING 12/08/2017 TIERRA DE MD, Ot H91.93 UNSPECIFIED HEARING LOSS, BILATERAL 12/08/2017 TIERRA DE MD Ot 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, NONRUPTURED 12/08/2017 DAPHNE BUTCHER MD Ot I10 ESSENTIAL (PRIMARY) HYPERTENSION 04/30/2018 Kirit Shahid MD D12.3 BENIGN NEOPLASM [...] Shahid MD I25.10 ATHSCL HEART DISEASE OF [place] CORONARY ARTERY W/O 04/30/2018 Kirit Shahid MD [...] GRAFT (REPLACEMENT 04/30/2018 Kirit Shahid MD 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CS/ANTIPLA 04/30/2018 Kirit Shahid MD 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 04/30/2018 Kirit Shahid MD Z90.49 ACQUIRED ABSENCE OF OTHER SPECIFIED PARTS OF DIGES 04/30/2018 Kirit Shahid MD Z91.041 RADIOGRAPHIC DYE ALLERGY STATUS 04/30/2018 Kirit Shahid MD Z95.5 PRESENCE OF CORONARY ANGIOPLASTY IMPLANT AND GRAFT 04/30/2018 Kirit Shahid MD Z96.21 COCHLEAR IMPLANT STATUS 10/24/2018 DAPHNE BUTCHER MD Ot H91.10 PRESBYCUSIS, UNSPECIFIED EAR 10/24/2018 DAPHNE BUTCHER MD Ot I10 ESSENTIAL (PRIMARY) HYPERTENSION 10/24/2018 NOVA MD, DAPHNE A Ot I25.10 ATHSCL HEART DISEASE OF [place] CORONARY 10/26/2018 NOVA ORDONEZ, DAPHNE Pollock Ot H91.10 PRESBYCUSIS, UNSPECIFIED EAR 10/26/2018 NOVA ORDONEZ, DAPHNE Pollock Ot I10 ESSENTIAL (PRIMARY) HYPERTENSION 10/26/2018 NOVA ORDONEZ, DAPHNE Pollock Ot I25.10 ATHSCL HEART DISEASE OF [place] CORONARY 11/10/2018 NOVA ORDONEZ, DAPHNE Pollock Ot H91.10 PRESBYCUSIS, UNSPECIFIED EAR 11/10/2018 NOVA ORDONEZ, DAPHNE Pollock Ot I10 ESSENTIAL (PRIMARY) HYPERTENSION 11/10/2018 NOVA ORDONEZ, DAPHNE Pollock Ot I25.10 ATHSCL HEART DISEASE OF [place] CORONARY 11/15/2018 NOVA ORDONEZ, DAPHNE Pollock Ot H91.10 PRESBYCUSIS, UNSPECIFIED EAR 11/15/2018 NOVA ORDONEZ, DAPHNE Pollock Ot I10 ESSENTIAL (PRIMARY) HYPERTENSION 11/15/2018 NOVA ORDONEZ, DAPHNE Pollock Ot I25.10 ATHSCL HEART DISEASE OF [place] CORONARY 11/28/2018 KOURTNEY NANCE TACO MAKER Ot I25.10 ATHSCL HEART DISEASE OF [place] CORONARY 11/28/2018 KOURTNEY NANCE TACO MAKER Ot R06.02 SHORTNESS OF BREATH 11/28/2018 KOURTNEY NANCE TACO MAKER Ot R42 DIZZINESS AND GIDDINESS 12/19/2018 KOURTNEY NANCE TACO MAKER Ot I25.10 ATHSCL HEART DISEASE OF [place] CORONARY 12/19/2018 KOURTNEY NANCE TACO MAKER Ot R06.02 SHORTNESS OF BREATH 12/19/2018 KOURTNEY NANCE TACO MAKER Ot R42 DIZZINESS AND GIDDINESS 12/20/2018 NOVA ORDONEZ, DAPHNE Pollock Ot D64.9 ANEMIA, UNSPECIFIED 12/20/2018 NOVA ORDONEZ, DAPHNE Pollock Ot F32.9 MAJOR DEPRESSIVE DISORDER, SINGLE EPISOD 12/20/2018 NOVA ORDONEZ, DAPHNE Pollock Ot G47.30 SLEEP APNEA, UNSPECIFIED 12/20/2018 NOVA ORDONEZ, DAPHNE Pollock Ot I10 ESSENTIAL (PRIMARY) HYPERTENSION 12/20/2018 NOVA ORDONEZ, DAPHNE Pollock Ot I25.10 ATHSCL HEART DISEASE OF [place] CORONARY 12/20/2018 NOVA ORDONEZ, DAPHNE Pollock Ot 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, 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 12/20/2018 DAPHNE BUTCHER MD Ot K21.9 GASTRO-ESOPHAGEAL REFLUX DISEASE WITHOUT 12/20/2018 DAPHNE BUTCHER MD Ot K92.2 GASTROINTESTINAL HEMORRHAGE, UNSPECIFIED 12/20/2018 DAPHNE BUTCHER MD Ot Z79.02 [facility] (CURRENT) USE OF ANTITHROMBOTI 12/20/2018 DAPHNE BUTCHER MD Ot 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 12/20/2018 DAPHNE BUTCHER MD, Ot Z79.899 OTHER [facility] (CURRENT) DRUG THERAPY 12/20/2018 DAPHNE BUTCHER MD Ot Z95.5 PRESENCE OF CORONARY ANGIOPLASTY IMPLANT 12/20/2018 KOURTNEY NANCE Ot I25.10 ATHSCL HEART DISEASE OF [place] CORONARY 12/20/2018 KOURTNEY NANCE Ot R06.02 SHORTNESS OF BREATH 12/20/2018 KOURTNEY NANCE Ot R42 DIZZINESS AND GIDDINESS 12/20/2018 ESPERANZA ORDONEZ, LORENA Angelo Ot N28.1 CYST OF KIDNEY, ACQUIRED 12/20/2018 SHAI HOLLAND PA-C Ot 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, 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 12/20/2018 SHAI HOLLAND PA-C Ot 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, 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 12/20/2018 SHAI HOLLAND PA-C Ot K57.30 DVRTCLOS OF LG INT W/O PERFORATION OR AB 12/20/2018 SHAI HOLLAND PA-C Ot K76.0 FATTY (CHANGE OF) LIVER, NOT ELSEWHERE C 12/20/2018 KOURTNEY NANCE Ot Z01.812 ENCOUNTER FOR PREPROCEDURAL LABORATORY E 12/20/2018 TIERRA DE MD Ot H91.93 UNSPECIFIED HEARING LOSS, BILATERAL 12/20/2018 TIERRA DE MD Ot R93.8 ABNORMAL FINDINGS ON DIAGNOSTIC IMAGING 12/20/2018 TIERRA DE MD, Ot H91.93 UNSPECIFIED HEARING LOSS, BILATERAL 12/20/2018 TIERRA DE MD Ot 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, NONRUPTURED 12/20/2018 DAPHNE BUTCHER MD Ot I10 ESSENTIAL (PRIMARY) HYPERTENSION 12/20/2018 DAPHNE BUTCHER MD Ot H91.10 PRESBYCUSIS, UNSPECIFIED EAR 12/20/2018 DAPHNE BUTCHER MD Ot I10 ESSENTIAL (PRIMARY) HYPERTENSION 12/20/2018 DAPHNE BUTCHER MD Ot I25.10 ATHSCL HEART DISEASE OF [place] CORONARY 12/20/2018 KOURTNEY NANCEP Ot I25.10 ATHSCL HEART DISEASE OF [place] CORONARY 12/20/2018 KOURTNEY NANCEP Ot R06.02 SHORTNESS OF BREATH 12/20/2018 KOURTNEY NANCEP Ot R42 DIZZINESS AND GIDDINESS 12/20/2018 DAPHNE BUTCEHR MD Ot D64.9 ANEMIA, UNSPECIFIED 12/20/2018 DAPHNE BUTCHER MD Ot F32.9 MAJOR DEPRESSIVE DISORDER, SINGLE EPISOD 12/20/2018 DAPHNE BUTCHER MD Ot G47.30 SLEEP APNEA, UNSPECIFIED 12/20/2018 DAPHNE BUTCHER MD Ot I10 ESSENTIAL (PRIMARY) HYPERTENSION 12/20/2018 DAPHNE BUTCHER MD Ot I25.10 ATHSCL HEART DISEASE OF [place] CORONARY 12/20/2018 DAPHNE BUTCHER MD Ot 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, 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 12/20/2018 DAPHNE BUTCHER MD Ot K21.9 GASTRO-ESOPHAGEAL REFLUX DISEASE WITHOUT 12/20/2018 DAPHNE BUTCHER MD Ot K92.2 GASTROINTESTINAL HEMORRHAGE, UNSPECIFIED 12/20/2018 DAPHNE BUTCHER MD Ot Z79.02 [facility] (CURRENT) USE OF ANTITHROMBOTI 12/20/2018 DAPHNE BUTCHER MD Ot Z79.82 [facility] (CURRENT) USE OF ASPIRIN 12/20/2018 DAPHNE BUTCHER MD Ot Z79.899 OTHER PRINTED CIRCUIT BOARD PANELS DEBURRER (CURRENT) DRUG THERAPY 12/20/2018 DAPHNE BUTCHER MD Ot Z95.5 PRESENCE OF CORONARY ANGIOPLASTY IMPLANT 12/26/2018 ESPERANZA ORDONEZ, LORENA Angelo Ot N28.1 CYST OF KIDNEY, ACQUIRED 12/26/2018 SHAI HOLLAND PA-C Ot 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, 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 12/26/2018 GARCIA KRAFT APRN Ot I10 ESSENTIAL (PRIMARY) HYPERTENSION 12/26/2018 GARCIA KRAFT APRN Ot 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, 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 12/26/2018 GARCIA KRAFT APRN Ot I73.9 PERIPHERAL VASCULAR DISEASE, UNSPECIFIED 12/26/2018 SHAI HOLLAND PA-C Ot 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, 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 12/26/2018 SHAI HOLLAND PA-C Ot K57.30 DVRTCLOS OF LG INT W/O PERFORATION OR AB 12/26/2018 SHAI HOLLAND PA-C Ot K76.0 FATTY (CHANGE OF) LIVER, NOT ELSEWHERE C 12/26/2018 KOURTNEY NANCE Ot Z01.812 ENCOUNTER FOR PREPROCEDURAL LABORATORY E 12/26/2018 KENISHA ORDONEZ, TIERRA Ot H91.93 UNSPECIFIED HEARING LOSS, BILATERAL 12/26/2018 KENISHA ORDONEZ, TIERRA Ot R93.8 ABNORMAL FINDINGS ON DIAGNOSTIC IMAGING 12/26/2018 KENISHA ORDONEZ, TIERRA Christianson H91.93 UNSPECIFIED HEARING LOSS, BILATERAL 12/26/2018 KENISHA ORDONEZ, TIERRA Ot 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, NONRUPTURED 12/26/2018 NOVA ORDONEZ, DAPHNE Pollock Ot I10 ESSENTIAL (PRIMARY) HYPERTENSION 12/26/2018 NOVA ORDONEZ, DAPHNE Pollock Ot H91.10 PRESBYCUSIS, UNSPECIFIED EAR 12/26/2018 NOVA ORDONEZ, DAPHNE Pollock Ot I10 ESSENTIAL (PRIMARY) HYPERTENSION 12/26/2018 NOVA ORDONEZ, DAPHNE Pollock Ot I25.10 ATHSCL HEART DISEASE OF [place] CORONARY 12/26/2018 KOURTNEY NANCE Ot I25.10 ATHSCL HEART DISEASE OF [place] CORONARY 12/26/2018 KOURTNEY NANCE Ot R06.02 SHORTNESS OF BREATH 12/26/2018 KOURTNEY NANCE Ot R42 DIZZINESS AND GIDDINESS 12/26/2018 RAMÓN PRITCHARD MD Ot Z01.818 ENCOUNTER FOR OTHER PREPROCEDURAL EXAMIN 12/26/2018 RAMÓN PRITCHARD MD Ot Z01.818 ENCOUNTER FOR OTHER PREPROCEDURAL EXAMIN 12/26/2018 RAMÓN PRITCHARD MD Ot Z01.818 ENCOUNTER FOR OTHER PREPROCEDURAL EXAMIN 12/26/2018 RAMÓN PRITCHARD MD Ot Z01.818 ENCOUNTER FOR OTHER PREPROCEDURAL EXAMIN 12/27/2018 RAMÓN PRITCHARD MD Ot Z01.818 ENCOUNTER FOR OTHER PREPROCEDURAL EXAMIN 12/27/2018 RAMÓN PRITCHARD MD, Ot G47.30 SLEEP APNEA, UNSPECIFIED 12/27/2018 RAMÓN PRITCHARD MD, Ot H91.90 UNSPECIFIED HEARING LOSS, UNSPECIFIED EA 12/27/2018 RAMÓN PRITCHARD MD, Ot I10 ESSENTIAL (PRIMARY) HYPERTENSION 12/27/2018 RAMÓN PRITCHARD MD, Ot I25.10 ATHSCL HEART DISEASE OF [place] CORONARY 12/27/2018 RAMÓN PRITCHARD MD, Ot 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, 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 12/27/2018 RAMÓN PRITCHARD MD, Ot I73.9 PERIPHERAL VASCULAR DISEASE, UNSPECIFIED 12/27/2018 RAMÓN PRITCHARD MD, Ot K21.0 GASTRO-ESOPHAGEAL REFLUX DISEASE WITH ES 12/27/2018 RAMÓN PRITCHARD MD, Ot K29.50 UNSPECIFIED CHRONIC GASTRITIS WITHOUT BL 12/27/2018 RAMÓN PRITCHARD MD, Ot K44.9 DIAPHRAGMATIC HERNIA WITHOUT OBSTRUCTION 12/27/2018 RAMÓN PRITCHARD MD, Ot K57.30 DVRTCLOS OF LG INT W/O PERFORATION OR AB 12/27/2018 RAMÓN PRITCHARD MD Ot K62.5 HEMORRHAGE OF ANUS AND RECTUM 12/27/2018 RAMÓN PRITCHARD MD, Ot K64.1 SECOND DEGREE HEMORRHOIDS 12/27/2018 RAMÓN PRITCHARD MD, Ot 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 12/27/2018 RAMÓN PRITCHARD MD, Ot Z79.899 OTHER PRINTED CIRCUIT BOARD PANELS DEBURRER (CURRENT) DRUG THERAPY 12/27/2018 RAMÓN PRITCHARD MD, Ot Z87.19 PERSONAL HISTORY OF OTHER DISEASES OF TH 12/27/2018 RAMÓN PRITCHARD MD Ot Z95.5 PRESENCE OF CORONARY ANGIOPLASTY IMPLANT 12/29/2018 KOURTNEY NANCE Ot I25.10 ATHSCL HEART DISEASE OF [place] CORONARY 12/29/2018 KOURTNEY NANCE Ot R06.02 SHORTNESS OF BREATH 12/29/2018 KOURTNEY NANCE Ot R42 DIZZINESS AND GIDDINESS 01/01/2019 RAMÓN PRITCHARD MD, Ot G47.30 SLEEP APNEA, UNSPECIFIED 01/01/2019 RAMÓN PRITCHARD MD, Ot H91.90 UNSPECIFIED HEARING LOSS, UNSPECIFIED EA 01/01/2019 RAMÓN PRITCHARD MD, Ot I10 ESSENTIAL (PRIMARY) HYPERTENSION 01/01/2019 RAMÓN PRITCHARD MD, Ot I25.10 ATHSCL HEART DISEASE OF [place] CORONARY 01/01/2019 RAMÓN PRITCHARD MD, Ot 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, 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 01/01/2019 RAMÓN PRITCHARD MD, Ot I73.9 PERIPHERAL VASCULAR DISEASE, UNSPECIFIED 01/01/2019 RAMÓN PRITCHARD MD, Ot K21.0 GASTRO-ESOPHAGEAL REFLUX DISEASE WITH ES 01/01/2019 RAMÓN PRITCHARD MD, Ot K29.50 UNSPECIFIED CHRONIC GASTRITIS WITHOUT BL 01/01/2019 RAMÓN PRITCHARD MD, Ot K44.9 DIAPHRAGMATIC HERNIA WITHOUT OBSTRUCTION 01/01/2019 RAMÓN PRITCHARD MD, Ot K57.30 DVRTCLOS OF LG INT W/O PERFORATION OR AB 01/01/2019 RAMÓN PRITCHARD MD, Ot K62.5 HEMORRHAGE OF ANUS AND RECTUM 01/01/2019 RAMÓN PRITCHARD MD, Ot K64.1 SECOND DEGREE HEMORRHOIDS 01/01/2019 RAMÓN PRITCHARD MD, Ot 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 01/01/2019 RAMÓN PRITCHARD MD, Ot Z79.899 OTHER PRINTED CIRCUIT BOARD PANELS DEBURRER (CURRENT) DRUG THERAPY 01/01/2019 RAMÓN PRITCHARD MD, Ot Z87.19 PERSONAL HISTORY OF OTHER DISEASES OF TH 01/01/2019 RAMÓN PRITCHARD MD, Ot Z95.5 PRESENCE OF CORONARY ANGIOPLASTY IMPLANT 01/04/2019 EMILEE HESS MD Ot G47.33 OBSTRUCTIVE SLEEP APNEA (ADULT) (PEDIATR 01/09/2019 EMILEE HESS MD Ot G47.33 OBSTRUCTIVE SLEEP APNEA (ADULT) (PEDIATR 01/09/2019 EMILEE HESS MD Ot G47.33 OBSTRUCTIVE SLEEP APNEA (ADULT) (PEDIATR 01/10/2019 RAMÓN PRITCHARD MD, Ot G47.30 SLEEP APNEA, UNSPECIFIED 01/10/2019 RAMÓN PRITCHARD MD, Ot H91.90 UNSPECIFIED HEARING LOSS, UNSPECIFIED EA 01/10/2019 RAMÓN PRITCHARD MD, Ot I10 ESSENTIAL (PRIMARY) HYPERTENSION 01/10/2019 RAMÓN PRITCHARD MD, Ot I25.10 ATHSCL HEART DISEASE OF [place] CORONARY 01/10/2019 RAMÓN PRITCHARD MD, Ot 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, 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 01/10/2019 RAMÓN PRITCHARD MD, Ot I73.9 PERIPHERAL VASCULAR DISEASE, UNSPECIFIED 01/10/2019 RAMÓN PRITCHARD MD, Ot K21.0 GASTRO-ESOPHAGEAL REFLUX DISEASE WITH ES 01/10/2019 RAMÓN PRITCHARD MD, Ot K29.50 UNSPECIFIED CHRONIC GASTRITIS WITHOUT BL 01/10/2019 RAMÓN PRITCHARD MD, Ot K44.9 DIAPHRAGMATIC HERNIA WITHOUT OBSTRUCTION 01/10/2019 RAMÓN PRITCHARD MD, Ot K57.30 DVRTCLOS OF LG INT W/O PERFORATION OR AB 01/10/2019 RAMÓN PRITCHARD MD, Ot K62.5 HEMORRHAGE OF ANUS AND RECTUM 01/10/2019 RAMÓN PRITCHARD MD, Ot K64.1 SECOND DEGREE HEMORRHOIDS 01/10/2019 RAMÓN PRITCHARD MD, Ot Z79.82 [facility] (CURRENT) USE OF ASPIRIN 01/10/2019 RAMÓN PRITCHARD MD, Ot Z79.899 OTHER PRINTED CIRCUIT BOARD PANELS DEBURRER (CURRENT) DRUG THERAPY 01/10/2019 RAMÓN PRITCHARD MD, Ot Z87.19 PERSONAL HISTORY OF OTHER DISEASES OF TH 01/10/2019 RAMÓN PRITCHARD MD, Ot Z95.5 PRESENCE OF CORONARY ANGIOPLASTY IMPLANT 01/24/2019 DESHAWN ORDONEZ, EMILEE Pettit Ot G47.33 OBSTRUCTIVE SLEEP APNEA (ADULT) (PEDIATR 01/25/2019 EMILEE HESS MD, Ot G47.33 OBSTRUCTIVE SLEEP APNEA (ADULT) (PEDIATR 01/25/2019 EMILEE HESS MD Ot R06.83 SNORING 01/26/2019 EMILEE HESS MD Ot G47.33 OBSTRUCTIVE SLEEP APNEA (ADULT) (PEDIATR 01/26/2019 EMILEE HESS MD Ot R06.83 SNORING 02/07/2019 MARIIA BANEGAS MD Ot A08.4 VIRAL INTESTINAL INFECTION, UNSPECIFIED 02/07/2019 MARIIA BANEGAS MD Ot G47.30 SLEEP APNEA, UNSPECIFIED 02/07/2019 MARIIA BANEGAS MD Ot I10 ESSENTIAL (PRIMARY) HYPERTENSION 02/07/2019 MARIIA BANEGAS MD Ot R11.2 NAUSEA WITH VOMITING, UNSPECIFIED 02/07/2019 MARIIA BANEGAS MD Ot R41.0 DISORIENTATION, UNSPECIFIED 02/07/2019 MARIIA BANEGAS MD Ot 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 02/07/2019 MARIIA BANEGAS MD Ot Z82.49 FAMILY HX OF ISCHEM HEART DIS AND OTH DI 02/07/2019 MARIIA BANEGAS MD Ot Z87.19 PERSONAL HISTORY OF OTHER DISEASES OF TH 02/07/2019 MARIIA BANEGAS MD Ot Z87.442 PERSONAL HISTORY OF URINARY CALCULI 02/07/2019 MARIIA BANEGAS MD Ot Z88.0 ALLERGY STATUS TO PENICILLIN 02/07/2019 MARIIA BANEGAS MD J Ot Z88.8 ALLERGY STATUS TO OTH DRUG/MEDS/BIOL SUB 02/07/2019 MARIIA BANEGAS MD Ot Z91.041 RADIOGRAPHIC DYE ALLERGY STATUS 02/07/2019 MARIIA BANEGAS MD Ot Z95.5 PRESENCE OF CORONARY ANGIOPLASTY IMPLANT 02/07/2019 MARIIA BANEGAS MD Ot Z98.890 OTHER SPECIFIED POSTPROCEDURAL STATES 02/09/2019 MARIIA BANEGAS MD Ot A08.4 VIRAL INTESTINAL INFECTION, UNSPECIFIED 02/09/2019 MARIIA BANEGAS MD Ot G47.30 SLEEP APNEA, UNSPECIFIED 02/09/2019 MARIIA BANEGAS MD Ot I10 ESSENTIAL (PRIMARY) HYPERTENSION 02/09/2019 MARIIA BANEGAS MD Ot R11.2 NAUSEA WITH VOMITING, UNSPECIFIED 02/09/2019 MARIIA BANEGAS MD Ot R41.0 DISORIENTATION, UNSPECIFIED 02/09/2019 MARIIA BANEGAS MD Ot 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 02/09/2019 MARIIA BANEGAS MD Ot Z82.49 FAMILY HX OF ISCHEM HEART DIS AND OTH DI 02/09/2019 MARIIA BANEGAS MD Ot Z87.19 PERSONAL HISTORY OF OTHER DISEASES OF 02/09/2019 MARIIA BANEGAS MD Ot Z87.442 PERSONAL HISTORY OF URINARY CALCULI 02/09/2019 MARIIA BANEGAS MD Ot Z88.0 ALLERGY STATUS TO PENICILLIN 02/09/2019 MARIIA BANEGAS MD Ot Z88.8 ALLERGY STATUS TO OTH DRUG/MEDS/BIOL SUB 02/09/2019 MARIIA BANEGAS MD Ot Z91.041 RADIOGRAPHIC DYE ALLERGY STATUS 02/09/2019 MARIIA BANEGAS MD Ot Z95.5 PRESENCE OF CORONARY ANGIOPLASTY IMPLANT 02/09/2019 BASSAM ORDONEZ, MARIIA Broussard Ot Z98.890 OTHER SPECIFIED POSTPROCEDURAL STATES 02/12/2019 KOURTNEY NANCE Ot R07.81 PLEURODYNIA 02/12/2019 KOURTNEY NANCE Ot W19.XXXA UNSPECIFIED FALL, INITIAL ENCOUNTER 02/15/2019 KOURTNEY NANCE Ot R07.81 PLEURODYNIA 02/15/2019 KOURTNEY NANCE Ot W19.XXXA UNSPECIFIED FALL, INITIAL ENCOUNTER 02/20/2019 ESPERANZA ORDONEZ, LORENA Angelo Ot N28.1 CYST OF KIDNEY, ACQUIRED 02/20/2019 SHAI HOLLAND PA-C Ot 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, 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 02/20/2019 SHAI HOLLAND PA-C Ot 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, 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 02/20/2019 SHAI HOLLAND PA-C Ot K57.30 DVRTCLOS OF LG INT W/O PERFORATION OR AB 02/20/2019 SHAI HOLLAND PA-C Ot K76.0 FATTY (CHANGE OF) LIVER, NOT ELSEWHERE C 02/20/2019 KOURTNEY NANCE Ot Z01.812 ENCOUNTER FOR PREPROCEDURAL LABORATORY E 02/20/2019 TIERRA DE MD Ot H91.93 UNSPECIFIED HEARING LOSS, BILATERAL 02/20/2019 TIERRA DE MD Ot R93.8 ABNORMAL FINDINGS ON DIAGNOSTIC IMAGING 02/20/2019 TIERRA DE MD Ot H91.93 UNSPECIFIED HEARING LOSS, BILATERAL 02/20/2019 TIERRA DE MD Ot 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, NONRUPTURED 02/20/2019 DAPHNE BUTCHER MD Ot I10 ESSENTIAL (PRIMARY) HYPERTENSION 02/20/2019 DAPHNE BUTCHER MD Ot H91.10 PRESBYCUSIS, UNSPECIFIED EAR 02/20/2019 DAPHNE BUTCHER MD Ot I10 ESSENTIAL (PRIMARY) HYPERTENSION 02/20/2019 DAPHNE BUTCHER MD Ot I25.10 ATHSCL HEART DISEASE OF [place] CORONARY 02/20/2019 KOURTNEY NANCE Ot I25.10 ATHSCL HEART DISEASE OF [place] CORONARY 02/20/2019 NANCE, KOURTNEY M TACO MAKER Ot R06.02 SHORTNESS OF BREATH 02/20/2019 GOYO KOURTNEY M TACO MAKER Ot R42 DIZZINESS AND GIDDINESS 02/20/2019 GOYO KOURTNEY Ora TACO MAKER Ot R07.81 PLEURODYNIA 02/20/2019 KOURTNEY NANCE TACO MAKER Ot W19.XXXA UNSPECIFIED FALL, INITIAL ENCOUNTER 03/09/2019 KOURTNEY NANCEP Ot 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, 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 03/14/2019 ESPERANZA ORDONEZ, LORENA I Ot N28.1 CYST OF KIDNEY, ACQUIRED 03/14/2019 SHAI HOLLAND PA-C Ot 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, 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 03/14/2019 SHAI HOLLAND PA-C Ot 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, 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 03/14/2019 SHAI HOLLAND PA-C Ot K57.30 DVRTCLOS OF LG INT W/O PERFORATION OR AB 03/14/2019 SHAI HOLLAND PA-C Ot K76.0 FATTY (CHANGE OF) LIVER, NOT ELSEWHERE C 03/14/2019 GOYO KOURTNEY Ora ARMAS Ot Z01.812 ENCOUNTER FOR PREPROCEDURAL LABORATORY E 03/14/2019 KENISHA ORDONEZ, TIERRA Ot H91.93 UNSPECIFIED HEARING LOSS, BILATERAL 03/14/2019 TIERRA DE MD Ot R93.8 ABNORMAL FINDINGS ON DIAGNOSTIC IMAGING 03/14/2019 TIERRA DE MD Ot H91.93 UNSPECIFIED HEARING LOSS, BILATERAL 03/14/2019 TIERRA DE MD Ot 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, NONRUPTURED 03/14/2019 DAPHNE BUTCHER MD Ot I10 ESSENTIAL (PRIMARY) HYPERTENSION 03/14/2019 DAPHNE BUTCHER MD Ot H91.10 PRESBYCUSIS, UNSPECIFIED EAR 03/14/2019 DAPHNE BUTCHER MD Ot I10 ESSENTIAL (PRIMARY) HYPERTENSION 03/14/2019 DAPHNE BUTCHER MD Ot I25.10 ATHSCL HEART DISEASE OF [place] CORONARY 03/14/2019 KOURTNEY NANCE Ot I25.10 ATHSCL HEART DISEASE OF [place] CORONARY 03/14/2019 KOURTNEY NANCEP Ot R06.02 SHORTNESS OF BREATH 03/14/2019 NANCE, KOURTNEY M TACO MAKER Ot R42 DIZZINESS AND GIDDINESS 03/14/2019 KOURTNEY NANCE TACO MAKER Ot R07.81 PLEURODYNIA 03/14/2019 KOURTNEY NANCE TACO MAKER Ot W19.XXXA UNSPECIFIED FALL, INITIAL ENCOUNTER 03/14/2019 KOURTNEY NANCE TACO MAKER Ot 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, 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 03/16/2019 KOURTNEY NANCEP Ot 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, 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 03/16/2019 KOURTNEY NANCE TACO MAKER Ot Z98.890 OTHER SPECIFIED POSTPROCEDURAL STATES Procedures Code Description Performed By Performed On [id number] INSPECTION OF UPPER INTESTINAL TRACT, ALIREZA Root MD, Erick Suarez 04/30/2018 [id number] INSPECTION OF LOWER INTESTINAL TRACT, ALIREZA Root MD, Erick Suarez 04/30/2018 [id number] ASSISTANCE WITH RESPIRATORY VENTILATION, 24-96 HRS Kleber ORDONEZ, Kirit Pollock 04/30/2018 Results Test Result Range CBC W/DIFF - 11/17/15 12:00 EOSINOPHIL # 0.2 k/cumm 0.1-0.5 EOSINOPHIL % 3 % 2-4 GRANULOCYTE # 3.4 k/cumm 2.0-9.0 GRANULOCYTE % 57 % 50-75 LYMPHOCYTE # 1.9 k/cumm 1.0-4.0 LYMPHOCYTE % 32 % 20-30 MEAN CELL HGB 29.5 pg 27.0-33.0 MEAN CELL HGB CONCENTRATION 34.4 g/dL 32.0-37.0 MEAN CELL VOLUME 85.6 fl 80.0-100.0 MONOCYTE # 0.5 k/cumm 0.1-1.0 MONOCYTE % 8 % 4-6 RED BLOOD CELL 4.99 m/cumm 4.00-6.00 RED CELL DISTRIBUTION WIDTH 14.4 % 11.0-15.6 WHITE BLOOD CELL 6.0 k/cumm 5.0-10.0 HEMOGLOBIN 14.7 gm/dL 14.0-18.0 HEMATOCRIT 42.7 % 40.0-54.0 PLATELET COUNT 217 k/cumm 150-450 PLT FUNCTION, P2Y12 (PLAVIX) - 11/17/15 12:00 PLATELET COUNT 217 k/cumm 150-450 PLT FUNCTION P2Y12 172 PRU 194-418 METABOLIC PANEL, BASIC - 11/17/15 12:00 POTASSIUM 3.9 mmol/L 3.5-5.3 EST GFR (MDRD) 59 mL/min > 59 ANION GAP 13 mmol/L 5-15 GLUCOSE 92 mg/dL 70-99 CALCIUM 9.0 mg/dL 8.5-10.1 BLOOD UREA NITROGEN 15 mg/dL 7-20 CREATININE 1.2 mg/dL 0.7-1.3 SODIUM 140 mmol/L 135-148 CHLORIDE 105 mmol/L 98-110 CARBON DIOXIDE 22 mmol/L 21-32 HEMOGLOBIN - 11/17/15 18:26 MEAN CELL VOLUME 86.8 fl 80.0-100.0 HEMOGLOBIN 12.4 gm/dL 14.0-18.0 HEMATOCRIT - 11/17/15 18:26 MEAN CELL VOLUME 87.0 fl 80.0-100.0 HEMATOCRIT 36.2 % 40.0-54.0 URINALYSIS, NO REFLEX CULTURE - 11/17/15 22:45 UA LEUKOCYTE ESTERASE DIPSTICK TRACE NEGATIVE UA NITRITE DIPSTICK NEGATIVE NEGATIVE UA PROTEIN DIPSTICK TRACE NEGATIVE UA GLUCOSE DIPSTICK NEGATIVE NEGATIVE UA KETONE DIPSTICK 1+ NEGATIVE UA UROBILINOGEN DIPSTICK NORMAL NORMAL UA BILIRUBIN DIPSTICK NEGATIVE NEGATIVE UA BLOOD DIPSTICK 4+ NEGATIVE UA SPECIFIC GRAVITY 1.015 1.015-1.025 UR PH 5.0 5.0-7.0 UA MICROSCOPIC - 11/17/15 22:45 UA BACTERIA 1+ NEGATIVE UA MUCUS 1+ NEG TO 1+ UA RBC 50-100 rbc/hpf 0 - 3 UA VOLUME FOR EXAM 12.0 mL (12mL STD) UA WBC 2-5 wbc/hpf 0 - 5 CBC - 11/18/15 05:03 MEAN CELL HGB 29.3 pg 27.0-33.0 MEAN CELL HGB CONCENTRATION 32.9 g/dL 32.0-37.0 MEAN CELL VOLUME 89.2 fl 80.0-100.0 RED BLOOD CELL 3.34 m/cumm 4.00-6.00 RED CELL DISTRIBUTION WIDTH 14.4 % 11.0-15.6 WHITE BLOOD CELL 9.9 k/cumm 5.0-10.0 HEMOGLOBIN 9.8 gm/dL 14.0-18.0 HEMATOCRIT 29.8 % 40.0-54.0 PLATELET COUNT 179 k/cumm 150-450 METABOLIC PANEL, BASIC - 11/18/15 05:03 POTASSIUM 4.3 mmol/L 3.5-5.3 EST GFR (MDRD) 59 mL/min > 59 ANION GAP 12 mmol/L 5-15 EST CrCl (CG) > 60 mL/min > 59 GLUCOSE 114 mg/dL 70-99 CALCIUM 8.2 mg/dL 8.5-10.1 BLOOD UREA NITROGEN 17 mg/dL 7-20 CREATININE 1.2 mg/dL 0.7-1.3 SODIUM 141 mmol/L 135-148 CHLORIDE 106 mmol/L 98-110 CARBON DIOXIDE 23 mmol/L 21-32 CBC - 11/19/15 06:59 MEAN CELL HGB 29.8 pg 27.0-33.0 MEAN CELL HGB CONCENTRATION 33.3 g/dL 32.0-37.0 MEAN CELL VOLUME 89.3 fl 80.0-100.0 RED BLOOD CELL 3.19 m/cumm 4.00-6.00 RED CELL DISTRIBUTION WIDTH 14.3 % 11.0-15.6 WHITE BLOOD CELL 11.3 k/cumm 5.0-10.0 HEMOGLOBIN 9.5 gm/dL 14.0-18.0 HEMATOCRIT 28.5 % 40.0-54.0 PLATELET COUNT 176 k/cumm 150-450 ARTERIAL BLOOD GAS - 11/29/15 15:44 COMMENT 2L NC ABG BASE EXCESS -2.8 meq/L -3.0-3.0 ABG DEVICE NC ABG FIO2 0.28 % ABG BICARBONATE 19.6 meq/L 23.0-28.0 ABG VENT MODE 2L ABG PCO2 27 mm Hg 34-45 ABG PH 7.48 7.35-7.45 ABG PO2 89 mm Hg 75-100 ABG PATIENT POSITION SF ABG O2 SATURATION 97 % 93-100 ABG SITE RT BRACH MRSA SURVEILLANCE SCREEN - 11/29/15 15:53 Microbiology CBC - 11/30/15 04:36 MEAN CELL HGB 28.9 pg 27.0-33.0 MEAN CELL HGB CONCENTRATION 32.7 g/dL 32.0-37.0 MEAN CELL VOLUME 88.2 fl 80.0-100.0 RED BLOOD CELL 3.57 m/cumm 4.00-6.00 RED CELL DISTRIBUTION WIDTH 15.0 % 11.0-15.6 WHITE BLOOD CELL 7.9 k/cumm 5.0-10.0 HEMOGLOBIN 10.3 gm/dL 14.0-18.0 HEMATOCRIT 31.5 % 40.0-54.0 PLATELET COUNT 466 k/cumm 150-450 METABOLIC PANEL, BASIC - 11/30/15 04:36 POTASSIUM 3.7 mmol/L 3.5-5.3 EST GFR (MDRD) 49 mL/min > 59 ANION GAP 11 mmol/L 5-15 EST CrCl (CG) 51 mL/min > 59 GLUCOSE 139 mg/dL 70-99 CALCIUM 8.7 mg/dL 8.5-10.1 BLOOD UREA NITROGEN 21 mg/dL 7-20 CREATININE 1.4 mg/dL 0.7-1.3 SODIUM 140 mmol/L 135-148 CHLORIDE 109 mmol/L 98-110 CARBON DIOXIDE 20 mmol/L 21-32 PHOSPHORUS - 11/30/15 04:36 PHOSPHORUS 3.0 mg/dL 2.5-4.9 CREATINE KINASE (CK/CPK) - 11/30/15 04:36 CREATINE KINASE (CK/CPK) 53 Units/L < 309 MAGNESIUM - 11/30/15 04:36 MAGNESIUM 1.9 mg/dL 1.8-2.4 C REACTIVE PROTEIN - 11/30/15 04:36 C REACTIVE PROTEIN 6.0 mg/dL 0.00-0.90 SED RATE WESTERGREN - 11/30/15 04:36 SED RATE WESTERGREN 86 mm/hr 0-20 VENOUS BLOOD GAS - 11/30/15 04:41 VBG BASE EXCESS -2.1 mEq/L -3.0-3.0 VBG BICARBONATE 21.0 meq/L 21-30 VBG PCO2 31 mm Hg 41-51 VBG PH 7.46 7.33-7.43 VBG PO2 60 mm Hg 35-40 VBG O2 SATURATION 90 % 65-75 COMMENT 2L BLOOD CULTURE - 11/30/15 10:37 Microbiology BLOOD CULTURE - 11/30/15 10:48 Microbiology CBC - 12/01/15 04:39 MEAN CELL HGB 28.9 pg 27.0-33.0 MEAN CELL HGB CONCENTRATION 32.9 g/dL 32.0-37.0 MEAN CELL VOLUME 87.8 fl 80.0-100.0 RED BLOOD CELL 3.53 m/cumm 4.00-6.00 RED CELL DISTRIBUTION WIDTH 14.9 % 11.0-15.6 WHITE BLOOD CELL 8.9 k/cumm 5.0-10.0 HEMOGLOBIN 10.2 gm/dL 14.0-18.0 HEMATOCRIT 31.0 % 40.0-54.0 PLATELET COUNT 478 k/cumm 150-450 METABOLIC PANEL, BASIC - 12/01/15 04:39 POTASSIUM 3.8 mmol/L 3.5-5.3 EST GFR (MDRD) 53 mL/min > 59 ANION GAP 11 mmol/L 5-15 EST CrCl (CG) 55 mL/min > 59 GLUCOSE 95 mg/dL 70-99 CALCIUM 8.8 mg/dL 8.5-10.1 BLOOD UREA NITROGEN 27 mg/dL 7-20 CREATININE 1.3 mg/dL 0.7-1.3 SODIUM 140 mmol/L 135-148 CHLORIDE 108 mmol/L 98-110 CARBON DIOXIDE 21 mmol/L 21-32 PHOSPHORUS - 12/01/15 04:39 PHOSPHORUS 3.1 mg/dL 2.5-4.9 MAGNESIUM - 12/01/15 04:39 MAGNESIUM 1.8 mg/dL 1.8-2.4 FERRITIN - 12/01/15 04:39 FERRITIN 175 ng/mL 26-388 IRON W/ BINDING CAPACITY - 12/01/15 04:39 IRON SATURATION 13 % SAT 11-46 IRON BINDING CAPACITY, TOTAL 229 mcg/dL 250-450 IRON 30 mcg/dL 35-150 CBC - 05/03/16 06:55 MEAN CELL HGB 28.8 pg 27.0-33.0 MEAN CELL HGB CONCENTRATION 33.9 g/dL 32.0-37.0 MEAN CELL VOLUME 84.9 fl 80.0-100.0 RED BLOOD CELL 4.65 m/cumm 4.00-6.00 RED CELL DISTRIBUTION WIDTH 15.2 % 11.0-15.6 WHITE BLOOD CELL 5.7 k/cumm 5.0-10.0 HEMOGLOBIN 13.4 gm/dL 14.0-18.0 HEMATOCRIT 39.5 % 40.0-54.0 PLATELET COUNT 180 k/cumm 150-450 PROTHROMBIN TIME WITH INR - 05/03/16 06:55 INTERNATIONAL NORMAL RATIO 0.9 0.9-1.1 PROTHROMBIN TIME 10.9 sec 10.0-12.9 METABOLIC PANEL, BASIC - 05/03/16 06:55 POTASSIUM 4.1 mmol/L 3.5-5.3 EST GFR (MDRD) 53 mL/min > 59 ANION GAP 9 mmol/L 5-15 EST CrCl (CG) 55 mL/min > 59 GLUCOSE 103 mg/dL 70-99 CALCIUM 9.1 mg/dL 8.5-10.1 BLOOD UREA NITROGEN 19 mg/dL 7-20 CREATININE 1.3 mg/dL 0.7-1.3 SODIUM 139 mmol/L 135-148 CHLORIDE 105 mmol/L 98-110 CARBON DIOXIDE 25 mmol/L 21-32 Complete blood count (CBC) with automated white blood cell (WBC) differential - 01/04/17 09:40 Blood leukocytes automated count (number/volume) 6.3 10*3/uL 4.3-11.0 Blood erythrocytes automated count (number/volume) 4.70 10*6/uL 4.35-5.85 Venous blood hemoglobin measurement (mass/volume) 14.0 g/dL 13.3-17.7 Blood hematocrit (volume fraction) 41 % 40-54 Automated erythrocyte mean corpuscular volume 87 [foz_us] 80-99 Automated erythrocyte mean corpuscular hemoglobin (mass per erythrocyte) 30 pg 25-34 Automated erythrocyte mean corpuscular hemoglobin concentration measurement (mass/volume) 34 g/dL 32-36 Automated erythrocyte distribution width ratio 14.9 % 10.0- 14.5 Automated blood platelet count (count/volume) 201 10*3/uL 130-400 Automated blood platelet mean volume measurement 10.1 [foz_us] 7.4-10.4 Automated blood neutrophils/100 leukocytes 61 % 42-75 Automated blood lymphocytes/100 leukocytes 29 % 12-44 Blood monocytes/100 leukocytes 7 % 0-12 Automated blood eosinophils/100 leukocytes 3 % 0-10 Automated blood basophils/100 leukocytes 0 % 0-10 Blood neutrophils automated count (number/volume) 3.8 10*3 1.8-7.8 Blood lymphocytes automated count (number/volume) 1.8 10*3 1.0-4.0 Blood monocytes automated count (number/volume) 0.5 10*3 0.0- 1.0 Automated eosinophil count 0.2 10*3/uL 0.0-0.3 Automated blood basophil count (count/volume) 0.0 10*3/uL 0.0-0.1 Comprehensive metabolic panel - 01/04/17 09:40 Serum or plasma sodium measurement (moles/volume) 140 mmol/L 135-145 Serum or plasma potassium measurement (moles/volume) 3.9 mmol/L 3.6-5.0 Serum or plasma chloride measurement (moles/volume) 107 mmol/L 98-107 Carbon dioxide 23 mmol/L 21-32 Serum or plasma anion gap determination (moles/volume) 10 mmol/L 5-14 Serum or plasma urea nitrogen measurement (mass/volume) 18 mg/dL 7-18 Serum or plasma creatinine measurement (mass/volume) 1.26 mg/dL 0.60-1.30 Serum or plasma urea nitrogen/creatinine mass ratio 14 NRG Serum or plasma creatinine measurement with calculation of estimated glomerular filtration rate 55 NRG Serum or plasma glucose measurement (mass/volume) 100 mg/dL 70-105 Serum or plasma calcium measurement (mass/volume) 9.0 mg/dL 8.5-10.1 Serum or plasma total bilirubin measurement (mass/volume) 0.8 mg/dL 0.1-1.0 Serum or plasma alkaline phosphatase measurement (enzymatic activity/volume) 82 U/L 40-136 Serum or plasma aspartate aminotransferase measurement (enzymatic activity/volume) 22 U/L 5-34 Serum or plasma alanine aminotransferase measurement (enzymatic activity/volume) 22 U/L 0-55 Serum or plasma protein measurement (mass/volume) 6.9 g/dL 6.4-8.2 Serum or plasma albumin measurement (mass/volume) 3.9 g/dL 3.2-4.5 THYROID STIMULATING HORMONE - 01/04/17 09:40 THYROID STIMULATING HORMONE 1.80 u[iU]/mL 0.35-4.94 Serum or plasma testosterone measurement (mass/volume) - 01/04/17 09:40 Testosterone [mass or moles/volume] in serum or plasma 196 % 241-827 [id number] - 03/22/17 08:05 Serum or plasma urea nitrogen measurement (mass/volume) 18 mg/dL 7-18 Serum or plasma creatinine measurement (mass/volume) 1.21 mg/dL 0.60-1.30 Serum or plasma urea nitrogen/creatinine mass ratio 15 NRG Serum or plasma creatinine measurement with calculation of estimated glomerular filtration rate 58 NRG [id number] - 11/16/17 10:09 Serum or plasma urea nitrogen measurement (mass/volume) 15 mg/dL 7-18 Serum or plasma creatinine measurement (mass/volume) 1.23 mg/dL 0.60-1.30 Serum or plasma urea nitrogen/creatinine mass ratio 12 NRG Serum or plasma creatinine measurement with calculation of estimated glomerular filtration rate 57 NRG CBC W/DIFF - 02/03/18 10:50 BASOPHIL # 0.0 k/cumm 0.0-0.2 BASOPHIL % 0.3 % 0-1 EOSINOPHIL # 0.1 k/cumm 0.1-0.5 EOSINOPHIL % 1.9 % 2-4 GRANULOCYTE # 4.0 k/cumm 2.0-9.0 GRANULOCYTE % 59.1 % 50-75 LYMPHOCYTE # 2.1 k/cumm 1.0-4.0 LYMPHOCYTE % 30.7 % 20-30 MEAN CELL HGB 30.7 pg 27.0-33.0 MEAN CELL HGB CONCENTRATION 34.6 g/dL 32.0-37.0 MEAN CELL VOLUME 88.8 fl 80.0-100.0 MONOCYTE # 0.5 k/cumm 0.1-1.0 MONOCYTE % 7.3 % 4-6 MEAN PLATELET VOLUME 9.8 fl 8.5-10.9 RED BLOOD CELL 4.56 m/cumm 4.00-6.00 RED CELL DISTRIBUTION WIDTH 14.4 % 11.0-15.6 WHITE BLOOD CELL 6.7 k/cumm 5.0-10.0 HEMOGLOBIN 14.0 gm/dL 14.0-18.0 HEMATOCRIT 40.5 % 40.0-54.0 PLATELET COUNT 197 k/cumm 150-400 IMMATURE GRANULOCYTE % 0.7 % 0.0-0.6 NRBC % 0.0 /100 WBC 0.0-0.0 IMMATURE GRANULOCYTE # 0.05 k/cumm 0.00-0.09 PROTHROMBIN TIME WITH INR - 02/03/18 10:50 INTERNATIONAL NORMAL RATIO 1.0 0.9-1.1 PROTHROMBIN TIME 11.6 sec 10.0-12.8 METABOLIC PANEL, BASIC - 02/03/18 10:50 POTASSIUM 4.0 mmol/L 3.5-5.3 EST GFR (MDRD) 53 mL/min > 59 ANION GAP 5 mmol/L 5-15 EST CrCl (CG) 56 mL/min > 59 GLUCOSE 93 mg/dL 70-99 CALCIUM 9.0 mg/dL 8.5-10.1 BLOOD UREA NITROGEN 19 mg/dL 7-20 CREATININE 1.3 mg/dL 0.7-1.3 SODIUM 140 mmol/L 135-148 CHLORIDE 107 mmol/L 98-110 CARBON DIOXIDE 28 mmol/L LIPID PANEL - 02/03/18 10:50 CHOLESTEROL/HDL RATIO 3.7 < 5.0 LDL CHOLESTEROL 87 mg/dL < 100 VLDL CHOLESTEROL 16 mg/dL < 30 TRIGLYCERIDES 80 mg/dL < 150 CHOLESTEROL 141 mg/dL < 200 HDL CHOLESTEROL 38 mg/dL > 39 METABOLIC PANEL, BASIC - 02/04/18 12:26 POTASSIUM 3.5 mmol/L 3.5-5.3 EST GFR (MDRD) 53 mL/min > 59 ANION GAP 10 mmol/L 5-15 EST CrCl (CG) 56 mL/min > 59 GLUCOSE 96 mg/dL 70-99 CALCIUM 9.1 mg/dL 8.5-10.1 BLOOD UREA NITROGEN 19 mg/dL 7-20 CREATININE 1.3 mg/dL 0.7-1.3 SODIUM 143 mmol/L 135-148 CHLORIDE 107 mmol/L 98-110 CARBON DIOXIDE 26 mmol/L CBC W/DIFF - 05/01/18 00:10 BASOPHIL # 0.0 k/cumm 0.0-0.2 BASOPHIL % 0.2 % 0-1 EOSINOPHIL # 0.0 k/cumm 0.1-0.5 EOSINOPHIL % 0.1 % 2-4 GRANULOCYTE # 15.1 k/cumm 2.0-9.0 GRANULOCYTE % 81.0 % 50-75 LYMPHOCYTE # 2.3 k/cumm 1.0-4.0 LYMPHOCYTE % 12.4 % 20-30 MEAN CELL HGB 30.9 pg 27.0-33.0 MEAN CELL HGB CONCENTRATION 34.2 g/dL 32.0-37.0 MEAN CELL VOLUME 90.4 fl 80.0-100.0 MONOCYTE # 1.1 k/cumm 0.1-1.0 MONOCYTE % 5.7 % 4-6 MEAN PLATELET VOLUME 10.3 fl 8.5-10.9 RED BLOOD CELL 3.85 m/cumm 4.00-6.00 RED CELL DISTRIBUTION WIDTH 13.8 % 11.0-15.6 WHITE BLOOD CELL 18.7 k/cumm 5.0-10.0 HEMOGLOBIN 11.9 gm/dL 14.0-18.0 HEMATOCRIT 34.8 % 40.0-54.0 NRBC % 0.0 /100 WBC 0.0-0.0 PLATELET COUNT 277 k/cumm 150-400 IMMATURE GRANULOCYTE % 0.6 % 0.0-0.6 IMMATURE GRANULOCYTE # 0.12 k/cumm 0.00-0.09 PROTHROMBIN TIME WITH INR - 05/01/18 00:53 INTERNATIONAL NORMAL RATIO 1.1 0.9-1.1 PROTHROMBIN TIME 12.3 sec 10.0-12.8 METABOLIC PANEL, COMPREHN - 05/01/18 00:53 POTASSIUM 4.5 mmol/L 3.5-5.3 EST GFR (MDRD) 49 mL/min > 59 ANION GAP 17 mmol/L 5-15 EST CrCl (CG) 50 mL/min > 59 GLUCOSE 179 mg/dL 70-99 CALCIUM 8.6 mg/dL 8.5-10.1 BLOOD UREA NITROGEN 24 mg/dL 7-20 CREATININE 1.4 mg/dL 0.7-1.3 SODIUM 142 mmol/L 135-148 CHLORIDE 106 mmol/L 98-110 AST/SGOT 22 Units/L 10-37 ALT/SGPT 33 Units/L < 66 CARBON DIOXIDE 19 mmol/L 21-32 TOTAL PROTEIN 6.6 gm/dL 6.4-8.2 ALBUMIN 3.4 gm/dL 3.4-5.0 BILI TOTAL 1.2 mg/dL 0.0-1.0 ALKALINE PHOSPHATASE TOTAL 67 IU/L 45-117 CBC - 05/01/18 06:00 MEAN CELL HGB 31.1 pg 27.0-33.0 MEAN CELL HGB CONCENTRATION 34.9 g/dL 32.0-37.0 MEAN CELL VOLUME 89.2 fl 80.0-100.0 MEAN PLATELET VOLUME 9.9 fl 8.5-10.9 RED BLOOD CELL 3.34 m/cumm 4.00-6.00 RED CELL DISTRIBUTION WIDTH 13.9 % 11.0-15.6 WHITE BLOOD CELL 15.6 k/cumm 5.0-10.0 HEMOGLOBIN 10.4 gm/dL 14.0-18.0 HEMATOCRIT 29.8 % 40.0-54.0 NRBC % 0.0 /100 WBC 0.0-0.0 PLATELET COUNT 160 k/cumm 150-400 CBC W/DIFF - 05/01/18 14:21 BASOPHIL # 0.0 k/cumm 0.0-0.2 BASOPHIL % 0.2 % 0-1 EOSINOPHIL # 0.0 k/cumm 0.1-0.5 EOSINOPHIL % 0.1 % 2-4 GRANULOCYTE # 10.7 k/cumm 2.0-9.0 GRANULOCYTE % 79.2 % 50-75 LYMPHOCYTE # 2.0 k/cumm 1.0-4.0 LYMPHOCYTE % 14.7 % 20-30 MEAN CELL HGB 30.9 pg 27.0-33.0 MEAN CELL HGB CONCENTRATION 33.8 g/dL 32.0-37.0 MEAN CELL VOLUME 91.2 fl 80.0-100.0 MONOCYTE # 0.7 k/cumm 0.1-1.0 MONOCYTE % 5.3 % 4-6 MEAN PLATELET VOLUME 10.1 fl 8.5-10.9 RED BLOOD CELL 2.85 m/cumm 4.00-6.00 RED CELL DISTRIBUTION WIDTH 14.0 % 11.0-15.6 WHITE BLOOD CELL 13.5 k/cumm 5.0-10.0 HEMOGLOBIN 8.8 gm/dL 14.0-18.0 HEMATOCRIT 26.0 % 40.0-54.0 NRBC % 0.0 /100 WBC 0.0-0.0 PLATELET COUNT 158 k/cumm 150-400 IMMATURE GRANULOCYTE % 0.5 % 0.0-0.6 IMMATURE GRANULOCYTE # 0.07 k/cumm 0.00-0.09 GLUCOSE (POC) - 05/01/18 16:33 GLUCOSE (POC) 92 mg/dL 70-99 HEMOGLOBIN - 05/01/18 19:53 MEAN CELL VOLUME 92.0 fl 80.0-100.0 HEMOGLOBIN 9.0 gm/dL 14.0-18.0 GLUCOSE (POC) - 05/01/18 21:22 GLUCOSE (POC) 119 mg/dL 70-99 CBC W/DIFF - 05/02/18 03:17 BASOPHIL # 0.0 k/cumm 0.0-0.2 BASOPHIL % 0.1 % 0-1 EOSINOPHIL # 0.0 k/cumm 0.1-0.5 EOSINOPHIL % 0.0 % 2-4 GRANULOCYTE # 9.4 k/cumm 2.0-9.0 GRANULOCYTE % 91.5 % 50-75 LYMPHOCYTE # 0.6 k/cumm 1.0-4.0 LYMPHOCYTE % 6.0 % 20-30 MEAN CELL HGB 31.2 pg 27.0-33.0 MEAN CELL HGB CONCENTRATION 34.4 g/dL 32.0-37.0 MEAN CELL VOLUME 90.7 fl 80.0-100.0 MONOCYTE # 0.2 k/cumm 0.1-1.0 MONOCYTE % 1.7 % 4-6 MEAN PLATELET VOLUME 10.1 fl 8.5-10.9 RED BLOOD CELL 3.01 m/cumm 4.00-6.00 RED CELL DISTRIBUTION WIDTH 13.9 % 11.0-15.6 WHITE BLOOD CELL 10.3 k/cumm 5.0-10.0 HEMOGLOBIN 9.4 gm/dL 14.0-18.0 HEMATOCRIT 27.3 % 40.0-54.0 NRBC % 0.0 /100 WBC 0.0-0.0 PLATELET COUNT 157 k/cumm 150-400 IMMATURE GRANULOCYTE % 0.7 % 0.0-0.6 IMMATURE GRANULOCYTE # 0.07 k/cumm 0.00-0.09 METABOLIC PANEL, COMPREHN - 05/02/18 03:17 POTASSIUM 4.4 mmol/L 3.5-5.3 EST GFR (MDRD) 53 mL/min > 59 ANION GAP 9 mmol/L 5-15 EST CrCl (CG) 54 mL/min > 59 GLUCOSE 139 mg/dL 70-99 CALCIUM 8.2 mg/dL 8.5-10.1 BLOOD UREA NITROGEN 22 mg/dL 7-20 CREATININE 1.3 mg/dL 0.7-1.3 SODIUM 139 mmol/L 135-148 CHLORIDE 108 mmol/L 98-110 AST/SGOT 24 Units/L 10-37 ALT/SGPT 28 Units/L < 66 CARBON DIOXIDE 22 mmol/L 21-32 TOTAL PROTEIN 5.6 gm/dL 6.4-8.2 ALBUMIN 2.8 gm/dL 3.4-5.0 BILI TOTAL 1.2 mg/dL 0.0-1.0 ALKALINE PHOSPHATASE TOTAL 50 IU/L 45-117 GLUCOSE (POC) - 05/02/18 11:35 GLUCOSE (POC) 100 mg/dL 70-99 GLUCOSE (POC) - 05/02/18 16:14 GLUCOSE (POC) 90 mg/dL 70-99 CBC - 05/02/18 16:14 MEAN CELL HGB 31.1 pg 27.0-33.0 MEAN CELL HGB CONCENTRATION 33.9 g/dL 32.0-37.0 MEAN CELL VOLUME 91.9 fl 80.0-100.0 MEAN PLATELET VOLUME 10.5 fl 8.5-10.9 RED BLOOD CELL 2.73 m/cumm 4.00-6.00 RED CELL DISTRIBUTION WIDTH 13.9 % 11.0-15.6 WHITE BLOOD CELL 8.2 k/cumm 5.0-10.0 HEMOGLOBIN 8.5 gm/dL 14.0-18.0 HEMATOCRIT 25.1 % 40.0-54.0 NRBC % 0.0 /100 WBC 0.0-0.0 PLATELET COUNT 155 k/cumm 150-400 CBC W/DIFF - 05/03/18 04:08 BASOPHIL # 0.0 k/cumm 0.0-0.2 BASOPHIL % 0.3 % 0-1 EOSINOPHIL # 0.2 k/cumm 0.1-0.5 EOSINOPHIL % 2.4 % 2-4 GRANULOCYTE # 4.3 k/cumm 2.0-9.0 GRANULOCYTE % 64.3 % 50-75 LYMPHOCYTE # 1.8 k/cumm 1.0-4.0 LYMPHOCYTE % 26.5 % 20-30 MEAN CELL HGB 30.7 pg 27.0-33.0 MEAN CELL HGB CONCENTRATION 34.2 g/dL 32.0-37.0 MEAN CELL VOLUME 89.9 fl 80.0-100.0 MONOCYTE # 0.4 k/cumm 0.1-1.0 MONOCYTE % 5.7 % 4-6 MEAN PLATELET VOLUME 10.2 fl 8.5-10.9 RED BLOOD CELL 2.67 m/cumm 4.00-6.00 RED CELL DISTRIBUTION WIDTH 13.8 % 11.0-15.6 WHITE BLOOD CELL 6.6 k/cumm 5.0-10.0 HEMOGLOBIN 8.2 gm/dL 14.0-18.0 HEMATOCRIT 24.0 % 40.0-54.0 NRBC % 0.0 /100 WBC 0.0-0.0 PLATELET COUNT 152 k/cumm 150-400 IMMATURE GRANULOCYTE % 0.8 % 0.0-0.6 IMMATURE GRANULOCYTE # 0.05 k/cumm 0.00-0.09 METABOLIC PANEL, BASIC - 05/03/18 04:08 POTASSIUM 3.7 mmol/L 3.5-5.3 EST GFR (MDRD) > 60 mL/min > 59 ANION GAP 10 mmol/L 5-15 EST CrCl (CG) > 60 mL/min > 59 GLUCOSE 92 mg/dL 70-99 CALCIUM 8.1 mg/dL 8.5-10.1 BLOOD UREA NITROGEN 17 mg/dL 7-20 CREATININE 1.1 mg/dL 0.7-1.3 SODIUM 140 mmol/L 135-148 CHLORIDE 108 mmol/L 98-110 CARBON DIOXIDE 22 mmol/L 21-32 PHOSPHORUS - 05/03/18 04:08 PHOSPHORUS 2.5 mg/dL 2.5-4.9 MAGNESIUM - 05/03/18 04:08 MAGNESIUM 1.5 mg/dL 1.8-2.4 HGB HCT - 05/03/18 14:30 MEAN CELL VOLUME 90.9 fl 80.0-100.0 HEMOGLOBIN 8.4 gm/dL 14.0-18.0 HEMATOCRIT 25.1 % 40.0-54.0 RENAL FUNCTION PANEL - 05/03/18 14:30 POTASSIUM 3.5 mmol/L 3.5-5.3 EST GFR (MDRD) 58 mL/min > 59 ANION GAP 11 mmol/L 5-15 EST CrCl (CG) 60 mL/min > 59 GLUCOSE 90 mg/dL 70-99 CALCIUM 8.2 mg/dL 8.5-10.1 BLOOD UREA NITROGEN 14 mg/dL 7-20 CREATININE 1.2 mg/dL 0.7-1.3 SODIUM 141 mmol/L 135-148 CHLORIDE 107 mmol/L 98-110 CARBON DIOXIDE 23 mmol/L 21-32 ALBUMIN 2.8 gm/dL 3.4-5.0 PHOSPHORUS 3.1 mg/dL 2.5-4.9 MAGNESIUM - 05/03/18 14:30 MAGNESIUM 1.9 mg/dL 1.8-2.4 CBC W/DIFF - 05/04/18 03:44 BASOPHIL # 0.0 k/cumm 0.0-0.2 BASOPHIL % 0.2 % 0-1 EOSINOPHIL # 0.2 k/cumm 0.1-0.5 EOSINOPHIL % 2.6 % 2-4 GRANULOCYTE # 4.0 k/cumm 2.0-9.0 GRANULOCYTE % 64.9 % 50-75 LYMPHOCYTE # 1.5 k/cumm 1.0-4.0 LYMPHOCYTE % 24.1 % 20-30 MEAN CELL HGB 31.3 pg 27.0-33.0 MEAN CELL HGB CONCENTRATION 34.9 g/dL 32.0-37.0 MEAN CELL VOLUME 89.8 fl 80.0-100.0 MONOCYTE # 0.4 k/cumm 0.1-1.0 MONOCYTE % 7.2 % 4-6 MEAN PLATELET VOLUME 9.8 fl 8.5-10.9 RED BLOOD CELL 2.65 m/cumm 4.00-6.00 RED CELL DISTRIBUTION WIDTH 13.7 % 11.0-15.6 WHITE BLOOD CELL 6.1 k/cumm 5.0-10.0 HEMOGLOBIN 8.3 gm/dL 14.0-18.0 HEMATOCRIT 23.8 % 40.0-54.0 NRBC % 0.0 /100 WBC 0.0-0.0 PLATELET COUNT 171 k/cumm 150-400 IMMATURE GRANULOCYTE % 1.0 % 0.0-0.6 IMMATURE GRANULOCYTE # 0.06 k/cumm 0.00-0.09 METABOLIC PANEL, BASIC - 05/04/18 03:44 POTASSIUM 3.3 mmol/L 3.5-5.3 EST GFR (MDRD) > 60 mL/min > 59 ANION GAP 9 mmol/L 5-15 EST CrCl (CG) > 60 mL/min > 59 GLUCOSE 95 mg/dL 70-99 CALCIUM 8.3 mg/dL 8.5-10.1 BLOOD UREA NITROGEN 11 mg/dL 7-20 CREATININE 1.1 mg/dL 0.7-1.3 SODIUM 140 mmol/L 135-148 CHLORIDE 108 mmol/L 98-110 CARBON DIOXIDE 23 mmol/L 21-32 PHOSPHORUS - 05/04/18 03:44 PHOSPHORUS 3.5 mg/dL 2.5-4.9 MAGNESIUM - 05/04/18 03:44 MAGNESIUM 1.7 mg/dL 1.8-2.4 CBC W/DIFF - 05/05/18 06:00 BASOPHIL # 0.0 k/cumm 0.0-0.2 BASOPHIL % 0.3 % 0-1 EOSINOPHIL # 0.2 k/cumm 0.1-0.5 EOSINOPHIL % 2.5 % 2-4 GRANULOCYTE # 3.8 k/cumm 2.0-9.0 GRANULOCYTE % 63.4 % 50-75 LYMPHOCYTE # 1.6 k/cumm 1.0-4.0 LYMPHOCYTE % 26.2 % 20-30 MEAN CELL HGB 30.3 pg 27.0-33.0 MEAN CELL HGB CONCENTRATION 33.7 g/dL 32.0-37.0 MEAN CELL VOLUME 89.8 fl 80.0-100.0 MONOCYTE # 0.4 k/cumm 0.1-1.0 MONOCYTE % 6.6 % 4-6 MEAN PLATELET VOLUME 9.5 fl 8.5-10.9 RED BLOOD CELL 2.94 m/cumm 4.00-6.00 RED CELL DISTRIBUTION WIDTH 13.9 % 11.0-15.6 WHITE BLOOD CELL 6.0 k/cumm 5.0-10.0 HEMOGLOBIN 8.9 gm/dL 14.0-18.0 HEMATOCRIT 26.4 % 40.0-54.0 NRBC % 0.0 /100 WBC 0.0-0.0 PLATELET COUNT 231 k/cumm 150-400 IMMATURE GRANULOCYTE % 1.0 % 0.0-0.6 IMMATURE GRANULOCYTE # 0.06 k/cumm 0.00-0.09 METABOLIC PANEL, BASIC - 05/05/18 06:00 POTASSIUM 3.7 mmol/L 3.5-5.3 EST GFR (MDRD) > 60 mL/min > 59 ANION GAP 9 mmol/L 5-15 EST CrCl (CG) > 60 mL/min > 59 GLUCOSE 101 mg/dL 70-99 CALCIUM 8.6 mg/dL 8.5-10.1 BLOOD UREA NITROGEN 9 mg/dL 7-20 CREATININE 1.1 mg/dL 0.7-1.3 SODIUM 142 mmol/L 135-148 CHLORIDE 110 mmol/L 98-110 CARBON DIOXIDE 23 mmol/L 21-32 MAGNESIUM - 05/05/18 06:00 MAGNESIUM 2.1 mg/dL 1.8-2.4 Complete blood count (CBC) with automated white blood cell (WBC) differential - 11/27/18 14:23 Blood leukocytes automated count (number/volume) 7.5 10*3/uL 4.3-11.0 Blood erythrocytes automated count (number/volume) 4.81 10*6/uL 4.35-5.85 Venous blood hemoglobin measurement (mass/volume) 14.9 g/dL 13.3-17.7 Blood hematocrit (volume fraction) 42 % 40-54 Automated erythrocyte mean corpuscular volume 88 [foz_us] 80-99 Automated erythrocyte mean corpuscular hemoglobin (mass per erythrocyte) 31 pg 25-34 Automated erythrocyte mean corpuscular hemoglobin concentration measurement (mass/volume) 35 g/dL 32-36 Automated erythrocyte distribution width ratio 14.7 % 10.0- 14.5 Automated blood platelet count (count/volume) 238 10*3/uL 130-400 Automated blood platelet mean volume measurement 9.9 [foz_us] 7.4-10.4 Automated blood neutrophils/100 leukocytes 61 % 42-75 Automated blood lymphocytes/100 leukocytes 28 % 12-44 Blood monocytes/100 leukocytes 8 % 0-12 Automated blood eosinophils/100 leukocytes 3 % 0-10 Automated blood basophils/100 leukocytes 0 % 0-10 Blood neutrophils automated count (number/volume) 4.6 10*3 1.8-7.8 Blood lymphocytes automated count (number/volume) 2.1 10*3 1.0-4.0 Blood monocytes automated count (number/volume) 0.6 10*3 0.0- 1.0 Automated eosinophil count 0.2 10*3/uL 0.0-0.3 Automated blood basophil count (count/volume) 0.0 10*3/uL 0.0-0.1 Comprehensive metabolic panel - 11/27/18 14:23 Serum or plasma sodium measurement (moles/volume) 141 mmol/L 135-145 Serum or plasma potassium measurement (moles/volume) 3.5 mmol/L 3.6-5.0 Serum or plasma chloride measurement (moles/volume) 109 mmol/L 98-107 Carbon dioxide 20 mmol/L 21-32 Serum or plasma anion gap determination (moles/volume) 12 mmol/L 5-14 Serum or plasma urea nitrogen measurement (mass/volume) 15 mg/dL 7-18 Serum or plasma creatinine measurement (mass/volume) 1.10 mg/dL 0.60-1.30 Serum or plasma urea nitrogen/creatinine mass ratio 14 NRG Serum or plasma creatinine measurement with calculation of estimated glomerular filtration rate > NRG Serum or plasma glucose measurement (mass/volume) 117 mg/dL 70-105 Serum or plasma calcium measurement (mass/volume) 9.5 mg/dL 8.5-10.1 Serum or plasma total bilirubin measurement (mass/volume) 1.4 mg/dL 0.1-1.0 Serum or plasma alkaline phosphatase measurement (enzymatic activity/volume) 78 U/L 40-136 Serum or plasma aspartate aminotransferase measurement (enzymatic activity/volume) 21 U/L 5-34 Serum or plasma alanine aminotransferase measurement (enzymatic activity/volume) 20 U/L 0-55 Serum or plasma protein measurement (mass/volume) 7.0 g/dL 6.4-8.2 Serum or plasma albumin measurement (mass/volume) 4.1 g/dL 3.2-4.5 CALCIUM CORRECTED 9.4 mg/dL 8.5-10.1 Serum or plasma creatine kinase measurement (enzymatic activity/volume) - 11/27/18 14:23 Serum or plasma creatine kinase measurement (enzymatic activity/volume) 92 U/L 30-200 Serum or plasma troponin i.cardiac measurement (mass/volume) - 11/27/18 14:23 Serum or plasma troponin i.cardiac measurement (mass/volume) < ng/mL <0.028 Serum or plasma thyrotropin measurement by detection limit <=0.05 miu/l (units/volume) - 11/27/18 14:23 Serum or plasma thyrotropin measurement by detection limit <=0.05 miu/l (units/volume) 0.98 u[iU]/mL 0.35-4.94 Complete blood count (CBC) with automated white blood cell (WBC) differential - 12/19/18 15:26 Blood leukocytes automated count (number/volume) 6.2 10*3/uL 4.3-11.0 Blood erythrocytes automated count (number/volume) 4.33 10*6/uL 4.35-5.85 Venous blood hemoglobin measurement (mass/volume) 13.4 g/dL 13.3-17.7 Blood hematocrit (volume fraction) 39 % 40-54 Automated erythrocyte mean corpuscular volume 89 [foz_us] 80-99 Automated erythrocyte mean corpuscular hemoglobin (mass per erythrocyte) 31 pg 25-34 Automated erythrocyte mean corpuscular hemoglobin concentration measurement (mass/volume) 35 g/dL 32-36 Automated erythrocyte distribution width ratio 13.9 % 10.0- 14.5 Automated blood platelet count (count/volume) 234 10*3/uL 130-400 Automated blood platelet mean volume measurement 10.5 [foz_us] 7.4-10.4 Automated blood neutrophils/100 leukocytes 53 % 42-75 Automated blood lymphocytes/100 leukocytes 35 % 12-44 Blood monocytes/100 leukocytes 8 % 0-12 Automated blood eosinophils/100 leukocytes 4 % 0-10 Automated blood basophils/100 leukocytes 0 % 0-10 Blood neutrophils automated count (number/volume) 3.3 10*3 1.8-7.8 Blood lymphocytes automated count (number/volume) 2.2 10*3 1.0-4.0 Blood monocytes automated count (number/volume) 0.5 10*3 0.0- 1.0 Automated eosinophil count 0.3 10*3/uL 0.0-0.3 Automated blood basophil count (count/volume) 0.0 10*3/uL 0.0-0.1 Comprehensive metabolic panel - 12/19/18 15:26 Serum or plasma sodium measurement (moles/volume) 140 mmol/L 135-145 Serum or plasma potassium measurement (moles/volume) 4.0 mmol/L 3.6-5.0 Serum or plasma chloride measurement (moles/volume) 106 mmol/L 98-107 Carbon dioxide 22 mmol/L 21-32 Serum or plasma anion gap determination (moles/volume) 12 mmol/L 5-14 Serum or plasma urea nitrogen measurement (mass/volume) 14 mg/dL 7-18 Serum or plasma creatinine measurement (mass/volume) 1.03 mg/dL 0.60-1.30 Serum or plasma urea nitrogen/creatinine mass ratio 14 NRG Serum or plasma creatinine measurement with calculation of estimated glomerular filtration rate > NRG Serum or plasma glucose measurement (mass/volume) 85 mg/dL 70-105 Serum or plasma calcium measurement (mass/volume) 9.2 mg/dL 8.5-10.1 Serum or plasma total bilirubin measurement (mass/volume) 1.5 mg/dL 0.1-1.0 Serum or plasma alkaline phosphatase measurement (enzymatic activity/volume) 85 U/L 40-136 Serum or plasma aspartate aminotransferase measurement (enzymatic activity/volume) 28 U/L 5-34 Serum or plasma alanine aminotransferase measurement (enzymatic activity/volume) 25 U/L 0-55 Serum or plasma protein measurement (mass/volume) 6.5 g/dL 6.4-8.2 Serum or plasma albumin measurement (mass/volume) 3.9 g/dL 3.2-4.5 CALCIUM CORRECTED 9.3 mg/dL 8.5-10.1 Serum or plasma C reactive protein measurement (mass/volume) - 12/19/18 15:26 Serum or plasma C reactive protein measurement (mass/volume) 0.25 mg/dL 0.00-0.50 Complete blood count (CBC) with automated white blood cell (WBC) differential - 12/20/18 05:33 Blood leukocytes automated count (number/volume) 5.6 10*3/uL 4.3-11.0 Blood erythrocytes automated count (number/volume) 4.28 10*6/uL 4.35-5.85 Venous blood hemoglobin measurement (mass/volume) 13.1 g/dL 13.3-17.7 Blood hematocrit (volume fraction) 38 % 40-54 Automated erythrocyte mean corpuscular volume 90 [foz_us] 80-99 Automated erythrocyte mean corpuscular hemoglobin (mass per erythrocyte) 31 pg 25-34 Automated erythrocyte mean corpuscular hemoglobin concentration measurement (mass/volume) 34 g/dL 32-36 Automated erythrocyte distribution width ratio 13.5 % 10.0- 14.5 Automated blood platelet count (count/volume) 215 10*3/uL 130-400 Automated blood platelet mean volume measurement 10.6 [foz_us] 7.4-10.4 Automated blood neutrophils/100 leukocytes 83 % 42-75 Automated blood lymphocytes/100 leukocytes 14 % 12-44 Blood monocytes/100 leukocytes 3 % 0-12 Automated blood eosinophils/100 leukocytes 0 % 0-10 Automated blood basophils/100 leukocytes 0 % 0-10 Blood neutrophils automated count (number/volume) 4.7 10*3 1.8-7.8 Blood lymphocytes automated count (number/volume) 0.8 10*3 1.0-4.0 Blood monocytes automated count (number/volume) 0.2 10*3 0.0- 1.0 Automated eosinophil count 0.0 10*3/uL 0.0-0.3 Automated blood basophil count (count/volume) 0.0 10*3/uL 0.0-0.1 Comprehensive metabolic panel - 12/20/18 05:33 Serum or plasma sodium measurement (moles/volume) 136 mmol/L 135-145 Serum or plasma potassium measurement (moles/volume) 4.1 mmol/L 3.6-5.0 Serum or plasma chloride measurement (moles/volume) 108 mmol/L 98-107 Carbon dioxide 20 mmol/L 21-32 Serum or plasma anion gap determination (moles/volume) 8 mmol/L 5-14 Serum or plasma urea nitrogen measurement (mass/volume) 14 mg/dL 7-18 Serum or plasma creatinine measurement (mass/volume) 0.98 mg/dL 0.60-1.30 Serum or plasma urea nitrogen/creatinine mass ratio 14 NRG Serum or plasma creatinine measurement with calculation of estimated glomerular filtration rate > NRG Serum or plasma glucose measurement (mass/volume) 135 mg/dL 70-105 Serum or plasma calcium measurement (mass/volume) 9.5 mg/dL 8.5-10.1 Serum or plasma total bilirubin measurement (mass/volume) 1.5 mg/dL 0.1-1.0 Serum or plasma alkaline phosphatase measurement (enzymatic activity/volume) 76 U/L 40-136 Serum or plasma aspartate aminotransferase measurement (enzymatic activity/volume) 23 U/L 5-34 Serum or plasma alanine aminotransferase measurement (enzymatic activity/volume) 22 U/L 0-55 Serum or plasma protein measurement (mass/volume) 6.2 g/dL 6.4-8.2 Serum or plasma albumin measurement (mass/volume) 3.8 g/dL 3.2-4.5 CALCIUM CORRECTED 9.7 mg/dL 8.5-10.1 Automated blood complete blood count (hemogram) panel - 12/27/18 14:10 Blood leukocytes automated count (number/volume) 7.7 10*3/uL 4.3-11.0 Blood erythrocytes automated count (number/volume) 4.48 10*6/uL 4.35-5.85 Venous blood hemoglobin measurement (mass/volume) 13.8 g/dL 13.3-17.7 Blood hematocrit (volume fraction) 40 % 40-54 Automated erythrocyte mean corpuscular volume 88 [foz_us] 80-99 Automated erythrocyte mean corpuscular hemoglobin (mass per erythrocyte) 31 pg 25-34 Automated erythrocyte mean corpuscular hemoglobin concentration measurement (mass/volume) 35 g/dL 32-36 Automated erythrocyte distribution width ratio 13.9 % 10.0- 14.5 Automated blood platelet count (count/volume) 246 10*3/uL 130-400 Automated blood platelet mean volume measurement 10.3 [foz_us] 7.4-10.4 Whole blood basic metabolic panel - 12/27/18 16:10 Serum or plasma sodium measurement (moles/volume) 139 mmol/L 135-145 Serum or plasma potassium measurement (moles/volume) 3.6 mmol/L 3.6-5.0 Serum or plasma chloride measurement (moles/volume) 108 mmol/L 98-107 Carbon dioxide 21 mmol/L 21-32 Serum or plasma anion gap determination (moles/volume) 10 mmol/L 5-14 Serum or plasma urea nitrogen measurement (mass/volume) 13 mg/dL 7-18 Serum or plasma creatinine measurement (mass/volume) 1.06 mg/dL 0.60-1.30 Serum or plasma urea nitrogen/creatinine mass ratio 12 NRG Serum or plasma creatinine measurement with calculation of estimated glomerular filtration rate > NRG Serum or plasma glucose measurement (mass/volume) 82 mg/dL 70-105 Serum or plasma calcium measurement (mass/volume) 9.2 mg/dL 8.5-10.1 Capillary blood glucose measurement by glucometer (mass/volume) - 02/07/19 15:47 Capillary blood glucose measurement by glucometer (mass/volume) 131 mg/dL 70-110 Complete blood count (CBC) with automated white blood cell (WBC) differential - 02/07/19 16:25 Blood leukocytes automated count (number/volume) 12.7 10*3/uL 4.3-11.0 Blood erythrocytes automated count (number/volume) 4.58 10*6/uL 4.35-5.85 Venous blood hemoglobin measurement (mass/volume) 13.8 g/dL 13.3-17.7 Blood hematocrit (volume fraction) 41 % 40-54 Automated erythrocyte mean corpuscular volume 89 [foz_us] 80-99 Automated erythrocyte mean corpuscular hemoglobin (mass per erythrocyte) 30 pg 25-34 Automated erythrocyte mean corpuscular hemoglobin concentration measurement (mass/volume) 34 g/dL 32-36 Automated erythrocyte distribution width ratio 13.6 % 10.0- 14.5 Automated blood platelet count (count/volume) 236 10*3/uL 130-400 Automated blood platelet mean volume measurement 9.9 [foz_us] 7.4-10.4 Automated blood neutrophils/100 leukocytes 80 % 42-75 Automated blood lymphocytes/100 leukocytes 12 % 12-44 Blood monocytes/100 leukocytes 7 % 0-12 Automated blood eosinophils/100 leukocytes 0 % 0-10 Automated blood basophils/100 leukocytes 0 % 0-10 Blood neutrophils automated count (number/volume) 10.2 10*3 1.8-7.8 Blood lymphocytes automated count (number/volume) 1.6 10*3 1.0-4.0 Blood monocytes automated count (number/volume) 0.9 10*3 0.0- 1.0 Automated eosinophil count 0.0 10*3/uL 0.0-0.3 Automated blood basophil count (count/volume) 0.0 10*3/uL 0.0-0.1 Blood lactic acid measurement (moles/volume) - 02/07/19 16:25 Blood lactic acid measurement (moles/volume) 1.86 mmol/L 0.50- 2.00 Comprehensive metabolic panel - 02/07/19 16:25 Serum or plasma sodium measurement (moles/volume) 139 mmol/L 135-145 Serum or plasma potassium measurement (moles/volume) 3.9 mmol/L 3.6-5.0 Serum or plasma chloride measurement (moles/volume) 107 mmol/L 98-107 Carbon dioxide 21 mmol/L 21-32 Serum or plasma anion gap determination (moles/volume) 11 mmol/L 5-14 Serum or plasma urea nitrogen measurement (mass/volume) 15 mg/dL 7-18 Serum or plasma creatinine measurement (mass/volume) 1.04 mg/dL 0.60-1.30 Serum or plasma urea nitrogen/creatinine mass ratio 14 NRG Serum or plasma creatinine measurement with calculation of estimated glomerular filtration rate > NRG Serum or plasma glucose measurement (mass/volume) 103 mg/dL 70-105 Serum or plasma calcium measurement (mass/volume) 10.0 mg/dL 8.5-10.1 Serum or plasma total bilirubin measurement (mass/volume) 1.8 mg/dL 0.1-1.0 Serum or plasma alkaline phosphatase measurement (enzymatic activity/volume) 82 U/L 40-136 Serum or plasma aspartate aminotransferase measurement (enzymatic activity/volume) 17 U/L 5-34 Serum or plasma alanine aminotransferase measurement (enzymatic activity/volume) 18 U/L 0-55 Serum or plasma protein measurement (mass/volume) 7.1 g/dL 6.4-8.2 Serum or plasma albumin measurement (mass/volume) 4.2 g/dL 3.2-4.5 CALCIUM CORRECTED 9.8 mg/dL 8.5-10.1 Magnesium - 02/07/19 16:25 Magnesium 1.6 mg/dL 1.8-2.4 Lipase - 02/07/19 16:25 Lipase 18 U/L 8-78 Serum or plasma troponin i.cardiac measurement (mass/volume) - 02/07/19 16:25 Serum or plasma troponin i.cardiac measurement (mass/volume) < ng/mL <0.028 Radiology Report from [facility] on 11/17/2015 20:23:[address] [facility] [address] [place] [address] PHONE #: [phone] FAX #: [phone] Name: ANA WALKER Loc: E.PRA1 B Radiology No: : 1935 Age: 80 Sex: M Status: ADM IN Unit No: [id number] Phys: Shun Jackson Acct: [id number] Reason For Exam: NO PEDAL, POST TIB, POP PULSES Exam Date: 11/17/2015 EXAMS: CPT CODE: [id number] DOPPLER LOW EXTR ART [facility] [address] TIME OF EXAM: 11/17/2015 6:54 PM REASON FOR EXAM: NO PEDAL, POST TIB, POP PULSES COMPARISON: None. Doppler, negro-scale and color-flow imaging of the left lower extremity arterial system was performed. cm/sec: GEOGRAPHIC INFORMATION SYSTEM ANALYST :74 SFA prox:69 SFA mid:77 SFA distal:6 Popliteal mid: 13 Popliteal distal: 6 ISIS : 15 SOFTWARE PUBLISHER : 10 Dorsalis Pedis : Absent Left lower extremity: A normal triphasic waveform is seen to the level of the mid SFA. Flow is essentially absent distal to the level of the mid SFA. IMPRESSION: No Doppler arterial blood flow distal to the level of the mid SFA. Findings were discussed with OR nurse who relayed results to Shun Jackson MD on 11/17/2015 7:02 PM approximately. I have personally reviewed these images and approved or corrected the resident physician's interpretation. at 2018 RESIDENT: JAMES MONDRAGON MD Reported and signed by: ERICK VILLEGAS MD PAGE 1 Signed Report (CONTINUED) DIAGNOSTIC IMAGING REPORT [facility] - [address] [place] [id number] PHONE #: [phone] FAX #: [phone] Name: ANA WALKER Loc: E.PRA1 B Radiology No: : 1935 Age: 80 Sex: M Status: ADM IN Unit No: [id number] Phys: Shun Jackson Acct: [id number] Reason For Exam: NO PEDAL, POST TIB, POP PULSES Exam Date: 11/17/2015 EXAMS: CPT CODE: [id number] [place] [address] <Continued> CC: Daphne Butcher MD; Shun Jackson MD Technologist: NOAH CABRALES Transcribed Date/Time: 11/17/2015 (2017)Brake Tester: RAÚL Printed Date/Time: 11/17/2015 (2022) BATCH NO: N/A PAGE 2 Signed Report Radiology Report from [facility] on 11/18/2015 14:38:00 [facility] [address] [place] [address] PHONE #: [phone] FAX #: [phone] Name: AARONANA MICHAEL Loc: E.217 1 Radiology No: : 1935 Age: 80 Sex: M Status: ADM IN Unit No: [id number] Phys: Shun Jackson Acct: [id number] Reason For Exam: ENDOVASCULAR ANYEUISM REPAIR Exam Date: 11/17/2015 EXAMS: CPT CODE: [id number] SGY ABD AORTA W/RUNOFF 16112 [id number] [place] [address] Radiologist interpretation was not provided for this study. Please refer to the surgeon's intraoperative report for information regarding intraoperative images. at 1438 Reported by: CLAIRE FOWLER Signed by: CLAIRE FOWLER CC: Daphne Butcher MD; Shun Jackson MD Technologist: RYLAND HERNANDEZ; EMORY FLOYD Transcribed Date/Time: 11/18/2015 (6490)Brake Tester: MOODY Printed Date/Time: 11/18/2015 (0804) BATCH NO: N/A PAGE 1 Signed Report Radiology Report from [facility] on 11/18/2015 14:38:00 [facility] [address] [place] [address] PHONE #: [phone] FAX #: [phone] Name: ANA WALKER Loc: E.217 1 Radiology No: : 1935 Age: 80 Sex: M Status: ADM IN Unit No: [id number] Phys: NETTA Shun Jackson Acct: [id number] Reason For Exam: ENDOVASCULAR ANYEUISM REPAIR Exam Date: 11/17/2015 EXAMS: CPT CODE: [id number] SGY ABD AORTA W/RUNOFF 67788 [id number] [place] [address] Radiologist interpretation was not provided for this study. Please refer to the surgeon's intraoperative report for information regarding intraoperative images. at 1432 Reported by: CLAIRE FOWLER Signed by: CLAIRE FOWLER CC: Daphne Butcher MD; Shun Jackson MD Technologist: RYLAND HERNANDEZ; EMORY FLOYD Transcribed Date/Time: 11/18/2015 (7270)Brake Tester: MOODY Printed Date/Time: 11/18/2015 (1500) BATCH NO: N/A PAGE 1 Signed Report Radiology Report from [facility] on 11/30/2015 01:33:00 DIAGNOSTIC IMAGING REPORT [facility] - [address] [place] [address] PHONE #: [phone] FAX #: [phone] Name: ANA WALKER Loc: E.ICU3 1 Radiology No: : 1935 Age: 80 Sex: M Status: ADM IN Unit No: [id number] Phys: ALONSO Javier Christina Main Acct: [id number] Reason For Exam: RESPIRATORY DISTRESS ADMIT Exam Date: 11/29/2015 EXAMS: CPT CODE: [id number] CHEST AP/PA ONLY 20337 TIME OF STUDY: 11/29/2015 4:33 PM REASON FOR EXAM: RESPIRATORY DISTRESS ADMIT COMPARISON: Chest radiograph 09/19/2014. CT chest 02/24/2015. FINDINGS: AP view of the chest was obtained. Exam is lordotic in nature. Lung volumes are mildly decreased with subtotal inspiratory depth. No pulmonary mass or consolidation is present. There is no pleural effusion or pneumothorax. Heart size is mildly enlarged but less prominent than on prior study (likely related to technique). The spinal silhouette shows mild convexity in the region of the ascending aorta. There is also mild prominence of the aortic arch. Pulmonary vasculature is normal. Unremarkable regional skeletal structures. IMPRESSION: 1. No new acute thoracic process. 2. 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 This is similar to prior studies. at 5498 Reported and signed by: MIKEY MADDOX MD CC: Christina Main MD Technologist: AISHWARYA BOWSER Transcribed Date/Time: 11/29/2015 (4450)Brake Tester: MAHNAZ Printed Date/Time: 11/30/2015 (0963) BATCH NO: N/A PAGE 1 Signed Report Radiology Report from [facility] on 12/29/2016 17:29:00 DIAGNOSTIC IMAGING REPORT [facility] - [address] [place] [address] PHONE #: [phone] FAX #: [phone] Name: ANA WALKER [facility] No: : 1935 Age: 81 Sex: M Status: REG I Unit No: [id number] Phys: Shai Rushing Acct: [id number] Reason For Exam: AAA Exam Date: 12/29/2016 EXAMS: CPT CODE: [id number] CT ANGIO CHEST- DISSECT 90835 TIME OF EXAM: 12/29/2016 2:55 PM REASON FOR EXAM: AAA. 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 COMPARISON: CT chest 02/24/2015, 09/20/2014. TECHNIQUE: Noncontrast enhanced helical images were obtained through the chest. Contrast enhanced thin section helical images were obtained through the chest with the bolus of contrast timed for the optimal opacification of the arterial structures per departmental CTA protocol; Post- processing, retro reconstruction, and interpretation of angiographic images of the vessels was performed. 3-D reconstructions were performed on an independent workstation and reviewed. FINDINGS: CTA CHEST: Aortic tortuosity and mild atherosclerosis is present. However, there is no evidence of aneurysm or dissection. No intramural hematoma is present. Precise measurements of the aortic root are difficult to obtain due to lack of EKG gating and cardiac pulsation. However, approximate orthogonal measurements as follows: Annulus: 3.4 x 2.6 cm. Sinuses of Valsalva: 4.3 x 4.2 x 4.2 cm. Sinotubular junction: 4.3 x 4.3 cm. Mid ascending aorta: 4.9 x 4.9 cm. Ascending aorta prior to the takeoff of the right brachiocephalic artery: 4.6 x 4.7 cm. Proximal descending thoracic aorta: 3.7 x 3.7 cm. Distal descending thoracic aorta: 3.5 x 3.5 cm. The arch vessels show minimal atherosclerosis without stenosis. Tortuosity of the arch vessels is present. Mild cardiomegaly is present. Coronary stents are noted with atherosclerosis. No pericardial effusion is present. Pulmonary trunk caliber is normal. There is no axillary, supraclavicular, mediastinal, or hilar adenopathy by CT criteria. Lung volume is normal. The lungs demonstrate no mass or consolidation. 5 mm nodule is present in the left upper lobe (image 34 series 5). This is stable from 2013, presumed benign. Subsegmental atelectasis is present in the bilateral lower lobes. No central endoluminal airway PAGE 1 Signed Report (CONTINUED) DIAGNOSTIC IMAGING REPORT [facility] - [address] [place] [address] PHONE #: [phone] FAX #: [phone] Name: ANA WALKER Loc: [facility] Radiology No: : 1935 Age: 81 Sex: M Status: REG CLI Unit No: [id number] Phys: Shai Rushing Acct: [id number] Reason For Exam: linda for Exam: AAA Exam Date: 12/29/2016 EXAMS: CPT CODE: [id number] CT ANGIO CHEST-DISSECT 25426 <Continued> lesion is present. Pleural spaces demonstrate no ef fusion or nodularity. There is no pneumothorax. Skeletal structures demonstrate degenerative changes without aggressive lesions. Abdomen shows no acute process. Again noted is mild narrowing of the celiac axis origin with poststenotic aneurysmal dilation. This is stable from 2014. Stable associated short focal dissection is present. Known abdominal aortic aneurysm is not included on this exam targeted to the chest. IMPRESSION: 1. Aortic aneurysm and atherosclerosis. No dissection or intramural hematoma. Aortic caliber is stable from prior study, with maximal measurement of 4.9 cm. 2. Mild cardiomegaly. No edema. 3. 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 4. 5 mm pulmonary nodule in the left upper lobe, stable from 2014, presumed benign. Electronically Signed by MIKEY MADDOX MD on 12/15 at 9364 Reported and signed by: MIKEY MADDOX MD CC: Bhavin Fernandez MD Technologist: RYLAND HERNANDEZ; DEL ENRIQUE Transcribed Date/Time: 12/29/2016 (5339)Brake Tester: MAHNAZ Printed Date/Time: 12/29/2016 (7329) BATCH NO: N/A PAGE 2 Signed Report [facility] on 05/02/2018 10:17:00 PATIENT NAME: ANA WALKER UNIT NO: [id number] EXAMS: CPT CODE: [id number] CT ANGIO ABD PEL W CONT 55520 INDICATION: Ischemic bowel, clinical concern for fistula. GI bleed/hypotension. TIME: 05/01/2018 9:30 PM COMPARISON: CTA chest 12/29/2016, CTA abdomen and pelvis 09/20/2014 TECHNIQUE: Helical CT images were obtained through the chest, abdomen, and pelvis before and after intravenous contrast administration. Postcontrast image acquisition was timed for optimal arterial opacification per departmental CTA protocol, with postprocessed coronal, sagittal, and 3-D angiographic reformats. FINDINGS: - CTA Abdomen and Pelvis: Calcified aortoiliac atherosclerosis is noted. Again noted is an infrarenal abdominal aortic aneurysm, with sac measuring 5.9 x 5.6 cm transversely (image 89 series 500, image 59 series 501), and extending 8.3 cm craniocaudally (image 58 series 501). This previously measured by 5.1 x 4.8 cm transversely, and 6.7 cm in length. An aortobiiliac stent graft is in place, which is patent. Ill-defined hyperdensity is noted within the excluded aneurysmal sac on the delayed sequence, increased in conspicuity compared to the earlier sequences, suggestive of an endoleak (image 47 series 4). The celiac axis and SMA demonstrate trace ostial atherosclerosis, without significant stenosis. 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 The origin is spared. The JOSUE communicates with the aneurysmal sac, and is excluded by the stent graft. Minimal contrast noted in the JOSUE is likely due to collateralization. The renal arteries are patent bilaterally, each demonstrating minimal ostial atherosclerosis. Trace bilateral iliac atherosclerosis is noted, without aneurysm or significant stenosis. These vessels demonstrate normal course and caliber. Within the left groin, there is ossific material extending along the course of the left external iliac vein most consistent with heterotopic ossification, within the region of the groin. [facility] NAME: ANA WALKER [address] HP: [phone] AGE: 83 S:[place], [place] [id number] : 1935 LOC: W.7423 1 PHYS: Shala Esparza MD R2 PHONE #: [phone] EXAM DATE: 05/01/2018 STATUS: ADM IN FAX #: [phone] A#: [id number] U#: [id number] PAGE 1 Signed Report (CONTINUED) PATIENT NAME: ANA WALKER UNIT NO: [id number] EXAMS: CPT CODE: [id number] CT ANGIO ABD PEL W CONT 17706 <Continued> Trace pleural effusions are noted bilaterally, with compressive bibasilar atelectasis. Multichamber cardiomegaly is also noted, as well as coronary atherosclerosis and endovascular stents in the RCA. The liver parenchyma is diffusely hypoattenuating, consistent with hepatic steatosis (image 17 series 2). No focal hepatic lesion is identified. Minimal asymmetric parenchymal enhancement is noted along the posterolateral margin of the right hepatic lobe which does not persist on delayed images, likely representing transient hepatic attenuation difference. The adrenal glands and pancreas are unremarkable. The gallbladder is surgically absent. An ill-defined focal hypodensity is noted within the spleen which contains nodular intrinsic fat attenuation is noted, measuring 1.8 x 1.7 cm (image 20 series 2). No definitive enhancement is evident. The spleen is otherwise unremarkable. Multiple bilateral renal cortical cysts are again noted, overall similar to prior exam. Largest on the right measures 9.5 x 7.6 cm (image 83 series 3), previously 9.4 x 9.3 cm. Largest on the left measures 4.8 x 4.5 cm (image 60 series 3), compared to 4.1 x 4.0 cm measured retrospectively. The ureters and urinary bladder are unremarkable. Small bowel is nondilated. The appendix is normal. Colonic diverticulosis is noted, without evidence of acute diverticulitis. No free fluid, free air, or other loculated collection is identified. No lymphadenopathy is identified by CT size criteria. A tiny fat-containing of local hernia is noted. A fat-containing left inguinal hernia is also noted. Focal soft tissue thickening is noted near the left internal inguinal ring, possibly due to prior herniorrhaphy (image 157 series 3). There is multilevel degenerative change within the spine, most prominent in the lower thoracic region and at the lumbosacral [facility] NAME: ANA WALKER [address] HP: [phone] AGE: 83 [facility] [facility] [facility] [id number] [facility] 1935 LOC: W.7423 1 PHYS: Shala Esparza MD R2 PHONE #: [phone] EXAM DATE: 05/01/2018 STATUS: ADM IN FAX #: [phone] A#: [id number] U#: [id number] PAGE 2 Signed Report (CONTINUED) PATIENT NAME: ANA WALKER UNIT NO: [id number] EXAMS: CPT CODE: [id number] CT ANGIO ABD PEL W CONT 55694 <Continued> junction. There is grade 1 retrolisthesis of L5 on S1. Chronic-appearing anterior compression deformity is noted at L1. There is also degenerative mediolateral curvature of the thoracolumbar spine. IMPRESSION: 1. Infrarenal abdominal aortic aneurysm with patent aortobiiliac stent graft in place. Size of the aneurysm sac has increased since 2013, now with maximal diameter of 5.9 cm. Additionally, heterogenous hyperdensity within the hernia sac, increasing in conspicuity on the delayed sequence, suggests an endoleak. No aortic dissection. 2. Stent graft excludes the JOSUE, which demonstrates evidence of collateral reperfusion. No definitive evidence of ischemic colitis. 3. Fusiform celiac artery aneurysm. 4. 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 Correlate with prior imaging. Suspect this is related to prior surgical intervention and possibly prior hematoma and/or pseudoaneurysm. 5. Trace bilateral pleural effusions. 6. Ill-defined fat-containing splenic hypodensity. Appearance is benign appearing, probably a small hamartoma. I have personally reviewed these images and corrected the resident physician's interpretation if necessary. at 1012 RESIDENT: KATE FAJARDO MD Reported and signed by: SARAH GUY MD CC: Kirit Shahid MD TECHNOLOGIST: MICHAEL MARSHALL TRANSCRIBED DATE/Time: 05/02/2018 1012 BY: PPAUVI EXAM COMPLETE DATE/TIME: [id number] D/TM:05/02/2018 (1017) [facility] NAME: ANA WALKER [address] HP: [phone] AGE: 83 S:[place] [id number] : 1935 LOC: W.7423 1 PHYS: Shala Esparza MD R2 PHONE #: [phone] EXAM DATE: 05/01/2018 STATUS: ADM IN FAX #: [phone] A#: [id number] U#: [id number] PAGE 3 Signed Report *Final Page* Encounters ACCT No. Visit Date/Time Discharge Status Pt. Type Provider Facility Loc./Unit Complaint [id number] 02/03/2018 10:20:00 02/04/2018 12:30:00 DIS Outpatient Brandyn ORDONEZ, [facility] & ER E.CVLO [id number] 12/29/2016 14:00:00 12/29/2016 14:00:00 [facility] [id number] 05/03/2016 05:52:00 05/03/2016 13:50:00 DIS Outpatient Stacie ORDONEZ, [facility] & ER E.CVLO [id number] 11/29/2015 15:25:00 12/03/2015 12:03:00 DIS Inpatient Brandyn ORDONEZ, [facility] & ER E.T4 [id number] 11/17/2015 11:06:00 11/19/2015 14:32:00 DIS Inpatient Renetta ORDONEZ, [facility] & ER E.T2 [id number] 04/30/2018 23:47:00 05/05/2018 12:19:00 DIS Inpatient Kleber ORDONEZ, Kirit W3TN [id number] 02/03/2018 12:30:00 02/03/2018 12:30:00 CAN Out[facility]ONE[facility] [id number] 03/15/2019 07:34:00 03/15/2019 23:59:59 CLS Outpatient KOURTNEY NANCE [facility] RAD ABD AORTIC ANERYSM [id number] 03/07/2019 12:33:00 03/07/2019 23:59:59 CLS Preadmit GARCIA KRAFT REDE [facility] RAD ABDOMINAL AORTIC ANEURYSM [id number] 02/07/2019 15:34:00 02/07/2019 21:30:00 DIS Emergency MARIIA BANEGAS MD [facility] ER POST-OP WEAKNESS [id number] 01/25/2019 11:44:00 01/25/2019 12:30:00 DIS Outpatient EMILEE HESS MD [facility] SLEEP SYL G47.33 [id number] 2019 10:47:00 2019 23:59:59 CLS Outpatient KOURTNEY NANCE [facility] RAD LEFT RIB PAIN AFTER FALL [id number] 01/08/2019 20:36:00 01/09/2019 06:40:00 DIS Outpatient EMILEE HESS MD [facility] SLEEP SYL G47.33 [id number] 12/27/2018 13:19:00 12/27/2018 17:50:00 DIS Outpatient RAMÓN PRITCHARD MD [facility] ENDO REFLUX/RECTAL BLEEDING/DIVERTICULITIS [id number] 12/26/2018 10:50:00 12/26/2018 11:38:00 DIS Outpatient RAMÓN PRITCHARD MD [facility] PREOP COLONOSCOPY/EGD [id number] 12/19/2018 18:48:00 12/20/2018 16:23:00 DIS Inpatient DAPHNE BUTCHER MD [facility] 4TH RECTAL BLEED,DIVERTICULITIS [id number] 11/27/2018 14:11:00 11/27/2018 23:59:59 CLS Outpatient KOURTNEY NANCE [facility] CARD SOB,CAD,DIZZINESS [id number] 10/20/2018 10:44:00 10/20/2018 23:59:59 CLS Outpatient DAPHNE BUTCHER MD [facility] CARD HTN,CAD [id number] 11/16/2017 09:57:00 11/16/2017 23:59:59 CLS Outpatient TIERRA DE MD [facility] RAD H91.93 HEARING LOSS [id number] 11/16/2017 09:55:00 11/16/2017 23:59:59 CLS Outpatient DAPHNE BUTCHER MD [facility] LAB CONTRAST PROTOCOL [id number] 11/10/2017 11:19:00 11/10/2017 23:59:59 CLS Outpatient TIERRA DE MD [facility] RAD BILAT HEARING LOSS [id number] 10/25/2017 09:13:00 10/25/2017 12:15:00 DIS Outpatient WALI SALAZAR DO [facility] ENDO DYSPHAGIA [id number] 10/20/2017 05:38:00 10/20/2017 15:05:00 DIS Outpatient WALI SALAZAR DO [facility] PREOP EGD [id number] 03/22/2017 07:53:00 03/22/2017 23:59:59 CLS Outpatient KOURTNEY NANCE [facility] LAB CONTRAST PROTOCOL [id number] 03/22/2017 07:48:00 03/22/2017 23:59:59 CLS Outpatient SHAI HOLLAND PA-C [facility] RAD INF RENAL ANEURYSM [id number] 01/07/2017 10:14:00 01/07/2017 23:59:59 CLS Outpatient SHAI HOLLAND PA-C [facility] RAD AAA,LE PAD [id number] 01/04/2017 09:21:00 01/04/2017 23:59:59 CLS Outpatient GARCIA KRAFT APRN [facility] LAB AAA,PAD [id number] 04/07/2016 08:49:00 04/07/2016 23:59:59 CLS Outpatient LORENA MATA MD, I [facility] RAD N28.1 [id number] 11/27/2015 14:16:00 11/29/2015 13:50:00 DIS Inpatient DAPHNE BUTCHER MD [facility] 4TH WEAKNESS,ANEMIA,HYPOXEMIA [id number] 06/11/2015 08:27:00 06/11/2015 13:50:00 DIS Out[facility] [id number] 06/09/2015 10:24:00 06/09/2015 23:59:59 CLS Outpatient EMILEE LEUNG MD [facility] PREOP [id number] 05/27/2015 15:13:00 05/27/2015 23:59:59 CLS Outpatient MADISON CARL [facility] RAD [id number] 09/13/2014 09:07:00 09/13/2014 14:36:00 DIS Emergency MARIA E ORDONEZ, AMELIE Adler [facility] ER [id number] 05/06/2014 15:10:00 05/06/2014 23:59:59 CLS Outpatient FRANCISCO ORDONEZ, DOUG Payan [facility] RAD [id number] 03/23/2019 17:55:00 ACT Emergency SARA MARQUEZ [facility] ER FALL,HEAD LAC [id number] 12/11/2014 10:40:00 Document Registration
== END 2019-03-23 20:33 | disposition home or self-care (01) ==
LOC: EDUNIT# 17:54 → ER 17:55
DX: S01.00XA Unspecified open wound of scalp, initial encounter (principal); G47.30 Sleep apnea, unspecified; I10 Essential (primary) hypertension; R40.2142 Coma scale, eyes open, spontaneous, at arrival to emergency department; R40.2252 Coma scale, best verbal response, oriented, at arrival to emergency department; R40.2362 Coma scale, best motor response, obeys commands, at arrival to emergency department; Z82.49 Family history of ischemic heart disease and other diseases of the circulatory system; Z87.442 Personal history of urinary calculi; Z88.1 Allergy status to other antibiotic agents; Z88.8 Allergy status to other drugs, medicaments and biological substances; Z91.041 Radiographic dye allergy status; Z79.51 Long term (current) use of inhaled steroids; Z79.02 Long term (current) use of antithrombotics/antiplatelets; Z87.19 Personal history of other diseases of the digestive system; Z95.5 Presence of coronary angioplasty implant and graft; Z98.890 Other specified postprocedural states; W22.09XA Striking against other stationary object, initial encounter
CPT/HCPCS: 70450; 90471; 90715; 99282

== ENCOUNTER 2019-03-30 16:13 | Inpatient (IN) | payer MEDICARE ==
[~2019-03-30] VITALS: Ht 182.9 cm; Wt 90.3 kg
[~2019-03-30 16:13] MED LIST changes: +FLUT9.9S NS; -FLUT9.9S NSEACH
[2019-04-04 13:00] VITALS: BP 111/76
--- NOTE | 2019-04-04 13:07 | NUR ---
ANA WALKER admitted to room 233-1, with an admitting diagnosis of BRAIN ANEURYSM, on 04/04/19 from [facility] via [facility], accompanied by FAMILY. ANA WALKER introduced to surroundings, call light, bed controls, phone, TV, temperature control, lights, meal times, smoking policy, visitor policy, side rail policy, bathrooms and showers. Patient Rights given to patient in the handbook. ANA WALKER verbalizes understanding that [facility] is not responsible for the loss or damage to any personal effects or valuables that are kept in the patient's possession during their hospitalization. The following Patient Care Plans were discussed with the PATIENT: Discharge Planning, IMPAIRED MOBILITY, HIGH RISK: IMPAIRED SKIN INTEGRITY, HIGH RISK: INJURY, and KNOWLEDGE DEFICIT. ANA WALKER verbalizes understanding of Interdisciplinary Patient Education. Patient received Patient Rights Booklet, which includes Privacy Act Statement and Data Collection Information Summary.
[2019-04-04] MEDS ORDERED: CHOL10007 PO (13:53)
[2019-04-04] MEDS ORDERED: MULT-166 PO (13:53)
[2019-04-04] MEDS ORDERED: FEXO180T84 PO (13:53)
[2019-04-04] MEDS ORDERED: AMIO200T4 PO (13:53)
[2019-04-04] MEDS ORDERED: CARB15DR OU (13:53)
[2019-04-04] MEDS ORDERED: ROPI0.253 PO (13:53)
[2019-04-04] MEDS ORDERED: ASPI325T32 PO (13:53)
[2019-04-04] MEDS ORDERED: ATOR80TA76 PO (13:53)
[2019-04-04] MEDS ORDERED: HEPA50002 SC (13:53)
[2019-04-04] MEDS ORDERED: WARF3TAB56 PO (13:53)
[2019-04-04] MEDS ORDERED: ACET325T49 PO (13:53)
[2019-04-04] MEDS ORDERED: CITA40TA11 PO (13:53)
[2019-04-04] MEDS ORDERED: CHOL500044 PO (13:57)
[2019-04-04] MEDS ORDERED: NITR0.4T42 SL (13:57)
[2019-04-04] MEDS ORDERED: CLOP75TA69 PO (13:58)
[2019-04-04] MEDS ORDERED: BISACODYL 10 MG SUPP (DULCOLAX) PR NR (14:00)
--- NOTE | 2019-04-04 14:18 | NUR ---
UPDATED MED REC TO THE LIST OF MEDICATIONS ORDERED UPON DISCHARGE FROM . THE FOLLOWING CHANGES WERE MADE AT THAT DISCHARGE: START TAKING: TYLENOL 325MG 2 Q6H PRN ASPIRIN 325MG DAILY HEPARIN 5,000 UNITS/ 0.5ML INJECTION SYRINGE - 0.5ML SUBQ Q8H NOTE THE MED LIST FROM STATES WARFARIN 3MG 3 TABS DAILY HOWEVER THE EXT MED HX SHOWS THE WARFARIN WAS LAST FILLED #90 FOR 90 DAYS 02-07-19 - I VERIFIED WITH THE PATIENTS THAT HE WAS ONLY TAKING 1 3MG TABLET DAILY. I UPDATED THAT ON THE MED REC. ALSO NOTE PLAVIX 75MG WAS FILLED #90 12-27-18 HOWEVER HIS STATES THAT AND THE OTC ASPIRIN HAS BEEN STOPPED WHEN HE WAS STARTED ON THE WARFARIN PRIOR TO ADMISSION TO . I WILL UPDATE THE MED REC AT A LATER DATE TO THE MED LIST THE PATIENT WAS TAKING PRIOR TO THE CHANGES AT FOR PROPER DISCHARGE TO HOME ORDERS. Addendum: 04/06/19 at 0839 by TEJA GONZALEZ [facility] REMOVED THE TYLENOL, ASPIRIN 325MG, AND HEPARIN FROM THE MED REC AT THIS TIME THAT WAS ORDERED AT DISCHARGE FROM . ASPIRIN 81MG AND CULTURELLE WERE REMOVED FROM THE PATIENTS MEDS LIST AT HOWEVER THE PATIENTS STATED HE WAS NO LONGER TAKING IT AT HOME PRIOR TO ADMISSION TO SO I DID NOT ADD THEM BACK TO THE MED REC AT THIS TIME. CURRENTLY THE MED REC REFLECTS THE MEDICATIONS THE PATIENT WAS TAKING AT HOME PRIOR TO ADMISSION AT .
--- NOTE | 2019-04-04 14:20 | Physical Therapy Evaluation ---
PT Evaluation-General Medical Diagnosis Admission Date Apr 04, 2019 at 12:46 Medical Diagnosis: Brain aneurysm Onset Date: Apr 04, 2019 Therapy Diagnosis Therapy Diagnosis: abnormal gait Height/Weight Height (Feet): 6 Height (Inches): 0 Weight (Pounds): 205 Weight (Ounces): 6.0 Precautions Precautions/Isolations: Standard Precautions Referral Physician: Rebecca Reason for Referral: Evaluation/Treatment Medical History Pertinent Medical History: Arthritis, CAD, HTN Current History Post brain aneurysm Reviewed History: Yes Social History Home: Single Level Current Living Status: Spouse Entry Into Home: Stairs Without Railing PT Steps Into Home: 2 PT Steps Inside Home: 1 (2 separate curb like steps in his home. ) Prior/Core FIM Prior Level of Function Therapy Code Descriptions/Definitions Functional [place] Measure: 0=Not Assessed/NA 4=Minimal Assistance 1=Total Assistance 5=Supervision or Setup 2=Maximal Assistance 6=Modified [place] 3=Moderate Assistance 7=Complete [place] Therapy Quality Codes: 6 Independent with activity with or without an assistive device 5 Patient requires set up or clean up by helper. Patient completes activity by themselves 4 Supervision or touching assist (CGA). [place] provide cues , steadying a ssist 3 The helper provides less than half the effort to complete the activity 2 The helper provides more than half the effort to complete the activity 1 Dependent. The helper does all the effort to complete an activity 7 Patient refused to complete or attempt activity 9 The patient did not perform the activity before the current illness or injury 88 Not attempted due to Medical conditions or safety concerns Functional Abilities and Goals: Independent: Patient completed the activities by him/herself, with or without an assistive device, with no assistance from a helper. Needed Some Help: Patient needed partial assistance from another person to complete activities. Dependent: A helper completed the activities for the patient. Unknown: Not Applicable: Bed Mobility: 7 Transfers (B,C,W/C) (FIM): 6 Gait: 6 Stairs: 7 Indoor Mobility (Ambulation): Independent Stairs: Independent Prior Devices Use: Walker Prior Device Use: pt uses a cane and/or a walker at home. PT Evaluation-Current Subjective "I don;'t hear very well." Pt reports he is anxious to discharge home. Pain Numeric Pain Scale: 0-No Pain Location: No Pain Reported Objective Patient Orientation: Person, Place, Time, Situation Problem Solving: Fair (impulsive) ROM/Strength ROM Lower Extremities WNL Strenght Lower Extremities strength is grossly 4-/5 throughout Integumentary/Posture Integumentary Refer to nursing notes for full assessment. Bowel Incontinence: No Bladder Incontinence: Yes Posture sligthly rounded shoulders but generally wnl Sensory Vision: Functional Hearing: Hearing Aid/Aides Hand Dominance: Right Sensation Right Lower Extremit: Intact Sensation Left Lower Extremity: Intact Transfers Therapy Code Descriptions/Definitions Functional [place] Measure: 0=Not Assessed/NA 4=Minimal Assistance 1=Total Assistance 5=Supervision or Setup 2=Maximal Assistance 6=Modified [place] 3=Moderate Assistance 7=Complete [place] Therapy Quality Codes: 6 Independent with activity with or without an assistive device 5 Patient requires set up or clean up by helper. Patient completes activity by themselves 4 Supervision or touching assist (CGA). [place] provide cues , steadying assist 3 The helper provides less than half the effort to complete the activity 2 The helper provides more than half the effort to complete the activity 1 Dependent. The helper does all the effort to complete an activity 7 Patient refused to complete or attempt activity 9 The patient did not perform the activity before the current illness or injury 88 Not attempted due to Medical conditions or safety concerns Transfers (B, C, W/C) (FIM): 4 Roll Left to Right (QC): 4 Supine to/from Sit: 4 Sit to/from Stand: 4 Sit to Lying (QC): 4 Lying to Sitting/Side of Bed(Q: 4 Sit to Stand (QC): 4 Chair/Dqm-es-Rawkk Xfer(QC): 4 CGA for transfers with heavy cues for sequencing and safety; slightly impulsive with tasks. Gait Does the Patient Walk?: Yes Mode of Locomotion: Walk Anticipated Mode of Locomotion: Walk Gait (FIM): 4 Distance (FIM): 3=150 ft Walk 10 feet (QC): 4 Walk 50 ft with 2 Turns(QC): 4 Walk 150 ft (QC): 4 Walking 10ft/uneven surface-QC: 4 Gait Assistive Device: FWW Comments/Gait Description slightly unsteady with altered path, tends to veer at times; CGA to min assist for safety. Wheelchair Training Does the Pt Use a Wheelchair?: No Stairs Stairs (FIM): 2 #of Steps: 4 Level of Assist: 4 (CGA for safety) 1 Step (curb) (QC): 4 4 Steps (QC): 4 12 Steps (QC): 88 reciprocal gait pattern Balance Sitting Static: Good Sitting Dynamic: Good Standing Static: Fair Standing Dynamic: Fair Picking up an Object (QC): 88 Treatment Functional transfer and gait training with skilled cues for safety and sequencing. Safety education with gait and fall risk indicators. Pt rode the nu step x 12 minutes. Walked on varied surfaces and stairs to improve functional activity toelrance as well as functional strength. Assessment/Needs Post acute hospital stay at [facility] due to a brain aneurysm. He presents with unsteady gait and decreased safety awareness that lends to an increased fall risk. In addition, he requires assist with functional transfers and significant cues for safety. He is very motivated and cooperative. He will benefit from skilled training and has good ability to learn and improve. Rehab Potential: Good PT Short Term Goals Short Term Goals Time Frame: Apr 11, 2019 Transfers (B,C,W/C) (FIM): 5 Gait (FIM): 5 PT Pump Servicer Helper Goals Skilled Nursing Goals PT Pump Servicer Helper Goals Time Frame: Apr 18, 2019 Transfers (B,C,W/C) (FIM): 7 Sit to Lying (QC): 6 Lying-Sitting on Side/Bed(QC): 6 Sit to Stand (QC): 6 Roll Left to Right (QC): 6 Chair/Kop-tt-[facility] Xfer(QC): 6 Car Transfer (QC): 6 Does the Patient Walk: Yes Gait (FIM): 6 Gait distance (FIM): 3=150 ft Walk 10 feet (QC): 6 Walk 10ft-Uneven Surface(QC): 6 Walk 50ft with 2 Turns (QC): 6 Walk 150 ft (QC): 6 Gait Assistive Device: FWW Does the Pt use WC or Scooter?: No Stairs (FIM): 6 # of Steps: 12 1 Step (curb) (QC): 6 4 Steps (QC): 6 12 Steps (QC): 6 Picking up an Object (QC): 88 PT Plan Problem List Problem List: Activity Tolerance, Functional Strength, Safety, Balance, Gait, Transfer, Bed Mobility Treatment/Plan Treatment Plan: Continue Plan of Care Treatment Plan: Bed Mobility, Education, Functional Activity Ronit, Functional Strength, Group Therapy, Gait, Safety, Therapeutic Exercise, Transfers Treatment Duration: Apr 18, 2019 Frequency: At least 5 of 7 days/Wk (IRF) Estimated Hrs Per Day: 1.5 hours per day Patient and/or Family Agrees t: Yes Safety Risks/Education Patient Education: Transfer Techniques, Safety Issues Teaching Recipient: Patient Teaching Methods: Demonstration, Discussion Response to Teaching: Reinforcement Needed Time/GCodes Time In: 1245 Time Out: 1300 ([id number]) Total Billed Treatment Time: 75 Total Billed Treatment visit EVM 15 Visit FA 48 EX 12 LUBA SALAS PT Apr 04, 2019 14:20
--- NOTE | 2019-04-04 14:45 | Occupational Therapy Eval ---
OT Evaluation-General/PLF Medical Diagnosis Admission Date Apr 04, 2019 at 12:46 Medical Diagnosis: Brain aneurysm Onset Date: Apr 04, 2019 Therapy Diagnosis Therapy Diagnosis: decreased self care skills Height/Weight Height (Feet): 6 Height (Inches): 0 Weight (Pounds): 205 Weight (Ounces): 6.0 Precautions Precautions/Isolations: Standard Precautions Referral Physician: Rebecca Medical History Pertinent Medical History: Arthritis, CABG, CAD, HTN Additional Medical History multiple coronary stents, A-fib Current History Per note from outside hospital pt had roughly a year of gait instability, urinary incontinence and cognitive decline suggestive of normal pressure hydrocephalus. Pt also has recently discovered large basilar aneurysm. Pt had a left CHIEF PASSENGER SHIP STEWARD/STEWARDESS shunt placed on 03/29/19. Reviewed History: Yes Social History Home: Single Level Current Living Status: Spouse Entry Into Home: Stairs Without Railing Steps Into Home: 1 Steps Inside Home: 1 (Pt has one step into family room and one step into kitchen) ADL-Prior Level of Function Therapy Code Descriptions/Definitions Functional Snyder Measure: 0=Not Assessed/NA 4=Minimal Assistance 1=Total Assistance 5=Supervision or Setup 2=Maximal Assistance 6=Modified Snyder 3=Moderate Assistance 7=Complete Snyder Therapy Quality Codes: 6 Independent with activity with or without an assistive device 5 Patient requires set up or clean up by helper. Patient completes activity by themselves 4 Supervision or touching assist (CGA). [place] provide cues , steadying assist 3 The helper provides less than half the effort to complete the activity 2 The helper provides more than half the effort to complete the activity 1 Dependent. The helper does all the effort to complete an activity 7 Patient refused to complete or attempt activity 9 The patient did not perform the activity before the current illness or injury 88 Not attempted due to Medical conditions or safety concerns Functional Abilities and Goals: Independent: Patient completed the activities by him/herself, with or without an assistive device, with no assistance from a helper. Needed Some Help: Patient needed partial assistance from another person to complete activities. Dependent: A helper completed the activities for the patient. Unknown: Not Applicable: ADL PLOF Comments Family states pt has had decreased balance and increased falls the two weeks prior to hospitalization. Was using a cane or walker for mobility. Family had been assisting with bathing and dressing secondary to decreased balance. Self Care: Needed Some Help Functional Cognition: Needed Some Help DME/Equipment: Grab Bars, Shower, Tall Toilet Occupation: retired Drive Self: No (hasn't driven for past 6 months) OT Current Status Subjective Pt agreeable to therapy this pm. No c/o pain. States he wants to get better so he can return home. Mental Status/Objective Patient Orientation: Person, Place Current Glasses/Contacts: Yes (reading glasses) Hearing Aids: Yes (hearing aide on left, cochlear implant on right) Dentures/Partials: No Hand Dominance: Right Upper Extremity ROM Grossly WFL Upper Extremity Coordination Intact Upper Extremity Sensation Intact per pt report ADL-Treatment ADL-Current Pt resting in bed. Supine to sit with SBA. Pt participated in UE assessment while seated EOB. Sit to stand with CGA. Gait to restroom with FWW. Pt slightly impulsive with mobility, requires cues for safety and walker use. Pt declined shower today, but agrees to ADLs seated at sink. Pt completed partial sponge bath. Doffed shirt without assist. Completed upper body bathing with SBA. Donned pullover shirt with SBA. Pt pulled pants down over hips and washed upper legs, liat area, and buttocks and pulled pants back up with CGA for balance. Pt donned socks with CGA for balance. Pt brushed teeth with SBA while seated. Transfer to toilet with CGA using grab bar for balance and safety. Pt able to complete toileting with min assist for balance during clothing management. Washed hands with CGA for balance while standing at sink. Pt fatigues with activity and requires occasional rest breaks throughout ADLs. Pt practiced mobility in room with FWW. Pt tends to move very quickly. Requires cues for safety and to control speed. Pt returned to EOB, completed sit to supine with SBA. Education provided regarding rehab expectations, role of OT, and plan of care. Pt states understand ing of education and is in agreement. Pt resting in bed with needs met and spouse and daughter present after session. Eating (FIM): 5 (set up by report) Eating (QC): 5 Oral Hygiene (QC): 5 Upper Body Dressing (FIM): 5 Upper Body Dressing (QC): 4 On/Off Footwear (QC): 4 Toileting (FIM): 4 Toileting Hygiene (QC): 3 Toilet/Commode Transfer (FIM): 4 Toilet Transfer (QC): 4 Education OT Patient Education: Rehab process Teaching Recipient: Patient Teaching Methods: Discussion Response to Teaching: Verbalize Understanding OT Short Term Goals Short Term Goals Time Frame: Apr 11, 2019 Lower Body Dressing(FIM): 5 Toileting(FIM): 5 Toilet/Commode Transfer(FIM): 5 Additional Short Term Goals: 1-Demonstrate ADL Tasks, 2-Verbalize Understanding, 3-ImproveStrength/Ronit 1=Demonstrate adherence to instructed precautions during ADL tasks. 2=Patient will verbalize/demonstrate understanding of assistive devices/modifications for ADL. 3=Patient will improve strength/tolerance for activity to enable patient to perform ADL's. OT Cadd Operator Goals Cadd Operator Goals Time Frame: Apr 25, 2019 Eating (FIM): 7 Eating (QC): 6 Groomin Oral Hygiene (QC): 6 Bathing(FIM): 5 Shower/Bathe Self (QC): 5 Upper Body Dressing(FIM): 6 Upper Body Dressing (QC): 6 Lower Body Dressing(FIM): 6 Lower Body Dressing (QC): 6 On/Off Footwear (QC): 6 Toileting(FIM): 6 Toileting Hygiene (QC): 6 Toilet/Commode Transfer(FIM): 6 Toilet/Commode Transfer (QC): 6 Shower Transfer(FIM): 5 Additional Goals: 1-Demonstrate ADL Tasks, 2-Verbalize Understanding, 3- ImproveStrength/Ronit 1=Demonstrate adherence to instructed precautions during ADL tasks. 2=Patient will verbalize/demonstrate understanding of assistive device s/modifications for ADL. 3=Patient will improve strength/tolerance for activity to enable patient to perform ADL's. Goals established to promote increased functional independence and allow safe discharge plan. OT Education/Plan Problem List/Assessment Assessment: Decreased Activ Tolerance, Decreased UE Strength, Dependent Transfers, Impaired Funct Balance, Impaired I ADL's, Impaired Self-Care Skills Pt demonstrates decreased ADL functioning, mobility, strength, and activity tolerance. Pt to benefit from skilled OT intervention for ADL training, transfers, strengthening, and home safety education to increase level of independence and allow safe discharge home with spouse. Discharge Recommendations Plan/Recommendations: Continue POC Treatment Plan/Plan of Care Treatment,Training & Education: Yes Patient would benefit from OT for education, treatment and training to promote independence in ADL's, mobility, safety and/or upper extremity function for ADL's. Plan of Care: ADL Retraining, Functional Mobility, UE Funct Exercise/Act Treatment Duration: Apr 25, 2019 Frequency: At least 5 of 7 days/Wk (IRF) Estimated Hrs Per Day: 1.5 hours per day Agreement: Yes Rehab Potential: Good Time/GCodes Start Time: 13:00 Stop Time: 14:30 Total Time Billed (hr/min): 90 Billed Treatment Time 1 visit, EVM(30minutes), ADLx4(60minutes) RICHIE MEJIA OT Apr 04, 2019 14:45
[2019-04-04] MEDS: SENNA W/DOCUSATE (SENOKOT S) TABLET PO SCH ×2 (15:41→20:42)
[2019-04-04 15:48] VITALS: BP 133/73
[2019-04-04] MEDS ORDERED: ACETAMINOPHEN 325 MG TABLET PO PRN (16:00)
[2019-04-04] MEDS ORDERED: NITROGLYCERIN 0.4 MG SL TABS BTL 25'S SL PRN (16:00)
[2019-04-04] MEDS ORDERED: ARTIFICAL TEARS 0.4 ML UNIT DOSE (REFRESH PLUS) OU PRN (16:15)
--- NOTE | 2019-04-04 16:32 | ST Cognitive Linguistic Eval ---
Speech Evaluation-General Medical Diagnosis Brain aneurysm Onset Date: Apr 04, 2019 Therapy Diagnosis Therapy Diagnosis: Cognitive-communication Precautions Precautions/Isolations: Fall Prevention, Standard Precautions Referral Referring Physician: Dr. Fernandez Medical History Pertinent Medical History: Arthritis, CABG, CAD, HTN Reviewed History: Yes Social History Current Living Status: Spouse Speech PLF-Current Status Prior Level of Function The patient lives at home with his where he was independent with most of his daily needs. Subjective The patient was compliant with the cognitive evaluation. Language Eval: Auditory Comprehends Simple Yes/No Ques: Functional Indent/Objects Multiple [place]: Functional Ident/Pics in Multiple [place]: Functional Follows 1-Step Commands: Functional Follows Complex Directions: Mild Follows General Conversations: Functional Language Eval: Verbal Language Completes Spontaneous Greeting: Functional Produces Auto, Serial Info: Functional Imitates Simple Words/Phrases: Functional Word Finding: Functional Requests Basic Needs: Functional States Basic Personal Info: Functional Expresses Complex Ideas: Mild Objective Cognitive Domain Attention: WNL Memory: Mild Problem Solving: Mild Executive Functions: Mild Visuospatial Skills: WNL Composite Severity Rating: Mild Clock Drawing Severity Rating: Mild Objective Formal/Standardized Tests [facility] Mental Status ([facility]) Results The patient scored 22/30 which 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 Oral Motor/Speech Production Within Normal Function, however the patient is very [place]. Impression The patient is a pleasant 84 year old male who was transferred to the ARU from s/p brain aneursym. He will be on the ARU for medical monitoring and strengthening in order to safely return home. The patient is noted to have deficits in the areas of memory and problem solving. He scored 22/30 on the UMS which places him at the MNCD functional level. The patient will receive skilled services for cognitive-communication skills with focus on safety and independence. Communication/Social Cognition Comprehension: 6 Expression: 6 Social Interaction: 7 Problem Solvin Memory: 5 Speech Patient Assess Expression of Ideas/Wants: Expression (4) Understanding Verbal Content: Understands (4) Brief Interview-Mental Status: Yes Repetition of Three Words: Three (3) Temporal Orientation: Year: Correct (3) Temporal Orientation: Day: Incorrect or No Answer(0) Recall : Wear to say "Sock": Yes,after cueing (1) Recall : Color: No, could not recall (0) Recall : Bed: No, could not recall (0) Memory/Recall Ability: Current season, That he or she is in a hsp/hsp unit Speech Short Term Goals Short Term Goals Short Term Goals 1) The patient will complete memory tasks with 90% or greater with minimal verbal cues. 2) The patient will complete problem solving tasks with 90% or greater with minimal verbal cues. 3) The patient will demonstrate following multi-step directions with 90% or greater with minimal verbal cues. Speech Long-Term Goals Online Merchandising Specialist Goals The patient will improve his safety and independence in order to return home saf tatyana. Speech-Plan Patient/Family Goals Patient/Family Goals: The patient plans to return home with his post rehab. Treatment Plan Speech Therapy Treatment Plan: Continue Plan of Care The patient will receive skilled cognitive therapy. Treatment Duration: Apr 13, 2019 Frequency: 5 times per week Estimated Hrs Per Day: .5 hour per day Rehab Potential: Good Barriers to Learning: The patient has mild cognitive deficits. Pt/Family Agrees to Plan: Yes Safety Risks/Education Teaching Recipient: Patient, Family Teaching Methods: Discussion Response to Teaching: Verbalize Understanding Education Topics Provided: Safety within his room and utilization of the call light as needed. Time Speech Therapy Time In: 15:50 Speech Therapy Time Out: 16:05 Total Billed Time: 15 Billed Treatment Time 1, SYLVIA Waggoner Apr 04, 2019 16:32
--- NOTE | 2019-04-04 16:40 | PM&R H&P / Post Admit Assess ---
History of Present Illness HPI/Chief Complaint CC: Debility HPI: HPI: This is a Pt of Dr. Butcher who presented after transfer from [facility] after an extensive hospital stay that included management of normal pressure hydrocephalus with vp & general counsel shunt placed and management of a large basilar aneurysm. He was found to have altered gate and multiple falls and hearing loss over the past year that worsened requiring cochlear implants and further evaluation of the disequilibrium and neurologist was evaluating the Pt to have the large Basilar aneurysm so he was sent to for further evaluation. 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 He is on Coumadin maintained on adequate dosing for stroke prophylaxis from the atrial fibrillation and he is s/p CYBER SECURITY ADMINISTRATOR shunts with no complication but management of the aneurysm throughout the weekend that resulted in improvement in the mobility and ambulation and will need fine tuning for safety prevention and fall prevention and ultimately return home with his to return to prior level of functioning. Dr. Butcher PCP will be consulted. He has not had a BM for 1 week so will initiate an aggressive regimen for that. At this current time he doesn't have any pain and he is very hard of hearing even with the cochlear implants. Source: patient, family, RN/MD, old records Exam Limitations: no limitations Date Seen 04/04/19 Time Seen by a Provider: 13:45 Attending Physician Deneen Fernandez DO PCP Lesley Butcher MD Referring Physician Date of Admission Apr 04, 2019 at 12:46 Home Medications & Allergies Home Medications Reviewed patient Home Medication Reconciliation performed by pharmacy medication reconciliations weatherization technician and/or nursing. Patients Allergies have been reviewed. Allergies Allergies Coded Allergies amoxicillin (Verified Allergy, Severe, RASH, 12/26/18) clavulanic acid (Verified Allergy, Severe, RASH, 12/26/18) Iodinated Contrast- Oral and IV Dye (Verified Allergy, Unknown, 12/26/18) Past Qecnqie-Msmawo-Hsblqt Hx Past Med/Social Hx: Reviewed Nursing Past Med/Soc Hx, Reviewed and Corrections made Patient Social History Marrital Status: Employed/Student: retired ([employer] business) Smoking Status: Former Smoker 2nd Hand Smoke Exposure: No Recent Foreign Travel: No Contact w/other who traveled: No Recent Hopitalizations: Yes (12/2018-DIVERTICULITIS/GI BLEED) Recent Infectious Disease Expo: No Immunizations Up To Date Date of Pneumonia Vaccine: Jun 11, 2017 Date of Influenza Vaccine: Jul 08, 2018 Seasonal Allergies Seasonal Allergies: Yes Past Medical History Surgeries: Coronary Stent, Gallbladder, Vascular Surgery CYBER SECURITY ADMINISTRATOR shunt 03/29/19, Respiratory: COPD, Sleep Apnea Currently Using CPAP: Yes Currently Using BIPAP: No Cardiac: Aneurysm, Atrial Fibrillation, Cardiomyopathy, Chronic Edema/Swelling, Coronary Artery Disease, High Cholesterol, Hypertension, Peripheral Vascular NPH, basilar aneurysm Reproductive: No Sexually Transmitted Disease: No HIV/AIDS: No Genitourinary: Kidney Stones Gastrointestinal: Abdominal Hernia, Diverticulosis Musculoskeletal: Arthritis Loss of Vision: Bilateral Hearing Impairment: Hard of Hearing, Hearing Aide Left History of Blood Disorders: No Adverse Reaction to Blood Severino: No (N/A) Family History Heart Disease, Hypertension Review of Systems Constitutional: see HPI, malaise, weakness EENTM: no symptoms reported Respiratory: no symptoms reported Cardiovascular: no symptoms reported Gastrointestinal: no symptoms reported Genitourinary: no symptoms reported Musculoskeletal: back pain Skin: no symptoms reported Psychiatric/Neurological: Numbness, Paresthesia, Weakness All Other Systems Reviewed Negative Unless Noted: Yes Physical Exam Exam Vital Signs Vital Signs Date Time Temp Pulse Resp B/P (MAP) Pulse Ox O2 Delivery O2 Flow Rate FiO2 04/04/19 20:40 72 144/80 (101) 04/04/19 20:11 95 Room Air 04/04/19 18:25 97.5 18 Capillary Refill : General Appearance: No Apparent Distress, WD/WN, Chronically ill, Obese HEENT: PERRL/EOMI, Normal ENT Inspection, Pharynx Normal, Moist Mucous Membranes Neck: Full Range of Motion, Normal Inspection, Non Tender, Supple Respiratory: Chest Non Tender, Lungs Clear, Normal Breath Sounds, No Accessory Muscle Use, No Respiratory Distress Cardiovascular: Regular Rate, Rhythm, No Edema, No Gallop, No JVD, No Murmur Gastrointestinal: Normal Bowel Sounds, No Organomegaly, No Pulsatile Mass, Non Tender, Soft Back: Normal Inspection, No CVA Tenderness, No Vertebral Tenderness Extremity: Normal Capillary Refill, Normal Inspection, Normal Range of Motion, Non Tender, No Calf Tenderness, No Pedal Edema Neurologic/Psychiatric: Alert, Oriented x3, No Motor/Sensory Deficits, Normal Mood/Affect, forge operator II-XII Norm as Tested, Abnormal Gait, Motor Weakness (lower legs 4/5) Skin: Normal Color, Warm/Dry Lymphatic: No Adenopathy Results Results/Procedures Labs Patient resulted labs reviewed. Assessment/Plan Assessment and Plan (1) Brain aneurysm (2) NPH (normal pressure hydrocephalus) (3) Intracranial shunt (4) Basilar artery aneurysm (5) Weakness (6) CAD (coronary artery disease) (7) PVD (peripheral vascular disease) (8) S/P AAA repair (9) Renal insufficiency (10) Renal lithiasis (11) Ischemic cardiomyopathy (12) Warfarin anticoagulation (13) COPD (chronic obstructive pulmonary disease) (14) SYL (obstructive sleep apnea) (15) Hx of CABG (16) Atrial fibrillation Post Admission Physician Asses Date seen by provider: Apr 04, 2019 Time seen by provider: 13:45 Admisison Dx: (1) Basilar artery aneurysm The preadmission screen agrees with the post admission assessment that the patient is a good candidate for inpatient rehabilitation. The patient will have a comprehensive program of inpatient rehabilitation with a goal of maximizing level of functional independence prior to discharge home with family. The patient will have PT/OT ninety minutes per day, each discipline, five days a week for gait, strengthening, conditioning, balance, ADLs, any patient/family/caregiver training as necessary. Speech therapy to do cognitive assessment and treat as indicated. Rehabilitation nursing to assist with bowel, bladder, skin, wound care, medication administration, pain management. Bronzer to assist with discharge planning, community reentry. SCD's for DVT prophylaxis. He appears to be well motivated to participate in three hours of therapy a day. He should be able to tolerate three hours of therapy a day from a medical standpoint. He should benefit from the three hours of therapy a day. He has a reasonable discharge plan, reasonable discharge rehabilitation goals and a supportive family. He has various comorbidities that need to be closely monitored with medications and treatments adjusted on a daily basis as needed. These include: see list Barriers to discharge for this patient who had been independent prior to this are for him to be modified independent to supervision for ADLs and mobility skills prior to discharge home with family, so as to lessen the burden of the caregivers. Risks for this patient include: 1. Fall 2. Fracture 3. DVT 4. Pulmonary embolism 5. Wound infection 6. Skin breakdown 7. Contractures 8. Poorly controlled pain 9. Urinary retention 10. UTI 11. Respiratory infection 12. Aspiration Estimated Length of Stay: 5-7 days Prognosis: Rehab prognosis appears good for goal of discharge home with family modified independent to supervision for ADLs and mobility skills. DENEEN FERNANDEZ DO Apr 04, 2019 16:40
[2019-04-04] MEDS ORDERED: DOCUSATE SODIUM 100 MG (COLACE) CAP PO PRN (16:45)
[2019-04-04] MEDS ORDERED: MELATONIN 3 MG TABLET PO PRN (16:45)
[2019-04-04] MEDS ORDERED: diphenhydrAMINE 25 MG TAB (BENADRYL) PO PRN (16:45)
[2019-04-04] MEDS ORDERED: FLEET ENEMA ADULT 1 EA BTL PR PRN ×2 (16:45→17:00)
[2019-04-04] MEDS ORDERED: ONDANSETRON 4 MG (ZOFRAN) ORAL DISSOLVE TAB PO PRN (16:45)
[2019-04-04] MEDS ORDERED: CALCIUM CARBONATE 500 MG (TUMS) TAB.CHEW PO PRN (16:45)
[2019-04-04] MEDS ORDERED: BISACODYL 10 MG SUPP (DULCOLAX) PR PRN (16:45)
[2019-04-04] MEDS ORDERED: LACTULOSE SYRUP 10GM/15ML (ENULOSE) 30ML UDC PO PRN (16:45)
--- NOTE | 2019-04-04 17:54 | NUR ---
Text sent to Dr. Butcher to notify of consult.
[2019-04-04] MEDS ORDERED: warFARin 3 MG (COUMADIN) TAB PO SCH (18:00)
[2019-04-04 18:25] VITALS: BP 133/73
--- NOTE | 2019-04-04 19:21 | NUR ---
Up to the BR. Patient reports large BM.
[2019-04-04 20:40] VITALS: BP 144/80
[2019-04-04] MEDS: TAMSULOSIN 0.4 MG (FLOMAX) CAP PO SCH (20:41)
[2019-04-04] MEDS: AMIODARONE 200 MG (CORDARONE) TAB PO SCH (20:41)
[2019-04-04] MEDS: rOPINIRole 0.25 MG (REQUIP) TAB PO SCH (20:42)
[2019-04-04] MEDS: ATORVASTATIN 80 MG (LIPITOR) TABLET PO SCH (20:42)
[2019-04-04] MEDS: POLYETHYLENE GLYCOL 17 GM (MIRALAX) PACK PO SCH (20:42)
[2019-04-04] MEDS: FLUTICASONE NASAL SPRAY (FLONASE) 16 GM BTL NS SCH (20:44)
[2019-04-05 04:31] LABS: BASOPHILS % (AUTO) 0 % (0-10); EOSINOPHILS # (AUTO) 0.3 10^3/uL (0.0-0.3); EOSINOPHILS % (AUTO) 4 % (0-10); HEMATOCRIT 35 % (40-54); HEMOGLOBIN 11.8 G/DL (13.3-17.7); LYMPHOCYTES # (AUTO) 1.4 X 10^3 (1.0-4.0); LYMPHOCYTES % (AUTO) 18 % (12-44); MEAN CORPUSCULAR HEMOGLOBIN 30 PG (25-34); MEAN CORPUSCULAR HGB CONC 33 G/DL (32-36); MEAN CORPUSCULAR VOLUME 91 FL (80-99); MEAN PLATELET VOLUME 9.5 FL (7.4-10.4); MONOCYTES # (AUTO) 0.6 X 10^3 (0.0-1.0); MONOCYTES % (AUTO) 8 % (0-12); NEUTROPHILS # (AUTO) 5.3 X 10^3 (1.8-7.8); NEUTROPHILS % (AUTO) 70 % (42-75); PLATELET COUNT 194 10^3/uL (130-400); RED CELL DISTRIBUTION WIDTH 14.4 % (10.0-14.5); WHITE BLOOD COUNT 7.6 10^3/uL (4.3-11.0)
[2019-04-05 04:41] LABS: PROTHROMBIN TIME PATIENT 13.9 SEC (12.2-14.7)
[2019-04-05 04:54] LABS: ALBUMIN 3.6 GM/DL (3.2-4.5); BILIRUBIN,TOTAL 1.2 MG/DL (0.1-1.0); CALCIUM 8.8 MG/DL (8.5-10.1); CREATININE SERUM 1.17 MG/DL (0.60-1.30); POTASSIUM 4.2 MMOL/L (3.6-5.0); TOTAL PROTEIN 5.8 GM/DL (6.4-8.2)
[2019-04-05 05:37] VITALS: BP 138/78
[2019-04-05] MEDS ORDERED: VITAMIN D3 1,000 UNITS (CHOLECALCIFEROL) TABLET PO SCH (09:00)
--- NOTE | 2019-04-05 09:05 | PM&R Progress Note ---
Subjective HPI/CC On Admission Date Seen by Provider: Apr 05, 2019 Time Seen by Provider: 08:45 CC: Debility HPI: HPI: This is a Pt of Dr. 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 He was found to have altered gate and multiple falls and hearing loss over the past year that worsened requiring cochlear implants and further evaluation of the disequilibrium and neurologist was evaluating the Pt to have the large Basilar aneurysm so he was sent to for further evaluation. 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 Dr. Butcher PCP will be consulted. He has not had a BM for 1 week so will initiate an aggressive regimen for that. At this current time he doesn't have any pain and he is very hard of hearing even with the cochlear implants. Subjective/Events-last exam Slum score was identified to be low so that is making him more impulsive and not aware of his limitations I counseled him with patient regarding the pace and taking it much slower to prevent falls Will inquire with regarding Lovenox at DC and whether we need to restart Coumadin at a higher dose to become therapeutic PCP Dr. Butcher will see the Pt in consultation Conferred with RN Reviewed therapy notes Review of Systems General: Fatigue Neurological: Weakness, Incoordination, Confusion Objective Exam Vital Signs Vital Signs Date Time Temp Pulse Resp B/P (MAP) Pulse Ox O2 Delivery O2 Flow Rate FiO2 04/05/19 18:29 99.3 61 20 127/78 (94) 95 Room Air Capillary Refill : General Appearance: No Apparent Distress, WD/WN, Chronically ill, Obese HEENT: PERRL/EOMI, Normal ENT Inspection, Pharynx Normal, Moist Mucous Membran es Neck: Full Range of Motion, Normal Inspection, Non Tender, Supple Respiratory: Chest Non Tender, Lungs Clear, Normal Breath Sounds, No Accessory Muscle Use, No Respiratory Distress Cardiovascular: Regular Rate, Rhythm, No Edema, No Gallop, No JVD, No Murmur Gastrointestinal: Normal Bowel Sounds, No Organomegaly, No Pulsatile Mass, Non Tender, Soft Back: Normal Inspection, No CVA Tenderness, No Vertebral Tenderness Extremity: Normal Capillary Refill, Normal Inspection, Normal Range of Motion, Non Tender, No Calf Tenderness, No Pedal Edema Neurologic/Psychiatric: Alert, Oriented x3, No Motor/Sensory Deficits, Normal Mood/Affect, logger all round II-XII Norm as Tested, Abnormal Gait, Motor Weakness (lower legs 4/5) Skin: Normal Color, Warm/Dry Lymphatic: No Adenopathy Results/Procedures Lab Laboratory Tests 04/05/19 04:05 Patient resulted labs reviewed. FIM Transfers Therapy Code Descriptions/Definitions Functional [place] Measure: 0=Not Assessed/NA 4=Minimal Assistance 1=Total Assistance 5=Supervision or Setup 2=Maximal Assistance 6=Modified [place] 3=Moderate Assistance 7=Complete [place] Therapy Quality Codes: 6 Independent with activity with or without an assistive device 5 Patient requires set up or clean up by helper. Patient completes activity by themselves 4 Supervision or touching assist (CGA). [place] provide cues , steadying assist 3 The helper provides less than half the effort to complete the activity 2 The helper provides more than half the effort to complete the activity 1 Dependent. The helper does all the effort to complete an activity 7 Patient refused to complete or attempt activity 9 The patient did not perform the activity before the current illness or injury 88 Not attempted due to Medical conditions or safety concerns Transfers (B, C, W/C) (FIM): 4 Roll Left to Right (QC): 4 Supine to/from Sit: 4 Sit to/from Stand: 4 Sit to Lying (QC): 4 Sit to Stand (QC): 4 Chair/Vum-ue-Drufs Xfer(QC): 4 Gait Training Does the Patient Walk?: Yes Gait (FIM): 4 Distance (FIM): 3=150 ft Walk 10 feet (QC): 4 Walk 50 ft with 2 Turns(QC): 4 Walk 150 ft (QC): 4 Walking 10ft/uneven surface-QC: 4 Gait Assistive Device: FWW Wheelchair Training Does the Pt Use a Wheelchair?: No Stair Training Stairs (FIM): 2 #of Steps: 4 1 Step (curb) (QC): 4 4 Steps (QC): 4 12 Steps (QC): 88 Level of Assist: 4 (CGA for safety) Balance Picking up an Object (QC): 88 Mental Status/Objective Comprehension: 6 Expression: 6 Social Interaction: 7 Problem Solvin Memory: 5 ADL-Treatment Feedin (set up by report) Eating (QC): 5 Oral Hygiene (QC): 5 Upper Extremity Dressin Upper Body Dressing (QC): 4 On/Off Footwear (QC): 4 Toiletin Toileting Hygiene (QC): 3 Toilet/Commode Transfer: 4 Toilet Transfer (QC): 4 Assessment/Plan Assessment and Plan Assess & Plan/Chief Complaint Assessment: (1) Brain aneurysm (2) NPH (normal pressure hydrocephalus) (3) Intracranial shunt (4) Basilar artery aneurysm (5) Weakness (6) CAD (coronary artery disease) (7) PVD (peripheral vascular disease) (8) S/P AAA repair (9) Renal insufficiency (10) Renal lithiasis (11) Ischemic cardiomyopathy (12) Warfarin anticoagulation (13) COPD (chronic obstructive pulmonary disease) (14) SYL (obstructive sleep apnea) (15) Hx of CABG (16) Atrial fibrillation (17) cognitive deficits Plan: Anticoagulation per PCP PT/OT per protocol Monitor cognition closely (1) Basilar artery aneurysm (2) Cognitive deficits (3) Intracranial shunt (4) Hx of CABG (5) S/P AAA repair (6) Warfarin anticoagulation (7) Renal lithiasis (8) Ischemic cardiomyopathy (9) Brain aneurysm (10) PVD (peripheral vascular disease) (11) Weakness (12) SYL (obstructive sleep apnea) (13) Renal insufficiency (14) NPH (normal pressure hydrocephalus) (15) CAD (coronary artery disease) (16) Atrial fibrillation (17) COPD (chronic obstructive pulmonary disease) SOLO MENDENHALL DO Apr 05, 2019 09:05
--- NOTE | 2019-04-05 09:07 | Individualized Plan of Care ---
Individualized Plan of Care Rehab Nursing IPOC Order Admission Date Apr 04, 2019 at 12:46 Current Orders Orders Admission Order(Inpt,Obs,Sdc) (04/04/19 12:24) Vital Signs: Per Unit Policy ( 08,16,00 (04/04/19 12:24) Implementation Analyst-Inpt Rehab Con (04/04/19 12:24) Rehab Nursing Orders-Ipoc (04/04/19 12:24) Physical Therapy Rehab Orders (04/04/19 12:24) Occupational Therapy Rehab Ord (04/04/19 12:24) Speech Therapy Rehab Orders (04/04/19 12:24) Intake & Output 06,14,22 (04/04/19 12:24) Precautions (Aru) (04/04/19 12:24) Weekly Weight (Lbs) WEEK (04/04/19 12:24) Rehab-Intensity Of Therapy (04/04/19 12:24) Initiate Admission Nursing Pro .admission (04/04/19 12:24) Nursing Communication (Order) (04/04/19 13:33) Follow-Up Appointment (04/04/19 13:36) General/Regular (04/04/19 Lunch) Senna S Tablet (Senokot S Tablet) (04/04/19 14:00) Bisacodyl Suppository (Dulcolax Supposit (04/04/19 14:00) Patient Visit (04/04/19 ) Pt Eval Moderate Complexity (04/04/19 ) Ambulate 08,12,20 (04/04/19 15:19) Sequential Compression Device ,20 (04/04/19 15:19) Dvt/Vte Risk - Notifiy Physici 08 (04/04/19 15:19) Acetaminophen Tablet/Caplet (Tylenol T (04/04/19 16:00) Amiodarone Tablet (Cordarone Tablet) (04/04/19 21:00) Aspirin Enteric Coated Tablet (Ecotrin T (04/05/19 09:00) Atorvastatin Tablet (Lipitor Tablet) (04/04/19 21:00) Cholecalciferol Capsule/Tablet (Vitamin (04/05/19 09:00) Therapeutic Multivitamin Tab (Vitamins, (04/05/19 09:00) Nitroglycerin 0.4 Mg Btl 25's (Nitrostat (04/04/19 16:00) Pantoprazole Tablet (Protonix Tablet) (04/05/19 09:00) Ropinirole Tablet (Requip Tablet) (04/04/19 21:00) Spironolactone Tablet (Aldactone Tablet) (04/05/19 09:00) Tamsulosin Capsule (Flomax Capsule) (04/04/19 21:00) Allopurinol Tablet (Zyloprim Tablet) (04/05/19 09:00) Carboxymethylcell Ophth Soln (Refresh Pl (04/04/19 16:15) Cholecalciferol Capsule/Tablet (Vitamin (04/05/19 09:00) Citalopram Tablet (Celexa Tablet) (04/05/19 09:00) Loratadine Tablet (Claritin Tablet) (04/05/19 09:00) Fluticasone Nasal [place] (Flonase Nasal S (04/04/19 21:00) Heparin Injection (Heparin Injection) (04/04/19 16:00) Losartan Tablet (Cozaar Tablet) (04/05/19 09:00) Consult Family Medicine (04/04/19 15:51) Cbc With Automated Diff (04/05/19 06:00) Comprehensive Metabolic Panel (04/05/19 06:00) Protime With Inr (04/05/19 06:00) Warfarin Tablet (Coumadin Tablet) (04/04/19 18:00) Patient Visit (04/04/19 ) Functional Activities, Ea 15 (04/04/19 ) Exercise Therap, Ea 15 Min (04/04/19 ) Calcium Carbonate Chew Tablet (Antacid C (04/04/19 16:45) Diphenhydramine Tablet (Benadryl Tablet) (04/04/19 16:45) Docusate Sodium Capsule (Colace Capsule) (04/04/19 16:45) Na Phos/Na Biphos Enema (Fleet Enema Earle (04/04/19 16:45) Melatonin Tablet (Melatonin Tablet) (04/04/19 16:45) Polyethylene Glycol Powder Pkt (Miralax (04/04/19 21:00) Ondansetron Oral Dissolve Tab (Zofran (04/04/19 16:45) Lactulose Oral Solution (Enulose Oral So (04/04/19 16:45) Bisacodyl Suppository (Dulcolax Supposit (04/04/19 16:45) Patient Visit (04/04/19 ) Speech Sound Lang Comp (04/04/19 ) Enoxaparin Injection (Lovenox Injection) (04/05/19 09:00) Patient Visit (04/05/19 ) Treat. Speech/Lang/Voice (04/05/19 ) Patient Visit (04/05/19 ) Functional Activities, Ea 15 (04/05/19 ) Exercise Therap, Ea 15 Min (04/05/19 ) Nursing Communication (Order) (04/05/19 19:08) Rehab Nursing Orders: Ongoing Assess. of Cognitive Status, Ongoing Assess. of Function Status, Bladder Management, Bladder Training, Disease Management & Educaiton, DVT Prophylaxis, Fall Prevention, Fluid/Electrolyte/Nutrition Mgmt, Infection Prevention, Medication Management & Education, Management of Risks & Complications, Management of Skin Intergrity, Nutrition Management, Pain Management, Patient/Family Support, Safety Management Intensity of Therapy to be met Patient to be seen: Min.3h per day/5 of 7d PT IPOC Problem List: Activity Tolerance, Functional Strength, Safety, Balance, Gait, Transfer, Bed Mobility Treatment Plan: Continue Plan of Care Bed Mobility, Education, Functional Activity Ronit, Functional Strength, Group Therapy, Gait, Safety, Therapeutic Exercise, Transfers Treatment Duration: Apr 18, 2019 Frequency: At least 5 of 7 days/Wk (IRF) Estimated Hrs Per Day: 1.5 hours per day OT IPOC Problems: Decreased Activ Tolerance, Decreased UE Strength, Dependent Transfers, Impaired Funct Balance, Impaired I ADL's, Impaired Self-Care Skills OT Treatment, Training and Edu: Yes OT Problems Pt demonstrates decreased ADL functioning, mobility, strength, and activity tolerance. Pt to benefit from skilled OT intervention for ADL training, transfers, strengthening, and home safety education to increase level of independence and allow safe discharge home with spouse. Plan of Care: ADL Retraining, Functional Mobility, UE Funct Exercise/Act Treatment Duration: Apr 25, 2019 Frequency: At least 5 of 7 days/Wk (IRF) Estimated Hrs Per Day: 1.[address] IPOC Speech Therapy Treatment Plan: Continue Plan of Care Treatment Duration: Apr 13, 2019 Frequency: 5 times per week Estimated Hrs Per Day: .5 hour per day Implementation Analyst/Case Mgmt Implementation Analyst/Case Managemen: Discharge Planning Dietitian/Manager Compliance Dietitian/Manager Compliance to monitor nutritional status and make changes and/or recommendations as needed and work with speech pathology on dietary upgrades as the occur. Physician IPOC Medical Issues being managed closely and that require the 24 hour availability of a physician: Labile BP and cognition issues along with anticoagulation will require close monitoring from physician Medical Issues: Bowel/Bladder Function, DVT Prophylaxis, Falls Precautions, Fluid/Electrolyte/Nutrition Balance, Pain Management Brief Synthesis of Preadmission Screen, Post-Admission Evaluation, and Therapy Evaluations: PT will focus on ambulation with safety precautions and fall prevention OT will focus on ADL independence ST will work to improve cognition Medical Prognosis: Good Anticipated Length of Stay: 7 days SOLO MENDENHALL DO Apr 05, 2019 09:07
--- NOTE | 2019-04-05 09:27 | Physical Therapy Daily Note ---
PT Daily Note-Current Subjective Agrees to PT. Reports he does not sleep well in the hospital. No complaints of pain. Mental Status Patient Orientation: Person, Place, Time, Situation Decreased safety awareness and is impulsive at times. Chair alarm activated post treatment. Transfers Therapy Code Descriptions/Definitions Functional [place] Measure: 0=Not Assessed/NA 4=Minimal Assistance 1=Total Assistance 5=Supervision or Setup 2=Maximal Assistance 6=Modified [place] 3=Moderate Assistance 7=Complete [place] Therapy Quality Codes: 6 Independent with activity with or without an assistive device 5 Patient requires set up or clean up by helper. Patient completes activity by themselves 4 Supervision or touching assist (CGA). [place] provide cues , steadying assist 3 The helper provides less than half the effort to complete the activity 2 The helper provides more than half the effort to complete the activity 1 Dependent. The helper does all the effort to complete an activity 7 Patient refused to complete or attempt activity 9 The patient did not perform the activity before the current illness or injury 88 Not attempted due to Medical conditions or safety concerns Transfers (B, C, W/C) (FIM): 4 (CGA at times for safety with skilled cues for hand placement and sequencing.) Sit to/from Stand: 4 Education ;on importance of hand placement with transfers as well as squaring to the chair before sitting. Pt tends to abandon his walker before sitting and has impaired safety judgment with the transition. Gait Training Does the Patient Walk?: Yes Gait (FIM): 4 Distance (FIM): 3=150 ft Distance: >300 ft Gait Assistive Device: FWW CGA for safety with 1-2 LOB epidsodes that required rigid assist to recover. Pt tends to walk fast and takes short steps; at times, does not avoid obstacles safely. heavy cues to slow down and take larger steps. Pt walked in and outdoors with multiple obstacles and turns. Outdoors, walked up/down a slope, boardwalk and grassy surface all with CGA and cues for safety. Pt requires safety awareness reminders to complete safely. Stair Training Stair Training: Handrails/: 2 handrails Up/down 3 steps outdoors with handrail with CGA and cues for speed (slow down); up and down indoor steps for 12 steps. Reciprocal gait pattern and he completed in a safer fashion,. Exercises Standing: Hamstring curls, Heel/toe raises, 3 way Ex=Flex, Abd, Ext, Marching Standing Reps: 15 (to improve LE strength and dynamic balance for safety with gait) Treatments Focus on high level mobility and balance paired with safety education and training. Assessment Current Status: Good Progress Pt is impulsive at times and seems to be in a hurry. I feel part of this is impaired safety awareness and part of this is him trying to do more or extra to get better quicker; his personality is such that he has always been very active and slowing down is not in his personality nature. He verbalized understanding of need to slow down and noted he will focus on this at following sessions. PT Short Term Goals Short Term Goals Time Frame: Apr 11, 2019 Transfers (B,C,W/C) (FIM): 5 Gait (FIM): 5 PT Appliance Repairer Goals Alf Goals PT Appliance Repairer Goals Time Frame: Apr 18, 2019 Transfers (B,C,W/C) (FIM): 7 Sit to Lying (QC): 6 Lying-Sitting on Side/Bed(QC): 6 Sit to Stand (QC): 6 Roll Left to Right (QC): 6 Chair/Gua-ng-Smusd Xfer(QC): 6 Car Transfer (QC): 6 Does the Patient Walk: Yes Gait (FIM): 6 Gait distance (FIM): 3=150 ft Walk 10 feet (QC): 6 Walk 10ft-Uneven Surface(QC): 6 Walk 50ft with 2 Turns (QC): 6 Walk 150 ft (QC): 6 Gait Assistive Device: FWW Does the Pt use WC or Scooter?: No Stairs (FIM): 6 # of Steps: 12 1 Step (curb) (QC): 6 4 Steps (QC): 6 12 Steps (QC): 6 Picking up an Object (QC): 88 PT Plan Problem List Problem List: Activity Tolerance, Functional Strength, Safety, Balance, Gait, Transfer Treatment/Plan Treatment Plan: Continue Plan of Care Treatment Plan: Bed Mobility, Education, Functional Activity Ronit, Functional Strength, Group Therapy, Gait, Safety, Therapeutic Exercise, Transfers Treatment Duration: Apr 18, 2019 Frequency: At least 5 of 7 days/Wk (IRF) Estimated Hrs Per Day: 1.5 hours per day Patient and/or Family Agrees t: Yes Safety Risks/Education Patient Education: Transfer Techniques, Safety Issues Teaching Recipient: Patient Teaching Methods: Demonstration, Discussion Response to Teaching: Verbalize Understanding, Reinforcement Needed Much discussion and education on safety awareness and slowing down for safe gait and transfers. Time/GCodes Time In: 815 Time Out: 916 Total Billed Treatment Time: 61 Total Billed Treatment visit EX 20 FA 41 LUBA SALAS PT Apr 05, 2019 09:27
--- NOTE | 2019-04-05 09:34 | NUR ---
Discharge orders from state to continue Coumadin 3 MG tablets... "take 3 tabs by mouth daily". Also states, "do not resume until discussed with Dr. Weber at your F/U appointment". Dr. Fernandez notified this AM with orders to clarify with . Call to Neurology to clarify. Message left. Will await return call.
[2019-04-05 09:41] VITALS: BP 108/67
[2019-04-05] MEDS: PANTOPRAZOLE 40 MG (PROTONIX) TAB PO SCH (09:50)
[2019-04-05] MEDS: ALLOPURINOL 100 MG (ZYLOPRIM) TAB PO SCH (09:51)
[2019-04-05] MEDS: SENNA W/DOCUSATE (SENOKOT S) TABLET PO SCH ×2 (09:51→21:28)
[2019-04-05] MEDS: LOSARTAN 50 MG (COZAAR) TAB PO SCH (09:51)
[2019-04-05] MEDS: LORATADINE (CLARITIN) 10 MG TAB PO SCH (09:51)
[2019-04-05] MEDS: SPIRONOLACTONE 25 MG (ALDACTONE) TAB PO SCH (09:51)
[2019-04-05] MEDS: ASPIRIN E.C. 325 MG (ECOTRIN) TABLET PO SCH (09:52)
[2019-04-05] MEDS: MULTIVIT W/MINERALS TAB (THERAGRAN M) PO SCH (09:52)
[2019-04-05] MEDS: AMIODARONE 200 MG (CORDARONE) TAB PO SCH ×3 (09:52→21:28)
[2019-04-05] MEDS: POLYETHYLENE GLYCOL 17 GM (MIRALAX) PACK PO SCH ×2 (09:52→21:29)
[2019-04-05] MEDS: ENOXAPARIN 100 MG/1 ML (LOVENOX) SYR SC SCH ×2 (09:53→21:28)
[2019-04-05] MEDS: VITAMIN D3 5,000 UNITS (CHOLECALCIFEROL ) CAPSULE PO SCH (09:59)
--- NOTE | 2019-04-05 09:59 | NUR ---
[address] Fernandez notified with orders to clarify with Dr. Butcher. Message left with spa receptionist. Will wait for clarification to give.
--- NOTE | 2019-04-05 11:54 | NUR ---
CHIEF LIBRARIAN MUSIC DEPARTMENT met with patient and spouse to complete initial assessment. As patient is hard of hearing, patient requested CHIEF LIBRARIAN MUSIC DEPARTMENT obtained assessment information from , Jackelin. Patient admitted to ARU from following brain aneurysm. Prior to hospitalization patient and spouse resided in a one level home in [place], [place]. The home has 2 steps at the entrance without railing and 2 steps inside the home. Prior to surgery, spouse reports patient has had challenges with balance for approximately the last year and has became progressively weaker within the last 6 months. Within the last 2 months, patient has required mod assist for all ADLs and utilized a walker for ambulation. Patient also possesses a cane. The home is equipped with a walk in shower, grab bars and tall toilets. PCP identified as Dr. Lesley BHATT and neurologist is Dr. Weber at . Primary contact identified as spouse, Jackelin at [phone] and daughter Dori at [phone]. Daughter Dori, works full time babysitter; however, has significantly assisted as needed. Insurance verified as Medicare and [employer] Medicare supplement with prescription coverage and preferred pharmacy as [facility]. CHIEF LIBRARIAN MUSIC DEPARTMENT reviewed typical ARU length of stay, although patient is eager to discharge as soon as possible, spouse expresses concerns and is hopeful that ARU stay will at least be one week to improve impulsivity, balance and completion of adl's. Patient is scheduled to have a follow-up with neurology on 04/12, CHIEF LIBRARIAN MUSIC DEPARTMENT will discuss the need to attend appt vs reschedule with Dr. Fernandez. CHIEF LIBRARIAN MUSIC DEPARTMENT will continue to follow.
--- NOTE | 2019-04-05 11:58 | Speech Therapy Daily Note ---
Speech Daily Progress Note Subjective Date Seen by Provider: Apr 05, 2019 Time Seen by Provider: 00:30 The patient was pleasant and participated well with therapy. His was present for the entire session. Objective The patient completed problem solving tasks with 75% accuracy given moderate verbal cues and/or repetitions. Assessment Assessment Current Status: Good Progress Treatment Plan Continue Plan of Care Communication Comprehension: 6 Expression: 6 Social Cognition Social Interaction: 7 Problem Solvin Memory: 5 Speech Short Term Goals Short Term Goals Short Term Goals 1) The patient will complete memory tasks with 90% or greater with minimal verbal cues. 2) The patient will complete problem solving tasks with 90% or greater with minimal verbal cues. 3) The patient will demonstrate following multi-step directions with 90% or greater with minimal verbal cues. Speech Railroad Brake Repairer Goals Fdc Goals The patient will improve his safety and independence in order to return home safely. Speech-Plan Patient/Family Goals Patient/Family Goals: The patient plans on returning home where he lives with his post rehab. Treatment Plan Speech Therapy Treatment Plan: Continue Plan of Care The patient participated well with skilled cognitive therapy. Treatment Duration: Apr 13, 2019 Frequency: 5 times per week Estimated Hrs Per Day: .5 hour per day Rehab Potential: Good Barriers to Learning: Patient has mild cognitive deficits, very [place] Pt/Family Agrees to Plan: Yes Safety Risks/Education Teaching Recipient: Family, Significant Other Teaching Methods: Demonstration, Discussion Response to Teaching: Verbalize Understanding, Return Demonstration Education Topics Provided: Continued safety and procedures in his room. Time Speech Therapy Time In: 10:00 Speech Therapy Time Out: 10:30 Total Billed Time: 30 Billed Treatment Time 1, SYLVIA [place] Apr 05, 2019 11:58
--- NOTE | 2019-04-05 13:00 | Occupational Ther Daily Note ---
OT Current Status-Daily Note Subjective No pain reported. Appearance Pt. in bed. Agrees to work with OT. Mental Status/Objective Patient Orientation: Person, Place Therapy Code Descriptions/Definitions Functional [place] Measure: 0=Not Assessed/NA 4=Minimal Assistance 1=Total Assistance 5=Supervision or Setup 2=Maximal Assistance 6=Modified [place] 3=Moderate Assistance 7=Complete [place] Pt. very BISHOP [place]. ADL-Treatment Therapy Code Descriptions/Definitions Functional [place] Measure: 0=Not Assessed/NA 4=Minimal Assistance 1=Total Assistance 5=Supervision or Setup 2=Maximal Assistance 6=Modified [place] 3=Moderate Assistance 7=Complete [place] Therapy Quality Codes: 6 Independent with activity with or without an assistive device 5 Patient requires set up or clean up by helper. Patient completes activity by themselves 4 Supervision or touching assist (CGA). [place] provide cues , steadying assist 3 The helper provides less than half the effort to complete the activity 2 The helper provides more than half the effort to complete the activity 1 Dependent. The helper does all the effort to complete an activity 7 Patient refused to complete or attempt activity 9 The patient did not perform the activity before the current illness or injury 88 Not attempted due to Medical conditions or safety concerns Grooming (FIM): 5 (Set up at sink to brush hair seated in chair.) Oral Hygiene (QC): 5 Bathing (FIM): 4 (CGA at times in stance to wash all parts.) Shower/Bathe Self (QC): 4 Upper Body (FIM): 5 Upper Body Dressing (QC): 4 Lower Body Dressing (FIM): 4 (CGA at times seated while bending over.) Lower Body Dressing (QC): 4 On/Off Footwear (QC): 4 Toileting (FIM): 5 Toileting Hygiene (QC): 4 Transfers (B, C, W/C) (FIM): 4 (CGA in stance and with ambulation.) Toilet/Commode Transfer (FIM): 4 Toilet Transfer (QC): 4 Shower Transfer(FIM): 4 Other Treatment Noted that pt. bends over to tie shoes, pull on pants, socks, etc. Noted that he has some LOB seated. Due to this, and recent surgery, it was recommended to pt. to use AE for this so that he does not have to bend over. Pt. practiced doffing/donning shoes and socks with AE, and then OT put elastic laces in shoes. Pt. states that this is easier. Completed 10 minutes on armbike at min resistance to work on overall strength and endurance. Tolerated this well. All needs met back in room. Education OT Patient Education: Correct positioning, Exercise program, Modified ADL techniques, Progress toward Goal/Update tx plan, Purpose of tx/functional activities, Reviewed precautions, Rehab process, Transfer techniques, Use of adapted equipment Teaching Recipient: Patient Teaching Methods: Demonstration, Discussion Response to Teaching: Verbalize Understanding, Return Demonstration OT Short Term Goals Short Term Goals Time Frame: Apr 11, 2019 Lower Body Dressing(FIM): 5 Toileting(FIM): 5 Transfers (B,C,W/C) (FIM): 5 Toilet/Commode Transfer(FIM): 5 Additional Short Term Goals: 1-Demonstrate ADL Tasks, 2-Verbalize Understanding, 3-ImproveStrength/Ronit 1=Demonstrate adherence to instructed precautions during ADL tasks. 2=Patient will verbalize/demonstrate understanding of assistive devices/modifications for ADL. 3=Patient will improve strength/tolerance for activity to enable patient to perform ADL's. OT Alf Goals Alf Goals Time Frame: Apr 25, 2019 Eating (FIM): 7 Eating (QC): 6 Groomin Oral Hygiene (QC): 6 Bathing(FIM): 5 Shower/Bathe Self (QC): 5 Upper Body Dressing(FIM): 6 Upper Body Dressing (QC): 6 Lower Body Dressing(FIM): 6 Lower Body Dressing (QC): 6 On/Off Footwear (QC): 6 Toileting(FIM): 6 Toileting Hygiene (QC): 6 Toilet/Commode Transfer(FIM): 6 Toilet/Commode Transfer (QC): 6 Shower Transfer(FIM): 5 Additional Goals: 1-Demonstrate ADL Tasks, 2-Verbalize Understanding, 3- ImproveStrength/Ronit 1=Demonstrate adherence to instructed precautions during ADL tasks. 2=Patient will verbalize/demonstrate understanding of assistive devices/modifications for ADL. 3=Patient will improve strength/tolerance for activity to enable patient to perform ADL's. OT Education/Plan Problem List/Assessment Assessment: Decreased Activ Tolerance, Impaired I ADL's, Impaired Self-Care Skills Pt demonstrates decreased ADL functioning, mobility, strength, and activity tolerance. Pt to benefit from skilled OT intervention for ADL training, transfers, strengthening, and home safety education to increase level of independence and allow safe discharge home with spouse. Discharge Recommendations Plan/Recommendations: Continue POC Therapy D/C Recommendations: Home w/ Family Support, Occupational Therapy Home Care Equpiment Recommendations-D/C: Hip Kit Treatment Plan/Plan of Care Treatment,Training & Education: Yes Patient would benefit from OT for education, treatment and training to promote independence in ADL's, mobility, safety and/or upper extremity function for ADL's. Plan of Care: ADL Retraining, Functional Mobility, UE Funct Exercise/Act Treatment Duration: Apr 25, 2019 Frequency: At least 5 of 7 days/Wk (IRF) Estimated Hrs Per Day: 1.5 hours per day Agreement: Yes Rehab Potential: Good Time/GCodes Start Time: 11:10 Stop Time: 12:10 Total Time Billed (hr/min): 60 Billed Treatment Time 1, ADL x 45minutes, Ex x 15minutes MERNA BRANCH OT Apr 05, 2019 13:00
--- NOTE | 2019-04-05 13:21 | Occupational Ther Daily Note ---
OT Current Status-Daily Note Subjective No pain reported. Appearance Pt. in bed. Agrees to work with OT. Mental Status/Objective Patient Orientation: Person, Place Therapy Code Descriptions/Definitions Functional [place] Measure: 0=Not Assessed/NA 4=Minimal Assistance 1=Total Assistance 5=Supervision or Setup 2=Maximal Assistance 6=Modified [place] 3=Moderate Assistance 7=Complete [place] ADL-Treatment Therapy Code Descriptions/Definitions Functional [place] Measure: 0=Not Assessed/NA 4=Minimal Assistance 1=Total Assistance 5=Supervision or Setup 2=Maximal Assistance 6=Modified [place] 3=Moderate Assistance 7=Complete [place] Therapy Quality Codes: 6 Independent with activity with or without an assistive device 5 Patient requires set up or clean up by helper. Patient completes activity by themselves 4 Supervision or touching assist (CGA). [place] provide cues , steadying assist 3 The helper provides less than half the effort to complete the activity 2 The helper provides more than half the effort to complete the activity 1 Dependent. The helper does all the effort to complete an activity 7 Patient refused to complete or attempt activity 9 The patient did not perform the activity before the current illness or injury 88 Not attempted due to Medical conditions or safety concerns Transfers (B, C, W/C) (FIM): 5 (Pt. able to transfer supine-sit and ambulate with walker to therapy gym. Tolerated with SBA.) Pt. ambulated to therapy gym. Completed overhead balloon bat approximately 5 minutes to work on endurance and strength. Good shoulder ROM noted. Pt. then tolerated 3 lb. dumbbells x 6 exercises, x 10 reps in all planes. Tolerated this well with no difficulty. All needs met and PT took over treatment. Education OT Patient Education: Correct positioning, Exercise program, Progress toward Goal/Update tx plan, Purpose of tx/functional activities, Reviewed precautions, Rehab process, Transfer techniques Teaching Recipient: Patient Teaching Methods: Demonstration Response to Teaching: Verbalize Understanding, Return Demonstration OT Short Term Goals Short Term Goals Time Frame: Apr 11, 2019 Lower Body Dressing(FIM): 5 Toileting(FIM): 5 Transfers (B,C,W/C) (FIM): 5 Toilet/Commode Transfer(FIM): 5 Additional Short Term Goals: 1-Demonstrate ADL Tasks, 2-Verbalize Understan ding, 3-ImproveStrength/Ronit 1=Demonstrate adherence to instructed precautions during ADL tasks. 2=Patient will verbalize/demonstrate understanding of assistive devices/modifications for ADL. 3=Patient will improve strength/tolerance for activity to enable patient to perform ADL's. OT Skilled Nursing Goals Skilled Nursing Goals Time Frame: Apr 25, 2019 Eating (FIM): 7 Eating (QC): 6 Groomin Oral Hygiene (QC): 6 Bathing(FIM): 5 Shower/Bathe Self (QC): 5 Upper Body Dressing(FIM): 6 Upper Body Dressing (QC): 6 Lower Body Dressing(FIM): 6 Lower Body Dressing (QC): 6 On/Off Footwear (QC): 6 Toileting(FIM): 6 Toileting Hygiene (QC): 6 Toilet/Commode Transfer(FIM): 6 Toilet/Commode Transfer (QC): 6 Shower Transfer(FIM): 5 Additional Goals: 1-Demonstrate ADL Tasks, 2-Verbalize Understanding, 3- ImproveStrength/Ronit 1=Demonstrate adherence to instructed precautions during ADL tasks. 2=Patient will verbalize/demonstrate understanding of assistive devices/modifications for ADL. 3=Patient will improve strength/tolerance for activity to enable patient to perform ADL's. OT Education/Plan Problem List/Assessment Assessment: Decreased Activ Tolerance, Impaired I ADL's, Impaired Self-Care Skills Pt demonstrates decreased ADL functioning, mobility, strength, and activity tolerance. Pt to benefit from skilled OT intervention for ADL training, transfers, strengthening, and home safety education to increase level of independence and allow safe discharge home with spouse. Discharge Recommendations Plan/Recommendations: Continue POC Therapy D/C Recommendations: Home w/ Family Support, Occupational Therapy Home Care Treatment Plan/Plan of Care Treatment,Training & Education: Yes Patient would benefit from OT for education, treatment and training to promote independence in ADL's, mobility, safety and/or upper extremity function for ADL's. Plan of Care: ADL Retraining, Functional Mobility, UE Funct Exercise/Act Treatment Duration: Apr 25, 2019 Frequency: At least 5 of 7 days/Wk (IRF) Estimated Hrs Per Day: 1.5 hours per day Agreement: Yes Rehab Potential: Good Time/GCodes Start Time: 13:00 Stop Time: 13:15 Total Time Billed (hr/min): 15 Billed Treatment Time 1, Ex MERNA BRANCH OT Apr 05, 2019 13:21
--- NOTE | 2019-04-05 14:08 | Physical Therapy Daily Note ---
PT Daily Note-Current Subjective Agrees to PT. Wants to nap after therapy as he did not sleep well last night. Transfers Therapy Code Descriptions/Definitions Functional [place] Measure: 0=Not Assessed/NA 4=Minimal Assistance 1=Total Assistance 5=Supervision or Setup 2=Maximal Assistance 6=Modified [place] 3=Moderate Assistance 7=Complete [place] Therapy Quality Codes: 6 Independent with activity with or without an assistive device 5 Patient requires set up or clean up by helper. Patient completes activity by themselves 4 Supervision or touching assist (CGA). [place] provide cues , steadying assist 3 The helper provides less than half the effort to complete the activity 2 The helper provides more than half the effort to complete the activity 1 Dependent. The helper does all the effort to complete an activity 7 Patient refused to complete or attempt activity 9 The patient did not perform the activity before the current illness or injury 88 Not attempted due to Medical conditions or safety concerns Treatments Pt rode the nu step x 15 minutes to promote LE strength and rfunctional activity tolerance. Pt then ambulated x 200 ft with FWW with cues for safety. Pt in bed post treatment with needs met and bed alarm set. Assessment Current Status: Good Progress Pt's gait was improved this afternoon and he was less impulsive. PT Short Term Goals Short Term Goals Time Frame: Apr 11, 2019 Transfers (B,C,W/C) (FIM): 5 Gait (FIM): 5 PT Chcf Goals Construction Accountant Goals PT Construction Accountant Goals Time Frame: Apr 18, 2019 Transfers (B,C,W/C) (FIM): 7 Sit to Lying (QC): 6 Lying-Sitting on Side/Bed(QC): 6 Sit to Stand (QC): 6 Roll Left to Right (QC): 6 Chair/[id number]-Amqnt Xfer(QC): 6 Car Transfer (QC): 6 Does the Patient Walk: Yes Gait (FIM): 6 Gait distance (FIM): 3=150 ft Walk 10 feet (QC): 6 Walk 10ft-Uneven Surface(QC): 6 Walk 50ft with 2 Turns (QC): 6 Walk 150 ft (QC): 6 Gait Assistive Device: FWW Does the Pt use WC or Scooter?: No Stairs (FIM): 6 # of Steps: 12 1 Step (curb) (QC): 6 4 Steps (QC): 6 12 Steps (QC): 6 Picking up an Object (QC): 88 PT Plan Problem List Problem List: Activity Tolerance, Functional Strength, Safety Treatment/Plan Treatment Plan: Continue Plan of Care Treatment Plan: Bed Mobility, Education, Functional Activity Ronit, Functional Strength, Group Therapy, Gait, Safety, Therapeutic Exercise, Transfers Treatment Duration: Apr 18, 2019 Frequency: At least 5 of 7 days/Wk (IRF) Estimated Hrs Per Day: 1.5 hours per day Patient and/or Family Agrees t: Yes Safety Risks/Education Patient Education: Gait Training Teaching Recipient: Patient Teaching Methods: Discussion Response to Teaching: Reinforcement Needed Time/GCodes Time In: 1310 Time Out: 1330 Total Billed Treatment Time: 20 Total Billed Treatment visit EX 15 GT 5 LUBA SALAS PT Apr 05, 2019 14:08
--- NOTE | 2019-04-05 16:39 | NUR ---
Attempted to call Dr. Weber again for clarification on Coumdain. Message left again and Dr. Fernandez notified. Orders to hold Coumadin and have Dr. Butcher contact Dr. Weber.
--- NOTE | 2019-04-05 17:26 | NUR ---
Dr. Butcher here to see patient.
--- NOTE | 2019-04-05 17:29 | NUR ---
Per Dr. Butcher, continue to hold Coumadin. Continue with Lovenox and ASA.
[2019-04-05 18:29] VITALS: BP 127/78
--- NOTE | 2019-04-05 18:59 | Consultation ---
History of Present Illness History of Present Illness Patient Consulted On(char/time) 04/05/19 18:52 Date Seen by Provider: Apr 05, 2019 Time Seen by Provider: 18:00 Reason for Visit: POST-HAND PLUG SHAPER SHUNT WEAKNESS History of Present Illness PT IS AN 84 Y/O MALE WHO IS KNOWN TO ME FROM CLINIC. ANA HAS HAD PROGRESSIVE WEAKNESS SINCE HIS COCHLEAR IMPLANT SURGERY LAST YEAR. HE WAS APPARENTLY IN HIS YARD WALKING AROUND, BECAME WEAK AND FELL TRYING TO STOP HIMSELF BY GRABBING ONTO A TREE BRANCH. HE WAS FOUND DOWN ON THE GROUND BY HIS AND HIS GRANDDAUGHTER AND [id number] WHO TRANSPORTED HIM TO THE HOSPITAL FOR EVALUATION DUE TO HIS FALL AND WEAKNESS. HE IS ON CHRONIC BLOOD THINNER THERAPY DUE TO ATRIAL FIBRILLATION AND THEY WERE WORRIED ABOUT BLEEDING IN HIS BRAIN. 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 HE WAS SEEN BY DR. 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 HE HAD THE PROCEDURE AND THEY ARE SCHEDULED TO GO BACK TO [facility] FOR A PLAN FOR TREATMENT OF THE ANEURYSM NEXT WEEK WITH DR. FARIAS - THEY ARE GOING TO TALK ABOUT HIS ANEURYSM WHEN HE GOES FOR HIS HAND PLUG SHAPER SHUNT FOLLOW-UP. Allergies and Home Medications Allergies Coded Allergies: amoxicillin (Verified Allergy, Severe, RASH, 12/26/18) clavulanic acid (Verified Allergy, Severe, RASH, 12/26/18) Iodinated Contrast- Oral and IV Dye (Verified Allergy, Unknown, 12/26/18) Home Medications Acetaminophen 325 Mg Tablet, 650 MG PO Q6H PRN for PAIN-MILD, (Reported) TAKES 2 (325MG) TABLETS Allopurinol 100 Mg Tablet, 100 MG PO DAILY, (Reported) Amiodarone HCl 200 Mg Tablet, 200 MG PO TID, (Reported) Aspirin 325 Mg Tablet., 325 MG PO DAILY, (Reported) Atorvastatin Calcium 80 Mg Tablet, 80 MG PO HS, (Reported) Carboxymethylcellulose Sodium 15 Ml Drops, 1 DROP OU DAILY PRN for DRY EYES, (Reported) Cholecalciferol (Vitamin D3) 1,000 Unit Capsule, 1,000 UNIT PO DAILY, (Reported) Cholecalciferol (Vitamin D3) 5,000 Unit Tablet, 5,000 UNIT PO DAILY, (Reported) Citalopram Hydrobromide 40 Mg Tablet, 40 MG PO DAILY, (Reported) Fexofenadine HCl 180 Mg Tablet, 180 MG PO DAILY, (Reported) Fluticasone Propionate 9.9 Ml [place].susp, 1 SPRAY NS HS, (Reported) Heparin Sodium,Porcine/Pf 5,000 Unit/0.5 Ml Syringe, 5,000 UNIT SC Q8H, (Reported) MAY DISCONTINUE ONCE MOBILIZING Losartan Potassium 50 Mg Tablet, 50 MG PO DAILY, (Reported) Multivitamin with Minerals 1 Each Tablet, 1 TAB PO DAILY, (Reported) Nitroglycerin 0.4 Mg Tab.subl, 0.4 MG SL UD PRN for CHEST PAIN, (Reported) Pantoprazole Sodium 40 Mg Tablet.dr, 40 MG PO DAILY, (Reported) Ropinirole HCl 0.25 Mg Tablet, 0.25 MG PO HS, (Reported) Spironolactone 25 Mg Tablet, 25 MG PO DAILY, (Reported) Tamsulosin HCl 0.4 Mg Cap, 0.4 MG PO HS, (Reported) Warfarin Sodium 3 Mg Tablet, 3 MG PO DAILY, (Reported) DO NOT RESUME UNTIL DISCUSSED WITH DR. SIMS AT YOUR FOLLOW UP APPOINTMENT Patient Home Medication List Home Medication List Reviewed: Yes Past Wmvpmll-Idukec-Enlovd Hx Past Med/Social Hx: Reviewed Nursing Past Med/Soc Hx, Reviewed and Corrections made Patient Social History Alcohol Use: Denies Use Smoking Status: Former Smoker 2nd Hand Smoke Exposure: No Recent Foreign Travel: No Contact w/Someone Who Travel: No Recent Infectious Disease Expo: No Recent Hopitalizations: Yes (12/2018-DIVERTICULITIS/GI BLEED - 03/2019 NPH WITH HAND PLUG SHAPER SHUNT) Physical Abuse: No Sexual Abuse: No Mistreated: No Fear: No Immunizations Up To Date Date of Pneumonia Vaccine: Jun 11, 2017 Date of Influenza Vaccine: Jul 08, 2018 Seasonal Allergies Seasonal Allergies: Yes Past Medical History Surgeries: Yes (HEART STENTS X11, HEART BALLOONS X5, BILAT INGUINAL HERNIA, ) Brain Shunt, Cardiac, Coronary Stent, Gallbladder, Vascular Surgery Respiratory: Yes (USES CPAP) Sleep Apnea Currently Using CPAP: Yes Currently Using BIPAP: No Cardiac: Yes (STENTS X11 TOTAL, 5 HEART BALLOON PROCEDURES) Aneurysm, Atrial Fibrillation, Cardiomyopathy, Chronic Edema/Swelling, Coronary Artery Disease, High Cholesterol, Hypertension, Peripheral Vascular Neurological: No Reproductive Disorders: No Sexually Transmitted Disease: No HIV/AIDS: No Genitourinary: No Kidney Stones Gastrointestinal: Yes Abdominal Hernia, Diverticulosis Musculoskeletal: Yes Arthritis Endocrine: No HEENT: Yes (READING GLASSES, Meniere's DX, Cochlear implant- right) Loss of Vision: Bilateral Hearing Impairment: Hard of Hearing, Hearing Aide Left Cancer: No Psychosocial: Yes Depression Integumentary: No Blood Disorders: No Adverse Reaction/Blood Tranf: No (N/A) Family Medical History Reviewed and Corrections made Heart Disease, Hypertension Review of Systems-General Constitutional: No chills, No fever; malaise, weakness EENTM: No hoarseness, No throat pain Respiratory: No cough, No dyspnea on exertion, No short of breath Cardiovascular: No chest pain, No palpitations Gastrointestinal: No abdominal pain, No loss of appetite, No nausea, No vomitin g Genitourinary: no symptoms reported Musculoskeletal: No back pain; muscle weakness Skin: other Psychiatric/Neurological: Depressed, Weakness All Other Systems Reviewed Negative Unless Noted: Yes Physical Exam-General Problems Physical Exam Vital Signs Vital Signs - First Documented 04/04/19 13:00 Temp 98.2 Pulse 64 Resp 20 B/P (MAP) 111/76 (88) Pulse Ox 97 O2 Delivery Room Air Capillary Refill : General Appearance: WD/WN, no apparent distress Eyes: Bilateral Eye Normal Inspection, Bilateral Eye PERRL, Bilateral Eye EOMI HEENT: pharynx normal, other (SCAR WITH SHUNT HARDWARE BELOW SCALP ON LEFT AND COCHLEAR IMPLANT ON RIGHT) Neck: non-tender, supple Respiratory: chest non-tender, lungs clear, normal breath sounds, no respiratory distress, no accessory muscle use Cardiovascular: regular rate, rhythm Gastrointestinal: normal bowel sounds, non tender, soft, no organomegaly, no pulsatile mass Rectal: deferred Back: normal inspection Extremities: normal range of motion, non-tender, normal inspection, no pedal edema, no calf tenderness, normal capillary refill Neurologic/Psychiatric: manager application development II-XII nml as tested, alert, normal mood/affect, oriented x 3 Skin: normal color, warm/dry, other (SURGICAL SITE LEFT FOREHEAD - HEALING WELL) Lymphatic: no adenopathy Assessment/Plan Assessment/Plan Admission Diagnosis/Plan HYPERTENSION CORONARY ARTERY DISEASE HX 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 - SEE MEDICATION LIST. CORONARY ARTERY DISEASE - STABLE HX ABDOMINAL ANEURYSM - AND RECENTLY DIAGNOSED BASILAR ARTERY ANEURYSM - DEFER TO SPECIALIST - FAMILY TO DISCUSS TREATMENT OPTIONS WITH THE DR. FARIAS ON TUESDAY NEXT WEEK 04/10/19 AT HIS NPH SHUNT FOLLOW UP. 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 GAIT INSTABILITY WITH GENERALIZED WEAKNESS - PT IS TO RECEIVE PHYSICAL AND OCCUPATIONAL THERAPY IN THE INPT REHAB UNIT TO GET MICHAEL STRONG ENOUGH FOR RETURN TO HOME. DEPRESSION - STABLE ON CITALOPRAM. HARD OF HEARING S/P COCHLEAR IMPLANT - CONTINUE WITH USE OF IMPLANT - HE HAS SOME ISSUE WITH KEEPING THE MAGNET IN PLACE. HYPERLIPIDEMIA - RESUME HOME REGIMEN RESTLESS LEG SYNDROME - RESTART ROPINIROLE ATRIAL FIBRILLATION - HOLD COUMADIN PER DIRECTIONS FROM DISCHARGE SUMMARY - THEY HAD HIM ON HEPARIN, THIS WAS CHANGED TO LOVENOX PER DR. MENDENHALL - INPT REHAB PHYSICIAN. CHRONIC ANTICOAGULATION - CONTINUE WITH LOVENOX FOR AFIB - PT HAS BEEN IN AND OUT OF AFIB MULTIPLE TIMES DURING THIS HOSPITALIZATION. Admission Status: Inpatient Order (span 2 midnights) Reason for Inpatient Admission: INPATIENT ADMISSION TO THE HOSPITAL FOR INPATIENT REHAB FOR STRENGTHENING PRIOR TO DISCHARGE TO HOME Clinical Quality Measures DVT/VTE Risk/Contraindication: Risk Factor Score Per Nursin RFS Level Per Nursing on Admit: 4+=Very High DAPHNE BHATT MD Apr 05, 2019 18:59
[2019-04-05] MEDS: TAMSULOSIN 0.4 MG (FLOMAX) CAP PO SCH (21:28)
[2019-04-05] MEDS: ATORVASTATIN 80 MG (LIPITOR) TABLET PO SCH (21:28)
[2019-04-05] MEDS: rOPINIRole 0.25 MG (REQUIP) TAB PO SCH (21:28)
[2019-04-05] MEDS: FLUTICASONE NASAL SPRAY (FLONASE) 16 GM BTL NS SCH (21:29)
[2019-04-06 06:29] VITALS: BP 143/79
[2019-04-06] MEDS: POLYETHYLENE GLYCOL 17 GM (MIRALAX) PACK PO SCH ×2 (08:49→20:46)
[2019-04-06] MEDS: SPIRONOLACTONE 25 MG (ALDACTONE) TAB PO SCH (08:50)
[2019-04-06] MEDS: ALLOPURINOL 100 MG (ZYLOPRIM) TAB PO SCH (08:50)
[2019-04-06] MEDS: SENNA W/DOCUSATE (SENOKOT S) TABLET PO SCH ×2 (08:50→21:35)
[2019-04-06] MEDS: AMIODARONE 200 MG (CORDARONE) TAB PO SCH ×3 (08:50→21:32)
[2019-04-06] MEDS: ASPIRIN E.C. 325 MG (ECOTRIN) TABLET PO SCH (08:50)
[2019-04-06] MEDS: MULTIVIT W/MINERALS TAB (THERAGRAN M) PO SCH (08:50)
[2019-04-06] MEDS: LORATADINE (CLARITIN) 10 MG TAB PO SCH (08:50)
[2019-04-06] MEDS: PANTOPRAZOLE 40 MG (PROTONIX) TAB PO SCH (08:50)
[2019-04-06] MEDS: VITAMIN D3 5,000 UNITS (CHOLECALCIFEROL ) CAPSULE PO SCH (08:50)
[2019-04-06] MEDS: ENOXAPARIN 100 MG/1 ML (LOVENOX) SYR SC SCH ×2 (08:50→10:59)
[2019-04-06] MEDS: LOSARTAN 50 MG (COZAAR) TAB PO SCH (08:50)
--- NOTE | 2019-04-06 09:29 | Physical Therapy Daily Note ---
PT Daily Note-Current Subjective Acknowledges that he tends to go too fast at times, but notes that is how he has always done it. Again, expresses that he is anxious to return home. Mental Status Patient Orientation: Person, Place, Time, Situation Transfers Therapy Code Descriptions/Definitions Functional [place] Measure: 0=Not Assessed/NA 4=Minimal Assistance 1=Total Assistance 5=Supervision or Setup 2=Maximal Assistance 6=Modified [place] 3=Moderate Assistance 7=Complete [place] Therapy Quality Codes: 6 Independent with activity with or without an assistive device 5 Patient requires set up or clean up by helper. Patient completes activity by themselves 4 Supervision or touching assist (CGA). [place] provide cues , steadying assist 3 The helper provides less than half the effort to complete the activity 2 The helper provides more than half the effort to complete the activity 1 Dependent. The helper does all the effort to complete an activity 7 Patient refused to complete or attempt activity 9 The patient did not perform the activity before the current illness or injury 88 Not attempted due to Medical conditions or safety concerns Transfers (B, C, W/C) (FIM): 4 (CGA at times with skilled cues for sequencing and hand placement. ) Sit to/from Stand: 4 Cues for safety Gait Training Does the Patient Walk?: Yes Gait (FIM): 4 Distance (FIM): 3=150 ft Distance: >1000 Gait Assistive Device: FWW Pt walked on all surfaces, smooth, grassy, sloped, sidewalk, steps, ramp all with FWW and with SB-CGA. HEavy cues for speed (slow down) and for heel strike (tends to hit mid foot) and for turning safety (tends to step outside the walker.).Pt is impulsive at times with decreased safety awareness and has LOB episodes during gait requiring rigid assist to recover. Lengthy conversation about slowing down and his gait pattern. Pt was able to demonstrate improved gait as the treatment progressed as he really did focus on the cues and followed instruction. He will need continued reminders and cues to maintain this pattern but feel he has potential to improve his safety with decreased speed, improved heel strike and safer turning. Treatment primarily was gait training an high level neuromuscular/balance training to improve mobility in his home and outdoors...as he is typically active on a variety of in/outdoor surfaces. Exercises NuStep Minutes: 15 (to increase fucntional activity tolerance and safety) Assessment Current Status: Good Progress Pt responded well to skilled cues this date and did well correcting; however, feel he will need reminders for a while due to the nature of his mobiltiy and habits formed. PT Short Term Goals Short Term Goals Time Frame: Apr 11, 2019 Transfers (B,C,W/C) (FIM): 5 Gait (FIM): 5 PT Nursing Home Goals Nursing Home Goals PT Building Certifier Goals Time Frame: Apr 18, 2019 Transfers (B,C,W/C) (FIM): 7 Sit to Lying (QC): 6 Lying-Sitting on Side/Bed(QC): 6 Sit to Stand (QC): 6 Roll Left to Right (QC): 6 Chair/Wuk-bt-Gfhtr Xfer(QC): 6 Car Transfer (QC): 6 Does the Patient Walk: Yes Gait (FIM): 6 Gait distance (FIM): 3=150 ft Walk 10 feet (QC): 6 Walk 10ft-Uneven Surface(QC): 6 Walk 50ft with 2 Turns (QC): 6 Walk 150 ft (QC): 6 Gait Assistive Device: FWW Does the Pt use WC or Scooter?: No Stairs (FIM): 6 # of Steps: 12 1 Step (curb) (QC): 6 4 Steps (QC): 6 12 Steps (QC): 6 Picking up an Object (QC): 88 PT Plan Problem List Problem List: Activity Tolerance, Functional Strength, Safety, Balance, Gait, Transfer Treatment/Plan Treatment Plan: Continue Plan of Care Treatment Plan: Bed Mobility, Education, Functional Activity Ronit, Functional Strength, Group Therapy, Gait, Safety, Therapeutic Exercise, Transfers Treatment Duration: Apr 18, 2019 Frequency: At least 5 of 7 days/Wk (IRF) Estimated Hrs Per Day: 1.5 hours per day Patient and/or Family Agrees t: Yes Safety Risks/Education Patient Education: Gait Training, Transfer Techniques, Safety Issues Teaching Recipient: Patient Teaching Methods: Demonstration, Discussion Response to Teaching: Verbalize Understanding, Return Demonstration, Reinforcement Needed Will take time for new learning patterns to become habit Time/GCodes Time In: 810 Time Out: 920 Total Billed Treatment Time: 70 Total Billed Treatment visit EX 15 NM 25 GT 30 LUBA SALAS PT Apr 06, 2019 09:29
--- NOTE | 2019-04-06 10:47 | NUR ---
Pt is Mu-Ism. Anointed yesterday. provided Communion today.
[2019-04-06] MEDS ORDERED: ENOXAPARIN 40 MG/0.4 ML (LOVENOX) SYR SC SCH (11:00)
--- NOTE | 2019-04-06 11:03 | NUR ---
Dr Butcher here at this time.
--- NOTE | 2019-04-06 11:24 | PM&R Progress Note ---
Subjective HPI/CC On Admission Date Seen by Provider: Apr 06, 2019 Time Seen by Provider: 09:30 CC: Debility HPI: HPI: This is a Pt of Dr. 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 He was found to have altered gate and multiple falls and hearing loss over the past year that worsened requiring cochlear implants and further evaluation of the disequilibrium and neurologist was evaluating the Pt to have the large Basilar aneurysm so he was sent to for further evaluation. 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 He is on Coumadin maintained on adequate dosing for stroke prophylaxis from the atrial fibrillation and he is s/p CNA PER DIEM shunts with no complication but management of the aneurysm throughout the weekend that resulted in improvement in the mobility and ambulation and will need fine tuning for safety prevention and fall prevention and ultimately return home with his to return to prior level of functioning. Dr. Butcher PCP will be consulted. He has not had a BM for 1 week so will initiate an aggressive regimen for that. At this current time he doesn't have any pain and he is very hard of hearing even with the cochlear implants. Subjective/Events-last exam Slums score was identified to be low so that is making him more impulsive and not aware of his limitations and I did update PCP on this fact I counseled him with patient regarding the pace and taking it much slower to prevent falls and he seems to understand the process wants Coumadin held and Lovenox only at DVT PPx dose so that was changed by PCP PCP Dr. Butcher is appreciated and reassuring for the patient Conferred with RN Reviewed therapy notes Review of Systems General: Fatigue Objective Exam Vital Signs Vital Signs Date Time Temp Pulse Resp B/P (MAP) Pulse Ox O2 Delivery O2 Flow Rate FiO2 04/06/19 09:00 Room Air 04/06/19 06:29 98.6 61 20 143/79 (100) 93 Capillary Refill : General Appearance: No Apparent Distress, WD/WN, Chronically ill, Obese HEENT: PERRL/EOMI, Normal ENT Inspection, Pharynx Normal, Moist Mucous Membranes Neck: Full Range of Motion, Normal Inspection, Non Tender, Supple Respiratory: Chest Non Tender, Lungs Clear, Normal Breath Sounds, No Accessory Muscle Use, No Respiratory Distress Cardiovascular: Regular Rate, Rhythm, No Edema, No Gallop, No JVD, No Murmur Gastrointestinal: Normal Bowel Sounds, No Organomegaly, No Pulsatile Mass, Non Tender, Soft Back: Normal Inspection, No CVA Tenderness, No Vertebral Tenderness Extremity: Normal Capillary Refill, Normal Inspection, Normal Range of Motion, Non Tender, No Calf Tenderness, No Pedal Edema Neurologic/Psychiatric: Alert, Oriented x3, No Motor/Sensory Deficits, Normal Mood/Affect, security developer II-XII Norm as Tested, Abnormal Gait, Motor Weakness (lower le gs 4/5) Skin: Normal Color, Warm/Dry Lymphatic: No Adenopathy Results/Procedures Lab Patient resulted labs reviewed. FIM Transfers Therapy Code Descriptions/Definitions Functional [place] Measure: 0=Not Assessed/NA 4=Minimal Assistance 1=Total Assistance 5=Supervision or Setup 2=Maximal Assistance 6=Modified [place] 3=Moderate Assistance 7=Complete [place] Therapy Quality Codes: 6 Independent with activity with or without an assistive device 5 Patient requires set up or clean up by helper. Patient completes activity by themselves 4 Supervision or touching assist (CGA). [place] provide cues , steadying assist 3 The helper provides less than half the effort to complete the activity 2 The helper provides more than half the effort to complete the activity 1 Dependent. The helper does all the effort to complete an activity 7 Patient refused to complete or attempt activity 9 The patient did not perform the activity before the current illness or injury 88 Not attempted due to Medical conditions or safety concerns Transfers (B, C, W/C) (FIM): 4 (CGA at times with skilled cues for sequencing and hand placement. ) Roll Left to Right (QC): 4 Supine to/from Sit: 4 Sit to/from Stand: 4 Sit to Lying (QC): 4 Sit to Stand (QC): 4 Chair/Eqq-fe-Ndmlq Xfer(QC): 4 Gait Training Does the Patient Walk?: Yes Gait (FIM): 4 Distance (FIM): 3=150 ft Distance: >1000 Walk 10 feet (QC): 4 Walk 50 ft with 2 Turns(QC): 4 Walk 150 ft (QC): 4 Walking 10ft/uneven surface-QC: 4 Gait Assistive Device: FWW Wheelchair Training Does the Pt Use a Wheelchair?: No Stair Training Stair Training: Handrails/: 2 handrails Stairs (FIM): 2 #of Steps: 4 1 Step (curb) (QC): 4 4 Steps (QC): 4 12 Steps (QC): 88 Level of Assist: 4 (CGA for safety) Balance Picking up an Object (QC): 88 Mental Status/Objective Comprehension: 6 Expression: 6 Social Interaction: 7 Problem Solvin Memory: 5 ADL-Treatment Feedin (set up by report) Eating (QC): 5 Groomin (Set up at sink to brush hair seated in chair.) Oral Hygiene (QC): 5 Bathin (CGA at times in stance to wash all parts.) Shower/Bathe Self (QC): 4 Upper Extremity Dressin Upper Body Dressing (QC): 4 Lower Extremity Dressin (CGA at times seated while bending over.) Lower Body Dressing (QC): 4 On/Off Footwear (QC): 4 Toiletin Toileting Hygiene (QC): 4 Toilet/Commode Transfer: 4 Toilet Transfer (QC): 4 Shower: 4 Assessment/Plan Assessment and Plan Assess & Plan/Chief Complaint Assessment: (1) Brain aneurysm (2) NPH (normal pressure hydrocephalus) (3) Intracranial shunt (4) Basilar artery aneurysm (5) Weakness (6) CAD (coronary artery disease) (7) PVD (peripheral vascular disease) (8) S/P AAA repair (9) Renal insufficiency (10) Renal lithiasis (11) Ischemic cardiomyopathy (12) Warfarin anticoagulation (13) COPD (chronic obstructive pulmonary disease) (14) SYL (obstructive sleep apnea) (15) Hx of CABG (16) Atrial fibrillation (17) cognitive deficits Plan: Anticoagulation per PCP will be held and maintained on Lovenox DVT PPX dose PT/OT per protocol Monitor cognition closely Fall risk (1) Basilar artery aneurysm (2) Cognitive deficits (3) Intracranial shunt (4) Hx of CABG (5) S/P AAA repair (6) Warfarin anticoagulation (7) Renal lithiasis (8) Ischemic cardiomyopathy (9) Brain aneurysm (10) PVD (peripheral vascular disease) (11) Weakness (12) SYL (obstructive sleep apnea) (13) Renal insufficiency (14) NPH (normal pressure hydrocephalus) (15) CAD (coronary artery disease) (16) Atrial fibrillation (17) COPD (chronic obstructive pulmonary disease) SOLO MENDENHALL DO Apr 06, 2019 11:24
--- NOTE | 2019-04-06 13:07 | Occupational Ther Daily Note ---
OT Current Status-Daily Note Subjective Pt in bed, agrees to therapy. No reports of pain. Mental Status/Objective Therapy Code Descriptions/Definitions Functional [place] Measure: 0=Not Assessed/NA 4=Minimal Assistance 1=Total Assistance 5=Supervision or Setup 2=Maximal Assistance 6=Modified [place] 3=Moderate Assistance 7=Complete [place] ADL-Treatment Pt declined bathing or dressing today, states he has already completed grooming tasks this morning. Therapy Code Descriptions/Definitions Functional [place] Measure: 0=Not Assessed/NA 4=Minimal Assistance 1=Total Assistance 5=Supervision or Setup 2=Maximal Assistance 6=Modified [place] 3=Moderate Assistance 7=Complete [place] Therapy Quality Codes: 6 Independent with activity with or without an assistive device 5 Patient requires set up or clean up by helper. Patient completes activity by themselves 4 Supervision or touching assist (CGA). [place] provide cues , steadying assist 3 The helper provides less than half the effort to complete the activity 2 The helper provides more than half the effort to complete the activity 1 Dependent. The helper does all the effort to complete an activity 7 Patient refused to complete or attempt activity 9 The patient did not perform the activity before the current illness or injury 88 Not attempted due to Medical conditions or safety concerns Other Treatment Supine to sit without assist. Sit to stand with SBA. Gait to therapy gym with FWW with occasional cues for safety. Pt occasionally moves very quickly and requires cues for pace. Arm bike x12 minutes to increase overall strength and activity tolerance needed for functional tasks. Pt completed activity with minimal resistance and steady pace. No rest breaks needed. Bilateral UE exercises to increase strength for ADLs and transfers. Pt performed four exercises x15 reps with 2# dowel manuel. Brief rest break between exercises and occasional cues for proper exercise technique. Pt completed standing balloon bat activity to increase standing balance for functional activities. Pt used Bilateral UE for activity and required CGA for balance. Pt performed activity for 5 minutes, 2 sets with seated rest break in between. Pt performed fine motor task with nuts and bolts with bilateral UE with 1# weights in place to increase strength and coordination skills. Pt ambulated back to room with FWW, sitting EOB with physician and RN present after session. OT Short Term Goals Short Term Goals Time Frame: Apr 11, 2019 Lower Body Dressing(FIM): 5 Toileting(FIM): 5 Transfers (B,C,W/C) (FIM): 5 Toilet/Commode Transfer(FIM): 5 Additional Short Term Goals: 1-Demonstrate ADL Tasks, 2-Verbalize Understanding, 3-ImproveStrength/Ronit 1=Demonstrate adherence to instructed precautions during ADL tasks. 2=Patient will verbalize/demonstrate understanding of assistive device s/modifications for ADL. 3=Patient will improve strength/tolerance for activity to enable patient to perform ADL's. OT Senior Living Goals Senior Living Goals Time Frame: Apr 25, 2019 Eating (FIM): 7 Eating (QC): 6 Groomin Oral Hygiene (QC): 6 Bathing(FIM): 5 Shower/Bathe Self (QC): 5 Upper Body Dressing(FIM): 6 Upper Body Dressing (QC): 6 Lower Body Dressing(FIM): 6 Lower Body Dressing (QC): 6 On/Off Footwear (QC): 6 Toileting(FIM): 6 Toileting Hygiene (QC): 6 Toilet/Commode Transfer(FIM): 6 Toilet/Commode Transfer (QC): 6 Shower Transfer(FIM): 5 Additional Goals: 1-Demonstrate ADL Tasks, 2-Verbalize Understanding, 3- ImproveStrength/Ronit 1=Demonstrate adherence to instructed precautions during ADL tasks. 2=Patient will verbalize/demonstrate understanding of assistive devices/modifications for ADL. 3=Patient will improve strength/tolerance for activity to enable patient to perform ADL's. OT Education/Plan Discharge Recommendations Plan/Recommendations: Continue POC Treatment Plan/Plan of Care Patient would benefit from OT for education, treatment and training to promote independence in ADL's, mobility, safety and/or upper extremity function for ADL's. Plan of Care: ADL Retraining, Functional Mobility, UE Funct Exercise/Act Treatment Duration: Apr 25, 2019 Frequency: At least 5 of 7 days/Wk (IRF) Estimated Hrs Per Day: 1.5 hours per day Agreement: Yes Rehab Potential: Good Time/GCodes Start Time: 10:00 Stop Time: 11:00 Total Time Billed (hr/min): 60 Billed Treatment Time 1 visit, EXx3(45minutes), FA(15minutes) RICHIE MEJIA OT Apr 06, 2019 13:07
--- NOTE | 2019-04-06 13:36 | Progress Note ---
Subjective Date Seen by a Provider: Apr 06, 2019 Time Seen by a Provider: 10:30 Subjective/Events-last exam PT REPORTS THAT HE IS FEELING MUCH BETTER - HE DENIES CHEST PAIN, SHORTNESS OF BREATH, DIZZINESS, ABDOMINAL PAIN, NAUSEA. HE DENIES PAIN AT INCISION SITE. HE REPORTS THAT HE HAS KNOWN ABOUT THE ANEURYSM IN HIS BRAIN FOR SOME TIME. Review of Systems General: Fatigue; No Malaise HEENT: No Head Aches Pulmonary: No Dyspnea, No Cough Cardiovascular: No: Chest Pain, Palpitations Gastrointestinal: No: Nausea, Vomiting Genitourinary: No Dysuria Neurological: Weakness, Confusion Objective Exam Last Set of Vital Signs Vital Signs Date Time Temp Pulse Resp B/P (MAP) Pulse Ox O2 Delivery O2 Flow Rate FiO2 04/06/19 09:00 Room Air 04/06/19 06:29 98.6 61 20 143/79 (100) 93 Capillary Refill : I&O Intake and Output 04/06/19 00:00 Intake Total 1460 ml Balance 1460 ml Intake Oral 1460 ml # Voids 14 # Bowel Movements 2 General: Alert, Oriented X3, Cooperative, No Acute Distress HEENT: Atraumatic, PERRLA Neck: Supple Lungs: Clear to Auscultation, Normal Air Movement Heart: Regular Rate Abdomen: Normal Bowel Sounds, Soft Neuro: Cranial Nerves 3-12 NL Psych/Mental Status: Mental Status NL, Mood NL Assessment/Plan Assessment/Plan Assess & Plan/Chief Complaint HYPERTENSION CORONARY ARTERY DISEASE HX 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 - SEE MEDICATION LIST. CORONARY ARTERY DISEASE - STABLE HX ABDOMINAL ANEURYSM - AND RECENTLY DIAGNOSED BASILAR ARTERY ANEURYSM - DEFER TO [facility] SPECIALIST - FAMILY TO DISCUSS TREATMENT OPTIONS WITH THE DR. FARIAS ON TUESDAY NEXT WEEK 04/10/19 AT HIS [facility] SHUNT FOLLOW UP. NORMAL PRESSURE HYDROCEPHALUS - STATUS POST CLIENT SERVICE COORDINATOR SHUNT PLACEMENT - THIS WAS NEWLY DIAGNOSED ON HIS RECENT CT SCAN AFTER HIS FALL AT HOME. GAIT INSTABILITY WITH GENERALIZED WEAKNESS - PT IS TO RECEIVE PHYSICAL AND OCCUPATIONAL THERAPY IN THE INPT REHAB UNIT TO GET MICHAEL STRONG ENOUGH FOR RETURN TO HOME. DEPRESSION - STABLE ON CITALOPRAM. HARD OF HEARING S/P COCHLEAR IMPLANT - CONTINUE WITH USE OF IMPLANT - HE HAS SOME ISSUE WITH KEEPING THE MAGNET IN PLACE. HYPERLIPIDEMIA - RESUME HOME REGIMEN RESTLESS LEG SYNDROME - RESTART ROPINIROLE ATRIAL FIBRILLATION - HOLD COUMADIN PER DIRECTIONS FROM [facility] DISCHARGE SUMMARY - THEY HAD HIM ON HEPARIN, THIS WAS CHANGED TO LOVENOX PER DR. MENDENHALL - IN REHAB PHYSICIAN. CHRONIC ANTICOAGULATION - CONTINUE WITH LOVENOX FOR AFIB - PT HAS BEEN IN AND OUT OF AFIB MULTIPLE TIMES DURING THIS HOSPITALIZATION. Clinical Quality Measures DVT/VTE Risk/Contraindication: Risk Factor Score Per Nursin RFS Level Per Nursing on Admit: 4+=Very High DAPHNE BHATT MD Apr 06, 2019 13:35
--- NOTE | 2019-04-06 15:00 | Therapy Group Daily Note ---
Therapy Daily Group Note Patient Education Topic Other List Below (Bed Mobility & Transfers) Session Ratio (pt:therapist): 4:1 Goal of Session: Education on ARU Expectations, Energy Conservation Tech., Home Safety Strategies, Memory Strategies, Safety with Transfers, Use of Adaptive Equipment Goal Met for this Session: Yes Pt Benefit of Group: Contributions to Others, F/U Use of Strategies @Home, Increased Functional Safety, Improved Cognition, Recognition of Peers, Socialization Other/Notes Pt ambulates to PT/OT Group using FWW. Group consists Introduction (Name, Where you are from & an Event that stuck out in your life), Socialization, Explanation of ARU Expectations as well as Instruction of proper Bed Mobility and Transfers & Sit to Stand Transfers using FWW. Pt actively participated in Group by actively listening to others, asking and answering questions appropriately when asked. Pt returns to room at end of tx to rest with all needs met, call light in hand. Start Time: 13:00 Stop Time: 14:10 Total Billed Treatment Time: 70 Total Billed Treatment 1, RAFI ALTAMIRANO SILICA DRY PRESS HELPER Apr 06, 2019 15:00
--- NOTE | 2019-04-06 15:13 | Speech Therapy Daily Note ---
Speech Daily Progress Note Subjective Date Seen by Provider: Apr 06, 2019 Time Seen by Provider: 00:30 The patient stated he rested very well last night. Objective The patient completed memory tasks related to his daily needs at 80% with min to mod verbal cues. Assessment Assessment Current Status: Good Progress Communication Comprehension: 6 Expression: 6 Social Cognition Social Interaction: 7 Problem Solvin Memory: 5 Speech Short Term Goals Short Term Goals Short Term Goals 1) The patient will complete memory tasks with 90% or greater with minimal verbal cues. 2) The patient will complete problem solving tasks with 90% or greater with minimal verbal cues. 3) The patient will demonstrate following multi-step directions with 90% or greater with minimal verbal cues. Speech Alf Goals Artist'S Model Goals The patient will improve his safety and independence in order to return home safely. Speech-Plan Patient/Family Goals Patient/Family Goals: The patient plans on returning home with his post rehab. Treatment Plan Speech Therapy Treatment Plan: Continue Plan of Care The patient is making good progress toward all goals. Treatment Duration: Apr 13, 2019 Frequency: 5 times per week Estimated Hrs Per Day: .5 hour per day Rehab Potential: Good Barriers to Learning: Patient has mild cognitive decline. Pt/Family Agrees to Plan: Yes Safety Risks/Education Teaching Recipient: Patient, Significant Other Teaching Methods: Discussion Response to Teaching: Verbalize Understanding Education Topics Provided: Safety within his immediate environment. Time Speech Therapy Time In: 11:30 Speech Therapy Time Out: 12:00 Total Billed Time: 30 Billed Treatment Time JonathanYUDITH BETHANIA ST Apr 06, 2019 15:13
[2019-04-06 18:59] VITALS: BP 125/79
[2019-04-06] MEDS: rOPINIRole 0.25 MG (REQUIP) TAB PO SCH (21:31)
[2019-04-06] MEDS: TAMSULOSIN 0.4 MG (FLOMAX) CAP PO SCH (21:31)
[2019-04-06] MEDS: ATORVASTATIN 80 MG (LIPITOR) TABLET PO SCH (21:32)
[2019-04-06] MEDS: FLUTICASONE NASAL SPRAY (FLONASE) 16 GM BTL NS SCH (21:33)
[2019-04-07 06:29] VITALS: BP 112/73
[2019-04-07 08:00] VITALS: BP 120/77
[2019-04-07] MEDS: ALLOPURINOL 100 MG (ZYLOPRIM) TAB PO SCH (08:37)
[2019-04-07] MEDS: ASPIRIN E.C. 325 MG (ECOTRIN) TABLET PO SCH (08:37)
[2019-04-07] MEDS: VITAMIN D3 5,000 UNITS (CHOLECALCIFEROL ) CAPSULE PO SCH (08:37)
[2019-04-07] MEDS: PANTOPRAZOLE 40 MG (PROTONIX) TAB PO SCH (08:40)
[2019-04-07] MEDS: LOSARTAN 50 MG (COZAAR) TAB PO SCH (08:40)
[2019-04-07] MEDS: LORATADINE (CLARITIN) 10 MG TAB PO SCH (08:40)
[2019-04-07] MEDS: AMIODARONE 200 MG (CORDARONE) TAB PO SCH ×3 (08:41→20:08)
[2019-04-07] MEDS: SPIRONOLACTONE 25 MG (ALDACTONE) TAB PO SCH (08:41)
[2019-04-07] MEDS: MULTIVIT W/MINERALS TAB (THERAGRAN M) PO SCH (08:41)
[2019-04-07] MEDS: POLYETHYLENE GLYCOL 17 GM (MIRALAX) PACK PO SCH ×2 (08:43→19:33)
[2019-04-07] MEDS: SENNA W/DOCUSATE (SENOKOT S) TABLET PO SCH ×2 (08:44→19:34)
--- NOTE | 2019-04-07 10:00 | NUR ---
PATIENT AND WERE BOTH INFORMED NEED TO PUT [place] JELLY ON HEAD INCISION PRIOR TO HAIR CUT, BUT THIS NURSE WAS NOT CALLED AND HAIR CUT WAS DONE. NO HAIR AROUND INCISION AND INCISION LOOKS FINE.
--- NOTE | 2019-04-07 10:12 | PM&R Progress Note ---
Subjective HPI/CC On Admission Date Seen by Provider: Apr 07, 2019 Time Seen by Provider: 10:00 CC: Debility HPI: HPI: This is a Pt of Dr. Butcher who presented after transfer from [facility] after an extensive hospital stay that included management of normal pressure hydrocephalus with evp chief exploration officer shunt placed and management of a large basilar aneurysm. He was found to have altered gate and multiple falls and hearing loss over the past year that worsened requiring cochlear implants and further evaluation of the disequilibrium and neurologist was evaluating the Pt to have the large Basilar aneurysm so he was sent to for further evaluation. 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 He is on Coumadin maintained on adequate dosing for stroke prophylaxis from the atrial fibrillation and he is s/p TRIMMING MACHINE OPERATOR shunts with no complication but management of the aneurysm throughout the weekend that resulted in improvement in the mobility and ambulation and will need fine tuning for safety prevention and fall prevention and ultimately return home with his to return to prior level of functioning. Dr. Butcher PCP will be consulted. He has not had a BM for 1 week so will initiate an aggressive regimen for that. At this current time he doesn't have any pain and he is very hard of hearing even with the cochlear implants. Subjective/Events-last exam Patient wants to go home LUANNE I counseled him with patient regarding the pace and taking it much slower to prevent falls and he seems to understand the process Loose stools so Senna will be held PCP Dr. Butcher is appreciated and reassuring for the patient Conferred with RN Reviewed therapy notes Insomnia noted so will monitor that Review of Systems General: Fatigue Neurological: Incoordination, Confusion Objective Exam Vital Signs Vital Signs Date Time Temp Pulse Resp B/P (MAP) Pulse Ox O2 Delivery O2 Flow Rate FiO2 04/07/19 16:55 98.8 66 16 97/64 (75) 91 Room Air Capillary Refill : General Appearance: No Apparent Distress, WD/WN, Chronically ill, Obese HEENT: PERRL/EOMI, Normal ENT Inspection, Pharynx Normal, Moist Mucous Membranes Neck: Full Range of Motion, Normal Inspection, Non Tender, Supple Respiratory: Chest Non Tender, Lungs Clear, Normal Breath Sounds, No Accessory Muscle Use, No Respiratory Distress Cardiovascular: Regular Rate, Rhythm, No Edema, No Gallop, No JVD, No Murmur Gastrointestinal: Normal Bowel Sounds, No Organomegaly, No Pulsatile Mass, Non Tender, Soft Back: Normal Inspection, No CVA Tenderness, No Vertebral Tenderness Extremity: Normal Capillary Refill, Normal Inspection, Normal Range of Motion, Non Tender, No Calf Tenderness, No Pedal Edema Neurologic/Psychiatric: Alert, Oriented x3, No Motor/Sensory Deficits, Normal Mood/Affect, water valve repairer II-XII Norm as Tested, Abnormal Gait, Motor Weakness (lower legs 4/5) Skin: Normal Color, Warm/Dry Lymphatic: No Adenopathy Results/Procedures Lab Patient resulted labs reviewed. FIM Transfers Therapy Code Descriptions/Definitions Functional [place] Measure: 0=Not Assessed/NA 4=Minimal Assistance 1=Total Assistance 5=Supervision or Setup 2=Maximal Assistance 6=Modified [place] 3=Moderate Assistance 7=Complete [place] Therapy Quality Codes: 6 Independent with activity with or without an assistive device 5 Patient requires set up or clean up by helper. Patient completes activity by themselves 4 Supervision or touching assist (CGA). [place] provide cues , steadying assist 3 The helper provides less than half the effort to complete the activity 2 The helper provides more than half the effort to complete the activity 1 Dependent. The helper does all the effort to complete an activity 7 Patient refused to complete or attempt activity 9 The patient did not perform the activity before the current illness or injury 88 Not attempted due to Medical conditions or safety concerns Transfers (B, C, W/C) (FIM): 4 (CGA at times with skilled cues for sequencing and hand placement. ) Roll Left to Right (QC): 4 Supine to/from Sit: 4 Sit to/from Stand: 4 Sit to Lying (QC): 4 Sit to Stand (QC): 4 Chair/Kpm-sc-Godya Xfer(QC): 4 Gait Training Does the Patient Walk?: Yes Gait (FIM): 4 Distance (FIM): 3=150 ft Distance: >1000 Walk 10 feet (QC): 4 Walk 50 ft with 2 Turns(QC): 4 Walk 150 ft (QC): 4 Walking 10ft/uneven surface-QC: 4 Gait Assistive Device: FWW Wheelchair Training Does the Pt Use a Wheelchair?: No Stair Training Stair Training: Handrails/: 2 handrails Stairs (FIM): 2 #of Steps: 4 1 Step (curb) (QC): 4 4 Steps (QC): 4 12 Steps (QC): 88 Level of Assist: 4 (CGA for safety) Balance Picking up an Object (QC): 88 Mental Status/Objective Comprehension: 6 Expression: 6 Social Interaction: 7 Problem Solvin Memory: 5 ADL-Treatment Feedin (set up by report) Eating (QC): 5 Groomin (Set up at sink to brush hair seated in chair.) Oral Hygiene (QC): 5 Bathin (CGA at times in stance to wash all parts.) Shower/Bathe Self (QC): 4 Upper Extremity Dressin Upper Body Dressing (QC): 4 Lower Extremity Dressin (CGA at times seated while bending over.) Lower Body Dressing (QC): 4 On/Off Footwear (QC): 4 Toiletin Toileting Hygiene (QC): 4 Toilet/Commode Transfer: 4 Toilet Transfer (QC): 4 Shower: 4 Assessment/Plan Assessment and Plan Assess & Plan/Chief Complaint Assessment: (1) Brain aneurysm (2) NPH (normal pressure hydrocephalus) (3) Intracranial shunt (4) Basilar artery aneurysm (5) Weakness (6) CAD (coronary artery disease) (7) PVD (peripheral vascular disease) (8) S/P AAA repair (9) Renal insufficiency (10) Renal lithiasis (11) Ischemic cardiomyopathy (12) Warfarin anticoagulation (13) COPD (chronic obstructive pulmonary disease) (14) SYL (obstructive sleep apnea) (15) Hx of CABG (16) Atrial fibrillation (17) cognitive deficits Plan: Anticoagulation per PCP will be held and maintained on Lovenox DVT PPX dose PT/OT per protocol Monitor cognition closely Fall risk DC soon (1) Basilar artery aneurysm (2) Cognitive deficits (3) Intracranial shunt (4) Hx of CABG (5) S/P AAA repair (6) Warfarin anticoagulation (7) Renal lithiasis (8) Ischemic cardiomyopathy (9) Brain aneurysm (10) PVD (peripheral vascular disease) (11) Weakness (12) SYL (obstructive sleep apnea) (13) Renal insufficiency (14) NPH (normal pressure hydrocephalus) (15) CAD (coronary artery disease) (16) Atrial fibrillation (17) COPD (chronic obstructive pulmonary disease) SOLO MENDENHALL DO Apr 07, 2019 10:11
[2019-04-07] MEDS: ENOXAPARIN 40 MG/0.4 ML (LOVENOX) SYR SC SCH (11:45)
--- NOTE | 2019-04-07 12:32 | Physical Therapy Daily Note ---
PT Daily Note-Current Subjective Pt agreeable to PT session Pain Numeric Pain Scale: 0-No Pain Appearance 1st attempt, pt in bed eating breakfast 2nd attempt, upon arrival, pt in bed, awake and alert Pt requesting and assisted with going to the bathroom (SBA for transfer, min A with pulling down and up pants), washing hands and brushing teeth with SBA At end of session, pt in bed, per pt request, with call light, phone and bedside table within reach Mental Status Patient Orientation: Person, Place, Time, Eyes Open Transfers Therapy Code Descriptions/Definitions Functional [place] Measure: 0=Not Assessed/NA 4=Minimal Assistance 1=Total Assistance 5=Supervision or Setup 2=Maximal Assistance 6=Modified [place] 3=Moderate Assistance 7=Complete [place] Therapy Quality Codes: 6 Independent with activity with or without an assistive device 5 Patient requires set up or clean up by helper. Patient completes activity by themselves 4 Supervision or touching assist (CGA). [place] provide cues , steadying assist 3 The helper provides less than half the effort to complete the activity 2 The helper provides more than half the effort to complete the activity 1 Dependent. The helper does all the effort to complete an activity 7 Patient refused to complete or attempt activity 9 The patient did not perform the activity before the current illness or injury 88 Not attempted due to Medical conditions or safety concerns Transfers (B, C, W/C) (FIM): 5 min inst required for safety and hand placement Gait Training Does the Patient Walk?: Yes Gait (FIM): 4 Distance (FIM): 3=150 ft Distance: 200 x2 Gait Level of Assist: 4 (CGA provided 2* occasional unsteadiness) Gait Persons Needed: 1 Gait Assistive Device: FWW impulsive, fast pace, decreased heel strike, able to follow instruction to slow pace, instruction provided to improve posture and focusing on heel strike Exercises Standing: Marching (on airex), Retro gait, Sit to Stand, Stepping over objects, Unilateral stance Standing Reps: 10 ((+)standing on indoboard(air disc) x3 minutes(+)tandem gait ) attempting without UE support in // bars with standing exercises Treatments balance, safety, transfers, gait, strength, functional mobility, activity tolerance, fall prevention/recovery Assessment Current Status: Good Progress PT Short Term Goals Short Term Goals Time Frame: Apr 11, 2019 Transfers (B,C,W/C) (FIM): 5 Gait (FIM): 5 PT It Administrator Goals It Administrator Goals PT Senior Living Goals Time Frame: Apr 18, 2019 Transfers (B,C,W/C) (FIM): 7 Sit to Lying (QC): 6 Lying-Sitting on Side/Bed(QC): 6 Sit to Stand (QC): 6 Roll Left to Right (QC): 6 Chair/Qrj-vo-Kzlth Xfer(QC): 6 Car Transfer (QC): 6 Does the Patient Walk: Yes Gait (FIM): 6 Gait distance (FIM): 3=150 ft Walk 10 feet (QC): 6 Walk 10ft-Uneven Surface(QC): 6 Walk 50ft with 2 Turns (QC): 6 Walk 150 ft (QC): 6 Gait Assistive Device: FWW Does the Pt use WC or Scooter?: No Stairs (FIM): 6 # of Steps: 12 1 Step (curb) (QC): 6 4 Steps (QC): 6 12 Steps (QC): 6 Picking up an Object (QC): 88 PT Plan Treatment/Plan Treatment Plan: Continue Plan of Care Treatment Plan: Bed Mobility, Education, Functional Activity Ronit, Functional Strength, Group Therapy, Gait, Safety, Therapeutic Exercise, Transfers Treatment Duration: Apr 18, 2019 Frequency: At least 5 of 7 days/Wk (IRF) Estimated Hrs Per Day: 1.5 hours per day Patient and/or Family Agrees t: Yes Safety Risks/Education Patient Education: Gait Training, Transfer Techniques, Safety Issues Teaching Recipient: Patient Teaching Methods: Demonstration, Discussion Response to Teaching: Verbalize Understanding, Return Demonstration, Reinforcement Needed Time/GCodes Time In: 932 Time Out: 955 Total Billed Treatment Time: 23 Total Billed Treatment 1 visit, GT x 1 unit, NM x1 unit JUANJOSE BEATTY HEAT TREAT INSPECTOR Apr 07, 2019 12:31
[2019-04-07 16:55] VITALS: BP 97/64
[2019-04-07] MEDS: TAMSULOSIN 0.4 MG (FLOMAX) CAP PO SCH (20:08)
[2019-04-07] MEDS: FLUTICASONE NASAL SPRAY (FLONASE) 16 GM BTL NS SCH (20:08)
[2019-04-07] MEDS: rOPINIRole 0.25 MG (REQUIP) TAB PO SCH (20:08)
[2019-04-07] MEDS: ATORVASTATIN 80 MG (LIPITOR) TABLET PO SCH (20:08)
[2019-04-08 05:56] VITALS: BP 143/88
[2019-04-08] MEDS: AMIODARONE 200 MG (CORDARONE) TAB PO SCH ×3 (09:02→21:02)
[2019-04-08] MEDS: MULTIVIT W/MINERALS TAB (THERAGRAN M) PO SCH (09:02)
[2019-04-08] MEDS: VITAMIN D3 5,000 UNITS (CHOLECALCIFEROL ) CAPSULE PO SCH (09:02)
[2019-04-08] MEDS: SPIRONOLACTONE 25 MG (ALDACTONE) TAB PO SCH (09:02)
[2019-04-08] MEDS: PANTOPRAZOLE 40 MG (PROTONIX) TAB PO SCH (09:02)
[2019-04-08] MEDS: ALLOPURINOL 100 MG (ZYLOPRIM) TAB PO SCH (09:02)
[2019-04-08] MEDS: LORATADINE (CLARITIN) 10 MG TAB PO SCH (09:02)
[2019-04-08] MEDS: ASPIRIN E.C. 325 MG (ECOTRIN) TABLET PO SCH (09:02)
[2019-04-08] MEDS: LOSARTAN 50 MG (COZAAR) TAB PO SCH (09:02)
[2019-04-08] MEDS: SENNA W/DOCUSATE (SENOKOT S) TABLET PO SCH ×2 (09:05→19:38)
[2019-04-08] MEDS: POLYETHYLENE GLYCOL 17 GM (MIRALAX) PACK PO SCH ×2 (09:05→19:38)
--- NOTE | 2019-04-08 10:51 | PM&R Progress Note ---
Subjective HPI/CC On Admission Date Seen by Provider: Apr 08, 2019 Time Seen by Provider: 10:45 CC: Debility HPI: HPI: This is a Pt of Dr. Butcher who presented after transfer from [facility] after an extensive hospital stay that included management of normal pressure hydrocephalus with vp of customer experience strategy shunt placed and management of a large basilar aneurysm. He was found to have altered gate and multiple falls and hearing loss over the past year that worsened requiring cochlear implants and further evaluation of the disequilibrium and neurologist was evaluating the Pt to have the large Basilar aneurysm so he was sent to for further evaluation. 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 He is on Coumadin maintained on adequate dosing for stroke prophylaxis from the atrial fibrillation and he is s/p LINE INSTALLATION SUPERVISOR shunts with no complication but management of the aneurysm throughout the weekend that resulted in improvement in the mobility and ambulation and will need fine tuning for safety prevention and fall prevention and ultimately return home with his to return to prior level of functioning. Dr. Butcher PCP will be consulted. He has not had a BM for 1 week so will initiate an aggressive regimen for that. At this current time he doesn't have any pain and he is very hard of hearing even with the cochlear implants. Subjective/Events-last exam Patient wants to go home LUANNE I counseled him with patient regarding the pace and taking it much slower to prevent falls and he seems to understand the process Stools are normal now PCP Dr. Butcher is appreciated and reassuring for the patient Conferred with RN Reviewed therapy notes Insomnia noted so will monitor that Objective Exam Vital Signs Vital Signs Date Time Temp Pulse Resp B/P (MAP) Pulse Ox O2 Delivery O2 Flow Rate FiO2 04/08/19 09:00 Room Air 04/08/19 05:56 99.0 59 18 143/88 (106) 96 Capillary Refill : General Appearance: No Apparent Distress, WD/WN, Chronically ill, Obese HEENT: PERRL/EOMI, Normal ENT Inspection, Pharynx Normal, Moist Mucous Membranes Neck: Full Range of Motion, Normal Inspection, Non Tender, Supple Respiratory: Chest Non Tender, Lungs Clear, Normal Breath Sounds, No Accessory Muscle Use, No Respiratory Distress Cardiovascular: Regular Rate, Rhythm, No Edema, No Gallop, No JVD, No Murmur Gastrointestinal: Normal Bowel Sounds, No Organomegaly, No Pulsatile Mass, Non Tender, Soft Back: Normal Inspection, No CVA Tenderness, No Vertebral Tenderness Extremity: Normal Capillary Refill, Normal Inspection, Normal Range of Motion, Non Tender, No Calf Tenderness, No Pedal Edema Neurologic/Psychiatric: Alert, Oriented x3, No Motor/Sensory Deficits, Normal Mood/Affect, 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 FIM Transfers Therapy Code Descriptions/Definitions Functional [place] Measure: 0=Not Assessed/NA 4=Minimal Assistance 1=Total Assistance 5=Supervision or Setup 2=Maximal Assistance 6=Modified [place] 3=Moderate Assistance 7=Complete [place] Therapy Quality Codes: 6 Independent with activity with or without an assistive device 5 Patient requires set up or clean up by helper. Patient completes activity by themselves 4 Supervision or touching assist (CGA). [place] provide cues , steadying assist 3 The helper provides less than half the effort to complete the activity 2 The helper provides more than half the effort to complete the activity 1 Dependent. The helper does all the effort to complete an activity 7 Patient refused to complete or attempt activity 9 The patient did not perform the activity before the current illness or injury 88 Not attempted due to Medical conditions or safety concerns Transfers (B, C, W/C) (FIM): 5 Roll Left to Right (QC): 4 Supine to/from Sit: 4 Sit to/from Stand: 4 Sit to Lying (QC): 4 Sit to Stand (QC): 4 Chair/Xwj-la-Wpwth Xfer(QC): 4 Gait Training Does the Patient Walk?: Yes Gait (FIM): 4 Distance (FIM): 3=150 ft Distance: 200 x2 Walk 10 feet (QC): 4 Walk 50 ft with 2 Turns(QC): 4 Walk 150 ft (QC): 4 Walking 10ft/uneven surface-QC: 4 Gait Level of Assist: 4 (CGA provided 2* occasional unsteadiness) Gait Persons Needed: 1 Gait Assistive Device: FWW Wheelchair Training Does the Pt Use a Wheelchair?: No Stair Training Stair Training: Handrails/: 2 handrails Stairs (FIM): 2 #of Steps: 4 1 Step (curb) (QC): 4 4 Steps (QC): 4 12 Steps (QC): 88 Level of Assist: 4 (CGA for safety) Balance Picking up an Object (QC): 88 Mental Status/Objective Comprehension: 6 Expression: 6 Social Interaction: 7 Problem Solvin Memory: 5 ADL-Treatment Feedin (set up by report) Eating (QC): 5 Groomin (Set up at sink to brush hair seated in chair.) Oral Hygiene (QC): 5 Bathin (CGA at times in stance to wash all parts.) Shower/Bathe Self (QC): 4 Upper Extremity Dressin Upper Body Dressing (QC): 4 Lower Extremity Dressin (CGA at times seated while bending over.) Lower Body Dressing (QC): 4 On/Off Footwear (QC): 4 Toiletin Toileting Hygiene (QC): 4 Toilet/Commode Transfer: 4 Toilet Transfer (QC): 4 Shower: 4 Assessment/Plan Assessment and Plan Assess & Plan/Chief Complaint Assessment: (1) Brain aneurysm (2) NPH (normal pressure hydrocephalus) (3) Intracranial shunt (4) Basilar artery aneurysm (5) Weakness (6) CAD (coronary artery disease) (7) PVD (peripheral vascular disease) (8) S/P AAA repair (9) Renal insufficiency (10) Renal lithiasis (11) Ischemic cardiomyopathy (12) Warfarin anticoagulation (13) COPD (chronic obstructive pulmonary disease) (14) SYL (obstructive sleep apnea) (15) Hx of CABG (16) Atrial fibrillation (17) cognitive deficits Plan: Anticoagulation per PCP will be held and maintained on Lovenox DVT PPX dose PT/OT per protocol Monitor cognition closely Fall risk DC soon (1) Basilar artery aneurysm (2) Cognitive deficits (3) Intracranial shunt (4) Hx of CABG (5) S/P AAA repair (6) Warfarin anticoagulation (7) Renal lithiasis (8) Ischemic cardiomyopathy (9) Brain aneurysm (10) PVD (peripheral vascular disease) (11) Weakness (12) SYL (obstructive sleep apnea) (13) Renal insufficiency (14) NPH (normal pressure hydrocephalus) (15) CAD (coronary artery disease) (16) Atrial fibrillation (17) COPD (chronic obstructive pulmonary disease) SOLO MENDENHALL DO Apr 08, 2019 10:51
[2019-04-08] MEDS: ENOXAPARIN 40 MG/0.4 ML (LOVENOX) SYR SC SCH (11:32)
[2019-04-08 16:31] VITALS: BP 124/76
[2019-04-08] MEDS: ATORVASTATIN 80 MG (LIPITOR) TABLET PO SCH (21:02)
[2019-04-08] MEDS: TAMSULOSIN 0.4 MG (FLOMAX) CAP PO SCH (21:02)
[2019-04-08] MEDS: rOPINIRole 0.25 MG (REQUIP) TAB PO SCH (21:02)
[2019-04-08] MEDS: FLUTICASONE NASAL SPRAY (FLONASE) 16 GM BTL NS SCH (21:05)
[2019-04-09 05:58] VITALS: BP 148/72
[2019-04-09] MEDS: SENNA W/DOCUSATE (SENOKOT S) TABLET PO SCH ×2 (08:44→20:58)
[2019-04-09] MEDS: MULTIVIT W/MINERALS TAB (THERAGRAN M) PO SCH (08:44)
[2019-04-09] MEDS: POLYETHYLENE GLYCOL 17 GM (MIRALAX) PACK PO SCH ×2 (08:44→20:58)
[2019-04-09] MEDS: PANTOPRAZOLE 40 MG (PROTONIX) TAB PO SCH (08:44)
[2019-04-09] MEDS: AMIODARONE 200 MG (CORDARONE) TAB PO SCH ×3 (08:44→20:58)
[2019-04-09] MEDS: LOSARTAN 50 MG (COZAAR) TAB PO SCH (08:44)
[2019-04-09] MEDS: ASPIRIN E.C. 325 MG (ECOTRIN) TABLET PO SCH (08:45)
[2019-04-09] MEDS: SPIRONOLACTONE 25 MG (ALDACTONE) TAB PO SCH (08:45)
[2019-04-09] MEDS: ALLOPURINOL 100 MG (ZYLOPRIM) TAB PO SCH (08:45)
[2019-04-09] MEDS: VITAMIN D3 5,000 UNITS (CHOLECALCIFEROL ) CAPSULE PO SCH (08:45)
[2019-04-09] MEDS: LORATADINE (CLARITIN) 10 MG TAB PO SCH (08:45)
--- NOTE | 2019-04-09 09:20 | PM&R Progress Note ---
Subjective HPI/CC On Admission Date Seen by Provider: Apr 09, 2019 Time Seen by Provider: 09:30 CC: Debility HPI: HPI: This is a Pt of Dr. Butcher who presented after transfer from [facility] after an extensive hospital stay that included management of normal pressure hydrocephalus with vp design shunt placed and management of a large basilar aneurysm. He was found to have altered gate and multiple falls and hearing loss over the past year that worsened requiring cochlear implants and further evaluation of the disequilibrium and neurologist was evaluating the Pt to have the large Basilar aneurysm so he was sent to for further evaluation. 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 He is on Coumadin maintained on adequate dosing for stroke prophylaxis from the atrial fibrillation and he is s/p BOOKY shunts with no complication but management of the aneurysm throughout the weekend that resulted in improvement in the mobility and ambulation and will need fine tuning for safety prevention and fall prevention and ultimately return home with his to return to prior level of functioning. Dr. Butcher PCP will be consulted. He has not had a BM for 1 week so will initiate an aggressive regimen for that. At this current time he doesn't have any pain and he is very hard of hearing even with the cochlear implants. Subjective/Events-last exam Pt doing very well. Trying to pace himself and not go to fast to place himself at risk for falls. Has a [facility] appointment with a neurosurgeon April 12. Bowels are moving. No pain is reported. No seizures. Will start Coumadin under the direction of neurosurgery. Patient still too high of risk of falls to be allowed DC so will need to reassure the patient and continue working Review of Systems General: Fatigue Objective Exam Vital Signs Vital Signs Date Time Temp Pulse Resp B/P (MAP) Pulse Ox O2 Delivery O2 Flow Rate FiO2 04/09/19 17:42 98.0 71 18 135/77 (96) 95 Room Air Capillary Refill : General Appearance: No Apparent Distress, WD/WN, Chronically ill, Obese HEENT: PERRL/EOMI, Normal ENT Inspection, Pharynx Normal, Moist Mucous Membranes Neck: Full Range of Motion, Normal Inspection, Non Tender, Supple Respiratory: Chest Non Tender, Lungs Clear, Normal Breath Sounds, No Accessory Muscle Use, No Respiratory Distress Cardiovascular: Regular Rate, Rhythm, No Edema, No Gallop, No JVD, No Murmur Gastrointestinal: Normal Bowel Sounds, No Organomegaly, No Pulsatile Mass, Non Tender, Soft Back: Normal Inspection, No CVA Tenderness, No Vertebral Tenderness Extremity: Normal Capillary Refill, Normal Inspection, Normal Range of Motion, Non Tender, No Calf Tenderness, No Pedal Edema Neurologic/Psychiatric: Alert, Oriented x3, No Motor/Sensory Deficits, Normal Mood/Affect, 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 FIM Transfers Therapy Code Descriptions/Definitions Functional [place] Measure: 0=Not Assessed/NA 4=Minimal Assistance 1=Total Assistance 5=Supervision or Setup 2=Maximal Assistance 6=Modified [place] 3=Moderate Assistance 7=Complete [place] Therapy Quality Codes: 6 Independent with activity with or without an assistive device 5 Patient requires set up or clean up by helper. Patient completes activity by themselves 4 Supervision or touching assist (CGA). [place] provide cues , steadying a ssist 3 The helper provides less than half the effort to complete the activity 2 The helper provides more than half the effort to complete the activity 1 Dependent. The helper does all the effort to complete an activity 7 Patient refused to complete or attempt activity 9 The patient did not perform the activity before the current illness or injury 88 Not attempted due to Medical conditions or safety concerns Transfers (B, C, W/C) (FIM): 5 Roll Left to Right (QC): 4 Supine to/from Sit: 4 Sit to/from Stand: 4 Sit to Lying (QC): 4 Sit to Stand (QC): 4 Chair/Njt-wu-Peoud Xfer(QC): 4 Gait Training Does the Patient Walk?: Yes Gait (FIM): 4 Distance (FIM): 3=150 ft Distance: 200 x2 Walk 10 feet (QC): 4 Walk 50 ft with 2 Turns(QC): 4 Walk 150 ft (QC): 4 Walking 10ft/uneven surface-QC: 4 Gait Level of Assist: 4 (CGA provided 2* occasional unsteadiness) Gait Persons Needed: 1 Gait Assistive Device: FWW Wheelchair Training Does the Pt Use a Wheelchair?: No Stair Training Stair Training: Handrails/: 2 handrails Stairs (FIM): 2 #of Steps: 4 1 Step (curb) (QC): 4 4 Steps (QC): 4 12 Steps (QC): 88 Level of Assist: 4 (CGA for safety) Balance Picking up an Object (QC): 88 Mental Status/Objective Comprehension: 6 Expression: 6 Social Interaction: 7 Problem Solvin Memory: 5 ADL-Treatment Feedin (set up by report) Eating (QC): 5 Groomin (Set up at sink to brush hair seated in chair.) Oral Hygiene (QC): 5 Bathin (CGA at times in stance to wash all parts.) Shower/Bathe Self (QC): 4 Upper Extremity Dressin Upper Body Dressing (QC): 4 Lower Extremity Dressin (CGA at times seated while bending over.) Lower Body Dressing (QC): 4 On/Off Footwear (QC): 4 Toiletin Toileting Hygiene (QC): 4 Toilet/Commode Transfer: 4 Toilet Transfer (QC): 4 Shower: 4 Assessment/Plan Assessment and Plan Assess & Plan/Chief Complaint Assessment: (1) Brain aneurysm (2) NPH (normal pressure hydrocephalus) (3) Intracranial shunt (4) Basilar artery aneurysm (5) Weakness (6) CAD (coronary artery disease) (7) PVD (peripheral vascular disease) (8) S/P AAA repair (9) Renal insufficiency (10) Renal lithiasis (11) Ischemic cardiomyopathy (12) Warfarin anticoagulation (13) COPD (chronic obstructive pulmonary disease) (14) SYL (obstructive sleep apnea) (15) Hx of CABG (16) Atrial fibrillation (17) cognitive deficits Plan: Anticoagulation per PCP will be held and maintained on Lovenox DVT PPX dose PT/OT per protocol Monitor cognition closely Fall risk DC once no longer a fall risk per therapy and ok with taking care of him (1) Basilar artery aneurysm (2) Cognitive deficits (3) Intracranial shunt (4) Hx of CABG (5) S/P AAA repair (6) Warfarin anticoagulation (7) Renal lithiasis (8) Ischemic cardiomyopathy (9) Brain aneurysm (10) PVD (peripheral vascular disease) (11) Weakness (12) SYL (obstructive sleep apnea) (13) Renal insufficiency (14) NPH (normal pressure hydrocephalus) (15) CAD (coronary artery disease) (16) Atrial fibrillation (17) COPD (chronic obstructive pulmonary disease) SOLO MENDENHALL DO Apr 09, 2019 09:20
--- NOTE | 2019-04-09 09:33 | NUR ---
provided prayer and Communion.
--- NOTE | 2019-04-09 11:03 | Physical Therapy Daily Note ---
PT Daily Note-Current Subjective Reports he is anxious to discharge home. Smiles and visits throughout therapy session. Transfers Therapy Code Descriptions/Definitions Functional [place] Measure: 0=Not Assessed/NA 4=Minimal Assistance 1=Total Assistance 5=Supervision or Setup 2=Maximal Assistance 6=Modified [place] 3=Moderate Assistance 7=Complete [place] Therapy Quality Codes: 6 Independent with activity with or without an assistive device 5 Patient requires set up or clean up by helper. Patient completes activity by themselves 4 Supervision or touching assist (CGA). [place] provide cues , steadying assist 3 The helper provides less than half the effort to complete the activity 2 The helper provides more than half the effort to complete the activity 1 Dependent. The helper does all the effort to complete an activity 7 Patient refused to complete or attempt activity 9 The patient did not perform the activity before the current illness or injury 88 Not attempted due to Medical conditions or safety concerns Transfers (B, C, W/C) (FIM): 5 Supine to/from Sit: 7 Sit to/from Stand: 5 (SBA for safety; due to impulsivity at times. ) pt does not need physical maycol twith transfers but SBA as he is impulsive at times and needs cues for safety. Gait Training Does the Patient Walk?: Yes Gait (FIM): 4 (SB-CGA depending ) Distance (FIM): 3=150 ft Gait Assistive Device: FWW Spent much time walking on the unit with focus on staying inside walker, heel strike, safety with turning and controlling his speed. Started the therapy session with review of safety and gait technique and patient was able to carryover with only intermittent cues for safety with gait. He does (at times) tend to step outside of his walking specifically with turning and at times gets in a hurry and tends to hit stance at mid foot instead of a heel strike. Pt listens well and corrects with cues. Completed an obstacle course multiple reps that included a curb step, weaving, uneven surface and multiple turns. This was completed with CGA and cues 50% of the time for safe technique. With repetition and cues, pt was able to improve his safety. This focused on functional balance technique in the upright dynamic position. Pt listens to cues and direction and strives to follow. Concern at this time is carryover from visit to visit, but will continue to address this and assess his carryover. He does verbalize understanding of safety but while performing has lapses that do compromise his safety. Exercises Standing: Hamstring curls, Heel/toe raises, 3 way Ex=Flex, Abd, Ext, Marching Standing Reps: 15 Standing ther ex to encourage balance in standing as well as LE strength for improved gait and transfers. Assessment Current Status: Good Progress Pt responds well to skilled cues and does correct. Will continue to assess carryover treatment to treatment of his ability to remember and follow with decreased impulsiveness. PT Short Term Goals Short Term Goals Time Frame: Apr 11, 2019 Transfers (B,C,W/C) (FIM): 5 (met) Gait (FIM): 5 PT Grain Trader Goals Assisted Goals PT Grain Trader Goals Time Frame: Apr 18, 2019 Transfers (B,C,W/C) (FIM): 7 Sit to Lying (QC): 6 Lying-Sitting on Side/Bed(QC): 6 Sit to Stand (QC): 6 Roll Left to Right (QC): 6 Chair/Mgr-ky-Lgkva Xfer(QC): 6 Car Transfer (QC): 6 Does the Patient Walk: Yes Gait (FIM): 6 Gait distance (FIM): 3=150 ft Walk 10 feet (QC): 6 Walk 10ft-Uneven Surface(QC): 6 Walk 50ft with 2 Turns (QC): 6 Walk 150 ft (QC): 6 Gait Assistive Device: FWW Does the Pt use WC or Scooter?: No Stairs (FIM): 6 # of Steps: 12 1 Step (curb) (QC): 6 4 Steps (QC): 6 12 Steps (QC): 6 Picking up an Object (QC): 88 PT Plan Problem List Problem List: Activity Tolerance, Functional Strength, Safety, Balance, Gait, Transfer Treatment/Plan Treatment Plan: Continue Plan of Care Treatment Plan: Bed Mobility, Education, Functional Activity Ronit, Functional Strength, Group Therapy, Gait, Safety, Therapeutic Exercise, Transfers Treatment Duration: Apr 18, 2019 Frequency: At least 5 of 7 days/Wk (IRF) Estimated Hrs Per Day: 1.5 hours per day Patient and/or Family Agrees t: Yes Safety Risks/Education Patient Education: Transfer Techniques, Safety Issues Teaching Recipient: Patient Teaching Methods: Demonstration, Discussion Response to Teaching: Reinforcement Needed Discharge Recommendations Therapy D/C Recommendations: Physical Therapy Home Care (versus outpatient) Time/GCodes Time In: 900 Time Out: 1000 Total Billed Treatment Time: 60 Total Billed Treatment visit GT 30 NM 15 EX 15 LUBA SALAS PT Apr 09, 2019 11:03
--- NOTE | 2019-04-09 11:38 | NUR ---
Patient's progress was discussed today at team huddle, as planned. Patient is making progress; however, remains to be impulsive and unsteady at times. Patient continues to express a desire to discharge [facility]NE, but his prefers for more progress to be made prior to discharge. Patient is scheduled for a follow up with his neurologist at on 04/12, team has proposed that patient take a day pass for the appt and proceed with discharge on Saturday 04/14. This tentative plan will allow patient to receive full therapies today, as well as 04/10, 04/11 and 04/13. WORK TICKET DISTRIBUTOR discussed this plan with patient's spouse, she is in agreement with this plan. Patient is currently in therapy session, WORK TICKET DISTRIBUTOR will also discuss recommendations with patient, once he returns to his room.
[2019-04-09] MEDS: ENOXAPARIN 40 MG/0.4 ML (LOVENOX) SYR SC SCH (12:14)
--- NOTE | 2019-04-09 14:30 | Physical Therapy Daily Note ---
PT Daily Note-Current Subjective Agrees to PT. Wants to ride the Nu step Transfers Therapy Code Descriptions/Definitions Functional [place] Measure: 0=Not Assessed/NA 4=Minimal Assistance 1=Total Assistance 5=Supervision or Setup 2=Maximal Assistance 6=Modified [place] 3=Moderate Assistance 7=Complete [place] Therapy Quality Codes: 6 Independent with activity with or without an assistive device 5 Patient requires set up or clean up by helper. Patient completes activity by themselves 4 Supervision or touching assist (CGA). [place] provide cues , steadying assist 3 The helper provides less than half the effort to complete the activity 2 The helper provides more than half the effort to complete the activity 1 Dependent. The helper does all the effort to complete an activity 7 Patient refused to complete or attempt activity 9 The patient did not perform the activity before the current illness or injury 88 Not attempted due to Medical conditions or safety concerns Treatments Pt is indep with bed mobility and SBA with sit to stand. Pt ambulated into the bathroom with FWW with SBA and toileted. Pt then walked 200 ft to gym with FWW with good carryover of practiced gait pattern from this morning with only occas vc for safety and SBA. Nu step x 15 minutes to promote LE strength and funct ional activity tolerance. Pt returned to room 200 ft with FWW with SBA. Pt in bed with call light in reach and bed alarm activated post treatment. Assessment Current Status: Good Progress Pt did do better with gait and safety and decreased impulsive nature this date. Progressing but still recommend at least SBA with gait at this time. PT Short Term Goals Short Term Goals Time Frame: Apr 11, 2019 Transfers (B,C,W/C) (FIM): 5 (met) Gait (FIM): 5 (met) PT Shelter Goals Shelter Goals PT Shelter Goals Time Frame: Apr 18, 2019 Transfers (B,C,W/C) (FIM): 7 Sit to Lying (QC): 6 Lying-Sitting on Side/Bed(QC): 6 Sit to Stand (QC): 6 Roll Left to Right (QC): 6 Chair/Ddp-gk-Gpjyj Xfer(QC): 6 Car Transfer (QC): 6 Does the Patient Walk: Yes Gait (FIM): 6 Gait distance (FIM): 3=150 ft Walk 10 feet (QC): 6 Walk 10ft-Uneven Surface(QC): 6 Walk 50ft with 2 Turns (QC): 6 Walk 150 ft (QC): 6 Gait Assistive Device: FWW Does the Pt use WC or Scooter?: No Stairs (FIM): 6 # of Steps: 12 1 Step (curb) (QC): 6 4 Steps (QC): 6 12 Steps (QC): 6 Picking up an Object (QC): 88 PT Plan Problem List Problem List: Activity Tolerance, Functional Strength, Safety, Balance, Gait, Transfer Treatment/Plan Treatment Plan: Continue Plan of Care Treatment Plan: Bed Mobility, Education, Functional Activity Ronit, Functional Strength, Group Therapy, Gait, Safety, Therapeutic Exercise, Transfers Treatment Duration: Apr 18, 2019 Frequency: At least 5 of 7 days/Wk (IRF) Estimated Hrs Per Day: 1.5 hours per day Patient and/or Family Agrees t: Yes Safety Risks/Education Patient Education: Transfer Techniques, Safety Issues Teaching Recipient: Patient Teaching Methods: Discussion Response to Teaching: Return Demonstration, Reinforcement Needed Time/GCodes Time In: 1330 Time Out: 1353 Total Billed Treatment Time: 23 Total Billed Treatment visit EX 15 GT 8 LUBA SALAS PT Apr 09, 2019 14:30
--- NOTE | 2019-04-09 14:33 | Occupational Ther Daily Note ---
OT Current Status-Daily Note Subjective No pain reported. Appearance Pt. is asleep in chair but awakens easily. Pt. is wearing cochlear implant, and is able to hear this therapist better today. Mental Status/Objective Patient Orientation: Person, Place Therapy Code Descriptions/Definitions Functional [place] Measure: 0=Not Assessed/NA 4=Minimal Assistance 1=Total Assistance 5=Supervision or Setup 2=Maximal Assistance 6=Modified [place] 3=Moderate Assistance 7=Complete [place] ADL-Treatment Therapy Code Descriptions/Definitions Functional [place] Measure: 0=Not Assessed/NA 4=Minimal Assistance 1=Total Assistance 5=Supervision or Setup 2=Maximal Assistance 6=Modified [place] 3=Moderate Assistance 7=Complete [place] Therapy Quality Codes: 6 Independent with activity with or without an assistive device 5 Patient requires set up or clean up by helper. Patient completes activity by themselves 4 Supervision or touching assist (CGA). [place] provide cues , steadying assist 3 The helper provides less than half the effort to complete the activity 2 The helper provides more than half the effort to complete the activity 1 Dependent. The helper does all the effort to complete an activity 7 Patient refused to complete or attempt activity 9 The patient did not perform the activity before the current illness or injury 88 Not attempted due to Medical conditions or safety concerns Transfers (B, C, W/C) (FIM): 4 Other Treatment Pt. already dressed and declines showering stating that he showered yesterday. Agrees to work with OT. Pt. ambulated with OT to therapy gym with CGA. Completed 15 minutes on armbike to increase overall strength and endurance. Pt. then participated in series of balance and standing balance activities. Stood without walker while OT provided min assist, and practiced catching/throwing two different size balls back. Ball was thrown to him in different planes, and pt. encouraged to reach out for it. Noted that pt. has base of support that sometimes causes him to lean backward in stance. Worked on bending knees and making wider ROSARIO. Pt. would often lean back on heels and was encouraged to be aware of his body. Stood at parallel bars with support while kicking ball back and forth. This was difficult for pt. and he would often kick quickly, losing balance at times. Pt. practiced standing slowly, sitting slowly, turning with walker slowly, and being careful not to run into items when ambulating. Pt. is somewhat impulsive and quick with his movements. Pt. does verbalize understanding. Spouse in room when pt. taken back and educated on what pt. had worked on with therapy. Verbalizes understanding. Education OT Patient Education: Correct positioning, Exercise program, Modified ADL techniques, Progress toward Goal/Update tx plan, Purpose of tx/functional activities, Reviewed precautions, Rehab process, Transfer techniques Teaching Recipient: Patient Teaching Methods: Demonstration, Discussion Response to Teaching: Verbalize Understanding, Return Demonstration OT Short Term Goals Short Term Goals Time Frame: Apr 11, 2019 Lower Body Dressing(FIM): 5 Toileting(FIM): 5 Transfers (B,C,W/C) (FIM): 5 (met) Toilet/Commode Transfer(FIM): 5 Additional Short Term Goals: 1-Demonstrate ADL Tasks, 2-Verbalize Understanding, 3-ImproveStrength/Ronit 1=Demonstrate adherence to instructed precautions during ADL tasks. 2=Patient will verbalize/demonstrate understanding of assistive d evices/modifications for ADL. 3=Patient will improve strength/tolerance for activity to enable patient to perform ADL's. OT Correction Goals Silverware Washer Goals Time Frame: Apr 25, 2019 Eating (FIM): 7 Eating (QC): 6 Groomin Oral Hygiene (QC): 6 Bathing(FIM): 5 Shower/Bathe Self (QC): 5 Upper Body Dressing(FIM): 6 Upper Body Dressing (QC): 6 Lower Body Dressing(FIM): 6 Lower Body Dressing (QC): 6 On/Off Footwear (QC): 6 Toileting(FIM): 6 Toileting Hygiene (QC): 6 Toilet/Commode Transfer(FIM): 6 Toilet/Commode Transfer (QC): 6 Shower Transfer(FIM): 5 Additional Goals: 1-Demonstrate ADL Tasks, 2-Verbalize Understanding, 3- ImproveStrength/Ronit 1=Demonstrate adherence to instructed precautions during ADL tasks. 2=Patient will verbalize/demonstrate understanding of assistive devices/modifications for ADL. 3=Patient will improve strength/tolerance for activity to enable patient to perform ADL's. OT Education/Plan Problem List/Assessment Assessment: Decreased Activ Tolerance, Decreased Safety Aware, Impaired I ADL's, Impaired Self-Care Skills Discharge Recommendations Plan/Recommendations: Continue POC Therapy D/C Recommendations: Home w/ Family Support, Occupational Therapy Home Care Treatment Plan/Plan of Care Treatment,Training & Education: Yes Patient would benefit from OT for education, treatment and training to promote independence in ADL's, mobility, safety and/or upper extremity function for ADL's. Plan of Care: ADL Retraining, Functional Mobility, UE Funct Exercise/Act Treatment Duration: Apr 25, 2019 Frequency: At least 5 of 7 days/Wk (IRF) Estimated Hrs Per Day: 1.5 hours per day Agreement: Yes Rehab Potential: Good Time/GCodes Start Time: 11:00 Stop Time: 12:15 Total Time Billed (hr/min): 75 Billed Treatment Time 1, Ex x 15minutes, FA x 60minutes MERNA BRANCH OT Apr 09, 2019 14:33
--- NOTE | 2019-04-09 16:14 | Speech Therapy Daily Note ---
Speech Daily Progress Note Subjective Date Seen by Provider: Apr 09, 2019 Time Seen by Provider: 00:30 The patient was resting in his bed waiting on therapy to start. Objective The patient completed problem solving tasks with 80% accuracy given minimal verbal cues. Assessment Assessment Current Status: Good Progress Communication Comprehension: 6 Expression: 6 Social Cognition Social Interaction: 7 Problem Solvin Memory: 5 Speech Short Term Goals Short Term Goals Short Term Goals 1) The patient will complete memory tasks with 90% or greater with minimal verbal cues. 2) The patient will complete problem solving tasks with 90% or greater with minimal verbal cues. 3) The patient will demonstrate following multi-step directions with 90% or greater with minimal verbal cues. Speech Group Home Goals Group Home Goals The patient will improve his safety and independence in order to return home safely. Speech-Plan Patient/Family Goals Patient/Family Goals: The patient plans on returning home with his post rehab. Treatment Plan Speech Therapy Treatment Plan: Continue Plan of Care The patient is making good progress as a result of skilled therapy. Treatment Duration: Apr 13, 2019 Frequency: 5 times per week Estimated Hrs Per Day: .5 hour per day Rehab Potential: Good Barriers to Learning: Mild memory and problem solving deficits. Pt/Family Agrees to Plan: Yes Safety Risks/Education Teaching Recipient: Patient Teaching Methods: Discussion Response to Teaching: Verbalize Understanding Education Topics Provided: Continued safety Time Speech Therapy Time In: 08:30 Speech Therapy Time Out: 09:00 Total Billed Time: 30 Billed Treatment Time [address] Apr 09, 2019 16:14
[2019-04-09 17:42] VITALS: BP 135/77
--- NOTE | 2019-04-09 20:21 | NUR ---
PT WENT WITH DAUGHTER IN W/C OFF FLOOR FOR A "WALK."
[2019-04-09] MEDS: FLUTICASONE NASAL SPRAY (FLONASE) 16 GM BTL NS SCH (20:58)
[2019-04-09] MEDS: ATORVASTATIN 80 MG (LIPITOR) TABLET PO SCH (20:58)
[2019-04-09] MEDS: rOPINIRole 0.25 MG (REQUIP) TAB PO SCH (20:58)
[2019-04-09] MEDS: TAMSULOSIN 0.4 MG (FLOMAX) CAP PO SCH (20:58)
--- NOTE | 2019-04-09 21:05 | NUR ---
PT RETURNED FROM HIS WALK WITH DAUGHTER. WHEN HE TRANSFERRED FROM W/C TO BED HE BECAME SLIGHTLY DIZZY. BP CHECKED AND IT WAS 144/81. PT STATED HE WAS FINE NOW. DISCUSSED CAUSES OF DIZZINESS AND EDUCATED ON ORTHOSTATIC HYPOTENSION AND HOW IT CAN AFFECT ANYONE AT DIFFERENT TIMES. ADVISED I WILL MAKE A NOTE AND PASS IT ON TO DAY SHIFT TO MONITOR.
[2019-04-10 06:11] VITALS: BP 127/70
[2019-04-10 07:07] LABS: BASOPHILS % (AUTO) 0 % (0-10); EOSINOPHILS # (AUTO) 0.5 10^3/uL (0.0-0.3); EOSINOPHILS % (AUTO) 6 % (0-10); HEMATOCRIT 38 % (40-54); HEMOGLOBIN 12.8 G/DL (13.3-17.7); LYMPHOCYTES # (AUTO) 1.2 X 10^3 (1.0-4.0); LYMPHOCYTES % (AUTO) 15 % (12-44); MEAN CORPUSCULAR HEMOGLOBIN 30 PG (25-34); MEAN CORPUSCULAR HGB CONC 33 G/DL (32-36); MEAN CORPUSCULAR VOLUME 90 FL (80-99); MONOCYTES # (AUTO) 0.6 X 10^3 (0.0-1.0); MONOCYTES % (AUTO) 7 % (0-12); NEUTROPHILS # (AUTO) 5.9 X 10^3 (1.8-7.8); NEUTROPHILS % (AUTO) 72 % (42-75); PLATELET COUNT 209 10^3/uL (130-400); RED CELL DISTRIBUTION WIDTH 14.7 % (10.0-14.5); WHITE BLOOD COUNT 8.2 10^3/uL (4.3-11.0)
[2019-04-10 07:27] LABS: ALBUMIN 3.9 GM/DL (3.2-4.5); BILIRUBIN,TOTAL 1.3 MG/DL (0.1-1.0); CALCIUM 9.5 MG/DL (8.5-10.1); CREATININE SERUM 1.27 MG/DL (0.60-1.30); POTASSIUM 4.4 MMOL/L (3.6-5.0); TOTAL PROTEIN 6.9 GM/DL (6.4-8.2)
[2019-04-10 08:00] VITALS: BP 154/83
--- NOTE | 2019-04-10 08:00 | NUR ---
FEELS MAY BE VOIDING A LITTLE MORE THAN USUAL. WILL CONTINUE TO MONITOR.
[2019-04-10] MEDS: LOSARTAN 50 MG (COZAAR) TAB PO SCH (08:32)
[2019-04-10] MEDS: LORATADINE (CLARITIN) 10 MG TAB PO SCH (08:32)
[2019-04-10] MEDS: AMIODARONE 200 MG (CORDARONE) TAB PO SCH ×3 (08:32→21:30)
[2019-04-10] MEDS: ALLOPURINOL 100 MG (ZYLOPRIM) TAB PO SCH (08:32)
[2019-04-10] MEDS: ASPIRIN E.C. 325 MG (ECOTRIN) TABLET PO SCH (08:32)
[2019-04-10] MEDS: VITAMIN D3 5,000 UNITS (CHOLECALCIFEROL ) CAPSULE PO SCH (08:32)
[2019-04-10] MEDS: SPIRONOLACTONE 25 MG (ALDACTONE) TAB PO SCH (08:33)
[2019-04-10] MEDS: MULTIVIT W/MINERALS TAB (THERAGRAN M) PO SCH (08:33)
[2019-04-10] MEDS: PANTOPRAZOLE 40 MG (PROTONIX) TAB PO SCH (08:33)
[2019-04-10] MEDS: POLYETHYLENE GLYCOL 17 GM (MIRALAX) PACK PO SCH ×2 (08:34→21:30)
[2019-04-10] MEDS: SENNA W/DOCUSATE (SENOKOT S) TABLET PO SCH ×2 (08:34→21:30)
--- NOTE | 2019-04-10 09:14 | PM&R Progress Note ---
Subjective HPI/CC On Admission Date Seen by Provider: Apr 10, 2019 Time Seen by Provider: 09:00 CC: Debility HPI: HPI: This is a Pt of Dr. 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 He was found to have altered gate and multiple falls and hearing loss over the past year that worsened requiring cochlear implants and further evaluation of the disequilibrium and neurologist was evaluating the Pt to have the large Basilar aneurysm so he was sent to for further evaluation. 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 He is on Coumadin maintained on adequate dosing for stroke prophylaxis from the atrial fibrillation and he is s/p AIR TWISTER WINDER shunts with no complication but management of the aneurysm throughout the weekend that resulted in improvement in the mobility and ambulation and will need fine tuning for safety prevention and fall prevention and ultimately return home with his to return to prior level of functioning. Dr. Butcher PCP will be consulted. He has not had a BM for 1 week so will initiate an aggressive regimen for that. At this current time he doesn't have any pain and he is very hard of hearing even with the cochlear implants. Subjective/Events-last exam Pt doing very well. Trying to pace himself and not go to fast to place himself at risk for falls. Has a [place] appointment with a neurosurgeon April 12. Bowels are moving. Had dizziness last night unrelated to BP level No pain is reported. No seizures. Will start Coumadin under the direction of neurosurgery. Patient still too high of risk of falls to be allowed DC so will need to val ssure the patient and continue working Review of Systems General: Fatigue Neurological: Weakness, Incoordination Objective Exam Vital Signs Vital Signs Date Time Temp Pulse Resp B/P (MAP) Pulse Ox O2 Delivery O2 Flow Rate FiO2 04/10/19 06:11 98.2 65 20 127/70 (89) 95 Room Air Capillary Refill : General Appearance: No Apparent Distress, WD/WN, Chronically ill, Obese HEENT: PERRL/EOMI, Normal ENT Inspection, Pharynx Normal, Moist Mucous Membranes Neck: Full Range of Motion, Normal Inspection, Non Tender, Supple Respiratory: Chest Non Tender, Lungs Clear, Normal Breath Sounds, No Accessory Muscle Use, No Respiratory Distress Cardiovascular: Regular Rate, Rhythm, No Edema, No Gallop, No JVD, No Murmur Gastrointestinal: Normal Bowel Sounds, No Organomegaly, No Pulsatile Mass, Non Tender, Soft Back: Normal Inspection, No CVA Tenderness, No Vertebral Tenderness Extremity: Normal Capillary Refill, Normal Inspection, Normal Range of Motion, Non Tender, No Calf Tenderness, No Pedal Edema Neurologic/Psychiatric: Alert, Oriented x3, No Motor/Sensory Deficits, Normal Mood/Affect, manager eligibility II-XII Norm as Tested, Abnormal Gait, Motor Weakness (lower legs 4/5) Skin: Normal Color, Warm/Dry Lymphatic: No Adenopathy Results/Procedures Lab Laboratory Tests 04/10/19 06:54 Patient resulted labs reviewed. FIM Transfers Therapy Code Descriptions/Definitions Functional [place] Measure: 0=Not Assessed/NA 4=Minimal Assistance 1=Total Assistance 5=Supervision or Setup 2=Maximal Assistance 6=Modified [place] 3=Moderate Assistance 7=Complete [place] Therapy Quality Codes: 6 Independent with activity with or without an assistive device 5 Patient requires set up or clean up by helper. Patient completes activity by themselves 4 Supervision or touching assist (CGA). [place] provide cues , steadying assist 3 The helper provides less than half the effort to complete the activity 2 The helper provides more than half the effort to complete the activity 1 Dependent. The helper does all the effort to complete an activity 7 Patient refused to complete or attempt activity 9 The patient did not perform the activity before the current illness or injury 88 Not attempted due to Medical conditions or safety concerns Transfers (B, C, W/C) (FIM): 4 Roll Left to Right (QC): 4 Supine to/from Sit: 7 Sit to/from Stand: 5 (SBA for safety; due to impulsivity at times. ) Sit to Lying (QC): 4 Sit to Stand (QC): 4 Chair/Jrc-rk-Pqxmb Xfer(QC): 4 Gait Training Does the Patient Walk?: Yes Gait (FIM): 4 (SB-CGA depending ) Distance (FIM): 3=150 ft Distance: 200 x2 Walk 10 feet (QC): 4 Walk 50 ft with 2 Turns(QC): 4 Walk 150 ft (QC): 4 Walking 10ft/uneven surface-QC: 4 Gait Level of Assist: 4 (CGA provided 2* occasional unsteadiness) Gait Persons Needed: 1 Gait Assistive Device: FWW Wheelchair Training Does the Pt Use a Wheelchair?: No Stair Training Stair Training: Handrails/: 2 handrails Stairs (FIM): 2 #of Steps: 4 1 Step (curb) (QC): 4 4 Steps (QC): 4 12 Steps (QC): 88 Level of Assist: 4 (CGA for safety) Balance Picking up an Object (QC): 88 Mental Status/Objective Comprehension: 6 Expression: 6 Social Interaction: 7 Problem Solvin Memory: 5 ADL-Treatment Feedin (set up by report) Eating (QC): 5 Groomin (Set up at sink to brush hair seated in chair.) Oral Hygiene (QC): 5 Bathin (CGA at times in stance to wash all parts.) Shower/Bathe Self (QC): 4 Upper Extremity Dressin Upper Body Dressing (QC): 4 Lower Extremity Dressin (CGA at times seated while bending over.) Lower Body Dressing (QC): 4 On/Off Footwear (QC): 4 Toiletin Toileting Hygiene (QC): 4 Toilet/Commode Transfer: 4 Toilet Transfer (QC): 4 Shower: 4 Assessment/Plan Assessment and Plan Assess & Plan/Chief Complaint Assessment: (1) Brain aneurysm (2) NPH (normal pressure hydrocephalus) (3) Intracranial shunt (4) Basilar artery aneurysm (5) Weakness (6) CAD (coronary artery disease) (7) PVD (peripheral vascular disease) (8) S/P AAA repair (9) Renal insufficiency (10) Renal lithiasis (11) Ischemic cardiomyopathy (12) Warfarin anticoagulation (13) COPD (chronic obstructive pulmonary disease) (14) SYL (obstructive sleep apnea) (15) Hx of CABG (16) Atrial fibrillation (17) cognitive deficits Plan: Anticoagulation per PCP will be held and maintained on Lovenox DVT PPX dose PT/OT per protocol Monitor cognition closely Fall risk DC once no longer a fall risk per therapy and ok with taking care of him (1) Basilar artery aneurysm (2) Cognitive deficits (3) Intracranial shunt (4) Hx of CABG (5) S/P AAA repair (6) Warfarin anticoagulation (7) Renal lithiasis (8) Ischemic cardiomyopathy (9) Brain aneurysm (10) PVD (peripheral vascular disease) (11) Weakness (12) SYL (obstructive sleep apnea) (13) Renal insufficiency (14) NPH (normal pressure hydrocephalus) (15) CAD (coronary artery disease) (16) Atrial fibrillation (17) COPD (chronic obstructive pulmonary disease) SOLO MENDENHALL DO Apr 10, 2019 09:14
--- NOTE | 2019-04-10 12:20 | Physical Therapy Daily Note ---
PT Daily Note-Current Subjective Pt sitting up in bed upon arrival. Pt agrees to PT. Pt would like to D/C [facility]. Pain Location: No Pain Reported Mental Status Patient Orientation: Person, Place, Situation Transfers Therapy Code Descriptions/Definitions Functional [place] Measure: 0=Not Assessed/NA 4=Minimal Assistance 1=Total Assistance 5=Supervision or Setup 2=Maximal Assistance 6=Modified [place] 3=Moderate Assistance 7=Complete [place] Therapy Quality Codes: 6 Independent with activity with or without an assistive device 5 Patient requires set up or clean up by helper. Patient completes activity by themselves 4 Supervision or touching assist (CGA). [place] provide cues , steadying assist 3 The helper provides less than half the effort to complete the activity 2 The helper provides more than half the effort to complete the activity 1 Dependent. The helper does all the effort to complete an activity 7 Patient refused to complete or attempt activity 9 The patient did not perform the activity before the current illness or injury 88 Not attempted due to Medical conditions or safety concerns Scootin Rollin Supine to/from Sit: 6 Sit to/from Stand: 5 Sit to Stand (QC): 5 Weight Bearing Full Weight Bearing Full Weight Bearing Gait Training Does the Patient Walk?: Yes Gait (FIM): 5 Distance (FIM): 3=150 ft Distance: 150' x2 Walk 10 feet (QC): 5 Walk 50 ft with 2 Turns(QC): 5 Walk 150 ft (QC): 5 Gait Level of Assist: 5 Gait Persons Needed: 1 Gait Assistive Device: FWW Pt is impulsive and needs reminders to slow down when walking dom[place]. with turns for safety and balance. Wheelchair Training Does the Pt Use a Wheelchair?: No Exercises NuStep Minutes: 15 NuStep Workload: 10 Treatments Pt is able to don shoes but needs reminders to not bend over for safety. PROOF MACHINE OPERATOR SUPERVISOR en courages pt to bring leg up to him instead. Pt transfers to standing and ambulates in hallway. Pt is using NuStep for 15m at WL 10 as he requested. Pt takes short rest before ambulating in hallway again. Pt returns to room at end of tx. Pt resting in bed with all needs met, call light in hand. Assessment Current Status: Good Progress Pt needs reminders to slow down when ambulating for safety and balance. PT Short Term Goals Short Term Goals Time Frame: Apr 11, 2019 Transfers (B,C,W/C) (FIM): 5 (met) Gait (FIM): 5 (met) PT Senior Care Goals Celery Stripper Goals PT Senior Care Goals Time Frame: Apr 18, 2019 Transfers (B,C,W/C) (FIM): 7 Sit to Lying (QC): 6 Lying-Sitting on Side/Bed(QC): 6 Sit to Stand (QC): 6 Roll Left to Right (QC): 6 Chair/Zmv-di-Atvjy Xfer(QC): 6 Car Transfer (QC): 6 Does the Patient Walk: Yes Gait (FIM): 6 Gait distance (FIM): 3=150 ft Walk 10 feet (QC): 6 Walk 10ft-Uneven Surface(QC): 6 Walk 50ft with 2 Turns (QC): 6 Walk 150 ft (QC): 6 Gait Assistive Device: FWW Does the Pt use WC or Scooter?: No Stairs (FIM): 6 # of Steps: 12 1 Step (curb) (QC): 6 4 Steps (QC): 6 12 Steps (QC): 6 Picking up an Object (QC): 88 PT Plan Problem List Problem List: Activity Tolerance, Safety Treatment/Plan Treatment Plan: Continue Plan of Care Treatment Plan: Bed Mobility, Education, Functional Activity Ronit, Functional Strength, Group Therapy, Gait, Safety, Therapeutic Exercise, Transfers Treatment Duration: Apr 18, 2019 Frequency: At least 5 of 7 days/Wk (IRF) Estimated Hrs Per Day: 1.5 hours per day Patient and/or Family Agrees t: Yes Safety Risks/Education Patient Education: Gait Training, Correct Positioning, Safety Issues Teaching Recipient: Patient Teaching Methods: Discussion Response to Teaching: Verbalize Understanding Time/GCodes Time In: 1045 Time Out: 1130 Total Billed Treatment Time: 45 Total Billed Treatment 1, GT (15m), EX (20m) & FA (10m) G Codes Necessary: No RAFI GARCIA PROOF MACHINE OPERATOR SUPERVISOR Apr 10, 2019 12:19
[2019-04-10] MEDS: ENOXAPARIN 40 MG/0.4 ML (LOVENOX) SYR SC SCH (12:33)
--- NOTE | 2019-04-10 14:01 | Occupational Ther Daily Note ---
OT Current Status-Daily Note Subjective No pain reported. Appearance Pt. in bed. Agrees to work with OT. Mental Status/Objective Patient Orientation: Person, Place Therapy Code Descriptions/Definitions Functional [place] Measure: 0=Not Assessed/NA 4=Minimal Assistance 1=Total Assistance 5=Supervision or Setup 2=Maximal Assistance 6=Modified [place] 3=Moderate Assistance 7=Complete [place] ADL-Treatment Therapy Code Descriptions/Definitions Functional [place] Measure: 0=Not Assessed/NA 4=Minimal Assistance 1=Total Assistance 5=Supervision or Setup 2=Maximal Assistance 6=Modified [place] 3=Moderate Assistance 7=Complete [place] Therapy Quality Codes: 6 Independent with activity with or without an assistive device 5 Patient requires set up or clean up by helper. Patient completes activity by themselves 4 Supervision or touching assist (CGA). [place] provide cues , steadying assist 3 The helper provides less than half the effort to complete the activity 2 The helper provides more than half the effort to complete the activity 1 Dependent. The helper does all the effort to complete an activity 7 Patient refused to complete or attempt activity 9 The patient did not perform the activity before the current illness or injury 88 Not attempted due to Medical conditions or safety concerns Bathing (FIM): 5 Shower/Bathe Self (QC): 4 Upper Body (FIM): 5 Upper Body Dressing (QC): 5 Lower Body Dressing (FIM): 4 (Pt. utilized DS but declined using sock aide. Pt. has difficulty with bending over, and had several LOB while bending to don socks.) Lower Body Dressing (QC): 4 On/Off Footwear (QC): 4 Transfers (B, C, W/C) (FIM): 4 (Min assist in stance and to walk due to LOB throughout treatment. Pt. requires cues to slow down, sequence his steps, and to turn slower and safer using walker.) Shower Transfer(FIM): 4 Other Treatment Pt. agrees to shower and dress in bathroom. Noted difficulty with bending over for LE clothing. Ambulated to therapy gym with CGA and pt. completed 15 minutes on armbike to increase overall strength. Transferred to mat and worked on sitting balance activities in multiple planes. No LOB noted in sitting, and no dizziness noted as well. Completed ambulation activities with cues and emphasis placed on walking slower, and turning slower. Noted that pt. can get "tripped up" using walker when attempting to turn in his walker. Ambulated back to room and all needs were met. Education OT Patient Education: Correct positioning, Exercise program, Modified ADL techniques, Progress toward Goal/Update tx plan, Purpose of tx/functional activities, Reviewed precautions, Rehab process, Transfer techniques Teaching Recipient: Patient Teaching Methods: Demonstration, Discussion Response to Teaching: Verbalize Understanding, Return Demonstration OT Short Term Goals Short Term Goals Time Frame: Apr 11, 2019 Lower Body Dressing(FIM): 5 Toileting(FIM): 5 Transfers (B,C,W/C) (FIM): 5 (met) Toilet/Commode Transfer(FIM): 5 Additional Short Term Goals: 1-Demonstrate ADL Tasks, 2-Verbalize Understanding, 3-ImproveStrength/Ronit 1=Demonstrate adherence to instructed precautions during ADL tasks. 2=Patient will verbalize/demonstrate understanding of assistive devices/modifications for ADL. 3=Patient will improve strength/tolerance for activity to enable patient to perform ADL's. OT Nursing Home Goals Nursing Home Goals Time Frame: Apr 25, 2019 Eating (FIM): 7 Eating (QC): 6 Groomin Oral Hygiene (QC): 6 Bathing(FIM): 5 Shower/Bathe Self (QC): 5 Upper Body Dressing(FIM): 6 Upper Body Dressing (QC): 6 Lower Body Dressing(FIM): 6 Lower Body Dressing (QC): 6 On/Off Footwear (QC): 6 Toileting(FIM): 6 Toileting Hygiene (QC): 6 Toilet/Commode Transfer(FIM): 6 Toilet/Commode Transfer (QC): 6 Shower Transfer(FIM): 5 Additional Goals: 1-Demonstrate ADL Tasks, 2-Verbalize Understanding, 3- ImproveStrength/Ronit 1=Demonstrate adherence to instructed precautions during ADL tasks. 2=Patient will verbalize/demonstrate understanding of assistive devices/mod ifications for ADL. 3=Patient will improve strength/tolerance for activity to enable patient to perform ADL's. OT Education/Plan Problem List/Assessment Assessment: Decreased Activ Tolerance, Impaired Funct Balance, Impaired I ADL's, Impaired Self-Care Skills Discharge Recommendations Plan/Recommendations: Continue POC Therapy D/C Recommendations: Home w/ Family Support, Occupational Therapy Home Care Treatment Plan/Plan of Care Treatment,Training & Education: Yes Patient would benefit from OT for education, treatment and training to promote independence in ADL's, mobility, safety and/or upper extremity function for ADL's. Plan of Care: ADL Retraining, Functional Mobility, UE Funct Exercise/Act Treatment Duration: Apr 25, 2019 Frequency: At least 5 of 7 days/Wk (IRF) Estimated Hrs Per Day: 1.5 hours per day Agreement: Yes Rehab Potential: Good Time/GCodes Start Time: 09:45 Stop Time: 10:45 Total Time Billed (hr/min): 60 Billed Treatment Time 1, ADL x 30minutes, Ex x 15minutes, FA x 15minutes MERNA BRANCH OT Apr 10, 2019 14:01
--- NOTE | 2019-04-10 14:07 | Occupational Ther Daily Note ---
OT Current Status-Daily Note Subjective No pain reported. Appearance Pt. in bathroom when OT entered room. Mental Status/Objective Patient Orientation: Person, Place Therapy Code Descriptions/Definitions Functional [place] Measure: 0=Not Assessed/NA 4=Minimal Assistance 1=Total Assistance 5=Supervision or Setup 2=Maximal Assistance 6=Modified [place] 3=Moderate Assistance 7=Complete [place] ADL-Treatment Therapy Code Descriptions/Definitions Functional [place] Measure: 0=Not Assessed/NA 4=Minimal Assistance 1=Total Assistance 5=Supervision or Setup 2=Maximal Assistance 6=Modified [place] 3=Moderate Assistance 7=Complete [place] Therapy Quality Codes: 6 Independent with activity with or without an assistive device 5 Patient requires set up or clean up by helper. Patient completes activity by themselves 4 Supervision or touching assist (CGA). [place] provide cues , steadying assist 3 The helper provides less than half the effort to complete the activity 2 The helper provides more than half the effort to complete the activity 1 Dependent. The helper does all the effort to complete an activity 7 Patient refused to complete or attempt activity 9 The patient did not perform the activity before the current illness or injury 88 Not attempted due to Medical conditions or safety concerns Toileting (FIM): 6 Toileting Hygiene (QC): 6 Transfers (B, C, W/C) (FIM): 4 Toilet/Commode Transfer (FIM): 4 Toilet Transfer (QC): 4 Other Treatment Pt. able to cleanse self and pull down/up pants. Transferred with CGA for safety. Washed hands at sink and then ambulated to therapy gym. Went to parallel bars and pt. practiced turning safely in bars, without being in a hurry and with taking small steps. Pt. has difficulty with this. Practiced this several times, but gets in hurry overall. Ambulated with walker in dining area with cues to take his time. Practiced slow turns and using walker close to him. Pt. encouraged to always remember this. Verbalizes understanding. All needs met back in room. Education OT Patient Education: Correct positioning, Exercise program, Modified ADL techniques, Progress toward Goal/Update tx plan, Purpose of tx/functional activities, Reviewed precautions, Rehab process, Transfer techniques Teaching Recipient: Patient Teaching Methods: Demonstration, Discussion Response to Teaching: Verbalize Understanding, Return Demonstration OT Short Term Goals Short Term Goals Time Frame: Apr 11, 2019 Lower Body Dressing(FIM): 5 Toileting(FIM): 5 Transfers (B,C,W/C) (FIM): 5 (met) Toilet/Commode Transfer(FIM): 5 Additional Short Term Goals: 1-Demonstrate ADL Tasks, 2-Verbalize Understanding, 3-ImproveStrength/Ronit 1=Demonstrate adherence to instructed precautions during ADL tasks. 2=Patient will verbalize/demonstrate understanding of assistive devices/modifications for ADL. 3=Patient will improve strength/tolerance for activity to enable patient to perform ADL's. OT Project Manager Retail Goals Snf Goals Time Frame: Apr 25, 2019 Eating (FIM): 7 Eating (QC): 6 Groomin Oral Hygiene (QC): 6 Bathing(FIM): 5 Shower/Bathe Self (QC): 5 Upper Body Dressing(FIM): 6 Upper Body Dressing (QC): 6 Lower Body Dressing(FIM): 6 Lower Body Dressing (QC): 6 On/Off Footwear (QC): 6 Toileting(FIM): 6 Toileting Hygiene (QC): 6 Toilet/Commode Transfer(FIM): 6 Toilet/Commode Transfer (QC): 6 Shower Transfer(FIM): 5 Additional Goals: 1-Demonstrate ADL Tasks, 2-Verbalize Understanding, 3-ImproveStrength/Ronit 1=Demonstrate adherence to instructed precautions during ADL tasks. 2=Patient will verbalize/demonstrate understanding of assistive devices/modifications for ADL. 3=Patient will improve strength/tolerance for activity to enable patient to perform ADL's. OT Education/Plan Problem List/Assessment Assessment: Decreased Activ Tolerance, Impaired Funct Balance, Impaired I ADL's, Impaired Self-Care Skills Discharge Recommendations Plan/Recommendations: Continue POC Therapy D/C Recommendations: Home w/ Family Support, Occupational Therapy Home Care Treatment Plan/Plan of Care Treatment,Training & Education: Yes Patient would benefit from OT for education, treatment and training to promote independence in ADL's, mobility, safety and/or upper extremity function for ADL's. Plan of Care: ADL Retraining, Functional Mobility, UE Funct Exercise/Act Treatment Duration: Apr 25, 2019 Frequency: At least 5 of 7 days/Wk (IRF) Estimated Hrs Per Day: 1.5 hours per day Agreement: Yes Rehab Potential: Good Time/GCodes Start Time: 13:00 Stop Time: 13:15 Total Time Billed (hr/min): 15 Billed Treatment Time 1, FA MERNA BRANCH OT Apr 10, 2019 14:07
--- NOTE | 2019-04-10 14:08 | Physical Therapy Daily Note ---
PT Daily Note-Current Subjective Pt laying Supine in bed upon arrival. Pt agrees to PT. Pain Location: No Pain Reported Mental Status Patient Orientation: Person, Place, Situation Transfers Therapy Code Descriptions/Definitions Functional [place] Measure: 0=Not Assessed/NA 4=Minimal Assistance 1=Total Assistance 5=Supervision or Setup 2=Maximal Assistance 6=Modified [place] 3=Moderate Assistance 7=Complete [place] Therapy Quality Codes: 6 Independent with activity with or without an assistive device 5 Patient requires set up or clean up by helper. Patient completes activity by themselves 4 Supervision or touching assist (CGA). [place] provide cues , steadying assist 3 The helper provides less than half the effort to complete the activity 2 The helper provides more than half the effort to complete the activity 1 Dependent. The helper does all the effort to complete an activity 7 Patient refused to complete or attempt activity 9 The patient did not perform the activity before the current illness or injury 88 Not attempted due to Medical conditions or safety concerns Scootin Rollin Roll Left to Right (QC): 6 Supine to/from Sit: 6 Sit to/from Stand: 5 Sit to Lying (QC): 6 Sit to Stand (QC): 5 Weight Bearing Full Weight Bearing Full Weight Bearing Gait Training Does the Patient Walk?: Yes Gait (FIM): 5 Distance (FIM): 3=150 ft Distance: 750' Walk 10 feet (QC): 5 Walk 50 ft with 2 Turns(QC): 5 Walk 150 ft (QC): 5 Gait Level of Assist: 5 Gait Persons Needed: 1 Gait Assistive Device: FWW Pt practiced ambulating on carpet and across thresholds. Pt needs VC to keep FWW on floor at all times for safety. Wheelchair Training Does the Pt Use a Wheelchair?: No Treatments Pt transfers from bed to standing using FWW after donning shoes. Pt ambulates in hallway and on main floor hospital to practice ambulation on carpet and across thresholds. Pt returns to room at end of tx to rest in bed. Pt has all needs met, call light in hand. Assessment Current Status: Good Progress Pt needs VC at times for safety with ambulation. PT Short Term Goals Short Term Goals Time Frame: Apr 11, 2019 Transfers (B,C,W/C) (FIM): 5 (met) Gait (FIM): 5 (met) PT Jail Goals Jail Goals PT Jail Goals Time Frame: Apr 18, 2019 Transfers (B,C,W/C) (FIM): 7 Sit to Lying (QC): 6 Lying-Sitting on Side/Bed(QC): 6 Sit to Stand (QC): 6 Rollin Roll Left to Right (QC): 6 Chair/Mub-fu-Undjd Xfer(QC): 6 Car Transfer (QC): 6 Does the Patient Walk: Yes Gait (FIM): 6 Gait distance (FIM): 3=150 ft Walk 10 feet (QC): 6 Walk 10ft-Uneven Surface(QC): 6 Walk 50ft with 2 Turns (QC): 6 Walk 150 ft (QC): 6 Gait Assistive Device: FWW Does the Pt use WC or Scooter?: No Stairs (FIM): 6 # of Steps: 12 1 Step (curb) (QC): 6 4 Steps (QC): 6 12 Steps (QC): 6 Picking up an Object (QC): 88 PT Plan Problem List Problem List: Activity Tolerance, Safety, Gait Treatment/Plan Treatment Plan: Continue Plan of Care Treatment Plan: Bed Mobility, Education, Functional Activity Ronit, Functional Strength, Group Therapy, Gait, Safety, Therapeutic Exercise, Transfers Treatment Duration: Apr 18, 2019 Frequency: At least 5 of 7 days/Wk (IRF) Estimated Hrs Per Day: 1.5 hours per day Patient and/or Family Agrees t: Yes Safety Risks/Education Patient Education: Gait Training, Correct Positioning, Safety Issues Teaching Recipient: Patient Teaching Methods: Discussion Response to Teaching: Verbalize Understanding, Reinforcement Needed Time/GCodes Time In: 1330 Time Out: 1400 Total Billed Treatment Time: 30 Total Billed Treatment 1, GT (20m) & FA (10m) G Codes Necessary: RAFI Morales PTA Apr 10, 2019 14:08
--- NOTE | 2019-04-10 16:07 | Speech Therapy Daily Note ---
Speech Daily Progress Note Subjective Date Seen by Provider: Apr 10, 2019 Time Seen by Provider: 00:30 The patient states he really wants to go home. Objective Patient completed memory tasks related to his daily needs at 80% with minimal verbal cues. Assessment Assessment Current Status: Good Progress Treatment Plan Continue Plan of Care Communication Comprehension: 6 Expression: 6 Social Cognition Social Interaction: 7 Problem Solvin Memory: 5 Speech Short Term Goals Short Term Goals Short Term Goals 1) The patient will complete memory tasks with 90% or greater with minimal verbal cues. 2) The patient will complete problem solving tasks with 90% or greater with minimal verbal cues. 3) The patient will demonstrate following multi-step directions with 90% or greater with minimal verbal cues. Speech Burnt Lime Drawer Goals Usp Goals The patient will improve his safety and independence in order to return home safely. Speech-Plan Patient/Family Goals Patient/Family Goals: The patient plans on returning home with his post rehab. Treatment Plan Speech Therapy Treatment Plan: Continue Plan of Care The patient has two follow up appointments at on . Treatment Duration: Apr 13, 2019 Frequency: 5 times per week Estimated Hrs Per Day: .5 hour per day Rehab Potential: Good Barriers to Learning: Mild memory deficits. Pt/Family Agrees to Plan: Yes Safety Risks/Education Teaching Recipient: Patient Teaching Methods: Discussion Response to Teaching: Verbalize Understanding Education Topics Provided: Continued safety in his room and upon his return home. Time Speech Therapy Time In: 08:30 Speech Therapy Time Out: 09:00 Total Billed Time: 30 Billed Treatment Time 1YUDITH [address] ST Apr 10, 2019 16:07
[2019-04-10 16:46] VITALS: BP 109/68
--- NOTE | 2019-04-10 19:26 | NUR ---
bedside report received from ROSALIE RAMIRES, assume care of pt
[2019-04-10] MEDS: FLUTICASONE NASAL SPRAY (FLONASE) 16 GM BTL NS SCH (21:30)
[2019-04-10] MEDS: TAMSULOSIN 0.4 MG (FLOMAX) CAP PO SCH (21:30)
[2019-04-10] MEDS: rOPINIRole 0.25 MG (REQUIP) TAB PO SCH (21:30)
[2019-04-10] MEDS: ATORVASTATIN 80 MG (LIPITOR) TABLET PO SCH (21:30)
--- NOTE | 2019-04-10 21:30 | NUR ---
assessments & interventions completed, see assessments & interventions
--- NOTE | 2019-04-10 23:04 | NUR ---
c/o headache pain level 5/10 on numeric scale, Tylenol 650mg po given
--- NOTE | 2019-04-10 23:40 | NUR ---
resting quietly in bed, pain level 0/10 on flacc scale
[2019-04-11 05:50] VITALS: BP 116/64
--- NOTE | 2019-04-11 07:26 | NUR ---
bedside report given to ROSALIE RAMIRES
[2019-04-11] MEDS: PANTOPRAZOLE 40 MG (PROTONIX) TAB PO SCH (08:14)
[2019-04-11] MEDS: ALLOPURINOL 100 MG (ZYLOPRIM) TAB PO SCH (08:14)
[2019-04-11] MEDS: SPIRONOLACTONE 25 MG (ALDACTONE) TAB PO SCH (08:14)
[2019-04-11] MEDS: VITAMIN D3 5,000 UNITS (CHOLECALCIFEROL ) CAPSULE PO SCH (08:14)
[2019-04-11] MEDS: LOSARTAN 50 MG (COZAAR) TAB PO SCH (08:14)
[2019-04-11] MEDS: MULTIVIT W/MINERALS TAB (THERAGRAN M) PO SCH (08:14)
[2019-04-11] MEDS: ASPIRIN E.C. 325 MG (ECOTRIN) TABLET PO SCH (08:14)
[2019-04-11] MEDS: AMIODARONE 200 MG (CORDARONE) TAB PO SCH ×3 (08:14→21:34)
[2019-04-11] MEDS: LORATADINE (CLARITIN) 10 MG TAB PO SCH (08:15)
[2019-04-11] MEDS: SENNA W/DOCUSATE (SENOKOT S) TABLET PO SCH ×2 (08:19→21:34)
[2019-04-11] MEDS: POLYETHYLENE GLYCOL 17 GM (MIRALAX) PACK PO SCH ×2 (08:19→21:10)
--- NOTE | 2019-04-11 09:10 | PM&R Progress Note ---
Subjective HPI/CC On Admission Date Seen by Provider: Apr 11, 2019 Time Seen by Provider: 09:15 CC: Debility HPI: HPI: This is a Pt of Dr. 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 He was found to have altered gate and multiple falls and hearing loss over the past year that worsened requiring cochlear implants and further evaluation of the disequilibrium and neurologist was evaluating the Pt to have the large Basilar aneurysm so he was sent to for further evaluation. 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 He is on Coumadin maintained on adequate dosing for stroke prophylaxis from the atrial fibrillation and he is s/p MANAGER PORTABLE shunts with no complication but management of the aneurysm throughout the weekend that resulted in improvement in the mobility and ambulation and will need fine tuning for safety prevention and fall prevention and ultimately return home with his to return to prior level of functioning. Dr. Butcher PCP will be consulted. He has not had a BM for 1 week so will initiate an aggressive regimen for that. At this current time he doesn't have any pain and he is very hard of hearing even with the cochlear implants. Subjective/Events-last exam He wants discharge desperately. Has the same conversation over and over. Very impulsive but unsure if that's really going to be improved if h remains here much longer. Likely will advocate for discharge on Tuesday. Day pass will be provided for tomorrows neurosurgery follow-up. Conferred with RN Reviewed therapy notes Review of Systems General: Fatigue, Malaise Objective Exam Vital Signs Vital Signs Date Time Temp Pulse Resp B/P (MAP) Pulse Ox O2 Delivery O2 Flow Rate FiO2 04/11/19 17:41 98.1 63 18 113/74 (87) 94 Room Air Capillary Refill : General Appearance: No Apparent Distress, WD/WN, Chronically ill, Obese HEENT: PERRL/EOMI, Normal ENT Inspection, Pharynx Normal, Moist Mucous Membranes Neck: Full Range of Motion, Normal Inspection, Non Tender, Supple Respiratory: Chest Non Tender, Lungs Clear, Normal Breath Sounds, No Accessory Muscle Use, No Respiratory Distress Cardiovascular: Regular Rate, Rhythm, No Edema, No Gallop, No JVD, No Murmur Gastrointestinal: Normal Bowel Sounds, No Organomegaly, No Pulsatile Mass, Non Tender, Soft Back: Normal Inspection, No CVA Tenderness, No Vertebral Tenderness Extremity: Normal Capillary Refill, Normal Inspection, Normal Range of Motion, Non Tender, No Calf Tenderness, No Pedal Edema Neurologic/Psychiatric: Alert, Oriented x3, No Motor/Sensory Deficits, Normal Mood/Affect, production control clerk II-XII Norm as Tested, Abnormal Gait, Motor Weakness (lower legs 4/5) Skin: Normal Color, Warm/Dry Lymphatic: No Adenopathy Results/Procedures Lab Patient resulted labs reviewed. FIM Transfers Therapy Code Descriptions/Definitions Functional [place] Measure: 0=Not Assessed/NA 4=Minimal Assistance 1=Total Assistance 5=Supervision or Setup 2=Maximal Assistance 6=Modified [place] 3=Moderate Assistance 7=Complete [place] Therapy Quality Codes: 6 Independent with activity with or without an assistive device 5 Patient requires set up or clean up by helper. Patient completes activity by themselves 4 Supervision or touching assist (CGA). [place] provide cues , steadying assist 3 The helper provides less than half the effort to complete the activity 2 The helper provides more than half the effort to complete the activity 1 Dependent. The helper does all the effort to complete an activity 7 Patient refused to complete or attempt activity 9 The patient did not perform the activity before the current illness or injury 88 Not attempted due to Medical conditions or safety concerns Transfers (B, C, W/C) (FIM): 4 Scootin Rollin Roll Left to Right (QC): 6 Supine to/from Sit: 6 Sit to/from Stand: 5 Sit to Lying (QC): 6 Sit to Stand (QC): 5 Chair/Nvo-pq-Emoae Xfer(QC): 4 Gait Training Does the Patient Walk?: Yes Gait (FIM): 5 Distance (FIM): 3=150 ft Distance: 750' Walk 10 feet (QC): 5 Walk 50 ft with 2 Turns(QC): 5 Walk 150 ft (QC): 5 Walking 10ft/uneven surface-QC: 4 Gait Level of Assist: 5 Gait Persons Needed: 1 Gait Assistive Device: FWW Wheelchair Training Does the Pt Use a Wheelchair?: No Stair Training Stair Training: Handrails/: 2 handrails Stairs (FIM): 2 #of Steps: 4 1 Step (curb) (QC): 4 4 Steps (QC): 4 12 Steps (QC): 88 Level of Assist: 4 (CGA for safety) Balance Picking up an Object (QC): 88 Mental Status/Objective Comprehension: 6 Expression: 6 Social Interaction: 7 Problem Solvin Memory: 5 ADL-Treatment Feedin (set up by report) Eating (QC): 5 Groomin (Set up at sink to brush hair seated in chair.) Oral Hygiene (QC): 5 Bathin Shower/Bathe Self (QC): 4 Upper Extremity Dressin Upper Body Dressing (QC): 5 Lower Extremity Dressin (Pt. utilized DS but declined using sock aide. Pt. has difficulty with bending over, and had several LOB while bending to don socks.) Lower Body Dressing (QC): 4 On/Off Footwear (QC): 4 Toiletin Toileting Hygiene (QC): 6 Toilet/Commode Transfer: 4 Toilet Transfer (QC): 4 Shower: 4 Assessment/Plan Assessment and Plan Assess & Plan/Chief Complaint Assessment: (1) Brain aneurysm (2) NPH (normal pressure hydrocephalus) (3) Intracranial shunt (4) Basilar artery aneurysm (5) Weakness (6) CAD (coronary artery disease) (7) PVD (peripheral vascular disease) (8) S/P AAA repair (9) Renal insufficiency (10) Renal lithiasis (11) Ischemic cardiomyopathy (12) Warfarin anticoagulation (13) COPD (chronic obstructive pulmonary disease) (14) SYL (obstructive sleep apnea) (15) Hx of CABG (16) Atrial fibrillation (17) cognitive deficits Plan: Anticoagulation per PCP will be held and maintained on Lovenox DVT PPX dose PT/OT per protocol Monitor cognition closely Fall risk DC once no longer a fall risk per therapy and ok with taking care of him NSG appt tomorrow (1) Basilar artery aneurysm (2) Cognitive deficits (3) Intracranial shunt (4) Hx of CABG (5) S/P AAA repair (6) Warfarin anticoagulation (7) Renal lithiasis (8) Ischemic cardiomyopathy (9) Brain aneurysm (10) PVD (peripheral vascular disease) (11) Weakness (12) SYL (obstructive sleep apnea) (13) Renal insufficiency (14) NPH (normal pressure hydrocephalus) (15) CAD (coronary artery disease) (16) Atrial fibrillation (17) COPD (chronic obstructive pulmonary disease) SOLO MENDENHALL DO Apr 11, 2019 09:10
--- NOTE | 2019-04-11 09:32 | Physical Therapy Daily Note ---
PT Daily Note-Current Subjective Pt. agrees to Rx, states at end of Rx " all I want is to get the hell out of here lady" smiles. Describes the car he gets in and out of as well as the steps without rails he will have to go up and down at his house. Pain Location: No Pain Reported Mental Status Patient Orientation: Person, Place, Time, Situation very hard of hearing but reads lips very well Transfers Therapy Code Descriptions/Definitions Functional [place] Measure: 0=Not Assessed/NA 4=Minimal Assistance 1=Total Assistance 5=Supervision or Setup 2=Maximal Assistance 6=Modified [place] 3=Moderate Assistance 7=Complete [place] Therapy Quality Codes: 6 Independent with activity with or without an assistive device 5 Patient requires set up or clean up by helper. Patient completes activity by themselves 4 Supervision or touching assist (CGA). [place] provide cues , steadying assist 3 The helper provides less than half the effort to complete the activity 2 The helper provides more than half the effort to complete the activity 1 Dependent. The helper does all the effort to complete an activity 7 Patient refused to complete or attempt activity 9 The patient did not perform the activity before the current illness or injury 88 Not attempted due to Medical conditions or safety concerns Transfers (B, C, W/C) (FIM): 6 Scootin Rollin Roll Left to Right (QC): 6 Supine to/from Sit: 7 Sit to/from Stand: 7 Sit to Lying (QC): 6 Sit to Stand (QC): 6 Chair/Iwa-ex-Ikwav Xfer(QC): 6 Bed to/from Chair: 6 Car Transfer (QC): 6 Weight Bearing Full Weight Bearing Full Weight Bearing Gait Training Does the Patient Walk?: Yes Gait (FIM): 6 Distance (FIM): 3=150 ft (200x3) Walk 10 feet (QC): 6 Walk 150 ft (QC): 6 Walking 10ft/uneven surface-QC: 6 Gait Level of Assist: 6 Gait Persons Needed: 0 Gait Assistive Device: FWW sometimes take wide turns with FWW, sometimes feet/toes bump FWW Stair Training Stair Training: Handrails/: 2 handrails Stairs (FIM): 4 #of Steps: 12 1 Step (curb) (QC): 5 4 Steps (QC): 4 12 Steps (QC): 4 Stairs: Pattern: Reciprocal Level of Assist: 4 some direction for using rails and to place entire foot on step etc Balance Picking up an Object (QC): 5 Exercises Supine Ex: Bridging, Ankle pumps, Quad Set, Rolling, Glut sets, Heel Slides, Short Arc Quads, Scooting, Straight leg raise, Hip abd/add Supine Reps: 15 Seated Therapy Exercises: Ankle pumps, Sit to stand, Long arc quads, Hip flexion Seated Reps: 15 Standing: Hip Abduction, Hamstring curls, Heel/toe raises, Marching, Mini squats Standing Reps: 15 NuStep Minutes: 12 NuStep Workload: 5 Neuromuscular balance challenges for retro walking (no LOB), no hands chair TRFs (required chair arms for safety), narrow ROSARIO stance ( no LOB 30s),large step with hold ( required CGA) twist turns: partial bilat with no LOB Treatments toileted managing pants and clean up indep Assessment Current Status: Good Progress pts. hearing issue puts him at further risk for balance as he does not hear cues if not in direct eye contact. PT Short Term Goals Short Term Goals Time Frame: Apr 11, 2019 Transfers (B,C,W/C) (FIM): 5 (met) Gait (FIM): 5 (met) PT Machine Container Washer Goals Machine Container Washer Goals PT Machine Container Washer Goals Time Frame: Apr 18, 2019 Transfers (B,C,W/C) (FIM): 7 Sit to Lying (QC): 6 Lying-Sitting on Side/Bed(QC): 6 Sit to Stand (QC): 6 Rollin Roll Left to Right (QC): 6 Chair/Krx-ud-Yixic Xfer(QC): 6 Car Transfer (QC): 6 Does the Patient Walk: Yes Gait (FIM): 6 Gait distance (FIM): 3=150 ft Walk 10 feet (QC): 6 Walk 10ft-Uneven Surface(QC): 6 Walk 50ft with 2 Turns (QC): 6 Walk 150 ft (QC): 6 Gait Assistive Device: FWW Does the Pt use WC or Scooter?: No Stairs (FIM): 6 # of Steps: 12 1 Step (curb) (QC): 6 4 Steps (QC): 6 12 Steps (QC): 6 Picking up an Object (QC): 88 PT Plan Treatment/Plan Treatment Plan: Continue Plan of Care Treatment Plan: Bed Mobility, Education, Functional Activity Ronit, Functional Strength, Group Therapy, Gait, Safety, Therapeutic Exercise, Transfers Treatment Duration: Apr 18, 2019 Frequency: At least 5 of 7 days/Wk (IRF) Estimated Hrs Per Day: 1.5 hours per day Patient and/or Family Agrees t: Yes Safety Risks/Education Patient Education: Gait Training, Transfer Techniques, Steps, Correct Positioning, Disease Process, Safety Issues Teaching Recipient: Patient Teaching Methods: Demonstration, Discussion Response to Teaching: Verbalize Understanding, Return Demonstration, Reinforcement Needed Time/GCodes Time In: 800 Time Out: 930 Total Billed Treatment Time: 90 Total Billed Treatment 1,NM20m,GT25m,EX20m,FA25m G Codes Necessary: NEDRA Frederick BODY TRIMMER UPHOLSTERER Apr 11, 2019 09:32
--- NOTE | 2019-04-11 11:12 | Occupational Ther Daily Note ---
OT Current Status-Daily Note Subjective No pain reported. Pt. states, "I just need to get out of here." Pt. reports that he feels ready to go home. Appearance Pt. up in his chair. Agrees to work with OT. Mental Status/Objective Patient Orientation: Person, Place, Time, Situation Therapy Code Descriptions/Definitions Functional [place] Measure: 0=Not Assessed/NA 4=Minimal Assistance 1=Total Assistance 5=Supervision or Setup 2=Maximal Assistance 6=Modified [place] 3=Moderate Assistance 7=Complete [place] ADL-Treatment Therapy Code Descriptions/Definitions Functional [place] Measure: 0=Not Assessed/NA 4=Minimal Assistance 1=Total Assistance 5=Supervision or Setup 2=Maximal Assistance 6=Modified [place] 3=Moderate Assistance 7=Complete [place] Therapy Quality Codes: 6 Independent with activity with or without an assistive device 5 Patient requires set up or clean up by helper. Patient completes activity by themselves 4 Supervision or touching assist (CGA). [place] provide cues , steadying assist 3 The helper provides less than half the effort to complete the activity 2 The helper provides more than half the effort to complete the activity 1 Dependent. The helper does all the effort to complete an activity 7 Patient refused to complete or attempt activity 9 The patient did not perform the activity before the current illness or injury 88 Not attempted due to Medical conditions or safety concerns Grooming (FIM): 5 (SBA while standing at sink to brush teeth.) Oral Hygiene (QC): 4 Bathing (FIM): 5 (SBA while in shower to wash all parts, especially in stance.) Shower/Bathe Self (QC): 4 Upper Body (FIM): 5 (Set up) Upper Body Dressing (QC): 5 Lower Body Dressing (FIM): 5 (Pt. transferred to chair with arms in bathroom after shower, to perform dressing tasks. At this level, pt. does not lose balance while sitting.) Lower Body Dressing (QC): 4 On/Off Footwear (QC): 4 Toileting (FIM): 5 Toileting Hygiene (QC): 5 Transfers (B, C, W/C) (FIM): 4 (CGA at times in stance due to LOB and impulsivity.) Toilet/Commode Transfer (FIM): 5 Toilet Transfer (QC): 4 Tub Transfer(FIM): 4 Shower Transfer(FIM): 4 Other Treatment Pt. demonstrates fast movements with walker and impulsive moves at times, such as turning quickly or putting walker aside to transfer to somewhere else. Pt. has been educated about this, and this has been practiced and worked on. Pt. does well with ADLs with SBA for safety cues. Pt. reports that he does not need to practice laundry task. Pt. completed arm bike x 15 minutes at mod resistance for increased UE strength and endurance. Donned 3 lb. wrist weight and completed peg activity, ball toss, arm arc, and nut/bolt activity. Pt. has no difficulty with this. When pt. is asked what his goals are, he states that he just wants "to go home." All needs are met back in room. Education OT Patient Education: Correct positioning, Exercise program, Modified ADL techniques, Progress toward Goal/Update tx plan, Purpose of tx/functional activities, Reviewed precautions, Rehab process, Transfer techniques Teaching Recipient: Patient Teaching Methods: Demonstration, Discussion Response to Teaching: Verbalize Understanding, Return Demonstration OT Short Term Goals Short Term Goals Time Frame: Apr 11, 2019 Lower Body Dressing(FIM): 5 Toileting(FIM): 5 Transfers (B,C,W/C) (FIM): 5 (met) Toilet/Commode Transfer(FIM): 5 Additional Short Term Goals: 1-Demonstrate ADL Tasks, 2-Verbalize Understanding, 3-ImproveStrength/Ronit 1=Demonstrate adherence to instructed precautions during ADL tasks. 2=Patient will verbalize/demonstrate understanding of assistive devices/modific ations for ADL. 3=Patient will improve strength/tolerance for activity to enable patient to perform ADL's. OT Snf Goals Snf Goals Time Frame: Apr 25, 2019 Eating (FIM): 7 Eating (QC): 6 Groomin Oral Hygiene (QC): 6 Bathing(FIM): 5 Shower/Bathe Self (QC): 5 Upper Body Dressing(FIM): 6 Upper Body Dressing (QC): 6 Lower Body Dressing(FIM): 6 Lower Body Dressing (QC): 6 On/Off Footwear (QC): 6 Toileting(FIM): 6 Toileting Hygiene (QC): 6 Toilet/Commode Transfer(FIM): 6 Toilet/Commode Transfer (QC): 6 Shower Transfer(FIM): 5 Additional Goals: 1-Demonstrate ADL Tasks, 2-Verbalize Understanding, 3- ImproveStrength/Ronit 1=Demonstrate adherence to instructed precautions during ADL tasks. 2=Patient will verbalize/demonstrate understanding of assistive devices/modifications for ADL. 3=Patient will improve strength/tolerance for activity to enable patient to perform ADL's. OT Education/Plan Problem List/Assessment Assessment: Decreased Activ Tolerance, Decreased Safety Aware, Impaired I ADL's, Impaired Self-Care Skills Discharge Recommendations Plan/Recommendations: Continue POC Therapy D/C Recommendations: Home w/ Family Support, Occupational Therapy Home Care Treatment Plan/Plan of Care Treatment,Training & Education: Yes Patient would benefit from OT for education, treatment and training to promote independence in ADL's, mobility, safety and/or upper extremity function for ADL's. Plan of Care: ADL Retraining, Functional Mobility, UE Funct Exercise/Act Treatment Duration: Apr 25, 2019 Frequency: At least 5 of 7 days/Wk (IRF) Estimated Hrs Per Day: 1.5 hours per day Agreement: Yes Rehab Potential: Good Time/GCodes Start Time: 09:30 Stop Time: 10:45 Total Time Billed (hr/min): 75 Billed Treatment Time 1, ADL x 30minutes, Ex x 15minutes, FA x 30minutes MERNA BRANCH OT Apr 11, 2019 11:12
[2019-04-11] MEDS: ENOXAPARIN 40 MG/0.4 ML (LOVENOX) SYR SC SCH (11:30)
--- NOTE | 2019-04-11 12:11 | NUR ---
Senior Staff Specialized Employment offered prayer and blessing.
--- NOTE | 2019-04-11 15:34 | Speech Therapy Daily Note ---
Speech Daily Progress Note Subjective Date Seen by Provider: Apr 11, 2019 Time Seen by Provider: 00:30 The patient was resting in his bed after therapy when I entered. Objective The patient completed problem solving tasks with 90% accuracy. Patient requires verbal prompts to slow down at times. Assessment Assessment Current Status: Good Progress Treatment Plan Continue Plan of Care Communication Comprehension: 6 Expression: 6 Social Cognition Social Interaction: 7 Problem Solvin Memory: 5 Speech Short Term Goals Short Term Goals Short Term Goals 1) The patient will complete memory tasks with 90% or greater with minimal verbal cues. 2) The patient will complete problem solving tasks with 90% or greater with minimal verbal cues. 3) The patient will demonstrate following multi-step directions with 90% or greater with minimal verbal cues. Speech Jail Goals Jail Goals The patient will improve his safety and independence in order to return home safely. Speech-Plan Patient/Family Goals Patient/Family Goals: The patient will be returning home with his over the weekend. Treatment Plan Speech Therapy Treatment Plan: Continue Plan of Care The patient has doctors appointments at tomorrow. Treatment Duration: Apr 13, 2019 Frequency: 5 times per week Estimated Hrs Per Day: .5 hour per day Rehab Potential: Good Barriers to Learning: Mild memory deficit Pt/Family Agrees to Plan: Yes Safety Risks/Education Teaching Recipient: Patient Teaching Methods: Discussion Response to Teaching: Verbalize Understanding Education Topics Provided: Continued safety with his needs during the day. Time Speech Therapy Time In: 15:00 Speech Therapy Time Out: 15:30 Total Billed Time: 30 Billed Treatment Time [address] Apr 11, 2019 15:34
--- NOTE | 2019-04-11 16:45 | NUR ---
HEATING AND VENTILATING DRAFTER met with patient to review team conference summary. Patient is performing transfers and gait with modified independence, shower with min assist and OT activities with standby assist. Patient is eager to return home and team is unsure if additional progress will be made due to patient's impulsivity. Patient's is accustom to providing mod assist with all activities; therefore, she feels that she will be able to provide necessary assistance at home. She is hopeful for a couple additional days in ARU for patient to continue to hear the need to "slow down" from the therapists, as he will not listen to such direction from her. Team is recommending [facility] and for spouse to trial current level of assistance, patient will then return from day pass and complete one last full day of therapy and proceed with discharge on Tuesday. Patient is agreeable to this as he has inquired about discharge, daily. [facility] Imaging is scheduled for 1115a and physician follow up at 1pm, patient will likely not return until evening hours.
[2019-04-11 17:41] VITALS: BP 113/74
--- NOTE | 2019-04-11 18:30 | NUR ---
PLANS TO BATCHMAKER PATIENT AT 0730 IN AM FOR [facility] APPOINTMENT. PACKET ALREADY GIVEN TO OF LABS AND PROGRESS NOTES TO TAKE TOMORROW.
[2019-04-11] MEDS: rOPINIRole 0.25 MG (REQUIP) TAB PO SCH (21:33)
[2019-04-11] MEDS: TAMSULOSIN 0.4 MG (FLOMAX) CAP PO SCH (21:33)
[2019-04-11] MEDS: FLUTICASONE NASAL SPRAY (FLONASE) 16 GM BTL NS SCH (21:34)
[2019-04-11] MEDS: ATORVASTATIN 80 MG (LIPITOR) TABLET PO SCH (21:34)
[2019-04-12 05:09] VITALS: BP 113/74
[2019-04-12] MEDS: ASPIRIN E.C. 325 MG (ECOTRIN) TABLET PO SCH (07:30)
[2019-04-12] MEDS: LOSARTAN 50 MG (COZAAR) TAB PO SCH (07:30)
[2019-04-12] MEDS: VITAMIN D3 5,000 UNITS (CHOLECALCIFEROL ) CAPSULE PO SCH (07:30)
[2019-04-12] MEDS: PANTOPRAZOLE 40 MG (PROTONIX) TAB PO SCH (07:31)
[2019-04-12] MEDS: SPIRONOLACTONE 25 MG (ALDACTONE) TAB PO SCH (07:31)
[2019-04-12] MEDS: LORATADINE (CLARITIN) 10 MG TAB PO SCH (07:31)
[2019-04-12] MEDS: AMIODARONE 200 MG (CORDARONE) TAB PO SCH ×3 (07:31→20:29)
[2019-04-12] MEDS: ALLOPURINOL 100 MG (ZYLOPRIM) TAB PO SCH (07:31)
[2019-04-12] MEDS: MULTIVIT W/MINERALS TAB (THERAGRAN M) PO SCH (07:31)
[2019-04-12] MEDS: POLYETHYLENE GLYCOL 17 GM (MIRALAX) PACK PO SCH ×2 (07:31→19:36)
[2019-04-12] MEDS: SENNA W/DOCUSATE (SENOKOT S) TABLET PO SCH ×2 (07:32→20:29)
[2019-04-12] MEDS: ENOXAPARIN 40 MG/0.4 ML (LOVENOX) SYR SC SCH (07:36)
--- NOTE | 2019-04-12 08:13 | PM&R Progress Note ---
Subjective HPI/CC On Admission Date Seen by Provider: Apr 12, 2019 Time Seen by Provider: 07:45 CC: Debility HPI: HPI: This is a Pt of Dr. Butcher who presented after transfer from [facility] after an extensive hospital stay that included management of normal pressure hydrocephalus with vp transportation shunt placed and management of a large basilar aneurysm. He was found to have altered gate and multiple falls and hearing loss over the past year that worsened requiring cochlear implants and further evaluation of the disequilibrium and neurologist was evaluating the Pt to have the large Basilar aneurysm so he was sent to for further evaluation. 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 He is on Coumadin maintained on adequate dosing for stroke prophylaxis from the atrial fibrillation and he is s/p SWITCHBOARD AND CONTROL ROOM OPERATOR shunts with no complication but management of the aneurysm throughout the weekend that resulted in improvement in the mobility and ambulation and will need fine tuning for safety prevention and fall prevention and ultimately return home with his to return to prior level of functioning. Dr. Butcher PCP will be consulted. He has not had a BM for 1 week so will initiate an aggressive regimen for that. At this current time he doesn't have any pain and he is very hard of hearing even with the cochlear implants. Subjective/Events-last exam Pt going for a day pass to . There may be some sort of procedure planned for the aneurysm, unsure about that. Will continue treatment after he returns in order to go home soon on the as planned. Denies any pain. Bowels are moving. Overall doing well but still impulsive and major fall risk. Conferred with RN Reviewed therapy notes Review of Systems General: Fatigue Neurological: Weakness, Incoordination, Confusion Objective Exam Vital Signs Vital Signs Date Time Temp Pulse Resp B/P (MAP) Pulse Ox O2 Delivery O2 Flow Rate FiO2 04/12/19 20:15 Room Air 04/12/19 16:42 98.2 68 16 103/65 (78) 96 Capillary Refill : General Appearance: No Apparent Distress, WD/WN, Chronically ill, Obese HEENT: PERRL/EOMI, Normal ENT Inspection, Pharynx Normal, Moist Mucous Membranes Neck: Full Range of Motion, Normal Inspection, Non Tender, Supple Respiratory: Chest Non Tender, Lungs Clear, Normal Breath Sounds, No Accessory Muscle Use, No Respiratory Distress Cardiovascular: Regular Rate, Rhythm, No Edema, No Gallop, No JVD, No Murmur Gastrointestinal: Normal Bowel Sounds, No Organomegaly, No Pulsatile Mass, Non Tender, Soft Back: Normal Inspection, No CVA Tenderness, No Vertebral Tenderness Extremity: Normal Capillary Refill, Normal Inspection, Normal Range of Motion, Non Tender, No Calf Tenderness, No Pedal Edema Neurologic/Psychiatric: Alert, Oriented x3, No Motor/Sensory Deficits, Normal Mood/Affect, mba internship II-XII Norm as Tested, Abnormal Gait, Motor Weakness (lower legs 4/5) Skin: Normal Color, Warm/Dry Lymphatic: No Adenopathy Results/Procedures Lab Patient resulted labs reviewed. FIM Transfers Therapy Code Descriptions/Definitions Functional [place] Measure: 0=Not Assessed/NA 4=Minimal Assistance 1=Total Assistance 5=Supervision or Setup 2=Maximal Assistance 6=Modified [place] 3=Moderate Assistance 7=Complete [place] Therapy Quality Codes: 6 Independent with activity with or without an assistive device 5 Patient requires set up or clean up by helper. Patient completes activity by themselves 4 Supervision or touching assist (CGA). [place] provide cues , steadying assist 3 The helper provides less than half the effort to complete the activity 2 The helper provides more than half the effort to complete the activity 1 Dependent. The helper does all the effort to complete an activity 7 Patient refused to complete or attempt activity 9 The patient did not perform the activity before the current illness or injury 88 Not attempted due to Medical conditions or safety concerns Transfers (B, C, W/C) (FIM): 4 (CGA at times in stance due to LOB and impulsivity.) Scootin Rollin Roll Left to Right (QC): 6 Supine to/from Sit: 7 Sit to/from Stand: 7 Sit to Lying (QC): 6 Sit to Stand (QC): 6 Chair/Fbu-fc-Cyozm Xfer(QC): 6 Bed to/from Chair: 6 Car Transfer (QC): 6 Gait Training Does the Patient Walk?: Yes Gait (FIM): 6 Distance (FIM): 3=150 ft (200x3) Distance: 750' Walk 10 feet (QC): 6 Walk 50 ft with 2 Turns(QC): 5 Walk 150 ft (QC): 6 Walking 10ft/uneven surface-QC: 6 Gait Level of Assist: 6 Gait Persons Needed: 0 Gait Assistive Device: FWW Wheelchair Training Does the Pt Use a Wheelchair?: No Stair Training Stair Training: Handrails/: 2 handrails Stairs (FIM): 4 #of Steps: 12 1 Step (curb) (QC): 5 4 Steps (QC): 4 12 Steps (QC): 4 Stairs: Pattern: Reciprocal Level of Assist: 4 Balance Picking up an Object (QC): 5 Mental Status/Objective Comprehension: 6 Expression: 6 Social Interaction: 7 Problem Solvin Memory: 5 ADL-Treatment Feedin (set up by report) Eating (QC): 5 Groomin (SBA while standing at sink to brush teeth.) Oral Hygiene (QC): 4 Bathin (SBA while in shower to wash all parts, especially in stance.) Shower/Bathe Self (QC): 4 Upper Extremity Dressin (Set up) Upper Body Dressing (QC): 5 Lower Extremity Dressin (Pt. transferred to chair with arms in bathroom after shower, to perform dressing tasks. At this level, pt. does not lose balance while sitting.) Lower Body Dressing (QC): 4 On/Off Footwear (QC): 4 Toiletin Toileting Hygiene (QC): 5 Toilet/Commode Transfer: 5 Toilet Transfer (QC): 4 Tub: 4 Shower: 4 Assessment/Plan Assessment and Plan Assess & Plan/Chief Complaint Assessment: (1) Brain aneurysm (2) NPH (normal pressure hydrocephalus) (3) Intracranial shunt (4) Basilar artery aneurysm (5) Weakness (6) CAD (coronary artery disease) (7) PVD (peripheral vascular disease) (8) S/P AAA repair (9) Renal insufficiency (10) Renal lithiasis (11) Ischemic cardiomyopathy (12) Warfarin anticoagulation (13) COPD (chronic obstructive pulmonary disease) (14) SYL (obstructive sleep apnea) (15) Hx of CABG (16) Atrial fibrillation (17) cognitive deficits Plan: Anticoagulation per PCP will be held and maintained on Lovenox DVT PPX dose PT/OT per protocol Monitor cognition closely Fall risk DC once no longer a fall risk per therapy and ok with taking care of him NSG appt today at [facility] (1) Basilar artery aneurysm (2) Cognitive deficits (3) Intracranial shunt (4) Hx of CABG (5) S/P AAA repair (6) Warfarin anticoagulation (7) Renal lithiasis (8) Ischemic cardiomyopathy (9) Brain aneurysm (10) PVD (peripheral vascular disease) (11) Weakness (12) SYL (obstructive sleep apnea) (13) Renal insufficiency (14) NPH (normal pressure hydrocephalus) (15) CAD (coronary artery disease) (16) Atrial fibrillation (17) COPD (chronic obstructive pulmonary disease) SOLO MENDENHALL DO Apr 12, 2019 08:13
--- NOTE | 2019-04-12 08:22 | Physical Therapy Progress Note ---
Therapy Progress Note Pt is out of facility for out of town Dr Mcdonald. will return later today but will miss today's tx. PT will resume tomorrow. RAFI GARCIA SURVEYING CREW STAKE RUNNER Apr 12, 2019 08:22
[2019-04-12 08:47] VITALS: BP 115/71
--- NOTE | 2019-04-12 09:01 | NUR ---
Family here to take patient to appointment at [facility]. Assisted to car. Addendum: 04/12/19 at 0902 by RYLAND CHAKRABORTY RN Actual time- [id number].
--- NOTE | 2019-04-12 10:07 | Speech Therapy Progress Note ---
Therapy Progress Note The patient is on hold due to being at for two doctors appointments today. SYLVIA BECKER Apr 12, 2019 10:07
--- NOTE | 2019-04-12 11:19 | Occ Therapy Progress Note ---
Therapy Progress Note Pt. at appointment today out of town. Therapy will be on hold for today. Will resume tomorrow. 1120 MERNA BRANCH OT Apr 12, 2019 11:19
[2019-04-12 16:42] VITALS: BP 103/65
--- NOTE | 2019-04-12 16:50 | NUR ---
Patient back to floor. VSS. See intervention for details. No complaints. Family forgot to ask about Coumadin. Call placed to Dr. Weber's office, but office is closed. toll test desk worker Dr. bean. Will await return call.
--- NOTE | 2019-04-12 17:00 | NUR ---
Return call from sludge filtration attendant Neurologist at [facility]. Patient to restart Coumadin 3 weeks post op- April 19, 2019.
[2019-04-12] MEDS: rOPINIRole 0.25 MG (REQUIP) TAB PO SCH (20:29)
[2019-04-12] MEDS: ATORVASTATIN 80 MG (LIPITOR) TABLET PO SCH (20:29)
[2019-04-12] MEDS: FLUTICASONE NASAL SPRAY (FLONASE) 16 GM BTL NS SCH (20:30)
[2019-04-12] MEDS: TAMSULOSIN 0.4 MG (FLOMAX) CAP PO SCH (20:30)
[2019-04-13 05:38] VITALS: BP 122/76
[2019-04-13] MEDS: POLYETHYLENE GLYCOL 17 GM (MIRALAX) PACK PO SCH ×2 (08:17→20:44)
[2019-04-13] MEDS: AMIODARONE 200 MG (CORDARONE) TAB PO SCH ×3 (08:32→20:44)
[2019-04-13] MEDS: ALLOPURINOL 100 MG (ZYLOPRIM) TAB PO SCH (08:32)
[2019-04-13] MEDS: LOSARTAN 50 MG (COZAAR) TAB PO SCH (08:32)
[2019-04-13] MEDS: LORATADINE (CLARITIN) 10 MG TAB PO SCH (08:32)
[2019-04-13] MEDS: PANTOPRAZOLE 40 MG (PROTONIX) TAB PO SCH (08:32)
[2019-04-13] MEDS: SENNA W/DOCUSATE (SENOKOT S) TABLET PO SCH ×2 (08:32→20:45)
[2019-04-13] MEDS: SPIRONOLACTONE 25 MG (ALDACTONE) TAB PO SCH (08:32)
[2019-04-13] MEDS: MULTIVIT W/MINERALS TAB (THERAGRAN M) PO SCH (08:32)
[2019-04-13] MEDS: VITAMIN D3 5,000 UNITS (CHOLECALCIFEROL ) CAPSULE PO SCH (08:33)
[2019-04-13] MEDS: ASPIRIN E.C. 325 MG (ECOTRIN) TABLET PO SCH (08:33)
--- NOTE | 2019-04-13 09:15 | PM&R Progress Note ---
Subjective HPI/CC On Admission Date Seen by Provider: Apr 13, 2019 Time Seen by Provider: 09:00 CC: Debility HPI: HPI: This is a Pt of Dr. Butcher who presented after transfer from [facility] after an extensive hospital stay that included management of normal pressure hydrocephalus with vp software engineering shunt placed and management of a large basilar aneurysm. He was found to have altered gate and multiple falls and hearing loss over the past year that worsened requiring cochlear implants and further evaluation of the disequilibrium and neurologist was evaluating the Pt to have the large Basilar aneurysm so he was sent to for further evaluation. 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 He is on Coumadin maintained on adequate dosing for stroke prophylaxis from the atrial fibrillation and he is s/p MUD TANK OPERATOR shunts with no complication but management of the aneurysm throughout the weekend that resulted in improvement in the mobility and ambulation and will need fine tuning for safety prevention and fall prevention and ultimately return home with his to return to prior level of functioning. Dr. Butcher PCP will be consulted. He has not had a BM for 1 week so will initiate an aggressive regimen for that. At this current time he doesn't have any pain and he is very hard of hearing even with the cochlear implants. Subjective/Events-last exam Pt went to yesterday and returned to IRF There may be some sort of procedure planned for the aneurysm, unsure about that but may be in the future Will continue treatment in order to go home on the as planned. Denies any pain. Bowels are moving. Overall doing well but still impulsive and major fall risk. Conferred with RN Reviewed therapy notes Coumadin restarts 04/19/19 Review of Systems General: Fatigue Objective Exam Vital Signs Vital Signs Date Time Temp Pulse Resp B/P (MAP) Pulse Ox O2 Delivery O2 Flow Rate FiO2 04/13/19 09:00 Room Air 04/13/19 05:38 98.3 57 16 122/76 (91) 96 Capillary Refill : General Appearance: No Apparent Distress, WD/WN, Chronically ill, Obese HEENT: PERRL/EOMI, Normal ENT Inspection, Pharynx Normal, Moist Mucous Membranes Neck: Full Range of Motion, Normal Inspection, Non Tender, Supple Respiratory: Chest Non Tender, Lungs Clear, Normal Breath Sounds, No Accessory Muscle Use, No Respiratory Distress Cardiovascular: Regular Rate, Rhythm, No Edema, No Gallop, No JVD, No Murmur Gastrointestinal: Normal Bowel Sounds, No Organomegaly, No Pulsatile Mass, Non Tender, Soft Back: Normal Inspection, No CVA Tenderness, No Vertebral Tenderness Extremity: Normal Capillary Refill, Normal Inspection, Normal Range of Motion, Non Tender, No Calf Tenderness, No Pedal Edema Neurologic/Psychiatric: Alert, Oriented x3, No Motor/Sensory Deficits, Normal Mood/Affect, manager of pharmacy II-XII Norm as Tested, Abnormal Gait, Motor Weakness (lower legs 4/5) Skin: Normal Color, Warm/Dry Lymphatic: No Adenopathy Results/Procedures Lab Patient resulted labs reviewed. FIM Transfers Therapy Code Descriptions/Definitions Functional [place] Measure: 0=Not Assessed/NA 4=Minimal Assistance 1=Total Assistance 5=Supervision or Setup 2=Maximal Assistance 6=Modified [place] 3=Moderate Assistance 7=Complete [place] Therapy Quality Codes: 6 Independent with activity with or without an assistive device 5 Patient requires set up or clean up by helper. Patient completes activity by themselves 4 Supervision or touching assist (CGA). [place] provide cues , steadying assist 3 The helper provides less than half the effort to complete the activity 2 The helper provides more than half the effort to complete the activity 1 Dependent. The helper does all the effort to complete an activity 7 Patient refused to complete or attempt activity 9 The patient did not perform the activity before the current illness or injury 88 Not attempted due to Medical conditions or safety concerns Transfers (B, C, W/C) (FIM): 4 (CGA at times in stance due to LOB and impulsivity.) Scootin Rollin Roll Left to Right (QC): 6 Supine to/from Sit: 7 Sit to/from Stand: 7 Sit to Lying (QC): 6 Sit to Stand (QC): 6 Chair/Iit-mf-Dvtij Xfer(QC): 6 Bed to/from Chair: 6 Car Transfer (QC): 6 Gait Training Does the Patient Walk?: Yes Gait (FIM): 6 Distance (FIM): 3=150 ft (200x3) Distance: 750' Walk 10 feet (QC): 6 Walk 50 ft with 2 Turns(QC): 5 Walk 150 ft (QC): 6 Walking 10ft/uneven surface-QC: 6 Gait Level of Assist: 6 Gait Persons Needed: 0 Gait Assistive Device: FWW Wheelchair Training Does the Pt Use a Wheelchair?: No Stair Training Stair Training: Handrails/: 2 handrails Stairs (FIM): 4 #of Steps: 12 1 Step (curb) (QC): 5 4 Steps (QC): 4 12 Steps (QC): 4 Stairs: Pattern: Reciprocal Level of Assist: 4 Balance Picking up an Object (QC): 5 Mental Status/Objective Comprehension: 6 Expression: 6 Social Interaction: 7 Problem Solvin Memory: 5 ADL-Treatment Feedin (set up by report) Eating (QC): 5 Groomin (SBA while standing at sink to brush teeth.) Oral Hygiene (QC): 4 Bathin (SBA while in shower to wash all parts, especially in stance.) Shower/Bathe Self (QC): 4 Upper Extremity Dressin (Set up) Upper Body Dressing (QC): 5 Lower Extremity Dressin (Pt. transferred to chair with arms in bathroom after shower, to perform dressing tasks. At this level, pt. does not lose balance while sitting.) Lower Body Dressing (QC): 4 On/Off Footwear (QC): 4 Toiletin Toileting Hygiene (QC): 5 Toilet/Commode Transfer: 5 Toilet Transfer (QC): 4 Tub: 4 Shower: 4 Assessment/Plan Assessment and Plan Assess & Plan/Chief Complaint Assessment: (1) Brain aneurysm (2) NPH (normal pressure hydrocephalus) (3) Intracranial shunt (4) Basilar artery aneurysm (5) Weakness (6) CAD (coronary artery disease) (7) PVD (peripheral vascular disease) (8) S/P AAA repair (9) Renal insufficiency (10) Renal lithiasis (11) Ischemic cardiomyopathy (12) Warfarin anticoagulation (13) COPD (chronic obstructive pulmonary disease) (14) SYL (obstructive sleep apnea) (15) Hx of CABG (16) Atrial fibrillation (17) cognitive deficits Plan: Anticoagulation will be restarted 04/19/19 under PCP direction PT/OT per protocol Monitor cognition closely Fall risk DC tomorrow (1) Basilar artery aneurysm (2) Cognitive deficits (3) Intracranial shunt (4) Hx of CABG (5) S/P AAA repair (6) Warfarin anticoagulation (7) Renal lithiasis (8) Ischemic cardiomyopathy (9) Brain aneurysm (10) PVD (peripheral vascular disease) (11) Weakness (12) SYL (obstructive sleep apnea) (13) Renal insufficiency (14) NPH (normal pressure hydrocephalus) (15) CAD (coronary artery disease) (16) Atrial fibrillation (17) COPD (chronic obstructive pulmonary disease) SOLO MENDENHALL DO Apr 13, 2019 09:15
--- NOTE | 2019-04-13 09:26 | NUR ---
provided prayer and Communion.
[2019-04-13] MEDS: ENOXAPARIN 40 MG/0.4 ML (LOVENOX) SYR SC SCH (10:08)
--- NOTE | 2019-04-13 11:06 | Occupational Ther Daily Note ---
OT Current Status-Daily Note Subjective Pt in bed, agrees to treatment. States he is anxious to go home tomorrow. No c/o pain. Mental Status/Objective Therapy Code Descriptions/Definitions Functional [place] Measure: 0=Not Assessed/NA 4=Minimal Assistance 1=Total Assistance 5=Supervision or Setup 2=Maximal Assistance 6=Modified [place] 3=Moderate Assistance 7=Complete [place] ADL-Treatment Pt supine to sit with modified independence. Gait to restroom with FWW. Pt transferred to toilet with modified independence using grab bar for safety. Pt doffed clothing without assistance while seated on toilet. Transfer to walk in shower with supervision for safety. Pt able to wash/dry all areas, but requires supervision for safety during standing while washing buttocks. Don pullover shirt with set up. Pt donned Depends and pants with set up. Donned shoes and socks with set up while seated. Pt stood at sink to brush teeth with modified independence. Shaved with electric razor with modified independence while seated EOB. Therapy Code Descriptions/Definitions Functional [place] Measure: 0=Not Assessed/NA 4=Minimal Assistance 1=Total Assistance 5=Supervision or Setup 2=Maximal Assistance 6=Modified [place] 3=Moderate Assistance 7=Complete [place] Therapy Quality Codes: 6 Independent with activity with or without an assistive device 5 Patient requires set up or clean up by helper. Patient completes activity by themselves 4 Supervision or touching assist (CGA). [place] provide cues , steadying assist 3 The helper provides less than half the effort to complete the activity 2 The helper provides more than half the effort to complete the activity 1 Dependent. The helper does all the effort to complete an activity 7 Patient refused to complete or attempt activity 9 The patient did not perform the activity before the current illness or injury 88 Not attempted due to Medical conditions or safety concerns Eating (FIM): 7 (Pt reports feeding self, managing containers, and cutting food without assist) Eating (QC): 6 Grooming (FIM): 6 Oral Hygiene (QC): 6 Bathing (FIM): 5 Shower/Bathe Self (QC): 4 Upper Body (FIM): 5 Upper Body Dressing (QC): 5 Lower Body Dressing (FIM): 5 Lower Body Dressing (QC): 5 On/Off Footwear (QC): 5 Toilet/Commode Transfer (FIM): 6 Toilet Transfer (QC): 6 Shower Transfer(FIM): 5 Other Treatment Gait to therapy gym with FWW, occasional cues for safety. Arm bike [id number] to increase overall strength and activity tolerance needed for functional tasks. Pt completed activity with moderate resistance and steady pace. No rest breaks needed. Pt completed fine motor task with nuts and bolts using bilateral UE with 2# weights in place to increase strength and coordination skills. Graded clothespin activity with bilateral hands to increase flamer after lasting/pinch strength. Pt returned to room, sitting with needs met and spouse present after session. Plan is for pt to d/c home with spouse tomorrow. Pt states no questions or concerns. OT Short Term Goals Short Term Goals Time Frame: Apr 11, 2019 Lower Body Dressing(FIM): 5 Toileting(FIM): 5 Transfers (B,C,W/C) (FIM): 5 (met) Toilet/Commode Transfer(FIM): 5 Additional Short Term Goals: 1-Demonstrate ADL Tasks, 2-Verbalize Understanding, 3-ImproveStrength/Ronit 1=Demonstrate adherence to instructed precautions during ADL tasks. 2=Patient will verbalize/demonstrate understanding of assistive devices/modifications for ADL. 3=Patient will improve strength/tolerance for activity to enable patient to perform ADL's. OT Detention Goals Customer Management Specialist Goals Time Frame: Apr 25, 2019 Eating (FIM): 7 (met 04/13/19) Eating (QC): 6 (6-MET) Groomin (met 04/13/19) Oral Hygiene (QC): 6 (6-MET) Bathing(FIM): 5 (met 04/13/19) Shower/Bathe Self (QC): 5 Upper Body Dressing(FIM): 6 (not met) Upper Body Dressing (QC): 6 (5-not met) Lower Body Dressing(FIM): 6 (not met) Lower Body Dressing (QC): 6 (5-not met) On/Off Footwear (QC): 6 Toileting(FIM): 6 Toileting Hygiene (QC): 6 Toilet/Commode Transfer(FIM): 6 (met 04/13/19) Toilet/Commode Transfer (QC): 6 (6-met) Shower Transfer(FIM): 5 (met 04/13/19) Additional Goals: 1-Demonstrate ADL Tasks, 2-Verbalize Understanding, 3-Impr oveStrength/Ronit 1=Demonstrate adherence to instructed precautions during ADL tasks. 2=Patient will verbalize/demonstrate understanding of assistive devices/modifications for ADL. 3=Patient will improve strength/tolerance for activity to enable patient to perform ADL's. OT Education/Plan Discharge Recommendations Plan/Recommendations: Continue POC Treatment Plan/Plan of Care Patient would benefit from OT for education, treatment and training to promote independence in ADL's, mobility, safety and/or upper extremity function for ADL's. Plan of Care: ADL Retraining, Functional Mobility, UE Funct Exercise/Act Treatment Duration: Apr 25, 2019 Frequency: At least 5 of 7 days/Wk (IRF) Estimated Hrs Per Day: 1.5 hours per day Agreement: Yes Rehab Potential: Good Time/GCodes Start Time: 08:00 Stop Time: 09:15 Total Time Billed (hr/min): 75 Billed Treatment Time 1 visit, ADLx2(35minutes), EX(40minutes) RICHIE MEJIA OT Apr 13, 2019 11:06
--- NOTE | 2019-04-13 11:53 | Physical Therapy Daily Note ---
PT Daily Note-Current Subjective Pt. agrees to Rx. States he is so very ready to go home tomorrow Pain Location: No Pain Reported Mental Status Patient Orientation: Normal For Age Attachments: Other-See Comments (cochlear device) Transfers Therapy Code Descriptions/Definitions Functional [place] Measure: 0=Not Assessed/NA 4=Minimal Assistance 1=Total Assistance 5=Supervision or Setup 2=Maximal Assistance 6=Modified [place] 3=Moderate Assistance 7=Complete [place] Therapy Quality Codes: 6 Independent with activity with or without an assistive device 5 Patient requires set up or clean up by helper. Patient completes activity by themselves 4 Supervision or touching assist (CGA). [place] provide cues , steadying assist 3 The helper provides less than half the effort to complete the activity 2 The helper provides more than half the effort to complete the activity 1 Dependent. The helper does all the effort to complete an activity 7 Patient refused to complete or attempt activity 9 The patient did not perform the activity before the current illness or injury 88 Not attempted due to Medical conditions or safety concerns Transfers (B, C, W/C) (FIM): 6 Scootin Rollin Roll Left to Right (QC): 6 Supine to/from Sit: 6 Sit to/from Stand: 6 Sit to Lying (QC): 6 Sit to Stand (QC): 6 Chair/Asz-we-Rxtqg Xfer(QC): 6 Bed to/from Chair: 6 Car Transfer (QC): 6 Weight Bearing Full Weight Bearing Full Weight Bearing Gait Training Does the Patient Walk?: Yes Gait (FIM): 5 Distance (FIM): 3=150 ft (250x2,150) Walk 10 feet (QC): 5 Walk 50 ft with 2 Turns(QC): 5 Walk 150 ft (QC): 5 Walking 10ft/uneven surface-QC: 5 Gait Level of Assist: 5 Gait Persons Needed: 1 Gait Assistive Device: FWW pt. moves at fast pace, turns quickly without regard for safety and 2 LOB episodes requiring min to CGA to recover. Superv and instruction for slowing down and making balance and control his first priority, not speed was needed. Stair Training Stair Training: Handrails/: 1 handrail Stairs (FIM): 5 #of Steps: 4 1 Step (curb) (QC): 5 4 Steps (QC): 5 Stairs: Pattern: Reciprocal Level of Assist: 5 SBA and instruction for rail and to slow his speed etc. Balance Picking up an Object (QC): 5 Exercises Supine Ex: Bridging, Rolling, Straight leg raise Supine Reps: 8 NuStep Minutes: 10 NuStep Workload: 5 Assessment Current Status: Good Progress improved funct mob, impulsive and needs instruction to slow down and prioritize safety PT Short Term Goals Short Term Goals Time Frame: Apr 11, 2019 Transfers (B,C,W/C) (FIM): 5 (met) Gait (FIM): 5 (met) PT Photographic Plate Maker Goals Photographic Plate Maker Goals PT Usp Goals Time Frame: Apr 18, 2019 Transfers (B,C,W/C) (FIM): 7 Sit to Lying (QC): 6 Lying-Sitting on Side/Bed(QC): 6 Sit to Stand (QC): 6 Rollin Roll Left to Right (QC): 6 Chair/Jxv-bp-Qjvzt Xfer(QC): 6 Car Transfer (QC): 6 Does the Patient Walk: Yes Gait (FIM): 6 Gait distance (FIM): 3=150 ft Walk 10 feet (QC): 6 Walk 10ft-Uneven Surface(QC): 6 Walk 50ft with 2 Turns (QC): 6 Walk 150 ft (QC): 6 Gait Assistive Device: FWW Does the Pt use WC or Scooter?: No Stairs (FIM): 6 # of Steps: 12 1 Step (curb) (QC): 6 4 Steps (QC): 6 12 Steps (QC): 6 Picking up an Object (QC): 88 PT Plan Treatment/Plan Treatment Plan: Continue Plan of Care Treatment Plan: Bed Mobility, Education, Functional Activity Ronit, Functional Strength, Group Therapy, Gait, Safety, Therapeutic Exercise, Transfers Treatment Duration: Apr 18, 2019 Frequency: At least 5 of 7 days/Wk (IRF) Estimated Hrs Per Day: 1.5 hours per day Patient and/or Family Agrees t: Yes Safety Risks/Education Patient Education: Gait Training, Transfer Techniques, Steps, Correct Positioning, Disease Process, Safety Issues Teaching Recipient: Patient Teaching Methods: Demonstration, Discussion Response to Teaching: Verbalize Understanding, Return Demonstration, Reinforcement Needed Time/GCodes Time In: 1100 Time Out: 1200 Total Billed Treatment Time: 60 Total Billed Treatment 1,GT20m,FA25m,EX15m G Codes Necessary: No NEDRA ALVARADO HUMAN RESOURCES SAFETY MANAGER Apr 13, 2019 11:53
[2019-04-13] MEDS ORDERED: WARF3TAB56 PO (12:06)
[2019-04-13] MEDS ORDERED: ASPI325T32 PO (12:06)
--- NOTE | 2019-04-13 13:32 | Progress Note ---
Subjective Date Seen by a Provider: Apr 13, 2019 Time Seen by a Provider: 13:32 Objective Exam Last Set of Vital Signs Vital Signs Date Time Temp Pulse Resp B/P (MAP) Pulse Ox O2 Delivery O2 Flow Rate FiO2 04/13/19 09:00 Room Air 04/13/19 05:38 98.3 57 16 122/76 (91) 96 Capillary Refill : I&O Intake and Output 04/13/19 00:00 Intake Total 940 ml Balance 940 ml Intake Oral 940 ml # Voids 6 # Bowel Movements 1 General: Alert, Oriented X3, Cooperative, No Acute Distress HEENT: Atraumatic, PERRLA Neck: Supple Lungs: Clear to Auscultation, Normal Air Movement Heart: Regular Rate Abdomen: Normal Bowel Sounds, Soft Neuro: Cranial Nerves 3-12 NL Psych/Mental Status: Mental Status NL, Mood NL Assessment/Plan Assessment/Plan Assess & Plan/Chief Complaint HYPERTENSION CORONARY ARTERY DISEASE HX 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 - SEE MEDICATION LIST. CORONARY ARTERY DISEASE - STABLE HX ABDOMINAL ANEURYSM - AND RECENTLY DIAGNOSED BASILAR ARTERY ANEURYSM - DEFER TO SPECIALIST - FAMILY TO DISCUSS TREATMENT OPTIONS WITH THE DR. FARIAS ON TUESDAY NEXT WEEK 04/10/19 AT HIS NPH SHUNT FOLLOW UP. 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 GAIT INSTABILITY WITH GENERALIZED WEAKNESS - PT IS TO RECEIVE PHYSICAL AND OCCUPATIONAL THERAPY IN THE INPT REHAB UNIT TO GET MICHAEL STRONG ENOUGH FOR RETURN TO HOME. DEPRESSION - STABLE ON CITALOPRAM. HARD OF HEARING S/P COCHLEAR IMPLANT - CONTINUE WITH USE OF IMPLANT - HE HAS SOME ISSUE WITH KEEPING THE MAGNET IN PLACE. HYPERLIPIDEMIA - RESUME HOME REGIMEN RESTLESS LEG SYNDROME - RESTART ROPINIROLE ATRIAL FIBRILLATION - HOLD COUMADIN PER DIRECTIONS FROM DISCHARGE SUMMARY - THEY HAD HIM ON HEPARIN, THIS WAS CHANGED TO LOVENOX PER DR. MENDENHALL - IN REHAB PHYSICIAN. CHRONIC ANTICOAGULATION - CONTINUE WITH LOVENOX FOR AFIB - PT HAS BEEN IN AND OUT OF AFIB MULTIPLE TIMES DURING THIS HOSPITALIZATION. Clinical Quality Measures DVT/VTE Risk/Contraindication: Risk Factor Score Per Nursin RFS Level Per Nursing on Admit: 4+=Very High DAPHNE BHATT MD Apr 13, 2019 13:32
--- NOTE | 2019-04-13 13:48 | Physical Therapy Daily Note ---
PT Daily Note-Current Subjective Family present and inquire about home exercise. Pt. will have OP PT and OT. Pt. and family educated regarding pts risk for falls secondary to impulsive nature and movements. Pt. to practice safe gait techniques he has learned and safety awareness and go to contd therapies out patient Pain Location: No Pain Reported Mental Status Patient Orientation: Person, Place, Time, Situation Transfers Therapy Code Descriptions/Definitions Functional [place] Measure: 0=Not Assessed/NA 4=Minimal Assistance 1=Total Assistance 5=Supervision or Setup 2=Maximal Assistance 6=Modified [place] 3=Moderate Assistance 7=Complete [place] Therapy Quality Codes: 6 Independent with activity with or without an assistive device 5 Patient requires set up or clean up by helper. Patient completes activity by themselves 4 Supervision or touching assist (CGA). [place] provide cues , steadying assist 3 The helper provides less than half the effort to complete the activity 2 The helper provides more than half the effort to complete the activity 1 Dependent. The helper does all the effort to complete an activity 7 Patient refused to complete or attempt activity 9 The patient did not perform the activity before the current illness or injury 88 Not attempted due to Medical conditions or safety concerns all TRFs SBA to Mod I, floor TRFs done this afternoon as pt. is educated about his risk for falls and that if he should have a fall and is not injured he could crawl to a chair or horizontal surface and come to sitting etc. Pt. did TRF this way CGA and instruction Weight Bearing Full Weight Bearing Full Weight Bearing Gait Training Does the Patient Walk?: Yes Gait Assistive Device: FWW gait concentrating on control and turning with more control as pt. tends to lift FWW carrying it and spins around quickly unsafely Exercises Supine Ex: Bridging, Rolling, Heel Slides, Scooting, Straight leg raise, Hip abd/add Supine Reps: 15 Treatments crawling, up on all 4s for balance challenges perturbations, no LOB Assessment Current Status: Good Progress at risk for falls , needs reminders secondary to impulsive nature PT Short Term Goals Short Term Goals Time Frame: Apr 11, 2019 Transfers (B,C,W/C) (FIM): 5 (met) Gait (FIM): 5 (met) PT Penitentiary Goals Penitentiary Goals PT Tube Repairer Goals Time Frame: Apr 18, 2019 Transfers (B,C,W/C) (FIM): 7 Sit to Lying (QC): 6 Lying-Sitting on Side/Bed(QC): 6 Sit to Stand (QC): 6 Rollin Roll Left to Right (QC): 6 Chair/Zyz-lo-Spxaf Xfer(QC): 6 Car Transfer (QC): 6 Does the Patient Walk: Yes Gait (FIM): 6 Gait distance (FIM): 3=150 ft Walk 10 feet (QC): 6 Walk 10ft-Uneven Surface(QC): 6 Walk 50ft with 2 Turns (QC): 6 Walk 150 ft (QC): 6 Gait Assistive Device: FWW Does the Pt use WC or Scooter?: No Stairs (FIM): 6 # of Steps: 12 1 Step (curb) (QC): 6 4 Steps (QC): 6 12 Steps (QC): 6 Picking up an Object (QC): 88 PT Plan Treatment/Plan Treatment Plan: Continue Plan of Care Treatment Plan: Bed Mobility, Education, Functional Activity Ronit, Functional Strength, Group Therapy, Gait, Safety, Therapeutic Exercise, Transfers Treatment Duration: Apr 18, 2019 Frequency: At least 5 of 7 days/Wk (IRF) Estimated Hrs Per Day: 1.5 hours per day Patient and/or Family Agrees t: Yes Safety Risks/Education Patient Education: Gait Training, Transfer Techniques, Correct Positioning, Disease Process, Safety Issues Teaching Recipient: Patient Teaching Methods: Demonstration, Discussion Response to Teaching: Verbalize Understanding, Return Demonstration, Reinforcement Needed Time/GCodes Time In: 1305 Time Out: 1335 Total Billed Treatment Time: 30 Total Billed Treatment 1,FA20m,EX10m G Codes Necessary: No NEDRA ALVARADO SHOES SALESPERSON Apr 13, 2019 13:48
--- NOTE | 2019-04-13 14:30 | NUR ---
As requested by patient LOOSELEAF BINDER COVERER spoke with patient's regarding options for home health services versus outpatient services. As patient will likely not maintain homebound status for home health, team is recommending patient proceed with outpatient therapies as both PT and OT are needed, [facility] is the only provider in [facility] that offers both services. Patient spouse to like to proceed with a referral for therapies. LOOSELEAF BINDER COVERER sent referral and requested that patient call the office on Tuesday to schedule. LOOSELEAF BINDER COVERER inquired about last minute concerns regarding discharge plans for tomorrow, neither patient or spouse expressed concerns. LOOSELEAF BINDER COVERER reviewed IMM and patient choice letter, signatures provided on both. Spouse will provide transport home tomorrow around 10am. Please see discharge summary for further information.
--- NOTE | 2019-04-13 15:53 | Speech Therapy Daily Note ---
Speech Daily Progress Note Subjective Date Seen by Provider: Apr 13, 2019 Time Seen by Provider: 00:30 The patient is excited he is discharging to his home tomorrow. Objective The patient completed a series of memory tasks with 90% accuracy given minimal verbal cues. Assessment Assessment Current Status: Good Progress Treatment Plan Discontinue ST, Goals Met Communication Comprehension: 7 Expression: 7 Social Cognition Social Interaction: 7 Problem Solvin Memory: 7 Speech Short Term Goals Short Term Goals Short Term Goals 1) The patient will complete memory tasks with 90% or greater with minimal verbal cues. Met 2) The patient will complete problem solving tasks with 90% or greater with minimal verbal cues. Met 3) The patient will demonstrate following multi-step directions with 90% or greater with minimal verbal cues. Met Speech Group Home Goals Smasher Goals The patient will improve his safety and independence in order to return home safely. Met Speech-Plan Patient/Family Goals Patient/Family Goals: The patient is discharging to his home on Tuesday with his . Treatment Plan Speech Therapy Treatment Plan: Discontinue ST, Goals Met Patient has made good progress as a result of skilled ST services. Treatment Duration: Apr 14, 2019 Frequency: 5 times per week Estimated Hrs Per Day: .5 hour per day Rehab Potential: Good Barriers to Learning: None at this time. Pt/Family Agrees to Plan: Yes Safety Risks/Education Teaching Recipient: Patient Teaching Methods: Discussion Response to Teaching: Verbalize Understanding Education Topics Provided: Continued safety upon his return home. Time Speech Therapy Time In: 15:00 Speech Therapy Time Out: 15:30 Total Billed Time: 30 Billed Treatment Time 1, SYLVIA [place] Apr 13, 2019 15:53
[2019-04-13 16:31] VITALS: BP 115/67
[2019-04-13] MEDS: FLUTICASONE NASAL SPRAY (FLONASE) 16 GM BTL NS SCH (20:43)
[2019-04-13] MEDS: TAMSULOSIN 0.4 MG (FLOMAX) CAP PO SCH (20:44)
[2019-04-13] MEDS: ATORVASTATIN 80 MG (LIPITOR) TABLET PO SCH (20:44)
[2019-04-13] MEDS: rOPINIRole 0.25 MG (REQUIP) TAB PO SCH (20:44)
[2019-04-14 05:39] VITALS: BP 139/86
[2019-04-14] MEDS: POLYETHYLENE GLYCOL 17 GM (MIRALAX) PACK PO SCH (08:05)
[2019-04-14] MEDS: SENNA W/DOCUSATE (SENOKOT S) TABLET PO SCH (08:22)
[2019-04-14] MEDS: VITAMIN D3 5,000 UNITS (CHOLECALCIFEROL ) CAPSULE PO SCH (08:22)
[2019-04-14] MEDS: MULTIVIT W/MINERALS TAB (THERAGRAN M) PO SCH (08:22)
[2019-04-14] MEDS: ASPIRIN E.C. 325 MG (ECOTRIN) TABLET PO SCH (08:22)
[2019-04-14] MEDS: AMIODARONE 200 MG (CORDARONE) TAB PO SCH (08:22)
[2019-04-14] MEDS: ALLOPURINOL 100 MG (ZYLOPRIM) TAB PO SCH (08:22)
[2019-04-14] MEDS: LOSARTAN 50 MG (COZAAR) TAB PO SCH (08:22)
[2019-04-14] MEDS: LORATADINE (CLARITIN) 10 MG TAB PO SCH (08:22)
[2019-04-14] MEDS: PANTOPRAZOLE 40 MG (PROTONIX) TAB PO SCH (08:22)
[2019-04-14] MEDS: SPIRONOLACTONE 25 MG (ALDACTONE) TAB PO SCH (08:24)
--- NOTE | 2019-04-14 09:24 | NUR ---
ANA WALKER demonstrates understanding of discharge instructions and accurately returns instructions upon questioning. Copy of Post-Discharge Instructions given to pt and pts . ANA WALKER is able to manage continuing needs after discharge with outpt therapy. Patients belongings returned to . Patient discharged from [facility] on 04-14-19 at 0925. ANA WALKER left floor via , accompanied by .
[2019-04-14 09:27] VITALS: BP 139/86
--- NOTE | 2019-04-14 15:04 | Discharge Summary ---
Diagnosis/Chief Complaint Date of Admission Apr 04, 2019 at 12:46 Date of Discharge Apr 14, 2019 at 09:31 Discharge Date: Apr 14, 2019 Discharge Diagnosis Assessment: (1) Brain aneurysm (2) NPH (normal pressure hydrocephalus) (3) Intracranial shunt (4) Basilar artery aneurysm (5) Weakness (6) CAD (coronary artery disease) (7) PVD (peripheral vascular disease) (8) S/P AAA repair (9) Renal insufficiency (10) Renal lithiasis (11) Ischemic cardiomyopathy (12) Warfarin anticoagulation (13) COPD (chronic obstructive pulmonary disease) (14) SYL (obstructive sleep apnea) (15) Hx of CABG (16) Atrial fibrillation (17) cognitive deficits Plan: Anticoagulation will be restarted 04/19/19 under PCP direction PT/OT per protocol Monitor cognition closely Fall risk DC tomorrow Discharge Summary Discharge Physical Examination Allergies: Coded Allergies: amoxicillin (Verified Allergy, Severe, RASH, 12/26/18) clavulanic acid (Verified Allergy, Severe, RASH, 12/26/18) Iodinated Contrast- Oral and IV Dye (Verified Allergy, Unknown, 12/26/18) Vitals & I&Os Vital Signs Date Time Temp Pulse Resp B/P (MAP) Pulse Ox O2 Delivery O2 Flow Rate FiO2 04/14/19 09:27 63 18 139/86 97 Room Air 04/14/19 05:39 98.0 General Appearance: Alert, Oriented X3, Cooperative Respiratory: Clear to Auscultation, Normal Air Movement Neuro: Normal Gait, Normal Speech, Strength at 5/5 X4 Ext Psych/Mental Status: Mood NL, Other (NAKNEK) Hospital Course Was the Problem List Reviewed?: Yes Hospital course: Patient had an uneventful 10-day hospital course after he was admitted after returning from [facility] after shunts placed for NPH. He did have significant cognitive issues which were managed aggressively with good results. Coumadin was held per neurosurgery recommendations until April 19. Patient was maintained on Lovenox for DVT prophylaxis. Impulsiveness and high risk for falls required extensive physical therapy and safety prevention counseling. Blood pressure remained stable. Bowels remain stable and eating and drinking without dysphasia was maintained. He was back to prior level of functioning actually improved since admission considering multiple falls and severe debility prior to coming to the inpatient rehab unit status post management of NPH. Cochlear implants were helpful but not completely in assisting communication. Cerebral aneurysm will be managed at [facility]. Patient participated in all therapies and everything required of inpatient rehab. Labs (last 24 hrs) Laboratory Tests 04/05/19 04:05: White Blood Count 7.6, Red Blood Count 3.90L, Hemoglobin 11.8L, Hematocrit 35L, Mean Corpuscular Volume 91, Mean Corpuscular Hemoglobin 30, Mean Corpuscular Hemoglobin Concent 33, Red Cell Distribution Width 14.4, Platelet Count 194, Mean Platelet Volume 9.5, Neutrophils (%) (Auto) 70, Lymphocytes (%) (Auto) 18, Monocytes (%) (Auto) 8, Eosinophils (%) (Auto) 4, Basophils (%) (Auto) 0, Neutrophils # (Auto) 5.3, Lymphocytes # (Auto) 1.4, Monocytes # (Auto) 0.6, Eosinophils # (Auto) 0.3, Basophils # (Auto) 0.0, Prothrombin Time 13.9, INR Comment 1.0, Sodium Level 138, Potassium Level 4.2, Chloride Level 104, Carbon Dioxide Level 26, Anion Gap 8, Blood Urea Nitrogen 19H, Creatinine 1.17, Estimat Glomerular Filtration Rate 60, BUN/Creatinine Ratio 16, Glucose Level 89, Calcium Level 8.8, Corrected Calcium 9.1, Total Bilirubin 1.2H, Aspartate Amino Transf (AST/SGOT) 15, Alanine Aminotransferase (ALT/SGPT) 18, Alkaline Phosphatase 75, Total Protein 5.8L, Albumin 3.6 04/10/19 06:54: White Blood Count 8.2, Red Blood Count 4.28L, Hemoglobin 12.8L, Hematocrit 38L, Mean Corpuscular Volume 90, Mean Corpuscular Hemoglobin 30, Mean Corpuscular Hemoglobin Concent 33, Red Cell Distribution Width 14.7H, Platelet Count 209, Mean Platelet Volume 10.0, Neutrophils (%) (Auto) 72, Lymphocytes (%) (Auto) 15, Monocytes (%) (Auto) 7, Eosinophils (%) (Auto) 6, Basophils (%) (Auto) 0, Neutrophils # (Auto) 5.9, Lymphocytes # (Auto) 1.2, Monocytes # (Auto) 0.6, Eosinophils # (Auto) 0.5H, Basophils # (Auto) 0.0, Sodium Level 139, Potassium Level 4.4, Chloride Level 105, Carbon Dioxide Level 24, Anion Gap 10, Blood Urea Nitrogen 15, Creatinine 1.27, Estimat Glomerular Filtration Rate 54, BUN/Creatinine Ratio 12, Glucose Level 97, Calcium Level 9.5, Corrected Calcium 9.6, Total Bilirubin 1.3H, Aspartate Amino Transf (AST/SGOT) 17, Alanine Aminotransferase (ALT/SGPT) 26, Alkaline Phosphatase 83, Total Protein 6.9, Albumin 3.9 Pending Labs Laboratory Tests 04/05/19 04:05: White Blood Count 7.6, Red Blood Count 3.90, Hemoglobin 11.8, Hematocrit 35, Mean Corpuscular Volume 91, Mean Corpuscular Hemoglobin 30, Mean Corpuscular Hemoglobin Concent 33, Red Cell Distribution Width 14.4, Platelet Count 194, Mean Platelet Volume 9.5, Neutrophils (%) (Auto) 70, Lymphocytes (%) (Auto) 18, Monocytes (%) (Auto) 8, Eosinophils (%) (Auto) 4, Basophils (%) (Auto) 0, Neutrophils # (Auto) 5.3, Lymphocytes # (Auto) 1.4, Monocytes # (Auto) 0.6, Eosinophils # (Auto) 0.3, Basophils # (Auto) 0.0, Prothrombin Time 13.9, INR Comment 1.0, Sodium Level 138, Potassium Level 4.2, Chloride Level 104, Carbon Dioxide Level 26, Anion Gap 8, Blood Urea Nitrogen 19, Creatinine 1.17, Estimat Glomerular Filtration Rate 60, BUN/Creatinine Ratio 16, Glucose Level 89, Calcium Level 8.8, Corrected Calcium 9.1, Total Bilirubin 1.2, Aspartate Amino Transf (AST/SGOT) 15, Alanine Aminotransferase (ALT/SGPT) 18, Alkaline Phosphatase 75, Total Protein 5.8, Albumin 3.6 04/10/19 06:54: White Blood Count 8.2, Red Blood Count 4.28, Hemoglobin 12.8, Hematocrit 38, Mean Corpuscular Volume 90, Mean Corpuscular Hemoglobin 30, Mean Corpuscular Hemoglobin Concent 33, Red Cell Distribution Width 14.7, Platelet Count 209, Mean Platelet Volume 10.0, Neutrophils (%) (Auto) 72, Lymphocytes (%) (Auto) 15, Monocytes (%) (Auto) 7, Eosinophils (%) (Auto) 6, Basophils (%) (Auto) 0, Neutrophils # (Auto) 5.9, Lymphocytes # (Auto) 1.2, Monocytes # (Auto) 0.6, Eosinophils # (Auto) 0.5, Basophils # (Auto) 0.0, Sodium Level 139, Potassium Level 4.4, Chloride Level 105, Carbon Dioxide Level 24, Anion Gap 10, Blood Urea Nitrogen 15, Creatinine 1.27, Estimat Glomerular Filtration Rate 54, BUN/Creatinine Ratio 12, Glucose Level 97, Calcium Level 9.5, Corrected Calcium 9.6, Total Bilirubin 1.3, Aspartate Amino Transf (AST/SGOT) 17, Alanine Aminotransferase (ALT/SGPT) 26, Alkaline Phosphatase 83, Total Protein 6.9, Albumin 3.9 Discharge Home Medications: Active Scripts Active Aspirin EC (Aspirin) 325 Mg Tablet. 325 Mg PO DAILY Warfarin Sodium 3 Mg Tablet 3 Mg PO DAILY 30 Days Start Coumadin per DR Butcher instructions on 04/19/19 Reported Vitamin D3 (Cholecalciferol (Vitamin D3)) 5,000 Unit Tablet 5,000 Unit PO DAILY Nitroglycerin 0.4 Mg Tab.subl 0.4 Mg SL UD PRN Ropinirole HCl 0.25 Mg Tablet 0.25 Mg PO HS Refresh Tears (Carboxymethylcellulose Sodium) 15 Ml Drops 1 Drop OU DAILY PRN Lilly Allergy (Fexofenadine HCl) 180 Mg Tablet 180 Mg PO DAILY Citalopram HBr (Citalopram Hydrobromide) 40 Mg Tablet 40 Mg PO DAILY Atorvastatin Calcium 80 Mg Tablet 80 Mg PO HS Amiodarone HCl 200 Mg Tablet 200 Mg PO TID Multivitamins with Minerals (Multivitamin with Minerals) 1 Each Tablet 1 Tab PO DAILY Vitamin D3 (Cholecalciferol (Vitamin D3)) 1,000 Unit Capsule 1,000 Unit PO DAILY Flomax (Tamsulosin HCl) 0.4 Mg Cap 0.4 Mg PO HS Allopurinol 100 Mg Tablet 100 Mg PO DAILY Pantoprazole Sodium 40 Mg Tablet. 40 Mg PO DAILY Losartan Potassium 50 Mg Tablet 50 Mg PO DAILY Spironolactone 25 Mg Tablet 25 Mg PO DAILY Flonase Allergy Relief (Fluticasone Propionate) 9.9 Ml [place].susp 1 [place] NS HS Instructions to patient/family Please see electronic discharge instructions given to patient. Diagnosis/Problems Diagnosis/Problems (1) Basilar artery aneurysm (2) Cognitive deficits (3) Intracranial shunt (4) Hx of CABG (5) S/P AAA repair (6) Warfarin anticoagulation (7) Renal lithiasis (8) Ischemic cardiomyopathy (9) Brain aneurysm (10) PVD (peripheral vascular disease) (11) Weakness (12) SYL (obstructive sleep apnea) (13) Renal insufficiency (14) NPH (normal pressure hydrocephalus) (15) CAD (coronary artery disease) (16) Atrial fibrillation (17) COPD (chronic obstructive pulmonary disease) Clinical Quality Measures DVT/VTE Risk/Contraindication: Risk Factor Score Per Nursin RFS Level Per Nursing on Admit: 4+=Very High SOLO MENDENHALL DO Apr 14, 2019 15:04
--- NOTE | 2019-04-16 08:23 | Therapy Team Discharge Summary ---
Therapy Discharge Summary Discharge Recommendations Date of Discharge Apr 14, 2019 at 09:31 Therapy D/C Recommendations: Home w/ Family Support, Occupational Therapy Home Care Occupational Therapy Decreased Activ Tolerance, Decreased Safety Aware, Impaired Funct Balance, Impaired I ADL's, Impaired Self-Care Skills Speech-Language Pathology The patient was admitted to the ARU due to recent brain surgery for strengthening prior to returning home. Initially the patient presented with mild neurocognitive disorder as scored on the SLUMS. He received skilled ST for memory and problem solving abilities with focus on safety and independence. He was able to meet all goals and was discharged to home on 04/14/19. He was discharged from skilled ST at that time as well. PT Care Home Goals Care Home Goals PT Structural Iron Worker Goals Time Frame: Apr 18, 2019 Transfers (B,C,W/C) (FIM): 7 Roll Left to Right (QC): 6 Sit to Lying (QC): 6 Lying-Sitting on Side/Bed(QC): 6 Sit to Stand (QC): 6 Chair/Jjc-fg-Yayoy Xfer(QC): 6 Car Transfer (QC): 6 Does the Patient Walk: Yes Gait (FIM): 6 Gait distance (FIM): 3=150 ft Walk 10 feet (QC): 6 Walk 10ft-Uneven Surface(QC): 6 Walk 50ft with 2 Turns (QC): 6 Walk 150 ft (QC): 6 Gait Assistive Device: FWW Does the Pt use WC or Scooter?: No Stairs (FIM): 6 # of Steps: 12 1 Step (curb) (QC): 6 4 Steps (QC): 6 12 Steps (QC): 6 Picking up an Object (QC): 88 OT Structural Iron Worker Goals Care Home Goals Time Frame: Apr 25, 2019 Eating (FIM): 7 (met 04/13/19) Eating (QC): 6 (6-MET) Oral Hygiene (QC): 6 (6-MET) Grooming(FIM): 6 (met 04/13/19) Bathing(FIM): 5 (met 04/13/19) Shower/Bathe Self (QC): 5 Upper Body Dressing(FIM): 6 (not met) Upper Body Dressing (QC): 6 (5-not met) Lower Body Dressing(FIM): 6 (not met) Lower Body Dressing (QC): 6 (5-not met) On/Off Footwear (QC): 6 Toileting(FIM): 6 Toileting Hygiene (QC): 6 Toilet/Commode Transfer(FIM): 6 (met 04/13/19) Toilet/Commode Transfer (QC): 6 (6-met) Shower Transfer(FIM): 5 (met 04/13/19) Additional Goals: 1-Demonstrate ADL Tasks, 2-Verbalize Understanding, 3- ImproveStrength/Ronit 1=Demonstrate adherence to instructed precautions during ADL tasks. 2=Patient will verbalize/demonstrate understanding of assistive devices/modifications for ADL. 3=Patient will improve strength/tolerance for activity to enable patient to perform ADL's. Speech Care Home Goals Care Home Goals The patient will improve his safety and independence in order to return home safely. Met SYLVIA BECKER Apr 16, 2019 08:23
--- NOTE | 2019-04-16 16:08 | Therapy Team Discharge Summary ---
Therapy Discharge Summary Discharge Recommendations Date of Discharge Apr 14, 2019 at 09:31 Therapy D/C Recommendations: Home w/ Family Support, Occupational Therapy Home Care Physical Therapy This patient was seen on ARU post brain aneurysm and an acute hospital stay. prior to this event, he was indep to [facility] with all mobiltiy. Upon admission to this facility, he required min assist with transfers, gait and stairs. In addition, he demonstrated some impulsive behavior and decreased safety awareness. Treatment focused on functional strength and balance with heavy work on safety with gait and transitional movements as well as education on safety awareness with cues and work on improving his gait pattern. He did make progress and his safety improved; however he remained at a SBA level at mt. Pt is SBA with gait and transfers primarily due to the fact that he tries to complete tasks too quickly and does have decreased safety awareness. Pt to discharge home with his . Recommend follow up care on a HHC or outpt basis, depending on the patient's choice. DC PT Occupational Therapy Decreased Activ Tolerance, Decreased Safety Aware, Impaired Funct Balance, Impaired I ADL's, Impaired Self-Care Skills PT Cloth Bleaching Range Tender Goals Cloth Bleaching Range Tender Goals PT Cloth Bleaching Range Tender Goals Time Frame: Apr 18, 2019 Transfers (B,C,W/C) (FIM): 7 (scored a 6) Roll Left to Right (QC): 6 Sit to Lying (QC): 6 Lying-Sitting on Side/Bed(QC): 6 Sit to Stand (QC): 6 Chair/Qsw-ir-Jwzds Xfer(QC): 6 Car Transfer (QC): 6 Does the Patient Walk: Yes Gait (FIM): 6 (scored a 5) Gait distance (FIM): 3=150 ft Walk 10 feet (QC): 6 Walk 10ft-Uneven Surface(QC): 6 Walk 50ft with 2 Turns (QC): 6 Walk 150 ft (QC): 6 Gait Assistive Device: FWW Does the Pt use WC or Scooter?: No Stairs (FIM): 6 (scored a 5) # of Steps: 12 1 Step (curb) (QC): 6 4 Steps (QC): 6 12 Steps (QC): 6 Picking up an Object (QC): 88 goals not fully met as pt did continue to demonstrate decreased safety awareness which increases his risk for falls and still requires SBA with mobility with cues for safety. OT Group Home Goals Cloth Bleaching Range Tender Goals Time Frame: Apr 25, 2019 Eating (FIM): 7 (met 04/13/19) Eating (QC): 6 (6-MET) Oral Hygiene (QC): 6 (6-MET) Grooming(FIM): 6 (met 04/13/19) Bathing(FIM): 5 (met 04/13/19) Shower/Bathe Self (QC): 5 Upper Body Dressing(FIM): 6 (not met) Upper Body Dressing (QC): 6 (5-not met) Lower Body Dressing(FIM): 6 (not met) Lower Body Dressing (QC): 6 (5-not met) On/Off Footwear (QC): 6 Toileting(FIM): 6 Toileting Hygiene (QC): 6 Toilet/Commode Transfer(FIM): 6 (met 04/13/19) Toilet/Commode Transfer (QC): 6 (6-met) Shower Transfer(FIM): 5 (met 04/13/19) Additional Goals: 1-Demonstrate ADL Tasks, 2-Verbalize Understanding, 3- ImproveStrength/Ronit 1=Demonstrate adherence to instructed precautions during ADL tasks. 2=Patient will verbalize/demonstrate understanding of assistive devices/modifications for ADL. 3=Patient will improve strength/tolerance for activity to enable patient to perform ADL's. Speech Cloth Bleaching Range Tender Goals Cloth Bleaching Range Tender Goals The patient will improve his safety and independence in order to return home safely. Met LUBA SALAS PT Apr 16, 2019 16:08
--- NOTE | 2019-04-17 12:15 | Therapy Team Discharge Summary ---
Therapy Discharge Summary Discharge Recommendations Date of Discharge Apr 14, 2019 at 09:31 Therapy D/C Recommendations: Home w/ Family Support, Occupational Therapy Home Care Occupational Therapy Pt. was seen by occupational therapy to increase overall strength and independence with daily tasks. Pt. requires SBA with most ADLs due to decreased balance at times, as well as impulsivity. Pt. discharged home with spouse with recommendation of home health OT. All needs have been met at this facility and pt. has needed equipment. Decreased Activ Tolerance, Decreased Safety Aware, Impaired Funct Balance, Impaired I ADL's, Impaired Self-Care Skills PT Group Home Goals Radiation Control Health Physicist Goals PT Group Home Goals Time Frame: Apr 18, 2019 Transfers (B,C,W/C) (FIM): 7 (scored a 6) Roll Left to Right (QC): 6 Sit to Lying (QC): 6 Lying-Sitting on Side/Bed(QC): 6 Sit to Stand (QC): 6 Chair/Jps-yo-Jquhx Xfer(QC): 6 Car Transfer (QC): 6 Does the Patient Walk: Yes Gait (FIM): 6 (scored a 5) Gait distance (FIM): 3=150 ft Walk 10 feet (QC): 6 Walk 10ft-Uneven Surface(QC): 6 Walk 50ft with 2 Turns (QC): 6 Walk 150 ft (QC): 6 Gait Assistive Device: FWW Does the Pt use WC or Scooter?: No Stairs (FIM): 6 (scored a 5) # of Steps: 12 1 Step (curb) (QC): 6 4 Steps (QC): 6 12 Steps (QC): 6 Picking up an Object (QC): 88 OT Group Home Goals Radiation Control Health Physicist Goals Time Frame: Apr 25, 2019 Eating (FIM): 7 (met 04/13/19) Eating (QC): 6 (6-MET) Oral Hygiene (QC): 6 (6-MET) Grooming(FIM): 6 (met 04/13/19) Bathing(FIM): 5 (met 04/13/19) Shower/Bathe Self (QC): 5 Upper Body Dressing(FIM): 6 (not met) Upper Body Dressing (QC): 6 (5-not met) Lower Body Dressing(FIM): 6 (not met) Lower Body Dressing (QC): 6 (5-not met) On/Off Footwear (QC): 6 Toileting(FIM): 6 Toileting Hygiene (QC): 6 Toilet/Commode Transfer(FIM): 6 (met 04/13/19) Toilet/Commode Transfer (QC): 6 (6-met) Shower Transfer(FIM): 5 (met 04/13/19) Additional Goals: 1-Demonstrate ADL Tasks, 2-Verbalize Understanding, 3- ImproveStrength/Ronit 1=Demonstrate adherence to instructed precautions during ADL tasks. 2=Patient will verbalize/demonstrate understanding of assistive devices/modifications for ADL. 3=Patient will improve strength/tolerance for activity to enable patient to perform ADL's. Speech Radiation Control Health Physicist Goals Group Home Goals The patient will improve his safety and independence in order to return home safely. Met MERNA BRANCH OT Apr 17, 2019 12:15
== END 2019-04-14 09:31 | disposition home or self-care (01) | DRG 300 ==
PROVIDERS: ADMIT Internal Medicine; ATTEND Internal Medicine
DX: I72.5 Aneurysm of other precerebral arteries (principal); R26.81 Unsteadiness on feet; R29.6 Repeated falls; G91.2 (Idiopathic) normal pressure hydrocephalus; I25.10 Atherosclerotic heart disease of native coronary artery without angina pectoris; I25.5 Ischemic cardiomyopathy; I12.9 Hypertensive chronic kidney disease with stage 1 through stage 4 chronic kidney disease, or unspecified chronic kidney disease; N18.9 Chronic kidney disease, unspecified; G47.33 Obstructive sleep apnea (adult) (pediatric); I48.0 Paroxysmal atrial fibrillation; N20.0 Calculus of kidney; J44.9 Chronic obstructive pulmonary disease, unspecified; H54.3 Unqualified visual loss, both eyes; H91.92 Unspecified hearing loss, left ear; F32.9 Major depressive disorder, single episode, unspecified; E78.5 Hyperlipidemia, unspecified; G25.81 Restless legs syndrome; G47.00 Insomnia, unspecified; Z79.01 Long term (current) use of anticoagulants; Z98.2 Presence of cerebrospinal fluid drainage device; Z95.5 Presence of coronary angioplasty implant and graft; Z95.1 Presence of aortocoronary bypass graft; Z87.891 Personal history of nicotine dependence; Z97.4 Presence of external hearing-aid
CPT/HCPCS: 36415; 80053; 85025; 85610

== ENCOUNTER 2019-05-21 19:57 | Emergency (ER) | payer MEDICARE ==
[~2019-05-21] VITALS: Ht 182.9 cm; Wt 88.5 kg
[~2019-05-21 19:57] MED LIST changes: +ACET325T49 PO; +AMIO200T4 PO; +ASPI325T32 PO; +ATOR80TA76 PO; +CARB15DR OU; +CHOL10007 PO; +CHOL500044 PO; +CITA40TA11 PO; +CLOP75TA69 PO; +FEXO180T84 PO; +HEPA50002 SC; +MULT-166 PO; +NITR0.4T42 SL; +ROPI0.253 PO; +WARF3TAB56 PO
--- NOTE | 2019-05-21 20:18 | ED EENT ---
History of Present Illness General Chief Complaint: Nasal Problems Stated Complaint: NOSE BLEED Nursing Triage Note: Patient brought to ER room 03 with complaint of nosebleed today. Patient's family states patient has had multiple episodes of nose bleeds today and was at Dr. Butcher's office at 16:30. Patient had left nare cauterized today by Dr. Butcher. Patient had INR drawn today and family states they were told it was normal. Patient had a CT scan today of his head. Patient has a history of brain shunt with history of brain aneurysm. Patient also has a history of Normal Pressure Hydrocephalus. Patient's states the bleeding stopped after it was cauterized but started bleeding again several hours ago. Source: patient, family Exam Limitations: physical impairment ([place]) History of Present Illness Date Seen by Provider: May 21, 2019 Time Seen by Provider: 19:59 Initial Comments Patient presents to ER by private conveyance with chief complaint of nosebleed all day. He said this morning and was not as bad he went to Dr. Brown's office they did some silver nitrate cautery and since then it has continued to bleed. He does not use any nasal sprays. He does take Zyrtec for seasonal allergies. He is on warfarin for a shunt to keep the pressure alone an aneurysm in his brain managed by neurosurgery at [facility]. He also has a long history of coronary disease with 10 stents and multiple angioplasties. He's not having any chest pain shortness of breath on exertion. He says the bleeding however this evening has been far worse than the rest of the day but together. He does not have a history of nosebleeds. He denies falls or trauma. No shortness of breath wheezing stridor coughing. No nausea Allergies and Home Medications Allergies Coded Allergies: amoxicillin (Verified Allergy, Severe, RASH, 12/26/18) clavulanic acid (Verified Allergy, Severe, RASH, 12/26/18) Iodinated Contrast- Oral and IV Dye (Verified Allergy, Unknown, 12/26/18) Home Medications Allopurinol 100 Mg Tablet, 100 MG PO DAILY, (Reported) Amiodarone HCl 200 Mg Tablet, 200 MG PO TID, (Reported) Aspirin 325 Mg Tablet., 325 MG PO DAILY Prescribed by: SOLO MENDENHALL on 04/13/19 1206 Atorvastatin Calcium 80 Mg Tablet, 80 MG PO HS, (Reported) Carboxymethylcellulose Sodium 15 Ml Drops, 1 DROP OU DAILY PRN for DRY EYES, (Reported) Cholecalciferol (Vitamin D3) 1,000 Unit Capsule, 1,000 UNIT PO DAILY, (Reported) Cholecalciferol (Vitamin D3) 5,000 Unit Tablet, 5,000 UNIT PO DAILY, (Reported) Citalopram Hydrobromide 40 Mg Tablet, 40 MG PO DAILY, (Reported) Fexofenadine HCl 180 Mg Tablet, 180 MG PO DAILY, (Reported) Fluticasone Propionate 9.9 Ml [place].susp, 1 SPRAY NS HS, (Reported) Losartan Potassium 50 Mg Tablet, 50 MG PO DAILY, (Reported) Multivitamin with Minerals 1 Each Tablet, 1 TAB PO DAILY, (Reported) Nitroglycerin 0.4 Mg Tab.subl, 0.4 MG SL UD PRN for CHEST PAIN, (Reported) Pantoprazole Sodium 40 Mg Tablet.dr, 40 MG PO DAILY, (Reported) Ropinirole HCl 0.25 Mg Tablet, 0.25 MG PO HS, (Reported) Spironolactone 25 Mg Tablet, 25 MG PO DAILY, (Reported) Tamsulosin HCl 0.4 Mg Cap, 0.4 MG PO HS, (Reported) Warfarin Sodium 3 Mg Tablet, 3 MG PO DAILY Start Coumadin per DR Butcher instructions on 04/19/19 Prescribed by: SOLO MENDENHALL on 04/13/19 1206 Patient Home Medication List Home Medication List Reviewed: Yes Review of Systems Review of Systems Constitutional: No chills, No diaphoresis Eyes: Denies Blindness, Denies Blurred Vision Ears: Denies Dizziness, Denies Pain Nose: see HPI; denies clots, denies congestion; epistaxis (left naris); denies pain; bloody discharge Mouth: denies clots, denies loose teeth Throat: denies pain, denies swelling Past Tdbvwmu-Mjlmcp-Kmqlwv Hx Patient Social History Alcohol Use: Denies Use Recreational Drug Use: No Smoking Status: Never a Smoker 2nd Hand Smoke Exposure: No Recent Foreign Travel: No Contact w/Someone Who Travel: No Recent Infectious Disease Expo: No Recent Hopitalizations: Yes (12/2018-DIVERTICULITIS/GI BLEED - 03/2019 NPH WITH SUPERVISOR HOT DIP PLATING SHUNT) Immunizations Up To Date Date of Pneumonia Vaccine: Jun 11, 2017 Date of Influenza Vaccine: Jul 08, 2018 Seasonal Allergies Seasonal Allergies: Yes Past Medical History Surgeries: Yes (HEART STENTS X11, HEART BALLOONS X5, BILAT INGUINAL HERNIA, ) Brain Shunt, Cardiac, Coronary Stent, Gallbladder, Vascular Surgery Respiratory: Yes (USES CPAP) Sleep Apnea Currently Using CPAP: Yes Currently Using BIPAP: No Cardiac: Yes (STENTS X11 TOTAL, 5 HEART BALLOON PROCEDURES) Aneurysm, Atrial Fibrillation, Cardiomyopathy, Chronic Edema/Swelling, Coronary Artery Disease, High Cholesterol, Hypertension, Peripheral Vascular Neurological: No Reproductive Disorders: No Sexually Transmitted Disease: No HIV/AIDS: No Genitourinary: No Kidney Stones Gastrointestinal: Yes Abdominal Hernia, Diverticulosis Musculoskeletal: Yes Arthritis Endocrine: No HEENT: Yes (READING GLASSES, Meniere's DX, Cochlear implant- right) Loss of Vision: Bilateral Hearing Impairment: Hard of Hearing, Hearing Aide Left Cancer: No Psychosocial: Yes Depression Integumentary: No Blood Disorders: No Adverse Reaction/Blood Tranf: No (N/A) Family Medical History Heart Disease, Hypertension Physical Exam Vital Signs Vital Signs - First Documented 05/21/19 20:03 Temp 97.6 Pulse 73 Resp 18 B/P (MAP) 125/83 (97) Pulse Ox 91 O2 Delivery Room Air Height, Weight, BMI Height: 6'0" Weight: 195lbs. 1.2oz. [id number]; 27.9 BMI Method:Stated General Appearance: WD/WN, no apparent distress Eyes: bilateral eye normal inspection, bilateral eye PERRL, bilateral eye EOMI Ears: bilateral ear auricle normal, bilateral ear canal normal, bilateral ear TM normal Nose: No active bleeding, No discharge; dried blood, other (left posterior naris evidence of recent bleeding with some irritation of the medial wall and no visualized polyp) Neck: non-tender, full range of motion, normal inspection Cardiovascular: normal peripheral pulses, regular rate, rhythm, no edema Respiratory: no respiratory distress, no accessory muscle use Progress/Results/Core Measures Results/Orders Lab Results Laboratory Tests Test 05/21/19 20:15 Range/Units White Blood Count 8.3 4.3-11.0 10^3/uL Red Blood Count 4.45 4.35-5.85 10^6/uL Hemoglobin 13.4 13.3-17.7 G/DL Hematocrit 40 40-54 % Mean Corpuscular Volume 89 80-99 FL Mean Corpuscular Hemoglobin 30 25-34 PG Mean Corpuscular Hemoglobin Concent 34 32-36 G/DL Red Cell Distribution Width 15.3 H 10.0-14.5 % Platelet Count 249 130-400 10^3/uL Mean Platelet Volume 9.8 7.4-10.4 FL Neutrophils (%) (Auto) 62 42-75 % Lymphocytes (%) (Auto) 27 12-44 % Monocytes (%) (Auto) 9 0-12 % Eosinophils (%) (Auto) 2 0-10 % Basophils (%) (Auto) 0 0-10 % Neutrophils # (Auto) 5.2 1.8-7.8 X 10^3 Lymphocytes # (Auto) 2.2 1.0-4.0 X 10^3 Monocytes # (Auto) 0.8 0.0-1.0 X 10^3 Eosinophils # (Auto) 0.1 0.0-0.3 10^3/uL Basophils # (Auto) 0.0 0.0-0.1 10^3/uL Prothrombin Time 26.9 H 12.2-14.7 SEC INR Comment 2.4 H 0.8-1.4 Sodium Level 138 135-145 MMOL/L Potassium Level 4.4 3.6-5.0 MMOL/L Chloride Level 105 98-107 MMOL/L Carbon Dioxide Level 20 L 21-32 MMOL/L Anion Gap 13 5-14 MMOL/L Blood Urea Nitrogen 25 H 7-18 MG/DL Creatinine 1.61 H 0.60-1.30 MG/DL Estimat Glomerular Filtration Rate 41 BUN/Creatinine Ratio 16 Glucose Level 110 H 70-105 MG/DL Calcium Level 9.3 8.5-10.1 MG/DL My Orders Orders - MARIIA BANEGAS Oxymetazoline 0.05% Nasal Hadar (Afrin 0. (05/21/19 21:00) Vital Signs/I&O 05/21/19 20:03 Temp 97.6 Pulse 73 Resp 18 B/P (MAP) 125/83 (97) Pulse Ox 91 O2 Delivery Room Air Blood Pressure Mean: 97 Progress Progress Note #1: Time: 20:17 Progress Note The patient does not have an acute bleed this moment but we will give him 3 sprays of oxymetazoline up each nostril and observe him for an hour recheck a basic blood count, BNP and PT/INR. Progress Note #2: Time: 20:50 Progress Note The patient has had no bleeding since he's been in the ER. Labs are fine. We gave him good counseling how to manage his nosebleeds if they happen and return precautions. He is okay with this plan and ready to go home. Departure Impression Primary Impression: Epistaxis Disposition: 01 HOME, SELF-CARE Condition: Stable Departure-Patient Inst. Decision time for Depature: 20:50 Referrals: DAPHNE BUTCHER MD (PCP/Family) Primary Care Physician Patient Instructions: Nosebleeds (DC) Add. Discharge Instructions: Before you've a CPAP mask on make sure that the humidifier tank is full of water. Put 1-2 puffs of nasal saline up each nostril before putting the CPAP mask on. Use 2-3 puffs of oxymetazoline [id number]-nbudiin nasal spray before putting the CPAP mask on. If your bleeding starts again then you should put 4 puffs of oxymetazoline up the affected nostril and applied direct pressure. Sit up and lean forward. Spit out any bloody discharge, do not swallow it. Apply direct pressure across the nose with your hand and do not let up even for one second. After 20 minutes you may remove direct pressure to see if you have stopped bleeding. If it continues to bleed then you may return to the ER for appropriate management. Maintain pressure on the nose otherwise. All discharge instructions reviewed with patient and/or family. Voiced understanding. Scripts Oxymetazoline HCl (Oxymetazoline HCl) 30 Ml [place] 2-3 PUFF NS Q4H PRN for nose bleed, #1 EA 0 Refills Prov: MARIIA BANEGAS 05/21/19 MARIIA BANEGAS May 21, 2019 20:18
[2019-05-21 20:29] LABS: BASOPHILS % (AUTO) 0 % (0-10); EOSINOPHILS # (AUTO) 0.1 10^3/uL (0.0-0.3); EOSINOPHILS % (AUTO) 2 % (0-10); HEMATOCRIT 40 % (40-54); HEMOGLOBIN 13.4 G/DL (13.3-17.7); LYMPHOCYTES # (AUTO) 2.2 X 10^3 (1.0-4.0); LYMPHOCYTES % (AUTO) 27 % (12-44); MEAN CORPUSCULAR HEMOGLOBIN 30 PG (25-34); MEAN CORPUSCULAR HGB CONC 34 G/DL (32-36); MEAN CORPUSCULAR VOLUME 89 FL (80-99); MEAN PLATELET VOLUME 9.8 FL (7.4-10.4); MONOCYTES # (AUTO) 0.8 X 10^3 (0.0-1.0); MONOCYTES % (AUTO) 9 % (0-12); NEUTROPHILS # (AUTO) 5.2 X 10^3 (1.8-7.8); NEUTROPHILS % (AUTO) 62 % (42-75); PLATELET COUNT 249 10^3/uL (130-400); RED CELL DISTRIBUTION WIDTH 15.3 % (10.0-14.5); WHITE BLOOD COUNT 8.3 10^3/uL (4.3-11.0)
[2019-05-21 20:38] LABS: INR 2.4 (0.8-1.4); PROTHROMBIN TIME PATIENT 26.9 SEC (12.2-14.7)
[2019-05-21 20:43] LABS: CALCIUM 9.3 MG/DL (8.5-10.1); CREATININE SERUM 1.61 MG/DL (0.60-1.30); POTASSIUM 4.4 MMOL/L (3.6-5.0)
[2019-05-21] MEDS ORDERED: OXYM-12 NS (20:54)
[2019-05-21] MEDS ORDERED: OXYMETAZOLINE (AFRIN) 0.05% NA 15 ML BTL SCH (21:00)
[2019-05-21 21:10] VITALS: BP 121/77
== END 2019-05-21 21:11 | disposition home or self-care (01) ==
LOC: EDUNIT# 19:57 → ER 19:58
DX: R04.0 Epistaxis (principal); I25.10 Atherosclerotic heart disease of native coronary artery without angina pectoris; G47.30 Sleep apnea, unspecified; I10 Essential (primary) hypertension; E78.00 Pure hypercholesterolemia, unspecified; I42.9 Cardiomyopathy, unspecified; I48.91 Unspecified atrial fibrillation; I73.9 Peripheral vascular disease, unspecified; F32.9 Major depressive disorder, single episode, unspecified; Z82.49 Family history of ischemic heart disease and other diseases of the circulatory system; Z87.442 Personal history of urinary calculi; Z95.5 Presence of coronary angioplasty implant and graft; Z79.01 Long term (current) use of anticoagulants; Z88.1 Allergy status to other antibiotic agents; Z91.041 Radiographic dye allergy status; Z79.82 Long term (current) use of aspirin; Z79.51 Long term (current) use of inhaled steroids; Z98.890 Other specified postprocedural states
CPT/HCPCS: 36415; 80048; 85025; 85610; 99282

== ENCOUNTER 2019-05-24 16:54 | Inpatient (IN) | payer MEDICARE ==
[2019-05-24] VITALS (25 sets, daily range): BP systolic 122–174; BP diastolic 70–98
[~2019-05-24] VITALS: Ht 182.9 cm; Wt 93.6 kg
[~2019-05-24 16:54] MED LIST changes: +OXYM-12 NS
[2019-05-24] MEDS ORDERED: PHENYLEPHRINE 0.5% NASAL SPR (NEO-SYNEPHRINE) REG ONE (17:01)
[2019-05-24] MEDS ORDERED: COCAINE HCL 4% 2 ML SYR ONE (17:01)
[2019-05-24] MEDS ORDERED: MUPIROCIN 2% OINT 22 GM (BACTROBAN) TUBE ONE (17:02)
--- NOTE | 2019-05-24 17:16 | Progress Note-Pre Operative ---
Pre-Operative Progress Note H&P Reviewed The H&P was reviewed, patient examined and no changes noted. Date Seen by Provider: May 24, 2019 Time Seen by Provider: 17:15 Date H&P Reviewed: May 24, 2019 Time H&P Reviewed: 17:15 Pre-Operative Diagnosis: Left Posterior Epistaxis EMILEE HESS MD May 24, 2019 17:16
--- NOTE | 2019-05-24 17:21 | Progress Note ---
Standard Progress Note Progress Notes/Assess & Plan Date Seen by a Provider: May 24, 2019 Time Seen by a Provider: 17:15 Progress/Assessment & Plan [id number] and Physical cc: Left Posterior Epistaxis HPI: Patient presentd actuely to office with a 1 hour duration of bleedingform both sides of the nose. Bled first on tuesday and then started again this pm while at [employer]. Saw Dr. Butcher who then referred over. No prior history of epistaxis. Is on coumadin because of AFIB-INR 2.3. In last month was diagnosed with a brain aneurysm and now has a SLIDER ASSEMBLER shunt in as well. exam: Nose-large amoutn of bleeding seen on the left side of the nose anteriorly and posteriorl; some crossover bleeding on right side; site is posterior on left ORal Cavity-alrge amoutn of blodo in pharynx IMP: Left Posterior Epistaxis REc: Will need control in the OR. Risks and beneftis andsign risk because of aneursym discussed with family and patient. NO alternative but to do surgery. will proced directly to the OR when room available. Final Diagnosis Left Posterior Epistaxis EMILEE HESS MD May 24, 2019 17:21
[2019-05-24] MEDS ORDERED: ONDANSETRON 4 MG/2 ML (SDV) Z0FRAN ONE (17:25)
[2019-05-24] MEDS ORDERED: fentaNYL INJECTION 100 MCG/2 ML AMP ONE (17:25)
[2019-05-24] MEDS ORDERED: SUCCINYLCHOLINE INJ 100 MG/5 ML SYR ONE (17:25)
[2019-05-24] MEDS ORDERED: ETOMIDATE IV SOLN 20 MG/10 ML VIAL ONE (17:25)
[2019-05-24] MEDS ORDERED: BSS 15 ML ONE (17:31)
[2019-05-24] MEDS: LIDOCAINE/EPI 1%-1:100,000 (XYLOCAINE) 20ML ONE ×2 (17:49→23:48)
[2019-05-24 18:03] LABS: BASOPHILS % (AUTO) 0 % (0-10); EOSINOPHILS # (AUTO) 0.1 10^3/uL (0.0-0.3); EOSINOPHILS % (AUTO) 1 % (0-10); HEMATOCRIT 42 % (40-54); HEMOGLOBIN 13.6 G/DL (13.3-17.7); LYMPHOCYTES # (AUTO) 1.5 X 10^3 (1.0-4.0); LYMPHOCYTES % (AUTO) 17 % (12-44); MEAN CORPUSCULAR HEMOGLOBIN 29 PG (25-34); MEAN CORPUSCULAR HGB CONC 33 G/DL (32-36); MEAN CORPUSCULAR VOLUME 90 FL (80-99); MEAN PLATELET VOLUME 10.2 FL (7.4-10.4); MONOCYTES # (AUTO) 0.6 X 10^3 (0.0-1.0); MONOCYTES % (AUTO) 7 % (0-12); NEUTROPHILS # (AUTO) 6.4 X 10^3 (1.8-7.8); NEUTROPHILS % (AUTO) 75 % (42-75); PLATELET COUNT 244 10^3/uL (130-400); RED CELL DISTRIBUTION WIDTH 15.6 % (10.0-14.5); WHITE BLOOD COUNT 8.6 10^3/uL (4.3-11.0)
[2019-05-24] MEDS ORDERED: DEXAMETHASONE 10 MG/ML (DECADRON) 1 ML VIAL ONE (18:04)
[2019-05-24] MEDS ORDERED: SEVOFLURANE (ULTANE) 15 ML INHAL SOLN ONE (18:04)
[2019-05-24 18:11] LABS: CALCIUM 9.6 MG/DL (8.5-10.1); CREATININE SERUM 1.46 MG/DL (0.60-1.30); POTASSIUM 4.5 MMOL/L (3.6-5.0)
[2019-05-24] MEDS ORDERED: HYDROcodone/APAP 5 MG/325 MG (LORTAB) TAB PO PRN (18:30)
[2019-05-24] MEDS ORDERED: ACETAMINOPHEN 500 MG TAB (TYLENOL) PO PRN (18:30)
--- NOTE | 2019-05-24 18:30 | Progress Note-Post Operative ---
Post-Operative Progess Note Surgeon (s)/Emt I/99 (s) Surgeon EMILEE HESS MD Emt I/99 n/a Pre-Operative Diagnosis Left Posterior Epistaxis Post-Operative Diagnosis same Post-Op Procedure Note Date of Procedure: May 24, 2019 Name of Procedure Performed: Endoscpic Repair of Left Posterior Epistaxis Description & Findings Description and Findings: n/a Anesthesia Type get Estimated Blood Loss minimal Packing surgicel and two bernardo packs left side of nose Specimen(s) collected/removed none EMILEE HESS MD May 24, 2019 18:30
[2019-05-24] MEDS: PHENYLEPHRINE 0.5% NASAL SPR (NEO-SYNEPHRINE) REG PRN ×2 (18:50→19:15)
[2019-05-24] MEDS ORDERED: ONDANSETRON 4 MG/2 ML (SDV) Z0FRAN IVP PRN (19:00)
[2019-05-24] MEDS ORDERED: morphine INJ 10 MG/ML 1ML (SYR OR VIAL) IVP ONE (19:00)
[2019-05-24] MEDS ORDERED: MEPERIDINE (DEMEROL) INJ 50 MG/ML IVP ONE (19:00)
[2019-05-24] MEDS ORDERED: THROMBIN SPRAY KIT 5,000 UNIT VIAL TP ONE (20:30)
[2019-05-24] MEDS ORDERED: hydrALAZINE (APESOLINE) 20 MG/ML VIAL ONE (20:39)
[2019-05-24] MEDS ORDERED: hydrALAZINE (APESOLINE) 20 MG/ML VIAL IV PRN ×2 (20:45→22:30)
--- NOTE | 2019-05-24 21:30 | NUR ---
THIS RN ACCEPTED CARE FROM DEAN RN AT THIS TIME. SEE INTERVENTIONS FOR ASSESSMENT AND VITALS.
[2019-05-24] MEDS ORDERED: WATER (STERILE) FOR INJECTION 10 ML ONE (23:10)
[2019-05-24] MEDS ORDERED: D5 1/2 NS W/KCL 20 MEQ/L 1,000 ML IV ONE (23:10)
[2019-05-24] MEDS ORDERED: ceFAZolin INJECTION 1,000 MG ONE (23:10)
[2019-05-24] MEDS: ceFAZolin INJECTION 1,000 MG in WATER (STERILE) FOR INJECTION 10 ML IV SCH (23:22)
[2019-05-24] MEDS: D5 1/2 NS W/KCL 20 MEQ/L 1,000 ML IV SCH (23:47)
[2019-05-25] VITALS (7 sets, daily range): BP systolic 131–167; BP diastolic 76–92
--- OUTSIDE RECORDS SUMMARY | 2019-05-25 00:56 | XMS REPORT | Encounter Summary ---
Author Author [facility] Organization [facility] Address Unknown Phone Unavailable Care Team Providers Care Rivet Spinner Name Role Phone Michael Velasquez MD Unavailable Lesley Butcher MD PCP Reason for Referral * Radiology Services (Routine) Referred By Contact Referred To Contact Status Reason Specialty Diagnoses / Procedures Ton Weber MD [address] [employer] [facility] [address] [place] [address] New Request Radiology Diagnoses Obstructive hydrocephalus Frequent falls P rocedures CT HEAD WO CONTRAST Encounter Details Care Team Description Date Type Department Ton Weber MD [address] [facility] [address] [place] [address] Obstructive hydrocephalus (Primary Dx); Frequent falls 05/18/2019 Orders Only [facility] [address] [place] [address] Social History Date Tobacco Use Types Packs/Day Years Used Never Smoker Smokeless Tobacco: Never Used Drinks/Week oz/Week Comments Alcohol Use 1 Cans of beer 12.0 Yes Sex Assigned at Date Recorded Not on file Industry Job Start Date Occupation Not on file Not on file Not on file Travel End Travel History Travel Start No recent travel history available. documented as of this encounter Functional Status Date of Assessment Functional Status Response 03/26/2019 Does the patient have a hearing impairment: Yes documented as of this encounter Plan of Treatment Order Schedule Name Type Priority Associated Diagnoses Expected: 05/18/2019 (Approximate), Expires: 05/18/2020 CT HEAD WO CONTRAST Imaging Routine Obstructive hydrocephalus Frequent falls documented as of this encounter Visit Diagnoses Diagnosis Obstructive hydrocephalus - Primary Frequent falls Personal history of fall documented in this encounter
--- OUTSIDE RECORDS SUMMARY | 2019-05-25 00:56 | XMS REPORT | Encounter Summary ---
Author Author [facility] Organization [facility] Address Unknown Phone Unavailable Care Team Providers Care Property Clerk Name Role Phone Michael Velasquez MD Unavailable Lesley Butcher MD PCP Reason for Referral * Radiology Services (Routine) Referred By Contact Referred To Contact Status Reason Specialty Diagnoses / Procedures Ton Weber MD [address] [facility] [place] [address]vl [address] [place] [address] [address] No Auth Needed Radiology Diagnoses NPH (normal pressure hydrocephalus) Altered mental status, unspecified altered mental status type P rocedures CT HEAD WO CONTRAST Reason for Visit * Reason Comments Post Operative Visit Encounter Details Care Team Description Date Type Department Ton Weber MD [address] [facility] Lvl [address] [place] [address] [phone] NPH (normal pressure hydrocephalus) (Primary Dx); Altered mental status, unspecified altered mental status type 05/09/2019 Office Visit [facility] [address] [place] [id number] Social History Date Tobacco Use Types Packs/Day [...] history available. documented as of this encounter Last Filed Vital Signs Reading Time Taken Comments Vital Sign 110/77 05/09/2019 9:46 AM CDT Blood Pressure 71 05/09/2019 9:46 AM CDT Pulse - - Temperature - - Respiratory Rate - - Oxygen Saturation - - Inhaled Oxygen Concentration 92.5 kg (204 lb) 05/09/2019 9:46 AM CDT Weight 182.9 cm (6') 05/09/2019 9:46 AM CDT Height 27.67 05/09/2019 9:46 AM CDT Body Mass Index documented in this encounter Functional Status Date of Assessment Functional Status Response 03/26/2019 Does the patient have a hearing impairment: Yes documented as of this encounter Progress Notes * Ton Weber MD - 05/09/2019 9:45 AM CDT Enlarging, giant fusiform dolichoectactic VB aneurysm, 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 Shunt was placed. Per patient and family, shunt has had clearly positive impact. Patient more aler t, interactive, engaged, bright, focused. Awareness, cognition, memory, all impr eladio. Gait had improved substantially from shuffling to lifting feet with longer strides. They state his level of function is better than it has been in nearly a year. In the past week, there has been some regression from the peak of post-shunt lisa rologic function. He experienced his first fall since the shunt placement and me tammy and awareness have not been quite as sharp. This level of function is still well beyond his pre-shunt condition. He does not complain of headaches. We obtained a CT scan. The ventricles are decompressed, now representing a kumar l size. Therefore, dialing the shunt may not have an additional benefit, and it' s possible to develop consequences related to overdrainage. Following a discussi on about risks and benefits, we decided to conservatively dial the shunt down on e setting, from 5 to 4. I will see the patient in 1 month. His function at that time will be considered his baseline going forward. At that time, we will discuss if the quality of life is at a place where consideration for aneurysm treatment might be appropriate. Please feel free to contact me with any concern regarding the neurosurgical saad gement of this patient. Dictated but not read. I spent 30 minutes on the care of this patient, over half in direct consultation . * Glenna Navarro - 05/09/2019 9:45 AM CDT Estrada returns to the clinic for a post operative FUV. No new imaging was ordere d for today's exam but he did have a repeat CT on 04/12/19. He is s/p Left ventri culoperitoneal shunt placement (Codman Certas Set at 5) on 03/29/2019. Estrada was last seen in the clinic on 04/13/19 by Kelley Jeong APRN, for wound check and suture removal. Estrada reports he is feeling quite well and has no specific conc erns. documented in this encounter Plan of Treatment Not on filedocumented as of this encounter Results * CT HEAD WO CONTRAST (05/09/2019 11:08 AM CDT) Specimen Impressions Performed At 1. Unchanged left frontal approach POSTAL TRANSPORTATION CLERK shunt position with interval decrease in [facility] ventriculomegaly. 2. Mild white matter hypodensities most likely secondary to chronic microvascular ischemic changes. 3. Unchanged basilar artery fusiform aneurysm. Approved by Farooq Preciado M.D. on 05/09/2019 11:20 AM By my electronic signature, I attest that I have personally reviewed the images for this examination and formulated the interpretations and opinions expressed in this report Finalized by JAMES DEVI M.D. on 05/09/2019 11:49 AM. Dictated by Farooq Preciado M.D. on 05/09/2019 11:08 AM. Narrative Performed At NONCONTRAST CT HEAD [facility] Clinical Indication:Male,84 years old. Altered mental status, NPH. Technique: Multiple contiguous axial images were obtained of the brain without intravenous contrast. IV contrast: None Comparison: CT head without contrast from April 12, 2019. FINDINGS: Mild cerebral and cerebellar volume loss. Mild patchy supratentorial white matter hypodensities. The left frontal approach POSTAL TRANSPORTATION CLERK shunt catheter remains in similar position within the left lateral ventricle. There has been interval decrease in ventriculomegaly. Unchanged appearance of the basilar artery fusiform aneurysm with unchanged mass effect on the brainstem. Extensive calcification of the bilateral intracranial vertebral arteries. There is no midline shift or herniation. The negro white matter interfaces are otherwise maintained. The basal cisterns are patent. There is no evidence of acute intracranial hemorrhage or extra-axial fluid collection. Redemonstration of right cochlear implant. Procedure Note Interface, Radiant Results - 05/09/2019 11:[address] HEAD Clinical Indication: Male, 84 years old. Altered mental status, NPH. Technique: Multiple contiguous axial images were obtained of the brain without intravenous contrast. IV contrast: None Comparison: CT head without contrast from April 12, 2019. FINDINGS: Mild cerebral and cerebellar volume loss. Mild patchy supratentorial white matter hypodensities. The left frontal approach POSTAL TRANSPORTATION CLERK shunt catheter remains in similar position within the left lateral ventricle. There has been interval decrease in ventriculomegaly. Unchanged appearance of the basilar artery fusiform aneurysm with unchanged mass effect on the brainstem. Extensive calcification of the bilateral intracranial vertebral arteries. There is no midline shift or herniation. The negro white matter interfaces are otherwise maintained. The basal cisterns are patent. There is no evidence of acute intracranial hemorrhage or extra-axial fluid collection. Redemonstration of right cochlear implant. IMPRESSION 1. Unchanged left frontal approach POSTAL TRANSPORTATION CLERK shunt position with interval decrease in ventriculomegaly. 2. Mild white matter hypodensities most likely secondary to chronic microvascular ischemic changes. 3. Unchanged basilar artery fusiform aneurysm. Approved by Farooq Preciado M.D. on 05/09/2019 11:20 AM By my electronic signature, I attest that I have personally reviewed the images for this examination and formulated the interpretations and opinions expressed in this report Finalized by JAMES DEVI M.D. on 05/09/2019 11:49 AM. Dictated by Farooq Preciado M.D. on 05/09/2019 11:08 AM. Performing Organization Address City/State/Zipcode Phone Number [facility] documented in this encounter Visit Diagnoses Diagnosis NPH (normal pressure hydrocephalus) - Primary Idiopathic normal pressure hydrocephalus (INPH) Altered mental status, unspecified altered mental status type documented in this encounter
--- OUTSIDE RECORDS SUMMARY | 2019-05-25 00:56 | XMS REPORT | Encounter Summary ---
Author Author [facility] Organization [facility] Address Unknown Phone Unavailable Care Team Providers Care Investment Representative Name Role Phone Michael Velasquez MD Unavailable Lesley Butcher MD PCP Reason for Visit * Reason Comments Medical Question Encounter Details Care Team Description Date Type Department Ton Weber MD [address] [facility] Lvl [address] [place] [address] Medical Question 05/16/2019 Telephone [facility] [address] [place] [address] Social History Date Tobacco Use [...] impairment: Yes documented as of this encounter Miscellaneous Notes * Telephone Encounter - Glenna Navarro - 05/16/2019 10:14 AM CDT Pt's daughter, Dori, called and left a voicemail stating that her dad is falli ng a lot and having more problems with memory. Attempted to return her call. No answer. Left voicemail message requesting a ret urn call. documented in this encounter Plan of Treatment Not on filedocumented as of this encounter Visit Diagnoses Not on filedocumented in this encounter
--- OUTSIDE RECORDS SUMMARY | 2019-05-25 00:56 | XMS REPORT | Encounter Summary ---
Author Author [facility] Organization [facility] Address Unknown Phone Unavailable Care Team Providers Care Table Inspector Name Role Phone Michael Velasquez MD Unavailable Lesley Butcher MD PCP Reason for Referral * Radiology Services (Routine) Referred By Contact Referred To Contact Status Reason Specialty Diagnoses / Procedures Ton Weber MD [address] [employer] [facility] [address] [place] [address] [place] [address] No Auth Needed Radiology Diagnoses NPH (normal pressure hydrocephalus) Altered mental status, unspecified altered mental status type P rocedures CT HEAD WO CONTRAST * Radiology Services (Routine) Referred By Contact Referred To Contact Status Reason Specialty Diagnoses / Procedures Ton Weber MD [address] [facility] [employer] [facility] [address]vl [address] [place] [address] [place] [id number] No Auth Needed Radiology Diagnoses NPH (normal pressure hydrocephalus) Altered mental status, unspecified altered mental status type P rocedures CT HEAD WO CONTRAST Reason for Visit * Radiology Services (Routine) Referred By Contact Referred To Contact Status Reason Specialty Diagnoses / Procedures Ton Weber MD [address] [facility] [address] [place] [address] [address] No Auth Needed Radiology Diagnoses NPH (normal pressure hydrocephalus) Altered mental status, unspecified altered mental status type P rocedures CT HEAD WO CONTRAST Encounter Details Care Team Description Date Type Department Ton Weber MD [address] [facility] [address]vl [address] [place] [address] [phone] 05/09/2019 [facility] [address] [address] Social History Date Tobacco Use Types Packs/Day [...] impairment: Yes documented as of this encounter Medications at Time of Discharge Start Date End Date Medication Sig Dispensed Refills 04/04/2019 acetaminophen (TYLENOL) Take two 0 325 mg tablet tablets by mouth every 6 hours as needed. allopurinol (ZYLOPRIM) Take 100 mg 0 100 mg tablet by mouth daily. Take with food. amiodarone (CORDARONE) Take 200 mg 0 200 mg tablet by mouth three times daily. Take with food. 04/04/2019 aspirin 325 mg tablet Take one 90 tablet 3 tablet by mouth daily. Take with food. atorvastatin (LIPITOR) 80 Take 80 mg by 0 mg tablet mouth at bedtime daily. 04/04/2019 cholecalciferol (VITAMIN Take one 90 tablet 0 D) 1,000 units tablet tablet by mouth daily. cholecalciferol(+) Take 5,000 0 (VITAMIN D-3) 5,000 unit Units by tablet mouth twice daily. citalopram (CELEXA) 40 mg Take 40 mg by 0 tablet mouth daily. docusate (COLACE) 100 mg Take 100 mg 0 capsule by mouth every other day as needed for Constipation. fexofenadine(+) (RACHEL) Take 180 mg 0 180 mg tablet by mouth daily. fluticasone propionate Apply 1 spray 0 (FLONASE) 50 to each mcg/actuation nasal spray nostril as directed daily. Shake bottle gently before using. loratadine (CLARITIN) 10 Take 10 mg by 0 mg tablet mouth every morning. losartan (COZAAR) 50 mg Take 50 mg by 0 tablet mouth daily. nitroglycerin (NITROSTAT) Place 0.4 mg 0 0.4 mg tablet under tongue as Needed for Chest Pain. Max of 3 tablets, call 911. pantoprazole DR Take 40 mg by 0 (PROTONIX) 40 mg tablet mouth daily. polyvinyl Apply 1 drop 0 alcohol/povidone(+) to both eyes (REFRESH) 1.4/0.6 % daily as ophthalmic solution needed. rOPINIRole (REQUIP) 0.25 Take 0.25 mg 0 mg tablet by mouth at bedtime daily. 04/04/2019 spironolactone Take one 90 tablet 3 (ALDACTONE) 25 mg tablet tablet by mouth daily. Take with food. tamsulosin (FLOMAX) 0.4 Take 0.4 mg 0 mg capsule by mouth daily. Do not crush, chew or open capsules. Take 30 minutes following the same meal each day. vitamins, multi Take 1 tablet 0 w/minerals 9 mg iron-400 by mouth mcg tab daily. 04/04/2019 warfarin (COUMADIN) 3 mg Take three 90 tablet 3 tablet tablets by mouth daily. Do not resume until discussed with Dr. Weber at your follow up appointment documented as of this encounter Plan of Treatment Not on filedocumented as of this encounter Procedures Comments Procedure Name Priority Date/Time Associated Diagnosis CT HEAD WO CONTRAST Routine 05/09/2019 NPH (normal pressure 11:08 AM CDT hydrocephalus) Altered mental status, unspecified altered mental status type documented in this encounter Results * CT HEAD WO CONTRAST (05/09/2019 11:08 AM CDT) Specimen Impressions Performed At 1. Unchanged left frontal approach PHLEBOTOMIST shunt position with interval decrease in [facility] [...] white matter hypodensities. The left frontal approach PHLEBOTOMIST shunt catheter remains in similar position within [...] white matter hypodensities. The left frontal approach PHLEBOTOMIST shunt catheter remains in similar position within [...] implant. IMPRESSION 1. Unchanged left frontal approach PHLEBOTOMIST shunt position with interval decrease in ventriculomegaly. [...] Visit Diagnoses Diagnosis NPH (normal pressure hydrocephalus) Idiopathic normal pressure hydrocephalus (INPH) Altered mental status, unspecified altered mental status type documented in this encounter
--- OUTSIDE RECORDS SUMMARY | 2019-05-25 00:56 | XMS REPORT | Encounter Summary ---
Author Author [facility] Organization [facility] Address Unknown Phone Unavailable Care Team Providers Care Customizer Name Role Phone Michael Velasquez MD Unavailable Lesley Butcher MD PCP Reason for Referral * Radiology Services (Routine) Referred By Contact Referred To Contact Status Reason Specialty Diagnoses / Procedures Ton Weber MD [address] [facility] [address]vl [address] [place] [address] [place] [address] No Auth Needed Radiology Diagnoses NPH (normal pressure hydrocephalus) S/P DEMURRAGE WORKER shunt P rocedures CT HEAD WO CONTRAST * Radiology Services (Routine) Referred By Contact Referred To Contact Status Reason Specialty Diagnoses / Procedures Ton Weber MD [address] [facility] [address]vl [address] [place] [address] [place] [address] No Auth Needed Radiology Diagnoses NPH (normal pressure hydrocephalus) S/P DEMURRAGE WORKER shunt P rocedures CT HEAD WO CONTRAST Reason for Visit * Radiology Services (Routine) Referred By Contact Referred To Contact Status Reason Specialty Diagnoses / Procedures Ton Weber MD [address] [facility] [address]vl [address] [place] [address] [place] [address] No Auth Needed Radiology Diagnoses NPH (normal pressure hydrocephalus) S/P DEMURRAGE WORKER shunt P rocedures CT HEAD WO CONTRAST Encounter Details Care Team Description Date Type Department Ton Weber MD [address] [facility] [address]vl [address] [place] [address] [phone] 04/12/2019 [facility] [address] [place] [address] Social History Date Tobacco Use Types Packs/Day [...] 40 mg by 0 tablet mouth daily. fexofenadine(+) (RACHEL) Take 180 mg 0 180 [...] Dr. Weber at your follow up appointment 05/09/2019 bisacodyl (DULCOLAX) 10 Insert or 0 mg rectal suppository Apply 10 mg to rectal area as directed three times daily. 05/09/2019 enoxaparin (LOVENOX) 100 Inject 40 0 mg syrg mg/kg under the skin daily. 04/04/2019 05/09/2019 heparin (porcine) PF Inject 0.5 mL 0 5,000units/0.5mL under the injection syringe skin every 8 hours. May discontinue once mobilizing well 05/09/2019 lactulose(+) (KRISTALOSE) Take 10 g by 0 10 gram packet mouth twice daily as needed. 05/09/2019 melatonin 3 mg tab Take 3 mg by 0 mouth at bedtime daily. 05/09/2019 ondansetron (ZOFRAN ODT) Dissolve 4 mg 0 4 mg rapid dissolve by mouth tablet every 6 hours as needed for Nausea or Vomiting. Place on tongue to disolve. 05/09/2019 sennosides (SENNA PO) Take 2 0 tablets by mouth three times daily. documented as of this encounter Plan of Treatment Not on filedocumented as of this encounter Procedures Comments Procedure Name Priority Date/Time Associated Diagnosis CT HEAD WO CONTRAST Routine 04/12/2019 NPH (normal pressure 10:33 AM CDT hydrocephalus) S/P DEMURRAGE WORKER shunt documented in this encounter Results * CT HEAD WO CONTRAST (04/12/2019 10:33 AM CDT) Specimen Impressions Performed At 1. Stable left frontal approach shunt position. Slight decrease in [facility] ventriculomegaly. 2. Resolution of postoperative pneumocephalus. No acute hemorrhage. 3. 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 on 04/12/2019 11:06 AM. Dictated by Scot Rosen M.D. on 04/12/2019 10:54 AM. Narrative Performed At CT head [facility] History: Normal pressure hydrocephalus. Status post DEMURRAGE WORKER shunt placement. Technique: Multiple contiguous axial images were obtained through the head without contrast. Coronal reconstructions were performed from the source data. Findings: Comparison is made with previous CT from March 29 and more recent MRI from April 03, 2019. There has been resolution of postoperative pneumocephalus. There is a left frontal approach shunt with the tip in the left lateral ventricle. Ventriculomegaly is slightly improved. There is no acute hemorrhage or extra-axial fluid collection. Fusiform aneurysmal dilatation of the basilar artery is stable. Patchy areas of low-attenuation throughout the hemispheric white matter are unchanged. A right cochlear implant is unchanged. Paranasal sinuses and mastoid air cells are clear. Procedure Note Interface, Radiant Results - 04/12/2019 11:[address] head History: Normal pressure hydrocephalus. Status post DEMURRAGE WORKER shunt placement. Technique: Multiple contiguous axial images were obtained through the head without contrast. Coronal reconstructions were performed from the source data. Findings: Comparison is made with previous CT from March 29 and more recent MRI from April 03, 2019. There has been resolution of postoperative pneumocephalus. There is a left frontal approach shunt with the tip in the left lateral ventricle. Ventriculomegaly is slightly improved. There is no acute hemorrhage or extra-axial fluid collection. Fusiform aneurysmal dilatation of the basilar artery is stable. Patchy areas of low-attenuation throughout the hemispheric white matter are unchanged. A right cochlear implant is unchanged. Paranasal sinuses and mastoid air cells are clear. IMPRESSION 1. Stable left frontal approach shunt position. Slight decrease in ventriculomegaly. 2. Resolution of postoperative pneumocephalus. No acute hemorrhage. 3. 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 on 04/12/2019 11:06 AM. Dictated by Scot Rosen M.D. on 04/12/2019 10:54 AM. Performing Organization Address City/State/Zipcode Phone Number [facility] documented in this encounter Visit Diagnoses Diagnosis NPH (normal pressure hydrocephalus) Idiopathic normal pressure hydrocephalus (INPH) S/P DEMURRAGE WORKER shunt Presence of cerebrospinal fluid drainage device documented in this encounter
--- OUTSIDE RECORDS SUMMARY | 2019-05-25 00:56 | XMS REPORT | Clinical Summary ---
Author Author [facility] Organization [facility] Address Unknown Phone Unavailable Care Team Providers Care Skin Carver Name Role Phone Michael Velasquez MD Unavailable Lesley Butcher MD PCP Source Comments Some departments are not documenting in the electronic medical record. If you d o not see the information that you expected, contact Release of Information in [facility] Information Management department at [phone] for further assistan ce in locating additional records.[facility] Allergies Comments Active Allergy Reactions Severity Noted Date Iodinated Contrast- Oral ITCHING Low 03/26/2019 And Iv Dye Medications End Date Status Medication Sig Dispensed Refills Start Date Active tamsulosin (FLOMAX) 0.4 Take 0.4 mg 0 mg capsule by mouth daily. Do not crush, chew or open capsules. Take 30 minutes following the same meal each day. Active allopurinol (ZYLOPRIM) Take 100 mg 0 100 mg tablet by mouth daily. Take with food. Active losartan (COZAAR) 50 mg Take 50 mg by 0 tablet mouth daily. Active amiodarone (CORDARONE) Take 200 mg 0 200 mg tablet by mouth three times daily. Take with food. Active pantoprazole DR Take 40 mg by 0 (PROTONIX) 40 mg tablet mouth daily. Active rOPINIRole (REQUIP) 0.25 Take 0.25 mg 0 mg tablet by mouth at bedtime daily. Active atorvastatin (LIPITOR) 80 Take 80 mg by 0 mg tablet mouth at bedtime daily. Active cholecalciferol(+) Take 5,000 0 (VITAMIN D-3) 5,000 unit Units by tablet mouth twice daily. Active citalopram (CELEXA) 40 mg Take 40 mg by 0 tablet mouth daily. Active vitamins, multi Take 1 tablet 0 w/minerals 9 mg iron-400 by mouth mcg tab daily. Active fluticasone propionate Apply 1 spray 0 (FLONASE) 50 to each mcg/actuation nasal spray nostril as directed daily. Shake bottle gently before using. Active fexofenadine(+) (RACHEL) Take 180 mg 0 180 mg tablet by mouth daily. Active polyvinyl Apply 1 drop 0 alcohol/povidone(+) to both eyes (REFRESH) 1.4/0.6 % daily as ophthalmic solution needed. Active warfarin (COUMADIN) 3 mg Take three 90 tablet 3 tablet tablets by 9 mouth daily. Do not resume until discussed with Dr. Weber at your follow up appointment Active aspirin 325 mg tablet Take one 90 tablet 3 tablet by 9 mouth daily. Take with food. Active acetaminophen (TYLENOL) Take two 0 325 mg tablet tablets by 9 mouth every 6 hours as needed. Active cholecalciferol (VITAMIN Take one 90 tablet 0 D) 1,000 units tablet tablet by 9 mouth daily. Active spironolactone Take one 90 tablet 3 (ALDACTONE) 25 mg tablet tablet by 9 mouth daily. Take with food. Active loratadine (CLARITIN) 10 Take 10 mg by 0 mg tablet mouth every morning. Active nitroglycerin (NITROSTAT) Place 0.4 mg 0 0.4 mg tablet under tongue as Needed for Chest Pain. Max of 3 tablets, call 911. Active docusate (COLACE) 100 mg Take 100 mg 0 capsule by mouth every other day as needed for Constipation. 05/09/2019 Discontinued heparin (porcine) PF Inject 0.5 mL 0 5,000units/0.5mL under the 9 injection syringe skin every 8 hours. May discontinue once mobilizing well 05/09/2019 Discontinued sennosides (SENNA PO) Take 2 0 tablets by mouth three times daily. 05/09/2019 Discontinued enoxaparin (LOVENOX) 100 Inject 40 0 mg syrg mg/kg under the skin daily. 05/09/2019 Discontinued lactulose(+) (KRISTALOSE) Take 10 g by 0 10 gram packet mouth twice daily as needed. 05/09/2019 Discontinued melatonin 3 mg tab Take 3 mg by 0 mouth at bedtime daily. 05/09/2019 Discontinued ondansetron (ZOFRAN ODT) Dissolve 4 mg 0 4 mg rapid dissolve by mouth tablet every 6 hours as needed for Nausea or Vomiting. Place on tongue to disolve. 05/09/2019 Discontinued bisacodyl (DULCOLAX) 10 Insert or 0 mg rectal suppository Apply 10 mg to rectal area as directed three times daily. 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 Hearing loss, bilateral 11/04/2017 Overview: Added automatically from request for surgery [id number] Encounters Care Team Description Date Type Specialty Ton Weber MD Results 05/22/2019 Telephone Neurosurgery Ton Weber MD Obstructive hydrocephalus (Primary Dx); Frequent falls 05/18/2019 Orders Only Neurosurgery Ton Weber MD Medical Question 05/16/2019 Telephone Neurosurgery Ton Weber MD 05/09/2019 Hospital Radiology Encounter Ton Weber MD NPH (normal pressure hydrocephalus) (Primary Dx); Altered mental status, unspecified altered mental status type 05/09/2019 Office Visit Neurosurgery Kelley Jeong APRN-FISHER POT Visit for wound check (Primary Dx) 04/12/2019 Office Visit Neurosurgery Ton Weber MD 04/12/2019 Hospital Radiology Encounter Michael Vann CRNA 04/02/2019 Anesthesia Radiology Event Ton Weber MD NPH (normal pressure hydrocephalus) (Primary Dx); S/P FOOD SERVICE CASHIER shunt 03/30/2019 Orders Only Neurosurgery Juan J Reilly MD 03/29/2019 Anesthesia Event Ton Weber MD CREATION SHUNT - VENTRICULO-PERITONEAL 03/29/2019 Surgery Ton Weber MD Aneurysm (HCC) 03/26/2019 Hospital - Encounter 04/04/2019 Ton Weber MD NPH (normal pressure hydrocephalus) (Primary Dx); Intracranial aneurysm 03/26/2019 Office Visit Neurosurgery from Last 3 Months Social History Date [...] travel history available. Last Filed Vital Signs Reading Time Taken Comments Vital Sign 110/77 05/09/2019 9:46 AM CDT Blood Pressure 71 05/09/2019 9:46 AM CDT Pulse 37.2 C (98.9 F) 04/12/2019 1:00 PM CDT Temperature - - Respiratory Rate 95% 04/04/2019 7:36 AM CDT Oxygen Saturation - - Inhaled Oxygen Concentration 92.5 kg (204 lb) 05/09/2019 9:46 AM CDT Weight 182.9 cm (6') 05/09/2019 9:46 AM CDT Height 27.67 05/09/2019 9:46 AM CDT Body Mass Index Plan of Treatment Health Maintenance Due Date [...] Type Area Manufactur er 11/16/2020 CI-1600-04 / [id number] / [id number] Implant Cochlear [facility] Right: Ear UNIDENTIFI [employer] [place] Electrode Sterile ED [facility] [place] - [id number] Implanted: Qty: 1 on 02/24/2018 by Yung Moreno MD at [facility] Description: [facility] approved for 1.5T with the magnet in place - an MRI Antenna Coil Cover and a simple head-bandage procedure is all that is required, no surgical procedure is necessary [facility] approved for 3T MRI with the magnet removed - the magn et can be taken out easily and replaced through a small incision, without the inconvenience of removing the implant 2020 [id number] / [id number] / [id number] Valve Shunt Certas Plus Siphonguard Right: Brain UNIDENTIFI Inline Catheter - [id number] ED MFG Implanted: Qty: 1 on 03/29/2019 by Mario Pereyra MD at [facility] [id number] 11/16/2019 [id number] / [id number] / [id number] Device Closure 70cm 6fr Angio-Seal Right: Femoral TERUMO Vip .035in Vascular - Sna Artery INTERVENTI Implanted: Qty: 1 on 03/30/2019 by Ton Blank MD at [facility] Procedures Comments Procedure Name Priority Date/Time Associated Diagnosis CT HEAD WO CONTRAST Routine 05/09/2019 NPH (normal pressure 11:08 AM CDT hydrocephalus) Altered mental status, unspecified altered mental status type CT HEAD WO CONTRAST Routine 04/12/2019 NPH (normal pressure 10:33 AM CDT hydrocephalus) S/P FOOD SERVICE CASHIER shunt MRA HEAD WO/W CONTRAST Routine 04/03/2019 10:29 AM CDT MRI HEAD WO CONTRAST Routine 04/03/2019 9:59 AM CDT IR ARTERIOGRAM NEURO Routine 04/02/2019 12:09 PM CDT TYPE & CROSSMATCH STAT 04/02/2019 10:46 AM CDT CBC AND DIFF Routine 04/01/2019 4:28 AM CDT BASIC METABOLIC PANEL Routine 04/01/2019 4:28 AM CDT CBC AND DIFF Routine 03/31/2019 4:00 AM CDT BASIC METABOLIC PANEL Routine 03/31/2019 4:00 AM CDT IR ARTERIOGRAM NEURO Routine 03/30/2019 4:26 PM CDT CBC AND DIFF Routine 03/30/2019 4:25 AM CDT BASIC METABOLIC PANEL Routine 03/30/2019 4:25 AM CDT C SPINE 3 VIEWS OR LESS Routine 03/29/2019 10:48 PM CDT SKULL LIMITED < 4 VIEWS Routine 03/29/2019 10:48 PM CDT CHEST 2 VIEWS Routine 03/29/2019 10:48 PM CDT ABDOMEN AP & LAT Routine 03/29/2019 10:[address] HEAD WO CONTRAST Routine 03/29/2019 5:34 PM CDT POC GLUCOSE 03/29/2019 4:43 PM CDT CREATION SHUNT - 03/29/2019 NPH (normal pressure VENTRICULO-PERITONEAL 12:13 PM CDT hydrocephalus) PROTIME INR (PT) Routine 03/29/2019 7:28 AM CDT CBC AND DIFF Routine 03/29/2019 4:04 AM CDT BASIC METABOLIC PANEL Routine 03/29/2019 4:04 AM CDT BLOOD TYPE CONFIRMATION - Routine 03/28/2019 ORDER ONLY IF REQUESTED 8:48 PM CDT BY LAB CONSULT IV THERAPY TEAM STAT 03/28/2019 7:49 PM CDT TYPE & CROSSMATCH Routine 03/28/2019 7:25 PM CDT CONSULT IV THERAPY TEAM Routine 03/28/2019 6:46 PM CDT CBC AND DIFF Routine 03/28/2019 4:20 AM CDT BASIC METABOLIC PANEL Routine 03/28/2019 4:20 AM CDT 2-D + DOPPLER Routine 03/27/2019 ECHOCARDIOGRAM 10:35 AM CDT PROTIME INR (PT) Routine 03/27/2019 7:44 AM CDT BASIC METABOLIC PANEL Routine 03/27/2019 3:47 AM CDT CBC AND DIFF Routine 03/27/2019 3:47 AM CDT BASIC METABOLIC PANEL Routine 03/26/2019 1:12 PM CDT PTT (APTT) Routine 03/26/2019 1:12 PM CDT PROTIME INR (PT) Routine 03/26/2019 1:12 PM CDT CBC AND DIFF Routine 03/26/2019 1:12 PM CDT ECG 12-LEAD Routine 03/26/2019 12:05 PM CDT TELEMETRY STRIPS-SCAN 03/26/2019 12:00 AM CDT ECG-SCAN 03/26/2019 12:00 AM CDT from Last 3 Months Results * CT HEAD WO CONTRAST (05/09/2019 11:08 AM CDT) Only the most recent of 3 results within the time period is included. Specimen Impressions Performed At 1. Unchanged left frontal approach FOOD SERVICE CASHIER shunt position with interval decrease in [facility] [...] white matter hypodensities. The left frontal approach FOOD SERVICE CASHIER shunt catheter remains in similar position within [...] white matter hypodensities. The left frontal approach FOOD SERVICE CASHIER shunt catheter remains in similar position within [...] implant. IMPRESSION 1. Unchanged left frontal approach FOOD SERVICE CASHIER shunt position with interval decrease in ventriculomegaly. [...] Address City/State/Zipcode Phone Number [facility] RESULTS * MRA HEAD WO/W CONTRAST (04/03/2019 10:29 AM CDT) Specimen Impressions Performed At MRI brain: [facility] RES[facility] 1.Limited by hardware associated susceptibility and image degradation. Indwelling left frontal approach ventricular shunt catheter in stable position with improving supratentorial hydrocephalus. 2.Persistent supratentorial white matter FLAIR hyperintensities, likely due to chronic microvascular ischemia and superimposed transependymal edema. 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 2.Patent central intracranial vasculature without stenosis or occlusion. Approved by Martin Craft DO on 04/03/2019 10:57 AM By my electronic signature, I attest that I have personally reviewed the images for this examination and formulated the interpretations and opinions expressed in this report Finalized by Scot Rosen M.D. on 04/03/2019 12:53 PM. Dictated by Martin Craft DO on 04/03/2019 10:11 AM. Narrative Performed At EXAM: MRI AND MRA BRAIN [facility] RESULTS HISTORY: Evaluation of the basilar aneurysm. TECHNIQUE: Multiplanar and multisequence MR imaging of the head was performed. 3D ckow-fc-cdkbntlialoz of the [place] was performed prior to and following the administration of MultiHance. MRA maximum intensity projection images were obtained of the brain with image postprocessing. COMPARISON: CT head dated March 29, 2019. Cerebral angiography dated April 02, 2019. FINDINGS: Dr. Scot Rosen M.D. has personally reviewed these images and formulated the interpretations and opinions expressed in this report. Head wrap was placed over the indwelling right-sided cochlear implant stretch press operator/stimulator and implanted fixation magnetic by Dr. Whiting from [facility]. Transmit/receive coil was utilized with normal RUDDY. MRI brain: Examination is limited (specifically the diffusion and gradient sequences) by hardware associated susceptibility and image degradation from the right-sided cochlear implant. Left frontal approach ventricular shunt catheter terminates in the body of the left lateral ventricle. Near-complete resolution of postoperative pneumocephalus. There is been a slight further reduction in size of the supratentorial ventricles with persistent mild transependymal edema. Additional patchy supratentorial white matter T2 hyperintensities are likely on the basis of chronic microvessel ischemic changes. No midline shift or herniation. 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 The distal internal carotid, vertebral, and basilar arteries are patent without focal narrowing or occlusion. The central anterior, middle, and posterior cerebral arteries are patent without focal narrowing. No arteriovenous malformation is identified. Procedure Note Interface, Radiant Results - 04/03/2019 12:56 PM CDT EXAM: MRI AND MRA BRAIN HISTORY: Evaluation of the basilar aneurysm. TECHNIQUE: Multiplanar and multisequence MR imaging of the head was performed. 3D onpd-ih-iulmzj images of the [place] was performed prior to and following the administration of MultiHance. MRA maximum intensity projection images were obtained of the brain with image postprocessing. COMPARISON: CT head dated March 29, 2019. Cerebral angiography dated April 02, 2019. FINDINGS: Dr. Scot Rosen M.D. has personally reviewed these images and formulated the interpretations and opinions expressed in this report. Head wrap was placed over the indwelling right-sided cochlear implant stretch press operator/stimulator and implanted fixation magnetic by Dr. Whiting from [facility]. Transmit/receive coil was utilized with normal RUDDY. MRI brain: Examination is limited (specifically the diffusion and gradient sequences) by hardware associated susceptibility and image degradation from the right-sided cochlear implant. Left frontal approach ventricular shunt catheter terminates in the body of the left lateral ventricle. Near-complete resolution of postoperative pneumocephalus. There is been a slight further reduction in size of the supratentorial ventricles with persistent mild transependymal edema. Additional patchy supratentorial white matter T2 hyperintensities are likely on the basis of chronic microvessel ischemic changes. No midline shift or herniation. 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 The distal internal carotid, vertebral, and basilar arteries are patent without focal narrowing or occlusion. The central anterior, middle, and posterior cerebral arteries are patent without focal narrowing. No arteriovenous malformation is identified. IMPRESSION MRI brain: 1. Limited by hardware associated susceptibility and image degradation. Indwelling left frontal approach ventricular shunt catheter in stable position with improving supratentorial hydrocephalus. 2. Persistent supratentorial white matter FLAIR hyperintensities, likely due to chronic microvascular ischemia and superimposed transependymal edema. MRA brain: 1. 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 2. Patent central intracranial vasculature without stenosis or occlusion. Approved by Martin Craft DO on 04/03/2019 10:57 AM By my electronic signature, I attest that I have personally reviewed the images for this examination and formulated the interpretations and opinions expressed in this report Finalized by Scot Rosen M.D. on 04/03/2019 12:53 PM. Dictated by Martin Craft DO on 04/03/2019 10:11 AM. Performing Organization Address City/State/Zipcode Phone Number [facility] RESULTS * MRI HEAD WO CONTRAST (04/03/2019 9:59 AM CDT) Specimen Impressions Performed At MRI brain: [facility] RESULTS 1.Limited by hardware associated susceptibility and image degradation. Indwelling left frontal approach ventricular shunt catheter in stable position with improving supratentorial hydrocephalus. 2.Persistent supratentorial white matter FLAIR hyperintensities, likely due to chronic microvascular ischemia and superimposed transependymal edema. 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 2.Patent central intracranial vasculature without stenosis or occlusion. Approved by Martin Craft DO on 04/03/2019 10:57 AM By my electronic signature, I attest that I have personally reviewed the images for this examination and formulated the interpretations and opinions expressed in this report Finalized by Scot Rosen M.D. on 04/03/2019 12:53 PM. Dictated by Martin Craft DO on 04/03/2019 10:11 AM. Narrative Performed At EXAM: MRI AND MRA BRAIN [facility] RESULTS HISTORY: Evaluation of the basilar aneurysm. TECHNIQUE: Multiplanar and multisequence MR imaging of the head was performed. 3D vjgb-wk-srgnxrakvdeu of the [place] was performed prior to and following the administration of MultiHance. MRA maximum intensity projection images were obtained of the brain with image postprocessing. COMPARISON: CT head dated March 29, 2019. Cerebral angiography dated April 02, 2019. FINDINGS: Dr. Scot Rosen M.D. has personally reviewed these images and formulated the interpretations and opinions expressed in this report. Head wrap was placed over the indwelling right-sided cochlear implant stretch press operator/stimulator and implanted fixation magnetic by Dr. Whiting from [facility]NT. Transmit/receive coil was utilized with normal RUDDY. MRI brain: Examination is limited (specifically the diffusion and gradient sequences) by hardware associated susceptibility and image degradation from the right-sided cochlear implant. Left frontal approach ventricular shunt catheter terminates in the body of the left lateral ventricle. Near-complete resolution of postoperative pneumocephalus. There is been a slight further reduction in size of the supratentorial ventricles with persistent mild transependymal edema. Additional patchy supratentorial white matter T2 hyperintensities are likely on the basis of chronic microvessel ischemic changes. No midline shift or herniation. 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 The distal internal carotid, vertebral, and basilar arteries are patent without focal narrowing or occlusion. The central anterior, middle, and posterior cerebral arteries are patent without focal narrowing. No arteriovenous malformation is identified. Procedure Note Interface, Radiant Results - 04/03/2019 12:56 PM CDT EXAM: MRI AND MRA BRAIN HISTORY: Evaluation of the basilar aneurysm. TECHNIQUE: Multiplanar and multisequence MR imaging of the head was performed. 3D bjih-yl-usuhas images of the [place] was performed prior to and following the administration of MultiHance. MRA maximum intensity projection images were obtained of the brain with image postprocessing. COMPARISON: CT head dated March 29, 2019. Cerebral angiography dated April 02, 2019. FINDINGS: Dr. Scot Rosen M.D. has personally reviewed these images and formulated the interpretations and opinions expressed in this report. Head wrap was placed over the indwelling right-sided cochlear implant stretch press operator/stimulator and implanted fixation magnetic by Dr. Whiting from [facility]. Transmit/receive coil was utilized with normal RUDDY. MRI brain: Examination is limited (specifically the diffusion and gradient sequences) by hardware associated susceptibility and image degradation from the right-sided cochlear implant. Left frontal approach ventricular shunt catheter terminates in the body of the left lateral ventricle. Near-complete resolution of postoperative pneumocephalus. There is been a slight further reduction in size of the supratentorial ventricles with persistent mild transependymal edema. Additional patchy supratentorial white matter T2 hyperintensities are likely on the basis of chronic microvessel ischemic changes. No midline shift or herniation. 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 The distal internal carotid, vertebral, and basilar arteries are patent without focal narrowing or occlusion. The central anterior, middle, and posterior cerebral arteries are patent without focal narrowing. No arteriovenous malformation is identified. IMPRESSION MRI brain: 1. Limited by hardware associated susceptibility and image degradation. Indwelling left frontal approach ventricular shunt catheter in stable position with improving supratentorial hydrocephalus. 2. Persistent supratentorial white matter FLAIR hyperintensities, likely due to chronic microvascular ischemia and superimposed transependymal edema. MRA brain: 1. 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 2. Patent central intracranial vasculature without stenosis or occlusion. Approved by Martin Craft DO on 04/03/2019 10:57 AM By my electronic signature, I attest that I have personally reviewed the images for this examination and formulated the interpretations and opinions expressed in this report Finalized by Scot Rosen M.D. on 04/03/2019 12:53 PM. Dictated by Martin Craft DO on 04/03/2019 10:11 AM. Performing Organization Address City/State/Zipcode Phone Number [facility] RESULTS * IR ARTERIOGRAM NEURO (04/02/2019 12:09 PM CDT) Only the most recent of 2 results within the time period is included. Specimen Impressions Performed At 1. 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 ATTESTATION: I attest that I performed the entire procedure from beginning to end and am responsible for the image interpretations. Finalized by Ton Weber M.D. on 04/13/2019 12:27 PM. Dictated by Ton Weber M.D. on 04/13/2019 10:54 AM. Narrative Performed At CLINICAL HISTORY: Patient with a history of a giant fusiform dolichoectatic [facility] RESULTS vertebrobasilar artery aneurysm is returned the angiography suite for formal characterization. Prior study under conscious sedation was nondiagnostic due to patient's poor compliance under conscious sedation and substantial vessel tortuosity. The patient is returned to the angiography suite for transradial approach under general anesthesia. 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 None ANESTHESIA. General PROCEDURE. Ultrasound guided radial artery access Right radial artery arteriogram Right vertebral artery cervical Right vertebral artery cerebral including 3-D views Right common carotid arteriograms Right internal carotid arteriograms Left common carotid arteriograms Left internal carotid arteriograms ACCESS. Right radial artery HEMOSTASIS. Terumo TR Band PROCEDURE DETAIL. Prior to the procedure, the Barbeau test was performed on the target radial artery. The result was Barbeau A. The pulse oximetry lead remained in place on the first or second digit of the right hand for continuous monitoring throughout the procedure. The patient was brought to the angiography suite and placed supine on the table. General anesthesia was successfully performed by the anesthesia team. The right arm was positioned in modest supination, supported along the patient's right side, with the wrist in mild extension to optimize access to the radial artery. Additionally, the inguinal region was prepped and draped in the usual sterile fashion in the event that femoral access was required. The access site for the right radial artery was located by palpation approximately one finger breadth cephalad to the scaphoid process. Ultrasound of the radial artery was performed. The ultrasound demonstrates the vessel to be widely patent with diameter larger than 1.6mm. The ultrasound image is saved and stored on the PACs system. Under ultrasound guidance, the radial artery was entered with a single wall 20-gauge needle. A microwire was placed under direct fluoroscopic visualization. The Seldinger technique was used to place a Terumo 4/5-F slender sheath in the vessel. All bubbles were meticulously withdrawn and the sheath was carefully flushed and attached to continuous heparinized saline flush system. A radial artery angiogram was performed through the sheath, demonstrating an appropriate course for catheter navigation. Antispasmodic agents verapamil 2.5?mg and nitroglycerine 200?mcg were combined in a 20cc syringe. 10-15cc of blood was withdrawn into the syringe and the mixture were infused through the sheath slowly over 1-2 minutes. Heparin ~70 units/kg was administered intravenously. A 5-Ukrainian Terumo Block-2 or Block-3 diagnostic catheter was introduced through the sheath. It was navigated under direct fluoroscopic visualization over a Glidewire through the vasculature of the right upper extremity to the subclavian artery where it was meticulously flushed. The Block catheter was reformed in the aortic arch. Utilizing a combination of roadmap, guidewire and direct catheter access techniques, the Block catheter was used to perform diagnostic angiography of the above named vessels. The Terumo TR radial armband was applied and inflated and the sheath withdrawn. Patent hemostasis was then achieved by standard technique. The reverse Barbeau test was performed confirming adequate blood supply to the hand. The patient was transferred to the holding area for post-procedural management. FINDINGS: Right vertebral artery cervical. Compared to transfemoral approach, the right vertebral artery was readily accessed from right transradial approach. No significant stenosis involves the origin of the vessel. The cervical course demonstrates mild tortuosity but no associated stenosis. Right vertebral artery. Right vertebral artery demonstrates nondominant caliber. However robust opacification of the aneurysm as well as retrograde filling of the dominant caliber left vertebral artery was able to be achieved. Multiple angiographic views including 3-dimensional angiography of the aneurysm was performed. The aneurysmal segment extends from the vertebral basilar junction to the basilar terminus. The most significant involvement is in the proximal half of the basilar with the distal basilar demonstrating gradual return to near normal caliber at the level of the terminus. The proximal segment is grossly dilated on the order of 2.5 to 3 cm. The midportion of the aneurysmal segment demonstrates kinking is the most prominent dilatation applies mass effect of the lesser involvement distal segment. The basilar terminus extends well above the level of the posterior clinoid. Multiple branching vessels of the posterior circulation arise directly from the aneurysmal vessel including right AICA-PICA complex and smaller right AICA. There is no right PICA. The anterior spinal artery is seen to arise from the left vertebral artery just proximal to the aneurysmal segment. The vessels of the carotid terminus appear spared from pathology. The branching superior cerebellar and INSPECTOR REPAIRER vessels appear within normal limits. Compared to prior angiography in 2010 region is markedly increased in size. Right common carotid. Significant proximal tortuosity is identified with mild luminal irregularity but no associated stenosis. Mild atherosclerotic involvement at the level of the carotid bulb with no associated stenosis. Right internal carotid. The intracranial ICAs overall unremarkable. Mild fusiform dilatation of the distal cavernous segment is demonstrated. No significant P-comm artery is identified. The MCA and JAMES vessels fill robustly. No other primary pathology is identified. Left common carotid. The bifurcation is free from stenosis. Mild luminal irregularity of the distal cervical course is demonstrated with no associated stenosis. Left internal carotid. The left ICA circulation is overall unremarkable. The intracranial ICA demonstrates mild luminal irregularity but no associated stenosis and is otherwise free from pathology. The MCA and JAMES vessels fill robustly. There is no aneurysm, vascular malformation or fistula.There is no significant stenotic or occlusive process. The venous phase demonstrates a normal pattern with no evidence of congestion. 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 Prior study under conscious sedation was nondiagnostic due to patient's poor compliance under conscious sedation and substantial vessel tortuosity. The patient is returned to the angiography suite for transradial approach under general anesthesia. 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 None ANESTHESIA. General PROCEDURE. Ultrasound guided radial artery access Right radial artery arteriogram Right vertebral artery cervical Right vertebral artery cerebral including 3-D views Right common carotid arteriograms Right internal carotid arteriograms Left common carotid arteriograms Left internal carotid arteriograms ACCESS. Right radial artery HEMOSTASIS. Terumo TR Band PROCEDURE DETAIL. Prior to the procedure, the Barbeau test was performed on the target radial artery. The result was Barbeau A. The pulse oximetry lead remained in place on the first or second digit of the right hand for continuous monitoring throughout the procedure. The patient was brought to the angiography suite and placed supine on the table. General anesthesia was successfully performed by the anesthesia team. The right arm was positioned in modest supination, supported along the patient's right side, with the wrist in mild extension to optimize access to the radial artery. Additionally, the inguinal region was prepped and draped in the usual sterile fashion in the event that femoral access was required. The access site for the right radial artery was located by palpation approximately one finger breadth cephalad to the scaphoid process. Ultrasound of the radial artery was performed. The ultrasound demonstrates the vessel to be widely patent with diameter larger than 1.6mm. The ultrasound image is saved and stored on the PACs system. Under ultrasound guidance, the radial artery was entered with a single wall 20- gauge needle. A microwire was placed under direct fluoroscopic visualization. The Seldinger technique was used to place a Terumo 4/5-F slender sheath in the vessel. All bubbles were meticulously withdrawn and the sheath was carefully flushed and attached to continuous heparinized saline flush system. A radial artery angiogram was performed through the sheath, demonstrating an appropriate course for catheter navigation. Antispasmodic agents verapamil 2.5?mg and nitroglycerine 200?mcg were combined in a 20cc syringe. 10-15cc of blood was withdrawn into the syringe and the mixture were infused through the sheath slowly over 1-2 minutes. Heparin ~70 units/kg was administered intravenously. A 5-Ukrainian Terumo Block-2 or Block-3 diagnostic catheter was introduced through the sheath. It was navigated under direct fluoroscopic visualization over a Glidewire through the vasculature of the right upper extremity to the subclavian artery where it was meticulously flushed. The Block catheter was reformed in the aortic arch. Utilizing a combination of roadmap, guidewire and direct catheter access techniques, the Block catheter was used to perform diagnostic angiography of the above named vessels. The Terumo TR radial armband was applied and inflated and the sheath withdrawn. Patent hemostasis was then achieved by standard technique. The reverse Barbeau test was performed confirming adequate blood supply to the hand. The patient was transferred to the holding area for post-procedural management. FINDINGS: Right vertebral artery cervical. Compared to transfemoral approach, the right vertebral artery was readily accessed from right transradial approach. No significant stenosis involves the origin of the vessel. The cervical course demonstrates mild tortuosity but no associated stenosis. Right vertebral artery. Right vertebral artery demonstrates nondominant caliber. However robust opacification of the aneurysm as well as retrograde filling of the dominant caliber left vertebral artery was able to be achieved. Multiple angiographic views including 3-dimensional angiography of the aneurysm was performed. The aneurysmal segment extends from the vertebral basilar junction to the basilar terminus. The most significant involvement is in the proximal half of the basilar with the distal basilar demonstrating gradual return to near normal caliber at the level of the terminus. The proximal segment is grossly dilated on the order of 2.5 to 3 cm. The midportion of the aneurysmal segment demonstrates kinking is the most prominent dilatation applies mass effect of the lesser involvement distal segment. The basilar terminus extends well above the level of the posterior clinoid. Multiple branching vessels of the posterior circulation arise directly from the aneurysmal vessel including right AICA-PICA complex and smaller right AICA. There is no right PICA. The anterior spinal artery is seen to arise from the left vertebral artery just proximal to the aneurysmal segment. The vessels of the carotid terminus appear spared from pathology. The branching superior cerebellar and INSPECTOR REPAIRER vessels appear within normal limits. Compared to prior angiography in 2010 region is markedly increased in size. Right common carotid. Significant proximal tortuosity is identified with mild luminal irregularity but no associated stenosis. Mild atherosclerotic involvement at the level of the carotid bulb with no associated stenosis. Right internal carotid. The intracranial ICAs overall unremarkable. Mild fusiform dilatation of the distal cavernous segment is demonstrated. No significant P-comm artery is identified. The MCA and JAMES vessels fill robustly. No other primary pathology is identified. Left common carotid. The bifurcation is free from stenosis. Mild luminal irregularity of the distal cervical course is demonstrated with no associated stenosis. Left internal carotid. The left ICA circulation is overall unremarkable. The intracranial ICA demonstrates mild luminal irregularity but no associated stenosis and is otherwise free from pathology. The MCA and JAMES vessels fill robustly. There is no aneurysm, vascular malformation or fistula. There is no significant stenotic or occlusive process. The venous phase demonstrates a normal pattern with no evidence of congestion. IMPRESSION 1. Giant dolichoectatic fusiform vertebrobasilar aneurysm greatly enlarged from prior angiography in 2010 as described above. ATTESTATION: I attest that I performed the entire procedure from beginning to end and am responsible for the image interpretations. Finalized by Ton Weber M.D. on 04/13/2019 12:27 PM. Dictated by Ton Weber M.D. on 04/13/2019 10:54 AM. Performing Organization Address City/State/Zipcode Phone Number [facility] RESULTS * TYPE & CROSSMATCH (04/02/2019 10:46 AM CDT) Only the most recent of 2 results within the time period is included. Units Ordered 0 [facility] Crossmatch 04/05/2019 [facility] Expires Record Check FOUND [facility] ABO/RH(D) O POS [facility] Antibody Screen NEG [facility] Electronic YES [facility] Crossmatch Specimen Blood Performing Organization Address City/State/Zipcode Phone Number [facility] [address] [place] [address] * CBC AND DIFF (04/01/2019 4:28 AM CDT) Only the most recent of 7 results within the time period is included. White Blood 6.8 4.5 - 11.0 K/UL [facility] Cells RBC 3.87 (L) 4.4 - 5.5 M/UL [facility] Hemoglobin 11.9 (L) 13.5 - 16.5 GM/DL [facility] Hematocrit 34.8 (L) 40 - 50 % [facility] MCV 90.1 80 - 100 FL [facility] MCH 30.7 26 - 34 PG [facility] MCHC 34.1 32.0 - 36.0 G/DL [facility] RDW 14.8 11 - 15 % [facility] Platelet Count 178 150 - 400 K/UL [facility] MPV 7.9 7 - 11 FL [facility] Neutrophils 61 41 - 77 % [facility] Lymphocytes 30 24 - 44 % [facility] Monocytes 6 4 - 12 % [facility] Eosinophils 3 0 - 5 % [facility] Basophils 0 0 - 2 % [facility] Absolute 4.10 1.8 - 7.0 K/UL [facility] Neutrophil Count Absolute Lymph 2.00 1.0 - 4.8 K/UL [facility] Count Absolute 0.40 0 - 0.80 K/UL [facility] Monocyte Count Absolute 0.20 0 - 0.45 K/UL [facility] Eosinophil Count Absolute 0.00 0 - 0.20 K/UL [facility] Basophil Count Specimen Blood Performing Organization Address City/State/Zipcode Phone Number [facility] [address] [place] [address] * BASIC METABOLIC PANEL (04/01/2019 4:28 AM CDT) Only the most recent of 7 results within the time period is included. Sodium 139 137 - 147 MMOL/L [facility] Potassium 3.9 3.5 - 5.1 MMOL/L [facility] Chloride 106 98 - 110 MMOL/L [facility] CO2 28 21 - 30 MMOL/L [facility] Anion Gap 5 3 - 12 [facility] Glucose 92 70 - 100 MG/DL [facility] Blood Urea 18 7 - 25 MG/DL [facility] Nitrogen Creatinine 1.19 0.4 - 1.24 MG/DL [facility] Calcium 9.3 8.5 - 10.6 MG/DL [facility] eGFR Non 59 (L) >60 mL/min [facility] Comment: Russian The eGFR is not validated for use in drug dosing adjustments.Continue to use estimated creatinine clearance per dosing reference text.Please contact the Clinical Pharmacist for questions. eGFR >60 >60 mL/min [facility] [place] Comment: The eGFR is not validated for use in drug dosing adjustments.Continue to use estimated creatinine clearance per dosing reference text.Please contact the Clinical Pharmacist for questions. Specimen Blood Performing Organization Address City/State/Zipcode Phone Number [facility] [address] [place] [address] * ABDOMEN AP & LAT (03/29/2019 10:48 PM CDT) Specimen Impressions Performed At Intact abdominal segment of the FOOD SERVICE CASHIER shunt catheter with no evidence of kinking or [facility] discontinuity. Status post aortobiiliac stent graft treatment for abdominal aortic aneurysm. Finalized by Juan Werner M.D. on 03/30/2019 7:13 AM. Dictated by Juan Werner M.D. on 03/30/2019 7:11 AM. Narrative Performed At ABDOMEN AP & LAT [facility] History: VPS. Evaluate ventriculoperitoneal shunt Technique: Supine AP and lateral views of the abdomen were obtained Comparison: No prior examinations are available. Findings: The bowel gas pattern is nonobstructive. There is no significant dilatation of large or small bowel. An aortobiiliac stent graft is in place. There are degenerative changes of the lumbar spine with right convex lumbar scoliosis. Multiple phleboliths are present in the pelvis. A ventriculoperitoneal shunt catheter traverses the left chest wall and is redundantly looped in the left upper quadrant of the abdomen. The tip of the catheter is located anteriorly in the midline. No kinking or disruption of the visualized segment is seen. There are surgical clips in right upper quadrant. Procedure Note Interface, Radiant Results - 03/30/2019 7:16 AM CDT ABDOMEN AP & LAT History: VPS. Evaluate ventriculoperitoneal shunt Technique: Supine AP and lateral views of the abdomen were obtained Comparison: No prior examinations are available. Findings: The bowel gas pattern is nonobstructive. There is no significant dilatation of large or small bowel. An aortobiiliac stent graft is in place. There are degenerative changes of the lumbar spine with right convex lumbar scoliosis. Multiple phleboliths are present in the pelvis. A ventriculoperitoneal shunt catheter traverses the left chest wall and is redundantly looped in the left upper quadrant of the abdomen. The tip of the catheter is located anteriorly in the midline. No kinking or disruption of the visualized segment is seen. There are surgical clips in right upper quadrant. IMPRESSION Intact abdominal segment of the FOOD SERVICE CASHIER shunt catheter with no evidence of kinking or discontinuity. Status post aortobiiliac stent graft treatment for abdominal aortic aneurysm. Finalized by Juan Werner M.D. on 03/30/2019 7:13 AM. Dictated by Juan Werner M.D. on 03/30/2019 7:11 AM. Performing Organization Address City/State/Zipcode Phone Number [facility] * SKULL LIMITED < 4 VIEWS (03/29/2019 10:48 PM CDT) Specimen Impressions Performed At 1.Intact visualized ventricular shunt catheter with shunt valve position [facility] ascending #5. 2.Indwelling bilateral hearing assist devices and right-sided cochlear implantation device. 3.Prominence of the upper mediastinal silhouette, better evaluated on dedicated same-day chest radiographs. Finalized by Abdi Duran M.D. on 03/30/2019 8:37 AM. Dictated by Abdi Duran M.D. on 03/30/2019 8:27 AM. Narrative Performed At Procedure: C SPINE 3 VIEWS OR LESS, SKULL LIMITED < 4 VIEWS [facility] Clinical Indication: , VPS, Comparison: Skull radiographs February 24, 2018 and the chest radiographs from March 29, 2019. Findings: Dr. Abdi Duran M.D. has personally reviewed these images and formulated the interpretations and opinions expressed in this report. Bilateral indwelling hearing assist devices and indwelling right-sided cochlear implantation device. Left frontal approach ventricular shunt catheter with shunt valve position at setting #5. Visualized ventricular shunt catheter device components are intact without kink or discontinuity. Cervical spondylosis with at least mild multilevel degenerative disc disease and marginal osteophyte formation. Prominence of the upper mediastinal silhouette, better evaluated on dedicated same-day chest radiographs. Procedure Note Interface, Radiant Results - 03/30/2019 8:40 AM CDT Procedure: C SPINE 3 VIEWS OR LESS, SKULL LIMITED < 4 VIEWS Clinical Indication: , VPS, Comparison: Skull radiographs February 24, 2018 and the chest radiographs from March 29, 2019. Findings: Dr. Abdi Duran M.D. has personally reviewed these images and formulated the interpretations and opinions expressed in this report. Bilateral indwelling hearing assist devices and indwelling right-sided cochlear implantation device. Left frontal approach ventricular shunt catheter with shunt valve position at setting #5. Visualized ventricular shunt catheter device components are intact without kink or discontinuity. Cervical spondylosis with at least mild multilevel degenerative disc disease and marginal osteophyte formation. Prominence of the upper mediastinal silhouette, better evaluated on dedicated same-day chest radiographs. IMPRESSION 1. Intact visualized ventricular shunt catheter with shunt valve position ascending #5. 2. Indwelling bilateral hearing assist devices and right-sided cochlear implantation device. 3. Prominence of the upper mediastinal silhouette, better evaluated on dedicated same-day chest radiographs. Finalized by Abdi Duran M.D. on 03/30/2019 8:37 AM. Dictated by Abdi Duran M.D. on 03/30/2019 8:27 AM. Performing Organization Address City/State/Zipcode Phone Number [facility] * CHEST 2 VIEWS (03/29/2019 10:48 PM CDT) Specimen Impressions Performed At 1.Intact FOOD SERVICE CASHIER shunt tubing without kink or fracture. [facility] 2.Widening of the upper mediastinum. This is nonspecific, and may be projectional, or due to ectasia of the thoracic aorta. Follow-up upright 2 view chest x-ray is recommended. If the abnormality persists, CT of the chest is recommended. Approved by Dax Funez M.D. on 03/30/2019 9:07 AM By my electronic signature, I attest that I have personally reviewed the images for this examination and formulated the interpretations and opinions expressed in this report Finalized by Juan Werner M.D. on 03/30/2019 9:11 AM. Dictated by Dax Funez M.D. on 03/30/2019 8:24 AM. Narrative Performed At CHEST 2 VIEWS [facility] CLINICAL HISTORY: 84-year-old male, ventriculopleural shunt. COMPARISON: None FINDINGS: PA and lateral views of the chest are submitted for interpretation. Limited evaluation secondary to incomplete inclusion of the thorax on the lateral projection. Shunt tubing overlies the left anterior chest wall. No kink or fracture. Upper limits of normal sized heart. There is prominent widening of the upper mediastinum. Coronary arterial and aortic calcifications are present.. Partial visualization of an abdominal aortic stent graft. Surgical clips project over the upper abdomen. No definite pleural effusion, pneumothorax, or lobar consolidation. Procedure Note Interface, Radiant Results - 03/30/2019 9:14 AM CDT CHEST 2 VIEWS CLINICAL HISTORY: 84-year-old male, ventriculopleural shunt. COMPARISON: None FINDINGS: PA and lateral views of the chest are submitted for interpretation. Limited evaluation secondary to incomplete inclusion of the thorax on the lateral projection. Shunt tubing overlies the left anterior chest wall. No kink or fracture. Upper limits of normal sized heart. There is prominent widening of the upper mediastinum. Coronary arterial and aortic calcifications are present.. Partial visualization of an abdominal aortic stent graft. Surgical clips project over the upper abdomen. No definite pleural effusion, pneumothorax, or lobar consolidation. IMPRESSION 1. Intact FOOD SERVICE CASHIER shunt tubing without kink or fracture. 2. Widening of the upper mediastinum. This is nonspecific, and may be projectional, or due to ectasia of the thoracic aorta. Follow-up upright 2 view chest x-ray is recommended. If the abnormality persists, CT of the chest is recommended. Approved by Dax Funez M.D. on 03/30/2019 9:07 AM By my electronic signature, I attest that I have personally reviewed the images for this examination and formulated the interpretations and opinions expressed in this report Finalized by Juan Werner M.D. on 03/30/2019 9:11 AM. Dictated by Dax Funez M.D. on 03/30/2019 8:24 AM. Performing Organization Address City/State/[facility] Phone Number [facility] * C SPINE 3 VIEWS OR LESS (03/29/2019 10:48 PM CDT) Specimen Impressions Performed At 1.Intact visualized ventricular shunt catheter with shunt valve position [facility] ascending #5. 2.Indwelling bilateral hearing assist devices and right-sided cochlear implantation device. 3.Prominence of the upper mediastinal silhouette, better evaluated on dedicated same-day chest radiographs. Finalized by Abdi Duran M.D. on 03/30/2019 8:37 AM. Dictated by Abdi Duran M.D. on 03/30/2019 8:27 AM. Narrative Performed At Procedure: C SPINE 3 VIEWS OR LESS, SKULL LIMITED < 4 VIEWS [facility] Clinical Indication: , VPS, Comparison: Skull radiographs February 24, 2018 and the chest radiographs from March 29, 2019. Findings: Dr. Abdi Duran M.D. has personally reviewed these images and formulated the interpretations and opinions expressed in this report. Bilateral indwelling hearing assist devices and indwelling right-sided cochlear implantation device. Left frontal approach ventricular shunt catheter with shunt valve position at setting #5. Visualized ventricular shunt catheter device components are intact without kink or discontinuity. Cervical spondylosis with at least mild multilevel degenerative disc disease and marginal osteophyte formation. Prominence of the upper mediastinal silhouette, better evaluated on dedicated same-day chest radiographs. Procedure Note Interface, Radiant Results - 03/30/2019 8:40 AM CDT Procedure: C SPINE 3 VIEWS OR LESS, SKULL LIMITED < 4 VIEWS Clinical Indication: , VPS, Comparison: Skull radiographs February 24, 2018 and the chest radiographs from March 29, 2019. Findings: Dr. Abdi Duran M.D. has personally reviewed these images and formulated the interpretations and opinions expressed in this report. Bilateral indwelling hearing assist devices and indwelling right-sided cochlear implantation device. Left frontal approach ventricular shunt catheter with shunt valve position at setting #5. Visualized ventricular shunt catheter device components are intact without kink or discontinuity. Cervical spondylosis with at least mild multilevel degenerative disc disease and marginal osteophyte formation. Prominence of the upper mediastinal silhouette, better evaluated on dedicated same-day chest radiographs. IMPRESSION 1. Intact visualized ventricular shunt catheter with shunt valve position ascending #5. 2. Indwelling bilateral hearing assist devices and right-sided cochlear implantation device. 3. Prominence of the upper mediastinal silhouette, better evaluated on dedicated same-day chest radiographs. Finalized by Abdi Duran M.D. on 03/30/2019 8:37 AM. Dictated by Abdi Duran M.D. on 03/30/2019 8:27 AM. Performing Organization Address City/State/Zipcode Phone Number [facility] RESULTS * POC GLUCOSE (03/29/2019 4:43 PM CDT) Glucose, POC 141 (H) 70 - 100 MG/DL [facility] Specimen Performing Organization Address City/State/Zipcode Phone Number MAIN LAB [address] [place] [address] * PROTIME INR (PT) (03/29/2019 7:28 AM CDT) Only the most recent of 3 results within the time period is included. INR 1.1 0.8 - 1.2 MAIN LAB Specimen Blood Performing Organization Address City/State/Zipcode Phone Number MAIN LAB [address] [place] [address] * BLOOD TYPE CONFIRMATION - ORDER ONLY IF REQUESTED BY LAB (03/28/2019 8:48 PM CDT) ABO/RH(D) O POS MAIN LAB Specimen Blood Performing Organization Address City/[facility]/Zipcode Phone Number MAIN LAB [address] [place] [address] * 2-D + DOPPLER ECHOCARDIOGRAM (03/27/2019 10:35 AM CDT) LVOT diameter 1.86 cm OTHER OUTSIDE LAB IVS 1.14 0.6 - 1.0 cm OTHER OUTSIDE LAB LVIDD 4.46 4.2 - 5.8 cm OTHER OUTSIDE LAB LVIDS 3.06 2.5 - 4.0 cm OTHER OUTSIDE LAB PW 1.14 0.6 - 1.0 cm OTHER OUTSIDE LAB Left Ventricle 128.47 62 - 150 mL OTHER OUTSIDE Diastolic LAB Volume Left Ventricle 58.40 34 - 74 mL OTHER OUTSIDE Diastolic LAB Volume Index Left Ventricle 61.09 21 - 61 mL OTHER OUTSIDE Systolic Volume LAB Left Ventricle 27.77 11 - 31 mL OTHER OUTSIDE Systolic Volume LAB Index TDI e' 0.07 m/s OTHER OUTSIDE LAB LVOT peak mark 1.25 m/s OTHER OUTSIDE LAB LVOT peak VTI 25.80 cm OTHER OUTSIDE LAB Right 2.67 1.9 - 3.5 cm OTHER OUTSIDE Ventricular Mid LAB Diameter LA size 4.24 3.0 - 4.0 cm OTHER OUTSIDE LAB LA volume 35.39 18 - 58 mL OTHER OUTSIDE LAB Right Atrial 16.82 <18 cm2 OTHER OUTSIDE Area LAB Right Atrial 5.57 2.1 - 2.7 cm OTHER OUTSIDE Major Dimension LAB , with a mean 4.66 mmHg OTHER OUTSIDE gradient of LAB and a peak 8.60 mmHg OTHER OUTSIDE gradient of LAB AV peak 1.47 m/s OTHER OUTSIDE velocity LAB AV 748.89 ms OTHER OUTSIDE regurgitation LAB pressure 1/2 time Ao VTI 28.67 cm OTHER OUTSIDE LAB MV Peak A Mark 0.56 m/s OTHER OUTSIDE LAB MV Peak E Mark 0.45 m/s OTHER OUTSIDE PW LAB Right 3.78 2.5 - 4.1 cm OTHER OUTSIDE Ventricular LAB Basal Diameter Right Heart 0.10 m/s OTHER OUTSIDE Systolic TDI S' LAB Right Heart 1.58 >1.7 cm OTHER OUTSIDE Systolic Mmode LAB TAPSE Ao root annulus 2.19 2.0 - 3.2 cm OTHER OUTSIDE LAB Sinus 4.74 2.8 - 4.0 cm OTHER OUTSIDE LAB STJ 4.59 2.3 - 3.5 cm OTHER OUTSIDE LAB Ascending aorta 4.82 cm OTHER OUTSIDE LAB BSA 2.2 m2 OTHER OUTSIDE LAB FS 31.39 28 - 44 % OTHER OUTSIDE LAB EF 53.36 % OTHER OUTSIDE LAB LV mass 181.53 96 - 200 g OTHER OUTSIDE LAB RWT 0.51 <=0.42 OTHER OUTSIDE LAB Aortic valve 2.45 cm2 OTHER OUTSIDE area= LAB AV index 0.85 OTHER OUTSIDE ([place]) LAB E/A ratio 0.80 OTHER OUTSIDE LAB LVOT area 2.72 cm2 OTHER OUTSIDE LAB LVOT stroke 70.10 cm3 OTHER OUTSIDE volume LAB TV rest 21 mmHg OTHER OUTSIDE pulmonary LAB artery pressure E/E' ratio 6.43 OTHER OUTSIDE LAB Left Atrium 16.09 16 - 34 OTHER OUTSIDE Index LAB Cardiology Siemens [id number] OTHER OUTSIDE Ultrasound LAB Machine Left Ventricle 82.51 50 - 102 g/m2 OTHER OUTSIDE Mass Index LAB ECHO EF 45 % OTHER OUTSIDE LAB Aortic arch 4.4 cm OTHER OUTSIDE LAB Specimen Narrative Performed At OTHER OUTSIDE LAB 1. Normal LV size with concentric remodeling and mildly reduced systolic function, EF ~ 45% 2. Regional wall motion abnormalities as diagrammed below 3. Grade I (mild) left ventricle diastolic dysfunction. 4. Normal RV size with mildly reduced systolic function 5. Normal size atria bilaterally 6. Aortic sclerosis without stenosis.Mild to moderate regurgitation (likely secondary to below) 7. Moderate enlargement of the aortic root, ascending aorta, and aortic arch 8. Estimated peak systolic PA pressure=21 mmHg 9. No pericardial effusion There are no prior studies for comparison. Performing Organization Address City/State/Zipcode Phone Number OTHER OUTSIDE LAB * PTT (APTT) (03/26/2019 1:12 PM CDT) APTT 34.3 24.0 - 36.5 SEC [facility] Specimen Blood Performing Organization Address City/State/Zipcode Phone Number MAIN LAB [address] [place] [address] * TELEMETRY STRIPS-SCAN (03/26/2019 12:00 AM CDT) Narrative Performed At Ordered by an unspecified provider. * ECG-SCAN (03/26/2019 12:00 AM CDT) Narrative Performed At Ordered by an unspecified provider. from Last 3 Months Insurance Type Payer Benefit Subscriber ID Effective Phone Address Plan / Dates Group Medicare MEDICARE MEDICARE xxxxxxxxxxx 2001-P PART A AND resent B Medicare BCBS VIVEK BCBS xxxxxxxxxxxx [id number] SUPPLEMENT resent Advance Directives Patient Merchandise Flow Associate Explanation Type Date Recorded Advance 02/03/2007 12:00 AM Directive/DPOA Date Inactivated Comments Code Status Date Activated 04/04/2019 12:11 PM Full Code 03/26/2019 12:05 PM Provider has discussed Code Status No, more discussion w/Patient or Family? needed
--- OUTSIDE RECORDS SUMMARY | 2019-05-25 00:56 | XMS REPORT | Encounter Summary ---
Author Author [facility] Organization [facility] Address Unknown Phone Unavailable Care Team Providers Care Grocery Worker Name Role Phone Michael Velasquez MD Unavailable Lesley Butcher MD PCP Reason for Visit * Reason Comments Results Encounter Details Care Team Description Date Type Department Ton Weber MD [address] [facility] Ortho/Med Pavilion Lvl 2B [place], [place] [id number] Results 05/22/2019 Telephone [facility] [address] [place] [address] Social History Date Tobacco Use [...] * Telephone Encounter - Glenna Navarro - 05/22/2019 12:38 PM CDT Telephone call to pt's daughter, Dori, to discuss CT of the head done at [facility] in [place], [place] yesterday. Images reviewed by Dr. Fulton as Dr. Meme song is out of the office this week. Findings show the shunt is working properly, no evidence of overdrainage. Since pt is still so unsteady on his feet, suggested they follow up with Estrada' s PCP to have his urine checked for UTI if that has not already been done since that can often be the cause. Dori verbalized understanding and is agreeable to plan. Thanked me for the fol low up call and our concern. She will call PCP to set up an appt. Call ended. documented in this encounter Plan of Treatment Not on filedocumented as of this encounter Visit Diagnoses Not on filedocumented in this encounter
--- OUTSIDE RECORDS SUMMARY | 2019-05-25 00:57 | XMS REPORT | Encounter Summary ---
Author Author [facility] Organization [facility] Address Unknown Phone Unavailable Care Team Providers Care Manufacturing Engineering Technologist Name Role Phone Michael Velasquez MD Unavailable Lesley Butcher MD PCP Reason for Visit * Reason Comments Post Operative Visit 2wk follow-up with CT Encounter Details Care Team Description Date Type Department Kelley Jeong APRN-KARI [address] Ortho/Med Pavilion Lvl [address]B [place] [address] Visit for wound check (Primary Dx) 04/12/2019 Office Visit [facility] [address] [place] [id number] Social History Date Tobacco Use Types Packs/Day [...] Signs Reading Time Taken Comments Vital Sign 129/90 04/12/2019 1:00 PM CDT Blood Pressure 73 04/12/2019 1:00 PM CDT Pulse 37.2 C (98.9 F) 04/12/2019 1:00 PM CDT Temperature - - Respiratory Rate - - Oxygen Saturation - - Inhaled Oxygen Concentration 97.1 kg (214 lb) 04/12/2019 1:00 PM CDT Weight 182.9 cm (6') 04/12/2019 1:00 PM CDT Height 29.02 04/12/2019 1:00 PM CDT Body Mass Index documented in this encounter Functional Status Date of Assessment Functional Status Response 03/26/2019 Does the patient have a hearing impairment: Yes documented as of this encounter Progress Notes * Kelley Jeong APRN-NP - 04/12/2019 1:30 PM CDT Estrada returns today, with a new head CT, for 2 wk f/u s/p Left ventriculoperit khanna shunt placement (Codman Certas Set at 5) by Dr. Weber on 03/29/2019. He remains in inpatient rehab and doing well. He and his family are very please d that his prior gait instability, urinary incontinence, and confusion have impr eladio significantly. He is ambulating with minimal assist. He is eating/drinking wel l. Denies constipation. Denies any redness/swelling/drainage of his incisions He denies any incisional pain. 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 Physical Exam Alert/Fully Oriented Neuro Intact and Stable Baseline Hearing Loss Unchanged Motor/Strength 5/5 Gait Steady-in WC today. Incision edges well approximated. No S/S of infection noted. Estrada returns today for suture removal and 2 wk f/u. Monocryl sutures removed. Incisions healing well. Discussed wound care. His new head CT shows: 1. Stab le left frontal approach shunt position. Slight decrease in Ventriculomegaly. 2. Resolution of postoperative pneumocephalus. No acute hemorr darron. 3. 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 Overall, he has made a most remarkable recovery.He and his family are pleased wi th his progress. Encouraged him to continue with therapy. In regards to his an eurysm repair, he can discuss this with Dr. Weber when he returns for his 4 w k post op visit. Encouraged them to call with any questions and concerns. documented in this encounter Plan of Treatment Not on filedocumented as of this encounter Visit Diagnoses Diagnosis Visit for wound check - Primary Encounter for other specified aftercare documented in this encounter
--- OUTSIDE RECORDS SUMMARY | 2019-05-25 00:58 | XMS REPORT | Encounter Summary ---
Author Author [facility] Organization [facility] Address Unknown Phone Unavailable Care Team Providers Care Dredge Runner Name Role Phone Michael Velasquez MD Unavailable Lesley Butcher MD PCP Reason for Visit * Auth/Cert Referred By Contact Referred To Contact Status Reason Specialty Diagnoses / Procedures Diagnoses Cerebral Aneurysm Encounter Details Care Team Description Date Type Department Ton Weber MD [address] [facility] Lvl [address] [place] [id number] [phone] Aneurysm (HCC) 03/26/2019 [facility] 04/04/[address] [place] [id number] Social History Date Tobacco Use Types Packs/Day [...] Signs Reading Time Taken Comments Vital Sign 134/62 04/04/2019 7:36 AM CDT Blood Pressure 56 04/04/2019 9:30 AM CDT Pulse 36.4 C (97.5 F) 04/04/2019 7:36 AM CDT Temperature - - Respiratory Rate 95% 04/04/2019 7:36 AM CDT Oxygen Saturation - - Inhaled Oxygen Concentration 95.3 kg (210 lb 1.6 oz) 03/27/2019 8:52 AM CDT Weight 182.9 cm (6') 03/27/2019 8:52 AM CDT Height 28.49 03/27/2019 8:52 AM CDT Body Mass Index documented in this encounter Functional Status Date of Assessment Functional Status Response 03/26/2019 Does the patient have a hearing impairment: Yes documented as of this encounter Discharge Summaries * Valery Mccall APRN - 04/04/2019 9:54 AM CDT Physician Discharge Summary Name: Estrada Godoy Date Of : 1935 Age: 84 years Admit date: 03/26/2019 Discharge date: 04/04/2019 Attending Physician: Dr. Ton Weber Service: Surgery-Neuro Physician Summary completed by: Valery Mccall APRN Reason for hospitalization: Urinary, incontinence, gait instability Significant PMH: Medical History: Diagnosis Date Coronary artery disease Hearing loss SYL on CPAP Allergies: Contrast dye iv, iodine containing [iodinated contrast- oral and iv d ye] Admission Physical Exam notable for: 84 y.o. male with past medical history sig nificant for A.Fib on warfarin, CAD s/p CABG and multiple coronary stents, AAA w ho presents to [facility] with complaints of roughly a year worth of gait instability, urinary incontinence, and cognitive decline suggestive of normal pressure hydro cephalus. The patient also has a giant, fusiform basilar artery aneurysm, which has increased dramatically in size since initial images. Brief Hospital Course: The patient was admitted and the following issues were a ddressed during this hospitalization: (with pertinent details). 03/26: Admitted directly from clinic to the hospital. Internal medicine consulted . 03/27: Cardiology consulted. Reb Medicine consulted. 03/29: to OR for INSTRUCTOR OF SOCIOLOGY shunt placement. 03/30: Doing well post operatively. Pain controlled. Working with PT/OT. 03/31: CM/Sw working on discharge plan. 04/02: Repeat angiogram completed. 04/03: MRI/MRA completed. Meeting discharge criteria. 04/04: Discharged to [facility] IR[facility]. Condition at Discharge: Stable Discharge Diagnoses: Hospital Problems Active Problems Aneurysm (HCC) NPH (normal pressure hydrocephalus) Surgical Procedures: Left ventriculoperitoneal shunt placement Significant Diagnostic Studies and Procedures: C-Spine, chest and skull x-rays; MRA and MRI head; Cerebral Angiogram; CT head Consults: Cardiology, Internal Medicine and Rehabilitative Medicine Patient Disposition: Outside Rehabilitation Facility Patient instructions/medications: Other Activity Restrictions Activity as tolerated; No driving until cleared by your surgeon at follow up ap pointment. Avoid pulling, pushing or lifting greater than 10 pounds. May shower post operative day 5, gently wash incision and scalp with baby shampo o, pat dry gently. Do not submerge under bath water, pool water, etc. Do not u se any heating elements, or hair products Leave incision open to air; may cover with gauze and tape as needed OT EVAL & TREAT PT EVAL & TREAT Report These Signs and Symptoms Call if temperature greater than 101, incision red, drainage or odor noted from incision, pain that is uncontrolled with pain medication, numbness or weakness, vision changes, trouble with speech or slurring of speech, or any questions/con cerns. Questions About Your Stay For questions or concerns regarding your hospital stay, call [phone] Discharging attending physician: TON WEBER [[id number]] Regular Diet You have no dietary restriction. Please continue with a healthy balanced diet. Current Discharge Medication List START taking these medications Details acetaminophen (TYLENOL) 325 mg tablet Take two tablets by mouth every 6 hours as needed. Refills: 0 PRESCRIPTION TYPE: No Print aspirin 325 mg tablet Take one tablet by mouth daily. Take with food. Qty: 90 tablet, Refills: 3 PRESCRIPTION TYPE: No Print heparin (porcine) PF 5,000units/0.5mL injection syringe Inject 0.5 mL under the skin every 8 hours. May discontinue once mobilizing well PRESCRIPTION TYPE: No Print CONTINUE these medications which have been CHANGED or REFILLED Details !! cholecalciferol (VITAMIN D) 1,000 units tablet Take one tablet by mouth daily . Qty: 90 tablet PRESCRIPTION TYPE: No Print spironolactone (ALDACTONE) 25 mg tablet Take one tablet by mouth daily. Take wit h food. Qty: 90 tablet, Refills: 3 PRESCRIPTION TYPE: Normal warfarin (COUMADIN) 3 mg tablet Take three tablets by mouth daily. Do not resume until discussed with Dr. Weber at your follow up appointment Qty: 90 tablet, Refills: 3 PRESCRIPTION TYPE: No Print !! - Potential duplicate medications found. Please discuss with provider. CONTINUE these medications which have NOT CHANGED Details allopurinol (ZYLOPRIM) 100 mg tablet Take 100 mg by mouth daily. Take with food. PRESCRIPTION TYPE: Historical Med amiodarone (CORDARONE) 200 mg tablet Take 200 mg by mouth three times daily. Jase e with food. PRESCRIPTION TYPE: Historical Med atorvastatin (LIPITOR) 80 mg tablet Take 80 mg by mouth at bedtime daily. PRESCRIPTION TYPE: Historical Med !! cholecalciferol(+) (VITAMIN D-3) 5,000 unit tablet Take 5,000 Units by mouth twice daily. PRESCRIPTION TYPE: Historical Med citalopram (CELEXA) 40 mg tablet Take 40 mg by mouth daily. PRESCRIPTION TYPE: Historical Med fexofenadine(+) (RACHEL) 180 mg tablet Take 180 mg by mouth daily. PRESCRIPTION TYPE: Historical Med fluticasone propionate (FLONASE) 50 mcg/actuation nasal spray Apply 1 spray to e ach nostril as directed daily. Shake bottle gently before using. PRESCRIPTION TYPE: Historical Med losartan (COZAAR) 50 mg tablet Take 50 mg by mouth daily. PRESCRIPTION TYPE: Historical Med pantoprazole DR (PROTONIX) 40 mg tablet Take 40 mg by mouth daily. PRESCRIPTION TYPE: Historical Med polyvinyl alcohol/povidone(+) (REFRESH) 1.4/0.6 % ophthalmic solution Apply 1 dr op to both eyes daily as needed. PRESCRIPTION TYPE: Historical Med rOPINIRole (REQUIP) 0.25 mg tablet Take 0.25 mg by mouth at bedtime daily. PRESCRIPTION TYPE: Historical Med tamsulosin (FLOMAX) 0.4 mg capsule Take 0.4 mg by mouth daily. Do not crush, elke w or open capsules. Take 30 minutes following the same meal each day. PRESCRIPTION TYPE: Historical Med vitamins, multi w/minerals 9 mg iron-400 mcg tab Take 1 tablet by mouth daily. PRESCRIPTION TYPE: Historical Med !! - Potential duplicate medications found. Please discuss with provider. The following medications were removed from your list. This list includes medic ations discontinued this stay and those removed from your prior med list in our system aspirin EC 81 mg tablet lactobacillus rhamnosus (GG) (CULTURELLE) 10 billion cell cap Scheduled appointments: Apr 12, 2019 11:[address] HEAD W/O CONTRAST with CT - [facility] (JUNIOR [place]) [address] [facility] [address] Apr 12, 2019 1:30 PM CDT Post - Op with NEUROSURGERY INFORMATION [facility] (NeuroSurgery) [address] Level 2 Pod B [facility] [id number] Jul 19, 2019 1:00 PM CDT COCHLEAR INTERP with NELL Joseph [facility] (ENT) [address] Level 3 Pod C [facility] [id number] Pending items needing follow up: None Signed: Valery Mccall APRN 04/04/2019 cc: Primary Care Physician: Lesley Butcher Verified Referring physicians: No ref. provider found Additional provider(s): documented in this encounter Discharge Instructions * Patient Instructions* Mickie Galeano RN - 03/30/2019 2:52 PM CDT INTERVENTIONAL RADIOLOGY DISCHARGE INSTRUCTIONS ARTERIOGRAM An arteriogram or angiogram is a procedure in which a tiny catheter is inserted into an artery and fluoroscopy (x-rays) and contrast dye are used by the Interve ntional Radiologist to diagnose or treat certain conditions. Some examples of conditions that involve arteriography include narrowed or blocked arteries, magdaleno rial malformations, and arterial bleeding that may occur from trauma. Arteriography can be used in many different parts of the body and may also be us ed during treatment of certain malignancies. This procedure is being done for you for the following reason: . POST-PROCEDURE ACTIVITY: A responsible adult must drive you home after the procedure. If you receive sedation or anesthesia, do not drive, operate heavy machinery or do anything that requires concentration for at least 24 hours. It is recommended that a responsible adult be with you until morning. Avoid any exertion for one week. Exertion is lifting over 10 lbs., pushing, pulling or straining. Avoid excessive bending, stooping, or stair climbing for 2 days. It is okay to go up stairs or bend over but take it slowly and keep it to a minimum. You may be up and about while relaxing at home as you recover. POST-PROCEDURE SITE CARE: You will have a bandage over the site. Keep this dry. You may remove it i n 24 hours. You may shower in 24 hours after removing the bandage. Wash and dry the sit e gently. Do not submerge the site underwater for one week (no tub bath, swimming, hot tub, etc.) Do not use ointments, creams or powders on the puncture site. Be sure your hands are clean when touching near the site. Inspect the site daily. DIET/MEDICATIONS: You may resume your previous diet after the procedure. If you receive sedation or narcotic pain medications, avoid any foods or beve rages containing alcohol for at least 24 hours. Please see the Medication Reconciliation sheet for instructions regarding res uming your home medications. WHEN TO CALL THE DOCTOR: If you have significant bleeding (more than a teaspoon) or swelling at the si te (bigger than a golf ball), lie down, apply firm pressure to the site and call 911. Bleeding from a large vessel requires professional help. If you have signs of infection such as: Chills, body aches, fever greater jose angel n 101F, redness, swelling or warmth at the puncture site. If you havesevere pain unrelieved by medication. It is common to have mil d soreness or slight swelling at the puncture site for 1-2 weeks. If you have numbness, tingling, or weakness in the leg below the puncture sit e or your leg becomes cold and pale. If you have persistent nausea or vomiting. You or your caregiver should call 911 for severe symptoms such as excessive blee ding, chest pain, shortness of breath or loss of consciousness. For any of the above symptoms or for problems or concerns related to the procedu re,call [phone] for Tuesday-Tuesday 7-5. After-hours and weekends, lizeth hsieh [phone] and ask for the Interventional Electrical Maintenance Man alonzojarred linda * Additional Instructions* Allison Stockton RN - 03/30/2019 2:40 PM CDT Estrada Godoy NPH (normal pressure hydrocephalus) with Left ventriculoperitoneal shunt placeme nt on 03/29/[address] Weber Neurosurgery Discharge Instructions Contact information: ? Please feel free to call Neurosurgery at any time if you have questions or are experiencing problems at discharge [phone]. Post-operative wound care: ? Your head incision has dissolvable sutures in place. Your incision may be open to air. ? Your abdominal incision has dissolvable sutures and glue in place. ? Keep your head incision dry for 5 days. After this you may shower normally on 04/03/19. ? Use baby shampoo to wash incision, pat dry and leave open to air. ? Do not submerge your incision under water at all for 6 weeks. ? Have someone look at your incision every day. It should look the same or efren r daily. ? Do not apply any ointment, cream or lotions to incision line. Activity restrictions: ? Avoid pushing, pulling, lifting or bending more than 10 pounds (about a gallon of milk). If you hold children, they should be placed in your lap or crawl into lap if old enough. ? Do NOT drive until you are cleared by your physician. Post-operative pain and medications: ? Please use your pain medications and muscle relaxers as prescribed. ? Pain medications can make you constipated. You may take a stool softener and m iralax. ? Do NOT take Ibuprofen or NSAIDS (Aleve, Motrin, Naproxen) until doctor approve d. ? Tylenol is approved for pain control. This is available over the counter. Follow up appointment: ? 04/12/19 @ 11:15, CT head w/o contrast @ [facility], prior to appointment. ? 04/12/19 @ 1:45 with Nurse Practitioner for wound check and follow up. Please contact Neurosurgery if you develop any of the following: ? New or worsening changes in coordination or loss of balance. ? New or worsening changes in memory, confusion, speech or vision. ? Fever 101 or greater. Redness, swelling, continuous oozing, fluid collection, warmth or bad odor near the incision site. ? Intense pain that is getting worse or unrelieved by pain medications or muscle relaxers. documented in this encounter Medications at Time of [...] directed daily. Shake bottle gently before using. losartan (COZAAR) 50 mg Take 50 mg by 0 tablet mouth daily. pantoprazole DR Take 40 mg by 0 [...] Dr. Weber at your follow up appointment 04/04/2019 05/09/2019 heparin (porcine) PF Inject 0.5 mL 0 5,000units/0.5mL under the injection syringe skin every 8 hours. May discontinue once mobilizing well documented as of this encounter Progress Notes * Pako Hooker RN - 04/04/2019 9:51 AM CDT RN educated pt, SO and daughter regarding all d/c instructions. No PIV to be re moved. All pt belongings returned. Report called to IKE Sierra at [facility] ). Pt taken off unit via WC by family with all belongings, d/c paperw ork and facility packet. * Cristofer Greenfield - 04/04/2019 9:18 AM CDT Reason for Visit: Follow up visit, Mindy/Jew: Alevism catholci Source of Purpose/Meaning: making good progress, talking about moving to the nex t stage of care and planing to move to rehab facility in [facility] , his and katiuska griggs who support and care for him pleased with the progress making, provided pastoral support, offered prayer, Worries/Concerns/Struggles: Method(s) of Coping: Support System: Interventions/Plan: * Valery Mccall APRN - 04/04/2019 8:33 AM CDT Neurosurgery Progress Note Admission Date: 03/26/2019 LOS: 9 days S: Doing well this AM. 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 male Active Problems: Aneurysm (HCC) NPH (normal pressure hydrocephalus) OR 03/29/19 Left INSTRUCTOR OF SOCIOLOGY shunt system placement Continue current care PT/OT Pain control Discharge planning -- CM/SW invovlved;- IPR planned at [facility] for this AM Prophylaxis: B) Lines: No C) Urinary Catheter: No D) Antibiotic Usage: No E) VTE: Pharmacological prophylaxis; SQ Heparin and Mechanical prophylaxis; Seq uential compression device F) Restraints: Patient assessed for need for restraints. Please call [phone] with any questions. Valrey Mccall APRN [id number] or Demetria hope * Valery Mccall APRN - 04/03/2019 10:19 AM CDT Neurosurgery Progress Note Admission Date: 03/26/2019 LOS: 8 days S: Doing well this AM, discussed plan for MRI today. Family remains hopeful for rehab placement soon. 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 male Active Problems: Aneurysm (HCC) NPH (normal pressure hydrocephalus) OR 03/29/19 Left INSTRUCTOR OF SOCIOLOGY shunt system placement Continue current care Plan for MRI today Cardiology consutled - no need to bridge his anticoagulation post operatively; w ill discuss using Lovenx as anticoagulation after angio today will be needed aft er intervention in addition to brilinta and ASA. PT/OT Pain control Discharge planning -- CM/SW invovlved;- IPR planned at [address] [facility] Prophylaxis: B) Lines: No C) Urinary Catheter: No D) Antibiotic Usage: No E) VTE: Pharmacological prophylaxis; SQ Heparin and Mechanical prophylaxis; Seq uential compression device F) Restraints: Patient assessed for need for restraints. Please call [phone] with any questions. Valery Mccall APRN [id number] or Demetria me * Lorna Liz - 04/03/2019 9:15 AM CDT OCCUPATIONAL THERAPY PROGRESS NOTE Patient Name: Estrada Godoy Room/Bed: [place] [address] Admitting Diagnosis: Cerebral Aneurysm Mobility Progressive Mobility Level: Walk in hallway Distance Walked (feet): 380 ft Level of Assistance: Assist X1 Assistive Device: Hand Held Time Tolerated: 11-30 minutes Activity Limited By: Weakness Subjective Pertinent Dx per Physician: 84 y.o. 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 Precautions: Standard;Falls Pain / Complaints: Patient has no c/o pain;Patient agrees to participate in ther apy Pain Level Current: No pain Comments: Pt leaving unit to MRI with transport upon therapist exit. Objective Psychosocial Status: Willing and Cooperative to Participate Persons Present: Family;Physical Therapist(Simultaneous filing. User may not hav e seen previous data.) Home Living Type of Home: House(Simultaneous filing. User may not have seen previous data.) Home Layout: One Level;Stairs to Enter w/ Rails Bathroom Shower / Tub: Walk-in Shower Bathroom Toilet: Standard Bathroom Equipment: Shower Chair Home Equipment: Walker;Cane Prior Function Level Of [place]: Needed assistance with functional transfers Lives With: Spouse Receives Help From: Spouse Homemaking Assist: Total Assist Vocational: Retired Other Function Comments: In the past two weeks family has been assisting with fu nctional mobility. Independent with basic ADLs. Significant fall history. Vision Current Vision: Wears Glasses Only for Reading ADL's Where Assessed: In Bathroom;Standing at Sink;Edge of Bed Grooming Assist: Minimal Assist Grooming Deficits: Steadying;Setup;Supervision/Safety;Wash/Dry Hands LE Dressing Assist: Minimal Assist LE Dressing Deficits: Setup;Steadying;Supervision/Safety;Increased Time To Compl ete;Don/Doff R Sock;Don/Doff L Sock;Fasteners Toileting Assist: Minimal Assist Toileting Deficits: Steadying(Assist to untie pants; Assist for controlled stand >sit) Functional Transfer Assist: Minimal Assist Functional Transfer Deficits: Steadying Comment: Stand by assist for supine to sit with HOB elevated and increased time. ADLs per above. Fair+ dynamic sitting balance while threading LEs into pants. R equired cues to avoid bearing down during dressing task (SpO2=96%). Minimal assi st for mobility; pt veering to R during hallway mobility. Required cues for step length (PT provided). Pt required one instance of increased steadying assist du ring loss of balance after over-correcting step length. Minimal assist for toile t transfer; pt managed liat care at seated level. Activity Tolerance Endurance: 3/5 Tolerates 25-30 Minutes Exercise w/Multiple Rests Sitting Balance: 4+/5 Moves/Returns Trunkal Midpoint 1-2 Inches in Multiple Plan es Cognition Overall Cognitive Status: Impaired Comprehension: Hard of Hearing(cochlear implant, improved hearing on L with hear ing aid) Social Interaction: Increased Time to Adjust Problem Solving: Decreased Judgment/Safety Orientation: To Person;To Place;To Situation Attention: Awake/Alert Education Persons Educated: Patient/Family Barriers To Learning: Decreased Hearing Teaching Methods: Verbal Instruction;Demonstration Topics: Role of OT, Goals for Therapy;ADL Compensatory Techniques Goal Formulation: With Patient/Family Assessment Assessment: Decreased ADL Status;Decreased Safe/Judg during ADL;Decreased Endura nce;Decreased Self-Care Trans;Decreased High-Level ADLs Prognosis: Good;w/Cont OT s/p Acute Discharge AM-PAC 6 Clicks Daily Activity Inpatient Putting on and taking off regular lower body clothes?: A Little Bathing (Including washing, rinsing, drying): A Lot Toileting, which includes using toilet, bedpan, or urinal: A Little Putting on and taking off regular upper body clothing: A Little Taking care of personal grooming such as brushing teeth: A Little Eating meals?: None Daily Activity Raw Score: 18 Standardized (t-scale) score: 38.66 CMS 0-100% Score: 46.65 CMS G Code Modifier: CK Plan OT Frequency: 5x/week OT Plan for Next Visit: Total body dressing, including item retrieval from vario us surface heights; Bathing ADL Goals Patient Will Perform Grooming: Standing at Sink;w/ Stand By Assist Patient Will Perform LE Dressing: In Chair;w/ Stand By Assist Patient Will Perform Toileting: w/ Stand By Assist Functional Transfer Goals Pt Will Perform All Functional Transfers: w/ Stand By Assist, w/ Good Judgment/S afety OT Discharge Recommendations Recommendation: Inpatient setting Patient Currently Requires Physical Assist With: Ambulation, Dressing, Bathing, In and out of house, Stairs, Transfers, Toileting Therapist: Lorna Liz OTR/Angely [id number] Date: 04/03/2019 * Bryce Boyer, PT - 04/03/2019 8:50 AM CDT PHYSICAL THERAPY PROGRESS NOTE MOBILITY: Progressive Mobility Level: Walk in hallway Distance Walked (feet): 380 ft Level of Assistance: Assist X1 Assistive Device: Hand Held Time Tolerated: 11-30 minutes Activity Limited By: Weakness SUBJECTIVE: Significant hospital events: 84 y.o. male with PMHx significant for A.Fib on in, CAD s/p CABG and multiple coronary stents, AAA who presents to [facility] with CC of roughly a year worth of gait instability, urinary incontinence, and cognit hayden decline suggestive of normal pressure hydrocephalus. 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 OR 03/29/19 Left INSTRUCTOR OF SOCIOLOGY shunt system placeme nt Mental / Cognitive Status: Alert;Oriented;Cooperative;Follows Commands Persons Present: Spouse;Family;Occupational Therapist Pain: Patient has no complaint of pain Pain Interventions: Patient agrees to participate in therapy;Patient assisted in to position of comfort Ambulation Assist: Assist Needed with Mobility-Related ADL's/Ambulation Patient Owned Equipment: Single Point Cane;Roller Walker Home Situation: Lives with Family Type of Home: House Entry Stairs: 1-2 Stairs;No Rail In-Home Stairs: 1-2 Stairs BED MOBILITY/TRANSFERS: Bed Mobility: Supine to Sit: Standby Assist;Head of Bed Elevated;No Rail Transfer Type: Sit to/from Stand Transfer: Assistance Level: From;Bed;To;Toilet;Minimal Assist Transfer: Assistive Device: None Transfers: Type Of Assistance: Verbal Cues;For Balance;For Strength Deficit;For Safety Considerations Other Transfer Type: Sit to/from Stand Other Transfer: Assistance Level: From;Toilet;To;Wheelchair;Minimal Assist Other Transfer: Assistive Device: None Other Transfer: Type Of Assistance: For Balance;For Strength Deficit;For Safety Considerations End Of Activity Status: Nursing Notified(in wheelchair for transport) Comments: Patient requires assist at gait belt for steadying BALANCE: Standing Balance: Static Standing Balance;Dynamic Standing Balance;Minimal Abelardo t GAIT: Gait Distance: 380 feet Gait: Assistance Level: Minimal Assist;Safety Considerations Gait: Assistive Device: None Gait: Descriptors: Decreased foot clearance RLE;Decreased foot clearance LLE;For smallwood trunk flexion;Pace: Slow;Pathway deviations;Decreased knee extension in sta nce phase RLE;Decreased knee extension in stance phase LLE;Loss of balance;Varia ble step length Comments: Patient with pathway deviation to the right with ambulaiton. Cues for increased step length on R. Patient with some difficulty with increased step dee gth. Stairs: Number Climbed: 3 Stairs: Descriptors: Ascend;Descend;Non-Reciprocal Stairs: Assistance Level: Minimal Assist;x2 People Stairs: Assistive Device: One Rail Activity Limited By: Weakness ACTIVITY/EXERCISE: Comments: Static standing at bedside while attempting to tie pants and static st anding in diaz for ~3 minutes. EDUCATION: Persons Educated: Patient Patient Barriers To Learning: Decreased Hearing Interventions: Family Education;Louder Voice Required Teaching Methods: Verbal Instruction;Demonstration Patient Response: More Instruction Required;Verbalized Understanding Topics: Plan/Goals of PT Interventions;Use of Assistive Device/Orthosis;Mobility Progression;Precautions;Safety Awareness;Importance of Increasing Activity;Fadi mmend Continued Therapy ASSESSMENT/PROGRESS: Comments: Patient tolerates ambulation distance well today. He is limited by wea kness and impaired balance, but will continue to progress well with therapy. Turning from your back to your side while in a flat bed without using bed rails: A Little Moving from lying on your back to sitting on the side of a flatbed without using bedrails : A Little Moving to and from a bed to a chair (including a wheelchair): A Little Standing up from a chair using your arms (e.g. wheelchair, or bedside chair): A Little To walk in hospital room: A Little Climbing 3-5 steps with a railing: A Little Raw Score: 18 Standardized (T-scale) Score: 41.05 Basic Mobility CMS 0-100%: 40.47 CMS G Code Modifier for Basic Mobility: CK GOALS: Goal Formulation: With Patient/Family Time For Goal Achievement: 4 days Patient Will Go Supine To/From Sit: Independently Patient Will Transfer Bed/Chair: Independently Patient Will Ambulate: Greater than 200 Feet, w/ Walker, w/ Stand By Assist Patient Will Go Up / Down Stairs: 3-5 Stairs, w/ Stand By Assist PLAN: Treatment Interventions: Mobility Training;Strengthening;Balance Activities;Coor dination Training;Endurance Training;Family Training Plan Frequency: 5 Days per Week PT Plan for Next Visit: Progress ambulation distance with no AD and continue sta ir training. Balance activitites. RECOMMENDATIONS: Recommendation: Inpatient setting;Recommend rehab medicine consult Patient Currently Requires Physical Assist With: Ambulation;Stairs Therapist: Bryce Boyer PT, DPT Date: 04/03/2019 * Cristofer Greenfield - 04/02/2019 5:26 PM CDT Reason for Visit: Follow up visit, Mindy/Jew: Alevism, Source of Purpose/Meaning: Patient is not told about his prognosis, and da porschehter who care seemed very anxious, provided pastoral support, Worries/Concerns/Struggles: Method(s) of Coping: Support System: Interventions/Plan: * Crystal Coombs, RN - 04/02/2019 4:56 PM CDT This RN informed of pt condition earlier while recovering in IR this afternoon. No phone call received from IR once pt planned to return. Pt arrived back on from IR, time unknown. Family stated pt had been back on CA7 "a long time". Th is RN called IR to specify time pt arrived back on CA7. Time estimated to be 160 0. IKE Velazquez stated she informed staff in both nursing pods on [place] end. CA7 s taff denies notification of pt arrival. Assessment completed. Alert and oriented x3. Pt reporting no pain. Wounds clean, dry, and intact. Post IR procedure reviewed and implemented. Will continue to m onitor and assess. * Marcus Alvarado RN - 04/02/2019 4:15 PM CDT Report called to primary RN. Patient transported back to [facility]. Primary nurse un available. Nursing staff notified of patient arrival at two nursing stations. RN s at patient station verbalized agreement to notify patient's RN of arrival. * Marcus Alvarado RN - 04/02/2019 2:27 PM CDT POST PROCEDURE GUIDELINES: Radial Access Arteriogram Special Considerations 1. No blood pressure readings in affected arm post hemostasis for 24 hours. 2. No IVs or lab draws in affected arm post hemostasis for 2 hours. 3. Do not reapply band if bleeding/hematoma occur post removal. Apply manual pre ssure until hemostasis is obtained and notify procedural physician and[facility]. 4. Elevate arm on pillow and limit activity for 24 hours. 5. Patient may ambulate once patient returns to baseline post procedure recovery score. Patient Teaching Post Removal / Discharge Instructions: 6. Keep affected wrist straight for 24 hours 7. Keep affected arm clean and dry for 2 days 8. No soaking in bathtub or Jacuzzi for 1 week 9. May allow to get wet in shower after 48 hours 10. No lifting >5 pounds or pushing with affected arm for 48 hours 11. No driving for 48 hours 12. Notify Physician with any complaints of hand pain, numbness, and/or tingling 13. If bleeding / hematoma occur at the site hold pressure and call physician. I f unable to stop bleeding call 911. Complications Notify physician or midlevel practitioner for the following: Absence of radial or ulnar pulse, capillary refill >3 seconds, cyanosis, numbness, tingling, and/or pain in affected arm Bleeding or hematoma Any complication or if unable to remove compression device within 2 hours for di agnostic or 4 hours for interventional procedure Assess and document affected upper extremity for sensation, movement, strength, quality of distal pulses, skin color, temperature, evidence of bleeding or hemat mayelin, and site dressing with every site assessment. Complete and document as orde red: Sheath, site neurovascular, pulse assessment, vital signs Frequency: Q15 minutes x4, Q30 minutes x2, Q1 hour x 4, Q2 hour x 2, then resume previous o rders. Restart frequency of checks and vital signs after band is removed and if at any point you notice new bleeding or a hematoma develops. * Marcus Alvarado RN - 04/02/2019 2:18 PM CDT Patient's radial artery began oozing at TR band site in the process of air remov al. 2mL of air injected back into TR Band and oozing stopped. Dr. Weber notif ied. Per physician orders, keep the band at 10mL of air for 30 minutes and resta rt deflation protocol. * Bryce Boyer, PT - 04/02/2019 1:29 PM CDT PHYSICAL THERAPY NOTE Patient is unavailable for physical therapy at this time as they are in IR. Phys ical therapy will continue to follow and provide intervention as indicated. Therapist: Bryce Boyer PT, DPT Date: 04/02/2019 * Lora Castro APRN - 04/02/2019 12:41 PM CDT Neurosurgery Progress Note Admission Date: 03/26/2019 LOS: 7 days S: Doing well this AM, discussed plan for angio today. Family remains hopeful fo r rehab tomorrow. 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 Will start ASA 325 tomorrow. PT/OT-rehab planned at [facility] Pain control Prophylaxis: B) Lines: No C) Urinary Catheter: No D) Antibiotic Usage: No E) VTE: Mechanical prophylaxis; Sequential compression device SQ heparin F) Restraints: Patient assessed for need for restraints. Please call [phone] with any questions. Lora Castro APRN [id number] * Yi Farris RN - 04/02/2019 10:23 AM CDT Anesthesia at bedside to maintain & monitor airway, medications, and vital signs. * Lorna Liz - 04/02/2019 10:20 AM CDT OCCUPATIONAL THERAPY NOTE OT and PT continuing to follow. Pt to IR for angiogram this morning. Will contin ue to follow to progress with therapy plan of care as able and indicated. Therapist: SAMMY Cole/Angely [id number] Date: 04/02/2019 * Lorna Liz - 04/01/2019 12:19 PM CDT OCCUPATIONAL THERAPY PROGRESS NOTE Patient Name: Estrdaa Godoy Room/Bed: KB4341/01 Admitting Diagnosis: Cerebral Aneurysm Mobility Progressive Mobility Level: Walk in hallway Distance Walked (feet): 350 ft Level of Assistance: Assist X1 Assistive Device: Walker Time Tolerated: 0-10 minutes Activity Limited By: Weakness Subjective Pertinent Dx per Physician: 84 y.o. 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 Precautions: Standard;Falls Pain / Complaints: Patient has no c/o pain;Patient agrees to participate in ther apy Comments: Pt in bed upon therapist arrival and positioned for comfort in recline r with needs in reach and precautions in place at end of session. Objective Psychosocial Status: Willing and Cooperative to Participate Persons Present: Spouse;Family Home Living Type of Home: House Home Layout: One Level;Stairs to Enter w/ Rails Bathroom Shower / Tub: Walk-in Shower Bathroom Toilet: Standard Bathroom Equipment: Shower Chair Home Equipment: Walker;Cane Prior Function Level Of [place]: Needed assistance with functional transfers Lives With: Spouse Receives Help From: Spouse Homemaking Assist: Total Assist Vocational: Retired Other Function Comments: In the past two weeks family has been assisting with fu nctional mobility. Independent with basic ADLs. Significant fall history. Vision Current Vision: Wears Glasses Only for Reading ADL's Where Assessed: Standing at Sink;Chair;Edge of Bed;In Bathroom Grooming Assist: Minimal Assist Grooming Deficits: Setup;Verbal Cueing;Supervision/Safety;Steadying;Increased Ti me To Complete;Standing With Assistive Device;Teeth Care LE Dressing Assist: Stand By Assist(socks only; at EOB) LE Dressing Deficits: Setup;Increased Time To Complete;Supervision/Safety;Don/Do ff R Sock;Don/Doff L Sock Functional Transfer Assist: Minimal Assist(without AD, contact guard with walker ) Functional Transfer Deficits: Steadying Comment: Stand by assist for supine to sit with HOB slightly raised. Minimal ass ist + consistent cues for functional sit <> stands with walker. Pt picking walker up while turning, requiring cueing and demonstration. Pt required minimal steadying assist for balance without assistive device. Improved steadiness with roller walker, however, pt requires consistent verbal cues d/t decreased roller walker management. Activity Tolerance Endurance: 3/5 Tolerates 25-30 Minutes Exercise w/Multiple Rests Sitting Balance: 4+/5 Moves/Returns Trunkal Midpoint 1-2 Inches in Multiple Plan es Comment: Sitting balance and tolerance for activity improved today in comparison to previous session. SpO2=97% upon therapist exit. Cognition Overall Cognitive Status: Impaired Comprehension: Hard of Hearing Social Interaction: Increased Time to Adjust Problem Solving: Decreased Judgment/Safety Attention: Awake/Alert Cognition Comment: SENECA. Pt primarily reads lips to comprehend instruction. Assessment Assessment: Decreased ADL Status;Decreased Safe/Judg during ADL;Decreased Endura nce;Decreased Self-Care Trans;Decreased High-Level ADLs Prognosis: Good;w/Cont OT s/p Acute Discharge Goal Formulation: Pt/family Plan OT Frequency: 5x/week OT Plan for Next Visit: Sink level ADLs, safety awareness, high level balance, t oileting ADL Goals Patient Will Perform Grooming: Standing at Sink;w/ Stand By Assist Patient Will Perform LE Dressing: In Chair;w/ Stand By Assist Patient Will Perform Toileting: w/ Stand By Assist Functional Transfer Goals Pt Will Perform All Functional Transfers: w/ Stand By Assist, w/ Good Judgment/S afety OT Discharge Recommendations Recommendation: Inpatient setting Patient Currently Requires Physical Assist With: All mobility, All personal care ADLs, All home functioning ADLs Therapist: SAMMY Cole/Angely [id number] Date: 04/01/2019 * Mara Murillo MD - 04/01/2019 7:47 AM CDT Neurosurgery Progress Note Admission Date: 03/26/2019 LOS: 6 days S: NAEON, no complaints this AM, pain controlled. Discussed plan for MRI and an nathalie tomorrow. Patient anxious to leave hospital. 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 Please call [phone] with any questions. Mara Murillo MD * Omar Betancourt, PT - 03/31/2019 9:40 AM CDT PHYSICAL THERAPY PROGRESS NOTE MOBILITY: Progressive Mobility Level: Walk in hallway Distance Walked (feet): 375 ft Level of Assistance: Assist X1 Assistive Device: Walker Time Tolerated: 11-30 minutes Activity Limited By: Weakness SUBJECTIVE: Significant hospital events: 84 y.o. male with PMHx significant for A.Fib on war farin, CAD s/p CABG and multiple coronary stents, AAA who presents to [facility] with CC of roughly a year worth of gait instability, urinary incontinence, and cognit hayden decline suggestive of normal pressure hydrocephalus. 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 OR 03/29/19 Left INSTRUCTOR OF SOCIOLOGY shunt system placeme nt Mental / Cognitive Status: Alert;Oriented;Cooperative;Follows Commands Persons Present: Spouse;Family Pain: Patient has no complaint of pain Pain Interventions: Patient agrees to participate in therapy;Patient assisted in to position of comfort Ambulation Assist: Assist Needed with Mobility-Related ADL's/Ambulation Patient Owned Equipment: Single Point Cane;Roller Walker Home Situation: Lives with Family Type of Home: House Entry Stairs: 1-2 Stairs;No Rail In-Home Stairs: 1-2 Stairs Comments: Recent history of falls ROM: UE ROM: WFL LE ROM: WFL STRENGTH: Overall Strength: Generalized Weakness POSTURE/NEURO: Head Control: Independent Posture: Forward Head;Rounded Shoulders BED MOBILITY/TRANSFERS: Comments: Pt in bedside chair at beginning and end of session. Transfer Type: Sit to/from Stand Transfer: Assistance Level: Minimal Assist;To/From;Bed Side Chair;Toilet Transfer: Assistive Device: Roller Walker Transfers: Type Of Assistance: Verbal Cues;For Balance;For Strength Deficit;For Safety Considerations End Of Activity Status: Up in Chair;Nursing Notified;Instructed Patient to Reque st Assist with Mobility;Instructed Patient to Use Call Light(TABs alarm set) Comments: Verbal cues for sequencing, hand placement with transfers. Improved wi th repeated cueing. Multiple sit<>stand transfers throughout session from chair/toiler with contact guard to minimal assist. BALANCE: Sitting Balance: Static Sitting Balance;Dynamic Sitting Balance;Standby Assist Standing Balance: Static Standing Balance;Dynamic Standing Balance;Minimal Abelardo t GAIT: Gait Distance: 375 feet Gait: Assistance Level: Minimal Assist Gait: Assistive Device: Roller Walker Gait: Descriptors: Decreased foot clearance RLE;Decreased foot clearance LLE;For smallwood trunk flexion;Pace: Slow;Pathway deviations;Decreased knee extension in sta nce phase RLE;Decreased knee extension in stance phase LLE;Loss of balance;Varia ble step length Comments: Cues for increased step length, walker management, slowing gait speed, upright posture. Pt requires occasional assist for minor loss of balance. Activity Limited By: Weakness ACTIVITY/EXERCISE: Comments: Standing balance to pull up briefs, wash hands at sink with no UE supp ort, contact guard assist throughout. EDUCATION: Persons Educated: Patient Patient Barriers To Learning: Decreased Hearing Interventions: Family Education;Louder Voice Required Teaching Methods: Verbal Instruction;Demonstration Patient Response: More Instruction Required Topics: Plan/Goals of PT Interventions;Use of Assistive Device/Orthosis;Mobility Progression;Precautions;Safety Awareness;Importance of Increasing Activity ASSESSMENT/PROGRESS: Impaired Mobility Due To: Decreased Strength;Impaired Balance;Cognitive Deficits ;Safety Concerns;Decreased Activity Tolerance;Deconditioning Assessment/Progress: Should Improve w/ Continued PT;Awaiting Surgery Turning from your back to your side while in a flat bed without using bed rails: A Little Moving from lying on your back to sitting on the side of a flatbed without using bedrails : A Little Moving to and from a bed to a chair (including a wheelchair): A Little Standing up from a chair using your arms (e.g. wheelchair, or bedside chair): A Little To walk in hospital room: A Little Climbing 3-5 steps with a railing: A Lot Raw Score: 17 Standardized (T-scale) Score: 39.67 Basic Mobility CMS 0-100%: 43.83 CMS G Code Modifier for Basic Mobility: CK Pt demonstrates improvement with transfers, gait, activity tolerance this alison suggs GOALS: Goal Formulation: With Patient/Family Time For Goal Achievement: 4 days Patient Will Go Supine To/From Sit: Independently Patient Will Transfer Bed/Chair: Independently Patient Will Ambulate: Greater than 200 Feet, w/ Walker, w/ Stand By Assist Patient Will Go Up / Down Stairs: 3-5 Stairs, w/ Stand By Assist PLAN: Treatment Interventions: Mobility Training;Strengthening;Balance Activities;Coor dination Training;Endurance Training;Family Training Plan Frequency: 5 Days per Week PT Plan for Next Visit: Continue to progress gait weaning from roller walker, tr ial stairs as able, LE functional strengthening, repeated transfers RECOMMENDATIONS: Recommendation: Inpatient setting;Recommend rehab medicine consult Patient Currently Requires Physical Assist With: All mobility Therapist: Omar Betancourt PT, DPT Date: 03/31/2019 * Mario Pereyra MD - 03/31/2019 7:46 AM CDT Neurosurgery Progress Note Admission Date: 03/26/2019 LOS: 5 days S: NAEON, no complaints this AM, pain controlled O: Vital Signs: 24 Hour Range BP: (110-156)/(62-99) Temp: [36.1 C (97 F)-37.2 C (98.9 F)] Pulse: [43-116] Respirations: [10 PER MINUTE-16 PER MINUTE] SpO2: [91 %-100 %] O2 Delivery: None (Room Air) Physical Exam: Alert and oriented to person, place and time Following commands in all extremities 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 Please call [phone] with any questions. Mario Pereyra MD * Angelia Pitt RN - 03/31/2019 2:38 AM CDT Pt has been bradycardic into low 40s last two nights, has dropped to 39 bpm for 2-3 second intervals intermittently over the last half hour. Other VSS, asymptom atic, neurologically intact. On-call provider notified via Voalte. [facility]. [id number] On-call provider notified of above. No new orders at this time, per Dr. Gary avalos. [facility]. * Crystal Coombs RN - 03/30/2019 6:32 PM CDT Pt arrived back on unit via bed accompanied by staff. Focused assessment complet ed. Alert and oriented x4. Reporting no pain. Wounds clean, dry, and intact. Ord ers and post-IR protocol reviewed and implemented as appropriate. Up time 1920. Q1 hour vitals and site assessment x4 starting at 1820. Will continue to monitor and assess. * Greta Mccabe RN - 03/30/2019 4:03 PM CDT Sedation physician present in room. Recent vitals and patient condition reviewe d between sedating physician and nurse. Reassessment completed. Determination made to proceed with planned sedation. * Lorna Liz - 03/30/2019 10:28 AM CDT OCCUPATIONAL THERAPY PROGRESS & RE- ASSESSMENT NOTE Patient Name: Estrada Godoy Room/Bed: [place] [address] Admitting Diagnosis: Cerebral Aneurysm Mobility Progressive Mobility Level: Walk in hallway Distance Walked (feet): 200 ft Level of Assistance: Assist X1 Assistive Device: None Time Tolerated: 11-30 minutes Activity Limited By: Weakness Subjective Pertinent Dx per Physician: 84 y.o. 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 Precautions: Standard;Falls Pain / Complaints: Patient has no c/o pain;Patient agrees to participate in ther apy Comments: Pt in bed upon therapist arrival and positioned for comfort in chair w ith needs in reach and precautions in place upon therapist exit. Objective Psychosocial Status: Willing and Cooperative to Participate Persons Present: Physical Therapist;Spouse;Family Home Living Type of Home: House Home Layout: One Level;Stairs to Enter w/ Rails Bathroom Shower / Tub: Walk-in Shower Bathroom Toilet: Standard Bathroom Equipment: Shower Chair Home Equipment: Walker;Cane Prior Function Level Of [place]: Needed assistance with functional transfers Lives With: Spouse Receives Help From: Spouse Homemaking Assist: Total Assist Vocational: Retired Other Function Comments: In the past two weeks family has been assisting with fu nctional mobility. Independent with basic ADLs. Significant fall history. Vision Current Vision: Wears Glasses Only for Reading ADL's Where Assessed: Standing at Sink;Chair;Edge of Bed Eating Assist: Stand By Assist Eating Deficits: Setup Grooming Assist: Minimal Assist Grooming Deficits: Steadying;Verbal Cueing;Increased Time To Complete;Wash/Dry H ands(did not use soap) LE Dressing Assist: Moderate-Maximum Assist LE Dressing Deficits: Pull Up Over Hips;Setup;Steadying;Increased Time To Comple te;Thread LLE Into Pants;Thread RLE Into Pants Toileting Assist: Moderate Assist Toileting Deficits: Setup;Steadying(clothing management before & after) Functional Transfer Assist: Minimal Assist Functional Transfer Deficits: Steadying Comment: ADLs per above. Minimal assist to thread both feet into pants at EOB wi th minimal assist for dynamic sitting balance. Pt tied drawstring of pants with steadying assist in standing. Minimal assist for functional mobility with walker ; pt with poor walker management requiring consistent cueing for hand placement and walker safety. Minimal assist with moderate cues for toilet transfer. Pt com pleted liat care at seated level. Minimal assist for mobility without roller wal ker. Activity Tolerance Endurance: 3/5 Tolerates 25-30 Minutes Exercise w/Multiple Rests Sitting Balance: 4+/5 Moves/Returns Trunkal Midpoint 1-2 Inches in Multiple Plan es Cognition Overall Cognitive Status: Impaired Comprehension: Hard of Hearing Expression: (Difficult to differentiate sarcasm/behavioral/speech off tas) Problem Solving: Decreased Judgment/Safety Orientation: To Person(Refused to state name of place) Attention: Awake/Alert Education Persons Educated: Patient/Family Teaching Methods: Verbal Instruction Patient Response: Verbalized Understanding Topics: Role of OT, Goals for Therapy Goal Formulation: With Patient/Family Assessment Assessment: Decreased ADL Status;Decreased Safe/Judg during ADL;Decreased Endura nce;Decreased Self-Care Trans;Decreased High-Level ADLs Prognosis: Good;w/Cont OT s/p Acute Discharge Goal Formulation: Pt/family AM-PAC 6 Clicks Daily Activity Inpatient Putting on and taking off regular lower body clothes?: A Lot Bathing (Including washing, rinsing, drying): A Lot Toileting, which includes using toilet, bedpan, or urinal: A Lot Putting on and taking off regular upper body clothing: A Little Taking care of personal grooming such as brushing teeth: A Little Eating meals?: None Daily Activity Raw Score: 16 Standardized (t-scale) score: 35.96 CMS 0-100% Score: 53.32 CMS G Code Modifier: CK Plan OT Frequency: 5x/week OT Plan for Next Visit: Multi-step task, path-finding, dynamic balance, pants, t oileting ADL Goals Patient Will Perform Grooming: Standing at Sink;w/ Stand By Assist Patient Will Perform LE Dressing: In Chair;w/ Stand By Assist Patient Will Perform Toileting: w/ Stand By Assist Functional Transfer Goals Pt Will Perform All Functional Transfers: w/ Stand By Assist, w/ Good Judgment/S afety OT Discharge Recommendations Recommendation: Inpatient setting Patient Currently Requires Physical Assist With: All mobility, All personal care ADLs, All home functioning ADLs Therapist: SAMMY Cole/Angely [id number] Date: 03/30/2019 * Lora Castro APRN - 03/30/2019 10:17 AM CDT Neurosurgery Progress Note Admission Date: 03/26/2019 LOS: 4 days S: Resting this AM, able to wake. Family wasn't at bedside, return for visit lat er in AM family at bedside. Several questions answered. 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 male Active Problems: Aneurysm (HCC) NPH (normal pressure hydrocephalus) OR 03/29/19 Left [employer] OF [employer]IOLOGY shunt system placement Continue current care NPO for IR diagnostic angio-follow up to giant basilar aneurysm, IR team working on timing of pre-medication for contrast allergy. Anticipate angio later today. Cardiology consutled - no need to bridge his anticoagulation post operatively; sage benjamin restart Warfarin 3 weeks post op PT/OT-rehab planned at [facility]-will accept on Tuesday if medially ready Pain control Prophylaxis: A) GI: PPI B) Lines: No C) Urinary Catheter: No D) Antibiotic Usage: No E) VTE: Mechanical prophylaxis; Sequential compression device No anticoagulatio n until 48 hours post operative; contraindication due to bleeding risk F) Restraints: Patient assessed for need for restraints. Please call [phone] with any questions. Lora Castro APRN Pager [phone] or Voalte * Meghana Buckner, PT - 03/30/2019 10:09 AM CDT PHYSICAL THERAPY RE-EVALUATION / PROGRESS NOTE MOBILITY: Progressive Mobility Level: Walk in hallway Distance Walked (feet): 200 ft Level of Assistance: Assist X1 Assistive Device: None Time Tolerated: 11-30 minutes Activity Limited By: Weakness SUBJECTIVE: Significant hospital events: 84 y.o. male with PMHx significant for A.Fib on [facility], CAD s/p CABG and multiple coronary stents, AAA who presents to [facility] with CC of roughly a year worth of gait instability, urinary incontinence, and cognit hayden decline suggestive of normal pressure hydrocephalus. 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 OR 03/29/19 Left INSTRU[employer] OF SOCIOLOGY shunt system placeme nt. Mental / Cognitive Status: Alert;Oriented;Cooperative;Follows Commands Persons Present: Occupational Therapist;Spouse;Family Pain: Patient has no complaint of pain Pain Interventions: Patient agrees to participate in therapy;Patient assisted in to position of comfort Ambulation Assist: Assist Needed with Mobility-Related ADL's/Ambulation Patient Owned Equipment: Single Point Cane;Roller Walker Home Situation: Lives with Family Type of Home: House Entry Stairs: 1-2 Stairs;No Rail In-Home Stairs: 1-2 Stairs Comments: Recent history of falls ROM: UE ROM: WFL LE ROM: WFL STRENGTH: Overall Strength: Generalized Weakness POSTURE/NEURO: Head Control: Independent Posture: Forward Head;Rounded Shoulders BED MOBILITY/TRANSFERS: Bed Mobility: Supine to Sit: Minimal Assist;Head of Bed Elevated Transfer Type: Sit to Stand Transfer: Assistance Level: From;Bed;To/From;Toilet;Minimal Assist Transfer: Assistive Device: Roller Walker Transfers: Type Of Assistance: Verbal Cues;For Balance;For Strength Deficit;For Safety Considerations Other Transfer Type: Stand to Sit Other Transfer: Assistance Level: To;Bed Side Chair;Minimal Assist Other Transfer: Assistive Device: None Other Transfer: Type Of Assistance: For Balance;For Strength Deficit;For Safety Considerations End Of Activity Status: Up in Chair;Nursing Notified;Instructed Patient to Reque st Assist with Mobility;Instructed Patient to Use Call Light(TABs alarm set) BALANCE: Sitting Balance: Static Sitting Balance;Dynamic Sitting Balance;Standby Assist Standing Balance: Static Standing Balance;Dynamic Standing Balance;Minimal Abelardo t GAIT: Gait Distance: 200 feet Gait: Assistance Level: Minimal Assist Gait: Assistive Device: None Gait: Descriptors: Decreased foot clearance RLE;Decreased foot clearance LLE;For smallwood trunk flexion;Pace: Slow;Pathway deviations;Decreased knee extension in sta nce phase RLE;Decreased knee extension in stance phase LLE;Loss of balance;Varia ble step length Activity Limited By: Complaint of Fatigue;Weakness EDUCATION: Persons Educated: Patient Patient Barriers To Learning: Decreased Hearing Interventions: Family Education;Louder Voice Required Teaching Methods: Verbal Instruction;Demonstration Patient Response: More Instruction Required Topics: Plan/Goals of PT Interventions;Use of Assistive Device/Orthosis;Mobility Progression;Precautions;Safety Awareness;Importance of Increasing Activity ASSESSMENT/PROGRESS: Impaired Mobility Due To: Decreased Strength;Impaired Balance;Cognitive Deficits ;Safety Concerns;Decreased Activity Tolerance;Deconditioning Assessment/Progress: Should Improve w/ Continued PT;Awaiting Surgery Turning from your back to your side while in a flat bed without using bed rails: A Little Moving from lying on your back to sitting on the side of a flatbed without using bedrails : A Little Moving to and from a bed to a chair (including a wheelchair): A Little Standing up from a chair using your arms (e.g. wheelchair, or bedside chair): A Little To walk in hospital room: A Little Climbing 3-5 steps with a railing: A Lot Raw Score: 17 Standardized (T-scale) Score: 39.67 Basic Mobility CMS 0-100%: 43.83 CMS G Code Modifier for Basic Mobility: CK GOALS: Goal Formulation: With Patient/Family Time For Goal Achievement: 4 days Patient Will Go Supine To/From Sit: Independently Patient Will Transfer Bed/Chair: Independently Patient Will Ambulate: Greater than 200 Feet, w/ Walker, w/ Stand By Assist Patient Will Go Up / Down Stairs: 3-5 Stairs, w/ Stand By Assist PLAN: Treatment Interventions: Mobility Training;Strengthening;Balance Activities;Coor dination Training;Endurance Training;Family Training Plan Frequency: 5 Days per Week PT Plan for Next Visit: Continue to progress gait without roller walker, stairs training, dynamic balance RECOMMENDATIONS: PT Discharge Recommendation: Inpatient setting - Recommend rehab medicine consul t Patient Currently Requires Physical Assist With: All mobility Therapist: Meghana Buckner PT, DPT Date: 03/30/2019 * Darwin De La Rosa DO - 03/30/2019 9:46 AM CDT Physical Medicine & Rehabilitation Progress Note Today's Date: 03/30/2019 Admission Date: 03/26/2019 LOS: 4 days Insurance: Active Problems: Aneurysm (HCC) NPH (normal pressure hydrocephalus) Assessment/Plan: Estrada Godoy is a 84 y.o. male admitted to [facility] on 03/26/2019 with the following issues: Normal Pressure Hydrocephalus Impairments: communication deficits, loss of coordination, neurogenic bladder, p oor activity tolerance and weakness Activity Limitations: eating, grooming, bathing, dressing - upper, dressing - l ower, toileting, bladder control, transfers, ambulation, wheelchair, stairs, pro blem solving and memory Participation Restrictions: unable to return home safely Post-acute care rehabilitation needs: Patient likely has goals in at least two o ut of three therapeutic disciplines and medical complexity to warrant acute invt tient rehabilitation admission candidacy. Goals & Barriers Family / Patient Goals: return home with family supervision Mobility Goals: Overall goal is Modified independent Activities of Daily Living (ADLs) Goals: Overall goal is Modified independent Cognition / Communication Goals: Speech therapy will evaluate and treat cognitio n and communication deficits and assess for safe swallow Barriers: High burden of care and Medical complexity Facilitators: good home setup, controlled pain, good family / social support and patient motivation Rehabilitation Prognosis: Fair Tolerance for three hours of therapy a day: Aniyah De La Rosa DO Pager [phone] Subjective 84 y.o.malewith PMHx significant for A.Fib on warfarin, CAD s/p CABG and mul tiple coronary stents, AAA who presents to [facility] with CC of roughly a year worth of gait instability, urinary incontinence, and cognitive decline suggestive of n ormal pressure hydrocephalus. Of note patient has recently discovered large basi lar aneurysm. 03/29 IN[employer] OF SOCIOLOGY shunt placed by Gus. Post-operative RR called for sta ring episodes and AMS. CT Negative. Confusion resolved. Objective Vital Signs: Last Filed Vital Signs: 24 Justine r Range BP: 136/77 (03/30 806) Temp: 36.6 C (97.9 F) (03/30 806) Pulse: 54 (03/30 806) Respirations: 16 PER MINUTE (03/30 806) SpO2: 100 % (03/30 806) O2 Delivery: CPAP/BiPAP (Pt Owned) (03/30 806) SpO2 Pulse: 55 (03/29 1447) BP: (122-151)/(64-86) Temp: [36.4 C (97.5 F)-36.8 C (98.2 F)] Pulse: [50-75] Respirations: [13 PER MINUTE-18 PER MINUTE] SpO2: [92 %-100 %] O2 Delivery: CPAP/BiPAP (Pt Owned) Vitals: 03/27/19 0852 Weight: 95.3 kg (210 lb 1.6 oz) Intake/Output Summary: (Last 24 hours) Intake/Output Summary (Last 24 hours) at 03/30/2019 0946 Last data filed at 03/30/2019 0807 Gross per 24 hour Intake 1886 ml Output 160 ml Net 1726 ml Stool Occurrence: 0 Last Bowel Movement Date: 03/28/19(per pt) Lab: Results for orders placed or performed during the hospital encounter of 03/26/19 (from the past 24 hour(s)) POC GLUCOSE Collection Time: 03/29/19 4:43 PM # # Low-High Glucose, POC 141 (H) 70 - 100 MG/DL BASIC METABOLIC PANEL Collection Time: 03/30/19 4:25 AM # # Low-High Sodium 138 137 - 147 MMOL/L Potassium 4.2 3.5 - 5.1 MMOL/L Chloride 108 98 - 110 MMOL/L CO2 22 21 - 30 MMOL/L Anion Gap 8 3 - 12 Glucose 113 (H) 70 - 100 MG/DL Blood Urea Nitrogen 19 7 - 25 MG/DL Creatinine 1.06 0.4 - 1.24 MG/DL Calcium 9.0 8.5 - 10.6 MG/DL eGFR Non >60 >60 mL/min eGFR >60 >60 mL/min CBC AND DIFF Collection Time: 03/30/19 4:25 AM # # Low-High White Blood Cells 8.1 4.5 - 11.0 K/UL RBC 3.94 (L) 4.4 - 5.5 M/UL Hemoglobin 12.1 (L) 13.5 - 16.5 GM/DL Hematocrit 34.7 (L) 40 - 50 % MCV 88.2 80 - 100 FL MCH 30.8 26 - 34 PG MCHC 34.9 32.0 - 36.0 G/DL RDW 14.5 11 - 15 % Platelet Count 179 150 - 400 K/UL MPV 8.5 7 - 11 FL Neutrophils 80 (H) 41 - 77 % Lymphocytes 14 (L) 24 - 44 % Monocytes 6 4 - 12 % Eosinophils 0 0 - 5 % Basophils 0 0 - 2 % Absolute Neutrophil Count 6.50 1.8 - 7.0 K/UL Absolute Lymph Count 1.20 1.0 - 4.8 K/UL Absolute Monocyte Count 0.50 0 - 0.80 K/UL Absolute Eosinophil Count 0.00 0 - 0.45 K/UL Absolute Basophil Count 0.00 0 - 0.20 K/UL Physical Exam VS: BP 136/77 (BP Source: Arm, Right Upper) | Pulse 54 | Temp 36.6 C (97.9 F) | Ht 182.9 cm (72") | Wt 95.3 kg (210 lb 1.6 oz) | SpO2 100% | BMI 28.49 kg/m General: No acute distress, family x 2 present Head: Non-traumatic Eyes: without scleral icterus, extra ocular movements intact ENT: moist mucous membranes Chest: adequate peripheral perfusion without cyanosis Lungs: not in respiratory distress, no accessory muscle use Abdomen: non-distended Skin: warm and dry Extremities: without clubbing or cyanosis MS: Root Right Left Shoulder Abduction C5 5 5 Elbow Flexion C5 5 5 Elbow Extension C7 5 5 Wrist Extension C6 5 5 Finger Flexion C8 5 5 Finger Abduction T1 5 5 Hip Flexion L2 5 5 Knee Flexion L5/S1 Knee Extension L3 5 5 Dorsiflexion L4 5 5 Plantarflexion S1 5 5 EHL Extension L5 Neuro: Hard of hearing Follows one and step commands Interactive and participatory H2S impaired bilaterally Therapy Notes & Labs Reviewed. Darwin De La Rosa, Pager [phone] Associated attestation - Jesus Howell MD - 03/31/2019 5:42 PM CDT Rehabilitation Medicine Attending Physician Attestation: I personally performed dey portions of the history and exam. I discussed the jay e with the resident and agree with the resident's documentation of history, phys ical assessment and treatment plan unless otherwise noted. Thank you for allowing us to participate in the care of this patient. Jesus Howell MD 03/31/2019 5:42 PM Attending physician * Angelia Pitt RN - 03/30/2019 5:31 AM CDT HR sustains in low 40s, other VSS, asymptomatic. Pt easily rouses, neurologicall y intact. INFORMATION SECURITY RISK ANALYST Lora Castro notified of above. No new orders at this time. WCTM. * Zoe Suggs RN - 03/29/2019 5:00 PM CDT This RN and aide assisted pt down to CT. This RN stayed with pt until pt brought back upstairs. * Zoe Suggs RN - 03/29/2019 4:35 PM CDT During assessment on pt this RN noticed pt staring off. Per pt's daughter this w as new, and pt reporting "you're poisoning me" with the pears pt's daughter was feeding him. Pt appeared to be joking, but kept staring off and took several sec onds to gain pt's attention. This RN called and rapid response. Refer to GIS MAPPING TECHNICIAN not e for further details. * Merline Meneses RN - 03/29/2019 3:02 PM CDT Pt transported back to inpatient room via bed on cutter operator helper by RN and HCT . * Lora Castro APRN - 03/29/2019 12:52 PM CDT Neurosurgery Progress Note Admission Date: 03/26/2019 LOS: 3 days S: No acute events noted. Seen this AM. Family at bedside, all are ready for duane nt placement today. Discussed possible rehab placement tomorrow. 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 male Active Problems: Aneurysm (HCC) NPH (normal pressure hydrocephalus) Continue current care NPO for OR Cardiology consutled - no need to bridge his anticoagulation post operatively; sage benjamin restart Warfarin 3 weeks post op PT/OT Pain control Rehab consulted Plan for INSTRU[employer] OF SOCIOLOGY shunt placement today, needs this placed prior to complex treatment of giant basilar aneurysm. Patient will then need to complete his rehabilitation before going forward with intervention, patient and family in agreement with pl bette. Prophylaxis: A) GI: PPI B) Lines: No C) Urinary Catheter: No D) Antibiotic Usage: No E) VTE: Mechanical prophylaxis; Sequential compression device sq heparin held f or OR today F) Restraints: Patient assessed for need for restraints. Please call [phone] with any questions. Lora Castro APRN Pager [phone] or Voalte * Rachelle Aly RN - 03/29/2019 11:56 AM CDT CPAP in locker 49. #[phone] * Cristofer Greenfield - 03/29/2019 9:53 AM CDT Reason for Visit: Follow up visit, Mindy/Jew: Alevism, Source of Purpose/Meaning: Patient is getting ready To go for the procedure, w ell supported by the family, patients looked relaxed but family seemed very anx ious, provided postoral support, Worries/Concerns/Struggles: Method(s) of Coping: Support System: Interventions/Plan: * Alie Joya RN - 03/29/2019 4:39 AM CDT Shift: pt slept well overnight Pain: pt denies any pain Nutrition: adequate. Pt currently NPO for surgery. GI/: Voids adequately. No N/V/D. LBM 03/26 Activity: Pt can be impulsive when getting up to use the bathroom. Family: Numerous family left for the evening. Last Shower: 03/28 evening New Events or Follow-up: Pt INSTRUCTOR OF SOCIOLOGY shunt placement today. Type and cross completed. Pt extremely hard of hearing. * Maday Leiva RN - 03/28/2019 8:47 PM CDT Labs obtained and labeled at bedside. * Alie Joya RN - 03/28/2019 8:43 PM CDT Pt hard draw per IV therapy. Dehydrated. . Dr. Murillo notified. Fluids ordered @5 0/hr. Will ctm * Meghann Lambert, IKE - 03/28/2019 7:29 PM CDT Labs drawn with US Guidance. Patient tolerated well. * Cristofer Greenfield - 03/28/2019 3:47 PM CDT Reason for Visit: Request from his daughter, Mindy/Jew: Alevism, Source of Purpose/Meaning: Patient is well supported by the family, and hansa reynoso, having surgery tomorrow, seemed relaxed and praying for divine interventi on and successful surgery and speedy recovery, offered prayer, patient received anointing, Worries/Concerns/Struggles: Method(s) of Coping: Support System: Interventions/Plan: * Meghana Clarke - 03/28/2019 3:44 PM CDT PHYSICAL THERAPY PROGRESS NOTE MOBILITY: Progressive Mobility Level: Walk in hallway Distance Walked (feet): 150 ft(x2) Level of Assistance: Assist X1 Assistive Device: Walker Time Tolerated: 11-30 minutes Activity Limited By: Weakness SUBJECTIVE: Significant hospital events: 84 y.o. male with PMHx significant for A.Fib on , CAD s/p CABG and multiple coronary stents, AAA who presents to [facility] with CC of roughly a year worth of gait instability, urinary incontinence, and cognit hayden decline suggestive of normal pressure hydrocephalus. 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 Mental / Cognitive Status: Alert;Oriented;Cooperative;Follows Commands Persons Present: Daughter;Spouse;Physical Therapist Pain: Patient has no complaint of pain Ambulation Assist: Assist Needed with Mobility-Related ADL's/Ambulation Patient Owned Equipment: Single Point Cane;Roller Walker Home Situation: Lives with Family Type of Home: House Entry Stairs: 1-2 Stairs;No Rail In-Home Stairs: 1-2 Stairs BED MOBILITY/TRANSFERS: Bed Mobility: Supine to Sit: Standby Assist;Head of Bed Elevated Transfer Type: Sit to/from Stand Transfer: Assistance Level: To/From;Bed;Minimal Assist(CGA) Transfer: Assistive Device: Roller Walker Transfers: Type Of Assistance: Verbal Cues;For Balance;For Strength Deficit;For Safety Considerations End Of Activity Status: In Bed;Nursing Notified;Instructed Patient to Request As sist with Mobility;Instructed Patient to Use Call Light Comments: Pt demonstrates improvement with stand to sit transfer and use of UE r each for bed/chair. BALANCE: Sitting Balance: Static Sitting Balance;Dynamic Sitting Balance;No UE Support;St andby Assist Standing Balance: Static Standing Balance;Dynamic Standing Balance;No UE support ;Minimal Assist(CGA) GAIT: Gait Distance: 150 feet(x2) Gait: Assistance Level: Minimal Assist(CGA) Gait: Assistive Device: Roller Walker Gait: Descriptors: Decreased foot clearance RLE;Decreased foot clearance LLE;For smallwood trunk flexion;Pace: Slow;Pathway deviations;Decreased knee extension in sta nce phase RLE;Decreased knee extension in stance phase LLE;Loss of balance;Varia ble step length Comments: Patient demonstrates short step lengths with shuffling gait and poor c adence control. Max verbal cueing for consistent yanelis and step length. Use of music for managing yanelis. Stairs: Number Climbed: 3 Stairs: Descriptors: Ascend;Reciprocal;Descend;Non-Reciprocal Stairs: Assistance Level: Minimal Assist;x2 People Stairs: Assistive Device: Two Rails Activity Limited By: Complaint of Fatigue;Weakness Comments: Educated patient to move close to stairs and use of hand rail before b eginning ascending steps. Pt demonstrated understanding. ACTIVITY/EXERCISE: Comments: Patient completed 10 sit to stands with Bettye and verbal cueing on prop er control with descent into seated position. Educated patient to stay within wa lker, use tactile cues of bed/chair against back of knees, and use of UE backwar d reach before sitting down. Pt required demonstration and verbal cueing for fir st few attempts. Pt demonstrated proper technique 3x without assistance or cuein g. Patient tolerated 5 minutes of Nustep on level 12 and had no complaints of fa tigue or weakness. EDUCATION: Persons Educated: Patient Patient Barriers To Learning: Cognitive Deficits Interventions: Family Education Teaching Methods: Verbal Instruction;Demonstration Patient Response: More Instruction Required Topics: Plan/Goals of PT Interventions;Use of Assistive Device/Orthosis;Mobility Progression;Precautions;Safety Awareness;Importance of Increasing Activity ASSESSMENT/PROGRESS: Impaired Mobility Due To: Decreased Strength;Impaired Balance;Cognitive Deficits ;Safety Concerns;Decreased Activity Tolerance;Deconditioning Assessment/Progress: Should Improve w/ Continued PT;Awaiting Surgery Comments: Patient tolerated treatment well but remains with max cueing for fern ce control and symmetrical step length. Pt educated on proper sitting techniques with roller walker and able to complete 3x without assistance or cueing. Attemp marixa to use music for auditory feedback to address yanelis deficits; minimal impr ovements noted. Turning from your back to your side while in a flat bed without using bed rails: A Little Moving from lying on your back to sitting on the side of a flatbed without using bedrails : A Little Moving to and from a bed to a chair (including a wheelchair): A Little Standing up from a chair using your arms (e.g. wheelchair, or bedside chair): A Little To walk in hospital room: A Lot Climbing 3-5 steps with a railing: A Lot Raw Score: 16 Standardized (T-scale) Score: 38.32 Basic Mobility CMS 0-100%: 47.12 CMS G Code Modifier for Basic Mobility: CK GOALS: Goal Formulation: With Patient/Family Time For Goal Achievement: 4 days Patient Will Go Supine To/From Sit: Independently Patient Will Transfer Bed/Chair: Independently Patient Will Ambulate: Greater than 200 Feet, w/ Walker, w/ Stand By Assist Patient Will Go Up / Down Stairs: 3-5 Stairs, w/ Stand By Assist PLAN: Treatment Interventions: Mobility Training;Strengthening;Balance Activities;Coor dination Training;Endurance Training;Family Training Plan Frequency: 5 Days per Week PT Plan for Next Visit: Improve standing dynamic balance, UE/LE circuit for stre ngth deficits RECOMMENDATIONS: Recommendation: Inpatient setting;Recommend rehab medicine consult Patient Currently Requires Physical Assist With: All mobility Therapist: JOHNNY Christine Date: 03/28/2019 Associated attestation - Paris Elizondo, PT - 03/28/2019 4:10 PM CDT I was present and involved in directing the care of the patient throughout the p hysical therapy session. * Noelle Castillo, SHAHBAZ - 03/28/2019 2:36 PM CDT OCCUPATIONAL THERAPY PROGRESS NOTE Patient Name: Estrada Godoy Room/Bed: EX8849/01 Admitting Diagnosis: Cerebral Aneurysm Mobility Progressive Mobility Level: Walk laps Distance Walked (feet): 620 ft Level of Assistance: Assist X1 Assistive Device: Walker Time Tolerated: 11-30 minutes Activity Limited By: Weakness Subjective Pertinent Dx per Physician: 84 y.o. 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 Precautions: Standard;Falls Pain / Complaints: Patient has no c/o pain;Patient agrees to participate in ther apy Comments: Patient supine in bed upon OT arrival and agreeable to treatment. At end of session, patient returned to supine, bed alarm engaged, call light in val ch, and all needs met. Objective Psychosocial Status: Willing and Cooperative to Participate Persons Present: Daughter;Spouse;RehabTechnician Home Living Type of Home: House Home Layout: One Level;Stairs to Enter w/ Rails Bathroom Shower / Tub: Walk-in Shower Bathroom Toilet: Standard Bathroom Equipment: Shower Chair Home Equipment: Walker;Cane Prior Function Level Of [place]: Needed assistance with functional transfers Lives With: Spouse Receives Help From: Spouse Homemaking Assist: Total Assist Vocational: Retired Other Function Comments: In the past two weeks family has been assisting with fu nctional mobility. Independent with basic ADLs. Significant fall history. Vision Current Vision: Wears Glasses Only for Reading ADL's Eating Assist: Stand By Assist Eating Deficits: Setup Grooming Assist: Minimal Assist Grooming Deficits: Steadying LE Dressing Assist: Minimal Assist LE Dressing Deficits: Steadying Toileting Assist: Minimal Assist Toileting Deficits: Steadying Functional Transfer Assist: Minimal Assist Functional Transfer Deficits: Steadying Comment: Patient completes ADLs as noted above and ambulates with use of roller walker with contact guard assistance. Patient ascends and descends with contact guard assistance and use of roller walker. Patient demonstrates decreased safe ty awareness on stairs. Activity Tolerance Endurance: 4/5 Tolerates 30+ Minutes Exercise W/O Fatigue Sitting Balance: 4+/5 Moves/Returns Trunkal Midpoint 1-2 Inches in Multiple Plan es Cognition Overall Cognitive Status: WFL to Adequately Complete Self Care Tasks Safely Social Interaction: Increased Time to Adjust Problem Solving: Decreased Judgment/Safety Attention: Awake/Alert Cognition Comment: SENECA. Poor insight into deficits. Assessment Assessment: Decreased ADL Status;Decreased Safe/Judg during ADL;Decreased Endura nce;Decreased Self-Care Trans;Decreased High-Level ADLs Prognosis: Good;w/Cont OT s/p Acute Discharge Goal Formulation: Pt/family AM-PAC 6 Clicks Daily Activity Inpatient Putting on and taking off regular lower body clothes?: A Little Bathing (Including washing, rinsing, drying): A Little Toileting, which includes using toilet, bedpan, or urinal: A Little Putting on and taking off regular upper body clothing: A Little Taking care of personal grooming such as brushing teeth: A Little Eating meals?: A Little Daily Activity Raw Score: 18 Standardized (t-scale) score: 38.66 CMS 0-100% Score: 46.65 CMS G Code Modifier: CK Plan OT Frequency: 5x/week OT Plan for Next Visit: Sink level ADLs, safety awareness, high level balance, t oileting ADL Goals Patient Will Perform Grooming: Standing at Sink;w/ Stand By Assist Patient Will Perform LE Dressing: In Chair;w/ Stand By Assist Patient Will Perform Toileting: w/ Stand By Assist Functional Transfer Goals Pt Will Perform All Functional Transfers: w/ Stand By Assist, w/ Good Judgment/S afety OT Discharge Recommendations Recommendation: Inpatient setting, Recommend rehab medicine consult Patient Currently Requires Physical Assist With: All mobility, All personal care ADLs, All home functioning ADLs Patient would likely be best served in an inpatient setting at discharge to incr ease functional independence with ADLs and safety awareness as patient is a high fall risk and has poor insight into deficits. However, if patient and family w ished to return home post acute stay, this would be a safe discharge plan with c onsistent supervision for all ADLs and mobility with outpatient therapy. Therapist: YOLANDA Goins/Angely [id number] Date: 03/28/2019 * Valery Mccall APRN - 03/28/2019 1:10 PM CDT Neurosurgery Progress Note Admission Date: 03/26/2019 LOS: 2 days S: No acute events noted. Seen this AM. O: Vital Signs: 24 Hour Range BP: (123-136)/(71-83) Temp: [36.3 C (97.4 F)-36.7 C (98 F)] Pulse: [55-74] Respirations: [18 PER MINUTE] SpO2: [93 %-97 %] O2 Delivery: CPAP/BiPAP (Pt Owned) Physical Exam: Alert and oriented to person, place and time Following commands in all extremities A/P: 84 y.o. male Active Problems: Aneurysm (HCC) NPH (normal pressure hydrocephalus) Continue current care Cardiology consutled - no need to bridge his anticoagulation post operatively; sage benjamin restart Warfarin 3 weeks post op PT/OT Pain control Rehab consulted Plan for [employer] shunt placement on tomorrow Prophylaxis: A) GI: PPI B) Lines: No C) Urinary Catheter: No D) Antibiotic Usage: No E) VTE: Mechanical prophylaxis; Sequential compression device F) Restraints: Patient assessed for need for restraints. Please call [phone] with any questions. Valery Mccall APRN Pager [phone] or Voalte * Arsh Alvarez MD - 03/28/2019 12:12 PM CDT Cardiology staff progress note Patient seen for preop clearance for atrial fibrillation, anticoagulation, and h is coronary disease Does not have ischemia on recent stress test from last month Last angiogram a year ago showed no significant coronary disease He has atrial fibrillation currently treated with amiodarone and anticoagulation with warfarin Has been in sinus rhythm since he came to the hospital. He is off of warfarin for surgery. We do not need to bridge his anticoagulation since he does not have atrial fibrillation at this time. He needs to remain off of anticoagulation for 2 weeks after his shunt placement. Since he is in normal sinus rhythm this does not represent significant risk to the patient We will need to notify the family physician to resume the warfarin to [address] discharge No active cardiac issues. We will sign off. Please call if further problems develop Arsh Alvarez MD * Valery Mccall APRN - 03/27/2019 2:35 PM CDT Neurosurgery Progress Note Admission Date: 03/26/2019 LOS: 1 day S: No acute events noted. Seen this AM. O: Vital Signs: 24 Hour Range BP: (114-140)/(71-82) Temp: [36.4 C (97.5 F)-37 C (98.6 F)] Pulse: [55-66] Respirations: [16 PER MINUTE-19 PER MINUTE] SpO2: [93 %-97 %] O2 Delivery: None (Room Air) Physical Exam: Alert and oriented to person, place and time Following commands in all extremities A/P: 84 y.o. male Active Problems: Aneurysm (HCC) NPH (normal pressure hydrocephalus) Continue current care Medicine consulted Cardiology consutled - DC Warfarin, obtain echocardiogram, PT/OT Pain control Rehab consulted Plan for [employer] shunt placement on March 29. Prophylaxis: A) GI: PPI B) Lines: No C) Urinary Catheter: No D) Antibiotic Usage: No E) VTE: Mechanical prophylaxis; Sequential compression device F) Restraints: Patient assessed for need for restraints. Please call [phone] with any questions. Valery Mccall APRN Pager [phone] or Voalte * Meghana Clarke - 03/27/2019 2:34 PM CDT PHYSICAL THERAPY PROGRESS NOTE MOBILITY: Progressive Mobility Level: Walk in hallway Distance Walked (feet): 200 ft Level of Assistance: Assist X1 Assistive Device: Walker Time Tolerated: 11-30 minutes Activity Limited By: Weakness;Fatigue SUBJECTIVE: Significant hospital events: 84 y.o. male with PMHx significant for A.Fib on war farin, CAD s/p CABG and multiple coronary stents, AAA who presents to [facility] with CC of roughly a year worth of gait instability, urinary incontinence, and cognit hayden decline suggestive of normal pressure hydrocephalus. 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 Mental / Cognitive Status: Alert;Oriented;Cooperative;Follows Commands Persons Present: Physical Therapist Pain: Patient has no complaint of pain Ambulation Assist: Assist Needed with Mobility-Related ADL's/Ambulation Patient Owned Equipment: Single Point Cane;Roller Walker Home Situation: Lives with Family Type of Home: House Entry Stairs: 1-2 Stairs;No Rail In-Home Stairs: 1-2 Stairs BED MOBILITY/TRANSFERS: Bed Mobility: Rolling: Minimal Assist Bed Mobility: Supine to Sit: Minimal Assist;Assist with Trunk;Assist with B LE Transfer Type: Sit to/from Stand Transfer: Assistance Level: To/From;Bed;Minimal Assist Transfer: Assistive Device: Roller Walker Transfers: Type Of Assistance: Verbal Cues;For Balance;For Strength Deficit;For Safety Considerations End Of Activity Status: In Bed;Nursing Notified;Instructed Patient to Request As sist with Mobility;Instructed Patient to Use Call Light Comments: Pt requires verbal cueing and demonstration on safe transfer to sittin g postition. Pt attempts to sit before complete turn and lacks use of hands for descent. BALANCE: Sitting Balance: Static Sitting Balance;Dynamic Sitting Balance;No UE Support;Mi nimal Assist Standing Balance: Static Standing Balance;Dynamic Standing Balance;2 UE support; Minimal Assist GAIT: Gait Distance: 200 feet Gait: Assistance Level: Minimal Assist Gait: Assistive Device: Roller Walker Gait: Descriptors: Decreased foot clearance RLE;Decreased foot clearance LLE;For [place] trunk flexion;Pace: Slow;Pathway deviations;Decreased knee extension in sta nce phase RLE;Decreased knee extension in stance phase LLE;Loss of balance;Varia ble step length Comments: Patient continues to demonstrate inability to control yanelis and freq uently requires verbal cueing for maintaining consistent pace. ACTIVITY/EXERCISE: Comments: Pt completed 10 sit to stands with Bettye and verbal cueing for forward trunk translation and controlling decent into seated position. Able to perform a nother set of 10 sit to stands while holding blue ball and Bettye. Requires consis tent cueing for trunk tranlsation and slow controlled movement. Pt also complete d multiple trials of coordinated cone tapping with BLE from 2UE support to no UE support. Patient required Bettye to modA x2 through progression. Pt tolerated 5 m inutes of Nustep on level 10. EDUCATION: Persons Educated: Patient Patient Barriers To Learning: Cognitive Deficits Interventions: Family Education Teaching Methods: Verbal Instruction;Demonstration Patient Response: More Instruction Required Topics: Plan/Goals of PT Interventions;Use of Assistive Device/Orthosis;Mobility Progression;Precautions;Safety Awareness;Importance of Increasing Activity ASSESSMENT/PROGRESS: Impaired Mobility Due To: Decreased Strength;Impaired Balance;Cognitive Deficits ;Safety Concerns;Decreased Activity Tolerance;Deconditioning Assessment/Progress: Should Improve w/ Continued PT;Awaiting Surgery Comments: Patient demonstrated improvements with balance and fatigue since last treatment but still remains with safety concerns with stand to sit. Patient educ ated on proper technique to sit with use of UE for support and controlled moveme nt. Pt tolerated Nustep well and no complaints of fatigue. Turning from your back to your side while in a flat bed without using bed rails: A Little Moving from lying on your back to sitting on the side of a flatbed without using bedrails : A Little Moving to and from a bed to a chair (including a wheelchair): A Lot Standing up from a chair using your arms (e.g. wheelchair, or bedside chair): A Little To walk in hospital room: A Lot Climbing 3-5 steps with a railing: A Lot Raw Score: 15 Standardized (T-scale) Score: 36.97 Basic Mobility CMS 0-100%: 50.4 CMS G Code Modifier for Basic Mobility: CK GOALS: Goal Formulation: With Patient/Family Time For Goal Achievement: 4 days Patient Will Go Supine To/From Sit: Independently Patient Will Transfer Bed/Chair: Independently Patient Will Ambulate: Greater than 200 Feet, w/ Walker, w/ Stand By Assist Patient Will Go Up / Down Stairs: 3-5 Stairs, w/ Stand By Assist PLAN: Treatment Interventions: Mobility Training;Strengthening;Balance Activities;Coor dination Training;Endurance Training;Family Training Plan Frequency: 5 Days per Week PT Plan for Next Visit: Stair training, progress nustep for generalized strength ening, retest sit to stand with roller walker RECOMMENDATIONS: Recommendation: Inpatient setting Therapist: Meghana Clarke, SPT Date: 03/27/2019 Associated attestation - Paris Elizondo, PT - 03/27/2019 4:13 PM CDT I was present and involved in directing the care of the patient throughout the p hysical therapy session. * Arsh Alvarez MD - 03/27/2019 10:04 AM CDT Staff Cardiology Progress Note Admission Date: 03/26/2019 Today's Date: 03/27/2019 LOS: 1 day Assessment & Plan Estrada Godoy is a 84 y.o. patient with the following problems: Active Problems: * No active hospital problems. * Assessment 1. Preop cardiovascular evaluation -Known coronary disease with multiple stents and intervention -No angina, heart failure, previous infarct -Mild LV dysfunction without evidence of heart failure patient is intermediate r isk for cardiovascular indications for surgery. This is due to his multiple pre -existing problems. He does not require any further testing at this point. -He will be at increased risk for paroxysmal atrial fibrillation 2. Paroxysmal atrial fibrillation -Currently controlled with amiodarone and maintained on warfarin -Anticoagulation can safely be withheld for surgery -Do not need to bridge with heparin since he remains in sinus rhythm at this khadar e -Please if he develops into fibrillation will need to place on parenteral antico agulation and restart warfarin 3. Coronary artery disease. -History of multiple intervention with 10 stents and 5 balloon angioplasties for the last 15 years -Last angiogram January 2018-LM, LAD, LCx, OMB is "patent". D1 and RCA 50%. No h igh-grade disease. -03/04 regadenoson Myoview sestamibi MPI negative for sichemia. -Patient does not currently have active ischemic heart disease -Low risk for ischemic complications for surgery. Low risk for MO 4. Normal pressure hydrocephalus/ Basal aneurism. -Anticipated [employer] shunt soon -Followed by treatment of aneurysm 5. Ascending thoracic aortic dissection -Treated medically -4.4 cm ascending aorta -No aortic regurgitation 6. Abdominal aortic aneurysm post endograft -Ultrasound 2 months ago she was repaired aneurysm with no endoleak 7. Ischemic cardiomyopathy -Ejection at 45% in the past -Echo last month read as 'probably normal EF' -We will repeat echocardiogram 8. CKD stage III Recommendations 1. May be off of warfarin for the procedure. Do not need to bridge as long as he does not have recurrence of atrial fibrillation. If atrial fibrillation recu rs we will need to discuss treatment plan. 2. Nurse practitioner tells me that he may need to be off warfarin for 2 weeks post procedure. As long as he remains in normal sinus rhythm this is not increa sed risk. 3. Echocardiogram pending 4. INR still 2.3 today. We can give small dose of vitamin K to assist with INR returned to normal. Suggest 5 mg sq x 1. INR may take 1-2 days to come down. 5. Will follow Arsh Alvarez MD Subjective Chief complaint: Cardiovascular consult to evaluate cardiac risk for surgery and make recommendations regarding anticoagulation HPI: 84 yo male with a history of coronary disease with 10 previous interventio ns, ascending thoracic aortic dissection, abdominal aortic aneurysm post endogra ft, paroxysmal atrial fibrillation on anticoagulation and amiodarone, heart fail ure with reduced ejection fraction in the past with EF returned to normal, CKD, COPD, hearing loss with cochlear implant, sleep apnea on CPAP. The patient's last angiogram was a year ago in January. At that time he had a 50% stenosis in his RCA. Left main, LAD, LCx and OMB's were "patent" I am not able to review the films directly. It appears to be neurovascular is. In January 2019 he underwent a regadenoson Myoview SPECT MPI. The study was negative. Ejection fraction is normal there is no ischemia. We therefore believe that he does not have any ischemic heart disease He remains in sinus rhythm during his entire hospitalization. He is anticoagul ated with warfarin for his paroxysmal fibrillation. He needs to be off of antic oagulation for surgery. As long as he remains in sinus rhythm we can stop the warfarin and not be concer alexsander bridging. If he does develop it fibrillation again we will need to place hi m on heparin. Postoperatively he will need to be off anticoagulation for a shor t period of time. Again as long as he remains in sinus rhythm this is not a con cern. Medications Scheduled Meds: allopurinol (ZYLOPRIM) tablet 100 mg 100 mg Oral QDAY amiodarone (CORDARONE) tablet 200 mg 200 mg Oral TID atorvastatin (LIPITOR) tablet 40 mg 40 mg Oral QDAY cholecalciferol (VITAMIN D-3) tablet 1,000 Units 1,000 Units Oral QDAY citalopram (CELEXA) tablet 40 mg 40 mg Oral QDAY docusate (COLACE) capsule 100 mg 100 mg Oral BID heparin (porcine) PF syringe 5,000 Units 5,000 Units Subcutaneous Q8H losartan (COZAAR) tablet 50 mg 50 mg Oral QDAY melatonin tablet 5 mg 5 mg Oral QHS milk of magnesia (CONC) oral suspension 10 mL 10 mL Oral QDAY pantoprazole DR (PROTONIX) tablet 40 mg 40 mg Oral QDAY rOPINIRole (REQUIP) tablet 0.25 mg 0.25 mg Oral QHS senna (SENOKOT) tablet 1 tablet 1 tablet Oral BID spironolactone (ALDACTONE) tablet 25 mg 25 mg Oral QDAY tamsulosin (FLOMAX) capsule 0.4 mg 0.4 mg Oral QDAY Continuous Infusions: PRN and Respiratory Meds:acetaminophen Q6H PRN, bisacodyl QDAY PRN, ondansetron (ZOFRAN) IV Q6H PRN Objective Vital Signs: Last Filed Vital Signs: 24 Justine r Range BP: 140/82 (03/27 852) Temp: 37 C (98.6 F) (03/27 852) Pulse: 55 (03/27 852) Respirations: 18 PER MINUTE (03/27 852) SpO2: 97 % (03/27 852) O2 Delivery: None (Room Air) (03/27 852) Height: 182.9 cm (6') (03/26 1020) BP: (114-140)/(71-85) Temp: [36.4 C (97.5 F)-37 C (98.6 F)] Pulse: [55-69] Respirations: [16 PER MINUTE-19 PER MINUTE] SpO2: [94 %-97 %] O2 Delivery: None (Room Air) There were no vitals filed for this visit. Intake/Output Summary: (Last 24 hours) Intake/Output Summary (Last 24 hours) at 03/27/2019 1004 Last data filed at 03/27/2019 0853 Gross per 24 hour Intake 10 ml Output 200 ml Net -190 ml Physical Exam General Appearance: no acute distress, sleepy this am Skin: warm, moist HEENT: unremarkable Neck Veins: neck veins are not distended Carotid Arteries: normal carotid upstroke bilaterally, no bruits Chest Inspection: chest is normal in appearance Auscultation/Percussion: lungs clear to auscultation, no rales, rhonchi, or whee zing Cardiac Rhythm: regular rhythm and normal rate Cardiac Auscultation: Normal S1 & S2, no S3 or S4, no rub Murmurs: no cardiac murmurs Extremities: no lower extremity edema; 2+ symmetric distal pulses Abdominal Exam: soft, non-tender, no masses, bowel sounds normal Liver & Spleen: no organomegaly Lab Reviewed Arsh Alvarez MD * Radha Bazan RN - 03/26/2019 10:22 PM CDT Pt informed this RN, that pt have not slept in two day, and requested that pt have something to help him sleep. Dr Dawson informed, see MAR for new order. Will cont to gabe. * Kelin Mills RN - 03/26/2019 5:28 PM CDT Concern for desaturation related to history of COPD. * Kelin Mills RN - 03/26/2019 4:59 PM CDT Information regarding different doctors (provided by patient's ). [facility] 1999 - 2018 Dr. Christian Campa : [phone] DEANN Goff : [phone] (May contact to receive information regarding Dr. Campa, or to help get ahold of him.) PCP Dr. Lesley Butcher : [phone] Dr. Chase Kaur : [phone] (Facilitated last heart catheretization in Jan.) [facility] - Dr. Bhavin Delcid : Phone/ . (Hear t monitor for afib.) [facility]iology Dr. Bonds : [phone] : [address], [place] (chemical Stress Test, Echo.) RN filled out Obtain Information forms for Natasha Linn, Romina Bonds to obtain the specified records. Will fax records request tomorrow when their offices are open. * Jacob Cruzne, OT - 03/26/2019 3:14 PM CDT OCCUPATIONAL THERAPY ASSESSMENT NOTE Patient Name: Estrada Godoy Room/Bed: [id number] Admitting Diagnosis: Cerebral Aneurysm Mobility Progressive Mobility Level: Walk in hallway Distance Walked (feet): 200 ft Level of Assistance: Assist X1 Assistive Device: Walker Time Tolerated: 11-30 minutes Activity Limited By: Weakness;Fatigue Subjective Pertinent Dx per Physician: 84 y.o. 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 Precautions: Standard;Falls Pain / Complaints: Patient has no c/o pain;Patient agrees to participate in ther apy Pain Level Current: No pain Comments: Pt supine in bed at start of therapy, left seated in chair with needs addressed, call light within reach, TABS alert set, and RN notified of status. Objective Psychosocial Status: Willing and Cooperative to Participate Persons Present: Physical Therapist;Student;Nursing Staff;Family Home Living Type of Home: House Home Layout: One Level;Stairs to Enter w/ Rails(2 steps to enter, sunked living room) Bathroom Shower / Tub: Walk-in Shower Bathroom Toilet: Standard Bathroom Equipment: Shower Chair Home Equipment: Walker;Cane Prior Function Level Of [place]: Needed assistance with functional transfers Lives With: Spouse Receives Help From: Spouse Homemaking Assist: Total Assist Vocational: Retired Other Function Comments: In the past two weeks family has been assisting with fu nctional mobility. Independent with basic ADLs. Significant fall history. Vision Current Vision: Wears Glasses Only for Reading ADL's Where Assessed: Edge of Bed;Chair LE Dressing Assist: Stand By Assist LE Dressing Deficits: Don/Doff R Sock;Don/Doff L Sock;Don/Doff R Shoe;Don/Doff L Shoe;Fasteners Functional Transfer Assist: Minimal Assist Functional Transfer Deficits: Steadying;Supervision/Safety Comment: Minimal assist for bed mobility and sit<>stand transfers. Minimal assist for majority of ambulation requiring moderate assist at times due to poor speed control. Moderate assist x1 + minimal assist of second person for completion of stairs. Activity Tolerance Endurance: 3/5 Tolerates 25-30 Minutes Exercise w/Multiple Rests Sitting Balance: 4/5 Moves/Returns Trunkal Midpoint 1-2 Inches in Multiple Plane s Cognition Cognition Comment: SENECA. Poor insight into deficits. UE AROM Overall BUE AROM WNL: Yes Grasp: Bilateral Grasp Functional for Activity UE Strength / Tone Overall Strength / Tone: WFL Able to Perform ADL Tasks Education Persons Educated: Patient/Family Teaching Methods: Verbal Instruction Patient Response: Verbalized Understanding Topics: Role of OT, Goals for Therapy Goal Formulation: With Patient/Family Assessment Assessment: Decreased ADL Status;Decreased Safe/Judg during ADL;Decreased Endura nce;Decreased Self-Care Trans;Decreased High-Level ADLs Prognosis: Good;w/Cont OT s/p Acute Discharge Goal Formulation: Pt/family AM-PAC 6 Clicks Daily Activity Inpatient Putting on and taking off regular lower body clothes?: A Little Bathing (Including washing, rinsing, drying): A Little Toileting, which includes using toilet, bedpan, or urinal: A Little Putting on and taking off regular upper body clothing: None Taking care of personal grooming such as brushing teeth: None Eating meals?: None Daily Activity Raw Score: 21 Standardized (t-scale) score: 44.27 CMS 0-100% Score: 32.79 CMS G Code Modifier: CJ Plan OT Frequency: 5x/week OT Plan for Next Visit: Sink level ADLs, safety awareness, high level balance, t oileting ADL Goals Patient Will Perform Grooming: Standing at Sink;w/ Stand By Assist Patient Will Perform LE Dressing: In Chair;w/ Stand By Assist Patient Will Perform Toileting: w/ Stand By Assist Functional Transfer Goals Pt Will Perform All Functional Transfers: w/ Stand By Assist, w/ Good Judgment/S afety OT Discharge Recommendations Recommendation: Inpatient setting, Recommend rehab medicine consult Patient Currently Requires Physical Assist With: All mobility, All personal care ADLs, All home functioning ADLs Therapist: Mira Cruz OTR/Angely [id number] Date: 03/26/2019 * Paris Elizondo, PT - 03/26/2019 3:00 PM CDT PHYSICAL THERAPY ASSESSMENT MOBILITY: Progressive Mobility Level: Walk in hallway Distance Walked (feet): 200 ft Level of Assistance: Assist X1 Assistive Device: Walker Time Tolerated: 11-30 minutes Activity Limited By: Weakness;Fatigue SUBJECTIVE: Significant hospital events: 84 y.o. male with PMHx significant for A.Fib on war farin, CAD s/p CABG and multiple coronary stents, AAA who presents to [facility] with CC of roughly a year worth of gait instability, urinary incontinence, and cognit hayden decline suggestive of normal pressure hydrocephalus. 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 Mental / Cognitive Status: Alert;Oriented;Cooperative;Confused Persons Present: Occupational Therapist;Family;Student Pain: Patient has no complaint of pain Ambulation Assist: Assist Needed with Mobility-Related ADL's/Ambulation(increase in falls recent two weeks) Patient Owned Equipment: Single Point Cane;Roller Walker(started to use RW last two days) Home Situation: Lives with Family() Type of Home: House Entry Stairs: 1-2 Stairs;No Rail(2 steps to enter without rail) In-Home Stairs: 1-2 Stairs(one step to reach TV/family room) Comments: recent falls daily ROM: UE ROM WFL: Yes LE ROM WFL: Yes STRENGTH: Overall Strength: Generalized Weakness;No Focal Deficits Noted POSTURE/NEURO: Comments: slow cognitive processing with all tasks, easily distracted and freq r epeitition of instructions required Coordination: Intact Finger Nose Finger RUE;Intact Finger Nose Finger LUE;Intact Rapid Alternating Movement RUE;Intact Rapid Alternating Movement LUE Posture/Neuro Comments: patient denies numbness and tingling to light touch BED MOBILITY/TRANSFERS: Bed Mobility: Rolling: Minimal Assist Bed Mobility: Supine to Sit: Minimal Assist Transfer Type: Sit to/from Stand Transfer: Assistance Level: To/From;Bed;Minimal Assist Transfer: Assistive Device: Single Point Cane Transfers: Type Of Assistance: Verbal Cues;For Balance;For Strength Deficit;For Safety Considerations Other Transfer Type: Stand Pivot Other Transfer: Assistance Level: To;Bed Side Chair;Moderate Assist End Of Activity Status: Up in Chair;Nursing Notified;Instructed Patient to Reque st Assist with Mobility;Instructed Patient to Use Call Light Comments: pt with poor insight and attempting to sit before completing turn arou nd BALANCE: Sitting Balance: Static Sitting Balance;Dynamic Sitting Balance;No UE Support;Mi nimal Assist Standing Balance: Static Standing Balance;Dynamic Standing Balance;1 UE support; Minimal Assist;Moderate Assist Timed Up And Go (seconds): 19 seconds 5x Sit to Stand Result (seconds): 14.8 GAIT: Gait Distance: 200 feet Gait: Assistance Level: Minimal Assist;Moderate Assist Gait: Assistive Device: Single Point Cane Gait: Descriptors: Decreased foot clearance RLE;Decreased foot clearance LLE;For [place] trunk flexion;Pace: Slow;Pathway deviations;Decreased knee extension in sta nce phase RLE;Decreased knee extension in stance phase LLE;Loss of balance;Varia ble step length Comments: patient with poor yanelis control and frequently starting out at Bettye and quickly requiring moderate assist to prevent LOB lateral and anterior- unabl e to correct despite multiple cueing Stairs: Number Climbed: 3 Stairs: Descriptors: Ascend;Descend;Reciprocal Stairs: Assistance Level: Moderate Assist;of 1st person;Minimal Assist;of 2nd pe rson Stairs: Assistive Device: Two Rails;Hand Hold Assist Activity Limited By: Complaint of Fatigue;Weakness EDUCATION: Persons Educated: Patient Patient Barriers To Learning: Cognitive Deficits Interventions: Family Education Teaching Methods: Verbal Instruction;Demonstration Patient Response: More Instruction Required Topics: Plan/Goals of PT Interventions;Use of Assistive Device/Orthosis;Mobility Progression;Precautions;Safety Awareness;Importance of Increasing Activity ASSESSMENT/PROGRESS: Impaired Mobility Due To: Decreased Strength;Impaired Balance;Cognitive Deficits ;Safety Concerns;Decreased Activity Tolerance;Deconditioning Assessment/Progress: Should Improve w/ Continued PT;Awaiting Surgery Turning from your back to your side while in a flat bed without using bed rails: A Little Moving from lying on your back to sitting on the side of a flatbed without using bedrails : A Little Moving to and from a bed to a chair (including a wheelchair): A Lot Standing up from a chair using your arms (e.g. wheelchair, or bedside chair): A Little To walk in hospital room: A Lot Climbing 3-5 steps with a railing: Total Raw Score: 14 Standardized (T-scale) Score: 35.55 Basic Mobility CMS 0-100%: 53.86 CMS G Code Modifier for Basic Mobility: CK GOALS: Goal Formulation: With Patient/Family Time For Goal Achievement: 4 days Patient Will Go Supine To/From Sit: Independently Patient Will Transfer Bed/Chair: Independently Patient Will Ambulate: Greater than 200 Feet, w/ Walker, w/ Stand By Assist Patient Will Go Up / Down Stairs: 3-5 Stairs, w/ Stand By Assist PLAN: Treatment Interventions: Mobility Training;Strengthening;Balance Activities;Coor dination Training;Endurance Training;Family Training Plan Frequency: 5 Days per Week PT Plan for Next Visit: increase gait distance, balance training, stair training RECOMMENDATIONS: Recommendation: Inpatient setting;Recommend rehab medicine consult Therapist: Paris Elizondo PT, DPT, [facility] Date: 03/27/2019 * Kelin Mills RN - 03/26/2019 12:46 PM CDT Pt's says that he takes 40mg Celexa daily. Only 10 mg is currently ordered. MD notified. * Kelin Mills RN - 03/26/2019 11:51 AM CDT Pt admitted onto unit accompanied by transport at 1150. Patient transferred to [facility] with minimal assistance. Pt tolerated without any difficulties. Belongings at bedside. Orders reviewed and implemented as appropriate. Pt orien marixa to surroundings. Call light within reach. Plan of care reviewed. Will contin ue to monitor patient needs. Admission skin assessment completed with: IKE Silvestre Pressure injury present on arrival?: No 1. Head/Face/Neck: No 2. Trunk/Back: No 3. Upper Extremities: No 4. Lower Extremities: No 5. Pelvic/Coccyx: No 6. Assessed for device associated injury? Yes 7. Malnutrition Screening Tool (Nursing Nutrition Assessment) Completed? Yes See Doc Flowsheet for additional wound details. INTERVENTIONS: documented in this encounter H&P Notes * Lorna Salter, MSN,SLIDE FORMING MACHINE OPERATOR - 04/02/2019 10:14 AM CDT Pre Procedure History and Physical/Sedation Plan Procedure Date: 04/02/2019 Planned Procedure(s): Cerebral angiogram Indication for exam: Basilar aneurysm Chief Complaint: See above Previous Anesthetic/Sedation History: Per anesthesia. Allergies: Contrast dye iv, iodine containing [iodinated contrast- oral and iv dye] Medications: Scheduled Meds: [DEC Hold] allopurinol (ZYLOPRIM) tablet 100 mg 100 mg Oral QDAY [DEC Hold] amiodarone (CORDARONE) tablet 200 mg 200 mg Oral TID [DEC Hold] atorvastatin (LIPITOR) tablet 40 mg 40 mg Oral QDAY [DEC Hold] cholecalciferol (VITAMIN D-3) tablet 1,000 Units 1,000 Units Oral QDA Y [DEC Hold] citalopram (CELEXA) tablet 40 mg 40 mg Oral QDAY [DEC Hold] docusate (COLACE) capsule 100 mg 100 mg Oral BID [DEC Hold] losartan (COZAAR) tablet 50 mg 50 mg Oral QDAY [DEC Hold] melatonin tablet 5 mg 5 mg Oral QHS [DEC Hold] milk of magnesia (CONC) oral suspension 10 mL 10 mL Oral QDAY [DEC Hold] pantoprazole DR (PROTONIX) tablet 40 mg 40 mg Oral QDAY [DEC Hold] rOPINIRole (REQUIP) tablet 0.25 mg 0.25 mg Oral QHS [DEC Hold] senna (SENOKOT) tablet 1 tablet 1 tablet Oral BID [DEC Hold] spironolactone (ALDACTONE) tablet 25 mg 25 mg Oral QDAY [DEC Hold] tamsulosin (FLOMAX) capsule 0.4 mg 0.4 mg Oral QDAY Continuous Infusions: PRN and Respiratory Meds:[DEC Hold] acetaminophen Q6H PRN, [DEC Hold] bisacodyl QDAY PRN, [DEC Hold] ondansetron (ZOFRAN) IV Q6H PRN Vital Signs: Last Filed Vital Signs: 24 Hour Range BP: 161/83 (04/02 930) Temp: 36.3 C (97.3 F) (04/02 815) Pulse: 52 (04/02 930) Respirations: 13 PER MINUTE (04/02 930) SpO2: 96 % (04/02 930) O2 Delivery: None (Room Air) (04/02 930) SpO2 Pulse: 51 (04/02 930) BP: (122-161)/(53-83) Temp: [36.3 C (97.3 F)-36.9 C (98.5 F)] Pulse: [51-62] Respirations: [13 PER MINUTE-18 PER MINUTE] SpO2: [93 %-99 %] O2 Delivery: None (Room Air) Sedation/Medication Plan: General Anesthesia Personal history of sedation complications: NA. Family history of sedation complications: NA. Medications for Reversal: None Discussion/Reviews: Physician has discussed risks and alternatives of this type of sedation and above planned procedures with patient NPO Status: Per anesthesia. Airway: Per anesthesia. Head and Neck: Per anesthesia. Mouth: Per anesthesia. Anesthesia Classification: Per anesthesia. Status: N/A Lab/Radiology/Other Diagnostic Tests Labs: Relevant labs reviewed I have examined the patient, and there are no significant changes in their condi tion, from the previous H&P performed on 03/30/19. Patient pre-medicated for contrast allergy. Lorna Salter, MSN,SLIDE FORMING MACHINE OPERATOR Pager [phone] * Ton Weber MD - 03/26/2019 12:54 PM CDT Neurosurgery History and Physical Examination ATTENDING NOTE: I personally seen and examined the patient in the office setting. Dramatic incre ase in size of a fusiform basilar aneurysm warrants work-up with potential for t reatment. Certainly in a younger patient, treatment would be the clear recommend ation. However, given the patient's advanced age and multiple comorbidities, whe ther the treatment risk is acceptable remains in question pending the work-up. T reatment would almost certainly be a substantial endovascular stent construct, v jonas challenging technically, and high risk in the healing process, requiring tri ple therapy ASA/Brilinta/Lovenox. Meanwhile, the patient has clear evidence of progressive ventriculomegaly over t he past year, which is synchronous with his neurologic complaints of the past ye ar. This is c/w NPH. This problem is more straight forward, requiring shunt plac ement. Of course, no surgery is routine in octogenarians, however the clinical d abdias for this patient is compelling and the patient and family entirely on board. They cannot tolerate the present trend in progressive compromise to quality of life. I am admitting the patient directly to the hospital to expedite the medical work -up to optimize the patient for shunt surgery, and then aneurysm work-up. The ac tual treatment of the aneurysm, if pursued, will be planned for a future date, a s the required anti-coagulation regimen must be remote from the time of shunt pl acement. Estrada Godoy Admission Date: 03/26/2019 Assessment/Plan: Estrada Godoy is a 84 y.o. male with PMHx significant for A.Fib on warfar in, CAD s/p CABG and multiple coronary stents, AAA who presents to [facility] with CC of roughly a year worth of gait instability, urinary incontinence, and cognitive decline suggestive of normal pressure hydrocephalus. 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 It has increased dramatically in size sinc e this initial images. The relationship of the aneurysm to the patient's symptom s cannot be known without addressing the hydrocephalus first. Thereafter, a plan to evaluate the aneurysm for possible treatment will be pursued. -Will require treatment of NPH by shunt, followed by w/u for enlarging, giant ba silar aneurysm -Will need medical clearance for OR as well as AC plan -Plan for INSTRUCTOR OF SOCIOLOGY shunt once medically optimized -Consideration for treatment of aneurysm in delayed fashion once shunt placed -Will d/w medical/cardiology teams regarding anticoagulation mgmt of afib. Patient discussed with Dr. Weber __ Chief Complaint: Urinary, incontinence, gait instability History of Present Illness: Estrada Godoy is a 84 y.o. male with significant cardiac history includin g A. Fib on warfarin, CAD s/p CABG and multiple coronary stents, AAA who present s to [facility] with complaints of roughly one years worth of gait Instability, urina ry incontinence, and cognitive decline. Patient's and daughters report that in April 2018 he was admitted to the hospital with diverticulitis and after that he began to have episodes of confusion that were then followed by urinary incon tinence and changes in gait. Per the patient's family gait deteriorated to the p oint that he was falling on occasion. The patient's family also reports that in February he started having hearing difficulty which lead to him having a cochlear imp lants placed. He was then seen by a neurologist as part of a recommendation by ashley pierce sales vendor which brought to attention the giant basilar aneurysm. The aneury sm had been known since at least 2009, when a catheter angiogram was performed. The size of the aneurysm at that time, and treatment options at the time, yash calvin observational management as the only reasonable course. The aneurysm however , was lost to f/u. Contemporary images demonstrate large increase in size since 2009. Past Medical History: Medical History: Diagnosis Date Coronary artery disease Hearing loss SYL on CPAP Past Surgical History: Surgical History: Procedure Laterality Date COCHLEAR IMPLANT Right 02/24/2018 INSERTION COCHLEAR DEVICE (CPT L8614) performed by Yung Moreno MD at [facility] OR/Per iop TISSUE TRANSFER Right 11/03/2018 ADJACENT TISSUE TRANSFER PEDICLE FLAP (THINNING OF SCALP ABOVE MAGNET) performe d by Yung Moreno MD at [facility] OR/Periop CORONARY ANGIOPLASTY x5 HX HEART CATHETERIZATION x8 with stents Social History: Social History Tobacco Use Smoking status: Never Smoker Smokeless tobacco: Never Used Substance Use Topics Alcohol use: Yes Alcohol/week: 12.0 oz Types: 1 Cans of beer per week Drug use: No Family History: No family history on file. Allergies: Contrast dye iv, iodine containing [iodinated contrast- oral and iv dye] Medications: Medications Prior to Admission Medication Sig allopurinol (ZYLOPRIM) 100 mg tablet Take 100 mg by mouth daily. Take with f ood. amiodarone (CORDARONE) 200 mg tablet Take 200 mg by mouth three times daily. Take with food. atorvastatin (LIPITOR) 40 mg tablet Take 40 mg by mouth daily. cholecalciferol (VITAMIN D) 1,000 units tablet Take 1,000 Units by mouth sarina ly. citalopram (CELEXA) 10 mg tablet Take 10 mg by mouth Daily. losartan (COZAAR) 50 mg tablet Take 50 mg by mouth daily. MULTIVITAMINS (MULTI-VITAMIN PO) Take 1 Tab by mouth Daily. pantoprazole DR (PROTONIX) 40 mg tablet Take 40 mg by mouth daily. rOPINIRole (REQUIP) 0.25 mg tablet Take 0.25 mg by mouth at bedtime daily. spironolactone (ALDACTONE) 25 mg tablet Take 25 mg by mouth Daily. tamsulosin (FLOMAX) 0.4 mg capsule Take 0.4 mg by mouth daily. Do not crush, chew or open capsules. Take 30 minutes following the same meal each day. vitamin B complex (B COMPLEX-VITAMIN B12 PO) Take by mouth. warfarin (COUMADIN) 3 mg tablet Take 9 mg by mouth daily. Review of Systems: Full 10 point review of systems negative except for HPI Physical Exam: Vital Signs: Last Filed In 24 Hours Vital Signs: 24 Hour Range BP: 133/75 (03/26 1237) Temp: 36.4 C (97.5 F) (03/26 1237) Pulse: 62 (03/26 123) Respirations: 18 PER MINUTE (03/26 123) SpO2: 97 % (03/26 123) O2 Delivery: None (Room Air) (03/26 1237) Height: 182.9 cm (72") (03/26 1020) BP: (122-133)/(75-85) Temp: [36.4 C (97.5 F)] Pulse: [62-69] Respirations: [18 PER MINUTE] SpO2: [97 %] O2 Delivery: None (Room Air) General appearance: No acute distress Lungs: Clear to auscultation bilaterally Heart: Regular rate and rhythm Gastrointestinal: Soft, non-tender. Bowel sounds normal. no masses, no organome grady Musculoskeletal: No edema, redness or tenderness in the calves or thighs Skin: Integument intact without major lesion. Psychiatric: Normal affect Neurologic Exam: Mental Status: Awake, alert and oriented x 4, fluent speech, normal cognition, 3 /3 5 min recall Pupils: Pupils equal round and reactive to light Cranial Nerves: CN II-XII individually tested and found to be intact, gag not te sted Motor: Following commands x 4 with full strength Lab Tests: Hematology: Lab Results Component Value Date HGB 14.2 11/27/2009 HCT 41.9 11/27/2009 PLTCT 189 11/27/2009 WBC 5.3 11/27/2009 NEUT 57 11/27/2009 ANC 3.07 11/27/2009 ALC 1.69 11/27/2009 KAT 8 11/27/2009 AMC 0.41 11/27/2009 ABC 0.03 11/27/2009 MCV 87.0 11/27/2009 MCHC 34.0 11/27/2009 MPV 8.0 11/27/2009 RDW 15.3 11/27/2009 General Chemistry: Lab Results Component Value Date NA 134 11/27/2009 K 4.2 11/27/2009 CL 101 11/27/2009 CO2 25 11/27/2009 BUN 23 11/27/2009 CR 1.08 11/27/2009 GLU 100 11/27/2009 CA 9.5 11/27/2009 General Chemistry: Lab Results Component Value Date GAP 8 11/27/2009 Radiology and other Diagnostics Review: External imaging uploaded to cloud reviewed Fuad Dawson MD ATTENDING NOTE: I personally seen and examined the patient in the office setting. Dramatic incre ase in size of a fusiform basilar aneurysm warrants work-up with potential for t reatment. Certainly in a younger patient, treatment would be the clear recommend ation. However, given the patient's advanced age and multiple comorbidities, whe ther the treatment risk is acceptable remains in question pending the work-up. T reatment would almost certainly be a substantial endovascular stent construct, v jonas challenging technically, and high risk in the healing process, requiring tri ple therapy ASA/Brilinta/Lovenox. Meanwhile, the patient has clear evidence of progressive ventriculomegaly over t he past year, which is synchronous with his neurologic complaints of the past ye ar. This is c/w NPH. This problem is more straight forward, requiring shunt plac ement. Of course, no surgery is routine in octogenarians, however the clinical d abdias for this patient is compelling and the patient and family entirely on board. They cannot tolerate the present trend in progressive compromise to quality of life. I am admitting the patient directly to the hospital to expedite the medical work -up to optimize the patient for shunt surgery, and then aneurysm work-up. The ac tual treatment of the aneurysm, if pursued, will be planned for a future date, a s the required anti-coagulation regimen must be remote from the time of shunt pl acement. documented in this encounter Consult Notes * Elli Hyde APRN - 03/30/2019 11:31 AM CDT Associated Order(s): CONSULT INTERVENTIONAL RADIOLOGY PHYSICIAN Interventional Radiology Consult Note with Pre-procedural History and Physical Admission Date: 03/26/2019 LOS: 4 days Active Problems: Aneurysm (HCC) NPH (normal pressure hydrocephalus) Reason for consult: basilar aneurysm Assessment: - Pt up to chair, denies complaints. Family at bedside, all questions answered. - pt with contrast dye allergy with reaction is a rash. Will pre-med with IV be nadryl and IV hydrocortisone. - Labs, medications, and allergies meet procedural protocol. Plan: - Pt has been reviewed and added onto the [facility] schedule for today. - For sedation purposes, please keep NPO prior to procedure. We appreciate being able to participate in this patient's care. Please page with any questions or concerns. Elli Hyde APRN Pgr [phone] IR Team Pager [phone] (After-hours and Weekends) Procedure Date: 03/30/2019 Procedure: cerebral/carotid arteriogram IR Pre Procedure Notes: Will pre-med with IV benadryl and IV hydrocortisone. me thompson signed and held, consent at desk Chief Complaint: Basilar aneurysm Previous Anesthetic/Sedation History: Reviewed. History of present illness: Estrada Godoy is a 84 y.o. male patient with left INSTRUCTOR OF SOCIOLOGY shunt in placed [facility] (03/29). Pt states he is doing well today, denies complaints. Review of Systems Constitutional: negative Respiratory: negative Cardiovascular: negative Gastrointestinal: negative Medications Scheduled Meds: allopurinol (ZYLOPRIM) tablet 100 mg 100 mg Oral QDAY amiodarone (CORDARONE) tablet 200 mg 200 mg Oral TID atorvastatin (LIPITOR) tablet 40 mg 40 mg Oral QDAY ceFAZolin (ANCEF) IVP 2 g 2 g Intravenous Q8H* cholecalciferol (VITAMIN D-3) tablet 1,000 Units 1,000 Units Oral QDAY citalopram (CELEXA) tablet 40 mg 40 mg Oral QDAY docusate (COLACE) capsule 100 mg 100 mg Oral BID losartan (COZAAR) tablet 50 mg 50 mg Oral QDAY melatonin tablet 5 mg 5 mg Oral QHS milk of magnesia (CONC) oral suspension 10 mL 10 mL Oral QDAY pantoprazole DR (PROTONIX) tablet 40 mg 40 mg Oral QDAY rOPINIRole (REQUIP) tablet 0.25 mg 0.25 mg Oral QHS senna (SENOKOT) tablet 1 tablet 1 tablet Oral BID spironolactone (ALDACTONE) tablet 25 mg 25 mg Oral QDAY tamsulosin (FLOMAX) capsule 0.4 mg 0.4 mg Oral QDAY Continuous Infusions: PRN and Respiratory Meds:acetaminophen Q6H PRN, bisacodyl QDAY PRN, ondansetron (ZOFRAN) IV Q6H PRN Objective Vital Signs: Last Filed Vital Signs: 24 Justine r Range BP: 136/77 (03/30 806) Temp: 36.6 C (97.9 F) (03/30 806) Pulse: 54 (03/30 806) Respirations: 16 PER MINUTE (03/30 806) SpO2: 100 % (03/30 806) O2 Delivery: CPAP/BiPAP (Pt Owned) (06/14 0806) SpO2 Pulse: 55 (03/29 1447) BP: (122-151)/(64-86) Temp: [36.4 C (97.5 F)-36.7 C (98.1 F)] Pulse: [50-75] Respirations: [13 PER MINUTE-18 PER MINUTE] SpO2: [92 %-100 %] O2 Delivery: CPAP/BiPAP (Pt Owned) Vitals: 03/27/19 0852 Weight: 95.3 kg (210 lb 1.6 oz) Intake/Output Summary: (Last 24 hours) Intake/Output Summary (Last 24 hours) at 03/30/2019 1131 Last data filed at 03/30/2019 0900 Gross per 24 hour Intake 2006 ml Output 160 ml Net 1846 ml Stool Occurrence: 0 Physical Exam General appearance: alert, cooperative and no distress Neurologic: Grossly normal Lungs: non-labored Heart: regular rate and rhythm Abdomen: soft, non-tender. Bowel sounds normal. No masses, no organomegaly Extremities: extremities normal, atraumatic, no cyanosis or edema Airway: airway assessment performed Mallampati III (soft palate, base of uvula visible) Anesthesia Classification: ASA III (A patient with a severe systemic disease th at limits activity, but is not incapacitating) Sedation/Medication Plan: Fentanyl and Midazolam Personal history of sedation complications: Denies adverse event. Family history of sedation complications: Denies adverse event. Medications for Reversal: Naloxone and Flumazenil Discussion/Reviews: Physician has discussed risks and alternatives of this type of sedation and above planned procedures with patient NPO Status: Acceptable Status: N/A Lab/Radiology/Other Diagnostic Tests: Labs: Pertinent labs reviewed Radiology: Reviewed. * Darwin De La Rosa DO - 03/27/2019 10:56 AM CDT Associated Order(s): CONSULT REHABILITATION MEDICINE PHYSICIAN Physical Medicine & Rehabilitation Consult Note Date of Service: 03/27/2019 Estrada Godoy is a 84 y.o. male. : 1935 Primary Insurance: MEDICARE Secondary Insurance: [facility] Financial Class: Medicare Date of Admission: 03/26/2019 Referring Physician: Ton Weber MD Reason for Consult: evaluate for Post-Acute Rehab/Placement Precautions: Fall Weight bearing Precautions: WBAT Active Problems NPH Impaired mobility and adl Gait ataxia Urinary incontinence Cognitive impairment Assessment & Plan Estrada Godoy is a 84 y.o. male admitted to [facility] on 03/26/2019 with the following issues: Normal Pressure Hydrocephalus Impairments: communication deficits, loss of coordination, neurogenic bladder, p oor activity tolerance and weakness Activity Limitations: eating, grooming, bathing, dressing - upper, dressing - l ower, toileting, bladder control, transfers, ambulation, wheelchair, stairs, pro blem solving and memory Participation Restrictions: unable to return home safely Post-acute care rehabilitation needs: Patient likely has goals in at least two o ut of three therapeutic disciplines and medical complexity [facility] However, patient remains with barriers to admission, outlined below. Goals & Barriers Family / Patient Goals: return home with family supervision Mobility Goals: Overall goal is Modified independent Activities of Daily Living (ADLs) Goals: Overall goal is Modified independent Cognition / Communication Goals: Speech therapy will evaluate and treat cognitio n and communication deficits and assess for safe swallow Barriers: High burden of care and Medical complexity Facilitators: good home setup, controlled pain, good family / social support and patient motivation Rehabilitation Prognosis: Fair Tolerance for three hours of therapy a day: Fair Prior to the inpatient rehabilitation admission complete the following: - Will need f/u evaluation after patient has worked with PT and OT after INSTRUCTOR OF SOCIOLOGY plac ement on March 29 Darwin De La Rosa DO Rehab Consult Pager: [phone] History of Present Illness 84 y.o. male with PMHx significant for A.Fib on warfarin, CAD s/p CABG and mult iple coronary stents, AAA who presents to [facility] with CC of roughly a year worth o f gait instability, urinary incontinence, and cognitive decline suggestive of no rmal pressure hydrocephalus. Of note patient has recently discovered large basil ar aneurysm. Medicine consult reporting patient is authorized for surgery. Patient reports he will have significant support and familial supervision once discharged. Past Medical History Medical History: Diagnosis Date Coronary artery disease Hearing loss SYL on CPAP Past Surgical History Surgical History: Procedure Laterality Date COCHLEAR IMPLANT Right 02/24/2018 INSERTION COCHLEAR DEVICE (CPT L8614) performed by Yung Moreno MD at [facility] OR/Per iop TISSUE TRANSFER Right 11/03/2018 ADJACENT TISSUE TRANSFER PEDICLE FLAP (THINNING OF SCALP ABOVE MAGNET) performe d by Yung Moreno MD at [facility] OR/Periop CORONARY ANGIOPLASTY x5 HX HEART CATHETERIZATION x8 with stents Family\\Social History Social History Socioeconomic History Marital status: Spouse name: Not on file Number of children: Not on file Years of education: Not on file Highest education level: Not on file Occupational History Not on file Tobacco Use Smoking status: Never Smoker Smokeless tobacco: Never Used Substance and Sexual Activity Alcohol use: Yes Alcohol/week: 12.0 oz Types: 1 Cans of beer per week Drug use: No Sexual activity: Not on file Other Topics Concern Not on file Social History Narrative Not on file Family history reviewed; non-contributory Medications: allopurinol (ZYLOPRIM) tablet 100 mg 100 mg Oral QDAY amiodarone (CORDARONE) tablet 200 mg 200 mg Oral TID atorvastatin (LIPITOR) tablet 40 mg 40 mg Oral QDAY cholecalciferol (VITAMIN D-3) tablet 1,000 Units 1,000 Units Oral QDAY citalopram (CELEXA) tablet 40 mg 40 mg Oral QDAY docusate (COLACE) capsule 100 mg 100 mg Oral BID heparin (porcine) PF syringe 5,000 Units 5,000 Units Subcutaneous Q8H losartan (COZAAR) tablet 50 mg 50 mg Oral QDAY melatonin tablet 5 mg 5 mg Oral QHS milk of magnesia (CONC) oral suspension 10 mL 10 mL Oral QDAY pantoprazole DR (PROTONIX) tablet 40 mg 40 mg Oral QDAY phytonadione (VITAMIN K) injection 5 mg 5 mg Subcutaneous ONCE rOPINIRole (REQUIP) tablet 0.25 mg 0.25 mg Oral QHS senna (SENOKOT) tablet 1 tablet 1 tablet Oral BID spironolactone (ALDACTONE) tablet 25 mg 25 mg Oral QDAY tamsulosin (FLOMAX) capsule 0.4 mg 0.4 mg Oral QDAY PRN Medications: acetaminophen Q6H PRN, bisacodyl QDAY PRN, ondansetron (ZOFRAN) IV Q6H PRN Allergies: Allergies Allergen Reactions Contrast Dye Iv, Iodine Containing [Iodinated Contrast- Oral And Iv Dye] ITC JACKSON Prior Level of Function Self-Care/ADLs: Overall goal is Modified independent Mobility: Overall goal is Modified independent Cane, single Home Environment: Home Situation: Lives with Family () (03/27/2019 7:54 AM) Patient Owned Equipment: Single Point Cane;Roller Walker (started to use RW last two days) (03/27/2019 7:54 AM) Type of Home: House (03/27/2019 7:54 AM) Entry Stairs: 1-2 Stairs;No Rail (2 steps to enter without rail) (03/27/2019 7:5 4 AM) In-Home Stairs: 1-2 Stairs (one step to reach TV/family room) (03/27/2019 7:54 A M) Comments: recent falls daily (03/27/2019 7:54 AM) Bathroom Equipment: Shower Chair (03/26/2019 4:00 PM) Support System: Lives in [place], [place] in home with 3 steps. Will have 24 hour support at [place] [facility]. Current Level of Function Physical Therapy: 03/26 BED MOBILITY/TRANSFERS: Bed Mobility: Rolling: Minimal Assist Bed Mobility: Supine to Sit: Minimal Assist Transfer Type: Sit to/from Stand Transfer: Assistance Level: To/From;Bed;Minimal Assist Transfer: Assistive Device: Single Point Cane Transfers: Type Of Assistance: Verbal Cues;For Balance;For Strength Deficit;For Safety Considerations Other Transfer Type: Stand Pivot Other Transfer: Assistance Level: To;Bed Side Chair;Moderate Assist End Of Activity Status: Up in Chair;Nursing Notified;Instructed Patient to Reque st Assist with Mobility;Instructed Patient to Use Call Light Comments: pt with poor insight and attempting to sit before completing turn arou nd BALANCE: Sitting Balance: Static Sitting Balance;Dynamic Sitting Balance;No UE Support;Mi nimal Assist Standing Balance: Static Standing Balance;Dynamic Standing Balance;1 UE support; Minimal Assist;Moderate Assist Timed Up And Go (seconds): 19 seconds 5x Sit to Stand Result (seconds): 14.8 GAIT: Gait Distance: 200 feet Gait: Assistance Level: Minimal Assist;Moderate Assist Gait: Assistive Device: Single Point Cane Gait: Descriptors: Decreased foot clearance RLE;Decreased foot clearance LLE;For [place] trunk flexion;Pace: Slow;Pathway deviations;Decreased knee extension in sta nce phase RLE;Decreased knee extension in stance phase LLE;Loss of balance;Varia ble step length Comments: patient with poor yanelis control and frequently starting out at Bettye and quickly requiring moderate assist to prevent LOB lateral and anterior- unabl e to correct despite multiple cueing Stairs: Number Climbed: 3 Stairs: Descriptors: Ascend;Descend;Reciprocal Stairs: Assistance Level: Moderate Assist;of 1st person;Minimal Assist;of 2nd pe rson Stairs: Assistive Device: Two Rails;Hand Hold Assist Activity Limited By: Complaint of Fatigue;Weakness Occupational Therapy: 03/26 Vision Current Vision: Wears Glasses Only for Reading ADL's Where Assessed: Edge of Bed;Chair LE Dressing Assist: Stand By Assist LE Dressing Deficits: Don/Doff R Sock;Don/Doff L Sock;Don/Doff R Shoe;Don/Doff L Shoe;Fasteners Functional Transfer Assist: Minimal Assist Functional Transfer Deficits: Steadying;Supervision/Safety Comment: Minimal assist for bed mobility and sit<>stand transfers. Minimal assist for majority of ambulation requiring moderate assist at times due to poor speed control. Moderate assist x1 + minimal assist of second person for completion of stairs. Activity Tolerance Endurance: 3/5 Tolerates 25-30 Minutes Exercise w/Multiple Rests Sitting Balance: 4/5 Moves/Returns Trunkal Midpoint 1-2 Inches in Multiple Plane s Cognition Cognition Comment: SENECA. Poor insight into deficits. Review of Systems A 14 point review of systems was negative except for: Neurological: positive for coordination problems, gait problems and weakness Physical Exam BP: 140/82 (03/27 852) Temp: 37 C (98.6 F) (03/27 852) Pulse: 63 (03/27 948) Respirations: 18 PER MINUTE (03/27 948) SpO2: 97 % (03/27 948) O2 Delivery: None (Room Air) (03/27 852) Height: 182.9 cm (72") (03/27 852) Body mass index is 28.49 kg/m. General: No acute distress, family x 2 present Head: Non-traumatic Eyes: without scleral icterus, extra ocular movements intact ENT: moist mucous membranes Chest: adequate peripheral perfusion without cyanosis Lungs: not in respiratory distress, no accessory muscle use Abdomen: non-distended Skin: warm and dry Extremities: without clubbing or cyanosis MS: Root Right Left Shoulder Abduction C5 5 5 Elbow Flexion C5 5 5 Elbow Extension C7 5 5 Wrist Extension C6 5 5 Finger Flexion C8 5 5 Finger Abduction T1 5 5 Hip Flexion L2 5 5 Knee Flexion L5/S1 Knee Extension L3 5 5 Dorsiflexion L4 5 5 Plantarflexion S1 5 5 EHL Extension L5 Neuro: Hard of hearing Follows one and step commands Interactive and participatory H2S impaired bilaterally Intake/Output Summary: Intake/Output Summary (Last 24 hours) at 03/27/2019 1056 Last data filed at 03/27/2019 0853 Gross per 24 hour Intake 10 ml Output 200 ml Net -190 ml Stool Occurrence: 0 (03/27/2019 8:53 AM) Last Bowel Movement Date: 03/26/19 (03/27/2019 9:00 AM) No data recorded No data recorded No data recorded No data recorded No data recorded Basic Metabolic Profile Lab Results Component Value Date/Time NA 138 03/27/2019 03:47 AM K 4.2 03/27/2019 03:47 AM CA 9.3 03/27/2019 03:47 AM CL 106 03/27/2019 03:47 AM CO2 25 03/27/2019 03:47 AM Lab Results Component Value Date/Time BUN 17 03/27/2019 03:47 AM CR 1.10 03/27/2019 03:47 AM GLU 109 (H) 03/27/2019 03:47 AM CBC w diff Lab Results Component Value Date/Time WBC 6.5 03/27/2019 03:47 AM RBC 4.29 (L) 03/27/2019 03:47 AM HGB 12.9 (L) 03/27/2019 03:47 AM HCT 38.2 (L) 03/27/2019 03:47 AM MCV 89.0 03/27/2019 03:47 AM MCH 30.2 03/27/2019 03:47 AM RDW 14.4 03/27/2019 03:47 AM PLTCT 194 03/27/2019 03:47 AM MPV 8.3 03/27/2019 03:47 AM Lab Results Component Value Date/Time NEUT 61 03/27/2019 03:47 AM ANC 3.90 03/27/2019 03:47 AM LYMA 28 03/27/2019 03:47 AM ALC 1.80 03/27/2019 03:47 AM KAT 7 03/27/2019 03:47 AM AMC 0.50 03/27/2019 03:47 AM EOSA 4 03/27/2019 03:47 AM AEC 0.30 03/27/2019 03:47 AM BASA 0 03/27/2019 03:47 AM ABC 0.00 03/27/2019 03:47 AM Radiology: Pertinent radiology reviewed Associated attestation - Jesus Howell MD - 03/28/2019 9:24 AM CDT Rehabilitation Medicine Attending Physician Attestation: I personally performed dey portions of the history and exam. I discussed the jay e with the resident and agree with the resident's documentation of history, phys ical assessment and treatment plan unless otherwise noted. Thank you for allowing us to participate in the care of this patient. Jesus Howell MD 03/28/2019 9:24 AM Attending physician * Nguyen Hayes MD - 03/27/2019 8:37 AM CDT General Consult Note Admission Date: 03/26/2019 LOS: 1 day Reason for Consult: Pre-op eval Consult type: Opinion with orders Assessment/Plan Pre-op Eval: Pt has no active cardiac conditions including symptoms suggesting or a h/o recen t MO or symptoms of angina, new or worsening or decompensated CHF, significant a rrythmias, h/o aortic stenosis or mitral stenosis or other severe valvular dx. H e denies clinical predictors including h/o CVA, CHF, DM, or renal failure. He d oes have a significant hx severe CAD and poor functional status at this time. --Given EKG changes and recent dg of A fib, cardiology was consulted for recomme ndations. --EKG showed CA prolongation of 230, prolonged QT at 520, no ST/TW changes to guerra ggest ischemia, rate 55 -C 01/2018 showed LM, LAD, LCx, OMB is "patent". D1 and RCA 50%. No high-grad e disease. -03/04 regadenoson Myoview sestamibi MPI negative for sichemia. --INR 2.3 --> 1.9 today off warfarin --NSR on tele since admit Plan: --repeat ECHO today showed EF 45% and basal inferoseptal, basal inferior, mid i nferoseptal, mid inferior and apical inferior hypokinesis. --give vitamin K to decrease the INR to < 1.5 in preparation of surgery --no need for heparin bridge to anticoagulate unless pt goes into a fib --cardiology following with primary team --plan for INSTRUCTOR OF SOCIOLOGY shunt on March 29. Thank you for the consult. Will sign off at this time. If the primary service needs further assistance, the service should page [phone] (24 hours a day/7 days a week) to discuss the case. Nguyen Hayes MD Consult pager [phone] Subjective: Estrada Godoy is a 84 y.o. male reports poor sleep and restle ssness last night. Did not eat this am as he was NPO for possible surgery. No n/v, abd pain, fevers, chills. +loose stools today. cont'd global headache achy in nature but unchanged and constant, min relief with tylenol. New L temporal headache this am with neck soreness he thinks is from sleeping wrong. Scheduled Meds: allopurinol (ZYLOPRIM) tablet 100 mg 100 mg Oral QDAY amiodarone (CORDARONE) tablet 200 mg 200 mg Oral TID atorvastatin (LIPITOR) tablet 40 mg 40 mg Oral QDAY cholecalciferol (VITAMIN D-3) tablet 1,000 Units 1,000 Units Oral QDAY citalopram (CELEXA) tablet 40 mg 40 mg Oral QDAY docusate (COLACE) capsule 100 mg 100 mg Oral BID heparin (porcine) PF syringe 5,000 Units 5,000 Units Subcutaneous Q8H losartan (COZAAR) tablet 50 mg 50 mg Oral QDAY melatonin tablet 5 mg 5 mg Oral QHS milk of magnesia (CONC) oral suspension 10 mL 10 mL Oral QDAY pantoprazole DR (PROTONIX) tablet 40 mg 40 mg Oral QDAY rOPINIRole (REQUIP) tablet 0.25 mg 0.25 mg Oral QHS senna (SENOKOT) tablet 1 tablet 1 tablet Oral BID spironolactone (ALDACTONE) tablet 25 mg 25 mg Oral QDAY tamsulosin (FLOMAX) capsule 0.4 mg 0.4 mg Oral QDAY Continuous Infusions: PRN and Respiratory Meds:acetaminophen Q6H PRN, bisacodyl QDAY PRN, ondansetron (ZOFRAN) IV Q6H PRN Review of Systems: A 14 point review of systems was negative except for: as stated in HPI Vital Signs: Last Filed in 24 hours Vital Signs: 24 hour Range BP: 114/81 (03/27 425) Temp: 36.4 C (97.6 F) (03/27 425) Pulse: 64 (03/27 425) Respirations: 19 PER MINUTE (03/27 425) SpO2: 97 % (03/27 425) O2 Delivery: None (Room Air) (03/27 425) Height: 182.9 cm (72") (03/26 1020) BP: (114-134)/(71-85) Temp: [36.4 C (97.5 F)-36.6 C (97.9 F)] Pulse: [59-69] Respirations: [16 PER MINUTE-19 PER MINUTE] SpO2: [94 %-97 %] O2 Delivery: None (Room Air) Physical Exam: General: Alert, cooperative, no distress, appears stated age Head: Normocephalic, with scab on R side of head where a tree branch fell on hi m last week Neck: Supple, symmetrical, trachea midline, no adenopathy, thyroid: no enlargem ent/tenderness/nodules, no carotid bruit and no JVD Lungs: Clear to auscultation bilaterally Chest wall: No tenderness or deformity. No scars. Heart: Regular rate and rhythm, S1, S2 normal, no murmur, click rub or gallop . Abdomen: Soft, non-tender. Bowel sounds normal. No masses. No organomegaly. Extremities: Extremities normal, atraumatic, no cyanosis or edema Peripheral pulses: 2+ and symmetric, all extremities Skin: Skin color, texture, turgor normal. No rashes or lesions Neurologic: CNIII - XII grossly intact. Normal strength, sensation and reflexe s throughout. Lab/Radiology/Other Diagnostic Tests: 24-hour labs: Results for orders placed or performed during the hospital encounter of 03/26/19 (from the past 24 hour(s)) CBC AND DIFF Collection Time: 03/26/19 1:12 PM Result Value Ref Range White Blood Cells 5.1 4.5 - 11.0 K/UL RBC 4.40 4.4 - 5.5 M/UL Hemoglobin 13.4 (L) 13.5 - 16.5 GM/DL Hematocrit 39.8 (L) 40 - 50 % MCV 90.4 80 - 100 FL MCH 30.4 26 - 34 PG MCHC 33.7 32.0 - 36.0 G/DL RDW 14.7 11 - 15 % Platelet Count 186 150 - 400 K/UL MPV 8.4 7 - 11 FL Neutrophils 55 41 - 77 % Lymphocytes 33 24 - 44 % Monocytes 9 4 - 12 % Eosinophils 3 0 - 5 % Basophils 0 0 - 2 % Absolute Neutrophil Count 2.80 1.8 - 7.0 K/UL Absolute Lymph Count 1.70 1.0 - 4.8 K/UL Absolute Monocyte Count 0.50 0 - 0.80 K/UL Absolute Eosinophil Count 0.10 0 - 0.45 K/UL Absolute Basophil Count 0.00 0 - 0.20 K/UL PROTIME INR (PT) Collection Time: 03/26/19 1:12 PM Result Value Ref Range INR 2.3 (H) 0.8 - 1.2 PTT (APTT) Collection Time: 03/26/19 1:12 PM Result Value Ref Range APTT 34.3 24.0 - 36.5 SEC BASIC METABOLIC PANEL Collection Time: 03/26/19 1:12 PM Result Value Ref Range Sodium 139 137 - 147 MMOL/L Potassium 4.4 3.5 - 5.1 MMOL/L Chloride 105 98 - 110 MMOL/L CO2 29 21 - 30 MMOL/L Anion Gap 5 3 - 12 Glucose 101 (H) 70 - 100 MG/DL Blood Urea Nitrogen 18 7 - 25 MG/DL Creatinine 1.24 0.4 - 1.24 MG/DL Calcium 9.6 8.5 - 10.6 MG/DL eGFR Non 56 (L) >60 mL/min eGFR >60 >60 mL/min CBC AND DIFF Collection Time: 03/27/19 3:47 AM Result Value Ref Range White Blood Cells 6.5 4.5 - 11.0 K/UL RBC 4.29 (L) 4.4 - 5.5 M/UL Hemoglobin 12.9 (L) 13.5 - 16.5 GM/DL Hematocrit 38.2 (L) 40 - 50 % MCV 89.0 80 - 100 FL MCH 30.2 26 - 34 PG MCHC 33.9 32.0 - 36.0 G/DL RDW 14.4 11 - 15 % Platelet Count 194 150 - 400 K/UL MPV 8.3 7 - 11 FL Neutrophils 61 41 - 77 % Lymphocytes 28 24 - 44 % Monocytes 7 4 - 12 % Eosinophils 4 0 - 5 % Basophils 0 0 - 2 % Absolute Neutrophil Count 3.90 1.8 - 7.0 K/UL Absolute Lymph Count 1.80 1.0 - 4.8 K/UL Absolute Monocyte Count 0.50 0 - 0.80 K/UL Absolute Eosinophil Count 0.30 0 - 0.45 K/UL Absolute Basophil Count 0.00 0 - 0.20 K/UL BASIC METABOLIC PANEL Collection Time: 03/27/19 3:47 AM Result Value Ref Range Sodium 138 137 - 147 MMOL/L Potassium 4.2 3.5 - 5.1 MMOL/L Chloride 106 98 - 110 MMOL/L CO2 25 21 - 30 MMOL/L Anion Gap 7 3 - 12 Glucose 109 (H) 70 - 100 MG/DL Blood Urea Nitrogen 17 7 - 25 MG/DL Creatinine 1.10 0.4 - 1.24 MG/DL Calcium 9.3 8.5 - 10.6 MG/DL eGFR Non >60 >60 mL/min eGFR >60 >60 mL/min PROTIME INR (PT) Collection Time: 03/27/19 7:44 AM Result Value Ref Range INR 1.9 (H) 0.8 - 1.2 Pertinent radiology reviewed. Nguyen Hayes MD Pager * Arsh Alvarez MD - 03/26/2019 10:44 PM CDT Associated Order(s): CONSULT CARDIOLOGY PHYSICIAN Staff Cardiology Consult Admission Date: 03/26/2019 Today's Date: 03/26/2019 LOS: 0 days Assessment & Plan Estrada Godoy is a 84 y.o. patient with the following problems: Active Problems: * No active hospital problems. * Assessment 1. Preop cardiovascular evaluation -Known coronary disease with multiple stents and intervention -No angina, heart failure, previous infarct -Mild LV dysfunction without evidence of heart failure patient is intermediate r isk for cardiovascular indications for surgery. This is due to his multiple pre -existing problems. He does not require any further testing at this point. He will be at increased risk for paroxysmal atrial fibrillation 2. Paroxysmal atrial fibrillation -Currently controlled with amiodarone and maintained on warfarin -Anticoagulation can safely be withheld for surgery -Do not need to bridge with heparin since he remains in sinus rhythm at this khadar e -Please if he develops into fibrillation will need to place on parenteral antico agulation and restart warfarin 3. Normal pressure hydrocephalus/ Basal aneurism. Anticipated INSTRUCTOR OF SOCIOLOGY shunt soon Followed by treatment of aneurysm 4. Ascending thoracic aortic dissection Treated medically 4.4 cm ascending aorta No aortic regurgitation 5. Abdominal aortic aneurysm post endograft Ultrasound 2 months ago she was repaired aneurysm with no endoleak 6. Ischemic cardiomyopathy Ejection at 45% in the past We will repeat echocardiogram 7. CKD stage III Recommendations 1. We need to get the results from his most recent thallium scan last month. I f this is negative no further testing is needed as stated above 2. Discontinue warfarin. Since he remains in sinus rhythm we do not need to br idge him with heparin 3. If he develops atrial fibrillation will need to start anticoagulation with h eparin. Otherwise can wait until it is safe from a surgical standpoint to resum e warfarin after his procedures 4. We will obtain echocardiogram. Need to ensure that his left ventricular fun ction is normal and valvular function is normal 5. Discontinue warfarin. Can give small dose of vitamin K to assist with INR r eturned to normal. Suggest 5 mg sq. 6. 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 Patient has had progressive dementia and gait disturbance and urinary incontinen ce. He was diagnosed with normal pressure hydrocephalus and transferred to [facility] f or evaluation. 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 He was tra nsferred to for insertion of INSTRUCTOR OF SOCIOLOGY shunt and then ultimately treatment of his an eurysm on this will need to be delayed until he has recovered from his INSTRUCTOR OF SOCIOLOGY shunt He has a long history of coronary disease. He initially presented with fatigue sleepiness and lack of energy. Ultimately a automatic trimming sewer in [place] performed a n angiogram and placed a stent. His symptoms improved dramatically. He has had progressive weakness from time to time and repeated angiograms. Altogether he has had 10 stents and 5 balloon angioplasties. He also had an abdominal aortic aneurysm treated with endograft. Sounds like he may have had an endoleak that w as repaired percutaneously a few years ago. The family is not clear on the det ils. Records we have do not mention aneurysm at all. The did have a copy of his last ultrasound done just a few months ago. Ultrasound shows an endograf t inside of a 7 x 6.4 cm aneurysm with good flow and no evidence of endoleak jose angel t I can see. I do not have the report. He also had a history of a aortic disse ction in his ascending aorta which was treated medically. He has been followed with imaging. He has not had angina. indicates that he has never had ang lety but simply the fatigue and progressive weakness that he met that heralded [facility] need for another stent. His last angiogram in January 2018 prior to his cochlea r implant showed "patent left main, LAD, diagonal, circumflex. D2 has a 50% and the RCA has a proximal 50% stenosis. The stents are not mentioned. An echo at that time showed ejection fraction 46%, inferoseptal hypokinesis, ascending aor ta 1.4 cm and normal PA pressure. Last month a thallium scan was performed. e tells me it was normal. We do not have the report. The patient was diagnosed with atrial fibrillation 2014. An angiogram revealed patent stents. Echo showed mild LV dysfunction. He was treated with amiodarone and warfarin. He remains in sinus rhythm at this time. He is anticoagulated w ith warfarin. He can be off of warfarin for his surgical procedure. Since he i s in sinus rhythm we do not need to bridge him. He developed a defibrillation w e will need to address bridging with heparin. ROS: Patient has profound hearing loss. Medicationsof the family. Unable to evaluate gait and balance during my examination Denies headaches, nausea, vomiting, constipation Denies fever, chills, sweats status Past Medical History Coronary artery disease ---Records incomplete-family reports 10 stents and 5 PCI's ---Last angiogram showed minimal blockage last MPI negative (per family report) Abdominal aortic aneurysm post endograft 2014 descending thoracic aorta dissection-medically treated CKD Heart failure with reduced ejection fraction Paroxysmal atrial fibrillation ---treated with amiodarone and anticoagulation SYL on CPAP Normal pressure hydrocephalus ---Progressive gait instability, memory problems, urinary incontinence Hearing loss with cochlear implant Hypercholesterolemia CKD stage III Medications Scheduled Meds: allopurinol (ZYLOPRIM) tablet 100 mg 100 mg Oral QDAY amiodarone (CORDARONE) tablet 200 mg 200 mg Oral TID atorvastatin (LIPITOR) tablet 40 mg 40 mg Oral QDAY cholecalciferol (VITAMIN D-3) tablet 1,000 Units 1,000 Units Oral QDAY citalopram (CELEXA) tablet 40 mg 40 mg Oral QDAY docusate (COLACE) capsule 100 mg 100 mg Oral BID losartan (COZAAR) tablet 50 mg 50 mg Oral QDAY melatonin tablet 5 mg 5 mg Oral QHS milk of magnesia (CONC) oral suspension 10 mL 10 mL Oral QDAY pantoprazole DR (PROTONIX) tablet 40 mg 40 mg Oral QDAY rOPINIRole (REQUIP) tablet 0.25 mg 0.25 mg Oral QHS senna (SENOKOT) tablet 1 tablet 1 tablet Oral BID spironolactone (ALDACTONE) tablet 25 mg 25 mg Oral QDAY tamsulosin (FLOMAX) capsule 0.4 mg 0.4 mg Oral QDAY Continuous Infusions: PRN and Respiratory Meds:acetaminophen Q6H PRN, bisacodyl QDAY PRN, ondansetron (ZOFRAN) IV Q6H PRN Objective Vital Signs: Last Filed Vital Signs: 24 Justine r Range BP: 134/74 (03/26 2024) Temp: 36.6 C (97.9 F) (03/26 2024) Pulse: 66 (03/26 2024) Respirations: 16 PER MINUTE (03/26 2024) SpO2: 95 % (03/26 2024) O2 Delivery: None (Room Air) (03/26 2024) Height: 182.9 cm (6') (03/26 1020) BP: (122-134)/(71-85) Temp: [36.4 C (97.5 F)-36.6 C (97.9 F)] Pulse: [62-69] Respirations: [16 PER MINUTE-18 PER MINUTE] SpO2: [94 %-97 %] O2 Delivery: None (Room Air) There were no vitals filed for this visit. Intake/Output Summary: (Last 24 hours) Intake/Output Summary (Last 24 hours) at 03/26/20192246 Last data filed at 03/26/20192023 Gross per 24 hour Intake 10 ml Output 100 ml Net -90 ml Physical Exam General Appearance: resting comfortably, no acute distress Skin: warm, moist Digits and Nails: no clubbing Eyes: conjunctivae and lids normal Neck Veins: neck veins are not distended Thyroid: no nodules or enlargement Chest Inspection: chest is normal in appearance Respiratory Effort: breathing is unlabored, no respiratory distress Auscultation/Percussion: lungs clear to auscultation, no rales, rhonchi, or whee zing PMI: PMI not enlarged or displaced Cardiac Rhythm: regular rhythm and normal rate Cardiac Auscultation: Normal S1 & S2, no S3 or S4, no rub Murmurs: no cardiac murmurs Carotid Arteries: normal carotid upstroke bilaterally, no bruits Pedal Pulses: normal symmetric pedal pulses Lower Extremity Edema: no lower extremity edema Abdominal Exam: soft, non-tender, no masses, bowel sounds normal Abdominal Aorta: nonpalpable abdominal aorta; no abdominal bruits Liver & Spleen: no organomegaly Neurologic Exam: neurological assessment grossly intact Lab Review Results for orders placed or performed during the hospital encounter of 03/26/19 (from the past 24 hour(s)) CBC AND DIFF Collection Time: 03/26/19 1:12 PM Result Value Ref Range White Blood Cells 5.1 4.5 - 11.0 K/UL RBC 4.40 4.4 - 5.5 M/UL Hemoglobin 13.4 (L) 13.5 - 16.5 GM/DL Hematocrit 39.8 (L) 40 - 50 % MCV 90.4 80 - 100 FL MCH 30.4 26 - 34 PG MCHC 33.7 32.0 - 36.0 G/DL RDW 14.7 11 - 15 % Platelet Count 186 150 - 400 K/UL MPV 8.4 7 - 11 FL Neutrophils 55 41 - 77 % Lymphocytes 33 24 - 44 % Monocytes 9 4 - 12 % Eosinophils 3 0 - 5 % Basophils 0 0 - 2 % Absolute Neutrophil Count 2.80 1.8 - 7.0 K/UL Absolute Lymph Count 1.70 1.0 - 4.8 K/UL Absolute Monocyte Count 0.50 0 - 0.80 K/UL Absolute Eosinophil Count 0.10 0 - 0.45 K/UL Absolute Basophil Count 0.00 0 - 0.20 K/UL PROTIME INR (PT) Collection Time: 03/26/19 1:12 PM Result Value Ref Range INR 2.3 (H) 0.8 - 1.2 PTT (APTT) Collection Time: 03/26/19 1:12 PM Result Value Ref Range APTT 34.3 24.0 - 36.5 SEC BASIC METABOLIC PANEL Collection Time: 03/26/19 1:12 PM Result Value Ref Range Sodium 139 137 - 147 MMOL/L Potassium 4.4 3.5 - 5.1 MMOL/L Chloride 105 98 - 110 MMOL/L CO2 29 21 - 30 MMOL/L Anion Gap 5 3 - 12 Glucose 101 (H) 70 - 100 MG/DL Blood Urea Nitrogen 18 7 - 25 MG/DL Creatinine 1.24 0.4 - 1.24 MG/DL Calcium 9.6 8.5 - 10.6 MG/DL eGFR Non 56 (L) >60 mL/min eGFR >60 >60 mL/min Arsh Alvarez MD * Nguyen Hayes MD - 03/26/2019 1:37 PM CDT Associated Order(s): CONSULT INTERNAL MEDICINE PHYSICIAN General Consult Note Admission Date: 03/26/2019 LOS: 0 days Reason for Consult: Pre-op eval Consult type: Opinion with orders Assessment/Plan Pre-op Eval: Pt has no active cardiac conditions including symptoms suggesting or a h/o recen t MO or symptoms of angina, new or worsening or decompensated CHF, significant a rrythmias, h/o aortic stenosis or mitral stenosis or other severe valvular dx. H e denies clinical predictors including h/o CVA, CHF, DM, or renal failure. He d oes have a significant hx severe CAD and poor functional status at this time. Plan: --EKG shows CA prolongation of 230, prolonged QT at 520, no ST/TW changes to sug gest ischemia, rate 55 --will attempt to obtain records of last LHC, stress, ECHO, prior imaging of ane ursyms and last progress note from the pt's automatic trimming sewer Dr Vanegas (phone [phone]) --keep on tele --hold warfarin --start heparin drip for AC pre-operatively --recommend consulting our cardiology team given the multiple cardiac issues the pt has, his EKG abnormalities and the high-risk surgery pt is about to undergo Thank you for the consult. . Note: All patient care calls should be directed fi rst to the primary service. If the primary service needs further assistance, [facility] service should page [phone] (24 hours a day/7 days a week) to discuss the case. Nguyen Hayes MD Consult pager [phone] History of Present Illness: Estrada Godoy is a 84 y.o. 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 Patient and his family at the bedside reports that sym ptoms began approximately a year ago with some lightheadedness that was initiall y attributed to his history of Mnire's disease but also has caused hearing l oss and the need for right cochlear implant. He also began having significant c onfusion and cognitive decline. Then approximately 3 to 4 months ago patient be john falling repeatedly and over the past month has had significant gait instabil ity to the point where he cannot walk without assistance and also increasing jolynn ility where he can only walk very short distances of approximately 10 feet or le ss. Patient has also noted in the past month urinary incontinence. His primary care doctor referred him to neurologist for evaluation of the symptoms and imag ing with CAT scan showed NPH and a large basilar aneurysm. At that time he was referred to Dr. Weber's clinic and today he was directly admitted from clinic to the hospital for surgical intervention. 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 How ever over the past few months and most notably in the past month he has become s o debilitated that he is extremely weak and has difficulty ambulating without as sistance and even with assistance can only ambulate a few feet before having to sit down. Pt's family reports many falls in the past month. Patient denies any chest pain or chest pressure, shortness of breath at rest. H e does report some dyspnea on exertion when walking approximately 100 feet or mo re. He denies lower extremity edema or orthopnea or PND. He does not feel his atrial fibrillation and has no symptoms of racing heartbeat, skipped heartbeats. Per the patient and his family he has no prior diagnosis of diabetes, stroke, heart failure, renal disease, history of valvular disorders. Medical History: Diagnosis Date Coronary artery disease Hearing loss SYL on CPAP Surgical History: Procedure Laterality Date COCHLEAR IMPLANT Right 02/24/2018 INSERTION COCHLEAR DEVICE (CPT L8614) performed by Yung Moreno MD at [facility] OR/Per iop TISSUE TRANSFER Right 11/03/2018 ADJACENT TISSUE TRANSFER PEDICLE FLAP (THINNING OF SCALP ABOVE MAGNET) performe d by Yung Moreno MD at [facility] OR/Periop CORONARY ANGIOPLASTY x5 HX HEART CATHETERIZATION x8 with stents Social History Socioeconomic History Marital status: Spouse name: Not on file Number of children: Not on file Years of education: Not on file Highest education level: Not on file Occupational History Not on file Social Needs Financial resource strain: Not on file Food insecurity: Worry: Not on file Inability: Not on file Transportation needs: Medical: Not on file Non-medical: Not on file Tobacco Use Smoking status: Never Smoker Smokeless tobacco: Never Used Substance and Sexual Activity Alcohol use: Yes Alcohol/week: 12.0 oz Types: 1 Cans of beer per week Drug use: No Sexual activity: Not on file Lifestyle Physical activity: Days per week: Not on file Minutes per session: Not on file Stress: Not on file Relationships Social connections: Talks on phone: Not on file Gets together: Not on file Attends anglican service: Not on file Active member of club or organization: Not on file Attends meetings of clubs or organizations: Not on file Relationship status: Not on file Intimate partner violence: Fear of current or ex partner: Not on file Emotionally abused: Not on file Physically abused: Not on file Forced sexual activity: Not on file Other Topics Concern Not on file Social History Narrative Not on file Family history reviewed; non-contributory Allergies: Contrast dye iv, iodine containing [iodinated contrast- oral and iv dye] Scheduled Meds: allopurinol (ZYLOPRIM) tablet 100 mg 100 mg Oral QDAY amiodarone (CORDARONE) tablet 200 mg 200 mg Oral TID atorvastatin (LIPITOR) tablet 40 mg 40 mg Oral QDAY cholecalciferol (VITAMIN D-3) tablet 1,000 Units 1,000 Units Oral QDAY citalopram (CELEXA) tablet 10 mg 10 mg Oral QDAY docusate (COLACE) capsule 100 mg 100 mg Oral BID losartan (COZAAR) tablet 50 mg 50 mg Oral QDAY milk of magnesia (CONC) oral suspension 10 mL 10 mL Oral QDAY pantoprazole DR (PROTONIX) tablet 40 mg 40 mg Oral QDAY rOPINIRole (REQUIP) tablet 0.25 mg 0.25 mg Oral QHS senna (SENOKOT) tablet 1 tablet 1 tablet Oral BID spironolactone (ALDACTONE) tablet 25 mg 25 mg Oral QDAY tamsulosin (FLOMAX) capsule 0.4 mg 0.4 mg Oral QDAY Continuous Infusions: PRN and Respiratory Meds:acetaminophen Q6H PRN, bisacodyl QDAY PRN, ondansetron (ZOFRAN) IV Q6H PRN Review of Systems: A 14 point review of systems was negative except for: as stated in HPI Vital Signs: Last Filed in 24 hours Vital Signs: 24 hour Range BP: 133/75 (03/26 1237) Temp: 36.4 C (97.5 F) (03/26 1237) Pulse: 62 (03/26 1237) Respirations: 18 PER MINUTE (03/26 1237) SpO2: 97 % (03/26 1237) O2 Delivery: None (Room Air) (06/10 1237) Height: 182.9 cm (72") (03/26 1020) BP: (122-133)/(75-85) Temp: [36.4 C (97.5 F)] Pulse: [62-69] Respirations: [18 PER MINUTE] SpO2: [97 %] O2 Delivery: None (Room Air) Physical Exam: General: Alert, cooperative, no distress, appears stated age Head: Normocephalic, with scab on R side of head where a tree branch fell on hi m last week Neck: Supple, symmetrical, trachea midline, no adenopathy, thyroid: no enlargem ent/tenderness/nodules, no carotid bruit and no JVD Lungs: Clear to auscultation bilaterally Chest wall: No tenderness or deformity. No scars. Heart: Regular rate and rhythm, S1, S2 normal, no murmur, click rub or gallop . Abdomen: Soft, non-tender. Bowel sounds normal. No masses. No organomegaly. Extremities: Extremities normal, atraumatic, no cyanosis or edema Peripheral pulses: 2+ and symmetric, all extremities Skin: Skin color, texture, turgor normal. No rashes or lesions Neurologic: CNIII - XII grossly intact. Normal strength, sensation and reflexe s throughout. Lab/Radiology/Other Diagnostic Tests: 24-hour labs: Results for orders placed or performed during the hospital encounter of 03/26/19 (from the past 24 hour(s)) CBC AND DIFF Collection Time: 03/26/19 1:12 PM Result Value Ref Range White Blood Cells 5.1 4.5 - 11.0 K/UL RBC 4.40 4.4 - 5.5 M/UL Hemoglobin 13.4 (L) 13.5 - 16.5 GM/DL Hematocrit 39.8 (L) 40 - 50 % MCV 90.4 80 - 100 FL MCH 30.4 26 - 34 PG MCHC 33.7 32.0 - 36.0 G/DL RDW 14.7 11 - 15 % Platelet Count 186 150 - 400 K/UL MPV 8.4 7 - 11 FL Neutrophils 55 41 - 77 % Lymphocytes 33 24 - 44 % Monocytes 9 4 - 12 % Eosinophils 3 0 - 5 % Basophils 0 0 - 2 % Absolute Neutrophil Count 2.80 1.8 - 7.0 K/UL Absolute Lymph Count 1.70 1.0 - 4.8 K/UL Absolute Monocyte Count 0.50 0 - 0.80 K/UL Absolute Eosinophil Count 0.10 0 - 0.45 K/UL Absolute Basophil Count 0.00 0 - 0.20 K/UL PROTIME INR (PT) Collection Time: 03/26/19 1:12 PM Result Value Ref Range INR 2.3 (H) 0.8 - 1.2 PTT (APTT) Collection Time: 03/26/19 1:12 PM Result Value Ref Range APTT 34.3 24.0 - 36.5 SEC BASIC METABOLIC PANEL Collection Time: 03/26/19 1:12 PM Result Value Ref Range Sodium 139 137 - 147 MMOL/L Potassium 4.4 3.5 - 5.1 MMOL/L Chloride 105 98 - 110 MMOL/L CO2 29 21 - 30 MMOL/L Anion Gap 5 3 - 12 Glucose 101 (H) 70 - 100 MG/DL Blood Urea Nitrogen 18 7 - 25 MG/DL Creatinine 1.24 0.4 - 1.24 MG/DL Calcium 9.6 8.5 - 10.6 MG/DL eGFR Non 56 (L) >60 mL/min eGFR >60 >60 mL/min Pertinent radiology reviewed. Nguyen Hayes MD Pager documented in this encounter Miscellaneous Notes * Case Mgmt DC Plan - Cher Price - 04/04/2019 8:47 AM CDT Case Management Progress Note NAME:Estrada Godoy :1935 AGE: 84 y.o. ADMISSION DATE: 03/26/2019 DAYS ADMITTED: LOS: 9 days Todays Date: 04/04/2019 Plan SW met with the neurosurgeyr team regarding POC and d/c planning. Mr. Godoy is medically stable to d/c today to [facility] in [facility]. Mr. Godoy' daughter and plan to transport them, once the d/c orders are in and reviewed with family. SW delivered transfer packet and notified bedside RN. Interventions ? Support Pt's and two daughters are very supportive and plan to assist pt at home. P t's can provide 24 hour support and his daughters are available for intermi ttent assistance. ? Info or Referral ? Discharge Planning Pt's family to transport pt to [facility] today by 9:00a [facility]:(Clinically accepted) [address] [place] [address] (M-F) / [phone] (S-S) [phone] ? Medication Needs ? Financial ? Legal ? Other Disposition ? Expected Discharge Date Expected Discharge Date: 04/04/19 Expected Discharge Time: 0900 ? Transportation Does the patient need discharge transport arranged?: No Transportation Name, Phone and Availability #1: Transportation Name, Phone and Availability #2: facility Does the patient use Medicaid Transportation?: No ? Next Level of Care (Acute Psych discharges only) ? Discharge Disposition Durable Medical Equipment No service has been selected for the patient. [facility] No service has been selected for the patient. [facility] No service has been selected for the patient. [facility] D[facility]/Infusion No service has been selected for the patient. Cher Price LMSW *[phone] * Care Coordination-Inpatient - Allison Stockton RN - 04/03/2019 1:16 PM CDT Estrada Godoy NPH (normal pressure hydrocephalus) with Left ventriculoperitoneal shunt placeme nt on 03/29/[address] Weber. Codman valve @ 5. Neurosurgery Discharge Instructions Contact information: ? Please feel free to call Neurosurgery at any time if you have questions or are experiencing problems at discharge [phone]. Post-operative wound care: ? Your head incision has dissolvable sutures in place. Your incision may be open to air. ? Your abdominal incision has dissolvable sutures and glue in place. ? Use baby shampoo to wash incision, pat dry and leave open to air. ? Do not submerge your incision under water at all for 6 weeks. ? Have someone look at your incision every day. It should look the same or efren r daily. ? Do not apply any ointment, cream or lotions to incision line. Activity restrictions: ? Avoid pushing, pulling, lifting or bending more than 10 pounds (about a gallon of milk). If you hold children, they should be placed in your lap or crawl into lap if old enough. ? Do NOT drive until you are cleared by your physician. Post-operative pain and medications: ? Please use your pain medications and muscle relaxers as prescribed. ? Pain medications can make you constipated. You may take a stool softener and m iralax. ? Do NOT take Ibuprofen or NSAIDS (Aleve, Motrin, Naproxen) until doctor approve d. ? Tylenol is approved for pain control. This is available over the counter. Follow up appointment: ? 04/12/19 @ 11:15, CT head w/o contrast @ [facility], prior to appointment. ? 04/12/19 @ 1:45 with Nurse Practitioner for wound check and follow up. Please contact Neurosurgery if you develop any of the following: ? New or worsening changes in coordination or loss of balance. ? New or worsening changes in memory, confusion, speech or vision. ? Fever 101 or greater. Redness, swelling, continuous oozing, fluid collection, warmth or bad odor near the incision site. ? Intense pain that is getting worse or unrelieved by pain medications or muscle relaxers. Allison Stockton RN Clinical Nurse Coordinator Neurosurgery Office: [phone] * Case Mgmt DC Plan - Cher Price - 04/03/2019 11:16 AM CDT Case Management Progress Note NAME:Estrada Godoy :1935 AGE: 84 y.o. ADMISSION DATE: 03/26/2019 DAYS ADMITTED: LOS: 8 days Todays Date: 04/03/2019 Plan MIRLANDE met with the neurosurgery team regarding POC and d/c planning. Mr. Godoy is scheduled for his MRI today. If imaging complete and urgent surgery not warra nted, Mr. Godoy should be ready for IPR tomorrow. MIRLANDE set updated therapy notes, clinical notes, and bedside RN notes to [facility] as an update. Interventions ? Support Pt's and 2 adult daughters plan to be here on Dwight morning to transport p t [facility] ? Info or Referral ? Discharge Planning Depending on imaging today, pt should be able to d/c tomorrow. PT and OT have s een pt today, and his family would be available to transport pt, once he is medi sterling cleared to d/c. Pt has been cleared to d/c to [facility]; pt's family anxious to leave this afternoon and Dr. Weber is okay with having them d/c to I[facility]; however, [facility] expressing that it is too late in the day. Family prepared to get on the road as early as possible tomorrow. SW notified t he team that they wish to leave by 9:00a tomorrow 04/04/19, with family transport . [facility]: (Clinically accepted) [address] [place] [address] (M-F) / [phone] (S-S) [phone] ? Medication Needs ? Financial ? Legal ? Other Disposition ? Expected Discharge Date Expected Discharge Date: 04/03/19 Expected Discharge Time: 1300 ? Transportation Does the patient need discharge transport arranged?: No Transportation Name, Phone and Availability #1: Transportation Name, Phone and Availability #2: facility Does the patient use Medicaid Transportation?: No ? Next Level of Care (Acute Psych discharges only) ? Discharge Disposition Durable Medical Equipment No service has been selected for the patient. [facility] No service has been selected for the patient. Home Care No service has been selected for the patient. Dialysis/Infusion No service has been selected for the patient. Cher Price LMSW *[phone] * Case Mgmt DC Plan - Cher Price - 04/01/2019 10:20 AM CDT Weekend SW attempted to prepare pt and family to d/c to [facility]; however, primary t eam stating that they have additional imaging that he is scheduled for, for shilpa . Pt will not d/c today. SW will notify [facility] of pt's disposi tion. -Cher Price LMSW *[phone] * Procedures (Immed Post or Bedside) - Niall Donovan MD - 03/30/2019 5:22 PM CDT Immediate Post Procedure Note 03/30/19 Attending Physician: Ton Weber MD Automotive Manager(s): Niall Donovan MD Procedure(s): Dx angiogram Indications: Large dolicoectatic vertebro-basilar aneurysm Findings: Difficult study with patient unable to hold position and communicate d ue to difficulty hearing. Difficult arch - had to abort case with minimal info rmation but large basilar aneurysm seen. Will plan to repeat study with anesthe ebenezer and radial access next week. Anesthesia: conscious sedation Sedation/Medication Plan: per nursing charts Time out performed: Consent obtained, correct patient verified, correct procedur e verified, correct site verified, patient marked as necessary. Estimated Blood Loss: None/Negligible Specimen(s) Removed/Disposition: None Complications: None Comments: Closure with angioseal. MRI w/o contrast, MRA w/wo contrast tomorrow. Will need contrast pre-medication for tomorrow. Niall Donovan MD [phone] * Anesthesia Post Op Day 1 - Ismael Cannon, JADEN - 03/30/2019 10:48 AM CDT Anesthesia Follow-Up Evaluation: Post-Procedure Day One Name: Estrada Godoy : 1935 Age: 84 y.o. Sex: male Procedure Date: 03/29/2019 Procedure: Procedure(s) with comments: CREATION SHUNT - VENTRICULO-PERITONEAL - CASE LENGTH 1 HOUR, DR. GERMAIN TO ASSIST , REQUEST 1ST START Physical Assessment Height: 182.9 cm (72") Weight: 95.3 kg (210 lb 1.6 oz) Vital Signs (Last Filed in 24 hours) BP: 136/77 (03/30 806) Temp: 36.6 C (97.9 F) (03/30 806) Pulse: 54 (03/30 806) Respirations: 16 PER MINUTE (03/30 806) SpO2: 100 % (03/30 806) O2 Delivery: CPAP/BiPAP (Pt Owned) (03/30 806) SpO2 Pulse: 55 (03/29 1447) Patient History Allergies Allergies Allergen Reactions Contrast Dye Iv, Iodine Containing [Iodinated Contrast- Oral And Iv Dye] ITC JACKSON Medications Scheduled Meds: allopurinol (ZYLOPRIM) tablet 100 mg 100 mg Oral QDAY amiodarone (CORDARONE) tablet 200 mg 200 mg Oral TID atorvastatin (LIPITOR) tablet 40 mg 40 mg Oral QDAY ceFAZolin (ANCEF) IVP 2 g 2 g Intravenous Q8H* cholecalciferol (VITAMIN D-3) tablet 1,000 Units 1,000 Units Oral QDAY citalopram (CELEXA) tablet 40 mg 40 mg Oral QDAY docusate (COLACE) capsule 100 mg 100 mg Oral BID losartan (COZAAR) tablet 50 mg 50 mg Oral QDAY melatonin tablet 5 mg 5 mg Oral QHS milk of magnesia (CONC) oral suspension 10 mL 10 mL Oral QDAY pantoprazole DR (PROTONIX) tablet 40 mg 40 mg Oral QDAY rOPINIRole (REQUIP) tablet 0.25 mg 0.25 mg Oral QHS senna (SENOKOT) tablet 1 tablet 1 tablet Oral BID spironolactone (ALDACTONE) tablet 25 mg 25 mg Oral QDAY tamsulosin (FLOMAX) capsule 0.4 mg 0.4 mg Oral QDAY Continuous Infusions: PRN and Respiratory Meds:acetaminophen Q6H PRN, bisacodyl QDAY PRN, ondansetron (ZOFRAN) IV Q6H PRN Diagnostic Tests Hematology: Lab Results Component Value Date HGB 12.1 03/30/2019 HCT 34.7 03/30/2019 PLTCT 179 03/30/2019 WBC 8.1 03/30/2019 NEUT 80 03/30/2019 ANC 6.50 03/30/2019 ALC 1.20 03/30/2019 KAT 6 03/30/2019 AMC 0.50 03/30/2019 EOSA 0 03/30/2019 ABC 0.00 03/30/2019 MCV 88.2 03/30/2019 MCH 30.8 03/30/2019 MCHC 34.9 03/30/2019 MPV 8.5 03/30/2019 RDW 14.5 03/30/2019 General Chemistry: Lab Results Component Value Date NA 138 03/30/2019 K 4.2 03/30/2019 CL 108 03/30/2019 CO2 22 03/30/2019 GAP 8 03/30/2019 BUN 19 03/30/2019 CR 1.06 03/30/2019 GLU 113 03/30/2019 CA 9.0 03/30/2019 Coagulation: Lab Results Component Value Date PTT 34.3 03/26/2019 INR 1.1 03/29/2019 Follow-Up Assessment Patient location during evaluation: floor Anesthetic Complications: Anesthetic complications: The patient did not experience any anesthestic complic ations. Pain: Score: 0 Management:adequate Level of Consciousness: awake and alert Hydration:acceptable (IV hydration. ) Airway Patency: patent Respiratory Status: acceptable and room air Cardiovascular Status:acceptable and stable Regional/Neuroaxial: Comments: Patient just finished ambulating floor and was up in chair. Is NPO for angiogram, but denies PONV. * Case Mgmt DC Plan - Cher Price - 03/30/2019 10:26 AM CDT Case Management Progress Note NAME:Estrada Godoy :1935 AGE: 84 y.o. ADMISSION DATE: 03/26/2019 DAYS ADMITTED: LOS: 4 days Todays Date: 03/30/2019 Plan MIRLANDE met with the neurosurgery team regarding POC and d/c planning. Mr. Godoy is going to IR today for additional scans, per Dr. Weber's request. Pt does have a contrast allergy, and will likely not be ready until the very end of the day for possible d/c to [facility]. [facility] I[facility], has clinically accepted pt, but cannot accept after 4 :00 today. [facility] is able to admit on Tuesday04/01/19, however. SW has spoken with the family, who will be available to transport on Tuesday, and are agreeable to this plan. Interventions ? Support Pt's and 2 adult daughters plan to be here on Tuesday morning to transport [facility]. ? Info or Referral ? Discharge Planning Weekend SW to call the discharge coordinator to verify when pt is to d/c (anytime Tuesday) is appropriate, if team is agreeable. Family ( and two adult daughter) to provide transportation. Weekend SW/Bedside RN: banquet prep cook: [phone] Dr. Fernandez: [phone] Orders [facility]: (Clinically accepted) [address] [place] [address] ? Medication Needs ? Financial ? Legal ? Other Disposition ? Expected Discharge Date Expected Discharge Date: 04/01/19 Expected Discharge Time: 1300 ? Transportation Does the patient need discharge transport arranged?: No Transportation Name, Phone and Availability #1: Transportation Name, Phone and Availability #2: facility Does the patient use Medicaid Transportation?: No ? Next Level of Care (Acute Psych discharges only) ? Discharge Disposition Durable Medical Equipment No service has been selected for the patient. Destination No service has been selected for the patient. Home Care No service has been selected for the patient. Dialysis/Infusion No service has been selected for the patient. Cher Price, [facility] *[phone] * Response Teams - Juan C Dempsey RN - 03/29/2019 6:46 PM CDT GIS MAPPING TECHNICIAN Follow up @ 1845: The patient is resting comfortably in bed eating dinner wi th his family at the bedside. CT negative. Per the patient's family and his prim josiah RN (Skip Suggs), he has not had any further episodes of confusion/staring. The RN and family denied any further concerns at this time. * Response Teams - Sharon Loco RN - 03/29/2019 5:00 PM CDT Rapid Response Team Progress Note Date: 03/29/2019 Time: 5:01 PM Patient: Estrada Godoy Attending: Ton Weber MD Service: Surgery-Neuro Admission Date: 03/26/2019 LOS: 3 days A Code/Rapid Response Timeline Event Report has been created for this patient on 03/29/19 at 1639. GIS MAPPING TECHNICIAN called to bedside for concern of patient having staring episodes and delayed responses. Family at bedside reporting patient confused. Upon GIS MAPPING TECHNICIAN arrival patie nt A&Ox3, which is patient's baseline per report. Neurosurgery at bedside to assess patient. Patient moves all extremities equally and family reports his confusion has improved. Glucose 141. Patient to have post operative CT head completed. GIS MAPPING TECHNICIAN to follow up in approximately 2 hours per standard. Updated IKE Enriquez. Sharon Loco RN * Operative Report (Direct Entry) - Ritu Palma MD - 03/29/2019 12:51 PM CDT OPERATIVE REPORT Name: Estrada Godoy is a 84 y.o. male : 1935 DATE OF OPERATION: 03/29/2019 Surgeon(s) and Role: * Ton Weber MD - Primary * Abdi Germain MD - Assisting * Mario Pereyra MD - Resident - Assisting * Burke Medina MD - Resident - Assisting * Paris Whiting MD - Resident - Assisting * Ritu Palma MD - Resident - Assisting Preoperative Diagnosis: NPH (normal pressure hydrocephalus) [G91.2] Post-op Diagnosis * NPH (normal pressure hydrocephalus) [G91.2] Procedure(s) (LRB): CREATION SHUNT - VENTRICULO-PERITONEAL (Right) Anesthesia Type: General Description and Findings of Operative Procedure: Dr. Germain was called into the operating room to perform the abdominal portion of the ventriculo-peritoneal procedure. The patient was previously prepped and dr montalvo and undergoing surgical intervention by neurosurgery. Using a scalpel, a 5m m incision was created superior to the umbilicus. Through this incision a 5mm tr ocar with 5mm optiview camera was used to access the peritoneal cavity under dir ect visualization. Pneumoperitoneum was established. The intraabdominal viscera were inspected and there was no evidence of trocar injury. A Codman split trocar was brought into the abdomen via direct visualization through a separate 3mm in cision that was previously placed by neurosurgery from where they subcutaneously tunneled the shunt. Once in place, the shunt was placed through this under dire ct visualization confirming intraperitoneal placement. Pneumoperitoneum was rele ased and both trocars were removed. The skin incisions were each closed with sim ple subcuticular stitches using 4-0 Monocryl suture followed by Dermabond. At th e completion of our portion of the case all counts were correct. The patient was then turned back to neurosurgical team for completion of the case. Please see n [facility] dictation for all other portions of the case. Dr. Germain was present and actively participating throughout the entirety of the procedure. Estimated Blood Loss: 1cc. Specimen(s) Removed/Disposition: * No specimens in log * Ritu Palma MD Pager [phone] * Operative Report (Direct Entry) - Paris Whiting MD - 03/29/2019 12:51 PM CDT NEUROSURGERY OPERATIVE REPORT [facility] [address]. [place], [place] [address] PATIENT NAME: Estrada Godoy MR#/PT#: [id number] DATE: 1935 DATE OF OPERATION: 03/29/19 SURGEON: Ton Weber MD CO-SURGEON: Abdi Germain MD EDUCATION REVIEWER(S): Mario Pereyra MD Jack, Megan, MD PREOPERATIVE DIAGNOSIS: 1. NPH (normal pressure hydrocephalus) [G91.2] POSTOPERATIVE DIAGNOSIS: Same. OPERATIVE PROCEDURE: 1. Left ventriculoperitoneal shunt placement ANESTHESIA: General INDICATIONS FOR OPERATIVE PROCEDURE: Please see full dictated H and P.Briefl y, the patient is an 84 year old male that presents with gait instability, urina ry incontinence, and cognitive decline concerning for normal pressure hydrocepha madhu. 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 The patient was offered a ventriculoperitoneal shunt for treatme nt. The benefits, alternatives, and potential complications including bleeding, infection, damage to surrounding structures, neurologic impairment, seizure, st roke, the need for future surgeries/procedures, anesthesia complications, and de ath were all discussed. Informed consent was obtained. DESCRIPTION AND FINDINGS OF OPERATIVE PROCEDURE: Findings: Consistent with preoperative diagnosis.Clear CSF. Opening pressure 10. Description: The patient was brought back to the operating room. The patient was placed supi ne on the operating table. All pressure points were carefully padded. The lilly ent was placed under general anesthesia by the anesthesia service. The head was placed in a horseshoe packerhead machine operator. The hair was clipped near Sridevi's point on the left. The patient was then prepped and draped in a standard sterile fashio n. A timeout was then performed. 1% Lidocaine with epinephrine was used to infiltrate the skin. A 15 blade scalp el was used to make skin incision. The skin knife was used to dissect down to t he level of the bone. The periosteum was cleared from the site of the planned b urrhole. The physical science professor was used to make a burrhole. A uterine clamp was used to create a pocket for the valve. An incision was then made in the neck. The shunt passer was then passed from the cranial incision t o the neck incision. The shunt was then passed through. Next the shunt passer was passed from the neck incision down the chest and into the abdomen subcutaneo usly. A small incision over the end of the shunt passer was made with a 15-blad e. The distal catheter was then passed between the neck and exited the abdomen. Next the dura was opened using an 11-blade. The ventricular catheter was then p assed using anatomic landmarks to a depth of 4 cm. The proximal catheter was th en soft passed through the prior site to a depth of 5.5 cm. There was good flow of CSF from the catheter. A manometer was then connected to the ventricular ca theter and the opening pressure was measured at 10. A Eniramman Certas valve was previously set at 5. The proximal catheter was then c ut to size and connected to the valve. This was held into place with a silk tie . CSF flow from the distal catheter was confirmed. The distal catheter was the n placed in the abdomen endoscopically by the General Surgery team. This will b e dictated in a separate operative report. Attention was then turned to closure. The area was copiously irrigated with ant ibiotic irrigation. The galea layer was closed using interrupted 2-0 Vicryl sut ures. Skin was closed with 4-0 monocryl. All sponge counts, needle counts, and instrument counts were correct at the end of the case 2. The patient was martin sported to the PACU in stable condition. Patient was accompanied to the next level of care. A verbal handoff of the eleme nts of the post-procedure note including orders and instructions was completed. ESTIMATED BLOOD LOSS: 25 mL SPECIMENS REMOVED: None * No specimens in log * DRAINS: None IMPLANTS: Codman Bactiseal ventricular catheter, Codman Certas valve set at 5, and Codman Bactiseal distal catheter COMPLICATIONS: None Associated attestation - Ton Weber MD - 04/30/2019 11:30 AM CDT ATTESTATION I performed this procedure with a resident. Staff name: Ton Weber MD Date: 04/30/2019 * Case Mgmt DC Plan - Cher Price - 03/29/2019 11:40 AM CDT Case Management Progress Note NAME:Estrada Godoy :1935 AGE: 84 y.o. ADMISSION DATE: 03/26/2019 DAYS ADMITTED: LOS: 3 days Todays Date: 03/29/2019 Plan MIRLANDE met with the neurosurgery team regarding POC and d/c planning. Mr. Godoy is scheduled for a shunt placement today and should be medically stable to d/c t o an IPR tomorrow. MIRLANDE has asked therapy to try and see pt today vs first thing tomorrow morning, so that pt can d/c to [facility] in [place]. Mr. Godoy has been clinically accepted to [facility]; family is able to tra nsport, if therapy is in agreement that pt is safe to transport with family. Interventions ? Support Mr. Godoy' is able to provide 24 hour care, but limited physical assist ance. Furthermore, their daughter can also provide intermittent support. ? Info or Referral ? Discharge Planning Mr. Godoy is scheduled for shunt placement today 03/29/[address] acement on 03/30/19. SW will need to ask therapy whether or not they recommend p t to ride in private car with family vs w/c transportation. [facility]: (Clinically accepted) [address] [place] [address] (M-F) / [phone] (S-S) [phone] ? Medication Needs ? Financial ? Legal ? Other Disposition ? Expected Discharge Date Expected Discharge Date: 03/30/19 Expected Discharge Time: 1300 ? Transportation Does the patient need discharge transport arranged?: No Transportation Name, Phone and Availability #1: Transportation Name, Phone and Availability #2: facility Does the patient use Medicaid Transportation?: No ? Next Level of Care (Acute Psych discharges only) ? Discharge Disposition Durable Medical Equipment No service has been selected for the patient. Destination No service has been selected for the patient. Home Care No service has been selected for the patient. Dialysis/Infusion No service has been selected for the patient. Cher Price, [facility] *[phone] * Care Plan - Alie Joya, RN - 03/29/2019 4:39 AM CDT Problem: Self-Care Deficit Goal: Maximize ADL functioning Outcome: Goal Ongoing Pt needs moderate assist to complete adls Problem: Falls, High Risk of Goal: Absence of falls-Adult Patient Outcome: Goal Ongoing Pt fall bundle in place. Pt is impulsive. Educated to call before getting up * Case Mgmt DC Plan - Kiley Girard - 03/28/2019 10:46 AM CDT UR COORDINATOR Note: Sent referral to [facility] IPR per the request of [facility] Cher Price. Kiley Girard Quality Control Clerk For additional assistance, please contact [facility] Cher Price [phone] * Case Mgmt DC Plan - Cher Price - 03/28/2019 10:27 AM CDT Case Management Progress Note NAME:Estrada Godoy :1935 AGE: 84 y.o. ADMISSION DATE: 03/26/2019 DAYS ADMITTED: LOS: 2 days Todays Date: 03/28/2019 Plan SW met with the neurosurgery team regarding POC and d/c planning. Mr. Godoy is anticipated to be medically stable for d/c Tuesday03/30/19. SW met with pt's family, who are requesting that pt be considered for [facility]. SW sent a referral today for possible admission Tuesday (after sh unt placement ). Interventions ? Support Mr. Godoy' is able to provide 24 hour care, but limited physical assist ance. Furthermore, their daughter can also provide intermittent support. ? Info or Referral ? Discharge Planning Mr. Godoy is scheduled for shunt placement tomorrow 03/29/19 and possibly IPR placement on 03/30/19. SW will need to ask therapy whether or not they recommen d pt to ride in private car with family vs w/c transportation. [facility]: [address] [place] [address] (M-F) / [phone] (S-S) [phone] ? Medication Needs ? Financial ? Legal ? Other Disposition ? Expected Discharge Date Expected Discharge Date: 03/30/19 Expected Discharge Time: 1300 ? Transportation Does the patient need discharge transport arranged?: No Transportation Name, Phone and Availability #1: Transportation Name, Phone and Availability #2: facility Does the patient use Medicaid Transportation?: No ? Next Level of Care (Acute Psych discharges only) ? Discharge Disposition / Durable Medical Equipment No service has been selected for the patient. Destination No service has been selected for the patient. Home Care No service has been selected for the patient. Dialysis/Infusion No service has been selected for the patient. Cher Price, [facility] *[phone] * Case Mgmt DC Plan - Jannie Lugo - 03/27/2019 1:31 PM CDT Case Management Admission Assessment NAME:Estrada Godoy : 1935 AGE: 84 y.o. ADMISSION DATE: 03/26/2019 DAYS ADMITTED: LOS: 1 day Todays Date: 03/27/2019 Source of Information: pt's Lindsay Plan Plan: Case Management Assessment, Assist PRN with SW/NCM Services, Discharge Claudia nning for Home Anticipated SW met with pt at the bedside to complete admission assessment on this date. SW introduced self, provided contact information and explaned SW/NCM roles. SW al so provided Reviewed [facility], Preparing for Discharge, and Preferred Provider Network hand-outs. SW provided opportunity for questions and discussio n. Pt/family encouraged to contact Case Management team with questions and chau rns during hospitalization and until patient is able [facility]. Pt's pt was needing more assistance at home prior to admission, specificall y with getting up and down from sitting. Pt has a history of IPR at [facility] in [place], but denies any further needs at this time. Pt to OR tomorrow. Pr imary SW and RNCM to follow for discharge planning. Patient Address/Phone [address] [phone] (home) Emergency Contact Extended Emergency Contact Information Primary Emergency Contact: Lindsay Godoy [facility] Mobile Relation: Spouse Secondary Emergency Contact: Dori Can Mobile Relation: Daughter Preferred language: NIGERIEN Television Tube Inspector needed? No Healthcare Directive Healthcare Directive: Yes, patient has a healthcare directive Type of Healthcare Directive: Durable power of attorney recruiter for healthcare Location of Healthcare Directive: Copy in paper chart Would patient like to fill out a (a new) Healthcare Directive?: No, patient decl ined Psych Advance Directive (Psych unit only): No, patient does not have a Psych Adv ance Directive Transportation Does the patient need discharge transport arranged?: No Transportation Name, Phone and Availability #1: Transportation Name, Phone and Availability #2: facility Does the patient use Medicaid Transportation?: No Expected Discharge Date Expected Discharge Date: 04/02/19 Expected Discharge Time: 1300 Living Situation Prior to Admission ? Living Arrangements Type of Residence: Home, independent Living Arrangements: Spouse/significant other Bathroom Shower / Tub: Walk-in Shower How many levels in the residence?: 1 Can patient live on one level if needed?: Yes Does residence have entry and/or side stairs?: Yes(3) Assistance needed prior to admit or anticipated on discharge: No ? Level of Function Prior level of function: Independent(Pt's he was starting to need more assi stance due to weakness prior to admission.) ? Cognitive Abilities Cognitive Abilities: Continue to Assess Financial Resources ? Coverage Primary Insurance: Medicare(A&B) Secondary Insurance: Medicare Supplement(BCBS) Additional Coverage: RX(Aetna) ? Source of Income Source Of Income: Other mcfp income ? Financial Assistance Needed? n/a Psychosocial Needs ? Mental Health Mental Health History: No ? Substance Use History Substance Use History Screen: No ? Other none Current/Previous Services ? PCP Lesley Butcher, , ? Pharmacy [place] [address] [address] [address] ? Durable Medical Equipment Durable Medical Equipment at home: Single Point Cane, Walker ? Home Health Receiving home health: No ? Hemodialysis or Peritoneal Dialysis Undergoing hemodialysis or peritoneal dialysis: No ? Tube/Enteral Feeds Receive tube/enteral feeds: No ? Infusion Receive infusions: No ? Private Duty Private duty help used: No ? Home and Community Based Services Home and community based services: No ? Jovany Dexter: N/A ? Hospice Hospice: No ? Outpatient Therapy PT: No OT: No STATION REPAIRER: No ? Snf Facility/Fci SNF: No NH: No ? Inpatient Rehab IPR: In the past Name of Facility: [facility] Would patient return for future services?: Yes ? [facility] Hospital LTACH: No ? Acute Hospital Stay Acute Hospital Stay: In the past Was patient's stay within the last 30 days?: No Jannie Lugo LMSW, AMELIE It Consulting Manager Pager: [phone] * Care Plan - Radha Bazan RN - 03/26/2019 8:35 PM CDT Problem: Falls, High Risk of Goal: Absence of falls-Adult Patient Outcome: Goal Ongoing ongoing documented in this encounter Plan of Treatment Not on filedocumented as of this encounter Procedures Comments Procedure Name Priority Date/Time Associated Diagnosis MRA HEAD WO/W CONTRAST Routine 04/03/2019 10:29 [...] METABOLIC PANEL Routine 03/30/2019 4:25 AM CDT ABDOMEN AP & LAT Routine 03/29/2019 10:48 PM CDT SKULL LIMITED < 4 VIEWS Routine 03/29/2019 10:48 PM CDT CHEST 2 VIEWS Routine 03/29/2019 10:48 PM CDT C SPINE 3 VIEWS OR LESS Routine 03/29/2019 10:[address] HEAD [...] INR (PT) Routine 03/27/2019 7:44 AM CDT CBC AND DIFF Routine 03/27/2019 3:47 AM CDT BASIC METABOLIC PANEL Routine 03/27/2019 3:47 AM CDT PTT (APTT) Routine 03/26/2019 1:12 PM CDT PROTIME INR (PT) Routine 03/26/2019 1:12 PM CDT CBC AND DIFF Routine 03/26/2019 1:12 PM CDT BASIC METABOLIC PANEL Routine 03/26/2019 1:12 PM CDT ECG 12-LEAD Routine 03/26/2019 12:05 PM CDT TELEMETRY STRIPS-SCAN 03/26/2019 12:00 AM CDT ECG-SCAN 03/26/2019 12:00 AM CDT documented in this encounter Results * MRA HEAD WO/W CONTRAST (04/03/2019 10:29 [...] imaging of the head was performed. 3D dbtv-ju-mqahsjtnwale of the [place] of [place] was performed prior to and [...] placed over the indwelling right-sided cochlear implant radioisotope technologist/stimulator and implanted fixation magnetic by Dr. Whiting [...] imaging of the head was performed. 3D xkfm-hq-kmwybt images of the [place] was performed prior to and [...] placed over the indwelling right-sided cochlear implant radioisotope technologist/stimulator and implanted fixation magnetic by Dr. Whiting [...] imaging of the head was performed. 3D hljs-ic-tmluyljaessl of the [place] was performed prior to and [...] placed over the indwelling right-sided cochlear implant radioisotope technologist/stimulator and implanted fixation magnetic by Dr. Whiting [...] imaging of the head was performed. 3D tegz-sk-rwuhdm images of the [place] was performed prior to and [...] placed over the indwelling right-sided cochlear implant radioisotope technologist/stimulator and implanted fixation magnetic by Dr. Whiting [...] IR ARTERIOGRAM NEURO (04/02/2019 12:09 PM CDT) Specimen Impressions Performed At 1. [facility] dol[facility]oectatic [...] suite for transradial approach under general anesthesia. SENIOR GRAPHIC DESIGNER. Gus EDUCATION REVIEWER. None ANESTHESIA. General PROCEDURE. Ultrasound guided radial [...] Heparin ~70 units/kg was administered intravenously. A 5-Tunisian [employer] Block-2 or Block-3 diagnostic catheter was introduced [...] angiography of the above named vessels. The TerumCorso TR radial armband was applied and inflated [...] from pathology. The branching superior cerebellar and RETAIL DEPARTMENT SUPERVISOR vessels appear within normal limits. Compared to [...] suite for transradial approach under general anesthesia. SENIOR GRAPHIC DESIGNER. Gus EDUCATION REVIEWER. None ANESTHESIA. General PROCEDURE. Ultrasound guided radial artery access Right radial artery arteriogram Right vertebral artery cervical Right vertebral artery cerebral including 3-D views Right common carotid arteriograms Right internal carotid arteriograms Left common carotid arteriograms Left internal carotid arteriograms ACCESS. Right radial artery HEMOSTASIS. Terumo TR Rupal PROCEDURE DETAIL. Prior to the procedure, the [...] Heparin ~70 units/kg was administered intravenously. A 5-Tunisian Terumo Block-2 or Block-3 diagnostic catheter was [...] from pathology. The branching superior cerebellar and RETAIL DEPARTMENT SUPERVISOR vessels appear within normal limits. Compared to [...] on 04/13/2019 10:54 AM. Performing Organization Address City/[facility] Cent[facility] Phone Number RAD RESULTS * TYPE & CROSSMATCH (04/02/2019 10:46 AM CDT) Units Ordered 0 MAIN LAB Crossmatch 04/05/2019 MAIN LAB Expires Record Check FOUND MAIN LAB ABO/RH(D) O POS MAIN LAB Antibody Screen NEG MAIN LAB Electronic YES MAIN LAB Crossmatch Specimen Blood Performing Organization Address [facility] Cent[facility]ode Phone Number MAIN LAB [address] [place] [address] * CBC AND DIFF (04/01/2019 4:28 AM CDT) White Blood 6.8 4.5 - 11.0 K/UL MAIN LAB Cells RBC 3.87 (L) 4.4 - 5.5 M/UL MAIN LAB Hemoglobin 11.9 (L) 13.5 - 16.5 GM/DL MAIN LAB Hematocrit 34.8 (L) 40 - 50 % MAIN LAB MCV 90.1 80 - 100 FL MAIN LAB MCH 30.7 26 - 34 PG MAIN LAB MCHC 34.1 32.0 - 36.0 G/DL MAIN LAB RDW 14.8 11 - 15 % MAIN LAB Platelet Count 178 150 - 400 K/UL MAIN LAB MPV 7.9 7 - 11 FL MAIN LAB Neutrophils 61 41 - 77 % MAIN LAB Lymphocytes 30 24 - 44 % MAIN LAB Monocytes 6 4 - 12 % MAIN LAB Eosinophils 3 0 - 5 % MAIN LAB Basophils 0 0 - 2 % MAIN LAB Absolute 4.10 1.8 - 7.0 K/UL MAIN LAB Neutrophil Count Absolute Lymph 2.00 1.0 - 4.8 K/UL MAIN LAB Count Absolute 0.40 0 - 0.80 K/UL MAIN LAB Monocyte Count Absolute 0.20 0 - 0.45 K/UL MAIN LAB Eosinophil Count Absolute 0.00 0 - 0.20 K/UL MAIN LAB Basophil Count Specimen Blood Performing Organization Address City/[facility] Centercode Phone Number MAIN LAB [address] [place] [address] * BASIC METABOLIC PANEL (04/01/2019 4:28 AM CDT) Pathologist [facility] Sodium 139 137 - 147 MMOL/L [facility] [...] (L) >60 mL/min KU MAIN LAB Comment: Spanish The eGFR is not validated for use in drug dosing adjustments.Continue to use estimated creatinine clearance per dosing reference text.Please contact the Clinical Pharmacist for questions. eGFR >60 >60 mL/min [facility] MAIN LAB Spanish Comment: The eGFR is not validated for use in drug dosing adjustments.Continue to use estimated creatinine clearance per dosing reference text.Please contact the Clinical Pharmacist for questions. Specimen Blood Performing Organization Address City/State/Zipcode Phone Number MAIN LAB [address] [place] [address] * CBC AND DIFF (03/31/2019 4:00 AM CDT) [facility] White Blood 7.4 4.5 - 11.0 K/UL [facility] Cells RBC 3.84 (L) 4.4 - 5.5 M/UL [facility] Hemoglobin 11.7 (L) 13.5 - 16.5 GM/DL [facility] Hematocrit 34.6 (L) 40 - 50 % [facility] MCV 90.1 80 - 100 FL [facility] MCH 30.4 26 - 34 PG [facility] MCHC 33.8 32.0 - 36.0 G/DL [facility] RDW 14.4 11 - 15 % [facility] Platelet Count 189 150 - 400 K/UL [facility] MPV 8.1 7 - 11 FL [facility] Neutrophils 73 41 - 77 % [facility] Lymphocytes 20 (L) 24 - 44 % [facility] Monocytes 6 4 - 12 % [facility] Eosinophils 1 0 - 5 % [facility] Basophils 0 0 - 2 % [facility] Absolute 5.40 1.8 - 7.0 K/UL [facility] Neutrophil Count Absolute Lymph 1.50 1.0 - 4.8 K/UL [facility] Count Absolute 0.40 0 - 0.80 K/UL [facility] Monocyte Count Absolute 0.10 0 - 0.45 K/UL [facility] Eosinophil Count Absolute 0.00 0 - 0.20 K/UL [facility] Basophil Count Specimen Blood Performing Organization Address City/[facility]/Zipcode Phone Number MAIN LAB [address] [place] [address] * BASIC METABOLIC PANEL (03/31/2019 4:00 AM CDT) Sodium 137 137 - 147 MMOL/L [facility] Potassium 4.0 3.5 - 5.1 MMOL/L [facility] Chloride 106 98 - 110 MMOL/L [facility] CO2 24 21 - 30 MMOL/L [facility] Anion Gap 7 3 - 12 [facility] Glucose 108 (H) 70 - 100 MG/DL [facility] Blood Urea 20 7 - 25 MG/DL [facility] Nitrogen Creatinine 1.16 0.4 - 1.24 MG/DL [facility] Calcium 9.2 8.5 - 10.6 MG/DL [facility] eGFR Non >60 >60 mL/min [facility] Comment: Spanish The eGFR is not validated for use in drug dosing adjustments.Continue to use estimated creatinine clearance per dosing reference text.Please contact the Clinical Pharmacist for questions. eGFR >60 >60 mL/min [facility] Spanish Comment: The eGFR is not validated for use in drug dosing adjustments.Continue to use estimated creatinine clearance per dosing reference text.Please contact the Clinical Pharmacist for questions. Specimen Blood Performing Organization Address City/[facility] Phone Number MA[facility] LAB [address] [place] [address] * IR ARTERIOGRAM NEURO (03/30/2019 4:26 PM CDT) Specimen Impressions Performed At 1. 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 Formal characterization of the aneurysm will require repeat angiography under general anesthesia via radial access. ATTESTATION: I attest that I performed the entire procedure from beginning to end and am responsible for the image interpretations. Finalized by Ton Weber M.D. on 04/13/2019 10:52 AM. Dictated by Ton Weber M.D. on 04/13/2019 10:42 AM. Narrative Performed At CLINICAL HISTORY: Patient with a giant fusiform dolichoectatic aneurysm of the [facility] RESULTS vertebral basilar system is brought the angiography suite for formal evaluation. SENIOR GRAPHIC DESIGNER. Gus EDUCATION REVIEWER. Niall Donovan, PGY 7 ANESTHESIA. Local with Sedation PROCEDURE. Ultrasound guided access common femoral artery Right common carotid arteriograms Right common carotid cerebral arteriograms Left vertebral artery cervical arteriograms Left vertebral artery cerebral arteriograms Left subclavian arteriograms Left brachial arteriograms Right brachiocephalic arteriograms Aortic arch aortogram ACCESS. Right common femoral HEMOSTASIS. Exo-Seal PROCEDURE DETAIL. The patient was brought to the angiography suite and placed supine on the table. Conscious sedation with Versed and Fentanyl was performed. Both groins were prepped and draped in the usual sterile fashion. The access site on the femoral artery was located by palpation and fluoroscopy. Ultrasound was utilized to gain arterial access to the common femoral artery. The ultrasound demonstrates the vessel is widely patent. The ultrasound image is saved and stored on PACs system.A microaccess kit was used to enter the common femoral artery. A common femoral angiogram was obtained. The Seldinger technique was used to place a 5-F sheath in the femoral artery. All bubbles were meticulously withdrawn and the sheath was carefully flushed and attached to continuous heparinized saline flush system. Similar attention was paid each subsequent sheath, catheter or microcatheter utilized to insure maintain an air free system. A 5-Tunisian diagnostic catheter was introduced through the sheath.Utilizing a combination of roadmap, guidewire and direct catheter access techniques, a 5 Tunisian diagnostic catheter was used to perform diagnostic angiography. The patient's anatomy proved highly tortuous. A Block type catheters were required. Ultimately however due to a combination of vessel tortuosity and patient's poor compliance under conscious sedation, formal characterization of the aneurysm was not achievable. Preparations were made to repeat the study under general anesthesia via radial access. In preparation, angiography of the right brachial artery was performed and an arch aortogram was performed. The catheter and sheath were removed and hemostasis was achieved with the Exo-Seal closure device. A sterile compressive dressing was applied. FINDINGS: Right common carotid. The proximal course of the right common carotid artery is highly tortuous. Mild luminal irregularities involve the proximal course. Mild after chronic involvement the level the bulb with no associated stenosis. Right common carotid cerebral. 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 The remainder of the imaging of the right internal carotid circulation is unremarkable. The MCA and JAMES vessels fill robustly. No significant P-comm artery is identified and therefore the giant dolichoectatic aneurysm of the vertebral basilar system is not identified on these injections. The venous phase is unremarkable. Left subclavian artery. The proximal left subclavian artery demonstrates acute tortuosity but no significant stenosis. The proximal course of the left vertebral artery demonstrates significant tortuosity. There is no associated stenosis. The distal cervical course demonstrates moderate tortuosity with no associated stenosis. Left vertebral artery. The giant fusiform dolichoectatic vertebrobasilar aneurysm is visualized on several injections. Due to patient's poor compliance under conscious sedation motion artifact is substantial. Further due to tortuosity of the vascular system direct injection of the vertebral artery was not achievable. Therefore characterization of the aneurysm is incomplete and is better described on subsequent study the radial access under general anesthesia. Left brachial artery. Angiography the brachial artery of on the left was performed to assess for the possibility of future radial access. The vessel appears free from significant tortuosity. No significant stenosis is identified. The caliber is suitable for catheter access if necessary. Right brachiocephalic. The brachiocephalic artery demonstrates substantial tortuosity as it transitions into the subclavian. Access to the radial artery was not achievable by transfemoral approach. Aortic arch. The caliber of the aorta in the region of the aortic arch is notably dilated being on the order 40 to 45 mm. The branching pattern of the great vessels is normal. Proximal tortuosity of all of the great vessels is demonstrated. 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 SENIOR GRAPHIC DESIGNER. Gus EDUCATION REVIEWER. Niall Donovan, PGY 7 ANESTHESIA. Local with Sedation PROCEDURE. Ultrasound guided access common femoral artery Right common carotid arteriograms Right common carotid cerebral arteriograms Left vertebral artery cervical arteriograms Left vertebral artery cerebral arteriograms Left subclavian arteriograms Left brachial arteriograms Right brachiocephalic arteriograms Aortic arch aortogram ACCESS. Right common femoral HEMOSTASIS. Exo-Seal PROCEDURE DETAIL. The patient was brought to the angiography suite and placed supine on the table. Conscious sedation with Versed and Fentanyl was performed. Both groins were prepped and draped in the usual sterile fashion. The access site on the femoral artery was located by palpation and fluoroscopy. Ultrasound was utilized to gain arterial access to the common femoral artery. The ultrasound demonstrates the vessel is widely patent. The ultrasound image is saved and stored on PACs system. A microaccess kit was used to enter the common femoral artery. A common femoral angiogram was obtained. The Seldinger technique was used to place a 5-F sheath in the femoral artery. All bubbles were meticulously withdrawn and the sheath was carefully flushed and attached to continuous heparinized saline flush system. Similar attention was paid each subsequent sheath, catheter or microcatheter utilized to insure maintain an air free system. A 5-Tunisian diagnostic catheter was introduced through the sheath. Utilizing a combination of roadmap, guidewire and direct catheter access techniques, a 5 Tunisian diagnostic catheter was used to perform diagnostic angiography. The patient's anatomy proved highly tortuous. A Block type catheters were required. Ultimately however due to a combination of vessel tortuosity and patient's poor compliance under conscious sedation, formal characterization of the aneurysm was not achievable. Preparations were made to repeat the study under general anesthesia via radial access. In preparation, angiography of the right brachial artery was performed and an arch aortogram was performed. The catheter and sheath were removed and hemostasis was achieved with the Exo- Seal closure device. A sterile compressive dressing was applied. FINDINGS: Right common carotid. The proximal course of the right common carotid artery is highly tortuous. Mild luminal irregularities involve the proximal course. Mild after chronic involvement the level the bulb with no associated stenosis. Right common carotid cerebral. 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 The remainder of the imaging of the right internal carotid circulation is unremarkable. The MCA and JAMES vessels fill robustly. No significant P-comm artery is identified and therefore the giant dolichoectatic aneurysm of the vertebral basilar system is not identified on these injections. The venous phase is unremarkable. Left subclavian artery. The proximal left subclavian artery demonstrates acute tortuosity but no significant stenosis. The proximal course of the left vertebral artery demonstrates significant tortuosity. There is no associated stenosis. The distal cervical course demonstrates moderate tortuosity with no associated stenosis. Left vertebral artery. The giant fusiform dolichoectatic vertebrobasilar aneurysm is visualized on several injections. Due to patient's poor compliance under conscious sedation motion artifact is substantial. Further due to tortuosity of the vascular system direct injection of the vertebral artery was not achievable. Therefore characterization of the aneurysm is incomplete and is better described on subsequent study the radial access under general anesthesia. Left brachial artery. Angiography the brachial artery of on the left was performed to assess for the possibility of future radial access. The vessel appears free from significant tortuosity. No significant stenosis is identified. The caliber is suitable for catheter access if necessary. Right brachiocephalic. The brachiocephalic artery demonstrates substantial tortuosity as it transitions into the subclavian. Access to the radial artery was not achievable by transfemoral approach. Aortic arch. The caliber of the aorta in the region of the aortic arch is notably dilated being on the order 40 to 45 mm. The branching pattern of the great vessels is normal. Proximal tortuosity of all of the great vessels is demonstrated. IMPRESSION 1. 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 Formal characterization of the aneurysm will require repeat angiography under general anesthesia via radial access. ATTESTATION: I attest that I performed the entire procedure from beginning to end and am responsible for the image interpretations. Finalized by Ton Weber M.D. on 04/13/2019 10:52 AM. Dictated by Ton Weber M.D. on 04/13/2019 10:42 AM. Performing Organization Address City/State/Zipcode Phone Number [facility] RES[facility] * CBC AND DIFF (03/30/2019 4:25 AM CDT) White Blood 8.1 4.5 - 11.0 K/UL [facility] Cells RBC 3.94 (L) 4.4 - 5.5 M/UL [facility] Hemoglobin 12.1 (L) 13.5 - 16.5 GM/DL [facility] Hematocrit 34.7 (L) 40 - 50 % [facility] MCV 88.2 80 - 100 FL [facility] MCH 30.8 26 - 34 PG [facility] MCHC 34.9 32.0 - 36.0 G/DL [facility] RDW 14.5 11 - 15 % [facility] Platelet Count 179 150 - 400 K/UL [facility] MPV 8.5 7 - 11 FL [facility] Neutrophils 80 (H) 41 - 77 % [facility] Lymphocytes 14 (L) 24 - 44 % [facility] Monocytes 6 4 - 12 % [facility] Eosinophils 0 0 - 5 % [facility] Basophils 0 0 - 2 % [facility] Absolute 6.50 1.8 - 7.0 K/UL [facility] Neutrophil Count Absolute Lymph 1.20 1.0 - 4.8 K/UL [facility] Count Absolute 0.50 0 - 0.80 K/UL [facility] Monocyte Count Absolute 0.00 0 - 0.45 K/UL [facility] Eosinophil Count Absolute 0.00 0 - 0.20 K/UL [facility] Basophil Count Specimen Blood Performing Organization Address City/[facility] Phone Number MAIN LAB [address] [place] [address] * BASIC METABOLIC PANEL (03/30/2019 4:25 AM CDT) Sodium 138 137 - 147 MMOL/L [facility] Potassium 4.2 3.5 - 5.1 MMOL/L [facility] Chloride 108 98 - 110 MMOL/L [facility] CO2 22 21 - 30 MMOL/L [facility] Anion Gap 8 3 - 12 [facility] Glucose 113 (H) 70 - 100 MG/DL [facility] Blood Urea 19 7 - 25 MG/DL [facility] Nitrogen Creatinine 1.06 0.4 - 1.24 MG/DL [facility] Calcium 9.0 8.5 - 10.6 MG/DL [facility] eGFR Non >60 >60 mL/min [facility] Comment: Spanish The eGFR is not validated for use in drug dosing adjustments.Continue to use estimated creatinine clearance per dosing reference text.Please contact the Clinical Pharmacist for questions. eGFR >60 >60 mL/min [facility] Spanish Comment: The eGFR is not validated for use in drug dosing adjustments.Continue to use estimated creatinine clearance per dosing reference text.Please contact the Clinical Pharmacist for questions. Specimen Blood Performing Organization Address City/[facility] Phone Number [facility] [address] [place] [address] * C SPINE 3 VIEWS OR LESS [...] PM CDT) Specimen Impressions Performed At 1.Intact INSTRUCTOR OF SOCIOLOGY shunt tubing without kink or fracture. KU [...] pneumothorax, or lobar consolidation. IMPRESSION 1. Intact INSTRUCTOR OF SOCIOLOGY shunt tubing without kink or fracture. 2. [...] on 03/30/2019 8:24 AM. Performing Organization Address City/State/Zipcode Phone Number [facility] RESULTS * ABDOMEN AP & LAT (03/29/2019 10:48 PM CDT) Specimen Impressions Performed At Intact abdominal segment of the INSTRUCTOR OF SOCIOLOGY shunt catheter with no evidence of kinking [...] quadrant. IMPRESSION Intact abdominal segment of the INSTRUCTOR OF SOCIOLOGY shunt catheter with no evidence of kinking or discontinuity. Status post aortobiiliac stent graft treatment for abdominal aortic aneurysm. Finalized by Juan Werner M.D. on 03/30/2019 7:13 AM. Dictated by Juan Werner M.D. on 03/30/2019 7:11 AM. 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 2.Persistent vertebrobasilar dolichoectasia with slightly enlarged giant fusiform basilar aneurysm artery (since November 16, 2017) and slight increased associated mass effect on the brainstem and cerebral aqueduct. 3.Mild nonspecific supratentorial white matter disease, likely due to chronic microvascular ischemia. Superimposed improving transependymal edema is also likely present. Finalized by Abdi Duran M.D. on 03/30/2019 7:12 AM. Dictated by Abdi Duran M.D. on 03/30/2019 7:04 AM. Narrative Performed At EXAM: CT HEAD [facility] RESULTS HISTORY: , VPS, TECHNIQUE: Multiple contiguous axial images were obtained of the brain without intravenous contrast. COMPARISON: CT head September 01, 2018 and MRI brain May 16, 2018, outside CT head March 22, 2019 FINDINGS: Dr. Abdi Duran M.D. has personally reviewed these images and formulated the interpretations and opinions expressed in this report. Interval left frontal approach ventricular peritoneal shunt catheter placement with tip projected in the body of the left lateral ventricle (abutting the basilar tip). 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 Persistent fusiform basilar artery aneurysm, measuring up to 2.4 cm in diameter, compared with 2 cm in diameter on November 16, 2017. There is mass effect and posterior displacement of the brainstem and effacement of the cerebral aqueduct. Resistant mild nonspecific subinsular white matter disease. Superimposed periventricular hypodensity likely reflects mild residual transependymal edema. There is no midline shift or herniation. No acute intracranial hemorrhage is identified. There is expected mild postprocedural pneumocephalus along the left frontal convexity. Greco-white matter interfaces are preserved. Indwelling right cochlear implantation device. Procedure Note Interface, Radiant Results - 03/30/2019 7:16 AM CDT EXAM: CT HEAD HISTORY: , VPS, TECHNIQUE: Multiple contiguous axial images were obtained of the brain without intravenous contrast. COMPARISON: CT head September 01, 2018 and MRI brain May 16, 2018, outside CT head March 22, 2019 FINDINGS: Dr. Abdi Duran M.D. has personally reviewed these images and formulated the interpretations and opinions expressed in this report. Interval left frontal approach ventricular peritoneal shunt catheter placement with tip projected in the body of the left lateral ventricle (abutting the basilar tip). 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 Persistent fusiform basilar artery aneurysm, measuring up to 2.4 cm in diameter, compared with 2 cm in diameter on November 16, 2017. There is mass effect and posterior displacement of the brainstem and effacement of the cerebral aqueduct. Resistant mild nonspecific subinsular white matter disease. Superimposed periventricular hypodensity likely reflects mild residual transependymal edema. There is no midline shift or herniation. No acute intracranial hemorrhage is identified. There is expected mild postprocedural pneumocephalus along the left frontal convexity. Greco-white matter interfaces are preserved. Indwelling right cochlear implantation device. IMPRESSION 1. 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 2. Persistent vertebrobasilar dolichoectasia with slightly enlarged giant fusiform basilar aneurysm artery (since November 16, 2017) and slight increased associated mass effect on the brainstem and cerebral aqueduct. 3. Mild nonspecific supratentorial white matter disease, likely due to chronic microvascular ischemia. Superimposed improving transependymal edema is also likely present. Finalized by Abdi Duran M.D. on 03/30/2019 7:12 AM. Dictated by Abdi Duran M.D. on 03/30/2019 7:04 AM. Performing Organization Address [facility] Phone Number RAD RESULTS * POC GLUCOSE (03/29/2019 4:43 PM CDT) Pathologist [facility] Glucose, POC 141 (H) 70 - 100 MG/DL MAIN LAB Specimen Performing Organization Address [facility] Phone Number MAIN LAB [address] [phone] * PROTIME INR (PT) (03/29/2019 7:28 AM CDT) [facility] INR 1.1 0.8 - 1.2 MAIN LAB Specimen Blood Performing Organization Address [facility] Phone Number MAIN LAB [address] [phone] * CBC AND DIFF (03/29/2019 4:04 AM CDT) Pathologist [facility] White Blood 6.3 4.5 - 11.0 K/UL MAIN LAB Cells RBC 4.11 (L) 4.4 - 5.5 M/UL MAIN LAB Hemoglobin 12.6 (L) 13.5 - 16.5 GM/DL MAIN LAB Hematocrit 35.8 (L) 40 - 50 % [facility] MCV 87.1 80 - 100 FL [facility] MCH 30.8 26 - 34 PG MAIN LAB MCHC 35.3 32.0 - 36.0 G/DL [facility] RDW 14.4 11 - 15 % [facility] Platelet Count 193 150 - 400 K/UL [facility] MPV 8.2 7 - 11 FL [facility] Neutrophils 57 41 - 77 % [facility] Lymphocytes 32 24 - 44 % [facility] Monocytes 7 4 - 12 % [facility] Eosinophils 4 0 - 5 % [facility] Basophils 0 0 - 2 % [facility] Absolute 3.50 1.8 - 7.0 K/UL [facility] Neutrophil Count Absolute Lymph 2.00 1.0 - 4.8 K/UL [facility] Count Absolute 0.40 0 - 0.80 K/UL MAIN LAB Monocyte Count Absolute 0.30 0 - 0.45 K/UL MAIN LAB Eosinophil Count Absolute 0.00 0 - 0.20 K/UL MAIN LAB Basophil Count Specimen Blood Performing Organization Address City/[facility]/Zipcode Phone Number MAIN LAB [address] [place] [address] * BASIC METABOLIC PANEL (03/29/2019 4:04 AM CDT) Sodium 139 137 - 147 MMOL/L MAIN LAB Potassium 3.9 3.5 - 5.1 MMOL/L [facility] Chloride 108 98 - 110 MMOL/L [facility] CO2 24 21 - 30 MMOL/L MAIN LAB Anion Gap 7 3 - 12 MAIN LAB Glucose 104 (H) 70 - 100 MG/DL MAIN LAB Blood Urea 18 7 - 25 MG/DL MAIN LAB Nitrogen Creatinine 1.21 0.4 - 1.24 MG/DL MAIN LAB Calcium 9.1 8.5 - 10.6 MG/DL MAIN LAB eGFR Non 57 (L) >60 mL/min MAIN LAB Comment: Spanish The eGFR is not validated for use in drug dosing adjustments.Continue to use estimated creatinine clearance per dosing reference text.Please contact the Clinical Pharmacist for questions. eGFR >60 >60 mL/min MAIN LAB Spanish Comment: The eGFR is not validated for use in drug dosing adjustments.Continue to use estimated creatinine clearance per dosing reference text.Please contact the Clinical Pharmacist for questions. Specimen Blood Performing Organization Address City/[facility] Phone Number [facility] [address] [place] [address] * BLOOD TYPE CONFIRMATION - ORDER ONLY IF REQUESTED BY LAB (03/28/2019 8:48 PM CDT) ABO/RH(D) O POS MAIN LAB Specimen Blood Performing Organization Address City/[facility]/Zipcode Phone Number MAIN LAB [address] [place] [address] * TYPE & CROSSMATCH (03/28/2019 7:25 PM CDT) Units Ordered 2 MAIN LAB Crossmatch 03/31/2019 KU [facility]IN [facility] Expires Record Check 2ND TYPE REQUIRED [facility] MAIN LAB ABO/RH(D) O POS [facility]IN [facility] Antibody Screen NEG [facility]IN [facility] Electronic YES MAIN LAB Crossmatch Specimen Blood Performing Organization Address City/[facility]/Zipcode Phone Number MAIN LAB [address] [place] [address] * CBC AND DIFF (03/28/2019 4:20 AM CDT) White Blood 6.2 4.5 - 11.0 K/UL [facility] MAIN [facility] Cells RBC 4.25 (L) 4.4 - 5.5 M/UL [facility] Hemoglobin 12.9 (L) 13.5 - 16.5 GM/DL [facility] Hematocrit 38.2 (L) 40 - 50 % [facility] MCV 89.9 80 - 100 FL [facility] MCH 30.3 26 - 34 PG [facility] MCHC 33.7 32.0 - 36.0 G/DL [facility] RDW 14.4 11 - 15 % [facility] Platelet Count 203 150 - 400 K/UL [facility] MPV 8.1 7 - 11 FL [facility]IN [facility] Neutrophils 57 41 - 77 % [facility] Lymphocytes 32 24 - 44 % [facility] Monocytes 6 4 - 12 % [facility] Eosinophils 5 0 - 5 % [facility]IN LAB Basophils 0 0 - 2 % [facility] Absolute 3.50 1.8 - 7.0 K/[facility] Neutrophil Count Absolute Lymph 1.90 1.0 - 4.8 K/[facility] Count Absolute 0.40 0 - 0.80 K/[facility] Monocyte Count Absolute 0.30 0 - 0.45 K/[facility] Eosinophil Count Absolute 0.00 0 - 0.20 K/UL [facility] Basophil Count Specimen Blood Performing Organization Address City/[facility]/Zipcode Phone Number MAIN LAB [address] [place] [address] * BASIC METABOLIC PANEL (03/28/2019 4:20 AM CDT) Sodium 139 137 - 147 MMOL/L [facility] Potassium 4.0 3.5 - 5.1 MMOL/L [facility] Chloride 106 98 - 110 MMOL/L [facility] CO2 26 21 - 30 MMOL/L [facility] Anion Gap 7 3 - 12 [facility] Glucose 106 (H) 70 - 100 MG/DL [facility] Blood Urea 20 7 - 25 MG/DL [facility] Nitrogen Creatinine 1.12 0.4 - 1.24 MG/DL [facility] Calcium 9.5 8.5 - 10.6 MG/DL [facility] eGFR Non >60 >60 mL/min [facility] Comment: Spanish The eGFR is not validated for use in drug dosing adjustments.Continue to use estimated creatinine clearance per dosing reference text.Please contact the Clinical Pharmacist for questions. eGFR >60 >60 mL/min [facility] Spanish Comment: The eGFR is not validated for use in drug dosing adjustments.Continue to use estimated creatinine clearance per dosing reference text.Please contact the Clinical Pharmacist for questions. Specimen Blood Performing Organization Address City/State/Zipcode Phone Number MAIN LAB [address] [place] [address] * 2-D + DOPPLER ECHOCARDIOGRAM (03/27/2019 10:35 [...] 0.07 m/s OTHER OUTSIDE LAB LVOT peak sarah 1.25 m/s OTHER OUTSIDE LAB LVOT peak [...] cm OTHER OUTSIDE LAB MV Peak A Sarah 0.56 m/s OTHER OUTSIDE LAB MV Peak E Sarah 0.45 m/s OTHER OUTSIDE PW LAB Right [...] area= LAB AV index 0.85 OTHER OUTSIDE ([place]) LAB E/A ratio 0.80 OTHER OUTSIDE LAB LVOT area 2.72 cm2 OTHER OUTSIDE LAB LVOT stroke 70.10 cm3 OTHER OUTSIDE volume LAB TV rest 21 mmHg OTHER OUTSIDE pulmonary LAB artery pressure E/E' ratio 6.43 OTHER OUTSIDE LAB Left Atrium 16.09 16 - 34 OTHER OUTSIDE Index LAB Cardiology Siemens [id number] OTHER OUTSIDE Ultrasound LAB Machine Left Ventricle [...] City/State/Zipcode Phone Number OTHER OUTSIDE LAB * PROTIME INR (PT) (03/27/2019 7:44 AM CDT) INR 1.9 (H) 0.8 - 1.2 [facility] Specimen Blood Performing Organization Address City/State/Zipcode Phone Number [facility] [address] [place] [address] * BASIC METABOLIC PANEL (03/27/2019 3:47 AM CDT) [facility] Sodium 138 137 - 147 MMOL/L [facility] Potassium 4.2 3.5 - 5.1 MMOL/L [facility] Chloride 106 98 - 110 MMOL/L [facility] CO2 25 21 - 30 MMOL/L [facility] Anion Gap 7 3 - 12 [facility] Glucose 109 (H) 70 - 100 MG/DL [facility] Blood Urea 17 7 - 25 MG/DL [facility] Nitrogen Creatinine 1.10 0.4 - 1.24 MG/DL [facility] Calcium 9.3 8.5 - 10.6 MG/DL [facility] eGFR Non >60 >60 mL/min [facility] Comment: Spanish The eGFR is not validated for use in drug dosing adjustments.Continue to use estimated creatinine clearance per dosing reference text.Please contact the Clinical Pharmacist for questions. eGFR >60 >60 mL/min [facility] Spanish Comment: The eGFR is not validated for use in drug dosing adjustments.Continue to use estimated creatinine clearance per dosing reference text.Please contact the Clinical Pharmacist for questions. Specimen Blood Performing Organization Address City/State/Zipcode Phone Number MAIN LAB [address] [place] [address] * CBC AND DIFF (03/27/2019 3:47 AM CDT) Pathologist [facility] White Blood 6.5 4.5 - 11.0 K/UL [facility] Cells RBC 4.29 (L) 4.4 - 5.5 M/UL [facility] Hemoglobin 12.9 (L) 13.5 - 16.5 GM/DL [facility] Hematocrit 38.2 (L) 40 - 50 % [facility] MCV 89.0 80 - 100 FL [facility] MCH 30.2 26 - 34 PG [facility] MCHC 33.9 32.0 - 36.0 G/DL [facility] RDW 14.4 11 - 15 % [facility] Platelet Count 194 150 - 400 K/UL [facility] MPV 8.3 7 - 11 FL [facility] Neutrophils 61 41 - 77 % [facility] Lymphocytes 28 24 - 44 % [facility] Monocytes 7 4 - 12 % [facility] Eosinophils 4 0 - 5 % [facility] Basophils 0 0 - 2 % [facility] Absolute 3.90 1.8 - 7.0 K/UL [facility] Neutrophil Count Absolute Lymph 1.80 1.0 - 4.8 K/UL [facility] Count Absolute 0.50 0 - 0.80 K/UL [facility] Monocyte Count Absolute 0.30 0 - 0.45 K/UL [facility] Eosinophil Count Absolute 0.00 0 - 0.20 K/UL [facility] Basophil Count Specimen Blood Performing Organization Address City/[facility]/Zipcode Phone Number MAIN LAB [address] [place] [address] * BASIC METABOLIC PANEL (03/26/2019 1:12 PM CDT) Sodium 139 137 - 147 MMOL/L [facility] Potassium 4.4 3.5 - 5.1 MMOL/L [facility] Chloride 105 98 - 110 MMOL/L [facility] CO2 29 21 - 30 MMOL/L [facility] Anion Gap 5 3 - 12 [facility] Glucose 101 (H) 70 - 100 MG/DL [facility] Blood Urea 18 7 - 25 MG/DL [facility] Nitrogen Creatinine 1.24 0.4 - 1.24 MG/DL [facility] Calcium 9.6 8.5 - 10.6 MG/DL [facility] eGFR Non 56 (L) >60 mL/min [facility] Comment: Spanish The eGFR is not validated for use in drug dosing adjustments.Continue to use estimated creatinine clearance per dosing reference text.Please contact the Clinical Pharmacist for questions. eGFR >60 >60 mL/min [facility] Spanish Comment: The eGFR is not validated for use in drug dosing adjustments.Continue to use estimated creatinine clearance per dosing reference text.Please contact the Clinical Pharmacist for questions. Specimen Blood Performing Organization Address City/[facility]/Zipcode Phone Number [facility] [address] [place] [address] * PTT (APTT) (03/26/2019 1:12 PM CDT) APTT 34.3 24.0 - 36.5 SEC MAIN LAB Specimen Blood Performing Organization Address City/[facility]/Zipcode Phone Number [facility] [address] [place] [address] * PROTIME INR (PT) (03/26/2019 1:12 PM CDT) INR 2.3 (H) 0.8 - 1.2 [facility] Specimen Blood Performing Organization Address [facility] Phone Number MA[facility] LAB [address] [place] [phone] * CBC AND DIFF (03/26/2019 1:12 PM CDT) Pathologist [facility] White Blood 5.1 4.5 - 11.0 K/UL [facility] Cells RBC 4.40 4.4 - 5.5 M/UL [facility] Hemoglobin 13.4 (L) 13.5 - 16.5 GM/DL [facility] Hematocrit 39.8 (L) 40 - 50 % [facility] MCV 90.4 80 - 100 FL [facility] MCH 30.4 26 - 34 PG [facility] MCHC 33.7 32.0 - 36.0 G/DL [facility] RDW 14.7 11 - 15 % [facility] Platelet Count 186 150 - 400 K/UL [facility] MPV 8.4 7 - 11 FL [facility] Neutrophils 55 41 - 77 % [facility] Lymphocytes 33 24 - 44 % [facility] Monocytes 9 4 - 12 % [facility] Eosinophils 3 0 - 5 % [facility] Basophils 0 0 - 2 % [facility] Absolute 2.80 1.8 - 7.0 K/UL [facility] Neutrophil Count Absolute Lymph 1.70 1.0 - 4.8 K/UL [facility] Count Absolute 0.50 0 - 0.80 K/UL [facility] Monocyte Count Absolute 0.10 0 - 0.45 K/UL [facility] Eosinophil Count Absolute 0.00 0 - 0.20 K/UL [facility] Basophil Count Specimen Blood Performing Organization Address City/[facility]/Zipcode Phone Number MAIN LAB [address] [place] [phone] * TELEMETRY STRIPS-SCAN (03/26/2019 12:00 AM CDT) Narrative Performed At Ordered by an unspecified provider. * ECG-SCAN (03/26/2019 12:00 AM CDT) Narrative Performed At Ordered by an unspecified provider. documented in this encounter Visit Diagnoses Diagnosis NPH (normal pressure hydrocephalus) - Primary Idiopathic normal pressure hydrocephalus (INPH) Pre-op evaluation Preoperative examination, unspecified Aneurysm (HCC) Aneurysm of unspecified site documented in this encounter Administered Medications Action Date Dose Rate Site Medication Order MAR Action 04/01/2019 9:31 AM CDT 650 mg acetaminophen (TYLENOL) tablet 650 mg Given 650 mg, Oral, EVERY 6 HOURS PRN, Starting Tue03/26/19 at 1205, Until Tue04/04/19 at 1206, Pain non-opioid: may be used alone or in combination with opioid analgesia, TOTAL ACETAMINOPHEN DOSE NOT TO EXCEED 4GM DAILY, 650 mg Given 03/31/2019 4:01 PM CDT 650 mg Given 03/30/2019 1:34 PM CDT 04/04/2019 8:17 AM CDT 100 mg allopurinol (ZYLOPRIM) tablet 100 mg Given 100 mg, Oral, DAILY, First dose on Tue03/26/19 at 1245, Until Discontinued 100 mg Given 04/03/2019 11:11 AM CDT 100 mg Given 04/02/2019 8:26 AM CDT 04/04/2019 8:18 AM CDT 200 mg amiodarone (CORDARONE) tablet 200 mg Given 200 mg, Oral, THREE TIMES DAILY, First dose on Tue03/26/19 at 2100, Until Discontinued 200 mg Given 04/03/2019 9:18 PM CDT 200 mg Given 04/03/2019 2:52 PM CDT 04/04/2019 8:17 AM CDT 325 mg aspirin tablet 325 mg Given 325 mg, Oral, DAILY, First dose on Tue04/03/19 at 0900, Until Discontinued 325 mg Given 04/03/2019 11:11 AM CDT 04/04/2019 8:18 AM CDT 40 mg atorvastatin (LIPITOR) tablet 40 mg Given 40 mg, Oral, DAILY, First dose on Tue03/26/19 at 1245, Until Discontinued 40 mg Given 04/03/2019 11:14 AM CDT 40 mg Given 04/02/2019 8:23 AM CDT 03/30/2019 1:31 PM CDT 2 g ceFAZolin (ANCEF) IVP 2 g Given 2 g, Intravenous, EVERY 8 HOURS, 3 doses, First dose on Tue03/29/19 at 2030, Last dose on Tue03/30/19 at 1230, IV PUSH -- RECONSTITUTE each 1 g vial by adding 10 mL 0.9% NACL, 2 g Given 03/30/2019 5:01 AM CDT 2 g Given 03/29/2019 8:42 PM CDT 04/04/2019 8:18 AM CDT 1,000 Units cholecalciferol (VITAMIN D-3) tablet Given 1,000 Units 1,000 Units, Oral, DAILY, First dose on Tue03/26/19 at 1245, Until Discontinued 1,000 Units Given 04/03/2019 11:13 AM CDT 1,000 Units Given 04/02/2019 8:22 AM CDT 04/04/2019 8:18 AM CDT 40 mg citalopram (CELEXA) tablet 40 mg Given 40 mg, Oral, DAILY, First dose on Tue03/26/19 at 1600, Until Discontinued 40 mg Given 04/03/2019 11:14 AM CDT 40 mg Given 04/02/2019 8:23 AM CDT 04/02/2019 8:23 AM CDT 50 mg diphenhydrAMINE (BENADRYL) capsule 50 mg Given 50 mg, Oral, ONCE, 1 dose, Tue04/02/19 at 0800, 1 hour before contrast media injection, procedure at 0900 04/02, please administer at 0800 tomorrow AM, 03/30/2019 3:07 PM CDT 50 mg diphenhydrAMINE (BENADRYL) injection 50 Given mg 50 mg, Intravenous, ONCE, 1 dose, Tue03/30/19 at 1430, Give prior to IR procedure, Intra-procedure (IR) 04/04/2019 8:18 AM CDT 100 mg docusate (COLACE) capsule 100 mg Given 100 mg, Oral, TWICE DAILY, First dose on Tue03/26/19 at 1300, Until Discontinued, Hold for loose stools., 100 mg Given 04/03/2019 9:19 PM CDT 100 mg Given 04/03/2019 11:10 AM CDT 03/30/2019 3:54 PM CDT 50 mcg fentaNYL citrate PF (SUBLIMAZE) Given injection 25-50 mcg 25-50 mcg, Intravenous, ONCE, 1 dose, Tue03/30/19 at 1430, Intra-procedure (IR) 03/30/2019 5:14 PM CDT 50 mcg fentaNYL citrate PF (SUBLIMAZE) Given injection INTRA-PROCEDURE MED, Starting Tue03/30/19 at 1653, Until Tue03/30/19 at 1714 50 mcg Given 03/30/2019 4:53 PM CDT 04/03/2019 10:10 AM CDT 19 mL gadobenate dimeglumine (MULTIHANCE) Given injection 19 mL 19 mL, Intravenous, ONCE, 1 dose, Tue04/03/19 at 1015, NOTE: This is a HIGH ALERT Medication., 03/28/2019 9:34 PM CDT 5,000 Units Abdomen:RLQ heparin (porcine) PF syringe 5,000 Units Given 5,000 Units, Subcutaneous, EVERY 8 HOURS, 5 doses, First dose on Tue03/27/19 at 1400, Last dose on Tue03/28/19 at 2200, NOTE: This is a HIGH ALERT Medication., 5,000 Units Abdominal Tissue Given 03/28/2019 2:40 PM CDT 5,000 Units Abdominal Tissue Given 03/28/2019 6:48 AM CDT 04/01/2019 9:13 PM CDT 5,000 Units Abdominal Tissue heparin (porcine) PF syringe 5,000 Units Given 5,000 Units, Subcutaneous, EVERY 8 HOURS, 4 doses, First dose on 03/31/19 at 2200, Last dose on Tue04/01/19 at 2200, NOTE: This is a HIGH ALERT Medication., 5,000 Units Abdominal Tissue Given 04/01/2019 2:34 PM CDT 5,000 Units Abdominal Tissue Given 04/01/2019 6:23 AM CDT 04/04/2019 7:18 AM CDT 5,000 Units Abdominal Tissue heparin (porcine) PF syringe 5,000 Units Given 5,000 Units, Subcutaneous, EVERY 8 HOURS, First dose on Tue04/03/19 at 2200, Until Discontinued, NOTE: This is a HIGH ALERT Medication., 5,000 Units Abdominal Tissue Given 04/03/2019 9:20 PM CDT 03/30/2019 3:09 PM CDT 100 mg hydrocortisone PF (SOLU-CORTEF) Given injection 100 mg 100 mg, Intravenous, ONCE, 1 dose, Tue03/30/19 at 1430, Give day of procedure PROTECT FROM LIGHT, Intra-procedure (IR) 03/30/2019 5:19 PM CDT 150 mL iopamidol 300 (ISOVUE-300) injection 150 Given mL 150 mL, Intra-arterial, ONCE, 1 dose, Tue03/30/19 at 1730, NOTE: This is a HIGH ALERT Medication., 04/02/2019 12:10 PM CDT 150 mL iopamidol 300 (ISOVUE-300) injection 150 Given mL 150 mL, Intra-arterial, ONCE, 1 dose, Tue04/02/19 at 1215, NOTE: This is a HIGH ALERT Medication., 04/04/2019 8:18 AM CDT 50 mg losartan (COZAAR) tablet 50 mg Given 50 mg, Oral, DAILY, First dose on Tue03/26/19 at 1245, Until Discontinued 50 mg Given 04/03/2019 11:13 AM CDT 50 mg Given 04/02/2019 8:23 AM CDT 04/03/2019 9:18 PM CDT 5 mg melatonin tablet 5 mg Given 5 mg, Oral, AT BEDTIME DAILY, First dose on Tue03/26/19 at 2230, Until Discontinued 5 mg Given 04/02/2019 8:42 PM CDT 5 mg Given 04/01/2019 9:12 PM CDT 04/01/2019 9:12 PM CDT 32 mg methylprednisolone (MEDROL) tablet 32 mg Given 32 mg, Oral, ONCE, 1 dose, [place] 04/01/19 at 2100, 12 hours prior to contrast administration, procedure at 04/02, please administer at 2100 tonight, 04/02/2019 7:08 AM CDT 32 mg methylprednisolone (MEDROL) tablet 32 mg Given 32 mg, Oral, ONCE, 1 dose, Tue04/02/19 at 0700, 2 hours prior to contrast administration, procedure at 04/02, please administer at 0700 tomorrow AM, 03/30/2019 3:48 PM CDT 1 mg midazolam (VERSED) injection 1 mg Given 1 mg, Intravenous, ONCE, 1 dose, Tue03/30/19 at 1430, Intra-procedure (IR) 03/30/2019 5:03 PM CDT 1 mg midazolam (VERSED) injection Given INTRA-PROCEDURE MED, Starting Tue03/30/19 at 1603, Until Tue03/30/19 at 1703 0.25 mg Given 03/30/2019 4:32 PM CDT 0.5 mg Given 03/30/2019 4:26 PM CDT 04/04/2019 8:18 AM CDT 10 mL milk of magnesia (CONC) oral suspension Given 10 mL 10 mL, Oral, DAILY, First dose on Tue03/26/19 at 1300, Until Discontinued, 10 mL CONC=30 mL MOM, 10 mL Given 04/03/2019 11:14 AM CDT 10 mL Given 04/02/2019 8:23 AM CDT 04/02/2019 11:12 AM CDT 200 mcg nitroglycerin(#) injection Given INTRA-PROCEDURE MED, Starting Tue04/02/19 at 1112, Until Tue04/02/19 at 1112 04/04/2019 8:17 AM CDT [address] (PROTONIX) tablet 40 mg Given 40 mg, Oral, DAILY, First dose on Tue03/26/19 at 1245, Until Discontinued, Do not crush or chew tablet., 40 mg Given 04/03/2019 11:15 AM CDT 40 mg Given 04/02/2019 8:23 AM CDT 03/27/2019 12:15 PM CDT 5 mg Arm, Left phytonadione (VITAMIN K) injection 5 mg Given 5 mg, Subcutaneous, ONCE, 1 dose, Tue03/27/19 at 1100 04/03/2019 9:21 PM CDT 0.25 mg rOPINIRole (REQUIP) tablet 0.25 mg Given 0.25 mg, Oral, AT BEDTIME DAILY, First dose on Tue03/26/19 at 2100, Until Discontinued 0.25 mg Given 04/02/2019 8:42 PM CDT 0.25 mg Given 04/01/2019 9:14 PM CDT 04/04/2019 8:18 AM CDT 1 tablet senna (SENOKOT) tablet 1 tablet Given 1 tablet, Oral, TWICE DAILY, First dose on Tue03/26/19 at 1300, Until Discontinued, Hold for loose stools, 1 tablet Given 04/03/2019 9:18 PM CDT 1 tablet Given 04/03/2019 11:13 AM CDT 03/28/2019 9:07 PM CDT 50 mL/hr sodium chloride 0.9 % infusion Given - New 1,000 mL, Intravenous, at 50 mL/hr, Bag CONTINUOUS, Starting Tue03/28/19 at 2045, Until Tue03/30/19 at 0538 03/29/2019 11:00 AM CDT 20 mL/hr sodium chloride 0.9 % infusion Given - New 1,000 mL, Intravenous, at 20 mL/hr, Bag CONTINUOUS, Starting Meeta 03/29/19 at 1045, Until Tue03/30/19 at 0538 04/04/2019 8:18 AM CDT 25 mg spironolactone (ALDACTONE) tablet 25 mg Given 25 mg, Oral, DAILY, First dose on Tue03/26/19 at 1245, Until Discontinued, NURSING: Please educate patient and document: Avoid using salt substitutes which have a high potassium content (Nu-Salt)., 25 mg Given 04/03/2019 11:11 AM CDT 25 mg Given 04/02/2019 8:23 AM CDT 04/04/2019 8:18 AM CDT 0.4 mg tamsulosin (FLOMAX) capsule 0.4 mg Given 0.4 mg, Oral, DAILY, First dose on 03/26/19 at 1245, Until Discontinued, NURSING: Please educate patient and document: Give 1/2 hour following same meal everyday. Do not crush, chew or open the capsule. , 0.4 mg Given 04/03/2019 11:13 AM CDT 0.4 mg Given 04/02/2019 8:23 AM CDT 04/02/2019 11:12 AM CDT 2.5 mg verapamil (ISOPTIN) injection Given INTRA-PROCEDURE MED, Starting Tue04/02/19 at 1112, Until Tue04/02/19 at 1112 documented in this encounter
--- OUTSIDE RECORDS SUMMARY | 2019-05-25 00:59 | XMS REPORT | Encounter Summary ---
Author Author [facility] Organization [facility] Address Unknown Phone Unavailable Care Team Providers Care Fire Fighter Name Role Phone Michael Velasquez MD Unavailable Lesley Butcher MD PCP Reason for Referral * Radiology Services (Routine) Referred By Contact Referred To Contact Status Reason Specialty Diagnoses / Procedures Ton Weber MD [address] [facility] [address] [place] [address] [place] [address] No Auth Needed Radiology Diagnoses NPH (normal pressure hydrocephalus) S/P ULTIMATE HOOPS SCOREBOARD OPERATOR shunt P rocedures CT HEAD WO CONTRAST Encounter Details Care Team Description Date Type Department Ton Weber MD [address] [facility] [address] [place], [place] [id number] NPH (normal pressure hydrocephalus) (Primary Dx); S/P ULTIMATE HOOPS SCOREBOARD OPERATOR shunt 03/30/[address] [facility] [address] [place] [id number] Social History Date Tobacco Use Types Packs/Day [...] RESULTS History: Normal pressure hydrocephalus. Status post ULTIMATE HOOPS SCOREBOARD OPERATOR shunt placement. Technique: Multiple contiguous axial images [...] head History: Normal pressure hydrocephalus. Status post ULTIMATE HOOPS SCOREBOARD OPERATOR shunt placement. 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
--- OUTSIDE RECORDS SUMMARY | 2019-05-25 00:59 | XMS REPORT | Encounter Summary ---
Author Author [facility] Organization [facility] Address Unknown Phone Unavailable Care Team Providers Care Lamp Decorator Name Role Phone Michael Velasquez MD Unavailable Lesley Butcher MD PCP Reason for Visit * Auth/Cert Referred By Contact Referred To Contact Status Reason Specialty Diagnoses / Procedures Diagnoses Cerebral Aneurysm Encounter Details Care Team Description Date Type Department Michael Vann, [place] [address] [place] [id number] [phone] 04/02/2019 Anesthesia [facility] [address] [address] Anesthesia Record Responsible Anesthesiologist Anesthesia Start Time Anesthesia Stop Time Procedure Name Kavya Cadena MD 04/02/19 1022 04/02/19 1236 IR ARTERIOGRAM NEURO Date Time Event Comment 944 1021 Out of Pre Procedure 1022 Anes Start 1022 AN Equip Check 1022 An Start Data 1023 In Room 1031 An Induction The patient was reevaluated immediately before moderate or deep sedation use and before anesthesia induction. 1038 An Intubation ET placed via DL atraumatic with eyes, lips, teeth, and soft tissue at baseline. 1051 Anesthesia Ready 1109 Proc Start 1112 Quick Note Vasodilator injected 1221 An Extubation Patient breathing spontaneously, regular rate and adequate depth. VSS. Patient extubated with oral airway placed. Airway remains patent. VSS. O2 applied via mask with suctioning on going as needed. Respirations and ventilation remain adequate. 1231 an stop data 1231 Handoff to RN I completed my SBAR handoff to the receiving nurse. 1236 An Stop Meds Name Total fentaNYL PF (SUBLIMAZE) injection 100 mcg lidocaine (2%) 200 mg/10mL Injection 100 mg syringe propofol (DIPRIVAN) 200 mg/ 20 mL 200 mg injection (VIAL) rocuronium (ZEMURON) injection 40 mg ondansetron (ZOFRAN) injection 4 mg dexamethasone (DECADRON) 4 mg/mL 8 mg injection phenylephrine (ANIBAL-SYNEPHRINE) 0.1 mg/mL 100 mcg injection (SYRINGE) sugammadex (BRIDION) 100 mg/mL iv soln 191 mg dextran 70/hypromellose (GENTEAL TEARS; 2 drop BION TEARS) ophthalmic solution dexmedetomidine in 0.9 % NaCl (PRECEDEX) 54.64 mcg infusion propofol (DIPRIVAN) infusion 1,005.42 mg heparin (porcine) 1,000 units/mL 5,000 Units injection dexmedetomidine (PRECEDEX) 20 mcg/5 mL 12 mcg (4 mcg/mL) injection sodium chloride 0.9 % infusion (1000 500 mL mL bag) * Name O2 N2O Inspired Sevoflurane Inspired Sevoflurane * No blood administrations on file. Removal Type Details Placement Wounds 02/24/18; 1502; Ear; Surgical Incision; 02/24/18 1502 by (NOT for Gelfoam, Mupirocen, Sutures, annette Stockberger, Linda, RN Pressure Injuries) Wounds 11/03/18; 1028; Head; Surgical Incision; 11/03/18 1028 by (NOT for sutures, dermabond, annette Boo-Barron, Darby, Pressure RN Injuries) Wounds 03/28/19; 1502; Dorsal; Head; Puncture 03/28/19 1502 by Parker, (NOT for Wound; Puncture wound prior to admission Yi, RN Pressure Injuries) Wounds 03/29/19; 1315; Anterior, Left; Head; 03/29/19 1315 by Marlyn, (NOT for Surgical Incision Maurice, RN Pressure Injuries) Wounds 03/29/19; 1316; Anterior, Left, Upper; 03/29/19 1316 by Marlyn, (NOT for Abdomen; Surgical Incision Maurice, RN Pressure Injuries) Puncture 04/02/19; 1209; Right; Radial 04/02/19 1209 by Wound Marcus Alvarado RN (Sheath) 04/02/19 1053 by Yi Farris RN Peripheral 03/29/19; 1236; Provider; R; Wrist; 18 03/29/19 1236 by IV G; 3; 04/02/19; 1053 Juan J Reilly MD 04/02/19 1311 by Marcus Alvarado RN Puncture 03/30/19; 1740; Right; Femoral; 03/30/19 1740 by Neftali Mccabe 04/02/19; 1311 IKE Hernandes (Sheath) 04/02/19 1223 by Michael Vann CRNA ETT 04/02/19; 1038; Ventilated by mask with 04/02/19 1038 by denise Vann airway (2); Direct laryngoscopy; Michael Pollock CRNA Single-Lumen, Cuffed; 7.5mm; Mac; 3; Oral; 1-Full view of the glottis; 1 insertion attempt; Auscultation, ETCO2 Detector; 22 centimeters; 04/02/19; 1223 04/03/19 1724 by Edith Cleary RN Peripheral 04/02/19; 1039; Provider; L; 04/02/19 1039 by NATE Vann Antecubital; 20 G; 1; 04/03/19; 1724 Michael Pollock CRNA 04/03/19 1140 by Edith Cleary RN Peripheral 04/02/19; 1055; Provider; L; Mid; Other 04/02/19 1055 by NATE Vann (Comment) (Ankle ); 18 G; 1; 04/03/19; Michael Pollock CRNA 1140 04/02/19 1208 by Marcus Alvarado RN Arterial 04/02/19; 1110; Radial, Right; 5 FR; 04/02/19 1110 by Katja Farrsi Other (Comment) (intra-procedure temp Yi Pollock RN sheath placement); Correct Patient, Correct Patient Position, Marking Waived, Not Side Specific, Correct Equipment / Implants Available, Correct Procedure; 04/02/19; 1208 documented in this encounter Social History Date Tobacco [...] impairment: Yes documented as of this encounter OR Notes * Anesthesia Postprocedure Evaluation - Kavya Cadena MD - 04/02/2019 2:50 PM CDT Post-Anesthesia Evaluation Name: Estrada Godoy : 1935 Age: 84 y.o. Sex: male Procedure Date: 04/02/2019 Procedure: Cerebral arteriogram Surgeon: Dr. Weber Post-Anesthesia Vitals BP: 119/72 (04/02 1415) Pulse: 44 (04/02 1415) SpO2: 94 % (04/02 1415) O2 Delivery: Nasal Cannula (04/02 141) SpO2 Pulse: 44 (04/02 1415) Temp: 97.9 Post Anesthesia Evaluation Note Evaluation location: Pre/Post Patient participation: recovered; patient participated in evaluation Level of consciousness: alert Pain score: 0 Pain management: adequate Hydration: normovolemia Temperature: 36.0C - 38.4C Airway patency: adequate Perioperative Events Post-op nausea and vomiting: no PONV Postoperative Status Cardiovascular status: hemodynamically stable Respiratory status: spontaneous ventilation Follow-up needed: none Perioperative Events Perioperative Event: No Emergency Case Activation: No * Anesthesia Preprocedure Evaluation - Michael Vann CRNA - 04/02/2019 9:31 AM CDT Anesthesia Pre-Procedure Evaluation Name: Estrada Godoy : 1935 Age: 84 y.o. Sex: male Procedure Date: 04/02/2019 Procedure: * No procedures listed * Physical Assessment Vital Signs (last filed in past 24 hours): BP: 129/76 (04/02 815) Temp: 36.3 C (97.3 F) (04/02 815) Pulse: 60 (04/02 815) Respirations: 16 PER MINUTE (04/02 815) SpO2: 97 % (04/02 815) O2 Delivery: None (Room Air) (04/02 815) Patient History Allergies Allergen Reactions Contrast Dye Iv, Iodine Containing [Iodinated Contrast- Oral And Iv Dye] ITC JACKSON Current Medications Medication Directions allopurinol (ZYLOPRIM) 100 mg tablet Take 100 mg by mouth daily. Take with food. amiodarone (CORDARONE) 200 mg tablet Take 200 mg by mouth three times daily. Jase e with food. aspirin EC 81 mg tablet Take 81 mg by mouth daily. Take with food. atorvastatin (LIPITOR) 80 mg tablet Take 80 mg by mouth at bedtime daily. cholecalciferol(+) (VITAMIN D-3) 5,000 unit tablet Take 5,000 Units by mouth twi ce daily. citalopram (CELEXA) 40 mg tablet Take 40 mg by mouth daily. fexofenadine(+) (RACHEL) 180 mg tablet Take 180 mg by mouth daily. fluticasone propionate (FLONASE) 50 mcg/actuation nasal spray Apply 1 spray to e ach nostril as directed daily. Shake bottle gently before using. lactobacillus rhamnosus (GG) (CULTURELLE) 10 billion cell cap Take 1 capsule by mouth daily with breakfast. losartan (COZAAR) 50 mg tablet Take 50 mg by mouth daily. pantoprazole DR (PROTONIX) 40 mg tablet Take 40 mg by mouth daily. polyvinyl alcohol/povidone(+) (REFRESH) 1.4/0.6 % ophthalmic solution Apply 1 dr op to both eyes daily as needed. rOPINIRole (REQUIP) 0.25 mg tablet Take 0.25 mg by mouth at bedtime daily. spironolactone (ALDACTONE) 25 mg tablet Take 25 mg by mouth Daily. tamsulosin (FLOMAX) 0.4 mg capsule Take 0.4 mg by mouth daily. Do not crush, elke w or open capsules. Take 30 minutes following the same meal each day. vitamins, multi w/minerals 9 mg iron-400 mcg tab Take 1 tablet by mouth daily. warfarin (COUMADIN) 3 mg tablet Take 9 mg by mouth daily. Review of Systems/Medical History Patient summary reviewed Nursing notes reviewed Pertinent labs reviewed PONV Screening: Non-smoker No history of anesthetic complications No family history of anesthetic complications Airway - negative 02/24/18; Ventilated by mask (1); Direct laryngoscopy, Stylet; Single-Lumen, Cuffed; 7.5mm; Mac; 4; Oral; 2b-Arytenoids or posterior part of the vocal cords only just visible; 1 insertion attempt; 23 cm Pulmonary Not a current smoker No indications/hx of asthma no COPD Not on home oxygen Sleep apnea Interventions: CPAP; compliant Cardiovascular Recent diagnostic studies: echocardiogram 03/27/19 Normal LV size with concentric remodeling and mildly reduced systolic function, EF ~ 45% Regional wall motion abnormalities as diagrammed below Grade I (mild) left ventricle diastolic dysfunction. Normal RV size with mildly reduced systolic function Normal size atria bilaterally Aortic sclerosis without stenosis. Mild to moderate regurgitation (likely secon lambert to below) Moderate enlargement of the aortic root, ascending aorta, and aortic arch Estimated peak systolic PA pressure=21 mmHg No pericardial effusion Exercise tolerance: >4 METS Beta Blas therapy: Yes Beta blockers within 24 hours: No Hypertension, well controlled Coronary artery disease PTCA (stents x9; last stent 2013) Dysrhythmias; atrial fibrillation PVD (AAA repair 2015) Hyperlipidemia No syncope (Pre-syncoal episodes with Meniere dz) Heart cath on 02-03-18: LVEF 46%, stents patent; mid to distal septal and inferior hypokinesis of very m ild degrees, likely representing post event residual from remote infarctions in these areas. Full report in chart Holter monitor 02/2017 PAC's, Short atrial tachycardia bursts, rare PVC Stress test 02/2017: Normal -AAA repair in 2015, family states he still has AAA, doctors "keeping an eye on it" Plavix stopped in February, last dose of Warfarin Tuesday03/24/19 GI/Hepatic/Renal GERD, well controlled No hx of liver disease No renal disease Neuro/Psych No seizures No hx TIA No CVA Sensory deficit (Meniere's disease, bilateral hearing loss) Musculoskeletal - negative Endocrine/Other Obesity Constitution - negative Physical Exam Airway Findings Mallampati: II TM distance: >3 FB Neck ROM: full Mouth opening: good Airway patency: adequate Dental Findings: Negative Cardiovascular Findings: Rhythm: regular Rate: normal Pulmonary Findings: Breath sounds clear to auscultation. Abdominal Findings: Obese Abdomen soft Bowel sounds normal. Neurological Findings: Normal mental status No motor deficit Comments: Fall 1 week ago, Hard of hearing Constitutional findings: Negative Diagnostic Tests Hematology: Lab Results Component Value Date HGB 11.9 04/01/2019 HCT 34.8 04/01/2019 PLTCT 178 04/01/2019 WBC 6.8 04/01/2019 NEUT 61 04/01/2019 ANC 4.10 04/01/2019 ALC 2.00 04/01/2019 KAT 6 04/01/2019 AMC 0.40 04/01/2019 EOSA 3 04/01/2019 ABC 0.00 04/01/2019 MCV 90.1 04/01/2019 MCH 30.7 04/01/2019 MCHC 34.1 04/01/2019 MPV 7.9 04/01/2019 RDW 14.8 04/01/2019 General Chemistry: Lab Results Component Value Date NA 139 04/01/2019 K 3.9 04/01/2019 CL 106 04/01/2019 CO2 28 04/01/2019 GAP 5 04/01/2019 BUN 18 04/01/2019 CR 1.19 04/01/2019 GLU 92 04/01/2019 CA 9.3 04/01/2019 Coagulation: Lab Results Component Value Date PTT 34.3 03/26/2019 INR 1.1 03/29/2019 Anesthesia Plan ASA score: 3 Plan: general Induction method: intravenous NPO status: acceptable Informed Consent Anesthetic plan and risks discussed with patient. Use of blood products discussed with patient Blood Consent: consented Plan discussed with: anesthesiologist and SUPER[employer]OR [employer]. documented in this encounter Plan of Treatment Not on filedocumented as of this encounter Visit Diagnoses Not on filedocumented in this encounter Administered Medications Action Date Dose Rate Site Medication Order MAR Action 04/02/2019 11:09 AM CDT 8 mg dexamethasone (DECADRON) injection Given Intravenous, INTRA-PROCEDURE MED, Starting Tue04/02/19 at 1109, Until Tue04/02/19 at 1236, Anesthesia Intra-op 04/02/2019 10:21 AM CDT 8 mcg dexmedetomidine (PRECEDEX) injection Given INTRA-PROCEDURE MED, Starting Tue04/02/19 at 1021, Until Tue04/02/19 at 1236, Anesthesia Intra-op 4 mcg Given 04/02/2019 10:19 AM CDT 04/02/2019 10:40 AM CDT 0.4 mcg/kg/hr 9.5 mL/hr dexmedetomidine in 0.9 % NaCl (PRECEDEX) Given - New infusion Bag 50 mL, INTRA-PROCEDURE MED(CONT), Starting Tue04/02/19 at 1040, Until Tue04/02/19 at 1236, Anesthesia Intra-op 04/02/2019 10:41 AM CDT 2 drops dextran 70/hypromellose (GENTEAL TEARS; Given BION TEARS) ophthalmic solution INTRA-PROCEDURE MED, Starting Tue04/02/19 at 1041, Until Tue04/02/19 at 1236, Anesthesia Intra-op 04/02/2019 10:31 AM CDT 100 mcg fentaNYL citrate PF (SUBLIMAZE) Given injection INTRA-PROCEDURE MED, Starting Tue04/02/19 at 1031, Until Tue04/02/19 at 1236, Anesthesia Intra-op 04/02/2019 11:09 AM CDT 5,000 Units heparin (porcine) injection Given INTRA-PROCEDURE MED, Starting Tue04/02/19 at 1109, Until Tue04/02/19 at 1236, Anesthesia Intra-op 04/02/2019 10:31 AM CDT 100 mg lidocaine (PF) injection Given INTRA-PROCEDURE MED, Starting Tue04/02/19 at 1031, Until Tue04/02/19 at 1236, Anesthesia Intra-op 04/02/2019 11:09 AM CDT 4 mg ondansetron (ZOFRAN) injection Given Intravenous, INTRA-PROCEDURE MED, Starting Tue04/02/19 at 1109, Until Tue04/02/19 at 1236, Anesthesia Intra-op 04/02/2019 11:20 AM CDT 50 mcg phenylephrine in NS injection syringe Given Intravenous, INTRA-PROCEDURE MED, Starting Tue04/02/19 at 1116, Until Tue04/02/19 at 1236, Anesthesia Intra-op 50 mcg Given 04/02/2019 11:16 AM CDT 04/02/2019 11:50 AM CDT 100 mcg/kg/min 57.2 mL/hr propofol (DIPRIVAN) infusion Dose/Rate 100 mL, INTRA-PROCEDURE MED(CONT), Change Starting Tue04/02/19 at 1040, Until Tue04/02/19 at 1236, Anesthesia Intra-op 125 mcg/kg/min 71.5 mL/hr Given - New Bag 04/02/2019 10:40 AM CDT 04/02/2019 10:38 AM CDT 20 mg propofol (DIPRIVAN) injection Given INTRA-PROCEDURE MED, Starting Tue04/02/19 at 1031, Until Tue04/02/19 at 1236, Anesthesia Intra-op 30 mg Given 04/02/2019 10:36 AM CDT 50 mg Given 04/02/2019 10:33 AM CDT 04/02/2019 10:35 AM CDT 40 mg rocuronium (ZEMURON) injection Given Intravenous, INTRA-PROCEDURE MED, Starting Tue04/02/19 at 1035, Until Tue04/02/19 at 1236, Anesthesia Intra-op 04/02/2019 10:22 AM CDT sodium chloride 0.9 % infusion Given - New INTRA-PROCEDURE MED(CONT), Starting Mon Bag 04/02/19 at 1022, Until Tue04/02/19 at 1236, Anesthesia Intra-op 04/02/2019 12:15 PM CDT 191 mg sugammadex (BRIDION) injection Given Intravenous, INTRA-PROCEDURE MED, Starting Tue04/02/19 at 1215, Until Tue04/02/19 at 1236, Anesthesia Intra-op documented in this encounter
--- OUTSIDE RECORDS SUMMARY | 2019-05-25 01:00 | XMS REPORT | Encounter Summary ---
Author [facility] Address Unknown Phone Unavailable Care Team Providers Care Radial Router Operator Name Role Phone Michael Velasquez MD Unavailable Lesley Butcher MD PCP Reason for Visit * Auth/Cert Referred By Contact Referred To Contact Status Reason Specialty Diagnoses / Procedures Diagnoses Cerebral Aneurysm Encounter Details Care Team Description Date Type Department Ton Weber MD [address] Ortho[facility] Lvl [address] [place] [id number] [phone] CREATION SHUNT - VENTRICULO-PERITONEAL 03/29/2019 Surgery [facility] [place] [facility] [place] [address] Social History Date Tobacco Use Types Packs/Day [...] coronary stents, AAA w ho presents to [facility] with complaints of roughly a year worth [...] Reb Medicine consulted. 03/29: to OR for BUNDLE SORTER shunt placement. 03/30: Doing well post operatively. [...] or concerns regarding your hospital stay, call [phone] Discharging attending physician: TON WEBER [[id number]] Regular Diet You have no dietary restriction. [...] CT HEAD W/O CONTRAST with CT - [facility] (JUNIOR [place]) [address] [facility] [address] Apr 12, 2019 1:30 PM CDT Post - Op with NEUROSURGERY PHARMACIST APPRENTICE CLINIC [facility] (NeuroSurgery) [address] Level 2 Pod B [facility] [address] Jul 19, 2019 1:00 PM CDT COCHLEAR INTERP with NELL Joseph [facility] (ENT) [address] Level 3 [address] [facility] [id number] Pending items needing follow up: None [...] or concerns related to the procedu re,call [phone] for Tuesday-Tuesday 7-5. 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 Weber Neurosurgery Discharge Instructions Contact information: ? Please feel free to call Neurosurgery at any time if you have questions or are experiencing problems at discharge [phone]. Post-operative wound care: ? Your head incision [...] @ 11:15, CT head w/o contrast @ [facility], prior to appointment. ? 04/12/19 @ 1:45 [...] CDT Reason for Visit: Follow up visit, Mindy/Worship: Druze catholci Source of Purpose/Meaning: making good progress, talking about moving to the nex t stage of care and planing to move to rehab facility in [facility] , his and katiuska griggs who support [...] NPH (normal pressure hydrocephalus) OR 03/29/19 Left BUNDLE SORTER shunt system placement Continue current care PT/OT Pain control Discharge planning -- CM/SW invovlved;- IPR planned at [facility] for this AM Prophylaxis: B) Lines: No C) Urinary Catheter: No D) Antibiotic Usage: No E) VTE: Pharmacological prophylaxis; SQ Heparin and Mechanical prophylaxis; Seq uential compression device F) Restraints: Patient assessed for need for restraints. Please call [phone] with any questions. Valery Mccall APRN [phone] or Demetria hope * Valery Mccall APRN [...] NPH (normal pressure hydrocephalus) OR 03/29/19 Left BUNDLE SORTER shunt system placement Continue current care Plan [...] assessed for need for restraints. Please call [phone] with any questions. Valery Mccall APRN [id number] or Demetria me * Lorna Liz - 04/03/2019 9:15 AM CDT OCCUPATIONAL THERAPY PROGRESS NOTE Patient Name: Estrada Godoy Room/Bed: [place] [address] Admitting Diagnosis: Cerebral Aneurysm Mobility Progressive Mobility Level: Walk in hallway Distance Walked (feet): 380 ft Level of Assistance: Assist X1 Assistive Device: Hand Held Time Tolerated: 11-30 minutes Activity Limited By: Weakness Subjective Pertinent Dx per Physician: 84 y.o. male with PMHx significant for A.Fib on warf erin, CAD s/p CABG and multiple coronary stents, AAA who presents to [facility] with C C of roughly a year [...] Home Equipment: Walker;Cane Prior Function Level Of Kendall: Needed assistance with functional transfers Lives With: [...] Stairs, Transfers, Toileting Therapist: Lorna Liz OTR/Angely [id number] Date: 04/03/2019 * Bryce Boyer, PT - [...] multiple coronary stents, AAA who presents to [facility] with CC of roughly a year worth of gait instability, urinary incontinence, and cognit hayden decline suggestive of normal pressure hydrocephalus. 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 OR 03/29/19 Left BUNDLE SORTER shunt system placeme nt Mental / Cognitive [...] CDT Reason for Visit: Follow up visit, Mindy/Worship: Druze, Source of Purpose/Meaning: Patient is not told [...] to primary RN. Patient transported back to [facility]. Primary nurse un available. Nursing staff notified [...] is obtained and notify procedural physician and/[facility]. 4. Elevate arm on [...] NPH (normal pressure hydrocephalus) OR 03/29/19 Left BUNDLE SORTER shunt system placement Continue current care Plan [...] ASA 325 tomorrow. PT/OT-rehab planned at [facility] Pain control Prophylaxis: B) Lines: No C) Urinary Catheter: No D) Antibiotic Usage: No E) VTE: Mechanical prophylaxis; Sequential compression device SQ heparin F) Restraints: Patient assessed for need for restraints. Please call [phone] with any questions. Lora Castro APRN [id number] or Demetria ks * Yi Farris RN - 04/02/2019 10:23 [...] as able and indicated. Therapist: SAMMY Cole/Angely [id number] Date: 04/02/2019 * Lorna Liz - 04/01/2019 12:19 PM CDT OCCUPATIONAL THERAPY PROGRESS NOTE Patient Name: Estrada Godyo Room/Bed: LF1269/01 Admitting Diagnosis: Cerebral Aneurysm Mobility Progressive Mobility Level: Walk in hallway Distance Walked (feet): 350 ft Level of Assistance: Assist X1 Assistive Device: Walker Time Tolerated: 0-10 minutes Activity Limited By: Weakness Subjective Pertinent Dx per Physician: 84 y.o. male with PMHx significant for A.Fib on warf erin, CAD s/p CABG and multiple coronary stents, AAA who presents to [facility] with C C of roughly a year [...] Home Equipment: Walker;Cane Prior Function Level Of Kendall: Needed assistance with functional transfers Lives With: [...] Solving: Decreased Judgment/Safety Attention: Awake/Alert Cognition Comment: KALISPEL. Pt primarily reads lips to comprehend instruction. [...] All home functioning ADLs Therapist: SAMMY Cole/Angely [id number] Date: 04/01/2019 * Mara Murillo MD - [...] NPH (normal pressure hydrocephalus) OR 03/29/19 Left BUNDLE SORTER shunt system placement Continue current care Plan [...] assessed for need for restraints. Please call [phone] with any questions. Mara Murillo MD * [...] multiple coronary stents, AAA who presents to [facility] with CC of roughly a year worth of gait instability, urinary incontinence, and cognit hayden decline suggestive of normal pressure hydrocephalus. 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 OR 03/29/19 Left BUNDLE SORTER shunt system placeme nt Mental / Cognitive [...] NPH (normal pressure hydrocephalus) OR 03/29/19 Left BUNDLE SORTER shunt system placement Continue current care Dressing removed today, incision c/d/i Plan for repeat angio Tuesday, MRI tuesday Cardiology consutled - no need to bridge his anticoagulation post operatively; sage benjamin restart Warfarin 3 weeks post op PT/OT-rehab planned at [facility] Pain control Prophylaxis: A) GI: PPI B) Lines: No C) Urinary Catheter: No D) Antibiotic Usage: No E) VTE: Mechanical prophylaxis; Sequential compression device SQ tonight F) Restraints: Patient assessed for need for restraints. Please call [phone] with any questions. Mario Pereyra MD * Angelia Pitt RN - 03/31/2019 2:38 AM CDT Pt has been bradycardic into low 40s last two nights, has dropped to 39 bpm for 2-3 second intervals intermittently over the last half hour. Other VSS, asymptom atic, neurologically intact. On-call provider notified via Voalte. [facility]. 0254 On-call provider notified of above. No new orders at this time, per Dr. Gary avalos. [facility]. * Crystal Coombs RN - 03/30/2019 6:32 [...] ASSESSMENT NOTE Patient Name: Estrada Godoy Room/Bed: [place] [address] Admitting Diagnosis: Cerebral Aneurysm Mobility Progressive Mobility Level: Walk in hallway Distance Walked (feet): 200 ft Level of Assistance: Assist X1 Assistive Device: None Time Tolerated: 11-30 minutes Activity Limited By: Weakness Subjective Pertinent Dx per Physician: 84 y.o. male with PMHx significant for A.Fib on warf erin, CAD s/p CABG and multiple coronary stents, AAA who presents to [facility] with C C of roughly a year [...] Home Equipment: Walker;Cane Prior Function Level Of Kendall: Needed assistance with functional transfers Lives With: [...] All home functioning ADLs Therapist: SAMMY Cole/Angely [id number] Date: 03/30/2019 * Lora Castro APRN - [...] NPH (normal pressure hydrocephalus) OR 03/29/19 Left BUNDLE SORTER shunt system placement Continue current care NPO for IR diagnostic angio-follow up to giant basilar aneurysm, IR team working on timing of pre-medication for contrast allergy. Anticipate angio later today. Cardiology consutled - no need to bridge his anticoagulation post operatively; sage benjamin restart Warfarin 3 weeks post op PT/OT-rehab planned at [facility]-will accept on Tuesday if medially ready Pain control Prophylaxis: A) GI: PPI B) Lines: No C) Urinary Catheter: No D) Antibiotic Usage: No E) VTE: Mechanical prophylaxis; Sequential compression device No anticoagulatio n until 48 hours post operative; contraindication due to bleeding risk F) Restraints: Patient assessed for need for restraints. Please call [phone] with any questions. Lora Castro APRN Pager [phone] or Voalte * Meghana Buckner, PT - 03/30/2019 10:09 AM CDT PHYSICAL THERAPY RE-EVALUATION / PROGRESS NOTE MOBILITY: Progressive Mobility Level: Walk in hallway Distance Walked (feet): 200 ft Level of Assistance: Assist X1 Assistive Device: None Time Tolerated: 11-30 minutes Activity Limited By: Weakness SUBJECTIVE: Significant hospital events: 84 y.o. male with PMHx significant for A.Fib on [facility], CAD s/p CABG and multiple coronary stents, AAA who presents to [facility] with CC of roughly a year worth of gait instability, urinary incontinence, and cognit hayden decline suggestive of normal pressure hydrocephalus. 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 OR 03/29/19 Left BUNDLE SORTER shunt system placeme nt. Mental / Cognitive [...] a 84 y.o. male admitted to [facility] on 03/26/2019 with the following issues: Normal [...] disciplines and medical complexity to warrant acute inar tient rehabilitation admission candidacy. Goals & Barriers [...] day: Aniyah De La Rosa DO Pager [phone] Subjective 84 y.o.malewith PMHx significant for A.Fib on warfarin, CAD s/p CABG and mul tiple coronary stents, AAA who presents to [facility] with CC of roughly a year worth of gait instability, urinary incontinence, and cognitive decline suggestive of n ormal pressure hydrocephalus. Of note patient has recently discovered large basi lar aneurysm. 03/29 BUNDLE SORTER shunt placed by Gus. Post-operative RR called [...] Labs Reviewed. Darwin De La Rosa, Pager [phone] Associated attestation - Jesus Howell MD - [...] asymptomatic. Pt easily rouses, neurologicall y intact. PHARMACIST APPRENTICE Lora Castro notified of above. No new [...] RN called and rapid response. Refer to EXTENSION EDGER not e for further details. * Merline Meneses RN - 03/29/2019 3:02 PM CDT Pt transported back to inpatient room via bed on field sales representative by RN and HCT . * Lora [...] PT/OT Pain control Rehab consulted Plan for BUNDLE SORTER shunt placement today, needs this placed prior [...] assessed for need for restraints. Please call [phone] with any questions. Lora Castro APRN Pager [phone] or Voalte * Rachelle Aly RN - 03/29/2019 11:56 AM CDT CPAP in locker 49. #[phone] * Cristofer Greenfield - 03/29/2019 9:53 AM CDT Reason for Visit: Follow up visit, Mindy/Worship: Druze, Source of Purpose/Meaning: Patient is getting ready [...] 03/28 evening New Events or Follow-up: Pt BUNDLE SORTER shunt placement today. Type and cross completed. [...] Reason for Visit: Request from his daughter, Mindy/Worship: Druze, Source of Purpose/Meaning: Patient is well supported [...] multiple coronary stents, AAA who presents to [facility] with CC of roughly a year worth [...] PROGRESS NOTE Patient Name: Estrada Godoy Room/Bed: RN0250/01 Admitting Diagnosis: Cerebral Aneurysm Mobility Progressive Mobility Level: Walk laps Distance Walked (feet): 620 ft Level of Assistance: Assist X1 Assistive Device: Walker Time Tolerated: 11-30 minutes Activity Limited By: Weakness Subjective Pertinent Dx per Physician: 84 y.o. male with PMHx significant for A.Fib on warf erin, CAD s/p CABG and multiple coronary stents, AAA who presents to [facility] with C C of roughly a year [...] Home Equipment: Walker;Cane Prior Function Level Of Kendall: Needed assistance with functional transfers Lives With: [...] Solving: Decreased Judgment/Safety Attention: Awake/Alert Cognition Comment: KALISPEL. Poor insight into deficits. Assessment Assessment: Decreased [...] mobility with outpatient therapy. Therapist: YOLANDA Goins/Angely [id number] Date: 03/28/2019 * Valery Mccall APRN - [...] PT/OT Pain control Rehab consulted Plan for BUNDLE SORTER shunt placement on tomorrow Prophylaxis: A) GI: PPI B) Lines: No C) Urinary Catheter: No D) Antibiotic Usage: No E) VTE: Mechanical prophylaxis; Sequential compression device F) Restraints: Patient assessed for need for restraints. Please call [phone] with any questions. Valery Mccall APRN Pager [phone] or Voalte * Arsh Alvarez MD - [...] PT/OT Pain control Rehab consulted Plan for BUNDLE SORTER shunt placement on March 29. Prophylaxis: A) GI: PPI B) Lines: No C) Urinary Catheter: No D) Antibiotic Usage: No E) VTE: Mechanical prophylaxis; Sequential compression device F) Restraints: Patient assessed for need for restraints. Please call [phone] with any questions. Valery Mccall APRN Pager [phone] or Voalte * Meghana Clarke - 03/27/2019 [...] multiple coronary stents, AAA who presents to [facility] with CC of roughly a year worth [...] ischemic complications for surgery. Low risk for NE 4. Normal pressure hydrocephalus/ Basal aneurism. -Anticipated BUNDLE SORTER shunt soon -Followed by treatment of aneurysm [...] regarding different doctors (provided by patient's ). Baker Helper 1997 - 2018 Dr. Christian Campa : [phone] DEANN Goff : [phone] (May contact to receive information regarding Dr. Campa, or to help get ahold of him.) PCP Dr. Lesley Butcher : [phone] Dr. Chase Kaur : [phone] (Facilitated last heart catheretization in Jan.) [facility] - Dr. Bhavin Delcid : Phone/ . (Hear t monitor for afib.) [facility] Cardiology Dr. Bonds : [phone] : [address] [place], [place] (chemical Stress Test, Echo.) RN filled out Obtain Information forms for Natasha Linn, Romina Bonds to obtain the specified records. Will fax records request tomorrow when their offices are open. * Jacob Cruzne, OT - 03/26/2019 3:14 PM CDT OCCUPATIONAL THERAPY ASSESSMENT NOTE Patient Name: Estrada Godoy Room[facility]Bed: [id number] Admitting Diagnosis: Cerebral Aneurysm Mobility Progressive Mobility Level: Walk in hallway Distance Walked (feet): 200 ft Level of Assistance: Assist X1 Assistive Device: Walker Time Tolerated: 11-30 minutes Activity Limited By: Weakness;Fatigue Subjective Pertinent Dx per Physician: 84 y.o. male with PMHx significant for A.Fib on warf erin, CAD s/p CABG and multiple coronary stents, AAA who presents to [facility] with C C of roughly a year [...] Home Equipment: Walker;Cane Prior Function Level Of Kendall: Needed assistance with functional transfers Lives With: [...] in Multiple Plane s Cognition Cognition Comment: KALISPEL. Poor insight into deficits. UE AROM Overall [...] home functioning ADLs Therapist: Mira Cruz OTR/Angely [id number] Date: 03/26/2019 * Paris Elizondo, PT - [...] multiple coronary stents, AAA who presents to [facility] with CC of roughly a year worth [...] medicine consult Therapist: Paris Elizondo PT, DPT, [facility] Date: 03/27/2019 * Kelin Mills RN - 03/26/2019 12:46 PM CDT Pt's says that he takes 40mg Celexa daily. Only 10 mg is currently ordered. MD notified. * Kelin Mills RN - 03/26/2019 11:51 AM CDT Pt admitted onto unit accompanied by transport at 1150. [facility] with minimal assistance. Pt tolerated without any [...] this encounter H&P Notes * Lorna Salter, MSN,CAREER GUIDANCE COUNSELOR - 04/02/2019 10:14 AM CDT Pre Procedure [...] Patient pre-medicated for contrast allergy. Lorna Salter, MSN,CAREER GUIDANCE COUNSELOR Pager [phone] * Ton Weber MD - 03/26/2019 12:54 [...] multiple coronary stents, AAA who presents to [facility] with CC of roughly a year worth [...] as well as AC plan -Plan for BUNDLE SORTER shunt once medically optimized -Consideration for treatment [...] coronary stents, AAA who present s to [facility] with complaints of roughly one years worth [...] part of a recommendation by ashley pierce rubber down which brought to attention the giant basilar [...] L8614) performed by Yung Moreno MD at [facility] OR/Per iop TISSUE TRANSFER Right 11/03/2018 ADJACENT TISSUE TRANSFER PEDICLE FLAP (THINNING OF SCALP ABOVE MAGNET) performe d by Yung Moreno MD at [facility] OR/Periop CORONARY ANGIOPLASTY x5 HX HEART [...] has been reviewed and added onto the [place] IR schedule for today. - For sedation purposes, please keep NPO prior to procedure. We appreciate being able to participate in this patient's care. Please page with any questions or concerns. Elli Hyde APRN Pgr [phone] IR Team Pager [phone] (After-hours and Weekends) Procedure Date: 03/30/2019 Procedure: cerebral/carotid arteriogram IR Pre Procedure Notes: Will pre-med with IV benadryl and IV hydrocortisone. me thompson signed and held, consent at desk Chief Complaint: Basilar aneurysm Previous Anesthetic/Sedation History: Reviewed. History of present illness: Estrada Godoy is a 84 y.o. male patient with left BUNDLE SORTER shunt in placed [facility] (03/29). Pt states he is doing well [...] : 1935 Primary Insurance: MEDICARE Secondary Insurance: [facility] Financial Class: Medicare Date of Admission: 03/26/2019 Referring Physician: Ton Weber MD Reason for Consult: evaluate for Post-Acute Rehab/Placement Precautions: Fall Weight bearing Precautions: WBAT Active Problems NPH Impaired mobility and adl Gait ataxia Urinary incontinence Cognitive impairment Assessment & Plan Estrada Godoy is a 84 y.o. male admitted to [facility] on 03/26/2019 with the following issues: Normal [...] disciplines and medical [facility]. However, patient remains with [...] has worked with PT and OT after BUNDLE SORTER plac ement on March 29 Darwin De La Rosa DO Rehab Consult Pager: [phone] History of Present Illness 84 y.o. male with PMHx significant for A.Fib on warfarin, CAD s/p CABG and mult iple coronary stents, AAA who presents to [facility] with CC of roughly a year worth [...] L8614) performed by Yung Moreno MD at [facility] OR/Per iop TISSUE TRANSFER Right 11/03/2018 ADJACENT TISSUE TRANSFER PEDICLE FLAP (THINNING OF SCALP ABOVE MAGNET) performe d by Yung Moreno MD at [facility] OR/Periop CORONARY ANGIOPLASTY x5 HX HEART [...] (03/26/2019 4:00 PM) Support System: Lives in [place], [place] in home with 3 steps. Will have 24 hour support at [facility]. Current Level of Function Physical Therapy: 03/26 [...] in Multiple Plane s Cognition Cognition Comment: KALISPEL. Poor insight into deficits. Review of Systems [...] symptoms suggesting or a h/o recen t NE or symptoms of angina, new or worsening [...] was consulted for recomme ndations. --EKG showed GA prolongation of 230, prolonged QT at 520, [...] --cardiology following with primary team --plan for BUNDLE SORTER shunt on March 29. Thank you for the consult. Will sign off at this time. If the primary service needs further assistance, the service should page [phone] (24 hours a day/7 days a week) to discuss the case. Nguyen Hayes MD Consult pager [phone] Subjective: Estrada Godoy is a 84 y.o. [...] 3. Normal pressure hydrocephalus/ Basal aneurism. 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 Patient has had progressive dementia and gait disturbance and urinary incontinen ce. He was diagnosed with normal pressure hydrocephalus and transferred to [facility] f or evaluation. 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 He was tra nsferred to for insertion of BUNDLE SORTER shunt and then ultimately treatment of his an eurysm on this will need to be delayed until he has recovered from his BUNDLE SORTER shunt He has a long history of coronary disease. He initially presented with fatigue sleepiness and lack of energy. Ultimately a ad operations intern in [place] performed a n angiogram and placed a [...] progressive weakness that he met that heralded [facility] need for another stent. His last angiogram [...] symptoms suggesting or a h/o recen t NE or symptoms of angina, new or worsening or decompensated CHF, significant a rrythmias, h/o aortic stenosis or mitral stenosis or other severe valvular dx. H e denies clinical predictors including h/o CVA, CHF, DM, or renal failure. He d oes have a significant hx severe CAD and poor functional status at this time. Plan: --EKG shows GA prolongation of 230, prolonged QT at 520, no ST/TW changes to sug gest ischemia, rate 55 --will attempt to obtain records of last LHC, stress, ECHO, prior imaging of ane ursyms and last progress note from the pt's ad operations intern Dr Vanegas (phone [phone]) --keep on tele --hold warfarin --start heparin drip for AC pre-operatively --recommend consulting our cardiology team given the multiple cardiac issues the pt has, his EKG abnormalities and the high-risk surgery pt is about to undergo Thank you for the consult. . Note: All patient care calls should be directed fi rst to the primary service. If the primary service needs further assistance, [facility] service should page [phone] (24 hours a day/7 days a week) to discuss the case. 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 Mr. Godoy' daughter and plan to transport [...] Planning Pt's family to transport pt to [place] today by 9:00a [facility]:(Clinically accepted) [address] [place] [address] (M-F) / [phone] (S-S) [phone] ? Medication Needs ? Financial ? Legal [...] selected for the patient. Cher Price LMSW *[phone] * Care Coordination-Inpatient - Allison Stockton RN - 04/03/2019 1:16 PM CDT Estrada Godoy NPH (normal pressure hydrocephalus) with Left ventriculoperitoneal shunt placeme nt on 03/29/[address] Weber. Codman valve @ 5. Neurosurgery Discharge Instructions Contact information: ? Please feel free to call Neurosurgery at any time if you have questions or are experiencing problems at discharge [phone]. Post-operative wound care: ? Your head incision [...] 11:15, CT head w/o contrast @ [facility], prior to appointment. ? 04/12/19 @ 1:45 [...] Stockton RN Clinical Nurse Coordinator Neurosurgery Office: [phone] * Case Mgmt DC Plan - Cher [...] on Dwight morning to transport p t [place] ? Info or Referral ? Discharge Planning Depending on imaging today, pt should be able to d/c tomorrow. PT and OT have s een pt today, and his family would be available to transport pt, once he is medi sterling cleared to d/c. Pt has been cleared to d/c to [facility]; pt's family anxious to leave this afternoon and Dr. Weber is okay with having them d/c to IPR; however, Via jc expressing that it is too late in the day. Family prepared to get on the road as early as possible tomorrow. SW notified t he team that they wish to leave by 9:00a tomorrow 04/04/19, with family transport . [facility]: (Clinically accepted) [address] [place] [address] (M-F) / [phone] (S-S) [phone] ? Medication Needs ? Financial ? Legal [...] selected for the patient. Cher Price LMSW *[phone] * Case Mgmt DC Plan - Cher Price - 04/01/2019 10:20 AM CDT Weekend SW attempted to prepare pt and family to d/c to [facility]; however, primary t eam stating that they have additional imaging that he is scheduled for, for shilpa . Pt will not d/c today. SW will notify [place] [facility] of pt's disposi tion. -Cher Price LMSW *[phone] * Procedures (Immed Post or Bedside) - Niall Donovan MD - 03/30/2019 5:22 PM CDT Immediate Post Procedure Note 03/30/19 Attending Physician: Ton Weber MD Emergency Services Director(s): Niall Donovan MD Procedure(s): Dx angiogram Indications: [...] the day for possible d/c to I[facility]. [place] [facility], has clinically accepted pt, but cannot accept after 4 :00 today. [facility] is able to admit on Tuesday04/01/19, however. SW has spoken with the family, who will be available to transport on Tuesday, and are agreeable to this plan. Interventions ? Support Pt's and 2 adult daughters plan to be here on Tuesday morning to transport [facility]. ? Info or Referral ? Discharge Planning Weekend SW to call the kiln charger to verify when pt is to d/c (anytime Tuesday) is appropriate, if team is agreeable. Family ( and two adult daughter) to provide transportation. Weekend SW/Bedside RN: gericare aide: [phone] Dr. Fernandez: [phone] Orders [facility]: (Clinically accepted) [address] [place] [address] ? Medication Needs ? Financial ? Legal [...] been selected for the patient. Cher Price, [facility] *[phone] * Response Teams - Juan C Dempsey RN - 03/29/2019 6:46 PM CDT EXTENSION EDGER Follow up @ 1845: The patient is [...] 5:01 PM Patient: Estrada Godoy Attending: Ton Webre MD Service: Surgery-Neuro Admission Date: 03/26/2019 LOS: 3 days A Code/Rapid Response Timeline Event Report has been created for this patient on 03/29/19 at 1639. EXTENSION EDGER called to bedside for concern of patient having staring episodes and delayed responses. Family at bedside reporting patient confused. Upon EXTENSION EDGER arrival patie nt A&Ox3, which is patient's baseline per report. Neurosurgery at bedside to assess patient. Patient moves all extremities equally and family reports his confusion has improved. Glucose 141. Patient to have post operative CT head completed. EXTENSION EDGER to follow up in approximately 2 hours [...] completion of the case. Please see n [facility] dictation for all other portions of the case. Dr. Germain was present and actively participating throughout the entirety of the procedure. Estimated Blood Loss: 1cc. Specimen(s) Removed/Disposition: * No specimens in log * Ritu Palma MD Pager [phone] * Operative Report (Direct Entry) - Paris Whiting MD - 03/29/2019 12:51 PM CDT NEUROSURGERY OPERATIVE REPORT [facility] [address]. [place], [place] [address] PATIENT NAME: Estrada Godoy MR#/PT#: [id number] DATE: 1935 DATE OF OPERATION: 03/29/19 SURGEON: Ton Weber MD CO-SURGEON: Abdi Germain MD PRESIDENT AND CHIEF COMMERCIAL OFFICER(S): Mario Pereyra MD Jack, Megan, MD PREOPERATIVE [...] The head was placed in a horseshoe evp head of smg americas experience strategy. The hair was clipped near Sridevi's point [...] site of the planned b urrhole. The transportation supervisor was used to make a burrhole. A [...] opening pressure was measured at 10. A Aditiveman Certas valve was previously set at 5. [...] so that pt can d/c to [facility] in [place]. Mr. Godoy has been clinically accepted to [facility]; family is able to tra nsport, if [...] car with family vs w/c transportation. [facility]: (Clinically accepted) [address] [place] [address] (M-F) / [phone] (S-S) [phone] ? Medication Needs ? Financial ? Legal [...] been selected for the patient. Cher Price, [facility] *[phone] * Care Plan - Alie Joya, RN [...] Kiley Girard - 03/28/2019 10:46 AM CDT MARKETING BUDGET ANALYST Note: Sent referral to Via [facility] IPR per the request of [facility] Cher Price. Kiley Girard Air Chief Marshal For additional assistance, please contact [facility] Cher Price [phone] * Case Mgmt DC Plan - Cher [...] car with family vs w/c transportation. [facility]: [address] [place] [address] (M-F) / [phone] (S-S) [phone] ? Medication Needs ? Financial ? Legal [...] selected for the patient. Cher Price, [facility] *[phone] * Case Mgmt DC Plan - Jannie [...] [facility]. Pt's pt was needing more assistance at home prior to admission, specificall y with getting up and down from sitting. Pt has a history of IPR at Via [facility] in [place], but denies any further needs at this time. Pt to OR tomorrow. Pr imary SW and RNCM to follow for discharge planning. Patient Address/Phone [address] [address] (home) Emergency Contact Extended Emergency Contact Information Primary Emergency Contact: Lindsay Godoy [facility] Mobile Relation: Spouse Secondary Emergency Contact: Dori Can Mobile Relation: Daughter Preferred language: LITHUANIAN Mail Carrier Technician needed? No Healthcare Directive Healthcare Directive: Yes, patient has a healthcare directive Type of Healthcare Directive: Durable power of assistant prosecuting attorney for healthcare Location of Healthcare Directive: Copy [...] Source of Income Source Of Income: Other residential income ? Financial Assistance Needed? n/a Psychosocial Needs ? Mental Health Mental Health History: No ? Substance Use History Substance Use History Screen: No ? Other none Current/Previous Services ? PCP Lesley Butcher, , ? Pharmacy [place] [address] [place] [address] [address] [facility] [address] ? Durable Medical Equipment Durable Medical Equipment [...] ? Outpatient Therapy PT: No OT: No BAG MACHINE OPERATOR HELPER: No ? Assisted Facility/Detention SNF: No NH: No ? Inpatient Rehab IPR: In the past Name of Facility: [facility] Would patient return for future services?: Yes ? Long-Term Acute Care Hospital LTACH: No ? Acute Hospital Stay Acute Hospital Stay: In the past Was patient's stay within the last 30 days?: No Jannie Lugo LMSW, AMELIE Annealer Helper Pager: [phone] * Care Plan - Radha Bazan RN [...] imaging of the head was performed. 3D wwsz-ol-pjdfqeblgksu of the [place] was performed prior to and [...] placed over the indwelling right-sided cochlear implant library clerical assistant/stimulator and implanted fixation magnetic by Dr. Whiting [...] imaging of the head was performed. 3D lkcv-he-efbxej images of the [place] was performed prior to and [...] placed over the indwelling right-sided cochlear implant library clerical assistant/stimulator and implanted fixation magnetic by Dr. Whiting [...] imaging of the head was performed. 3D hsha-fc-cvzpoymulghr of the [place] was performed prior to and [...] placed over the indwelling right-sided cochlear implant library clerical assistant/stimulator and implanted fixation magnetic by Dr. Whiting [...] imaging of the head was performed. 3D wdon-jb-ntgusi images of the [place] was performed prior to and [...] placed over the indwelling right-sided cochlear implant library clerical assistant/stimulator and implanted fixation magnetic by Dr. Whiting [...] suite for transradial approach under general anesthesia. PRESIDENT [employer]. Gus PRESIDENT AND CHIEF COMMERCIAL OFFICER. None ANESTHESIA. General PROCEDURE. Ultrasound guided radial [...] Heparin ~70 units/kg was administered intravenously. A 5-Montenegrin ii4bumPeptiVir Block-2 or Block-3 diagnostic catheter was introduced [...] angiography of the above named vessels. The TerumPeptiVir TR radial armband was applied and inflated [...] from pathology. The branching superior cerebellar and STRAIN TECHNICIAN vessels appear within normal limits. Compared to [...] suite for transradial approach under general anesthesia. PRESIDENT [employer] CEO [employer]. Gus PRESIDENT AND CHIEF COMMERCIAL OFFICER. None ANESTHESIA. General PROCEDURE. Ultrasound guided radial [...] Heparin ~70 units/kg was administered intravenously. A 5-[place]grin Terumo Block-2 or Block-3 diagnostic catheter was [...] from pathology. The branching superior cerebellar and STRAIN TECHNICIAN vessels appear within normal limits. Compared to [...] on 04/13/2019 10:54 AM. Performing Organization Address City/[facility] Phone Number RAD RESULTS * TYPE & CROSSMATCH (04/02/2019 10:46 AM CDT) Units Ordered 0 MAIN LAB Crossmatch 04/05/2019 MAIN LAB Expires Record Check FOUND MAIN LAB ABO/RH(D) O POS MAIN LAB Antibody Screen NEG MAIN LAB Electronic YES MAIN LAB Crossmatch Specimen Blood Performing Organization Address [facility] Corporation[facility] Phone Number MAIN LAB [address] [place] [address] * CBC AND DIFF (04/01/2019 4:28 AM [...] Basophil Count Specimen Blood Performing Organization Address City/[facility] Corporation[facility] Phone Number MAIN LAB [address] [place] [address] * BASIC METABOLIC PANEL (04/01/2019 4:28 AM CDT) Pathologist [facility] Sodium 139 137 - 147 MMOL/L [...] (L) >60 mL/min K[facility] MAIN LAB Comment: Mongolian The eGFR is not validated for use in drug dosing adjustments.Continue to use estimated creatinine clearance per dosing reference text.Please contact the Clinical Pharmacist for questions. eGFR >60 >60 mL/min K[facility] MAIN LAB Mongolian Comment: The eGFR is not validated for use in drug dosing adjustments.Continue to use estimated creatinine clearance per dosing reference text.Please contact the Clinical Pharmacist for questions. Specimen Blood Performing Organization Address City/State/Zipcode Phone Number MAIN LAB [address] [place] [address] * CBC AND DIFF (03/31/2019 4:00 AM CDT) [facility] White Blood 7.4 4.5 - 11.0 K/UL [...] Basophil Count Specimen Blood Performing Organization Address City/[facility]/Zipcode Phone Number MAIN LAB [address] [place] [address] * BASIC METABOLIC PANEL (03/31/2019 4:00 AM [...] >60 >60 mL/min [facility] MAIN LAB Comment: Mongolian The eGFR is not validated for use in drug dosing adjustments.Continue to use estimated creatinine clearance per dosing reference text.Please contact the Clinical Pharmacist for questions. eGFR >60 >60 mL/min [facility] MAIN LAB Mongolian Comment: The eGFR is not validated for use in drug dosing adjustments.Continue to use estimated creatinine clearance per dosing reference text.Please contact the Clinical Pharmacist for questions. Specimen Blood Performing Organization Address City/[facility] Corporation[facility] Phone Number MAIN LAB [address] [place] [address] * IR ARTERIOGRAM NEURO (03/30/2019 4:26 PM [...] brought the angiography suite for formal evaluation. PRESIDENT & CEO [employer]. Gus PRESIDENT AND CHIEF COMMERCIAL OFFICER. Niall Donovan, PGY 7 ANESTHESIA. Local with [...] insure maintain an air free system. A 5-Montenegrin diagnostic catheter was introduced through the sheath.Utilizing a combination of roadmap, guidewire and direct catheter access techniques, a 5 Montenegrin diagnostic catheter was used to perform diagnostic [...] brought the angiography suite for formal evaluation. PRESIDENT [employer] CEO [employer]. Gus PRESIDENT AND CHIEF COMMERCIAL OFFICER. Naill Donovan, PGY 7 ANESTHESIA. Local with Sedation [...] insure maintain an air free system. A 5-Montenegrin diagnostic catheter was introduced through the sheath. Utilizing a combination of roadmap, guidewire and direct catheter access techniques, a 5 Montenegrin diagnostic catheter was used to perform diagnostic [...] Basophil Count Specimen Blood Performing Organization Address City/[facility] Corporationcode Phone Number MAIN LAB [address] [place] [address] * BASIC METABOLIC PANEL (03/30/2019 4:25 AM [...] >60 >60 mL/min [facility] MAIN LAB Comment: Mongolian The eGFR is not validated for use in drug dosing adjustments.Continue to use estimated creatinine clearance per dosing reference text.Please contact the Clinical Pharmacist for questions. eGFR >60 >60 mL/min K[facility] MAIN LAB Mongolian Comment: The eGFR is not validated for use in drug dosing adjustments.Continue to use estimated creatinine clearance per dosing reference text.Please contact the Clinical Pharmacist for questions. Specimen Blood Performing Organization Address City/[facility] Corporation[facility] Phone Number [facility] MAIN LAB [address] [place] [address] * C SPINE 3 VIEWS OR LESS [...] PM CDT) Specimen Impressions Performed At 1.Intact BUNDLE SORTER shunt tubing without kink or fracture. KU [...] pneumothorax, or lobar consolidation. IMPRESSION 1. Intact BUNDLE SORTER shunt tubing without kink or fracture. 2. [...] Performed At Intact abdominal segment of the BUNDLE SORTER shunt catheter with no evidence of kinking [...] quadrant. IMPRESSION Intact abdominal segment of the BUNDLE SORTER shunt catheter with no evidence of kinking [...] on 03/30/2019 7:04 AM. Performing Organization Address [facility] Corporationcond Phone Number RAD RESULTS * POC GLUCOSE (03/29/2019 4:43 PM CDT) Pathologist [facility] Glucose, POC 141 (H) 70 - 100 MG/DL MAIN LAB Specimen Performing Organization Address [facility]/[place] Phone Number MAIN LAB [address] [place] [phone] * PROTIME INR (PT) (03/29/2019 7:28 AM CDT) [facility] INR 1.1 0.8 - 1.2 MAIN LAB Specimen Blood Performing Organization Address [facility]/[place] Phone Number MAIN LAB [address] [phone] * CBC AND DIFF (03/29/2019 4:04 AM CDT) Pathologist [facility] White Blood 6.3 4.5 - 11.0 [...] Basophil Count Specimen Blood Performing Organization Address City/[facility]/Zipcode Phone Number MAIN LAB [address] [place] [address] * BASIC METABOLIC PANEL (03/29/2019 4:04 AM [...] 57 (L) >60 mL/min MAIN LAB Comment: Mongolian The eGFR is not validated for use in drug dosing adjustments.Continue to use estimated creatinine clearance per dosing reference text.Please contact the Clinical Pharmacist for questions. eGFR >60 >60 mL/min MAIN LAB Mongolian Comment: The eGFR is not validated for use in drug dosing adjustments.Continue to use estimated creatinine clearance per dosing reference text.Please contact the Clinical Pharmacist for questions. Specimen Blood Performing Organization Address City/[facility] Phone Number [facility] LAB [address] [place] [address] * BLOOD TYPE CONFIRMATION - ORDER ONLY IF REQUESTED BY LAB (03/28/2019 8:48 PM CDT) ABO/RH(D) O POS MAIN LAB Specimen Blood Performing Organization Address City/[facility]/Zipcode Phone Number MAIN LAB [address] [place] [address] * TYPE & CROSSMATCH (03/28/2019 7:25 PM CDT) Units Ordered 2 MAIN LAB Crossmatch 03/31/2019 [facility] MAIN LAB Expires Record Check 2ND TYPE REQUIRED [facility] MAIN LAB ABO/RH(D) O POS [facility] MAIN LAB Antibody Screen NEG [facility] MAIN LAB Electronic YES MAIN LAB Crossmatch Specimen Blood Performing Organization Address City/[facility]/Zipcode Phone Number MAIN LAB [address] [place] [address] * CBC AND DIFF (03/28/2019 4:20 AM [...] Basophil Count Specimen Blood Performing Organization Address City/[facility]/Zipcode Phone Number MAIN LAB [address] [place] [address] * BASIC METABOLIC PANEL (03/28/2019 4:20 AM [...] >60 >60 mL/min [facility] MAIN LAB Comment: Mongolian The eGFR is not validated for use in drug dosing adjustments.Continue to use estimated creatinine clearance per dosing reference text.Please contact the Clinical Pharmacist for questions. eGFR >60 >60 mL/min [facility] MAIN LAB Mongolian Comment: The eGFR is not validated for use in drug dosing adjustments.Continue to use estimated creatinine clearance per dosing reference text.Please contact the Clinical Pharmacist for questions. Specimen Blood Performing Organization Address City/State/Zipcode Phone Number MAIN LAB [address] [place] [address] * 2-D + DOPPLER ECHOCARDIOGRAM (03/27/2019 10:35 [...] area= LAB AV index 0.85 OTHER OUTSIDE ([place]) LAB E/A ratio 0.80 OTHER OUTSIDE LAB LVOT area 2.72 cm2 OTHER OUTSIDE LAB LVOT stroke 70.10 cm3 OTHER OUTSIDE volume LAB TV rest 21 mmHg OTHER OUTSIDE pulmonary LAB artery pressure E/E' ratio 6.43 OTHER OUTSIDE LAB Left Atrium 16.09 16 - 34 OTHER OUTSIDE Index LAB Cardiology Siemens [id number] OTHER OUTSIDE Ultrasound LAB Machine Left Ventricle [...] City/State/Zipcode Phone Number [facility] MAIN LAB [address] [place] [address] * BASIC METABOLIC PANEL (03/27/2019 3:47 AM CDT) [facility] Sodium 138 137 - 147 MMOL/L KU [...] >60 >60 mL/min [facility] MAIN LAB Comment: Mongolian The eGFR is not validated for use in drug dosing adjustments.Continue to use estimated creatinine clearance per dosing reference text.Please contact the Clinical Pharmacist for questions. eGFR >60 >60 mL/min [facility] MAIN LAB Mongolian Comment: The eGFR is not validated for use in drug dosing adjustments.Continue to use estimated creatinine clearance per dosing reference text.Please contact the Clinical Pharmacist for questions. Specimen Blood Performing Organization Address City/State/Zipcode Phone Number MAIN LAB [address] [place] [address] * CBC AND DIFF (03/27/2019 3:47 AM CDT) Pathologist [facility] White Blood 6.5 4.5 - 11.0 [...] Basophil Count Specimen Blood Performing Organization Address City/[facility]/Zipcode Phone Number MAIN LAB [address] [place] [address] * BASIC METABOLIC PANEL (03/26/2019 1:12 PM [...] (L) >60 mL/min [facility] MAIN LAB Comment: Mong[place]ian The eGFR is not validated for use in drug dosing adjustments.Continue to use estimated creatinine clearance per dosing reference text.Please contact the Clinical Pharmacist for questions. eGFR >60 >60 mL/min [facility] MAIN LAB Mong[place]ian Comment: The eGFR is not validated for use in drug dosing adjustments.Continue to use estimated creatinine clearance per dosing reference text.Please contact the Clinical Pharmacist for questions. Specimen Blood Performing Organization Address City/[facility]/Zipcode Phone Number [facility] LAB [address] [place] [address] * PTT (APTT) (03/26/2019 1:12 PM CDT) APTT 34.3 24.0 - 36.5 SEC MAIN LAB Specimen Blood Performing Organization Address City/[facility]/Zipcode Phone Number [facility] LAB [address] [place] [address] * PROTIME INR (PT) (03/26/2019 1:12 PM CDT) INR 2.3 (H) 0.8 - 1.2 [facility] MAIN LAB Specimen Blood Performing Organization Address [facility] Phone Number MAIN LAB [address] [phone] * CBC AND DIFF (03/26/2019 1:12 PM CDT) Pathologist [facility] White Blood 5.1 4.5 - 11.0 [...] Basophil Count Specimen Blood Performing Organization Address City/[facility]/Zipcode Phone Number MAIN LAB [address] [phone] * TELEMETRY STRIPS-SCAN (03/26/2019 12:00 AM CDT) Narrative Performed At Ordered by an unspecified provider. * ECG-SCAN (03/26/2019 12:00 AM CDT) Narrative Performed At Ordered by an unspecified provider. 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 Administered Medications Action Date Dose Rate Site Medication Order MAR 04/01/2019 9:31 AM CDT 650 mg acetaminophen [...] 40 mg Given 04/02/2019 8:23 AM CDT 03/29/2019 1:03 PM CDT 500 mL bacitracin (BACIIM) 50,000 Units in Given Ringer's 500 mL irrigation bottle 500 mL, INTRA-PROCEDURE MED, Starting Meeta 03/29/19 at 1303, Until Meeta 03/29/19 at 1353, Intra-op 03/29/2019 1:31 PM CDT 1 Dose bacitracin topical ointment Given INTRA-PROCEDURE MED, Starting Meeta 03/29/19 at 1331, Until Meeta 03/29/19 at 1353, Intra-op 04/04/2019 8:18 AM CDT 1,000 Units cholecalciferol [...] 40 mg Given 04/02/2019 8:23 AM CDT 04/04/2019 8:18 AM CDT 100 mg docusate (COLACE) capsule 100 mg Given 100 mg, Oral, TWICE DAILY, First dose on Tue03/26/19 at 1300, Until Discontinued, Hold for loose stools., 100 mg Given 04/03/2019 9:19 PM CDT 100 mg Given 04/03/2019 11:10 AM CDT 04/04/2019 7:18 AM CDT 5,000 Units Abdominal Tissue heparin (porcine) PF syringe 5,000 Units Given 5,000 Units, Subcutaneous, EVERY 8 HOURS, First dose on Tue04/03/19 at 2200, Until Discontinued, NOTE: This is a HIGH ALERT Medication., 5,000 Units Abdominal Tissue Given 04/03/2019 9:20 PM CDT 03/29/2019 12:50 PM CDT 3 mL lidocaine 1%/EPINEPHrine 1:100,000 Given injection INTRA-PROCEDURE MED, Starting Meeta 03/29/19 at 1250, Until Meeta 03/29/19 at 1353, Intra-op 04/04/2019 8:18 AM CDT 50 mg losartan [...] 5 mg Given 04/01/2019 9:12 PM CDT 04/04/2019 8:18 AM CDT 10 mL milk of magnesia (CONC) oral suspension Given 10 mL 10 mL, Oral, DAILY, First dose on Tue03/26/19 at 1300, Until Discontinued, 10 mL CONC=30 mL MOM, 10 mL Given 04/03/2019 11:14 AM CDT 10 mL Given 04/02/2019 8:23 AM CDT 04/04/2019 8:17 AM CDT [address] (PROTONIX) tablet 40 mg Given 40 mg, Oral, DAILY, First dose on Tue03/26/19 at 1245, Until Discontinued, Do not crush or chew tablet., 40 mg Given 04/03/2019 11:15 AM CDT 40 mg Given 04/02/2019 8:23 AM CDT 04/03/2019 9:21 PM CDT 0.25 mg rOPINIRole [...] 1 tablet Given 04/03/2019 11:13 AM CDT 04/04/2019 8:18 AM CDT 25 mg spironolactone [...] 0.4 mg Given 04/02/2019 8:23 AM CDT 03/29/2019 1:04 PM CDT 5,000 Units thrombin 5,000 unit topical solution Given INTRA-PROCEDURE MED, Starting Meeta 03/29/19 at 1304, Until Meeta 03/29/19 at 1353, Intra-op documented in this encounter
--- OUTSIDE RECORDS SUMMARY | 2019-05-25 01:01 | XMS REPORT | Encounter Summary ---
Author Author [facility] Organization [facility] Address Unknown Phone Unavailable Care Team Providers Care Employment Interviewer Name Role Phone Michael Velasquez MD Unavailable Lesley Butcher MD PCP Reason for Visit * Reason Comments Cochlear Implant Encounter Details Care Team Description Date Type Department Monalisa Leon AUD Sensorineural hearing loss (SNHL) of both ears 02/05/[address] [facility] [address] [place] [address] Social History Date Tobacco Use [...] on such as memory. Internal Device Ear Storekeeper Helper Internal Device Initial Stimulation Date Surgery Date Time Post Initial Stimulation Surgeon Carmen Cuadra Biourbano Linda Feliciano MS 03/10/18 02/24/18 11 months Yung Moreno MD Equipment: Ear Processor(s) Serial Number Magnet Strength Processor Condition R Beena CI [id number] good Equipment: good - primary cable [...] Hearing Aid: Patient wears a BTE from [employer]. Storekeeper Helper: [employer] Model: Serial Numbers: Repair Warranty: L&D [...] would like this to be completed in [place] if possible) and possibly a ref erral [...]
--- OUTSIDE RECORDS SUMMARY | 2019-05-25 01:01 | XMS REPORT | Encounter Summary ---
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 Encounter Details Care Team Description Date Type Department Ton Weber MD [address] [facility] [place] [address] [place] [address] NPH (normal pressure hydrocephalus) (Primary Dx); Intracranial aneurysm 03/26/2019 Office Visit [facility] [address] [place] [address] Social History Date Tobacco Use [...] Signs Reading Time Taken Comments Vital Sign 122/85 03/26/2019 10:20 AM CDT Blood Pressure 69 03/26/2019 10:20 AM CDT Pulse - - Temperature - - Respiratory Rate - - Oxygen Saturation - - Inhaled Oxygen Concentration 95.3 kg (210 lb) 03/26/2019 10:20 AM CDT Weight 182.9 cm (6') 03/26/2019 10:20 AM CDT Height 28.48 03/26/2019 10:20 AM CDT Body Mass Index documented in this encounter Functional Status Date of Assessment Functional Status Response 03/26/2019 Does the patient have a hearing impairment: Yes documented as of this encounter Progress Notes * Ton Weber MD - 03/26/2019 10:30 AM CDT ATTENDING NOTE: I personally seen and examined [...] in progressive compromise to quality of life. Whether the aneurysm is independently symptomatic cannot be known until the hydr ocephalus is addressed and the patient reassessed. I am admitting the patient directly to the hospital to expedite the medical work -up to optimize the patient for shunt surgery, and then aneurysm work-up. The ac al treatment of the aneurysm, if pursued, will be planned for a future date, a s the required anti-coagulation regimen must be remote from the time of shunt pl acement. I spent 60 minutes on the care of this patient, over half in direct consultation . Assessment/Plan: Estrada Godoy is a 84 y.o. 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 It has [...] as well as AC plan -Plan for BALE STACKER shunt once medically optimized -Consideration for treatment [...] coronary stents, AAA who present s to [facility] with complaints of roughly one years [...] part of a recommendation by ashley pierce circus rider which brought to attention the giant basilar [...] [id number]) performed by Yung Moreno MD at [facility] OR/P eriop TISSUE TRANSFER Right 11/03/2018 ADJACENT TISSUE TRANSFER PEDICLE FLAP (THINNING OF SCALP ABOVE MAGNET) perfor med by Yung Moreno MD at [facility] OR/Periop CORONARY ANGIOPLASTY x5 HX HEART [...] (03/26 1237) O2 Delivery: None (Room Air) (03/26 123) Height: 182.9 cm (72") (03/26 1020) BP: [...] uploaded to cloud reviewed Fuad Dawson MD * Glenna Navarro - 03/26/2019 10:30 AM CDT Estrada is a new patient to the clinic. He is referred for evaluation and treatme nt recommendations for CTA findings of a 2.5 x 3.7 cm basilar artery aneurysm. documented in this encounter Plan of Treatment Not on filedocumented as of this encounter Visit Diagnoses Diagnosis NPH (normal pressure hydrocephalus) - Primary Idiopathic normal pressure hydrocephalus (INPH) Intracranial aneurysm Cerebral aneurysm, nonruptured documented in this encounter
--- OUTSIDE RECORDS SUMMARY | 2019-05-25 01:01 | XMS REPORT | Encounter Summary ---
Author Author [facility] Organization [facility] Address Unknown Phone Unavailable Care Team Providers Care Wound Nurse Name Role Phone Michael Velasquez MD Unavailable Lesley Butcher MD PCP Reason for Visit * Reason Comments Vestibular Testing Encounter Details Care Team Description Date Type Department Karis Castro, AUD [address] [place] [address] Dizziness 02/05/2019 Procedure visit [facility] [address] [place] [address] Social History Date Tobacco Use [...]
--- OUTSIDE RECORDS SUMMARY | 2019-05-25 01:01 | XMS REPORT | Encounter Summary ---
Author Author [facility] Organization [facility] Address Unknown Phone Unavailable Care Team Providers Care Motor Assembler Name Role Phone Michael Velasquez MD Unavailable Lesley Butcher MD PCP Reason for Visit * Reason Comments Appointment Encounter Details Care Team Description Date Type Department Roxana Prieto Appointment 12/20/2018 Telephone [facility] [address] [place] [address] Social History Date Tobacco Use [...] encounter Miscellaneous Notes * Telephone Encounter - Roxana Prieto - 12/20/2018 2:08 PM GROUP SOCIAL WORKER Lvm informing patient that appt would need to be rescheduled. Left new appt and CC # in case appt does not work. - TS P SOCIAL WORKER documented in this encounter Plan of Treatment Not on filedocumented as of this encounter Visit Diagnoses Not on filedocumented in this encounter
--- OUTSIDE RECORDS SUMMARY | 2019-05-25 01:01 | XMS REPORT | Encounter Summary ---
Author Author [facility] Organization [facility] Address Unknown Phone Unavailable Care Team Providers Care Dry Color Tester Name Role Phone Michael Velasquez MD Unavailable Lesley Butcher MD PCP Reason for Visit * Reason Comments Cochlear Implant Encounter Details Care Team Description Date Type Department Kendal Leonardo AUD [address] [facility] [address] [place], [place] [id number] Sensorineural hearing loss, bilateral 11/29/[address] [facility] [address] [place] [address] Social History Date Tobacco Use [...] Kendal Leonardo AUD - 11/29/2018 2:00 PM FURNACE OPERATOR Estrada Godoy was seen in the [...] on with his implant. Internal Device Ear Mold Repair Technician Internal Device Initial Stimulation Date Surgery Date Time Post Initial Stimulation Surgeon R Advanced Bionic HiRgen Ultra MS 03/10/18 02/24/18 8 months Yung Moreno MD Equipment: Ear Processor(s) Serial Number Magnet Strength Processor Condition R Beena CI [id number] good Programming: Impedances: within normal limits Electrodes Deactivated: none Data Logging: Magnet: His magnet is sticking well today M levels were assessed using tonebursts and loudness scaling. Mr. Walt rutherford ad some difficulty with the loudness scaling task as he confused pitch and volum e. T levels were increased by ~10 steps and the microphone was set to omni direc tional. Upon activation in live voice, he reported that the clinician's voice was too loud. M levels were globally reduced. Then he reported that the clinician's voice was in a barrel. Clear voice was increased to medium, mid to high frequency M levels were incr eased, IDR was decreased to 75, and sound relax was disabled. Following these changes, Mr. Godoy reported a clearer, improved sound gaby lity. With his hearing aid placed on the left ear, he noted that the sound quality was better than his walkin settings. He was advised that today's settings are different. It was recommended that h e try to adjust to hearing sounds in his environment as his previous setting (Ul traZoom) was very restricting. He was provided with autoUltraZoom as a second pr ogram. It was recommended that he use this for restaurant settings. Maps/Programs: Program Beena CI Q90 Processor 1 Omni directional (Processor + Tmic) 2 autoUltraZoom His backup sound processor was programmed Assessment of Aural Rehab Status: START: 2:55, END: 3:30PM An aided soundfield audiogram revealed thresholds at expected levels from 250-6k Hz. Test 2/13/19 (8 months) 06/09/18 (3 months) 04/07/18 (1 [...] Hearing Aid: Patient wears a BTE from [employer]. Mold Repair Technician: [employer] Model: Serial Numbers: Repair Warranty: L&D Warranty: Battery: 675 Domes: full mold Programs: Volume: Summary: Mr. Godoy shows a slight dip in performance today with the cochlear impla nt. Multiple changes to his programming settings were made, which may take him ti me to adjust. It was recommended that he try today's changes and follow-up in 3 months for repeat testing. Recommendations: Mr. Godoy should return to the clinic in 3 months for continued programming and outcome measurements with Nelson Joseph Follow-up with hearing aid provider to have left hearing aid checked. ACE OPERATOR documented in this encounter Plan of Treatment Not on filedocumented as of this encounter Procedures Comments Procedure Name Priority Date/Time Associated Diagnosis AUDIOMETRY WITH Routine 11/29/2018 TYMPANOMETRY 3:55 PM FURNACE OPERATOR COCHLEAR IMPLANT Routine 11/29/2018 OUTCOMES-AUDIOGRAM documented in this encounter Visit Diagnoses Diagnosis Sensorineural hearing loss, bilateral documented in this encounter
--- OUTSIDE RECORDS SUMMARY | 2019-05-25 01:01 | XMS REPORT | Encounter Summary ---
Author Author [facility] Organization [facility] Address Unknown Phone Unavailable Care Team Providers Care Printing Press Operator Apprentice Name Role Phone Michael Velasquez MD Unavailable Lesley Butcher MD PCP Reason for Visit * Auth/Cert Referred By Contact Referred To Contact Status Reason Specialty Diagnoses / Procedures Diagnoses Cerebral Aneurysm Encounter Details Care Team Description Date Type Department Juan J Reilly MD [address] [place] [address] 03/29/2019 Anesthesia [facility] [place] [address] Anesthesia Record Responsible Anesthesiologist Anesthesia Start Time Anesthesia Stop Time Procedure Name Christian Joel MD 03/29/19 1214 03/29/19 1356 CREATION SHUNT - VENTRICULO-PERITONEAL (Right Head) Date Time Event Comment 1147 1150 AN Equip Check 1212 Out of Pre Procedure 1213 In Room 1214 Anes Start 1217 An Start Data 1220 An Induction The patient was reevaluated immediately before moderate or deep sedation use and before anesthesia induction. 1224 An Intubation 1233 Anesthesia Ready 1246 Antibiotic Given 1251 Proc Start 1348 An Extubation 1352 an stop data 1356 Handoff to RN I completed my SBAR handoff to the receiving nurse. 1356 An Stop Meds Name Total lidocaine (2%) 200 mg/10mL Injection 120 mg syringe propofol (DIPRIVAN) 200 mg/ 20 mL 120 mg injection (VIAL) rocuronium (ZEMURON) injection 60 mg ondansetron (ZOFRAN) injection 4 mg dexamethasone (DECADRON) 4 mg/mL 4 mg injection phenylephrine (ANIBAL-SYNEPHRINE) 0.1 mg/mL 50 mcg injection (SYRINGE) sugammadex (BRIDION) 100 mg/mL iv soln 200 mg dextran 70/hypromellose (GENTEAL TEARS; 2 drop BION TEARS) ophthalmic solution remifentanil (ULTIVA) 1 mg/3 mL 1,000 352.61 mcg mcg in sodium chloride 0.9% (NS) 20 mL Injection propofol (DIPRIVAN) infusion 710.94 mg acetaminophen (OFIRMEV) 1,000 mg 1,000 mg injection ketorolac (TORADOL) 30 mg injection IV 15 mg ePHEDrine 50 mg/mL 50 mg in sodium 5 mg chloride PF 0.9% 5 mL IV syringe vasopressin (VASOSTRICT) 20 units/mL IV 2 Units soln (VIAL) ceFAZolin (ANCEF) injection 2 g sodium chloride 0.9 % infusion 500 mL * Name O2 N2O Inspired * No blood administrations on file. Removal [...] for Wound; Puncture wound prior to admission [facility] Pressure Injuries) Wounds 03/29/19; 1315; Anterior, Left; Head; 03/29/19 1315 by Marlyn, (NOT for Surgical Incision [facility] Pressure Injuries) Wounds 03/29/19; 1316; Anterior, Left, Upper; 03/29/19 1316 by Marlyn, (NOT for Abdomen; Surgical Incision [facility] Pressure Injuries) 03/31/19 0700 by Crystal Coombs, RN Peripheral 03/26/19; 1618; RN; L; Wrist; 22 G; 03/26/19 1618 by IV 03/31/19; 0700 (Not present upon Kelin Mills RN assessment) 03/29/19 1348 by Jojo Cardenas MD ETT 03/29/19; 1224; Ventilated by mask (1); 03/29/19 1224 by Direct laryngoscopy, Stylet; Juan J Reilly MD Single-Lumen, Cuffed; 7.5mm; Mac; 3; Oral; 1-Full view of the glottis; 1 insertion attempt; Auscultation, ETCO2 Detector; 22 centimeters; atraumatic; dentition unchanged following tube placement; 03/29/19; 1348 04/02/19 1053 by Yi Farris RN Peripheral 03/29/19; 1236; Provider; R; Wrist; 18 03/29/19 1236 by IV G; 3; 04/02/19; 1053 Juan J Reilly MD documented in this encounter Social History Date [...] OR Notes * Anesthesia Postprocedure Evaluation - Nirmala Galan MD - 03/29/2019 3:32 PM CDT Post-Anesthesia Evaluation Name: Estrada Godoy : 1935 Age: 84 y.o. Sex: male Procedure Date: 03/29/2019 Procedure: Procedure(s) with comments: CREATION SHUNT - VENTRICULO-PERITONEAL - CASE LENGTH 1 HOUR, DR. BOWER TO ASSIST , REQUEST START Surgeon: Surgeon(s): Gus, Ton, Burke Perez MD Kilgore, Lyndsey, MD Alley, John, MD Chatley, Kevin S, MD Jack, Megan, MD Post-Anesthesia Vitals BP: 122/71 (03/29 1517) Temp: 36.4 C (97.5 F) (03/29 1517) Pulse: 51 (03/29 1517) Respirations: 16 PER MINUTE (03/29 1517) SpO2: 95 % (03/29 1517) O2 Delivery: None (Room Air) (03/29 1517) SpO2 Pulse: 55 (03/29 1447) Post Anesthesia Evaluation Note Evaluation location: Pre/Post Patient participation: recovered; patient participated in evaluation Level of consciousness: alert Pain score: Pain scale: adequate. Pain management: adequate Hydration: normovolemia Temperature: 36.0C - 38.4C Airway patency: adequate Perioperative Events Post-op nausea and vomiting: no PONV Postoperative Status Cardiovascular status: hemodynamically stable Respiratory status: spontaneous ventilation Follow-up needed: none Perioperative Events Perioperative Event: No Emergency Case Activation: No * Anesthesia Preprocedure Evaluation - Christian Joel MD - 03/28/2019 2:18 PM CDT Anesthesia Pre-Procedure Evaluation Name: Estrada Godoy : 1935 Age: 84 y.o. Sex: male Procedure Date: 03/29/2019 Procedure: Procedure(s) with comments: CREATION SHUNT - VENTRICULO-PERITONEAL - CASE LENGTH 1 HOUR, DR. BOWER TO ASSIST , REQUEST 1ST START Physical Assessment Vital Signs (last filed in past 24 hours): BP: 137/72 (03/29 1100) Temp: 36.8 C (98.2 F) (03/29 1100) Pulse: 54 (06/13 1100) Respirations: 17 PER MINUTE (03/29 1100) SpO2: 96 % (03/29 1100) O2 Delivery: None (Room Air) (03/29 1100) Patient History Allergies Allergen Reactions Contrast Dye [...] history of anesthetic complications Airway - negative 05/11/18; Ventilated by mask (1); Direct laryngoscopy, Stylet; [...] stopped in February, last dose of Warfarin Tuesday PM GI/Hepatic/Renal GERD, well controlled No hx of [...] No motor deficit Comments: Fall 1 week ago Constitutional findings: Negative Diagnostic Tests Hematology: Lab Results Component Value Date HGB 12.6 03/29/2019 HCT 35.8 03/29/2019 PLTCT 193 03/29/2019 WBC 6.3 03/29/2019 NEUT 57 03/29/2019 ANC 3.50 03/29/2019 ALC 2.00 03/29/2019 KAT 7 03/29/2019 AMC 0.40 03/29/2019 EOSA 4 03/29/2019 ABC 0.00 03/29/2019 MCV 87.1 03/29/2019 MCH 30.8 03/29/2019 MCHC 35.3 03/29/2019 MPV 8.2 03/29/2019 RDW 14.4 03/29/2019 General Chemistry: Lab Results Component Value Date NA 139 03/29/2019 K 3.9 03/29/2019 CL 108 03/29/2019 CO2 24 03/29/2019 GAP 7 03/29/2019 BUN 18 03/29/2019 CR 1.21 03/29/2019 GLU 104 03/29/2019 CA 9.1 03/29/2019 Coagulation: Lab Results Component Value Date PTT 34.3 03/26/2019 INR 1.1 03/29/2019 Anesthesia Plan ASA score: 3 Plan: general Induction method: intravenous NPO status: acceptable Informed Consent Anesthetic plan and risks discussed with patient. Use of blood products discussed with patient Blood Consent: consented Plan discussed with: JADEN. documented in this encounter Plan of Treatment Not on filedocumented as of this encounter Visit Diagnoses Not on filedocumented in this encounter Administered Medications Action Date Dose Rate Site Medication Order MAR Action 03/29/2019 1:25 PM CDT 1,000 mg acetaminophen (OFIRMEV) injection Given Administer over 15 Minutes, INTRA-PROCEDURE MED, Starting Meeta 03/29/19 at 1325, Until Meeta 03/29/19 at 1403, Anesthesia Intra-op 03/29/2019 12:46 PM CDT 2 g ceFAZolin (ANCEF) injection Given INTRA-PROCEDURE MED, Starting Meeta 03/29/19 at 1246, Until Meeta 03/29/19 at 1403, Anesthesia Intra-op 03/29/2019 12:48 PM CDT 4 mg dexamethasone (DECADRON) injection Given Intravenous, INTRA-PROCEDURE MED, Starting Meeta 03/29/19 at 1248, Until Meeta 03/29/19 at 1403, Anesthesia Intra-op 03/29/2019 12:25 PM CDT 2 drops dextran 70/hypromellose (GENTEAL TEARS; Given BION TEARS) ophthalmic solution INTRA-PROCEDURE MED, Starting Meeta 03/29/19 at 1225, Until Meeta 03/29/19 at 1403, Anesthesia Intra-op 03/29/2019 12:44 PM CDT 5 mg ePHEDrine 50 mg/mL 50 mg in sodium Given - New chloride PF 0.9% 5 mL IV syringe Bag 5 mL, INTRA-PROCEDURE MED(CONT), Starting Meeta 03/29/19 at 1244, Until Meeta 03/29/19 at 1403, Anesthesia Intra-op 03/29/2019 1:33 PM CDT 15 mg ketorolac (TORADOL) injection Given INTRA-PROCEDURE MED, Starting Meeta 03/29/19 at 1333, Until Meeta 03/29/19 at 1403, Anesthesia Intra-op 03/29/2019 12:20 PM CDT 120 mg lidocaine (PF) injection Given INTRA-PROCEDURE MED, Starting Meeta 03/29/19 at 1220, Until Meeta 03/29/19 at 1403, Anesthesia Intra-op 03/29/2019 1:30 PM CDT 4 mg ondansetron (ZOFRAN) injection Given Intravenous, INTRA-PROCEDURE MED, Starting Meeta 03/29/19 at 1330, Until Meeta 03/29/19 at 1403, Anesthesia Intra-op 03/29/2019 12:39 PM CDT 50 mcg phenylephrine in NS injection syringe Given Intravenous, INTRA-PROCEDURE MED, Starting Meeta 03/29/19 at 1239, Until Meeta 03/29/19 at 1403, Anesthesia Intra-op 03/29/2019 1:29 PM CDT 50 mcg/kg/min 28.6 mL/hr propofol (DIPRIVAN) infusion Dose/Rate 100 mL, INTRA-PROCEDURE MED(CONT), Change Starting Meeta 03/29/19 at 1225, Until Meeta 03/29/19 at 1403, Anesthesia Intra-op 100 mcg/kg/min 57.2 mL/hr Dose/Rate Change 03/29/2019 12:38 PM CDT 120 mcg/kg/min 68.6 mL/hr Given - New Bag 03/29/2019 12:20 PM CDT 03/29/2019 12:29 PM CDT 20 mg propofol (DIPRIVAN) injection Given INTRA-PROCEDURE MED, Starting Meeta 03/29/19 at 1229, Until Meeta 03/29/19 at 1403, Anesthesia Intra-op 100 mg Given 03/29/2019 12:20 PM CDT 03/29/2019 12:25 PM CDT 0.05 mcg/kg/min 5.7 mL/hr remifentanil (ULTIVA) 1 mg/3 mL 1,000 Given - New mcg in sodium chloride 0.9% (NS) 20 mL Bag Injection INTRA-PROCEDURE MED(CONT), Starting Meeta 03/29/19 at 1225, Until Meeta 03/29/19 at 1403, Anesthesia Intra-op 03/29/2019 12:22 PM CDT 60 mg rocuronium (ZEMURON) injection Given Intravenous, INTRA-PROCEDURE MED, Starting Meeta 03/29/19 at 1222, Until Meeta 03/29/19 at 1403, Anesthesia Intra-op 03/29/2019 1:33 PM CDT 200 mg sugammadex (BRIDION) injection Given Intravenous, INTRA-PROCEDURE MED, Starting Meeta 03/29/19 at 1333, Until Meeta 03/29/19 at 1403, Anesthesia Intra-op 03/29/2019 1:16 PM CDT 1 Units vasopressin (VASOSTRICT) injection Given INTRA-PROCEDURE MED, Starting Meeta 03/29/19 at 1250, Until Meeta 03/29/19 at 1403, Anesthesia Intra-op 1 Units Given 03/29/2019 12:50 PM CDT documented in this encounter
--- OUTSIDE RECORDS SUMMARY | 2019-05-25 01:01 | XMS REPORT | Encounter Summary ---
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) 11/29/2018 Office Visit [facility] [address] Level [address] [place] [address] Social History Date Tobacco Use [...] Signs Reading Time Taken Comments Vital Sign 116/75 11/29/2018 1:29 PM STORAGE MANAGER Blood Pressure 92 11/29/2018 1:29 PM STORAGE MANAGER Pulse - - Temperature - - Respiratory Rate - - Oxygen Saturation - - Inhaled Oxygen Concentration 97.1 kg (214 lb) 11/29/2018 1:29 PM STORAGE MANAGER Weight 182.9 cm (6') 11/29/2018 1:29 PM STORAGE MANAGER Height 29.02 11/29/2018 1:29 PM STORAGE MANAGER Body Mass Index documented in this encounter Progress Notes * Yung Moreno MD - 11/29/2018 1:50 PM STORAGE MANAGER Date of Service: 11/29/2018 Subjective: Estrada Godoy is a 83 y.o. male. History of Present Illness Estrada's magnet is sticking on better now, he does have persistent imbalance, hi s hearing is also not that greatly improved. Chief Complaint Post Operative Visit PMH, SH, FH, allergies, and medications listed below have been reviewed. History reviewed. No pertinent family history. No Known Allergies Past Surgical History: Procedure Laterality Date COCHLEAR IMPLANT Right 02/24/2018 INSERTION COCHLEAR DEVICE (CPT L8614) performed by Yung Moreno MD at [facility] OR/Per iop TISSUE TRANSFER Right 11/03/2018 ADJACENT TISSUE TRANSFER PEDICLE FLAP (THINNING OF SCALP ABOVE MAGNET) performe d by Yung Mroeno MD at [facility] OR/Periop CORONARY ANGIOPLASTY x5 HX HEART CATHETERIZATION [...] by mouth daily. Take with f ood. atorvastatin (LIPITOR) 40 mg tablet Take 40 mg by mouth daily. carvedilol (COREG) 12.5 mg tablet Take 12.5 mg by mouth Twice Daily With Jessica ls. cholecalciferol (VITAMIN D) 1,000 units tablet Take [...] mg tablet Take one tablet by mouth e very 4 hours as needed for Pain Earliest [...] around the magnet site. He has got t he implant on. His eardrums look normal. Neat Appearance: Yes Oral Communication: Yes Clear Voice: Yes Neuro: Left: Right: CN VII 10/22 10/22 CN 3,4,5,6 nl nl CN 9,10,11,12 nl nl Hearing grossly intact Normal respiratory effort No abdominal tenderness Head/Face lesions? N Ext ear/nose lesions? N Spont Nyst N Gaze Nystagmus N Affect Abnormal N Edema/extremity changes? N EOM restriction? N Orientation Abn N Assessment and Plan: Estrada's magnet is sticking on better now, he does have persistent imbalance, hi s hearing is also not that greatly improved. Exam today reveals a well-healing incision around the magnet site. He has got t he implant on. His eardrums look normal. He is status post right cochlear implant, about 9 months out. He had improvement greatly on initial activation, this has not progressed and in fact may have act ually regressed. 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 He has undergone fairly aggressive physical therapy for t his, he still feels lightheaded and has issues with bending over. I have asked him to continue his vestibular exercises at home as prescribed by his therapist. I am going to have a long discussion with Martha regarding what to do about h is implant and why we believe it may have stalled, I will need a CAT scan of his temporal bones to look at at some point in time. I will have him return in [facility] 4-6 months or sooner if needed. In the presence of Yung Moreno MD, I have taken down these notes, Yue Becerril Scribe. 11/29/2018 2:07 PM AGE MANAGER documented in this encounter Plan of Treatment Not on filedocumented as of this encounter Visit Diagnoses Diagnosis Inactive Meniere's disease of both ears - Primary documented in this encounter
--- OUTSIDE RECORDS SUMMARY | 2019-05-25 01:01 | XMS REPORT | Encounter Summary ---
Author Author [facility] Organization [facility] Address Unknown Phone Unavailable Care Team Providers Care Blood Coordinator Name Role Phone Michael Velasquez MD Unavailable Lesley Butcher MD PCP Reason for Visit * Reason Comments Appointment Cochlear Implant Encounter Details Care Team Description Date Type Department Mirella Kent AUD Appointment (Cochlear Implant) 01/02/2019 Telephone [facility] [address] [place] [address] Social History Date Tobacco Use [...]
--- OUTSIDE RECORDS SUMMARY | 2019-05-25 01:07 | XMS REPORT | CCD ---
Author Author [facility] Organization [facility] Address [address] [place] [address] Phone Care Team Providers Care Screen Door Maker Name Role Phone PP Unavailable CCM Unavailable Summary Purpose Interface Exchange Insurance Providers Payer name Policy type / Coverage type Covered republican ID Effective Begin Date Effective End Date WPS Medicare Part B Medicare Part B [id number] 2018 Unknown [facility] Medicare Part B [id number] 2018 Unknown Family history Father Diagnosis Age At Onset Hypertension Unknown Coronary Artery Disease Unknown Sister Diagnosis Age At Onset Heart disease Unknown Mother Diagnosis Age At Onset Coronary Artery Disease Unknown Hypertension Unknown Social History Social History Element Codes Description Effective Dates Marital status Unknown 02/19/2015 Number of children Unknown 2 02/19/2015 Employment Unknown Retired 02/19/[address]: 798983212 Has never smoked or chewed tobacco 02/19/2015 Alcohol history Unknown occasionally drinks alcohol 02/19/2015 Allergies, Adverse Reactions, Alerts Substance Reaction Codes Entered Date Inactivated Date Status bactrim RxNorm: 980196 12/19/2015 No Inactive Date Active ciprofloxacin RxNorm: 74584 02/18/2015 No Inactive Date Active IV DYE, IODINE CONTAINING Unknown 03/09/2019 No Inactive Date Active Past Medical History Illness Codes Condition Status Onset Date Resolved Date Dysuria ICD-9: 788.1 ICD-10: R30.0 Active 05/23/2019 Unknown Epistaxis ICD-9: 784.7 ICD-10: R04.0 Active 05/21/2019 Unknown Essential (primary) hypertension ICD-9: 401.1 ICD-10: I10 Active 06/27/2016 Unknown Major depressive disorder, recurrent, 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 ICD-10: F33.0 Active 06/27/2016 Unknown Mixed hyperlipidemia ICD- 9: 272.2 ICD-10: E78.2 Active 02/16/2016 Unknown Muscle weakness (generalized) ICD-9: 728.87 ICD-10: M62.81 Active 11/27/2018 Unknown Abdominal aortic aneurysm, without rupture ICD-9: 441.4 ICD-10: I71.4 Active 03/05/2019 Unknown Unsteadiness on feet ICD- 9: 781.2 ICD-10: R26.81 Active 03/05/2019 Unknown Frequency of micturition ICD-9: 788.41 ICD-10: R35.0 Active 02/12/2019 Unknown Paroxysmal atrial fibrillation ICD-9: 427.31 ICD-10: I48.0 Active 02/12/2019 Unknown Dizziness and giddiness ICD-9: 780.4 ICD-10: R42 Active 07/26/2018 Unknown Dyspnea, unspecified ICD- 9: 786.09 ICD-10: R06.00 Active 11/26/2015 Unknown Vertigo of central origin, right ear [...] 9: 786.05 ICD-10: R06.02 Active 11/27/2018 Unknown Essential [...] ICD-9: 280.1 ICD-10: D50.8 Active 04/26/2016 Unknown Sensorineural hearing loss, bilateral ICD-9: 389.11 [...] Problems Condition Codes Effective Dates Condition Status Dysuria ICD-9: 788.1 ICD-10: R30.0 05/23/2019 Active Epistaxis ICD-9: 784.7 ICD-10: R04.0 05/21/2019 Active Essential (primary) hypertension ICD-9: 401.1 ICD-10: I10 06/27/2016 Active Major depressive disorder, recurrent, 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 ICD-10: F33.0 06/27/2016 Active Mixed hyperlipidemia ICD- 9: 272.2 ICD-10: E78.2 02/16/2016 Active Muscle weakness (generalized) ICD-9: 728.87 ICD-10: M62.81 11/27/2018 Active Abdominal aortic aneurysm, without rupture ICD-9: 441.4 ICD-10: I71.4 03/05/2019 Active Unsteadiness on feet ICD- 9: 781.2 ICD-10: R26.81 03/05/2019 Active Frequency of micturition ICD-9: 788.41 ICD-10: R35.0 02/12/2019 Active Paroxysmal atrial fibrillation ICD-9: 427.31 ICD-10: I48.0 02/12/2019 Active Dizziness and giddiness ICD-9: 780.4 ICD-10: R42 07/26/2018 Active Dyspnea, unspecified ICD- 9: 786.09 ICD-10: R06.00 11/26/2015 Active Vertigo of central origin, right ear [...] ICD- 9: 786.05 ICD-10: R06.02 11/27/2018 Active Essential (primary) [...] anemias ICD-9: 280.1 ICD-10: D50.8 04/26/2016 Active Sensorineural hearing loss, bilateral ICD-9: 389.11 [...] Start Date Stop Date Status Fill Instructions Keflex 500 mg capsule RxNorm: 147173 1 Capsule(s) PO TID 05/23/2019 05/29/2019 Active Keflex 500 mg capsule RxNorm: 829651 1 Capsule(s) PO TID 05/23/2019 05/22/2019 Inactive atorvastatin 80 mg tablet RxNorm: 927544 1 Tablet(s) PO daily 04/23/2019 No Stop Date Active Vitamin D3 1,000 unit capsule RxNorm: 528170 1 Capsule(s) PO daily 04/23/2019 No Stop Date Active nitroglycerin 0.4 mg sublingual tablet RxNorm: 507479 1 Tablet(s) SL x3 in 15 min as needed 03/05/2019 No Stop Date Active losartan 50 mg tablet RxNorm: 218006 1 Tablet(s) PO daily 02/16/2019 02/10/2020 Active Requip 0.25 mg tablet RxNorm: 669666 1 Tablet(s) PO QHS 01/29/2019 01/23/2020 Active Flomax 0.4 mg capsule RxNorm: 684497 TAKE 1 CAPSULE BY MOUTH ONCE DAILY IN THE EVENING 01/25/2019 No Stop Date Active Requip 0.25 mg tablet RxNorm: 122532 1 Tablet(s) PO QHS 2019 01/28/2019 Inactive pantoprazole 40 mg tablet,delayed release RxNorm: 386105 TAKE ONE TABLET BY MOUTH ONCE DAILY AT BEDTIME 11/27/2018 No Stop Date Active atorvastatin 40 mg tablet RxNorm: 132468 1 Tablet(s) PO daily 09/26/2018 10/25/2018 Inactive dexamethasone 0.5 mg tablet RxNorm: 150206 TAKE 1 TABLET BY MOUTH ONCE DAILY 08/29/2018 04/22/2019 Inactive clonazepam 1 mg tablet RxNorm: 723577 1/2 Tablet(s) PO QHS 08/24/2018 04/22/2019 Inactive allopurinol 100 mg tablet RxNorm: 570373 TAKE ONE TABLET BY MOUTH ONCE DAILY 08/03/2018 No Stop Date Active citalopram 40 mg tablet RxNorm: 687415 TAKE ONE TABLET BY MOUTH ONCE DAILY 06/13/2018 No Stop Date Active Kenalog 40 mg/mL suspension for injection RxNorm: 0310261 Milliliter(s) Inj 06/12/2018 06/12/2018 Inactive clonazepam 1 mg tablet RxNorm: 353903 1 Tablet(s) PO QHS 06/12/2018 08/23/2018 Inactive clonazepam 1 mg tablet RxNorm: 142399 1/2 Tablet(s) TAKE ONE TABLET BY MOUTH ONCE DAILY AT BEDTIME AND ONE TABLET THREE TIMES DAILY NEEDED 05/24/2018 06/11/2018 Inactive citalopram 40 mg tablet RxNorm: 526232 1/2 Tablet(s) TAKE ONE TABLET BY MOUTH ONCE DAILY 05/24/2018 09/25/2018 Inactive losartan 50 mg tablet RxNorm: 366148 1/2 Tablet(s) PO daily 05/24/2018 02/15/2019 Inactive spironolactone 25 mg tablet RxNorm: 588883 TAKE ONE TABLET BY MOUTH ONCE DAILY 05/22/2018 No Stop Date Active dexamethasone 0.5 mg tablet RxNorm: 308461 TAKE ONE TABLET BY MOUTH ONCE DAILY 02/21/2018 08/28/2018 Inactive Flomax 0.4 mg capsule RxNorm: 808779 TAKE ONE CAPSULE BY MOUTH ONCE DAILY IN THE EVENING 12/19/2017 01/24/2019 Inactive Tamiflu 75 mg capsule RxNorm: 142013 1 Capsule(s) PO BID 12/08/2017 12/12/2017 Inactive clonazepam 1 mg tablet RxNorm: 908051 Tablet(s) TAKE ONE TABLET BY MOUTH ONCE DAILY AT BEDTIME AND ONE TABLET THREE TIMES DAILY NEEDED 11/28/2017 01/26/2018 Inactive pantoprazole 40 mg tablet,delayed release RxNorm: 562183 TAKE ONE TABLET BY MOUTH ONCE DAILY AT BEDTIME 11/07/2017 11/26/2018 Inactive allopurinol 100 mg tablet RxNorm: 659856 TAKE ONE TABLET BY MOUTH ONCE DAILY 10/03/2017 08/02/2018 Inactive pantoprazole 40 mg tablet,delayed release RxNorm: 153302 1 Tablet(s) PO BID 09/01/2017 05/28/2018 Inactive Vitamin B-6 100 mg tablet RxNorm: 878429 1 Tablet(s) PO daily 09/01/2017 06/11/2018 Inactive dutasteride 0.5 mg capsule RxNorm: 016276 1 Capsule(s) PO QPM 09/01/2017 06/11/2018 Inactive spironolactone 25 mg tablet RxNorm: 357255 TAKE ONE TABLET BY MOUTH ONCE DAILY 08/15/2017 05/21/2018 Inactive citalopram 40 mg tablet RxNorm: 328170 TAKE ONE TABLET BY MOUTH ONCE DAILY 08/08/2017 05/04/2018 Inactive dexamethasone 0.5 mg tablet RxNorm: 497281 TAKE ONE TABLET BY MOUTH ONCE DAILY 08/08/2017 11/05/2017 Inactive clonazepam 1 mg tablet RxNorm: 475345 1 Tablet(s) PO QHS AND 1 TAB PO TID PRN 05/12/2017 05/13/2017 Inactive clonazepam 1 mg tablet RxNorm: 248781 TAKE ONE TABLET BY MOUTH ONCE DAILY AT BEDTIME AND ONE THREE TIMES DAILY NEEDED 05/12/2017 04/22/2019 Inactive oxybutynin chloride ER 10 mg tablet,extended release 24 hr RxNorm: 964599 1 Tablet(s) PO daily 04/29/2017 08/02/2017 Inactive dexamethasone 0.5 mg tablet RxNorm: 689037 TAKE ONE TABLET BY MOUTH ONCE DAILY 02/14/2017 04/14/2017 Inactive Flomax 0.4 mg capsule RxNorm: 900175 TAKE ONE CAPSULE BY MOUTH ONCE DAILY IN THE EVENING 02/14/2017 11/10/2017 Inactive pantoprazole 40 mg tablet,delayed release RxNorm: 935868 TAKE ONE TABLET BY MOUTH ONCE DAILY AT BEDTIME 02/14/2017 08/31/2017 Inactive oxybutynin chloride ER 10 mg tablet,extended release 24 hr RxNorm: 784373 1 Tablet(s) PO daily 01/25/2017 04/24/2017 Inactive dexamethasone 0.5 mg tablet RxNorm: 007330 TAKE ONE TABLET BY MOUTH ONCE DAILY 11/10/2016 12/09/2016 Inactive oxybutynin chloride ER 5 mg tablet,extended release 24 hr RxNorm: 019618 1 Tablet(s) PO daily 10/28/2016 10/27/2016 Inactive oxybutynin chloride ER 5 mg tablet,extended release 24 hr RxNorm: 086013 1 Tablet(s) PO daily 10/28/2016 01/24/2017 Inactive Detrol LA 2 mg capsule,extended release RxNorm: 899490 1 Capsule(s) PO QPM 10/26/2016 10/27/2016 Inactive clonazepam 1 mg tablet RxNorm: 645918 1 Tablet(s) PO QHS AND 1 TAB PO TID PRN 10/20/2016 04/17/2017 Inactive dexamethasone 0.5 mg tablet RxNorm: 745881 TAKE ONE TABLET BY MOUTH ONCE DAILY 10/06/2016 11/04/2016 Inactive allopurinol 100 mg tablet RxNorm: 541681 1 Tablet(s) PO daily 09/30/2016 09/24/2017 Inactive Vesicare 5 mg tablet RxNorm: 823180 1 Tablet(s) PO QPM 09/27/2016 12/12/2016 Inactive spironolactone 25 mg tablet RxNorm: 581100 1 Tablet(s) PO daily 08/06/2016 07/31/2017 Inactive citalopram 40 mg tablet RxNorm: 817635 1 Tablet(s) PO daily 06/28/2016 06/22/2017 Inactive iron ER 159 mg (45 mg iron) tablet,extended release RxNorm: 433591 1 Tablet(s) PO daily 04/27/2016 08/31/2017 Inactive dexamethasone 0.5 mg tablet RxNorm: 744709 1/2 Tablet(s) PO daily 04/27/2016 02/20/2018 Inactive allopurinol 100 mg tablet RxNorm: 719978 1 Tablet(s) PO daily 04/27/2016 09/29/2016 Inactive Plavix 75 mg tablet RxNorm: 787248 1 Tablet(s) PO daily 04/27/2016 02/11/2019 Inactive clonazepam 1 mg tablet RxNorm: 852608 1 Tablet(s) PO QHS and 1 tab po TID prn 04/14/2016 10/07/2016 Inactive allopurinol 100 mg tablet RxNorm: 906358 1 Tablet(s) PO daily 02/17/2016 04/26/2016 Inactive citalopram 20 mg tablet RxNorm: 148307 1 Tablet(s) PO daily 01/20/2016 06/27/2016 Inactive Flomax 0.4 mg capsule RxNorm: 386395 1 Capsule(s) PO QPM 01/20/2016 01/13/2017 Inactive [SAVINGS FOR NON-COVERED DRUGS -- BIN:[id number], PCN: ASPROD1, Group: XXXXX, ID# [id number], Questions: . THIS IS NOT INSURANCE.] pantoprazole 40 mg tablet,delayed release RxNorm: 910921 1 Tablet(s) PO QHS 01/20/2016 01/13/2017 Inactive Colcrys 0.6 mg tablet RxNorm: 789480 1 Tablet(s) PO daily 01/06/2016 03/05/2016 Inactive take daily x 7 days then daily as needed for gout flair colchicine 0.6 mg tablet RxNorm: 833722 1 Tablet(s) PO BID 12/30/2015 01/01/2016 Inactive doxycycline hyclate 100 mg tablet RxNorm: 990053 1 Tablet(s) PO BID 12/19/2015 12/28/2015 Inactive doxycycline hyclate 100 mg tablet RxNorm: 073048 1 Tablet(s) PO BID 12/19/2015 12/18/2015 Inactive allopurinol 100 mg tablet RxNorm: 733931 1 Tablet(s) PO daily 12/16/2015 02/16/2016 Inactive colchicine 0.6 mg tablet RxNorm: 303034 Tablet(s) PO 1.2 mg PO in the morning and 0.6 mg at night for 2 days. 12/16/2015 12/29/2015 Inactive allopurinol 100 mg tablet RxNorm: 807499 1 Tablet(s) PO daily 12/16/2015 12/15/2015 Inactive Protonix 40 mg tablet,delayed release RxNorm: 085253 1 Tablet(s) PO daily 12/16/2015 01/14/2016 Inactive Bactrim DS 800 mg-160 mg tablet RxNorm: 798314 1 Tablet(s) PO BID 12/16/2015 12/18/2015 Inactive colchicine 0.6 mg tablet RxNorm: 823598 Tablet(s) PO 1.2 mg for the first dose and 0.6 mg an hour after 12/15/2015 12/15/2015 Inactive dexamethasone 0.5 mg tablet RxNorm: 588652 1 Tablet(s) PO 12/12/2015 02/09/2016 Inactive Plavix 75 mg tablet RxNorm: 845276 1 Tablet(s) PO every other day 12/12/2015 04/09/2016 Inactive nitroglycerin 0.4 mg sublingual tablet RxNorm: 435058 1 Tablet(s) SL x3 in 15 min as needed 12/12/2015 04/26/2016 Inactive [place] 5 mg-325 mg tablet RxNorm: 894976 1-2 Tablet(s) PO Q6 as needed 12/11/2015 09/26/2016 Inactive clonazepam 1 mg tablet RxNorm: 472408 1 Tablet(s) PO QHS and 1 tab po TID prn 12/11/2015 04/22/2019 Inactive clonazepam 1 mg tablet RxNorm: 690093 1 Tablet(s) PO QHS and 1 tab po TID prn 12/04/2015 12/10/2015 Inactive Flomax 0.4 mg capsule RxNorm: 695290 1 Capsule(s) PO QPM 09/22/2015 01/19/2016 Inactive [SAVINGS FOR NON-COVERED DRUGS -- BIN:[id number], PCN: ASPROD1, Group: XXXXX, ID# XXXXXXX, Questions: . THIS IS NOT INSURANCE.] Flomax 0.4 mg capsule RxNorm: 731069 1 Capsule(s) PO QPM 09/16/2015 09/21/2015 Inactive [SAVINGS FOR NON-COVERED DRUGS -- BIN:338249, PCN: ASPROD1, Group: XXXXX, ID# XXXXXXX, Questions: . THIS IS NOT INSURANCE.] clonazepam 1 mg tablet RxNorm: 602601 1 Tablet(s) PO QHS 08/29/2015 12/03/2015 Inactive coenzyme Q10 10 mg tablet RxNorm: 576895 1 Tablet(s) PO daily 07/30/2015 01/05/2016 Inactive spironolactone 25 mg tablet RxNorm: 903199 1 Tablet(s) PO daily 07/28/2015 07/21/2016 Inactive spironolactone 25 mg tablet RxNorm: 504909 1 Tablet(s) PO daily 07/22/2015 07/27/2015 Inactive clonazepam 1 mg tablet RxNorm: 407378 1 Tablet(s) PO QHS 05/23/2015 08/28/2015 Inactive losartan 25 mg tablet RxNorm: 371890 1 Tablet(s) PO daily 02/19/2015 03/20/2015 Inactive Flonase Allergy Relief 50 mcg/actuation nasal spray,suspension RxNorm: 1 [place] NASAL BID 02/19/2015 04/26/2016 Inactive [SAVINGS FOR NON-COVERED DRUGS -- BIN:144463, PCN: ASPROD1, Group: XXXXX, ID# [id number], Questions: . THIS IS NOT INSURANCE.] Flomax 0.4 mg capsule RxNorm: 532523 1 Capsule(s) PO QPM 02/19/2015 09/15/2015 Inactive [SAVINGS FOR NON-COVERED DRUGS -- BIN:688735, PCN: ASPROD1, Group: XXXXX, ID# XXXXXXX, Questions: . THIS IS NOT INSURANCE.] citalopram 20 mg tablet RxNorm: 687366 1 Tablet(s) PO daily 02/19/2015 03/20/2015 Inactive atenolol 25 mg tablet RxNorm: 481321 1 Tablet(s) PO daily 02/19/2015 03/20/2015 Inactive Lipitor 20 mg tablet RxNorm: 351054 1 Tablet(s) PO daily 02/19/2015 03/20/2015 Inactive Flonase Allergy Relief 50 mcg/actuation nasal spray,suspension RxNorm: 0159588 1 [place] NASAL QHS No Start Date Active amiodarone 200 mg tablet RxNorm: 020764 1 Tablet(s) PO TID No Start Date Active Vitamin D3 5,000 unit tablet RxNorm: 959185 1 Tablet(s) PO daily No Start Date Active warfarin 3 mg tablet RxNorm: 901374 1 Tablet(s) PO daily No Start Date Active managed by electronics maintenance technician Dr Deleon Rachel 180 mg tablet RxNorm: 756931 1 Tablet(s) PO daily No Start Date Active Centrum Complete oral RxNorm: 67270 oral No Start Date Active aspirin 325 mg tablet RxNorm: 766053 1 Tablet(s) PO daily No Start Date Active glucosamine HCl 1,500 mg tablet RxNorm: 014734 1 Tablet(s) with 1200 mg chrondroitin PO daily No Start Date 08/01/2018 Inactive vitamin B complex oral RxNorm: 18892 oral No Start Date 04/22/2019 Inactive Claritin-D 24 Hour oral RxNorm: 914550 oral No Start Date 01/07/2019 Inactive ranitidine 150 mg tablet RxNorm: 735697 1 Tablet(s) PO TID No Start Date 12/11/2015 Inactive Rachel oral RxNorm: 492092 oral No Start Date 04/23/2019 Inactive Lipitor oral RxNorm: 43211 oral No Start Date 04/23/2019 Inactive [place] 5 mg-325 mg tablet RxNorm: 551672 1-2 Tablet(s) PO Q6 as needed No Start Date 12/10/2015 Inactive krill oil oral RxNorm: 03765 oral No Start Date 08/07/2018 Inactive Vitamin B-6 100 mg tablet RxNorm: 909285 1 Tablet(s) PO TID No Start Date 08/31/2017 Inactive spironolactone 25 mg tablet RxNorm: 403672 1 Tablet(s) PO daily No Start Date 07/21/2015 Inactive Vitamin D3 oral RxNorm: 2418 oral No Start Date 02/17/2016 Inactive clonazepam 1 mg tablet RxNorm: 555808 1 Tablet(s) PO daily No Start Date 05/22/2015 Inactive Glucosamine oral RxNorm: 4845 oral No Start Date 04/26/2016 Inactive cetirizine 10 mg tablet RxNorm: 4348540 1 Tablet(s) PO daily No Start Date 01/07/2019 Inactive losartan 50 mg tablet RxNorm: 302277 1 Tablet(s) PO daily No Start Date 05/23/2018 Inactive Plavix 75 mg tablet RxNorm: 403886 1 Tablet(s) PO every other day No Start Date 12/11/2015 Inactive Osteo Bi-Flex oral RxNorm: 4986525 oral No Start Date 09/01/2017 Inactive iron ER 159 mg (45 mg iron) tablet,extended release RxNorm: 922079 1 Tablet(s) PO BID No Start Date 04/26/2016 Inactive amlodipine 5 mg tablet RxNorm: 953251 1 Tablet(s) PO daily No Start Date 01/05/2016 Inactive aspirin 81 mg tablet,delayed release RxNorm: 720107 1 Tablet(s) PO daily No Start Date 05/09/2018 Inactive aspirin 81 mg capsule,delayed release RxNorm: 791674 1 Capsule(s) PO daily No Start Date 04/22/2019 Inactive dexamethasone 0.5 mg tablet RxNorm: 618590 1 Tablet(s) PO No Start Date 12/11/2015 Inactive Vitamin B-12 1,000 mcg tablet RxNorm: 875718 6 Tablet(s) PO every other day No Start Date 06/11/2018 Inactive Aleve 220 mg tablet RxNorm: 959603 Tablet(s) PO as needed No Start Date 04/22/2019 Inactive Vitamin D3 1,000 unit capsule RxNorm: 711580 2 Capsule(s) PO daily No Start Date 04/22/2019 Inactive colchicine 0.6 mg tablet RxNorm: 456400 Tablet(s) PO 1.2 mg for the first dose and 0.6 mg an hour after No Start Date 12/14/2015 Inactive nitroglycerin 0.4 mg sublingual tablet RxNorm: 887955 1 Tablet(s) SL x3 in 15 min as needed No Start Date 12/11/2015 Inactive Fish Oil 1,000 mg capsule RxNorm: 1 Capsule(s) PO daily No Start Date 04/26/2016 Inactive Ecotrin Low Strength 81 mg tablet,enteric coated RxNorm: 3683641 1 Tablet(s) PO daily No Start Date 09/27/2016 Inactive Carafate 1 gram tablet RxNorm: 141015 1 Tablet(s) PO every other day No Start Date 04/22/2019 Inactive Medication Administered Medication Codes Instructions Start Date Status Kenalog 40 mg/mL suspension for injection RxNorm: 9387059 Milliliter 06/12/2018 No longer Active Immunizations Vaccine Codes Date Status Influenza CVX: 141 07/05/2018 completed Influenza CVX: 141 08/01/2017 completed Pneumococcal CVX: 33 08/01/2017 completed Influenza CVX: 141 06/28/2016 completed Tetanus, Diptheria, Pertussis CVX: 113 06/28/2016 completed Tetanus/Diptheria CVX: 113 06/28/2016 completed Pneumococcal Unknown 08/04/2015 completed Influenza CVX: 141 04/16/2014 completed Pneumococcal CVX: 33 05/15/2008 completed Assessments Condition Codes Effective Dates Dysuria ICD-10: R30.0 ICD-9: 788.1 05/23/2019 Epistaxis ICD-10: R04.0 ICD-9: 784.7 05/21/2019 Mixed hyperlipidemia ICD-10: E78.2 ICD-9: 272.2 04/23/2019 Essential (primary) hypertension ICD-10: I10 ICD-9: 401.1 04/23/2019 Muscle weakness (generalized) ICD-10: M62.81 ICD-9: 728.87 04/23/2019 Major depressive disorder, recurrent, mild ICD-10: F33.0 ICD-9: 296.31 04/23/2019 Unsteadiness on feet ICD-10: R26.81 ICD-9: 781.2 [...] of breath ICD-10: R06.02 ICD-9: 786.05 12/13/2018 Essential (primary) hypertension ICD-10: I10 ICD-9: 401.9 [...] 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 ICD-9: 280.1 05/10/2018 Sensorineural hearing loss, bilateral ICD-10: H90.3 ICD-9: 389.11 03/27/2018 Fever, unspecified ICD-10: R50.9 ICD-9: 780.60 12/08/2017 [...] Visit Reason For Visit Effective Dates Notes mucosal bleeding 05/21/2019 Hospital Follow Up 04/23/2019 fatigue 03/05/2019 Hospital Follow Up 02/12/2019 fatigue [...] 30.4 pg 10/20/2018 Cbc With Differential Ord2 [place]% 5.7 % 10/20/2018 Cbc With Differential Ord2 [...] 1.69 K/ul 10/20/2018 Cbc With Differential Ord2 [place] ABS# 0.6 K/ul 10/20/2018 Cbc With Differential Ord2 Eos ABS# 0.0 K/ul 10/20/2018 Cbc With Differential Ord2 Baso ABS# 0.0 K/ul 10/20/2018 Comp Metabolic Uvz898 NA 140 mEq/L 10/20/2018 Comp Metabolic Xtc781 K 4.0 mEq/L 10/20/2018 Comp Metabolic Dhq979 CL 104 mEq/L 10/20/2018 Comp Metabolic Hzo779 CO2 28.0 mEq/L 10/20/2018 Comp Metabolic Jgk508 ANION GAP 12 10/20/2018 Comp Metabolic Rxu307 GLUCOSE 113 mg/dL 10/20/2018 Comp Metabolic Nnw860 Creat 1.0 mg/dL 10/20/2018 Comp Metabolic Pwi703 eGFR 75 ml/min/1.73m2 10/20/2018 Comp Metabolic Ojv812 BUN 18 mg/dL 10/20/2018 Comp Metabolic Inf263 B/C Ratio 17.8 Ratio 10/20/2018 Comp Metabolic Ihf990 CALCIUM 9.8 mg/dL 10/20/2018 Comp Metabolic Hcz240 ALK PHOS 70 U/L 10/20/2018 Comp Metabolic Glu846 AST(SGOT) 15 U/L 10/20/2018 Comp Metabolic Ybd186 ALT(SGPT) 18 U/L 10/20/2018 Comp Metabolic Amp631 BILI T 1.1 mg/dL 10/20/2018 Comp Metabolic Bpr027 ALBUMIN 4.4 g/dL 10/20/2018 Comp Metabolic Xjn390 TPRO 6.9 g/dL 10/20/2018 Comp Metabolic Xby518 GLOB 2.5 g/dL 10/20/2018 Comp Metabolic Hyk215 A/G Ratio 1.7 Ratio 10/20/2018 Comp Metabolic Ouf483 Osmo 282 mOsmo 10/20/2018 Urinalysis Ord28 U-Color [...] 29.0 pg 07/14/2018 Cbc With Differential Ord2 [place]% 7.5 % 07/14/2018 Cbc With Differential Ord2 [...] 1.92 K/ul 07/14/2018 Cbc With Differential Ord2 [place] ABS# 0.4 K/ul 07/14/2018 Cbc With Differential Ord2 Eos ABS# 0.2 K/ul 07/14/2018 Cbc With Differential Ord2 Baso ABS# 0.0 K/ul 07/14/2018 Renal Zlj378 NA 140 mEq/L 07/14/2018 Renal Dll055 K 4.2 mEq/L 07/14/2018 Renal Jbe218 CL 103 mEq/L 07/14/2018 Renal Fwu772 CO2 29.0 mEq/L 07/14/2018 Renal Fyd970 ANION GAP 12 07/14/2018 Renal Jju180 Osmo 280 mOsmo 07/14/2018 Renal Eau529 GLUCOSE 95 mg/dL 07/14/2018 Renal Twy368 BUN 15 mg/dL 07/14/2018 Renal Mvs883 Creat 1.2 mg/dL 07/14/2018 Renal Fep200 eGFR 64 ml/min/1.73m2 07/14/2018 Renal Xsl495 B/C Ratio 12.8 Ratio 07/14/2018 Renal Owt685 CALCIUM 9.6 mg/dL 07/14/2018 Renal Xei903 PHOS 3.2 mg/dL 07/14/2018 Renal Ufu470 ALBUMIN 4.4 g/dL 07/14/2018 Magnesium Ord90 Mag [...] 29.7 pg 06/08/2018 Cbc With Differential Ord2 [place]% 8.7 % 06/08/2018 Cbc With Differential Ord2 [...] 2.14 K/ul 06/08/2018 Cbc With Differential Ord2 [place] ABS# 0.5 K/ul 06/08/2018 Cbc With Differential Ord2 Eos ABS# 0.2 K/ul 06/08/2018 Cbc With Differential Ord2 Baso ABS# 0.0 K/ul 06/08/2018 Comp Metabolic Kjx127 NA 139 mEq/L 06/08/2018 Comp Metabolic Fxt175 K 4.6 mEq/L 06/08/2018 Comp Metabolic Qgt594 CL 105 mEq/L 06/08/2018 Comp Metabolic Nzm557 CO2 26.0 mEq/L 06/08/2018 Comp Metabolic Gnq579 ANION GAP 13 06/08/2018 Comp Metabolic Olh908 GLUCOSE 95 mg/dL 06/08/2018 Comp Metabolic Isu912 Creat 1.2 mg/dL 06/08/2018 Comp Metabolic Oxx846 eGFR 59 ml/min/1.73m2 06/08/2018 Comp Metabolic Gob519 BUN 12 mg/dL 06/08/2018 Comp Metabolic Gjo735 B/C Ratio 9.7 Ratio 06/08/2018 Comp Metabolic Hqk466 CALCIUM 9.9 mg/dL 06/08/2018 Comp Metabolic Ihf450 ALK PHOS 70 U/L 06/08/2018 Comp Metabolic Exu196 AST(SGOT) 21 U/L 06/08/2018 Comp Metabolic Ube157 ALT(SGPT) 20 U/L 06/08/2018 Comp Metabolic Luh970 BILI T 1.0 mg/dL 06/08/2018 Comp Metabolic Kdq370 ALBUMIN 4.5 g/dL 06/08/2018 Comp Metabolic Gzy592 TPRO 7.2 g/dL 06/08/2018 Comp Metabolic Trb117 GLOB 2.8 g/dL 06/08/2018 Comp Metabolic Jdu817 A/G Ratio 1.6 Ratio 06/08/2018 Comp Metabolic Lco882 Osmo 277 mOsmo 06/08/2018 Cbc With Differential [...] 30.6 pg 05/10/2018 Cbc With Differential Ord2 [place]% 6.5 % 05/10/2018 Cbc With Differential Ord2 [...] 1.94 K/ul 05/10/2018 Cbc With Differential Ord2 [place] ABS# 0.4 K/ul 05/10/2018 Cbc With Differential [...] Ord30 C/HDL 4.2 Ratio 01/26/2018 Comp Metabolic Jor078 NA 138 mEq/L 01/26/2018 Comp Metabolic Xwj290 K 4.2 mEq/L 01/26/2018 Comp Metabolic Hqe956 CL 105 mEq/L 01/26/2018 Comp Metabolic Rvk104 CO2 23.0 mEq/L 01/26/2018 Comp Metabolic Kez729 ANION GAP 14 01/26/2018 Comp Metabolic Vlx766 GLUCOSE 89 mg/dL 01/26/2018 Comp Metabolic Fsg208 Creat 1.1 mg/dL 01/26/2018 Comp Metabolic Xcr448 eGFR 70 ml/min/1.73m2 01/26/2018 Comp Metabolic Jaq958 BUN 18 mg/dL 01/26/2018 Comp Metabolic Foi925 B/C Ratio 16.8 Ratio 01/26/2018 Comp Metabolic Yml777 CALCIUM 9.2 mg/dL 01/26/2018 Comp Metabolic Ejn648 ALK PHOS 67 U/L 01/26/2018 Comp Metabolic Sad174 AST(SGOT) 31 U/L 01/26/2018 Comp Metabolic Zjq184 ALT(SGPT) 23 U/L 01/26/2018 Comp Metabolic Xqi288 BILI T 1.7 mg/dL 01/26/2018 Comp Metabolic Cta658 ALBUMIN 3.9 g/dL 01/26/2018 Comp Metabolic Yfb114 TPRO 6.7 g/dL 01/26/2018 Comp Metabolic Qxj975 GLOB 2.8 g/dL 01/26/2018 Comp Metabolic Kha047 A/G Ratio 1.4 Ratio 01/26/2018 Comp Metabolic Sdn098 Osmo 277 mOsmo 01/26/2018 Cbc With Differential [...] 30.7 pg 01/26/2018 Cbc With Differential Ord2 [place]% 7.1 % 01/26/2018 Cbc With Differential Ord2 [...] 2.40 K/ul 01/26/2018 Cbc With Differential Ord2 [place] ABS# 0.5 K/ul 01/26/2018 Cbc With Differential Ord2 Eos ABS# 0.2 K/ul 01/26/2018 Cbc With Differential Ord2 Baso ABS# 0.0 K/ul 01/26/2018 Tsh Ord6 TSH (3rd IS) 1.81 uIU/mL 01/26/2018 Testosterone Iun490 Testo 370.3 ng/dL 01/26/2018 C A/B FLU [id number] Influenza A Scr Negative 12/08/2017 C A/B FLU [id number] Influenza B Scr Negative 12/08/2017 C A/B FLU [id number] Influenza Intrp B AG:PRID:PT:NOSE:NOM:IF See Footnote 12/08/2017 [...] 30.8 pg 04/11/2017 Cbc With Differential Ord2 [place]% 8.1 % 04/11/2017 Cbc With Differential Ord2 [...] 1.91 K/ul 04/11/2017 Cbc With Differential Ord2 [place] ABS# 0.5 K/ul 04/11/2017 Cbc With Differential Ord2 Eos ABS# 0.2 K/ul 04/11/2017 Cbc With Differential Ord2 Baso ABS# 0.0 K/ul 04/11/2017 Comp Metabolic Rax397 NA 140 mEq/L 04/11/2017 Comp Metabolic Nsq088 K 4.1 mEq/L 04/11/2017 Comp Metabolic Msa759 CL 105 mEq/L 04/11/2017 Comp Metabolic Hyq634 CO2 26.0 mEq/L 04/11/2017 Comp Metabolic Gmc433 ANION GAP 13 04/11/2017 Comp Metabolic Yuq573 GLUCOSE 88 mg/dL 04/11/2017 Comp Metabolic Pqa687 Creat 1.1 mg/dL 04/11/2017 Comp Metabolic Mgc774 eGFR 66 ml/min/1.73m2 04/11/2017 Comp Metabolic Tur374 BUN 18 mg/dL 04/11/2017 Comp Metabolic Upu416 B/C Ratio 15.9 Ratio 04/11/2017 Comp Metabolic Uyg627 CALCIUM 9.0 mg/dL 04/11/2017 Comp Metabolic Mfk090 ALK PHOS 72 U/L 04/11/2017 Comp Metabolic Mqj422 AST(SGOT) 22 U/L 04/11/2017 Comp Metabolic Wgf382 ALT(SGPT) 26 U/L 04/11/2017 Comp Metabolic Kas390 BILI T 1.0 mg/dL 04/11/2017 Comp Metabolic Qux041 ALBUMIN 4.0 g/dL 04/11/2017 Comp Metabolic Bxg672 TPRO 6.4 g/dL 04/11/2017 Comp Metabolic Plh187 GLOB 2.4 g/dL 04/11/2017 Comp Metabolic Fsl102 A/G Ratio 1.6 Ratio 04/11/2017 Comp Metabolic Ouu450 Osmo 281 mOsmo 04/11/2017 Vitamin D 25 Oh Iib3561 VITAMIN D, 25 HYDROXY 65.52 ng/mL 05/19/2016 [...] 28.5 pg 05/18/2016 Cbc With Differential Ord2 [place]% 7.2 % 05/18/2016 Cbc With Differential Ord2 [...] 1.80 K/ul 05/18/2016 Cbc With Differential Ord2 [place] ABS# 0.4 K/ul 05/18/2016 Cbc With Differential Ord2 Eos ABS# 0.2 K/ul 05/18/2016 Cbc With Differential Ord2 Baso ABS# 0.0 K/ul 05/18/2016 Magnesium Ord90 Mag 2.0 mg/dL 05/18/2016 Renal Drf792 NA 139 mEq/L 05/18/2016 Renal Irr631 K 4.0 mEq/L 05/18/2016 Renal Qis533 CL 104 mEq/L 05/18/2016 Renal Ckh720 CO2 27.0 mEq/L 05/18/2016 Renal Gdx377 ANION GAP 12 05/18/2016 Renal Rkr155 Osmo 279 mOsmo 05/18/2016 Renal Tyk467 GLUCOSE 91 mg/dL 05/18/2016 Renal Ixa004 BUN 18 mg/dL 05/18/2016 Renal Bak751 Creat 1.3 mg/dL 05/18/2016 Renal Rvk848 eGFR 59 ml/min/1.73m2 05/18/2016 Renal Fjb524 B/C Ratio 14.3 Ratio 05/18/2016 Renal Btn335 CALCIUM 9.3 mg/dL 05/18/2016 Renal Ims510 PHOS 3.2 mg/dL 05/18/2016 Renal Hct303 ALBUMIN 4.2 g/dL 05/18/2016 Random Urine Protein/Creatinine Ratio Rhf9265 U Prot 15.0 mg/dl 05/18/2016 Random Urine Protein/Creatinine Ratio Mvo2114 U CREAT 141.0 mg/dL 05/18/2016 Random Urine Protein/Creatinine Ratio Inv0737 R MTP/Creat Ratio 0.11 05/18/2016 Urinalysis Ord28 [...] 28.5 pg 02/19/2016 Cbc With Differential Ord2 [place]% 9.5 % 02/19/2016 Cbc With Differential Ord2 [...] 1.91 K/ul 02/19/2016 Cbc With Differential Ord2 [place] ABS# 0.5 K/ul 02/19/2016 Cbc With Differential Ord2 Eos ABS# 0.2 K/ul 02/19/2016 Cbc With Differential Ord2 Baso ABS# 0.0 K/ul 02/19/2016 Cbc With Differential Ord2 New Analyzer Notice Please note new ref ranges starting 10-29-2015 due to implemntation of new five part differential hematolgy analyzer. 02/19/2016 Tsh Ord6 hTSH II 2.10 uIU/mL 02/19/2016 Comp Metabolic Rxo026 NA 138 mEq/L 02/19/2016 Comp Metabolic Gpz467 K 3.8 mEq/L 02/19/2016 Comp Metabolic Dgg576 CL 103 mEq/L 02/19/2016 Comp Metabolic Qwc602 CO2 28.0 mEq/L 02/19/2016 Comp Metabolic Oti567 ANION GAP 11 02/19/2016 Comp Metabolic Cdt137 GLUCOSE 94 mg/dL 02/19/2016 Comp Metabolic Rfk761 Creat 1.0 mg/dL 02/19/2016 Comp Metabolic Omp656 eGFR 75 ml/min/1.73m2 02/19/2016 Comp Metabolic Kel819 BUN 18 mg/dL 02/19/2016 Comp Metabolic Dkn105 B/C Ratio 17.6 Ratio 02/19/2016 Comp Metabolic Yta404 CALCIUM 9.6 mg/dL 02/19/2016 Comp Metabolic Kgd392 ALK PHOS 93 U/L 02/19/2016 Comp Metabolic Vek067 AST(SGOT) 23 U/L 02/19/2016 Comp Metabolic Lnt757 ALT(SGPT) 19 U/L 02/19/2016 Comp Metabolic Qjp515 BILI T 0.8 mg/dL 02/19/2016 Comp Metabolic Lzc237 ALBUMIN 4.1 g/dL 02/19/2016 Comp Metabolic Ltf829 TPRO 6.8 g/dL 02/19/2016 Comp Metabolic Bgx121 GLOB 2.7 g/dL 02/19/2016 Comp Metabolic Axu467 A/G Ratio 1.5 Ratio 02/19/2016 Comp Metabolic Evm831 Osmo 277 mOsmo 02/19/2016 Uric Acid Ord77 Uric A 6.0 mg/dL 02/19/2016 Total Psa Ord10 PSA 0.82 ng/mL 02/19/2016 Comp Metabolic Bjh165 NA 140 mEq/L 12/16/2015 Comp Metabolic Ezm780 K 4.0 mEq/L 12/16/2015 Comp Metabolic Pwr995 CL 105 mEq/L 12/16/2015 Comp Metabolic Paw791 CO2 24.0 mEq/L 12/16/2015 Comp Metabolic Bpk824 ANION GAP 15 12/16/2015 Comp Metabolic Agk327 GLUCOSE 85 mg/dL 12/16/2015 Comp Metabolic Otb383 Creat 1.2 mg/dL 12/16/2015 Comp Metabolic Nge648 eGFR 65 ml/min/1.73m2 12/16/2015 Comp Metabolic Mhl293 BUN 14 mg/dL 12/16/2015 Comp Metabolic Ijd629 B/C Ratio 12.1 Ratio 12/16/2015 Comp Metabolic Xhc715 CALCIUM 9.1 mg/dL 12/16/2015 Comp Metabolic Etd559 ALK PHOS 162 U/L 12/16/2015 Comp Metabolic Pvs869 AST(SGOT) 14 U/L 12/16/2015 Comp Metabolic Udy868 ALT(SGPT) 17 U/L 12/16/2015 Comp Metabolic Vxe615 BILI T 1.0 mg/dL 12/16/2015 Comp Metabolic Mem899 ALBUMIN 3.4 g/dL 12/16/2015 Comp Metabolic Pvb313 TPRO 6.2 g/dL 12/16/2015 Comp Metabolic Nkc068 GLOB 2.9 g/dL 12/16/2015 Comp Metabolic Tzs680 A/G Ratio 1.2 Ratio 12/16/2015 Comp Metabolic Lyu250 Osmo 279 mOsmo 12/16/2015 Uric Acid Ord77 [...] 29.9 % 12/16/2015 Cbc With Differential Ord2 [place]% 7.5 % 12/16/2015 Cbc With Differential Ord2 [...] 1.52 K/ul 12/16/2015 Cbc With Differential Ord2 [place] ABS# 0.4 K/ul 12/16/2015 Cbc With Differential [...] C/HDL 4.0 Ratio 07/21/2015 Urine Protein 24Hr Rjz942 U Prot 5.1 mg/dl 05/16/2015 Urine Protein 24Hr Oal599 U Prot24 71.5 mg/24hr 05/16/2015 Total Volume Urine Wjj662 TV/24hr 1400 ml 05/16/2015 Total Psa Ord10 PSA 0.70 ng/mL 05/15/2015 Renal Rin106 NA 135 mEq/L 05/15/2015 Renal Ken827 K 3.9 mEq/L 05/15/2015 Renal Ego582 CL 101 mEq/L 05/15/2015 Renal Ovz657 CO2 27.0 mEq/L 05/15/2015 Renal Qxh883 ANION GAP 11 05/15/2015 Renal Zjg810 Osmo 274 mOsmo 05/15/2015 Renal Cfh109 GLUCOSE 132 mg/dL 05/15/2015 Renal Bhn745 BUN 19 mg/dL 05/15/2015 Renal Ced333 Creat 1.1 mg/dL 05/15/2015 Renal Enb166 eGFR 67 ml/min/1.73m2 05/15/2015 Renal Uyp049 B/C Ratio 17.0 Ratio 05/15/2015 Renal Fik696 CALCIUM 9.6 mg/dL 05/15/2015 Renal Rvr739 PHOS 3.0 mg/dL 05/15/2015 Renal Ixh390 ALBUMIN 4.3 g/dL 05/15/2015 Cbc With Differential [...] Result Effective Dates Constitutional No recent illness 05/21/2019 Constitutional No chills 05/21/2019 Constitutional No diaphoresis 05/21/2019 Constitutional No fever 05/21/2019 Eyes No eye erythema 05/21/2019 Cardiovascular No chest pain/pressure 05/21/2019 Respiratory No cough 05/21/2019 Dermatologic skin lesion 05/21/2019 Neurologic No alteration of consciousness 05/21/2019 Neurologic No mental status change 05/21/2019 Ears/Nose/Throat/Neck nasal allergies 05/21/2019 Ears/Nose/Throat/Neck epistaxis 05/21/2019 Constitutional No recent illness 04/23/2019 Constitutional No night sweats 04/23/2019 Constitutional No chills 04/23/2019 Constitutional No diaphoresis 04/23/2019 Constitutional No fatigue 04/23/2019 Constitutional No fever 04/23/2019 Constitutional No insomnia 04/23/2019 Constitutional malaise 04/23/2019 Eyes No blindness 04/23/2019 Eyes No vision change 04/23/2019 Ears/Nose/Throat/Neck No dizziness 04/23/2019 Ears/Nose/Throat/Neck hearing loss 04/23/2019 Ears/Nose/Throat/Neck No sore throat 04/23/2019 Cardiovascular No chest pain/pressure 04/23/2019 Cardiovascular No edema 04/23/2019 Cardiovascular exercise intolerance 04/23/2019 Cardiovascular fatigue 04/23/2019 Cardiovascular No palpitations 04/23/2019 Cardiovascular No syncope 04/23/2019 Respiratory No chest congestion 04/23/2019 Respiratory No cough 04/23/2019 Gastrointestinal No abdominal pain 04/23/2019 Gastrointestinal No constipation 04/23/2019 Gastrointestinal No diarrhea 04/23/2019 Gastrointestinal No nausea 04/23/2019 Gastrointestinal No vomiting 04/23/2019 Genitourinary/Nephrology No dysuria 04/23/2019 Musculoskeletal No stiffness 04/23/2019 Musculoskeletal No swelling 04/23/2019 Musculoskeletal back pain 04/23/2019 Musculoskeletal muscle weakness 04/23/2019 Musculoskeletal No myalgias 04/23/2019 Dermatologic No rash 04/23/2019 Neurologic No alteration of consciousness 04/23/2019 Neurologic dizziness 04/23/2019 Neurologic memory loss 04/23/2019 Neurologic No mental status change 04/23/2019 Neurologic vertigo 04/23/2019 Neurologic weakness 04/23/2019 Psychiatric anxiety 04/23/2019 Psychiatric depression 04/23/2019 Constitutional No recent illness 03/05/2019 Constitutional No [...] Result Effective Dates Notes Full Exam - Dermatology Constitutional general appearance Overall: well nourished 05/21/2019 None Full Exam - Dermatology Constitutional general appearance Overall: well developed 05/21/2019 None Full Exam - Dermatology Constitutional general appearance Overall: in no acute distress 05/21/2019 None Full Exam - Dermatology Eyes conjunctiva/eyelids Overall: clear conjunctiva bilaterally 05/21/2019 None Full Exam - Dermatology Eyes conjunctiva/eyelids Overall: clear corneas 05/21/2019 None Full Exam - Dermatology Eyes conjunctiva/eyelids Overall: normal eyelids 05/21/2019 None Full Exam - Dermatology Ears/Nose/Throat lips/teeth/gingiva Overall: benign lips 05/21/2019 None Full Exam - Dermatology Ears/Nose/Throat oropharynx Overall: clear oral mucosa 05/21/2019 None Full Exam - Dermatology Respiratory respiratory effort/rhythm Overall: no retractions 05/21/2019 None Full Exam - Dermatology Respiratory respiratory effort/rhythm Overall: normal rate 05/21/2019 None Full Exam - Dermatology Musculoskeletal head and neck Overall: head atraumatic 05/21/2019 None Full Exam - Dermatology Psychiatric orientation Overall: oriented to person, place and time 05/21/2019 None Full Exam - Dermatology Psychiatric mood and affect Overall: normal mood and affect 05/21/2019 None Full Exam - Dermatology Integument insp & palp - head/face Lesion: ulcer 05/21/2019 None Full Exam - Dermatology Integument insp & palp - head/face Location: on the left side of the nose 05/21/2019 None Full Exam - Dermatology Integument insp & palp - head/face Color: erythematous 05/21/2019 None Full Exam - General 1994 Constitutional general appearance Development: well developed 04/23/2019 None Full Exam - General 1994 Constitutional general appearance Development: appears stated age 0704/23/2019 None Full Exam - General 1994 Constitutional general appearance Hygiene/Attention to Grooming: good hygiene 04/23/2019 None Full Exam - General 1994 Eyes conjunctiva/eyelids Overall: conjunctiva clear 04/23/2019 None Full Exam - General 1994 Eyes conjunctiva/eyelids Overall: cornea clear 04/23/2019 None Full Exam - General 1994 Eyes conjunctiva/eyelids Overall: eyelids normal 04/23/2019 None Full Exam - General 1994 Eyes pupils and irises Overall: pupils equal, round, reactive to light and accomodation 04/23/2019 None Full Exam - General 1994 Ears/Nose/Throat external ear Overall: normal appearance 04/23/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 Full Exam - General 1994 Ears/Nose/Throat lips/teeth/gingiva Overall: normal dentition 04/23/2019 None Full Exam - General 1994 Ears/Nose/Throat oral cavity/pharynx/larynx Overall: oral mucosa clear 04/23/2019 None Full Exam - General 1994 Ears/Nose/Throat oral cavity/pharynx/larynx Overall: oropharyngeal mucosa clear 04/23/2019 None Full Exam - General 1994 Ears/Nose/Throat oral cavity/pharynx/larynx Overall: hypopharynx benign 04/23/2019 None Full Exam - General 1994 Ears/Nose/Throat oral cavity/pharynx/larynx Overall: no masses 04/23/2019 None Full Exam - General 1994 Respiratory auscultation Overall: breath sounds clear bilaterally 04/23/2019 None Full Exam - General 1994 Respiratory respiratory effort/rhythm Overall: no retractions 04/23/2019 None Full Exam - General 1994 Respiratory respiratory effort/rhythm Overall: normal rate 04/23/2019 None Full Exam - General 1994 Cardiovascular extremities Overall: no clubbing 04/23/2019 None Full Exam - General 1994 Cardiovascular auscultation of heart Overall: regular rate 04/23/2019 None Full Exam - General 1994 Cardiovascular auscultation of heart Overall: normal heart sounds 04/23/2019 None Full Exam - General 1994 Cardiovascular auscultation of heart Systolic murmur: midsystolic 04/23/2019 None Full Exam - General 1994 Abdomen stool sample obtained Overall: normal appearance 04/23/2019 None Full Exam - General 1994 Abdomen stool sample obtained Overall: occult blood negative 04/23/2019 None Full Exam - General 1994 Psychiatric orientation/consciousness Overall: oriented to person, place and time 04/23/2019 None Full Exam - General 1994 Psychiatric mood and affect Overall: normal mood and affect 04/23/2019 None Full Exam - General 1994 Neurologic cranial nerves Overall: crainial nerves 2 - 12 grossly intact 04/23/2019 None Full Exam - General 1994 Constitutional [...] anterior lower ribs Full Exam - General 1995 Constitutional general appearance Development: well developed 01/08/2019 [...] tympanosclerosis 02/19/2015 None Procedures Procedure Codes Date URINALYSIS NONAUTO W/O SCOPE CPT-4: 62988 05/23/2019 PPPS, SUBSEQ VISIT CPT- 4: G0439 08/10/2018 ADMIN INFLUENZA VIRUS VAC CPT-4: G0008 07/05/2018 FLU VACC PRSV FREE INC ANTIG Formatting Model/CDA Sections, Assigned to/Sharee Ramirez CPT-4: 47281Xypetwt 07/05/2018 THER/PROPH/DIAG INJ SC/IM CPT-4: 47273 06/12/2018 TRIAMCINOLONE ACET INJ NOS CPT-4: J3301 06/12/2018 PPPS, SUBSEQ VISIT CPT- 4: G0439 08/03/2017 ADMIN INFLUENZA VIRUS VAC CPT-4: G0008 06/28/2016 FLU VACC PRSV FREE INC ANTIG CPT-4: 28991 06/28/2016 TENIVAC TD VACCINE NO PRSRV 7/> IM CPT-4: 33992 06/28/2016 OCCULT BLOOD FECES CPT- 4: 10983 02/19/2015 Vital Signs Date Vital 05/21/2019 Blood Pressure 1: 120/78 Code: 8480-6 Heart Rate 1: 80 bpm Height: SpO2: 98% Weight: 04/23/2019 Blood Pressure 1: 140/70 Code: 8480-6 BMI: 28.5 Code: 24633-0 Heart Rate 1: 58 bpm Height: 6' SpO2: 92% Weight: 210 lbs 03/05/2019 Blood Pressure 1: 128/76 Code: 8480-6 BMI: 28.5 Code: 35138-8 Heart Rate 1: 85 bpm Height: 6' SpO2: 96% Weight: 210 lbs 02/12/2019 Blood Pressure 1: 110/70 Code: 8480-6 BMI: 28.5 Code: 18099-3 Heart Rate 1: 70 bpm Height: 6' SpO2: 93% Weight: 210 lbs 01/29/2019 Blood Pressure 1: 110/78 Code: 8480-6 BMI: 28.5 Code: 32670-5 Heart Rate 1: 98 bpm Height: 6' SpO2: 90% Weight: 210 lbs 2019 Blood Pressure 1: 136/74 Code: 8480-6 BMI: 28.6 Code: 95274-5 Heart Rate 1: 97 bpm Height: 6' SpO2: 94% Weight: 211 lbs 01/08/2019 Blood Pressure 1: 128/86 Code: 8480-6 BMI: 28.6 Code: 98960-8 Heart Rate 1: 96 bpm Height: 6' SpO2: 97% Weight: 211 lbs 12/25/2018 Blood Pressure 1: 112/62 Code: 8480-6 BMI: 28.6 Code: 80821-2 Heart Rate 1: 76 bpm Height: 6' SpO2: 96% Weight: 211 lbs 12/13/2018 Blood Pressure 1: 114/78 Code: 8480-6 BMI: 29.4 Code: 14744-5 Heart Rate 1: 73 bpm Height: 6' SpO2: 93% Weight: 217 lbs 11/27/2018 Blood Pressure 1: 110/70 Code: 8480-6 BMI: 28.5 Code: 14982-4 Heart Rate 1: 90 bpm Height: 6' SpO2: 95% Temperature: 36.8 (C) / 98.2 (F) Weight: 210 lbs 8 oz 09/26/2018 Blood Pressure 1: 130/80 Code: 8480-6 BMI: 29.6 Code: 07275-7 Heart Rate 1: 98 bpm Height: 6' SpO2: 93% Weight: 218 lbs 08/10/2018 BMI: 29.4 Code: 67119-3 Height: 6' Weight: 217 lbs 07/26/2018 Blood Pressure 1: 116/72 Code: 8480-6 BMI: 29.4 Code: 18117-7 Heart Rate 1: 102 bpm Height: 6' SpO2: 96% Weight: 217 lbs 07/05/2018 Blood Pressure 1: 132/72 Code: 8480-6 Heart Rate 1: 60 bpm SpO2: 95% 06/12/2018 Blood Pressure 1: 120/78 Code: 8480-6 BMI: 29.6 Code: 85263-8 Heart Rate 1: 103 bpm Height: 6' SpO2: 96% Weight: 218 lbs 05/10/2018 Blood Pressure 1: 114/68 Code: 8480-6 BMI: 29.4 Code: 31319-8 Heart Rate 1: 92 bpm Height: 6' SpO2: 97% Weight: 217 lbs 03/27/2018 Blood Pressure 1: 126/74 Code: 8480-6 BMI: 30.1 Code: 75434-8 Heart Rate 1: 103 bpm Height: 6' SpO2: 96% Weight: 222 lbs 01/25/2018 Blood Pressure 1: 122/70 Code: 8480-6 Blood Pressure 2: 126/73 Code: 8480-6 Heart Rate 1: 63 bpm SpO2: 94% 01/24/2018 Blood Pressure 1: 110/72 Code: 8480-6 BMI: 29.7 Code: 54996-9 Heart Rate 1: 88 bpm Height: 6' SpO2: 95% Weight: 219 lbs 12/08/2017 Blood Pressure 1: 120/68 Code: 8480-6 BMI: 30.0 Code: 11569-6 Heart Rate 1: 91 bpm Height: 6' SpO2: 96% Temperature: 36.7 (C) / 98.1 (F) Weight: 221 lbs 10/27/2017 Blood Pressure 1: 124/76 Code: 8480-6 BMI: 30.1 Code: 75771-8 Heart Rate 1: 69 bpm Height: 6' SpO2: 95% Weight: 222 lbs 09/29/2017 Blood Pressure 1: 118/66 Code: 8480-6 BMI: 29.9 Code: 58993-3 Heart Rate 1: 81 bpm Height: 6' SpO2: 95% Weight: 220 lbs 8 oz 09/01/2017 Blood Pressure 1: 122/82 Code: 8480-6 BMI: 29.6 Code: 78502-3 Heart Rate 1: 75 bpm Height: 6' SpO2: 97% Weight: 218 lbs 08/03/2017 Blood Pressure 1: 120/68 Code: 8480-6 Heart Rate 1: 68 bpm Height: 6' SpO2: 94% Waist Measure (cm): 97 cm 04/26/2017 Blood Pressure 1: 122/72 Code: 8480-6 BMI: 29.4 Code: 57608-9 Heart Rate 1: 85 bpm Height: 6' SpO2: 92% Weight: 217 lbs 01/25/2017 Blood Pressure 1: 118/78 Code: 8480-6 BMI: 29.4 Code: 37017-1 Heart Rate 1: 72 bpm Height: 6' SpO2: 94% Temperature: 36.9 (C) / 98.5 (F) Weight: 217 lbs 10/26/2016 Blood Pressure 1: 152/86 Code: 8480-6 BMI: 29.7 Code: 95213-8 Heart Rate 1: 58 bpm Height: 6' Weight: 219 lbs 09/27/2016 Blood Pressure 1: 138/80 Code: 8480-6 BMI: 29.4 Code: 27542-1 Heart Rate 1: 52 bpm Height: 6' SpO2: 98% Weight: 217 lbs 06/28/2016 Blood Pressure 1: 128/86 Code: 8480-6 BMI: 29.6 Code: 86257-1 Heart Rate 1: 69 bpm Height: 6' SpO2: 93% Weight: 218 lbs 04/27/2016 Blood Pressure 1: 118/82 Code: 8480-6 BMI: 29.3 Code: 24175-7 Heart Rate 1: 85 bpm Height: 6' SpO2: 98% Weight: 216 lbs 02/17/2016 Blood Pressure 1: 132/80 Code: 8480-6 BMI: 28.8 Code: 88341-0 Heart Rate 1: 94 bpm Height: 6' SpO2: 98% Weight: 212 lbs 01/20/2016 Blood Pressure 1: 120/70 Code: 8480-6 BMI: 29.7 Code: 97877-4 Heart Rate 1: 87 bpm Height: 6' SpO2: 92% Weight: 219 lbs 01/06/2016 Blood Pressure 1: 122/88 Code: 8480-6 BMI: 28.8 Code: 88579-9 Heart Rate 1: 83 bpm Height: 6' SpO2: 97% Weight: 212 lbs 12/16/2015 Blood Pressure 1: 98/62 Code: 8480-6 Heart Rate 1: 62 bpm Height: 6' SpO2: 90% Weight: 11/27/2015 Blood Pressure 1: 90/64 Code: 8480-6 Blood Pressure 1: 110/80 Code: 8480-6 Heart Rate 1: 91 bpm Height: 6' SpO2: 92% Weight: 07/30/2015 Blood Pressure 1: 112/82 Code: 8480-6 BMI: 30.5 Code: 61627-9 Heart Rate 1: 82 bpm Height: 6' SpO2: 92% Weight: 225 lbs 06/09/2015 Blood Pressure 1: 130/76 Code: 8480-6 BMI: 31.1 Code: 99504-6 Heart Rate 1: 65 bpm Height: 6' SpO2: 96% Weight: 229 lbs 04/29/2015 Blood Pressure 1: 118/78 Code: 8480-6 BMI: 30.7 Code: 97314-3 Heart Rate 1: 70 bpm Height: 6' Weight: 226 lbs 02/19/2015 Blood Pressure 1: 118/70 Code: 8480-6 BMI: 29.7 Code: 23865-3 Heart Rate 1: 68 bpm Height: 6' Weight: 219 lbs Functional Status No Functional Status data History of Present Illness Symptom Name Status Result Effective Date Notes Quality intermittent 05/21/2019 None Onset and Resolution sudden in onset 05/21/2019 None Triggers no known associated factors 05/21/2019 None _ Other: aneurysm, weakness 04/23/2019 None Quality improving 04/23/2019 None Alleviating Factors activity 04/23/2019 None Onset and Resolution ongoing 03/05/2019 None [...] Codes Date EST. PATIENT, LEVEL III Diagnosis: Epistaxis[ICD10: R04.0] Mady Butcher MD, [facility] CPT-4: 10483 05/21/2019 ([id number]) 65613 EST. PATIENT, LEVEL IV Diagnosis: Essential (primary) hypertension[ICD10: I10] Diagnosis: Major depressive disorder, recurrent, mild[ICD10: F33.0] Diagnosis: Muscle weakness (generalized)[ICD10: M62.81] Diagnosis: Mixed hyperlipidemia[ICD10: E78.2] Lesley Butcher MD, [facility] CPT- 4: 47864 04/23/2019 ([id number]) 64337 EST. PATIENT, LEVEL IV Diagnosis: Essential (primary) hypertension[ICD10: I10] Diagnosis: Unsteadiness on feet[ICD10: R26.81] Diagnosis: Abdominal aortic aneurysm, without rupture[ICD10: I71.4] Lesley Butcher MD, [facility] CPT-4: 09838 03/05/2019 ([id number]) 84462 EST. PATIENT, LEVEL IV Diagnosis: Paroxysmal atrial fibrillation[ICD10: I48.0] Diagnosis: Essential (primary) hypertension[ICD10: I10] Diagnosis: Frequency of micturition[ICD10: R35.0] Merline Butcher MD, [facility] CPT-4: 79426 02/12/2019 ([id number]) 49215 EST. PATIENT, LEVEL V Diagnosis: Essential (primary) hypertension[ICD10: I10] Diagnosis: Dizziness and giddiness[ICD10: R42] Diagnosis: Vertigo of central origin, right ear[ICD10: H81.41] Lesley Butcher MD, [facility] CPT-4: 64303 01/29/2019 [id number] EST. PATIENT, LEVEL III Diagnosis: Pleurodynia[ICD10: R07.81] Mady Butcher MD, [facility] CPT-4: 20253 2019 ([id number]) 51056 EST. PATIENT, LEVEL III Diagnosis: Other allergic rhinitis[ICD10: J30.89] Merline Butcher MD, [facility] CPT-4: 90015 01/08/2019 [id number] EST. PATIENT, LEVEL IV Diagnosis: Other fatigue[ICD10: R53.83] Diagnosis: Obstructive sleep apnea (adult) (pediatric)[ICD10: G47.33] Diagnosis: Other malaise[ICD10: R53.81] Mady Butcher MD, [facility] CPT-4: 76171 12/25/2018 ([id number]) 26437 EST. PATIENT, LEVEL IV Diagnosis: Shortness of breath[ICD10: R06.02] Diagnosis: Other fatigue[ICD10: R53.83] Diagnosis: Obstructive sleep apnea (adult) (pediatric)[ICD10: G47.33] Diagnosis: Other malaise[ICD10: R53.81] Lesley Butcher MD, [facility] CPT-4: 82237 12/13/2018 ([id number]) 82702 EST. PATIENT, LEVEL IV Diagnosis: Shortness of breath[ICD10: R06.02] Diagnosis: Dizziness and giddiness[ICD10: R42] Diagnosis: Other fatigue[ICD10: R53.83] Diagnosis: Essential (primary) hypertension[ICD10: I10] Diagnosis: Muscle weakness (generalized)[ICD10: M62.81] Merline Butcher MD, [facility] CPT-4: 90934 11/27/2018 ([id number]) 23160 EST. PATIENT, LEVEL IV Diagnosis: Essential (primary) hypertension[ICD10: I10] Diagnosis: Vertigo of central origin, right ear[ICD10: H81.41] Diagnosis: Low back pain[ICD10: M54.5] Lesley Butcher MD [facility] CPT-4: 69653 09/26/2018 ([id number]) 54738 EST. PATIENT, LEVEL III Diagnosis: Dizziness and giddiness[ICD10: R42] Diagnosis: Vertigo of central origin, right ear[ICD10: H81.41] Diagnosis: Essential (primary) hypertension[ICD10: I10] Lesley Butcher MD [facility] CPT-4: 68399 07/26/2018 ([id number]) 03399 EST. PATIENT, LEVEL III Diagnosis: Essential (primary) hypertension[ICD10: I10] Lesley Butcher MD [facility] CPT-4: 80874 06/12/2018 ([id number]) 42661 EST. PATIENT, LEVEL IV Diagnosis: Other iron deficiency anemias[ICD10: D50.8] Diagnosis: Weakness[ICD10: R53.1] Diagnosis: Diverticulosis of large intestine without perforation or abscess with bleeding[ICD10: K57.31] Lesley Butcher MD [facility] CPT-4: 51210 05/10/2018 ([id number]) 29289 EST. PATIENT, LEVEL IV Diagnosis: Essential (primary) hypertension[ICD10: I10] Diagnosis: Major depressive disorder, recurrent, mild[ICD10: F33.0] Diagnosis: Sensorineural hearing loss, bilateral[ICD10: H90.3] Lesley Butcher MD [facility] CPT-4: 80756 03/27/2018 ([id number]) Miscellaneous no charge Diagnosis: Essential (primary) hypertension[ICD10: I10] Mady Butcher MD [facility] CPT-4: 36090 01/25/2018 ([id number]) 28333 EST. PATIENT, LEVEL IV Diagnosis: Essential (primary) hypertension[ICD10: I10] Diagnosis: Sensorineural hearing loss, bilateral[ICD10: H90.3] Diagnosis: Mixed hyperlipidemia[ICD10: E78.2] Diagnosis: Major depressive disorder, recurrent, mild[ICD10: F33.0] Lesley Butcher MD [facility] CPT-4: 00880 01/24/2018 [id number] EST. PATIENT, LEVEL IV Diagnosis: Other malaise[ICD10: R53.81] Diagnosis: Fever, unspecified[ICD10: R50.9] Mady Butcher MD, [facility] CPT-4: 82211 12/08/2017 ([id number]) 78684 EST. PATIENT, LEVEL III Diagnosis: Essential (primary) hypertension[ICD10: I10] Lesley Butcher MD [facility] CPT-4: 31278 10/27/2017 ([id number]) 99741 EST. PATIENT, LEVEL III Diagnosis: Benign prostatic hyperplasia with lower urinary tract symptoms[ICD10: N40.1] Diagnosis: Dysphagia, pharyngeal phase[ICD10: R13.13] Lesley Butcher MD, [facility] CPT-4: 59507 09/29/2017 ([id number]) 18712 EST. PATIENT, LEVEL IV Diagnosis: Essential (primary) hypertension[ICD10: I10] Diagnosis: Major depressive disorder, recurrent, mild[ICD10: F33.0] Diagnosis: Sensorineural hearing loss, bilateral[ICD10: H90.3] Lesley Butcher MD, [facility] CPT-4: 95946 09/01/2017 ([id number]) 15751 EST. PATIENT, LEVEL IV Diagnosis: Essential (primary) hypertension[ICD10: I10] Diagnosis: Major depressive disorder, recurrent, mild[ICD10: F33.0] Diagnosis: Mixed hyperlipidemia[ICD10: E78.2] Lesley Butcher MD [facility] CPT- 4: 79131 04/26/2017 ([id number]) 47700 EST. PATIENT, LEVEL IV Diagnosis: Essential (primary) hypertension[ICD10: I10] Diagnosis: Major depressive disorder, recurrent, mild[ICD10: F33.0] Diagnosis: Urge incontinence[ICD10: N39.41] Lesley Butcher MD [facility] CPT-4: 73494 01/25/2017 ([id number]) 75438 EST. PATIENT, LEVEL IV Diagnosis: Essential (primary) hypertension[ICD10: I10] Diagnosis: Major depressive disorder, recurrent, mild[ICD10: F33.0] Diagnosis: Urge incontinence[ICD10: N39.41] Lesley Butcher MD, [facility] CPT-4: 10540 10/26/2016 [id number] 15394 EST. PATIENT, LEVEL III Diagnosis: Essential (primary) hypertension[ICD10: I10] Diagnosis: Major depressive disorder, recurrent, mild[ICD10: F33.0] Diagnosis: Urge incontinence[ICD10: N39.41] Lesley Butcher MD, [facility] CPT-4: 42406 09/27/2016 [id number]) 90634 EST. PATIENT, LEVEL IV Diagnosis: Essential (primary) hypertension[ICD10: I10] Diagnosis: Encounter for immunization[ICD10: Z23] Diagnosis: Laceration without foreign body of left forearm, initial encounter[ICD10: S51.812A] Diagnosis: Laceration without foreign body of right forearm, initial encounter[ICD10: S51.811A] Diagnosis: Major depressive disorder, recurrent, mild[ICD10: F33.0] eLsley Butcher MD, [facility] CPT-4: 24511 06/28/2016 [id number]) 60599 EST. 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 PATIENT, LEVEL IV Diagnosis: Weakness[ICD10: R53.1] Diagnosis: Gout, unspecified[ICD10: M10.9] Diagnosis: Hypotension, unspecified[ICD10: I95.9] Lesley Butcher MD, [facility] CPT-4: 75139 12/16/2015 ([id number]) Patient admitted to the hospital from clinic (NO CHARGE) Diagnosis: Hypoxemia[ICD10: R09.02] Diagnosis: Weakness[ICD10: R53.1] Diagnosis: Dyspnea, unspecified[ICD10: R06.00] Mady Butcher MD, [facility] CPT- 4: 85842R 11/27/2015 ([id number]) 22575 EST. PATIENT, LEVEL III Diagnosis: Essential (primary) hypertension[ICD10: I10] Diagnosis: Gastro-esophageal reflux disease without esophagitis[ICD10: K21.9] Lesley Butcher MD, [facility] CPT-4: 03359 07/30/2015 ([id number]) 04970 EST. PATIENT, LEVEL III Diagnosis: ESSENTIAL HYPERTENSION[ICD9: 401.9] Merline Butcher MD, [facility] CPT-4: 13269 06/09/2015 ([id number]) 09463 EST. PATIENT, LEVEL III Diagnosis: ESSENTIAL HYPERTENSION[ICD9: 401.9] Lesley Butcher MD, [facility] CPT- 4: 73655 04/29/2015 ([id number]) OFFICE/OUTPATIENT VISIT NEW Diagnosis: ESSENTIAL HYPERTENSION[ICD9: 401.9] Diagnosis: DEPRESSIVE DISORDER NEC[ICD9: 311] Diagnosis: Enlarged prostate[ICD9: 600.00] Diagnosis: Nasal inflammation due to allergen[ICD9: 477.9] [facility] CPT-4: 04862 02/19/2015 Plan of Care Planned Activity Notes Codes Status Date Patient Education: Patient Medication Summary Completed 05/23/2019 Care Plan: Urine Culture Pending 05/23/2019 Visit Plan: Left nare ulceration - silver nitrated utilized to cauterize area, pt tolerated procedure well, pt is to avoid nasal sprays, but continue with oral allergy medications - pt is to notify clinic if symptoms return, or with any other changes, questions, or concerns. 05/21/2019 Appointment: Mady Dunne WPtel: [facility]5 [facility] (30 min) Complex 05/21/2019 Patient Education: Patient Medication Summary Completed 05/21/2019 Appointment: Lesley Butcher WPtel: [phone] [facility] (15 min) Moderate 05/07/2019 Visit Plan: Hypertension - well controlled - [...] to assure normal liver response to medications. Depression - improved with improved health status - pt to continue with current antidepressant therapy. NPH - symptoms improved with shunt placement. 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 04/23/2019 App[facility]ment: [phone] (15 min) Moderate 04/23/2019 Appointment: Merline Rose WPtel: [phone] [phone] [place] (30 min) Complex 04/23/2019 Patient Education: Patient Medication Summary Completed 04/23/2019 Patient Education: Depression Completed 04/23/2019 Patient Education: Cholesterol Management Completed 04/23/2019 Visit Plan: Back weakness/pain, unsteadiness on feet [...] and discussion. 03/05/2019 Appointment: [phone] (15 min) Moderate 03/05/2019 Patient Education: Patient Medication Summary Completed 03/05/2019 Visit Plan: Afib-new diagnosis with cardiology -Dr Deleon -now on coumadin-will return to [place] in 2 weeks to discuss watchman device UMS-olskdvezrd-qk changes Urinary frequency and urgency -check UA -patient unable to void at appt -will bring back sample 02/12/2019 [facility]ment[phone] (30 min) Complex 02/12/2019 Patient Education: Patient [...] when he had previous blockages - his electronics maintenance technician in [place] does not seem to be as interested as his family would like - they are wondering about transitioning back to someone from his previous electronics maintenance technician 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 They have a potential appt pending. [...] when he had previous blockages - his electronics maintenance technician in [place] does not seem to be as interested as his family would like - they are wondering about transitioning back to someone from his previous electronics maintenance technician group. They have a potential appt pending. I spent 45 minutes with the patient and his family in direct contact and discussion. 01/29/2019 Appointment: Lesley Butcher WPtel: [facility]5 [facility] (30 min) Complex 01/29/2019 Patient Education: Patient Medication Summary Completed 01/29/2019 Visit Plan: Left rib pain - x-ray pending - The pt is to use prn antiinflammatories to manage acute pain. The patient is to call the office if the pain is worsening or does not improve. 2019 Appointment: Mady Dunne WPtel: [facility]3 [facility] (30 min) Complex 2019 Patient Education: Patient [...] allergy spray. 01/08/2019 Appointment: Merline Rose WPtel: [phone] [phone] [place] (30 min) Complex 01/08/2019 Patient Education: Patient Medication Summary Completed 01/08/2019 Visit Plan: Fatigue, shortness of breath, dizziness - pt is to continue PT, pt is to follow up with Dr. Panda and Dr. Harvey and is to notify clinic with any changes in the current treatment plan. 12/25/2018 Appointment: Mady Dunne WPtel: [phone] [facility] [place] (15 min) Moderate 12/25/2018 Patient Education: Patient [...] 96% 12/13/2018 Appointment: [phone] [place] (15 min) Moderate 12/13/2018 Patient Education: Patient Medication Summary Completed 12/13/2018 Visit Plan: VEY-tczfbqi-opwjuxzca of breath -patient reports worsening of chronic symptoms -will check EKG and cardiac enzymes to evaluate for acute changes -recommend patient follow up with his electronics maintenance technician, Dr Sharyn vu -patient, and daughter verbalized understanding of plan. Generalized weakness-discussed PT referral after cleared by cardiology -patient's will call us when she wants to have it set up HTN-no change but monitor at home 11/27/2018 Appointment: Merline Rose WPtel: [phone] [phone] [place] (15 min) Moderate 11/27/2018 Patient Education: [...] cryotherapy sessions. 09/26/2018 Appointment: [phone] (15 min) Moderate 09/26/2018 Patient Education: [...] care surrogate. 08/10/2018 App[facility]ment: [facility]el[phone] [facility] - Annual Wellness Visit 08/10/2018 [...] home. 07/26/2018 Appointment: Les[facility] But[facility]el[phone] (15 min) Moderate 07/26/2018 Patient Education: [...] his dexamethasone. 06/12/2018 Appointment: Lesley Butcher WPtel: [phone] [facility] (15 min) Moderate 06/12/2018 Patient Education: Patient [...] Butcher WPtel: [facility]3 [facility] (30 min) Complex 05/10/2018 Patient Education: Patient [...] cochlear implant. 03/27/2018 Appointment: Lesley Butcher WPtel: [phone] [facility] (15 min) Moderate 03/27/2018 Patient Education: Patient [...] Butcher WPtel: [facility]5 [facility] (15 min) Moderate 01/24/2018 Patient Education: Patient Medication Summary Completed 01/24/2018 Visit Plan: Influenza - pt started on tamiflu - pt to start on anti-inflammatories, tylenol and monitor symptoms. Pt to call if not improving. Pt to alert any close contacts as to illness. 12/08/2017 Appointment: Mady Dunne WPtel: [facility] (30 min) Complex 12/08/2017 Patient Education: [...] at home. 10/27/2017 Appointment: Lesley Butcher WPtel: [facility] (15 min) Moderate 10/27/2017 Patient Education: Patient Medication Summary Completed 10/27/2017 Referral: External, Ordering Provider Referral Initiated 10/12/2017 Visit Plan: BPH - continue with dutasteride and flomax Dysphagia - referral to Dr. Kumar for EGD - question stricture - dysphagia intermittently - hx of stricture. 09/29/2017 Appointment: Lesley Butcher WPtel: [address] [place], [place] [id number] (15 min) Moderate 09/29/2017 Patient Education: Patient Medication Summary Completed 09/29/2017 Care Plan: Referral Order SNOMED-CT : [id number] Pending 09/29/2017 Visit Plan: Hypertension - well [...] recommended patient to have an evaluation at [facility] to see if he has potential for cochlear implant. 09/01/2017 Appointment: Lesley Butcher WPtel: [facility]4 [facility] (15 min) Moderate 09/01/2017 Patient Education: Patient Medication Summary Completed 09/01/2017 Care Plan: Referral Order SNOMED-CT : [id number] Pending 09/01/2017 Visit Plan: Medicare Exam - [...] care surrogate. 08/03/2017 Appointment: Mady Dunne WPtel: [facility] [facility] - Welcome to Medicare visit [...] medications. 04/26/2017 Appointment: [facility] But[facility]el[phone] (15 min) Moderate 04/26/2017 Patient Education: [...] daily. 01/25/2017 Appointment: [facility] But[facility]el[phone] (30 min) Complex 01/25/2017 Patient Education: [...] Butcher WPtel: [phone] [facility] (15 min) Moderate 10/26/2016 Patient Education: Patient [...] Butcher WPtel: [phone] [facility] (15 min) Moderate 09/27/2016 Patient Education: Patient [...] Butcher WPtel: [phone] [facility] (15 min) Moderate 06/28/2016 Patient Education: Patient [...] 1 month 02/17/2016 Appointment: Merline Rose WPtel: [address] [place] [phone] (30 min) Complex 02/17/2016 Patient Education: Patient [...] Summary Completed 12/16/2015 Appointment: Lesley Butcher WPtel: [phone] [facility] (15 min) Moderate 12/04/2015 Appointment: Lesley Butcher WPtel: [phone] [facility] (15 min) Moderate 12/02/2015 Visit Plan: Admission [...] THE PHARMACY 07/30/2015 Appointment: [facility]el[phone] (15 min) Moderate 07/30/2015 Patient Education: [...] at home. 04/29/2015 Appointment: Lesley Butcher WPtel: [facility] (15 min) Moderate 04/29/2015 Patient Education: [...] Provider Referral Appointment Requested Referral: [facility] 09/12 Referral info faxed Appointment Requested Referral: [facility] Referral Appointment Requested Instructions Comment [...] not want medication at this time. . Left nare ulceration - silver nitrated utilized to cauterize area, pt tolerated procedure well, pt is to avoid nasal sprays, but continue with oral allergy medications - pt is to notify clinic if symptoms return, or with any other changes, questions, or concerns. . Hypertension - well controlled [...] in back and call the director of convention services about a biopsy of the lesion on [...] TODAY . Afib-new diagnosis with cardiology -Dr Dleeon -now on coumadin-will return to [place] in 2 weeks to discuss watchman device XAE-pmjxngoitp-ir changes Urinary frequency and urgency -check UA -[facility] . Hypertension - [...] to assure normal liver response to medications. Depression - improved with improved health status - pt to continue with current antidepressant therapy. NPH - symptoms improved with shunt placement. 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 Take 1/2 tab of Citalopram daily for [...] in the nasal steroid allergy spray. . Back weakness/pain, unsteadiness on feet - [...] his family in direct contact and discussion. . Admission to Hospital - Dr. Butcher [...] ILLNESS. CHECK CARDIAC ENYZMES AND EKG . RSP-tlwseqt-mnjtwbgtr of breath -patient reports worsening of chronic symptoms -will check EKG and cardiac enzymes to evaluate for acute changes -recommend patient follow up with his electronics maintenance technician, Dr Stoeks -patient, and daughter verbalized understanding of plan. [...] recommended patient to have an evaluation at [facility] to see if he has potential [...] when he had previous blockages - his electronics maintenance technician in [place] does not seem to be as interested as his family would like - they are wondering about transitioning back to someone from his previous electronics maintenance technician group. They have a potential appt pending. [...] when he had previous blockages - his electronics maintenance technician in [place] does not seem to be as interested as his family would like - they are wondering about transitioning back to someone from his previous electronics maintenance technician group. They have a potential appt pending. I spent 45 minutes with the patient and his family in direct contact and discussion.
--- OUTSIDE RECORDS SUMMARY | 2019-05-25 01:13 | XMS REPORT | CCD ---
Author Author [facility] Organization [facility] Address [address] [place] [address] Phone Care Team Providers Care Bookkeeping Teacher Name Role Phone PP Unavailable CCM Unavailable Summary Purpose Interface Exchange Insurance Providers Payer name Policy type / Coverage type Covered republican ID Effective Begin Date Effective End Date WPS Medicare Part B Medicare Part B [id number] 2018 Unknown [facility] Medicare Part B [id number] 2018 Unknown Family history Father Diagnosis Age At Onset Hypertension Unknown Coronary Artery Disease Unknown Sister Diagnosis Age At Onset Heart disease Unknown Mother Diagnosis Age At Onset Coronary Artery Disease Unknown Hypertension Unknown Social History Social History Element Codes Description Effective Dates Marital status Unknown 02/19/2015 Number of children Unknown 2 02/19/2015 Employment Unknown Retired 02/19/[address]: 317728740 Has never smoked or chewed tobacco 02/19/2015 Alcohol history Unknown occasionally drinks alcohol 02/19/2015 Allergies, Adverse Reactions, Alerts Substance Reaction Codes Entered Date Inactivated Date Status bactrim RxNorm: 284233 12/19/2015 No Inactive Date Active ciprofloxacin RxNorm: 42655 02/18/2015 No Inactive Date Active IV DYE, [...] Date Stop Date Status Fill Instructions atorvastatin 80 mg tablet RxNorm: 552056 1 Tablet(s) PO daily 04/23/2019 No Stop Date Active Vitamin D3 1,000 unit capsule RxNorm: 245320 1 Capsule(s) PO daily 04/23/2019 No Stop Date Active nitroglycerin 0.4 mg sublingual tablet RxNorm: 055869 1 Tablet(s) SL x3 in 15 min as needed 03/05/2019 No Stop Date Active losartan 50 mg tablet RxNorm: 535996 1 Tablet(s) PO daily 02/16/2019 02/10/2020 Active Requip 0.25 mg tablet RxNorm: 903903 1 Tablet(s) PO QHS 01/29/2019 01/23/2020 Active Flomax 0.4 mg capsule RxNorm: 502555 TAKE 1 CAPSULE BY MOUTH ONCE DAILY IN THE EVENING 01/25/2019 No Stop Date Active Requip 0.25 mg tablet RxNorm: 049283 1 Tablet(s) PO QHS 2019 01/28/2019 Inactive pantoprazole 40 mg tablet,delayed release RxNorm: 648946 TAKE ONE TABLET BY MOUTH ONCE DAILY AT BEDTIME 11/27/2018 No Stop Date Active atorvastatin 40 mg tablet RxNorm: 726114 1 Tablet(s) PO daily 09/26/2018 10/25/2018 Inactive dexamethasone 0.5 mg tablet RxNorm: 874392 TAKE 1 TABLET BY MOUTH ONCE DAILY 08/29/2018 04/22/2019 Inactive clonazepam 1 mg tablet RxNorm: 330473 1/2 Tablet(s) PO QHS 08/24/2018 04/22/2019 Inactive allopurinol 100 mg tablet RxNorm: 522130 TAKE ONE TABLET BY MOUTH ONCE DAILY 08/03/2018 No Stop Date Active citalopram 40 mg tablet RxNorm: 837000 TAKE ONE TABLET BY MOUTH ONCE DAILY 06/13/2018 No Stop Date Active Kenalog 40 mg/mL suspension for injection RxNorm: 6388198 Milliliter(s) Inj 06/12/2018 06/12/2018 Inactive clonazepam 1 mg tablet RxNorm: 866901 1 Tablet(s) PO QHS 06/12/2018 08/23/2018 Inactive clonazepam 1 mg tablet RxNorm: 726446 1/2 Tablet(s) TAKE ONE TABLET BY MOUTH ONCE DAILY AT BEDTIME AND ONE TABLET THREE TIMES DAILY NEEDED 05/24/2018 06/11/2018 Inactive citalopram 40 mg tablet RxNorm: 192806 1/2 Tablet(s) TAKE ONE TABLET BY MOUTH ONCE DAILY 05/24/2018 09/25/2018 Inactive losartan 50 mg tablet RxNorm: 491024 1/2 Tablet(s) PO daily 05/24/2018 02/15/2019 Inactive spironolactone 25 mg tablet RxNorm: 888573 TAKE ONE TABLET BY MOUTH ONCE DAILY 05/22/2018 No Stop Date Active dexamethasone 0.5 mg tablet RxNorm: 192778 TAKE ONE TABLET BY MOUTH ONCE DAILY 02/21/2018 08/28/2018 Inactive Flomax 0.4 mg capsule RxNorm: 214594 TAKE ONE CAPSULE BY MOUTH ONCE DAILY IN THE EVENING 12/19/2017 01/24/2019 Inactive Tamiflu 75 mg capsule RxNorm: 169829 1 Capsule(s) PO BID 12/08/2017 12/12/2017 Inactive clonazepam 1 mg tablet RxNorm: 073861 Tablet(s) TAKE ONE TABLET BY MOUTH ONCE DAILY AT BEDTIME AND ONE TABLET THREE TIMES DAILY NEEDED 11/28/2017 01/26/2018 Inactive pantoprazole 40 mg tablet,delayed release RxNorm: 155625 TAKE ONE TABLET BY MOUTH ONCE DAILY AT BEDTIME 11/07/2017 11/26/2018 Inactive allopurinol 100 mg tablet RxNorm: 875287 TAKE ONE TABLET BY MOUTH ONCE DAILY 10/03/2017 08/02/2018 Inactive pantoprazole 40 mg tablet,delayed release RxNorm: 844334 1 Tablet(s) PO BID 09/01/2017 05/28/2018 Inactive Vitamin B-6 100 mg tablet RxNorm: 495016 1 Tablet(s) PO daily 09/01/2017 06/11/2018 Inactive dutasteride 0.5 mg capsule RxNorm: 770529 1 Capsule(s) PO QPM 09/01/2017 06/11/2018 Inactive spironolactone 25 mg tablet RxNorm: 217330 TAKE ONE TABLET BY MOUTH ONCE DAILY 08/15/2017 05/21/2018 Inactive citalopram 40 mg tablet RxNorm: 247746 TAKE ONE TABLET BY MOUTH ONCE DAILY 08/08/2017 05/04/2018 Inactive dexamethasone 0.5 mg tablet RxNorm: 093700 TAKE ONE TABLET BY MOUTH ONCE DAILY 08/08/2017 11/05/2017 Inactive clonazepam 1 mg tablet RxNorm: 067746 1 Tablet(s) PO QHS AND 1 TAB PO TID PRN 05/12/2017 05/13/2017 Inactive clonazepam 1 mg tablet RxNorm: 759812 TAKE ONE TABLET BY MOUTH ONCE DAILY AT BEDTIME AND ONE THREE TIMES DAILY NEEDED 05/12/2017 04/22/2019 Inactive oxybutynin chloride ER 10 mg tablet,extended release 24 hr RxNorm: 875372 1 Tablet(s) PO daily 04/29/2017 08/02/2017 Inactive dexamethasone 0.5 mg tablet RxNorm: 458813 TAKE ONE TABLET BY MOUTH ONCE DAILY 02/14/2017 04/14/2017 Inactive Flomax 0.4 mg capsule RxNorm: 125774 TAKE ONE CAPSULE BY MOUTH ONCE DAILY IN THE EVENING 02/14/2017 11/10/2017 Inactive pantoprazole 40 mg tablet,delayed release RxNorm: 802449 TAKE ONE TABLET BY MOUTH ONCE DAILY AT BEDTIME 02/14/2017 08/31/2017 Inactive oxybutynin chloride ER 10 mg tablet,extended release 24 hr RxNorm: 715805 1 Tablet(s) PO daily 01/25/2017 04/24/2017 Inactive dexamethasone 0.5 mg tablet RxNorm: 592037 TAKE ONE TABLET BY MOUTH ONCE DAILY 11/10/2016 12/09/2016 Inactive oxybutynin chloride ER 5 mg tablet,extended release 24 hr RxNorm: 245612 1 Tablet(s) PO daily 10/28/2016 10/27/2016 Inactive oxybutynin chloride ER 5 mg tablet,extended release 24 hr RxNorm: 130406 1 Tablet(s) PO daily 10/28/2016 01/24/2017 Inactive Detrol LA 2 mg capsule,extended release RxNorm: 525387 1 Capsule(s) PO QPM 10/26/2016 10/27/2016 Inactive clonazepam 1 mg tablet RxNorm: 537562 1 Tablet(s) PO QHS AND 1 TAB PO TID PRN 10/20/2016 04/17/2017 Inactive dexamethasone 0.5 mg tablet RxNorm: 113099 TAKE ONE TABLET BY MOUTH ONCE DAILY 10/06/2016 11/04/2016 Inactive allopurinol 100 mg tablet RxNorm: 699084 1 Tablet(s) PO daily 09/30/2016 09/24/2017 Inactive Vesicare 5 mg tablet RxNorm: 488789 1 Tablet(s) PO QPM 09/27/2016 12/12/2016 Inactive spironolactone 25 mg tablet RxNorm: 846547 1 Tablet(s) PO daily 08/06/2016 07/31/2017 Inactive citalopram 40 mg tablet RxNorm: 508793 1 Tablet(s) PO daily 06/28/2016 06/22/2017 Inactive iron ER 159 mg (45 mg iron) tablet,extended release RxNorm: 884592 1 Tablet(s) PO daily 04/27/2016 08/31/2017 Inactive dexamethasone 0.5 mg tablet RxNorm: 904374 1/2 Tablet(s) PO daily 04/27/2016 02/20/2018 Inactive allopurinol 100 mg tablet RxNorm: 639295 1 Tablet(s) PO daily 04/27/2016 09/29/2016 Inactive Plavix 75 mg tablet RxNorm: 482757 1 Tablet(s) PO daily 04/27/2016 02/11/2019 Inactive clonazepam 1 mg tablet RxNorm: 643529 1 Tablet(s) PO QHS and 1 tab po TID prn 04/14/2016 10/07/2016 Inactive allopurinol 100 mg tablet RxNorm: 130866 1 Tablet(s) PO daily 02/17/2016 04/26/2016 Inactive citalopram 20 mg tablet RxNorm: 752217 1 Tablet(s) PO daily 01/20/2016 06/27/2016 Inactive Flomax 0.4 mg capsule RxNorm: 769113 1 Capsule(s) PO QPM 01/20/2016 01/13/2017 Inactive [SAVINGS FOR NON-COVERED DRUGS -- BIN:[id number], PCN: ASPROD1, Group: XXXXX, ID# [id number], Questions: . THIS IS NOT INSURANCE.] pantoprazole 40 mg tablet,delayed release RxNorm: 282543 1 Tablet(s) PO QHS 01/20/2016 01/13/2017 Inactive Colcrys 0.6 mg tablet RxNorm: 221414 1 Tablet(s) PO daily 01/06/2016 03/05/2016 Inactive take daily x 7 days then daily as needed for gout flair colchicine 0.6 mg tablet RxNorm: 915093 1 Tablet(s) PO BID 12/30/2015 01/01/2016 Inactive doxycycline hyclate 100 mg tablet RxNorm: 751677 1 Tablet(s) PO BID 12/19/2015 12/28/2015 Inactive doxycycline hyclate 100 mg tablet RxNorm: 553599 1 Tablet(s) PO BID 12/19/2015 12/18/2015 Inactive allopurinol 100 mg tablet RxNorm: 087550 1 Tablet(s) PO daily 12/16/2015 02/16/2016 Inactive colchicine 0.6 mg tablet RxNorm: 808326 Tablet(s) PO 1.2 mg PO in the morning and 0.6 mg at night for 2 days. 12/16/2015 12/29/2015 Inactive allopurinol 100 mg tablet RxNorm: 360850 1 Tablet(s) PO daily 12/16/2015 12/15/2015 Inactive Protonix 40 mg tablet,delayed release RxNorm: 143434 1 Tablet(s) PO daily 12/16/2015 01/14/2016 Inactive Bactrim DS 800 mg-160 mg tablet RxNorm: 155223 1 Tablet(s) PO BID 12/16/2015 12/18/2015 Inactive colchicine 0.6 mg tablet RxNorm: 569757 Tablet(s) PO 1.2 mg for the first dose and 0.6 mg an hour after 12/15/2015 12/15/2015 Inactive dexamethasone 0.5 mg tablet RxNorm: 799452 1 Tablet(s) PO 12/12/2015 02/09/2016 Inactive Plavix 75 mg tablet RxNorm: 962444 1 Tablet(s) PO every other day 12/12/2015 04/09/2016 Inactive nitroglycerin 0.4 mg sublingual tablet RxNorm: 318612 1 Tablet(s) SL x3 in 15 min as needed 12/12/2015 04/26/2016 Inactive [place] 5 mg-325 mg tablet RxNorm: 625288 1-2 Tablet(s) PO Q6 as needed 12/11/2015 09/26/2016 Inactive clonazepam 1 mg tablet RxNorm: 043408 1 Tablet(s) PO QHS and 1 tab po TID prn 12/11/2015 04/22/2019 Inactive clonazepam 1 mg tablet RxNorm: 460582 1 Tablet(s) PO QHS and 1 tab po TID prn 12/04/2015 12/10/2015 Inactive Flomax 0.4 mg capsule RxNorm: 966780 1 Capsule(s) PO QPM 09/22/2015 01/19/2016 Inactive [SAVINGS FOR NON-COVERED DRUGS -- BIN:[id number], PCN: ASPROD1, Group: XXXXX, ID# [id number], Questions: . THIS IS NOT INSURANCE.] Flomax 0.4 mg capsule RxNorm: 428316 1 Capsule(s) PO QPM 09/16/2015 09/21/2015 Inactive [SAVINGS FOR NON-COVERED DRUGS -- BIN:[id number], PCN: ASPROD1, Group: XXXXX, ID# XXXXXXX, Questions: . THIS IS NOT INSURANCE.] clonazepam 1 mg tablet RxNorm: 718850 1 Tablet(s) PO QHS 08/29/2015 12/03/2015 Inactive coenzyme Q10 10 mg tablet RxNorm: 492631 1 Tablet(s) PO daily 07/30/2015 01/05/2016 Inactive spironolactone 25 mg tablet RxNorm: 023416 1 Tablet(s) PO daily 07/28/2015 07/21/2016 Inactive spironolactone 25 mg tablet RxNorm: 911741 1 Tablet(s) PO daily 07/22/2015 07/27/2015 Inactive clonazepam 1 mg tablet RxNorm: 074546 1 Tablet(s) PO QHS 05/23/2015 08/28/2015 Inactive losartan 25 mg tablet RxNorm: 828500 1 Tablet(s) PO daily 02/19/2015 03/20/2015 Inactive Flonase Allergy Relief 50 mcg/actuation nasal spray,suspension RxNorm: 1 [place] NASAL BID 02/19/2015 04/26/2016 Inactive [SAVINGS FOR NON-COVERED DRUGS -- BIN:[id number], PCN: ASPROD1, Group: XXXXX, ID# [id number], Questions: . THIS IS NOT INSURANCE.] Flomax 0.4 mg capsule RxNorm: 930668 1 Capsule(s) PO QPM 02/19/2015 09/15/2015 Inactive [SAVINGS FOR NON-COVERED DRUGS -- BIN:[id number], PCN: ASPROD1, Group: XXXXX, ID# XXXXXXX, Questions: . THIS IS NOT INSURANCE.] citalopram 20 mg tablet RxNorm: 708396 1 Tablet(s) PO daily 02/19/2015 03/20/2015 Inactive atenolol 25 mg tablet RxNorm: 953473 1 Tablet(s) PO daily 02/19/2015 03/20/2015 Inactive Lipitor 20 mg tablet RxNorm: 592395 1 Tablet(s) PO daily 02/19/2015 03/20/2015 Inactive Flonase Allergy Relief 50 mcg/actuation nasal spray,suspension RxNorm: 3711264 1 [place] NASAL QHS No Start Date Active amiodarone 200 mg tablet RxNorm: 181729 1 Tablet(s) PO TID No Start Date Active Vitamin D3 5,000 unit tablet RxNorm: 254316 1 Tablet(s) PO daily No Start Date Active warfarin 3 mg tablet RxNorm: 226512 1 Tablet(s) PO daily No Start Date Active managed by windlasser Dr Deleon Rachel 180 mg tablet RxNorm: 503066 1 Tablet(s) PO daily No Start Date Active Centrum Complete oral RxNorm: 17134 oral No Start Date Active aspirin 325 mg tablet RxNorm: 641243 1 Tablet(s) PO daily No Start Date Active glucosamine HCl 1,500 mg tablet RxNorm: 755986 1 Tablet(s) with 1200 mg chrondroitin PO daily No Start Date 08/01/2018 Inactive vitamin B complex oral RxNorm: 14612 oral No Start Date 04/22/2019 Inactive Claritin-D 24 Hour oral RxNorm: 897805 oral No Start Date 01/07/2019 Inactive ranitidine 150 mg tablet RxNorm: 308503 1 Tablet(s) PO TID No Start Date 12/11/2015 Inactive Rachel oral RxNorm: 305575 oral No Start Date 04/23/2019 Inactive Lipitor oral RxNorm: 11106 oral No Start Date 04/23/2019 Inactive [place] 5 mg-325 mg tablet RxNorm: 556344 1-2 Tablet(s) PO Q6 as needed No Start Date 12/10/2015 Inactive krill oil oral RxNorm: 78334 oral No Start Date 08/07/2018 Inactive Vitamin B-6 100 mg tablet RxNorm: 514710 1 Tablet(s) PO TID No Start Date 08/31/2017 Inactive spironolactone 25 mg tablet RxNorm: 121192 1 Tablet(s) PO daily No Start Date 07/21/2015 Inactive Vitamin D3 oral RxNorm: 2418 oral No Start Date 02/17/2016 Inactive clonazepam 1 mg tablet RxNorm: 566874 1 Tablet(s) PO daily No Start Date 05/22/2015 Inactive Glucosamine oral RxNorm: 4845 oral No Start Date 04/26/2016 Inactive cetirizine 10 mg tablet RxNorm: 6077269 1 Tablet(s) PO daily No Start Date 01/07/2019 Inactive losartan 50 mg tablet RxNorm: 383287 1 Tablet(s) PO daily No Start Date 05/23/2018 Inactive Plavix 75 mg tablet RxNorm: 557064 1 Tablet(s) PO every other day No Start Date 12/11/2015 Inactive Osteo Bi-Flex oral RxNorm: 6355131 oral No Start Date 09/01/2017 Inactive iron ER 159 mg (45 mg iron) tablet,extended release RxNorm: 013174 1 Tablet(s) PO BID No Start Date 04/26/2016 Inactive amlodipine 5 mg tablet RxNorm: 062493 1 Tablet(s) PO daily No Start Date 01/05/2016 Inactive aspirin 81 mg tablet,delayed release RxNorm: 286489 1 Tablet(s) PO daily No Start Date 05/09/2018 Inactive aspirin 81 mg capsule,delayed release RxNorm: 115398 1 Capsule(s) PO daily No Start Date 04/22/2019 Inactive dexamethasone 0.5 mg tablet RxNorm: 980632 1 Tablet(s) PO No Start Date 12/11/2015 Inactive Vitamin B-12 1,000 mcg tablet RxNorm: 723587 6 Tablet(s) PO every other day No Start Date 06/11/2018 Inactive Aleve 220 mg tablet RxNorm: 509505 Tablet(s) PO as needed No Start Date 04/22/2019 Inactive Vitamin D3 1,000 unit capsule RxNorm: 114439 2 Capsule(s) PO daily No Start Date 04/22/2019 Inactive colchicine 0.6 mg tablet RxNorm: 069605 Tablet(s) PO 1.2 mg for the first dose and 0.6 mg an hour after No Start Date 12/14/2015 Inactive nitroglycerin 0.4 mg sublingual tablet RxNorm: 947617 1 Tablet(s) SL x3 in 15 min as needed No Start Date 12/11/2015 Inactive Fish Oil 1,000 mg capsule RxNorm: 1 Capsule(s) PO daily No Start Date 04/26/2016 Inactive Ecotrin Low Strength 81 mg tablet,enteric coated RxNorm: 1392507 1 Tablet(s) PO daily No Start Date 09/27/2016 Inactive Carafate 1 gram tablet RxNorm: 981393 1 Tablet(s) PO every other day No Start Date 04/22/2019 Inactive Medication Administered Medication Codes Instructions Start Date Status Kenalog 40 mg/mL suspension for injection RxNorm: 2324170 Milliliter 06/12/2018 No longer Active Immunizations Vaccine [...] 30.4 pg 10/20/2018 Cbc With Differential Ord2 [place]% 5.7 % 10/20/2018 Cbc With Differential Ord2 [...] 1.69 K/ul 10/20/2018 Cbc With Differential Ord2 [place] ABS# 0.6 K/ul 10/20/2018 Cbc With Differential Ord2 Eos ABS# 0.0 K/ul 10/20/2018 Cbc With Differential Ord2 Baso ABS# 0.0 K/ul 10/20/2018 Comp Metabolic Elo825 NA 140 mEq/L 10/20/2018 Comp Metabolic Vsp077 K 4.0 mEq/L 10/20/2018 Comp Metabolic Aje959 CL 104 mEq/L 10/20/2018 Comp Metabolic Ngd778 CO2 28.0 mEq/L 10/20/2018 Comp Metabolic Mfz632 ANION GAP 12 10/20/2018 Comp Metabolic Aiu167 GLUCOSE 113 mg/dL 10/20/2018 Comp Metabolic Wjb168 Creat 1.0 mg/dL 10/20/2018 Comp Metabolic Afj299 eGFR 75 ml/min/1.73m2 10/20/2018 Comp Metabolic Sss623 BUN 18 mg/dL 10/20/2018 Comp Metabolic Ebh877 B/C Ratio 17.8 Ratio 10/20/2018 Comp Metabolic Qgi775 CALCIUM 9.8 mg/dL 10/20/2018 Comp Metabolic Zhu943 ALK PHOS 70 U/L 10/20/2018 Comp Metabolic Uls008 AST(SGOT) 15 U/L 10/20/2018 Comp Metabolic Yxy060 ALT(SGPT) 18 U/L 10/20/2018 Comp Metabolic Fsr377 BILI T 1.1 mg/dL 10/20/2018 Comp Metabolic Pfm764 ALBUMIN 4.4 g/dL 10/20/2018 Comp Metabolic Tph354 TPRO 6.9 g/dL 10/20/2018 Comp Metabolic Wba878 GLOB 2.5 g/dL 10/20/2018 Comp Metabolic Nqs586 A/G Ratio 1.7 Ratio 10/20/2018 Comp Metabolic Ysj020 Osmo 282 mOsmo 10/20/2018 Urinalysis Ord28 U-Color [...] 29.0 pg 07/14/2018 Cbc With Differential Ord2 [place]% 7.5 % 07/14/2018 Cbc With Differential Ord2 [...] 1.92 K/ul 07/14/2018 Cbc With Differential Ord2 [place] ABS# 0.4 K/ul 07/14/2018 Cbc With Differential Ord2 Eos ABS# 0.2 K/ul 07/14/2018 Cbc With Differential Ord2 Baso ABS# 0.0 K/ul 07/14/2018 Renal Vus281 NA 140 mEq/L 07/14/2018 Renal Xmr306 K 4.2 mEq/L 07/14/2018 Renal Wnh481 CL 103 mEq/L 07/14/2018 Renal Iwl209 CO2 29.0 mEq/L 07/14/2018 Renal Oio874 ANION GAP 12 07/14/2018 Renal Gzu042 Osmo 280 mOsmo 07/14/2018 Renal Uxw652 GLUCOSE 95 mg/dL 07/14/2018 Renal Ljs494 BUN 15 mg/dL 07/14/2018 Renal Xqg447 Creat 1.2 mg/dL 07/14/2018 Renal Xou142 eGFR 64 ml/min/1.73m2 07/14/2018 Renal Rzb056 B/C Ratio 12.8 Ratio 07/14/2018 Renal Cdq808 CALCIUM 9.6 mg/dL 07/14/2018 Renal Woh227 PHOS 3.2 mg/dL 07/14/2018 Renal Atb145 ALBUMIN 4.4 g/dL 07/14/2018 Magnesium Ord90 Mag [...] 29.7 pg 06/08/2018 Cbc With Differential Ord2 [place]% 8.7 % 06/08/2018 Cbc With Differential Ord2 [...] 2.14 K/ul 06/08/2018 Cbc With Differential Ord2 [place] ABS# 0.5 K/ul 06/08/2018 Cbc With Differential Ord2 Eos ABS# 0.2 K/ul 06/08/2018 Cbc With Differential Ord2 Baso ABS# 0.0 K/ul 06/08/2018 Comp Metabolic Ysg783 NA 139 mEq/L 06/08/2018 Comp Metabolic Jfa377 K 4.6 mEq/L 06/08/2018 Comp Metabolic Mmg555 CL 105 mEq/L 06/08/2018 Comp Metabolic Efb476 CO2 26.0 mEq/L 06/08/2018 Comp Metabolic Vhn403 ANION GAP 13 06/08/2018 Comp Metabolic Nwp439 GLUCOSE 95 mg/dL 06/08/2018 Comp Metabolic Ylt079 Creat 1.2 mg/dL 06/08/2018 Comp Metabolic Yhi845 eGFR 59 ml/min/1.73m2 06/08/2018 Comp Metabolic Vbj992 BUN 12 mg/dL 06/08/2018 Comp Metabolic Gje189 B/C Ratio 9.7 Ratio 06/08/2018 Comp Metabolic Ygs564 CALCIUM 9.9 mg/dL 06/08/2018 Comp Metabolic Tpi961 ALK PHOS 70 U/L 06/08/2018 Comp Metabolic Rcu408 AST(SGOT) 21 U/L 06/08/2018 Comp Metabolic Aby336 ALT(SGPT) 20 U/L 06/08/2018 Comp Metabolic Mzp082 BILI T 1.0 mg/dL 06/08/2018 Comp Metabolic Uso375 ALBUMIN 4.5 g/dL 06/08/2018 Comp Metabolic Njt991 TPRO 7.2 g/dL 06/08/2018 Comp Metabolic Bte036 GLOB 2.8 g/dL 06/08/2018 Comp Metabolic Cpi651 A/G Ratio 1.6 Ratio 06/08/2018 Comp Metabolic Qck682 Osmo 277 mOsmo 06/08/2018 Cbc With Differential [...] 30.6 pg 05/10/2018 Cbc With Differential Ord2 [place]% 6.5 % 05/10/2018 Cbc With Differential Ord2 [...] 1.94 K/ul 05/10/2018 Cbc With Differential Ord2 [place] ABS# 0.4 K/ul 05/10/2018 Cbc With Differential [...] Ord30 C/HDL 4.2 Ratio 01/26/2018 Comp Metabolic Xac811 NA 138 mEq/L 01/26/2018 Comp Metabolic Bmr353 K 4.2 mEq/L 01/26/2018 Comp Metabolic Gls727 CL 105 mEq/L 01/26/2018 Comp Metabolic Xzs070 CO2 23.0 mEq/L 01/26/2018 Comp Metabolic Qpm573 ANION GAP 14 01/26/2018 Comp Metabolic Msl242 GLUCOSE 89 mg/dL 01/26/2018 Comp Metabolic Nva249 Creat 1.1 mg/dL 01/26/2018 Comp Metabolic Plg592 eGFR 70 ml/min/1.73m2 01/26/2018 Comp Metabolic Dup936 BUN 18 mg/dL 01/26/2018 Comp Metabolic Sbn200 B/C Ratio 16.8 Ratio 01/26/2018 Comp Metabolic Sts160 CALCIUM 9.2 mg/dL 01/26/2018 Comp Metabolic Zwt512 ALK PHOS 67 U/L 01/26/2018 Comp Metabolic Zox777 AST(SGOT) 31 U/L 01/26/2018 Comp Metabolic Whd759 ALT(SGPT) 23 U/L 01/26/2018 Comp Metabolic Tqk303 BILI T 1.7 mg/dL 01/26/2018 Comp Metabolic Vpc628 ALBUMIN 3.9 g/dL 01/26/2018 Comp Metabolic Tua478 TPRO 6.7 g/dL 01/26/2018 Comp Metabolic Jvv813 GLOB 2.8 g/dL 01/26/2018 Comp Metabolic Nif497 A/G Ratio 1.4 Ratio 01/26/2018 Comp Metabolic Ngq899 Osmo 277 mOsmo 01/26/2018 Cbc With Differential [...] 30.7 pg 01/26/2018 Cbc With Differential Ord2 [place]% 7.1 % 01/26/2018 Cbc With Differential Ord2 [...] 2.40 K/ul 01/26/2018 Cbc With Differential Ord2 [place] ABS# 0.5 K/ul 01/26/2018 Cbc With Differential Ord2 Eos ABS# 0.2 K/ul 01/26/2018 Cbc With Differential Ord2 Baso ABS# 0.0 K/ul 01/26/2018 Tsh Ord6 TSH (3rd IS) 1.81 uIU/mL 01/26/2018 Testosterone Xzi730 Testo 370.3 ng/dL 01/26/2018 C A/B FLU 0851600 Influenza A Scr Negative 12/08/2017 C A/B FLU [id number] Influenza B Scr Negative 12/08/2017 C A/B FLU [id number] Influenza Intrp B AG:PRID:PT:NOSE:NOM:IF See Footnote 12/08/2017 [...] 30.8 pg 04/11/2017 Cbc With Differential Ord2 [place]% 8.1 % 04/11/2017 Cbc With Differential Ord2 [...] 1.91 K/ul 04/11/2017 Cbc With Differential Ord2 [place] ABS# 0.5 K/ul 04/11/2017 Cbc With Differential Ord2 Eos ABS# 0.2 K/ul 04/11/2017 Cbc With Differential Ord2 Baso ABS# 0.0 K/ul 04/11/2017 Comp Metabolic Lty726 NA 140 mEq/L 04/11/2017 Comp Metabolic Fzk668 K 4.1 mEq/L 04/11/2017 Comp Metabolic Nkq030 CL 105 mEq/L 04/11/2017 Comp Metabolic Hht169 CO2 26.0 mEq/L 04/11/2017 Comp Metabolic Kxp374 ANION GAP 13 04/11/2017 Comp Metabolic Dat905 GLUCOSE 88 mg/dL 04/11/2017 Comp Metabolic Rbg165 Creat 1.1 mg/dL 04/11/2017 Comp Metabolic Ylo815 eGFR 66 ml/min/1.73m2 04/11/2017 Comp Metabolic Mdn835 BUN 18 mg/dL 04/11/2017 Comp Metabolic Ort712 B/C Ratio 15.9 Ratio 04/11/2017 Comp Metabolic Cfp234 CALCIUM 9.0 mg/dL 04/11/2017 Comp Metabolic Zwd211 ALK PHOS 72 U/L 04/11/2017 Comp Metabolic Zae736 AST(SGOT) 22 U/L 04/11/2017 Comp Metabolic Nks795 ALT(SGPT) 26 U/L 04/11/2017 Comp Metabolic Nne232 BILI T 1.0 mg/dL 04/11/2017 Comp Metabolic Slf209 ALBUMIN 4.0 g/dL 04/11/2017 Comp Metabolic Ctg929 TPRO 6.4 g/dL 04/11/2017 Comp Metabolic Npj726 GLOB 2.4 g/dL 04/11/2017 Comp Metabolic Nkc050 A/G Ratio 1.6 Ratio 04/11/2017 Comp Metabolic Eab026 Osmo 281 mOsmo 04/11/2017 Vitamin D 25 Oh Sou8440 VITAMIN D, 25 HYDROXY 65.52 ng/mL 05/19/2016 [...] 28.5 pg 05/18/2016 Cbc With Differential Ord2 [place]% 7.2 % 05/18/2016 Cbc With Differential Ord2 [...] 1.80 K/ul 05/18/2016 Cbc With Differential Ord2 [place] ABS# 0.4 K/ul 05/18/2016 Cbc With Differential Ord2 Eos ABS# 0.2 K/ul 05/18/2016 Cbc With Differential Ord2 Baso ABS# 0.0 K/ul 05/18/2016 Magnesium Ord90 Mag 2.0 mg/dL 05/18/2016 Renal Xwe812 NA 139 mEq/L 05/18/2016 Renal Gic691 K 4.0 mEq/L 05/18/2016 Renal Quq238 CL 104 mEq/L 05/18/2016 Renal Msu974 CO2 27.0 mEq/L 05/18/2016 Renal For794 ANION GAP 12 05/18/2016 Renal Oxm492 Osmo 279 mOsmo 05/18/2016 Renal Psw893 GLUCOSE 91 mg/dL 05/18/2016 Renal Dyw728 BUN 18 mg/dL 05/18/2016 Renal Qkf856 Creat 1.3 mg/dL 05/18/2016 Renal Wpz540 eGFR 59 ml/min/1.73m2 05/18/2016 Renal Vzz924 B/C Ratio 14.3 Ratio 05/18/2016 Renal Ruh537 CALCIUM 9.3 mg/dL 05/18/2016 Renal Mhe275 PHOS 3.2 mg/dL 05/18/2016 Renal Oih287 ALBUMIN 4.2 g/dL 05/18/2016 Random Urine Protein/Creatinine Ratio Ijb5446 U Prot 15.0 mg/dl 05/18/2016 Random Urine Protein/Creatinine Ratio Rko6568 U CREAT 141.0 mg/dL 05/18/2016 Random Urine Protein/Creatinine Ratio Mpf9898 R MTP/Creat Ratio 0.11 05/18/2016 Urinalysis Ord28 [...] 28.5 pg 02/19/2016 Cbc With Differential Ord2 [place]% 9.5 % 02/19/2016 Cbc With Differential Ord2 [...] 1.91 K/ul 02/19/2016 Cbc With Differential Ord2 [place] ABS# 0.5 K/ul 02/19/2016 Cbc With Differential Ord2 Eos ABS# 0.2 K/ul 02/19/2016 Cbc With Differential Ord2 Baso ABS# 0.0 K/ul 02/19/2016 Cbc With Differential Ord2 New Analyzer Notice Please note new ref ranges starting 10-29-2015 due to implemntation of new five part differential hematolgy analyzer. 02/19/2016 Tsh Ord6 hTSH II 2.10 uIU/mL 02/19/2016 Comp Metabolic Dng111 NA 138 mEq/L 02/19/2016 Comp Metabolic Ewk979 K 3.8 mEq/L 02/19/2016 Comp Metabolic Pat912 CL 103 mEq/L 02/19/2016 Comp Metabolic Eci873 CO2 28.0 mEq/L 02/19/2016 Comp Metabolic Jmi589 ANION GAP 11 02/19/2016 Comp Metabolic Hya802 GLUCOSE 94 mg/dL 02/19/2016 Comp Metabolic Rih816 Creat 1.0 mg/dL 02/19/2016 Comp Metabolic Mbs955 eGFR 75 ml/min/1.73m2 02/19/2016 Comp Metabolic Cry086 BUN 18 mg/dL 02/19/2016 Comp Metabolic Lzm840 B/C Ratio 17.6 Ratio 02/19/2016 Comp Metabolic Jsz519 CALCIUM 9.6 mg/dL 02/19/2016 Comp Metabolic Dch342 ALK PHOS 93 U/L 02/19/2016 Comp Metabolic Cma245 AST(SGOT) 23 U/L 02/19/2016 Comp Metabolic Jth033 ALT(SGPT) 19 U/L 02/19/2016 Comp Metabolic Bku333 BILI T 0.8 mg/dL 02/19/2016 Comp Metabolic Lnr091 ALBUMIN 4.1 g/dL 02/19/2016 Comp Metabolic Biy115 TPRO 6.8 g/dL 02/19/2016 Comp Metabolic Vzl031 GLOB 2.7 g/dL 02/19/2016 Comp Metabolic Bmu973 A/G Ratio 1.5 Ratio 02/19/2016 Comp Metabolic Spt863 Osmo 277 mOsmo 02/19/2016 Uric Acid Ord77 Uric A 6.0 mg/dL 02/19/2016 Total Psa Ord10 PSA 0.82 ng/mL 02/19/2016 Comp Metabolic Qez594 NA 140 mEq/L 12/16/2015 Comp Metabolic Mzc234 K 4.0 mEq/L 12/16/2015 Comp Metabolic Yae591 CL 105 mEq/L 12/16/2015 Comp Metabolic Vjt341 CO2 24.0 mEq/L 12/16/2015 Comp Metabolic Eqw780 ANION GAP 15 12/16/2015 Comp Metabolic Dti893 GLUCOSE 85 mg/dL 12/16/2015 Comp Metabolic Man310 Creat 1.2 mg/dL 12/16/2015 Comp Metabolic Kbm709 eGFR 65 ml/min/1.73m2 12/16/2015 Comp Metabolic Sfp799 BUN 14 mg/dL 12/16/2015 Comp Metabolic Chy604 B/C Ratio 12.1 Ratio 12/16/2015 Comp Metabolic Grz574 CALCIUM 9.1 mg/dL 12/16/2015 Comp Metabolic Erk151 ALK PHOS 162 U/L 12/16/2015 Comp Metabolic Qkw270 AST(SGOT) 14 U/L 12/16/2015 Comp Metabolic Hbm293 ALT(SGPT) 17 U/L 12/16/2015 Comp Metabolic Ojb011 BILI T 1.0 mg/dL 12/16/2015 Comp Metabolic Osi229 ALBUMIN 3.4 g/dL 12/16/2015 Comp Metabolic Nrg051 TPRO 6.2 g/dL 12/16/2015 Comp Metabolic Amv999 GLOB 2.9 g/dL 12/16/2015 Comp Metabolic Oho710 A/G Ratio 1.2 Ratio 12/16/2015 Comp Metabolic Usc177 Osmo 279 mOsmo 12/16/2015 Uric Acid Ord77 [...] 29.9 % 12/16/2015 Cbc With Differential Ord2 [place]% 7.5 % 12/16/2015 Cbc With Differential Ord2 [...] 1.52 K/ul 12/16/2015 Cbc With Differential Ord2 [place] ABS# 0.4 K/ul 12/16/2015 Cbc With Differential [...] C/HDL 4.0 Ratio 07/21/2015 Urine Protein 24Hr Lja303 U Prot 5.1 mg/dl 05/16/2015 Urine Protein 24Hr Pve520 U Prot24 71.5 mg/24hr 05/16/2015 Total Volume Urine Quk751 TV/24hr 1400 ml 05/16/2015 Total Psa Ord10 PSA 0.70 ng/mL 05/15/2015 Renal Hga983 NA 135 mEq/L 05/15/2015 Renal Uve829 K 3.9 mEq/L 05/15/2015 Renal Dqu203 CL 101 mEq/L 05/15/2015 Renal Acm646 CO2 27.0 mEq/L 05/15/2015 Renal Iad582 ANION GAP 11 05/15/2015 Renal Ufz891 Osmo 274 mOsmo 05/15/2015 Renal Qfh664 GLUCOSE 132 mg/dL 05/15/2015 Renal Mnc179 BUN 19 mg/dL 05/15/2015 Renal Gwi581 Creat 1.1 mg/dL 05/15/2015 Renal Smy415 eGFR 67 ml/min/1.73m2 05/15/2015 Renal Otc394 B/C Ratio 17.0 Ratio 05/15/2015 Renal Kie826 CALCIUM 9.6 mg/dL 05/15/2015 Renal Ynp680 PHOS 3.0 mg/dL 05/15/2015 Renal Dez739 ALBUMIN 4.3 g/dL 05/15/2015 Cbc With Differential [...] General 1995 Cardiovascular auscultation of heart Overall: normal heart sounds 12/25/2018 None Full Exam - General 1994 Cardiovascular auscultation of heart Systolic murmur: midsystolic 12/25/2018 None Full Exam - General 1995 Neurologic cranial nerves Overall: crainial nerves 2 [...] tympanosclerosis 09/29/2017 None Full Exam - General 1995 Ears/Nose/Throat lips/teeth/gingiva Overall: benign lips 09/29/2017 None Full Exam - General 1994 Ears/Nose/Throat lips/teeth/gingiva Overall: normal dentition 09/29/2017 None Full Exam - General 1995 Ears/Nose/Throat [...] dentition 04/26/2017 None Full Exam - General 1995 Ears/Nose/Throat oral cavity/pharynx/larynx Overall: oral mucosa clear 04/26/2017 None Full Exam - General 1995 Ears/Nose/Throat oral cavity/pharynx/larynx Overall: oropharyngeal mucosa clear 04/26/2017 None Full Exam - General 1995 Ears/Nose/Throat oral cavity/pharynx/larynx Overall: hypopharynx benign 04/26/2017 None Full Exam - General 1995 Ears/Nose/Throat oral cavity/pharynx/larynx Overall: no masses 04/26/2017 [...] Codes Date URINALYSIS NONAUTO W/O SCOPE CPT-4: 49720 05/23/2019 PPPS, SUBSEQ VISIT CPT- 4: G0439 08/10/2018 ADMIN INFLUENZA VIRUS VAC CPT-4: G0008 07/05/2018 FLU VACC PRSV FREE INC ANTIG Formatting Model/CDA Sections, Assigned to/Sharee Raimrez CPT-4: 04246Ysiukfy 07/05/2018 THER/PROPH/DIAG INJ SC/IM CPT-4: 16929 06/12/2018 TRIAMCINOLONE ACET INJ NOS CPT-4: J3301 06/12/2018 PPPS, SUBSEQ VISIT CPT- 4: G0439 08/03/2017 ADMIN INFLUENZA VIRUS VAC CPT-4: G0008 06/28/2016 FLU VACC PRSV FREE INC ANTIG CPT-4: 63027 06/28/2016 TENIVAC TD VACCINE NO PRSRV 7/> IM CPT-4: 92915 06/28/2016 OCCULT BLOOD FECES CPT- 4: 65383 02/19/2015 Vital Signs Date Vital 05/21/2019 Blood Pressure 1: 120/78 Code: 8480-6 Heart Rate 1: 80 bpm Height: SpO2: 98% Weight: 04/23/2019 Blood Pressure 1: 140/70 Code: 8480-6 BMI: 28.5 Code: 60913-8 Heart Rate 1: 58 bpm Height: 6' SpO2: 92% Weight: 210 lbs 03/05/2019 Blood Pressure 1: 128/76 Code: 8480-6 BMI: 28.5 Code: 84208-5 Heart Rate 1: 85 bpm Height: 6' SpO2: 96% Weight: 210 lbs 02/12/2019 Blood Pressure 1: 110/70 Code: 8480-6 BMI: 28.5 Code: 94854-8 Heart Rate 1: 70 bpm Height: 6' SpO2: 93% Weight: 210 lbs 01/29/2019 Blood Pressure 1: 11078 Code: 8480-6 BMI: 28.5 Code: 90427-5 Heart Rate 1: 98 bpm Height: 6' SpO2: 90% Weight: 210 lbs 2019 Blood Pressure 1: 136/74 Code: 8480-6 BMI: 28.6 Code: 15792-9 Heart Rate 1: 97 bpm Height: 6' SpO2: 94% Weight: 211 lbs 01/08/2019 Blood Pressure 1: 128/86 Code: 8480-6 BMI: 28.6 Code: 66883-3 Heart Rate 1: 96 bpm Height: 6' SpO2: 97% Weight: 211 lbs 12/25/2018 Blood Pressure 1: 112/62 Code: 8480-6 BMI: 28.6 Code: 93179-7 Heart Rate 1: 76 bpm Height: 6' SpO2: 96% Weight: 211 lbs 12/13/2018 Blood Pressure 1: 114/78 Code: 8480-6 BMI: 29.4 Code: 23883-9 Heart Rate 1: 73 bpm Height: 6' SpO2: 93% Weight: 217 lbs 11/27/2018 Blood Pressure 1: 110/70 Code: 8480-6 BMI: 28.5 Code: 68335-2 Heart Rate 1: 90 bpm Height: 6' SpO2: 95% Temperature: 36.8 (C) / 98.2 (F) Weight: 210 lbs 8 oz 09/26/2018 Blood Pressure 1: 130/80 Code: 8480-6 BMI: 29.6 Code: 36057-7 Heart Rate 1: 98 bpm Height: 6' SpO2: 93% Weight: 218 lbs 08/10/2018 BMI: 29.4 Code: 50356-4 Height: 6' Weight: 217 lbs 07/26/2018 Blood Pressure 1: 116/72 Code: 8480-6 BMI: 29.4 Code: 66693-1 Heart Rate 1: 102 bpm Height: 6' SpO2: 96% Weight: 217 lbs 07/05/2018 Blood Pressure 1: 132/72 Code: 8480-6 Heart Rate 1: 60 bpm SpO2: 95% 06/12/2018 Blood Pressure 1: 120/78 Code: 8480-6 BMI: 29.6 Code: 17232-2 Heart Rate 1: 103 bpm Height: 6' SpO2: 96% Weight: 218 lbs 05/10/2018 Blood Pressure 1: 114/68 Code: 8480-6 BMI: 29.4 Code: 62798-9 Heart Rate 1: 92 bpm Height: 6' SpO2: 97% Weight: 217 lbs 03/27/2018 Blood Pressure 1: 126/74 Code: 8480-6 BMI: 30.1 Code: 89578-2 Heart Rate 1: 103 bpm Height: 6' SpO2: 96% Weight: 222 lbs 01/25/2018 Blood Pressure 1: 122/70 Code: 8480-6 Blood Pressure 2: 126/73 Code: 8480-6 Heart Rate 1: 63 bpm SpO2: 94% 01/24/2018 Blood Pressure 1: 110/72 Code: 8480-6 BMI: 29.7 Code: 04210-9 Heart Rate 1: 88 bpm Height: 6' SpO2: 95% Weight: 219 lbs 12/08/2017 Blood Pressure 1: 120/68 Code: 8480-6 BMI: 30.0 Code: 68521-5 Heart Rate 1: 91 bpm Height: 6' SpO2: 96% Temperature: 36.7 (C) / 98.1 (F) Weight: 221 lbs 10/27/2017 Blood Pressure 1: 124/76 Code: 8480-6 BMI: 30.1 Code: 11249-9 Heart Rate 1: 69 bpm Height: 6' SpO2: 95% Weight: 222 lbs 09/29/2017 Blood Pressure 1: 118/66 Code: 8480-6 BMI: 29.9 Code: 05970-9 Heart Rate 1: 81 bpm Height: 6' SpO2: 95% Weight: 220 lbs 8 oz 09/01/2017 Blood Pressure 1: 122/82 Code: 8480-6 BMI: 29.6 Code: 16437-6 Heart Rate 1: 75 bpm Height: 6' SpO2: 97% Weight: 218 lbs 08/03/2017 Blood Pressure 1: 120/68 Code: 8480-6 Heart Rate 1: 68 bpm Height: 6' SpO2: 94% Waist Measure (cm): 97 cm 04/26/2017 Blood Pressure 1: 122/72 Code: 8480-6 BMI: 29.4 Code: 97434-2 Heart Rate 1: 85 bpm Height: 6' SpO2: 92% Weight: 217 lbs 01/25/2017 Blood Pressure 1: 118/78 Code: 8480-6 BMI: 29.4 Code: 50225-2 Heart Rate 1: 72 bpm Height: 6' SpO2: 94% Temperature: 36.9 (C) / 98.5 (F) Weight: 217 lbs 10/26/2016 Blood Pressure 1: 152/86 Code: 8480-6 BMI: 29.7 Code: 32349-8 Heart Rate 1: 58 bpm Height: 6' Weight: 219 lbs 09/27/2016 Blood Pressure 1: 138/80 Code: 8480-6 BMI: 29.4 Code: 98719-1 Heart Rate 1: 52 bpm Height: 6' SpO2: 98% Weight: 217 lbs 06/28/2016 Blood Pressure 1: 128/86 Code: 8480-6 BMI: 29.6 Code: 48420-1 Heart Rate 1: 69 bpm Height: 6' SpO2: 93% Weight: 218 lbs 04/27/2016 Blood Pressure 1: 118/82 Code: 8480-6 BMI: 29.3 Code: 18853-3 Heart Rate 1: 85 bpm Height: 6' SpO2: 98% Weight: 216 lbs 02/17/2016 Blood Pressure 1: 132/80 Code: 8480-6 BMI: 28.8 Code: 20605-7 Heart Rate 1: 94 bpm Height: 6' SpO2: 98% Weight: 212 lbs 01/20/2016 Blood Pressure 1: 120/70 Code: 8480-6 BMI: 29.7 Code: 64353-9 Heart Rate 1: 87 bpm Height: 6' SpO2: 92% Weight: 219 lbs 01/06/2016 Blood Pressure 1: 122/88 Code: 8480-6 BMI: 28.8 Code: 79447-3 Heart Rate 1: 83 bpm Height: 6' SpO2: 97% Weight: 212 lbs 12/16/2015 Blood Pressure 1: 98/62 Code: 8480-6 Heart Rate 1: 62 bpm Height: 6' SpO2: 90% Weight: 11/27/2015 Blood Pressure 1: 90/64 Code: 8480-6 Blood Pressure 1: 110/80 Code: 8480-6 Heart Rate 1: 91 bpm Height: 6' SpO2: 92% Weight: 07/30/2015 Blood Pressure 1: 112/82 Code: 8480-6 BMI: 30.5 Code: 30421-4 Heart Rate 1: 82 bpm Height: 6' SpO2: 92% Weight: 225 lbs 06/09/2015 Blood Pressure 1: 130/76 Code: 8480-6 BMI: 31.1 Code: 27786-5 Heart Rate 1: 65 bpm Height: 6' SpO2: 96% Weight: 229 lbs 04/29/2015 Blood Pressure 1: 118/78 Code: 8480-6 BMI: 30.7 Code: 50386-5 Heart Rate 1: 70 bpm Height: 6' Weight: 226 lbs 02/19/2015 Blood Pressure 1: 118/70 Code: 8480-6 BMI: 29.7 Code: 17892-5 Heart Rate 1: 68 bpm Height: 6' [...] III Diagnosis: Epistaxis[ICD10: R04.0] Mady Butcher MD, [facility] CPT-4: 19028 05/21/2019 ([id number]) 09984 EST. PATIENT, LEVEL IV Diagnosis: Essential (primary) hypertension[ICD10: I10] Diagnosis: Major depressive disorder, recurrent, mild[ICD10: F33.0] Diagnosis: Muscle weakness (generalized)[ICD10: M62.81] Diagnosis: Mixed hyperlipidemia[ICD10: E78.2] Lesley Butcher MD, [facility] CPT- 4: 31788 04/23/2019 ([id number]) 06974 EST. PATIENT, LEVEL IV Diagnosis: Essential (primary) hypertension[ICD10: I10] Diagnosis: Unsteadiness on feet[ICD10: R26.81] Diagnosis: Abdominal aortic aneurysm, without rupture[ICD10: I71.4] Lesley Butcher MD, [facility] CPT-4: 58436 03/05/2019 ([id number]) 88907 EST. PATIENT, LEVEL IV Diagnosis: Paroxysmal atrial fibrillation[ICD10: I48.0] Diagnosis: Essential (primary) hypertension[ICD10: I10] Diagnosis: Frequency of micturition[ICD10: R35.0] Merline Butcher MD, [facility] CPT-4: 17453 02/12/2019 ([id number]) 79215 EST. PATIENT, LEVEL V Diagnosis: Essential (primary) hypertension[ICD10: I10] Diagnosis: Dizziness and giddiness[ICD10: R42] Diagnosis: Vertigo of central origin, right ear[ICD10: H81.41] Lesley Butcher MD, [facility] CPT-4: 42831 01/29/2019 28257 EST. PATIENT, LEVEL III Diagnosis: Pleurodynia[ICD10: R07.81] Mady Butcher MD, [facility] CPT-4: 06752 2019 ([id number]) 00649 EST. PATIENT, LEVEL III Diagnosis: Other allergic rhinitis[ICD10: J30.89] Merline Butcher MD, [facility] CPT-4: 10884 01/08/2019 80929 EST. PATIENT, LEVEL IV Diagnosis: Other fatigue[ICD10: R53.83] Diagnosis: Obstructive sleep apnea (adult) (pediatric)[ICD10: G47.33] Diagnosis: Other malaise[ICD10: R53.81] Mady Butcher MD, [facility] CPT-4: 54880 12/25/2018 ([id number]) 13119 EST. PATIENT, LEVEL IV Diagnosis: Shortness of breath[ICD10: R06.02] Diagnosis: Other fatigue[ICD10: R53.83] Diagnosis: Obstructive sleep apnea (adult) (pediatric)[ICD10: G47.33] Diagnosis: Other malaise[ICD10: R53.81] Lesley Butcher MD, [facility] CPT-4: 00894 12/13/2018 ([id number]) 96626 EST. PATIENT, LEVEL IV Diagnosis: Shortness of breath[ICD10: R06.02] Diagnosis: Dizziness and giddiness[ICD10: R42] Diagnosis: Other fatigue[ICD10: R53.83] Diagnosis: Essential (primary) hypertension[ICD10: I10] Diagnosis: Muscle weakness (generalized)[ICD10: M62.81] Merline Butcher MD, [facility] CPT-4: 56847 11/27/2018 ([id number]) 42860 EST. PATIENT, LEVEL IV Diagnosis: Essential (primary) hypertension[ICD10: I10] Diagnosis: Vertigo of central origin, right ear[ICD10: H81.41] Diagnosis: Low back pain[ICD10: M54.5] Lesley Butcher MD, [facility] CPT-4: 38731 09/26/2018 ([id number]) 60358 EST. PATIENT, LEVEL III Diagnosis: Dizziness and giddiness[ICD10: R42] Diagnosis: Vertigo of central origin, right ear[ICD10: H81.41] Diagnosis: Essential (primary) hypertension[ICD10: I10] Lesley Butcher MD, [facility] CPT-4: 04267 07/26/2018 ([id number]) 21949 EST. PATIENT, LEVEL III Diagnosis: Essential (primary) hypertension[ICD10: I10] Lesley Butcher MD [facility] CPT-4: 18887 06/12/2018 ([id number]) 77297 EST. PATIENT, LEVEL IV Diagnosis: Other iron deficiency anemias[ICD10: D50.8] Diagnosis: Weakness[ICD10: R53.1] Diagnosis: Diverticulosis of large intestine without perforation or abscess with bleeding[ICD10: K57.31] Lesley Butcher MD, [facility] CPT-4: 86912 05/10/2018 ([id number]) 86969 EST. PATIENT, LEVEL IV Diagnosis: Essential (primary) hypertension[ICD10: I10] Diagnosis: Major depressive disorder, recurrent, mild[ICD10: F33.0] Diagnosis: Sensorineural hearing loss, bilateral[ICD10: H90.3] Lesley Butcher MD, [facility] CPT-4: 52513 03/27/2018 ([id number]) Miscellaneous no charge Diagnosis: Essential (primary) hypertension[ICD10: I10] Mady Butcher MD, [facility] CPT-4: 61636 01/25/2018 ([id number]) 77673 EST. PATIENT, LEVEL IV Diagnosis: Essential (primary) hypertension[ICD10: I10] Diagnosis: Sensorineural hearing loss, bilateral[ICD10: H90.3] Diagnosis: Mixed hyperlipidemia[ICD10: E78.2] Diagnosis: Major depressive disorder, recurrent, mild[ICD10: F33.0] Lesley Butcher MD, [facility] CPT-4: 78852 01/24/2018 06238 EST. PATIENT, LEVEL IV Diagnosis: Other malaise[ICD10: R53.81] Diagnosis: Fever, unspecified[ICD10: R50.9] Mady Butcher MD, [facility] CPT-4: 64859 12/08/2017 ([id number]) 84105 EST. PATIENT, LEVEL III Diagnosis: Essential (primary) hypertension[ICD10: I10] Lesley Butcher MD [facility] CPT-4: 09018 10/27/2017 ([id number]) 25262 EST. PATIENT, LEVEL III Diagnosis: Benign prostatic hyperplasia with lower urinary tract symptoms[ICD10: N40.1] Diagnosis: Dysphagia, pharyngeal phase[ICD10: R13.13] Lesley Butcher MD [facility] CPT-4: 14237 09/29/2017 ([id number]) 28208 EST. PATIENT, LEVEL IV Diagnosis: Essential (primary) hypertension[ICD10: I10] Diagnosis: Major depressive disorder, recurrent, mild[ICD10: F33.0] Diagnosis: Sensorineural hearing loss, bilateral[ICD10: H90.3] Lesley Butcher MD, [facility] CPT-4: 13097 09/01/2017 ([id number]) 14758 EST. PATIENT, LEVEL IV Diagnosis: Essential (primary) hypertension[ICD10: I10] Diagnosis: Major depressive disorder, recurrent, mild[ICD10: F33.0] Diagnosis: Mixed hyperlipidemia[ICD10: E78.2] Lesley Butcher MD, [facility] CPT- 4: 60689 04/26/2017 ([id number]) 47988 EST. PATIENT, LEVEL IV Diagnosis: Essential (primary) hypertension[ICD10: I10] Diagnosis: Major depressive disorder, recurrent, mild[ICD10: F33.0] Diagnosis: Urge incontinence[ICD10: N39.41] Lesley Butcher MD [facility] CPT-4: 60731 01/25/2017 ([id number]) 95921 EST. PATIENT, LEVEL IV Diagnosis: Essential (primary) hypertension[ICD10: I10] Diagnosis: Major depressive disorder, recurrent, mild[ICD10: F33.0] Diagnosis: Urge incontinence[ICD10: N39.41] Lesley Butcher MD, [facility] CPT-4: 40450 10/26/2016 ([id number]) 62621 EST. PATIENT, LEVEL III Diagnosis: Essential (primary) hypertension[ICD10: I10] Diagnosis: Major depressive disorder, recurrent, mild[ICD10: F33.0] Diagnosis: Urge incontinence[ICD10: N39.41] Lesley Butcher MD, [facility] CPT-4: 62561 09/27/2016 ([id number]) 24435 EST. PATIENT, LEVEL IV Diagnosis: Essential (primary) hypertension[ICD10: I10] Diagnosis: Encounter for immunization[ICD10: Z23] Diagnosis: Laceration without foreign body of left forearm, initial encounter[ICD10: S51.812A] Diagnosis: Laceration without foreign body of right forearm, initial encounter[ICD10: S51.811A] Diagnosis: Major depressive disorder, recurrent, mild[ICD10: F33.0] Lesley Butcher MD, [facility] CPT-4: 52656 06/28/2016 ([id number]) 30829 EST. 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 CPT-4: 92772 04/27/2016 ([id number]) 66132 EST. 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 CPT- 4: 71236 02/17/2016 ([id number] 86316 EST. 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 CPT-4: 65658 01/20/2016 38136 EST. 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 CPT-4: 04056 01/06/2016 30150 EST. PATIENT, LEVEL IV Diagnosis: Weakness[ICD10: R53.1] Diagnosis: Gout, unspecified[ICD10: M10.9] Diagnosis: Hypotension, unspecified[ICD10: I95.9] Lesley Butcher MD, [facility] CPT-4: 30834 12/16/2015 ([id number]) Patient admitted to the hospital from clinic (NO CHARGE) Diagnosis: Hypoxemia[ICD10: R09.02] Diagnosis: Weakness[ICD10: R53.1] Diagnosis: Dyspnea, unspecified[ICD10: R06.00] Mady Butcher MD, [facility] CPT- 4: 93035S 11/27/2015 ([id number]) 59749 EST. PATIENT, LEVEL III Diagnosis: Essential (primary) hypertension[ICD10: I10] Diagnosis: Gastro-esophageal reflux disease without esophagitis[ICD10: K21.9] Lesley Butcher MD, [facility] CPT-4: 61390 07/30/2015 ([id number]) 85522 EST. PATIENT, LEVEL III Diagnosis: ESSENTIAL HYPERTENSION[ICD9: 401.9] Merline Butcher MD, [facility] CPT-4: 50063 06/09/2015 ([id number]) 30510 EST. PATIENT, LEVEL III Diagnosis: ESSENTIAL HYPERTENSION[ICD9: 401.9] Lesley Butcher MD, [facility] CPT- 4: 40117 04/29/2015 ([id number]) OFFICE/OUTPATIENT VISIT NEW Diagnosis: ESSENTIAL HYPERTENSION[ICD9: 401.9] Diagnosis: DEPRESSIVE DISORDER NEC[ICD9: 311] Diagnosis: Enlarged prostate[ICD9: 600.00] Diagnosis: Nasal inflammation due to allergen[ICD9: 477.9] Lesley Butcher MD, [facility] CPT-4: 55795 02/19/2015 Plan of Care Planned Activity Notes [...] or concerns. 05/21/2019 Appointment: Mady Dunne WPtel: [facility]9 [facility] (30 min) Complex 05/21/2019 Patient Education: Patient Medication Summary Completed 05/21/2019 Appointment: Lesley Butcher WPtel: [facility]6 [facility] (15 min) Moderate 05/07/2019 Visit Plan: Hypertension [...] aneurysm - defer to Dr. Valentine at [facility]. 04/23/2019 Appointment: Lesley Butcher WPtel: [facility]8 [facility] (15 min) Moderate 04/23/2019 Appointment: Merline Rose WPtel: [facility]3 [phone] [place] (30 min) Complex 04/23/2019 Patient Education: [...] and discussion. 03/05/2019 [phone] (15 min) Moderate 03/05/2019 Patient Education: Patient Medication Summary Completed 03/05/2019 Visit Plan: Afib-new diagnosis with cardiology -Dr Deleon -now on coumadin-will return to [place] in 2 weeks to discuss watchman device DUJ-vpzevvnpfj-ny changes Urinary frequency and urgency -check UA -patient unable to void at appt -will bring back sample 02/12/2019 [phone] (30 min) Complex 02/12/2019 Patient Education: Patient [...] when he had previous blockages - his windlasser in [place] does not seem to be as interested as his family would like - they are wondering about transitioning back to someone from his previous windlasser group. They have a potential appt pending. [...] when he had previous blockages - his windlasser in [place] does not seem to be as interested as his family would like - they are wondering about transitioning back to someone from his previous windlasser group. They have a potential appt pending. I spent 45 minutes with the patient and his family in direct contact and discussion. 01/29/2019 Appointment: Lesley Butcher WPtel: [phone] [facility] (30 min) Complex 01/29/2019 Patient Education: Patient Medication Summary Completed 01/29/2019 Visit Plan: Left rib pain - x-ray pending - The pt is to use prn antiinflammatories to manage acute pain. The patient is to call the office if the pain is worsening or does not improve. 2019 Appointment: Mady Dunne WPtel: [phone] [facility] (30 min) Complex 2019 Patient Education: Patient [...] spray. 01/08/2019 Appointment: Merline Rose WPtel: [phone] [phone] (30 min) Complex 01/08/2019 Patient Education: Patient Medication Summary Completed 01/08/2019 Visit Plan: Fatigue, shortness of breath, dizziness - pt is to continue PT, pt is to follow up with Dr. Panda and Dr. Harvey and is to notify clinic with any changes in the current treatment plan. 12/25/2018 Appointment: Mady Dunne WPtel: [phone] [facility] (15 min) Moderate 12/25/2018 Patient Education: [...] at 96% 12/13/2018 Appointment: Lesley Butcher WPtel: [phone] [facility] (15 min) Moderate 12/13/2018 Patient Education: Patient Medication Summary Completed 12/13/2018 Visit Plan: TOF-jqgicxq-ehwdlkstm of breath -patient reports worsening of chronic symptoms -will check EKG and cardiac enzymes to evaluate for acute changes -recommend patient follow up with his windlasser, Dr Sharyn vu -patient, and daughter verbalized understanding of plan. Generalized weakness-discussed PT referral after cleared by cardiology -patient's will call us when she wants to have it set up HTN-no change but monitor at home 11/27/2018 Appointment: Merline Rose WPtel: [phone] [phone] [place] (15 min) Moderate 11/27/2018 Patient [...] sessions. 09/26/2018 Appointment: [phone] (15 min) Moderate 09/26/2018 Patient Education: [...] surrogate. 08/10/2018 [facility]: [phone] [facility] - Annual Wellness Visit 08/10/2018 [...] home. 07/26/2018 Appointment: [phone] [facility] (15 min) Moderate 07/26/2018 Patient Education: [...] dexamethasone. 06/12/2018 Appointment: Lesley Butcher WPtel: [phone] [facility] (15 min) Moderate 06/12/2018 Patient Education: Patient Medication Summary Completed 06/12/2018 Visit Plan: Diverticulosis with recent GI bleeding - improved - continue with supportive care, avoid foods which cause any abdominal pain - monitor symptoms - call if any pain or bleeding recurs. Anemia - check labs today. Weakness - continue with increasing of activity. 05/10/2018 Appointment: Lesley Butcher WPtel: [facility] (30 min) Complex 05/10/2018 Patient Education: [...] cochlear implant. 03/27/2018 Appointment: Lesley Butcher WPtel: [facility]3 [facility] (15 min) Moderate 03/27/2018 Patient Education: [...] to medications. 01/24/2018 Appointment: Lesley Butcher WPtel: [facility] (15 min) Moderate 01/24/2018 Patient Education: Patient Medication Summary Completed 01/24/2018 Visit Plan: Influenza - pt started on tamiflu - pt to start on anti-inflammatories, tylenol and monitor symptoms. Pt to call if not improving. Pt to alert any close contacts as to illness. 12/08/2017 Appointment: Mady Dunne WPtel: [facility]8 [facility] (30 min) Complex 12/08/2017 Patient Education: Patient Medication Summary Completed 12/08/2017 Visit Plan: Hypertension - well controlled - continue with current medications, continue with no added salt diet. Pt has been encouraged to exercise daily. The pt has been advised to call the office if there are any acute concerns about change in blood pressure readings at home. 10/27/2017 Appointment: Lesley Butcher WPtel: [facility] (15 min) Moderate 10/27/2017 Patient Education: Patient Medication Summary Completed 10/27/2017 Referral: External, Ordering Provider Referral Initiated 10/12/2017 Visit Plan: BPH - continue with dutasteride and flomax Dysphagia - referral to Dr. Kumar for EGD - question stricture - dysphagia intermittently - hx of stricture. 09/29/2017 App[facility]ment: Les[facility] But[facility]el[phone] [facility] (15 min) Moderate 09/29/2017 Patient Education: Patient Medication Summary Completed 09/29/2017 Care Plan: Referral Order SNOMED-CT : 873103671 Pending 09/29/2017 Visit Plan: Hypertension - well [...] cochlear implant. 09/01/2017 Appointment: Les[facility] Butcher [facility]Ptel[phone] (15 min) Moderate 09/01/2017 Patient Education: Patient Medication Summary Completed 09/01/2017 Care Plan: Referral Order SNOMED-CT : 076921174 Pending 09/01/2017 Visit Plan: Medicare Exam - [...] surrogate. 08/03/2017 [phone] [facility] - Welcome to Medicare visit 08/03/2017 [...] medications. 04/26/2017 Appointment: Lesley Butcher WPtel: [phone] [facility] (15 min) Moderate 04/26/2017 Patient Education: [...] 10mg daily. 01/25/2017 Appointment: Les[facility] Butcher [facility]Ptel[phone] [facility] (30 min) Complex 01/25/2017 Patient Education: [...] detrol [place] 10/26/2016 Appointment: Lesley Butcher WPtel: [facility] (15 min) Moderate 10/26/2016 Patient Education: [...] retention occur. 09/27/2016 Appointment: Lesley Butcher WPtel: [facility] (15 min) Moderate 09/27/2016 Patient Education: [...] shelli andrea 06/28/2016 Appointment: Lesley Butcher WPtel: [facility] (15 min) Moderate 06/28/2016 Patient Education: [...] and plan. 02/17/2016 Appointment: Merline Rose [facility]Ptel: [phone] (30 min) Complex 02/17/2016 Patient Education: Patient [...] Completed 12/16/2015 Appointment: Les[facility] But[facility]Ptel[facility] [phone] [facility] (15 min) Moderate 12/04/2015 Appointment: Lesley Butcher WPtel[facility] [phone] [facility] [place] (15 min) Moderate 12/02/2015 Visit [...] PHARMACY 07/30/2015 Appointment: Lesley Butcher WPtel[facility] [phone] [facility] [place] (15 min) Moderate 07/30/2015 Patient [...] home. 04/29/2015 Appointment: Lesley Butcher [facility]Ptel[facility] [phone] [facility] (15 min) Moderate 04/29/2015 Patient Education: [...] External, Ordering Provider Referral Appointment Requested Referral: [facility] 09/12 Referral info faxed Appointment Requested Referral: [facility] Referral Appointment Requested Instructions Comment . [...] for pt to restart his dexamethasone. . Left nare ulceration - silver nitrated utilized to cauterize area, pt tolerated procedure well, pt is to avoid nasal sprays, but continue with oral allergy medications - pt is to notify clinic if symptoms return, or with any other changes, questions, or concerns. . Gout Attack - pt given rx [...] stay for the patient's health benefit. . Back weakness/pain, unsteadiness on feet - [...] his family in direct contact and discussion. RACHEL 180MG DAILY FOR ALLERGIES . 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 . Influenza - pt started on tamiflu [...] anemia - continue with oral iron. CHECK UA TODAY . Afib-new diagnosis with cardiology -Dr Deleon -now on coumadin-will return to [place] in 2 weeks to discuss watchman device GPM-qlhokdjagh-gx changes Urinary frequency and urgency -check UA -patient unable to void at appt -will bring back sample add vitamin b12 dissolving tablets - 2000mcg [...] planned injection in back and call the aquatics instructor about a biopsy of the lesion on [...] agree with appt with shelli andrea CHECK CARDIAC ENYZMES AND EKG . ADE-lphdiaw-gticlykxs of breath -patient reports worsening of chronic symptoms -will check EKG and cardiac enzymes to evaluate for acute changes -recommend patient follow up with his windlasser, Dr Stokes -patient, and daughter verbalized understanding [...] assure normal liver response to medications. . BPH - continue with dutasteride [...] overnight oxygen study - we will call [facility] to set him up for an overnight [...] when he had previous blockages - his windlasser in [place] does not seem to be as interested as his family would like - they are wondering about transitioning back to someone from his previous windlasser group. They have a potential appt pending. [...] when he had previous blockages - his windlasser in [place] does not seem to be as interested as his family would like - they are wondering about transitioning back to someone from his previous windlasser group. They have a potential appt pending. I spent 45 minutes with the patient and his family in direct contact and discussion.
--- OUTSIDE RECORDS SUMMARY | 2019-05-25 01:19 | XMS REPORT | CCD ---
Author Author [facility] Organization [facility] Address [address] [place] [address] Phone Care Team Providers Care Fraud Analyst Name Role Phone PP Unavailable CCM Unavailable Summary Purpose Interface Exchange Insurance Providers Payer name Policy type / Coverage type Covered green party ID Effective Begin Date Effective End Date WPS Medicare Part B Medicare Part B [id number] 2018 Unknown [facility] Medicare Part B [id number] 2018 Unknown Family history Father Diagnosis Age At Onset Hypertension Unknown Coronary Artery Disease Unknown Sister Diagnosis Age At Onset Heart disease Unknown Mother Diagnosis Age At Onset Coronary Artery Disease Unknown Hypertension Unknown Social History Social History Element Codes Description Effective Dates Marital status Unknown 02/19/2015 Number of children Unknown 2 02/19/2015 Employment Unknown Retired 02/19/[address]: 848927675 Has never smoked or chewed tobacco 02/19/2015 Alcohol history Unknown occasionally drinks alcohol 02/19/2015 Allergies, Adverse Reactions, Alerts Substance Reaction Codes Entered Date Inactivated Date Status bactrim RxNorm: 773635 12/19/2015 No Inactive Date Active ciprofloxacin RxNorm: 03293 02/18/2015 No Inactive Date Active IV DYE, IODINE CONTAINING Unknown 03/09/2019 No Inactive Date Active Past Medical History Illness Codes Condition Status Onset Date Resolved Date Epistaxis ICD-9: 784.7 ICD-10: R04.0 Active 05/21/2019 [...] Problems Condition Codes Effective Dates Condition Status Epistaxis ICD-9: 784.7 ICD-10: R04.0 05/21/2019 Active [...] Fill Instructions atorvastatin 80 mg tablet RxNorm: 400918 1 Tablet(s) PO daily 04/23/2019 No Stop Date Active Vitamin D3 1,000 unit capsule RxNorm: 945141 1 Capsule(s) PO daily 04/23/2019 No Stop Date Active nitroglycerin 0.4 mg sublingual tablet RxNorm: 771219 1 Tablet(s) SL x3 in 15 min as needed 03/05/2019 No Stop Date Active losartan 50 mg tablet RxNorm: 846817 1 Tablet(s) PO daily 02/16/2019 02/10/2020 Active Requip 0.25 mg tablet RxNorm: 007309 1 Tablet(s) PO QHS 01/29/2019 01/23/2020 Active Flomax 0.4 mg capsule RxNorm: 280540 TAKE 1 CAPSULE BY MOUTH ONCE DAILY IN THE EVENING 01/25/2019 No Stop Date Active Requip 0.25 mg tablet RxNorm: 018729 1 Tablet(s) PO QHS 2019 01/28/2019 Inactive pantoprazole 40 mg tablet,delayed release RxNorm: 200088 TAKE ONE TABLET BY MOUTH ONCE DAILY AT BEDTIME 11/27/2018 No Stop Date Active atorvastatin 40 mg tablet RxNorm: 305548 1 Tablet(s) PO daily 09/26/2018 10/25/2018 Inactive dexamethasone 0.5 mg tablet RxNorm: 578576 TAKE 1 TABLET BY MOUTH ONCE DAILY 08/29/2018 04/22/2019 Inactive clonazepam 1 mg tablet RxNorm: 510698 1/2 Tablet(s) PO QHS 08/24/2018 04/22/2019 Inactive allopurinol 100 mg tablet RxNorm: 015147 TAKE ONE TABLET BY MOUTH ONCE DAILY 08/03/2018 No Stop Date Active citalopram 40 mg tablet RxNorm: 606133 TAKE ONE TABLET BY MOUTH ONCE DAILY 06/13/2018 No Stop Date Active Kenalog 40 mg/mL suspension for injection RxNorm: 3319286 Milliliter(s) Inj 06/12/2018 06/12/2018 Inactive clonazepam 1 mg tablet RxNorm: 273300 1 Tablet(s) PO QHS 06/12/2018 08/23/2018 Inactive clonazepam 1 mg tablet RxNorm: 804707 1/2 Tablet(s) TAKE ONE TABLET BY MOUTH ONCE DAILY AT BEDTIME AND ONE TABLET THREE TIMES DAILY NEEDED 05/24/2018 06/11/2018 Inactive citalopram 40 mg tablet RxNorm: 612756 1/2 Tablet(s) TAKE ONE TABLET BY MOUTH ONCE DAILY 05/24/2018 09/25/2018 Inactive losartan 50 mg tablet RxNorm: 527735 1/2 Tablet(s) PO daily 05/24/2018 02/15/2019 Inactive spironolactone 25 mg tablet RxNorm: 988667 TAKE ONE TABLET BY MOUTH ONCE DAILY 05/22/2018 No Stop Date Active dexamethasone 0.5 mg tablet RxNorm: 819665 TAKE ONE TABLET BY MOUTH ONCE DAILY 02/21/2018 08/28/2018 Inactive Flomax 0.4 mg capsule RxNorm: 965832 TAKE ONE CAPSULE BY MOUTH ONCE DAILY IN THE EVENING 12/19/2017 01/24/2019 Inactive Tamiflu 75 mg capsule RxNorm: 192650 1 Capsule(s) PO BID 12/08/2017 12/12/2017 Inactive clonazepam 1 mg tablet RxNorm: 417591 Tablet(s) TAKE ONE TABLET BY MOUTH ONCE DAILY AT BEDTIME AND ONE TABLET THREE TIMES DAILY NEEDED 11/28/2017 01/26/2018 Inactive pantoprazole 40 mg tablet,delayed release RxNorm: 980505 TAKE ONE TABLET BY MOUTH ONCE DAILY AT BEDTIME 11/07/2017 11/26/2018 Inactive allopurinol 100 mg tablet RxNorm: 558593 TAKE ONE TABLET BY MOUTH ONCE DAILY 10/03/2017 08/02/2018 Inactive pantoprazole 40 mg tablet,delayed release RxNorm: 212601 1 Tablet(s) PO BID 09/01/2017 05/28/2018 Inactive Vitamin B-6 100 mg tablet RxNorm: 023413 1 Tablet(s) PO daily 09/01/2017 06/11/2018 Inactive dutasteride 0.5 mg capsule RxNorm: 740051 1 Capsule(s) PO QPM 09/01/2017 06/11/2018 Inactive spironolactone 25 mg tablet RxNorm: 469674 TAKE ONE TABLET BY MOUTH ONCE DAILY 08/15/2017 05/21/2018 Inactive citalopram 40 mg tablet RxNorm: 157054 TAKE ONE TABLET BY MOUTH ONCE DAILY 08/08/2017 05/04/2018 Inactive dexamethasone 0.5 mg tablet RxNorm: 256142 TAKE ONE TABLET BY MOUTH ONCE DAILY 08/08/2017 11/05/2017 Inactive clonazepam 1 mg tablet RxNorm: 227628 1 Tablet(s) PO QHS AND 1 TAB PO TID PRN 05/12/2017 05/13/2017 Inactive clonazepam 1 mg tablet RxNorm: 306259 TAKE ONE TABLET BY MOUTH ONCE DAILY AT BEDTIME AND ONE THREE TIMES DAILY NEEDED 05/12/2017 04/22/2019 Inactive oxybutynin chloride ER 10 mg tablet,extended release 24 hr RxNorm: 891488 1 Tablet(s) PO daily 04/29/2017 08/02/2017 Inactive dexamethasone 0.5 mg tablet RxNorm: 548425 TAKE ONE TABLET BY MOUTH ONCE DAILY 02/14/2017 04/14/2017 Inactive Flomax 0.4 mg capsule RxNorm: 304812 TAKE ONE CAPSULE BY MOUTH ONCE DAILY IN THE EVENING 02/14/2017 11/10/2017 Inactive pantoprazole 40 mg tablet,delayed release RxNorm: 213076 TAKE ONE TABLET BY MOUTH ONCE DAILY AT BEDTIME 02/14/2017 08/31/2017 Inactive oxybutynin chloride ER 10 mg tablet,extended release 24 hr RxNorm: 877141 1 Tablet(s) PO daily 01/25/2017 04/24/2017 Inactive dexamethasone 0.5 mg tablet RxNorm: 180364 TAKE ONE TABLET BY MOUTH ONCE DAILY 11/10/2016 12/09/2016 Inactive oxybutynin chloride ER 5 mg tablet,extended release 24 hr RxNorm: 972622 1 Tablet(s) PO daily 10/28/2016 10/27/2016 Inactive oxybutynin chloride ER 5 mg tablet,extended release 24 hr RxNorm: 579274 1 Tablet(s) PO daily 10/28/2016 01/24/2017 Inactive Detrol LA 2 mg capsule,extended release RxNorm: 662658 1 Capsule(s) PO QPM 10/26/2016 10/27/2016 Inactive clonazepam 1 mg tablet RxNorm: 334371 1 Tablet(s) PO QHS AND 1 TAB PO TID PRN 10/20/2016 04/17/2017 Inactive dexamethasone 0.5 mg tablet RxNorm: 241191 TAKE ONE TABLET BY MOUTH ONCE DAILY 10/06/2016 11/04/2016 Inactive allopurinol 100 mg tablet RxNorm: 821844 1 Tablet(s) PO daily 09/30/2016 09/24/2017 Inactive Vesicare 5 mg tablet RxNorm: 310815 1 Tablet(s) PO QPM 09/27/2016 12/12/2016 Inactive spironolactone 25 mg tablet RxNorm: 080621 1 Tablet(s) PO daily 08/06/2016 07/31/2017 Inactive citalopram 40 mg tablet RxNorm: 034041 1 Tablet(s) PO daily 06/28/2016 06/22/2017 Inactive iron ER 159 mg (45 mg iron) tablet,extended release RxNorm: 932190 1 Tablet(s) PO daily 04/27/2016 08/31/2017 Inactive dexamethasone 0.5 mg tablet RxNorm: 277771 1/2 Tablet(s) PO daily 04/27/2016 02/20/2018 Inactive allopurinol 100 mg tablet RxNorm: 559578 1 Tablet(s) PO daily 04/27/2016 09/29/2016 Inactive Plavix 75 mg tablet RxNorm: 628710 1 Tablet(s) PO daily 04/27/2016 02/11/2019 Inactive clonazepam 1 mg tablet RxNorm: 037397 1 Tablet(s) PO QHS and 1 tab po TID prn 04/14/2016 10/07/2016 Inactive allopurinol 100 mg tablet RxNorm: 884153 1 Tablet(s) PO daily 02/17/2016 04/26/2016 Inactive citalopram 20 mg tablet RxNorm: 231758 1 Tablet(s) PO daily 01/20/2016 06/27/2016 Inactive Flomax 0.4 mg capsule RxNorm: 014525 1 Capsule(s) PO QPM 01/20/2016 01/13/2017 Inactive [SAVINGS FOR NON-COVERED DRUGS -- BIN:[id number], PCN: ASPROD1, Group: XXXXX, ID# XXXXXXX, Questions: . THIS IS NOT INSURANCE.] pantoprazole 40 mg tablet,delayed release RxNorm: 853381 1 Tablet(s) PO QHS 01/20/2016 01/13/2017 Inactive Colcrys 0.6 mg tablet RxNorm: 834843 1 Tablet(s) PO daily 01/06/2016 03/05/2016 Inactive take daily x 7 days then daily as needed for gout flair colchicine 0.6 mg tablet RxNorm: 177439 1 Tablet(s) PO BID 12/30/2015 01/01/2016 Inactive doxycycline hyclate 100 mg tablet RxNorm: 902002 1 Tablet(s) PO BID 12/19/2015 12/28/2015 Inactive doxycycline hyclate 100 mg tablet RxNorm: 867328 1 Tablet(s) PO BID 12/19/2015 12/18/2015 Inactive allopurinol 100 mg tablet RxNorm: 331267 1 Tablet(s) PO daily 12/16/2015 02/16/2016 Inactive colchicine 0.6 mg tablet RxNorm: 617684 Tablet(s) PO 1.2 mg PO in the morning and 0.6 mg at night for 2 days. 12/16/2015 12/29/2015 Inactive allopurinol 100 mg tablet RxNorm: 894116 1 Tablet(s) PO daily 12/16/2015 12/15/2015 Inactive Protonix 40 mg tablet,delayed release RxNorm: 720241 1 Tablet(s) PO daily 12/16/2015 01/14/2016 Inactive Bactrim DS 800 mg-160 mg tablet RxNorm: 492144 1 Tablet(s) PO BID 12/16/2015 12/18/2015 Inactive colchicine 0.6 mg tablet RxNorm: 373633 Tablet(s) PO 1.2 mg for the first dose and 0.6 mg an hour after 12/15/2015 12/15/2015 Inactive dexamethasone 0.5 mg tablet RxNorm: 075909 1 Tablet(s) PO 12/12/2015 02/09/2016 Inactive Plavix 75 mg tablet RxNorm: 449698 1 Tablet(s) PO every other day 12/12/2015 04/09/2016 Inactive nitroglycerin 0.4 mg sublingual tablet RxNorm: 572865 1 Tablet(s) SL x3 in 15 min as needed 12/12/2015 04/26/2016 Inactive Preston 5 mg-325 mg tablet RxNorm: 302326 1-2 Tablet(s) PO Q6 as needed 12/11/2015 09/26/2016 Inactive clonazepam 1 mg tablet RxNorm: 233901 1 Tablet(s) PO QHS and 1 tab po TID prn 12/11/2015 04/22/2019 Inactive clonazepam 1 mg tablet RxNorm: 372040 1 Tablet(s) PO QHS and 1 tab po TID prn 12/04/2015 12/10/2015 Inactive Flomax 0.4 mg capsule RxNorm: 480060 1 Capsule(s) PO QPM 09/22/2015 01/19/2016 Inactive [SAVINGS FOR NON-COVERED DRUGS -- BIN:[id number], PCN: ASPROD1, Group: XXXXX, ID# [id number], Questions: . THIS IS NOT INSURANCE.] Flomax 0.4 mg capsule RxNorm: 913166 1 Capsule(s) PO QPM 09/16/2015 09/21/2015 Inactive [SAVINGS FOR NON-COVERED DRUGS -- BIN:[id number], PCN: ASPROD1, Group: XXXXX, ID# XXXXXXX, Questions: . THIS IS NOT INSURANCE.] clonazepam 1 mg tablet RxNorm: 119601 1 Tablet(s) PO QHS 08/29/2015 12/03/2015 Inactive coenzyme Q10 10 mg tablet RxNorm: 124782 1 Tablet(s) PO daily 07/30/2015 01/05/2016 Inactive spironolactone 25 mg tablet RxNorm: 240160 1 Tablet(s) PO daily 07/28/2015 07/21/2016 Inactive spironolactone 25 mg tablet RxNorm: 275246 1 Tablet(s) PO daily 07/22/2015 07/27/2015 Inactive clonazepam 1 mg tablet RxNorm: 287383 1 Tablet(s) PO QHS 05/23/2015 08/28/2015 Inactive losartan 25 mg tablet RxNorm: 894246 1 Tablet(s) PO daily 02/19/2015 03/20/2015 Inactive Flonase Allergy Relief 50 mcg/actuation nasal spray,suspension RxNorm: 1 [place] NASAL BID 02/19/2015 04/26/2016 Inactive [SAVINGS FOR NON-COVERED DRUGS -- BIN:[id number], PCN: ASPROD1, Group: XXXXX, ID# [id number], Questions: . THIS IS NOT INSURANCE.] Flomax 0.4 mg capsule RxNorm: 659259 1 Capsule(s) PO QPM 02/19/2015 09/15/2015 Inactive [SAVINGS FOR NON-COVERED DRUGS -- BIN:[id number], PCN: ASPROD1, Group: XXXXX, ID# XXXXXXX, Questions: . THIS IS NOT INSURANCE.] citalopram 20 mg tablet RxNorm: 649656 1 Tablet(s) PO daily 02/19/2015 03/20/2015 Inactive atenolol 25 mg tablet RxNorm: 978636 1 Tablet(s) PO daily 02/19/2015 03/20/2015 Inactive Lipitor 20 mg tablet RxNorm: 684723 1 Tablet(s) PO daily 02/19/2015 03/20/2015 Inactive Flonase Allergy Relief 50 mcg/actuation nasal spray,suspension RxNorm: 3021402 1 [place] NASAL QHS No Start Date Active amiodarone 200 mg tablet RxNorm: 283410 1 Tablet(s) PO TID No Start Date Active Vitamin D3 5,000 unit tablet RxNorm: 519926 1 Tablet(s) PO daily No Start Date Active warfarin 3 mg tablet RxNorm: 085878 1 Tablet(s) PO daily No Start Date Active managed by nurse ortho Dr Deleon Rachel 180 mg tablet RxNorm: 668257 1 Tablet(s) PO daily No Start Date Active Centrum Complete oral RxNorm: 19752 oral No Start Date Active aspirin 325 mg tablet RxNorm: 353703 1 Tablet(s) PO daily No Start Date Active glucosamine HCl 1,500 mg tablet RxNorm: 357141 1 Tablet(s) with 1200 mg chrondroitin PO daily No Start Date 08/01/2018 Inactive vitamin B complex oral RxNorm: 07307 oral No Start Date 04/22/2019 Inactive Claritin-D 24 Hour oral RxNorm: 235729 oral No Start Date 01/07/2019 Inactive ranitidine 150 mg tablet RxNorm: 342711 1 Tablet(s) PO TID No Start Date 12/11/2015 Inactive Rachel oral RxNorm: 987202 oral No Start Date 04/23/2019 Inactive Lipitor oral RxNorm: 50770 oral No Start Date 04/23/2019 Inactive Preston 5 mg-325 mg tablet RxNorm: 184029 1-2 Tablet(s) PO Q6 as needed No Start Date 12/10/2015 Inactive krill oil oral RxNorm: 15568 oral No Start Date 08/07/2018 Inactive Vitamin B-6 100 mg tablet RxNorm: 015934 1 Tablet(s) PO TID No Start Date 08/31/2017 Inactive spironolactone 25 mg tablet RxNorm: 463636 1 Tablet(s) PO daily No Start Date 07/21/2015 Inactive Vitamin D3 oral RxNorm: 2418 oral No Start Date 02/17/2016 Inactive clonazepam 1 mg tablet RxNorm: 206347 1 Tablet(s) PO daily No Start Date 05/22/2015 Inactive Glucosamine oral RxNorm: 4845 oral No Start Date 04/26/2016 Inactive cetirizine 10 mg tablet RxNorm: 1463655 1 Tablet(s) PO daily No Start Date 01/07/2019 Inactive losartan 50 mg tablet RxNorm: 454992 1 Tablet(s) PO daily No Start Date 05/23/2018 Inactive Plavix 75 mg tablet RxNorm: 700111 1 Tablet(s) PO every other day No Start Date 12/11/2015 Inactive Osteo Bi-Flex oral RxNorm: 9243141 oral No Start Date 09/01/2017 Inactive iron ER 159 mg (45 mg iron) tablet,extended release RxNorm: 196468 1 Tablet(s) PO BID No Start Date 04/26/2016 Inactive amlodipine 5 mg tablet RxNorm: 023469 1 Tablet(s) PO daily No Start Date 01/05/2016 Inactive aspirin 81 mg tablet,delayed release RxNorm: 884502 1 Tablet(s) PO daily No Start Date 05/09/2018 Inactive aspirin 81 mg capsule,delayed release RxNorm: 893534 1 Capsule(s) PO daily No Start Date 04/22/2019 Inactive dexamethasone 0.5 mg tablet RxNorm: 242022 1 Tablet(s) PO No Start Date 12/11/2015 Inactive Vitamin B-12 1,000 mcg tablet RxNorm: 084020 6 Tablet(s) PO every other day No Start Date 06/11/2018 Inactive Aleve 220 mg tablet RxNorm: 340822 Tablet(s) PO as needed No Start Date 04/22/2019 Inactive Vitamin D3 1,000 unit capsule RxNorm: 208403 2 Capsule(s) PO daily No Start Date 04/22/2019 Inactive colchicine 0.6 mg tablet RxNorm: 256754 Tablet(s) PO 1.2 mg for the first dose and 0.6 mg an hour after No Start Date 12/14/2015 Inactive nitroglycerin 0.4 mg sublingual tablet RxNorm: 747500 1 Tablet(s) SL x3 in 15 min as needed No Start Date 12/11/2015 Inactive Fish Oil 1,000 mg capsule RxNorm: 1 Capsule(s) PO daily No Start Date 04/26/2016 Inactive Ecotrin Low Strength 81 mg tablet,enteric coated RxNorm: 5610821 1 Tablet(s) PO daily No Start Date 09/27/2016 Inactive Carafate 1 gram tablet RxNorm: 683903 1 Tablet(s) PO every other day No Start Date 04/22/2019 Inactive Medication Administered Medication Codes Instructions Start Date Status Kenalog 40 mg/mL suspension for injection RxNorm: 8910794 Milliliter 06/12/2018 No longer Active Immunizations Vaccine Codes Date Status Influenza CVX: 141 07/05/2018 completed Influenza CVX: 141 08/01/2017 completed Pneumococcal CVX: 33 08/01/2017 completed Influenza CVX: 141 06/28/2016 completed Tetanus, Diptheria, Pertussis CVX: 113 06/28/2016 completed Tetanus/Diptheria CVX: 113 06/28/2016 completed Pneumococcal Unknown 08/04/2015 completed Influenza CVX: 141 04/16/2014 completed Pneumococcal CVX: 33 05/15/2008 completed Assessments Condition Codes Effective Dates Epistaxis ICD-10: R04.0 ICD-9: 784.7 05/21/2019 Mixed [...] 30.4 pg 10/20/2018 Cbc With Differential Ord2 Young% 5.7 % 10/20/2018 Cbc With Differential Ord2 [...] 1.69 K/ul 10/20/2018 Cbc With Differential Ord2 Young ABS# 0.6 K/ul 10/20/2018 Cbc With Differential Ord2 Eos ABS# 0.0 K/ul 10/20/2018 Cbc With Differential Ord2 Baso ABS# 0.0 K/ul 10/20/2018 Comp Metabolic Upq833 NA 140 mEq/L 10/20/2018 Comp Metabolic Zin283 K 4.0 mEq/L 10/20/2018 Comp Metabolic Lim716 CL 104 mEq/L 10/20/2018 Comp Metabolic Con938 CO2 28.0 mEq/L 10/20/2018 Comp Metabolic Wwe176 ANION GAP 12 10/20/2018 Comp Metabolic Gsm214 GLUCOSE 113 mg/dL 10/20/2018 Comp Metabolic Ata763 Creat 1.0 mg/dL 10/20/2018 Comp Metabolic Muq757 eGFR 75 ml/min/1.73m2 10/20/2018 Comp Metabolic Nfs579 BUN 18 mg/dL 10/20/2018 Comp Metabolic Gqm337 B/C Ratio 17.8 Ratio 10/20/2018 Comp Metabolic Mfi231 CALCIUM 9.8 mg/dL 10/20/2018 Comp Metabolic Aeb887 ALK PHOS 70 U/L 10/20/2018 Comp Metabolic Idd452 AST(SGOT) 15 U/L 10/20/2018 Comp Metabolic Wwy529 ALT(SGPT) 18 U/L 10/20/2018 Comp Metabolic Dca949 BILI T 1.1 mg/dL 10/20/2018 Comp Metabolic Efr598 ALBUMIN 4.4 g/dL 10/20/2018 Comp Metabolic Got128 TPRO 6.9 g/dL 10/20/2018 Comp Metabolic Neo952 GLOB 2.5 g/dL 10/20/2018 Comp Metabolic Eqp415 A/G Ratio 1.7 Ratio 10/20/2018 Comp Metabolic Dor678 Osmo 282 mOsmo 10/20/2018 Urinalysis Ord28 U-Color [...] 29.0 pg 07/14/2018 Cbc With Differential Ord2 Young% 7.5 % 07/14/2018 Cbc With Differential Ord2 [...] 1.92 K/ul 07/14/2018 Cbc With Differential Ord2 Young ABS# 0.4 K/ul 07/14/2018 Cbc With Differential Ord2 Eos ABS# 0.2 K/ul 07/14/2018 Cbc With Differential Ord2 Baso ABS# 0.0 K/ul 07/14/2018 Renal Tmg574 NA 140 mEq/L 07/14/2018 Renal Gvz944 K 4.2 mEq/L 07/14/2018 Renal Smn391 CL 103 mEq/L 07/14/2018 Renal Zsh926 CO2 29.0 mEq/L 07/14/2018 Renal Sjd445 ANION GAP 12 07/14/2018 Renal Pdw515 Osmo 280 mOsmo 07/14/2018 Renal Ims416 GLUCOSE 95 mg/dL 07/14/2018 Renal Hoh880 BUN 15 mg/dL 07/14/2018 Renal Zny502 Creat 1.2 mg/dL 07/14/2018 Renal Eju797 eGFR 64 ml/min/1.73m2 07/14/2018 Renal Yee322 B/C Ratio 12.8 Ratio 07/14/2018 Renal Tpn089 CALCIUM 9.6 mg/dL 07/14/2018 Renal Xpd502 PHOS 3.2 mg/dL 07/14/2018 Renal Qut063 ALBUMIN 4.4 g/dL 07/14/2018 Magnesium Ord90 Mag [...] 29.7 pg 06/08/2018 Cbc With Differential Ord2 Young% 8.7 % 06/08/2018 Cbc With Differential Ord2 [...] 2.14 K/ul 06/08/2018 Cbc With Differential Ord2 Young ABS# 0.5 K/ul 06/08/2018 Cbc With Differential Ord2 Eos ABS# 0.2 K/ul 06/08/2018 Cbc With Differential Ord2 Baso ABS# 0.0 K/ul 06/08/2018 Comp Metabolic Afg785 NA 139 mEq/L 06/08/2018 Comp Metabolic Maf442 K 4.6 mEq/L 06/08/2018 Comp Metabolic Hns891 CL 105 mEq/L 06/08/2018 Comp Metabolic Mrd354 CO2 26.0 mEq/L 06/08/2018 Comp Metabolic Jkh111 ANION GAP 13 06/08/2018 Comp Metabolic Ssg725 GLUCOSE 95 mg/dL 06/08/2018 Comp Metabolic Wmt073 Creat 1.2 mg/dL 06/08/2018 Comp Metabolic Dju954 eGFR 59 ml/min/1.73m2 06/08/2018 Comp Metabolic Nmh461 BUN 12 mg/dL 06/08/2018 Comp Metabolic Vke059 B/C Ratio 9.7 Ratio 06/08/2018 Comp Metabolic Ijs023 CALCIUM 9.9 mg/dL 06/08/2018 Comp Metabolic Tzg646 ALK PHOS 70 U/L 06/08/2018 Comp Metabolic Xzx991 AST(SGOT) 21 U/L 06/08/2018 Comp Metabolic Xoj634 ALT(SGPT) 20 U/L 06/08/2018 Comp Metabolic Vji781 BILI T 1.0 mg/dL 06/08/2018 Comp Metabolic Ulx769 ALBUMIN 4.5 g/dL 06/08/2018 Comp Metabolic Uld580 TPRO 7.2 g/dL 06/08/2018 Comp Metabolic Hia953 GLOB 2.8 g/dL 06/08/2018 Comp Metabolic Qoa338 A/G Ratio 1.6 Ratio 06/08/2018 Comp Metabolic Uau893 Osmo 277 mOsmo 06/08/2018 Cbc With Differential [...] 30.6 pg 05/10/2018 Cbc With Differential Ord2 Young% 6.5 % 05/10/2018 Cbc With Differential Ord2 [...] 1.94 K/ul 05/10/2018 Cbc With Differential Ord2 Young ABS# 0.4 K/ul 05/10/2018 Cbc With Differential [...] Ord30 C/HDL 4.2 Ratio 01/26/2018 Comp Metabolic Hjw917 NA 138 mEq/L 01/26/2018 Comp Metabolic Bog428 K 4.2 mEq/L 01/26/2018 Comp Metabolic Jnq915 CL 105 mEq/L 01/26/2018 Comp Metabolic Jyo581 CO2 23.0 mEq/L 01/26/2018 Comp Metabolic Omh188 ANION GAP 14 01/26/2018 Comp Metabolic Afn387 GLUCOSE 89 mg/dL 01/26/2018 Comp Metabolic Orh996 Creat 1.1 mg/dL 01/26/2018 Comp Metabolic Scu710 eGFR 70 ml/min/1.73m2 01/26/2018 Comp Metabolic Zxe323 BUN 18 mg/dL 01/26/2018 Comp Metabolic Icx729 B/C Ratio 16.8 Ratio 01/26/2018 Comp Metabolic Kuw908 CALCIUM 9.2 mg/dL 01/26/2018 Comp Metabolic Tbq928 ALK PHOS 67 U/L 01/26/2018 Comp Metabolic Nbk210 AST(SGOT) 31 U/L 01/26/2018 Comp Metabolic Wjo665 ALT(SGPT) 23 U/L 01/26/2018 Comp Metabolic Uli790 BILI T 1.7 mg/dL 01/26/2018 Comp Metabolic Tto858 ALBUMIN 3.9 g/dL 01/26/2018 Comp Metabolic Rbn239 TPRO 6.7 g/dL 01/26/2018 Comp Metabolic Vry234 GLOB 2.8 g/dL 01/26/2018 Comp Metabolic Ysv573 A/G Ratio 1.4 Ratio 01/26/2018 Comp Metabolic Rhv276 Osmo 277 mOsmo 01/26/2018 Cbc With Differential [...] 30.7 pg 01/26/2018 Cbc With Differential Ord2 Young% 7.1 % 01/26/2018 Cbc With Differential Ord2 [...] 2.40 K/ul 01/26/2018 Cbc With Differential Ord2 Young ABS# 0.5 K/ul 01/26/2018 Cbc With Differential Ord2 Eos ABS# 0.2 K/ul 01/26/2018 Cbc With Differential Ord2 Baso ABS# 0.0 K/ul 01/26/2018 Tsh Ord6 TSH (3rd IS) 1.81 uIU/mL 01/26/2018 Testosterone Sgu672 Testo 370.3 ng/dL 01/26/2018 C A/B FLU [id number] Influenza A Scr Negative 12/08/2017 C A/B FLU [id number] Influenza B Scr Negative 12/08/2017 C A/B FLU [id number] Influenza Intrp B AG:PRID:PT:NOSE:NOM:IF See Footnote 12/08/2017 [...] 30.8 pg 04/11/2017 Cbc With Differential Ord2 Young% 8.1 % 04/11/2017 Cbc With Differential Ord2 [...] 1.91 K/ul 04/11/2017 Cbc With Differential Ord2 Young ABS# 0.5 K/ul 04/11/2017 Cbc With Differential Ord2 Eos ABS# 0.2 K/ul 04/11/2017 Cbc With Differential Ord2 Baso ABS# 0.0 K/ul 04/11/2017 Comp Metabolic Xiz041 NA 140 mEq/L 04/11/2017 Comp Metabolic Ugy478 K 4.1 mEq/L 04/11/2017 Comp Metabolic Cvp758 CL 105 mEq/L 04/11/2017 Comp Metabolic Wll146 CO2 26.0 mEq/L 04/11/2017 Comp Metabolic Qqz304 ANION GAP 13 04/11/2017 Comp Metabolic Gsq708 GLUCOSE 88 mg/dL 04/11/2017 Comp Metabolic Rvn328 Creat 1.1 mg/dL 04/11/2017 Comp Metabolic Leb263 eGFR 66 ml/min/1.73m2 04/11/2017 Comp Metabolic Nor111 BUN 18 mg/dL 04/11/2017 Comp Metabolic Jtn397 B/C Ratio 15.9 Ratio 04/11/2017 Comp Metabolic Lml052 CALCIUM 9.0 mg/dL 04/11/2017 Comp Metabolic Pvy951 ALK PHOS 72 U/L 04/11/2017 Comp Metabolic Kji558 AST(SGOT) 22 U/L 04/11/2017 Comp Metabolic Dya605 ALT(SGPT) 26 U/L 04/11/2017 Comp Metabolic Ped856 BILI T 1.0 mg/dL 04/11/2017 Comp Metabolic Lvf442 ALBUMIN 4.0 g/dL 04/11/2017 Comp Metabolic Ohp354 TPRO 6.4 g/dL 04/11/2017 Comp Metabolic Rbf205 GLOB 2.4 g/dL 04/11/2017 Comp Metabolic Dfk376 A/G Ratio 1.6 Ratio 04/11/2017 Comp Metabolic Cjr649 Osmo 281 mOsmo 04/11/2017 Vitamin D 25 Oh Sqn1172 VITAMIN D, 25 HYDROXY 65.52 ng/mL 05/19/2016 [...] 28.5 pg 05/18/2016 Cbc With Differential Ord2 Young% 7.2 % 05/18/2016 Cbc With Differential Ord2 [...] 1.80 K/ul 05/18/2016 Cbc With Differential Ord2 Young ABS# 0.4 K/ul 05/18/2016 Cbc With Differential Ord2 Eos ABS# 0.2 K/ul 05/18/2016 Cbc With Differential Ord2 Baso ABS# 0.0 K/ul 05/18/2016 Magnesium Ord90 Mag 2.0 mg/dL 05/18/2016 Renal Jbm908 NA 139 mEq/L 05/18/2016 Renal Nlw640 K 4.0 mEq/L 05/18/2016 Renal Uga476 CL 104 mEq/L 05/18/2016 Renal Tvy126 CO2 27.0 mEq/L 05/18/2016 Renal Tzf091 ANION GAP 12 05/18/2016 Renal Zhu701 Osmo 279 mOsmo 05/18/2016 Renal Jaf072 GLUCOSE 91 mg/dL 05/18/2016 Renal Hhv829 BUN 18 mg/dL 05/18/2016 Renal Aqc808 Creat 1.3 mg/dL 05/18/2016 Renal Xap130 eGFR 59 ml/min/1.73m2 05/18/2016 Renal Wey453 B/C Ratio 14.3 Ratio 05/18/2016 Renal Ipw792 CALCIUM 9.3 mg/dL 05/18/2016 Renal Agq303 PHOS 3.2 mg/dL 05/18/2016 Renal Nbr862 ALBUMIN 4.2 g/dL 05/18/2016 Random Urine Protein/Creatinine Ratio Rhe1486 U Prot 15.0 mg/dl 05/18/2016 Random Urine Protein/Creatinine Ratio [id number] U CREAT 141.0 mg/dL 05/18/2016 Random Urine Protein/Creatinine Ratio [id number] R MTP/Creat Ratio 0.11 05/18/2016 Urinalysis Ord28 [...] 28.5 pg 02/19/2016 Cbc With Differential Ord2 Young% 9.5 % 02/19/2016 Cbc With Differential Ord2 [...] 1.91 K/ul 02/19/2016 Cbc With Differential Ord2 Young ABS# 0.5 K/ul 02/19/2016 Cbc With Differential Ord2 Eos ABS# 0.2 K/ul 02/19/2016 Cbc With Differential Ord2 Baso ABS# 0.0 K/ul 02/19/2016 Cbc With Differential Ord2 New Analyzer Notice Please note new ref ranges starting 10-29-2015 due to implemntation of new five part differential hematolgy analyzer. 02/19/2016 Tsh Ord6 hTSH II 2.10 uIU/mL 02/19/2016 Comp Metabolic Prk198 NA 138 mEq/L 02/19/2016 Comp Metabolic Mzy362 K 3.8 mEq/L 02/19/2016 Comp Metabolic Sqt586 CL 103 mEq/L 02/19/2016 Comp Metabolic Cso574 CO2 28.0 mEq/L 02/19/2016 Comp Metabolic Itd500 ANION GAP 11 02/19/2016 Comp Metabolic Elk994 GLUCOSE 94 mg/dL 02/19/2016 Comp Metabolic Mgy662 Creat 1.0 mg/dL 02/19/2016 Comp Metabolic Lqx727 eGFR 75 ml/min/1.73m2 02/19/2016 Comp Metabolic Hqx648 BUN 18 mg/dL 02/19/2016 Comp Metabolic Feq136 B/C Ratio 17.6 Ratio 02/19/2016 Comp Metabolic Cee637 CALCIUM 9.6 mg/dL 02/19/2016 Comp Metabolic Uaw527 ALK PHOS 93 U/L 02/19/2016 Comp Metabolic Jdt901 AST(SGOT) 23 U/L 02/19/2016 Comp Metabolic Avf499 ALT(SGPT) 19 U/L 02/19/2016 Comp Metabolic Ets213 BILI T 0.8 mg/dL 02/19/2016 Comp Metabolic Pbx611 ALBUMIN 4.1 g/dL 02/19/2016 Comp Metabolic Mew700 TPRO 6.8 g/dL 02/19/2016 Comp Metabolic Nor192 GLOB 2.7 g/dL 02/19/2016 Comp Metabolic Xxe020 A/G Ratio 1.5 Ratio 02/19/2016 Comp Metabolic Grd390 Osmo 277 mOsmo 02/19/2016 Uric Acid Ord77 Uric A 6.0 mg/dL 02/19/2016 Total Psa Ord10 PSA 0.82 ng/mL 02/19/2016 Comp Metabolic Wvg135 NA 140 mEq/L 12/16/2015 Comp Metabolic Dvz176 K 4.0 mEq/L 12/16/2015 Comp Metabolic Jgc079 CL 105 mEq/L 12/16/2015 Comp Metabolic Hbl995 CO2 24.0 mEq/L 12/16/2015 Comp Metabolic Aym802 ANION GAP 15 12/16/2015 Comp Metabolic Dee395 GLUCOSE 85 mg/dL 12/16/2015 Comp Metabolic Sgq307 Creat 1.2 mg/dL 12/16/2015 Comp Metabolic Tol458 eGFR 65 ml/min/1.73m2 12/16/2015 Comp Metabolic Qwz625 BUN 14 mg/dL 12/16/2015 Comp Metabolic Yvw911 B/C Ratio 12.1 Ratio 12/16/2015 Comp Metabolic Ivn555 CALCIUM 9.1 mg/dL 12/16/2015 Comp Metabolic Gas541 ALK PHOS 162 U/L 12/16/2015 Comp Metabolic Kfy351 AST(SGOT) 14 U/L 12/16/2015 Comp Metabolic Uhi384 ALT(SGPT) 17 U/L 12/16/2015 Comp Metabolic Rfi633 BILI T 1.0 mg/dL 12/16/2015 Comp Metabolic Kcy272 ALBUMIN 3.4 g/dL 12/16/2015 Comp Metabolic Nlu738 TPRO 6.2 g/dL 12/16/2015 Comp Metabolic Qzp367 GLOB 2.9 g/dL 12/16/2015 Comp Metabolic Spa950 A/G Ratio 1.2 Ratio 12/16/2015 Comp Metabolic Awj061 Osmo 279 mOsmo 12/16/2015 Uric Acid Ord77 [...] 29.9 % 12/16/2015 Cbc With Differential Ord2 Young% 7.5 % 12/16/2015 Cbc With Differential Ord2 [...] 1.52 K/ul 12/16/2015 Cbc With Differential Ord2 Young ABS# 0.4 K/ul 12/16/2015 Cbc With Differential [...] C/HDL 4.0 Ratio 07/21/2015 Urine Protein 24Hr Wnm674 U Prot 5.1 mg/dl 05/16/2015 Urine Protein 24Hr Kae773 U Prot24 71.5 mg/24hr 05/16/2015 Total Volume Urine Cit119 TV/24hr 1400 ml 05/16/2015 Total Psa Ord10 PSA 0.70 ng/mL 05/15/2015 Renal Bpx487 NA 135 mEq/L 05/15/2015 Renal Nxk262 K 3.9 mEq/L 05/15/2015 Renal Vsa964 CL 101 mEq/L 05/15/2015 Renal Eqz829 CO2 27.0 mEq/L 05/15/2015 Renal Wve185 ANION GAP 11 05/15/2015 Renal Zxp355 Osmo 274 mOsmo 05/15/2015 Renal Lvh563 GLUCOSE 132 mg/dL 05/15/2015 Renal Uam303 BUN 19 mg/dL 05/15/2015 Renal Epm754 Creat 1.1 mg/dL 05/15/2015 Renal Wsp363 eGFR 67 ml/min/1.73m2 05/15/2015 Renal Gvn922 B/C Ratio 17.0 Ratio 05/15/2015 Renal Gmy533 CALCIUM 9.6 mg/dL 05/15/2015 Renal Klx129 PHOS 3.0 mg/dL 05/15/2015 Renal Hzk705 ALBUMIN 4.3 g/dL 05/15/2015 Cbc With Differential [...] clear 04/23/2019 None Full Exam - General 1995 Ears/Nose/Throat [...] midsystolic 12/13/2018 None Full Exam - General 1995 Lymphatic neck nodes Overall: anterior cervical chain benign 12/13/2018 None Full Exam - General 1995 Lymphatic neck nodes Overall: posterior cervical chain [...] Formatting Model/CDA Sections, Assigned to/Sharee Ramirez CPT-4: 32043Fclrbdo 07/05/2018 THER/PROPH/DIAG INJ SC/IM CPT-4: 23583 06/12/2018 TRIAMCINOLONE ACET INJ NOS CPT-4: J3301 06/12/2018 PPPS, SUBSEQ VISIT CPT- 4: G0439 08/03/2017 ADMIN INFLUENZA VIRUS VAC CPT-4: G0008 06/28/2016 FLU VACC PRSV FREE INC ANTIG CPT-4: 80343 06/28/2016 TENIVAC TD VACCINE NO PRSRV 7/> IM CPT-4: 08098 06/28/2016 OCCULT BLOOD FECES CPT- 4: 66016 02/19/2015 Vital Signs Date Vital 05/21/2019 Blood Pressure 1: 120/78 Code: 8480-6 Heart Rate 1: 80 bpm Height: SpO2: 98% Weight: 04/23/2019 Blood Pressure 1: 140/70 Code: 8480-6 BMI: 28.5 Code: 28332-0 Heart Rate 1: 58 bpm Height: 6' SpO2: 92% Weight: 210 lbs 03/05/2019 Blood Pressure 1: 128/76 Code: 8480-6 BMI: 28.5 Code: 96230-9 Heart Rate 1: 85 bpm Height: 6' SpO2: 96% Weight: 210 lbs 02/12/2019 Blood Pressure 1: 110/70 Code: 8480-6 BMI: 28.5 Code: 65569-5 Heart Rate 1: 70 bpm Height: 6' SpO2: 93% Weight: 210 lbs 01/29/2019 Blood Pressure 1: 110/78 Code: 8480-6 BMI: 28.5 Code: 06640-3 Heart Rate 1: 98 bpm Height: 6' SpO2: 90% Weight: 210 lbs 2019 Blood Pressure 1: 136/74 Code: 8480-6 BMI: 28.6 Code: 10240-4 Heart Rate 1: 97 bpm Height: 6' SpO2: 94% Weight: 211 lbs 01/08/2019 Blood Pressure 1: 128/86 Code: 8480-6 BMI: 28.6 Code: 38289-9 Heart Rate 1: 96 bpm Height: 6' SpO2: 97% Weight: 211 lbs 12/25/2018 Blood Pressure 1: 112/62 Code: 8480-6 BMI: 28.6 Code: 84486-3 Heart Rate 1: 76 bpm Height: 6' SpO2: 96% Weight: 211 lbs 12/13/2018 Blood Pressure 1: 114/78 Code: 8480-6 BMI: 29.4 Code: 69131-2 Heart Rate 1: 73 bpm Height: 6' SpO2: 93% Weight: 217 lbs 11/27/2018 Blood Pressure 1: 110/70 Code: 8480-6 BMI: 28.5 Code: 99745-2 Heart Rate 1: 90 bpm Height: 6' SpO2: 95% Temperature: 36.8 (C) / 98.2 (F) Weight: 210 lbs 8 oz 09/26/2018 Blood Pressure 1: 130/80 Code: 8480-6 BMI: 29.6 Code: 77372-3 Heart Rate 1: 98 bpm Height: 6' SpO2: 93% Weight: 218 lbs 08/10/2018 BMI: 29.4 Code: 68040-4 Height: 6' Weight: 217 lbs 07/26/2018 Blood Pressure 1: 116/72 Code: 8480-6 BMI: 29.4 Code: 94859-7 Heart Rate 1: 102 bpm Height: 6' SpO2: 96% Weight: 217 lbs 07/05/2018 Blood Pressure 1: 132/72 Code: 8480-6 Heart Rate 1: 60 bpm SpO2: 95% 06/12/2018 Blood Pressure 1: 120/78 Code: 8480-6 BMI: 29.6 Code: 08065-9 Heart Rate 1: 103 bpm Height: 6' SpO2: 96% Weight: 218 lbs 05/10/2018 Blood Pressure 1: 114/68 Code: 8480-6 BMI: 29.4 Code: 54546-7 Heart Rate 1: 92 bpm Height: 6' SpO2: 97% Weight: 217 lbs 03/27/2018 Blood Pressure 1: 126/74 Code: 8480-6 BMI: 30.1 Code: 86154-0 Heart Rate 1: 103 bpm Height: 6' SpO2: 96% Weight: 222 lbs 01/25/2018 Blood Pressure 1: 122/70 Code: 8480-6 Blood Pressure 2: 12673 Code: 8480-6 Heart Rate 1: 63 bpm SpO2: 94% 01/24/2018 Blood Pressure 1: 11072 Code: 8480-6 BMI: 29.7 Code: 20583-5 Heart Rate 1: 88 bpm Height: 6' SpO2: 95% Weight: 219 lbs 12/08/2017 Blood Pressure 1: 12068 Code: 8480-6 BMI: 30.0 Code: 89447-7 Heart Rate 1: 91 bpm Height: 6' SpO2: 96% Temperature: 36.7 (C) / 98.1 (F) Weight: 221 lbs 10/27/2017 Blood Pressure 1: 124/76 Code: 8480-6 BMI: 30.1 Code: 86952-2 Heart Rate 1: 69 bpm Height: 6' SpO2: 95% Weight: 222 lbs 09/29/2017 Blood Pressure 1: 11866 Code: 8480-6 BMI: 29.9 Code: 08823-2 Heart Rate 1: 81 bpm Height: 6' SpO2: 95% Weight: 220 lbs 8 oz 09/01/2017 Blood Pressure 1: 122/82 Code: 8480-6 BMI: 29.6 Code: 96436-7 Heart Rate 1: 75 bpm Height: 6' SpO2: 97% Weight: 218 lbs 08/03/2017 Blood Pressure 1: 120/68 Code: 8480-6 Heart Rate 1: 68 bpm Height: 6' SpO2: 94% Waist Measure (cm): 97 cm 04/26/2017 Blood Pressure 1: 122/72 Code: 8480-6 BMI: 29.4 Code: 83163-0 Heart Rate 1: 85 bpm Height: 6' SpO2: 92% Weight: 217 lbs 01/25/2017 Blood Pressure 1: 118/78 Code: 8480-6 BMI: 29.4 Code: 05472-5 Heart Rate 1: 72 bpm Height: 6' SpO2: 94% Temperature: 36.9 (C) / 98.5 (F) Weight: 217 lbs 10/26/2016 Blood Pressure 1: 152/86 Code: 8480-6 BMI: 29.7 Code: 95270-8 Heart Rate 1: 58 bpm Height: 6' Weight: 219 lbs 09/27/2016 Blood Pressure 1: 138/80 Code: 8480-6 BMI: 29.4 Code: 62821-7 Heart Rate 1: 52 bpm Height: 6' SpO2: 98% Weight: 217 lbs 06/28/2016 Blood Pressure 1: 128/86 Code: 8480-6 BMI: 29.6 Code: 14266-0 Heart Rate 1: 69 bpm Height: 6' SpO2: 93% Weight: 218 lbs 04/27/2016 Blood Pressure 1: 118/82 Code: 8480-6 BMI: 29.3 Code: 70477-4 Heart Rate 1: 85 bpm Height: 6' SpO2: 98% Weight: 216 lbs 02/17/2016 Blood Pressure 1: 132/80 Code: 8480-6 BMI: 28.8 Code: 07384-9 Heart Rate 1: 94 bpm Height: 6' SpO2: 98% Weight: 212 lbs 01/20/2016 Blood Pressure 1: 120/70 Code: 8480-6 BMI: 29.7 Code: 77750-0 Heart Rate 1: 87 bpm Height: 6' SpO2: 92% Weight: 219 lbs 01/06/2016 Blood Pressure 1: 122/88 Code: 8480-6 BMI: 28.8 Code: 88788-7 Heart Rate 1: 83 bpm Height: 6' SpO2: 97% Weight: 212 lbs 12/16/2015 Blood Pressure 1: 98/62 Code: 8480-6 Heart Rate 1: 62 bpm Height: 6' SpO2: 90% Weight: 11/27/2015 Blood Pressure 1: 90/64 Code: 8480-6 Blood Pressure 1: 110/80 Code: 8480-6 Heart Rate 1: 91 bpm Height: 6' SpO2: 92% Weight: 07/30/2015 Blood Pressure 1: 112/82 Code: 8480-6 BMI: 30.5 Code: 26905-4 Heart Rate 1: 82 bpm Height: 6' SpO2: 92% Weight: 225 lbs 06/09/2015 Blood Pressure 1: 130/76 Code: 8480-6 BMI: 31.1 Code: 03739-9 Heart Rate 1: 65 bpm Height: 6' SpO2: 96% Weight: 229 lbs 04/29/2015 Blood Pressure 1: 118/78 Code: 8480-6 BMI: 30.7 Code: 64610-1 Heart Rate 1: 70 bpm Height: 6' Weight: 226 lbs 02/19/2015 Blood Pressure 1: 118/70 Code: 8480-6 BMI: 29.7 Code: 14861-8 Heart Rate 1: 68 bpm Height: 6' [...] III Diagnosis: Epistaxis[ICD10: R04.0] Mady Butcher MD, [facility] CPT-4: 04073 05/21/2019 ([id number]) 41332 EST. PATIENT, LEVEL IV Diagnosis: Essential (primary) hypertension[ICD10: I10] Diagnosis: Major depressive disorder, recurrent, mild[ICD10: F33.0] Diagnosis: Muscle weakness (generalized)[ICD10: M62.81] Diagnosis: Mixed hyperlipidemia[ICD10: E78.2] Lesley Butcher MD, [facility] CPT- 4: 36704 04/23/2019 ([id number]) 87585 EST. PATIENT, LEVEL IV Diagnosis: Essential (primary) hypertension[ICD10: I10] Diagnosis: Unsteadiness on feet[ICD10: R26.81] Diagnosis: Abdominal aortic aneurysm, without rupture[ICD10: I71.4] Lesley Butcher MD, [facility] CPT-4: 79109 03/05/2019 ([id number]) 93599 EST. PATIENT, LEVEL IV Diagnosis: Paroxysmal atrial fibrillation[ICD10: I48.0] Diagnosis: Essential (primary) hypertension[ICD10: I10] Diagnosis: Frequency of micturition[ICD10: R35.0] Merline Butcher MD, [facility] CPT-4: 82877 02/12/2019 ([id number]) 94172 EST. PATIENT, LEVEL V Diagnosis: Essential (primary) hypertension[ICD10: I10] Diagnosis: Dizziness and giddiness[ICD10: R42] Diagnosis: Vertigo of central origin, right ear[ICD10: H81.41] Lesley Butcher MD, [facility] CPT-4: 60002 01/29/2019 75524 EST. PATIENT, LEVEL III Diagnosis: Pleurodynia[ICD10: R07.81] Mady Butcher MD, [facility] CPT-4: 03275 2019 ([id number]) 88771 EST. PATIENT, LEVEL III Diagnosis: Other allergic rhinitis[ICD10: J30.89] Merline Butcher MD, [facility] CPT-4: 74901 01/08/2019 04466 EST. PATIENT, LEVEL IV Diagnosis: Other fatigue[ICD10: R53.83] Diagnosis: Obstructive sleep apnea (adult) (pediatric)[ICD10: G47.33] Diagnosis: Other malaise[ICD10: R53.81] Mady Butcher MD, [facility] CPT-4: 66364 12/25/2018 ([id number]) 50355 EST. PATIENT, LEVEL IV Diagnosis: Shortness of breath[ICD10: R06.02] Diagnosis: Other fatigue[ICD10: R53.83] Diagnosis: Obstructive sleep apnea (adult) (pediatric)[ICD10: G47.33] Diagnosis: Other malaise[ICD10: R53.81] Lesley Butcher MD, [facility] CPT-4: 92121 12/13/2018 ([id number]) 70436 EST. PATIENT, LEVEL IV Diagnosis: Shortness of breath[ICD10: R06.02] Diagnosis: Dizziness and giddiness[ICD10: R42] Diagnosis: Other fatigue[ICD10: R53.83] Diagnosis: Essential (primary) hypertension[ICD10: I10] Diagnosis: Muscle weakness (generalized)[ICD10: M62.81] Merline Butcher MD, [facility] CPT-4: 45281 11/27/2018 ([id number]) 24353 EST. PATIENT, LEVEL IV Diagnosis: Essential (primary) hypertension[ICD10: I10] Diagnosis: Vertigo of central origin, right ear[ICD10: H81.41] Diagnosis: Low back pain[ICD10: M54.5] Lesley Butcher MD, [facility] CPT-4: 28729 09/26/2018 ([id number]) 99939 EST. PATIENT, LEVEL III Diagnosis: Dizziness and giddiness[ICD10: R42] Diagnosis: Vertigo of central origin, right ear[ICD10: H81.41] Diagnosis: Essential (primary) hypertension[ICD10: I10] Lesley Butcher MD, [facility] CPT-4: 00613 07/26/2018 ([id number]) 83703 EST. PATIENT, LEVEL III Diagnosis: Essential (primary) hypertension[ICD10: I10] Lesley Butcher MD, [facility] CPT-4: 04142 06/12/2018 ([id number]) 40113 EST. PATIENT, LEVEL IV Diagnosis: Other iron deficiency anemias[ICD10: D50.8] Diagnosis: Weakness[ICD10: R53.1] Diagnosis: Diverticulosis of large intestine without perforation or abscess with bleeding[ICD10: K57.31] Lesley Butcher MD, [facility] CPT-4: 79085 05/10/2018 ([id number]) 20405 EST. PATIENT, LEVEL IV Diagnosis: Essential (primary) hypertension[ICD10: I10] Diagnosis: Major depressive disorder, recurrent, mild[ICD10: F33.0] Diagnosis: Sensorineural hearing loss, bilateral[ICD10: H90.3] Lesley Butcher MD, [facility] CPT-4: 12646 03/27/2018 ([id number]) Miscellaneous no charge Diagnosis: Essential (primary) hypertension[ICD10: I10] Mady Butcher MD, [facility] CPT-4: 61208 01/25/2018 ([id number]) 56019 EST. PATIENT, LEVEL IV Diagnosis: Essential (primary) hypertension[ICD10: I10] Diagnosis: Sensorineural hearing loss, bilateral[ICD10: H90.3] Diagnosis: Mixed hyperlipidemia[ICD10: E78.2] Diagnosis: Major depressive disorder, recurrent, mild[ICD10: F33.0] Lesley Butcher MD, [facility] CPT-4: 86058 01/24/2018 [id number] EST. PATIENT, LEVEL IV Diagnosis: Other malaise[ICD10: R53.81] Diagnosis: Fever, unspecified[ICD10: R50.9] Mady Butcher MD, [facility] CPT-4: 84030 12/08/2017 ([id number]) 43163 EST. PATIENT, LEVEL III Diagnosis: Essential (primary) hypertension[ICD10: I10] Lesley Butcher MD, [facility] CPT-4: 77118 10/27/2017 ([id number]) 56137 EST. PATIENT, LEVEL III Diagnosis: Benign prostatic hyperplasia with lower urinary tract symptoms[ICD10: N40.1] Diagnosis: Dysphagia, pharyngeal phase[ICD10: R13.13] Lesley Butcher MD, [facility] CPT-4: 14380 09/29/2017 ([id number]) 95887 EST. PATIENT, LEVEL IV Diagnosis: Essential (primary) hypertension[ICD10: I10] Diagnosis: Major depressive disorder, recurrent, mild[ICD10: F33.0] Diagnosis: Sensorineural hearing loss, bilateral[ICD10: H90.3] Lesely Butcher MD [facility] CPT-4: 90659 09/01/2017 ([id number]) 77434 EST. PATIENT, LEVEL IV Diagnosis: Essential (primary) hypertension[ICD10: I10] Diagnosis: Major depressive disorder, recurrent, mild[ICD10: F33.0] Diagnosis: Mixed hyperlipidemia[ICD10: E78.2] Lesley Butcher MD, [facility] CPT- 4: 91494 04/26/2017 ([id number]) 35286 EST. PATIENT, LEVEL IV Diagnosis: Essential (primary) hypertension[ICD10: I10] Diagnosis: Major depressive disorder, recurrent, mild[ICD10: F33.0] Diagnosis: Urge incontinence[ICD10: N39.41] Lesley Butcher MD, [facility] CPT-4: 21896 01/25/2017 ([id number]) 33110 EST. PATIENT, LEVEL IV Diagnosis: Essential (primary) hypertension[ICD10: I10] Diagnosis: Major depressive disorder, recurrent, mild[ICD10: F33.0] Diagnosis: Urge incontinence[ICD10: N39.41] Lesley Butcher MD, [facility] CPT-4: 16862 10/26/2016 ([id number]) 07096 EST. PATIENT, LEVEL III Diagnosis: Essential (primary) hypertension[ICD10: I10] Diagnosis: Major depressive disorder, recurrent, mild[ICD10: F33.0] Diagnosis: Urge incontinence[ICD10: N39.41] Lesley Butcher MD, [facility] CPT-4: 16160 09/27/2016 ([id number]) 44261 EST. PATIENT, LEVEL IV Diagnosis: Essential (primary) hypertension[ICD10: I10] Diagnosis: Encounter for immunization[ICD10: Z23] Diagnosis: Laceration without foreign body of left forearm, initial encounter[ICD10: S51.812A] Diagnosis: Laceration without foreign body of right forearm, initial encounter[ICD10: S51.811A] Diagnosis: Major depressive disorder, recurrent, mild[ICD10: F33.0] Lesley Butcher MD, [facility] CPT-4: 91996 06/28/2016 ([id number]) 41886 EST. 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 PATIENT, LEVEL V Diagnosis: Essential (primary) hypertension[ICD10: I10] Diagnosis: Major depressive disorder, recurrent, mild[ICD10: F33.0] Diagnosis: Idiopathic gout, left ankle and foot[ICD10: M10.072] Diagnosis: Mixed hyperlipidemia[ICD10: E78.2] Lesley Butcher MD, [facility] CPT- 4: 68630 02/17/2016 ([id number]) 38388 EST. 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 PATIENT, LEVEL IV Diagnosis: Weakness[ICD10: R53.1] Diagnosis: Gout, unspecified[ICD10: M10.9] Diagnosis: Hypotension, unspecified[ICD10: I95.9] Lesley Butcher MD, [facility] CPT-4: 95780 12/16/2015 ([id number]) Patient admitted to the hospital from clinic (NO CHARGE) Diagnosis: Hypoxemia[ICD10: R09.02] Diagnosis: Weakness[ICD10: R53.1] Diagnosis: Dyspnea, unspecified[ICD10: R06.00] Mady Butcher MD, [facility] CPT- 4: 37674I 11/27/2015 ([id number]) 96543 EST. PATIENT, LEVEL III Diagnosis: Essential (primary) hypertension[ICD10: I10] Diagnosis: Gastro-esophageal reflux disease without esophagitis[ICD10: K21.9] Lesley Butcher MD, [facility] CPT-4: 97477 07/30/2015 ([id number]) 27400 EST. PATIENT, LEVEL III Diagnosis: ESSENTIAL HYPERTENSION[ICD9: 401.9] Merline Butcher MD, [facility] CPT-4: 16119 06/09/2015 ([id number]) 54533 EST. PATIENT, LEVEL III Diagnosis: ESSENTIAL HYPERTENSION[ICD9: 401.9] Lesley Butcher MD, [facility] CPT- 4: 42092 04/29/2015 ([id number]) OFFICE/OUTPATIENT VISIT NEW Diagnosis: ESSENTIAL HYPERTENSION[ICD9: 401.9] Diagnosis: DEPRESSIVE DISORDER NEC[ICD9: 311] Diagnosis: Enlarged prostate[ICD9: 600.00] Diagnosis: Nasal inflammation due to allergen[ICD9: 477.9] Lesley Butcher MD, [facility] CPT-4: 98918 02/19/2015 Plan of Care Planned Activity Notes Codes Status Date Visit Plan: Left nare ulceration - silver nitrated utilized to cauterize area, pt tolerated procedure well, pt is to avoid nasal sprays, but continue with oral allergy medications - pt is to notify clinic if symptoms return, or with any other changes, questions, or concerns. 05/21/2019 Patient Education: Patient Medication Summary Completed 05/21/2019 Appointment: Lesley Butcher WPtel: [address] [place], [place] [phone] (15 min) Moderate 05/07/2019 Visit Plan: Hypertension [...] aneurysm - defer to Dr. Valentine at [facility]. 04/23/2019 Appointment: Lesley Butcher WPtel: [phone] [facility] (15 min) Moderate 04/23/2019 Appointment: Merline Rose WPtel: [phone] [phone] [place] (30 min) Complex 04/23/2019 Patient [...] and discussion. 03/05/2019 [facility]ment[phone] (15 min) Moderate 03/05/2019 Patient Education: Patient Medication Summary Completed 03/05/2019 Visit Plan: Afib-new diagnosis with cardiology -Dr Deleon -now on coumadin-will return to [place] in 2 weeks to discuss watchman device IQH-qlyrapdkjy-qf changes Urinary frequency and urgency -check UA -patient unable to void at appt -will bring back sample 02/12/2019 [facility]ment: [phone] (30 min) Complex 02/12/2019 Patient Education: Patient [...] when he had previous blockages - his nurse ortho in [place] does not seem to be as interested as his family would like - they are wondering about transitioning back to someone from his previous nurse ortho group. They have a potential appt pending. [...] when he had previous blockages - his nurse ortho in [place] does not seem to be as interested as his family would like - they are wondering about transitioning back to someone from his previous nurse ortho group. They have a potential appt pending. I spent 45 minutes with the patient and his family in direct contact and discussion. 01/29/2019 Appointment: Les[facility] But[facility]el[phone] (30 min) Complex 01/29/2019 Patient Education: Patient Medication Summary Completed 01/29/2019 Visit Plan: Left rib pain - x-ray pending - The pt is to use prn antiinflammatories to manage acute pain. The patient is to call the office if the pain is worsening or does not improve. 2019 Appointment: Mady Dunne WPtel: [facility] (30 min) Complex 2019 Patient Education: [...] spray. 01/08/2019 Appointment: Merline Rose WPtel: [phone] [place] (30 min) Complex 01/08/2019 Patient Education: Patient Medication Summary Completed 01/08/2019 Visit Plan: Fatigue, shortness of breath, dizziness - pt is to continue PT, pt is to follow up with Dr. Panda and Dr. Harvey and is to notify clinic with any changes in the current treatment plan. 12/25/2018 Appointment: Mady Dunne WPtel: [facility] (15 min) Moderate 12/25/2018 Patient Education: [...] 96% 12/13/2018 Appointment: Lesley Butcher WPtel: [facility] (15 min) Moderate 12/13/2018 Patient Education: Patient Medication Summary Completed 12/13/2018 Visit Plan: TYB-csldhlj-edabysvds of breath -patient reports worsening of chronic symptoms -will check EKG and cardiac enzymes to evaluate for acute changes -recommend patient follow up with his nurse ortho, Dr Sharyn vu -patient, and daughter verbalized understanding of plan. Generalized weakness-discussed PT referral after cleared by cardiology -patient's will call us when she wants to have it set up HTN-no change but monitor at home 11/27/2018 Appointment: Merline Rose WPtel: [phone] [place] (15 min) Moderate 11/27/2018 Patient [...] back pain - keep appt with Dr. Monetro - denisse to hold plavix for 72 hours prior to planned back injection. Skin lesion left lower lip - discussed with patient he needs this lesion biopsied since it has not healed after the last two cryotherapy sessions. 09/26/2018 Appointment: Lesley Butcher WPtel: [facility] [place] (15 min) Moderate 09/26/2018 Patient Education: [...] surrogate. 08/10/2018 Appointment: Mady Dunne WPtel: [phone] [facility] [facility] - Annual Wellness Visit 08/10/2018 Patient Education: Patient Medication Summary Completed 08/10/2018 Visit Plan: Vertigo - vestibular/cochlearVestibular therapy with Allan Ingrma. Hypertension - well controlled - continue with current medications, continue with no added salt diet. Pt has been encouraged to exercis e daily. The pt has been advised to call the office if there are any acute concerns about change in blood pressure readings at home. 07/26/2018 Appointment: Lesley Butcher WPtel: [facility] (15 min) Moderate 07/26/2018 Patient Education: Patient [...] dexamethasone. 06/12/2018 Appointment: Lesley Butcher WPtel: [phone] [facility] (15 min) Moderate 06/12/2018 Patient Education: Patient Medication Summary Completed 06/12/2018 Visit Plan: Diverticulosis with recent GI bleeding - improved - continue with supportive care, avoid foods which cause any abdominal pain - monitor symptoms - call if any pain or bleeding recurs. Anemia - check labs today. Weakness - continue with increasing of activity. 05/10/2018 Appointment: Lesley Butcher [facility]Ptel[phone] [place] (30 min) Complex 05/10/2018 Patient Education: [...] implant. 03/27/2018 Appointment: Les[facility] Butcher [facility]Ptel[phone] (15 min) Moderate 03/27/2018 Patient Education: [...] medications. 01/24/2018 Appointment: Lesley Butcher [facility]el: [facility] [facility] [place] (15 min) Moderate 01/24/2018 Patient Education: Patient Medication Summary Completed 01/24/2018 Visit Plan: Influenza - pt started on tamiflu - pt to start on anti-inflammatories, tylenol and monitor symptoms. Pt to call if not improving. Pt to alert any close contacts as to illness. 12/08/2017 Appointment: M[facility] Dunne [facility]Ptel: [phone] [facility] (30 min) Complex 12/08/2017 Patient Education: [...] at home. 10/27/2017 Appointment: Lesley Butcher WPtel: [address] [facility] (15 min) Moderate 10/27/2017 Patient Education: Patient Medication Summary Completed 10/27/2017 Referral: External, Ordering Provider Referral Initiated 10/12/2017 Visit Plan: BPH - continue with dutasteride and flomax Dysphagia - referral to Dr. Kumar for EGD - question stricture - dysphagia intermittently - hx of stricture. 09/29/2017 Appointment: Lesley Butcher WPtel: [phone] [facility] (15 min) Moderate 09/29/2017 Patient Education: Patient Medication Summary Completed 09/29/2017 Care Plan: Referral Order SNOMED-CT : [id number] Pending 09/29/2017 Visit Plan: Hypertension - well [...] recommended patient to have an evaluation at [facility] to see if he has potential for cochlear implant. 09/01/2017 Appointment: Lesley Butcher WPtel: [phone] [facility] (15 min) Moderate 09/01/2017 Patient Education: Patient Medication Summary Completed 09/01/2017 Care Plan: Referral Order SNOMED-CT : [id number] Pending 09/01/2017 Visit Plan: Medicare Exam - [...] surrogate. 08/03/2017 Appointment: Mady Dunne WPtel: [phone] [facility] MCR - Welcome to Medicare visit 08/03/2017 [...] current medications. 04/26/2017 Appointment: Lesley Butcher WPtel: [facility] (15 min) Moderate 04/26/2017 Patient Education: Patient [...] 10mg daily. 01/25/2017 Appointment: Lesley Butcher WPtel: [facility] (30 min) Complex 01/25/2017 Patient Education: Patient [...] [place] 10/26/2016 Appointment: Lesley Butcher WPtel: [facility] (15 min) Moderate 10/26/2016 Patient [...] occur. 09/27/2016 Appointment: Lesley Butcher WPtel: [phone] [facility] (15 min) Moderate 09/27/2016 Patient [...] shelli andrea 06/28/2016 Appointment: Lesley Butcher WPtel: [phone] [facility] (15 min) Moderate 06/28/2016 Patient [...] 1 month 02/17/2016 Appointment: Merline Rose WPtel: [address] [place], [place] [id number] (30 min) Complex 02/17/2016 Patient Education: Patient [...] Summary Completed 12/16/2015 Appointment: Lesley Butcher WPtel: [facility] (15 min) Moderate 12/04/2015 Appointment: Lesley Butcher WPtel: [facility] (15 min) Moderate 12/02/2015 Visit Plan: [...] PHARMACY 07/30/2015 Appointment: Lesley Butcher WPtel: [phone] [facility] (15 min) Moderate 07/30/2015 Patient Education: Patient [...] home. 04/29/2015 Appointment: Lesley Butcher WPtel: [phone] [facility] (15 min) Moderate 04/29/2015 Patient Education: Patient [...] External, Ordering Provider Referral Appointment Requested Referral: [facility] 09/12 Referral info faxed Appointment Requested Referral: [facility] Referral Appointment Requested Instructions Comment . [...] planned injection in back and call the carburetor mechanic about a biopsy of the lesion on [...] -Dr Deleon -now on coumadin-will return to [place] in 2 weeks to discuss watchman device SSL-[id number]-jg changes Urinary frequency and urgency -check UA -patient unable to void at [facility] -will bring back sample . Hypertension - [...] aneurysm - defer to Dr. Valentine at [facility]. Take 1/2 tab of Citalopram daily for [...] ILLNESS. CHECK CARDIAC ENYZMES AND EKG . VEW-[id number]-[id number] of breath -patient reports worsening of chronic symptoms -will check EKG and cardiac enzymes to evaluate for acute changes -recommend patient follow up with his nurse ortho, Dr Stokes -patient, and daughter verbalized understanding [...] recommended patient to have an evaluation at [facility] to see if he has [...] when he had previous blockages - his nurse ortho in [place] does not seem to be as interested as his family would like - they are wondering about transitioning back to someone from his previous nurse ortho group. They have a potential appt pending. [...] when he had previous blockages - his nurse ortho in [place] does not seem to be as interested as his family would like - they are wondering about transitioning back to someone from his previous nurse ortho group. They have a potential appt pending. I spent 45 minutes with the patient and his family in direct contact and discussion.
--- OUTSIDE RECORDS SUMMARY | 2019-05-25 01:42 | XMS REPORT | CCD ---
Author Author [facility] Organization [facility] Address [address] [place] [address] Phone Care Team Providers Care Integration Specialist Name Role Phone PP Unavailable CCM Unavailable Summary Purpose Interface Exchange Insurance Providers Payer name Policy type / Coverage type Covered alliance party ID Effective Begin Date Effective End Date WPS Medicare Part B Medicare Part B [id number] 2018 Unknown [facility] Medicare Part B [id number] 2018 Unknown Family history Father Diagnosis Age At Onset Hypertension Unknown Coronary Artery Disease Unknown Sister Diagnosis Age At Onset Heart disease Unknown Mother Diagnosis Age At Onset Coronary Artery Disease Unknown Hypertension Unknown Social History Social History Element Codes Description Effective Dates Marital status Unknown 02/19/2015 Number of children Unknown 2 02/19/2015 Employment Unknown Retired 02/19/[address]: 149417722 Has never smoked or chewed tobacco 02/19/2015 Alcohol history Unknown occasionally drinks alcohol 02/19/2015 Allergies, Adverse Reactions, Alerts Substance Reaction Codes Entered Date Inactivated Date Status bactrim RxNorm: 617195 12/19/2015 No Inactive Date Active ciprofloxacin RxNorm: 22206 02/18/2015 No Inactive Date Active IV DYE, [...] Fill Instructions atorvastatin 80 mg tablet RxNorm: 635769 1 Tablet(s) PO daily 04/23/2019 No Stop Date Active Vitamin D3 1,000 unit capsule RxNorm: 037278 1 Capsule(s) PO daily 04/23/2019 No Stop Date Active nitroglycerin 0.4 mg sublingual tablet RxNorm: 569069 1 Tablet(s) SL x3 in 15 min as needed 03/05/2019 No Stop Date Active losartan 50 mg tablet RxNorm: 372208 1 Tablet(s) PO daily 02/16/2019 02/10/2020 Active Requip 0.25 mg tablet RxNorm: 639061 1 Tablet(s) PO QHS 01/29/2019 01/23/2020 Active Flomax 0.4 mg capsule RxNorm: 054046 TAKE 1 CAPSULE BY MOUTH ONCE DAILY IN THE EVENING 01/25/2019 No Stop Date Active Requip 0.25 mg tablet RxNorm: 110082 1 Tablet(s) PO QHS 2019 01/28/2019 Inactive pantoprazole 40 mg tablet,delayed release RxNorm: 584846 TAKE ONE TABLET BY MOUTH ONCE DAILY AT BEDTIME 11/27/2018 No Stop Date Active atorvastatin 40 mg tablet RxNorm: 047093 1 Tablet(s) PO daily 09/26/2018 10/25/2018 Inactive dexamethasone 0.5 mg tablet RxNorm: 183130 TAKE 1 TABLET BY MOUTH ONCE DAILY 08/29/2018 04/22/2019 Inactive clonazepam 1 mg tablet RxNorm: 376336 1/2 Tablet(s) PO QHS 08/24/2018 04/22/2019 Inactive allopurinol 100 mg tablet RxNorm: 350109 TAKE ONE TABLET BY MOUTH ONCE DAILY 08/03/2018 No Stop Date Active citalopram 40 mg tablet RxNorm: 892630 TAKE ONE TABLET BY MOUTH ONCE DAILY 06/13/2018 No Stop Date Active Kenalog 40 mg/mL suspension for injection RxNorm: 6600330 Milliliter(s) Inj 06/12/2018 06/12/2018 Inactive clonazepam 1 mg tablet RxNorm: 055044 1 Tablet(s) PO QHS 06/12/2018 08/23/2018 Inactive clonazepam 1 mg tablet RxNorm: 410857 1/2 Tablet(s) TAKE ONE TABLET BY MOUTH ONCE DAILY AT BEDTIME AND ONE TABLET THREE TIMES DAILY NEEDED 05/24/2018 06/11/2018 Inactive citalopram 40 mg tablet RxNorm: 133170 1/2 Tablet(s) TAKE ONE TABLET BY MOUTH ONCE DAILY 05/24/2018 09/25/2018 Inactive losartan 50 mg tablet RxNorm: 869875 1/2 Tablet(s) PO daily 05/24/2018 02/15/2019 Inactive spironolactone 25 mg tablet RxNorm: 691468 TAKE ONE TABLET BY MOUTH ONCE DAILY 05/22/2018 No Stop Date Active dexamethasone 0.5 mg tablet RxNorm: 928137 TAKE ONE TABLET BY MOUTH ONCE DAILY 02/21/2018 08/28/2018 Inactive Flomax 0.4 mg capsule RxNorm: 734131 TAKE ONE CAPSULE BY MOUTH ONCE DAILY IN THE EVENING 12/19/2017 01/24/2019 Inactive Tamiflu 75 mg capsule RxNorm: 920784 1 Capsule(s) PO BID 12/08/2017 12/12/2017 Inactive clonazepam 1 mg tablet RxNorm: 707555 Tablet(s) TAKE ONE TABLET BY MOUTH ONCE DAILY AT BEDTIME AND ONE TABLET THREE TIMES DAILY NEEDED 11/28/2017 01/26/2018 Inactive pantoprazole 40 mg tablet,delayed release RxNorm: 603428 TAKE ONE TABLET BY MOUTH ONCE DAILY AT BEDTIME 11/07/2017 11/26/2018 Inactive allopurinol 100 mg tablet RxNorm: 860379 TAKE ONE TABLET BY MOUTH ONCE DAILY 10/03/2017 08/02/2018 Inactive pantoprazole 40 mg tablet,delayed release RxNorm: 612683 1 Tablet(s) PO BID 09/01/2017 05/28/2018 Inactive Vitamin B-6 100 mg tablet RxNorm: 459736 1 Tablet(s) PO daily 09/01/2017 06/11/2018 Inactive dutasteride 0.5 mg capsule RxNorm: 538388 1 Capsule(s) PO QPM 09/01/2017 06/11/2018 Inactive spironolactone 25 mg tablet RxNorm: 900426 TAKE ONE TABLET BY MOUTH ONCE DAILY 08/15/2017 05/21/2018 Inactive citalopram 40 mg tablet RxNorm: 921175 TAKE ONE TABLET BY MOUTH ONCE DAILY 08/08/2017 05/04/2018 Inactive dexamethasone 0.5 mg tablet RxNorm: 770839 TAKE ONE TABLET BY MOUTH ONCE DAILY 08/08/2017 11/05/2017 Inactive clonazepam 1 mg tablet RxNorm: 475082 1 Tablet(s) PO QHS AND 1 TAB PO TID PRN 05/12/2017 05/13/2017 Inactive clonazepam 1 mg tablet RxNorm: 660684 TAKE ONE TABLET BY MOUTH ONCE DAILY AT BEDTIME AND ONE THREE TIMES DAILY NEEDED 05/12/2017 04/22/2019 Inactive oxybutynin chloride ER 10 mg tablet,extended release 24 hr RxNorm: 655851 1 Tablet(s) PO daily 04/29/2017 08/02/2017 Inactive dexamethasone 0.5 mg tablet RxNorm: 907324 TAKE ONE TABLET BY MOUTH ONCE DAILY 02/14/2017 04/14/2017 Inactive Flomax 0.4 mg capsule RxNorm: 290892 TAKE ONE CAPSULE BY MOUTH ONCE DAILY IN THE EVENING 02/14/2017 11/10/2017 Inactive pantoprazole 40 mg tablet,delayed release RxNorm: 960786 TAKE ONE TABLET BY MOUTH ONCE DAILY AT BEDTIME 02/14/2017 08/31/2017 Inactive oxybutynin chloride ER 10 mg tablet,extended release 24 hr RxNorm: 881448 1 Tablet(s) PO daily 01/25/2017 04/24/2017 Inactive dexamethasone 0.5 mg tablet RxNorm: 243350 TAKE ONE TABLET BY MOUTH ONCE DAILY 11/10/2016 12/09/2016 Inactive oxybutynin chloride ER 5 mg tablet,extended release 24 hr RxNorm: 770744 1 Tablet(s) PO daily 10/28/2016 10/27/2016 Inactive oxybutynin chloride ER 5 mg tablet,extended release 24 hr RxNorm: 194995 1 Tablet(s) PO daily 10/28/2016 01/24/2017 Inactive Detrol LA 2 mg capsule,extended release RxNorm: 612053 1 Capsule(s) PO QPM 10/26/2016 10/27/2016 Inactive clonazepam 1 mg tablet RxNorm: 550303 1 Tablet(s) PO QHS AND 1 TAB PO TID PRN 10/20/2016 04/17/2017 Inactive dexamethasone 0.5 mg tablet RxNorm: 222068 TAKE ONE TABLET BY MOUTH ONCE DAILY 10/06/2016 11/04/2016 Inactive allopurinol 100 mg tablet RxNorm: 720715 1 Tablet(s) PO daily 09/30/2016 09/24/2017 Inactive Vesicare 5 mg tablet RxNorm: 672389 1 Tablet(s) PO QPM 09/27/2016 12/12/2016 Inactive spironolactone 25 mg tablet RxNorm: 854891 1 Tablet(s) PO daily 08/06/2016 07/31/2017 Inactive citalopram 40 mg tablet RxNorm: 767142 1 Tablet(s) PO daily 06/28/2016 06/22/2017 Inactive iron ER 159 mg (45 mg iron) tablet,extended release RxNorm: 340692 1 Tablet(s) PO daily 04/27/2016 08/31/2017 Inactive dexamethasone 0.5 mg tablet RxNorm: 494486 1/2 Tablet(s) PO daily 04/27/2016 02/20/2018 Inactive allopurinol 100 mg tablet RxNorm: 352109 1 Tablet(s) PO daily 04/27/2016 09/29/2016 Inactive Plavix 75 mg tablet RxNorm: 883579 1 Tablet(s) PO daily 04/27/2016 02/11/2019 Inactive clonazepam 1 mg tablet RxNorm: 760179 1 Tablet(s) PO QHS and 1 tab po TID prn 04/14/2016 10/07/2016 Inactive allopurinol 100 mg tablet RxNorm: 224891 1 Tablet(s) PO daily 02/17/2016 04/26/2016 Inactive citalopram 20 mg tablet RxNorm: 407435 1 Tablet(s) PO daily 01/20/2016 06/27/2016 Inactive Flomax 0.4 mg capsule RxNorm: 066377 1 Capsule(s) PO QPM 01/20/2016 01/13/2017 Inactive [SAVINGS FOR NON-COVERED DRUGS -- BIN:[id number], PCN: ASPROD1, Group: XXXXX, ID# XXXXXXX, Questions: . THIS IS NOT INSURANCE.] pantoprazole 40 mg tablet,delayed release RxNorm: 988117 1 Tablet(s) PO QHS 01/20/2016 01/13/2017 Inactive Colcrys 0.6 mg tablet RxNorm: 161625 1 Tablet(s) PO daily 01/06/2016 03/05/2016 Inactive take daily x 7 days then daily as needed for gout flair colchicine 0.6 mg tablet RxNorm: 074582 1 Tablet(s) PO BID 12/30/2015 01/01/2016 Inactive doxycycline hyclate 100 mg tablet RxNorm: 446118 1 Tablet(s) PO BID 12/19/2015 12/28/2015 Inactive doxycycline hyclate 100 mg tablet RxNorm: 599279 1 Tablet(s) PO BID 12/19/2015 12/18/2015 Inactive allopurinol 100 mg tablet RxNorm: 026357 1 Tablet(s) PO daily 12/16/2015 02/16/2016 Inactive colchicine 0.6 mg tablet RxNorm: 063926 Tablet(s) PO 1.2 mg PO in the morning and 0.6 mg at night for 2 days. 12/16/2015 12/29/2015 Inactive allopurinol 100 mg tablet RxNorm: 919344 1 Tablet(s) PO daily 12/16/2015 12/15/2015 Inactive Protonix 40 mg tablet,delayed release RxNorm: 869128 1 Tablet(s) PO daily 12/16/2015 01/14/2016 Inactive Bactrim DS 800 mg-160 mg tablet RxNorm: 536009 1 Tablet(s) PO BID 12/16/2015 12/18/2015 Inactive colchicine 0.6 mg tablet RxNorm: 248969 Tablet(s) PO 1.2 mg for the first dose and 0.6 mg an hour after 12/15/2015 12/15/2015 Inactive dexamethasone 0.5 mg tablet RxNorm: 342053 1 Tablet(s) PO 12/12/2015 02/09/2016 Inactive Plavix 75 mg tablet RxNorm: 094373 1 Tablet(s) PO every other day 12/12/2015 04/09/2016 Inactive nitroglycerin 0.4 mg sublingual tablet RxNorm: 303574 1 Tablet(s) SL x3 in 15 min as needed 12/12/2015 04/26/2016 Inactive Anthony 5 mg-325 mg tablet RxNorm: 115482 1-2 Tablet(s) PO Q6 as needed 12/11/2015 09/26/2016 Inactive clonazepam 1 mg tablet RxNorm: 587714 1 Tablet(s) PO QHS and 1 tab po TID prn 12/11/2015 04/22/2019 Inactive clonazepam 1 mg tablet RxNorm: 431890 1 Tablet(s) PO QHS and 1 tab po TID prn 12/04/2015 12/10/2015 Inactive Flomax 0.4 mg capsule RxNorm: 347420 1 Capsule(s) PO QPM 09/22/2015 01/19/2016 Inactive [SAVINGS FOR NON-COVERED DRUGS -- BIN:[id number], PCN: ASPROD1, Group: XXXXX, ID# [id number], Questions: . THIS IS NOT INSURANCE.] Flomax 0.4 mg capsule RxNorm: 648244 1 Capsule(s) PO QPM 09/16/2015 09/21/2015 Inactive [SAVINGS FOR NON-COVERED DRUGS -- BIN:[id number], PCN: ASPROD1, Group: XXXXX, ID# [id number], Questions: . THIS IS NOT INSURANCE.] clonazepam 1 mg tablet RxNorm: 629184 1 Tablet(s) PO QHS 08/29/2015 12/03/2015 Inactive coenzyme Q10 10 mg tablet RxNorm: 482796 1 Tablet(s) PO daily 07/30/2015 01/05/2016 Inactive spironolactone 25 mg tablet RxNorm: 427448 1 Tablet(s) PO daily 07/28/2015 07/21/2016 Inactive spironolactone 25 mg tablet RxNorm: 177449 1 Tablet(s) PO daily 07/22/2015 07/27/2015 Inactive clonazepam 1 mg tablet RxNorm: 284323 1 Tablet(s) PO QHS 05/23/2015 08/28/2015 Inactive losartan 25 mg tablet RxNorm: 913979 1 Tablet(s) PO daily 02/19/2015 03/20/2015 Inactive Flonase Allergy Relief 50 mcg/actuation nasal spray,suspension RxNorm: 1 [place] NASAL BID 02/19/2015 04/26/2016 Inactive [SAVINGS FOR NON-COVERED DRUGS -- BIN:[id number], PCN: ASPROD1, Group: XXXXX, ID# [id number], Questions: . THIS IS NOT INSURANCE.] Flomax 0.4 mg capsule RxNorm: 585462 1 Capsule(s) PO QPM 02/19/2015 09/15/2015 Inactive [SAVINGS FOR NON-COVERED DRUGS -- BIN:221263, PCN: ASPROD1, Group: XXXXX, ID# [id number], Questions: . THIS IS NOT INSURANCE.] citalopram 20 mg tablet RxNorm: 574118 1 Tablet(s) PO daily 02/19/2015 03/20/2015 Inactive atenolol 25 mg tablet RxNorm: 924024 1 Tablet(s) PO daily 02/19/2015 03/20/2015 Inactive Lipitor 20 mg tablet RxNorm: 860802 1 Tablet(s) PO daily 02/19/2015 03/20/2015 Inactive Flonase Allergy Relief 50 mcg/actuation nasal spray,suspension RxNorm: 1491876 1 [place] NASAL QHS No Start Date Active amiodarone 200 mg tablet RxNorm: 524159 1 Tablet(s) PO TID No Start Date Active Vitamin D3 5,000 unit tablet RxNorm: 040258 1 Tablet(s) PO daily No Start Date Active warfarin 3 mg tablet RxNorm: 285248 1 Tablet(s) PO daily No Start Date Active 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 Dr Deleon Rachel 180 mg tablet RxNorm: 087197 1 Tablet(s) PO daily No Start Date Active Centrum Complete oral RxNorm: 93545 oral No Start Date Active aspirin 325 mg tablet RxNorm: 072129 1 Tablet(s) PO daily No Start Date Active glucosamine HCl 1,500 mg tablet RxNorm: 768209 1 Tablet(s) with 1200 mg chrondroitin PO daily No Start Date 08/01/2018 Inactive vitamin B complex oral RxNorm: 52860 oral No Start Date 04/22/2019 Inactive Claritin-D 24 Hour oral RxNorm: 394184 oral No Start Date 01/07/2019 Inactive ranitidine 150 mg tablet RxNorm: 736439 1 Tablet(s) PO TID No Start Date 12/11/2015 Inactive Rachel oral RxNorm: 538491 oral No Start Date 04/23/2019 Inactive Lipitor oral RxNorm: 23455 oral No Start Date 04/23/2019 Inactive Anthony 5 mg-325 mg tablet RxNorm: 121861 1-2 Tablet(s) PO Q6 as needed No Start Date 12/10/2015 Inactive krill oil oral RxNorm: 16598 oral No Start Date 08/07/2018 Inactive Vitamin B-6 100 mg tablet RxNorm: 378668 1 Tablet(s) PO TID No Start Date 08/31/2017 Inactive spironolactone 25 mg tablet RxNorm: 227500 1 Tablet(s) PO daily No Start Date 07/21/2015 Inactive Vitamin D3 oral RxNorm: 2418 oral No Start Date 02/17/2016 Inactive clonazepam 1 mg tablet RxNorm: 939578 1 Tablet(s) PO daily No Start Date 05/22/2015 Inactive Glucosamine oral RxNorm: 4845 oral No Start Date 04/26/2016 Inactive cetirizine 10 mg tablet RxNorm: 2512230 1 Tablet(s) PO daily No Start Date 01/07/2019 Inactive losartan 50 mg tablet RxNorm: 921794 1 Tablet(s) PO daily No Start Date 05/23/2018 Inactive Plavix 75 mg tablet RxNorm: 896863 1 Tablet(s) PO every other day No Start Date 12/11/2015 Inactive Osteo Bi-Flex oral RxNorm: 1121988 oral No Start Date 09/01/2017 Inactive iron ER 159 mg (45 mg iron) tablet,extended release RxNorm: 565098 1 Tablet(s) PO BID No Start Date 04/26/2016 Inactive amlodipine 5 mg tablet RxNorm: 868894 1 Tablet(s) PO daily No Start Date 01/05/2016 Inactive aspirin 81 mg tablet,delayed release RxNorm: 767503 1 Tablet(s) PO daily No Start Date 05/09/2018 Inactive aspirin 81 mg capsule,delayed release RxNorm: 576554 1 Capsule(s) PO daily No Start Date 04/22/2019 Inactive dexamethasone 0.5 mg tablet RxNorm: 729352 1 Tablet(s) PO No Start Date 12/11/2015 Inactive Vitamin B-12 1,000 mcg tablet RxNorm: 206440 6 Tablet(s) PO every other day No Start Date 06/11/2018 Inactive Aleve 220 mg tablet RxNorm: 234108 Tablet(s) PO as needed No Start Date 04/22/2019 Inactive Vitamin D3 1,000 unit capsule RxNorm: 511395 2 Capsule(s) PO daily No Start Date 04/22/2019 Inactive colchicine 0.6 mg tablet RxNorm: 452166 Tablet(s) PO 1.2 mg for the first dose and 0.6 mg an hour after No Start Date 12/14/2015 Inactive nitroglycerin 0.4 mg sublingual tablet RxNorm: 368039 1 Tablet(s) SL x3 in 15 min as needed No Start Date 12/11/2015 Inactive Fish Oil 1,000 mg capsule RxNorm: 1 Capsule(s) PO daily No Start Date 04/26/2016 Inactive Ecotrin Low Strength 81 mg tablet,enteric coated RxNorm: 4580760 1 Tablet(s) PO daily No Start Date 09/27/2016 Inactive Carafate 1 gram tablet RxNorm: 708769 1 Tablet(s) PO every other day No Start Date 04/22/2019 Inactive Medication Administered Medication Codes Instructions Start Date Status Kenalog 40 mg/mL suspension for injection RxNorm: 3922940 Milliliter 06/12/2018 No longer Active Immunizations Vaccine [...] 30.4 pg 10/20/2018 Cbc With Differential Ord2 Darke% 5.7 % 10/20/2018 Cbc With Differential Ord2 [...] 1.69 K/ul 10/20/2018 Cbc With Differential Ord2 Darke ABS# 0.6 K/ul 10/20/2018 Cbc With Differential Ord2 Eos ABS# 0.0 K/ul 10/20/2018 Cbc With Differential Ord2 Baso ABS# 0.0 K/ul 10/20/2018 Comp Metabolic Itf253 NA 140 mEq/L 10/20/2018 Comp Metabolic Uto653 K 4.0 mEq/L 10/20/2018 Comp Metabolic Lls778 CL 104 mEq/L 10/20/2018 Comp Metabolic Pcv260 CO2 28.0 mEq/L 10/20/2018 Comp Metabolic Dej750 ANION GAP 12 10/20/2018 Comp Metabolic Rjb162 GLUCOSE 113 mg/dL 10/20/2018 Comp Metabolic Tfu770 Creat 1.0 mg/dL 10/20/2018 Comp Metabolic Tfg763 eGFR 75 ml/min/1.73m2 10/20/2018 Comp Metabolic Kmt303 BUN 18 mg/dL 10/20/2018 Comp Metabolic Paj488 B/C Ratio 17.8 Ratio 10/20/2018 Comp Metabolic Vol593 CALCIUM 9.8 mg/dL 10/20/2018 Comp Metabolic Zax974 ALK PHOS 70 U/L 10/20/2018 Comp Metabolic Zqf955 AST(SGOT) 15 U/L 10/20/2018 Comp Metabolic Pfb025 ALT(SGPT) 18 U/L 10/20/2018 Comp Metabolic Ppc282 BILI T 1.1 mg/dL 10/20/2018 Comp Metabolic Rvw847 ALBUMIN 4.4 g/dL 10/20/2018 Comp Metabolic Isx742 TPRO 6.9 g/dL 10/20/2018 Comp Metabolic Hke275 GLOB 2.5 g/dL 10/20/2018 Comp Metabolic Huu434 A/G Ratio 1.7 Ratio 10/20/2018 Comp Metabolic Krj423 Osmo 282 mOsmo 10/20/2018 Urinalysis Ord28 U-Color [...] 29.0 pg 07/14/2018 Cbc With Differential Ord2 Darke% 7.5 % 07/14/2018 Cbc With Differential Ord2 [...] 1.92 K/ul 07/14/2018 Cbc With Differential Ord2 [place] ABS# 0.4 K/ul 07/14/2018 Cbc With Differential Ord2 Eos ABS# 0.2 K/ul 07/14/2018 Cbc With Differential Ord2 Baso ABS# 0.0 K/ul 07/14/2018 Renal Lea310 NA 140 mEq/L 07/14/2018 Renal Xqu860 K 4.2 mEq/L 07/14/2018 Renal Qir577 CL 103 mEq/L 07/14/2018 Renal Qlw746 CO2 29.0 mEq/L 07/14/2018 Renal Rxz520 ANION GAP 12 07/14/2018 Renal Xgv102 Osmo 280 mOsmo 07/14/2018 Renal Wpt785 GLUCOSE 95 mg/dL 07/14/2018 Renal Czo902 BUN 15 mg/dL 07/14/2018 Renal Oyp912 Creat 1.2 mg/dL 07/14/2018 Renal Svz844 eGFR 64 ml/min/1.73m2 07/14/2018 Renal Pcw232 B/C Ratio 12.8 Ratio 07/14/2018 Renal Tjl308 CALCIUM 9.6 mg/dL 07/14/2018 Renal Tma589 PHOS 3.2 mg/dL 07/14/2018 Renal Zqk953 ALBUMIN 4.4 g/dL 07/14/2018 Magnesium Ord90 Mag [...] 29.7 pg 06/08/2018 Cbc With Differential Ord2 Darke% 8.7 % 06/08/2018 Cbc With Differential Ord2 [...] 2.14 K/ul 06/08/2018 Cbc With Differential Ord2 [place] ABS# 0.5 K/ul 06/08/2018 Cbc With Differential Ord2 Eos ABS# 0.2 K/ul 06/08/2018 Cbc With Differential Ord2 Baso ABS# 0.0 K/ul 06/08/2018 Comp Metabolic Awh737 NA 139 mEq/L 06/08/2018 Comp Metabolic Tyq256 K 4.6 mEq/L 06/08/2018 Comp Metabolic Cyt491 CL 105 mEq/L 06/08/2018 Comp Metabolic Kzr426 CO2 26.0 mEq/L 06/08/2018 Comp Metabolic Sdg987 ANION GAP 13 06/08/2018 Comp Metabolic Jqc297 GLUCOSE 95 mg/dL 06/08/2018 Comp Metabolic Mtf369 Creat 1.2 mg/dL 06/08/2018 Comp Metabolic Jxb296 eGFR 59 ml/min/1.73m2 06/08/2018 Comp Metabolic Fey273 BUN 12 mg/dL 06/08/2018 Comp Metabolic Put538 B/C Ratio 9.7 Ratio 06/08/2018 Comp Metabolic Yvs235 CALCIUM 9.9 mg/dL 06/08/2018 Comp Metabolic Xhu056 ALK PHOS 70 U/L 06/08/2018 Comp Metabolic Xfj935 AST(SGOT) 21 U/L 06/08/2018 Comp Metabolic Nnf184 ALT(SGPT) 20 U/L 06/08/2018 Comp Metabolic Anm159 BILI T 1.0 mg/dL 06/08/2018 Comp Metabolic Iek545 ALBUMIN 4.5 g/dL 06/08/2018 Comp Metabolic Rtr423 TPRO 7.2 g/dL 06/08/2018 Comp Metabolic Gbz437 GLOB 2.8 g/dL 06/08/2018 Comp Metabolic Kxp710 A/G Ratio 1.6 Ratio 06/08/2018 Comp Metabolic Usn193 Osmo 277 mOsmo 06/08/2018 Cbc With Differential [...] 30.6 pg 05/10/2018 Cbc With Differential Ord2 Darke% 6.5 % 05/10/2018 Cbc With Differential Ord2 [...] 1.94 K/ul 05/10/2018 Cbc With Differential Ord2 [place] ABS# 0.4 K/ul 05/10/2018 Cbc With Differential [...] Ord30 C/HDL 4.2 Ratio 01/26/2018 Comp Metabolic Quv061 NA 138 mEq/L 01/26/2018 Comp Metabolic Vjy973 K 4.2 mEq/L 01/26/2018 Comp Metabolic Mpj954 CL 105 mEq/L 01/26/2018 Comp Metabolic Vrp781 CO2 23.0 mEq/L 01/26/2018 Comp Metabolic Xrf466 ANION GAP 14 01/26/2018 Comp Metabolic Vid983 GLUCOSE 89 mg/dL 01/26/2018 Comp Metabolic Mqz636 Creat 1.1 mg/dL 01/26/2018 Comp Metabolic Fzw952 eGFR 70 ml/min/1.73m2 01/26/2018 Comp Metabolic Gzp502 BUN 18 mg/dL 01/26/2018 Comp Metabolic Hyg409 B/C Ratio 16.8 Ratio 01/26/2018 Comp Metabolic Jlh135 CALCIUM 9.2 mg/dL 01/26/2018 Comp Metabolic Elc073 ALK PHOS 67 U/L 01/26/2018 Comp Metabolic Yrm567 AST(SGOT) 31 U/L 01/26/2018 Comp Metabolic Wmd217 ALT(SGPT) 23 U/L 01/26/2018 Comp Metabolic Vgq344 BILI T 1.7 mg/dL 01/26/2018 Comp Metabolic Hjp514 ALBUMIN 3.9 g/dL 01/26/2018 Comp Metabolic Pzt152 TPRO 6.7 g/dL 01/26/2018 Comp Metabolic Yej539 GLOB 2.8 g/dL 01/26/2018 Comp Metabolic Xpo482 A/G Ratio 1.4 Ratio 01/26/2018 Comp Metabolic Kwb896 Osmo 277 mOsmo 01/26/2018 Cbc With Differential [...] 30.7 pg 01/26/2018 Cbc With Differential Ord2 Darke% 7.1 % 01/26/2018 Cbc With Differential Ord2 [...] 2.40 K/ul 01/26/2018 Cbc With Differential Ord2 [place] ABS# 0.5 K/ul 01/26/2018 Cbc With Differential Ord2 Eos ABS# 0.2 K/ul 01/26/2018 Cbc With Differential Ord2 Baso ABS# 0.0 K/ul 01/26/2018 Tsh Ord6 TSH (3rd IS) 1.81 uIU/mL 01/26/2018 Testosterone Vnl712 Testo 370.3 ng/dL 01/26/2018 C A/B FLU [id number] Influenza A Scr Negative 12/08/2017 C A/B FLU [id number] Influenza B Scr Negative 12/08/2017 C A/B FLU [id number] Influenza Intrp B AG:PRID:PT:NOSE:NOM:IF See Footnote 12/08/2017 [...] 30.8 pg 04/11/2017 Cbc With Differential Ord2 Dar[place]% 8.1 % 04/11/2017 Cbc With Differential Ord2 [...] 1.91 K/ul 04/11/2017 Cbc With Differential Ord2 [place] ABS# 0.5 K/ul 04/11/2017 Cbc With Differential Ord2 Eos ABS# 0.2 K/ul 04/11/2017 Cbc With Differential Ord2 Baso ABS# 0.0 K/ul 04/11/2017 Comp Metabolic Pya510 NA 140 mEq/L 04/11/2017 Comp Metabolic Qun341 K 4.1 mEq/L 04/11/2017 Comp Metabolic Iis773 CL 105 mEq/L 04/11/2017 Comp Metabolic Odq788 CO2 26.0 mEq/L 04/11/2017 Comp Metabolic Ncy180 ANION GAP 13 04/11/2017 Comp Metabolic Suw363 GLUCOSE 88 mg/dL 04/11/2017 Comp Metabolic Qyx349 Creat 1.1 mg/dL 04/11/2017 Comp Metabolic Lhq570 eGFR 66 ml/min/1.73m2 04/11/2017 Comp Metabolic Oyk998 BUN 18 mg/dL 04/11/2017 Comp Metabolic Yqp046 B/C Ratio 15.9 Ratio 04/11/2017 Comp Metabolic Ayy253 CALCIUM 9.0 mg/dL 04/11/2017 Comp Metabolic Ctg328 ALK PHOS 72 U/L 04/11/2017 Comp Metabolic Pix564 AST(SGOT) 22 U/L 04/11/2017 Comp Metabolic Wkc962 ALT(SGPT) 26 U/L 04/11/2017 Comp Metabolic Yhf795 BILI T 1.0 mg/dL 04/11/2017 Comp Metabolic Fjp095 ALBUMIN 4.0 g/dL 04/11/2017 Comp Metabolic Tmi520 TPRO 6.4 g/dL 04/11/2017 Comp Metabolic Mmc934 GLOB 2.4 g/dL 04/11/2017 Comp Metabolic Xen511 A/G Ratio 1.6 Ratio 04/11/2017 Comp Metabolic Qxq761 Osmo 281 mOsmo 04/11/2017 Vitamin D 25 Oh Qga9991 VITAMIN D, 25 HYDROXY 65.52 ng/mL 05/19/2016 [...] 28.5 pg 05/18/2016 Cbc With Differential Ord2 [place]% 7.2 % 05/18/2016 Cbc With Differential Ord2 [...] 1.80 K/ul 05/18/2016 Cbc With Differential Ord2 [place] ABS# 0.4 K/ul 05/18/2016 Cbc With Differential Ord2 Eos ABS# 0.2 K/ul 05/18/2016 Cbc With Differential Ord2 Baso ABS# 0.0 K/ul 05/18/2016 Magnesium Ord90 Mag 2.0 mg/dL 05/18/2016 Renal Vzt089 NA 139 mEq/L 05/18/2016 Renal Sim797 K 4.0 mEq/L 05/18/2016 Renal Ysx850 CL 104 mEq/L 05/18/2016 Renal Ciz687 CO2 27.0 mEq/L 05/18/2016 Renal Wot151 ANION GAP 12 05/18/2016 Renal Xcd833 Osmo 279 mOsmo 05/18/2016 Renal Yaw580 GLUCOSE 91 mg/dL 05/18/2016 Renal Aem914 BUN 18 mg/dL 05/18/2016 Renal Pie283 Creat 1.3 mg/dL 05/18/2016 Renal Gpm889 eGFR 59 ml/min/1.73m2 05/18/2016 Renal Qlh014 B/C Ratio 14.3 Ratio 05/18/2016 Renal Qds028 CALCIUM 9.3 mg/dL 05/18/2016 Renal Glt683 PHOS 3.2 mg/dL 05/18/2016 Renal Oba164 ALBUMIN 4.2 g/dL 05/18/2016 Random Urine Protein/Creatinine Ratio Mue0443 U Prot 15.0 mg/dl 05/18/2016 Random Urine Protein/Creatinine Ratio Ssi8708 U CREAT 141.0 mg/dL 05/18/2016 Random Urine Protein/Creatinine Ratio Aea1923 R MTP/Creat Ratio 0.11 05/18/2016 Urinalysis Ord28 [...] 28.5 pg 02/19/2016 Cbc With Differential Ord2 [place]% 9.5 % 02/19/2016 Cbc With Differential Ord2 [...] 1.91 K/ul 02/19/2016 Cbc With Differential Ord2 [place] ABS# 0.5 K/ul 02/19/2016 Cbc With Differential Ord2 Eos ABS# 0.2 K/ul 02/19/2016 Cbc With Differential Ord2 Baso ABS# 0.0 K/ul 02/19/2016 Cbc With Differential Ord2 New Analyzer Notice Please note new ref ranges starting 10-29-2015 due to implemntation of new five part differential hematolgy analyzer. 02/19/2016 Tsh Ord6 hTSH II 2.10 uIU/mL 02/19/2016 Comp Metabolic Jyf078 NA 138 mEq/L 02/19/2016 Comp Metabolic Zmw058 K 3.8 mEq/L 02/19/2016 Comp Metabolic Ebz364 CL 103 mEq/L 02/19/2016 Comp Metabolic Ceo974 CO2 28.0 mEq/L 02/19/2016 Comp Metabolic Fms942 ANION GAP 11 02/19/2016 Comp Metabolic Dqy353 GLUCOSE 94 mg/dL 02/19/2016 Comp Metabolic Xlh198 Creat 1.0 mg/dL 02/19/2016 Comp Metabolic Aqy916 eGFR 75 ml/min/1.73m2 02/19/2016 Comp Metabolic Cxo730 BUN 18 mg/dL 02/19/2016 Comp Metabolic Edj887 B/C Ratio 17.6 Ratio 02/19/2016 Comp Metabolic Mor816 CALCIUM 9.6 mg/dL 02/19/2016 Comp Metabolic Ffq472 ALK PHOS 93 U/L 02/19/2016 Comp Metabolic Hjf460 AST(SGOT) 23 U/L 02/19/2016 Comp Metabolic Enj770 ALT(SGPT) 19 U/L 02/19/2016 Comp Metabolic Sti484 BILI T 0.8 mg/dL 02/19/2016 Comp Metabolic Pnj353 ALBUMIN 4.1 g/dL 02/19/2016 Comp Metabolic Dxz522 TPRO 6.8 g/dL 02/19/2016 Comp Metabolic Ngt760 GLOB 2.7 g/dL 02/19/2016 Comp Metabolic Vyf655 A/G Ratio 1.5 Ratio 02/19/2016 Comp Metabolic Tbb971 Osmo 277 mOsmo 02/19/2016 Uric Acid Ord77 Uric A 6.0 mg/dL 02/19/2016 Total Psa Ord10 PSA 0.82 ng/mL 02/19/2016 Comp Metabolic Smg846 NA 140 mEq/L 12/16/2015 Comp Metabolic Sxa705 K 4.0 mEq/L 12/16/2015 Comp Metabolic Imz160 CL 105 mEq/L 12/16/2015 Comp Metabolic Vqp280 CO2 24.0 mEq/L 12/16/2015 Comp Metabolic Rua632 ANION GAP 15 12/16/2015 Comp Metabolic Fam044 GLUCOSE 85 mg/dL 12/16/2015 Comp Metabolic Dgh482 Creat 1.2 mg/dL 12/16/2015 Comp Metabolic Kjl591 eGFR 65 ml/min/1.73m2 12/16/2015 Comp Metabolic Qzz512 BUN 14 mg/dL 12/16/2015 Comp Metabolic Kgc088 B/C Ratio 12.1 Ratio 12/16/2015 Comp Metabolic Dcs915 CALCIUM 9.1 mg/dL 12/16/2015 Comp Metabolic Jgx180 ALK PHOS 162 U/L 12/16/2015 Comp Metabolic Qxy994 AST(SGOT) 14 U/L 12/16/2015 Comp Metabolic Rfh478 ALT(SGPT) 17 U/L 12/16/2015 Comp Metabolic Oqo586 BILI T 1.0 mg/dL 12/16/2015 Comp Metabolic Uxf305 ALBUMIN 3.4 g/dL 12/16/2015 Comp Metabolic Oca734 TPRO 6.2 g/dL 12/16/2015 Comp Metabolic Nrh100 GLOB 2.9 g/dL 12/16/2015 Comp Metabolic Zpv482 A/G Ratio 1.2 Ratio 12/16/2015 Comp Metabolic Twu221 Osmo 279 mOsmo 12/16/2015 Uric Acid Ord77 [...] 29.9 % 12/16/2015 Cbc With Differential Ord2 Darke% 7.5 % 12/16/2015 Cbc With Differential Ord2 [...] 1.52 K/ul 12/16/2015 Cbc With Differential Ord2 Darke ABS# 0.4 K/ul 12/16/2015 Cbc With Differential [...] C/HDL 4.0 Ratio 07/21/2015 Urine Protein 24Hr Dve537 U Prot 5.1 mg/dl 05/16/2015 Urine Protein 24Hr Iif038 U Prot24 71.5 mg/24hr 05/16/2015 Total Volume Urine Wwj427 TV/24hr 1400 ml 05/16/2015 Total Psa Ord10 PSA 0.70 ng/mL 05/15/2015 Renal Egk443 NA 135 mEq/L 05/15/2015 Renal Skh490 K 3.9 mEq/L 05/15/2015 Renal Khk933 CL 101 mEq/L 05/15/2015 Renal You567 CO2 27.0 mEq/L 05/15/2015 Renal Rad381 ANION GAP 11 05/15/2015 Renal Iqq906 Osmo 274 mOsmo 05/15/2015 Renal Uhp969 GLUCOSE 132 mg/dL 05/15/2015 Renal Vec270 BUN 19 mg/dL 05/15/2015 Renal Iqx881 Creat 1.1 mg/dL 05/15/2015 Renal Flf646 eGFR 67 ml/min/1.73m2 05/15/2015 Renal Kei412 B/C Ratio 17.0 Ratio 05/15/2015 Renal Pco189 CALCIUM 9.6 mg/dL 05/15/2015 Renal Rnu092 PHOS 3.0 mg/dL 05/15/2015 Renal Rhg079 ALBUMIN 4.3 g/dL 05/15/2015 Cbc With Differential [...] Formatting Model/CDA Sections, Assigned to/Sharee Ramirez CPT-4: 57876Ohhxevh 07/05/2018 THER/PROPH/DIAG INJ SC/IM CPT-4: 70625 06/12/2018 TRIAMCINOLONE ACET INJ NOS CPT-4: J3301 06/12/2018 PPPS, SUBSEQ VISIT CPT- 4: G0439 08/03/2017 ADMIN INFLUENZA VIRUS VAC CPT-4: G0008 06/28/2016 FLU VACC PRSV FREE INC ANTIG CPT-4: 54692 06/28/2016 TENIVAC TD VACCINE NO PRSRV 7/> IM CPT-4: 90733 06/28/2016 OCCULT BLOOD FECES CPT- 4: 99662 02/19/2015 Vital Signs Date Vital 05/21/2019 Blood Pressure 1: 120/78 Code: 8480-6 Heart Rate 1: 80 bpm Height: SpO2: 98% Weight: 04/23/2019 Blood Pressure 1: 140/70 Code: 8480-6 BMI: 28.5 Code: 05820-6 Heart Rate 1: 58 bpm Height: 6' SpO2: 92% Weight: 210 lbs 03/05/2019 Blood Pressure 1: 128/76 Code: 8480-6 BMI: 28.5 Code: 87221-0 Heart Rate 1: 85 bpm Height: 6' SpO2: 96% Weight: 210 lbs 02/12/2019 Blood Pressure 1: 110/70 Code: 8480-6 BMI: 28.5 Code: 87624-0 Heart Rate 1: 70 bpm Height: 6' SpO2: 93% Weight: 210 lbs 01/29/2019 Blood Pressure 1: 110/78 Code: 8480-6 BMI: 28.5 Code: 05526-9 Heart Rate 1: 98 bpm Height: 6' SpO2: 90% Weight: 210 lbs 2019 Blood Pressure 1: 136/74 Code: 8480-6 BMI: 28.6 Code: 19602-9 Heart Rate 1: 97 bpm Height: 6' SpO2: 94% Weight: 211 lbs 01/08/2019 Blood Pressure 1: 128/86 Code: 8480-6 BMI: 28.6 Code: 64468-4 Heart Rate 1: 96 bpm Height: 6' SpO2: 97% Weight: 211 lbs 12/25/2018 Blood Pressure 1: 112/62 Code: 8480-6 BMI: 28.6 Code: 26962-5 Heart Rate 1: 76 bpm Height: 6' SpO2: 96% Weight: 211 lbs 12/13/2018 Blood Pressure 1: 114/78 Code: 8480-6 BMI: 29.4 Code: 43340-1 Heart Rate 1: 73 bpm Height: 6' SpO2: 93% Weight: 217 lbs 11/27/2018 Blood Pressure 1: 110/70 Code: 8480-6 BMI: 28.5 Code: 36966-3 Heart Rate 1: 90 bpm Height: 6' SpO2: 95% Temperature: 36.8 (C) / 98.2 (F) Weight: 210 lbs 8 oz 09/26/2018 Blood Pressure 1: 130/80 Code: 8480-6 BMI: 29.6 Code: 61574-0 Heart Rate 1: 98 bpm Height: 6' SpO2: 93% Weight: 218 lbs 08/10/2018 BMI: 29.4 Code: 52310-2 Height: 6' Weight: 217 lbs 07/26/2018 Blood Pressure 1: 116/72 Code: 8480-6 BMI: 29.4 Code: 31853-0 Heart Rate 1: 102 bpm Height: 6' SpO2: 96% Weight: 217 lbs 07/05/2018 Blood Pressure 1: 132/72 Code: 8480-6 Heart Rate 1: 60 bpm SpO2: 95% 06/12/2018 Blood Pressure 1: 120/78 Code: 8480-6 BMI: 29.6 Code: 94196-5 Heart Rate 1: 103 bpm Height: 6' SpO2: 96% Weight: 218 lbs 05/10/2018 Blood Pressure 1: 114/68 Code: 8480-6 BMI: 29.4 Code: 89492-8 Heart Rate 1: 92 bpm Height: 6' SpO2: 97% Weight: 217 lbs 03/27/2018 Blood Pressure 1: 126/74 Code: 8480-6 BMI: 30.1 Code: 77536-1 Heart Rate 1: 103 bpm Height: 6' SpO2: 96% Weight: 222 lbs 01/25/2018 Blood Pressure 1: 122/70 Code: 8480-6 Blood Pressure 2: 12673 Code: 8480-6 Heart Rate 1: 63 bpm SpO2: 94% 01/24/2018 Blood Pressure 1: 11072 Code: 8480-6 BMI: 29.7 Code: 34220-9 Heart Rate 1: 88 bpm Height: 6' SpO2: 95% Weight: 219 lbs 12/08/2017 Blood Pressure 1: 12068 Code: 8480-6 BMI: 30.0 Code: 01216-8 Heart Rate 1: 91 bpm Height: 6' SpO2: 96% Temperature: 36.7 (C) / 98.1 (F) Weight: 221 lbs 10/27/2017 Blood Pressure 1: 124/76 Code: 8480-6 BMI: 30.1 Code: 45490-4 Heart Rate 1: 69 bpm Height: 6' SpO2: 95% Weight: 222 lbs 09/29/2017 Blood Pressure 1: 11866 Code: 8480-6 BMI: 29.9 Code: 60412-6 Heart Rate 1: 81 bpm Height: 6' SpO2: 95% Weight: 220 lbs 8 oz 09/01/2017 Blood Pressure 1: 122/82 Code: 8480-6 BMI: 29.6 Code: 95434-0 Heart Rate 1: 75 bpm Height: 6' SpO2: 97% Weight: 218 lbs 08/03/2017 Blood Pressure 1: 120/68 Code: 8480-6 Heart Rate 1: 68 bpm Height: 6' SpO2: 94% Waist Measure (cm): 97 cm 04/26/2017 Blood Pressure 1: 122/72 Code: 8480-6 BMI: 29.4 Code: 35164-9 Heart Rate 1: 85 bpm Height: 6' SpO2: 92% Weight: 217 lbs 01/25/2017 Blood Pressure 1: 118/78 Code: 8480-6 BMI: 29.4 Code: 16716-7 Heart Rate 1: 72 bpm Height: 6' SpO2: 94% Temperature: 36.9 (C) / 98.5 (F) Weight: 217 lbs 10/26/2016 Blood Pressure 1: 152/86 Code: 8480-6 BMI: 29.7 Code: 56156-8 Heart Rate 1: 58 bpm Height: 6' Weight: 219 lbs 09/27/2016 Blood Pressure 1: 138/80 Code: 8480-6 BMI: 29.4 Code: 55978-7 Heart Rate 1: 52 bpm Height: 6' SpO2: 98% Weight: 217 lbs 06/28/2016 Blood Pressure 1: 128/86 Code: 8480-6 BMI: 29.6 Code: 34379-5 Heart Rate 1: 69 bpm Height: 6' SpO2: 93% Weight: 218 lbs 04/27/2016 Blood Pressure 1: 118/82 Code: 8480-6 BMI: 29.3 Code: 47384-6 Heart Rate 1: 85 bpm Height: 6' SpO2: 98% Weight: 216 lbs 02/17/2016 Blood Pressure 1: 132/80 Code: 8480-6 BMI: 28.8 Code: 26617-9 Heart Rate 1: 94 bpm Height: 6' SpO2: 98% Weight: 212 lbs 01/20/2016 Blood Pressure 1: 120/70 Code: 8480-6 BMI: 29.7 Code: 79723-1 Heart Rate 1: 87 bpm Height: 6' SpO2: 92% Weight: 219 lbs 01/06/2016 Blood Pressure 1: 122/88 Code: 8480-6 BMI: 28.8 Code: 28062-5 Heart Rate 1: 83 bpm Height: 6' SpO2: 97% Weight: 212 lbs 12/16/2015 Blood Pressure 1: 98/62 Code: 8480-6 Heart Rate 1: 62 bpm Height: 6' SpO2: 90% Weight: 11/27/2015 Blood Pressure 1: 90/64 Code: 8480-6 Blood Pressure 1: 110/80 Code: 8480-6 Heart Rate 1: 91 bpm Height: 6' SpO2: 92% Weight: 07/30/2015 Blood Pressure 1: 112/82 Code: 8480-6 BMI: 30.5 Code: 36824-4 Heart Rate 1: 82 bpm Height: 6' SpO2: 92% Weight: 225 lbs 06/09/2015 Blood Pressure 1: 130/76 Code: 8480-6 BMI: 31.1 Code: 44278-3 Heart Rate 1: 65 bpm Height: 6' SpO2: 96% Weight: 229 lbs 04/29/2015 Blood Pressure 1: 118/78 Code: 8480-6 BMI: 30.7 Code: 32889-3 Heart Rate 1: 70 bpm Height: 6' Weight: 226 lbs 02/19/2015 Blood Pressure 1: 118/70 Code: 8480-6 BMI: 29.7 Code: 31080-3 Heart Rate 1: 68 bpm Height: 6' [...] III Diagnosis: Epistaxis[ICD10: R04.0] Mady Butcher MD, [facility] CPT-4: 34836 05/21/2019 ([id number]) 72111 EST. PATIENT, LEVEL IV Diagnosis: Essential (primary) hypertension[ICD10: I10] Diagnosis: Major depressive disorder, recurrent, mild[ICD10: F33.0] Diagnosis: Muscle weakness (generalized)[ICD10: M62.81] Diagnosis: Mixed hyperlipidemia[ICD10: E78.2] Lesley Butcher MD, [facility] CPT- 4: 93253 04/23/2019 ([id number]) 23448 EST. PATIENT, LEVEL IV Diagnosis: Essential (primary) hypertension[ICD10: I10] Diagnosis: Unsteadiness on feet[ICD10: R26.81] Diagnosis: Abdominal aortic aneurysm, without rupture[ICD10: I71.4] Lesley Butcher MD, [facility] CPT-4: 80582 03/05/2019 ([id number]) 82037 EST. PATIENT, LEVEL IV Diagnosis: Paroxysmal atrial fibrillation[ICD10: I48.0] Diagnosis: Essential (primary) hypertension[ICD10: I10] Diagnosis: Frequency of micturition[ICD10: R35.0] Merline Butcher MD, [facility] CPT-4: 80500 02/12/2019 ([id number]) 85308 EST. PATIENT, LEVEL V Diagnosis: Essential (primary) hypertension[ICD10: I10] Diagnosis: Dizziness and giddiness[ICD10: R42] Diagnosis: Vertigo of central origin, right ear[ICD10: H81.41] Lesley Butcher MD, [facility] CPT-4: 17333 01/29/2019 43841 EST. PATIENT, LEVEL III Diagnosis: Pleurodynia[ICD10: R07.81] Mady Butcher MD, [facility] CPT-4: 72266 2019 ([id number]) 99081 EST. PATIENT, LEVEL III Diagnosis: Other allergic rhinitis[ICD10: J30.89] Merline Butcher MD, [facility] CPT-4: 24409 01/08/2019 03497 EST. PATIENT, LEVEL IV Diagnosis: Other fatigue[ICD10: R53.83] Diagnosis: Obstructive sleep apnea (adult) (pediatric)[ICD10: G47.33] Diagnosis: Other malaise[ICD10: R53.81] Mady Butcher MD, [facility] CPT-4: 43507 12/25/2018 ([id number]) 57494 EST. PATIENT, LEVEL IV Diagnosis: Shortness of breath[ICD10: R06.02] Diagnosis: Other fatigue[ICD10: R53.83] Diagnosis: Obstructive sleep apnea (adult) (pediatric)[ICD10: G47.33] Diagnosis: Other malaise[ICD10: R53.81] Lesley Butcher MD, [facility] CPT-4: 82758 12/13/2018 ([id number]) 63891 EST. PATIENT, LEVEL IV Diagnosis: Shortness of breath[ICD10: R06.02] Diagnosis: Dizziness and giddiness[ICD10: R42] Diagnosis: Other fatigue[ICD10: R53.83] Diagnosis: Essential (primary) hypertension[ICD10: I10] Diagnosis: Muscle weakness (generalized)[ICD10: M62.81] Merline Butcher MD, [facility] CPT-4: 46850 11/27/2018 ([id number]) 91665 EST. PATIENT, LEVEL IV Diagnosis: Essential (primary) hypertension[ICD10: I10] Diagnosis: Vertigo of central origin, right ear[ICD10: H81.41] Diagnosis: Low back pain[ICD10: M54.5] Lesley Butcher MD, [facility] CPT-4: 76591 09/26/2018 ([id number]) 37182 EST. PATIENT, LEVEL III Diagnosis: Dizziness and giddiness[ICD10: R42] Diagnosis: Vertigo of central origin, right ear[ICD10: H81.41] Diagnosis: Essential (primary) hypertension[ICD10: I10] Lesley Butcher MD, [facility] CPT-4: 45047 07/26/2018 ([id number]) 24341 EST. PATIENT, LEVEL III Diagnosis: Essential (primary) hypertension[ICD10: I10] Lesley Butcher MD, [facility] CPT-4: 97275 06/12/2018 ([id number]) 77555 EST. PATIENT, LEVEL IV Diagnosis: Other iron deficiency anemias[ICD10: D50.8] Diagnosis: Weakness[ICD10: R53.1] Diagnosis: Diverticulosis of large intestine without perforation or abscess with bleeding[ICD10: K57.31] Lesley Butcher MD, [facility] CPT-4: 04992 05/10/2018 ([id number]) 34571 EST. PATIENT, LEVEL IV Diagnosis: Essential (primary) hypertension[ICD10: I10] Diagnosis: Major depressive disorder, recurrent, mild[ICD10: F33.0] Diagnosis: Sensorineural hearing loss, bilateral[ICD10: H90.3] Lesley Butcher MD, [facility] CPT-4: 27246 03/27/2018 ([id number]) Miscellaneous no charge Diagnosis: Essential (primary) hypertension[ICD10: I10] Mady Butcher MD, [facility] CPT-4: 66372 01/25/2018 ([id number]) 75663 EST. PATIENT, LEVEL IV Diagnosis: Essential (primary) hypertension[ICD10: I10] Diagnosis: Sensorineural hearing loss, bilateral[ICD10: H90.3] Diagnosis: Mixed hyperlipidemia[ICD10: E78.2] Diagnosis: Major depressive disorder, recurrent, mild[ICD10: F33.0] Lesley Butcher MD, [facility] CPT-4: 71059 01/24/2018 02394 EST. PATIENT, LEVEL IV Diagnosis: Other malaise[ICD10: R53.81] Diagnosis: Fever, unspecified[ICD10: R50.9] Mady Butcher MD, [facility] CPT-4: 12915 12/08/2017 ([id number]) 44261 EST. PATIENT, LEVEL III Diagnosis: Essential (primary) hypertension[ICD10: I10] Lesley Butcher MD, [facility] CPT-4: 45773 10/27/2017 ([id number]) 71140 EST. PATIENT, LEVEL III Diagnosis: Benign prostatic hyperplasia with lower urinary tract symptoms[ICD10: N40.1] Diagnosis: Dysphagia, pharyngeal phase[ICD10: R13.13] Lesley Butcher MD, [facility] CPT-4: 64981 09/29/2017 ([id number]) 37251 EST. PATIENT, LEVEL IV Diagnosis: Essential (primary) hypertension[ICD10: I10] Diagnosis: Major depressive disorder, recurrent, mild[ICD10: F33.0] Diagnosis: Sensorineural hearing loss, bilateral[ICD10: H90.3] Lesley Butcher MD [facility] CPT-4: 69204 09/01/2017 ([id number]) 07979 EST. PATIENT, LEVEL IV Diagnosis: Essential (primary) hypertension[ICD10: I10] Diagnosis: Major depressive disorder, recurrent, mild[ICD10: F33.0] Diagnosis: Mixed hyperlipidemia[ICD10: E78.2] Lesley Butcher MD, [facility] CPT- 4: 71426 04/26/2017 ([id number]) 77788 EST. 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 PATIENT, LEVEL IV Diagnosis: Essential (primary) hypertension[ICD10: I10] Diagnosis: Major depressive disorder, recurrent, mild[ICD10: F33.0] Diagnosis: Urge incontinence[ICD10: N39.41] Lesley Butcher MD, [facility] CPT-4: 50267 10/26/2016 ([id number]) 69996 EST. PATIENT, LEVEL III Diagnosis: Essential (primary) hypertension[ICD10: I10] Diagnosis: Major depressive disorder, recurrent, mild[ICD10: F33.0] Diagnosis: Urge incontinence[ICD10: N39.41] Lesley Butcher MD, [facility] CPT-4: 75263 09/27/2016 ([id number]) 99172 EST. PATIENT, LEVEL IV Diagnosis: Essential (primary) hypertension[ICD10: I10] Diagnosis: Encounter for immunization[ICD10: Z23] Diagnosis: Laceration without foreign body of left forearm, initial encounter[ICD10: S51.812A] Diagnosis: Laceration without foreign body of right forearm, initial encounter[ICD10: S51.811A] Diagnosis: Major depressive disorder, recurrent, mild[ICD10: F33.0] Lesley Butcher MD, [facility] CPT-4: 43476 06/28/2016 ([id number]) 81829 EST. 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 PATIENT, LEVEL V Diagnosis: Essential (primary) hypertension[ICD10: I10] Diagnosis: Major depressive disorder, recurrent, mild[ICD10: F33.0] Diagnosis: Idiopathic gout, left ankle and foot[ICD10: M10.072] Diagnosis: Mixed hyperlipidemia[ICD10: E78.2] Lesley Butcher MD, [facility] CPT- 4: 55424 02/17/2016 ([id number]) 36276 EST. 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 PATIENT, LEVEL IV Diagnosis: Weakness[ICD10: R53.1] Diagnosis: Gout, unspecified[ICD10: M10.9] Diagnosis: Hypotension, unspecified[ICD10: I95.9] Lesley Butcher MD, [facility] CPT-4: 78158 12/16/2015 ([id number]) Patient admitted to the hospital from clinic (NO CHARGE) Diagnosis: Hypoxemia[ICD10: R09.02] Diagnosis: Weakness[ICD10: R53.1] Diagnosis: Dyspnea, unspecified[ICD10: R06.00] Mady Butcher MD, [facility] CPT- 4: 00349K 11/27/2015 ([id number]) 10701 EST. PATIENT, LEVEL III Diagnosis: Essential (primary) hypertension[ICD10: I10] Diagnosis: Gastro-esophageal reflux disease without esophagitis[ICD10: K21.9] Lesley Butcher MD, [facility] CPT-4: 94179 07/30/2015 ([id number]) 57040 EST. PATIENT, LEVEL III Diagnosis: ESSENTIAL HYPERTENSION[ICD9: 401.9] Merline Butcher MD, [facility] CPT-4: 83832 06/09/2015 ([id number]) 56991 EST. PATIENT, LEVEL III Diagnosis: ESSENTIAL HYPERTENSION[ICD9: 401.9] Lesley Butcher MD, [facility] CPT- 4: 50760 04/29/2015 ([id number]) OFFICE/OUTPATIENT VISIT NEW Diagnosis: ESSENTIAL HYPERTENSION[ICD9: 401.9] Diagnosis: DEPRESSIVE DISORDER NEC[ICD9: 311] Diagnosis: Enlarged prostate[ICD9: 600.00] Diagnosis: Nasal inflammation due to allergen[ICD9: 477.9] Lesley Butcher MD, [facility] CPT-4: 21503 02/19/2015 Plan of Care Planned Activity Notes [...] Summary Completed 05/21/2019 Appointment: Lesley Butcher WPtel: [address] [place], [place] [id number] (15 min) Moderate 05/07/2019 Visit Plan: Hypertension [...] aneurysm - defer to Dr. Valentine at [facility]. 04/23/2019 Appointment: Lesley Butcher WPtel: [phone] [facility] (15 min) Moderate 04/23/2019 Appointment: Merline Rose WPtel: [phone] [phone] [place] (30 min) Complex 04/23/2019 Patient [...] discussion. 03/05/2019 [facility]ment[phone] [facility] ([facility] min) Moderate 03/05/2019 Patient Education: Patient Medication Summary Completed 03/05/2019 Visit Plan: Afib-new diagnosis with cardiology -Dr Deleon -now on coumadin-will return to [place] in 2 weeks to discuss watchman device DII-sxffnwcgcv-zs changes Urinary frequency and urgency -check UA -patient unable to void at appt -will bring back sample 02/12/2019 [facility]ment[phone] (30 min) Complex 02/12/2019 Patient Education: [...] when he had previous blockages - 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 They have a potential appt pending. 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 They have a potential appt pending. I spent 45 minutes with the patient and his family in direct contact and discussion. 01/29/2019 Appointment: [facility]el[facility] [phone] [facility] (30 min) Complex 01/29/2019 Patient Education: Patient Medication Summary Completed 01/29/2019 Visit Plan: Left rib pain - x-ray pending - The pt is to use prn antiinflammatories to manage acute pain. The patient is to call the office if the pain is worsening or does not improve. 2019 Appointment: Mady Dunne WPtel: [facility] [facility] (30 min) Complex 2019 Patient Education: [...] allergy spray. 01/08/2019 Appointment: Merline Rose [facility]Ptel[phone] [place] (30 min) Complex 01/08/2019 Patient Education: Patient Medication Summary Completed 01/08/2019 Visit Plan: Fatigue, shortness of breath, dizziness - pt is to continue PT, pt is to follow up with Dr. Panda and Dr. Harvey and is to notify clinic with any changes in the current treatment plan. 12/25/2018 Appointment: Mady Dunne WPtel: [facility] 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 Generalized weakness-discussed PT referral after cleared by cardiology -patient's will call us when she wants to have it set up HTN-no change but monitor at home 11/27/2018 Appointment: Merline Rose WPtel: [phone] [place] (15 min) Moderate 11/27/2018 Patient [...] cryotherapy sessions. 09/26/2018 Appointment: Lesley Butcher WPtel: [facility] [place] (15 min) Moderate 09/26/2018 Patient Education: [...] surrogate. 08/10/2018 Appointment: Mady Dunne WPtel: [phone] [facility] [facility] - Annual Wellness Visit 08/10/2018 Patient [...] at home. 07/26/2018 Appointment: Lesley Butcher WPtel: [facility] (15 min) Moderate 07/26/2018 Patient Education: Patient [...] dexamethasone. 06/12/2018 Appointment: Lesley Butcher WPtel: [phone] [facility] (15 min) Moderate 06/12/2018 Patient Education: Patient Medication Summary Completed 06/12/2018 Visit Plan: Diverticulosis with recent GI bleeding - improved - continue with supportive care, avoid foods which cause any abdominal pain - monitor symptoms - call if any pain or bleeding recurs. Anemia - check labs today. Weakness - continue with increasing of activity. 05/10/2018 Appointment: [facility]el[phone] [facility] [place] (30 min) Complex 05/10/2018 Patient [...] implant. 03/27/2018 Appointment: [facility]Ptel[facility] [phone] [facility] (15 min) Moderate 03/27/2018 Patient Education: [...] medications. 01/24/2018 Appointment: [facility]Ptel[facility] [phone] [facility] [place] (15 min) Moderate 01/24/2018 Patient Education: Patient Medication Summary Completed 01/24/2018 Visit Plan: Influenza - pt started on tamiflu - pt to start on anti-inflammatories, tylenol and monitor symptoms. Pt to call if not improving. Pt to alert any close contacts as to illness. 12/08/2017 Appointment: [phone] [facility] (30 min) Complex 12/08/2017 Patient Education: [...] home. 10/27/2017 Appointment: Lesley Butcher [facility]Ptel[facility] [phone] [facility] (15 min) Moderate 10/27/2017 Patient Education: Patient Medication Summary Completed 10/27/2017 Referral: External, Ordering Provider Referral Initiated 10/12/2017 Visit Plan: BPH - continue with dutasteride and flomax Dysphagia - referral to Dr. Kumar for EGD - question stricture - dysphagia intermittently - hx of stricture. 09/29/2017 Appointment: Les[facility] But[facility]Ptel[facility] [phone] [facility] (15 min) Moderate 09/29/2017 Patient Education: Patient Medication Summary Completed 09/29/2017 Care Plan: Referral Order SNOMED-CT : [id number] Pending 09/29/2017 Visit Plan: Hypertension - well [...] recommended patient to have an evaluation at [facility] to see if he has potential for cochlear implant. 09/01/2017 Appointment: Les[facility] But[facility]Ptel[facility] [phone] [facility] (15 min) Moderate 09/01/2017 Patient Education: Patient Medication Summary Completed 09/01/2017 Care Plan: Referral Order SNOMED-CT : [id number] Pending 09/01/2017 Visit Plan: Medicare Exam - [...] surrogate. 08/03/2017 Appointment: [phone] [facility] [facility] - Welcome to Medicare visit [...] current medications. 04/26/2017 Appointment: Lesley Butcher WPtel: [facility] (15 min) Moderate 04/26/2017 Patient Education: Patient [...] 10mg daily. 01/25/2017 Appointment: Lesley Butcher WPtel: [facility] (30 min) Complex 01/25/2017 Patient Education: Patient [...] detrol [place] 10/26/2016 Appointment: Lesley Butcher WPtel: [facility] (15 min) Moderate 10/26/2016 Patient Education: Patient [...] occur. 09/27/2016 Appointment: Lesley Butcher WPtel: [phone] [id number] (15 min) Moderate 09/27/2016 Patient Education: Patient [...] andrea 06/28/2016 Appointment: Lesley Butcher WPtel: [phone] [id number] (15 min) Moderate 06/28/2016 Patient Education: Patient [...] 1 month 02/17/2016 Appointment: Merline Rose WPtel: [address] [place], [place] [id number] (30 min) Complex 02/17/2016 Patient Education: Patient [...] Summary Completed 12/16/2015 Appointment: Lesley Butcher WPtel[id number] ([facility] min) Moderate 12/04/2015 Appointment: Lesley Butcher WPtel[id number] ([facility] min) Moderate 12/02/2015 Visit Plan: [...] Appointment: Lesley Butcher WPtel: [phone] [facility] (15 min) Moderate 07/30/2015 Patient Education: Patient [...] at home. 04/29/2015 Appointment: Lesley Butcher WPtel: [phone] [phone] (15 min) Moderate 04/29/2015 Patient Education: Patient [...] External, Ordering Provider Referral Appointment Requested Referral: [facility] 09/12 Referral info faxed Appointment Requested Referral: [facility] Referral Appointment Requested Instructions Comment [...] planned injection in back and call the internal medicine veterinary technician about a biopsy of the lesion [...] -Dr Deleon -now on coumadin-will return to [place] in 2 weeks to discuss watchman device HXD-potyunpdyx-in changes Urinary frequency and urgency -check UA -patient unable to void at [facility] -will bring back sample . Hypertension [...] aneurysm - defer to Dr. Valentine at [facility]. Take 1/2 tab of Citalopram daily for [...] ILLNESS. CHECK CARDIAC ENYZMES AND EKG . 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 They have a potential appt pending. 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 They have a potential appt pending. I spent 45 minutes with the patient and his family in direct contact and discussion.
--- OUTSIDE RECORDS SUMMARY | 2019-05-25 02:05 | XMS REPORT | CCD ---
Author Author [facility] Organization [facility] Address [address] [place] [address] Phone Care Team Providers Care Head Pumper Name Role Phone PP Unavailable CCM Unavailable Summary Purpose Interface Exchange Insurance Providers Payer name Policy type / Coverage type Covered alliance party ID Effective Begin Date Effective End Date WPS Medicare Part B Medicare Part B [id number] 2018 Unknown [facility] Medicare Part B [id number] Unknown Family history Father Diagnosis Age At Onset Hypertension Unknown Coronary Artery Disease Unknown Sister Diagnosis Age At Onset Heart disease Unknown Mother Diagnosis Age At Onset Coronary Artery Disease Unknown Hypertension Unknown Social History Social History Element Codes Description Effective Dates Marital status Unknown 02/19/2015 Number of children Unknown 2 02/19/2015 Employment Unknown Retired 02/19/[address]: 712403088 Has never smoked or chewed tobacco 02/19/2015 Alcohol history Unknown occasionally drinks alcohol 02/19/2015 Allergies, Adverse Reactions, Alerts Substance Reaction Codes Entered Date Inactivated Date Status bactrim RxNorm: 786191 12/19/2015 No Inactive Date Active ciprofloxacin RxNorm: 13660 02/18/2015 No Inactive Date Active IV DYE, [...] Fill Instructions atorvastatin 80 mg tablet RxNorm: 404250 1 Tablet(s) PO daily 04/23/2019 No Stop Date Active Vitamin D3 1,000 unit capsule RxNorm: 799707 1 Capsule(s) PO daily 04/23/2019 No Stop Date Active nitroglycerin 0.4 mg sublingual tablet RxNorm: 042480 1 Tablet(s) SL x3 in 15 min as needed 03/05/2019 No Stop Date Active losartan 50 mg tablet RxNorm: 691518 1 Tablet(s) PO daily 02/16/2019 02/10/2020 Active Requip 0.25 mg tablet RxNorm: 762649 1 Tablet(s) PO QHS 01/29/2019 01/23/2020 Active Flomax 0.4 mg capsule RxNorm: 151122 TAKE 1 CAPSULE BY MOUTH ONCE DAILY IN THE EVENING 01/25/2019 No Stop Date Active Requip 0.25 mg tablet RxNorm: 503330 1 Tablet(s) PO QHS 2019 01/28/2019 Inactive pantoprazole 40 mg tablet,delayed release RxNorm: 570999 TAKE ONE TABLET BY MOUTH ONCE DAILY AT BEDTIME 11/27/2018 No Stop Date Active atorvastatin 40 mg tablet RxNorm: 355200 1 Tablet(s) PO daily 09/26/2018 10/25/2018 Inactive dexamethasone 0.5 mg tablet RxNorm: 498676 TAKE 1 TABLET BY MOUTH ONCE DAILY 08/29/2018 04/22/2019 Inactive clonazepam 1 mg tablet RxNorm: 242888 1/2 Tablet(s) PO QHS 08/24/2018 04/22/2019 Inactive allopurinol 100 mg tablet RxNorm: 677593 TAKE ONE TABLET BY MOUTH ONCE DAILY 08/03/2018 No Stop Date Active citalopram 40 mg tablet RxNorm: 254296 TAKE ONE TABLET BY MOUTH ONCE DAILY 06/13/2018 No Stop Date Active Kenalog 40 mg/mL suspension for injection RxNorm: 9415269 Milliliter(s) Inj 06/12/2018 06/12/2018 Inactive clonazepam 1 mg tablet RxNorm: 420091 1 Tablet(s) PO QHS 06/12/2018 08/23/2018 Inactive clonazepam 1 mg tablet RxNorm: 308692 1/2 Tablet(s) TAKE ONE TABLET BY MOUTH ONCE DAILY AT BEDTIME AND ONE TABLET THREE TIMES DAILY NEEDED 05/24/2018 06/11/2018 Inactive citalopram 40 mg tablet RxNorm: 506266 1/2 Tablet(s) TAKE ONE TABLET BY MOUTH ONCE DAILY 05/24/2018 09/25/2018 Inactive losartan 50 mg tablet RxNorm: 203193 1/2 Tablet(s) PO daily 05/24/2018 02/15/2019 Inactive spironolactone 25 mg tablet RxNorm: 109405 TAKE ONE TABLET BY MOUTH ONCE DAILY 05/22/2018 No Stop Date Active dexamethasone 0.5 mg tablet RxNorm: 600542 TAKE ONE TABLET BY MOUTH ONCE DAILY 02/21/2018 08/28/2018 Inactive Flomax 0.4 mg capsule RxNorm: 528743 TAKE ONE CAPSULE BY MOUTH ONCE DAILY IN THE EVENING 12/19/2017 01/24/2019 Inactive Tamiflu 75 mg capsule RxNorm: 286250 1 Capsule(s) PO BID 12/08/2017 12/12/2017 Inactive clonazepam 1 mg tablet RxNorm: 213386 Tablet(s) TAKE ONE TABLET BY MOUTH ONCE DAILY AT BEDTIME AND ONE TABLET THREE TIMES DAILY NEEDED 11/28/2017 01/26/2018 Inactive pantoprazole 40 mg tablet,delayed release RxNorm: 384006 TAKE ONE TABLET BY MOUTH ONCE DAILY AT BEDTIME 11/07/2017 11/26/2018 Inactive allopurinol 100 mg tablet RxNorm: 301740 TAKE ONE TABLET BY MOUTH ONCE DAILY 10/03/2017 08/02/2018 Inactive pantoprazole 40 mg tablet,delayed release RxNorm: 555403 1 Tablet(s) PO BID 09/01/2017 05/28/2018 Inactive Vitamin B-6 100 mg tablet RxNorm: 669837 1 Tablet(s) PO daily 09/01/2017 06/11/2018 Inactive dutasteride 0.5 mg capsule RxNorm: 340432 1 Capsule(s) PO QPM 09/01/2017 06/11/2018 Inactive spironolactone 25 mg tablet RxNorm: 247393 TAKE ONE TABLET BY MOUTH ONCE DAILY 08/15/2017 05/21/2018 Inactive citalopram 40 mg tablet RxNorm: 173452 TAKE ONE TABLET BY MOUTH ONCE DAILY 08/08/2017 05/04/2018 Inactive dexamethasone 0.5 mg tablet RxNorm: 976799 TAKE ONE TABLET BY MOUTH ONCE DAILY 08/08/2017 11/05/2017 Inactive clonazepam 1 mg tablet RxNorm: 629326 1 Tablet(s) PO QHS AND 1 TAB PO TID PRN 05/12/2017 05/13/2017 Inactive clonazepam 1 mg tablet RxNorm: 139323 TAKE ONE TABLET BY MOUTH ONCE DAILY AT BEDTIME AND ONE THREE TIMES DAILY NEEDED 05/12/2017 04/22/2019 Inactive oxybutynin chloride ER 10 mg tablet,extended release 24 hr RxNorm: 621519 1 Tablet(s) PO daily 04/29/2017 08/02/2017 Inactive dexamethasone 0.5 mg tablet RxNorm: 686042 TAKE ONE TABLET BY MOUTH ONCE DAILY 02/14/2017 04/14/2017 Inactive Flomax 0.4 mg capsule RxNorm: 792172 TAKE ONE CAPSULE BY MOUTH ONCE DAILY IN THE EVENING 02/14/2017 11/10/2017 Inactive pantoprazole 40 mg tablet,delayed release RxNorm: 347665 TAKE ONE TABLET BY MOUTH ONCE DAILY AT BEDTIME 02/14/2017 08/31/2017 Inactive oxybutynin chloride ER 10 mg tablet,extended release 24 hr RxNorm: 226215 1 Tablet(s) PO daily 01/25/2017 04/24/2017 Inactive dexamethasone 0.5 mg tablet RxNorm: 579054 TAKE ONE TABLET BY MOUTH ONCE DAILY 11/10/2016 12/09/2016 Inactive oxybutynin chloride ER 5 mg tablet,extended release 24 hr RxNorm: 844491 1 Tablet(s) PO daily 10/28/2016 10/27/2016 Inactive oxybutynin chloride ER 5 mg tablet,extended release 24 hr RxNorm: 833483 1 Tablet(s) PO daily 10/28/2016 01/24/2017 Inactive Detrol LA 2 mg capsule,extended release RxNorm: 208640 1 Capsule(s) PO QPM 10/26/2016 10/27/2016 Inactive clonazepam 1 mg tablet RxNorm: 805366 1 Tablet(s) PO QHS AND 1 TAB PO TID PRN 10/20/2016 04/17/2017 Inactive dexamethasone 0.5 mg tablet RxNorm: 529540 TAKE ONE TABLET BY MOUTH ONCE DAILY 10/06/2016 11/04/2016 Inactive allopurinol 100 mg tablet RxNorm: 153098 1 Tablet(s) PO daily 09/30/2016 09/24/2017 Inactive Vesicare 5 mg tablet RxNorm: 991726 1 Tablet(s) PO QPM 09/27/2016 12/12/2016 Inactive spironolactone 25 mg tablet RxNorm: 212139 1 Tablet(s) PO daily 08/06/2016 07/31/2017 Inactive citalopram 40 mg tablet RxNorm: 080526 1 Tablet(s) PO daily 06/28/2016 06/22/2017 Inactive iron ER 159 mg (45 mg iron) tablet,extended release RxNorm: 607641 1 Tablet(s) PO daily 04/27/2016 08/31/2017 Inactive dexamethasone 0.5 mg tablet RxNorm: 053278 1/2 Tablet(s) PO daily 04/27/2016 02/20/2018 Inactive allopurinol 100 mg tablet RxNorm: 788102 1 Tablet(s) PO daily 04/27/2016 09/29/2016 Inactive Plavix 75 mg tablet RxNorm: 104767 1 Tablet(s) PO daily 04/27/2016 02/11/2019 Inactive clonazepam 1 mg tablet RxNorm: 655087 1 Tablet(s) PO QHS and 1 tab po TID prn 04/14/2016 10/07/2016 Inactive allopurinol 100 mg tablet RxNorm: 504152 1 Tablet(s) PO daily 02/17/2016 04/26/2016 Inactive citalopram 20 mg tablet RxNorm: 638102 1 Tablet(s) PO daily 01/20/2016 06/27/2016 Inactive Flomax 0.4 mg capsule RxNorm: 368725 1 Capsule(s) PO QPM 01/20/2016 01/13/2017 Inactive [SAVINGS FOR NON-COVERED DRUGS -- BIN:[id number], PCN: ASPROD1, Group: XXXXX, ID# XXXXXXX, Questions: . THIS IS NOT INSURANCE.] pantoprazole 40 mg tablet,delayed release RxNorm: 032867 1 Tablet(s) PO QHS 01/20/2016 01/13/2017 Inactive Colcrys 0.6 mg tablet RxNorm: 682579 1 Tablet(s) PO daily 01/06/2016 03/05/2016 Inactive take daily x 7 days then daily as needed for gout flair colchicine 0.6 mg tablet RxNorm: 254365 1 Tablet(s) PO BID 12/30/2015 01/01/2016 Inactive doxycycline hyclate 100 mg tablet RxNorm: 695680 1 Tablet(s) PO BID 12/19/2015 12/28/2015 Inactive doxycycline hyclate 100 mg tablet RxNorm: 310047 1 Tablet(s) PO BID 12/19/2015 12/18/2015 Inactive allopurinol 100 mg tablet RxNorm: 659253 1 Tablet(s) PO daily 12/16/2015 02/16/2016 Inactive colchicine 0.6 mg tablet RxNorm: 941348 Tablet(s) PO 1.2 mg PO in the morning and 0.6 mg at night for 2 days. 12/16/2015 12/29/2015 Inactive allopurinol 100 mg tablet RxNorm: 452048 1 Tablet(s) PO daily 12/16/2015 12/15/2015 Inactive Protonix 40 mg tablet,delayed release RxNorm: 970791 1 Tablet(s) PO daily 12/16/2015 01/14/2016 Inactive Bactrim DS 800 mg-160 mg tablet RxNorm: 698666 1 Tablet(s) PO BID 12/16/2015 12/18/2015 Inactive colchicine 0.6 mg tablet RxNorm: 892244 Tablet(s) PO 1.2 mg for the first dose and 0.6 mg an hour after 12/15/2015 12/15/2015 Inactive dexamethasone 0.5 mg tablet RxNorm: 326025 1 Tablet(s) PO 12/12/2015 02/09/2016 Inactive Plavix 75 mg tablet RxNorm: 876218 1 Tablet(s) PO every other day 12/12/2015 04/09/2016 Inactive nitroglycerin 0.4 mg sublingual tablet RxNorm: 440766 1 Tablet(s) SL x3 in 15 min as needed 12/12/2015 04/26/2016 Inactive [place] 5 mg-325 mg tablet RxNorm: 081509 1-2 Tablet(s) PO Q6 as needed 12/11/2015 09/26/2016 Inactive clonazepam 1 mg tablet RxNorm: 150986 1 Tablet(s) PO QHS and 1 tab po TID prn 12/11/2015 04/22/2019 Inactive clonazepam 1 mg tablet RxNorm: 341549 1 Tablet(s) PO QHS and 1 tab po TID prn 12/04/2015 12/10/2015 Inactive Flomax 0.4 mg capsule RxNorm: 693240 1 Capsule(s) PO QPM 09/22/2015 01/19/2016 Inactive [SAVINGS FOR NON-COVERED DRUGS -- BIN:105669, PCN: ASPROD1, Group: XXXXX, ID# XXXXXXX, Questions: . THIS IS NOT INSURANCE.] Flomax 0.4 mg capsule RxNorm: 922757 1 Capsule(s) PO QPM 09/16/2015 09/21/2015 Inactive [SAVINGS FOR NON-COVERED DRUGS -- BIN:206201, PCN: ASPROD1, Group: XXXXX, ID# XXXXXXX, Questions: . THIS IS NOT INSURANCE.] clonazepam 1 mg tablet RxNorm: 793615 1 Tablet(s) PO QHS 08/29/2015 12/03/2015 Inactive coenzyme Q10 10 mg tablet RxNorm: 949639 1 Tablet(s) PO daily 07/30/2015 01/05/2016 Inactive spironolactone 25 mg tablet RxNorm: 516080 1 Tablet(s) PO daily 07/28/2015 07/21/2016 Inactive spironolactone 25 mg tablet RxNorm: 103165 1 Tablet(s) PO daily 07/22/2015 07/27/2015 Inactive clonazepam 1 mg tablet RxNorm: 270062 1 Tablet(s) PO QHS 05/23/2015 08/28/2015 Inactive losartan 25 mg tablet RxNorm: 120745 1 Tablet(s) PO daily 02/19/2015 03/20/2015 Inactive Flonase Allergy Relief 50 mcg/actuation nasal spray,suspension RxNorm: 1 [place] NASAL BID 02/19/2015 04/26/2016 Inactive [SAVINGS FOR NON-COVERED DRUGS -- BIN:[id number], PCN: ASPROD1, Group: XXXXX, ID# XXXXXXX, Questions: . THIS IS NOT INSURANCE.] Flomax 0.4 mg capsule RxNorm: 229814 1 Capsule(s) PO QPM 02/19/2015 09/15/2015 Inactive [SAVINGS FOR NON-COVERED DRUGS -- BIN:505525, PCN: ASPROD1, Group: XXXXX, ID# XXXXXXX, Questions: . THIS IS NOT INSURANCE.] citalopram 20 mg tablet RxNorm: 594825 1 Tablet(s) PO daily 02/19/2015 03/20/2015 Inactive atenolol 25 mg tablet RxNorm: 062116 1 Tablet(s) PO daily 02/19/2015 03/20/2015 Inactive Lipitor 20 mg tablet RxNorm: 829198 1 Tablet(s) PO daily 02/19/2015 03/20/2015 Inactive Flonase Allergy Relief 50 mcg/actuation nasal spray,suspension RxNorm: 2792188 1 [place] NASAL QHS No Start Date Active amiodarone 200 mg tablet RxNorm: 110894 1 Tablet(s) PO TID No Start Date Active Vitamin D3 5,000 unit tablet RxNorm: 477804 1 Tablet(s) PO daily No Start Date Active warfarin 3 mg tablet RxNorm: 492391 1 Tablet(s) PO daily No Start Date Active managed by social sciences lecturer Dr Pancho Valenciagra 180 mg tablet RxNorm: 828816 1 Tablet(s) PO daily No Start Date Active Centrum Complete oral RxNorm: 93918 oral No Start Date Active aspirin 325 mg tablet RxNorm: 138476 1 Tablet(s) PO daily No Start Date Active glucosamine HCl 1,500 mg tablet RxNorm: 131442 1 Tablet(s) with 1200 mg chrondroitin PO daily No Start Date 08/01/2018 Inactive vitamin B complex oral RxNorm: 66811 oral No Start Date 04/22/2019 Inactive Claritin-D 24 Hour oral RxNorm: 588615 oral No Start Date 01/07/2019 Inactive ranitidine 150 mg tablet RxNorm: 907623 1 Tablet(s) PO TID No Start Date 12/11/2015 Inactive Lilly oral RxNorm: 919620 oral No Start Date 04/23/2019 Inactive Lipitor oral RxNorm: 06384 oral No Start Date 04/23/2019 Inactive [place] 5 mg-325 mg tablet RxNorm: 813597 1-2 Tablet(s) PO Q6 as needed No Start Date 12/10/2015 Inactive krill oil oral RxNorm: 70663 oral No Start Date 08/07/2018 Inactive Vitamin B-6 100 mg tablet RxNorm: 894292 1 Tablet(s) PO TID No Start Date 08/31/2017 Inactive spironolactone 25 mg tablet RxNorm: 515224 1 Tablet(s) PO daily No Start Date 07/21/2015 Inactive Vitamin D3 oral RxNorm: 2418 oral No Start Date 02/17/2016 Inactive clonazepam 1 mg tablet RxNorm: 192698 1 Tablet(s) PO daily No Start Date 05/22/2015 Inactive Glucosamine oral RxNorm: 4845 oral No Start Date 04/26/2016 Inactive cetirizine 10 mg tablet RxNorm: 9788020 1 Tablet(s) PO daily No Start Date 01/07/2019 Inactive losartan 50 mg tablet RxNorm: 572755 1 Tablet(s) PO daily No Start Date 05/23/2018 Inactive Plavix 75 mg tablet RxNorm: 465069 1 Tablet(s) PO every other day No Start Date 12/11/2015 Inactive Osteo Bi-Flex oral RxNorm: 1371805 oral No Start Date 09/01/2017 Inactive iron ER 159 mg (45 mg iron) tablet,extended release RxNorm: 529076 1 Tablet(s) PO BID No Start Date 04/26/2016 Inactive amlodipine 5 mg tablet RxNorm: 992337 1 Tablet(s) PO daily No Start Date 01/05/2016 Inactive aspirin 81 mg tablet,delayed release RxNorm: 774404 1 Tablet(s) PO daily No Start Date 05/09/2018 Inactive aspirin 81 mg capsule,delayed release RxNorm: 929199 1 Capsule(s) PO daily No Start Date 04/22/2019 Inactive dexamethasone 0.5 mg tablet RxNorm: 159246 1 Tablet(s) PO No Start Date 12/11/2015 Inactive Vitamin B-12 1,000 mcg tablet RxNorm: 580383 6 Tablet(s) PO every other day No Start Date 06/11/2018 Inactive Aleve 220 mg tablet RxNorm: 376498 Tablet(s) PO as needed No Start Date 04/22/2019 Inactive Vitamin D3 1,000 unit capsule RxNorm: 020121 2 Capsule(s) PO daily No Start Date 04/22/2019 Inactive colchicine 0.6 mg tablet RxNorm: 534368 Tablet(s) PO 1.2 mg for the first dose and 0.6 mg an hour after No Start Date 12/14/2015 Inactive nitroglycerin 0.4 mg sublingual tablet RxNorm: 077822 1 Tablet(s) SL x3 in 15 min as needed No Start Date 12/11/2015 Inactive Fish Oil 1,000 mg capsule RxNorm: 1 Capsule(s) PO daily No Start Date 04/26/2016 Inactive Ecotrin Low Strength 81 mg tablet,enteric coated RxNorm: 4207348 1 Tablet(s) PO daily No Start Date 09/27/2016 Inactive Carafate 1 gram tablet RxNorm: 038840 1 Tablet(s) PO every other day No Start Date 04/22/2019 Inactive Medication Administered Medication Codes Instructions Start Date Status Kenalog 40 mg/mL suspension for injection RxNorm: 1618618 Milliliter 06/12/2018 No longer Active Immunizations Vaccine [...] Dates Mixed hyperlipidemia ICD-10: E78.2 ICD-9: 272.2 04/23/2019 [...] Visit Effective Dates Notes Hospital Follow Up 04/23/2019 fatigue 03/05/2019 Hospital [...] 30.4 pg 10/20/2018 Cbc With Differential Ord2 [place]% 5.7 % 10/20/2018 Cbc With Differential Ord2 [...] 1.69 K/ul 10/20/2018 Cbc With Differential Ord2 [place] ABS# 0.6 K/ul 10/20/2018 Cbc With Differential Ord2 Eos ABS# 0.0 K/ul 10/20/2018 Cbc With Differential Ord2 Baso ABS# 0.0 K/ul 10/20/2018 Comp Metabolic Dsl034 NA 140 mEq/L 10/20/2018 Comp Metabolic Qxo999 K 4.0 mEq/L 10/20/2018 Comp Metabolic Lsx809 CL 104 mEq/L 10/20/2018 Comp Metabolic Hgq073 CO2 28.0 mEq/L 10/20/2018 Comp Metabolic Cxf352 ANION GAP 12 10/20/2018 Comp Metabolic Upt316 GLUCOSE 113 mg/dL 10/20/2018 Comp Metabolic Hgn756 Creat 1.0 mg/dL 10/20/2018 Comp Metabolic Puu560 eGFR 75 ml/min/1.73m2 10/20/2018 Comp Metabolic Qou595 BUN 18 mg/dL 10/20/2018 Comp Metabolic Gqh290 B/C Ratio 17.8 Ratio 10/20/2018 Comp Metabolic Vjz088 CALCIUM 9.8 mg/dL 10/20/2018 Comp Metabolic Tmd240 ALK PHOS 70 U/L 10/20/2018 Comp Metabolic Ggc115 AST(SGOT) 15 U/L 10/20/2018 Comp Metabolic Clu324 ALT(SGPT) 18 U/L 10/20/2018 Comp Metabolic Ijb939 BILI T 1.1 mg/dL 10/20/2018 Comp Metabolic Opj241 ALBUMIN 4.4 g/dL 10/20/2018 Comp Metabolic Bwg436 TPRO 6.9 g/dL 10/20/2018 Comp Metabolic Dze291 GLOB 2.5 g/dL 10/20/2018 Comp Metabolic Fgn959 A/G Ratio 1.7 Ratio 10/20/2018 Comp Metabolic Jdn398 Osmo 282 mOsmo 10/20/2018 Urinalysis Ord28 U-Color [...] 29.0 pg 07/14/2018 Cbc With Differential Ord2 [place]% 7.5 % 07/14/2018 Cbc With Differential Ord2 [...] 1.92 K/ul 07/14/2018 Cbc With Differential Ord2 [place] ABS# 0.4 K/ul 07/14/2018 Cbc With Differential Ord2 Eos ABS# 0.2 K/ul 07/14/2018 Cbc With Differential Ord2 Baso ABS# 0.0 K/ul 07/14/2018 Renal Agt581 NA 140 mEq/L 07/14/2018 Renal Rar762 K 4.2 mEq/L 07/14/2018 Renal Aat807 CL 103 mEq/L 07/14/2018 Renal Guy195 CO2 29.0 mEq/L 07/14/2018 Renal Chp901 ANION GAP 12 07/14/2018 Renal Mfe797 Osmo 280 mOsmo 07/14/2018 Renal Rjm562 GLUCOSE 95 mg/dL 07/14/2018 Renal Kai510 BUN 15 mg/dL 07/14/2018 Renal Npn057 Creat 1.2 mg/dL 07/14/2018 Renal Spx291 eGFR 64 ml/min/1.73m2 07/14/2018 Renal Tgd114 B/C Ratio 12.8 Ratio 07/14/2018 Renal Nmx316 CALCIUM 9.6 mg/dL 07/14/2018 Renal Ufi629 PHOS 3.2 mg/dL 07/14/2018 Renal Pjw277 ALBUMIN 4.4 g/dL 07/14/2018 Magnesium Ord90 Mag [...] 29.7 pg 06/08/2018 Cbc With Differential Ord2 [place]% 8.7 % 06/08/2018 Cbc With Differential Ord2 [...] 2.14 K/ul 06/08/2018 Cbc With Differential Ord2 [place] ABS# 0.5 K/ul 06/08/2018 Cbc With Differential Ord2 Eos ABS# 0.2 K/ul 06/08/2018 Cbc With Differential Ord2 Baso ABS# 0.0 K/ul 06/08/2018 Comp Metabolic Jec141 NA 139 mEq/L 06/08/2018 Comp Metabolic Ylt442 K 4.6 mEq/L 06/08/2018 Comp Metabolic Fhd989 CL 105 mEq/L 06/08/2018 Comp Metabolic Pdt187 CO2 26.0 mEq/L 06/08/2018 Comp Metabolic Rmx802 ANION GAP 13 06/08/2018 Comp Metabolic Jzj054 GLUCOSE 95 mg/dL 06/08/2018 Comp Metabolic Hvd187 Creat 1.2 mg/dL 06/08/2018 Comp Metabolic Lyc489 eGFR 59 ml/min/1.73m2 06/08/2018 Comp Metabolic Stx732 BUN 12 mg/dL 06/08/2018 Comp Metabolic Yqu077 B/C Ratio 9.7 Ratio 06/08/2018 Comp Metabolic Zek845 CALCIUM 9.9 mg/dL 06/08/2018 Comp Metabolic Eck847 ALK PHOS 70 U/L 06/08/2018 Comp Metabolic Mdn453 AST(SGOT) 21 U/L 06/08/2018 Comp Metabolic Mxy664 ALT(SGPT) 20 U/L 06/08/2018 Comp Metabolic Gww323 BILI T 1.0 mg/dL 06/08/2018 Comp Metabolic Vrw753 ALBUMIN 4.5 g/dL 06/08/2018 Comp Metabolic Jkg070 TPRO 7.2 g/dL 06/08/2018 Comp Metabolic Wmv506 GLOB 2.8 g/dL 06/08/2018 Comp Metabolic Akr806 A/G Ratio 1.6 Ratio 06/08/2018 Comp Metabolic Gqr370 Osmo 277 mOsmo 06/08/2018 Cbc With Differential [...] 30.6 pg 05/10/2018 Cbc With Differential Ord2 [place]% 6.5 % 05/10/2018 Cbc With Differential Ord2 [...] 1.94 K/ul 05/10/2018 Cbc With Differential Ord2 [place] ABS# 0.4 K/ul 05/10/2018 Cbc With Differential [...] Ord30 C/HDL 4.2 Ratio 01/26/2018 Comp Metabolic Oja227 NA 138 mEq/L 01/26/2018 Comp Metabolic Jbb267 K 4.2 mEq/L 01/26/2018 Comp Metabolic Cle790 CL 105 mEq/L 01/26/2018 Comp Metabolic Hpo764 CO2 23.0 mEq/L 01/26/2018 Comp Metabolic Yeu653 ANION GAP 14 01/26/2018 Comp Metabolic Arz682 GLUCOSE 89 mg/dL 01/26/2018 Comp Metabolic Clv681 Creat 1.1 mg/dL 01/26/2018 Comp Metabolic Kld623 eGFR 70 ml/min/1.73m2 01/26/2018 Comp Metabolic Enq091 BUN 18 mg/dL 01/26/2018 Comp Metabolic Rey096 B/C Ratio 16.8 Ratio 01/26/2018 Comp Metabolic Kal042 CALCIUM 9.2 mg/dL 01/26/2018 Comp Metabolic Etn960 ALK PHOS 67 U/L 01/26/2018 Comp Metabolic Xdu701 AST(SGOT) 31 U/L 01/26/2018 Comp Metabolic Jat593 ALT(SGPT) 23 U/L 01/26/2018 Comp Metabolic Prh113 BILI T 1.7 mg/dL 01/26/2018 Comp Metabolic Iya528 ALBUMIN 3.9 g/dL 01/26/2018 Comp Metabolic Ipu513 TPRO 6.7 g/dL 01/26/2018 Comp Metabolic Inr158 GLOB 2.8 g/dL 01/26/2018 Comp Metabolic Iti989 A/G Ratio 1.4 Ratio 01/26/2018 Comp Metabolic Ulm880 Osmo 277 mOsmo 01/26/2018 Cbc With Differential [...] 30.7 pg 01/26/2018 Cbc With Differential Ord2 [place]% 7.1 % 01/26/2018 Cbc With Differential Ord2 [...] 2.40 K/ul 01/26/2018 Cbc With Differential Ord2 [place] ABS# 0.5 K/ul 01/26/2018 Cbc With Differential Ord2 Eos ABS# 0.2 K/ul 01/26/2018 Cbc With Differential Ord2 Baso ABS# 0.0 K/ul 01/26/2018 Tsh Ord6 TSH (3rd IS) 1.81 uIU/mL 01/26/2018 Testosterone Pvd282 Testo 370.3 ng/dL 01/26/2018 C A/B FLU [id number] Influenza A Scr Negative 12/08/2017 C A/B FLU [id number] Influenza B Scr Negative 12/08/2017 C A/B FLU [id number] Influenza Intrp B AG:PRID:PT:NOSE:NOM:IF See Footnote 12/08/2017 [...] 30.8 pg 04/11/2017 Cbc With Differential Ord2 [place]% 8.1 % 04/11/2017 Cbc With Differential Ord2 [...] 1.91 K/ul 04/11/2017 Cbc With Differential Ord2 [place] ABS# 0.5 K/ul 04/11/2017 Cbc With Differential Ord2 Eos ABS# 0.2 K/ul 04/11/2017 Cbc With Differential Ord2 Baso ABS# 0.0 K/ul 04/11/2017 Comp Metabolic Mwg655 NA 140 mEq/L 04/11/2017 Comp Metabolic Hhd462 K 4.1 mEq/L 04/11/2017 Comp Metabolic Dfj845 CL 105 mEq/L 04/11/2017 Comp Metabolic Nud245 CO2 26.0 mEq/L 04/11/2017 Comp Metabolic Mvw855 ANION GAP 13 04/11/2017 Comp Metabolic Hxh743 GLUCOSE 88 mg/dL 04/11/2017 Comp Metabolic Mkd020 Creat 1.1 mg/dL 04/11/2017 Comp Metabolic Yrp819 eGFR 66 ml/min/1.73m2 04/11/2017 Comp Metabolic Pwy060 BUN 18 mg/dL 04/11/2017 Comp Metabolic Ggk639 B/C Ratio 15.9 Ratio 04/11/2017 Comp Metabolic Wkm502 CALCIUM 9.0 mg/dL 04/11/2017 Comp Metabolic Vuq735 ALK PHOS 72 U/L 04/11/2017 Comp Metabolic Nca701 AST(SGOT) 22 U/L 04/11/2017 Comp Metabolic Low225 ALT(SGPT) 26 U/L 04/11/2017 Comp Metabolic Zul014 BILI T 1.0 mg/dL 04/11/2017 Comp Metabolic Eye627 ALBUMIN 4.0 g/dL 04/11/2017 Comp Metabolic Lby604 TPRO 6.4 g/dL 04/11/2017 Comp Metabolic Spk531 GLOB 2.4 g/dL 04/11/2017 Comp Metabolic Crb660 A/G Ratio 1.6 Ratio 04/11/2017 Comp Metabolic Hqx738 Osmo 281 mOsmo 04/11/2017 Vitamin D 25 Oh Jsd1135 VITAMIN D, 25 HYDROXY 65.52 ng/mL 05/19/2016 [...] 28.5 pg 05/18/2016 Cbc With Differential Ord2 [place]% 7.2 % 05/18/2016 Cbc With Differential Ord2 [...] 1.80 K/ul 05/18/2016 Cbc With Differential Ord2 [place] ABS# 0.4 K/ul 05/18/2016 Cbc With Differential Ord2 Eos ABS# 0.2 K/ul 05/18/2016 Cbc With Differential Ord2 Baso ABS# 0.0 K/ul 05/18/2016 Magnesium Ord90 Mag 2.0 mg/dL 05/18/2016 Renal Ahw597 NA 139 mEq/L 05/18/2016 Renal Pnj696 K 4.0 mEq/L 05/18/2016 Renal Gon083 CL 104 mEq/L 05/18/2016 Renal Rqq062 CO2 27.0 mEq/L 05/18/2016 Renal Ajv088 ANION GAP 12 05/18/2016 Renal Dfy695 Osmo 279 mOsmo 05/18/2016 Renal Dtf950 GLUCOSE 91 mg/dL 05/18/2016 Renal Laf979 BUN 18 mg/dL 05/18/2016 Renal Rjl847 Creat 1.3 mg/dL 05/18/2016 Renal Kdr605 eGFR 59 ml/min/1.73m2 05/18/2016 Renal Llb464 B/C Ratio 14.3 Ratio 05/18/2016 Renal Avn288 CALCIUM 9.3 mg/dL 05/18/2016 Renal Cza079 PHOS 3.2 mg/dL 05/18/2016 Renal Jnk008 ALBUMIN 4.2 g/dL 05/18/2016 Random Urine Protein/Creatinine Ratio Ecn6362 U Prot 15.0 mg/dl 05/18/2016 Random Urine Protein/Creatinine Ratio Gyy4490 U CREAT 141.0 mg/dL 05/18/2016 Random Urine Protein/Creatinine Ratio Xdm7352 R MTP/Creat Ratio 0.11 05/18/2016 Urinalysis Ord28 [...] 28.5 pg 02/19/2016 Cbc With Differential Ord2 [place]% 9.5 % 02/19/2016 Cbc With Differential Ord2 [...] 1.91 K/ul 02/19/2016 Cbc With Differential Ord2 [place] ABS# 0.5 K/ul 02/19/2016 Cbc With Differential Ord2 Eos ABS# 0.2 K/ul 02/19/2016 Cbc With Differential Ord2 Baso ABS# 0.0 K/ul 02/19/2016 Cbc With Differential Ord2 New Analyzer Notice Please note new ref ranges starting 10-29-2015 due to implemntation of new five part differential hematolgy analyzer. 02/19/2016 Tsh Ord6 hTSH II 2.10 uIU/mL 02/19/2016 Comp Metabolic Hyz899 NA 138 mEq/L 02/19/2016 Comp Metabolic Guz971 K 3.8 mEq/L 02/19/2016 Comp Metabolic Snb949 CL 103 mEq/L 02/19/2016 Comp Metabolic Aqn376 CO2 28.0 mEq/L 02/19/2016 Comp Metabolic Znc554 ANION GAP 11 02/19/2016 Comp Metabolic Qxs210 GLUCOSE 94 mg/dL 02/19/2016 Comp Metabolic Wlc422 Creat 1.0 mg/dL 02/19/2016 Comp Metabolic Xkf074 eGFR 75 ml/min/1.73m2 02/19/2016 Comp Metabolic Fgp693 BUN 18 mg/dL 02/19/2016 Comp Metabolic Cha807 B/C Ratio 17.6 Ratio 02/19/2016 Comp Metabolic Reb441 CALCIUM 9.6 mg/dL 02/19/2016 Comp Metabolic Mrp693 ALK PHOS 93 U/L 02/19/2016 Comp Metabolic Fqb975 AST(SGOT) 23 U/L 02/19/2016 Comp Metabolic Qrz867 ALT(SGPT) 19 U/L 02/19/2016 Comp Metabolic Hii607 BILI T 0.8 mg/dL 02/19/2016 Comp Metabolic Zqn253 ALBUMIN 4.1 g/dL 02/19/2016 Comp Metabolic Tho389 TPRO 6.8 g/dL 02/19/2016 Comp Metabolic Qro320 GLOB 2.7 g/dL 02/19/2016 Comp Metabolic Szq129 A/G Ratio 1.5 Ratio 02/19/2016 Comp Metabolic Hrr958 Osmo 277 mOsmo 02/19/2016 Uric Acid Ord77 Uric A 6.0 mg/dL 02/19/2016 Total Psa Ord10 PSA 0.82 ng/mL 02/19/2016 Comp Metabolic Eew433 NA 140 mEq/L 12/16/2015 Comp Metabolic Pvo389 K 4.0 mEq/L 12/16/2015 Comp Metabolic Bwa526 CL 105 mEq/L 12/16/2015 Comp Metabolic Kko733 CO2 24.0 mEq/L 12/16/2015 Comp Metabolic Ang945 ANION GAP 15 12/16/2015 Comp Metabolic Qko640 GLUCOSE 85 mg/dL 12/16/2015 Comp Metabolic Jju469 Creat 1.2 mg/dL 12/16/2015 Comp Metabolic Zam603 eGFR 65 ml/min/1.73m2 12/16/2015 Comp Metabolic Ruv666 BUN 14 mg/dL 12/16/2015 Comp Metabolic Iko583 B/C Ratio 12.1 Ratio 12/16/2015 Comp Metabolic Hru234 CALCIUM 9.1 mg/dL 12/16/2015 Comp Metabolic Lqq861 ALK PHOS 162 U/L 12/16/2015 Comp Metabolic Pmr895 AST(SGOT) 14 U/L 12/16/2015 Comp Metabolic Cel926 ALT(SGPT) 17 U/L 12/16/2015 Comp Metabolic Zgd903 BILI T 1.0 mg/dL 12/16/2015 Comp Metabolic Tdw671 ALBUMIN 3.4 g/dL 12/16/2015 Comp Metabolic Bqm562 TPRO 6.2 g/dL 12/16/2015 Comp Metabolic Kxc366 GLOB 2.9 g/dL 12/16/2015 Comp Metabolic Hiu647 A/G Ratio 1.2 Ratio 12/16/2015 Comp Metabolic Ooq657 Osmo 279 mOsmo 12/16/2015 Uric Acid Ord77 [...] 29.9 % 12/16/2015 Cbc With Differential Ord2 [place]% 7.5 % 12/16/2015 Cbc With Differential Ord2 [...] 1.52 K/ul 12/16/2015 Cbc With Differential Ord2 [place] ABS# 0.4 K/ul 12/16/2015 Cbc With Differential [...] C/HDL 4.0 Ratio 07/21/2015 Urine Protein 24Hr Pou947 U Prot 5.1 mg/dl 05/16/2015 Urine Protein 24Hr Vvr195 U Prot24 71.5 mg/24hr 05/16/2015 Total Volume Urine Yvm299 TV/24hr 1400 ml 05/16/2015 Total Psa Ord10 PSA 0.70 ng/mL 05/15/2015 Renal Emq668 NA 135 mEq/L 05/15/2015 Renal Ghk351 K 3.9 mEq/L 05/15/2015 Renal Jmr870 CL 101 mEq/L 05/15/2015 Renal Udv966 CO2 27.0 mEq/L 05/15/2015 Renal Exn044 ANION GAP 11 05/15/2015 Renal Hfw993 Osmo 274 mOsmo 05/15/2015 Renal Olx241 GLUCOSE 132 mg/dL 05/15/2015 Renal Wwr552 BUN 19 mg/dL 05/15/2015 Renal Jtg174 Creat 1.1 mg/dL 05/15/2015 Renal Rhm584 eGFR 67 ml/min/1.73m2 05/15/2015 Renal Fdm959 B/C Ratio 17.0 Ratio 05/15/2015 Renal Ahm760 CALCIUM 9.6 mg/dL 05/15/2015 Renal Jeh460 PHOS 3.0 mg/dL 05/15/2015 Renal Yqv148 ALBUMIN 4.3 g/dL 05/15/2015 Cbc With Differential [...] Result Effective Dates Constitutional No recent illness 04/23/2019 Constitutional No [...] General 1995 Ears/Nose/Throat lips/teeth/gingiva Overall: normal dentition 01/08/2019 None [...] Formatting Model/CDA Sections, Assigned to/Sharee Ramirez CPT-4: 45971Kwxdahl 07/05/2018 THER/PROPH/DIAG INJ SC/IM CPT-4: 57515 06/12/2018 TRIAMCINOLONE ACET INJ NOS CPT-4: J3301 06/12/2018 PPPS, SUBSEQ VISIT CPT- 4: G0439 08/03/2017 ADMIN INFLUENZA VIRUS VAC CPT-4: G0008 06/28/2016 FLU VACC PRSV FREE INC ANTIG CPT-4: 95335 06/28/2016 TENIVAC TD VACCINE NO PRSRV 7/> IM CPT-4: 30903 06/28/2016 OCCULT BLOOD FECES CPT- 4: 94251 02/19/2015 Vital Signs Date Vital 04/23/2019 Blood Pressure 1: 140/70 Code: 8480-6 BMI: 28.5 Code: 56766-5 Heart Rate 1: 58 bpm Height: 6' SpO2: 92% Weight: 210 lbs 03/05/2019 Blood Pressure 1: 128/76 Code: 8480-6 BMI: 28.5 Code: 50967-3 Heart Rate 1: 85 bpm Height: 6' SpO2: 96% Weight: 210 lbs 02/12/2019 Blood Pressure 1: 110/70 Code: 8480-6 BMI: 28.5 Code: 66481-5 Heart Rate 1: 70 bpm Height: 6' SpO2: 93% Weight: 210 lbs 01/29/2019 Blood Pressure 1: 110/78 Code: 8480-6 BMI: 28.5 Code: 26244-5 Heart Rate 1: 98 bpm Height: 6' SpO2: 90% Weight: 210 lbs 2019 Blood Pressure 1: 136/74 Code: 8480-6 BMI: 28.6 Code: 75921-9 Heart Rate 1: 97 bpm Height: 6' SpO2: 94% Weight: 211 lbs 01/08/2019 Blood Pressure 1: 128/86 Code: 8480-6 BMI: 28.6 Code: 75378-9 Heart Rate 1: 96 bpm Height: 6' SpO2: 97% Weight: 211 lbs 12/25/2018 Blood Pressure 1: 112/62 Code: 8480-6 BMI: 28.6 Code: 86653-5 Heart Rate 1: 76 bpm Height: 6' SpO2: 96% Weight: 211 lbs 12/13/2018 Blood Pressure 1: 114/78 Code: 8480-6 BMI: 29.4 Code: 14409-8 Heart Rate 1: 73 bpm Height: 6' SpO2: 93% Weight: 217 lbs 11/27/2018 Blood Pressure 1: 110/70 Code: 8480-6 BMI: 28.5 Code: 61430-5 Heart Rate 1: 90 bpm Height: 6' SpO2: 95% Temperature: 36.8 (C) / 98.2 (F) Weight: 210 lbs 8 oz 09/26/2018 Blood Pressure 1: 130/80 Code: 8480-6 BMI: 29.6 Code: 63751-7 Heart Rate 1: 98 bpm Height: 6' SpO2: 93% Weight: 218 lbs 08/10/2018 BMI: 29.4 Code: 16278-4 Height: 6' Weight: 217 lbs 07/26/2018 Blood Pressure 1: 116/72 Code: 8480-6 BMI: 29.4 Code: 65412-0 Heart Rate 1: 102 bpm Height: 6' SpO2: 96% Weight: 217 lbs 07/05/2018 Blood Pressure 1: 132/72 Code: 8480-6 Heart Rate 1: 60 bpm SpO2: 95% 06/12/2018 Blood Pressure 1: 120/78 Code: 8480-6 BMI: 29.6 Code: 57816-7 Heart Rate 1: 103 bpm Height: 6' SpO2: 96% Weight: 218 lbs 05/10/2018 Blood Pressure 1: 114/68 Code: 8480-6 BMI: 29.4 Code: 62532-7 Heart Rate 1: 92 bpm Height: 6' SpO2: 97% Weight: 217 lbs 03/27/2018 Blood Pressure 1: 126/74 Code: 8480-6 BMI: 30.1 Code: 31959-9 Heart Rate 1: 103 bpm Height: 6' SpO2: 96% Weight: 222 lbs 01/25/2018 Blood Pressure 1: 122/70 Code: 8480-6 Blood Pressure 2: 126/73 Code: 8480-6 Heart Rate 1: 63 bpm SpO2: 94% 01/24/2018 Blood Pressure 1: 110/72 Code: 8480-6 BMI: 29.7 Code: 23262-5 Heart Rate 1: 88 bpm Height: 6' SpO2: 95% Weight: 219 lbs 12/08/2017 Blood Pressure 1: 120/68 Code: 8480-6 BMI: 30.0 Code: 54285-3 Heart Rate 1: 91 bpm Height: 6' SpO2: 96% Temperature: 36.7 (C) / 98.1 (F) Weight: 221 lbs 10/27/2017 Blood Pressure 1: 124/76 Code: 8480-6 BMI: 30.1 Code: 42891-0 Heart Rate 1: 69 bpm Height: 6' SpO2: 95% Weight: 222 lbs 09/29/2017 Blood Pressure 1: 118/66 Code: 8480-6 BMI: 29.9 Code: 58786-0 Heart Rate 1: 81 bpm Height: 6' SpO2: 95% Weight: 220 lbs 8 oz 09/01/2017 Blood Pressure 1: 122/82 Code: 8480-6 BMI: 29.6 Code: 85863-9 Heart Rate 1: 75 bpm Height: 6' SpO2: 97% Weight: 218 lbs 08/03/2017 Blood Pressure 1: 120/68 Code: 8480-6 Heart Rate 1: 68 bpm Height: 6' SpO2: 94% Waist Measure (cm): 97 cm 04/26/2017 Blood Pressure 1: 122/72 Code: 8480-6 BMI: 29.4 Code: 00426-1 Heart Rate 1: 85 bpm Height: 6' SpO2: 92% Weight: 217 lbs 01/25/2017 Blood Pressure 1: 118/78 Code: 8480-6 BMI: 29.4 Code: 92764-5 Heart Rate 1: 72 bpm Height: 6' SpO2: 94% Temperature: 36.9 (C) / 98.5 (F) Weight: 217 lbs 10/26/2016 Blood Pressure 1: 152/86 Code: 8480-6 BMI: 29.7 Code: 13671-1 Heart Rate 1: 58 bpm Height: 6' Weight: 219 lbs 09/27/2016 Blood Pressure 1: 138/80 Code: 8480-6 BMI: 29.4 Code: 78426-7 Heart Rate 1: 52 bpm Height: 6' SpO2: 98% Weight: 217 lbs 06/28/2016 Blood Pressure 1: 128/86 Code: 8480-6 BMI: 29.6 Code: 87404-7 Heart Rate 1: 69 bpm Height: 6' SpO2: 93% Weight: 218 lbs 04/27/2016 Blood Pressure 1: 118/82 Code: 8480-6 BMI: 29.3 Code: 16928-5 Heart Rate 1: 85 bpm Height: 6' SpO2: 98% Weight: 216 lbs 02/17/2016 Blood Pressure 1: 132/80 Code: 8480-6 BMI: 28.8 Code: 85953-5 Heart Rate 1: 94 bpm Height: 6' SpO2: 98% Weight: 212 lbs 01/20/2016 Blood Pressure 1: 120/70 Code: 8480-6 BMI: 29.7 Code: 49795-5 Heart Rate 1: 87 bpm Height: 6' SpO2: 92% Weight: 219 lbs 01/06/2016 Blood Pressure 1: 122/88 Code: 8480-6 BMI: 28.8 Code: 09688-2 Heart Rate 1: 83 bpm Height: 6' SpO2: 97% Weight: 212 lbs 12/16/2015 Blood Pressure 1: 98/62 Code: 8480-6 Heart Rate 1: 62 bpm Height: 6' SpO2: 90% Weight: 11/27/2015 Blood Pressure 1: 90/64 Code: 8480-6 Blood Pressure 1: 110/80 Code: 8480-6 Heart Rate 1: 91 bpm Height: 6' SpO2: 92% Weight: 07/30/2015 Blood Pressure 1: 112/82 Code: 8480-6 BMI: 30.5 Code: 58487-0 Heart Rate 1: 82 bpm Height: 6' SpO2: 92% Weight: 225 lbs 06/09/2015 Blood Pressure 1: 130/76 Code: 8480-6 BMI: 31.1 Code: 41179-5 Heart Rate 1: 65 bpm Height: 6' SpO2: 96% Weight: 229 lbs 04/29/2015 Blood Pressure 1: 118/78 Code: 8480-6 BMI: 30.7 Code: 19198-3 Heart Rate 1: 70 bpm Height: 6' Weight: 226 lbs 02/19/2015 Blood Pressure 1: 118/70 Code: 8480-6 BMI: 29.7 Code: 46620-8 Heart Rate 1: 68 bpm Height: 6' Weight: 219 lbs Functional Status No Functional Status data History of Present Illness Symptom Name Status Result Effective Date Notes _ Other: aneurysm, weakness 04/23/2019 None Quality [...] data Encounters Encounter Performer Location Codes Date ([id number]) [id number] EST. PATIENT, LEVEL IV Diagnosis: Essential (primary) hypertension[ICD10: I10] Diagnosis: Major depressive disorder, recurrent, mild[ICD10: F33.0] Diagnosis: Muscle weakness (generalized)[ICD10: M62.81] Diagnosis: Mixed hyperlipidemia[ICD10: E78.2] Lesley Butcher MD, [facility] CPT- 4: 37306 04/23/2019 ([id number]) 67202 EST. PATIENT, LEVEL IV Diagnosis: Essential (primary) hypertension[ICD10: I10] Diagnosis: Unsteadiness on feet[ICD10: R26.81] Diagnosis: Abdominal aortic aneurysm, without rupture[ICD10: I71.4] Lesley Butcher MD, [facility] CPT-4: 67550 03/05/2019 ([id number]) 63494 EST. PATIENT, LEVEL IV Diagnosis: Paroxysmal atrial fibrillation[ICD10: I48.0] Diagnosis: Essential (primary) hypertension[ICD10: I10] Diagnosis: Frequency of micturition[ICD10: R35.0] Merline Butcher MD, [facility] CPT-4: 61372 02/12/2019 ([id number]) 80482 EST. PATIENT, LEVEL V Diagnosis: Essential (primary) hypertension[ICD10: I10] Diagnosis: Dizziness and giddiness[ICD10: R42] Diagnosis: Vertigo of central origin, right ear[ICD10: H81.41] Lesley Butcher MD, [facility] CPT-4: 85463 01/29/2019 73373 EST. PATIENT, LEVEL III Diagnosis: Pleurodynia[ICD10: R07.81] Mady Butcher MD, [facility] CPT-4: 41831 2019 ([id number]) 45391 EST. PATIENT, LEVEL III Diagnosis: Other allergic rhinitis[ICD10: J30.89] Merline Butcher MD, [facility] CPT-4: 38609 01/08/2019 83423 EST. PATIENT, LEVEL IV Diagnosis: Other fatigue[ICD10: R53.83] Diagnosis: Obstructive sleep apnea (adult) (pediatric)[ICD10: G47.33] Diagnosis: Other malaise[ICD10: R53.81] Mady Butcher MD, [facility] CPT-4: 77085 12/25/2018 ([id number]) 29236 EST. PATIENT, LEVEL IV Diagnosis: Shortness of breath[ICD10: R06.02] Diagnosis: Other fatigue[ICD10: R53.83] Diagnosis: Obstructive sleep apnea (adult) (pediatric)[ICD10: G47.33] Diagnosis: Other malaise[ICD10: R53.81] Lesley Butcher MD, [facility] CPT-4: 89442 12/13/2018 ([id number]) 91345 EST. PATIENT, LEVEL IV Diagnosis: Shortness of breath[ICD10: R06.02] Diagnosis: Dizziness and giddiness[ICD10: R42] Diagnosis: Other fatigue[ICD10: R53.83] Diagnosis: Essential (primary) hypertension[ICD10: I10] Diagnosis: Muscle weakness (generalized)[ICD10: M62.81] Merline Butcher MD, [facility] CPT-4: 23877 11/27/2018 ([id number]) 06550 EST. PATIENT, LEVEL IV Diagnosis: Essential (primary) hypertension[ICD10: I10] Diagnosis: Vertigo of central origin, right ear[ICD10: H81.41] Diagnosis: Low back pain[ICD10: M54.5] Lesley Butcher MD, [facility] CPT-4: 09587 09/26/2018 ([id number]) 06945 EST. PATIENT, LEVEL III Diagnosis: Dizziness and giddiness[ICD10: R42] Diagnosis: Vertigo of central origin, right ear[ICD10: H81.41] Diagnosis: Essential (primary) hypertension[ICD10: I10] Lesley Butcher MD, [facility] CPT-4: 51079 07/26/2018 ([id number]) 68831 EST. PATIENT, LEVEL III Diagnosis: Essential (primary) hypertension[ICD10: I10] Lesley Butcher MD, [facility] CPT-4: 40696 06/12/2018 ([id number]) 60575 EST. PATIENT, LEVEL IV Diagnosis: Other iron deficiency anemias[ICD10: D50.8] Diagnosis: Weakness[ICD10: R53.1] Diagnosis: Diverticulosis of large intestine without perforation or abscess with bleeding[ICD10: K57.31] Lesley Butcher MD, [facility] CPT-4: 01612 05/10/2018 ([id number]) 44782 EST. PATIENT, LEVEL IV Diagnosis: Essential (primary) hypertension[ICD10: I10] Diagnosis: Major depressive disorder, recurrent, mild[ICD10: F33.0] Diagnosis: Sensorineural hearing loss, bilateral[ICD10: H90.3] Lesley Butcher MD, [facility] CPT-4: 74584 03/27/2018 ([id number]) Miscellaneous no charge Diagnosis: Essential (primary) hypertension[ICD10: I10] Mady Butcher MD [facility] CPT-4: 07595 01/25/2018 ([id number]) 81292 EST. PATIENT, LEVEL IV Diagnosis: Essential (primary) hypertension[ICD10: I10] Diagnosis: Sensorineural hearing loss, bilateral[ICD10: H90.3] Diagnosis: Mixed hyperlipidemia[ICD10: E78.2] Diagnosis: Major depressive disorder, recurrent, mild[ICD10: F33.0] Lesley Butcher MD, [facility] CPT-4: 43784 01/24/2018 27513 EST. PATIENT, LEVEL IV Diagnosis: Other malaise[ICD10: R53.81] Diagnosis: Fever, unspecified[ICD10: R50.9] Mady Butcher MD, [facility] CPT-4: 18276 12/08/2017 ([id number]) 39424 EST. PATIENT, LEVEL III Diagnosis: Essential (primary) hypertension[ICD10: I10] Lesley Butcher MD, [facility] CPT-4: 92601 10/27/2017 ([id number]) 07582 EST. PATIENT, LEVEL III Diagnosis: Benign prostatic hyperplasia with lower urinary tract symptoms[ICD10: N40.1] Diagnosis: Dysphagia, pharyngeal phase[ICD10: R13.13] Lesley Butcher MD, [facility] CPT-4: 66918 09/29/2017 ([id number]) 65628 EST. 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 PATIENT, LEVEL IV Diagnosis: Essential (primary) hypertension[ICD10: I10] Diagnosis: Major depressive disorder, recurrent, mild[ICD10: F33.0] Diagnosis: Mixed hyperlipidemia[ICD10: E78.2] Lesley Butcher MD, [facility] CPT- 4: 45302 04/26/2017 [id number]) 34718 EST. PATIENT, LEVEL IV Diagnosis: Essential (primary) hypertension[ICD10: I10] Diagnosis: Major depressive disorder, recurrent, mild[ICD10: F33.0] Diagnosis: Urge incontinence[ICD10: N39.41] Lesley Butcher MD, [facility] CPT-4: 04989 01/25/2017 ([id number]) 36672 EST. PATIENT, LEVEL IV Diagnosis: Essential (primary) hypertension[ICD10: I10] Diagnosis: Major depressive disorder, recurrent, mild[ICD10: F33.0] Diagnosis: Urge incontinence[ICD10: N39.41] Lesley Butcher MD, [facility] CPT-4: 02216 10/26/2016 ([id number]) 24322 EST. PATIENT, LEVEL III Diagnosis: Essential (primary) hypertension[ICD10: I10] Diagnosis: Major depressive disorder, recurrent, mild[ICD10: F33.0] Diagnosis: Urge incontinence[ICD10: N39.41] Lesley Butcher MD, [facility] CPT-4: 20219 09/27/2016 [id number]) 19574 EST. PATIENT, LEVEL IV Diagnosis: Essential (primary) hypertension[ICD10: I10] Diagnosis: Encounter for immunization[ICD10: Z23] Diagnosis: Laceration without foreign body of left forearm, initial encounter[ICD10: S51.812A] Diagnosis: Laceration without foreign body of right forearm, initial encounter[ICD10: S51.811A] Diagnosis: Major depressive disorder, recurrent, mild[ICD10: F33.0] Lesley Butcher MD, [facility] CPT-4: 96489 06/28/2016 [id number]) 17121 EST. 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 PATIENT, LEVEL V Diagnosis: Essential (primary) hypertension[ICD10: I10] Diagnosis: Major depressive disorder, recurrent, mild[ICD10: F33.0] Diagnosis: Idiopathic gout, left ankle and foot[ICD10: M10.072] Diagnosis: Mixed hyperlipidemia[ICD10: E78.2] Lesley Butcher MD, [facility] CPT- 4: 27776 02/17/2016 ([id number]) 09412 EST. 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 PATIENT, LEVEL IV Diagnosis: Weakness[ICD10: R53.1] Diagnosis: Gout, unspecified[ICD10: M10.9] Diagnosis: Hypotension, unspecified[ICD10: I95.9] Lesley Butcher MD, [facility] CPT-4: 86541 12/16/2015 ([id number]) Patient admitted to the hospital from clinic (NO CHARGE) Diagnosis: Hypoxemia[ICD10: R09.02] Diagnosis: Weakness[ICD10: R53.1] Diagnosis: Dyspnea, unspecified[ICD10: R06.00] Mady Butcher MD, [facility] CPT- 4: 73597G 11/27/2015 ([id number]) 17183 EST. PATIENT, LEVEL III Diagnosis: Essential (primary) hypertension[ICD10: I10] Diagnosis: Gastro-esophageal reflux disease without esophagitis[ICD10: K21.9] Lesley Butcher MD, [facility] CPT-4: 93890 07/30/2015 ([id number]) 30330 EST. PATIENT, LEVEL III Diagnosis: ESSENTIAL HYPERTENSION[ICD9: 401.9] [facility]line [facility] CPT-4: 06097 06/09/2015 ([id number]) 84855 EST. PATIENT, LEVEL III Diagnosis: ESSENTIAL HYPERTENSION[ICD9: 401.9] [facility] CPT- 4: 69541 04/29/2015 ([id number]) OFFICE/OUTPATIENT VISIT NEW Diagnosis: ESSENTIAL HYPERTENSION[ICD9: 401.9] Diagnosis: DEPRESSIVE DISORDER NEC[ICD9: 311] Diagnosis: Enlarged prostate[ICD9: 600.00] Diagnosis: Nasal inflammation due to allergen[ICD9: 477.9] [facility] CPT-4: 29331 02/19/2015 Plan of Care Planned Activity Notes [...] aneurysm - defer to Dr. Valentine at [facility]. 04/23/2019 Patient Education: Patient Medication Summary Completed [...] discussion. 03/05/2019 Appointment: [phone] (15 min) Moderate 03/05/2019 Patient Education: Patient Medication Summary Completed 03/05/2019 Visit Plan: Afib-new diagnosis with cardiology -Dr Deleon -now on coumadin-will return to [place] in 2 weeks to discuss watchman device EIZ-iwqewfnouq-ld changes Urinary frequency and urgency -check UA -patient unable to void at appt -will bring back sample 02/12/2019 Appointment: [phone] (30 min) Complex 02/12/2019 Patient Education: Patient [...] when he had previous blockages - 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 They have a potential appt pending. 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 They have a potential appt pending. I spent 45 minutes with the patient and his family in direct contact and discussion. 01/29/2019 Appointment: Lesley Butcher WPtel: [phone] [facility] (30 min) Complex 01/29/2019 Patient Education: Patient Medication Summary Completed 01/29/2019 Visit Plan: Left rib pain - x-ray pending - The pt is to use prn antiinflammatories to manage acute pain. The patient is to call the office if the pain is worsening or does not improve. 2019 Appointment: Mady Dunne WPtel: [phone] [facility] (30 min) Complex 2019 Patient [...] spray. 01/08/2019 Appointment: Merline Rose WPtel: [phone] [phone] (30 min) Complex 01/08/2019 Patient Education: Patient Medication Summary Completed 01/08/2019 Visit Plan: Fatigue, shortness of breath, dizziness - pt is to continue PT, pt is to follow up with Dr. Panda and Dr. Harvey and is to notify clinic with any changes in the current treatment plan. 12/25/2018 Appointment: [facility] Dunne [facility]el[phone] [place] (15 min) Moderate 12/25/2018 Patient Education: [...] 96% 12/13/2018 Appointment: Lesley Butcher WPtel: [phone] [facility] [place] (15 min) Moderate 12/13/2018 Patient Education: Patient Medication Summary Completed 12/13/2018 Visit Plan: SLU-wncjuvh-kdhaayzng of breath -patient reports worsening of chronic symptoms -will check EKG and cardiac enzymes to evaluate for acute changes -recommend patient follow up with his social sciences lecturer, Dr Sharyn vu -patient, and daughter verbalized understanding of plan. Generalized weakness-discussed PT referral after cleared by cardiology -patient's will call us when she wants to have it set up HTN-no change but monitor at home 11/27/2018 Appointment: Merline Rose WPtel: [phone] [place] (15 min) Moderate 11/27/2018 [...] sessions. 09/26/2018 Appointment: Lesley Butcher WPtel: [phone] (15 min) Moderate 09/26/2018 Patient Education: [...] surrogate. 08/10/2018 Appointment: M[facility] Dunne [facility]Ptel: [phone] [facility] - Annual Wellness Visit 08/10/2018 Patient [...] home. 07/26/2018 Appointment: Lesley Butcher WPtel: [phone] (15 min) Moderate 07/26/2018 Patient Education: [...] dexamethasone. 06/12/2018 Appointment: Lesley Butcher WPtel: [phone] [facility] (15 min) Moderate 06/12/2018 Patient Education: Patient Medication Summary Completed 06/12/2018 Visit Plan: Diverticulosis with recent GI bleeding - improved - continue with supportive care, avoid foods which cause any abdominal pain - monitor symptoms - call if any pain or bleeding recurs. Anemia - check labs today. Weakness - continue with increasing of activity. 05/10/2018 Appointment: Lesley Butcher WPtel: [phone] [facility] (30 min) Complex 05/10/2018 Patient Education: [...] implant. 03/27/2018 Appointment: Lesley Butcher WPtel: [phone] [facility] (15 min) Moderate 03/27/2018 Patient Education: Patient [...] to medications. 01/24/2018 Appointment: Lesley Butcher WPtel: [facility] (15 min) Moderate 01/24/2018 Patient Education: Patient Medication Summary Completed 01/24/2018 Visit Plan: Influenza - pt started on tamiflu - pt to start on anti-inflammatories, tylenol and monitor symptoms. Pt to call if not improving. Pt to alert any close contacts as to illness. 12/08/2017 Appointment: Mady Dunne WPtel: [facility] (30 min) Complex 12/08/2017 Patient [...] at home. 10/27/2017 Appointment: Lesley Butcher WPtel: [facility] (15 min) Moderate 10/27/2017 Patient Education: Patient Medication Summary Completed 10/27/2017 Referral: External, Ordering Provider Referral Initiated 10/12/2017 Visit Plan: BPH - continue with dutasteride and flomax Dysphagia - referral to Dr. Kumar for EGD - question stricture - dysphagia intermittently - hx of stricture. 09/29/2017 Appointment: Lesley Butcher WPtel: [phone] [facility] (15 min) Moderate 09/29/2017 Patient Education: Patient Medication Summary Completed 09/29/2017 Care Plan: Referral Order SNOMED-CT : [id number] Pending 09/29/2017 Visit Plan: Hypertension - well [...] recommended patient to have an evaluation at [facility] to see if he has potential for cochlear implant. 09/01/2017 Appointment: Lesley Butcher WPtel: [phone] (15 min) Moderate 09/01/2017 Patient Education: Patient Medication Summary Completed 09/01/2017 Care Plan: Referral Order SNOMED-CT : [id number] Pending 09/01/2017 Visit Plan: Medicare Exam - [...] care surrogate. 08/03/2017 Appointment: Mady Dunne WPtel: [facility] [facility] - Welcome to Medicare visit 08/03/2017 [...] medications. 04/26/2017 Appointment: Lesley Butcher WPtel: [phone] [id number] (15 min) Moderate 04/26/2017 Patient Education: [...] 10mg daily. 01/25/2017 Appointment: [facility] But[phone] (30 min) Complex 01/25/2017 Patient Education: [...] [place] 10/26/2016 Appointment: Les[facility] Butcher [facility]Ptel[phone] (15 min) Moderate 10/26/2016 Patient Education: Patient [...] occur. 09/27/2016 Appointment: Lesley Butcher WPtel: [phone] [id number] (15 min) Moderate 09/27/2016 Patient Education: [...] andrea 06/28/2016 Appointment: Les[facility] Butcher WPtel[phone] (15 min) Moderate 06/28/2016 Patient Education: Patient [...] eye drops-zaditor Ygjigargen-increase dexamethasone x 1 month 02/17/2016 Appointment: Merline Rose WPtel: [phone] (30 min) Complex 02/17/2016 Patient Education: Patient [...] Summary Completed 12/16/2015 Appointment: Lesley Butcher WPtel: [facility] (15 min) Moderate 12/04/2015 Appointment: Lesley Butcher WPtel: [facility] [place] (15 min) Moderate 12/02/2015 Visit Plan: [...] THE PHARMACY 07/30/2015 Appointment: Lesley Butcher WPtel: [facility] (15 min) Moderate 07/30/2015 Patient Education: [...] home. 04/29/2015 Appointment: Lesley Butcher WPtel: [phone] (15 min) Moderate 04/29/2015 Patient Education: [...] External, Ordering Provider Referral Appointment Requested Referral: [facility] 09/12 Referral info faxed Appointment Requested Referral: [facility] Referral Appointment Requested Instructions Comment . [...] planned injection in back and call the executive vp about a biopsy of the lesion on [...] -Dr Deleon -now on coumadin-will return to [place] in 2 weeks to discuss watchman device JAE-asboocmulk-ft changes Urinary frequency and urgency -check UA -[facility]will bring back sample . Hypertension - [...] aneurysm - defer to Dr. Valentine at [facility]. Take 1/2 tab of Citalopram daily [...] change in blood pressure readings at home. LILLY 180MG DAILY FOR ALLERGIES . Allergies - [...] ILLNESS. CHECK CARDIAC ENYZMES AND EKG . LAR-votcnsj-gjtuwtuls of breath -patient reports worsening of chronic symptoms -will check EKG and cardiac enzymes to evaluate for acute changes -recommend patient follow up with his social sciences lecturer, Dr Stokes -patient, and daughter verbalized understanding [...] recommended patient to have an evaluation at [facility] to see if he has potential [...] when he had previous blockages - 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 They have a potential appt pending. 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 They have a potential appt pending. I spent 45 minutes with the patient and his family in direct contact and discussion.
--- OUTSIDE RECORDS SUMMARY | 2019-05-25 02:10 | XMS REPORT | CCD ---
Author Author [facility] Organization [facility] Address [address] [place] [address] Phone Care Team Providers Care Cattery Operator Name Role Phone PP Unavailable CCM Unavailable Summary Purpose Interface Exchange Insurance Providers Payer name Policy type / Coverage type Covered green party ID Effective Begin Date Effective End Date WPS Medicare Part B Medicare Part B [id number] 2018 Unknown [facility] Medicare Part B [id number] 2018 Unknown Family history Father Diagnosis Age At Onset Hypertension Unknown Coronary Artery Disease Unknown Sister Diagnosis Age At Onset Heart disease Unknown Mother Diagnosis Age At Onset Coronary Artery Disease Unknown Hypertension Unknown Social History Social History Element Codes Description Effective Dates Marital status Unknown 02/19/2015 Number of children Unknown 2 02/19/2015 Employment Unknown Retired 02/19/[address]: 227486528 Has never smoked or chewed tobacco 02/19/2015 Alcohol history Unknown occasionally drinks alcohol 02/19/2015 Allergies, Adverse Reactions, Alerts Substance Reaction Codes Entered Date Inactivated Date Status bactrim RxNorm: 123945 12/19/2015 No Inactive Date Active ciprofloxacin RxNorm: 51031 02/18/2015 No Inactive Date Active IV DYE, [...] Fill Instructions atorvastatin 80 mg tablet RxNorm: 017461 1 Tablet(s) PO daily 04/23/2019 No Stop Date Active Vitamin D3 1,000 unit capsule RxNorm: 938600 1 Capsule(s) PO daily 04/23/2019 No Stop Date Active nitroglycerin 0.4 mg sublingual tablet RxNorm: 757349 1 Tablet(s) SL x3 in 15 min as needed 03/05/2019 No Stop Date Active losartan 50 mg tablet RxNorm: 020705 1 Tablet(s) PO daily 02/16/2019 02/10/2020 Active Requip 0.25 mg tablet RxNorm: 468977 1 Tablet(s) PO QHS 01/29/2019 01/23/2020 Active Flomax 0.4 mg capsule RxNorm: 521461 TAKE 1 CAPSULE BY MOUTH ONCE DAILY IN THE EVENING 01/25/2019 No Stop Date Active Requip 0.25 mg tablet RxNorm: 363074 1 Tablet(s) PO QHS 2019 01/28/2019 Inactive pantoprazole 40 mg tablet,delayed release RxNorm: 668825 TAKE ONE TABLET BY MOUTH ONCE DAILY AT BEDTIME 11/27/2018 No Stop Date Active atorvastatin 40 mg tablet RxNorm: 704291 1 Tablet(s) PO daily 09/26/2018 10/25/2018 Inactive dexamethasone 0.5 mg tablet RxNorm: 246214 TAKE 1 TABLET BY MOUTH ONCE DAILY 08/29/2018 04/22/2019 Inactive clonazepam 1 mg tablet RxNorm: 829713 1/2 Tablet(s) PO QHS 08/24/2018 04/22/2019 Inactive allopurinol 100 mg tablet RxNorm: 375771 TAKE ONE TABLET BY MOUTH ONCE DAILY 08/03/2018 No Stop Date Active citalopram 40 mg tablet RxNorm: 128841 TAKE ONE TABLET BY MOUTH ONCE DAILY 06/13/2018 No Stop Date Active Kenalog 40 mg/mL suspension for injection RxNorm: 2230898 Milliliter(s) Inj 06/12/2018 06/12/2018 Inactive clonazepam 1 mg tablet RxNorm: 008457 1 Tablet(s) PO QHS 06/12/2018 08/23/2018 Inactive clonazepam 1 mg tablet RxNorm: 760519 1/2 Tablet(s) TAKE ONE TABLET BY MOUTH ONCE DAILY AT BEDTIME AND ONE TABLET THREE TIMES DAILY NEEDED 05/24/2018 06/11/2018 Inactive citalopram 40 mg tablet RxNorm: 871669 1/2 Tablet(s) TAKE ONE TABLET BY MOUTH ONCE DAILY 05/24/2018 09/25/2018 Inactive losartan 50 mg tablet RxNorm: 463935 1/2 Tablet(s) PO daily 05/24/2018 02/15/2019 Inactive spironolactone 25 mg tablet RxNorm: 269639 TAKE ONE TABLET BY MOUTH ONCE DAILY 05/22/2018 No Stop Date Active dexamethasone 0.5 mg tablet RxNorm: 604140 TAKE ONE TABLET BY MOUTH ONCE DAILY 02/21/2018 08/28/2018 Inactive Flomax 0.4 mg capsule RxNorm: 368725 TAKE ONE CAPSULE BY MOUTH ONCE DAILY IN THE EVENING 12/19/2017 01/24/2019 Inactive Tamiflu 75 mg capsule RxNorm: 222006 1 Capsule(s) PO BID 12/08/2017 12/12/2017 Inactive clonazepam 1 mg tablet RxNorm: 325414 Tablet(s) TAKE ONE TABLET BY MOUTH ONCE DAILY AT BEDTIME AND ONE TABLET THREE TIMES DAILY NEEDED 11/28/2017 01/26/2018 Inactive pantoprazole 40 mg tablet,delayed release RxNorm: 375620 TAKE ONE TABLET BY MOUTH ONCE DAILY AT BEDTIME 11/07/2017 11/26/2018 Inactive allopurinol 100 mg tablet RxNorm: 222833 TAKE ONE TABLET BY MOUTH ONCE DAILY 10/03/2017 08/02/2018 Inactive pantoprazole 40 mg tablet,delayed release RxNorm: 506782 1 Tablet(s) PO BID 09/01/2017 05/28/2018 Inactive Vitamin B-6 100 mg tablet RxNorm: 367450 1 Tablet(s) PO daily 09/01/2017 06/11/2018 Inactive dutasteride 0.5 mg capsule RxNorm: 526284 1 Capsule(s) PO QPM 09/01/2017 06/11/2018 Inactive spironolactone 25 mg tablet RxNorm: 968084 TAKE ONE TABLET BY MOUTH ONCE DAILY 08/15/2017 05/21/2018 Inactive citalopram 40 mg tablet RxNorm: 887824 TAKE ONE TABLET BY MOUTH ONCE DAILY 08/08/2017 05/04/2018 Inactive dexamethasone 0.5 mg tablet RxNorm: 764527 TAKE ONE TABLET BY MOUTH ONCE DAILY 08/08/2017 11/05/2017 Inactive clonazepam 1 mg tablet RxNorm: 675113 1 Tablet(s) PO QHS AND 1 TAB PO TID PRN 05/12/2017 05/13/2017 Inactive clonazepam 1 mg tablet RxNorm: 563730 TAKE ONE TABLET BY MOUTH ONCE DAILY AT BEDTIME AND ONE THREE TIMES DAILY NEEDED 05/12/2017 04/22/2019 Inactive oxybutynin chloride ER 10 mg tablet,extended release 24 hr RxNorm: 469886 1 Tablet(s) PO daily 04/29/2017 08/02/2017 Inactive dexamethasone 0.5 mg tablet RxNorm: 822789 TAKE ONE TABLET BY MOUTH ONCE DAILY 02/14/2017 04/14/2017 Inactive Flomax 0.4 mg capsule RxNorm: 869019 TAKE ONE CAPSULE BY MOUTH ONCE DAILY IN THE EVENING 02/14/2017 11/10/2017 Inactive pantoprazole 40 mg tablet,delayed release RxNorm: 553583 TAKE ONE TABLET BY MOUTH ONCE DAILY AT BEDTIME 02/14/2017 08/31/2017 Inactive oxybutynin chloride ER 10 mg tablet,extended release 24 hr RxNorm: 090845 1 Tablet(s) PO daily 01/25/2017 04/24/2017 Inactive dexamethasone 0.5 mg tablet RxNorm: 240528 TAKE ONE TABLET BY MOUTH ONCE DAILY 11/10/2016 12/09/2016 Inactive oxybutynin chloride ER 5 mg tablet,extended release 24 hr RxNorm: 605536 1 Tablet(s) PO daily 10/28/2016 10/27/2016 Inactive oxybutynin chloride ER 5 mg tablet,extended release 24 hr RxNorm: 231075 1 Tablet(s) PO daily 10/28/2016 01/24/2017 Inactive Detrol LA 2 mg capsule,extended release RxNorm: 049215 1 Capsule(s) PO QPM 10/26/2016 10/27/2016 Inactive clonazepam 1 mg tablet RxNorm: 543039 1 Tablet(s) PO QHS AND 1 TAB PO TID PRN 10/20/2016 04/17/2017 Inactive dexamethasone 0.5 mg tablet RxNorm: 968834 TAKE ONE TABLET BY MOUTH ONCE DAILY 10/06/2016 11/04/2016 Inactive allopurinol 100 mg tablet RxNorm: 522584 1 Tablet(s) PO daily 09/30/2016 09/24/2017 Inactive Vesicare 5 mg tablet RxNorm: 702414 1 Tablet(s) PO QPM 09/27/2016 12/12/2016 Inactive spironolactone 25 mg tablet RxNorm: 399958 1 Tablet(s) PO daily 08/06/2016 07/31/2017 Inactive citalopram 40 mg tablet RxNorm: 710393 1 Tablet(s) PO daily 06/28/2016 06/22/2017 Inactive iron ER 159 mg (45 mg iron) tablet,extended release RxNorm: 117408 1 Tablet(s) PO daily 04/27/2016 08/31/2017 Inactive dexamethasone 0.5 mg tablet RxNorm: 879001 1/2 Tablet(s) PO daily 04/27/2016 02/20/2018 Inactive allopurinol 100 mg tablet RxNorm: 693268 1 Tablet(s) PO daily 04/27/2016 09/29/2016 Inactive Plavix 75 mg tablet RxNorm: 296885 1 Tablet(s) PO daily 04/27/2016 02/11/2019 Inactive clonazepam 1 mg tablet RxNorm: 722137 1 Tablet(s) PO QHS and 1 tab po TID prn 04/14/2016 10/07/2016 Inactive allopurinol 100 mg tablet RxNorm: 482855 1 Tablet(s) PO daily 02/17/2016 04/26/2016 Inactive citalopram 20 mg tablet RxNorm: 812954 1 Tablet(s) PO daily 01/20/2016 06/27/2016 Inactive Flomax 0.4 mg capsule RxNorm: 833937 1 Capsule(s) PO QPM 01/20/2016 01/13/2017 Inactive [SAVINGS FOR NON-COVERED DRUGS -- BIN:[id number], PCN: ASPROD1, Group: XXXXX, ID# [id number], Questions: . THIS IS NOT INSURANCE.] pantoprazole 40 mg tablet,delayed release RxNorm: 699779 1 Tablet(s) PO QHS 01/20/2016 01/13/2017 Inactive Colcrys 0.6 mg tablet RxNorm: 694510 1 Tablet(s) PO daily 01/06/2016 03/05/2016 Inactive take daily x 7 days then daily as needed for gout flair colchicine 0.6 mg tablet RxNorm: 631114 1 Tablet(s) PO BID 12/30/2015 01/01/2016 Inactive doxycycline hyclate 100 mg tablet RxNorm: 280947 1 Tablet(s) PO BID 12/19/2015 12/28/2015 Inactive doxycycline hyclate 100 mg tablet RxNorm: 755805 1 Tablet(s) PO BID 12/19/2015 12/18/2015 Inactive allopurinol 100 mg tablet RxNorm: 978388 1 Tablet(s) PO daily 12/16/2015 02/16/2016 Inactive colchicine 0.6 mg tablet RxNorm: 318562 Tablet(s) PO 1.2 mg PO in the morning and 0.6 mg at night for 2 days. 12/16/2015 12/29/2015 Inactive allopurinol 100 mg tablet RxNorm: 656122 1 Tablet(s) PO daily 12/16/2015 12/15/2015 Inactive Protonix 40 mg tablet,delayed release RxNorm: 678013 1 Tablet(s) PO daily 12/16/2015 01/14/2016 Inactive Bactrim DS 800 mg-160 mg tablet RxNorm: 739069 1 Tablet(s) PO BID 12/16/2015 12/18/2015 Inactive colchicine 0.6 mg tablet RxNorm: 727362 Tablet(s) PO 1.2 mg for the first dose and 0.6 mg an hour after 12/15/2015 12/15/2015 Inactive dexamethasone 0.5 mg tablet RxNorm: 237738 1 Tablet(s) PO 12/12/2015 02/09/2016 Inactive Plavix 75 mg tablet RxNorm: 810869 1 Tablet(s) PO every other day 12/12/2015 04/09/2016 Inactive nitroglycerin 0.4 mg sublingual tablet RxNorm: 244444 1 Tablet(s) SL x3 in 15 min as needed 12/12/2015 04/26/2016 Inactive [place] 5 mg-325 mg tablet RxNorm: 302405 1-2 Tablet(s) PO Q6 as needed 12/11/2015 09/26/2016 Inactive clonazepam 1 mg tablet RxNorm: 795977 1 Tablet(s) PO QHS and 1 tab po TID prn 12/11/2015 04/22/2019 Inactive clonazepam 1 mg tablet RxNorm: 656777 1 Tablet(s) PO QHS and 1 tab po TID prn 12/04/2015 12/10/2015 Inactive Flomax 0.4 mg capsule RxNorm: 529068 1 Capsule(s) PO QPM 09/22/2015 01/19/2016 Inactive [SAVINGS FOR NON-COVERED DRUGS -- BIN:[id number], PCN: ASPROD1, Group: XXXXX, ID# XXXXXXX, Questions: . THIS IS NOT INSURANCE.] Flomax 0.4 mg capsule RxNorm: 100083 1 Capsule(s) PO QPM 09/16/2015 09/21/2015 Inactive [SAVINGS FOR NON-COVERED DRUGS -- BIN:[id number], PCN: ASPROD1, Group: XXXXX, ID# XXXXXXX, Questions: . THIS IS NOT INSURANCE.] clonazepam 1 mg tablet RxNorm: 926638 1 Tablet(s) PO QHS 08/29/2015 12/03/2015 Inactive coenzyme Q10 10 mg tablet RxNorm: 413757 1 Tablet(s) PO daily 07/30/2015 01/05/2016 Inactive spironolactone 25 mg tablet RxNorm: 168025 1 Tablet(s) PO daily 07/28/2015 07/21/2016 Inactive spironolactone 25 mg tablet RxNorm: 242942 1 Tablet(s) PO daily 07/22/2015 07/27/2015 Inactive clonazepam 1 mg tablet RxNorm: 598474 1 Tablet(s) PO QHS 05/23/2015 08/28/2015 Inactive losartan 25 mg tablet RxNorm: 275381 1 Tablet(s) PO daily 02/19/2015 03/20/2015 Inactive Flonase Allergy Relief 50 mcg/actuation nasal spray,suspension RxNorm: 1 Amorita NASAL BID 02/19/2015 04/26/2016 Inactive [SAVINGS FOR NON-COVERED DRUGS -- BIN:[id number], PCN: ASPROD1, Group: XXXXX, ID# [id number], Questions: . THIS IS NOT INSURANCE.] Flomax 0.4 mg capsule RxNorm: 893689 1 Capsule(s) PO QPM 02/19/2015 09/15/2015 Inactive [SAVINGS FOR NON-COVERED DRUGS -- BIN:231152, PCN: ASPROD1, Group: XXXXX, ID# XXXXXXX, Questions: . THIS IS NOT INSURANCE.] citalopram 20 mg tablet RxNorm: 878316 1 Tablet(s) PO daily 02/19/2015 03/20/2015 Inactive atenolol 25 mg tablet RxNorm: 891485 1 Tablet(s) PO daily 02/19/2015 03/20/2015 Inactive Lipitor 20 mg tablet RxNorm: 142054 1 Tablet(s) PO daily 02/19/2015 03/20/2015 Inactive Flonase Allergy Relief 50 mcg/actuation nasal spray,suspension RxNorm: 9285582 1 Amorita NASAL QHS No Start Date Active amiodarone 200 mg tablet RxNorm: 922072 1 Tablet(s) PO TID No Start Date Active Vitamin D3 5,000 unit tablet RxNorm: 319369 1 Tablet(s) PO daily No Start Date Active warfarin 3 mg tablet RxNorm: 878725 1 Tablet(s) PO daily No Start Date Active managed by tare weigher Dr Pancho Valenciagra 180 mg tablet RxNorm: 558403 1 Tablet(s) PO daily No Start Date Active Centrum Complete oral RxNorm: 12075 oral No Start Date Active aspirin 325 mg tablet RxNorm: 776432 1 Tablet(s) PO daily No Start Date Active glucosamine HCl 1,500 mg tablet RxNorm: 867268 1 Tablet(s) with 1200 mg chrondroitin PO daily No Start Date 08/01/2018 Inactive vitamin B complex oral RxNorm: 66333 oral No Start Date 04/22/2019 Inactive Claritin-D 24 Hour oral RxNorm: 159298 oral No Start Date 01/07/2019 Inactive ranitidine 150 mg tablet RxNorm: 627507 1 Tablet(s) PO TID No Start Date 12/11/2015 Inactive Rachel oral RxNorm: 132953 oral No Start Date 04/23/2019 Inactive Lipitor oral RxNorm: 19361 oral No Start Date 04/23/2019 Inactive [place] 5 mg-325 mg tablet RxNorm: 687427 1-2 Tablet(s) PO Q6 as needed No Start Date 12/10/2015 Inactive krill oil oral RxNorm: 64505 oral No Start Date 08/07/2018 Inactive Vitamin B-6 100 mg tablet RxNorm: 905408 1 Tablet(s) PO TID No Start Date 08/31/2017 Inactive spironolactone 25 mg tablet RxNorm: 136712 1 Tablet(s) PO daily No Start Date 07/21/2015 Inactive Vitamin D3 oral RxNorm: 2418 oral No Start Date 02/17/2016 Inactive clonazepam 1 mg tablet RxNorm: 415316 1 Tablet(s) PO daily No Start Date 05/22/2015 Inactive Glucosamine oral RxNorm: 4845 oral No Start Date 04/26/2016 Inactive cetirizine 10 mg tablet RxNorm: 7939959 1 Tablet(s) PO daily No Start Date 01/07/2019 Inactive losartan 50 mg tablet RxNorm: 122702 1 Tablet(s) PO daily No Start Date 05/23/2018 Inactive Plavix 75 mg tablet RxNorm: 437402 1 Tablet(s) PO every other day No Start Date 12/11/2015 Inactive Osteo Bi-Flex oral RxNorm: 3764433 oral No Start Date 09/01/2017 Inactive iron ER 159 mg (45 mg iron) tablet,extended release RxNorm: 928754 1 Tablet(s) PO BID No Start Date 04/26/2016 Inactive amlodipine 5 mg tablet RxNorm: 323396 1 Tablet(s) PO daily No Start Date 01/05/2016 Inactive aspirin 81 mg tablet,delayed release RxNorm: 513994 1 Tablet(s) PO daily No Start Date 05/09/2018 Inactive aspirin 81 mg capsule,delayed release RxNorm: 854415 1 Capsule(s) PO daily No Start Date 04/22/2019 Inactive dexamethasone 0.5 mg tablet RxNorm: 327118 1 Tablet(s) PO No Start Date 12/11/2015 Inactive Vitamin B-12 1,000 mcg tablet RxNorm: 598109 6 Tablet(s) PO every other day No Start Date 06/11/2018 Inactive Aleve 220 mg tablet RxNorm: 175661 Tablet(s) PO as needed No Start Date 04/22/2019 Inactive Vitamin D3 1,000 unit capsule RxNorm: 747744 2 Capsule(s) PO daily No Start Date 04/22/2019 Inactive colchicine 0.6 mg tablet RxNorm: 907130 Tablet(s) PO 1.2 mg for the first dose and 0.6 mg an hour after No Start Date 12/14/2015 Inactive nitroglycerin 0.4 mg sublingual tablet RxNorm: 891356 1 Tablet(s) SL x3 in 15 min as needed No Start Date 12/11/2015 Inactive Fish Oil 1,000 mg capsule RxNorm: 1 Capsule(s) PO daily No Start Date 04/26/2016 Inactive Ecotrin Low Strength 81 mg tablet,enteric coated RxNorm: 9495979 1 Tablet(s) PO daily No Start Date 09/27/2016 Inactive Carafate 1 gram tablet RxNorm: 915558 1 Tablet(s) PO every other day No Start Date 04/22/2019 Inactive Medication Administered Medication Codes Instructions Start Date Status Kenalog 40 mg/mL suspension for injection RxNorm: 6900846 Milliliter 06/12/2018 No longer Active Immunizations Vaccine [...] 30.4 pg 10/20/2018 Cbc With Differential Ord2 Saunders% 5.7 % 10/20/2018 Cbc With Differential Ord2 [...] 1.69 K/ul 10/20/2018 Cbc With Differential Ord2 Saunders ABS# 0.6 K/ul 10/20/2018 Cbc With Differential Ord2 Eos ABS# 0.0 K/ul 10/20/2018 Cbc With Differential Ord2 Baso ABS# 0.0 K/ul 10/20/2018 Comp Metabolic Weq598 NA 140 mEq/L 10/20/2018 Comp Metabolic Bsh542 K 4.0 mEq/L 10/20/2018 Comp Metabolic Fqo883 CL 104 mEq/L 10/20/2018 Comp Metabolic Sol747 CO2 28.0 mEq/L 10/20/2018 Comp Metabolic Ymk712 ANION GAP 12 10/20/2018 Comp Metabolic Ivh616 GLUCOSE 113 mg/dL 10/20/2018 Comp Metabolic Rxk189 Creat 1.0 mg/dL 10/20/2018 Comp Metabolic Imq107 eGFR 75 ml/min/1.73m2 10/20/2018 Comp Metabolic Cat865 BUN 18 mg/dL 10/20/2018 Comp Metabolic Mcv301 B/C Ratio 17.8 Ratio 10/20/2018 Comp Metabolic Ulx724 CALCIUM 9.8 mg/dL 10/20/2018 Comp Metabolic Fgj313 ALK PHOS 70 U/L 10/20/2018 Comp Metabolic Bjq102 AST(SGOT) 15 U/L 10/20/2018 Comp Metabolic Ese969 ALT(SGPT) 18 U/L 10/20/2018 Comp Metabolic Clv642 BILI T 1.1 mg/dL 10/20/2018 Comp Metabolic Unk660 ALBUMIN 4.4 g/dL 10/20/2018 Comp Metabolic Wwn104 TPRO 6.9 g/dL 10/20/2018 Comp Metabolic Bui126 GLOB 2.5 g/dL 10/20/2018 Comp Metabolic Ycv437 A/G Ratio 1.7 Ratio 10/20/2018 Comp Metabolic Ufp092 Osmo 282 mOsmo 10/20/2018 Urinalysis Ord28 U-Color [...] 29.0 pg 07/14/2018 Cbc With Differential Ord2 Saunders% 7.5 % 07/14/2018 Cbc With Differential Ord2 [...] 1.92 K/ul 07/14/2018 Cbc With Differential Ord2 Saunders ABS# 0.4 K/ul 07/14/2018 Cbc With Differential Ord2 Eos ABS# 0.2 K/ul 07/14/2018 Cbc With Differential Ord2 Baso ABS# 0.0 K/ul 07/14/2018 Renal Xnm382 NA 140 mEq/L 07/14/2018 Renal Gbf389 K 4.2 mEq/L 07/14/2018 Renal Qhk395 CL 103 mEq/L 07/14/2018 Renal Dfb169 CO2 29.0 mEq/L 07/14/2018 Renal Zlh818 ANION GAP 12 07/14/2018 Renal Won164 Osmo 280 mOsmo 07/14/2018 Renal Ckp495 GLUCOSE 95 mg/dL 07/14/2018 Renal Ygn412 BUN 15 mg/dL 07/14/2018 Renal Pmw840 Creat 1.2 mg/dL 07/14/2018 Renal Mup915 eGFR 64 ml/min/1.73m2 07/14/2018 Renal Mwe196 B/C Ratio 12.8 Ratio 07/14/2018 Renal Qqv596 CALCIUM 9.6 mg/dL 07/14/2018 Renal Quz410 PHOS 3.2 mg/dL 07/14/2018 Renal Ndp854 ALBUMIN 4.4 g/dL 07/14/2018 Magnesium Ord90 Mag [...] 29.7 pg 06/08/2018 Cbc With Differential Ord2 Saunders% 8.7 % 06/08/2018 Cbc With Differential Ord2 [...] 2.14 K/ul 06/08/2018 Cbc With Differential Ord2 Saunders ABS# 0.5 K/ul 06/08/2018 Cbc With Differential Ord2 Eos ABS# 0.2 K/ul 06/08/2018 Cbc With Differential Ord2 Baso ABS# 0.0 K/ul 06/08/2018 Comp Metabolic Oou098 NA 139 mEq/L 06/08/2018 Comp Metabolic Jit143 K 4.6 mEq/L 06/08/2018 Comp Metabolic Tnj372 CL 105 mEq/L 06/08/2018 Comp Metabolic Pbe871 CO2 26.0 mEq/L 06/08/2018 Comp Metabolic Lql057 ANION GAP 13 06/08/2018 Comp Metabolic War608 GLUCOSE 95 mg/dL 06/08/2018 Comp Metabolic Hin759 Creat 1.2 mg/dL 06/08/2018 Comp Metabolic Isb089 eGFR 59 ml/min/1.73m2 06/08/2018 Comp Metabolic Jmc425 BUN 12 mg/dL 06/08/2018 Comp Metabolic Erf826 B/C Ratio 9.7 Ratio 06/08/2018 Comp Metabolic Gbj730 CALCIUM 9.9 mg/dL 06/08/2018 Comp Metabolic Rsc901 ALK PHOS 70 U/L 06/08/2018 Comp Metabolic Lpj773 AST(SGOT) 21 U/L 06/08/2018 Comp Metabolic Fwd835 ALT(SGPT) 20 U/L 06/08/2018 Comp Metabolic Thh687 BILI T 1.0 mg/dL 06/08/2018 Comp Metabolic Flt666 ALBUMIN 4.5 g/dL 06/08/2018 Comp Metabolic Lev539 TPRO 7.2 g/dL 06/08/2018 Comp Metabolic Dtq141 GLOB 2.8 g/dL 06/08/2018 Comp Metabolic Pcu307 A/G Ratio 1.6 Ratio 06/08/2018 Comp Metabolic Rgh554 Osmo 277 mOsmo 06/08/2018 Cbc With Differential [...] 30.6 pg 05/10/2018 Cbc With Differential Ord2 Saunders% 6.5 % 05/10/2018 Cbc With Differential Ord2 [...] 1.94 K/ul 05/10/2018 Cbc With Differential Ord2 Saunders ABS# 0.4 K/ul 05/10/2018 Cbc With Differential [...] Ord30 C/HDL 4.2 Ratio 01/26/2018 Comp Metabolic Ags308 NA 138 mEq/L 01/26/2018 Comp Metabolic Jeg426 K 4.2 mEq/L 01/26/2018 Comp Metabolic Zih916 CL 105 mEq/L 01/26/2018 Comp Metabolic Rrk312 CO2 23.0 mEq/L 01/26/2018 Comp Metabolic Kdh450 ANION GAP 14 01/26/2018 Comp Metabolic Jab620 GLUCOSE 89 mg/dL 01/26/2018 Comp Metabolic Vpf167 Creat 1.1 mg/dL 01/26/2018 Comp Metabolic Ieo727 eGFR 70 ml/min/1.73m2 01/26/2018 Comp Metabolic Rkt506 BUN 18 mg/dL 01/26/2018 Comp Metabolic Gtu136 B/C Ratio 16.8 Ratio 01/26/2018 Comp Metabolic Yqp626 CALCIUM 9.2 mg/dL 01/26/2018 Comp Metabolic Gkh716 ALK PHOS 67 U/L 01/26/2018 Comp Metabolic Spo615 AST(SGOT) 31 U/L 01/26/2018 Comp Metabolic Zos571 ALT(SGPT) 23 U/L 01/26/2018 Comp Metabolic Bmh873 BILI T 1.7 mg/dL 01/26/2018 Comp Metabolic Rij544 ALBUMIN 3.9 g/dL 01/26/2018 Comp Metabolic Awg262 TPRO 6.7 g/dL 01/26/2018 Comp Metabolic Sft111 GLOB 2.8 g/dL 01/26/2018 Comp Metabolic Pqa597 A/G Ratio 1.4 Ratio 01/26/2018 Comp Metabolic Pjf666 Osmo 277 mOsmo 01/26/2018 Cbc With Differential [...] 30.7 pg 01/26/2018 Cbc With Differential Ord2 Saunders% 7.1 % 01/26/2018 Cbc With Differential Ord2 [...] 2.40 K/ul 01/26/2018 Cbc With Differential Ord2 Saunders ABS# 0.5 K/ul 01/26/2018 Cbc With Differential Ord2 Eos ABS# 0.2 K/ul 01/26/2018 Cbc With Differential Ord2 Baso ABS# 0.0 K/ul 01/26/2018 Tsh Ord6 TSH (3rd IS) 1.81 uIU/mL 01/26/2018 Testosterone Ugf613 Testo 370.3 ng/dL 01/26/2018 C A/B FLU [id number] Influenza A Scr Negative 12/08/2017 C A/B FLU [id number] Influenza B Scr Negative 12/08/2017 C A/B FLU [id number] Influenza Intrp B AG:PRID:PT:NOSE:NOM:IF See Footnote 12/08/2017 [...] 30.8 pg 04/11/2017 Cbc With Differential Ord2 Saunders% 8.1 % 04/11/2017 Cbc With Differential Ord2 [...] 1.91 K/ul 04/11/2017 Cbc With Differential Ord2 Saunders ABS# 0.5 K/ul 04/11/2017 Cbc With Differential Ord2 Eos ABS# 0.2 K/ul 04/11/2017 Cbc With Differential Ord2 Baso ABS# 0.0 K/ul 04/11/2017 Comp Metabolic Tlv589 NA 140 mEq/L 04/11/2017 Comp Metabolic Rje616 K 4.1 mEq/L 04/11/2017 Comp Metabolic Kwh958 CL 105 mEq/L 04/11/2017 Comp Metabolic Zaz795 CO2 26.0 mEq/L 04/11/2017 Comp Metabolic Pzv753 ANION GAP 13 04/11/2017 Comp Metabolic Wpf707 GLUCOSE 88 mg/dL 04/11/2017 Comp Metabolic Kwe704 Creat 1.1 mg/dL 04/11/2017 Comp Metabolic Upg476 eGFR 66 ml/min/1.73m2 04/11/2017 Comp Metabolic Kzu865 BUN 18 mg/dL 04/11/2017 Comp Metabolic Kji050 B/C Ratio 15.9 Ratio 04/11/2017 Comp Metabolic Ivy462 CALCIUM 9.0 mg/dL 04/11/2017 Comp Metabolic Zue052 ALK PHOS 72 U/L 04/11/2017 Comp Metabolic Mtm178 AST(SGOT) 22 U/L 04/11/2017 Comp Metabolic Uyk371 ALT(SGPT) 26 U/L 04/11/2017 Comp Metabolic Zlv098 BILI T 1.0 mg/dL 04/11/2017 Comp Metabolic Ank173 ALBUMIN 4.0 g/dL 04/11/2017 Comp Metabolic Ykm464 TPRO 6.4 g/dL 04/11/2017 Comp Metabolic Jmy061 GLOB 2.4 g/dL 04/11/2017 Comp Metabolic Htu175 A/G Ratio 1.6 Ratio 04/11/2017 Comp Metabolic Pbb990 Osmo 281 mOsmo 04/11/2017 Vitamin D 25 Oh Fal4966 VITAMIN D, 25 HYDROXY 65.52 ng/mL 05/19/2016 [...] 28.5 pg 05/18/2016 Cbc With Differential Ord2 Saunders% 7.2 % 05/18/2016 Cbc With Differential Ord2 [...] 1.80 K/ul 05/18/2016 Cbc With Differential Ord2 Saunders ABS# 0.4 K/ul 05/18/2016 Cbc With Differential Ord2 Eos ABS# 0.2 K/ul 05/18/2016 Cbc With Differential Ord2 Baso ABS# 0.0 K/ul 05/18/2016 Magnesium Ord90 Mag 2.0 mg/dL 05/18/2016 Renal Ivl927 NA 139 mEq/L 05/18/2016 Renal Roq578 K 4.0 mEq/L 05/18/2016 Renal Oqu823 CL 104 mEq/L 05/18/2016 Renal Gbc683 CO2 27.0 mEq/L 05/18/2016 Renal Pjq978 ANION GAP 12 05/18/2016 Renal Ofb173 Osmo 279 mOsmo 05/18/2016 Renal Nvh699 GLUCOSE 91 mg/dL 05/18/2016 Renal Iaf468 BUN 18 mg/dL 05/18/2016 Renal Qbo005 Creat 1.3 mg/dL 05/18/2016 Renal Yxz226 eGFR 59 ml/min/1.73m2 05/18/2016 Renal Yhg216 B/C Ratio 14.3 Ratio 05/18/2016 Renal Uak899 CALCIUM 9.3 mg/dL 05/18/2016 Renal Nym852 PHOS 3.2 mg/dL 05/18/2016 Renal Efb700 ALBUMIN 4.2 g/dL 05/18/2016 Random Urine Protein/Creatinine Ratio Fln6774 U Prot 15.0 mg/dl 05/18/2016 Random Urine Protein/Creatinine Ratio Nnf0471 U CREAT 141.0 mg/dL 05/18/2016 Random Urine Protein/Creatinine Ratio Bkp0930 R MTP/Creat Ratio 0.11 05/18/2016 Urinalysis Ord28 [...] 28.5 pg 02/19/2016 Cbc With Differential Ord2 Saunders% 9.5 % 02/19/2016 Cbc With Differential Ord2 [...] 1.91 K/ul 02/19/2016 Cbc With Differential Ord2 Saunders ABS# 0.5 K/ul 02/19/2016 Cbc With Differential Ord2 Eos ABS# 0.2 K/ul 02/19/2016 Cbc With Differential Ord2 Baso ABS# 0.0 K/ul 02/19/2016 Cbc With Differential Ord2 New Analyzer Notice Please note new ref ranges starting 10-29-2015 due to implemntation of new five part differential hematolgy analyzer. 02/19/2016 Tsh Ord6 hTSH II 2.10 uIU/mL 02/19/2016 Comp Metabolic Ran915 NA 138 mEq/L 02/19/2016 Comp Metabolic Jbu354 K 3.8 mEq/L 02/19/2016 Comp Metabolic Qhz148 CL 103 mEq/L 02/19/2016 Comp Metabolic Uys034 CO2 28.0 mEq/L 02/19/2016 Comp Metabolic Czm486 ANION GAP 11 02/19/2016 Comp Metabolic Hrc179 GLUCOSE 94 mg/dL 02/19/2016 Comp Metabolic Fpf406 Creat 1.0 mg/dL 02/19/2016 Comp Metabolic Ted155 eGFR 75 ml/min/1.73m2 02/19/2016 Comp Metabolic Iit027 BUN 18 mg/dL 02/19/2016 Comp Metabolic Lyt164 B/C Ratio 17.6 Ratio 02/19/2016 Comp Metabolic Qki870 CALCIUM 9.6 mg/dL 02/19/2016 Comp Metabolic Asc787 ALK PHOS 93 U/L 02/19/2016 Comp Metabolic Wqf476 AST(SGOT) 23 U/L 02/19/2016 Comp Metabolic Thx544 ALT(SGPT) 19 U/L 02/19/2016 Comp Metabolic Ahs502 BILI T 0.8 mg/dL 02/19/2016 Comp Metabolic Vgl892 ALBUMIN 4.1 g/dL 02/19/2016 Comp Metabolic Ofi275 TPRO 6.8 g/dL 02/19/2016 Comp Metabolic Igj140 GLOB 2.7 g/dL 02/19/2016 Comp Metabolic Jet693 A/G Ratio 1.5 Ratio 02/19/2016 Comp Metabolic Gvq852 Osmo 277 mOsmo 02/19/2016 Uric Acid Ord77 Uric A 6.0 mg/dL 02/19/2016 Total Psa Ord10 PSA 0.82 ng/mL 02/19/2016 Comp Metabolic Oek801 NA 140 mEq/L 12/16/2015 Comp Metabolic Gef270 K 4.0 mEq/L 12/16/2015 Comp Metabolic Izn602 CL 105 mEq/L 12/16/2015 Comp Metabolic Jtr591 CO2 24.0 mEq/L 12/16/2015 Comp Metabolic Rnk864 ANION GAP 15 12/16/2015 Comp Metabolic Baz715 GLUCOSE 85 mg/dL 12/16/2015 Comp Metabolic Utp738 Creat 1.2 mg/dL 12/16/2015 Comp Metabolic Tcw541 eGFR 65 ml/min/1.73m2 12/16/2015 Comp Metabolic Gee617 BUN 14 mg/dL 12/16/2015 Comp Metabolic Mai970 B/C Ratio 12.1 Ratio 12/16/2015 Comp Metabolic Ayj448 CALCIUM 9.1 mg/dL 12/16/2015 Comp Metabolic Tje810 ALK PHOS 162 U/L 12/16/2015 Comp Metabolic Xuk964 AST(SGOT) 14 U/L 12/16/2015 Comp Metabolic Zlf885 ALT(SGPT) 17 U/L 12/16/2015 Comp Metabolic Lna548 BILI T 1.0 mg/dL 12/16/2015 Comp Metabolic Ahc679 ALBUMIN 3.4 g/dL 12/16/2015 Comp Metabolic Kes645 TPRO 6.2 g/dL 12/16/2015 Comp Metabolic Fnr421 GLOB 2.9 g/dL 12/16/2015 Comp Metabolic Oqc060 A/G Ratio 1.2 Ratio 12/16/2015 Comp Metabolic Eri658 Osmo 279 mOsmo 12/16/2015 Uric Acid Ord77 [...] 29.9 % 12/16/2015 Cbc With Differential Ord2 Saunders% 7.5 % 12/16/2015 Cbc With Differential Ord2 [...] 1.52 K/ul 12/16/2015 Cbc With Differential Ord2 Saunders ABS# 0.4 K/ul 12/16/2015 Cbc With Differential [...] C/HDL 4.0 Ratio 07/21/2015 Urine Protein 24Hr Hmv177 U Prot 5.1 mg/dl 05/16/2015 Urine Protein 24Hr Knb386 U Prot24 71.5 mg/24hr 05/16/2015 Total Volume Urine Ngq116 TV/24hr 1400 ml 05/16/2015 Total Psa Ord10 PSA 0.70 ng/mL 05/15/2015 Renal Agf946 NA 135 mEq/L 05/15/2015 Renal Bbv000 K 3.9 mEq/L 05/15/2015 Renal Mrc542 CL 101 mEq/L 05/15/2015 Renal Lev438 CO2 27.0 mEq/L 05/15/2015 Renal Hri380 ANION GAP 11 05/15/2015 Renal Wnh664 Osmo 274 mOsmo 05/15/2015 Renal Bqs800 GLUCOSE 132 mg/dL 05/15/2015 Renal Ncs544 BUN 19 mg/dL 05/15/2015 Renal Iji940 Creat 1.1 mg/dL 05/15/2015 Renal Rwd065 eGFR 67 ml/min/1.73m2 05/15/2015 Renal Qes051 B/C Ratio 17.0 Ratio 05/15/2015 Renal Glg543 CALCIUM 9.6 mg/dL 05/15/2015 Renal Eci474 PHOS 3.0 mg/dL 05/15/2015 Renal Vgg977 ALBUMIN 4.3 g/dL 05/15/2015 Cbc With Differential [...] Formatting Model/CDA Sections, Assigned to/Sharee Ramirez CPT-4: [id number] 07/05/2018 THER/PROPH/DIAG INJ SC/IM CPT-4: 91592 06/12/2018 TRIAMCINOLONE ACET INJ NOS CPT-4: J3301 06/12/2018 PPPS, SUBSEQ VISIT CPT- 4: G0439 08/03/2017 ADMIN INFLUENZA VIRUS VAC CPT-4: G0008 06/28/2016 FLU VACC PRSV FREE INC ANTIG CPT-4: 74811 06/28/2016 TENIVAC TD VACCINE NO PRSRV 7/> IM CPT-4: 17121 06/28/2016 OCCULT BLOOD FECES CPT- 4: 25493 02/19/2015 Vital Signs Date Vital 03/05/2019 Blood Pressure 1: 128/76 Code: 8480-6 BMI: 28.5 Code: 09446-5 Heart Rate 1: 85 bpm Height: 6' SpO2: 96% Weight: 210 lbs 02/12/2019 Blood Pressure 1: 110/70 Code: 8480-6 BMI: 28.5 Code: 59034-4 Heart Rate 1: 70 bpm Height: 6' SpO2: 93% Weight: 210 lbs 01/29/2019 Blood Pressure 1: 110/78 Code: 8480-6 BMI: 28.5 Code: 13653-2 Heart Rate 1: 98 bpm Height: 6' SpO2: 90% Weight: 210 lbs 2019 Blood Pressure 1: 136/74 Code: 8480-6 BMI: 28.6 Code: 24693-8 Heart Rate 1: 97 bpm Height: 6' SpO2: 94% Weight: 211 lbs 01/08/2019 Blood Pressure 1: 128/86 Code: 8480-6 BMI: 28.6 Code: 84732-4 Heart Rate 1: 96 bpm Height: 6' SpO2: 97% Weight: 211 lbs 12/25/2018 Blood Pressure 1: 112/62 Code: 8480-6 BMI: 28.6 Code: 68163-9 Heart Rate 1: 76 bpm Height: 6' SpO2: 96% Weight: 211 lbs 12/13/2018 Blood Pressure 1: 114/78 Code: 8480-6 BMI: 29.4 Code: 06666-8 Heart Rate 1: 73 bpm Height: 6' SpO2: 93% Weight: 217 lbs 11/27/2018 Blood Pressure 1: 110/70 Code: 8480-6 BMI: 28.5 Code: 13143-7 Heart Rate 1: 90 bpm Height: 6' SpO2: 95% Temperature: 36.8 (C) / 98.2 (F) Weight: 210 lbs 8 oz 09/26/2018 Blood Pressure 1: 130/80 Code: 8480-6 BMI: 29.6 Code: 17992-4 Heart Rate 1: 98 bpm Height: 6' SpO2: 93% Weight: 218 lbs 08/10/2018 BMI: 29.4 Code: 11158-5 Height: 6' Weight: 217 lbs 07/26/2018 Blood Pressure 1: 116/72 Code: 8480-6 BMI: 29.4 Code: 19014-5 Heart Rate 1: 102 bpm Height: 6' SpO2: 96% Weight: 217 lbs 07/05/2018 Blood Pressure 1: 132/72 Code: 8480-6 Heart Rate 1: 60 bpm SpO2: 95% 06/12/2018 Blood Pressure 1: 120/78 Code: 8480-6 BMI: 29.6 Code: 51102-3 Heart Rate 1: 103 bpm Height: 6' SpO2: 96% Weight: 218 lbs 05/10/2018 Blood Pressure 1: 114/68 Code: 8480-6 BMI: 29.4 Code: 00410-4 Heart Rate 1: 92 bpm Height: 6' SpO2: 97% Weight: 217 lbs 03/27/2018 Blood Pressure 1: 126/74 Code: 8480-6 BMI: 30.1 Code: 52951-9 Heart Rate 1: 103 bpm Height: 6' SpO2: 96% Weight: 222 lbs 01/25/2018 Blood Pressure 1: 122/70 Code: 8480-6 Blood Pressure 2: 126/73 Code: 8480-6 Heart Rate 1: 63 bpm SpO2: 94% 01/24/2018 Blood Pressure 1: 110/72 Code: 8480-6 BMI: 29.7 Code: 80788-7 Heart Rate 1: 88 bpm Height: 6' SpO2: 95% Weight: 219 lbs 12/08/2017 Blood Pressure 1: 120/68 Code: 8480-6 BMI: 30.0 Code: 49618-4 Heart Rate 1: 91 bpm Height: 6' SpO2: 96% Temperature: 36.7 (C) / 98.1 (F) Weight: 221 lbs 10/27/2017 Blood Pressure 1: 124/76 Code: 8480-6 BMI: 30.1 Code: 46616-1 Heart Rate 1: 69 bpm Height: 6' SpO2: 95% Weight: 222 lbs 09/29/2017 Blood Pressure 1: 118 Code: 8480-6 BMI: 29.9 Code: 78647-5 Heart Rate 1: 81 bpm Height: 6' SpO2: 95% Weight: 220 lbs 8 oz 09/01/2017 Blood Pressure 1: 122/82 Code: 8480-6 BMI: 29.6 Code: 46459-4 Heart Rate 1: 75 bpm Height: 6' SpO2: 97% Weight: 218 lbs 08/03/2017 Blood Pressure 1: 120/68 Code: 8480-6 Heart Rate 1: 68 bpm Height: 6' SpO2: 94% Waist Measure (cm): 97 cm 04/26/2017 Blood Pressure 1: 122/72 Code: 8480-6 BMI: 29.4 Code: 17182-0 Heart Rate 1: 85 bpm Height: 6' SpO2: 92% Weight: 217 lbs 01/25/2017 Blood Pressure 1: 118/78 Code: 8480-6 BMI: 29.4 Code: 32095-7 Heart Rate 1: 72 bpm Height: 6' SpO2: 94% Temperature: 36.9 (C) / 98.5 (F) Weight: 217 lbs 10/26/2016 Blood Pressure 1: 152/86 Code: 8480-6 BMI: 29.7 Code: 96475-9 Heart Rate 1: 58 bpm Height: 6' Weight: 219 lbs 09/27/2016 Blood Pressure 1: 138/80 Code: 8480-6 BMI: 29.4 Code: 15355-8 Heart Rate 1: 52 bpm Height: 6' SpO2: 98% Weight: 217 lbs 06/28/2016 Blood Pressure 1: 128/86 Code: 8480-6 BMI: 29.6 Code: 82954-5 Heart Rate 1: 69 bpm Height: 6' SpO2: 93% Weight: 218 lbs 04/27/2016 Blood Pressure 1: 118/82 Code: 8480-6 BMI: 29.3 Code: 89849-9 Heart Rate 1: 85 bpm Height: 6' SpO2: 98% Weight: 216 lbs 02/17/2016 Blood Pressure 1: 132/80 Code: 8480-6 BMI: 28.8 Code: 18970-7 Heart Rate 1: 94 bpm Height: 6' SpO2: 98% Weight: 212 lbs 01/20/2016 Blood Pressure 1: 120/70 Code: 8480-6 BMI: 29.7 Code: 35512-3 Heart Rate 1: 87 bpm Height: 6' SpO2: 92% Weight: 219 lbs 01/06/2016 Blood Pressure 1: 122/88 Code: 8480-6 BMI: 28.8 Code: 83801-5 Heart Rate 1: 83 bpm Height: 6' SpO2: 97% Weight: 212 lbs 12/16/2015 Blood Pressure 1: 98/62 Code: 8480-6 Heart Rate 1: 62 bpm Height: 6' SpO2: 90% Weight: 11/27/2015 Blood Pressure 1: 90/64 Code: 8480-6 Blood Pressure 1: 110/80 Code: 8480-6 Heart Rate 1: 91 bpm Height: 6' SpO2: 92% Weight: 07/30/2015 Blood Pressure 1: 112/82 Code: 8480-6 BMI: 30.5 Code: 52410-9 Heart Rate 1: 82 bpm Height: 6' SpO2: 92% Weight: 225 lbs 06/09/2015 Blood Pressure 1: 130/76 Code: 8480-6 BMI: 31.1 Code: 56490-9 Heart Rate 1: 65 bpm Height: 6' SpO2: 96% Weight: 229 lbs 04/29/2015 Blood Pressure 1: 118/78 Code: 8480-6 BMI: 30.7 Code: 07891-9 Heart Rate 1: 70 bpm Height: 6' Weight: 226 lbs 02/19/2015 Blood Pressure 1: 118/70 Code: 8480-6 BMI: 29.7 Code: 36965-3 Heart Rate 1: 68 bpm Height: 6' [...] data Encounters Encounter Performer Location Codes Date ([id number]) 94697 EST. PATIENT, LEVEL IV Diagnosis: Essential (primary) hypertension[ICD10: I10] Diagnosis: Unsteadiness on feet[ICD10: R26.81] Diagnosis: Abdominal aortic aneurysm, without rupture[ICD10: I71.4] [facility] CPT-4: 01124 03/05/2019 ([id number]) 21881 EST. PATIENT, LEVEL IV Diagnosis: Paroxysmal atrial fibrillation[ICD10: I48.0] Diagnosis: Essential (primary) hypertension[ICD10: I10] Diagnosis: Frequency of micturition[ICD10: R35.0] [facility] CPT-4: 19702 02/12/2019 ([id number]) 63248 EST. PATIENT, LEVEL V Diagnosis: Essential (primary) hypertension[ICD10: I10] Diagnosis: Dizziness and giddiness[ICD10: R42] Diagnosis: Vertigo of central origin, right ear[ICD10: H81.41] Lesley Butcher MD, [facility] CPT-4: 97446 01/29/2019 [id number] EST. PATIENT, LEVEL III Diagnosis: Pleurodynia[ICD10: R07.81] Mady Butcher MD, [facility] CPT-4: 04144 2019 ([id number]) 33549 EST. PATIENT, LEVEL III Diagnosis: Other allergic rhinitis[ICD10: J30.89] Merline Butcher MD, [facility] CPT-4: 66922 01/08/2019 93910 EST. PATIENT, LEVEL IV Diagnosis: Other fatigue[ICD10: R53.83] Diagnosis: Obstructive sleep apnea (adult) (pediatric)[ICD10: G47.33] Diagnosis: Other malaise[ICD10: R53.81] Mady Butcher MD, [facility] CPT-4: 79728 12/25/2018 ([id number]) 43749 EST. PATIENT, LEVEL IV Diagnosis: Shortness of breath[ICD10: R06.02] Diagnosis: Other fatigue[ICD10: R53.83] Diagnosis: Obstructive sleep apnea (adult) (pediatric)[ICD10: G47.33] Diagnosis: Other malaise[ICD10: R53.81] Lesley Butcher MD, [facility] CPT-4: 08034 12/13/2018 ([id number]) 55438 EST. PATIENT, LEVEL IV Diagnosis: Shortness of breath[ICD10: R06.02] Diagnosis: Dizziness and giddiness[ICD10: R42] Diagnosis: Other fatigue[ICD10: R53.83] Diagnosis: Essential (primary) hypertension[ICD10: I10] Diagnosis: Muscle weakness (generalized)[ICD10: M62.81] Merline Butcher MD, [facility] CPT-4: 33427 11/27/2018 ([id number]) 65557 EST. PATIENT, LEVEL IV Diagnosis: Essential (primary) hypertension[ICD10: I10] Diagnosis: Vertigo of central origin, right ear[ICD10: H81.41] Diagnosis: Low back pain[ICD10: M54.5] Lesley Butcher MD [facility] CPT-4: 47705 09/26/2018 ([id number]) 84626 EST. PATIENT, LEVEL III Diagnosis: Dizziness and giddiness[ICD10: R42] Diagnosis: Vertigo of central origin, right ear[ICD10: H81.41] Diagnosis: Essential (primary) hypertension[ICD10: I10] Lesley Butcher MD [facility] CPT-4: 99568 07/26/2018 ([id number]) 55399 EST. PATIENT, LEVEL III Diagnosis: Essential (primary) hypertension[ICD10: I10] Lesley Butcher MD [facility] CPT-4: 09560 06/12/2018 ([id number]) 72864 EST. PATIENT, LEVEL IV Diagnosis: Other iron deficiency anemias[ICD10: D50.8] Diagnosis: Weakness[ICD10: R53.1] Diagnosis: Diverticulosis of large intestine without perforation or abscess with bleeding[ICD10: K57.31] Lesley Butcher MD, [facility] CPT-4: 31043 05/10/2018 ([id number]) 60299 EST. PATIENT, LEVEL IV Diagnosis: Essential (primary) hypertension[ICD10: I10] Diagnosis: Major depressive disorder, recurrent, mild[ICD10: F33.0] Diagnosis: Sensorineural hearing loss, bilateral[ICD10: H90.3] Lesley Butcher MD, [facility] CPT-4: 20788 03/27/2018 ([id number]) Miscellaneous no charge Diagnosis: Essential (primary) hypertension[ICD10: I10] Mady Butcher MD, [facility] CPT-4: 13130 01/25/2018 ([id number]) 88529 EST. PATIENT, LEVEL IV Diagnosis: Essential (primary) hypertension[ICD10: I10] Diagnosis: Sensorineural hearing loss, bilateral[ICD10: H90.3] Diagnosis: Mixed hyperlipidemia[ICD10: E78.2] Diagnosis: Major depressive disorder, recurrent, mild[ICD10: F33.0] Lesley Butcher MD, [facility] CPT-4: 12940 01/24/2018 [id number] EST. PATIENT, LEVEL IV Diagnosis: Other malaise[ICD10: R53.81] Diagnosis: Fever, unspecified[ICD10: R50.9] Mady Butcher MD [facility] CPT-4: 43796 12/08/2017 ([id number]) 16299 EST. PATIENT, LEVEL III Diagnosis: Essential (primary) hypertension[ICD10: I10] Lesley Butcher MD, [facility] CPT-4: 97801 10/27/2017 ([id number]) 23314 EST. PATIENT, LEVEL III Diagnosis: Benign prostatic hyperplasia with lower urinary tract symptoms[ICD10: N40.1] Diagnosis: Dysphagia, pharyngeal phase[ICD10: R13.13] Lesley Butcher MD [facility] CPT-4: 42515 09/29/2017 ([id number]) 87542 EST. PATIENT, LEVEL IV Diagnosis: Essential (primary) hypertension[ICD10: I10] Diagnosis: Major depressive disorder, recurrent, mild[ICD10: F33.0] Diagnosis: Sensorineural hearing loss, bilateral[ICD10: H90.3] Lesley Butcher MD, [facility] CPT-4: 77334 09/01/2017 ([id number]) 33901 EST. PATIENT, LEVEL IV Diagnosis: Essential (primary) hypertension[ICD10: I10] Diagnosis: Major depressive disorder, recurrent, mild[ICD10: F33.0] Diagnosis: Mixed hyperlipidemia[ICD10: E78.2] Lesley Butcher MD [facility] CPT- 4: 36192 04/26/2017 ([id number]) 33802 EST. PATIENT, LEVEL IV Diagnosis: Essential (primary) hypertension[ICD10: I10] Diagnosis: Major depressive disorder, recurrent, mild[ICD10: F33.0] Diagnosis: Urge incontinence[ICD10: N39.41] Lesley Butcher MD, [facility] CPT-4: 83942 01/25/2017 ([id number]) 49711 EST. PATIENT, LEVEL IV Diagnosis: Essential (primary) hypertension[ICD10: I10] Diagnosis: Major depressive disorder, recurrent, mild[ICD10: F33.0] Diagnosis: Urge incontinence[ICD10: N39.41] Lesley Butcher MD, [facility] CPT-4: 17589 10/26/2016 [id number] 29629 EST. PATIENT, LEVEL III Diagnosis: Essential (primary) hypertension[ICD10: I10] Diagnosis: Major depressive disorder, recurrent, mild[ICD10: F33.0] Diagnosis: Urge incontinence[ICD10: N39.41] Lesley Butcher MD, [facility] CPT-4: 98437 09/27/2016 ([id number]) 10188 EST. PATIENT, LEVEL IV Diagnosis: Essential (primary) hypertension[ICD10: I10] Diagnosis: Encounter for immunization[ICD10: Z23] Diagnosis: Laceration without foreign body of left forearm, initial encounter[ICD10: S51.812A] Diagnosis: Laceration without foreign body of right forearm, initial encounter[ICD10: S51.811A] Diagnosis: Major depressive disorder, recurrent, mild[ICD10: F33.0] Lesley Butcher MD, [facility] CPT-4: 94140 06/28/2016 [id number]) 09074 EST. 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 PATIENT, LEVEL IV Diagnosis: Weakness[ICD10: R53.1] Diagnosis: Gout, unspecified[ICD10: M10.9] Diagnosis: Hypotension, unspecified[ICD10: I95.9] Lesley Butcher MD, [facility] CPT-4: 58094 12/16/2015 ([id number]) Patient admitted to the hospital from clinic (NO CHARGE) Diagnosis: Hypoxemia[ICD10: R09.02] Diagnosis: Weakness[ICD10: R53.1] Diagnosis: Dyspnea, unspecified[ICD10: R06.00] Mady Butcher MD, [facility] CPT- 4: 70049Q 11/27/2015 ([id number]) 10159 EST. PATIENT, LEVEL III Diagnosis: Essential (primary) hypertension[ICD10: I10] Diagnosis: Gastro-esophageal reflux disease without esophagitis[ICD10: K21.9] Lesley Butcher MD, [facility] CPT-4: 56054 07/30/2015 ([id number]) 54194 EST. PATIENT, LEVEL III Diagnosis: ESSENTIAL HYPERTENSION[ICD9: 401.9] Merline Butcher MD, [facility] CPT-4: 45268 06/09/2015 ([id number]) 80842 EST. PATIENT, LEVEL III Diagnosis: ESSENTIAL HYPERTENSION[ICD9: 401.9] Lesley Butcher MD, [facility] CPT- 4: 56064 04/29/2015 ([id number]) OFFICE/OUTPATIENT VISIT NEW Diagnosis: ESSENTIAL HYPERTENSION[ICD9: 401.9] Diagnosis: DEPRESSIVE DISORDER NEC[ICD9: 311] Diagnosis: Enlarged prostate[ICD9: 600.00] Diagnosis: Nasal inflammation due to allergen[ICD9: 477.9] [facility] CPT-4: 06414 02/19/2015 Plan of Care Planned Activity Notes [...] discussion. 03/05/2019 App[phone] (15 min) Moderate 03/05/2019 Patient Education: Patient Medication Summary Completed 03/05/2019 Visit Plan: Afib-new diagnosis with cardiology -Dr Deleon -now on coumadin-will return to [place] in 2 weeks to discuss watchman device OSQ-wicpjgbgbr-dh changes Urinary frequency and urgency -check UA -patient unable to void at appt -will bring back sample 02/12/2019 [facility]ment[phone] (30 min) Complex 02/12/2019 Patient Education: [...] when he had previous blockages - his tare weigher in [place] does not seem to be as interested as his family would like - they are wondering about transitioning back to someone from his previous tare weigher group. They have a potential appt pending. [...] when he had previous blockages - his tare weigher in [place] does not seem to be as interested as his family would like - they are wondering about transitioning back to someone from his previous tare weigher group. They have a potential appt pending. I spent 45 minutes with the patient and his family in direct contact and discussion. 01/29/2019 Appointment: [phone] (30 min) Complex 01/29/2019 Patient Education: Patient Medication Summary Completed 01/29/2019 Visit Plan: Left rib pain - x-ray pending - The pt is to use prn antiinflammatories to manage acute pain. The patient is to call the office if the pain is worsening or does not improve. 2019 Appointment: [phone] [facility] (30 min) Complex 2019 Patient Education: Patient [...] spray. 01/08/2019 Appointment: Merline Rose WPtel: [phone] [phone] (30 min) Complex 01/08/2019 Patient Education: Patient Medication Summary Completed 01/08/2019 Visit Plan: Fatigue, shortness of breath, dizziness - pt is to continue PT, pt is to follow up with Dr. Panda and Dr. Harvey and is to notify clinic with any changes in the current treatment plan. 12/25/2018 Appointment: Mady Dunne WPtel: [facility] (15 min) Moderate 12/25/2018 Patient Education: [...] 96% 12/13/2018 Appointment: Lesley Butcher WPtel: [facility] (15 min) Moderate 12/13/2018 Patient Education: Patient Medication Summary Completed 12/13/2018 Visit Plan: AWS-plbamqe-jnfhgsuyu of breath -patient reports worsening of chronic symptoms -will check EKG and cardiac enzymes to evaluate for acute changes -recommend patient follow up with his tare weigher, Dr Sharyn vu -patient, and daughter verbalized understanding of plan. Generalized weakness-discussed PT referral after cleared by cardiology -patient's will call us when she wants to have it set up HTN-no change but monitor at home 11/27/2018 Appointment: Merline Rose WPtel: [phone] (15 min) Moderate 11/27/2018 Patient Education: Patient [...] sessions. 09/26/2018 Appointment: Lesley Butcher WPtel: [facility] (15 min) Moderate 09/26/2018 Patient Education: Patient [...] care surrogate. 08/10/2018 Appointment: [facility]el[phone] [facility] [facility] - Annual Wellness Visit 08/10/2018 Patient Education: [...] [facility] But[facility]Ptel[phone] [facility] (15 min) Moderate 07/26/2018 Patient Education: Patient [...] dexamethasone. 06/12/2018 Appointment: Lesley Butcher WPtel: [phone] [facility] (15 min) Moderate 06/12/2018 Patient Education: Patient Medication Summary Completed 06/12/2018 Visit Plan: Diverticulosis with recent GI bleeding - improved - continue with supportive care, avoid foods which cause any abdominal pain - monitor symptoms - call if any pain or bleeding recurs. Anemia - check labs today. Weakness - continue with increasing of activity. 05/10/2018 Appointment: Lesley Butcher WPtel[phone] [facility] [place] (30 min) Complex 05/10/2018 Patient Education: [...] Lesley Butcher WPtel: [phone] [facility] [place] (15 min) Moderate 03/27/2018 Patient [...] to medications. 01/24/2018 Appointment: Lesley Butcher WPtel: [facility] (15 min) Moderate 01/24/2018 Patient Education: Patient Medication Summary Completed 01/24/2018 Visit Plan: Influenza - pt started on tamiflu - pt to start on anti-inflammatories, tylenol and monitor symptoms. Pt to call if not improving. Pt to alert any close contacts as to illness. 12/08/2017 Appointment: Mady Dunne WPtel: [facility] (30 min) Complex 12/08/2017 Patient Education: [...] [address] [facility] (15 min) Moderate 10/27/2017 Patient Education: Patient Medication Summary Completed 10/27/2017 Referral: External, Ordering Provider Referral Initiated 10/12/2017 Visit Plan: BPH - continue with dutasteride and flomax Dysphagia - referral to Dr. Kumar for EGD - question stricture - dysphagia intermittently - hx of stricture. 09/29/2017 Appointment: Lesley Butcher [facility]Ptel[phone] [facility] (15 min) Moderate 09/29/2017 Patient Education: Patient Medication Summary Completed 09/29/2017 Care Plan: Referral Order SNOMED-CT : [id number] Pending 09/29/2017 Visit Plan: Hypertension - well [...] recommended patient to have an evaluation at [facility] to see if he has potential for cochlear implant. 09/01/2017 Appointment: Lesley Butcher WPtel: [phone] [facility] [place] (15 min) Moderate 09/01/2017 Patient Education: Patient Medication Summary Completed 09/01/2017 Care Plan: Referral Order SNOMED-CT : [id number] Pending 09/01/2017 Visit Plan: Medicare Exam - [...] surrogate. 08/03/2017 Appointment: [facility] Dunne [facility]el[phone] [facility] [facility] - Welcome to Medicare visit 08/03/2017 Patient [...] medications. 04/26/2017 Appointment: Lesley Butcher WPtel: [facility] (15 min) Moderate 04/26/2017 Patient Education: Patient [...] daily. 01/25/2017 Appointment: Lesley Butcher WPtel[phone] [facility] (30 min) Complex 01/25/2017 Patient Education: Patient [...] [place] 10/26/2016 Appointment: Lesley Butcher WPtel: [phone] [facility] (15 min) Moderate 10/26/2016 Patient Education: [...] retention occur. 09/27/2016 Appointment: Lesley Butcher WPtel: [facility] (15 min) Moderate 09/27/2016 [...] andrea 06/28/2016 Appointment: Les[facility] Butcher WPtel: [phone] [facility] (15 min) Moderate 06/28/2016 Patient Education: Patient [...] 1 month 02/17/2016 Appointment: Merline Rose WPtel: [address] [place], [place] [address] (30 min) Complex 02/17/2016 Patient Education: Patient [...] Completed 12/16/2015 Appointment: Lesley Butcher WPtel: [phone] [facility] (15 min) Moderate 12/04/2015 Appointment: Lesley Butcher WPtel: [facility] [facility] (15 min) Moderate 12/02/2015 Visit Plan: Admission [...] THE PHARMACY 07/30/2015 Appointment: Lesley Butcher WPtel: [address] [facility] (15 min) Moderate 07/30/2015 Patient Education: Patient [...] at home. 04/29/2015 Appointment: Lesley Butcher WPtel: [facility] (15 min) Moderate 04/29/2015 Patient Education: Patient [...] External, Ordering Provider Referral Appointment Requested Referral: [facility] 09/12 Referral info faxed Appointment Requested Referral: [facility] Referral Appointment Requested Instructions Comment [...] planned injection in back and call the kettle operator head about a biopsy of the lesion on [...] -Dr Deleon -now on coumadin-will return to [place] in 2 weeks to discuss watchman device RZO-xobinmdyys-kj changes Urinary frequency and urgency -check UA -[facility]will [facility] back sample . [...] ILLNESS. CHECK CARDIAC ENYZMES AND EKG . UXJ-hohnzow-hozonchbh of breath -patient reports worsening of chronic symptoms -will check EKG and cardiac enzymes to evaluate for acute changes -recommend patient follow up with his tare weigher, Dr Stokes -patient, and daughter verbalized understanding [...] recommended patient to have an evaluation at [facility] to see if he has [...] when he had previous blockages - his tare weigher in [place] does not seem to be as interested as his family would like - they are wondering about transitioning back to someone from his previous tare weigher group. They have a potential appt pending. [...] when he had previous blockages - his tare weigher in [place] does not seem to be as interested as his family would like - they are wondering about transitioning back to someone from his previous tare weigher group. They have a potential appt pending. I spent 45 minutes with the patient and his family in direct contact and discussion.
[2019-05-25 03:21] LABS: BASOPHILS % (AUTO) 0 % (0-10); EOSINOPHILS % (AUTO) 0 % (0-10); HEMATOCRIT 38 % (40-54); HEMOGLOBIN 12.5 G/DL (13.3-17.7); LYMPHOCYTES # (AUTO) 0.6 X 10^3 (1.0-4.0); LYMPHOCYTES % (AUTO) 6 % (12-44); MEAN CORPUSCULAR HEMOGLOBIN 30 PG (25-34); MEAN CORPUSCULAR HGB CONC 33 G/DL (32-36); MEAN CORPUSCULAR VOLUME 90 FL (80-99); MEAN PLATELET VOLUME 9.8 FL (7.4-10.4); MONOCYTES # (AUTO) 0.1 X 10^3 (0.0-1.0); MONOCYTES % (AUTO) 1 % (0-12); NEUTROPHILS # (AUTO) 8.3 X 10^3 (1.8-7.8); NEUTROPHILS % (AUTO) 93 % (42-75); PLATELET COUNT 214 10^3/uL (130-400); RED CELL DISTRIBUTION WIDTH 15.2 % (10.0-14.5); WHITE BLOOD COUNT 8.9 10^3/uL (4.3-11.0)
[2019-05-25 03:39] LABS: CALCIUM 9.4 MG/DL (8.5-10.1); CREATININE SERUM 1.34 MG/DL (0.60-1.30); POTASSIUM 5.1 MMOL/L (3.6-5.0)
[2019-05-25] MEDS ORDERED: ceFAZolin INJECTION 1,000 MG ONE (05:44)
[2019-05-25] MEDS ORDERED: WATER (STERILE) FOR INJECTION 10 ML ONE (05:44)
[2019-05-25] MEDS: ceFAZolin INJECTION 1,000 MG in WATER (STERILE) FOR INJECTION 10 ML IV SCH (06:34)
--- NOTE | 2019-05-25 07:50 | NUR ---
Report called to IKE DENISE who will assume pt care at this time. Personal belongings with pt at time of transfer. VSS. Daughter currently at bedside at this time. Pt transported via wheelchair.
--- NOTE | 2019-05-25 08:13 | NUR ---
Pt noted to have 4 bloody 4x4 at bedside prior to transfer. KT, RN notified of bloody output and documentation of such.
[2019-05-25] MEDS: D5 1/2 NS W/KCL 20 MEQ/L 1,000 ML IV SCH (09:28)
--- NOTE | 2019-05-25 10:10 | Consultation ---
History of Present Illness History of Present Illness Patient Consulted On(char/time) 05/25/19 10:03 Date Seen by Provider: May 25, 2019 Time Seen by Provider: 10:20 Reason for Visit: EPISTAXIS History of Present Illness PT IS AN 84 Y/O MALE WHO IS WELL KNOWN TO ME FROM CLINIC. HE PRESENTED TO THE OFFICE YESTERDAY FOR ROUTINE VISIT, THEN PRESENTED ABOUT 5 HOURS LATER WITH ACUTE NASAL HEMORRHAGE. HE HAD BEEN IN THE EMERGENCY DEPARTMENT ABOUT A WEEK PRIOR WITH NASAL HEMORRHAGE WHICH WAS CAUTERIZED. WE WERE UNABLE TO STOP THE BLEEDING IN THE OFFICE AND HE WAS SENT TO DR. HESS'S OFFICE WHERE HE WAS EVALUATED AND TAKEN FOR EMERGENT SURGICAL INTERVENTION IN THE OPERATING ROOM TO FIND AND CAUTERIZE THE SOURCE OF THE BLEEDING. Allergies and Home Medications Allergies Coded Allergies: amoxicillin (Verified Allergy, Severe, RASH, pt has received Ancef & Cefepime in the past, 05/25/19) clavulanic acid (Verified Allergy, Severe, RASH, 12/26/18) Iodinated Contrast- Oral and IV Dye (Verified Allergy, Unknown, 12/26/18) Home Medications Allopurinol 100 Mg Tablet, 100 MG PO DAILY, (Reported) Amiodarone HCl 200 Mg Tablet, 200 MG PO BID, (Reported) Aspirin 325 Mg Tablet.dr, 325 MG PO DAILY, (Reported) Atorvastatin Calcium 80 Mg Tablet, 80 MG PO DAILY, (Reported) Carboxymethylcellulose Sodium 15 Ml Drops, 1 DROP OU DAILY PRN for DRY EYES, (Reported) Cephalexin 500 Mg Capsule, 500 MG PO TID, (Reported) 7 DAY SUPPLY FILLED 05-23-19 Cetirizine HCl 10 Mg Tablet, 10 MG PO DAILY, (Reported) Cholecalciferol (Vitamin D3) 5,000 Unit Tablet, 10,000 UNIT PO DAILY, (Reported) Citalopram Hydrobromide 40 Mg Tablet, 40 MG PO HS, (Reported) Docusate Sodium 100 Mg Capsule, 100 MG PO BID PRN for CONSTIPATION-1ST LINE, (Reported) Fluticasone Propionate 9.9 Ml Jbphh.susp, 1 SPRAY NS HS PRN for ALLERGIES, (Reported) Losartan Potassium 50 Mg Tablet, 50 MG PO HS, (Reported) Multivitamin with Minerals 1 Each Tablet, 1 TAB PO DAILY, (Reported) Nitroglycerin 0.4 Mg Tab.subl, 0.4 MG SL UD PRN for CHEST PAIN, (Reported) Oxymetazoline HCl 30 Ml Jbphh, 2-3 SPRAYS NS Q4H PRN for NOSE BLEED, (Reported) Pantoprazole Sodium 40 Mg Tablet.dr, 40 MG PO DAILY, (Reported) Ropinirole HCl 0.25 Mg Tablet, 0.25 MG PO HS, (Reported) Spironolactone 25 Mg Tablet, 25 MG PO DAILY, (Reported) Tamsulosin HCl 0.4 Mg Cap, 0.4 MG PO HS, (Reported) Warfarin Sodium 1 Mg Tablet, 1 MG PO MoFr, (Reported) TAKES ALONG WITH 3MG TABLET ON TUESDAY AND TUESDAY Warfarin Sodium 3 Mg Tablet, 3 MG PO HS, (Reported) Patient Home Medication List Home Medication List Reviewed: Yes Past Gjokgnh-Uiyorm-Cjgsbq Hx Past Med/Social Hx: Reviewed Nursing Past Med/Soc Hx, Reviewed and Corrections made Patient Social History Alcohol Use: Denies Use Recreational Drug Use: No Smoking Status: Former Smoker Type Used: Cigarettes 2nd Hand Smoke Exposure: No Recent Foreign Travel: No Contact w/Someone Who Travel: No Recent Infectious Disease Expo: No Recent Hopitalizations: Yes (12/2018-DIVERTICULITIS/GI BLEED - 03/2019 NPH WITH GEOMORPHOLOGIST SHUNT) Physical Abuse: No Sexual Abuse: No Mistreated: No Fear: No Immunizations Up To Date Date of Pneumonia Vaccine: Jul 17, 2018 Date of Influenza Vaccine: Jul 08, 2018 Seasonal Allergies Seasonal Allergies: Yes Past Medical History Surgeries: Yes (HEART STENTS X11, HEART BALLOONS X5, BILAT INGUINAL HERNIA, ) Brain Shunt, Cardiac, Coronary Stent, Gallbladder, Vascular Surgery Respiratory: Yes (USES CPAP) Sleep Apnea Currently Using CPAP: Yes Currently Using BIPAP: No Cardiac: Yes (STENTS X11 TOTAL, 5 HEART BALLOON PROCEDURES) Aneurysm, Atrial Fibrillation, Cardiomyopathy, Chronic Edema/Swelling, Coronary Artery Disease, High Cholesterol, Hypertension, Peripheral Vascular Neurological: No Reproductive Disorders: No Sexually Transmitted Disease: No HIV/AIDS: No Genitourinary: No Kidney Stones Gastrointestinal: Yes Abdominal Hernia, Diverticulosis Musculoskeletal: Yes Arthritis Endocrine: No HEENT: Yes (READING GLASSES, Meniere's DX, Cochlear implant- right, nose bleed) Loss of Vision: Bilateral Hearing Impairment: Hard of Hearing, Hearing Aide Left Cancer: No Psychosocial: Yes Depression Integumentary: No Blood Disorders: No Adverse Reaction/Blood Tranf: No (N/A) Family Medical History Reviewed Nursing Family Hx Heart Disease, Hypertension Review of Systems-General Constitutional: No chills, No fever, No malaise; weakness EENTM: epistaxis; No hoarseness, No throat pain Respiratory: cough; No dyspnea on exertion, No short of breath Cardiovascular: No chest pain, No palpitations Gastrointestinal: No abdominal pain, No nausea, No vomiting Genitourinary: frequency; No nocturia Musculoskeletal: No back pain Skin: no symptoms reported; No lesions Psychiatric/Neurological: Denies Anxiety; Depressed, Weakness All Other Systems Reviewed Negative Unless Noted: Yes Physical Exam-General Problems Physical Exam Vital Signs Vital Signs - First Documented 05/24/19 17:04 Temp 99.3 Pulse 75 Resp 20 B/P (MAP) 154/94 (114) Pulse Ox 93 O2 Delivery Room Air Capillary Refill : Less Than 3 SecondsLess Than 3 Seconds General Appearance: WD/WN, no apparent distress Eyes: Bilateral Eye Normal Inspection, Bilateral Eye PERRL, Bilateral Eye EOMI HEENT: PERRL/EOMI, pharynx normal, other (NOSE PACKED) Respiratory: chest non-tender, lungs clear, normal breath sounds Cardiovascular: regular rate, rhythm, systolic murmur Gastrointestinal: normal bowel sounds, non tender, soft, no pulsatile mass Rectal: deferred Extremities: normal range of motion, non-tender, normal capillary refill Neurologic/Psychiatric: 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 HESS SURGICALLY YESTERDAY EVENING. - PLANNING ON PATIENT TO BE IN THE HOSPITAL FOR THE NEXT 24 HOURS FOR MONITORING. CORONARY ARTERY DISEASE - SUPPORTIVE CARE ONLY AT THIS TIME. NORMAL PRESSURE HYDROCEPHALUS WITH SHUNT - SUPPORTIVE CARE AT THIS TIME. INTRACRANIAL ANEURYSM - PARTIALLY CALCIFIED - CONTINUE TO MONITOR. HYPERTENSION - RESUMED HOME REGIMEN. 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 CHRONIC ANTICOAGULATION WITH COUMADIN - HOLD MEDICATION FOR NOW DUE TO HIS EXTENSIVE NASAL HEMORRHAGE - WILL NEED TO RESTART THE DAY AFTER DISCHARGE TO HOME. Admission Status: Inpatient Order (span 2 midnights) Reason for Inpatient Admission: EXTENSIVE NOSE BLEED - POST-OPERATIVE - DEFER TO DR. HESS - WILL BE IN THE HOSPITAL FOR TWO MIDNIGHTS Clinical Quality Measures DVT/VTE Risk/Contraindication: Risk Factor Score Per Nursin RFS Level Per Nursing on Admit: 4+=Very High DAPHNE BHATT MD May 25, 2019 10:10
--- NOTE | 2019-05-25 10:36 | Anesthesia-General Post-Op ---
General Patient Condition Mental Status/LOC: Same as Preop Cardiovascular: Satisfactory Nausea/Vomiting: Absent Respiratory: Satisfactory Pain: Controlled Complications: Absent Post Op Complications Complications None Follow Up Care/Instructions Patient Instructions None needed. Anesthesia/Patient Condition Patient Condition Patient is doing well, no complaints, stable vital signs, no apparent adverse anesthesia problems. No complications reported per nursing. CUATE WALLIS CRNA May 25, 2019 10:35
--- NOTE | 2019-05-25 10:43 | NUR ---
Pt is Cheondoism and would like sacraments. On his way to the bathroom at the moment though.
[2019-05-25] MEDS ORDERED: WARF1TAB82 PO (10:57)
[2019-05-25] MEDS ORDERED: OXYM30SP NS (10:57)
[2019-05-25] MEDS ORDERED: WARF3TAB56 PO (10:57)
[2019-05-25] MEDS ORDERED: CETI10TA20 PO (10:57)
[2019-05-25] MEDS ORDERED: ASPI325T32 PO (10:57)
[2019-05-25] MEDS ORDERED: CEPH500C PO (10:57)
[2019-05-25] MEDS ORDERED: DOCU-143 PO (11:00)
--- NOTE | 2019-05-25 11:04 | NUR ---
WENT OVER THE EXT MED HX WITH THE PATIENTS FAMILY. THE AMIODARONE 200MG WAS FILLED TID #100 05-03-19 HOWEVER STATES HE IS ONLY TAKING IT BID NOW. HE FILLED WARFARIN 1MG Tue FR #36 HOWEVER STATES HE ONLY TAKES THE 1MG ON MONDAYS AND FRIDAYS. HE TAKES 3MG EVERY DAY. OTC MEDS: REFRESH DROPS PRN ZYRTEC 10MG DAILY (ALTERNATES BETWEEN THIS AND RACHEL) COLACE PRN FLONASE PRN MTV DAILY
--- NOTE | 2019-05-25 13:26 | NUR ---
PT IV WAS PULLED OUT BY PATIENT ON ACCIDENT, THIS RN CALLED DR HESS, DR HESS OKAYED TO LEAVE IV OUT AND CHANGE IV ABX TO KEFLEX 500MG PO TID.
[2019-05-25] MEDS ORDERED: DOCUSATE SODIUM 100 MG (COLACE) CAP PO PRN (13:30)
[2019-05-25] MEDS ORDERED: NITROGLYCERIN 0.4 MG SL TABS BTL 25'S SL PRN (13:30)
[2019-05-25] MEDS ORDERED: CEPHALEXIN 250 MG (KEFLEX) CAP PO ONE (13:41)
[2019-05-25] MEDS ORDERED: ALLOPURINOL 100 MG (ZYLOPRIM) TAB ONE (13:41)
[2019-05-25] MEDS ORDERED: AMIODARONE 200 MG (CORDARONE) TAB ONE (13:41)
[2019-05-25] MEDS ORDERED: SPIRONOLACTONE 25 MG (ALDACTONE) TAB ONE (13:41)
[2019-05-25] MEDS ORDERED: rOPINIRole 0.25 MG (REQUIP) TAB ONE (13:41)
[2019-05-25] MEDS: SPIRONOLACTONE 25 MG (ALDACTONE) TAB PO SCH (13:50)
[2019-05-25] MEDS: ALLOPURINOL 100 MG (ZYLOPRIM) TAB PO SCH (13:50)
[2019-05-25] MEDS: AMIODARONE 200 MG (CORDARONE) TAB PO SCH ×2 (13:51→21:44)
[2019-05-25] MEDS: CEPHALEXIN 250 MG (KEFLEX) CAP PO SCH ×2 (13:52→21:44)
[2019-05-25] MEDS: rOPINIRole 0.25 MG (REQUIP) TAB PO SCH ×2 (13:52→21:44)
[2019-05-25] MEDS: LORATADINE (CLARITIN) 10 MG TAB PO SCH (13:59)
[2019-05-25] MEDS: VITAMIN D3 5,000 UNITS (CHOLECALCIFEROL ) CAPSULE PO SCH (14:00)
[2019-05-25] MEDS: PANTOPRAZOLE 40 MG (PROTONIX) TAB PO SCH (14:00)
[2019-05-25] MEDS ORDERED: ARTIFICAL TEARS 0.4 ML UNIT DOSE (REFRESH PLUS) OU PRN (14:00)
[2019-05-25] MEDS: ATORVASTATIN 80 MG (LIPITOR) TABLET PO SCH (14:00)
[2019-05-25] MEDS ORDERED: OXYMETAZOLINE (AFRIN) 0.05% NA 15 ML BTL PRN (14:15)
--- NOTE | 2019-05-25 17:00 | NUR ---
DRESSING TO PT'S NOSE SOILED WITH SCANT AMOUNT OF BLOOD. DRESSING CHANGED PER PT'S 'S REQUEST.
--- NOTE | 2019-05-25 18:45 | NUR ---
SCANT AMOUNT OF BLOOD NOTED TO DRESSING. DRESSING CHANGED PER FAMILY'S REQUEST.
[2019-05-25] MEDS ORDERED: LOSARTAN 50 MG (COZAAR) TAB PO SCH (21:00)
[2019-05-25] MEDS ORDERED: TAMSULOSIN 0.4 MG (FLOMAX) CAP PO SCH (21:00)
[2019-05-25] MEDS ORDERED: FLUTICASONE NASAL SPRAY (FLONASE) 16 GM BTL NS PRN (21:00)
--- NOTE | 2019-05-25 23:30 | NUR ---
pt moved to 428, personal belonging taken with pt. sitter placed outside room.
--- NOTE | 2019-05-25 23:35 | NUR ---
notified of moving pt to another room, so he can be watched closer.
[2019-05-26 04:00] VITALS: BP 140/80
[2019-05-26 05:53] LABS: BASOPHILS % (AUTO) 0 % (0-10); EOSINOPHILS % (AUTO) 0 % (0-10); HEMATOCRIT 34 % (40-54); HEMOGLOBIN 11.4 G/DL (13.3-17.7); LYMPHOCYTES # (AUTO) 1.1 X 10^3 (1.0-4.0); LYMPHOCYTES % (AUTO) 9 % (12-44); MEAN CORPUSCULAR HEMOGLOBIN 30 PG (25-34); MEAN CORPUSCULAR HGB CONC 33 G/DL (32-36); MEAN CORPUSCULAR VOLUME 90 FL (80-99); MEAN PLATELET VOLUME 10.1 FL (7.4-10.4); MONOCYTES # (AUTO) 0.8 X 10^3 (0.0-1.0); MONOCYTES % (AUTO) 7 % (0-12); NEUTROPHILS # (AUTO) 10.6 X 10^3 (1.8-7.8); NEUTROPHILS % (AUTO) 84 % (42-75); PLATELET COUNT 233 10^3/uL (130-400); RED CELL DISTRIBUTION WIDTH 15.2 % (10.0-14.5); WHITE BLOOD COUNT 12.6 10^3/uL (4.3-11.0)
[2019-05-26 06:01] LABS: INR 2.1 (0.8-1.4); PROTHROMBIN TIME PATIENT 24.2 SEC (12.2-14.7)
[2019-05-26 06:10] LABS: CALCIUM 9.6 MG/DL (8.5-10.1); CREATININE SERUM 1.44 MG/DL (0.60-1.30); POTASSIUM 4.7 MMOL/L (3.6-5.0)
--- NOTE | 2019-05-26 06:18 | Progress Note ---
Standard Progress Note Progress Notes/Assess & Plan Date Seen by a Provider: May 26, 2019 Time Seen by a Provider: 06:00 Progress/Assessment & Plan [facility] and Physical cc: Left Posterior Epistaxis HPI: Patient presentd actuely to office with a 1 hour duration of bleedingform both sides of the nose. Bled first on tuesday and then started again this pm while at [employer]. Saw Dr. Butcher who then referred over. No prior history of epistaxis. Is on coumadin because of AFIB-INR 2.3. In last month was diagnosed with a brain aneurysm and now has a PLC TECHNICIAN shunt in as well. exam: Nose-large amoutn of bleeding seen on the left side of the nose anteriorly and posteriorl; some crossover bleeding on right side; site is posterior on left ORal Cavity-alrge amoutn of blodo in pharynx IMP: Left Posterior Epistaxis REc: Will need control in the OR. Risks and beneftis andsign risk because of aneursym discussed with family and patient. NO alternative but to do surgery. will proced directly to the OR when room available. Aleksey /-5am Doing better-much less bleeding HGB-12.5-which is good BMP-normal with exception of K+- 5.1 BP-104/83-required one dose of hydralazine mid evening las night otherwise has been good coumadin held-last INR was 2.3 prior to admission This am: Nose-vaseline gauze packing on left side of nose with minimal bleeding-right side had about 2cc of crossover old blood-no new bleeding seen oropharynx-minimal old blood present-uvula less swollen this am Overall-looks very good considering will get a normal diet this am Will Ask Dr Butcher for a consult-Re: general medical condition/meds Tentatively plan on holding coumadin and aspirin until tuesday and may resume his other medications except the flonase which he will be off of for a couple weeks if rebleeds will have to consider reversing his coumadin with vit K and fresh frozen plasma-trying to avoid that because of heart stents and other vascular problems To that end may have to put up with some oozing as long as HGB stays decent will followup later this morning to recheck-plan on keeping in cardiac step down status for now-may switch him to in patient-if does perfect may be able to go home on tuesday depending on any recurrent bleeding and medical condition-since surgery he has had oozing but no marked acute bleeding ENT-Farzad Dpoing well-no sign bleeding mariann diet Exam-minimal old blood on packing op_dry lizabeth ldischarge after breakfast rtc-in 3-4 days for packing removal on left call if severe bleeding occurs discharge prescriptions in chart EMILEE HESS MD May 26, 2019 06:18
[2019-05-26 07:46] VITALS: BP 119/75
[2019-05-26] MEDS ORDERED: MULTIVIT W/MINERALS TAB (THERAGRAN M) PO SCH (09:00)
[2019-05-26] MEDS: VITAMIN D3 5,000 UNITS (CHOLECALCIFEROL ) CAPSULE PO SCH (09:27)
[2019-05-26] MEDS: CEPHALEXIN 250 MG (KEFLEX) CAP PO SCH (09:27)
[2019-05-26] MEDS: SPIRONOLACTONE 25 MG (ALDACTONE) TAB PO SCH (09:28)
[2019-05-26] MEDS: AMIODARONE 200 MG (CORDARONE) TAB PO SCH (09:28)
[2019-05-26] MEDS: ALLOPURINOL 100 MG (ZYLOPRIM) TAB PO SCH (09:28)
[2019-05-26] MEDS: LORATADINE (CLARITIN) 10 MG TAB PO SCH (09:28)
[2019-05-26] MEDS: ATORVASTATIN 80 MG (LIPITOR) TABLET PO SCH (09:28)
[2019-05-26] MEDS: PANTOPRAZOLE 40 MG (PROTONIX) TAB PO SCH (09:28)
[2019-05-26] MEDS ORDERED: CEPH-507 PO (09:55)
[2019-05-26] MEDS ORDERED: HYDR-3812 PO (09:55)
[2019-05-26 10:30] VITALS: BP 119/75
--- NOTE | 2019-05-26 10:45 | NUR ---
NAA WALKER demonstrates understanding of discharge instructions and accurately returns instructions upon questioning. Copy of Post-Discharge Instructions and Medication Discharge Instructions given to PATIENT AND FAMILY. ANA WALKER is able to manage continuing needs after discharge WITH ASSISTANCE OF FAMILY. Patients belongings returned to PATIENT AND FAMILY. Skin dry and intact; no breakdown noted, NOSE PACKING IN PLACE. Patient discharged from [facility] on 05/26/19 at 1045. ANA WALKER left floor via , accompanied by STAFF AND FAMILY.
--- OUTSIDE RECORDS SUMMARY | 2019-05-28 08:49 | XMS REPORT | Encounter Summary ---
Author Author [facility] Organization [facility] Address Unknown Phone Unavailable Care Team Providers Care Machine Castings Plasterer Name Role Phone Michael Velasquez MD Unavailable Lesley Butcher MD PCP Reason for Visit * Reason Comments Results Encounter Details Care Team Description Date Type Department Ton Weber MD [address] [facility] Ortho/Med Pavilion Lvl 2B [place], [place] [id number] Results 05/22/2019 Telephone [facility] [address] [place] [address] Social History Date Tobacco Use [...] CT of the head done at [facility] in [place], [place] yesterday. Images reviewed by Dr. Fulton [...]
--- OUTSIDE RECORDS SUMMARY | 2019-05-28 08:49 | XMS REPORT | Encounter Summary ---
Author Author [facility] Organization [facility] Address Unknown Phone Unavailable Care Team Providers Care International Project Engineer Name Role Phone Michael Velasquez MD Unavailable Lesley Butcher MD PCP Reason for Visit * Reason Comments Medical Question Encounter Details Care Team Description Date Type Department Ton Weber MD [address] [facility] Ortho/Med Pavilion Lvl [address] [place] [address] Medical Question 05/16/2019 Telephone [facility] [address] [place] [address] Social History Date Tobacco Use [...]
--- OUTSIDE RECORDS SUMMARY | 2019-05-28 08:49 | XMS REPORT | Encounter Summary ---
Author Author [facility] Organization [facility] Address Unknown Phone Unavailable Care Team Providers Care Continuing Education Director Name Role Phone Michael Velasquez MD Unavailable Lesley Butcher MD PCP Reason for Referral * Radiology Services (Routine) Referred By Contact Referred To Contact Status Reason Specialty Diagnoses / Procedures Ton Weber MD [address] Ortho/Med Pav[address]vl [address] [place] [address] [address] No Auth Needed Radiology Diagnoses NPH (normal pressure hydrocephalus) Altered mental status, unspecified altered mental status type P rocedures CT HEAD WO CONTRAST Reason for Visit * Reason Comments Post Operative Visit Encounter Details Care Team Description Date Type Department Ton Weber MD [address] [place] [facility] Ortho/Med Pavilion Lvl [address] [place] [address] [phone] NPH (normal pressure hydrocephalus) (Primary Dx); Altered mental status, unspecified altered mental status type 05/09/2019 Office Visit [facility] [address] [place] [id number] Social History Date Tobacco Use Types Packs/Day [...] Performed At 1. Unchanged left frontal approach [employer] [employer] shunt position with interval decrease in [facility] [...] white matter hypodensities. The left frontal approach [employer] [employer] shunt catheter remains in similar position within [...] white matter hypodensities. The left frontal approach [employer] [employer] shunt catheter remains in similar position within [...] implant. IMPRESSION 1. Unchanged left frontal approach [employer] [employer] shunt position with interval decrease in ventriculomegaly. [...]
--- OUTSIDE RECORDS SUMMARY | 2019-05-28 08:49 | XMS REPORT | Clinical Summary ---
Author Author [facility] Organization [facility] Address Unknown Phone Unavailable Care Team Providers Care Turn Supervisor Name Role Phone Michael Velasquez MD Unavailable Lesley Butcher MD PCP Source Comments Some departments are not documenting in the electronic medical record. If you d o not see the information that you expected, contact Release of Information in [facility] [employer] Information Management department at [phone] for further assistan ce in locating additional records.[facility] Allergies Comments Active Allergy Reactions Severity Noted [...] Overview: Added automatically from request for surgery [id number] Encounters Care Team Description Date Type Specialty [...] type 05/09/2019 Office Visit Neurosurgery Kelley Jeong APRN-LOBBY PORTER Visit for wound check (Primary Dx) 04/12/2019 Office Visit Neurosurgery Ton Weber MD 04/12/2019 Hospital Radiology Encounter Michael Vann CRNA 04/02/2019 Anesthesia Radiology Event Ton Weber MD NPH (normal pressure hydrocephalus) (Primary Dx); S/P LOAN COLLECTOR shunt 03/30/2019 Orders Only Neurosurgery Juan J [...] Type Area Manufactur er 11/16/2020 CI-[id number] / [id number] / [id number] Implant Cochlear [facility] Right: Ear UNIDENTIFI [employer] [place] Electrode Sterile ED [facility] [place] - [id number] Implanted: Qty: 1 on 02/24/2018 by Yung Moreno MD at [facility] Description: [facility] approved for 1.5T with the magnet in place - an MRI Antenna Coil Cover and a simple head-bandage procedure is all that is required, no surgical procedure is necessary [facility] approved for 3T MRI with the magnet removed - the magn et can be taken out easily and replaced through a small incision, without the inconvenience of removing the implant 2020 [id number] / [id number] / [id number] Valve Shunt Certas Plus Siphonguard Right: Brain UNIDENTIFI Inline Catheter - [id number] MFG Implanted: Qty: 1 on 03/29/2019 by Mario Pereyra MD at [facility] [id number] 11/16/2019 [id number] / [id number] / [id number] Device Closure 70cm 6fr Angio-Seal Right: Femoral TERUMO Vip .035in Vascular - Sna Artery INTERVENTI Implanted: Qty: 1 on 03/30/2019 by Ton Blank MD at [facility] Procedures Comments Procedure Name Priority Date/Time Associated Diagnosis CT HEAD WO CONTRAST Routine 05/09/2019 NPH (normal pressure 11:08 AM CDT hydrocephalus) Altered mental status, unspecified altered mental status type CT HEAD WO CONTRAST Routine 04/12/2019 NPH (normal pressure 10:33 AM CDT hydrocephalus) S/P LOAN COLLECTOR shunt MRA HEAD WO/W CONTRAST Routine 04/03/2019 [...] Performed At 1. Unchanged left frontal approach LOAN COLLECTOR shunt position with interval decrease in [facility] [...] white matter hypodensities. The left frontal approach LOAN COLLECTOR shunt catheter remains in similar position within [...] white matter hypodensities. The left frontal approach LOAN COLLECTOR shunt catheter remains in similar position within [...] implant. IMPRESSION 1. Unchanged left frontal approach LOAN COLLECTOR shunt position with interval decrease in ventriculomegaly. [...] imaging of the head was performed. 3D jvut-sw-upzqfurzpixj of the [place] was performed prior to and [...] placed over the indwelling right-sided cochlear implant pushcart peddler/stimulator and implanted fixation magnetic by Dr. Whiting [...] imaging of the head was performed. 3D swop-mt-dvfzwg images of the [place] was performed prior to and [...] placed over the indwelling right-sided cochlear implant pushcart peddler/stimulator and implanted fixation magnetic by Dr. Whiting [...] imaging of the head was performed. 3D jxyt-ts-jewczocqnrkw of the [place] was performed prior to and [...] placed over the indwelling right-sided cochlear implant pushcart peddler/stimulator and implanted fixation magnetic by Dr. Whiting [...] imaging of the head was performed. 3D lvmf-vn-gekvru images of the [place] was performed prior to and following the administration of MultiHance. MRA maximum intensity projection images were obtained of the brain with image postprocessing. COMPARISON: CT head dated March 29, 2019. Cerebral angiography dated April 02, 2019. FINDINGS: Dr. Scot Rosne M.D. has personally reviewed these images and formulated the interpretations and opinions expressed in this report. Head wrap was placed over the indwelling right-sided cochlear implant pushcart peddler/stimulator and implanted fixation magnetic by Dr. Whiting [...] suite for transradial approach under general anesthesia. WAREHOUSE ATTENDANT. Gus PLEAT PATTERNMAKER. None ANESTHESIA. General PROCEDURE. Ultrasound guided radial [...] Heparin ~70 units/kg was administered intravenously. A 5-[place] Terumo Block-2 or Block-3 diagnostic catheter was [...] from pathology. The branching superior cerebellar and ADMINISTRATOR OF HOME HEALTH vessels appear within normal limits. Compared to [...] suite for transradial approach under general anesthesia. WAREHOUSE ATTENDANT. Gus PLEAT PATTERNMAKER. None ANESTHESIA. General PROCEDURE. Ultrasound guided radial [...] Heparin ~70 units/kg was administered intravenously. A 5-[place] Terumo Block-2 or Block-3 diagnostic catheter was [...] from pathology. The branching superior cerebellar and ADMINISTRATOR OF HOME HEALTH vessels appear within normal limits. Compared to [...] AM. Performing Organization Address City/State/Zipcode Phone Number [facility] RESULTS * TYPE & CROSSMATCH (04/02/2019 10:46 AM CDT) Only the most recent of 2 results within the time period is included. Units Ordered 0 [facility] Crossmatch 04/05/2019 [facility] Expires Record Check FOUND [facility] ABO/RH(D) O POS [facility] Antibody Screen NEG [facility] Electronic YES [facility] Crossmatch Specimen Blood Performing Organization Address City/State/Zipcode Phone Number [facility] [address] [place] [address] * CBC AND DIFF (04/01/2019 4:28 AM [...] City/State/Zipcode Phone Number [facility] [address] [place] [address] * BASIC METABOLIC PANEL (04/01/2019 4:28 AM [...] (L) >60 mL/min [facility] Comment: [place] The eGFR is not validated for use in drug dosing adjustments.Continue to use estimated creatinine clearance per dosing reference text.Please contact the Clinical Pharmacist for questions. eGFR >60 >60 mL/min [facility] [place] Comment: The eGFR is not validated for use in drug dosing adjustments.Continue to use estimated creatinine clearance per dosing reference text.Please contact the Clinical Pharmacist for questions. Specimen Blood Performing Organization Address City/State/Zipcode Phone Number [facility] [address] [place] [address] * ABDOMEN AP & LAT (03/29/2019 10:48 PM CDT) Specimen Impressions Performed At Intact abdominal segment of the LOAN COLLECTOR shunt catheter with no evidence of kinking [...] quadrant. IMPRESSION Intact abdominal segment of the LOAN COLLECTOR shunt catheter with no evidence of kinking [...] PM CDT) Specimen Impressions Performed At 1.Intact LOAN COLLECTOR shunt tubing without kink or fracture. [facility] RESULTS 2.Widening of the upper mediastinum. This is nonspecific, and may be projectional, or due to ectasia of the thoracic aorta. Follow-up upright 2 view chest x-ray is recommended. If the abnormality persists, CT of the chest is recommended. Approved by Dax Fnuez M.D. on 03/30/2019 9:07 AM By my [...] pneumothorax, or lobar consolidation. IMPRESSION 1. Intact LOAN COLLECTOR shunt tubing without kink or fracture. 2. [...] on 03/30/2019 8:24 AM. Performing Organization Address City/State[facility] Phone Number [facility] RESULTS * C [...] Address City/State/Zipcode Phone Number MAIN LAB [address] [place] [address] * PROTIME INR (PT) (03/29/2019 7:28 AM CDT) Only the most recent of 3 results within the time period is included. INR 1.1 0.8 - 1.2 MAIN LAB Specimen Blood Performing Organization Address City/State/Zipcode Phone Number MAIN LAB [address] [place] [address] * BLOOD TYPE CONFIRMATION - ORDER ONLY IF REQUESTED BY LAB (03/28/2019 8:48 PM CDT) ABO/RH(D) O POS MAIN LAB Specimen Blood Performing Organization Address City/[facility]/Zipcode Phone Number MAIN LAB [address] [place] [address] * 2-D + DOPPLER ECHOCARDIOGRAM (03/27/2019 10:35 [...] area= LAB AV index 0.85 OTHER OUTSIDE (nulato) LAB E/A ratio 0.80 OTHER OUTSIDE LAB LVOT area 2.72 cm2 OTHER OUTSIDE LAB LVOT stroke 70.10 cm3 OTHER OUTSIDE volume LAB TV rest 21 mmHg OTHER OUTSIDE pulmonary LAB artery pressure E/E' ratio 6.43 OTHER OUTSIDE LAB Left Atrium 16.09 16 - 34 OTHER OUTSIDE Index LAB Cardiology Siemens [id number] OTHER OUTSIDE Ultrasound LAB Machine Left Ventricle [...] Phone Number MAIN LAB [address] [place] [address] * TELEMETRY STRIPS-SCAN (03/26/2019 12:00 AM CDT) [...] [id number] 2017-P SUPPLEMENT resent Advance Directives Patient Internal Medicine Hospitalist Explanation Type Date Recorded Advance 02/03/2007 12:00 AM Directive/DPOA Date Inactivated Comments Code Status Date Activated 04/04/2019 12:11 PM Full Code 03/26/2019 12:05 PM Provider has discussed Code Status No, more discussion w/Patient or Family? needed
--- OUTSIDE RECORDS SUMMARY | 2019-05-28 08:49 | XMS REPORT | Encounter Summary ---
Author Author [facility] Organization [facility] Address Unknown Phone Unavailable Care Team Providers Care Billet Examiner Name Role Phone Michael Velasquez MD Unavailable Lesley Butcher MD PCP Reason for Referral * Radiology Services (Routine) Referred By Contact Referred To Contact Status Reason Specialty Diagnoses / Procedures Ton Weber MD [address] [facility] Lvl [address] [place] [address] New Request Radiology Diagnoses Obstructive hydrocephalus Frequent falls P rocedures CT HEAD WO CONTRAST Encounter Details Care Team Description Date Type Department Ton Weber MD [address] [facility] [address] [place] [address] Obstructive hydrocephalus (Primary Dx); Frequent falls 05/18/2019 Orders Only The [facility] [address] [place] [address] Social History Date Tobacco Use [...]
--- OUTSIDE RECORDS SUMMARY | 2019-05-28 08:49 | XMS REPORT | Encounter Summary ---
Author Author [facility] Organization [facility] Address Unknown Phone Unavailable Care Team Providers Care Application Support Technician Name Role Phone Michael Velasquez MD Unavailable Lesley Butcher MD PCP Reason for Referral * Radiology Services (Routine) Referred By Contact Referred To Contact Status Reason Specialty Diagnoses / Procedures Ton Weber MD [address] [facility] [address] [place] [address] [place] [address] No Auth Needed Radiology Diagnoses NPH (normal pressure hydrocephalus) Altered mental status, unspecified altered mental status type P rocedures CT HEAD WO CONTRAST * Radiology Services (Routine) Referred By Contact Referred To Contact Status Reason Specialty Diagnoses / Procedures Ton Weber MD [address] [facility] [address] [place] [address] [place] [address] No Auth Needed Radiology Diagnoses NPH (normal pressure hydrocephalus) Altered mental status, unspecified altered mental status type P rocedures CT HEAD WO CONTRAST Reason for Visit * Radiology Services (Routine) Referred By Contact Referred To Contact Status Reason Specialty Diagnoses / Procedures Ton Weber MD [address] [facility] [address] [place] [address] [address] No Auth Needed Radiology Diagnoses NPH (normal pressure hydrocephalus) Altered mental status, unspecified altered mental status type P rocedures CT HEAD WO CONTRAST Encounter Details Care Team Description Date Type Department Ton Weber MD [address] [facility] Lvl [address] [place] [address] [phone] 05/09/2019 [facility] [address] [address] Social History Date Tobacco Use Types Packs/Day [...] Performed At 1. Unchanged left frontal approach DEPUTY SHERIFF BAILIFF shunt position with interval decrease in [facility] [...] white matter hypodensities. The left frontal approach DEPUTY SHERIFF BAILIFF shunt catheter remains in similar position within [...] white matter hypodensities. The left frontal approach DEPUTY SHERIFF BAILIFF shunt catheter remains in similar position within [...] implant. IMPRESSION 1. Unchanged left frontal approach DEPUTY SHERIFF BAILIFF shunt position with interval decrease in ventriculomegaly. [...]
--- OUTSIDE RECORDS SUMMARY | 2019-05-28 08:50 | XMS REPORT | Encounter Summary ---
Author Author [facility] Organization [facility] Address Unknown Phone Unavailable Care Team Providers Care Chuck Tender Name Role Phone Michael Velasquez MD Unavailable Lesley Btucher MD PCP Reason for Referral * Radiology Services (Routine) Referred By Contact Referred To Contact Status Reason Specialty Diagnoses / Procedures Ton Weber MD [address] [facility] [address] [place] [address] [place] [address] No Auth Needed Radiology Diagnoses NPH (normal pressure hydrocephalus) S/P UTILITY MAINTENANCE WORKER shunt P rocedures CT HEAD WO CONTRAST * Radiology Services (Routine) Referred By Contact Referred To Contact Status Reason Specialty Diagnoses / Procedures Ton Weber MD [address] [facility] [address] [place] [address] [place] [address] No Auth Needed Radiology Diagnoses NPH (normal pressure hydrocephalus) S/P UTILITY MAINTENANCE WORKER shunt P rocedures CT HEAD WO CONTRAST Reason for Visit * Radiology Services (Routine) Referred By Contact Referred To Contact Status Reason Specialty Diagnoses / Procedures Ton Weber MD [address] [facility] [address] [place] [address] [place] [address] No Auth Needed Radiology Diagnoses NPH (normal pressure hydrocephalus) S/P UTILITY MAINTENANCE WORKER shunt P rocedures CT HEAD WO CONTRAST Encounter Details Care Team Description Date Type Department Ton Weber MD [address] [facility] [address] [place] [address] [phone] 04/12/2019 [facility] Encounter [facility] [address] [place] [address] Social History Date Tobacco Use Types Packs/Day [...] (normal pressure 10:33 AM CDT hydrocephalus) S/P UTILITY MAINTENANCE WORKER shunt documented in this encounter Results [...] RESULTS History: Normal pressure hydrocephalus. Status post UTILITY MAINTENANCE WORKER shunt placement. Technique: Multiple contiguous axial [...] head History: Normal pressure hydrocephalus. Status post UTILITY MAINTENANCE WORKER shunt placement. Technique: Multiple contiguous axial [...] hydrocephalus) Idiopathic normal pressure hydrocephalus (INPH) S/P UTILITY MAINTENANCE WORKER shunt Presence of cerebrospinal fluid drainage device documented in this encounter
--- OUTSIDE RECORDS SUMMARY | 2019-05-28 08:50 | XMS REPORT | Encounter Summary ---
Author Author [facility] Organization [facility] Address Unknown Phone Unavailable Care Team Providers Care Fast Food Manager Name Role Phone Michael Velasquez MD Unavailable Lesley Butcher MD PCP Reason for Visit * Reason Comments Post Operative Visit 2wk follow-up with CT Encounter Details Care Team Description Date Type Department Kelley Jeong APRN-KARI [address] [facility] [address] [place] [address] Visit for wound check (Primary Dx) 04/12/[address] [facility] [address] [place] [phone] Social History Date Tobacco Use Types Packs/Day [...]
--- OUTSIDE RECORDS SUMMARY | 2019-05-28 08:53 | XMS REPORT | Encounter Summary ---
Author Author [facility] Organization [facility] Address Unknown Phone Unavailable Care Team Providers Care Underwriting Consultant Name Role Phone Michael Velasquez MD Unavailable Lesley Butcher MD PCP Reason for Visit * Auth/Cert Referred By Contact Referred To Contact Status Reason Specialty Diagnoses / Procedures Diagnoses Cerebral Aneurysm Encounter Details Care Team Description Date Type Department Ton Weber MD [address] Ortho[facility] Lvl [address] [place] [id number] [phone] Aneurysm (HCC) 03/26/2019 [facility] 04/04/[address] [place] [id number] Social History Date Tobacco Use Types Packs/Day [...] coronary stents, AAA w ho presents to [facility] with complaints of roughly a year worth [...] Reb Medicine consulted. 03/29: to OR for INTELLECTUAL PROPERTY MANAGER shunt placement. 03/30: Doing well post operatively. [...] or concerns regarding your hospital stay, call [phone] Discharging attending physician: TON WEBER [[id number]] Regular Diet You have no dietary restriction. [...] CT HEAD W/O CONTRAST with CT - [facility] (JUNIOR Galan) [address] [facility] [address] Apr 12, 2019 1:30 PM CDT Post - Op with NEUROSURGERY WEIGHT COUNT OPERATOR CLINIC [facility] (NeuroSurgery) [address] Level 2 Pod B [facility] [address] Jul 19, 2019 1:00 PM CDT COCHLEAR INTERP with NELL Joseph [facility] (ENT) [address] Level 3 [address] [facility] [address] Pending items needing follow [...] or concerns related to the procedu re,call [phone] for Tuesday-Tuesday 7-5. After-hours and weekends, lizeth hsieh [phone] and ask for the Interventional Dermatology Nurse alonzojarred linda * Additional Instructions* Allison Stockton RN - 03/30/2019 2:40 PM CDT Estrada Godoy NPH (normal pressure hydrocephalus) with Left ventriculoperitoneal shunt placeme nt on 03/29/[address] Weber Neurosurgery Discharge Instructions Contact information: ? Please feel free to call Neurosurgery at any time if you have questions or are experiencing problems at discharge [phone]. Post-operative wound care: ? Your head incision [...] @ 11:15, CT head w/o contrast @ [facility], prior to appointment. ? 04/12/19 @ 1:45 [...] Reason for Visit: Follow up visit, Mindy/Worship: Pentecostal catholci Source of Purpose/Meaning: making good progress, talking about moving to the nex t stage of care and planing to move to rehab facility in [facility] , his and katiuska griggs who [...] NPH (normal pressure hydrocephalus) OR 03/29/19 Left INTELLECTUAL PROPERTY MANAGER shunt system placement Continue current care PT/OT Pain control Discharge planning -- CM/SW invovlved;- IPR planned at [address] for this AM Prophylaxis: B) Lines: No C) Urinary Catheter: No D) Antibiotic Usage: No E) VTE: Pharmacological prophylaxis; SQ Heparin and Mechanical prophylaxis; Seq uential compression device F) Restraints: Patient assessed for need for restraints. Please call [phone] with any questions. Valery Mccall APRN [phone] or Demetria hope * Valery Mccall APRN [...] NPH (normal pressure hydrocephalus) OR 03/29/19 Left INTELLECTUAL PROPERTY MANAGER shunt system placement Continue current care Plan [...] assessed for need for restraints. Please call [phone] with any questions. Valery Mccall APRN [phone] or Demetria me * Lorna Liz - 04/03/2019 9:15 AM CDT OCCUPATIONAL THERAPY PROGRESS NOTE Patient Name: Estrada Godoy Room/Bed: [place] [address] Admitting Diagnosis: Cerebral Aneurysm Mobility Progressive Mobility Level: Walk in hallway Distance Walked (feet): 380 ft Level of Assistance: Assist X1 Assistive Device: Hand Held Time Tolerated: 11-30 minutes Activity Limited By: Weakness Subjective Pertinent Dx per Physician: 84 y.o. male with PMHx significant for A.Fib on warf erin, CAD s/p CABG and multiple coronary stents, AAA who presents to [facility] with C C of roughly a year [...] Home Equipment: Walker;Cane Prior Function Level Of [place]: Needed assistance with functional transfers Lives With: [...] out of house, Stairs, Transfers, Toileting Therapist: oLrna Liz OTR/Angely [id number] Date: 04/03/2019 * Bryce Boyer, PT - [...] multiple coronary stents, AAA who presents to [facility] with CC of roughly a year worth of gait instability, urinary incontinence, and cognit hayden decline suggestive of normal pressure hydrocephalus. 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 OR 03/29/19 Left INTELLECTUAL PROPERTY MANAGER shunt system placeme nt Mental / Cognitive [...] Reason for Visit: Follow up visit, Mindy/Worship: Pentecostal, Source of Purpose/Meaning: Patient is not told [...] to primary RN. Patient transported back to [facility]. Primary nurse un available. Nursing staff notified [...] is obtained and notify procedural physician and[facility]. 4. Elevate arm [...] NPH (normal pressure hydrocephalus) OR 03/29/19 Left INTELLECTUAL PROPERTY MANAGER shunt system placement Continue current care Plan [...] ASA 325 tomorrow. PT/OT-rehab planned at [facility] Pain control Prophylaxis: B) Lines: No C) Urinary Catheter: No D) Antibiotic Usage: No E) VTE: Mechanical prophylaxis; Sequential compression device SQ heparin F) Restraints: Patient assessed for need for restraints. Please call [phone] with any questions. Lora Castro APRN [phone] or Demetria ri * Yi Farris RN - 04/02/2019 10:23 [...] as able and indicated. Therapist: SAMMY Cole/Angely [id number] Date: 04/02/2019 * Lorna Liz - 04/01/2019 12:19 PM CDT OCCUPATIONAL THERAPY PROGRESS NOTE Patient Name: Estrada Godoy Room/Bed: NF3178/01 Admitting Diagnosis: Cerebral Aneurysm Mobility Progressive Mobility Level: Walk in hallway Distance Walked (feet): 350 ft Level of Assistance: Assist X1 Assistive Device: Walker Time Tolerated: 0-10 minutes Activity Limited By: Weakness Subjective Pertinent Dx per Physician: 84 y.o. male with PMHx significant for A.Fib on warf erin, CAD s/p CABG and multiple coronary stents, AAA who presents to [facility] with C C of roughly a year [...] Home Equipment: Walker;Cane Prior Function Level Of [place]: Needed assistance with functional transfers Lives With: [...] Solving: Decreased Judgment/Safety Attention: Awake/Alert Cognition Comment: AMBLER. Pt primarily reads lips to comprehend instruction. [...] All home functioning ADLs Therapist: SAMMY Cole/Angely [id number] Date: 04/01/2019 * Mara Murillo MD - [...] NPH (normal pressure hydrocephalus) OR 03/29/19 Left INTELLECTUAL PROPERTY MANAGER shunt system placement Continue current care Plan [...] assessed for need for restraints. Please call [phone] with any questions. Mara Murillo MD * [...] multiple coronary stents, AAA who presents to [facility] with CC of roughly a year worth of gait instability, urinary incontinence, and cognit hayden decline suggestive of normal pressure hydrocephalus. 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 OR 03/29/19 Left INTELLECTUAL PROPERTY MANAGER shunt system placeme nt Mental / Cognitive [...] NPH (normal pressure hydrocephalus) OR 03/29/19 Left INTELLECTUAL PROPERTY MANAGER shunt system placement Continue current care Dressing removed today, incision c/d/i Plan for repeat angio Tuesday, MRI tuesday Cardiology consutled - no need to bridge his anticoagulation post operatively; sage benjamin restart Warfarin 3 weeks post op PT/OT-rehab planned at [facility] Pain control Prophylaxis: A) GI: PPI B) Lines: No C) Urinary Catheter: No D) Antibiotic Usage: No E) VTE: Mechanical prophylaxis; Sequential compression device SQ tonight F) Restraints: Patient assessed for need for restraints. Please call [phone] with any questions. Mario Pereyra MD * Angelia Pitt RN - 03/31/2019 2:38 AM CDT Pt has been bradycardic into low 40s last two nights, has dropped to 39 bpm for 2-3 second intervals intermittently over the last half hour. Other VSS, asymptom atic, neurologically intact. On-call provider notified via Voalte. [facility]. 0254 On-call provider notified of above. No new orders at this time, per Dr. Gary avalos. [facility]. * Crystal Coombs RN - 03/30/2019 6:32 [...] PROGRESS & RE- ASSESSMENT NOTE Patient Name: sEtrada Godoy Room/Bed: [place] [address] Admitting Diagnosis: Cerebral Aneurysm Mobility Progressive Mobility Level: Walk in hallway Distance Walked (feet): 200 ft Level of Assistance: Assist X1 Assistive Device: None Time Tolerated: 11-30 minutes Activity Limited By: Weakness Subjective Pertinent Dx per Physician: 84 y.o. male with PMHx significant for A.Fib on warf erin, CAD s/p CABG and multiple coronary stents, AAA who presents to [facility] with C C of roughly a year [...] Home Equipment: Walker;Cane Prior Function Level Of [place]: Needed assistance with functional transfers Lives With: [...] All home functioning ADLs Therapist: SAMMY Cole/Angely [id number] Date: 03/30/2019 * Lora Castro APRN - [...] NPH (normal pressure hydrocephalus) OR 03/29/19 Left INTELLECTUAL PROPERTY MANAGER shunt system placement Continue current care NPO for IR diagnostic angio-follow up to giant basilar aneurysm, IR team working on timing of pre-medication for contrast allergy. Anticipate angio later today. Cardiology consutled - no need to bridge his anticoagulation post operatively; sage benjamin restart Warfarin 3 weeks post op PT/OT-rehab planned at [facility]-will accept on Tuesday if medially ready Pain control Prophylaxis: A) GI: PPI B) Lines: No C) Urinary Catheter: No D) Antibiotic Usage: No E) VTE: Mechanical prophylaxis; Sequential compression device No anticoagulatio n until 48 hours post operative; contraindication due to bleeding risk F) Restraints: Patient assessed for need for restraints. Please call [phone] with any questions. Lora Castro APRN Pager [phone] or Voalte * Meghana Buckner, PT - 03/30/2019 10:09 AM CDT PHYSICAL THERAPY RE-EVALUATION / PROGRESS NOTE MOBILITY: Progressive Mobility Level: Walk in hallway Distance Walked (feet): 200 ft Level of Assistance: Assist X1 Assistive Device: None Time Tolerated: 11-30 minutes Activity Limited By: Weakness SUBJECTIVE: Significant hospital events: 84 y.o. male with PMHx significant for A.Fib on [facility], CAD s/p CABG and multiple coronary stents, AAA who presents to [facility] with CC of roughly a year worth of gait instability, urinary incontinence, and cognit hayden decline suggestive of normal pressure hydrocephalus. 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 OR 03/29/19 Left INTELLECTUAL PROPERTY MANAGER shunt system placeme nt. Mental / Cognitive [...] a 84 y.o. male admitted to [facility] on 03/26/2019 with the following issues: Normal [...] disciplines and medical complexity to warrant acute inok tient rehabilitation admission candidacy. Goals & Barriers [...] day: Aniyah De La Rosa DO Pager [phone] Subjective 84 y.o.malewith PMHx significant for A.Fib on warfarin, CAD s/p CABG and mul tiple coronary stents, AAA who presents to [facility] with CC of roughly a year worth of gait instability, urinary incontinence, and cognitive decline suggestive of n ormal pressure hydrocephalus. Of note patient has recently discovered large basi lar aneurysm. 03/29 INTELLECTUAL PROPERTY MANAGER shunt placed by Gus. Post-operative RR called [...] Labs Reviewed. [place] De La Rosa, Pager [phone] Associated attestation - Jesus Howell MD - [...] asymptomatic. Pt easily rouses, neurologicall y intact. WEIGHT COUNT OPERATOR Lora Castro notified of above. No new [...] RN called and rapid response. Refer to SCIENTIFIC PROCESS OPERATOR not e for further details. * Merline Meneses RN - 03/29/2019 3:02 PM CDT Pt transported back to inpatient room via bed on senior agricultural assistant by RN and HCT . * Lora [...] PT/OT Pain control Rehab consulted Plan for INTELLECTUAL PROPERTY MANAGER shunt placement today, needs this placed prior [...] assessed for need for restraints. Please call [phone] with any questions. Lora Castro APRN Pager [phone] or Voalte * Rachelle Aly RN - 03/29/2019 11:56 AM CDT CPAP in locker 49. #[phone] * Cristofer Greenfield - 03/29/2019 9:53 AM CDT Reason for Visit: Follow up visit, Mindy/Worship: Pentecostal, Source of Purpose/Meaning: Patient is getting ready [...] 03/28 evening New Events or Follow-up: Pt INTELLECTUAL PROPERTY MANAGER shunt placement today. Type and cross completed. [...] for Visit: Request from his daughter, Mindy/Worship: Pentecostal, Source of Purpose/Meaning: Patient is well supported [...] multiple coronary stents, AAA who presents to [facility] with CC of roughly a year worth [...] PROGRESS NOTE Patient Name: Estrada Godoy Room/Bed: YT4726/01 Admitting Diagnosis: Cerebral Aneurysm Mobility Progressive Mobility Level: Walk laps Distance Walked (feet): 620 ft Level of Assistance: Assist X1 Assistive Device: Walker Time Tolerated: 11-30 minutes Activity Limited By: Weakness Subjective Pertinent Dx per Physician: 84 y.o. male with PMHx significant for A.Fib on warf erin, CAD s/p CABG and multiple coronary stents, AAA who presents to [facility] with C C of roughly a year [...] Home Equipment: Walker;Cane Prior Function Level Of [place]: Needed assistance with functional transfers Lives With: [...] Solving: Decreased Judgment/Safety Attention: Awake/Alert Cognition Comment: AMBLER. Poor insight into deficits. Assessment Assessment: Decreased [...] mobility with outpatient therapy. Therapist: YOLANDA Goins/Angely [id number] Date: 03/28/2019 * Valery Mccall APRN - [...] PT/OT Pain control Rehab consulted Plan for INTELLECTUAL PROPERTY MANAGER shunt placement on tomorrow Prophylaxis: A) GI: PPI B) Lines: No C) Urinary Catheter: No D) Antibiotic Usage: No E) VTE: Mechanical prophylaxis; Sequential compression device F) Restraints: Patient assessed for need for restraints. Please call [phone] with any questions. Valery Mccall APRN Pager [phone] or Voalte * Arsh Alvarez MD - [...] PT/OT Pain control Rehab consulted Plan for INTELLECTUAL PROPERTY MANAGER shunt placement on March 29. Prophylaxis: A) GI: PPI B) Lines: No C) Urinary Catheter: No D) Antibiotic Usage: No E) VTE: Mechanical prophylaxis; Sequential compression device F) Restraints: Patient assessed for need for restraints. Please call [phone] with any questions. Valery Mccall APRN Pager [phone] or Voalte * Meghana Clarke - 03/27/2019 [...] multiple coronary stents, AAA who presents to [facility] with CC of roughly a year worth [...] ischemic complications for surgery. Low risk for PR 4. Normal pressure hydrocephalus/ Basal aneurism. -Anticipated INTELLECTUAL PROPERTY MANAGER shunt soon -Followed by treatment of aneurysm [...] regarding different doctors (provided by patient's ). Sales Engagement Manager 1999 - 2018 Dr. Christian Campa : [phone] DEANN Goff : [phone] (May contact to receive information regarding Dr. Campa, or to help get ahold of him.) PCP Dr. Lesley Butcher : [phone] Dr. Chase Kaur : [phone] (Facilitated last heart catheretization in Jan.) [facility] - Dr. Bhavin Delcid : Phone/ . (Hear t monitor for afib.) [facility] Cardiology Dr. Bonds : [phone] : [address], [place] (chemical Stress Test, Echo.) RN filled out Obtain Information forms for Natasha Linn, Romina Bonds to obtain the specified records. Will fax records request tomorrow when their offices are open. * Jacob Cruzne, OT - 03/26/2019 3:14 PM CDT OCCUPATIONAL THERAPY ASSESSMENT NOTE Patient Name: Estrada Godoy Room/Bed: [id number] Admitting Diagnosis: Cerebral Aneurysm Mobility Progressive Mobility Level: Walk in hallway Distance Walked (feet): 200 ft Level of Assistance: Assist X1 Assistive Device: Walker Time Tolerated: 11-30 minutes Activity Limited By: Weakness;Fatigue Subjective Pertinent Dx per Physician: 84 y.o. male with PMHx significant for A.Fib on warf erin, CAD s/p CABG and multiple coronary stents, AAA who presents to [facility] with C C of roughly a year [...] Home Equipment: Walker;Cane Prior Function Level Of [place]: Needed assistance with functional transfers Lives With: [...] in Multiple Plane s Cognition Cognition Comment: AMBLER. Poor insight into deficits. UE AROM Overall [...] home functioning ADLs Therapist: Mira Cruz OTR/Angely [id number] Date: 03/26/2019 * Paris Elizondo, PT - [...] multiple coronary stents, AAA who presents to [facility] with CC of roughly a year worth [...] medicine consult Therapist: Paris Elizondo PT, DPT, [facility] Date: 03/27/2019 * Kelin Mills RN - 03/26/2019 12:46 PM CDT Pt's says that he takes 40mg Celexa daily. Only 10 mg is currently ordered. MD notified. * Kelin Mills RN - 03/26/2019 11:51 AM CDT Pt admitted onto unit accompanied by transport at 1150. Patient transferred to [facility] bed from [facility] with minimal assistance. Pt tolerated without [...] this encounter H&P Notes * Lorna Salter, MSN,SURFACE PLATE INSPECTOR - 04/02/2019 10:14 AM CDT Pre Procedure [...] Patient pre-medicated for contrast allergy. Lorna Salter, MSN,SURFACE PLATE INSPECTOR Pager [phone] * Ton Weber MD - 03/26/2019 12:54 [...] multiple coronary stents, AAA who presents to [facility] with CC of roughly a year worth [...] as well as AC plan -Plan for INTELLECTUAL PROPERTY MANAGER shunt once medically optimized -Consideration for treatment [...] coronary stents, AAA who present s to [facility] with complaints of roughly one years worth [...] part of a recommendation by ashley pierce bulk tank driver which brought to attention the giant basilar [...] L8614) performed by Yung Moreno MD at [facility] OR/Per iop TISSUE TRANSFER Right 11/03/2018 ADJACENT TISSUE TRANSFER PEDICLE FLAP (THINNING OF SCALP ABOVE MAGNET) performe d by Yung Moreno MD at [facility] OR/Periop CORONARY ANGIOPLASTY x5 HX HEART [...] has been reviewed and added onto the [place] IR schedule for today. - For sedation purposes, please keep NPO prior to procedure. We appreciate being able to participate in this patient's care. Please page with any questions or concerns. Elli Hyde APRN Pgr [phone] IR Team Pager [phone] (After-hours and Weekends) Procedure Date: 03/30/2019 Procedure: cerebral/carotid arteriogram IR Pre Procedure Notes: Will pre-med with IV benadryl and IV hydrocortisone. me thompson signed and held, consent at desk Chief Complaint: Basilar aneurysm Previous Anesthetic/Sedation History: Reviewed. History of present illness: Estrada Godoy is a 84 y.o. male patient with left INTELLECTUAL PROPERTY MANAGER shunt in placed [facility] (03/29). Pt states he is doing [...] : 1935 Primary Insurance: MEDICARE Secondary Insurance: [facility] Financial Class: Medicare Date of Admission: 03/26/2019 Referring Physician: Ton Weber MD Reason for Consult: evaluate for Post-Acute Rehab/Placement Precautions: Fall Weight bearing Precautions: WBAT Active Problems NPH Impaired mobility and adl Gait ataxia Urinary incontinence Cognitive impairment Assessment & Plan Estrada Godoy is a 84 y.o. male admitted to [facility] on 03/26/2019 with the following issues: Normal [...] disciplines and medical complexity [facility]. However, patient remains [...] has worked with PT and OT after INTELLECTUAL PROPERTY MANAGER plac ement on March 29 [place] De La Rosa DO Rehab Consult Pager: [phone] History of Present Illness 84 y.o. male with PMHx significant for A.Fib on warfarin, CAD s/p CABG and mult iple coronary stents, AAA who presents to [facility] with CC of roughly a year worth [...] L8614) performed by Yung Moreno MD at [facility] OR/Per iop TISSUE TRANSFER Right 11/03/2018 ADJACENT TISSUE TRANSFER PEDICLE FLAP (THINNING OF SCALP ABOVE MAGNET) performe d by Yung Moreno MD at [facility] OR/Periop CORONARY ANGIOPLASTY x5 HX HEART [...] (03/26/2019 4:00 PM) Support System: Lives in [place], [place] in home with 3 steps. Will have 24 hour support at [facility] emergency department. Current Level of Function Physical [...] in Multiple Plane s Cognition Cognition Comment: AMBLER. Poor insight into deficits. Review of Systems [...] symptoms suggesting or a h/o recen t PR or symptoms of angina, new or worsening [...] was consulted for recomme ndations. --EKG showed LA prolongation of 230, prolonged QT at 520, [...] --cardiology following with primary team --plan for INTELLECTUAL PROPERTY MANAGER shunt on March 29. Thank you for the consult. Will sign off at this time. If the primary service needs further assistance, the service should page [phone] (24 hours a day/7 days a week) to discuss the case. Nguyen Hayes MD Consult pager [phone] Subjective: Estrada Godoy is a 84 y.o. [...] 3. Normal pressure hydrocephalus/ Basal aneurism. 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 Patient has had progressive dementia and gait disturbance and urinary incontinen ce. He was diagnosed with normal pressure hydrocephalus and transferred to [facility] f or evaluation. 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 He was tra nsferred to for insertion of INTELLECTUAL PROPERTY MANAGER shunt and then ultimately treatment of his an eurysm on this will need to be delayed until he has recovered from his INTELLECTUAL PROPERTY MANAGER shunt He has a long history of coronary disease. He initially presented with fatigue sleepiness and lack of energy. Ultimately a red hat linux engineer in [place] performed a n angiogram and placed a [...] progressive weakness that he met that heralded [facility] need for another stent. His last [...] symptoms suggesting or a h/o recen t PR or symptoms of angina, new or worsening or decompensated CHF, significant a rrythmias, h/o aortic stenosis or mitral stenosis or other severe valvular dx. H e denies clinical predictors including h/o CVA, CHF, DM, or renal failure. He d oes have a significant hx severe CAD and poor functional status at this time. Plan: --EKG shows LA prolongation of 230, prolonged QT at 520, no ST/TW changes to sug gest ischemia, rate 55 --will attempt to obtain records of last LHC, stress, ECHO, prior imaging of ane ursyms and last progress note from the pt's red hat linux engineer Dr Vanegas (phone [phone]) --keep on tele --hold warfarin --start heparin drip for AC pre-operatively --recommend consulting our cardiology team given the multiple cardiac issues the pt has, his EKG abnormalities and the high-risk surgery pt is about to undergo Thank you for the consult. . Note: All patient care calls should be directed fi rst to the primary service. If the primary service needs further assistance, [facility] service should page [phone] (24 hours a day/7 days a week) to discuss the case. 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 Mr. Godoy' daughter and plan to transport [...] Planning Pt's family to transport pt to [place] today by 9:00a [facility]:(Clinically accepted) [address] [place] [address] (M-F) / [phone] (S-S) [phone] ? Medication Needs ? Financial ? Legal [...] selected for the patient. Cher Price LMSW *[phone] * Care Coordination-Inpatient - Allison Stockton RN - 04/03/2019 1:16 PM CDT Estrada Godoy NPH (normal pressure hydrocephalus) with Left ventriculoperitoneal shunt placeme nt on 03/29/[address] Weber. Codman valve @ 5. Neurosurgery Discharge Instructions Contact information: ? Please feel free to call Neurosurgery at any time if you have questions or are experiencing problems at discharge [phone]. Post-operative wound care: ? Your head incision [...] 11:15, CT head w/o contrast @ [facility], prior to appointment. ? 04/12/19 @ [...] Stockton RN Clinical Nurse Coordinator Neurosurgery Office: [phone] * Case Mgmt DC Plan - Cher [...] on Dwight morning to transport p t [place] ? Info or Referral ? Discharge Planning Depending on imaging today, pt should be able to d/c tomorrow. PT and OT have s een pt today, and his family would be available to transport pt, once he is medi sterling cleared to d/c. Pt has been cleared to d/c to [facility]; pt's family anxious to leave this afternoon and Dr. Weber is okay with having them d/c to IPR; however, Via jc expressing that it is too late in the day. Family prepared to get on the road as early as possible tomorrow. SW notified t he team that they wish to leave by 9:00a tomorrow 04/04/19, with family transport . [facility]: (Clinically accepted) [address] [place] [address] (M-F) / [phone] (S-S) [phone] ? Medication Needs ? Financial ? Legal [...] selected for the patient. Cher Price LMSW *[phone] * Case Mgmt DC Plan - Cher Price - 04/01/2019 10:20 AM CDT Weekend SW attempted to prepare pt and family to d/c to [facility]; however, primary t eam stating that they have additional imaging that he is scheduled for, for shilpa . Pt will not d/c today. SW will notify [place] [facility] of pt's disposi tion. -Cher Price LMSW *[phone] * Procedures (Immed Post or Bedside) - Niall Donovan MD - 03/30/2019 5:22 PM CDT Immediate Post Procedure Note 03/30/19 Attending Physician: Ton Weber MD Upholstery Auto Trimmer(s): Niall Donovan MD Procedure(s): Dx angiogram Indications: [...] the day for possible d/c to IPR. [place] [facility], has clinically accepted pt, but cannot accept after 4 :00 today. [facility] is able to admit on Tuesday04/01/19, however. SW has spoken with the family, who will be available to transport on Tuesday, and are agreeable to this plan. Interventions ? Support Pt's and 2 adult daughters plan to be here on Tuesday morning to transport [facility]. ? Info or Referral ? Discharge Planning Weekend SW to call the rn relief charge to verify when pt is to d/c (anytime Tuesday) is appropriate, if team is agreeable. Family ( and two adult daughter) to provide transportation. Weekend SW/Bedside RN: knife grinder: [phone] Dr. Fernandez: [phone] Orders [facility]: (Clinically accepted) [address] [place] [address] ? Medication Needs ? Financial ? Legal [...] been selected for the patient. Cher Price, [facility] *[phone] * Response Teams - Juan C Dempsey RN - 03/29/2019 6:46 PM CDT SCIENTIFIC PROCESS OPERATOR Follow up @ 1845: The patient is [...] for this patient on 03/29/19 at 1639. SCIENTIFIC PROCESS OPERATOR called to bedside for concern of patient having staring episodes and delayed responses. Family at bedside reporting patient confused. Upon SCIENTIFIC PROCESS OPERATOR arrival patie nt A&Ox3, which is patient's baseline per report. Neurosurgery at bedside to assess patient. Patient moves all extremities equally and family reports his confusion has improved. Glucose 141. Patient to have post operative CT head completed. SCIENTIFIC PROCESS OPERATOR to follow up in approximately 2 hours [...] completion of the case. Please see n [facility] dictation for all other portions of the case. Dr. Germain was present and actively participating throughout the entirety of the procedure. Estimated Blood Loss: 1cc. Specimen(s) Removed/Disposition: * No specimens in log * Ritu Palma MD Pager [phone] * Operative Report (Direct Entry) - Paris Whiting MD - 03/29/2019 12:51 PM CDT NEUROSURGERY OPERATIVE REPORT [facility] [address]. [place], [place] [address] PATIENT NAME: Estrada Godoy MR#/PT#: [id number] DATE: 1935 DATE OF OPERATION: 03/29/19 SURGEON: Ton Weber MD CO-SURGEON: Abdi Germain MD DJANGO DEVELOPER(S): Mario Pereyra MD Jack, Megan, MD PREOPERATIVE [...] The head was placed in a horseshoe hogshead mat inspector. The hair was clipped near Sridevi's point [...] site of the planned b urrhole. The program architect was used to make a burrhole. A [...] opening pressure was measured at 10. A m0um0uman Certas valve was previously set at 5. [...] so that pt can d/c to [facility] in [place]. Mr. Godoy has been clinically accepted to [facility]; family is able to tra nsport, [...] car with family vs w/c transportation. [facility]: (Clinically accepted) [address] [place] [address] (M-F) / [phone] (S-S) [phone] ? Medication Needs ? Financial ? Legal [...] been selected for the patient. Cher Price, [facility] *[phone] * Care Plan - Alie Joya, RN [...] Kiley Girard - 03/28/2019 10:46 AM CDT MACHINE FEEDER FLOORPERSON Note: Sent referral to [facility] IPR per the request of [facility] Cher Price. Kiley Girard Locks Tender For additional assistance, please contact [facility] Cher Price [phone] * Case Mgmt DC Plan - Cher [...] car with family vs w/c transportation. [facility]: [address] [place] [address] (M-F) / [phone] (S-S) [phone] ? Medication Needs ? Financial ? Legal [...] selected for the patient. Cher Price, GERMAINE *[phone] * Case Mgmt DC Plan - Jannie [...] is able to transition back to the [facility]'s primary care physician. Pt's pt was needing more assistance at home prior to admission, specificall y with getting up and down from sitting. Pt has a history of IPR at [facility] in [place], but denies any further needs at this time. Pt to OR tomorrow. Pr imary SW and RNCM to follow for discharge planning. Patient Address/Phone [address] [phone] (home) Emergency Contact Extended Emergency Contact Information Primary Emergency Contact: Lindsay Godoy [facility] Mobile Relation: Spouse Secondary Emergency Contact: Dori Can Mobile Relation: Daughter Preferred language: [place] Dredging Inspector needed? No Healthcare Directive Healthcare Directive: Yes, patient has a healthcare directive Type of Healthcare Directive: Durable power of personal injury attorney for healthcare Location of Healthcare Directive: [...] Source of Income Source Of Income: Other shelter income ? Financial Assistance Needed? n/a Psychosocial Needs ? Mental Health Mental Health History: No ? Substance Use History Substance Use History Screen: No ? Other none Current/Previous Services ? PCP Lesley Butcher, , ? Pharmacy [place] [address] [address] ? Durable Medical Equipment Durable Medical Equipment [...] ? Outpatient Therapy PT: No OT: No SOFTWARE TOOLS DEVELOPER: No ? Retirement Facility/Jail SNF: No NH: No ? Inpatient Rehab IPR: In the past Name of Facility: [facility] Would patient return for future services?: Yes ? Long-Term Acute Care Hospital LTACH: No ? Acute Hospital Stay Acute Hospital Stay: In the past Was patient's stay within the last 30 days?: No Jannie Lugo LMSW, AMELIE Baby Formula Worker Pager: [phone] * Care Plan - Radha Bazan RN [...] imaging of the head was performed. 3D nbuq-qe-nybiabpbekzp of the osage of Josue was performed prior to and [...] placed over the indwelling right-sided cochlear implant mathematician/stimulator and implanted fixation magnetic by Dr. Whiting [...] imaging of the head was performed. 3D whcp-jx-fcnhwt images of the osage of Josue was performed prior to and [...] placed over the indwelling right-sided cochlear implant mathematician/stimulator and implanted fixation magnetic by Dr. Whiting [...] imaging of the head was performed. 3D osjs-iv-fvsbdhhgcaay of the osage of Josue was performed prior to and following the administration of MultiHance. MRA maximum intensity projection images were obtained of the brain with image postprocessing. COMPARISON: CT head dated March 29, 2019. Cerebral angiography dated April 02, 2019. FINDINGS: Dr. Scto Rosen M.D. has personally reviewed these images and formulated the interpretations and opinions expressed in this report. Head wrap was placed over the indwelling right-sided cochlear implant mathematician/stimulator and implanted fixation magnetic by Dr. Whiting [...] imaging of the head was performed. 3D yhar-yz-xpphou images of the osage of Josue was performed prior to and [...] placed over the indwelling right-sided cochlear implant mathematician/stimulator and implanted fixation magnetic by Dr. Whiting [...] suite for transradial approach under general anesthesia. WET PROCESS ASSISTANT HEAD MILLER. Gus DJANGO DEVELOPER. None ANESTHESIA. General PROCEDURE. Ultrasound guided radial [...] Heparin ~70 units/kg was administered intravenously. A 5-Spanish [employer]ing Block-2 or Block-3 diagnostic catheter was introduced [...] angiography of the above named vessels. The TerumIndexing TR radial armband was applied and inflated [...] pathology. The branching superior cerebellar and RETAIL LOAN ORIGINATOR ASSISTANT vessels appear within normal limits. Compared to [...] suite for transradial approach under general anesthesia. WET PROCESS ASSISTANT HEAD MILLER. Gus DJANGO DEVELOPER. None ANESTHESIA. General PROCEDURE. Ultrasound guided radial [...] Heparin ~70 units/kg was administered intravenously. A 5-Spanish Terumo Block-2 or Block-3 diagnostic catheter was [...] pathology. The branching superior cerebellar and RETAIL LOAN ORIGINATOR ASSISTANT vessels appear within normal limits. Compared to [...] on 04/13/2019 10:54 AM. Performing Organization Address City/[facility] Phone Number RAD RESULTS * TYPE & CROSSMATCH (04/02/2019 10:46 AM CDT) Units Ordered 0 MAIN LAB Crossmatch 04/05/2019 MAIN LAB Expires Record Check FOUND MAIN LAB ABO/RH(D) O POS MAIN LAB Antibody Screen NEG MAIN LAB Electronic YES MAIN LAB Crossmatch Specimen Blood Performing Organization Address [facility] Phone Number MAIN LAB [address] [place] [address] * CBC AND DIFF (04/01/2019 4:28 AM [...] Basophil Count Specimen Blood Performing Organization Address City/[facility] Phone Number MAIN LAB [address] [place] [address] * BASIC METABOLIC PANEL (04/01/2019 4:28 AM CDT) Pathologist [facility] Sodium 139 137 - 147 MMOL/L K[facility] [...] (L) >60 mL/min [facility] MAIN LAB Comment: [place] The eGFR is not validated for use in drug dosing adjustments.Continue to use estimated creatinine clearance per dosing reference text.Please contact the Clinical Pharmacist for questions. eGFR >60 >60 mL/min [facility] MAIN LAB [place] Comment: The eGFR is not validated for use in drug dosing adjustments.Continue to use estimated creatinine clearance per dosing reference text.Please contact the Clinical Pharmacist for questions. Specimen Blood Performing Organization Address City/State/Zipcode Phone Number MAIN LAB [address] [place] [address] * CBC AND DIFF (03/31/2019 4:00 AM CDT) [facility] White Blood 7.4 4.5 - 11.0 [...] Basophil Count Specimen Blood Performing Organization Address City/[facility]/Zipcode Phone Number MAIN LAB [address] [place] [address] * BASIC METABOLIC PANEL (03/31/2019 4:00 AM [...] >60 >60 mL/min [facility] MAIN LAB Comment: [place] The eGFR is not validated for use in drug dosing adjustments.Continue to use estimated creatinine clearance per dosing reference text.Please contact the Clinical Pharmacist for questions. eGFR >60 >60 mL/min [facility] MAIN LAB [place] Comment: The eGFR is not validated for use in drug dosing adjustments.Continue to use estimated creatinine clearance per dosing reference text.Please contact the Clinical Pharmacist for questions. Specimen Blood Performing Organization Address City/[facility] Phone Number MAIN LAB [address] [place] [address] * IR ARTERIOGRAM NEURO (03/30/2019 4:26 PM [...] brought the angiography suite for formal evaluation. WET PROCESS ASSISTANT HEAD MILLER. Gus DJANGO DEVELOPER. Niall Donovan, PGY 7 ANESTHESIA. Local with [...] insure maintain an air free system. A 5-Spanish diagnostic catheter was introduced through the sheath.Utilizing a combination of roadmap, guidewire and direct catheter access techniques, a 5 Spanish diagnostic catheter was used to perform diagnostic [...] brought the angiography suite for formal evaluation. WET PROCESS ASSISTANT HEAD MILLER. Gus DJANGO DEVELOPER. Niall Donovan, PGY 7 ANESTHESIA. Local with [...] insure maintain an air free system. A 5-Spanish diagnostic catheter was introduced through the sheath. Utilizing a combination of roadmap, guidewire and direct catheter access techniques, a 5 Spanish diagnostic catheter was used to perform diagnostic [...] Basophil Count Specimen Blood Performing Organization Address City/[facility] Phone Number MAIN LAB [address] [place] [address] * BASIC METABOLIC PANEL (03/30/2019 4:25 AM [...] >60 >60 mL/min [facility] MAIN LAB Comment: [place] The eGFR is not validated for use in drug dosing adjustments.Continue to use estimated creatinine clearance per dosing reference text.Please contact the Clinical Pharmacist for questions. eGFR >60 >60 mL/min [facility] MAIN LAB [place] Comment: The eGFR is not validated for use in drug dosing adjustments.Continue to use estimated creatinine clearance per dosing reference text.Please contact the Clinical Pharmacist for questions. Specimen Blood Performing Organization Address City/[facility] Phone Number [facility] MAIN LAB [address] [place] [address] * C SPINE 3 VIEWS OR LESS [...] PM CDT) Specimen Impressions Performed At 1.Intact INTELLECTUAL PROPERTY MANAGER shunt tubing without kink or fracture. [facility] [...] pneumothorax, or lobar consolidation. IMPRESSION 1. Intact INTELLECTUAL PROPERTY MANAGER shunt tubing without kink or fracture. 2. [...] Performed At Intact abdominal segment of the INTELLECTUAL PROPERTY MANAGER shunt catheter with no evidence of kinking [...] quadrant. IMPRESSION Intact abdominal segment of the INTELLECTUAL PROPERTY MANAGER shunt catheter with no evidence of kinking [...] on 03/30/2019 7:04 AM. Performing Organization Address [facility] Phone Number RAD RESULTS * POC GLUCOSE (03/29/2019 4:43 PM CDT) Pathologist [facility] Glucose, POC 141 (H) 70 - 100 MG/DL MAIN LAB Specimen Performing Organization Address [facility] Phone Number MAIN LAB [address] [place] [phone] * PROTIME INR (PT) (03/29/2019 7:28 AM CDT) [facility] INR 1.1 0.8 - 1.2 MAIN LAB Specimen Blood Performing Organization Address [facility] Phone Number MAIN LAB [address] [place] [phone] * CBC AND DIFF (03/29/2019 4:04 AM CDT) Pathologist [facility] White Blood 6.3 4.5 - 11.0 K/UL [...] Basophil Count Specimen Blood Performing Organization Address City/[facility]/Zipcode Phone Number MAIN LAB [address] [place] [address] * BASIC METABOLIC PANEL (03/29/2019 4:04 AM [...] 57 (L) >60 mL/min MAIN LAB Comment: [place] The eGFR is not validated for use in drug dosing adjustments.Continue to use estimated creatinine clearance per dosing reference text.Please contact the Clinical Pharmacist for questions. eGFR >60 >60 mL/min MAIN LAB [place] Comment: The eGFR is not validated for use in drug dosing adjustments.Continue to use estimated creatinine clearance per dosing reference text.Please contact the Clinical Pharmacist for questions. Specimen Blood Performing Organization Address City/[facility] Phone Number [facility] [address] [place] [address] * BLOOD TYPE CONFIRMATION - ORDER ONLY IF REQUESTED BY LAB (03/28/2019 8:48 PM CDT) ABO/RH(D) O POS MAIN LAB Specimen Blood Performing Organization Address City/[facility]/Zipcode Phone Number MAIN LAB [address] [place] [address] * TYPE & CROSSMATCH (03/28/2019 7:25 PM CDT) Units Ordered 2 MAIN LAB Crossmatch 03/31/2019 [facility] MAIN LAB Expires Record Check 2ND TYPE REQUIRED [facility] MAIN LAB ABO/RH(D) O POS [facility] MAIN LAB Antibody Screen NEG [facility] MAIN LAB Electronic YES MAIN LAB Crossmatch Specimen Blood Performing Organization Address City/[facility]/Zipcode Phone Number MAIN LAB [address] [place] [address] * CBC AND DIFF (03/28/2019 4:20 AM [...] Basophil Count Specimen Blood Performing Organization Address City/[facility]/Zipcode Phone Number MAIN LAB [address] [place] [address] * BASIC METABOLIC PANEL (03/28/2019 4:20 AM [...] >60 >60 mL/min [facility] MAIN LAB Comment: [place] The eGFR is not validated for use in drug dosing adjustments.Continue to use estimated creatinine clearance per dosing reference text.Please contact the Clinical Pharmacist for questions. eGFR >60 >60 mL/min [facility] MAIN LAB [place] Comment: The eGFR is not validated for use in drug dosing adjustments.Continue to use estimated creatinine clearance per dosing reference text.Please contact the Clinical Pharmacist for questions. Specimen Blood Performing Organization Address City/State/Zipcode Phone Number MAIN LAB [address] [place] [address] * 2-D + DOPPLER ECHOCARDIOGRAM (03/27/2019 10:35 [...] area= LAB AV index 0.85 OTHER OUTSIDE ([place]) LAB E/A ratio 0.80 OTHER OUTSIDE LAB LVOT area 2.72 cm2 OTHER OUTSIDE LAB LVOT stroke 70.10 cm3 OTHER OUTSIDE volume LAB TV rest 21 mmHg OTHER OUTSIDE pulmonary LAB artery pressure E/E' ratio 6.43 OTHER OUTSIDE LAB Left Atrium 16.09 16 - 34 OTHER OUTSIDE Index LAB Cardiology Siemens [id number] OTHER OUTSIDE Ultrasound LAB Machine Left Ventricle [...] City/State/Zipcode Phone Number [facility] MAIN LAB [address] [place] [address] * BASIC METABOLIC PANEL (03/27/2019 3:47 AM CDT) [facility] Sodium 138 137 - 147 MMOL/L [...] >60 >60 mL/min [facility] MAIN LAB Comment: [place] The eGFR is not validated for use in drug dosing adjustments.Continue to use estimated creatinine clearance per dosing reference text.Please contact the Clinical Pharmacist for questions. eGFR >60 >60 mL/min [facility] MAIN LAB [place] Comment: The eGFR is not validated for use in drug dosing adjustments.Continue to use estimated creatinine clearance per dosing reference text.Please contact the Clinical Pharmacist for questions. Specimen Blood Performing Organization Address City/State/Zipcode Phone Number MAIN LAB [address] [place] [address] * CBC AND DIFF (03/27/2019 3:47 AM CDT) Pathologist [facility] White Blood 6.5 4.5 - 11.0 K/UL [...] Basophil Count Specimen Blood Performing Organization Address City/[facility]/Zipcode Phone Number MAIN LAB [address] [place] [address] * BASIC METABOLIC PANEL (03/26/2019 1:12 PM [...] (L) >60 mL/min [facility] MAIN LAB Comment: [place] The eGFR is not validated for use in drug dosing adjustments.Continue to use estimated creatinine clearance per dosing reference text.Please contact the Clinical Pharmacist for questions. eGFR >60 >60 mL/min [facility] MAIN LAB [place] Comment: The eGFR is not validated for use in drug dosing adjustments.Continue to use estimated creatinine clearance per dosing reference text.Please contact the Clinical Pharmacist for questions. Specimen Blood Performing Organization Address City/[facility]/Zipcode Phone Number [facility] [address] [place] [address] * PTT (APTT) (03/26/2019 1:12 PM CDT) APTT 34.3 24.0 - 36.5 SEC MAIN LAB Specimen Blood Performing Organization Address City/[facility]/Zipcode Phone Number [facility] [address] [place] [address] * PROTIME INR (PT) (03/26/2019 1:12 PM CDT) INR 2.3 (H) 0.8 - 1.2 [facility] MAIN LAB Specimen Blood Performing Organization Address [facility] Phone Number MAIN LAB [address] [place] [phone] * CBC AND DIFF (03/26/2019 1:12 PM CDT) Pathologist [facility] White Blood 5.1 4.5 - 11.0 K/UL [...] Basophil Count Specimen Blood Performing Organization Address City/[facility]/Zipcode Phone Number MAIN LAB [address] [place] [phone] * TELEMETRY STRIPS-SCAN (03/26/2019 12:00 AM CDT) [...] Given 32 mg, Oral, ONCE, 1 dose, [place] 04/01/19 at 2100, 12 hours prior to [...]
--- OUTSIDE RECORDS SUMMARY | 2019-05-28 08:53 | XMS REPORT | Encounter Summary ---
Author Author [facility] Organization [facility] Address Unknown Phone Unavailable Care Team Providers Care Clamp Forklift Operator Name Role Phone Michael Velasquez MD Unavailable Lesley Butcher MD PCP Reason for Visit * Auth/Cert Referred By Contact Referred To Contact Status Reason Specialty Diagnoses / Procedures Diagnoses Cerebral Aneurysm Encounter Details Care Team Description Date Type Department Michael Vann, [place] [address] [place] [address] [phone] 04/02/2019 Anesthesia [facility] Radiology [address] [address] Anesthesia Record Responsible Anesthesiologist Anesthesia Start Time [...] Right; 5 FR; 04/02/19 1110 by Katja Farris Other (Comment) (intra-procedure temp Yi Pollock RN [...] Consent: consented Plan discussed with: anesthesiologist and SHOE REPAIRER APPRENTICE. documented in this encounter Plan of Treatment [...]
--- OUTSIDE RECORDS SUMMARY | 2019-05-28 08:53 | XMS REPORT | Encounter Summary ---
Author Author [facility] Organization [facility] Address Unknown Phone Unavailable Care Team Providers Care Marine Rigger Name Role Phone Michael Velasquez MD Unavailable Lesley Butcher MD PCP Reason for Referral * Radiology Services (Routine) Referred By Contact Referred To Contact Status Reason Specialty Diagnoses / Procedures Ton Weber MD [address] [facility] [address] [place] [address] [place] [address] No Auth Needed Radiology Diagnoses NPH (normal pressure hydrocephalus) S/P TRANSFORMATION CONSULTANT shunt P rocedures CT HEAD WO CONTRAST Encounter Details Care Team Description Date Type Department Ton Weber MD [address] [facility] [address] [place], [place] [id number] NPH (normal pressure hydrocephalus) (Primary Dx); S/P TRANSFORMATION CONSULTANT shunt 03/30/2019 Orders Only [facility] [address] [place] [id number] Social History Date Tobacco Use Types Packs/Day [...] RESULTS History: Normal pressure hydrocephalus. Status post TRANSFORMATION CONSULTANT shunt placement. Technique: Multiple contiguous axial images [...] head History: Normal pressure hydrocephalus. Status post TRANSFORMATION CONSULTANT shunt placement. 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
--- OUTSIDE RECORDS SUMMARY | 2019-05-28 08:54 | XMS REPORT | Encounter Summary ---
Author Author [facility] Organization [facility] Address Unknown Phone Unavailable Care Team Providers Care Skin Toggler Name Role Phone Michael Velasquez MD Unavailable Lesley Butcher MD PCP Reason for Visit * Auth/Cert Referred By Contact Referred To Contact Status Reason Specialty Diagnoses / Procedures Diagnoses Cerebral Aneurysm Encounter Details Care Team Description Date Type Department Ton Weber MD [address] Ortho[facility] Lvl [address] [place] [id number] [phone] CREATION SHUNT - VENTRICULO-PERITONEAL 03/29/2019 Surgery [facility] - [place] [facility] [place] [address] Social History Date Tobacco Use Types Packs/Day [...] coronary stents, AAA w ho presents to [facility] with complaints of roughly a [...] Reb Medicine consulted. 03/29: to OR for CLAY ARTIST shunt placement. 03/30: Doing well post operatively. [...] or concerns regarding your hospital stay, call [phone] Discharging attending physician: TON WEBER [[id number]] Regular Diet You have no dietary restriction. [...] CT HEAD W/O CONTRAST with CT - [facility] (JUNIOR [place]) [address] [facility] [address] Apr 12, 2019 1:30 PM CDT Post - Op with NEUROSURGERY [facility] (NeuroSurgery) [address] Level 2 Pod B [facility] [id number] Jul 19, 2019 1:00 PM CDT COCHLEAR INTERP with NELL Joseph [facility] (ENT) [address] Level 3 Pod C [facility] [id number] Pending items needing follow up: None [...] or concerns related to the procedu re,call [phone] for Tuesday-Tuesday 7-5. After-hours and weekends, lizeth hsieh [phone] and ask for the Interventional Nurse Educator alonzojarred linda * Additional Instructions* Allison Stockton RN - 03/30/2019 2:40 PM CDT Estrada Godoy NPH (normal pressure hydrocephalus) with Left ventriculoperitoneal shunt placeme nt on 03/29/[address] Weber Neurosurgery Discharge Instructions Contact information: ? Please feel free to call Neurosurgery at any time if you have questions or are experiencing problems at discharge [phone]. Post-operative wound care: ? Your head incision [...] @ 11:15, CT head w/o contrast @ [facility], prior to appointment. ? 04/12/19 @ 1:45 [...] Do not resume until discussed with Dr. Webre at your follow up appointment 04/04/2019 05/09/2019 [...] CDT Reason for Visit: Follow up visit, Mindy/Protestant: Amish catholci Source of Purpose/Meaning: making good progress, talking about moving to the nex t stage of care and planing to move to rehab facility in [facility] , his and katiuska griggs who support [...] NPH (normal pressure hydrocephalus) OR 03/29/19 Left CLAY ARTIST shunt system placement Continue current care PT/OT Pain control Discharge planning -- CM/SW invovlved;- IPR planned at [address] for this AM Prophylaxis: B) Lines: No C) Urinary Catheter: No D) Antibiotic Usage: No E) VTE: Pharmacological prophylaxis; SQ Heparin and Mechanical prophylaxis; Seq uential compression device F) Restraints: Patient assessed for need for restraints. Please call [phone] with any questions. Valery Mccall APRN [phone] or Demetria hope * Valery Mccall APRN [...] NPH (normal pressure hydrocephalus) OR 03/29/19 Left CLAY ARTIST shunt system placement Continue current care Plan [...] assessed for need for restraints. Please call [phone] with any questions. Valery Mccall APRN [id number] or Demetria me * Lorna Liz - 04/03/2019 9:15 AM CDT OCCUPATIONAL THERAPY PROGRESS NOTE Patient Name: Estrada Godoy Room/Bed: [place] [address] Admitting Diagnosis: Cerebral Aneurysm Mobility Progressive Mobility Level: Walk in hallway Distance Walked (feet): 380 ft Level of Assistance: Assist X1 Assistive Device: Hand Held Time Tolerated: 11-30 minutes Activity Limited By: Weakness Subjective Pertinent Dx per Physician: 84 y.o. male with PMHx significant for A.Fib on warf erin, CAD s/p CABG and multiple coronary stents, AAA who presents to [facility] with C C of roughly [...] Home Equipment: Walker;Cane Prior Function Level Of Maury: Needed assistance with functional transfers Lives With: [...] Stairs, Transfers, Toileting Therapist: Lorna Liz OTR/Angely [id number] Date: 04/03/2019 * Bryce Boyer, PT - [...] multiple coronary stents, AAA who presents to [facility] with CC of roughly a year worth of gait instability, urinary incontinence, and cognit hayden decline suggestive of normal pressure hydrocephalus. 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 OR 03/29/19 Left CLAY ARTIST shunt system placeme nt Mental / Cognitive [...] CDT Reason for Visit: Follow up visit, Mindy/Protestant: Amish, Source of Purpose/Meaning: Patient is not told [...] to primary RN. Patient transported back to [facility]. Primary nurse un available. Nursing staff [...] and notify procedural physician and[facility]. 4. Elevate arm [...] NPH (normal pressure hydrocephalus) OR 03/29/19 Left CLAY ARTIST shunt system placement Continue current care Plan [...] ASA 325 tomorrow. PT/OT-rehab planned at [facility] Pain control Prophylaxis: B) Lines: No C) Urinary Catheter: No D) Antibiotic Usage: No E) VTE: Mechanical prophylaxis; Sequential compression device SQ heparin F) Restraints: Patient assessed for need for restraints. Please call [phone] with any questions. Lora Castro APRN [phone] or Demetria nc * Yi Farris RN - 04/02/2019 10:23 AM CDT Anesthesia at bedside to maintain & monitor airway, medications, and vital signs. * Lorna Liz - 04/02/2019 10:20 AM CDT OCCUPATIONAL THERAPY NOTE OT and PT continuing to follow. Pt to IR for angiogram this morning. Will contin ue to follow to progress with therapy plan of care as able and indicated. Therapist: SAMMY Cole/Agnely [id number] Date: 04/02/2019 * Lorna Liz - 04/01/2019 12:19 PM CDT OCCUPATIONAL THERAPY PROGRESS NOTE Patient Name: Estrada Godoy Room/Bed: [id number]/01 Admitting Diagnosis: Cerebral Aneurysm Mobility Progressive Mobility Level: Walk in hallway Distance Walked (feet): 350 ft Level of Assistance: Assist X1 Assistive Device: Walker Time Tolerated: 0-10 minutes Activity Limited By: Weakness Subjective Pertinent Dx per Physician: 84 y.o. male with PMHx significant for A.Fib on warf erin, CAD s/p CABG and multiple coronary stents, AAA who presents to [facility] with C C of roughly [...] Home Equipment: Walker;Cane Prior Function Level Of Maury: Needed assistance with functional transfers Lives With: [...] Solving: Decreased Judgment/Safety Attention: Awake/Alert Cognition Comment: [place]. Pt primarily reads lips to comprehend instruction. [...] All home functioning ADLs Therapist: SAMMY Cole/Angely [id number] Date: 04/01/2019 * Mara Murillo MD - [...] NPH (normal pressure hydrocephalus) OR 03/29/19 Left CLAY ARTIST shunt system placement Continue current care Plan [...] assessed for need for restraints. Please call [phone] with any questions. Mara Murillo MD * [...] multiple coronary stents, AAA who presents to [facility] with CC of roughly a year worth of gait instability, urinary incontinence, and cognit hayden decline suggestive of normal pressure hydrocephalus. 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 OR 03/29/19 Left CLAY ARTIST shunt system placeme nt Mental / Cognitive [...] NPH (normal pressure hydrocephalus) OR 03/29/19 Left CLAY ARTIST shunt system placement Continue current care Dressing removed today, incision c/d/i Plan for repeat angio Tuesday, MRI tuesday Cardiology consutled - no need to bridge his anticoagulation post operatively; sage benjamin restart Warfarin 3 weeks post op PT/OT-rehab planned at [facility] Pain control Prophylaxis: A) GI: PPI B) Lines: No C) Urinary Catheter: No D) Antibiotic Usage: No E) VTE: Mechanical prophylaxis; Sequential compression device SQ tonight F) Restraints: Patient assessed for need for restraints. Please call [phone] with any questions. Mario Pereyra MD * Angelia Pitt RN - 03/31/2019 2:38 AM CDT Pt has been bradycardic into low 40s last two nights, has dropped to 39 bpm for 2-3 second intervals intermittently over the last half hour. Other VSS, asymptom atic, neurologically intact. On-call provider notified via Voalte. [facility]. [phone] On-call provider notified of above. No new orders at this time, per Dr. Gary avalos. [facility]. * Crystal Coombs RN - 03/30/2019 6:32 [...] ASSESSMENT NOTE Patient Name: Estrada Godoy Room/Bed: [place] [address] Admitting Diagnosis: Cerebral Aneurysm Mobility Progressive Mobility Level: Walk in hallway Distance Walked (feet): 200 ft Level of Assistance: Assist X1 Assistive Device: None Time Tolerated: 11-30 minutes Activity Limited By: Weakness Subjective Pertinent Dx per Physician: 84 y.o. male with PMHx significant for A.Fib on warf erin, CAD s/p CABG and multiple coronary stents, AAA who presents to [facility] with C C of roughly [...] Home Equipment: Walker;Cane Prior Function Level Of Maury: Needed assistance with functional transfers Lives With: [...] All home functioning ADLs Therapist: SAMMY Cole/Angely [id number] Date: 03/30/2019 * Lora Castro APRN - [...] NPH (normal pressure hydrocephalus) OR 03/29/19 Left CLAY ARTIST shunt system placement Continue current care NPO for IR diagnostic angio-follow up to giant basilar aneurysm, IR team working on timing of pre-medication for contrast allergy. Anticipate angio later today. Cardiology consutled - no need to bridge his anticoagulation post operatively; sage benjamin restart Warfarin 3 weeks post op PT/OT-rehab planned at [facility]-will accept on Tuesday if medially ready Pain control Prophylaxis: A) GI: PPI B) Lines: No C) Urinary Catheter: No D) Antibiotic Usage: No E) VTE: Mechanical prophylaxis; Sequential compression device No anticoagulatio n until 48 hours post operative; contraindication due to bleeding risk F) Restraints: Patient assessed for need for restraints. Please call [phone] with any questions. Lora Castro APRN Pager [phone] or Voalte * Meghana Buckner, PT - 03/30/2019 10:09 AM CDT PHYSICAL THERAPY RE-EVALUATION / PROGRESS NOTE MOBILITY: Progressive Mobility Level: Walk in hallway Distance Walked (feet): 200 ft Level of Assistance: Assist X1 Assistive Device: None Time Tolerated: 11-30 minutes Activity Limited By: Weakness SUBJECTIVE: Significant hospital events: 84 y.o. male with PMHx significant for A.Fib on [facility], CAD s/p CABG and multiple coronary stents, AAA who presents to [facility] with CC of roughly a year worth of gait instability, urinary incontinence, and cognit hayden decline suggestive of normal pressure hydrocephalus. 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 OR 03/29/19 Left CLAY ARTIST shunt system placeme nt. Mental / Cognitive [...] a 84 y.o. male admitted to [facility] on 03/26/2019 with the following issues: Normal [...] disciplines and medical complexity to warrant acute inut tient rehabilitation admission candidacy. Goals & Barriers [...] day: Aniyah De La Rosa DO Pager [phone] Subjective 84 y.o.malewith PMHx significant for A.Fib on warfarin, CAD s/p CABG and mul tiple coronary stents, AAA who presents to [facility] with CC of roughly a year worth of gait instability, urinary incontinence, and cognitive decline suggestive of n ormal pressure hydrocephalus. Of note patient has recently discovered large basi lar aneurysm. 03/29 CLAY ARTIST shunt placed by Gus. Post-operative RR called [...] Labs Reviewed. Darwin De La Rosa, Pager [phone] Associated attestation - Jesus Howell MD - [...] asymptomatic. Pt easily rouses, neurologicall y intact. PULP DRIER FIRER Lora Castro notified of above. No new [...] RN called and rapid response. Refer to MEDICAL CHEMIST not e for further details. * Merline Meneses RN - 03/29/2019 3:02 PM CDT Pt transported back to inpatient room via bed on media monitor by RN and HCT . * Lora [...] PT/OT Pain control Rehab consulted Plan for CLAY ARTIST shunt placement today, needs this placed prior [...] assessed for need for restraints. Please call [phone] with any questions. Lora Castro APRN Pager [phone] or Voalte * Rachelle Aly RN - 03/29/2019 11:56 AM CDT CPAP in locker 49. #[phone] * Cristofer Greenfield - 03/29/2019 9:53 AM CDT Reason for Visit: Follow up visit, Mindy/Protestant: Amish, Source of Purpose/Meaning: Patient is getting ready [...] 03/28 evening New Events or Follow-up: Pt CLAY ARTIST shunt placement today. Type and cross completed. [...] Reason for Visit: Request from his daughter, Mindy/Protestant: Amish, Source of Purpose/Meaning: Patient is well supported [...] multiple coronary stents, AAA who presents to [facility] with CC of roughly a [...] PROGRESS NOTE Patient Name: Estrada Godoy Room/Bed: PZ1673/01 Admitting Diagnosis: Cerebral Aneurysm Mobility Progressive Mobility Level: Walk laps Distance Walked (feet): 620 ft Level of Assistance: Assist X1 Assistive Device: Walker Time Tolerated: 11-30 minutes Activity Limited By: Weakness Subjective Pertinent Dx per Physician: 84 y.o. male with PMHx significant for A.Fib on warf erin, CAD s/p CABG and multiple coronary stents, AAA who presents to [facility] with C C of roughly [...] Home Equipment: Walker;Cane Prior Function Level Of Maury: Needed assistance with functional transfers Lives With: [...] Solving: Decreased Judgment/Safety Attention: Awake/Alert Cognition Comment: [place]. Poor insight into deficits. Assessment Assessment: Decreased [...] mobility with outpatient therapy. Therapist: YOLANDA Goins/Angely [id number] Date: 03/28/2019 * Valery Mccall APRN - [...] PT/OT Pain control Rehab consulted Plan for CLAY ARTIST shunt placement on tomorrow Prophylaxis: A) GI: PPI B) Lines: No C) Urinary Catheter: No D) Antibiotic Usage: No E) VTE: Mechanical prophylaxis; Sequential compression device F) Restraints: Patient assessed for need for restraints. Please call [phone] with any questions. Valery Mccall APRN Pager [phone] or Voalte * Arsh Alvarez MD - [...] PT/OT Pain control Rehab consulted Plan for CLAY ARTIST shunt placement on March 29. Prophylaxis: A) GI: PPI B) Lines: No C) Urinary Catheter: No D) Antibiotic Usage: No E) VTE: Mechanical prophylaxis; Sequential compression device F) Restraints: Patient assessed for need for restraints. Please call [phone] with any questions. Valery Mccall APRN Pager [phone] or Voalte * Meghana Clarke - 03/27/2019 [...] multiple coronary stents, AAA who presents to [facility] with CC of roughly a [...] ischemic complications for surgery. Low risk for OK 4. Normal pressure hydrocephalus/ Basal aneurism. -Anticipated CLAY ARTIST shunt soon -Followed by treatment of aneurysm [...] regarding different doctors (provided by patient's ). Training And Development Assistant 1997 - 2018 Dr. Christian Campa : [phone] DEANN Goff : [phone] (May contact to receive information regarding Dr. Campa, or to help get ahold of him.) PCP Dr. Lesley Butcher : [phone] Dr. Chase Kaur : [phone] (Facilitated last heart catheretization in Jan.) [facility] - Dr. Bhavin Delcid : Phone/ . (Hear t monitor for afib.) [facility] Cardiology Dr. Bonds : [phone] : [address], [place] (chemical Stress Test, Echo.) RN filled out Obtain Information forms for Natasha Linn, Romina Bonds to obtain the specified records. Will fax records request tomorrow when their offices are open. * Jacob Cruzne, OT - 03/26/2019 3:14 PM CDT OCCUPATIONAL THERAPY ASSESSMENT NOTE Patient Name: Estrada Godoy Room/Bed: [id number] Admitting Diagnosis: Cerebral Aneurysm Mobility Progressive Mobility Level: Walk in hallway Distance Walked (feet): 200 ft Level of Assistance: Assist X1 Assistive Device: Walker Time Tolerated: 11-30 minutes Activity Limited By: Weakness;Fatigue Subjective Pertinent Dx per Physician: 84 y.o. male with PMHx significant for A.Fib on warf erin, CAD s/p CABG and multiple coronary stents, AAA who presents to [facility] with C C of roughly [...] Home Equipment: Walker;Cane Prior Function Level Of Maury: Needed assistance with functional transfers Lives With: [...] in Multiple Plane s Cognition Cognition Comment: [place]. Poor insight into deficits. UE AROM Overall [...] home functioning ADLs Therapist: Mira Cruz OTR/Angely [id number] Date: 03/26/2019 * Paris Elizondo, PT - [...] multiple coronary stents, AAA who presents to [facility] with CC of roughly a [...] medicine consult Therapist: Paris Elizondo PT, DPT, [facility] Date: 03/27/2019 * Kelin Mills RN - 03/26/2019 12:46 PM CDT Pt's says that he takes 40mg Celexa daily. Only 10 mg is currently ordered. MD notified. * Kelin Mills RN - 03/26/2019 11:51 AM CDT Pt admitted onto unit accompanied by transport at 1150. Patient transferred to [facility] bed from [facility] with minimal assistance. Pt tolerated without [...] this encounter H&P Notes * Lorna Salter, MSN,DRYING MACHINE RECEIVER - 04/02/2019 10:14 AM CDT Pre Procedure [...] Patient pre-medicated for contrast allergy. Lorna Salter, MSN,DRYING MACHINE RECEIVER Pager [phone] * Ton Weber MD - 03/26/2019 12:54 [...] multiple coronary stents, AAA who presents to [facility] with CC of roughly a [...] as well as AC plan -Plan for CLAY ARTIST shunt once medically optimized -Consideration for treatment [...] coronary stents, AAA who present s to [facility] with complaints of roughly one [...] part of a recommendation by ashley pierce echo technician which brought to attention the giant basilar [...] performed by Yung Moreno MD at [facility] OR/Per iop TISSUE TRANSFER Right 11/03/2018 ADJACENT TISSUE TRANSFER PEDICLE FLAP (THINNING OF SCALP ABOVE MAGNET) performe d by Yung Moreno MD at [facility] OR/Periop CORONARY ANGIOPLASTY x5 HX HEART [...] has been reviewed and added onto the [place] IR schedule for today. - For sedation purposes, please keep NPO prior to procedure. We appreciate being able to participate in this patient's care. Please page with any questions or concerns. Elli Hyde APRN Pgr [phone] IR Team Pager [phone] (After-hours and Weekends) Procedure Date: 03/30/2019 Procedure: cerebral/carotid arteriogram IR Pre Procedure Notes: Will pre-med with IV benadryl and IV hydrocortisone. me thompson signed and held, consent at desk Chief Complaint: Basilar aneurysm Previous Anesthetic/Sedation History: Reviewed. History of present illness: Estrada Godoy is a 84 y.o. male patient with left CLAY ARTIST shunt in placed [facility] (03/29). Pt states he is doing well [...] : 1935 Primary Insurance: MEDICARE Secondary Insurance: [facility] Financial Class: Medicare Date of Admission: 03/26/2019 Referring Physician: Ton Weber MD Reason for Consult: evaluate for Post-Acute Rehab/Placement Precautions: Fall Weight bearing Precautions: WBAT Active Problems NPH Impaired mobility and adl Gait ataxia Urinary incontinence Cognitive impairment Assessment & Plan Estrada Godoy is a 84 y.o. male admitted to [facility] on 03/26/2019 with the following issues: Normal [...] disciplines and medical complexity to warrant acute indetroit receiving hospital rehabilitation admission candidacy. However, patient remains [...] has worked with PT and OT after CLAY ARTIST plac ement on March 29 Darwin De La Rosa DO Rehab Consult Pager: [phone] History of Present Illness 84 y.o. male with PMHx significant for A.Fib on warfarin, CAD s/p CABG and mult iple coronary stents, AAA who presents to [facility] with CC of roughly a [...] performed by Yung Moreno MD at [facility] OR/Per iop TISSUE TRANSFER Right 11/03/2018 ADJACENT TISSUE TRANSFER PEDICLE FLAP (THINNING OF SCALP ABOVE MAGNET) performe d by Yung Moreno MD at [facility] OR/Periop CORONARY ANGIOPLASTY x5 HX HEART [...] (03/26/2019 4:00 PM) Support System: Lives in [place], [place] in home with 3 steps. Will have 24 hour support at [facility] [place]. Current Level of Function Physical Therapy: 03/26 [...] in Multiple Plane s Cognition Cognition Comment: [place]. Poor insight into deficits. Review of Systems [...] symptoms suggesting or a h/o recen t [place] or symptoms of angina, new or worsening [...] was consulted for recomme ndations. --EKG showed NE prolongation of 230, prolonged QT at 520, [...] --cardiology following with primary team --plan for CLAY ARTIST shunt on March 29. Thank you for the consult. Will sign off at this time. If the primary service needs further assistance, the service should page [phone] (24 hours a day/7 days a week) to discuss the case. Nguyen Hayes MD Consult pager [phone] Subjective: Estrada Godoy is a 84 y.o. [...] 3. Normal pressure hydrocephalus/ Basal aneurism. 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 Patient has had progressive dementia and gait disturbance and urinary incontinen ce. He was diagnosed with normal pressure hydrocephalus and transferred to [facility] f or evaluation. 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 He was tra nsferred to for insertion of CLAY ARTIST shunt and then ultimately treatment of his an eurysm on this will need to be delayed until he has recovered from his CLAY ARTIST shunt He has a long history of coronary disease. He initially presented with fatigue sleepiness and lack of energy. Ultimately a welt wheeler in [place] performed a n angiogram and placed a [...] progressive weakness that he met that heralded [facility] need for another stent. His last [...] symptoms suggesting or a h/o recen t [place] or symptoms of angina, new or worsening or decompensated CHF, significant a rrythmias, h/o aortic stenosis or mitral stenosis or other severe valvular dx. H e denies clinical predictors including h/o CVA, CHF, DM, or renal failure. He d oes have a significant hx severe CAD and poor functional status at this time. Plan: --EKG shows NE prolongation of 230, prolonged QT at 520, no ST/TW changes to sug gest ischemia, rate 55 --will attempt to obtain records of last LHC, stress, ECHO, prior imaging of ane ursyms and last progress note from the pt's welt wheeler Dr Vanegas (phone ) --keep on tele --hold warfarin --start heparin drip for AC pre-operatively --recommend consulting our cardiology team given the multiple cardiac issues the pt has, his EKG abnormalities and the high-risk surgery pt is about to undergo Thank you for the consult. . Note: All patient care calls should be directed fi rst to the primary service. If the primary service needs further assistance, [facility] service should page [phone] (24 hours a day/7 days a week) to discuss the case. 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 Mr. Godoy' daughter and plan to [...] Planning Pt's family to transport pt to [place] today by 9:00a [facility]:(Clinically accepted) [address] [place] [address] (M-F) / [phone] (S-S) [phone] ? Medication Needs ? Financial ? Legal [...] selected for the patient. Cher Price LMSW *[phone] * Care Coordination-Inpatient - Allison Stockton RN - 04/03/2019 1:16 PM CDT Estrada Godoy NPH (normal pressure hydrocephalus) with Left ventriculoperitoneal shunt placeme nt on 03/29/[address] Weber. Codman valve @ 5. Neurosurgery Discharge Instructions Contact information: ? Please feel free to call Neurosurgery at any time if you have questions or are experiencing problems at discharge [phone]. Post-operative wound care: ? Your head incision [...] w/o contrast [place] [facility] prior to appointment. ? 04/12/19 @ 1:45 [...] Stockton RN Clinical Nurse Coordinator Neurosurgery Office: [phone] * Case Mgmt DC Plan - Cher [...] on Dwight morning to transport p t [place] ? Info or Referral ? Discharge Planning [...] tomorrow 04/04/19, with family transport . [facility]: (Clinically accepted) [address] [place] [address] (M-F) / [phone] (S-S) [phone] ? Medication Needs ? Financial ? Legal [...] selected for the patient. Cher Price LMSW *[phone] * Case Mgmt DC Plan - Cher Price - 04/01/2019 10:20 AM CDT Weekend SW attempted to prepare pt and family to d/c to [facility]; however, primary t eam stating that they have additional imaging that he is scheduled for, for shilpa . Pt will not d/c today. SW will notify [place] [facility] of pt's disposi tion. -Cher Price LMSW *[phone] * Procedures (Immed Post or Bedside) - Niall Donovan MD - 03/30/2019 5:22 PM CDT Immediate Post Procedure Note 03/30/19 Attending Physician: Ton Weber MD Drilling Foreman(s): Niall Donovan MD Procedure(s): Dx angiogram Indications: [...] the day for possible d/c to IPR. [place] [facility], has clinically accepted pt, but cannot accept after 4 :00 today. [facility] is able to admit on Tuesday04/01/19, however. SW has spoken with the family, who will be available to transport on Tuesday, and are agreeable to this plan. Interventions ? Support Pt's and 2 adult daughters plan to be here on Tuesday morning to transport [facility]. ? Info or Referral ? Discharge Planning Weekend SW to call the charge histotechnologist to verify when pt is to d/c (anytime Tuesday) is appropriate, if team is agreeable. Family ( and two adult daughter) to provide transportation. Weekend SW/Bedside RN: vocational director: [phone] Dr. Fernandez: [phone] Orders [facility]: (Clinically accepted) [address] [place] [address] ? Medication Needs ? Financial ? Legal [...] been selected for the patient. Cher Price, [facility] *[phone] * Response Teams - Juan C Dempsey RN - 03/29/2019 6:46 PM CDT MEDICAL CHEMIST Follow up @ 1845: The patient is [...] for this patient on 03/29/19 at 1639. MEDICAL CHEMIST called to bedside for concern of patient having staring episodes and delayed responses. Family at bedside reporting patient confused. Upon MEDICAL CHEMIST arrival patie nt A&Ox3, which is patient's baseline per report. Neurosurgery at bedside to assess patient. Patient moves all extremities equally and family reports his confusion has improved. Glucose 141. Patient to have post operative CT head completed. MEDICAL CHEMIST to follow up in approximately 2 hours [...] completion of the case. Please see n [facility] dictation for all other portions of the case. Dr. Germain was present and actively participating throughout the entirety of the procedure. Estimated Blood Loss: 1cc. Specimen(s) Removed/Disposition: * No specimens in log * Ritu Palma MD Pager [phone] * Operative Report (Direct Entry) - Paris Whiting MD - 03/29/2019 12:51 PM CDT NEUROSURGERY OPERATIVE REPORT [facility] [address]. [place], [place] [address] PATIENT NAME: Estrada Godoy MR#/PT#: [id number] DATE: 1935 DATE OF OPERATION: 03/29/19 SURGEON: Ton Weber MD CO-SURGEON: Abdi Germain MD BATH TESTER(S): Mario Pereyra MD Jack, Megan, MD PREOPERATIVE [...] The head was placed in a horseshoe wet process miller head assistant. The hair was clipped near Sridevi's point [...] site of the planned b urrhole. The stonecutter assistant was used to make a burrhole. A [...] opening pressure was measured at 10. A Citrusman Certas valve was previously set at 5. [...] so that pt can d/c to [facility] in [place]. Mr. Godoy has been clinically accepted to [facility]; family is able to tra [place], if [...] car with family vs w/c transportation. [facility]: (Clinically accepted) [address] [place] [address] (M-F) / [phone] (S-S) [phone] ? Medication Needs ? Financial ? Legal [...] been selected for the patient. Cher Price, [facility] *[phone] * Care Plan - Alie Joya, RN [...] Kiley Girard - 03/28/2019 10:46 AM CDT METAL CONTROL WORKER Note: Sent referral to [facility] IPR per the request of [facility] Cher Price. Kiley Girard Metal Can Inspector For additional assistance, please contact [facility] Cher Price [phone] * Case Mgmt DC Plan - Cher [...] car with family vs w/c transportation. [facility]: [address] [place] [address] (M-F) / [phone] (S-S) [phone] ? Medication Needs ? Financial ? Legal [...] selected for the patient. Cher Price, GERMAINE *[phone] * Case Mgmt DC Plan - Jannie [...] [facility]. Pt's pt was needing more assistance at home prior to admission, specificall y with getting up and down from sitting. Pt has a history of IPR at [facility] in [place], but denies any further needs at this time. Pt to OR tomorrow. Pr imary SW and RNCM to follow for discharge planning. Patient Address/Phone [address] [phone] (home) Emergency Contact Extended Emergency Contact Information Primary Emergency Contact: Lindsay Godoy [facility] Mobile Relation: Spouse Secondary Emergency Contact: Dori Can Mobile Relation: Daughter Preferred language: SETSWA[place] Seo Team Lead needed? No Healthcare Directive Healthcare Directive: Yes, patient has a healthcare directive Type of Healthcare Directive: Durable power of [place] attorney for healthcare Location of Healthcare Directive: [...] Source of Income Source Of Income: Other long term income ? Financial Assistance Needed? n/a Psychosocial Needs ? Mental Health Mental Health History: No ? Substance Use History Substance Use History Screen: No ? Other none Current/Previous Services ? PCP Lesley Butcher, , ? Pharmacy [place] [address] [address] [address] [facility] [address] ? Durable Medical Equipment Durable Medical Equipment [...] ? Outpatient Therapy PT: No OT: No TORCH SOLDERER: No ? Group Home Facility/Prison SNF: No NH: No ? Inpatient Rehab IPR: In the past Name of Facility: [facility] Would patient return for future services?: Yes ? [facility] LTACH: No ? Acute Hospital Stay Acute Hospital Stay: In the past Was patient's stay within the last 30 days?: No Jannie Lugo LMSW, AMELIE Railway Track Worker Pager: [phone] * Care Plan - Radha Bazan RN [...] imaging of the head was performed. 3D yjwc-nu-stzeqsgtslfu of the [place] was performed prior to and [...] placed over the indwelling right-sided cochlear implant sap developer/stimulator and implanted fixation magnetic by Dr. Whiting [...] imaging of the head was performed. 3D lelj-mj-fqdpki images of the [place] was performed prior to and [...] placed over the indwelling right-sided cochlear implant sap developer/stimulator and implanted fixation magnetic by Dr. Whiting [...] imaging of the head was performed. 3D ojrr-hr-sadlsvpgafpn of the [place] was performed prior to and [...] placed over the indwelling right-sided cochlear implant sap developer/stimulator and implanted fixation magnetic by Dr. Whiting [...] imaging of the head was performed. 3D cbvk-cl-yxghhh images of the [place] was performed prior to and [...] placed over the indwelling right-sided cochlear implant sap developer/stimulator and implanted fixation magnetic by Dr. Whiting [...] suite for transradial approach under general anesthesia. VP TREASURER. Gus BATH TESTER. None ANESTHESIA. General PROCEDURE. Ultrasound guided radial [...] Heparin ~70 units/kg was administered intravenously. A 5-Uzbek CartMomoumZaggora Block-2 or Block-3 diagnostic catheter was introduced [...] angiography of the above named vessels. The TerumZaggora TR radial armband was applied and inflated [...] from pathology. The branching superior cerebellar and ADVANCED NURSING PROFESSOR vessels appear within normal limits. Compared to [...] suite for transradial approach under general anesthesia. VP TREASURER. Gus BATH TESTER. None ANESTHESIA. General PROCEDURE. Ultrasound guided radial [...] Heparin ~70 units/kg was administered intravenously. A 5-Uzbek Terumo Block-2 or Block-3 diagnostic catheter was [...] from pathology. The branching superior cerebellar and ADVANCED NURSING PROFESSOR vessels appear within normal limits. Compared to [...] on 04/13/2019 10:54 AM. Performing Organization Address City/[facility] Phone Number RAD RESULTS * TYPE & CROSSMATCH (04/02/2019 10:46 AM CDT) Units Ordered 0 MAIN LAB Crossmatch 04/05/2019 MAIN LAB Expires Record Check FOUND MAIN LAB ABO/RH(D) O POS MAIN LAB Antibody Screen NEG MAIN LAB Electronic YES MAIN LAB Crossmatch Specimen Blood Performing Organization Address [facility] Cent[facility]ode Phone Number MAIN LAB [address] [place] [address] * CBC AND DIFF (04/01/2019 4:28 AM [...] Basophil Count Specimen Blood Performing Organization Address City/[facility] Cent[facility] Phone Number MAIN LAB [address] [place] [address] * BASIC METABOLIC PANEL (04/01/2019 4:28 AM CDT) Pathologist [facility] Sodium 139 137 - 147 MMOL/L KU [...] (L) >60 mL/min [facility] MAIN LAB Comment: [place] The eGFR is not validated for use in drug dosing adjustments.Continue to use estimated creatinine clearance per dosing reference text.Please contact the Clinical Pharmacist for questions. eGFR >60 >60 mL/min [facility] MAIN LAB [place] Comment: The eGFR is not validated for use in drug dosing adjustments.Continue to use estimated creatinine clearance per dosing reference text.Please contact the Clinical Pharmacist for questions. Specimen Blood Performing Organization Address City/State/Zipcode Phone Number MAIN LAB [address] [place] [address] * CBC AND DIFF (03/31/2019 4:00 AM CDT) [facility] White Blood 7.4 4.5 - 11.0 [...] Basophil Count Specimen Blood Performing Organization Address City/[facility] [facility]/Zipcode Phone Number MAIN LAB [address] [place] [address] * BASIC METABOLIC PANEL (03/31/2019 4:00 AM [...] >60 >60 mL/min [facility]U MAIN LAB Comment: [place] The eGFR is not validated for use in drug dosing adjustments.Continue to use estimated creatinine clearance per dosing reference text.Please contact the Clinical Pharmacist for questions. eGFR >60 >60 mL/min [facility] MAIN LAB [place] Comment: The eGFR is not validated for use in drug dosing adjustments.Continue to use estimated creatinine clearance per dosing reference text.Please contact the Clinical Pharmacist for questions. Specimen Blood Performing Organization Address City/[facility] Phone Number MAIN LAB [address] [place] [address] * IR ARTERIOGRAM NEURO (03/30/2019 4:26 PM [...] brought the angiography suite for formal evaluation. VP TREASURER. Gus BATH TESTER. Niall Donovan, PGY 7 ANESTHESIA. Local with [...] insure maintain an air free system. A 5-Uzbek diagnostic catheter was introduced through the sheath.Utilizing a combination of roadmap, guidewire and direct catheter access techniques, a 5 Uzbek diagnostic catheter was used to perform diagnostic [...] brought the angiography suite for formal evaluation. VP TREASURER. Gus BATH TESTER. Niall Donovan, PGY 7 ANESTHESIA. Local with [...] insure maintain an air free system. A 5-Uzbek diagnostic catheter was introduced through the sheath. Utilizing a combination of roadmap, guidewire and direct catheter access techniques, a 5 Uzbek diagnostic catheter was used to perform diagnostic [...] Basophil Count Specimen Blood Performing Organization Address City/[facility] Cent[facility] Phone Number MAIN LAB [address] [place] [address] * BASIC METABOLIC PANEL (03/30/2019 4:25 AM [...] >60 >60 mL/min [facility]U MAIN LAB Comment: [place] The eGFR is not validated for use in drug dosing adjustments.Continue to use estimated creatinine clearance per dosing reference text.Please contact the Clinical Pharmacist for questions. eGFR >60 >60 mL/min K[facility] MAIN LAB [place] Comment: The eGFR is not validated for use in drug dosing adjustments.Continue to use estimated creatinine clearance per dosing reference text.Please contact the Clinical Pharmacist for questions. Specimen Blood Performing Organization Address City/[facility]ode Phone Number [facility] MAIN LAB [address] [place] [address] * C SPINE 3 VIEWS OR LESS [...] PM CDT) Specimen Impressions Performed At 1.Intact CLAY ARTIST shunt tubing without kink or fracture. KU [...] pneumothorax, or lobar consolidation. IMPRESSION 1. Intact CLAY ARTIST shunt tubing without kink or fracture. 2. [...] Performed At Intact abdominal segment of the CLAY ARTIST shunt catheter with no evidence of kinking [...] quadrant. IMPRESSION Intact abdominal segment of the CLAY ARTIST shunt catheter with no evidence of kinking [...] on 03/30/2019 7:04 AM. Performing Organization Address [facility] Cent[facility]owv Phone Number RAD RESULTS * POC GLUCOSE (03/29/2019 4:43 PM CDT) Pathologist [facility] Glucose, POC 141 (H) 70 - 100 MG/DL MAIN LAB Specimen Performing Organization Address [facility] [place] [place] Phone Number MAIN LAB [address] [phone] * PROTIME INR (PT) (03/29/2019 7:28 AM CDT) [facility] INR 1.1 0.8 - 1.2 MAIN LAB Specimen Blood Performing Organization Address [facility] [place] [place] Phone Number MAIN LAB [address] [phone] * CBC AND DIFF (03/29/2019 4:04 AM CDT) Pathologist [facility] White Blood 6.3 4.5 - 11.0 K/UL [...] Basophil Count Specimen Blood Performing Organization Address City/[facility]/Zipcode Phone Number MAIN LAB [address] [place] [address] * BASIC METABOLIC PANEL (03/29/2019 4:04 AM [...] 57 (L) >60 mL/min MAIN LAB Comment: [place] The eGFR is not validated for use in drug dosing adjustments.Continue to use estimated creatinine clearance per dosing reference text.Please contact the Clinical Pharmacist for questions. eGFR >60 >60 mL/min MAIN LAB [place] Comment: The eGFR is not validated for use in drug dosing adjustments.Continue to use estimated creatinine clearance per dosing reference text.Please contact the Clinical Pharmacist for questions. Specimen Blood Performing Organization Address City/[facility] Cent[facility]ode Phone Number [facility] [address] [place] [address] * BLOOD TYPE CONFIRMATION - ORDER ONLY IF REQUESTED BY LAB (03/28/2019 8:48 PM CDT) ABO/RH(D) O POS MAIN LAB Specimen Blood Performing Organization Address City/[facility]/Zipcode Phone Number MAIN LAB [address] [place] [address] * TYPE & CROSSMATCH (03/28/2019 7:25 PM CDT) Units Ordered 2 MAIN LAB Crossmatch 03/31/2019 KU MAIN LAB Expires Record Check 2ND TYPE REQUIRED [facility]U MAIN LAB ABO/RH(D) O POS [facility]U MAIN LAB Antibody Screen NEG [facility] MAIN LAB Electronic YES MAIN LAB Crossmatch Specimen Blood Performing Organization Address City/[facility]/Zipcode Phone Number MAIN LAB [address] [place] [address] * CBC AND DIFF (03/28/2019 4:20 AM [...] Basophil Count Specimen Blood Performing Organization Address City/[facility]/Zipcode Phone Number MAIN LAB [address] [place] [address] * BASIC METABOLIC PANEL (03/28/2019 4:20 AM [...] >60 >60 mL/min KU MAIN LAB Comment: [place] The eGFR is not validated for use in drug dosing adjustments.Continue to use estimated creatinine clearance per dosing reference text.Please contact the Clinical Pharmacist for questions. eGFR >60 >60 mL/min [facility] MAIN LAB [place] Comment: The eGFR is not validated for use in drug dosing adjustments.Continue to use estimated creatinine clearance per dosing reference text.Please contact the Clinical Pharmacist for questions. Specimen Blood Performing Organization Address City/State/Zipcode Phone Number MAIN LAB [address] [place] [address] * 2-D + DOPPLER ECHOCARDIOGRAM (03/27/2019 10:35 [...] area= LAB AV index 0.85 OTHER OUTSIDE (moapa) LAB E/A ratio 0.80 OTHER OUTSIDE LAB LVOT area 2.72 cm2 OTHER OUTSIDE LAB LVOT stroke 70.10 cm3 OTHER OUTSIDE volume LAB TV rest 21 mmHg OTHER OUTSIDE pulmonary LAB artery pressure E/E' ratio 6.43 OTHER OUTSIDE LAB Left Atrium 16.09 16 - 34 OTHER OUTSIDE Index LAB Cardiology Siemens [id number] OTHER OUTSIDE Ultrasound LAB Machine Left Ventricle [...] City/State/Zipcode Phone Number [facility] MAIN LAB [address] [place] [address] * BASIC METABOLIC PANEL (03/27/2019 3:47 AM CDT) [facility] Sodium 138 137 - 147 MMOL/L [...] >60 >60 mL/min KU MAIN LAB Comment: [place] The eGFR is not validated for use in drug dosing adjustments.Continue to use estimated creatinine clearance per dosing reference text.Please contact the Clinical Pharmacist for questions. eGFR >60 >60 mL/min KU MAIN LAB [place] Comment: The eGFR is not validated for use in drug dosing adjustments.Continue to use estimated creatinine clearance per dosing reference text.Please contact the Clinical Pharmacist for questions. Specimen Blood Performing Organization Address City/State/Zipcode Phone Number MAIN LAB [address] [place] [address] * CBC AND DIFF (03/27/2019 3:47 AM CDT) Pathologist [facility] White Blood 6.5 4.5 - 11.0 K/UL [...] Basophil Count Specimen Blood Performing Organization Address City/[facility]/Zipcode Phone Number MAIN LAB [address] [place] [address] * BASIC METABOLIC PANEL (03/26/2019 1:12 PM [...] (L) >60 mL/min KU MAIN LAB Comment: [place] The eGFR is not validated for use in drug dosing adjustments.Continue to use estimated creatinine clearance per dosing reference text.Please contact the Clinical Pharmacist for questions. eGFR >60 >60 mL/min KU MAIN LAB [place] Comment: The eGFR is not validated for use in drug dosing adjustments.Continue to use estimated creatinine clearance per dosing reference text.Please contact the Clinical Pharmacist for questions. Specimen Blood Performing Organization Address City/[facility]/Zipcode Phone Number [facility] [address] [place] [address] * PTT (APTT) (03/26/2019 1:12 PM CDT) APTT 34.3 24.0 - 36.5 SEC MAIN LAB Specimen Blood Performing Organization Address City/[facility]/Zipcode Phone Number [facility] [address] [place] [address] * PROTIME INR (PT) (03/26/2019 1:12 PM CDT) INR 2.3 (H) 0.8 - 1.2 KU MAIN LAB Specimen Blood Performing Organization Address [facility] Cent[facility]ode Phone Number MAIN LAB [address] [phone] * CBC AND DIFF (03/26/2019 1:12 PM CDT) Pathologist [facility] White Blood 5.1 4.5 - 11.0 K/UL [...] Basophil Count Specimen Blood Performing Organization Address City/[facility]/Zipcode Phone Number MAIN LAB [address] [phone] * TELEMETRY STRIPS-SCAN (03/26/2019 12:00 AM CDT) [...]
--- OUTSIDE RECORDS SUMMARY | 2019-05-28 08:55 | XMS REPORT | Encounter Summary ---
Author Author [facility] Organization [facility] Address Unknown Phone Unavailable Care Team Providers Care Carbon Paper Interleafer Name Role Phone Michael Velasquez MD Unavailable Lesley Butcher MD PCP Reason for Visit * Reason Comments Cochlear Implant Encounter Details Care Team Description Date Type Department Monalisa Leon AUD Sensorineural hearing loss (SNHL) of both ears 02/05/2019 Clinical [facility] [address] [place] [address] Social History Date Tobacco Use [...] on such as memory. Internal Device Ear Linderman Operator Internal Device Initial Stimulation Date Surgery Date Time Post Initial Stimulation Surgeon Carmen Cuadra Biourbano Linda Feliciano MS 03/10/18 02/24/18 11 months Yung Moreno MD Equipment: Ear Processor(s) Serial Number Magnet Strength Processor Condition R Beena CI [id number] good Equipment: good - primary cable [...] Hearing Aid: Patient wears a BTE from [employer]. Linderman Operator: Beltone Model: Serial Numbers: Repair Warranty: [...] would like this to be completed in [place] if possible) and possibly a ref erral [...]
--- OUTSIDE RECORDS SUMMARY | 2019-05-28 08:55 | XMS REPORT | Encounter Summary ---
Author Author [facility] Organization [facility] Address Unknown Phone Unavailable Care Team Providers Care Skills Auditor Name Role Phone Michael Velasquez MD Unavailable Lesley Butcher MD PCP Reason for Visit * Reason Comments Appointment Cochlear Implant Encounter Details Care Team Description Date Type Department Mirella Kent AUD Appointment (Cochlear Implant) 01/02/[address] [facility] [address] [place] [address] Social History Date Tobacco Use [...]
--- OUTSIDE RECORDS SUMMARY | 2019-05-28 08:55 | XMS REPORT | Encounter Summary ---
Author Author [facility] Organization [facility] Address Unknown Phone Unavailable Care Team Providers Care Assistant Director Of Financial Aid Name Role Phone Michael Velasquez MD Unavailable Lesley Butcher MD PCP Reason for Visit * Auth/Cert Referred By Contact Referred To Contact Status Reason Specialty Diagnoses / Procedures Diagnoses Cerebral Aneurysm Encounter Details Care Team Description Date Type Department Juan J Reilly MD [address] [place] [address] 03/29/2019 Anesthesia [facility] [place] [address] Anesthesia Record Responsible Anesthesiologist Anesthesia [...]
--- OUTSIDE RECORDS SUMMARY | 2019-05-28 08:55 | XMS REPORT | Encounter Summary ---
Author Author [facility] Organization [facility] Address Unknown Phone Unavailable Care Team Providers Care Workforce Planning Analyst Name Role Phone Michael Velasquez MD Unavailable Lesley Butcher MD PCP Reason for Visit * Reason Comments Vestibular Testing Encounter Details Care Team Description Date Type Department Karis Castro, AUD [address] [place] [address] Dizziness 02/05/2019 Procedure visit [facility] [address] [place] [address] Social History Date Tobacco Use [...]
--- OUTSIDE RECORDS SUMMARY | 2019-05-28 08:55 | XMS REPORT | Encounter Summary ---
Author Author [facility] Organization [facility] Address Unknown Phone Unavailable Care Team Providers Care Mitten Sewer Name Role Phone Michael Velasquez MD Unavailable Lesley Butcher MD PCP Reason for Visit * Reason Comments Appointment Encounter Details Care Team Description Date Type Department Roxana Prieto Appointment 12/20/2018 Telephone [facility] [address] [place] [address] Social History Date Tobacco Use [...] - Roxana Prieto - 12/20/2018 2:08 PM H[employer]IC[employer]URAL [employer] Lvm informing patient that appt would need to be rescheduled. Left new appt and CC # in case appt does not work. - TS [employer] documented in this encounter Plan of Treatment Not on filedocumented as of this encounter Visit Diagnoses Not on filedocumented in this encounter
--- OUTSIDE RECORDS SUMMARY | 2019-05-28 08:55 | XMS REPORT | Encounter Summary ---
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 with CC of roughly a year [...] as well as AC plan -Plan for BIKE MECHANIC shunt once medically optimized -Consideration for treatment [...] coronary stents, AAA who present s to [facility] with complaints of roughly one years [...] part of a recommendation by ashley pierce road machinery inspector which brought to attention the giant basilar [...] L8614) performed by Yung Moreno MD at [facility] OR/P eriop TISSUE TRANSFER Right 11/03/2018 ADJACENT TISSUE TRANSFER PEDICLE FLAP (THINNING OF SCALP ABOVE MAGNET) perfor med by Yung Moreno MD at [facility] OR/Periop CORONARY ANGIOPLASTY x5 HX HEART CATHETERIZATION [...] to cloud reviewed Fuad Dawson MD * Glnena Navarro - 03/26/2019 10:30 AM CDT Estrada [...]
--- OUTSIDE RECORDS SUMMARY | 2019-05-28 08:56 | XMS REPORT | Encounter Summary ---
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) 11/29/2018 Office Visit [facility] [address] [place] [address] Social History Date Tobacco Use [...] Comments Vital Sign 116/75 11/29/2018 1:29 PM DEPUTY SHERIFF Blood Pressure 92 11/29/2018 1:29 PM DEPUTY SHERIFF Pulse - - Temperature - - Respiratory Rate - - Oxygen Saturation - - Inhaled Oxygen Concentration 97.1 kg (214 lb) 11/29/2018 1:29 PM DEPUTY SHERIFF Weight 182.9 cm (6') 11/29/2018 1:29 PM DEPUTY SHERIFF Height 29.02 11/29/2018 1:29 PM DEPUTY SHERIFF Body Mass Index documented in this encounter Progress Notes * Yung Moreno MD - 11/29/2018 1:50 PM DEPUTY SHERIFF Date of Service: 11/29/2018 Subjective: Estrada Godoy [...] L8614) performed by Yung Moreno MD at [facility] OR/Per iop TISSUE TRANSFER Right 11/03/2018 ADJACENT TISSUE TRANSFER PEDICLE FLAP (THINNING OF SCALP ABOVE MAGNET) performe d by Yung Moreno MD at [facility] OR/Periop CORONARY ANGIOPLASTY x5 HX HEART CATHETERIZATION [...] I will have him return in [facility] ut 4-6 months or sooner if needed. In the presence of Yung Moreno MD, I have taken down these notes, Yue Becerril Scribe. 11/29/2018 2:07 PM TY SHERIFF documented in this encounter Plan of Treatment Not on filedocumented as of this encounter Visit Diagnoses Diagnosis Inactive Meniere's disease of both ears - Primary documented in this encounter
--- OUTSIDE RECORDS SUMMARY | 2019-05-28 08:56 | XMS REPORT | Encounter Summary ---
Author Author [facility] Organization [facility] Address Unknown Phone Unavailable Care Team Providers Care Automatic Nailing Machine Feeder Name Role Phone Michael Velasquez MD Unavailable Lesley Butcher MD PCP Reason for Visit * Reason Comments Cochlear Implant Encounter Details Care Team Description Date Type Department Kendal Leonardo AUD [address] [facility] [address] [place], [place] [phone] Sensorineural hearing loss, bilateral 11/29/2018 Clinical [facility] [address] [place] [address] Social History Date Tobacco Use [...] of this encounter Progress Notes * Kendal Leonadro AUD - 11/29/2018 2:00 PM RUBBER TUBING BACKER Estrada Godoy was seen in the clinic [...] on with his implant. Internal Device Ear Chief Airport Guide Internal Device Initial Stimulation Date Surgery Date Time Post Initial Stimulation Surgeon R Advanced Bionic HiRgen Ultra MS 03/10/18 02/24/18 8 months Yung Moreno MD Equipment: Ear Processor(s) Serial Number Magnet Strength Processor Condition R Beena CI [id number] good Programming: Impedances: within normal limits [...] Aid: Patient wears a BTE from [employer]. Chief Airport Guide: [employer] Model: Serial Numbers: Repair Warranty: L&D [...] provider to have left hearing aid checked. ER TUBING BACKER documented in this encounter Plan of Treatment Not on filedocumented as of this encounter Procedures Comments Procedure Name Priority Date/Time Associated Diagnosis AUDIOMETRY WITH Routine 11/29/2018 TYMPANOMETRY 3:55 PM RUBBER TUBING BACKER COCHLEAR IMPLANT Routine 11/29/2018 OUTCOMES-AUDIOGRAM documented in this encounter Visit Diagnoses Diagnosis Sensorineural hearing loss, bilateral documented in this encounter
== END 2019-05-26 10:45 | disposition home or self-care (01) | DRG 151 ==
LOC: ER 16:54 → EDUNIT# 16:54 → ICU 17:11 → SDC 17:11 → ICU 21:32 → UNDOADMOB 21:32 → ICU 05-25 07:58 → 4TH 05-25 07:58 → SDC 05-25 08:16 → OBSVTOIN 05-25 08:17 → INTOOBSV 05-25 08:17 → 4TH 05-25 08:17 → UNDODISIN 05-26 10:45
PROVIDERS: ADMIT Otolaryngology Otolaryngology/Facial Plastic Surgery; ATTEND Otolaryngology Otolaryngology/Facial Plastic Surgery
PROC: 093K8ZZ Control Bleeding in Nasal Mucosa and Soft Tissue, Via Natural or Artificial Opening Endoscopic (ICD-10-PCS; principal; 2019-05-25)
DX: R04.0 Epistaxis (principal); I48.91 Unspecified atrial fibrillation; Z79.01 Long term (current) use of anticoagulants; G91.2 (Idiopathic) normal pressure hydrocephalus; I67.1 Cerebral aneurysm, nonruptured; I42.9 Cardiomyopathy, unspecified; G47.30 Sleep apnea, unspecified; I25.10 Atherosclerotic heart disease of native coronary artery without angina pectoris; I10 Essential (primary) hypertension; E78.00 Pure hypercholesterolemia, unspecified; F32.9 Major depressive disorder, single episode, unspecified; Z87.891 Personal history of nicotine dependence; Z98.2 Presence of cerebrospinal fluid drainage device; Z95.5 Presence of coronary angioplasty implant and graft
CPT/HCPCS: 36415; 80048; 85025; 85610

== ENCOUNTER → 2019-06-06 | Outpatient (CLI) | payer MEDICARE ==
[~2019-06-06] VITALS: Ht 182.9 cm; Wt 93.6 kg
[~2019-06-06] MED LIST changes: +CEPH-507 PO; +CEPH500C PO; +CETI10TA20 PO; +DOCU-143 PO; +HYDR-3812 PO; +OXYM30SP NS; +WARF1TAB82 PO
[2019-06-06 13:25] VITALS: BP 131/79
== END ==
LOC: SDC 12:53
PROVIDERS: ATTEND Nurse Practitioner Family
DX: R33.9 Retention of urine, unspecified (principal)
CPT/HCPCS: 99213

== ENCOUNTER 2019-06-12 15:15 | Outpatient (CLI) | payer MEDICARE ==
[~2019-06-12] VITALS: Ht 182.9 cm; Wt 93.6 kg
[2019-06-12 15:10] VITALS: BP 135/90
[2019-06-12 16:10] VITALS: BP 135/90
== END 2019-06-12 16:10 | disposition home or self-care (01) ==
LOC: SDC 15:15
PROVIDERS: ATTEND Family Medicine
DX: R33.9 Retention of urine, unspecified (principal)
CPT/HCPCS: 51798

== ENCOUNTER 2019-07-08 19:05 | Observation (INO) | payer MEDICARE ==
[~2019-07-08] VITALS: Ht 182.9 cm; Wt 93.2 kg
[2019-07-08] MEDS ORDERED: SCOPOLAMINE 1.5 MG (TRANSDERM-SCOP) PATCH TD ONE (19:15)
[2019-07-08] MEDS ORDERED: ONDANSETRON 4 MG/2 ML (SDV) Z0FRAN IVP ONE ×2 (19:15→20:15)
[2019-07-08 19:33] LABS: BASOPHILS % (AUTO) 0 % (0-10); EOSINOPHILS # (AUTO) 0.1 10^3/uL (0.0-0.3); EOSINOPHILS % (AUTO) 2 % (0-10); HEMATOCRIT 35 % (40-54); HEMOGLOBIN 11.3 G/DL (13.3-17.7); LYMPHOCYTES # (AUTO) 2.4 X 10^3 (1.0-4.0); LYMPHOCYTES % (AUTO) 32 % (12-44); MEAN CORPUSCULAR HEMOGLOBIN 29 PG (25-34); MEAN CORPUSCULAR HGB CONC 33 G/DL (32-36); MEAN CORPUSCULAR VOLUME 89 FL (80-99); MEAN PLATELET VOLUME 9.6 FL (7.4-10.4); MONOCYTES # (AUTO) 0.7 X 10^3 (0.0-1.0); MONOCYTES % (AUTO) 9 % (0-12); NEUTROPHILS # (AUTO) 4.2 X 10^3 (1.8-7.8); NEUTROPHILS % (AUTO) 57 % (42-75); PLATELET COUNT 256 10^3/uL (130-400); RED CELL DISTRIBUTION WIDTH 15.1 % (10.0-14.5); WHITE BLOOD COUNT 7.4 10^3/uL (4.3-11.0)
[2019-07-08 19:48] LABS: INR 3.4 (0.8-1.4); PROTHROMBIN TIME PATIENT 35.9 SEC (12.2-14.7)
--- NOTE | 2019-07-08 19:52 | Diagnostic Imaging Report ---
PROCEDURE: CT head without contrast. TECHNIQUE: Multiple contiguous axial images were obtained through the brain without the use of intravenous contrast. Auto Exposure Controls were utilized during the CT exam to meet ALARA standards for radiation dose reduction. INDICATION:Dizziness and weakness Comparison is made to the study of 05/21/2019. Ventricles and sulci are diffusely prominent with low density in deep white matter of both hemispheres as well as the left basal ganglia. These findings have remained stable. There is no significant change in left ventriculoperitoneal shunt tube which extends into the left lateral ventricle near foramen of Katz. There is unchanged dilatation of the right lateral ventricle. 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 There is no evidence of acute hemorrhage. IMPRESSION: Stable chronic findings without acute intracranial abnormality detected. Dictated by: Dictated on workstation # [id number]
[2019-07-08 20:00] LABS: ALANINE AMINOTRANSFERASE 64 U/L (0-55); ALBUMIN 3.7 GM/DL (3.2-4.5); ALKALINE PHOSPHATASE 108 U/L (40-136); AMYLASE 77 U/L (25-125); BILIRUBIN,TOTAL 0.7 MG/DL (0.1-1.0); BUN/CREATININE RATIO 11; CALCIUM 8.5 MG/DL (8.5-10.1); CARBON DIOXIDE 20 MMOL/L (21-32); CHLORIDE 106 MMOL/L (98-107); CREATININE SERUM 1.34 MG/DL (0.60-1.30); GFR ESTIMATED 51; GLUCOSE 99 MG/DL (70-105); LIPASE 20 U/L (8-78); MAGNESIUM 1.9 MG/DL (1.6-2.4); SODIUM 139 MMOL/L (135-145); TOTAL PROTEIN 6.7 GM/DL (6.4-8.2)
--- NOTE | 2019-07-08 20:00 | Diagnostic Imaging Report ---
INDICATION: Hypertension and dizziness Upright portable AP view of the chest is obtained with comparison made to the study of 02/07/2019. Mild cardiomegaly persists. There is prominence of the aortic knob with rightward deviation of the trachea. This has remained stable. Tubing overlies the left chest likely due to ventriculoperitoneal shunt. There is no evidence of pneumothorax, consolidation or pleural fluid. IMPRESSION: Stable chest without acute abnormality detected. Dictated by: Dictated on workstation # [id number]
[2019-07-08] MEDS ORDERED: MECLIZINE 25 MG (ANTIVERT) TAB PO ONE (20:15)
--- NOTE | 2019-07-08 21:30 | NUR ---
ANA WALKER admitted to room 422-1, with an admitting diagnosis of Vertigo, on 07/08/19 from ER via cart, accompanied by and daughter. ANA WALKER introduced to surroundings, call light, bed controls, phone, TV, temperature control, lights, meal times, smoking policy, visitor policy, side rail policy, bathrooms and showers. Patient Rights given to patient in the handbook. ANA WALKER verbalizes understanding that [facility] is not responsible for the loss or damage to any personal effects or valuables that are kept in the patients posession during their hospitalization. The following Patient Care Plans were discussed with the pt and family: Discharge Planning, potential for injury,and fluid and electrolyte . ANA WALKER verbalizes understanding of Interdisciplinary Patient Education. Patient and/or family were informed about the Rapid Response Team and its purpose.
[2019-07-08 21:38] VITALS: BP 139/71
[2019-07-08] MEDS ORDERED: MECLIZINE 25 MG (ANTIVERT) TAB PO PRN (22:30)
[2019-07-08] MEDS ORDERED: ONDANSETRON 4 MG/2 ML (SDV) Z0FRAN IV PRN (22:30)
--- NOTE | 2019-07-08 23:00 | NUR ---
Dr Fernandez notified of family concern over bedtime meds and using Cpap. orders received,
[2019-07-08] MEDS: 1/2 NS IV SOLUTION 1,000 ML IV SCH (23:42)
[2019-07-09 00:02] VITALS: BP 130/67
[2019-07-09 03:46] VITALS: BP 111/68
[2019-07-09 04:40] LABS: BILIRUBIN,URINE NEGATIVE (NEGATIVE); CLARITY,URINE CLEAR; COLOR,URINE YELLOW; GLUCOSE, URINE (UA) NEGATIVE (NEGATIVE); KETONES,URINE NEGATIVE (NEGATIVE); LEUKOCYTE ESTERASE ,URINE 1+ (NEGATIVE); NITRITE,URINE NEGATIVE (NEGATIVE); PH,URINE 6 (5-9); PROTEIN,URINE NEGATIVE (NEGATIVE); UROBILINOGEN,URINE NORMAL (NORMAL)
[2019-07-09 04:52] LABS: BACTERIA,URINE TRACE /HPF
[2019-07-09] MEDS ORDERED: PATIENT MAY USE OWN MEDS, ALL MC SCH ×2 (05:15→09:30)
--- NOTE | 2019-07-09 06:34 | ED General ---
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 Nursing Sepsis Screen: No Definite Risk Source of Information: Patient (HARD OF HEARING), Family ( AND DAUGHTER) History of Present Illness Date Seen by Provider: Jul 08, 2019 Time Seen by Provider: 19:10 Initial Comments PT ARRIVES VIA POV C/O SUDDEN ONSET OF SEVERE DIZZINESS WITH SPINNING SENSATION, THEN STARTED HAVING NAUSEA AND VOMITING SYMPTOMS BEGAN AT 1840 AND CAME STRAIGHT HERE PT HAD BEEN COMPLETELY FINE, AND WAS ON HIS WAY TO [employer] ( PASSENGER ), WAS HE WAS GETTING OUT OF THE CAR, HE TURNED AND STARTED TO GET OUT OF THE CAR AND SYMPTOMS BEGAN HAS HAD NAUSEA AND VOMITED X 1 FEELS VERY OFF BALANCE NO HEADACHE NO VISION CHANGES, OTHER THAN EVERYTHING WAS SPINNING NO CHEST PAIN NO SHORTNESS OF BREATH NO PALPITATIONS NO PARESTHESIAS OR MOTOR DEFICITS HAS HAD SEVERAL FALLS THIS WEEK, BUT HAS NOT HIT HIS HEAD AT ANY TIME PT IS ON COUMADIN FOR CHRONIC ATRIAL FIBRILLATION AND SEVERE CAD. PT HAS HISTORY OF CEREBRAL ANEURYSMS AND HAS A BIT SANDER SHUNT IN PLACE. PT ALSO HAS HISTORY OF MENIERE'S AND HAS RIGHT COCHLEAR IMPLANT AND LEFT HEARING AID HAS HAD SIMILAR EPISODES OF DIZZINESS IN THE PAST, BUT NOT THIS BAD FOR 2-3 YEARS. PCP: DR. BHATT CARDIOLOGY AND NEUROLOGY: [facility] Allergies and Home Medications Allergies Coded Allergies: amoxicillin (Verified Allergy, Severe, RASH, pt has received Ancef & Cefepime in the past, 05/25/19) clavulanic acid (Verified Allergy, Severe, RASH, 12/26/18) Iodinated Contrast Media (Verified Allergy, Unknown, 12/26/18) Home Medications Allopurinol 100 Mg Tablet, 100 MG PO DAILY, (Reported) Amiodarone HCl 200 Mg Tablet, 200 MG PO BID, (Reported) Aspirin 325 Mg Tablet., 325 MG PO DAILY, (Reported) Atorvastatin Calcium 80 Mg Tablet, 80 MG PO DAILY, (Reported) Carboxymethylcellulose Sodium 15 Ml Drops, 1 DROP OU DAILY PRN for DRY EYES, (Reported) Cetirizine HCl 10 Mg Tablet, 10 MG PO DAILY, (Reported) Cholecalciferol (Vitamin D3) 5,000 Unit Tablet, 10,000 UNIT PO DAILY, (Reported) Citalopram Hydrobromide 40 Mg Tablet, 40 MG PO HS, (Reported) Docusate Sodium 100 Mg Capsule, 100 MG PO BID PRN for CONSTIPATION-1ST LINE, (Reported) Fluticasone Propionate 9.9 Ml Hope.susp, 1 SPRAY NS HS PRN for ALLERGIES, (Reported) Hydrocodone/Acetaminophen 1 Each Tablet, 1 TAB PO Q4H Prescribed by: RYLAND LAU on 05/26/19 0955 Losartan Potassium 50 Mg Tablet, 50 MG PO HS, (Reported) Multivitamin with Minerals 1 Each Tablet, 1 TAB PO DAILY, (Reported) Nitroglycerin 0.4 Mg Tab.subl, 0.4 MG SL UD PRN for CHEST PAIN, (Reported) Oxymetazoline HCl 30 Ml Hope, 2-3 SPRAYS NS Q4H PRN for NOSE BLEED, (Reported) Pantoprazole Sodium 40 Mg Tablet.dr, 40 MG PO DAILY, (Reported) Ropinirole HCl 0.25 Mg Tablet, 0.25 MG PO HS, (Reported) Spironolactone 25 Mg Tablet, 25 MG PO DAILY, (Reported) Tamsulosin HCl 0.4 Mg Cap, 0.4 MG PO HS, (Reported) Warfarin Sodium 3 Mg Tablet, 3 MG PO HS, (Reported) Patient Home Medication List Home Medication List Reviewed: Yes Review of Systems Review of Systems Constitutional: see HPI; No diaphoresis; dizziness; No fever EENTM: see HPI Respiratory: no symptoms reported; No short of breath Cardiovascular: no symptoms reported; No chest pain, No edema; Hx of Inter vention; No palpitations, No syncope; vascular heart diseas Gastrointestinal: see HPI; No abdominal pain; nausea, vomiting Genitourinary: no symptoms reported Musculoskeletal: no symptoms reported Skin: no symptoms reported Psychiatric/Neurological: See HPI; Denies Headache, Denies Numbness, Denies Paresthesia, Denies Seizure, Denies Tingling, Denies Weakness Hematologic/Lymphatic: No Symptoms Reported, See HPI Immunological/Allergic: no symptoms reported Past Cqaueym-Ngbkvf-Xofvvq Hx Past Med/Social Hx: Reviewed and Corrections made Patient Social History Alcohol Use: Denies Use Recreational Drug Use: No Smoking Status: Former Smoker Type Used: Cigarettes 2nd Hand Smoke Exposure: No Recent Foreign Travel: No Contact w/Someone Who Travel: No Recent Infectious Disease Expo: No Recent Hopitalizations: No (12/2018-DIVERTICULITIS/GI BLEED - 03/2019 NPH WITH BIT SANDER SHUNT) Physical Abuse: No Sexual Abuse: No Mistreated: No Fear: No Immunizations Up To Date Date of Pneumonia Vaccine: Jul 17, 2018 Date of Influenza Vaccine: Jul 08, 2018 Seasonal Allergies Seasonal Allergies: Yes Past Medical History Surgeries: Yes (CARDIAC STENTS X 10 OR 11; CARDIAC ANGIOPLASTIES; BILATERAL INGUINAL HERNIA REPAIRS; RIGHT COCHLEAR IMPLANT; AAA REPAIR WITH ENDOGRAFT; BIT SANDER SHUNT 03/29/19; SURGICAL CAUTERIZATION OF NOSEBLEED 05/24/19) Angioplasty, Brain Shunt, Cardiac, Coronary Stent, Ear Surgery, Gallbladder, Neurological, Nose, Vascular Surgery Respiratory: Yes (USES CPAP) Sleep Apnea Currently Using CPAP: Yes Currently Using BIPAP: No Cardiac: Yes (CARDIAC STENTS X 10 OR 11 TOTAL; 5 CARDIAC ANGIOPLASTIES; AAA RE PAIR WITH ENDOGRAFT; ISCHEMIC CARDIOMYOPATHY; BASILAR ARTERY CEREBRAL ANEURYSM) Aneurysm, Atrial Fibrillation, Cardiomyopathy, Chronic Edema/Swelling, Coronary Artery Disease, High Cholesterol, Hypertension, Peripheral Vascular Neurological: Yes (MENIERE'S; BASILAR ARTERY ANEURYSM-BEING MONITORED; 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 03/29/19; BALANCE ISSUES; RESTLESS LEG SYNDROME) Vertigo Reproductive Disorders: No Sexually Transmitted Disease: No HIV/AIDS: No Genitourinary: Yes (CHRONIC RENAL INSUFFICIENCY) Benign Prostatic Hyperpl, Kidney Stones, Renal Failure Gastrointestinal: Yes (DIVERTICULITIS WITH GI BLEEDING 12/2018) Abdominal Hernia, Gastrointestinal Bleed, Diverticulosis Musculoskeletal: Yes (RESTLESS LEG SYNDROME; GAIT DISTURBANCE; FALLS) Arthritis, Gout (?) Endocrine: No HEENT: Yes (READING GLASSES; MENIERE'S DISEASE; RIGHT COCHLEAR IMPLANT; HEARING AID ON LEFT; NOSEBLEEDS) Loss of Vision: Bilateral Hearing Impairment: Hard of Hearing, Hearing Aide Left Cancer: No Psychosocial: Yes Depression Integumentary: No Blood Disorders: No Adverse Reaction/Blood Tranf: No (N/A) Family Medical History Heart Disease, Hypertension Physical Exam Vital Signs Vital Signs - First Documented 07/08/19 07/08/19 07/09/19 19:08 21:38 03:38 Temp 37.4 Pulse 71 Resp 22 B/P (MAP) 170/92 (118) Pulse Ox 92 O2 Delivery Room Air FiO2 21 Capillary Refill : Less Than 3 Seconds Height, Weight, BMI Height: 6'0.00" Weight: 206lbs. 5.8oz. 93.572533yr; 27.86 BMI Method:Stated General Appearance: No Apparent Distress, WD/WN, Anxious (TREMULOUS), Other (KEEPS EYES CLOSED) HEENT: PERRL/EOMI, Other (RIGHT COCHLEAR IMPLANT; LEFT HEARING AID; NO NYSTAGMUS ) Neck: Normal Inspection; No JVD Respiratory: Normal Breath Sounds, No Accessory Muscle Use, No Respiratory Distress Cardiovascular: Regular Rate, Rhythm, No JVD, Normal Peripheral Pulses, Extra Beats (OCCASIONAL) Gastrointestinal: No Pulsatile Mass, Non Tender, Soft Extremity: Normal Capillary Refill, Normal Range of Motion, No Calf Tenderness, No Pedal Edema Neurologic/Psychiatric: Alert, Oriented x3, No Motor/Sensory Deficits, 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 Norm as Tested, Other (UNABLE TO PERFORM CEREBELLAR TESTS ON ARRIVAL; ANXIOUS/TREMULOUS ) Skin: Normal Color, Warm/Dry Progress/Results/Core Measures Suspected Sepsis Recent Fever Within 48 Hours: No Infection Criteria Present: None New/Unexplained Altered Menta: No Sepsis Screen: No Definite Risk SIRS Temperature: Pulse: 57 Respiratory Rate: 18 Laboratory Tests 07/08/19 19:15: White Blood Count 7.4 Blood Pressure 111 /68 Mean: 82 Laboratory Tests 07/08/19 19:15: Creatinine 1.34H, INR Comment 3.4H, Platelet Count 256, Total Bilirubin 0.7 Results/Orders Lab Results Laboratory Tests Test 07/08/19 19:15 07/09/19 04:30 Range/Units White Blood Count 7.4 4.3-11.0 10^3/uL Red Blood Count 3.91 L 4.35-5.85 10^6/uL Hemoglobin 11.3 L 13.3-17.7 G/DL Hematocrit 35 L 40-54 % Mean Corpuscular Volume 89 80-99 FL Mean Corpuscular Hemoglobin 29 25-34 PG Mean Corpuscular Hemoglobin Concent 33 32-36 G/DL Red Cell Distribution Width 15.1 H 10.0-14.5 % Platelet Count 256 130-400 10^3/uL Mean Platelet Volume 9.6 7.4-10.4 FL Neutrophils (%) (Auto) 57 42-75 % Lymphocytes (%) (Auto) 32 12-44 % Monocytes (%) (Auto) 9 0-12 % Eosinophils (%) (Auto) 2 0-10 % Basophils (%) (Auto) 0 0-10 % Neutrophils # (Auto) 4.2 1.8-7.8 X 10^3 Lymphocytes # (Auto) 2.4 1.0-4.0 X 10^3 Monocytes # (Auto) 0.7 0.0-1.0 X 10^3 Eosinophils # (Auto) 0.1 0.0-0.3 10^3/uL Basophils # (Auto) 0.0 0.0-0.1 10^3/uL Prothrombin Time 35.9 H 12.2-14.7 SEC INR Comment 3.4 H 0.8-1.4 Activated Partial Thromboplast Time 56 H 24-35 SEC Sodium Level 139 135-145 MMOL/L Potassium Level 4.0 3.6-5.0 MMOL/L Chloride Level 106 98-107 MMOL/L Carbon Dioxide Level 20 L 21-32 MMOL/L Anion Gap 13 5-14 MMOL/L Blood Urea Nitrogen 15 7-18 MG/DL Creatinine 1.34 H 0.60-1.30 MG/DL Estimat Glomerular Filtration Rate 51 BUN/Creatinine Ratio 11 Glucose Level 99 70-105 MG/DL Calcium Level 8.5 8.5-10.1 MG/DL Corrected Calcium 8.7 8.5-10.1 MG/DL Magnesium Level 1.9 1.6-2.4 MG/DL Total Bilirubin 0.7 0.1-1.0 MG/DL Aspartate Amino Transf (AST/SGOT) 43 H 5-34 U/L Alanine Aminotransferase (ALT/SGPT) 64 H 0-55 U/L Alkaline Phosphatase 108 40-136 U/L Troponin I < 0.028 <0.028 NG/ML Total Protein 6.7 6.4-8.2 GM/DL Albumin 3.7 3.2-4.5 GM/DL Amylase Level 77 25-125 U/L Lipase 20 8-78 U/L Urine Color YELLOW Urine Clarity CLEAR Urine pH 6 5-9 Urine Specific [place] 1.015 L 1.016-1.022 Urine Protein NEGATIVE NEGATIVE Urine Glucose (UA) NEGATIVE NEGATIVE Urine Ketones NEGATIVE NEGATIVE Urine Nitrite NEGATIVE NEGATIVE Urine Bilirubin NEGATIVE NEGATIVE Urine Urobilinogen NORMAL NORMAL MG/DL Urine Leukocyte Esterase 1+ H NEGATIVE Urine RBC (Auto) 1+ H NEGATIVE Urine RBC 5-10 H /HPF Urine WBC 2-5 /HPF Urine Squamous Epithelial Cells 2-5 /HPF Urine Crystals NONE /LPF Urine Bacteria TRACE /HPF Urine Casts NONE /LPF Urine Mucus NEGATIVE /LPF Urine Culture Indicated YES My Orders Orders - JEFF SHAW DO Ed Iv/Invasive Line Start (07/08/19 19:10) Ekg Tracing (07/08/19 19:10) Monitor-Rhythm Ecg Trace Only (07/08/19 19:10) Ct Head Wo (07/08/19 19:10) Chest 1 View, Ap/Pa Only (07/08/19 19:10) Amylase (07/08/19 19:10) Cbc With Automated Diff (07/08/19 19:10) Comprehensive Metabolic Panel (07/08/19 19:10) Lipase (07/08/19 19:10) Magnesium (07/08/19 19:10) Protime With Inr (07/08/19 19:10) Partial Thromboplastin Time (07/08/19 19:10) Ua Culture If Indicated (07/08/19 19:10) Troponin I (07/08/19 19:10) Scopolamine Patch (Transderm-Scop Patch) (07/08/19 19:15) Ondansetron Injection (Zofran Injectio (07/08/19 19:15) Ekg Tracing (07/08/19 20:06) Ondansetron Injection (Zofran Injectio (07/08/19 20:15) Meclizine Tablet (Antivert Tablet) (07/08/19 20:15) Urine Culture (07/09/19 04:30) Medications Given in ED Current Medications Medications Dose Ordered Sig/Jesse Route Start Time Stop Time Status Last Admin Dose Admin Ondansetron HCl 8 mg ONCE ONCE IVP 07/08/19 19:15 07/08/19 19:16 DC 07/08/19 19:20 8 MG Scopolamine 1.5 mg ONCE ONCE TD 07/08/19 19:15 07/08/19 19:16 DC 07/08/19 19:20 1.5 MG Vital Signs/I&O 07/08/19 07/08/19 07/08/19 07/08/19 19:08 21:10 21:38 22:00 Temp 37.4 36.6 Pulse 71 58 43 Resp 22 14 18 B/P (MAP) 170/92 (118) 155/89 (118) 139/71 Pulse Ox 92 93 98 96 O2 Delivery Room Air Room Air 07/08/19 07/09/19 07/09/19 07/09/19 23:43 00:02 01:00 03:38 Temp 36.7 Pulse 59 57 67 Resp 14 B/P (MAP) 130/67 (88) Pulse Ox 96 O2 Delivery NIV CPAP NIV CPAP FiO2 21 07/09/19 03:46 Temp 36.2 Pulse 57 Resp 18 B/P (MAP) 111/68 (82) Pulse Ox 96 O2 Delivery NIV CPAP Capillary Refill : Less Than 3 Seconds Blood Pressure Mean: 82 Progress Note : Progress Note 2009--PT IS MUCH CALMER, NO LONGER TREMULOUS. STATES HE IS FEELING BETTER, SMILING, ABLE TO OPEN EYES. NO LONGER NAUSEATED. DIZZINESS IS GETTING BETTER BUT NOT GONE ECG Initial ECG Impression Date: Jul 08, 2019 Initial ECG Impression Time: 19:15 Initial ECG Rate: 58 Initial ECG Rhythm: Normal Sinus (LOW VOLTAGE, PVC'S, NON-SPECIFIC CHANGES) EKG : EKG Time: 20:05 Rate: 51 Rhythm: Normal Sinus ECG Impression: Nonspecific Changes, 1st Degree AV Block Diagnostic Imaging Comments CXR--STABLE/CHRONIC CHANGES CT HEAD--STABLE/CHRONIC CHANGES, NO ACUTE PROCESS PER RADIOLOGIST REPORTS AT 2005 Reviewed: Reviewed by Me Departure Communication (Admissions) 2024--SPOKE WITH DR. MENDENHALL, HOSPITALIST AUTOMOBILE RENTAL AGENT, ACCEPTS PT FOR ADMIT Impression Primary Impression: Vertigo Additional Impressions: BIT SANDER SHUNT IN PLACE FOR NORMAL PRESSURE HYDROCEPHALUS HX OF BASILAR ARTERY ANEURYSM CAD--S/P MULTIPLE INTERVENTIONS Chronic anticoagulation History of atrial fibrillation Frequent falls History of Meniere's disease Chronic renal disease Disposition: 09 ADMITTED INPATIENT Condition: Improved Admissions Decision to Admit Reason: Admit from ER (General) Decision to Admit/Date: Jul 08, 2019 Time/Decision to Admit Time: 20:25 Departure-Patient Inst. Referrals: DAPHNE BHATT MD (PCP) Primary Care Physician JEFF SHAW DO Jul 09, 2019 06:34
[2019-07-09] MEDS: 1/2 NS IV SOLUTION 1,000 ML IV SCH ×2 (07:13→11:45)
[2019-07-09 07:38] LABS: BASOPHILS % (AUTO) 0 % (0-10); EOSINOPHILS # (AUTO) 0.1 10^3/uL (0.0-0.3); EOSINOPHILS % (AUTO) 1 % (0-10); HEMATOCRIT 32 % (40-54); HEMOGLOBIN 10.4 G/DL (13.3-17.7); LYMPHOCYTES # (AUTO) 1.7 X 10^3 (1.0-4.0); LYMPHOCYTES % (AUTO) 29 % (12-44); MEAN CORPUSCULAR HEMOGLOBIN 29 PG (25-34); MEAN CORPUSCULAR HGB CONC 32 G/DL (32-36); MEAN CORPUSCULAR VOLUME 90 FL (80-99); MEAN PLATELET VOLUME 9.6 FL (7.4-10.4); MONOCYTES # (AUTO) 0.4 X 10^3 (0.0-1.0); MONOCYTES % (AUTO) 7 % (0-12); NEUTROPHILS # (AUTO) 3.7 X 10^3 (1.8-7.8); NEUTROPHILS % (AUTO) 63 % (42-75); PLATELET COUNT 209 10^3/uL (130-400); RED CELL DISTRIBUTION WIDTH 15.2 % (10.0-14.5); WHITE BLOOD COUNT 5.9 10^3/uL (4.3-11.0)
[2019-07-09 08:00] VITALS: BP 129/65
[2019-07-09 08:06] LABS: ALBUMIN 3.3 GM/DL (3.2-4.5); CALCIUM 8.6 MG/DL (8.5-10.1); CREATININE SERUM 1.25 MG/DL (0.60-1.30); POTASSIUM 4.7 MMOL/L (3.6-5.0)
[2019-07-09] MEDS ORDERED: AMIODARONE 200 MG (CORDARONE) TAB PO SCH ×2 (09:00→09:48)
--- NOTE | 2019-07-09 09:13 | Short Stay Summary ---
History of Present Illness History of Present Illness Reason for visit/HPI PT IS AN 84 Y/O MALE WHO IS WELL KNOWN TO ME FROM CLINIC AND HIS MULTIPLE HOSPITALIZATIONS. ANA WAS FEELING IN HIS USUAL STATE OF HEALTH YESTERDAY WHEN HE WAS ON HIS WAY TO [place]. WHEN HE GOT OUT OF THE VEHICLE TO GO TO [place] HE STARTED TO FEEL DIZZY. HIS FAMILY REPORTS THAT THEY WERE STANDING AT THE ELEVATOR WAITING TO GO UP TO THE SANCTUARY WHEN HE GOT SO DIZZY THAT HE WAS UNABLE TO STAND ON HIS OWN DESPITE HIS WALKER BEING IN FRONT OF HIM. HIS FAMILY HAD TO SUPPORT HIM AND THEY TRANSPORTED HIM HOME IMMEDIATELY. HIS BLOOD PRESSURE WAS OBTAINED AND IT WAS IN THE 180'S/90 SO HIS FAMILY TRANSPORTED HIM FROM HOME TO THE EMERGENCY DEPARTMENT. HE THEN HAD EXTREME EMESIS IN THE ER AND THEN HE WAS ADMITTED FOR MONITORING. Date of Admission Jul 08, 2019 at 20:10 Date of Discharge 07/09/19 Time Seen by Provider: 17:00 Attending Physician Deneen Fernandez DO Admitting Physician Dpahne Butcher MD Consult Allergies and Home Medications Allergies Coded Allergies: amoxicillin (Verified Allergy, Severe, RASH, pt has received Ancef & Cefepime in the past, 05/25/19) clavulanic acid (Verified Allergy, Severe, RASH, 12/26/18) Iodinated Contrast Media (Verified Allergy, Unknown, 12/26/18) Home Medications Allopurinol 100 Mg Tablet, 100 MG PO DAILY, (Reported) Amiodarone HCl 200 Mg Tablet, 200 MG PO BID, (Reported) Aspirin 325 Mg Tablet.dr, 325 MG PO DAILY, (Reported) Atorvastatin Calcium 80 Mg Tablet, 80 MG PO DAILY, (Reported) Carboxymethylcellulose Sodium 15 Ml Drops, 1 DROP OU DAILY PRN for DRY EYES, (Reported) Cetirizine HCl 10 Mg Tablet, 10 MG PO DAILY, (Reported) Cholecalciferol (Vitamin D3) 5,000 Unit Tablet, 10,000 UNIT PO DAILY, (Reported) Citalopram Hydrobromide 40 Mg Tablet, 40 MG PO HS, (Reported) Docusate Sodium 100 Mg Capsule, 100 MG PO BID PRN for CONSTIPATION-1ST LINE, (Reported) Fluticasone Propionate 9.9 Ml [place].susp, 1 SPRAY NS HS PRN for ALLERGIES, (Reported) Hydrocodone/Acetaminophen 1 Each Tablet, 1 TAB PO Q4H Prescribed by: RYLAND LAU on 05/26/19 0955 Losartan Potassium 50 Mg Tablet, 50 MG PO HS, (Reported) Multivitamin with Minerals 1 Each Tablet, 1 TAB PO DAILY, (Reported) Nitroglycerin 0.4 Mg Tab.subl, 0.4 MG SL UD PRN for CHEST PAIN, (Reported) Oxymetazoline HCl 30 Ml [place], 2-3 SPRAYS NS Q4H PRN for NOSE BLEED, (Reported) Pantoprazole Sodium 40 Mg Tablet.dr, 40 MG PO DAILY, (Reported) Ropinirole HCl 0.25 Mg Tablet, 0.25 MG PO HS, (Reported) Spironolactone 25 Mg Tablet, 25 MG PO DAILY, (Reported) Tamsulosin HCl 0.4 Mg Cap, 0.4 MG PO HS, (Reported) Warfarin Sodium 3 Mg Tablet, 3 MG PO HS, (Reported) Patient Home Medication List Home Medication List Reviewed: Yes Past Zmxjmgs-Ybewhj-Vvtohy Hx Patient Social History Marrital Status: Living Status: LIVES AT HOME WITH 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) Alcohol Use: Denies Use Recreational Drug Use: No Smoking Status: Former Smoker Type Used: Cigarettes 2nd Hand Smoke Exposure: No Physical Abuse Screen: No Sexual Abuse: No Recent Foreign Travel: No Contact w/other who traveled: No Recent Hopitalizations: No (12/2018-DIVERTICULITIS/GI BLEED - 03/2019 NPH WITH MICROBIOLOGY MANAGER SHUNT) Recent Infectious Disease Expo: No Immunizations Up To Date Date of Pneumonia Vaccine: Jul 17, 2018 Date of Influenza Vaccine: Jul 08, 2018 Seasonal Allergies Seasonal Allergies: Yes Surgeries Yes (CARDIAC STENTS X 10 OR 11; CARDIAC ANGIOPLASTIES; BILATERAL INGUINAL HERNIA REPAIRS; RIGHT COCHLEAR IMPLANT; AAA REPAIR WITH ENDOGRAFT; MICROBIOLOGY MANAGER SHUNT 03/29/19; SURGICAL CAUTERIZATION OF NOSEBLEED 05/24/19) Angioplasty, Brain Shunt, Cardiac, Coronary Stent, Ear Surgery, Gallbladder, Neurological, Nose, Vascular Surgery Respiratory Yes (USES CPAP) COPD, Sleep Apnea Currently Using CPAP: Yes Currently Using BIPAP: No Cardiovascular Yes (CARDIAC STENTS X 10 OR 11 TOTAL; 5 CARDIAC ANGIOPLASTIES; AAA REPAIR WITH ENDOGRAFT; ISCHEMIC CARDIOMYOPATHY; BASILAR ARTERY CEREBRAL ANEURYSM) Aneurysm, Atrial Fibrillation, Cardiomyopathy, Chronic Edema/Swelling, Coronary Artery Disease, High Cholesterol, Hypertension, Peripheral Vascular Neurological Yes (MENIERE'S; BASILAR ARTERY ANEURYSM-BEING MONITORED; NORMAL PRESSURE HYDROCEPHALUS WITH MICROBIOLOGY MANAGER SHUNT 03/29/19; BALANCE ISSUES; RESTLESS LEG SYNDROME) Vertigo Reproductive System Hx Reproductive Disorders: No Sexually Transmitted Disease: No HIV/AIDS: No Genitourinary Yes (CHRONIC RENAL INSUFFICIENCY) Benign Prostatic Hyperpl, Kidney Stones, Renal Failure Gastrointestinal Yes (DIVERTICULITIS WITH GI BLEEDING 12/2018) Abdominal Hernia, Gastrointestinal Bleed, Diverticulosis Musculoskeletal Yes (RESTLESS LEG SYNDROME; GAIT DISTURBANCE; FALLS) Arthritis, Gout (?) Endocrine History of Endocrine Disorders: No HEENT History of HEENT Disorders: Yes (READING GLASSES; MENIERE'S DISEASE; RIGHT COCHLEAR IMPLANT; HEARING AID ON LEFT; NOSEBLEEDS) Loss of Vision: Bilateral Hearing Impairment: Hard of Hearing, Hearing Aide Left Cancer No Psychosocial History of Psychiatric Problem: Yes Behavioral Health Disorders: Depression Integumentary History of Skin or Integumenta: No Blood Transfusions History of Blood Disorders: No Adverse Reaction to a Blood Tr: No (N/A) Reviewed Nursing Assessment Reviewed/Agree w Nursing PMH: Yes Family Medical History Significant Family History: Heart Disease, Hypertension Review of Systems Constitutional: No chills, No fever, No malaise; weakness EENTM: hearing loss; No hoarseness, No throat pain Respiratory: No cough, No dyspnea on exertion, No short of breath Cardiovascular: No chest pain, No palpitations Gastrointestinal: No abdominal pain, No nausea (RESOLVED IN THE ER), No vomiting (RESOLVED IN THE ER) Genitourinary: no symptoms reported Musculoskeletal: muscle weakness Skin: other (ABRASION ON KNEE FROM RECENT FALL) Psychiatric/Neurological: Denies Anxiety; Depressed, Weakness, Other (VERTIGO) All Other Systems Reviewed Negative Unless Noted: Yes Physical Exam Vital Signs Vital Signs - First Documented 07/08/19 07/08/19 07/09/19 19:08 21:38 03:38 Temp 37.4 Pulse 71 Resp 22 B/P (MAP) 170/92 (118) Pulse Ox 92 O2 Delivery Room Air FiO2 21 Capillary Refill : Less Than 3 Seconds Height, Weight, BMI Height: 6'0.00" Weight: 206lbs. 5.8oz. [id number]; 27.86 BMI Method:Stated General Appearance: No Apparent Distress, WD/WN HEENT: PERRL/EOMI, Pharynx Normal, Other (COCHLEAR IMPLANT ON RIGHT SCALP ABOVE RIGHT EAR) Neck: Full Range of Motion, Non Tender, Supple Respiratory: Chest Non Tender, Lungs Clear, Normal Breath Sounds, No Accessory Muscle Use, No Respiratory Distress Cardiovascular: Regular Rate, Rhythm, Normal Peripheral Pulses, Systolic Murmur Gastrointestinal: Normal Bowel Sounds, No Organomegaly, No Pulsatile Mass, Non Tender, Soft Rectal: Deferred Back: Normal Inspection, No Vertebral Tenderness Extremity: Normal Capillary Refill, Normal Range of Motion, Non Tender, No Calf Tenderness, No Pedal Edema Neurologic/Psychiatric: Alert, Oriented x3, Normal Mood/Affect, residential therapist II-XII Norm as Tested (WITH DECREASE IN HEARING - BUT IMPROVED WITH COCHLEAR IMPLANT) Skin: Normal Color, Warm/Dry, Other (ABRASION ON LEFT KNEE) Lymphatic: No Adenopathy Clinical Quality Measures DVT/VTE Risk/Contraindication: Risk Factor Score Per Nursin RFS Level Per Nursing on Admit: 4+=Very High Short Stay Diagnosis Discharge Diagnosis-Short Stay Admission Diagnosis: VERTIGO HYPERTENSION WEAKNESS HYDROCEPHALUS ELEVATED LIVER ENZYMES Final Discharge Diagnosis: VERTIGO HYPERTENSION WEAKNESS HYDROCEPHALUS ELEVATED LIVER ENZYMES Conclusion Labs Laboratory Tests 07/08/19 19:15: White Blood Count 7.4, Red Blood Count 3.91L, Hemoglobin 11.3L, Hematocrit 35L, Mean Corpuscular Volume 89, Mean Corpuscular Hemoglobin 29, Mean Corpuscular Hemoglobin Concent 33, Red Cell Distribution Width 15.1H, Platelet Count 256, Mean Platelet Volume 9.6, Neutrophils (%) (Auto) 57, Lymphocytes (%) (Auto) 32, Monocytes (%) (Auto) 9, Eosinophils (%) (Auto) 2, Basophils (%) (Auto) 0, Neutrophils # (Auto) 4.2, Lymphocytes # (Auto) 2.4, Monocytes # (Auto) 0.7, Eosinophils # (Auto) 0.1, Basophils # (Auto) 0.0, Prothrombin Time 35.9H, INR Comment 3.4H, Activated Partial Thromboplast Time 56H, Sodium Level 139, Potassium Level 4.0, Chloride Level 106, Carbon Dioxide Level 20L, Anion Gap 13, Blood Urea Nitrogen 15, Creatinine 1.34H, Estimat Glomerular Filtration Rate 51, BUN/Creatinine Ratio 11, Glucose Level 99, Calcium Level 8.5, Corrected Calcium 8.7, Magnesium Level 1.9, Total Bilirubin 0.7, Aspartate Amino Transf (AST/SGOT) 43H, Alanine Aminotransferase (ALT/SGPT) 64H, Alkaline Phosphatase 108, Troponin I < 0.028, Total Protein 6.7, Albumin 3.7, Amylase Level 77, Lipase 20 07/09/19 04:30: Urine Color YELLOW, Urine Clarity CLEAR, Urine pH 6, Urine Specific [place] 1.015L, Urine Protein NEGATIVE, Urine Glucose (UA) NEGATIVE, Urine Ketones NEGATIVE, Urine Nitrite NEGATIVE, Urine Bilirubin NEGATIVE, Urine Urobilinogen NORMAL, Urine Leukocyte Esterase 1+H, Urine RBC (Auto) 1+H, Urine RBC 5-10H, Urine WBC 2-5, Urine Squamous Epithelial Cells 2-5, Urine Crystals NONE, Urine Bacteria TRACE, Urine Casts NONE, Urine Mucus NEGATIVE, Urine Culture Indicated YES 07/09/19 07:28: White Blood Count 5.9, Red Blood Count 3.57L, Hemoglobin 10.4L, Hematocrit 32L, Mean Corpuscular Volume 90, Mean Corpuscular Hemoglobin 29, Mean Corpuscular Hemoglobin Concent 32, Red Cell Distribution Width 15.2H, Platelet Count 209, Mean Platelet Volume 9.6, Neutrophils (%) (Auto) 63, Lymphocytes (%) (Auto) 29, Monocytes (%) (Auto) 7, Eosinophils (%) (Auto) 1, Basophils (%) (Auto) 0, Neutrophils # (Auto) 3.7, Lymphocytes # (Auto) 1.7, Monocytes # (Auto) 0.4, Eosinophils # (Auto) 0.1, Basophils # (Auto) 0.0, Sodium Level 139, Potassium Level 4.7, Chloride Level 107, Carbon Dioxide Level 23, Anion Gap 9, Blood Urea Nitrogen 14, Creatinine 1.25, Estimat Glomerular Filtration Rate 55, BUN/Creatinine Ratio 11, Glucose Level 81, Calcium Level 8.6, Corrected Calcium 9.2, Total Bilirubin 1.0, Aspartate Amino Transf (AST/SGOT) 40H, Alanine Aminotransferase (ALT/SGPT) 60H, Alkaline Phosphatase 96, Total Protein 6.0L, Albumin 3.3 Conclusion/Plan VERTIGO HYPERTENSION WEAKNESS HYDROCEPHALUS ELEVATED LIVER ENZYMES VERTIGO - START PHYSICAL THERAPY - WILL DISCHARGE ANA WITH SCOPOLAMINE PATCHES - AND HE WILL CONTINUE WITH PHYSICAL THERAPY OUTPATIENT WITH SIRENA'S. HYPERTENSION - IMPROVED AFTER ADMISSION - CONTINUE WITH HOME REGIMEN WEAKNESS AND HYDROCEPHALUS - SHUNT IN PLACE, WILL NEED TO CONTINUE WITH THERAPY - DISCUSSED WITH PT AND HIS AND DTR THAT HE NEEDS TO BE MORE ACTIVE AT HOME TO IMPROVE HIS STRENGTH TO HELP PREVENT FALLING EPISODES. 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
[2019-07-09] MEDS ORDERED: SCOP1PAT11 TOP (09:26)
[2019-07-09] MEDS ORDERED: MECL-106 PO (09:26)
--- NOTE | 2019-07-09 09:27 | Discharge Inst-Complex ---
PDI Reconcile Patient Problems Problems Reviewed?: Yes Med Rec & Follow Up Appt. New Medications: Meclizine HCl (Meclizine HCl) 25 Mg Tablet 25 MG PO Q4H PRN for DIZZINESS, #30 TAB 2 Refills Scopolamine (Transderm-Scop) 1 Each Patch.td72 1.5 MG TOP Q72H, #12 PATCH 4 Refills Continued Medications: Allopurinol (Allopurinol) 100 Mg Tablet 100 MG PO DAILY, TAB Amiodarone HCl (Amiodarone HCl) 200 Mg Tablet 200 MG PO BID, TAB Aspirin (Aspirin EC) 325 Mg Tablet.dr 325 MG PO DAILY, TAB Atorvastatin Calcium (Atorvastatin Calcium) 80 Mg Tablet 80 MG PO DAILY, TAB Carboxymethylcellulose Sodium (Refresh Tears) 15 Ml Drops 1 DROP OU DAILY PRN for DRY EYES, DROPS Cetirizine HCl (Zyrtec) 10 Mg Tablet 10 MG PO DAILY, TAB Cholecalciferol (Vitamin D3) (Vitamin D3) 5,000 Unit Tablet 18296 UNIT PO DAILY, TAB Citalopram Hydrobromide (Citalopram HBr) 40 Mg Tablet 40 MG PO HS, TAB Docusate Sodium (Colace) 100 Mg Capsule 100 MG PO BID PRN for CONSTIPATION-1ST LINE, CAP Fluticasone Propionate (Flonase Allergy Relief) 9.9 Ml [place].susp 1 SPRAY NS HS PRN for ALLERGIES, EA Hydrocodone/Acetaminophen (Hydrocodone-Acetamin 5-325 mg) 1 Each Tablet 1 TAB PO Q4H for PAIN-MODERATE, #30 TAB Losartan Potassium (Losartan Potassium) 50 Mg Tablet 50 MG PO HS, TAB Multivitamin with Minerals (Multivitamins with Minerals) 1 Each Tablet 1 TAB PO DAILY, TAB Nitroglycerin (Nitroglycerin) 0.4 Mg Tab.subl 0.4 MG SL UD PRN for CHEST PAIN, TAB Oxymetazoline HCl (Original Nasal [place]) 30 Ml [place] 2-3 SPRAYS NS Q4H PRN for NOSE BLEED, EA Pantoprazole Sodium (Pantoprazole Sodium) 40 Mg Tablet.dr 40 MG PO DAILY, TAB Ropinirole HCl (Ropinirole HCl) 0.25 Mg Tablet 0.25 MG PO HS, TAB Spironolactone (Spironolactone) 25 Mg Tablet 25 MG PO DAILY, TAB Tamsulosin HCl (Flomax) 0.4 Mg Cap 0.4 MG PO HS, CAP Warfarin Sodium (Warfarin Sodium) 3 Mg Tablet 3 MG PO HS, TAB Prescription: Transmitted to Pharmacy Patient Instructions: CALL [facility] TO RESTART THERAPY ON DISCHARGE [facility] FOLLOW UP IN ONE WEEK Activity, Diet and PDI Resume Normal Activity: Yes Discharge Diet: Regular Diet Diet for 24 Hours: No Alcohol Diet After 24 Hours: Clear Liquid if Nauseous Drink 6-8 Glasses of Fluid/Day: Yes Driving Instructions: No Driving/Refer to Return to The Hospital For: ANY CONCERN FOR LIFETHREATENING ILLNESS, INJURY OR OTHER ACUTE EMERGENT CONCERNS Symptoms to Reoprt to : Appetite Changes, Fever Over 101 Degrees F, Pain/Pressure in Chest, Cough Up/Vomit Blood, Pain/Pressure in Jaw, Dizziness/Fainting, Shortness of Breath For Problems or Questions: Contact Your Physician, Go to Emergency Room DAPHNE BHATT MD Jul 09, 2019 09:27
[2019-07-09] MEDS ORDERED: ASPIRIN E.C. 325 MG (ECOTRIN) TABLET PO SCH (09:36)
[2019-07-09] MEDS ORDERED: PANTOPRAZOLE 40 MG (PROTONIX) TAB PO SCH (09:38)
[2019-07-09] MEDS ORDERED: SPIRONOLACTONE 25 MG (ALDACTONE) TAB PO SCH (09:40)
[2019-07-09] MEDS ORDERED: ALLOPURINOL 100 MG (ZYLOPRIM) TAB PO SCH (10:00)
--- NOTE | 2019-07-09 11:53 | Physical Therapy Evaluation ---
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 Patient completes activity by themselves 4 Supervision or touching assist (CGA). [place] provide cues , steadying assist 3 The helper provides less than half the effort to complete the activity 2 The helper provides more than half the effort to complete the activity 1 Dependent. The helper does all the effort to complete an activity 7 Patient refused to complete or attempt activity 9 The patient did not perform the activity before the current illness or injury 88 Not attempted due to Medical conditions or safety concerns Functional Abilities and Goals: Independent: Patient completed the activities by him/herself, with or without an assistive device, with no assistance from a helper. Needed Some Help: Patient needed partial assistance from another person to complete activities. Dependent: A helper completed the activities for the patient. Unknown: Not Applicable: Bed Mobility: 6 Transfers (B,C,W/C) (FIM): 6 Gait: 6 Stairs: 0 Indoor Mobility (Ambulation): Independent Stairs: Not [place] Prior Devices Use: Walker PT Evaluation-Current Subjective Patient and spouse report he have seen receiving outpatient PT and will continue upon dismissal. Patient agrees to PT. Denies dizziness. Pain Numeric Pain Scale: 0-No Pain Location: No Pain Reported Objective Patient Orientation: Normal For Age Problem Solving: Fair Attachments: IV ROM/Strength ROM Lower Extremities bilateral LE WFL Strength Lower Extremities 4+/5 all planes bilaterally with MMT Integumentary/Posture Integumentary refer to nursing notes Bowel Incontinence: No Bladder Incontinence: No Posture WFL Neuromuscular (Tone, Coordination, Reflexes) grossly intact Sensory Vision: Functional Hearing: Hearing Aid/Aides (and right cochlear implant) Sensation Right Lower Extremit: Impaired Sensation Left Lower Extremity: Impaired Transfers Therapy Code Descriptions/Definitions Functional [place] Measure: 0=Not Assessed/NA 4=Minimal Assistance 1=Total Assistance 5=Supervision or Setup 2=Maximal Assistance 6=Modified [place] 3=Moderate Assistance 7=Complete [place] Transfers (B, C, W/C) (FIM): 5 Scootin Rollin Supine to/from Sit: 5 Sit to/from Stand: 5 Gait Mode of Locomotion: Walk Anticipated Mode of Locomotion: Walk Gait (FIM): 5 Distance (FIM): 3=150 ft Distance: 225' Gait Level of Assist: 5 Comments/Gait Description rapid pace with VC's to slow yanelis to decrease fall risk Balance Sitting Static: Normal Sitting Dynamic: Normal Standing Static: Good Standing Dynamic: Good Assessment/Needs 84 y.o. male, will be seen short term by skilled PT to address functional mobility. Patient currently denies Vertigo symptoms/dizziness. Patient has had multiple surgical procedures this year requiring anesthetic. Rehab Potential: Fair PT Short Term Goals Short Term Goals Time Frame: Jul 13, 2019 Transfers (B,C,W/C) (FIM): 6 Gait (FIM): 6 Distance (FIM): 3=150 ft Gait Level of Assist: 6 Gait Assistive Device: FWW PT Plan Problem List Problem List: Activity Tolerance Treatment/Plan Treatment Plan: Continue Plan of Care Treatment Plan: Education, Functional Activity Ronit, Functional Strength, Gait, Safety, Therapeutic Exercise Treatment Duration: Jul 13, 2019 Frequency: 5 times per week Estimated Hrs Per Day: .25 hour per day Patient and/or Family Agrees t: Yes Discharge Recommendations Therapy Discharge Recommendati: Post Acute PT (continue outpatient PT) Time/GCodes Time In: 1120 Time Out: 1142 Total Billed Treatment Time: 22 Total Billed Treatment 1 visit EVModC 22 min ANITA LEE PT Jul 09, 2019 11:53
[2019-07-09 12:00] VITALS: BP 112/58
--- NOTE | 2019-07-09 12:45 | NUR ---
PT FAMILY REQUEST THAT BP BE TAKEN. PT BP 95/58; CUFF ADJUSTED, BP RETAKEN AND IS 101/58. CONTACTED AND INFORMED OF BP; NEW ORDER FOR 500ML BOLUS OF NORMAL SALINE.
[2019-07-09] MEDS ORDERED: NS IV 500 ML 500 ML IV ONE (13:00)
--- NOTE | 2019-07-09 13:09 | NUR ---
Initial visit with the pt while he was walking with PT in the hallway. I engaged in rapport building and supportive conversation. The pt shared he is [employer].
[2019-07-09 15:55] VITALS: BP 112/58
--- NOTE | 2019-07-09 16:29 | NUR ---
provided prayer, Communion and blessing.
[2019-07-09] MEDS ORDERED: rOPINIRole 0.25 MG (REQUIP) TAB PO SCH ×2 (21:00)
[2019-07-09] MEDS ORDERED: LOSARTAN 50 MG (COZAAR) TAB PO SCH (21:00)
[2019-07-09] MEDS ORDERED: warFARin 3 MG (COUMADIN) TAB PO SCH ×2 (21:00)
[2019-07-09] MEDS ORDERED: CITALOPRAM 40 MG PO SCH (21:00)
[2019-07-09] MEDS ORDERED: TAMSULOSIN 0.4 MG (FLOMAX) CAP PO SCH ×2 (21:00)
[2019-07-11] MEDS ORDERED: SCOPOLAMINE 1.5 MG (TRANSDERM-SCOP) PATCH TOP SCH (21:00)
== END 2019-07-09 09:24 | disposition home or self-care (01) ==
LOC: EDUNIT# 19:05 → ER 19:07 → 4TH 20:10 → UNDOADMOB 20:10 → 4TH 21:28 → UNDODISOB 07-09 16:35
PROVIDERS: ADMIT Internal Medicine; ATTEND Internal Medicine
DX: R42 Dizziness and giddiness (principal); I25.10 Atherosclerotic heart disease of native coronary artery without angina pectoris; I13.10 Hypertensive heart and chronic kidney disease without heart failure, with stage 1 through stage 4 chronic kidney disease, or unspecified chronic kidney disease; I48.91 Unspecified atrial fibrillation; N18.9 Chronic kidney disease, unspecified; J30.9 Allergic rhinitis, unspecified; M19.90 Unspecified osteoarthritis, unspecified site; F32.9 Major depressive disorder, single episode, unspecified; R29.6 Repeated falls; J44.9 Chronic obstructive pulmonary disease, unspecified; G47.30 Sleep apnea, unspecified; G91.9 Hydrocephalus, unspecified; Z88.8 Allergy status to other drugs, medicaments and biological substances; Z88.1 Allergy status to other antibiotic agents; Z91.041 Radiographic dye allergy status; Z79.82 Long term (current) use of aspirin; Z79.899 Other long term (current) drug therapy; Z79.01 Long term (current) use of anticoagulants; Z87.891 Personal history of nicotine dependence; Z95.5 Presence of coronary angioplasty implant and graft; Z95.1 Presence of aortocoronary bypass graft; Z79.891 Long term (current) use of opiate analgesic
CPT/HCPCS: 36415; 70450; 71045; 80053; 81000; 82150; 83690; 83735; 84484; 85025; 85610; 85730; 87077; 87088; 87186; 93005; 93041; 96374; 96376; G0378

== ENCOUNTER → 2019-08-16 | Outpatient (CLI) | payer MEDICARE ==
[~2019-08-16] MED LIST changes: +ATOR40TA70 PO; +BARIUM SUSPENSION 105% (LIQUID POLIBAR PLUS) 240 ML/DOSE PO ONE; +BARIUM SUSPENSION 60% (LIQUID EZ PAQUE) 240 ML DOSE PO ONE; +CHOL20003 PO; +CITA20TA12 PO; +CITA40TA19 PO; +FINA5TAB6 PO; +LEVE500T99 PO; +MECL-106 PO; +MULT-1029 PO; +SCOP1PAT11 TOP; +SENN-40 PO; -TAMS0.4C98 PO; +TMSL.4C PO
--- NOTE | 2019-08-16 11:17 | Diagnostic Imaging Report ---
INDICATION: Dysphasia. Patient ingested effervescent crystals as well as thin and thick barium and imaging of the esophagus was performed. Total of 1 minute and 5 seconds of fluoroscopic time was utilized. Preliminary radiograph of the chest is without acute abnormality. Tubing courses over the left chest. Esophagus has a fairly smooth contour. No mass or stricture is identified. There is a diffuse esophageal dysmotility with tertiary contractions present on all swallows. Moderate-sized hiatal hernia is present. No gastroesophageal reflux was demonstrated. IMPRESSION: Esophageal dysmotility and hiatal hernia. No mass or stricture is identified. Dictated by: Dictated on workstation # [id number]
== END ==
LOC: RAD 09:50
PROVIDERS: ATTEND Nurse Practitioner Family
DX: K44.9 Diaphragmatic hernia without obstruction or gangrene (principal); K22.8 Other specified diseases of esophagus
CPT/HCPCS: 74220

== ENCOUNTER 2019-09-12 18:59 | Emergency (ER) | payer MEDICARE ==
[~2019-09-12] VITALS: Ht 182.9 cm; Wt 96.8 kg
[~2019-09-12 18:59] MED LIST changes: -ATOR40TA70 PO; -BARIUM SUSPENSION 105% (LIQUID POLIBAR PLUS) 240 ML/DOSE PO ONE; -BARIUM SUSPENSION 60% (LIQUID EZ PAQUE) 240 ML DOSE PO ONE; -CHOL20003 PO; -CITA20TA12 PO; -CITA40TA19 PO; -FINA5TAB6 PO; -LEVE500T99 PO; -MULT-1029 PO; -SENN-40 PO; +TAMS0.4C98 PO; -TMSL.4C PO
--- NOTE | 2019-09-12 19:15 | NUR ---
See list for current medications.
--- NOTE | 2019-09-12 19:49 | ED Cough/URI ---
General Chief Complaint: Fever-Adult/Adol Stated Complaint: FEVER Nursing Triage Note: Pt to triage via ED w/c by family with c/o lethragy, delirium, dizziness, and decreased fluid intake. @ side reports increase in severity of symptoms throughout this week. Daughter @ side reports fever of 102.5 @1840 that developed on this day. Pt denies pain or cough. Pt states, "I just feel so tired." Pt afebrile with oral temp 37.0. Sepsis Screen: No Definite Risk Source: patient, family Exam Limitations: no limitations History of Present Illness Date Seen by Provider: Sep 12, 2019 Time Seen by Provider: 19:47 Initial Comments To ER by and daughter with reports of general malaise not wanting to get out of bed since yesterday, fever today up to 102, delirium, decreased fluid intake. Timing/Duration: constant, yesterday, getting worse Severity/Quality: moderate Associated Symptoms: cough, fever/chills, shortness of breath Allergies and Home Medications Allergies Coded Allergies: amoxicillin (Verified Allergy, Severe, RASH, pt has received Ancef & Cefep tory in the past, 05/25/19) clavulanic acid (Verified Allergy, Severe, RASH, 12/26/18) Iodinated Contrast Media (Verified Allergy, Unknown, 12/26/18) Home Medications Allopurinol 100 Mg Tablet, 100 MG PO DAILY, (Reported) Amiodarone HCl 200 Mg Tablet, 200 MG PO BID, (Reported) Aspirin 325 Mg Tablet.dr, 325 MG PO DAILY, (Reported) Atorvastatin Calcium 80 Mg Tablet, 80 MG PO DAILY, (Reported) Carboxymethylcellulose Sodium 15 Ml Drops, 1 DROP OU DAILY PRN for DRY EYES, (Reported) Cetirizine HCl 10 Mg Tablet, 10 MG PO DAILY, (Reported) Cholecalciferol (Vitamin D3) 5,000 Unit Tablet, 10,000 UNIT PO DAILY, (Reported) Citalopram Hydrobromide 40 Mg Tablet, 40 MG PO HS, (Reported) Docusate Sodium 100 Mg Capsule, 100 MG PO BID PRN for CONSTIPATION-1ST LINE, (Reported) Fluticasone Propionate 9.9 Ml [place].susp, 1 SPRAY NS HS PRN for ALLERGIES, (Reported) Hydrocodone/Acetaminophen 1 Each Tablet, 1 TAB PO Q4H Prescribed by: RYLAND LAU on 05/26/19 09 Losartan Potassium 50 Mg Tablet, 50 MG PO HS, (Reported) Meclizine HCl 25 Mg Tablet, 25 MG PO Q4H PRN for DIZZINESS Prescribed by: DAPHNE BHATT on 07/09/19925 Multivitamin with Minerals 1 Each Tablet, 1 TAB PO DAILY, (Reported) Nitroglycerin 0.4 Mg Tab.subl, 0.4 MG SL UD PRN for CHEST PAIN, (Reported) Oxymetazoline HCl 30 Ml [place], 2-3 SPRAYS NS Q4H PRN for NOSE BLEED, (Reported) Pantoprazole Sodium 40 Mg Tablet.dr, 40 MG PO DAILY, (Reported) Ropinirole HCl 0.25 Mg Tablet, 0.25 MG PO HS, (Reported) Scopolamine 1 Each Patch.td72, 1.5 MG TOP Q72H Prescribed by: DAPHNE BHATT on 07/09/19925 Spironolactone 25 Mg Tablet, 25 MG PO DAILY, (Reported) Tamsulosin HCl 0.4 Mg Cap, 0.4 MG PO HS, (Reported) Warfarin Sodium 3 Mg Tablet, 3 MG PO HS, (Reported) Patient Home Medication List Home Medication List Reviewed: Yes Review of Systems Review of Systems Constitutional: see HPI, fever EENTM: see HPI Respiratory: no symptoms reported Cardiovascular: no symptoms reported Genitourinary: no symptoms reported Musculoskeletal: no symptoms reported Skin: no symptoms reported Psychiatric/Neurological: No Symptoms Reported Hematologic/Lymphatic: No Symptoms Reported Immunological/Allergic: no symptoms reported Past Cueffik-Noyclz-Hpdzez Hx Patient Social History Alcohol Use: Denies Use Recreational Drug Use: No Smoking Status: Former Smoker Type Used: Cigarettes 2nd Hand Smoke Exposure: No Recent Foreign Travel: No Contact w/Someone Who Travel: No Recent Infectious Disease Expo: No Recent Hopitalizations: No (12/2018-DIVERTICULITIS/GI BLEED - 03/2019 [facility] WITH [facility]) Immunizations Up To Date Date of Pneumonia Vaccine: Jul 17, 2018 Date of Influenza Vaccine: Jul 08, 2018 Seasonal Allergies Seasonal Allergies: Yes Past Medical History Surgeries: Yes Angioplasty, Brain Shunt, Cardiac, Coronary Stent, Ear Surgery, Gallbladder, Neurological, Nose, Vascular Surgery Respiratory: Yes (USES CPAP) Sleep Apnea Currently Using CPAP: Yes Currently Using BIPAP: No Cardiac: Yes Aneurysm, Atrial Fibrillation, Cardiomyopathy, Chronic Edema/Swelling, Coronary Artery Disease, High Cholesterol, Hypertension, Peripheral Vascular Neurological: Yes Vertigo Reproductive Disorders: No Sexually Transmitted Disease: No HIV/AIDS: No Genitourinary: Yes (CHRONIC RENAL INSUFFICIENCY) Benign Prostatic Hyperpl, Kidney Stones, Renal Failure Gastrointestinal: Yes (DIVERTICULITIS WITH GI BLEEDING 12/2018) Abdominal Hernia, Gastrointestinal Bleed, Diverticulosis Musculoskeletal: Yes (RESTLESS LEG SYNDROME; GAIT DISTURBANCE; FALLS) Arthritis, Gout Endocrine: No HEENT: Yes Loss of Vision: Bilateral Hearing Impairment: Hard of Hearing, Hearing Aide Left Cancer: No Psychosocial: Yes Depression Integumentary: No Blood Disorders: No Adverse Reaction/Blood Tranf: No (N/A) Family Medical History Heart Disease, Hypertension Physical Exam Vital Signs - First Documented 09/12/19 19:10 Temp 37.0 Pulse 80 Resp 20 B/P (MAP) 104/71 (82) Pulse Ox 94 O2 Delivery Room Air Capillary Refill : Less Than 3 Seconds Height: 6'0.00" Weight: 206lbs. 5.8oz. 93.011711yw; 28.00 BMI Method:Stated General Appearance: WD/WN, no apparent distress, other (he is alert, looking around the room, very hard of hearing. Asked what holiday is tomorrow and he states that it's Thanksving. He knows that he is in the hospital right now. When asked what year it is he states 2011. He does seem a bit agitated.) Eyes: Bilateral Eye Normal Inspection, Bilateral Eye PERRL, Bilateral Eye EOMI HEENT: PERRL/EOMI, normal ENT inspection Neck: non-tender, full range of motion Respiratory: normal breath sounds, no respiratory distress, no accessory muscle use Cardiovascular: regular rate, rhythm, no murmur Gastrointestinal: normal bowel sounds, non tender, soft Extremities: normal range of motion, non-tender Neurologic/Psychiatric: alert Skin: normal color, warm/dry, other (small abrasion left anterior lower leg, daughter states this must have happened in route to the hospital or since he's been here, scraped it on something most likely.) Focused Exam Lactate Level 09/12/19 19:45: Lactic Acid Level 1.80 Lactic Acid Level Laboratory Tests Test 09/12/19 19:45 Lactic Acid Level 1.80 MMOL/L (0.50-2.00) Progress/Results/Core Measures Suspected Sepsis Recent Fever Within 48 Hours: Yes Infection Criteria Present: Suspected New Infection New/Unexplained Altered Menta: No Sepsis Screen: No Definite Risk SIRS Temperature: Pulse: 80 Respiratory Rate: 20 Laboratory Tests 09/12/19 19:45: White Blood Count 9.1 Blood Pressure 104 /71 Mean: 82 09/12/19 19:45: Lactic Acid Level 1.80 Laboratory Tests 09/12/19 19:45: Creatinine 1.65H, Platelet Count 294, Total Bilirubin 1.6H 09/12/19 19:55: INR Comment 2.7H Results/Orders Lab Results Laboratory Tests Test 09/12/19 19:45 09/12/19 19:55 Range/Units White Blood Count 9.1 4.3-11.0 10^3/uL Red Blood Count 4.02 L 4.35-5.85 10^6/uL Hemoglobin 11.3 L 13.3-17.7 G/DL Hematocrit 34 L 40-54 % Mean Corpuscular Volume 86 80-99 FL Mean Corpuscular Hemoglobin 28 25-34 PG Mean Corpuscular Hemoglobin Concent 33 32-36 G/DL Red Cell Distribution Width 16.2 H 10.0-14.5 % Platelet Count 294 130-400 10^3/uL Mean Platelet Volume 9.2 7.4-10.4 FL Neutrophils (%) (Auto) 71 42-75 % Lymphocytes (%) (Auto) 19 12-44 % Monocytes (%) (Auto) 9 0-12 % Eosinophils (%) (Auto) 0 0-10 % Basophils (%) (Auto) 0 0-10 % Neutrophils # (Auto) 6.5 1.8-7.8 X 10^3 Lymphocytes # (Auto) 1.7 1.0-4.0 X 10^3 Monocytes # (Auto) 0.8 0.0-1.0 X 10^3 Eosinophils # (Auto) 0.0 0.0-0.3 10^3/uL Basophils # (Auto) 0.0 0.0-0.1 10^3/uL Sodium Level 135 135-145 MMOL/L Potassium Level 4.1 3.6-5.0 MMOL/L Chloride Level 101 98-107 MMOL/L Carbon Dioxide Level 22 21-32 MMOL/L Anion Gap 12 5-14 MMOL/L Blood Urea Nitrogen 18 7-18 MG/DL Creatinine 1.65 H 0.60-1.30 MG/DL Estimat Glomerular Filtration Rate 40 BUN/Creatinine Ratio 11 Glucose Level 108 H 70-105 MG/DL Lactic Acid Level 1.80 0.50-2.00 MMOL/L Calcium Level 9.2 8.5-10.1 MG/DL Corrected Calcium 9.2 8.5-10.1 MG/DL Total Bilirubin 1.6 H 0.1-1.0 MG/DL Aspartate Amino Transf (AST/SGOT) 42 H 5-34 U/L Alanine Aminotransferase (ALT/SGPT) 51 0-55 U/L Alkaline Phosphatase 122 40-136 U/L Total Protein 7.3 6.4-8.2 GM/DL Albumin 4.0 3.2-4.5 GM/DL Prothrombin Time 30.1 H 12.2-14.7 SEC INR Comment 2.7 H 0.8-1.4 Micro Results Microbiology 09/12/19 Influenza Types A,B Antigen (NERIS) - Final, Complete My Orders Orders - KHLOE ROA APRN Influenza A And B Antigens (09/12/19 19:31) Cbc With Automated Diff (09/12/19 19:31) Comprehensive Metabolic Panel (09/12/19 19:31) Ua Culture If Indicated (09/12/19 19:31) Chest 1 View, Ap/Pa Only (09/12/19 19:31) Ed Iv/Invasive Line Start (09/12/19 19:31) Blood Culture (09/12/19 19:31) Lactic Acid Analyzer (09/12/19 19:31) Ct Head Wo (09/12/19 19:35) Ns Iv 1000 Ml (Sodium Chloride 0.9%) (09/12/19 20:00) Ropinirole Tablet (Requip Tablet) (09/12/19 20:00) Protime With Inr (09/12/19 20:33) Human Prothrombin Complx(Pcc) (Kcentra K (09/12/19 20:45) Medications Given in ED Current Medications Medications Dose Ordered Sig/Jesse Route Start Time Stop Time Status Last Admin Dose Admin Ropinirole HCl 0.25 mg ONCE ONCE PO 09/12/19 20:00 09/12/19 20:01 DC 09/12/19 20:03 0.25 MG Vital Signs/I&O 09/12/19 19:10 Temp 37.0 Pulse 80 Resp 20 B/P (MAP) 104/71 (82) Pulse Ox 94 O2 Delivery Room Air Capillary Refill : Less Than 3 Seconds Blood Pressure Mean: 82 POS Diagnostic Imaging Diagonstic Imaging: CT Plain Films/CT/US/NM/MRI: head Comments NAME: ANA WALKER [facility] REC#: [id number] PT STATUS: REG ER : 1935 PHYSICIAN: KHLOE ROA APRN ADMIT DATE: 09/12/19/ER Draft POSDate of Exam:09/12/19 CHEST 1 VIEW, AP/PA ONLY EXAMINATION: Chest radiograph, portable AP view. DATE: 09/12/2019 8:20 PM. INDICATION: 84-year-old male, fever, headache. COMPARISON: July 08, 2019. FINDINGS: There is stable prominence of the mediastinum. The aorta may be aneurysmal. There is no identified pneumothorax. There is blunting of the left lateral costophrenic angle. Lung volumes are low. IMPRESSION: 1. Stable abnormal prominence of the mediastinum. This potentially could reflect aneurysm. 2. Blunting of the left lateral costophrenic angle which may relate to overlap of soft tissues, atelectasis, infiltrate and/or small effusion. Dictated on workstation # [id number] Dict: 09/12/192031 Trans: 09/12/192040 [facility] [id number] Interpreted by: VAN FOX MD Electronically signed by: NAME: ANA WALKER [facility] REC#: [id number] PT STATUS: REG ER : 1935 PHYSICIAN: KHLOE ROA APRN ADMIT DATE: 09/12/19/ER Draft POSDate of Exam:09/12/19 CHEST 1 VIEW, AP/PA ONLY EXAMINATION: Chest radiograph, portable AP view. DATE: 09/12/2019 8:20 PM. INDICATION: 84-year-old male, fever, headache. COMPARISON: July 08, 2019. FINDINGS: There is stable prominence of the mediastinum. The aorta may be aneurysmal. There is no identified pneumothorax. There is blunting of the left lateral costophrenic angle. Lung volumes are low. IMPRESSION: 1. Stable abnormal prominence of the mediastinum. This potentially could reflect aneurysm. 2. Blunting of the left lateral costophrenic angle which may relate to overlap of soft tissues, atelectasis, infiltrate and/or small effusion. Dictated on workstation # [id number] Dict: 09/12/192031 Trans: 09/12/192040 [facility] [id number] Interpreted by: VAN FOX MD Electronically signed by: Departure Communication (Admissions) I spoke with the triage nurse at the [facility]. She relayed the information to Dr. Weber, patient will be accepted to . [facility] has been launched. Family states they have [employer] insurance and would prefer to f ly. This is actually the patient's own neurosurgeon, he has met him before. Impression Primary Impression: Intracranial hemorrhage Disposition: XFER SHT-TRM HOSP Condition: Stable Departure-Patient Inst. Referrals: DAPHNE BHATT MD (PCP/Family) Primary Care Physician KHLOE ROA APRN Sep 12, 2019 19:49 POS
[2019-09-12 19:59] LABS: BASOPHILS % (AUTO) 0 % (0-10); EOSINOPHILS % (AUTO) 0 % (0-10); HEMATOCRIT 34 % (40-54); HEMOGLOBIN 11.3 G/DL (13.3-17.7); LYMPHOCYTES # (AUTO) 1.7 X 10^3 (1.0-4.0); LYMPHOCYTES % (AUTO) 19 % (12-44); MEAN CORPUSCULAR HEMOGLOBIN 28 PG (25-34); MEAN CORPUSCULAR HGB CONC 33 G/DL (32-36); MEAN CORPUSCULAR VOLUME 86 FL (80-99); MEAN PLATELET VOLUME 9.2 FL (7.4-10.4); MONOCYTES # (AUTO) 0.8 X 10^3 (0.0-1.0); MONOCYTES % (AUTO) 9 % (0-12); NEUTROPHILS # (AUTO) 6.5 X 10^3 (1.8-7.8); NEUTROPHILS % (AUTO) 71 % (42-75); PLATELET COUNT 294 10^3/uL (130-400); RED CELL DISTRIBUTION WIDTH 16.2 % (10.0-14.5); WHITE BLOOD COUNT 9.1 10^3/uL (4.3-11.0)
[2019-09-12] MEDS ORDERED: NS IV 1000 ML 1,000 ML IV SCH (20:00)
[2019-09-12] MEDS ORDERED: rOPINIRole 0.25 MG (REQUIP) TAB PO ONE (20:00)
[2019-09-12 20:22] LABS: BILIRUBIN,TOTAL 1.6 MG/DL (0.1-1.0); CALCIUM 9.2 MG/DL (8.5-10.1); CREATININE SERUM 1.65 MG/DL (0.60-1.30); POTASSIUM 4.1 MMOL/L (3.6-5.0); TOTAL PROTEIN 7.3 GM/DL (6.4-8.2)
--- NOTE | 2019-09-12 20:41 | Diagnostic Imaging Report ---
EXAMINATION: Chest radiograph, portable AP view. DATE: 09/12/2019 8:20 PM. INDICATION: 84-year-old male, fever, headache. COMPARISON: July 08, 2019. FINDINGS: There is stable prominence of the mediastinum. The aorta may be aneurysmal. There is no identified pneumothorax. There is blunting of the left lateral costophrenic angle. Lung volumes are low. IMPRESSION: 1. Stable abnormal prominence of the mediastinum. This potentially could reflect aneurysm. 2. Blunting of the left lateral costophrenic angle which may relate to overlap of soft tissues, atelectasis, infiltrate and/or small effusion. Dictated by: Dictated on workstation # [id number]
[2019-09-12 20:42] LABS: INR 2.7 (0.8-1.4); PROTHROMBIN TIME PATIENT 30.1 SEC (12.2-14.7)
[2019-09-12] MEDS ORDERED: HUMAN PROTHROMBIN COMPLX(PCC) 500 UNIT (KCENTRA) IV ONE (20:45)
--- NOTE | 2019-09-12 21:05 | Diagnostic Imaging Report ---
PROCEDURE: CT head without contrast. TECHNIQUE: Multiple contiguous axial images were obtained through the brain without the use of intravenous contrast. Auto Exposure Controls were utilized during the CT exam to meet ALARA standards for radiation dose reduction. DATE: September 12, 2019. COMPARISON: August 07, 2019. INDICATION: 84-year-old male, fever, headache and confusion. FINDINGS: There is a large acute parenchymal hemorrhage involving the left parieto-occipital region with adjacent edema and mild mass effect. There is a small amount of left subdural blood with thickness along the falx measuring up to 5.5 mm. There is generalized cerebral volume loss. There is a high attenuation masslike prominence adjacent to the anterior aspect of the brainstem on axial image 10 measuring up to approximately 3.9 x 2.7 cm in size which appears to be contiguous with vasculature which may relate to large aneurysm. This is not particularly well evaluated on noncontrast study. There is an intracranial catheter with the approximation of the left lateral ventricle. There is no hydrocephalus. There is mass effect on the brainstem by the above-mentioned masslike prominence which could relate to aneurysm. This is an unchanged appearance since prior CT head study. The visualized portions of the paranasal sinuses, mastoid air cells and middle ears are well aerated. There may be procedure related changes of the right mastoid air cells. IMPRESSION: 1. New acute intraparenchymal hemorrhage in the left parieto-occipital region with adjacent edema and mild mass effect. There is also an acute left-sided subdural hematoma measuring up to 5.5 mm in thickness. 2. Redemonstrated abnormal masslike opacification anterior to the brainstem which may relate to large aneurysm. Findings called to the Emergency Room physician taking care of the patient at 2045 hours on September 12, 2019. Dictated by: Dictated on workstation # [id number]
[2019-09-12] MEDS ORDERED: ONDANSETRON 4 MG/2 ML (SDV) Z0FRAN ONE (21:33)
[2019-09-12 21:48] VITALS: BP 104/71
[2019-09-12] MEDS ORDERED: ONDANSETRON 4 MG/2 ML (SDV) Z0FRAN IVP ONE (22:15)
== END 2019-09-12 21:49 | disposition short-term general hospital (02) ==
LOC: EDUNIT# 18:59 → ER 19:00
DX: I62.9 Nontraumatic intracranial hemorrhage, unspecified (principal); I10 Essential (primary) hypertension; I48.91 Unspecified atrial fibrillation; I25.10 Atherosclerotic heart disease of native coronary artery without angina pectoris; E78.00 Pure hypercholesterolemia, unspecified; F32.9 Major depressive disorder, single episode, unspecified; M10.9 Gout, unspecified; G47.30 Sleep apnea, unspecified; Z99.89 Dependence on other enabling machines and devices; Z88.0 Allergy status to penicillin; Z88.1 Allergy status to other antibiotic agents; Z91.041 Radiographic dye allergy status; Z79.82 Long term (current) use of aspirin; Z79.51 Long term (current) use of inhaled steroids; Z87.442 Personal history of urinary calculi; Z79.01 Long term (current) use of anticoagulants; Z87.891 Personal history of nicotine dependence; Z95.5 Presence of coronary angioplasty implant and graft; Z82.49 Family history of ischemic heart disease and other diseases of the circulatory system
CPT/HCPCS: 36415; 70450; 71045; 80053; 83605; 85025; 85610; 87040; 87804

== ENCOUNTER 2019-09-18 09:14 | Inpatient (IN) | payer MEDICARE ==
[~2019-09-18] VITALS: Ht 182.8 cm; Wt 91.8 kg
[2019-09-18] VITALS (9 sets, daily range): BP systolic 76–132; BP diastolic 58–84
[2019-09-18] MEDS ORDERED: ONDANSETRON 4 MG (ZOFRAN) ORAL DISSOLVE TAB PO PRN (10:30)
[2019-09-18] MEDS ORDERED: guaiFENesin/CODEINE (ROBITUSSIN AC) 10ML UDC PO PRN (10:30)
[2019-09-18] MEDS ORDERED: LOPERAMIDE 2 MG (IMODIUM) TABLET PO PRN (10:30)
[2019-09-18] MEDS ORDERED: ACETAMINOPHEN 500 MG TAB (TYLENOL) PO PRN ×2 (10:30→20:15)
[2019-09-18] MEDS ORDERED: FLEET ENEMA ADULT 1 EA BTL PR PRN (10:30)
[2019-09-18] MEDS ORDERED: BISACODYL 10 MG SUPP (DULCOLAX) PR PRN (10:30)
[2019-09-18] MEDS ORDERED: diphenhydrAMINE 25 MG TAB (BENADRYL) PO PRN (10:30)
[2019-09-18] MEDS ORDERED: MELATONIN 3 MG TABLET PO PRN (10:30)
[2019-09-18] MEDS ORDERED: CALCIUM CARBONATE 500 MG (TUMS) TAB.CHEW PO PRN (10:30)
[2019-09-18] MEDS ORDERED: ALPRAZolam 0.25 MG (XANAX) TAB PO PRN (10:30)
[2019-09-18] MEDS ORDERED: HYDROcodone/APAP 5 MG/325 MG (LORTAB) TAB PO PRN ×2 (10:30→20:15)
[2019-09-18] MEDS ORDERED: FINA5TAB6 PO (12:17)
[2019-09-18] MEDS ORDERED: CHOL20003 PO (12:17)
[2019-09-18] MEDS ORDERED: LEVE500T99 PO (12:17)
[2019-09-18] MEDS ORDERED: MULT-1029 PO (12:17)
[2019-09-18] MEDS ORDERED: HYDR-3812 PO (12:17)
[2019-09-18] MEDS ORDERED: CITA20TA12 PO (12:17)
[2019-09-18] MEDS ORDERED: ATOR40TA70 PO (12:17)
[2019-09-18] MEDS ORDERED: SENN-40 PO (12:17)
[2019-09-18] MEDS ORDERED: ACET-2267 PO (12:17)
[2019-09-18] MEDS ORDERED: VITA1TAB17 PO (12:17)
--- NOTE | 2019-09-18 12:22 | NUR ---
UPDATED MED REC WITH DISCHARGE ORDERS FROM . THE FOLLOWING CHANGES WERE MADE AT THAT DISCHARGE: START TAKING: ASPIRIN 325MG DAILY HYDROCODONE 5-325MG 1 Q4H PRN KEPPRA 500MG BID SENOKOT S BID STOP TAKING: WARFARIN 3MG I WILL UPDATE THE MED REC BACK TO THE LIST OF MEDICATIONS THE PATIENT WAS TAKING PRIOR TO THESE CHANGES AT DISCHARGE FROM AT A LATER DATE FOR PROPER DISCHARGE TO HOME ORDERS. Addendum: 09/19/19 at 1120 by TEJA GONZALEZ [facility] REMOVED THE 4 NEW MEDICATIONS THAT WERE ORDERED AT DISCHARGE FROM AT THIS TIME. I ADDED BACK THE WARFARIN THAT WAS DISCONTINUED. I CALLED [employer] [facility] FOR A LIST OF RECENTLY FILLED MEDICATIONS TO VERIFY THE CONTINUED MEDICATIONS WERE ACCURATE. [employer] FILLED: READY NOW - ALLOPURINOL 100MG DAILY READY NOW, REFILL - TAMSULOSIN 0.4MG DAILY READY NOW, REFILL - FINASTERIDE 5MG DAILY READY NOW, REFILL- WARFARIN 3MG DAILY 08-23-19 AMIODARONE 200MG TID (KU HAS BID, VERIFIED THIS WAS DECREASED TO BID) 08-08-19 REQUIP 0.25MG HS #90 (KU HAD BID, VERIFIED INCREASED TO BID 4PM AND 9PM) 07-26-19 CELEXA 40MG DAILY #90 (KU HAD 20MG, VERIFIED HE WAS TAKING 40MG) 07-06-19 SPIRONOLACTONE 25MG DAILY #90 07-06-19 LIPITOR 80MG DAILY #90 (KU HAD 40MG, VERIFIED HE WAS TAKING 80MG) 07-03-19 LOSARTAN 50MG 1/2 DAILY #45 (KU HAD 50MG DAILY, VERIFIED SHE WAS GIVING HIM A WHOLE 50MG TAB, SHE DID NOT REALIZE IT WAS WRITTEN TO CUT IN HALF) 06-27-19 PROTONIX 40MG DAILY #90 OTC MEDS ON LIST FROM JUNIOR, I LEFT ON MED REC REPORTED: FLONASE PRN ZYRTEC DAILY TYLENOL PRN VITAMIN D DAILY MTV 1/2 BID B COMPLEX DAILY
--- NOTE | 2019-09-18 13:25 | NUR ---
Ana "Melissa Godoy admitted to room 222-1, with an admitting diagnosis of Intraparenchymal Hematoma of brain, on 09/18/19 from via Private vehicle, accompanied by family.ANA GODOY introduced to surroundings, call light, bed controls, phone, TV, temperature control, lights, meal times, smoking policy, visitor policy, side rail policy, bathrooms and showers. Patient Rights given to patient in the handbook.ANA GODOY verbalizes understanding that [facility] is not responsible for the loss or damage to any personal effects or valuables that are kept in the patients possession during their hospitalization. The following Patient Care Plans were discussed with the patient: Discharge Planning, Falls, Impaired Mobility, Stroke. ANA GODOY verbalizes understanding of Interdisciplinary Patient Education. Patient and/or family were informed about the Rapid Response Team and its purpose. Patient received Patient Rights Booklet, which includes Privacy Act Statement and Data Collection Information Summary.
--- NOTE | 2019-09-18 14:25 | NUR ---
BECAME UNSTEADY AND DIZZY WHEN AMBULATING WITH PT AND COLOR ASHEN. WAS ASSISTED TO CHAIR. BP 76/58, HR 100. RA SAT 82%. STARTED ON 2L OF OXYGEN. PUT IN WHEELCHAIR AND TAKEN BACK TO ROOM. BP BACK UP. SEE VITAL SIGN INTERVENTION. DR. MENDENHALL NOTIFIED OF INCIDENT. COMPRESSION HOSE APPLIED ORDERED. DR. BHATT WAS NOTIFIED OF CONSULT.
--- NOTE | 2019-09-18 14:38 | Physical Therapy Evaluation ---
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 0-Lmghucvumg-gszuxbq completes the activity by him/herself with no assistance from a helper. 5-Set-up or Clean-up Assistance-helper sets up or cleans up; patient completes activity. [place] assists only prior to or following the activity. 4-Supervision or Touching Assistance-helper provides verbal cues and/or touching/steadying and/or contact guard assistance as patient completes activity. Assistance may be provided throughout the activity or intermittently. 3-Partial/Moderate Assistance-helper does LESS THAN HALF the effort. [place] lifts, holds or supports trunk or limbs, but provides less than half the effort. 2-Substantial/Maximal Assistance-helper does MORE THAN HALF the effort. [place] lifts or holds trunk or limbs and provides more than half the effort. 1-Itauzpzvh-xjuiej does ALL the effort. Patient does none of the effort to complete the activity. Or, the assistance of 2 or more helpers is required for the patient to complete the activity. If activity was not attempted, code reason: 7-Patient Refused. 9-Not Applicable-not attempted and the patient did not perform the activity before the current illness, exacerbation or injury. 10-Not Attempted due to Environmental Limitations-(lack of equipment, weather restraints, etc.). 88-Not Attempted due to Medical Conditions or Safety Concerns. Bed Mobility: 6 Transfers (B,C,W/C): 6 Gait: 6 Stairs: 6 Indoor Mobility (Ambulation): Independent Stairs: Independent Prior Devices Use: Walker PT Evaluation-Current Subjective Patient and family state he is tired and weak after 1 week of hospitalization in bed and long car ride to hospital. Patient states he has been fairly independent at home with some assistance from as necessary, uses FWW, and spends a lot of time in bed while at home. Patient states during session that he is dizzy with some transfers from sit to stand or ambulation, requiring seated rests. Pain Numeric Pain Scale: 0-No Pain Location: No Pain Reported Objective Patient Orientation: Person, Place, Time, Situation ROM/Strength ROM Lower Extremities WFL Strength Lower Extremities Grossly 4/5 bilaterally Integumentary/Posture Integumentary See nursing notes Bowel Incontinence: No Bladder Incontinence: No Posture WFL; forward rounded shoulders Neuromuscular (Tone, Coordination, Reflexes) Grossly intact Sensory Vision: Functional Hearing: Hearing Aid/Aides (and R cochlear implant) Transfers Roll Left to Right (QC): 4 Sit to Lying (QC): 4 Lying to Sitting/Side of Bed(Q: 4 Sit to Stand (QC): 3 Chair/Zob-ap-Dtbhs Xfer(QC): 3 Car Transfer (QC): 3 CGA-SBA and verbal cues for bed mobility; Bettye for standing and transfers d/t unsteadiness and impulsiveness Gait Does the Patient Walk?: Yes Mode of Locomotion: Walk Anticipated Mode of Locomotion: Walk Walk 10 feet (QC): 3 (modA) Walk 50 ft with 2 Turns(QC): 3 (modA) Walk 150 ft (QC): 88 Walking 10ft/uneven surface-QC: 3 Distance: 100' Gait Assistive Device: FWW Comments/Gait Description short, choppy, shuffling steps; unsteady and quick pace; impulsive during ambulation; some difficulty with walker maneuvering. Wheelchair Training Does the Pt Use a Wheelchair?: No Wheel 50 ft with 2 turns (QC): 9 Wheel 150 ft (QC): 9 Type of Wheelchair: Manual Stairs 1 Step (curb) (QC): 3 4 Steps (QC): 88 12 Steps (QC): 9 Balance Sitting Static: Normal Sitting Dynamic: Normal Standing Static: Fair Standing Dynamic: Fair Picking up an Object (QC): 6 (from sitting position) Treatment Seated EX: hip flexion, contralateral elbow to knee twist, LAQ, hip abd/add x15 Standing EX: weight shift, upper body rotation, prolonged standing balance x15 Assessment/Needs Initial vital measurements were taken at 65 bpm, 92% O2 RA, and BP 132/84 in supine. Patient required Bettye for car and chair transfers d/t unsteadiness and impulsivity on feet. Patient able to complete bed mobility with CGA-SBA and verbal cues to transfer from sit to supine and back to sit again. Patient completed seated exercises and strength testing without difficulty, demonstrating good LE strength bilaterally. Performed some standing exercises to assess and work on balance without difficulty but requiring seated rest breaks. Patient had some dizziness during standing exercises and transfers but stated that it passed after sitting. Patient required Bettye for ambulation over uneven surface and over 1 step, requiring verbal cues to walker placement and gait sequencing. Patient was able to ambulate 100' with FWW Bettye, demonstrating short, shuffling steps and an unsteady and quick pace. Patient is impulsive during ambulation activities and had some difficulty maneuvering walker. During ambulation, patient noted appearance to be lee and ashen, so patient was seated and vitals were taken. Seated vitals were taken at 126/80 and 89%. Standing vitals were attempted but unable to be accurately obtained and patient reported increased dizziness with standing. Further seated vitals were taken at 76/58 after sitting x 5 minutes, 83% O2, and 103 bpm. Patient was able to use tripod positioning to increase O2 levels to 96% temporarily. Patient was connected to 2L O2 and transferred to wheelchair to return to room. Patient laid supine in bed and final vitals taken at 95/64, 75 bpm, and 90% on 2L O2. Patient did not report any continuing dizziness upon return to bed, only exhaustion and fatigue. Rehab Potential: Fair PT Diabetes Territory Manager Goals Custodial Goals PT Diabetes Territory Manager Goals Time Frame: Oct 12, 2019 Roll Left & Right (QC): 6 Sit to Lying (QC): 6 Lying-Sitting on Side/Bed(QC): 6 Sit to Stand (QC): 6 Chair/Kuy-ww-Vqrvb Xfer(QC): 6 Toilet Transfer (QC): 6 Car Transfer (QC): 6 Does the Patient Walk: Yes Walk 10 feet (QC): 6 Walk 50ft with 2 Turns (QC): 6 Walk 150 ft (QC): 6 Walking 10ft on Uneven Surface: 6 1 Step (curb) (QC): 6 4 Steps (QC): 9 12 Steps (QC): 9 Picking up an Object (QC): 6 Does the Pt use WC or Scooter?: No Type: N/A Type: N/A PT Plan Problem List Problem List: Activity Tolerance, Functional Strength, Safety, Balance, Gait, Transfer, Bed Mobility Treatment/Plan Treatment Plan: Continue Plan of Care Treatment Plan: Bed Mobility, Education, Functional Activity Ronit, Functional Strength, Gait, Safety, Therapeutic Exercise, Transfers Treatment Duration: Oct 12, 2019 Frequency: At least 5 of 7 days/Wk (IRF) Estimated Hrs Per Day: 1.5 hours per day Patient and/or Family Agrees t: Yes Time/GCodes Time In: 1315 Time Out: 1430 Total Billed Treatment Time: 75 Total Billed Treatment 1 visit EVModC 15min (5770-4571) (OT EV 15min) Co Treat with OT: EX x2 30min ([id number]) FA 15min (3350-0840) ANITA LEE PT Sep 18, 2019 14:38 POS
--- NOTE | 2019-09-18 14:39 | Occupational Therapy Eval ---
OT Evaluation-General/PLF Medical Diagnosis Admission Date Sep 18, 2019 at 13:25 Medical Diagnosis: Intraparenchymal hematoma Onset Date: Sep 13, 2019 Therapy Diagnosis Therapy Diagnosis: Decreased ADL function and functional mobility Height/Weight Height (Feet): 6 Height (Inches): 0.00 Weight (Pounds): 206 Weight (Ounces): 5.8 Precautions Precautions/Isolations: Standard Precautions Weight Bear Status Weight Bearing Restriction: Weight Bearing/Tolerated Referral Physician: Deneen Fernandez DO Referral Reason: Activity Tolerance, Self Care, Evaluation/Treatment, Strengthening/ROM Medical History Pertinent Medical History: Atrial Fib, Arthritis, CABG, CAD, HTN, PVD Additional Medical History angioplasty, brain shunt, coronary stent, ear surgery (cochlear implant in place), vascular surgery , chronic edema, HTN, high cholesterol, PVD, vertigo, dolichoectatic basilar aneurysm, CAD, hearing loss, SYL on CPAP, heart cath with [address], arthritis, depression Current History Intracranial aneurysm (03/29/19), Normal pressure hydrocephaly (03/27/18 with BUSINESS MANAGEMENT SPECIALIST shunt placement); intraparenchymal hematoma (09/13/19) Reviewed History: Yes Social History Home: Single Level Current Living Status: Spouse Entry Into Home: Level Entry Steps Into Home: 0 Steps Inside Home: 0 ADL-Prior Level of Function SCALE: Activities may be completed with or without assistive devices. 4-Iuczqiifzc-yeiwaid completes the activity by him/herself with no assistance from a helper. 5-Set-up or Clean-up Assistance-helper sets up or cleans up; patient completes activity. [place] assists only prior to or following the activity. 4-Supervision or Touching Assistance-helper provides verbal cues and/or touching/steadying and/or contact guard assistance as patient completes activity. Assistance may be provided throughout the activity or intermittently. 3-Partial/Moderate Assistance-helper does LESS THAN HALF the effort. [place] lifts, holds or supports trunk or limbs, but provides less than half the effort. 2-Substantial/Maximal Assistance-helper does MORE THAN HALF the effort. [place] lifts or holds trunk or limbs and provides more than half the effort. 6-Rvafyjyzg-hghfez does ALL the effort. Patient does none of the effort to complete the activity. Or, the assistance of 2 or more helpers is required for the patient to complete the activity. If activity was not attempted, code reason: 7-Patient Refused. 9-Not Applicable-not attempted and the patient did not perform the activity before the current illness, exacerbation or injury. 10-Not Attempted due to Environmental Limitations-(lack of equipment, weather restraints, etc.). 88-Not Attempted due to Medical Conditions or Safety Concerns. ADL PLOF Comments Pt states he required assist with bathing tasks: assist with back, bottom, and feet typically. Pt states IND within other areas of ADL function with use of FWW. Self Care: Needed Some Help Functional Cognition: Independent DME/Equipment: Bath Chair, Grab Bars, Shower DME/Equipment Comments FWW, shower chair, walk in shower, grab bars. 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 Self: No Leisure Interests: "sleeping" OT Current Status Subjective Pt transported by private vehicle to [facility]. PT/ OT meet pt and family members outside to bring into building. Pt alert and oriented, states no pain. Pt agreeable to OT eval and co-treatment of OT/ PT. OT evaluation: [id number] OT/ PT co-treatment: [id number]. Co-treat due to pt's medical diagnosis, decreased energy and safety awareness rendering the need for two skilled therapists. OT focused on UE strength, ADL function, sequencing and problem solving; PT focused on LB strength, balance, and mobility. Mental Status/Objective Patient Orientation: Person, Place, Situation, Normal For Age Current Glasses/Contacts: No Hearing Aids: Yes (cochlear R, hearing aide L) Dentures/Partials: No Hand Dominance: Right Upper Extremity ROM WFL BUE Upper Extremity Coordination WFL BUE Upper Extremity Sensation WFL BUE, no c/o paresthesias Upper Extremity Strength WFL BUE (4+/5) ADL-Treatment Eating (QC): 7 Oral Hygiene (QC): 6 Shower/Bathe Self (QC): 7 Upper Body Dressing (QC): 7 Lower Body Dressing (QC): 4 (Based on clinical judgement and pt's ability to d on/ doff sock pt would require s/u and SBA during pant donning.) On/Off Footwear (QC): 6 Toileting Hygiene (QC): 7 Toilet Transfer (QC): 7 Other Treatments Pt completes car transfer with min A to w/c. Pt pushed to ARU, and daughter present. Pt introduced to ARU expectations and OT role. Pt states no pain, but fatigue. Pt's vitals assessed: 02: 92%, bp: 132/84, 65 BPM. OT individual evaluation: [id number]. OT/ PT co-treatment: [id number]. When questioned pt states he has had multiple falls at home, mostly from sit to stands from recliner chair. Pt states he does not get dizzy, but rather pt's legs "don't work" as he stands and suddenly falls; pt later states he gets dizzy and falls. States goals of therapy are to work on walking and balance tasks. Pt agreeable to sponge bath, sponge bath prepped, pt states he would rather not as pt just bathed this morning. Pt agreeable to oral hygiene and exercises sitting EOB. Pt completes core exercises seated and in standing. Pt stands ~2 minutes, requires break. Pt completes standing exercises, sitting after ~1.5 min. Pt returns to sit, completes UB/ LB theraband exercises with cues for speed, tension, and UE placement. Pt sit to stand with CGA to FWW, requires cues for pushing off surface, walks through ARU commons with CGA. Pt's skin color ashy, sits in ARU common area with c/o fatigue. Pt's vitals assessed in seated position after ~3 min sitting: BP 126/80, 89% 02. Pt stands after an additional ~2 minutes, 02 at 91%, 100BPM, BP not able to be assessed. Seated vitals attempted: 76/58 with 83% 02, 103 BPM. Nasal cannula and 2L 02 connected, pt's 02 sats at 91%. Pt transferred to w/c with CGA, pushed to room to lay in bed, sit to stand CGA and returns to bed with SBA. Pt adjusted for comfort; vitals assessed with HOB elevated ~30*: 95/64, 90% 02 with 2L 02 connected and 75 BPM. Pt educated on variation of vital signs and safety precautions for pt's health; pt left in bed with nursing present. Call light within reach, all needs met. Education OT Patient Education: Correct positioning, Exercise program, Modified ADL techniques, Purpose of tx/functional activities, Rehab process, Safety issues, Transfer techniques Teaching Recipient: Patient Teaching Methods: Demonstration, Discussion Response to Teaching: Verbalize Understanding, Return Demonstration, Reinforcement Needed OT Short Term Goals Short Term Goals Eatin Oral hygiene: 6 Upper body dressin Lower body dressin OT Fly Fishing Guide Goals Long-Term Goals Time Frame: Oct 02, 2019 Eating (QC): 6 Oral Hygiene (QC): 6 Toileting Hygiene (QC): 6 Shower/Bathe Self (QC): 4 Upper Body Dressing (QC): 6 Lower Body Dressing (QC): 6 On/Off Footwear (QC): 6 Additional Goals: 1-Demonstrate ADL Tasks, 2-Verbalize Understanding, 3- ImproveStrength/Ronit 1=Demonstrate adherence to instructed precautions during ADL tasks. 2=Patient will verbalize/demonstrate understanding of assistive devices/modifications for ADL. 3=Patient will improve strength/tolerance for activity to enable patient to perform ADL's. OT Education/Plan Problem List/Assessment Assessment: Decreased Activ Tolerance, Decreased Safety Aware, Dependent Transfers, Impaired Funct Balance, Impaired I ADL's, Impaired Self-Care Skills Discharge Recommendations Plan/Recommendations: Continue POC Patient/Family Goals Work on walking/ balance tasks. Treatment Plan/Plan of Care Treatment,Training & Education: Yes Patient would benefit from OT for education, treatment and training to promote independence in ADL's, mobility, safety and/or upper extremity function for AD L's. Plan of Care: ADL Retraining, Caregiver Training, Functional Mobility, Group Exercise/Act as Ind, UE Funct Exercise/Act Treatment Duration: Oct 02, 2019 Frequency: At least 5 of 7 days/Wk (IRF) Estimated Hrs Per Day: 1.5 hours per day Agreement: Yes Rehab Potential: Fair Time/GCodes Start Time: 13:30 Stop Time: 15:30 Total Time Billed (hr/min): 60 Billed Treatment Time 1, EVM (15), ADL (15), EX 2 (30)= 60 ELO BAEZ OTR Sep 18, 2019 14:39 POS
--- NOTE | 2019-09-18 15:00 | NUR ---
BLADDER SCAN SHOWS 120 CC. PATIENT UNABLE TO VOID. AWAITING ORDER FROM DR. BHATT IF WE SHOULD STRAIGHT CATH DONE AT [facility] OR PUT IN SEVILLA CATHETER.
--- NOTE | 2019-09-18 15:30 | ST Cognitive Linguistic Eval ---
Speech Evaluation-General Medical Diagnosis Intraparenchymal hematoma Onset Date: Sep 13, 2019 Therapy Diagnosis Therapy Diagnosis: Cognitive-communication Referral Referring Physician: Dr. Fernandez Medical History Pertinent Medical History: Atrial Fib, Arthritis, CABG, CAD, HTN, PVD Reviewed History: Yes Social History Current Living Status: Spouse Speech PLF-Current Status Prior Level of Function Patient lives at home with his . Patient is dependent on his for much of his daily needs. Subjective Patient was pleasant and cooperative with the cognitive assessment. Language Eval: Auditory Comprehends Simple Yes/No Ques: Functional Indent/Objects Multiple [place]: Functional Ident/Pics in Multiple [place]: Functional Follows 1-Step Commands: Functional Follows Complex Directions: Mild Follows General Conversations: Functional Language Eval: Verbal Language Completes Spontaneous Greeting: Functional Produces Auto, Serial Info: Functional Imitates Simple Words/Phrases: Mild Word Finding: Functional Requests Basic Needs: Functional States Basic Personal Info: Functional Expresses Complex Ideas: Moderate Objective Cognitive Domain Attention: WNL Memory: Moderate Problem Solving: Mild Executive Functions: Mild Visuospatial Skills: Mild Composite Severity Rating: Mild Clock Drawing Severity Rating: Mild Objective Formal/Standardized Tests [facility] Status ([facility]) Results 24/30, Mild Neurocognitive Disorder level of function Oral Motor/Speech Production Within Normal Limits Impression Patient is a pleasant 84 year old male admitted to the ARU for the second time in the past months. Patient was given the SLUMS at bedside with a score of 24/30 obtained. This score falls in the MNCD range of function. The patient will receive skilled ST services with focus on safety awareness and independence in order to return home safely. Speech Patient Assess Expression of Ideas/Wants: Exhibits (3) Understanding Verbal Content: Usually Understands (3) Brief Interview-Mental Status: Yes Repetition of Three Words: Three (3) Temporal Orientation: Year: Correct (3) Temporal Orientation: Month: Accurate within 5 days(2) Temporal Orientation: Day: Correct (1) Recall : Wear to say "Sock": Yes,after cueing (1) Recall : Color: No, could not recall (0) Recall : Bed: Yes,after cueing (1) Memory/Recall Ability: Current season, Staff names and faces, That he or she is in a hsp/hsp unit Speech Short Term Goals Short Term Goals Short Term Goals 1) The patient will complete memory tasks related to his daily needs at 90% or greater with minimal cues. 2) The patient will complete problem solving tasks related to his daily needs at 90% or greater with minimal cues. 3) The patient will complete safety awareness tasks related to his daily needs at 90% or greater with minimal cues. Speech Prison Goals Prison Goals Patient will improve cognitive-communication abilities in order to complete daily tasks with minimal assist. Speech-Plan Patient/Family Goals Patient/Family Goals: The patient plans on returning home with his upon rehab discharge. Treatment Plan Speech Therapy Treatment Plan: Continue Plan of Care Patient will receive skilled ST services for improving cognitive function. Treatment Duration: Sep 28, 2019 Frequency: 5 times per week Estimated Hrs Per Day: .5 hour per day Rehab Potential: Fair Barriers to Learning: Patient has cognitive deficits, significant health issues Pt/Family Agrees to Plan: Yes Safety Risks/Education Teaching Recipient: Patient Teaching Methods: Discussion Response to Teaching: Verbalize Understanding Education Topics Provided: Safety within his room and communication of his wants/needs Time Speech Therapy Time In: 15:10 Speech Therapy Time Out: 15:25 Total Billed Time: 15 Billed Treatment Time 1, SYLVIA Waggoner Sep 18, 2019 15:30 POS
--- NOTE | 2019-09-18 16:30 | NUR ---
DR. ALCANTAR NOTIFIED OF CONSULT.
[2019-09-18] MEDS ORDERED: NS IV 1000 ML 500 ML IV ONE (16:45)
--- NOTE | 2019-09-18 16:45 | NUR ---
NS BOLUS STARTED.
--- NOTE | 2019-09-18 17:40 | Consultation-Cardiology ---
HPI-Cardiology Cardiology Consultation Date of Consultation 09/18/19 Date of Admission Time Seen by Provider: 17:34 Indication: Hypotension HPI 84 years old gentleman with extensive history as described below, sustained a stroke resulted in a fall with intracranial bleed, was treated at and referred back for physical therapy. During case therapy he became hypotensive and lethargic. Currently he is feeling better, sitting in bed eating dinner. Denied any chest pain. No palpitation. No syncope. Blood pressure is better Home Medications & Allergies Allergies: Coded Allergies: amoxicillin (Verified Allergy, Severe, RASH, pt has received Ancef & Cefepime in the past, 05/25/19) clavulanic acid (Verified Allergy, Severe, RASH, 12/26/18) Iodinated Contrast Media (Verified Allergy, Unknown, 12/26/18) Home Medication List Reviewed: Yes HPM-[id number] Hx Patient Social History Marital Status: Employed/Student: retired Type Used: Cigarettes 2nd Hand Smoke Exposure: No Recent Foreign Travel: No Recent Infectious Disease Expo: No Recent Hopitalizations: No (12/2018-DIVERTICULITIS/GI BLEED - 03/2019 NPH WITH EMS DRIVER SHUNT) Immunizations Up To Date Date of Pneumonia Vaccine: Jul 17, 2018 Date of Influenza Vaccine: Jul 08, 2018 Past Medical History Discussed below Family Medical History Significant Family History: Heart Disease, Hypertension Family Medical Hx Non contributory Review of Systems-General Review of Systems Constitutional: see HPI, malaise, weakness EENTM: no symptoms reported, hearing loss Respiratory: see HPI; No cough, No dyspnea on exertion, No hemoptysis, No orthopnea, No phlegm, No short of breath, No stridor, No wheezing, No other Cardiovascular: see HPI; No chest pain; edema; No Hx of Intervention, No palpitations, No syncope, No vascular heart diseas, No other Gastrointestinal: no symptoms reported, see HPI Genitourinary: no symptoms reported, see HPI Musculoskeletal: no symptoms reported, see HPI Skin: no symptoms reported, see HPI Psychiatric/Neurological: See HPI, Weakness Physical Exam Physical Exam Vital Signs Vital Signs - First Documented 09/18/19 16:01 Temp 36.8 Pulse 65 Resp 16 B/P (MAP) 132/84 Pulse Ox 92 O2 Delivery Nasal Cannula O2 Flow Rate 3.00 Capillary Refill : Height, Weight, BMI Height: 6'0.00" Weight: 206lbs. 5.8oz. 93.469343xy; 26.99 BMI Method:Stated General Appearance: No Apparent Distress, WD/WN Eyes: Bilateral Eye Normal Inspection, Bilateral Eye PERRL, Bilateral Eye EOMI HEENT: PERRL/EOMI, TMs Normal, Normal ENT Inspection, Pharynx Normal, Moist Mucous Membranes Neck: Full Range of Motion, Normal Inspection, Non Tender, Supple, Carotid Bruit Respiratory: Chest Non Tender, Normal Breath Sounds, No Accessory Muscle Use, No Respiratory Distress Cardiovascular: Regular Rate, Rhythm, No Gallop, No JVD, Normal Peripheral Pulses, Systolic Murmur, Gallop/S3 Gastrointestinal: Normal Bowel Sounds, No Organomegaly, No Pulsatile Mass, Non Tender, Soft Back: Normal Inspection, No CVA Tenderness, No Vertebral Tenderness Extremity: Normal Capillary Refill, Normal Inspection, Normal Range of Motion, Non Tender, No Calf Tenderness, No Pedal Edema Neurologic/Psychiatric: Alert, Oriented x3, Motor Weakness Skin: Normal Color, Warm/Dry Lymphatic: No Adenopathy A/P-Cardiology Admission Diagnosis Acute CVA Intracranial bleed Paroxysmal atrial fibrillation Hypertension Assessment/Plan Status post intracranial bleed secondary to a fall, sustained a fall after having a stroke, currently recovering and receiving physical therapy and occupational therapy. Managed by primary care team Hypotensive episode, had multiple episode of hypotension while in , family reporting questionable history of hypotension in the past. Continue to monitor blood pressure closely. I will evaluate 2-D echo, evaluate CBC and CMP. Monitor telemetry Paroxysmal atrial fibrillation, currently off oral anticoagulation due to intracranial bleed secondary to the head trauma. Maintained on amiodarone. I will monitor on telemetry Coronary artery disease multiple interventions in the past done by Dr. Pandey reporting history of 10 stents in the past, 5 balloon angioplasties. Last intervention was done about 5 years ago. No active chest pain History of abdominal aortic aneurysm, monitored by primary parts cleaner in [place], I'll try to obtain copy of the records History of intracranial aneurysm, reported by the family to be a large aneurysm, I will try to obtain copy of the records History of thoracic aortic dissection, treated conservatively in [place] in the past, continue to monitor History of intracranial shunt done about a year ago in , following with the neurologist in [place] Labile hypertension with episode of hypotension, monitor blood pressure Hyperlipidemia, monitor lipids Generalized weakness and debility. GABBY ALCANTAR MD Sep 18, 2019 17:40 POS
--- NOTE | 2019-09-18 18:30 | NUR ---
BLADDER SCAN SHOWS [address] BHATT NOTIFIED AND SEVILLA ORDERED. #16 FR. SEVILLA CATHETER INSERTED WITHOUT DIFFICULTY. IODINE WAS NOT USED TO CLEAN PATIENT SINCE HE HAS ALLERGY TO IT. FORESKIN WAS PULLED BACK DOWN AFTER SEVILLA INSERTION.
[2019-09-18] MEDS: LEVETIRACETAM 500 MG (KEPPRA) TAB PO SCH (20:59)
[2019-09-18] MEDS: AMIODARONE 200 MG (CORDARONE) TAB PO SCH (20:59)
[2019-09-18] MEDS: POLYETHYLENE GLYCOL 17 GM (MIRALAX) PACK PO SCH (20:59)
[2019-09-18] MEDS: SENNA W/DOCUSATE (SENOKOT S) TABLET PO SCH (20:59)
[2019-09-18] MEDS: rOPINIRole 0.25 MG (REQUIP) TAB PO SCH (20:59)
[2019-09-18] MEDS ORDERED: DOCUSATE SODIUM 100 MG (COLACE) CAP PO SCH (21:00)
[2019-09-18] MEDS ORDERED: SENNA W/DOCUSATE (SENOKOT S) TABLET PO SCH (21:00)
[2019-09-18] MEDS ORDERED: FLUTICASONE NASAL SPRAY (FLONASE) 16 GM BTL NS PRN (21:00)
--- NOTE | 2019-09-18 21:35 | PM&R Post Admission Assessment ---
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 Butcher and windows server specialist in [place] and urology care in [place] who is known to us in the inpatient rehabilitation unit due to recent admit earlier this year discharge date 04/17/19 following a brain injury and aneurysm repair at . He was discharged from after an extensive hospital stay following a stroke and fall and subsequent intraparenchymal hematoma. Patient had significant orthostasis and hypoxia yesterday prompting primary care provider Dr. Butcher consultation and cardiology consultation and Dr. Lawson which improved on IV fluids. Patient appears to be very declined since last seen by this examiner in inpatient rehabilitation last time. Patient will require intensive therapy although at a slower pace due to the orthostasis and overall severe generalized weakness in ordered to have any type of chance to returning home with his the patient appears to have a long recovery ahead of him and hopefully the subtle confusion from the recent brain injury will clear. Past Ytfxghy-Ecyzvc-Ukqyue Hx Past Med/Social Hx: Reviewed Nursing Past Med/Soc Hx, Reviewed and Corrections made Patient Social History Marrital Status: Employed/Student: retired Alcohol Use: Denies Use Recreational Drug Use: No Smoking Status: Never a Smoker Type Used: Cigarettes 2nd Hand Smoke Exposure: No Physical Abuse Screen: No Sexual Abuse: No Recent Foreign Travel: No Contact w/other who traveled: No Recent Hopitalizations: No (12/2018-DIVERTICULITIS/GI BLEED - 03/2019 NPH WITH GRAIN TRIMMER SHUNT) Recent Infectious Disease Expo: No Immunizations Up To Date Pediatric: Yes Date of Pneumonia Vaccine: Jul 17, 2018 Date of Influenza Vaccine: Aug 17, 2019 Seasonal Allergies Seasonal Allergies: Yes Past Medical History Surgeries: Angioplasty, Brain Shunt, Cardiac, Coronary Stent, Ear Surgery, Gallbladder, Neurological, Nose, Vascular Surgery GRAIN TRIMMER shunt 03/29/19, Respiratory: COPD, Sleep Apnea Currently Using CPAP: Yes Currently Using BIPAP: No Cardiac: Aneurysm, Atrial Fibrillation, Cardiomyopathy, Chronic Edema/Swelling, Coronary Artery Disease, High Cholesterol, Hypertension, Peripheral Vascular Neurological: Vertigo NPH, basilar aneurysm Reproductive: No Sexually Transmitted Disease: No HIV/AIDS: No Genitourinary: Benign Prostatic Hyperpl, Kidney Stones, Renal Failure Gastrointestinal: Abdominal Hernia, Gastrointestinal Bleed, Diverticulosis Musculoskeletal: Arthritis, Gout Loss of Vision: Bilateral Hearing Impairment: Hard of Hearing, Hearing Aide Left Psychosocial: Depression History of Blood Disorders: No Adverse Reaction to Blood Severino: No (N/A) Family History Abdominal aortic aneurysm Arthritis 19 MOTHER Cardiovascular disease 19 FATHER 19 MOTHER G8 SISTER Deafness or hearing loss 19 FATHER 19 MOTHER Hypertension 19 FATHER Myocardial infarction 19 FATHER Osteoporosis 19 MOTHER Heart Disease, Hypertension Prior Level of Function Bed Mobility: 6 Transfers: 6 Gait: 6 Stairs: 6 Indoor Mobility (Ambulation): Independent Stairs: Independent Prior Devices Use: Walker Self Care: Needed Some Help Functional Cognition: Independent 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 Drive Self: No Leisure Interests: "sleeping" Current Level of Fuctioning Roll Left to Right: 4 Sit to Lyin Lying to Sitting/Side of Bed: 4 Sit to Stand: 3 Chair/[id number]-lx-[id number] Xfer: 3 Car Transfer: 3 Does the Patient Walk: Yes Mode of Locomotion: Walk Anticipated Mode of Locomotion: Walk Walk 10 feet: 3 (modA) Walk 50 ft with 2 Turns: 3 (modA) Walk 150 ft: 88 Walking 10ft on uneven surface: 3 Gait Assistive Device: FWW Does the Pt Use a Wheelchair: No Wheel 50 ft with 2 turns: 9 Wheel 150 ft: 9 Type of Wheelchair: Manual 1 Step (curb): 3 4 Steps: 88 12 Steps: 9 Picking up an Object: 6 (from sitting position) Eatin Oral Hygiene: 6 Shower/Bathe Self: 7 Upper Body Dressin Lower Body Dressin (Based on clinical judgement and pt's ability to don/ doff sock pt would require s/u and SBA during pant donning.) On/Off Footwear: 6 Toileting Hygiene: 7 Toilet Transfer: 7 PM&R Allergy/Meds/Data Review Allergies Coded Allergies: amoxicillin (Verified Allergy, Severe, RASH, pt has received Ancef & Cefepime in the past, 05/25/19) clavulanic acid (Verified Allergy, Severe, RASH, 12/26/18) Iodinated Contrast Media (Verified Allergy, Unknown, 12/26/18) Home Medications Scheduled Allopurinol (Allopurinol), 100 MG PO DAILY, (Reported) Amiodarone HCl (Amiodarone HCl), 200 MG PO BID, (Reported) Atorvastatin Calcium (Atorvastatin Calcium), 40 MG PO DAILY, (Reported) Cetirizine HCl (Zyrtec), 10 MG PO DAILY, (Reported) Cholecalciferol (Vitamin D3) (Vitamin D3), 2,000 UNIT PO DAILY, (Reported) Citalopram Hydrobromide (Celexa), 20 MG PO DAILY, (Reported) Finasteride (Finasteride), 5 MG PO DAILY, (Reported) Losartan Potassium (Losartan Potassium), 50 MG PO DAILY, (Reported) Multivit-Min/FA/Lycopene/Lut (Centrum Silver Tablet), 0.5 TAB PO BID, (Reported) Pantoprazole Sodium (Pantoprazole Sodium), 40 MG PO DAILY, (Reported) Ropinirole HCl (Ropinirole HCl), 0.25 MG PO BID, (Reported) Spironolactone (Spironolactone), 25 MG PO DAILY, (Reported) Tamsulosin HCl (Flomax), 0.4 MG PO HS, (Reported) Vitamin B Complex (Vitamin B Complex), 1 TAB PO DAILY, (Reported) Warfarin Sodium (Warfarin Sodium), 3 MG PO HS, (Reported) Scheduled PRN Acetaminophen (Tylenol Extra Strength), 1,000 MG PO Q6H PRN for PAIN-MILD (1-4), (Reported) Fluticasone Propionate (Flonase Allergy Relief), 1 SPRAY NS HS PRN for ALLERGIES, (Reported) Discontinued Medications Atorvastatin Calcium (Atorvastatin Calcium), 80 MG PO DAILY, (Reported) Discontinued Reason: Prescription changed Carboxymethylcellulose Sodium (Refresh Tears), 1 DROP OU DAILY PRN for DRY EYES, (Reported) Discontinued Reason: No Longer Taking Cholecalciferol (Vitamin D3) (Vitamin D3), 10,000 UNIT PO DAILY, (Reported) Discontinued Reason: Prescription changed Citalopram Hydrobromide (Citalopram HBr), 40 MG PO HS, (Reported) Discontinued Reason: Prescription changed Docusate Sodium (Colace), 100 MG PO BID PRN for CONSTIPATION-1ST LINE, (Reported) Discontinued Reason: No Longer Taking Meclizine HCl (Meclizine HCl), 25 MG PO Q4H PRN for DIZZINESS Discontinued Reason: No Longer Taking Multivitamin with Minerals (Multivitamins with Minerals), 1 TAB PO DAILY, (Reported) Discontinued Reason: Prescription changed Nitroglycerin (Nitroglycerin), 0.4 MG SL UD PRN for CHEST PAIN, (Reported) Discontinued Reason: No Longer Taking Oxymetazoline HCl (Original Nasal [place]), 2-3 SPRAYS NS Q4H PRN for NOSE BLEED, (Reported) Discontinued Reason: No Longer Taking Scopolamine (Transderm-Scop), 1.5 MG TOP Q72H Discontinued Reason: No Longer Taking Current Medications Current Medications Reviewed Review of Systems Constitutional: see HPI, dizziness, malaise, weakness, weight loss EENTM: no symptoms reported Respiratory: no symptoms reported Cardiovascular: no symptoms reported Gastrointestinal: constipation Genitourinary: decreased output Musculoskeletal: back pain, joint pain Skin: no symptoms reported Psychiatric/Neurological: Anxiety, Weakness All Other Systems Reviewed Negative Unless Noted: Yes Physical Exam Physical Exam Vital Signs Vital Signs - First Documented 09/18/19 09/18/19 13:25 14:30 Temp 36.8 Pulse 65 Resp 18 B/P (MAP) 132/64 (86) Pulse Ox 92 O2 Delivery Room Air O2 Flow Rate 2.00 Capillary Refill : Height, Weight, BMI Height: 6'0.00" Weight: 206lbs. 5.8oz. 93.329446xz; 26.99 BMI Method:Stated General Appearance: WD/WN, Chronically ill, Mild Distress, Other (lethargic) Eyes: Bilateral Eye Normal Inspection, Bilateral Eye PERRL, Bilateral Eye EOMI HEENT: PERRL/EOMI, TMs Normal, Normal ENT Inspection, Pharynx Normal, Moist Mucous Membranes Neck: Full Range of Motion, Normal Inspection, Non Tender, Supple, Carotid Bruit Respiratory: Chest Non Tender, Normal Breath Sounds, No Accessory Muscle Use, No Respiratory Distress, Decreased Breath Sounds Cardiovascular: No Gallop, No JVD, Normal Peripheral Pulses, Systolic Murmur, Gallop/S3, Irregularly Irregular Gastrointestinal: Normal Bowel Sounds, No Organomegaly, No Pulsatile Mass, Non Tender, Soft Back: Normal Inspection, No CVA Tenderness, No Vertebral Tenderness Extremity: Normal Capillary Refill, Normal Inspection, Normal Range of Motion, Non Tender, No Calf Tenderness, No Pedal Edema Neurologic/Psychiatric: Alert, Oriented x3, asp net software developer II-XII Norm as Tested, Depressed Affect, Disoriented, Motor Weakness (all extremities 4/5) Skin: Normal Color, Warm/Dry Lymphatic: No Adenopathy PM&R Medical Assessment & Plan REHAB/MEDICAL ASSESSMENT AND PLAN: REHAB IMPAIRMENT GROUP: Intraparenchymal hematoma with 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 ETIOLOGIC DIAGNOSIS: Intraparenchymal hematoma with 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 The comorbidities that impact the patients function and/or functional outcome by: extensive CAD with multiple stents, memory loss, severe weakness, urinary re tention requiring gonzalez cath in place, fall risk REHAB PLAN: The patient is being admitted to our comprehensive inpatient rehabilitation facility and can tolerate the intensity of service consisting of at least: 180 minutes of therapy a day, 5 out of 7 days a week Rehab treatment will consist of: PT will help regain strength and prevent fall s, OT lizabeth focus on regaining independence in ADL's The patient/family has a good understanding of our discharge process and will benefit from an interdisciplinary inpatient rehabilitation program. The patient has potential to make improvement and is in need of at least two of the following multidisciplinary therapies including but not limited to physical, occupational, speech, and prosthetics and orthotics. Additionally the patient will need services from respiratory, nutritional services, wound care, psy chology, etc. (Customize this to each patient). Given the patients complex condition and risk of further medical complications, rehabilitation services cannot be safely or effectively provided at a lower level of care such as a alf facility. BARRIERS TO DISCHARGE: Home safely with prevention of falls and clear confusion to return home with ESTIMATED LOS: 10 days DISPOSITION: Home RELEVANT CHANGES SINCE PREADMISSION SCREENING: I have compared the patients medical and functional status at the time of the preadmission screening and there are: no changes PROGNOSIS: Fair to Good REHABILITATION GOALS: 1. PT will help ambulate to prevent orthostatic hypotension 2. OT will help regain ability to toilet and shower in order to decrease burden on All the above goals were reviewed with the patient and he/she is in agreement. By signing this document, I acknowledge that I have personally performed a full physical examination on this patient within 24 hours of admission to this inpatient rehabilitation facility and have determined the patient to be able to tolerate the above course of treatment at an intensive level for a reasonable period of time. I will be completing a detailed individualized Plan of Care for this patient by day #4 of the patients stay based upon the Preadmission Screen, the Post-Admission Evaluation, and the therapy evaluations. Admission Dx/Comorbidities: (1) Intraparenchymal hematoma of brain ICD Codes: S06.360A - Traumatic hemorrhage of cerebrum, unspecified, without loss of consciousness, initial encounter (2) Intracranial shunt ICD Codes: Z98.2 - Presence of cerebrospinal fluid drainage device (3) S/P AAA repair ICD Codes: Z98.890 - Other specified postprocedural states; Z86.79 - Personal history of other diseases of the circulatory system (4) Hx of CABG ICD Codes: Z95.1 - Presence of aortocoronary bypass graft (5) Vertigo ICD Codes: R42 - Dizziness and giddiness (6) Cognitive deficits ICD Codes: R41.89 - Other symptoms and signs involving cognitive functions and awareness (7) Renal lithiasis ICD Codes: N20.0 - Calculus of kidney (8) Ischemic cardiomyopathy ICD Codes: I25.5 - Ischemic cardiomyopathy (9) Brain aneurysm ICD Codes: I67.1 - Cerebral aneurysm, nonruptured (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 Codes: I72.5 - Aneurysm of other precerebral arteries (11) SYL (obstructive sleep apnea) ICD Codes: G47.33 - Obstructive sleep apnea (adult) (pediatric) (12) PVD (peripheral vascular disease) ICD Codes: I73.9 - Peripheral vascular disease, unspecified (13) Weakness ICD Codes: R53.1 - Weakness (14) Renal insufficiency ICD Codes: N28.9 - Disorder of kidney and ureter, unspecified (15) NPH (normal pressure hydrocephalus) ICD Codes: G91.2 - (Idiopathic) normal pressure hydrocephalus (16) CAD (coronary artery disease) ICD Codes: I25.10 - Atherosclerotic heart disease of [place] coronary artery without angina pectoris (17) Atrial fibrillation ICD Codes: I48.91 - Unspecified atrial fibrillation (18) COPD (chronic obstructive pulmonary disease) ICD Codes: J44.9 - Chronic obstructive pulmonary disease, unspecified (19) Gastric reflux ICD Codes: K21.9 - Gastro-esophageal reflux disease without esophagitis (20) History of Meniere's disease Status: Acute ICD Codes: Z86.69 - Personal history of other diseases of the nervous system and sense organs (21) Frequent falls Status: Acute ICD Codes: R29.6 - Repeated falls SOLO MENDENHALL DO Sep 18, 2019 21:34 POS
--- NOTE | 2019-09-18 22:45 | NUR ---
PT VERY ANXIOUS AND PULLING AT TELEMETRY PROBES, REMOVED CPAP AND WAS ATTEMPTING TO GET OUT OF BED. STAFF ATTEMPTED TO REORIENT PT. PRN XANAX ADMIN WHEN REORIENTATION NOT EFFECTIVE.
[2019-09-19 05:32] LABS: BASOPHILS % (AUTO) 0 % (0-10); EOSINOPHILS # (AUTO) 0.1 10^3/uL (0.0-0.3); EOSINOPHILS % (AUTO) 2 % (0-10); HEMATOCRIT 33 % (40-54); HEMOGLOBIN 10.5 G/DL (13.3-17.7); LYMPHOCYTES # (AUTO) 1.6 X 10^3 (1.0-4.0); LYMPHOCYTES % (AUTO) 21 % (12-44); MEAN CORPUSCULAR HEMOGLOBIN 28 PG (25-34); MEAN CORPUSCULAR HGB CONC 32 G/DL (32-36); MEAN CORPUSCULAR VOLUME 87 FL (80-99); MONOCYTES # (AUTO) 0.7 X 10^3 (0.0-1.0); MONOCYTES % (AUTO) 9 % (0-12); NEUTROPHILS % (AUTO) 68 % (42-75); PLATELET COUNT 259 10^3/uL (130-400); RED CELL DISTRIBUTION WIDTH 16.4 % (10.0-14.5); WHITE BLOOD COUNT 7.3 10^3/uL (4.3-11.0)
[2019-09-19 06:00] VITALS: BP 133/83
[2019-09-19 06:05] LABS: ALBUMIN 3.4 GM/DL (3.2-4.5); BILIRUBIN,TOTAL 0.8 MG/DL (0.1-1.0); CALCIUM 8.8 MG/DL (8.5-10.1); CREATININE SERUM 1.5 MG/DL (0.60-1.30); MAGNESIUM 2.2 MG/DL (1.6-2.4); POTASSIUM 4.3 MMOL/L (3.6-5.0); TOTAL PROTEIN 6.4 GM/DL (6.4-8.2)
[2019-09-19] MEDS: VITAMIN D3 1,000 UNITS (CHOLECALCIFEROL) TABLET PO SCH ×3 (06:57→11:09)
[2019-09-19] MEDS: MULTIVIT W/MINERALS TAB (THERAGRAN M) PO SCH (06:58)
[2019-09-19] MEDS ORDERED: WARF3TAB56 PO (08:23)
--- NOTE | 2019-09-19 08:30 | Consultation ---
History of Present Illness History of Present Illness Patient Consulted On(char/time) 09/19/19 08:29 Date Seen by Provider: Sep 19, 2019 Time Seen by Provider: 09:00 Reason for Visit: Hypotension History of Present Illness PT IS AN 84 Y/O MALE WHO IS WELL KNOWN TO ME FROM CLINIC. MICHAEL HAS EXTENSIVE CARDIAC HISTORY WITH MULTIPLE PROCEDURES FROM [facility] IN [place], HAS HX OF DISSECTING THORACIC AORTIC ANEURYSM, AND HAS A BASILAR ARTERY ANEURYSM OF THE BRAIN. HE WAS FOUND AT HOME WITH INCREASED CONFUSION, BROUGHT TO THE EMERGENCY DEPARTMENT AT [facility] AND WAS FOUND TO HAVE A NEW PARENCHYMA BLEED. HE WAS TRANSFERRED TO [facility] IN THE CARE OF THE NEUROSURGERY TEAM, AND THEY DETERMINED THAT SINCE HIS REPEAT CT SCAN DID NOT SHOW RE-BLEEDING FROM HIS INITIAL [facility] CT SCAN THEY DECIDED UPON CONSERVATIVE THERAPY. MICHAEL WAS DISCHARGED BACK TO [facility] FOR INPATIENT REHAB. Allergies and Home Medications Allergies Coded Allergies: amoxicillin (Verified Allergy, Severe, RASH, pt has received Ancef & Cefepime in the past, 05/25/19) clavulanic acid (Verified Allergy, Severe, RASH, 12/26/18) Iodinated Contrast Media (Verified Allergy, Unknown, 12/26/18) Home Medications Acetaminophen 500 Mg Tablet, 1,000 MG PO Q6H PRN for PAIN-MILD (1-4), (Reported) Allopurinol 100 Mg Tablet, 100 MG PO DAILY, (Reported) Amiodarone HCl 200 Mg Tablet, 200 MG PO BID, (Reported) Atorvastatin Calcium 40 Mg Tablet, 40 MG PO DAILY, (Reported) Cetirizine HCl 10 Mg Tablet, 10 MG PO DAILY, (Reported) Cholecalciferol (Vitamin D3) 2,000 Unit Capsule, 2,000 UNIT PO DAILY, (Reported) Citalopram Hydrobromide 20 Mg Tablet, 20 MG PO DAILY, (Reported) Finasteride 5 Mg Tablet, 5 MG PO DAILY, (Reported) Fluticasone Propionate 9.9 Ml [place].susp, 1 SPRAY NS HS PRN for ALLERGIES, (Reported) Losartan Potassium 50 Mg Tablet, 50 MG PO DAILY, (Reported) Multivit-Min/FA/Lycopene/Lut 1 Each Tablet, 0.5 TAB PO BID, (Reported) Pantoprazole Sodium 40 Mg Tablet.dr, 40 MG PO DAILY, (Reported) Ropinirole HCl 0.25 Mg Tablet, 0.25 MG PO BID, (Reported) Spironolactone 25 Mg Tablet, 25 MG PO DAILY, (Reported) Tamsulosin HCl 0.4 Mg Cap, 0.4 MG PO HS, (Reported) Vitamin B Complex 1 Each Tablet, 1 TAB PO DAILY, (Reported) Warfarin Sodium 3 Mg Tablet, 3 MG PO HS, (Reported) Patient Home Medication List Home Medication List Reviewed: Yes Past Fwqmcrz-Ayurad-Lvikah Hx Past Med/Social Hx: Reviewed Nursing Past Med/Soc Hx, Reviewed and Corrections made Patient Social History Alcohol Use: Denies Use Recreational Drug Use: No Smoking Status: Never a Smoker Type Used: Cigarettes 2nd Hand Smoke Exposure: No Recent Foreign Travel: No Contact w/Someone Who Travel: No Recent Infectious Disease Expo: No Recent Hopitalizations: No (12/2018-DIVERTICULITIS/GI BLEED - 03/2019 NPH WITH OCCUPATIONAL HEALTH SPECIALIST SHUNT) Physical Abuse: No Sexual Abuse: No Mistreated: No Fear: No Immunizations Up To Date PED Vaccines UTD: Yes Date of Pneumonia Vaccine: Jul 17, 2018 Date of Influenza Vaccine: Aug 17, 2019 Seasonal Allergies Seasonal Allergies: Yes Past Medical History Surgeries: Yes Angioplasty, Brain Shunt, Cardiac, Coronary Stent, Ear Surgery, Gallbladder, Neurological, Nose, Vascular Surgery Respiratory: Yes (USES CPAP) Sleep Apnea Currently Using CPAP: Yes Currently Using BIPAP: No Cardiac: Yes Aneurysm, Atrial Fibrillation, Cardiomyopathy, Chronic Edema/Swelling, Coronary Artery Disease, High Cholesterol, Hypertension, Peripheral Vascular Neurological: Yes Vertigo Reproductive Disorders: No Sexually Transmitted Disease: No HIV/AIDS: No Genitourinary: Yes (CHRONIC RENAL INSUFFICIENCY) Benign Prostatic Hyperpl, Kidney Stones, Renal Failure Gastrointestinal: Yes (DIVERTICULITIS WITH GI BLEEDING 12/2018) Abdominal Hernia, Gastrointestinal Bleed, Diverticulosis Musculoskeletal: Yes (RESTLESS LEG SYNDROME; GAIT DISTURBANCE; FALLS) Arthritis, Gout Endocrine: No HEENT: Yes Loss of Vision: Denies Hearing Impairment: Hard of Hearing, Hearing Aide Left Cancer: No Psychosocial: Yes Depression Integumentary: No Blood Disorders: No Adverse Reaction/Blood Tranf: No (N/A) Family Medical History Reviewed Nursing Family Hx Abdominal aortic aneurysm Arthritis 19 MOTHER Cardiovascular disease 19 FATHER 19 MOTHER G8 SISTER Deafness or hearing loss 19 FATHER 19 MOTHER Hypertension 19 FATHER Myocardial infarction 19 FATHER Osteoporosis 19 MOTHER Heart Disease, Hypertension Review of Systems-General Constitutional: No chills, No fever; malaise, weakness EENTM: No hoarseness, No throat pain Respiratory: No cough, No dyspnea on exertion, No short of breath Cardiovascular: No edema, No palpitations Gastrointestinal: No abdominal pain, No loss of appetite, No nausea, No vomiting Genitourinary: other (URINARY RETENTION) Musculoskeletal: No back pain; muscle weakness Skin: no symptoms reported Psychiatric/Neurological: Anxiety, Depressed, Weakness All Other Systems Reviewed Negative Unless Noted: Yes Physical Exam-General Problems Physical Exam Vital Signs Vital Signs - First Documented 09/18/19 09/18/19 13:25 14:30 Temp 36.8 Pulse 65 Resp 18 B/P (MAP) 132/64 (86) Pulse Ox 92 O2 Delivery Room Air O2 Flow Rate 2.00 Capillary Refill : General Appearance: WD/WN, no apparent distress Eyes: Bilateral Eye Normal Inspection, Bilateral Eye PERRL, Bilateral Eye EOMI HEENT: pharynx normal Neck: non-tender, supple, normal inspection Respiratory: chest non-tender, lungs clear, normal breath sounds, no respiratory distress, no accessory muscle use Cardiovascular: regular rate, rhythm, systolic murmur Gastrointestinal: normal bowel sounds, non tender, soft, no organomegaly, no pulsatile mass Rectal: deferred Back: normal inspection, no vertebral tenderness Extremities: normal range of motion, non-tender, no pedal edema, no calf tenderness, normal capillary refill Neurologic/Psychiatric: sole stapler welt II-XII nml as tested (HEARING LOSS - COCHLEAR IMPLANT RIGHT POSTERIOR SCALP), alert, normal mood/affect, oriented x 3, other Skin: normal color, warm/dry Lymphatic: no adenopathy Assessment/Plan Assessment/Plan Admission Diagnosis/Plan PARENCHYMAL BLEED VERTIGO WEAKNESS HYPERTENSION DEPRESSION CORONARY ARTERY DISEASE CHRONIC ANTICOAGULATION URINARY RETENTION PARENCHYMAL BLEED - SEE CT SCAN REPORT 1. New acute intraparenchymal hemorrhage in the left parieto-occipital region with adjacent edema and mild mass effect. There is also an acute left- sided subdural hematoma measuring up to 5.5 mm in thickness. 2. Re-demonstrated abnormal masslike opacification anterior to the brainstem which may relate to large aneurysm. VERTIGO AND WEAKNESS - SUPPORTIVE CARE AT THIS TIME, CONTINUE WITH THERAPY HYPERTENSION - CONTINUE WITH HOME REGIMEN OF METOPROLOL DEPRESSION - PT ON CHRONIC SSRI THERAPY - CONTINUE WITH CURRENT HOME REGIMEN. CORONARY ARTERY DISEASE - DEFER TO CARDIOLOGY CHRONIC ANTICOAGULATION - MONITOR INR SERIALLY - KEEP LEVEL BETWEEN 2 AND 3. URINARY RETENTION - SEVILLA CATHETER PLACED, WILL HAVE PT FOLLOW UP WITH UROLOGIST OUTPATIENT FOR SEVILLA REMOVAL ON DISCHARGE. Admission Status: Inpatient Order (span 2 midnights) Reason for Inpatient Admission: INPATIENT ADMISSION FOR INPATIENT REHAB - WILL BE AT LEAST 1-2 WEEKS IN HOSPITAL FOR STRENGTHENING. Clinical Quality Measures DVT/VTE Risk/Contraindication: Risk Factor Score Per Nursin RFS Level Per Nursing on Admit: 2=Moderate DAPHNE BHATT MD Sep 19, 2019 08:29 POS
--- NOTE | 2019-09-19 08:54 | Occupational Ther Daily Note ---
OT Current Status-Daily Note Subjective Pt seen in bed, sleeping and easily wakes with verbal intro. Pt hesitantly agreeable to OT tx session, stating very tired and "still asleep." Pt denies pain. Mental Status/Objective Patient Orientation: Normal For Age Attachments: Suprapubic Catheter, Telemetry ADL-Treatment Therapy Code Descriptions/Definitions Functional [place] Measure: 0=Not Assessed/NA 4=Minimal Assistance 1=Total Assistance 5=Supervision or Setup 2=Maximal Assistance 6=Modified [place] 3=Moderate Assistance 7=Complete IndependenceSCALE: Activities may be completed with or without assistive devices. 3-Azgvsvcmrg-izkzmkt completes the activity by him/herself with no assistance from a helper. 5-Set-up or Clean-up Assistance-helper sets up or cleans up; patient completes activity. [place] assists only prior to or following the activity. 4-Supervision or Touching Assistance-helper provides verbal cues and/or touchin g/steadying and/or contact guard assistance as patient completes activity. Assistance may be provided throughout the activity or intermittently. 3-Partial/Moderate Assistance-helper does LESS THAN HALF the effort. [place] lifts, holds or supports trunk or limbs, but provides less than half the effort. 2-Substantial/Maximal Assistance-helper does MORE THAN HALF the effort. [place] lifts or holds trunk or limbs and provides more than half the effort. 5-Nmgmnkaph-pmpaim does ALL the effort. Patient does none of the effort to complete the activity. Or, the assistance of 2 or more helpers is required for the patient to complete the activity. If activity was not attempted, code reason: 7-Patient Refused. 9-Not Applicable-not attempted and the patient did not perform the activity before the current illness, exacerbation or injury. 10-Not Attempted due to Environmental Limitations-(lack of equipment, weather restraints, etc.). 88-Not Attempted due to Medical Conditions or Safety Concerns. Eating (QC): 7 Oral Hygiene (QC): 7 Shower/Bathe Self (QC): 2 (Pt completes sponge bath EOB, completes washing UB and upper legs. Pt requires assist with feet, back, bottom. Pt requires CGA while in stance and SBA-CGA during EOB activity) Upper Body Dressing (QC): 7 (Pt washes underarms under shirt, denies need to take off.) Lower Body Dressing (QC): 3 (Pt able to thread BLE after catheter threaded through R LE pant leg, completes donning with min A and CGA in stance.) Toileting Hygiene (QC): 2 (Pt TD with bottom hygiene on this date due to c/o fatigue and limited strength.) Toilet Transfer (QC): 7 on/ off footwear: (socks) 3- mod A for R LE sock due to positioning and fatigue. Other Treatment Pt sits EOB, states fatigue and eyes are closed. Pt's vitals assessed EOB at 800- 91% 02 with 3L 02, 123/65 at 75 BPM. Pt completes LB washing with CGA due to balance and drowsiness. Pt requires cues to maintain open eyes. Pt states he is typically not "this tired." Pt sit to stand with CGA to FWW with good hand position. Pt's vitals attempted in stance, not able to be obtained due to fatigue and need to return to sit. Pt requests return to bed. Pt lays down for ~3 minutes, returns to sit EOB and ambulates with FWW and CGA to recliner chair. Pt's vitals attempted once more in stance, BP not able to be obtained, 02 96% with 3L and 64 BPM. Pt requests to return to sleep; with encouragement, pt declines further OT tx session at this time, stating, "No, I want to sleep." Pt reclined in recliner chair, chair alarm set, call light within reach, all needs met. Education OT Patient Education: Correct positioning, Energy conservation, Modified ADL techniques, Purpose of tx/functional activities, Safety issues Teaching Recipient: Patient Teaching Methods: Demonstration, Discussion Response to Teaching: Verbalize Understanding, Return Demonstration, Reinforcement Needed OT Short Term Goals Short Term Goals Eatin Oral hygiene: 6 Upper body dressin Lower body dressin OT Usp Goals Usp Goals Time Frame: Oct 02, 2019 Eating (QC): 6 Oral Hygiene (QC): 6 Toileting Hygiene (QC): 6 Shower/Bathe Self (QC): 4 Upper Body Dressing (QC): 6 Lower Body Dressing (QC): 6 On/Off Footwear (QC): 6 Additional Goals: 1-Demonstrate ADL Tasks, 2-Verbalize Understanding, 3- ImproveStrength/Ronit 1=Demonstrate adherence to instructed precautions during ADL tasks. 2=Patient will verbalize/demonstrate understanding of assistive devices/modifications for ADL. 3=Patient will improve strength/tolerance for activity to enable patient to perform ADL's. OT Education/Plan Problem List/Assessment Assessment: Decreased Activ Tolerance, Decreased Safety Aware, Impaired Funct Balance, Impaired I ADL's, Impaired Self-Care Skills Discharge Recommendations Plan/Recommendations: Continue POC Treatment Plan/Plan of Care Treatment,Training & Education: Yes Patient would benefit from OT for education, treatment and training to promote independence in ADL's, mobility, safety and/or upper extremity function for ADL's. Plan of Care: ADL Retraining, Caregiver Training, Functional Mobility, Group Exercise/Act as Ind, UE Funct Exercise/Act Treatment Duration: Oct 02, 2019 Frequency: At least 5 of 7 days/Wk (IRF) Estimated Hrs Per Day: 1.5 hours per day Agreement: Yes Rehab Potential: Fair Time/GCodes Start Time: 08:00 Stop Time: 08:45 Total Time Billed (hr/min): 45 Billed Treatment Time 1, ADL 3 (45) ELO BAEZ OTR Sep 19, 2019 08:54 POS
[2019-09-19] MEDS ORDERED: NON-FORMULARY MEDICATION 1 EA EA (Vitamin B Complex 1 TAB) PO SCH (09:00)
[2019-09-19] MEDS ORDERED: LOSARTAN 50 MG (COZAAR) TAB PO SCH (09:00)
--- NOTE | 2019-09-19 09:21 | PM&R Progress Note ---
Subjective HPI/CC On Admission Date Seen by Provider: Sep 19, 2019 Time Seen by Provider: 09:00 Subjective/Events-last exam Pt very drowsy Family concerned that Keppra 500mg twice a day is causing the drowsiness that is interfering with his recovery and participation in therapy We will reach out to Dr. Butcher to make that decision since [facility] records did reveal that the family talked to them about that already Bowel movement was last on 09/17/19 Hgb 10.5, Creatinine 1.5, AST and ALT are 108 and [address] per urology direction and Dr. Butcher Appreciate Dr. Lawson's help Heplock IV fluid now Orthostasis has been a long standing problem Only walked five steps I did update Dr. Butcher on the need for him to probably go to a jail for two weeks and see if he can have a slower recovery and then be able to come back to inpatient rehab to see if we can get him strong enough to go home Review of Systems General: Fatigue Neurological: Weakness, Numbness, Incoordination, Confusion Objective Exam Vital Signs Vital Signs Date Time Temp Pulse Resp B/P (MAP) Pulse Ox O2 Delivery O2 Flow Rate FiO2 09/19/19 20:46 62 129/78 (95) 09/19/19 17:26 37.0 16 93 Nasal Cannula 2.00 Capillary Refill : General Appearance: No Apparent Distress, WD/WN HEENT: PERRL/EOMI, TMs Normal, Normal ENT Inspection, Pharynx Normal, Moist Mucous Membranes Neck: Full Range of Motion, Normal Inspection, Non Tender, Supple, Carotid Bruit Respiratory: Chest Non Tender, Normal Breath Sounds, No Accessory Muscle Use, No Respiratory Distress Cardiovascular: Regular Rate, Rhythm, No Gallop, No JVD, Normal Peripheral Pulses, Systolic Murmur, Gallop/S3 Gastrointestinal: Normal Bowel Sounds, No Organomegaly, No Pulsatile Mass, Non Tender, Soft Back: Normal Inspection, No CVA Tenderness, No Vertebral Tenderness Extremity: Normal Capillary Refill, Normal Inspection, Normal Range of Motion, Non Tender, No Calf Tenderness, No Pedal Edema Neurologic/Psychiatric: Alert, Oriented x3, Motor Weakness Skin: Normal Color, Warm/Dry Lymphatic: No Adenopathy Results/Procedures Lab Laboratory Tests 09/19/19 05:10 Patient resulted labs reviewed. FIM Transfers Therapy Code Descriptions/Definitions Functional [place] Measure: 0=Not Assessed/NA 4=Minimal Assistance 1=Total Assistance 5=Supervision or Setup 2=Maximal Assistance 6=Modified [place] 3=Moderate Assistance 7=Complete IndependenceSCALE: Activities may be completed with or without assistive devices. 2-Wqttasvdav-jnwomxq completes the activity by him/herself with no assistance from a helper. 5-Set-up or Clean-up Assistance-helper sets up or cleans up; patient completes activity. [place] assists only prior to or following the activity. 4-Supervision or Touching Assistance-helper provides verbal cues and/or touching/steadying and/or contact guard assistance as patient completes activity. Assistance may be provided throughout the activity or intermittently. 3-Partial/Moderate Assistance-helper does LESS THAN HALF the effort. [place] lifts, holds or supports trunk or limbs, but provides less than half the effort. 2-Substantial/Maximal Assistance-helper does MORE THAN HALF the effort. [place] lifts or holds trunk or limbs and provides more than half the effort. 3-Cwskfebkv-mqbwvy does ALL the effort. Patient does none of the effort to complete the activity. Or, the assistance of 2 or more helpers is required for the patient to complete the activity. If activity was not attempted, code reason: 7-Patient Refused. 9-Not Applicable-not attempted and the patient did not perform the activity before the current illness, exacerbation or injury. 10-Not Attempted due to Environmental Limitations-(lack of equipment, weather restraints, etc.). 88-Not Attempted due to Medical Conditions or Safety Concerns. Roll Left to Right (QC): 4 Sit to Lying (QC): 4 Sit to Stand (QC): 3 Chair/Ooh-ko-Fqcel Xfer(QC): 3 Car Transfer (QC): 3 Gait Training Does the Patient Walk?: Yes Walk 10 feet (QC): 3 (modA) Walk 50 ft with 2 Turns(QC): 3 (modA) Walk 150 ft (QC): 88 Walking 10ft/uneven surface-QC: 3 Gait Assistive Device: FWW Wheelchair Training Does the Pt Use a Wheelchair?: No Wheel 50 ft with 2 turns (QC): 9 Wheel 150 ft (QC): 9 Type of Wheelchair: Manual Stair Training 1 Step (curb) (QC): 3 4 Steps (QC): 88 12 Steps (QC): 9 Balance Picking up an Object (QC): 6 (from sitting position) ADL-Treatment Eating (QC): 7 Oral Hygiene (QC): 7 Shower/Bathe Self (QC): 2 (Pt completes sponge bath EOB, completes washing UB and upper legs. Pt requires assist with feet, back, bottom. Pt requires CGA while in stance and SBA-CGA during EOB activity) Upper Body Dressing (QC): 7 (Pt washes underarms under shirt, denies need to take off.) Lower Body Dressing (QC): 3 (Pt able to thread BLE after catheter threaded through R LE pant leg, completes donning with min A and CGA in stance.) On/Off Footwear (QC): 6 Toileting Hygiene (QC): 2 (Pt TD with bottom hygiene on this date due to c/o fatigue and limited strength.) Toilet Transfer (QC): 7 Assessment/Plan Assessment and Plan Assess & Plan/Chief Complaint Assessment: Intraparenchymal hematoma Falls Confusion CRI NPH CONSUMER INSIGHTS INTERN shunts Extensive CAD AF Plan: Eval NH options for slower recovery IRF protocol in meantime Monitor orthostasis (1) Intraparenchymal hematoma of brain (2) Orthostasis (3) COPD (chronic obstructive pulmonary disease) (4) Atrial fibrillation (5) CAD (coronary artery disease) (6) NPH (normal pressure hydrocephalus) (7) Renal insufficiency (8) Vertigo (9) Weakness (10) PVD (peripheral vascular disease) (11) Cognitive deficits (12) SYL (obstructive sleep apnea) (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
--- NOTE | 2019-09-19 10:04 | Physical Therapy Daily Note ---
PT Daily Note-Current Subjective Patient seated in recliner with eyes closed. States that he is very tired and feels he is still asleep. Patient slumped, eyes closed, and limited responses to questions. Pain Numeric Pain Scale: 0-No Pain Location: No Pain Reported Mental Status Patient Orientation: Normal For Age Attachments: Oxygen (2L), Suprapubic Catheter Transfers SCALE: Activities may be completed with or without assistive devices. 8-Lxdyfglkls-qaakdap completes the activity by him/herself with no assistance from a helper. 5-Set-up or Clean-up Assistance-helper sets up or cleans up; patient completes activity. [place] assists only prior to or following the activity. 4-Supervision or Touching Assistance-helper provides verbal cues and/or touching/steadying and/or contact guard assistance as patient completes activity. Assistance may be provided throughout the activity or intermittently. 3-Partial/Moderate Assistance-helper does LESS THAN HALF the effort. [place] lifts, holds or supports trunk or limbs, but provides less than half the effort. 2-Substantial/Maximal Assistance-helper does MORE THAN HALF the effort. [place] lifts or holds trunk or limbs and provides more than half the effort. 2-Vdpdpulsv-bilxqe does ALL the effort. Patient does none of the effort to complete the activity. Or, the assistance of 2 or more helpers is required for the patient to complete the activity. If activity was not attempted, code reason: 7-Patient Refused. 9-Not Applicable-not attempted and the patient did not perform the activity before the current illness, exacerbation or injury. 10-Not Attempted due to Environmental Limitations-(lack of equipment, weather restraints, etc.). 88-Not Attempted due to Medical Conditions or Safety Concerns. Sit to Lying (QC): 4 Sit to Stand (QC): 3 Chair/Ofx-af-Inbiq Xfer(QC): 3 Min A; increased chair height to stand, lift recline chair utilized Gait Training Does the Patient Walk?: Yes Distance: 5' Gait Assistive Device: FWW pt. ambulated only recliner to bed secondary to poor tolerance and poor response to Rx. Exercises Seated Therapy Exercises: Ankle pumps, Long arc quads, Hip flexion, Hip abd/add Seated Reps: 10 Assessment Initial vitals taken in seated at 154/60, 77 bpm, and 96% O2. Upon standing, BP at 113/59 and then 106/100. During transfer, patient O2 dropped to 90% while on 2L O2. Reported some dizziness while standing for prolonged time. After returning to seated position, BP 105/53. Patient able to perform some seated LE exercises but continued to keep eyes closed, slumped in chair, and less responsive to questions and cues. Patient transferred to bed with min A and laid supine, continuing to keep eyes closed. PT Usp Goals Stereotype Caster Goals PT Usp Goals Time Frame: Oct 12, 2019 Roll Left & Right (QC): 6 Sit to Lying (QC): 6 Lying-Sitting on Side/Bed(QC): 6 Sit to Stand (QC): 6 Chair/Nof-pb-Scfwq Xfer(QC): 6 Toilet Transfer (QC): 6 Car Transfer (QC): 6 Does the Patient Walk: Yes Walk 10 feet (QC): 6 Walk 50ft with 2 Turns (QC): 6 Walk 150 ft (QC): 6 Walking 10ft on Uneven Surface: 6 1 Step (curb) (QC): 6 4 Steps (QC): 9 12 Steps (QC): 9 Picking up an Object (QC): 6 Does the Pt use WC or Scooter?: No Type: N/A Type: N/A PT Plan Treatment/Plan Treatment Plan: Continue Plan of Care Treatment Plan: Bed Mobility, Education, Functional Activity Ronit, Functional Strength, Gait, Safety, Therapeutic Exercise, Transfers Treatment Duration: Oct 12, 2019 Frequency: At least 5 of 7 days/Wk (IRF) Estimated Hrs Per Day: 1.5 hours per day Patient and/or Family Agrees t: Yes Time/GCodes Time In: 900 Time Out: 935 Total Billed Treatment Time: 35 Total Billed Treatment 1 visit EX 15min FA 20min NEDRA ALVARADO [employer] TE[employer]ER Sep 19, 2019 10:04 POS
--- NOTE | 2019-09-19 10:28 | NUR ---
"RD ASSESSMENT PMHx: hypotension; HTN; afib; CAD; HLD; COPD; diverticulosis; chronic edema PT INTERACTION: Pt was semi-awake and pleasant during nutrition assessment. Pt states current appetite is poor and has been for the past 2-3 days. Note pt avg PO intake of 38% x2meal, per chart review. Pt states following a regular diet at home, and has no issues with chewing/swallowing food at this time. Pt states no recent issues with n/v/c/d at this time, and was not sure when last BM was. Note no BM has been recorded and pt currently on bowel regimen of colace BID; miralax BID; and senna BID, per chart review. Pt states no recent wt changes. Note unable to determine recent wt hx, per chart review. ABNORMAL NUTRITION-RELATED LAB VALUES LOW: HIGH: BUN 25; cr 1.50; AST 108; ALT 198 Est. kcal needs: 4954-1090 kcal | 20-25 kcal/kg Est. Pro needs: 90-108 g Pro | 1.0-1.2 g Pro/kg PES STATEMENT: Inadequate oral intake (NI-2.1) related to loss of appetite as evidenced by pt interview | avg PO intake 38% x2meal INTERVENTION: Continue with current diet order of Regular diet. Add Ensure Enlive (vary) to meals BID. Provides 350 kcal and 13 g Pro per serving. Will continue to follow and reassess as pt needs and status change. MONITOR/EVALUATE: PO Intake; Plan of Care; Hydration Status; Weight Status; Lab Values Arnulfo Barragan, MS, RD, LD"
[2019-09-19] MEDS: LEVETIRACETAM 500 MG (KEPPRA) TAB PO SCH (11:09)
[2019-09-19] MEDS: ALLOPURINOL 100 MG (ZYLOPRIM) TAB PO SCH (11:09)
[2019-09-19] MEDS: SENNA W/DOCUSATE (SENOKOT S) TABLET PO SCH ×2 (11:09→20:48)
[2019-09-19] MEDS: AMIODARONE 200 MG (CORDARONE) TAB PO SCH ×2 (11:09→20:48)
[2019-09-19] MEDS: rOPINIRole 0.25 MG (REQUIP) TAB PO SCH ×2 (11:10→20:48)
[2019-09-19] MEDS: ASPIRIN E.C. 325 MG (ECOTRIN) TABLET PO SCH (11:10)
[2019-09-19] MEDS: FINASTERIDE (PROSCAR) 5 MG TAB PO SCH (11:10)
[2019-09-19] MEDS: PANTOPRAZOLE 40 MG (PROTONIX) TAB PO SCH (11:10)
[2019-09-19] MEDS: SPIRONOLACTONE 25 MG (ALDACTONE) TAB PO SCH (11:10)
[2019-09-19] MEDS: LORATADINE (CLARITIN) 10 MG TAB PO SCH (11:10)
[2019-09-19] MEDS: POLYETHYLENE GLYCOL 17 GM (MIRALAX) PACK PO SCH ×2 (11:12→20:48)
[2019-09-19] MEDS ORDERED: CITA40TA19 PO (11:14)
[2019-09-19] MEDS ORDERED: ATOR80TA76 PO (11:14)
[2019-09-19 11:21] VITALS: BP 150/82
--- NOTE | 2019-09-19 11:47 | Speech Therapy Daily Note ---
Speech Daily Progress Note Subjective Date Seen by Provider: Sep 19, 2019 Time Seen by Provider: 00:30 Patient resting in his bed. Patient required maximum verbal prompts to participate. Objective Patient completed general information questions with 60% accuracy given maximum cues to attend to task. Assessment Assessment Current Status: Fair Progress Treatment Plan Continue Plan of Care Speech Short Term Goals Short Term Goals Short Term Goals 1) The patient will complete memory tasks related to his daily needs at 90% or greater with minimal cues. 2) The patient will complete problem solving tasks related to his daily needs at 90% or greater with minimal cues. 3) The patient will complete safety awareness tasks related to his daily needs at 90% or greater with minimal cues. Speech Alf Goals Manager Msw Goals Patient will improve cognitive-communication abilities in order to complete daily tasks with minimal assist. Speech-Plan Patient/Family Goals Patient/Family Goals: Patient plans on returning home with his upon rehab discharge. Treatment Plan Speech Therapy Treatment Plan: Continue Plan of Care Patient exhibits confused state which requires redirection to task frequently. Treatment Duration: Sep 28, 2019 Frequency: 5 times per week Estimated Hrs Per Day: .5 hour per day Rehab Potential: Fair Barriers to Learning: Patient has cognitive deficits. Pt/Family Agrees to Plan: Yes Safety Risks/Education Teaching Recipient: Patient Teaching Methods: Demonstration, Discussion Response to Teaching: Verbalize Understanding, Return Demonstration, Reinforcement Needed Education Topics Provided: Continued safety and communication of his wants/needs. Time Speech Therapy Time In: 10:30 Speech Therapy Time Out: 11:00 Total Billed Time: 30 Billed Treatment Time 1, SYLVIA Cordoba Sep 19, 2019 11:47 POS
--- NOTE | 2019-09-19 11:53 | Individualized Plan of Care ---
Individualized Plan of Care Rehab Nursing IPOC Order Admission Date Sep 18, 2019 at 13:25 Current Orders Orders Admission Order(Inpt,Obs,Sdc) (09/18/19 10:25) Vital Signs: Per Unit Policy ( 08,16,00 (09/18/19 10:25) Gavin Bolanos 09,21 (09/18/19 10:25) Sequential Compression Device Q4H (09/18/19 10:25) Trouble Shooting Mechanic-Inpt Rehab Con (09/18/19 10:25) Rehab Nursing Orders-Ipoc (09/18/19 10:25) Physical Therapy Rehab Orders (09/18/19 10:25) Occupational Therapy Rehab Ord (09/18/19 10:25) Speech Therapy Rehab Orders (09/18/19 10:25) General/Regular (09/18/19 Dinner) Intake & Output 06,14,22 (09/18/19 10:25) Precautions (Aru) (09/18/19 10:25) Weekly Weight WEEK (09/18/19 10:25) Initiate Admission Nursing Pro .admission (09/18/19 10:25) Acetaminophen Tablet (Tylenol Tablet) (09/18/19 10:30) Alprazolam Tablet (Xanax Tablet) (09/18/19 10:30) Calcium Carbonate Chew Tablet (Antacid C (09/18/19 10:30) Diphenhydramine Tablet (Benadryl Tablet) (09/18/19 10:30) Docusate Sodium Capsule (Colace Capsule) (09/18/19 21:00) Docusate Sodium Capsule (Colace Capsule) (09/18/19 10:30) Bisacodyl Suppository (Dulcolax Supposit (09/18/19 10:30) Lactulose Oral Solution (Enulose Oral So (09/18/19 10:30) Na Phos/Na Biphos Enema (Fleet Enema Earle (09/18/19 10:30) Guaifenesin/Codeine Syrup (Robitussin Ac (09/18/19 10:30) Hydrocodone/Apap 5/325 Tablet (Lortab 5 (09/18/19 10:30) Loperamide Tablet (Imodium Tablet) (09/18/19 10:30) Melatonin Tablet (Melatonin Tablet) (09/18/19 10:30) Polyethylene Glycol Powder Pkt (Miralax (09/18/19 21:00) Ondansetron Oral Dissolve Tab (Zofran (09/18/19 10:30) Senna S Tablet (Senokot S Tablet) (09/18/19 21:00) Initiate Admission Nursing Pro .admission (09/18/19 10:25) Consult Physician (09/18/19 13:47) Patient Visit (09/18/19 ) Speech Sound Lang Comp (09/18/19 ) General/Regular (09/18/19 Lunch) Patient Visit (09/18/19 ) Pt Eval Moderate Complexity (09/18/19 ) Exercise Therap, Ea 15 Min (09/18/19 ) Functional Activities, Ea 15 (09/18/19 ) Consult Cardiology (09/18/19 16:31) Ns Iv 1000 Ml (Sodium Chloride 0.9%) (09/18/19 16:45) Amiodarone Tablet (Cordarone Tablet) (09/18/19 21:00) Aspirin Enteric Coated Tablet (Ecotrin T (09/19/19 09:00) Atorvastatin Tablet (Lipitor) (09/19/19 09:00) Pantoprazole Tablet (Protonix Tablet) (09/19/19 09:00) Spironolactone Tablet (Aldactone Tablet) (09/19/19 09:00) Levetiracetam Tablet (Keppra Tablet) (09/18/19 21:00) Losartan Tablet (Cozaar Tablet) (09/19/19 09:00) Comprehensive Metabolic Panel (09/19/19 05:00) BNP (09/19/19 05:00) Ekg Tracing (09/19/19 06:00) Telemetry (09/18/19 17:42) Telemetry Nursing Assessment ( (09/18/19 17:42) Catheter(Urinary) Insert & Ass 03,15 (09/18/19 18:13) Ambulate 08,12,20 (09/18/19 18:19) Sequential Compression Device Q4H (09/18/19 18:19) Dvt/Vte Risk - Notifiy Physici Q4H (09/18/19 18:19) Citalopram Tablet (Celexa Tablet) (09/19/19 09:00) Finasteride Tablet (Proscar Tablet) (09/19/19 09:00) Ropinirole Tablet (Requip Tablet) (09/18/19 21:00) Acetaminophen Tablet (Tylenol Tablet) (09/18/19 20:15) Allopurinol Tablet (Zyloprim Tablet) (09/19/19 09:00) Loratadine Tablet (Claritin Tablet) (09/19/19 09:00) Fluticasone Nasal [place] (Flonase Nasal S (09/18/19 21:00) Hydrocodone/Apap 5/325 Tablet (Lortab 5 (09/18/19 20:15) Senna S Tablet (Senokot S Tablet) (09/18/19 21:00) (Nf) Vitamin B Complex (09/19/19 09:00) Cholecalciferol Capsule/Tablet (Vitamin (09/18/19 07:00) Therapeutic Multivitamin Tab (Vitamins, (09/19/19 07:00) Rt Request For Service (09/18/19 20:57) Magnesium (09/19/19 05:00) Cbc With Automated Diff (09/19/19 05:00) Rehab-Intensity Of Therapy (09/19/19 09:45) Ensure Enlive (09/19/19 Lunch) Rehab Nursing Orders: Ongoing Assess. of Cognitive Status, Ongoing Assess. of Function Status, Bladder Management, Bladder Scan, Bladder Training, Bowel Management, Bowel Training, Disease Management & Educaiton, DVT Prophylaxis, Fall Prevention, Fluid/Electrolyte/Nutrition Mgmt, Infection Prevention, Medication Management & Education, Management of Risks & Complications, Management of Skin Intergrity, Nutrition Management, Pain Management, Patient/Family Support, Safety Management Intensity of Therapy to be met Patient to be seen: 15 hrs over 7 cons. days PT IPOC Problem List: Activity Tolerance, Functional Strength, Safety, Balance, Gait, Transfer, Bed Mobility Treatment Plan: Continue Plan of Care Bed Mobility, Education, Functional Activity Ronit, Functional Strength, Gait, Safety, Therapeutic Exercise, Transfers Treatment Duration: Oct 12, 2019 Frequency: At least 5 of 7 days/Wk (IRF) Estimated Hrs Per Day: 1.5 hours per day OT IPOC Problems: Decreased Activ Tolerance, Decreased Safety Aware, Impaired Funct Balance, Impaired I ADL's, Impaired Self-Care Skills OT Treatment, Training and Edu: Yes Plan of Care: ADL Retraining, Caregiver Training, Functional Mobility, Group Exercise/Act as Ind, UE Funct Exercise/Act Treatment Duration: Oct 02, 2019 Frequency: At least 5 of 7 days/Wk (IRF) Estimated Hrs Per Day: 1.5 hours per day [facility] Speech Therapy Treatment Plan: Continue Plan of Care Treatment Duration: Sep 28, 2019 Frequency: 5 times per week Estimated Hrs Per Day: .5 hour per day Trouble Shooting Mechanic/Case Mgmt Trouble Shooting Mechanic/Case Managemen: Discharge Planning Dietitian/Cement Rubber Dietitian/Cement Rubber to monitor nutritional status and make changes and/or recommendations as needed and work with speech pathology on dietary upgrades as the occur. Physician [facility] Medical Issues being managed closely and that require the 24 hour availability of a physician: Patient with intraparenchymal hematoma with previous MANAGER VIDEO shunt for normal pressure hydrocephalus along with extensive CAD and PVD and urinary retention requiring Mueller catheter administration along with chronic orthostasis will require close monitoring from primary care provider and cardiology in addition to physiatry management Medical Issues: Bowel/Bladder Function, DVT Prophylaxis, Falls Precautions, Fluid/Electrolyte/Nutrition Balance, Infection Protection, Pain Management Brief Synthesis of Preadmission Screen, Post-Admission Evaluation, and Therapy Evaluations: PT will focus on orthostasis and fall prevention during ambulation with assistive device OT will help regain independent ADL status to lessen the burden on Speech therapy will work on cognition Medical Prognosis: fair Anticipated Length of Stay: 10 days SOLO MENDENHALL DO Sep 19, 2019 11:53 POS
--- NOTE | 2019-09-19 12:02 | Cardiology Progress Note ---
Subjective Date Seen by Provider: Sep 19, 2019 Time Seen by Provider: 11:56 Subjective/Events-last exam Patient is asleep in chair, easily awakens to answer questions. Denies any chest pain or dyspnea. Review of Systems General: No Chills, No Night Sweats, No Fatigue, No Malaise, No Appetite, No Other HEENT: No Head Aches, No Visual Changes, No Eye Pain, No Ear Pain, No Dysphasia, No Sinus Congestion, No Post Nasal Drip, No Sore Throat, No Other Pulmonary: No Dyspnea, No Cough, No Pleuritic Chest Pain, No Other Cardiovascular: No: Chest Pain, Palpitations, Orthopnea, Paroxysmal Noc. Dyspnea, Edema, Lt Headedness, Other Objective-Cardiology Exam Last Set of Vital Signs Vital Signs 09/19/19 09/19/19 11:21 12:53 Temp 36.7 Pulse 66 Resp 18 B/P (MAP) 150/82 (104) Pulse Ox 97 O2 Delivery Nasal Cannula O2 Flow Rate 3.00 Capillary Refill : I&O Intake and Output 09/19/19 00:00 Output Total 150 ml Balance -150 ml Output Urine Total 150 ml Daily Weight Change No General: Alert, Oriented X3, Cooperative HEENT: PERRLA Neck: Supple Lungs: Clear to Auscultation, Normal Air Movement Heart: Regular Rate, Normal S1, Normal S2 Abdomen: Normal Bowel Sounds, Soft, No Tenderness Extremities: No Clubbing, No Edema Skin: No Rashes, No Significant Lesion Neuro: Normal Speech Psych/Mental Status: Mental Status NL Results Lab Laboratory Tests 09/19/19 05:10 A/P-Cardiology Admission Diagnosis Acute CVA Intracranial bleed Paroxysmal atrial fibrillation Hypertension Assessment/Plan Status post intracranial bleed, left occipital intraparenchymal and left posterior subdural hemorrhage, was evaluated and treated by neurology, currently recovering and receiving physical therapy and occupational therapy. Managed by primary care team Hypotensive episode, had multiple episode of hypotension while in , family reporting questionable history of hypotension in the past. Continue to monitor blood pressure closely. Paroxysmal atrial fibrillation, currently off oral anticoagulation due to intracranial bleed. Was maintained on Coumadin. Maintained on amiodarone. I will monitor on telemetry. Coronary artery disease multiple interventions in the past done by Dr. Pandey reporting history of 10 stents in the past, 5 balloon angioplasties. Reporting last intervention done 5 years ago. Last LHC done January 2018 revealed 50% diag, 30-50% prox RCA and 30-40% ostial RCA. Most recent stress test done January 2019 revealing no ischemia or infarct. CHF, ischemic cardiomyopathy, most recent 2D Echo done March 2019 revealed EF 45%, grade 1 diastolic dysfunction, aortic valve sclerosis without stenosis. 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 Follows with neurology in . 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 Weber History of thoracic aortic dissection, treated conservatively in [place] in the past, continue to monitor Labile hypertension with episode of hypotension, maintained on losartan, continue to monitor blood pressure Hyperlipidemia, monitor lipids CKD- continue to monitor renal function Elevated LFT's- continue to monitor. Generalized weakness and debility. Patient was seen and evaluated with [place], examination performed, management plan was discussed, agree with the current scribed note, I made few changes to the note using Italic font Patient is sitting in bed comfortable, denied any chest pain, no palpitation, still having orthostatic dizziness On examination lungs were clear to auscultation, heart is regular rate and rhythm I have stopped Lipitor due to elevated liver enzymes Stop losartan due to orthostatic hypotension Monitor blood pressure and lipids Clinical Quality Measures DVT/VTE Risk/Contraindication: Risk Factor Score Per Nursin RFS Level Per Nursing on Admit: 2=Moderate [place] GOMEZ Sep 19, 2019 12:02 GABBY HEREDIA MD Sep 19, 2019 16:50 POS
--- NOTE | 2019-09-19 12:26 | Occupational Ther Daily Note ---
OT Current Status-Daily Note Subjective Pt seen asleep in bed, wakes easily with verbals. Pt reclined in bed, agreeable to OT tx session, denies pain. Mental Status/Objective Patient Orientation: Normal For Age Attachments: Oxygen ADL-Treatment Therapy Code Descriptions/Definitions Functional [place] Measure: 0=Not Assessed/NA 4=Minimal Assistance 1=Total Assistance 5=Supervision or Setup 2=Maximal Assistance 6=Modified [place] 3=Moderate Assistance 7=Complete IndependenceSCALE: Activities may be completed with or without assistive devices. 7-Gfkliljvay-ahzkdlc completes the activity by him/herself with no assistance from a helper. 5-Set-up or Clean-up Assistance-helper sets up or cleans up; patient completes activity. [place] assists only prior to or following the activity. 4-Supervision or Touching Assistance-helper provides verbal cues and/or touching/steadying and/or contact guard assistance as patient completes activi ty. Assistance may be provided throughout the activity or intermittently. 3-Partial/Moderate Assistance-helper does LESS THAN HALF the effort. [place] lifts, holds or supports trunk or limbs, but provides less than half the effort. 2-Substantial/Maximal Assistance-helper does MORE THAN HALF the effort. [place] lifts or holds trunk or limbs and provides more than half the effort. 9-Sfintvymu-syoufy does ALL the effort. Patient does none of the effort to complete the activity. Or, the assistance of 2 or more helpers is required for the patient to complete the activity. If activity was not attempted, code reason: 7-Patient Refused. 9-Not Applicable-not attempted and the patient did not perform the activity before the current illness, exacerbation or injury. 10-Not Attempted due to Environmental Limitations-(lack of equipment, weather restraints, etc.). 88-Not Attempted due to Medical Conditions or Safety Concerns. Eating (QC): 6 Oral Hygiene (QC): 6 Other Treatment Pt seen with nursing. Pt completes taking medication while OT holds water cup for easier manipulation of small pills. Pt able to grasp small items with success and takes few pills at a time. Pt then brings cup to mouth with IND. Pt agrees to brush teeth with IND within bed. Pt completes face hygiene post-oral care. Pt states he feels more awake than previous session, educated on use of TV remote and nurse call light. Pt left in room with call light in reach, all needs met. Education OT Patient Education: Correct positioning, Modified ADL techniques, Safety issues Teaching Recipient: Patient Teaching Methods: Demonstration, Discussion Response to Teaching: Verbalize Understanding, Return Demonstration OT Short Term Goals Short Term Goals Eatin Oral hygiene: 6 Upper body dressin Lower body dressin OT Denial Resolution Specialist Goals Long-Term Goals Time Frame: Oct 02, 2019 Eating (QC): 6 (met) Oral Hygiene (QC): 6 (met) Toileting Hygiene (QC): 6 Shower/Bathe Self (QC): 4 Upper Body Dressing (QC): 6 Lower Body Dressing (QC): 6 On/Off Footwear (QC): 6 Additional Goals: 1-Demonstrate ADL Tasks, 2-Verbalize Understanding, 3- ImproveStrength/Ronit 1=Demonstrate adherence to instructed precautions during ADL tasks. 2=Patient will verbalize/demonstrate understanding of assistive devices/modifications for ADL. 3=Patient will improve strength/tolerance for activity to enable patient to perform ADL's. OT Education/Plan Problem List/Assessment Assessment: Decreased Activ Tolerance, Dependent Transfers, Impaired Funct Balance, Impaired I ADL's, Impaired Self-Care Skills Discharge Recommendations Plan/Recommendations: Continue POC Treatment Plan/Plan of Care Treatment,Training & Education: Yes Patient would benefit from OT for education, treatment and training to promote independence in ADL's, mobility, safety and/or upper extremity function for ADL's. Plan of Care: ADL Retraining, Caregiver Training, Functional Mobility, Group Exercise/Act as Ind, UE Funct Exercise/Act Treatment Duration: Oct 02, 2019 Frequency: At least 5 of 7 days/Wk (IRF) Estimated Hrs Per Day: 1.5 hours per day Agreement: Yes Rehab Potential: Fair Time/GCodes Start Time: 11:00 Stop Time: 11:15 Total Time Billed (hr/min): 15 Billed Treatment Time 1, ADL (15) ELO BAEZ OTR Sep 19, 2019 12:26 POS
--- NOTE | 2019-09-19 14:03 | Occupational Ther Daily Note ---
OT Current Status-Daily Note Subjective Pt laying in bed sleeping at start of session with daughter and present. Family states pt has been pretty drowsy today. Pt easily awoken and agreeable to OT tx. Pain Numeric Pain Scale: 0-No Pain Mental Status/Objective Attachments: Oxygen ADL-Treatment Therapy Code Descriptions/Definitions Functional [place] Measure: 0=Not Assessed/NA 4=Minimal Assistance 1=Total Assistance 5=Supervision or Setup 2=Maximal Assistance 6=Modified [place] 3=Moderate Assistance 7=Complete IndependenceSCALE: Activities may be completed with or without assistive devices. 0-Jhwqqpmqei-iloawts completes the activity by him/herself with no assistance from a helper. 5-Set-up or Clean-up Assistance-helper sets up or cleans up; patient completes activity. [place] assists only prior to or following the activity. 4-Supervision or Touching Assistance-helper provides verbal cues and/or touching/steadying and/or contact guard assistance as patient completes activity. Assistance may be provided throughout the activity or intermittently. 3-Partial/Moderate Assistance-helper does LESS THAN HALF the effort. [place] lifts, holds or supports trunk or limbs, but provides less than half the effort. 2-Substantial/Maximal Assistance-helper does MORE THAN HALF the effort. [place] lifts or holds trunk or limbs and provides more than half the effort. 2-Cnxjpsmdo-vocmki does ALL the effort. Patient does none of the effort to complete the activity. Or, the assistance of 2 or more helpers is required for the patient to complete the activity. If activity was not attempted, code reason: 7-Patient Refused. 9-Not Applicable-not attempted and the patient did not perform the activity before the current illness, exacerbation or injury. 10-Not Attempted due to Environmental Limitations-(lack of equipment, weather restraints, etc.). 88-Not Attempted due to Medical Conditions or Safety Concerns. Other Treatment Pt agreeable to OT tx with focus on functional endurance with tasks, fine motor coordination, and functional activities. Pt placed and removed 1" pegs from foam pegboard using RUE, pt attempted task with LUE but was unsuccessful with placement. Pt completed task without rest breaks, he had slight difficulty finding the holes but was able to use his fingers to assist with finding the holes by feel. Assist x2 required to scoot pt up towards HOB. Post OT session, pt laying in bed, call light in reach, family present, all needs met and PT present to begin tx. Education OT Patient Education: Correct positioning, Energy conservation, Exercise program, Modified ADL techniques, Progress toward Goal/Update tx plan, Purpose of tx/functional activities, Transfer techniques Teaching Recipient: Patient Teaching Methods: Demonstration, Discussion Response to Teaching: Verbalize Understanding OT Short Term Goals Short Term Goals Eatin Oral hygiene: 6 Upper body dressin Lower body dressin OT Detention Goals Corporate Officer Goals Time Frame: Oct 02, 2019 Eating (QC): 6 (met) Oral Hygiene (QC): 6 (met) Toileting Hygiene (QC): 6 Shower/Bathe Self (QC): 4 Upper Body Dressing (QC): 6 Lower Body Dressing (QC): 6 On/Off Footwear (QC): 6 Additional Goals: 1-Demonstrate ADL Tasks, 2-Verbalize Understanding, 3-ImproveStrength/Ronit 1=Demonstrate adherence to instructed precautions during ADL tasks. 2=Patient will verbalize/demonstrate understanding of assistive devices/modifications for ADL. 3=Patient will improve strength/tolerance for activity to enable patient to perform ADL's. OT Education/Plan Problem List/Assessment Assessment: Decreased Activ Tolerance, Decreased UE Strength, Impaired Bed Mobility, Impaired Funct Balance, Impaired I ADL's, Impaired Self-Care Skills Discharge Recommendations Plan/Recommendations: Continue POC Treatment Plan/Plan of Care Treatment,Training & Education: Yes Patient would benefit from OT for education, treatment and training to promote independence in ADL's, mobility, safety and/or upper extremity function for ADL's. Plan of Care: ADL Retraining, Caregiver Training, Functional Mobility, Group Exercise/Act as Ind, UE Funct Exercise/Act Treatment Duration: Oct 02, 2019 Frequency: At least 5 of 7 days/Wk (IRF) Estimated Hrs Per Day: 1.5 hours per day Agreement: Yes Rehab Potential: Fair Time/GCodes Start Time: 13:20 Stop Time: 13:50 Total Time Billed (hr/min): 30 Billed Treatment Time 1, FA 2 ULI العلي OT Sep 19, 2019 14:03 POS
--- NOTE | 2019-09-19 14:13 | Physical Therapy Daily Note ---
PT Daily Note-Current Subjective Pt agreeable to PT session. Pain Numeric Pain Scale: 0-No Pain Appearance Pt in bed upon arrival, and daughter present during tx session. Pt keeps eyes closed during most activities, states he is just bored. At end of session, pt in bed with call light, phone and bedside table within reach, and dtr present and requesting to speak with nurse. Relayed message to nurse. Mental Status Patient Orientation: Person, Place, Time, Situation Attachments: Oxygen, Mueller Catheter Transfers SCALE: Activities may be completed with or without assistive devices. 3-Krfwnbvuzq-msifphn completes the activity by him/herself with no assistance from a helper. 5-Set-up or Clean-up Assistance-helper sets up or cleans up; patient completes activity. [place] assists only prior to or following the activity. 4-Supervision or Touching Assistance-helper provides verbal cues and/or touching/steadying and/or contact guard assistance as patient completes activity. Assistance may be provided throughout the activity or intermittently. 3-Partial/Moderate Assistance-helper does LESS THAN HALF the effort. [place] lifts, holds or supports trunk or limbs, but provides less than half the effort. 2-Substantial/Maximal Assistance-helper does MORE THAN HALF the effort. [place] lifts or holds trunk or limbs and provides more than half the effort. 6-Ynylmrkji-fnhoza does ALL the effort. Patient does none of the effort to complete the activity. Or, the assistance of 2 or more helpers is required for the patient to complete the activity. If activity was not attempted, code reason: 7-Patient Refused. 9-Not Applicable-not attempted and the patient did not perform the activity before the current illness, exacerbation or injury. 10-Not Attempted due to Environmental Limitations-(lack of equipment, weather restraints, etc.). 88-Not Attempted due to Medical Conditions or Safety Concerns. Sit to Lying (QC): 4 Lying to Sitting/Side of Bed(Q: 4 Pt performed supine to and from sit transitions with min effort, use of bedrail and HOB slightly elevated. Exercises Supine Ex: Ankle pumps (50), Quad Set, Heel Slides, Knee to chest, Scooting, Straight leg raise, Hip abd/add Supine Reps: 20 (pt requires skilled inst for correct technique and performance, tries to perform very fast and with less motion) Seated Therapy Exercises: Ankle pumps, Long arc quads, Hip flexion, Hip abd/add Seated Reps: 20 (pt requires skilled inst for correct technique and performance, tries to perform very fast and with less motion) Treatments BP supine at rest 111/73, after 1st set LE ex's 105/71, 104/69 after supine to sit, 104/55 after sitting ex's EOB, 142/83 after sit to supine, 119/56 after 2nd set of bed ex's LE ex's supine, supine to sit, sit EOB x5 min performing LE ex's, sit to supine, LE ex's supine. Noted SPO2 fluctuating 90-93%, HR 73-77 throughout tx session Assessment pt continuing with BP dropping during activities PT Half-Way Goals Utility Teller Goals PT Half-Way Goals Time Frame: Oct 12, 2019 Roll Left & Right (QC): 6 Sit to Lying (QC): 6 Lying-Sitting on Side/Bed(QC): 6 Sit to Stand (QC): 6 Chair/Xti-uj-Fbgwl Xfer(QC): 6 Toilet Transfer (QC): 6 Car Transfer (QC): 6 Does the Patient Walk: Yes Walk 10 feet (QC): 6 Walk 50ft with 2 Turns (QC): 6 Walk 150 ft (QC): 6 Walking 10ft on Uneven Surface: 6 1 Step (curb) (QC): 6 4 Steps (QC): 9 12 Steps (QC): 9 Picking up an Object (QC): 6 Does the Pt use WC or Scooter?: No Type: N/A Type: N/A PT Plan Treatment/Plan Treatment Plan: Continue Plan of Care Treatment Plan: Bed Mobility, Education, Functional Activity Ronit, Functional Strength, Gait, Safety, Therapeutic Exercise, Transfers Treatment Duration: Oct 12, 2019 Frequency: At least 5 of 7 days/Wk (IRF) Estimated Hrs Per Day: 1.5 hours per day Patient and/or Family Agrees t: Yes Safety Risks/Education Patient Education: Transfer Techniques, Correct Positioning, Safety Issues Teaching Recipient: Patient Teaching Methods: Demonstration, Discussion Response to Teaching: Verbalize Understanding, Return Demonstration, Reinforcement Needed Time/GCodes Time In: 1350 Time Out: 1420 Total Billed Treatment Time: 30 Total Billed Treatment 1 visit, EX x30 min JUANJOSE BEATTY CELL PREPARER Sep 19, 2019 14:13 POS
[2019-09-19 17:26] VITALS: BP 118/76
[2019-09-19 20:46] VITALS: BP 129/78
[2019-09-20 05:47] VITALS: BP 137/85
[2019-09-20 05:47] LABS: BASOPHILS % (AUTO) 0 % (0-10); EOSINOPHILS # (AUTO) 0.1 10^3/uL (0.0-0.3); EOSINOPHILS % (AUTO) 2 % (0-10); HEMATOCRIT 34 % (40-54); HEMOGLOBIN 10.7 G/DL (13.3-17.7); LYMPHOCYTES # (AUTO) 1.5 X 10^3 (1.0-4.0); LYMPHOCYTES % (AUTO) 21 % (12-44); MEAN CORPUSCULAR HEMOGLOBIN 28 PG (25-34); MEAN CORPUSCULAR HGB CONC 32 G/DL (32-36); MEAN CORPUSCULAR VOLUME 87 FL (80-99); MEAN PLATELET VOLUME 9.9 FL (7.4-10.4); MONOCYTES # (AUTO) 0.5 X 10^3 (0.0-1.0); MONOCYTES % (AUTO) 8 % (0-12); NEUTROPHILS % (AUTO) 70 % (42-75); PLATELET COUNT 252 10^3/uL (130-400); RED CELL DISTRIBUTION WIDTH 16.4 % (10.0-14.5); WHITE BLOOD COUNT 7.1 10^3/uL (4.3-11.0)
[2019-09-20] MEDS: MULTIVIT W/MINERALS TAB (THERAGRAN M) PO SCH (06:01)
[2019-09-20 06:29] LABS: ALBUMIN 3.4 GM/DL (3.2-4.5); BILIRUBIN,TOTAL 0.9 MG/DL (0.1-1.0); CALCIUM 8.9 MG/DL (8.5-10.1); CREATININE SERUM 1.37 MG/DL (0.60-1.30); POTASSIUM 4.4 MMOL/L (3.6-5.0); TOTAL PROTEIN 6.4 GM/DL (6.4-8.2)
--- NOTE | 2019-09-20 08:04 | Cardiology Progress Note ---
Subjective Date Seen by Provider: Sep 20, 2019 Time Seen by Provider: 08:03 Subjective/Events-last exam Patient is sitting up in bed, eating breakfast, no new complaints. Denies any chest pain or dyspnea, denies dizziness. Review of Systems General: No Chills, No Night Sweats, No Fatigue, No Malaise, No Appetite, No Other HEENT: No Head Aches, No Visual Changes, No Eye Pain, No Ear Pain, No Dysphasia, No Sinus Congestion, No Post Nasal Drip, No Sore Throat, No Other Pulmonary: No Dyspnea, No Cough, No Pleuritic Chest Pain, No Other Cardiovascular: No: Chest Pain, Palpitations, Orthopnea, Paroxysmal Noc. Dyspnea, Edema, Lt Headedness, Other Objective-Cardiology Exam Last Set of Vital Signs Vital Signs 09/20/19 16:21 Temp 37.0 Pulse 63 Resp 16 B/P (MAP) 143/80 (101) Pulse Ox 95 O2 Delivery Nasal Cannula O2 Flow Rate 3.00 Capillary Refill : I&O Intake and Output 09/20/19 00:00 Intake Total 440 ml Output Total 525 ml Balance -85 ml Intake Oral 440 ml Output Urine Total 525 ml General: Alert, Oriented X3, Cooperative HEENT: PERRLA Neck: Supple Lungs: Clear to Auscultation, Normal Air Movement Heart: Regular Rate, Normal S1, Normal S2 Abdomen: Normal Bowel Sounds, Soft, No Tenderness Extremities: No Clubbing, No Edema Skin: No Rashes, No Significant Lesion Neuro: Normal Speech Psych/Mental Status: Mental Status NL Results Lab Laboratory Tests 09/20/19 05:17 A/P-Cardiology Admission Diagnosis Acute CVA Intracranial bleed Paroxysmal atrial fibrillation Hypertension Assessment/Plan Status post intracranial bleed, left occipital intraparenchymal and left posterior subdural hemorrhage, was evaluated and treated by neurology, currently recovering and receiving physical therapy and occupational therapy. Managed by primary care team Hypotensive episode, had multiple episode of hypotension while in , family reporting questionable history of hypotension in the past. Continue to monitor blood pressure closely. Paroxysmal atrial fibrillation, currently off oral anticoagulation due to intracranial bleed. Was maintained on Coumadin. Maintained on amiodarone. I will monitor on telemetry. Coronary artery disease multiple interventions in the past done by Dr. Pandey reporting history of 10 stents in the past, 5 balloon angioplasties. Reporting last intervention done 5 years ago. Last LHC done January 2018 revealed 50% diag, 30-50% prox RCA and 30-40% ostial RCA. Most recent stress test done January 2019 revealing no ischemia or infarct. CHF, ischemic cardiomyopathy, most recent 2D Echo done March 2019 revealed EF 45%, grade 1 diastolic dysfunction, aortic valve sclerosis without stenosis. 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 Follows with neurology in . 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 Weber History of thoracic aortic dissection, treated conservatively in [place] in the past, continue to monitor Labile hypertension with episode of hypotension, losartan discontinued, continue to monitor. Hyperlipidemia, monitor lipids CKD- continue to monitor renal function Elevated LFT's- continue to monitor. Generalized weakness and debility. Patient was seen and evaluated with [place], examination performed, management plan was discussed, agree with the current scribed note, I made few changes to the note using Italic font Patient was sitting in bed comfortably, denied any chest pain or shortness of breath, no palpitation. Examination lungs were clear to auscultation, heart is regular Continue to monitor telemetry, continue on amiodarone, monitor liver enzymes after stopping statin Continue with physical therapy Clinical Quality Measures DVT/VTE Risk/Contraindication: Risk Factor Score Per Nursin RFS Level Per Nursing on Admit: 2=Moderate [place] GOMEZ Sep 20, 2019 08:04 GABBY HEREDIA MD Sep 20, 2019 16:29 POS
[2019-09-20 09:25] VITALS: BP 136/70
[2019-09-20 09:29] VITALS: BP 87/63
--- NOTE | 2019-09-20 09:31 | PM&R Progress Note ---
Subjective HPI/CC On Admission Date Seen by Provider: Sep 20, 2019 Time Seen by Provider: 08:15 Subjective/Events-last exam Pt a little more alert but still a bit confused. Bowel movement 09/17 so will initiate meds. Used CPAP last night. Decreased appetite, he reports he has difficulty swallowing so will have speech therapy evaluate that. Orthostasis continues this is a chronic issue. Keppra and Cozaar will be discontinued. Checked meds and labs Reviewed therapy notes Conferred with RN After rounds SW met with family and it was decided he was able to participate more in the program today and will reassess on Tuesday and meanwhile NH will be selected from the family. Review of Systems General: Fatigue Neurological: Confusion Objective Exam Vital Signs Vital Signs Date Time Temp Pulse Resp B/P (MAP) Pulse Ox O2 Delivery O2 Flow Rate FiO2 09/21/19 00:29 64 09/20/19 22:07 Nasal Cannula 2.00 09/20/19 16:21 37.0 16 143/80 (101) 95 Capillary Refill : General Appearance: No Apparent Distress, WD/WN, Chronically ill HEENT: PERRL/EOMI, TMs Normal, Normal ENT Inspection, Pharynx Normal, Moist Mucous Membranes Neck: Full Range of Motion, Normal Inspection, Non Tender, Supple, Carotid Bruit Respiratory: Chest Non Tender, Lungs Clear, Normal Breath Sounds, No Accessory Muscle Use, No Respiratory Distress Cardiovascular: Regular Rate, Rhythm, No Gallop, No JVD, Normal Peripheral Pulses, Systolic Murmur, Gallop/S3 Gastrointestinal: Normal Bowel Sounds, No Organomegaly, No Pulsatile Mass, Non Tender, Soft Back: Normal Inspection, No CVA Tenderness, No Vertebral Tenderness Extremity: Normal Capillary Refill, Normal Inspection, Normal Range of Motion, Non Tender, No Calf Tenderness, No Pedal Edema Neurologic/Psychiatric: Alert, operations general agent II-XII Norm as Tested, Depressed Affect, Disoriented, Motor Weakness (severe 4/5 legs and arms) Skin: Normal Color, Warm/Dry Lymphatic: No Adenopathy Results/Procedures Lab Laboratory Tests 09/20/19 05:17 Patient resulted labs reviewed. FIM Transfers Therapy Code Descriptions/Definitions Functional [place] Measure: 0=Not Assessed/NA 4=Minimal Assistance 1=Total Assistance 5=Supervision or Setup 2=Maximal Assistance 6=Modified [place] 3=Moderate Assistance 7=Complete IndependenceSCALE: Activities may be completed with or without assistive devices. 3-Xnoiihrzmz-ftyybsu completes the activity by him/herself with no assistance from a helper. 5-Set-up or Clean-up Assistance-helper sets up or cleans up; patient completes activity. [place] assists only prior to or following the activity. 4-Supervision or Touching Assistance-helper provides verbal cues and/or touching/steadying and/or contact guard assistance as patient completes activity. Assistance may be provided throughout the activity or intermittently. 3-Partial/Moderate Assistance-helper does LESS THAN HALF the effort. [place] lifts, holds or supports trunk or limbs, but provides less than half the effort. 2-Substantial/Maximal Assistance-helper does MORE THAN HALF the effort. [place] lifts or holds trunk or limbs and provides more than half the effort. 6-Guxylqeyk-xnluiv does ALL the effort. Patient does none of the effort to complete the activity. Or, the assistance of 2 or more helpers is required for the patient to complete the activity. If activity was not attempted, code reason: 7-Patient Refused. 9-Not Applicable-not attempted and the patient did not perform the activity before the current illness, exacerbation or injury. 10-Not Attempted due to Environmental Limitations-(lack of equipment, weather restraints, etc.). 88-Not Attempted due to Medical Conditions or Safety Concerns. Roll Left to Right (QC): 4 Sit to Lying (QC): 4 Sit to Stand (QC): 3 Chair/Hab-oo-Gzaau Xfer(QC): 3 Car Transfer (QC): 3 Gait Training Does the Patient Walk?: Yes Distance: 5' Walk 10 feet (QC): 3 (modA) Walk 50 ft with 2 Turns(QC): 3 (modA) Walk 150 ft (QC): 88 Walking 10ft/uneven surface-QC: 3 Gait Assistive Device: FWW Wheelchair Training Does the Pt Use a Wheelchair?: No Wheel 50 ft with 2 turns (QC): 9 Wheel 150 ft (QC): 9 Stair Training 1 Step (curb) (QC): 3 4 Steps (QC): 88 12 Steps (QC): 9 Balance Picking up an Object (QC): 6 (from sitting position) ADL-Treatment Eating (QC): 6 Oral Hygiene (QC): 6 Shower/Bathe Self (QC): 2 (Pt completes sponge bath EOB, completes washing UB and upper legs. Pt requires assist with feet, back, bottom. Pt requires CGA while in stance and SBA-CGA during EOB activity) Upper Body Dressing (QC): 7 (Pt washes underarms under shirt, denies need to take off.) Lower Body Dressing (QC): 3 (Pt able to thread BLE after catheter threaded through R LE pant leg, completes donning with min A and CGA in stance.) On/Off Footwear (QC): 6 Toileting Hygiene (QC): 2 (Pt TD with bottom hygiene on this date due to c/o fatigue and limited strength.) Toilet Transfer (QC): 7 Assessment/Plan Assessment and Plan Assess & Plan/Chief Complaint Assessment: Intraparenchymal hematoma Falls Confusion CRI NPH CONTINUING EDUCATION SPECIALIST shunts Extensive CAD AF Plan: Eval NH options for slower recovery if he fails this program over the weekend IRF protocol in meantime Monitor orthostasis (1) Intraparenchymal hematoma of brain (2) Orthostasis (3) COPD (chronic obstructive pulmonary disease) (4) Atrial fibrillation (5) CAD (coronary artery disease) (6) NPH (normal pressure hydrocephalus) (7) Renal insufficiency (8) Vertigo (9) Weakness (10) PVD (peripheral vascular disease) (11) Cognitive deficits (12) SYL (obstructive sleep apnea) (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 (14) Brain aneurysm (15) Ischemic cardiomyopathy (16) Gastric reflux (17) Renal lithiasis (18) Intracranial shunt (19) Hx of CABG (20) S/P AAA repair SOLO MENDENHALL DO Sep 20, 2019 09:31 POS
[2019-09-20 09:45] VITALS: BP 117/82
[2019-09-20] MEDS: FINASTERIDE (PROSCAR) 5 MG TAB PO SCH (09:50)
[2019-09-20] MEDS: AMIODARONE 200 MG (CORDARONE) TAB PO SCH ×2 (09:50→20:58)
[2019-09-20] MEDS: rOPINIRole 0.25 MG (REQUIP) TAB PO SCH ×2 (09:51→20:58)
[2019-09-20] MEDS: PANTOPRAZOLE 40 MG (PROTONIX) TAB PO SCH (09:51)
[2019-09-20] MEDS: LORATADINE (CLARITIN) 10 MG TAB PO SCH (09:51)
[2019-09-20] MEDS: ALLOPURINOL 100 MG (ZYLOPRIM) TAB PO SCH (09:51)
[2019-09-20] MEDS: ASPIRIN E.C. 325 MG (ECOTRIN) TABLET PO SCH (09:51)
[2019-09-20] MEDS: SPIRONOLACTONE 25 MG (ALDACTONE) TAB PO SCH (09:53)
[2019-09-20] MEDS: POLYETHYLENE GLYCOL 17 GM (MIRALAX) PACK PO SCH ×2 (09:53→21:03)
[2019-09-20] MEDS: SENNA W/DOCUSATE (SENOKOT S) TABLET PO SCH ×2 (09:53→21:03)
--- NOTE | 2019-09-20 09:59 | Physical Therapy Daily Note ---
PT Daily Note-Current Subjective Pt. in bed, agrees to Rx. Denies any pain or dizziness at all points of the Rx. Pt. does c/o fatigue while standing for a period in one spot for a BP check Pain Location: No Pain Reported Mental Status Patient Orientation: Normal For Age Attachments: Oxygen (3L), Other-See Comments (halter mon) Transfers SCALE: Activities may be completed with or without assistive devices. 8-Okqmqhfrmp-ixiuwgp completes the activity by him/herself with no assistance from a helper. 5-Set-up or Clean-up Assistance-helper sets up or cleans up; patient completes activity. [place] assists only prior to or following the activity. 4-Supervision or Touching Assistance-helper provides verbal cues and/or touching/steadying and/or contact guard assistance as patient completes activity. Assistance may be provided throughout the activity or intermittently. 3-Partial/Moderate Assistance-helper does LESS THAN HALF the effort. [place] lifts, holds or supports trunk or limbs, but provides less than half the effort. 2-Substantial/Maximal Assistance-helper does MORE THAN HALF the effort. [place] lifts or holds trunk or limbs and provides more than half the effort. 4-Ggectrglv-haaqwz does ALL the effort. Patient does none of the effort to complete the activity. Or, the assistance of 2 or more helpers is required for the patient to complete the activity. If activity was not attempted, code reason: 7-Patient Refused. 9-Not Applicable-not attempted and the patient did not perform the activity before the current illness, exacerbation or injury. 10-Not Attempted due to Environmental Limitations-(lack of equipment, weather restraints, etc.). 88-Not Attempted due to Medical Conditions or Safety Concerns. Roll Left & Right (QC): 6 Sit to Lying (QC): 4 Lying to Sitting/Side of Bed(Q: 4 Sit to Stand (QC): 5 Chair/Ukp-lt-Miyja Xfer(QC): 5 pt. attempts to sup to sit TRF sit up style with momentum rocking but failed, instructed in rolling to side to sit with CGA with success. sit to stands x 6-7 trials CGA. Gait Training Does the Patient Walk?: Yes Walk 10 feet (QC): 5 Gait Persons Needed: 1 Gait Assistive Device: FWW assisted with extended O2 tubing and did short bouts around room secondary to fatigue as well as checking pts BP status occas Exercises Supine Ex: Bridging, Ankle pumps, Quad Set, Rolling, Glut sets, Heel Slides, Short Arc Quads, Scooting (up in bed indep with instruction), Straight leg raise, Hip abd/add Supine Reps: 20 Seated Therapy Exercises: Ankle pumps, Sit to stand, Long arc quads, Hip flexion, Hip abd/add Seated Reps: 15 Assessment Current Status: Good Progress BP stable at all positions, sitting BP 136/70 PT Penitentiary Goals Penitentiary Goals PT Multimedia Educational Specialist Goals Time Frame: Oct 12, 2019 Roll Left & Right (QC): 6 Sit to Lying (QC): 6 Lying-Sitting on Side/Bed(QC): 6 Sit to Stand (QC): 6 Chair/Kiy-qo-Racpr Xfer(QC): 6 Toilet Transfer (QC): 6 Car Transfer (QC): 6 Does the Patient Walk: Yes Walk 10 feet (QC): 6 Walk 50ft with 2 Turns (QC): 6 Walk 150 ft (QC): 6 Walking 10ft on Uneven Surface: 6 1 Step (curb) (QC): 6 4 Steps (QC): 9 12 Steps (QC): 9 Picking up an Object (QC): 6 Does the Pt use WC or Scooter?: No Type: N/A Type: N/A PT Plan Treatment/Plan Treatment Plan: Continue Plan of Care Treatment Plan: Bed Mobility, Education, Functional Activity Ronit, Functional Strength, Gait, Safety, Therapeutic Exercise, Transfers Treatment Duration: Oct 12, 2019 Frequency: At least 5 of 7 days/Wk (IRF) Estimated Hrs Per Day: 1.5 hours per day Patient and/or Family Agrees t: Yes Safety Risks/Education Patient Education: Gait Training, Transfer Techniques, Correct Positioning, Disease Process, Safety Issues Teaching Recipient: Patient Teaching Methods: Demonstration, Discussion Response to Teaching: Verbalize Understanding, Return Demonstration, Reinforcement Needed Time/GCodes Time In: 900 Time Out: 1000 Total Billed Treatment Time: 60 Total Billed Treatment 1,GT10m,EX20m,FA30m NEDRA ALVARADO IT PROJECT LEAD Sep 20, 2019 09:59 POS
--- NOTE | 2019-09-20 10:31 | ST Dysphagia Evaluation ---
Speech Evaluation-General Medical Diagnosis Intraparenchymal hematoma Onset Date: Sep 13, 2019 Therapy Diagnosis Therapy Diagnosis: Oropharyngeal Dysphagia Precautions Precautions: Aspiration Referral Referring Physician: Dr. Fernandez Medical History Pertinent Medical History: Atrial Fib, Arthritis, CABG, CAD, HTN, PVD Reviewed History: Yes Social History Current Living Status: Spouse Speech PLF/Current-Dysphagia Prior Level of Function Prior to patient's current illness he ate/drank anything he wanted. Subjective The patient was pleasant and cooperative with the Bedside Dysphagia Evaluation. Cognitive Status Patient Orientation: Person, Confused, Place, Situation Confusion noted intermittently. Oral Motor Skills Dentition: Natural, Stained Current Food Consistancy: Regular Ability to Follow Directions: Good Oral Expression Ability: Mild Impairment Voice Voice Phonatory-Based Quality: Normal Voice Pitch: Normal Voice Loudness: Mildly Soft/Quiet Face Facial Symmetry: Symmetrical Oral-Facial Assessment Oral-Facial Dentition: Normal Labial Seal Description: Normal Smile: Normal Puff Cheeks: Normal Lingual Protrusion: Normal Lingual ROM: Normal Lingual Strength: Normal Pharynx Velopharyngeal Move.: Normal Volitional Dry Swallow: Yes Voluntary Cough: Yes Can Clear Throat Volitionally: Yes Dysphagia Evaluation Consistencies Presented: Regular, Thin Liquid, Mechanical Soft, Pureed Patient demo normal oral phase of swallow for all consistencies presented. Patient demo normal pharyngeal phase with all consistencies except regular which the patient stated "it just won't go down". Funct. Velo/Pharyngeal Symptom: Clears Throat Dietary Recommendations: Mechanical Soft Liquid Recommendations: Thin Swallowing Precautions: Alternate Liquids/Solids Dysphagia Evaluation Summary The patient is a pleasant 84 year old male who was admitted to the ARU for strengthening prior to returning home. The patient had stated to the doctor he was having difficulty with swallowing. A Bedside Dysphagia Evaluation was completed per physician order. Patient was presented thin via 1/2 tsp x2 and small sips via straw x2 without difficulty. Patient was presented 1/2 tsp bites of puree, mechanical soft and regular. No difficulty noted with puree and mechan ical soft. The regular texture was difficult for patient to swallow. He stated "it felt stuck". Patient is recommended for a Dysphagia II diet level with thin liquids. Information was provided to his nurse as well as written on the white board in his room. Speech Short Term Goals Short Term Goals Short Term Goals 1) The patient will complete memory tasks related to his daily needs at 90% or greater with minimal cues. 2) The patient will complete problem solving tasks related to his daily needs at 90% or greater with minimal cues. 3) The patient will complete safety awareness tasks related to his daily needs at 90% or greater with minimal cues. 4) The patient will tolerate least restrictive diet without s/s of aspiration at 90%. 5) The patient will utilize compensatory strategies for safe oral intake at 90% with minimal cues. Speech Global Account Executive Goals Chcf Goals Patient will improve cognitive-communication abilities in order to complete daily tasks with minimal assist. Patient will maintain adequate nutrition/hydration via safe effective swallow function. Speech-Plan Patient/Family Goals Patient/Family Goals: Patient plans on returning home with his upon rehab discharge. Treatment Plan Speech Therapy Treatment Plan: Continue Plan of Care Patient will receive dysphagia therapy. Treatment Duration: Sep 28, 2019 Frequency: 5 times per week Estimated Hrs Per Day: .5 hour per day Rehab Potential: Fair Barriers to Learning: Patient has cognitive deficits/confusion. Pt/Family Agrees to Plan: Yes Safety Risks/Education Teaching Recipient: Patient Teaching Methods: Demonstration, Discussion Response to Teaching: Verbalize Understanding, Return Demonstration Education Topics Provided: Safety of oral intake, diet level Time Speech Therapy Time In: 08:30 Speech Therapy Time Out: 09:00 Total Billed Time: 30 Billed Treatment Time 1 SYLVIA Degroot Sep 20, 2019 10:31 POS
--- NOTE | 2019-09-20 11:08 | NUR ---
Initial assessment and review of weekly team conference completed with spouse, Lindsay Godoy, patient sleeping soundly. Patient was admitted to ARU from [facility] 09/18/19 for Left Occipital IPH. Interdisciplinary team discussed that patient's overall status of decline/debility is believed prohibitive for participation in the required rehab therapy hours. SNF admission was recommended with monitor of progress and potential for return to ARU. Lindsay will discuss with their daughter, Dori Can, and update remote mortgage underwriter of next steps. Hand Plug Shaper offered a meeting if desired. Patient resides with his spouse and has been challenged by illness and debility. His goal is to return home as before when safe to do so. Explore options with patient/family and ARU team.
--- NOTE | 2019-09-20 11:55 | Occupational Ther Daily Note ---
OT Current Status-Daily Note Subjective Pt sleeping in chair, woke to touch. Pt agrees to therapy. No c/o pain, c/o fatigue. Mental Status/Objective Patient Orientation: Person, Place, Time, Situation Attachments: IV, Oxygen, Telemetry ADL-Treatment Pt agrees to shower. Due to pt's decreased activity tolerance and fluctuating blood pressure, transferred pt to shower with rolling shower chair with cutout. CGA in standing for transfer from recliner to rolling shower chair. Pt able to doff upper body clothing by self and don by self after set up. CGA in standing to doff pants. Set up and CGA to don pants. Pt able to doff socks then assist to don over toes. Pt able to complete shower sitting on rolling shower chair with cutout, hand held shower and grabbars with SBA after setup. Pt cleansed buttocks/liat area sitting on shower chair with cutout. Pt takes increased time to complete tasks due to frequent recovery breaks. Pt then transferred back to bed, SBA. After therapy, pt lying in bed with call light/phone in reach. All needs met in room. Therapy Code Descriptions/Definitions Functional [place] Measure: 0=Not Assessed/NA 4=Minimal Assistance 1=Total Assistance 5=Supervision or Setup 2=Maximal Assistance 6=Modified [place] 3=Moderate Assistance 7=Complete IndependenceSCALE: Activities may be completed with or without assistive devices. 0-Lskgiaztzq-hgqzfji completes the activity by him/herself with no assistance from a helper. 5-Set-up or Clean-up Assistance-helper sets up or cleans up; patient completes activity. [place] assists only prior to or following the activity. 4-Supervision or Touching Assistance-helper provides verbal cues and/or touching/steadying and/or contact guard assistance as patient completes activity. Assistance may be provided throughout the activity or intermittently. 3-Partial/Moderate Assistance-helper does LESS THAN HALF the effort. [place] lifts, holds or supports trunk or limbs, but provides less than half the effort. 2-Substantial/Maximal Assistance-helper does MORE THAN HALF the effort. [place] lifts or holds trunk or limbs and provides more than half the effort. 8-Vfspncrum-muotri does ALL the effort. Patient does none of the effort to complete the activity. Or, the assistance of 2 or more helpers is required for the patient to complete the activity. If activity was not attempted, code reason: 7-Patient Refused. 9-Not Applicable-not attempted and the patient did not perform the activity before the current illness, exacerbation or injury. 10-Not Attempted due to Environmental Limitations-(lack of equipment, weather restraints, etc.). 88-Not Attempted due to Medical Conditions or Safety Concerns. Oral Hygiene (QC): 6 (Sitting at sink, completed mod I.) Shower/Bathe Self (QC): 4 Upper Body Dressing (QC): 5 Lower Body Dressing (QC): 3 (Footwear (QC) 3) OT Short Term Goals Short Term Goals Eatin Oral hygiene: 6 Upper body dressin Lower body dressin OT Bulb Farmworker Goals Bulb Farmworker Goals Time Frame: Oct 02, 2019 Eating (QC): 6 (met) Oral Hygiene (QC): 6 (met) Toileting Hygiene (QC): 6 Shower/Bathe Self (QC): 4 Upper Body Dressing (QC): 6 Lower Body Dressing (QC): 6 On/Off Footwear (QC): 6 Additional Goals: 1-Demonstrate ADL Tasks, 2-Verbalize Understanding, 3- ImproveStrength/Ronit 1=Demonstrate adherence to instructed precautions during ADL tasks. 2=Patient will verbalize/demonstrate understanding of assistive devices/modifications for ADL. 3=Patient will improve strength/tolerance for activity to enable patient to perform ADL's. OT Education/Plan Problem List/Assessment Assessment: Decreased Activ Tolerance, Decreased UE Strength, Impaired Coordination, Impaired Funct Balance, Impaired Self-Care Skills Discharge Recommendations Plan/Recommendations: Continue POC Treatment Plan/Plan of Care Patient would benefit from OT for education, treatment and training to promote independence in ADL's, mobility, safety and/or upper extremity function for ADL's. Plan of Care: ADL Retraining, Caregiver Training, Functional Mobility, Group Exercise/Act as Ind, UE Funct Exercise/Act Treatment Duration: Oct 02, 2019 Frequency: At least 5 of 7 days/Wk (IRF) Estimated Hrs Per Day: 1.5 hours per day Agreement: Yes Rehab Potential: Fair Time/GCodes Start Time: 11:00 Stop Time: 12:00 Total Time Billed (hr/min): 60 Billed Treatment Time 1 visit-ADL 4 (60 min) LUBA MCCARTHY Sep 20, 2019 11:55 POS
--- NOTE | 2019-09-20 13:41 | Physical Therapy Daily Note ---
PT Daily Note-Current Subjective Pts. family present and assisting him with some final bites of lunch. Pt. states that he is not as energetic as the morning , no pain just feeling tired and a bit weak. "Im not feeling very strong or energetic this afternoon" Pain Location: No Pain Reported Mental Status Patient Orientation: Normal For Age pt. hard of hearing and requires some lip reading accessibility to see therapists face etc Transfers SCALE: Activities may be completed with or without assistive devices. 9-Cjkwuzbgnq-ccybhrh completes the activity by him/herself with no assistance from a helper. 5-Set-up or Clean-up Assistance-helper sets up or cleans up; patient completes activity. [place] assists only prior to or following the activity. 4-Supervision or Touching Assistance-helper provides verbal cues and/or touching/steadying and/or contact guard assistance as patient completes activity. Assistance may be provided throughout the activity or intermittently. 3-Partial/Moderate Assistance-helper does LESS THAN HALF the effort. [place] lifts, holds or supports trunk or limbs, but provides less than half the effort. 2-Substantial/Maximal Assistance-helper does MORE THAN HALF the effort. [place] lifts or holds trunk or limbs and provides more than half the effort. 5-Mqceuxmsj-goumqc does ALL the effort. Patient does none of the effort to complete the activity. Or, the assistance of 2 or more helpers is required for the patient to complete the activity. If activity was not attempted, code reason: 7-Patient Refused. 9-Not Applicable-not attempted and the patient did not perform the activity before the current illness, exacerbation or injury. 10-Not Attempted due to Environmental Limitations-(lack of equipment, weather restraints, etc.). 88-Not Attempted due to Medical Conditions or Safety Concerns. Roll Left & Right (QC): 4 sup to sit and sit to stand CGA to SBA Gait Training Does the Patient Walk?: Yes Gait Assistive Device: FWW 15 ft x 3 CGA no LOB or c/o dizziness but claims he is so tired and cant give much more than that right now Exercises Seated Therapy Exercises: Ankle pumps, Sit to stand, Long arc quads, Hip flex ion, Hip abd/add Seated Reps: 12 Assessment Current Status: Good Progress gives full effort , shows some functional progress this date PT Park Warden Goals Senior Care Goals PT Park Warden Goals Time Frame: Oct 12, 2019 Roll Left & Right (QC): 6 Sit to Lying (QC): 6 Lying-Sitting on Side/Bed(QC): 6 Sit to Stand (QC): 6 Chair/Pna-uo-Obgpp Xfer(QC): 6 Toilet Transfer (QC): 6 Car Transfer (QC): 6 Does the Patient Walk: Yes Walk 10 feet (QC): 6 Walk 50ft with 2 Turns (QC): 6 Walk 150 ft (QC): 6 Walking 10ft on Uneven Surface: 6 1 Step (curb) (QC): 6 4 Steps (QC): 9 12 Steps (QC): 9 Picking up an Object (QC): 6 Does the Pt use WC or Scooter?: No Type: N/A Type: N/A PT Plan Treatment/Plan Treatment Plan: Continue Plan of Care Treatment Plan: Bed Mobility, Education, Functional Activity Ronit, Functional Strength, Gait, Safety, Therapeutic Exercise, Transfers Treatment Duration: Oct 12, 2019 Frequency: At least 5 of 7 days/Wk (IRF) Estimated Hrs Per Day: 1.5 hours per day Patient and/or Family Agrees t: Yes Safety Risks/Education Patient Education: Gait Training, Transfer Techniques, Correct Positioning, Disease Process, Safety Issues Teaching Recipient: Patient Teaching Methods: Demonstration, Discussion Response to Teaching: Verbalize Understanding, Return Demonstration, Reinforcement Needed Time/GCodes Time In: 1300 Time Out: 1330 Total Billed Treatment Time: 30 Total Billed Treatment 1,GT10m,FA20m NEDRA ALVARADO SLICE PLUG CUTTER OPERATOR HELPER Sep 20, 2019 13:41 POS
--- NOTE | 2019-09-20 14:02 | Occupational Ther Daily Note ---
OT Current Status-Daily Note Subjective Pt alert, sitting in recliner. Pt agrees to therapy. Pt states he is tired out. Mental Status/Objective Patient Orientation: Person, Place, Time, Situation Attachments: IV, Oxygen, Telemetry ADL-Treatment Therapy Code Descriptions/Definitions Functional [place] Measure: 0=Not Assessed/NA 4=Minimal Assistance 1=Total Assistance 5=Supervision or Setup 2=Maximal Assistance 6=Modified [place] 3=Moderate Assistance 7=Complete IndependenceSCALE: Activities may be completed with or without assistive devices. 9-Iufyfnbfpo-gkkinpr completes the activity by him/herself with no assistance from a helper. 5-Set-up or Clean-up Assistance-helper sets up or cleans up; patient completes activity. [place] assists only prior to or following the activity. 4-Supervision or Touching Assistance-helper provides verbal cues and/or touching/steadying and/or contact guard assistance as patient completes acti vity. Assistance may be provided throughout the activity or intermittently. 3-Partial/Moderate Assistance-helper does LESS THAN HALF the effort. [place] lifts, holds or supports trunk or limbs, but provides less than half the effort. 2-Substantial/Maximal Assistance-helper does MORE THAN HALF the effort. [place] lifts or holds trunk or limbs and provides more than half the effort. 5-Lpussvota-ptkdax does ALL the effort. Patient does none of the effort to complete the activity. Or, the assistance of 2 or more helpers is required for the patient to complete the activity. If activity was not attempted, code reason: 7-Patient Refused. 9-Not Applicable-not attempted and the patient did not perform the activity before the current illness, exacerbation or injury. 10-Not Attempted due to Environmental Limitations-(lack of equipment, weather restraints, etc.). 88-Not Attempted due to Medical Conditions or Safety Concerns. Eating (QC): 5 (After set up, pt ate a few bites with regular utensils.) Other Treatment Pt completed UE task against gravity and worked on fine motor skills to increase dexterity for daily functional skills. After therapy, pt sitting in recliner with call light/phone in reach. All needs met in room. OT Short Term Goals Short Term Goals Eatin Oral hygiene: 6 Upper body dressin Lower body dressin OT File Drawer Finisher Goals [facility] Goals Time Frame: Oct 02, 2019 Eating (QC): 6 (met) Oral Hygiene (QC): 6 (met) Toileting Hygiene (QC): 6 Shower/Bathe Self (QC): 4 Upper Body Dressing (QC): 6 Lower Body Dressing (QC): 6 On/Off Footwear (QC): 6 Additional Goals: 1-Demonstrate ADL Tasks, 2-Verbalize Understanding, 3-Improve Strength/Ronit 1=Demonstrate adherence to instructed precautions during ADL tasks. 2=Patient will verbalize/demonstrate understanding of assistive devices/modifications for ADL. 3=Patient will improve strength/tolerance for activity to enable patient to pe rform ADL's. OT Education/Plan Problem List/Assessment Assessment: Decreased Activ Tolerance, Decreased UE Strength, Impaired Coordination, Impaired Funct Balance Discharge Recommendations Plan/Recommendations: Continue POC Treatment Plan/Plan of Care Patient would benefit from OT for education, treatment and training to promote independence in ADL's, mobility, safety and/or upper extremity function for ADL 's. Plan of Care: ADL Retraining, Caregiver Training, Functional Mobility, Group Exercise/Act as Ind, UE Funct Exercise/Act Treatment Duration: Oct 02, 2019 Frequency: At least 5 of 7 days/Wk (IRF) Estimated Hrs Per Day: 1.5 hours per day Agreement: Yes Rehab Potential: Fair Time/GCodes Start Time: 13:00 Stop Time: 13:30 Total Time Billed (hr/min): 30 Billed Treatment Time 1 visit-ADL 1 (10 min) FA 1 (20 min) LUBA MCCARTHY Sep 20, 2019 14:02 POS
--- NOTE | 2019-09-20 14:28 | NUR ---
Met with Odalys to discuss acute rehab care criteria and participation requirements relative to patient's overall ability to tolerate. Reviewed that two Rx were discontinued yesterday that family believed influenced patient overall alertness and abilities. Discussed patient progress with therapist who worked with him this day, indications were "good progress" and that he presented with improvement overall from yesterday. Updated Dye Can Operator, Referral Agent, Clinical Liaison and all agreed to a reassessment of patient Tuesday. SNF was discussed with family, answered their questions to their satisfaction. Provided Medicare Compare information for facilities in their service area and encouraged them to tour/explore in case this care plan was needed. [facility] referral has been considered as an alternate plan, to be determined.
[2019-09-20 16:21] VITALS: BP 143/80
[2019-09-21 05:45] VITALS: BP 109/72
[2019-09-21] MEDS: VITAMIN D3 1,000 UNITS (CHOLECALCIFEROL) TABLET PO SCH (06:14)
[2019-09-21] MEDS: MULTIVIT W/MINERALS TAB (THERAGRAN M) PO SCH (06:14)
--- NOTE | 2019-09-21 08:16 | Physical Therapy Daily Note ---
PT Daily Note-Current Subjective Pt agreeable to PT session. States he slept well last night Pain Numeric Pain Scale: 0-No Pain Appearance Pt supine in bed upon arrival. Min difficulty awakening, did not have hearing aides in. At end of session, pt sitting up in recliner, LE's elevated, with alarm activated, call light, phone and bedside table within reach Mental Status Patient Orientation: Person, Place, Time, Eyes Open, Situation Attachments: Oxygen (2.5 L), Mueller Catheter Transfers SCALE: Activities may be completed with or without assistive devices. 5-Eqhqhwjlzr-xhzbwdo completes the activity by him/herself with no assistance from a helper. 5-Set-up or Clean-up Assistance-helper sets up or cleans up; patient completes activity. [place] assists only prior to or following the activity. 4-Supervision or Touching Assistance-helper provides verbal cues and/or touching/steadying and/or contact guard assistance as patient completes activity. Assistance may be provided throughout the activity or intermittently. 3-Partial/Moderate Assistance-helper does LESS THAN HALF the effort. [place] lifts, holds or supports trunk or limbs, but provides less than half the effort. 2-Substantial/Maximal Assistance-helper does MORE THAN HALF the effort. [place] lifts or holds trunk or limbs and provides more than half the effort. 9-Idzigvaax-omesga does ALL the effort. Patient does none of the effort to complete the activity. Or, the assistance of 2 or more helpers is required for the patient to complete the activity. If activity was not attempted, code reason: 7-Patient Refused. 9-Not Applicable-not attempted and the patient did not perform the activity before the current illness, exacerbation or injury. 10-Not Attempted due to Environmental Limitations-(lack of equipment, weather restraints, etc.). 88-Not Attempted due to Medical Conditions or Safety Concerns. Lying to Sitting/Side of Bed(Q: 4 Sit to Stand (QC): 4 Chair/Peq-xq-Yihrs Xfer(QC): 4 min instruction required for safety and hand placement during sit/stand transfers, occasional report of lightheadedness/dizziness after initial stance Gait Training Distance: 5 Gait Assistive Device: FWW min dizziness Exercises Supine Ex: Ankle pumps (50), Heel Slides (20 simultaneously), Scooting (7 with great effort), Straight leg raise (20), Hip abd/add (20 BLE simultaneously) Seated Therapy Exercises: Ankle pumps (183 simultateously with knees extended), Sit to stand (5 consecutive, 8 total throughout tx session), Long arc quads (20), Chair press-ups (10 x2), Hip flexion (x20 alt LE's), Hip abd/add (BLE's simultaneously adding extra LAQ's x20) Treatments 135/79 61bpm 94% O2 in bed at rest, 98% O2 with supine ex's, 131/74 68 bpm 96% after supine ex's, 116/79 85 bpm 94% after supine to sit, 93/66 85bpm 94% in standing, 108/74 78 bpm 93% after sitting rest, 112/77 79 bpm 93% after longer sitting rest, 105/71 85 bpm 955 after sit to stand then transferred to recliner and sat, 125/79 80 bpm 92-97% after 1/2 sitting ex's, 107/73 after 2x10 chair pushups, 122/82 81 bpm 93% after 2nd 1/2 of sitting ex's, 105/73 91 bpm 925 after sit to stand, 97/64 92bpm 91% in sitting after 5 consecutive sit to from stands, 101/70 88 95% in sitting after deep breathing and sitting rest, 119/79 79 bpm 95% in recliner with LE's elevated at end of session Assessment Current Status: Fair Progress pt continues with decreasing BP sit to stand recovering with sitting rest. Pt with report of lightheadedness/dizziness during some sit to stand transfers PT Mcfp Goals Mcfp Goals PT Local Sales Manager Goals Time Frame: Oct 12, 2019 Roll Left & Right (QC): 6 Sit to Lying (QC): 6 Lying-Sitting on Side/Bed(QC): 6 Sit to Stand (QC): 6 Chair/Jbf-wd-Pjuvn Xfer(QC): 6 Toilet Transfer (QC): 6 Car Transfer (QC): 6 Does the Patient Walk: Yes Walk 10 feet (QC): 6 Walk 50ft with 2 Turns (QC): 6 Walk 150 ft (QC): 6 Walking 10ft on Uneven Surface: 6 1 Step (curb) (QC): 6 4 Steps (QC): 9 12 Steps (QC): 9 Picking up an Object (QC): 6 Does the Pt use WC or Scooter?: No Type: N/A Type: N/A PT Plan Treatment/Plan Treatment Plan: Continue Plan of Care Treatment Plan: Bed Mobility, Education, Functional Activity Ronit, Functional Strength, Gait, Safety, Therapeutic Exercise, Transfers Treatment Duration: Oct 12, 2019 Frequency: At least 5 of 7 days/Wk (IRF) Estimated Hrs Per Day: 1.5 hours per day Patient and/or Family Agrees t: Yes Safety Risks/Education Patient Education: Gait Training, Transfer Techniques, Safety Issues Teaching Recipient: Patient Teaching Methods: Demonstration, Discussion Response to Teaching: Verbalize Understanding, Return Demonstration, Reinforcement Needed Time/GCodes Time In: 800 Time Out: 900 Total Billed Treatment Time: 60 Total Billed Treatment 1 visit, EX x30 min, FA x30 min JUANJOSE BEATTY PTA Sep 21, 2019 08:16 POS
--- NOTE | 2019-09-21 10:06 | Occupational Ther Daily Note ---
OT Current Status-Daily Note Subjective Pt seen in recliner chair, alert. Pt agreeable to OT tx session, denies pain. Mental Status/Objective Attachments: Mueller Catheter, Oxygen, Telemetry ADL-Treatment Therapy Code Descriptions/Definitions Functional [place] Measure: 0=Not Assessed/NA 4=Minimal Assistance 1=Total Assistance 5=Supervision or Setup 2=Maximal Assistance 6=Modified [place] 3=Moderate Assistance 7=Complete IndependenceSCALE: Activities may be completed with or without assistive devices. 2-Twwbgopteu-xxyalqi completes the activity by him/herself with no assistance from a helper. 5-Set-up or Clean-up Assistance-helper sets up or cleans up; patient completes activity. [place] assists only prior to or following the activity. 4-Supervision or Touching Assistance-helper provides verbal cues and/or touching/steadying and/or contact guard assistance as patient completes activity. Assistance may be provided throughout the activity or intermittently. 3-Partial/Moderate Assistance-helper does LESS THAN HALF the effort. [place] lifts, holds or supports trunk or limbs, but provides less than half the effort. 2-Substantial/Maximal Assistance-helper does MORE THAN HALF the effort. [place] lifts or holds trunk or limbs and provides more than half the effort. 4-Gxthdcmsm-asioiy does ALL the effort. Patient does none of the effort to complete the activity. Or, the assistance of 2 or more helpers is required for the patient to complete the activity. If activity was not attempted, code reason: 7-Patient Refused. 9-Not Applicable-not attempted and the patient did not perform the activity before the current illness, exacerbation or injury. 10-Not Attempted due to Environmental Limitations-(lack of equipment, weather restraints, etc.). 88-Not Attempted due to Medical Conditions or Safety Concerns. Eating (QC): 6 Oral Hygiene (QC): 6 (completes while seated in recliner chair.) Other Treatment Pt agreeable to OT tx session, states he would rather complete theraband ex in recliner than in gym. Pt completes UE theraband exercises with red theraband, completing 15 reps bilaterally of the following exercises to increase strength/ endurance of UE: internal/ external shoulder rotation, shoulder forward flexion, shoulder scaption across midline, triceps and biceps. Pt completes w/out c/o fatigue. Vitals assessed in seated: 93% 02, 84 BPM, 121/75, agrees to standing tolerance activity. Pt stands for 1.5 min with vitals assessed: 91%, 95 BPM, and 107/65; pt denies dizziness/ lightheadedness but requires sit due to fatigue. Pt returns to sit with vitals assessed: 94%, 83 BPM, 124/75. Pt states he must "make it" until February when daughter will have baby. DO comes in during session. Pt completes fine motor camille game with cues for directions and sequencing task. Pt states fatigue at 0945, states he would like to return to bed. Pt agreeable to oral hygiene in chair, completes with IND. Pt sit to stand with CGA to FWW, begins walking toward bed without FWW, requires cues for use. Pt returns to bed with good motor control; bed mob with IND. Pt's lines situated, pt denies repositioning or need for 2nd bed rail up. Pt left supine in bed, call light in reach, all needs met. Education OT Patient Education: Correct positioning, Exercise program, Home exercise program, Rehab process, Safety issues, Transfer techniques Teaching Recipient: Patient Teaching Methods: Demonstration, Discussion Response to Teaching: Verbalize Understanding, Return Demonstration, Reinforcement Needed OT Short Term Goals Short Term Goals Eatin Oral hygiene: 6 Upper body dressin Lower body dressin OT Mcfp Goals Occupational Health And Safety Officer Goals Time Frame: Oct 02, 2019 Eating (QC): 6 (met) Oral Hygiene (QC): 6 (met) Toileting Hygiene (QC): 6 Shower/Bathe Self (QC): 4 Upper Body Dressing (QC): 6 Lower Body Dressing (QC): 6 On/Off Footwear (QC): 6 Additional Goals: 1-Demonstrate ADL Tasks, 2-Verbalize Understanding, 3- ImproveStrength/Ronit 1=Demonstrate adherence to instructed precautions during ADL tasks. 2=Patient will verbalize/demonstrate understanding of assistive devices/modifications for ADL. 3=Patient will improve strength/tolerance for activity to enable patient to perform ADL's. OT Education/Plan Problem List/Assessment Assessment: Decreased Activ Tolerance, Decreased Safety Aware, Dependent Transfers, Impaired Funct Balance, Impaired I ADL's, Impaired Self-Care Skills Discharge Recommendations Plan/Recommendations: Continue POC Treatment Plan/Plan of Care Treatment,Training & Education: Yes Patient would benefit from OT for education, treatment and training to promote independence in ADL's, mobility, safety and/or upper extremity function for ADL's. Plan of Care: ADL Retraining, Caregiver Training, Functional Mobility, Group Exercise/Act as Ind, UE Funct Exercise/Act Treatment Duration: Oct 02, 2019 Frequency: At least 5 of 7 days/Wk (IRF) Estimated Hrs Per Day: 1.5 hours per day Agreement: Yes Rehab Potential: Fair Time/GCodes Start Time: 09:00 Stop Time: 10:00 Total Time Billed (hr/min): 60 Billed Treatment Time 1, ADL (10), EX 3 (50)= 60 ELO BAEZ OTR Sep 21, 2019 10:06 POS
--- NOTE | 2019-09-21 10:28 | Progress Note ---
Subjective Date Seen by a Provider: Sep 21, 2019 Time Seen by a Provider: 09:00 Subjective/Events-last exam PT REPORTS THAT HE IS FEELING BETTER TODAY. HE REPORTS THAT HE DOES FEEL A LITTLE STRONGER TODAY COMPARED TO YESTERDAY. THERAPY STAFF IS REPORTING THAT HE HAS MADE A TREMENDOUS TURN AROUND IN HIS COGN ITION AND ABILITY TO PARTICIPATE COMPARED TO YESTERDAY. SHE STATES THAT MICHAEL HAS FAIRLY GOOD STRENGTH IN HIS UPPER BODY, BUT HIS LOWER BODY HAS SIGNIFICANT WEAKNESS WITH BALANCE NEEDING WORKED UPON MORE AGGRESSIVELY. Review of Systems General: No Chills; Fatigue, Malaise HEENT: No Head Aches Pulmonary: No Dyspnea, No Cough Cardiovascular: No: Chest Pain, Palpitations Gastrointestinal: No: Nausea, Abdominal Pain Genitourinary: No Dysuria Neurological: Weakness; No: Confusion Objective Exam Last Set of Vital Signs Vital Signs Date Time Temp Pulse Resp B/P (MAP) Pulse Ox O2 Delivery O2 Flow Rate FiO2 09/21/19 07:12 Nasal Cannula 2.00 09/21/19 07:00 61 09/21/19 05:45 37.0 18 109/72 (84) 95 Capillary Refill : I&O Intake and Output 09/21/19 00:00 Intake Total 850 ml Output Total 950 ml Balance -100 ml Intake Oral 850 ml Output Urine Total 950 ml General: Alert, Oriented X3, Cooperative, No Acute Distress HEENT: Atraumatic, PERRLA Neck: Supple Lungs: Clear to Auscultation, Normal Air Movement Heart: Regular Rate, Other (WITH KNOWN II/ CONNIE) Abdomen: Normal Bowel Sounds, Soft Skin: No Breakdown Neuro: Cranial Nerves 3-12 NL (COCHLEAR IMPLANT) Psych/Mental Status: Mental Status NL, Mood NL Assessment/Plan Assessment/Plan Assess & Plan/Chief Complaint PARENCHYMAL BLEED VERTIGO WEAKNESS HYPERTENSION DEPRESSION CORONARY ARTERY DISEASE CHRONIC ANTICOAGULATION URINARY RETENTION PARENCHYMAL BLEED - PT WAS TRANSPORTED TO , WATCHED CLOSELY, REPEAT SCANS DID NOT SHOW WORSENING BLEEDING AND HE WAS KEPT IN THE HOSPITAL FOR MONITORING BEFORE TRANSFER BACK TO [facility] FOR INPATIENT REHAB. -THIS IS THE INITIAL CT SCAN WHICH CAUSED HIS TRANSFER FROM [facility] TO - SEE CT SCAN REPORT BELOW: 1. New acute intraparenchymal hemorrhage in the left parieto-occipital region with adjacent edema and mild mass effect. There is also an acute left- sided subdural hematoma measuring up to 5.5 mm in thickness. 2. Re-demonstrated abnormal masslike opacification anterior to the brain stem which may relate to large aneurysm. VERTIGO AND WEAKNESS - IMPROVED FROM ADMISSION - SUPPORTIVE CARE AT THIS TIME, CONTINUE WITH PT/OT WITH GOAL OF MICHAEL BEING DISCHARGED TO HOME IN THE CARE OF HIS FAMILY. HYPERTENSION - CONTINUE WITH HOME REGIMEN OF METOPROLOL, PARAMETERS FOR HOLD OF HIS ARB GIVEN YESTERDAY TO NURSING STAFF. DEPRESSION - PT ON CHRONIC SSRI THERAPY - CONTINUE WITH CURRENT HOME REGIMEN. CORONARY ARTERY DISEASE - DEFER TO CARDIOLOGY CHRONIC ANTICOAGULATION - MONITOR INR SERIALLY - KEEP LEVEL BETWEEN 2 AND 3. URINARY RETENTION - SEVILLA CATHETER PLACED, WILL HAVE PT FOLLOW UP WITH UROLOGIST OUTPATIENT FOR SEVILLA REMOVAL ON DISCHARGE. Clinical Quality Measures DVT/VTE Risk/Contraindication: Risk Factor Score Per Nursin RFS Level Per Nursing on Admit: 2=Moderate DAPHNE BHATT MD Sep 21, 2019 10:28 POS
--- NOTE | 2019-09-21 11:18 | Cardiology Progress Note ---
Subjective Date Seen by Provider: Sep 21, 2019 Time Seen by Provider: 11:16 Subjective/Events-last exam patient is laying down in bed, taking a nap. Denied any chest pain, reporting improvement Review of Systems General: No Chills, No Night Sweats; Fatigue; No Malaise, No Appetite, No Other HEENT: No Head Aches, No Visual Changes, No Eye Pain, No Ear Pain, No Dysphasia, No Sinus Congestion, No Post Nasal Drip, No Sore Throat, No Other Pulmonary: Dyspnea; No Cough, No Pleuritic Chest Pain, No Other Cardiovascular: No: Chest Pain, Palpitations, Orthopnea, Paroxysmal Noc. Dyspnea, Edema, Lt Headedness, Other Objective-Cardiology Exam Last Set of Vital Signs Vital Signs 09/21/19 09/21/19 09/21/19 05:45 07:00 07:12 Temp 37.0 Pulse 61 Resp 18 B/P (MAP) 109/72 (84) Pulse Ox 95 O2 Delivery Nasal Cannula O2 Flow Rate 2.00 Capillary Refill : I&O Intake and Output 09/21/19 00:00 Intake Total 850 ml Output Total 950 ml Balance -100 ml Intake Oral 850 ml Output Urine Total 950 ml General: Alert, Oriented X3, Cooperative, No Acute Distress HEENT: Atraumatic, PERRLA Neck: Supple Lungs: Clear to Auscultation, Normal Air Movement Heart: Regular Rate, Other (WITH KNOWN II/ CONNIE) Abdomen: Normal Bowel Sounds, Soft Extremities: No Clubbing, No Edema Skin: No Breakdown Neuro: Cranial Nerves 3-12 NL (COCHLEAR IMPLANT) Psych/Mental Status: Mental Status NL, Mood NL A/P-Cardiology Admission Diagnosis Acute CVA Intracranial bleed Paroxysmal atrial fibrillation Hypertension Assessment/Plan Status post intracranial bleed, left occipital intraparenchymal and left posterior subdural hemorrhage, was evaluated and treated by neurology, currently recovering and receiving physical therapy and occupational therapy. Managed by primary care team Hypotensive episode, had multiple episode of hypotension while in , family reporting questionable history of hypotension in the pastmust still borderline hypotensive, I will stop Aldactone and continue to monitor Paroxysmal atrial fibrillation, currently off oral anticoagulation due to intracranial bleed. Was maintained on Coumadin. Maintained on amiodarone. continue to monitor Coronary artery disease multiple interventions in the past done by Dr. Pandey reporting history of 10 stents in the past, 5 balloon angioplasties. Reporting last intervention done 5 years ago. Last LHC done January 2018 revealed 50% diag, 30-50% prox RCA and 30-40% ostial RCA. Most recent stress test done January 2019 revealing no ischemia or infarct. CHF, ischemic cardiomyopathy, most recent 2D Echo done March 2019 revealed EF 4 5%, grade 1 diastolic dysfunction, aortic valve sclerosis without stenosis. 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 Follows with neurology in . 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 Weber History of thoracic aortic dissection, treated conservatively in [place] in the past, continue to monitor Labile hypertension with episode of hypotension, losartan discontinued, continue to monitor. Hyperlipidemia, monitor lipids CKD- continue to monitor renal function Elevated LFT's- continue to monitor. Generalized weakness and debility. Clinical Quality Measures DVT/VTE Risk/Contraindication: Risk Factor Score Per Nursin RFS Level Per Nursing on Admit: 2=Moderate GABBY ALCANTAR MD Sep 21, 2019 11:18 POS
[2019-09-21] MEDS: SENNA W/DOCUSATE (SENOKOT S) TABLET PO SCH ×2 (11:28→20:09)
[2019-09-21] MEDS: ALLOPURINOL 100 MG (ZYLOPRIM) TAB PO SCH (11:28)
[2019-09-21] MEDS: DOCUSATE SODIUM 100 MG (COLACE) CAP PO PRN (11:28)
[2019-09-21] MEDS: LORATADINE (CLARITIN) 10 MG TAB PO SCH (11:28)
[2019-09-21] MEDS: rOPINIRole 0.25 MG (REQUIP) TAB PO SCH ×2 (11:28→20:09)
[2019-09-21] MEDS: PANTOPRAZOLE 40 MG (PROTONIX) TAB PO SCH (11:28)
[2019-09-21] MEDS: ASPIRIN E.C. 325 MG (ECOTRIN) TABLET PO SCH (11:28)
[2019-09-21] MEDS: FINASTERIDE (PROSCAR) 5 MG TAB PO SCH (11:29)
[2019-09-21] MEDS: AMIODARONE 200 MG (CORDARONE) TAB PO SCH ×2 (11:29→20:09)
--- NOTE | 2019-09-21 11:35 | Speech Therapy Daily Note ---
Speech Daily Progress Note Subjective Date Seen by Provider: Sep 21, 2019 Time Seen by Provider: 00:30 Patient was resting in his bed when I entered his room. He is much more alert today. Objective Patient completed a series of general information questions with 80% given 10% cues. Assessment Assessment Current Status: Good Progress Treatment Plan Continue Plan of Care Speech Short Term Goals Short Term Goals Short Term Goals 1) The patient will complete memory tasks related to his daily needs at 90% or greater with minimal cues. 2) The patient will complete problem solving tasks related to his daily needs at 90% or greater with minimal cues. 3) The patient will complete safety awareness tasks related to his daily needs at 90% or greater with minimal cues. 4) The patient will tolerate least restrictive diet without s/s of aspiration at 90%. 5) The patient will utilize compensatory strategies for safe oral intake at 90% with minimal cues. Speech Transmission Superintendent Goals Skilled Nursing Goals Patient will improve cognitive-communication abilities in order to complete daily tasks with minimal assist. Patient will maintain adequate nutrition/hydration via safe effective swallow function. Speech-Plan Patient/Family Goals Patient/Family Goals: Patient plans on returning to his home upon discharge from rehab. Treatment Plan Speech Therapy Treatment Plan: Continue Plan of Care Patient stated he needs to be home instead of in the hospital several times during our session today. Treatment Duration: Sep 28, 2019 Frequency: 5 times per week Estimated Hrs Per Day: .5 hour per day Rehab Potential: Fair Barriers to Learning: Patient has cognitive deficits Pt/Family Agrees to Plan: Yes Safety Risks/Education Teaching Recipient: Patient Teaching Methods: Demonstration, Discussion Response to Teaching: Verbalize Understanding, Return Demonstration Education Topics Provided: Continued safety and communication of needs Time Speech Therapy Time In: 11:00 Speech Therapy Time Out: 11:30 Total Billed Time: 30 Billed Treatment Time 1YUDITH BETH[address] ST Sep 21, 2019 11:35 POS
--- NOTE | 2019-09-21 12:53 | PM&R Progress Note ---
Subjective HPI/CC On Admission Date Seen by Provider: Sep 21, 2019 Time Seen by Provider: 11:30 Subjective/Events-last exam BP still precludes and intensive therapy Pt appears to be less drowsy Pt still a bit confused when he is constantly asking me when he can go home Pt really will require a group home facility and skilled upon discharge Will hold off until Tuesday to reassess Overall doing pretty well Bowels are moving Will monitor closely Checked meds and labs Reviewed therapy notes Conferred with surgical forceps fabricator of Systems General: Fatigue Neurological: Confusion Objective Exam Vital Signs Vital Signs Date Time Temp Pulse Resp B/P (MAP) Pulse Ox O2 Delivery O2 Flow Rate FiO2 09/22/19 07:00 60 09/22/19 05:31 37.9 19 118/70 (86) 94 NIV CPAP 3.00 Capillary Refill : General Appearance: No Apparent Distress, WD/WN, Chronically ill HEENT: PERRL/EOMI, TMs Normal, Normal ENT Inspection, Pharynx Normal, Moist Mucous Membranes Neck: Full Range of Motion, Normal Inspection, Non Tender, Supple, Carotid Bruit Respiratory: Chest Non Tender, Lungs Clear, Normal Breath Sounds, No Accessory Muscle Use, No Respiratory Distress Cardiovascular: Regular Rate, Rhythm, No Gallop, No JVD, Normal Peripheral Pulses, Systolic Murmur, Gallop/S3 Gastrointestinal: Normal Bowel Sounds, No Organomegaly, No Pulsatile Mass, Non Tender, Soft Back: Normal Inspection, No CVA Tenderness, No Vertebral Tenderness Extremity: Normal Capillary Refill, Normal Inspection, Normal Range of Motion, Non Tender, No Calf Tenderness, No Pedal Edema Neurologic/Psychiatric: Alert, net developer architect II-XII Norm as Tested, Depressed Affect, Disoriented, Motor Weakness (severe 4/5 legs and arms) Skin: Normal Color, Warm/Dry Lymphatic: No Adenopathy Results/Procedures Lab Laboratory Tests 09/22/19 05:05 Patient resulted labs reviewed. FIM Transfers Therapy Code Descriptions/Definitions Functional [place] Measure: 0=Not Assessed/NA 4=Minimal Assistance 1=Total Assistance 5=Supervision or Setup 2=Maximal Assistance 6=Modified [place] 3=Moderate Assistance 7=Complete IndependenceSCALE: Activities may be completed with or without assistive devices. 8-Tnkmzthcic-hnppzgq completes the activity by him/herself with no assistance from a helper. 5-Set-up or Clean-up Assistance-helper sets up or cleans up; patient completes activity. [place] assists only prior to or following the activity. 4-Supervision or Touching Assistance-helper provides verbal cues and/or touching/steadying and/or contact guard assistance as patient completes activity. Assistance may be provided throughout the activity or intermittently. 3-Partial/Moderate Assistance-helper does LESS THAN HALF the effort. [place] lift s, holds or supports trunk or limbs, but provides less than half the effort. 2-Substantial/Maximal Assistance-helper does MORE THAN HALF the effort. [place] lifts or holds trunk or limbs and provides more than half the effort. 8-Vmrfbqvvz-bcgbsp does ALL the effort. Patient does none of the effort to complete the activity. Or, the assistance of 2 or more helpers is required for the patient to complete the activity. If activity was not attempted, code reason: 7-Patient Refused. 9-Not Applicable-not attempted and the patient did not perform the activity before the current illness, exacerbation or injury. 10-Not Attempted due to Environmental Limitations-(lack of equipment, weather restraints, etc.). 88-Not Attempted due to Medical Conditions or Safety Concerns. Roll Left to Right (QC): 4 Sit to Lying (QC): 4 Sit to Stand (QC): 4 Chair/Mmc-bw-Rfpxw Xfer(QC): 4 Car Transfer (QC): 3 Gait Training Does the Patient Walk?: Yes Distance: 5 Walk 10 feet (QC): 5 Walk 50 ft with 2 Turns(QC): 3 (modA) Walk 150 ft (QC): 88 Walking 10ft/uneven surface-QC: 3 Gait Persons Needed: 1 Gait Assistive Device: FWW Wheelchair Training Does the Pt Use a Wheelchair?: No Wheel 50 ft with 2 turns (QC): 9 Wheel 150 ft (QC): 9 Stair Training 1 Step (curb) (QC): 3 4 Steps (QC): 88 12 Steps (QC): 9 Balance Picking up an Object (QC): 6 (from sitting position) ADL-Treatment Eating (QC): 6 Oral Hygiene (QC): 6 (completes while seated in recliner chair.) Shower/Bathe Self (QC): 4 Upper Body Dressing (QC): 5 Lower Body Dressing (QC): 3 (Footwear (QC) 3) On/Off Footwear (QC): 6 Toileting Hygiene (QC): 2 (Pt TD with bottom hygiene on this date due to c/o fatigue and limited strength.) Toilet Transfer (QC): 7 Assessment/Plan Assessment and Plan Assess & Plan/Chief Complaint Assessment: Intraparenchymal hematoma Falls Confusion CRI NPH DISPENSING AUDIOLOGIST shunts Extensive CAD AF Plan: Eval NH options for slower recovery if he fails this program over the weekend IRF protocol in meantime Monitor orthostasis Prognosis guarded at this time (1) Intraparenchymal hematoma of brain (2) Orthostasis (3) COPD (chronic obstructive pulmonary disease) (4) Atrial fibrillation (5) CAD (coronary artery disease) (6) NPH (normal pressure hydrocephalus) (7) Renal insufficiency (8) Vertigo (9) Weakness (10) PVD (peripheral vascular disease) (11) Cognitive deficits (12) SYL (obstructive sleep apnea) (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 (14) Brain aneurysm (15) Ischemic cardiomyopathy (16) Gastric reflux (17) Renal lithiasis (18) Intracranial shunt (19) Hx of CABG (20) S/P AAA repair SOLO MENDENHALL DO Sep 21, 2019 12:53 POS
--- NOTE | 2019-09-21 13:28 | Occupational Ther Daily Note ---
OT Current Status-Daily Note Subjective Pt seen in bed, no c/o pain. Pt alert. Agreeable to sponge bath per 's request. Mental Status/Objective Attachments: Mueller Catheter, Oxygen, Telemetry ADL-Treatment Therapy Code Descriptions/Definitions Functional [place] Measure: 0=Not Assessed/NA 4=Minimal Assistance 1=Total Assistance 5=Supervision or Setup 2=Maximal Assistance 6=Modified [place] 3=Moderate Assistance 7=Complete IndependenceSCALE: Activities may be completed with or without assistive devices. 9-Snlblrqncg-pgnqjly completes the activity by him/herself with no assistance from a helper. 5-Set-up or Clean-up Assistance-helper sets up or cleans up; patient completes activity. [place] assists only prior to or following the activity. 4-Supervision or Touching Assistance-helper provides verbal cues and/or touching /steadying and/or contact guard assistance as patient completes activity. Assistance may be provided throughout the activity or intermittently. 3-Partial/Moderate Assistance-helper does LESS THAN HALF the effort. [place] lifts, holds or supports trunk or limbs, but provides less than half the effort. 2-Substantial/Maximal Assistance-helper does MORE THAN HALF the effort. [place] lifts or holds trunk or limbs and provides more than half the effort. 3-Wqfbjmbiq-ucmirb does ALL the effort. Patient does none of the effort to complete the activity. Or, the assistance of 2 or more helpers is required for the patient to complete the activity. If activity was not attempted, code reason: 7-Patient Refused. 9-Not Applicable-not attempted and the patient did not perform the activity before the current illness, exacerbation or injury. 10-Not Attempted due to Environmental Limitations-(lack of equipment, weather restraints, etc.). 88-Not Attempted due to Medical Conditions or Safety Concerns. Eating (QC): 6 Oral Hygiene (QC): 7 Shower/Bathe Self (QC): 4 (Pt completes all areas (excluding back which he does not get at home), with CGA in stance during bottom hygiene.) Upper Body Dressing (QC): 5 (s/u) Lower Body Dressing (QC): 4 (Prep for threading catheter; pt sit to stand at FWW with CGA, pull pants past hips with CGA) on/ off footwear: 6 edge of chair. Other Treatment Pt completes bed mob with IND, sit to stand with CGA. Pt bathes UB IND EOB, sit to stand and moves to recliner chair. Completes rest of bathing tasks in chair. Pt s/u for lunch post-session, call light in reach, all needs met, present. Education OT Patient Education: Correct positioning, Progress toward Goal/Update tx plan, Purpose of tx/functional activities, Transfer techniques Teaching Recipient: Patient Teaching Methods: Demonstration, Discussion Response to Teaching: Verbalize Understanding, Return Demonstration OT Short Term Goals Short Term Goals Eatin Oral hygiene: 6 Upper body dressin Lower body dressin (met) OT Mcfp Goals Mcfp Goals Time Frame: Oct 02, 2019 Eating (QC): 6 (met) Oral Hygiene (QC): 6 (met) Toileting Hygiene (QC): 6 Shower/Bathe Self (QC): 4 Upper Body Dressing (QC): 6 Lower Body Dressing (QC): 6 On/Off Footwear (QC): 6 Additional Goals: 1-Demonstrate ADL Tasks, 2-Verbalize Understanding, 3- ImproveStrength/Ronit 1=Demonstrate adherence to instructed precautions during ADL tasks. 2=Patient will verbalize/demonstrate understanding of assistive devices /modifications for ADL. 3=Patient will improve strength/tolerance for activity to enable patient to perform ADL's. OT Education/Plan Problem List/Assessment Assessment: Decreased Activ Tolerance, Dependent Transfers, Impaired Funct Balance, Impaired I ADL's, Impaired Self-Care Skills Discharge Recommendations Plan/Recommendations: Continue POC Treatment Plan/Plan of Care Treatment,Training & Education: Yes Patient would benefit from OT for education, treatment and training to promote independence in ADL's, mobility, safety and/or upper extremity function for ADL's. Plan of Care: ADL Retraining, Caregiver Training, Functional Mobility, Group Exercise/Act as Ind, UE Funct Exercise/Act Treatment Duration: Oct 02, 2019 Frequency: At least 5 of 7 days/Wk (IRF) Estimated Hrs Per Day: 1.5 hours per day Agreement: Yes Rehab Potential: Fair Time/GCodes Start Time: 11:50 Stop Time: 12:05 Total Time Billed (hr/min): 15 Billed Treatment Time 1, ADL (15) ELO BAEZ OTR Sep 21, 2019 13:28 POS
--- NOTE | 2019-09-21 14:29 | Therapy Group Daily Note ---
Therapy Daily Group Note Patient Education Topic Other List Below (proper handwashing and prevention of communicable disease, orientaton to ARU, memory activity and strategies) Exercises LE Seated Exercise, UE Exercise Session Ratio (pt:therapist): 4:1 Goal of Session: Education on ARU Expectations, Memory Strategies, Other (list) (handwashing and prevention of communicable disease) Goal Met for this Session: Yes Pt Benefit of Group: Contributions to Others, Increased Functional Strength, Socialization Other/Notes Pt. participated in group PT OT session. Pt. came and went via w/c and assist for O2 3L. Pts. introduced selves and shared their favorite Dede aguilarbeverly . Pts were educated about the ARU practices and requirements. Education focused on proper handwashing and how to prevent communicable disease. Pts. enjoyed participating in a game requiring bag toss to images on floor and interacting to remember the matching image on opposing area of floor. Pt. to room with assist to bed , rose at hand and needs met Start Time: 13:00 Stop Time: 14:15 Total Billed Treatment Time: 75 Total Billed Treatment 1,GRP NEDRA ALVARADO E BUSINESS SPECIALIST Sep 21, 2019 14:29 POS
[2019-09-21 16:09] VITALS: BP 112/77
[2019-09-21 17:23] VITALS: BP 131/78
[2019-09-21] MEDS: POLYETHYLENE GLYCOL 17 GM (MIRALAX) PACK PO SCH ×2 (19:09→20:08)
[2019-09-21] MEDS: LACTULOSE SYRUP 10GM/15ML (ENULOSE) 30ML UDC PO PRN (20:09)
[2019-09-22] MEDS: MULTIVIT W/MINERALS TAB (THERAGRAN M) PO SCH (05:10)
[2019-09-22] MEDS: VITAMIN D3 1,000 UNITS (CHOLECALCIFEROL) TABLET PO SCH (05:10)
[2019-09-22 05:28] LABS: HEMOGLOBIN 10.6 G/DL (13.3-17.7); MEAN PLATELET VOLUME 9.5 FL (7.4-10.4); RED CELL DISTRIBUTION WIDTH 16.4 % (10.0-14.5); WHITE BLOOD COUNT 8.2 10^3/uL (4.3-11.0)
[2019-09-22 05:31] VITALS: BP_SYST 118; BP_SYST 153; BP_DIAS 70; BP_DIAS 81
[2019-09-22 05:41] LABS: ALBUMIN 3.3 GM/DL (3.2-4.5); BILIRUBIN,TOTAL 0.8 MG/DL (0.1-1.0); CALCIUM 8.6 MG/DL (8.5-10.1); CREATININE SERUM 1.39 MG/DL (0.60-1.30); TOTAL PROTEIN 6.3 GM/DL (6.4-8.2)
[2019-09-22 08:00] VITALS: BP_SYST 113; BP_SYST 122; BP_SYST 146; BP_DIAS 74; BP_DIAS 79
--- NOTE | 2019-09-22 08:33 | Physical Therapy Daily Note ---
PT Daily Note-Current Subjective Pt agreeable to PT session. "I'm still asleep" Pain Numeric Pain Scale: 0-No Pain Appearance Pt sitting up in recliner before and after tx session, call light, phone and bedside table within reach, alarm activated Mental Status Patient Orientation: Person, Place, Time, Eyes Open, Situation Attachments: Oxygen (2.5 L) Transfers SCALE: Activities may be completed with or without assistive devices. 3-Uhywjtcpor-htuomrj completes the activity by him/herself with no assistance from a helper. 5-Set-up or Clean-up Assistance-helper sets up or cleans up; patient completes activity. [place] assists only prior to or following the activity. 4-Supervision or Touching Assistance-helper provides verbal cues and/or touching/steadying and/or contact guard assistance as patient completes activity. Assistance may be provided throughout the activity or intermittently. 3-Partial/Moderate Assistance-helper does LESS THAN HALF the effort. [place] lifts, holds or supports trunk or limbs, but provides less than half the effort. 2-Substantial/Maximal Assistance-helper does MORE THAN HALF the effort. [place] lifts or holds trunk or limbs and provides more than half the effort. 5-Gqapcnufp-ltpfxy does ALL the effort. Patient does none of the effort to complete the activity. Or, the assistance of 2 or more helpers is required for the patient to complete the activity. If activity was not attempted, code reason: 7-Patient Refused. 9-Not Applicable-not attempted and the patient did not perform the activity before the current illness, exacerbation or injury. 10-Not Attempted due to Environmental Limitations-(lack of equipment, weather restraints, etc.). 88-Not Attempted due to Medical Conditions or Safety Concerns. Sit to Stand (QC): 4 Exercises Supine Ex: Ankle pumps (50), Heel Slides (10), Knee to chest (20), Straight leg raise (20), Hip abd/add (50) Seated Therapy Exercises: Sit to stand (10) Assessment pt follows instruction and performs LE ex's well. Pt tends to try to perform ex's very quickly and requires inst to slow down and perform throughout entire ROM PT Recruitment Officer Goals Alf Goals PT Recruitment Officer Goals Time Frame: Oct 12, 2019 Roll Left & Right (QC): 6 Sit to Lying (QC): 6 Lying-Sitting on Side/Bed(QC): 6 Sit to Stand (QC): 6 Chair/Cow-tb-Liifx Xfer(QC): 6 Toilet Transfer (QC): 6 Car Transfer (QC): 6 Does the Patient Walk: Yes Walk 10 feet (QC): 6 Walk 50ft with 2 Turns (QC): 6 Walk 150 ft (QC): 6 Walking 10ft on Uneven Surface: 6 1 Step (curb) (QC): 6 4 Steps (QC): 9 12 Steps (QC): 9 Picking up an Object (QC): 6 Does the Pt use WC or Scooter?: No Type: N/A Type: N/A PT Plan Treatment/Plan Treatment Plan: Continue Plan of Care Treatment Plan: Bed Mobility, Education, Functional Activity Ronit, Functional Strength, Gait, Safety, Therapeutic Exercise, Transfers Treatment Duration: Oct 12, 2019 Frequency: At least 5 of 7 days/Wk (IRF) Estimated Hrs Per Day: 1.5 hours per day Patient and/or Family Agrees t: Yes Safety Risks/Education Patient Education: Transfer Techniques, Safety Issues Teaching Recipient: Patient Teaching Methods: Discussion Response to Teaching: Verbalize Understanding Time/GCodes Time In: 827 Time Out: 842 Total Billed Treatment Time: 15 Total Billed Treatment 1 visit, EX x15 min JUANJOSE BEATTY PTA Sep 22, 2019 08:33 POS
[2019-09-22] MEDS: PANTOPRAZOLE 40 MG (PROTONIX) TAB PO SCH (09:29)
[2019-09-22] MEDS: ASPIRIN E.C. 325 MG (ECOTRIN) TABLET PO SCH (09:29)
[2019-09-22] MEDS: AMIODARONE 200 MG (CORDARONE) TAB PO SCH ×2 (09:29→20:03)
[2019-09-22] MEDS: rOPINIRole 0.25 MG (REQUIP) TAB PO SCH ×2 (09:29→20:03)
[2019-09-22] MEDS: ALLOPURINOL 100 MG (ZYLOPRIM) TAB PO SCH (09:31)
[2019-09-22] MEDS: SENNA W/DOCUSATE (SENOKOT S) TABLET PO SCH ×2 (09:32→20:03)
[2019-09-22] MEDS: POLYETHYLENE GLYCOL 17 GM (MIRALAX) PACK PO SCH ×2 (09:32→20:14)
[2019-09-22] MEDS: LORATADINE (CLARITIN) 10 MG TAB PO SCH (09:33)
[2019-09-22] MEDS: FINASTERIDE (PROSCAR) 5 MG TAB PO SCH (09:33)
--- NOTE | 2019-09-22 12:12 | PM&R Progress Note ---
Subjective HPI/CC On Admission Date Seen by Provider: Sep 22, 2019 Time Seen by Provider: 10:00 Subjective/Events-last exam Temperature of 100.2 Urine obtained did not appear to be a major source but will wait for culture Bowel movement was 5 days ago so initiate a suppository and/or enema to get that done Orthostasis continues to restrict therapy Denies any significant pain Patient just appears to be very fatigued and tired all the time Will monitor closely Checked meds and labs Reviewed therapy notes Conferred with flag signalman of Systems General: Fatigue Gastrointestinal: Constipation Genitourinary: Retention Neurological: Confusion Objective Exam Vital Signs Vital Signs Date Time Temp Pulse Resp B/P (MAP) Pulse Ox O2 Delivery O2 Flow Rate FiO2 09/23/19 13:00 68 09/23/19 09:00 Nasal Cannula 2.00 09/23/19 09:00 128/73 (91) 98 09/23/19 05:44 36.7 16 Capillary Refill : General Appearance: No Apparent Distress, WD/WN, Chronically ill HEENT: PERRL/EOMI, TMs Normal, Normal ENT Inspection, Pharynx Normal, Moist Mucous Membranes Neck: Full Range of Motion, Normal Inspection, Non Tender, Supple, Carotid Bruit Respiratory: Chest Non Tender, Lungs Clear, Normal Breath Sounds, No Accessory Muscle Use, No Respiratory Distress Cardiovascular: Regular Rate, Rhythm, No Gallop, No JVD, Normal Peripheral Pulses, Systolic Murmur, Gallop/S3 Gastrointestinal: Normal Bowel Sounds, No Organomegaly, No Pulsatile Mass, Non Tender, Soft Back: Normal Inspection, No CVA Tenderness, No Vertebral Tenderness Extremity: Normal Capillary Refill, Normal Inspection, Normal Range of Motion, Non Tender, No Calf Tenderness, No Pedal Edema Neurologic/Psychiatric: Alert, cotton ball bagger II-XII Norm as Tested, Depressed Affect, Disoriented, Motor Weakness (severe 4/5 legs and arms) Skin: Normal Color, Warm/Dry Lymphatic: No Adenopathy Results/Procedures Lab Patient resulted labs reviewed. FIM Transfers Therapy Code Descriptions/Definitions Functional [place] Measure: 0=Not Assessed/NA 4=Minimal Assistance 1=Total Assistance 5=Supervision or Setup 2=Maximal Assistance 6=Modified [place] 3=Moderate Assistance 7=Complete IndependenceSCALE: Activities may be completed with or without assistive devices. 2-Kypehhwmnl-foemwme completes the activity by him/herself with no assistance from a helper. 5-Set-up or Clean-up Assistance-helper sets up or cleans up; patient completes activity. [place] assists only prior to or following the activity. 4-Supervision or Touching Assistance-helper provides verbal cues and/or touching/steadying and/or contact guard assistance as patient completes activity. Assistance may be provided throughout the activity or intermittently. 3-Partial/Moderate Assistance-helper does LESS THAN HALF the effort. [place] lifts, holds or supports trunk or limbs, but provides less than half the effort. 2-Substantial/Maximal Assistance-helper does MORE THAN HALF the effort. [place] lifts or holds trunk or limbs and provides more than half the effort. 7-Ehcqjobzt-zahksk does ALL the effort. Patient does none of the effort to complete the activity. Or, the assistance of 2 or more helpers is required for the patient to complete the activity. If activity was not attempted, code reason: 7-Patient Refused. 9-Not Applicable-not attempted and the patient did not perform the activity before the current illness, exacerbation or injury. 10-Not Attempted due to Environmental Limitations-(lack of equipment, weather restraints, etc.). 88-Not Attempted due to Medical Conditions or Safety Concerns. Roll Left to Right (QC): 4 Sit to Lying (QC): 4 Sit to Stand (QC): 4 Chair/Mzw-wl-Atgxj Xfer(QC): 4 Car Transfer (QC): 3 Gait Training Does the Patient Walk?: Yes Distance: 5 Walk 10 feet (QC): 5 Walk 50 ft with 2 Turns(QC): 3 (modA) Walk 150 ft (QC): 88 Walking 10ft/uneven surface-QC: 3 Gait Persons Needed: 1 Gait Assistive Device: FWW Wheelchair Training Does the Pt Use a Wheelchair?: No Wheel 50 ft with 2 turns (QC): 9 Wheel 150 ft (QC): 9 Stair Training 1 Step (curb) (QC): 3 4 Steps (QC): 88 12 Steps (QC): 9 Balance Picking up an Object (QC): 6 (from sitting position) ADL-Treatment Eating (QC): 6 Oral Hygiene (QC): 7 Shower/Bathe Self (QC): 4 (Pt completes all areas (excluding back which he does not get at home), with CGA in stance during bottom hygiene.) Upper Body Dressing (QC): 5 (s/u) Lower Body Dressing (QC): 4 (Prep for threading catheter; pt sit to stand at FWW with CGA, pull pants past hips with CGA) On/Off Footwear (QC): 6 Toileting Hygiene (QC): 2 (Pt TD with bottom hygiene on this date due to c/o fatigue and limited strength.) Toilet Transfer (QC): 7 Assessment/Plan Assessment and Plan Assess & Plan/Chief Complaint Assessment: Intraparenchymal hematoma Falls Confusion 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 Extensive CAD AF Isolated low grade fever-sent UA to lab Plan: Eval NH options for slower recovery if he fails this program over the weekend IRF protocol in meantime Monitor orthostasis Prognosis guarded at this time Monitor low grade fever (1) Intraparenchymal hematoma of brain (2) Orthostasis (3) COPD (chronic obstructive pulmonary disease) (4) Atrial fibrillation (5) CAD (coronary artery disease) (6) NPH (normal pressure hydrocephalus) (7) Renal insufficiency (8) Vertigo (9) Weakness (10) PVD (peripheral vascular disease) (11) Cognitive deficits (12) SYL (obstructive sleep apnea) (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
[2019-09-22 14:49] LABS: BILIRUBIN,URINE 1+ (NEGATIVE); CLARITY,URINE SL CLOUDY; COLOR,URINE AMBER; GLUCOSE, URINE (UA) NEGATIVE (NEGATIVE); KETONES,URINE TRACE (NEGATIVE); LEUKOCYTE ESTERASE ,URINE 2+ (NEGATIVE); NITRITE,URINE NEGATIVE (NEGATIVE); PH,URINE 5.5 (5-9); PROTEIN,URINE TRACE (NEGATIVE)
[2019-09-22 15:06] LABS: BACTERIA,URINE MODERATE /HPF
--- NOTE | 2019-09-22 16:00 | NUR ---
Informed daughter that all food brought in by family needs to be monitored by nurse before giving to pt , due to dyphagia two diet.
[2019-09-22 16:23] VITALS: BP 126/84
--- NOTE | 2019-09-22 16:30 | NUR ---
Dr Fernandez notified of UA Results. No new orders given
[2019-09-22] MEDS ORDERED: CATHETER FLUSH 10 ML SYR IV PRN (17:00)
--- NOTE | 2019-09-22 18:00 | NUR ---
No results from Dulcolax suppository. SS enema (300cc) with good results.
[2019-09-22 18:14] VITALS: BP 126/84
[2019-09-22] MEDS: CATHETER FLUSH 10 ML SYR IV SCH (20:04)
[2019-09-23 05:44] VITALS: BP 135/81
[2019-09-23] MEDS: VITAMIN D3 1,000 UNITS (CHOLECALCIFEROL) TABLET PO SCH (06:03)
[2019-09-23] MEDS: CATHETER FLUSH 10 ML SYR IV SCH ×3 (06:03→19:58)
[2019-09-23] MEDS: MULTIVIT W/MINERALS TAB (THERAGRAN M) PO SCH (06:03)
--- NOTE | 2019-09-23 08:00 | NUR ---
Mueller in place to drainage/patent with tamie clear urine. Pt foreskin at head of penis is swollen/red/painful. Althea care done/pt up to chair to eat breakfast. pt tolerated well. pt ate 25% of breakfast. pt states he is not eat a big breakfast usually.
[2019-09-23] MEDS: ALLOPURINOL 100 MG (ZYLOPRIM) TAB PO SCH (08:47)
[2019-09-23] MEDS: LORATADINE (CLARITIN) 10 MG TAB PO SCH (08:47)
[2019-09-23] MEDS: ASPIRIN E.C. 325 MG (ECOTRIN) TABLET PO SCH (08:47)
[2019-09-23] MEDS: rOPINIRole 0.25 MG (REQUIP) TAB PO SCH ×2 (08:47→19:52)
[2019-09-23] MEDS: FINASTERIDE (PROSCAR) 5 MG TAB PO SCH (08:49)
[2019-09-23] MEDS: SENNA W/DOCUSATE (SENOKOT S) TABLET PO SCH ×2 (08:49→19:52)
[2019-09-23] MEDS: PANTOPRAZOLE 40 MG (PROTONIX) TAB PO SCH (08:49)
[2019-09-23] MEDS: AMIODARONE 200 MG (CORDARONE) TAB PO SCH ×2 (08:49→19:52)
[2019-09-23] MEDS: POLYETHYLENE GLYCOL 17 GM (MIRALAX) PACK PO SCH ×2 (08:51→19:30)
[2019-09-23 09:00] VITALS: BP 128/73
--- NOTE | 2019-09-23 09:30 | Cardiology Progress Note ---
Subjective Date Seen by Provider: Sep 23, 2019 Time Seen by Provider: 09:28 Subjective/Events-last exam Patient is sitting in a chair, feeling better. No new complaint Review of Systems General: No Chills, No Night Sweats; Fatigue; No Malaise, No Appetite, No Other HEENT: No Head Aches, No Visual Changes, No Eye Pain, No Ear Pain, No Dysphasia, No Sinus Congestion, No Post Nasal Drip, No Sore Throat, No Other Pulmonary: No Dyspnea, No Cough, No Pleuritic Chest Pain, No Other Cardiovascular: No: Chest Pain, Palpitations, Orthopnea, Paroxysmal Noc. Dyspnea, Edema, Lt Headedness, Other Objective-Cardiology Exam Last Set of Vital Signs Vital Signs 09/23/19 09/23/19 09/23/19 05:44 07:00 08:22 Temp 36.7 Pulse 62 Resp 16 B/P (MAP) 135/81 (99) Pulse Ox 96 O2 Delivery Nasal Cannula O2 Flow Rate 2.00 Capillary Refill : I&O Intake and Output 09/23/19 00:00 Intake Total 845 ml Output Total 775 ml Balance 70 ml Intake Oral 845 ml Output Urine Total 775 ml # Bowel Movements 2 General: Alert, Oriented X3, Cooperative, No Acute Distress HEENT: Atraumatic, PERRLA Neck: Supple Lungs: Clear to Auscultation, Normal Air Movement Heart: Regular Rate, Other (WITH KNOWN II/ CONNIE) Abdomen: Normal Bowel Sounds, Soft Extremities: No Clubbing, No Edema Skin: No Breakdown Neuro: Cranial Nerves 3-12 NL (COCHLEAR IMPLANT) Psych/Mental Status: Mental Status NL, Mood NL Results Lab A/P-Cardiology Admission Diagnosis Acute CVA Intracranial bleed Paroxysmal atrial fibrillation Hypertension Assessment/Plan Status post intracranial bleed, left occipital intraparenchymal and left posterior subdural hemorrhage, was evaluated and treated by neurology, currently recovering and receiving physical therapy and occupational therapy. Managed by primary care team Hypotensive episode, had multiple episode of hypotension while in , family reporting questionable history of hypotension in the past, better at this time. Continue to monitor Paroxysmal atrial fibrillation, currently off oral anticoagulation due to intracranial bleed. Was maintained on Coumadin. Maintained on amiodarone. continue to monitor Coronary artery disease multiple interventions in the past done by Dr. Pandey reporting history of 10 stents in the past, 5 balloon angioplasties. Reporting last intervention done 5 years ago. Last LHC done January 2018 revealed 50% diag, 30-50% prox RCA and 30-40% ostial RCA. Most recent stress test done January 2019 revealing no ischemia or infarct. CHF, ischemic cardiomyopathy, most recent 2D Echo done March 2019 revealed EF 45%, grade 1 diastolic dysfunction, aortic valve sclerosis without stenosis. 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 Follows with neurology in . 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 Weber History of thoracic aortic dissection, treated conservatively in [place] in the past, continue to monitor Labile hypertension with episode of hypotension, losartan discontinued, continue to monitor. Hyperlipidemia, monitor lipids CKD- continue to monitor renal function Elevated LFT's- continue to monitor. Generalized weakness and debility. Clinical Quality Measures DVT/VTE Risk/Contraindication: Risk Factor Score Per Nursin RFS Level Per Nursing on Admit: 2=Moderate GABBY ALCANTAR MD Sep 23, 2019 9:30 am POS
--- NOTE | 2019-09-23 12:16 | NUR ---
Consult for Dr Gamble for pt/Dr Gamble here to see pt. Penis was examined. Pt foreskin pulled down into place. Orders given.
--- NOTE | 2019-09-23 12:17 | PM&R Progress Note ---
Subjective HPI/CC On Admission Date Seen by Provider: Sep 23, 2019 Time Seen by Provider: 10:30 Subjective/Events-last exam Having issues with his foreskin that is edematous and catheter is in place Urology will be consulted and he has assessed the patient after I saw him today Daughter at the bedside Urine is now clear No more fever Oxygen will be weaned from 3 L to 2 L now Orthostasis continues to be an issue but improved Bowels moved after enema after suppository did not work INR check in the morning per cardiology Checked meds and labs Reviewed therapy notes Conferred with deputy sheriff civil division of Systems General: Fatigue, Malaise Genitourinary: Retention Neurological: Confusion Objective Exam Vital Signs Vital Signs Date Time Temp Pulse Resp B/P (MAP) Pulse Ox O2 Delivery O2 Flow Rate FiO2 09/23/19 20:39 Nasal Cannula 2.00 09/23/19 19:00 63 09/23/19 17:11 37.2 20 120/74 (89) 92 Capillary Refill : General Appearance: No Apparent Distress, WD/WN, Chronically ill HEENT: PERRL/EOMI, TMs Normal, Normal ENT Inspection, Pharynx Normal, Moist Mucous Membranes Neck: Full Range of Motion, Normal Inspection, Non Tender, Supple, Carotid Bruit Respiratory: Chest Non Tender, Lungs Clear, Normal Breath Sounds, No Accessory Muscle Use, No Respiratory Distress Cardiovascular: Regular Rate, Rhythm, No Gallop, No JVD, Normal Peripheral Pulses, Systolic Murmur, Gallop/S3 Gastrointestinal: Normal Bowel Sounds, No Organomegaly, No Pulsatile Mass, Non Tender, Soft Back: Normal Inspection, No CVA Tenderness, No Vertebral Tenderness Extremity: Normal Capillary Refill, Normal Inspection, Normal Range of Motion, Non Tender, No Calf Tenderness, No Pedal Edema Neurologic/Psychiatric: Alert, manager care II-XII Norm as Tested, Depressed Affect, Disoriented, Motor Weakness (severe 4/5 legs and arms) Skin: Normal Color, Warm/Dry Lymphatic: No Adenopathy Results/Procedures Lab Patient resulted labs reviewed. FIM Transfers Therapy Code Descriptions/Definitions Functional [place] Measure: 0=Not Assessed/NA 4=Minimal Assistance 1=Total Assistance 5=Supervision or Setup 2=Maximal Assistance 6=Modified [place] 3=Moderate Assistance 7=Complete IndependenceSCALE: Activities may be completed with or without assistive devices. 8-Xlmuvmbnlk-aixymmx completes the activity by him/herself with no assistance f rom a helper. 5-Set-up or Clean-up Assistance-helper sets up or cleans up; patient completes activity. [place] assists only prior to or following the activity. 4-Supervision or Touching Assistance-helper provides verbal cues and/or touching/steadying and/or contact guard assistance as patient completes activity. Assistance may be provided throughout the activity or intermittently. 3-Partial/Moderate Assistance-helper does LESS THAN HALF the effort. [place] lifts, holds or supports trunk or limbs, but provides less than half the effort. 2-Substantial/Maximal Assistance-helper does MORE THAN HALF the effort. [place] lifts or holds trunk or limbs and provides more than half the effort. 5-Yrclypscb-jolsrz does ALL the effort. Patient does none of the effort to complete the activity. Or, the assistance of 2 or more helpers is required for the patient to complete the activity. If activity was not attempted, code reason: 7-Patient Refused. 9-Not Applicable-not attempted and the patient did not perform the activity before the current illness, exacerbation or injury. 10-Not Attempted due to Environmental Limitations-(lack of equipment, weather restraints, etc.). 88-Not Attempted due to Medical Conditions or Safety Concerns. Roll Left to Right (QC): 4 Sit to Lying (QC): 4 Sit to Stand (QC): 4 Chair/Qfe-pk-Blzce Xfer(QC): 4 Car Transfer (QC): 3 Gait Training Does the Patient Walk?: Yes Distance: 5 Walk 10 feet (QC): 5 Walk 50 ft with 2 Turns(QC): 3 (modA) Walk 150 ft (QC): 88 Walking 10ft/uneven surface-QC: 3 Gait Persons Needed: 1 Gait Assistive Device: FWW Wheelchair Training Does the Pt Use a Wheelchair?: No Wheel 50 ft with 2 turns (QC): 9 Wheel 150 ft (QC): 9 Stair Training 1 Step (curb) (QC): 3 4 Steps (QC): 88 12 Steps (QC): 9 Balance Picking up an Object (QC): 6 (from sitting position) ADL-Treatment Eating (QC): 6 Oral Hygiene (QC): 7 Shower/Bathe Self (QC): 4 (Pt completes all areas (excluding back which he does not get at home), with CGA in stance during bottom hygiene.) Upper Body Dressing (QC): 5 (s/u) Lower Body Dressing (QC): 4 (Prep for threading catheter; pt sit to stand at FWW with CGA, pull pants past hips with CGA) On/Off Footwear (QC): 6 Toileting Hygiene (QC): 2 (Pt TD with bottom hygiene on this date due to c/o fatigue and limited strength.) Toilet Transfer (QC): 7 Assessment/Plan Assessment and Plan Assess & Plan/Chief Complaint Assessment: Intraparenchymal hematoma [place] Confusion CRI 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 Extensive CAD AF Foreskin edema Plan: Eval NH options for slower recovery if he fails this program over the weekend IRF protocol in meantime Monitor orthostasis Prognosis guarded at this time Dr Lovett consultation is appreciated (1) Intraparenchymal hematoma of brain (2) Orthostasis (3) COPD (chronic obstructive pulmonary disease) (4) Atrial fibrillation (5) CAD (coronary artery disease) (6) NPH (normal pressure hydrocephalus) (7) Renal insufficiency (8) Vertigo (9) Weakness (10) PVD (peripheral vascular disease) (11) Cognitive deficits (12) SYL (obstructive sleep apnea) (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
--- NOTE | 2019-09-23 14:08 | CONSULTATION REPORT ---
DATE OF SERVICE: 09/23/2019 ATTENDING PHYSICIAN: Dr. Fernandez. SUMMARY: An 84-year-old white man admitted to the rehabilitation unit and was found to have a recurrent paraphimosis. Has a Mueller catheter in due to urinary retention post-stroke where he was unable to void despite straight catheterization. He has been seeing an urologist in [place], Dr. Osuna and he is on Flomax. PHYSICAL EXAMINATION: The patient has a paraphimosis that I was able to reduce. Catheter draining clear urine. I told the nurse to check the foreskin for every shift and to apply some hydrocortisone cream twice a day for now. IMPRESSION: 1. Paraphimosis was reduced. 2. 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 PLAN: We will watch the foreskin for now. Then, when he goes home, he can follow up with his urologist in [place] regarding his urinary issues. This was explained to the patient and his daughter. Job ID: [id number] DocumentID: [id number] Dictated Date: 09/23/2019 12:22:22 Hematology Nurse Educator Date: 09/23/2019 14:07:10 Dictated By: ZEYNEP WALKER MD
[2019-09-23] MEDS: HYDROCORTISONE 1% CREAM 30 GM TUBE TOP SCH ×2 (15:16→19:53)
--- NOTE | 2019-09-23 15:20 | NUR ---
PT UP WALKING IN HALLS/TOLERATED WELL/NO OXYGEN. PT BACK TO ROOM LYING IN BED/MEDICATION PLACED ON PENIS/FORESKIN PULLED DOWN/ PT HAS O2 OFF AT THIS TIME AND IS SATS AT 94%. PT WILL BE MONITORED. FAMILY IN ROOM FOR SUPPORT
[2019-09-23 17:11] VITALS: BP 120/74
[2019-09-24] MEDS: CATHETER FLUSH 10 ML SYR IV SCH ×2 (04:59→14:34)
[2019-09-24 06:04] VITALS: BP 127/71
[2019-09-24] MEDS: MULTIVIT W/MINERALS TAB (THERAGRAN M) PO SCH (06:04)
[2019-09-24] MEDS: VITAMIN D3 1,000 UNITS (CHOLECALCIFEROL) TABLET PO SCH (06:04)
[2019-09-24 06:48] LABS: HEMOGLOBIN 10.6 G/DL (13.3-17.7); MEAN PLATELET VOLUME 9.7 FL (7.4-10.4); RED CELL DISTRIBUTION WIDTH 16.4 % (10.0-14.5); WHITE BLOOD COUNT 7.9 10^3/uL (4.3-11.0)
[2019-09-24 06:57] LABS: INR 1.1 (0.8-1.4); PROTHROMBIN TIME PATIENT 14.5 SEC (12.2-14.7)
[2019-09-24 07:18] LABS: ALBUMIN 3.3 GM/DL (3.2-4.5); BILIRUBIN,TOTAL 0.7 MG/DL (0.1-1.0); CALCIUM 8.6 MG/DL (8.5-10.1); CREATININE SERUM 1.55 MG/DL (0.60-1.30); POTASSIUM 4.1 MMOL/L (3.6-5.0); TOTAL PROTEIN 6.3 GM/DL (6.4-8.2)
[2019-09-24 08:16] VITALS: BP 146/75
[2019-09-24] MEDS: AMIODARONE 200 MG (CORDARONE) TAB PO SCH ×2 (08:17→20:10)
[2019-09-24] MEDS: ALLOPURINOL 100 MG (ZYLOPRIM) TAB PO SCH (08:18)
[2019-09-24] MEDS: SENNA W/DOCUSATE (SENOKOT S) TABLET PO SCH ×2 (08:18→20:10)
[2019-09-24] MEDS: FINASTERIDE (PROSCAR) 5 MG TAB PO SCH (08:18)
[2019-09-24] MEDS: HYDROCORTISONE 1% CREAM 30 GM TUBE TOP SCH ×2 (08:18→20:13)
[2019-09-24] MEDS: ASPIRIN E.C. 325 MG (ECOTRIN) TABLET PO SCH (08:18)
[2019-09-24] MEDS: PANTOPRAZOLE 40 MG (PROTONIX) TAB PO SCH (08:18)
[2019-09-24] MEDS: rOPINIRole 0.25 MG (REQUIP) TAB PO SCH ×2 (08:18→20:10)
[2019-09-24] MEDS: LORATADINE (CLARITIN) 10 MG TAB PO SCH (08:18)
--- NOTE | 2019-09-24 08:19 | Progress Note ---
[facility] 09/24/19 0818: Progress Note Time:0720 Subjective: Patient history and exam was limited due to patient's hearing. Patient did not have his hearing aids in at the time. Patient had no complaints. UA Showed Gram negative Rods and mixed Steffanie. Patient denied Blurry Vision, or headaches, SOB, Palpitations, abdominal pain. GFR @ 43 ALT is elevated at 78 and AST is elevated at 36 but continue to decline Objective: CV: RRR, 2/4 radial Bilaterally. Resp: CTAB, No accessory muscle use, No respiratory Distress Assessment: Urine Retention due to CVA and BPH Acute CVA, UTI PAF HTN Plan: Culture and Sensitivity of UA Monitor Vitals and continue medication Start Antibiotics Barriers to Home: - Patient plans to return home to - Patient was independent at home with - Patient states that he had fatigue and weakness while recovering from CVA - Patient is currently in wheelchair. - Patient's Medications should be reviewed due to Orthostatic hypotension while standing. DENEEN MENDENHALL DO 09/24/192035: Supervisory-Addendum Brief Verification & Attestation Participated in pt care: history, MDM, physical Personally performed: exam, history, MDM, supervision of care Care discussed with: Medical Student Procedures: n/a Results interpretation: Verified all documentation Verification and Attestation of Medical Student E/M Service A medical student performed and documented this service in my presence. I reviewed and verified all information documented by the medical student and made modifications to such information, when appropriate. I personally performed the physical exam and medical decision making. Deneen Mendenhall, Sep 24, 2019,20:36 [facility] Sep 24, 2019 08:18 DENEEN ANTONIO DO Sep 24, 2019 20:36 POS
--- NOTE | 2019-09-24 08:23 | Cardiology Progress Note ---
Subjective Date Seen by Provider: Sep 24, 2019 Time Seen by Provider: 08:22 Subjective/Events-last exam Patient is sitting up in bed, no new complaints. Denies any chest pain Review of Systems General: No Chills, No Night Sweats; Fatigue; No Malaise, No Appetite, No Other HEENT: No Head Aches, No Visual Changes, No Eye Pain, No Ear Pain, No Dysphasia, No Sinus Congestion, No Post Nasal Drip, No Sore Throat, No Other Pulmonary: Dyspnea; No Cough, No Pleuritic Chest Pain, No Other Cardiovascular: No: Chest Pain, Palpitations, Orthopnea, Paroxysmal Noc. Dyspnea, Edema, Lt Headedness, Other Objective-Cardiology Exam Last Set of Vital Signs Vital Signs 09/23/19 09/24/19 09/24/19 09/24/19 20:39 06:04 07:00 08:16 Temp 37.1 Pulse 57 Resp 18 B/P (MAP) 146/75 (98) Pulse Ox 93 O2 Delivery Room Air O2 Flow Rate 2.00 Capillary Refill : I&O Intake and Output 09/24/19 00:00 Intake Total 900 ml Output Total 800 ml Balance 100 ml Intake Oral 900 ml Output Urine Total 800 ml # Bowel Movements 1 General: Alert, Oriented X3, Cooperative, No Acute Distress HEENT: Atraumatic, PERRLA Neck: Supple Lungs: Clear to Auscultation, Normal Air Movement Heart: Regular Rate, Other ( II/ CONNIE) Abdomen: Normal Bowel Sounds, Soft Extremities: No Clubbing, No Edema Skin: No Breakdown Neuro: Normal Speech, Cranial Nerves 3-12 NL (COCHLEAR IMPLANT) Psych/Mental Status: Mental Status NL, Mood NL Results Lab Laboratory Tests 09/24/19 05:06 A/P-Cardiology Admission Diagnosis Acute CVA Intracranial bleed Paroxysmal atrial fibrillation Hypertension Assessment/Plan Status post intracranial bleed, left occipital intraparenchymal and left post erior subdural hemorrhage, was evaluated and treated by neurology, currently recovering and receiving physical therapy and occupational therapy. Managed by primary care team Hypotensive episode, had multiple episode of hypotension while in , family reporting questionable history of hypotension in the past, better at this time. Continue to monitor Paroxysmal atrial fibrillation, currently off oral anticoagulation due to intracranial bleed. Was maintained on Coumadin. Maintained on amiodarone. Continue to hold Coumadin Coronary artery disease multiple interventions in the past done by Dr. Pandey reporting history of 10 stents in the past, 5 balloon angioplasties. Reporting last intervention done 5 years ago. Last LHC done January 2018 revealed 50% diag, 30-50% prox RCA and 30-40% ostial RCA. Most recent stress test done January 2019 revealing no ischemia or infarct. CHF, ischemic cardiomyopathy, most recent 2D Echo done March 2019 revealed EF 45%, grade 1 diastolic dysfunction, aortic valve sclerosis without stenosis. 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 Follows with neurology in . 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 Weber History of thoracic aortic dissection, treated conservatively in [place] in the past, continue to monitor Labile hypertension with episode of hypotension, losartan discontinued, continue to monitor. Hyperlipidemia, monitor lipids CKD- continue to monitor renal function Elevated LFT's- trending down, continue to monitor. Generalized weakness and debility. Patient was seen and evaluated with [place], examination performed, management plan was discussed, agree with the current scribed note, I made few changes to the note using Italic font Patient is laying down in bed, comfortable, still having generalized fatigue No further episodes of orthostatic dizziness or hypotension were reported Lungs were clear to auscultation, heart is regular Keep holding Coumadin. Clinical Quality Measures DVT/VTE Risk/Contraindication: Risk Factor Score Per Nursin RFS Level Per Nursing on Admit: 2=Moderate [place] GOMEZ Sep 24, 2019 8:23 am GABBY HEREDIA MD Sep 24, 2019 9:35 am MONA
--- NOTE | 2019-09-24 09:22 | Speech Therapy Daily Note ---
Speech Daily Progress Note Subjective Date Seen by Provider: Sep 24, 2019 Time Seen by Provider: 00:30 Patient was sitting up in his bed finishing his breakfast when I entered his room. Objective Patient completed memory tasks related to his daily needs with 90% given minimal cues. Assessment Assessment Current Status: Good Progress Treatment Plan Continue Plan of Care Speech Short Term Goals Short Term Goals Short Term Goals 1) The patient will complete memory tasks related to his daily needs at 90% or greater with minimal cues. 2) The patient will complete problem solving tasks related to his daily needs at 90% or greater with minimal cues. 3) The patient will complete safety awareness tasks related to his daily needs at 90% or greater with minimal cues. 4) The patient will tolerate least restrictive diet without s/s of aspiration at 90%. 5) The patient will utilize compensatory strategies for safe oral intake at 90% with minimal cues. Speech Deputy Chief Sheriff Goals Deputy Chief Sheriff Goals Patient will improve cognitive-communication abilities in order to complete daily tasks with minimal assist. Patient will maintain adequate nutrition/hydration via safe effective swallow function. Speech-Plan Patient/Family Goals Patient/Family Goals: Patient plans on returning home with his upon discharge. Treatment Plan Speech Therapy Treatment Plan: Continue Plan of Care Patient states repeatedly that he wants to go home. Treatment Duration: Sep 28, 2019 Frequency: 5 times per week Estimated Hrs Per Day: .5 hour per day Rehab Potential: SYLVIA Rucker Sep 24, 2019 09:22 POS
--- NOTE | 2019-09-24 09:26 | Speech Therapy Daily Note ---
Speech Daily Progress Note Subjective Date Seen by Provider: Sep 24, 2019 Time Seen by Provider: 00:30 Patient was sitting up in his bed finishing his breakfast when I entered his room. Objective Patient completed memory tasks related to his daily needs at 90% with minimal cues. Assessment Assessment Current Status: Good Progress Treatment Plan Continue Plan of Care Speech Short Term Goals Short Term Goals Short Term Goals 1) The patient will complete memory tasks related to his daily needs at 90% or greater with minimal cues. 2) The patient will complete problem solving tasks related to his daily needs at 90% or greater with minimal cues. 3) The patient will complete safety awareness tasks related to his daily needs at 90% or greater with minimal cues. 4) The patient will tolerate least restrictive diet without s/s of aspiration at 90%. 5) The patient will utilize compensatory strategies for safe oral intake at 90% with minimal cues. Speech International Organizer Goals International Organizer Goals Patient will improve cognitive-communication abilities in order to complete daily tasks with minimal assist. Patient will maintain adequate nutrition/hydration via safe effective swallow function. Speech-Plan Patient/Family Goals Patient/Family Goals: Patient plans on returning home with his upon discharge from rehab. Treatment Plan Speech Therapy Treatment Plan: Continue Plan of Care Patient repeatedly says he is ready to go home. He was upgraded to regular diet level today due to increased status. Treatment Duration: Sep 28, 2019 Frequency: 5 times per week Estimated Hrs Per Day: .5 hour per day Rehab Potential: Fair Barriers to Learning: Patient had cognitive deficits, however these are resolving Pt/Family Agrees to Plan: Yes Safety Risks/Education Teaching Recipient: Patient Teaching Methods: Demonstration, Discussion Response to Teaching: Verbalize Understanding, Return Demonstration Education Topics Provided: Safety within his room and communication of his wants/needs Time Speech Therapy Time In: 09:00 Speech Therapy Time Out: 09:30 Total Billed Time: 30 Billed Treatment Time 1, SYLVIA Cordoba Sep 24, 2019 09:26 POS
[2019-09-24] MEDS: POLYETHYLENE GLYCOL 17 GM (MIRALAX) PACK PO SCH ×2 (09:43→20:14)
--- NOTE | 2019-09-24 09:47 | PM&R Progress Note ---
Subjective HPI/CC On Admission Date Seen by Provider: Sep 24, 2019 Time Seen by Provider: 08:30 Subjective/Events-last exam Weaned off O2 now at 93% on room air Wore CPAP last night Dr. Lovett has managed the foreskin problem by putting hydrocortisone cream and pt doing well now Last BM was yesterday Appears to be more lucid but will have a long recovery ahead of him Labs were reviewed, will stop daily labs Urine culture showed gram negative manuel with mixed caterina No more fever so no requirement for treatment Checked meds and labs Reviewed therapy notes Conferred with senior caregiver of Systems General: Fatigue Neurological: Confusion Objective Exam Vital Signs Vital Signs Date Time Temp Pulse Resp B/P (MAP) Pulse Ox O2 Delivery O2 Flow Rate FiO2 09/24/19 18:50 67 09/24/19 16:00 36.4 16 127/80 (96) 94 Room Air 09/23/19 20:39 2.00 Capillary Refill : General Appearance: No Apparent Distress, WD/WN, Chronically ill HEENT: PERRL/EOMI, TMs Normal, Normal ENT Inspection, Pharynx Normal, Moist Mucous Membranes Neck: Full Range of Motion, Normal Inspection, Non Tender, Supple, Carotid Bruit Respiratory: Chest Non Tender, Lungs Clear, Normal Breath Sounds, No Accessory Muscle Use, No Respiratory Distress Cardiovascular: Regular Rate, Rhythm, No Gallop, No JVD, Normal Peripheral Pulses, Systolic Murmur, Gallop/S3 Gastrointestinal: Normal Bowel Sounds, No Organomegaly, No Pulsatile Mass, Non Tender, Soft Back: Normal Inspection, No CVA Tenderness, No Vertebral Tenderness Extremity: Normal Capillary Refill, Normal Inspection, Normal Range of Motion, Non Tender, No Calf Tenderness, No Pedal Edema Neurologic/Psychiatric: Alert, vocational technical education teacher II-XII Norm as Tested, Depressed Affect, Disoriented, Motor Weakness (severe 4/5 legs and arms) Skin: Normal Color, Warm/Dry Lymphatic: No Adenopathy Results/Procedures Lab Laboratory Tests 09/24/19 05:06 Patient resulted labs reviewed. FIM Transfers Therapy Code Descriptions/Definitions Functional [place] Measure: 0=Not Assessed/NA 4=Minimal Assistance 1=Total Assistance 5=Supervision or Setup 2=Maximal Assistance 6=Modified [place] 3=Moderate Assistance 7=Complete IndependenceSCALE: Activities may be completed with or without assistive devices. 1-Lvnfwhcixl-vmbrafl completes the activity by him/herself with no assistance from a helper. 5-Set-up or Clean-up Assistance-helper sets up or cleans up; patient completes activity. [place] assists only prior to or following the activity. 4-Supervision or Touching Assistance-helper provides verbal cues and/or touching/steadying and/or contact guard assistance as patient completes activity. Assistance may be provided throughout the activity or intermittently. 3-Partial/Moderate Assistance-helper does LESS THAN HALF the effort. [place] lifts, holds or supports trunk or limbs, but provides less than half the effort. 2-Substantial/Maximal Assistance-helper does MORE THAN HALF the effort. [place] lifts or holds trunk or limbs and provides more than half the effort. 4-Izrbidchj-fntdry does ALL the effort. Patient does none of the effort to complete the activity. Or, the assistance of 2 or more helpers is required for the patient to complete the activity. If activity was not attempted, code reason: 7-Patient Refused. 9-Not Applicable-not attempted and the patient did not perform the activity before the current illness, exacerbation or injury. 10-Not Attempted due to Environmental Limitations-(lack of equipment, weather restraints, etc.). 88-Not Attempted due to Medical Conditions or Safety Concerns. Roll Left to Right (QC): 4 Sit to Lying (QC): 4 Sit to Stand (QC): 4 Chair/Hob-wj-Kvngm Xfer(QC): 4 Car Transfer (QC): 3 Gait Training Does the Patient Walk?: Yes Distance: 5 Walk 10 feet (QC): 5 Walk 50 ft with 2 Turns(QC): 3 (modA) Walk 150 ft (QC): 88 Walking 10ft/uneven surface-QC: 3 Gait Persons Needed: 1 Gait Assistive Device: FWW Wheelchair Training Does the Pt Use a Wheelchair?: No Wheel 50 ft with 2 turns (QC): 9 Wheel 150 ft (QC): 9 Stair Training 1 Step (curb) (QC): 3 4 Steps (QC): 88 12 Steps (QC): 9 Balance Picking up an Object (QC): 6 (from sitting position) ADL-Treatment Eating (QC): 6 Oral Hygiene (QC): 7 Shower/Bathe Self (QC): 4 (Pt completes all areas (excluding back which he does not get at home), with CGA in stance during bottom hygiene.) Upper Body Dressing (QC): 5 (s/u) Lower Body Dressing (QC): 4 (Prep for threading catheter; pt sit to stand at FWW with CGA, pull pants past hips with CGA) On/Off Footwear (QC): 6 Toileting Hygiene (QC): 2 (Pt TD with bottom hygiene on this date due to c/o fatigue and limited strength.) Toilet Transfer (QC): 7 Assessment/Plan Assessment and Plan Assess & Plan/Chief Complaint Assessment: Intraparenchymal hematoma Falls Confusion CRI 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 Extensive CAD AF Foreskin edema-improved with hydrocortisone cream Plan: Eval NH options for slower recovery if he fails this program over the weekend IRF protocol in meantime Monitor orthostasis Prognosis guarded at this time Dr Lovett consultation is appreciated (1) Intraparenchymal hematoma of brain (2) Orthostasis (3) COPD (chronic obstructive pulmonary disease) (4) Atrial fibrillation (5) CAD (coronary artery disease) (6) NPH (normal pressure hydrocephalus) (7) Renal insufficiency (8) Vertigo (9) Weakness (10) PVD (peripheral vascular disease) (11) Cognitive deficits (12) SYL (obstructive sleep apnea) (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
--- NOTE | 2019-09-24 10:18 | Physical Therapy Daily Note ---
PT Daily Note-Current Subjective Pt. agrees to Rx. States he is disappointed but still feels dizziness when on his feet. Pain Location: No Pain Reported Mental Status Patient Orientation: Normal For Age Attachments: Other-See Comments (telemetry) Transfers SCALE: Activities may be completed with or without assistive devices. 9-Xffwmjhnib-rvxohsw completes the activity by him/herself with no assistance from a helper. 5-Set-up or Clean-up Assistance-helper sets up or cleans up; patient completes activity. [place] assists only prior to or following the activity. 4-Supervision or Touching Assistance-helper provides verbal cues and/or touching/steadying and/or contact guard assistance as patient completes activity. Assistance may be provided throughout the activity or intermittently. 3-Partial/Moderate Assistance-helper does LESS THAN HALF the effort. [place] lifts, holds or supports trunk or limbs, but provides less than half the effort. 2-Substantial/Maximal Assistance-helper does MORE THAN HALF the effort. [place] lifts or holds trunk or limbs and provides more than half the effort. 1-Eignvuubk-jqaksm does ALL the effort. Patient does none of the effort to complete the activity. Or, the assistance of 2 or more helpers is required for the patient to complete the activity. If activity was not attempted, code reason: 7-Patient Refused. 9-Not Applicable-not attempted and the patient did not perform the activity before the current illness, exacerbation or injury. 10-Not Attempted due to Environmental Limitations-(lack of equipment, weather restraints, etc.). 88-Not Attempted due to Medical Conditions or Safety Concerns. Roll Left & Right (QC): 6 Sit to Lying (QC): 6 Lying to Sitting/Side of Bed(Q: 6 Sit to Stand (QC): 5 Chair/Ilj-an-Nztjg Xfer(QC): 5 Toilet Transfer (QC): 5 pt. requires SBA to CGA secondary to unforeseen dizziness and BP drops that have been happening Gait Training Does the Patient Walk?: Yes Walk 10 feet (QC): 4 Gait Persons Needed: 1 Gait Assistive Device: FWW Wheelchair Training Does the Pt Use a Wheelchair?: Yes Wheel 50 ft with 2 turns (QC): 4 Type of Wheelchair: Manual pt. needs instruction for brakes and for steering and managing in tight areas as pt. moves impulsively and attempts to "bulldoze" through even when he is bumping directly in to door etc Exercises Supine Ex: Bridging, Ankle pumps, Rolling, Heel Slides, Scooting, Straight leg raise, Hip abd/add Supine Reps: 15 NuStep Minutes: 10 NuStep Workload: 5 Treatments nu step to cont exercise for extended period with psuedo walking pattern, also seated leg presses on Nustep x 15 reps Assessment Current Status: Fair Progress BP sitting with mild c/o dizziness :122/79, standin/71 and after 1.5 mins 99/65, HR 77BPM, O2 sats on RA 93% PT Thread Checker Goals Thread Checker Goals PT Thread Checker Goals Time Frame: Oct 12, 2019 Roll Left & Right (QC): 6 Sit to Lying (QC): 6 Lying-Sitting on Side/Bed(QC): 6 Sit to Stand (QC): 6 Chair/Hro-jz-Wzoxo Xfer(QC): 6 Toilet Transfer (QC): 6 Car Transfer (QC): 6 Does the Patient Walk: Yes Walk 10 feet (QC): 6 Walk 50ft with 2 Turns (QC): 6 Walk 150 ft (QC): 6 Walking 10ft on Uneven Surface: 6 1 Step (curb) (QC): 6 4 Steps (QC): 9 12 Steps (QC): 9 Picking up an Object (QC): 6 Does the Pt use WC or Scooter?: No Type: N/A Type: N/A PT Plan Treatment/Plan Treatment Plan: Continue Plan of Care Treatment Plan: Bed Mobility, Education, Functional Activity Ronit, Functional Strength, Gait, Safety, Therapeutic Exercise, Transfers Treatment Duration: Oct 12, 2019 Frequency: At least 5 of 7 days/Wk (IRF) Estimated Hrs Per Day: 1.5 hours per day Patient and/or Family Agrees t: Yes Safety Risks/Education Patient Education: Gait Training, Transfer Techniques, Correct Positioning, W/C Management, Disease Process, Safety Issues Teaching Recipient: Patient Teaching Methods: Demonstration, Discussion Response to Teaching: Verbalize Understanding, Return Demonstration, Reinforcement Needed Time/GCodes Time In: 930 Time Out: 1015 Total Billed Treatment Time: 45 Total Billed Treatment 1,EX20m,FA25m NEDRA ALVARADO PTA Sep 24, 2019 10:18 POS
--- NOTE | 2019-09-24 12:51 | Occupational Ther Daily Note ---
OT Current Status-Daily Note Subjective Pt sleeping in bed, woke easily. Pt agrees to therapy. Pt states you have to tell me what you want me to do. No c/o pain. Mental Status/Objective Patient Orientation: Person, Place, Time, Situation ADL-Treatment Pt agrees to sponge bathe. After set up and verbal cues for what to do next after each step, pt able to reach all areas. Pt leaned side to side to bathe buttocks. After set up, pt able to complete upper body dressing and don/doff socks. Pt doffed pants with CGA in standing, pt would lose balance backwards when hiking pants over hips. Pt required assist to thread Mueller catheter through pant leg. Pt fatigues quickly and takes multiple recovery breaks. Therapy Code Descriptions/Definitions Functional [place] Measure: 0=Not Assessed/NA 4=Minimal Assistance 1=Total Assistance 5=Supervision or Setup 2=Maximal Assistance 6=Modified [place] 3=Moderate Assistance 7=Complete IndependenceSCALE: Activities may be completed with or without assistive devices. 3-Yvadjmhvry-xlmmxlo completes the activity by him/herself with no assistance from a helper. 5-Set-up or Clean-up Assistance-helper sets up or cleans up; patient completes activity. [place] assists only prior to or following the activity. 4-Supervision or Touching Assistance-helper provides verbal cues and/or touc estella/steadying and/or contact guard assistance as patient completes activity. Assistance may be provided throughout the activity or intermittently. 3-Partial/Moderate Assistance-helper does LESS THAN HALF the effort. [place] lifts, holds or supports trunk or limbs, but provides less than half the effort. 2-Substantial/Maximal Assistance-helper does MORE THAN HALF the effort. [place] lifts or holds trunk or limbs and provides more than half the effort. 4-Eglbfkqno-kieuhi does ALL the effort. Patient does none of the effort to complete the activity. Or, the assistance of 2 or more helpers is required for the patient to complete the activity. If activity was not attempted, code reason: 7-Patient Refused. 9-Not Applicable-not attempted and the patient did not perform the activity before the current illness, exacerbation or injury. 10-Not Attempted due to Environmental Limitations-(lack of equipment, weather restraints, etc.). 88-Not Attempted due to Medical Conditions or Safety Concerns. Shower/Bathe Self (QC): 4 Upper Body Dressing (QC): 5 Lower Body Dressing (QC): 3 Other Treatment Pt completed UE exercises in supine due to increased fatigue. 3# wt for UE exercises in all planes, 3 sets 15-20 reps each. After therapy, pt lying in bed sleeping. Call light/phone in reach. All needs met in room. OT Short Term Goals Short Term Goals Eatin Oral hygiene: 6 Upper body dressin Lower body dressin (met) OT Sld Inclusion Teacher Goals Sld Inclusion Teacher Goals Time Frame: Oct 02, 2019 Eating (QC): 6 (met) Oral Hygiene (QC): 6 (met) Toileting Hygiene (QC): 6 Shower/Bathe Self (QC): 4 Upper Body Dressing (QC): 6 Lower Body Dressing (QC): 6 On/Off Footwear (QC): 6 Additional Goals: 1-Demonstrate ADL Tasks, 2-Verbalize Understanding, 3- ImproveStrength/Ronit 1=Demonstrate adherence to instructed precautions during ADL tasks. 2=Patient will verbalize/demonstrate understanding of assistive devices/modifications for ADL. 3=Patient will improve strength/tolerance for activity to enable patient to perform ADL's. OT Education/Plan Problem List/Assessment Assessment: Decreased Activ Tolerance, Decreased UE Strength, Impaired Coordination, Impaired Funct Balance, Impaired Self-Care Skills Discharge Recommendations Plan/Recommendations: Continue POC Treatment Plan/Plan of Care Patient would benefit from OT for education, treatment and training to promote independence in ADL's, mobility, safety and/or upper extremity function for ADL's. Plan of Care: ADL Retraining, Caregiver Training, Functional Mobility, Group Exercise/Act as Ind, UE Funct Exercise/Act Treatment Duration: Oct 02, 2019 Frequency: At least 5 of 7 days/Wk (IRF) Estimated Hrs Per Day: 1.5 hours per day Agreement: Yes Rehab Potential: Fair Time/GCodes Start Time: 11:00 Stop Time: 12:00 Total Time Billed (hr/min): 60 Billed Treatment Time 1 visit-ADL 3 (40 min) EX 1 (20 min) LUBA MCCARTHY Sep 24, 2019 12:51 POS
--- NOTE | 2019-09-24 14:28 | Occupational Ther Daily Note ---
OT Current Status-Daily Note Subjective Pt sleeping, woke to name. Pt agrees to therapy. No c/o pain at this time. Mental Status/Objective Patient Orientation: Person, Place, Time, Situation ADL-Treatment Therapy Code Descriptions/Definitions Functional [place] Measure: 0=Not Assessed/NA 4=Minimal Assistance 1=Total Assistance 5=Supervision or Setup 2=Maximal Assistance 6=Modified [place] 3=Moderate Assistance 7=Complete IndependenceSCALE: Activities may be completed with or without assistive devices. 8-Dwjasyzgis-qxgcqrx completes the activity by him/herself with no assistance from a helper. 5-Set-up or Clean-up Assistance-helper sets up or cleans up; patient completes activity. [place] assists only prior to or following the activity. 4-Supervision or Touching Assistance-helper provides verbal cues and/or touching/steadying and/or contact guard assistance as patient completes activity. Assistance may be provided throughout the activity or intermittently. 3-Partial/Moderate Assistance-helper does LESS THAN HALF the effort. [place] lifts, holds or supports trunk or limbs, but provides less than half the effort. 2-Substantial/Maximal Assistance-helper does MORE THAN HALF the effort. [place] lifts or holds trunk or limbs and provides more than half the effort. 1-Phqtgafyd-bxoakz does ALL the effort. Patient does none of the effort to complete the activity. Or, the assistance of 2 or more helpers is required for the patient to complete the activity. If activity was not attempted, code reason: 7-Patient Refused. 9-Not Applicable-not attempted and the patient did not perform the activity before the current illness, exacerbation or injury. 10-Not Attempted due to Environmental Limitations-(lack of equipment, weather restraints, etc.). 88-Not Attempted due to Medical Conditions or Safety Concerns. Other Treatment Supine <--> EOB and bed mobility, mod I using bed rails. Pt ambulated using FWW with CGA around [facility]. Pt then completed resistive clothes pins with each hand to increase environmental science technician/pinch strength for daily functional tasks. After therapy, pt lying in bed with call light/phone in reach. All needs met in room. OT Short Term Goals Short Term Goals Eatin Oral hygiene: 6 Upper body dressin Lower body dressin (met) OT Warehouse Logistics Coordinator Goals Intermediate Goals Time Frame: Oct 02, 2019 Eating (QC): 6 (met) Oral Hygiene (QC): 6 (met) Toileting Hygiene (QC): 6 Shower/Bathe Self (QC): 4 Upper Body Dressing (QC): 6 Lower Body Dressing (QC): 6 On/Off Footwear (QC): 6 Additional Goals: 1-Demonstrate ADL Tasks, 2-Verbalize Understanding, 3- ImproveStrength/Ronit 1=Demonstrate adherence to instructed precautions during ADL tasks. 2=Patient will verbalize/demonstrate understanding of assistive devices/modifications for ADL. 3=Patient will improve strength/tolerance for activity to enable patient to perform ADL's. OT Education/Plan Problem List/Assessment Assessment: Decreased Activ Tolerance, Decreased UE Strength Discharge Recommendations Plan/Recommendations: Continue POC Treatment Plan/Plan of Care Patient would benefit from OT for education, treatment and training to promote independence in ADL's, mobility, safety and/or upper extremity function for ADL's. Plan of Care: ADL Retraining, Caregiver Training, Functional Mobility, Group Exercise/Act as Ind, UE Funct Exercise/Act Treatment Duration: Oct 02, 2019 Frequency: At least 5 of 7 days/Wk (IRF) Estimated Hrs Per Day: 1.5 hours per day Agreement: Yes Rehab Potential: Fair Time/GCodes Start Time: 14:00 Stop Time: 14:15 Total Time Billed (hr/min): 15 Billed Treatment Time 1 visit-FA 1 (15 min) LUBA MCCARTHY Sep 24, 2019 14:28 POS
--- NOTE | 2019-09-24 15:12 | NUR ---
Reviewed patient progress, working well with therapies, alert and responsive to conversation. Motivated to return home. Review in weekly team conference for complete interdisciplinary updates.
--- NOTE | 2019-09-24 15:41 | Physical Therapy Daily Note ---
PT Daily Note-Current Subjective Pt. agrees to Rx then states, "but this is it for me today" Pain Location: No Pain Reported Mental Status Patient Orientation: Normal For Age hard of hearing Transfers SCALE: Activities may be completed with or without assistive devices. 0-Emiomdbtqu-owmihyh completes the activity by him/herself with no assistance from a helper. 5-Set-up or Clean-up Assistance-helper sets up or cleans up; patient completes activity. [place] assists only prior to or following the activity. 4-Supervision or Touching Assistance-helper provides verbal cues and/or touching/steadying and/or contact guard assistance as patient completes activity. Assistance may be provided throughout the activity or intermittently. 3-Partial/Moderate Assistance-helper does LESS THAN HALF the effort. [place] lifts, holds or supports trunk or limbs, but provides less than half the effort. 2-Substantial/Maximal Assistance-helper does MORE THAN HALF the effort. [place] lifts or holds trunk or limbs and provides more than half the effort. 0-Yqtvsqkbk-knoiyw does ALL the effort. Patient does none of the effort to comp lete the activity. Or, the assistance of 2 or more helpers is required for the patient to complete the activity. If activity was not attempted, code reason: 7-Patient Refused. 9-Not Applicable-not attempted and the patient did not perform the activity before the current illness, exacerbation or injury. 10-Not Attempted due to Environmental Limitations-(lack of equipment, weather restraints, etc.). 88-Not Attempted due to Medical Conditions or Safety Concerns. all TRFs mod I to SBA Gait Training Does the Patient Walk?: Yes Walk 10 feet (QC): 4 Walk 50 ft with 2 Turns(QC): 4 Walk 150 ft (QC): 4 Gait Persons Needed: 1 Gait Assistive Device: FWW pt. ambulated with no c/o dizziness but w/c right behind pt. in case of symptoms. Wheelchair Training Type of Wheelchair: Manual pt. instructed in using UEs to propel w/c 100ft x 2 Exercises Seated Therapy Exercises: Ankle pumps, Sit to stand, Long arc quads, Hip flexion, Hip abd/add Seated Reps: 12 NuStep Minutes: 12 NuStep Workload: 3 Treatments leg presses on Nustep x 12 Assessment Current Status: Good Progress PT Senior Care Goals Injection Molding Technician Goals PT Senior Care Goals Time Frame: Oct 12, 2019 Roll Left & Right (QC): 6 Sit to Lying (QC): 6 Lying-Sitting on Side/Bed(QC): 6 Sit to Stand (QC): 6 Chair/Ecm-rd-Vtfxp Xfer(QC): 6 Toilet Transfer (QC): 6 Car Transfer (QC): 6 Does the Patient Walk: Yes Walk 10 feet (QC): 6 Walk 50ft with 2 Turns (QC): 6 Walk 150 ft (QC): 6 Walking 10ft on Uneven Surface: 6 1 Step (curb) (QC): 6 4 Steps (QC): 9 12 Steps (QC): 9 Picking up an Object (QC): 6 Does the Pt use WC or Scooter?: No Type: N/A Type: N/A PT Plan Treatment/Plan Treatment Plan: Continue Plan of Care Treatment Plan: Bed Mobility, Education, Functional Activity Ronit, Functional Strength, Gait, Safety, Therapeutic Exercise, Transfers Treatment Duration: Oct 12, 2019 Frequency: At least 5 of 7 days/Wk (IRF) Estimated Hrs Per Day: 1.5 hours per day Patient and/or Family Agrees t: Yes Safety Risks/Education Patient Education: Gait Training, Transfer Techniques, Correct Positioning, W/C Management, Safety Issues Teaching Recipient: Patient Teaching Methods: Demonstration, Discussion Response to Teaching: Verbalize Understanding, Return Demonstration, Reinforcement Needed Time/GCodes Time In: 1500 Time Out: 1530 Total Billed Treatment Time: 30 Total Billed Treatment 1,GT15m,EX15m NEDRA ALVARADO CONVERSION DEVELOPER Sep 24, 2019 15:41 POS
[2019-09-24 16:00] VITALS: BP 127/80
--- NOTE | 2019-09-24 16:41 | NUR ---
[facility] Provided.
--- NOTE | 2019-09-24 20:00 | NUR ---
URINE DARK VALARIE. PENILE EDEMA IMPROVED. FORESKIN PULLED DOWN. ADMITS TO STILL NOT HAVING PERIPHERAL VISION OF RIGHT EYE. STATES ENJOYED BEING BACK ON REGULAR DIET TODAY.
[2019-09-24] MEDS ORDERED: warFARin 3 MG (COUMADIN) TAB PO SCH (21:00)
--- NOTE | 2019-09-25 00:30 | NUR ---
TRYING TO GET OUT OF BED ALONE AND BED EXIT ALARM RANG. CONTINUE TO USE BED/CHAIR EXIT ALARMS.
--- NOTE | 2019-09-25 01:00 | NUR ---
RECEIVED REPORT FROM IKE JORDAN. THIS RN TO ASSUME CARE OF PT AT THIS TIME.
[2019-09-25 05:52] VITALS: BP 115/63
--- NOTE | 2019-09-25 05:56 | Progress Note ---
ERICK RYAN [facility] 09/25/19 0556: Progress Note TIme: 0750 Subjective: History and events were limited due to patients hearing Does not complain of any pain. Patient was alseep when I walked in Patient Stated he needs to have a BM this morning. Urine Culture showed proteus and Enterococcus Faecalis. NO sensitivity at this moment Objective: General: Asleep, woke with physical contact. w/n, w/d CV: RRR, No murmurs, no edema, 2/4 radial pulse Bilaterally Resp: CTAB, No accessory muscle use, no respiratory distress GI: Non-distended, soft, no TTP Assessment: Acute CVA, Intracranial Bleed (treated by Neurology at ) PAF, HTN Plan: Conitnue to monitor symptoms, vitals, and medications Management of PAF difficult due to recent CVA. Barriers: - Patient continues to have good progress - Endurance and Strength DENEEN MENDENHALL DO 09/25/19 2113: Supervisory-Addendum Brief Verification & Attestation Participated in pt care: history, MDM, physical Personally performed: exam, history, MDM, supervision of care Care discussed with: Medical Student Procedures: n/a Results interpretation: Verified all documentation Verification and Attestation of Medical Student E/M Service A medical student performed and documented this service in my presence. I reviewed and verified all information documented by the medical student and made modifications to such information, when appropriate. I personally performed the physical exam and medical decision making. Deneen Mendenhall, Sep 25, 2019,21:13 ER[facility] Sep 25, 2019 05:56 DENEEN ANTONIO DO Sep 25, 2019 21:13 POS
[2019-09-25] MEDS: VITAMIN D3 1,000 UNITS (CHOLECALCIFEROL) TABLET PO SCH (06:11)
[2019-09-25] MEDS: MULTIVIT W/MINERALS TAB (THERAGRAN M) PO SCH (06:11)
--- NOTE | 2019-09-25 08:28 | Cardiology Progress Note ---
Subjective Date Seen by Provider: Sep 25, 2019 Time Seen by Provider: 08:27 Subjective/Events-last exam Patient is in bed, denies any chest pain or dyspnea Objective-Cardiology Exam Last Set of Vital Signs Vital Signs 09/23/19 09/25/19 09/25/19 20:39 05:52 07:00 Temp 37.2 Pulse 59 Resp 16 B/P (MAP) 115/63 (80) Pulse Ox 93 O2 Delivery Room Air O2 Flow Rate 2.00 Capillary Refill : I&O Intake and Output 09/25/19 00:00 Intake Total 440 ml Output Total 825 ml Balance -385 ml Intake Oral 440 ml Output Urine Total 825 ml General: Alert, Oriented X3, Cooperative, No Acute Distress HEENT: Atraumatic, PERRLA Neck: Supple Lungs: Clear to Auscultation, Normal Air Movement Heart: Regular Rate, Other ( II/ CONNIE) Abdomen: Normal Bowel Sounds, Soft Extremities: No Clubbing, No Edema Skin: No Breakdown Neuro: Normal Speech, Cranial Nerves 3-12 NL (COCHLEAR IMPLANT) Psych/Mental Status: Mental Status NL, Mood NL A/P-Cardiology Admission Diagnosis Acute CVA Intracranial bleed Paroxysmal atrial fibrillation Hypertension Assessment/Plan Status post intracranial bleed, left occipital intraparenchymal and left posterior subdural hemorrhage, was evaluated and treated by neurology, currently recovering and receiving physical therapy and occupational therapy. Managed by primary care team Hypotensive episode, had multiple episode of hypotension while in , family reporting questionable history of hypotension in the past, better at this time. Continue to monitor Paroxysmal atrial fibrillation, currently off oral anticoagulation due to intracranial bleed. Was maintained on Coumadin. Maintained on amiodarone. Continue to hold Coumadin Coronary artery disease multiple interventions in the past done by Dr. Pandey reporting history of 10 stents in the past, 5 balloon angioplasties. Reporting last intervention done 5 years ago. Last LHC done January 2018 revealed 50% diag, 30-50% prox RCA and 30-40% ostial RCA. Most recent stress test done January 2019 revealing no ischemia or infarct. CHF, ischemic cardiomyopathy, most recent 2D Echo done March 2019 revealed EF 45%, grade 1 diastolic dysfunction, aortic valve sclerosis without stenosis. 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 Follows with neurology in . 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 Weber History of thoracic aortic dissection, treated conservatively in [place] in the past, continue to monitor Labile hypertension with episode of hypotension, blood pressure improved, no further episodes of hypotension, continue to monitor. Hyperlipidemia, monitor lipids CKD- continue to monitor renal function Elevated LFT's- trending down, continue to monitor. Generalized weakness and debility. Clinical Quality Measures DVT/VTE Risk/Contraindication: Risk Factor Score Per Nursin RFS Level Per Nursing on Admit: 2=Moderate MARSHA GOMEZ Sep 25, 2019 08:28 POS
[2019-09-25] MEDS: PANTOPRAZOLE 40 MG (PROTONIX) TAB PO SCH (08:39)
[2019-09-25] MEDS: ALLOPURINOL 100 MG (ZYLOPRIM) TAB PO SCH (08:39)
[2019-09-25] MEDS: ASPIRIN E.C. 325 MG (ECOTRIN) TABLET PO SCH (08:39)
[2019-09-25] MEDS: LORATADINE (CLARITIN) 10 MG TAB PO SCH (08:39)
[2019-09-25] MEDS: SENNA W/DOCUSATE (SENOKOT S) TABLET PO SCH ×2 (08:39→20:49)
[2019-09-25] MEDS: AMIODARONE 200 MG (CORDARONE) TAB PO SCH ×2 (08:39→20:49)
[2019-09-25] MEDS: rOPINIRole 0.25 MG (REQUIP) TAB PO SCH ×2 (08:39→20:49)
[2019-09-25] MEDS: FINASTERIDE (PROSCAR) 5 MG TAB PO SCH (08:39)
--- NOTE | 2019-09-25 08:54 | Progress Note - Urology ---
Progress Note-Urology Progress Notes/Assess & Plan Progress/Assessment & Plan FORSKIN LOOK GOOD. NO PARAPHIMOSIS. WE WILL SEE PRN Final Diagnosis PARAPHIMOSIS (RESOLVED) ZEYNEP WALKER MD Sep 25, 2019 08:54 POS
[2019-09-25] MEDS: POLYETHYLENE GLYCOL 17 GM (MIRALAX) PACK PO SCH ×2 (09:03→20:57)
[2019-09-25] MEDS: HYDROCORTISONE 1% CREAM 30 GM TUBE TOP SCH ×2 (09:03→20:50)
--- NOTE | 2019-09-25 09:53 | PM&R Progress Note ---
Subjective HPI/CC On Admission Date Seen by Provider: Sep 25, 2019 Time Seen by Provider: 08:30 Subjective/Events-last exam Pt doing pretty well. Bowel movement this morning. Mueller remains in place. No fever. Denies any significant new issues. Hard of hearing and baseline confusion precludes more details. Checked meds and labs Reviewed therapy notes Conferred with parts counterperson of Systems General: Fatigue Neurological: Weakness, Numbness, Incoordination, Confusion Objective Exam Vital Signs Vital Signs Date Time Temp Pulse Resp B/P (MAP) Pulse Ox O2 Delivery O2 Flow Rate FiO2 09/25/19 20:00 Room Air 09/25/19 18:41 69 09/25/19 15:48 37.2 14 121/75 (53) 93 3.00 Capillary Refill : General Appearance: No Apparent Distress, WD/WN, Chronically ill HEENT: PERRL/EOMI, TMs Normal, Normal ENT Inspection, Pharynx Normal, Moist Mucous Membranes Neck: Full Range of Motion, Normal Inspection, Non Tender, Supple, Carotid Bruit Respiratory: Chest Non Tender, Lungs Clear, Normal Breath Sounds, No Accessory Muscle Use, No Respiratory Distress Cardiovascular: Regular Rate, Rhythm, No Gallop, No JVD, Normal Peripheral Pulses, Systolic Murmur, Gallop/S3 Gastrointestinal: Normal Bowel Sounds, No Organomegaly, No Pulsatile Mass, Non Tender, Soft Back: Normal Inspection, No CVA Tenderness, No Vertebral Tenderness Extremity: Normal Capillary Refill, Normal Inspection, Normal Range of Motion, Non Tender, No Calf Tenderness, No Pedal Edema Neurologic/Psychiatric: Alert, county treasurer II-XII Norm as Tested, Depressed Affect, Disoriented, Motor Weakness (severe 4/5 legs and arms) Skin: Normal Color, Warm/Dry Lymphatic: No Adenopathy Results/Procedures Lab Patient resulted labs reviewed. FIM Transfers Therapy Code Descriptions/Definitions Functional [place] Measure: 0=Not Assessed/NA 4=Minimal Assistance 1=Total Assistance 5=Supervision or Setup 2=Maximal Assistance 6=Modified [place] 3=Moderate Assistance 7=Complete IndependenceSCALE: Activities may be completed with or without assistive devices. 8-Vwcrbxbrrc-htgdizk completes the activity by him/herself with no assistance from a helper. 5-Set-up or Clean-up Assistance-helper sets up or cleans up; patient completes activity. [place] assists only prior to or following the activity. 4-Supervision or Touching Assistance-helper provides verbal cues and/or touching/steadying and/or contact guard assistance as patient completes activity. Assistance may be provided throughout the activity or intermittently. 3-Partial/Moderate Assistance-helper does LESS THAN HALF the effort. [place] lifts, holds or supports trunk or limbs, but provides less than half the effort. 2-Substantial/Maximal Assistance-helper does MORE THAN HALF the effort. [place] lifts or holds trunk or limbs and provides more than half the effort. 1-Fujjaecey-phrdpf does ALL the effort. Patient does none of the effort to complete the activity. Or, the assistance of 2 or more helpers is required for the patient to complete the activity. If activity was not attempted, code reason: 7-Patient Refused. 9-Not Applicable-not attempted and the patient did not perform the activity before the current illness, exacerbation or injury. 10-Not Attempted due to Environmental Limitations-(lack of equipment, weather restraints, etc.). 88-Not Attempted due to Medical Conditions or Safety Concerns. Roll Left to Right (QC): 6 Sit to Lying (QC): 6 Sit to Stand (QC): 5 Chair/Lgz-px-Qimtd Xfer(QC): 5 Car Transfer (QC): 3 Gait Training Does the Patient Walk?: Yes Distance: 5 Walk 10 feet (QC): 4 Walk 50 ft with 2 Turns(QC): 4 Walk 150 ft (QC): 4 Walking 10ft/uneven surface-QC: 3 Gait Persons Needed: 1 Gait Assistive Device: FWW Wheelchair Training Does the Pt Use a Wheelchair?: Yes Wheel 50 ft with 2 turns (QC): 4 Wheel 150 ft (QC): 9 Type of Wheelchair: Manual Stair Training 1 Step (curb) (QC): 3 4 Steps (QC): 88 12 Steps (QC): 9 Balance Picking up an Object (QC): 6 (from sitting position) ADL-Treatment Eating (QC): 6 Oral Hygiene (QC): 7 Shower/Bathe Self (QC): 4 Upper Body Dressing (QC): 5 Lower Body Dressing (QC): 3 On/Off Footwear (QC): 6 Toileting Hygiene (QC): 2 (Pt TD with bottom hygiene on this date due to c/o fatigue and limited strength.) Toilet Transfer (QC): 7 Assessment/Plan Assessment and Plan Assess & Plan/Chief Complaint Assessment: Intraparenchymal hematoma Falls Confusion 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 Extensive CAD AF [place] edema-improved with hydrocortisone cream Plan: Eval NH options for slower recovery if he fails this program over the weekend IRF protocol in meantime Monitor orthostasis Prognosis guarded at this time Dr Lovett consultation is appreciated Patient improved but overall prognosis guarded (1) Intraparenchymal hematoma of brain (2) Orthostasis (3) COPD (chronic obstructive pulmonary disease) (4) Atrial fibrillation (5) CAD (coronary artery disease) (6) NPH (normal pressure hydrocephalus) (7) Renal insufficiency (8) Vertigo (9) Weakness (10) PVD (peripheral vascular disease) (11) Cognitive deficits (12) SYL (obstructive sleep apnea) (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 (14) Brain aneurysm (15) Ischemic cardiomyopathy (16) Gastric reflux (17) Renal lithiasis (18) Intracranial shunt (19) Hx of CABG (20) S/P AAA repair SOLO MENDENHALL DO Sep 25, 2019 09:53 POS
--- NOTE | 2019-09-25 10:55 | Occupational Ther Daily Note ---
OT Current Status-Daily Note Subjective Pt in bed, agrees to therapy. No reports of pain, but states he is fatigued after shower. ADL-Treatment Pt in bed, requests shower this morning. Supine to sit with SBA. Gait to shower with FWW for balance. Transfer to shower bench with CGA for balance. Pt doffed shirt without assist. Doffed underwear and socks with supervision. Seated bathing completed using hand held shower. Upper body bathing completed with SBA. Pt able to wash bilateral upper legs. Leans side to side to wash buttocks. Min assist to wash lower legs and feet. Dressing tasks completed seated in w/c. Don pullover shirt with set up. Assist to thread gonzalez through underwear and pants. Pt then able to thread bilateral LE into pants. Stood with min assist for balance during pant hike. Pt dons socks with SBA. Pt completed oral care with set up while seated at sink. Pt then requests to lay down, stating he is fatigued after shower. Pt transferred to bed and completed sit to supine with SBA. Pt resting in bed with needs met after session. Therapy Code Descriptions/Definitions Functional [place] Measure: 0=Not Assessed/NA 4=Minimal Assistance 1=Total Assistance 5=Supervision or Setup 2=Maximal Assistance 6=Modified [place] 3=Moderate Assistance 7=Complete IndependenceSCALE: Activities may be completed with or without assistive devices. 9-Gffspmvpci-kwnwqgt completes the activity by him/herself with no assistance from a helper. 5-Set-up or Clean-up Assistance-helper sets up or cleans up; patient completes activity. [place] assists only prior to or following the activity. 4-Supervision or Touching Assistance-helper provides verbal cues and/or touching/steadying and/or contact guard assistance as patient completes activity. Assistance may be provided throughout the activity or intermittently. 3-Partial/Moderate Assistance-helper does LESS THAN HALF the effort. [place] lifts, holds or supports trunk or limbs, but provides less than half the effort. 2-Substantial/Maximal Assistance-helper does MORE THAN HALF the effort. [place] lifts or holds trunk or limbs and provides more than half the effort. 6-Uwxhodcob-sdzwdu does ALL the effort. Patient does none of the effort to complete the activity. Or, the assistance of 2 or more helpers is required for the patient to complete the activity. If activity was not attempted, code reason: 7-Patient Refused. 9-Not Applicable-not attempted and the patient did not perform the activity before the current illness, exacerbation or injury. 10-Not Attempted due to Environmental Limitations-(lack of equipment, weather restraints, etc.). 88-Not Attempted due to Medical Conditions or Safety Concerns. Oral Hygiene (QC): 5 Shower/Bathe Self (QC): 3 Upper Body Dressing (QC): 5 Lower Body Dressing (QC): 3 OT Short Term Goals Short Term Goals Eatin Oral hygiene: 6 Upper body dressin Lower body dressin (met) OT Diamond Setter Goals Correction Goals Time Frame: Oct 02, 2019 Eating (QC): 6 (met) Oral Hygiene (QC): 6 (met) Toileting Hygiene (QC): 6 Shower/Bathe Self (QC): 4 Upper Body Dressing (QC): 6 Lower Body Dressing (QC): 6 On/Off Footwear (QC): 6 Additional Goals: 1-Demonstrate ADL Tasks, 2-Verbalize Understanding, 3- ImproveStrength/Ronit 1=Demonstrate adherence to instructed precautions during ADL tasks. 2=Patient will verbalize/demonstrate understanding of assistive devices/omid fications for ADL. 3=Patient will improve strength/tolerance for activity to enable patient to perform ADL's. OT Education/Plan Discharge Recommendations Plan/Recommendations: Continue POC Treatment Plan/Plan of Care Patient would benefit from OT for education, treatment and training to promote independence in ADL's, mobility, safety and/or upper extremity function for ADL's. Plan of Care: ADL Retraining, Caregiver Training, Functional Mobility, Group Exercise/Act as Ind, UE Funct Exercise/Act Treatment Duration: Oct 02, 2019 Frequency: At least 5 of 7 days/Wk (IRF) Estimated Hrs Per Day: 1.5 hours per day Agreement: Yes Rehab Potential: Fair Time/GCodes Start Time: 09:30 Stop Time: 10:30 Total Time Billed (hr/min): 60 Billed Treatment Time 1 visit, ADLx4(60minutes) RICHIE MEJIA OT Sep 25, 2019 10:55 POS
--- NOTE | 2019-09-25 11:52 | Physical Therapy Daily Note ---
PT Daily Note-Current Subjective Pt laying asleep Supine in bed upon arrival. Pt agrees to PT despite reporting fatigue from OT (shower). Pain Location: No Pain Reported Mental Status Patient Orientation: Person, Place, Situation Attachments: Mueller Catheter, Other-See Comments (B- Hearing aids ) [place], must speak loud Transfers SCALE: Activities may be completed with or without assistive devices. 8-Jijexgdbbo-drtbxqv completes the activity by him/herself with no assistance from a helper. 5-Set-up or Clean-up Assistance-helper sets up or cleans up; patient completes activity. [place] assists only prior to or following the activity. 4-Supervision or Touching Assistance-helper provides verbal cues and/or touching/steadying and/or contact guard assistance as patient completes activity. Assistance may be provided throughout the activity or intermittently. 3-Partial/Moderate Assistance-helper does LESS THAN HALF the effort. [place] lifts, holds or supports trunk or limbs, but provides less than half the effort. 2-Substantial/Maximal Assistance-helper does MORE THAN HALF the effort. [place] lifts or holds trunk or limbs and provides more than half the effort. 8-Vrfmfuspi-cjzngm does ALL the effort. Patient does none of the effort to complete the activity. Or, the assistance of 2 or more helpers is required for the patient to complete the activity. If activity was not attempted, code reason: 7-Patient Refused. 9-Not Applicable-not attempted and the patient did not perform the activity before the current illness, exacerbation or injury. 10-Not Attempted due to Environmental Limitations-(lack of equipment, weather restraints, etc.). 88-Not Attempted due to Medical Conditions or Safety Concerns. Sit to Lying (QC): 5 Lying to Sitting/Side of Bed(Q: 5 Sit to Stand (QC): 5 Weight Bearing Full Weight Bearing Full Weight Bearing Gait Training Does the Patient Walk?: Yes Distance: 75' x2 Walk 10 feet (QC): 5 Walk 50 ft with 2 Turns(QC): 5 Walk 150 ft (QC): 5 Gait Persons Needed: 1 Gait Assistive Device: FWW Exercises Seated Therapy Exercises: Ankle pumps, Long arc quads, Hip flexion, Kicking activity, Hip abd/add Seated Reps: 15 NuStep Minutes: 15 NuStep Workload: 6 Treatments Pt transfers from Supine to EOB to Standing. Pt ambulates using FWW at close SBA. Pt uses NuStep for 15m at WL 6 then completes Seated Ex. Pt returns to room to rest Supine in bed. Pt has all needs met, including call light in hand. Assessment Current Status: Good Progress Pt continues to stay motivated, working hard to get home. PT Custodial Goals Assembly Hand Goals PT Assembly Hand Goals Time Frame: Oct 12, 2019 Roll Left & Right (QC): 6 Sit to Lying (QC): 6 Lying-Sitting on Side/Bed(QC): 6 Sit to Stand (QC): 6 Chair/Eod-cv-Mchmf Xfer(QC): 6 Toilet Transfer (QC): 6 Car Transfer (QC): 6 Does the Patient Walk: Yes Walk 10 feet (QC): 6 Walk 50ft with 2 Turns (QC): 6 Walk 150 ft (QC): 6 Walking 10ft on Uneven Surface: 6 1 Step (curb) (QC): 6 4 Steps (QC): 9 12 Steps (QC): 9 Picking up an Object (QC): 6 Does the Pt use WC or Scooter?: No Type: N/A Type: N/A PT Plan Problem List Problem List: Activity Tolerance Treatment/Plan Treatment Plan: Continue Plan of Care Treatment Plan: Bed Mobility, Education, Functional Activity Ronit, Functional Strength, Gait, Safety, Therapeutic Exercise, Transfers Treatment Duration: Oct 12, 2019 Frequency: At least 5 of 7 days/Wk (IRF) Estimated Hrs Per Day: 1.5 hours per day Patient and/or Family Agrees t: Yes Safety Risks/Education Patient Education: Gait Training, Correct Positioning, Safety Issues Teaching Recipient: Patient Teaching Methods: Discussion Response to Teaching: Verbalize Understanding Time/GCodes Time In: 1045 Time Out: 1130 Total Billed Treatment Time: 45 Total Billed Treatment 1, GT (15m), EX (20m) & FA (10m) RAFI GARCIA SEO MANAGER Sep 25, 2019 11:52 POS
--- NOTE | 2019-09-25 13:15 | Occupational Ther Daily Note ---
OT Current Status-Daily Note Subjective Pt alert, lying in bed. present in room. Pt states that he is worn out today from the morning. Pt agrees to therapy. Mental Status/Objective Patient Orientation: Person, Place, Time, Situation ADL-Treatment Footwear (QC) 6- Pt able to complete donning/doffing socks by self. Therapy Code Descriptions/Definitions Functional [place] Measure: 0=Not Assessed/NA 4=Minimal Assistance 1=Total Assistance 5=Supervision or Setup 2=Maximal Assistance 6=Modified [place] 3=Moderate Assistance 7=Complete IndependenceSCALE: Activities may be completed with or without assistive devices. 9-Qvwyxfmuql-erpoglt completes the activity by him/herself with no assistance from a helper. 5-Set-up or Clean-up Assistance-helper sets up or cleans up; patient completes activity. [place] assists only prior to or following the activity. 4-Supervision or Touching Assistance-helper provides verbal cues and/or touching/steadying and/or contact guard assistance as patient completes activity. Assistance may be provided throughout the activity or intermittently. 3-Partial/Moderate Assistance-helper does LESS THAN HALF the effort. [place] lifts, holds or supports trunk or limbs, but provides less than half the effort. 2-Substantial/Maximal Assistance-helper does MORE THAN HALF the effort. [place] l ifts or holds trunk or limbs and provides more than half the effort. 2-Lrsepwacd-ooqhvw does ALL the effort. Patient does none of the effort to complete the activity. Or, the assistance of 2 or more helpers is required for the patient to complete the activity. If activity was not attempted, code reason: 7-Patient Refused. 9-Not Applicable-not attempted and the patient did not perform the activity before the current illness, exacerbation or injury. 10-Not Attempted due to Environmental Limitations-(lack of equipment, weather restraints, etc.). 88-Not Attempted due to Medical Conditions or Safety Concerns. Other Treatment When pt stood from EOB, stated that he was dizzy. Took a small break in standing then pt cleared. Pt ambulated to therapy gym to complete an UE strengthening and fine motor task to increase activity tolerance and strength. Pt tolerated task well. After therapy, pt lying in bed with call light/phone in reach. All needs met in room. OT Short Term Goals Short Term Goals Eatin Oral hygiene: 6 Upper body dressin Lower body dressin (met) OT Dry Cell Assembly Supervisor Goals Dry Cell Assembly Supervisor Goals Time Frame: Oct 02, 2019 Eating (QC): 6 (met) Oral Hygiene (QC): 6 (met) Toileting Hygiene (QC): 6 Shower/Bathe Self (QC): 4 Upper Body Dressing (QC): 6 Lower Body Dressing (QC): 6 On/Off Footwear (QC): 6 Additional Goals: 1-Demonstrate ADL Tasks, 2-Verbalize Understanding, 3- ImproveStrength/Ronit 1=Demonstrate adherence to instructed precautions during ADL tasks. 2=Patient will verbalize/demonstrate understanding of assistive devices/mod ifications for ADL. 3=Patient will improve strength/tolerance for activity to enable patient to perform ADL's. OT Education/Plan Problem List/Assessment Assessment: Decreased Activ Tolerance, Decreased UE Strength Discharge Recommendations Plan/Recommendations: Continue POC Treatment Plan/Plan of Care Patient would benefit from OT for education, treatment and training to promote independence in ADL's, mobility, safety and/or upper extremity function for ADL's. Plan of Care: ADL Retraining, Caregiver Training, Functional Mobility, Group Exercise/Act as Ind, UE Funct Exercise/Act Treatment Duration: Oct 02, 2019 Frequency: At least 5 of 7 days/Wk (IRF) Estimated Hrs Per Day: 1.5 hours per day Agreement: Yes Rehab Potential: Fair Time/GCodes Start Time: 12:45 Stop Time: 13:00 Total Time Billed (hr/min): 15 Billed Treatment Time 1 visit-FA 1 (15 min) LUBA MCCARTHY Sep 25, 2019 13:15 POS
--- NOTE | 2019-09-25 14:45 | Speech Therapy Daily Note ---
Speech Daily Progress Note Subjective Date Seen by Provider: Sep 25, 2019 Time Seen by Provider: 00:30 Patient was resting in bed following his PT session. Objective Patient completed a series of safety awareness tasks using cards "What's wrong with this picture?" with 85% given 20% cues. Assessment Assessment Current Status: Good Progress Treatment Plan Continue Plan of Care Speech Short Term Goals Short Term Goals Short Term Goals 1) The patient will complete memory tasks related to his daily needs at 90% or greater with minimal cues. 2) The patient will complete problem solving tasks related to his daily needs at 90% or greater with minimal cues. 3) The patient will complete safety awareness tasks related to his daily needs at 90% or greater with minimal cues. 4) The patient will tolerate least restrictive diet without s/s of aspiration at 90%. 5) The patient will utilize compensatory strategies for safe oral intake at 90% with minimal cues. Speech Residential Goals Medicine Aide Goals Patient will improve cognitive-communication abilities in order to complete daily tasks with minimal assist. Patient will maintain adequate nutrition/hydration via safe effective swallow function. Speech-Plan Patient/Family Goals Patient/Family Goals: Patient plans on returning home with his family post rehab. Treatment Plan Speech Therapy Treatment Plan: Continue Plan of Care The patient continues to ask when he is going to go home. Treatment Duration: Sep 28, 2019 Frequency: 5 times per week Estimated Hrs Per Day: .5 hour per day Rehab Potential: Fair Barriers to Learning: Patient has cognitive deficits, however these have improved. Pt/Family Agrees to Plan: Yes Safety Risks/Education Teaching Recipient: Patient, Significant Other Teaching Methods: Demonstration, Discussion Response to Teaching: Verbalize Understanding, Return Demonstration Education Topics Provided: Continued safety within his room Time Speech Therapy Time In: 11:30 Speech Therapy Time Out: 12:00 Total Billed Time: 30 Billed Treatment Time 1YUDITH BETHANIA ST Sep 25, 2019 14:45 POS
--- NOTE | 2019-09-25 15:23 | Physical Therapy Daily Note ---
PT Daily Note-Current Subjective Pt laying Supine in bed upon arrival. Pt agrees to PT. Pain Location: No Pain Reported Mental Status Patient Orientation: Person, Place, Situation Attachments: Mueller Catheter Transfers SCALE: Activities may be completed with or without assistive devices. 1-Qggvhnmmur-ixhzwnt completes the activity by him/herself with no assistance from a helper. 5-Set-up or Clean-up Assistance-helper sets up or cleans up; patient completes activity. [place] assists only prior to or following the activity. 4-Supervision or Touching Assistance-helper provides verbal cues and/or touching/steadying and/or contact guard assistance as patient completes activity. Assistance may be provided throughout the activity or intermittently. 3-Partial/Moderate Assistance-helper does LESS THAN HALF the effort. [place] lifts, holds or supports trunk or limbs, but provides less than half the effort. 2-Substantial/Maximal Assistance-helper does MORE THAN HALF the effort. [place] lifts or holds trunk or limbs and provides more than half the effort. 4-Qiwgbbxbj-sejqrd does ALL the effort. Patient does none of the effort to complete the activity. Or, the assistance of 2 or more helpers is required for the patient to complete the activity. If activity was not attempted, code reason: 7-Patient Refused. 9-Not Applicable-not attempted and the patient did not perform the activity before the current illness, exacerbation or injury. 10-Not Attempted due to Environmental Limitations-(lack of equipment, weather restraints, etc.). 88-Not Attempted due to Medical Conditions or Safety Concerns. Sit to Lying (QC): 5 Lying to Sitting/Side of Bed(Q: 5 Sit to Stand (QC): 5 Weight Bearing Full Weight Bearing Full Weight Bearing Exercises Supine Ex: Ankle pumps, Quad Set, Straight leg raise, Hip abd/add Supine Reps: 15 Treatments Pt completes Supine Ex in bed before needing to use restroom. Pt transfers from Supine to EOB to Standing. Pt ambulates in restroom. Pt has all needs met. Assessment Current Status: Good Progress Pt continues to gain strength although urine remains dark, Nurse notified. PT Fpc Goals Fpc Goals PT Fpc Goals Time Frame: Oct 12, 2019 Roll Left & Right (QC): 6 Sit to Lying (QC): 6 Lying-Sitting on Side/Bed(QC): 6 Sit to Stand (QC): 6 Chair/Ums-fw-Lzzew Xfer(QC): 6 Toilet Transfer (QC): 6 Car Transfer (QC): 6 Does the Patient Walk: Yes Walk 10 feet (QC): 6 Walk 50ft with 2 Turns (QC): 6 Walk 150 ft (QC): 6 Walking 10ft on Uneven Surface: 6 1 Step (curb) (QC): 6 4 Steps (QC): 9 12 Steps (QC): 9 Picking up an Object (QC): 6 Does the Pt use WC or Scooter?: No Type: N/A Type: N/A PT Plan Problem List Problem List: Activity Tolerance Treatment/Plan Treatment Plan: Continue Plan of Care Treatment Plan: Bed Mobility, Education, Functional Activity Ronit, Functional Strength, Gait, Safety, Therapeutic Exercise, Transfers Treatment Duration: Oct 12, 2019 Frequency: At least 5 of 7 days/Wk (IRF) Estimated Hrs Per Day: 1.5 hours per day Patient and/or Family Agrees t: Yes Safety Risks/Education Patient Education: Gait Training, Transfer Techniques, Correct Positioning, Safety Issues Teaching Recipient: Patient Teaching Methods: Discussion Response to Teaching: Verbalize Understanding Time/GCodes Time In: 1430 Time Out: 1500 Total Billed Treatment Time: 30 Total Billed Treatment 1, EX (20m) & FA (10m) RAFI GARCIA PTA Sep 25, 2019 15:23 POS
[2019-09-25 15:48] VITALS: BP 121/75
--- NOTE | 2019-09-25 15:58 | Cardiology Progress Note ---
Subjective Date Seen by Provider: Sep 25, 2019 Time Seen by Provider: 15:56 Subjective/Events-last exam Patient was seen at bedside, laying down comfortably, denied any chest pain, no palpitation Review of Systems General: No Chills, No Night Sweats; Fatigue, Malaise; No Appetite, No Other HEENT: No Head Aches, No Visual Changes, No Eye Pain, No Ear Pain, No Dysphasia, No Sinus Congestion, No Post Nasal Drip, No Sore Throat, No Other Pulmonary: Dyspnea; No Cough, No Pleuritic Chest Pain, No Other Cardiovascular: No: Chest Pain, Palpitations, Orthopnea, Paroxysmal Noc. Dyspnea, Edema, Lt Headedness, Other Objective-Cardiology Exam Last Set of Vital Signs Vital Signs 09/25/19 15:48 Temp 37.2 Pulse 61 Resp 14 B/P (MAP) 121/75 (90) Pulse Ox 93 O2 Delivery Nasal Cannula O2 Flow Rate 3.00 Capillary Refill : I&O Intake and Output 09/25/19 00:00 Intake Total 440 ml Output Total 825 ml Balance -385 ml Intake Oral 440 ml Output Urine Total 825 ml General: Alert, Oriented X3, Cooperative, No Acute Distress HEENT: Atraumatic, PERRLA Neck: Supple Lungs: Clear to Auscultation, Normal Air Movement Heart: Regular Rate, Normal S1, Normal S2, Other ( II/ CONNIE) Abdomen: Normal Bowel Sounds, Soft Extremities: No Clubbing, No Edema Skin: No Breakdown Neuro: Normal Speech, Cranial Nerves 3-12 NL (COCHLEAR IMPLANT) Psych/Mental Status: Mental Status NL, Mood NL A/P-Cardiology Admission Diagnosis Acute CVA Intracranial bleed Paroxysmal atrial fibrillation Hypertension Assessment/Plan Status post intracranial bleed, left occipital intraparenchymal and left posterior subdural hemorrhage, was evaluated and treated by neurology, currently recovering and receiving physical therapy and occupational therapy. Managed by primary care team Hypotensive episode, had multiple episode of hypotension while in , family reporting questionable history of hypotension in the past, better at this time. Continue to monitor Paroxysmal atrial fibrillation, currently off oral anticoagulation due to intracranial bleed. Was maintained on Coumadin. Maintained on amiodarone. Continue to hold Coumadin Coronary artery disease multiple interventions in the past done by Dr. Pandey reporting history of 10 stents in the past, 5 balloon angioplasties. Reporting last intervention done 5 years ago. Last LHC done January 2018 revealed 50% diag, 30-50% prox RCA and 30-40% ostial RCA. Most recent stress test done January 2019 revealing no ischemia or infarct. CHF, ischemic cardiomyopathy, most recent 2D Echo done March 2019 revealed EF 45%, grade 1 diastolic dysfunction, aortic valve sclerosis without stenosis. 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 Follows with neurology in . 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 Weber History of thoracic aortic dissection, treated conservatively in [place] in the past, continue to monitor Labile hypertension with episode of hypotension, blood pressure improved, no further episodes of hypotension, continue to monitor. Hyperlipidemia, monitor lipids CKD- continue to monitor renal function Elevated LFT's- trending down, continue to monitor. Generalized weakness and debility. Clinical Quality Measures DVT/VTE Risk/Contraindication: Risk Factor Score Per Nursin RFS Level Per Nursing on Admit: 2=Moderate GABBY ALCANTAR MD Sep 25, 2019 3:58 pm POS
[2019-09-26 06:16] VITALS: BP 147/83
[2019-09-26] MEDS: VITAMIN D3 1,000 UNITS (CHOLECALCIFEROL) TABLET PO SCH (06:18)
[2019-09-26] MEDS: MULTIVIT W/MINERALS TAB (THERAGRAN M) PO SCH (06:18)
--- NOTE | 2019-09-26 06:49 | Progress Note ---
[facility] 09/26/19 0649: Progress Note TIme: 0740 Subjective: Nurses report dark urine History was limited due to patients hearing Patient states that he has no complaints Denies pain Paraphimosis is resolving per Dr. Lovett Patient states that he is ready to go home Objective: General: Alert & Oriented x3, No acute distress, W/N W/D, CV: RRR, No murmurs, No edema, Radial pulses 2/4 bilaterally Resp: CTAB, No accessory muscle use,, no respiratory distress Assessment: Patient is doing well in therapy Patient needs to increase fluid intake Await sensitivity cultures Plan: Increased fluids COntinue PT, OT Barriers: - Education on nutrition and health. - Continue Strength and endurance Discharge: Patient will be discharged tomorrow. Will be followed outpatient with carlos. Patient will need home health for PT and OT and will be going back with . DENEEN MENDENHALL DO 09/26/19 2907: Supervisory-Addendum Brief Verification & Attestation Participated in pt care: history, MDM, physical Personally performed: exam, history, MDM, supervision of care Care discussed with: Medical Student Procedures: n/a Results interpretation: Verified all documentation Verification and Attestation of Medical Student E/M Service A medical student performed and documented this service in my presence. I reviewed and verified all information documented by the medical student and made modifications to such information, when appropriate. I personally performed the physical exam and medical decision making. Deneen Mendenhall, Sep 26, 2019,21:06 [facility] Sep 26, 2019 06:49 DENEEN ANTONIO DO Sep 26, 2019 21:07 POS
--- NOTE | 2019-09-26 08:37 | Cardiology Progress Note ---
Subjective Date Seen by Provider: Sep 26, 2019 Time Seen by Provider: 08:35 Subjective/Events-last exam Patient asleep in bed, easily awakens to answer questions. Denies any chest pain or dyspnea. Objective-Cardiology Exam Last Set of Vital Signs Vital Signs 09/25/19 09/26/19 09/26/19 15:48 06:16 07:00 Temp 37.0 Pulse 60 Resp 18 B/P (MAP) 147/83 (104) Pulse Ox 95 O2 Delivery NIV CPAP O2 Flow Rate 3.00 Capillary Refill : I&O Intake and Output 09/26/19 00:00 Intake Total 780 ml Output Total 800 ml Balance -20 ml Intake Oral 780 ml Output Urine Total 800 ml # Bowel Movements 1 General: Alert, Oriented X3, Cooperative, No Acute Distress HEENT: Atraumatic, PERRLA Neck: Supple Lungs: Clear to Auscultation, Normal Air Movement Heart: Regular Rate, Normal S1, Normal S2, Other ( II/ CONNIE) Abdomen: Normal Bowel Sounds, Soft Extremities: No Clubbing, No Edema Skin: No Breakdown Neuro: Normal Speech, Cranial Nerves 3-12 NL (COCHLEAR IMPLANT) Psych/Mental Status: Mental Status NL, Mood NL A/P-Cardiology Admission Diagnosis Acute CVA Intracranial bleed Paroxysmal atrial fibrillation Hypertension Assessment/Plan Status post intracranial bleed, left occipital intraparenchymal and left posterior subdural hemorrhage, was evaluated and treated by neurology, currently recovering and receiving physical therapy and occupational therapy. Managed by primary care team Hypotensive episode, had multiple episode of hypotension while in , family reporting questionable history of hypotension in the past, better at this time. Continue to monitor Paroxysmal atrial fibrillation, currently off oral anticoagulation due to intracranial bleed. Was maintained on Coumadin. Maintained on amiodarone. Continue to hold Coumadin Coronary artery disease multiple interventions in the past done by Dr. Pandey reporting history of 10 stents in the past, 5 balloon angioplasties. Reporting last intervention done 5 years ago. Last LHC done January 2018 revealed 50% diag, 30-50% prox RCA and 30-40% ostial RCA. Most recent stress test done January 2019 revealing no ischemia or infarct. CHF, ischemic cardiomyopathy, most recent 2D Echo done March 2019 revealed EF 45%, grade 1 diastolic dysfunction, aortic valve sclerosis without stenosis. 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 Follows with neurology in . 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 Weber History of thoracic aortic dissection, treated conservatively in [place] in the past, continue to monitor Labile hypertension with episode of hypotension, blood pressure improved, no further episodes of hypotension, continue to monitor. Hyperlipidemia, monitor lipids CKD- continue to monitor renal function Elevated LFT's- trending down, continue to monitor. Generalized weakness and debility. Clinical Quality Measures DVT/VTE Risk/Contraindication: Risk Factor Score Per Nursin RFS Level Per Nursing on Admit: 2=Moderate MARSHA GOMEZ Sep 26, 2019 08:37 POS
[2019-09-26] MEDS: ASPIRIN E.C. 325 MG (ECOTRIN) TABLET PO SCH (08:56)
[2019-09-26] MEDS: FINASTERIDE (PROSCAR) 5 MG TAB PO SCH (08:56)
[2019-09-26] MEDS: AMIODARONE 200 MG (CORDARONE) TAB PO SCH ×2 (08:56→20:54)
[2019-09-26] MEDS: LORATADINE (CLARITIN) 10 MG TAB PO SCH (08:56)
[2019-09-26] MEDS: SENNA W/DOCUSATE (SENOKOT S) TABLET PO SCH ×2 (08:56→20:54)
[2019-09-26] MEDS: rOPINIRole 0.25 MG (REQUIP) TAB PO SCH ×2 (08:56→20:54)
[2019-09-26] MEDS: PANTOPRAZOLE 40 MG (PROTONIX) TAB PO SCH (08:58)
[2019-09-26] MEDS: ALLOPURINOL 100 MG (ZYLOPRIM) TAB PO SCH (08:58)
[2019-09-26] MEDS: HYDROCORTISONE 1% CREAM 30 GM TUBE TOP SCH ×2 (09:00→21:00)
[2019-09-26] MEDS: POLYETHYLENE GLYCOL 17 GM (MIRALAX) PACK PO SCH ×2 (09:16→20:57)
--- NOTE | 2019-09-26 09:54 | PM&R Progress Note ---
Subjective HPI/CC On Admission Date Seen by Provider: Sep 26, 2019 Time Seen by Provider: 08:45 Subjective/Events-last exam He tugged on the gonzalez catheter and now it has a little bit of hematuria Concentrated urine and the family reports he only drinks coke at home so will encourage water intake as well as coke Dr. Lovett essentially signed off the foreskin edema is now resolved DC planned for tomorrow but after rounds the family decided he needs to go to a care home after all Supervision with all mobility and he goes really fast but really unable to modify that practice of the pt Overall doing well Checked meds and labs Reviewed therapy notes Conferred with engineer first assistant of Systems General: Fatigue Neurological: Confusion Objective Exam Vital Signs Vital Signs Date Time Temp Pulse Resp B/P (MAP) Pulse Ox O2 Delivery O2 Flow Rate FiO2 09/26/19 18:17 36.8 63 16 132/74 (93) 95 Room Air 09/25/19 15:48 3.00 Capillary Refill : General Appearance: No Apparent Distress, WD/WN, Chronically ill HEENT: PERRL/EOMI, TMs Normal, Normal ENT Inspection, Pharynx Normal, Moist Mucous Membranes Neck: Full Range of Motion, Normal Inspection, Non Tender, Supple, Carotid Bruit Respiratory: Chest Non Tender, Lungs Clear, Normal Breath Sounds, No Accessory Muscle Use, No Respiratory Distress Cardiovascular: Regular Rate, Rhythm, No Gallop, No JVD, Normal Peripheral Pulses, Systolic Murmur, Gallop/S3 Gastrointestinal: Normal Bowel Sounds, No Organomegaly, No Pulsatile Mass, Non Tender, Soft Back: Normal Inspection, No CVA Tenderness, No Vertebral Tenderness Extremity: Normal Capillary Refill, Normal Inspection, Normal Range of Motion, Non Tender, No Calf Tenderness, No Pedal Edema Neurologic/Psychiatric: Alert, mixer and scaler II-XII Norm as Tested, Depressed Affect, Disoriented, Motor Weakness (severe 4/5 legs and arms) Skin: Normal Color, Warm/Dry Lymphatic: No Adenopathy Results/Procedures Lab Patient resulted labs reviewed. FIM Transfers Therapy Code Descriptions/Definitions Functional [place] Measure: 0=Not Assessed/NA 4=Minimal Assistance 1=Total Assistance 5=Supervision or Setup 2=Maximal Assistance 6=Modified [place] 3=Moderate Assistance 7=Complete IndependenceSCALE: Activities may be completed with or without assistive devices. 8-Jmdiuyyznk-krovxhn completes the activity by him/herself with no assistance from a helper. 5-Set-up or Clean-up Assistance-helper sets up or cleans up; patient completes activity. [place] assists only prior to or following the activity. 4-Supervision or Touching Assistance-helper provides verbal cues and/or touching/steadying and/or contact guard assistance as patient completes activity. Assistance may be provided throughout the activity or intermittently. 3-Partial/Moderate Assistance-helper does LESS THAN HALF the effort. [place] lifts, holds or supports trunk or limbs, but provides less than half the effort. 2-Substantial/Maximal Assistance-helper does MORE THAN HALF the effort. [place] lifts or holds trunk or limbs and provides more than half the effort. 0-Cdjmtpukd-lghwge does ALL the effort. Patient does none of the effort to complete the activity. Or, the assistance of 2 or more helpers is required for the patient to complete the activity. If activity was not attempted, code reason: 7-Patient Refused. 9-Not Applicable-not attempted and the patient did not perform the activity before the current illness, exacerbation or injury. 10-Not Attempted due to Environmental Limitations-(lack of equipment, weather restraints, etc.). 88-Not Attempted due to Medical Conditions or Safety Concerns. Roll Left to Right (QC): 6 Sit to Lying (QC): 5 Sit to Stand (QC): 5 Chair/Qfe-wc-Trcvm Xfer(QC): 5 Car Transfer (QC): 3 Gait Training Does the Patient Walk?: Yes Distance: 75' x2 Walk 10 feet (QC): 5 Walk 50 ft with 2 Turns(QC): 5 Walk 150 ft (QC): 5 Walking 10ft/uneven surface-QC: 3 Gait Persons Needed: 1 Gait Assistive Device: FWW Wheelchair Training Does the Pt Use a Wheelchair?: Yes Wheel 50 ft with 2 turns (QC): 4 Wheel 150 ft (QC): 9 Type of Wheelchair: Manual Stair Training 1 Step (curb) (QC): 3 4 Steps (QC): 88 12 Steps (QC): 9 Balance Picking up an Object (QC): 6 (from sitting position) ADL-Treatment Eating (QC): 6 Oral Hygiene (QC): 5 Shower/Bathe Self (QC): 3 Upper Body Dressing (QC): 5 Lower Body Dressing (QC): 3 On/Off Footwear (QC): 6 Toileting Hygiene (QC): 2 (Pt TD with bottom hygiene on this date due to c/o fatigue and limited strength.) Toilet Transfer (QC): 7 Assessment/Plan Assessment and Plan Assess & Plan/Chief Complaint Assessment: Intraparenchymal hematoma Falls Confusion CRI 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 ORACLE shunts Extensive CAD AF Foreskin edema-improved with hydrocortisone cream Plan: NH at DC IRF protocol in meantime Monitor orthostasis Prognosis guarded at this time Dr Lovett consultation is appreciated Patient improved but overall prognosis guarded (1) Intraparenchymal hematoma of brain (2) Orthostasis (3) COPD (chronic obstructive pulmonary disease) (4) Atrial fibrillation (5) CAD (coronary artery disease) (6) NPH (normal pressure hydrocephalus) (7) Renal insufficiency (8) Vertigo (9) Weakness (10) PVD (peripheral vascular disease) (11) Cognitive deficits (12) SYL (obstructive sleep apnea) (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 (14) Brain aneurysm (15) Ischemic cardiomyopathy (16) Gastric reflux (17) Renal lithiasis (18) Intracranial shunt (19) Hx of CABG (20) S/P AAA repair SOLO MENDENHALL DO Sep 26, 2019 09:53 POS
--- NOTE | 2019-09-26 10:27 | Occupational Ther Daily Note ---
OT Current Status-Daily Note Subjective Pt in bed, agrees to therapy. Has no c/o pain. ADL-Treatment Pt supine to sit without assist. Sponge bath completed while seated EOB. Upper body bathing completed with SBA. Pt able to wash bilateral upper legs and liat area. Declined to wash lower legs/feet at this time. Don pullover shirt with set up. Pt required assist to thread gonzalez through underwear and pants. Pt then able to don lower body clothing with CGA for balance during standing for pant hike. Pt donned bilateral socks with SBA. Gait to restroom with FWW. Pt stood at sink to complete oral care with SBA for balance. Transfer to chair with FWW, cues for safety. Pt completed bilateral UE exercises to increase strength needed for ADLs and transfers. Pt performed four exercises x20 reps with yellow theraband. Rest breaks between exercises. Cues for proper exercise technique. Pt completed fine motor resistance peg activity with bilateral hands to increase mailroom coordinator rdination/manipulation skills. Pt completed task with increased time. Pt sitting in chair with chair alarm in place and speech therapist present after session. Therapy Code Descriptions/Definitions Functional [place] Measure: 0=Not Assessed/NA 4=Minimal Assistance 1=Total Assistance 5=Supervision or Setup 2=Maximal Assistance 6=Modified [place] 3=Moderate Assistance 7=Complete IndependenceSCALE: Activities may be completed with or without assistive devices. 1-Bwezomyupd-wxmxucc completes the activity by him/herself with no assistance from a helper. 5-Set-up or Clean-up Assistance-helper sets up or cleans up; patient completes activity. [place]vin assists only prior to or following the activity. 4-Supervision or Touching Assistance-helper provides verbal cues and/or touching /steadying and/or contact guard assistance as patient completes activity. Assistance may be provided throughout the activity or intermittently. 3-Partial/Moderate Assistance-helper does LESS THAN HALF the effort. Ch[place]vin lifts, holds or supports trunk or limbs, but provides less than half the effort. 2-Substantial/Maximal Assistance-helper does MORE THAN HALF the effort. [place] lifts or holds trunk or limbs and provides more than half the effort. 8-Fckzddaff-vsnxbt does ALL the effort. Patient does none of the effort to complete the activity. Or, the assistance of 2 or more helpers is required for the patient to complete the activity. If activity was not attempted, code reason: 7-Patient Refused. 9-Not Applicable-not attempted and the patient did not perform the activity before the current illness, exacerbation or injury. 10-Not Attempted due to Environmental Limitations-(lack of equipment, weather restraints, etc.). 88-Not Attempted due to Medical Conditions or Safety Concerns. Upper Body Dressing (QC): 5 Lower Body Dressing (QC): 4 OT Short Term Goals Short Term Goals Eatin Oral hygiene: 6 Upper body dressin Lower body dressin (met) OT Prison Goals Metal Spray Operator Goals Time Frame: Oct 02, 2019 Eating (QC): 6 (met) Oral Hygiene (QC): 6 (met) Toileting Hygiene (QC): 6 Shower/Bathe Self (QC): 4 Upper Body Dressing (QC): 6 Lower Body Dressing (QC): 6 On/Off Footwear (QC): 6 Additional Goals: 1-Demonstrate ADL Tasks, 2-Verbalize Understanding, 3- ImproveStrength/Ronit 1=Demonstrate adherence to instructed precautions during ADL tasks. 2=Patient will verbalize/demonstrate understanding of assistive devices/modifications for ADL. 3=Patient will improve strength/tolerance for activity to enable patient to perform ADL's. OT Education/Plan Discharge Recommendations Plan/Recommendations: Continue POC Treatment Plan/Plan of Care Patient would benefit from OT for education, treatment and training to promote independence in ADL's, mobility, safety and/or upper extremity function for ADL's. Plan of Care: ADL Retraining, Caregiver Training, Functional Mobility, Group Exercise/Act as Ind, UE Funct Exercise/Act Treatment Duration: Oct 02, 2019 Frequency: At least 5 of 7 days/Wk (IRF) Estimated Hrs Per Day: 1.5 hours per day Agreement: Yes Rehab Potential: Fair Time/GCodes Start Time: 09:00 Stop Time: 10:00 Total Time Billed (hr/min): 60 Billed Treatment Time 1 visit, ADLx2(35minutes), EX(15minutes), FA(10minutes) RICHIE MEJIA OT Sep 26, 2019 10:27 POS
--- NOTE | 2019-09-26 11:40 | Speech Therapy Daily Note ---
Speech Daily Progress Note Subjective Date Seen by Provider: Sep 26, 2019 Time Seen by Provider: 00:30 Patient was resting in his recliner after just finishing his OT session. Patient was alert and participated well with therapy. Objective Patient completed a series of safety awareness tasks with utilization of cards/scenarios which he may encounter at his home at 90% with 10% cues. Assessment Assessment Current Status: Good Progress Treatment Plan Continue Plan of Care Speech Short Term Goals Short Term Goals Short Term Goals 1) The patient will complete memory tasks related to his daily needs at 90% or greater with minimal cues. 2) The patient will complete problem solving tasks related to his daily needs at 90% or greater with minimal cues. 3) The patient will complete safety awareness tasks related to his daily needs a t 90% or greater with minimal cues. 4) The patient will tolerate least restrictive diet without s/s of aspiration at 90%. 5) The patient will utilize compensatory strategies for safe oral intake at 90% with minimal cues. Speech Long-Term Goals General Manager [employer] Goals Patient will improve cognitive-communication abilities in order to complete daily tasks with minimal assist. Patient will maintain adequate nutrition/hydration via safe effective swallow function. Speech-Plan Patient/Family Goals Patient/Family Goals: Patient plans on returning home with his upon discharge. Treatment Plan Speech Therapy Treatment Plan: Continue Plan of Care Patient is anxious to return home [place]. 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 Pt/Family Agrees to Plan: Yes Safety Risks/Education Teaching Recipient: Patient Teaching Methods: Demonstration, Discussion Response to Teaching: Verbalize Understanding, Return Demonstration Education Topics Provided: Continued safety and communication of his wants and needs. Time Speech Therapy Time In: 10:00 Speech Therapy Time Out: 10:30 Total Billed Time: 30 Billed Treatment Time 1YUDITH BETHANIA ST Sep 26, 2019 11:40 POS
--- NOTE | 2019-09-26 11:50 | Physical Therapy Daily Note ---
PT Daily Note-Current Subjective Pt laying Supine in recliner upon arrival. Pt agrees to PT. SP, Daughter & ANGELA arrive during Rx. Pt reports wanting to return home [place]. Pain Location: No Pain Reported Mental Status Patient Orientation: Person, Place, Situation Attachments: Mueller Catheter Transfers SCALE: Activities may be completed with or without assistive devices. 1-Lukimndwiz-uirlwwp completes the activity by him/herself with no assistance from a helper. 5-Set-up or Clean-up Assistance-helper sets up or cleans up; patient completes activity. May assists only prior to or following the activity. 4-Supervision or Touching Assistance-helper provides verbal cues and/or touching/steadying and/or contact guard assistance as patient completes activity. Assistance may be provided throughout the activity or intermittently. 3-Partial/Moderate Assistance-helper does LESS THAN HALF the effort. May lifts, holds or supports trunk or limbs, but provides less than half the effort. 2-Substantial/Maximal Assistance-helper does MORE THAN HALF the effort. May lifts or holds trunk or limbs and provides more than half the effort. 7-Lvhfjpzhq-wpwrnx does ALL the effort. Patient does none of the effort to complete the activity. Or, the assistance of 2 or more helpers is required for the patient to complete the activity. If activity was not attempted, code reason: 7-Patient Refused. 9-Not Applicable-not attempted and the patient did not perform the activity be fore the current illness, exacerbation or injury. 10-Not Attempted due to Environmental Limitations-(lack of equipment, weather restraints, etc.). 88-Not Attempted due to Medical Conditions or Safety Concerns. Roll Left & Right (QC): 5 Sit to Lying (QC): 5 Lying to Sitting/Side of Bed(Q: 5 Sit to Stand (QC): 5 Weight Bearing Full Weight Bearing Full Weight Bearing Gait Training Does the Patient Walk?: Yes Distance: 350' Walk 10 feet (QC): 5 Walk 50 ft with 2 Turns(QC): 5 Walk 150 ft (QC): 5 Gait Persons Needed: 1 Gait Assistive Device: FWW Pt needs reminder to slow down when ambulating. Pt is more off balance with increased yanelis. Exercises Seated Therapy Exercises: Ankle pumps, Long arc quads, Hip flexion, Kicking activity, Hip abd/add Seated Reps: 20 NuStep Minutes: 15 NuStep Workload: 6 Treatments Pt transfers from Supine to Seated to Standing. Pt ambulates in hallway. Pt uses NuStep for 15m at WL 6 followed by Seated Ex. Pt takes short RB before ambulating in hallway then returning to room to rest. Pt lays Supine in bed with all needs met, including call light in hand. Assessment Pt continues to stay motivated for return to home. Pt needs VC to slow down when ambulating though for increased safety. PT Weight Control Lecturer Goals Weight Control Lecturer Goals PT Jail Goals Time Frame: Oct 12, 2019 Roll Left & Right (QC): 6 Sit to Lying (QC): 6 Lying-Sitting on Side/Bed(QC): 6 Sit to Stand (QC): 6 Chair/Twf-ld-Gqvox Xfer(QC): 6 Toilet Transfer (QC): 6 Car Transfer (QC): 6 Does the Patient Walk: Yes Walk 10 feet (QC): 6 Walk 50ft with 2 Turns (QC): 6 Walk 150 ft (QC): 6 Walking 10ft on Uneven Surface: 6 1 Step (curb) (QC): 6 4 Steps (QC): 9 12 Steps (QC): 9 Picking up an Object (QC): 6 Does the Pt use WC or Scooter?: No Type: N/A Type: N/A PT Plan Problem List Problem List: Activity Tolerance, Safety, Balance Treatment/Plan Treatment Plan: Continue Plan of Care Treatment Plan: Bed Mobility, Education, Functional Activity Ronit, Functional Strength, Gait, Safety, Therapeutic Exercise, Transfers Treatment Duration: Oct 12, 2019 Frequency: At least 5 of 7 days/Wk (IRF) Estimated Hrs Per Day: 1.5 hours per day Patient and/or Family Agrees t: Yes Safety Risks/Education Patient Education: Gait Training, Correct Positioning, Safety Issues Teaching Recipient: Patient Teaching Methods: Discussion Response to Teaching: Verbalize Understanding Time/GCodes Time In: 1045 Time Out: 1130 Total Billed Treatment Time: 45 Total Billed Treatment 1, GT (20m), EX (15m) & FA (10m) RAFI GARCIA EXTERMINATOR HELPER TERMITE Sep 26, 2019 11:50 POS
--- NOTE | 2019-09-26 13:27 | NUR ---
"RD ASSESSMENT PMHx: HTN; hypotension; afib; CAD; HLD; COPD; diverticulosis; chronic edema PT INTERACTION: Pt was awake and pleasant during nutrition follow-up. Pt states he has been eating well since last assessment. Note pt avg PO intake of 48% x4d, per chart review. Pt states no recent issues with n/v/c/d since last assessment. Note last BM was 09/25 and pt currently on bowel regimen of miralax BID; senna BID; colace PRN and bisacodyl PRN, per chart review. ABNORMAL NUTRITION-RELATED LAB VALUES LOW: Pro 6.3 HIGH: BUN 21; cr 1.55; AST 36; ALT 78 Est. kcal needs: 6135-3001 kcal | 20-25 kcal/kg Est. Pro needs: 75-94 g Pro | 0.8-1.0 g Pro/kg PES STATEMENT: Inadequate oral intake (NI-2.1) related to loss of appetite as evidenced by pt interview | avg PO intake 48% x4d INTERVENTION: Continue with current diet order of Regular diet. Add Ensure Enlive to meals TID for increased kcal intake. Provides 350 kcal and 13 g Pro per serving. Will continue to follow and reassess as pt needs and status change. MONITOR/EVALUATE: PO Intake; Plan of Care; Hydration Status; Weight Status; Lab Values Arnulfo Barragan, , RD, LD"
[2019-09-26] MEDS: CEPHALEXIN 250 MG (KEFLEX) CAP PO SCH ×2 (14:31→20:54)
--- NOTE | 2019-09-26 14:41 | Therapy Group Daily Note ---
Therapy Daily Group Note Patient Education Topic Other List Below (transfers) Exercises LE Seated Exercise, UE Exercise Session Ratio (pt:therapist): 4:1 Goal of Session: UE/LE Strengthing, Safety with Transfers Goal Met for this Session: Yes Pt Benefit of Group: Contributions to Others, F/U Use of Strategies @Home, Increased Functional Safety, Increased Functional Strength, Improved Cognition, Recognition of Peers, Socialization Other/Notes Pt maneuvered w/c to <--> from [facility] for OT/PT group. Group consisted of introductions (name, place living, [place] memory), socialization, pt led UE/LE seated exercises and education for safe transfers. Pt introduced self appropriately and actively listened to peers. Assistance given when pt unable to hear or read lips what was being said. Pt able to read exercise card and lead peers in one exercise then was able to complete other exercises. Pt acknowledged understanding of safe transfers utilizing AE for bathroom, automobile and chairs by contributing ideas and own experiences. After therapy, pt lying in bed with call light/phone in reach. All needs met in room. Start Time: 13:00 Stop Time: 14:15 Total Billed Treatment Time: 75 Total Billed Treatment 1-GRP LUBA MCCARTHY Sep 26, 2019 14:41 POS
--- NOTE | 2019-09-26 14:46 | NUR ---
Weekly Team Conference Patient sleeping soundly, spoke with spouse Lindsay, both daughters and a granddaughter via telephone conference. Team proposed discharge home by Tuesday; however, family expressed concerns about the gonzalez which is to remain until the followup visit with Dr. Lovett as well as whether patient could safely manage at home without hands on assist. Patient and spouse have great difference in size and the concern was that Lindsay was too small to adequately assist patient. HHC was planned and this was reviewed with family which lead to the exploration of community SNF options. Family had already been given Medicare Compare information and from that they indicated they would tour facilities and update personal lines underwriter in a.m. Patient discharge destination appears changed from home to SNF, pursue after family indicates preference of facility.
--- NOTE | 2019-09-26 16:32 | Cardiology Progress Note ---
Subjective Date Seen by Provider: Sep 26, 2019 Time Seen by Provider: 16:31 Subjective/Events-last exam patient was seen at bedside, he was sleeping, no reported incidents today Objective-Cardiology Exam Last Set of Vital Signs Vital Signs 09/25/19 09/26/19 09/26/19 09/26/19 09/26/19 15:48 06:16 08:59 09:00 13:00 Temp 37.0 Pulse 69 Resp 18 B/P (MAP) 147/83 (104) Pulse Ox 91 O2 Delivery Room Air O2 Flow Rate 3.00 Capillary Refill : I&O Intake and Output 09/26/19 00:00 Intake Total 780 ml Output Total 800 ml Balance -20 ml Intake Oral 780 ml Output Urine Total 800 ml # Bowel Movements 1 General: No Acute Distress, Other (Sleeping, no reported incidents) HEENT: Atraumatic, PERRLA Neck: Supple Lungs: Clear to Auscultation, Normal Air Movement Heart: Regular Rate, Normal S1, Normal S2, Other ( II/ CONNIE) Abdomen: Normal Bowel Sounds, Soft Extremities: No Clubbing, No Edema Skin: No Breakdown Neuro: Normal Speech, Cranial Nerves 3-12 NL (COCHLEAR IMPLANT) Psych/Mental Status: Mood NL A/P-Cardiology Admission Diagnosis Acute CVA Intracranial bleed Paroxysmal atrial fibrillation Hypertension Assessment/Plan Status post intracranial bleed, left occipital intraparenchymal and left posterior subdural hemorrhage, was evaluated and treated by neurology, currently recovering and receiving physical therapy and occupational therapy. Managed by primary care team Hypotensive episode, had multiple episode of hypotension while in , family reporting questionable history of hypotension in the past, better at this time. Continue to monitor Paroxysmal atrial fibrillation, currently off oral anticoagulation due to intracranial bleed. Was maintained on Coumadin. Maintained on amiodarone. Continue to hold Coumadin Coronary artery disease multiple interventions in the past done by Dr. Pandey reporting history of 10 stents in the past, 5 balloon angioplasties. Reporting last intervention done 5 years ago. Last LHC done January 2018 revealed 50% diag, 30-50% prox RCA and 30-40% ostial RCA. Most recent stress test done January 2019 revealing no ischemia or infarct. CHF, ischemic cardiomyopathy, most recent 2D Echo done March 2019 revealed EF 45%, grade 1 diastolic dysfunction, aortic valve sclerosis without stenosis. 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 Follows with neurology in . 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 Weber History of thoracic aortic dissection, treated conservatively in [place] in the past, continue to monitor Labile hypertension with episode of hypotension, blood pressure improved, no further episodes of hypotension, continue to monitor. Hyperlipidemia, monitor lipids CKD- continue to monitor renal function Elevated LFT's- trending down, continue to monitor. Generalized weakness and debility. Clinical Quality Measures DVT/VTE Risk/Contraindication: Risk Factor Score Per Nursin RFS Level Per Nursing on Admit: 2=Moderate GABBY ALCANTAR MD Sep 26, 2019 16:32 POS
[2019-09-26 18:17] VITALS: BP 132/74
[2019-09-27 06:11] VITALS: BP 116/75
[2019-09-27] MEDS: MULTIVIT W/MINERALS TAB (THERAGRAN M) PO SCH (06:32)
[2019-09-27] MEDS: VITAMIN D3 1,000 UNITS (CHOLECALCIFEROL) TABLET PO SCH (06:32)
--- NOTE | 2019-09-27 08:00 | NUR ---
URINE MUCH SENIOR HEALTH PHYSICS TECHNICIAN COLOR COMPARED TO SEVERAL DAYS AGO. VOICES DISAPPOINTMENT THAT IS NOT GOING HOME ON DISCHARGE. DENIES PAIN.
--- NOTE | 2019-09-27 08:05 | Cardiology Progress Note ---
Subjective Date Seen by Provider: Sep 27, 2019 Time Seen by Provider: 08:04 Subjective/Events-last exam Patient asleep in bed, nurse reports no new c/o. Review of Systems General: No Chills, No Night Sweats; Fatigue, Malaise; No Appetite, No Other HEENT: No Head Aches, No Visual Changes, No Eye Pain, No Ear Pain, No Dysphasia, No Sinus Congestion, No Post Nasal Drip, No Sore Throat, No Other Pulmonary: No Dyspnea, No Cough, No Pleuritic Chest Pain, No Other Cardiovascular: No: Chest Pain, Palpitations, Orthopnea, Paroxysmal Noc. Dyspnea, Edema, Lt Headedness, Other Objective-Cardiology Exam Last Set of Vital Signs Vital Signs 09/25/19 09/27/19 09/27/19 09/27/19 09/27/19 15:48 06:11 08:27 09:00 13:00 Temp 36.6 Pulse 70 Resp 16 B/P (MAP) 116/75 (89) Pulse Ox 94 O2 Delivery Room Air O2 Flow Rate 3.00 Capillary Refill : I&O Intake and Output 09/27/19 00:00 Intake Total 980 ml Output Total 725 ml Balance 255 ml Intake Oral 980 ml Output Urine Total 725 ml General: Alert, Oriented X3, Cooperative, No Acute Distress HEENT: Atraumatic, PERRLA Neck: Supple Lungs: Clear to Auscultation, Normal Air Movement Heart: Regular Rate, Normal S1, Normal S2, Other ( II/ CONNIE) Abdomen: Normal Bowel Sounds, Soft Extremities: No Clubbing, No Edema Skin: No Breakdown Neuro: Normal Speech, Cranial Nerves 3-12 NL (COCHLEAR IMPLANT) Psych/Mental Status: Mood NL A/P-Cardiology Admission Diagnosis Acute CVA Intracranial bleed Paroxysmal atrial fibrillation Hypertension Assessment/Plan Status post intracranial bleed, left occipital intraparenchymal and left posterior subdural hemorrhage, was evaluated and treated by neurology, currently recovering and receiving physical therapy and occupational therapy. Managed by primary care team Hypotensive episode, had multiple episode of hypotension while in , family reporting questionable history of hypotension in the past, better at this time. Continue to monitor Paroxysmal atrial fibrillation, currently off oral anticoagulation due to intracranial bleed. Was maintained on Coumadin. Maintained on amiodarone. Continue to hold Coumadin Coronary artery disease multiple interventions in the past done by Dr. Pandey reporting history of 10 stents in the past, 5 balloon angioplasties. Reporting last intervention done 5 years ago. Last LHC done January 2018 revealed 50% diag, 30-50% prox RCA and 30-40% ostial RCA. Most recent stress test done January 2019 revealing no ischemia or infarct. CHF, ischemic cardiomyopathy, most recent 2D Echo done March 2019 revealed EF 45%, grade 1 diastolic dysfunction, aortic valve sclerosis without stenosis. 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 Follows with neurology in . 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 Weber History of thoracic aortic dissection, treated conservatively in [place] in the past, continue to monitor Labile hypertension with episode of hypotension, blood pressure improved, no further episodes of hypotension, continue to monitor. Hyperlipidemia, monitor lipids CKD- continue to monitor renal function Elevated LFT's- trending down, continue to monitor. Generalized weakness and debility. Patient was seen and evaluated with Marsha, examination performed, management plan was discussed, agree with the current scribed note, I made few changes to the note using Italic font Patient is laying down comfortably, reporting improvement, asking to go home. Lungs were clear to auscultation, heart is regular Continue on current medication and continue to monitor blood pressure and lipids Clinical Quality Measures DVT/VTE Risk/Contraindication: Risk Factor Score Per Nursin RFS Level Per Nursing on Admit: 2=Moderate MARSHA GOMEZ Sep 27, 2019 8:05 am GABBY HEREDIA MD Sep 27, 2019 3:42 pm POS
[2019-09-27] MEDS: CEPHALEXIN 250 MG (KEFLEX) CAP PO SCH ×3 (09:14→21:06)
[2019-09-27] MEDS: PANTOPRAZOLE 40 MG (PROTONIX) TAB PO SCH (09:15)
[2019-09-27] MEDS: ALLOPURINOL 100 MG (ZYLOPRIM) TAB PO SCH (09:15)
[2019-09-27] MEDS: AMIODARONE 200 MG (CORDARONE) TAB PO SCH ×2 (09:15→21:05)
[2019-09-27] MEDS: rOPINIRole 0.25 MG (REQUIP) TAB PO SCH ×2 (09:15→21:04)
[2019-09-27] MEDS: SENNA W/DOCUSATE (SENOKOT S) TABLET PO SCH ×2 (09:16→21:05)
[2019-09-27] MEDS: POLYETHYLENE GLYCOL 17 GM (MIRALAX) PACK PO SCH ×2 (09:17→21:39)
[2019-09-27] MEDS: ASPIRIN E.C. 325 MG (ECOTRIN) TABLET PO SCH (09:17)
[2019-09-27] MEDS: HYDROCORTISONE 1% CREAM 30 GM TUBE TOP SCH ×2 (09:17→21:39)
[2019-09-27] MEDS: FINASTERIDE (PROSCAR) 5 MG TAB PO SCH (09:19)
--- NOTE | 2019-09-27 09:29 | PM&R Progress Note ---
Subjective HPI/CC On Admission Date Seen by Provider: Sep 27, 2019 Time Seen by Provider: 08:30 Subjective/Events-last exam Pt doing pretty good but disappointed he has to go to a custodial. Really not pleased with me because he has to go to a custodial but I informed him that his family thought it would be a good idea to have that type of skilled care before going home. Will discontinue telemetry. Urine is more clear since drinking more fluids. Bowels moved two days ago so will initiate a good regimen for that. Overall doing well Checked meds and labs Reviewed therapy notes Conferred with paper plate machine tender of Systems General: Fatigue Gastrointestinal: Constipation Neurological: Weakness, Numbness, Incoordination, Confusion Objective Exam Vital Signs Vital Signs Date Time Temp Pulse Resp B/P (MAP) Pulse Ox O2 Delivery O2 Flow Rate FiO2 09/28/19 18:00 37.0 53 18 136/77 (96) 95 Room Air 09/25/19 15:48 3.00 Capillary Refill : General Appearance: No Apparent Distress, WD/WN, Chronically ill HEENT: PERRL/EOMI, TMs Normal, Normal ENT Inspection, Pharynx Normal, Moist Mucous Membranes Neck: Full Range of Motion, Normal Inspection, Non Tender, Supple, Carotid Bruit Respiratory: Chest Non Tender, Lungs Clear, Normal Breath Sounds, No Accessory Muscle Use, No Respiratory Distress Cardiovascular: Regular Rate, Rhythm, No Gallop, No JVD, Normal Peripheral Pulses, Systolic Murmur, Gallop/S3 Gastrointestinal: Normal Bowel Sounds, No Organomegaly, No Pulsatile Mass, Non Tender, Soft Back: Normal Inspection, No CVA Tenderness, No Vertebral Tenderness Extremity: Normal Capillary Refill, Normal Inspection, Normal Range of Motion, Non Tender, No Calf Tenderness, No Pedal Edema Neurologic/Psychiatric: Alert, clerk travel reservations II-XII Norm as Tested, Depressed Affect, Disoriented, Motor Weakness (severe 4/5 legs and arms) Skin: Normal Color, Warm/Dry Lymphatic: No Adenopathy Results/Procedures Lab Patient resulted labs reviewed. FIM Transfers Therapy Code Descriptions/Definitions Functional [place] Measure: 0=Not Assessed/NA 4=Minimal Assistance 1=Total Assistance 5=Supervision or Setup 2=Maximal Assistance 6=Modified [place] 3=Moderate Assistance 7=Complete IndependenceSCALE: Activities may be completed with or without assistive devices. 4-Hqnxgablts-bwwnxwg completes the activity by him/herself with no assistance from a helper. 5-Set-up or Clean-up Assistance-helper sets up or cleans up; patient completes activity. [place] assists only prior to or following the activity. 4-Supervision or Touching Assistance-helper provides verbal cues and/or touching/steadying and/or contact guard assistance as patient completes activity. Assistance may be provided throughout the activity or intermittently. 3-Partial/Moderate Assistance-helper does LESS THAN HALF the effort. [place] lifts, holds or supports trunk or limbs, but provides less than half the effort. 2-Substantial/Maximal Assistance-helper does MORE THAN HALF the effort. [place] lifts or holds trunk or limbs and provides more than half the effort. 0-Saxzdbzko-aicqmr does ALL the effort. Patient does none of the effort to complete the activity. Or, the assistance of 2 or more helpers is required for the patient to complete the activity. If activity was not attempted, code reason: 7-Patient Refused. 9-Not Applicable-not attempted and the patient did not perform the activity before the current illness, exacerbation or injury. 10-Not Attempted due to Environmental Limitations-(lack of equipment, weather restraints, etc.). 88-Not Attempted due to Medical Conditions or Safety Concerns. Roll Left to Right (QC): 5 Sit to Lying (QC): 5 Sit to Stand (QC): 5 Chair/Ewj-pw-Lerxw Xfer(QC): 5 Car Transfer (QC): 3 Gait Training Does the Patient Walk?: Yes Distance: 350' Walk 10 feet (QC): 5 Walk 50 ft with 2 Turns(QC): 5 Walk 150 ft (QC): 5 Walking 10ft/uneven surface-QC: 3 Gait Persons Needed: 1 Gait Assistive Device: FWW Wheelchair Training Does the Pt Use a Wheelchair?: Yes Wheel 50 ft with 2 turns (QC): 4 Wheel 150 ft (QC): 9 Type of Wheelchair: Manual Stair Training 1 Step (curb) (QC): 3 4 Steps (QC): 88 12 Steps (QC): 9 Balance Picking up an Object (QC): 6 (from sitting position) ADL-Treatment Eating (QC): 6 Oral Hygiene (QC): 5 Shower/Bathe Self (QC): 3 Upper Body Dressing (QC): 5 Lower Body Dressing (QC): 4 On/Off Footwear (QC): 6 Toileting Hygiene (QC): 2 (Pt TD with bottom hygiene on this date due to c/o fatigue and limited strength.) Toilet Transfer (QC): 7 Assessment/Plan Assessment and Plan Assess & Plan/Chief Complaint Assessment: Intraparenchymal hematoma Falls Confusion 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 Extensive CAD AF Foreskin edema-improved with hydrocortisone cream Urinary retention Plan: [facility] at [facility] protocol in meantime Monitor orthostasis Prognosis guarded at this time Dr Lovett consultation is appreciated Patient improved but overall prognosis guarded NH VCV Tuesday (1) Intraparenchymal hematoma of brain (2) Orthostasis (3) COPD (chronic obstructive pulmonary disease) (4) Atrial fibrillation (5) CAD (coronary artery disease) (6) NPH (normal pressure hydrocephalus) (7) Renal insufficiency (8) Vertigo (9) Weakness (10) PVD (peripheral vascular disease) (11) Cognitive deficits (12) SYL (obstructive sleep apnea) (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
--- NOTE | 2019-09-27 10:13 | Speech Therapy Daily Note ---
Speech Daily Progress Note Subjective Date Seen by Provider: Sep 27, 2019 Time Seen by Provider: 00:30 Patient was resting in his bed after breakfast. Objective Patient completed safety awareness tasks with 80% given 20% verbal and/or visual cuing. Assessment Assessment Current Status: Good Progress Treatment Plan Continue Plan of Care Speech Short Term Goals Short Term Goals Short Term Goals 1) The patient will complete memory tasks related to his daily needs at 90% or greater with minimal cues. 2) The patient will complete problem solving tasks related to his daily needs at 90% or greater with minimal cues. 3) The patient will complete safety awareness tasks related to his daily needs at 90% or greater with minimal cues. 4) The patient will tolerate least restrictive diet without s/s of aspiration at 90%. 5) The patient will utilize compensatory strategies for safe oral intake at 90% with minimal cues. Speech Merchandiser Seasonal Goals Merchandiser Seasonal Goals Patient will improve cognitive-communication abilities in order to complete daily tasks with minimal assist. Patient will maintain adequate nutrition/hydration via safe effective swallow function. Speech-Plan Patient/Family Goals Patient/Family Goals: Patient plans on returning home with family, however his family are considering SNF at this time. Treatment Plan Speech Therapy Treatment Plan: Continue Plan of Care Patient has progressed well toward ST goals. 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
--- NOTE | 2019-09-27 10:31 | Occupational Ther Daily Note ---
OT Current Status-Daily Note Subjective Pt alert, lying in bed. Pt agrees to therapy. No c/o pain. Pt stated that he wants to leave. Mental Status/Objective Patient Orientation: Person, Place, Time, Situation Attachments: Mueller Catheter, IV ADL-Treatment Mod I for bed mobility, pt uses bed rails. Pt dons/doffs socks by self-Footwear (QC) 6 Therapy Code Descriptions/Definitions Functional [place] Measure: 0=Not Assessed/NA 4=Minimal Assistance 1=Total Assistance 5=Supervision or Setup 2=Maximal Assistance 6=Modified [place] 3=Moderate Assistance 7=Complete IndependenceSCALE: Activities may be completed with or without assistive devices. 5-Ozzjhelqpi-opgefia completes the activity by him/herself with no assistance from a helper. 5-Set-up or Clean-up Assistance-helper sets up or cleans up; patient completes activity. [place] assists only prior to or following the activity. 4-Supervision or Touching Assistance-helper provides verbal cues and/or touching/steadying and/or contact guard assistance as patient completes activity. Assistance may be provided throughout the activity or intermittently. 3-Partial/Moderate Assistance-helper does LESS THAN HALF the effort. [place] lifts, holds or supports trunk or limbs, but provides less than half the effort. 2-Substantial/Maximal Assistance-helper does MORE THAN HALF the effort. [place] lifts or holds trunk or limbs and provides more than half the effort. 1-Vbxukjlps-fnrmew does ALL the effort. Patient does none of the effort to complete the activity. Or, the assistance of 2 or more helpers is required for the patient to complete the activity. If activity was not attempted, code reason: 7-Patient Refused. 9-Not Applicable-not attempted and the patient did not perform the activity before the current illness, exacerbation or injury. 10-Not Attempted due to Environmental Limitations-(lack of equipment, weather restraints, etc.). 88-Not Attempted due to Medical Conditions or Safety Concerns. Other Treatment Pt ambulated with CGA for safety using FWW. Pt takes small quick steps. Pt stated that he was slightly dizzy when standing then passed quickly. Pt ambulated around ARU and to therapy gym. Pt completed arm bike with multiple breaks, set timer for 15 min and resistance for 30 [place] to increase strength and activity tolerance for daily functional tasks. Pt working on problem solving questions to increase cognition and sequencing for daily functional tasks. After therapy, pt lying in bed with call light/phone in reach. All needs met in. OT Short Term Goals Short Term Goals Eatin Oral hygiene: 6 Upper body dressin Lower body dressin (met) OT International Coordinator Goals International Coordinator Goals Time Frame: Oct 02, 2019 Eating (QC): 6 (met) Oral Hygiene (QC): 6 (met) Toileting Hygiene (QC): 6 Shower/Bathe Self (QC): 4 Upper Body Dressing (QC): 6 Lower Body Dressing (QC): 6 On/Off Footwear (QC): 6 Additional Goals: 1-Demonstrate ADL Tasks, 2-Verbalize Understanding, 3- ImproveStrength/Ronit 1=Demonstrate adherence to instructed precautions during ADL tasks. 2=Patient will verbalize/demonstrate understanding of assistive devices/modif ications for ADL. 3=Patient will improve strength/tolerance for activity to enable patient to perform ADL's. OT Education/Plan Problem List/Assessment Assessment: Decreased Activ Tolerance, Decreased UE Strength, Impaired Coordination, Impaired Funct Balance, Restricted Funct UE ROM Discharge Recommendations Plan/Recommendations: Continue POC Treatment Plan/Plan of Care Patient would benefit from OT for education, treatment and training to promote independence in ADL's, mobility, safety and/or upper extremity function for ADL's. Plan of Care: ADL Retraining, Caregiver Training, Functional Mobility, Group Exercise/Act as Ind, UE Funct Exercise/Act Treatment Duration: Oct 02, 2019 Frequency: At least 5 of 7 days/Wk (IRF) Estimated Hrs Per Day: 1.5 hours per day Agreement: Yes Rehab Potential: Guarded (atient ) Time/GCodes Start Time: 09:30 Stop Time: 10:30 Total Time Billed (hr/min): 60 Billed Treatment Time 1 visit-EX 3 (40 min) FA 1 (20 min) LUBA MCCARTHY Sep 27, 2019 10:31 POS
--- NOTE | 2019-09-27 10:41 | NUR ---
provided prayer and Communion.
[2019-09-27] MEDS: LORATADINE (CLARITIN) 10 MG TAB PO SCH (10:52)
--- NOTE | 2019-09-27 12:02 | Physical Therapy Daily Note ---
PT Daily Note-Current Subjective Pt laying asleep Supine in bed upon arrival. Pt agrees to PT. Pain Location: No Pain Reported Mental Status Patient Orientation: Person, Place, Time, Situation Attachments: Other-See Comments (B- Hearing Aids) Transfers SCALE: Activities may be completed with or without assistive devices. 5-Uzudqdjowf-vzqktrh completes the activity by him/herself with no assistance from a helper. 5-Set-up or Clean-up Assistance-helper sets up or cleans up; patient completes activity. [place] assists only prior to or following the activity. 4-Supervision or Touching Assistance-helper provides verbal cues and/or touching/steadying and/or contact guard assistance as patient completes activity. Assistance may be provided throughout the activity or intermittently. 3-Partial/Moderate Assistance-helper does LESS THAN HALF the effort. [place] lifts, holds or supports trunk or limbs, but provides less than half the effort. 2-Substantial/Maximal Assistance-helper does MORE THAN HALF the effort. [place] lifts or holds trunk or limbs and provides more than half the effort. 9-Osxldgslt-ruruhd does ALL the effort. Patient does none of the effort to complete the activity. Or, the assistance of 2 or more helpers is required for the patient to complete the activity. If activity was not attempted, code reason: 7-Patient Refused. 9-Not Applicable-not attempted and the patient did not perform the activity before the current illness, exacerbation or injury. 10-Not Attempted due to Environmental Limitations-(lack of equipment, weather restraints, etc.). 88-Not Attempted due to Medical Conditions or Safety Concerns. Roll Left & Right (QC): 5 Sit to Lying (QC): 5 Lying to Sitting/Side of Bed(Q: 5 Sit to Stand (QC): 5 Weight Bearing Full Weight Bearing Full Weight Bearing Gait Training Does the Patient Walk?: Yes Distance: 150' Walk 10 feet (QC): 5 Walk 50 ft with 2 Turns(QC): 5 Walk 150 ft (QC): 5 Gait Persons Needed: 1 Gait Assistive Device: FWW Exercises NuStep Minutes: 15 NuStep Workload: 6 Treatments Pt transfers from bed to standing using FWW. Pt ambulates in hallway using FWW. Pt uses NuStep for 15m at WL 6 followed by Seated EX. Pt then ambulates back to room to rest in bed. Pt lays Supine and completes Supine EX in bed. Pt resting at end of Rx with all needs met, call light in hand. Assessment Current Status: Good Progress Pt is anxious to go home and needs VC to remind pt to slow down PT Bell Person Goals Bell Person Goals PT Bell Person Goals Time Frame: Oct 12, 2019 Roll Left & Right (QC): 6 Sit to Lying (QC): 6 Lying-Sitting on Side/Bed(QC): 6 Sit to Stand (QC): 6 Chair/Xov-wv-Gmodh Xfer(QC): 6 Toilet Transfer (QC): 6 Car Transfer (QC): 6 Does the Patient Walk: Yes Walk 10 feet (QC): 6 Walk 50ft with 2 Turns (QC): 6 Walk 150 ft (QC): 6 Walking 10ft on Uneven Surface: 6 1 Step (curb) (QC): 6 4 Steps (QC): 9 12 Steps (QC): 9 Picking up an Object (QC): 6 Does the Pt use WC or Scooter?: No Type: N/A Type: N/A PT Plan Problem List Problem List: Activity Tolerance, Safety Treatment/Plan Treatment Plan: Continue Plan of Care Treatment Plan: Bed Mobility, Education, Functional Activity Ronit, Functional Strength, Gait, Safety, Therapeutic Exercise, Transfers Treatment Duration: Oct 12, 2019 Frequency: At least 5 of 7 days/Wk (IRF) Estimated Hrs Per Day: 1.5 hours per day Patient and/or Family Agrees t: Yes Safety Risks/Education Patient Education: Gait Training, Transfer Techniques, Correct Positioning, Safety Issues Teaching Recipient: Patient Teaching Methods: Discussion Response to Teaching: Verbalize Understanding Time/GCodes Time In: 1100 Time Out: 1145 Total Billed Treatment Time: 45 Total Billed Treatment 1, GT (15m) & EX x2 (30m) RAFI GARCIA EVENT PRODUCER Sep 27, 2019 12:02 POS
--- NOTE | 2019-09-27 14:03 | Physical Therapy Daily Note ---
PT Daily Note-Current Subjective Pt laying Supine in bed, just finishing with SW & family discussion upon arrival. Pt agrees to PT. Pain Location: No Pain Reported Mental Status Patient Orientation: Person, Place, Time, Situation Attachments: Mueller Catheter Transfers SCALE: Activities may be completed with or without assistive devices. 1-Pnunxtqmpo-zirxuhg completes the activity by him/herself with no assistance from a helper. 5-Set-up or Clean-up Assistance-helper sets up or cleans up; patient completes activity. [place] assists only prior to or following the activity. 4-Supervision or Touching Assistance-helper provides verbal cues and/or touching/steadying and/or contact guard assistance as patient completes activity. Assistance may be provided throughout the activity or intermittently. 3-Partial/Moderate Assistance-helper does LESS THAN HALF the effort. [place] lifts, holds or supports trunk or limbs, but provides less than half the effort. 2-Substantial/Maximal Assistance-helper does MORE THAN HALF the effort. [place] lifts or holds trunk or limbs and provides more than half the effort. 2-Pqtsxihyt-whpivt does ALL the effort. Patient does none of the effort to complete the activity. Or, the assistance of 2 or more helpers is required for the patient to complete the activity. If activity was not attempted, code reason: 7-Patient Refused. 9-Not Applicable-not attempted and the patient did not perform the activity before the current illness, exacerbation or injury. 10-Not Attempted due to Environmental Limitations-(lack of equipment, weather restraints, etc.). 88-Not Attempted due to Medical Conditions or Safety Concerns. Roll Left & Right (QC): 5 Sit to Lying (QC): 5 Lying to Sitting/Side of Bed(Q: 5 Sit to Stand (QC): 5 Weight Bearing Full Weight Bearing Full Weight Bearing Gait Training Does the Patient Walk?: Yes Distance: 75' x2 Walk 10 feet (QC): 5 Walk 50 ft with 2 Turns(QC): 5 Walk 150 ft (QC): 5 Gait Persons Needed: 1 Gait Assistive Device: FWW Exercises Standing: Heel/toe raises, 3 way Ex=Flex, Abd, Ext, Marching, Mini squats, Weight shifts Standing Reps: 20 Treatments Pt transfers from bed to standing using FWW. Pt ambulates in hallway. Pt completes Standing Ex at //bars. Pt returns to room to rest in bed with all needs met, call light in hand. Assessment Pt needs VC to remind pt to decrease speed of activities. PT Marketing Agent Goals Group Home Goals PT Group Home Goals Time Frame: Oct 12, 2019 Roll Left & Right (QC): 6 Sit to Lying (QC): 6 Lying-Sitting on Side/Bed(QC): 6 Sit to Stand (QC): 6 Chair/Xmu-eo-Pumci Xfer(QC): 6 Toilet Transfer (QC): 6 Car Transfer (QC): 6 Does the Patient Walk: Yes Walk 10 feet (QC): 6 Walk 50ft with 2 Turns (QC): 6 Walk 150 ft (QC): 6 Walking 10ft on Uneven Surface: 6 1 Step (curb) (QC): 6 4 Steps (QC): 9 12 Steps (QC): 9 Picking up an Object (QC): 6 Does the Pt use WC or Scooter?: No Type: N/A Type: N/A PT Plan Problem List Problem List: Activity Tolerance, Safety Treatment/Plan Treatment Plan: Continue Plan of Care Treatment Plan: Bed Mobility, Education, Functional Activity Ronit, Functional Strength, Gait, Safety, Therapeutic Exercise, Transfers Treatment Duration: Oct 12, 2019 Frequency: At least 5 of 7 days/Wk (IRF) Estimated Hrs Per Day: 1.5 hours per day Patient and/or Family Agrees t: Yes Safety Risks/Education Patient Education: Gait Training, Correct Positioning, Safety Issues Teaching Recipient: Patient Teaching Methods: Discussion Response to Teaching: Verbalize Understanding Time/GCodes Time In: 1300 Time Out: 1330 Total Billed Treatment Time: 30 Total Billed Treatment 1, GT (10m) & EX (20m) RAFI GARCIA MANAGER MAINTENANCE Sep 27, 2019 14:03 POS
--- NOTE | 2019-09-27 14:54 | NUR ---
Discharge Planning Call from daughter Dori this a.m. reporting they had toured facilities and had decided on [facility]. Referral completed this a.m., patient has been accepted for admission on Tuesday. He and family understand he will be in a semi-private room until such time as a private opens up. CARE Assessment will be required, pending at this time. SUMMARY: Met with patient, spouse and daughter this p.m. to confirm his understanding of the discharge plan. He continues to desire to return home as soon as he can, he did verbalize acceptance of the bridge for skilled services short term before going home. This was not without attempted bargaining for some way to return directly home. Family members approached scientific writer privately, they are having their family Tuesday and asked about taking patient on a day pass. Track Manager conferred with physician/team and all agree this would be emotionally difficult for patient to allow him home for a few hours with required return to ARU. Day pass will not be approved; however, family members intend to come here and be with him for inclusion. Continue to complete process for transfer to [facility] on Tuesday.
[2019-09-27 16:37] VITALS: BP 99/56
[2019-09-28 06:19] VITALS: BP 109/61
[2019-09-28] MEDS: VITAMIN D3 1,000 UNITS (CHOLECALCIFEROL) TABLET PO SCH (06:22)
[2019-09-28] MEDS: MULTIVIT W/MINERALS TAB (THERAGRAN M) PO SCH (06:22)
[2019-09-28] MEDS: LORATADINE (CLARITIN) 10 MG TAB PO SCH (08:28)
[2019-09-28] MEDS: AMIODARONE 200 MG (CORDARONE) TAB PO SCH (08:28)
[2019-09-28] MEDS: ASPIRIN E.C. 325 MG (ECOTRIN) TABLET PO SCH (08:29)
[2019-09-28] MEDS: CEPHALEXIN 250 MG (KEFLEX) CAP PO SCH ×3 (08:29→20:19)
[2019-09-28] MEDS: rOPINIRole 0.25 MG (REQUIP) TAB PO SCH ×2 (08:30→20:18)
[2019-09-28] MEDS: PANTOPRAZOLE 40 MG (PROTONIX) TAB PO SCH (08:30)
[2019-09-28] MEDS: FINASTERIDE (PROSCAR) 5 MG TAB PO SCH (08:30)
[2019-09-28] MEDS: SENNA W/DOCUSATE (SENOKOT S) TABLET PO SCH ×2 (08:30→20:19)
[2019-09-28] MEDS: ALLOPURINOL 100 MG (ZYLOPRIM) TAB PO SCH (08:30)
[2019-09-28] MEDS: POLYETHYLENE GLYCOL 17 GM (MIRALAX) PACK PO SCH ×2 (08:32→20:19)
[2019-09-28] MEDS: HYDROCORTISONE 1% CREAM 30 GM TUBE TOP SCH ×2 (08:33→20:19)
--- NOTE | 2019-09-28 08:52 | Speech Therapy Daily Note ---
Speech Daily Progress Note Subjective Date Seen by Provider: Sep 28, 2019 Time Seen by Provider: 00:30 Patient was just waking up and ate breakfast during our session today. Objective Patient utilized safety strategies for oral intake with meal, drinks and meds with 90% given minimal cues. Treatment Plan Continue Plan of Care Speech Short Term Goals Short Term Goals Short Term Goals 1) The patient will complete memory tasks related to his daily needs at 90% or greater with minimal cues. 2) The patient will complete problem solving tasks related to his daily needs at 90% or greater with minimal cues. 3) The patient will complete safety awareness tasks related to his daily needs at 90% or greater with minimal cues. 4) The patient will tolerate least restrictive diet without s/s of aspiration at 90%. 5) The patient will utilize compensatory strategies for safe oral intake at 90% with minimal cues. Speech Mechanical Piping Designer Goals Mcfp Goals Patient will improve cognitive-communication abilities in order to complete daily tasks with minimal assist. Patient will maintain adequate nutrition/hydration via safe effective swallow function. Speech-Plan Patient/Family Goals Patient/Family Goals: Patient is scheduled to go to SNF on 10/01/19. Treatment Plan Speech Therapy Treatment Plan: Continue Plan of Care Patient has made good progress toward meeting all ST goals. Treatment Duration: Oct 01, 2019 Frequency: 5 times per week Estimated Hrs Per Day: .5 hour per day Rehab Potential: Guarded (atient ) Barriers to Learning: Patient has mild cognitive deficits Pt/Family Agrees to Plan: Yes Safety Risks/Education Teaching Recipient: Patient Teaching Methods: Demonstration, Discussion Response to Teaching: Verbalize Understanding, Return Demonstration Education Topics Provided: Continued safety with oral intake when discharged Time Speech Therapy Time In: 08:15 Speech Therapy Time Out: 08:45 Total Billed Time: 30 Billed Treatment Time 1, DYST No SYLVIA BECKER Sep 28, 2019 08:52 POS
--- NOTE | 2019-09-28 10:02 | PM&R Progress Note ---
Subjective HPI/CC On Admission Date Seen by Provider: Sep 28, 2019 Time Seen by Provider: 09:30 Subjective/Events-last exam No new major issues No bowel movement for 3 days again so we will initiate more aggressive regimen including suppository and enema if needed Keflex maintained for UTI which is tolerated No fever Wants to go home desperately We will go on a day pass to renew his bowels tomorrow his family will surprise h im Check meds Overall doing well Checked meds and labs Reviewed therapy notes Conferred with planning rn of Systems General: Fatigue Neurological: Weakness, Numbness, Incoordination, Confusion Objective Exam Vital Signs Vital Signs Date Time Temp Pulse Resp B/P (MAP) Pulse Ox O2 Delivery O2 Flow Rate FiO2 09/28/19 18:00 37.0 53 18 136/77 (96) 95 Room Air 09/25/19 15:48 3.00 Capillary Refill : General Appearance: No Apparent Distress, WD/WN, Chronically ill HEENT: PERRL/EOMI, TMs Normal, Normal ENT Inspection, Pharynx Normal, Moist Mucous Membranes Neck: Full Range of Motion, Normal Inspection, Non Tender, Supple, Carotid Bruit Respiratory: Chest Non Tender, Lungs Clear, Normal Breath Sounds, No Accessory Muscle Use, No Respiratory Distress Cardiovascular: Regular Rate, Rhythm, No Gallop, No JVD, Normal Peripheral Pulses, Systolic Murmur, Gallop/S3 Gastrointestinal: Normal Bowel Sounds, No Organomegaly, No Pulsatile Mass, Non Tender, Soft Back: Normal Inspection, No CVA Tenderness, No Vertebral Tenderness Extremity: Normal Capillary Refill, Normal Inspection, Normal Range of Motion, Non Tender, No Calf Tenderness, No Pedal Edema Neurologic/Psychiatric: Alert, stone belt sander II-XII Norm as Tested, Depressed Affect, Disoriented, Motor Weakness (severe 4/5 legs and arms) Skin: Normal Color, Warm/Dry Lymphatic: No Adenopathy Results/Procedures Lab Patient resulted labs reviewed. FIM Transfers Therapy Code Descriptions/Definitions Functional [place] Measure: 0=Not Assessed/NA 4=Minimal Assistance 1=Total Assistance 5=Supervision or Setup 2=Maximal Assistance 6=Modified [place] 3=Moderate Assistance 7=Complete IndependenceSCALE: Activities may be completed with or without assistive devices. 4-Ljskrnxpcw-gsjgyui completes the activity by him/herself with no assistance from a helper. 5-Set-up or Clean-up Assistance-helper sets up or cleans up; patient completes activity. [place] assists only prior to or following the activity. 4-Supervision or Touching Assistance-helper provides verbal cues and/or touching/steadying and/or contact guard assistance as patient completes activity. Assistance may be provided throughout the activity or intermittently. 3-Partial/Moderate Assistance-helper does LESS THAN HALF the effort. [place] lifts, holds or supports trunk or limbs, but provides less than half the effort. 2-Substantial/Maximal Assistance-helper does MORE THAN HALF the effort. [place] lifts or holds trunk or limbs and provides more than half the effort. 1-Nxknovouq-czzckn does ALL the effort. Patient does none of the effort to complete the activity. Or, the assistance of 2 or more helpers is required for the patient to complete the activity. If activity was not attempted, code reason: 7-Patient Refused. 9-Not Applicable-not attempted and the patient did not perform the activity before the current illness, exacerbation or injury. 10-Not Attempted due to Environmental Limitations-(lack of equipment, weather restraints, etc.). 88-Not Attempted due to Medical Conditions or Safety Concerns. Roll Left to Right (QC): 5 Sit to Lying (QC): 5 Sit to Stand (QC): 5 Chair/Yke-nm-Qvzmn Xfer(QC): 5 Car Transfer (QC): 3 Gait Training Does the Patient Walk?: Yes Distance: 75' x2 Walk 10 feet (QC): 5 Walk 50 ft with 2 Turns(QC): 5 Walk 150 ft (QC): 5 Walking 10ft/uneven surface-QC: 3 Gait Persons Needed: 1 Gait Assistive Device: FWW Wheelchair Training Does the Pt Use a Wheelchair?: Yes Wheel 50 ft with 2 turns (QC): 4 Wheel 150 ft (QC): 9 Type of Wheelchair: Manual Stair Training 1 Step (curb) (QC): 3 4 Steps (QC): 88 12 Steps (QC): 9 Balance Picking up an Object (QC): 6 (from sitting position) ADL-Treatment Eating (QC): 6 Oral Hygiene (QC): 5 Shower/Bathe Self (QC): 3 Upper Body Dressing (QC): 5 Lower Body Dressing (QC): 4 On/Off Footwear (QC): 6 Toileting Hygiene (QC): 2 (Pt TD with bottom hygiene on this date due to c/o fatigue and limited strength.) Toilet Transfer (QC): 7 Assessment/Plan Assessment and Plan Assess & Plan/Chief Complaint Assessment: Intraparenchymal hematoma Falls Confusion CRI NPH LADIES' HAT TRIMMER shunts Extensive CAD AF Foreskin edema-improved with hydrocortisone cream Plan: [facility] at [place] IRF protocol in meantime Monitor orthostasis Prognosis guarded at this time Dr Lovett consultation is appreciated Patient improved but overall prognosis guarded [facility] Tuesday pass tomorrow (1) Intraparenchymal hematoma of brain (2) Orthostasis (3) COPD (chronic obstructive pulmonary disease) (4) Atrial fibrillation (5) CAD (coronary artery disease) (6) NPH (normal pressure hydrocephalus) (7) Renal insufficiency (8) Vertigo (9) Weakness (10) PVD (peripheral vascular disease) (11) Cognitive deficits (12) SYL (obstructive sleep apnea) (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
--- NOTE | 2019-09-28 10:11 | Occupational Ther Daily Note ---
OT Current Status-Daily Note Subjective Pt agreeable to treatment. No reports of pain. States he just wants to go home. ADL-Treatment Pt declined shower, states he had one last night. Pt washed face and upper body with set up. Applied deodorant without assist. Pt donned clean shirt with setup. Declined to wash lower body or change pants. Pt donned bilateral socks with set up. Sit to stand with supervision. Gait to restroom with FWW. Pt stood at sink to complete oral care with SBA. Rest break taken after standing. Therapy Code Descriptions/Definitions Functional [place] Measure: 0=Not Assessed/NA 4=Minimal Assistance 1=Total Assistance 5=Supervision or Setup 2=Maximal Assistance 6=Modified [place] 3=Moderate Assistance 7=Complete IndependenceSCALE: Activities may be completed with or without assistive devices. 3-Xworqrycjh-lsptvvo completes the activity by him/herself with no assistance from a helper. 5-Set-up or Clean-up Assistance-helper sets up or cleans up; patient completes activity. [place] assists only prior to or following the activity. 4-Supervision or Touching Assistance-helper provides verbal cues and/or touching/steadying and/or contact guard assistance as patient completes activity. Assistance may be provided throughout the activity or intermittently. 3-Partial/Moderate Assistance-helper does LESS THAN HALF the effort. [place] lifts, holds or supports trunk or limbs, but provides less than half the effort. 2-Substantial/Maximal Assistance-helper does MORE THAN HALF the effort. [place] lifts or holds trunk or limbs and provides more than half the effort. 9-Qabksqiaj-xtkgok does ALL the effort. Patient does none of the effort to complete the activity. Or, the assistance of 2 or more helpers is required for the patient to complete the activity. If activity was not attempted, code reason: 7-Patient Refused. 9-Not Applicable-not attempted and the patient did not perform the activity before the current illness, exacerbation or injury. 10-Not Attempted due to Environmental Limitations-(lack of equipment, weather restraints, etc.). 88-Not Attempted due to Medical Conditions or Safety Concerns. Oral Hygiene (QC): 4 Upper Body Dressing (QC): 5 Other Treatment Gait to therapy gym with FWW, requires cues for walker use and safety. Pt completed fine motor task with nuts and bolts using bilateral UE to increase coordination/manipulation skills and activity tolerance needed for functional task completion. Pt completed task without difficulty. Arm bike x10 minutes to increase overall strength and activity tolerance needed for ADLs and transfers. Pt completed task with minimal resistance and slow pace. One rest break taken. Pt returned to room, transferred to bed with supervision. Pt resting in bed with needs met, bed alarm on, after session. OT Short Term Goals Short Term Goals Eatin Oral hygiene: 6 Upper body dressin Lower body dressin (met) OT Jail Goals Sr Community Manager Goals Time Frame: Oct 02, 2019 Eating (QC): 6 (met) Oral Hygiene (QC): 6 (met) Toileting Hygiene (QC): 6 Shower/Bathe Self (QC): 4 Upper Body Dressing (QC): 6 Lower Body Dressing (QC): 6 On/Off Footwear (QC): 6 Additional Goals: 1-Demonstrate ADL Tasks, 2-Verbalize Understanding, 3- ImproveStrength/Ronit 1=Demonstrate adherence to instructed precautions during ADL tasks. 2=Patient will verbalize/demonstrate understanding of assistive devices/modifications for ADL. 3=Patient will improve strength/tolerance for activity to enable patient to perform ADL's. OT Education/Plan Discharge Recommendations Plan/Recommendations: Continue POC Treatment Plan/Plan of Care Patient would benefit from OT for education, treatment and training to promote independence in ADL's, mobility, safety and/or upper extremity function for ADL's. Plan of Care: ADL Retraining, Caregiver Training, Functional Mobility, Group Exercise/Act as Ind, UE Funct Exercise/Act Treatment Duration: Oct 02, 2019 Frequency: At least 5 of 7 days/Wk (IRF) Estimated Hrs Per Day: 1.5 hours per day Agreement: Yes Rehab Potential: Guarded (atient ) Time/GCodes Start Time: 09:00 Stop Time: 10:00 Total Time Billed (hr/min): 60 Billed Treatment Time 1 visit, ADLx2(25minutes), EXx2(35minutes) RICHIE MEJIA OT Sep 28, 2019 10:10 POS
--- NOTE | 2019-09-28 11:19 | NUR ---
Day Pass, Tuesday Physician has approved Day Pass for tomorrow, 09/29/19, for a short home visit. PCP Dr. Butcher contacted [facility] Security Specialist re same to advocate for patient to be able to go, family apparently have a surprise planned for their parents at their [place] get together. Still on target for Tuesday discharge to [facility] skilled services.
--- NOTE | 2019-09-28 11:25 | Progress Note ---
Objective Exam Last Set of Vital Signs Vital Signs Date Time Temp Pulse Resp B/P (MAP) Pulse Ox O2 Delivery O2 Flow Rate FiO2 09/28/19 06:41 48 09/28/19 06:19 36.8 18 109/61 (77) 93 Room Air 09/25/19 15:48 3.00 Capillary Refill : I&O Intake and Output 09/28/19 00:00 Intake Total 850 ml Output Total 800 ml Balance 50 ml Intake Oral 850 ml Output Urine Total 800 ml Results Lab Microbiology 09/22/19 Urine Culture - Final, Complete Proteus mirabilis Enterococcus faecalis Assessment/Plan Assessment/Plan Assess & Plan/Chief Complaint PARENCHYMAL BLEED VERTIGO WEAKNESS HYPERTENSION DEPRESSION CORONARY ARTERY DISEASE CHRONIC ANTICOAGULATION URINARY RETENTION PARENCHYMAL BLEED - PT WAS TRANSPORTED TO , WATCHED CLOSELY, REPEAT SCANS DID NOT SHOW WORSENING BLEEDING AND HE WAS KEPT IN THE HOSPITAL FOR MONITORING BEFORE TRANSFER BACK TO [facility] FOR INPATIENT REHAB. -THIS IS THE INITIAL CT SCAN WHICH CAUSED HIS TRANSFER FROM [facility] TO - SEE CT SCAN REPORT BELOW: 1. New acute intraparenchymal hemorrhage in the left parieto-occipital region with adjacent edema and mild mass effect. There is also an acute left- sided subdural hematoma measuring up to 5.5 mm in thickness. 2. Re-demonstrated abnormal masslike opacification anterior to the brainstem which may relate to large aneurysm. VERTIGO AND WEAKNESS - IMPROVED FROM ADMISSION - SUPPORTIVE CARE AT THIS TIME, CONTINUE WITH PT/OT WITH GOAL OF MICHAEL BEING DISCHARGED TO HOME IN THE CARE OF HIS FAMILY. HYPERTENSION - CONTINUE WITH HOME REGIMEN OF METOPROLOL, PARAMETERS FOR HOLD OF HIS ARB GIVEN YESTERDAY TO NURSING STAFF. DEPRESSION - PT ON CHRONIC SSRI THERAPY - CONTINUE WITH CURRENT HOME REGIMEN. CORONARY ARTERY DISEASE - DEFER TO CARDIOLOGY CHRONIC ANTICOAGULATION - MONITOR INR SERIALLY - KEEP LEVEL BETWEEN 2 AND 3. URINARY RETENTION - SEVILLA CATHETER PLACED, WILL HAVE PT FOLLOW UP WITH UROLOGIST OUTPATIENT FOR SEVILLA REMOVAL ON DISCHARGE. Clinical Quality Measures DVT/VTE Risk/Contraindication: Risk Factor Score Per Nursin RFS Level Per Nursing on Admit: 2=Moderate DAPHNE BHATT MD Sep 28, 2019 11:25 POS
--- NOTE | 2019-09-28 11:36 | Progress Note ---
[facility] 09/28/19 1136: Progress Note TIme: 0840 Subjective: History was limited due to patients hearing Patient states that he has no complaints Denies pain Patient states that he is ready to go home Patient will be discharged to a jail per family request. Objective: General: Alert & Oriented x3, No acute distress, W/N W/D, CV: RRR, No murmurs, No edema, Radial pulses 2/4 bilaterally Resp: CTAB, No accessory muscle use,, no respiratory distress Assessment: Patient continues to bring lots of energy into rehab Patient needs to increase fluid intake Indwelling catheter Plan: Increased fluids COntinue PT, OT Barriers: - Education on nutrition and health. - Continue Strength and endurance DENEEN MENDENHALL DO 09/28/19 2114: Supervisory-Addendum Brief Verification & Attestation Participated in pt care: history, MDM, physical Personally performed: exam, history, MDM, supervision of care Care discussed with: Medical Student Procedures: n/a Results interpretation: Verified all documentation Verification and Attestation of Medical Student E/M Service A medical student performed and documented this service in my presence. I reviewed and verified all information documented by the medical student and made modifications to such information, when appropriate. I personally performed the physical exam and medical decision making. Deneen Mendenhall, Sep 28, 2019,21:14 [facility] Sep 28, 2019 11:36 DENEEN ANTONIO DO Sep 28, 2019 21:14 POS
--- NOTE | 2019-09-28 11:38 | NUR ---
provided prayer and Communion. Pt was anointed by yesterday.
--- NOTE | 2019-09-28 12:04 | Physical Therapy Daily Note ---
PT Daily Note-Current Subjective Pt. agrees to Rx. States he feels he is better but still gets tired while walking etc and up on feet. Pain Location: No Pain Reported Mental Status Patient Orientation: Normal For Age Attachments: Mueller Catheter Transfers SCALE: Activities may be completed with or without assistive devices. 4-Gckfjzyfvv-zuqrswn completes the activity by him/herself with no assistance from a helper. 5-Set-up or Clean-up Assistance-helper sets up or cleans up; patient completes activity. [place] assists only prior to or following the activity. 4-Supervision or Touching Assistance-helper provides verbal cues and/or touching/steadying and/or contact guard assistance as patient completes activity. Assistance may be provided throughout the activity or intermittently. 3-Partial/Moderate Assistance-helper does LESS THAN HALF the effort. [place] lifts, holds or supports trunk or limbs, but provides less than half the effort. 2-Substantial/Maximal Assistance-helper does MORE THAN HALF the effort. [place] lifts or holds trunk or limbs and provides more than half the effort. 0-Coqsoegap-kflqdl does ALL the effort. Patient does none of the effort to complete the activity. Or, the assistance of 2 or more helpers is required for the patient to complete the activity. If activity was not attempted, code reason: 7-Patient Refused. 9-Not Applicable-not attempted and the patient did not perform the activity before the current illness, exacerbation or injury. 10-Not Attempted due to Environmental Limitations-(lack of equipment, weather restraints, etc.). 88-Not Attempted due to Medical Conditions or Safety Concerns. Roll Left & Right (QC): 6 Sit to Lying (QC): 6 Lying to Sitting/Side of Bed(Q: 6 Sit to Stand (QC): 6 Chair/Rve-yn-Cttmv Xfer(QC): 6 Weight Bearing Full Weight Bearing Full Weight Bearing Gait Training Does the Patient Walk?: Yes Walk 10 feet (QC): 5 Walk 50 ft with 2 Turns(QC): 5 Walk 150 ft (QC): 5 Gait Persons Needed: 1 Gait Assistive Device: FWW pt. with tendency to walk very quickly was challenged this date by this STORAGE SPECIALIST to walk slower and emphasis on control and steadiness Exercises Supine Ex: Bridging, Ankle pumps, Quad Set, Rolling, Glut sets, Heel Slides, Short Arc Quads, Scooting, Straight leg raise, Hip abd/add Supine Reps: 15 Seated Therapy Exercises: Ankle pumps, Sit to stand, Long arc quads, Hip flexion, Hip abd/add Seated Reps: 12 leg presses on Nustep x12 NuStep Minutes: 12 NuStep Workload: 2 Assessment Current Status: Good Progress PT Skilled Nursing Goals Meter Calibrator Goals PT Skilled Nursing Goals Time Frame: Oct 12, 2019 Roll Left & Right (QC): 6 Sit to Lying (QC): 6 Lying-Sitting on Side/Bed(QC): 6 Sit to Stand (QC): 6 Chair/Bqn-hf-Byflt Xfer(QC): 6 Toilet Transfer (QC): 6 Car Transfer (QC): 6 Does the Patient Walk: Yes Walk 10 feet (QC): 6 Walk 50ft with 2 Turns (QC): 6 Walk 150 ft (QC): 6 Walking 10ft on Uneven Surface: 6 1 Step (curb) (QC): 6 4 Steps (QC): 9 12 Steps (QC): 9 Picking up an Object (QC): 6 Does the Pt use WC or Scooter?: No Type: N/A Type: N/A PT Plan Treatment/Plan Treatment Plan: Continue Plan of Care Treatment Plan: Bed Mobility, Education, Functional Activity Ronit, Functional Strength, Gait, Safety, Therapeutic Exercise, Transfers Treatment Duration: Oct 12, 2019 Frequency: At least 5 of 7 days/Wk (IRF) Estimated Hrs Per Day: 1.5 hours per day Patient and/or Family Agrees t: Yes Safety Risks/Education Patient Education: Gait Training, Transfer Techniques, Correct Positioning, Disease Process, Safety Issues Teaching Recipient: Patient Teaching Methods: Demonstration, Discussion Response to Teaching: Verbalize Understanding, Return Demonstration, Reinforcement Needed Time/GCodes Time In: 1115 Time Out: 1200 Total Billed Treatment Time: 45 Total Billed Treatment 1,EX30,GT15m NEDRA ALVARADO PTA Sep 28, 2019 12:04 POS
--- NOTE | 2019-09-28 12:19 | Cardiology Progress Note ---
Subjective Date Seen by Provider: Sep 28, 2019 Time Seen by Provider: 12:17 Subjective/Events-last exam Patient is in bed, no new complaint Review of Systems General: No Chills, No Night Sweats; Fatigue; No Malaise, No Appetite, No Other HEENT: No Head Aches, No Visual Changes, No Eye Pain, No Ear Pain, No Dysphasia, No Sinus Congestion, No Post Nasal Drip, No Sore Throat, No Other Pulmonary: Dyspnea; No Cough, No Pleuritic Chest Pain, No Other Cardiovascular: No: Chest Pain, Palpitations, Orthopnea, Paroxysmal Noc. Dyspnea, Edema, Lt Headedness, Other Objective-Cardiology Exam Last Set of Vital Signs Vital Signs 09/25/19 09/28/19 09/28/19 09/28/19 15:48 06:19 06:41 09:00 Temp 36.8 Pulse 48 Resp 18 B/P (MAP) 109/61 (77) Pulse Ox 93 O2 Delivery Room Air O2 Flow Rate 3.00 Capillary Refill : I&O Intake and Output 09/28/19 00:00 Intake Total 850 ml Output Total 800 ml Balance 50 ml Intake Oral 850 ml Output Urine Total 800 ml General: Alert, Oriented X3, Cooperative, No Acute Distress HEENT: Atraumatic, PERRLA Neck: Supple Lungs: Clear to Auscultation, Normal Air Movement Heart: Regular Rate, Normal S1, Normal S2, Other ( II/ CONNIE) Abdomen: Normal Bowel Sounds, Soft Extremities: No Clubbing, No Edema Skin: No Breakdown Neuro: Normal Speech, Cranial Nerves 3-12 NL (COCHLEAR IMPLANT) Psych/Mental Status: Mood NL A/P-Cardiology Admission Diagnosis Acute CVA Intracranial bleed Paroxysmal atrial fibrillation Hypertension Assessment/Plan Status post intracranial bleed, left occipital intraparenchymal and left posteri or subdural hemorrhage, was evaluated and treated by neurology, currently recovering and receiving physical therapy and occupational therapy. Managed by primary care team Hypotensive episode, had multiple episode of hypotension while in , family r eporting questionable history of hypotension in the past, better at this time. Continue to monitor Paroxysmal atrial fibrillation, currently off oral anticoagulation due to intracranial bleed. Was maintained on Coumadin. Maintained on amiodarone, change the dose to once daily and monitor HR Coronary artery disease multiple interventions in the past done by Dr. Pandey reporting history of 10 stents in the past, 5 balloon angioplasties. Reporting last intervention done 5 years ago. Last LHC done January 2018 revealed 50% diag, 30-50% prox RCA and 30-40% ostial RCA. Most recent stress test done January 2019 revealing no ischemia or infarct. CHF, ischemic cardiomyopathy, most recent 2D Echo done March 2019 revealed EF 45%, grade 1 diastolic dysfunction, aortic valve sclerosis without stenosis. 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 Follows with neurology in . 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 Weebr History of thoracic aortic dissection, treated conservatively in [place] in the past, continue to monitor Labile hypertension with episode of hypotension, blood pressure improved, no further episodes of hypotension, continue to monitor. Hyperlipidemia, monitor lipids CKD- continue to monitor renal function Elevated LFT's- trending down, continue to monitor. Generalized weakness and debility. Clinical Quality Measures DVT/VTE Risk/Contraindication: Risk Factor Score Per Nursin RFS Level Per Nursing on Admit: 2=Moderate GABBY ALCANTAR MD Sep 28, 2019 12:19 pm POS
--- NOTE | 2019-09-28 15:29 | Therapy Group Daily Note ---
Therapy Daily Group Note Patient Education Topic Other List Below (understanding pain and ways to manage it) Exercises LE Seated Exercise, UE Exercise Session Ratio (pt:therapist): 4:1 Goal of Session: UE/LE Strengthing, Other (list) (better understading of p[ain and ways to manage it , exercise and pain) Goal Met for this Session: Yes Pt Benefit of Group: F/U Use of Strategies @Home, Socialization Other/Notes Pt. participated in group OT PT session this date. Pt. was escorted with use of AD . Pt. introduced self and contributed to discussion dominguez about how he manages pain and discomfort at home. Education encompassed explanation of acute and chronic pain as well as the brain and its function with regards to pain. Management techniques ie, heat, cold, massage, vibration, trigger point release and exercise were discussed and demonstrated. Pts all participated in seated U&L extremity exercises as well, Pt. to room to bed after with call rose at hand. Start Time: 13:00 Stop Time: 14:15 Total Billed Treatment Time: 75 Total Billed Treatment 1,GRP NEDRA ALVARADO RELIGIOUS ASSISTANT Sep 28, 2019 15:29 POS
--- NOTE | 2019-09-28 15:42 | Occupational Ther Daily Note ---
OT Current Status-Daily Note Subjective LATE ENTRY FOR 09/27/2019. Pt alert, lying in bed. Pt agrees to therapy. No c/o pain at this time. Mental Status/Objective Patient Orientation: Person, Place, Time, Situation ADL-Treatment Therapy Code Descriptions/Definitions Functional [place] Measure: 0=Not Assessed/NA 4=Minimal Assistance 1=Total Assistance 5=Supervision or Setup 2=Maximal Assistance 6=Modified [place] 3=Moderate Assistance 7=Complete IndependenceSCALE: Activities may be completed with or without assistive devices. 0-Ikajwaqeqg-lcdidwu completes the activity by him/herself with no assistance from a helper. 5-Set-up or Clean-up Assistance-helper sets up or cleans up; patient completes activity. [place] assists only prior to or following the activity. 4-Supervision or Touching Assistance-helper provides verbal cues and/or touching/steadying and/or contact guard assistance as patient completes activity. Assistance may be provided throughout the activity or intermittently. 3-Partial/Moderate Assistance-helper does LESS THAN HALF the effort. [place] lifts, holds or supports trunk or limbs, but provides less than half the effort. 2-Substantial/Maximal Assistance-helper does MORE THAN HALF the effort. [place] lifts or holds trunk or limbs and provides more than half the effort. 4-Vbnwrweiy-puvxws does ALL the effort. Patient does none of the effort to complete the activity. Or, the assistance of 2 or more helpers is required for the patient to complete the activity. If activity was not attempted, code reason: 7-Patient Refused. 9-Not Applicable-not attempted and the patient did not perform the activity before the current illness, exacerbation or injury. 10-Not Attempted due to Environmental Limitations-(lack of equipment, weather restraints, etc.). 88-Not Attempted due to Medical Conditions or Safety Concerns. Toileting Hygiene (QC): 4 (Supervision using FWW and grabbars.) Toilet Transfer (QC): 4 (Using FWW and grabbars) After therapy, pt lying in bed with call light/phone in reach. All needs met in room. OT Short Term Goals Short Term Goals Eatin Oral hygiene: 6 Upper body dressin Lower body dressin (met) OT Implementation Director Goals Fpc Goals Time Frame: Oct 02, 2019 Eating (QC): 6 (met) Oral Hygiene (QC): 6 (met) Toileting Hygiene (QC): 6 Shower/Bathe Self (QC): 4 Upper Body Dressing (QC): 6 Lower Body Dressing (QC): 6 On/Off Footwear (QC): 6 Additional Goals: 1-Demonstrate ADL Tasks, 2-Verbalize Understanding, 3-ImproveStrength/Ronit 1=Demonstrate adherence to instructed precautions during ADL tasks. 2=Patient will verbalize/demonstrate understanding of assistive devices/modifications for ADL. 3=Patient will improve strength/tolerance for activity to enable patient to perform ADL's. OT Education/Plan Problem List/Assessment Assessment: Decreased Activ Tolerance, Impaired Self-Care Skills Discharge Recommendations Plan/Recommendations: Continue POC Treatment Plan/Plan of Care Patient would benefit from OT for education, treatment and training to promote independence in ADL's, mobility, safety and/or upper extremity function for ADL's. Plan of Care: ADL Retraining, Caregiver Training, Functional Mobility, Group Exercise/Act as Ind, UE Funct Exercise/Act Treatment Duration: Oct 02, 2019 Frequency: At least 5 of 7 days/Wk (IRF) Estimated Hrs Per Day: 1.5 hours per day Agreement: Yes Rehab Potential: Guarded (atient ) Time/GCodes Start Time: 12:00 Stop Time: 12:15 Total Time Billed (hr/min): 15 Billed Treatment Time 1 visit-ADL 1 (15 min) LUBA MCCARTHY Sep 28, 2019 15:42 POS
[2019-09-28 18:00] VITALS: BP 136/77
[2019-09-29 06:02] VITALS: BP 129/76
[2019-09-29] MEDS: MULTIVIT W/MINERALS TAB (THERAGRAN M) PO SCH (06:04)
[2019-09-29] MEDS: VITAMIN D3 1,000 UNITS (CHOLECALCIFEROL) TABLET PO SCH (06:05)
--- NOTE | 2019-09-29 08:52 | Physical Therapy Daily Note ---
PT Daily Note-Current Subjective Pt denies pain. Pt agreeable to PT. Pt states several times "I am ready to go home. Can you send me home?" Transfers SCALE: Activities may be completed with or without assistive devices. 1-Rrxdcxaktu-mlozhtg completes the activity by him/herself with no assistance from a helper. 5-Set-up or Clean-up Assistance-helper sets up or cleans up; patient completes activity. [place] assists only prior to or following the activity. 4-Supervision or Touching Assistance-helper provides verbal cues and/or touching/steadying and/or contact guard assistance as patient completes activity. Assistance may be provided throughout the activity or intermittently. 3-Partial/Moderate Assistance-helper does LESS THAN HALF the effort. [place] lifts, holds or supports trunk or limbs, but provides less than half the effort. 2-Substantial/Maximal Assistance-helper does MORE THAN HALF the effort. [place] lifts or holds trunk or limbs and provides more than half the effort. 3-Uddkclvki-aforwh does ALL the effort. Patient does none of the effort to complete the activity. Or, the assistance of 2 or more helpers is required for the patient to complete the activity. If activity was not attempted, code reason: 7-Patient Refused. 9-Not Applicable-not attempted and the patient did not perform the activity before the current illness, exacerbation or injury. 10-Not Attempted due to Environmental Limitations-(lack of equipment, weather restraints, etc.). 88-Not Attempted due to Medical Conditions or Safety Concerns. Weight Bearing Full Weight Bearing Full Weight Bearing Exercises Supine Ex: Ankle pumps Seated Therapy Exercises: Ankle pumps, Long arc quads NuStep Minutes: 11 NuStep Workload: 5 Treatments Pt transfers mod (I) all levels. Pt amb with FWW and CGA. Quick shuffling gait. Pt amb 500ft, stopping periodically (x4) to work on static balance x 30sec each. Pt back to bed with call light and ambu alarm activated. Assessment Current Status: Good Progress No LOB, pt steady throughout treatment. Mod (I) with all mobility. Pt moves quickly. Pt mariann very well, no complaints voiced. Pt resting with all needs met post therapy. PT Core Piler Goals Core Piler Goals PT Core Piler Goals Time Frame: Oct 12, 2019 Roll Left & Right (QC): 6 Sit to Lying (QC): 6 Lying-Sitting on Side/Bed(QC): 6 Sit to Stand (QC): 6 Chair/Fcj-ck-Xsmbn Xfer(QC): 6 Toilet Transfer (QC): 6 Car Transfer (QC): 6 Does the Patient Walk: Yes Walk 10 feet (QC): 6 Walk 50ft with 2 Turns (QC): 6 Walk 150 ft (QC): 6 Walking 10ft on Uneven Surface: 6 1 Step (curb) (QC): 6 4 Steps (QC): 9 12 Steps (QC): 9 Picking up an Object (QC): 6 Does the Pt use WC or Scooter?: No Type: N/A Type: N/A PT Plan Treatment/Plan Treatment Plan: Continue Plan of Care Treatment Plan: Bed Mobility, Education, Functional Activity Ronit, Functional Strength, Gait, Safety, Therapeutic Exercise, Transfers Treatment Duration: Oct 12, 2019 Frequency: At least 5 of 7 days/Wk (IRF) Estimated Hrs Per Day: 1.5 hours per day Patient and/or Family Agrees t: Yes Time/GCodes Time In: 830 Time Out: 900 Total Billed Treatment Time: 30 Total Billed Treatment 1, gait 15min, Ther ex 15min MOUNIKA JO CPTA Sep 29, 2019 08:52 POS
[2019-09-29] MEDS: CEPHALEXIN 250 MG (KEFLEX) CAP PO SCH ×3 (09:36→21:15)
[2019-09-29] MEDS: PANTOPRAZOLE 40 MG (PROTONIX) TAB PO SCH (09:36)
[2019-09-29] MEDS: AMIODARONE 200 MG (CORDARONE) TAB PO SCH (09:38)
[2019-09-29] MEDS: ASPIRIN E.C. 325 MG (ECOTRIN) TABLET PO SCH (09:38)
[2019-09-29] MEDS: LORATADINE (CLARITIN) 10 MG TAB PO SCH (09:39)
[2019-09-29] MEDS: FINASTERIDE (PROSCAR) 5 MG TAB PO SCH (09:39)
[2019-09-29] MEDS: ALLOPURINOL 100 MG (ZYLOPRIM) TAB PO SCH (09:39)
[2019-09-29] MEDS: rOPINIRole 0.25 MG (REQUIP) TAB PO SCH ×2 (09:40→21:14)
[2019-09-29] MEDS: SENNA W/DOCUSATE (SENOKOT S) TABLET PO SCH ×2 (09:42→21:15)
[2019-09-29] MEDS: POLYETHYLENE GLYCOL 17 GM (MIRALAX) PACK PO SCH ×2 (09:42→21:15)
[2019-09-29] MEDS: HYDROCORTISONE 1% CREAM 30 GM TUBE TOP SCH ×2 (09:45→21:14)
--- NOTE | 2019-09-29 09:46 | NUR ---
Pt refused hydrocortisone cream, when RN asked pt where they have been applying it ? Pt states, "I can't hear you, I pulled part of my hearing aide off," pt pointed to the floor, RN picked it up & gave to pt, pt placed hearing aide back in ear. PCT assisting pt to get cleaned up & ready to go on day pass w family later today. Pt states, "I'm ready to go home & stay there, but, I guess I have to do this first."
--- NOTE | 2019-09-29 11:46 | NUR ---
Pt left w his daughters per w/c to go on day pass to home w family. Pt & daughter signed release of liability. Provided w phone # for when they return
[2019-09-29] MEDS: DOCUSATE SODIUM 100 MG (COLACE) CAP PO PRN (21:14)
--- NOTE | 2019-09-29 21:15 | NUR ---
pt return from day pass with family
[2019-09-29 21:16] VITALS: BP 130/78
[2019-09-30] MEDS: MULTIVIT W/MINERALS TAB (THERAGRAN M) PO SCH (05:50)
[2019-09-30] MEDS: VITAMIN D3 1,000 UNITS (CHOLECALCIFEROL) TABLET PO SCH (05:50)
[2019-09-30] MEDS: LACTULOSE SYRUP 10GM/15ML (ENULOSE) 30ML UDC PO PRN (05:51)
[2019-09-30 06:05] VITALS: BP 150/83
[2019-09-30] MEDS: ASPIRIN E.C. 325 MG (ECOTRIN) TABLET PO SCH (10:10)
[2019-09-30] MEDS: rOPINIRole 0.25 MG (REQUIP) TAB PO SCH ×2 (10:10→20:28)
[2019-09-30] MEDS: ALLOPURINOL 100 MG (ZYLOPRIM) TAB PO SCH (10:10)
[2019-09-30] MEDS: FINASTERIDE (PROSCAR) 5 MG TAB PO SCH (10:10)
[2019-09-30] MEDS: LORATADINE (CLARITIN) 10 MG TAB PO SCH (10:10)
[2019-09-30] MEDS: AMIODARONE 200 MG (CORDARONE) TAB PO SCH (10:11)
[2019-09-30] MEDS: CEPHALEXIN 250 MG (KEFLEX) CAP PO SCH ×3 (10:11→20:28)
[2019-09-30] MEDS: PANTOPRAZOLE 40 MG (PROTONIX) TAB PO SCH (10:11)
[2019-09-30] MEDS: POLYETHYLENE GLYCOL 17 GM (MIRALAX) PACK PO SCH ×2 (10:12→20:39)
[2019-09-30] MEDS: HYDROCORTISONE 1% CREAM 30 GM TUBE TOP SCH ×2 (10:15→20:29)
[2019-09-30] MEDS: SENNA W/DOCUSATE (SENOKOT S) TABLET PO SCH ×2 (10:15→20:39)
--- NOTE | 2019-09-30 11:22 | PM&R Progress Note ---
Subjective HPI/CC On Admission Date Seen by Provider: Sep 30, 2019 Time Seen by Provider: 11:30 Subjective/Events-last exam Patient in a good mood today Had a really good visit yesterday at home with his family Bowels move this morning Eyes are red giving Refresh Tears No blood thinner initiated due to recent brain bleed Set to go to [facility] tomorrow on skilled care Maintained on Mueller catheter Overall doing well Checked meds and labs Reviewed therapy notes Conferred with tow driver of Systems General: Fatigue Neurological: Weakness, Confusion Objective Exam Vital Signs Vital Signs Date Time Temp Pulse Resp B/P (MAP) Pulse Ox O2 Delivery O2 Flow Rate FiO2 09/30/19 19:00 55 09/30/19 18:00 36.9 18 146/80 (102) 96 Room Air 09/29/19 13:35 2.00 Capillary Refill : General Appearance: No Apparent Distress, WD/WN, Chronically ill HEENT: PERRL/EOMI, TMs Normal, Normal ENT Inspection, Pharynx Normal, Moist Mucous Membranes Neck: Full Range of Motion, Normal Inspection, Non Tender, Supple, Carotid Bruit Respiratory: Chest Non Tender, Lungs Clear, Normal Breath Sounds, No Accessory Muscle Use, No Respiratory Distress Cardiovascular: Regular Rate, Rhythm, No Gallop, No JVD, Normal Peripheral Pulses, Systolic Murmur, Gallop/S3 Gastrointestinal: Normal Bowel Sounds, No Organomegaly, No Pulsatile Mass, Non Tender, Soft Back: Normal Inspection, No CVA Tenderness, No Vertebral Tenderness Extremity: Normal Capillary Refill, Normal Inspection, Normal Range of Motion, Non Tender, No Calf Tenderness, No Pedal Edema Neurologic/Psychiatric: Alert, safe expert II-XII Norm as Tested, Depressed Affect, Disoriented, Motor Weakness (severe 4/5 legs and arms) Skin: Normal Color, Warm/Dry Lymphatic: No Adenopathy Results/Procedures Lab Patient resulted labs reviewed. FIM Transfers Therapy Code Descriptions/Definitions Functional [place] Measure: 0=Not Assessed/NA 4=Minimal Assistance 1=Total Assistance 5=Supervision or Setup 2=Maximal Assistance 6=Modified [place] 3=Moderate Assistance 7=Complete IndependenceSCALE: Activities may be completed with or without assistive devices. 9-Pnusmqilsy-jycdqsx completes the activity by him/herself with no assistance f rom a helper. 5-Set-up or Clean-up Assistance-helper sets up or cleans up; patient completes activity. [place] assists only prior to or following the activity. 4-Supervision or Touching Assistance-helper provides verbal cues and/or touching/steadying and/or contact guard assistance as patient completes activity. Assistance may be provided throughout the activity or intermittently. 3-Partial/Moderate Assistance-helper does LESS THAN HALF the effort. [place] lifts, holds or supports trunk or limbs, but provides less than half the effort. 2-Substantial/Maximal Assistance-helper does MORE THAN HALF the effort. [place] lifts or holds trunk or limbs and provides more than half the effort. 0-Orvqwzqzp-ebpisv does ALL the effort. Patient does none of the effort to complete the activity. Or, the assistance of 2 or more helpers is required for the patient to complete the activity. If activity was not attempted, code reason: 7-Patient Refused. 9-Not Applicable-not attempted and the patient did not perform the activity before the current illness, exacerbation or injury. 10-Not Attempted due to Environmental Limitations-(lack of equipment, weather restraints, etc.). 88-Not Attempted due to Medical Conditions or Safety Concerns. Roll Left to Right (QC): 6 Sit to Lying (QC): 6 Sit to Stand (QC): 6 Chair/Axy-bg-Jlpvm Xfer(QC): 6 Car Transfer (QC): 3 Gait Training Does the Patient Walk?: Yes Distance: 75' x2 Walk 10 feet (QC): 5 Walk 50 ft with 2 Turns(QC): 5 Walk 150 ft (QC): 5 Walking 10ft/uneven surface-QC: 3 Gait Persons Needed: 1 Gait Assistive Device: FWW Wheelchair Training Does the Pt Use a Wheelchair?: Yes Wheel 50 ft with 2 turns (QC): 4 Wheel 150 ft (QC): 9 Type of Wheelchair: Manual Stair Training 1 Step (curb) (QC): 3 4 Steps (QC): 88 12 Steps (QC): 9 Balance Picking up an Object (QC): 6 (from sitting position) ADL-Treatment Eating (QC): 6 Oral Hygiene (QC): 4 Shower/Bathe Self (QC): 3 Upper Body Dressing (QC): 5 Lower Body Dressing (QC): 4 On/Off Footwear (QC): 6 Toileting Hygiene (QC): 4 (Supervision using FWW and grabbars.) Toilet Transfer (QC): 4 (Using FWW and grabbars) Assessment/Plan Assessment and Plan Assess & Plan/Chief Complaint Assessment: Intraparenchymal hematoma Falls Confusion 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 Extensive CAD AF [place] edema-improved with hydrocortisone cream now resolved Plan: NH at DC IRF protocol in meantime Monitor orthostasis Prognosis guarded at this time Dr Lovett consultation is appreciated Patient improved but overall prognosis guarded NH VCV Tuesday (1) Intraparenchymal hematoma of brain (2) Orthostasis (3) COPD (chronic obstructive pulmonary disease) (4) Atrial fibrillation (5) CAD (coronary artery disease) (6) NPH (normal pressure hydrocephalus) (7) Renal insufficiency (8) Vertigo (9) Weakness (10) PVD (peripheral vascular disease) (11) Cognitive deficits (12) SYL (obstructive sleep apnea) (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
[2019-09-30 18:00] VITALS: BP 146/80
--- NOTE | 2019-09-30 19:06 | NUR ---
bedside report received from MAGGIE RAMIRES, assume care of pt
--- NOTE | 2019-09-30 20:30 | NUR ---
pt refused miralax & Senokot pericare done prior to applying hydrocortisone cream
[2019-10-01 06:25] LABS: BASOPHILS % (AUTO) 0 % (0-10); EOSINOPHILS # (AUTO) 0.3 10^3/uL (0.0-0.3); EOSINOPHILS % (AUTO) 4 % (0-10); HEMATOCRIT 34 % (40-54); HEMOGLOBIN 10.6 G/DL (13.3-17.7); LYMPHOCYTES # (AUTO) 1.5 X 10^3 (1.0-4.0); LYMPHOCYTES % (AUTO) 23 % (12-44); MEAN CORPUSCULAR HEMOGLOBIN 27 PG (25-34); MEAN CORPUSCULAR HGB CONC 32 G/DL (32-36); MEAN CORPUSCULAR VOLUME 86 FL (80-99); MEAN PLATELET VOLUME 9.5 FL (7.4-10.4); MONOCYTES # (AUTO) 0.4 X 10^3 (0.0-1.0); MONOCYTES % (AUTO) 6 % (0-12); NEUTROPHILS # (AUTO) 4.4 X 10^3 (1.8-7.8); NEUTROPHILS % (AUTO) 67 % (42-75); PLATELET COUNT 300 10^3/uL (130-400); RED CELL DISTRIBUTION WIDTH 16.3 % (10.0-14.5); WHITE BLOOD COUNT 6.6 10^3/uL (4.3-11.0)
[2019-10-01 06:27] VITALS: BP 122/72
[2019-10-01] MEDS: VITAMIN D3 1,000 UNITS (CHOLECALCIFEROL) TABLET PO SCH (06:45)
[2019-10-01] MEDS: MULTIVIT W/MINERALS TAB (THERAGRAN M) PO SCH (06:45)
[2019-10-01 06:52] LABS: ALBUMIN 3.2 GM/DL (3.2-4.5); BILIRUBIN,TOTAL 0.7 MG/DL (0.1-1.0); CALCIUM 8.7 MG/DL (8.5-10.1); CREATININE SERUM 1.32 MG/DL (0.60-1.30); TOTAL PROTEIN 6.1 GM/DL (6.4-8.2)
--- NOTE | 2019-10-01 07:11 | NUR ---
bedside report given to ISHAAN RAMIRES
[2019-10-01] MEDS ORDERED: AMIO200T4 PO (08:17)
[2019-10-01] MEDS ORDERED: ASPI325T32 PO (08:17)
[2019-10-01] MEDS ORDERED: CITA20TA9 PO (08:17)
--- NOTE | 2019-10-01 08:18 | Discharge Inst-Skilled Nursing ---
Discharge Inst-Skilled NF Reconcile Patient Problems Problems Reviewed?: Yes Patient Instructions Patient Problems: Hemorrhagic CVA AF Urinary retention In-dwelling catheter Goal: Return home Consult/Follow Up/Orders Follow Up Appt.: Dr Butcher in [address] Chambers Urology in 2 weeks Cardiology appt in 2 weeks Skilled NF Admit to: [facility] ([facility]) I certify that [facility] services are required to be given on an inpatient basis because of the above named patient's need for intermediate care on a continuing basis for the conditions(s) for which he/she was receiving inpatient hospital services prior to his/her transfer to the [facility]. Assisted Facility Order: Nursing Services, Inbound Telemarketer-Evaluate & Treat, Physical Therapy-Evaluate & Treat, Speech Language-Evaluate & Treat Oxygen Delivery Method: Room Air Discharge Diet: Cardiac Diet Daily Activity as Tolerated: Yes Resuscitation Status: Full Code New & Resume Previous Orders New Medications: Amiodarone HCl (Amiodarone HCl) 200 Mg Tablet 200 MG PO DAILY for 30 Days, TAB Aspirin (Aspirin EC) 325 Mg Tablet. 325 MG PO DAILY for 30 Days, TAB Citalopram Hydrobromide (Citalopram HBr) 20 Mg Tablet 20 MG PO DAILY for 30 Days, TAB Continued Medications: Acetaminophen (Tylenol Extra Strength) 500 Mg Tablet 1000 MG PO Q6H PRN for PAIN-MILD (1-4), TAB Allopurinol (Allopurinol) 100 Mg Tablet 100 MG PO DAILY, TAB Cetirizine HCl (Zyrtec) 10 Mg Tablet 10 MG PO DAILY, TAB Cholecalciferol (Vitamin D3) (Vitamin D3) 2,000 Unit Capsule 2000 UNIT PO DAILY, CAP Finasteride (Finasteride) 5 Mg Tablet 5 MG PO DAILY, TAB Fluticasone Propionate (Flonase Allergy Relief) 9.9 Ml [place].susp 1 SPRAY NS HS PRN for ALLERGIES, EA Multivit-Min/FA/Lycopene/Lut (Centrum Silver Tablet) 1 Each Tablet 0.5 TAB PO BID, TAB Pantoprazole Sodium (Pantoprazole Sodium) 40 Mg Tablet.dr 40 MG PO DAILY, TAB Ropinirole HCl (Ropinirole HCl) 0.25 Mg Tablet 0.25 MG PO 1600,2100, TAB Vitamin B Complex (Vitamin B Complex) 1 Each Tablet 1 TAB PO DAILY, TAB Discontinued Medications: Amiodarone HCl (Amiodarone HCl) 200 Mg Tablet 200 MG PO BID, TAB Atorvastatin Calcium (Atorvastatin Calcium) 80 Mg Tablet 80 MG PO DAILY, TAB Citalopram Hydrobromide (Celexa) 40 Mg Tablet 40 MG PO DAILY, TAB Losartan Potassium (Losartan Potassium) 50 Mg Tablet 50 MG PO DAILY, TAB Spironolactone (Spironolactone) 25 Mg Tablet 25 MG PO DAILY, TAB Tamsulosin HCl (Flomax) 0.4 Mg Cap 0.4 MG PO HS, CAP Warfarin Sodium (Warfarin Sodium) 3 Mg Tablet 3 MG PO HS, TAB Deneen Fernandez Oct 01, 2019 08:17 DENEEN FERNANDEZ DO Oct 01, 2019 08:18 POS
--- NOTE | 2019-10-01 08:19 | Discharge Summary ---
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 Extensive CAD AF [place]kin edema-improved with hydrocortisone cream Plan: NH at [facility] IRF protocol in meantime Monitor orthostasis Prognosis guarded at this time Dr Lovett consultation is appreciated Patient improved but overall prognosis guarded NH VCV Tuesday pass tomorrow (1) Intraparenchymal hematoma of brain (2) Orthostasis (3) COPD (chronic obstructive pulmonary disease) (4) Atrial fibrillation (5) CAD (coronary artery disease) (6) NPH (normal pressure hydrocephalus) (7) Renal insufficiency (8) Vertigo (9) Weakness (10) PVD (peripheral vascular disease) (11) Cognitive deficits (12) SYL (obstructive sleep apnea) (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 (14) Brain aneurysm (15) Ischemic cardiomyopathy (16) Gastric reflux (17) Renal lithiasis (18) Intracranial shunt (19) Hx of CABG (20) S/P AAA repair Discharge Summary Discharge Physical Examination Allergies: Coded Allergies: amoxicillin (Verified Allergy, Severe, RASH, pt has received Ancef & Cefepime in the past, 05/25/19) clavulanic acid (Verified Allergy, Severe, RASH, 12/26/18) Iodinated Contrast Media (Verified Allergy, Unknown, 12/26/18) Vitals & I&Os Vital Signs Date Time Temp Pulse Resp B/P (MAP) Pulse Ox O2 Delivery O2 Flow Rate FiO2 10/01/19 13:00 65 10/01/19 10:08 Room Air 10/01/19 06:27 37.1 18 122/72 (89) 92 09/29/19 13:35 2.00 General Appearance: Alert Respiratory: Clear to Auscultation Cardiovascular: Regular Rate Neuro: Normal Gait, Normal Speech, Strength at 5/5 X4 Ext Psych/Mental Status: Mental Status NL, Mood NL Hospital Course Was the Problem List Reviewed?: Yes Hospital Course: Pt had an uneventful two week hospital course after he was admitted after a cerebral bleed after multiple strokes in the past. He was very lethargic and confused with delirium, Keppra DC and cardiology was consulted for hypotension and gave pt IV fluids which resolved the issue.Overall he progressed and participated in all therapy, he did require a urinary catheter to be maintained until follow up with Dr. [facility] in [place]. His regular human resources operations specialist is in . He will be off Coumadin until further notice due to the history of the cerebral bleed, and he was transferred to [facility] on skilled care on Dr. Butcher's service. Labs (last 24 hrs) Laboratory Tests 09/18/19 13:25: Lab Scanned Report Referred Lab Report 09/19/19 05:10: White Blood Count 7.3, Red Blood Count 3.80L, Hemoglobin 10.5L, Hematocrit 33L, Mean Corpuscular Volume 87, Mean Corpuscular Hemoglobin 28, Mean Corpuscular Hemoglobin Concent 32, Red Cell Distribution Width 16.4H, Platelet Count 259, Mean Platelet Volume 10.0, Neutrophils (%) (Auto) 68, Lymphocytes (%) (Auto) 21, Monocytes (%) (Auto) 9, Eosinophils (%) (Auto) 2, Basophils (%) (Auto) 0, Neutrophils # (Auto) 5.0, Lymphocytes # (Auto) 1.6, Monocytes # (Auto) 0.7, Eosinophils # (Auto) 0.1, Basophils # (Auto) 0.0, Sodium Level 136, Potassium Level 4.3, Chloride Level 104, Carbon Dioxide Level 22, Anion Gap 10, Blood Urea Nitrogen 25H, Creatinine 1.50H, Estimat Glomerular Filtration Rate 45, BUN/Creatinine Ratio 17, Glucose Level 99, Calcium Level 8.8, Corrected Calcium 9.3, Magnesium Level 2.2, Total Bilirubin 0.8, Aspartate Amino Transf (AST/SGOT) 108H, Alanine Aminotransferase (ALT/SGPT) 198H, Alkaline Phosphatase 96, B-Type Natriuretic Peptide 109.1H, Total Protein 6.4, Albumin 3.4 09/20/19 05:17: White Blood Count 7.1, Red Blood Count 3.85L, Hemoglobin 10.7L, Hematocrit 34L, Mean Corpuscular Volume 87, Mean Corpuscular Hemoglobin 28, Mean Corpuscular Hemoglobin Concent 32, Red Cell Distribution Width 16.4H, Platelet Count 252, Mean Platelet Volume 9.9, Neutrophils (%) (Auto) 70, Lymphocytes (%) (Auto) 21, Monocytes (%) (Auto) 8, Eosinophils (%) (Auto) 2, Basophils (%) (Auto) 0, Neutrophils # (Auto) 5.0, Lymphocytes # (Auto) 1.5, Monocytes # (Auto) 0.5, Eosinophils # (Auto) 0.1, Basophils # (Auto) 0.0, Sodium Level 137, Potassium Level 4.4, Chloride Level 105, Carbon Dioxide Level 22, Anion Gap 10, Blood Urea Nitrogen 22H, Creatinine 1.37H, Estimat Glomerular Filtration Rate 50, BUN/Creatinine Ratio 16, Glucose Level 88, Calcium Level 8.9, Corrected Calcium 9.4, Total Bilirubin 0.9, Aspartate Amino Transf (AST/SGOT) 76H, Alanine Aminotransferase (ALT/SGPT) 170H, Alkaline Phosphatase 96, Total Protein 6.4, Albumin 3.4 09/22/19 05:05: White Blood Count 8.2, Red Blood Count 3.89L, Hemoglobin 10.6L, Hematocrit 33L, Mean Corpuscular Volume 84, Mean Corpuscular Hemoglobin 27, Mean Corpuscular Hemoglobin Concent 32, Red Cell Distribution Width 16.4H, Platelet Count 271, Mean Platelet Volume 9.5, Sodium Level 137, Potassium Level 4.0, Chloride Level 105, Carbon Dioxide Level 19L, Anion Gap 13, Blood Urea Nitrogen 21H, Creatinine 1.39H, Estimat Glomerular Filtration Rate 49, BUN/Creatinine Ratio 15, Glucose Level 99, Calcium Level 8.6, Corrected Calcium 9.2, Total Bilirubin 0.8, Aspartate Amino Transf (AST/SGOT) 38H, Alanine Aminotransferase (ALT/SGPT) 102H, Alkaline Phosphatase 93, Total Protein 6.3L, Albumin 3.3 09/22/19 14:30: Urine Color AMBERH, Urine Clarity SL CLOUDY, Urine pH 5.5, Urine Specific Gratz 1.025H, Urine Protein TRACE, Urine Glucose (UA) NEGATIVE, Urine Ketones TRACEH, Urine Nitrite NEGATIVE, Urine Bilirubin 1+H, Urine Urobilinogen 0.2, Urine Leukocyte Esterase 2+H, Urine RBC (Auto) 2+H, Urine RBC NONE, Urine WBC 10-25H, Urine Crystals NONE, Urine Bacteria MODERATEH, Urine Casts NONE, Urine Mucus MODERATEH, Urine Culture Indicated YES 09/24/19 05:06: White Blood Count 7.9, Red Blood Count 3.87L, Hemoglobin 10.6L, Hematocrit 33L, Mean Corpuscular Volume 85, Mean Corpuscular Hemoglobin 27, Mean Corpuscular Hemoglobin Concent 32, Red Cell Distribution Width 16.4H, Platelet Count 293, Mean Platelet Volume 9.7, Prothrombin Time 14.5, INR Comment 1.1, Activated Partial Thromboplast Time 37H, Sodium Level 137, Potassium Level 4.1, Chloride Level 105, Carbon Dioxide Level 20L, Anion Gap 12, Blood Urea Nitrogen 21H, Creatinine 1.55H, Estimat Glomerular Filtration Rate 43, BUN/Creatinine Ratio 14, Glucose Level 86, Calcium Level 8.6, Corrected Calcium 9.2, Total Bilirubin 0.7, Aspartate Amino Transf (AST/SGOT) 36H, Alanine Aminotransferase (ALT/SGPT) 78H, Alkaline Phosphatase 87, Total Protein 6.3L, Albumin 3.3 10/01/19 05:50: White Blood Count 6.6, Red Blood Count 3.91L, Hemoglobin 10.6L, Hematocrit 34L, Mean Corpuscular Volume 86, Mean Corpuscular Hemoglobin 27, Mean Corpuscular Hemoglobin Concent 32, Red Cell Distribution Width 16.3H, Platelet Count 300, Mean Platelet Volume 9.5, Sodium Level 140, Potassium Level 4.0, Chloride Level 109H, Carbon Dioxide Level 22, Anion Gap 9, Blood Urea Nitrogen 16, Creatinine 1.32H, Estimat Glomerular Filtration Rate 52, BUN/Creatinine Ratio 12, Glucose Level 78, Calcium Level 8.7, Corrected Calcium 9.3, Total Bilirubin 0.7, Aspartate Amino Transf (AST/SGOT) 32, Alanine Aminotransferase (ALT/SGPT) 47, Alkaline Phosphatase 92, Total Protein 6.1L, Albumin 3.2, Neutrophils (%) (Auto) 67, Lymphocytes (%) (Auto) 23, Monocytes (%) (Auto) 6, Eosinophils (%) (Auto) 4, Basophils (%) (Auto) 0, Neutrophils # (Auto) 4.4, Lymphocytes # (Auto) 1.5, Monocytes # (Auto) 0.4, Eosinophils # (Auto) 0.3, Basophils # (Auto) 0.0 Microbiology 09/22/19 Urine Culture - Final, Complete Proteus mirabilis Enterococcus faecalis Pending Labs Microbiology Date/Time Source Procedure Growth Status 09/22/19 14:30 Urine Indwelling Cath (Quick Sketch Artist) Urine Culture - Final Proteus mirabilis Enterococcus faecalis Complete Laboratory Tests 09/18/19 13:25: Lab Scanned Report Referred Lab Report 09/19/19 05:10: White Blood Count 7.3, Red Blood Count 3.80, Hemoglobin 10.5, Hematocrit 33, Jessica n Corpuscular Volume 87, Mean Corpuscular Hemoglobin 28, Mean Corpuscular Hemoglobin Concent 32, Red Cell Distribution Width 16.4, Platelet Count 259, Mean Platelet Volume 10.0, Neutrophils (%) (Auto) 68, Lymphocytes (%) (Auto) 21, Monocytes (%) (Auto) 9, Eosinophils (%) (Auto) 2, Basophils (%) (Auto) 0, Neutrophils # (Auto) 5.0, Lymphocytes # (Auto) 1.6, Monocytes # (Auto) 0.7, Eo sinophils # (Auto) 0.1, Basophils # (Auto) 0.0, Sodium Level 136, Potassium Level 4.3, Chloride Level 104, Carbon Dioxide Level 22, Anion Gap 10, Blood Urea Nitrogen 25, Creatinine 1.50, Estimat Glomerular Filtration Rate 45, BUN/Creatinine Ratio 17, Glucose Level 99, Calcium Level 8.8, Corrected Calcium 9.3, Magnesium Level 2.2, Total Bilirubin 0.8, Aspartate Amino Transf (AST/SGOT) 108, Alanine Aminotransferase (ALT/SGPT) 198, Alkaline Phosphatase 96, B-Type Natriuretic Peptide 109.1, Total Protein 6.4, Albumin 3.4 09/20/19 05:17: White Blood Count 7.1, Red Blood Count 3.85, Hemoglobin 10.7, Hematocrit 34, Jessica n Corpuscular Volume 87, Mean Corpuscular Hemoglobin 28, Mean Corpuscular Hemoglobin Concent 32, Red Cell Distribution Width 16.4, Platelet Count 252, Mean Platelet Volume 9.9, Neutrophils (%) (Auto) 70, Lymphocytes (%) (Auto) 21, Monocytes (%) (Auto) 8, Eosinophils (%) (Auto) 2, Basophils (%) (Auto) 0, Neutrophils # (Auto) 5.0, Lymphocytes # (Auto) 1.5, Monocytes # (Auto) 0.5, Eos inophils # (Auto) 0.1, Basophils # (Auto) 0.0, Sodium Level 137, Potassium Level 4.4, Chloride Level 105, Carbon Dioxide Level 22, Anion Gap 10, Blood Urea Nitrogen 22, Creatinine 1.37, Estimat Glomerular Filtration Rate 50, BUN/Creatinine Ratio 16, Glucose Level 88, Calcium Level 8.9, Corrected Calcium 9.4, Total Bilirubin 0.9, Aspartate Amino Transf (AST/SGOT) 76, Alanine Aminotr ansferase (ALT/SGPT) 170, Alkaline Phosphatase 96, Total Protein 6.4, Albumin 3.4 09/22/19 05:05: White Blood Count 8.2, Red Blood Count 3.89, Hemoglobin 10.6, Hematocrit 33, Mean Corpuscular Volume 84, Mean Corpuscular Hemoglobin 27, Mean Corpuscular Hemoglobin Concent 32, Red Cell Distribution Width 16.4, Platelet Count 271, Mean Platelet Volume 9.5, Sodium Level 137, Potassium Level 4.0, Chloride Level 105, Carbon Dioxide Level 19, Anion Gap 13, Blood Urea Nitrogen 21, Creatinine 1.39, Estimat Glomerular Filtration Rate 49, BUN/Creatinine Ratio 15, Glucose Level 99, Calcium Level 8.6, Corrected Calcium 9.2, Total Bilirubin 0.8, Aspartate Amino Transf (AST/SGOT) 38, Alanine Aminotransferase (ALT/SGPT) 102, Alkaline Phosphatase 93, Total Protein 6.3, Albumin 3.3 09/22/19 14:30: Urine Color VALARIE, Urine Clarity SL CLOUDY, Urine pH 5.5, Urine Specific Gratz 1.025, Urine Protein TRACE, Urine Glucose (UA) NEGATIVE, Urine Ketones TRACE, Urine Nitrite NEGATIVE, Urine Bilirubin 1+, Urine Urobilinogen 0.2, Urine Leukocyte Esterase 2+, Urine RBC (Auto) 2+, Urine RBC NONE, Urine WBC 10-25, Urine Crystals NONE, Urine Bacteria MODERATE, Urine Casts NONE, Urine Mucus MODERATE, Urine Culture Indicated YES 09/24/19 05:06: White Blood Count 7.9, Red Blood Count 3.87, Hemoglobin 10.6, Hematocrit 33, Mean Corpuscular Volume 85, Mean Corpuscular Hemoglobin 27, Mean Corpuscular Hemoglobin Concent 32, Red Cell Distribution Width 16.4, Platelet Count 293, Mean Platelet Volume 9.7, Prothrombin Time 14.5, INR Comment 1.1, Activated Partial Thromboplast Time 37, Sodium Level 137, Potassium Level 4.1, Chloride Level 105, Carbon Dioxide Level 20, Anion Gap 12, Blood Urea Nitrogen 21, Creatinine 1.55, Estimat Glomerular Filtration Rate 43, BUN/Creatinine Ratio 14, Glucose Level 86, Calcium Level 8.6, Corrected Calcium 9.2, Total Bilirubin 0.7, Aspartate Amino Transf (AST/SGOT) 36, Alanine Aminotransferase (ALT/SGPT) 78, Alkaline Phosphatase 87, Total Protein 6.3, Albumin 3.3 10/01/19 05:50: White Blood Count 6.6, Red Blood Count 3.91, Hemoglobin 10.6, Hematocrit 34, Mean Corpuscular Volume 86, Mean Corpuscular Hemoglobin 27, Mean Corpuscular Hemoglobin Concent 32, Red Cell Distribution Width 16.3, Platelet Count 300, Mean Platelet Volume 9.5, Sodium Level 140, Potassium Level 4.0, Chloride Level 109, Carbon Dioxide Level 22, Anion Gap 9, Blood Urea Nitrogen 16, Creatinine 1.32, Estimat Glomerular Filtration Rate 52, BUN/Creatinine Ratio 12, Glucose Level 78, Calcium Level 8.7, Corrected Calcium 9.3, Total Bilirubin 0.7, Aspartate Amino Transf (AST/SGOT) 32, Alanine Aminotransferase (ALT/SGPT) 47, Alkaline Phosphatase 92, Total Protein 6.1, Albumin 3.2, Neutrophils (%) (Auto) 67, Lymphocytes (%) (Auto) 23, Monocytes (%) (Auto) 6, Eosinophils (%) (Auto) 4, Basophils (%) (Auto) 0, Neutrophils # (Auto) 4.4, Lymphocytes # (Auto) 1.5, Mon ocytes # (Auto) 0.4, Eosinophils # (Auto) 0.3, Basophils # (Auto) 0.0 Discharge Home Medications: Active Scripts Active Citalopram HBr (Citalopram Hydrobromide) 20 Mg Tablet 20 Mg PO DAILY 30 Days Aspirin EC (Aspirin) 325 Mg Tablet.dr 325 Mg PO DAILY 30 Days Amiodarone HCl 200 Mg Tablet 200 Mg PO DAILY 30 Days Reported Vitamin B Complex 1 Each Tablet 1 Tab PO DAILY Finasteride 5 Mg Tablet 5 Mg PO DAILY Tylenol Extra Strength (Acetaminophen) 500 Mg Tablet 1,000 Mg PO Q6H PRN Vitamin D3 (Cholecalciferol (Vitamin D3)) 2,000 Unit Capsule 2,000 Unit PO DAILY Centrum Silver Tablet (Multivit-Min/FA/Lycopene/Lut) 1 Each Tablet 0.5 Tab PO BID Zyrtec (Cetirizine HCl) 10 Mg Tablet 10 Mg PO DAILY Ropinirole HCl 0.25 Mg Tablet 0.25 Mg PO 1600,2100 Allopurinol 100 Mg Tablet 100 Mg PO DAILY Pantoprazole Sodium 40 Mg Tablet.dr 40 Mg PO DAILY Flonase Allergy Relief (Fluticasone Propionate) 9.9 Ml [place].susp 1 [place] NS HS PRN Instructions to patient/family Please see electronic discharge instructions given to patient. 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
--- NOTE | 2019-10-01 08:40 | Cardiology Progress Note ---
Subjective Date Seen by Provider: Oct 01, 2019 Time Seen by Provider: 09:00 Subjective/Events-last exam Patient is with PT. Denies any chest pain, dyspnea, dizziness or lightheadedness. Review of Systems General: No Chills, No Night Sweats; Fatigue; No Malaise, No Appetite, No Other HEENT: No Head Aches, No Visual Changes, No Eye Pain, No Ear Pain, No Dysphasia, No Sinus Congestion, No Post Nasal Drip, No Sore Throat, No Other Pulmonary: No Dyspnea, No Cough, No Pleuritic Chest Pain, No Other Cardiovascular: No: Chest Pain, Palpitations, Orthopnea, Paroxysmal Noc. Dyspnea, Edema, Lt Headedness, Other Objective-Cardiology Exam Last Set of Vital Signs Vital Signs 09/29/19 10/01/19 10/01/19 13:35 06:27 07:00 Temp 37.1 Pulse 56 Resp 18 B/P (MAP) 122/72 (89) Pulse Ox 92 O2 Delivery Room Air O2 Flow Rate 2.00 Capillary Refill : I&O Intake and Output 10/01/19 00:00 Intake Total 600 ml Output Total 1325 ml Balance -725 ml Intake Oral 600 ml Output Urine Total 1325 ml # Bowel Movements 2 General: Alert, Oriented X3, Cooperative, No Acute Distress HEENT: Atraumatic, PERRLA Neck: Supple Lungs: Clear to Auscultation, Normal Air Movement Heart: Regular Rate, Normal S1, Normal S2, Other ( II/ CONNIE) Abdomen: Normal Bowel Sounds, Soft Extremities: No Clubbing, No Edema Skin: No Breakdown Neuro: Normal Speech, Cranial Nerves 3-12 NL (COCHLEAR IMPLANT) Psych/Mental Status: Mood NL Results Lab Laboratory Tests 10/01/19 05:50 A/P-Cardiology Admission Diagnosis Acute CVA Intracranial bleed Paroxysmal atrial fibrillation Hypertension Assessment/Plan Status post intracranial bleed, left occipital intraparenchymal and left posterior subdural hemorrhage, was evaluated and treated by neurology, currently recovering and receiving physical therapy and occupational therapy. Managed by primary care team Hypotensive episode, had multiple episode of hypotension while in , family reporting questionable history of hypotension in the past, better at this time. Continue to monitor Paroxysmal atrial fibrillation, currently off oral anticoagulation due to intracranial bleed. Was maintained on Coumadin. Maintained on amiodarone, continue to monitor. Coronary artery disease multiple interventions in the past done by Dr. Pandey reporting history of 10 stents in the past, 5 balloon angioplasties. Reporting last intervention done 5 years ago. Last LHC done January 2018 revealed 50% diag, 30-50% prox RCA and 30-40% ostial RCA. Most recent stress test done January 2019 revealing no ischemia or infarct. CHF, ischemic cardiomyopathy, most recent 2D Echo done March 2019 revealed EF 45%, grade 1 diastolic dysfunction, aortic valve sclerosis without stenosis. 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 Follows with neurology in . 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 Weber History of thoracic aortic dissection, treated conservatively in [place] in the past, continue to monitor Labile hypertension with episode of hypotension, blood pressure improved, no further episodes of hypotension, continue to monitor. Hyperlipidemia, monitor lipids CKD- continue to monitor renal function Elevated LFT's- improved after discontinuing statin, continue to monitor. Generalized weakness and debility. Patient was seen and evaluated with Marsha, examination performed, management plan was discussed, agree with the current scribed note, I made few changes to the note using Italic font Patient is laying down in bed, no new complaint, asking to go home Receiving physical therapy Lungs were clear to auscultation, heart is regular Continue on current medication monitor blood pressure, monitor heart rate. No changes were recommended Okay for discharge from cardiology standpoint Clinical Quality Measures DVT/VTE Risk/Contraindication: Risk Factor Score Per Nursin RFS Level Per Nursing on Admit: 2=Moderate Supervisory-Addendum Brief Supervisory Addendum Participated in pt care: history, MDM, physical Personally performed: exam, history, MDM Care discussed with: MARSHA FARIAS Oct 01, 2019 08:40 GABBY HEREDIA MD Oct 01, 2019 09:47 POS
--- NOTE | 2019-10-01 08:59 | Physical Therapy Daily Note ---
PT Daily Note-Current Subjective Agreeable to PT. "I'll do whatever you want to get out of here." Pt expresses that he really wants to go home. Pain Numeric Pain Scale: 0-No Pain Mental Status Patient Orientation: Person, Place, Time, Situation Transfers SCALE: Activities may be completed with or without assistive devices. 9-Qpfvokjslq-gywglyk completes the activity by him/herself with no assistance from a helper. 5-Set-up or Clean-up Assistance-helper sets up or cleans up; patient completes activity. [place] assists only prior to or following the activity. 4-Supervision or Touching Assistance-helper provides verbal cues and/or touching/steadying and/or contact guard assistance as patient completes activity. Assistance may be provided throughout the activity or intermittently. 3-Partial/Moderate Assistance-helper does LESS THAN HALF the effort. [place] lifts, holds or supports trunk or limbs, but provides less than half the effort. 2-Substantial/Maximal Assistance-helper does MORE THAN HALF the effort. [place] lifts or holds trunk or limbs and provides more than half the effort. 9-Ilnmgstot-hbjagz does ALL the effort. Patient does none of the effort to complete the activity. Or, the assistance of 2 or more helpers is required for the patient to complete the activity. If activity was not attempted, code reason: 7-Patient Refused. 9-Not Applicable-not attempted and the patient did not perform the activity before the current illness, exacerbation or injury. 10-Not Attempted due to Environmental Limitations-(lack of equipment, weather restraints, etc.). 88-Not Attempted due to Medical Conditions or Safety Concerns. Roll Left & Right (QC): 6 Sit to Lying (QC): 6 Lying to Sitting/Side of Bed(Q: 6 Sit to Stand (QC): 5 Chair/Sni-ax-Xzqul Xfer(QC): 5 Toilet Transfer (QC): 5 Car Transfer (QC): 5 Supervision with all upright activities for safety purposes with intermittent cues for safety and sequencing. Pt tends to move quickly and is a bit impulsive. Weight Bearing Full Weight Bearing Full Weight Bearing Gait Training Does the Patient Walk?: Yes Distance: 200 ft x 2 Walk 10 feet (QC): 5 Walk 50 ft with 2 Turns(QC): 5 Walk 150 ft (QC): 5 Walking 10ft/uneven surface-QC: 4 (CGA for safety) Gait Assistive Device: FWW pt tends to walk fast with decreased step length and decreased heel strike/toe off. Wheelchair Training Does the Pt Use a Wheelchair?: No Stair Training Stair Training: Handrails/: 2 handrails 1 Step (curb) (QC): 4 4 Steps (QC): 4 12 Steps (QC): 9 Stairs: Pattern: Step to intermittent cues for safety; CGA for safety Balance Picking up an Object (QC): 88 Treatments Functional transfer and gait training; safety education. Assessment Current Status: Good Progress Pt has made functional progress. He is indep with bed mobility but needs Supervision for transfers and gait with CGA on stairs and uneven surfaces due to decreased safety awareness as well as moving quickly. He is very pleasant and cooperative and may continue to improve with continued intervention on a skilled level. PT Half-Way Goals Manager Hematology Goals PT Manager Hematology Goals Time Frame: Oct 12, 2019 Roll Left & Right (QC): 6 (met) Sit to Lying (QC): 6 (met) Lying-Sitting on Side/Bed(QC): 6 (met) Sit to Stand (QC): 6 (scored 5) Chair/Ium-sb-Lvdff Xfer(QC): 6 (scored 5) Toilet Transfer (QC): 6 (scored 5) Car Transfer (QC): 6 (score 5) Does the Patient Walk: Yes Walk 10 feet (QC): 6 (scored 5) Walk 50ft with 2 Turns (QC): 6 (scored 5) Walk 150 ft (QC): 6 (scored 5) Walking 10ft on Uneven Surface: 6 (scored 4) 1 Step (curb) (QC): 6 (scored 4) 4 Steps (QC): 9 (scored 4) 12 Steps (QC): 9 Picking up an Object (QC): 6 (scored 88) Does the Pt use WC or Scooter?: No Type: N/A Type: N/A PT Plan Problem List Problem List: Activity Tolerance, Functional Strength, Safety, Balance, Gait, Transfer Treatment/Plan Treatment Plan: Discontinue PT Treatment Plan: Bed Mobility, Education, Functional Activity Ronit, Functional Strength, Gait, Safety, Therapeutic Exercise, Transfers Treatment Duration: Oct 12, 2019 Frequency: At least 5 of 7 days/Wk (IRF) Estimated Hrs Per Day: 1.5 hours per day Patient and/or Family Agrees t: Yes Safety Risks/Education Patient Education: Safety Issues Teaching Recipient: Patient Teaching Methods: Discussion Response to Teaching: Reinforcement Needed Discharge Recommendations Therapy Discharge Recommendati: Post Acute PT Time/GCodes Time In: 815 Time Out: 845 Total Billed Treatment Time: 30 Total Billed Treatment visit FA 30 LUBA SALAS PT Oct 01, 2019 08:59 POS
[2019-10-01] MEDS: POLYETHYLENE GLYCOL 17 GM (MIRALAX) PACK PO SCH (09:00)
--- NOTE | 2019-10-01 09:03 | Therapy Team Discharge Summary ---
Therapy Discharge Summary Discharge Recommendations Date of Discharge 10/01/19 Therapy D/C Recommendations: Long-Term (TCU/NH) (PT) Physical Therapy This patient was admitted to ARU post acute hospital stay due to a intraparenchymal hematoma. Prior to his hospital stay, he wasliving at home with his at a mod indep level. Upon admission to this unit, he was CG to min assist with functional transfers and gait; his balance was impaired as was functional safety awareness; he could only traverse one step with min assist. Pt has made functional progress, however still has some safety concerns. At last visit, he was indep with bed mobility, Supervision with transfers and gait and CGA with stairs. Goals have not beem met fully. Pt to [facility] this date. Will DC from ARU at this time. Occupational Therapy Decreased Activ Tolerance, Impaired Self-Care Skills PT Prison Goals Radiator Tester Goals PT Prison Goals Time Frame: Oct 12, 2019 Roll Left to Right (QC): 6 (met) Sit to Lying (QC): 6 (met) Lying-Sitting on Side/Bed(QC): 6 (met) Sit to Stand (QC): 6 (scored 5) Chair/Yez-ph-Dwlts Xfer(QC): 6 (scored 5) Car Transfer (QC): 6 (score 5) Does the Patient Walk: Yes Walk 10 feet (QC): 6 (scored 5) Walk 10ft-Uneven Surface(QC): 6 (scored 4) Walk 50ft with 2 Turns (QC): 6 (scored 5) Walk 150 ft (QC): 6 (scored 5) Does the Pt use WC or Scooter?: No 1 Step (curb) (QC): 6 (scored 4) 4 Steps (QC): 9 (scored 4) 12 Steps (QC): 9 Picking up an Object (QC): 6 (scored 88) OT Radiator Tester Goals Prison Goals Time Frame: Oct 02, 2019 Eating (QC): 6 (met) Oral Hygiene (QC): 6 (met) Shower/Bathe Self (QC): 4 Upper Body Dressing (QC): 6 Lower Body Dressing (QC): 6 On/Off Footwear (QC): 6 Toileting Hygiene (QC): 6 Toilet/Commode Transfer (QC): 6 (scored 5) Additional Goals: 1-Demonstrate ADL Tasks, 2-Verbalize Understanding, 3- ImproveStrength/Ronit 1=Demonstrate adherence to instructed precautions during ADL tasks. 2=Patient will verbalize/demonstrate understanding of assistive devices/modifications for ADL. 3=Patient will improve strength/tolerance for activity to enable patient to perform ADL's. Speech Radiator Tester Goals Radiator Tester Goals Patient will improve cognitive-communication abilities in order to complete daily tasks with minimal assist. Patient will maintain adequate nutrition/hydration via safe effective swallow function. LUBA SALAS PT Oct 01, 2019 09:03 POS
--- NOTE | 2019-10-01 09:38 | Occupational Ther Daily Note ---
OT Current Status-Daily Note Subjective Pt alert, lying in bed. Pt agrees to therapy. No c/o pain. Pt to discharge today to [facility]. Pt is NIKOLSKI, uses hearing aides. Mental Status/Objective Patient Orientation: Person, Place, Time, Situation Attachments: Telemetry ADL-Treatment Therapy Code Descriptions/Definitions Functional Swisher Measure: 0=Not Assessed/NA 4=Minimal Assistance 1=Total Assistance 5=Supervision or Setup 2=Maximal Assistance 6=Modified Swisher 3=Moderate Assistance 7=Complete IndependenceSCALE: Activities may be completed with or without assistive devices. 0-Marmfaehjm-ctmttvs completes the activity by him/herself with no assistance from a helper. 5-Set-up or Clean-up Assistance-helper sets up or cleans up; patient completes activity. [place] assists only prior to or following the activity. 4-Supervision or Touching Assistance-helper provides verbal cues and/or touching/steadying and/or contact guard assistance as patient completes activity. Assistance may be provided throughout the activity or intermittently. 3-Partial/Moderate Assistance-helper does LESS THAN HALF the effort. [place] lifts, holds or supports trunk or limbs, but provides less than half the effort. 2-Substantial/Maximal Assistance-helper does MORE THAN HALF the effort. [place] lifts or holds trunk or limbs and provides more than half the effort. 0-Jwazotefh-hkfjhc does ALL the effort. Patient does none of the effort to complete the activity. Or, the assistance of 2 or more helpers is required for the patient to complete the activity. If activity was not attempted, code reason: 7-Patient Refused. 9-Not Applicable-not attempted and the patient did not perform the activity before the current illness, exacerbation or injury. 10-Not Attempted due to Environmental Limitations-(lack of equipment, weather restraints, etc.). 88-Not Attempted due to Medical Conditions or Safety Concerns. Eating (QC): 6 (Pt has demonstrated the ability to complete own set up for meal and use regular utensils.) Oral Hygiene (QC): 6 (Standing at sink, pt able to complete own oral care using FWW and counter to stabilize self.) Bathing Location: L Arm, R Arm, L Upper Leg, R Upper Leg, L Lower Leg (including foot), R Lower Leg (including foot), Chest, Abdomen, Buttocks, Perineal Area Shower/Bathe Self (QC): 5 (After set up then clean up, pt able to complete by self using grabbars, hand held shower and shower bench.) Upper Body Dressing (QC): 5 (After set up, pt able to complete by self.) Lower Body Dressing (QC): 5 (After set up, gathering clothing and threading Mueller catheter through pant leg, pt able to complete own dressing.) Toileting Hygiene (QC): 5 (Assist with emptying Mueller catheter. Pt able to complete all other toileting using grabbars and FWW.) Toilet Transfer (QC): 6 (Using grabbars and FWW, pt able to complete by self.) Footwear (QC) 6 OT Short Term Goals Short Term Goals Eatin Oral hygiene: 6 Upper body dressin Lower body dressin (met) OT [facility] Goals Other Sports Official Goals Time Frame: Oct 02, 2019 Eating (QC): 6 (met) Oral Hygiene (QC): 6 (met) Toileting Hygiene (QC): 6 (not met due to catheter) Shower/Bathe Self (QC): 4 (met-10/01/19) Upper Body Dressing (QC): 6 (not met) Lower Body Dressing (QC): 6 (not met) On/Off Footwear (QC): 6 (met-10/01/19) Additional Goals: 1-Demonstrate ADL Tasks, 2-Verbalize Understanding, 3-Impro veStrength/Ronit 1=Demonstrate adherence to instructed precautions during ADL tasks. 2=Patient will verbalize/demonstrate understanding of assistive devices/modifications for ADL. 3=Patient will improve strength/tolerance for activity to enable patient to perform ADL's. OT Education/Plan Problem List/Assessment Assessment: Decreased Activ Tolerance, Impaired Coordination, Impaired Funct Balance Discharge Recommendations Plan/Recommendations: Discharge/Goals Met (pt to d/c to [facility]) Treatment Plan/Plan of Care Patient would benefit from OT for education, treatment and training to promote independence in ADL's, mobility, safety and/or upper extremity function for ADL's. Plan of Care: ADL Retraining, Caregiver Training, Functional Mobility, Group Exercise/Act as Ind, UE Funct Exercise/Act Treatment Duration: Oct 02, 2019 Frequency: At least 5 of 7 days/Wk (IRF) Estimated Hrs Per Day: 1.5 hours per day Agreement: Yes Rehab Potential: Guarded (atient ) Time/GCodes Start Time: 09:00 Stop Time: 09:30 Total Time Billed (hr/min): 30 Billed Treatment Time 1 visit-ADL 2 (30 min) LUBA MCCARTHY Oct 01, 2019 09:38 POS
[2019-10-01] MEDS: CEPHALEXIN 250 MG (KEFLEX) CAP PO SCH (09:43)
[2019-10-01] MEDS: ALLOPURINOL 100 MG (ZYLOPRIM) TAB PO SCH (09:44)
[2019-10-01] MEDS: PANTOPRAZOLE 40 MG (PROTONIX) TAB PO SCH (09:44)
[2019-10-01] MEDS: rOPINIRole 0.25 MG (REQUIP) TAB PO SCH (09:44)
[2019-10-01] MEDS: AMIODARONE 200 MG (CORDARONE) TAB PO SCH (09:44)
[2019-10-01] MEDS: FINASTERIDE (PROSCAR) 5 MG TAB PO SCH (09:44)
[2019-10-01] MEDS: LORATADINE (CLARITIN) 10 MG TAB PO SCH (09:44)
[2019-10-01] MEDS: ASPIRIN E.C. 325 MG (ECOTRIN) TABLET PO SCH (09:44)
[2019-10-01] MEDS: SENNA W/DOCUSATE (SENOKOT S) TABLET PO SCH (09:44)
[2019-10-01] MEDS: HYDROCORTISONE 1% CREAM 30 GM TUBE TOP SCH (09:46)
--- NOTE | 2019-10-01 12:02 | NUR ---
Discharge Patient discharged as planned to new Medicare skilled placement with [facility]. Their transport has been scheduled for 1300, [place] understands to bring wheelchair and blanket for patient comfort due to winter chill. CARE Assessment completed with patient, processed with [facility]. Faxed orders and CARE to [facility]. Continuum of care packet prepared to accompany patient, including CARE and Advanced Directive. Spouse updated of picker feeder time, she will be here with patient. She confirmed she will update other family members. Unit RN fully updated of all arrangements.
--- NOTE | 2019-10-01 13:28 | NUR ---
provided prayer and Communion.
--- NOTE | 2019-10-01 13:35 | NUR ---
Patient discharged to [facility]. Report called to SULLY Osorio. Patient accompanied by daughter and . Personal items and discharge instructions sent with patient. 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 Daughter says she will see if it is in his personal items that were boxed up the night before. This nurse, housekeeping, and other staff members looked for rosary while stripping room and laundry and dietary called to look for it.
--- NOTE | 2019-10-02 10:18 | Therapy Team Discharge Summary ---
Therapy Discharge Summary Discharge Recommendations Date of Discharge Oct 01, 2019 at 13:35 Therapy D/C Recommendations: Alf (TCU/NH) (PT) Occupational Therapy Decreased Activ Tolerance, Impaired Coordination, Impaired Funct Balance Speech-Language Pathology Patient was admitted to the ARU s/p CVA. Patient was given the SLUMS on admission and was in the moderate dementia range of function. The patient was seen by ST for improving cognitive function. The patient made good progress and met his goals. Patient discharged on 10/01/19 to SNF. He is also discharged from . PT Longterm Goals Heavy Cleaner Goals PT Heavy Cleaner Goals Time Frame: Oct 12, 2019 Roll Left to Right (QC): 6 (met) Sit to Lying (QC): 6 (met) Lying-Sitting on Side/Bed(QC): 6 (met) Sit to Stand (QC): 6 (scored 5) Chair/Fkx-wp-Tflgr Xfer(QC): 6 (scored 5) Car Transfer (QC): 6 (score 5) Does the Patient Walk: Yes Walk 10 feet (QC): 6 (scored 5) Walk 10ft-Uneven Surface(QC): 6 (scored 4) Walk 50ft with 2 Turns (QC): 6 (scored 5) Walk 150 ft (QC): 6 (scored 5) Does the Pt use WC or Scooter?: No 1 Step (curb) (QC): 6 (scored 4) 4 Steps (QC): 9 (scored 4) 12 Steps (QC): 9 Picking up an Object (QC): 6 (scored 88) OT Heavy Cleaner Goals Longterm Goals Time Frame: Oct 02, 2019 Eating (QC): 6 (met) Oral Hygiene (QC): 6 (met) Shower/Bathe Self (QC): 4 (met-10/01/19) Upper Body Dressing (QC): 6 (not met) Lower Body Dressing (QC): 6 (not met) On/Off Footwear (QC): 6 (met-10/01/19) Toileting Hygiene (QC): 6 (not met due to catheter) Toilet/Commode Transfer (QC): 6 (scored 5) Additional Goals: 1-Demonstrate ADL Tasks, 2-Verbalize Understanding, 3- ImproveStrength/Ronit 1=Demonstrate adherence to instructed precautions during ADL tasks. 2=Patient will verbalize/demonstrate understanding of assistive devices/modifications for ADL. 3=Patient will improve strength/tolerance for activity to enable patient to perform ADL's. Speech Longterm Goals Longterm Goals Patient will improve cognitive-communication abilities in order to complete daily tasks with minimal assist. Patient will maintain adequate nutrition/hydration via safe effective swallow function. SYLVIA BECKER Oct 02, 2019 10:17 POS
--- NOTE | 2019-10-02 14:07 | Therapy Team Discharge Summary ---
Therapy Discharge Summary Discharge Recommendations Date of Discharge Oct 01, 2019 at 13:35 Therapy D/C Recommendations: [facility] (TCU/NH) (PT) Occupational Therapy Pt admits with intraparenchymal hematoma dx. Pt's admitting QC's are: LB dressing 3, footwear 3, showering 2, UB dress 5. Pt and OT worked toward increased ADL activity through ADL/ AE training, endurance and strength training and safety. Pt held back by fatigue, BP monitoring, and decreased endurance. Pt d/c to [facility] with d/c QC's as: LB dressing 5, footwear 6, showering 5, UB dress 5. Pt d/c OT services, continuation of OT services recommended at [facility]. Decreased Activ Tolerance, Impaired Coordination, Impaired Funct Balance PT Film Color Tester Goals Longterm Goals PT Film Color Tester Goals Time Frame: Oct 12, 2019 Roll Left to Right (QC): 6 (met) Sit to Lying (QC): 6 (met) Lying-Sitting on Side/Bed(QC): 6 (met) Sit to Stand (QC): 6 (scored 5) Chair/Pas-km-Egdyl Xfer(QC): 6 (scored 5) Car Transfer (QC): 6 (score 5) Does the Patient Walk: Yes Walk 10 feet (QC): 6 (scored 5) Walk 10ft-Uneven Surface(QC): 6 (scored 4) Walk 50ft with 2 Turns (QC): 6 (scored 5) Walk 150 ft (QC): 6 (scored 5) Does the Pt use WC or Scooter?: No 1 Step (curb) (QC): 6 (scored 4) 4 Steps (QC): 9 (scored 4) 12 Steps (QC): 9 Picking up an Object (QC): 6 (scored 88) OT Film Color Tester Goals Longterm Goals Time Frame: Oct 02, 2019 Eating (QC): 6 (met) Oral Hygiene (QC): 6 (met) Shower/Bathe Self (QC): 4 (met-10/01/19) Upper Body Dressing (QC): 6 (not met) Lower Body Dressing (QC): 6 (not met) On/Off Footwear (QC): 6 (met-10/01/19) Toileting Hygiene (QC): 6 (not met due to catheter) Toilet/Commode Transfer (QC): 6 (scored 5) Additional Goals: 1-Demonstrate ADL Tasks, 2-Verbalize Understanding, 3- ImproveStrength/Ronit 1=Demonstrate adherence to instructed precautions during ADL tasks. 2=Patient will verbalize/demonstrate understanding of assistive devices/modifications for ADL. 3=Patient will improve strength/tolerance for activity to enable patient to perform ADL's. Speech Longterm Goals Longterm Goals Patient will improve cognitive-communication abilities in order to complete daily tasks with minimal assist. Patient will maintain adequate nutrition/hydration via safe effective swallow function. ELO BAEZ OTR Oct 02, 2019 14:07 POS
== END 2019-10-01 13:35 | DRG 949 ==
PROVIDERS: ADMIT Internal Medicine; ATTEND Internal Medicine
DX: S06.360D Traumatic hemorrhage of cerebrum, unspecified, without loss of consciousness, subsequent encounter (principal); I67.1 Cerebral aneurysm, nonruptured; G91.2 (Idiopathic) normal pressure hydrocephalus; R42 Dizziness and giddiness; R09.02 Hypoxemia; I48.0 Paroxysmal atrial fibrillation; I13.0 Hypertensive heart and chronic kidney disease with heart failure and stage 1 through stage 4 chronic kidney disease, or unspecified chronic kidney disease; I50.30 Unspecified diastolic (congestive) heart failure; N39.0 Urinary tract infection, site not specified; N18.9 Chronic kidney disease, unspecified; R53.1 Weakness; I95.9 Hypotension, unspecified; R29.6 Repeated falls; I25.5 Ischemic cardiomyopathy; N47.2 Paraphimosis; I71.4 Abdominal aortic aneurysm, without rupture; I25.10 Atherosclerotic heart disease of native coronary artery without angina pectoris; F17.210 Nicotine dependence, cigarettes, uncomplicated; E78.5 Hyperlipidemia, unspecified; J44.9 Chronic obstructive pulmonary disease, unspecified; G47.33 Obstructive sleep apnea (adult) (pediatric); R33.9 Retention of urine, unspecified; N40.1 Benign prostatic hyperplasia with lower urinary tract symptoms; M19.91 Primary osteoarthritis, unspecified site; M10.9 Gout, unspecified; H91.93 Unspecified hearing loss, bilateral; F32.9 Major depressive disorder, single episode, unspecified; Z98.2 Presence of cerebrospinal fluid drainage device; Z97.4 Presence of external hearing-aid; Z95.5 Presence of coronary angioplasty implant and graft
CPT/HCPCS: 36415; 80053; 81000; 83735; 83880; 85025; 85027; 85610; 85730; 87077; 87088; 87186; 94760

== ENCOUNTER 2019-11-03 14:53 | Emergency (ER) | payer MEDICARE ==
[~2019-11-03] VITALS: Ht 182.8 cm; Wt 91.0 kg
[~2019-11-03 14:53] MED LIST changes: +ATOR40TA70 PO; +CHOL20003 PO; +CITA20TA12 PO; +CITA40TA19 PO; +FINA5TAB6 PO; +LEVE500T99 PO; +MULT-1029 PO; +SENN-40 PO; -TAMS0.4C98 PO; +TMSL.4C PO
--- NOTE | 2019-11-03 15:35 | NUR ---
PT RESTING QUIETLY, FAMILY AT BEDSIDE, NO C/O VOICED. PT ANSWERS ALL QUESTIONS APPROPRIATELY AT THIS TIME.
--- NOTE | 2019-11-03 15:57 | Diagnostic Imaging Report ---
PROCEDURE: CT head and CT cervical spine without contrast. TECHNIQUE: Multiple contiguous axial images were obtained through the brain and cervical spine without the use of intravenous contrast. Sagittal and coronal reformations through the cervical spine were then performed. Auto Exposure Controls were utilized during the CT exam to meet ALARA standards for radiation dose reduction. All CT scans use one or more of the following dose optimizing techniques: automated exposure control, MA and/or KvP adjustment based on patient size and exam type or iterative reconstruction. INDICATION: Status post fall today. No current complaints. CORRELATION STUDY: CT head 09/12/2019 FINDINGS: CT HEAD: Left sided frontal ventriculoperitoneal shunt tube remains in place tip coursing to near the foramen of Katz. Additionally, there is rather significant metallic artifact from a cochlear implant over the right temporal region. Postoperative changes of the right mastoid air cells. There has been resolution of the previously noted intraparenchymal hematoma involving the left parieto-occipital region. There has been development of some encephalomalacia in this area likely owing to resultant infarct. Additionally, the previous noted subdural hematoma along the interhemispheric fissure is also essentially resolved. An acute area of intraparenchymal hemorrhage does not appear to be suggested. There are generalized atrophic changes with prominence of ventricles and to a lesser degree sulci pattern. Scattered areas of decreased attenuation favoring likely small vessel ischemic disease. 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 Likely relatively stable in size approximately 4 x 2.6 cm. Additional intracranial vascular calcification is present. Hyperdense MCA sign does not appear to be suggested. Apart from the surgical changes, bony calvarium demonstrates no acute abnormality. CT CERVICAL SPINE: There is straightening and mild reversal of normal cervical lordosis. There is trace anterolisthesis of C4 on C5. Slight anterior wedging C5, C6 and C7 vertebral bodies appearing nonacute. Rather asymmetric disc space narrowing C5-C6, C6-C7 and C7-T1 levels and to a lesser degree C3-C4 levels present. Mild endplate osteophyte formation with minimal encroachment on the canal and foramina. High-degree stenosis does not appear to be suggested. Various degrees of hypertrophic facet arthropathy. Odontoid intact. Lateral masses of C1 and C2 alignment with the occipital condyles maintained. Advanced degenerative changes of the temporomandibular joints. Carotid artery bifurcation calcification. Visualized lung apices unremarkable. IMPRESSION: CT HEAD: 1. Negative for acute traumatic intracranial abnormality. 2. Resolution of the previously noted acute intraparenchymal hematoma and subdural hematoma. There has been development of encephalomalacia of the left parieto-occipital region at this area consistent with resultant infarct. 3. 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 CT CERVICAL SPINE: 1. Negative for acute fracture or traumatic subluxation. 2. Rather pronounced multilevel cervical spondylosis. Dictated by: Dictated on workstation # [id number]
--- NOTE | 2019-11-03 16:22 | NUR ---
THIS RN IN TO UPDATE FAMILY. NO QUESTIONS, PT REPOSITIONED IN BED AT THIS TIME.
--- NOTE | 2019-11-03 16:45 | ED Fall/Injury ---
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 PT REPORTS HE LEANED BACK IN HIS RECLINER ET IT TIPPED OVER W/ HIM IN IT. PT REPORTS HE STRUCK HIS HEAD ON THE FRAME OF THE BED. SMALL ABRASION NOTED TO THE TOP OF PT'S HEAD. DENIES LOC. FAMILY REPORTS PT PT HAD PREVIOUS FALL IN SEPTEMBER ET AT THAT TIME HAD A BRAIN BLEED. PT A/OX3, ANSWERS ALL QUESTIONS APPROPRIATELY. NO OTHER C/O VOICED. Source: patient Exam Limitations: no limitations History of Present Illness Date Seen by Provider: Nov 03, 2019 Allergies and Home Medications Allergies Coded Allergies: amoxicillin (Verified Allergy, Severe, RASH, pt has received Ancef & Cefepime in the past, 05/25/19) clavulanic acid (Verified Allergy, Severe, RASH, 12/26/18) Iodinated Contrast Media (Verified Allergy, Unknown, 12/26/18) Home Medications Acetaminophen 500 Mg Tablet, 1,000 MG PO Q6H PRN for PAIN-MILD (1-4), (Reported) Allopurinol 100 Mg Tablet, 100 MG PO DAILY, (Reported) Amiodarone HCl 200 Mg Tablet, 200 MG PO DAILY Prescribed by: SOLO MENDENHALL on 10/01/19816 Aspirin 325 Mg Tablet.dr, 325 MG PO DAILY Prescribed by: SOLO MENDENHALL on 10/01/19816 Cetirizine HCl 10 Mg Tablet, 10 MG PO DAILY, (Reported) Cholecalciferol (Vitamin D3) 2,000 Unit Capsule, 2,000 UNIT PO DAILY, (Reported) Citalopram Hydrobromide 20 Mg Tablet, 20 MG PO DAILY Prescribed by: SOLO MENDENHALL on 10/01/19816 Finasteride 5 Mg Tablet, 5 MG PO DAILY, (Reported) Fluticasone Propionate 9.9 Ml [place].susp, 1 SPRAY NS HS PRN for ALLERGIES, (Reported) Multivit-Min/FA/Lycopene/Lut 1 Each Tablet, 0.5 TAB PO BID, (Reported) Pantoprazole Sodium 40 Mg Tablet.dr, 40 MG PO DAILY, (Reported) Ropinirole HCl 0.25 Mg Tablet, 0.25 MG PO 1600,2100, (Reported) Vitamin B Complex 1 Each Tablet, 1 TAB PO DAILY, (Reported) Past Eumgyqb-Wfxkyz-Ptquww Hx Patient Social History Alcohol Use: Occasionally Uses Recreational Drug Use: No Smoking Status: Never a Smoker Type Used: Cigarettes 2nd Hand Smoke Exposure: No Recent Foreign Travel: No Contact w/Someone Who Travel: No Recent Infectious Disease Expo: No Recent Hopitalizations: No (12/2018-DIVERTICULITIS/GI BLEED - 03/2019 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) Physical Abuse: No Sexual Abuse: No Mistreated: No Fear: No Immunizations Up To Date Tetanus Booster (TDap): Less than 5yrs PED Vaccines UTD: Yes Date of Pneumonia Vaccine: Jul 17, 2018 Date of Influenza Vaccine: Aug 17, 2019 Seasonal Allergies Seasonal Allergies: Yes Past Medical History Surgeries: Yes Angioplasty, Brain Shunt, Cardiac, Coronary Stent, Ear Surgery, Gallbladder, Neurological, Nose, Vascular Surgery Respiratory: Yes (USES CPAP) Sleep Apnea Currently Using CPAP: Yes Currently Using BIPAP: No Cardiac: Yes Aneurysm, Atrial Fibrillation, Cardiomyopathy, Chronic Edema/Swelling, Coronary Artery Disease, High Cholesterol, Hypertension, Peripheral Vascular Neurological: Yes Vertigo Reproductive Disorders: No Sexually Transmitted Disease: No HIV/AIDS: No Genitourinary: Yes (CHRONIC RENAL INSUFFICIENCY) Benign Prostatic Hyperpl, Kidney Stones, Renal Failure Gastrointestinal: Yes (DIVERTICULITIS WITH GI BLEEDING 12/2018) Abdominal Hernia, Gastrointestinal Bleed, Diverticulosis Musculoskeletal: Yes (RESTLESS LEG SYNDROME; GAIT DISTURBANCE; FALLS) Arthritis, Gout Endocrine: No HEENT: Yes Loss of Vision: Denies Hearing Impairment: Hard of Hearing, Hearing Aide Left Cancer: No Psychosocial: Yes Depression Integumentary: No Blood Disorders: No Adverse Reaction/Blood Tranf: No (N/A) Family Medical History Abdominal aortic aneurysm Arthritis 19 MOTHER Cardiovascular disease 19 FATHER 19 MOTHER G8 SISTER Deafness or hearing loss 19 FATHER 19 MOTHER Hypertension 19 FATHER Myocardial infarction 19 FATHER Osteoporosis 19 MOTHER Heart Disease, Hypertension Physical Exam Vital Signs Vital Signs - First Documented 11/03/19 15:04 Temp 36.4 Pulse 65 Resp 18 B/P (MAP) 165/92 (116) Pulse Ox 95 O2 Delivery Room Air Capillary Refill : Less Than 3 Seconds Height, Weight, BMI Height: 6'0.00" Weight: 206lbs. 5.8oz. 93.869123uh; 27.00 BMI Method:Stated Progress/Results/Core Measures Results/Orders Vital Signs/I&O 11/03/19 15:04 Temp 36.4 Pulse 65 Resp 18 B/P (MAP) 165/92 (116) Pulse Ox 95 O2 Delivery Room Air Blood Pressure Mean: 116 Departure Impression Primary Impression: Fall from chair Additional Impression: Minor head injury Departure-Patient Inst. Referrals: DAPHNE BHATT MD (PCP/Family) Primary Care Physician Patient Instructions: Brain Aneurysm, Minor Head Injury (DC) Add. Discharge Instructions: There were no new injuries seen on your CT scan. The previous bleed appears to be resolved. The aneurysm is stable. Please follow-up with your primary care provider next week. Return to care if you have any worsening symptoms or any other concerns. Your CT images have been clouded to [facility]. All discharge instructions reviewed with patient and/or family. Voiced understanding. GEO FLOWER MD Nov 03, 2019 16:45
[2019-11-03 17:03] VITALS: BP 140/75
--- NOTE | 2019-11-03 17:03 | NUR ---
PT DISCHARGED TO FACILITY W/ FAMILY ET INSTR. PT TO F/U W/ PCP THIS WEEK. FAMILY VOICED UNDERSTANDING. PT A/OX3, ANSWERS ALL QUESTIONS APPROPRIATELY, NO DISTRESS OR DISCOMFORT NOTED AT THIS TIME.
== END 2019-11-03 17:03 | disposition home or self-care (01) ==
LOC: EDUNIT# 14:53 → ER 14:54
DX: S09.90XA Unspecified injury of head, initial encounter (principal); I12.9 Hypertensive chronic kidney disease with stage 1 through stage 4 chronic kidney disease, or unspecified chronic kidney disease; N18.9 Chronic kidney disease, unspecified; I48.91 Unspecified atrial fibrillation; I25.10 Atherosclerotic heart disease of native coronary artery without angina pectoris; E78.00 Pure hypercholesterolemia, unspecified; M10.9 Gout, unspecified; F32.9 Major depressive disorder, single episode, unspecified; G47.30 Sleep apnea, unspecified; Z87.442 Personal history of urinary calculi; Z99.89 Dependence on other enabling machines and devices; Z88.0 Allergy status to penicillin; Z88.1 Allergy status to other antibiotic agents; Z91.041 Radiographic dye allergy status; Z79.82 Long term (current) use of aspirin; Z79.51 Long term (current) use of inhaled steroids; Z95.5 Presence of coronary angioplasty implant and graft; Z82.49 Family history of ischemic heart disease and other diseases of the circulatory system; W07.XXXA Fall from chair, initial encounter
CPT/HCPCS: 70450; 72125

== ENCOUNTER 2020-03-02 17:28 | Emergency (ER) | payer MEDICARE ==
[~2020-03-02] VITALS: Ht 182.9 cm; Wt 90.7 kg
[~2020-03-02 17:28] MED LIST changes: +ACHD5005 PO; -CETI10TA20 PO; +CETI10TA21 PO; -DUTA0.5C16 PO; +DUTA0.5C17 PO; -HYDR-3812 PO; -MECL-106 PO; +MECL-149 PO
[2020-03-02] MEDS ORDERED: NS IV 500 ML 500 ML ONE (17:31)
[2020-03-02] MEDS ORDERED: NS IV 500 ML 500 ML IV ONE (17:38)
--- NOTE | 2020-03-02 17:47 | ED General ---
General Stated Complaint: WEAKNESS Source of Information: Patient Exam Limitations: No Limitations (EVON MENDOZA MD) History of Present Illness Date Seen by Provider: March 02, 2020 Time Seen by Provider: 17:34 Initial Comments Here by EMS with report of weakness by the long term. States his legs were buckling when they were trying to stand him up. He was in a wheelchair on their arrival. Does have history of atrial fibrillation and CVA. Patient admits to weakness but states feels better now. Poor historian overall and is very hard of hearing. Denies chest pain, breathing problems or abdominal pain. Follows simple commands and answers simple questions. Denies nausea or vomiting. No report of fevers. Blood pressure in normal range as well as oxygen saturation per EMS. Patient does appear globally weak but has no focal deficits otherwise. Timing/Duration: 1 Hour Severity: Moderate Associated Systoms: No Chest Pain, No Cough, No Fever/Chills, No Nausea/Vomiting, No Shortness of Air; Weakness (EVON MENDOZA MD) Allergies and Home Medications Allergies Coded Allergies: amoxicillin (Verified Allergy, Severe, RASH, pt has received Ancef & Cefepime in the past, 05/25/19) clavulanic acid (Verified Allergy, Severe, RASH, 12/26/18) Iodinated Contrast Media (Verified Allergy, Unknown, 12/26/18) Home Medications Acetaminophen 500 Mg Tablet, 1,000 MG PO Q6H PRN for PAIN-MILD (1-4), (Reported) Allopurinol 100 Mg Tablet, 100 MG PO DAILY, (Reported) Amiodarone HCl 200 Mg Tablet, 200 MG PO DAILY Prescribed by: SOLO MENDENHALL on 10/01/19816 Aspirin 325 Mg Tablet.dr, 325 MG PO DAILY Prescribed by: SOLO MENDENHALL on 10/01/19816 Cetirizine HCl 10 Mg Tablet, 10 MG PO DAILY, (Reported) Cholecalciferol (Vitamin D3) 2,000 Unit Capsule, 2,000 UNIT PO DAILY, (Reported) Citalopram Hydrobromide 20 Mg Tablet, 20 MG PO DAILY Prescribed by: SOLO MENDENHALL on 10/01/19816 Doxycycline Hyclate 100 Mg Tablet, 100 MG PO BID Prescribed by: GEO TOBAR on 03/02/202207 Finasteride 5 Mg Tablet, 5 MG PO DAILY, (Reported) Fluticasone Propionate 9.9 Ml Dickens.susp, 1 SPRAY NS HS PRN for ALLERGIES, (Reported) Multivit-Min/FA/Lycopene/Lut 1 Each Tablet, 0.5 TAB PO BID, (Reported) Pantoprazole Sodium 40 Mg Tablet.dr, 40 MG PO DAILY, (Reported) Ropinirole HCl 0.25 Mg Tablet, 0.25 MG PO 1600,2100, (Reported) Vitamin B Complex 1 Each Tablet, 1 TAB PO DAILY, (Reported) Patient Home Medication List Home Medication List Reviewed: Yes (block that fell States that) (EVON MENDOZA MD) Review of Systems Review of Systems Constitutional: see HPI; No chills; fever, weakness EENTM: no symptoms reported Respiratory: no symptoms reported Cardiovascular: no symptoms reported Gastrointestinal: No abdominal pain, No nausea, No vomiting Genitourinary: no symptoms reported Psychiatric/Neurological: See HPI (/4) Review of systems Limited due to patient being poor historian but denies any significant review of systems. (EVON MENDOZA MD) All Other Systems Reviewed Negative Unless Noted: Yes (EVON MENDOZA MD) Past Tjqexax-Keywbi-Ahjdln Hx Past Med/Social Hx: Reviewed Nursing Past Med/Soc Hx (EVON MENDOZA MD) Patient Social History Alcohol Use: Denies Use Recreational Drug Use: No Smoking Status: Former Smoker Type Used: Cigarettes 2nd Hand Smoke Exposure: No Recent Hopitalizations: No (12/2018-DIVERTICULITIS/GI BLEED - 03/2019 NPH WITH APPRENTICE PAINTER HAND SHUNT) (EVON MENDOZA MD) Immunizations Up To Date Tetanus Booster (TDap): Less than 5yrs PED Vaccines UTD: Yes Date of Pneumonia Vaccine: Jul 17, 2018 Date of Influenza Vaccine: Aug 17, 2019 (EVON MENDOZA MD) Seasonal Allergies Seasonal Allergies: Yes (EVON MENDOZA MD) Past Medical History Surgeries: Yes Angioplasty, Brain Shunt, Cardiac, Coronary Stent, Ear Surgery, Gallbladder, Neurological, Nose, Vascular Surgery Respiratory: Yes (USES CPAP) Sleep Apnea Currently Using CPAP: Yes Currently Using BIPAP: No Cardiac: Yes Aneurysm, Atrial Fibrillation, Cardiomyopathy, Chronic Edema/Swelling, Coronary Artery Disease, High Cholesterol, Hypertension, Peripheral Vascular Neurological: Yes (NPH, intracranial hemorrhage) Vertigo Reproductive Disorders: No Sexually Transmitted Disease: No HIV/AIDS: No Genitourinary: Yes (CHRONIC RENAL INSUFFICIENCY) Benign Prostatic Hyperpl, Kidney Stones, Renal Failure Gastrointestinal: Yes (DIVERTICULITIS WITH GI BLEEDING 12/2018) Abdominal Hernia, Gastrointestinal Bleed, Diverticulosis Musculoskeletal: Yes (RESTLESS LEG SYNDROME; GAIT DISTURBANCE; FALLS) Arthritis, Gout Endocrine: No HEENT: Yes Loss of Vision: Denies Hearing Impairment: Hard of Hearing, Hearing Aide Left Cancer: No Psychosocial: Yes Depression Integumentary: No Blood Disorders: No Adverse Reaction/Blood Tranf: No (N/A) (EVON MENDOZA MD) Family Medical History Reviewed Nursing Family Hx (EVON MENDOZA MD) Abdominal aortic aneurysm Arthritis 19 MOTHER Cardiovascular disease 19 FATHER 19 MOTHER G8 SISTER Deafness or hearing loss 19 FATHER 19 MOTHER Hypertension 19 FATHER Myocardial infarction 19 FATHER Osteoporosis 19 MOTHER Heart Disease, Hypertension (EVON MENDOZA MD) Physical Exam-Suspected Sepsis Physical Exam Vital Signs Vital Signs - First Documented 03/02/20 17:29 Temp 36.9 Pulse 77 Resp 18 B/P (MAP) 158/96 (116) Pulse Ox 97 O2 Delivery Nasal Cannula O2 Flow Rate 2.00 (GEO FLOWER MD) Vital Signs Capillary Refill : (EVON MENDOZA MD) Height, Weight, BMI Height: 6'0.00" Weight: 206lbs. 5.8oz. 93.925071gk; 27.00 BMI Method:Stated General Appearance: No Apparent Distress, WD/WN, Other (sleepy appearing) HEENT: PERRL/EOMI, Pharynx Normal, Other (mucous membranes moist) Neck: Non Tender, Supple Respiratory: Lungs Clear, Normal Breath Sounds Cardiovascular: Regular Rate, Rhythm, No Murmur Gastrointestinal: Non Tender, Soft Back: Normal Inspection, No CVA Tenderness, No Vertebral Tenderness Extremity: Normal Inspection, Non Tender, No Calf Tenderness Neurologic/Psychiatric: Alert, Other (sleepy and somewhat weak appearing but fo llows simple commands and answer simple questions.) Skin: normal color, warm/dry (EVON MENDOZA MD) Focused Exam Lactate Level 03/02/20 17:25: Lactic Acid Level 2.29*H (GEO FLOWER MD) Lactic Acid Level (GEO FLOWER MD) Progress/Results/Core Measures Suspected Sepsis SIRS Temperature: Pulse: Respiratory Rate: Blood Pressure / Mean: (EVON MENDOZA MD) Results/Orders Lab Results Laboratory Tests Test 03/02/20 17:25 03/02/20 17:45 03/02/20 19:04 Range/Units White Blood Count 8.7 4.3-11.0 10^3/uL Red Blood Count 4.96 4.35-5.85 10^6/uL Hemoglobin 13.4 13.3-17.7 G/DL Hematocrit 41 40-54 % Mean Corpuscular Volume 82 80-99 FL Mean Corpuscular Hemoglobin 27 25-34 PG Mean Corpuscular Hemoglobin Concent 33 32-36 G/DL Red Cell Distribution Width 17.1 H 10.0-14.5 % Platelet Count 293 130-400 10^3/uL Mean Platelet Volume 9.8 7.4-10.4 FL Neutrophils (%) (Auto) 75 42-75 % Lymphocytes (%) (Auto) 15 12-44 % Monocytes (%) (Auto) 10 0-12 % Eosinophils (%) (Auto) 0 0-10 % Basophils (%) (Auto) 0 0-10 % Neutrophils # (Auto) 6.5 1.8-7.8 X 10^3 Lymphocytes # (Auto) 1.3 1.0-4.0 X 10^3 Monocytes # (Auto) 0.8 0.0-1.0 X 10^3 Eosinophils # (Auto) 0.0 0.0-0.3 10^3/uL Basophils # (Auto) 0.0 0.0-0.1 10^3/uL Prothrombin Time 14.3 12.2-14.7 SEC INR Comment 1.1 0.8-1.4 Activated Partial Thromboplast Time 36 H 24-35 SEC Sodium Level 137 135-145 MMOL/L Potassium Level 4.2 3.6-5.0 MMOL/L Chloride Level 103 98-107 MMOL/L Carbon Dioxide Level 19 L 21-32 MMOL/L Anion Gap 15 H 5-14 MMOL/L Blood Urea Nitrogen 14 7-18 MG/DL Creatinine 1.46 H 0.60-1.30 MG/DL Estimat Glomerular Filtration Rate 46 BUN/Creatinine Ratio 10 Glucose Level 136 H 70-105 MG/DL Lactic Acid Level 2.29 *H 0.50-2.00 MMOL/L Calcium Level 8.8 8.5-10.1 MG/DL Corrected Calcium 9.1 8.5-10.1 MG/DL Total Bilirubin 1.0 0.1-1.0 MG/DL Aspartate Amino Transf (AST/SGOT) 22 5-34 U/L Alanine Aminotransferase (ALT/SGPT) 15 0-55 U/L Alkaline Phosphatase 167 H 40-136 U/L Troponin I < 0.028 <0.028 NG/ML Total Protein 7.6 6.4-8.2 GM/DL Albumin 3.6 3.2-4.5 GM/DL Magnesium Level 1.9 1.6-2.4 MG/DL C-Reactive Protein High Sensitivity 10.77 H 0.00-0.50 MG/DL Urine Color YELLOW Urine Clarity CLEAR Urine pH 6.0 5-9 Urine Specific [place]ellen 1.020 1.016-1.022 Urine Protein TRACE H NEGATIVE Urine Glucose (UA) NEGATIVE NEGATIVE Urine Ketones NEGATIVE NEGATIVE Urine Nitrite NEGATIVE NEGATIVE Urine Bilirubin NEGATIVE NEGATIVE Urine Urobilinogen 0.2 < = 1.0 MG/DL Urine Leukocyte Esterase NEGATIVE NEGATIVE Urine RBC (Auto) 1+ H NEGATIVE Urine RBC 2-5 H /HPF Urine WBC 0-2 /HPF Urine Squamous Epithelial Cells 5-10 /HPF Urine Crystals NONE /LPF Urine Bacteria TRACE /HPF Urine Casts NONE /LPF Urine Mucus SMALL H /LPF Urine Culture Indicated NO (GEO FLOWER MD) My Orders Orders - GEO FLOWER MD Hs C Reactive Protein (03/02/20 18:11) Magnesium (03/02/20 18:11) Doxycycline Hyclate Tablet (Vibramycin T (03/02/20 20:45) (GEO FLOWER MD) Medications Given in ED Current Medications Medications Dose Ordered Sig/Jesse Route Start Time Stop Time Status Last Admin Dose Admin Doxycycline Hyclate 100 mg ONCE ONCE PO 03/02/20 20:45 03/02/20 20:46 DC 03/02/20 20:59 100 MG Sodium Chloride 500 ml @ 0 mls/hr Q0M ONCE IV 03/02/20 17:38 03/02/20 17:42 DC 03/02/20 17:40 0 MLS/HR (GEO FLOWER MD) Vital Signs/I&O 03/02/20 03/02/20 03/02/20 17:29 17:29 21:15 Temp 36.9 36.9 Pulse 77 72 Resp 18 18 B/P (MAP) 158/96 (116) 116/88 (116) Pulse Ox 97 97 98 O2 Delivery Nasal Cannula Nasal Cannula Room Air O2 Flow Rate 2.00 2.00 2.00 (GEO FLOWER MD) Vital Signs/I&O Capillary Refill : (EVON MENDOZA MD) Progress Note : Progress Note Seen and evaluated. IV, labs, chest x-ray, EKG, UA, blood cultures and lactic acid ordered. CT head rule out stroke order. We will attempt stroke scale screening. Patient states that he was weak earlier but feels better now. Normal saline 500 mL bolus ordered. Monitor patient. Care transferred to Dr. Tobar at 1800 pending all studies. (EVON MENDOZA MD) Progress Note : Progress Note Workup revealed no specific major concerns. However, there was a slight pleural effusion with elevated CRP. For this reason he was started on doxycycline. Patient's daughter did arrive to the hospital and was invited to his exam room to help with placement of his cochlear implant device and his hearing aid. This improved his mentation significantly. He was able to follow instructions. He stated he was feeling better and stronger. He denied any pain. Daughter reports that he had a recent fall and had some bruises. Most notably there is a bruise over his mid back. This was nontender. 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 There was some mass effect on the brainstem. Daughter reports it has previously been determined no invasive interventions will be pursued to correct or manage his aneurysm because of his age and other risk factors. For this reason further assessment and management of the aneurysm will be deferred to the primary care provider. Patient ultimately was transferred back to the long term. (GEO FLOWER MD) ECG Initial ECG Impression Date: March 02, 2020 Initial ECG Impression Time: 17:34 Initial ECG Rate: 77 Comment Sinus rhythm with left bundle branch block. No evidence of ST elevation PA. Left axis deviation. Similar to previous of 09/19/19. Interpreted by me. (EVON MENDOZA MD) Diagnostic Imaging Diagonstic Imaging: Xray Plain Films/CT/US/NM/MRI: chest Comments Chest x-ray viewed by me and report reviewed. See report below: NAME: ANA WALKER [facility] REC#: [id number] PT STATUS: REG ER : 1935 PHYSICIAN: EVON MENDOZA MD ADMIT DATE: 03/02/20/ER Draft Date of Exam:03/02/20 CHEST 1 VIEW, AP/PA ONLY EXAMINATION: Single view of the chest. INDICATION: Altered mental status and weakness. COMPARISON: Prior study from 09/12/2019. FINDINGS: Cardiomegaly and prominence of the mediastinum are unchanged from the prior examination with stable deviation of the trachea to the right that likely relates to tortuosity of the thoracic aorta. The lungs demonstrate no new infiltrate or consolidation. There may be a trace left effusion. There is no pneumothorax. There is a left-sided APPRENTICE PAINTER HAND shunt catheter. IMPRESSION: Other than a possible small left effusion, the radiographic appearance of the chest appears stable. Prominent mediastinum not significantly changed from the prior examination that may relate to tortuosity or dilation of the thoracic aorta. Dictated on workstation # [id number] Dict: 03/02/201815 Trans: 03/02/20 182 [facility] [id number] Interpreted by: MARIO BRAGG MD Diagonstic Imaging: CT Plain Films/CT/US/NM/MRI: head Comments CT head viewed by me and report reviewed. See report below: NAME: ANA WALKER [facility] REC#: [id number] PT STATUS: REG ER : 1935 PHYSICIAN: EVON MENDOZA MD ADMIT DATE: 03/02/20/ER Signed Date of Exam:03/02/20 CT HEAD WO-R/O STROKE PROCEDURE: CT head w/o, r/o stroke. TECHNIQUE: Multiple contiguous axial images were obtained through the brain without the use of intravenous contrast. Auto Exposure Controls were utilized during the CT exam to meet ALARA standards for radiation dose reduction. INDICATION: Left sided weakness. COMPARISON: Prior study from November 03, 2019. Correlation also made with MRI from 11/16/2017. 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 This previously measured 3.9 x 2.6 cm and now measures 4.1 x 2.9 cm. This exerts increasing mass effect on the brainstem with further distortion of the 4th ventricle. There has been no change in size of the lateral or 3rd ventricles as the ventricles are decompressed by a left transfrontal ventricular shunt catheter. There is streak artifact on the right related to the patient's cochlear implant. There is no finding of acute intracranial hemorrhage. There is no midline shift. No extra-axial fluid collection demonstrated. There is no finding to suggest territorial loss of negro-white differentiation. Mild background microvascular changes within the white matter demonstrate no appreciable interval change. The mastoid air cells appear clear. The paranasal sinuses are clear. Orbital contents are unremarkable. There is no acute calvarial abnormality. IMPRESSION: 1. 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 This results in increasing mass effect on the brainstem with further distortion of the 4th ventricle. 2. Lateral and 3rd ventricles remain appropriate in size as they are decompressed by a left transfrontal ventricular shunt catheter. 3. No finding of acute hemorrhage. 4. No CT evidence of territorial loss of negro-white differentiation. Some scattered microvascular changes within the deep white matter demonstrate no appreciable interval change. Dictated by: Dictated on workstation # [id number] Dict: 03/02/201818 Trans: 03/02/201838 [facility] [id number] Interpreted by: MARIO BRAGG MD Electronically signed by: MARIO BRAGG MD 03/02/201838 (GEO FLOWER MD) Departure Impression Primary Impression: Generalized weakness Additional Impressions: Pleural effusion Brain aneurysm Chronic respiratory failure with hypoxia Contusion of back Qualified Codes: S20.229A - Contusion of unspecified back wall of thorax, initial encounter Disposition: HOME, SELF-CARE Condition: Improved Departure-Patient Inst. Decision time for Depature: 20:41 (GEO FLOWER MD) Referrals: DAPHNE BUTCHER MD (PCP/Family) Primary Care Physician Patient Instructions: Pleural Effusion Add. Discharge Instructions: Complete the prescription for doxycycline. Use oxygen by nasal cannula continuously at 3-4 L/m to keep oxygen saturations greater than [address] Butcher on Tuesday morning for follow-up care. Call the primary care provider or return to the emergency room with any further problems or concerns. Transfer and ambulate with assistance only. Scripts Doxycycline Hyclate (Doxycycline Hyclate) 100 Mg Tablet 100 MG PO BID, #20 TAB 0 Refills Prov: GEO FLOWER MD 03/02/20 Copy Copies To 1: DAPHNE BUTCHER MD, TIMOTHY D MD March 02, 2020 17:47 GEO FLOWER MD March 02, 2020 18:34
[2020-03-02 17:51] LABS: BASOPHILS % (AUTO) 0 % (0-10); EOSINOPHILS % (AUTO) 0 % (0-10); HEMATOCRIT 41 % (40-54); HEMOGLOBIN 13.4 G/DL (13.3-17.7); LYMPHOCYTES # (AUTO) 1.3 X 10^3 (1.0-4.0); LYMPHOCYTES % (AUTO) 15 % (12-44); MEAN CORPUSCULAR HEMOGLOBIN 27 PG (25-34); MEAN CORPUSCULAR HGB CONC 33 G/DL (32-36); MEAN CORPUSCULAR VOLUME 82 FL (80-99); MEAN PLATELET VOLUME 9.8 FL (7.4-10.4); MONOCYTES # (AUTO) 0.8 X 10^3 (0.0-1.0); MONOCYTES % (AUTO) 10 % (0-12); NEUTROPHILS # (AUTO) 6.5 X 10^3 (1.8-7.8); NEUTROPHILS % (AUTO) 75 % (42-75); PLATELET COUNT 293 10^3/uL (130-400); RED CELL DISTRIBUTION WIDTH 17.1 % (10.0-14.5); WHITE BLOOD COUNT 8.7 10^3/uL (4.3-11.0)
[2020-03-02 18:01] LABS: ALBUMIN 3.6 GM/DL (3.2-4.5); CHLORIDE 103 MMOL/L (98-107); POTASSIUM 4.2 MMOL/L (3.6-5.0); SODIUM 137 MMOL/L (135-145)
[2020-03-02 18:02] LABS: CALCIUM 8.8 MG/DL (8.5-10.1); INR 1.1 (0.8-1.4); PROTHROMBIN TIME PATIENT 14.3 SEC (12.2-14.7)
[2020-03-02 18:03] LABS: GLUCOSE 136 MG/DL (70-105)
[2020-03-02 18:04] LABS: TOTAL PROTEIN 7.6 GM/DL (6.4-8.2)
[2020-03-02 18:05] LABS: CARBON DIOXIDE 19 MMOL/L (21-32)
[2020-03-02 18:07] LABS: ALKALINE PHOSPHATASE 167 U/L (40-136); CREATININE SERUM 1.46 MG/DL (0.60-1.30); GFR ESTIMATED 46
[2020-03-02 18:08] LABS: BUN/CREATININE RATIO 10
[2020-03-02 18:10] LABS: ALANINE AMINOTRANSFERASE 15 U/L (0-55)
--- NOTE | 2020-03-02 18:22 | Diagnostic Imaging Report ---
EXAMINATION: Single view of the chest. INDICATION: Altered mental status and weakness. COMPARISON: Prior study from 09/12/2019. FINDINGS: Cardiomegaly and prominence of the mediastinum are unchanged from the prior examination with stable deviation of the trachea to the right that likely relates to tortuosity of the thoracic aorta. The lungs demonstrate no new infiltrate or consolidation. There may be a trace left effusion. There is no pneumothorax. There is a left-sided BARREL LAPPER shunt catheter. IMPRESSION: Other than a possible small left effusion, the radiographic appearance of the chest appears stable. Prominent mediastinum not significantly changed from the prior examination that may relate to tortuosity or dilation of the thoracic aorta. Dictated by: Dictated on workstation # [id number]
[2020-03-02 18:30] LABS: MAGNESIUM 1.9 MG/DL (1.6-2.4)
--- NOTE | 2020-03-02 18:34 | Diagnostic Imaging Report ---
PROCEDURE: CT head w/o, r/o stroke. TECHNIQUE: Multiple contiguous axial images were obtained through the brain without the use of intravenous contrast. Auto Exposure Controls were utilized during the CT exam to meet ALARA standards for radiation dose reduction. INDICATION: Left sided weakness. COMPARISON: Prior study from November 03, 2019. Correlation also made with MRI from 11/16/2017. 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 This previously measured 3.9 x 2.6 cm and now measures 4.1 x 2.9 cm. This exerts increasing mass effect on the brainstem with further distortion of the 4th ventricle. There has been no change in size of the lateral or 3rd ventricles as the ventricles are decompressed by a left transfrontal ventricular shunt catheter. There is streak artifact on the right related to the patient's cochlear implant. There is no finding of acute intracranial hemorrhage. There is no midline shift. No extra-axial fluid collection demonstrated. There is no finding to suggest territorial loss of negro-white differentiation. Mild background microvascular changes within the white matter demonstrate no appreciable interval change. The mastoid air cells appear clear. The paranasal sinuses are clear. Orbital contents are unremarkable. There is no acute calvarial abnormality. IMPRESSION: 1. 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 This results in increasing mass effect on the brainstem with further distortion of the 4th ventricle. 2. Lateral and 3rd ventricles remain appropriate in size as they are decompressed by a left transfrontal ventricular shunt catheter. 3. No finding of acute hemorrhage. 4. No CT evidence of territorial loss of negro-white differentiation. Some scattered microvascular changes within the deep white matter demonstrate no appreciable interval change. Dictated by: Dictated on workstation # [id number]
--- NOTE | 2020-03-02 18:50 | NUR ---
Upon entering room pt noted to have pulled out 20g IV to R AC. Pt easily redirected and agrees upon reinsertion of IV for fluid rehydration.
--- NOTE | 2020-03-02 19:00 | NUR ---
Pt report given to IKE Pratt to assume care of pt at this time.
--- NOTE | 2020-03-02 19:00 | NUR ---
ASSUMED PRIMARY NURSE ROLE , REPORT RECIEVED FROM IKE BEST
[2020-03-02 19:10] LABS: BILIRUBIN,URINE NEGATIVE (NEGATIVE); CLARITY,URINE CLEAR; COLOR,URINE YELLOW; GLUCOSE, URINE (UA) NEGATIVE (NEGATIVE); KETONES,URINE NEGATIVE (NEGATIVE); LEUKOCYTE ESTERASE ,URINE NEGATIVE (NEGATIVE); NITRITE,URINE NEGATIVE (NEGATIVE); PROTEIN,URINE TRACE (NEGATIVE)
[2020-03-02 19:17] LABS: WBC,URINE 0-2 /HPF
[2020-03-02 19:18] LABS: BACTERIA,URINE TRACE /HPF
--- NOTE | 2020-03-02 20:30 | NUR ---
PT'S DAUGHTER ASSISTS WITH ADJUSTING THE PT'S HEARING AIDES. PT SPEECH AND MENTATION GREATLY IMPROVES AFTERWARD.
[2020-03-02] MEDS ORDERED: DOXY100T2 PO ×2 (20:41→22:08)
--- NOTE | 2020-03-02 20:41 | NUR ---
CONTACTED VIA [facility] STAFF AND UPDATED STAFF ON CARE PLAN.
[2020-03-02] MEDS ORDERED: DOXYCYCLINE 100 MG (VIBRAMYCIN) TABLET PO ONE (20:45)
[2020-03-02 21:15] VITALS: BP 116/88
[2020-03-03] MEDS ORDERED: IPRA3AMP31 IH (14:54)
[2020-03-03] MEDS ORDERED: FURO-125 PO (14:54)
== END 2020-03-02 22:34 | disposition home or self-care (01) ==
LOC: EDUNIT# 17:28 → ER 17:29
DX: S20.229A Contusion of unspecified back wall of thorax, initial encounter (principal); I67.1 Cerebral aneurysm, nonruptured; R53.1 Weakness; J90 Pleural effusion, not elsewhere classified; J96.11 Chronic respiratory failure with hypoxia; I48.91 Unspecified atrial fibrillation; I11.9 Hypertensive heart disease without heart failure; I42.9 Cardiomyopathy, unspecified; I73.9 Peripheral vascular disease, unspecified; I25.10 Atherosclerotic heart disease of native coronary artery without angina pectoris; F32.9 Major depressive disorder, single episode, unspecified; Z95.5 Presence of coronary angioplasty implant and graft; Z79.82 Long term (current) use of aspirin; Z86.73 Personal history of transient ischemic attack (TIA), and cerebral infarction without residual deficits; Z88.1 Allergy status to other antibiotic agents; Z91.041 Radiographic dye allergy status; Z79.51 Long term (current) use of inhaled steroids; Z87.891 Personal history of nicotine dependence; Z82.49 Family history of ischemic heart disease and other diseases of the circulatory system; X58.XXXA Exposure to other specified factors, initial encounter
CPT/HCPCS: 36415; 70450; 71045; 80053; 81000; 83605; 83735; 84484; 85025; 85610; 85730; 86141; 87040; 87088; 93005

== ENCOUNTER 2020-03-03 13:11 | Emergency (ER) | payer MEDICARE ==
[~2020-03-03] VITALS: Ht 182.9 cm; Wt 90.9 kg
[~2020-03-03 13:11] MED LIST changes: +DOXY100T2 PO
[2020-03-03] MEDS ORDERED: DEXAMETHASONE 10 MG/ML (DECADRON) 1 ML VIAL IV ONE (13:30)
[2020-03-03] MEDS ORDERED: FUROSEMIDE 40 MG/4 ML INJ (LASIX) IVP ONE (13:30)
[2020-03-03 13:31] LABS: BASOPHILS % (AUTO) 0 % (0-10); EOSINOPHILS % (AUTO) 0 % (0-10); HEMATOCRIT 39 % (40-54); HEMOGLOBIN 12.9 G/DL (13.3-17.7); LYMPHOCYTES # (AUTO) 1.9 X 10^3 (1.0-4.0); LYMPHOCYTES % (AUTO) 17 % (12-44); MEAN CORPUSCULAR HEMOGLOBIN 27 PG (25-34); MEAN CORPUSCULAR HGB CONC 33 G/DL (32-36); MEAN CORPUSCULAR VOLUME 83 FL (80-99); MEAN PLATELET VOLUME 9.6 FL (7.4-10.4); MONOCYTES % (AUTO) 9 % (0-12); NEUTROPHILS # (AUTO) 8.2 X 10^3 (1.8-7.8); NEUTROPHILS % (AUTO) 74 % (42-75); PLATELET COUNT 270 10^3/uL (130-400); RED CELL DISTRIBUTION WIDTH 16.9 % (10.0-14.5); WHITE BLOOD COUNT 11.1 10^3/uL (4.3-11.0)
--- NOTE | 2020-03-03 13:41 | ED Respiratory ---
General Chief Complaint: Respiratory Problems Stated Complaint: RESP. DISTRESS History of Present Illness Date Seen by Provider: March 03, 2020 Time Seen by Provider: 13:15 Initial Comments 85-year-old male seen in this emergency department yesterday returns for shortness of air, cough and congestion, brought by EMS. No report was received from the alf prior to his arrival. He wears O2 per NC at 2L daily. Today he has coarse lung sounds, congestion, and has required up to 5L per NC to keep SaO2 > 90%. He was suctioned per EMS. [facility] voiced concern to EMS that he received a fluid overload in the ED yesterday. He received 500 ml IV, yesterday. Patient poor historian, but denies choking or pain. No falls reported. 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 Called staff at [facility] and they report acute change in last hour. No known aspiration. Timing/Duration: this morning Prior Episodes/Possible Cause: occasional episodes Associated Symptoms: denies symptoms, cough, shortness of breath, other (Resp gurgling and rhonchi) Allergies and Home Medications Allergies Coded Allergies: amoxicillin (Verified Allergy, Severe, RASH, pt has received Ancef & Cefepime in the past, 05/25/19) clavulanic acid (Verified Allergy, Severe, RASH, 12/26/18) Iodinated Contrast Media (Verified Allergy, Unknown, 12/26/18) Home Medications Acetaminophen 500 Mg Tablet, 1,000 MG PO Q6H PRN for PAIN-MILD (1-4), (Reported) Allopurinol 100 Mg Tablet, 100 MG PO DAILY, (Reported) Amiodarone HCl 200 Mg Tablet, 200 MG PO DAILY Prescribed by: SOLO MENDENHALL on 10/01/19816 Aspirin 325 Mg Tablet.dr, 325 MG PO DAILY Prescribed by: SOLO MENDENHALL on 10/01/19816 Cetirizine HCl 10 Mg Tablet, 10 MG PO DAILY, (Reported) Cholecalciferol (Vitamin D3) 2,000 Unit Capsule, 2,000 UNIT PO DAILY, (Reported) Citalopram Hydrobromide 20 Mg Tablet, 20 MG PO DAILY Prescribed by: SOLO MENDENHALL on 10/01/19816 Doxycycline Hyclate 100 Mg Tablet, 100 MG PO BID Prescribed by: GEO QUINTERO on 03/02/202207 Finasteride 5 Mg Tablet, 5 MG PO DAILY, (Reported) Fluticasone Propionate 9.9 Ml Benedict.susp, 1 SPRAY NS HS PRN for ALLERGIES, (Reported) Furosemide 20 Mg Tablet, 10 MG PO DAILY Prescribed by: RYLAND MCKEON on 03/03/20 1454 Ipratropium/Albuterol Sulfate 3 Ml Ampul.neb, 3 ML IH Q4H PRN for SHORTNESS OF BREATH Prescribed by: RYLAND MCKEON on 03/03/20 1454 Multivit-Min/FA/Lycopene/Lut 1 Each Tablet, 0.5 TAB PO BID, (Reported) Pantoprazole Sodium 40 Mg Tablet.dr, 40 MG PO DAILY, (Reported) Ropinirole HCl 0.25 Mg Tablet, 0.25 MG PO 1600,2100, (Reported) Vitamin B Complex 1 Each Tablet, 1 TAB PO DAILY, (Reported) Patient Home Medication List Home Medication List Reviewed: Yes Review of Systems Review of Systems Constitutional: no symptoms reported Respiratory: see HPI, cough, short of breath, wheezing All Other Systems Reviewed Negative Unless Noted: Yes Past Byjjcvh-Axtyhc-Ckkgxh Hx Patient Social History Type Used: Cigarettes 2nd Hand Smoke Exposure: No Recent Hopitalizations: No (12/2018-DIVERTICULITIS/GI BLEED - 03/2019 NPH WITH DEPUTY SHERIFF CHIEF SHUNT) Immunizations Up To Date Tetanus Booster (TDap): Less than 5yrs PED Vaccines UTD: Yes Date of Pneumonia Vaccine: Jul 17, 2018 Date of Influenza Vaccine: Aug 17, 2019 Seasonal Allergies Seasonal Allergies: Yes Past Medical History Surgeries: Yes Angioplasty, Brain Shunt, Cardiac, Coronary Stent, Ear Surgery, Gallbladder, Neurological, Nose, Vascular Surgery Respiratory: Yes (USES CPAP) Sleep Apnea Currently Using CPAP: Yes Currently Using BIPAP: No Cardiac: Yes Aneurysm, Atrial Fibrillation, Cardiomyopathy, Chronic Edema/Swelling, Coronary Artery Disease, High Cholesterol, Hypertension, Peripheral Vascular Neurological: Yes (NPH, intracranial hemorrhage) Vertigo Reproductive Disorders: No Sexually Transmitted Disease: No HIV/AIDS: No Genitourinary: Yes (CHRONIC RENAL INSUFFICIENCY) Benign Prostatic Hyperpl, Kidney Stones, Renal Failure Gastrointestinal: Yes (DIVERTICULITIS WITH GI BLEEDING 12/2018) Abdominal Hernia, Gastrointestinal Bleed, Diverticulosis Musculoskeletal: Yes (RESTLESS LEG SYNDROME; GAIT DISTURBANCE; FALLS) Arthritis, Gout Endocrine: No HEENT: Yes Loss of Vision: Denies Hearing Impairment: Hard of Hearing, Hearing Aide Left Cancer: No Psychosocial: Yes Depression Integumentary: No Blood Disorders: No Adverse Reaction/Blood Tranf: No (N/A) Family Medical History Abdominal aortic aneurysm Arthritis 19 MOTHER Cardiovascular disease 19 FATHER 19 MOTHER G8 SISTER Deafness or hearing loss 19 FATHER 19 MOTHER Hypertension 19 FATHER Myocardial infarction 19 FATHER Osteoporosis 19 MOTHER Heart Disease, Hypertension Physical Exam Vital Signs - First Documented 03/03/20 13:13 Temp 36.8 Pulse 75 Resp 28 B/P (MAP) 167/89 (115) Pulse Ox 96 O2 Delivery Nasal Cannula O2 Flow Rate 4.00 Capillary Refill : Height: 6'0.00" Weight: 206lbs. 5.8oz. 93.689062is; 27.00 BMI Method:Stated General Appearance: WD/WN, mild distress (mild SOA) Eyes: Bilateral Eye Normal Inspection, Bilateral Eye PERRL, Bilateral Eye EOMI HEENT: PERRL/EOMI, normal ENT inspection, TMs normal, pharynx normal, other (oral mucosa pink and moist) Neck: non-tender, full range of motion, supple Respiratory: chest non-tender, decreased breath sounds, rhonchi, other (labored breathing) Cardiovascular: normal peripheral pulses, no edema, no murmur, irregularly irregular Gastrointestinal: normal bowel sounds, non tender, soft Extremities: normal range of motion, non-tender, normal inspection, no calf tenderness, normal capillary refill Neurologic/Psychiatric: no motor/sensory deficits, alert, normal mood/affect Skin: normal color, warm/dry Progress/Results/Core Measures Suspected Sepsis SIRS Temperature: Pulse: Respiratory Rate: Laboratory Tests 03/03/20 13:20: White Blood Count 11.1H Blood Pressure / Mean: Laboratory Tests 03/03/20 13:20: Creatinine 1.27, Platelet Count 270, Total Bilirubin 1.5H Results/Orders Lab Results Laboratory Tests Test 03/03/20 13:20 Range/Units White Blood Count 11.1 H 4.3-11.0 10^3/uL Red Blood Count 4.73 4.35-5.85 10^6/uL Hemoglobin 12.9 L 13.3-17.7 G/DL Hematocrit 39 L 40-54 % Mean Corpuscular Volume 83 80-99 FL Mean Corpuscular Hemoglobin 27 25-34 PG Mean Corpuscular Hemoglobin Concent 33 32-36 G/DL Red Cell Distribution Width 16.9 H 10.0-14.5 % Platelet Count 270 130-400 10^3/uL Mean Platelet Volume 9.6 7.4-10.4 FL Neutrophils (%) (Auto) 74 42-75 % Lymphocytes (%) (Auto) 17 12-44 % Monocytes (%) (Auto) 9 0-12 % Eosinophils (%) (Auto) 0 0-10 % Basophils (%) (Auto) 0 0-10 % Neutrophils # (Auto) 8.2 H 1.8-7.8 X 10^3 Lymphocytes # (Auto) 1.9 1.0-4.0 X 10^3 Monocytes # (Auto) 1.0 0.0-1.0 X 10^3 Eosinophils # (Auto) 0.0 0.0-0.3 10^3/uL Basophils # (Auto) 0.0 0.0-0.1 10^3/uL Sodium Level 137 135-145 MMOL/L Potassium Level 4.0 3.6-5.0 MMOL/L Chloride Level 104 98-107 MMOL/L Carbon Dioxide Level 22 21-32 MMOL/L Anion Gap 11 5-14 MMOL/L Blood Urea Nitrogen 13 7-18 MG/DL Creatinine 1.27 0.60-1.30 MG/DL Estimat Glomerular Filtration Rate 54 BUN/Creatinine Ratio 10 Glucose Level 91 70-105 MG/DL Calcium Level 8.9 8.5-10.1 MG/DL Corrected Calcium 9.3 8.5-10.1 MG/DL Magnesium Level 2.0 1.6-2.4 MG/DL Total Bilirubin 1.5 H 0.1-1.0 MG/DL Aspartate Amino Transf (AST/SGOT) 24 5-34 U/L Alanine Aminotransferase (ALT/SGPT) 18 0-55 U/L Alkaline Phosphatase 157 H 40-136 U/L C-Reactive Protein High Sensitivity 14.11 H 0.00-0.50 MG/DL B-Type Natriuretic Peptide 256.5 H <100.0 PG/ML Total Protein 7.2 6.4-8.2 GM/DL Albumin 3.5 3.2-4.5 GM/DL My Orders Orders - RYLAND MCKEON Cbc With Automated Diff (03/03/20 13:22) Comprehensive Metabolic Panel (03/03/20 13:22) BNP (03/03/20 13:22) Hs C Reactive Protein (03/03/20 13:22) Magnesium (03/03/20 13:22) Ekg Tracing (03/03/20 13:22) O2 (03/03/20 13:22) Ed Iv/Invasive Line Start (03/03/20 13:22) Monitor-Rhythm Ecg Trace Only (03/03/20 13:22) Chest 1 View, Ap/Pa Only (03/03/20 13:22) Dexamethasone Injection (Decadron Inject (03/03/20 13:30) Furosemide Injection (Lasix Injection) (03/03/20 13:30) Medications Given in ED Current Medications Medications Dose Ordered Sig/Jesse Route Start Time Stop Time Status Last Admin Dose Admin Dexamethasone Sodium Phosphate 10 mg ONCE ONCE IV 03/03/20 13:30 03/03/20 13:31 DC 03/03/20 13:36 10 MG Furosemide 20 mg ONCE ONCE IVP 03/03/20 13:30 03/03/20 13:31 DC 03/03/20 13:36 20 MG Vital Signs/I&O 03/03/20 03/03/20 13:13 13:13 Temp 36.8 Pulse 75 Resp 28 B/P (MAP) 167/89 (115) Pulse Ox 96 96 O2 Delivery Nasal Cannula Nasal Cannula O2 Flow Rate 4.00 4.00 Capillary Refill : Progress Note : Time: 13:15 Progress Note Patient seen and evaluated, maintaining SaO2 greater than 90% at 3-4 L per nasal cannula. RT here will do suctioning and reevaluate patient after labs and chest x-ray. Lasix 20 mg IV 1400 reviewed labs, patient having increased urinary frequency. SaO2 94% on 3L per NC. No resp distress, but continued upper resp gurgling. Despite suctioning. [address] Butcher, recommended discussion with family for comfort care at [facility] vs admission. 1440 Spoke to daughter, she is comfortable with him returning to [facility] for comfort care. 1450 Spoke to nurse at [facility], orders given. They will come to get him. 1515 Patient remains stable, no further resp distress. Improved lung sounds and less upper resp gurgling. SaO2 93% on O2 at 3L/NC. ECG Initial ECG Impression Date: March 03, 2020 Initial ECG Impression Time: 13:22 Initial ECG Rate: 77 Initial ECG Rhythm: Normal Sinus Initial ECG Intervals: Normal Initial ECG Intervals CO to 44, QRSD 120, QTC 414, QTc 469. Elmer P 19, QRS -23, T 165 Initial ECG Impression: Normal Initial ECG Comparisson: Unchanged Diagnostic Imaging Diagonstic Imaging: Xray Plain Films/CT/US/NM/MRI: chest Comments NAME: ANA WALKER [facility] REC#: [id number] PT STATUS: REG ER : 1935 PHYSICIAN: RYLAND MCKEON COOKING INSTRUCTOR ADMIT DATE: 03/03/20/ER Draft Date of Exam:03/03/20 CHEST 1 VIEW, AP/PA ONLY INDICATION: Shortness of breath and wheezing. TIME OF EXAM: 01:43 p.m. Correlation is made with prior chest from one day earlier. FINDINGS: Heart is enlarged but stable. A tubing overlies left hemithorax. Lungs appear to be clear. No infiltrate or failure is detected. There is no effusion or pneumothorax. IMPRESSION: Stable chest. No acute feature is detected. Dictated on workstation # [id number] Dict: 03/03/20 1351 Trans: 03/03/20 1358 [id number] Interpreted by: AVI CHOWDARY MD Electronically signed by: Departure Impression Primary Impression: Heart failure Qualified Codes: I50.9 - Heart failure, unspecified Additional Impression: Aspiration into airway Qualified Codes: T17.908A - Unspecified foreign body in respiratory tract, part unspecified causing other injury, initial encounter Disposition: HOME, SELF-CARE Condition: Stable Departure-Patient Inst. Decision time for Depature: 14:40 Referrals: DAPHNE BUTCHER MD (PCP/Family) Primary Care Physician Patient Instructions: Aspiration Pneumonia (DC), Heart Failure, Adult (DC) Add. Discharge Instructions: Oxygen 2-3 L per NC at all times, to maintain SaO2 90% or greater. Lasix 10 mg orally, once daily. Duoneb every 4 hours. Check CMP on 03/06/20 Aspiration Precautions, thickened liquids Consult Hospice for discussion with family to consider. Oral suction every 2 hours, as needed. All discharge instructions reviewed with patient and/or family. Voiced understanding. Scripts Ipratropium/Albuterol Sulfate (Iprat-Albut 0.5-3(2.5) mg/3 ml) 3 Ml Ampul.neb 3 ML IH Q4H PRN for SHORTNESS OF BREATH, #21 EACH 0 Refills Prov: RYLAND MCKEON 03/03/20 Furosemide (Lasix) 20 Mg Tablet 10 MG PO DAILY, #10 TAB 0 Refills Prov: RYLAND MCKEON 03/03/20 RYLAND MCKEON March 03, 2020 13:41
[2020-03-03 13:44] LABS: ALBUMIN 3.5 GM/DL (3.2-4.5)
[2020-03-03 13:46] LABS: CALCIUM 8.9 MG/DL (8.5-10.1)
[2020-03-03 13:47] LABS: TOTAL PROTEIN 7.2 GM/DL (6.4-8.2)
--- NOTE | 2020-03-03 13:47 | NUR ---
This RN contacted pt daughter, Dori, regarding pt update et status. Dori voice no further questions or concerns at this time.
[2020-03-03 13:49] LABS: BILIRUBIN,TOTAL 1.5 MG/DL (0.1-1.0)
[2020-03-03 13:50] LABS: CREATININE SERUM 1.27 MG/DL (0.60-1.30)
--- NOTE | 2020-03-03 13:58 | Diagnostic Imaging Report ---
INDICATION: Shortness of breath and wheezing. TIME OF EXAM: 01:43 p.m. Correlation is made with prior chest from one day earlier. FINDINGS: Heart is enlarged but stable. A tubing overlies left hemithorax. Lungs appear to be clear. No infiltrate or failure is detected. There is no effusion or pneumothorax. IMPRESSION: Stable chest. No acute feature is detected. Dictated by: Dictated on workstation # [id number]
[2020-03-03] MEDS ORDERED: FURO-125 PO (14:54)
[2020-03-03] MEDS ORDERED: IPRA3AMP31 IH (14:54)
--- NOTE | 2020-03-03 14:55 | NUR ---
Pt incontinent of bowel et bladder. This RN et PCCT rolled, cleaned, et changed pt. Pt alert et verbalizes no further c/o, questions, or needs. Will continue to monitor.
--- NOTE | 2020-03-03 15:00 | NUR ---
Provider contacted [facility] et gave pt report to nurseMayank. Provider requested pt transport back to facility.
--- OUTSIDE RECORDS SUMMARY | 2020-03-03 15:23 | XMS REPORT | Encounter Summary ---
Author Author [facility] Organization [facility] Address Unknown Phone Unavailable Care Team Providers Care Kettleman Name Role Phone Michael Velasquez MD Unavailable Lesley Butcher MD PCP Encounter Details Care Team Description Date Type Department Trina Madrigal RN 10/18/2019 Documentation [facility] [address] [address] Social History Date Tobacco Use Types Packs/Day Years Used Never Smoker Smokeless Tobacco: Never Used Drinks/Week oz/Week Comments Alcohol Use 1 Cans of beer 20.0 Yes Sex Assigned at Date Recorded Not on file Industry Job Start Date Occupation Not on file Not on file Not on file Travel End Travel History Travel Start No recent travel history available. documented as of this encounter Functional Status Date of Assessment Functional Status Response 09/14/2019 Does the patient have a hearing impairment: Yes documented as of this encounter Plan of Treatment Not on filedocumented as of this encounter Goals Goal Patient Associated Recent Progress Patient-Stat Aut hor Goal Type Problems ed? GOAL General Yes Robert Freeman, RN Note: To get better documented as of this encounter Visit Diagnoses Not on filedocumented in this encounter
--- OUTSIDE RECORDS SUMMARY | 2020-03-03 15:23 | XMS REPORT | Clinical Summary ---
Author Author [facility] Organization [facility] Address Unknown Phone Unavailable Care Team Providers Care Cop Breaker Name Role Phone Michael Velasquez MD Unavailable Lesley Butcher MD PCP Source Comments Some departments are not documenting in the electronic medical record. If you d o not see the information that you expected, contact Release of Information in [facility] Information Management department at [phone] for further assistan ce in locating additional records.[facility] Allergies Comments Active Allergy Reactions Severity Noted Date Iodinated Contrast Media ITCHING Low 03/26 Medications End Date Status Medication Sig Dispensed [...] mg 0 200 mg tablet by mouth twice daily. Take with food. Active pantoprazole DR Take 40 mg by 0 (PROTONIX) 40 mg tablet mouth daily. Active rOPINIRole (REQUIP) 0.25 Take 0.25 mg 0 mg tablet by mouth twice daily. Active cholecalciferol (VITAMIN Take 2,000 0 D-3) 2,000 unit tablet Units by mouth daily. Active fluticasone propionate Apply 1 spray 0 (FLONASE) 50 to each mcg/actuation nasal spray nostril as directed daily as needed. Shake bottle gently before using. Active spironolactone Take one 90 tablet 3 (ALDACTONE) 25 mg tablet tablet by 9 mouth daily. Take with food. Active vitamins, B complex tab Take 1 tablet 0 by mouth daily. Active acetaminophen (TYLENOL) Take 1,000 mg 0 500 mg tablet by mouth every 6 hours as needed for Pain. Max of 4,000 mg of acetaminophen in 24 hours. Active cetirizine (ZYRTEC) 10 mg Take 10 mg by 0 tablet mouth every morning. Active finasteride (PROSCAR) 5 Take 5 mg by 0 mg tablet mouth daily. Active atorvastatin (LIPITOR) 40 Take 40 mg by 0 mg tablet mouth daily. Active citalopram (CELEXA) 20 mg Take 20 mg by 0 tablet mouth daily. Active MV with Take 0.5 0 Law-Hsgupnjd-Yzbybu tablets by (CENTRUM SILVER) mouth twice 0.4-300-250 mg-mcg-mcg daily. tab Active HYDROcodone/acetaminophen Take one 0 12/0 (NORCO) 5/325 mg tablet tablet by 9 mouth every 4 hours as needed Active senna/docusate Take one 0 (SENOKOT-S) 8.6/50 mg tablet by 9 tablet mouth twice daily. Take while taking pain medication Active aspirin 325 mg tablet Take one 90 tablet 0 12/0 201 tablet by 9 mouth daily. Take with food. 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 TEACHER Blood Pressure 60 09/18/2019 8:25 AM CONSTRUCTION SKILLS TEACHER Pulse 36.3 C (97.3 F) 09/18/2019 8:25 AM CONSTRUCTION SKILLS TEACHER Temperature - - Respiratory Rate 97% 09/18/2019 8:25 AM CONSTRUCTION SKILLS TEACHER Oxygen Saturation - - Inhaled Oxygen Concentration 96.1 kg (211 lb 13.8 oz) 09/12/2019 11:10 PM CONSTRUCTION SKILLS TEACHER Weight 182.9 cm (6') 09/12/2019 11:10 PM CONSTRUCTION SKILLS TEACHER Height 28.73 09/12/2019 11:10 PM CONSTRUCTION SKILLS TEACHER Body Mass Index Plan of Treatment Health Maintenance Due Date Last Done Comments MEDICARE ANNUAL WELLNESS 1935 VISIT DTAP/TDAP VACCINES (1 - 1955 Tdap) PHYSICAL (COMPREHENSIVE) 1955 EXAM SHINGLES RECOMBINANT 1987 VACCINE (1 of 2) PNEUMONIA (PPSV23) 2002 VACCINE (1 of 1 - PPSV23) INFLUENZA VACCINE 07/17/2020 08/14/2010, 09/23/2006, 09/19/2003, Additional history exists Goals Goal Patient Associated Recent Progress Patient-Stat Aut hor Goal Type Problems ed? GOAL General Yes Robert Freeman, RN Note: To get better Implants Device Identifier Shelf Expiration Date Model / Serial / L ot Implanted Type Area Manufactur er 11/16/2020 CI-1600-04 / [id number] / [id number] Implant Cochlear Hires Ultra Right: Ear UNIDENTI FI Hifocus Mid Antonia Electrode Sterile ED MFG - [id number] Implanted: Qty: 1 on 02/24/2018 by Yung Moreno MD at [facility] Description: [facility] for 1.5T with the magnet in place - an MRI Antenna Coil Cover and a simple head-bandage procedure is all that is required, no surgical procedure is necessary [facility] approved for 3T MRI with the magnet removed - the magnet can be taken out easily and replaced through a small incision, without the inconvenience of removing the implant 2020 [id number] / [id number] / [id number] Valve Shunt Certas Plus Siphonguard Right: Brain U NIDENTIFI Inline Catheter - [id number] ED MFG Implanted: Qty: 1 on 03/29/2019 by Mario Pereyra MD at [facility] [id number] 11/16/2019 [id number] / [id number] / [id number] Device Closure 70cm 6fr Angio-Seal Right: Femoral TE RUMO Vip .035in Vascular - Sna Artery INTERVENTI Implanted: Qty: 1 on 03/30/2019 by Ton Blank MD at [facility] Results Not on filefrom Last 3 Months Insurance Type Payer Benefit Subscriber ID Effective Phone Address Plan / Dates Group Medicare MEDICARE MEDICARE xxxxxxxxxxx 2001-P PART A AND resent B Medicare BCBS VIVEK BCBS xxxxxxxxxxxx 2017-P SUPPLEMENT resent [id number] Advance Directives Patient Word Processing Operator Explanation Type Date Recorded Advance 02/03/2007 12:00 AM Directive/DPOA Date Inactivated Comments Code Status Date Activated 09/18/2019 1:06 PM Full Code 09/12/2019 11:03 PM Provider has discussed Code Status No, more discussi on w/Patient or Family? needed 04/04/2019 12:11 PM Full Code 03/26/2019 12:05 PM Provider has discussed Code Status No, more discussi on w/Patient or Family? needed
--- OUTSIDE RECORDS SUMMARY | 2020-03-03 15:23 | XMS REPORT | Encounter Summary ---
Author Author [facility] Organization [facility] Address Unknown Phone Unavailable Care Team Providers Care Pmo Analyst Name Role Phone Michael Velasquez MD Unavailable Lesley Butcher MD PCP Reason for Referral * Radiology Services (Routine) Referred By Contact Referred To Contact Status Reason Specialty Diagnoses / Procedures Ton Weber MD [address] [facility] [address] [place] [address] New Request Radiology Diagnoses Intraparenchymal hematoma of brain, left, without loss of consciousness, subsequent encounter P rocedures CT HEAD WO CONTRAST Encounter Details Care Team Description Date Type Department Ton Weber MD [address] [facility] [address] [place], [place] [id number] Intraparenchymal hematoma of brain, left , without loss of consciousness, subsequent encounter (Primary Dx) 09/18/2019 Orders Only [facility] [address] [place] [id number] Social History Date Tobacco Use Types Packs/Day [...] Treatment Order Schedule Name Type Priority Associated Diag noses Expected: 09/18/2019 (Approximate), Expi res: 09/18/2020 CT HEAD WO CONTRAST Imaging Routine Intraparen chymal hematoma of brain, left, without loss of consciousness, subsequent encounter documented as of this encounter Goals Goal Patient Associated Recent Progress Patient-Stat Aut hor Goal Type Problems ed? GOAL General Yes Robert Freeman, RN Note: To get better documented as of this encounter Visit Diagnoses Diagnosis Intraparenchymal hematoma of brain, lef t, without loss of consciousness, subsequent encounter documented in this encounter
--- OUTSIDE RECORDS SUMMARY | 2020-03-03 15:23 | XMS REPORT | Encounter Summary ---
Author Author [facility] Organization [facility] Address Unknown Phone Unavailable Care Team Providers Care Chronometer Assembler Name Role Phone Michael Velasquez MD Unavailable Lesley Butcher MD PCP Encounter Details Care Team Description Date Type Department Ton Weber MD [address] [facility] [address] [place] [address] 09/18/2019 Orders Only [facility] [address] [place] [address] Social History Date Tobacco Use [...]
--- OUTSIDE RECORDS SUMMARY | 2020-03-03 15:23 | XMS REPORT | Encounter Summary ---
Author Author [facility] Organization [facility] Address Unknown Phone Unavailable Care Team Providers Care Chemical Radiation Technician Name Role Phone Michael Velasquez MD Unavailable Lesley Butcher MD PCP Encounter Details Care Team Description Date Type Department 11/03/2019 [facility] [address] [address] Social History Date Tobacco Use Types Packs/Day [...] Date End Date Medication Sig Dispensed Refills acetaminophen (TYLENOL) Take 1,000 mg 0 500 mg tablet by mouth every 6 hours as needed for Pain. Max of 4,000 mg of acetaminophen in 24 hours. allopurinol (ZYLOPRIM) Take 100 mg 0 100 mg tablet by mouth daily. Take with food. amiodarone (CORDARONE) Take 200 mg 0 200 mg tablet by mouth twice daily. Take with food. 09/19/2019 aspirin 325 mg tablet Take one 90 tablet 0 tablet by mouth daily. Take with food. atorvastatin (LIPITOR) 40 Take 40 mg by 0 mg tablet mouth daily. cetirizine (ZYRTEC) 10 mg Take 10 mg by 0 tablet mouth every morning. cholecalciferol (VITAMIN Take 2,000 0 D-3) 2,000 unit tablet Units by mouth daily. citalopram (CELEXA) 20 mg Take 20 mg by 0 tablet mouth daily. finasteride (PROSCAR) 5 Take 5 mg by 0 mg tablet mouth daily. fluticasone propionate Apply 1 spray 0 (FLONASE) 50 to each mcg/actuation nasal spray nostril as directed daily as needed. Shake bottle gently before using. 09/18/2019 HYDROcodone/acetaminophen Take one 0 (NORCO) 5/325 mg tablet tablet by mouth every 4 hours as needed losartan (COZAAR) 50 mg Take 50 mg by 0 tablet mouth daily. MV with Take 0.5 0 Vij-Qkuwibfu-Qcanxz tablets by (CENTRUM SILVER) mouth twice 0.4-300-250 mg-mcg-mcg daily. tab pantoprazole DR Take 40 mg by 0 (PROTONIX) 40 mg tablet mouth daily. rOPINIRole (REQUIP) 0.25 Take 0.25 mg 0 mg tablet by mouth twice daily. 09/18/2019 senna/docusate Take one 0 (SENOKOT-S) 8.6/50 mg tablet by tablet mouth twice daily. Take while taking pain medication 04/04/2019 spironolactone Take one 90 tablet 3 (ALDACTONE) 25 mg tablet tablet by mouth daily. Take with food. tamsulosin (FLOMAX) 0.4 Take 0.4 mg 0 mg capsule by mouth daily. Do not crush, chew or open capsules. Take 30 minutes following the same meal each day. vitamins, B complex tab Take 1 tablet 0 by mouth daily. documented as of this encounter Plan of Treatment Not on filedocumented as of this encounter Goals Goal Patient Associated Recent Progress Patient-Stat Aut hor Goal Type Problems ed? GOAL General Yes Robert Freeman, RN Note: To get better documented as of this encounter Procedures Comments Procedure Name Priority Date/Time Associated Diag nosis CT HEAD EXTERNAL IMAGING Routine 11/03/2019 12:00 AM METALLURGICAL ENGINEERING TEACHER documented in this encounter Results * CT HEAD EXTERNAL IMAGING (11/03/2019 12:00 AM METALLURGICAL ENGINEERING TEACHER) Specimen Narrative Performed At This order has been auto finalized and does not contain a result. documented in this encounter Visit Diagnoses Not on filedocumented in this encounter
--- OUTSIDE RECORDS SUMMARY | 2020-03-03 15:23 | XMS REPORT | Encounter Summary ---
Author Author [facility] Organization [facility] Address Unknown Phone Unavailable Care Team Providers Care Digital Strategist Name Role Phone Michael Velasquez MD Unavailable Lesley Butcher MD PCP Reason for Visit * Reason Comments Follow-up Phone Call Encounter Details Care Team Description Date Type Department Ton Weber MD [address] Ortho/Med Pavilion [address] [place] [address] Follow-up Phone Call 09/19/2019 Telephone [facility] [address] [place] [address] Social History Date Tobacco Use [...] encounter Miscellaneous Notes * Telephone Encounter - Allison Stockton RN - 09/19/2019 2:37 PM INDUSTRIAL ENGINEERING INTERN Spoke with Daughter Dori today regarding Estrada's transfer to [facility]. She states Estrada is having a rough day with low BP's with activity, at one po int he dropped SBP to 70's and they had to stop. They gave patient a bolus last evening but again today he is in low 80's range so they are doing bed level the rapy. She is asking about resuming Warfarin which was directed to restart in tw o weeks on AVS. She is also asking about LYRIC outpatient procedure which shows i n chart is scheduled for October 05 here at . She has no further questions at this time. They have multiple contact numbers for future needs. Allison Stockton, IKE Clinical Nurse Coordinator Neurosurgery Office: [phone] STRIAL ENGINEERING INTERN documented in this encounter Plan of Treatment Not on filedocumented as of this encounter Goals Goal Patient Associated Recent Progress Patient-Stat Aut hor Goal Type Problems ed? GOAL General Yes Robert Freeman, RN Note: To get better documented as of this encounter Visit Diagnoses Not on filedocumented in this encounter
--- OUTSIDE RECORDS SUMMARY | 2020-03-03 15:23 | XMS REPORT | Encounter Summary ---
Author Author [facility] Organization [facility] Address Unknown Phone Unavailable Care Team Providers Care Washer Cutter Name Role Phone Michael Velasquez MD Unavailable Lesley Butcher MD PCP Encounter Details Care Team Description Date Type Department Ton Weber MD [address] [facility] Ortho/Med Pavilion [address]vl [address] [place] [address] 10/01/2019 Documentation [facility] [address] [place] [address] Social History Date Tobacco Use [...] as of this encounter Progress Notes * Rodney Hernandez RN - 10/01/2019 9:59 AM DOUGHNUT MACHINE OPERATOR Received call from patient of Cardiology that patient had canceled ECHO d/t hosp italization at outside facility. HNUT MACHINE OPERATOR documented in this encounter Plan of Treatment Not on filedocumented as of this encounter Goals Goal Patient Associated Recent Progress Patient-Stat Aut hor Goal Type Problems ed? GOAL General Yes Robert Freeman, RN Note: To get better documented as of this encounter Visit Diagnoses Not on filedocumented in this encounter
--- OUTSIDE RECORDS SUMMARY | 2020-03-03 15:23 | XMS REPORT | Encounter Summary ---
Author Author [facility] Organization [facility] Address Unknown Phone Unavailable Care Team Providers Care Obstetrics Scrub Nurse Name Role Phone Michael Velasquez MD Unavailable Lesley Butcher MD PCP Reason for Visit * Reason Comments Appointment cancellation Encounter Details Care Team Description Date Type Department Trina Madrigal RN Appointment (cancellation) 10/01/2019 Telephone [facility] [address] [address] Social History Date Tobacco Use Types Packs/Day [...] encounter Miscellaneous Notes * Telephone Encounter - Trina Madrigal RN - 10/01/2019 9:16 AM HARDBOARD COATING MACHINE OPERATOR Pt's daughter called to cancel pt's upcoming 10/05/2019 [facility] due to pt currently hospitalized in their home town. BOARD COATING MACHINE OPERATOR documented in this encounter Plan of Treatment Not on filedocumented as of this encounter Goals Goal Patient Associated Recent Progress Patient-Stat Aut hor Goal Type Problems ed? GOAL General Yes Robert Freeman RN Note: To get better documented as of this encounter Visit Diagnoses Not on filedocumented in this encounter
--- OUTSIDE RECORDS SUMMARY | 2020-03-03 15:23 | XMS REPORT | Encounter Summary ---
Author Author [facility] Organization [facility] Address Unknown Phone Unavailable Care Team Providers Care Infantry Operations Specialist Name Role Phone Michael Velasquez MD Unavailable Lesley Butcher MD PCP Reason for Visit * Reason Comments Cochlear Implant Encounter Details Care Team Description Date Type Department Monalisa Leon AUD Cochlear Implant 09/27/2019 Telephone [facility] [address] [place] [address] Social History Date Tobacco Use [...] encounter Miscellaneous Notes * Telephone Encounter - Monalisa Leon AUD - 09/27/2019 9:57 AM MORTGAGE BRANCH MANAGER Daughter called stating Mr. Godoy has had a stroke since I last saw him. Al so, his cable has broke. She was provided with 's customer support informatio n and encouraged to contact them to have any broken parts replaced. GAGE BRANCH MANAGER documented in this encounter Plan of Treatment Not on filedocumented as of this encounter Goals Goal Patient Associated Recent Progress Patient-Stat Aut hor Goal Type Problems ed? GOAL General Yes Freeman, Lurena, RN Note: To get better documented as of this encounter Visit Diagnoses Not on filedocumented in this encounter
--- OUTSIDE RECORDS SUMMARY | 2020-03-03 15:24 | XMS REPORT | Encounter Summary ---
Author Author [facility] Organization [facility] Address Unknown Phone Unavailable Care Team Providers Care Marine Equipment Design Engineer Name Role Phone Michael Velasquez MD Unavailable Lesley Butcher MD PCP Reason for Referral * Test (Routine) Referred By Contact Referred To Contact Status Reason Specialty Diagnoses / Procedures Valery Mccall APRN [address] Ortho/Med Pav[place] [address]vl [address] [place] [address] [facility] [address] [facility] [id number] [place] [address] Closed Cardiology Diagnoses NPH (normal pressure hydrocephalus) (HCC) Giant intracranial aneurysm Intraparenchymal hematoma of brain, left, without loss of consciousness, subsequent encounter Sensorineural hearing loss (SNHL) of both ears P rocedures TRANSESOPHAGEAL ECHOCARDIOGRAM LA ECHO TRANSESOPHAG R-T 2D W/PRB IMG ACQUISJ I&R Reason for Visit * Auth/Cert Referred By Contact Referred To Contact Status Reason Specialty Diagnoses / Procedures Diagnoses Giant intracranial aneurysm Ruptured cerebral aneurysm (HCC) [facility] Encounter Details Care Team Description Date Type Department Ton Weber MD [address] Ortho[facility]Med [facility] [address] [place] [address] [phone] Giant intracranial aneurysm 09/12/2019 [facility] [address] 09/18/2019 [address] [place] [address] Social History Date Tobacco Use Types Packs/Day [...] Comments Vital Sign 112/79 09/18/2019 8:25 AM PUMP ASSEMBLER Blood Pressure 60 09/18/2019 8:25 AM PUMP ASSEMBLER Pulse 36.3 C (97.3 F) 09/18/2019 8:25 AM PUMP ASSEMBLER Temperature - - Respiratory Rate 97% 09/18/2019 8:25 AM PUMP ASSEMBLER Oxygen Saturation - - Inhaled Oxygen Concentration 96.1 kg (211 lb 13.8 oz) 09/12/2019 11:10 PM PUMP ASSEMBLER Weight 182.9 cm (6') 09/12/2019 11:10 PM PUMP ASSEMBLER Height 28.73 09/12/2019 11:10 PM PUMP ASSEMBLER Body Mass Index documented in this encounter Functional Status Date of Assessment Functional Status Response 09/14/2019 Does the patient have a hearing impairment: Yes documented as of this encounter Discharge Summaries * Valery Mccall APRN - 09/18/2019 11:00 AM PUMP ASSEMBLER Physician Discharge Summary Name: Estrada Godoy Date Of : 1935 Age: 84 years Admit date: 09/12/2019 Discharge date: 09/18/2019 Attending Physician: Dr. Ton Weber Service: Surgery-Neuro Physician Summary completed by: Valery Mccall APRN Reason for hospitalization: new left occipital intraparenchymal hematoma and le ft posterior falx subdural hematoma Significant PMH: Medical History: Diagnosis Date Coronary artery disease Hearing loss SYL on CPAP Allergies: Contrast dye iv, iodine containing [iodinated contrast media] Admission Physical Exam notable for: 84 y.o. 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 Family also reports a fever up to 102.5 today. The patient himself states that he is tired and points to his left temporal region pain. Head CT was done at the outside hospital which revea led a left occipital IPH. Patient takes warfarin for atrial fibrillation and ferraro d a INR of 2.7 at the outside hospital. This was reversed with Kcentra. The pa aleksandr is followed with Dr. Weber for his dolichoectatic basilar aneurysm ther efore was transferred here for further work-up and care. Admission Lab/Radiology studies notable for: See above Brief Hospital Course: The patient was admitted and the following issues were a ddressed during this hospitalization: (with pertinent details). 09/12: Admitted to NEICU. 09/14: CT head stable. Progress to tele status. Cardiology consulted for possibl e watchman procedure. 09/17: Medically stable for discharge. CM/SW involved. 09/18: Discharged to [facility] with follow up care arranged with neurosurgery and car diology. Condition at Discharge: Stable Discharge Diagnoses: Hospital Problems Active Problems NPH (normal pressure hydrocephalus) (HCC) Giant intracranial aneurysm Intraparenchymal hematoma of brain (HCC) Surgical Procedures: None Significant Diagnostic Studies and Procedures: radiology: CT scan: head and CTA head Consults: Cardiology, Rehabilitative Medicine and Neurology Critical Care Patient Disposition: Outside Rehabilitation Facility Patient instructions/medications: Other Activity Restrictions Activity as tolerated; No driving until cleared by your surgeon at follow up ap pointment. Avoid pulling, pushing or lifting greater than 10 pounds. May shower. OT EVAL & TREAT PT EVAL & TREAT SWITCHBOARD INSPECTOR CONSULT SPEECH-LANGUAGE EVAL & TX TRANSESOPHAGEAL ECHOCARDIOGRAM Standing Status: Future Standing Exp. Date: 09/14/20 Indication for Procedure? OTHER (SPECIFY): Watchman workup. Eval L atrial append age. Implement Cardiovascular Ultrasound Saline Bubble Study and Ultrasound Contrast Agents (UCA) protocol? Yes Implement Amyl Nitrate protocol? Yes Agitated saline injection for detection of intracardiac shunt No Scheduling Priority: Routine Report These Signs and Symptoms Call if temperature greater than 101, pain that is uncontrolled with pain medic ation, numbness or weakness, vision changes, trouble with speech or slurring of speech, or any questions/concerns. Questions About Your Stay For questions or concerns regarding your hospital stay, call [phone] Discharging attending physician: TON WEBER [[id number]] Regular Diet You have no dietary restriction. Please continue with a healthy balanced diet. Current Discharge Medication List START taking these medications Details aspirin 325 mg tablet Take one tablet by mouth daily. Take with food. Qty: 90 tablet PRESCRIPTION TYPE: No Print HYDROcodone/acetaminophen (NORCO) 5/325 mg tablet Take one tablet by mouth every 4 hours as needed Refills: 0 PRESCRIPTION TYPE: No Print levETIRAcetam (KEPPRA) 500 mg tablet Take one tablet by mouth twice daily for 8 days. PRESCRIPTION TYPE: No Print senna/docusate (SENOKOT-S) 8.6/50 mg tablet Take one tablet by mouth twice daily . Take while taking pain medication PRESCRIPTION TYPE: No Print CONTINUE these medications which have NOT CHANGED Details acetaminophen (TYLENOL) 500 mg tablet Take 1,000 mg by mouth every 6 hours as ne eded for Pain. Max of 4,000 mg of acetaminophen in 24 hours. PRESCRIPTION TYPE: Historical Med allopurinol (ZYLOPRIM) 100 mg tablet Take 100 mg by mouth daily. Take with food. PRESCRIPTION TYPE: Historical Med amiodarone (CORDARONE) 200 mg tablet Take 200 mg by mouth twice daily. Take with food. PRESCRIPTION TYPE: Historical Med atorvastatin (LIPITOR) 40 mg tablet Take 40 mg by mouth daily. PRESCRIPTION TYPE: Historical Med cetirizine (ZYRTEC) 10 mg tablet Take 10 mg by mouth every morning. PRESCRIPTION TYPE: Historical Med cholecalciferol (VITAMIN D-3) 2,000 unit tablet Take 2,000 Units by mouth daily. PRESCRIPTION TYPE: Historical Med citalopram (CELEXA) 20 mg tablet Take 20 mg by mouth daily. PRESCRIPTION TYPE: Historical Med finasteride (PROSCAR) 5 mg tablet Take 5 mg by mouth daily. PRESCRIPTION TYPE: Historical Med fluticasone propionate (FLONASE) 50 mcg/actuation nasal spray Apply 1 spray to e ach nostril as directed daily as needed. Shake bottle gently before using. PRESCRIPTION TYPE: Historical Med losartan (COZAAR) 50 mg tablet Take 50 mg by mouth daily. PRESCRIPTION TYPE: Historical Med MV with Dce-Ppfyilmv-Bpcxka (CENTRUM SILVER) 0.4-300-250 mg-mcg-mcg tab Take 0.5 tablets by mouth twice daily. PRESCRIPTION TYPE: Historical Med pantoprazole DR (PROTONIX) 40 mg tablet Take 40 mg by mouth daily. PRESCRIPTION TYPE: Historical Med rOPINIRole (REQUIP) 0.25 mg tablet Take 0.25 mg by mouth twice daily. PRESCRIPTION TYPE: Historical Med spironolactone (ALDACTONE) 25 mg tablet Take one tablet by mouth daily. Take wit h food. Qty: 90 tablet, Refills: 3 PRESCRIPTION TYPE: Normal tamsulosin (FLOMAX) 0.4 mg capsule Take 0.4 mg by mouth daily. Do not crush, elke w or open capsules. Take 30 minutes following the same meal each day. PRESCRIPTION TYPE: Historical Med vitamins, B complex tab Take 1 tablet by mouth daily. PRESCRIPTION TYPE: Historical Med The following medications were removed from your list. This list includes medic ations discontinued this stay and those removed from your prior med list in our system warfarin (COUMADIN) 3 mg tablet Scheduled appointments: Oct 05, 2019 8:00 AM PUMP ASSEMBLER Transesophageal Echo (LYRIC) w Sedation with [facility] LYRIC/CARDIOVERSION [facility] ([facility]) [address] [facility] [address] Oct 24, 2019 10:30 AM PUMP ASSEMBLER Return Patient with Ton Weber MD [facility] (NeuroSurgery) [address] [facility] [address] [facility] [address] Pending items needing follow up: None Signed: Valery Mccall APRN 09/18/2019 cc: Primary Care Physician: Lesley Butcher Verified Referring physicians: Chase Nickerson, KARI Additional provider(s): ASSEMBLER documented in this encounter Medications at Time [...] mouth daily. MV with Take 0.5 0 Vfo-Lxhyibmp-Sgqalo tablets by (CENTRUM SILVER) mouth twice 0.4-300-250 [...] Take 1 tablet 0 by mouth daily. 09/18/2019 09/26/2019 levETIRAcetam (KEPPRA) Take one 0 500 mg tablet tablet by mouth twice daily for 8 days. documented as of this encounter Progress Notes * Linnette Alan RN - 09/18/2019 10:57 AM PUMP ASSEMBLER Discharge instructions given to patient's and patient's daughter at bedside . Pt's and daughter verbalized understanding of D/C instructions. Periphera l IV removed, [facility], patient's daughter will be driving patient to facility. Patient is being assisted to [facility] via wheelchair. ASSEMBLER * cOtavio Nicholson - 09/18/2019 10:08 AM PUMP ASSEMBLER PHYSICAL THERAPY MOBILITY NOTE Name: Estrada Godoy : 1935 Age: 84 y.o. Admission Date: 09/12/2019 LOS: 6 days Patient was mobilized today with the assistance of the P.T. mobility aide as par t of the ongoing physical therapy plan of care. Mobility Progressive Mobility Level: (P) Walk in hallway Distance Walked (feet): (P) 225 ft Level of Assistance: (P) Assist X1 Assistive Device: (P) Walker Time Tolerated: (P) 0-10 minutes Activity Limited By: (P) Fatigue;Lethargy Aircraft Part Assembler: Octavio Sandy Date: 09/18/2019 ASSEMBLER * Valery Mccall APRN - 09/18/2019 9:52 AM PUMP ASSEMBLER Neurosurgery Progress Note Admission Date: 09/12/2019 LOS: 6 days S: No acute events noted. Patient is extremely hard of hearing, difficult to com municate, able to ask simple questions. O: Vital Signs: 24 Hour Range BP: (101-131)/(64-79) Temp: [36.3 C (97.3 F)-37.1 C (98.7 F)] Pulse: [56-78] Respirations: [16 PER MINUTE] SpO2: [93 %-99 %] Physical Exam: Alert Oriented to self, family Follows commands, with some cueing for task A/P: 84 y.o. male Active Problems: NPH (normal pressure hydrocephalus) (HCC) Giant intracranial aneurysm Intraparenchymal hematoma of brain (HCC) Continue current care Continue Keppra 500 mg BID seizure ppx Will need outpatient cardiac follow up and LYRIC Anticipate resumption of coumadin for a-fib in 2 weeks. Discharge planning -- CM/SW involved Prophylaxis: A) GI: PPI B) Lines: No C) Urinary Catheter: No D) Antibiotic Usage: No E) VTE: Pharmacological prophylaxis; SQ Heparin and Mechanical prophylaxis; Seq uential compression device F) Restraints: Patient assessed for need for restraints. Please call [phone] with any questions. Valery Mccall APRN Pager [phone] or Voalte ASSEMBLER * Karla Greenberg, OT - 09/17/2019 3:40 PM PUMP ASSEMBLER OCCUPATIONAL THERAPY NO TREATMENT NOTE Name: Estrada Godoy : 1935 Age: 84 y.o. Admission Date: 09/12/2019 LOS: 5 days The patient was not seen due to: Patient not available Therapist: Karla Greenberg, SHAHBAZ Date: 09/17/2019 ASSEMBLER * Alvaro Gregory, PT - 09/17/2019 2:46 PM PUMP ASSEMBLER PHYSICAL THERAPY PROGRESS NOTE Name: Estrada Godoy : 1935 A ge: 84 y.o. Admission Date: 09/12/2019 LOS: 5 days Mobility Patient Turned: Self Progressive Mobility Level: Walk in hallway Distance Walked (feet): 300 ft Level of Assistance: Assist X1 Assistive Device: Walker Time Tolerated: 11-30 minutes Activity Limited By: Fatigue;Shortness of air Subjective Significant hospital events: 84 y.o. male with 2 day history of confusion, trans ferred from OSH and found to have Left Occipital IPH and left posterior falx sub dural hematoma Mental / Cognitive Status: Alert;Oriented;Cooperative;Follows Commands(hard of h earing) Persons Present: Daughter;Spouse Pain: Patient has no complaint of pain Comments: PMH: NPH - SWEATBAND MAKER shunt, atrial fibrillation on coumadin, CAD s/p CABG and a known basilar artery aneurysm ; cochlear impants, menienrs disease Ambulation Assist: Independent Mobility at Household Level with Device Patient Owned Equipment: Single Point Cane;Roller Walker(handicap height toliet and shower chair) Home Situation: Lives with Family Type of Home: House Entry Stairs: 1-2 Stairs In-Home Stairs: 1-2 Stairs Comments: new O2 requirement of 3L at rest Bed Mobility/Transfer Bed Mobility: Supine to Sit: Standby Assist;Head of Bed Elevated;Requires Extra Time Transfer Type: Sit to/from Stand Transfer: Assistance Level: From;Bed;To;Bed Side Chair;Moderate Assist Transfer: Assistive Device: Roller Walker Transfers: Type Of Assistance: Verbal Cues;For Balance;For Safety Considerations ;Requires Extra Time End Of Activity Status: Up in Chair;Nursing Notified;Instructed Patient to Reque st Assist with Mobility;Instructed Patient to Use Call Light Balance Sitting Balance: Static Sitting Balance;Dynamic Sitting Balance;No UE Support;St andby Assist Standing Balance: Static Standing Balance;Dynamic Standing Balance;2 UE support; Minimal Assist Gait Gait Distance: 300 feet Gait: Assistance Level: Minimal Assist;Safety Considerations;Management of Lines Gait: Assistive Device: Roller Walker Gait: Descriptors: Forward trunk flexion;Variable step length;Decreased foot jenna arance RLE;Decreased foot clearance LLE;Step-To Gait Comments: shuffling throughout. Able to correct shuffling with cues, but unable to maintain Activity Limited By: Complaint of Fatigue;Weakness Education Persons Educated: Patient/Family Patient Barriers To Learning: Decreased Hearing Interventions: Repetition of Instructions;Family Education Teaching Methods: Verbal Instruction Patient Response: More Instruction Required Topics: Plan/Goals of PT Interventions;Mobility Progression;Safety Awareness;Up with Assist Only;Importance of Increasing Activity;Recommend Continued Therapy Assessment/Progress Impaired Mobility Due To: Decreased Strength;Impaired Balance;Safety Concerns;De creased Activity Tolerance Assessment/Progress: Should Improve w/ Continued PT AM-PAC 6 Clicks Basic Mobility Inpatient Turning from your back to your side while in a flat bed without using bed rails: None Moving from lying on your back to sitting on the side of a flatbed without using bedrails : None Moving to and from a bed to a chair (including a wheelchair): A Little Standing up from a chair using your arms (e.g. wheelchair, or bedside chair): A Little To walk in hospital room: A Little Climbing 3-5 steps with a railing: A Lot Raw Score: 19 Standardized (T-scale) Score: 42.48 Basic Mobility CMS 0-100%: 36.99 CMS G Code Modifier for Basic Mobility: CJ Goals Goal Formulation: With Patient Time For Goal Achievement: 7 days Patient Will Transfer Sit to Stand: w/ Stand By Assist Patient Will Ambulate: Greater than 200 Feet, w/ No Device, w/ Stand By Assist Patient Will Go Up / Down Stairs: 3-5 Stairs, w/ Stand By Assist Other Goal: Will score low fall risk on balance testing Plan Treatment Interventions: Mobility Training;Strengthening;Balance Activities Plan Frequency: 5 Days per Week PT Plan for Next Visit: increase ambulation distance and endurance, standing bal ance activities PT Discharge Recommendations Recommendation: Inpatient setting;Recommend rehab medicine consult Patient Currently Requires Physical Assist With: Ambulation;Stairs;Transfers Therapist: Alvaro Gregory, PT, DPT Date: 09/17/2019 ASSEMBLER * Linnette Alan RN - 09/17/2019 2:43 PM PUMP ASSEMBLER Pt's Spo2 = 88 on RA with vital signs and was placed on 3 L NC. Pt SPo2= 93% on 3 L NC at 1358. TRIAL EXAMINER Lora updated on current patient status. TRIAL EXAMINER ordered to vasquez aleman to monitor and encourage use of IS. Will continue to monitor. ASSEMBLER * Lora Castro APRN - 09/17/2019 9:53 AM PUMP ASSEMBLER Neurosurgery Progress Note Admission Date: 09/12/2019 LOS: 5 days S: No acute events noted, family at bedside, discussed need for rehab, all in ag reement, hopeful for rehab closer to home. Patient is extremely hard of hearing, difficult to communicate, able to ask simple questions. O: Vital Signs: 24 Hour Range BP: (109-147)/(64-80) Temp: [36.3 C (97.3 F)-36.7 C (98 F)] Pulse: [57-69] Respirations: [16 PER MINUTE-18 PER MINUTE] SpO2: [92 %-98 %] Physical Exam: Alert, oriented to self, family Follows commands, with some cueing for task Full strength A/P: 84 y.o. male Active Problems: NPH (normal pressure hydrocephalus) (HCC) Giant intracranial aneurysm Intraparenchymal hematoma of brain (HCC) Stable imaging of Left IPH, no further imaging needed follow clinical exam Medically reading for rehab Continue Keppra 500 mg BID seizure ppx Will need outpatient cardiac follow up and LYRIC Anticipate resumption of coumadin for a-fib in 2 weeks. Na 134 stable Prophylaxis: A) GI: PPI B) Lines: No C) Urinary Catheter: No D) Antibiotic Usage: No E) VTE: Pharmacological prophylaxis; SQ Heparin and Mechanical prophylaxis; Seq uential compression device F) Restraints: Patient assessed for need for restraints. Please call [phone] with any questions. Lora Castro APRN Pager [phone] or Voalte ASSEMBLER * Ada Valladares, PT - 09/16/2019 3:23 PM PUMP ASSEMBLER PHYSICAL THERAPY PROGRESS NOTE Name: Estrada Godoy : 1935 Age: 84 y.o. Admission Date: 09/12/2019 LOS: 4 days Mobility Patient Turned: Weight Shifted (Chair/Spinal Precaution) Progressive Mobility Level: Walk in hallway Distance Walked (feet): 450 ft Level of Assistance: Assist X1 Assistive Device: Walker Time Tolerated: 11-30 minutes Activity Limited By: Fatigue;Weakness Subjective Significant hospital events: 84 y.o. male with 2 day history of confusion, trans ferred from OSH and found to have Left Occipital IPH and left posterior falx sub dural hematoma Mental / Cognitive Status: Alert;Oriented;Cooperative;Lethargic(hard of hearing) Persons Present: Daughter;Spouse;Family Pain: Patient has no complaint of pain Comments: PMH: NPH - SWEATBAND MAKER shunt, atrial fibrillation on coumadin, CAD s/p CABG and a known basilar artery aneurysm ; cochlear implants, menienrs disease Ambulation Assist: Independent Mobility at Household Level with Device Patient Owned Equipment: Single Point Cane;Roller Walker(handicap height toliet and shower chair) Home Situation: Lives with Family Type of Home: House Entry Stairs: 1-2 Stairs In-Home Stairs: 1-2 Stairs Comments: Patient has significant history of falls prior to admission. Bed Mobility/Transfer Bed Mobility: Supine to Sit: Standby Assist;Head of Bed Elevated Transfer Type: Sit to Stand Transfer: Assistance Level: Moderate Assist;From;Bed;To;Bed Side Chair Transfer: Assistive Device: Roller Walker Transfers: Type Of Assistance: Verbal Cues;For Balance;For Strength Deficit;For Safety Considerations End Of Activity Status: Up in Chair;Nursing Notified;Instructed Patient to Reque st Assist with Mobility;Instructed Patient to Use Call Light Gait Gait Distance: 450 feet Gait: Assistance Level: Minimal Assist;Moderate Assist Gait: Assistive Device: Roller Walker Gait: Descriptors: Forward trunk flexion;Step-To Gait;Variable step length Comments: variable gait speed, increased assistance with increased speed and tu rns due to decreased stability. festinating gait pattern. Activity Limited By: Complaint of Fatigue;Weakness Education Persons Educated: Patient Patient Barriers To Learning: Decreased Hearing Interventions: Repetition of Instructions;Family Education Teaching Methods: Verbal Instruction Patient Response: More Instruction Required Topics: Plan/Goals of PT Interventions;Mobility Progression;Safety Awareness;Up with Assist Only;Importance of Increasing Activity;Recommend Continued Therapy Assessment/Progress Impaired Mobility Due To: Decreased Strength;Impaired Balance;Safety Concerns;De creased Activity Tolerance Assessment/Progress: Should Improve w/ Continued PT AM-PAC 6 Clicks Basic Mobility Inpatient Turning from your back to your side [...] G Code Modifier for Basic Mobility: CK Goals Goal Formulation: With Patient Time For Goal Achievement: 7 days Patient Will Transfer Sit to Stand: w/ Stand By Assist Patient Will Ambulate: Greater than 200 Feet, w/ No Device, w/ Stand By Assist Patient Will Go Up / Down Stairs: 3-5 Stairs, w/ Stand By Assist Other Goal: Will score low fall risk on balance testing Plan Treatment Interventions: Mobility Training;Strengthening;Balance Activities Plan Frequency: 5 Days per Week PT Plan for Next Visit: increased gait stability and standing stability. PT Discharge Recommendations Recommendation: Inpatient setting;Recommend rehab medicine consult Patient Currently Requires Physical Assist With: Ambulation;Stairs;Transfers Patient Currently Requires Equipment: Owns what is needed Therapist: Ada Valladares, PT Date: 09/16/2019 ASSEMBLER * Rashawn Torres MD - 09/16/2019 7:20 AM PUMP ASSEMBLER Neurosurgery Progress Note Admission Date: 09/12/2019 LOS: 4 days Subjective: No acute events noted. Reports that seizure medications make the pat ient feel soporific, particularly in the AM. Objective: Awake, alert Unable to communicate without hearing aids in Follows commands in all extremities with good strength A/P: Estrada Godoy is a 84 y.o. male with Giant intracranial aneurysm [I6 7.1] Ruptured cerebral aneurysm (HCC) [I60.7] Patient Active Problem List Diagnosis Date Noted Intraparenchymal hematoma of brain (HCC) 09/13/2019 Ruptured cerebral aneurysm (HCC) 09/12/2019 Giant intracranial aneurysm 03/29/2019 Aneurysm (HCC) 03/27/2019 NPH (normal pressure hydrocephalus) ([facility]) 03/27/2019 Disorder of scalp 11/03/2018 Inactive Meniere's disease of both ears 11/05/2017 Hearing loss, bilateral 11/04/2017 Added automatically from request for surgery [id number] Neuro: Neurologically stable. Repeat CT head at 24 hour stable. Keppra 500 mg BID for seizure ppx. Q4h neurochecks. Codman 4. Pulmonary: Stable on RA CV: Maintain normotension. Hx a fib, holding warfarin due to hemorrhage. Cards consulted - currently not a candidate for watchman procedure. Continue amiodar one. Outpatient cardiac f/u and YLRIC - orders pended per Dr. Jordi caceres. GI: Reg diet FEN: Maintain euvolemia ID: Afebrile, no leukocytosis Heme: Stable Disposition/Family: Awaiting PT/OT eval. Likely AIRF Prophylaxis: A)GI: PPI B) Lines: No C) Urinary Catheter: No D) Antibiotic Usage: No E) VTE: Pharmacological prophylaxis; Contraindication: Bleeding risk; Greater than usual risk associated with surgery and Mechanical prophylaxis; Sequential c ompression device F) Restraints: Patient assessed for need for restraints. Please call [phone] with any questions. Rashawn Torres MD Pager [phone] * Cathryn Sandy RT - 09/16/2019 1:05 AM PUMP ASSEMBLER RT Adult Assessment Note NAME:Estrada Godoy :1935 AGE: 84 y.o. ADMISSION DATE: 09/12/2019 DAYS ADMITTED: LOS: 4 days RT Treatment Plan: Protocol Plan: Procedures Oxygen/Humidity: Discontinued Monitoring: Discontinued Criteria not met. No respiratory therapy indicated at this time. Vital Signs: Pulse: 75 RR: 16 PER MINUTE SpO2: 93 % O2 Device: (no added O2) Liter Flow: O2%: 21 % Breath Sounds: Clear (implies normal);Decreased Respiratory Effort: Non-Labored ASSEMBLER * Ben Rico OT - 09/15/2019 8:57 AM PUMP ASSEMBLER OCCUPATIONAL THERAPY ASSESSMENT NOTE Name: Estrada Godoy : 1935 Age: 84 y.o. Admission Date: 09/12/2019 LOS: 3 days Mobility Progressive Mobility Level: Walk in room Distance Walked (feet): 20 ft Level of Assistance: Assist X1 Assistive Device: Walker Time Tolerated: 11-30 minutes Activity Limited By: Fatigue;Weakness(balance) Subjective Pertinent Dx per Physician: 84 y.o. male with 2 day history of confusion, transf erred from OSH and found to have Left Occipital IPH and left posterior falx subd ural hematoma Precautions: Falls;Standard Pain / Complaints: Patient agrees to participate in therapy Comments: Pt supine in bed upon arrival. At end of visit, up to chair with TABs in place and all needs met. Objective Psychosocial Status: Willing and Cooperative to Participate Persons Present: Spouse Home Living Type of Home: House Home Layout: One Level;Stairs to Enter w/ Rails(one step to enter) Bathroom Shower / Tub: Walk-in Shower Bathroom Toilet: Standard Bathroom Equipment: Grab Bars in Shower;Built-in Seat in Shower;Grab Bars Around Toilet Home Equipment: Walker Prior Function Level Of Lucas: Independent with ADLs and functional transfers Lives With: Spouse Receives Help From: Spouse ADL Assist: Bath Stand By Assist Other Function Comments: reports 3 recent falls. Uses roller walker at base line. Independent with ADLs prior to admit, standby for bathing. ADL's Where Assessed: Standing at Sink;In Bathroom;Chair Grooming Assist: Minimal Assist Grooming Deficits: Steadying;Verbal Cueing;Supervision/Safety;Increased Time To Complete;Teeth Care LE Dressing Assist: Stand By Assist LE Dressing Deficits: Don/Doff R Sock;Don/Doff L Sock;Supervision/Safety Toileting Assist: Minimal Assist Toileting Deficits: Steadying;Verbal Cueing;Supervision/Safety;Increased Time To Complete Functional Transfer Assist: Minimal Assist Functional Transfer Deficits: Steadying;Verbal Cueing;Supervision/Safety;Increas ed Time to Complete;Toilet Transfer Comment: Supine to sit EOB with standby assist. Ambulates to/from bathroom, comp letes toileting and grooming with minimum assist and roller walker. Requires ass ist for turns and cues to use grab bars for safe transfer. Forward trunk flexion when standing at sink, cues to stand upright. Able to doff/don socks with close standby. Activity Tolerance Endurance: 3/5 Tolerates 25-30 Minutes Exercise w/Multiple Rests Sitting Balance: 3+/5 Sits w/o UE Support for 30 Seconds or Greater Cognition Overall Cognitive Status: Impaired Comprehension: Hard of Hearing Expression: Increased Time for Expression Social Interaction: Increased Time to Adjust Problem Solving: Direction Following Assist;Decreased Judgment/Safety Attention: Awake/Alert UE AROM Coordination: Adequate to Complete ADLs Grasp: Bilateral Grasp Functional for Activity Comment: BUE: WFL UE Strength / Tone Overall Strength / Tone: WFL Able to Perform ADL Tasks Comment: generalized weakness Education Persons Educated: Patient/Family Barriers To Learning: Decreased Hearing Interventions: Repetition of Instructions Teaching Methods: Verbal Instruction;Demonstration Patient Response: Return Demonstration Topics: Role of OT, Goals for Therapy;DME for Home Discharge;Adaptive Devices fo r ADLs;ADL Compensatory Techniques Goal Formulation: With Patient Assessment Assessment: Decreased ADL Status;Decreased UE ROM;Decreased UE Strength;Decrease d Safe/Judg during ADL;Decreased Cognition;Decreased Endurance;Decreased Fine Mo tor Coordination;Decreased Self-Care Trans;Decreased High-Level ADLs Prognosis: Good;w/Cont OT s/p Acute Discharge Goal Formulation: Patient Comments: Pt currently requiring minimum assist for functional mobility and ADLs due to decreased balance, endruance and strength. Pt would benefit from skilled OT to address defiicits and maximize indpendence with ADLs during acute stay an d post discharge. AM-PAC 6 Clicks Daily Activity Inpatient Putting [...] Frequency: 5x/week OT Plan for Next Visit: toilet transfers, progressive mobility, endurance buildi ng, assess vision ADL Goals Patient Will Perform Grooming: Standing at Sink;w/ Mod Independent Patient Will Perform Toileting: w/ Modified Independent Functional Transfer Goals Pt Will Perform All Functional Transfers: Modified Independent OT Discharge Recommendations Recommendation: Inpatient setting, Recommend rehab medicine consult Patient Currently Requires Physical Assist With: All personal care ADLs, All maile e functioning ADLs, Ambulation Patient Currently Requires Supervision For: ADLs, Mobility, Making decisions abo ut safety Therapist: SAMMY Hernández/Angely [id number] Date: 09/15/2019 ASSEMBLER * Elmer Junior MD - 09/15/2019 6:29 AM PUMP ASSEMBLER Neurosurgery Progress Note Admission Date: 09/12/2019 LOS: 3 days Subjective: No acute events noted. Objective: Awake, alert Unable to communicate without hearing aids in Follows commands in all extremities with good strength A/P: Estrada Godoy is a 84 y.o. 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 Repeat CT head at 24 hour stable. Keppra 500 mg BID for seizure ppx. Q4h neurochecks. Codman 4. Pulmonary: Stable on RA CV: Maintain normotension. Hx a fib, holding warfarin due to hemorrhage. Cards consulted - currently not a candidate for watchman procedure. Continue amiodar one. Outpatient cardiac f/u and LYRIC - orders pended per Dr. Bacon recs. GI: Reg diet FEN: Maintain euvolemia ID: Afebrile, no leukocytosis Heme: Stable Disposition/Family: Awaiting PT/OT eval. Likely AIRF Prophylaxis: A)GI: PPI B) Lines: No C) Urinary Catheter: No D) Antibiotic Usage: No E) VTE: Pharmacological prophylaxis; Contraindication: Bleeding risk; Greater than usual risk associated with surgery and Mechanical prophylaxis; Sequential c ompression device F) Restraints: Patient assessed for need for restraints. Please call [phone] with any questions. Elmer Junior MD Pager * Ben Rico OT - 09/14/2019 3:37 PM PUMP ASSEMBLER OCCUPATIONAL THERAPY NOTE Name: Estrada Godoy : 1935 Age: 84 y.o. Admission Date: 09/12/2019 LOS: 2 days The patient was not seen due to: Patient not available. Pt getting bladder scann ed and straight cathed. Attempted to see patient 2 time(s) Therapist: Ben Rico, OTR/L [id number] Date: 09/14/2019 ASSEMBLER * Rosalind Lewis RN - 09/14/2019 11:08 AM PUMP ASSEMBLER Pt arrived to unit via wheelchair accompanied by CARDIAC CATH LAB RADIOLOGY TECHNOLOGIST. Assisted to bed withou t difficulty. Skin c/d/i unless otherwise noted. Currently in bed, resting taylor etly, call light within reach. Will continue to monitor. ASSEMBLER * Sherice Holt RN - 09/14/2019 10:29 AM PUMP ASSEMBLER 1012: Pt Tele status at this time. 1055: Report given to Rosalind RAMIRES. 1100: Pt transferred to [facility] via wheelchair. All Pt belongings with Pt and Pt' s . Bedside safety check completed. 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 male with a PMH significant for NPH - SWEAT[employer]AND [employer] shunt , atrial fibrillation on coumadin, CAD s/p CABG and a known basilar artery aneur ysm who presented to an OSH ED with a 2 day history of confusion. CT Left Occipi dano IPH and Left Posterior Flax SDH. Transferred to [facility] for further care and N SG evaluation. Hospital and ICU course: 09/12: Admitted to NEICU. 09/13: Continue to monitor per NSG 09/14: stable for transfer Neuro: Left Occipital IPH Left Posterior Flax SDH Dolichoectatic Basilar Anuerysm Normal Pressure Hydrocephalus with SWEATBAND MAKER Shunt Total ICH score on admission:1 - Warfarin FORESTRY BIOLOGY SPECIALIST >Reversed with 2400 units of K-Centra @ OSH (INR 2.7) >Hold FORESTRY BIOLOGY SPECIALIST Warfarin -INR on admission: 1.3 >Maintain INR <1.4, Platelets >80k - Keppra 500mg BID - No acute neurosurgical intervention - Per NSG continue to monitor. CTA with grossly stable size aneurysm compared to March 2019 MRA - Per primary no additional imaging needed for now - No cognitive impairment suspected - OT/Rehabilitation medicine consult - Neuro-ICU monitoring, neurochecks q 1 hrs) CTA head 09/12:Unchanged left parieto-occipital parenchymal hemorrhage and m ild subdural hemorrhage along the posterior falx and left tentorium. There is no midline shift or descending herniation. No significant change in size of large basilar artery aneurysm.Left frontal SWEATBAND MAKER Shunt remains in similar position. Depression - FORESTRY BIOLOGY SPECIALIST Celexa 40 mg Sedation/Pain Management: - PRN APAP 5/325 - Assess for delirium daily Cardiac: CAD pAtrial Fibrilation Chronic HF - EF 45% - SBP goal: <140 - MAP goal > 65 - PRN Hydralazine, Labetalol - FORESTRY BIOLOGY SPECIALIST Amiodarone 200 mg BID - FORESTRY BIOLOGY SPECIALIST Losartan 50 mg daily - FORESTRY BIOLOGY SPECIALIST spironolactone 25 mg daily - FORESTRY BIOLOGY SPECIALIST Lipitor 80 mg daily - Cardiology following for anticoag recs/Watchman device - not current candidate as requires heparinization/DAPT x 4.5 mo. Respiratory: SYL Seasonal Allergies - RT Eval and Treat >Home CPAP - FORESTRY BIOLOGY SPECIALIST Zyrtec - FORESTRY BIOLOGY SPECIALIST Flonase - PaO2 goal >100, Spo2 goal >95 GI: - Feeding:Regular diet - PRN Ondansatron - FORESTRY BIOLOGY SPECIALIST PPI - neurosurgery bowel regimen, ensure daily BM (last FORESTRY BIOLOGY SPECIALIST) Heme: - Hgb: 9.6Hct: 29.2Plt: 199 - Daily CBC - SQ heparin for DVT prophylaxis - assess for coagulopathy, maintain platelets above 100k, INR <1.5 ID: - WBC 7.2 -Afebrile - Daily CBC - aim for normothermia, Temp <38.3 celsius, normothermia protocol if febrile Renal: NGOZI v CKD BPH - BUN: 18Creat: 1.37 (1.34) - Bladder scan protocol - FORESTRY BIOLOGY SPECIALIST Proscar 5 mg daily - FORESTRY BIOLOGY SPECIALIST Flomax - Daily BMP - Aim for normovolemia Intake/Output Summary (Last 24 hours) at 09/14/2019 0741 Last data filed at 09/13/2019 2200 Gross per 24 hour Intake 841.25 ml Output 1405 ml Net -563.75 ml Endocrine: - SB - Monitor glucose on daily BMP - Blood glucose goal 100-180mg/dl MSK Restless Leg Syndomre - FORESTRY BIOLOGY SPECIALIST Allopurinol - FORESTRY BIOLOGY SPECIALIST Requip FEN: - IVF:SL ok per primary - Electrolyte replacement as needed - Magnesium goal >2.0, i-Siddhartha goal > 1.0, Potassium goal >4.0 mEq/L Prophylaxis Review: A)GI: PPI B) Lines: No C) Urinary Catheter: No D) Antibiotic Usage: No E) VTE: Pharmacological prophylaxis; SQ Heparin F) Isolation: NA G)Seizures: Keppra I) Restraints: Patient assessed for need for restraints. Disposition/Family: per primary team Primary service: NSG Consults: Cardiology, Rehabilitative Medicine and Neurocritical Care SUBJECTIVE Estrada Godoy is a 84 y.o. male. Overnight Events: No new events noted. Patient reports being able to sleep overnight & denies any pain. OBJECTIVE Vital Signs: Last Filed Vital Signs: 24 Hour Ra nge BP: 106/50 (11/29 0700) Temp: 36.6 C (97.9 F) (09/14 0400) Pulse: 57 (09/14 700) Respirations: 12 PER MINUTE (09/14 700) SpO2: 95 % (09/14 700) BP: (92-125)/(48-93) Temp: [36.6 C (97.9 F)-37.6 C (99.7 F)] Pulse: [55-73] Respirations: [11 PER MINUTE-22 PER MINUTE] SpO2: [90 %-98 %] Intensity Pain Scale (Self Report): (not recorded) Vitals: 09/12/19 2310 Weight: 96.1 kg (211 lb 13.8 oz) Lines: Peripheral Line Drains: None Physical Exam: Blood pressure 106/50, pulse 57, temperature 36.6 C (97.9 F), height 182.9 c m (72"), weight 96.1 kg (211 lb 13.8 oz), SpO2 95 %. [place] coma score: E: 4 - Opens eyes on own M: 6 - Follows simple motor commands V: 5 - Alert and oriented Neuro: Mental Status: A&Ox4 Cranial Nerves: Cranial nerves 2-12 INTACT., Cranial nerve 2 (visual hernandez): R ight hemianopsia. - Pupil exam: Size: 2 Reactivity: brisk - EOM: intact - Grimace/facial movement: present - Cough: present Motor: RUE: Strength: 5/5; follows commands x 4 RLE: Strength: 5/5; LUE: Strength: 5/5; LLE: Strength: 5/5; Sensory: normal Lungs: clear to auscultation bilaterally Pulmonary: Respiratory status: Stable Heart: regular rate and rhythm, S1, S2 normal, no murmur, click, rub or gallop Abdomen: soft, non-tender. Bowel sounds normal. No masses, no organomegaly Extremities: extremities normal, atraumatic, no cyanosis or edema Skin: Skin color, texture, turgor normal. No rashes or lesions Point of Care Testing: (Last 24 hours) Glucose: 90 (09/14/19 0300) Lab Review: Pertinent labs reviewed Radiology and Other Diagnostic Procedures Review: Pertinent radiologic and diag nostic procedures reviewed. Martha Alba APRN Date: 09/14/[phone] ASSEMBLER * Paris Whiting MD - 09/14/2019 7:09 AM PUMP ASSEMBLER Neurosurgery Progress Note Admission Date: 09/12/2019 LOS: 2 days Subjective: No acute events noted. Objective: Awake, alert Unable to communicate without hearing aids in Follows commands in all extremities with good strength A/P: Estrada Godoy is a 84 y.o. 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 Repeat CT head at 24 hour stable. Keppra 500 mg BID for seizure ppx. Q1h neurochecks. Codman 4. Pulmonary: Stable on RA CV: Maintain SBP < 140. Hx a fib, holding warfarin due to hemorrhage. Cards consulted - currently not a candidate for watchman procedure. Continue amiodarone. Outpatient cardiac monitoring. GI: Reg diet FEN: Maintain euvolemia ID: Afebrile, no leukocytosis Heme: Stable Disposition/Family: Transfer to tele. PT/OT. Prophylaxis: A)GI: PPI B) Lines: No C) Urinary Catheter: No D) Antibiotic Usage: No E) VTE: Pharmacological prophylaxis; Contraindication: Bleeding risk; Greater than usual risk associated with surgery and Mechanical prophylaxis; Sequential c ompression device F) Restraints: Patient assessed for need for restraints. Please call [phone] with any questions. Paris Whiting MD Pager [phone] * Juan Acuña MD - 09/13/2019 11:20 AM PUMP ASSEMBLER NEURO-ENT ICU Critical Care Progress Note Today's Date: 09/13/2019 Name: Estrada Godoy Admission Date: 09/12/2019 LOS: 1 day I ATTESTATION Date of Service: 09/13/2019 I have seen, personally fully evaluated, and discussed patient with the NEURO-EN T ICU team. The patient is critically ill with ICH, giant basilar aneurysm. I spent 35 minutes (excluding time spent performing or supervising any procedure s) providing and personally directing critical care services including neuro mon itoring and management, pain/sedation/delirium mgt, hemodynamic monitoring and m anagement, lab and radiology review, medication review and management, fluid and electrolyte management and coordination of care. I suspect he has had hemorrhagic transformation of an ischemic stroke, likely fr om thromboembolism related to aneurysm. - aneurysm mx per NSGY - exam stable, repeat CT in 24 hours for stability, cont q1 neuromonitoring - if no surgical plans advance diet as tolerated and dc iv fluids - cont FORESTRY BIOLOGY SPECIALIST amiodarone, requip, aldactone, flomax and proscar - LEV per NSGY for sz ppx - PT/OT consults Dispo: This patient is critically ill with dysfunction of multiple organ systems and is at risk for additional life threatening deterioration. Cont ICU care. Staff name: Juan Acuña MD Date: 09/13/2019 Artificial airway: None Ventilator/ Respiratory Therapy: No Vent weaning trial: Not applicable EVD: no Prophylaxis Review: Lines: No Urinary Catheter: No Antibiotic Usage: No VTE: Mechanical prophylaxis; Sequential compression device Lab Review: Pertinent labs reviewed Point of Care Testing: (Last 24 hours): Glucose: 100 (09/13/19 0418) Radiology and Other Diagnostic Procedures Review: Pertinent radiology reviewed. Juan Acuña MD 09/13/2019 Pager: [phone] ASSEMBLER * James Herrera RN - 09/13/2019 7:45 AM PUMP ASSEMBLER Patient arrived to room # (3034*) via bed accompanied by RN. Patient transferred to the bed with assistance. Bedside safety checks completed. Initial patient as sessment completed. Refer to flowsheet for details. Admission skin assessment completed with: IKE Rothman Pressure injury present on arrival?: No 1. Head/Face/Neck: No 2. Trunk/Back: No 3. Upper Extremities: No 4. Lower Extremities: No 5. Pelvic/Coccyx: No 6. Assessed for device associated injury? yes 7. Malnutrition Screening Tool (Nursing Nutrition Assessment) Completed? Yes See Doc Flowsheet for additional wound details. 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 male with a PMH significant for NPH - SWEAT[employer] shunt , atrial fibrillation on coumadin, CAD s/p CABG and a known basilar artery aneur ysm who presented to an OSH ED with a 2 day history of confusion. CT Left Occipi dano IPH and Left Posterior Flax SDH. Transferred to [facility] for further care and N SG evaluation. Hospital and ICU course: 09/12: Admitted to NEICU. 09/13: Continue to monitor per NSG Neuro: Left Occipital IPH Left Posterior Flax SDH Dolichoectatic Basilar Anuerysm Normal Pressure Hydrocephalus with SWEATBAND MAKER Shunt Total ICH score on admission: 1 - Warfarin FORESTRY BIOLOGY SPECIALIST > Reversed with 2400 units of K-Centra @ OSH > Hold FORESTRY BIOLOGY SPECIALIST Warfarin > Hold all AC - INR on admission: 1.3 > Maintain INR <1.4, Platelets >80k - Keppra 500mg BID - No acute neurosurgical intervention - Per NSG continue to monitor. CTA with grossly stable size compared to March MRA - Per primary no additional imaging needed for now - No cognitive impairment suspected - Rehabilitation medicine consult - Neuro-ICU monitoring, neurochecks q 1 hrs) CTA: Unchanged left parieto-occipital parenchymal hemorrhage and mild subdural hemorrhage along the posterior falx and left tentorium. There is no midline shif t or descending herniation. No significant change in size of large basilar arter y aneurysm. Left frontal SWEAT[employer]AND MAKER Shunt remains in similar position. Depression - FORESTRY BIOLOGY SPECIALIST Celexa Sedation/Pain Management: RLS - FORESTRY BIOLOGY SPECIALIST Requip HS - PRN APAP, Hydrocodone - Assess for delirium daily Cardiac: CAD Atrial Fibrilation - SBP goal: <140 - MAP goal > 65 - PRN Hydralazine, Labetalol - FORESTRY BIOLOGY SPECIALIST Amiodarone - FORESTRY BIOLOGY SPECIALIST Losartan - FORESTRY BIOLOGY SPECIALIST Aldactone - FORESTRY BIOLOGY SPECIALIST Lipitor - Cardiology following for anticoag recs/Watchman device Respiratory: SYL Seasonal Allergies - RT Eval and Treat > Home CPAP - FORESTRY BIOLOGY SPECIALIST Zyrtec - FORESTRY BIOLOGY SPECIALIST Flonase - PaO2 goal >100, Spo2 goal >95 GI: - Feeding: Regular diet - PRN Ondansatron - FORESTRY BIOLOGY SPECIALIST PPI - neurosurgery bowel regimen, ensure daily BM Heme: Hgb: 9.8 Hct: 29.4 Plt: 229 - Daily CBC - assess for coagulopathy, maintain platelets above 100k, INR <1.5 ID: - WBC 8.6 - Afebrile - Daily CBC - aim for normothermia, Temp <38.3 celsius, normothermia protocol if febrile Renal: BUN: 18 Creat: 1.34 (1.40) NGOZI v CKD BPH - Bladder scan protocol - FORESTRY BIOLOGY SPECIALIST Proscar - FORESTRY BIOLOGY SPECIALIST Flomax - Daily BMP - Aim for normovolemia Endocrine: SB - Monitor glucose on chemistry - Blood glucose goal 100-180mg/dl MSK Restless Leg Syndomre - FORESTRY BIOLOGY SPECIALIST Allopurinol - FORESTRY BIOLOGY SPECIALIST Requip FEN: - IVF: SL ok per primary - Electrolyte replacement as needed - Magnesium goal >2.0, i-Siddhartha goal > 1.0, Potassium goal >4.0 mEq/L Prophylaxis Review: A)GI: PPI B) Lines: No C) Urinary Catheter: No D) Antibiotic Usage: No E) VTE: Pharmacological prophylaxis; Contraindication: Active bleeding; Cerebr al hemorrhage and Mechanical prophylaxis; Sequential compression device F) Isolation: No G)Seizures: Keppra I) Restraints: Patient assessed for need for restraints. Disposition/Family: ICU Primary service: NSG Consults: NCC, Rehab, Cardiology SUBJECTIVE Estrada Godoy is a 84 y.o. male. Overnight Events: No new events noted. OBJECTIVE Vital Signs: Last Filed Vital Signs: 24 Hour Ra nge BP: 139/95 (09/13 700) Temp: 36.8 C (98.2 F) (09/13 400) Pulse: 67 (09/13 700) Respirations: 15 PER MINUTE (09/13 700) SpO2: 98 % (09/13 700) Height: 182.9 cm (72") (09/12 2310) Weight: 96.1 kg (211 lb 13.8 oz) (09/12 2310) BP: (117-139)/(72-95) Temp: [36.8 C (98.2 F)-37.2 C (99 F)] Pulse: [59-71] Respirations: [11 PER MINUTE-24 PER MINUTE] SpO2: [93 %-98 %] Intensity Pain Scale (Self Report): (not recorded) Vitals: 09/12/192309 Weight: 96.1 kg (211 lb 13.8 oz) Lines: Peripheral Line Drains: None Intake/Output Summary: (Last 24 hours) Intake/Output Summary (Last 24 hours) at 09/13/2019710 Last data filed at 09/13/2019699 Gross per 24 hour Intake 525 ml Output 250 ml Net 275 ml Physical Exam: Blood pressure (!) 139/95, pulse 67, temperature 36.8 C (98.2 F), height 182 .9 cm (72"), weight 96.1 kg (211 lb 13.8 oz), SpO2 98 %. [place] coma score: E: 4 - Opens eyes on own M: 6 - Follows simple motor commands V: 5 - Alert and oriented Neuro: Mental Status: AOx4, Extremely [place] Cranial Nerves: - Right hemianopia - Pupil exam: Size: 3 Reactivity : brisk - EOM: intact Motor: RUE: Strength: 5/5; follows commands RLE: Strength: 5/5; follows commands LUE: Strength: 5/5; follows commands LLE: Strength: 5/5; follows commands Sensory: normal Coordination: intact Lungs: clear to auscultation bilaterally Pulmonary: Airway status stable, on home CPAP Heart: S1/S1 noted on ascultation, regularly irregular rhythm Abdomen: soft, non-tender. Bowel sounds normal. No masses, no organomegaly Extremities: extremities normal, atraumatic, no cyanosis or edema Skin: Skin color, texture, turgor normal. No rashes or lesions Point of Care Testing: (Last 24 hours) Glucose: 100 (09/13/19 0418) Lab Review: Pertinent labs reviewed Radiology and Other Diagnostic Procedures Review: Pertinent radiologic and diag nostic procedures reviewed. Funmilayo Barger APRN Date: 09/13/[phone] I spent 55 minutes managing the care of this patient. This patient is critically ill with an IPH and requires critical care monitoring. Cares included: detailed neurologic and systems exam, medication review, laboratory data review and inte rpretation, electrolyte management, review of available imaging, DVT/PE prophyla xis review, diet review, activity review and coordination of care with consulted teams. ASSEMBLER * Kenan Sandy, RT - 09/13/2019 12:19 AM PUMP ASSEMBLER RT Adult Assessment Note NAME:Estrada Godoy :1935 AGE: 84 y.o. ADMISSION DATE: 09/12/2019 DAYS ADMITTED: LOS: 1 day RT Treatment Plan: Protocol Plan: Procedures Oxygen/Humidity: O2 to keep SpO2 > 92% Monitoring: Pulse oximetry BID & PRN Additional Comments: Impressions of the patient: Patient in no distress. Patient is hard of hearing. Family assisted with answering questions. Intervention(s)/outcome(s): Monitor oxygen saturations. Patient education that was completed: None Recommendations to the care team: None Vital Signs: Pulse: 60 RR: 16 PER MINUTE SpO2: 94 % O2 Device: Liter Flow: 2 Lpm O2%: 21 % Breath Sounds: Clear (implies normal) Respiratory Effort: Non-Labored ASSEMBLER documented in this encounter H&P Notes * Elmer Junior MD - 09/13/2019 12:22 AM PUMP ASSEMBLER Neurosurgery History and Physical Examination Estrada Godoy Admission Date: 09/12/2019 Assessment/Plan: Estrada Goody is a 84 y.o. male who presents with a new left occipital IP H and left posterior falx subdural hematoma 1. Left Occipital IPH and left posterior falx subdural hematoma - Appears associated with distal left SOLE ROUGHER branches. 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 CTA with grossly stable size compared to March 2019 MRA NPH - Ventricles remain stable and depressed in size post SWEATBAND MAKER shunt placement - Continue Codman shunt at setting of 4 __ Chief Complaint: Lethargy, dizziness, delirium History of Present Illness: Estrada Godoy is a 84 y.o. male with a known past medical history of a do lichoectatic basilar aneurysm and normal pressure hydrocephalus who presented to an outside hospital for progressive lethargy, delirium, dizziness, and decreased fluid intake throughout this week. Family also reports a fever up to 102.5 to day. The patient himself states that he is tired and points to his left tempora l region pain. Head CT was done at the outside hospital which revealed a left o ccipital IPH. Patient takes warfarin for atrial fibrillation and had a INR of 2 .7 at the outside hospital. This was reversed with Kcentra. The patient is fol lowed with Dr. Weber for his dolichoectatic basilar aneurysm therefore was tr ansferred here for further work-up and care. Upon arrival the patient is alone without family to provide further history. Th e patient's hearing aid batteries have and he is unable to hear me without assistive devices. The limited history was performed as a result. The patient admits headache in the left temporal region and denies vision changes, weakness, sensory changes, nausea/vomiting. Past Medical History: Medical History: Diagnosis Date Coronary artery disease Hearing loss SYL on CPAP Past Surgical History: Surgical History: Procedure Laterality Date INSERTION COCHLEAR DEVICE (CPT L8614) Right 02/24/2018 Performed by Yung Moreno MD at [facility] OR/Periop ADJACENT TISSUE TRANSFER PEDICLE FLAP (THINNING OF SCALP ABOVE MAGNET) Right 11/03/2018 Performed by Yung Moreno MD at [facility] OR/Periop CREATION SHUNT - VENTRICULO-PERITONEAL Right 03/29/2019 Performed by Ton Weber MD at [facility] OR/Periop CORONARY ANGIOPLASTY x5 HX HEART CATHETERIZATION x8 with stents Social History: Social History Tobacco Use Smoking status: Never Smoker Smokeless tobacco: Never Used Substance Use Topics Alcohol use: Yes Alcohol/week: 20.0 standard drinks Types: 1 Cans of beer per week Drug use: No Family History: No family history on file. Allergies: Contrast dye iv, iodine containing [iodinated contrast media] Medications: Medications Prior to Admission Medication Sig acetaminophen (TYLENOL) 500 mg tablet Take 1,000 mg by mouth every 6 hours a s needed for Pain. Max of 4,000 mg of acetaminophen in 24 hours. allopurinol (ZYLOPRIM) 100 mg tablet Take 100 mg by mouth daily. Take with f ood. amiodarone (CORDARONE) 200 mg tablet Take 200 mg by mouth twice daily. Take with food. atorvastatin (LIPITOR) 80 mg tablet Take 80 mg by mouth at bedtime daily. cetirizine (ZYRTEC) 10 mg tablet Take 10 mg by mouth every morning. cholecalciferol(+) (VITAMIN D-3) 5,000 unit tablet Take 5,000 Units by mouth twice daily. citalopram (CELEXA) 40 mg tablet Take 40 mg by mouth daily. finasteride (PROSCAR) 5 mg tablet Take 5 mg by mouth daily. fluticasone propionate (FLONASE) 50 mcg/actuation nasal spray Apply 1 spray to each nostril as directed daily. Shake bottle gently before using. losartan (COZAAR) 50 mg tablet Take 50 mg by mouth daily. multivitamin with minerals (MULTIVITAMIN & MINERAL FORMULA PO) Take 0.5 tablets by mouth at bedtime daily. pantoprazole DR (PROTONIX) 40 mg tablet Take 40 mg by mouth daily. rOPINIRole (REQUIP) 0.25 mg tablet Take 0.25 mg by mouth at bedtime daily. spironolactone (ALDACTONE) 25 mg tablet Take one tablet by mouth daily. Take with food. tamsulosin (FLOMAX) 0.4 mg capsule Take 0.4 mg by mouth daily. Do not crush, chew or open capsules. Take 30 minutes following the same meal each day. vitamins, B complex tab Take 1 tablet by mouth daily. warfarin sodium (WARFARIN PO) Take by mouth. Titrate to labs as per Cardiol ogist instructions. Review of Systems: Unable to obtain due to hearing difficulties Physical Exam: Vital Signs: Last Filed In 24 Hours Vital Signs: 24 Hour Range BP: 132/86 (09/12 2310) Temp: 37.2 C (99 F) (09/12 2310) Pulse: 60 (09/13 001) Respirations: 16 PER MINUTE (09/13 001) SpO2: 94 % (09/13 17) Height: 182.9 cm (72") (09/12 2310) BP: (132)/(86) Temp: [37.2 C (99 F)] Pulse: [60-71] Respirations: [16 PER MINUTE-24 PER MINUTE] SpO2: [93 %-94 %] General Appearance: No acute distress Lungs: Good air movement and equal chest rise bilaterally Heart: Regular rate and rhythm Abdomen: Soft, obese Extremities: No edema, redness or tenderness in the calves or thighs Integumentum: No large rashes Psychiatric: Unable to assess Neurologic Exam: Mental Status: Awake, alert. Patient responds and tracks to his name. He mimic s commands appropriately but is unable to gain his verbally due to hearing diffi culties at this time. Pupils: Pupils equal round and reactive to light Cranial Nerves: Unable to assess due to hearing difficulties. Patient has no gr oss face or extraocular muscle weakness on visual examination. Motor: Grossly 5 out of 5 motor strength at bed level in all four extremities Lab Tests: Hematology: Lab Results Component Value Date HGB 10.9 09/12/2019 HCT 33.0 09/12/2019 PLTCT 258 09/12/2019 WBC 8.7 09/12/2019 NEUT 76 09/12/2019 ANC 6.70 09/12/2019 ALC 1.30 09/12/2019 KAT 8 09/12/2019 AMC 0.70 09/12/2019 ABC 0.10 09/12/2019 MCV 83.3 09/12/2019 MCHC 33.1 09/12/2019 MPV 7.4 09/12/2019 RDW 17.1 09/12/2019 General Chemistry: Lab Results Component Value Date NA 134 09/12/2019 K 4.0 09/12/2019 CL 102 09/12/2019 CO2 23 09/12/2019 BUN 18 09/12/2019 CR 1.40 09/12/2019 GLU 109 09/12/2019 CA 8.5 09/12/2019 MG 1.7 09/12/2019 PO4 3.1 09/12/2019 General Chemistry: Lab Results Component Value Date GAP 9 09/12/2019 ALBUMIN 3.7 09/12/2019 TOTBILI 1.4 09/12/2019 TOTPROT 6.7 09/12/2019 AST 40 09/12/2019 ALT 44 09/12/2019 ALKPHOS 93 09/12/2019 Radiology and other Diagnostics Review: CT head reviewed with evidence of left occipital intraparenchymal hemorrhage and subdural hematoma which extends up and along the posterior falx. No evidence of subarachnoid hemorrhage. No evidence of intraventricular hemorrhage. Ventric les remained nondistended and stable in configuration to his prior CT scan. Elmer Junior MD Pager ASSEMBLER documented in this encounter Consult Notes * Yonatan Lazar MD - 09/14/2019 11:47 AM PUMP ASSEMBLER Associated Order(s): CONSULT REHABILITATION MEDICINE PHYSICIAN ATTESTATION I personally performed the dey portions of the E/M visit, discussed case with re sident and concur with resident documentation of history, physical exam, assessm ent, and treatment plan unless otherwise noted. Staff name: Yonatan Lazar MD Date: 09/14/2019 Physical Medicine & Rehabilitation Consult Note Date of Service: 09/14/2019 Estrada Godoy is a 84 y.o. male. : 1935 Primary Insurance: MEDICARE Secondary Insurance: [facility] Tertiary Insurance: Financial Class: Medicare Date of Admission: 09/12/2019 Referring Physician: Ton Weber MD Reason for Consult: evaluate for Post-Acute Rehab/Placement Precautions: Fall, seizure Weight bearing Precautions: WBAT Active Problems Diagnosis Date Noted Intraparenchymal hematoma of brain ([facility]) 09/13/2019 Ruptured cerebral aneurysm ([facility]) 09/12/2019 Giant intracranial aneurysm 03/29/2019 Aneurysm ([facility]) 03/27/2019 NPH (normal pressure hydrocephalus) ([facility]) 03/27/2019 Disorder of scalp 11/03/2018 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 male admitted to [facility] on 09/12/2019 with the following issues: L occipital IPH and L posterior Flax SDH Impairments: pain, poor activity tolerance, weakness and apraxia Activity Limitations: grooming, bathing, dressing - lower, toileting, transfers , ambulation, stairs and comprehension Participation Restrictions: unable to return home safely Post-acute care rehabilitation needs: Likely Acute IRF -Patient meets criteria with medical complexity and therapeutic goals for admiss ion to acute inpatient rehab facility. -At this moment, patient will likely need ongoing PT/OT/SWITCHBOARD INSPECTOR therapy services. -Will await PT/OT recommendations -Given the patient's high medical complexity and co morbidities and in conjuncti on with significant functional goals with PT and OT, the patient will require da yoselin physician oversight and intensive rehab therapies at an acute inpatient reha bilitation after acute inpatient hospitalization. Patient's family prefers [facility] in [place] if possible. -Patient will continue to work on goals of mobility & self-cares at a wheelchair level. -Will continue to follow as patient becomes medically stable and progresses with therapy. Michael Severino, DO Rehab Consult Pager: [phone] History of Present Illness Hospital Course: Estrada Godoy is an 84-year-old male with past medical history of basilar ane urysm and NPH with shunt, A. fib on warfarin, who presented from OSH for progres sive lethargy, delirium, dizziness, decreased fluid intake of 1 week onset. Pat ient was also endorsing fatigue and left temporal region pain. CT head was done at OSH which revealed left occipital IPH. INR was 2.7 and this was reversed wi th Kcentra. Patient was managed non-interventionally. And is on Keppra 500 mg twice daily and admitted to neuro ICU for monitoring. CTA showed unchanged left parieto-occipital parenchymal hemorrhage and mild subdural hemorrhage along pos terior falx and left tentorium. No midline shift or descending herniation. No significant change in size of large basilar artery aneurysm. Currently, patient states the pain is controlled. Per family, the patient has h ad what appears to have been intensive acute inpatient rehab in the past in [facility]. Prior to hospitalization, patient was modified independent with the use of roller walker. Patient used RW largely for balance. He resides in a single level home with 12 steps to enter. He lives with his . Patient had diane haile participated in first session of PT prior to arrival. Recommendations pend ing. Patient has not had a chance to work with occupational therapy during this hospitalization. Past Medical History Medical History: Diagnosis Date Coronary artery disease Hearing loss SYL on CPAP Past Surgical History Surgical History: Procedure Laterality Date INSERTION COCHLEAR DEVICE (CPT L8614) Right 02/24/2018 Performed by Yung Moreno MD at [facility] OR/Periop ADJACENT TISSUE TRANSFER PEDICLE FLAP (THINNING OF SCALP ABOVE MAGNET) Right 11/03/2018 Performed by Yung Moreno MD at [facility] OR/Periop CREATION SHUNT - VENTRICULO-PERITONEAL Right 03/29/2019 Performed by Ton Weber MD at [facility] OR/Periop CORONARY ANGIOPLASTY x5 HX [...] and Sexual Activity Alcohol use: Yes Alcohol/week: 20.0 standard drinks Types: 1 Cans of beer per week Drug use: No Sexual activity: Not on file Other Topics Concern Not on file Social History Narrative Not on file Family history reviewed; non-contributory Medications: amiodarone (CORDARONE) tablet 200 mg 200 mg Oral BID atorvastatin (LIPITOR) tablet 40 mg 40 mg Oral QHS citalopram (CELEXA) tablet 20 mg 20 mg Oral QDAY docusate (COLACE) capsule 100 mg 100 mg Oral BID finasteride (PROSCAR) tablet 5 mg 5 mg Oral QDAY heparin (porcine) PF syringe 5,000 Units 5,000 Units Subcutaneous Q8H levETIRAcetam (KEPPRA) tablet 500 mg 500 mg Oral BID losartan (COZAAR) tablet 50 mg 50 mg Oral QDAY milk of magnesia (CONC) oral suspension 10 mL 10 mL Oral QDAY pantoprazole DR (PROTONIX) tablet 40 mg 40 mg Oral QDAY rOPINIRole (REQUIP) tablet 0.25 mg 0.25 mg Oral QHS senna/docusate (SENOKOT-S) tablet 1 tablet 1 tablet Oral BID spironolactone (ALDACTONE) tablet 25 mg 25 mg Oral QDAY tamsulosin (FLOMAX) capsule 0.4 mg 0.4 mg Oral QDAY PRN Medications: hydrALAZINE Q6H PRN, HYDROcodone/acetaminophen Q4H PRN, labetalol (NORMODYNE; TR ANDATE) injection Q15 MIN PRN, ondansetron (ZOFRAN) IV Q6H PRN Allergies: Allergies Allergen Reactions Contrast Dye Iv, Iodine Containing [Iodinated Contrast Media] ITCHING Prior Level of Function Self-Care/ADLs: Supervision Mobility: Modified independent Home Environment: Home Situation: Lives with Family (09/14/2019 10:00 AM) Patient Owned Equipment: Single Point Cane;Roller Walker (handicap height toliet and shower chair) (09/14/2019 10:00 AM) Type of Home: House (09/14/2019 10:00 AM) Entry Stairs: 1-2 Stairs (09/14/2019 10:00 AM) In-Home Stairs: 1-2 Stairs (09/14/2019 10:00 AM) Comments: Patient has signfcant history of falls prior to admission. (09/14/2019 10:00 AM) Bathroom Equipment: Shower Chair (04/03/2019 9:00 AM) Support System: Current Level of Function Current Level Of Function: PT Gait:Gait Distance: 200 feet Gait: Assistance Level: Minimal Assist Gait: Ass istive Device: Roller Walker Bed Mobility/Transfers Bed Mobility: Supine to Sit: Standby Assist, Head of Bed Elevated Transfer Type: Sit to Stand Transfer: Assistance Level: To/From, Bed, Moderate Assist Transfer: Assistive Device: Roller Walker Transfers: Type Of Assistance: Verbal Cues, For Balance, For Strength Deficit, F or Safety Considerations End Of Activity Status: Up in Chair, Nursing Notified, Instructed Patient to Req uest Assist with Mobility, Instructed Patient to Use Call Light OT SWITCHBOARD INSPECTOR COGNITIVE EVALUATION SUMMARY PRAGMATICS: BEHAVIOR: AUDITORY COMPREHENSION: ORIENTATION: AUDITORY ATTENTION/WORKING MEMORY: AUDITORY MEMORY/SUSTAINED ATTENTION: NEW LEARNING: SEQUENCING/ORGANIZATION: PROBLEM SOLVING: REASONING: MATH/MONEY SKILLS: VISUAL PERCEPTUAL: SWALLOW EVALUATION SUMMARY Review of Systems A 14 point review of systems was negative except for: HPI Physical Exam BP: 112/72 (09/14 1115) Temp: 36.4 C (97.6 F) (09/14 111) Pulse: 63 (09/14 1115) Respirations: 20 PER MINUTE (09/14 1115) SpO2: 92 % (09/14 1115) SpO2 Pulse: 71 (09/14 1000) Body mass index is 28.73 kg/m. Gen: Alert & Oriented X 3, No Acute Distress HEENT: NCAT, EOMI, MMM Neck: Supple, no elevated JVP Heart: Regular Rate & Rhythm, no m/g/r Lungs: Clear to auscultation bilaterally, no w/r/r Abdomen: Soft, non-tender, non-distended : -Mueller Skin: intact without visualized breakdown Ext: no clubbing, cyanosis, edema MS:*likely limited by apraxia Root Right Left Shoulder Abduction C5 5 5 Elbow Flexion C5 5 5 Elbow Extension C7 5 5 Wrist Extension C6 5 5 Finger Flexion C8 5 5 Finger Abduction T1 5 5 Hip Flexion L2 5 5 Knee Extension L3 5 5 Dorsiflexion L4 5 4 Plantarflexion S1 5 5 EHL Extension L5 5 5 Neuro: Cranial Nerves Cranial Nerves 2-12 are grossly intact DTR's No hyperrflexia Babinski Plantar Reflex is Downgoing Bilaterally Pagan Normal Heel to Corona Normal Upper Extremity Tone Normal Lower Extremity Tone Normal Upper Extremity Sensation Intact to light touch bilaterally Lower Extremity Sensation Intact to light touch bilaterally Clonus Negative Bilaterally Proprioception Intact Bilaterally Memory/Cognition/Speech Difficulty hearing. No slurred speech. Answers questions appropriately Intake/Output Summary: Intake/Output Summary (Last 24 hours) at 09/14/2019 1147 Last data filed at 09/14/2019 0800 Gross per 24 hour Intake 463.25 ml Output 1275 ml Net -811.75 ml Stool Occurrence: 0 (04/04/2019 7:38 AM) Last Bowel Movement Date: 03/30/19 (04/04/2019 8:22 AM) Bladder Scan (mL): 351 milliliters (09/14/2019 8:00 AM) Straight Cath (mL): 450 (09/14/2019 8:00 AM) No data recorded No data recorded No data recorded Basic Metabolic Profile Lab Results Component Value Date/Time NA 134 (L) 09/14/2019 03:00 AM K 4.0 09/14/2019 03:00 AM CA 8.1 (L) 09/14/2019 03:00 AM CL 105 09/14/2019 03:00 AM CO2 22 09/14/2019 03:00 AM Lab Results Component Value Date/Time BUN 18 09/14/2019 03:00 AM CR 1.37 (H) 09/14/2019 03:00 AM GLU 90 09/14/2019 03:00 AM CBC w diff Lab Results Component Value Date/Time WBC 7.2 09/14/2019 03:00 AM RBC 3.48 (L) 09/14/2019 03:00 AM HGB 9.6 (L) 09/14/2019 03:00 AM HCT 29.2 (L) 09/14/2019 03:00 AM MCV 83.8 09/14/2019 03:00 AM MCH 27.7 09/14/2019 03:00 AM RDW 16.8 (H) 09/14/2019 03:00 AM PLTCT 199 09/14/2019 03:00 AM MPV 7.5 09/14/2019 03:00 AM Lab Results Component Value Date/Time NEUT 73 09/14/2019 03:00 AM ANC 5.20 09/14/2019 03:00 AM LYMA 17 (L) 09/14/2019 03:00 AM ALC 1.20 09/14/2019 03:00 AM KAT 8 09/14/2019 03:00 AM AMC 0.60 09/14/2019 03:00 AM EOSA 1 09/14/2019 03:00 AM AEC 0.10 09/14/2019 03:00 AM BASA 1 09/14/2019 03:00 AM ABC 0.00 09/14/2019 03:00 AM Radiology: Reviewed ASSEMBLER * Margot Bacon MD - 09/13/2019 12:00 PM PUMP ASSEMBLER Associated Order(s): CONSULT CARDIOLOGY PHYSICIAN Admission Date: 09/12/2019 Date of Consultation: 09/13/2019 LOS: 1 day Requesting Physician: Ton Weber MD Consulting Physician: Dr. Margot Bacon MD Code Status: Full Code Reason for Consultation Opinion and recommendations regarding Afib on anticoagulation. Here for intracra nial hemorrhage, would like to consider watchman or other options to obviate nee d for anticoagulation Assessment: Left Occipital IPH and left posterior falx subdural hematoma -Transferred from OSH with mental status changes and found to have left occipita l IPH -On chronic OAC Warfarin and INR 2.7 at OSH -Neurosurgery managing conservatively for now. Considering angiogram. -FORESTRY BIOLOGY SPECIALIST warfarin on hold History of Basilar aneurysm -Known history and managed by Dr. Weber of neurology/surgery Paroxysmal atrial fibrillation - reports history of paroxysmal atrial fibrillation which was diagnosed appr oximately 1 year ago -He follows with a bench assembler battery in [place], [place] -FORESTRY BIOLOGY SPECIALIST amiodarone 200 mg twice daily, warfarin anticoagulation -Patient denies symptoms of atrial fibrillation which the verifies states t hat he "never" has palpitations, dizziness, or lightheadedness -EKG on admission reveals sinus rhythm with left bundle branch block, telemetry reviewed revealing sinus rhythm - reports he has been previously evaluated for consideration of a watchman c losure device by his primary bench assembler battery in [place] however was not deemed a ca ndidate at that time NPH -SWEATBAND MAKER shunt in place Coronary artery disease - reports a history of 10 previous stents and 5 different angioplasties -FORESTRY BIOLOGY SPECIALIST atorvastatin -Review of outside records reveals last heart catheterization January 2018 with 50 % D2 disease, 30 to 50% proximal RCA disease and 30 to 40% ostial RCA disease, n o intervention was done at that time Hypertension -FORESTRY BIOLOGY SPECIALIST losartan, spironolactone Hyperlipidemia -FORESTRY BIOLOGY SPECIALIST atorvastatin 80 Chronic systolic heart failure, EF 45% -Echo 04/04 revealed an EF of 45% with grade 1 diastolic dysfunction with aortic sclerosis and no stenosis, moderately enlarged aortic root, ascending aorta -FORESTRY BIOLOGY SPECIALIST losartan 50 mg daily, Spironolactone 25 mg daily -Patient has no overt signs of volume overload or acute decompensation at this t tory History of AAA with endograft repair Plan: Patient seen and discussed with Dr. Bacon, attending cardiology. Given his acu te bleed he currently is not a candidate for watchman left atrial appendage clos ure as this procedure would require heparinization at the time of the procedure as well as continued anticoagulation for at least 6 weeks after watchman closure . This will be followed by 4-1/2 months of dual antiplatelet therapy with Plavi x and aspirin. Therefore watchman procedure at this time is contraindicated how ever he could be evaluated in the outpatient setting once his acute issues have resolved for consideration of this procedure. This would require a LYRIC to [facility] evaluate the left atrial appendage and determine his candidacy. Would also recommend to continue to monitor on telemetry while he is here. We c ould consider long-term library monitor at discharge to assess his A. fib burden . Recommend to continue amiodarone at 200 mg twice daily to help with suppressing atrial arrhythmias while his chronic anticoagulation is on hold. We appreciate the opportunity participate in his care Patient seen and discussed with MD Alice Plasencia, ORACLE OBIEE DEVELOPER Pager [phone] ATTESTATION I personally interviewed and examined the patient. I have reviewed the history, physical, impression and plan outlined by the Nurse Practitioner. The patient presents with history of basilar aneurysm and normal pressure hydr ocephalus, coronary artery disease, hypertension, paroxysmal atrial fibrillation on chronic anticoagulation with warfarin, also history of aortic aneurysm with endograft repair and chronic systolic heart failure with EF of approximately 45% . On examination there is patient is comfortable, lungs are clear to auscultation bilaterally, regular rhythm, normal heart sounds, no S3 or S4, no heart murmurs abdomen is soft and non tender, no NEDRA patient appears lethargic. My impression is left occipital intraparenchymal hemorrhage and left posterior f anabel subdural hematoma, history of basilar aneurysm, history of paroxysmal atrial fibrillation, currently normal sinus rhythm, patient has been on amiodarone. My plan is: At present time this patient is not a candidate for watchman device, this procedure would require systemic anticoagulation and patient is not a cand idate for anticoagulation at this point in time. Continue amiodarone and contin ue telemetry monitoring. In a few weeks/months, when patient will be deemed to be good candidate for oral anticoagulation from a neurological standpoint, we c an reassess his candidacy for the Watchman device. Staff name: Margot Bacon MD Date: 09/13/2019 History of Present Illness Estrada Godoy is a 84 y.o. male patient with history of basilar aneurysm and normal pressure hydrocephalus who follows with neurology here at . Other history includes coronary artery disease, hypertension, paroxysmal atrial fibril lation on chronic anticoagulation with warfarin. He has had a history of aortic aneurysm with endograft repair and chronic systolic heart failure with EF of ap proximately 45%. He presented to outside facility with mental status changes an d progressive lethargy and was found to have a left occipital intraparenchymal h emorrhage. INR at the time of his presentation was 2.7 which was reversed. He was transferred to for further care. Patient is alert and oriented however v jonas hard of hearing and therefore much of the history is obtained from the who is at the bedside. She denies any recent cardiac symptoms such as chest pain, palpitations, dizzine ss, lightheadedness, or near syncope. She denies recent progressive shortness o f breath, orthopnea, PND, or lower extremity edema. She states he was in his [facility] state of health prior to his initial presentation to the hospital. He follo ws with a bench assembler battery in the [place] area. Past Medical History Medical History: Diagnosis Date Coronary artery disease Hearing loss SYL on CPAP Social History Social History Socioeconomic History Marital status: Spouse name: Not on file Number of children: Not on file Years of education: Not on file Highest education level: Not on file Occupational History Not on file Tobacco Use Smoking status: Never Smoker Smokeless tobacco: Never Used Substance and Sexual Activity Alcohol use: Yes Alcohol/week: 20.0 standard drinks Types: 1 Cans of beer per week Drug use: No Sexual activity: Not on file Other Topics Concern Not on file Social History Narrative Not on file Surgical History Surgical History: Procedure Laterality Date INSERTION COCHLEAR DEVICE (CPT L8614) Right 02/24/2018 Performed by Yung Moreno MD at [facility] OR/Periop ADJACENT TISSUE TRANSFER PEDICLE FLAP (THINNING OF SCALP ABOVE MAGNET) Right 11/03/2018 Performed by Yung Moreno MD at [facility] OR/Periop CREATION SHUNT - VENTRICULO-PERITONEAL Right 03/29/2019 Performed by Ton Weber MD at [facility] OR/Periop CORONARY ANGIOPLASTY x5 HX HEART CATHETERIZATION x8 with stents Family History No family history on file. Medications amiodarone (CORDARONE) tablet 200 mg 200 mg Oral BID citalopram (CELEXA) tablet 40 mg 40 mg Oral QDAY docusate (COLACE) capsule 100 mg 100 mg Oral BID finasteride (PROSCAR) tablet 5 mg 5 mg Oral QDAY levETIRAcetam (KEPPRA) 500 mg/NS 100 mL IVPB (premade) 500 mg Intravenous BID losartan (COZAAR) tablet 50 mg 50 mg Oral QDAY milk of magnesia (CONC) oral suspension 10 mL 10 mL Oral QDAY pantoprazole DR (PROTONIX) tablet 40 mg 40 mg Oral QDAY rOPINIRole (REQUIP) tablet 0.25 mg 0.25 mg Oral QHS senna/docusate (SENOKOT-S) tablet 1 tablet 1 tablet Oral BID spironolactone (ALDACTONE) tablet 25 mg 25 mg Oral QDAY tamsulosin (FLOMAX) capsule 0.4 mg 0.4 mg Oral QDAY hydrALAZINE Q6H PRN, HYDROcodone/acetaminophen Q4H PRN, labetalol (NORMODYNE; TR ANDATE) injection Q15 MIN PRN, ondansetron (ZOFRAN) IV Q6H PRN Allergies Allergies Allergen Reactions Contrast Dye Iv, Iodine Containing [Iodinated Contrast Media] ITCHING Review of Systems General: c/o fatigue Eyes: negative/normal. Ears/Nose/Throat: negative/normal. Cardiovascular: denies chest pain or palpitations, dizziness or lightheadedness Respiratory: denies SOB, orthopnea or PND Gastrointestinal: denies melena or hematochezia Genitourinary: denies hematuria Musculoskeletal: negative/normal. Skin: negative/normal. Neurologic: negative/normal. Psychiatric: negative/normal. Endocrine: negative/normal. Heme/Lymphatic: negative/normal. Allergic/Immunologic: negative/normal. Vital Signs: Most Recent Vital Signs: 24 Ho ur Range BP: 104/73 (09/13 1100) Temp: 37.6 C (99.7 F) (09/13 1200) Pulse: 59 (09/13 1100) Respirations: 12 PER MINUTE (09/13 1100) SpO2: 96 % (09/13 1100) SpO2 Pulse: 55 (09/13 1100) Height: 182.9 cm (6') (09/12 2310) BP: (104-139)/(70-95) Temp: [36.6 C (97.9 F)-37.6 C (99.7 F)] Pulse: [59-71] Respirations: [11 PER MINUTE-24 PER MINUTE] SpO2: [90 %-98 %] Vitals: 09/12/192309 Weight: 96.1 kg (211 lb 13.8 oz) Intake/Output Summary (Last 24 hours) at 09/13/2019 1200 Last data filed at 09/13/2019 1200 Gross per 24 hour Intake 1200 ml Output 830 ml Net 370 ml Physical Exam General Appearance: moderately overweight, no distress Skin: warm, no ulcers or xanthomas Lips & Oral Mucosa: no pallor or cyanosis Neck Veins: normal JVP, neck veins are not distended Chest Inspection: chest is normal in appearance Respiratory Effort: breathing comfortably, no respiratory distress Auscultation/Percussion: lungs clear to auscultation, no rales or rhonchi, no wh eezing Cardiac Rhythm: regular rhythm and normal rate Cardiac Auscultation: S1, S2 normal, no rub, no gallop Murmurs: soft systolic murmur Peripheral Circulation: normal peripheral circulation Pedal Pulses: normal symmetric pedal pulses Lower Extremity Edema: no lower extremity edema Abdominal Exam: mildly protuberant but soft, non-tender, no masses, bowel sounds normal Orientation: oriented to time, place and person Affect & Mood: appropriate and sustained affect Language and Memory: patient responsive and seems to comprehend information Neurologic Exam: neurological assessment grossly intact Other: moves all extremities Labs Hematology: Lab Results Component Value Date HGB 9.8 09/13/2019 HCT 29.4 09/13/2019 PLTCT 229 09/13/2019 WBC 8.6 09/13/2019 NEUT 74 09/13/2019 ANC 6.20 09/13/2019 ALC 1.50 09/13/2019 KAT 8 09/13/2019 AMC 0.70 09/13/2019 ABC 0.10 09/13/2019 MCV 83.4 09/13/2019 MCHC 33.2 09/13/2019 MPV 7.7 09/13/2019 RDW 17.4 09/13/2019 , Coagulation: Lab Results Component Value Date PTT 28.2 09/12/2019 INR 1.3 09/12/2019 , General Chemistry: Lab Results Component Value Date NA 133 09/13/2019 K 4.5 09/13/2019 CL 102 09/13/2019 GAP 9 09/13/2019 BUN 18 09/13/2019 CR 1.34 09/13/2019 GLU 100 09/13/2019 CA 8.3 09/13/2019 ALBUMIN 3.7 09/12/2019 OBSCA 1.08 09/13/2019 MG 1.8 09/13/2019 TOTBILI 1.4 09/12/2019 , Enzymes: Lab Results Component Value Date AST 40 09/12/2019 ALT 44 09/12/2019 ALKPHOS 93 09/12/2019 , Cardiac markers: No results found for: TNI, CKMB, MYOGLB, Endocrine: No resul ts found for: DOLORES, FREET4, TSH and Lipid Profile: No results found for: CHOL, T RIG, HDL, LDL, VLDL ECG ECG Sinus rhythm, LBBB Telemetry SR with LBBB, occ PVC's Echo: 03/2019 1. Normal LV size with concentric remodeling and mildly reduced systolic functio n, EF ~ 45% 2. Regional wall motion abnormalities as diagrammed below 3. Grade I (mild) left ventricle diastolic dysfunction. 4. Normal RV size with mildly reduced systolic function 5. Normal size atria bilaterally 6. Aortic sclerosis without stenosis. Mild to moderate regurgitation (likely se condary to below) 7. Moderate enlargement of the aortic root, ascending aorta, and aortic arch 8. Estimated peak systolic PA pressure = 21 mmHg 9. No pericardial effusion Alice Askew APRN (pager [phone]) ASSEMBLER * Crystal Lambert, ORACLE OBIEE DEVELOPER-TRIAL EXAMINER - 09/12/2019 11:30 PM PUMP ASSEMBLER Associated Order(s): CONSULT NEURO CRITICAL CARE PHYSICIAN Neuro Critical Care Consult Estrada Godoy Admission Date: 09/12/2019 LOS: 1 day Full Code ASSESSMENT/PLAN Patient Active Problem List Diagnosis Date Noted Intraparenchymal hematoma of brain (HCC) 09/13/2019 Ruptured cerebral aneurysm (HCC) 09/12/2019 Giant intracranial aneurysm 03/29/2019 Aneurysm (HCC) 03/27/2019 NPH (normal pressure hydrocephalus) ([facility]) 03/27/2019 Disorder of scalp 11/03/2018 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 with a PMH significant for NPH - SWEATBAND MAKER shunt, atr ial fibrillation on coumadin, CAD s/p CABG and a known basilar artery aneurysm w ho presented to an OSH ED with a 2 day history of confusion. CT Left Occipital I PH and Left Posterior Flax SDH. Transferred to [facility] for further care and NSG ev aluation. Hospital and ICU course: 09/12: Admitted to NEICU. Neuro: Left Occipital IPH Left Posterior Flax SDH Dolichoectatic Basilar Anuerysm Normal Pressure Hydrocephalus with SWEATBAND MAKER Shunt Neuro Critical Care ICH Score GCS (3-4, or 5-12, or 13-15): 0 Age ? 82: 1 ICH volume ? 30 ml: No IVH present: No Infratentorial origin of hemorrhage: No Total score on admission: 1 - Warfarin FORESTRY BIOLOGY SPECIALIST > Reversed with 2400 units of K-Centra @ OSH > Hold FORESTRY BIOLOGY SPECIALIST Warfarin > Hold all AC - INR on admission: 1.3 > Maintain INR <1.4, Platelets >80k - Keppra 500mg BID - No acute neurosurgical intervention - No cognitive impairment suspected - Rehabilitation medicine consult - Neuro-ICU monitoring, neurochecks q 1 hrs) CTA: Unchanged left parieto-occipital parenchymal hemorrhage and mild subdural hemorrhage along the posterior falx and left tentorium. There is no midline shif t or descending herniation. No significant change in size of large basilar arter y aneurysm. Left frontal SWEATBAND MAKER Shunt remains in similar position. Sedation/Pain Management: Yes Depression - if yes: Hydrocodone - FORESTRY BIOLOGY SPECIALIST Celexa - Assess for delirium daily Cardiac: CAD Atrial Fibrilation - SBP goal: <140 - MAP goal > 65 - PRN Hydralazine, Labetalol - FORESTRY BIOLOGY SPECIALIST Amiodarone - FORESTRY BIOLOGY SPECIALIST Losartan - FORESTRY BIOLOGY SPECIALIST Aldactone - FORESTRY BIOLOGY SPECIALIST Lipitor Respiratory: SYL Seasonal Allergies - RT Eval and Treat > Home CPAP - FORESTRY BIOLOGY SPECIALIST Zyrtec - FORESTRY BIOLOGY SPECIALIST Flonase - PaO2 goal >100, Spo2 goal >95 GI: - Feeding: NPO - PRN Ondansatron - neurosurgery bowel regimen, ensure daily BM Heme: Hgb: 10.9 Hct: 33 Plt: 258 - Daily CBC - assess for coagulopathy, maintain platelets above 100k, INR <1.5 ID: WBC - Afebrile - Daily CBC - aim for normothermia, Temp <38.3 celsius, normothermia protocol if febrile Renal: BUN: 18 Creat: 1.40 NGOZI v CKD BPH - FEUrea Pending > BUN: 18 > Serum Creat: 1.4 > Urine Urea: > Urine Creat: 88 - Bladder scan protocol - FORESTRY BIOLOGY SPECIALIST Proscar - FORESTRY BIOLOGY SPECIALIST Flomax - Daily BMP - Aim for normovolemia Intake/Output Summary (Last 24 hours) at 09/13/2019 0318 Last data filed at 09/13/2019 0200 Gross per 24 hour Intake 150 ml Output 250 ml Net -100 ml Endocrine: SB - Monitor glucose on chemistry - Blood glucose goal 100-180mg/dl MSK Restless Leg Syndomre - FORESTRY BIOLOGY SPECIALIST Allopurinol - FORESTRY BIOLOGY SPECIALIST Requip FEN: - IVF: NS @ 75 mL - Magnesium goal >2.0, i-Siddhartha goal > 1.0, Potassium goal >4.0 mEq/L Prophylaxis Review: A)GI: No B) Lines: No C) Urinary Catheter: No D) Antibiotic Usage: No E) VTE: Pharmacological prophylaxis; Contraindication: Active bleeding; Cerebr al hemorrhage and Mechanical prophylaxis; Sequential compression device F) Isolation: No G)Seizures: Keppra I) Restraints: Patient assessed for need for restraints. Disposition/Family: ICU Primary service: IVY Consults: [facility] SUBJECTIVE Chief Complaint: Lethargy, Dizziness, Delirum History of Present Illness: Estrada Godoy is a 84 y.o. 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 Bailee vargas, who presented to an outside hospital for progressive lethargy, delirium, diz ziness and decreased fluid intake throughout the last 7 days and who also had a reported fever of up to 102.5. A head CT was obtained and revealed a left occipi dano IPH. He was reversed with K-Centra and transferred to [facility] for further care . Upon arrival to [facility] he is neuro intact and his and children are at beds yaneth. He denies vision changes, headache, dizziness, shortness of breath or chest pain. Medical History: Diagnosis Date Coronary artery disease Hearing loss SYL on CPAP Surgical History: Procedure Laterality Date INSERTION COCHLEAR DEVICE (CPT L8614) Right 02/24/2018 Performed by Yung Moreno MD at [facility] OR/Periop ADJACENT TISSUE TRANSFER PEDICLE FLAP (THINNING OF SCALP ABOVE MAGNET) Right 11/03/2018 Performed by Yung Moreno MD at [facility] OR/Periop CREATION SHUNT - VENTRICULO-PERITONEAL Right 03/29/2019 Performed by Ton Weber MD at [facility] OR/Periop CORONARY ANGIOPLASTY x5 HX HEART CATHETERIZATION x8 with stents Family history reviewed; non-contributory Social History Social History Narrative Not on file Code Status: Full Code Decision Maker: - Lindsay Immunizations (includes history and patient reported): There is no immunization history on file for this patient. Allergies: Contrast dye iv, iodine containing [iodinated contrast media] Medications Prior to Admission Medication Sig acetaminophen (TYLENOL) 500 mg tablet Take 1,000 mg by mouth every 6 hours a s needed for Pain. Max of 4,000 mg of acetaminophen in 24 hours. allopurinol (ZYLOPRIM) 100 mg tablet Take 100 mg by mouth daily. Take with f ood. amiodarone (CORDARONE) 200 mg tablet Take 200 mg by mouth twice daily. Take with food. atorvastatin (LIPITOR) 80 mg tablet Take 80 mg by mouth at bedtime daily. cetirizine (ZYRTEC) 10 mg tablet Take 10 mg by mouth every morning. cholecalciferol(+) (VITAMIN D-3) 5,000 unit tablet Take 5,000 Units by mouth twice daily. citalopram (CELEXA) 40 mg tablet Take 40 mg by mouth daily. finasteride (PROSCAR) 5 mg tablet Take 5 mg by mouth daily. fluticasone propionate (FLONASE) 50 mcg/actuation nasal spray Apply 1 spray to each nostril as directed daily. Shake bottle gently before using. losartan (COZAAR) 50 mg tablet Take 50 mg by mouth daily. multivitamin with minerals (MULTIVITAMIN & MINERAL FORMULA PO) Take 0.5 tablets by mouth at bedtime daily. pantoprazole DR (PROTONIX) 40 mg tablet Take 40 mg by mouth daily. rOPINIRole (REQUIP) 0.25 mg tablet Take 0.25 mg by mouth at bedtime daily. spironolactone (ALDACTONE) 25 mg tablet Take one tablet by mouth daily. Take with food. tamsulosin (FLOMAX) 0.4 mg capsule Take 0.4 mg by mouth daily. Do not crush, chew or open capsules. Take 30 minutes following the same meal each day. vitamins, B complex tab Take 1 tablet by mouth daily. warfarin sodium (WARFARIN PO) Take by mouth. Titrate to labs as per Cardiol ogist instructions. Review of Systems: All other systems reviewed and are negative. OBJECTIVE Vital Signs: Last Filed Vital Signs: 24 Hour Ra e BP: 127/87 (09/13 300) Temp: 37.2 C (99 F) (09/12 2310) Pulse: 61 (09/13 300) Respirations: 20 PER MINUTE (09/13 200) SpO2: 94 % (09/13 300) Height: 182.9 cm (72") (09/12 2310) Weight: 96.1 kg (211 lb 13.8 oz) (09/12 2310) BP: (127-137)/(72-91) Temp: [37.2 C (99 F)] Pulse: [60-71] Respirations: [14 PER MINUTE-24 PER MINUTE] SpO2: [93 %-96 %] Intensity Pain Scale (Self Report): (not recorded) Vitals: 09/12/19 2310 Weight: 96.1 kg (211 lb 13.8 oz) Lines: PIV Drains: None Intake/Output Summary: (Last 24 hours) Intake/Output Summary (Last 24 hours) at 09/13/2019 0318 Last data filed at 09/13/2019 0200 Gross per 24 hour Intake 150 ml Output 250 ml Net -100 ml Physical Exam: Blood pressure 127/87, pulse 61, temperature 37.2 C (99 F), height 182.9 cm (72"), weight 96.1 kg (211 lb 13.8 oz), SpO2 94 %. Corona coma score: E: 4 - Opens eyes on own M: 6 - Follows simple motor commands V: 5 - Alert and oriented Neuro: Mental Status: AOx4, Extremely [place] Cranial Nerves: Cranial nerves 2-12 INTACT by inspection. - Pupil exam: Size: 3 Reactivity: brisk - EOM: intact Motor: RUE: Strength: 5/5; follows commands RLE: Strength: 5/5; follows commands LUE: Strength: 5/5; follows commands LLE: Strength: 5/5; follows commands Sensory: normal Coordination: intact Lungs: clear to auscultation bilaterally Pulmonary: Airway status stable, on home CPAP Heart: S1/S1 noted on ascultation, regularly irregular rhythm Abdomen: soft, non-tender. Bowel sounds normal. No masses, no organomegaly Extremities: extremities normal, atraumatic, no cyanosis or edema Skin: Skin color, texture, turgor normal. No rashes or lesions Point of Care Testing: (Last 24 hours): Glucose: (!) 109 (09/12/192328) Lab Review: Pertinent labs reviewed Radiology and Other Diagnostic Procedures Review: Pertinent radiologic and diag nostic procedures reviewed. I spent 55 minutes managing the care of this patient. This patient is critically ill with an IPH and requires critical care monitoring. Cares included: detailed neurologic and systems exam, medication review, laboratory data review and inte rpretation, electrolyte management, review of available imaging, DVT/PE prophyla xis review, diet review, activity review and coordination of care with consulted teams. Crystal Lambert APRN-TRIAL EXAMINER Date: 09/13/[phone] ASSEMBLER documented in this encounter Miscellaneous Notes * Case Mgmt DC Plan - Kiley Girard - 09/18/2019 10:50 AM PUMP ASSEMBLER CATTLE BRANDER Note: Faxed discharge orders to [facility] per the request of REFUGIO cramer. Kiley Girard Human Resources Services Specialist For additional assistance, please contact [facility] Cher Price [phone] ASSEMBLER * Case Mgmt DC Plan - Cher Price - 09/17/2019 5:21 PM PUMP ASSEMBLER SW sent a referral to [facility], per family, they have been there in the past and would like to return. [facility] thought that they may not have a bed until Tuesday, but confirmed later in the day with SW that they have a bed tomorrow 09/18/19. informed [facility] that pt should be able to progress to rehab tomorrow, instead of Tuesday, and they were very happy with the news. -Cher Price, DISPLAY DEPARTMENT MANAGER *[phone] ASSEMBLER * Case Mgmt DC Plan - Lilly Drake RN - 09/17/2019 12:08 PM PUMP ASSEMBLER Case Management Admission Assessment NAME:Estrada Godoy : 1935 AGE: 84 y.o. ADMISSION DATE: 09/12/2019 DAYS ADMITTED: LOS: 5 days Todays Date: 09/17/2019 Source of Information: Spouse (Lindsay Godoy), Child (daughter Dori arrived toward end of assessment) and EMR Plan Plan: Case Management Assessment, Assist PRN with SW/NCM Services, Discharge Claudia nning for Facility Anticipated Patient was admitted from OSH with fever, lethargy, and new left occipital IPH a nd left posterior falx SDH - no surgical interventions during this stay. PMH inc ludes basilar aneurysm and NPH, with SWEATBAND MAKER shunt placement in March Most recent therapy recommendations: PT: Inpatient; Recommend rehab medicine consult OT: Inpatient; Recommend rehab medicine consult Rehab Medicine: Likely Acute IRF Per family wishes, Mr. Godoy was referred by MIRLANDE this AM to [facility]; [facility] updated family on this. They appreciate, and would love to di scharge to there today if [facility] is able to accept, and could provide trans portation. [facility] does not accept after 4pm, and family would have a 2h dri ve there - MIRLANDE aware. Neurosurgery CM team to continue to follow patient's plan of care via EMR and team huddle; will assist with discharge planning needs as indicated. Assessment Notes Mr. Godoy is lying in bed at time of [facility] assessment; alert, but very [place] - h is Lindsay is agreeable to completing assessment at this time. [facility] met with patient and his family, and provided contact information, explan ation of CM roles, and review of Preparing for Discharge, [facility] Preferred Provider Network handouts. They were encouraged to contact case manag ement with questions and concerns during hospitalization. Patient lives with his in a single-level home with 3 entry steps. Mr. Karol aldana is using a walker at baseline now, and requires standby assist for showe ring, assistance with [id number], and recently assistance with dressing. Home support is assessed to be consistent, 24/. Ms. Godoy provides 24/7 care and acknowledges this has been a lot for her lately. Following IPR stay after his March admission, patient was able to discharge to home without home health services. Patient's previous HH, LTACH, SNF, IPR, DME, outpatient therapy experience in cludes: IPR ([facility]) DME (shower chair, RW, SPC, grab bars, handrails in diaz, "tall toilet") Patient Address/Phone [address] [id number] (home) Emergency Contact Extended Emergency Contact Information Primary Emergency Contact: Lindsay Godoy [facility] Mobile Relation: Spouse Secondary Emergency Contact: Dori Can Mobile Relation: Daughter Preferred language: POLISH Avionics Safety Inspector needed? No Healthcare Directive Yes, on file - #1 DPOA is Lindsay (spouse); #2 DPOAs are Dori and Terri (daught ers) Transportation Does the patient need discharge transport arranged?: No Transportation Name, Phone and Availability #1: Lindsay Godoy (spouse), ph [phone], and Dori Can (daughter), p [phone] Does the patient use Medicaid Transportation?: No Expected Discharge Date Expected Discharge Date: 09/17/19 Expected Discharge Time: 1200 Expected discharge date pending patient's medical stability; medical [place] es: Acceptance by [facility]. Living Situation Prior to Admission ? Living Arrangements Type of Residence: Home, dependent on others Living Arrangements: Spouse/significant other Bathroom Shower / Tub: Walk-in Shower How many levels in the residence?: 1 Can patient live on one level if needed?: Yes Does residence have entry and/or side stairs?: Yes(3) Assistance needed prior to admit or anticipated on discharge: Yes Who provides assistance or could if needed?: Patient's Are they in good health?: Yes Can support system provide 24/7 care if needed?: Yes ? Level of Function Prior level of function: Needs assist with ADLs Which ADLs require assistance?: Standby assist while showering, health underwriter , meals, transportation. Lately has needed help with dressing, but this is newer . Who assists with ADLs?: Patient's ? Cognitive Abilities Cognitive Abilities: Continue to Assess(Very [place] - assisted with assessment ) Financial Resources ? Coverage Primary Insurance: Medicare Secondary Insurance: Medicare Supplement Additional Coverage: RX Payor: MEDICARE / Plan: MEDICARE PART A AND B / Product Type: Medicare / ? Source of Income Source Of Income: Other usp income ? Financial Assistance Needed? Patient is affording his medications/healthcare at this time. Psychosocial Needs ? Mental Health Mental Health History: No ? Substance Use History Denies substance use issues. Current/Previous Services ? PCP Lesley Butcher, , Patient is current with PCP; has been seen within the past week. ? Pharmacy [address] - [address] [facility] [address] ? Durable Medical Equipment Durable Medical Equipment at home: Roller Walker, Grab bars, Single Point Cane, Shower Chair, Other (comment)(Handrails in diaz, "tall" toilet) ? Home Health Receiving home health: No(Discharged from [facility] after March admission without need for HH) ? Hemodialysis or Peritoneal Dialysis Undergoing hemodialysis or peritoneal dialysis: No ? Tube/Enteral Feeds Receive tube/enteral feeds: No ? Infusion Receive infusions: No ? Private Duty Private duty help used: No ? Home and Community Based Services Home and community based services: No ? Jovany Dexter: N/A ? Hospice Hospice: No ? Outpatient Therapy PT: No OT: No SWITCHBOARD INSPECTOR: No ? Longterm Facility/Group Home SNF: No NH: No ? Inpatient Rehab IPR: In the past When did patient receive care?: Following March, admission Name of Facility: [facility] Would patient return for future services?: Yes(Referral sent this AM) ? [facility]-Term Acute Care Hospital LTACH: No ? Acute Hospital Stay Acute Hospital Stay: In the past Was patient's stay within the last 30 days?: No Lilly FUENTES, RN, ACM-RN Neurosurgery Nurse Certified Master Safecracker ASSEMBLER * Case Mgmt DC Plan - Yani Garrison - 09/17/2019 9:54 AM PUMP ASSEMBLER CATTLE BRANDER note: HERRICK [facility] requesting referral for IPR admission to the following facility. [facility]. Referral placed, follow up pending. Yani Garrison Certified Master Safecracker Body Finisher ASSEMBLER * Care Plan - Abdi Conley RN - 09/14/2019 10:39 PM PUMP ASSEMBLER Problem: Discharge Planning Goal: Participation in plan of care Outcome: Goal Ongoing Goal: Knowledge regarding plan of care Outcome: Goal Ongoing Goal: Prepared for discharge Outcome: Goal Ongoing Problem: Respiratory Impairment (Non-Ventilated Patient) Goal: Effective gas exchange Outcome: Goal Ongoing Goal: Patent airway Outcome: Goal Ongoing Problem: Neurological Status, Impaired/Altered Goal: Progress toward maximizing functional outcomes Outcome: Goal Ongoing Goal: Cognitive status restored to baseline Outcome: Goal Ongoing Problem: Falls, High Risk of Goal: Absence of falls-Adult Patient Outcome: Goal Ongoing Problem: Mobility/Activity Intolerance Goal: Maximize functional ADL's and mobility outcomes Outcome: Goal Ongoing ASSEMBLER documented in this encounter Plan of Treatment Order Schedule Name Type Priority Associated Diag noses ONE TIME for 1 Occurrences starting 08/18 until 09/13/2019, 1 completed GENERAL RAD CHEST Imaging Routine Diagnosis un known EXTERNAL IMAGING ONE TIME for 1 Occurrences starting 08/18 until 09/13/2019, [address] HEAD EXTERNAL IMAGING Imaging Routine Diagn osis unknown ONE TIME for 1 Occurrences starting 08/18 until 09/13/2019 ECG 12-LEAD ECG Routine Expected: 09/28/2019, Expires: 0 TRANSESOPHAGEAL ECHO Routine NPH (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 GOAL General Yes Robert Freeman, RN Note: To get better documented as of this encounter Procedures Comments Procedure Name Priority Date/Time Associated Diag nosis HC CBC W/ AUTOMATED DIFF Routine 09/17/2019 4:17 AM PUMP ASSEMBLER HC PHOSPHOROUS, SERUM Routine 09/17/2019 4:17 AM PUMP ASSEMBLER HC MAGNESIUM Routine 09/17/2019 4:17 AM PUMP ASSEMBLER HC CALCIUM IONIZED Routine 09/17/2019 4:17 AM PUMP ASSEMBLER HC BASIC METABOLIC PANEL Routine 09/17/2019 4:17 AM PUMP ASSEMBLER HC CBC W/ AUTOMATED DIFF Routine 09/16/2019 4:47 AM PUMP ASSEMBLER HC PHOSPHOROUS, SERUM Routine 09/16/2019 4:47 AM PUMP ASSEMBLER HC MAGNESIUM Routine 09/16/2019 4:47 AM PUMP ASSEMBLER HC CALCIUM IONIZED Routine 09/16/2019 4:47 AM PUMP ASSEMBLER HC BASIC METABOLIC PANEL Routine 09/16/2019 4:47 AM PUMP ASSEMBLER HC PT(INR) Routine 09/15/2019 8:17 AM PUMP ASSEMBLER HC CBC W/ AUTOMATED DIFF Routine 09/15/2019 4:15 AM PUMP ASSEMBLER HC PHOSPHOROUS, SERUM Routine 09/15/2019 4:15 AM PUMP ASSEMBLER HC MAGNESIUM Routine 09/15/2019 4:15 AM PUMP ASSEMBLER HC CALCIUM IONIZED Routine 09/15/2019 4:15 AM PUMP ASSEMBLER HC BASIC METABOLIC PANEL Routine 09/15/2019 4:15 AM PUMP ASSEMBLER HC CBC W/ AUTOMATED DIFF Routine 09/14/2019 3:00 AM PUMP ASSEMBLER HC PHOSPHOROUS, SERUM Routine 09/14/2019 3:00 AM PUMP ASSEMBLER HC MAGNESIUM Routine 09/14/2019 3:00 AM PUMP ASSEMBLER HC CALCIUM IONIZED Routine 09/14/2019 3:00 AM PUMP ASSEMBLER HC BASIC METABOLIC PANEL Routine 09/14/2019 3:00 AM PUMP ASSEMBLER HC CBC W/ AUTOMATED DIFF Routine 09/13/2019 4:18 AM PUMP ASSEMBLER HC PHOSPHOROUS, SERUM Routine 09/13/2019 4:18 AM PUMP ASSEMBLER HC MAGNESIUM Routine 09/13/2019 4:18 AM PUMP ASSEMBLER HC CALCIUM IONIZED Routine 09/13/2019 4:18 AM PUMP ASSEMBLER HC BASIC METABOLIC PANEL Routine 09/13/2019 4:18 AM PUMP ASSEMBLER HC UREA NITROGEN-URINE Add on 09/13/2019 2:00 AM PUMP ASSEMBLER HC SODIUM-URINE Routine 09/13/2019 2:00 AM PUMP ASSEMBLER HC CREATININE-URINE Routine 09/13/2019 2:00 AM PUMP ASSEMBLER CTA HEAD WO/W CONTR+POST STAT 09/12/2019 PRO 11:[address] HEAD EXTERNAL IMAGING Routine 09/12/2019 Diagn osis unknown 11:56 PM PUMP ASSEMBLER GENERAL RAD CHEST Routine 09/12/2019 Diagnosis un known EXTERNAL IMAGING 11:55 PM PUMP ASSEMBLER HC PTT(APTT) STAT 09/12/2019 11:29 PM PUMP ASSEMBLER HC PT(INR) STAT 09/12/2019 11:29 PM PUMP ASSEMBLER HC CBC W/ AUTOMATED DIFF STAT 09/12/2019 11:29 PM PUMP ASSEMBLER HC PHOSPHOROUS, SERUM STAT 09/12/2019 11:29 PM PUMP ASSEMBLER HC MAGNESIUM STAT 09/12/2019 11:29 PM PUMP ASSEMBLER HC COMPREHENSIVE STAT 09/12/2019 METABOLIC PANEL 11:29 PM PUMP ASSEMBLER ECG 12-LEAD Routine 09/12/2019 11:04 PM PUMP ASSEMBLER TELEMETRY STRIPS-SCAN 09/12/2019 12:00 AM PUMP ASSEMBLER ECG-SCAN 09/12/2019 12:00 AM PUMP ASSEMBLER documented in this encounter Results * IONIZED CALCIUM (09/17/2019 4:17 AM PUMP ASSEMBLER) Ionized Calcium 1.06 1.0 - 1.3 MMOL/L [facility] Specimen Blood Performing Organization Address [facility] one Number MAIN LAB [address] [place] [address] * PHOSPHORUS (09/17/2019 4:17 AM PUMP ASSEMBLER) Phosphorus 3.1Comment: NOTE NEW REFERENCE 2.0 - 4.5 MG/DL [facility] MAIN LAB RANGES Specimen Blood Performing Organization Address [facility] one Number MAIN LAB [address] [place] [address] * MAGNESIUM (09/17/2019 4:17 AM PUMP ASSEMBLER) Magnesium 2.0 1.6 - 2.6 mg/dL [facility]IN [facility] Specimen Blood Performing Organization Address [facility] one Number [facility] MAIN [facility] [address] [place] [address] * BASIC METABOLIC PANEL (09/17/2019 4:17 AM PUMP ASSEMBLER) Pathologist [facility] Sodium 134 (L) 137 - 147 MMOL/L [facility] Potassium 4.3 3.5 - 5.1 MMOL/L [facility] Chloride 101 98 - 110 MMOL/L [facility] CO2 23 21 - 30 MMOL/L [facility] Anion Gap 10 3 - 12 [facility] Glucose 99 70 - 100 MG/DL [facility] Blood Urea 22 7 - 25 MG/DL [facility] Nitrogen Creatinine 1.33 (H) 0.4 - 1.24 MG/DL [facility] Calcium 8.9 8.5 - 10.6 MG/DL [facility] eGFR Non 51 (L) >60 mL/min [facility] Comment: [place] The eGFR is not validated f or use in drug dosing adjustments. Continue to use estimated creatinine clearance per dosing reference text. Please contact the Clinical Pharmacist for questions. eGFR >60 >60 mL/min [facility] [place] Comment: The eGFR is not validated for use in drug dosing adjustments. Continue to use estimated creatinine clearance per dosing reference text. Please contact the Clinical Pharmacist for questions. Specimen Blood Performing Organization Address City/State/Zipcode Ph one Number [facility] MAIN LAB [address] [place] [address] * CBC AND DIFF (09/17/2019 4:17 AM PUMP ASSEMBLER) Pathologist [facility] White Blood 7.5 4.5 - 11.0 K/UL [facility] Cells RBC 3.79 (L) 4.4 - 5.5 M/UL [facility] Hemoglobin 10.6 (L) 13.5 - 16.5 GM/DL [facility] Hematocrit 31.5 (L) 40 - 50 % [facility] MCV 82.9 80 - 100 FL [facility] MCH 28.0 26 - 34 PG [facility] MCHC 33.7 32.0 - 36.0 G/DL [facility] RDW 17.5 (H) 11 - 15 % [facility] Platelet Count 217 150 - 400 K/UL [facility] MPV 7.9 7 - 11 FL [facility] Neutrophils 75 41 - 77 % [facility] Lymphocytes 15 (L) 24 - 44 % [facility] Monocytes 9 4 - 12 % [facility] Eosinophils 1 0 - 5 % [facility] Basophils 0 0 - 2 % [facility] Absolute 5.60 1.8 - 7.0 K/UL [facility] Neutrophil Count Absolute Lymph 1.10 1.0 - 4.8 K/UL [facility] Count Absolute 0.70 0 - 0.80 K/UL [facility] Monocyte Count Absolute 0.10 0 - 0.45 K/UL [facility] Eosinophil Count Absolute 0.00 0 - 0.20 K/UL [facility] Basophil Count Specimen Blood Performing Organization Address [facility] Ph one Number MAIN LAB [address] [place] [address] * IONIZED CALCIUM (09/16/2019 4:47 AM PUMP ASSEMBLER) Ionized Calcium 1.10 1.0 - 1.3 MMOL/L [facility] Specimen Blood Performing Organization Address [facility] one Number MAIN LAB [address] [place] [address] * PHOSPHORUS (09/16/2019 4:47 AM PUMP ASSEMBLER) Phosphorus 3.3Comment: NOTE NEW REFERENCE 2.0 - 4.5 MG/DL MAIN LAB RANGES Specimen Blood Performing Organization Address [facility] one Number MAIN LAB [address] [place] [address] * MAGNESIUM (09/16/2019 4:47 AM PUMP ASSEMBLER) Magnesium 1.8 1.6 - 2.6 mg/dL [facility] Specimen Blood Performing Organization Address [facility] one Number MAIN LAB [address] [place] [address] * BASIC METABOLIC PANEL (09/16/2019 4:47 AM PUMP ASSEMBLER) Sodium 133 (L) 137 - 147 MMOL/L [facility] Potassium 4.3 3.5 - 5.1 MMOL/L [facility] Chloride 102 98 - 110 MMOL/L [facility] CO2 21 21 - 30 MMOL/L [facility] Anion Gap 10 3 - 12 [facility] Glucose 104 (H) 70 - 100 MG/DL [facility] Blood Urea 20 7 - 25 MG/DL [facility] Nitrogen Creatinine 1.40 (H) 0.4 - 1.24 MG/DL [facility] Calcium 8.7 8.5 - 10.6 MG/DL [facility] eGFR Non 49 (L) >60 mL/min [facility] Comment: [place] The eGFR is not validated f or use in drug dosing adjustments. Continue to use estimated creatinine clearance per dosing reference text. Please contact the Clinical Pharmacist for questions. eGFR 59 (L) >60 mL/min [facility] [place] Comment: The eGFR is not validated for use in drug dosing adjustments. Continue to use estimated creatinine clearance per dosing reference text. Please contact the Clinical Pharmacist for questions. Specimen Blood Performing Organization Address [facility] Ph one Number [facility] MAIN [facility] [address] [place] [address] * CBC AND DIFF (09/16/2019 4:47 AM PUMP ASSEMBLER) White Blood 7.5 4.5 - 11.0 K/UL [facility] MAIN [facility] Cells RBC 3.82 (L) 4.4 - 5.5 M/UL [facility] Hemoglobin 10.5 (L) 13.5 - 16.5 GM/DL [facility] Hematocrit 31.8 (L) 40 - 50 % [facility] MCV 83.3 80 - 100 FL [facility] MCH 27.6 26 - 34 PG [facility] MCHC 33.2 32.0 - 36.0 G/DL [facility] RDW 17.4 (H) 11 - 15 % [facility] Platelet Count 217 150 - 400 K/UL [facility] MPV 7.5 7 - 11 FL [facility] Neutrophils 77 41 - 77 % [facility] Lymphocytes 13 (L) 24 - 44 % [facility] Monocytes 8 4 - 12 % [facility] Eosinophils 1 0 - 5 % [facility] Basophils 1 0 - 2 % [facility] Absolute 5.80 1.8 - 7.0 K/UL [facility] Neutrophil Count Absolute Lymph 1.00 1.0 - 4.8 K/UL [facility] Count Absolute 0.60 0 - 0.80 K/UL [facility] Monocyte Count Absolute 0.10 0 - 0.45 K/UL [facility] Eosinophil Count Absolute 0.10 0 - 0.20 K/UL [facility] Basophil Count Specimen Blood Performing Organization Address [facility] one Number [facility] MAIN [facility] [address] [place] [address] * PROTIME INR (PT) (09/15/2019 8:17 AM PUMP ASSEMBLER) INR 1.9 (H) 0.8 - 1.2 [facility] Specimen Blood Performing Organization Address [facility] one Number [facility] MAIN [facility] [address] [place] [address] * IONIZED CALCIUM (09/15/2019 4:15 AM PUMP ASSEMBLER) Ionized Calcium 1.15 1.0 - 1.3 MMOL/L [facility] Specimen Blood Performing Organization Address [facility] Ph one Number MAIN LAB [address] [place] [address] * PHOSPHORUS (09/15/2019 4:15 AM PUMP ASSEMBLER) Phosphorus 3.1Comment: NOTE NEW REFERENCE 2.0 - 4.5 MG/DL [facility] MAIN [facility] RANGES Specimen Blood Performing Organization Address [facility] one Number MAIN LAB [address] [place] [address] * MAGNESIUM (09/15/2019 4:15 AM PUMP ASSEMBLER) Magnesium 1.9 1.6 - 2.6 mg/dL MAIN LAB Specimen Blood Performing Organization Address [facility] one Number MAIN LAB [address] [place] [address] * BASIC METABOLIC PANEL (09/15/2019 4:15 AM PUMP ASSEMBLER) Sodium 135 (L) 137 - 147 MMOL/L [facility] Potassium 4.2 3.5 - 5.1 MMOL/L [facility] Chloride 102 98 - 110 MMOL/L [facility] CO2 25 21 - 30 MMOL/L [facility] Anion Gap 8 3 - 12 [facility] Glucose 95 70 - 100 MG/DL [facility] Blood Urea 19 7 - 25 MG/DL [facility] Nitrogen Creatinine 1.41 (H) 0.4 - 1.24 MG/DL [facility] Calcium 8.7 8.5 - 10.6 MG/DL [facility] eGFR Non 48 (L) >60 mL/min [facility] Comment: [place] The eGFR is not validated f or use in drug dosing adjustments. Continue to use estimated creatinine clearance per dosing reference text. Please contact the Clinical Pharmacist for questions. eGFR 58 (L) >60 mL/min [facility] [place] Comment: The eGFR is not validated for use in drug dosing adjustments. Continue to use estimated creatinine clearance per dosing reference text. Please contact the Clinical Pharmacist for questions. Specimen Blood Performing Organization Address [facility] Number [facility] [address] [place] [address] * CBC AND DIFF (09/15/2019 4:15 AM PUMP ASSEMBLER) White Blood 7.8 4.5 - 11.0 K/UL [facility] Cells RBC 3.69 (L) 4.4 - 5.5 M/UL [facility] Hemoglobin 10.3 (L) 13.5 - 16.5 GM/DL [facility] Hematocrit 31.3 (L) 40 - 50 % [facility] MCV 84.8 80 - 100 FL [facility] MCH 28.0 26 - 34 PG [facility] MCHC 33.0 32.0 - 36.0 G/DL [facility] RDW 17.4 (H) 11 - 15 % [facility] Platelet Count 205 150 - 400 K/UL [facility] MPV 7.8 7 - 11 FL [facility] Neutrophils 76 41 - 77 % [facility] Lymphocytes 14 (L) 24 - 44 % [facility] Monocytes 9 4 - 12 % [facility] Eosinophils 1 0 - 5 % [facility] Basophils 0 0 - 2 % [facility] Absolute 5.90 1.8 - 7.0 K/UL [facility] Neutrophil Count Absolute Lymph 1.10 1.0 - 4.8 K/UL [facility] Count Absolute 0.70 0 - 0.80 K/UL [facility] Monocyte Count Absolute 0.00 0 - 0.45 K/UL [facility] Eosinophil Count Absolute 0.00 0 - 0.20 K/UL [facility] Basophil Count Specimen Blood Performing Organization Address [facility] one Number [facility] [address] [place] [phone] * IONIZED CALCIUM (09/14/2019 3:00 AM PUMP ASSEMBLER) Ionized Calcium 1.00 1.0 - 1.3 MMOL/L [facility] Specimen Blood Performing Organization Address [facility] one Number [facility] [address] [place] [phone] * PHOSPHORUS (09/14/2019 3:00 AM PUMP ASSEMBLER) Pathologist [facility] Phosphorus 3.5Comment: NOTE NEW REFERENCE 2.0 - 4.5 MG/DL [facility]IN [facility] RANGES Specimen Blood Performing Organization Address [facility] one Number MAIN LAB [address] [place] [address] * MAGNESIUM (09/14/2019 3:00 AM PUMP ASSEMBLER) [facility] Magnesium 2.1 1.6 - 2.6 mg/dL [facility] Specimen Blood Performing Organization Address [facility] one Number [facility] [address] [place] [address] * BASIC METABOLIC PANEL (09/14/2019 3:00 AM PUMP ASSEMBLER) [facility] Sodium 134 (L) 137 - 147 MMOL/L [facility] Potassium 4.0 3.5 - 5.1 MMOL/L [facility] Chloride 105 98 - 110 MMOL/L [facility] CO2 22 21 - 30 MMOL/L [facility] Anion Gap 7 3 - 12 [facility] Glucose 90 70 - 100 MG/DL [facility] Blood Urea 18 7 - 25 MG/DL [facility] Nitrogen Creatinine 1.37 (H) 0.4 - 1.24 MG/DL [facility] Calcium 8.1 (L) 8.5 - 10.6 MG/DL [facility] eGFR Non 50 (L) >60 mL/min [facility] Comment: [place] The eGFR is not validated f or use in drug dosing adjustments. Continue to use estimated creatinine clearance per dosing reference text. Please contact the Clinical Pharmacist for questions. eGFR >60 >60 mL/min [facility] [place] Comment: The eGFR is not validated for use in drug dosing adjustments. Continue to use estimated creatinine clearance per dosing reference text. Please contact the Clinical Pharmacist for questions. Specimen Blood Performing Organization Address [facility] one Number MAIN LAB [address] [place] [address] * CBC AND DIFF (09/14/2019 3:00 AM PUMP ASSEMBLER) [facility] White Blood 7.2 4.5 - 11.0 K/UL MAIN LAB Cells RBC 3.48 (L) 4.4 - 5.5 M/UL MAIN LAB Hemoglobin 9.6 (L) 13.5 - 16.5 GM/DL [facility] Hematocrit 29.2 (L) 40 - 50 % [facility] MCV 83.8 80 - 100 FL [facility] MCH 27.7 26 - 34 PG [facility] MCHC 33.0 32.0 - 36.0 G/DL [facility] RDW 16.8 (H) 11 - 15 % [facility] Platelet Count 199 150 - 400 K/UL [facility] MPV 7.5 7 - 11 FL [facility] Neutrophils 73 41 - 77 % [facility] Lymphocytes 17 (L) 24 - 44 % [facility] Monocytes 8 4 - 12 % [facility] Eosinophils 1 0 - 5 % [facility] Basophils 1 0 - 2 % [facility] Absolute 5.20 1.8 - 7.0 K/UL [facility] Neutrophil Count Absolute Lymph 1.20 1.0 - 4.8 K/UL [facility] Count Absolute 0.60 0 - 0.80 K/UL [facility] Monocyte Count Absolute 0.10 0 - 0.45 K/UL [facility] Eosinophil Count Absolute 0.00 0 - 0.20 K/UL [facility] Basophil Count Specimen Blood Performing Organization Address [facility] one Number MAIN LAB [address] [place] [address] * IONIZED CALCIUM (09/13/2019 4:18 AM PUMP ASSEMBLER) Ionized Calcium 1.08 1.0 - 1.3 MMOL/L [facility] Specimen Blood Performing Organization Address [facility] Ph one Number MAIN LAB [address] [place] [address] * PHOSPHORUS (09/13/2019 4:18 AM PUMP ASSEMBLER) Phosphorus 3.9Comment: NOTE NEW REFERENCE 2.0 - 4.5 MG/DL MAIN LAB RANGES Specimen Blood Performing Organization Address [facility] Ph one Number MAIN LAB [address] [place] [address] * MAGNESIUM (09/13/2019 4:18 AM PUMP ASSEMBLER) Magnesium 1.8 1.6 - 2.6 mg/dL [facility] Specimen Blood Performing Organization Address [facility] Ph one Number MAIN LAB [address] [place] [address] * BASIC METABOLIC PANEL (09/13/2019 4:18 AM PUMP ASSEMBLER) Pathologist [facility] Sodium 133 (L) 137 - 147 MMOL/L [facility] Potassium 4.5 3.5 - 5.1 MMOL/L [facility] Chloride 102 98 - 110 MMOL/L [facility] CO2 22 21 - 30 MMOL/L [facility] Anion Gap 9 3 - 12 [facility] Glucose 100 70 - 100 MG/DL [facility] Blood Urea 18 7 - 25 MG/DL [facility] Nitrogen Creatinine 1.34 (H) 0.4 - 1.24 MG/DL [facility] Calcium 8.3 (L) 8.5 - 10.6 MG/DL [facility] eGFR Non 51 (L) >60 mL/min [facility] Comment: [place] The eGFR is not validated f or use in drug dosing adjustments. Continue to use estimated creatinine clearance per dosing reference text. Please contact the Clinical Pharmacist for questions. eGFR >60 >60 mL/min [facility] [place] Comment: The eGFR is not validated for use in drug dosing adjustments. Continue to use estimated creatinine clearance per dosing reference text. Please contact the Clinical Pharmacist for questions. Specimen Blood Performing Organization Address City/State/Zipcode Ph one Number [facility] [address] [place] [address] * CBC AND DIFF (09/13/2019 4:18 AM PUMP ASSEMBLER) Pathologist [facility] White Blood 8.6 4.5 - 11.0 K/UL [facility] Cells RBC 3.53 (L) 4.4 - 5.5 M/UL [facility] Hemoglobin 9.8 (L) 13.5 - 16.5 GM/DL [facility] Hematocrit 29.4 (L) 40 - 50 % [facility] MCV 83.4 80 - 100 FL [facility] MCH 27.6 26 - 34 PG [facility] MCHC 33.2 32.0 - 36.0 G/DL [facility] RDW 17.4 (H) 11 - 15 % [facility] Platelet Count 229 150 - 400 K/UL [facility] MPV 7.7 7 - 11 FL [facility] Neutrophils 74 41 - 77 % [facility] Lymphocytes 17 (L) 24 - 44 % [facility] Monocytes 8 4 - 12 % [facility] Eosinophils 0 0 - 5 % [facility] Basophils 1 0 - 2 % [facility] Absolute 6.20 1.8 - 7.0 K/UL [facility] Neutrophil Count Absolute Lymph 1.50 1.0 - 4.8 K/UL [facility] Count Absolute 0.70 0 - 0.80 K/UL [facility] Monocyte Count Absolute 0.00 0 - 0.45 K/UL [facility] Eosinophil Count Absolute 0.10 0 - 0.20 K/UL [facility] Basophil Count Specimen Blood Performing Organization Address [facility] one Number [facility] [address] [place] [address] * UREA NITROGEN-URINE RANDOM (09/13/2019 2:00 AM PUMP ASSEMBLER) Urea Nitrogen 544 MG/DL [facility]IN [facility] Specimen Performing Organization [facility] one Number [facility] [address] [place] [address] * CREATININE-URINE RANDOM (09/13/2019 2:00 AM PUMP ASSEMBLER) Creatinine, 88 MG/DL [facility] Random Specimen Urine - Urine Performing Organization [facility] one Number [facility] [address] [place] [address] * SODIUM-URINE RANDOM (09/13/2019 2:00 AM PUMP ASSEMBLER) Sodium, Random 109 MMOL/L [facility] Specimen Urine - Urine Performing Organization Address [facility] one Number [facility] [address] [place] [address] * CTA HEAD WO/W CONTR+POST PRO (09/12/2019 11:58 PM PUMP ASSEMBLER) Specimen Impressions Performed At 1. Unchanged left parieto-occipital parenchymal hem orrhage and mild subdural [facility] RAD RESULTS hemorrhage along the posterior falx and left tentorium. There is no midline shift or descending herniation. 2. 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 Decreased intensity of opacification of the aneur ysm, distal basal artery, and posterior circulation is likely secondary to cont rast timing. There is no definite filling defect to suggest thrombus in the basil ar artery are proximal posterior cerebral arteries. 3. 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 4. 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 No ventriculomegaly currently, resolved si nce March 2019. By my electronic signature, I attest th at I have personally reviewed the images for this examination and formulated the interpretations and opinions expressed in this report Finalized by Abdi Martinez M.D. on 09/13/2019 12:50 AM. Dictated by Rashawn Villalpando M.D. on 09/13/2019 12:00 AM. Narrative Performed At EXAM: CTA HEAD [facility] RES[facility] HISTORY: Male, 84 years old, known dolichoectati c basilar aneurysm, new IPH TECHNIQUE: Multiple contiguous axial im ages were obtained of the brain before and following the administration of IV contrast. CTA maximum density projection images were obtained of the brain with image post processing. Comparison: CT head 09/12/2019 (externa l imaging); MRI/MRA head 04/03/2019; CTA head 03/22/2019 (external imaging) FINDINGS: No significant change in parenchymal he morrhage within the left parieto-occipital lobe measuring up to 4.2 cm (series 303, image 20), previously measuring up to 4.3 cm, with similar mi ld surrounding low-density edema. No significant change in mild subdural hem orrhage along the posterior falx and left tentorium. Blood products along the pos terior falx measure up to 0.7 cm (series 303, image 47) previously up to 0.7 cm. Mild sulcal effacement along the high left medial parietal lobe. Indwelling left frontal approach [employer] duane nt catheter remains in similar position within the left lateral ventricle with tip near the foramen of Katz. Left parieto-occipital intracranial hemorrha ge results in effacement of the left occipital horn. There is no definite in traventricular hemorrhage, though a small amount of the posterior left lateral ve ntricle, cannot be excluded. There is no midline shift. The basal cisterns are p atent. Mild generalized cerebral volume loss w ith likely overall concordant dilatation of the subarachnoid spaces. Previous hy drocephalus from March 2019 has resolved. The negro white matter interfaces are ot herwise maintained. 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 No acute calv arial fracture. Mild atherosclerotic calcification of t he upper cervical and intracranial internal carotid arteries without moder ate or high-grade stenosis. Widely patent bilateral anterior and middle cerebral arteries. Moderate calcification of the bilateral intracranial vertebral arteri es is again noted. No significant change in size of large basilar artery aneurysm, measuring up to 3.8 x 2.5 cm (series 3, image 83), prev iously measuring up to 3.7 x 2.5 cm. Heterogeneous contrast filling within t he basilar artery aneurysm is noted without definite filling defect to sugg est mural thrombus. There is decreased intensity of contrast opacification of the distal basilar and bilateral posterior cerebral arteries which may b e secondary to contrast timing/delayed filling secondary to contrast and blood swirling in the aneurysm. However, the posterior cerebral arteries appear adkins nt to at least the proximal P4 segments bilaterally. The basilar artery above t he aneurysm is diffusely ectatic, though unchanged since prior exam from March 22, 2019. Unchanged posterior displacement of the brainstem with effacement of the cerebral aqueduct. Procedure Note Interface, Radiant Results - 09/13/2019 12:53 AM PUMP ASSEMBLER EXAM: CTA HEAD HISTORY: Male, 84 years old, known dolichoectatic basilar aneurysm, new IPH TECHNIQUE: Multiple contiguous axial images were obtained of the brain before and following the administration of IV contrast. CTA maximum density projection images were obtained of the brain with image post processing. Comparison: CT head 09/12/2019 (external imaging); MRI/MRA head 04/03/2019; CTA head 03/22/2019 (external imaging) FINDINGS: No significant change in parenchymal hemorrhage within the left parieto- occipital lobe measuring up to 4.2 cm (series 303, image 20), previously measuring up to 4.3 cm, with similar mild surrounding low-density edema. No significant change in mild subdural hemorrhage along the posterior falx and left tentorium. Blood products along the posterior falx measure up to 0.7 cm (series 303, image 47) previously up to 0.7 cm. Mild sulcal effacement along the high left medial parietal lobe. Indwelling left frontal approach SWE[employer] MA[employer] shunt catheter remains in similar position within the left lateral ventricle with tip near the foramen of Katz. Left parieto-occipital intracranial hemorrhage results in effacement of the left occipital horn. There is no definite intraventricular hemorrhage, though a small amount of the posterior left lateral ventricle, cannot be excluded. There is no midline shift. The basal cisterns are patent. Mild generalized cerebral volume loss with likely overall concordant dilatation of the subarachnoid spaces. Previous hydrocephalus from March 2019 has resolved. The negro white matter interfaces are otherwise maintained. 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 No acute calvarial fracture. Mild atherosclerotic calcification of the upper cervical and intracranial internal carotid arteries without moderate or high-grade stenosis. Widely patent bilateral anterior and middle cerebral arteries. Moderate calcification of the bilateral intracranial vertebral arteries is again noted. No significant change in size of large basilar artery aneurysm, measuring up to 3.8 x 2.5 cm (series 3, image 83), previously measuring up to 3.7 x 2.5 cm. Heterogeneous contrast filling within the basilar artery aneurysm is noted without definite filling defect to suggest mural thrombus. There is decreased intensity of contrast opacification of the distal basilar and bilateral posterior cerebral arteries which may be secondary to contrast timing/delayed filling secondary to contrast and blood swirling in the aneurysm. However, the posterior cerebral arteries appear patent to at least the proximal P4 segments bilaterally. The basilar artery above the aneurysm is diffusely ectatic, though unchanged since prior exam from March 22, 2019. Unchanged posterior displacement of the brainstem with effacement of the cerebral aqueduct. IMPRESSION 1. Unchanged left parieto-occipital par enchymal hemorrhage and mild subdural hemorrhage along the posterior falx and left tentorium. There is no midline shift or descending herniation. 2. 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 Decreased intensity of opacification of the aneurysm, distal basal artery, and posterior circulation is likely secondary to contrast timing. There is no definite filling defect to suggest thrombus in the basilar artery are proximal posterior cerebral arteries. 3. 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 4. Indwelling left frontal approach SWE[employer] shunt remains in similar position. No ventriculomegaly currently, resolved since March 2019. By my electronic signature, I attest that I have personally reviewed the images for this examination and formulated the interpretations and opinions expressed in this report Finalized by Abdi Martinez M.D. on 09/13/2019 12:50 AM. Dictated by Rashawn Villalpando M.D. on 09/13/2019 12:00 AM. Performing Organization Address City/State/Zipcode Ph one Number [facility] RAD RESULTS * CT HEAD EXTERNAL IMAGING (09/12/2019 11:56 PM PUMP ASSEMBLER) Specimen Narrative Performed At This order has been auto finalized and does not contain a result. * GENERAL RAD CHEST EXTERNAL IMAGING (09/12/2019 11:55 PM PUMP ASSEMBLER) Specimen Narrative Performed At This order has been auto finalized and does not contain a result. * PHOSPHORUS (09/12/2019 11:29 PM PUMP ASSEMBLER) Pathologist [facility] Phosphorus 3.1Comment: NOTE NEW REFERENCE 2.0 - 4.5 MG/DL [facility] RANGES Specimen Blood Performing Organization Address [facility] Ph one Number [facility] [address] [place] [address] * MAGNESIUM (09/12/2019 11:29 PM PUMP ASSEMBLER) Pathologist [facility] Magnesium 1.7 1.6 - 2.6 mg/dL [facility] Specimen Blood Performing Organization Address [facility] Ph one Number [facility] [address] [place] [address] * COMPREHENSIVE METABOLIC PANEL (09/12/2019 11:29 PM PUMP ASSEMBLER) Sodium 134 (L) 137 - 147 MMOL/L [facility] Potassium 4.0 3.5 - 5.1 MMOL/L [facility] Chloride 102 98 - 110 MMOL/L [facility] Glucose 109 (H) 70 - 100 MG/DL [facility] Blood Urea 18 7 - 25 MG/DL [facility] Nitrogen Creatinine 1.40 (H) 0.4 - 1.24 MG/DL [facility] Calcium 8.5 8.5 - 10.6 MG/DL [facility] Total Protein 6.7 6.0 - 8.0 G/DL [facility] Total Bilirubin 1.4 (H) 0.3 - 1.2 MG/DL [facility] Albumin 3.7 3.5 - 5.0 G/DL [facility] Alk Phosphatase 93 25 - 110 U/L [facility] AST (SGOT) 40 7 - 40 U/L [facility] CO2 23 21 - 30 MMOL/L [facility] ALT (SGPT) 44 7 - 56 U/L [facility] Anion Gap 9 3 - 12 [facility] eGFR Non 49 (L) >60 mL/min [facility] Comment: [place] The eGFR is not validated f or use in drug dosing adjustments. Continue to use estimated creatinine clearance per dosing reference text. Please contact the Clinical Pharmacist for questions. eGFR 59 (L) >60 mL/min [facility] [place] Comment: The eGFR is not validated for use in drug dosing adjustments. Continue to use estimated creatinine clearance per dosing reference text. Please contact the Clinical Pharmacist for questions. Specimen Blood Performing Organization Address [facility] Ph one Number [facility] [address] [place] [address] * PTT (APTT) (09/12/2019 11:29 PM PUMP ASSEMBLER) APTT 28.2 24.0 - 36.5 SEC [facility] Specimen Blood Performing Organization Address [facility] one Number [facility] [address] [place] [address] * PROTIME INR (PT) (09/12/2019 11:29 PM PUMP ASSEMBLER) INR 1.3 (H) 0.8 - 1.2 [facility] Specimen Blood Performing Organization Address [facility] one Number [facility] [address] [place] [address] * CBC AND DIFF (09/12/2019 11:29 PM PUMP ASSEMBLER) White Blood 8.7 4.5 - 11.0 K/UL [facility] Cells RBC 3.96 (L) 4.4 - 5.5 M/UL [facility] Hemoglobin 10.9 (L) 13.5 - 16.5 GM/DL [facility] Hematocrit 33.0 (L) 40 - 50 % [facility] MCV 83.3 80 - 100 FL [facility] MCH 27.6 26 - 34 PG [facility] MCHC 33.1 32.0 - 36.0 G/DL [facility] RDW 17.1 (H) 11 - 15 % [facility] Platelet Count 258 150 - 400 K/UL [facility] MPV 7.4 7 - 11 FL [facility] Neutrophils 76 41 - 77 % [facility] Lymphocytes 15 (L) 24 - 44 % [facility] Monocytes 8 4 - 12 % [facility] Eosinophils 0 0 - 5 % [facility] Basophils 1 0 - 2 % [facility] Absolute 6.70 1.8 - 7.0 K/UL [facility] Neutrophil Count Absolute Lymph 1.30 1.0 - 4.8 K/UL [facility] Count Absolute 0.70 0 - 0.80 K/UL [facility] Monocyte Count Absolute 0.00 0 - 0.45 K/UL [facility] Eosinophil Count Absolute 0.10 0 - 0.20 K/UL [facility] Basophil Count Specimen Blood Performing Organization Address City/State/Zipcode Ph one Number MAIN LAB [address] [place] [address] * TELEMETRY STRIPS-SCAN (09/12/2019 12:00 AM PUMP ASSEMBLER) Narrative Performed At This result has an attachment that is n ot available. Ordered by an unspecified provider. * ECG-SCAN (09/12/2019 12:00 AM PUMP ASSEMBLER) Narrative Performed At This result has an attachment that is n ot available. Ordered by an unspecified provider. 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 documented in this encounter Admitting Diagnoses Diagnosis Ruptured cerebral aneurysm (HCC) Subarachnoid hemorrhage documented in this encounter Administered Medications Action Date Dose Rate Site Medication Order MAR Action 09/18/2019 9:14 AM PUMP ASSEMBLER 200 mg amiodarone (CORDARONE) tablet 200 mg Given 200 mg, Oral, TWICE DAILY, First dose o n 09/12/19 at 2345, Until Discontinue d 200 mg Given 09/17/2019 9:53 PM PUMP ASSEMBLER 200 mg Given 09/17/2019 9:04 AM PUMP ASSEMBLER 09/18/2019 9:14 AM PUMP ASSEMBLER 325 mg aspirin tablet 325 mg Given 325 mg, Oral, DAILY, First dose on Tue09/16/19 at 0915, Until Discontinued 325 mg Given 09/17/2019 9:04 AM PUMP ASSEMBLER 325 mg Given 09/16/2019 9:29 AM PUMP ASSEMBLER 09/17/2019 9:52 PM PUMP ASSEMBLER 40 mg atorvastatin (LIPITOR) tablet 40 mg Given 40 mg, Oral, AT BEDTIME DAILY, First dose (after last modification) on Tue09/14/19 at 2100, Until Discontinued 40 mg Given 09/16/2019 11:07 PM PUMP ASSEMBLER 40 mg Given 09/15/2019 9:58 PM PUMP ASSEMBLER 09/13/2019 8:04 PM PUMP ASSEMBLER 80 mg atorvastatin (LIPITOR) tablet 80 mg Given 80 mg, Oral, AT BEDTIME DAILY, First dose on Tue09/13/19 at 2100, Until Discontinued 09/18/2019 9:14 AM PUMP ASSEMBLER 20 mg citalopram (CELEXA) tablet 20 mg Given 20 mg, Oral, DAILY, First dose (after last modification) on Tue09/14/19 at 0900, Until Discontinued 20 mg Given 09/17/2019 9:04 AM PUMP ASSEMBLER 20 mg Given 09/16/2019 9:26 AM PUMP ASSEMBLER 09/13/2019 8:08 AM PUMP ASSEMBLER 40 mg citalopram (CELEXA) tablet 40 mg Given 40 mg, Oral, DAILY, First dose on Tue09/13/19 at 0900, Until Discontinued 09/17/2019 9:04 AM PUMP ASSEMBLER 100 mg docusate (COLACE) capsule 100 mg Given 100 mg, Oral, TWICE DAILY, First dose o n Tue09/12/19 at 2345, Until Discontinued, Hold for loose stools, 100 mg Given 09/16/2019 11:07 PM PUMP ASSEMBLER 100 mg Given 09/16/2019 9:27 AM PUMP ASSEMBLER 09/18/2019 9:14 AM PUMP ASSEMBLER 5 mg finasteride (PROSCAR) tablet 5 mg Given 5 mg, Oral, DAILY, First dose on Tue09/13/19 at 0900, Until Discontinued, NOTE: If or wanting to become , do not handle broken tablets without gloves due to risk of defects., 5 mg Given 09/17/2019 9:03 AM PUMP ASSEMBLER 5 mg Given 09/16/2019 9:24 AM PUMP ASSEMBLER 09/18/2019 7:35 AM PUMP ASSEMBLER 5,000 Units Abdomen: LLQ heparin (porcine) PF syringe 5,000 Units Given 5,000 Units, Subcutaneous, EVERY 8 HOURS, First dose on Tue09/14/19 at 2200, Until Discontinued, NOTE: This is a HIGH ALERT Medication., 5,000 Units Abdomen:LLQ Given 09/17/2019 9:53 PM PUMP ASSEMBLER 5,000 Units Abdomen:LLQ Given 09/17/2019 2:50 PM PUMP ASSEMBLER 09/13/2019 12:15 AM PUMP ASSEMBLER 70 mL iohexol (OMNIPAQUE-350) 350 mg/mL Given injection 70 mL 70 mL, Intravenous, ONCE, 1 dose, [facility] 09/13/19 at 0015, NOTE: This is a HIGH ALERT Medication., 09/13/2019 8:06 AM PUMP ASSEMBLER 500 mg levETIRAcetam (KEPPRA) 500 mg/NS 100 mL Given - New IVPB (premade) Bag 500 mg, 100 mL, Administer over 15 Minutes, Intravenous, TWICE DAILY, Firs t dose on Tue09/13/19 at 0900, Until Discontinued 09/18/2019 9:14 AM PUMP ASSEMBLER 500 mg levETIRAcetam (KEPPRA) tablet 500 mg Given 500 mg, Oral, TWICE DAILY, First dose o n [facility] 09/13/19 at 2100, Until Discontinue d 500 mg Given 09/17/2019 9:53 PM PUMP ASSEMBLER 500 mg Given 09/17/2019 9:04 AM PUMP ASSEMBLER 09/18/2019 9:14 AM PUMP ASSEMBLER 50 mg losartan (COZAAR) tablet 50 mg Given 50 mg, Oral, DAILY, First dose on Tue09/13/19 at 0900, Until Discontinued 50 mg Given 09/17/2019 9:04 AM PUMP ASSEMBLER 50 mg Given 09/16/2019 9:25 AM PUMP ASSEMBLER 09/13/2019 10:00 AM PUMP ASSEMBLER 1 g 100 mL/hr magnesium sulfate 1 g/D5W 100 mL IVPB Given - New 1 g, Intravenous, 100 mL, Administer Bag over 1 Hours, EVERY 1 HOUR FOR 2 DOSES , 2 doses, First dose on Meeta 09/13/19 at 0800, Last dose on Tue09/13/19 at 0900 , Each 1gm delivers 8.1 mEq Magnesium., 1 g 100 mL/hr Given - New Bag 09/13/2019 8:06 AM PUMP ASSEMBLER 09/17/2019 9:04 AM PUMP ASSEMBLER 10 mL milk of magnesia (CONC) oral suspension Given 10 mL 10 mL, Oral, DAILY, First dose on Meeta 09/13/19 at 0900, Until Discontinued, May hold if BM within 24 hours of dose. 10 mL CONC = 30 mL MOM, 10 mL Given 09/16/2019 9:27 AM PUMP ASSEMBLER 10 mL Given 09/15/2019 9:34 AM PUMP ASSEMBLER 09/18/2019 9:14 AM PUMP ASSEMBLER [address] (PROTONIX) tablet 40 mg Given 40 mg, Oral, DAILY, First dose on [facility] 09/13/19 at 0900, Until Discontinued, D o not crush or chew tablet., 40 mg Given 09/17/2019 9:04 AM PUMP ASSEMBLER 40 mg Given 09/16/2019 9:25 AM PUMP ASSEMBLER 09/14/2019 3:25 PM PUMP ASSEMBLER 0.25 mg rOPINIRole (REQUIP) tablet 0.25 mg Given 0.25 mg, Oral, AT BEDTIME DAILY, First dose on Tue09/12/19 at 2345, Until Discontinued 0.25 mg Given 09/13/2019 8:04 PM PUMP ASSEMBLER 09/17/2019 9:52 PM PUMP ASSEMBLER 0.25 mg rOPINIRole (REQUIP) tablet 0.25 mg Given 0.25 mg, Oral, TWICE DAILY - SEE EMAR, First dose (after last modification) on Tue09/14/19 at 1645, Until Discontinue d 0.25 mg Given 09/17/2019 4:58 PM PUMP ASSEMBLER 0.25 mg Given 09/16/2019 11:11 PM PUMP ASSEMBLER 09/17/2019 9:04 AM PUMP ASSEMBLER 1 tablet senna/docusate (SENOKOT-S) tablet 1 Given tablet 1 tablet, Oral, TWICE DAILY, First dose on Tue09/12/19 at 2345, Until Discontinued, Hold for loose stools. If patient unable to take tablet, give 10 mL of senna/docusate (SENOKOT-S) solution. Send [employer] message to pharmacy., If patient unable to take tablet, give 10 mL of senna/docusate (SENOKOT-S) solution., 1 tablet Given 09/16/2019 11:06 PM PUMP ASSEMBLER 1 tablet Given 09/16/2019 9:25 AM PUMP ASSEMBLER 09/13/2019 1:08 AM PUMP ASSEMBLER 75 mL/hr sodium chloride 0.9 % infusion Given - New 1,000 mL, Intravenous, at 75 mL/hr, Bag CONTINUOUS, Starting Tue09/13/19 at 0100, Until Tue09/13/19 at 1155 09/12/2019 11:57 PM PUMP ASSEMBLER 50 mL sodium chloride PF 0.9% injection 50 mL Given 50 mL, Intravenous, ONCE, 1 dose, Tue09/13/19 at 0015, DO NOT SEND this medication unless it is requested. This med is usually available in floor stock., Intra-procedure (IR) 09/18/2019 9:14 AM PUMP ASSEMBLER 25 mg spironolactone (ALDACTONE) tablet 25 mg Given 25 mg, Oral, DAILY, First dose on Tue09/13/19 at 0900, Until Discontinued, NURSING: Please educate patient and document: Avoid using salt substitutes which have a high potassium content (Nu-Salt)., 25 mg Given 09/17/2019 9:04 AM PUMP ASSEMBLER 25 mg Given 09/16/2019 9:24 AM PUMP ASSEMBLER 09/18/2019 9:14 AM PUMP ASSEMBLER 0.4 mg tamsulosin (FLOMAX) capsule 0.4 mg Given 0.4 mg, Oral, DAILY, First dose on Meeta 09/13/19 at 0900, Until Discontinued, NURSING: Please educate patient and document: Give 1/2 hour following same meal everyday. Do not crush, chew or open the capsule. , 0.4 mg Given 09/17/2019 9:04 AM PUMP ASSEMBLER 0.4 mg Given 09/16/2019 9:26 AM PUMP ASSEMBLER documented in this encounter
--- OUTSIDE RECORDS SUMMARY | 2020-03-03 15:24 | XMS REPORT | Encounter Summary ---
Author Author [facility] Organization [facility] Address Unknown Phone Unavailable Care Team Providers Care Acoustics Teacher Name Role Phone Michael Velasquez MD Unavailable Lesley Butcher MD PCP Encounter Details Care Team Description Date Type Department 09/13/2019 [facility] [address] [address] Social History Date Tobacco Use [...] mouth daily. MV with Take 0.5 0 Unz-Dbvvecyp-Pecxam tablets by (CENTRUM SILVER) mouth twice 0.4-300-250 [...] Take 1 tablet 0 by mouth daily. 09/14/2019 atorvastatin (LIPITOR) 80 Take 40 mg by 0 mg tablet mouth at bedtime daily. 09/14/2019 citalopram (CELEXA) 40 mg Take 40 mg by 0 tablet mouth daily. 09/18/2019 09/26/2019 levETIRAcetam (KEPPRA) Take one 0 500 mg tablet tablet by mouth twice daily for 8 days. 09/14/2019 multivitamin with Take 0.5 0 minerals (MULTIVITAMIN & tablets by MINERAL FORMULA PO) mouth at bedtime daily. 09/18/2019 09/18/2019 warfarin (COUMADIN) 3 mg Take one 90 tablet 0 tablet tablet by mouth daily. Do NOT resume until 09/26/2019. Titrate to labs as per Ribbon Tier instructions. 09/18/2019 warfarin (COUMADIN) 3 mg Take 3 mg by 0 tablet mouth daily. Titrate to labs as per [employer]bon [employer] instructions. documented as of this encounter Plan of Treatment Not on filedocumented as of this encounter Goals Goal Patient Associated Recent Progress Patient-Stat Aut hor Goal Type Problems ed? GOAL General Yes Robert Freeman RN Note: To get better documented as of this encounter Procedures Comments Procedure Name Priority Date/Time Associated Diag nosis CT HEAD EXTERNAL IMAGING Routine 09/12/2019 Diagn osis unknown 11:56 PM DIVERSIFIED CROPS I FARMWORKER documented in this encounter Results * CT HEAD EXTERNAL IMAGING (09/12/2019 11:56 PM DIVERSIFIED CROPS I FARMWORKER) Specimen Narrative Performed At This order has been auto finalized and does not contain a result. documented in this encounter Visit Diagnoses Not on filedocumented in this encounter
--- OUTSIDE RECORDS SUMMARY | 2020-03-03 15:24 | XMS REPORT | Encounter Summary ---
Author Author [facility] Organization [facility] Address Unknown Phone Unavailable Care Team Providers Care Clinical Data Management Director Name Role Phone Michael Velasquez MD Unavailable Lesley Butcher MD PCP Encounter Details Care Team Description Date Type Department 09/13/2019 [facility] [address] [address] Social History Date Tobacco Use [...] mouth daily. MV with Take 0.5 0 Lss-Renrguow-Bbotme tablets by (CENTRUM SILVER) mouth twice 0.4-300-250 [...] until 09/26/2019. Titrate to labs as per Ice Cream Maker instructions. 09/18/2019 warfarin (COUMADIN) 3 mg Take 3 mg by 0 tablet mouth daily. Titrate to labs as per Ice Cream Maker instructions. documented as of this encounter Plan of Treatment Not on filedocumented as of this encounter Goals Goal Patient Associated Recent Progress Patient-Stat Aut hor Goal Type Problems ed? GOAL General Yes Robert Freeman RN Note: To get better documented as of this encounter Procedures Comments Procedure Name Priority Date/Time Associated Diag nosis GENERAL RAD CHEST Routine 09/12/2019 Diagnosis un known EXTERNAL IMAGING 11:55 PM PHOTOGRAPH TINTER documented in this encounter Results * GENERAL RAD CHEST EXTERNAL IMAGING (09/12/2019 11:55 PM PHOTOGRAPH TINTER) Specimen Narrative Performed At This order has been auto finalized and does not contain a result. documented in this encounter Visit Diagnoses Not on filedocumented in this encounter
--- OUTSIDE RECORDS SUMMARY | 2020-03-03 15:24 | XMS REPORT | Encounter Summary ---
Author Author [facility] Organization [facility] Address Unknown Phone Unavailable Care Team Providers Care Machine Former Name Role Phone Michael Velasquez MD Unavailable Lesley Butcher MD PCP Reason for Visit * Reason Comments Cochlear Implant Encounter Details Care Team Description Date Type Department Ton Weber MD [address] Ortho[facility] Lvl 2B [place] [address] Doctor, Miscellaneous Monalisa Leon AUD Sensorineural hearing loss (SNHL) of bot h ears 09/05/2019 Clinical [facility] [address] [place] [address] Social History Date Tobacco Use [...] Progress Notes * Monalisa Leon AUD - 09/05/2019 3:30 PM DAIRY FARMWORKER Estrada Godoy was seen in the clinic today for continued programming of h is Advanced Bionics cochlear implant. He is here with his and daughter. Mr. Godoy has had a lot going on since I have last seen him. He had surgery on a brain aneurysm for which he was hospitalized for several days following and surgery for a nose bleed which would not stop. 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 He has only worn a hearing aid in the left ear for a number of years. Internal Device Ear Compressor Assembler Internal Device Initial Stimulation Date Surgery Date Time Post Initial Stimulation Surgeon R Advanced Bionic Linda Ultra MS 03/10/18 02/24/18 1.5 years Yung Moreno MD Equipment: Ear Processor(s) Serial Number Magnet Strength Processor Condition R Beena CI Q90 [id number] good Equipment: good - replaced earmold tone hook. Incision site: healing well Magnet site: good Otoscopy: DNT Programming: Impedances: within normal limits Electrodes Deactiveated: none Data Logging: good Ms were measured to most comfortable volume in sound bursts. Map is fairly stable. Mr. Godoy reports good sound quality. Maps/Programs: Program Beena CI Q90 Processor 1 23 - AutoSense 2 23 - Speech in Noise *Back up was programmed the same. Aided Testing: Testing was completed today with a Beena CI processor in the right ear and his B eltone BTE in the left ear. Test 11/04/17 pre-op 04/07/18 1 month 06/09/18 3 months 11/29/18 8 months 02/05/19 11 months 09/05/19 1.5 years Az Bio (quiet) - R CI only 32% 53% 49% 45% 59% 36% Az Bio (quiet) - R CI + L JORDAN 73% 82% 76% 71% 77% 70% Az Bio (+5 dB SNR) - R CI + L JORDAN 36% 30% 35% 41% 37% 31% CNC (words) - R CI only DNT 38% 52% 30% DNT 30% CNC (phonemes) - R CI only DNT 61% 73% 49% DNT 43% CNC (words) - R CI + L JORDAN DNT DNT 64% 54% DNT DNT CNC (phonemes) - R CI + L JORDAN DNT DNT 81% 71% DNT DNT Evaluation of Aural Rehabilitation Status: 35 min. Aided soundfield thresholds are within acceptable limits at all test frequenc ies. Hearing Aid: Patient wears a BTE from [employer]. It was recommended he have the tubing replace d on his hearing aid. I re-tubed the earmold on his CI ear as it was very stiff and pulling on his sound processor. Compressor Assembler: [employer] Model: Serial Numbers: Repair Warranty: L&D Warranty: Battery: 675 Domes: full shell Programs: Volume: Summary: Programming was completed to Mr. Godoy' satisfaction. Mr. Godoy has had surgery on a brain aneurysm for which he was hospitalized for several days foll owing and a nose bleed which would not stop. He reports the processor to be fal ling off his ear often. Inspection reveals the tubing on the earmold to be very stiff which was causing it to pull the processor off rather than help hold it o n. This was re-tubed. Outcomes overall are down slightly but given all he has been through lately we will continue to monitor. Recommendations: Mr. Godoy should return to the clinic in 1 year for programming and outcomes . Y FARMWORKER documented in this encounter Plan of Treatment Not on filedocumented as of this encounter Goals Goal Patient Associated Recent Progress Patient-Stat Aut hor Goal Type Problems ed? GOAL General Yes Robert Freeman RN Note: To get better documented as of this encounter Procedures Comments Procedure Name Priority Date/Time Associated Diag kiko COCHLEAR IMPLANT Routine 09/05/2019 OUTCOMES-AUDIOGRAM documented in this encounter Visit Diagnoses Diagnosis Sensorineural hearing loss (SNHL) of mansi th ears documented in this encounter
--- OUTSIDE RECORDS SUMMARY | 2020-03-03 15:24 | XMS REPORT ---
Author Author Estrada GARDUNO [facility] Address [address] [place], [place] [id number] Care Team Providers Care Library Acquisitions Technician Name Role Phone SHAHBAZ GARDUNO PCP Allergies and Adverse Reactions Name Reaction Notes Bactrim ciprofloxacin IV DYE, IODINE CONTAINING Plan of Treatment Not available. Medications Active Name Start Date Estimated Completion Date SIG Co mments Protonix 40 mg oral tablet,delayed release (DR/EC) take 1 tablet (40 mg) by oral route once daily spironolactone 25 mg oral tablet take 1 tablet (25 mg) by oral route once daily allopurinol 100 mg oral tablet t trevon 1 tablet (100 mg) by oral route once daily Vitamin D-3 with Aloe 120-1,000-10 mg-unit-mg oral tablet take 1 tablet by oral route daily Lilly Allergy 180 mg oral tablet take 1 tablet (180 mg) by oral route once daily Multi Vitamin 9 mg iron/15 mL oral liquid take 1 milliliter by oral route daily citalopram 40 mg oral tablet take 1 table t (40 mg) by oral route once daily Requip 0.25 mg oral tablet take 1 tablet (0.25 mg) by oral route 1-3 hours before bedtime aspirin 325 mg oral tablet take 1 tablet (325 mg) by oral route once daily amiodarone 200 mg oral tablet ta ke 1 tablet (200 mg) by oral route once daily finasteride 5 mg oral tablet 07/18/2019 bro e 1 tablet (5 mg) by oral route once daily tamsulosin 0.4 mg oral capsule 07/18/2019 t trevon 2 capsules (0.8 mg) by oral route once daily 1/2 hour following the same meal each day Name Start Date Expiration Date SIG Comments cephalexin 500 mg oral capsule 06/15/2019 06/29/2019 t trevon 1 capsule (500 mg) by oral route every 12 hours for 14 days clotrimazole-betamethasone 1-0.05 % topical cream 10/16/2019 10/30/2019 apply to the affected and surrounding areas of skin by topical route 2 times per day in the morning and evening for 2 weeks Discontinued Name Start Date Discontinued Date SIG Comments Lipitor 80 mg oral tablet 10/16/2019 take 1 tablet (80 mg) by oral route once daily warfarin 3 mg oral tablet 10/16/2019 take 1 tablet (3 mg) by oral route once daily losartan 50 mg oral tablet 10/16/2019 take 1 tablet (50 mg) by oral route once daily Diflucan 150 mg oral tablet 06/15/2019 07/18/2019 take 1 tablet (150 mg) by oral route once Problem List Not available. Vital Signs Date Time BP-Sys(mm[Hg] BP-Jaimie(mm[Hg]) HR(bpm) RR(rpm) Temp WT HT HC BMI BSA BMI Percentile O2 Sat(%) 12/11/2019 9:18:00 AM 124 mm[Hg] 86 mm[Hg] 89 {beats}/min 18 rpm 97.7 F 207 lbs 72 in 28.074 kg/m2 2.184 m2 94 % 07/18/2019 2:41:00 PM 122 mm[Hg] 70 mm[Hg] 89 {beats}/min 18 rpm 97.7 F 207 lbs 72 in 28.07 kg/m2 2.18 m2 95 % 06/15/2019 9:35:00 AM 120 mm[Hg] 72 mm[Hg] 65 {beats}/min 18 rpm 97.3 F 207.25 lbs 72 in 28.1079 kg/m2 2.1853 m2 95 % Social History Name Description Comments Tobacco History of Procedures Date Ordered Description Order Status 06/15/2019 12:00 AM URINALYSIS AUTO W/SCOPE Reviewed 06/19/2019 8:12 AM US URINE CAPACITY MEASURE Reviewed Results Summary Date and Description Results 06/15/2019 11:29 AM COLOR Yellow CLARITY Clear S PEC GRAV 1.010 pH 6.5 PROTEIN Negative GLUCOSE Normal KETONE Negative BILIRUBIN Negative BLOOD 1+ NITRITE Negative LEUK SCREEN 75 RBC/HPF 4-10 WBC/HPF 11-20 BACTERIA/HPF 1+ SQUAMOUS EPI/LPF Few MUCOUS/LPF Few CULT SET UP? YES 06/19/2019 8:12 AM Residual Urine 80.0 mL History Of Immunizations Not available. History of Past Illness Name Date of Onset Comments AAA (abdominal aortic aneurysm) BPH (benign prostatic hyperplasia) Diverticulosis Dysphagia dyspnea Dysuria Hypertension GERD Gout Depression sleep apnea Atrial Fibrillation Retention of urine Urge Incontinence Vertigo Weakness Brain aneurysm Kidney Stones Stroke Dysuria Jun 15 2019 9:36AM Prostatitis Jun 15 2019 9:36AM Enlarged prostate with lower urinary tract symptoms (LUTS) A 2018 9:36AM Candidal balanitis Jun 15 2019 9:36AM Enlarged prostate Jul 18 2019 2:43PM Urinary retention Oct 16 2019 2:08PM Enlarged prostate Oct 16 2019 2:08PM Balanitis Oct 16 2019 2:08PM Urinary retention Dec 11 2019 9:26AM Payers Insurance Name Company Name Plan Name Plan Number Policy Number Levy cy Group Number Start Date Medicare Part B Medicare Of [place] [id number] N/A BCBS [facility] [id number] N/ A History of Encounters Visit Date Visit Type Provider 12/11/2019 Office visit SHAHBAZ GARDUNO APRN 10/16/2019 Office visit SHAHBAZ GARDUNO APRN 07/18/2019 Office visit Ayad Osuna MD 06/15/2019 Office visit SHAHBAZ GARDUNO DIE TRY OUT WORKER
--- OUTSIDE RECORDS SUMMARY | 2020-03-03 15:24 | XMS REPORT | Clinical Summary ---
Author Author [facility] [place] Organization [facility] [place] Address Unknown Phone Unavailable Care Team Providers Care Oxyacetylene Torch Operator Name Role Phone PCP Unavailable Allergies Not on File Medications Not on file Active Problems Not on file Social History Date Tobacco Use Types Packs/Day Years Used Never Assessed Sex Assigned at Date Recorded Not on file Industry Job Start Date Occupation Not on file Not on file Not on file Travel End Travel History Travel Start No recent travel history available. Last Filed Vital Signs Not on file Plan of Treatment Health Maintenance Due Date Last Done Comments ZOSTER VACCINE (1 of 2) 1987 PNEUMOCOCCAL VACCINE 65+ 2002 YEARS (1 of 2 - PCV13) INFLUENZA VACCINE 05/17/2019 Results Not on filefrom Last 3 Months
--- OUTSIDE RECORDS SUMMARY | 2020-03-03 15:24 | XMS REPORT | Clinical Summary ---
Author Author [facility] Organization [facility] Address Unknown Phone Unavailable Care Team Providers Care Flatbed Driver Name Role Phone PCP Unavailable Allergies Not [...]
--- OUTSIDE RECORDS SUMMARY | 2020-03-03 15:24 | XMS REPORT | Encounter Summary ---
Author Author [facility] Organization [facility] Address Unknown Phone Unavailable Care Team Providers Care Electric Lineman Name Role Phone PCP Unavailable Encounter Details Care Team Description Date Type Department Kishore Desouza MD [address] [place], [place] [id number] Obstructive Sleep Apnea (Adult) (Pediatr ic) (Primary Dx) 03/27/2007 Inpatient [facility] [address] [place] [id number] Social History Date Tobacco Use Types Packs/Day Years Used Never Assessed Sex Assigned at Date Recorded Not on file Industry Job Start Date Occupation Not on file Not on file Not on file Travel End Travel History Travel Start No recent travel history available. documented as of this encounter Plan of Treatment Not on filedocumented as of this encounter Visit Diagnoses Diagnosis Obstructive sleep apnea (adult) (pediat lexy) - Primary documented in this encounter
--- OUTSIDE RECORDS SUMMARY | 2020-03-03 15:24 | XMS REPORT | Encounter Summary ---
Author Author [facility] Organization [facility] Address Unknown Phone Unavailable Care Team Providers Care Canvas Goods Maker Name Role Phone PCP Unavailable Encounter Details Care Team Description Date Type Department Maicol Caballero MD [address] [place] [address] 12/03/2006 Outpatient [facility] Y Historical AFTER HOURS Social History Date Tobacco Use Types Packs/Day [...]
--- OUTSIDE RECORDS SUMMARY | 2020-03-03 15:24 | XMS REPORT | Encounter Summary ---
Author Author [facility] Organization [facility] Patricia Mccabe, [place], [facility] Address Unknown Phone Unavailable Care Team Providers Care Manager Technical Training Name Role Phone PCP Unavailable Encounter Details Care Team Description Date Type Department Abdi Crook DO [address] [place], [place] [id number] 03/09/1996 Inpatient Historical Social History Date Tobacco Use Types Packs/Day [...]
--- OUTSIDE RECORDS SUMMARY | 2020-03-03 15:24 | XMS REPORT | Encounter Summary ---
Author [facility] Address Unknown Phone Unavailable Care Team Providers Care Customer Retention Specialist Name Role Phone PCP Unavailable Encounter Details Care Team Description Date Type Department 01/05/1996 Inpatient Historical Social History Date Tobacco Use [...]
--- OUTSIDE RECORDS SUMMARY | 2020-03-03 15:24 | XMS REPORT | Encounter Summary ---
Author Author [facility] Organization [facility] Address Unknown Phone Unavailable Care Team Providers Care Traffic Engineering Technician Name Role Phone Michael Velasquez MD Unavailable Lesley Butcher MD PCP Reason for Visit * Reason Comments Other 3mth FUV * (Routine) Referred By Contact Referred To Contact Status Reason Specialty Diagnoses / Procedures Incomplete Encounter Details Care Team Description Date Type Department Ton Weber MD [address] [facility] Ortho/Med [place] Lvl [address]B [place] [address] Giant intracranial aneurysm (Primary Dx) 09/05/2019 Office Visit [facility] [address] [place] [address] Social History Date Tobacco Use [...] Signs Reading Time Taken Comments Vital Sign 130/72 09/05/2019 10:43 AM MARINE ENGINEERING PROFESSOR Blood Pressure 62 09/05/2019 10:43 AM MARINE ENGINEERING PROFESSOR Pulse - - Temperature - - Respiratory Rate - - Oxygen Saturation - - Inhaled Oxygen Concentration 97.4 kg (214 lb 12.8 oz) 09/05/2019 10:43 AM MARINE ENGINEERING PROFESSOR Weight 182.9 cm (6') 09/05/2019 10:43 AM MARINE ENGINEERING PROFESSOR Height 29.13 09/05/2019 10:43 AM MARINE ENGINEERING PROFESSOR Body Mass Index documented in this encounter Functional Status Date of Assessment Functional Status Response 03/26/2019 Does the patient have a hearing impairment: Yes documented as of this encounter Progress Notes * Ton Weber MD - 09/05/2019 10:45 AM MARINE ENGINEERING PROFESSOR Estrada Godoy is an 84-year-old male well-known to my clinic for a giant fu siform dolichoectactic VB aneurysm which is notable for growth over the past dec sukhi. However his symptoms were predominantly related to obstructive hydrocephal us from the lesion. This was treated to good success with implantation of a ADULT MINISTRIES DIRECTOR shunt. Since that time the patient has noted significant improvement with regards to al ertness, clearness of thinking, mobilization and overall quality of life. The im pression of the family is that he has had a significant improvement since the pl acement of the ADULT MINISTRIES DIRECTOR shunt. Otherwise the family notes that the patient has been doing very well. They have no concern for regression or development of new symptoms. Neuro exam: Alert and oriented x 4 CNII-XII: PERRL; sensation intact and equal to light touch bilaterally; extraoc ular muscle movements normal bilaterally; eyebrow raise, eye closure, and smile symmetrical and normal strength; Bilateral hearing aids with difficulty hearing; palate raise symmetrical; shoulder shrug 5/5 strength bilaterally; Tongue protr usion symmetrical. Strength 5/5 in all extremities Sensation intact to light touch throughout Negative for clonus and hofffmans Imaging: None new today most recent imaging demonstrates well place ADULT MINISTRIES DIRECTOR shunt wit h improvement in ventricular size and continued presence of the giant aneurysm. 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 Overall the patient is clinically doing well with regards to neurologic symptoms . Though there are numerous concerning features regarding the aneurysm, given his stability with symptoms, and given his advanced age, and the substantial procedu re related risks, the management option preferred by the patient and family at t he present time is continued observation. Patient can make an appointment at anytime in the future if he should have baugh e in symptoms or other concerns. In the absence of that, I would repeat the imag ing in 1 years time. Please feel free to contact me with any concern regarding the neurosurgical saad gement of this patient. Dictated but not read. I spent 20 minutes on the care of this patient, over half in direct consultation . NE ENGINEERING PROFESSOR * Glenna Navarro - 09/05/2019 10:45 AM MARINE ENGINEERING PROFESSOR Estrada returns to the clinic for a 3mth FUV. No new imaging was ordered for toda y's exam. He is under our care for surveillance of a giant fusiform dolichoecta ctic VB aneurysm causing obstructive hydrocephalus. He underwent placement of a ADULT MINISTRIES DIRECTOR shunt on 03/29/19. Implant: Codman Bactiseal ventricular catheter, Codman Cert as valve set at 5. Estrada was last seen in the clinic on 06/13/19. NE ENGINEERING PROFESSOR documented in this encounter Plan of Treatment Not on filedocumented as of this encounter Goals Goal Patient Associated Recent Progress Patient-Stat Aut hor Goal Type Problems ed? GOAL General Yes Robert Freeman, RN Note: To get better documented as of this encounter Visit Diagnoses Diagnosis Giant intracranial aneurysm Cerebral aneurysm, nonruptured documented in this encounter
--- OUTSIDE RECORDS SUMMARY | 2020-03-03 15:25 | XMS REPORT ---
Author Author Estrada GARDUNO [facility] Address [address] [place], [place] [id number] Care Team Providers Care Pole Frame Construction Worker Name Role Phone SHAHBAZ GARDUNO PCP Allergies [...] HC BMI BSA BMI Percentile O2 Sat(%) 07/18/2019 2:41:00 PM 122 mm[Hg] 70 mm[Hg] 89 {beats}/min 18 rpm 97.7 F 207 lbs 72 in 28.074 kg/m2 2.184 m2 95 % 06/15/2019 9:35:00 AM 120 mm[Hg] 72 mm[Hg] 65 {beats}/min 18 rpm 97.3 F 207.25 lbs 72 in 28.11 kg/m2 2.19 m2 95 % Social History Name Description [...] 2019 2:08PM Balanitis Oct 16 2019 2:08PM Payers Insurance Name Company Name Plan Name Plan Number Policy Number Levy cy Group Number Start Date Medicare Part B Medicare [place] [id number] N/A BCBS [facility] [id number] N/ A History of Encounters Visit Date Visit Type Provider 10/16/2019 Office visit SHAHBAZ GARDUNO APRN 07/18/2019 Office visit yAad Osuna MD 06/15/2019 Office visit SHAHBAZ GARDUNO APRN
[2020-03-03 15:39] VITALS: BP 146/89
--- OUTSIDE RECORDS SUMMARY | 2020-03-03 15:58 | XMS REPORT | Continuity of Care Document ---
Author Organization Unknown Address Unknown Phone Unavailable Allergies Active Description [...] UNKNOWN 12/29/2016 Yes NO KNOWN DRUG ALLERGIES [id number] Drug Allergy N/A N/A 02/08/2017 Yes iodine iodine Drug Allergy Moderate ITCHING 02/03/2018 Yes iodine iodine Drug Allergy Moderate ITCHING 02/03/2018 Yes amoxicillin [id number] Drug Aller gy Severe RASH 12/26/2018 Yes clavulanic acid [id number] D rug Allergy Severe RASH 12/26/2018 Yes Iodinated Contrast Media [id number] Drug Allergy Unknown N/A 12/26/2018 Yes Iodinated Contrast- Oral and IV Dye [id number] Drug Allergy Unknown N/A 12/26/2018 Yes amoxicillin [id number] Drug Aller gy Severe RASH, pt has re 05/25/2019 Medications Medication Packaging Start Date St op Date Route Dosage Sig Aspir-81 81 mg tablet,delayed release 11/13/2015 81 mg take 1 (one) by Oral route daily chondroitin sulfate A sodium (bulk) 88 % p owder 11/13/2015 88 % 1 (one) daily CoQ-10 100 mg capsule Capsul e 11/13/2015 100 mg take 2 (two) Capsule by Oral route daily nitroglycerin 0.4 mg sublingual tablet 11/13/2015 0.4 mg take 1 (one) by Sublingual route daily as needed Plavix 75 mg tablet Tablet 11/13/2015 75 mg take 1 (one) Tablet by Oral route EVERY OTHER DAY Krill Oil ([place] 3 & 6) 1,50 0 mg-165 mg-67.5 mg capsule 11/13/2015 07/14/2016 1,500-165-67.5 mg take 1 (one) Capsule by Oral route daily glucosamine HCl 1,500 mg tablet 11/13/2015 07/14/2016 1,500 mg take 1 (one) Tablet by Oral route daily Flomax 0.4 mg capsule 11/13/2015 0.4 mg bro e 1 (one) by Oral route daily multivitamin tablet 11/13/2015 1 (o ne) by Oral route daily Vitamin D3 2,000 unit capsule 11/13/2015 2,000 unit 1 (one) by Oral route daily spironolactone 25 mg tablet 11/13/2015 25 mg take 1 (one) Tablet by Oral route daily NexIUM 20 mg capsule,delayed release 11/13/2015 07/14/2016 20 mg take 1 (one) by Oral route daily citalopram 20 mg tablet 11/13/2015 07/14/2016 20 mg take 1 (one) Tablet by Oral route daily clonazePAM 1 mg tablet 11/13/2015 1 mg take 1 (one) Tablet by Oral route daily dexamethasone 0.5 mg tablet 11/13/2015 0.5 mg take 1 (one) Tablet by Oral route daily losartan 25 mg tablet 11/13/2015 07/14/2016 25 mg take 1 (one) Tablet by Oral route daily amLODIPine 5 mg tablet 11/13/2015 07/14/2016 5 mg take 1 (one) Tablet by Oral route daily apple cider vinegar 300 mg tablet 07/14/2016 300 mg take 1 (one) Tablet by Oral route daily Aleve 220 mg capsule Capsule 07/14/2016 220 mg take 2 (two) Capsule by Oral route daily as needed Iron 21/ 150 mg iron (21)-400 mcg (7) tab let 07/14/2016 150 mg iron (21) -400 mcg (7) 1 (one) by Oral route daily Vitamin B-6 100 mg tablet 07/14/2016 100 mg bro e 1 (one) Tablet by Oral route daily allopurinol 100 mg tablet 07/14/2016 100 mg bro e 1 (one) Tablet by Oral route daily pantoprazole 40 mg tablet,delayed release 07/14/2016 40 mg take 1 (one) by Oral route daily Problems Date Dx Coded Attending Type Code Diagnosis Diagnosed By 09/13/2014 AMELIE SANDERSON MD Ot 401 .9 09/13/2014 AMELIE SANDERSON MD Ot 414.01 09/13/2014 AMELIE SANDERSON MD Ot 441 .4 09/13/2014 AMELIE SANDERSON MD Ot 786.50 09/13/2014 AMELIE SANDERSON MD Ot 789.06 09/13/2014 AMELIE SANDERSON MD Ot V45.82 12/11/2014 FRANCISCO ORDONEZ, DOUG Payan Ot 729.5 12/11/2014 FRANCISCO ORDONEZ, DOUG Payan Ot 793.7 12/11/2014 FRANCISCO ORDONEZ, DOUG M Ot 729.5 12/11/2014 FRANCISCO ORDONEZ, DOUG M Ot 793.7 01/09/2015 Ot 593.2 01/09/2015 Ot 599.72 05/27/2015 DOUG SINGH MD M Ot 729.5 05/27/2015 FRANCISCO ORDONEZ, DOUG M Ot 793.7 05/27/2015 Ot 593.2 05/27/2015 Ot 599.72 06/09/2015 DOUG SINGH MD Ot 729.5 06/09/2015 DOUG SINGH MD M Ot 793.7 06/09/2015 Ot 593.2 06/09/2015 Ot 599.72 06/09/2015 MADISON CARL Ot 715. 36 06/09/2015 MADISON CARL CRITICAL CARE PHYSICIAN Ot 717. 3 06/09/2015 MADISON CARL CRITICAL CARE PHYSICIAN Ot 717. 40 06/09/2015 MADISON CARL CRITICAL CARE PHYSICIAN Ot 726. 60 06/09/2015 MADISON CARL CRITICAL CARE PHYSICIAN Ot 727. 43 06/11/2015 DOUG SINGH MD Ot 729.5 06/11/2015 DOUG SINGH MD Ot 793.7 06/11/2015 Ot 593.2 06/11/2015 Ot 599.72 06/11/2015 MADISON CARL CRITICAL CARE PHYSICIAN Ot 715. 36 06/11/2015 MADISON CARL CRITICAL CARE PHYSICIAN Ot 717. 3 06/11/2015 MADISON CARL CRITICAL CARE PHYSICIAN Ot 717. 40 06/11/2015 MADISON CARL CRITICAL CARE PHYSICIAN Ot 726. 60 06/11/2015 MADISON CARL CRITICAL CARE PHYSICIAN Ot 727. 43 06/11/2015 XOCHITL ORDONEZ, EMILEE P Ot 836.0 [...] EMILEE P Ot V57.1 06/17/2015 MADISON CARL CRITICAL CARE PHYSICIAN Ot 715. 36 06/17/2015 MADISON CARL CRITICAL CARE PHYSICIAN Ot 717. 3 06/17/2015 MADISON CARL CRITICAL CARE PHYSICIAN Ot 717. 40 06/17/2015 MADISON CARL CRITICAL CARE PHYSICIAN Ot 726. 60 06/17/2015 MADISON CARL CRITICAL CARE PHYSICIAN Ot 727. 43 06/26/2015 MADISON CARL CRITICAL CARE PHYSICIAN Ot 715. 36 06/26/2015 MADISON CARL CRITICAL CARE PHYSICIAN Ot 717. 3 06/26/2015 MADISON CARL CRITICAL CARE PHYSICIAN Ot 717. 40 06/26/2015 MADISON CARL CRITICAL CARE PHYSICIAN Ot 726. 60 06/26/2015 MADISON CARL CRITICAL CARE PHYSICIAN Ot 727. 43 11/27/2015 FRANCISCO ORDONEZ, DOUG Payan Ot 729.5 11/27/2015 DOUG SINGH MD Ot 793.7 11/27/2015 Ot 593.2 11/27/2015 Ot 599.72 11/27/2015 MADISON CARL CRITICAL CARE PHYSICIAN Ot 715. 36 11/27/2015 MADISON CARL CRITICAL CARE PHYSICIAN Ot 717. 3 11/27/2015 MADISON CARL CRITICAL CARE PHYSICIAN Ot 717. 40 11/27/2015 MADISON CARL CRITICAL CARE PHYSICIAN Ot 726. 60 11/27/2015 MADISON CARL CRITICAL CARE PHYSICIAN Ot 727. 43 11/27/2015 XOCHITL ORDONEZ, EMILEE P Ot 836.0 11/27/2015 XOCHITL ORDONEZ, EMILEE P Ot 836.1 11/27/2015 XOCHITL ORDONEZ, EMILEE P Ot E000.8 11/27/2015 XOCHITL ORDONEZ, EMILEE P Ot E928.9 11/27/2015 XOCHITL ORDONEZ, EMILEE P Ot V72.84 11/27/2015 XOCHITL ORDONEZ, EMILEE P Ot V74.8 11/29/2015 DAPHNE BUTCHER MD Ot D50.0 IRON DEFICIENCY ANEMIA SECONDARY TO BLOO 11/29/2015 DAPHNE BUTCHER MD Ot I1 0 ESSENTIAL (PRIMARY) HYPERTENSION 11/29/2015 DAPHNE BUTCHER MD Ot 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 11/29/2015 DAPHNE BUTCHER MD Ot J18.9 PNEUMONIA, UNSPECIFIED ORGANISM 11/29/2015 DAPHNE BUTCHER MD, Ot J95.89 OTH POSTPROC COMPLICATIONS AND DISORDERS 11/29/2015 DAPHNE BUTCHER MD Ot R09.02 HYPOXEMIA 11/29/2015 DAPHNE BUTCHER MD, Ot T82.7XXA INFECT/INFLM REACT D/T OTH CARDI/VASC DE 11/29/2015 DAPHNE BUTCHER MD, Ot Z87.891 PERSONAL HISTORY OF NICOTINE DEPENDENCE 11/29/2015 DAPHNE BUTCHER MD Ot Z95.5 PRESENCE OF CORONARY ANGIOPLASTY IMPLANT 11/29/2015 DAPHNE BUTCHER MD Ot Z95.828 PRESENCE OF OTHER VASCULAR IMPLANTS AND 11/29/2015 DAPHNE BUTCHER MD Ot Z98.89 OTHER SPECIFIED POSTPROCEDURAL STATES 04/08/2016 LORENA MATA MD, I Ot N28. 1 CYST OF KIDNEY, ACQUIRED 04/08/2016 ESPERANZA MD, LORENA I Ot N28. 1 CYST OF KIDNEY, ACQUIRED 05/04/2016 ESPERANZA ORDONEZ, LORENA I Ot N28. 1 CYST OF KIDNEY, ACQUIRED 05/18/2016 ESPERANZA ORDONEZ, LORENA I Ot N28. 1 CYST OF KIDNEY, ACQUIRED 06/17/2016 ESPERANZA ORDONEZ, LORENA I Ot N28. 1 CYST OF KIDNEY, ACQUIRED 08/20/2016 Nancie ORDONEZ, Jesus Suarez E66 .9 Obesity, unspecified Nael White 08/20/2016 Nancie ORDONEZ, Jesus Suarez I10 Essential (primary) hypertension Nael White 08/20/2016 Nancie ORDONEZ, Jesus Suarez I71 .4 Abdominal aortic aneurysm, without rupture Nael White 01/04/2017 GARCIA KRAFT LIABILITY CLAIMS ADJUSTER Ot I1 0 ESSENTIAL (PRIMARY) HYPERTENSION 01/05/2017 GARCIA KRAFT LIABILITY CLAIMS ADJUSTER Ot I1 0 ESSENTIAL (PRIMARY) HYPERTENSION 01/05/2017 GARCIA KRAFT APRN Ot 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, 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 01/05/2017 GARCIA KRAFT APRN Ot I73.9 PERIPHERAL VASCULAR DISEASE, UNSPECIFIED 01/05/2017 GARCIA KRAFT LIABILITY CLAIMS ADJUSTER Ot I1 0 ESSENTIAL (PRIMARY) HYPERTENSION 01/05/2017 GARCIA KRAFT LIABILITY CLAIMS ADJUSTER Ot 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, 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 01/05/2017 GARCIA KRAFT APRN Ot I73.9 PERIPHERAL VASCULAR DISEASE, UNSPECIFIED 01/07/2017 ESPERANZA ORDONEZ, LORENA Angelo Ot N28. 1 CYST OF KIDNEY, ACQUIRED 01/07/2017 SHAI BARAHONA-C Ot 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, 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 01/10/2017 GARCIA KRAFT LIABILITY CLAIMS ADJUSTER Ot I1 0 ESSENTIAL (PRIMARY) HYPERTENSION 01/10/2017 GARCIA KRAFT LIABILITY CLAIMS ADJUSTER Ot 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, 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 01/10/2017 GARCIA KRAFT LIABILITY CLAIMS ADJUSTER Ot I73.9 PERIPHERAL VASCULAR DISEASE, UNSPECIFIED 01/10/2017 SHAI BARAHONA-C Ot 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, 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 01/26/2017 GARCIA KRAFT LIABILITY CLAIMS ADJUSTER Ot I1 0 ESSENTIAL (PRIMARY) HYPERTENSION 01/26/2017 GARCIA KRAFT LIABILITY CLAIMS ADJUSTER Ot 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, 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 01/26/2017 GARCIA KRAFT LIABILITY CLAIMS ADJUSTER Ot I73.9 PERIPHERAL VASCULAR DISEASE, UNSPECIFIED 01/28/2017 SHAI BARAHONA-C Ot 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, 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 02/04/2017 SHAI BARAHONA PA-C Ot 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, 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 02/08/2017 ROBERT ORDONEZ, CORINNE Petersen Other T82.898A OTH COMPLICATION OF VASCULAR PROSTH DEV/GRFT, INIT 02/08/2017 ROBERT ORDONEZ, CORINNE Petersen Other Z01.812 ENCOUNTER FOR PREPROCEDURAL LABORATORY EXAMINATION 03/21/2017 ESPERANZA ORDONEZ, LORENA I Ot N28. 1 CYST OF KIDNEY, ACQUIRED 03/21/2017 SHAI BARAHONA-C Ot 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, 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 03/22/2017 KOURTNEY NANCEP Ot Z01.812 ENCOUNTER FOR PREPROCEDURAL LABORATORY E 03/23/2017 SHAI BARAHONA-C Ot 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, 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 03/23/2017 SHAI BARAHONA-C Ot K57.30 DVRTCLOS OF LG INT W/O PERFORATION OR AB 03/23/2017 SHAI BARAHONA-C Ot K76.0 FATTY (CHANGE OF) LIVER, NOT ELSEWHERE C 04/12/2017 KOURTNEY NANCE [facility] Ot Z01.812 ENCOUNTER FOR PREPROCEDURAL LABORATORY E 04/20/2017 SHAI BARAHONA-C Ot 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, 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 04/20/2017 SHAI BARAHONA-C Ot K57.30 DVRTCLOS OF LG INT W/O PERFORATION OR AB 04/20/2017 SHAI BARAHONA PA-C Ot K76.0 FATTY (CHANGE OF) LIVER, NOT ELSEWHERE C 04/25/2017 SHAI BARAHONA-C Ot 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, 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 04/25/2017 SHAI BARAHONA PA-C Ot K57.30 DVRTCLOS OF LG INT W/O PERFORATION OR AB 04/25/2017 SHAI BARAHONA PA-C Ot K76.0 FATTY (CHANGE OF) LIVER, NOT ELSEWHERE C 10/20/2017 WALI SALAZAR DO Ot R13. 10 DYSPHAGIA, UNSPECIFIED 10/20/2017 WALI SALAZAR DO Ot Z01.818 ENCOUNTER FOR OTHER PREPROCEDURAL EXAMIN 10/21/2017 WALI SALAZAR DO Ot R13. 10 DYSPHAGIA, UNSPECIFIED 10/21/2017 WALI SALAZAR DO Ot Z01.818 ENCOUNTER FOR OTHER PREPROCEDURAL EXAMIN 10/25/2017 GARCIA KRAFT LIABILITY CLAIMS ADJUSTER Ot I1 0 ESSENTIAL (PRIMARY) HYPERTENSION 10/25/2017 GARCIA KRAFT LIABILITY CLAIMS ADJUSTER Ot 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, 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 10/25/2017 GARCIA KRAFT LIABILITY CLAIMS ADJUSTER Ot I73.9 PERIPHERAL VASCULAR DISEASE, UNSPECIFIED 10/25/2017 WALI SALAZAR DO Ot E78. 5 HYPERLIPIDEMIA, UNSPECIFIED 10/25/2017 WALI SALAZAR DO Ot F32. 9 MAJOR DEPRESSIVE DISORDER, SINGLE EPISOD 10/25/2017 WALI SALAZAR DO Ot F41. 9 ANXIETY DISORDER, UNSPECIFIED 10/25/2017 WALI SALAZAR DO Ot G47. 33 OBSTRUCTIVE SLEEP APNEA (ADULT) (PEDIATR 10/25/2017 WALI SALAZAR DO Ot I10 ESSENTIAL (PRIMARY) HYPERTENSION 10/25/2017 WALI SALAZAR DO Ot I25. 10 ATHSCL HEART DISEASE OF [place] CORONARY 10/25/2017 WALI SALAZAR DO Ot K21. 0 GASTRO-ESOPHAGEAL REFLUX DISEASE WITH ES 10/25/2017 WALI SALAZAR DO Ot K44. 9 DIAPHRAGMATIC HERNIA WITHOUT OBSTRUCTION 10/25/2017 WALI SALAZAR DO Ot Z79. 2 JOINT CUTTER MACHINE (CURRENT) USE OF ANTIBIOTICS 10/25/2017 WALI SALAZAR DO Ot Z79.899 OTHER HALFWAY (CURRENT) DRUG THERAPY 10/25/2017 WALI SALAZAR DO Ot Z95. 5 PRESENCE OF CORONARY ANGIOPLASTY IMPLANT 10/27/2017 WALI SALAZAR DO Ot E78. 5 HYPERLIPIDEMIA, UNSPECIFIED 10/27/2017 WALI SALAZAR DO Ot F32. 9 MAJOR DEPRESSIVE DISORDER, SINGLE EPISOD 10/27/2017 WALI SALAZAR DO Ot F41. 9 ANXIETY DISORDER, UNSPECIFIED 10/27/2017 SALAZAR DO, WALI D Ot G47. 33 OBSTRUCTIVE SLEEP APNEA (ADULT) (PEDIATR 10/27/2017 SALAZAR DO, WALI D Ot I10 ESSENTIAL (PRIMARY) HYPERTENSION 10/27/2017 SALAZAR DOWALI D Ot I25. 10 ATHSCL HEART DISEASE OF [place] CORONARY 10/27/2017 SALAZAR DOPEDROTT D Ot K21. 0 GASTRO-ESOPHAGEAL REFLUX DISEASE WITH ES 10/27/2017 SALAZAR DOPEDROTT D Ot K44. 9 DIAPHRAGMATIC HERNIA WITHOUT OBSTRUCTION 10/27/2017 SALAZAR DOWALI D Ot Z79. 2 JOINT CUTTER MACHINE (CURRENT) USE OF ANTIBIOTICS 10/27/2017 SALAZAR DOWALI D Ot Z79.899 OTHER JOINT CUTTER MACHINE (CURRENT) DRUG THERAPY 10/27/2017 SALAZAR DOWALI D Ot Z95. 5 PRESENCE OF CORONARY ANGIOPLASTY IMPLANT 10/28/2017 WALI SALAZAR DO Ot E78. 5 HYPERLIPIDEMIA, UNSPECIFIED 10/28/2017 WALI SALAZAR DO D Ot F32. 9 MAJOR DEPRESSIVE DISORDER, SINGLE EPISOD 10/28/2017 WALI SALAZAR DO Ot F41. 9 ANXIETY DISORDER, UNSPECIFIED 10/28/2017 SALAZAR DOWALI D Ot G47. 33 OBSTRUCTIVE SLEEP APNEA (ADULT) (PEDIATR 10/28/2017 SALAZAR DO, WALI D Ot I10 ESSENTIAL (PRIMARY) HYPERTENSION 10/28/2017 WALI SALAZAR DO Ot I25. 10 ATHSCL HEART DISEASE OF [place] CORONARY 10/28/2017 WALI SALAZAR DO D Ot K21. 0 GASTRO-ESOPHAGEAL REFLUX DISEASE WITH ES 10/28/2017 WALI SALAZAR DO Ot K44. 9 DIAPHRAGMATIC HERNIA WITHOUT OBSTRUCTION 10/28/2017 WALI SALAZAR DO Ot Z79. 2 JOINT CUTTER MACHINE (CURRENT) USE OF ANTIBIOTICS 10/28/2017 WALI SALAZAR DO Ot Z79.899 OTHER HALFWAY (CURRENT) DRUG THERAPY 10/28/2017 WALI SALAZAR DO Ot Z95. 5 PRESENCE OF CORONARY ANGIOPLASTY IMPLANT 11/14/2017 KENISHA ORDONEZ, TIERRA Ot H91.93 UNSPECIFIED HEARING LOSS, BILATERAL 11/14/2017 TIERRA DE MD Ot R93.8 ABNORMAL FINDINGS ON DIAGNOSTIC IMAGING 11/15/2017 GARCIA KRAFT APRN Ot I1 0 ESSENTIAL (PRIMARY) HYPERTENSION 11/15/2017 ABENA, GARCIA M LIABILITY CLAIMS ADJUSTER Ot 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, 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 11/15/2017 GARCIA KRAFT LIABILITY CLAIMS ADJUSTER Ot I73.9 PERIPHERAL VASCULAR DISEASE, UNSPECIFIED 11/15/2017 KENISHA ORDONEZ, TIERRA Ot H91.93 UNSPECIFIED HEARING LOSS, BILATERAL 11/15/2017 KENISHA ORDONEZ, TIERRA Ot R93.8 ABNORMAL FINDINGS ON DIAGNOSTIC IMAGING 11/17/2017 TIERRA DE MD Ot H91.93 UNSPECIFIED HEARING LOSS, BILATERAL 11/17/2017 KENISHA ORDONEZ, TIERRA Ot 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, NONRUPTURED 11/17/2017 DAPHNE BUTCHER MD Ot I1 0 ESSENTIAL (PRIMARY) HYPERTENSION 11/22/2017 KENISHA ORDONEZ, TIERRA Ot H91.93 UNSPECIFIED HEARING LOSS, BILATERAL 11/22/2017 TIERRA DE MD Ot 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 3 BENIGN NEOPLASM OF TRANSVERSE COLON 04/30/2018 Kirit Shahid MD D62 ACUTE POSTHEMORRHAGIC ANEMIA 04/30/2018 Kirit Shahid MD F32. 9 MAJOR DEPRESSIVE DISORDER, SINGLE EPISODE, UNSPECI 04/30/2018 Kirit Shahid MD G25. 81 RESTLESS LEGS SYNDROME 04/30/2018 Kirit Shahid MD G47. 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 9 PERIPHERAL VASCULAR DISEASE, UNSPECIFIED 04/30/2018 Kirit Shahid MD I77. 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 OF ARTERY OF UPPER EXTREMITY 04/30/2018 Kirit Shahid MD I95. 9 HYPOTENSION, UNSPECIFIED 04/30/2018 Kirit Shahid MD K21. 9 GASTRO-ESOPHAGEAL REFLUX DISEASE WITHOUT ESOPHAGIT 04/30/2018 Kirit Shahid MD K57. 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 8 OTHER HEMORRHOIDS 04/30/2018 Kirit Shahid MD K92. 2 GASTROINTESTINAL HEMORRHAGE, UNSPECIFIED 04/30/2018 Kirit Shahid MD M10. 9 GOUT, UNSPECIFIED 04/30/2018 Kirit Sahhid MD N17. 9 ACUTE KIDNEY FAILURE, UNSPECIFIED 04/30/2018 Kirit Shahid MD T82.330A LEAKAGE OF AORTIC (BIFURCATION) GRAFT (REPLACEMENT 04/30/2018 Kirit Shahid MD Z79. 02 JOINT CUTTER MACHINE (CURRENT) USE OF ANTITHROMBOTICS/ANTIPLA 04/30/2018 Kirit Shahid MD Z79. 82 HALFWAY (CURRENT) USE OF ASPIRIN 04/30/2018 Kirit Shahid MD Z90. 49 ACQUIRED ABSENCE OF OTHER SPECIFIED PARTS OF DIGES 04/30/2018 Kirit Shahid MD Z91. 041 RADIOGRAPHIC DYE ALLERGY STATUS 04/30/2018 Kirit Shahid MD Z95. 5 PRESENCE OF CORONARY ANGIOPLASTY IMPLANT AND GRAFT 04/30/2018 Kirit Shahid MD Z96. 21 COCHLEAR IMPLANT STATUS 08/01/2018 LORENA MATA I I10 Essential (primary) hypertension LORENA MATA I 10/24/2018 DAPHNE BUTCHER MD Ot H91.10 PRESBYCUSIS, UNSPECIFIED EAR 10/24/2018 DAPHNE BUTCHER MD Ot I1 0 ESSENTIAL (PRIMARY) HYPERTENSION 10/24/2018 DAPHNE BUTCHER MD Ot I25.10 ATHSCL HEART DISEASE OF [place] CORONARY 10/26/2018 DAPHNE BUTCHER MD Ot H91.10 PRESBYCUSIS, UNSPECIFIED EAR 10/26/2018 DAPHNE BUTCHER MD Ot I1 0 ESSENTIAL (PRIMARY) HYPERTENSION 10/26/2018 NOVA MD, DAPHNE A Ot I25.10 ATHSCL HEART DISEASE OF [place] CORONARY 11/10/2018 DAPHNE BUTCHER MD Ot H91.10 PRESBYCUSIS, UNSPECIFIED EAR 11/10/2018 DAPHNE BUTCHER MD Ot I1 0 ESSENTIAL (PRIMARY) HYPERTENSION 11/10/2018 DAPHNE BUTCHER MD Ot I25.10 ATHSCL HEART DISEASE OF [place] CORONARY 11/15/2018 DAPHNE BUTCHER MD Ot H91.10 PRESBYCUSIS, UNSPECIFIED EAR 11/15/2018 DAPHNE BUTCHER MD Ot I1 0 ESSENTIAL (PRIMARY) HYPERTENSION 11/15/2018 DAPHNE BUTCHER MD Ot I25.10 ATHSCL HEART DISEASE OF [place] CORONARY 11/28/2018 KOURTNEY NANCE CRITICAL CARE PHYSICIAN Ot I25.10 ATHSCL HEART DISEASE OF [place] CORONARY 11/28/2018 KOURTNEY NANCE CRITICAL CARE PHYSICIAN Ot R06.02 SHORTNESS OF BREATH 11/28/2018 KOURTNEY NANCE CRITICAL CARE PHYSICIAN Ot R42 DIZZINESS AND GIDDINESS 12/19/2018 KOURTNEY NANCEP Ot I25.10 ATHSCL HEART DISEASE OF [place] CORONARY 12/19/2018 KOURTNEY NANCEP Ot R06.02 SHORTNESS OF BREATH 12/19/2018 KOURTNEY NANCEP Ot R42 DIZZINESS AND GIDDINESS 12/20/2018 DAPHNE BUTCHER MD Ot D64.9 ANEMIA, UNSPECIFIED 12/20/2018 DAPHNE BUTCHER MD Ot F32.9 MAJOR DEPRESSIVE DISORDER, SINGLE EPISOD 12/20/2018 DAPHNE BUTCHER MD Ot G47.30 SLEEP APNEA, UNSPECIFIED 12/20/2018 DAPHNE BUTCHER MD Ot I1 0 ESSENTIAL (PRIMARY) HYPERTENSION 12/20/2018 DAPHNE BUTCHER MD Ot I25.10 ATHSCL HEART DISEASE OF [place] CORONARY 12/20/2018 DAPHNE BUTCHER MD Ot 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, 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 12/20/2018 DAPHNE BUTCHER MD Ot K21.9 GASTRO-ESOPHAGEAL REFLUX DISEASE WITHOUT 12/20/2018 DAPHNE BUTCHER MD Ot K92.2 GASTROINTESTINAL HEMORRHAGE, UNSPECIFIED 12/20/2018 DAPHNE BUTCHER MD Ot Z79.02 JOINT CUTTER MACHINE (CURRENT) USE OF ANTITHROMBOTI 12/20/2018 DAPHNE BUTCHER MD Ot Z79.82 HALFWAY (CURRENT) USE OF ASPIRIN 12/20/2018 DAPHNE BUTCHER MD Ot Z79.899 OTHER HALFWAY (CURRENT) DRUG THERAPY 12/20/2018 DAPHNE BUTCHER MD Ot Z95.5 PRESENCE OF CORONARY ANGIOPLASTY IMPLANT 12/20/2018 KOURTNEY NANCE Ot I25.10 ATHSCL HEART DISEASE OF [place] CORONARY 12/20/2018 KOURTNEY NANCE Ot R06.02 SHORTNESS OF BREATH 12/20/2018 KOURTNEY NANCE Ot R42 DIZZINESS AND GIDDINESS 12/20/2018 ESPERANZA ORDONEZ, LORENA Angelo Ot N28. 1 CYST OF KIDNEY, ACQUIRED 12/20/2018 SHAI BARAHONA PA-C Ot 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, 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 12/20/2018 SHAI BARAHONA PA-C Ot 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, 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 12/20/2018 SHAI BARAHONA PA-C Ot K57.30 DVRTCLOS OF LG INT W/O PERFORATION OR AB 12/20/2018 SHAI BARAHONA PA-C Ot K76.0 FATTY (CHANGE OF) LIVER, [...] ANEURYSM, NONRUPTURED 12/20/2018 DAPHNE BUTCHER MD Ot I1 0 ESSENTIAL (PRIMARY) HYPERTENSION 12/20/2018 DAPHNE BUTCHER MD Ot H91.10 PRESBYCUSIS, UNSPECIFIED EAR 12/20/2018 DAPHNE BUTCHER MD Ot I1 0 ESSENTIAL (PRIMARY) HYPERTENSION 12/20/2018 DAPHNE BUTCHER MD Ot I25.10 ATHSCL HEART DISEASE OF [place] CORONARY 12/20/2018 KOURTNEY NANCE Ot I25.10 ATHSCL HEART DISEASE OF [place] CORONARY 12/20/2018 KOURTNEY NANCEP Ot R06.02 SHORTNESS OF BREATH 12/20/2018 KOURTNEY NANCE CRITICAL CARE PHYSICIAN Ot R42 DIZZINESS AND GIDDINESS 12/20/2018 DAPHNE BUTCHER MD Ot D64.9 ANEMIA, UNSPECIFIED 12/20/2018 DAPHNE BUTCHER MD Ot F32.9 MAJOR DEPRESSIVE DISORDER, SINGLE EPISOD 12/20/2018 DAPHNE BUTCHER MD, Ot G47.30 SLEEP APNEA, UNSPECIFIED 12/20/2018 DAPHNE BUTCHER MD Ot I1 0 ESSENTIAL (PRIMARY) HYPERTENSION 12/20/2018 DAPHNE BUTCHER MD Ot I25.10 ATHSCL HEART DISEASE OF [place] CORONARY 12/20/2018 DAPHNE BUTCHER MD Ot 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, 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 12/20/2018 DAPHNE BUTCHER MD Ot K21.9 GASTRO-ESOPHAGEAL REFLUX DISEASE WITHOUT 12/20/2018 DAPHNE BUTCHER MD Ot K92.2 GASTROINTESTINAL HEMORRHAGE, UNSPECIFIED 12/20/2018 DAPHNE BUTCHER MD Ot Z79.02 HALFWAY (CURRENT) USE OF ANTITHROMBOTI 12/20/2018 DAPHNE BUTCHER MD Ot Z79.82 JOINT CUTTER MACHINE (CURRENT) USE OF ASPIRIN 12/20/2018 DAPHNE BUTCHER MD, Ot Z79.899 OTHER HALFWAY (CURRENT) DRUG THERAPY 12/20/2018 DAPHNE BUTCHER MD Ot Z95.5 PRESENCE OF CORONARY ANGIOPLASTY IMPLANT 12/26/2018 ESPERANZA ORDONEZ, LORENA Angelo Ot N28. 1 CYST OF KIDNEY, ACQUIRED 12/26/2018 SHAI BARAHONA PA-C Ot 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, 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 12/26/2018 GARCIA KRAFT APRN Ot I1 0 ESSENTIAL (PRIMARY) HYPERTENSION 12/26/2018 GARCIA KRAFT APRN Ot 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, 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 12/26/2018 GARCIA KRAFT APRN Ot I73.9 PERIPHERAL VASCULAR DISEASE, UNSPECIFIED 12/26/2018 SHAI BARAHONA PA-C Ot 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, 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 12/26/2018 SHAI BARAHONA PA-C Ot K57.30 DVRTCLOS OF LG INT W/O PERFORATION OR AB 12/26/2018 SHAI BARAHONA PA-C Ot K76.0 FATTY (CHANGE OF) LIVER, NOT ELSEWHERE C 12/26/2018 KOURTNEY NANCEP Ot Z01.812 ENCOUNTER FOR PREPROCEDURAL LABORATORY E 12/26/2018 KENISHA ORDONEZ, TIERRA Ot H91.93 UNSPECIFIED HEARING LOSS, BILATERAL 12/26/2018 KENISHA ORDONEZ, TIERRA Ot R93.8 ABNORMAL FINDINGS ON DIAGNOSTIC IMAGING 12/26/2018 KENISHA ORDONEZ, TIERRA Christianson H91.93 UNSPECIFIED HEARING LOSS, BILATERAL 12/26/2018 KENISHA ORDONEZ, TIERRA Ot 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, NONRUPTURED 12/26/2018 NOVA ORDONEZ, DAPHNE Pollock Ot I1 0 ESSENTIAL (PRIMARY) HYPERTENSION 12/26/2018 NOVA ORDONEZ, DAPHNE Pollock Ot H91.10 PRESBYCUSIS, UNSPECIFIED EAR 12/26/2018 DAPHNE BUTCHER MD Ot I1 0 ESSENTIAL (PRIMARY) HYPERTENSION 12/26/2018 NOVA ORDONEZ, DAPHNE Pollock Ot I25.10 ATHSCL HEART DISEASE OF [place] CORONARY 12/26/2018 KOURTNEY NANCEP Ot I25.10 ATHSCL HEART DISEASE OF [place] CORONARY 12/26/2018 KOURTNEY NANCE CRITICAL CARE PHYSICIAN Ot R06.02 SHORTNESS OF BREATH 12/26/2018 KOURTNEY NANCE CRITICAL CARE PHYSICIAN Ot R42 DIZZINESS AND GIDDINESS 12/26/2018 RAMÓN PRITCHARD MD Ot Z01.81 8 ENCOUNTER FOR OTHER PREPROCEDURAL EXAMIN 12/26/2018 RAMÓN PRITCHARD MD Ot Z01.81 8 ENCOUNTER FOR OTHER PREPROCEDURAL EXAMIN 12/26/2018 RAMÓN PRITCHARD MD Ot Z01.81 8 ENCOUNTER FOR OTHER PREPROCEDURAL EXAMIN 12/26/2018 RAMÓN PRITCHARD MD Ot Z01.81 8 ENCOUNTER FOR OTHER PREPROCEDURAL EXAMIN 12/27/2018 RAMÓN PRITCHARD MD Ot Z01.81 8 ENCOUNTER FOR OTHER PREPROCEDURAL EXAMIN 12/27/2018 RAMÓN PRITCHARD MD Ot G47.30 SLEEP APNEA, UNSPECIFIED 12/27/2018 RAMÓN PRITCHARD MD Ot H91.90 UNSPECIFIED HEARING LOSS, UNSPECIFIED EA 12/27/2018 RAMÓN PRITCHARD MD Ot I10 ESSENTIAL (PRIMARY) HYPERTENSION 12/27/2018 RAMÓN PRITCHARD MD, Ot I25.10 ATHSCL HEART DISEASE OF [place] CORONARY 12/27/2018 RAMÓN PRITCHARD MD, Ot I71.4 [...] W/O PERFORATION OR AB 12/27/2018 RAMÓN PRITCHARD MD, Ot K62.5 HEMORRHAGE OF ANUS AND RECTUM 12/27/2018 RAMÓN PRITCHARD MD, Ot K64.1 SECOND DEGREE HEMORRHOIDS 12/27/2018 RAMÓN PRITCHARD MD Ot Z79.82 JOINT CUTTER MACHINE (CURRENT) USE OF ASPIRIN 12/27/2018 RAMÓN PRITCHARD MD, Ot Z79.89 9 OTHER JOINT CUTTER MACHINE (CURRENT) DRUG THERAPY 12/27/2018 RAMÓN PRITCHARD MD, Ot Z87.19 PERSONAL HISTORY OF OTHER DISEASES OF [place] 12/27/2018 RAMÓN PRITCHARD MD, Ot Z95.5 PRESENCE OF CORONARY ANGIOPLASTY IMPLANT 12/29/2018 KOURTNEY NANCE Ot I25.10 ATHSCL HEART DISEASE OF [place] CORONARY 12/29/2018 KOURTNEY NANCEP Ot R06.02 SHORTNESS OF BREATH 12/29/2018 KOURTNEY NANCEP Ot R42 DIZZINESS AND GIDDINESS 01/01/2019 RAMÓN PRITCHARD MD Ot G47.30 SLEEP APNEA, UNSPECIFIED 01/01/2019 RAMÓN PRITCHARD MD, Ot H91.90 UNSPECIFIED HEARING LOSS, UNSPECIFIED EA 01/01/2019 RAMÓN PRITCHARD MD Ot I10 ESSENTIAL (PRIMARY) HYPERTENSION 01/01/2019 RAMÓN PRITCHARD MD, Ot I25.10 ATHSCL HEART DISEASE OF [place] CORONARY 01/01/2019 RAMÓN PRITCHARD MD, Ot I71.4 [...] HEMORRHOIDS 01/01/2019 RAMÓN PRITCHARD MD, Ot Z79.82 HALFWAY (CURRENT) USE OF ASPIRIN 01/01/2019 RAMÓN PRITCHARD MD, Ot Z79.89 9 OTHER HALFWAY (CURRENT) DRUG THERAPY 01/01/2019 RAMÓN PRITCHARD MD, Ot Z87.19 PERSONAL HISTORY OF OTHER DISEASES OF TH 01/01/2019 RAMÓN PRITCHARD MD, Ot Z95.5 PRESENCE OF CORONARY ANGIOPLASTY IMPLANT 01/04/2019 DESHAWN ORDONEZ, EMILEE Pettit Ot G47.33 OBSTRUCTIVE [...] MD, Ot I25.10 ATHSCL HEART DISEASE OF [place] CORONARY 01/10/2019 RAMÓN PRITCHARD MD, Ot I71.4 [...] HEMORRHOIDS 01/10/2019 RAMÓN PRITCHARD MD, Ot Z79.82 JOINT CUTTER MACHINE (CURRENT) USE OF ASPIRIN 01/10/2019 RAMÓN PRITCHARD MD, Ot Z79.89 9 OTHER JOINT CUTTER MACHINE (CURRENT) DRUG THERAPY 01/10/2019 RAMÓN PRITCHARD MD, Ot Z87.19 PERSONAL HISTORY OF OTHER DISEASES OF 01/10/2019 RAMÓN PRITCHARD MD, Ot Z95.5 PRESENCE OF CORONARY ANGIOPLASTY IMPLANT 01/24/2019 EMILEE HESS MD Ot G47.33 OBSTRUCTIVE SLEEP APNEA (ADULT) (PEDIATR 01/25/2019 EMILEE HESS MD P Ot G47.33 OBSTRUCTIVE SLEEP APNEA (ADULT) (PEDIATR 01/25/2019 EMILEE HESS MD Ot R06.83 SNORING 01/26/2019 EMILEE HESS MD Ot G47.33 OBSTRUCTIVE SLEEP APNEA (ADULT) (PEDIATR 01/26/2019 EMILEE HESS MD P Ot R06.83 SNORING 02/07/2019 MARIIA BANEGAS MD Ot A08. 4 VIRAL INTESTINAL INFECTION, UNSPECIFIED 02/07/2019 MARIIA BANEGAS MD Ot G47. 30 SLEEP APNEA, UNSPECIFIED 02/07/2019 MARIIA BANEGAS MD Ot I10 ESSENTIAL (PRIMARY) HYPERTENSION 02/07/2019 MARIIA BANEGAS MD Ot R11. 2 NAUSEA WITH VOMITING, UNSPECIFIED 02/07/2019 MARIIA BANEGAS MD Ot R41. 0 DISORIENTATION, UNSPECIFIED 02/07/2019 MARIIA BANEGAS MD Ot Z79. 02 HALFWAY (CURRENT) USE OF ANTITHROMBOTI 02/07/2019 MARIIA BANEGAS MD Ot Z82. 49 FAMILY HX OF ISCHEM HEART DIS AND OTH DI 02/07/2019 MARIIA BANEGAS MD Ot Z87. 19 PERSONAL HISTORY OF OTHER DISEASES OF 02/07/2019 MARIIA BANEGAS MD Ot Z87.442 PERSONAL HISTORY OF URINARY CALCULI 02/07/2019 MARIIA BANEGAS MD Ot Z88. 0 ALLERGY STATUS TO PENICILLIN 02/07/2019 MARIIA BANEGAS MD Ot Z88. 8 ALLERGY STATUS TO OTH DRUG/MEDS/BIOL SUB 02/07/2019 MARIIA BANEGAS MD Ot Z91.041 RADIOGRAPHIC DYE ALLERGY STATUS 02/07/2019 MARIIA BANEGAS MD Ot Z95. 5 PRESENCE OF CORONARY ANGIOPLASTY IMPLANT 02/07/2019 MARIIA BANEGAS MD Ot Z98.890 OTHER SPECIFIED POSTPROCEDURAL STATES 02/09/2019 MARIIA BAENGAS MD Ot A08. 4 VIRAL INTESTINAL INFECTION, UNSPECIFIED 02/09/2019 MARIIA BANEGAS MD Ot G47. 30 SLEEP APNEA, UNSPECIFIED 02/09/2019 MARIIA BANEGAS MD Ot I10 ESSENTIAL (PRIMARY) HYPERTENSION 02/09/2019 MARIIA BANEGAS MD Ot R11. 2 NAUSEA WITH VOMITING, UNSPECIFIED 02/09/2019 MARIIA BANEGAS MD Ot R41. 0 DISORIENTATION, UNSPECIFIED 02/09/2019 MARIIA BANEGAS MD Ot Z79. 02 HALFWAY (CURRENT) USE OF ANTITHROMBOTI 02/09/2019 MARIIA BANEGAS MD Ot Z82. 49 FAMILY HX OF ISCHEM HEART DIS AND OTH DI 02/09/2019 MARIIA BANEGAS MD Ot Z87. 19 PERSONAL HISTORY OF OTHER DISEASES OF TH 02/09/2019 MARIIA BANEGAS MD Ot Z87.442 PERSONAL HISTORY OF URINARY CALCULI 02/09/2019 MARIIA BANEGAS MD Ot Z88. 0 ALLERGY STATUS TO PENICILLIN 02/09/2019 MARIIA BANEGAS MD Ot Z88. 8 ALLERGY STATUS TO OTH DRUG/MEDS/BIOL SUB 02/09/2019 MARIIA BANEGAS MD Ot Z91.041 RADIOGRAPHIC DYE ALLERGY STATUS 02/09/2019 MARIIA BANEGAS MD Ot Z95. 5 PRESENCE OF CORONARY ANGIOPLASTY IMPLANT 02/09/2019 MARIIA BANEGAS MD Ot Z98.890 OTHER SPECIFIED POSTPROCEDURAL STATES 02/12/2019 KOURTNEY NANCE CRITICAL CARE PHYSICIAN Ot R07.81 PLEURODYNIA 02/12/2019 KOURTNEY NANCEP Ot W19.XXXA UNSPECIFIED FALL, INITIAL ENCOUNTER 02/15/2019 KOURTNEY NANCEP Ot R07.81 PLEURODYNIA 02/15/2019 KOURTNEY NANCEP Ot W19.XXXA UNSPECIFIED FALL, INITIAL ENCOUNTER 02/20/2019 ESPERANZA ORDONEZ, LORENA Angelo Ot N28. 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 02/20/2019 SHAI BARAHONA PA-C Ot K57.30 DVRTCLOS OF LG INT W/O PERFORATION OR AB 02/20/2019 SHAI BARAHONA PA-C Ot K76.0 FATTY (CHANGE OF) LIVER, NOT ELSEWHERE C 02/20/2019 KOURTNEY NANCE Ot Z01.812 ENCOUNTER FOR PREPROCEDURAL LABORATORY E 02/20/2019 TIERRA DE MD Ot H91.93 UNSPECIFIED HEARING LOSS, BILATERAL 02/20/2019 TIERRA DE MD Ot R93.8 ABNORMAL FINDINGS ON DIAGNOSTIC IMAGING 02/20/2019 TIERRA DE MD, Ot H91.93 UNSPECIFIED HEARING LOSS, BILATERAL 02/20/2019 TIERRA DE MD Ot 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, NONRUPTURED 02/20/2019 DAPHNE BUTCHER MD Ot I1 0 ESSENTIAL (PRIMARY) HYPERTENSION 02/20/2019 DAPHNE BUTCHER MD Ot H91.10 PRESBYCUSIS, UNSPECIFIED EAR 02/20/2019 DAPHNE BUTCHER MD Ot I1 0 ESSENTIAL (PRIMARY) HYPERTENSION 02/20/2019 DAPHNE BUTCHER MD Ot I25.10 ATHSCL HEART DISEASE OF [place] CORONARY 02/20/2019 KOURTNEY NANCE Ot I25.10 ATHSCL HEART DISEASE OF [place] CORONARY 02/20/2019 KOURTNEY NANCE Ot R06.02 SHORTNESS OF BREATH 02/20/2019 KOURTNEY NANCE Ot R42 DIZZINESS AND GIDDINESS 02/20/2019 KOURTNEY NANCE Ot R07.81 PLEURODYNIA 02/20/2019 KOURTNEY NANCE Ot W19.XXXA UNSPECIFIED FALL, INITIAL ENCOUNTER 03/09/2019 KOURTNEY NANCE Ot 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, 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 03/14/2019 ESPERANZA ORDONEZ, LORENA Angelo Ot N28. 1 CYST OF KIDNEY, ACQUIRED 03/14/2019 SHAI BARAHONA PA-C Ot 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, 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 03/14/2019 SHAI BARAHONA PA-C Ot 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, 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 03/14/2019 SHAI BARAHONA PA-C Ot K57.30 DVRTCLOS OF LG INT W/O PERFORATION OR AB 03/14/2019 SHAI BARAHONA PA-C Ot K76.0 FATTY (CHANGE OF) LIVER, NOT ELSEWHERE C 03/14/2019 KOURTNEY NANCE Ot Z01.812 ENCOUNTER FOR PREPROCEDURAL LABORATORY E 03/14/2019 TIERRA DE MD Ot H91.93 UNSPECIFIED HEARING LOSS, BILATERAL 03/14/2019 TIERRA DE MD Ot R93.8 ABNORMAL FINDINGS ON DIAGNOSTIC IMAGING 03/14/2019 TIERRA DE MD Ot H91.93 UNSPECIFIED HEARING LOSS, BILATERAL 03/14/2019 TIERRA DE MD Ot 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, NONRUPTURED 03/14/2019 DAPHNE BUTCHER MD Ot I1 0 ESSENTIAL (PRIMARY) HYPERTENSION 03/14/2019 DAPHNE BUTCHER MD Ot H91.10 PRESBYCUSIS, UNSPECIFIED EAR 03/14/2019 DAPHNE BUTCHER MD Ot I1 0 ESSENTIAL (PRIMARY) HYPERTENSION 03/14/2019 DAPHNE BUTCHER MD Ot I25.10 ATHSCL HEART DISEASE OF [place] CORONARY 03/14/2019 KOURTNEY NANCE Ot I25.10 ATHSCL HEART DISEASE OF [place] CORONARY 03/14/2019 KOURTNEY NANCE Ot R06.02 SHORTNESS OF BREATH 03/14/2019 KOURTNEY NANCE Ot R42 DIZZINESS AND GIDDINESS 03/14/2019 KOURTNEY NANCE Ot R07.81 PLEURODYNIA 03/14/2019 KOURTNEY NANCE Ot W19.XXXA UNSPECIFIED FALL, INITIAL ENCOUNTER 03/14/2019 KOURTNEY NANCE Ot 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, 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 03/16/2019 KOURTNEY NANCE CRITICAL CARE PHYSICIAN Ot 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, 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 03/16/2019 KOURTNEY NANCE CRITICAL CARE PHYSICIAN Ot Z98.890 OTHER SPECIFIED POSTPROCEDURAL STATES 03/23/2019 SARA MARQUEZ Ot G47.30 SLEEP APNEA, UNSPECIFIED 03/23/2019 SARA MARQUEZ Ot I10 ESSENTIAL (PRIMARY) HYPERTENSION 03/23/2019 SARA MARQUEZ Ot R40.2142 COMA SCALE, EYES OPEN, SPONTANEOUS, EMR 03/23/2019 SARA MARQUEZ Ot R40.2252 COMA SCALE, BEST VERBAL RESPONSE, ORIENT 03/23/2019 SARA MARQUEZ Ot R40.2362 COMA SCALE, BEST MOTOR RESPONSE, OBEYS C 03/23/2019 SARA MARQUEZ Ot S01.00XA UNSPECIFIED OPEN WOUND OF SCALP, INITIAL 03/23/2019 SARA MARQUEZ Ot W22.09XA STRIKING AGAINST OTHER STATIONARY OBJECT 03/23/2019 SARA MARQUEZ Ot Z79.02 JOINT CUTTER MACHINE (CURRENT) USE OF ANTITHROMBOTI 03/23/2019 SARA MARQUEZ Ot Z79.51 HALFWAY (CURRENT) USE OF INHALED STERO 03/23/2019 SARA MARQUEZ Ot Z82.49 FAMILY HX OF ISCHEM HEART DIS AND OTH DI 03/23/2019 SARA MARQUEZ Ot Z87.19 PERSONAL HISTORY OF OTHER DISEASES OF 03/23/2019 SARA MARQUEZ Ot Z87.442 PERSONAL HISTORY OF URINARY CALCULI 03/23/2019 SARA MARQUEZ Ot Z88.1 ALLERGY STATUS TO OTHER ANTIBIOTIC AGENT 03/23/2019 SARA MARQUEZ Ot Z88.8 ALLERGY STATUS TO OT DRUG/MEDS/BIOL SUB 03/23/2019 SARA MARQUEZ Ot Z91.041 RADIOGRAPHIC DYE ALLERGY STATUS 03/23/2019 SARA MARQUEZ Ot Z95.5 PRESENCE OF CORONARY ANGIOPLASTY IMPLANT 03/23/2019 SARA MARQUEZ Ot Z98.890 OTHER SPECIFIED POSTPROCEDURAL STATES 03/27/2019 SARA MARQUEZ Ot G47.30 SLEEP APNEA, UNSPECIFIED 03/27/2019 SARA MARQUEZ Ot I10 ESSENTIAL (PRIMARY) HYPERTENSION 03/27/2019 SARA MARQUEZ Ot R40.2142 COMA SCALE, EYES OPEN, SPONTANEOUS, EMR 03/27/2019 SARA MARQUEZ Ot R40.2252 COMA SCALE, BEST VERBAL RESPONSE, ORIENT 03/27/2019 SARA MARQUEZ Ot R40.2362 COMA SCALE, BEST MOTOR RESPONSE, OBEYS C 03/27/2019 SARA MARQUEZ Ot S01.00XA UNSPECIFIED OPEN WOUND OF SCALP, INITIAL 03/27/2019 SARA MARQUEZ Ot W22.09XA STRIKING AGAINST OTHER STATIONARY OBJECT 03/27/2019 SARA MARQUEZ Ot Z79.02 JOINT CUTTER MACHINE (CURRENT) USE OF ANTITHROMBOTI 03/27/2019 SARA MARQUEZ Ot Z79.51 JOINT CUTTER MACHINE (CURRENT) USE OF INHALED STERO 03/27/2019 SARA MARQUEZ Ot Z82.49 FAMILY HX OF ISCHEM HEART DIS AND OTH DI 03/27/2019 SARA MARQUEZ Ot Z87.19 PERSONAL HISTORY OF OTHER DISEASES OF TH 03/27/2019 SARA MARQUEZ Ot Z87.442 PERSONAL HISTORY OF URINARY CALCULI 03/27/2019 SARA MARQUEZ Ot Z88.1 ALLERGY STATUS TO OTHER ANTIBIOTIC AGENT 03/27/2019 SARA MARQUEZ Ot Z88.8 ALLERGY STATUS TO OT DRUG/MEDS/BIOL SUB 03/27/2019 SARA MARQUEZ Ot Z91.041 RADIOGRAPHIC DYE ALLERGY STATUS 03/27/2019 SARA MARQUEZ Ot Z95.5 PRESENCE OF CORONARY ANGIOPLASTY IMPLANT 03/27/2019 SARA MARQUEZ Ot Z98.890 OTHER SPECIFIED POSTPROCEDURAL STATES 03/29/2019 SARA MARQUEZ Ot G47.30 SLEEP APNEA, UNSPECIFIED 03/29/2019 SARA MARQUEZ Ot I10 ESSENTIAL (PRIMARY) HYPERTENSION 03/29/2019 SARA MARQUEZ Ot R40.2142 COMA SCALE, EYES OPEN, SPONTANEOUS, EMR 03/29/2019 SARA MARQUEZ Ot R40.2252 COMA SCALE, BEST VERBAL RESPONSE, ORIENT 03/29/2019 SARA MARQUEZ Ot R40.2362 COMA SCALE, BEST MOTOR RESPONSE, OBEYS C 03/29/2019 SARA MARQUEZ Ot S01.00XA UNSPECIFIED OPEN WOUND OF SCALP, INITIAL 03/29/2019 SARA MARQUEZ Ot W22.09XA STRIKING AGAINST OTHER STATIONARY OBJECT 03/29/2019 MADI MARQUEZIS Ot Z79.02 HALFWAY (CURRENT) USE OF ANTITHROMBOTI 03/29/2019 SARA MARQUEZ Ot Z79.51 HALFWAY (CURRENT) USE OF INHALED STERO 03/29/2019 SARA MARQUEZ Ot Z82.49 FAMILY HX OF ISCHEM HEART DIS AND OTH DI 03/29/2019 JIMMYSARA Ot Z87.19 PERSONAL HISTORY OF OTHER DISEASES OF TH 03/29/2019 ANTONSARA CHRISTIANSON Ot Z87.442 PERSONAL HISTORY OF URINARY CALCULI 03/29/2019 SARA MARQUEZ Ot Z88.1 ALLERGY STATUS TO OTHER ANTIBIOTIC AGENT 03/29/2019 SARA MARQUEZ Ot Z88.8 ALLERGY STATUS TO OTH DRUG/MEDS/BIOL SUB 03/29/2019 SARA MARQUEZ Ot Z91.041 RADIOGRAPHIC DYE ALLERGY STATUS 03/29/2019 SARA MARQUEZ Ot Z95.5 PRESENCE OF CORONARY ANGIOPLASTY IMPLANT 03/29/2019 SARA MARQUEZ Ot Z98.890 OTHER SPECIFIED POSTPROCEDURAL STATES 04/06/2019 KOURTNEY NANCE CRITICAL CARE PHYSICIAN Ot 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, 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 04/06/2019 KOURTNEY NANCE CRITICAL CARE PHYSICIAN Ot Z98.890 OTHER SPECIFIED POSTPROCEDURAL STATES 04/13/2019 KOURTNEY NANCE CRITICAL CARE PHYSICIAN Ot 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, 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 04/13/2019 KOURTNEY NANCE CRITICAL CARE PHYSICIAN Ot Z98.890 OTHER SPECIFIED POSTPROCEDURAL STATES 04/14/2019 KATELYN MENDENHALL DOI Ot E78.5 HYPERLIPIDEMIA, UNSPECIFIED 04/14/2019 KATELYN MENDENHALL DOI Ot F32.9 MAJOR DEPRESSIVE DISORDER, SINGLE EPISOD 04/14/2019 KATELYN MENDENHALL DOI Ot G25.81 RESTLESS LEGS SYNDROME 04/14/2019 ZA GERBER SOLO Ot G47.00 INSOMNIA, UNSPECIFIED 04/14/2019 ZA GERBER SOLO Ot G47.33 OBSTRUCTIVE SLEEP APNEA (ADULT) (PEDIATR 04/14/2019 ZA GERBER SOLO Ot 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 04/14/2019 ZA GERBER SOLO Ot H54.3 UNQUALIFIED VISUAL LOSS, BOTH EYES 04/14/2019 ZA GERBER SOLO Ot H91.92 UNSPECIFIED HEARING LOSS, LEFT EAR 04/14/2019 SOLO MENDENHALL DO Ot I12.9 HYPERTENSIVE CHRONIC KIDNEY DISEASE W ST 04/14/2019 SOLO MENDENHALL DO Ot I25.10 ATHSCL HEART DISEASE OF [place] CORONARY 04/14/2019 SOLO MENDENHALL DO Ot I25.5 ISCHEMIC CARDIOMYOPATHY 04/14/2019 SOLO MENDENHALL DO Ot I48.0 PAROXYSMAL ATRIAL FIBRILLATION 04/14/2019 SOLO MENDENHALL DO Ot 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 04/14/2019 SOLO MENDENHALL DO Ot J44.9 CHRONIC OBSTRUCTIVE PULMONARY DISEASE, U 04/14/2019 SOLO MENDENHALL DO Ot N18.9 CHRONIC KIDNEY DISEASE, UNSPECIFIED 04/14/2019 SOLO MENDENHALL DO Ot N20.0 CALCULUS OF KIDNEY 04/14/2019 SOLO MENDENHALL DO Ot R26.81 UNSTEADINESS ON FEET 04/14/2019 SOLO MENDENHALL DO Ot R29.6 REPEATED FALLS 04/14/2019 SOLO MENDENHALL DO Ot Z79.01 JOINT CUTTER MACHINE (CURRENT) USE OF ANTICOAGULANT 04/14/2019 SOLO MENDENHALL DO Ot Z87.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 04/14/2019 SOLO MENDENHALL DO Ot Z95.1 PRESENCE OF AORTOCORONARY BYPASS GRAFT 04/14/2019 SOLO MENDENHALL DO Ot Z95.5 PRESENCE OF CORONARY ANGIOPLASTY IMPLANT 04/14/2019 SOLO MENDENHALL DO Ot Z97.4 PRESENCE OF EXTERNAL HEARING-AID 04/14/2019 SOLO MENDENHALL DO Ot Z98.2 PRESENCE OF CEREBROSPINAL FLUID DRAINAGE 05/21/2019 GARCIA KRAFT LIABILITY CLAIMS ADJUSTER Ot I1 0 ESSENTIAL (PRIMARY) HYPERTENSION 05/21/2019 GARCIA KRAFT LIABILITY CLAIMS ADJUSTER Ot 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, 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 05/21/2019 GARCIA KRAFT LIABILITY CLAIMS ADJUSTER Ot I73.9 PERIPHERAL VASCULAR DISEASE, UNSPECIFIED 05/21/2019 MARIIA BANEGAS MD Ot E78. 00 PURE HYPERCHOLESTEROLEMIA, UNSPECIFIED 05/21/2019 MARIIA BANEGAS MD Ot F32. 9 MAJOR DEPRESSIVE DISORDER, SINGLE EPISOD 05/21/2019 MARIIA BANEGAS MD Ot G47. 30 SLEEP APNEA, UNSPECIFIED 05/21/2019 MARIIA BANEGAS MD Ot I10 ESSENTIAL (PRIMARY) HYPERTENSION 05/21/2019 MARIIA BANEGAS MD Ot I25. 10 ATHSCL HEART DISEASE OF [place] CORONARY 05/21/2019 MARIIA BANEGAS MD Ot I42. 9 CARDIOMYOPATHY, UNSPECIFIED 05/21/2019 MARIIA BANEGAS MD Ot I48. 91 UNSPECIFIED ATRIAL FIBRILLATION 05/21/2019 MARIIA BANEGAS MD Ot I73. 9 PERIPHERAL VASCULAR DISEASE, UNSPECIFIED 05/21/2019 MARIIA BANEGAS MD Ot R04. 0 EPISTAXIS 05/21/2019 MARIIA BANEGAS MD Ot Z79. 01 JOINT CUTTER MACHINE (CURRENT) USE OF ANTICOAGULANT 05/21/2019 MARIIA BANEGAS MD Ot Z79. 51 HALFWAY (CURRENT) USE OF INHALED STERO 05/21/2019 MARIIA BANEGAS MD Ot Z79. 82 JOINT CUTTER MACHINE (CURRENT) USE OF ASPIRIN 05/21/2019 MARIIA BANEGAS MD Ot Z82. 49 FAMILY HX OF ISCHEM HEART DIS AND OTH DI 05/21/2019 MARIIA BANEGAS MD Ot Z87.442 PERSONAL HISTORY OF URINARY CALCULI 05/21/2019 MARIIA BANEGAS MD Ot Z88. 1 ALLERGY STATUS TO OTHER ANTIBIOTIC AGENT 05/21/2019 MARIIA BANEGAS MD Ot Z91.041 RADIOGRAPHIC DYE ALLERGY STATUS 05/21/2019 MARIIA BANEGAS MD Ot Z95. 5 PRESENCE OF CORONARY ANGIOPLASTY IMPLANT 05/21/2019 MARIIA BANEGAS MD Ot Z98.890 OTHER SPECIFIED POSTPROCEDURAL STATES 05/23/2019 CORY SIMS MD Ot G91 .1 OBSTRUCTIVE HYDROCEPHALUS 05/23/2019 CORY SIMS MD Ot I72 .5 ANEURYSM OF OTHER PRECEREBRAL ARTERIES 05/23/2019 CORY SIMS MD Ot R29 .6 REPEATED FALLS 05/24/2019 GARCIA KRAFT APRN Ot I1 0 ESSENTIAL (PRIMARY) HYPERTENSION 05/24/2019 GARCIA KRAFT APRN Ot 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, 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 05/24/2019 GARCIA KRAFT APRN Ot I73.9 PERIPHERAL VASCULAR DISEASE, UNSPECIFIED 05/24/2019 CORY SIMS MD Ot G91 .1 OBSTRUCTIVE HYDROCEPHALUS 05/24/2019 CORY SIMS MD Ot I72 .5 ANEURYSM OF OTHER PRECEREBRAL ARTERIES 05/24/2019 CORY SIMS MD Ot R29 .6 REPEATED FALLS 05/26/2019 MARIIA BANEGAS MD Ot E78. 00 PURE HYPERCHOLESTEROLEMIA, UNSPECIFIED 05/26/2019 MARIIA BANEGAS MD Ot F32. 9 MAJOR DEPRESSIVE DISORDER, SINGLE EPISOD 05/26/2019 MARIIA BANEGAS MD Ot G47. 30 SLEEP APNEA, UNSPECIFIED 05/26/2019 MARIIA BANEGAS MD Ot I10 ESSENTIAL (PRIMARY) HYPERTENSION 05/26/2019 MARIIA BANEGAS MD Ot I25. 10 ATHSCL HEART DISEASE OF [place] CORONARY 05/26/2019 MARIIA BANEGAS MD Ot I42. 9 CARDIOMYOPATHY, UNSPECIFIED 05/26/2019 MARIIA BANEGAS MD Ot I48. 91 UNSPECIFIED ATRIAL FIBRILLATION 05/26/2019 MARIIA BANEGAS MD Ot I73. 9 PERIPHERAL VASCULAR DISEASE, UNSPECIFIED 05/26/2019 MARIIA BANEGAS MD Ot R04. 0 EPISTAXIS 05/26/2019 MARIIA BANEGAS MD Ot Z79. 01 HALFWAY (CURRENT) USE OF ANTICOAGULANT 05/26/2019 MARIIA BANEGAS MD Ot Z79. 51 JOINT CUTTER MACHINE (CURRENT) USE OF INHALED STERO 05/26/2019 MARIIA BANEGAS MD Ot Z79. 82 JOINT CUTTER MACHINE (CURRENT) USE OF ASPIRIN 05/26/2019 MARIIA BANEGAS MD Ot Z82. 49 FAMILY HX OF ISCHEM HEART DIS AND OTH DI 05/26/2019 MARIIA BANEGAS MD Ot Z87.442 PERSONAL HISTORY OF URINARY CALCULI 05/26/2019 MARIIA BANEGAS MD Ot Z88. 1 ALLERGY STATUS TO OTHER ANTIBIOTIC AGENT 05/26/2019 MARIIA BANEGAS MD Ot Z91.041 RADIOGRAPHIC DYE ALLERGY STATUS 05/26/2019 MARIIA BANEGAS MD Ot Z95. 5 PRESENCE OF CORONARY ANGIOPLASTY IMPLANT 05/26/2019 MARIIA BANEGAS MD Ot Z98.890 OTHER SPECIFIED POSTPROCEDURAL STATES 05/26/2019 EMILEE HESS MD Ot E78.00 PURE HYPERCHOLESTEROLEMIA, UNSPECIFIED 05/26/2019 EMILEE HESS MD Ot F32 .9 MAJOR DEPRESSIVE DISORDER, SINGLE EPISOD 05/26/2019 EMILEE HESS MD Ot G47.30 SLEEP APNEA, UNSPECIFIED 05/26/2019 EMILEE HESS MD Ot G91 .2 (IDIOPATHIC) NORMAL PRESSURE HYDROCEPHAL 05/26/2019 EMILEE HESS MD Ot I10 ESSENTIAL (PRIMARY) HYPERTENSION 05/26/2019 EMILEE HESS MD Ot I25.10 ATHSCL HEART DISEASE OF [place] CORONARY 05/26/2019 EMILEE HESS MD Ot I42 .9 CARDIOMYOPATHY, UNSPECIFIED 05/26/2019 EMILEE HESS MD Ot I48.91 UNSPECIFIED ATRIAL FIBRILLATION 05/26/2019 EMILEE HESS MD Ot I67 .1 CEREBRAL ANEURYSM, NONRUPTURED 05/26/2019 EMILEE HESS MD Ot R04 .0 EPISTAXIS 05/26/2019 EMILEE HESS MD Ot Z79.01 JOINT CUTTER MACHINE (CURRENT) USE OF ANTICOAGULANT 05/26/2019 EMILEE HESS MD Ot Z87.891 PERSONAL HISTORY OF NICOTINE DEPENDENCE 05/26/2019 EMILEE HESS MD Ot Z95 .5 PRESENCE OF CORONARY ANGIOPLASTY IMPLANT 05/26/2019 EMILEE HESS MD Ot Z98 .2 PRESENCE OF CEREBROSPINAL FLUID DRAINAGE 05/28/2019 CORY SIMS MD Ot G91 .1 OBSTRUCTIVE HYDROCEPHALUS 05/28/2019 CORY SIMS MD Ot I72 .5 ANEURYSM OF OTHER PRECEREBRAL ARTERIES 05/28/2019 CORY SIMS MD Ot R29 .6 REPEATED FALLS 06/08/2019 DAPHNE BUTCHER MD Ot R33.9 RETENTION OF URINE, UNSPECIFIED 06/12/2019 DAPHNE BUTCHER MD Ot R33.9 RETENTION OF URINE, UNSPECIFIED 06/12/2019 GARCIA KRAFT APRN Ot R33.9 RETENTION OF URINE, UNSPECIFIED 06/12/2019 DAPHNE BUTCHER MD Ot R33.9 RETENTION OF URINE, UNSPECIFIED 06/13/2019 CORY SIMS MD Ot G91 .1 OBSTRUCTIVE HYDROCEPHALUS 06/13/2019 CORY SIMS MD Ot I72 .5 ANEURYSM OF OTHER PRECEREBRAL ARTERIES 06/13/2019 CORY SIMS MD Ot R29 .6 REPEATED FALLS 06/21/2019 CORY SIMS MD Ot G91 .1 OBSTRUCTIVE HYDROCEPHALUS 06/21/2019 CORY SIMS MD Ot I72 .5 ANEURYSM OF OTHER PRECEREBRAL ARTERIES 06/21/2019 LEVI ORDONEZ, CORY Spicer Ot R29 .6 REPEATED FALLS 06/27/2019 GARCIA KRAFT APRN Ot R33.9 RETENTION OF URINE, UNSPECIFIED 07/09/2019 SOLO MENDENHALL DO Ot F32.9 MAJOR DEPRESSIVE DISORDER, SINGLE EPISOD 07/09/2019 SOLO MENDENHALL DO Ot G47.30 SLEEP APNEA, UNSPECIFIED 07/09/2019 SOLO MENDENHALL DO Ot G91.9 HYDROCEPHALUS, UNSPECIFIED 07/09/2019 SOLO MENDENHALL DO Ot 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, W S 07/09/2019 SOLO MENDENHALL DO Ot I25.10 ATHSCL HEART DISEASE OF [place] CORONARY 07/09/2019 SOLO MENDENHALL DO Ot I48.91 UNSPECIFIED ATRIAL FIBRILLATION 07/09/2019 SOLO MENDENHALL DO Ot J30.9 ALLERGIC RHINITIS, UNSPECIFIED 07/09/2019 SOLO MENDENHALL DO Ot J44.9 CHRONIC OBSTRUCTIVE PULMONARY DISEASE, U 07/09/2019 SOLO MENDENHALL DO Ot M19.90 UNSPECIFIED OSTEOARTHRITIS, UNSPECIFIED 07/09/2019 SOLO MENDENHALL DO Ot N18.9 CHRONIC KIDNEY DISEASE, UNSPECIFIED 07/09/2019 SOLO MENDENHALL DO Ot R29.6 REPEATED FALLS 07/09/2019 SOLO MENDENHALL DO Ot R42 DIZZINESS AND GIDDINESS 07/09/2019 SOLO MENDENHALL DO Ot Z79.01 JOINT CUTTER MACHINE (CURRENT) USE OF ANTICOAGULANT 07/09/2019 SOLO MENDENHALL DO Ot Z79.82 JOINT CUTTER MACHINE (CURRENT) USE OF ASPIRIN 07/09/2019 SOLO MENDENHALL DO Ot Z79.89 1 JOINT CUTTER MACHINE (CURRENT) USE OF OPIATE ANALGE 07/09/2019 SOLO MENDENHALL DO Ot Z79.89 9 OTHER JOINT CUTTER MACHINE (CURRENT) DRUG THERAPY 07/09/2019 SOLO MENDENHALL DO Ot Z87.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 07/09/2019 SOLO MENDENHALL DO Ot Z88.1 ALLERGY STATUS TO OTHER ANTIBIOTIC AGENT 07/09/2019 SOLO MENDENHALL DO Ot Z88.8 ALLERGY STATUS TO OTH DRUG/MEDS/BIOL SUB 07/09/2019 SOLO MENDENHALL DO Ot Z91.04 1 RADIOGRAPHIC DYE ALLERGY STATUS 07/09/2019 SOLO MENDENHALL DO Ot Z95.1 PRESENCE OF AORTOCORONARY BYPASS GRAFT 07/09/2019 SOLO MENDENHALL DO Ot Z95.5 PRESENCE OF CORONARY ANGIOPLASTY IMPLANT 08/21/2019 GARCIA KRAFT LIABILITY CLAIMS ADJUSTER Ot K22.8 OTHER SPECIFIED DISEASES OF ESOPHAGUS 08/21/2019 GARCIA KRAFT LIABILITY CLAIMS ADJUSTER Ot K44.9 DIAPHRAGMATIC HERNIA WITHOUT OBSTRUCTION 08/21/2019 GARCIA KRAFT LIABILITY CLAIMS ADJUSTER Ot K22.8 OTHER SPECIFIED DISEASES OF ESOPHAGUS 08/21/2019 GARCIA KRAFT LIABILITY CLAIMS ADJUSTER Ot K44.9 DIAPHRAGMATIC HERNIA WITHOUT OBSTRUCTION 09/11/2019 GARCIA KRAFT LIABILITY CLAIMS ADJUSTER Ot K22.8 OTHER SPECIFIED DISEASES OF ESOPHAGUS 09/11/2019 GARCIA KRAFT LIABILITY CLAIMS ADJUSTER Ot K44.9 DIAPHRAGMATIC HERNIA WITHOUT OBSTRUCTION 09/12/2019 GARCIA KRAFT LIABILITY CLAIMS ADJUSTER Ot K22.8 OTHER SPECIFIED DISEASES OF ESOPHAGUS 09/12/2019 GARCIA KRAFT LIABILITY CLAIMS ADJUSTER Ot K44.9 DIAPHRAGMATIC HERNIA WITHOUT OBSTRUCTION 09/12/2019 KHLOE ROA APRN Ot E78.00 PURE HYPERCHOLESTEROLEMIA, UNSPECIFIED 09/12/2019 KHLOE ROA APRN Ot F32 .9 MAJOR DEPRESSIVE DISORDER, SINGLE EPISOD 09/12/2019 KHLOE ROA APRN Ot G47.30 SLEEP APNEA, UNSPECIFIED 09/12/2019 KHLOE ROA APRN Ot I10 ESSENTIAL (PRIMARY) HYPERTENSION 09/12/2019 KHLOE ROA APRN Ot I25.10 ATHSCL HEART DISEASE OF [place] CORONARY 09/12/2019 KHLOE ROA APRN Ot I48.91 UNSPECIFIED ATRIAL FIBRILLATION 09/12/2019 KHLOE ROA APRN Ot I62 .9 NONTRAUMATIC INTRACRANIAL HEMORRHAGE, UN 09/12/2019 KHLOE ROA APRN Ot M10 .9 GOUT, UNSPECIFIED 09/12/2019 KHLOE ROA APRN Ot R50 .9 FEVER, UNSPECIFIED 09/12/2019 KHLOE ROA APRN Ot Z79.01 JOINT CUTTER MACHINE (CURRENT) USE OF ANTICOAGULANT 09/12/2019 KHLOE ROA APRN Ot Z79.51 JOINT CUTTER MACHINE (CURRENT) USE OF INHALED STERO 09/12/2019 KHLOE ROA APRN Ot Z79.82 JOINT CUTTER MACHINE (CURRENT) USE OF ASPIRIN 09/12/2019 KHLOE ROA APRN Ot Z82.49 FAMILY HX OF ISCHE[place] HEART DIS AND OTH DI 09/12/2019 KHLOE ROA APRN Ot Z87.442 PERSONAL HISTORY OF URINARY CALCULI 09/12/2019 KHLOE ROA APRN Ot Z87.891 PERSONAL HISTORY OF NICOTINE DEPENDENCE 09/12/2019 KHLOE ROA APRN Ot Z88 .0 ALLERGY STATUS TO PENICILLIN 09/12/2019 KHLOE ROA APRN Ot Z88 .1 ALLERGY STATUS TO OTHER ANTIBIOTIC AGENT 09/12/2019 KHLOE ROA APRN Ot Z91.041 RADIOGRAPHIC DYE ALLERGY STATUS 09/12/2019 KHLOE ROA APRN Ot Z95 .5 PRESENCE OF CORONARY ANGIOPLASTY IMPLANT 09/12/2019 KHLOE ROA APRN Ot Z99.89 DEPENDENCE ON OTHER ENABLING MACHINES AN 09/14/2019 KHLOE ROA APRN Ot E78.00 PURE HYPERCHOLESTEROLEMIA, UNSPECIFIED 09/14/2019 KHLOE ROA APRN Ot F32 .9 MAJOR DEPRESSIVE DISORDER, SINGLE EPISOD 09/14/2019 KHLOE ROA APRN Ot G47.30 SLEEP APNEA, UNSPECIFIED 09/14/2019 KHLOE ROA APRN Ot I10 ESSENTIAL (PRIMARY) HYPERTENSION 09/14/2019 KHLOE ROA APRN Ot I25.10 ATHSCL HEART DISEASE OF [place] CORONARY 09/14/2019 KHLOE ROA APRN Ot I48.91 UNSPECIFIED ATRIAL FIBRILLATION 09/14/2019 KHLOE ROA APRN Ot I62 .9 NONTRAUMATIC INTRACRANIAL HEMORRHAGE, UN 09/14/2019 KHLOE ROA APRN Ot M10 .9 GOUT, UNSPECIFIED 09/14/2019 KHLOE ROA APRN Ot R50 .9 FEVER, UNSPECIFIED 09/14/2019 KHLOE ROA APRN Ot Z79.01 HALFWAY (CURRENT) USE OF ANTICOAGULANT 09/14/2019 KHLOE ROA APRN Ot Z79.51 HALFWAY (CURRENT) USE OF INHALED STERO 09/14/2019 KHLOE ROA APRN Ot Z79.82 JOINT CUTTER MACHINE (CURRENT) USE OF ASPIRIN 09/14/2019 KHLOE ROA APRN Ot Z82.49 FAMILY HX OF I[place]HE[place] HEART DIS AND OTH DI 09/14/2019 KHLOE ROA APRN Ot Z87.442 PERSONAL HISTORY OF URINARY CALCULI 09/14/2019 KHLOE ROA LIABILITY CLAIMS ADJUSTER Ot Z87.891 PERSONAL HISTORY OF NICOTINE DEPENDENCE 09/14/2019 KHLOE ROA LIABILITY CLAIMS ADJUSTER Ot Z88 .0 ALLERGY STATUS TO PENICILLIN 09/14/2019 KHLOE ROA LIABILITY CLAIMS ADJUSTER Ot Z88 .1 ALLERGY STATUS TO OTHER ANTIBIOTIC AGENT 09/14/2019 KHLOE ROA LIABILITY CLAIMS ADJUSTER Ot Z91.041 RADIOGRAPHIC DYE ALLERGY STATUS 09/14/2019 KHLOE ROA LIABILITY CLAIMS ADJUSTER Ot Z95 .5 PRESENCE OF CORONARY ANGIOPLASTY IMPLANT 09/14/2019 KHLOE ROA LIABILITY CLAIMS ADJUSTER Ot Z99.89 DEPENDENCE ON OTHER ENABLING MACHINES AN 10/01/2019 ZA GERBER SOLO Ot E78.5 HYPERLIPIDEMIA, UNSPECIFIED 10/01/2019 ZA GERBER SOLO Ot F17.21 0 NICOTINE DEPENDENCE, CIGARETTES, UNCOMPL 10/01/2019 ZA GERBER SOLO Ot F32.9 MAJOR DEPRESSIVE DISORDER, SINGLE EPISOD 10/01/2019 ZA GERBER SOLO Ot G47.33 OBSTRUCTIVE SLEEP APNEA (ADULT) (PEDIATR 10/01/2019 ZA GERBER SOLO Ot 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 10/01/2019 ZA GERBER SOLO Ot H91.93 UNSPECIFIED HEARING LOSS, BILATERAL 10/01/2019 ZA GERBER SOLO Ot I10 ESSENTIAL (PRIMARY) HYPERTENSION 10/01/2019 ZA GERBER SOLO Ot I13.0 HYP HRT CHR KDNY DIS W HRT FAIL AND ST 10/01/2019 ZA GERBER SOLO Ot I25.10 ATHSCL HEART DISEASE OF [place] CORONARY 10/01/2019 ZA GERBER SOLO Ot I25.5 ISCHEMIC CARDIOMYOPATHY 10/01/2019 ZA GERBER SOLO Ot I48.0 PAROXYSMAL ATRIAL FIBRILLATION 10/01/2019 ZA GERBER SOLO Ot I50.30 UNSPECIFIED DIASTOLIC (CONGESTIVE) HEART 10/01/2019 ZA GERBER SOLO Ot 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, NONRUPTURED 10/01/2019 ZA GERBER SOLO Ot 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, 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 10/01/2019 ZA GERBER SOLO Ot I95.9 HYPOTENSION, UNSPECIFIED 10/01/2019 ZA GERBER SOLO Ot J44.9 CHRONIC OBSTRUCTIVE PULMONARY DISEASE, U 10/01/2019 MENDENHALL DO, SOLO Ot M10.9 GOUT, UNSPECIFIED 10/01/2019 MENDENHALL DO, SOLO Ot M19.91 PRIMARY OSTEOARTHRITIS, UNSPECIFIED SITE 10/01/2019 MENDENHALL DO, SOLO Ot N18.9 CHRONIC KIDNEY DISEASE, UNSPECIFIED 10/01/2019 MENDENHALL DO, SOLO Ot N39.0 URINARY TRACT INFECTION, SITE NOT SPECIF 10/01/2019 MENDENHALL DO, SOLO Ot 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 10/01/2019 MENDENHALL DO, SOLO Ot N47.2 PARAPHIMOSIS 10/01/2019 MENDENHALL DO, SOLO Ot R09.02 HYPOXEMIA 10/01/2019 MENDENHALL DO, SOLO Ot R29.6 REPEATED FALLS 10/01/2019 MENDENHALL DO, SOLO Ot R33.9 RETENTION OF URINE, UNSPECIFIED 10/01/2019 MENDENHALL DO, SOLO Ot R42 DIZZINESS AND GIDDINESS 10/01/2019 MENDENHALL DO, SOLO Ot R53.1 WEAKNESS 10/01/2019 MENDENHALL DO, SOLO Ot 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, 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 10/01/2019 MENDENHALL DO, SOLO Ot Z95.5 PRESENCE OF CORONARY ANGIOPLASTY IMPLANT 10/01/2019 MENDENHALL DO, SOLO Ot Z97.4 PRESENCE OF EXTERNAL HEARING-AID 10/01/2019 MENDENHALL DO, SOLO Ot Z98.2 PRESENCE OF CEREBROSPINAL FLUID DRAINAGE 11/03/2019 CHING ORDONEZ, GEO Morgan Ot E78.00 PURE HYPERCHOLESTEROLEMIA, UNSPECIFIED 11/03/2019 GEO FLOWER MD Ot F32.9 MAJOR DEPRESSIVE DISORDER, SINGLE EPISOD 11/03/2019 CHING ORDONEZ, GEO Morgan Ot G47.30 SLEEP APNEA, UNSPECIFIED 11/03/2019 GEO FLOWER MD Ot I12.9 HYPERTENSIVE CHRONIC KIDNEY DISEASE W ST 11/03/2019 GEO FLOWER MD Ot I25.10 ATHSCL HEART DISEASE OF [place] CORONARY 11/03/2019 CHING ORDONEZ, GEO Morgan Ot I48.91 UNSPECIFIED ATRIAL FIBRILLATION 11/03/2019 GEO FLOWER MD Ot M10.9 GOUT, UNSPECIFIED 11/03/2019 GEO FLOWER MD, Ot N18.9 CHRONIC KIDNEY DISEASE, UNSPECIFIED 11/03/2019 GEO FLOWER MD, Ot S09.90XA UNSPECIFIED INJURY OF HEAD, INITIAL ENCO 11/03/2019 GEO FLOWER MD, Ot W07.XXXA FALL FROM CHAIR, INITIAL ENCOUNTER 11/03/2019 GEO FLOWER MD, Ot Z79.51 JOINT CUTTER MACHINE (CURRENT) USE OF INHALED STERO 11/03/2019 GEO FLOWER MD, Ot Z79.82 HALFWAY (CURRENT) USE OF ASPIRIN 11/03/2019 GEO FLOWER MD, Ot Z82.49 FAMILY HX OF ISCHEM HEART DIS AND OTH DI 11/03/2019 GEO FLOWER MD, Ot Z87.442 PERSONAL HISTORY OF URINARY CALCULI 11/03/2019 GEO FLOWER MD, Ot Z88.0 ALLERGY STATUS TO PENICILLIN 11/03/2019 GEO FLOWER MD, Ot Z88.1 ALLERGY STATUS TO OTHER ANTIBIOTIC AGENT 11/03/2019 GEO FLOWER MD, Ot Z91.041 RADIOGRAPHIC DYE ALLERGY STATUS 11/03/2019 GEO FLOWER MD, Ot Z95.5 PRESENCE OF CORONARY ANGIOPLASTY IMPLANT 11/03/2019 GEO FLOWER MD, Ot Z99.89 DEPENDENCE ON OTHER ENABLING MACHINES AN 11/07/2019 GEO FLOWER MD, Ot E78.00 PURE HYPERCHOLESTEROLEMIA, UNSPECIFIED 11/07/2019 GEO FLOWER MD, Ot F32.9 MAJOR DEPRESSIVE DISORDER, SINGLE EPISOD 11/07/2019 GEO FLOWER MD, Ot G47.30 SLEEP APNEA, UNSPECIFIED 11/07/2019 GEO FLOWER MD, Ot I12.9 HYPERTENSIVE CHRONIC KIDNEY DISEASE W ST 11/07/2019 GEO FLOWER MD, Ot I25.10 ATHSCL HEART DISEASE OF [place] CORONARY 11/07/2019 GEO FLOWER MD, Ot I48.91 UNSPECIFIED ATRIAL FIBRILLATION 11/07/2019 GEO FLOWER MD, Ot M10.9 GOUT, UNSPECIFIED 11/07/2019 GEO FLOWER MD, Ot N18.9 CHRONIC KIDNEY DISEASE, UNSPECIFIED 11/07/2019 GEO FLOWER MD, Ot S09.90XA UNSPECIFIED INJURY OF HEAD, INITIAL ENCO 11/07/2019 GEO FLOWER MD, Ot W07.XXXA FALL FROM CHAIR, INITIAL ENCOUNTER 11/07/2019 GEO FLOWER MD, Ot Z79.51 HALFWAY (CURRENT) USE OF INHALED STERO 11/07/2019 GEO FLOWER MD, Ot Z79.82 JOINT CUTTER MACHINE (CURRENT) USE OF ASPIRIN 11/07/2019 GEO FLOWER MD, Ot Z82.49 FAMILY HX OF ISCHEM HEART DIS AND OTH DI 11/07/2019 GEO FLOWER MD, Ot Z87.442 PERSONAL HISTORY OF URINARY CALCULI 11/07/2019 GEO FLOWER MD, Ot Z88.0 ALLERGY STATUS TO PENICILLIN 11/07/2019 GEO FLOWER MD, Ot Z88.1 ALLERGY STATUS TO OTHER ANTIBIOTIC AGENT 11/07/2019 GEO FLOWER MD, Ot Z91.041 RADIOGRAPHIC DYE ALLERGY STATUS 11/07/2019 GEO FLOWER MD, Ot Z95.5 PRESENCE OF CORONARY ANGIOPLASTY IMPLANT 11/07/2019 GEO FLOWER MD, Ot Z99.89 DEPENDENCE ON OTHER ENABLING MACHINES AN Procedures Code Description [place] [id number] Offi ce or other outpatient visit for the evaluation and management of an established patient, which Nael White 08/19/2016 [id number] Offi ce or other outpatient visit for the evaluation and management of an established patient, which Nael White 09/20/2016 [id number] [facility]ORRIE KEYS 02/23/2017 [id number] IN SPECTION OF UPPER INTESTINAL TRACT, Erick Arevalo MD 04/30/2018 [id number] IN SPECTION OF LOWER INTESTINAL TRACT, Erick Arevalo MD 04/30/2018 [id number] SISTANCE WITH RESPIRATORY VENTILATION, 24-96 HRS Kirit Shahid MD 04/30/2018 [id number] Offi ce or other outpatient visit for the evaluation and management of an established patient, which LORENA MATA I 08/01/2018 [id number] Offi ce or other outpatient visit for the evaluation and management of an established patient, which LORENA MATA I 08/24/2018 [id number] NTROL BLEEDING IN NASAL MUCOSA AND SOF 05/25/2019 Results Test Result Range CBC W/DIFF - 11/17/15 12:00 EOSINOPHIL # 0.2 k/cumm 0.1-0.5 EOSINOPHIL % 3 % 2-4 GRANULOCYTE # 3.4 k/cumm 2.0-9.0 GRANULOCYTE % 57 % 50-75 LYMPHOCYTE # 1.9 k/cumm 1.0-4.0 LYMPHOCYTE % 32 % 20-30 MEAN CELL HGB 29.5 pg 27.0-33.0 MEAN CELL HGB CONCENTRATION 34.4 g/dL 32 .0-37.0 MEAN CELL VOLUME 85.6 fl 80.0-100.0 MONOCYTE # 0.5 k/cumm 0.1-1.0 MONOCYTE % 8 % 4-6 RED BLOOD CELL 4.99 m/cumm 4.00-6.00 RED CELL DISTRIBUTION WIDTH 14.4 % 11 .0-15.6 WHITE BLOOD CELL 6.0 k/cumm 5.0-10.0 HEMOGLOBIN [...] DIPSTICK 1+ NEGATIVE UA UROBILINOGEN DIPSTICK NORMAL GUNNER L UA BILIRUBIN DIPSTICK NEGATIVE NEGATIVE UA BLOOD DIPSTICK 4+ NEGATIVE UA SPECIFIC GRAVITY 1.015 1.015-1.02 5 UR PH 5.0 5.0-7.0 UA MICROSCOPIC - 11/17/15 22:45 UA BACTERIA 1+ NEGATIVE UA MUCUS 1+ NEG TO 1+ UA RBC 50-100 rbc/hpf 0 - 3 UA VOLUME FOR EXAM 12.0 mL (12mL STD) UA WBC 2-5 wbc/hpf 0 - 5 CBC - 11/18/15 05:03 MEAN CELL HGB 29.3 pg 27.0-33.0 MEAN CELL HGB CONCENTRATION 32.9 g/dL 32 .0-37.0 MEAN CELL VOLUME 89.2 fl 80.0-100.0 RED BLOOD CELL 3.34 m/cumm 4.00-6.00 RED CELL DISTRIBUTION WIDTH 14.4 % 11 .0-15.6 WHITE BLOOD CELL 9.9 k/cumm 5.0-10.0 HEMOGLOBIN [...] CARBON DIOXIDE 23 mmol/L 21-32 CBC - 02/03/16 06:59 MEAN CELL HGB 29.8 pg 27.0-33.0 MEAN CELL HGB CONCENTRATION 33.3 g/dL 32 .0-37.0 MEAN CELL VOLUME 89.3 fl 80.0-100.0 RED BLOOD CELL 3.19 m/cumm 4.00-6.00 RED CELL DISTRIBUTION WIDTH 14.3 % 11 .0-15.6 WHITE BLOOD CELL 11.3 k/cumm 5.0-10.0 HEMOGLOBIN [...] RT BRACH MRSA SURVEILLANCE SCREEN - 11/29/15 15:5 3 Microbiology CBC - 11/30/15 04:36 MEAN CELL HGB 28.9 pg 27.0-33.0 MEAN CELL HGB CONCENTRATION 32.7 g/dL 32 .0-37.0 MEAN CELL VOLUME 88.2 fl 80.0-100.0 RED BLOOD CELL 3.57 m/cumm 4.00-6.00 RED CELL DISTRIBUTION WIDTH 15.0 % 11 .0-15.6 WHITE BLOOD CELL 7.9 k/cumm 5.0-10.0 HEMOGLOBIN [...] mg/dL 2.5-4.9 CREATINE KINASE (CK/CPK) - 11/30/15 04:3 6 CREATINE KINASE (CK/CPK) 53 Units/L < 30 9 MAGNESIUM - 11/30/15 04:36 MAGNESIUM 1.9 mg/dL [...] 27.0-33.0 MEAN CELL HGB CONCENTRATION 32.9 g/dL 32 .0-37.0 MEAN CELL VOLUME 87.8 fl 80.0-100.0 RED BLOOD CELL 3.53 m/cumm 4.00-6.00 RED CELL DISTRIBUTION WIDTH 14.9 % 11 .0-15.6 WHITE BLOOD CELL 8.9 k/cumm 5.0-10.0 HEMOGLOBIN [...] 26-388 IRON W/ BINDING CAPACITY - 12/01/15 04:3 9 IRON SATURATION 13 % SAT 11-46 IRON BINDING CAPACITY, TOTAL 229 mcg/dL 250-450 IRON 30 mcg/dL 35-150 CBC - 05/03/16 06:55 MEAN CELL HGB 28.8 pg 27.0-33.0 MEAN CELL HGB CONCENTRATION 33.9 g/dL 32 .0-37.0 MEAN CELL VOLUME 84.9 fl 80.0-100.0 RED BLOOD CELL 4.65 m/cumm 4.00-6.00 RED CELL DISTRIBUTION WIDTH 15.2 % 11 .0-15.6 WHITE BLOOD CELL 5.7 k/cumm 5.0-10.0 HEMOGLOBIN 13.4 gm/dL 14.0-18.0 HEMATOCRIT 39.5 % 40.0-54.0 PLATELET COUNT 180 k/cumm 150-450 PROTHROMBIN TIME WITH INR - 05/03/16 06: 55 INTERNATIONAL NORMAL RATIO 0.9 0.9 -1.1 PROTHROMBIN TIME 10.9 sec 10.0-12.9 METABOLIC PANEL, [...] mmol/L 98-110 CARBON DIOXIDE 25 mmol/L 21-32 Creatinine, Serum - 06/03/16 03:45 Creatinine, Serum 1.3 0.6-1.4 GFR, Estimated - 06/03/16 03:45 eGFR 59 ML/MIN NRG CBC With Platelet and Differential - 03:45 Hematocrit (HCT) 43.3 % 42.0-52.0 Hemoglobin (Hgb) 14.5 G/DL 14.0-18.0 WBC 5.81 K/UL 4.8-10.8 Potassium (K), Serum - 06/03/16 03:45 Potassium (K), Serum 4.0 MEQ/L 3.2-5.2 Vitamin D, 25-Hydroxy - 06/03/16 03:45 Vitamin D,25-Hydroxy 65.52 NG/ML 25-80 [place] NE/CR ratio - 06/03/16 03:45 Creatinine, Random U 141.0 MG/DL NRG Protein,Total, Rdm U 15.0 MG/DL NRG Protein/Creat Ratio 0.[address] ANGIOGR ABD W/O&W - 07/21/16 09:12 Misc. Result, see notes for description See Attached Document NRG CT ANGIOGR ABD W/O&W See Attached Document NRG Complete blood count (CBC) with automate d white blood cell (WBC) differential - 01/04/17 09:40 Blood leukocytes automated count (number/volume) 6.3 10*3/uL 4.3-11.0 Blood erythrocytes automated count (number/volume) 4.70 10*6/uL 4.35-5.85 Venous blood hemoglobin measurement (mass/volume) 14.0 g/dL 13.3-17.7 Blood hematocrit (volume fraction) 41 % 40-54 Automated erythrocyte mean corpuscular volume 87 [ foz_us] 80-99 Automated erythrocyte mean corpuscular h emoglobin (mass per erythrocyte) 30 pg 25-34 Automated erythrocyte mean corpuscular h emoglobin concentration measurement (mass/volume) 34 g/dL 32-36 Automated erythrocyte distribution width ratio 14. 9 % 10.0- 14.5 Automated blood platelet count [...] 10*3 1.0-4.0 Blood monocytes automated count (number/volume) 0. 5 10*3 0.0-1.0 Automated eosinophil count 0.2 10*3/uL 0 .0-0.3 Automated blood basophil count (count/volume) 0.0 10*3/uL 0.0-0.1 Comprehensive metabolic panel - 01/04/17 09:40 Serum or plasma sodium measurement (moles/volume) 140 mmol/L 135-145 Serum or plasma potassium measurement (moles/volume) 3.9 mmol/L 3.6-5.0 Serum or plasma chloride measurement (moles/volume) 107 mmol/L 98-107 Carbon dioxide 23 mmol/L 21-32 Serum or plasma anion gap determination (moles/volume) 10 mmol/L 5-14 Serum or plasma urea nitrogen measurement (mass/volume ) 18 mg/dL 7-18 Serum or plasma creatinine measurement (mass/volume) 1.26 mg/dL 0.60-1.30 Serum or plasma urea nitrogen/creatinine mass ratio 14 NRG Serum or plasma creatinine measurement w ith calculation of estimated glomerular filtration rate 55 NRG Serum or plasma glucose measurement (mass/volume) 100 mg/dL 70-105 Serum or plasma calcium measurement (mass/volume) 9.0 mg/dL 8.5-10.1 Serum or plasma total bilirubin measurement (mass/volu me) 0.8 mg/dL 0.1-1.0 Serum or plasma alkaline phosphatase geri surement (enzymatic activity/volume) 82 U/L 40-136 Serum or plasma aspartate aminotransfera se measurement (enzymatic activity/volume) 22 U/L 5-34 Serum or plasma alanine aminotransferase measurement (enzymatic activity/volume) 22 U/L 0-55 Serum or plasma protein measurement (mass/volume) 6.9 g/dL 6.4-8.2 Serum or plasma albumin measurement (mass/volume) 3.9 g/dL 3.2-4.5 THYROID STIMULATING HORMONE - 01/04/17 0 9:40 THYROID STIMULATING HORMONE 1.80 u[iU]/mL 0.35-4.94 Serum or plasma testosterone measurement (mass/volume) - 01/04/17 09:40 Testosterone [mass or moles/volume] in serum or plasma 196 % 241-827 [id number] - 03/22/17 08:05 Serum or plasma urea nitrogen measurement (mass/volume ) 18 mg/dL 7-18 Serum or plasma creatinine measurement (mass/volume) 1.21 mg/dL 0.60-1.30 Serum or plasma urea nitrogen/creatinine mass ratio 15 NRG Serum or plasma creatinine measurement w ith calculation of estimated glomerular filtration rate 58 NRG [id number] - 11/16/17 10:09 Serum or plasma urea nitrogen measurement (mass/volume ) 15 mg/dL 7-18 Serum or plasma creatinine measurement (mass/volume) 1.23 mg/dL 0.60-1.30 Serum or plasma urea nitrogen/creatinine mass ratio 12 NRG Serum or plasma creatinine measurement w ith calculation of estimated glomerular filtration rate 57 [...] 27.0-33.0 MEAN CELL HGB CONCENTRATION 34.6 g/dL 32 .0-37.0 MEAN CELL VOLUME 88.8 fl 80.0-100.0 MONOCYTE # 0.5 k/cumm 0.1-1.0 MONOCYTE % 7.3 % 4-6 MEAN PLATELET VOLUME 9.8 fl 8.5-10.9 RED BLOOD CELL 4.56 m/cumm 4.00-6.00 RED CELL DISTRIBUTION WIDTH 14.4 % 11 .0-15.6 WHITE BLOOD CELL 6.7 k/cumm 5.0-10.0 HEMOGLOBIN 14.0 gm/dL 14.0-18.0 HEMATOCRIT 40.5 % 40.0-54.0 PLATELET COUNT 197 k/cumm 150-400 IMMATURE GRANULOCYTE % 0.7 % 0.0-0.6 NRBC % 0.0 /100 WBC 0.0-0.0 IMMATURE GRANULOCYTE # 0.05 k/cumm 0.00- 0.09 PROTHROMBIN TIME WITH INR - 02/03/18 10: 50 INTERNATIONAL NORMAL RATIO 1.0 0.9 -1.1 PROTHROMBIN TIME 11.6 sec 10.0-12.8 METABOLIC PANEL, [...] 107 mmol/L 98-110 CARBON DIOXIDE 28 mmol/L 21-32 LIPID PANEL - 02/03/18 10:50 CHOLESTEROL/HDL RATIO [...] 107 mmol/L 98-110 CARBON DIOXIDE 26 mmol/L 21-32 CBC W/DIFF - 05/01/18 00:10 BASOPHIL # 0.0 k/cumm 0.0-0.2 BASOPHIL % 0.2 % 0-1 EOSINOPHIL # 0.0 k/cumm 0.1-0.5 EOSINOPHIL % 0.1 % 2-4 GRANULOCYTE # 15.1 k/cumm 2.0-9.0 GRANULOCYTE % 81.0 % 50-75 LYMPHOCYTE # 2.3 k/cumm 1.0-4.0 LYMPHOCYTE % 12.4 % 20-30 MEAN CELL HGB 30.9 pg 27.0-33.0 MEAN CELL HGB CONCENTRATION 34.2 g/dL 32 .0-37.0 MEAN CELL VOLUME 90.4 fl 80.0-100.0 MONOCYTE # 1.1 k/cumm 0.1-1.0 MONOCYTE % 5.7 % 4-6 MEAN PLATELET VOLUME 10.3 fl 8.5-10.9 RED BLOOD CELL 3.85 m/cumm 4.00-6.00 RED CELL DISTRIBUTION WIDTH 13.8 % 11 .0-15.6 WHITE BLOOD CELL 18.7 k/cumm 5.0-10.0 HEMOGLOBIN 11.9 gm/dL 14.0-18.0 HEMATOCRIT 34.8 % 40.0-54.0 NRBC % 0.0 /100 WBC 0.0-0.0 PLATELET COUNT 277 k/cumm 150-400 IMMATURE GRANULOCYTE % 0.6 % 0.0-0.6 IMMATURE GRANULOCYTE # 0.12 k/cumm 0.00- 0.09 PROTHROMBIN TIME WITH INR - 05/01/18 00: 53 INTERNATIONAL NORMAL RATIO 1.1 0.9 -1.1 PROTHROMBIN TIME 12.3 sec 10.0-12.8 METABOLIC PANEL, COMPREHN - 05/01/18 00: 53 POTASSIUM 4.5 mmol/L 3.5-5.3 EST GFR (MDRD) [...] mg/dL 0.0-1.0 ALKALINE PHOSPHATASE TOTAL 67 IU/L 45- 117 CBC - 05/01/18 06:00 MEAN CELL HGB 31.1 pg 27.0-33.0 MEAN CELL HGB CONCENTRATION 34.9 g/dL 32 .0-37.0 MEAN CELL VOLUME 89.2 fl 80.0-100.0 MEAN PLATELET VOLUME 9.9 fl 8.5-10.9 RED BLOOD CELL 3.34 m/cumm 4.00-6.00 RED CELL DISTRIBUTION WIDTH 13.9 % 11 .0-15.6 WHITE BLOOD CELL 15.6 k/cumm 5.0-10.0 HEMOGLOBIN [...] 27.0-33.0 MEAN CELL HGB CONCENTRATION 33.8 g/dL 32 .0-37.0 MEAN CELL VOLUME 91.2 fl 80.0-100.0 MONOCYTE # 0.7 k/cumm 0.1-1.0 MONOCYTE % 5.3 % 4-6 MEAN PLATELET VOLUME 10.1 fl 8.5-10.9 RED BLOOD CELL 2.85 m/cumm 4.00-6.00 RED CELL DISTRIBUTION WIDTH 14.0 % 11 .0-15.6 WHITE BLOOD CELL 13.5 k/cumm 5.0-10.0 HEMOGLOBIN 8.8 gm/dL 14.0-18.0 HEMATOCRIT 26.0 % 40.0-54.0 NRBC % 0.0 /100 WBC 0.0-0.0 PLATELET COUNT 158 k/cumm 150-400 IMMATURE GRANULOCYTE % 0.5 % 0.0-0.6 IMMATURE GRANULOCYTE # 0.07 k/cumm 0.00- 0.09 GLUCOSE (POC) - 05/01/18 16:33 GLUCOSE (POC) [...] 27.0-33.0 MEAN CELL HGB CONCENTRATION 34.4 g/dL 32 .0-37.0 MEAN CELL VOLUME 90.7 fl 80.0-100.0 MONOCYTE # 0.2 k/cumm 0.1-1.0 MONOCYTE % 1.7 % 4-6 MEAN PLATELET VOLUME 10.1 fl 8.5-10.9 RED BLOOD CELL 3.01 m/cumm 4.00-6.00 RED CELL DISTRIBUTION WIDTH 13.9 % 11 .0-15.6 WHITE BLOOD CELL 10.3 k/cumm 5.0-10.0 HEMOGLOBIN 9.4 gm/dL 14.0-18.0 HEMATOCRIT 27.3 % 40.0-54.0 NRBC % 0.0 /100 WBC 0.0-0.0 PLATELET COUNT 157 k/cumm 150-400 IMMATURE GRANULOCYTE % 0.7 % 0.0-0.6 IMMATURE GRANULOCYTE # 0.07 k/cumm 0.00- 0.09 METABOLIC PANEL, COMPREHN - 05/02/18 03: 17 POTASSIUM 4.4 mmol/L 3.5-5.3 EST GFR (MDRD) [...] mg/dL 0.0-1.0 ALKALINE PHOSPHATASE TOTAL 50 IU/L 45- 117 GLUCOSE (POC) - 05/02/18 11:35 GLUCOSE (POC) 100 mg/dL 70-99 GLUCOSE (POC) - 05/02/18 16:14 GLUCOSE (POC) 90 mg/dL 70-99 CBC - 05/02/18 16:14 MEAN CELL HGB 31.1 pg 27.0-33.0 MEAN CELL HGB CONCENTRATION 33.9 g/dL 32 .0-37.0 MEAN CELL VOLUME 91.9 fl 80.0-100.0 MEAN PLATELET VOLUME 10.5 fl 8.5-10.9 RED BLOOD CELL 2.73 m/cumm 4.00-6.00 RED CELL DISTRIBUTION WIDTH 13.9 % 11 .0-15.6 WHITE BLOOD CELL 8.2 k/cumm 5.0-10.0 HEMOGLOBIN [...] 27.0-33.0 MEAN CELL HGB CONCENTRATION 34.2 g/dL 32 .0-37.0 MEAN CELL VOLUME 89.9 fl 80.0-100.0 MONOCYTE # 0.4 k/cumm 0.1-1.0 MONOCYTE % 5.7 % 4-6 MEAN PLATELET VOLUME 10.2 fl 8.5-10.9 RED BLOOD CELL 2.67 m/cumm 4.00-6.00 RED CELL DISTRIBUTION WIDTH 13.8 % 11 .0-15.6 WHITE BLOOD CELL 6.6 k/cumm 5.0-10.0 HEMOGLOBIN 8.2 gm/dL 14.0-18.0 HEMATOCRIT 24.0 % 40.0-54.0 NRBC % 0.0 /100 WBC 0.0-0.0 PLATELET COUNT 152 k/cumm 150-400 IMMATURE GRANULOCYTE % 0.8 % 0.0-0.6 IMMATURE GRANULOCYTE # 0.05 k/cumm 0.00- 0.09 METABOLIC PANEL, BASIC - 05/03/18 04:08 POTASSIUM [...] 27.0-33.0 MEAN CELL HGB CONCENTRATION 34.9 g/dL 32 .0-37.0 MEAN CELL VOLUME 89.8 fl 80.0-100.0 MONOCYTE # 0.4 k/cumm 0.1-1.0 MONOCYTE % 7.2 % 4-6 MEAN PLATELET VOLUME 9.8 fl 8.5-10.9 RED BLOOD CELL 2.65 m/cumm 4.00-6.00 RED CELL DISTRIBUTION WIDTH 13.7 % 11 .0-15.6 WHITE BLOOD CELL 6.1 k/cumm 5.0-10.0 HEMOGLOBIN 8.3 gm/dL 14.0-18.0 HEMATOCRIT 23.8 % 40.0-54.0 NRBC % 0.0 /100 WBC 0.0-0.0 PLATELET COUNT 171 k/cumm 150-400 IMMATURE GRANULOCYTE % 1.0 % 0.0-0.6 IMMATURE GRANULOCYTE # 0.06 k/cumm 0.00- 0.09 METABOLIC PANEL, BASIC - 05/04/18 03:44 POTASSIUM [...] 27.0-33.0 MEAN CELL HGB CONCENTRATION 33.7 g/dL 32 .0-37.0 MEAN CELL VOLUME 89.8 fl 80.0-100.0 MONOCYTE # 0.4 k/cumm 0.1-1.0 MONOCYTE % 6.6 % 4-6 MEAN PLATELET VOLUME 9.5 fl 8.5-10.9 RED BLOOD CELL 2.94 m/cumm 4.00-6.00 RED CELL DISTRIBUTION WIDTH 13.9 % 11 .0-15.6 WHITE BLOOD CELL 6.0 k/cumm 5.0-10.0 HEMOGLOBIN 8.9 gm/dL 14.0-18.0 HEMATOCRIT 26.4 % 40.0-54.0 NRBC % 0.0 /100 WBC 0.0-0.0 PLATELET COUNT 231 k/cumm 150-400 IMMATURE GRANULOCYTE % 1.0 % 0.0-0.6 IMMATURE GRANULOCYTE # 0.06 k/cumm 0.00- 0.09 METABOLIC PANEL, BASIC - 05/05/18 06:00 POTASSIUM [...] mg/dL 1.8-2.4 Complete blood count (CBC) with automate d white blood cell (WBC) differential - 11/27/18 14:23 Blood leukocytes automated count (number/volume) 7.5 10*3/uL 4.3-11.0 Blood erythrocytes automated count (number/volume) 4.81 10*6/uL 4.35-5.85 Venous blood hemoglobin measurement (mass/volume) 14.9 g/dL 13.3-17.7 Blood hematocrit (volume fraction) 42 % 40-54 Automated erythrocyte mean corpuscular volume 88 [ foz_us] 80-99 Automated erythrocyte mean corpuscular h emoglobin (mass per erythrocyte) 31 pg 25-34 Automated erythrocyte mean corpuscular h emoglobin concentration measurement (mass/volume) 35 g/dL 32-36 Automated erythrocyte distribution width ratio 14. 7 % 10.0- 14.5 Automated blood platelet count [...] 10*3 1.0-4.0 Blood monocytes automated count (number/volume) 0. 6 10*3 0.0-1.0 Automated eosinophil count 0.2 10*3/uL 0 .0-0.3 Automated blood basophil count (count/volume) 0.0 10*3/uL 0.0-0.1 Comprehensive metabolic panel - 11/27/18 14:23 Serum or plasma sodium measurement (moles/volume) 141 mmol/L 135-145 Serum or plasma potassium measurement (moles/volume) 3.5 mmol/L 3.6-5.0 Serum or plasma chloride measurement (moles/volume) 109 mmol/L 98-107 Carbon dioxide 20 mmol/L 21-32 Serum or plasma anion gap determination (moles/volume) 12 mmol/L 5-14 Serum or plasma urea nitrogen measurement (mass/volume ) 15 mg/dL 7-18 Serum or plasma creatinine measurement (mass/volume) 1.10 mg/dL 0.60-1.30 Serum or plasma urea nitrogen/creatinine mass ratio 14 NRG Serum or plasma creatinine measurement w ith calculation of estimated glomerular filtration rate > NRG Serum or plasma glucose measurement (mass/volume) 117 mg/dL 70-105 Serum or plasma calcium measurement (mass/volume) 9.5 mg/dL 8.5-10.1 Serum or plasma total bilirubin measurement (mass/volu me) 1.4 mg/dL 0.1-1.0 Serum or plasma alkaline phosphatase geri surement (enzymatic activity/volume) 78 U/L 40-136 Serum or plasma aspartate aminotransfera se measurement (enzymatic activity/volume) 21 U/L 5-34 Serum or plasma alanine aminotransferase measurement (enzymatic activity/volume) 20 U/L 0-55 Serum or plasma protein measurement (mass/volume) 7.0 g/dL 6.4-8.2 Serum or plasma albumin measurement (mass/volume) 4.1 g/dL 3.2-4.5 CALCIUM CORRECTED 9.4 mg/dL 8.5-10.1 Serum or plasma creatine kinase measurem ent (enzymatic activity/volume) - 11/27/18 14:23 Serum or plasma creatine kinase measurem ent (enzymatic activity/volume) 92 U/L 30-200 Serum or plasma troponin i.cardiac measu rement (mass/volume) - 11/27/18 14:23 Serum or plasma troponin i.cardiac measurement (mass/v olume) < ng/mL <0.028 Serum or plasma thyrotropin measurement by detection limit <=0.05 miu/l (units/volume) - 11/27/18 14:23 Serum or plasma thyrotropin measurement by detection limit <=0.05 miu/l (units/volume) 0.98 u[iU]/mL 0.35-4.94 Complete blood count (CBC) with automate d white blood cell (WBC) differential - 12/19/18 15:26 Blood leukocytes automated count (number/volume) 6.2 10*3/uL 4.3-11.0 Blood erythrocytes automated count (number/volume) 4.33 10*6/uL 4.35-5.85 Venous blood hemoglobin measurement (mass/volume) 13.4 g/dL 13.3-17.7 Blood hematocrit (volume fraction) 39 % 40-54 Automated erythrocyte mean corpuscular volume 89 [ foz_us] 80-99 Automated erythrocyte mean corpuscular h emoglobin (mass per erythrocyte) 31 pg 25-34 Automated erythrocyte mean corpuscular h emoglobin concentration measurement (mass/volume) 35 g/dL 32-36 Automated erythrocyte distribution width ratio 13. 9 % 10.0- 14.5 Automated blood platelet count [...] 10*3 1.0-4.0 Blood monocytes automated count (number/volume) 0. 5 10*3 0.0-1.0 Automated eosinophil count 0.3 10*3/uL 0 .0-0.3 Automated blood basophil count (count/volume) 0.0 10*3/uL 0.0-0.1 Comprehensive metabolic panel - 12/19/18 15:26 Serum or plasma sodium measurement (moles/volume) 140 mmol/L 135-145 Serum or plasma potassium measurement (moles/volume) 4.0 mmol/L 3.6-5.0 Serum or plasma chloride measurement (moles/volume) 106 mmol/L 98-107 Carbon dioxide 22 mmol/L 21-32 Serum or plasma anion gap determination (moles/volume) 12 mmol/L 5-14 Serum or plasma urea nitrogen measurement (mass/volume ) 14 mg/dL 7-18 Serum or plasma creatinine measurement (mass/volume) 1.03 mg/dL 0.60-1.30 Serum or plasma urea nitrogen/creatinine mass ratio 14 NRG Serum or plasma creatinine measurement w ith calculation of estimated glomerular filtration rate > NRG Serum or plasma glucose measurement (mass/volume) 85 mg/dL 70-105 Serum or plasma calcium measurement (mass/volume) 9.2 mg/dL 8.5-10.1 Serum or plasma total bilirubin measurement (mass/volu me) 1.5 mg/dL 0.1-1.0 Serum or plasma alkaline phosphatase geri surement (enzymatic activity/volume) 85 U/L 40-136 Serum or plasma aspartate aminotransfera se measurement (enzymatic activity/volume) 28 U/L 5-34 Serum or plasma alanine aminotransferase measurement (enzymatic activity/volume) 25 U/L 0-55 Serum or plasma protein measurement (mass/volume) 6.5 g/dL 6.4-8.2 Serum or plasma albumin measurement (mass/volume) 3.9 g/dL 3.2-4.5 CALCIUM CORRECTED 9.3 mg/dL 8.5-10.1 Serum or plasma C reactive protein measu rement (mass/volume) - 12/19/18 15:26 Serum or plasma C reactive protein measurement (mass/v olume) 0.25 mg/dL 0.00-0.50 Complete blood count (CBC) with automate d white blood cell (WBC) differential - 12/20/18 05:33 Blood leukocytes automated count (number/volume) 5.6 10*3/uL 4.3-11.0 Blood erythrocytes automated count (number/volume) 4.28 10*6/uL 4.35-5.85 Venous blood hemoglobin measurement (mass/volume) 13.1 g/dL 13.3-17.7 Blood hematocrit (volume fraction) 38 % 40-54 Automated erythrocyte mean corpuscular volume 90 [ foz_us] 80-99 Automated erythrocyte mean corpuscular h emoglobin (mass per erythrocyte) 31 pg 25-34 Automated erythrocyte mean corpuscular h emoglobin concentration measurement (mass/volume) 34 g/dL 32-36 Automated erythrocyte distribution width ratio 13. 5 % 10.0- 14.5 Automated blood platelet count [...] 10*3 1.0-4.0 Blood monocytes automated count (number/volume) 0. 2 10*3 0.0-1.0 Automated eosinophil count 0.0 10*3/uL 0 .0-0.3 Automated blood basophil count (count/volume) 0.0 10*3/uL 0.0-0.1 Comprehensive metabolic panel - 12/20/18 05:33 Serum or plasma sodium measurement (moles/volume) 136 mmol/L 135-145 Serum or plasma potassium measurement (moles/volume) 4.1 mmol/L 3.6-5.0 Serum or plasma chloride measurement (moles/volume) 108 mmol/L 98-107 Carbon dioxide 20 mmol/L 21-32 Serum or plasma anion gap determination (moles/volume) 8 mmol/L 5-14 Serum or plasma urea nitrogen measurement (mass/volume ) 14 mg/dL 7-18 Serum or plasma creatinine measurement (mass/volume) 0.98 mg/dL 0.60-1.30 Serum or plasma urea nitrogen/creatinine mass ratio 14 NRG Serum or plasma creatinine measurement w ith calculation of estimated glomerular filtration rate > NRG Serum or plasma glucose measurement (mass/volume) 135 mg/dL 70-105 Serum or plasma calcium measurement (mass/volume) 9.5 mg/dL 8.5-10.1 Serum or plasma total bilirubin measurement (mass/volu me) 1.5 mg/dL 0.1-1.0 Serum or plasma alkaline phosphatase geri surement (enzymatic activity/volume) 76 U/L 40-136 Serum or plasma aspartate aminotransfera se measurement (enzymatic activity/volume) 23 U/L 5-34 Serum or plasma alanine aminotransferase measurement (enzymatic activity/volume) 22 U/L 0-55 Serum or plasma protein measurement (mass/volume) 6.2 g/dL 6.4-8.2 Serum or plasma albumin measurement (mass/volume) 3.8 g/dL 3.2-4.5 CALCIUM CORRECTED 9.7 mg/dL 8.5-10.1 Automated blood complete blood count (he mogram) panel - 12/27/18 14:10 Blood leukocytes automated count (number/volume) 7.7 10*3/uL 4.3-11.0 Blood erythrocytes automated count (number/volume) 4.48 10*6/uL 4.35-5.85 Venous blood hemoglobin measurement (mass/volume) 13.8 g/dL 13.3-17.7 Blood hematocrit (volume fraction) 40 % 40-54 Automated erythrocyte mean corpuscular volume 88 [ foz_us] 80-99 Automated erythrocyte mean corpuscular h emoglobin (mass per erythrocyte) 31 pg 25-34 Automated erythrocyte mean corpuscular h emoglobin concentration measurement (mass/volume) 35 g/dL 32-36 Automated erythrocyte distribution width ratio 13. 9 % 10.0- 14.5 Automated blood platelet count (count/volume) 246 10*3/uL 130-400 Automated blood platelet mean volume measurement 10.3 [foz_us] 7.4-10.4 Whole blood basic metabolic panel - 12/15 01/02 16:10 Serum or plasma sodium measurement (moles/volume) 139 mmol/L 135-145 Serum or plasma potassium measurement (moles/volume) 3.6 mmol/L 3.6-5.0 Serum or plasma chloride measurement (moles/volume) 108 mmol/L 98-107 Carbon dioxide 21 mmol/L 21-32 Serum or plasma anion gap determination (moles/volume) 10 mmol/L 5-14 Serum or plasma urea nitrogen measurement (mass/volume ) 13 mg/dL 7-18 Serum or plasma creatinine measurement (mass/volume) 1.06 mg/dL 0.60-1.30 Serum or plasma urea nitrogen/creatinine mass ratio 12 NRG Serum or plasma creatinine measurement w ith calculation of estimated glomerular filtration rate > NRG Serum or plasma glucose measurement (mass/volume) 82 mg/dL 70-105 Serum or plasma calcium measurement (mass/volume) 9.2 mg/dL 8.5-10.1 Capillary blood glucose measurement by g lucometer (mass/volume) - 02/07/19 15:47 Capillary blood glucose measurement by glucometer (mas s/volume) 131 mg/dL 70-110 Complete blood count (CBC) with automate d white blood cell (WBC) differential - 02/07/19 16:25 Blood leukocytes automated count (number/volume) 12.7 10*3/uL 4.3-11.0 Blood erythrocytes automated count (number/volume) 4.58 10*6/uL 4.35-5.85 Venous blood hemoglobin measurement (mass/volume) 13.8 g/dL 13.3-17.7 Blood hematocrit (volume fraction) 41 % 40-54 Automated erythrocyte mean corpuscular volume 89 [ foz_us] 80-99 Automated erythrocyte mean corpuscular h emoglobin (mass per erythrocyte) 30 pg 25-34 Automated erythrocyte mean corpuscular h emoglobin concentration measurement (mass/volume) 34 g/dL 32-36 Automated erythrocyte distribution width ratio 13. 6 % 10.0- 14.5 Automated blood platelet count [...] 10*3 1.0-4.0 Blood monocytes automated count (number/volume) 0. 9 10*3 0.0-1.0 Automated eosinophil count 0.0 10*3/uL 0 .0-0.3 Automated blood basophil count (count/volume) 0.0 10*3/uL 0.0-0.1 Blood lactic acid measurement (moles/vol ume) - 02/07/19 16:25 Blood lactic acid measurement (moles/volume) 1.86 mmol/L 0.50-2.00 Comprehensive metabolic panel - 02/07/19 16:25 Serum or plasma sodium measurement (moles/volume) 139 mmol/L 135-145 Serum or plasma potassium measurement (moles/volume) 3.9 mmol/L 3.6-5.0 Serum or plasma chloride measurement (moles/volume) 107 mmol/L 98-107 Carbon dioxide 21 mmol/L 21-32 Serum or plasma anion gap determination (moles/volume) 11 mmol/L 5-14 Serum or plasma urea nitrogen measurement (mass/volume ) 15 mg/dL 7-18 Serum or plasma creatinine measurement (mass/volume) 1.04 mg/dL 0.60-1.30 Serum or plasma urea nitrogen/creatinine mass ratio 14 NRG Serum or plasma creatinine measurement w ith calculation of estimated glomerular filtration rate > NRG Serum or plasma glucose measurement (mass/volume) 103 mg/dL 70-105 Serum or plasma calcium measurement (mass/volume) 10.0 mg/dL 8.5-10.1 Serum or plasma total bilirubin measurement (mass/volu me) 1.8 mg/dL 0.1-1.0 Serum or plasma alkaline phosphatase geri surement (enzymatic activity/volume) 82 U/L 40-136 Serum or plasma aspartate aminotransfera se measurement (enzymatic activity/volume) 17 U/L 5-34 Serum or plasma alanine aminotransferase measurement (enzymatic activity/volume) 18 U/L 0-55 Serum or plasma protein measurement (mass/volume) 7.1 g/dL 6.4-8.2 Serum or plasma albumin measurement (mass/volume) 4.2 g/dL 3.2-4.5 CALCIUM CORRECTED 9.8 mg/dL 8.5-10.1 Magnesium - 02/07/19 16:25 Magnesium 1.6 mg/dL 1.8-2.4 Lipase - 02/07/19 16:25 Lipase 18 U/L 8-78 Serum or plasma troponin i.cardiac measu rement (mass/volume) - 02/07/19 16:25 Serum or plasma troponin i.cardiac measurement (mass/v olume) < ng/mL <0.028 Complete blood count (CBC) with automate d white blood cell (WBC) differential - 04/05/19 04:05 Blood leukocytes automated count (number/volume) 7.6 10*3/uL 4.3-11.0 Blood erythrocytes automated count (number/volume) 3.90 10*6/uL 4.35-5.85 Venous blood hemoglobin measurement (mass/volume) 11.8 g/dL 13.3-17.7 Blood hematocrit (volume fraction) 35 % 40-54 Automated erythrocyte mean corpuscular volume 91 [ foz_us] 80-99 Automated erythrocyte mean corpuscular h emoglobin (mass per erythrocyte) 30 pg 25-34 Automated erythrocyte mean corpuscular h emoglobin concentration measurement (mass/volume) 33 g/dL 32-36 Automated erythrocyte distribution width ratio 14. 4 % 10.0- 14.5 Automated blood platelet count (count/volume) 194 10*3/uL 130-400 Automated blood platelet mean volume measurement 9.5 [foz_us] 7.4-10.4 Automated blood neutrophils/100 leukocytes 70 % 42-75 Automated blood lymphocytes/100 leukocytes 18 % 12-44 Blood monocytes/100 leukocytes 8 % 0-12 Automated blood eosinophils/100 leukocytes 4 % 0-10 Automated blood basophils/100 leukocytes 0 % 0-10 Blood neutrophils automated count (number/volume) 5.3 10*3 1.8-7.8 Blood lymphocytes automated count (number/volume) 1.4 10*3 1.0-4.0 Blood monocytes automated count (number/volume) 0. 6 10*3 0.0-1.0 Automated eosinophil count 0.3 10*3/uL 0 .0-0.3 Automated blood basophil count (count/volume) 0.0 10*3/uL 0.0-0.1 PT panel in platelet poor plasma by coag ulation assay - 04/05/19 04:05 Prothrombin time (PT) in platelet poor plasma by coagu lation assay 13.9 s 12.2-14.7 INR in platelet poor plasma or blood by coagulation as say 1.0 0.8-1.4 Comprehensive metabolic panel - 04/05/19 04:05 Serum or plasma sodium measurement (moles/volume) 138 mmol/L 135-145 Serum or plasma potassium measurement (moles/volume) 4.2 mmol/L 3.6-5.0 Serum or plasma chloride measurement (moles/volume) 104 mmol/L 98-107 Carbon dioxide 26 mmol/L 21-32 Serum or plasma anion gap determination (moles/volume) 8 mmol/L 5-14 Serum or plasma urea nitrogen measurement (mass/volume ) 19 mg/dL 7-18 Serum or plasma creatinine measurement (mass/volume) 1.17 mg/dL 0.60-1.30 Serum or plasma urea nitrogen/creatinine mass ratio 16 NRG Serum or plasma creatinine measurement w ith calculation of estimated glomerular filtration rate 60 NRG Serum or plasma glucose measurement (mass/volume) 89 mg/dL 70-105 Serum or plasma calcium measurement (mass/volume) 8.8 mg/dL 8.5-10.1 Serum or plasma total bilirubin measurement (mass/volu me) 1.2 mg/dL 0.1-1.0 Serum or plasma alkaline phosphatase geri surement (enzymatic activity/volume) 75 U/L 40-136 Serum or plasma aspartate aminotransfera se measurement (enzymatic activity/volume) 15 U/L 5-34 Serum or plasma alanine aminotransferase measurement (enzymatic activity/volume) 18 U/L 0-55 Serum or plasma protein measurement (mass/volume) 5.8 g/dL 6.4-8.2 Serum or plasma albumin measurement (mass/volume) 3.6 g/dL 3.2-4.5 CALCIUM CORRECTED 9.1 mg/dL 8.5-10.1 Complete blood count (CBC) with automate d white blood cell (WBC) differential - 04/10/19 06:54 Blood leukocytes automated count (number/volume) 8.2 10*3/uL 4.3-11.0 Blood erythrocytes automated count (number/volume) 4.28 10*6/uL 4.35-5.85 Venous blood hemoglobin measurement (mass/volume) 12.8 g/dL 13.3-17.7 Blood hematocrit (volume fraction) 38 % 40-54 Automated erythrocyte mean corpuscular volume 90 [ foz_us] 80-99 Automated erythrocyte mean corpuscular h emoglobin (mass per erythrocyte) 30 pg 25-34 Automated erythrocyte mean corpuscular h emoglobin concentration measurement (mass/volume) 33 g/dL 32-36 Automated erythrocyte distribution width ratio 14. 7 % 10.0- 14.5 Automated blood platelet count (count/volume) 209 10*3/uL 130-400 Automated blood platelet mean volume measurement 10.0 [foz_us] 7.4-10.4 Automated blood neutrophils/100 leukocytes 72 % 42-75 Automated blood lymphocytes/100 leukocytes 15 % 12-44 Blood monocytes/100 leukocytes 7 % 0-12 Automated blood eosinophils/100 leukocytes 6 % 0-10 Automated blood basophils/100 leukocytes 0 % 0-10 Blood neutrophils automated count (number/volume) 5.9 10*3 1.8-7.8 Blood lymphocytes automated count (number/volume) 1.2 10*3 1.0-4.0 Blood monocytes automated count (number/volume) 0. 6 10*3 0.0-1.0 Automated eosinophil count 0.5 10*3/uL 0 .0-0.3 Automated blood basophil count (count/volume) 0.0 10*3/uL 0.0-0.1 Comprehensive metabolic panel - 04/10/19 06:54 Serum or plasma sodium measurement (moles/volume) 139 mmol/L 135-145 Serum or plasma potassium measurement (moles/volume) 4.4 mmol/L 3.6-5.0 Serum or plasma chloride measurement (moles/volume) 105 mmol/L 98-107 Carbon dioxide 24 mmol/L 21-32 Serum or plasma anion gap determination (moles/volume) 10 mmol/L 5-14 Serum or plasma urea nitrogen measurement (mass/volume ) 15 mg/dL 7-18 Serum or plasma creatinine measurement (mass/volume) 1.27 mg/dL 0.60-1.30 Serum or plasma urea nitrogen/creatinine mass ratio 12 NRG Serum or plasma creatinine measurement w ith calculation of estimated glomerular filtration rate 54 NRG Serum or plasma glucose measurement (mass/volume) 97 mg/dL 70-105 Serum or plasma calcium measurement (mass/volume) 9.5 mg/dL 8.5-10.1 Serum or plasma total bilirubin measurement (mass/volu me) 1.3 mg/dL 0.1-1.0 Serum or plasma alkaline phosphatase geri surement (enzymatic activity/volume) 83 U/L 40-136 Serum or plasma aspartate aminotransfera se measurement (enzymatic activity/volume) 17 U/L 5-34 Serum or plasma alanine aminotransferase measurement (enzymatic activity/volume) 26 U/L 0-55 Serum or plasma protein measurement (mass/volume) 6.9 g/dL 6.4-8.2 Serum or plasma albumin measurement (mass/volume) 3.9 g/dL 3.2-4.5 CALCIUM CORRECTED 9.6 mg/dL 8.5-10.1 Complete blood count (CBC) with automate d white blood cell (WBC) differential - 05/21/19 20:15 Blood leukocytes automated count (number/volume) 8.3 10*3/uL 4.3-11.0 Blood erythrocytes automated count (number/volume) 4.45 10*6/uL 4.35-5.85 Venous blood hemoglobin measurement (mass/volume) 13.4 g/dL 13.3-17.7 Blood hematocrit (volume fraction) 40 % 40-54 Automated erythrocyte mean corpuscular volume 89 [ foz_us] 80-99 Automated erythrocyte mean corpuscular h emoglobin (mass per erythrocyte) 30 pg 25-34 Automated erythrocyte mean corpuscular h emoglobin concentration measurement (mass/volume) 34 g/dL 32-36 Automated erythrocyte distribution width ratio 15. 3 % 10.0- 14.5 Automated blood platelet count (count/volume) 249 10*3/uL 130-400 Automated blood platelet mean volume measurement 9.8 [foz_us] 7.4-10.4 Automated blood neutrophils/100 leukocytes 62 % 42-75 Automated blood lymphocytes/100 leukocytes 27 % 12-44 Blood monocytes/100 leukocytes 9 % 0-12 Automated blood eosinophils/100 leukocytes 2 % 0-10 Automated blood basophils/100 leukocytes 0 % 0-10 Blood neutrophils automated count (number/volume) 5.2 10*3 1.8-7.8 Blood lymphocytes automated count (number/volume) 2.2 10*3 1.0-4.0 Blood monocytes automated count (number/volume) 0. 8 10*3 0.0-1.0 Automated eosinophil count 0.1 10*3/uL 0 .0-0.3 Automated blood basophil count (count/volume) 0.0 10*3/uL 0.0-0.1 PT panel in platelet poor plasma by coag ulation assay - 05/21/19 20:15 Prothrombin time (PT) in platelet poor plasma by coagu lation assay 26.9 s 12.2-14.7 INR in platelet poor plasma or blood by coagulation as say 2.4 0.8-1.4 Whole blood basic metabolic panel - 03/04 20:15 Serum or plasma sodium measurement (moles/volume) 138 mmol/L 135-145 Serum or plasma potassium measurement (moles/volume) 4.4 mmol/L 3.6-5.0 Serum or plasma chloride measurement (moles/volume) 105 mmol/L 98-107 Carbon dioxide 20 mmol/L 21-32 Serum or plasma anion gap determination (moles/volume) 13 mmol/L 5-14 Serum or plasma urea nitrogen measurement (mass/volume ) 25 mg/dL 7-18 Serum or plasma creatinine measurement (mass/volume) 1.61 mg/dL 0.60-1.30 Serum or plasma urea nitrogen/creatinine mass ratio 16 NRG Serum or plasma creatinine measurement w ith calculation of estimated glomerular filtration rate 41 NRG Serum or plasma glucose measurement (mass/volume) 110 mg/dL 70-105 Serum or plasma calcium measurement (mass/volume) 9.3 mg/dL 8.5-10.1 Complete blood count (CBC) with automate d white blood cell (WBC) differential - 05/24/19 17:12 Blood leukocytes automated count (number/volume) 8.6 10*3/uL 4.3-11.0 Blood erythrocytes automated count (number/volume) 4.65 10*6/uL 4.35-5.85 Venous blood hemoglobin measurement (mass/volume) 13.6 g/dL 13.3-17.7 Blood hematocrit (volume fraction) 42 % 40-54 Automated erythrocyte mean corpuscular volume 90 [ foz_us] 80-99 Automated erythrocyte mean corpuscular h emoglobin (mass per erythrocyte) 29 pg 25-34 Automated erythrocyte mean corpuscular h emoglobin concentration measurement (mass/volume) 33 g/dL 32-36 Automated erythrocyte distribution width ratio 15. 6 % 10.0- 14.5 Automated blood platelet count (count/volume) 244 10*3/uL 130-400 Automated blood platelet mean volume measurement 10.2 [foz_us] 7.4-10.4 Automated blood neutrophils/100 leukocytes 75 % 42-75 Automated blood lymphocytes/100 leukocytes 17 % 12-44 Blood monocytes/100 leukocytes 7 % 0-12 Automated blood eosinophils/100 leukocytes 1 % 0-10 Automated blood basophils/100 leukocytes 0 % 0-10 Blood neutrophils automated count (number/volume) 6.4 10*3 1.8-7.8 Blood lymphocytes automated count (number/volume) 1.5 10*3 1.0-4.0 Blood monocytes automated count (number/volume) 0. 6 10*3 0.0-1.0 Automated eosinophil count 0.1 10*3/uL 0 .0-0.3 Automated blood basophil count (count/volume) 0.0 10*3/uL 0.0-0.1 Whole blood basic metabolic panel - 06/04 17:12 Serum or plasma sodium measurement (moles/volume) 137 mmol/L 135-145 Serum or plasma potassium measurement (moles/volume) 4.5 mmol/L 3.6-5.0 Serum or plasma chloride measurement (moles/volume) 105 mmol/L 98-107 Carbon dioxide 21 mmol/L 21-32 Serum or plasma anion gap determination (moles/volume) 11 mmol/L 5-14 Serum or plasma urea nitrogen measurement (mass/volume ) 22 mg/dL 7-18 Serum or plasma creatinine measurement (mass/volume) 1.46 mg/dL 0.60-1.30 Serum or plasma urea nitrogen/creatinine mass ratio 15 NRG Serum or plasma creatinine measurement w ith calculation of estimated glomerular filtration rate 46 NRG Serum or plasma glucose measurement (mass/volume) 100 mg/dL 70-105 Serum or plasma calcium measurement (mass/volume) 9.6 mg/dL 8.5-10.1 Complete blood count (CBC) with automate d white blood cell (WBC) differential - 05/25/19 03:04 Blood leukocytes automated count (number/volume) 8.9 10*3/uL 4.3-11.0 Blood erythrocytes automated count (number/volume) 4.22 10*6/uL 4.35-5.85 Venous blood hemoglobin measurement (mass/volume) 12.5 g/dL 13.3-17.7 Blood hematocrit (volume fraction) 38 % 40-54 Automated erythrocyte mean corpuscular volume 90 [ foz_us] 80-99 Automated erythrocyte mean corpuscular h emoglobin (mass per erythrocyte) 30 pg 25-34 Automated erythrocyte mean corpuscular h emoglobin concentration measurement (mass/volume) 33 g/dL 32-36 Automated erythrocyte distribution width ratio 15. 2 % 10.0- 14.5 Automated blood platelet count (count/volume) 214 10*3/uL 130-400 Automated blood platelet mean volume measurement 9.8 [foz_us] 7.4-10.4 Automated blood neutrophils/100 leukocytes 93 % 42-75 Automated blood lymphocytes/100 leukocytes 6 % 12-44 Blood monocytes/100 leukocytes 1 % 0-12 Automated blood eosinophils/100 leukocytes 0 % 0-10 Automated blood basophils/100 leukocytes 0 % 0-10 Blood neutrophils automated count (number/volume) 8.3 10*3 1.8-7.8 Blood lymphocytes automated count (number/volume) 0.6 10*3 1.0-4.0 Blood monocytes automated count (number/volume) 0. 1 10*3 0.0-1.0 Automated eosinophil count 0.0 10*3/uL 0 .0-0.3 Automated blood basophil count (count/volume) 0.0 10*3/uL 0.0-0.1 Whole blood basic metabolic panel - 07/05 03:04 Serum or plasma sodium measurement (moles/volume) 135 mmol/L 135-145 Serum or plasma potassium measurement (moles/volume) 5.1 mmol/L 3.6-5.0 Serum or plasma chloride measurement (moles/volume) 103 mmol/L 98-107 Carbon dioxide 22 mmol/L 21-32 Serum or plasma anion gap determination (moles/volume) 10 mmol/L 5-14 Serum or plasma urea nitrogen measurement (mass/volume ) 27 mg/dL 7-18 Serum or plasma creatinine measurement (mass/volume) 1.34 mg/dL 0.60-1.30 Serum or plasma urea nitrogen/creatinine mass ratio 20 NRG Serum or plasma creatinine measurement w ith calculation of estimated glomerular filtration rate 51 NRG Serum or plasma glucose measurement (mass/volume) 149 mg/dL 70-105 Serum or plasma calcium measurement (mass/volume) 9.4 mg/dL 8.5-10.1 Complete blood count (CBC) with automate d white blood cell (WBC) differential - 05/26/19 05:33 Blood leukocytes automated count (number/volume) 12.6 10*3/uL 4.3-11.0 Blood erythrocytes automated count (number/volume) 3.84 10*6/uL 4.35-5.85 Venous blood hemoglobin measurement (mass/volume) 11.4 g/dL 13.3-17.7 Blood hematocrit (volume fraction) 34 % 40-54 Automated erythrocyte mean corpuscular volume 90 [ foz_us] 80-99 Automated erythrocyte mean corpuscular h emoglobin (mass per erythrocyte) 30 pg 25-34 Automated erythrocyte mean corpuscular h emoglobin concentration measurement (mass/volume) 33 g/dL 32-36 Automated erythrocyte distribution width ratio 15. 2 % 10.0- 14.5 Automated blood platelet count (count/volume) 233 10*3/uL 130-400 Automated blood platelet mean volume measurement 10.1 [foz_us] 7.4-10.4 Automated blood neutrophils/100 leukocytes 84 % 42-75 Automated blood lymphocytes/100 leukocytes 9 % 12-44 Blood monocytes/100 leukocytes 7 % 0-12 Automated blood eosinophils/100 leukocytes 0 % 0-10 Automated blood basophils/100 leukocytes 0 % 0-10 Blood neutrophils automated count (number/volume) 10.6 10*3 1.8-7.8 Blood lymphocytes automated count (number/volume) 1.1 10*3 1.0-4.0 Blood monocytes automated count (number/volume) 0. 8 10*3 0.0-1.0 Automated eosinophil count 0.0 10*3/uL 0 .0-0.3 Automated blood basophil count (count/volume) 0.0 10*3/uL 0.0-0.1 PT panel in platelet poor plasma by coag ulation assay - 05/26/19 05:33 Prothrombin time (PT) in platelet poor plasma by coagu lation assay 24.2 s 12.2-14.7 INR in platelet poor plasma or blood by coagulation as say 2.1 0.8-1.4 Whole blood basic metabolic panel - 05/17 05:33 Serum or plasma sodium measurement (moles/volume) 136 mmol/L 135-145 Serum or plasma potassium measurement (moles/volume) 4.7 mmol/L 3.6-5.0 Serum or plasma chloride measurement (moles/volume) 105 mmol/L 98-107 Carbon dioxide 19 mmol/L 21-32 Serum or plasma anion gap determination (moles/volume) 12 mmol/L 5-14 Serum or plasma urea nitrogen measurement (mass/volume ) 29 mg/dL 7-18 Serum or plasma creatinine measurement (mass/volume) 1.44 mg/dL 0.60-1.30 Serum or plasma urea nitrogen/creatinine mass ratio 20 NRG Serum or plasma creatinine measurement w ith calculation of estimated glomerular filtration rate 47 NRG Serum or plasma glucose measurement (mass/volume) 111 mg/dL 70-105 Serum or plasma calcium measurement (mass/volume) 9.6 mg/dL 8.5-10.1 Complete blood count (CBC) with automate d white blood cell (WBC) differential - 07/08/19 19:15 Blood leukocytes automated count (number/volume) 7.4 10*3/uL 4.3-11.0 Blood erythrocytes automated count (number/volume) 3.91 10*6/uL 4.35-5.85 Venous blood hemoglobin measurement (mass/volume) 11.3 g/dL 13.3-17.7 Blood hematocrit (volume fraction) 35 % 40-54 Automated erythrocyte mean corpuscular volume 89 [ foz_us] 80-99 Automated erythrocyte mean corpuscular h emoglobin (mass per erythrocyte) 29 pg 25-34 Automated erythrocyte mean corpuscular h emoglobin concentration measurement (mass/volume) 33 g/dL 32-36 Automated erythrocyte distribution width ratio 15. 1 % 10.0- 14.5 Automated blood platelet count (count/volume) 256 10*3/uL 130-400 Automated blood platelet mean volume measurement 9.6 [foz_us] 7.4-10.4 Automated blood neutrophils/100 leukocytes 57 % 42-75 Automated blood lymphocytes/100 leukocytes 32 % 12-44 Blood monocytes/100 leukocytes 9 % 0-12 Automated blood eosinophils/100 leukocytes 2 % 0-10 Automated blood basophils/100 leukocytes 0 % 0-10 Blood neutrophils automated count (number/volume) 4.2 10*3 1.8-7.8 Blood lymphocytes automated count (number/volume) 2.4 10*3 1.0-4.0 Blood monocytes automated count (number/volume) 0. 7 10*3 0.0-1.0 Automated eosinophil count 0.1 10*3/uL 0 .0-0.3 Automated blood basophil count (count/volume) 0.0 10*3/uL 0.0-0.1 PT panel in platelet poor plasma by coag ulation assay - 07/08/19 19:15 Prothrombin time (PT) in platelet poor plasma by coagu lation assay 35.9 s 12.2-14.7 INR in platelet poor plasma or blood by coagulation as say 3.4 0.8-1.4 Activated partial thromboplastin time (a PTT) in platelet poor plasma bycoagulation assay - 07/08/19 19:15 Activated partial thromboplastin time (a PTT) in platelet poor plasma bycoagulation assay 56 s 24-35 Comprehensive metabolic panel - 07/08/19 19:15 Serum or plasma sodium measurement (moles/volume) 139 mmol/L 135-145 Serum or plasma potassium measurement (moles/volume) 4.0 mmol/L 3.6-5.0 Serum or plasma chloride measurement (moles/volume) 106 mmol/L 98-107 Carbon dioxide 20 mmol/L 21-32 Serum or plasma anion gap determination (moles/volume) 13 mmol/L 5-14 Serum or plasma urea nitrogen measurement (mass/volume ) 15 mg/dL 7-18 Serum or plasma creatinine measurement (mass/volume) 1.34 mg/dL 0.60-1.30 Serum or plasma urea nitrogen/creatinine mass ratio 11 NRG Serum or plasma creatinine measurement w ith calculation of estimated glomerular filtration rate 51 NRG Serum or plasma glucose measurement (mass/volume) 99 mg/dL 70-105 Serum or plasma calcium measurement (mass/volume) 8.5 mg/dL 8.5-10.1 Serum or plasma total bilirubin measurement (mass/volu me) 0.7 mg/dL 0.1-1.0 Serum or plasma alkaline phosphatase geri surement (enzymatic activity/volume) 108 U/L 40-136 Serum or plasma aspartate aminotransfera se measurement (enzymatic activity/volume) 43 U/L 5-34 Serum or plasma alanine aminotransferase measurement (enzymatic activity/volume) 64 U/L 0-55 Serum or plasma protein measurement (mass/volume) 6.7 g/dL 6.4-8.2 Serum or plasma albumin measurement (mass/volume) 3.7 g/dL 3.2-4.5 CALCIUM CORRECTED 8.7 mg/dL 8.5-10.1 Magnesium - 07/08/19 19:15 Magnesium 1.9 mg/dL 1.6-2.4 Serum or plasma troponin i.cardiac measu rement (mass/volume) - 07/08/19 19:15 Serum or plasma troponin i.cardiac measurement (mass/v olume) < ng/mL <0.028 Serum or plasma amylase measurement (enz ymatic activity/volume) - 07/08/19 19:15 Serum or plasma amylase measurement (enzymatic activit y/volume) 77 U/L 25-125 Lipase - 09/22/19 19:15 Lipase 20 U/L 8-78 Complete urinalysis with reflex to cultu re - 07/09/19 04:30 Urine color determination YELLOW NRG Urine clarity determination CLEAR NR G Urine pH measurement by test strip 6 5-9 Specific gravity of urine by test strip 1.015 1.016-1.022 Urine protein assay by test strip, semi-quantitative NEGATIVE NEGATIVE Urine glucose detection by automated test strip NE GATIVE NEGATIVE Erythrocytes detection in urine sediment by light micr oscopy 1+ NEGATIVE Urine ketones detection by automated test strip NE GATIVE NEGATIVE Urine nitrite detection by test strip NEGATIVE NEGATIVE Urine total bilirubin detection by test strip NEGA TIVE NEGATIVE Urine urobilinogen measurement by automated test strip (mass/volume) NORMAL NORMAL Urine leukocyte esterase detection by dipstick 1+ NEGATIVE Automated urine sediment erythrocyte cou nt by microscopy (number/high power field) [HPF] NRG Automated urine sediment leukocyte count by microscopy (number/high power field) [HPF] NRG Bacteria detection in urine sediment by light microsco py TRACE NRG Squamous epithelial cells detection in u rine sediment by light microscopy 2-5 NRG Crystals detection in urine sediment by light microsco py NONE NRG Casts detection in urine sediment by light microscopy NONE NRG Mucus detection in urine sediment by light microscopy NEGATIVE NRG Complete urinalysis with reflex to culture YES NRG Bacterial urine culture - 07/09/19 04:30 Bacterial urine culture GRAM POS M NRG COLONY COUNT 20,000 CFU/ML NRG FTX;REPORTABLE SUSCEPTIBILITY REPORTED 07/11/19 10: 30 NRG Dirithromycin susceptibility test by dis k diffusion - 07/09/19 04:30 Gentamicin susceptibility test by minimum inhibitory c oncentration <= NRG Trimethoprim/sulfamethoxazole susceptibi lity test by minimum inhibitoryconcentration <= NRG Levofloxacin susceptibility test by minimum inhibitory concentration <= NRG Ampicillin susceptibility test by minimum inhibitory c oncentration <= NRG Cefazolin susceptibility test by minimum inhibitory co ncentration 8 NRG Ceftriaxone susceptibility test by minimum inhibitory concentration <= NRG Ciprofloxacin susceptibility test by minimum inhibitor y concentration <= NRG Nitrofurantoin susceptibility test by mi nimum inhibitory concentration > NRG Amoxicillin and clavulanate potassium susc NERIS <= NRG Complete blood count (CBC) with automate d white blood cell (WBC) differential - 07/09/19 07:28 Blood leukocytes automated count (number/volume) 5.9 10*3/uL 4.3-11.0 Blood erythrocytes automated count (number/volume) 3.57 10*6/uL 4.35-5.85 Venous blood hemoglobin measurement (mass/volume) 10.4 g/dL 13.3-17.7 Blood hematocrit (volume fraction) 32 % 40-54 Automated erythrocyte mean corpuscular volume 90 [ foz_us] 80-99 Automated erythrocyte mean corpuscular h emoglobin (mass per erythrocyte) 29 pg 25-34 Automated erythrocyte mean corpuscular h emoglobin concentration measurement (mass/volume) 32 g/dL 32-36 Automated erythrocyte distribution width ratio 15. 2 % 10.0- 14.5 Automated blood platelet count (count/volume) 209 10*3/uL 130-400 Automated blood platelet mean volume measurement 9.6 [foz_us] 7.4-10.4 Automated blood neutrophils/100 leukocytes 63 % 42-75 Automated blood lymphocytes/100 leukocytes 29 % 12-44 Blood monocytes/100 leukocytes 7 % 0-12 Automated blood eosinophils/100 leukocytes 1 % 0-10 Automated blood basophils/100 leukocytes 0 % 0-10 Blood neutrophils automated count (number/volume) 3.7 10*3 1.8-7.8 Blood lymphocytes automated count (number/volume) 1.7 10*3 1.0-4.0 Blood monocytes automated count (number/volume) 0. 4 10*3 0.0-1.0 Automated eosinophil count 0.1 10*3/uL 0 .0-0.3 Automated blood basophil count (count/volume) 0.0 10*3/uL 0.0-0.1 Comprehensive metabolic panel - 07/09/19 07:28 Serum or plasma sodium measurement (moles/volume) 139 mmol/L 135-145 Serum or plasma potassium measurement (moles/volume) 4.7 mmol/L 3.6-5.0 Serum or plasma chloride measurement (moles/volume) 107 mmol/L 98-107 Carbon dioxide 23 mmol/L 21-32 Serum or plasma anion gap determination (moles/volume) 9 mmol/L 5-14 Serum or plasma urea nitrogen measurement (mass/volume ) 14 mg/dL 7-18 Serum or plasma creatinine measurement (mass/volume) 1.25 mg/dL 0.60-1.30 Serum or plasma urea nitrogen/creatinine mass ratio 11 NRG Serum or plasma creatinine measurement w ith calculation of estimated glomerular filtration rate 55 NRG Serum or plasma glucose measurement (mass/volume) 81 mg/dL 70-105 Serum or plasma calcium measurement (mass/volume) 8.6 mg/dL 8.5-10.1 Serum or plasma total bilirubin measurement (mass/volu me) 1.0 mg/dL 0.1-1.0 Serum or plasma alkaline phosphatase geri surement (enzymatic activity/volume) 96 U/L 40-136 Serum or plasma aspartate aminotransfera se measurement (enzymatic activity/volume) 40 U/L 5-34 Serum or plasma alanine aminotransferase measurement (enzymatic activity/volume) 60 U/L 0-55 Serum or plasma protein measurement (mass/volume) 6.0 g/dL 6.4-8.2 Serum or plasma albumin measurement (mass/volume) 3.3 g/dL 3.2-4.5 CALCIUM CORRECTED 9.2 mg/dL 8.5-10.1 Complete blood count (CBC) with automate d white blood cell (WBC) differential - 09/12/19 19:45 Blood leukocytes automated count (number/volume) 9.1 10*3/uL 4.3-11.0 Blood erythrocytes automated count (number/volume) 4.02 10*6/uL 4.35-5.85 Venous blood hemoglobin measurement (mass/volume) 11.3 g/dL 13.3-17.7 Blood hematocrit (volume fraction) 34 % 40-54 Automated erythrocyte mean corpuscular volume 86 [ foz_us] 80-99 Automated erythrocyte mean corpuscular h emoglobin (mass per erythrocyte) 28 pg 25-34 Automated erythrocyte mean corpuscular h emoglobin concentration measurement (mass/volume) 33 g/dL 32-36 Automated erythrocyte distribution width ratio 16. 2 % 10.0- 14.5 Automated blood platelet count (count/volume) 294 10*3/uL 130-400 Automated blood platelet mean volume measurement 9.2 [foz_us] 7.4-10.4 Automated blood neutrophils/100 leukocytes 71 % 42-75 Automated blood lymphocytes/100 leukocytes 19 % 12-44 Blood monocytes/100 leukocytes 9 % 0-12 Automated blood eosinophils/100 leukocytes 0 % 0-10 Automated blood basophils/100 leukocytes 0 % 0-10 Blood neutrophils automated count (number/volume) 6.5 10*3 1.8-7.8 Blood lymphocytes automated count (number/volume) 1.7 10*3 1.0-4.0 Blood monocytes automated count (number/volume) 0. 8 10*3 0.0-1.0 Automated eosinophil count 0.0 10*3/uL 0 .0-0.3 Automated blood basophil count (count/volume) 0.0 10*3/uL 0.0-0.1 Blood lactic acid measurement (moles/vol ume) - 09/12/19 19:45 Blood lactic acid measurement (moles/volume) 1.80 mmol/L 0.50-2.00 Comprehensive metabolic panel - 09/12/19 19:45 Serum or plasma sodium measurement (moles/volume) 135 mmol/L 135-145 Serum or plasma potassium measurement (moles/volume) 4.1 mmol/L 3.6-5.0 Serum or plasma chloride measurement (moles/volume) 101 mmol/L 98-107 Carbon dioxide 22 mmol/L 21-32 Serum or plasma anion gap determination (moles/volume) 12 mmol/L 5-14 Serum or plasma urea nitrogen measurement (mass/volume ) 18 mg/dL 7-18 Serum or plasma creatinine measurement (mass/volume) 1.65 mg/dL 0.60-1.30 Serum or plasma urea nitrogen/creatinine mass ratio 11 NRG Serum or plasma creatinine measurement w ith calculation of estimated glomerular filtration rate 40 NRG Serum or plasma glucose measurement (mass/volume) 108 mg/dL 70-105 Serum or plasma calcium measurement (mass/volume) 9.2 mg/dL 8.5-10.1 Serum or plasma total bilirubin measurement (mass/volu me) 1.6 mg/dL 0.1-1.0 Serum or plasma alkaline phosphatase geri surement (enzymatic activity/volume) 122 U/L 40-136 Serum or plasma aspartate aminotransfera se measurement (enzymatic activity/volume) 42 U/L 5-34 Serum or plasma alanine aminotransferase measurement (enzymatic activity/volume) 51 U/L 0-55 Serum or plasma protein measurement (mass/volume) 7.3 g/dL 6.4-8.2 Serum or plasma albumin measurement (mass/volume) 4.0 g/dL 3.2-4.5 CALCIUM CORRECTED 9.2 mg/dL 8.5-10.1 Influenza virus A and B antigen detectio n - 09/12/19 19:45 FLU RESULT NEGATIVE FOR INFLUENZA A AND B ANTIGENS BY IA NRG Bacterial blood culture - 09/12/19 19:45 Bacterial blood culture NG NR PT panel in platelet poor plasma by coag ulation assay - 09/12/19 19:55 Prothrombin time (PT) in platelet poor plasma by coagu lation assay 30.1 s 12.2-14.7 INR in platelet poor plasma or blood by coagulation as say 2.7 0.8-1.4 Complete blood count (CBC) with automate d white blood cell (WBC) differential - 09/19/19 05:10 Blood leukocytes automated count (number/volume) 7.3 10*3/uL 4.3-11.0 Blood erythrocytes automated count (number/volume) 3.80 10*6/uL 4.35-5.85 Venous blood hemoglobin measurement (mass/volume) 10.5 g/dL 13.3-17.7 Blood hematocrit (volume fraction) 33 % 40-54 Automated erythrocyte mean corpuscular volume 87 [ foz_us] 80-99 Automated erythrocyte mean corpuscular h emoglobin (mass per erythrocyte) 28 pg 25-34 Automated erythrocyte mean corpuscular h emoglobin concentration measurement (mass/volume) 32 g/dL 32-36 Automated erythrocyte distribution width ratio 16. 4 % 10.0- 14.5 Automated blood platelet count (count/volume) 259 10*3/uL 130-400 Automated blood platelet mean volume measurement 10.0 [foz_us] 7.4-10.4 Automated blood neutrophils/100 leukocytes 68 % 42-75 Automated blood lymphocytes/100 leukocytes 21 % 12-44 Blood monocytes/100 leukocytes 9 % 0-12 Automated blood eosinophils/100 leukocytes 2 % 0-10 Automated blood basophils/100 leukocytes 0 % 0-10 Blood neutrophils automated count (number/volume) 5.0 10*3 1.8-7.8 Blood lymphocytes automated count (number/volume) 1.6 10*3 1.0-4.0 Blood monocytes automated count (number/volume) 0. 7 10*3 0.0-1.0 Automated eosinophil count 0.1 10*3/uL 0 .0-0.3 Automated blood basophil count (count/volume) 0.0 10*3/uL 0.0-0.1 Comprehensive metabolic panel - 09/19/19 05:10 Serum or plasma sodium measurement (moles/volume) 136 mmol/L 135-145 Serum or plasma potassium measurement (moles/volume) 4.3 mmol/L 3.6-5.0 Serum or plasma chloride measurement (moles/volume) 104 mmol/L 98-107 Carbon dioxide 22 mmol/L 21-32 Serum or plasma anion gap determination (moles/volume) 10 mmol/L 5-14 Serum or plasma urea nitrogen measurement (mass/volume ) 25 mg/dL 7-18 Serum or plasma creatinine measurement (mass/volume) 1.50 mg/dL 0.60-1.30 Serum or plasma urea nitrogen/creatinine mass ratio 17 NRG Serum or plasma creatinine measurement w ith calculation of estimated glomerular filtration rate 45 NRG Serum or plasma glucose measurement (mass/volume) 99 mg/dL 70-105 Serum or plasma calcium measurement (mass/volume) 8.8 mg/dL 8.5-10.1 Serum or plasma total bilirubin measurement (mass/volu me) 0.8 mg/dL 0.1-1.0 Serum or plasma alkaline phosphatase geri surement (enzymatic activity/volume) 96 U/L 40-136 Serum or plasma aspartate aminotransfera se measurement (enzymatic activity/volume) 108 U/L 5-34 Serum or plasma alanine aminotransferase measurement (enzymatic activity/volume) 198 U/L 0-55 Serum or plasma protein measurement (mass/volume) 6.4 g/dL 6.4-8.2 Serum or plasma albumin measurement (mass/volume) 3.4 g/dL 3.2-4.5 CALCIUM CORRECTED 9.3 mg/dL 8.5-10.1 Magnesium - 09/19/19 05:10 Magnesium 2.2 mg/dL 1.6-2.4 Serum or plasma lithium measurement (mol es/volume) - 09/19/19 05:10 BNP PT 109.1 pg/mL <100.0 Complete blood count (CBC) with automate d white blood cell (WBC) differential - 09/20/19 05:17 Blood leukocytes automated count (number/volume) 7.1 10*3/uL 4.3-11.0 Blood erythrocytes automated count (number/volume) 3.85 10*6/uL 4.35-5.85 Venous blood hemoglobin measurement (mass/volume) 10.7 g/dL 13.3-17.7 Blood hematocrit (volume fraction) 34 % 40-54 Automated erythrocyte mean corpuscular volume 87 [ foz_us] 80-99 Automated erythrocyte mean corpuscular h emoglobin (mass per erythrocyte) 28 pg 25-34 Automated erythrocyte mean corpuscular h emoglobin concentration measurement (mass/volume) 32 g/dL 32-36 Automated erythrocyte distribution width ratio 16. 4 % 10.0- 14.5 Automated blood platelet count (count/volume) 252 10*3/uL 130-400 Automated blood platelet mean volume measurement 9.9 [foz_us] 7.4-10.4 Automated blood neutrophils/100 leukocytes 70 % 42-75 Automated blood lymphocytes/100 leukocytes 21 % 12-44 Blood monocytes/100 leukocytes 8 % 0-12 Automated blood eosinophils/100 leukocytes 2 % 0-10 Automated blood basophils/100 leukocytes 0 % 0-10 Blood neutrophils automated count (number/volume) 5.0 10*3 1.8-7.8 Blood lymphocytes automated count (number/volume) 1.5 10*3 1.0-4.0 Blood monocytes automated count (number/volume) 0. 5 10*3 0.0-1.0 Automated eosinophil count 0.1 10*3/uL 0 .0-0.3 Automated blood basophil count (count/volume) 0.0 10*3/uL 0.0-0.1 Comprehensive metabolic panel - 09/20/19 05:17 Serum or plasma sodium measurement (moles/volume) 137 mmol/L 135-145 Serum or plasma potassium measurement (moles/volume) 4.4 mmol/L 3.6-5.0 Serum or plasma chloride measurement (moles/volume) 105 mmol/L 98-107 Carbon dioxide 22 mmol/L 21-32 Serum or plasma anion gap determination (moles/volume) 10 mmol/L 5-14 Serum or plasma urea nitrogen measurement (mass/volume ) 22 mg/dL 7-18 Serum or plasma creatinine measurement (mass/volume) 1.37 mg/dL 0.60-1.30 Serum or plasma urea nitrogen/creatinine mass ratio 16 NRG Serum or plasma creatinine measurement w ith calculation of estimated glomerular filtration rate 50 NRG Serum or plasma glucose measurement (mass/volume) 88 mg/dL 70-105 Serum or plasma calcium measurement (mass/volume) 8.9 mg/dL 8.5-10.1 Serum or plasma total bilirubin measurement (mass/volu me) 0.9 mg/dL 0.1-1.0 Serum or plasma alkaline phosphatase geri surement (enzymatic activity/volume) 96 U/L 40-136 Serum or plasma aspartate aminotransfera se measurement (enzymatic activity/volume) 76 U/L 5-34 Serum or plasma alanine aminotransferase measurement (enzymatic activity/volume) 170 U/L 0-55 Serum or plasma protein measurement (mass/volume) 6.4 g/dL 6.4-8.2 Serum or plasma albumin measurement (mass/volume) 3.4 g/dL 3.2-4.5 CALCIUM CORRECTED 9.4 mg/dL 8.5-10.1 Comprehensive metabolic panel - 09/22/19 05:05 Serum or plasma sodium measurement (moles/volume) 137 mmol/L 135-145 Serum or plasma potassium measurement (moles/volume) 4.0 mmol/L 3.6-5.0 Serum or plasma chloride measurement (moles/volume) 105 mmol/L 98-107 Carbon dioxide 19 mmol/L 21-32 Serum or plasma anion gap determination (moles/volume) 13 mmol/L 5-14 Serum or plasma urea nitrogen measurement (mass/volume ) 21 mg/dL 7-18 Serum or plasma creatinine measurement (mass/volume) 1.39 mg/dL 0.60-1.30 Serum or plasma urea nitrogen/creatinine mass ratio 15 NRG Serum or plasma creatinine measurement w ith calculation of estimated glomerular filtration rate 49 NRG Serum or plasma glucose measurement (mass/volume) 99 mg/dL 70-105 Serum or plasma calcium measurement (mass/volume) 8.6 mg/dL 8.5-10.1 Serum or plasma total bilirubin measurement (mass/volu me) 0.8 mg/dL 0.1-1.0 Serum or plasma alkaline phosphatase geri surement (enzymatic activity/volume) 93 U/L 40-136 Serum or plasma aspartate aminotransfera se measurement (enzymatic activity/volume) 38 U/L 5-34 Serum or plasma alanine aminotransferase measurement (enzymatic activity/volume) 102 U/L 0-55 Serum or plasma protein measurement (mass/volume) 6.3 g/dL 6.4-8.2 Serum or plasma albumin measurement (mass/volume) 3.3 g/dL 3.2-4.5 CALCIUM CORRECTED 9.2 mg/dL 8.5-10.1 Automated blood complete blood count (he mogram) panel - 09/22/19 05:05 Blood leukocytes automated count (number/volume) 8.2 10*3/uL 4.3-11.0 Blood erythrocytes automated count (number/volume) 3.89 10*6/uL 4.35-5.85 Venous blood hemoglobin measurement (mass/volume) 10.6 g/dL 13.3-17.7 Blood hematocrit (volume fraction) 33 % 40-54 Automated erythrocyte mean corpuscular volume 84 [ foz_us] 80-99 Automated erythrocyte mean corpuscular h emoglobin (mass per erythrocyte) 27 pg 25-34 Automated erythrocyte mean corpuscular h emoglobin concentration measurement (mass/volume) 32 g/dL 32-36 Automated erythrocyte distribution width ratio 16. 4 % 10.0- 14.5 Automated blood platelet count (count/volume) 271 10*3/uL 130-400 Automated blood platelet mean volume measurement 9.5 [foz_us] 7.4-10.4 Complete urinalysis with reflex to cultu re - 09/22/19 14:30 Urine color determination VALARIE NRG Urine clarity determination SL CLOUDY N RG Urine pH measurement by test strip 5.5 5-9 Specific gravity of urine by test strip 1.025 1.016-1.022 Urine protein assay by test strip, semi-quantitative TRACE NEGATIVE Urine glucose detection by automated test strip NE GATIVE NEGATIVE Erythrocytes detection in urine sediment by light micr oscopy 2+ NEGATIVE Urine ketones detection by automated test strip TR JOSSELIN NEGATIVE Urine nitrite detection by test strip NEGATIVE NEGATIVE Urine total bilirubin detection by test strip 1+ NEGATIVE Urine urobilinogen measurement by automated test strip (mass/volume) 0.2 mg/dL < = 1.0 Urine leukocyte esterase detection by dipstick 2+ NEGATIVE Automated urine sediment erythrocyte cou nt by microscopy (number/high power field) NONE NRG Automated urine sediment leukocyte count by microscopy (number/high power field) [HPF] NRG Bacteria detection in urine sediment by light microsco py MODERATE NRG Crystals detection in urine sediment by light microsco py NONE NRG Casts detection in urine sediment by light microscopy NONE NRG Mucus detection in urine sediment by light microscopy MODERATE NRG Complete urinalysis with reflex to culture YES NRG Bacterial urine culture - 09/22/19 14:30 Bacterial urine culture [id number] NRG COLONY COUNT 50,000 CFU/ML NRG FTX;REPORTABLE SUSCEPTIBILITY REPORTED 09/26/19 12 :25 NRG Dirithromycin susceptibility test by dis k diffusion - 09/22/19 14:30 Gentamicin susceptibility test by minimum inhibitory c oncentration <= NRG Trimethoprim/sulfamethoxazole susceptibi lity test by minimum inhibitoryconcentration <= NRG Levofloxacin susceptibility test by minimum inhibitory concentration <= NRG Ampicillin susceptibility test by minimum inhibitory c oncentration <= NRG Cefazolin susceptibility test by minimum inhibitory co ncentration 8 NRG Ceftriaxone susceptibility test by minimum inhibitory concentration <= NRG Ciprofloxacin susceptibility test by minimum inhibitor y concentration <= NRG Nitrofurantoin susceptibility test by mi nimum inhibitory concentration R NRG Amoxicillin and clavulanate potassium susc NERIS <= NRG Dirithromycin susceptibility test by dis k diffusion - 09/22/19 14:30 Vancomycin susceptibility test by minimum inhibitory c oncentration 2 NRG Levofloxacin susceptibility test by minimum inhibitory concentration <= NRG Ampicillin susceptibility test by minimum inhibitory c oncentration 1 NRG Nitrofurantoin susceptibility test by mi nimum inhibitory concentration <= NRG Linezolid susceptibility test by minimum inhibitory co ncentration <= NRG Daptomycin susc NEIRS 2 NRG Automated blood complete blood count (he mogram) panel - 09/24/19 05:06 Blood leukocytes automated count (number/volume) 7.9 10*3/uL 4.3-11.0 Blood erythrocytes automated count (number/volume) 3.87 10*6/uL 4.35-5.85 Venous blood hemoglobin measurement (mass/volume) 10.6 g/dL 13.3-17.7 Blood hematocrit (volume fraction) 33 % 40-54 Automated erythrocyte mean corpuscular volume 85 [ foz_us] 80-99 Automated erythrocyte mean corpuscular h emoglobin (mass per erythrocyte) 27 pg 25-34 Automated erythrocyte mean corpuscular h emoglobin concentration measurement (mass/volume) 32 g/dL 32-36 Automated erythrocyte distribution width ratio 16. 4 % 10.0- 14.5 Automated blood platelet count (count/volume) 293 10*3/uL 130-400 Automated blood platelet mean volume measurement 9.7 [foz_us] 7.4-10.4 PT panel in platelet poor plasma by coag ulation assay - 09/24/19 05:06 Prothrombin time (PT) in platelet poor plasma by coagu lation assay 14.5 s 12.2-14.7 INR in platelet poor plasma or blood by coagulation as say 1.1 0.8-1.4 Activated partial thromboplastin time (a PTT) in platelet poor plasma bycoagulation assay - 09/24/19 05:06 Activated partial thromboplastin time (a PTT) in platelet poor plasma bycoagulation assay 37 s 24-35 Comprehensive metabolic panel - 09/24/19 05:06 Serum or plasma sodium measurement (moles/volume) 137 mmol/L 135-145 Serum or plasma potassium measurement (moles/volume) 4.1 mmol/L 3.6-5.0 Serum or plasma chloride measurement (moles/volume) 105 mmol/L 98-107 Carbon dioxide 20 mmol/L 21-32 Serum or plasma anion gap determination (moles/volume) 12 mmol/L 5-14 Serum or plasma urea nitrogen measurement (mass/volume ) 21 mg/dL 7-18 Serum or plasma creatinine measurement (mass/volume) 1.55 mg/dL 0.60-1.30 Serum or plasma urea nitrogen/creatinine mass ratio 14 NRG Serum or plasma creatinine measurement w ith calculation of estimated glomerular filtration rate 43 NRG Serum or plasma glucose measurement (mass/volume) 86 mg/dL 70-105 Serum or plasma calcium measurement (mass/volume) 8.6 mg/dL 8.5-10.1 Serum or plasma total bilirubin measurement (mass/volu me) 0.7 mg/dL 0.1-1.0 Serum or plasma alkaline phosphatase geri surement (enzymatic activity/volume) 87 U/L 40-136 Serum or plasma aspartate aminotransfera se measurement (enzymatic activity/volume) 36 U/L 5-34 Serum or plasma alanine aminotransferase measurement (enzymatic activity/volume) 78 U/L 0-55 Serum or plasma protein measurement (mass/volume) 6.3 g/dL 6.4-8.2 Serum or plasma albumin measurement (mass/volume) 3.3 g/dL 3.2-4.5 CALCIUM CORRECTED 9.2 mg/dL 8.5-10.1 Complete blood count (CBC) with automate d white blood cell (WBC) differential - 10/01/19 05:50 Blood leukocytes automated count (number/volume) 6.6 10*3/uL 4.3-11.0 Blood erythrocytes automated count (number/volume) 3.91 10*6/uL 4.35-5.85 Venous blood hemoglobin measurement (mass/volume) 10.6 g/dL 13.3-17.7 Blood hematocrit (volume fraction) 34 % 40-54 Automated erythrocyte mean corpuscular volume 86 [ foz_us] 80-99 Automated erythrocyte mean corpuscular h emoglobin (mass per erythrocyte) 27 pg 25-34 Automated erythrocyte mean corpuscular h emoglobin concentration measurement (mass/volume) 32 g/dL 32-36 Automated erythrocyte distribution width ratio 16. 3 % 10.0- 14.5 Automated blood platelet count (count/volume) 300 10*3/uL 130-400 Automated blood platelet mean volume measurement 9.5 [foz_us] 7.4-10.4 Automated blood neutrophils/100 leukocytes 67 % 42-75 Automated blood lymphocytes/100 leukocytes 23 % 12-44 Blood monocytes/100 leukocytes 6 % 0-12 Automated blood eosinophils/100 leukocytes 4 % 0-10 Automated blood basophils/100 leukocytes 0 % 0-10 Blood neutrophils automated count (number/volume) 4.4 10*3 1.8-7.8 Blood lymphocytes automated count (number/volume) 1.5 10*3 1.0-4.0 Blood monocytes automated count (number/volume) 0. 4 10*3 0.0-1.0 Automated eosinophil count 0.3 10*3/uL 0 .0-0.3 Automated blood basophil count (count/volume) 0.0 10*3/uL 0.0-0.1 Comprehensive metabolic panel - 10/01/19 05:50 Serum or plasma sodium measurement (moles/volume) 140 mmol/L 135-145 Serum or plasma potassium measurement (moles/volume) 4.0 mmol/L 3.6-5.0 Serum or plasma chloride measurement (moles/volume) 109 mmol/L 98-107 Carbon dioxide 22 mmol/L 21-32 Serum or plasma anion gap determination (moles/volume) 9 mmol/L 5-14 Serum or plasma urea nitrogen measurement (mass/volume ) 16 mg/dL 7-18 Serum or plasma creatinine measurement (mass/volume) 1.32 mg/dL 0.60-1.30 Serum or plasma urea nitrogen/creatinine mass ratio 12 NRG Serum or plasma creatinine measurement w ith calculation of estimated glomerular filtration rate 52 NRG Serum or plasma glucose measurement (mass/volume) 78 mg/dL 70-105 Serum or plasma calcium measurement (mass/volume) 8.7 mg/dL 8.5-10.1 Serum or plasma total bilirubin measurement (mass/volu me) 0.7 mg/dL 0.1-1.0 Serum or plasma alkaline phosphatase geri surement (enzymatic activity/volume) 92 U/L 40-136 Serum or plasma aspartate aminotransfera se measurement (enzymatic activity/volume) 32 U/L 5-34 Serum or plasma alanine aminotransferase measurement (enzymatic activity/volume) 47 U/L 0-55 Serum or plasma protein measurement (mass/volume) 6.1 g/dL 6.4-8.2 Serum or plasma albumin measurement (mass/volume) 3.2 g/dL 3.2-4.5 CALCIUM CORRECTED 9.3 mg/dL 8.5-10.1 Complete blood count (CBC) with automate d white blood cell (WBC) differential - 03/02/20 17:25 Blood leukocytes automated count (number/volume) 8.7 10*3/uL 4.3-11.0 Blood erythrocytes automated count (number/volume) 4.96 10*6/uL 4.35-5.85 Venous blood hemoglobin measurement (mass/volume) 13.4 g/dL 13.3-17.7 Blood hematocrit (volume fraction) 41 % 40-54 Automated erythrocyte mean corpuscular volume 82 [ foz_us] 80-99 Automated erythrocyte mean corpuscular h emoglobin (mass per erythrocyte) 27 pg 25-34 Automated erythrocyte mean corpuscular h emoglobin concentration measurement (mass/volume) 33 g/dL 32-36 Automated erythrocyte distribution width ratio 17. 1 % 10.0- 14.5 Automated blood platelet count (count/volume) 293 10*3/uL 130-400 Automated blood platelet mean volume measurement 9.8 [foz_us] 7.4-10.4 Automated blood neutrophils/100 leukocytes 75 % 42-75 Automated blood lymphocytes/100 leukocytes 15 % 12-44 Blood monocytes/100 leukocytes 10 % 0-12 Automated blood eosinophils/100 leukocytes 0 % 0-10 Automated blood basophils/100 leukocytes 0 % 0-10 Blood neutrophils automated count (number/volume) 6.5 10*3 1.8-7.8 Blood lymphocytes automated count (number/volume) 1.3 10*3 1.0-4.0 Blood monocytes automated count (number/volume) 0. 8 10*3 0.0-1.0 Automated eosinophil count 0.0 10*3/uL 0 .0-0.3 Automated blood basophil count (count/volume) 0.0 10*3/uL 0.0-0.1 Comprehensive metabolic panel - 03/02/20 17:25 Serum or plasma sodium measurement (moles/volume) 137 mmol/L 135-145 Serum or plasma potassium measurement (moles/volume) 4.2 mmol/L 3.6-5.0 Serum or plasma chloride measurement (moles/volume) 103 mmol/L 98-107 Carbon dioxide 19 mmol/L 21-32 Serum or plasma anion gap determination (moles/volume) 15 mmol/L 5-14 Serum or plasma urea nitrogen measurement (mass/volume ) 14 mg/dL 7-18 Serum or plasma creatinine measurement (mass/volume) 1.46 mg/dL 0.60-1.30 Serum or plasma urea nitrogen/creatinine mass ratio 10 NRG Serum or plasma creatinine measurement w ith calculation of estimated glomerular filtration rate 46 NRG Serum or plasma glucose measurement (mass/volume) 136 mg/dL 70-105 Serum or plasma calcium measurement (mass/volume) 8.8 mg/dL 8.5-10.1 Serum or plasma total bilirubin measurement (mass/volu me) 1.0 mg/dL 0.1-1.0 Serum or plasma alkaline phosphatase geri surement (enzymatic activity/volume) 167 U/L 40-136 Serum or plasma aspartate aminotransfera se measurement (enzymatic activity/volume) 22 U/L 5-34 Serum or plasma alanine aminotransferase measurement (enzymatic activity/volume) 15 U/L 0-55 Serum or plasma protein measurement (mass/volume) 7.6 g/dL 6.4-8.2 Serum or plasma albumin measurement (mass/volume) 3.6 g/dL 3.2-4.5 CALCIUM CORRECTED 9.1 mg/dL 8.5-10.1 PT panel in platelet poor plasma by coag ulation assay - 03/02/20 17:25 Prothrombin time (PT) in platelet poor plasma by coagu lation assay 14.3 s 12.2-14.7 INR in platelet poor plasma or blood by coagulation as say 1.1 0.8-1.4 Activated partial thromboplastin time (a PTT) in platelet poor plasma bycoagulation assay - 03/02/20 17:25 Activated partial thromboplastin time (a PTT) in platelet poor plasma bycoagulation assay 36 s 24-35 Blood lactic acid measurement (moles/vol ume) - 03/02/20 17:25 Blood lactic acid measurement (moles/volume) 2.29 mmol/L 0.50-2.00 Serum or plasma troponin i.cardiac measu rement (mass/volume) - 03/02/20 17:25 Serum or plasma troponin i.cardiac measurement (mass/v olume) < ng/mL <0.028 Bacterial blood culture - 03/02/20 17:38 Bacterial blood culture NG NRG Magnesium - 03/02/20 17:45 Magnesium 1.9 mg/dL 1.6-2.4 Serum or plasma C reactive protein measu rement (mass/volume) - 03/02/20 17:45 Serum or plasma C reactive protein measurement (mass/v olume) 10.77 mg/dL 0.00-0.50 Bacterial blood culture - 03/02/20 17:45 Bacterial blood culture NG NRG Complete urinalysis with reflex to cultu re - 03/02/20 19:04 Urine color determination YELLOW NRG Urine clarity determination CLEAR NR G Urine pH measurement by test strip 6.0 5-9 Specific gravity of urine by test strip 1.020 1.016-1.022 Urine protein assay by test strip, semi-quantitative TRACE NEGATIVE Urine glucose detection by automated test strip NE GATIVE NEGATIVE Erythrocytes detection in urine sediment by light micr oscopy 1+ NEGATIVE Urine ketones detection by automated test strip NE GATIVE NEGATIVE Urine nitrite detection by test strip NEGATIVE NEGATIVE Urine total bilirubin detection by test strip NEGA TIVE NEGATIVE Urine urobilinogen measurement by automated test strip (mass/volume) 0.2 mg/dL < = 1.0 Urine leukocyte esterase detection by dipstick NEG ATIVE NEGATIVE Automated urine sediment erythrocyte cou nt by microscopy (number/high power field) [HPF] NRG Automated urine sediment leukocyte count by microscopy (number/high power field) [HPF] NRG Bacteria detection in urine sediment by light microsco py TRACE NRG Squamous epithelial cells detection in u rine sediment by light microscopy 5-10 NRG Crystals detection in urine sediment by light microsco py NONE NRG Casts detection in urine sediment by light microscopy NONE NRG Mucus detection in urine sediment by light microscopy SMALL NRG Complete urinalysis with reflex to culture NO NRG Complete blood count (CBC) with automate d white blood cell (WBC) differential - 03/03/20 13:20 Blood leukocytes automated count (number/volume) 11.1 10*3/uL 4.3-11.0 Blood erythrocytes automated count (number/volume) 4.73 10*6/uL 4.35-5.85 Venous blood hemoglobin measurement (mass/volume) 12.9 g/dL 13.3-17.7 Blood hematocrit (volume fraction) 39 % 40-54 Automated erythrocyte mean corpuscular volume 83 [ foz_us] 80-99 Automated erythrocyte mean corpuscular h emoglobin (mass per erythrocyte) 27 pg 25-34 Automated erythrocyte mean corpuscular h emoglobin concentration measurement (mass/volume) 33 g/dL 32-36 Automated erythrocyte distribution width ratio 16. 9 % 10.0- 14.5 Automated blood platelet count (count/volume) 270 10*3/uL 130-400 Automated blood platelet mean volume measurement 9.6 [foz_us] 7.4-10.4 Automated blood neutrophils/100 leukocytes 74 % 42-75 Automated blood lymphocytes/100 leukocytes 17 % 12-44 Blood monocytes/100 leukocytes 9 % 0-12 Automated blood eosinophils/100 leukocytes 0 % 0-10 Automated blood basophils/100 leukocytes 0 % 0-10 Blood neutrophils automated count (number/volume) 8.2 10*3 1.8-7.8 Blood lymphocytes automated count (number/volume) 1.9 10*3 1.0-4.0 Blood monocytes automated count (number/volume) 1. 0 10*3 0.0-1.0 Automated eosinophil count 0.0 10*3/uL 0 .0-0.3 Automated blood basophil count (count/volume) 0.0 10*3/uL 0.0-0.1 Comprehensive metabolic panel - 03/03/20 13:20 Serum or plasma sodium measurement (moles/volume) 137 mmol/L 135-145 Serum or plasma potassium measurement (moles/volume) 4.0 mmol/L 3.6-5.0 Serum or plasma chloride measurement (moles/volume) 104 mmol/L 98-107 Carbon dioxide 22 mmol/L 21-32 Serum or plasma anion gap determination (moles/volume) 11 mmol/L 5-14 Serum or plasma urea nitrogen measurement (mass/volume ) 13 mg/dL 7-18 Serum or plasma creatinine measurement (mass/volume) 1.27 mg/dL 0.60-1.30 Serum or plasma urea nitrogen/creatinine mass ratio 10 NRG Serum or plasma creatinine measurement w ith calculation of estimated glomerular filtration rate 54 NRG Serum or plasma glucose measurement (mass/volume) 91 mg/dL 70-105 Serum or plasma calcium measurement (mass/volume) 8.9 mg/dL 8.5-10.1 Serum or plasma total bilirubin measurement (mass/volu me) 1.5 mg/dL 0.1-1.0 Serum or plasma alkaline phosphatase geri surement (enzymatic activity/volume) 157 U/L 40-136 Serum or plasma aspartate aminotransfera se measurement (enzymatic activity/volume) 24 U/L 5-34 Serum or plasma alanine aminotransferase measurement (enzymatic activity/volume) 18 U/L 0-55 Serum or plasma protein measurement (mass/volume) 7.2 g/dL 6.4-8.2 Serum or plasma albumin measurement (mass/volume) 3.5 g/dL 3.2-4.5 CALCIUM CORRECTED 9.3 mg/dL 8.5-10.1 Magnesium - 03/03/20 13:20 Magnesium 2.0 mg/dL 1.6-2.4 Serum or plasma C reactive protein measu rement (mass/volume) - 03/03/20 13:20 Serum or plasma C reactive protein measurement (mass/v olume) 14.11 mg/dL 0.00-0.50 Serum or plasma lithium measurement (mol es/volume) - 03/03/20 13:20 BNP PT 256.5 pg/mL <100.0 Radiology Report from [facility] on 2015 20:23:00 DIAGNOSTIC JOSUE GING REPORT [facility] [address] [place] [address] PHONE #: [phone] FAX #: [phone] Name: ANA WALKER Loc: E.PRA1 B Radiology No: : 1935 Age: 80 Sex: M Status: ADM IN Unit No: [id number] Phys: Nael Jackson Acct: [id number] Reason For Exam: NO PEDAL, POST TIB, POP PULSES Exam Date: 11/17/2015 EXAMS: CPT CODE: [id number] [place]PL[place] T [address]28[address] TIME OF EXAM: 11/17/2015 6:54 PM REASON FOR EXAM: NO PEDAL, POST TIB, POP PULSES COMPARISON: None. Doppler, negro-scale and color-flow imaging of the left lower extremity arterial system was performed. cm/sec: MIDDLEWARE ENGINEER :74 SFA prox:69 SFA mid:77 SFA distal:6 Popliteal mid: 13 Popliteal distal: 6 ISIS : 15 DIRECTOR PEOPLESOFT : 10 Dorsalis Pedis : Absent Left lower extremity: A normal triphasic waveform is seen to the level of the mid SFA. Flow is essentially absent distal to the level of the mid SFA. IMPRESSION: No Doppler arterial blood flow distal to the level of the mid SFA. Findings were discussed with OR nurse who relayed results to Nael White MD on 11/17/2015 7:02 PM approximately. I have personally reviewed these images and approved or corrected the resident physician's interpretation. at 2018 RESIDENT: JAMES MONDRAGON MD Reported and signed by: ERICK VILLEGAS MD PAGE 1 Signed Report (CONTINUED) DIAGNOSTIC IMAGING REPORT [facility] [address] [place] [address] PHONE #: [phone] FAX #: [phone] Name: ANA WALKER Loc: E.PRA1 B Radiology No: : 1935 Age: 80 Sex: M Status: ADM IN Unit No: [id number] Phys: NETTA Nael White Acct: [id number] Reason For Exam: NO PEDAL, POST TIB, POP PULSES Exam Date: 11/17/2015 EXAMS: CPT CODE: [id number] DOPPLER LOW EXTR ART T 86151 <Continued> CC: Daphne Butcher MD; Nael White MD Technologist: NOAH CABRALES Transcribed Date/Time: 11/17/2015 (2017)Chipper Operator: RAÚL Printed Date/Time: 11/17/2015 (2022) BATCH NO: N/A PAGE 2 Signed Report Radiology Report from [facility] on 2015 14:38:00 DIAGNOSTIC [facility]OSUE GING [facility] [address] [place] [address] PHONE #: [phone] FAX #: [phone] Name: ANA WALKER Loc: E.217 1 Radiology No: : 1935 Age: 80 Sex: M Status: ADM IN Unit No: [id number] Phys: NETTA - Nael White Acct: [id number] Reason For Exam: ENDOVASCULAR ANYEUISM REPAIR Exam Date: 11/17/2015 EXAMS: CPT CODE: [id number] SGY ABD AORTA W/RUNOFF 69358 [id number] [place] [address] Radiologist interpretation was not provided for this study. Please refer to the surgeon's intraoperative report for information regarding intraoperative images. at 1434 Reported by: CLAIRE FOWLER Signed by: CLAIRE FOWLER CC: Daphne Butcher MD; Nael White MD Technologist: RYLAND FLOYD Transcribed Date/Time: 11/18/2015 (6159)Chipper Operator: [email or web address] Printed Date/Time: 11/18/2015 (9457) BATCH NO: N/A PAGE 1 Signed Report Radiology Report from [facility] on 2015 14:38:00 DI[address] [facility] [facility] [address] [place] [address] PHONE #: [phone] FAX #: [phone] Name: ANA WALKER Loc: E.217 1 Radiology No: : 1935 Age: 80 Sex: M Status: ADM IN Unit No: [id number] Phys: Nael Jackson Acct: [id number] Reason For Exam: ENDOVASCULAR ANYEUISM REPAIR Exam Date: 11/17/2015 EXAMS: CPT CODE: [id number] SGY ABD AORTA W/RUNOFF 63025 [id number] [place] [address] Radiologist interpretation was not provided for this study. Please refer to the surgeon's intraoperative report for information regarding intraoperative images. at 143 Reported by: CLAIRE FOWLER Signed by: CLAIRE FOWLER CC: Daphne Butcher MD; Nael White MD Technologist: RYLAND HERNANDEZ; EMORY FLOYD Transcribed Date/Time: 11/18/2015 (4704)Chipper Operator: [email or web address] Printed Date/Time: 11/18/2015 (2510) BATCH NO: N/A PAGE 1 Signed Report Radiology Report from [facility] on 2015 01:33:00 DIAGNOSTIC JOSUE GING [facility] [address] [address] PHONE #: [phone] FAX #: [phone] Name: ANA WALKER Loc: E.ICU3 1 Radiology No: : 1935 Age: 80 Sex: M Status: ADM IN Unit No: [id number] Phys: Christina Tidwell Acct: [id number] Reason For Exam: RESPIRATORY DISTRESS ADMIT Exam Date: 11/29/2015 EXAMS: CPT CODE: [id number] CHEST AP/PA ONLY 51398 TIME OF STUDY: 11/29/2015 4:33 PM REASON [...] This is similar to prior studies. at 4531 Reported and signed by: MIKEY MADDOX MD CC: Christina Main MD Technologist: AISHWARYA BOWSER Transcribed Date/Time: 11/29/2015 (1745)Chipper Operator: MAHNAZ Printed Date/Time: 11/30/2015 (0133) BATCH NO: N/A PAGE 1 Signed Report Radiology Report from [facility] on 2016 17:29:00 DIAGNOSTIC JOSUE GING REPORT [facility] [address] [place] [address] PHONE #: [phone] FAX #: [phone] Name: ANA WALKER Loc: BREANNA Radiology No: : 1935 Age: 81 Sex: M Status: REG CLI Unit No: [id number] Phys: JEFERSON Yaya BarahonaShai sidhu Acct: [id number] Reason For Exam: AAA Exam Date: 12/29/2016 EXAMS: CPT CODE: [id number] CT ANGIO CHEST- DISSECT 85929 TIME OF EXAM: 12/29/2016 2:55 PM REASON [...] 1 Signed Report (CONTINUED) DIAG[facility]STIC IMAGING [facility] [address] [place] [address] PHONE #: [phone] FAX #: [phone] Name: [facility] No: : 1935 Age: 81 Sex: M Status: REG CLI Unit No: [id number] Phys: Shai Rushing Acct: [id number] Reason For Exam: linda for Exam: AAA Exam Date: 12/29/2016 --------- EXAMS: CPT CODE: [id number] CT ANGIO CHEST-DISSECT 22686 <Continued> lesion is present. Pleural spaces demonstrate [...] by MIKEY MADDOX MD on 12/15 at 1728 Reported and signed by: MIKEY MADDOX MD CC: Bhavin Fernandez MD Technologist: RYLAND HERNANDEZ; DEL ENRIQUE Transcribed Date/Time: 12/29/2016 (9602)Chipper Operator: MAHNAZ Printed Date/Time: 12/29/2016 (4492) BATCH NO: N/A PAGE 2 Signed Report Radiology Report from [facility] on 05/02/20 18 10:17:00 PATIENT NAME: ANA WALKER UNIT NO: [id number] EXAMS: CPT CODE: [id number] CT ANGIO ABD PEL W CONT 58904 INDICATION: Ischemic bowel, clinical concern for fistula. [...] ossification, within the region of the groin. [facility] NAME: ANA WALKER [address] HP: [phone] AGE: 83 S:[place], [place] [address] : 1935 LOC: W.7423 1 PHYS: Shala Esparza MD R2 PHONE #: [phone] EXAM DATE: 05/01/2018 STATUS: ADM IN FAX #: [phone] A#: [id number] U#: [id number] PAGE 1 Signed Report (CONTINUED) PATIENT NAME: ANA WALKER UNIT NO: [id number] EXAMS: CPT CODE: [id number] CT ANGIO ABD PEL W CONT 36686 <Continued> Trace pleural effusions are noted bilaterally, [...] lower thoracic region and at the lumbosacral [facility] NAME: ANA WALKER [address] HP: [phone] AGE: 83 [place], [place] [address] : 1935 LOC: W.7423 1 PHYS: Shala Esparza MD R2 PHONE #: [phone] EXAM DATE: 05/01/2018 STATUS: ADM IN FAX #: [phone] A#: [id number] U#: [id number] PAGE 2 Signed Report (CONTINUED) PATIENT NAME: ANA WALKER UNIT NO: [id number] EXAMS: CPT CODE: [id number] CT ANGIO ABD PEL W CONT 67710 <Continued> junction. There is grade 1 retrolisthesis [...] PPAUVI EXAM COMPLETE DATE/TIME: 20180501 D/TM:05/02/2018 (1017) [facility] NAME: ANA WALKER [address] HP: [phone] AGE: 83 [place], [place] [address] : 1935 LOC: W.7423 1 PHYS: Shala Esparza MD R2 PHONE #: [phone] EXAM DATE: 05/01/2018 STATUS: ADM IN FAX #: [phone] A#: [id number] U#: [id number] PAGE 3 Signed Report *Final Page* Encounters ACCT No. Visit Date/Time Discharge Status Pt. Type Provider Facility Loc./Unit Complaint [id number] 07/14/2016 09:30:00 07/14/2016 09:30: 00 DIS Outpatient NAEL WHITE FAUSTO, S/P [facility] [id number] 12/16/2015 09:45:00 12/16/2015 23:59: 59 CLS Outpatient PASCUAL WHITEYARITZA dupree s/p [facility] [id number] 11/12/2015 12:03:00 11/12/2015 12:03: 00 DIS Outpatient NAEL WHITE Maris DUPREE [id number] 02/28/2017 00:00:00 DIS Document Registration [id number] 02/03/2018 10:20:00 018 12:30:00 DIS Outpatient Brandyn ORDONEZ, [facility] ER E.CVLO [id number] 12/29/2016 14:00:00 017 14:00:00 DIS Outpatient [facility] E.RAC [id number] 05/03/2016 05:52:00 016 13:50:00 DIS [facility]CV[facility] [id number] 11/29/2015 15:25:00 016 12:03:00 DIS Inpatient Brandyn ORDONEZ, [facility] ER E.T4 [id number] 11/17/2015 11:06:00 016 14:32:00 DIS Inpatient Renetta ORDONEZ, [facility] ER E.T2 [id number] 12/11/2019 10:31:53 12/11/2019 23:59: 59 CLS Outpatient SHAHBAZ GARDUNO [id number] 10/16/2019 15:39:02 10/16/2019 23:59: 59 CLS Outpatient SHAHBAZ GARDUNO [id number] 07/18/2019 15:21:39 07/18/2019 23:59: 59 CLS Outpatient Ayad Osuna [id number] 06/15/2019 09:33:29 06/15/2019 23:59: 59 CLS Outpatient SHAHBAZ GARDUNO [id number] 06/04/2018 10:22:17 23:59:59 CLS Outpatient Nancie ORDONEZ, Jesus Suarez [id number] 04/30/2018 23:47:00 12:19:00 DIS Inpatient Kleber ORDONEZ, Kirit Pollock [facility] W3TN [id number] 02/03/2018 12:30:00 018 12:30:00 CAN Outpatient Brandyn ORDONEZ, Khloe Broussard [facility] [id number] 02/08/2017 09:20:00 017 12:45:00 DIS Outpatient ROBERT ORDONEZ, CORINNE [facility] XRAY [id number] 11/03/2019 14:54:00 17:03:00 DIS Emergency CHING ORDONEZ, GEO Morgan [facility] ER FALL AND HIT HE AD [id number] 09/18/2019 13:25:00 13:35:00 DIS Inpatient MENDENHALL DO, SOLO [facility] IRF L OCCIPITAL IPH [id number] 09/12/2019 19:00:00 21:49:00 DIS Emergency KHLOE ROA APRN [facility] ER FEVER [id number] 08/16/2019 09:50:00 23:59:59 CLS Outpatient GARCIA KRAFT APRN [facility] RAD DYPHAGIA [id number] 07/08/2019 20:10:00 16:35:00 DIS Inpatient MENDENHALL DO, SOLO V [facility] 4TH VERTIGO [id number] 06/12/2019 15:15:00 16:10:00 DIS Outpatient DAPHNE BUTCHER MD [facility] URINARY/RETENTION [id number] 06/08/2019 11:57:00 14:59:00 DIS Outpatient DAPHNE BUTCHER MD [facility] URINARY RETENTION [id number] 06/06/2019 12:53:00 14:00:00 DIS Outpatient GARCIA KRAFT APRN [facility] SDC URINARY RETENTION [id number] 05/25/2019 08:17:00 10:45:00 DIS Inpatient EMILEE HESS MD [facility] 4TH NOSE BLEED [id number] 05/21/2019 16:05:00 23:59:59 CLS Outpatient LEVI ORDONEZ, CORY Spicer [facility] RAD OBSTRUCTIVE HYDROCEPHAL US [id number] 05/21/2019 19:58:00 21:11:00 DIS Emergency MARIIA BANEGAS MD [facility] ER NOSE BLEED [id number] 05/01/2019 09:13:00 23:59:59 CLS Preadmit DAPHNE BUTCHER MD [facility] REHAB BRAIN ANEURYSM [id number] 04/04/2019 12:46:00 09:31:00 DIS Inpatient SOLO MENDENHALL DO, V [facility] IRF BRAIN ANEURYSM [id number] 03/23/2019 17:55:00 20:33:00 DIS Emergency SARA MARQUEZ [facility] ER FALL,HEAD LAC [id number] 03/15/2019 07:34:00 23:59:59 CLS Outpatient KOURTNEY NANCEP [facility] RAD ABD AORTIC ANER YSM [id number] 03/07/2019 12:33:00 23:59:59 CLS Preadmit GARCIA KRAFT APRN [facility] RAD ABDOMINAL AORTIC ANEURY SM [id number] 02/07/2019 15:34:00 21:30:00 DIS Emergency MARIIA BANEGAS MD [facility] ER POST-OP WEAKNESS [id number] 01/25/2019 11:44:00 12:30:00 DIS Outpatient EMILEE HESS MD [facility] SLEEP SYL G47.33 [id number] 2019 10:47:00 23:59:59 CLS Outpatient KOURTNEY NANCE [facility] RAD LEFT RIB PAIN A FTER FALL [id number] 01/08/2019 20:36:00 06:40:00 DIS Outpatient EMILEE HESS MD [facility] SLEEP SYL G47.33 [id number] 12/27/2018 13:19:00 17:50:00 DIS Outpatient RAMÓN PRITCHARD MD [facility] ENDO REFLUX/RECTAL BLEEDING/DIVERTICULITIS [id number] 12/26/2018 10:50:00 11:38:00 DIS Outpatient RAMÓN PRITCHARD MD [facility] PREOP COLONOSCOPY/EGD [id number] 12/19/2018 18:48:00 16:23:00 DIS Inpatient DAPHNE BUTCHER MD [facility] 4TH RECTAL BLEED,DIVERTICUL ITIS [id number] 11/27/2018 14:11:00 23:59:59 CLS Outpatient KOURTNEY NANCE [facility] CARD SOB,CAD,DIZZINE SS [id number] 10/20/2018 10:44:00 23:59:59 CLS Outpatient DAPHNE BUTCHER MD [facility] CARD HTN,CAD [id number] 11/16/2017 09:57:00 23:59:59 CLS Outpatient TIERRA DE MD [facility] RAD H91.93 HEARING LOSS [id number] 11/16/2017 09:55:00 23:59:59 CLS Outpatient DAPHNE BUTCHER MD [facility] LAB CONTRAST PROTOCOL [id number] 11/10/2017 11:19:00 23:59:59 CLS Outpatient TIERRA DE MD [facility] RAD BILAT HEARING LOSS [id number] 10/25/2017 09:13:00 018 12:15:00 DIS Outpatient SALAZAR WALI GERBER [facility] ENDO DYSPHAGIA [id number] 10/20/2017 05:38:00 018 15:05:00 DIS Outpatient WALI SALAZAR DO [facility] PREOP EGD [id number] 03/22/2017 07:53:00 017 23:59:59 CLS Outpatient KOURTNEY NANCE [facility] LAB CONTRAST PROTOC OL [id number] 03/22/2017 07:48:00 017 23:59:59 CLS Outpatient SHAI BARAHONA PA-C [facility] RAD INF RENAL ANEUR YSM [id number] 01/07/2017 10:14:00 017 23:59:59 CLS Outpatient SHAI BARAHONA PA-C [facility] RAD AAA,LE PAD [id number] 01/04/2017 09:21:00 017 23:59:59 CLS Outpatient GARCIA KRAFT APRN [facility] LAB AAA,PAD [id number] 04/07/2016 08:49:00 016 23:59:59 CLS Outpatient LORENA MATA MD, I [facility] RAD N28.1 [id number] 11/27/2015 14:16:00 016 13:50:00 DIS Inpatient DAPHNE BUTCHER MD [facility] 4TH WEAKNESS,ANEMIA,HYPOXEM IA [id number] 06/11/2015 08:27:00 015 13:50:00 DIS Outpatient EMILEE LEUNG MD [facility] SDC [id number] 06/09/2015 10:24:00 015 23:59:59 CLS Outpatient EMILEE LEUNG MD [facility] PREOP [id number] 05/27/2015 15:13:00 015 23:59:59 CLS Outpatient MADISON CARL [facility] RAD [id number] 09/13/2014 09:07:00 014 14:36:00 DIS Emergency MARIA E ORDONEZ, AMELIE Adler [facility] ER [id number] 05/06/2014 15:10:00 014 23:59:59 CLS Outpatient FRANCISCO ORDONEZ, DOUG Payan [facility] RAD [id number] 03/03/2020 13:32:00 Document Registration [id number] 03/02/2020 17:52:00 Document Registration [id number] 12/11/2014 10:40:00 Document Registration [id number] 08/17/2018 08:24:24 018 23:59:59 CLS Outpatient LORENA MATA I
== END 2020-03-03 15:38 | disposition home or self-care (01) ==
LOC: EDUNIT# 13:11 → ER 13:12
DX: I11.0 Hypertensive heart disease with heart failure (principal); I50.9 Heart failure, unspecified; T17.908A Unspecified foreign body in respiratory tract, part unspecified causing other injury, initial encounter; I48.91 Unspecified atrial fibrillation; I25.10 Atherosclerotic heart disease of native coronary artery without angina pectoris; F32.9 Major depressive disorder, single episode, unspecified; G47.30 Sleep apnea, unspecified; M10.9 Gout, unspecified; Z79.899 Other long term (current) drug therapy; Z88.0 Allergy status to penicillin; Z88.1 Allergy status to other antibiotic agents; Z91.041 Radiographic dye allergy status; Z79.82 Long term (current) use of aspirin; Z79.51 Long term (current) use of inhaled steroids; Z95.5 Presence of coronary angioplasty implant and graft; Z82.49 Family history of ischemic heart disease and other diseases of the circulatory system
CPT/HCPCS: 36415; 71045; 80053; 83735; 83880; 85025; 86141; 93041; 96374; 96375